=== PATIENT | female | born 1960 | race Caucasian/White ===

== ENCOUNTER 2022-12-03 08:35 | Outpatient (CLI) | payer OTHER, SELFPAY | END 2022-12-03 08:36 | disposition home or self-care (01) | PROVIDERS: Visit Provider Family Medicine | DX: R07.89 Other chest pain (principal); R11.2 Nausea with vomiting, unspecified | CPT/HCPCS: A0425; A0427 ==

== ENCOUNTER 2023-08-03 09:55 | Day surgery (SDC) | payer OTHER, MEDICARE, SELFPAY ==
[2023-08-03] MEDS: TETRACAINE 0.5% OPHTH 1 DROP EYE-RIGHT ×2 (10:04→10:15)
[2023-08-03] MEDS: KETOROLAC OPHTH 0.5% 1 DROP EYE-RIGHT ×2 (10:08→10:21)
[2023-08-03 10:34] VITALS: BP 145/94; PULSE 80; RESP 16; TEMP 37.2; O2SAT 94; BMI 38.7
[2023-08-03] MEDS: SODIUM CHLORIDE 0.9 % (FLUSH) 10 ML SYRINGE IVF (10:46)
[2023-08-03] MEDS: TETRACAINE 0.5% OPHTH 2 DROP EYE-RIGHT (10:52)
[2023-08-03] MEDS: BALANCED SALT IRRIG SOLN 15 ML EYE-RIGHT (10:54)
--- NOTE | 2023-08-03 11:23 | W.ANESCHARGE ---
Anesthesia Charges Start Date/Time Anesthesia Start Date: 08/03/23 Anesthesia Start Time: 10:48 Stop Date/Time Anesthesia Stop Date: 08/03/23 Anesthesia Stop Time: 11:24
--- NOTE | 2023-08-03 11:32 | W.ANESCHARGE ---
Anesthesia Charges Start Date/Time Anesthesia Start Date: 08/03/23 Anesthesia Start Time: 10:48 Stop Date/Time Anesthesia Stop Date: 08/03/23 Anesthesia Stop Time: 11:24
[2023-08-03 11:37] VITALS: BP 150/89; PULSE 77; RESP 18; TEMP 36.6; O2SAT 97
--- OUTSIDE RECORDS SUMMARY | 2023-08-03 12:34 | XMS_ITS | Encounter Summary ---
Author Name Unknown Organization [facility] Address [address], [place] [address] Care Team Providers Care Licensed Sales Producer Name Role Phone Vahid Castillo MD Primary Care Provider Unava ilable Encounter Details Date Type Department Care Team Description 09/16/1995 [place] [address] [place] [address] Social History Tobacco Use Types Packs/Day Years Used Date Smoking Tobacco: Never Assessed Sex and Gender Information Value Date Recorded Sex Assigned at Not on file Gender Identity Not on file Sexual Orientation Not on file documented as of this encounter Plan of Treatment Not on file documented as of this encounter Visit Diagnoses Not on filedocumented in this encounter Care Teams Licensed Sales Producer Relationship Specialty Start Date End Date Vahid Castillo MD PCP - General 06/06/11 documented as of this encounter
--- OUTSIDE RECORDS SUMMARY | 2023-08-03 12:34 | XMS_ITS | Encounter Summary ---
Author Name Unknown Organization [facility] Address [address], [place] [address] Care Team Providers Care Fishing Lure Assembler Name Role Phone Vahid Castillo MD Primary Care Provider Unava ilable Encounter Details Date Type Department Care Team Description 07/29/1995 Orders Only Bety Baldwin MD [address] [facility] [address] [place], [place] [id number] Social History Tobacco Use Types Packs/Day Years Used Date Smoking Tobacco: Never Assessed Sex and Gender Information Value Date Recorded Sex Assigned at Not on file Gender Identity Not on file Sexual Orientation Not on file documented as of this encounter Plan of Treatment Not on file documented as of this encounter Visit Diagnoses Not on filedocumented in this encounter Care Teams Fishing Lure Assembler Relationship Specialty Start Date End Date Vahid Castillo MD PCP - General 06/06/11 documented as of this encounter
--- OUTSIDE RECORDS SUMMARY | 2023-08-03 12:34 | XMS_ITS | Encounter Summary ---
Author Name Unknown Organization [facility] Address [address] [address] Care Team Providers Care Caramel Cutter Helper Name Role Phone Vahid Castillo MD Primary Care Provider Unava ilable Encounter Details Date Type Department Care Team Description 09/26/1999 Orders Only [facility], [place] [address] Social History Tobacco Use Types Packs/Day Years Used Date Smoking Tobacco: Never Assessed Sex and Gender Information Value Date Recorded Sex Assigned at Not on file Gender Identity Not on file Sexual Orientation Not on file documented as of this encounter Plan of Treatment Not on file documented as of this encounter Visit Diagnoses Not on filedocumented in this encounter Care Teams Caramel Cutter Helper Relationship Specialty Start Date End Date Vahid Castillo MD PCP - General 06/06/11 documented as of this encounter
--- OUTSIDE RECORDS SUMMARY | 2023-08-03 12:34 | XMS_ITS | Encounter Summary ---
Author Name Unknown Organization [facility] Address [address] [place] [address] Care Team Providers Care Recycling Center Operator Name Role Phone Vahid Castillo MD [...] on filedocumented in this encounter Care Teams Recycling Center Operator Relationship Specialty Start Date End Date Vahid Castillo MD PCP - General 06/06/11 documented as of this encounter
--- OUTSIDE RECORDS SUMMARY | 2023-08-03 12:34 | XMS_ITS | Encounter Summary ---
Author Name Unknown Organization [facility] Address [address] [address] Care Team Providers Care Caretaker Grounds Name Role Phone Vahid Castillo MD Primary Care Provider Unava ilable Encounter Details Date Type Department Care Team Description 09/01/1999 [place] [address] [place] [address] Social History Tobacco Use Types Packs/Day Years Used Date Smoking Tobacco: Never Assessed Sex and Gender Information Value Date Recorded Sex Assigned at Not on file Gender Identity Not on file Sexual Orientation Not on file documented as of this encounter Plan of Treatment Not on file documented as of this encounter Visit Diagnoses Not on filedocumented in this encounter Care Teams Caretaker Grounds Relationship Specialty Start Date End Date Vahid Castillo MD PCP - General 06/06/11 documented as of this encounter
--- OUTSIDE RECORDS SUMMARY | 2023-08-03 12:34 | XMS_ITS | Clinical Summary ---
Author Name Unknown Organization [facility] Address [address], [place] [address] Care Team Providers Care Christmas Tree Contractor Name Role Phone Vahid Castillo MD Primary Care Provider Unava ilable Source Comments You are receiving this document as you are listed as the primary care provider,follow-up provider, or the patient has been referred to you for consultation.This is in compliance with the Medicare and[facility] Hospitalcaid EHR Incentive Program,which states Providers who transition their patient to another setting of careor provider of care or refers their patient to another provider of care shouldprovide summary care record for each transition of care or referral. Replaced by [facility] Allergies Active Allergy Reactions Criticality Noted Date [...] Next Due Influenza IIV4 (Quadrivalent ) 0.5mL (48861) 03/19/2014 Influenza, Unspecified Formulation 08/22/2006 Td 12/10/1998,04/05/1990 [...] T Respiratory Rate 18 06/08/2011 7:00 AM BRICKLAYER PAVING BRICK Oxygen Saturation 93% 05/06/2016 2:09 PM CDT [...] age to complete this topic Care Teams Christmas Tree Contractor Relationship Specialty Start Date End Date Vahid Castillo MD PCP - General 06/06/11
--- OUTSIDE RECORDS SUMMARY | 2023-08-03 12:34 | XMS_ITS | Encounter Summary ---
Author Name Unknown Organization [facility] Address [address] [place] [address] Care Team Providers Care Costume Mistress Name Role Phone Vahid Castillo MD Primary [...] on filedocumented in this encounter Care Teams Costume Mistress Relationship Specialty Start Date End Date Vahid Castillo MD PCP - General 06/06/11 documented as of this encounter
--- OUTSIDE RECORDS SUMMARY | 2023-08-03 12:34 | XMS_ITS | Clinical Summary ---
Author Name Unknown Organization [facility] Address [place], [place] [address] Care Team Providers Care Grocery Bagger Name Role Phone Len Adhikari MD Primary [...] MD. 50 mL 0 9 Active Insulin [place], Disposable, (BD INSULIN PEN NEEDLE UF MINI) [...] Care Agent: Roosevelt Hernandez Relationship: spouse Phone: [phone] Secondary Health Care Agent: Amber Rivas Relationship: [...] on file and signed 01/14/2015. Designated pharmacy: [facility] [phone] Prescribing physician:Dr. Dyan Martin MD. Diagnosis: Dysthymia [...] was admitted to hospice 12/06/15. Please call [phone] with questions. Patient has identified Health Care Agent(s): Yes Add Health Care Agents: Yes Health Care Agent(s): Primary Health Care Agent: Roosevelt Hernandez Relationship: spouse Phone: [phone] Secondary Health Care Agent: Amber Rivas Relationship: [...] as needed for immediate comfort.- Avoid calling [phone], call [phone] instead - If possible do not transport [...] Care Agent: Rooseveltchristi FullerHernandez Relationship: Phone: (h) [phone] (c) [phone] Secondary Health Care Agent: Amber Rob Relationship: daughter Phone: (c) [phone] Third Health Care Agent: Juwan Hernandez Relationship: son Phone: (c) [phone] Fourth Health Care Agent: Delma Rob Relationship: daughter Phone: (c) [phone] Patient has Advanced Care Plan Documents (Health Care Directive, POLST): Yes Advance Care Plan Documents: Health Care Directive Patient has identified Specific Treatment Preferences: Yes Specific Treatment Preferences: a.) Code Status: CPR/Attempt Resuscitation Last Assessment & Plan: Advance Care Planning: Disease-specific Session Kaila Hernandez is a [facility] patient and her PCP is Dr. Yuriy Moreno; air tool operator is Dr. Gonzales and Dr. Chiki Benites is her pain doctor. Advance care planning discussions were completed with Kaila and her healthcare agent, , Roosevelt Hernandez. . 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 Kaila tells me she will miss them [...] Archana Young RN CM Advance Care Planning Registered Nurse Hh Case Manager [phone] e-mail: [email or web address] 02/11/2010 Other chronic pancreatitis 07/18/2007 Overview: numerouis [...] 2010 10/31/2010 03/30/2013 Overview: 1st relapse hospitalized [facility] October 2010 Shortness of breath 10/19/2010 [...] seen on ultrasound 2007. Plan: repeat ultrasound. [facility] Screen for colon cancer 04/07/201004/11 Advance [...] the fall. Second seizure was managed at [facility] and records not currently available. 3rd seziure [...] Overview: Dr. Chiki Benites- chronic pain, sees [id number] Dr. Rhys [facility]- [facility] LBP most [...] Routine general medical exam ination at a [facility] care facility 06/15/2005 01/14/2010 Overview: PE: 12/16 [...] Department Care Team Description 06/17/2023 Refill [facility] [address] [place] [address] Mary Del Cid NP Refill Request (Buprenorphine-naloxone ) 06/15/2023 Refill [facility] [address] [place] [address] Mary Del Cid NP Refill Request (Buprenorphine-naloxone [...] on file Medical Devices Implanted Type Area Leaded Glass Installer Device Identifier Shelf Expiration Date Model / Serial / Lot Port Silcn Power 8fr Isp Sgl Lumen - [id number] Implanted:Qty : 1 on 07/19/2011 at [facility] Left: Subclavian Vein 03/19/2013 [id number]# / / [id number] Bone Matrix 2.5cc Bio4 Viable - [id number] Implanted:Qty : 1 on 02/01/2017 by Jovany Gonzalez MD at [facility] Right: Ankle [employer] 01/21/2018 [id number] # / / [id number] Description:Unit No: 034 Plate Ankle 5 Hole Variax - [id number] Implanted:Qty : 1 on 02/01/2017 by Jovany Gonzalez MD at [facility] Right: Ankle [place] [employer] [id number]# / / Description:Sterilization lo ad 3 6 [id number] Screw Foot 3.5x12mm Variax Foot T10 Lock - [id number] Implanted:Qty : 2 on 02/01/2017 by Jovany Gonzalez MD at [facility] Right: Ankle [place] [employer] [id number]# / / Description:Sterilization lo ad 3 6 [id number] Screw Foot 3.5x14mm Variax Foot T10 Lock - [id number] Implanted:Qty : 3 on 02/01/2017 by Jovany Gonzalez MD at [facility] Right: Ankle [employer] [id number]# / / Description:Sterilization lo ad 3 6 [id number] Screw Foot 3.5x46mm Variax Foot T10 Non-Lock - [id number] Implanted:Qty : 1 on 02/01/2017 by Jovany Gonzalez MD at [facility] Right: Ankle [place] [employer] [id number]# / / Description:Sterilization lo ad 3 6 [id number] Screw Foot 3.5x42mm Variax Foot T10 Non-Lock - [id number] Implanted:Qty : 1 on 02/01/2017 by Jovany Gonzalez MD at [facility] Right: Ankle [place] [employer] [id number] # / / Description:Sterilization lo ad 3 6 [id number] Explanted Type Area Leaded Glass Installer Device Identifier Shelf Expiration Date Model / Serial / Lot Wire Kirs .[id number] Smoothacemedical - [id number] Explanted:Qty: 2 on 02/01/2017 at [facility] Right: Ankle [employer] 1645-10-0 00# / / Description:Sterilization lo ad 1 8 [id number] Wire Kirs .[id number] Smooth6/Pk - [id number] Explanted:Qty: 1 on 02/01/2017 at [facility] Right: Ankle [employer] 1646-10-0 00# / / Description:Sterilization lo ad 1 8 [id number] Additional Health Concerns Infection Onset Date Last [...] presenting with C diff symptoms 08/17/2018 11/21/2018 Advance Directives Documents on File Type Date Recorded Patient Plywood And Veneer Repairer Expl anation POLST 12/12/2015 3:32 PM 12/11/15 [...] Comments Code Status Discussion: Discussed Care Teams Grocery Bagger Relationship Specialty Start Date End Date Len Adhikari MD PCP - General 01/27/17
--- OUTSIDE RECORDS SUMMARY | 2023-08-03 12:34 | XMS_ITS | Encounter Summary ---
Author Name Unknown Organization [facility] Address [address], [place] [address] Care Team Providers Care Field Crop Farmworker Name Role Phone Vahid Castillo MD Primary Care Provider Unava ilable Encounter Details Date Type Department Care Team Description 10/03/1999 Orders Only [employer] [place], [place] [address] Social History Tobacco Use Types Packs/Day Years Used Date Smoking Tobacco: Never Assessed Sex and Gender Information Value Date Recorded Sex Assigned at Not on file Gender Identity Not on file Sexual Orientation Not on file documented as of this encounter Plan of Treatment Not on file documented as of this encounter Visit Diagnoses Not on filedocumented in this encounter Care Teams Field Crop Farmworker Relationship Specialty Start Date End Date Vahid Castillo MD PCP - General 06/06/11 documented as of this encounter
--- OUTSIDE RECORDS SUMMARY | 2023-08-03 12:34 | XMS_ITS | Encounter Summary ---
Author Name Unknown Organization [facility] Address [address] [address] Care Team Providers Care Supervisor Die Casting Name Role Phone Vahid Castillo MD Primary Care Provider Unava ilable Encounter Details Date Type Department Care Team Description 09/03/1999 [place] [address] [place] [address] Social History Tobacco Use Types Packs/Day Years Used Date Smoking Tobacco: Never Assessed Sex and Gender Information Value Date Recorded Sex Assigned at Not on file Gender Identity Not on file Sexual Orientation Not on file documented as of this encounter Plan of Treatment Not on file documented as of this encounter Visit Diagnoses Not on filedocumented in this encounter Care Teams Supervisor Die Casting Relationship Specialty Start Date End Date Vahid Castillo MD PCP - General 06/06/11 documented as of this encounter
--- OUTSIDE RECORDS SUMMARY | 2023-08-03 12:34 | XMS_ITS | Encounter Summary ---
Author Name Unknown Organization [facility] Address [address] [place] [address] Care Team Providers Care Lead Manufacturing Engineering Tech Name Role Phone Vahid Castillo MD Primary [...] on filedocumented in this encounter Care Teams Lead Manufacturing Engineering Tech Relationship Specialty Start Date End Date Vahid Castillo MD PCP - General 06/06/11 documented as of this encounter
--- OUTSIDE RECORDS SUMMARY | 2023-08-03 12:34 | XMS_ITS | Encounter Summary ---
Author Name Unknown Organization [facility] Address [address], [place] [address] Care Team Providers Care Thermal Engineer Name Role Phone Vahid Castillo MD Primary Care Provider Unava ilable Encounter Details Date Type Department Care Team Description 09/30/1999 Orders Only [employer], [place] [address] Social History Tobacco Use Types Packs/Day Years Used Date Smoking Tobacco: Never Assessed Sex and Gender Information Value Date Recorded Sex Assigned at Not on file Gender Identity Not on file Sexual Orientation Not on file documented as of this encounter Plan of Treatment Not on file documented as of this encounter Visit Diagnoses Not on filedocumented in this encounter Care Teams Thermal Engineer Relationship Specialty Start Date End Date Vahid Castillo MD PCP - General 06/06/11 documented as of this encounter
--- OUTSIDE RECORDS SUMMARY | 2023-08-03 12:34 | XMS_ITS | Encounter Summary ---
Author Name Unknown Organization [facility] Address [address] [place] [address] Care Team Providers Care Director Multiple Sclerosis Center Name Role Phone Vahid Castillo MD Primary [...] on filedocumented in this encounter Care Teams Director Multiple Sclerosis Center Relationship Specialty Start Date End Date Vahid Castillo MD PCP - General 06/06/11 documented as of this encounter
--- OUTSIDE RECORDS SUMMARY | 2023-08-03 12:34 | XMS_ITS | Encounter Summary ---
Author Name Unknown Organization [facility] Address [address] [address] Care Team Providers Care Practice Manager Name Role Phone Vahid Castillo MD Primary Care Provider Unava ilable Encounter Details Date Type Department Care Team Description 12/01/1999 Orders Only [employer], [place] [address] Social History Tobacco Use Types Packs/Day Years Used Date Smoking Tobacco: Never Assessed Sex and Gender Information Value Date Recorded Sex Assigned at Not on file Gender Identity Not on file Sexual Orientation Not on file documented as of this encounter Plan of Treatment Not on file documented as of this encounter Visit Diagnoses Not on filedocumented in this encounter Care Teams Practice Manager Relationship Specialty Start Date End Date Vahid Castillo MD PCP - General 06/06/11 documented as of this encounter
--- OUTSIDE RECORDS SUMMARY | 2023-08-03 12:34 | XMS_ITS | Encounter Summary ---
Author Name Unknown Organization [facility] Address [address], [place] [address] Care Team Providers Care Digital Associate Name Role Phone Vahid Castillo MD Primary Care Provider Unava ilable Encounter Details Date Type Department Care Team Description 01/26/2000 Orders Only [place] [facility] [place] [address] Klaus De MD [address] [place] [address] Social History Tobacco Use Types Packs/Day Years Used Date Smoking Tobacco: Never Assessed Sex and Gender Information Value Date Recorded Sex Assigned at Not on file Gender Identity Not on file Sexual Orientation Not on file documented as of this encounter Plan of Treatment Not on file documented as of this encounter Visit Diagnoses Not on filedocumented in this encounter Care Teams Digital Associate Relationship Specialty Start Date End Date Vahid Castillo MD PCP - General 06/06/11 documented as of this encounter
--- OUTSIDE RECORDS SUMMARY | 2023-08-03 12:34 | XMS_ITS | Encounter Summary ---
Author Name Unknown Organization [facility] Address [address] [place] [address] Care Team Providers Care Fur Scraper Name Role Phone Vahid Castillo MD Primary [...] on filedocumented in this encounter Care Teams Fur Scraper Relationship Specialty Start Date End Date Vahid Castillo MD PCP - General 06/06/11 documented as of this encounter
--- OUTSIDE RECORDS SUMMARY | 2023-08-03 12:34 | XMS_ITS | Encounter Summary ---
Author Name Unknown Organization [facility] Address [address], [place] [address] Care Team Providers Care Senior Mechanical Project Manager Name Role Phone Vahid Castillo MD Primary Care Provider Unava ilable Encounter Details Date Type Department Care Team Description 12/08/1999 Orders Only [employer], [place] [address] Social History Tobacco Use Types Packs/Day Years Used Date Smoking Tobacco: Never Assessed Sex and Gender Information Value Date Recorded Sex Assigned at Not on file Gender Identity Not on file Sexual Orientation Not on file documented as of this encounter Plan of Treatment Not on file documented as of this encounter Visit Diagnoses Not on filedocumented in this encounter Care Teams Senior Mechanical Project Manager Relationship Specialty Start Date End Date Vahid Castillo MD PCP - General 06/06/11 documented as of this encounter
--- OUTSIDE RECORDS SUMMARY | 2023-08-03 12:34 | XMS_ITS | Encounter Summary ---
Author Name Unknown Organization [facility] Address [address], [place] [address] Care Team Providers Care Frame Carver Spindle Name Role Phone Vahid Castillo MD Primary Care Provider Unava ilable Encounter Details Date Type Department Care Team Description 07/21/1995 Orders Only Bety Baldwin MD [address] [facility] [address] [place], [place] [id number] Social History Tobacco Use Types Packs/Day Years Used Date Smoking Tobacco: Never Assessed Sex and Gender Information Value Date Recorded Sex Assigned at Not on file Gender Identity Not on file Sexual Orientation Not on file documented as of this encounter Plan of Treatment Not on file documented as of this encounter Visit Diagnoses Not on filedocumented in this encounter Care Teams Frame Carver Spindle Relationship Specialty Start Date End Date Vahid Castillo MD PCP - General 06/06/11 documented as of this encounter
--- OUTSIDE RECORDS SUMMARY | 2023-08-03 12:34 | XMS_ITS | Encounter Summary ---
Author Name Unknown Organization [facility] Address [address] [place] [address] Care Team Providers Care A/C Tech Name Role Phone Vahid Castillo MD [...] on filedocumented in this encounter Care Teams A/C Tech Relationship Specialty Start Date End Date Vahid Castillo MD PCP - General 06/06/11 documented as of this encounter
--- OUTSIDE RECORDS SUMMARY | 2023-08-03 12:34 | XMS_ITS | Encounter Summary ---
Author Name Unknown Organization [facility] Address [address] [address] Care Team Providers Care Restaurant Shift Leader Name Role Phone Vahid Castillo MD Primary Care Provider Unava ilable Encounter Details Date Type Department Care Team Description 01/11/2000 Orders Only [place] [facility] [place] [address] Klaus De MD [address] [place] [address] Social History Tobacco Use Types Packs/Day Years Used Date Smoking Tobacco: Never Assessed Sex and Gender Information Value Date Recorded Sex Assigned at Not on file Gender Identity Not on file Sexual Orientation Not on file documented as of this encounter Plan of Treatment Not on file documented as of this encounter Visit Diagnoses Not on filedocumented in this encounter Care Teams Restaurant Shift Leader Relationship Specialty Start Date End Date Vahid Castillo MD PCP - General 06/06/11 documented as of this encounter
--- OUTSIDE RECORDS SUMMARY | 2023-08-03 12:34 | XMS_ITS | Encounter Summary ---
Author Name Unknown Organization [facility] Address [address] [address] Care Team Providers Care Networks Software Consultant Name Role Phone Vahid Castillo MD Primary Care Provider Unava ilable Encounter Details Date Type Department Care Team Description 11/30/1999 Orders Only [employer], [place] [address] Social History Tobacco Use Types Packs/Day Years Used Date Smoking Tobacco: Never Assessed Sex and Gender Information Value Date Recorded Sex Assigned at Not on file Gender Identity Not on file Sexual Orientation Not on file documented as of this encounter Plan of Treatment Not on file documented as of this encounter Visit Diagnoses Not on filedocumented in this encounter Care Teams Networks Software Consultant Relationship Specialty Start Date End Date Vahid Castillo MD PCP - General 06/06/11 documented as of this encounter
--- OUTSIDE RECORDS SUMMARY | 2023-08-03 12:34 | XMS_ITS | Encounter Summary ---
Author Name Unknown Organization [facility] Address [address] [place] [address] Care Team Providers Care Hand Binder Cutter Name Role Phone Vahid Castillo MD Primary [...] on filedocumented in this encounter Care Teams Hand Binder Cutter Relationship Specialty Start Date End Date Vahid Castillo MD PCP - General 06/06/11 documented as of this encounter
--- OUTSIDE RECORDS SUMMARY | 2023-08-03 12:34 | XMS_ITS | Encounter Summary ---
Author Name Unknown Organization [facility] Address [address] [address] Care Team Providers Care Home Care Chaplain Name Role Phone Vahid Castillo MD Primary Care Provider Unava ilable Encounter Details Date Type Department Care Team Description 12/04/1999 Orders Only [place] [facility] [place] [address] Klaus De MD [address] [place] [address] Social History Tobacco Use Types Packs/Day Years Used Date Smoking Tobacco: Never Assessed Sex and Gender Information Value Date Recorded Sex Assigned at Not on file Gender Identity Not on file Sexual Orientation Not on file documented as of this encounter Plan of Treatment Not on file documented as of this encounter Visit Diagnoses Not on filedocumented in this encounter Care Teams Home Care Chaplain Relationship Specialty Start Date End Date Vahid Castillo MD PCP - General 06/06/11 documented as of this encounter
--- OUTSIDE RECORDS SUMMARY | 2023-08-03 12:35 | XMS_ITS | Encounter Summary ---
Author Name Unknown Organization [facility] Address [address] [address] Care Team Providers Care Metal Dresser Name Role Phone Vahid Castillo MD Primary Care Provider Unava ilable Encounter Details Date Type Department Care Team Description 07/20/1995 Orders Only [facility] Jese Courtney MD [address] [address] Social History Tobacco Use Types Packs/Day Years Used Date Smoking Tobacco: Never Assessed Sex and Gender Information Value Date Recorded Sex Assigned at Not on file Gender Identity Not on file Sexual Orientation Not on file documented as of this encounter Plan of Treatment Not on file documented as of this encounter Visit Diagnoses Not on filedocumented in this encounter Care Teams Metal Dresser Relationship Specialty Start Date End Date Vahid Castillo MD PCP - General 06/06/11 documented as of this encounter
--- OUTSIDE RECORDS SUMMARY | 2023-08-03 12:35 | XMS_ITS | Encounter Summary ---
Author Name Unknown Organization [facility] Address [address], [place] [address] Care Team Providers Care Project Construction Assistant Manager Name Role Phone Vahid Castillo MD Primary Care Provider Unava ilable Encounter Details Date Type Department Care Team Description 07/21/1994 Orders Only [facility] Jese Courtney MD [address] [address] Social History Tobacco Use Types Packs/Day Years Used Date Smoking Tobacco: Never Assessed Sex and Gender Information Value Date Recorded Sex Assigned at Not on file Gender Identity Not on file Sexual Orientation Not on file documented as of this encounter Plan of Treatment Not on file documented as of this encounter Visit Diagnoses Not on filedocumented in this encounter Care Teams Project Construction Assistant Manager Relationship Specialty Start Date End Date Vahid Castillo MD PCP - General 06/06/11 documented as of this encounter
--- OUTSIDE RECORDS SUMMARY | 2023-08-03 12:35 | XMS_ITS | Encounter Summary ---
Author Name Unknown Organization [facility] Address [address], [place] [address] Care Team Providers Care Otolaryngology Teacher Name Role Phone Vahid Castillo MD Primary Care Provider Unava ilable Encounter Details Date Type Department Care Team Description 07/17/1995 Orders Only Erick Pham MD [address] [place], [place] [address] Social History Tobacco Use Types Packs/Day Years Used Date Smoking Tobacco: Never Assessed Sex and Gender Information Value Date Recorded Sex Assigned at Not on file Gender Identity Not on file Sexual Orientation Not on file documented as of this encounter Plan of Treatment Not on file documented as of this encounter Visit Diagnoses Not on filedocumented in this encounter Care Teams Otolaryngology Teacher Relationship Specialty Start Date End Date Vahid Castillo MD PCP - General 06/06/11 documented as of this encounter
--- OUTSIDE RECORDS SUMMARY | 2023-08-03 12:35 | XMS_ITS | Encounter Summary ---
Author Name Unknown Organization [facility] Address [address] [address] Care Team Providers Care Program Attendant Name Role Phone Vahid Castillo MD Primary Care Provider Unava ilable Encounter Details Date Type Department Care Team Description 04/19/1995 Orders Only [facility] Jese Courtney MD [facility] [id number] [place] [address] Social History Tobacco Use Types Packs/Day Years Used Date Smoking Tobacco: Never Assessed Sex and Gender Information Value Date Recorded Sex Assigned at Not on file Gender Identity Not on file Sexual Orientation Not on file documented as of this encounter Plan of Treatment Not on file documented as of this encounter Visit Diagnoses Not on filedocumented in this encounter Care Teams Program Attendant Relationship Specialty Start Date End Date Vahid Castillo MD PCP - General 06/06/11 documented as of this encounter
--- OUTSIDE RECORDS SUMMARY | 2023-08-03 12:35 | XMS_ITS | Encounter Summary ---
Author Name Unknown Organization [facility] Address [address] [address] Care Team Providers Care Tobacco Primer Machine Operator Name Role Phone Vahid Castillo MD Primary Care Provider Unava ilable Encounter Details Date Type Department Care Team Description 10/11/1994 Orders Only [facility] Jese Courtney MD [facility] [id number] [place] [address] Social History Tobacco Use Types Packs/Day Years Used Date Smoking Tobacco: Never Assessed Sex and Gender Information Value Date Recorded Sex Assigned at Not on file Gender Identity Not on file Sexual Orientation Not on file documented as of this encounter Plan of Treatment Not on file documented as of this encounter Visit Diagnoses Not on filedocumented in this encounter Care Teams Tobacco Primer Machine Operator Relationship Specialty Start Date End Date Vahid Castillo MD PCP - General 06/06/11 documented as of this encounter
--- OUTSIDE RECORDS SUMMARY | 2023-08-03 12:35 | XMS_ITS | Encounter Summary ---
Author Name Unknown Organization [facility] Address [address] [address] Care Team Providers Care Special Client Bus Driver Name Role Phone Vahid Castillo MD Primary Care Provider Unava ilable Encounter Details Date Type Department Care Team Description 05/24/1995 Orders Only Bety Baldwin MD [address] [facility] [address] [place], [place] [id number] Social History Tobacco Use Types Packs/Day Years Used Date Smoking Tobacco: Never Assessed Sex and Gender Information Value Date Recorded Sex Assigned at Not on file Gender Identity Not on file Sexual Orientation Not on file documented as of this encounter Plan of Treatment Not on file documented as of this encounter Visit Diagnoses Not on filedocumented in this encounter Care Teams Special Client Bus Driver Relationship Specialty Start Date End Date Vahid Castillo MD PCP - General 06/06/11 documented as of this encounter
--- OUTSIDE RECORDS SUMMARY | 2023-08-03 12:35 | XMS_ITS | Clinical Summary ---
Author Name Unknown Organization [facility] Address [address] [place] [address]. [place] [address] Care Team Providers Care Banquet Line Cook Name Role Phone Jovany Gonzalez MD Unavailable CrissyStaci jeong NP Unavailable [phone] Unavailable [phone] Roshni Nascimento RN Unavailable Unavailable Kiet Swain MD Unavailable [phone] Winsome Pike APRN GEOPHYSICS PROFESSOR Unavailable [phone] Tori Hines [facility] Unavailable Miranda Queen [facility] Unavailable Unavailable Marisel Armando MD Unavailable Wesley Barrett MD Unavailable [phone] Dyan Fuentes MD Primary Care Provider [phone] Dyan Fuentes MD Unavailable [phone] Katiana Read MD Unavailable [phone] Mary Del Cid VETERINARY VIROLOGIST Unavailable [phone] Elham Stack [facility] Unavailable [phone] Aubrey Jones MD Unavailable [phone] Blanquita Morales Unavailable Unavailable Aubrey Jones MD Unavailable [phone] Allergies Active Allergy Reactions Criticality Noted Date [...] 1 06/14/20 22 Active Continuous Blood Gluc Skin Care Instructor (DEXCOM G6 SENIOR MANUFACTURING ENGINEER) DEVIIndications:T ype 2 diabetes mellitus without complication, [...] 4 times daily 0 Active nystatin (MYCOSTATIN) [id number] UNIT/GM external ointment Apply topically 2 times [...] nasal sprayIndications: At risk for substance overdose [place] 1 spray (4 mg) into one nostril [...] Type Department Care Team Description 08/02/2023 Telephone [facility] [place] [id number] [facility] [address] [place] [address] Mary Del Cid NP Medication Request 08/01/2023 2:00 PM OPERATING SYSTEMS SPECIALIST Office Visit [facility] [address] [place] [address] Haydee Moody NP Preop general physical exam (Primary Dx); Need for shingles vaccine; Benign essential hypertension; Chronic obstructive pulmonary disease, unspecified COPD type (H); Morbid obesity (H); Hypertriglyceridemia; Hypothyroidism, unspecified type; Chronic kidney disease, stage 3a (H); Uncomplicated opioid dependence (H); Type 1 diabetes mellitus with other specified complication (H) 08/01/2023 Travel 07/26/2023 Telephone [facility] [address] [place] [address] Dyan Fuentes MD Panel Management 07/25/2023 MyC Medical Advice [address] [address] Roshni Nascimento RN 07/21/2023 Refill [facility] [address] [place] [address] Katiana Read MD Medication Refill 07/19/2023 3:00 PM OPERATING SYSTEMS SPECIALIST Virtual Visit [facility] [address] [facility] [address] [place] [address] Mary Del Cid NP Chronic pain syndrome (Primary Dx); S/P lumbar laminectomy; S/P cervical spinal fusion; Muscle spasm 07/18/2023 Telephone [facility] [address] [place] [address] Mary Del Cid NP Opioid Refill (buprenorphine HCl-naloxone HCl (SUBOXONE) 4-1 MG per film ) 07/14/2023 Orders Only [address] [address] Lenka Parks PA-C Postprocedural hypothyroidism 07/13/2023 Telephone [facility] [address] [place] [address] Katiana Read MD 07/12/2023 10:30 AM OPERATING SYSTEMS SPECIALIST Office Visit [facility] [address] [place] [address] Lenka Parks PA-C Type 2 diabetes mellitus without complication, without long-term current use of insulin (H) (Primary Dx); Chronic kidney disease, stage 3a (H); Postablative hypothyroidism; Type 2 diabetes mellitus without complication, with long-term current use of insulin (H); Type 1 diabetes mellitus with diabetic neuropathy (H) 07/12/2023 MyC Medical Advice [facility] [address] [facility] 1st [place] [address] Sagrario Chidi S 07/12/2023 MyC Medical Advice [facility] [address] [place] [phone] Rachelle Benites ROBOTIC WELD TECHNICIAN MyChart Communication 07/12/2023 Travel 07/11/2023 Travel 06/23/2023 2:30 PM OPERATING SYSTEMS SPECIALIST Office Visit [address] [address] Dyan Fuentes MD Routine general [...] <100 06/23/2023 Travel 06/20/2023 Travel 06/20/2023 Refill [facility] [place] [address] [place] [address] [address] [place] [address] Mary Del Cid NP Opioid Refill (buprenorphine HCl-naloxone HCl (SUBOXONE) 4-1 MG per film) 05/31/2023 4:00 PM OPERATING SYSTEMS SPECIALIST Therapy Visit [facility] [address] [place] [address] [address] [place] [address] Dyan Villar PT Chronic pain syndrome (Primary Dx) 05/31/2023 Travel 05/27/2023 Telephone [facility] [address] [place] [phone] Dyan Fuentes MD Progress 05/17/2023 Refill [facility] [place] [address] [facility] [address] [place] [address] Mary Del Cid NP Opioid Refill (buprenorphine HCl-naloxone HCl (SUBOXONE) 4-1 MG per film) 05/12/2023 2:30 PM CDT Office Visit [facility] [address] [place] [phone] Dyan Fuentes MD Chronic obstructive pulmonary disease, unspecified COPD type (H) (Primary Dx); Tobacco use disorder; Benign essential hypertension; Type 2 diabetes mellitus without complication, with long-term current use of insulin (H); Vitamin B12 deficiency; Hypertriglyceridemia; Gastroesophageal reflux disease without esophagitis; Hyperlipidemia LDL goal <100; Abdominal pain, generalized; Elevated d-dimer 05/12/2023 Travel 05/11/2023 3:40 PM CDT Therapy Visit [facility] [address] [facility] [address] [place] [address] Mary Del Cid NP Edwards, Jennifer, PT Chronic pain syndrome (Primary Dx) 05/11/2023 Travel 05/03/2023 10:30 AM CDT Office Visit [facility] [address] [place] [address] [address] [place] [phone] Aubrey Jones MD Abnormal electrocardiogram 05/03/[address] [address] Dyan Fuentes MD 05/03/2023 Travel from Last 3 Months Immunizations Name Administration Dates Next Due COVID-19 12+ () (Pfizer) 05/12/2023 COVID-19 Vaccine (Art.[employer]) 09/22/2020 Flu, Unspecified 08/22/2006 Hepatitis B, Adult [...] week 06/20/2023 How often do you attend druze or rastafarian serv ices? Never 06/20/2023 Do you belong to any clubs o r organizations such as druze groups, unions, fraternal or athletic groups, or [...] Answer Date Recorded PHQ-2 Score 2 08/01/2023 [facility] of Occupat [...] Comments Blood Pressure 119/82 08/01/2023 1:22 PM OPERATING SYSTEMS SPECIALIST Pulse 70 08/01/2023 1:22 PM OPERATING SYSTEMS SPECIALIST Temperature 36.6 ??C (97.8 ??F) 08/01/2023 1:22 PM CS T Respiratory Rate 20 08/01/2023 1:22 PM OPERATING SYSTEMS SPECIALIST Oxygen Saturation 96% 08/01/2023 1:22 PM OPERATING SYSTEMS SPECIALIST Inhaled Oxygen Concentration - - Weight 115.7 kg (255 lb) 08/01/2023 1:22 PM OPERATING SYSTEMS SPECIALIST Height 172.7 cm (5' 8) 08/01/2023 1:22 PM OPERATING SYSTEMS SPECIALIST Body Mass Index 38.77 08/01/2023 1:22 PM OPERATING SYSTEMS SPECIALIST Plan of Treatment Upcoming Encounters Date Type Department Care Team (Late st Contact Info) Description 08/18/2023 3:00 PM OPERATING SYSTEMS SPECIALIST Office Visit [facility] [address] [place] [address] Katiana Read MD [address] [place] [address] Health Maintenance Due Date Last [...] Blanquita Morales Medical Devices Implanted Type Area Government Affairs Specialist Device Identifier Shelf Expiration Date Model / Serial / Lot Bone Matrix 5c Bio4 [id number] - [id number] Implanted:Qty: 1 on 12/13/2017 Bone/Tissu e/Biologic Right: Ankle [employer] 01/18/2019 [id number] / [id number] / [id number] Graft Bone Putty Dbx 01ml [id number] - [id number] Implanted:Qty: 1 on 05/18/2021 by Wesley Barrett MD at [facility] Bone/Tissu e/Biologic N/A: Spine Cervical [employer] 11/19/2022 [id number] / / [id number] [place] Iconix 2.3mm With 2.0mm Braid Implanted:Qty: 1 on 12/13/2017 Metallic Hardware/A nchor Right: Ankle [employer] 07/02/2019 [id number] / / [id number] 6.5mm Low Profile Hex Scr 20mm Implanted:Qty: 1 on 08/06/2020 by Lencho Mayo MD at [facility] Metallic Hardware/A nchor Right: Hip [employer] 08/18/2024 [id number] / / [id number] 4.[address] Screw Implanted:Qty: 1 on 05/18/2021 by Wesley Barrett MD at [facility] Metallic Hardware/A nchor N/A: Spine Cervical [employer] [id number] / / [id number] 2020 Imp Head Femoral Strk Biolox Delta Ceramic V40 36mm Implanted:Qty: 1 on 08/06/2020 by Lencho Mayo MD at [facility] Total Joint Component/ Insert Right: Hip [employer] 04/10/2025 [id number] 6 / / [id number] Power Port Trident Ii Tritanium, Clusterhole Acetabular Shell, Janeth 50mm Implanted:Qty: 1 on 08/06/2020 by Lencho Mayo MD at [facility] Right: Hip [employer] 03/15/2023 702-04-50 D / / [id number] Endoskeleton Tc Interbody System Medium 16mmx 14mm X 7mm- 6 Degree Implanted:Qty: 1 on 05/18/2021 by Wesley Barrett MD at [facility] N/A: Spine Cervical [employer] 02/05/2026 [id number] -[id number] / / [id number] Explanted Type Area Government Affairs Specialist Device Identifier Shelf Expiration Date Model / Serial / Lot 3.[address] Screw Explanted:Qty : 1 on 05/18/2021 by Wesley Barrett MD at [facility] Metallic Hardware/Anc hor N/A: Spine Cervical [employer] [id number] / / [id number] 11NOV 2020 Port-/ 8 Implanted:Qty : 1 on 08/31/2017 by Ace Valles MD Explanted:Qty : 1 on 08/12/2020 by Ace Valles MD Port Right: Vein BARD 04/09/2018 REF [id number] / / [id number] Procedures Procedure Name Priority Date/Time Associated Diagnosis Comments T4 FREE Routine 07/12/2023 11:07 AM OPERATING SYSTEMS SPECIALIST Postablative hypothyroidism TSH Routine 07/12/2023 11:07 AM OPERATING SYSTEMS SPECIALIST Postablative hypothyroidism LIPID REFLEX TO DIRECT LDL PANEL Routine 06/23/2023 3:28 PM OPERATING SYSTEMS SPECIALIST Hyperlipidemia LDL goal <100 ALBUMIN RANDOM URINE QUANTITATIVE Routine 06/23/2023 3:28 PM OPERATING SYSTEMS SPECIALIST Type 2 diabetes mellitus without complication, with long-term current use of insulin (H) URINE DRUG SCREEN CLINIC Routine 06/23/2023 3:28 PM OPERATING SYSTEMS SPECIALIST Other chronic pain HEMOGLOBIN A1C Routine 06/23/2023 3:28 PM OPERATING SYSTEMS SPECIALIST Type 2 diabetes mellitus without complication, with long-term current use of insulin (H) BASIC METABOLIC PANEL Routine 06/23/2023 3:28 PM OPERATING SYSTEMS SPECIALIST Benign essential hypertension D DIMER QUANTITATIVE Routine 05/12/2023 2:50 PM CDT Elevated d-dimer EKG 12-LEAD COMPLETE W/READ - CLINICS Routine 05/03/2023 Abnormal electrocardiogram from Last 3 Months Results * (ABNORMAL) TSH (07/12/2023 11:07 AM OPERATING SYSTEMS SPECIALIST) TSH 74.10(H) 0.30 - 4.20 uIU/mL 07/12/2023 10:35 PM OPERATING SYSTEMS SPECIALIST [facility] Blood BLOOD SPECIMEN / Unknown Venipuncture / Unknown 07/12/2023 11:07 AM OPERATING SYSTEMS SPECIALIST 07/12/2023 11:07 AM OPERATING SYSTEMS SPECIALIST Lenka Parks PA-C LAB - BLOOD ORDERABL ES [facility] [address] [facility], [address] [place] [address], [facility] [phone] * (ABNORMAL) T4, free (07/12/2023 11:07 AM OPERATING SYSTEMS SPECIALIST) Free T4 0.53(L) 0.90 - 1.70 ng/dL 07/12/2023 10:35 PM OPERATING SYSTEMS SPECIALIST [facility] Blood BLOOD SPECIMEN / Unknown Venipuncture / Unknown 07/12/2023 11:07 AM OPERATING SYSTEMS SPECIALIST 07/12/2023 11:07 AM OPERATING SYSTEMS SPECIALIST Lenka Parks PA-C LAB - BLOOD ORDERABL ES [facility] [place] [facility] [address] [facility], [address] [place] [address] [phone] * (ABNORMAL) Drug Abuse Screen Panel 13, Urine (Pain Care Map) - lab collect (06/23/2023 3:28 PM OPERATING SYSTEMS SPECIALIST) Pathologist [facility] Cannabinoids (67-mpz-3-carboxy -9-THC) Detected(A ) Not Detected, Indeterminate 06/24/2023 2:08 PM OPERATING SYSTEMS SPECIALIST [facility] Comment: Cutoff for a positive cannabinoid is greater than 50 ng/ml. This is an unconfirmed screening result to be used for medical purposes only. Phencyclidine Not Detected Not Detected, Indeterminate 06/24/2023 2:08 PM OPERATING SYSTEMS SPECIALIST [facility] Comment:Cutoff for a negativ e PCP is 25 ng/mL or less. Cocaine (Benzoylecgonine) Not Detected Not Detected, Indeterminate 06/24/2023 2:08 PM OPERATING SYSTEMS SPECIALIST [facility] Comment:Cutoff for a negativ e cocaine is 150 ng/ml or less. Methamphetamine (d-Methamphetamin e) Not Detected Not Detected, Indeterminate 06/24/2023 2:08 PM OPERATING SYSTEMS SPECIALIST [facility] Comment:Cutoff for a negativ e methamphetamine is 500 ng/ml or less. Opiates (Morphine) Not Detected Not Detected, Indeterminate 06/24/2023 2:08 PM OPERATING SYSTEMS SPECIALIST [facility] Comment:Cutoff for a negativ e opiate is 100 ng/ml or less. Amphetamine (d-Amphetamine) Not Detected Not Detected, Indeterminate 06/24/2023 2:08 PM OPERATING SYSTEMS SPECIALIST [facility] Comment:Cutoff for a negativ e amphetamine is 500 ng/mL or less. Benzodiazepines (Nordiazepam) Not Detected Not Detected, Indeterminate 06/24/2023 2:08 PM OPERATING SYSTEMS SPECIALIST [facility] Comment:Cutoff for a negativ e benzodiazepine is 150 ng/ml or less. Tricyclic Antidepressants (Desipramine) Not Detected Not Detected, Indeterminate 06/24/2023 2:08 PM OPERATING SYSTEMS SPECIALIST [facility] Comment:Cutoff for a negativ e tricyclic antidepressant is 300 ng/ml or less. Methadone Not Detected Not Detected, Indeterminate 06/24/2023 2:08 PM OPERATING SYSTEMS SPECIALIST [facility] Comment:Cutoff for a negativ e methadone is 200 ng/ml or less. Barbiturates (Butalbital) Not Detected Not Detected, Indeterminate 06/24/2023 2:08 PM OPERATING SYSTEMS SPECIALIST [facility] Comment:Cutoff for a negativ e barbituate is 200 ng/ml or less. Oxycodone Not Detected Not Detected, Indeterminate 06/24/2023 2:08 PM OPERATING SYSTEMS SPECIALIST [facility] Comment:Cutoff for a negativ e oxycodone is 100 ng/mL or less. Buprenorphine Detected(A ) Not Detected, Indeterminate 06/24/2023 2:08 PM OPERATING SYSTEMS SPECIALIST [facility] Comment: Cutoff for a positive buprenorphine is greater than 10 ng/ml. This is an unconfirmed screening result to be used for medical purposes only. Urine MID-STREAM URINE SPECIMEN / Unknown Non-blood Collection / Unknown 06/23/2023 3:28 PM OPERATING SYSTEMS SPECIALIST 06/23/2023 3:34 PM OPERATING SYSTEMS SPECIALIST Dyan Fuentes MD LAB - URINE ORDER LENA [facility] [address] Lab (no room number, 1st floor of clinic) [place] [address], [facility] [phone] * Albumin Random Urine Quantitative with Creat Ratio (06/23/2023 3:28 PM OPERATING SYSTEMS SPECIALIST) Creatinine Urine mg/dL 42.4 mg/dL 06/24/2023 6:21 PM OPERATING SYSTEMS SPECIALIST [facility] Comment:The reference ranges have not been established in urine creatinine. The results should be integrated into the clinical context for interpretation. Albumin Urine mg/L <12.0 mg/L 2022 6:21 PM OPERATING SYSTEMS SPECIALIST [facility] Comment:The reference ranges have not been established in urine albumin. The results should be integrated into the clinical context for interpretation. Albumin Urine mg/g Cr 06/24/2023 6:21 PM OPERATING SYSTEMS SPECIALIST [facility] Comment: Unable to calculate, urine [...] control, and institution of therapy with an atlklddqjyx-njbxwuzcbu-qnnqbq (MACK) inhibitor (if the patient can tolerate it). ?? Urine MID-STREAM URINE SPECIMEN / Unknown Non-blood Collection / Unknown 06/23/2023 3:28 PM OPERATING SYSTEMS SPECIALIST 06/23/2023 3:34 PM OPERATING SYSTEMS SPECIALIST Dyan Fuentes MD LAB - URINE ORDER LENA [facility] [address] [facility], [address] [place] [address], [facility] [phone] * (ABNORMAL) Lipid panel reflex to direct LDL Fasting (06/23/2023 3:28 PM OPERATING SYSTEMS SPECIALIST) Cholesterol 244(H) <200 mg/dL 06/24/2023 6:12 PM OPERATING SYSTEMS SPECIALIST [facility] Triglycerides 168(H) <150 mg/dL 06/24/2023 6:12 PM OPERATING SYSTEMS SPECIALIST [facility] Direct Measure HDL 75 >=50 mg/dL 06/24/2023 6:12 PM OPERATING SYSTEMS SPECIALIST [facility] LDL Cholesterol Calculated 135(H) <=100 mg/dL 06/24/2023 6:12 PM OPERATING SYSTEMS SPECIALIST [facility] Non HDL Cholesterol 169(H) <130 mg/dL 06/24/2023 6:12 PM OPERATING SYSTEMS SPECIALIST [facility] Patient Fasting > 8hrs? Yes 06/24/2023 6:12 PM OPERATING SYSTEMS SPECIALIST [facility] Blood BLOOD SPECIMEN / Unknown Venipuncture / Unknown 06/23/2023 3:28 PM OPERATING SYSTEMS SPECIALIST 06/23/2023 3:34 PM OPERATING SYSTEMS SPECIALIST Narrative [facility] - 06/24/2023 6:12 PM OPERATING SYSTEMS SPECIALIST Cholesterol Desirable: ??<200 mg/dL Triglycerides Normal: ??Less [...] BLOOD ORDER LENA [facility] [address] [facility], [address] [place], [place] [address], [place] [phone] * (ABNORMAL) Hemoglobin A1c (06/23/2023 3:28 PM OPERATING SYSTEMS SPECIALIST) Hemoglobin A1C 8.9(H) 0.0 - 5.6 % 06/23/2023 3:49 PM OPERATING SYSTEMS SPECIALIST [facility] Blood BLOOD SPECIMEN / Unknown Venipuncture / Unknown 06/23/2023 3:28 PM OPERATING SYSTEMS SPECIALIST 06/23/2023 3:34 PM OPERATING SYSTEMS SPECIALIST Narrative LABORATORY - 06/23/2023 3:49 PM OPERATING SYSTEMS SPECIALIST Results confirmed by repeat test. Dyan Fuentes MD LAB - BLOOD ORDER LENA LABORATORY [facility] [address] [place] [address] (no room number, 1st floor of [facility] [place] [address] [phone] * (ABNORMAL) BASIC METABOLIC PANEL (06/23/2023 3:28 PM OPERATING SYSTEMS SPECIALIST) Pathologist [facility] Sodium 139 135 - 145 mmol/L 06/24/2023 6:12 PM OPERATING SYSTEMS SPECIALIST [facility] Comment:Reference intervals for this test were updated on 04/05/2023 to more accurately reflect our healthy population. There may be differences in the flagging of prior results with similar values performed with this method. Interpretation of those prior results can be made in the context of the updated reference intervals. Potassium 4.5 3.4 - 5.3 mmol/L 06/24/2023 6:12 PM OPERATING SYSTEMS SPECIALIST [facility] Chloride 101 98 - 107 mmol/L 06/24/2023 6:12 PM OPERATING SYSTEMS SPECIALIST [facility] Carbon Dioxide (CO2) 27 22 - 29 mmol/L 06/24/2023 6:12 PM OPERATING SYSTEMS SPECIALIST [facility] Anion Gap 11 7 - 15 mmol/L 06/24/2023 6:12 PM OPERATING SYSTEMS SPECIALIST [facility] Urea Nitrogen 14.3 8.0 - 23.0 mg/dL 06/24/2023 6:12 PM OPERATING SYSTEMS SPECIALIST [facility] Creatinine 1.28(H) 0.51 - 0.95 mg/dL 06/24/2023 6:12 PM OPERATING SYSTEMS SPECIALIST [facility] GFR Estimate 47(L) >60 mL/min/1. 73m2 06/24/2023 6:12 PM OPERATING SYSTEMS SPECIALIST [facility] Calcium 9.9 8.8 - 10.2 mg/dL 06/24/2023 6:12 PM OPERATING SYSTEMS SPECIALIST [facility] Glucose 156(H) 70 - 99 mg/dL 06/24/2023 6:12 PM OPERATING SYSTEMS SPECIALIST [facility] Blood BLOOD SPECIMEN / Unknown Venipuncture / Unknown 06/23/2023 3:28 PM OPERATING SYSTEMS SPECIALIST 06/23/2023 3:34 PM OPERATING SYSTEMS SPECIALIST yDan Fuentes MD LAB - BLOOD ORDER LENA [facility] [address] [facility], [address] [id number] [phone] * (ABNORMAL) D dimer, quantitative (05/12/2023 2:50 [...] out pulmonary embolism: The ADJUST-PE Study. COLE 2014;311:7413-0388.; HJ Parker et al. Diagnostic accuracy of conventional or age adjusted D-dimer cutoff values in older patients with suspected venous thromboembolism. Systemic review and meta-analysis. BMJ 2013:346:f2492. Dyan Fuentes MD LAB - BLOOD ORDER LENA [facility] [address] Lab (no room number, 1st floor of clinic) [place] [address], [facility] [phone] * EKG 12-lead complete w/read - Clinics (performed today) (05/03/2023) Aubrey Jones MD ECG ORDERABLES from Last 3 Months Additional Health Concerns Problem Noted Date Diagnosed Date HbA1C Not In Goal 04/25/2023 Diabetes Self-Management Edu cation Needed to Optimize Self-Care Behaviors 04/25/2023 Advance Directives For more information, please contact: [phone] Latest Code Status on File Code Status [...] with patient/ legal decision maker Care Teams Banquet Line Cook Relationship Specialty [place] [address] [place] [address] PCP - General Family Medicine 05/18/22 Jovany Gonzalez MD [facility] [facility] [address] [facility] [address] [place] [address] Orthopedics 02/15/17 Staci Woodward VETERINARY VIROLOGIST [place] [address] [place], [place] [address] Nurse Practitioner Nurse Practitioner Psych/Mental Health 05/10/17 Reanna Smith, LAURA [place] [address] [place], [place] [address] Transformer Molder Dietitian, Registered 07/25/19 Roshni Nascimento, RN Personal Advocate & Liaison (PAL) Family Medicine 08/18/20 Kiet Swain MD [address] [facility] [address] [place] [address] Referring Physician Psychiatry 09/19/20 Winsome Pike APRN GEOPHYSICS PROFESSOR [address] [place], [place] [address] Nurse Practitioner Psychiatry 09/19/20 Tori Hines, [facility] [address] [place] [address] Coordinator Of Evaluation Coordinator Of Evaluation - Clinical 09/19/20 Miranda Queen, [facility] [address] [place] [address] Pharmacist Pharmacist 11/12/20 Marisel Armando MD [address] [place], [place] [address] Gastroenterology 02/05/21 Wesley Barrett MD [address] [facility] [address] [place] [address] Assigned Neuroscience Provider 05/10/21 [place] [address] [place] [address] Assigned PCP 05/15/22 Katiana Read MD [address] [facility] [address] [place], [place] [address] Assigned Endocrinology Provider 06/19/22 Mary Del Cid, RAFA[place] [address] [place] [address] Nurse Practitioner Nurse Practitioner 10/18/22 Elham Stack, [facility] [address] [place] [address] Pharmacist Pharmacist 10/19/22 Aubrey Jones MD [address] [place] [address] Cardiovascular Disease 03/28/23 Blanquita Morales Transformer Molder Diabetes Education 04/25/23 Aubrey Jones MD [address] [place] [address] Assigned Heart and Vascular Provider 05/07/23
--- OUTSIDE RECORDS SUMMARY | 2023-08-03 12:35 | XMS_ITS | Encounter Summary ---
Author Name Unknown Organization [facility] Address [address], [place] [address] Care Team Providers Care Research Advisor Name Role Phone Vahid Castillo MD Primary Care Provider Unava ilable Encounter Details Date Type Department Care Team Description 01/26/1995 Orders Only Erick Pham MD [address] [place], [place] [address] Social History Tobacco Use Types Packs/Day Years Used Date Smoking Tobacco: Never Assessed Sex and Gender Information Value Date Recorded Sex Assigned at Not on file Gender Identity Not on file Sexual Orientation Not on file documented as of this encounter Plan of Treatment Not on file documented as of this encounter Visit Diagnoses Not on filedocumented in this encounter Care Teams Research Advisor Relationship Specialty Start Date End Date Vahid Castillo MD PCP - General 06/06/11 documented as of this encounter
--- OUTSIDE RECORDS SUMMARY | 2023-08-03 12:36 | XMS_ITS | Encounter Summary ---
Author Name Unknown Organization [place] Address [address] [place] [address]. [place] [address] Care Team Providers Care Fiction Writer Name Role Phone Jovany Gonzalez MD Unavailable CrissyStaci jeong [facility] Unavailable [phone] Unavailable [phone] Roshni Nascimento RN Unavailable Unavailable Kiet Swain MD Unavailable [phone] Winsome Pike APRN AIRPORT RAMP AGENT Unavailable [phone] Tori Hines [facility] Unavailable Miranda Queen [facility] Unavailable Unavailable Marisel Armando MD Unavailable Wesley Barrett MD Unavailable [phone] Dyan Fuentes MD Primary Care Provider [phone] Dyan Fuentes MD Unavailable [phone] Katiana Read MD Unavailable [phone] Mary Del Cid [employer] Unavailable + [phone] Elham Stack [facility] Unavailable [phone] Aubrey Jones MD Unavailable [phone] Blanquita Morales Unavailable Unavailable Aubrey Jones MD Unavailable [phone] Encounter Details Date Type Department Care Team (Late st Contact Info) Description 07/25/2023 MyC Medical Advice [facility] [address] [place] [id number] Roshni Nascimento, RN Social History Tobacco [...] How often do you attend catholic or congregational serv ices? Never 06/20/2023 Do you belong [...] Answer Date Recorded PHQ-2 Score 1 06/23/2023 [facility] [place] of Occupat ional Health - Occupational Stress [...] st Contact Info) Description 08/18/2023 3:00 PM ACUTE CARE REGISTERED NURSE Office Visit [place] [address] [place] [address] Katiana Read MD [address] [place] [address] documented as of this encounter Goals Goal [...] Total Score: 7 06/23/20 23 1:54 PM ACUTE CARE REGISTERED NURSE documented as of this encounter Care Teams Fiction Writer Relationship Specialty [place] [address] [place] [address] PCP - General Family Medicine 05/18/22 Jovany Gonzalez MD [facility] [address] [facility] [address] [place], [place] [address] Orthopedics 02/15/17 Staci Woodward, [facility] [place] [address] [place], [place] [id number] Nurse Practitioner Nurse Practitioner Psych/Mental Health 05/10/17 Reanna Smith, RD [facility] [address] [place], [place] [address] Receiving Lead Dietitian, Registered 07/25/19 Roshni Nascimento, RN Personal Advocate & Liaison (PAL) Family Medicine 08/18/20 Kiet Swain MD [address] [place] [id number] Referring Physician Psychiatry 09/19/20 Winsome Pike APRN AIRPORT RAMP AGENT [facility] [place] [address] [address] Nurse Practitioner Psychiatry 09/19/20 Tori Hines, [facility] [address] [place] [address] Coronary Care Unit Nurse Coronary Care Unit Nurse - Clinical 09/19/20 Miranda Queen [facility] [address] [place] [address] Pharmacist Pharmacist 11/12/20 Marisel Armando MD [address] [place] [address] Gastroenterology 02/05/21 Wesley Barrett MD [address] [facility] [address] [place] [address] Assigned Neuroscience Provider 05/10/21 [place] [address] [place] [address] Assigned PCP 05/15/22 Katiana Read MD [address] [place] [address] Assigned Endocrinology Provider 06/19/22 [place] [address] [place] [address] Nurse Practitioner Nurse Practitioner 10/18/22 Elham tSack, [facility] [address] [place] [address] Pharmacist Pharmacist 10/19/22 Aubrey Jones MD [address] [place] [address] Cardiovascular Disease 03/28/23 Blanquita Morales Receiving Lead Diabetes Education 04/25/23 Aubrey Jones MD [address] [place] [address] Assigned Heart and Vascular Provider 05/07/23 documented as of this encounter
--- OUTSIDE RECORDS SUMMARY | 2023-08-03 12:36 | XMS_ITS | Encounter Summary ---
Author Name Unknown Organization [place] Address [address] [place] [address]. [place] [address] Care Team Providers Care Network Support Engineer Name Role Phone Jovany Gonzalez MD Unavailable CrissyStaci jeong [facility] Unavailable [phone] Unavailable [phone] Roshni Nascimento RN Unavailable Unavailable Kiet Swain MD Unavailable [phone] Winsome Pike APRN CHIEF ULTRASOUND TECHNOLOGIST Unavailable [phone] Tori Hines [facility] Unavailable Miranda Queen [facility] Unavailable Unavailable Marisel Armando MD Unavailable Wesley Barrett MD Unavailable [phone] Dyan Fuentes MD Primary Care Provider [phone] Dyan Fuentes MD Unavailable [phone] Katiana Read MD Unavailable [phone] Mary Del Cid [facility] Unavailable + [phone] Elham Stack [facility] Unavailable [phone] Aubrey Jones MD Unavailable [phone] Blanquita Morales Unavailable Unavailable Aubrey Jones MD Unavailable [phone] Reason for Visit * Reason Onset Date Comments Panel Management 07/26/2023 Encounter Details Date Type Department Care Team (Late st Contact Info) Description 07/26/2023 Telephone [facility] [address] [place] [address] [place] [address] [place] [address] Panel Management Social History Tobacco [...] week 06/20/2023 How often do you attend worship or tenriism serv ices? Never 06/20/2023 Do you belong [...] Answer Date Recorded PHQ-2 Score 1 06/23/2023 [facility] Occupat ional Health - Occupational [...] Panchito Bustamante CMA Chart routed to none. NET ARCHITECT documented in this encounter Plan of Treatment Upcoming Encounters Date Type Department Care Team (Late st Contact Info) Description 08/18/2023 3:00 PM FILENET ARCHITECT Office Visit [facility] [address] [facility] [address] [place] [address] Katiana Read MD [address] [place] [address] documented as of this encounter Goals Goal Patient Goal Type Associated Problems Recent Progress Patient-Stated? Author Establish Regular Follow-Ups with PCP Care Plan HbA1C Not In Goal Blanquita Stuart Get HbA1C Level in Goal Care Plan HbA1C Not In Goal No Blanquita Morales Understand diabetes pathophysiology and disease progression Care Plan Diabetes Self-Managemen t Education Needed to Optimize Self-Care Behaviors No Blanquita Mroales Healthy Eating - follow a healthy eating [...] Total Score: 7 06/23/20 23 1:54 PM FILENET ARCHITECT documented as of this encounter Care Teams Network Support Engineer Relationship Specialty [place] [address] [place] [address] PCP - General Family Medicine 05/18/22 Jovany Gonzalez MD [facility] [address] [facility] [address] [place] [address] Orthopedics 02/15/17 Staci Woodward [facility] [place] [address] [place], [place] [address] Nurse Practitioner Nurse Practitioner Psych/Mental Health 05/10/[address] [place] [address] [place], [place] [address] Seam Steamer Dietitian, Registered 07/25/19 Roshni Nascimento RN Personal Advocate & Liaison (PAL) Family Medicine 08/18/20 Kiet Swain MD [address] [facility] [address] [place] [address] Referring Physician Psychiatry 09/19/20 Winsome Pike APRN CNP [address] [place] [address] Nurse Practitioner Psychiatry 09/19/20 Tori Hines, [facility] [address] [place] [address] Cage Maker Machine Cage Maker Machine - Clinical 09/19/20 Miranda Queen [facility] [address] [place] [address] Pharmacist Pharmacist 11/12/20 Marisel Armando MD [address] [place], [place] [address] Gastroenterology 02/05/21 Wesley Barrett MD [address] [facility] [place], [place] [address] Assigned Neuroscience Provider 05/10/21 [place] [address] [place] [address] Assigned PCP 05/15/22 Katiana Read MD [address] [facility] [address] [place], [place] [address] Assigned Endocrinology Provider 06/19/22 [place] [address] [place] [address] Nurse Practitioner Nurse Practitioner 10/18/22 Elham Stack, [facility] [address] [place] [address] Pharmacist Pharmacist 10/19/22 Aubrey Jones MD [address] [place] [address] Cardiovascular Disease 03/28/23 Blanquita Morales Seam Steamer Diabetes Education 04/25/23 Aubrey Jones MD [address] [place] [id number] Assigned Heart and Vascular Provider 05/07/23 documented as of this encounter
--- OUTSIDE RECORDS SUMMARY | 2023-08-03 12:36 | XMS_ITS | Referral Summary ---
Author Name Unknown Organization [place] Address [address] [place] [address]. [place] [address] Care Team Providers Care Scientific Publications Editor Name Role Phone Jovany Gonzalez MD Unavailable CrissyStaci jeong NP Unavailable [phone] Unavailable [phone] Roshni Nascimento RN Unavailable Unavailable Kiet Swain MD Unavailable [phone] Winsome Pike APRN SIGN BOARD ERECTOR Unavailable [phone] Tori Hines [facility] Unavailable Miranda Queen [facility] Unavailable Unavailable Marisel Armando MD Unavailable Wesley Barrett MD Unavailable [phone] Dyan Fuentes MD Primary Care Provider [phone] Dyan Fuentes MD Unavailable [phone] Katiana Read MD Unavailable [phone] Mary Del Cid DEVOPS Unavailable + [phone] Elham Stack [facility] Unavailable [phone] Aubrey Jones MD Unavailable [phone] Blanquita Morales Unavailable Unavailable Aubrey Jones MD Unavailable [phone] Encounters Date Type Department Care Team Description 08/02/2023 Telephone [facility] [place] [id number] [place] [address] [address] [place] [address] Mary Del Cid NP Medication Request 08/01/2023 Travel 08/01/2023 2:00 PM GEODETIC TECHNICIAN Office Visit [facility] [id number] [place] [phone] Haydee Moody NP Preop general physical exam (Primary Dx); Need for shingles vaccine; Benign essential hypertension; Chronic obstructive pulmonary disease, unspecified COPD type (H); Morbid obesity (H); Hypertriglyceridemia; Hypothyroidism, unspecified type; Chronic kidney disease, stage 3a (H); Uncomplicated opioid dependence (H); Type 1 diabetes mellitus with other specified complication (H) 07/26/2023 Telephone [facility] [address] [place] [phone] Dyan Fuentes MD Panel Management 07/25/2023 MyC Medical Advice [facility] [address] [place] [phone] Roshni Nascimento RN 07/21/2023 Refill [facility] [address] [facility] [address] [place] [phone] Katiana Read MD Medication Refill 07/19/2023 3:00 PM GEODETIC TECHNICIAN Virtual Visit [facility] [address] [place] [address] Mary Del Cid NP Chronic pain syndrome (Primary Dx); S/P lumbar laminectomy; S/P cervical spinal fusion; Muscle spasm 07/18/2023 Telephone [facility] [address] [facility] [address] [place] [address] Mary Del Cid NP Opioid Refill (buprenorphine HCl-naloxone HCl (SUBOXONE) 4-1 MG per film ) 07/14/[address] [facility] [address] [place] [address] [place] [phone] Lenka Parks PA-C Postprocedural hypothyroidism 07/13/2023 Telephone [facility] [address] [place] [phone] Katiana Read MD 07/12/2023 MyC Medical Advice [facility] [address] [facility] 1st [place] [address] Chidi Zabala 07/12/2023 MyC Medical Advice [facility] [address] [place] [address] Rachelle Benites CMA MyChart Communication 07/12/2023 Travel 07/12/2023 10:30 AM GEODETIC TECHNICIAN Office Visit [facility] [address] [place] [phone] Lenka Parks PA-C Type 2 diabetes mellitus without complication, without long-term current use of insulin (H) (Primary Dx); Chronic kidney disease, stage 3a (H); Postablative hypothyroidism; Type 2 diabetes mellitus without complication, with long-term current use of insulin (H); Type 1 diabetes mellitus with diabetic neuropathy (H) 07/11/2023 Travel 06/23/2023 Travel 06/23/2023 2:30 PM GEODETIC TECHNICIAN Office Visit [address] [phone] Dyan Fuentes MD Routine general medical examination at a health care facility (Primary Dx); Medicare annual wellness visit, subsequent; Need for vaccination against respiratory syncytial virus; Benign essential hypertension; Chronic obstructive pulmonary disease, unspecified COPD type (H); Type 2 diabetes mellitus without complication, with long-term current use of insulin (H); Other chronic pain; Postablative hypothyroidism; Hyperlipidemia LDL goal <100 06/20/2023 Travel 06/20/2023 Refill [facility] [place] [address] [facility] [address] [place] [address] Mary Del Cid NP Opioid Refill (buprenorphine HCl-naloxone HCl (SUBOXONE) 4-1 MG per film) 05/31/2023 Travel 05/31/2023 4:00 PM GEODETIC TECHNICIAN Therapy Visit [address] [address] Dyan Villar, PT Chronic pain syndrome (Primary Dx) 05/27/[address] [address] Dyan Fuentes MD Progress 05/17/2023 Refill [facility] [address] [address] Mary Del Cid NP Opioid Refill (buprenorphine HCl-naloxone HCl (SUBOXONE) 4-1 MG per film) 05/12/2023 Travel 05/12/2023 2:30 PM CDT Office Visit [address] [phone] Dyan Fuentes MD Chronic obstructive pulmonary disease, unspecified COPD type (H) (Primary Dx); Tobacco use disorder; Benign essential hypertension; Type 2 diabetes mellitus without complication, with long-term current use of insulin (H); Vitamin B12 deficiency; Hypertriglyceridemia; Gastroesophageal reflux disease without esophagitis; Hyperlipidemia LDL goal <100; Abdominal pain, generalized; Elevated d-dimer 05/11/2023 Travel 05/11/2023 3:40 PM CDT Therapy Visit [address] [address] Mary Del Cid, Dyan Yee, MIGDALIA Chronic pain syndrome (Primary Dx) 05/03/[address] [phone] Dyan Fuentes MD 05/03/2023 Travel 05/03/2023 10:30 AM CDT Office Visit [facility] [address] [facility] [address] [place] [address] Aubrey Jones MD Abnormal electrocardiogram [...] 1 06/14/20 22 Active Continuous Blood Gluc Commercial Appraiser (DEXCOM G[address] PRODUCTION) DEVIIndications:T ype 2 diabetes mellitus without complication, [...] 4 times daily 0 Active nystatin (MYCOSTATIN) 676192 UNIT/GM external ointment Apply topically 2 times [...] nasal sprayIndications: At risk for substance overdose [place] 1 spray (4 mg) into one nostril [...] week 06/20/2023 How often do you attend adventism or uatsdin serv ices? Never 06/20/2023 Do [...] Answer Date Recorded PHQ-2 Score 2 08/01/2023 [facility] [place] [facility]ational [facility] Questionnaire Answer [...] Comments Blood Pressure 119/82 08/01/2023 1:22 PM GEODETIC TECHNICIAN Pulse 70 08/01/2023 1:22 PM GEODETIC TECHNICIAN Temperature 36.6 ??C (97.8 ??F) 08/01/2023 1:22 PM CS T Respiratory Rate 20 08/01/2023 1:22 PM GEODETIC TECHNICIAN Oxygen Saturation 96% 08/01/2023 1:22 PM GEODETIC TECHNICIAN Inhaled Oxygen Concentration - - Weight 115.7 kg (255 lb) 08/01/2023 1:22 PM GEODETIC TECHNICIAN Height 172.7 cm (5' 8) 08/01/2023 1:22 PM GEODETIC TECHNICIAN Body Mass Index 38.77 08/01/2023 1:22 PM GEODETIC TECHNICIAN Plan of Treatment Upcoming Encounters Date Type Department Care Team (Late st Contact Info) Description 08/18/2023 3:00 PM GEODETIC TECHNICIAN Office Visit [facility] [address] [facility] [address] [place] [address] Katiana Read MD [address] [place] [address] Goals Goal Patient Goal Type Associated Problems [...] Blanquita Morales Medical Devices Implanted Type Area Women'S Soccer Coach Device Identifier Shelf Expiration Date Model / Serial / Lot Bone Matrix 5cc Bio4 [id number] - [id number] Implanted:Qty: 1 on 12/13/2017 Bone/Tissu e/Biologic Right: Ankle [employer] 01/18/2019 [id number] / [id number] / [id number] Graft Bone Putty Dbx 01ml [id number] - [id number] Implanted:Qty: 1 on 05/18/2021 by Wesley Barrett MD at [facility] Bone/Tissu e/Biologic N/A: Spine Cervical [employer] 11/19/2022 [id number] / / [id number] [place] Iconix 2.3mm With 2.0mm Braid Implanted:Qty: 1 on 12/13/2017 Metallic Hardware/A nchor Right: Ankle [employer] 07/02/2019 [id number]- [id number] / / [id number] 6.5mm Low Profile Hex Scr 20mm Implanted:Qty: 1 on 08/06/2020 by Lencho Mayo MD at [facility] Metallic Hardware/A nchor Right: Hip [employer] 08/18/2024 [id number] / / [id number] 4.[address] Screw Implanted:Qty: 1 on 05/18/2021 by Wesley Barrett MD at [facility] Metallic Hardware/A nchor N/A: Spine Cervical [employer] [id number] / / [id number] 2020 Imp Head Femoral Strk Biolox Delta Ceramic V40 36mm Implanted:Qty: 1 on 08/06/2020 by Lencho Mayo MD at [facility] Total Joint Component/ Insert Right: Hip [employer] 04/10/2025 [id number] 6 / / [id number] Power Port Trident Ii Tritanium, Clusterhole Acetabular Shell, Janeth 50mm Implanted:Qty: 1 on 08/06/2020 by Lencho Mayo MD at [facility] Right: Hip [employer] 03/15/2023 702-04-50 D / / [id number] Endoskeleton Tc Interbody System Medium 16mmx 14mm X 7mm- 6 Degree Implanted:Qty: 1 on 05/18/2021 by Wesley Barrett MD at [facility] N/A: Spine Cervical [employer] 02/05/2026 [id number] -[id number] / / [id number] Explanted Type Area Women'S Soccer Coach Device Identifier Shelf Expiration Date Model / Serial / Lot 3.[address] Screw Explanted:Qty : 1 on 05/18/2021 by Wesley Barrett MD at [facility] Metallic Hardware/Anc hor N/A: Spine Cervical [employer] [id number] / / [id number] 2020 Port-2/ 8 Implanted:Qty : 1 on 08/31/2017 by Ace Valles MD Explanted:Qty : 1 on 08/12/2020 by Ace Valles MD Port Right: Vein BARD 04/09/2018 REF [id number] / / [id number] Procedures Procedure Name Priority Date/Time Associated Diagnosis Comments T4 FREE Routine 07/12/2023 11:07 AM GEODETIC TECHNICIAN Postablative hypothyroidism TSH Routine 07/12/2023 11:07 AM GEODETIC TECHNICIAN Postablative hypothyroidism LIPID REFLEX TO DIRECT LDL PANEL Routine 06/23/2023 3:28 PM GEODETIC TECHNICIAN Hyperlipidemia LDL goal <100 ALBUMIN RANDOM URINE QUANTITATIVE Routine 06/23/2023 3:28 PM GEODETIC TECHNICIAN Type 2 diabetes mellitus without complication, with long-term current use of insulin (H) URINE DRUG SCREEN CLINIC Routine 06/23/2023 3:28 PM GEODETIC TECHNICIAN Other chronic pain HEMOGLOBIN A1C Routine 06/23/2023 3:28 PM GEODETIC TECHNICIAN Type 2 diabetes mellitus without complication, with long-term current use of insulin (H) BASIC METABOLIC PANEL Routine 06/23/2023 3:28 PM GEODETIC TECHNICIAN Benign essential hypertension D DIMER QUANTITATIVE Routine 05/12/2023 2:50 PM CDT Elevated d-dimer EKG 12-LEAD COMPLETE W/READ - CLINICS Routine 05/03/2023 Abnormal electrocardiogram from Last 3 Months Results * (ABNORMAL) TSH (07/12/2023 11:07 AM GEODETIC TECHNICIAN) Pathologist [facility] TSH 74.10(H) 0.30 - 4.20 uIU/mL 07/12/2023 10:35 PM GEODETIC TECHNICIAN [facility] Blood BLOOD SPECIMEN / Unknown Venipuncture / Unknown 07/12/2023 11:07 AM GEODETIC TECHNICIAN 07/12/2023 11:07 AM GEODETIC TECHNICIAN Lenka Parks PA-C LAB - BLOOD ORDERABL ES [facility] [place] [facility] [address] [facility] [address] [facility], [address] [place] [address], [facility] [phone] * (ABNORMAL) T4, free (07/12/2023 11:07 AM GEODETIC TECHNICIAN) Free T4 0.53(L) 0.90 - 1.70 ng/dL 07/12/2023 10:35 PM GEODETIC TECHNICIAN [facility] Blood BLOOD SPECIMEN / Unknown Venipuncture / Unknown 07/12/2023 11:07 AM GEODETIC TECHNICIAN 07/12/2023 11:07 AM GEODETIC TECHNICIAN Lenka Parks PA-C LAB - BLOOD ORDERABL ES [facility] [place] [facility] [address] [facility] [address] Building, [address] [place] [address], [facility] [phone] * (ABNORMAL) Drug Abuse Screen Panel 13, Urine (Pain Care Map) - lab collect (06/23/2023 3:28 PM GEODETIC TECHNICIAN) Cannabinoids (67-kae-8-carboxy -9-THC) Detected(A ) Not Detected, Indeterminate 06/24/2023 2:08 PM GEODETIC TECHNICIAN [facility] Comment: Cutoff for a positive cannabinoid is greater than 50 ng/ml. This is an unconfirmed screening result to be used for medical purposes only. Phencyclidine Not Detected Not Detected, Indeterminate 06/24/2023 2:08 PM GEODETIC TECHNICIAN [facility] Comment:Cutoff for a negativ e PCP is 25 ng/mL or less. Cocaine (Benzoylecgonine) Not Detected Not Detected, Indeterminate 06/24/2023 2:08 PM GEODETIC TECHNICIAN [facility] Comment:Cutoff for a negativ e cocaine is 150 ng/ml or less. Methamphetamine (d-Methamphetamin e) Not Detected Not Detected, Indeterminate 06/24/2023 2:08 PM GEODETIC TECHNICIAN [facility] Comment:Cutoff for a negativ e methamphetamine is 500 ng/ml or less. Opiates (Morphine) Not Detected Not Detected, Indeterminate 06/24/2023 2:08 PM GEODETIC TECHNICIAN [facility] Comment:Cutoff for a negativ e opiate is 100 ng/ml or less. Amphetamine (d-Amphetamine) Not Detected Not Detected, Indeterminate 06/24/2023 2:08 PM GEODETIC TECHNICIAN [facility] Comment:Cutoff for a negativ e amphetamine is 500 ng/mL or less. Benzodiazepines (Nordiazepam) Not Detected Not Detected, Indeterminate 06/24/2023 2:08 PM GEODETIC TECHNICIAN [facility] Comment:Cutoff for a negativ e benzodiazepine is 150 ng/ml or less. Tricyclic Antidepressants (Desipramine) Not Detected Not Detected, Indeterminate 06/24/2023 2:08 PM GEODETIC TECHNICIAN [facility] Comment:Cutoff for a negativ e tricyclic antidepressant is 300 ng/ml or less. Methadone Not Detected Not Detected, Indeterminate 06/24/2023 2:08 PM GEODETIC TECHNICIAN [facility] Comment:Cutoff for a negativ e methadone is 200 ng/ml or less. Barbiturates (Butalbital) Not Detected Not Detected, Indeterminate 06/24/2023 2:08 PM GEODETIC TECHNICIAN [facility] Comment:Cutoff for a negativ e barbituate is 200 ng/ml or less. Oxycodone Not Detected Not Detected, Indeterminate 06/24/2023 2:08 PM GEODETIC TECHNICIAN [facility] Comment:Cutoff for a negativ e oxycodone is 100 ng/mL or less. Buprenorphine Detected(A ) Not Detected, Indeterminate 06/24/2023 2:08 PM GEODETIC TECHNICIAN [facility] Comment: Cutoff for a positive buprenorphine is greater than 10 ng/ml. This is an unconfirmed screening result to be used for medical purposes only. Urine MID-STREAM URINE SPECIMEN / Unknown Non-blood Collection / Unknown 06/23/2023 3:28 PM GEODETIC TECHNICIAN 06/23/2023 3:34 PM GEODETIC TECHNICIAN Dyan Fuentes MD LAB - URINE ORDER LENA [facility] [address] Lab (no room number, 1st floor of clinic) [place] [address], [facility] [phone] * Albumin Random Urine Quantitative with Creat Ratio (06/23/2023 3:28 PM GEODETIC TECHNICIAN) Creatinine Urine mg/dL 42.4 mg/dL 06/24/2023 6:21 PM GEODETIC TECHNICIAN [facility] Comment:The reference ranges have not been established in urine creatinine. The results should be integrated into the clinical context for interpretation. Albumin Urine mg/L <12.0 mg/L 2022 6:21 PM GEODETIC TECHNICIAN [facility] Comment:The reference ranges have not been established in urine albumin. The results should be integrated into the clinical context for interpretation. Albumin Urine mg/g Cr 06/24/2023 6:21 PM GEODETIC TECHNICIAN [facility] Comment: Unable to calculate, urine [...] control, and institution of therapy with an dqhrculwywj-zoefynpufv-mtagsl (MACK) inhibitor (if the patient can tolerate it). ?? Urine MID-STREAM URINE SPECIMEN / Unknown Non-blood Collection / Unknown 06/23/2023 3:28 PM GEODETIC TECHNICIAN 06/23/2023 3:34 PM GEODETIC TECHNICIAN Dyan Fuentes MD LAB - URINE ORDER LENA [facility] [place] [facility] [address] [facility], [address] [address], [facility] [phone] * (ABNORMAL) Lipid panel reflex to direct LDL Fasting (06/23/2023 3:28 PM GEODETIC TECHNICIAN) Cholesterol 244(H) <200 mg/dL 06/24/2023 6:12 PM GEODETIC TECHNICIAN [facility] Triglycerides 168(H) <150 mg/dL 06/24/2023 6:12 PM GEODETIC TECHNICIAN [facility] Direct Measure HDL 75 >=50 mg/dL 06/24/2023 6:12 PM GEODETIC TECHNICIAN [facility] LDL Cholesterol Calculated 135(H) <=100 mg/dL 06/24/2023 6:12 PM GEODETIC TECHNICIAN [facility] Non HDL Cholesterol 169(H) <130 mg/dL 06/24/2023 6:12 PM GEODETIC TECHNICIAN [facility] Patient Fasting > 8hrs? Yes 06/24/2023 6:12 PM GEODETIC TECHNICIAN [facility] Blood BLOOD SPECIMEN / Unknown Venipuncture / Unknown 06/23/2023 3:28 PM GEODETIC TECHNICIAN 06/23/2023 3:34 PM GEODETIC TECHNICIAN Narrative [facility] - 06/24/2023 6:12 PM GEODETIC TECHNICIAN Cholesterol Desirable: ??<200 mg/dL Triglycerides Normal: ??Less [...] MD LAB - BLOOD ORDER LENA LABORATORY [facility] Lab [address] [facility], [address] [address] [phone] * (ABNORMAL) Hemoglobin A1c (06/23/2023 3:28 PM GEODETIC TECHNICIAN) Hemoglobin A1C 8.9(H) 0.0 - 5.6 % 06/23/2023 3:49 PM GEODETIC TECHNICIAN LABORATORY Blood BLOOD SPECIMEN / Unknown Venipuncture / Unknown 06/23/2023 3:28 PM GEODETIC TECHNICIAN 06/23/2023 3:34 PM GEODETIC TECHNICIAN Narrative LABORATORY - 06/23/2023 3:49 PM GEODETIC TECHNICIAN Results confirmed by repeat test. Dyan Fuentes MD LAB - BLOOD ORDER LENA LABORATORY [facility] [address] Lab (no room number, 1st floor of clinic) [place] [address], [facility] [phone] * (ABNORMAL) BASIC METABOLIC PANEL (06/23/2023 3:28 PM GEODETIC TECHNICIAN) Sodium 139 135 - 145 mmol/L 06/24/2023 6:12 PM GEODETIC TECHNICIAN [facility] Comment:Reference intervals for this test were updated on 04/05/2023 to more accurately reflect our healthy population. There may be differences in the flagging of prior results with similar values performed with this method. Interpretation of those prior results can be made in the context of the updated reference intervals. Potassium 4.5 3.4 - 5.3 mmol/L 06/24/2023 6:12 PM GEODETIC TECHNICIAN [facility] Chloride 101 98 - 107 mmol/L 06/24/2023 6:12 PM GEODETIC TECHNICIAN [facility] Carbon Dioxide (CO2) 27 22 - 29 mmol/L 06/24/2023 6:12 PM GEODETIC TECHNICIAN [facility] Anion Gap 11 7 - 15 mmol/L 06/24/2023 6:12 PM GEODETIC TECHNICIAN [facility] Urea Nitrogen 14.3 8.0 - 23.0 mg/dL 06/24/2023 6:12 PM GEODETIC TECHNICIAN [facility] Creatinine 1.28(H) 0.51 - 0.95 mg/dL 06/24/2023 6:12 PM GEODETIC TECHNICIAN [facility] GFR Estimate 47(L) >60 mL/min/1. 73m2 06/24/2023 6:12 PM GEODETIC TECHNICIAN [facility] Calcium 9.9 8.8 - 10.2 mg/dL 06/24/2023 6:12 PM GEODETIC TECHNICIAN [facility] Glucose 156(H) 70 - 99 mg/dL 06/24/2023 6:12 PM GEODETIC TECHNICIAN [facility] Blood BLOOD SPECIMEN / Unknown Venipuncture / Unknown 06/23/2023 3:28 PM GEODETIC TECHNICIAN 06/23/2023 3:34 PM GEODETIC TECHNICIAN Dyan Fuentes MD LAB - BLOOD ORDER LENA [facility] [place] [facility] [address] [facility] [address] [facility], [address] [place] [address], [place] [phone] * (ABNORMAL) D dimer, quantitative (05/12/2023 2:50 [...] out pulmonary embolism: The ADJUST-PE Study. COLE 2014;311:1242-4978.; HJ Parker et al. Diagnostic accuracy of conventional or age adjusted D-dimer cutoff values in older patients with suspected venous thromboembolism. Systemic review and meta-analysis. BMJ 2013:346:f2492. Dyan Fuentes MD LAB - BLOOD ORDER LENA [facility] [address] Lab (no room number, 1st floor of clinic) [place] [address], [facility] [phone] * EKG 12-lead complete w/read - Clinics (performed today) (05/03/2023) Aubrey Jones MD ECG ORDERABLES from Last 3 Months Additional Health Concerns Problem Noted Date Diagnosed Date HbA1C Not In Goal 04/25/2023 Diabetes Self-Management Edu cation Needed to Optimize Self-Care Behaviors 04/25/2023 Advance Directives For more information, please contact: [phone] Latest Code Status on File Code Status [...] with patient/ legal decision maker Care Teams Scientific Publications Editor Relationship Specialty [place] [address] [place] [address] PCP - General Family Medicine 05/18/22 Jovany Gonzalez MD [facility] [address] [facility] [address] [place], [place] [address] Orthopedics 02/15/17 Staci Woodward NP [place] [address] [place], [place] [address] Nurse Practitioner Nurse Practitioner Psych/Mental Health 05/10/17 Reanna Smith, [facility] [address] [place], [place] [address] Folded Cloth Taper Dietitian, Registered 07/25/19 Roshni Nascimento RN Personal Advocate & Liaison (PAL) Family Medicine 08/18/20 Kiet Swain MD [address] [facility] [address] [place], [place] [address] Referring Physician Psychiatry 09/19/20 Winsome Pike APRN SIGN BOARD ERECTOR [address] [place] [address] Nurse Practitioner Psychiatry 09/19/20 Tori Hines, [facility] [address] [place] [address] Project Asst Project Asst - Clinical 09/19/20 Miranda Queen [facility] [address] [place] [address] Pharmacist Pharmacist 11/12/20 Marisel Armando MD [address] [place], [place] [address] Gastroenterology 02/05/21 Wesley Barrett MD [address] [facility] [address] [place], [place] [address] Assigned Neuroscience Provider 05/10/21 [place] [address] [place] [address] Assigned PCP 05/15/22 Katiana Read MD [address] [address] Assigned Endocrinology Provider 06/19/22 Mary Del Cid, [facility] [address] [place] [address] Nurse Practitioner Nurse Practitioner 10/18/22 Elham Stack [facility] [address] [place] [address] Pharmacist Pharmacist 10/19/22 Aubrey Jones MD [address] [place] [address] Cardiovascular Disease 03/28/23 Blanquita Morales Folded Cloth Taper Diabetes Education 04/25/23 Aubrey Jones MD [address] [place] [address] Assigned Heart and Vascular Provider 05/07/23
--- OUTSIDE RECORDS SUMMARY | 2023-08-03 12:36 | XMS_ITS | Encounter Summary ---
Author Name Unknown Organization [facility] Address [address] [place] [address]. [place] [address] Care Team Providers Care Used Building Materials Yard Worker Name Role Phone Jovany Gonzalez MD Unavailable CrissyStaci jeong SYSTEMS DESIGNER Unavailable [phone] Unavailable [phone] Roshni Nascimento RN Unavailable Unavailable Kiet Swain MD Unavailable [phone] Winsome Pike APRN PAPER STRIPPER Unavailable +[phone] Tori Hines [facility] Unavailable Miranda Queen [facility] Unavailable Unavailable Marisel Armando MD Unavailable Wesley Barrett MD Unavailable [phone] Dyan Fuentes MD Primary Care Provider [phone] Dyan Fuentes MD Unavailable [phone] Katiana Read MD Unavailable [phone] Mary Del Cid SYSTEMS DESIGNER Unavailable + [phone] Elham Stack [facility] Unavailable [phone] Aubrey Jones MD Unavailable [phone] Blanquita Morales Unavailable Unavailable Aubrey Jones MD Unavailable [phone] Encounter Details Date Type Department Care Team [...] How often do you attend uatsdin or alevism serv ices? Never 06/20/2023 Do you belong [...] Answer Date Recorded PHQ-2 Score 2 08/01/2023 [facility] of Occupat ional Health - [...] st Contact Info) Description 08/18/2023 3:00 PM RELIEF COOK Office Visit [facility] [address] [place] [address] Katiana Read MD [address] [place] [address] documented as of this encounter Goals Goal [...] Total Score: 8 08/01/19 24 1:11 PM RELIEF COOK documented as of this encounter Care Teams Used Building Materials Yard Worker Relationship Specialty [place] [address] [place] [address] PCP - General Family Medicine 05/18/22 Jovany Gonzalez MD [facility] [address] [facility] [address] [place], [place] [address] Orthopedics 02/15/17 Staci Woodward, SYSTEMS DESIGNER [place] [address] [place], [place] [address] Nurse Practitioner Nurse Practitioner Psych/Mental Health 05/10/17 Reanna Smith, RD [place] [address] [place] [address] Paper Winder Dietitian, Registered 07/25/19 Roshni Nascimento, ZITA Personal Advocate & Liaison (PAL) Family Medicine 08/18/20 Kiet Swain MD [address] [place] [address] Referring Physician Psychiatry 09/19/20 Winsome Pike APRN PAPER STRIPPER [address] [place] [id number] Nurse Practitioner Psychiatry 09/19/20 Tori Hines, [facility] [place], [place] [address] Cardiac Monitor Technician Cardiac Monitor Technician - Clinical 09/19/20 Miranda Queen [facility] [address] [place] [address] Pharmacist Pharmacist 11/12/20 Marisel Armando MD [address] [place], [place] [id number] Gastroenterology 02/05/21 Wesley Barrett MD [address] [facility] [address] [place] [address] Assigned Neuroscience Provider 05/10/21 [place] [address] [place] [address] Assigned PCP 05/15/22 Katiana Read MD [address] [place], [place] [address] Assigned Endocrinology Provider 06/19/22 [place] [address] [place] [address] Nurse Practitioner Nurse Practitioner 10/18/22 Elham Stack, [facility] [address] [place] [address] Pharmacist Pharmacist 10/19/22 Aubrey Jones MD [address] [place] [address] Cardiovascular Disease 03/28/23 Blanquita Morales Paper Winder Diabetes Education 04/25/23 Aubrey Jones MD [address] [place] [address] Assigned Heart and Vascular Provider 05/07/23 documented as of this encounter
--- OUTSIDE RECORDS SUMMARY | 2023-08-03 12:36 | XMS_ITS | Encounter Summary ---
Author Name Unknown Organization [facility] Address [address] [place] [address]. [place] [address] Care Team Providers Care Wafer Batter Mixer Name Role Phone Jovany Gonzalez MD Unavailable CrissyStaci jeong MACHINE FILLER SERVICER Unavailable [phone] Unavailable [phone] Roshni Nascimento RN Unavailable Unavailable Kiet Swain MD Unavailable [phone] Winsome Pike APRN PHOTOENGRAVING APPRENTICE Unavailable [phone] Tori Hines [facility] Unavailable Miranda Queen [facility] Unavailable Unavailable Marisel Armando MD Unavailable Wesley Barrett MD Unavailable [phone] Dyan Fuentes MD Primary Care Provider [phone] Dyan Fuentes MD Unavailable [phone] Katiana Read MD Unavailable [phone] Mary Del Cid MACHINE FILLER SERVICER Unavailable + [phone] Elham Stack [facility] Unavailable [phone] Aubrey Jones MD Unavailable [phone] Blanquita Morales Unavailable Unavailable Aubrey Jones MD Unavailable [phone] Reason for Visit * Reason Comments Pain Encounter Details Date Type Department Care Team (Late st Contact Info) Description 07/19/2023 3:00 PM CERTIFIED EMERGENCY VEHICLE TECHNICIAN Virtual Visit [facility] [place] [address] [place] [address] [place], [place] [address] [place] [address] [place] [address] Chronic pain syndrome (Primary Dx); S/P lumbar [...] week 06/20/2023 How often do you attend judaism or muslim serv ices? Never 06/20/2023 Do you belong [...] Answer Date Recorded PHQ-2 Score 1 06/23/2023 [facility] of Occupat ional Health - Occupational Stress [...] Del Cid NP - 07/19/2023 3:00 PM CERTIFIED EMERGENCY VEHICLE TECHNICIAN Okay to try TENS unit. Please see [...] with this provider. [facility] business day if I am given a prescription for any pain medication by another healthcare provider. My [facility] care team can contact other providers and pharmacists about my use of any medicines. Scheduling/Clinic telephone number for ALL locations: [phone] After Hours On-Call Service for Emergencies: [phone] Call with any questions about your care and for scheduling assistance. Calls are returned Tuesday through Tuesday between 8 AM and 4:00 PM. We usually get back to you within 2-3 business days depending on the issue/request. I am not in the clinic on Fridays. If we are prescribing your medications: For medication refills, call the clinic or send a [employer] message 7 days in advance. Please includethe name of the requested medication and your preferred pharmacy. Please allow 3-4 days to be processed. Per [place] State Law, all controlled substance prescriptions must [...] may lead to dismissal from the clinic. IFIED EMERGENCY VEHICLE TECHNICIAN documented in this encounter Progress Notes * [...] be resent by: Text to cell phone: [phone] Will anyone else be joining your video visit? No Video-Visit Details Type of service: Video Visit converted to telephone visit as she was unable to connect Visit Start Time: 2:40 PM Visit End Time:3:26 PM Originating Location (pt. Location): Home Distant Location (provider location): On-site Platform used for Video Visit: Unable to complete video visit, converted to telephone. Is Pt currently in [place]? Yes NOTE: If Pt is not in [place], Appointment needs to be canceled and rescheduled. [facility] Pain Management Date of Visit: 07/19/2023 [...] hematoma with Dr. Mayo on 08/20/2020 at [facility]. Mental Health - the patient's mental [...] a cattle prod. - Was seen at [facility] in May 27, given [address]. She - TENS in the past was helpful, but lost it in a move. She asks about a clinic that used hallucinogenic or ketamine. - No f/s/c. No bowel or bladder changes. - Continues to play video games and is feeling that this is really helping her to feel better and happier. Currently playing [employer], really likes that this allows her [...] continues visits with therapist at [place] [facility], has found this helpful and feels [...] prn Clonazepam 0.5mg BID prn Review of [place] Prescription Monitoring Program (CANE FEEDER): No concern for abuse or misuse of [...] hematoma with Dr. Mayo on 08/20/2020 at [facility] cervical fusion 2002 L5-S1 hemilaminectomy 2004 [...] her children's lives. One son lives in [place], others are local. One son (disabled from long covid/ substance use disorder) and his live with her. 5 grandchildren, 18 (boy), 16 (girl) and 3 are 5 (twin girls + girl who is three days apart from the twins). For fun, enjoys video games, crossword puzzles, being on [employer]. Last updated 02/14/2023 Medications and Allergies reviewed. [...] 0 Mary Del Cid CNP-BC, PMGT-BC, AP-PMN [facility] BILLING TIME DOCUMENTATION: The total TIME [...] documenting clinical information in Epic 1 minutes IFIED EMERGENCY VEHICLE TECHNICIAN documented in this encounter Plan of Treatment Upcoming Encounters Date Type Department Care Team (Late st Contact Info) Description 08/18/2023 3:00 PM CERTIFIED EMERGENCY VEHICLE TECHNICIAN Office Visit [facility] [address] [place] [address] Katiana Read MD [address] [place] [address] documented as of this encounter Goals Goal [...] Score: 7 06/23/20 23 1:54 PM CERTIFIED EMERGENCY VEHICLE TECHNICIAN documented as of this encounter Care Teams Wafer Batter Mixer Relationship Specialty [place] [address] [place] [address] PCP - General Family Medicine 05/18/22 Jovany Gonzalez MD [facility] [address] [facility] [address] [place], [place] [address] Orthopedics 02/15/17 Staci Woodward, MACHINE FILLER SERVICER [facility] [address] [place], [place] [address] Nurse Practitioner Nurse Practitioner Psych/Mental Health 05/10/17 Reanna Smith, RD [facility] [address] [place], [place] [address] Dimension Stone Quarry Supervisor Dietitian, Registered 07/25/19 Roshni Nascimento, RN Personal Advocate & Liaison (PAL) Family Medicine 08/18/20 Kiet Swain MD [address] [place], [place] [address] [place], [place] [address] Referring Physician Psychiatry 09/19/20 Winsome Pike, VIDHI PHOTOENGRAVING APPRENTICE [address] [place] [address] Nurse Practitioner Psychiatry 09/19/20 Tori Hines, [facility] [address] [place] [address] Veterinary Technologist Veterinary Technologist - Clinical 09/19/20 Miranda Queen [facility] [address] [place] [address] Pharmacist Pharmacist 11/12/20 Marisel Armando MD [address] [place] [address] Gastroenterology 02/05/21 Wesley Barrett MD [address] [facility] 96 [place] [address] Assigned Neuroscience Provider 05/10/21 [place] [address] [place] [address] Assigned PCP 05/15/22 Katiana Read MD [address] [facility] 200 [place] [address] Assigned Endocrinology Provider 06/19/22 [place] [address] [place] [address] Nurse Practitioner Nurse Practitioner 10/18/22 [facility] [address] [place] [address] Pharmacist Pharmacist 10/19/22 Aubrey Jones MD [address] [place] [address] Cardiovascular Disease 03/28/23 Blanquita Morales Dimension Stone Quarry Supervisor Diabetes Education 04/25/23 Aubrey Jones MD [address] [place] [address] Assigned Heart and Vascular Provider 05/07/23 documented as of this encounter
--- OUTSIDE RECORDS SUMMARY | 2023-08-03 12:36 | XMS_ITS ---
Care Plan Created on: August 03, 2023 Kaila Hare : 1960 Sex: Female Author Name Unknown Organization [facility] Address [address] [place] [address]. [place] [address] Care Team Providers Care Document Imaging Manager Name Role Phone Jovany Gonzalez MD Unavailable [phone] CrissyStaci jeong NP Unavailable [phone] Unavailable [phone] Roshni Nascimento RN Unavailable Unavailable Kiet Swain MD Unavailable [phone] Winsome Pike APRN COMMUNITY SERVICE ORGANIZATION DIRECTOR Unavailable [phone] Tori Hines [facility] Unavailable Miranda Queen [facility] Unavailable Unavailable Marisel Armando MD Unavailable Wesley Barrett MD Unavailable [phone] Dyan Fuentes MD Primary Care Provider [phone] Dyan Fuentes MD Unavailable [phone] Katiana Read MD Unavailable [phone] Mary Del Cid WET MACHINE CUTTER Unavailable + [phone] Elham Stack [facility] Unavailable [phone] Aubrey Jones MD Unavailable [phone] Blanquita Morales Unavailable Unavailable Aubrey Jones MD Unavailable [phone] Active Problems Problem Noted Date Diagnosed Date [...] 04/25/2023 Refer patient to appropriate extended care warehouse team leader, as needed (Medication Therapy Management, Behavioral Health, [...] patient; Refer patient to appropriate extended care warehouse team leader, as needed (Medication Therapy Management, Behavioral Health, [...]
--- OUTSIDE RECORDS SUMMARY | 2023-08-03 12:36 | XMS_ITS | Encounter Summary ---
Author Name Unknown Organization [facility] Address [address] [place] [address]. [place] [address] Care Team Providers Care Acrylic Fabricator Name Role Phone Jovany Gonzalez MD Unavailable CrissyStaci jeong SLITTING AND SHIPPING SUPERVISOR Unavailable [phone] Unavailable [phone] Roshni Nascimento RN Unavailable Unavailable Kiet Swain MD Unavailable [phone] Winsome Pike APRN PROFESSOR OF BUSINESS Unavailable [phone] Tori Hines [facility] Unavailable Miranda Queen [facility] Unavailable Unavailable Marisel Armando MD Unavailable Wesley Barrett MD Unavailable [phone] Dyan Fuentes MD Primary Care Provider [phone] Dyan Fuentes MD Unavailable [phone] Katiana Read MD Unavailable [phone] Mary Winkler SLITTING AND SHIPPING SUPERVISOR Unavailable + [phone] Elham Stack [facility] Unavailable [phone] Aubrey Jones MD Unavailable [phone] Blanquita Morales Unavailable Unavailable Aub[facility] Jones MD Unavailable [phone] Reason for Visit * Reason Onset Date Comments Medication Request 08/02/2023 Encounter Details Date Type Department Care Team (Late st Contact Info) Description 08/02/[address] [facility] [place] [address] [facility] [address] [place], [place] [address] [place] [address] [place] [address] Medication Request Social History Tobacco Use Types [...] week 06/20/2023 How often do you attend zoroastrian or pentecostalism serv ices? Never 06/20/2023 Do you belong [...] Answer Date Recorded PHQ-2 Score 2 08/01/2023 [facility] [place] of Occupat ional Health - Occupational Stress [...] Janine Argueta RN - 08/02/2023 1:24 PM MEDICAL DRIVER Order reprinted and sent via mail to pt's address Janine Raymundo RN Outbound Sales Advisor [facility] CAL DRIVER * Telephone Encounter - Berna Michael - 08/02/2023 1:05 PM CST [facility] Call Center Phone Message May a [...] to: Other: Pain Travel Screening: Not Applicable CAL DRIVER documented in this encounter Plan of Treatment Upcoming Encounters Date Type Department Care Team (Late st Contact Info) Description 08/18/2023 3:00 PM MEDICAL DRIVER Office Visit [facility] [address] [place] [address] Katiana Read MD [address] [place] [address] documented as of this encounter Goals Goal [...] Total Score: 8 08/01/19 24 1:11 PM MEDICAL DRIVER documented as of this encounter Care Teams Acrylic Fabricator Relationship Specialty [place] [address] [place] [address] PCP - General Family Medicine 05/18/22 Jovany Gonzalez MD [facility] [address] [facility] [address] [place], [place] [address] Orthopedics 02/15/17 Staci Woodward NP [place] [address] [place], [place] [address] Nurse Practitioner Nurse Practitioner Psych/Mental Health 05/10/17 Reanna Smith, [facility] [address] [place] [address] Consulting Group Analyst Dietitian, Registered 07/25/19 Roshni Nascimento, RN Personal Advocate & Liaison (PAL) Family Medicine 08/18/20 Kiet Swain MD [address] [place] [address] [address] [place] [address] Referring Physician Psychiatry 09/19/20 Winsome Pike APRN PROFESSOR OF BUSINESS [address] [place] [id number] Nurse Practitioner Psychiatry 09/19/20 Tori Hines, [facility] [address] [place] [id number] Fire Chief Fire Chief - Clinical 09/19/20 Miranda Queen [facility] [address] [place] [address] Pharmacist Pharmacist 11/12/20 Marisel Armando MD [address] [place], [place] [address] Gastroenterology 02/05/21 Wesley Barrett MD 420 [facility] 96 [place], [place] [address] Assigned Neuroscience Provider 05/10/21 [place] [address] [place] [address] Assigned PCP 05/15/22 Katiana Read MD [address] [place] [address] Assigned Endocrinology Provider 06/19/22 [place] [address] [address] [place] [address] Nurse Practitioner Nurse Practitioner 10/18/22 Elham Stack, [facility] [address] [place] [address] Pharmacist Pharmacist 10/19/22 Aubrey Jones MD [address] [place] [address] Cardiovascular Disease 03/28/23 Blanquita Morales Consulting Group Analyst Diabetes Education 04/25/23 Aubrey Jones MD [address] [place] [address] Assigned Heart and Vascular Provider 05/07/23 documented as of this encounter
--- OUTSIDE RECORDS SUMMARY | 2023-08-03 12:36 | XMS_ITS | Encounter Summary ---
Author Name Unknown Organization [place] Address [address] [place] [address]. [place] [address] Care Team Providers Care Field Servicer Name Role Phone Jovany Gonzalez MD Unavailable CrissyStaci jeong JEWELRY BEARING MAKER Unavailable [phone] Unavailable [phone] Roshni Nascimento RN Unavailable Unavailable Kiet Swain MD Unavailable Winsome Pike APRN METEOROLOGY TEACHER Unavailable [phone] Tori Hines [facility] Unavailable Miranda Queen [facility] Unavailable Unavailable Marisel Armando MD Unavailable Wesley Barrett MD Unavailable [phone] Dyan Fuentes MD Primary Care Provider [phone] Dyan Fuentes MD Unavailable [phone] Katiana Read MD Unavailable [phone] Mary Del Cid JEWELRY BEARING MAKER Unavailable + [phone] Elham Stack [facility] Unavailable [phone] Aubrey Jones MD Unavailable [phone] Blanquita Morales Unavailable Unavailable Aubrey Jones MD Unavailable [phone] Reason for Visit * Reason Comments Pre-Op Exam Surgery 08/03/2023 r ight eye and 08/24/2023 for left eye Encounter Details Date Type Department Care Team (Late st Contact Info) Description 08/01/2023 2:00 PM ROLL UP GUIDER OPERATOR Office Visit [facility] [address] [place] [phone] [place] [address] [place] [address] Preop general physical exam (Primary [...] week 06/20/2023 How often do you attend episcopalian or confucianist serv ices? Never 06/20/2023 Do you belong to any clubs o r organizations such as episcopalian groups, unions, fraternal or athletic groups, or [...] Answer Date Recorded PHQ-2 Score 2 [facility]01[facility]2023 [facility] Questionnaire Answer [...] Comments Blood Pressure 119/82 08/01/2023 1:22 PM ROLL UP GUIDER OPERATOR Pulse 70 08/01/2023 1:22 PM ROLL UP GUIDER OPERATOR Temperature 36.6 ??C (97.8 ??F) 08/01/2023 1:22 PM CS T Respiratory Rate 20 08/01/2023 1:22 PM ROLL UP GUIDER OPERATOR Oxygen Saturation 96% 08/01/2023 1:22 PM ROLL UP GUIDER OPERATOR Inhaled Oxygen Concentration - - Weight 115.7 kg (255 lb) 08/01/2023 1:22 PM ROLL UP GUIDER OPERATOR Height 172.7 cm (5' 8) 08/01/2023 1:22 PM ROLL UP GUIDER OPERATOR Body Mass Index 38.77 08/01/2023 1:22 PM ROLL UP GUIDER OPERATOR documented in this encounter Patient Instructions * Patient Instructions* Johnnie Moody NP - 08/01/2023 2:00 PM ROLL UP GUIDER OPERATOR Preparing for Your Surgery Getting started A nurse will call you to review your health history and instructions. They will give you an arrivaltime based on your scheduled surgery time. Please be ready to share: Your doctor's clinic name and phone number Your medical, surgical, and anesthesia history A list of allergies and sensitivities A list of medicines, including herbal treatments and daql-ewa-rsbvolt drugs Whether the patient has a legal [...] surgery. (If you don't have insurance, call [phone].) Call your clinic if there's any change [...] your health care provider. Copyright ?? 2018 [facility]. All rights reserved. Clinically reviewed by Dimple Bartlett MD. [employer] [id number] - REV 07/01. How to Take Your Medication Before Surgery - hold eliquis and then continue other medications UP GUIDER OPERATOR documented in this encounter Progress Notes * Johnnie Moody NP - 08/01/2023 2:00 PM CST Preoperative Evaluation [address] [address] Primary Provider: Dyan Fuentes Pre-op Performing Provider: JOHNNIE MOODY Aug 01, 2023 Kaila is a 62 year old, presenting for the following: Pre-Op Exam (Surgery 08/03/2023 right eye and 08/24/2023 for left eye) 08/01/2023 1:20 PM Additional Questions Roomed by Lynda Oliver Surgical Information Surgery/Procedure: right cataract on 08/03/2023 and left cataract on 08/24/2023 Surgery Location: [facility] Surgeon: Dr. Multani Surgery Date: 08/03/2023 and 08/24/2023 Time of Surgery: 945AM Where patient plans to recover: At home with family Fax number for surgical facility: [phone] Assessment & Plan The proposed surgical procedure [...] of the clinic that manages your device: [employer] 16. Do you have artificial joints? YES - right leg pins and hip replacement 17. Are you allergic to latex? No Health Care Directive Patient does not have a Health Care Directive or Living Will: Discussed advance care planning with patient; however, patient declined at this time. Preoperative Review of MARKETING FINANCE MANAGER MARKETING FINANCE MANAGER reviewed - controlled substances reflected in medication [...] ANKLE ARTHROSCOPY; Surgeon: Jovany Gonzalez MD; Location: [facility] OR;Service: BACK SURGERY Lumbar and cervical CARDIAC [...] MD; Location: [facility]; Service: rectocele and cystocel repairs REMOVE HARDWARE LOWER EXTREMITY Right 12/13/2017 Procedure: REMOVAL OF SYNDESMOSIS SCREWS, SUHAS; Surgeon: Jovany Gonzalez MD; Location: [facility]; Service: REPAIR RECTOCELE TONSILLECTOMY [facility] NONSPECIFIC PROCEDURE 06/2001 Colonoscopy - neg -- [...] days 180 tablet 3 Continuous Blood Gluc Truck Service Technician (DEXCOM G6 MICROSOFT BI ARCHITECT) ANITA USE DAILY 1 each 0 Continuous [...] mouth daily (with breakfast) 100 tablet 1 Gianbknyzna-Xcqxwbbqa-Uxdhkzdaey (TRELEGY ELLIPTA) 200-62.5-25 MCG/ACT oral inhaler Inhale [...] 3 naloxone (NARCAN) 4 MG/0.1ML nasal spray [place] 1 spray (4 mg) into one nostril alternating nostrilsonce as needed for opioid reversal 0.2 mL 0 nitroGLYcerin (NITROSTAT) 0.[address] 1 tablet (0.4 mg) under the tongue every 5minutes as needed for chest pain 25 tablet 0 nystatin (MYCOSTATIN) 231357 UNIT/GM external ointment Apply topically 2 times [...] on 08/01/2023) ANTHONY 7 TOTAL SCORE: 2 UP GUIDER OPERATOR documented in this encounter Plan of Treatment Upcoming Encounters Date Type Department Care Team (Late st Contact Info) Description 08/18/2023 3:00 PM ROLL UP GUIDER OPERATOR Office Visit [facility] [address] [place] [address] Katiana Read MD [address] [place] [address] documented as of this encounter Goals Goal Patient Goal Type Associated Problems Recent Progress Patient-Stated? Author Establish Regular Follow-Ups with PCP Care Plan HbA1C Not In Goal No Blanqutia Morales Get HbA1C Level in Goal Care [...] Total Score: 8 08/01/19 24 1:11 PM ROLL UP GUIDER OPERATOR documented as of this encounter Care Teams Field Servicer Relationship Specialty [place] [address] [place] [address] PCP - General Family Medicine 05/18/22 Jovany Gonzalez MD [facility] [address] [facility] [address] [place], [place] [address] Orthopedics 02/15/17 Staci Woodward JEWELRY BEARING MAKER [place] [address] [place], [place] [address] Nurse Practitioner Nurse Practitioner Psych/Mental Health 05/10/17 Reanna Smith, [facility]A [place] [address] [place], [place] [address] Battery Tester And Repairer Dietitian, Registered 07/25/19 Roshni Nascimento, RN Personal Advocate & Liaison (PAL) Family Medicine 08/18/20 Kiet Swain MD [address] [facility] [address] [place] [address] Referring Physician Psychiatry 09/19/20 Winsome Pike APRN METEOROLOGY TEACHER [address] [place] [address] Nurse Practitioner Psychiatry 09/19/20 Tori Hines [facility] [address] [place] [address] Chalker Soles Chalker Soles - Clinical 09/19/20 Miranda Queen [facility] [address] [place] [address] Pharmacist Pharmacist 11/12/20 Marisel Armando MD [address] [place], [place] [address] Gastroenterology 02/05/21 Wesley Barrett MD [address] [facility] [address] [place], [place] [address] Assigned Neuroscience Provider 05/10/21 [place] [address] [place], [place] [address] Assigned PCP 05/15/22 Katiana Read MD [address] [facility] [address] [place], [place] [address] Assigned Endocrinology Provider 06/19/22 Mary Del Cid, RAFAEL [address] [place] [address] Nurse Practitioner Nurse Practitioner 10/18/22 Elham Stack, [facility] [address] [place] [address] Pharmacist Pharmacist 10/19/22 Aubrey Jones MD [address] [place] [address] Cardiovascular Disease 03/28/23 Blanquita Morales Battery Tester And Repairer Diabetes Education 04/25/23 Aubrey Jones MD [address] [place] [address] Assigned Heart and Vascular Provider 05/07/23 documented as of this encounter
--- OUTSIDE RECORDS SUMMARY | 2023-08-03 12:36 | XMS_ITS | Encounter Summary ---
Author Name Unknown Organization [facility] Address [address] [place] [address]. [place] [address] Care Team Providers Care Repair Department Supervisor Name Role Phone Jovany Gonzalez MD Unavailable [phone] CrissyStaci jeong PAPER PRODUCTION ENGINEER Unavailable [phone] Unavailable [phone] Roshni Nascimento RN Unavailable Unavailable Kiet Swain MD Unavailable [phone] Winsome Pike APRN CLOTH MEASURER MACHINE Unavailable [phone] Tori Hines [facility] Unavailable Miranda Queen [facility] Unavailable Unavailable Marisel Armando MD Unavailable Wesley Barrett MD Unavailable [phone] Dyan Fuentes MD Primary Care Provider [phone] Dyan Fuentes MD Unavailable [phone] Katiana Read MD Unavailable [phone] Mary Del Cid PAPER PRODUCTION ENGINEER Unavailable + [phone] Elham Stack [facility] Unavailable [phone] Aubrey Jones MD Unavailable [phone] Blanquita Morales Unavailable Unavailable Aubrey Joens MD Unavailable [phone] Reason for Visit * Reason Comments Medication Refill Encounter Details Date Type Department Care Team (Late st Contact Info) Description 07/21/2023 Refill [facility] [address] [place] [address] Katiana Read MD [address] [place] [address] Medication Refill Social History Tobacco Use Types [...] week 06/20/2023 How often do you attend buddhism or muslim serv ices? Never 06/20/2023 Do [...] Answer Date Recorded PHQ-2 Score 1 06/23/2023 [facility] of Occupat ional Health - Occupational Stress [...] Meds & Orders section of therefill encounter. RVISOR PRODUCTION documented in this encounter Plan of Treatment Upcoming Encounters Date Type Department Care Team (Late st Contact Info) Description 08/18/2023 3:00 PM SUPERVISOR PRODUCTION Office Visit [facility] [address] [facility] [address] [place] [address] Katiana Read MD [address] [facility] [address] [place] [address] documented as of this encounter Goals Goal [...] Score: 7 06/23/20 23 1:54 PM SUPERVISOR PRODUCTION documented as of this encounter Care Teams Repair Department Supervisor Relationship Specialty [place] [address] [place] [address] PCP - General Family Medicine 05/18/22 Jovany Gonzalez MD [facility] [address] [facility] 605 [place], [place] [address] Orthopedics 02/15/17 Staci Woodward NP [place] [address] [place] [address] Nurse Practitioner Nurse Practitioner Psych/Mental Health 05/10/[address] [facility] [address] [place] [address] Cigar Packer And Sorter Dietitian, Registered 07/25/19 Roshni Nascimento, RN Personal Advocate & Liaison (PAL) Family Medicine 08/18/20 Kiet Swain MD [facility] [address] [place], [place] [address] Referring Physician Psychiatry 09/19/20 Winsome Piek APRN CLOTH MEASURER MACHINE [address] [place] [address] Nurse Practitioner Psychiatry 09/19/20 Tori Hines, [facility]0 [place], [place] [address] Spa Supervisor Spa Supervisor - Clinical 09/19/20 [facility] [address] [place] [address] Pharmacist Pharmacist 11/12/20 Marisel Armando MD [address] [place], [place] [address] Gastroenterology 02/05/21 Wesley Barrett MD [address] [facility] 96 [place] [address] Assigned Neuroscience Provider 05/10/21 [place] [address] [place] [address] Assigned PCP 05/15/22 Katiana Read MD [address] [place], [place] [address] Assigned Endocrinology Provider 06/19/22 [place] [address] [place] [address] Nurse Practitioner Nurse Practitioner 10/18/22 Elham Stack, [facility] [address] [facility] [place], [place] [address] Pharmacist Pharmacist 10/19/22 Aubrey Jones MD [address] [place] [address] Cardiovascular Disease 03/28/23 Blanquita Morales Cigar Packer And Sorter Diabetes Education 04/25/23 Aubrey Jones MD [address] [place] [address] Assigned Heart and Vascular Provider 05/07/23 documented as of this encounter
--- OUTSIDE RECORDS SUMMARY | 2023-08-03 12:37 | XMS_ITS | Encounter Summary ---
Author Name Unknown Organization [place] Address [address] [place] [address]. [place] [address] Care Team Providers Care Relations Director Name Role Phone Jovany Gonzalez MD Unavailable CrissyStaci jeong PRODUCTION POTTER Unavailable [phone] Unavailable [phone] Roshni Nascimento RN Unavailable Unavailable Kiet Swain MD Unavailable [phone] Winsome Pike APRN REVENUE RESEARCH ANALYST Unavailable [phone] Tori Hines [facility] Unavailable Miranda Queen [facility] Unavailable Unavailable Marisel Armando MD Unavailable Wesley Barrett MD Unavailable [phone] Dyan Fuentes MD Primary Care Provider [phone] Dyan Fuentes MD Unavailable [phone] Katiana Read MD Unavailable [phone] Mary Del Cid PRODUCTION POTTER Unavailable + [phone] Elham Stack [facility] Unavailable [phone] Aubrey Jones MD Unavailable [phone] Blanquita Morales Unavailable Unavailable Aubrey Jones MD Unavailable [phone] Encounter Details Date Type Department Care Team (Late st Contact Info) Description 07/14/2023 Orders Only [address] [address] Lenka Parks PA-C 500 [place] [address] Postprocedural hypothyroidism Social History Tobacco [...] week 06/20/2023 How often do you attend synagogue or mandaeism serv ices? Never 06/20/2023 Do you belong [...] Answer Date Recorded PHQ-2 Score 1 06/23/2023 [facility] of Occupat ional Health - Occupational Stress [...] st Contact Info) Description 08/18/2023 3:00 PM STERILE INSTRUMENT TECHNICIAN Office Visit [facility] [address] [place] [address] Katiana Read MD [address] [place] [address] documented as of this encounter Goals Goal Patient Goal Type Associated Problems Recent Progress Patient-Stated? Author Establish Regular Follow-Ups with PCP Care Plan HbA1C Not In Goal No Balnquita Morales Get HbA1C Level in Goal Care [...] Total Score: 7 06/23/20 23 1:54 PM STERILE INSTRUMENT TECHNICIAN documented as of this encounter Care Teams Relations Director Relationship Specialty [place] [address] [place] [address] PCP - General Family Medicine 05/18/22 Jovany Gonzalez MD [facility] [address] [facility] [address] [place] [address] Orthopedics 02/15/17 Staci Woodward, PRODUCTION POTTER [place] [address] [place] [address] Nurse Practitioner Nurse Practitioner Psych/Mental Health 05/10/17 Reanna Smith, [facility] [address] [place], [place] [address] Ultrasonic Solderer Dietitian, Registered 07/25/19 Roshni Nascimento, RN Personal Advocate & Liaison (PAL) Family Medicine 08/18/20 Kiet Swain MD [address] [place], [place] [address] [place], [place] [address] Referring Physician Psychiatry 09/19/20 Winsome Pike APRN REVENUE RESEARCH ANALYST [address] [place] [address] Nurse Practitioner Psychiatry 09/19/20 Tori Hines, [facility] [address] [place] [address] Pellet Machine Operator Pellet Machine Operator - Clinical 09/19/20 Miranda Queen [facility] [address] [place] [address] Pharmacist Pharmacist 11/12/20 Marisel Armando MD [address] [place] [address] Gastroenterology 02/05/21 Wesley Barrett MD 420 [facility] [address] [place] [address] Assigned Neuroscience Provider 05/10/21 [place] [address] [place] [address] Assigned PCP 05/15/22 Katiana Read MD [address] [facility] 200 [place] [address] Assigned Endocrinology Provider 06/19/22 [place] [address] [place] [address] Nurse Practitioner Nurse Practitioner 10/18/22 [facility] [address] [place] [address] Pharmacist Pharmacist 10/19/22 Aubrey Jones MD [address] [place] [address] Cardiovascular Disease 03/28/23 Blanquita Morales Ultrasonic Solderer Diabetes Education 04/25/23 Aubrey Jones MD [address] [place] [address] Assigned Heart and Vascular Provider 05/07/23 documented as of this encounter
--- OUTSIDE RECORDS SUMMARY | 2023-08-03 12:37 | XMS_ITS | Encounter Summary ---
Author Name Unknown Organization [facility] Address [address] [place] [address]. [place] [address] Care Team Providers Care Dispatcher Chief Oil Name Role Phone Jovany Gonzalez MD Unavailable [phone] CrissyStaci jeong PROCESS CONTROL SUPERVISOR Unavailable [phone] Unavailable [phone] Roshni Nascimento RN Unavailable Unavailable Kiet Swain MD Unavailable [phone] Winsome Pike APRN REGISTER CLERK Unavailable [phone] Tori Hines [facility] Unavailable Miranda Queen [facility] Unavailable Unavailable Marisel Armando MD Unavailable Wesley Barrett MD Unavailable [phone] Dyan Fuentes MD Primary Care Provider [phone] Dyan Fuentes MD Unavailable [phone] Katiana Read MD Unavailable [phone] Mary Del Cid PROCESS CONTROL SUPERVISOR Unavailable + [phone] Elham Stack [facility] Unavailable [phone] Aubrey Jones MD Unavailable [phone] Blanquita Morales Unavailable Unavailable Aubrey Jones MD Unavailable [phone] Encounter Details Date Type Department Care Team [...] week 06/20/2023 How often do you attend restorationism or restorationism serv ices? Never 06/20/2023 Do you belong to any clubs o r organizations such as restorationism groups, unions, fraternal or athletic groups, or [...] Answer Date Recorded PHQ-2 Score 1 06/23/2023 [facility] of Occupat ional Health - [...] st Contact Info) Description 08/18/2023 3:00 PM SPEAKING UNIT ASSEMBLER Office Visit [facility] [address] [place] [address] Katiana Read MD [address] [place] [address] documented as of this encounter Goals Goal [...] Total Score: 7 06/23/20 23 1:54 PM SPEAKING UNIT ASSEMBLER documented as of this encounter Care Teams Dispatcher Chief Oil Relationship Specialty [place] [address] [place] [address] PCP - General Family Medicine 05/18/22 Jovany Gonzalez MD [facility] [address] [facility] 605 [place], [place] [address] Orthopedics 02/15/17 Staci Woodward, PROCESS CONTROL SUPERVISOR [place] [address] [place], [place] [address] Nurse Practitioner Nurse Practitioner Psych/Mental Health 05/10/17 Reanna Smith, RD [place] [address] [place], [place] [address] Construction Trades Teacher Dietitian, Registered 07/25/19 Roshni Nascimento, RN Personal Advocate & Liaison (PAL) Family Medicine 08/18/20 Kiet Swain MD [address] [place] [address] Referring Physician Psychiatry 09/19/20 Winsome Pike APRN REGISTER CLERK [address] [place] [address] Nurse Practitioner Psychiatry 09/19/20 Tori Hines, [facility] [address] [place] [address] Tassel Snipper Tassel Snipper - Clinical 09/19/20 Miranda Queen [facility] [address] [place] [address] Pharmacist Pharmacist 11/12/20 Marisel Armando MD [address] [place], [place] [address] Gastroenterology 02/05/21 Wesley Barrett MD [address] [facility] [address] [place] [address] Assigned Neuroscience Provider 05/10/21 [place] [address] [place] [address] Assigned PCP 05/15/22 Katiana Read MD [address] [place] [address] Assigned Endocrinology Provider 06/19/22 [place] [address] [place] [address] Nurse Practitioner Nurse Practitioner 10/18/22 Elham Stack, [facility] [address] [place] [address] Pharmacist Pharmacist 10/19/22 Aubrey Jones MD [address] [place] [address] Cardiovascular Disease 03/28/23 Blanquita Morales Construction Trades Teacher Diabetes Education 04/25/23 Aubrey Jones MD [address] [place] [address] Assigned Heart and Vascular Provider 05/07/23 documented as of this encounter
--- OUTSIDE RECORDS SUMMARY | 2023-08-03 12:37 | XMS_ITS | Encounter Summary ---
Author Name Unknown Organization [facility] Address [address] [place] [address]. [place] [address] Care Team Providers Care Business Manager [employer] Name Role Phone Jovany Gonzalez MD Unavailable CrissyStaci jeong POLICY ADVISOR Unavailable [phone] Unavailable [phone] Roshni Nascimento RN Unavailable Unavailable Kiet Swain MD Unavailable [phone] Winsome Pike APRN DIAGNOSTICS TECH Unavailable [phone] Tori Hines [facility] Unavailable Miranda Queen [facility] Unavailable Unavailable Marisel Armando MD Unavailable Wesley Barrett MD Unavailable [phone] Dyan Fuentes MD Primary Care Provider [phone] Dyan Fuentes MD Unavailable [phone] Katiana Read MD Unavailable [phone] Mary Del Cid POLICY ADVISOR Unavailable + [phone] Elham Stack [facility] Unavailable [phone] Aubrey Jones MD Unavailable [phone] Blanquita Morales Unavailable Unavailable Aubrey Jones MD Unavailable [phone] Encounter Details Date Type Department Care Team (Late st Contact Info) Description 07/13/2023 Telephone [facility] [address] [place] [address] Katiana Read MD [address] [place] [address] Social History Tobacco Use Types Packs/Day Years [...] week 06/20/2023 How often do you attend evangelical or advent serv ices? Never 06/20/2023 Do [...] Answer Date Recorded PHQ-2 Score 1 06/23/2023 [facility] - Occupational [...] Torri Benites RN - 07/15/2023 7:55 AM FLAT EXAMINER Pt was informed via [facility]. Spoke to pt and confirmed that Pt read [facility] lab comment. Pt took first dose today EXAMINER * Telephone Encounter - Katiana Read MD - 07/14/2023 4:23 PM FLAT EXAMINER TSH is very high-- recommend to increase dose. TSH Date Value Ref Range Status 07/12/2023 74.10 (H) 0.30 - 4.20 uIU/mL Final 06/08/2021 35.36 (H) 0.40 - 4.00 mU/L Final 08/19/2020 0.70 0.40 - 4.00 mU/L Final EXAMINER * Telephone Encounter - Torri Benites RN - 07/14/2023 10:02 AM FLAT EXAMINER Spoke to pt- before able to inform [...] and recheck or increase medications? Please call [phone]- okay to [facility] EXAMINER * Telephone Encounter - Katiana Read MD - 07/14/2023 9:57 AM FLAT EXAMINER TSh is high. Currently she is taking levothyroxine 350 mcg/day. I would recommend to increase dose to 400 mcg/day (200+200). Recheck labs in 6-8 weeks. Can you please send updated prescription? TSH Date Value Ref Range Status 07/12/2023 74.10 (H) 0.30 - 4.20 uIU/mL Final 06/08/2021 35.36 (H) 0.40 - 4.00 mU/L Final 08/19/2020 0.70 0.40 - 4.00 mU/L Final EXAMINER * Telephone Encounter - Nhi Wong RN - 07/13/2023 8:57 AM CST I called the pt, she is taking 350 mcg of levothyroxine on an empty stomach daily, away from any other medications, food, or drink. EXAMINER * Telephone Encounter - Katiana Read MD - 07/13/2023 8:50 AM FLAT EXAMINER Latest Ref Rng 07/12/2023 11:07 AM [facility] TSH 0.30 - 4.20 uIU/mL 74.10 (H) Free T3 2.0 - 4.4 pg/mL Triiodothyronine (T3) 60 - 181 ng/dL FREE T4 0.90 - 1.70 ng/dL 0.53 (L) Legend: (H) High (L) Low She has 08/2023 appointment Can you check if she is taking thyroid medication consistently? And what is the dose? EXAMINER documented in this encounter Plan of Treatment Upcoming Encounters Date Type Department Care Team (Late st Contact Info) Description 08/18/2023 3:00 PM FLAT EXAMINER Office Visit [facility] [address] [place] [address] Katiana Read MD [address] [place], [place] [id number] documented as of this encounter Goals Goal [...] Total Score: 7 06/23/20 23 1:54 PM FLAT EXAMINER documented as of this encounter Care Teams Business Manager College Or [employer] Relationship Specialty [place] [address] [place] [address] PCP - General Family Medicine 05/18/22 Jovany Gonzalez MD [facility] [employer] [address] [facility] [address] [place] [address] Orthopedics 02/15/17 Staci Woodward POLICY ADVISOR [place] [address] [place] [address] Nurse Practitioner Nurse Practitioner Psych/Mental Health 05/10/17 Reanna Smith, RD [place] [address] [place] [address] Personal Financial Counselor Dietitian, Registered 07/25/19 Roshni Nascimento, RN Personal Advocate & Liaison (PAL) Family Medicine 08/18/20 Kiet Swain MD [address] [place] [id number] Referring Physician Psychiatry 09/19/20 Winsome Pike APRN DIAGNOSTICS TECH [facility] [address] [address] Nurse Practitioner Psychiatry 09/19/20 Tori Hines, [facility] [address] [place] [id number] Sack Lifter Sack Lifter - Clinical 09/19/20 Miranda Queen [facility] [address] [place] [address] Pharmacist Pharmacist 11/12/20 Marisel Armando MD [address] [place] [address] Gastroenterology 02/05/21 Wesley Barrett MD [address] [place] [address] [address] [place], [place] [id number] Assigned Neuroscience Provider 05/10/21 [place] [address] [place] [address] Assigned PCP 05/15/22 Katiana Read MD [address] [place] [address] Assigned Endocrinology Provider 06/19/22 [place] [address] [place] [address] Nurse Practitioner Nurse Practitioner 10/18/22 Elham Stack, [facility] [address] [place] [address] Pharmacist Pharmacist 10/19/22 Aubrey Jones MD [address] [place] [address] Cardiovascular Disease 03/28/23 Blanquita Morales Personal Financial Counselor Diabetes Education 04/25/23 Aubrey Jones MD [address] [place] [address] Assigned Heart and Vascular Provider 05/07/23 documented as of this encounter
--- OUTSIDE RECORDS SUMMARY | 2023-08-03 12:37 | XMS_ITS | Encounter Summary ---
Author Name Unknown Organization [facility] Address [address] [place] [address]. [place] [address] Care Team Providers Care Typing Office Worker Name Role Phone Jovany Gonzalez MD Unavailable [phone] CrissyStaci jeong CADDIE SUPERVISOR Unavailable [phone] Unavailable [phone] Roshni Nascimento RN Unavailable Unavailable Kiet Swain MD Unavailable [phone] Winsome Pike APRN SENIOR COST ESTIMATOR Unavailable [phone] Tori Hines [facility] Unavailable Miranda Queen [facility] Unavailable Unavailable Marisel Armando MD Unavailable Wesley Barrett MD Unavailable [phone] Dyan Fuentes MD Primary Care Provider [phone] Dyan Fuentes MD Unavailable [phone] Katiana Read MD Unavailable [phone] Mary Del Cid CADDIE SUPERVISOR Unavailable [phone] Elham Stack [facility] Unavailable [phone] Aubrey Jones MD Unavailable [phone] Blanquita Morales Unavailable Unavailable Aubrey Jones MD Unavailable [phone] Reason for Visit * Reason Onset Date Comments MyChart Communication 07/12/2023 Encounter Details Date Type Department Care Team (Latest Contact Info) Description 07/12/2023 Lauren Medical Advice [facility] [address] [place] [address] Rachelle Benites CMA MyChart Communication [...] week 06/20/2023 How often do you attend hindu or uatsdin serv ices? Never 06/20/2023 Do [...] Answer Date Recorded PHQ-2 Score 1 06/23/2023 [facility] [place] - Occupational Stress [...] Rachelle Benites CMA - 07/18/2023 7:42 AM CLIENT HR MANAGER Dexcom report in your inbox. Zenobia Benites CMA -[facility] Endocrinology [place] [phone] NT HR MANAGER documented in this encounter Plan of Treatment Upcoming Encounters Date Type Department Care Team (Late st Contact Info) Description 08/18/2023 3:00 PM CLIENT HR MANAGER Office Visit [facility] [address] [place] [address] Katiana Read MD [address] [place] [address] documented as of this encounter [...] Total Score: 7 06/23/20 23 1:54 PM CLIENT HR MANAGER documented as of this encounter Care Teams Typing Office Worker Relationship Specialty [place] [address] [place] [address] PCP - General Family Medicine 05/18/22 Jovany oGnzalez MD [employer] [address] [facility] [address] [place], [place] [address] Orthopedics 02/15/17 Staci Woodward CADDIE SUPERVISOR [facility] [address] [place], [place] [id number] Nurse Practitioner Nurse Practitioner Psych/Mental Health 05/10/17 Reanna Smith, RD [facility] [address] [place], [place] [address] Lawn Mower Repairer Dietitian, Registered 07/25/19 Roshni Nascimento, RN Personal Advocate & Liaison (PAL) Family Medicine 08/18/20 Kiet Swain MD [address] [facility] [address] [place], [place] [id number] Referring Physician Psychiatry 09/19/20 Winsome Pike APRN SENIOR COST ESTIMATOR [address] [address] Nurse Practitioner Psychiatry 09/19/20 Tori Hines, [facility] [address] [place], [place] [address] Beer Coil Cleaner Beer Coil Cleaner - Clinical 09/19/20 Miranda Queen [facility] [address] [place] [address] Pharmacist Pharmacist 11/12/20 Marisel Armando MD [address] [place], [place] [address] Gastroenterology 02/05/21 Wesley Barrett MD [address] [facility] [address] [place] [address] Assigned Neuroscience Provider 05/10/21 [place] [address] [place] [address] Assigned PCP 05/15/22 Katiana Read MD [address] [facility] [address] [place] [address] Assigned Endocrinology Provider 06/19/22 Mary Del Cid, [place] [address] [place] [address] Nurse Practitioner Nurse Practitioner 10/18/22 [facility] [address] [place] [address] Pharmacist Pharmacist 10/19/22 Aubrey Jones MD [address] [facility] [address] [place] [address] Cardiovascular Disease 03/28/23 Blanquita Morales Lawn Mower Repairer Diabetes Education 04/25/23 Aubrey Jones MD [address] [place] [address] Assigned Heart and Vascular Provider 05/07/23 documented as of this encounter
--- OUTSIDE RECORDS SUMMARY | 2023-08-03 12:37 | XMS_ITS | Encounter Summary ---
Author Name Unknown Organization [place] Address [address] [place] [address]. [place] [address] Care Team Providers Care Md Ophthalmologist Name Role Phone Jovany Gonzalez MD Unavailable CrissyStaci jeong ESCROW AGENT Unavailable [phone] Unavailable [phone] Roshni Nascimento RN Unavailable Unavailable Kiet Swain MD Unavailable [phone] Winsome Pike APRN MACHINE COMPOSITOR Unavailable [phone] Tori Hines [facility] Unavailable Miranda Queen [facility] Unavailable Unavailable Marisel Armando MD Unavailable Wesley Barrett MD Unavailable [phone] Dyan Fuentes MD Primary Care Provider [phone] Dyan Fuentes MD Unavailable [phone] Katiana Read MD Unavailable [phone] Mary Del Cid ESCROW AGENT Unavailable + [phone] Elham Stack [facility] Unavailable [phone] Aubrey Jones MD Unavailable [phone] Blanquita Morales Unavailable Unavailable Aubrey Jones MD Unavailable [phone] Reason for Visit * Reason Comments Annual Visit Medicare annual well ness visit Medicare Visit COPD Struggling with her COPD. Encounter Details Date Type Department Care Team (Late st Contact Info) Description 06/23/2023 2:30 PM MUSHROOM PICKER Office Visit [facility] [address] [place] [address] [place] [address] [place] [address] Routine general medical examination at [...] How often do you attend hindu or restoration serv ices? Never 06/20/2023 Do you belong [...] Answer Date Recorded PHQ-2 Score 1 06/23/2023 [facility] - [...] Comments Blood Pressure 120/70 06/23/2023 2:17 PM MUSHROOM PICKER Pulse 62 06/23/2023 2:17 PM MUSHROOM PICKER Temperature 37.2 ??C (99 ??F) 06/23/2023 2:17 PM MUSHROOM PICKER Respiratory Rate 20 06/23/2023 2:17 PM MUSHROOM PICKER Oxygen Saturation 96% 06/23/2023 2:17 PM MUSHROOM PICKER Inhaled Oxygen Concentration - - Weight 113.9 kg (251 lb) 06/23/2023 2:17 PM MUSHROOM PICKER Height 172.7 cm (5' 8) 06/23/2023 2:17 PM MUSHROOM PICKER Body Mass Index 38.16 06/23/2023 2:17 PM MUSHROOM PICKER documented in this encounter Patient Instructions * Patient Instructions* Lynda Oliver, PATRICK - 06/23/2023 2:30 PM MUSHROOM PICKER Preventive Health Recommendations Female Ages 50 - [...] eye doctor every 1 to 2 years. ROOM PICKER documented in this encounter Progress Notes * [...] Licensed by the author for use in [facility] [employer]; reprinted with permission ([email or web address]). All rights reserved. Do you have sleep [...] Practitioner Psych/Mental Health) Reanna Smith RD as Diet Supervisor (Dietitian, Registered) Roshni Nascimento RN as Personal Advocate & Liaison (PAL) (Family Medicine) Kiet Swain MD as Referring Physician (Psychiatry) Winsome Pike APRN CNP as Nurse Practitioner (Psychiatry) Tori Hines [facility] as It Technical Architect (It Technical Architect - Clinical) Miranda Queen, [facility] as Pharmacist (Pharmacist) Marisel Armando MD as MD (Gastroenterology) Wesley Barrett MD as Assigned Neuroscience Provider Dyan Fuentes MD as Assigned PCP Katiana Read MD as Assigned Endocrinology Provider Mary Del Cid NP as Nurse Practitioner (Nurse Practitioner) Elham Stack [facility] as Pharmacist (Pharmacist) Aubrey Jones MD as MD (Cardiovascular Disease) Blanquita Morales as Diet Supervisor (Diabetes Education) Aubrey Jones MD as Assigned [...] ANKLE ARTHROSCOPY; Surgeon: Jovany Gonzalez MD; Location: [facility];Service: BACK SURGERY Lumbar and cervical CARDIAC [...] FIBULAR FRACTURE; Surgeon: Jovany Gonzalez MD; Location: [facility] OR; Service: rectocele and cystocel repairs REMOVE HARDWARE LOWER EXTREMITY Right 12/13/2017 Procedure: REMOVAL OF SYNDESMOSIS SCREWS, SUHAS; Surgeon: Jovany Gonzalez MD; Location: [facility] OR; Service: REPAIR RECTOCELE TONSILLECTOMY ZC [...] reviewed with the Patient. Dyan Fuentes MD [facility] Answers submitted by the patient for this visit: Patient Health Questionnaire (Submitted on 06/23/2023) If you checked off any problems, how difficult have these problems made it for you to do your work,take care of things at home, or get along with other people?: Somewhat difficult PHQ9 TOTAL SCORE: 7 ROOM PICKER documented in this encounter Plan of Treatment Upcoming Encounters Date Type Department Care Team (Late st Contact Info) Description 08/18/2023 3:00 PM MUSHROOM PICKER Office Visit [facility] [address] [place] [address] Katiana Read MD [address] [place] [address] documented as of this encounter Goals Goal [...] DRUG SCREEN CLINIC Routine 06/23/2023 3:28 PM MUSHROOM PICKER Other chronic pain ALBUMIN RANDOM URINE QUANTITATIVE Routine 06/23/2023 3:28 PM MUSHROOM PICKER Type 2 diabetes mellitus without complication, with long-term current use of insulin (H) LIPID REFLEX TO DIRECT LDL PANEL Routine 06/23/2023 3:28 PM MUSHROOM PICKER Hyperlipidemia LDL goal <100 HEMOGLOBIN A1C Routine 06/23/2023 3:28 PM MUSHROOM PICKER Type 2 diabetes mellitus without complication, with long-term current use of insulin (H) BASIC METABOLIC PANEL Routine 06/23/2023 3:28 PM MUSHROOM PICKER Benign essential hypertension documented in this encounter Results * (ABNORMAL) Drug Abuse Screen Panel 13, Urine (Pain Care Map) - lab collect (06/23/2023 3:28 PM MUSHROOM PICKER) [facility] Cannabinoids (12-cwq-7-carboxy -9-THC) Detected(A ) Not Detected, Indeterminate 06/24/2023 2:08 PM MUSHROOM PICKER [facility] Comment: Cutoff for a positive cannabinoid is greater than 50 ng/ml. This is an unconfirmed screening result to be used for medical purposes only. Phencyclidine Not Detected Not Detected, Indeterminate 06/24/2023 2:08 PM MUSHROOM PICKER [facility] Comment:Cutoff for a negativ e PCP is 25 ng/mL or less. Cocaine (Benzoylecgonine) Not Detected Not Detected, Indeterminate 06/24/2023 2:08 PM MUSHROOM PICKER [facility] Comment:Cutoff for a negativ e cocaine is 150 ng/ml or less. Methamphetamine (d-Methamphetamin e) Not Detected Not Detected, Indeterminate 06/24/2023 2:08 PM MUSHROOM PICKER [facility] Comment:Cutoff for a negativ e methamphetamine is 500 ng/ml or less. Opiates (Morphine) Not Detected Not Detected, Indeterminate 06/24/2023 2:08 PM MUSHROOM PICKER [facility] Comment:Cutoff for a negativ e opiate is 100 ng/ml or less. Amphetamine (d-Amphetamine) Not Detected Not Detected, Indeterminate 06/24/2023 2:08 PM MUSHROOM PICKER [facility] Comment:Cutoff for a negativ e amphetamine is 500 ng/mL or less. Benzodiazepines (Nordiazepam) Not Detected Not Detected, Indeterminate 06/24/2023 2:08 PM MUSHROOM PICKER [facility] Comment:Cutoff for a negativ e benzodiazepine is 150 ng/ml or less. Tricyclic Antidepressants (Desipramine) Not Detected Not Detected, Indeterminate 06/24/2023 2:08 PM MUSHROOM PICKER [facility] Comment:Cutoff for a negativ e tricyclic antidepressant is 300 ng/ml or less. Methadone Not Detected Not Detected, Indeterminate 06/24/2023 2:08 PM MUSHROOM PICKER [facility] Comment:Cutoff for a negativ e methadone is 200 ng/ml or less. Barbiturates (Butalbital) Not Detected Not Detected, Indeterminate 06/24/2023 2:08 PM MUSHROOM PICKER [facility] Comment:Cutoff for a negativ e barbituate is 200 ng/ml or less. Oxycodone Not Detected Not Detected, Indeterminate 06/24/2023 2:08 PM MUSHROOM PICKER [facility] Comment:Cutoff for a negativ e oxycodone is 100 ng/mL or less. Buprenorphine Detected(A ) Not Detected, Indeterminate 06/24/2023 2:08 PM MUSHROOM PICKER [facility] Comment: Cutoff for a positive buprenorphine is greater than 10 ng/ml. This is an unconfirmed screening result to be used for medical purposes only. Urine MID-STREAM URINE SPECIMEN / Unknown Non-blood Collection / Unknown 06/23/2023 3:28 PM MUSHROOM PICKER 06/23/2023 3:34 PM MUSHROOM PICKER Dyan Fuentes MD LAB - URINE ORDER LENA [facility] [address] Lab (no room number, 1st floor of clinic) [place] [address], [place] [phone] * (ABNORMAL) Hemoglobin A1c (06/23/2023 3:28 PM MUSHROOM PICKER) Hemoglobin A1C 8.9(H) 0.0 - 5.6 % 06/23/2023 3:49 PM MUSHROOM PICKER LABORATORY Blood BLOOD SPECIMEN / Unknown Venipuncture / Unknown 06/23/2023 3:28 PM MUSHROOM PICKER 06/23/2023 3:34 PM MUSHROOM PICKER Narrative LABORATORY - 06/23/2023 3:49 PM MUSHROOM PICKER Results confirmed by repeat test. Dyan Fuentes MD LAB - BLOOD ORDER [facility] [id number] [place] [address] Lab (no room number, 1st floor of clinic) [place] [address], [place] [phone] * (ABNORMAL) Lipid panel reflex to direct LDL Fasting (06/23/2023 3:28 PM MUSHROOM PICKER) Cholesterol 244(H) <200 mg/dL 06/24/2023 6:12 PM MUSHROOM PICKER [facility] Triglycerides 168(H) <150 mg/dL 06/24/2023 6:12 PM MUSHROOM PICKER [facility] Direct Measure HDL 75 >=50 mg/dL 06/24/2023 6:12 PM MUSHROOM PICKER [facility] LDL Cholesterol Calculated 135(H) <=100 mg/dL 06/24/2023 6:12 PM MUSHROOM PICKER [facility] Non HDL Cholesterol 169(H) <130 mg/dL 06/24/2023 6:12 PM MUSHROOM PICKER [facility] Patient Fasting > 8hrs? Yes 06/24/2023 6:12 PM MUSHROOM PICKER [facility] Blood BLOOD SPECIMEN / Unknown Venipuncture / Unknown 06/23/2023 3:28 PM MUSHROOM PICKER 06/23/2023 3:34 PM MUSHROOM PICKER Narrative [facility] - 06/24/2023 6:12 PM MUSHROOM PICKER Cholesterol Desirable: ??<200 mg/dL Triglycerides Normal: ??Less [...] LAB - BLOOD ORDER LENA [facility] Lab [address] [facility], [address] [phone], [facility] [phone] * Albumin Random Urine Quantitative with Creat Ratio (06/23/2023 3:28 PM MUSHROOM PICKER) Creatinine Urine mg/dL 42.4 mg/dL 06/24/2023 6:21 PM MUSHROOM PICKER [facility] Comment:The reference ranges have not been established in urine creatinine. The results should be integrated into the clinical context for interpretation. Albumin Urine mg/L <12.0 mg/L 2022 6:21 PM MUSHROOM PICKER [facility] Comment:The reference ranges have not been established in urine albumin. The results should be integrated into the clinical context for interpretation. Albumin Urine mg/g Cr 06/24/2023 6:21 PM MUSHROOM PICKER [facility] Comment: Unable to calculate, urine [...] control, and institution of therapy with an yuhtqqypusj-etccwggnze-cywcnn (MACK) inhibitor (if the patient can tolerate it). ?? Urine MID-STREAM URINE SPECIMEN / Unknown Non-blood Collection / Unknown 06/23/2023 3:28 PM MUSHROOM PICKER 06/23/2023 3:34 PM MUSHROOM PICKER Dyan Fuentes MD LAB - URINE ORDER LENA [facility] [address] [facility], [address] [place] [phone], [facility] [phone] * (ABNORMAL) BASIC METABOLIC PANEL (06/23/2023 3:28 PM MUSHROOM PICKER) [facility] Sodium 139 135 - 145 mmol/L 06/24/2023 6:12 PM MUSHROOM PICKER [facility] Comment:Reference intervals for this test were updated on 04/05/2023 to more accurately reflect our healthy population. There may be differences in the flagging of prior results with similar values performed with this method. Interpretation of those prior results can be made in the context of the updated reference intervals. Potassium 4.5 3.4 - 5.3 mmol/L 06/24/2023 6:12 PM MUSHROOM PICKER [facility] Chloride 101 98 - 107 mmol/L 06/24/2023 6:12 PM MUSHROOM PICKER [facility] Carbon Dioxide (CO2) 27 22 - 29 mmol/L 06/24/2023 6:12 PM MUSHROOM PICKER [facility] Anion Gap 11 7 - 15 mmol/L 06/24/2023 6:12 PM MUSHROOM PICKER [facility] Urea Nitrogen 14.3 8.0 - 23.0 mg/dL 06/24/2023 6:12 PM MUSHROOM PICKER [facility] Creatinine 1.28(H) 0.51 - 0.95 mg/dL 06/24/2023 6:12 PM MUSHROOM PICKER [facility] GFR Estimate 47(L) >60 mL/min/1. 73m2 06/24/2023 6:12 PM MUSHROOM PICKER [facility] Calcium 9.9 8.8 - 10.2 mg/dL 06/24/2023 6:12 PM MUSHROOM PICKER [facility] Glucose 156(H) 70 - 99 mg/dL 06/24/2023 6:12 PM MUSHROOM PICKER [facility] Blood BLOOD SPECIMEN / Unknown Venipuncture / Unknown 06/23/2023 3:28 PM MUSHROOM PICKER 06/23/2023 3:34 PM MUSHROOM PICKER Dyan Fuentes MD LAB - BLOOD ORDER LENA [facility] Lab [address] [facility], [address] [place] [phone], [facility] [phone] documented in this encounter Visit Diagnoses Diagnosis [...] Total Score: 7 06/23/20 23 1:54 PM MUSHROOM PICKER documented as of this encounter Care Teams Md Ophthalmologist Relationship Specialty [place] [address] [place] [address] PCP - General Family Medicine 05/18/22 Jovany Gonzalez MD [facility] [address] [facility] [address] [place], [place] [address] Orthopedics 02/15/17 Satci Woodward, ESCROW AGENT [place] [address] [place], [place] [phone] Nurse Practitioner Nurse Practitioner Psych/Mental Health 05/10/17 Reanna Smith, RD [place] [address] [place], [place] [phone] Diet Supervisor Dietitian, Registered 07/25/19 Roshni Nascimento, RN Personal Advocate & Liaison (PAL) Family Medicine 08/18/20 Kiet Swain MD [address] [place] [phone] Referring Physician Psychiatry 09/19/20 Winsome Pike APRN MACHINE COMPOSITOR [address] [place] [address] Nurse Practitioner Psychiatry 09/19/20 Tori Hines, [facility] [address] [place] [address] [phone] It Technical Architect It Technical Architect - Clinical 09/19/20 Miranda Queen, [facility] [address] [place] [address] Pharmacist Pharmacist 11/12/20 Marisel Armando MD [address] [place] [address] [phone] Gastroenterology 02/05/21 Wesley Barrett MD [address] [facility] [address] [place] [address] Assigned Neuroscience Provider 05/10/21 [place] [address] [place] [address] Assigned PCP 05/15/22 Katiana Read MD [address] [place] [address] Assigned Endocrinology Provider 06/19/22 [place] [address] [place] [address] Nurse Practitioner Nurse Practitioner 10/18/22 Elham Stack, [facility] [address] [place] [address] Pharmacist Pharmacist 10/19/22 Aubrey Jones MD [address] [place] [id number] Cardiovascular Disease 03/28/23 Blanquita Morales Diet Supervisor Diabetes Education 04/25/23 Aubrey Jones MD [address] [place] [address] Assigned Heart and Vascular Provider 05/07/23 documented as of this encounter
--- OUTSIDE RECORDS SUMMARY | 2023-08-03 12:37 | XMS_ITS | Encounter Summary ---
Author Name Unknown Organization [place] Address [address] [place] [address]. [place] [address] Care Team Providers Care Youth Accommodation Support Worker Name Role Phone Jovany Gonzalez MD Unavailable CrissyStaci jeong RADIOLOGY EQUIPMENT SERVICER Unavailable Reanna Smith RD Unavailable [phone] Roshni Nascimento RN Unavailable Unavailable Kiet Swain MD Unavailable [phone] Winsome Pike APRN ALARM SERVICE TECHNICIAN Unavailable [phone] Tori Hines [facility] Unavailable Miranda Queen [facility] Unavailable Unavailable Marisel Armando MD Unavailable Wesley Barrett MD Unavailable [phone] Dyan Fuentes MD Primary Care Provider [phone] Dyan Fuentes MD Unavailable [phone] Katiana Read MD Unavailable [phone] Mary Del Cid RADIOLOGY EQUIPMENT SERVICER Unavailable [phone] Elham Stack [facility] Unavailable [phone] Aubrey Jones MD Unavailable [phone] Blanquita Morales Unavailable Unavailable Aubrey Jones MD Unavailable [phone] Reason for Visit * Reason Onset Date Comments Opioid Refill 07/18/2023 buprenorphine HC l-naloxone HCl (SUBOXONE) 4-1 MG per film Encounter Details Date Type Department Care Team (Late st Contact Info) Description 07/18/2023 Telephone [facility] Pain Management [place] [address] [facility] [address] [place] [address] [place] [address] [address] [place] [phone] Opioid Refill (buprenorphine HCl-naloxone HCl (SUBOXONE) 4-1 [...] How often do you attend yazdanism or christian serv ices? Never 06/20/2023 Do you belong [...] Answer Date Recorded PHQ-2 Score 1 06/23/2023 [facility] Occupat ional Health - Occupational [...] Blanquita Perera RN - 07/19/2023 12:54 PM COST ESTIMATOR Closing encounter. Has appt today ESTIMATOR * Telephone Encounter - Blanquita Perera RN - 07/18/2023 1:42 PM CST ESTIMATOR * Telephone Encounter - Herlinda Beintes - 07/18/2023 1:25 PM CST M [facility] Call Center Phone Message May a detailed message be left on voicemail: yes Reason for Call: Medication Refill Request Has the patient contacted the pharmacy for the refill? Yes Name of medication being requested: buprenorphine HCl-naloxone HCl (SUBOXONE) 4-1 MG per film Provider who prescribed the medication: Mary Del Cid NP Pharmacy: [facility] - [address] Date medication is needed: 07/25/2023 Action Taken: Message routed to: Other: [facility] Pain Travel Screening: Not Applicable ESTIMATOR documented in this encounter Plan of Treatment Upcoming Encounters Date Type Department Care Team (Late st Contact Info) Description 08/18/2023 3:00 PM COST ESTIMATOR Office Visit [facility] [address] [place] [address] Katiana Read MD [address] [place] [address] documented as of this encounter Goals Goal [...] Total Score: 7 06/23/20 23 1:54 PM COST ESTIMATOR documented as of this encounter Care Teams Youth Accommodation Support Worker Relationship Specialty [place] [address] [place] [address] PCP - General Family Medicine 05/18/22 Jovany Gonzalez MD [facility] [address] [facility] [address] [place] [address] Orthopedics 02/15/17 Staci Woodward, RADIOLOGY EQUIPMENT SERVICER [place] [address] [place], [place] [address] Nurse Practitioner Nurse Practitioner Psych/Mental Health 05/10/17 Reanna Smith, RD [place] [address] [place] [address] Wastewater Project Manager Dietitian, Registered 07/25/19 Roshni Nascimento, RN Personal Advocate & Liaison (PAL) Family Medicine 08/18/20 Kiet Swain MD [address] [place] [phone] Referring Physician Psychiatry 09/19/20 Winsome Pike APRN ALARM SERVICE TECHNICIAN [address] [place] [address] [phone] Nurse Practitioner Psychiatry 09/19/20 Tori Hines, [facility] [address] [place] [address] [phone] Payroll Lead Payroll Lead - Clinical 09/19/20 Miranda Queen [facility] [address] [place] [address] Pharmacist Pharmacist 11/12/20 Marisel Armando MD [address] [place] [address] Gastroenterology 02/05/21 Wesley Barrett MD [address] [place] [address] 96 [place], [place] 97[address] Assigned Neuroscience Provider 05/10/21 [place] [address] [place] [address] Assigned PCP 05/15/22 Katiana Read MD [address] [place] [address] Assigned Endocrinology Provider 06/19/22 [place] [address] [place] [address] Nurse Practitioner Nurse Practitioner 10/18/22 Elham Stack, [facility] [address] [place] [address] Pharmacist Pharmacist 10/19/22 Aubrey Jones MD [address] [place] [address] Cardiovascular Disease 03/28/23 Blanquita Morales Wastewater Project Manager Diabetes Education 04/25/23 Aubrey Jones MD [address] [place] [address] Assigned Heart and Vascular Provider 05/07/23 documented as of this encounter
--- OUTSIDE RECORDS SUMMARY | 2023-08-03 12:37 | XMS_ITS | Encounter Summary ---
Author Name Unknown Organization [place] Address [address] [place] [address]. [place] [address] Care Team Providers Care Livery Car Driver Name Role Phone Jovany Gonzalez MD Unavailable CrissyStaci jeong COUNTY SUPERVISOR Unavailable Reanna Smith RD Unavailable [phone] Roshni Nascimento RN Unavailable Unavailable Kiet Swain MD Unavailable [phone] Winsome Pike APRN LOFTER Unavailable [phone] Tori Hines [facility] Unavailable Miranda Queen [facility] Unavailable Unavailable Marisel Armando MD Unavailable Wesley Barrett MD Unavailable [phone] Dyan Fuentes MD Primary Care Provider [phone] Dyan Fuentes MD Unavailable [phone] Katiana Read MD Unavailable [phone] Mary Del Cid COUNTY SUPERVISOR Unavailable + [phone] Elham Stack [facility] Unavailable [phone] Aubrey Jones MD Unavailable [phone] Blanquita Morales Unavailable Unavailable Aubrey Jones MD Unavailable [phone] Encounter Details Date Type Department Care Team [...] How often do you attend worship or spiritism serv ices? Never 06/20/2023 Do [...] Answer Date Recorded PHQ-2 Score 1 06/23/2023 [facility] Occupat ional Health - [...] Contact Info) Description 08/18/2023 3:00 PM SUPERVISOR HARD CANDY Office Visit [facility] [address] [place] [phone] Katiana Read MD [address] [place] [address] documented as of this encounter Goals Goal [...] Score: 7 06/23/20 23 1:54 PM SUPERVISOR HARD CANDY documented as of this encounter Care Teams Livery Car Driver Relationship Specialty [place] [address] [place] [address] PCP - General Family Medicine 05/18/22 Jovany Gonzalez MD [facility] [address] [facility] [address] [place], [place] [address] Orthopedics 02/15/17 Staci Woodward, COUNTY SUPERVISOR [place] [address] [place], [place] [address] Nurse Practitioner Nurse Practitioner Psych/Mental Health 05/10/17 Reanna Smith, RD [place] [address] [place], [place] [phone] Shot Polisher Dietitian, Registered 07/25/19 Roshni Nascimento, RN Personal Advocate & Liaison (PAL) Family Medicine 08/18/20 Kiet Swain MD [address] [place] [address] [phone] Referring Physician Psychiatry 09/19/20 Winsome Pike APRN LOFTER [address] [place] [address] [phone] Nurse Practitioner Psychiatry 09/19/20 Tori Hines, [facility] [address] [place] [address] [phone] Cipher Expert Cipher Expert - Clinical 09/19/20 Miranda Queen [facility] [address] [place] [address] Pharmacist Pharmacist 11/12/20 Marisel Armando MD [address] [place], [place] 8[address] Gastroenterology 02/05/21 Wesley Barrett MD [address] [facility] [address] [place] [address] Assigned Neuroscience Provider 05/10/21 [place] [address] [place] [address] Assigned PCP 05/15/22 Katiana Read MD [address] [place] [address] Assigned Endocrinology Provider 06/19/22 [place] [address] [place] [address] Nurse Practitioner Nurse Practitioner 10/18/22 Elham Stack, [facility] [address] [place] [address] Pharmacist Pharmacist 10/19/22 Aubrey Jones MD [address] [place] [address] Cardiovascular Disease 03/28/23 Blanquita Morales Shot Polisher Diabetes Education 04/25/23 Aubrey Jones MD [address] [place] [address] Assigned Heart and Vascular Provider 05/07/23 documented as of this encounter
--- OUTSIDE RECORDS SUMMARY | 2023-08-03 12:37 | XMS_ITS | Encounter Summary ---
Author Name Unknown Organization [facility] Address [address] [place] [address]. [place] [address] Care Team Providers Care Poke In Name Role Phone Jovany Gonzalez MD Unavailable [phone] CrissyStaci jeong RN CIRCULATING Unavailable [phone] Unavailable [phone] Roshni Nascimento RN Unavailable Unavailable Kiet Swain MD Unavailable [phone] Winsome Pike APRN ICE PLATFORM SUPERVISOR Unavailable +[phone] Tori Hines [facility] Unavailable Miranda Queen [facility] Unavailable Unavailable Marisel Armando MD Unavailable Wesley Barrett MD Unavailable [phone] Dyan Fuentes MD Primary Care Provider [phone] Dyan Fuentes MD Unavailable [phone] Katiana Read MD Unavailable [phone] Mary Del Cid RN CIRCULATING Unavailable + [phone] Elham Stack [facility] Unavailable [phone] Aubrey Jones MD Unavailable [phone] Blanquita Morales Unavailable Unavailable Aubrey Jones MD Unavailable [phone] Encounter Details Date Type Department Care Team [...] week 06/20/2023 How often do you attend zoroastrianism or advent serv ices? Never 06/20/2023 Do [...] Answer Date Recorded PHQ-2 Score 2 05/12/2023 [facility] - Occupational [...] st Contact Info) Description 08/18/2023 3:00 PM RN CARDIAC REHAB Office Visit [facility] [address] [place] [phone] Katiana Read MD [address] [place] [address] documented as of this encounter Goals Goal [...] documented as of this encounter Care Teams Poke In Relationship Specialty [place] [address] [place] [address] PCP - General Family Medicine 05/18/22 Jovany Gonzalez MD [facility] [address] [facility] [address] [place], [place] [address] Orthopedics 02/15/17 Staci Woodward, RN CIRCULATING [place] [address] [place], [place] [phone] Nurse Practitioner Nurse Practitioner Psych/Mental Health 05/10/17 Reanna Smith, RD [place] [address] [place], [place] [phone] Wine Consultant Dietitian, Registered 07/25/19 Roshni Nascimento, RN Personal Advocate & Liaison (PAL) Family Medicine 08/18/20 Kiet Swain MD [address] [place] [address] 772604 Referring Physician Psychiatry 09/19/20 Winsome Pike APRN ICE PLATFORM SUPERVISOR [address] [place] [address] Nurse Practitioner Psychiatry 09/19/20 Tori Hines, [facility] [address] [place] [address] Pension Manager Pension Manager - Clinical 09/19/20 Miranda Queen [facility] [address] [place] [address] Pharmacist Pharmacist 11/12/20 Marisel Armando MD [address] [place] [address] [phone] Gastroenterology 02/05/21 Wesley Barrett MD [address] [facility] [address] [place] [address] Assigned Neuroscience Provider 05/10/21 [place] [address] [place] [address] Assigned PCP 05/15/22 Katiana Read MD [address] [place] [address] Assigned Endocrinology Provider 06/19/22 [place] [address] [place] [address] Nurse Practitioner Nurse Practitioner 10/18/22 Elham Stack, [facility] [address] [place] [address] Pharmacist Pharmacist 10/19/22 Aubrey Jones MD [address] [place] [address] Cardiovascular Disease 03/28/23 Blanquita Morales Wine Consultant Diabetes Education 04/25/23 Aubrey Jones MD [address] [place] [address] Assigned Heart and Vascular Provider 05/07/23 documented as of this encounter
--- OUTSIDE RECORDS SUMMARY | 2023-08-03 12:37 | XMS_ITS | Encounter Summary ---
Author Name Unknown Organization [place] Address [address] [place] [address]. [place] [address] Care Team Providers Care Water Control Supervisor Name Role Phone Jovany Gonzalez MD Unavailable [phone] CrissyStaci jeong FURNACE FILLER Unavailable [phone] Unavailable [phone] Roshni Nascimento RN Unavailable Unavailable Kiet Swain MD Unavailable [phone] Winsome Pike APRN RESIDENTIAL HOUSEKEEPER Unavailable [phone] Tori Hines [facility] Unavailable Miranda Queen [facility] Unavailable Unavailable Marisel Armando MD Unavailable Wesley Barrett MD Unavailable [phone] Dyan Fuentes MD Primary Care Provider [phone] Dyan Fuentes MD Unavailable [phone] Katiana Read MD Unavailable [phone] Mary Del Cid FURNACE FILLER Unavailable + [phone] Elham Stack [facility] Unavailable [phone] Aubrey Jones MD Unavailable [phone] Blanquita Morales Unavailable Unavailable Aubrey Jones MD Unavailable [phone] Encounter Details Date Type Department Care Team [...] week 06/20/2023 How often do you attend confucianism or alevism serv ices? Never 06/20/2023 Do you belong to any clubs o r organizations such as confucianism groups, unions, fraternal or athletic groups, or [...] Date Recorded PHQ-2 Score 1 06/23/2023 [facility] of Occupat ional Health - Occupational [...] st Contact Info) Description 08/18/2023 3:00 PM CUSTOMER SERVICE DISPATCHER Office Visit [facility] [address] [place] [phone] Katiana Read MD [address] [place] [address] documented as of this encounter Goals Goal [...] Needed to Optimize Self-Care Behaviors Balnquita Stuart Taking Medication - patient is consistently [...] Total Score: 7 06/23/20 23 1:54 PM CUSTOMER SERVICE DISPATCHER documented as of this encounter Care Teams Water Control Supervisor Relationship Specialty [place] [address] [place] [address] PCP - General Family Medicine 05/18/22 Jovany Gonzalez MD [facility] [address] [facility] [address] [place], [place] [address] Orthopedics 02/15/17 Staci Woodward, FURNACE FILLER [place] [address] [place], [place] [address] Nurse Practitioner Nurse Practitioner Psych/Mental Health 05/10/17 Reanna Smith, RD [place] [address] [address] [place], [place] [address] Freelance Patternmaker Dietitian, Registered 07/25/19 Roshni Nascimento, RN Personal Advocate & Liaison (PAL) Family Medicine 08/18/20 Kiet Swain MD [address] [place] [id number] Referring Physician Psychiatry 09/19/20 Winsome Pike APRN RESIDENTIAL HOUSEKEEPER [address] [place] [address] [phone] Nurse Practitioner Psychiatry 09/19/20 Tori Hines, [facility] [address] [place] [address] [phone] Borematic Machine Operator Borematic Machine Operator - Clinical 09/19/20 Miranda Queen [facility] [address] [place] [address] Pharmacist Pharmacist 11/12/20 Marisel Armando MD [address] [place], [place] [address] Gastroenterology 02/05/21 Wesley Barrett MD [address] [facility] [address] [place] [address] Assigned Neuroscience Provider 05/10/21 [place] [address] [place] [address] Assigned PCP 05/15/22 Katiana Read MD [address] [place] [address] Assigned Endocrinology Provider 06/19/22 [place] [address] [place] [address] Nurse Practitioner Nurse Practitioner 10/18/22 Elham Stack, [facility] [address] [place] [address] Pharmacist Pharmacist 10/19/22 Aubrey Jones MD [address] [place] [address] Cardiovascular Disease 03/28/23 Blanquita Morales Freelance Patternmaker Diabetes Education 04/25/23 Aubrey Jones MD [address] [place] [address] Assigned Heart and Vascular Provider 05/07/23 documented as of this encounter
--- OUTSIDE RECORDS SUMMARY | 2023-08-03 12:37 | XMS_ITS | Encounter Summary ---
Author Name Unknown Organization [place] Address [address] [place] [address]. [place] [address] Care Team Providers Care Catalyst Operator Name Role Phone Jovany Gonzalez MD Unavailable CrissyStaci jeong INVESTIGATOR UTILITY BILL COMPLAINTS Unavailable [phone] Unavailable [phone] Roshni Nascimento RN Unavailable Unavailable Kiet Swain MD Unavailable [phone] Winsome Pike APRN DETAIL MAKER AND FITTER Unavailable [phone] Tori Hines [facility] Unavailable Miranda Queen [facility] Unavailable Unavailable Marisel Armando MD Unavailable Wesley Barrett MD Unavailable [phone] Dyan Fuentes MD Primary Care Provider [phone] Dyan Fuentes MD Unavailable [phone] Katiana Read MD Unavailable [phone] Mary Del Cid INVESTIGATOR UTILITY BILL COMPLAINTS Unavailable + [phone] Elham Stack [facility] Unavailable [phone] Aubrey Jones MD Unavailable [phone] Blanquita Morales Unavailable Unavailable Aubrey Jones MD Unavailable [phone] Encounter Details Date Type Department Care Team (Late st Contact Info) Description 07/12/2023 MyC Medical Advice [facility] [address] [place] [phone] Chidi aZbala Social History Tobacco Use Types Packs/Day Years [...] How often do you attend hindu or orthodoxy serv ices? Never 06/20/2023 Do you belong [...] Answer Date Recorded PHQ-2 Score 1 06/23/2023 [facility] Occupat ional Health - Occupational Stress [...] st Contact Info) Description 08/18/2023 3:00 PM GRADING CLERK Office Visit [place] [address] [place] [address] Katiana Read MD [address] [place] [address] documented as of this encounter Goals Goal [...] Total Score: 7 06/23/20 23 1:54 PM GRADING CLERK documented as of this encounter Care Teams Catalyst Operator Relationship Specialty [place] [address] [place] [address] PCP - General Family Medicine 05/18/22 Jovany Gonzalez MD [facility] [address] [facility] [address] [place], [place] [address] Orthopedics 02/15/17 Staci Woodward, INVESTIGATOR UTILITY BILL COMPLAINTS [place] [address] [place], [place] [phone] Nurse Practitioner Nurse Practitioner Psych/Mental Health 05/10/17 Reanna Smith, RD [facility] [address] [place], [place] [phone] Wood Barrel Reconditioner Dietitian, Registered 07/25/19 Roshni Nascimento, RN Personal Advocate & Liaison (PAL) Family Medicine 08/18/20 Kiet Swain MD [address] [place] [phone] Referring Physician Psychiatry 09/19/20 Winsome Pike APRN DETAIL MAKER AND FITTER [address] [place] [address] Nurse Practitioner Psychiatry 09/19/20 Tori Hines, [facility] [address] [place] [address] Watermelon Harvesting Supervisor Watermelon Harvesting Supervisor - Clinical 09/19/20 Miranda Queen [facility] [address] [place] [address] Pharmacist Pharmacist 11/12/20 Marisel Armando MD [address] [place] [address] Gastroenterology 02/05/21 Wesley Barrett MD [address] [facility] [address] [place] [address] Assigned Neuroscience Provider 05/10/21 [place] [address] [place] [address] Assigned PCP 05/15/22 Katiana Read MD [address] [place] [address] Assigned Endocrinology Provider 06/19/22 [place] [address] [place] [address] Nurse Practitioner Nurse Practitioner 10/18/22 Elham Stack, [facility] [address] [place] [address] Pharmacist Pharmacist 10/19/22 Aubrey Jones MD [address] [place] [address] Cardiovascular Disease 03/28/23 Blanquita Morales Wood Barrel Reconditioner Diabetes Education 04/25/23 Aubrey Jones MD [address] [place] [address] Assigned Heart and Vascular Provider 05/07/23 documented as of this encounter
--- OUTSIDE RECORDS SUMMARY | 2023-08-03 12:37 | XMS_ITS | Encounter Summary ---
Author Name Unknown Organization [place] Address [address] [place] [address]. [place] [address] Care Team Providers Care Signaling Design Engineer Name Role Phone Jovany Gonzalez MD Unavailable CirssyStaci jeong CONSTRUCTION FIELD ENGINEER Unavailable [phone] Unavailable [phone] Roshni Nascimento RN Unavailable Unavailable Kiet Swain MD Unavailable [phone] Winsome Pike APRN WOODWIND INSTRUMENTS INSPECTOR Unavailable [phone] Tori Hines [facility] Unavailable Miranda Queen [facility] Unavailable Unavailable Marisel Armando MD Unavailable Wesley Barrett MD Unavailable [phone] Dyan Fuentes MD Primary Care Provider [phone] Dyan Fuentes MD Unavailable [phone] Katiana Read MD Unavailable [phone] Mary Del Cid CONSTRUCTION FIELD ENGINEER Unavailable + [phone] Elham Stack [facility] Unavailable [phone] Aubrey Jones MD Unavailable [phone] Blanquita Morales Unavailable Unavailable Aubrey Jones MD Unavailable [phone] Reason for Referral * Consultation (Routine: Next available opening) - Pending Review Specialty Diagnoses / Procedures Referred By Jose R t Referred To Contact Diabetes Education Diagnoses Type 2 diabetes mellitus without complication, without long-term current use of insulin (H) Chronic kidney disease, stage 3a (H) Lenka Parks PA-C [address] [place] [address] Referral ID Status Reason Start Date Expiration Date V isits Requested Visits Authorized [id number] Pending Review 07/12/2023 07/11/2024 1 1 Question Answer Last HgbA1c: A1C 8.9 06/23/2023 Type of Training: Previous Diagnosis Diabetes Type: Type 2 Diabetes Co-Morbidities: Kidney Disease A1C Goal: <7.0 Medical Nutrition Therapy (MNT) for Diabetes Previous Diagnosis: Annual Follow-up MNT - 2 hours Diabetes Education Topics: Comprehensive Knowledge Assessment and Instruction Special Educational Needs: None, Additional Insulin Training Scheduling Instructions: [facility] will call you to coordinate your care as prescribed by your provider. If you don't hear from a international account representative within 2 business days, please call [...] and [id number]) and Medical Nutrition Therapy (Codes 76582 and 31159) benefits and ask which blood glucose monitor brands are covered by your plan. Please bring the following with you to your appointment: 1. List of current medications 2. List of Blood Glucose Monitor brands that are covered by your insurance plan 3. Blood Glucose Monitor and log book 4. Food records for the 3 days prior to your visit [facility] will call you to coordinate your care as prescribed by your provider. If you don't hear from a international account representative within 2 business days, please call TY CLERK Reason for Visit * Reason Comments Diabetes Thyroid Disease Encounter Details Date Type Department Care Team (Late st Contact Info) Description 07/12/2023 10:30 AM DEPUTY CLERK Office Visit [facility] [address] [place] [address] Lenka Parks PA-C [address] [place] [address] Type 2 diabetes mellitus without [...] week 06/20/2023 How often do you attend anabaptist or amish serv ices? Never 06/20/2023 Do you belong to any clubs o r organizations such as anabaptist groups, unions, fraternal or athletic groups, or [...] Answer Date Recorded PHQ-2 Score 1 06/23/2023 [facility] - [facility]ational Stress Questionnaire [...] Comments Blood Pressure 136/86 07/12/2023 10:24 AM DEPUTY CLERK Pulse 67 07/12/2023 10:24 AM DEPUTY CLERK Temperature 37.1 ??C (98.8 ??F) 07/12/2023 1 0:24 AM DEPUTY CLERK Respiratory Rate 20 07/12/2023 10:2 4 AM DEPUTY CLERK Oxygen Saturation 95% 07/12/2023 10: 24 AM DEPUTY CLERK Inhaled Oxygen Concentration - - Weight 110.1 kg (242 lb 12.8 oz) 2023 10:24 AM DEPUTY CLERK Height 172.7 cm (5' 7.99) 07/12/2023 1 0:24 AM DEPUTY CLERK Body Mass Index 36.93 07/12/2023 10:24 AM DEPUTY CLERK documented in this encounter Progress Notes * [...] hypothyroidism. I have reviewed Care Everywhere including [facility], [facility], [facility] , [facility], [place] lab reports, imaging reports and provider notes [...] days 180 tablet 3 Continuous Blood Gluc Burring Machine Operator (DEXCOM G6 MOTION PICTURE SET WORKER) ANITA USE DAILY 1 each 0 Continuous [...] mouth daily (with breakfast) 100 tablet 1 Ddfcrrkecrl-Qqdeoytxt-Xstsvqsbxn (TRELEGY ELLIPTA) 200-62.5-25 MCG/ACT oral inhaler Inhale [...] 3 naloxone (NARCAN) 4 MG/0.1ML nasal spray [place] 1 spray (4 mg) into one nostril alternating nostrilsonce as needed for opioid reversal 0.2 mL 0 nitroGLYcerin (NITROSTAT) 0.[address] 1 tablet (0.4 mg) under the tongue every 5minutes as needed for chest pain 25 tablet 0 nystatin (MYCOSTATIN) 680669 UNIT/GM external ointment Apply topically 2 times [...] were unable to download her Dexcom sensor TY CLERK documented in this encounter Miscellaneous Notes * Result Encounter Note - Katiana Read MD - 07/12/2023 10:30 AM DEPUTY CLERK Labs/results noted. Please see telephone encounter dated 07/14/2023. TY CLERK documented in this encounter Plan of Treatment Upcoming Encounters Date Type Department Care Team (Late st Contact Info) Description 08/18/2023 3:00 PM DEPUTY CLERK Office Visit [facility] [address] [facility] [address] [place] [address] Katiana Read MD [address] [place], [place] [address] Scheduled Referrals Name Type Priority Associated Diagnoses Orde r Schedule Adult Diabetes Education Cell Feed Department Supervisor Referral Referral Routine: Next available opening Type [...] Diagnosis Comments TSH Routine 07/12/2023 11:07 AM DEPUTY CLERK Postablative hypothyroidism T4 FREE Routine 07/12/2023 11:07 AM DEPUTY CLERK Postablative hypothyroidism documented in this encounter Results * (ABNORMAL) T4, free (07/12/2023 11:07 AM DEPUTY CLERK) Free T4 0.53(L) 0.90 - 1.70 ng/dL 07/12/2023 10:35 PM DEPUTY CLERK [facility] Blood BLOOD SPECIMEN / Unknown Venipuncture / Unknown 07/12/2023 11:07 AM DEPUTY CLERK 07/12/2023 11:07 AM DEPUTY CLERK Lenka Parks PA-C LAB - BLOOD ORDERABL ES [facility] [place] [facility] [address] [facility] [address], [address] [place] [address], [facility] [phone] * (ABNORMAL) TSH (07/12/2023 11:07 AM DEPUTY CLERK) TSH 74.10(H) 0.30 - 4.20 uIU/mL 07/12/2023 10:35 PM DEPUTY CLERK [facility] Blood BLOOD SPECIMEN / Unknown Venipuncture / Unknown 07/12/2023 11:07 AM DEPUTY CLERK 07/12/2023 11:07 AM DEPUTY CLERK Lenka Parks PA-C LAB - BLOOD ORDERABL ES [facility] [address] [facility], [address] [place] [address], [facility] [phone] documented in this encounter Visit Diagnoses Diagnosis [...] Total Score: 7 06/23/20 23 1:54 PM DEPUTY CLERK documented as of this encounter Care Teams Signaling Design Engineer Relationship Specialty [place] [address] [place] [address] PCP - General Family Medicine 05/18/22 Jovany Gonzalez MD [facility] [address] [facility] [address] [place] [address] Orthopedics 02/15/17 CrissyStaci jeong NP [place] [address] [place] [address] Nurse Practitioner Nurse Practitioner Psych/Mental Health 05/10/17 Renana Smith, RD [place] [address] [place] [address] Child Welfare Caseworker Dietitian, Registered 07/25/19 Roshni Nascimento, RN Personal Advocate & Liaison (PAL) Family Medicine 08/18/20 Kiet Swain MD [address] [place] [address] [id number] Referring Physician Psychiatry 09/19/20 Winsome Pike APRN WOODWIND INSTRUMENTS INSPECTOR [address] [place] [address] Nurse Practitioner Psychiatry 09/19/20 Tori Hines, [facility] [place] [address] Beater Room Supervisor Beater Room Supervisor - Clinical 09/19/20 Miranda Queen [facility] [address] [place] [address] Pharmacist Pharmacist 11/12/20 Marisel Armando MD [address] [place] [address] Gastroenterology 02/05/21 Wesley Barrett MD [address] [place] [address] 96 [place] [address] Assigned Neuroscience Provider 05/10/21 [place] [address] [place] [address] Assigned PCP 05/15/22 Katiana Read MD [address] [facility] [address] [place] [address] Assigned Endocrinology Provider 06/19/22 [place] [address] [place] [address] Nurse Practitioner Nurse Practitioner 10/18/22 [facility] [address] [place] [address] Pharmacist Pharmacist 10/19/22 Aubrey Jones MD [address] [place] [address] Cardiovascular Disease 03/28/23 Blanquita Morales Child Welfare Caseworker Diabetes Education 04/25/23 Aubrey Jones MD [address] [place] [address] Assigned Heart and Vascular Provider 05/07/23 documented as of this encounter
--- OUTSIDE RECORDS SUMMARY | 2023-08-03 12:38 | XMS_ITS | Encounter Summary ---
Author Name Unknown Organization [facility] Address [address] [place] [address]. [place] [address] Care Team Providers Care Observer Gravity Prospecting Name Role Phone Jovany Gonzalez MD Unavailable CrissyStaci jeong CDA TEACHER Unavailable [phone] Unavailable [phone] Roshni Nascimento RN Unavailable Unavailable Kiet Swain MD Unavailable [phone] Winsome Pike APRN GAMING HOST Unavailable [phone] Tori Hines [facility] Unavailable Miranda Queen [facility] Unavailable Unavailable Marisel Armando MD Unavailable Wesley Barrett MD Unavailable [phone] Dyan Fuentes MD Primary Care Provider [phone] Dyan Fuentes MD Unavailable [phone] Katiana Read MD Unavailable +[phone] Mary Del Cid CDA TEACHER Unavailable + [phone] Elham Stack [facility] Unavailable [phone] Aubrey Jones MD Unavailable [phone] Blanquita Morales Unavailable Unavailable Aubrey Jones MD Unavailable [phone] Reason for Visit * Rehab Therapy Physical Therapy (Routine) - Closed Specialty Diagnoses / Procedures Referred By Jose R t Referred To Contact Physical Therapy Diagnoses Chronic pain syndrome S/P lumbar laminectomy S/P cervical spinal fusion Mary Del Cid, RAFA[address] [address] [place] [address] [facility] Sports & Physical Therapy - [facility] [address] [facility] [address] [place] [address] Referral ID Status Reason Start Date Expiration Date Visits Re quested Visits Authorized [id number] Closed 05/04/2023 07/10/2023 365 365 Encounter Details Date Type Department Care Team (Latest Contact Info) Description 05/31/2023 4:00 PM CITY DISPATCH SUPERVISOR Therapy Visit [facility] Rehabilitation Services [facility] [address] [facility] [address] [place], [place] [address] [place] [address] [address] Chronic pain syndrome (Primary Dx) Social History [...] week 06/20/2023 How often do you attend quaker or catholic serv ices? Never 06/20/2023 Do you [...] Answer Date Recorded PHQ-2 Score 1 06/23/2023 [facility] - Occupational Stress Questionnaire Answer Date Recorded [...] st Contact Info) Description 08/18/2023 3:00 PM CITY DISPATCH SUPERVISOR Office Visit [facility] [address] [facility] [address] [place] [address] Katiana Read MD [address] [facility] [address] [place] [address] documented as of this encounter [...] documented as of this encounter Care Teams Observer Gravity Prospecting Relationship Specialty [place] [address] [place] [address] PCP - General Family Medicine 05/18/22 Jovany Gonzalez MD [facility] [address] [facility] [address] [place], [place] [address] Orthopedics 02/15/17 Staci Woodward NP [place] [address] [place], [place] [address] Nurse Practitioner Nurse Practitioner Psych/Mental Health 05/10/17 Reanna Smith, [facility] [address] [place], [place] [address] Clerical Administrative Assistant Dietitian, Registered 07/25/19 Roshni Nascimento RN Personal Advocate & Liaison (PAL) Family Medicine 08/18/20 Kiet Swain MD [address] [facility] [address] [place] [address] Referring Physician Psychiatry 09/19/20 Winsome Pike APRN GAMING HOST [address] [place], [place] [address] Nurse Practitioner Psychiatry 09/19/20 Tori Hines, [facility] [address]50 [place] [address] Director Of Home Health Services Director Of Home Health Services - Clinical 09/19/20 Miranda Queen [facility] [address] [place] [address] Pharmacist Pharmacist 11/12/20 Marisel Armando MD 909 [place], [place] [address] Gastroenterology 02/05/21 Wesley Barrett MD [address] [facility] [address] [place], [place] [address] Assigned Neuroscience Provider 05/10/21 [place] [address] [place] [address] Assigned PCP 05/15/22 Katiana Read MD [address] [facility] 200 [place], [place] [address] Assigned Endocrinology Provider 06/19/22 [place] [address] [place] [address] Nurse Practitioner Nurse Practitioner 10/18/22 Elham Stack, [facility] [address] [place] [address] Pharmacist Pharmacist 10/19/22 Aubrey Jones MD [address] [place] [address] Cardiovascular Disease 03/28/23 Blanquita Morales Clerical Administrative Assistant Diabetes Education 04/25/23 Aubrey Jones MD [address] [place] [id number] Assigned Heart and Vascular Provider 05/07/23 documented as of this encounter
--- OUTSIDE RECORDS SUMMARY | 2023-08-03 12:38 | XMS_ITS | Encounter Summary ---
Author Name Unknown Organization [facility] Address [address] [place] [address]. [place] [address] Care Team Providers Care Wine Sales Representative Name Role Phone Jovany oGnzalez MD Unavailable CrissyStaci jeong KEEPER HEAD Unavailable [phone] Unavailable [phone] Roshni Nascimento RN Unavailable Unavailable Kiet Swain MD Unavailable [phone] Winsome Pike APRN CARDIOTHORACIC ICU RN Unavailable [phone] Tori Hines [facility] Unavailable Miranda Queen [facility] Unavailable Unavailable Marisel Armando MD Unavailable Wesley Barrett MD Unavailable [phone] Dyan Fuentes MD Primary Care Provider [phone] Dyan Fuentes MD Unavailable [phone] Katiana Read MD Unavailable [phone] Mary Del Cid KEEPER HEAD Unavailable + [phone] Elham Stack [facility] Unavailable [phone] Aubrey Jones MD Unavailable [phone] Blanquita Morales Unavailable Unavailable Aubrey Jones MD Unavailable +[phone] Encounter Details Date Type Department Care Team [...] week 10/16/2021 How often do you attend [facility] or synagogue services? 1 to 4 times per year 10/16/2021 Do you belong to any clubs o r organizations such as jewish groups, unions, fraternal or athletic groups, or [...] Answer Date Recorded PHQ-2 Score 2 05/12/2023 [facility] of Occupat [...] st Contact Info) Description 08/18/2023 3:00 PM GASOLINE POWER SHOVEL OPERATOR Office Visit [facility] [address] [place] [address] Katiana Read MD [address] [place] [address] documented as of this encounter Goals Goal [...] documented as of this encounter Care Teams Wine Sales Representative Relationship Specialty [place] [address] [place] [address] PCP - General Family Medicine 05/18/22 Jovany Gonzalez MD [facility] [address] [facility] [address] [place], [place] [address] Orthopedics 02/15/17 Staci Woodward, KEEPER HEAD [place] [address] [place], [place] [address] Nurse Practitioner Nurse Practitioner Psych/Mental Health 05/10/17 Reanna Smith, RD [place] [address] [place], [place] [phone] Valve Repairer Dietitian, Registered 07/25/19 Roshni Nascimento, RN Personal Advocate & Liaison (PAL) Family Medicine 08/18/20 Kiet Swain MD [address] [place] [id number] Referring Physician Psychiatry 09/19/20 Winsome Pike APRN CARDIOTHORACIC ICU RN [address] [place] [address] Nurse Practitioner Psychiatry 09/19/20 Tori Hines, [facility] [address] [place] [address] [phone] Harbor Engineer Harbor Engineer - Clinical 09/19/20 Miranda Queen [facility] [address] [place] [address] Pharmacist Pharmacist 11/12/20 Marisel Armando MD [address] [place] [id number] Gastroenterology 02/05/21 Wesley Barrett MD [address] [facility] [address] [place] [address] Assigned Neuroscience Provider 05/10/21 [place] [address] [place] [address] Assigned PCP 05/15/22 Katiana Read MD [address] [place], [place] [address] Assigned Endocrinology Provider 06/19/22 [place] [address] [place] [address] Nurse Practitioner Nurse Practitioner 10/18/22 Elham Stack, [facility] [address] [place] [address] Pharmacist Pharmacist 10/19/22 Aubrey Jones MD [address] [place] [address] Cardiovascular Disease 03/28/23 Blanquita Morales Valve Repairer Diabetes Education 04/25/23 Aubrey Jones MD [address] [place] [address] Assigned Heart and Vascular Provider 05/07/23 documented as of this encounter
--- OUTSIDE RECORDS SUMMARY | 2023-08-03 12:38 | XMS_ITS | Encounter Summary ---
Author Name Unknown Organization [facility] Address [address] [place] [address]. [place] [address] Care Team Providers Care Traffic Engineering Director Name Role Phone Jovany Gonzalez MD Unavailable CrissyStaci jeong TRANSPORT COORDINATOR Unavailable [phone] Unavailable [phone] Roshni Nascimento RN Unavailable Unavailable Kiet Swain MD Unavailable [phone] Winsome Pike APRN CUSTOMER SERVICE ANALYST Unavailable [phone] Tori Hines [facility] Unavailable Miranda Queen [facility] Unavailable Unavailable Marisel Armando MD Unavailable Wesley Barrett MD Unavailable [phone] Dyan Fuentes MD Primary Care Provider [phone] Dyan Fuentes MD Unavailable [phone] Katiana Read MD Unavailable +[phone] Mray Del Cid TRANSPORT COORDINATOR Unavailable + [phone] Elham Stack [facility] Unavailable [phone] Aubrey Jones MD Unavailable [phone] Blanquita Morales Unavailable Unavailable Aubrey Jones MD Unavailable [phone] Encounter Details Date Type Department Care Team [...] week 10/16/2021 How often do you attend [facility] or hindu services? 1 to 4 times [...] Answer Date Recorded PHQ-2 Score 2 05/12/2023 [facility] [...] st Contact Info) Description 08/18/2023 3:00 PM ELECTROCARDIOGRAM TECHNICIAN Office Visit [facility] [address] [place] [phone] Katiana Read MD [address] [place] [address] documented as of this encounter Goals Goal [...] as of this encounter Care Teams Traffic Engineering Director Relationship Specialty [place] [address] [place] [address] PCP - General Family Medicine 05/18/22 Jovany Gonzalez MD [facility] [address] [facility] [address] [place], [place] [address] Orthopedics 02/15/17 Staci Woodward, TRANSPORT COORDINATOR [place] [address] [place], [place] [address] Nurse Practitioner Nurse Practitioner Psych/Mental Health 05/10/17 Reanna Smith, RD [facility] [address] [place], [place] [address] Environmental Professional Dietitian, Registered 07/25/19 Roshni Nascimento, RN Personal Advocate & Liaison (PAL) Family Medicine 08/18/20 Kiet Swain MD [address] [place] [id number] Referring Physician Psychiatry 09/19/20 Winsome Pike APRN CUSTOMER SERVICE ANALYST [address] [place] [address] Nurse Practitioner Psychiatry 09/19/20 Tori Hines, [facility] [address] [place] [address] Field Research Associate Field Research Associate - Clinical 09/19/20 [place] [address] [place] [address] Pharmacist Pharmacist 11/12/20 Marisel Armando MD 909 [place] [address] Gastroenterology 02/05/21 Wesley Barrett MD [address] [facility] [address] [place] [address] Assigned Neuroscience Provider 05/10/21 [place] [address] [place] [address] Assigned PCP 05/15/22 Katiana Read MD [address] [place] [address] Assigned Endocrinology Provider 06/19/22 [place] [address] [place] [address] Nurse Practitioner Nurse Practitioner 10/18/22 Elham Stack, [facility] 30[address] [place] [address] Pharmacist Pharmacist 10/19/22 Aubrey Jones MD [address] [place] [address] Cardiovascular Disease 03/28/23 Blanquita Morales Environmental Professional Diabetes Education 04/25/23 Aubrey Jones MD [address] [place] [address] Assigned Heart and Vascular Provider 05/07/23 documented as of this encounter
--- OUTSIDE RECORDS SUMMARY | 2023-08-03 12:38 | XMS_ITS | Encounter Summary ---
Author Name Unknown Organization [facility] Address [address] [place] [address]. [place] [address] Care Team Providers Care Donor Services Coordinator Name Role Phone Jovany Gonzalez MD Unavailable CrissyStaci jeong NURSERYMAN ASSISTANT Unavailable [phone] Unavailable [phone] Roshni Nascimento RN Unavailable Unavailable Kiet Swain MD Unavailable [phone] Winsome Pike APRN THEATER TECHNICIAN Unavailable [phone] Tori Hines [facility] Unavailable Miranda Queen [facility] Unavailable Unavailable Marisel Armando MD Unavailable Wesley Barrett MD Unavailable [phone] Dyan Fuentes MD Primary Care Provider [phone] Dyan Fuentes MD Unavailable [phone] Katiana Read MD Unavailable [phone] Maurice Cee NURSERYMAN ASSISTANT Unavailable + [phone] Elham Stack [facility] Unavailable [phone] uAbrey Jones MD Unavailable [phone] Blanquita Morales Unavailable Unavailable Aubrey Jones MD Unavailable [phone] Reason for Visit * Reason Onset Date Comments Opioid Refill 05/17/2023 buprenorphine HC l-naloxone HCl (SUBOXONE) 4-1 MG per film Encounter Details Date Type Department Care Team (Late st Contact Info) Description 05/17/2023 Refill [facility] [place] [address] [facility] [address] [place] [address] [place] [address] [place] [address] Opioid Refill (buprenorphine HCl-naloxone HCl (SUBOXONE) 4-1 [...] How often do you attend chur or zoroastrianism services? 1 to 4 times per year [...] Answer Date Recorded PHQ-2 Score 2 05/12/2023 [facility] [place] of Occupat ional Health - Occupational Stress [...] Maurice Cee NP - 05/17/2023 2:02 PM [facility] [place] Prescription Monitoring Program database was checked and prescription was e- prescribed to their preferred pharmacy. Encounter closed. Signed Prescriptions: Disp Refills buprenorphine HCl-naloxone HCl (SUBOXONE) *60 Film0 Sig: Place 0.5 Film under the tongue 4 times daily OK to fill and start 05/17/23 Authorizing Provider: MAURICE CEE NP [facility] * Telephone Encounter - Janine Argueta RN - 05/17/2023 1:57 PM CH[facility] Routing to provider to review medication prepped [...] Dr. Baxter, will be picking up today. [place] [facility] [place], [place] - [address] [facility] [address] Janine Raymundo RN Revenue Coordinator [facility] * Telephone Encounter - Sarah Villarreal - [...] Date of opioid agreement: 11/11/22 E-prescribe to pharmacy-[facility] - [address] Will route to [facility] for review and preparation of prescription(s). LER HAND * Telephone Encounter - Janine Argueta RN - 05/17/2023 1:11 PM CHILLER HAND Will route to [facility] for assistance with gathering opioid refill information. Janine Raymundo RN Revenue Coordinator [facility] LER HAND * Telephone Encounter - Isabel Munoz - 05/17/2023 12:58 PM CST [facility] Phone Message May a detailed message be left on voicemail: yes Reason for Call: Medication Refill Request Has the patient contacted the pharmacy for the refill? Yes Name of medication being requested: buprenorphine HCl-naloxone HCl (SUBOXONE) 4- 1 MG per film Provider who prescribed the medication: Maurice Cee NP Pharmacy: [facility] [address] Date medication is needed: 05/20/2023 Action Taken: Message routed to: Other: [place] [facility] Travel Screening: Not Applicable LER HAND documented in this encounter Plan of Treatment Upcoming Encounters Date Type Department Care Team (Late st Contact Info) Description 08/18/2023 3:00 PM CHILLER HAND Office Visit [facility] [address] [place] [address] Katiana Read MD [address] [place] [address] documented as of this encounter Goals Goal [...] documented as of this encounter Care Teams Donor Services Coordinator Relationship Specialty [place] [address] [place] [address] PCP - General Family Medicine 05/18/22 Jovany Gonzalez MD [facility] [address] [facility] [address] [place], [place] [address] Orthopedics 02/15/17 Staci Woodward, NURSERYMAN ASSISTANT [place] [address] [place], [place] [address] Nurse Practitioner Nurse Practitioner Psych/Mental Health 05/10/17 Reanna Smith, RD [facility] [address] [place], [place] [address] Wooden Boat Builder Dietitian, Registered 07/25/19 Roshni Nascimento, RN Personal Advocate & Liaison (PAL) Family Medicine 08/18/20 Kiet Swain MD [address] [place] [address] Referring Physician Psychiatry 09/19/20 Winsome Pike APRN THEATER TECHNICIAN [facility] [address] [address] Nurse Practitioner Psychiatry 09/19/20 Tori Hines [facility] [address] [place] [address] Senior Consumer Insights Consultant Senior Consumer Insights Consultant - Clinical 09/19/20 Miranda Queen [facility] [address] [place] [address] Pharmacist Pharmacist 5/5/21 Marisel Armando MD 909 [place] [address] Gastroenterology 02/05/21 Wesley Barrett MD [address] [facility] [address] [place] [address] Assigned Neuroscience Provider 05/10/21 [place] [address] [place] [address] Assigned PCP 05/15/22 Katiana Read MD [address] [place], [place] [address] Assigned Endocrinology Provider 06/19/22 [place] [address] [place] [address] Nurse Practitioner Nurse Practitioner 10/18/22 Elham Stack, [facility] [address] [place] [address] Pharmacist Pharmacist 10/19/22 Aubrey Jones MD [address] [place] [address] Cardiovascular Disease 03/28/23 Blanquita Morales Wooden Boat Builder Diabetes Education 04/25/23 Aubrey Jones MD [address] [place] [address] Assigned Heart and Vascular Provider 05/07/23 documented as of this encounter
--- OUTSIDE RECORDS SUMMARY | 2023-08-03 12:38 | XMS_ITS | Encounter Summary ---
Author Name Unknown Organization [facility] Address [address] [place] [address]. [place] [address] Care Team Providers Care Interactive Media Marketing Specialist Name Role Phone Jovany Gonzalez MD Unavailable [phone] CrissyStaci jeong DIE EQUIPMENT OPERATOR Unavailable Reanna Smith RD Unavailable [phone] Roshni Nascimento RN Unavailable Unavailable Kiet Swain MD Unavailable [phone] Winsome Pike APRN TUBE DISPATCHER Unavailable [phone] Tori Hines [facility] Unavailable Miranda Queen [facility] Unavailable Unavailable Marisel Armando MD Unavailable Wesley Barrett MD Unavailable [phone] Dyan Fuentes MD Primary Care Provider [phone] Dyan Fuentes MD Unavailable [phone] Katiana Read MD Unavailable [phone] Mary Del Cid DIE EQUIPMENT OPERATOR Unavailable + [phone] Elham Stack [facility] Unavailable [phone] Aubrey Jones MD Unavailable [phone] Blanquita Morales Unavailable Unavailable Aubrey Jones MD Unavailable [phone] Reason for Visit * Reason Onset Date Comments Progress 05/27/2023 Encounter Details Date Type Department Care Team (Late st Contact Info) Description 05/27/2023 Telephone [facility] [address] [place] [address] [place] [address] [place] [address] Progress Social History Tobacco Use [...] How often do you attend chur or restorationist services? 1 to 4 times per year 10/16/2021 Do you belong to any clubs o r organizations such as anglican groups, unions, fraternal or athletic groups, or [...] Answer Date Recorded PHQ-2 Score 2 05/12/2023 [facility] [employer] [place] of Occupat ional Health - Occupational Stress [...] replace 2 years ago. Will go to [facility] this week end for this Scheduled for AWV Roshni Nascimento RN OR MECHANICAL PROJECT ENGINEER documented in this encounter Plan of Treatment Upcoming Encounters Date Type Department Care Team (Late st Contact Info) Description 08/18/2023 3:00 PM SENIOR MECHANICAL PROJECT ENGINEER Office Visit [facility] [address] [facility] [address] [place] [address] Katiana Read MD [address] [place] [address] documented as of this encounter [...] documented as of this encounter Care Teams Interactive Media Marketing Specialist Relationship Specialty [place] [address] [place] [address] PCP - General Family Medicine 05/18/22 Jovany Gonzalez MD [facility] [address] [facility] 605 [place], [place] [address] Orthopedics 02/15/17 Staci Woodward DIE EQUIPMENT OPERATOR [facility] [address] [place], [place] [address] Nurse Practitioner Nurse Practitioner Psych/Mental Health 05/10/17 Reanna Smith, RD [facility] [address] [place] [address] Senior Production Supervisor Dietitian, Registered 07/25/19 Roshni Nascimento RN Personal Advocate & Liaison (PAL) Family Medicine 08/18/20 Kiet Swain MD [address] [facility] [place] [address] Referring Physician Psychiatry 09/19/20 Winsome Pike APRN CNP [address] [place] [address]2454 Nurse Practitioner Psychiatry 09/19/20 Tori Hines, [facility] [address] [place], [place] [address] Lay Out Machine Operator Lay Out Machine Operator - Clinical 09/19/20 Miranda Queen [facility] [address] [place] [address] Pharmacist Pharmacist 11/12/20 Marisel Armando MD 909 [place], [place] [address] Gastroenterology 02/05/21 Wesley Barrett MD 420 [facility] [address] [place], [place] [address] Assigned Neuroscience Provider 05/10/21 [place] [address] [place] [address] Assigned PCP 05/15/22 Katiana Read MD [address] [facility] 200 [place], [place] [address] Assigned Endocrinology Provider 06/19/22 Mary Del Cid, [place] [address] [place] [address] Nurse Practitioner Nurse Practitioner 10/18/22 Elham Stack, [facility] [address] [place] [address] Pharmacist Pharmacist 10/19/22 Aubrey Jones MD [address] [place] [address] Cardiovascular Disease 03/28/23 Blanquita Morales Senior Production Supervisor Diabetes Education 04/25/23 Aubrey Jones MD [address] [place] [address] Assigned Heart and Vascular Provider 05/07/23 documented as of this encounter
--- OUTSIDE RECORDS SUMMARY | 2023-08-03 12:38 | XMS_ITS | Encounter Summary ---
Author Name Unknown Organization [facility] Address [address] [place] [address]. [place] [address] Care Team Providers Care Power Project Manager Name Role Phone Jovany Gonzalez MD Unavailable [phone] CrissyStaci jeong SENIOR ENGINEERING ASSOCIATE Unavailable [phone] Unavailable [phone] Roshni Nascimento RN Unavailable Unavailable Kiet Swain MD Unavailable [phone] Winsome Pike APRN SCHOOL BUS DRIVER/TEACHER ASSISTANT Unavailable [phone] Tori Hines [facility] Unavailable Miranda Queen [facility] Unavailable Unavailable Marisel Armando MD Unavailable Wesley Barrett MD Unavailable [phone] Dyan Fuentes MD Primary Care Provider [phone] Dyan Fuentes MD Unavailable [phone] Katiana Read MD Unavailable [phone] Mary Del Cid SENIOR ENGINEERING ASSOCIATE Unavailable [phone] Elham Stack [facility] Unavailable [phone] Aubrey Jones MD Unavailable [phone] Blanquita Morales Unavailable Unavailable Encounter Details Date [...] How often do you attend chur or mandaeism services? 1 to 4 times [...] Score 2 11/25/2022 [facility]at ional [facility] - [...] in a mcc (including now)? No 10/16/2021 Adolescent Education Answer [...] st Contact Info) Description 08/18/2023 3:00 PM FUR COMBER Office Visit [facility] [address] [place] [address] Katiana Read MD [address] [place] [address] documented as of this encounter Goals Goal [...] Education Needed to Optimize Self-Care Behaviors No lBanquita Morales documented as of this encounter Visit Diagnoses Not on filedocumented in this encounter Additional Health Concerns Problem Noted Date Diagnosed Date HbA1C Not In Goal 04/25/2023 Diabetes Self-Management Edu cation Needed to Optimize Self-Care Behaviors 04/25/2023 Assessment Noted Time PHQ-9 Depression Total Score: 10 023 8:26 AM CDT documented as of this encounter Care Teams Power Project Manager Relationship Specialty [place] [address] [place] [address] PCP - General Family Medicine 05/18/22 Jovany Gonzalez MD [facility] [address] [facility] [address] [place] [address] Orthopedics 02/15/17 Staci Woodward, SENIOR ENGINEERING ASSOCIATE [place] [address] [place], [place] [address] Nurse Practitioner Nurse Practitioner Psych/Mental Health 05/10/17 Reanna Smith, RD [place] [address] [place], [place] [phone] Fibrous Wallboard Inspector Dietitian, Registered 07/25/19 Roshni Nascimento, RN Personal Advocate & Liaison (PAL) Family Medicine 08/18/20 Kiet Swain MD [address] [place] [address] [id number] Referring Physician Psychiatry 09/19/20 Winsome Pike APRN SCHOOL BUS DRIVER/TEACHER ASSISTANT [address] [place] [address] Nurse Practitioner Psychiatry 09/19/20 Tori Hines, [facility] [address] [place] [address] Medicaid Specialist Medicaid Specialist - Clinical 09/19/20 Miranda Queen [facility] [address] [place] [address] Pharmacist Pharmacist 11/12/20 Marisel Armando MD [address] [place] [address] Gastroenterology 02/05/21 Wesley Barrett MD [address] [facility] [address] [place] [address] Assigned Neuroscience Provider 05/10/21 [place] [address] [place] [address] Assigned PCP 05/15/22 Katiana Read MD [address] [facility] [address] [place] [address] Assigned Endocrinology Provider 06/19/22 [place] [address] [place] [address] Nurse Practitioner Nurse Practitioner 10/18/22 [facility] [address] [place] [address] Pharmacist Pharmacist 10/19/22 Aubrey Jones MD [address] [place] [address] Cardiovascular Disease 03/28/23 Blanquita Morales Fibrous Wallboard Inspector Diabetes Education 04/25/23 documented as of this encounter
--- OUTSIDE RECORDS SUMMARY | 2023-08-03 12:38 | XMS_ITS | Encounter Summary ---
Author Name Unknown Organization [facility] Address [address] [place] [address]. [place] [address] Care Team Providers Care Senior Pricing Analyst Name Role Phone Jovany Gonzalez MD Unavailable CrissyStaci jeong INFORMATION RECEPTIONIST Unavailable [phone] Unavailable [phone] Roshni Nascimento RN Unavailable Unavailable Kiet Swain MD Unavailable [phone] Winsome Pike APRN SAFETY MANAGER Unavailable [phone] Tori Hines [facility] Unavailable Miranda Queen [facility] Unavailable Unavailable Marisel Armando MD Unavailable Wesley Barrett MD Unavailable [phone] Dyan Fuentes MD Primary Care Provider [phone] Dyan Fuentes MD Unavailable [phone] Katiana Read MD Unavailable [phone] Maurice Cee INFORMATION RECEPTIONIST Unavailable + [phone] Elham Stack [facility] Unavailable [phone] Aubrey Jones MD Unavailable [phone] Blanquita Morales Unavailable Unavailable Aubrey Jones MD Unavailable [phone] Reason for Visit * Reason Onset Date Comments Opioid Refill 06/20/2023 buprenorphine HC l-naloxone HCl (SUBOXONE) 4-1 MG per film Encounter Details Date Type Department Care Team (Late st Contact Info) Description 06/20/2023 Refill [facility] [place] [address] [facility] [address] [place] [address] [place] [address] [place] [place] [address] Opioid Refill (buprenorphine HCl-naloxone HCl (SUBOXONE) 4-1 [...] week 06/20/2023 How often do you attend advent or buddhism serv ices? Never 06/20/2023 Do [...] Answer Date Recorded PHQ-2 Score 2 05/12/2023 [facility] of Occupat [...] Maurice Cee NP - 06/20/2023 3:19 PM RECORD CENTER COORDINATOR [place] Prescription Monitoring Program database was checked and prescription was e- prescribed to their preferred pharmacy. Encounter closed. Signed Prescriptions: Disp Refills buprenorphine HCl-naloxone HCl (SUBOXONE) *60 Film0 Sig: Place 0.5 Film under the tongue 4 times daily OK to fill and start 06/20/23 Authorizing Provider: MAURICE CEE NP RD CENTER COORDINATOR * Telephone Encounter - Janine Argueta RN - 06/20/2023 1:01 PM RECORD CENTER COORDINATOR Routing to provider to review medication prepped [...] per day with good control of symptoms. [facility] [place] - [address] [facility] [address] Janine Raymundo RN Rotary Peel Oven Tender [facility] Clinic RD CENTER COORDINATOR * Telephone Encounter - Gildardo Yeung - 06/20/2023 12:44 PM CST Received refill request for: buprenorphine HCl-naloxone HCl (SUBOXONE) 4-1 MG per film Last dispensed from pharmacy on 05/17/2023. Patient's last office/virtual visit by prescribing provider on 04/18/2023. Next office/virtual appointment scheduled for 07/19/2023. Last urine drug screen date 11/25/2022. Current opioid agreement on file? Yes Date of opioid agreement: 11/11/2022. E-prescribe to: [facility] - [address] Will route to [facility] for review and preparation of prescription(s). RD CENTER COORDINATOR * Telephone Encounter - Janine Argueta RN - 06/20/2023 11:30 AM RECORD CENTER COORDINATOR Will route to [facility] for assistance with gathering opioid refill information. Janine Raymundo RN Rotary Peel Oven Tender [facility] Pain Clinic RD CENTER COORDINATOR * Telephone Encounter - Blanquita Salguero - 06/20/2023 11:14 AM CST [facility] Center Phone Message May a detailed message be left on voicemail: yes Reason for Call: Medication Refill Request Has the patient contacted the pharmacy for the refill? Yes Name of medication being requested: buprenorphine HCl-naloxone HCl (SUBOXONE) 4- 1 MG per film Provider who prescribed the medication: [facility]: [facility] - [address] Date medication is needed: within a few days Action Taken: Other: Pain Travel Screening: Not Applicable RD CENTER COORDINATOR documented in this encounter Plan of Treatment Upcoming Encounters Date Type Department Care Team (Late st Contact Info) Description 08/18/2023 3:00 PM RECORD CENTER COORDINATOR Office Visit [facility] [address] [place] [phone] Katiana Read MD [address] [place] [address] documented as of this encounter Goals Goal [...] as of this encounter Care Teams Senior Pricing Analyst Relationship Specialty [place] [address] [place] [address] PCP - General Family Medicine 05/18/22 Jovany Gonzalez MD [facility] [address] [facility] [address] [place], [place] [address] Orthopedics 02/15/17 Staci Woodward, INFORMATION RECEPTIONIST [place] [address] [place], [place] [address] Nurse Practitioner Nurse Practitioner Psych/Mental Health 05/10/17 Reanna Smith, RD [place] [address] [place], [place] [address] Kiln Feeder Dietitian, Registered 07/25/19 Roshni Nascimento, RN Personal Advocate & Liaison (PAL) Family Medicine 08/18/20 Kiet Swain MD [address] [place] [address] [id number] Referring Physician Psychiatry 09/19/20 Winsome Pike APRN SAFETY MANAGER [address] [place] [address] [phone] Nurse Practitioner Psychiatry 09/19/20 Tori Hines, [facility] [address] [place] [address] [phone] Geography Department Chair Geography Department Chair - Clinical 09/19/20 Miranda Queen [facility] [address] [place] [address] Pharmacist Pharmacist 11/12/20 Marisel Armando MD [address] [place], [place] [address] Gastroenterology 02/05/21 Wesley Barrett MD [address] [facility] [address] [place] [address] Assigned Neuroscience Provider 05/10/21 [place] [address] [place] [address] Assigned PCP 05/15/22 Katiana Read MD [address] [place], [place] [address] Assigned Endocrinology Provider 06/19/22 [place] [address] [place] [address] Nurse Practitioner Nurse Practitioner 10/18/22 Elham Stack, [facility] [address] [place] [address] Pharmacist Pharmacist 10/19/22 Aubrey Jones MD [address] [place] [address] Cardiovascular Disease 03/28/23 Blanquita Morales Kiln Feeder Diabetes Education 04/25/23 Aubrey Jones MD [address] [place] [address] Assigned Heart and Vascular Provider 05/07/23 documented as of this encounter
--- OUTSIDE RECORDS SUMMARY | 2023-08-03 12:38 | XMS_ITS | Encounter Summary ---
Author Name Unknown Organization [facility] Address [address] [place] [address]. [place] [address] Care Team Providers Care Food Vendor Name Role Phone Jovany Gonzalez MD Unavailable CrissyStaci jeong SCHOOL ADMISSIONS REPRESENTATIVE Unavailable [phone] Unavailable [phone] Roshni Nascimento RN Unavailable Unavailable Kiet Swain MD Unavailable [phone] Winsome Pike APRN LOG RAFTER Unavailable [phone] Tori Hines [facility] Unavailable Miranda Queen [facility] Unavailable Unavailable Marisel Amrando MD Unavailable Wesley Barrett MD Unavailable [phone] Dyan Fuentes MD Primary Care Provider [phone] Dyan Fuentes MD Unavailable [phone] Katiana Read MD Unavailable [phone] Mary Del Cid SCHOOL ADMISSIONS REPRESENTATIVE Unavailable + [phone] Elham Stack [facility] Unavailable [phone] Aubrey Jones MD Unavailable [phone] Blanquita Morales Unavailable Unavailable Aubrey Jones MD Unavailable [phone] Reason for Visit * Rehab Therapy Physical Therapy (Routine) - Closed Specialty Diagnoses / Procedures Referred By Contac t Referred To Contact Physical Therapy Diagnoses Chronic pain syndrome S/P lumbar laminectomy S/[place] [address] [place] [address] [facility] [place] [id number] [place] [address] [address] [place] [address] Referral ID Status Reason Start Date Expiration Date Visits Re quested Visits Authorized [id number] Closed 05/04/2023 07/10/2023 365 365 Encounter Details Date Type Department Care Team (Latest Contact Info) Description 05/11/2023 3:40 PM CDT Therapy Visit [facility] Rehabilitation Services [facility] [address] [facility] [address] [place], [place] [address] Mary Del Cid, [place] [address] [place] [address] [place] [address] [phone] Chronic pain syndrome (Primary Dx) Social History [...] often do you attend chur ch or samaritan services? 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 Clinical Decision Making (Complexity): Clinical Presentation: Stable/Uncomplicated Clinical Presentation Rationale: based on medical and personal factors listed in PT evaluation Clinical Decision Making (Complexity): Low complexity PLAN OF CARE Treatment Interventions: Interventions: Gait Training, Neuromuscular Re-education, Therapeutic Activity, Therapeutic Exercise, Self-Care/Home Management, [facility] Goals PT Goal 1 Goal Identifier: walking [...] Care. Evaluation Time: PT Vega Dawkins Minutes (91244): 30 Signing Clinician: Dyan Brito [facility] OUTPATIENT PHYSICAL THERAPY PLAN OF TREATMENT FOR OUTPATIENT REHABILITATION Patient's Last Name, First Name, Kaila Doyle Date of : 1960 Provider's Name [facility] Onset Date: 04/18/23 Start of Care [...] Provider: Mary Del Cid Initial Assessment See [facility] Evaluation- Start of Care Date: 05/11/23 GER BOOKS Associated attestation - Mary Del Cid NP - 05/16/2023 7:58 AM MANAGER BOOKS Physician Attestation I agree with the information in this note. Mary Del Cid NP documented in this encounter Plan of Treatment Upcoming Encounters Date Type Department Care Team (Late st Contact Info) Description 08/18/2023 3:00 PM MANAGER BOOKS Office Visit [facility] [address] [facility] [address] [place] [address] Katiana Read MD [address] [place] [address] Scheduled Referrals Name Type Priority Associated Diagnoses [...] documented as of this encounter Care Teams Food Vendor Relationship Specialty [place] [address] [place] [address] PCP - General Family Medicine 05/18/22 Jovany Gonzalez MD [facility] [address] [place], [place] [address] Orthopedics 02/15/17 Staci Woodward NP [place] [address] [place], [place] [address] Nurse Practitioner Nurse Practitioner Psych/Mental Health 05/10/17 Reanna Smith, [facility] [address] [place] [address] Viscose Cellar Worker Dietitian, Registered 07/25/19 Roshni Nascimento, RN Personal Advocate & Liaison (PAL) Family Medicine 08/18/20 Kiet Swain MD [address] [place], [place] [address] [place] [address] Referring Physician Psychiatry 09/19/20 Winsome Pike APRN LOG RAFTER [address] [place] [address] [phone] Nurse Practitioner Psychiatry 09/19/20 Tori Hines, [facility] [address] [place] [address] Radiology Physician Assistant Radiology Physician Assistant - Clinical 09/19/20 Miranda Queen [facility] [address] [place] [address] Pharmacist Pharmacist 11/12/20 Marisel Armando MD 9 [place], [place] [address] Gastroenterology 02/05/21 Wesley Barrett MD [address] [place] [address] 96 [place], [place] [address] Assigned Neuroscience Provider 05/10/21 [place] [address] [place] [address] Assigned PCP 05/15/22 Katiana Read MD [address] [place] [address] Assigned Endocrinology Provider 06/19/22 [place] [address] [address] [place] [address] Nurse Practitioner Nurse Practitioner 10/18/22 [facility] [address] [place] [address] Pharmacist Pharmacist 10/19/22 Aubrey Jones MD [address] [place] [address] Cardiovascular Disease 03/28/23 Blanquita Morales Viscose Cellar Worker Diabetes Education 04/25/23 Aubrey Jones MD [address] [place] [address] Assigned Heart and Vascular Provider 05/07/23 documented as of this encounter
--- OUTSIDE RECORDS SUMMARY | 2023-08-03 12:38 | XMS_ITS | Encounter Summary ---
Author Name Unknown Organization [facility] Address [address] [place] [address]. [place] [address] Care Team Providers Care Senior Nurse Manager Name Role Phone Jovany Gonzalez MD Unavailable [phone] CrissyStaci jeong SCHOOL PATROL Unavailable [phone] Unavailable [phone] Roshni Nascimento RN Unavailable Unavailable Kiet Swain MD Unavailable [phone] Winsome Pike APRN ASW SPECIALIST Unavailable [phone] Tori Hines [facility] Unavailable Miranda Queen [facility] Unavailable Unavailable Marisel Armando MD Unavailable Wesley Barrett MD Unavailable [phone] Dyan Fuentes MD Primary Care Provider [phone] Dyan Fuentes MD Unavailable [phone] Katiana Read MD Unavailable [phone] Mary Del Cid SCHOOL PATROL Unavailable + [phone] Elham Stack [facility] Unavailable [phone] Aubrey Jones MD Unavailable [phone] Blanquita Morales Unavailable Unavailable Aubrey Jones MD Unavailable [phone] Encounter Details Date Type Department Care Team [...] week 10/16/2021 How often do you attend [facility] or nondenominational services? 1 to 4 times [...] Answer Date Recorded PHQ-2 Score 2 05/12/2023 [facility] of Occupat ional [...] st Contact Info) Description 08/18/2023 3:00 PM WELL LOGGING MUD ANALYSIS CAPTAIN Office Visit [facility] [address] [place] [phone] Katiana Read MD [address] [place] [address] documented as of this encounter Goals Goal [...] as of this encounter Care Teams Senior Nurse Manager Relationship Specialty [place] [address] [place] [address] PCP - General Family Medicine 05/18/22 Jovany Gonzalez MD [facility] [address] [facility] [address] [place], [place] [address] Orthopedics 02/15/17 Staci Woodward, SCHOOL PATROL [place] [address] [place], [place] [phone] Nurse Practitioner Nurse Practitioner Psych/Mental Health 05/10/17 Reanna Smith, RD [facility] [address] [place], [place] 2450[address] Plant Operator/Shift Supervisor Dietitian, Registered 07/25/19 Roshni Nascimento, RN Personal Advocate & Liaison (PAL) Family Medicine 08/18/20 Kiet Swain MD [address] [place] [address] [phone] Referring Physician Psychiatry 09/19/20 Winsome Pike APRN ASW SPECIALIST [address] [place] [address] Nurse Practitioner Psychiatry 09/19/20 Tori Hines, [facility] [address] [place] [address] Cell Phone Repair Technician Cell Phone Repair Technician - Clinical 09/19/20 [place] [address] [place] [address] Pharmacist Pharmacist 11/12/20 Marisel Armando MD [address] [place] [address] Gastroenterology 02/05/21 Wesley Barrett MD [address] [facility] [address] [place] [address] Assigned Neuroscience Provider 05/10/21 [place] [address] [place] [address] Assigned PCP 05/15/22 Katiana Read MD [address] [place] [address] Assigned Endocrinology Provider 06/19/22 [place] [address] [place] [address] Nurse Practitioner Nurse Practitioner 10/18/22 Elham Stack, [facility] [address] [place] [address] Pharmacist Pharmacist 10/19/22 Aubrey Jones MD [address] [place] [address] Cardiovascular Disease 03/28/23 Blanquita Morales Plant Operator/Shift Supervisor Diabetes Education 04/25/23 Aubrey Jones MD [address] [place] [address] Assigned Heart and Vascular Provider 05/07/23 documented as of this encounter
--- OUTSIDE RECORDS SUMMARY | 2023-08-03 12:38 | XMS_ITS | Encounter Summary ---
Author Name Unknown Organization [place] Address [address] [place] [address]. [place] [address] Care Team Providers Care Second Rigger Name Role Phone Jovany Gonzalez MD Unavailable CrissyStaci jeong PAIN MANAGEMENT NURSE PRACTITIONER Unavailable [phone] Unavailable [phone] Roshni Nascimento RN Unavailable Unavailable Kiet Swain MD Unavailable [phone] Winsome Pike APRN DOLLYMAN Unavailable [phone] Tori Hines [facility] Unavailable Miranda Queen [facility] Unavailable Unavailable Marisel Armando MD Unavailable Wesley Barrett MD Unavailable [phone] Dyan Fuentes MD Primary Care Provider [phone] Dyan Fuentes MD Unavailable [phone] Katiana Read MD Unavailable [phone] Mary Del Cid PAIN MANAGEMENT NURSE PRACTITIONER Unavailable + [phone] Elham Stack [facility] Unavailable [phone] Aubrey Jones MD Unavailable [phone] Blanquita Morales Unavailable Unavailable Aubrey Jones MD Unavailable [phone] Reason for Visit * Reason Comments Breathing Problem Breathing problems h ave been getting worse over the past 4 months. Terrible cough x 4 months also that won't seem to clear. Recheck Medication Would like a few ref ills on some medications. Encounter Details Date Type Department Care Team (Late st Contact Info) Description 05/12/2023 2:30 PM CDT Office Visit [facility] [address] [place] [address] [place] [address] [place] [address] Chronic obstructive pulmonary disease, unspecified [...] 10/16/2021 How often do you attend [facility] or [facility] services? 1 to 4 times per year [...] Answer Date Recorded PHQ-2 Score 2 05/12/2023 [facility] - Occupational Stress Questionnaire Answer [...] for shortness of breath or wheezing - Grtczvoyffo-Ojgrabive-Wpadjrhpkd (TRELEGY ELLIPTA) 200-62.5-25 MCG/ACT oral inhaler; Inhale [...] down since November 2022. Dyan Fuentes MD [facility] Zeyad Bright is a 62 year old, [...] st Contact Info) Description 08/18/2023 3:00 PM KINESIOTHERAPIST Office Visit [facility] [address] [facility] [address] [place] [address] Katiana Read MD [address] [facility] [address] [place] [address] documented as of this encounter Goals Goal [...] D dimer, quantitative (05/12/2023 2:50 PM CDT) [facility] D-Dimer Quantitative 1.37(H) 0.00 - 0.50 [...] out pulmonary embolism: The ADJUST-PE Study. COLE 2014;311:5201-1928.; HJ Parker et al. Diagnostic accuracy of conventional or age adjusted D-dimer cutoff values in older patients with suspected venous thromboembolism. Systemic review and meta-analysis. BMJ 2013:346:f2492. Dyan Fuentes MD LAB - BLOOD ORDER LENA [facility] [address] Lab (no room number, 1st floor of clinic) [place] [address], [facility] [phone] documented in this encounter Visit Diagnoses Diagnosis [...] documented as of this encounter Care Teams Second Rigger Relationship Specialty [place] [address] [place] [address] PCP - General Family Medicine 05/18/22 Jovany Gonzalez MD [facility] [address] [facility] [address] [place], [place] [address] Orthopedics 02/15/17 Staci Woodward, PAIN MANAGEMENT NURSE PRACTITIONER [place] [address] [place], [place] [address] Nurse Practitioner Nurse Practitioner Psych/Mental Health 05/10/17 Reanna Smith, RD [place] [address] [place], [place] [id number] Coat Check Attendant Dietitian, Registered 07/25/19 Roshni Nascimento, RN Personal Advocate & Liaison (PAL) Family Medicine 08/18/20 Kiet Swain MD [address] [place] [id number] Referring Physician Psychiatry 09/19/20 Winsome Pike APRN DOLLYMAN [address] [place] [address] Nurse Practitioner Psychiatry 09/19/20 Tori Hines [facility] [address] [place] [address] Bureau Director Bureau Director - Clinical 09/19/20 Miranda Queen [facility] [address] [place] [address] Pharmacist Pharmacist 11/12/20 Marisel Armando MD [address] [place], [place] [address] Gastroenterology 02/05/21 Wesley Barrett MD [address] [facility] [address] [place] [address] Assigned Neuroscience Provider 05/10/21 [place] [address] [place] [address] Assigned PCP 05/15/22 Katiana Read MD [address] [place] [address] Assigned Endocrinology Provider 06/19/22 [place] [address] [place] [address] Nurse Practitioner Nurse Practitioner 10/18/22 Elham Stack, [facility] [address] [place] [address] Pharmacist Pharmacist 10/19/22 Aubrey Jones MD [address] [place] [address] Cardiovascular Disease 03/28/23 Blanquita Morales Coat Check Attendant Diabetes Education 04/25/23 Aubrey Jones MD [address] [place] [address] Assigned Heart and Vascular Provider 05/07/23 documented as of this encounter
--- OUTSIDE RECORDS SUMMARY | 2023-08-03 12:38 | XMS_ITS | Encounter Summary ---
Author Name Unknown Organization [place] Address [address] [place] [address]. [place] [address] Care Team Providers Care Dry Ice Machine Operator Name Role Phone Jovany Gonzalez MD Unavailable CrissyStaci jeong NP Unavailable [phone] Unavailable [phone] Roshni Nascimento RN Unavailable Unavailable Kiet Swain MD Unavailable [phone] Winsome Pike APRN WIND TURBINE TECHNICIAN Unavailable [phone] Tori Hines [facility] Unavailable Miranda Queen [facility] Unavailable Unavailable Marisel Armando MD Unavailable Wesley Barrett MD Unavailable [phone] Dyan Fuentes MD Primary Care Provider [phone] Dyan Fuentes MD Unavailable [phone] Katiana Read MD Unavailable [phone] Mary Del Cid RADIATION THERAPY TECHNICIAN Unavailable [phone] Elham Stack [facility] Unavailable [phone] Aubrey Jones MD Unavailable [phone] Blanquita Morales Unavailable Unavailable Encounter Details Date Type Department Care Team (Late st Contact Info) Description 05/03/2023 [facility] [address] [place] [address] [place] [address] [place] [address] Social History Tobacco Use Types [...] you attend [facility] or syn[facility] services? 1 to 4 times [...] Answer Date Recorded PHQ-2 Score 2 11/25/2022 [facility] - [...] st Contact Info) Description 08/18/2023 3:00 PM VP CLINICAL RESEARCH Office Visit [facility] [address] [facility] [address] [place] [address] Katiana Read MD [address] [place] [address] documented as of this encounter [...] documented as of this encounter Care Teams Dry Ice Machine Operator Relationship Specialty [place] [address] [place] [address] PCP - General Family Medicine 05/18/22 Jovany oGnzalez MD [facility] [address] [facility] [address] [place], [place] [address] Orthopedics 02/15/17 Staci Woodward NP [place] [address] [place], [place] [address] Nurse Practitioner Nurse Practitioner Psych/Mental Health 05/10/17 Reanna Smith, [facility] [address] [place] [address] Terrazzo Grinder Dietitian, Registered 07/25/19 Roshni Nascimento RN Personal Advocate & Liaison (PAL) Family Medicine 08/18/20 Kiet Swain MD [address] [facility] [address] [place], [place] [address] Referring Physician Psychiatry 09/19/20 Winsome Pike APRN WIND TURBINE TECHNICIAN [address] [place] [address] Nurse Practitioner Psychiatry 09/19/20 Tori Hines, [facility] [address] [place] [address] Dental Billing Specialist Dental Billing Specialist - Clinical 09/19/20 Miranda Queen [facility] [address] [place] [address] Pharmacist Pharmacist 11/12/20 Marisel Armando MD 909 [place], [place] [address] Gastroenterology 02/05/21 Wesley Barrett MD [address] [facility] [address] [place], [place] [address] Assigned Neuroscience Provider 05/10/21 [place] [address] [place] [address] Assigned PCP 05/15/22 Katiana Read MD [address] [facility] [address] [place] [address] Assigned Endocrinology Provider 06/19/22 [place] [address] [place] [address] Nurse Practitioner Nurse Practitioner 10/18/22 Elham Stack [facility] 3033 [place] [address] Pharmacist Pharmacist 10/19/22 Aubrey Jones MD [address] [place] [address] Cardiovascular Disease 03/28/23 Blanquita Morales Terrazzo Grinder Diabetes Education 04/25/23 documented as of this encounter
--- OUTSIDE RECORDS SUMMARY | 2023-08-03 12:39 | XMS_ITS | Encounter Summary ---
Author Name Unknown Organization [place] Address [address] [place] [address]. [place] [address] Care Team Providers Care Power Plant Operations Manager Name Role Phone Jovany Gonzalez MD Unavailable [phone] CrissyStaci jeong NP Unavailable [phone] Unavailable [phone] Roshni Nascimento RN Unavailable Unavailable Kiet Swain MD Unavailable [phone] Winsome Pike APRN SENIOR COMPLIANCE OFFICER Unavailable [phone] Tori Hines [facility] Unavailable Miranda Queen [facility] Unavailable Unavailable Marisel Armando MD Unavailable Wesley Barrett MD Unavailable [phone] Dyan Fuentes MD Primary Care Provider [phone] Dyan Fuentes MD Unavailable [phone] Katiana Read MD Unavailable [phone] Mary Del Cid [facility] Unavailable [phone] Elham Stack [facility] Unavailable [phone] Aubrey Jones MD Unavailable [phone] Encounter [...] How often do you attend chur or mosque services? 1 to 4 times per year [...] Answer Date Recorded PHQ-2 Score 2 11/25/2022 [facility]at ional [facility] - [...] in a retirement (including now)? No 10/16/2021 Adolescent Education Answer [...] st Contact Info) Description 08/18/2023 3:00 PM GRINDING OPERATOR Office Visit [facility] [address] [place] [address] Katiana Read MD [address] [place], [place] [address] documented as of this encounter Visit Diagnoses Not on filedocumented in this encounter Additional Health Concerns Assessment Noted Time PHQ-9 Depression Total Score: 10 11/25/ 023 8:26 AM CDT documented as of this encounter Care Teams Power Plant Operations Manager Relationship Specialty [place] [address] [place] [address] PCP - General Family Medicine 05/18/22 Jovany Gonzalez MD [facility] [address] [facility] [address] [place] [address] Orthopedics 02/15/17 Staci Woodward, [facility] [address] [place], [place] [address] Nurse Practitioner Nurse Practitioner Psych/Mental Health 05/10/17 Reanna Smith, RD [facility] [address] [place], [place] [address] Book Jogger Dietitian, Registered 07/25/19 Roshni Nascimento, RN Personal Advocate & Liaison (PAL) Family Medicine 08/18/20 Kiet Swain MD [address] [facility] [address] [place], [place] [address] Referring Physician Psychiatry 09/19/20 Winsome Pike APRN SENIOR COMPLIANCE OFFICER [address] [place], [place] [address] Nurse Practitioner Psychiatry 09/19/20 Tori Hines, [facility] [address]50 [place] [address] Cloth Dye Range Operator Cloth Dye Range Operator - Clinical 09/19/20 Miranda Queen [facility] [address] [place] [address] Pharmacist Pharmacist 11/12/20 Marisel Armando MD 909 [place] [address] Gastroenterology 02/05/21 Wesley Barrett MD [address] [facility] [address] [place] [address] Assigned Neuroscience Provider 05/10/21 [place] [address] [place] [address] Assigned PCP 05/15/22 Katiana Read MD [address] [facility] 200 [place] [address] Assigned Endocrinology Provider 06/19/22 Mary Del Cdi, [facility] [address] [place] [address] Nurse Practitioner Nurse Practitioner 10/18/22 [facility] 30[address] [place] [address] Pharmacist Pharmacist 10/19/22 Aubrey Jones MD [address] [facility] [address] [place] [address] Cardiovascular Disease 03/28/23 documented as of this encounter
--- OUTSIDE RECORDS SUMMARY | 2023-08-03 12:39 | XMS_ITS | Encounter Summary ---
Author Name Unknown Organization [place] Address [address] [place] [address]. [place] [address] Care Team Providers Care Rn Surgical Name Role Phone Jovany Gonzalez MD Unavailable CrissyStaci jeong GAS APPLIANCE ADJUSTER Unavailable [phone] Unavailable [phone] Roshni Nascimento RN Unavailable Unavailable Kiet Swain MD Unavailable [phone] Winsome Pike APRN TECHNICAL TRAINING MANAGER Unavailable [phone] [facility] Unavailable Miranda Queen [facility] Unavailable Unavailable Marisel Armando MD Unavailable Wesley Barrett MD Unavailable [phone] Dyan Fuentes MD Primary Care Provider [phone] Dyan Fuentes MD Unavailable [phone] Katiana Read MD Unavailable [phone] Mary Del Cid GAS APPLIANCE ADJUSTER Unavailable + [phone] Elham Stack [facility] Unavailable [phone] Aubrey Jones MD Unavailable [phone] Blanquita Morales Unavailable Unavailable Aubrey Jones MD Unavailable [phone] Reason for Visit * Reason Onset Date Comments Opioid Refill 04/15/2023 buprenorphine HC l-naloxone HCl (SUBOXONE) 4-1 MG per film Encounter Details Date Type Department Care Team (Late st Contact Info) Description 04/15/[address] [facility] Pain Management [place] [address] [facility] [address] [place] [address] [place] [address] [place] [address] Opioid Refill (buprenorphine HCl-naloxone HCl (SUBOXONE) 4-1 [...] any clubs o r organizations such as denominational groups, unions, fraternal or athletic groups, or [...] Score 2 11/25/2022 [facility] - Occupational Stress Questionnaire [...] in a prison (including now)? No 10/16/2021 Adolescent Education Answer [...] days. May fill 02/20/23 and start 02/23/23. [facility] - [place], [place] - [address] [facility] [address] [facility] [address] Janine Raymundo RN Grocery Buyer [facility] * Telephone Encounter - Gildardo [...] Date of opioid agreement: 11/11/2022. E-prescribe to: [facility] - [place], [place] - [address] Will route [facility] for review and preparation of prescription(s). * Telephone Encounter - Blanquita Perera, RN - 04/15/2023 10:44 AM CDT Routed to [facility] to gather required information for opioid refill. Blanquita LEAHY, RN Grocery Buyer [facility] * Telephone Encounter - Nerissa Evans - 04/15/2023 10:31 AM CDT [facility] Call Center Phone Message May a detailed message be left on voicemail: yes Reason for Call: Medication Refill Request Has the patient contacted the pharmacy for the refill? Yes Name of medication being requested: buprenorphine HCl-naloxone HCl (SUBOXONE) 4- 1 MG per film Provider who prescribed the medication: Mary Del Cid Pharmacy: [facility] Date medication is needed: RAFAELA documented in this encounter Plan of Treatment Upcoming Encounters Date Type Department Care Team (Late st Contact Info) Description 08/18/2023 3:00 PM TAB CARD PRESS OPERATOR Office Visit [facility] [address] [place] [address] Katiana Read MD [address] [place] [address] documented as of this encounter Visit Diagnoses Diagnosis Chronic pain syndrome documented in this encounter Additional Health Concerns Assessment Noted Time PHQ-9 Depression Total Score: 10 11/25/ 023 8:26 AM CDT documented as of this encounter Care Teams Rn Surgical Relationship Specialty [place] [address] [place] [address] PCP - General Family Medicine 05/18/22 Jovany Gonzalez MD [facility] [address] [facility] [address] [place], [place] [address] Orthopedics 02/15/17 Staci Woodward, GAS APPLIANCE ADJUSTER [place] [address] [place], [place] [address] Nurse Practitioner Nurse Practitioner Psych/Mental Health 05/10/17 Reanna Smith, RD [place] [address] [place] [address] Partner Marketing Manager Dietitian, Registered 07/25/19 Roshni Nascimento, RN Personal Advocate & Liaison (PAL) Family Medicine 08/18/20 Kiet Swain MD [address] [place] [address] [id number] Referring Physician Psychiatry 09/19/20 Winsome Pike APRN TECHNICAL TRAINING MANAGER [address] [place] [address]504 Nurse Practitioner Psychiatry 09/19/20 Tori Hines, [facility] [address] [place], [place] [address] Loom Fixer Supervisor Loom Fixer Supervisor - Clinical 09/19/20 Miranda Queen [facility] [address] [place] [address] Pharmacist Pharmacist 11/12/20 Marisel Armando MD [address]09 [place], [place] [address] Gastroenterology 02/05/21 Wesley Barrett MD [address] [facility] [address] [place] [address] Assigned Neuroscience Provider 05/10/21 [place] [address] [place] [address] Assigned PCP 05/15/22 Katiana Read MD [address] [place], [place] [address] Assigned Endocrinology Provider 06/19/22 [place] [address] [place] [address] Nurse Practitioner Nurse Practitioner 10/18/22 Elham Stack, [facility] [address] [place] [address] Pharmacist Pharmacist 10/19/22 Aubrey Jones MD [address] [place] [address] Cardiovascular Disease 03/28/23 Blanquita Morales Partner Marketing Manager Diabetes Education 04/25/23 Aubrey Jones MD [address] [place] [address] Assigned Heart and Vascular Provider 05/07/23 documented as of this encounter
--- OUTSIDE RECORDS SUMMARY | 2023-08-03 12:39 | XMS_ITS | Encounter Summary ---
Author Name Unknown Organization [facility] Address [address] [place] [address]. [place] [address] Care Team Providers Care Leather Tooler Name Role Phone Jovany Gonzalez MD Unavailable CrissyStaci jeong NP Unavailable [phone] Unavailable Roshni Nascimento RN Unavailable Unavailable Kiet Swain MD Unavailable [phone] Winsome Pike APRN WET AND DRY SUGAR BIN OPERATOR Unavailable [phone] Tori Hines [facility] Unavailable Miranda Queen [facility] Unavailable Unavailable Marisel Armando MD Unavailable Wesley Barrett MD Unavailable [phone] Dyan Fuentes MD Primary Care Provider [phone] Dyan Fuentes MD Unavailable [phone] Katiana Read MD Unavailable [phone] Mary Del Cid FUNERAL DRIVER Unavailable [phone] Elham Stack [facility] Unavailable [phone] Michelle Guzman DPM, Podiatry /Foot and Ankle Surgery Unavailable Dyan Fuentes MD Unavailable Aubrey Jones MD Unavailable [phone] Blanquita Morales Unavailable Unavailable Aubrey Jones MD Unavailable [phone] Reason for Visit * Reason Onset Date Comments Orders 03/28/2023 Encounter Details Date Type Department Care Team (Late st Contact Info) Description 03/28/[address] [facility] [address] [place] [address] Katiana Read MD [address] [place] [address] Orders Social History Tobacco Use [...] often do you attend chur ch or roman catholic services? 1 to 4 times per year [...] Answer Date Recorded PHQ-2 Score 2 11/25/2022 [facility] - Occupational Stress Questionnaire Answer Date [...] st Contact Info) Description 08/18/2023 3:00 PM FLYING INSTRUCTOR Office Visit [facility] [address] [place] [address] Katiana Read MD [address] [place] [address] documented as of this encounter Results * (ABNORMAL) Hemoglobin A1c (06/23/2023 3:28 PM FLYING INSTRUCTOR) Hemoglobin A1C 8.9(H) 0.0 - 5.6 % 06/23/2023 3:49 PM FLYING INSTRUCTOR LABORATORY Blood BLOOD SPECIMEN / Unknown Venipuncture / Unknown 06/23/2023 3:28 PM FLYING INSTRUCTOR 06/23/2023 3:34 PM FLYING INSTRUCTOR Narrative LABORATORY - 06/23/2023 3:49 PM FLYING INSTRUCTOR Results confirmed by repeat test. Dyan Fuentes MD LAB - BLOOD ORDER LENA LABORATORY [facility] [address] [facility] Lab (no room number, 1st floor of clinic) [place] [address], [facility] [phone] * (ABNORMAL) Drug Abuse Screen Panel 13, Urine (Pain Care Map) - lab collect (06/23/2023 3:28 PM FLYING INSTRUCTOR) [facility] Cannabinoids (06-bwd-1-carboxy -9-THC) Detected(A ) Not Detected, Indeterminate 06/24/2023 2:08 PM FLYING INSTRUCTOR OX LABORATORY Comment: Cutoff for a positive cannabinoid is greater than 50 ng/ml. This is an unconfirmed screening result to be used for medical purposes only. Phencyclidine Not Detected Not Detected, Indeterminate 06/24/2023 2:08 PM FLYING INSTRUCTOR OX LABORATORY Comment:Cutoff for a negativ e PCP is 25 ng/mL or less. Cocaine (Benzoylecgonine) Not Detected Not Detected, Indeterminate 06/24/2023 2:08 PM FLYING INSTRUCTOR OX LABORATORY Comment:Cutoff for a negativ e cocaine is 150 ng/ml or less. Methamphetamine (d-Methamphetamin e) Not Detected Not Detected, Indeterminate 06/24/2023 2:08 PM FLYING INSTRUCTOR OX LABORATORY Comment:Cutoff for a negativ e methamphetamine is 500 ng/ml or less. Opiates (Morphine) Not Detected Not Detected, Indeterminate 06/24/2023 2:08 PM FLYING INSTRUCTOR OX LABORATORY Comment:Cutoff for a negativ e opiate is 100 ng/ml or less. Amphetamine (d-Amphetamine) Not Detected Not Detected, Indeterminate 06/24/2023 2:08 PM FLYING INSTRUCTOR OX LABORATORY Comment:Cutoff for a negativ e amphetamine is 500 ng/mL or less. Benzodiazepines (Nordiazepam) Not Detected Not Detected, Indeterminate 06/24/2023 2:08 PM FLYING INSTRUCTOR OX LABORATORY Comment:Cutoff for a negativ e benzodiazepine is 150 ng/ml or less. Tricyclic Antidepressants (Desipramine) Not Detected Not Detected, Indeterminate 06/24/2023 2:08 PM FLYING INSTRUCTOR OX LABORATORY Comment:Cutoff for a negativ e tricyclic antidepressant is 300 ng/ml or less. Methadone Not Detected Not Detected, Indeterminate 06/24/2023 2:08 PM FLYING INSTRUCTOR OX LABORATORY Comment:Cutoff for a negativ e methadone is 200 ng/ml or less. Barbiturates (Butalbital) Not Detected Not Detected, Indeterminate 06/24/2023 2:08 PM FLYING INSTRUCTOR OX LABORATORY Comment:Cutoff for a negativ e barbituate is 200 ng/ml or less. Oxycodone Not Detected Not Detected, Indeterminate 06/24/2023 2:08 PM FLYING INSTRUCTOR OX LABORATORY Comment:Cutoff for a negativ e oxycodone is 100 ng/mL or less. Buprenorphine Detected(A ) Not Detected, Indeterminate 06/24/2023 2:08 PM FLYING INSTRUCTOR OX LABORATORY Comment: Cutoff for a positive buprenorphine is greater than 10 ng/ml. This is an unconfirmed screening result to be used for medical purposes only. Urine MID-STREAM URINE SPECIMEN / Unknown Non-blood Collection / Unknown 06/23/2023 3:28 PM FLYING INSTRUCTOR 06/23/2023 3:34 PM FLYING INSTRUCTOR Dyan Fuentes MD LAB - URINE ORDER LENA OX LABORATORY [facility] [address] Lab (no room number, 1st floor of clinic) [place] [address], [facility] [phone] documented in this encounter Visit Diagnoses Diagnosis Postablative hypothyroidism- Primary Other postablative hypothyroidism Other chronic pain Type 2 diabetes mellitus without complication, without long-term current use of insulin (H) documented in this encounter Additional Health Concerns Assessment Noted Time PHQ-9 Depression Total Score: 10 023 8:26 AM CDT documented as of this encounter Care Teams Leather Tooler Relationship Specialty [place] [address] [place] [address] PCP - General Family Medicine 05/18/22 Jovany Gonzalez MD [facility] [address] [facility] [address] [place], [place] [address] Orthopedics 02/15/17 Staci Woodward NP [address] [address] Nurse Practitioner Nurse Practitioner Psych/Mental Health 05/10/[address] [place] [address] Digital Recruiter Dietitian, Registered 07/25/19 Roshni Nascimento, RN Personal Advocate & Liaison (PAL) Family Medicine 08/18/20 Kiet Swain MD [facility] [address] [place], [place] [address] Referring Physician Psychiatry 09/19/20 Winsome Pike, VIDHI WET AND DRY SUGAR BIN OPERATOR [address] [place] [address] Nurse Practitioner Psychiatry 09/19/20 Tori Hines, [facility] [place], [place] [id number] Cyber Incident Handler Cyber Incident Handler - Clinical 09/19/20 [facility] [address] [place] [address] Pharmacist Pharmacist 11/12/20 Marisel Armando MD [address] [place], [place] [address] Gastroenterology 02/05/21 Wesley Barrett MD [address] [facility] [address] [place] [address] Assigned Neuroscience Provider 05/10/21 [place] [address] [place] [address] Assigned PCP 05/15/22 Katiana Read MD [address] [place], [place] [address] Assigned Endocrinology Provider 06/19/22 [place] [address] [place] [address] Nurse Practitioner Nurse Practitioner 10/18/22 Elham Stack, [facility] [address] [place] [address] Pharmacist Pharmacist 10/19/22 Michelle Guzman DPM, Podiatry/Foot and Ankle Surgery [address] [place] [address] Assigned Musculoskeletal Provider 10/16/22 04/08/23 [place] [address] [place] [address] Assigned Pain Medication Provider 12/04/22 04/01/23 Aubrey Jones MD [address] [place] [address] Cardiovascular Disease 03/28/23 Blanquita Morales Digital Recruiter Diabetes Education 04/25/23 Aubrey Jones MD [address] [place] [address] Assigned Heart and Vascular Provider 05/07/23 documented as of this encounter
--- OUTSIDE RECORDS SUMMARY | 2023-08-03 12:39 | XMS_ITS | Encounter Summary ---
Author Name Unknown Organization [facility] Address [address] [place] [address]. [place] [address] Care Team Providers Care Eye Dropper Assembler Name Role Phone Jovany Gonzalez MD Unavailable [phone] CrissyStaci jeong NP Unavailable [phone] Unavailable [phone] Roshni Nascimento RN Unavailable Unavailable Kiet Swain MD Unavailable [phone] Winsome Pike APRN PROFESSOR OF EDUCATION Unavailable [phone] Tori Hines [facility] Unavailable Miranda Queen [facility] Unavailable Unavailable Marisel Armando MD Unavailable Wesley Barrett MD Unavailable [phone] Dyan Fuentes MD Primary Care Provider [phone] Dyan Fuentes MD Unavailable [phone] Katiana Read MD Unavailable [phone] Mary Del Cid TELEVISION CABLE INSTALLER Unavailable [phone] Elham Stack [facility] Unavailable [phone] Aubrey Jones MD Unavailable [phone] Reason for Referral * Rehab Therapy Physical Therapy (Routine) - Closed Specialty Diagnoses / Procedures Referred By Contac t Referred To Contact Physical Therapy Diagnoses Chronic pain syndrome S/P lumbar laminectomy S/[place] [address] [place] [address] [facility] - [address] [place] [address] Referral ID Status Reason Start Date Expiration Date Visits Re quested Visits Authorized [id number] Closed 05/04/2023 07/10/2023 365 365 Scheduling Instructions Pain Management Provider Services: PT Evaluation and Treat: chronic neck and lower back pain Reason for Visit * Reason Comments Pain Encounter Details Date Type Department Care Team (Late st Contact Info) Description 04/18/2023 2:00 PM CDT Office Visit [facility] Pain Management [address] [place] [address] [place] [address] [place] [id number] Chronic pain syndrome (Primary Dx); S/P lumbar [...] 10/16/2021 How often do you attend [facility] or jew services? 1 to 4 times [...] Answer Date Recorded PHQ-2 Score 2 11/25/2022 [facility] - Occupational Stress Questionnaire Answer Date [...] slept in a correction (including now)? No 10/16/2021 Adolescent Education Answer [...] - 04/18/2023 2:00 PM CDT Clinic Number: [phone] Call with any questions about your care and for scheduling assistance. Calls are returned Tuesday through Tuesday between 8 AM and 4:30 PM. We usually get back to you within 2 business days depending on the issue/request. If we are prescribing your medications: For opioid medication refills, call the clinic or send a Acamicahart message 7 days in advance. Please include: Name of requested medication Name of the pharmacy. For non-opioid medications, call your pharmacy directly to request a refill. Please allow 3-4 days to be processed. Per [place] State Law: All controlled substance prescriptions must [...] from the original note were not included. [facility] Pain Management Date of Visit: 04/18/2023 Last [...] hematoma with Dr. Mayo on 08/20/[address] [facility]. Mental Health - the patient's mental health [...] to feel better and happier. Currently playing [employer], really likes that this allows her to [...] - She continues visits with therapist at [facility], has found this helpful and feels that this is the best she has ever felt. She and her no longer go to [facility] for family support, felt overly jew to them. Son is doing well in [...] prn Clonazepam 0.5mg BID prn Review of [place] Prescription Monitoring Program (PULVERIZER FEEDER): No concern for abuse or misuse of controlled medications based on this report. Viewed on 04/18/2023 (continue to experience that her pharmacy does not update to PULVERIZER FEEDER, but calling pharmacy verifies fills and she [...] several years ago -helpful, currently treating with [facility] 4. SURGERY: lumbar laminectomy L4-S1 with Dr. Barrett on 11/10/2021 C5-[address] Barrett on 05/18/[address] Mayo on 08/06/2020 and right hip irrigation, debridement, and evacuation of hematoma with Dr. Mayo on 08/20/[address] [facility] cervical fusion 2002 L5-S1 hemilaminectomy 2004 5. [...] her children's lives. One son lives in [place], others are local. One son (disabled from long covid/ substance use disorder) and his live with her. 5 grandchildren, 18 (boy), 16 (girl) and 3 are 5 (twin girls + girl who is three days apart from the twins). For fun, enjoys video games, crossword puzzles, being on [employer]. Last updated 02/14/2023 Medications and Allergies reviewed. [...] Pain PT orders placed. Mary Del Cid, PROFESSOR OF EDUCATION-BC, PMGT-BC, AP-PMN [facility] documented in this encounter Plan of Treatment Upcoming Encounters Date Type Department Care Team (Late st Contact Info) Description 08/18/2023 3:00 PM TRANSPORTER RADIOLOGY Office Visit [facility] [address] [place] [address] Katiana Read MD [address] [place] [address] Scheduled Referrals Name Type Priority Associated Diagnoses [...] documented as of this encounter Care Teams Eye Dropper Assembler Relationship Specialty [place] [address] [place] [address] PCP - General Family Medicine 05/18/22 Jovany Gonzalez MD [facility] [address] [facility] [address] [place], [place] [address] Orthopedics 02/15/17 Staci Woodward TELEVISION CABLE INSTALLER [facility] [address] [place], [place] [address] Nurse Practitioner Nurse Practitioner Psych/Mental Health 05/10/17 Reanna Smith, RD [facility] [address] [place] [address] Animal Shelter Clerk Dietitian, Registered 07/25/19 Roshni Nascimento RN Personal Advocate & Liaison (PAL) Family Medicine 08/18/20 Kiet Swain MD [address] [facility] [place] [address] Referring Physician Psychiatry 09/19/20 Winsome Pike APRN CNP [address] [place] [id number] Nurse Practitioner Psychiatry 09/19/20 Tori Hines [facility] [address] [place], [place] [address] Adobe Maker Adobe Maker - Clinical 09/19/20 Miranda Queen [facility] [address] [place] [address] Pharmacist Pharmacist 11/12/20 Marisel Armando MD [address] [place], [place] [address] Gastroenterology 02/05/21 Wesley Barrett MD 420 [facility] 96 [place], [place] [address] Assigned Neuroscience Provider 05/10/21 [place] [address] [place] [address] Assigned PCP 05/15/22 Katiana Read MD [address] [place] [address] Assigned Endocrinology Provider 06/19/22 [place] [address] [place] [address] Nurse Practitioner Nurse Practitioner 10/18/22 Elham Stack, [facility] [address] [place] [address] Pharmacist Pharmacist 10/19/22 Aubrey Jones MD [address] [place] [address] Cardiovascular Disease 03/28/23 documented as of this encounter
--- OUTSIDE RECORDS SUMMARY | 2023-08-03 12:39 | XMS_ITS | Encounter Summary ---
Author Name Unknown Organization [facility] Address [address] [place] [address]. [place] [address] Care Team Providers Care Arts And Crafts Teacher Name Role Phone Jovany Gonzalez MD Unavailable CrissyStaci jeong NP Unavailable [phone] Unavailable [phone] Roshni Nascimento RN Unavailable Unavailable Kiet Swain MD Unavailable [phone] Winsome Pike APRN REALTIME REPORTER Unavailable [phone] Tori Hines [facility] Unavailable Miranda Queen [facility] Unavailable Unavailable Marisel Armando MD Unavailable Wesley Barrett MD Unavailable [phone] Dyan Fuentes MD Primary Care Provider [phone] Dyan Fuentes MD Unavailable [phone] Katiana Read MD Unavailable [phone] Mary Del Cid FACTORY CLERK Unavailable [phone] Elham Stack [facility] Unavailable [phone] Aubrey Jones MD Unavailable [phone] Blanquita Morales Unavailable Unavailable Reason for Visit * Reason Comments Diabetes Education Encounter Details Date Type Department Care Team (Late st Contact Info) Description 04/25/2023 1:45 PM CDT Virtual Visit [facility] [address] [place] [address] Blanquita Morales, RD [address] [place] [address] Diabetes mellitus (H) (Primary Dx) Social History [...] 10/16/2021 How often do you attend [facility] or orthodox services? 1 to 4 [...] Answer Date Recorded PHQ-2 Score 2 11/25/2022 [facility] - Occupational Stress [...] in a jail (including now)? No 10/16/2021 Adolescent Education Answer [...] last couple weeks. States she went to leaf size picker her prescription and shedid not get enough Basaglar because the prescription did not reflect 32 units. Reported BG from [place]: She was unable to access Yours Florally carmina and states it wasn't working. Fasting [...] Dinner Breakfast: 8 AM: coffee with creamer Yakut sweet cream (tends to raise blood sugar) never eats breakfast, takes insulin before coffee Lunch: 1-2 PM: Boost or Glucerna or meatloaf sandwich Dinner: 6-9 PM: noc engineer salad with low fat dressing, ice cream [...] Refer patient to appropriate extended care steam bone press tender, as needed (Medication Therapy Management, Behavioral Health, Physical Therapy, etc.) Responsible User: Blanquita Morales Task: Discuss diabetes treatment plan with patient Responsible User: Blanquita Morales Problem: Diabetes Self-Management Education Needed to Optimize Self-Care Behaviors Goal: Understand diabetes pathophysiology and disease progression Task: Provide education on diabetes pathophysiology and disease progression specfic to patient's diabetes type Responsible User: lBanquita Morales Goal: Healthy Eating - follow a healthy eating pattern for diabetes Task: Provide education on portion control and consistency in amount, composition and timing of food intake Responsible User: Blanquita Morales Task: Provide education on managing carbohydrate intake (carbohydrate counting, plate planning method, etc.) Responsible User: Blanquita Morales Task: Provide education on weight management [...] monitoring (sensor placement, use of carmina or county director/reader, understanding glucose trends, alerts and alarms, differences [...] counseling Responsible User: Blanquita Morales RDN, [place], [facility] Time Spent: 30 minutes Encounter Type: Individual Any diabetes medication dose changes were made via the CDE Protocol per the patient's referring provider. A copy of this encounter was shared with the provider. documented in this encounter Plan of Treatment Upcoming Encounters Date Type Department Care Team (Late st Contact Info) Description 08/18/2023 3:00 PM COATING MACHINE FEEDER Office Visit [facility] [address] [place] [address] Katiana Read MD [address] [facility] [address] [place] [address] documented as of this encounter Goals Goal [...] documented as of this encounter Care Teams Arts And Crafts Teacher Relationship Specialty [place] [address] [place] [address] PCP - General Family Medicine 05/18/22 Jovany Gonzalez MD [facility] [address] [facility] [address] [place] [address] Orthopedics 02/15/17 Staci Woodward FACTORY CLERK [place] [address] [place], [place] [address] Nurse Practitioner Nurse Practitioner Psych/Mental Health 05/10/17 Reanna Smith, RD [place] [address] [place], [place] [address] Water Mangle Tender Dietitian, Registered 07/25/19 Roshni Nascimento, RN Personal Advocate & Liaison (PAL) Family Medicine 08/18/20 Kite Swain MD [address] [place] [address] Referring Physician Psychiatry 09/19/20 Winsome Pike APRN REALTIME REPORTER [address] [place] [id number] Nurse Practitioner Psychiatry 09/19/20 Tori Hines, [facility] [address] [place] [address] Retail Tire Sales Manager Retail Tire Sales Manager - Clinical 09/19/20 Miranda Queen [facility] [address] [place] [address] Pharmacist Pharmacist 11/12/20 Marisel Armando MD [address] [place], [place] [id number] Gastroenterology 02/05/21 Wesley Barrett MD [address] [place] [address] [address] [place], [place] [id number] Assigned Neuroscience Provider 05/10/21 [place] [address] [place] [address] Assigned PCP 05/15/22 Katiana Read MD [address] [place] [address] Assigned Endocrinology Provider 06/19/22 [place] [address] [place] [address] Nurse Practitioner Nurse Practitioner 10/18/22 Elham Stack, [facility] [address] [place] [address] Pharmacist Pharmacist 10/19/22 Aubrey Jones MD [address] [place] [address] Cardiovascular Disease 03/28/23 Blanquita Morales Water Mangle Tender Diabetes Education 04/25/23 documented as of this encounter
--- OUTSIDE RECORDS SUMMARY | 2023-08-03 12:39 | XMS_ITS | Encounter Summary ---
Author Name Unknown Organization [facility] Address [address] [place] [address]. [place] [address] Care Team Providers Care System Configuration Specialist Name Role Phone Jovany Gonzalez MD Unavailable CrissyStaci jeong NP Unavailable [phone] Unavailable [phone] Roshni Nascimento RN Unavailable Unavailable Kiet Swain MD Unavailable [phone] Winsome Pike APRN TOOL PUSHER Unavailable [phone] Tori Hines [facility] Unavailable Miranda Queen [facility] Unavailable Unavailable Marisel Armando MD Unavailable Wesley Barrett MD Unavailable [phone] Dyan Fuentes MD Primary Care Provider [phone] Dyan Fuentes MD Unavailable [phone] Katiana Read MD Unavailable [phone] Mary Del Cid DELIVERY PROFESSIONAL Unavailable [phone] Elham Stack [facility] Unavailable [phone] Aubrey Jones MD Unavailable [phone] Blanquita Morales Unavailable Unavailable Reason for Visit * Reason Comments New Patient * CV Cardio consult (Routine: Next available opening) - Closed Specialty Diagnoses / Procedures Referred By Contact Referred To Contact Cardiovascular Disease Diagnoses [place] [address] [place] [address] Referral ID Status Reason Start Date Expiration Date Visits Re quested Visits Authorized [id number] Closed 12/30/2022 12/30/2023 1 1 Encounter Details Date Type Department Care Team (Latest Contact Info) Description 05/03/2023 10:30 AM CDT Office Visit [facility] [address] [facility] [address] [place] [address] Aubrey Jones MD [address] [place], [place] [address] Abnormal electrocardiogram Social History Tobacco Use Types [...] often do you attend chur ch or advent services? 1 to 4 times [...] 11/25/2022 [facility] - Occupational Stress Questionnaire Answer [...] history of heart disease. She denies previous NM. She receives excellent attentive care from her cattle rancher and is on a statin drug chronically. The patient admits to a very sedentary lifestyle which she attributes to arthritic pain. She does not describe typical chest arm neck jaw or back discomfort with exertion, or change in mild chronic dyspnea which she attributes to deconditioning and cigarette use. The patient reports being diagnosed with Takotsubo stress cardiomyopathy at [facility] several years ago, but made a full recovery. Past Medical History 1) obesity 2) Generalized Anxiety/Depression 3) Essential hypertension 4) Dyslipidemia managed by cattle rancher 5) Chronic pancreatitis 6) Cervical/lumbar/hip osteoarthritis sp surgery . History of avascular necrosis right hip and sepsis requiring removal of hip prosthesis and eventual repeat hip surgery 7) sp cholecystectomy 8) sp SORIN/BSO pelvic suspension 9) Type 2 diabetes mellitus with severe neuropathy. 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] Aubrey [place] [address] [place] [address] documented in this encounter Plan of Treatment Upcoming Encounters Date Type Department Care Team (Late st Contact Info) Description 08/18/2023 3:00 PM TUNNELING MACHINE OPERATOR Office Visit [facility] [address] [facility] [address] [place] [address] Katiana Read MD [address] [place] [address] documented as of this encounter Goals Goal [...] as of this encounter Care Teams System Configuration Specialist Relationship Specialty [place] [address] [place] [address] PCP - General Family Medicine 05/18/22 Jovany Gonzalez MD [facility] [address] [place], [place] [address] Orthopedics 02/15/17 Staci Woodward NP [facility] [address] [place], [place] [address] Nurse Practitioner Nurse Practitioner Psych/Mental Health 05/10/17 Reanna Smith, LAURA [facility] [address] [place] [address] Elevator Technician Dietitian, Registered 07/25/19 Roshni Nascimento, RN Personal Advocate & Liaison (PAL) Family Medicine 08/18/20 Kiet Swain MD [address] [place], [place] [address] [place] [address] Referring Physician Psychiatry 09/19/20 Winsome Pike APRN TOOL PUSHER [address] [place] [address] [id number] Nurse Practitioner Psychiatry 09/19/20 Tori Hines, [facility] [address] [place] [address] 329004 Military Administrative Technician Military Administrative Technician - Clinical 09/19/20 Miranda Queen [facility] [address] [place] [address] Pharmacist Pharmacist 11/12/20 Marisel Armando MD 9 [place], [place] 3[address]85 Gastroenterology 02/05/21 Wesley Barrett MD [address] [place] [address] 96 [place], [place] [address] Assigned Neuroscience Provider 05/10/21 [place] [address] [place] [address] Assigned PCP 05/15/22 Katiana Read MD [address] [place] [address] Assigned Endocrinology Provider 06/19/22 [place] [address] [place] [address] Nurse Practitioner Nurse Practitioner 10/18/22 [facility] [address] [place] [address] Pharmacist Pharmacist 10/19/22 Aubrey Jones MD [address] [place] [address] Cardiovascular Disease 03/28/23 Blanquita Morales Elevator Technician Diabetes Education 04/25/23 documented as of this encounter
--- OUTSIDE RECORDS SUMMARY | 2023-08-03 12:39 | XMS_ITS | Encounter Summary ---
Author Name Unknown Organization [facility] Address [address] [place] [address]. [place] [address] Care Team Providers Care Detective Chief Name Role Phone Jovany Gonzalez MD Unavailable CrissyStaci jeong NP Unavailable [phone] Unavailable Roshni Nascimento RN Unavailable Unavailable Kiet Swain MD Unavailable [phone] Winsome Pike APRN BUDGET TECHNICIAN Unavailable [phone] Tori Hines [facility] Unavailable Miranda Queen [facility] Unavailable Unavailable Marisel Armando MD Unavailable Wesley Barrett MD Unavailable [phone] Dyan Fuentes MD Primary Care Provider [phone] Dyan Fuentes MD Unavailable [phone] Katiana Read MD Unavailable [phone] Mary Del Cid DIGITAL SALES PLANNER Unavailable [phone] Elham Stack [facility] Unavailable [phone] Michelle Guzman DPM, Podiatry /Foot and Ankle Surgery Unavailable Dyan Fuentes MD Unavailable Aubrey Jones MD Unavailable [phone] Reason for Visit * Reason Onset Date Comments Panel Management 03/30/2023 Encounter Details Date Type Department Care Team (Late st Contact Info) Description 03/30/2023 Telephone [facility] [address] [place] [address] [place] [address] [place] [address] Panel Management Social History Tobacco [...] you attend [facility] or gnosticist services? 1 to 4 [...] Answer Date Recorded PHQ-2 Score 2 11/25/2022 [facility] of Occupat ional [facility] [...] mammogram is due Type of outreach: Sent TripChamp message. Next Steps: Reach out within 90 days via Phone. Max number of attempts reached: No. Will try again in 90 days if patient still on fail list. Questions for provider review: None Panchito Bustamante CMA Chart routed to none. documented in this encounter Plan of Treatment Upcoming Encounters Date Type Department Care Team (Late st Contact Info) Description 08/18/2023 3:00 PM CMM OPERATOR Office Visit [facility] [address] [facility] [address] [place] [address] Katiana Read MD [address] [place], [place] [address] documented as of this encounter Visit Diagnoses Not on filedocumented in this encounter Additional Health Concerns Assessment Noted Time PHQ-9 Depression Total Score: 10 023 8:26 AM CDT documented as of this encounter Care Teams Detective Chief Relationship Specialty [place] [address] [place] [address] PCP - General Family Medicine 05/18/22 Jovany Gonzalez MD [facility] [address] [facility] [address] [place], [place] 4[address] Orthopedics 02/15/17 Staci Woodward DIGITAL SALES PLANNER [place] [address] [place], [place] [address] Nurse Practitioner Nurse Practitioner Psych/Mental Health 05/10/17 Reanna Smith, RD [place] [address] [place], [place] [address] Cassandra Consultant Dietitian, Registered 07/25/19 Roshni Nascimento, RN Personal Advocate & Liaison (PAL) Family Medicine 08/18/20 Kiet Swain MD [address] [place] [address] 509834 Referring Physician Psychiatry 09/19/20 Winsome Pike APRN BUDGET TECHNICIAN [address] [place] [address] 170494 Nurse Practitioner Psychiatry 09/19/20 Tori Hines, [facility] [address] [place] [address] 391014 Pump Machine Operator Pump Machine Operator - Clinical 09/19/20 Miranda Queen [facility] [address] [place] [address] Pharmacist Pharmacist 11/12/20 Marisel Armando MD 9 [place], [place] [address] Gastroenterology 02/05/21 Wesley Barrett MD [address] [place] [address] 96 [place], [place] [address] Assigned Neuroscience Provider 05/10/21 [place] [address] [place] [address] Assigned PCP 05/15/22 Katiana Read MD [address] [facility] 200 [place] [address] Assigned Endocrinology Provider 06/19/22 [place] [address] [place] [address] Nurse Practitioner Nurse Practitioner 10/18/22 Elham Stack, [facility] [address] [place] [address] Pharmacist Pharmacist 10/19/22 Michelle Guzman, DPM, Podiatry/Foot and Ankle Surgery [address] [facility] [address] [place] [address] Assigned Musculoskeletal Provider 10/16/22 04/08/23 [place] [address] [place] [address] Assigned Pain Medication Provider 12/04/22 04/01/23 Aubrey Jones MD [address] [place] [address] Cardiovascular Disease 03/28/23 documented as of this encounter
--- OUTSIDE RECORDS SUMMARY | 2023-08-03 12:39 | XMS_ITS | Encounter Summary ---
Author Name Unknown Organization [facility] Address [address] [place] [address]. [place] [address] Care Team Providers Care Centrifugal Operator Name Role Phone Jovany Gonzalez MD Unavailable CrissyStaci jeong CATERING CONVENTION SERVICES MANAGER Unavailable [phone] Unavailable [phone] Roshni Nascimento RN Unavailable Unavailable Kiet Swain MD Unavailable [phone] Winsome Pike APRN INTERFACE DESIGNER Unavailable [phone] Tori Hines [facility] Unavailable Miranda Queen [facility] Unavailable Unavailable Marisel Armando MD Unavailable Wesley Barrett MD Unavailable [phone] Dyan Fuentes MD Primary Care Provider [phone] Dyan Fuentes MD Unavailable [phone] Katiana Read MD Unavailable [phone] Mary Del Cid CATERING CONVENTION SERVICES MANAGER Unavailable [phone] Elham Stack [facility] Unavailable [phone] Aubrey Jones MD Unavailable [phone] Blanquita Morales Unavailable Unavailable Reason for Visit * Reason Onset Date Comments Medication Refill 04/25/2023 Basaglar Encounter Details Date Type Department Care Team (Late st Contact Info) Description 04/25/2023 Refill [facility] [address] [facility] [address] [place] [address] Blanquita Morales Medication Refill (Basaglar) [...] do you attend [facility] or temple services? 1 to 4 times [...] Answer Date Recorded PHQ-2 Score 2 11/25/2022 [facility] Occupat ional Health - [...] a long term (including now)? No 10/16/2021 Adolescent Education Answer [...] st Contact Info) Description 08/18/2023 3:00 PM DIRECT CARE COUNSELOR Office Visit [facility] [address] [facility] [address] [place] [address] Katiana Read MD [address] [place] [address] documented as of this encounter Goals Goal [...] documented as of this encounter Care Teams Centrifugal Operator Relationship Specialty [place] [address] [place] [address] PCP - General Family Medicine 05/18/22 Jovany Gonzalez MD [facility] [address] [facility] [address] [place], [place] [address] Orthopedics 02/15/17 Staci Woodward NP [place] [address] [place] [address] Nurse Practitioner Nurse Practitioner Psych/Mental Health 05/10/[address] [facility] [address] [place] [address] Recreation Engineer Dietitian, Registered 07/25/19 Roshni Nascimento, RN Personal Advocate & Liaison (PAL) Family Medicine 08/18/20 Kiet Swain MD [address] [place] [address] [address] [place], [place] [address] Referring Physician Psychiatry 09/19/20 Winsome Pike APRN INTERFACE DESIGNER [address] [address] Nurse Practitioner Psychiatry 09/19/20 Tori Hines, [facility] [place], [place] [address] Bar Attendant Bar Attendant - Clinical 09/19/20 Miranda Queen [facility] [address] [place] [address] Pharmacist Pharmacist 11/12/20 Marisel Armando MD 9 [place], [place] [address] Gastroenterology 02/05/21 Wesley Barrett MD [address] [place] [address] 96 [place] [address] Assigned Neuroscience Provider 05/10/21 [place] [address] [place] [address] Assigned PCP 05/15/22 Katiana Read MD [address] [place] [address] 200 [place] [address] Assigned Endocrinology Provider 06/19/22 [place] [address] [place] [address] Nurse Practitioner Nurse Practitioner 10/18/22 [facility] [address] [place] [address] Pharmacist Pharmacist 10/19/22 Aubrey Jones MD [address] [place] [address] Cardiovascular Disease 03/28/23 Blanquita Morales Recreation Engineer Diabetes Education 04/25/23 documented as of this encounter
--- OUTSIDE RECORDS SUMMARY | 2023-08-03 12:39 | XMS_ITS | Encounter Summary ---
Author Name Unknown Organization [facility] Address [address] [place] [address]. [place] [address] Care Team Providers Care Merchandising Team Lead Name Role Phone Jovany Gonzalez MD Unavailable CrissyStaci jeong NP Unavailable [phone] Unavailable [phone] Roshni Nascimento RN Unavailable Unavailable Kiet Swain MD Unavailable [phone] Winsome Pike APRN REGISTERED NURSE FETAL Unavailable [phone] Tori Hines [facility] Unavailable Miranda Queen [facility] Unavailable Unavailable Marisel Armando MD Unavailable Wesley Barrett MD Unavailable [phone] Dyan Fuentes MD Primary Care Provider [phone] Dyan Fuentes MD Unavailable [phone] Katiana Read MD Unavailable [phone] Mary Del Cid HADOOP ENGINEER Unavailable [phone] Elham Stack [facility] Unavailable [phone] Michelle Guzman DPM, Podiatry /Foot and Ankle Surgery Unavailable Dyan Fuentes MD Unavailable Aubrey Jones MD Unavailable [phone] Blanquita Morales Unavailable Unavailable Aubrey Jones MD Unavailable [phone] Encounter Details Date Type Department Care Team (Late st Contact Info) Description 03/30/2023 MyC Medical Advice [facility] [address] [place] [address] Panchito Bustamante, MANNEQUIN MOLD MAKER Social History Tobacco Use Types Packs/Day Years [...] How often do you attend chur or judaism services? 1 to 4 times per year [...] Answer Date Recorded PHQ-2 Score 2 11/25/2022 [facility] of Occupat ional Health - Occupational Stress [...] Info) Description 08/18/2023 3:00 PM DIRECTOR OF REHABILITATION AND WELLNESS Office Visit [facility] [facility] [address] [place] [phone] Katiana Read MD [address] [place] [address] documented as of this encounter Visit Diagnoses Not on filedocumented in this encounter Additional Health Concerns Assessment Noted Time PHQ-9 Depression Total Score: 10 023 8:26 AM CDT documented as of this encounter Care Teams Merchandising Team Lead Relationship Specialty [place] [address] [place] [address] PCP - General Family Medicine 05/18/22 Jovany Gonzalez MD [facility] [address] [facility] 605 [place] [address] Orthopedics 02/15/17 Staci Woodward HADOOP ENGINEER [place] [address] [place] [address] Nurse Practitioner Nurse Practitioner Psych/Mental Health 05/10/17 Reanna Smith, LAURA [address] [address] Type Inspector Dietitian, Registered 07/25/19 Roshni Nascimento, RN Personal Advocate & Liaison (PAL) Family Medicine 08/18/20 Kiet Swain MD [address] [facility] [address] [place] [address] Referring Physician Psychiatry 09/19/20 Winsome Pike APRN CNP [address] [place] [address] Nurse Practitioner Psychiatry 09/19/20 Tori Hines, [facility] [address] [place] [address] Yardage Tufting Machine Operator Yardage Tufting Machine Operator - Clinical 09/19/20 Miranda Queen [facility] [address] [place] [address] Pharmacist Pharmacist 11/12/20 Marisel Armando MD [address] [place], [place] [address] Gastroenterology 02/05/21 Wesley Barrett MD [address] [facility] 96 [place], [place] [address] Assigned Neuroscience Provider 05/10/21 [place] [address] [place] [address] Assigned PCP 05/15/22 Katiana Read MD [address] [facility] 200 [place], [place] [address] Assigned Endocrinology Provider 06/19/22 [place] [address] [place] [address] Nurse Practitioner Nurse Practitioner 10/18/22 Elham Stack, [facility] [address] [place] [address] Pharmacist Pharmacist 10/19/22 Michelle Guzman DPM, Podiatry/Foot and Ankle Surgery [address] [place] [address] Assigned Musculoskeletal Provider 10/16/22 04/08/23 [place] [address] [place] [address] Assigned Pain Medication Provider 12/04/22 04/01/23 Aubrey Jones MD [address] [place] [address] Cardiovascular Disease 03/28/23 Blanquita Morales Type Inspector Diabetes Education 04/25/23 Aubrey Jones MD [address] [place] [address] Assigned Heart and Vascular Provider 05/07/23 documented as of this encounter
--- OUTSIDE RECORDS SUMMARY | 2023-08-03 12:39 | XMS_ITS | Encounter Summary ---
Author Name Unknown Organization [place] Address [address] [place] [address]. [place] [address] Care Team Providers Care Mid Level Net Developer Name Role Phone Jovany Gonzalez MD Unavailable CrissyStaci jeong COMBINED RAIL OPERATOR Unavailable [phone] Unavailable Roshni Nascimento RN Unavailable Unavailable Kiet Swain MD Unavailable [phone] Winsome Pike APRN CADASTRAL ENGINEER Unavailable [phone] Tori Hines [facility] Unavailable Miranda Queen [facility] Unavailable Unavailable Marisel Armando MD Unavailable Wesley Barrett MD Unavailable [phone] Dyan Fuentes MD Primary Care Provider [phone] Dyan Fuentes MD Unavailable [phone] Katiana Read MD Unavailable [phone] Mary Del Cid COMBINED RAIL OPERATOR Unavailable [phone] [facility] Unavailable [phone] Michelle GuzmanM, Podiatry /Foot and Ankle Surgery Unavailable Aubrey Jones MD Unavailable [phone] DarwinshellchristiBlanquita Unavailable Unavailable Aubrey Jones MD Unavailable + [phone] Reason for Referral * Patient Education (Priority: 1-2 Weeks) - Pending Review Specialty Diagnoses / Procedures Referred By Contlennox t Referred To Contact Diabetes Education Diagnoses Type 2 diabetes mellitus without complication, without long-term current use of insulin (H) Katiana Read MD [address] [facility] 200 [place] [address] Referral ID Status Reason Start Date Expiration Date V isits Requested Visits Authorized [id number] Pending Review 04/08/2023 04/07/2024 1 1 Question [...] office within 2 business days, please call [phone] for [facility], for [facility] or [phone] for the [facility]. Medicare covers: 10 hours of initial DSMT [...] and G0109) and Medical Nutrition Therapy (Codes 06082 and 54825) benefits and ask which blood glucose monitor [...] st Contact Info) Description 04/06/[address] [facility] [address] [facility] [address] [place] [address] Katiana Read MD [address] [place] [address] [place] [address] Call Back (Blood Sugar) Social [...] you attend chur ch or mormon services? 1 to 4 times per year [...] Answer Date Recorded PHQ-2 Score 2 11/25/2022 [facility] - Occupational Stress Questionnaire Answer [...] in a fpc (including now)? No 10/16/2021 Adolescent Education Answer [...] Benites RN - 04/08/2023 8:22 AM CDT Cadastral Engineer attempted to contact pt to discuss below [...] dm managed by PCP Message sent via Shoptagr. Zenobia Benites CMA [facility] [phone] * Telephone Encounter - Nhi Wong RN [...] Chew - 04/06/2023 12:30 PM CDT M [facility] Call Center Phone Message May a [...] st Contact Info) Description 08/18/2023 3:00 PM REMOTELY PILOTED VEHICLE CONTROLLER Office Visit [facility] [address] [place] [address] Katiana Read MD [address] [place] [address] [place] [address] Scheduled Referrals Name Type Priority Associated Diagnoses Orde r Schedule AMB Adult Hardboard Factory Worker Referral Referral Priority: 1-2 Weeks Type 2 [...] documented as of this encounter Care Teams Mid Level Net Developer Relationship Specialty [place] [address] [place] [address] PCP - General Family Medicine 05/18/22 Jovany Gonzalez MD [facility] [address] [facility] [address] [place], [place] [address] Orthopedics 02/15/17 Staci Woodward COMBINED RAIL OPERATOR [facility] [address] [place], [place] [address] Nurse Practitioner Nurse Practitioner Psych/Mental Health 05/10/17 Reanna Smith, RD [facility] [address] [place], [place] [address] Hardboard Factory Worker Dietitian, Registered 07/25/19 Roshni Nascimento RN Personal Advocate & Liaison (PAL) Family Medicine 08/18/20 Kiet Swain MD 2450 [facility]15 [place], [place] [address] Referring Physician Psychiatry 09/19/20 Winsome Pike APRN CADASTRAL ENGINEER [address] [address] Nurse Practitioner Psychiatry 09/19/20 Tori Hines, [facility] 2450 [place], [place] [address] Woodwind Instrument Repairer Woodwind Instrument Repairer - Clinical 09/19/[address] [facility] [address] [place] [address] Pharmacist Pharmacist 11/12/20 Marisel Armando MD 909 [place] [address] Gastroenterology 02/05/21 Wesley Barrett MD 420 [facility] 96 [place] [address] Assigned Neuroscience Provider 05/10/21 [place] [address] [place] [address] Assigned PCP 05/15/22 Katiana Read MD [address] [address] Assigned Endocrinology Provider 06/19/22 Mary Del Cid, RAFAEL [address] [place] [address] Nurse Practitioner Nurse Practitioner 10/18/22 Elham Stack, [facility] 30[address] [place] [address] Pharmacist Pharmacist 10/19/22 Michelle Guzman DPM, Podiatry/Foot and Ankle Surgery [address] [place] [place] [address] Assigned Musculoskeletal Provider 10/16/22 04/08/23 Aubrey Jones MD [address] [place] [address] Cardiovascular Disease 03/28/23 Blanquita Morales Hardboard Factory Worker Diabetes Education 04/25/23 Aubrey Jones MD [address] [place] [address] Assigned Heart and Vascular Provider 05/07/23 documented as of this encounter
--- OUTSIDE RECORDS SUMMARY | 2023-08-03 12:39 | XMS_ITS | Encounter Summary ---
Author Name Unknown Organization [place] Address [address] [place] [address]. [place] [address] Care Team Providers Care Warehouse Order Selector Name Role Phone Jovany Gonzalez MD Unavailable CrissyStaci jeong CATERING ASSISTANT Unavailable Reanna Smith RD Unavailable Roshni Nascimento RN Unavailable Unavailable Kiet Swain MD Unavailable [phone] Winsome Pike APRN ROOMS DIRECTOR Unavailable [phone] Tori Hines [facility] Unavailable Miranda Queen [facility] Unavailable Unavailable Marisel Armando MD Unavailable Wesley Barrett MD Unavailable [phone] Dyan Fuentes MD Primary Care Provider [phone] Dyan Fuentes MD Unavailable [phone] Katiana Read MD Unavailable [phone] Mary Del Cid CATERING ASSISTANT Unavailable [phone] Elham Stack [facility] Unavailable [phone] Michelle GuzmanM, Podiatry /Foot and Ankle Surgery Unavailable Aubrey Jones MD Unavailable [phone] Blanquita Morales Unavailable Unavailable Aubrey Jones MD Unavailable [phone] Encounter Details Date Type Department Care Team (Late st Contact Info) Description 04/07/2023 MyC Medical Advice [facility] [address] [place] [address] Rachelle Benites, EDITORIAL ASSISTANT Social History Tobacco Use Types Packs/Day Years [...] you attend [facility] or zoroastrianism services? 1 to 4 times [...] Answer Date Recorded PHQ-2 Score 2 11/25/2022 [facility] [place] of Occupat ional Health - Occupational Stress [...] in a longterm (including now)? No 10/16/2021 Adolescent Education Answer [...] st Contact Info) Description 08/18/2023 3:00 PM CORPORATE LICENSED BROKER Office Visit [place] [address] [place] [phone] Katiana Read MD [address] [place] [address] documented as of this encounter Visit Diagnoses Not on filedocumented in this encounter Additional Health Concerns Assessment Noted Time PHQ-9 Depression Total Score: 10 023 8:26 AM CDT documented as of this encounter Care Teams Warehouse Order Selector Relationship Specialty [place] [address] [place] [address] PCP - General Family Medicine 05/18/22 Jovany Gonzalez MD [facility] 6600 [facility] 605 [place] [address] Orthopedics 02/15/17 Staci Woodward CATERING ASSISTANT [address] [address] Nurse Practitioner Nurse Practitioner Psych/Mental Health 05/10/17 Reanna Smith, LAURA [address] [address] Steel Erector Dietitian, Registered 07/25/19 Roshni Nascimento RN Personal Advocate & Liaison (PAL) Family Medicine 08/18/20 Kiet Swain MD 2450 [facility] NG15 [place] [address] Referring Physician Psychiatry 09/19/20 Winsome Pike APRN CNP [address] [place] [address] Nurse Practitioner Psychiatry 09/19/20 Tori Hines, [facility] 2450 [place] [address] Primary Operator Primary Operator - Clinical 09/19/20 Miranda Queen, [facility] [address] [place] [address] Pharmacist Pharmacist 11/12/20 Marisel Armando MD 909 [place], [place] [address] Gastroenterology 02/05/21 Wesley Barrett MD 420 [facility] 96 [place], [place] [address] Assigned Neuroscience Provider 05/10/21 [place] [address] [place] [address] Assigned PCP 05/15/22 Katiana Read MD [address] [address] Assigned Endocrinology Provider 06/19/22 [place] [address] [place] [address] Nurse Practitioner Nurse Practitioner 10/18/22 Elham Stack, [facility] [address] [place] [address] Pharmacist Pharmacist 10/19/22 Michelle Guzman, DPM, Podiatry/Foot and Ankle Surgery [address] [place] [address] Assigned Musculoskeletal Provider 10/16/22 04/08/23 Aubrey Jones MD [address] [place] [address] Cardiovascular Disease 03/28/23 Blanquita Morales Steel Erector Diabetes Education 04/25/23 Aubrey Jones MD [address] [place] [address] Assigned Heart and Vascular Provider 05/07/23 documented as of this encounter
--- OUTSIDE RECORDS SUMMARY | 2023-08-03 12:40 | XMS_ITS | Encounter Summary ---
Author Name Unknown Organization [place] Address [address] [place] [address]. [place] [address] Care Team Providers Care Housekeeper Head Name Role Phone Jovany Gonzalez MD Unavailable CrissyStaci jeong NP Unavailable [phone] Unavailable Roshni Nascimento RN Unavailable Unavailable Kiet Swain MD Unavailable [phone] Winsome Pike APRN LAWYER CRIMINAL Unavailable [phone] Tori Hines [facility] Unavailable Miranda Queen [facility] Unavailable Unavailable Marisel Armando MD Unavailable Wesley Barrett MD Unavailable [phone] Dyan Fuentes MD Primary Care Provider [phone] Dyan Fuentes MD Unavailable [phone] Katiana Read MD Unavailable [phone] Mary Del Cid RN TRANSPORT Unavailable [phone] Elham Stack [facility] Unavailable [phone] Michelle Guzman DPM, Podiatry /Foot and Ankle Surgery Unavailable Dyan Fuentes MD Unavailable Aubrey Jones MD Unavailable [phone] Encounter Details Date Type Department Care Team [...] you attend chur ch or buddhist services? 1 to 4 times per year [...] Date Recorded PHQ-2 Score 2 11/25/2022 [facility] [place] of Occupat ional Health - Occupational Stress [...] st Contact Info) Description 08/18/2023 3:00 PM CASING GRADER Office Visit [facility] [address] [place] [address] Katiana Read MD [address] [facility] 200 [place], [place] [address] documented as of this encounter Visit Diagnoses Not on filedocumented in this encounter Additional Health Concerns Assessment Noted Time PHQ-9 Depression Total Score: 10 023 8:26 AM CDT documented as of this encounter Care Teams Housekeeper Head Relationship Specialty [place] [address] [place] [address] PCP - General Family Medicine 05/18/22 Jovany Gonzalez MD [facility] 6600 [facility] 605 [place], [place] [address] Orthopedics 02/15/17 Staci Woodward RN TRANSPORT [place] [address] [place], [place] [address] Nurse Practitioner Nurse Practitioner Psych/Mental Health 05/10/17 Reanna Smith, LAURA [place] [address] [place] [address] Homemaking Rehabilitation Consultant Dietitian, Registered 07/25/19 Roshni Nascimento, RN Personal Advocate & Liaison (PAL) Family Medicine 08/18/20 Kiet Swain MD 2450 [facility]15 [place] [address] Referring Physician Psychiatry 09/19/20 Winsome Pike APRN LAWYER CRIMINAL [address] [address] Nurse Practitioner Psychiatry 09/19/20 Tori Hines [facility] 2450 [place] [address] Gi Physician Gi Physician - Clinical 09/19/20 Miranda Queen [facility] [address] [place] [address] Pharmacist Pharmacist 11/12/20 Marisel Armando MD 909 [place], [place] [address] Gastroenterology 02/05/21 Wesley Barrett MD 420 [facility] 96 [place] [address] Assigned Neuroscience Provider 05/10/21 [place] [address] [place] [address] Assigned PCP 05/15/22 Katiana Read MD [address] [facility] 200 [place], [place] [address] Assigned Endocrinology Provider 06/19/22 Mary Del Cid, RAFAEL [address] [place] [address] Nurse Practitioner Nurse Practitioner 10/18/22 Elham Stack, [facility] [address] [place] [address] Pharmacist Pharmacist 10/19/22 Michelle Guzman DPM, Podiatry/Foot and Ankle Surgery [address] [place] [address] [address] Assigned Musculoskeletal Provider 10/16/22 04/08/23 [place] [address] [place] [address] Assigned Pain Medication Provider 12/04/22 04/01/23 Aubrey Jones MD [address] [place] [address] Cardiovascular Disease 03/28/23 documented as of this encounter
--- OUTSIDE RECORDS SUMMARY | 2023-08-03 12:40 | XMS_ITS | Encounter Summary ---
Author Name Unknown Organization [place] Address [address] [place] [address]. [place] [address] Care Team Providers Care Securities Vault Supervisor Name Role Phone Jovany Gonzalez MD Unavailable CrissyStaci jeong GRAPHICS SOFTWARE ENGINEER Unavailable [phone] Unavailable Roshni Nascimento RN Unavailable Unavailable Kiet Swain MD Unavailable [phone] Winsome Pike APRN PIER MASTER Unavailable [phone] Tori Hines [facility] Unavailable Miranda Queen [facility] Unavailable Unavailable Marisel Armando MD Unavailable Wesley Barrett MD Unavailable [phone] Dyan Fuentes MD Primary Care Provider [phone] Dyan Fuentes MD Unavailable [phone] Katiana Read MD Unavailable [phone] Meme Singleton PhD Unavailable [phone] Mary Del Cid GRAPHICS SOFTWARE ENGINEER Unavailable + [phone] Elham Stack [facility] Unavailable [phone] Michelle Guzman DPM, Podiatry /Foot and Ankle Surgery Unavailable Dyan Fuentes MD Unavailable [phone] Encounter Details Date Type Department Care Team [...] often do you attend chur ch or cheondoism services? 1 to 4 times [...] Answer Date Recorded PHQ-2 Score 2 11/25/2022 [facility] [place] of Occupat ional Health - Occupational Stress [...] st Contact Info) Description 08/18/2023 3:00 PM LEADERSHIP COACH Office Visit [facility] [address] [place] [address] Katiana Read MD [address] [facility] 200 [place] [address] documented as of this encounter Visit Diagnoses Not on filedocumented in this encounter Additional Health Concerns Assessment Noted Time PHQ-9 Depression Total Score: 10 023 8:26 AM CDT documented as of this encounter Care Teams Securities Vault Supervisor Relationship Specialty [place] [address] [place] [address] PCP - General Family Medicine 05/18/22 Jovany Gonzalez MD [facility] 6600 [facility] 605 [place], [place] [address] Orthopedics 02/15/17 Staci Woodward GRAPHICS SOFTWARE ENGINEER [place] [address] [place] [address] Nurse Practitioner Nurse Practitioner Psych/Mental Health 05/10/17 Reanna Smith, RD [place] [address] [place] [address] Ground Operations Superintendent Dietitian, Registered 07/25/19 Roshni Nascimento, RN Personal Advocate & Liaison (PAL) Family Medicine 08/18/20 Kiet Swain MD 2450 [facility]15 [place] [address] Referring Physician Psychiatry 09/19/20 Winsome Pike APRN PIER MASTER [address] [place] [address] Nurse Practitioner Psychiatry 09/19/20 Tori Hines [facility] 2450 [place], [place] [address] Auto Tune Up Mechanic Auto Tune Up Mechanic - Clinical 09/19/20 Miranda Queen [facility] [address] [place] [address] Pharmacist Pharmacist 11/12/20 Marisel Armando MD 909 [place], [place] [address] Gastroenterology 02/05/21 Wesley Barrett MD 420 [facility] 96 [place], [place] [address] Assigned Neuroscience Provider 05/10/21 [place] [address] [place] [address] Assigned PCP 05/15/22 Katiana Read MD [address] [facility] 200 [place], [place] [address] Assigned Endocrinology Provider 06/19/22 Meme Singleton[place] PhD [address] [place] [address] Assigned Behavioral Health Provider 07/03/22 12/31/22 Mary Del Cid, RAFAEL [address] [place] [address] Nurse Practitioner Nurse Practitioner 10/18/22 Elham Stack [facility] [address] [place] [address] Pharmacist Pharmacist 10/19/22 Michelle Guzman, ERIC, Podiatry/Foot and Ankle Surgery [address] [place] [address] Assigned Musculoskeletal Provider 10/16/22 04/08/23 [place] [address] [place] [address] Assigned Pain Medication Provider 12/04/22 04/01/23 documented as of this encounter
--- OUTSIDE RECORDS SUMMARY | 2023-08-03 12:40 | XMS_ITS | Encounter Summary ---
Author Name Unknown Organization [place] Address [address] [place] [address]. [place] [address] Care Team Providers Care Irrigating Pump Operator Name Role Phone Jovany Gonzalez MD Unavailable CrissyStaci jeong NP Unavailable [phone] Unavailable Roshni Nascimento RN Unavailable Unavailable Kiet Swain MD Unavailable [phone] Winsome Pike APRN CNA LTC Unavailable [phone] Tori Hines [facility] Unavailable Miranda Queen [facility] Unavailable Unavailable Marisel Armando MD Unavailable Wesley Barrett MD Unavailable [phone] Dyan Fuentes MD Primary Care Provider [phone] Dyan Fuentes MD Unavailable [phone] Katiana Read MD Unavailable [phone] Mary Del Cid AUDIO OPERATOR Unavailable [phone] Elham Stack [facility] Unavailable [phone] Michelle Guzman DPM, Podiatry /Foot and Ankle Surgery Unavailable Dyan Fuentes MD Unavailable Reason for Visit * Reason Onset Date Comments Opioid Refill 01/27/2023 buprenorphine HC l-naloxone HCl (SUBOXONE) 2-0.5 MG per film Encounter Details Date Type Department Care Team (Late st Contact Info) Description 01/27/2023 Refill [facility] [place] [address] [facility] [address] [place], [place] [address] [place] [address] [place] [id number] Opioid Refill (buprenorphine HCl-naloxone HCl (SUBOXONE) 2-0.5 [...] PT refresher course, okay to check with carbonizer tester first. - buprenorphine HCl-naloxone HCl (SUBOXONE) 2-0.5 MG per film; Place 1 Film under the tongue 3 times daily OK to fill 11/27/22 start 11/29/22. May refill every 30 days. Dispense: 90 Film; Refill: 2 ?? [facility] - [place], [place] - [address] [facility] [address] [facility] [address] Janine Raymundo RN Rolled Materials Worker [facility] * Telephone Encounter [...] Date of opioid agreement: 11/12/2022. E-prescribe to: [facility] - [address] Will route to [facility] for review and preparation of prescription(s). * Telephone Encounter - Janine Argueta RN - 01/27/2023 11:59 AM CDT Will route to [facility] for assistance with gathering opioid refill information. Janine Raymundo RN Rolled Materials Worker [facility] * Telephone Encounter - Misty Monroy - 01/27/2023 11:56 AM CDT [facility] Phone Message May a detailed message be left on voicemail: yes Reason for Call: Medication Refill Request Has the patient contacted the pharmacy for the refill? Yes Name of medication being requested: buprenorphine HCl-naloxone HCl (SUBOXONE) 2- 0.5 MG per film Provider who prescribed the medication: Mary Del Cid NP Pharmacy: [facility] - [address] Date medication is needed: 01/31/2023 Action Taken: Message routed to: Other: [facility] Pain Travel Screening: Not Applicable documented in this encounter Plan of Treatment Upcoming Encounters Date Type Department Care Team (Late st Contact Info) Description 08/18/2023 3:00 PM DISTRIBUTION SYSTEM OPERATOR Office Visit [facility] [address] [place] [address] Katiana Read MD [address] [place] [address] documented as of this encounter Visit Diagnoses Diagnosis Chronic pain syndrome documented in this encounter Additional Health Concerns Assessment Noted Time PHQ-9 Depression Total Score: 10 023 8:26 AM CDT documented as of this encounter Care Teams Irrigating Pump Operator Relationship Specialty [place] [address] [place] [address] PCP - General Family Medicine 05/18/22 Jovany Gonzalez MD [facility] [address]00 [facility] [address] [place], [place] [address] Orthopedics 02/15/17 Staci Woodward NP [place] [address] [place], [place] [address] Nurse Practitioner Nurse Practitioner Psych/Mental Health 05/10/17 Reanna Smith, RD [facility] [address] [place], [place] [address] 3Rd Grade Teacher Dietitian, Registered 07/25/19 Roshni Nascimento, RN Personal Advocate & Liaison (PAL) Family Medicine 08/18/20 Kiet Swain MD [address] [place], [place] [address] [place], [place] [address] Referring Physician Psychiatry 09/19/20 Winsome Pike APRN CNA LTC [address] [address] Nurse Practitioner Psychiatry 09/19/20 Tori Hines, [facility] [address] [place] [address] Wastewater Analyst Lab Analyst Wastewater Analyst Lab Analyst - Clinical 09/19/20 Miranda Queen [facility] [address] [place] [address] Pharmacist Pharmacist 11/12/20 Marisel Armando MD 909 [place] [address] Gastroenterology 02/05/21 Wesley Barrett MD 420 [facility] 96 [place] [address] Assigned Neuroscience Provider 05/10/21 [place] [address] [place] [address] Assigned PCP 05/15/22 Katiana Read MD [address] [facility] 200 [place], [place] [address] Assigned Endocrinology Provider 06/19/22 [place] [address] [place] [address] Nurse Practitioner Nurse Practitioner 10/18/22 Elham Stack, [facility] 30[address] [place] [address] Pharmacist Pharmacist 10/19/22 Michelle Guzman DPM, Podiatry/Foot and Ankle Surgery [address] [place] [address] Assigned Musculoskeletal Provider 10/16/22 04/08/23 [place] [address] [place] [address] Assigned Pain Medication Provider 12/04/22 04/01/23 documented as of this encounter
--- OUTSIDE RECORDS SUMMARY | 2023-08-03 12:40 | XMS_ITS | Encounter Summary ---
Author Name Unknown Organization [facility] Address [address] [place] [address]. [place] [address] Care Team Providers Care Food Science Technician Name Role Phone Jovany Gonzalez MD Unavailable [phone] CrissyStaci jeong NP Unavailable [phone] Unavailable Roshni Nascimento RN Unavailable Unavailable Kiet Swain MD Unavailable [phone] Winsome Pike APRN PROPERTY STAFF ACCOUNTANT Unavailable [phone] [facility] Unavailable Miranda Queen [facility] Unavailable Unavailable Marisel Armando MD Unavailable Wesley Barrett MD Unavailable [phone] Dyan Fuentes MD Primary Care Provider [phone] Dyan Fuentes MD Unavailable [phone] Katiana Read MD Unavailable [phone] Mary Del Cid SUPERVISOR CONCRETE STONE FABRICATING Unavailable [phone] Elham Stack [facility] Unavailable [phone] Michelle Guzman DPM, Podiatry /Foot and Ankle Surgery Unavailable Dyan Fuentes MD Unavailable Reason for Visit * Reason Onset Date Comments Prior Auth - Medication 03/17/2023 buprenor phine HCl-naloxone HCl (SUBOXONE) 4-1 MG per film - PA not needed Encounter Details Date Type Department Care Team (Late st Contact Info) Description 03/17/2023 Telephone [facility] [place] [address] [facility] [address] [place], [place] [address] [place] [address] [place] [id number] Prior Auth - Medication (buprenorphine HCl-naloxone HCl [...] [facility] of Occupat ional [facility] - Occupational Stress Questionnaire Answer [...] HCL 4-1 MG SL FILM Insurance Company: 2-Observe - Expected CoPay: Pharmacy Filling the Rx: [email or web address] - [email or web address], [address] Pharmacy Notified: Yes Patient Notified: Yes [...] Rob Hernandez LOB:None Plan year: 07/11/2022 - [place] Effective dates: 07/11/2012 - [place] Group number: [id number] Insurance ID: Pharmacy Information (if different than what is on RX) Name: [employer] Fax: documented in this encounter Plan of Treatment Upcoming Encounters Date Type Department Care Team (Late st Contact Info) Description 08/18/2023 3:00 PM BUSINESS PERFORMANCE MANAGER Office Visit [facility] [address] [place] [address] Katiana Read MD [address] [place] [address] documented as of this encounter Visit Diagnoses Not on filedocumented in this encounter Additional Health Concerns Assessment Noted Time PHQ-9 Depression Total Score: 10 023 8:26 AM CDT documented as of this encounter Care Teams Food Science Technician Relationship Specialty [place] [address] [place], [place] [address] PCP - General Family Medicine 05/18/22 Jovany Gonzalez MD [facility] 6600 [facility] 605 [place] [address] Orthopedics 02/15/17 Stcai Woodward SUPERVISOR CONCRETE STONE FABRICATING [facility] [address] [place] [address] Nurse Practitioner Nurse Practitioner Psych/Mental Health 05/10/[address] [facility] [address] [place] [address] Tractor Trailer Moving Van Driver Dietitian, Registered 07/25/19 Roshni Nascimento, RN Personal Advocate & Liaison (PAL) Family Medicine 08/18/20 Kiet Swain MD 2450 [facility] [address]15 [place] [address] Referring Physician Psychiatry 09/19/20 Winsome Pike APRN PROPERTY STAFF ACCOUNTANT [address] [place] [address] Nurse Practitioner Psychiatry 09/19/20 Tori Hines, [facility] [address] [facility] [address] Dining Chair Seat Cushion Trimmer Dining Chair Seat Cushion Trimmer - Clinical 09/19/20 Miranda Queen [facility] [address] [place] [address] Pharmacist Pharmacist 11/12/20 Marisel Armando MD 909 [place], [place] 8[address] Gastroenterology 02/05/21 Wesley Barrett MD 420 [facility] 96 [place], [place] [address] Assigned Neuroscience Provider 05/10/21 [place] [address] [place] [address] Assigned PCP 05/15/22 Katiana Read MD [address] [facility] 200 [place], [place] [address] Assigned Endocrinology Provider 06/19/22 [place] [address] [place], [place] [address] Nurse Practitioner Nurse Practitioner 10/18/22 Elham Stack [facility] [address] [place] [address] Pharmacist Pharmacist 10/19/22 Michelle Guzman DPM, Podiatry/Foot and Ankle Surgery [address] [facility] 300 [place], [place] [address] Assigned Musculoskeletal Provider 10/16/22 04/08/23 [place] [address] [place] [address] Assigned Pain Medication Provider 12/04/22 04/01/23 documented as of this encounter
--- OUTSIDE RECORDS SUMMARY | 2023-08-03 12:40 | XMS_ITS | Encounter Summary ---
Author Name Unknown Organization [facility] Address [address] [place] [address]. [place] [address] Care Team Providers Care Pipeline Technician Name Role Phone Jovany Gonzalez MD Unavailable CrissyStaci jeong NP Unavailable [phone] Unavailable Roshni Nascimento RN Unavailable Unavailable Kiet Swain MD Unavailable [phone] Winsome Pike APRN TECHNICAL SERVICES REP Unavailable [phone] Tori H[address] [facility] Unavailable Miranda Queen [facility] Unavailable Unavailable Marisel Armando MD Unavailable Wesley Barrett MD Unavailable [phone] Dyan Fuentes MD Primary Care Provider [phone] Dyan Fuentes MD Unavailable [phone] Katiana Read MD Unavailable [phone] Mary Del Cid ASSOCIATE PROFESSOR OF FORESTRY Unavailable [phone] Elham Stack [facility] Unavailable [phone] Michelle Guzman DPM, Podiatry /Foot and Ankle [...] you attend [facility] or zoroastrianism services? 1 to 4 times [...] Answer Date Recorded PHQ-2 Score 2 11/25/2022 [facility] of Occupat ional Health - Occupational Stress [...] st Contact Info) Description 08/18/2023 3:00 PM MUFFLER INSTALLER Office Visit [facility] [address] [place] [phone] Katiana Read MD [address] [place], [place] [address] documented as of this encounter Visit Diagnoses Not on filedocumented in this encounter Additional Health Concerns Assessment Noted Time PHQ-9 Depression Total Score: 10 023 8:26 AM CDT documented as of this encounter Care Teams Pipeline Technician Relationship Specialty [place] [address] [place] [address] PCP - General Family Medicine 05/18/22 Jovany Gonzalez MD [facility] 6600 [facility] 605 [place], [place] 46[address] Orthopedics 02/15/17 Staci Woodward, ASSOCIATE PROFESSOR OF FORESTRY [facility] [address] [place], [place] 3[address] Nurse Practitioner Nurse Practitioner Psych/Mental Health 05/10/17 Reanna Smith, RD [facility] [address] [place], [place] 47[address] Relations Manager Dietitian, Registered 07/25/19 Roshni Nascimento, RN Personal Advocate & Liaison (PAL) Family Medicine 08/18/20 Kiet Swain MD 2450 [facility]15 [place], [place] [address] Referring Physician Psychiatry 09/19/20 Winsome Pike APRN TECHNICAL SERVICES REP [address] [address] Nurse Practitioner Psychiatry 09/19/20 Tori H[place], [facility] 2450 [place], [place] 140[address] Optical Engineering Manager Optical Engineering Manager - Clinical 09/19/20 Miranda Queen [facility] [address] [place] [address] Pharmacist Pharmacist 11/12/20 Marisel Armando MD 909 [place], [place] [address] Gastroenterology 02/05/21 Wesley Barrett MD 420 [facility] 96 [place] [address] Assigned Neuroscience Provider 05/10/21 [place] [address] [place] [address] Assigned PCP 05/15/22 Katiana Read MD [address] [place] [address] Assigned Endocrinology Provider 06/19/22 Mary Del Cid, RAFAEL [address] [place] [address] Nurse Practitioner Nurse Practitioner 10/18/22 Elham Stack, [facility] 3033 [place] [address] Pharmacist Pharmacist 10/19/22 Michelle Guzman DPM, Podiatry/Foot and Ankle Surgery [address] [place] [address] Assigned Musculoskeletal Provider 10/16/22 04/08/23 [place] [address] [place] [address] Assigned Pain Medication Provider 12/04/22 04/01/23 documented as of this encounter
--- OUTSIDE RECORDS SUMMARY | 2023-08-03 12:40 | XMS_ITS | Encounter Summary ---
Author Name Unknown Organization [facility] Address [address] [place] [address]. [place] [address] Care Team Providers Care Cutter Machine Name Role Phone Jovany Gonzalez MD Unavailable CrissyStaci jeong NP Unavailable [phone] Unavailable Roshni Nascimento RN Unavailable Unavailable Kiet Swain MD Unavailable [phone] Winsome Pike APRN NURSE PRACTITIONER Unavailable [phone] Tori [address] [facility] Unavailable Miranda Queen [facility] Unavailable Unavailable Marisel Armando MD Unavailable Wesley Barrett MD Unavailable [phone] Dyan Fuentes MD Primary Care Provider [phone] Dyan Fuentes MD Unavailable [phone] Katiana Read MD Unavailable [phone] Mary Del Cid MANAGED SERVICES CONSULTANT Unavailable [phone] Elham Stack [facility] Unavailable [phone] Michelle Guzman DPM, Podiatry /Foot and Ankle [...] How often do you attend chur or congregation services? 1 to 4 times per year [...] Answer Date Recorded PHQ-2 Score 2 11/25/2022 [facility] of Occupat ional Health - Occupational Stress [...] Contact Info) Description 08/18/2023 3:00 PM SPECIAL EDUCATION ADMINISTRATOR Office Visit [facility] [address] [place] [address] Katiana Read MD [address] [facility] 200 [place] [address] documented as of this encounter Visit Diagnoses Not on filedocumented in this encounter Additional Health Concerns Assessment Noted Time PHQ-9 Depression Total Score: 10 023 8:26 AM CDT documented as of this encounter Care Teams Cutter Machine Relationship Specialty [place] [address] [place] [address] PCP - General Family Medicine 05/18/22 Jovany Gonzalez MD [facility] 6600 [facility] 605 [place], [place] [address] Orthopedics 02/15/17 Staci Woodward MANAGED SERVICES CONSULTANT [place] [address] [place] [address] Nurse Practitioner Nurse Practitioner Psych/Mental Health 05/10/17 Reanna Smith, RD [place] [address] [place] [address] Forming Roll Operator Dietitian, Registered 07/25/19 Roshni Nascimento, RN Personal Advocate & Liaison (PAL) Family Medicine 08/18/20 Kiet Swain MD 2450 [facility]15 [place] [address] Referring Physician Psychiatry 09/19/20 Winsome Pike APRN NURSE PRACTITIONER [address] [place] [address] 391754 Nurse Practitioner Psychiatry 09/19/20 Tori Hines [facility] 2450 [place], [place] [address] Household Chores Household Chores - Clinical 09/19/20 Miranda Queen [facility] 10449 [place] [address] Pharmacist Pharmacist 11/12/20 Marisel Armando MD 909 [place], [place] 84[address] Gastroenterology 02/05/21 Wesley Barrett MD 420 [facility] 96 [place], [place] [address] Assigned Neuroscience Provider 05/10/21 [place] [address] [place] [address] Assigned PCP 05/15/22 Katiana Read MD [address] [facility] 200 [place], [place] [address] Assigned Endocrinology Provider 06/19/22 Mary Del Cid, RAFAEL [address] [place] [address] Nurse Practitioner Nurse Practitioner 10/18/22 Elham Stack, [facility] [address] [place] [address] Pharmacist Pharmacist 10/19/22 Michelle Guzman DPM, Podiatry/Foot and Ankle Surgery [address] [place] [address] Assigned Musculoskeletal Provider 10/16/22 04/08/23 [place] [address] [place] [address] Assigned Pain Medication Provider 12/04/22 04/01/23 [place] [address] [place] [place] [address] Nurse Practitioner Nurse Practitioner 01/17/23 01/17/23 documented as of this encounter
--- OUTSIDE RECORDS SUMMARY | 2023-08-03 12:40 | XMS_ITS | Encounter Summary ---
Author Name Unknown Organization [facility] Address [address] [place] [address]. [place] [address] Care Team Providers Care Delicatessen Slicer Name Role Phone Jovany Gonzalez MD Unavailable CrissyStaci jeong MEDICAL MASSAGE THERAPIST Unavailable [phone] Unavailable Roshni Nascimento RN Unavailable Unavailable Kiet Swain MD Unavailable [phone] Winsome Pike APRN PLASTICS PLATER Unavailable [phone] Tori H[address] [facility] Unavailable Miranda Queen [facility] Unavailable Unavailable Marisel Armando MD Unavailable Wesley Barrett MD Unavailable [phone] Dyan Fuentes MD Primary Care Provider [phone] Dyan Fuentes MD Unavailable [phone] Katiana Read MD Unavailable [phone] Meme Singleton PhD Unavailable [phone] Mary Del Cid MEDICAL MASSAGE THERAPIST Unavailable [phone] Elham Stack [facility] Unavailable [phone] Michelle Guzman DPM, Podiatry /Foot and Ankle Surgery Unavailable Dyan Fuentes MD Unavailable [phone] Reason for Visit * Reason Onset Date Comments Opioid Refill 12/28/2022 Suboxone - spoke with pharmacy, refill is available for dispense today. Patient notified. Encounter Details Date Type Department Care Team (Late st Contact Info) Description 12/28/2022 Telephone [facility] Pain Management [place] [address] [facility] [address] [place], [place] [phone] [place] [address] [place] [place] [address] Opioid Refill (Suboxone - spoke with pharmacy, [...] often do you attend chur ch or voodoo services? 1 to 4 times per year [...] Answer Date Recorded PHQ-2 Score 2 11/25/2022 [facility] of Occupat ional Health - [...] - 12/28/2022 9:26 AM CDT Routed to [facility] to gather required information for opioid refill. Blanquita LEAHY, RN Bankruptcy Processor [facility] Pain Management * Telephone Encounter - Blanquita Salguero - 12/28/2022 9:[address] [facility] Call Center Phone Message May a detailed message be left on voicemail: yes Reason for Call: Medication Refill Request Has the patient contacted the pharmacy for the refill? Yes Name of medication being requested: buprenorphine HCl-naloxone HCl (SUBOXONE) 2- 0.5 MG per film Provider who prescribed the medication: [facility] [place], [address] Date medication is needed: by 12/30/22 patient is going out of town Action Taken: Other: Pain Travel Screening: Not Applicable documented in this encounter Plan of Treatment Upcoming Encounters Date Type Department Care Team (Late st Contact Info) Description 08/18/2023 3:00 PM VETERINARY MEDICINE SCIENTIST Office Visit [facility] [address] [place] [phone] Katiana Read MD [address] [facility] 200 [place], [place] [address] documented as of this encounter Visit Diagnoses Not on filedocumented in this encounter Additional Health Concerns Assessment Noted Time PHQ-9 Depression Total Score: 10 023 8:26 AM CDT documented as of this encounter Care Teams Delicatessen Slicer Relationship Specialty [place] [address] [place] [address] PCP - General Family Medicine 05/18/22 Jovany Gonzalez MD [facility] 6600 [facility] 605 [place], [place] [address] Orthopedics 02/15/17 Staci Woodward MEDICAL MASSAGE THERAPIST [place] [address] [place], [place] 290[address] Nurse Practitioner Nurse Practitioner Psych/Mental Health 05/10/17 Reanna Smith, RD [place] [address] [place], [place] [address] Online Marketer Dietitian, Registered 07/25/19 Roshni Nascimento, RN Personal Advocate & Liaison (PAL) Family Medicine 08/18/20 Kiet Swain MD 2450 [facility]15 [place], [place] [address] Referring Physician Psychiatry 09/19/20 Winsome Pike APRN PLASTICS PLATER [address] [place] [address] Nurse Practitioner Psychiatry 09/19/20 Tori Hines [facility] 2450 [place], [place] [address] C Iron Worker C Iron Worker - Clinical 09/19/20 Miranda Queen [facility] [address] [place] [address] Pharmacist Pharmacist 11/12/20 Marisel Armando MD 909 [place], [place] [address] Gastroenterology 02/05/21 Wesley Barrett MD 420 [facility] 96 [place], [place] [address] Assigned Neuroscience Provider 05/10/21 [place] [address] [place] [address] Assigned PCP 05/15/22 Katiana Read MD [address] [facility] 200 [place], [place] [address] Assigned Endocrinology Provider 06/19/22 [place] PhD [address] [place] [address] Assigned Behavioral Health Provider 07/03/22 12/31/22 Mary Del Cid, RAFAEL [address] [place] [address] Nurse Practitioner Nurse Practitioner 10/18/22 Elham Stack, [facility] 3033 [place] [address] Pharmacist Pharmacist 10/19/22 Michelle Guzman DPM, Podiatry/Foot and Ankle Surgery [address] [place] [address] Assigned Musculoskeletal Provider 10/16/22 04/08/23 [place] [address] [place] [address] Assigned Pain Medication Provider 12/04/22 04/01/23 documented as of this encounter
--- OUTSIDE RECORDS SUMMARY | 2023-08-03 12:40 | XMS_ITS | Encounter Summary ---
Author Name Unknown Organization [facility] Address [address] [place] [address]. [place] [address] Care Team Providers Care Columnist Name Role Phone Jovany Gonzalez MD Unavailable CrissyStaci jeong NP Unavailable [phone] Unavailable [phone] Roshni Nascimento RN Unavailable Unavailable Kiet Swain MD Unavailable [phone] Winsome Pike APRN CAMERA TECHNICIAN Unavailable [phone] [facility] Unavailable Miranda Queen [facility] Unavailable Unavailable Marisel Armando MD Unavailable Wesley Barrett MD Unavailable [phone] Dyan Fuentes MD Primary Care Provider [phone] Dyan Fuentes MD Unavailable [phone] Katiana Read MD Unavailable [phone] Mary Del Cid BOLOGNA LACER Unavailable [phone] Elham Stack [facility] Unavailable [phone] Michelle Guzman DPM, Podiatry /Foot and Ankle Surgery Unavailable Dyan Fuentes MD Unavailable Aubrey Jones MD Unavailable [phone] Blanquita Morales Unavailable Unavailable Aubrey Jones MD Unavailable [phone] Reason for Visit * Reason Onset Date Comments Outreach 03/18/2023 PAL - cardiology follow up Encounter Details Date Type Department Care Team (Late st Contact Info) Description 03/18/2023 MyC Medical Advice [facility] [address] [place] [address] Roshni Nascimento, RN Outreach (PAL - [...] How often do you attend [facility] or amish services? 1 to 4 times per year 10/16/2021 Do you belong to any clubs o r organizations such as bahai groups, unions, fraternal or athletic groups, or [...] Date Recorded PHQ-2 Score 2 11/25/2022 [facility] of Occupat ional [facility] - Occupational Stress Questionnaire Answer Date [...] December Abnormal electrocardiogram - Adult Cardiology Eval Railroad Surveyor Referral; Future Roshni Nascimento RN documented in this encounter Plan of Treatment Upcoming Encounters Date Type Department Care Team (Late st Contact Info) Description 08/18/2023 3:00 PM SERVICE SECRETARY Office Visit [facility] [address] [facility] [address] [place] [address] Katiana Read MD [address] [place] [address] documented as of this encounter Visit Diagnoses Not on filedocumented in this encounter Additional Health Concerns Assessment Noted Time PHQ-9 Depression Total Score: 10 023 8:26 AM CDT documented as of this encounter Care Teams Columnist Relationship Specialty [place] [address] [place] [address] PCP - General Family Medicine 05/18/22 Jovany Gonzalez MD [facility] 6600 [facility] [address] [place], [place] [address] Orthopedics 02/15/17 Staci Woodward, BOLOGNA LACER [place] [address] [place], [place] [address] Nurse Practitioner Nurse Practitioner Psych/Mental Health 05/10/17 Reanna Smith, RD [place] [address] [place] [address] Turnaround Engineer Dietitian, Registered 07/25/19 Roshni Nascimento, RN Personal Advocate & Liaison (PAL) Family Medicine 08/18/20 Kiet Swain MD [address] [place] [address] 256764 Referring Physician Psychiatry 09/19/20 Winsome Pike APRN CAMERA TECHNICIAN [address] [place] [address] 6[address]894 Nurse Practitioner Psychiatry 09/19/20 Tori Hines, [facility] 2450 [place], [place] [address] Slot Key Person Slot Key Person - Clinical 09/19/20 Miranda Queen [facility] [address] [place] [address] Pharmacist Pharmacist 11/12/20 Marisel Armando MD 909 [place], [place] [address] Gastroenterology 02/05/21 Wesley Barrett MD 420 [facility] 96 [place] [address] Assigned Neuroscience Provider 05/10/21 [place] [address] [place] [address] Assigned PCP 05/15/22 Katiana Read MD [address] [place] [address] 200 [place], [place] [address] Assigned Endocrinology Provider 06/19/22 [place] [address] [place] [address] Nurse Practitioner Nurse Practitioner 10/18/22 Elham Stack, [facility] [address] [place], [place] [address] Pharmacist Pharmacist 10/19/22 Michelle Guzman DPM, Podiatry/Foot and Ankle Surgery [address] [facility] 300 [place], [place] [address] Assigned Musculoskeletal Provider 10/16/22 04/08/23 [place] [address] [place] [address] Assigned Pain Medication Provider 12/04/22 04/01/23 Aubrey Jones MD [address] [place] [address] Cardiovascular Disease 03/28/23 Blanquita Morales Turnaround Engineer Diabetes Education 04/25/23 Aubrey Jones MD [address] [place] [address] Assigned Heart and Vascular Provider 05/07/23 documented as of this encounter
--- OUTSIDE RECORDS SUMMARY | 2023-08-03 12:40 | XMS_ITS | Encounter Summary ---
Author Name Unknown Organization [place] Address [address] [place] [address]. [place] [address] Care Team Providers Care Coat Agent Name Role Phone Jovany Gonzalez MD Unavailable [phone] CrissyStaci jeong NP Unavailable [phone] Unavailable Roshni Nascimento RN Unavailable Unavailable Kiet Swain MD Unavailable [phone] Winsome Pike APRN UPHOLSTERY ESTIMATOR Unavailable [phone] Tori Hines [facility] Unavailable Miranda Queen [facility] Unavailable Unavailable Marisel Armando MD Unavailable Wesley Barrett MD Unavailable [phone] Dyan Fuentes MD Primary Care Provider [phone] Dyan Fuentes MD Unavailable [phone] Katiana Read MD Unavailable [phone] Mary Del Cid GAMBRELER HELPER Unavailable [phone] Elham Stack [facility] Unavailable [phone] Michelle Guzman DPM, Podiatry /Foot and Ankle Surgery Unavailable Dyan Fuentes MD Unavailable Reason for Visit * Reason Comments Pain Encounter Details Date Type Department Care Team (Late st Contact Info) Description 02/14/2023 2:00 PM CDT Office Visit [facility] [place] [address] [facility] [address] [place] [address] [place] [address] [address] [place] [address] Chronic pain syndrome; Muscle spasm Social History [...] Answer Date Recorded PHQ-2 Score 2 11/25/2022 [facility] of Occupat ional Health - Occupational [...] a skilled nursing (including now)? No 10/16/2021 Education Answer Date [...] now. Scheduling/Clinic telephone number for ALL locations: [phone] After Hours On-Call Service for Emergencies: [phone] Call with any questions about your care and for scheduling assistance. Calls are returned Tuesday through Tuesday between 8 AM and 4:00 PM. We usually get back to you within 2-3 business days depending on the issue/request. I am not in the clinic on Fridays. If we are prescribing your medications: For medication refills, call the clinic or send a Ning by [employer] message 7 days in advance. Please includethe name of the requested medication and your preferred pharmacy. Please allow 3-4 days to be processed. Per [place] State Law, all controlled substance prescriptions must [...] from the original note were not included. [facility] Date of Visit: 02/14/2023 Last [...] hematoma with Dr. Mayo on 08/20/2020 at [facility]. Mental Health - the patient's mental [...] - She continues visits with therapist at [facility], has found this helpful and feels that this is the best she has ever felt. She and her started to go to [facility] for family support. Pain description: Location: neck [...] prn Clonazepam 0.5mg BID prn Review of [place] Prescription Monitoring Program ([employer]): No concern for abuse or misuse of [...] several years ago -helpful, currently treating with [facility] 4. SURGERY: lumbar laminectomy L4-S1 with Dr. Barrett on 11/10/2021 C5-[address] Barrett on 05/18/[address] Mayo on 08/06/2020 and right hip irrigation, debridement, and evacuation of hematoma with Dr. Mayo on 08/20/2020 at [facility] cervical fusion 2003 L5-S1 hemilaminectomy 2004 [...] her children's lives. One son lives in [place], others are local. One son (disabled from [...] daily Dispense:150 tablet; Refill: 2 Mary Del Cdi, UPHOLSTERY ESTIMATOR-BC, PMGT-BC, AP-PMN [facility] documented in this encounter Plan of Treatment Upcoming Encounters Date Type Department Care Team (Late st Contact Info) Description 08/18/2023 3:00 PM DICTATING MACHINE TRANSCRIBER Office Visit [facility] [address] [facility] [address] [place] [address] Katiana Read MD [address] [place] [address] documented as of this encounter Visit Diagnoses Diagnosis Chronic pain syndrome Muscle spasm Spasm of muscle documented in this encounter Additional Health Concerns Assessment Noted Time PHQ-9 Depression Total Score: 10 023 8:26 AM CDT documented as of this encounter Care Teams Coat Agent Relationship Specialty [place] [address] [place] [address] PCP - General Family Medicine 05/18/22 Jovany Gonzalez MD [facility] [address] [facility] [address] [place], [place] [address] Orthopedics 02/15/17 Staci Woodward, GAMBRELER HELPER [place] [address] [place], [place] [address] Nurse Practitioner Nurse Practitioner Psych/Mental Health 05/10/17 Reanna Smith, RD [place] [address] [place], [place] [address] Leading Firefighter Dietitian, Registered 07/25/19 Roshni Nascimento, RN Personal Advocate & Liaison (PAL) Family Medicine 08/18/20 Kiet Swain MD [address] [place] [address] [id number] Referring Physician Psychiatry 09/19/20 Winsome Pike APRN UPHOLSTERY ESTIMATOR [address] [place] [address] 78[address] Nurse Practitioner Psychiatry 09/19/20 Tori Hines, [facility] [address] [place] [address] [id number] Miniature Set Designer Miniature Set Designer - Clinical 09/19/20 Miranda Queen [facility] [address] [place] [address] Pharmacist Pharmacist 11/12/20 Marisel Armando MD [address] [place], [place] [address] Gastroenterology 02/05/21 Wesley Barrett MD [address] [facility] [facility] [address] [place] [address] Assigned Neuroscience Provider 05/10/21 [place] [address] [place] [address] Assigned PCP 05/15/22 Katiana Read MD [address] [place] [address] 200 [place], [place] [address] Assigned Endocrinology Provider 06/19/22 [place] [address] [place] [address] Nurse Practitioner Nurse Practitioner 10/18/22 Elham Stack, [facility] [address] [place] [address] Pharmacist Pharmacist 10/19/22 Michelle Guzman DPM, Podiatry/Foot and Ankle Surgery [address] [facility] [address] [place], [place] [address] Assigned Musculoskeletal Provider 10/16/22 04/08/23 [place] [address] [place] [address] Assigned Pain Medication Provider 12/04/22 04/01/23 documented as of this encounter
--- OUTSIDE RECORDS SUMMARY | 2023-08-03 12:40 | XMS_ITS | Encounter Summary ---
Author Name Unknown Organization [place] Address [address] [place] [address]. [place] [address] Care Team Providers Care Criminalist Technician Name Role Phone Jovany Gonzalez MD Unavailable CrissyStaci jeong LABEL TACKER Unavailable [phone] Unavailable Roshni Nascimento RN Unavailable Unavailable Kiet Swain MD Unavailable [phone] Winsome Pike APRN MARKETING MANAGER Unavailable [phone] Tori Hines [facility] Unavailable Miranda Queen [facility] Unavailable Unavailable Marisel Armando MD Unavailable Wesley Barrett MD Unavailable [phone] Dyan Fuentes MD Primary Care Provider [phone] Dyan Fuentes MD Unavailable [phone] Katiana Read MD Unavailable [phone] Meme Singleton PhD Unavailable [phone] Mary Del Cid LABEL TACKER Unavailable + [phone] Elham Stack [facility] Unavailable [phone] Michelle Guzman DPM, Podiatry /Foot and Ankle Surgery Unavailable Dyan Fuentes MD Unavailable [phone] Reason for Referral * Consultation (Routine: Next available opening) - Referral NOT Required Specialty Diagnoses / Procedures Referred By Contac t Referred To Contact Surgery Diagnoses Encounter for insertion of venous access port Lipoma [place] and [place] [address] [place] [address] [facility] [address] [place] [address] Referral ID Status Reason Start Date Expiration Date V isits Requested Visits Authorized Referral NOT Required 12/30/2022 12/30/2023 1 1 Question Answer Preferred Location: [facility] [place] Scheduling Instructions: Please call to schedule your [...] Disease Diagnoses [place] [address] [place] [address] Referral ID Status Reason Start Date Expiration Date Visits Re quested Visits Authorized Closed 12/30/2022 12/30/2023 1 1 Question Answer Reason for Consult: General Cardiology Scheduling Instructions: [employer] will call you to coordinate your care as prescribed by your provider. If you don't hear from a contact center representative within 2 business days, please call [phone]. Comments Please be aware that coverage of these services is subject to the terms and limitations of your health insurance plan. Call member services at your health plan with any benefit or coverage questions. [employer] will call you to coordinate your care as prescribed by your provider. If you don't hear from a contact center representative within 2 business days, please call [phone]. Reason for Visit * Reason Comments ER F/U Encounter Details Date Type Department Care Team (Late st Contact Info) Description 12/30/2022 3:00 PM CDT Office Visit [facility] [address] [place] [phone] [place] [address] [place] [address] Hospital discharge follow-up (Primary Dx); [...] Answer Date Recorded PHQ-2 Score 2 11/25/2022 [facility] of Occupat ional Health - [...] alcohol Abnormal electrocardiogram - Adult Cardiology Eval Exhauster Referral; Future Troponin level elevated - during [...] continue medications without change Dyan Fuentes [facility] 62 year [facility], presenting for the following health issues: ER F/U 11/25/2022 3:02 PM Additional Questions Roomed by Sarah Daily [facility] Hospital Follow-up Visit: Hospital/Shelter/IP Rehab Facility: [facility] Date of Admission: 12-03-22 Date of Discharge: 12-11-22 Reason(s) for Admission: acute on chronic pancreatitis Was your hospitalization related to COVID-19? No Problems taking medications regularly: None Medication changes since discharge: None Problems adhering to non-medication therapy: None Summary of hospitalization: [facility] discharge summary reviewed Diagnostic Tests/Treatments reviewed. [...] st Contact Info) Description 08/18/2023 3:00 PM TEACHER OF FAMILY AND CONSUMER SCIENCE Office Visit [facility] [address] [place] [phone] Katiana Read MD [address] [place], [place] [address] Scheduled Referrals Name Type Priority Associated Diagnoses Orde r Schedule Adult Cardiology Eval Exhauster Referral Referral Routine: Next available opening Abnormal [...] documented as of this encounter Care Teams Criminalist Technician Relationship Specialty [place] [address] [place] [address] PCP - General Family Medicine 05/18/22 Jovany Gonzalez MD [facility] [address] [facility] 605 [place] [address] Orthopedics 02/15/17 Staci Woodward LABEL TACKER [place] [address] [place] [address] Nurse Practitioner Nurse Practitioner Psych/Mental Health 05/10/17 Reanna Smith, RD [place] [address] [place] [address] Web Development Director Dietitian, Registered 07/25/19 Roshni Nascimento, RN Personal Advocate & Liaison (PAL) Family Medicine 08/18/20 Kiet Swain MD [address] [place] [address] [id number] Referring Physician Psychiatry 09/19/20 Winsome Pike APRN MARKETING MANAGER [address] [place] [address] Nurse Practitioner Psychiatry 09/19/20 Tori Hines, [facility] [place] [address] Cleaner Window Cleaner Window - Clinical 09/19/20 Miranda Queen [facility] [address] [place] [address] Pharmacist Pharmacist 11/12/20 Marisel Armando MD [address] [place] [address] 660085 Gastroenterology 02/05/21 Wesley Barrett MD [address] [place] [address] 96 [place] [address] Assigned Neuroscience Provider 05/10/21 [place] [address] [place] [address] Assigned PCP 05/15/22 Katiana Read MD [address] [facility] 200 [place] [address] Assigned Endocrinology Provider 06/19/22 [place] [address] [place] [address] Assigned Behavioral Health Provider 07/03/22 12/31/22 [place] [address] [place] [address] Nurse Practitioner Nurse Practitioner 10/18/22 Elham Stack, [facility] [address] [place] [address] Pharmacist Pharmacist 10/19/22 Michelle Guzman, ALDOM, Podiatry/Foot and Ankle Surgery [address] [place] [address] [address] Assigned Musculoskeletal Provider 10/16/22 04/08/23 [place] [address] [place] [address] Assigned Pain Medication Provider 12/04/22 04/01/23 documented as of this encounter
--- OUTSIDE RECORDS SUMMARY | 2023-08-03 12:40 | XMS_ITS | Encounter Summary ---
Author Name Unknown Organization [place] Address [address] [place] [address]. [place] [address] Care Team Providers Care Patent Counsel Name Role Phone Jovany Gonzalez MD Unavailable CrissyStaci jeong NP Unavailable [phone] Unavailable Roshni Nascimento RN Unavailable Unavailable Kiet Swain MD Unavailable [phone] Winsome Pike APRN SENIOR WEB ENGINEER Unavailable [phone] [facility] Unavailable Miranda Queen [facility] Unavailable Unavailable Marisel Armando MD Unavailable Wesley Barrett MD Unavailable [phone] Dyan Fuentes MD Primary Care Provider [phone] Dyan Fuentes MD Unavailable [phone] Katiana Read MD Unavailable [phone] Mary Del Cid SLIDER ASSEMBLER Unavailable [phone] Elham Satck [facility] Unavailable [phone] Michelle Guzman DPM, Podiatry /Foot and Ankle Surgery Unavailable Dyan Fuentes MD Unavailable Reason for Visit * Reason Onset Date Comments Prior Auth - Medication 02/22/2023 buprenor phine HCl-naloxone HCl (SUBOXONE) 2- 0.5 MG per film - PA DENIED Encounter Details Date Type Department Care Team (Late st Contact Info) Description 02/22/[address] [facility] [place] [id number] [place] [address] [address] [place], [place] 68[address] [place] [address] [place] [id number] Prior Auth - Medication (buprenorphine HCl-naloxone HCl [...] often do you attend chur ch or baptism services? 1 to 4 times [...] Answer Date Recorded PHQ-2 Score 2 11/25/2022 [facility] of Occupat ional [...] 4mg at 0.5 QID Janine Raymundo RN Manager Stone [facility] * Telephone Encounter - Nena Mora MD - 03/15/2023 12:47 PM CDT Signed Prescriptions: Disp Refills buprenorphine HCl-naloxone HCl (SUBOXONE) *60 Film0 Sig: Place 0.5 Film under the tongue 4 times daily Authorizing Provider: NENA MORA Covering for provider who is out of the office. Refill appears appropriate and was sent to requested pharmacy. Nena Mora MD [facility] * [...] OV note, see note from MM below [facility] [place] - [address] [facility] [address] Janine Raymundo RN Manager [facility] * Telephone Encounter - Herlinda Benites - 03/15/2023 9:49 AM CDT [facility] Call Center Phone Message May a [...] call back to discuss Blanquita LEAHY, RN Manager Stone [facility] * [...] SUBOXONE 2-0.5 MG SL FILM Insurance Company: [employer] - Denial Date: 02/25/2023 Denial Rational: MUST [...] PA Initiation Medication: SUBOXONE 2-0.5 MG SL [employer] Insurance Company: [employer] - Pharmacy Filling the Rx: [facility] - [address] Filling Pharmacy Filling Pharmacy Fax: Start Date: 02/25/2023 * Telephone Encounter - Cyndee Leija CMA - 02/25/2023 9:04 AM CDT [facility] [id number] * Telephone Encounter - Raquel Trent CMA - 02/22/2023 4:15 PM CDT Prior Authorization Retail Medication Request Medication/Dose: buprenorphine HCl-naloxone HCl (SUBOXONE) 2-0.5 MG per film ICD code (if different than what is on RX): Chronic pain syndrome [G89.4] Previously Tried and Failed: Rationale: PREFERREDONE - AETNA PREFERREDONE Subscriber: Roosevelt Hernandez Relationship:Spouse Member:Kaila Hernandez LOB:None Plan year: 07/11/2022 - [place] Effective dates: 07/11/2012 - [employer] Group number: [id number] Pharmacy Information (if different than what is on RX) Name: [facility], [facility] [address] [facility] documented in this encounter Plan of Treatment Upcoming Encounters Date Type Department Care Team (Late st Contact Info) Description 08/18/2023 3:00 PM REPAIRER SCREEN CRUSHER Office Visit [facility] [address] [facility] [address] [place] [phone] Katiana Read MD [address] [facility] 200 [place], [place] [address] documented as of this encounter Visit Diagnoses Diagnosis Chronic pain syndrome documented in this encounter Additional Health Concerns Assessment Noted Time PHQ-9 Depression Total Score: 10 023 8:26 AM CDT documented as of this encounter Care Teams Patent Counsel Relationship Specialty [place] [address] [place] [address] PCP - General Family Medicine 05/18/22 Jovany Gonzalez MD [facility] [address] [facility] 605 [place] [address] Orthopedics 02/15/17 Staci Woodward NP [facility] [address] [place], [place] [address] Nurse Practitioner Nurse Practitioner Psych/Mental Health 05/10/17 Reanna Smith, [facility] [address] [place] [address] Motor Vehicle Assembly Supervisor Dietitian, Registered 07/25/19 Roshni Nascimento, RN Personal Advocate & Liaison (PAL) Family Medicine 08/18/20 Kiet Swain MD [address] [place], [place] [address] [place], [place] [address] Referring Physician Psychiatry 09/19/20 Winsome Pike APRN SENIOR WEB ENGINEER [address] [address] Nurse Practitioner Psychiatry 09/19/20 Tori Hines, [facility] [address] [place], [place] [address] Entry Level Chemist Entry Level Chemist - Clinical 09/19/20 Miranda Queen [facility] [address] [place] [address] Pharmacist Pharmacist 11/12/20 Marisel Armando MD [address] [place], [place] [address] Gastroenterology 02/05/21 Wesley Barrett MD [address] [facility] 96 [place] [address] Assigned Neuroscience Provider 05/10/21 [place] [address] [place] [address] Assigned PCP 05/15/22 Katiana Read MD [address] [facility] 200 [place] [address] Assigned Endocrinology Provider 06/19/22 [place] [address] [facility] [place] [address] Nurse Practitioner Nurse Practitioner 10/18/22 Elham Stack, [facility] [address] [place] [address] Pharmacist Pharmacist 10/19/22 Michelle Guzman DPM, Podiatry/Foot and Ankle Surgery [address] [place] [facility] [address] [place] [address] Assigned Musculoskeletal Provider 10/16/22 04/08/23 [place] [address] [place] [address] Assigned Pain Medication Provider 12/04/22 04/01/23 documented as of this encounter
--- OUTSIDE RECORDS SUMMARY | 2023-08-03 12:40 | XMS_ITS | Encounter Summary ---
Author Name Unknown Organization [place] Address [address] [place] [address]. [place] [address] Care Team Providers Care De Alcoholizer Name Role Phone Jovany Gonzalez MD Unavailable CrissyStaci jeong BLOCK PLACER Unavailable [phone] Unavailable [phone] Roshni Nascimento RN Unavailable Unavailable Kiet Swain MD Unavailable [phone] Winsome Pike APRN STRUCTURAL ENGINEERING DRAFTING OFFICER Unavailable [phone] Tori Hines [facility] Unavailable Miranda Queen [facility] Unavailable Unavailable Marisel Armando MD Unavailable Marisel Armando MD Unavailable Wesley Barrett MD Unavailable [phone] Dyan Fuentes MD Primary Care Provider [phone] Dyan Fuentes MD Unavailable [phone] Katiana Read MD Unavailable [phone] Meme Singleton PhD Unavailable [phone] Mary Del Cid BLOCK PLACER Unavailable [phone] Elham Stack [facility] Unavailable [phone] Michelle Guzman DPM, Podiatry /Foot and Ankle Surgery Unavailable Dyan Fuentes MD Unavailable [phone] Encounter Details Date Type Department Care Team [...] week 10/16/2021 How often do you attend [facility] or [facility] services? 1 to 4 [...] Answer Date Recorded PHQ-2 Score 2 11/25/2022 [facility] [place] of Occupat ional Health - Occupational Stress [...] st Contact Info) Description 08/18/2023 3:00 PM POLO COACH Office Visit [place] [address] [place] [address] Katiana Read MD [address] [place] [address] documented as of this encounter Visit Diagnoses Not on filedocumented in this encounter Additional Health Concerns Assessment Noted Time PHQ-9 Depression Total Score: 10 023 8:26 AM CDT documented as of this encounter Care Teams De Alcoholizer Relationship Specialty [place] [address] [place] [address] PCP - General Family Medicine 05/18/22 Jovany Gonzalez MD [facility] [address] [facility] 605 [place] [address] Orthopedics 02/15/17 Staci Woodward, BLOCK PLACER [place] [address] [place] [address] Nurse Practitioner Nurse Practitioner Psych/Mental Health 05/10/17 Reanna Smith, RD [place] [address] [place] [address] Tapper Helper Dietitian, Registered 07/25/19 Roshni Nascimento, RN Personal Advocate & Liaison (PAL) Family Medicine 08/18/20 Kiet Swain MD [address] [facility] [address] [place] [address] Referring Physician Psychiatry 09/19/20 Winsome Pike APRN STRUCTURAL ENGINEERING DRAFTING OFFICER [address] [place], [place] [address] Nurse Practitioner Psychiatry 09/19/20 Tori Hines [facility] [address] [place], [place] [address] Golf Starter And Ranger Golf Starter And Ranger - Clinical 09/19/20 Miranda Queen [facility] [address] [place] [address] Pharmacist Pharmacist 11/12/20 Marisel Armando MD [address] [place] [address] 2395[address] Gastroenterology 02/05/21 Marisel Armando MD [address] [place] [address] [id number] Assigned Gastroenterology Provider 03/08/21 12/24/22 Wesley Barrett MD [address] [place] [address] Assigned Neuroscience Provider 05/10/21 [place] [address] [place] [address] Assigned PCP 05/15/22 Katiana Read MD [address] [place] [address] [id number] Assigned Endocrinology Provider 06/19/22 Meme Singleton, PhD [address] [place] [address] Assigned Behavioral Health Provider 07/03/22 12/31/22 [place] [address] [place] [address] Nurse Practitioner Nurse Practitioner 10/18/22 Elham Stack, [facility] [address] [place] [address] Pharmacist Pharmacist 10/19/22 Michelle Guzman, DPM, Podiatry/Foot and Ankle Surgery [address] [place] [address] Assigned Musculoskeletal Provider 10/16/22 04/08/23 [place] [address] [place] [address] Assigned Pain Medication Provider 12/04/22 04/01/23 documented as of this encounter
--- OUTSIDE RECORDS SUMMARY | 2023-08-03 12:41 | XMS_ITS | Encounter Summary ---
Author Name Unknown Organization [place] Address [address] [place] [address]. [place] [address] Care Team Providers Care Material Mover Name Role Phone Jovany Gonzalez MD Unavailable [phone] CrissyStaci jeong ELECTRIC SERVICEMAN Unavailable [phone] Unavailable Roshni Nascimento RN Unavailable Unavailable Kiet Swain MD Unavailable [phone] Winsome Pike APRN WORKING SUPERVISOR Unavailable [phone] Tori Hines [facility] Unavailable Miranda Queen [facility] Unavailable Unavailable Marisel Armando MD Unavailable Marisel Armando MD Unavailable Wesley Barrett MD Unavailable [phone] Dyan Fuentes MD Primary Care Provider [phone] Dyan Fuentes MD Unavailable +[phone] Katiana Read MD Unavailable [phone] Meme Singleton PhD Unavailable [phone] Mary Del Cid ELECTRIC SERVICEMAN Unavailable +[phone] Elham Stack [facility] Unavailable [phone] Michelle Guzman DPM, Podiatry /Foot and Ankle Surgery Unavailable Dyan Fuentes MD Unavailable [phone] Reason for Referral * CV Testing (Routine) [...] ZZHC STATISTIC IV PUSH SINGLE INITIAL SUBSTANCE AR ECHO MYOCARD BX AR INJECTION, PERFLUTREN LIPID MICROSPHERES, PER ML AR TTE W/DOPPLER, COMPLETE AR IV PUSH SINGLE, INITIAL SUBSTANCE AR TTE W/DOPPLER, COMPLETE AR TTE W/DOPPLER, COMPLETE HC US GUIDE FOR PERICARDIOCENTESIS HC ECHO MYOCARD BX HC IV PUSH SINGLE, INITIAL SUBSTANCE HC STATISTIC IV PUSH SINGLE INITIAL SUBSTANCE HC ECHO COMPLETE W DOPPLER W CONTRAST HC ECHO COMPLETE W DOPPLER W/[place] [address] [place] [address] Cv Cardiac Svc [facility] [address] [facility] [address] [place] [address] Referral ID Status Reason Start Date Expiration Date Visits Re quested Visits Authorized [id number] Closed 10/25/2022 10/25/2023 1 1 Reason for [...] ZZHC STATISTIC IV PUSH SINGLE INITIAL SUBSTANCE AR ECHO MYOCARD BX AR INJECTION, PERFLUTREN LIPID MICROSPHERES, PER ML AR TTE W/DOPPLER, COMPLETE AR IV PUSH SINGLE, INITIAL SUBSTANCE AR TTE W/DOPPLER, COMPLETE AR TTE W/DOPPLER, COMPLETE HC US GUIDE FOR PERICARDIOCENTESIS HC ECHO MYOCARD BX HC IV PUSH SINGLE, INITIAL SUBSTANCE HC STATISTIC IV PUSH SINGLE INITIAL SUBSTANCE HC ECHO COMPLETE W DOPPLER W CONTRAST HC ECHO COMPLETE W DOPPLER W/[place] [address] [place] [address] Rh Cv Cardiac Svc [facility] [address] [place] [address] Referral ID Status Reason Start Date Expiration Date Visits Re quested Visits Authorized [id number] Closed 10/25/2022 10/25/2023 1 1 Encounter Details Date Type Department Care Team (Latest Contact Info) Description 12/17/2022 2:45 PM CDT - 12/17/2022 11:59 PM CDT Hospital Encounter [facility] [address] [facility] [address] [place] [address] [place] [address] [place] [address] Abnormal electrocardiogram; Chronic diastolic congestive [...] week 10/16/2021 How often do you attend [facility] or cheondo[facility] services? 1 to 4 times [...] Date Recorded PHQ-2 Score 2 11/25/2022 [facility] Occupat ional [facility] - Occupational Stress Questionnaire Answer Date [...] 2 times daily 0 Continuous Blood Gluc Desulfurizer Machine (DEXCOM G6 SOCIAL MEDIA STRATEGIST) DEVIIndications:Type 2 diabetes mellitus without complication, [...] MG/0.1ML nasal sprayIndications:At risk for substance overdose [place] 1 spray (4 mg) into one nostril alternating nostrils once as needed for opioid reversal 0.2 mL 0 11/11/2022 nitroGLYcerin (NITROSTAT) 0.4 MG sublingual tabletIndications:Ariadna st pain, unspecified type Place 1 tablet (0.4 mg) under the tongue every 5 minutes as needed for chest pain 25 tablet 0 08/20/2019 nystatin (MYCOSTATIN) [id number] UNIT/GM external ointment Apply topically 2 times [...] st Contact Info) Description 08/18/2023 3:00 PM SIGNAL MAINTENANCE TECHNICIAN Office Visit [facility] [address] [place] [address] Katiana Read MD [address] [place] [address] documented as of this encounter Procedures Procedure Name Priority Date/Time Associated Diagnosis Comments ECHO COMPLETE WITH CONTRAST Routine 12/17/2022 3:51 PM CDT Abnormal electrocardiogram documented in this encounter Results * ECHO COMPLETE WITH CONTRAST (12/17/2022 3:51 PM CDT) LVEF 60-65% CARDIOLOGY RESULTS Anatomical Region Laterality Modality Echocardiography 12/17/2022 3:18 PM CDT Narrative 12/17/2022 4:47 PM CDT [id number]^TORRES^DYAN^ULISES [facility] Echocardiography Laboratory [address] [place] [address] Name: KADEN GRIFFIN : 1960 Study Date: 12/17/2022 03:18 PM Age: 62 yrs Gender: Female Patient Location: [facility] Reason For Study: Abnormal electrocardiogram Ordering Physician: DYAN FUENTES Referring Physician: DYAN FUENTES Performed By: Nguyen Castro BSA: 2.2 m2 Height: 68 in Weight: 228 lb HR: 90 Procedure Complete Echo Adult. [place] ([facility] #[id number]) given intravenously. Interpretation Summary There is mild [...] Procedure Note Nilo Light MD - 12/17/2022 [id number]^TORRES^DYAN^[facility] Echocardiography Laboratory [address] [place] [address] Name: ROB HERNANDEZKADEN NOBLE : 1960 Study Date: 12/17/2022 03:18 PM Age: 62 yrs Gender: Female Patient Location: [facility] Reason For Study: Abnormal electrocardiogram Ordering Physician: DYAN FUENTES Referring Physician: DYAN FUENTES Performed By: Nguyen Castro BSA: 2.2 m2 Height: 68 in Weight: 228 lb HR: 90 Procedure Complete Echo Adult. [place] ([facility] #[id number]) given intravenously. Interpretation Summary There is mild [...] documented as of this encounter Care Teams Material Mover Relationship Specialty [place] [address] [place] [address] PCP - General Family Medicine 05/18/22 Jovany Gonzalez MD [facility] [address] [facility] [address] [place] [address] Orthopedics 02/15/17 Staci Woodward, ELECTRIC SERVICEMAN [place] [address] [place], [place] 6[address] Nurse Practitioner Nurse Practitioner Psych/Mental Health 05/10/17 Reanna Smith, RD [place] [address] [place], [place] [address] Contracting Engineer Dietitian, Registered 07/25/19 Roshni Nascimento, RN Personal Advocate & Liaison (PAL) Family Medicine 08/18/20 Kiet Swain MD [address] [place] [address] [id number] Referring Physician Psychiatry 09/19/20 Winsome Pike APRN WORKING SUPERVISOR [address] [address] Nurse Practitioner Psychiatry 09/19/20 Tori Hines, [facility] [address] [place] [address] Flooring Mechanic Flooring Mechanic - Clinical 09/19/20 Miranda Queen [facility] [address] [place] [address] Pharmacist Pharmacist 11/12/20 Marisel Armando MD [address] [place] [address] Gastroenterology 02/05/21 Marisel Armando MD [address] [place] [address] Assigned Gastroenterology Provider 03/08/21 12/24/22 Wesley Barrett MD [address] [place] [address] [address] [place] [address] Assigned Neuroscience Provider 05/10/21 [place] [address] [place] [address] Assigned PCP 05/15/22 Katiana Read MD [address] [place] [address] 200 [place] [address] Assigned Endocrinology Provider 06/19/22 Meme Singleton[place] PhD [address] [place] [address] Assigned Behavioral Health Provider 07/03/22 12/31/22 [place] [address] [place] [address] Nurse Practitioner Nurse Practitioner 10/18/22 Elham Stack, [facility] [address] [place] [address] Pharmacist Pharmacist 10/19/22 Michelle Guzman DPM, Podiatry/Foot and Ankle Surgery [address] [facility] [place] [address] Assigned Musculoskeletal Provider 10/16/22 04/08/23 [place] [address] [place] [address] Assigned Pain Medication Provider 12/04/22 04/01/23 documented as of this encounter
--- OUTSIDE RECORDS SUMMARY | 2023-08-03 12:41 | XMS_ITS | Encounter Summary ---
Author Name Unknown Organization [place] Address [address] [place] [address]. [place] [address] Care Team Providers Care Consulting Hr Professional Name Role Phone Jovany Gonzalez MD Unavailable CrissyStaci jeong BREAK UP WORKER Unavailable [phone] Unavailable [phone] Roshni Nascimento RN Unavailable Unavailable Kiet Swain MD Unavailable [phone] Winsome Pike APRN MOTION PICTURE EQUIPMENT MACHINIST Unavailable [phone] Tori Hines [facility] Unavailable Miranda Queen [facility] Unavailable Unavailable Marisel Armando MD Unavailable Marisel Armando MD Unavailable Wesley Barrett MD Unavailable [phone] Dyan Fuentes MD Primary Care Provider [phone] Dyan Fuentes MD Unavailable [phone] Katiana Read MD Unavailable [phone] Meme Singleton PhD Unavailable [phone] Mary Del Cid BREAK UP WORKER Unavailable [phone] Elham Stack [facility] Unavailable [phone] Michelle Guzman DPM, Podiatry /Foot and Ankle Surgery Unavailable Dyan Fuentes MD Unavailable [phone] Mary Del Cid NP Unavailable [phone] Aubrey Jones MD Unavailable [phone] Blanquita Morales Unavailable Unavailable Aubrey Jones MD Unavailable + [phone] Reason for Visit * Reason Onset Date Comments MyChart Communication 12/15/2022 Encounter Details Date Type Department Care Team (Latest Contact Info) Description 12/15/2022 [facility] [address] [address] Roshni Nascimento RN MyChart Communication [...] do you attend [facility] or mormon services? 1 to 4 times [...] 11/25/2022 [facility] - Occupational Stress Questionnaire Answer Date [...] st Contact Info) Description 08/18/2023 3:00 PM DUMP TRUCK DRIVER OFF HIGHWAY Office Visit [facility] [address] [place] [phone] Katiana Read MD [address] [facility] [address] [place], [place] 7[address] documented as of this encounter Visit Diagnoses Not on filedocumented in this encounter Additional Health Concerns Assessment Noted Time PHQ-9 Depression Total Score: 10 023 8:26 AM CDT documented as of this encounter Care Teams Consulting Hr Professional Relationship Specialty [place] [address] [place] [address] PCP - General Family Medicine 05/18/22 Jovany Gonzalez MD [facility] [address] [facility] [address] [place], [place] 321[address] Orthopedics 02/15/17 Staci Woodward BREAK UP WORKER [place] [address] [place] [address] Nurse Practitioner Nurse Practitioner Psych/Mental Health 05/10/[address] [facility] [address] [place] [address] Narrow Fabric Calenderer Dietitian, Registered 07/25/19 Roshni Nascimento, RN Personal Advocate & Liaison (PAL) Family Medicine 08/18/20 Kiet Swain MD [address] [place] [address] [address] [place], [place] [address] Referring Physician Psychiatry 09/19/20 Winsome Pike APRN MOTION PICTURE EQUIPMENT MACHINIST [address] [address] Nurse Practitioner Psychiatry 09/19/20 Tori Hines, [facility] [address] [place] [address] [id number] Manufacturing Scheduler Manufacturing Scheduler - Clinical 09/19/20 Miranda Queen [facility] [address] [place] [address] Pharmacist Pharmacist 11/12/20 Marisel Armando MD [address] [place] [address] 929575 Gastroenterology 02/05/21 Marisel Armando MD [address] [place] [address] 213125 Assigned Gastroenterology Provider 03/08/21 12/24/22 Wesley Barrett MD [address] [place] [address] 96 [place], [place] [address]54[address] Assigned Neuroscience Provider 05/10/21 [place] [address] [place], [place] [address] Assigned PCP 05/15/22 Katiana Read MD [address] [facility] [address] [place] [address] Assigned Endocrinology Provider 06/19/22 [place]e [place] PhD [address] [address] Assigned Behavioral Health Provider 07/03/22 12/31/22 [place] [address] [address] [address] Nurse Practitioner Nurse Practitioner 10/18/22 Elham Stack, [facility] [address] [place] [address] Pharmacist Pharmacist 10/19/22 Michelle Guzman DPM, Podiatry/Foot and Ankle Surgery [address] [place] [address] Assigned Musculoskeletal Provider 10/16/22 04/08/23 [place] [address] [place] [address] Assigned Pain Medication Provider 12/04/22 04/01/23 [place] [address] [address] [address] Nurse Practitioner Nurse Practitioner 01/17/23 01/17/23 Aubrey Jones MD [address] [place] [address] Cardiovascular Disease 03/28/23 Blanquita Morales Narrow Fabric Calenderer Diabetes Education 04/25/23 Aubrey Jones MD [address] [place] [address] Assigned Heart and Vascular Provider 05/07/23 documented as of this encounter
--- OUTSIDE RECORDS SUMMARY | 2023-08-03 12:41 | XMS_ITS | Encounter Summary ---
Author Name Unknown Organization [place] Address [address] [place] [address]. [place] [address] Care Team Providers Care Tobacco Acreage Measurer Name Role Phone Jovany Gonzalez MD Unavailable CrissyStaci jeong CIRCULATION CREW LEADER Unavailable [phone] Unavailable Roshni Nascimento RN Unavailable Unavailable Kiet Swain MD Unavailable [phone] Winsome Pike APRN EMBOSSED OR IMPRESSED LETTERING PAINTER Unavailable [phone] [facility] Unavailable Miranda Queen [facility] Unavailable Unavailable Marisel Armando MD Unavailable Marisel Armando MD Unavailable Wesley Barrett MD Unavailable [phone] Dyan Fuentes MD Primary Care Provider [phone] Dyan Fuentes MD Unavailable [phone] Katiana Read MD Unavailable [phone] Meme Singleton PhD Unavailable [phone] Mary Del Cid CIRCULATION CREW LEADER Unavailable [phone] Elham Stack [facility] Unavailable [phone] Michelle GuzmanM, Podiatry /Foot and Ankle Surgery Unavailable Dyan Fuentes MD Unavailable [phone] Reason for Visit * Reason Onset Date Comments Referral 12/15/2022 Encounter Details Date Type Department Care Team (Late st Contact Info) Description 12/15/2022 Telephone [facility] [address] [place] [address] [place] [address] [place] [address] Referral Social History Tobacco Use [...] Answer Date Recorded PHQ-2 Score 2 11/25/2022 [facility] Occupat ional Health - [...] reachable after several attempts, will route to [facility] Pharmacist/Provider as an FYI. [facility] scheduling number is [phone]. Thank you for the referral. Use vb for the carrier/Plan on the flowsheet MARIELY Mckinney nursing project coordinator documented in this encounter Plan of Treatment Upcoming Encounters Date Type Department Care Team (Late st Contact Info) Description 08/18/2023 3:00 PM POT RUNNER Office [facility] [address] [facility] [address] [place] [address] Katiana Read MD [address] [place] [address] documented as of this encounter Visit Diagnoses Not on filedocumented in this encounter Additional Health Concerns Assessment Noted Time PHQ-9 Depression Total Score: 10 023 8:26 AM CDT documented as of this encounter Care Teams Tobacco Acreage Measurer Relationship Specialty [place] [address] [place] [address] PCP - General Family Medicine 05/18/22 Jovany Gonzalez MD [facility] [address] [facility] [address] [place] [address] Orthopedics 02/15/17 Staci Woodward, CIRCULATION CREW LEADER [place] [address] [place] [address] Nurse Practitioner Nurse Practitioner Psych/Mental Health 05/10/17 Reanna Smith, RD [place] [address] [place] [address] Lye Boiler Dietitian, Registered 07/25/19 Roshni Nascimento, RN Personal Advocate & Liaison (PAL) Family Medicine 08/18/20 Kiet Swain MD [address] [place] [address] [address] [place], [place] [address] Referring Physician Psychiatry 09/19/20 Winsome Pike APRN EMBOSSED OR IMPRESSED LETTERING PAINTER [facility] [address] [address] Nurse Practitioner Psychiatry 09/19/20 Tori Hines, [facility] [place], [place] 14[address] Nurse Informatics Educator Nurse Informatics Educator - Clinical 09/19/20 Miranda Queen [facility] [address] [place] [address] Pharmacist Pharmacist 11/12/20 Marisel Armando MD [address] [place] [address] 259735 Gastroenterology 02/05/21 Marisel Armando MD [address] [place] [address] [id number] Assigned Gastroenterology Provider 03/08/21 12/24/22 Wesley Barrett MD [address] [facility] 96 [place] [address] Assigned Neuroscience Provider 05/10/21 [place] [address] [place] [address] Assigned PCP 05/15/22 Katiana Read MD [address] [place] [address] 200 [place] [address] Assigned Endocrinology Provider 06/19/22 Meme Singleton, PhD [address] [place] [address] Assigned Behavioral Health Provider 07/03/22 12/31/22 [place] [address] [place] [address] Nurse Practitioner Nurse Practitioner 10/18/22 Elham Stack, [facility] [address] [place] [address] Pharmacist Pharmacist 10/19/22 Michelle Guzman, DPM, Podiatry/Foot and Ankle Surgery [address] [place] [address] Assigned Musculoskeletal Provider 10/16/22 04/08/23 [place] [address] [place] [address] Assigned Pain Medication Provider 12/04/22 04/01/23 documented as of this encounter
--- OUTSIDE RECORDS SUMMARY | 2023-08-03 12:41 | XMS_ITS | Encounter Summary ---
Author Name Unknown Organization [place] Address [address] [place] [address]. [place] [address] Care Team Providers Care Motor Equipment Lieutenant Name Role Phone Jovany Gonzalez MD Unavailable CrissyStaci jeong HAND RIGGER Unavailable [phone] Unavailable Roshni Nascimento RN Unavailable Unavailable Kiet Swain MD Unavailable [phone] Winsome Pike APRN PLASTER MOLDER Unavailable [phone] Tori Hines [facility] Unavailable Miranda Queen [facility] Unavailable Unavailable Marisel Armando MD Unavailable Marisel Armando MD Unavailable Wesley Barrett MD Unavailable [phone] Dyan Fuentes MD Primary Care Provider [phone] Dyan Fuentes MD Unavailable [phone] Katiana Read MD Unavailable [phone] Meme Singleton PhD Unavailable [phone] Mary Del Cid HAND RIGGER Unavailable +[phone] Elham Stack [facility] Unavailable [phone] Michelle GuzmanM, Podiatry /Foot and Ankle Surgery Unavailable Dyan Fuentes MD Unavailable [phone] Reason for Visit * Reason Onset Date Comments Outreach 12/13/2022 Encounter Details Date Type Department Care Team (Late st Contact Info) Description 12/13/2022 Telephone [facility] [address] [place] [address] [place] [address] [place] [address] Outreach Social History Tobacco Use [...] often do you attend chur ch or jain services? 1 to 4 times per year [...] Date Recorded PHQ-2 Score 2 11/25/2022 [facility] - Occupational [...] st Contact Info) Description 08/18/2023 3:00 PM FINANCIAL SALES ASSISTANT Office Visit [facility] [address] [place] [address] Katiana Read MD [address] [place] [address] documented as of this encounter Visit Diagnoses Not on filedocumented in this encounter Additional Health Concerns Assessment Noted Time PHQ-9 Depression Total Score: 10 023 8:26 AM CDT documented as of this encounter Care Teams Motor Equipment Lieutenant Relationship Specialty Start Date End Date Hedtke, [place] [address] [place] [address] PCP - General Family Medicine 05/18/22 Jovany Gonzalez MD [facility] [address] [facility] [address] [place], [place] 5[address] Orthopedics 02/15/17 Staci Woodward, HAND RIGGER [place] [address] [place], [place] [phone] Nurse Practitioner Nurse Practitioner Psych/Mental Health 05/10/17 Reanna Smith, RD [facility] [address] [place], [place] [address] Psychiatric Attendant Dietitian, Registered 07/25/19 Roshni Nascimento, RN Personal Advocate & Liaison (PAL) Family Medicine 08/18/20 Kiet Swain MD [address] [place] [address] 725634 Referring Physician Psychiatry 09/19/20 Winsome Pike APRN PLASTER MOLDER [address] [place] [address] [id number] Nurse Practitioner Psychiatry 09/19/20 Tori Hines [facility] [address] [place] [address] Narcotics And/Or Vice Detective Narcotics And/Or Vice Detective - Clinical 09/19/20 Miranda Queen [facility] [address] [place] [address] Pharmacist Pharmacist 11/12/20 Marisel Armando MD [address] [place] [address] Gastroenterology 02/05/21 Marisel Armando MD [address] [place] [address] Assigned Gastroenterology Provider 03/08/21 12/24/22 Wesley Barrett MD [address] [facility] 96 [place], [place] 86[address] Assigned Neuroscience Provider 05/10/21 [place] [address] [place] [address] Assigned PCP 05/15/22 Katiana Read MD [address] [facility] 200 [place], [place] [address] Assigned Endocrinology Provider 06/19/22 Meme [place] [address] [place] [address] Assigned Behavioral Health Provider 07/03/22 12/31/22 Mary Del Cid, [place] [address] [place] [address] Nurse Practitioner Nurse Practitioner 10/18/22 Elham Stack, [facility] [address] [place] [address] Pharmacist Pharmacist 10/19/22 Michelle Guzman DPM, Podiatry/Foot and Ankle Surgery [address] [place] [address] Assigned Musculoskeletal Provider 10/16/22 04/08/23 [place] [address] [place] [address] Assigned Pain Medication Provider 12/04/22 04/01/23 documented as of this encounter
--- OUTSIDE RECORDS SUMMARY | 2023-08-03 12:42 | XMS_ITS | Encounter Summary ---
Author Name Unknown Organization [place] Address [address] [place] [address]. [place] [address] Care Team Providers Care Manufacturing Coordinator Name Role Phone Jovany Gonzalez MD Unavailable [phone] CrissyStaci jeong DISTILLERY MILLER HELPER Unavailable [phone] Unavailable Roshni Nascimento RN Unavailable Unavailable Kiet Swain MD Unavailable Winsome Pike APRN CHANNELING MACHINE OPERATOR Unavailable [phone] Tori Hines [facility] Unavailable Miranda Queen [facility] Unavailable Unavailable Marisel Armando MD Unavailable Marisel Armando MD Unavailable Wesley Barrett MD Unavailable [phone] Dyan Fuentes MD Primary Care Provider [phone] Dyan Fuentes MD Unavailable [phone] Katiana Read MD Unavailable [phone] Meme Singleton PhD Unavailable [phone] Mary Del Cid DISTILLERY MILLER HELPER Unavailable + [phone] Elham Stack [facility] Unavailable [phone] Mary Del Cid NP Unavailable [phone] Michelle GuzmanM, Podiatry /Foot and Ankle Surgery Unavailable Dyan Fuentes MD Unavailable [phone] Encounter Details Date Type Department Care Team (Late st Contact Info) Description 12/03/2022 [facility] Medical Advice [address] [address] Torri Benites V, RN Social [...] week 10/16/2021 How often do you attend [facility] or jewish services? 1 to 4 [...] Answer Date Recorded PHQ-2 Score 2 11/25/2022 [facility] - Occupational Stress Questionnaire Answer Date Recorded [...] for pt to c/b or to read National Bananahart message Letter sent * Telephone Encounter - [...] her levothyroxine on schedule and therefore her bag mender has not adjusted her dose despite elevated TSH and low T4 with numbers slowly improving documented in this encounter Plan of Treatment Upcoming Encounters Date Type Department Care Team (Late st Contact Info) Description 08/18/2023 3:00 PM HYDROPONICS WORKER Office Visit [place] [address] [place] [phone] Katiana Read MD [address] [place], [place] [address] documented as of this encounter Visit Diagnoses Not on filedocumented in this encounter Additional Health Concerns Infection Onset Date Last Indicated Resolved Time Rule Out C-difficile 12/05/2022 12/05/2022 023 9:44 AM CDT Assessment Noted Time PHQ-9 Depression Total Score: 10 023 8:26 AM CDT documented as of this encounter Care Teams Manufacturing Coordinator Relationship Specialty [place] [address] [place] [address] PCP - General Family Medicine 05/18/22 Jovany Gonzalez MD [facility] [address] [facility] [address] [place], [place] [address] Orthopedics 02/15/17 Staci Woodward NP [place] [address] [place], [place] [address] Nurse Practitioner Nurse Practitioner Psych/Mental Health 05/10/17 Reanna Smith, [facility] [place] [address] [place], [place] [address] Merchandise Carrier Dietitian, Registered 07/25/19 Roshni Nascimento, RN Personal Advocate & Liaison (PAL) Family Medicine 08/18/20 Kiet Swain MD [address] [place] [address] [address] [place], [place] [address] Referring Physician Psychiatry 09/19/20 Winsome Pike APRN CHANNELING MACHINE OPERATOR [facility] [address] [phone] Nurse Practitioner Psychiatry 09/19/20 Tori Hines, [facility] [address] [place] [phone] Green Belt Green Belt - Clinical 09/19/20 [facility] [address] [place] [address] Pharmacist Pharmacist 11/12/20 Marisel Armando MD [address] [place] [address] [phone] Gastroenterology 02/05/21 Marisel Armando MD [address] [place] [address] [phone] Assigned Gastroenterology Provider 03/08/21 12/24/22 Wesley Barrett MD [address] [place] [address] [address] [place], [place] [address] Assigned Neuroscience Provider 05/10/21 [place] [address] [place], [place] [id number] Assigned PCP 05/15/22 Katiana Read MD [address] [facility] [address] [place] [address] Assigned Endocrinology Provider 06/19/22 [place] [address] [address] [address] Assigned Behavioral Health Provider 07/03/22 12/31/22 Mary Del Cid, RAFAEL [address] [address] Nurse Practitioner Nurse Practitioner 10/18/22 Elham Stack, [facility] [address] [place] [address] Pharmacist Pharmacist 10/19/22 Mary Del Cid, DISTILLERY MILLER HELPER [address] [address] [address] Assigned Pain Medication Provider 10/30/22 12/03/22 Michelle Guzman DPAlisha, Podiatry/Foot and Ankle Surgery [address] [place] [address] Assigned Musculoskeletal Provider 10/16/22 04/08/23 [place] [address] [place] [address] Assigned Pain Medication Provider 12/04/22 04/01/23 documented as of this encounter
--- OUTSIDE RECORDS SUMMARY | 2023-08-03 12:42 | XMS_ITS | Encounter Summary ---
Author Name Unknown Organization [facility] Address [address] [place] [address]. [place] [address] Care Team Providers Care Compensation And Benefits Advisor Name Role Phone Jovany Gonzalez MD Unavailable CrissyStaci jeong [employer]ASS Unavailable [phone] Unavailable [phone] Roshni Nascimento RN Unavailable Unavailable Kiet Swain MD Unavailable [phone] Winsome Pike APRN HIGHER EDUCATION ADMINISTRATOR Unavailable [phone] Tori Hines [facility] Unavailable Miranda Queen [facility] Unavailable Unavailable Marisel Armando MD Unavailable Marisel Armando MD Unavailable Wesley Barrett MD Unavailable [phone] Dyan Fuentes MD Primary Care Provider [phone] Dyan Fuentes MD Unavailable [phone] Katiana Read MD Unavailable [phone] Meme Singleton PhD Unavailable [phone] Mary Del Cid [employer] Unavailable + [phone] Elham Stack [facility] Unavailable [phone] Mary Del Cid NP Unavailable [phone] Michelle Guzman DPM, Podiatry /Foot and Ankle Surgery Unavailable Dyan Fuentes MD Unavailable [phone] Mary Del Cid [employer] Unavailable [phone] Aubrey Jones MD Unavailable [phone] Blanquita Morales Unavailable Unavailable Aubrey Jones MD Unavailable + [phone] Encounter Details Date Type Department Care Team (Late st Contact Info) Description 11/29/2022 [facility] Medical Advice [address] [address] Roshni Nascimento RN Social History [...] week 10/16/2021 [facility] often [facility] you [facility] or nondenominational services? 1 to 4 times [...] Answer Date Recorded PHQ-2 Score 2 11/25/2022 [facility] - Occupational Stress Questionnaire Answer [...] st Contact Info) Description 08/18/2023 3:00 PM AIR DRIER Office Visit [facility] [address] [place] [address] Katiana Read MD [address] [facility] [address] [place], [place] [address] documented as of this encounter Visit Diagnoses Not on filedocumented in this encounter Additional Health Concerns Infection Onset Date Last Indicated Resolved Time Rule Out C-difficile 12/05/2022 12/05/2022 023 9:44 AM CDT Assessment Noted Time PHQ-9 Depression Total Score: 10 023 8:26 AM CDT documented as of this encounter Care Teams Compensation And Benefits Advisor Relationship Specialty [place] [address] [place] [address] PCP - General Family Medicine 05/18/22 Jovany Gonzalez MD [facility] [address] [facility] 605 [place], [place] [address] Orthopedics 02/15/17 Staci Woodward NP [facility] [address] [place], [place] [address] Nurse Practitioner Nurse Practitioner Psych/Mental Health 05/10/17 Reanna Smith, RD [facility] [address] [place] [address] Flavoring Oil Filterer Dietitian, Registered 07/25/19 Roshni Nascimento, RN Personal Advocate & Liaison (PAL) Family Medicine 08/18/20 Kiet Swain MD [address] [place], [place] [id number] [place] [address] Referring Physician Psychiatry 09/19/20 Winsome Pike APRN HIGHER EDUCATION ADMINISTRATOR [address] [place] [address]574 Nurse Practitioner Psychiatry 09/19/20 Tori Hines [facility] [address] [place] [address]484 Seed Trucker Seed Trucker - Clinical 09/19/20 Miranad Queen [facility] [address] [place] [address] Pharmacist Pharmacist 11/12/20 Marisel Armando MD [address] [place] [address] Gastroenterology 02/05/21 Marisel Armando MD [address] [place] [address] [phone] Assigned Gastroenterology Provider 03/08/21 12/24/22 Wesley Barrett MD [address] [place] [address] 96 [place], [place] [address] Assigned Neuroscience Provider 05/10/21 [place] [address] [place] [address] Assigned PCP 05/15/22 Katiana Read MD [address] [address] Assigned Endocrinology Provider 06/19/22 [place] [address] [place] [address] Assigned Behavioral Health Provider 07/03/22 12/31/22 Mary Del Cid, RAFAEL [address] [place] [address] Nurse Practitioner Nurse Practitioner 10/18/22 Elham Stack, [facility] [address] [place] [address] Pharmacist Pharmacist 10/19/22 Mary Del Cid, RAFAEL [address] [place] [address] Assigned Pain Medication Provider 10/30/22 12/03/22 Michelle Guzman, DPM, Podiatry/Foot and Ankle Surgery [address] [place] [address] Assigned Musculoskeletal Provider 10/16/22 04/08/23 [place] [address] [place] [address] Assigned Pain Medication Provider 12/04/22 04/01/23 [place] [address] [address] [address] Nurse Practitioner Nurse Practitioner 01/17/23 01/17/23 Aubrey Jones MD [address] [place] [address] Cardiovascular Disease 03/28/23 Blanquita Morales Flavoring Oil Filterer Diabetes Education 04/25/23 Aubrey Jones MD [address] [place] [address] Assigned Heart and Vascular Provider 05/07/23 documented as of this encounter
--- OUTSIDE RECORDS SUMMARY | 2023-08-03 12:42 | XMS_ITS | Encounter Summary ---
Author Name Unknown Organization [place] Address [address] [place] [address]. [place] [address] Care Team Providers Care Tube Former Operator Name Role Phone Jovany Gonzalez MD Unavailable CrissyStaci jeong TECHNICAL SUPPORT PROFESSIONAL Unavailable [phone] Unavailable Roshni Nascimento RN Unavailable Unavailable Kiet Swain MD Unavailable [phone] Winsome Pike APRN WELDING MACHINE OPERATOR Unavailable [phone] Tori Hines [facility] Unavailable Miranda Queen [facility] Unavailable Unavailable Marisel Armando MD Unavailable Marisel Armando MD Unavailable Wesley Barrett MD Unavailable [phone] Dyan Fuentes MD Primary Care Provider [phone] Dyan Fuentes MD Unavailable [phone] Katiana Read MD Unavailable [phone] Meme Singleton PhD Unavailable [phone] Mary Del Cid TECHNICAL SUPPORT PROFESSIONAL Unavailable + [phone] Elham Stack [facility] Unavailable [phone] Mary Del Cid NP Unavailable [phone] Michelle Guzman DPM, Podiatry /Foot and Ankle Surgery Unavailable Dyan Fuentes MD Unavailable [phone] Reason for Referral * Med Therapy Management (Routine) - Pending Review Specialty Diagnoses / Procedures Referred By Jose R kelly Referred To Contact Pharmacist Diagnoses Hypothyroidism, unspecified type Mike Parson MD [address] [place] [place] [address] Referral ID Status Reason Start Date Expiration Date V isits Requested Visits Authorized [id number] Pending Review 12/07/2022 12/07/2023 1 1 Scheduling Instructions MTM referral reason Total Score: 2 Patient had a hospital or ED visit in last 6 months and has more than 10 RELATIONSHIP MANAGER or Discharge medications Patient has 5 RELATIONSHIP MANAGER or Discharge Medications AND one of the [...] [facility] Emergency [facility] [address] [place] [address] Referral ID Status Reason Start Date Expiration Date Visits Re quested Visits Authorized [id number] 1 1 Encounter Details Date Type Department Care Team (Late st Contact Info) Description 12/03/2022 9:15 AM CDT - 2022 5:13 PM CDT Hospital Encounter M [facility] Orth[facility] Spine [address] [place] [id number] Dyan Kaur, PA-C [facility] [address] [place] [address] Parag Sutton MD [facility] [address] [address] Oswaldo Awad, DO [address] [place], [place] [id number] Acute on chronic pancreatitis (H) (Primary Dx); [...] often do you attend chur ch or faith services? 1 to 4 times per year [...] Answer Date Recorded PHQ-2 Score 2 [facility]2022 [facility] - Occupational Stress Questionnaire Answer Date [...] and last had alcohol about 4-5 days captain fire prevention bureau which correlates with the onset of sx. [...] 21-> 18 and without CP 2/2 T2 [place], she has RF so might be reasonable to arrange for OP stress testing. ?? Chronic opioid dependence On home buprenorphine-naloxone ?? T2dm Glucose was 275 on presentation and hgb A1c 6.5 % and so started on glargine 5 unit(s) every day and ISS with adequate control. Hyperglycemia not good for her hypertriglyceridemia -captain fire prevention bureau regimen was glargine 10 unit(s) with ISS, [...] her levothyroxine on schedule and therefore her credit analyst has not adjusted her dose despite elevated [...] tablet by mouth daily Continuous Blood Gluc Podiatry Assistant (DEXCOM G6 MONUMENT MASON) ANITA USE DAILY Qty: 1 each, Refills: [...] (H) naloxone (NARCAN) 4 MG/0.1ML nasal spray Yreka 1 spray (4 mg) into one nostril alternating nostrilsonce as needed for opioid reversal Qty: 0.2 mL, Refills: 0 Associated Diagnoses: At risk for substance overdose nitroGLYcerin (NITROSTAT) 0.[address] 1 tablet (0.4 mg) under the tongue every 5minutes as needed for chest pain Qty: 25 tablet, Refills: 0 Associated Diagnoses: Chest pain, unspecified type nystatin (MYCOSTATIN) 721891 UNIT/GM external ointment Apply topically 2 times [...] 3D MIP reconstructions were performed by the technologist development COMPARISON: Chest CT on 09/06/2022. FINDINGS: Chest/mediastinum: [...] ULTRASOUND ABDOMEN COMPLETE WITH DOPPLER COMPLETE LOCATION: [facility] DATE/TIME: 2022, 8:56 AM CDT INDICATION: Question [...] Results Review. Most Recent Lab Results In [facility] (For Non-[facility] Providers): Most Recent 3 CBC's: Recent Labs [...] DOSE OF 150MGS 90 tablet 0 03/08/2022 ferrous sulfate (FEROSUL) 325 (65 Fe) MG tabletIndications:Gen eralized muscle weakness,Hypokalemia, Tobacco dependence Take 325 mg by mouth daily (with breakfast) 100 tablet 1 05/06/2021 hydrOXYzine (ATARAX) 25 MG tablet Take 25 mg by mouth 4 times daily 0 Potassium Gluconate 595 MG CAPSIndications:Gener alized muscle weakness Take 1 capsule by mouth daily 100 capsule 1 05/06/2021 Vitamin D3 (VITAMIN D, CHOLECALCIFEROL,) 25 mcg (1000 units) tablet Take 1 tablet by mouth daily 0 Continuous Blood Gluc Podiatry Assistant (DEXCOM G6 MONUMENT MASON) DEVIIndications:Type 2 diabetes mellitus without complication, with long-term current use of insulin (H) USE DAILY 1 each 0 06/15/2022 EPINEPHrine (ANY BX GENERIC EQUIV) 0.3 MG/0.3ML injection 2-packIndications:Bee sting allergy Inject 0.3 mLs (0.3 mg) into the muscle as needed for anaphylaxis (EPI-PEN) 2 each 1 06/14/2022 naloxone (NARCAN) 4 MG/0.1ML nasal sprayIndications:At risk for substance overdose Yreka 1 spray (4 mg) into one nostril alternating nostrils once as needed for opioid reversal 0.2 mL 0 11/11/2022 nitroGLYcerin (NITROSTAT) 0.4 MG sublingual tabletIndications:Ariadna st pain, unspecified type Place 1 tablet (0.4 mg) under the tongue every 5 minutes as needed for chest pain 25 tablet 0 08/20/2019 nystatin (MYCOSTATIN) [id number] UNIT/GM external ointment Apply topically 2 times daily as needed 0 ondansetron (ZOFRAN) 8 MG tabletIndications:Akhil sea Take 1 tablet (8 mg) by mouth every 8 hours as needed for nausea 90 tablet 1 11/25/2022 simethicone (MYLICON) 80 MG chewable tabletIndications:Becerra colitis (H) Take 1 tablet (80 mg) by mouth every 6 hours as needed for flatulence or cramping 0 10/28/2022 albuterol (PROAIR HFA/PROVENTIL HFA/VENTOLIN HFA) 108 (90 [...] PER DAY) 15 mL 1 05/07/2022 07/12/2023 levothyroxine (SYNTHROID/LEVOTHROID ) 175 MCG tabletIndications:Pos tprocedural [...] glucose. 1 each 3 06/15/2022 07/21/2023 insulin glargine (BASAGLAR KWIKPEN) 100 UNIT/ML penIndications:Type 2 diabetes mellitus without complication, with long-term current use of insulin (H) Inject 10 Units Subcutaneous every morning 15 mL 1 05/07/2022 04/25/2023 documented as of this encounter Progress Notes * Shirlene Islas MD - 12/10/2022 3:26 PM CDT [facility] Hospitalist Progress Note Shirlene Islas MD 12/10/2022 [...] and last had alcohol about 4-5 days captain fire prevention bureau which correlates with the onset of sx. [...] 21-> 18 and without CP 2/2 T2 [place], she has RF so might be reasonable [...] her levothyroxine on schedule and therefore her credit analyst has not adjusted her dose despite elevated [...] MD 12/10/2022, 3:27 PM Securely message with [employer] (more info) Text page via [facility] Paging/Directory I spent 60 minutes reviewing epic [...] 3D MIP reconstructions were performed by the technologist development COMPARISON: Chest CT on 09/06/2022. FINDINGS: Chest/mediastinum: [...] for stopping by. Lauren Cruz MA Associate Editor Greeting Card [phone] - pager [facility] remains available 31/01 for emergent requests/referrals, either by having the on-call health education director paged or by entering an RAFAELA/STAT consult in [facility] (this will also page the on-call health education director). RoutineEpic consults receive an initial response within [...] IBW of 63.6 kg) Estimated Energy Needs: 0981-5850 kcals (MSJ w/ AF 1-1.2) Justification: maintenance Estimated Protein Needs: 75-89 grams protein (1-1.2 g pro/Kg) Justification: maintenance, preservation of LBM Estimated Fluid Needs: 1 mL/kcal or per provider pending fluid status NUTRITION DIAGNOSIS: Inadequate oral intake related to poor appetite d/t nausea, abdominal pain as evidenced by patient report of not eating for 1 week RELATIONSHIP MANAGER and </= 50% intakes for >/= 5 [...] Practice Guidelines Nieves Gutierrez Clinical Dietitian - [facility] Associated attestation - Janine Petit RD - 12/10/2022 2:50 PM CDT I have reviewed the RD exam-eligible employee's note below and agree with the assessment and interventions. Janine Petit RD, LD, [facility] Pager - 3rd floor/ICU: [phone] Pager - All other floors: [phone] Pager - Weekend/holiday: [phone] Office: [phone] * Keegan Hatch RN - 12/10/2022 6:32 AM CDT Pt is alert and oriented, lung sounds clear, up independently in the room.Low fat diet, VSS, ativanand Oxy given for pain.Denies having a BM.BS monitoring. 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 [...] 21-> 19 and without CP 2/2 T2 [place], she has RF so might be reasonable [...] her levothyroxine on schedule and therefore her credit analyst has not adjusted her dose despite elevated [...] MD 12/09/2022, 4:07 PM Securely message with [employer] info) Text page via [employer] Paging/Directory I spent 60 minutes reviewing epic [...] 3D MIP reconstructions were performed by the technologist development COMPARISON: Chest CT on 09/06/2022. FINDINGS: Chest/mediastinum: [...] Islas MD - 12/08/2022 4:13 PM CDT [facility] Hospitalist Progress Note Shirlene Islas MD 12/08/2022 [...] and last had alcohol about 4-5 days captain fire prevention bureau which correlates with the onset of sx. [...] 21-> 19 and without CP 2/2 T2 [place], she has RF so might be reasonable [...] her levothyroxine on schedule and therefore her credit analyst has not adjusted her dose despite elevated [...] MD 12/08/2022, 4:13 PM Securely message with [employer] (more info) Text page via [employer] [facility] Paging/Directory I spent 60 minutes reviewing epic [...] 3D MIP reconstructions were performed by the technologist development COMPARISON: Chest CT on 09/06/2022. FINDINGS: Chest/mediastinum: [...] Parson MD - 12/07/2022 10:52 AM CDT [facility] Medicine Progress Note - Hospitalist Service Date [...] her levothyroxine on schedule and therefore her credit analyst has not adjusted her dose despite elevated [...] regimen Mike Parson MD, MD Hospitalist Service [facility] Securely message with [employer] (more info) Text page via [facility] Paging/Directory Interval History I assume [...] Harrell MD - 12/06/2022 8:19 AM CDT [facility] Hospitalist Progress Note Dimitri Harrell MD 12/06/2022 [...] her levothyroxine on schedule and therefore her credit analyst has not adjusted her dose despite elevated [...] 3D MIP reconstructions were performed by the technologist development COMPARISON: Chest CT on 09/06/2022. FINDINGS: Chest/mediastinum: [...] Harrell MD - 12/05/2022 8:24 AM CDT [facility] Hospitalist Progress Note Dimitri Harrell MD 12/05/22 [...] her levothyroxine on schedule and therefore her credit analyst has not adjusted her dose despite elevated [...] 3D MIP reconstructions were performed by the technologist development COMPARISON: Chest CT on 09/06/2022. FINDINGS: Chest/mediastinum: [...] Harrell MD - 12/04/2022 12:30 PM CDT [facility] Hospitalist Progress Note Dimitri Harrell MD 12/04/22 [...] her levothyroxine on schedule and therefore her credit analyst has not adjusted her dose despite elevated [...] 3D MIP reconstructions were performed by the technologist development COMPARISON: Chest CT on 09/06/2022. FINDINGS: Chest/mediastinum: [...] Gonzalez RN, BSN, CM Inpatient Care Coordination [facility] [phone] documented in this encounter H&P Notes * Raquel Rahman PA-C - 12/03/2022 2:47 PM CDT [facility] History and Physical - Hospitalist Service Date [...] her levothyroxine on schedule and therefore her credit analyst has not adjusted her dose despite elevated [...] Attending Physician, Dr. Awad, Patient and ED Frame Repairer(s). Raquel Rahman PA-C Hospitalist Service [facility] Securely message with [employer] (more info) Text page via [facility] Paging/Directory Chief Complaint Abdominal pain, [...] ANKLE ARTHROSCOPY; Surgeon: Jovany Gonzalez MD; Location: [facility] Main OR;Service: ??? BACK SURGERY Lumbar and [...] FIBULAR FRACTURE; Surgeon: Jovany Gonzalez MD; Location: [facility]; Service: ??? rectocele and cystocel repairs ??? REMOVE HARDWARE LOWER EXTREMITY Right 12/13/2017 Procedure: REMOVAL OF SYNDESMOSIS SCREWS, SUHAS; Surgeon: Jovany Gonzalez MD; Location: [facility]; Service: ??? REPAIR RECTOCELE ??? TONSILLECTOMY ??? ZZC NONSPECIFIC PROCEDURE 06/2001 Colonoscopy - neg -- abstracted 12/26/01 Prior to Admission Medications Prior to Admission Medications Prescriptions Last Dose Informant Patient Reported? Taking? Continuous Blood Gluc Podiatry Assistant (DEXCOM G6 MONUMENT MASON) [facility] at [facility] No No Sig: USE DAILY Continuous Blood Gluc Sensor (DEXCOM G6 SENSOR) [facility] No No Sig: USE 1 SENSOR EVERY 10 DAYS Continuous Blood Gluc Transmit (DEXCOM G6 TRANSMITTER) [facility] DME at [facility] No No Sig: Change every 3 months [...] spray prn at prn No No Sig: Yreka 1 spray (4 mg) into one nostril alternating nostrils once as needed for opioid reversal nitroGLYcerin (NITROSTAT) 0.4 MG sublingual tablet prn at prn Self No No Sig: Place 1 tablet (0.4 mg) under the tongue every 5 minutes as needed for chest pain nystatin (MYCOSTATIN) [id number] UNIT/GM external ointment prn at prn Yes [...] 3D MIP reconstructions were performed by the technologist development COMPARISON: Chest CT on 09/06/2022. FINDINGS: Chest/mediastinum: [...] Michele, RN - 12/03/2022 2:26 PM CDT [facility] ED Nurse Handoff Report ED Chief [...] standby. Lift room needed: No. Bariatric: No Bomb Technician Needed: No Isolation: Yes. Infection: enteric Respiratory [...] Urine Negative Ketones Urine Trace (*) Specific [place] Urine 1.016 Blood Urine Negative pH Urine [...] around 0400. Pain is similar to previous [place] in September of this year. Left chest radiating to left arm. Also c/o shortness of breath, n/v, abd pain, and diarrhea. Recent hospitalization with c-dif. Took 4mg po zofran this AM with no results. Given additional zofran po en route. EMS unable to obtain IV access. HR=80. ZC=169. Has not taken insulin or other meds [...] Hydroxyzine Insulin aspart Levothyroxine Methocarbamol Metoprolol tartrate [place]-3 acid ethyl esters Pantoprazole Potassium gluconate Risperidone [...] Pressure Ventricular Rate 76 Atrial Rate 77 MA Interval 138 QRS Duration 90 QT 418 QTc 470 P [place] 7 R AXIS 42 T [place] 95 Interpretation ECG Undetermined rhythm ST & T wave abnormality, consider anterior ischemia Abnormal ECG When compared with ECG of 16-OCT-2022 18:19, Current undetermined rhythm precludes rhythm comparison, needs review Criteria for Anteroseptal infarct are no longer Present Nonspecific T wave abnormality no longer evident in Inferior leads Confirmed by - EMERGENCY ROOM, PHYSICIAN ([id number]), editorial assistant TALON GONZALES ([id number]) on 12/03/2022 10:28:45 AM *Note: Due to [...] Urine Negative Ketones Urine Trace (*) Specific [place] Urine 1.016 Blood Urine Negative pH Urine [...] as of 12/03/22 1450 TueDecember 03, 2022 0921 I obtained the patient's history and examined as noted above. [address] Sutton and staffed case with him. [address] Sutton regarding the patient. [address] Sutton regarding the patient. I paged out the hospitalist and rechecked the patient. I discussed pain management with him as well. 4380 I spoke with Raquel Rahman, hospitalist FELY, [...] section 70.4. Sincerely, MISAEL FRAGOSO MD System Concrete CarpenterOverlock Sewing Machine Operator [facility]. * Plan of Care - Walter [...] pain in her abdominal area 04/19, got MA IV Dilaudid @ 2 hr, medications, pt. [...] - 12/04/2022 6:04 AM CDT Shift from [id number] Inpatient Progress Note: For complete assessment see [...] monitor. * Pharmacy-Admission Medication History - Berna Sotelo, [facility] - 12/03/2022 2:04 PM CDT [...] since her last admission at [facility] in October 2022. I did review each medication on her RELATIONSHIP MANAGER med list with her. Pertinent Information: Has not taken her mediations in the past 3-4 days d/t to N/V. Colestipol, fenofibrate, rosuvastatin have not been filled since Jun 2022 although pt reports she still takes these medications. Changes made to RELATIONSHIP MANAGER medication list: ??? Added: None ??? Deleted: None ??? Changed: Non Allergies reviewed with patient and updates made in EHR: yes Medication History Completed By: Berna Sotelo, Garrett, [facility] December 03, 2022 Prior to Admission medications Medication Sig Last Dose Taking? Auth Provider Board Catcher End Date albuterol (PROAIR HFA/PROVENTIL HFA/VENTOLIN HFA) [...] Week at - Yes Dyan Fuentes MD Potassium Gluconate 595 [...] Unknown, Entered By History Continuous Blood Gluc Podiatry Assistant (DEXCOM G6 MONUMENT MASON) ANITA USE DAILY DME at [facility] Katiana Read MD Continuous Blood Gluc Sensor (DEXCOM G6 SENSOR) MISC USE 1 SENSOR EVERY 10 DAYS DME at [facility] Katiana Read MD Continuous Blood Gluc Transmit (DEXCOM G6 TRANSMITTER) MISC Change every 3 months to continuously monitor blood glucose. DME at [facility] Katiana Read MD EPINEPHrine (ANY BX GENERIC EQUIV) 0.3 MG/0.3ML injection 2-pack Inject 0.3 mLs (0.3 mg) into the muscle as needed for anaphylaxis (EPI-PEN) prn Dyan Fuentes MD insulin glargine (BASAGLAR KWIKPEN) 100 UNIT/ML pen Inject 10 Units Subcutaneous every morning 4 days ago at 4 days ago Dyan Fuentes MD Yes naloxone (NARCAN) 4 MG/0.1ML nasal spray Yreka 1 spray (4 mg) into one nostril alternating nostrilsonce as needed for opioid reversal prn at prn aMry Del Cid NP Yes nitroGLYcerin (NITROSTAT) 0.[address] 1 tablet (0.4 mg) under the tongue every 5minutes as needed for chest pain prn at prn Len Adhikari MD Yes nystatin (MYCOSTATIN) [id number] UNIT/GM external ointment Apply topically 2 times [...] st Contact Info) Description 08/18/2023 3:00 PM LITHOGRAPHIC STRIPPER Office Visit [facility] [address] [place] [address] Katiana Read MD [address] [place] [address] Scheduled Referrals Name Type Priority Associated Diagnoses [...] Awad DO LAB - BEAKER POCT LABORATORY [facility] [address] [facility], no room number) [place] [address], [place] [phone] * US Abdomen Complete w Doppler Complete (2022 8:56 AM CDT) Anatomical Region Laterality Modality Abdomen/Pelvis, Vascular Ultraso und 2022 8:56 AM CDT Impressions 2022 2:07 PM CDT IMPRESSION: 1. ??Hepatic steatosis. 2. ??Splenomegaly. 3. ??Normal abdominal liver duplex. Narrative 2022 2:07 PM CDT EXAM: ULTRASOUND ABDOMEN COMPLETE WITH DOPPLER COMPLETE LOCATION: [facility] DATE/TIME: 2022, 8:56 AM CDT INDICATION: Question [...] ULTRASOUND ABDOMEN COMPLETE WITH DOPPLER COMPLETE LOCATION: [facility] DATE/TIME: 2022, 8:56 AM CDT INDICATION: Question [...] Normal abdominal liver duplex. Shirlene Islas MD [facility] ORDERABLES * Magnesium (2022 6:54 AM CDT) Magnesium 1.7 1.7 - 2.3 mg/dL 2022 7:27 AM CDT [facility] LABORATORY Blood STRUCTURE OF RIGHT HAND / Unknown Venipuncture / Unknown 2022 6:54 AM CDT 2022 7:03 AM CDT Shirlene Islas MD LAB - BLOOD ORDERABL ES [facility] LABORATORY [facility] Acute Care Lab [address] Lab (1st floor, no room number) [place] [address], [place] [phone] * (ABNORMAL) CBC with platelets (2022 6:54 [...] MD LAB - BLOOD ORDERABL ES LABORATORY [facility] Acute Care Lab [address] Lab (1st floor, no room number) [place] [address], [place] [phone] * (ABNORMAL) Comprehensive metabolic panel (2022 6:54 [...] Islas MD LAB - BLOOD ORDERABL ES [facility] Lab [address] Lab (1st floor, no room number) [place] [address], [place] [phone] * (ABNORMAL) Glucose by meter (2022 2:33 AM CDT) GLUCOSE BY METER POCT 176(H) 70 - 99 mg/dL 2022 2:41 AM CDT LABORATORY POC Blood, Capillary BLOOD SPECIMEN / Unknown 2022 2:33 AM CDT 2022 2:41 AM CDT Oswaldo Awad DO LAB - BEAKER POCT Performing Organization Address City/[facility]/ZIP Co de Phone Number LABORATORY [facility] Lab [address] Lab (1st floor, no room number) [place] [address], [place] [phone] * (ABNORMAL) Glucose by meter (12/10/2022 10:18 PM CDT) GLUCOSE BY METER POCT 181(H) 70 - 99 mg/dL 12/10/2022 10:25 PM CDT LABORATORY POC Blood, Capillary BLOOD SPECIMEN / Unknown 12/10/2022 10:18 PM CDT 12/10/2022 10:25 PM CDT Oswaldo Awad DO LAB - BEAKER POCT LABORATORY [facility] Lab [address] Lab (1st floor, no room number) [place] [address], [place] [phone] * (ABNORMAL) Glucose by meter (12/10/2022 4:59 PM CDT) GLUCOSE BY METER POCT 175(H) 70 - 99 mg/dL 12/10/2022 5:06 PM CDT LABORATORY POC Blood, Capillary BLOOD SPECIMEN / Unknown 12/10/2022 4:59 PM CDT 12/10/2022 5:06 PM CDT Oswaldo Padilla Ritesh DO [facility] - BEJAGDEEP POCT Performing Organization Address City/[facility]/ZIP Co de Phone Number LABORATORY [facility] Lab [address] Lab (1st floor, no room number) [place] [address], [place] [phone] * (ABNORMAL) Glucose by meter (12/10/2022 1:30 PM CDT) GLUCOSE BY METER POCT 114(H) 70 - 99 mg/dL 12/10/2022 1:38 PM CDT LABORATORY POC Blood, Capillary BLOOD SPECIMEN / Unknown 12/10/2022 1:30 PM CDT 12/10/2022 1:38 PM CDT Oswaldo Awad DO [facility] - JOHN PAUL POCT Performing Organization Address [facility]/ZIP Co de Phone Number [facility] Lab [address] Lab (1st floor, no room number) [place] [id number], [place] [phone] * Morphology Tracking (12/10/2022 1:14 PM CDT) Blood STRUCTURE OF RIGHT HAND / Unknown Venipuncture / Unknown 12/10/2022 1:14 PM CDT 12/10/2022 1:24 PM CDT Shirlene Islas MD LAB - BLOOD ORDERABL ES Performing Organization Address City/[facility]/ZIP Co de Phone Number [facility] Lab [address] Lab (1st floor, no room number) [place] [address], [place] [phone] * (ABNORMAL) Reticulocyte count (12/10/2022 1:14 PM CDT) % Reticulocyte 2.2(H) 0.5 - 2.0 % 12/10/2022 1:41 PM CDT RH LABORATORY Absolute Reticulocyte 0.066 0.025 - 0.095 10e6/uL 12/10/2022 1:41 PM CDT [facility] LABORATORY Blood STRUCTURE OF RIGHT HAND / Unknown Venipuncture / Unknown 12/10/2022 1:14 PM CDT 12/10/2022 1:24 PM CDT Shirlene Islas MD LAB - BLOOD ORDERABL ES [facility] LABORATORY [facility] Acute Care Lab [address] [facility] Lab (1st floor, no room number) [place] [address], [place] [phone] * (ABNORMAL) CBC with platelets and differential [...] LAB - BLOOD ORDERABL ES RH LABORATORY [facility] Acute Care Lab [address] Lab (1st floor, no room number) [place] [place] [address], [place] [phone] * Bld morphology pathology review (12/10/2022 1:14 PM CDT) Final Diagnosis Peripheral blood for morphology: -Mild normochromic, macrocytic anemia without evidence of red cell regeneration -Moderate leukopenia with normal absolute numbers of neutrophils and lymphocytes and normal leukocyte morphologies -Low normal platelet count 12/13/2022 2:[address] [facility] Comment Patient has a number [...] morphology or circulating blasts. 12/13/2022 2:[address] [facility] Clinical Information Pancytopenia 12/13/2022 2:[address] [facility] Peripheral Smear ERYTHROCYTES: The hemoglobin [...] than 50: Marked thrombocytopenia 12/13/2022 2:[address] [facility] Peripheral Hematologic Data CBC with [...] <=0.4 10e3/uL Normal 12/13/2022 2:59 PM CDT [facility] Performing Labs The technical component of this testing was completed at [facility], [facility] and [facility] 12/13/2022 2:59 PM CDT [facility] Blood BLOOD SPECIMEN / Unknown [...] interpretation. Shirlene TOSCANO - JOHN PAUL MOTA [facility] Lab [address] 1st Floor, [address] [place] [address] * CT Abdomen Pelvis w Contrast (12/10/2022 [...] 12/10/2022 7:25 AM CDT Oswaldo HIGH - [facility] PO[facility] LABORATORY [facility] Lab [address] [facility] Lab (1st floor, no room number) [place] [address], [place] [phone] * (ABNORMAL) CBC with platelets (12/10/2022 6:55 [...] Islas MD LAB - BLOOD ORDERABL ES [facility] [address] Lab (1st floor, no room number) [place] [address], [place] [phone] * (ABNORMAL) Magnesium (12/10/2022 6:55 AM CDT) Magnesium 1.6(L) 1.7 - 2.3 mg/dL 12/10/2022 7:49 AM CDT [facility] LABORATORY Blood STRUCTURE OF LEFT HAND / Unknown Venipuncture / Unknown 12/10/2022 6:55 AM CDT 12/10/2022 7:27 AM CDT Shirlene Islas MD LAB - BLOOD ORDERABL ES LABORATORY [facility] Lab [address] Lab (1st floor, no room number) [place] [address], [place] [phone] * (ABNORMAL) Comprehensive metabolic panel (12/10/2022 6:55 [...] LAB - BLOOD ORDERABLES Performing Organization Address City/[facility]/ZIP Co de Phone Number [facility] [address] Lab (1st floor, no room number) [place] [address], [place] [phone] * (ABNORMAL) Glucose by meter (12/10/2022 1:59 AM CDT) GLUCOSE BY METER POCT 111(H) 70 - 99 mg/dL 12/10/2022 2:06 AM CDT LABORATORY POC Blood, Capillary BLOOD SPECIMEN / Unknown 12/10/2022 1:59 AM CDT 12/10/2022 2:06 AM CDT Oswaldo HIGH - BEAKER POCT Performing Organization Address [facility]/ZIP Co de Phone Number LABORATORY [facility] Lab [address] Lab (1st floor, no room number) [place] [address], [place] [phone] * (ABNORMAL) Glucose by meter (12/09/2022 9:48 PM CDT) GLUCOSE BY METER POCT 180(H) 70 - 99 mg/dL 12/09/2022 9:57 PM CDT LABORATORY POC Blood, Capillary BLOOD SPECIMEN / Unknown 12/09/2022 9:48 PM CDT 12/09/2022 9:57 PM CDT Oswaldo HIGH - JOHN PAUL POCT Performing Organization Address City/[facility]/ZIP Co de Phone Number LABORATORY [facility] Lab [address] Lab (1st floor, no room number) [place] [address], [place] [phone] * (ABNORMAL) Glucose by meter (12/09/2022 6:02 PM CDT) GLUCOSE BY METER POCT 133(H) 70 - 99 mg/dL 12/09/2022 6:09 PM CDT RH LABORATORY POC Blood, Capillary BLOOD SPECIMEN / Unknown 12/09/2022 6:02 PM CDT 12/09/2022 6:09 PM CDT Oswaldo Awad DO LAB - BEAKER POCT LABORATORY [facility] [address] Lab (1st floor, no room number) [place] [address], [place] [phone] * (ABNORMAL) Glucose by meter (12/09/2022 12:30 PM CDT) GLUCOSE BY METER POCT 180(H) 70 - 99 mg/dL 12/09/2022 12:37 PM CDT RH LABORATORY POC Blood, Capillary BLOOD SPECIMEN / Unknown 12/09/2022 12:30 PM CDT 12/09/2022 12:37 PM CDT Oswaldo HIGH - JOHN PAUL POCT LABORATORY [facility] Lab [address] Lab (1st floor, no room number) [place] [address], [place] [phone] * Glucose by meter (12/09/2022 8:19 AM CDT) GLUCOSE BY METER POCT 99 70 - 99 mg/dL 12/09/2022 8:26 AM CDT LABORATORY POC Blood, Capillary BLOOD SPECIMEN / Unknown 12/09/2022 8:19 AM CDT 12/09/2022 8:26 AM CDT Oswaldo Awad DO LAB - BEJAGDEEP POCT LABORATORY [facility] Lab [address] Lab (1st floor, no room number) [place] [address], [place] [phone] * (ABNORMAL) CBC with platelets (12/09/2022 8:06 [...] LAB - BLOOD ORDERABL ES RH LABORATORY [facility] Lab [address] Lab (1st floor, no room number) [place] [address], [place] [phone] * (ABNORMAL) Magnesium (12/09/2022 7:08 AM CDT) Magnesium 1.6(L) 1.7 - 2.3 mg/dL 12/09/2022 7:38 AM CDT RH LABORATORY Blood STRUCTURE OF LEFT HAND / Unknown Venipuncture / Unknown 12/09/2022 7:08 AM CDT 12/09/2022 7:17 AM CDT Shirlene Islas MD LAB - BLOOD ORDERABL ES RH LABORATORY [facility] Lab [address] Lab (1st floor, no room number) [place] [address], [place] [phone] * (ABNORMAL) Comprehensive metabolic panel (12/09/2022 7:08 [...] Rahman PA-C LAB - BLOOD ORDERABLES LABORATORY [facility] Lab [address] Lab (1st floor, no room number) [place] [address], [place] [phone] * (ABNORMAL) Glucose by meter (12/09/2022 1:52 AM CDT) GLUCOSE BY METER POCT 115(H) 70 - 99 mg/dL 12/09/2022 1:59 AM CDT LABORATORY POC Blood, Capillary BLOOD SPECIMEN / Unknown 12/09/2022 1:52 AM CDT 12/09/2022 1:59 AM CDT Oswaldo Awad DO LAB - BEAKER POCT LABORATORY POC [facility] Lab [address] Lab (1st floor, no room number) [place] [address], [place] [phone] * (ABNORMAL) Glucose by meter (12/08/2022 9:37 PM CDT) GLUCOSE BY METER POCT 148(H) 70 - 99 mg/dL 12/08/2022 9:44 PM CDT RH LABORATORY POC Blood, Capillary BLOOD SPECIMEN / Unknown 12/08/2022 9:37 PM CDT 12/08/2022 9:44 PM CDT Oswaldo HIGH - JOHN PAUL POCT RH LABORATORY [facility] Lab [address] Lab (1st floor, no room number) [place] [address], [place] [phone] * (ABNORMAL) Glucose by meter (12/08/2022 5:37 PM CDT) GLUCOSE BY METER POCT 143(H) 70 - 99 mg/dL 12/08/2022 5:45 PM CDT RH LABORATORY POC Blood, Capillary BLOOD SPECIMEN / Unknown 12/08/2022 5:37 PM CDT 12/08/2022 5:45 PM CDT Oswaldo HIGH - JOHN PAUL POCT Performing Organization Address [facility]/ZIP Co de Phone Number LABORATORY [facility] Lab [address] Lab (1st floor, no room number) [place] [address], [place] [phone] * (ABNORMAL) Glucose by meter (12/08/2022 12:31 PM CDT) GLUCOSE BY METER POCT 114(H) 70 - 99 mg/dL 12/08/2022 12:38 PM CDT LABORATORY POC Blood, Capillary BLOOD SPECIMEN / Unknown 12/08/2022 12:31 PM CDT 12/08/2022 12:38 PM CDT Oswaldo HIGH - JOHN PAUL POCT LABORATORY [facility] [address] Lab (1st floor, no room number) [place] [address], [place] [phone] * (ABNORMAL) Glucose by meter (12/08/2022 8:25 AM CDT) GLUCOSE BY METER POCT 184(H) 70 - 99 mg/dL 12/08/2022 8:32 AM CDT LABORATORY POC Blood, Capillary BLOOD SPECIMEN / Unknown 12/08/2022 8:25 AM CDT 12/08/2022 8:32 AM CDT Oswaldo Awad DO LAB - BEAKER POCT Performing Organization Address City/[facility]/ZIP Co de Phone Number LABORATORY POC [facility] Lab [address] Lab (1st floor, no room number) [place] [address], [place] [phone] * (ABNORMAL) Magnesium (12/08/2022 6:28 AM CDT) Magnesium 1.6(L) 1.7 - 2.3 mg/dL 12/08/2022 7:02 AM CDT LABORATORY Blood STRUCTURE OF RIGHT HAND / Unknown Venipuncture / Unknown 12/08/2022 6:28 AM CDT 12/08/2022 6:39 AM CDT Mike Parson MD LAB - BLOOD ORDER LENA Performing Organization Address [facility]/ZIP Co de Phone Number LABORATORY [facility] Lab [address] Lab (1st floor, no room number) [place] [address], [place] [phone] * (ABNORMAL) Comprehensive metabolic panel (12/08/2022 6:28 [...] Rahman PA-C LAB - BLOOD ORDERABLES LABORATORY [facility] Lab [address] Lab (1st floor, no room number) [place] [address], [place] [phone] * (ABNORMAL) Glucose by meter (12/08/2022 2:20 AM CDT) GLUCOSE BY METER POCT 157(H) 70 - 99 mg/dL 12/08/2022 2:27 AM CDT RH LABORATORY POC Blood, Capillary BLOOD SPECIMEN / Unknown 12/08/2022 2:20 AM CDT 12/08/2022 2:27 AM CDT Oswaldo HIGH [employer] POCT LABORATORY [facility] Lab [address] Lab (1st floor, no room number) [place] [address], [place] [phone] * (ABNORMAL) Glucose by meter (12/07/2022 9:20 PM CDT) GLUCOSE BY METER POCT 153(H) 70 - 99 mg/dL 12/07/2022 9:27 PM CDT LABORATORY POC Blood, Capillary BLOOD SPECIMEN / Unknown 12/07/2022 9:20 PM CDT 12/07/2022 9:27 PM CDT Oswaldo HIGH [employer] JOHN PAUL POCT LABORATORY [facility] Lab [address] Lab (1st floor, no room number) [place] [address], [place] [phone] * (ABNORMAL) Glucose by meter (12/07/2022 5:41 PM CDT) GLUCOSE BY METER POCT 151(H) 70 - 99 mg/dL 12/07/2022 5:54 PM CDT LABORATORY POC Blood, Capillary BLOOD SPECIMEN / Unknown 12/07/2022 5:41 PM CDT 12/07/2022 5:54 PM CDT Oswaldo HIGH - BEAKER POCT RH LABORATORY POC [facility] Lab [address] Lab (1st floor, no room number) [place] [phone], [place] [phone] * (ABNORMAL) Glucose by meter (12/07/2022 11:47 AM CDT) GLUCOSE BY METER POCT 144(H) 70 - 99 mg/dL 12/07/2022 11:54 AM CDT RH LABORATORY POC Blood, Capillary BLOOD SPECIMEN / Unknown 12/07/2022 11:47 AM CDT 12/07/2022 11:54 AM CDT Oswaldo HIGH - JOHN PAUL POCT Performing Organization Address City/[facility]/ZIP Co de Phone Number LABORATORY [facility] Lab [address] Lab (1st floor, no room number) [place] [phone], [place] [phone] * (ABNORMAL) Glucose by meter (12/07/2022 6:59 AM CDT) GLUCOSE BY METER POCT 102(H) 70 - 99 mg/dL 12/07/2022 7:06 AM CDT RH LABORATORY POC Blood, Capillary BLOOD SPECIMEN / Unknown 12/07/2022 6:59 AM CDT 12/07/2022 7:06 AM CDT Oswaldo HIGH - BEAKER POCT LABORATORY [facility] [address] Lab (1st floor, no room number) [place] [phone], [place] [phone] * Extra Purple Top Tube (12/07/2022 6:11 AM CDT) Hold Specimen JIC 12/07/2022 7:32 AM CDT RH LABORATORY Blood STRUCTURE OF RIGHT UPPER LIMB / Unknown Venipuncture / Unknown 12/07/2022 6:11 AM CDT 12/07/2022 6:20 AM CDT Oswaldo Awad DO LAB - BLOOD ORDERAB LES [facility] Lab [address] Lab (1st floor, no room number) [place] [address], [place] [phone] * Magnesium (12/07/2022 6:11 AM CDT) Magnesium 1.8 1.7 - 2.3 mg/dL 12/07/2022 6:35 AM CDT LABORATORY Blood STRUCTURE OF RIGHT UPPER LIMB / Unknown Venipuncture / Unknown 12/07/2022 6:11 AM CDT 12/07/2022 6:15 AM CDT Dimitri Harrell MD LAB - BLO OD ORDERABLES [facility] Lab [address] Lab (1st floor, no room number) [place] [address], [place] [phone] * (ABNORMAL) Comprehensive metabolic panel (12/07/2022 6:11 [...] Rahman PA-C LAB - BLOOD ORDERABLES LABORATORY [facility] Lab [address] Lab (1st floor, no room number) [place] [address], [place] [phone] * (ABNORMAL) Glucose by meter (12/07/2022 2:22 AM CDT) [facility] GLUCOSE BY METER POCT 157(H) 70 - 99 mg/dL 12/07/2022 2:28 AM CDT LABORATORY POC Blood, Capillary BLOOD SPECIMEN / Unknown 12/07/2022 2:22 AM CDT 12/07/2022 2:28 AM CDT Oswaldo Awad DO LAB - JOHN PAUL POCT LABORATORY [facility] Lab [address] Lab (1st floor, no room number) [place] [address], [place] [phone] * (ABNORMAL) Glucose by meter (12/06/2022 10:14 PM CDT) GLUCOSE BY METER POCT 153(H) 70 - 99 mg/dL 12/06/2022 10:22 PM CDT LABORATORY POC Blood, Capillary BLOOD SPECIMEN / Unknown 12/06/2022 10:14 PM CDT 12/06/2022 10:22 PM CDT Oswaldo HIGH - JOHN PAUL POCT Performing Organization Address City/[facility]/ZIP Co de Phone Number LABORATORY [facility] Lab [address] Lab (1st floor, no room number) [place] [address], [place] [phone] * (ABNORMAL) Glucose by meter (12/06/2022 5:31 PM CDT) GLUCOSE BY METER POCT 169(H) 70 - 99 mg/dL 12/06/2022 5:38 PM CDT LABORATORY POC Blood, Capillary BLOOD SPECIMEN / Unknown 12/06/2022 5:31 PM CDT 12/06/2022 5:38 PM CDT Oswaldo Awad DO LAB - JOHN PAUL POCT LABORATORY [facility] Lab [address] Lab (1st floor, no room number) [place] [address], [place] [phone] * (ABNORMAL) Glucose by meter (12/06/2022 2:49 PM CDT) GLUCOSE BY METER POCT 130(H) 70 - 99 mg/dL 12/06/2022 2:57 PM CDT RH LABORATORY POC Blood, Capillary BLOOD SPECIMEN / Unknown 12/06/2022 2:49 PM CDT 12/06/2022 2:57 PM CDT Oswaldo HIGH - JOHN PAUL POCT RH LABORATORY [facility] [address] Lab (1st floor, no room number) [place] [address], [place] [phone] * (ABNORMAL) Glucose by meter (12/06/2022 2:14 PM CDT) GLUCOSE BY METER POCT 129(H) 70 - 99 mg/dL 12/06/2022 2:31 PM CDT RH LABORATORY POC Blood, Capillary BLOOD SPECIMEN / Unknown 12/06/2022 2:14 PM CDT 12/06/2022 2:31 PM CDT Oswaldo HIGH - JOHN PAUL POCT Performing Organization Address City/[facility]/ZIP Co de Phone Number LABORATORY [facility] Lab [address] Lab (1st floor, no room number) [place] [address], [place] [phone] * (ABNORMAL) Glucose by meter (12/06/2022 10:06 AM CDT) GLUCOSE BY METER POCT 106(H) 70 - 99 mg/dL 12/06/2022 10:14 AM CDT RH LABORATORY POC Blood, Capillary BLOOD SPECIMEN / Unknown 12/06/2022 10:06 AM CDT 12/06/2022 10:14 AM CDT Oswaldo HIGH - JOHN PAUL POCT LABORATORY [facility] Lab [address] Lab (1st floor, no room number) [place] [address], [place] [phone] * (ABNORMAL) Platelet count (12/06/2022 6:20 AM CDT) [facility] Platelet Count 133(L) 150 - 450 10e3/uL 12/06/2022 6:31 AM CDT LABORATORY Blood BLOOD SPECIMEN / Unknown Venipuncture / Unknown 12/06/2022 6:20 AM CDT 12/06/2022 6:26 AM CDT Raquel Rahman PA-C LAB - BLOOD ORDERABLES LABORATORY [facility] Lab [address] [facility] Lab (1st floor, no room number) [place] [address], [place] [phone] * Magnesium (12/06/2022 6:20 AM CDT) [facility] Magnesium 2.0 1.7 - 2.3 mg/dL 12/06/2022 7:04 AM CDT LABORATORY Blood BLOOD SPECIMEN / Unknown Venipuncture / Unknown 12/06/2022 6:20 AM CDT 12/06/2022 6:26 AM CDT Dimitri Harrell MD LAB - BLO OD ORDERABLES LABORATORY [facility] Lab [address] Lab (1st floor, no room number) [place] [address], [place] [phone] * (ABNORMAL) Comprehensive metabolic panel (12/06/2022 6:20 AM CDT) [facility] Sodium 140 136 - 145 mmol/L [...] Rahman PA-C LAB - BLOOD ORDERABLES LABORATORY [facility] Lab [address] Lab (1st floor, no room number) [place] [address], [place] [phone] * (ABNORMAL) Glucose by meter (12/06/2022 2:16 AM CDT) GLUCOSE BY METER POCT 118(H) 70 - 99 mg/dL 12/06/2022 2:23 AM CDT RH LABORATORY POC Blood, Capillary BLOOD SPECIMEN / Unknown 12/06/2022 2:16 AM CDT 12/06/2022 2:23 AM CDT Oswaldo Awad DO DORCAS - JOHN PAUL POCT LABORATORY [facility] Lab [address] Lab (1st floor, no room number) [place] [address], [place] [phone] * (ABNORMAL) Glucose by meter (12/05/2022 9:49 PM CDT) GLUCOSE BY METER POCT 111(H) 70 - 99 mg/dL 12/05/2022 9:56 PM CDT LABORATORY POC Blood, Capillary BLOOD SPECIMEN / Unknown 12/05/2022 9:49 PM CDT 12/05/2022 9:56 PM CDT Oswaldo HIGH Seth [employer] POCT LABORATORY [facility] Lab [address] Lab (1st floor, no room number) [place] [address], [place] [phone] * (ABNORMAL) Glucose by meter (12/05/2022 6:07 PM CDT) GLUCOSE BY METER POCT 134(H) 70 - 99 mg/dL 12/05/2022 6:14 PM CDT LABORATORY POC Blood, Capillary BLOOD SPECIMEN / Unknown 12/05/2022 6:07 PM CDT 12/05/2022 6:14 PM CDT Oswaldo HIGH - JOHN PAUL POCT RH LABORATORY [facility] Lab [address] Lab (1st floor, no room number) [place] [phone], [place] [phone] * (ABNORMAL) Glucose by meter (12/05/2022 2:18 PM CDT) GLUCOSE BY METER POCT 143(H) 70 - 99 mg/dL 12/05/2022 2:25 PM CDT RH LABORATORY POC Blood, Capillary BLOOD SPECIMEN / Unknown 12/05/2022 2:18 PM CDT 12/05/2022 2:25 PM CDT Oswaldo Awad DO LAB - JOHN PAUL POCT Performing Organization Address [facility]/ZIP Co de Phone Number LABORATORY [facility] Lab [address] Lab (1st floor, no room number) [place] [phone], [place] [phone] * (ABNORMAL) Glucose by meter (12/05/2022 10:09 AM CDT) GLUCOSE BY METER POCT 142(H) 70 - 99 mg/dL 12/05/2022 10:16 AM CDT RH LABORATORY POC Blood, Capillary BLOOD SPECIMEN / Unknown 12/05/2022 10:09 AM CDT 12/05/2022 10:16 AM CDT Oswaldo HIGH - REYESAKER POCT LABORATORY [facility] Lab [address] Lab (1st floor, no room number) [place] [phone], [place] [phone] * Magnesium (12/05/2022 5:59 AM CDT) Magnesium 2.3 1.7 - 2.3 mg/dL 12/05/2022 6:49 AM CDT RH LABORATORY Blood STRUCTURE OF RIGHT HAND / Unknown Venipuncture / Unknown 12/05/2022 5:59 AM CDT 12/05/2022 6:10 AM CDT Dimitri Harrell MD LAB - BLO OD ORDERABLES LABORATORY [facility] Lab [address] Lab (1st floor, no room number) [place] [address], [place] [phone] * (ABNORMAL) Comprehensive metabolic panel (12/05/2022 5:59 [...] Raquel Rahman PA-C LAB - BLOOD ORDERABLES [facility] Lab [address] Lab (1st floor, no room number) [place] [address], [place] [phone] * (ABNORMAL) Glucose by meter (12/05/2022 5:42 AM CDT) GLUCOSE BY METER POCT 145(H) 70 - 99 mg/dL 12/05/2022 5:57 AM CDT LABORATORY POC Blood, Capillary BLOOD SPECIMEN / Unknown 12/05/2022 5:42 AM CDT 12/05/2022 5:57 AM CDT Oswaldo HIGH - BEAKER POCT LABORATORY [facility] Lab [address] Lab (1st floor, no room number) [place] [address], [place] [phone] * (ABNORMAL) Glucose by meter (12/05/2022 1:41 AM CDT) GLUCOSE BY METER POCT 124(H) 70 - 99 mg/dL 12/05/2022 1:47 AM CDT LABORATORY POC Blood, Capillary BLOOD SPECIMEN / Unknown 12/05/2022 1:41 AM CDT 12/05/2022 1:47 AM CDT Oswaldo HIGH - JOHN PAUL POCT Performing Organization Address City/[facility]/ZIP Co de Phone Number LABORATORY [facility] [address] Lab (1st floor, no room number) [place] [address], [place] [phone] * (ABNORMAL) Magnesium (12/04/2022 9:54 PM CDT) Magnesium 2.6(H) 1.7 - 2.3 mg/dL 12/04/2022 10:15 PM CDT LABORATORY Blood STRUCTURE OF RIGHT UPPER LIMB / Unknown Venipuncture / Unknown 12/04/2022 9:54 PM CDT 12/04/2022 9:57 PM CDT Dimitri Harrell MD LAB - BLO OD ORDERABLES Performing Organization Address [facility]/ZIP Co de Phone Number [facility] [address] Lab (1st floor, no room number) [place] [address], [place] [phone] * (ABNORMAL) Glucose by meter (12/04/2022 9:38 PM CDT) GLUCOSE BY METER POCT 132(H) 70 - 99 mg/dL 12/04/2022 9:44 PM CDT LABORATORY POC Blood, Capillary BLOOD SPECIMEN / Unknown 12/04/2022 9:38 PM CDT 12/04/2022 9:44 PM CDT Oswaldo HIGH - JOHN PAUL POCT Performing Organization Address City/[facility]/ZIP Co de Phone Number [facility] Lab [address] Lab (1st floor, no room number) [place] [address], [place] [phone] * (ABNORMAL) Glucose by meter (12/04/2022 5:59 PM CDT) GLUCOSE BY METER POCT 145(H) 70 - 99 mg/dL 12/04/2022 6:06 PM CDT LABORATORY POC Blood, Capillary BLOOD SPECIMEN / Unknown 12/04/2022 5:59 PM CDT 12/04/2022 6:06 PM CDT Oswaldo HIGH - BEAKER POCT Performing Organization Address [facility]/ZIP Co de Phone Number LABORATORY [facility] Lab [address] Lab (1st floor, no room number) [place] [address], [place] [phone] * (ABNORMAL) Magnesium (12/04/2022 3:27 PM CDT) Magnesium 1.5(L) 1.7 - 2.3 mg/dL 12/04/2022 3:51 PM CDT LABORATORY Blood STRUCTURE OF LEFT HAND / Unknown Venipuncture / Unknown 12/04/2022 3:27 PM CDT 12/04/2022 3:30 PM CDT Dimitri Harrell MD LAB - BLO OD ORDERABLES Performing Organization Address [facility]/ZIP Co de Phone Number [facility] [address] Lab (1st floor, no room number) [place] [address], [place] [phone] * (ABNORMAL) Glucose by meter (12/04/2022 2:06 PM CDT) GLUCOSE BY METER POCT 155(H) 70 - 99 mg/dL 12/04/2022 2:13 PM CDT LABORATORY POC Blood, Capillary BLOOD SPECIMEN / Unknown 12/04/2022 2:06 PM CDT 12/04/2022 2:13 PM CDT Oswaldo HIGH - BEAKER POCT Performing Organization Address City/[facility]/ZIP Co de Phone Number RH LABORATORY POC [facility] Lab [address] Lab (1st floor, no room number) [place] [address], [place] [phone] * (ABNORMAL) Glucose by meter (12/04/2022 10:01 AM CDT) GLUCOSE BY METER POCT 170(H) 70 - 99 mg/dL 12/04/2022 10:08 AM CDT LABORATORY POC Blood, Capillary BLOOD SPECIMEN / Unknown 12/04/2022 10:01 AM CDT 12/04/2022 10:08 AM CDT Oswaldo Awad DO LAB - BEAKER POCT LABORATORY POC [facility] [address] Lab (1st floor, no room number) [place] [address], [place] [phone] * (ABNORMAL) Lipase (12/04/2022 7:03 AM CDT) Lipase 89(H) 13 - 60 U/L 12/04/2022 7:43 AM CDT LABORATORY Blood STRUCTURE OF LEFT HAND / Unknown Venipuncture / Unknown 12/04/2022 7:03 AM CDT 12/04/2022 7:23 AM CDT Raquel Rahman PA-C LAB - BLOOD ORDERABLES LABORATORY [facility] [address] Lab (1st floor, no room number) [place] [address], [place] [phone] * (ABNORMAL) Comprehensive metabolic panel (12/04/2022 7:03 [...] Rahman PA-C LAB - BLOOD ORDERABLES LABORATORY [facility] [address] Lab (1st floor, no room number) [place] [address], [place] [phone] * (ABNORMAL) Glucose by meter (12/04/2022 6:23 AM CDT) GLUCOSE BY METER POCT 169(H) 70 - 99 mg/dL 12/04/2022 6:30 AM CDT LABORATORY POC Blood, Capillary BLOOD SPECIMEN / Unknown 12/04/2022 6:23 AM CDT 12/04/2022 6:30 AM CDT Oswaldo Awad LAB - BEAKER POCT RH LABORATORY POC [facility] [address] Lab (1st floor, no room number) [place] [address], [place] [phone] * (ABNORMAL) Glucose by meter (12/04/2022 2:01 AM CDT) GLUCOSE BY METER POCT 187(H) 70 - 99 mg/dL 12/04/2022 2:08 AM CDT LABORATORY POC Blood, Capillary BLOOD SPECIMEN / Unknown 12/04/2022 2:01 AM CDT 12/04/2022 2:08 AM CDT Oswaldo Awad LAB - BEAKER POCT LABORATORY POC [facility] Lab [address] Lab (1st floor, no room number) [place] [address], [place] [phone] * (ABNORMAL) UA reflex to Microscopic (12/03/2022 11:11 PM CDT) Color Urine Yellow Colorless, Straw, Light Yellow, Yellow 12/03/2022 11:37 PM CDT LABORATORY Appearance Urine Slightly Cloudy(A) Clear 12/03/2022 11:37 PM CDT LABORATORY Glucose Urine Negative Negative mg/dL 12/03/2022 11:37 PM CDT LABORATORY Bilirubin Urine Negative Negative 11:37 PM CDT LABORATORY Ketones Urine Negative Negative mg/dL 12/03/2022 11:37 PM CDT LABORATORY Specific [place] Urine 1.027 1.003 - 1.035 12/03/2022 11:37 [...] Rahman PA-C LAB - URINE ORDERABLES LABORATORY [facility] Lab [address] Lab (1st floor, no room number) [place] [address], [place] [phone] * (ABNORMAL) Glucose by meter (12/03/2022 9:59 PM CDT) [facility] Signature GLUCOSE BY METER POCT 219(H) 70 - 99 mg/dL 12/03/2022 10:08 PM CDT RH LABORATORY POC Blood, Capillary BLOOD SPECIMEN / Unknown 12/03/2022 9:59 PM CDT 12/03/2022 10:08 PM CDT Oswaldo Awad DO LAB - JOHN PAUL POCT LABORATORY [facility] [address] Lab (1st floor, no room number) [place] [address], [place] [phone] * (ABNORMAL) Glucose by meter (12/03/2022 9:25 PM CDT) GLUCOSE BY METER POCT 208(H) 70 - 99 mg/dL 12/03/2022 9:31 PM CDT LABORATORY POC Blood, Capillary BLOOD SPECIMEN / Unknown 12/03/2022 9:25 PM CDT 12/03/2022 9:31 PM CDT Oswaldo HIGH - JOHN PAUL POCT Performing Organization Address [facility]/ZIP Co de Phone Number LABORATORY [facility] [address] Lab (1st floor, no room number) [place] [address], [place] [phone] * (ABNORMAL) Glucose by meter (12/03/2022 6:49 PM CDT) GLUCOSE BY METER POCT 204(H) 70 - 99 mg/dL 12/03/2022 6:57 PM CDT LABORATORY POC Blood, Capillary BLOOD SPECIMEN / Unknown 12/03/2022 6:49 PM CDT 12/03/2022 6:57 PM CDT Oswaldo Awad DO LAB - JOHN PAUL POCT LABORATORY [facility] [address] Lab (1st floor, no room number) [place] [address], [place] [phone] * (ABNORMAL) Troponin T, High Sensitivity (now) [...] Kaur PA-C LAB - BLOOD ORDER LENA [facility] [address] floor, no room number) [place] [address], [place] [phone] * CT Chest Pulmonary Embolism w Contrast [...] 3D MIP reconstructions were performed by the technologist development COMPARISON: ??Chest CT on 09/06/2022. FINDINGS: Chest/mediastinum: [...] 3D MIP reconstructions were performed by the technologist development COMPARISON: Chest CT on 09/06/2022. FINDINGS: Chest/mediastinum: [...] 12/03/2022 11:25 AM CDT RH LABORATORY Specific [place] Urine 1.016 1.003 - 1.035 12/03/2022 11:25 [...] MD LAB - URINE ORDER LENA LABORATORY [facility] [address] Lab (1st floor, no room number) [place] [address], [place] [phone] * (ABNORMAL) D dimer quantitative (12/03/2022 9:56 AM CDT) [facility] Signature D-Dimer Quantitative 2.08(H) 0.00 - 0.50 [...] - BLOOD ORDER LENA Performing Organization Address City/[facility] Co de Phone Number [facility] [address] Lab (1st floor, no room number) [place] [id number], [place] [phone] * (ABNORMAL) T4 free (12/03/2022 9:46 AM CDT) Free T4 0.74(L) 0.90 - 1.70 ng/dL 12/03/2022 12:10 PM CDT LABORATORY Blood BLOOD SPECIMEN / Unknown Venipuncture / Unknown 12/03/2022 9:46 AM CDT 12/03/2022 9:52 AM CDT Dyan Kaur PA-C LAB - BLOOD ORDER LENA Performing Organization Address [facility] Co de Phone Number [facility] [address] Lab (1st floor, no room number) [place] [phone], [place] [phone] * (ABNORMAL) TSH with free T4 reflex (12/03/2022 9:46 AM CDT) TSH 22.03(H) 0.30 - 4.20 uIU/mL 12/03/2022 11:32 AM CDT LABORATORY Blood BLOOD SPECIMEN / Unknown Venipuncture / Unknown 12/03/2022 9:46 AM CDT 12/03/2022 9:52 AM CDT Dyan Kaur PA-C LAB - BLOOD ORDER LENA Performing Organization Address City/[facility] Co de Phone Number [facility] Lab [address] Lab (1st floor, no room number) [place] [address], [place] [phone] * BNP (12/03/2022 9:46 AM CDT) N [...] - BLOOD ORDER LENA Performing Organization Address City/[facility]/ZIP Co de Phone Number [facility] Lab [address] Lab (1st floor, no room number) [place] [address], [place] [phone] * (ABNORMAL) Lipase (12/03/2022 9:46 AM CDT) Lipase 220(H) 13 - 60 U/L 12/03/2022 10:14 AM CDT LABORATORY Blood BLOOD SPECIMEN / Unknown Venipuncture / Unknown 12/03/2022 9:46 AM CDT 12/03/2022 9:52 AM CDT Dyan Kaur PA-C LAB - BLOOD ORDER LENA [facility] [address] Lab (1st floor, no room number) [place] [address], [place] [phone] * (ABNORMAL) Hepatic panel (12/03/2022 9:46 AM CDT) [facility] Protein Total 6.5 6.4 - 8.3 [...] PA-C LAB - BLOOD ORDER LENA LABORATORY [facility] Lab [address] Lab (1st floor, no room number) [place] [address], [place] [phone] * (ABNORMAL) CBC with platelets and differential (12/03/2022 9:46 AM CDT) [facility] WBC Count 3.1(L) 4.0 - 11.0 [...] PA-C LAB - BLOOD ORDER LENA LABORATORY [facility] Lab [address] Lab (1st floor, no room number) [place] [address], [place] [phone] * (ABNORMAL) Basic metabolic panel (BMP) (12/03/2022 [...] - BLOOD ORDER LENA Performing Organization Address City/[facility]/ZIP Co de Phone Number [facility] [address] Lab (1st floor, no room number) [place] [address], [place] [phone] * (ABNORMAL) Troponin T, High Sensitivity (now) [...] Kaur PA-C LAB - BLOOD ORDER LENA [facility] [address] Lab (1st floor, no room number) [place] [address], [place] [phone] * EKG 12 lead (12/03/2022 9:38 AM CDT) Systolic Blood Pressure mmHg RADIOLOGY RESULTS Diastolic Blood Pressure mmHg RADIOLOGY RESULTS Ventricular Rate 76 BPM RAD IOLOGY RESULTS Atrial Rate 77 BPM RADIOLOG Y RESULTS MA Interval 138 ms RADIOLOG Y RESULTS QRS Duration 90 ms RADIOLO GY RESULTS QT 418 ms RADIOLOGY RESULTS QTc 470 ms RADIOLOGY RESULTS P [place] 7 degrees RADIOLOGY RESULTS R AXIS 42 degrees RADIOLOGY RESULTS T [place] 95 degrees RADIOLOGY RESULTS Interpretation ECG Undetermined rhythm ST & T wave abnormality, consider anterior ischemia Abnormal ECG When compared with ECG of 16-OCT-2022 18:19, Current undetermined rhythm precludes rhythm comparison, needs review Criteria for Anteroseptal infarct are no longer Present Nonspecific T wave abnormality no longer evident in Inferior leads Confirmed by - EMERGENCY ROOM, PHYSICIAN ([id number]), editorial assistant TALON GONZALES ([id number]) on 12/03/2022 10:28:45 AM RADIOLOGY RESULTS 12/03/2022 [...] RN) 0731 ($Given - Provider: Radha Healy, ZTIA)1345 ($Given - Provider: Radha Healy, ZITA)2022 ($Given [...] Healy, ZITA) 0910 ($Given - Provider: Dyan Washbunr, ZITA) desvenlafaxine (PRISTIQ) 24 hr tablet 50 [...] RN)0911 (Patch in Place - Provider: Dyan Wsahburn, ZITA)1800 (Canceled Entry - Provider: Orders Generic [...] 0909 ($Given - Provider: Dyan Washburn RN) rosuvastatin (CRESTOR) tablet 40 mg [...] bowel prep regimen prior to a procedure. 0761 ($Given - Provider: Radha Healy RN) dextrose [...] Keegan Hatch RN)1102 ($Given - Provider: Radha Haely RN)1620 ($Given - Provider: Paloma Marquez, ZITA)2154 [...] documented as of this encounter Care Teams Tube Former Operator Relationship Specialty [place] [address] [address] [address] PCP - General Family Medicine 05/18/22 Jovany Gonzalez MD [facility] [address] [facility] [address] [place] [address] Orthopedics 02/15/17 Staci Woodward TECHNICAL SUPPORT PROFESSIONAL [place] [address] [place] [address] Nurse Practitioner Nurse Practitioner Psych/Mental Health 05/10/17 Reanna Smith, RD [place] [address] [place] [address] Firmware Test Engineer Dietitian, Registered 07/25/19 Roshni Nascimento, RN Personal Advocate & Liaison (PAL) Family Medicine 08/18/20 Kiet Swain MD [address] [place] [address] [phone] Referring Physician Psychiatry 09/19/20 Winsome Pike APRN WELDING MACHINE OPERATOR [address] [place] [address] [phone] Nurse Practitioner Psychiatry 09/19/20 Tori Hines, [facility] [address] [place] [address] [phone] Machine Tender Machine Tender - Clinical 09/19/20 Miranda Queen [facility] [address] [place] [address] Pharmacist Pharmacist 11/12/20 Marisel Armando MD [address] [place] [address] [phone] Gastroenterology 02/05/21 Marisel Armando MD [address] [place] [address] [phone] Assigned Gastroenterology Provider 03/08/21 12/24/22 Wesley Barrett MD [address] [facility] [address] [place], [place] 347465 Assigned Neuroscience Provider 05/10/21 [place] [address] [place] [address] Assigned PCP 05/15/22 Katiana Read MD [address] [place] [address] 200 [place], [place] 269580 Assigned Endocrinology Provider 06/19/22 [place] [address] [address] 195067 Assigned Behavioral Health Provider 07/03/22 12/31/22 [place] [address] [place] [address] 421967 Nurse Practitioner Nurse Practitioner 10/18/22 Elham Stack, [facility] [address] [facility] [address] Pharmacist Pharmacist 10/19/22 Mary Del Cid, RAFAEL [address] [address] [address] Assigned Pain Medication Provider 10/30/22 12/03/22 Michelle Guzman DPM, Podiatry/Foot and Ankle Surgery [address] [place] [address] Assigned Musculoskeletal Provider 10/16/22 04/08/23 [place] [address] [place] [address] Assigned Pain Medication Provider 12/04/22 04/01/23 documented as of this encounter
--- OUTSIDE RECORDS SUMMARY | 2023-08-03 12:42 | XMS_ITS | Encounter Summary ---
Author Name Unknown Organization [facility] Address [address] [place] [address]. [place] [address] Care Team Providers Care Portable Sawmill Operator Name Role Phone Jovany Gonzalez MD Unavailable CrissyStaci jeong HEAD PORTER Unavailable [phone] Unavailable [phone] Roshni Nascimento RN Unavailable Unavailable Kiet Swain MD Unavailable [phone] Winsome Pike APRN ROTARY ROCK DRILLING MACHINE OPERATOR Unavailable [phone] Tori Hines [facility] Unavailable Miranda Queen [facility] Unavailable Unavailable Marisel Armando MD Unavailable Marisel Armando MD Unavailable Wesley Barrett MD Unavailable [phone] Dyan Fuentes MD Primary Care Provider [phone] Dyan Fuentes MD Unavailable [phone] Katiana Read MD Unavailable [phone] Meme Singleton PhD Unavailable [phone] Mary Del Cid HEAD PORTER Unavailable + [phone] Elham Stack [facility] Unavailable [phone] Mary Del Cid HEAD PORTER Unavailable [phone] Michelle Guzman DPM, Podiatry /Foot and Ankle [...] week 10/16/2021 How often do you attend [facility] or sikhism services? 1 to 4 times per year [...] Answer Date Recorded PHQ-2 Score 2 11/25/2022 [facility] [place] of Occupat ional Health - Occupational Stress [...] st Contact Info) Description 08/18/2023 3:00 PM THRASHER FEEDER Office Visit [place] [address] [place] [address] Katiana Read MD [address] [place] [address] documented as of this encounter Visit Diagnoses Not on filedocumented in this encounter Additional Health Concerns Assessment Noted Time PHQ-9 Depression Total Score: 10 023 8:26 AM CDT documented as of this encounter Care Teams Portable Sawmill Operator Relationship Specialty [place] [address] [place] [address] PCP - General Family Medicine 05/18/22 Jovany Gonzalez MD [facility] [address] [facility] 605 [place] [address] Orthopedics 02/15/17 Staci Woodward, HEAD PORTER [place] [address] [place] [address] Nurse Practitioner Nurse Practitioner Psych/Mental Health 05/10/17 Reanna Smith, RD [place] [address] [place] [address] Machinist Outside Dietitian, Registered 07/25/19 Roshni Nascimento, RN Personal Advocate & Liaison (PAL) Family Medicine 08/18/20 Kiet Swain MD [address] [facility] [address] [place] [address] Referring Physician Psychiatry 09/19/20 Winsome Pike APRN ROTARY ROCK DRILLING MACHINE OPERATOR [address] [place], [place] [phone] Nurse Practitioner Psychiatry 09/19/20 Tori Hines, [facility] [address] [place], [place] [phone] Instrument Setter Instrument Setter - Clinical 09/19/20 Miranda Queen [facility] [address] [place] [address] Pharmacist Pharmacist 11/12/20 Marisel Armando MD [address] [place] [address] [phone] Gastroenterology 02/05/21 Marisel Armando MD [address] [place] [address] [phone] Assigned Gastroenterology Provider 03/08/21 12/24/22 Wesley Barrett MD [address] [place] [address] [phone] Assigned Neuroscience Provider 05/10/21 [place] [address] [place] [address] Assigned PCP 05/15/22 Katiana Read MD [address] [phone] Assigned Endocrinology Provider 06/19/22 [place] [address] [place] [address] Assigned Behavioral Health Provider 07/03/22 12/31/22 Mary Del Cid, RAFAEL [address] [place] [address] Nurse Practitioner Nurse Practitioner 10/18/22 Elham Stack, [facility] [address] [place] [address] Pharmacist Pharmacist 10/19/22 [place] [address] [place] [address] Assigned Pain Medication Provider 10/30/22 12/03/22 Michelle Guzman, DPM, Podiatry/Foot and Ankle Surgery [address] [place] [address] Assigned Musculoskeletal Provider 10/16/22 04/08/23 documented as of this encounter
--- OUTSIDE RECORDS SUMMARY | 2023-08-03 12:42 | XMS_ITS | Encounter Summary ---
Author Name Unknown Organization [facility] Address [address] [place] [address]. [place] [address] Care Team Providers Care Wireless Network Engineer Name Role Phone Jovany Gonzalez MD Unavailable CrissyStaci jeong VOLUNTEER FIREFIGHTER Unavailable [phone] Unavailable [phone] Roshni Nascimento RN Unavailable Unavailable Kiet Swain MD Unavailable [phone] Winsome Pike APRN HIGH RAW SUGAR BOILER Unavailable [phone] Tori Hines [facility] Unavailable Miranda Queen [facility] Unavailable Unavailable Marisel Armando MD Unavailable Marisel Armando MD Unavailable Wesley Barrett MD Unavailable [phone] Dyan Fuentes MD Primary Care Provider [phone] Dyan Fuentes MD Unavailable [phone] Katiana Read MD Unavailable [phone] Meme Singleton PhD Unavailable [phone] Mary Del Cid VOLUNTEER FIREFIGHTER Unavailable + [phone] Elham Stack [facility] Unavailable [phone] Mary Del Cid NP Unavailable [phone] Michelle Guzman DPM, Podiatry /Foot and Ankle Surgery Unavailable Dyan Fuentes MD Unavailable [phone] Mary Del Cid VOLUNTEER FIREFIGHTER Unavailable [phone] Aubrey Jones MD Unavailable + [phone] Blanquita Morales Unavailable Unavailable Aubrey Jones MD Unavailable + [phone] Encounter Details Date Type Department Care Team (Late st Contact Info) Description 11/26/2022 MyC Medical Advice [address] [address] Lynda Oliver, LEAD BURNER Social History Tobacco Use Types Packs/Day Years [...] How often do you attend [facility] or baptist services? 1 to 4 [...] Recorded PHQ-2 Score 2 11/25/2022 [facility] - Occupational Stress Questionnaire Answer [...] No 10/16/2021 Housing Stability Vital Sign Answer Ehnrique e Recorded In the last 12 months, [...] st Contact Info) Description 08/18/2023 3:00 PM WOOL CLEANER Office Visit [facility] [address] [place] [address] Katiana Read MD [address] [facility] [address] [place], [place] [phone] documented as of this encounter Visit Diagnoses Not on filedocumented in this encounter Additional Health Concerns Infection Onset Date Last Indicated Resolved Time C-difficile 10/15/2022 10/27/2022 11/26/2022 11:4 0 PM CDT Rule Out C-difficile 12/05/2022 12/05/2022 023 9:44 AM CDT Assessment Noted Time PHQ-9 Depression Total Score: 10 023 8:26 AM CDT documented as of this encounter Care Teams Wireless Network Engineer Relationship Specialty [place] [address] [place] [address] PCP - General Family Medicine 05/18/22 Jovany Gonzalez MD [facility] [address] [facility] 605 [place] [address] Orthopedics 02/15/17 Staci Woodward, VOLUNTEER FIREFIGHTER [facility] [address] [place] [address] Nurse Practitioner Nurse Practitioner Psych/Mental Health 05/10/17 Reanna Smith, RD [facility] [address] [place] [address] Roll Grinder Dietitian, Registered 07/25/19 Roshni Nascimento, RN Personal Advocate & Liaison (PAL) Family Medicine 08/18/20 Kiet Swain MD [address] [place], [place] [phone] [place], [place] [address] Referring Physician Psychiatry 09/19/20 Winsome Pike APRN HIGH RAW SUGAR BOILER [address] [place] [address] [phone] Nurse Practitioner Psychiatry 09/19/20 Tori Hines, [facility] [address] [place] [address] [phone] Director Of Catering Director Of Catering - Clinical 09/19/20 Miranda Queen [facility] [address] [place] [address] Pharmacist Pharmacist 11/12/20 Marisel Armando MD [address] [place] [address] [phone] Gastroenterology 02/05/21 Marisel Armando MD [address] [place] [address] [phone] Assigned Gastroenterology Provider 03/08/21 12/24/22 Wesley Barrett MD [address] [place] [address] 96 [place], [place] 437785 Assigned Neuroscience Provider 05/10/21 [place] [address] [place] [address] Assigned PCP 05/15/22 Katiana Read MD [address] [place] [address] 200 [place] [address] Assigned Endocrinology Provider 06/19/22 [place] [address] [address] [address] Assigned Behavioral Health Provider 07/03/22 12/31/22 [place] [address] [place] [address] [place] [address] Nurse Practitioner Nurse Practitioner 10/18/22 Elham Stack, [facility] [address] [place] [address] Pharmacist Pharmacist 10/19/22 [place] [address] [place] [address] [place] [address] Assigned Pain Medication Provider 10/30/22 12/03/22 Michelle Guzman DPM, Podiatry/Foot and Ankle Surgery [address] [place] [facility] [place] [address] Assigned Musculoskeletal Provider 10/16/22 04/08/23 [place] [address] [place] [address] Assigned Pain Medication Provider 12/04/22 04/01/23 [place] [address] [place] [address] [address] Nurse Practitioner Nurse Practitioner 01/17/23 01/17/23 Aubrey Jones MD [address] [place] [address] Cardiovascular Disease 03/28/23 Blanquita Morales Roll Grinder Diabetes Education 04/25/23 Aubrey Jones MD [address] [place] [address] Assigned Heart and Vascular Provider 05/07/23 documented as of this encounter
--- OUTSIDE RECORDS SUMMARY | 2023-08-03 12:42 | XMS_ITS | Encounter Summary ---
Author Name Unknown Organization [facility] Address [address] [place] [address]. [place] [address] Care Team Providers Care Chief Librarian Music Department Name Role Phone Jovany Gonzalez MD Unavailable [phone] CrissyStaci jeong ASSISTANT CREDIT MANAGER Unavailable [phone] Unavailable [phone] Roshni Nascimento RN Unavailable Unavailable Kiet Swain MD Unavailable [phone] Winsome Pike APRN FUR GLAZER Unavailable [phone] Tori Hines [facility] Unavailable Miranda Queen [facility] Unavailable Unavailable Marisel Armando MD Unavailable Marisel Armando MD Unavailable Wesley Barrett MD Unavailable [phone] Dyan Fuentes MD Primary Care Provider [phone] Dyan Fuentes MD Unavailable [phone] Katiana Read MD Unavailable [phone] Meme Singleton PhD Unavailable [phone] Mary Del Cid ASSISTANT CREDIT MANAGER Unavailable + [phone] Elham Stack [facility] Unavailable [phone] Mary Del Cid ASSISTANT CREDIT MANAGER Unavailable [phone] Michelle Guzman DPM, Podiatry /Foot and Ankle Surgery Unavailable Reason for Visit * Reason Onset Date Comments Appointment 11/26/2022 Encounter Details Date Type Department Care Team (Late st Contact Info) Description 11/26/2022 Telephone [facility] [address] [place] [address] [place] [address] [place] [address] Appointment Social History Tobacco Use [...] place to sleep or slept in a mcfp (including now)? No 10/16/2021 Education Answer Date [...] st Contact Info) Description 08/18/2023 3:00 PM TRANSFORMER MOLDER Office Visit [facility] [address] [place] [address] Katiana Read MD [address] [place] [address] documented as of this encounter Visit Diagnoses Not on filedocumented in this encounter Additional Health Concerns Infection Onset Date Last Indicated Resolved Time C-difficile 10/15/2022 10/27/2022 11/26/2022 11:4 0 PM CDT Assessment Noted Time PHQ-9 Depression Total Score: 10 023 8:26 AM CDT documented as of this encounter Care Teams Chief Librarian Music Department Relationship Specialty [place] [address] [place] [address] PCP - General Family Medicine 05/18/22 Jovany Gonzalez MD [facility] [address] [facility] [address] [place], [place] [address] Orthopedics 02/15/17 Staci Woodward, ASSISTANT CREDIT MANAGER [place] [address] [place], [place] [address] Nurse Practitioner Nurse Practitioner Psych/Mental Health 05/10/17 Reanna Smith, RD [place] [address] [place], [place] [address] Yard Brakeman Dietitian, Registered 07/25/19 Roshni Nascimento, RN Personal Advocate & Liaison (PAL) Family Medicine 08/18/20 Kiet Swain MD [address] [place], [place] [address] [place], [place] [address] Referring Physician Psychiatry 09/19/20 Winsome Pike APRN FUR GLAZER [address] [place] [address] Nurse Practitioner Psychiatry 09/19/20 Tori Hines, [facility] [place], [place] [address] Virtual Classroom Manager Virtual Classroom Manager - Clinical 09/19/20 Miranda Queen [facility] [address] [place] [address] Pharmacist Pharmacist 11/12/20 Marisel Armando MD [address] [place] [address] Gastroenterology 02/05/21 Marisel Armando MD [address] [place] [address] Assigned Gastroenterology Provider 03/08/21 12/24/22 Wesley Barrett MD [address] [place] [address] Assigned Neuroscience Provider 05/10/21 [place] [address] [place] [address] Assigned PCP 05/15/22 Katiana Read MD [address] [address] Assigned Endocrinology Provider 06/19/22 [place]e Sing[place] [address] [place] [address] Assigned Behavioral Health Provider 07/03/22 12/31/22 [place] [address] [address] [place] [address] Nurse Practitioner Nurse Practitioner 10/18/22 Elham Stack, [facility] [address] [place] [address] Pharmacist Pharmacist 10/19/22 [place] [address] [place] [address] Assigned Pain Medication Provider 10/30/22 12/03/22 Michelle Guzman, ALDOM, Podiatry/Foot and Ankle Surgery [address] [place] [address] Assigned Musculoskeletal Provider 10/16/22 04/08/23 documented as of this encounter
--- OUTSIDE RECORDS SUMMARY | 2023-08-03 12:43 | XMS_ITS | Encounter Summary ---
Author Name Unknown Organization [facility] Address [address] [place] [address]. [place] [address] Care Team Providers Care Patient Safety Sitter Name Role Phone Jovany Gonzalez MD Unavailable CrissyStaci jeong SUPERVISOR EPOXY FABRICATION Unavailable [phone] Unavailable Roshni Nascimento RN Unavailable Unavailable Kiet Swain MD Unavailable [phone] Winsome Pike APRN HATCH SUPERVISOR Unavailable [phone] Tori Hines [facility] Unavailable Miranda Queen [facility] Unavailable Unavailable Marisel Armando MD Unavailable Marisel Armando MD Unavailable Wesley Barrett MD Unavailable [phone] Dyan Fuentes MD Primary Care Provider [phone] Dyan Fuentes MD Unavailable [phone] Katiana Read MD Unavailable [phone] Meme Singleton PhD Unavailable [phone] Mary Del Cid SUPERVISOR EPOXY FABRICATION Unavailable + [phone] Elham Stack [facility] Unavailable [phone] Mary Del Cid SUPERVISOR EPOXY FABRICATION Unavailable [phone] Michelle Guzman DPM, Podiatry /Foot and Ankle [...] often do you attend [facility] or orthodoxy services? 1 to 4 times per year 10/16/2021 Do you belong to any clubs o r organizations such as latter day groups, unions, fraternal or athletic groups, or [...] Answer Date Recorded PHQ-2 Score 2 11/25/2022 [facility] [place] [facility] Occupat ional Health - Occupational Stress [...] st Contact Info) Description 08/18/2023 3:00 PM STEEL GRINDER Office Visit [facility] [address] [place] [address] Katiana Read MD [address] [place] [address] documented as of this encounter Visit Diagnoses Not on filedocumented in this encounter Additional Health Concerns Infection Onset Date Last Indicated Resolved Time C-difficile 10/15/2022 10/27/2022 11/26/2022 11:4 0 PM CDT Assessment Noted Time PHQ-9 Depression Total Score: 10 023 8:26 AM CDT documented as of this encounter Care Teams Patient Safety Sitter Relationship Specialty [place] [address] [place] [address] PCP - General Family Medicine 05/18/22 Jovany Gonzalez MD [facility] [address] [facility] [address] [place], [place] [address] Orthopedics 02/15/17 Staci Woodward SUPERVISOR EPOXY FABRICATION [place] [address] [place] [address] Nurse Practitioner Nurse Practitioner Psych/Mental Health 05/10/17 Reanna Smith, RD [place] [facility] [address] [place] [address] Faith Doctor Dietitian, Registered 07/25/19 Roshni Nascimento, RN Personal Advocate & Liaison (PAL) Family Medicine 08/18/20 Kiet Swain MD [facility] [place] [address] Referring Physician Psychiatry 09/19/20 Winsome Pike APRN HATCH SUPERVISOR [address] 69[address] Nurse Practitioner Psychiatry 09/19/20 Tori Hines, [facility] 24[address] [place], [place] [address] Cork Insulator Helper Cork Insulator Helper - Clinical 09/19/20 Miranda Queen [facility] [address] [place] [address] Pharmacist Pharmacist 11/12/20 Marisel Armando MD 9 [place], [place] [address] Gastroenterology 02/05/21 Marisel Armando MD [address] [place] [address] 993885 Assigned Gastroenterology Provider 03/08/21 12/24/22 Wesley Barrett MD 420 [facility] 96 [place], [place] [address] Assigned Neuroscience Provider 05/10/21 [place] [address] [place] [address] Assigned PCP 05/15/22 Katiana Read MD [address] [address] Assigned Endocrinology Provider 06/19/22 Meme Singleton[place] PhD [address] [facility] [place] [address] Assigned Behavioral Health Provider 07/03/22 12/31/22 Mary Del Cid, RAFAEL [address] [address] Nurse Practitioner Nurse Practitioner 10/18/22 Elham Stack, [facility] [address] [place] [address] Pharmacist Pharmacist 10/19/22 Mary Del Cid, RAFAEL [address] [address] [address] Assigned Pain Medication Provider 10/30/22 12/03/22 Michelle Guzman DPM, Podiatry/Foot and Ankle Surgery [address] [address] Assigned Musculoskeletal Provider 10/16/22 04/08/23 documented as of this encounter
--- OUTSIDE RECORDS SUMMARY | 2023-08-03 12:43 | XMS_ITS | Encounter Summary ---
Author Name Unknown Organization [facility] Address [address] [place] [address]. [place] [address] Care Team Providers Care Sales And Marketing Vice President Name Role Phone Jovany Gonzalez MD Unavailable CrissyStaci jeong PACKAGE LIFT OPERATOR Unavailable [phone] Unavailable Roshni Nascimento RN Unavailable Unavailable Kiet Swain MD Unavailable [phone] Winsome Pike APRN PLAYGROUND SUPERVISOR Unavailable [phone] Tori Hines [facility] Unavailable Miranda Queen [facility] Unavailable Unavailable Marisel Armando MD Unavailable Marisel Armando MD Unavailable Wesley Barrett MD Unavailable [phone] Dyan Fuentes MD Primary Care Provider [phone] Dyan Fuentes MD Unavailable [phone] Katiana Read MD Unavailable [phone] Meme Singleton PhD Unavailable [phone] Mary Del Cid PACKAGE LIFT OPERATOR Unavailable + [phone] Elham Stack [facility] Unavailable [phone] Mary Del Cid PACKAGE LIFT OPERATOR Unavailable [phone] Michelle Guzman DPM, Podiatry /Foot and Ankle Surgery Unavailable Reason for Visit * Reason Comments Pain Encounter Details Date Type Department Care Team (Late st Contact Info) Description 11/11/2022 9:00 AM CDT Office Visit [facility] [place] [address] [place] [address] [address] [place] [address] Mary Del Cid, RAFAEL [address] [place] [address] Chronic pain syndrome (Primary Dx); Encounter for [...] often do you attend chur ch or adventism services? 1 to 4 times per year 10/16/2021 Do you belong to any clubs o r organizations such as hinduism groups, unions, fraternal or athletic groups, or [...] Answer Date Recorded PHQ-2 Score 2 10/25/2022 [facility] - Occupational Stress Questionnaire Answer [...] - 11/11/2022 9:00 AM CDT Clinic Number: [phone] Call with any questions about your care and for scheduling assistance. Calls are returned Tuesday through Tuesday between 8 AM and 4:30 PM. We usually get back to you within 2 business days depending on the issue/request. If we are prescribing your medications: For opioid medication refills, call the clinic or send a GetGifted message 7 days in advance. Please include: Name of requested medication Name of the pharmacy. For non-opioid medications, call your pharmacy directly to request a refill. Please allow 3-4 days to be processed. Per [place] State Law: All controlled substance prescriptions must [...] from the original note were not included. [facility] Date of Visit: 11/11/2022 [...] hematoma with Dr. Mayo on 08/20/2020 at [facility].?? 4. Mental Health - the [...] - She continues visits with therapist at [facility], has found this helpful and [...] QID, daily at her dose Review of [place] Prescription Monitoring Program (CANDY DECORATOR): No concern for abuse or misuse of [...] several years ago -helpful, currently treating with [facility] 4. SURGERY: lumbar laminectomy L4-S1 with Dr. Barrett on 11/10/2021 C5-[address] Barrett on 05/18/2021?? hip replacement with Dr. Mayo on 08/06/2020 and right hip irrigation, debridement, and evacuation of hematoma with Dr. Mayo on 08/20/2020 at [facility] cervical fusion 2003 L5-S1 hemilaminectomy [...] her children's lives. One son lives in [place], others are local. One son (disabled from [employer]) and his live with her. 5 grandchildren, 18 (boy), 16 (girl) and 3 are 5 (twin girls + girl who is three days apart from the twins). For fun, enjoys video games, crossword puzzles, being on 1calendar. Last updated 11/11/2022 Medications and Allergies reviewed. [...] PT refresher course, okay to check with patient account representative first. - buprenorphine HCl-naloxone HCl (SUBOXONE) [...] - naloxone (NARCAN) 4 MG/0.1ML nasal spray; Fifty Six 1 spray (4 mg) into one nostril alternating nostrils once as needed for opioid reversal Dispense: 0.2 mL; Refill: 0 4. Muscle spasm Continue, refilled. - methocarbamol (ROBAXIN) 500 MG tablet; Take 2 tablets (1,000 mg) by mouth 4 times daily Dispense:150 tablet; Refill: 2 Mary Del Cid, PLAYGROUND SUPERVISOR-BC, PMGT-BC, AP-PMN [facility] documented in this encounter Nursing Notes * Leeann Echevarria MA - 11/11/2022 9:00 AM CDT 04/13/2022 1:54 PM 07/15/2022 2:00 PM 11/11/2022 9:04 AM PEG Score PEG Total Score 7.33 6 7.33 Leeann Echevarria MA M [facility] * Leeann Echevarria MA - 11/11/2022 9:00 AM CDT Reviewed controlled substance agreement with patient and the patient stated understanding. Patient signed agreement and a copy was given to the patient. Leeann Echevarria MA [facility] documented in this encounter Plan of Treatment Upcoming Encounters Date Type Department Care Team (Late st Contact Info) Description 08/18/2023 3:00 PM PROCESS CONTROL TECH Office Visit [facility] [address] [place] [address] Katiana Read MD [address] [place] [address] documented as of this encounter Results * Drug Screen 9, Ser/Jaime w/ Rflx to Conf (11/25/2022 3:39 PM CDT) [facility] Amphetamines Qual Negative Cutoff 20 ng/mL 11/27/2022 [...] Cutoff 20 ng/mL 11/27/2022 6:47 PM CDT [facility] Drug Screen Comments, Serum or Plasma See Note 11/27/2022 6:47 PM CDT [facility] Comment: INTERPRETIVE INFORMATION: Drug Screen 9 Panel, [...] developed and its performance characteristics determined by [facility]. It has not been cleared or approved by the US Food and Drug Administration. This test was performed in a CLIA certified laboratory and is intended for clinical purposes. Performed By: [facility] [address] [place] [id number] Corn Breeder: [place] MD, PhD Cannabinoids Qual Positive Cutoff 20 ng/mL 11/27/2022 6:47 PM T [facility] Comment: If the screen is positive, then confirmation by mass spectrometry will be added. Additional charges will apply. Unconfirmed positive may be useful for medical purposes, but does not meet forensic standards. Blood BLOOD SPECIMEN / Unknown Venipuncture / Unknown 11/25/2022 3:39 PM CDT 11/25/2022 3:39 PM CDT Mary Del Cid PACKAGE LIFT OPERATOR LAB - BLOOD MICHEALJocelyn RAMON[facility] [address] [place] [address], [facility] [phone] documented in this encounter Visit Diagnoses Diagnosis [...] of this encounter Care Teams Sales And Marketing Vice President Relationship Specialty [place] [address] [place] [address] PCP - General Family Medicine 05/18/22 Jovany Gonzalez MD [facility] 66[address] [facility] 605 [place], [place] [address] Orthopedics 02/15/17 Staci Woodward NP [place] [address] [place], [place] [address] Nurse Practitioner Nurse Practitioner Psych/Mental Health 05/10/17 Reanna Smith, [facility] [address] [place], [place] [address] Picking Tech Dietitian, Registered 07/25/19 Roshni Nascimento RN Personal Advocate & Liaison (PAL) Family Medicine 08/18/20 Kiet Swain MD 2450 [facility] NG[address] [place] [address] Referring Physician Psychiatry 09/19/20 Winsome Pike APRN CNP [address] [place] [address] Nurse Practitioner Psychiatry 09/19/20 Tori Hines, [facility] 2450 [place] [address] Engine Cowling Installer Engine Cowling Installer - Clinical 09/19/20 Miranda Queen [facility] [address] [place] [address] Pharmacist Pharmacist 11/12/20 Marisel Armando MD [address] [place] [address] Gastroenterology 02/05/21 Marisel Armando MD [address] [place] [address] 172585 Assigned Gastroenterology Provider 03/08/21 12/24/22 Wesley Barrett MD [address] [place] [address] 96 [place], [place] [address] Assigned Neuroscience Provider 05/10/21 [place] [address] [place] [address] Assigned PCP 05/15/22 Katiana Read MD [address] [place] [address] Assigned Endocrinology Provider 06/19/22 [place] [address] [place] [address] Assigned Behavioral Health Provider 07/03/22 12/31/22 Mary Del Cid, RAFA[place] [address] [place] [address] Nurse Practitioner Nurse Practitioner 10/18/22 Elham Stack, [facility] [address] [place] [address] Pharmacist Pharmacist 10/19/22 Mary Del Cid, RAFAEL [address] [place] [address] Assigned Pain Medication Provider 10/30/22 12/03/22 Michelle Guzman DPM, Podiatry/Foot and Ankle Surgery [address] [facility] [place] [address] Assigned Musculoskeletal Provider 10/16/22 04/08/23 documented as of this encounter
--- OUTSIDE RECORDS SUMMARY | 2023-08-03 12:43 | XMS_ITS | Encounter Summary ---
Author Name Unknown Organization [facility] Address [address] [place] [address]. [place] [address] Care Team Providers Care Trust Advisor Name Role Phone Jovany Gonzalez MD Unavailable CrissyStaci jeong CELL MANAGER Unavailable [phone] Unavailable [phone] Roshni Nascimento RN Unavailable Unavailable Kiet Swain MD Unavailable [phone] Winsome Pike APRN SENIOR BUSINESS BROKER Unavailable [phone] Tori Hines [facility] Unavailable Miranda Queen [facility] Unavailable Unavailable Marisel Armando MD Unavailable Marisel Armando MD Unavailable Wesley Barrett MD Unavailable [phone] Dyan Fuentes MD Primary Care Provider [phone] Dyan Fuentes MD Unavailable [phone] Katiana Read MD Unavailable [phone] Meme Singleton PhD Unavailable [phone] Mary Del Cid CELL MANAGER Unavailable + [phone] Elham Stack [facility] Unavailable [phone] Mary Del Cid NP Unavailable [phone] Michelle Guzman DPM, Podiatry /Foot and Ankle Surgery Unavailable Dyan Fuentes MD Unavailable [phone] Mary Del Cid CELL MANAGER Unavailable [phone] Aubrey Jones MD Unavailable [phone] Blanquita Morales Unavailable Unavailable Aubrey Jones MD Unavailable [phone] Encounter Details Date Type Department Care Team (Late st Contact Info) Description 11/04/2022 [facility] Medical Advice [address] [address] Roshni Nascimento RN Social History [...] week 10/16/2021 How often do you attend [facility] or cheondoism services? 1 to 4 [...] Answer Date Recorded PHQ-2 Score 2 10/25/2022 [facility] - Occupational Stress Questionnaire Answer [...] st Contact Info) Description 08/18/2023 3:00 PM BRANDING SPECIALIST Office Visit [facility] [address] [place] [address] Katiana Read MD [address] [facility] 200 [place], [place] [address] documented as of this encounter Visit Diagnoses Not on filedocumented in this encounter Additional Health Concerns Infection Onset Date Last Indicated Resolved Time C-difficile 10/15/2022 10/27/2022 11/26/2022 11:4 0 PM CDT Rule Out C-difficile 12/05/2022 12/05/2022 023 9:44 AM CDT Assessment Noted Time PHQ-9 Depression Total Score: 10 023 2:06 PM CDT documented as of this encounter Care Teams Trust Advisor Relationship Specialty [place] [address] [place] [address] PCP - General Family Medicine 05/18/22 Jovany Gonzalez MD [facility] 6600 [facility] 605 [place] [address] Orthopedics 02/15/17 Staci Woodward CELL MANAGER [facility] [address] [place] [address] Nurse Practitioner Nurse Practitioner Psych/Mental Health 05/10/[address] [facility] [address] [place] [address] Director Digital Advertising Dietitian, Registered 07/25/19 Roshni Nascimento, RN Personal Advocate & Liaison (PAL) Family Medicine 08/18/20 Kiet Swain MD [address] [place], [place] [address] [place], [place] [address] Referring Physician Psychiatry 09/19/20 Winsome Pike APRN SENIOR BUSINESS BROKER [address] [place] [address] [id number] Nurse Practitioner Psychiatry 09/19/20 Tori Hines [facility] [address] [place] [address] Key Worker Key Worker - Clinical 09/19/20 Miranda Queen [facility] [address] [place] [address] Pharmacist Pharmacist 11/12/20 Marisel Armando MD [address] [place] [address]64[address] Gastroenterology 02/05/21 Marisel Armando MD [address] [place] [address] 033515 Assigned Gastroenterology Provider 03/08/21 12/24/22 Wesley Barrett MD [address] [place] [address] 96 [place], [place] [id number] Assigned Neuroscience Provider 05/10/21 [place] [address] [place] [address] Assigned PCP 05/15/22 Katiana Read MD [address] [place] [address] 200 [place], [place] [address] Assigned Endocrinology Provider 06/19/22 [place] [address] [address] [address] Assigned Behavioral Health Provider 07/03/22 12/31/22 Mary Del Cid, RAFAEL [address] [address] [address] Nurse Practitioner Nurse Practitioner 10/18/22 Elham Stack, [facility] [address] [place] [address] Pharmacist Pharmacist 10/19/22 Mary Del Cid, RAFAEL [address] [address] [address] Assigned Pain Medication Provider 10/30/22 12/03/22 Michelle Guzman DPM, Podiatry/Foot and Ankle Surgery [address] [facility] [place] [address] Assigned Musculoskeletal Provider 10/16/22 04/08/23 [place] [address] [place] [address] Assigned Pain Medication Provider 12/04/22 04/01/23 [place] [address] [address] [address] Nurse Practitioner Nurse Practitioner 01/17/23 01/17/23 Aubrey Jones MD [address] [place] [address] Cardiovascular Disease 03/28/23 Blanquita Morales Director Digital Advertising Diabetes Education 04/25/23 Aubrey Jones MD [address] [place] [address] Assigned Heart and Vascular Provider 05/07/23 documented as of this encounter
--- OUTSIDE RECORDS SUMMARY | 2023-08-03 12:43 | XMS_ITS | Encounter Summary ---
Author Name Unknown Organization [facility] Address [address] [place] [address]. [place] [address] Care Team Providers Care Paper Machine Supervisor Name Role Phone Jovany Gonzalez MD Unavailable CrissyStaci jeong LABORER COOK HOUSE Unavailable [phone] Unavailable Roshni Nascimento RN Unavailable Unavailable Kiet Swain MD Unavailable [phone] Winsome Pike APRN [employer] Unavailable [phone] Tori Hines [facility] Unavailable Miranda Queen [facility] Unavailable Unavailable Marisel Armando MD Unavailable Marisel Armando MD Unavailable Wesley Barrett MD Unavailable [phone] Dyan Fuentes MD Primary Care Provider [phone] Dyan Fuentes MD Unavailable [phone] Katiana Read MD Unavailable [phone] Meme Singleton PhD Unavailable [phone] Mary Del Cid LABORER COOK HOUSE Unavailable [phone] Elham Stack [facility] Unavailable [phone] Emerita Potter WILDLIFE POLICY PROFESSIONAL Unavailable Mary Del Cid NP Unavailable [phone] Michelle Guzman DPM, Podiatry /Foot and Ankle Surgery Unavailable Reason for Visit * Reason Onset Date Comments Outreach 11/02/2022 PAL IP follow up Encounter Details Date Type Department Care Team (Late st Contact Info) Description 11/02/[address] [facility] [address] [place] [address] [place] [address] [place] [address] Outreach (PAL IP follow up [...] How often do you attend chur or protestant services? 1 to 4 times [...] Answer Date Recorded PHQ-2 Score 2 10/25/2022 [facility] - Occupational Stress [...] st Contact Info) Description 08/18/2023 3:00 PM SKI PATROL DIRECTOR Office Visit [facility] [address] [place] [address] Katiana Read MD [address] [place] [address] documented as of this encounter Visit Diagnoses Not on filedocumented in this encounter Additional Health Concerns Infection Onset Date Last Indicated Resolved Time C-difficile 10/15/2022 10/27/2022 11/26/2022 11:4 0 PM CDT Assessment Noted Time PHQ-9 Depression Total Score: 10 10/25/ 023 2:06 PM CDT documented as of this encounter Care Teams Paper Machine Supervisor Relationship Specialty [place] [address] [place] [address] PCP - General Family Medicine 05/18/22 Jovany Gonzalez MD [facility] [address] [facility] [address] [place] [address] Orthopedics 02/15/17 Staci Woodward, LABORER COOK HOUSE [place] [address] [place], [place] [address] Nurse Practitioner Nurse Practitioner Psych/Mental Health 05/10/17 Reanna Smith, RD [place] [address] [place], [place] [address] Play Writer Dietitian, Registered 07/25/19 Roshni Nascimento, RN Personal Advocate & Liaison (PAL) Family Medicine 08/18/20 Kiet Swain MD [address] [facility] [address] [place], [place] [address] Referring Physician Psychiatry 09/19/20 Winsome Pike APRN BEFORE SCHOOL [address] [place], [place] [address] Nurse Practitioner Psychiatry 09/19/20 Tori Hines, [facility] [address] [place], [place] [address] Lead Janitor Lead Janitor - Clinical 09/19/20 RichardcoriMiranda scott [facility] [address] [place] [address] Pharmacist Pharmacist 11/12/20 Marisel Armando MD [address] [place] [address] Gastroenterology 02/05/21 Marisel Armando MD [address] [place] [address] Assigned Gastroenterology Provider 03/08/21 12/24/22 Wesley Barrett MD [address] [place] [address] 96 [place] [address] Assigned Neuroscience Provider 05/10/21 [place] [address] [place] [address] Assigned PCP 05/15/22 Katiana Read MD [address] [address] Assigned Endocrinology Provider 06/19/22 Meme Singleton, PhD [address] [facility] [place] [address] Assigned Behavioral Health Provider 07/03/22 12/31/22 Mary Del Cid, RAFA[place] [address] 0[address]67 Nurse Practitioner Nurse Practitioner 10/18/22 Elham Stack, [facility] [address] [facility] [place] [address] Pharmacist Pharmacist 10/19/22 Emerita Potter, [facility] Clinic First Press Operator Lead Janitor - Clinical 10/29/22 11/02/22 [place] [address] [place] [place] [address] Assigned Pain Medication Provider 10/30/22 12/03/22 Michelle Guzman, DPM, Podiatry/Foot and Ankle Surgery [address] [id number] Assigned Musculoskeletal Provider 10/16/22 04/08/23 documented as of this encounter
--- OUTSIDE RECORDS SUMMARY | 2023-08-03 12:43 | XMS_ITS | Encounter Summary ---
Author Name Unknown Organization [facility] Address [address] [place] [address]. [place] [address] Care Team Providers Care Trim Crew Supervisor Name Role Phone Jovany Gonzalez MD Unavailable CrissyStaci jeong NP Unavailable Reanna Smith RD Unavailable [phone] Roshni Nascimento RN Unavailable Unavailable Kiet Swain MD Unavailable [phone] Winsome Pike APRN CEMENT DESPATCH OPERATOR Unavailable [phone] Tori HinesSW Unavailable Miranda Queen [facility] Unavailable Unavailable Marisel Armando MD Unavailable Marisel Armando MD Unavailable Wesley Barrett MD Unavailable [phone] Dyan Fuentes MD Primary Care Provider [phone] Dyan Fuentes MD Unavailable [phone] Katiana Read MD Unavailable [phone] Meme Singleton PhD Unavailable [phone] Deena Garza LABORER/KEY MAN CEMENT DESPATCH OPERATOR Unavailable [phone] Maurice Cee DOCK SUPERINTENDENT Unavailable Elham Stack [facility] Unavailable Emerita Potter Alisha [facility] Unavailable [phone] Michelle Guzman DPM, Podiatry /Foot and Ankle Surgery Unavailable Reason for Visit * Reason Onset Date Comments Opioid Refill 10/28/2022 buprenorphine HC l-naloxone HCl (SUBOXONE) 2-0.5 MG per film Encounter Details Date Type Department Care Team (Late st Contact Info) Description 10/28/2022 Telephone [facility] [place] [address] [facility] [address] [place], [place] [id number] [place] [address] [place] [place] [id number] Opioid Refill (buprenorphine HCl-naloxone HCl (SUBOXONE) 2-0.5 [...] often do you attend chur ch or quaker services? 1 to 4 times [...] Answer Date Recorded PHQ-2 Score 2 10/25/2022 [facility] - Occupational Stress Questionnaire Answer [...] 10/29/2022 10:58 AM CDT Left message on [employer] . Rx was E-Prepcribed to the pharmacy. [...] does not show, thank you for confirming scrap picker with the pharmacy. Will send this [...] of opioid agreement: 12/17/21- Greg E-prescribe to [facility] [place], [place] - [address] [facility] [place] [place] [address] Will route to nursing sumerco for review and preparation of prescription(s). MICHELLE King [facility] * Telephone Encounter - Janine Argueta RN - 10/28/2022 2:10 PM CDT Will route to MICHELLE armenta for assistance with gathering opioid refill information. Janine Raymundo RN Warehouse Assembly Worker [facility] * Telephone Encounter - Misty Monroy - 10/28/2022 1:55 PM CDT [facility] Phone Message May a detailed message be left on voicemail: yes Reason for Call: Medication Refill Request Has the patient contacted the pharmacy for the refill? Yes Name of medication being requested: buprenorphine HCl-naloxone HCl (SUBOXONE) 2- 0.5 MG per film Provider who prescribed the medication: Maurice Cee NP Pharmacy: [facility] - [address] Date medication is needed:11/01/2022 Action Taken: Message routed to: Other: [facility] Pain Travel Screening: Not Applicable documented in this encounter Plan of Treatment Upcoming Encounters Date Type Department Care Team (Late st Contact Info) Description 08/18/2023 3:00 PM COIN MACHINE COLLECTOR SUPERVISOR Office Visit [facility] [address] [place] [address] Katiana Read MD [address] [place] [address] documented as of this encounter Visit Diagnoses Diagnosis Chronic pain syndrome documented in this encounter Additional Health Concerns Infection Onset Date Last Indicated Resolved Time C-difficile 10/15/2022 10/27/2022 11/26/2022 11:4 0 PM CDT Rule Out C-difficile 10/26/2022 10/27/2022 023 2:14 AM CDT Assessment Noted Time PHQ-9 Depression Total Score: 10 023 2:06 PM CDT documented as of this encounter Care Teams Trim Crew Supervisor Relationship Specialty [place] [address] [place] [address] PCP - General Family Medicine 05/18/22 Jovany Gonzalez MD [facility] [address] [facility] [address] [place], [place] [address] Orthopedics 02/15/17 Staci Woodward, DOCK SUPERINTENDENT [place] [address] [place], [place] [address] Nurse Practitioner Nurse Practitioner Psych/Mental Health 05/10/17 Reanna Smith, RD [facility] [address] [place], [place] [address] Excavating Machine Operator Dietitian, Registered 07/25/19 Roshni Nascimento, RN Personal Advocate & Liaison (PAL) Family Medicine 08/18/20 Kiet Swain MD [address] [place], [place] [address] [place], [place] [address] Referring Physician Psychiatry 09/19/20 Winsome Pike APRN CEMENT DESPATCH OPERATOR [address] [place] [address] Nurse Practitioner Psychiatry 09/19/20 Tori Hines, [facility] [address] [place] [address] Cement Conveyor Operator Cement Conveyor Operator - Clinical 09/19/20 Richardfeiena Miranda, [facility] [address] [place] [address] Pharmacist Pharmacist 11/12/20 Marisel Armando MD [address] [place] [address] Gastroenterology 02/05/21 Marisel Armando MD [address] [place] [address] Assigned Gastroenterology Provider 03/08/21 12/24/22 Wesley Barrett MD [address] [place] [address] Assigned Neuroscience Provider 05/10/21 [place] [address] [place] [address] Assigned PCP 05/15/22 Katiana Read MD [address] [place] [address] Assigned Endocrinology Provider 06/19/22 [place]e [place] [address] [place] [address] Assigned Behavioral Health Provider 07/03/22 12/31/22 Deena Garza, LABORER/KEY MAN CEMENT DESPATCH OPERATOR [address] [place] [address] Assigned Pain Medication Provider 07/19/22 10/29/22 Maurice Cee, RAFA[place] [address] [place] [id number] Nurse Practitioner Nurse Practitioner 10/18/22 Elham Stack, [facility] [address] [place] [address] Pharmacist Pharmacist 10/19/22 Emerita Potter, [facility] Clinic Warehouse Assembly Worker Cement Conveyor Operator - Clinical 10/29/22 11/02/22 Michelle Guzman, ERIC, Podiatry/Foot and Ankle Surgery [address] [place] [address] Assigned Musculoskeletal Provider 10/16/22 04/08/23 documented as of this encounter
--- OUTSIDE RECORDS SUMMARY | 2023-08-03 12:43 | XMS_ITS | Encounter Summary ---
Author Name Unknown Organization [facility] Address [address] [place] [address]. [place] [address] Care Team Providers Care Bindery Machine Setter/Set Up Operator Name Role Phone Jovany Gonzalez MD Unavailable CrissyStaci jeong CONFIGURATION ENGINEER Unavailable [phone] Unavailable [phone] Roshni Nascimento RN Unavailable Unavailable Kiet Swain MD Unavailable [phone] Winsome Pike APRN SEROLOGY TEACHER Unavailable [phone] Tori Hines [facility] Unavailable Miranda Queen [facility] Unavailable Unavailable Marisel Armando MD Unavailable Marisel Armando MD Unavailable Wesley Barrett MD Unavailable [phone] Dyan Fuentes MD Primary Care Provider [phone] Dyan Fuentes MD Unavailable [phone] Katiana Read MD Unavailable [phone] Meme Singleton PhD Unavailable [phone] Mary Del Cid CONFIGURATION ENGINEER Unavailable [phone] Elham Stack [facility] Unavailable [phone] Mary Del Cid CONFIGURATION ENGINEER Unavailable [phone] Michelle Guzman DPM, Podiatry /Foot and Ankle Surgery Unavailable Reason for Visit * Reason Onset Date Comments Panel Management 11/26/2022 Depression francia ssion Encounter Details Date Type Department Care Team (Late st Contact Info) Description 11/26/2022 Telephone [facility] [address] [place] [address] [place] [address] [place] [address] Panel Management (Depression remission) Social [...] PHQ-2 Score 2 11/25/2022 [employer] [facility] - Occupational Stress Questionnaire Answer [...] to do PHQ9. Type of outreach: Sent [employer] message. Lynda Oliver/PATRICK [facility]---[facility] documented in this encounter Plan of Treatment Upcoming Encounters Date Type Department Care Team (Late st Contact Info) Description 08/18/2023 3:00 PM MACHINIST HELPER MARINE Office Visit [facility] [address] [place] [address] Katiana Read MD [address] [place] [address] documented as of this encounter Visit Diagnoses Not on filedocumented in this encounter Additional Health Concerns Infection Onset Date Last Indicated Resolved Time C-difficile 10/15/2022 10/27/2022 11/26/2022 11:4 0 PM CDT Assessment Noted Time PHQ-9 Depression Total Score: 10 023 8:26 AM CDT documented as of this encounter Care Teams Bindery Machine Setter/Set Up Operator Relationship Specialty [place] [address] [place] [address] PCP - General Family Medicine 05/18/22 Jovany Gonzalez MD [facility] [address] [facility] [facility] [address] [place], [place] [address] Orthopedics 02/15/17 Staci Woodward, CONFIGURATION ENGINEER [place] [address] [place], [place] [phone] Nurse Practitioner Nurse Practitioner Psych/Mental Health 05/10/17 Reanna Smith, RD [place] [address] [place], [place] [address] Child Life Therapist Dietitian, Registered 07/25/19 Roshni Nascimento, RN Personal Advocate & Liaison (PAL) Family Medicine 08/18/20 Kiet Swain MD [address] [place] [address]214 Referring Physician Psychiatry 09/19/20 Winsome Pike APRN SEROLOGY TEACHER [address] [place] [address] 157624 Nurse Practitioner Psychiatry 09/19/20 Tori Hines, [facility] [address] [place] [address] [phone] Irrigation Tax Assessor Collector Irrigation Tax Assessor Collector - Clinical 09/19/20 Miranda Queen [facility] [address] [place] [address] Pharmacist Pharmacist 11/12/20 Marisel Armando MD [address] [place], [place] [address] Gastroenterology 02/05/21 Marisel Armando MD [address] [place] [address] Assigned Gastroenterology Provider 03/08/21 12/24/22 Wesley Barrett MD [address] [facility] 96 [place] [address] Assigned Neuroscience Provider 05/10/21 [place] [address] [place] [address] Assigned PCP 05/15/22 Katiana Read MD [address] [place], [place] [address] Assigned Endocrinology Provider 06/19/22 Meme Singleton[place] PhD [address] [place] 15[address]47 Assigned Behavioral Health Provider 07/03/22 12/31/22 Mary Del Cid, [place] [address] [place] [address] Nurse Practitioner Nurse Practitioner 10/18/22 Elham Stack, [facility] [address] [place] [address] Pharmacist Pharmacist 10/19/22 Mary Del Cid, [place] [address] [place] [address] Assigned Pain Medication Provider 10/30/22 12/03/22 Michelle Guzman DPM, Podiatry/Foot and Ankle Surgery [address] [address] Assigned Musculoskeletal Provider 10/16/22 04/08/23 documented as of this encounter
--- OUTSIDE RECORDS SUMMARY | 2023-08-03 12:43 | XMS_ITS | Encounter Summary ---
Author Name Unknown Organization [facility] Address [address] [place] [address]. [place] [address] Care Team Providers Care Creel Clerk Name Role Phone Jovany Gonzalez MD Unavailable CrissyStaci jeong NP Unavailable [phone] Unavailable [phone] Roshni Nascimento RN Unavailable Unavailable Kiet Swain MD Unavailable [phone] Winsome Pike APRN CLIENT COORDINATOR Unavailable [phone] Tori HinesSW Unavailable Miranda Queen [facility] Unavailable Unavailable Marisel Armando MD Unavailable Marisel Armando MD Unavailable Wesley Barrett MD Unavailable [phone] Dyan Fuentes MD Primary Care Provider [phone] Dyan Fuentes MD Unavailable [phone] Katiana Read MD Unavailable [phone] Meme Singleton PhD Unavailable [phone] Deena Garza SOFTWARE SALES CLIENT COORDINATOR Unavailable [phone] MAGISTRATE Unavailable Elham Stack [facility] Unavailable [phone] ThomasMichelle DPM, Podiatry /Foot and Ankle Surgery Unavailable Reason for Visit * Auth/Cert (Routine) Specialty Diagnoses / Procedures Referred By Jose R kelly Referred To Contact Med Surg Diagnoses Dehydration Nausea and vomiting, unspecified vomiting type Nausea and vomiting, unspecified vomiting type Observation Dept [address] [place] [address] Referral ID Status Reason Start Date Expiration Date Visits Re quested Visits Authorized [id number] 1 1 Encounter Details Date Type Department Care Team (Late st Contact Info) Description 10/28/2022 11:32 AM CDT Anesthesia Event [facility] [address] [place] [address] Douglas Lechuga MD [facility] ANESTHESIA [address] [place] [address] Lenka Fan APRN GAME ARTIST [address] [place] [address] Anesthesia Record Procedure Summary Procedure Name Responsible Anesthesiologist Anesthesia Start Time Anesthesia Stop Time COLONOSCOPY with biopsies (Rectum) Douglas Lechuga MD 10/28/22 1132 10/28/22 1206 Events Date Time Event Comment 10/28/2022 1110 GAME ARTIST Ready for Procedure 1132 An Start 1132 MD Present 1134 An Start Data 1134 AN REASSESS I attest that I have identified and re-evaluated the patient immediately before the induction of anesthesia and I am satisfied that the anesthetic plan is suitable for the patient's condition and procedure. The first vital signs recorded are pre- induction. Lenka Fan APRN GAME ARTIST 1134 Anesthesia Ready for Procedu re 1203 [...] week 10/16/2021 How often do you attend [facility] or [facility]ist services? 1 to 4 [...] Answer Date Recorded PHQ-2 Score 2 10/25/2022 [facility] - Occupational Stress Questionnaire Answer [...] ANKLE ARTHROSCOPY; Surgeon: Jovany Gonzalez MD; Location: [facility];Service: ??? BACK SURGERY Lumbar and cervical ??? [...] 4 to Sacral 1 with Foraminotomy; Surgeon: Weslye Barrett MD; Location: [facility] OR ??? LAPAROSCOPIC CHOLECYSTECTOMY 2011 ??? OPEN REDUCTION INTERNAL FIXATION FIBULA Right 02/08/2017 ??? OTHER SURGICAL HISTORY INSERT PUMP MORPHINEand removal ??? RECONSTRUCT ANKLE Right 12/13/2017 Procedure: LATERAL LIGAMENT AND CALCANEAL CUBOID LIGAMENT RECONSTRUCTION, DYNAMIZE AND BONE GRAFT FIBULAR FRACTURE; Surgeon: Jovany Gonzalez MD; Location: [facility]; Service: ??? rectocele and cystocel repairs ??? REMOVE HARDWARE LOWER EXTREMITY Right 12/13/2017 Procedure: REMOVAL OF SYNDESMOSIS SCREWS, SUHAS; Surgeon: Jovany Gonzalez MD; Location: [facility] OR; Service: ??? REPAIR RECTOCELE ??? TONSILLECTOMY [...] and realistic alternatives discussed. Questions answered and patient/enrollment eligibility representative(s) expressed understanding. - Discussed: - Discussed [...] st Contact Info) Description 08/18/2023 3:00 PM LIVESTOCK YARD SUPERVISOR Office Visit [facility] [address] [place] [address] Katiana Read MD [address] [place] [address] documented as of this encounter Visit Diagnoses [...] documented as of this encounter Care Teams Creel Clerk Relationship Specialty [place] [address] [place] [address] PCP - General Family Medicine 05/18/22 Jovany Gonzalez MD [facility] [address] [facility] [address] [place], [place] [address] Orthopedics 02/15/17 Staci Woodward NP [place] [address] [place] [address] Nurse Practitioner Nurse Practitioner Psych/Mental Health 05/10/17 Reanna Smith, RD [facility] [address] [place] [address] Frame Nailer Dietitian, Registered 07/25/19 Roshni Nascimento, RN Personal Advocate & Liaison (PAL) Family Medicine 08/18/20 Kiet Swain MD [address] [place] [address] [address] [place], [place] [address] Referring Physician Psychiatry 09/19/20 Winsome Pike APRN CLIENT COORDINATOR [facility] [address] [address] Nurse Practitioner Psychiatry 09/19/20 Tori Hines, [facility] [address] [place] [address] [phone] Neonatal Nurse Neonatal Nurse - Clinical 09/19/20 Miranda Queen [facility] [address] [place] [address] Pharmacist Pharmacist 11/12/20 Marisel Armando MD [address] [place] [address] 838055 Gastroenterology 02/05/21 Marisel Armando MD [address] [place] [address] 849795 Assigned Gastroenterology Provider 03/08/21 12/24/22 Wesley Barrett MD [address] [place] [address] 96 [place], [place] [address] Assigned Neuroscience Provider 05/10/21 [place] [address] [place] [address] Assigned PCP 05/15/22 Katiana Read MD [address] [facility] 200 [place] [address] Assigned Endocrinology Provider 06/19/22 Meme [place] [address] [place] [address] Assigned Behavioral Health Provider 07/03/22 12/31/22 Deena Garza APRN CLIENT COORDINATOR [address] [place] [address] Assigned Pain Medication Provider 07/19/22 10/29/22 Mary Del Cid, [place] [address] [place] [address] Nurse Practitioner Nurse Practitioner 10/18/22 Elham Stack, [facility] [address] [place] [address] Pharmacist Pharmacist 10/19/22 Michelle Guzman, DPM, Podiatry/Foot and Ankle Surgery [address] [place] [address] Assigned Musculoskeletal Provider 10/16/22 04/08/23 documented as of this encounter
--- OUTSIDE RECORDS SUMMARY | 2023-08-03 12:43 | XMS_ITS | Encounter Summary ---
Author Name Unknown Organization [facility] Address [address] [place] [address]. [place] [address] Care Team Providers Care Advisor Advocate Angel Co Founder Name Role Phone Jovany Gonzalez MD Unavailable [phone] CrissyStaci jeong SET UP TECHNICIAN Unavailable [phone] Unavailable Roshni Nascimento RN Unavailable Unavailable Kiet Swain MD Unavailable [phone] Winsome Pike APRN IN HOME BABY SITTER Unavailable [phone] Tori Hines [facility] Unavailable Miranda Queen [facility] Unavailable Unavailable Marisel Armando MD Unavailable Marisel Armando MD Unavailable Wesley Barrett MD Unavailable [phone] Dyan Fuentes MD Primary Care Provider [phone] Dyan Fuentes MD Unavailable [phone] Katiana Read MD Unavailable [phone] Meme Singleton PhD Unavailable [phone] Mary Del Cid SET UP TECHNICIAN Unavailable + [phone] Elham Stack [facility] Unavailable [phone] Mary Del Cid SET UP TECHNICIAN Unavailable Michelle Guzman DPM, Podiatry /Foot and [...] do you attend [facility] or latter-day services? 1 to 4 times per year [...] Answer Date Recorded PHQ-2 Score 2 10/25/2022 [facility] [place] [facility] Occupat ional Health - Occupational Stress [...] st Contact Info) Description 08/18/2023 3:00 PM VAULT MANAGER Office Visit [facility] [address] [place] [address] Katiana Read MD [address] [place] [address] documented as of this encounter Visit Diagnoses Not on filedocumented in this encounter Additional Health Concerns Infection Onset Date Last Indicated Resolved Time C-difficile 10/15/2022 10/27/2022 11/26/2022 11:4 0 PM CDT Assessment Noted Time PHQ-9 Depression Total Score: 10 023 2:06 PM CDT documented as of this encounter Care Teams Advisor Advocate Angel Co Founder Relationship Specialty [place] [address] [place] [address] PCP - General Family Medicine 05/18/22 Jovany Gonzalez MD [facility] [address] [facility] [address] [place], [place] [address] Orthopedics 02/15/17 Staci Woodward SET UP TECHNICIAN [place] [address] [place] [address] Nurse Practitioner Nurse Practitioner Psych/Mental Health 05/10/17 Reanna Smith, RD [place] [address] [place] [address] Machine Washer Dietitian, Registered 07/25/19 Roshni Nascimento, RN Personal Advocate & Liaison (PAL) Family Medicine 08/18/20 Kiet Swain MD [facility]0 [facility]15 [place] [address] Referring Physician Psychiatry 09/19/20 Winsome Pike APRN IN HOME BABY SITTER [address] [address] Nurse Practitioner Psychiatry 09/19/20 Tori Hines, [facility] [address] [place], [place] [address] Sheetfed Press Operator Sheetfed Press Operator - Clinical 09/19/20 Miranda Queen [facility] [address] [place] [address] Pharmacist Pharmacist 11/12/20 Marisel Armando MD 9 [place], [place] [address] Gastroenterology 02/05/21 Marisel Armando MD [address] [place] [address] [id number] Assigned Gastroenterology Provider 03/08/21 12/24/22 Wesley Barrett MD [address] [facility] 96 [place], [place] [address] Assigned Neuroscience Provider 05/10/21 [place] [address] [place] [address] Assigned PCP 05/15/22 Katiana Read MD [address] [address] Assigned Endocrinology Provider 06/19/22 Meme Singleton, PhD [address] [facility] [place] [address] Assigned Behavioral Health Provider 07/03/22 12/31/22 Mary Del Cid, RAFAEL [address] [place] [address] Nurse Practitioner Nurse Practitioner 10/18/22 Elham Stack, [facility] [address] [place] [address] Pharmacist Pharmacist 10/19/22 Mary Del Cid, RAFAEL [address] [place] [address] Assigned Pain Medication Provider 10/30/22 12/03/22 Michelle Guzman DPM, Podiatry/Foot and Ankle Surgery [address] [place] [address] Assigned Musculoskeletal Provider 10/16/22 04/08/23 documented as of this encounter
--- OUTSIDE RECORDS SUMMARY | 2023-08-03 12:43 | XMS_ITS | Encounter Summary ---
Author Name Unknown Organization [facility] Address [address] [place] [address]. [place] [address] Care Team Providers Care Topographical Surveyor Name Role Phone Jovany Gonzalez MD Unavailable CrissyStaci jeong SURG NURSE Unavailable [phone] Unavailable Roshni Nascimento RN Unavailable Unavailable Kiet Swain MD Unavailable [phone] Winsome Pike APRN TECHNOLOGY SALES REPRESENTATIVE Unavailable [phone] Tori Hines [facility] Unavailable Miranda Queen [facility] Unavailable Unavailable Marisel Armando MD Unavailable Marisel Armando MD Unavailable Wesley Barrett MD Unavailable [phone] Dyan Fuentes MD Primary Care Provider [phone] Dyan Fuentes MD Unavailable [phone] Katiana Read MD Unavailable [phone] Meme Singleton PhD Unavailable [phone] Mary Del Cid SURG NURSE Unavailable [phone] Elham Stack [facility] Unavailable [phone] Mary Del Cid NP Unavailable [phone] Michelle Guzman DPM, Podiatry /Foot and Ankle [...] ZZHC STATISTIC IV PUSH SINGLE INITIAL SUBSTANCE MI ECHO MYOCARD BX MI INJECTION, PERFLUTREN LIPID MICROSPHERES, PER ML MI TTE W/DOPPLER, COMPLETE MI IV PUSH SINGLE, INITIAL SUBSTANCE MI TTE W/DOPPLER, COMPLETE MI TTE W/DOPPLER, COMPLETE HC US GUIDE FOR PERICARDIOCENTESIS HC ECHO MYOCARD BX HC IV PUSH SINGLE, INITIAL SUBSTANCE HC STATISTIC IV PUSH SINGLE INITIAL SUBSTANCE HC ECHO COMPLETE W DOPPLER W CONTRAST HC ECHO COMPLETE W DOPPLER W/[place] [address] [place] [address] Cv Cardiac Svc [facility] [address] [facility] [address] [place] [address] Referral ID Status Reason Start Date Expiration Date Visits Re quested Visits Authorized Closed 12/02/2022 12/02/2023 1 1 * CV Cardio consult (Routine: Next available opening) - Referral NOT Required Specialty Diagnoses / Procedures Referred By Contac t Referred To Contact Cardiovascular Disease Diagnoses Chronic diastolic congestive heart failure (H) [place] [address] [place] [address] Referral ID Status Reason Start Date Expiration Date V isits Requested Visits Authorized [id number] Referral NOT Required 11/25/2022 11/25/2023 1 1 Question Answer Reason for Consult: General Cardiology Scheduling Instructions: [facility] will call you to coordinate your care as prescribed by your provider. If you don't hear from a sales representative aircraft within 2 business days, please call [phone]. Comments Please be aware that coverage of these services is subject to the terms and limitations of your health insurance plan. Call member services at your health plan with any benefit or coverage questions. [facility] will call you to coordinate your care as prescribed by your provider. If you don't hear from a sales representative aircraft within 2 business days, please call [phone]. Reason for Visit * Reason Comments Hospital F/U Encounter Details Date Type Department Care Team (Late st Contact Info) Description 11/25/2022 3:00 PM CDT Office Visit [address] [address] Dyan Fuentes MD [address] [place] [address] Hospital discharge follow-up (Primary Dx); C. [...] How often do you attend [facility] or confucianism services? 1 to 4 times [...] Date Recorded PHQ-2 Score 2 11/25/2022 [facility] - Occupational Stress Questionnaire Answer [...] questionnaires are needed Patient preferred phone number: [phone] Patient contact not needed. See discharge- Did [...] help with this. - Adult Cardiology Eval Executive Coordinator Referral; Future Chronic diastolic congestive heart failure (H) - Adult Cardiology Eval Executive Coordinator Referral; Future Encounter for long-term opiate analgesic use - per pain clinic - Drug Screen 9, Ser/Jaime w/ Rflx to Conf Post Medication Reconciliation Status: Discharge medications reconciled, continue medications without change Dyan Fuentes MD [facility] KAT Bright is a 61 year old, presenting for the following health issues: Hospital F/U 11/25/2022 3:02 PM Additional Questions Roomed by Sarah Daily [facility] Hospital Follow-up Visit: Hospital/Prison/IP Rehab Facility: [facility] Date of Admission: 10/25/2022 Date of Discharge: 10/28/2022 Reason(s) for Admission: Last attending ??? Treatment team Nausea and vomiting, unspecified vomiting type Was your hospitalization related to COVID-19? No Problems taking medications regularly: None Medication changes since discharge: None Problems adhering to non-medication therapy: None Summary of hospitalization: [facility] discharge summary reviewed Diagnostic Tests/Treatments [...] encounter Miscellaneous Notes * Addendum Note - Dyan Fuentes MD - 11/25/2022 3:00 PM CDTAddended by: DYAN FUENTES on: 12/02/2022 10:12 AM Modules accepted: Orders documented in this encounter Plan of Treatment Upcoming Encounters Date Type Department Care Team (Late st Contact Info) Description 08/18/2023 3:00 PM TECHNICAL SERVICES LIBRARIAN Office Visit [facility] [address] [place] [address] Katiana Read MD [address] [place] [address] Scheduled Orders Name Type Priority Associated Diagnoses Order Schedule Echocardiogram Complete Echocardiography Routine Chronic diastolic congestive heart failure (H) Expected: 12/02/2022 (Approximate), Expires: 12/03/2023 Scheduled Referrals Name Type Priority Associated Diagnoses Orde r Schedule Adult Cardiology Eval Executive Coordinator Referral Referral Routine: Next available opening Chronic [...] * THC Confirmation (11/25/2022 3:39 PM CDT) [facility] 253 ng/mL 12/01/2022 2:29 PM CDT [facility] Comment: INTERPRETIVE INFORMATION: THC Metabolite, Serum or ?Plasma, Quantitative Methodology: Quantitative Liquid Chromatography-Tandem Mass Spectrometry. Positive cutoff: 5 ng/mL For medical purposes only; not valid for forensic use. The drug analyte detected in this assay, 9-carboxy THC, is a metabolite of cssmo-3-wpwkipgxuqqywltgijnk (THC). ?? Detection of 9-carboxy THC suggests use of, or exposure to, a product containing THC. ??This test cannot distinguish between prescribed or non-prescribed forms of THC, nor can it distinguish between active or passive use. ??The plasma half-life for 9-carboxy THC metabolite is estimated to range from 4-12 hours. This test was developed and its performance characteristics determined by [employer]. It has not been cleared or approved by the [place] Food and Drug Administration. This test was performed in a CLIA certified laboratory and is intended for clinical purposes. Performed By: [facility] [address] [place], [place] [id number] Case Work Aide: Sherman Park MD, PhD Blood BLOOD SPECIMEN / Unknown Venipuncture / Unknown 11/25/2022 3:39 PM CDT 11/25/2022 3:39 PM CDT Mary Donna Del Cid NP LAB - BLOOD DENICE BERGMAN [address] [address], [facility] [phone] * Buprenophine Confirmation (11/25/2022 3:39 PM CDT) Norbuprenorphine 36.6 ng/mL 12/02/19 1:28 PM CDT [facility] Buprenorphine 5.6 ng/mL 12/01/2022 1:28 PM CDT [facility] Comment: INTERPRETIVE INFORMATION: Buprenorphine and Metabolites, [...] developed and its performance characteristics determined by [employer]. It has not been cleared or approved by the [place] Food and Drug Administration. This test was performed in a CLIA certified laboratory and is intended for clinical purposes. Performed By: [facility] [address] [place] [id number] Case Work Aide: Sherman Park MD, PhD Blood BLOOD SPECIMEN / Unknown Venipuncture / Unknown 11/25/2022 3:39 PM CDT 11/25/2022 3:39 PM CDT Mary Del Cid NP LAB - BLOOD DENICE BERGMAN [facility] [address] [place] [address], [facility] [phone] * Drug Screen 9, Ser/Jaime w/ Rflx to Conf (11/25/2022 3:39 PM CDT) Pathologist [facility] Amphetamines Qual Negative Cutoff 20 ng/mL [...] developed and its performance characteristics determined by [employer]. It has not been cleared or approved by the US Food and Drug Administration. This test was performed in a CLIA certified laboratory and is intended for clinical purposes. Performed By: [facility] [address] [place] [id number] Case Work Aide: Sherman Park MD, PhD Cannabinoids Qual Positive Cutoff 20 ng/mL 11/27/2022 6:47 PM CDT [facility] Comment: If the screen is positive, then confirmation by mass spectrometry will be added. Additional charges will apply. Unconfirmed positive may be useful for medical purposes, but does not meet forensic standards. Blood BLOOD SPECIMEN / Unknown Venipuncture / Unknown 11/25/2022 3:39 PM CDT 11/25/2022 3:39 PM CDT Mary Del Cid NP LAB - BLOOD DENICE BERGMAN [facility] [address] [place] [address], [facility] [phone] * (ABNORMAL) TSH (11/25/2022 3:39 PM CDT) TSH 96.00(H) 0.30 - 4.20 uIU/mL 11/26/2022 8:09 PM CDT [facility] Blood BLOOD SPECIMEN / Unknown Venipuncture / Unknown 11/25/2022 3:39 PM CDT 11/25/2022 3:39 PM CDT Dyan Fuentes MD LAB - BLOOD ORDER LENA [facility] [address] [facility], [address] [phone], [facility] [phone] * (ABNORMAL) T4, free (11/25/2022 3:39 PM CDT) Free T4 0.88(L) 0.90 - 1.70 ng/dL 11/26/2022 8:09 PM CDT [facility] Blood BLOOD SPECIMEN / Unknown Venipuncture / Unknown 11/25/2022 3:39 PM CDT 11/25/2022 3:39 PM CDT Dyan Fuentes MD LAB - BLOOD ORDER LENA Performing Organization Address City/[facility]/ZIP Co de Phone Number LABORATORY [facility] [address] [facility], [address] [phone], [facility] [phone] documented in this encounter Visit Diagnoses Diagnosis [...] documented as of this encounter Care Teams Topographical Surveyor Relationship Specialty [place] [address] [address] [place] [address] PCP - General Family Medicine 05/18/22 Jovany Gonzalez MD [facility] [address] [facility] [address] [place], [place] [address] Orthopedics 02/15/17 Staci Woodward NP [place] [address] [place], [place] [address] Nurse Practitioner Nurse Practitioner Psych/Mental Health 05/10/17 Reanna Smith, RD [facility] [address] [place], [place] [id number] Director Of Distance Learning Dietitian, Registered 07/25/19 Roshni Nascimento, RN Personal Advocate & Liaison (PAL) Family Medicine 08/18/20 Kiet Swain MD [address] [place] [id number] Referring Physician Psychiatry 09/19/20 Winsome Pike APRN TECHNOLOGY SALES REPRESENTATIVE [facility] [address] [address] Nurse Practitioner Psychiatry 09/19/20 Tori Hines, [facility] [address] [place] [address] Senior Principal Process Engineer Senior Principal Process Engineer - Clinical 09/19/20 Miranda Queen [facility] [address] [place] [address] Pharmacist Pharmacist 11/12/20 Marisel Armando MD [address] [place], [place] [address] Gastroenterology 02/05/21 Marisel Armando MD [address] [place] [address] [id number] Assigned Gastroenterology Provider 03/08/21 12/24/22 Wesley Barrett MD [address] [facility] [address] [place], [place] [address] Assigned Neuroscience Provider 05/10/21 [place] [address] [place] [address] Assigned PCP 05/15/22 Katiana Read MD [address] [facility] 200 [place] [address] Assigned Endocrinology Provider 06/19/22 [place] [address] [place] [address] Assigned Behavioral Health Provider 07/03/22 12/31/22 Mary Del Cid, RAFAEL [address] [place] [address] Nurse Practitioner Nurse Practitioner 10/18/22 Elham Stack, [facility] [address] [place] [address] Pharmacist Pharmacist 10/19/22 [place] [address] [address] [place] [address] Assigned Pain Medication Provider 10/30/22 12/03/22 Michelle Guzman DPM, Podiatry/Foot and Ankle Surgery [address] [place] [address] Assigned Musculoskeletal Provider 10/16/22 04/08/23 documented as of this encounter
--- OUTSIDE RECORDS SUMMARY | 2023-08-03 12:44 | XMS_ITS | Encounter Summary ---
Author Name Unknown Organization [facility] Address [address] [place] [address]. [place] [address] Care Team Providers Care Handicrafts Teacher Name Role Phone Jovany Gonzalez MD Unavailable CrissyStaci jeong NP Unavailable [phone] Unavailable [phone] Roshni Nascimento RN Unavailable Unavailable Kiet Swain MD Unavailable [phone] Winsome Pike APRN EMERGENCY MANAGEMENT PROGRAM SPECIALIST Unavailable [phone] Tori HinesSW Unavailable Miranda Queen [facility] Unavailable Unavailable Marisel Armando MD Unavailable Marisel Armando MD Unavailable Wesley Barrett MD Unavailable [phone] Dyan Fuentes MD Primary Care Provider [phone] Dyan Fuentes MD Unavailable [phone] Katiana Read MD Unavailable [phone] Meme Singleton PhD Unavailable [phone] Deena Garza MANAGER TECHNICAL SERVICES EMERGENCY MANAGEMENT PROGRAM SPECIALIST Unavailable [phone] Mary Del Cid MEALS ON WHEELS DRIVER Unavailable Elham Stack [facility] Unavailable Michelle Guzman DPM, Podiatry /Foot and Ankle Surgery Unavailable Reason for Visit * Reason Comments Nausea, Vomiting, & Diarrhea * Auth/Cert (Routine) Specialty Diagnoses / Procedures Referred By Jose R kelly Referred To Contact Med Surg Diagnoses Dehydration Nausea and vomiting, unspecified vomiting type Nausea and vomiting, unspecified vomiting type Observation Dept [address] [place] [address] Referral ID Status Reason Start Date Expiration Date Visits Re quested Visits Authorized [id number] 1 1 Encounter Details Date Type Department Care Team (Late st Contact Info) Description 10/28/2022 11:30 AM CDT - 10/28/2022 12:20 PM CDT Surgery [facility] PeriOp Services [address] [place] [address] Jeffry Fajardo MD [facility] [address] [place] [address] COLONOSCOPY with biopsies Surgery Details Date/Time Status [...] How often do you attend chur or spiritism services? 1 to 4 times [...] Answer Date Recorded PHQ-2 Score 2 10/25/2022 [facility] [...] Ivan PA-C - 10/28/2022 3:23 PM CDT [facility] Hospitalist Discharge Summary Date of Admission: [...] and vomiting on 10/26/2022. ?? Hospitalized at [facility] on 10/17 after presenting for nausea, vomiting, [...] and back, right hip pain - continue bellman captain buprenorphine, does report breakthrough abdominal pain - PRN oxycodone was prescribed during the hospital admission patient utilized appropriately and didnot discharge with additional narcotics outside of her prior to admission buprenorphine ?? Type 2 DM - reduce bellman captain dose 10 units to 5 units for now, until tolerating oral intake - sliding scale insulin - blood sugars 151-215 ?? COPD - not in acute exacerbation ?? GERD -on Protonix HOOKMAN, continued here ?? HTN HLD - continue bellman captain??amlodipine, metoprolol,??fenofibrate, colestipol,??Crestor ?? Anxiety -Continue HOOKMAN Rexulti, klonopin,??Pristiq,??risperidone ?? Consultations This Hospital Stay [...] Benign essential hypertension naloxone (NARCAN) nasal spray [place] 1 spray (4 mg) into one nostril alternating nostrils as needed Qty: 0.2 mL, Refills: 0 Associated Diagnoses: At risk for substance overdose nitroGLYcerin (NITROSTAT) 0.[address] 1 tablet (0.4 mg) under the tongue every 5minutes as needed for chest pain Qty: 25 tablet, Refills: 0 Associated Diagnoses: Chest pain, unspecified type nystatin (MYCOSTATIN) 329591 UNIT/GM external ointment Apply topically 2 times [...] tablet by mouth daily Continuous Blood Gluc Avionics Systems Engineer (DEXCOM G6 RN DOCUMENTATION SPECIALIST) ANITA USE DAILY Qty: 1 each, Refills: [...] by mouth daily 0 Continuous Blood Gluc Avionics Systems Engineer (DEXCOM G6 RN DOCUMENTATION SPECIALIST) DEVIIndications:Type 2 diabetes mellitus without complication, with long-term current use of insulin (H) USE DAILY 1 each 0 06/15/2022 EPINEPHrine (ANY BX GENERIC EQUIV) 0.3 MG/0.3ML injection 2-packIndications:Bee sting allergy Inject 0.3 mLs (0.3 mg) into the muscle as needed for anaphylaxis (EPI-PEN) 2 each 1 06/14/2022 nitroGLYcerin (NITROSTAT) 0.4 MG sublingual tabletIndications:Ariadna st pain, unspecified type Place 1 tablet (0.4 mg) under the tongue every 5 minutes as needed for chest pain 25 tablet 0 08/20/2019 nystatin (MYCOSTATIN) 516064 UNIT/GM external ointment Apply topically 2 times daily as needed 0 simethicone (MYLICON) 80 MG chewable tabletIndications:Becerra colitis [...] mouth daily 180 tablet 1 06/15/2022 07/14/2023 metoprolol tartrate (LOPRESSOR) 25 MG tabletIndications:Edmundo ign [...] mouth daily 90 tablet 3 06/14/2022 05/12/2023 lactobacillus rhamnosus, GG, (CULTURELL) capsuleIndications:C. difficile colitis Take 1 capsule by mouth 2 times daily for 14 days 28 capsule 0 10/17/2022 10/31/2022 acetaminophen (TYLENOL) 325 MG tabletIndications:Pos t-op pain Take 3 tablets (975 mg) by mouth every 6 hours as needed for mild pain 0 07/15/2022 12/03/2022 Continuous Blood Gluc Sensor (DEXCOM G6 SENSOR) [...] as directed. 100 each 0 12/14/2021 12/03/2022 Lidocaine (LIDOCARE) 4 % Patch Place onto the skin daily as needed for moderate pain To prevent lidocaine toxicity, patient should be patch free for 12 hrs daily. 0 12/03/2022 methocarbamol (ROBAXIN) 500 MG tablet Take 1,000 mg by mouth 4 times daily 0 11/11/2022 naloxone (NARCAN) nasal sprayIndications:At risk for substance overdose [place] 1 spray (4 mg) into one nostril alternating nostrils as needed 0.2 mL 0 11/19/2016 11/11/2022 ondansetron (ZOFRAN ODT) 8 MG ODT tabIndications:Nausea DISSOLVE 1 TABLET ON THE TONGUE TWICE DAILY NEEDED FOR NAUSEA 18 tablet 1 11/17/2021 11/25/2022 documented as of this encounter Progress Notes * Melissa Ivan PA-C - 10/27/2022 10:48 AM CDT [facility] Medicine Progress Note - Hospitalist Service Date of Admission: 10/26/2022 Assessment & Plan Kaila Hernandez is a 61 year old female with PMhx of chronic pain on buprenorphine, COPD, GERD, anxiety, anemia, DMT2, pancreatitis, remote history of C. difficile statuspost prior fecal transplant, who was re- admitted with abdominal pain, nausea and vomiting on 10/26/2022. Hospitalized at [facility] on 10/17 after presenting for nausea, vomiting, [...] and back, right hip pain - continue bellman captain buprenorphine, does report breakthrough abdominal pain - PRN oxycodone available ?? Type 2 DM - reduce bellman captain dose 10 units to 5 units for now, until tolerating oral intake - sliding scale insulin - blood sugars 151-215 ?? COPD - not in acute exacerbation ?? GERD -on Protonix HOOKMAN, continued here ?? HTN HLD - continue bellman captain amlodipine, metoprolol, fenofibrate, colestipol, Crestor ?? Anxiety -Continue HOOKMAN Rexulti, klonopin, Pristiq, risperidone ? Diet: Clear [...] Physician, Dr. Rodriguez, Bedside Nurse and GI Route Delivery Driver(s). Melissa Ivan PA-C Hospitalist Service [facility] Securely message with [employer] (more info) Text page via [facility] Paging/Directory Interval History Right upper abdomen [...] note. Data PAST 24 HR DATA REVIEWED [id number]} Associated attestation - Marlon Rodriguez MD - [...] Rossi PA-C - 10/26/2022 12:21 PM CDT [facility] History and Physical - Hospitalist Service [...] bloody emesis or diarrhea. Recently discharged from [facility] on 10/17 with thought to be [...] buprenorphine Hx Medication seeking behaviors - continue bellman captain buprenorphine, asking for pain medication upon admission - PRN oxycodone available avoid use if able given her history Type 2 DM - reduce bellman captain dose 10 units to 5 units for now, until tolerating oral intake - sliding scale insulin COPD - not in acute exacerbation GERD -Continue Protonix HTN HLD - continue bellman captain amlodipine, metoprolol, fenofibrate, colestipol, Crestor Anxiety [...] the Patient. DANISHA Rossi PA-C Hospitalist Service [facility] Securely message with [employer] (more info) Text page via [facility] Paging/Directory Chief Complaint Nausea, Vomiting, diarrhea [...] bloody emesis or diarrhea. Recently discharged from [facility] on 10/17 with thought to be [...] ANKLE ARTHROSCOPY; Surgeon: Jovany Gonzalez MD; Location: [facility];Service: ??? BACK SURGERY Lumbar and cervical [...] FIBULAR FRACTURE; Surgeon: Jovany Gonzalez MD; Location: [facility]; Service: ??? rectocele and cystocel repairs ??? REMOVE HARDWARE LOWER EXTREMITY Right 12/13/2017 Procedure: REMOVAL OF SYNDESMOSIS SCREWS, SUHAS; Surgeon: Jovany Gonzalez MD; Location: [facility]; Service: ??? REPAIR RECTOCELE ??? TONSILLECTOMY ??? ZZC NONSPECIFIC PROCEDURE 06/2001 Colonoscopy - neg -- abstracted 12/26/01 Prior to Admission Medications Prior to Admission Medications Prescriptions Last Dose Informant Patient Reported? Taking? Continuous Blood Gluc Avionics Systems Engineer (DEXCOM G6 RN DOCUMENTATION SPECIALIST) ANITA No No Sig: USE DAILY Continuous Blood Gluc Sensor (DEXCOM G6 SENSOR) [facility] No No Sig: USE 1 SENSOR EVERY 10 DAYS Continuous Blood Gluc Transmit (DEXCOM G6 TRANSMITTER) [facility] No No Sig: Change [...] (NARCAN) nasal spray Pharmacy No No Sig: [place] 1 spray (4 mg) into one nostril alternating nostrils as needed nitroGLYcerin (NITROSTAT) 0.4 MG sublingual tablet Self No No Sig: Place 1 tablet (0.4 mg) under the tongue every 5 minutes as needed for chest pain nystatin (MYCOSTATIN) 845837 UNIT/GM external ointment No No Sig: Apply [...] 14 days vitamin D3 (CHOLECALCIFEROL) 1.25 MG (32777 UT) capsule Yes No Sig: Take 50,000 [...] their history, physical and plan for Kaila Pindea Rob Hernandez. I did not participate in [...] to home when medically stable. GARCIA More, [facility] Inpatient Care Coordination [facility] [phone] * Jessica Greenfield PA-C - 10/27/2022 10:20 AM CDTAssociated Order(s): GASTROENTEROLOGY IP CONSULT [facility] Gastroenterology Consultation Kaila Hernandez [address] [place] [id number] 61 year old female Admission Date/Time: 10/26/2022 [...] fecal transplant about 6 years ago with [facility]. Since that time, her episodes of C. [...] TWICE A DAY naloxone (NARCAN) nasal spray, [place] 1 spray (4 mg) into one nostril alternating nostrils as needed nitroGLYcerin (NITROSTAT) 0.4 MG sublingual tablet, Place 1 tablet (0.4 mg) under the tongue every 5 minutes as needed for chest pain nystatin (MYCOSTATIN) 495688 UNIT/GM external ointment, Apply topically 2 times [...] tablet by mouth daily Continuous Blood Gluc Avionics Systems Engineer (DEXCOM G6 RN DOCUMENTATION SPECIALIST) ANITA, USE DAILY Continuous Blood Gluc Sensor [...] ANKLE ARTHROSCOPY; Surgeon: Jovany Gonzalez MD; Location: [facility] OR;Service: ??? BACK SURGERY Lumbar and cervical [...] FIBULAR FRACTURE; Surgeon: Jovany Gonzalez MD; Location: [facility] OR; Service: ??? rectocele and cystocel repairs ??? REMOVE HARDWARE LOWER EXTREMITY Right 12/13/2017 Procedure: REMOVAL OF SYNDESMOSIS SCREWS, SUHAS; Surgeon: Jovany Gonzalez MD; Location: [facility] OR; Service: ??? REPAIR RECTOCELE ??? TONSILLECTOMY [...] review, patient visit, documentation, coordination. DARYL Wilkinson [facility] Digestive Health Office: [phone] call if needed after 5PM , not [...] including patient evaluation, reviewing documentation/test results, and recorder gravity prospecting. Jeffry Fajardo MD Thank you for the opportunity to participate in the care of this patient. Please feel free to call me with any questions or concerns. Phone number . documented in this encounter ED Notes * Davina Sahu RN - 10/26/2022 12:[address] [facility] ED Nurse Handoff Report Kaila Hernandez [...] Assist. Lift room needed: No. Bariatric: No Agricultural Technician Needed: No Isolation: Yes. Infection: C-Diff (Clostridium [...] (COLESTID) 1 g tablet Continuous Blood Gluc Avionics Systems Engineer (DEXCOM G6 RN DOCUMENTATION SPECIALIST) ANITA Continuous Blood Gluc Sensor (DEXCOM G6 [...] (NITROSTAT) 0.4 MG sublingual tablet nystatin (MYCOSTATIN) 184794 UNIT/GM external ointment omega-3 acid ethyl esters (LOVAZA) 1 g capsule ondansetron (ZOFRAN ODT) 8 MG ODT tab pantoprazole (PROTONIX) 40 MG EC tablet Potassium Gluconate 595 MG CAPS risperiDONE (RISPERDAL M-TABS) 0.5 MG ODT rosuvastatin (CRESTOR) 40 MG tablet vancomycin (VANCOCIN) 125 MG capsule vitamin D3 (CHOLECALCIFEROL) 1.25 MG (64178 UT) capsule Past Medical History: Past Medical [...] ANKLE ARTHROSCOPY; Surgeon: Jovany Gonzalez MD; Location: [facility] Main OR;Service: ??? BACK SURGERY Lumbar and [...] FIBULAR FRACTURE; Surgeon: Jovany Gonzalez MD; Location: [facility] OR; Service: ??? rectocele and cystocel repairs ??? REMOVE HARDWARE LOWER EXTREMITY Right 12/13/2017 Procedure: REMOVAL OF SYNDESMOSIS SCREWS, SUHAS; Surgeon: Jovany Gonzalez MD; Location: [facility] OR; Service: ??? REPAIR RECTOCELE ??? TONSILLECTOMY [...] care of Dr. Rodriguez. Impression & Plan [facility] Diagnoses: The Lactic acid level is elevated [...] Return to near baseline physical activity: Yes Wildlife Rehabilitator Nurse Safe discharge environment identified: Yes Barriers [...] Return to near baseline physical activity: Yes Wildlife Rehabilitator Nurse Safe discharge environment identified: Yes Barriers [...] Return to near baseline physical activity: Yes Wildlife Rehabilitator Nurse Safe discharge environment identified: No Barriers [...] Return to near baseline physical activity: Yes Wildlife Rehabilitator Nurse Safe discharge environment identified: No Barriers [...] Return to near baseline physical activity: Yes Wildlife Rehabilitator Nurse Safe discharge environment identified: Yes Barriers to discharge: Yes - Patient to have colonoscopy completed tomorrow at 1100. Entered by: Carter Regan RN 10/27/2022 Patient is A&Ox4 and VSS on RA. Patient has left PIV saline locked. Patient is independent in room otherwise SBA. Commode set up at bedside. Bowel prep completed and continues to have watery stools. They are getting marker machine in color - will continue to monitor. [...] Return to near baseline physical activity: Yes Wildlife Rehabilitator Nurse Safe discharge environment identified: Yes Barriers [...] Return to near baseline physical activity: Yes Wildlife Rehabilitator Nurse Safe discharge environment identified: Yes Barriers [...] Return to near baseline physical activity: Yes Wildlife Rehabilitator Nurse Safe discharge environment identified: Yes Barriers [...] are managing. Plan: G I consult today Wildlife Rehabilitator Nurse Safe discharge environment identified: Yes Barriers [...] to make her need known.will continue management. Wildlife Rehabilitator Nurse Safe discharge environment identified: Yes Barriers [...] Return to near baseline physical activity: Yes Wildlife Rehabilitator Nurse Safe discharge environment identified: Yes Barriers [...] Return to near baseline physical activity: Yes Wildlife Rehabilitator Nurse Safe discharge environment identified: Yes Barriers [...] SW consult): Home with Facility name: N/A basket person: ([facility]) [phone] Activity level at baseline: IND, might need [...] * Pharmacy-Admission Medication History - Yee Sullivan [facility] - 10/26/2022 1:56 PM CDT Pharmacist Admission [...] not work for her. Changes made to HOOKMAN medication list: ??? Added: aspirin, vitamin d1000 ??? Deleted: [id number] daily prn, icy hot patch, vitamin d 02376 weekly ??? Changed: lidocaine patch from scheduled [...] yes Medication History Completed By: Yee Sullivan [facility] 10/26/2022 1:56 PM Prior to Admission medications Medication Sig Last Dose Taking? Auth Provider [employer] Instructor End Date acetaminophen (TYLENOL) 325 MG tablet [...] Fuentes MD Yes naloxone (NARCAN) nasal spray [place] 1 spray (4 mg) into one nostril alternating nostrils as needed Unknown at ? Yes Winsome Ghotra APRN CNP Yes nitroGLYcerin (NITROSTAT) 0.[address] 1 tablet (0.4 mg) under the tongue every 5minutes as needed for chest pain Past Month at ? Yes Len Adhikari MD Yes nystatin (MYCOSTATIN) 442487 UNIT/GM external ointment Apply topically 2 times daily as needed Unknown at ? Yes Unknown, Entered By History omega-3 acid ethyl esters (LOVAZA) 1 g capsule TAKE 2 CAPSULES BY MOUTH TWICE A DAY [facility] Len Adhikari MD ondansetron (ZOFRAN ODT) 8 [...] Contact Info) Description 08/18/2023 3:00 PM BUSINESS ADMINISTRATION INSTRUCTOR Office Visit [facility] [address] [place] [address] Katiana Read MD [address] [place] [address] Scheduled Orders Name Type Priority Associated Diagnoses [...] 10/28/2022 1:36 PM CDT Marlon Rodriguez MD [facility] POCT LABORATORY [facility] Acute Care Lab [address] [facility] Lab (1st floor, no room number) [place] [address], [facility] [phone] * Surgical Pathology Exam (10/28/2022 11:48 AM CDT) Case Report Surgical Pathology Report ? Case: [id number] ? Authorizing Provider: ??Jeffry Fajardo MD Collected: ? 10/28/2022 11:48 AM ? Ordering Location: ? [facility] ?? Received: ?10/28/2022 12:15 PM ? [...] Entirely submitted in one cassette. (DIANA Lozada ([facility])) 10/29/2022 2:44 PM CDT LABORATORY Microscopic Description Microscopic examination was performed. 10/29/2022 2:44 PM CDT LABORATORY Performing Labs The technical component of this testing was completed at [facility] 10/29/2022 2:44 PM CDT LABORATORY Case Images 10/29/2022 2:44 PM CDT LABORATORY Tissue STRUCTURE OF DISTAL PORTION OF ILEUM / Unknown 10/28/2022 11:48 AM CDT 10/28/2022 12:15 PM CDT Tissue specimen (specimen) COLON STRUCTURE / Unknown 10/28/2022 11:49 AM CDT 10/28/2022 12:15 PM CDT Comment:Concerns: Possible C -diff. versus Microscopic colitis Jeffry [facility] LABORATORY [facility] Acute Care Lab [address] [facility] (1st floor, no room number) [place] [address], [facility] [phone] * COLONOSCOPY (10/28/2022 11:10 AM CDT) COLONOSCOPY [facility] Patient Name: Kaila Hernandez Procedure Date: [...] by the physician, ?the nurse and the machinist bench in the procedure ?room. Mental Status Examination: [...] and ?oxygen saturations were monitored continuously. The ?Venga Pediatric Colonoscope Model # [id number]-[id number], ?Endora # 257, SN # [id number] was introduced through ?the anus and advanced [...] Procedure Code(s): ? --- Professional --- ? 92965, Colonoscopy, flexible; with biopsy, single or multiple CPT copyright 2020 [employer]. All rights reserved. The codes documented in this report are preliminary and upon district court administrator review may be revised to meet current compliance requirements. Electronically signed by Jeffry Fajardo MD JEFFRY FAJARDO MD 10/28/2022 12:11:08 PM I was physically present for the entire viewing portion of the exam. JEFFRY FAJARDO MD Number of Addenda: 0 Note Initiated On: 10/28/2022 11:10 AM MRN: ?[id number] Procedure Date: ? 10/28/2022 11:10:36 AM Scope [...] AM CDT Marlon Rodriguez MD LAB - [facility] POCT LABORATORY [facility] Acute Care Lab [address] [facility] Lab (1st floor, no room number) [place] [address], [facility] [phone] * (ABNORMAL) Glucose by meter (10/28/2022 8:00 AM CDT) GLUCOSE BY METER POCT 135(H) 70 - 99 mg/dL 10/28/2022 8:07 AM CDT [facility] LABORATORY POC Blood, Capillary BLOOD SPECIMEN / Unknown 10/28/2022 8:00 AM CDT 10/28/2022 8:07 AM CDT Marlon Rodriguez MD LAB - BEAK[facility] POCT Performing Organization Address City/[facility]/ZIP Co de Phone Number LABORATORY [facility] Lab [address] Lab (1st floor, no room number) [place] [address], [place] [phone] * (ABNORMAL) Glucose by meter (10/28/2022 1:39 AM CDT) GLUCOSE BY METER POCT 137(H) 70 - 99 mg/dL 10/28/2022 1:45 AM CDT LABORATORY POC Blood, Capillary BLOOD SPECIMEN / Unknown 10/28/2022 1:39 AM CDT 10/28/2022 1:45 AM CDT Marlon Rodriguez MD LAB - BEAKER POCT Performing Organization Address [facility]/ZIP Co de Phone Number LABORATORY [facility] Lab [address] Lab (1st floor, no room number) [place] [address], [place] [phone] * (ABNORMAL) Glucose by meter (10/27/2022 9:07 PM CDT) GLUCOSE BY METER POCT 126(H) 70 - 99 mg/dL 10/27/2022 9:14 PM CDT LABORATORY POC Blood, Capillary BLOOD SPECIMEN / Unknown 10/27/2022 9:07 PM CDT 10/27/2022 9:14 PM CDT Marlon Rodriguez MD LAB - BEAKER POCT Performing Organization Address City/[facility]/ZIP Co de Phone Number LABORATORY [facility] Lab [address] Lab (1st floor, no room number) [place] [address], [place] [phone] * (ABNORMAL) C. difficile Antigen and Toxins [...] MICRO GEN ERAL ORDERABLES UU IDD LABORATORY [facility] Inf. Diseases Diag. Lab [address] [place] [address], [facility] [phone] * (ABNORMAL) C. difficile Toxin B PCR with reflex to C. difficile Antigen and Toxins A/B EIA (10/27/2022 7:20 PM CDT) Pathologist [facility] C Difficile Toxin B by PCR Positive( [...] Xpert C. difficile Assay, performed on the [employer] GeneXpert?? Instrument Systems, is a qualitative in [...] MICRO GEN ERAL ORDERABLES UU IDD LABORATORY [facility] Inf. Diseases Diag. Lab [address], [address] [place] [address], [facility] [phone] * Enteric Bacteria and Virus Panel by [...] performed by multiplexed, qualitative PCR using the [employer]on Enteric Pathogens Nucleic Acid Test. Results should [...] - MICRO GENERAL ORDERABLES UU IDD LABORATORY [facility] Inf. Diseases Diag. Lab [address], [address] [place] [address], [place] [phone] * (ABNORMAL) Glucose by meter (10/27/2022 4:57 PM CDT) GLUCOSE BY METER POCT 215(H) 70 - 99 mg/dL 10/27/2022 5:04 PM CDT LABORATORY POC Blood, Capillary BLOOD SPECIMEN / Unknown 10/27/2022 4:57 PM CDT 10/27/2022 5:04 PM CDT Marlon Rodriguez MD LAB - BEAKER POCT LABORATORY [facility] Acute Care Lab [address] [facility] Lab (1st floor, no room number) [place] [address], [place] [phone] * (ABNORMAL) Glucose by meter (10/27/2022 12:48 PM CDT) GLUCOSE BY METER POCT 164(H) 70 - 99 mg/dL 10/27/2022 12:54 PM CDT LABORATORY POC Blood, Capillary BLOOD SPECIMEN / Unknown 10/27/2022 12:48 PM CDT 10/27/2022 12:54 PM CDT Marlon Rodriguez MD LAB - BEAKER POCT LABORATORY POC [facility] Acute Care Lab [address] Lab (1st floor, no room number) [place] [address], [place] [phone] * Lipase (10/27/2022 6:34 AM CDT) Lipase 17 13 - 60 U/L 10/27/2022 11:18 AM CDT LABORATORY Blood STRUCTURE OF RIGHT UPPER LIMB / Unknown Venipuncture / Unknown 10/27/2022 6:34 AM CDT 10/27/2022 7:33 AM CDT Melissa Ivan PA-C LAB - BLOOD ORD ERABLES Performing Organization Address City/[facility]/ZIP Co de Phone Number LABORATORY [facility] Acute Care Lab [address] Lab (1st floor, no room number) [place] [address], [place] [phone] * (ABNORMAL) Basic metabolic panel (10/27/2022 6:34 [...] PA-C LAB - BLOOD ORDERABL ES LABORATORY [facility] [address] Lab (1st floor, no room number) [place] [id number], [place] [phone] * (ABNORMAL) Glucose by meter (10/27/2022 6:06 AM CDT) GLUCOSE BY METER POCT 151(H) 70 - 99 mg/dL 10/27/2022 6:13 AM CDT LABORATORY POC Blood, Capillary BLOOD SPECIMEN / Unknown 10/27/2022 6:06 AM CDT 10/27/2022 6:13 AM CDT Marlon Rodriguez MD LAB - BEAKER POCT LABORATORY [facility] Acute Care Lab [address] Lab (1st floor, no room number) [place] [address], [place] [phone] * (ABNORMAL) Glucose by meter (10/27/2022 1:53 AM CDT) GLUCOSE BY METER POCT 170(H) 70 - 99 mg/dL 10/27/2022 2:01 AM CDT LABORATORY POC Blood, Capillary BLOOD SPECIMEN / Unknown 10/27/2022 1:53 AM CDT 10/27/2022 2:01 AM CDT Marlon Rodriguez MD LAB - BEAKER POCT LABORATORY [facility] Lab [address] Lab (1st floor, no room number) [place] [id number], [place] [phone] * (ABNORMAL) Glucose by meter (10/26/2022 10:46 PM CDT) GLUCOSE BY METER POCT 215(H) 70 - 99 mg/dL 10/26/2022 10:52 PM CDT LABORATORY POC Blood, Capillary BLOOD SPECIMEN / Unknown 10/26/2022 10:46 PM CDT 10/26/2022 10:52 PM CDT Marlon Rodriguez MD LAB - BEAKER POCT Performing Organization Address City/[facility]/ZIP Co de Phone Number LABORATORY [facility] Lab [address] Lab (1st floor, no room number) [place] [id number], [place] [phone] * (ABNORMAL) Glucose by meter (10/26/2022 4:50 PM CDT) GLUCOSE BY METER POCT 209(H) 70 - 99 mg/dL 10/26/2022 4:57 PM CDT LABORATORY POC Blood, Capillary BLOOD SPECIMEN / Unknown 10/26/2022 4:50 PM CDT 10/26/2022 4:57 PM CDT Marlon Rodriguez MD LAB - BEAKER POCT LABORATORY [facility] Lab [address] Lab (1st floor, no room number) [place] [address], [facility] [phone] * (ABNORMAL) Phosphorus (10/26/2022 2:52 PM CDT) Phosphorus 1.8(L) 2.5 - 4.5 mg/dL 10/26/2022 3:19 PM CDT [facility] LABORATORY Blood STRUCTURE OF RIGHT UPPER LIMB / Unknown Venipuncture / Unknown 10/26/2022 2:52 PM CDT 10/26/2022 2:58 PM CDT Danisha Rossi PA-C LAB - BLOOD ORDERABL ES [facility] Acute Care Lab [address] Lab (1st floor, no room number) [place] [address], [facility] [phone] * Magnesium (10/26/2022 2:52 PM CDT) Magnesium 1.7 1.7 - 2.3 mg/dL 10/26/2022 3:19 PM CDT RH LABORATORY Blood STRUCTURE OF RIGHT UPPER LIMB / Unknown Venipuncture / Unknown 10/26/2022 2:52 PM CDT 10/26/2022 2:58 PM CDT Danisha Rossi PA-C LAB - BLOOD ORDERABL ES Performing Organization Address City/[facility]/ZIP Co de Phone Number [facility] Lab [address] Lab (1st floor, no room number) [place] [address], [facility] [phone] * Lactic acid whole blood (10/26/2022 2:52 PM CDT) Lactic Acid 1.2 0.7 - 2.0 mmol/L 10/26/2022 3:03 PM CDT RH LABORATORY Blood STRUCTURE OF RIGHT UPPER LIMB / Unknown Venipuncture / Unknown 10/26/2022 2:52 PM CDT 10/26/2022 2:57 PM CDT Dyan Samaniego MD LAB - BLOOD ORDERA BLES [facility] Acute Care Lab [address] Lab (1st floor, no room number) [place] [address], [place] [phone] * (ABNORMAL) Lactic acid whole blood (10/26/2022 11:50 AM CDT) Lactic Acid 2.8(H) 0.7 - 2.0 mmol/L 10/26/2022 11:56 AM CDT RH LABORATORY Blood STRUCTURE OF LEFT UPPER LIMB / Unknown Venipuncture / Unknown 10/26/2022 11:50 AM CDT 10/26/2022 11:53 AM CDT Dyan Samaniego MD LAB - BLOOD ORDERA BLES [facility] Care Lab [address] Lab (1st floor, no room number) [place] [address], [facility] [phone] * Extra Red Top Tube (10/26/2022 10:22 AM CDT) Hold Specimen JIC 10/26/2022 11:32 AM CDT LABORATORY Blood BLOOD SPECIMEN / Unknown Venipuncture / Unknown 10/26/2022 10:22 AM CDT 10/26/2022 10:28 AM CDT Dyan Samaniego MD LAB - BLOOD ORDERA BLES [facility] Care Lab [address] Lab (1st floor, no room number) [place] [address], [facility] [phone] * (ABNORMAL) CBC with platelets and differential [...] LAB - BLOOD ORDERA BLES RH LABORATORY [facility] Acute Care Lab [address] Lab (1st floor, no room number) [place] [address], [facility] [phone] * (ABNORMAL) Basic metabolic panel (BMP) (10/26/2022 [...] Samaniego MD LAB - BLOOD ORDERA BLES [facility] Acute Care Lab [address] [facility] Lab (1st floor, no room number) [place] [address], [facility] [phone] documented in this encounter Visit Diagnoses Diagnosis Nausea and vomiting, unspecified vomiting type- Primary Nausea and vomiting, unspecified vomiting type Dehydration Pancolitis (H) [place] ulcerative (chronic) colitis Nausea Nausea alone Pancolitis (H) [place] ulcerative (chronic) colitis documented in this encounter [...] if HYDROmorphone (DILAUDID) also ordered., Starting on [facility] 10/28/22 at 1205, Administer fentaNYL (SUBLIMAZE) [...] RN) 0913 ($Given - Provider: Birttney Masterson RN)1532 ($Given - Provider: Brittney Masterson [...] RN)1200 (Rate/Dose Change - Provider: Lenka Fan, MANAGER TECHNICAL SERVICES PRACTICE ADMINISTRATOR) PRN Medication Order 10/26/2022 10/27/2022 10/28/2022 acetaminophen [...] RN) 0301 (See Alternative - Provider: Evi Goznalez RN)1020 (Auto Hold - Provider: Orders Generic [...] procedural area)1215 (Unhold - Provider: Ann Fajardo [facility]) simethicone (MYLICON) chewable tablet 80 mg 80 [...] documented as of this encounter Care Teams Handicrafts Teacher Relationship Specialty [place] [address] [place] [address] PCP - General Family Medicine 05/18/22 Jovany Gonzalez MD [facility] [address] [facility] [address] [place], [place] [address] Orthopedics 02/15/17 Staci Woodward NP [place] [address] [place], [place] [id number] Nurse Practitioner Nurse Practitioner Psych/Mental Health 05/10/17 Reanna Smith, [facility] [address] [place] [address] Train Starter Dietitian, Registered 07/25/19 Roshni Nascimento, RN Personal Advocate & Liaison (PAL) Family Medicine 08/18/20 Kiet Swain MD [address] [place], [place] [id number] [place] [address] Referring Physician Psychiatry 09/19/20 Winsome Pike APRN EMERGENCY MANAGEMENT PROGRAM SPECIALIST [address] [place] [address] [id number] Nurse Practitioner Psychiatry 09/19/20 Tori Hines [facility] [address] [place] [address] [phone] Medical Delivery Driver Medical Delivery Driver - Clinical 09/19/20 Miranda Queen [facility] [id number] [place] [id number] Pharmacist Pharmacist 11/12/20 Marisel Armando MD [address] [place] [address] [phone] Gastroenterology 02/05/21 Marisel Armando MD [address] [place] [address] [phone] Assigned Gastroenterology Provider 03/08/21 12/24/22 Wesley Barrett MD [address] [place] [address] [address] [place], [place] [phone] Assigned Neuroscience Provider 05/10/21 [place] [address] [place] [address] Assigned PCP 05/15/22 Katiana Read MD [address] [place] [address] Assigned Endocrinology Provider 06/19/22 [place] [address] [place] [id number] Assigned Behavioral Health Provider 07/03/22 12/31/22 Deena Garza APRN EMERGENCY MANAGEMENT PROGRAM SPECIALIST [address] [place] [address] Assigned Pain Medication Provider 07/19/22 10/29/22 [place] [address] [place] [id number] Nurse Practitioner Nurse Practitioner 10/18/22 Elham Stack, [facility] [address] [place] [address] Pharmacist Pharmacist 10/19/22 Michelle Guzman, DPM, Podiatry/Foot and Ankle Surgery [address] [place] [address] Assigned Musculoskeletal Provider 10/16/22 04/08/23 documented as of this encounter
--- OUTSIDE RECORDS SUMMARY | 2023-08-03 12:44 | XMS_ITS | Encounter Summary ---
Author Name Unknown Organization [facility] Address [address] [place] [address]. [place] [address] Care Team Providers Care Fireworks Maker Name Role Phone Jovany Gonzalez MD Unavailable [phone] CrissyStaci jeong NP Unavailable [phone] Unavailable [phone] Roshni Nascimento RN Unavailable Unavailable Kiet Swain MD Unavailable [phone] Winsome Pike APRN INTEGRATION ARCHITECT Unavailable [phone] Tori HinesSW Unavailable Miranda Queen [facility] Unavailable Unavailable Marisel Armando MD Unavailable Marisel Armando MD Unavailable Wesley Barrett MD Unavailable [phone] Dyan Fuentes MD Primary Care Provider [phone] Dyan Fuentes MD Unavailable [phone] Katiana Read MD Unavailable [phone] Meme Singleton PhD Unavailable [phone] Deena Garza TRANSFORMER COIL WINDER INTEGRATION ARCHITECT Unavailable [phone] Mary Del Cid WIRE WRAPPER MACHINE OPERATOR Unavailable Elham Stack [facility] Unavailable Thomas Michelle J DPM, Podiatry /Foot and Ankle Surgery Unavailable Reason for Referral * Care Coordination (Routine: Next available opening) - Pending Review Specialty Diagnoses / Procedures Referred By Jose R t Referred To Contact Diagnoses Nausea and vomiting, unspecified vomiting type Melissa Ivan PA-C [address] [place] [address] Referral ID Status Reason Start Date Expiration Date V isits Requested Visits Authorized [id number] Pending Review 10/27/2022 10/27/2023 1 1 Question Answer Reason for Referral: Care Transition Transition: Inpatient to outpatient Clinical Staff have discussed the Care Coordination Referral with the patient and/or caregiver: No Comments Reason for Visit * Reason Comments Nausea, Vomiting, & Diarrhea * Auth/Cert (Routine) Specialty Diagnoses / Procedures Referred By JoseR t Referred To Contact Med Surg Diagnoses Dehydration Nausea and vomiting, unspecified vomiting type Nausea and vomiting, unspecified vomiting type Observation Dept [address] [place] [address] Referral ID Status Reason Start Date Expiration Date Visits Re quested Visits Authorized [id number] 1 1 Encounter Details Date Type Department Care Team (Late st Contact Info) Description 10/26/2022 10:28 AM CDT - 10/28/2022 3:27 PM CDT Emergency [facility] Observation Dept [address] [place] [address] Dyan Samaniego MD [facility] [address] [place] [address] Marlon Rodriguez MD [address] [place] [address] Pancolitis (H) (Primary Dx); Nausea [...] 10/16/2021 How often do you attend [facility] or mu-ism services? 1 to 4 times per year [...] 10/25/2022 [facility] [place] of Occupat ional Health - Occupational Stress [...] and vomiting on 10/26/2022. ?? Hospitalized at [facility] on 10/17 after presenting for nausea, [...] and back, right hip pain - continue dredge captain buprenorphine, does report breakthrough abdominal pain - PRN oxycodone was prescribed during the hospital admission patient utilized appropriately and didnot discharge with additional narcotics outside of her prior to admission buprenorphine ?? Type 2 DM - reduce dredge captain dose 10 units to 5 units for now, until tolerating oral intake - sliding scale insulin - blood sugars 151-215 ?? COPD - not in acute exacerbation ?? 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 HTN HLD - continue dredge captain??amlodipine, metoprolol,??fenofibrate, colestipol,??Crestor ?? Anxiety -Continue NATIONAL INVESTIGATIVE PRODUCER Rexulti, klonopin,??Pristiq,??risperidone ?? Consultations This Hospital Stay [...] EXAM: CT ABDOMEN PELVIS W CONTRAST LOCATION: [facility] DATE/TIME: 10/14/2022 10:45 PM INDICATION: Generalized abdominal [...] Benign essential hypertension naloxone (NARCAN) nasal spray Hopewell 1 spray (4 mg) into one nostril alternating nostrils as needed Qty: 0.2 mL, Refills: 0 Associated Diagnoses: At risk for substance overdose nitroGLYcerin (NITROSTAT) 0.[address] 1 tablet (0.4 mg) under the tongue every 5minutes as needed for chest pain Qty: 25 tablet, Refills: 0 Associated Diagnoses: Chest pain, unspecified type nystatin (MYCOSTATIN) 024152 UNIT/GM external ointment Apply topically 2 times [...] tablet by mouth daily Continuous Blood Gluc Firer Boiler (DEXCOM G6 MEDICAID COLLECTION SPECIALIST) ANITA USE DAILY Qty: 1 each, [...] pain 25 tablet 0 08/20/2019 nystatin (MYCOSTATIN) 955628 UNIT/GM external ointment Apply topically 2 times [...] by mouth daily 0 Continuous Blood Gluc Firer Boiler (DEXCOM G6 MEDICAID COLLECTION SPECIALIST) DEVIIndications:Type 2 diabetes mellitus without complication, [...] (NARCAN) nasal sprayIndications:At risk for substance overdose Hopewell 1 spray (4 mg) into one nostril [...] Ivan PA-C - 10/27/2022 10:48 AM CDT [facility] Medicine Progress Note - Hospitalist Service Date of Admission: 10/26/2022 Assessment & Plan Kaila Hernandez is a 61 year old female with PMhx of chronic pain on buprenorphine, COPD, GERD, anxiety, anemia, DMT2, pancreatitis, remote history of C. difficile statuspost prior fecal transplant, who was re- admitted with abdominal pain, nausea and vomiting on 10/26/2022. Hospitalized at [facility] on 10/17 after presenting for nausea, [...] and back, right hip pain - continue dredge captain buprenorphine, does report breakthrough abdominal pain - PRN oxycodone available ?? Type 2 DM - reduce dredge captain dose 10 units to 5 units for now, until tolerating oral intake - sliding scale insulin - blood sugars 151-215 ?? COPD - not in acute exacerbation ?? 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 HTN HLD - continue dredge captain amlodipine, metoprolol, fenofibrate, colestipol, Crestor ?? Anxiety -Continue NATIONAL INVESTIGATIVE PRODUCER Rexulti, klonopin, Pristiq, risperidone ? Diet: Clear [...] Physician, Dr. Rodriguez, Bedside Nurse and GI Rn Admit(s). Melissa Ivan PA-C Hospitalist Service [facility] Securely message with [employer]rav[employer] (more info) Text page via [email or web address] Paging/Directory Interval History Right upper abdomen pain [...] note. Data PAST 24 HR DATA REVIEWED [id number]} Associated attestation - Marlon Rodriguez MD - [...] Rossi PA-Reji - 10/26/2022 12:21 PM CDT [facility] [...] bloody emesis or diarrhea. Recently discharged from [facility] on 10/17 with thought to be [...] buprenorphine Hx Medication seeking behaviors - continue dredge captain buprenorphine, asking for pain medication upon admission - PRN oxycodone available avoid use if able given her history Type 2 DM - reduce dredge captain dose 10 units to 5 units for now, until tolerating oral intake - sliding scale insulin COPD - not in acute exacerbation GERD -Continue Protonix HTN HLD - continue dredge captain amlodipine, metoprolol, fenofibrate, colestipol, Crestor Anxiety [...] Hospitalist Service [facility] Securely message with [employer] (more info) Text page via [facility] Paging/Directory Chief Complaint Nausea, Vomiting, diarrhea [...] bloody emesis or diarrhea. Recently discharged from [facility] on 10/17 with thought to be [...] Procedure: Right total hip arthroplasty; Surgeon: Lencho Maoy MD; Location: OR ??? ARTHROSCOPY ANKLE Right 12/13/2017 Procedure: RIGHT ANKLE ARTHROSCOPY; Surgeon: Jovany Gonzalez MD; Location: [facility] Main OR;Service: ??? BACK SURGERY Lumbar and [...] Surgeon: Jovany Gonzalez MD; Location: [facility] OR; Service: ??? rectocele and cystocel repairs ??? REMOVE HARDWARE LOWER EXTREMITY Right 12/13/2017 Procedure: REMOVAL OF SYNDESMOSIS SCREWS, SUHAS; Surgeon: Jovany Gonzalez MD; Location: [facility] Main OR; Service: ??? REPAIR RECTOCELE ??? TONSILLECTOMY ??? ZZC NONSPECIFIC PROCEDURE 06/2001 Colonoscopy - neg -- abstracted 12/26/01 Prior to Admission Medications Prior to Admission Medications Prescriptions Last Dose Informant Patient Reported? Taking? Continuous Blood Gluc Firer Boiler (DEXCOM G6 MEDICAID COLLECTION SPECIALIST) ANITA No No Sig: USE DAILY Continuous Blood Gluc Sensor (DEXCOM G6 SENSOR) [facility] No No Sig: USE 1 SENSOR EVERY 10 DAYS Continuous Blood Gluc Transmit (DEXCOM G6 TRANSMITTER) [facility] No No Sig: Change every 3 months [...] (NARCAN) nasal spray Pharmacy No No Sig: Hopewell 1 spray (4 mg) into one nostril alternating nostrils as needed nitroGLYcerin (NITROSTAT) 0.4 MG sublingual tablet Self No No Sig: Place 1 tablet (0.4 mg) under the tongue every 5 minutes as needed for chest pain nystatin (MYCOSTATIN) 651322 UNIT/GM external ointment No No Sig: Apply [...] 14 days vitamin D3 (CHOLECALCIFEROL) 1.25 MG (49241 UT) capsule Yes No Sig: Take 50,000 [...] to home when medically stable. GARCIA More, [facility] Inpatient Care Coordination [facility] [phone] * Jessica Greenfield PA-C - 10/27/2022 10:20 AM CDTAssociated Order(s): GASTROENTEROLOGY IP CONSULT [facility] Gastroenterology Consultation Kaila Hernandez [address] [place] [id number] 61 year old female Admission Date/Time: 10/26/2022 [...] fecal transplant about 6 years ago with [facility]. Since that time, her episodes of C. [...] TWICE A DAY naloxone (NARCAN) nasal spray, Hopewell 1 spray (4 mg) into one nostril alternating nostrils as needed nitroGLYcerin (NITROSTAT) 0.4 MG sublingual tablet, Place 1 tablet (0.4 mg) under the tongue every 5 minutes as needed for chest pain nystatin (MYCOSTATIN) 017523 UNIT/GM external ointment, Apply topically 2 times [...] tablet by mouth daily Continuous Blood Gluc Firer Boiler (DEXCOM G6 MEDICAID COLLECTION SPECIALIST) ANITA, USE DAILY Continuous Blood Gluc Sensor (DEXCOM G6 SENSOR) MIS, USE 1 SENSOR EVERY 10 DAYS Continuous Blood Gluc Transmit (DEXCOM G6 TRANSMITTER) [facility], Change every 3 months to continuously monitor [...] Procedure: Right total hip arthroplasty; Surgeon: Lencho aMyo MD; Location: [facility] OR ??? ARTHROSCOPY ANKLE Right 12/13/2017 Procedure: RIGHT ANKLE ARTHROSCOPY; Surgeon: Jovany Gonzalez MD; Location: [facility];Service: ??? BACK SURGERY Lumbar and cervical [...] FIBULAR FRACTURE; Surgeon: Jovany Gonzalez MD; Location: [facility]; Service: ??? rectocele and cystocel repairs ??? REMOVE HARDWARE LOWER EXTREMITY Right 12/13/2017 Procedure: REMOVAL OF SYNDESMOSIS SCREWS, SUHAS; Surgeon: Jovany Gonzalez MD; Location: [facility] OR; Service: ??? REPAIR RECTOCELE ??? [...] review, patient visit, documentation, coordination. Jessica Greenfield, [facility] Digestive [facility] Office: [phone] call if needed after 5PM , not [...] including patient evaluation, reviewing documentation/test results, and telephone order supervisor. Jeffry Fajardo MD Thank you for the opportunity to participate in the care of this patient. Please feel free to call me with any questions or concerns. Phone number . documented in this encounter ED Notes * Davina Sahu RN - 10/26/2022 12:33 PM CDT [facility] ED Nurse Handoff Report Kaila Hernandez [...] Assist. Lift room needed: No. Bariatric: No Chip Bin Conveyor Tender Needed: No Isolation: Yes. Infection: C-Diff (Clostridium [...] (COLESTID) 1 g tablet Continuous Blood Gluc Firer Boiler (DEXCOM G6 MEDICAID COLLECTION SPECIALIST) ANITA Continuous Blood Gluc Sensor (DEXCOM [...] (NITROSTAT) 0.4 MG sublingual tablet nystatin (MYCOSTATIN) 342225 UNIT/GM external ointment omega-3 acid ethyl esters (LOVAZA) 1 g capsule ondansetron (ZOFRAN ODT) 8 MG ODT tab pantoprazole (PROTONIX) 40 MG EC tablet Potassium Gluconate 595 MG CAPS risperiDONE (RISPERDAL M-TABS) 0.5 MG ODT rosuvastatin (CRESTOR) 40 MG tablet vancomycin (VANCOCIN) 125 MG capsule vitamin D3 (CHOLECALCIFEROL) 1.25 MG (49320 UT) capsule Past Medical History: Past Medical [...] ANKLE ARTHROSCOPY; Surgeon: Jovany Gonzalez MD; Location: [facility];Service: ??? BACK SURGERY Lumbar and cervical [...] FIBULAR FRACTURE; Surgeon: Jovany Gonzalez MD; Location: [facility]; Service: ??? rectocele and cystocel repairs ??? REMOVE HARDWARE LOWER EXTREMITY Right 12/13/2017 Procedure: REMOVAL OF SYNDESMOSIS SCREWS, SUHAS; Surgeon: Jovany Gonzalez MD; Location: [facility] OR; Service: ??? REPAIR RECTOCELE ??? [...] care of Dr. Rodriguez. Impression & Plan [facility] Diagnoses: The Lactic acid level is elevated [...] Return to near baseline physical activity: Yes Supervisor Pipelines Nurse Safe discharge environment identified: Yes Barriers [...] Return to near baseline physical activity: Yes Supervisor Pipelines Nurse Safe discharge environment identified: Yes Barriers [...] Return to near baseline physical activity: Yes Supervisor Pipelines Nurse Safe discharge environment identified: No Barriers [...] Return to near baseline physical activity: Yes Supervisor Pipelines Nurse Safe discharge environment identified: No Barriers [...] Return to near baseline physical activity: Yes Supervisor Pipelines Nurse Safe discharge environment identified: Yes Barriers to discharge: Yes - Patient to have colonoscopy completed tomorrow at 1100. Entered by: Carter Regan RN 10/27/2022 Patient is A&Ox4 and VSS on RA. Patient has left PIV saline locked. Patient is independent in room otherwise SBA. Commode set up at bedside. Bowel prep completed and continues to have watery stools. They are getting hand lens polisher in color - will continue to monitor. [...] Return to near baseline physical activity: Yes Supervisor Pipelines Nurse Safe discharge environment identified: Yes Barriers [...] Return to near baseline physical activity: Yes Supervisor Pipelines Nurse Safe discharge environment identified: Yes Barriers [...] Return to near baseline physical activity: Yes Supervisor Pipelines Nurse Safe discharge environment identified: Yes Barriers [...] are managing. Plan: G I consult today Supervisor Pipelines Nurse Safe discharge environment identified: Yes Barriers [...] to make her need known.will continue management. Supervisor Pipelines Nurse Safe discharge environment identified: Yes Barriers [...] Return to near baseline physical activity: Yes Supervisor Pipelines Nurse Safe discharge environment identified: Yes Barriers [...] Return to near baseline physical activity: Yes Supervisor Pipelines Nurse Safe discharge environment identified: Yes Barriers [...] SW consult): Home with Facility name: N/A safety person: ([facility]) [phone] Activity level at baseline: IND, might need [...] not work for her. Changes made to NATIONAL INVESTIGATIVE PRODUCER medication list: ??? Added: aspirin, vitamin d1000 ??? Deleted: [id number] daily prn, icy hot patch, vitamin d 83879 weekly ??? Changed: lidocaine patch from scheduled [...] yes Medication History Completed By: Yee Sullivan [facility] 10/26/2022 1:56 PM Prior to Admission medications Medication Sig Last Dose Taking? Auth Provider Detention End Date acetaminophen (TYLENOL) 325 MG tablet [...] by mouth daily 10/25/2022 at am Yes yDan Fuentes MD Yes aspirin 81 MG EC [...] Fuentes MD Yes naloxone (NARCAN) nasal spray Hopewell 1 spray (4 mg) into one nostril alternating nostrils as needed Unknown at ? Yes Winsome Ghotra APRN INTEGRATION ARCHITECT Yes nitroGLYcerin (NITROSTAT) 0.[address] 1 tablet (0.4 mg) under the tongue every 5minutes as needed for chest pain Past Month at ? Yes Len Adhikari MD Yes nystatin (MYCOSTATIN) 772945 UNIT/GM external ointment Apply topically 2 times [...] for 14 days 10/25/2022 at afternoon Yes Jnaine Del Rosario PA-C No 10/31/22 Vitamin D3 (VITAMIN D, CHOLECALCIFEROL,) 25 mcg (1000 units) tablet Take 1 tablet by mouth daily 10/25/2022 at am Yes Unknown, Entered By History documented in this encounter Plan of Treatment Upcoming Encounters Date Type Department Care Team (Late st Contact Info) Description 08/18/2023 3:00 PM THREAD SPINNER Office Visit [facility] [address] [place] [address] Katiana Read MD [address] [place] [address] Scheduled Orders Name Type Priority Associated Diagnoses [...] Glucose by meter (10/28/2022 1:29 PM CDT) [facility] GLUCOSE BY METER POCT 138(H) 70 - 99 mg/dL 10/28/2022 1:36 PM CDT LABORATORY POC Blood, Capillary BLOOD SPECIMEN / Unknown 10/28/2022 1:29 PM CDT 10/28/2022 1:36 PM CDT [facility]lon [facility] [address] [facility] ([facility] floor, no room number) [place] [address], [place] [phone] * Surgical Pathology Exam (10/28/2022 11:48 AM CDT) Case Report Surgical Pathology Report ? Case: [id number] ? Authorizing Provider: ??Jeffry Fajardo MD Collected: ? 10/28/2022 11:48 AM ? Ordering Location: ? [facility] ?? Received: ?10/28/2022 12:15 PM ? [...] component of this testing was completed at [facility] 10/29/2022 2:44 PM CDT LABORATORY Case Images 10/29/2022 2:44 PM CDT LABORATORY Tissue STRUCTURE OF DISTAL PORTION OF ILEUM / Unknown 10/28/2022 11:48 AM CDT 10/28/2022 12:15 PM CDT Tissue specimen (specimen) COLON STRUCTURE / Unknown 10/28/2022 11:49 AM CDT 10/28/2022 12:15 PM CDT Comment:Concerns: Possible C -diff. versus Microscopic colitis Jeffry TOSCANO - JOHN PAUL MOT[facility] Acute Care Lab [address] Lab (1st floor, no room number) [place] [address], [facility] [phone] * COLONOSCOPY (10/28/2022 11:10 AM CDT) [facility] Patient Name: Kaila PinedaHalie Robchristi Hernandez Procedure [...] by the physician, ?the nurse and the flour worker in the procedure ?room. Mental Status Examination: [...] and ?oxygen saturations were monitored continuously. The ?[employer] Pediatric Colonoscope Model # [id number]-XZ510B, ?Endora # [id number], SN # [id number] was introduced through ?the anus and advanced [...] Procedure Code(s): ? --- Professional --- ? 36798, Colonoscopy, flexible; with biopsy, single or multiple CPT copyright 2020 [employer]. All rights reserved. The codes documented in this report are preliminary and upon system admin review may be revised to meet current compliance requirements. Electronically signed by Jeffry Fajardo MD JEFFRY FAJARDO MD 10/28/2022 12:11:08 PM I was physically present for the entire viewing portion of the exam. JEFFRY FAJARDO MD Number of Addenda: 0 Note Initiated On: 10/28/2022 11:10 AM MRN: ?[id number] Procedure Date: ? 10/28/2022 11:10:36 AM Scope [...] Rodriguez MD LAB - BEAKER POCT LABORATORY [facility] Care Lab [address] Lab (1st floor, no room number) [place] [address], [facility] [phone] * (ABNORMAL) Glucose by meter (10/28/2022 8:00 AM CDT) GLUCOSE BY METER POCT 135(H) 70 - 99 mg/dL 10/28/2022 8:07 AM CDT [facility] LABORATORY POC Blood, Capillary BLOOD SPECIMEN / Unknown 10/28/2022 8:00 AM CDT 10/28/2022 8:07 AM CDT Marlon Rodriguez MD LAB - BEAKER POCT Performing Organization Address City/[facility]/ZIP Co de Phone Number LABORATORY [facility] Lab [address] Lab (1st floor, no room number) [place] [address], [facility] [phone] * (ABNORMAL) Glucose by meter (10/28/2022 1:39 AM CDT) GLUCOSE BY METER POCT 137(H) 70 - 99 mg/dL 10/28/2022 1:45 AM CDT [facility] LABORATORY POC Blood, Capillary BLOOD SPECIMEN / Unknown 10/28/2022 1:39 AM CDT 10/28/2022 1:45 AM CDT Marlon Rodriguez MD LAB - BEAKER POCT LABORATORY [facility] Care Lab [address] Lab (1st floor, no room number) [place] [address], [facility] [phone] * (ABNORMAL) Glucose by meter (10/27/2022 9:07 PM CDT) GLUCOSE BY METER POCT 126(H) 70 - 99 mg/dL 10/27/2022 9:14 PM CDT [facility] LABORATORY POC Blood, Capillary BLOOD SPECIMEN / Unknown 10/27/2022 9:07 PM CDT 10/27/2022 9:14 PM CDT Marlon Rodriguez MD LAB - BEAKER POCT [facility] LABORATORY POC [facility] Acute Care Lab [address] [facility] Lab (1st floor, no room number) [place] [address], [facility] [phone] * (ABNORMAL) C. difficile Antigen and Toxins [...] MICRO GEN ERAL ORDERABLES UU IDD LABORATORY [facility] Inf. Diseases Diag. Lab [address] [place] [address], [place] [phone] * (ABNORMAL) C. difficile Toxin B PCR [...] LABORATORY - 10/28/2022 2:14 AM CDT [employer] Xpert C. difficile Assay, performed on the [employer]?? Instrument Systems, is a qualitative in vitro [...] MICRO GEN ERAL ORDERABLES [facility] IDD LABORATORY [facility] Inf. Diseases Diag. Lab [address] [place] [address], [facility] [phone] * Enteric Bacteria and Virus Panel by [...] performed by multiplexed, qualitative PCR using the [employer] Enteric Pathogens Nucleic Acid Test. Results should [...] - MICRO GENERAL ORDERABLES [facility] IDD LABORATORY [facility] Inf. Diseases Diag. Lab [address] [place] [address] [phone] * (ABNORMAL) Glucose by meter (10/27/2022 4:57 PM CDT) [facility] GLUCOSE BY METER POCT 215(H) 70 - 99 mg/dL 10/27/2022 5:04 PM CDT LABORATORY POC Blood, Capillary BLOOD SPECIMEN / Unknown 10/27/2022 4:57 PM CDT 10/27/2022 5:04 PM CDT Marlon Rodriguez MD LAB - BEAKER POCT [facility] LABORATORY POC [facility] Care Lab [address] Lab (1st floor, no room number) [place] [id number], [facility] [phone] * (ABNORMAL) Glucose by meter (10/27/2022 12:48 PM CDT) GLUCOSE BY METER POCT 164(H) 70 - 99 mg/dL 10/27/2022 12:54 PM CDT LABORATORY POC Blood, Capillary BLOOD SPECIMEN / Unknown 10/27/2022 12:48 PM CDT 10/27/2022 12:54 PM CDT Marlon Rodriguez MD LAB - BEAKER POCT Performing Organization Address City/[facility]/ZIP Co de Phone Number LABORATORY POC [facility] Care Lab [address] Lab (1st floor, no room number) [place] [id number], [facility] [phone] * Lipase (10/27/2022 6:34 AM CDT) Lipase 17 13 - 60 U/L 10/27/2022 11:18 AM CDT LABORATORY Blood STRUCTURE OF RIGHT UPPER LIMB / Unknown Venipuncture / Unknown 10/27/2022 6:34 AM CDT 10/27/2022 7:33 AM CDT Melissa Ivan PA-C LAB - BLOOD ORD ERABLES LABORATORY [facility] Care Lab [address] Lab (1st floor, no room number) [place] [phone], [facility] [phone] * (ABNORMAL) Basic metabolic panel (10/27/2022 6:34 [...] 6:34 AM CDT 10/27/2022 7:33 AM CDT Danihsa Rossi PA-C LAB - BLOOD ORDERABL ES LABORATORY [facility] Acute Care Lab [address] Lab (1st floor, no room number) [place] [address], [facility] [phone] * (ABNORMAL) Glucose by meter (10/27/2022 6:06 AM CDT) [facility] GLUCOSE BY METER POCT 151(H) 70 - 99 mg/dL 10/27/2022 6:13 AM CDT LABORATORY POC Blood, Capillary BLOOD SPECIMEN / Unknown 10/27/2022 6:06 AM CDT 10/27/2022 6:13 AM CDT Marlon Rodriguez MD LAB - BEAKER POCT LABORATORY [facility] Lab [address] Lab (1st floor, no room number) [place] [phone], [facility] [phone] * (ABNORMAL) Glucose by meter (10/27/2022 1:53 AM CDT) GLUCOSE BY METER POCT 170(H) 70 - 99 mg/dL 10/27/2022 2:01 AM CDT [facility] LABORATORY POC Blood, Capillary BLOOD SPECIMEN / Unknown 10/27/2022 1:53 AM CDT 10/27/2022 2:01 AM CDT Marlon Rodriguez MD LAB - WESTERN [facility] POCT LABORATORY [facility] Lab [address] Lab (1st floor, no room number) [place] [address], [facility] [phone] * (ABNORMAL) Glucose by meter (10/26/2022 10:46 PM CDT) GLUCOSE BY METER POCT 215(H) 70 - 99 mg/dL 10/26/2022 10:52 PM CDT [facility] LABORATORY POC Blood, Capillary BLOOD SPECIMEN / Unknown 10/26/2022 10:46 PM CDT 10/26/2022 10:52 PM CDT Marlon Rodriguez MD LAB - AKER POCT LABORATORY [facility] Lab [address] Lab (1st floor, no room number) [place] [address], [facility] [phone] * (ABNORMAL) Glucose by meter (10/26/2022 4:50 PM CDT) GLUCOSE BY METER POCT 209(H) 70 - 99 mg/dL 10/26/2022 4:57 PM CDT RH LABORATORY POC Blood, Capillary BLOOD SPECIMEN / Unknown 10/26/2022 4:50 PM CDT 10/26/2022 4:57 PM CDT Marlon TOSCANO - JOHN PAUL POCT Performing Organization Address [facility]/ZIP Co de Phone Number LABORATORY [facility] Lab [address] Lab (1st floor, no room number) [place] [address], [facility] [phone] * (ABNORMAL) Phosphorus (10/26/2022 2:52 PM CDT) Phosphorus 1.8(L) 2.5 - 4.5 mg/dL 10/26/2022 3:19 PM CDT RH LABORATORY Blood STRUCTURE OF RIGHT UPPER LIMB / Unknown Venipuncture / Unknown 10/26/2022 2:52 PM CDT 10/26/2022 2:58 PM CDT Danisha Rossi PA-C LAB - BLOOD ORDERABL ES Performing Organization Address [facility] Co de Phone Number [facility] Care Lab [address] Lab (1st floor, no room number) [place] [address], [facility] [phone] * Magnesium (10/26/2022 2:52 PM CDT) Magnesium 1.7 1.7 - 2.3 mg/dL 10/26/2022 3:19 PM CDT RH LABORATORY Blood STRUCTURE OF RIGHT UPPER LIMB / Unknown Venipuncture / Unknown 10/26/2022 2:52 PM CDT 10/26/2022 2:58 PM CDT Danisha Rossi PA-C LAB - BLOOD ORDERABL ES Performing Organization Address [facility]/ZIP Co de Phone Number [facility] Lab [address] Lab (1st floor, no room number) [place] [address], [facility] [phone] * Lactic acid whole blood (10/26/2022 2:52 PM CDT) Lactic Acid 1.2 0.7 - 2.0 mmol/L 10/26/2022 3:03 PM CDT RH LABORATORY Blood STRUCTURE OF RIGHT UPPER LIMB / Unknown Venipuncture / Unknown 10/26/2022 2:52 PM CDT 10/26/2022 2:57 PM CDT Dyan Samaniego MD LAB - BLOOD ORDERA BLEDee Performing Organization Address City/[facility]/ZIP Co de Phone Number [facility] Lab [address] Lab (1st floor, no room number) [place] [phone], [facility] [phone] * (ABNORMAL) Lactic acid whole blood (10/26/2022 11:50 AM CDT) Lactic Acid 2.8(H) 0.7 - 2.0 mmol/L 10/26/2022 11:56 AM CDT RH LABORATORY Blood STRUCTURE OF LEFT UPPER LIMB / Unknown Venipuncture / Unknown 10/26/2022 11:50 AM CDT 10/26/2022 11:53 AM CDT Dyan Samaniego MD LAB - BLOOD ORDERA BLEDee Performing Organization Address [facility]/ZIP Co de Phone Number [facility] Lab [address] Lab (1st floor, no room number) [place] [address], [facility] [phone] * Extra Red Top Tube (10/26/2022 10:22 AM CDT) Hold Specimen JIC 10/26/2022 11:32 AM CDT RH LABORATORY Blood BLOOD SPECIMEN / Unknown Venipuncture / Unknown 10/26/2022 10:22 AM CDT 10/26/2022 10:28 AM CDT Dyan Samaniego MD LAB - BLOOD ORDERA BLEDee [facility] Lab [address] Lab (1st floor, no room number) [place] [address], [facility] [phone] * (ABNORMAL) CBC with platelets and differential [...] MD LAB - BLOOD ORDERA BLES LABORATORY [facility] Lab [address] Lab (1st floor, no room number) [place] [address], [facility] [phone] * (ABNORMAL) Basic metabolic panel (BMP) (10/26/2022 [...] Samaniego MD LAB - BLOOD ORDERA BLES [facility] Organization Address City/State/ZIP Co de Phone Number LABORATORY [facility] Lab [address] Lab (1st floor, no room number) [place] [address], [facility] [phone] documented in this encounter Visit Diagnoses Diagnosis Nausea and vomiting, unspecified vomiting type- Primary Nausea and vomiting, unspecified vomiting type Dehydration Pancolitis (H) [place] ulcerative (chronic) colitis Nausea Nausea alone documented [...] RN) 0913 ($Given - Provider: Brittney Masterson RN)1122 ($Given - Provider: Brittney Masterson [...] (Rate/Dose Change - Provider: Lenka Fan, VIDHI LIBRARY ACQUISITIONS TECHNICIAN) PRN Medication Order 10/26/2022 10/27/2022 10/28/2022 acetaminophen [...] Provider: Asia Dixon RN)1250 ($Given - Provider: Asai Dixon RN) lidocaine (LMX4) cream Topical, EVERY [...] procedural area)1215 (Unhold - Provider: Ann Fajardo [facility]) simethicone (MYLICON) chewable tablet 80 mg [...] documented as of this encounter Care Teams Fireworks Maker Relationship Specialty [place] [address] [place] [address] PCP - General Family Medicine 05/18/22 Jovany Gonzalez MD [facility] [address] [facility] [address] [place] [address] Orthopedics 02/15/17 Staci Woodward, WIRE WRAPPER MACHINE OPERATOR [place] [address] [place] [address] Nurse Practitioner Nurse Practitioner Psych/Mental Health 05/10/17 Reanna Smith, RD [place] [address] [place], [place] [address] Geophysical Engineer Dietitian, Registered 07/25/19 Roshni Nascimento, RN Personal Advocate & Liaison (PAL) Family Medicine 08/18/20 Kiet Swain MD [address] [place] [address] [id number] Referring Physician Psychiatry 09/19/20 Winsome Pike APRN INTEGRATION ARCHITECT [address] [place] [address] Nurse Practitioner Psychiatry 09/19/20 Tori Hines, [facility] [address] [place] [address] [id number] Oil Dispenser Oil Dispenser - Clinical 09/19/20 Miranda Queen [facility] [address] [place] [address] Pharmacist Pharmacist 11/12/20 Marisel Armando MD [address] [place], [place] [phone] Gastroenterology 02/05/21 Marisel Armando MD [address] [place], [place] 686245 Assigned Gastroenterology Provider 03/08/21 12/24/22 Wesley Barrett MD 420 [facility] 96 [place] [address] Assigned Neuroscience Provider 05/10/21 [place] [address] [place] [address] Assigned PCP 05/15/22 Katiana Read MD [address] [place] [address] 200 [place], [place] 9[address] Assigned Endocrinology Provider 06/19/22 Meme Sing[place] [address] [place] 7[address] Assigned Behavioral Health Provider 07/03/22 12/31/22 Deena Garza, TRANSFORMER COIL WINDER INTEGRATION ARCHITECT [address] [place] [address] Assigned Pain Medication Provider 07/19/22 10/29/22 Mary Del Cid, RAFAEL [address] [place] 408787 Nurse Practitioner Nurse Practitioner 10/18/22 Elham Stack, [facility] [address] [place] [address] Pharmacist Pharmacist 10/19/22 Michelle Guzman, ERIC, Podiatry/Foot and Ankle Surgery [address] [place] [address] [place] [address] Assigned Musculoskeletal Provider 10/16/22 04/08/23 documented as of this encounter
--- OUTSIDE RECORDS SUMMARY | 2023-08-03 12:45 | XMS_ITS | Encounter Summary ---
Author Name Unknown Organization [place] Address [address] [place] [address]. [place] [address] Care Team Providers Care Supervisor Prop Making Name Role Phone Jovany Gonzalez MD Unavailable CrissyStaci jeong NP Unavailable [phone] Unavailable Roshni Nascimento RN Unavailable Unavailable Kiet Swain MD Unavailable [phone] Winsome Pike APRN CASTER INVESTMENT CASTING Unavailable [phone] Tori HinesSW Unavailable Miranda Queen [facility] Unavailable Unavailable Marisel Armando MD Unavailable Marisel Armando MD Unavailable Wesley Brarett MD Unavailable [phone] Dyan Fuentes MD Primary Care Provider [phone] Dyan Fuentes MD Unavailable [phone] Katiana Read MD Unavailable [phone] Meme Singleton PhD Unavailable [phone] Deena Garza MEMS DEVICE SCIENTIST [employer] Unavailable [phone] Mary Del Cid DROP WIRE OPERATOR Unavailable Elham Stack [facility] Unavailable [phone] Emerita Potter Alisha [facility] Unavailable [phone] Mary Del Cid NP Unavailable [phone] Michelle Guzman DPM, Podiatry /Foot and Ankle Surgery Unavailable Dyan Fuentes MD Unavailable [phone] Mary Del Cid NP Unavailable [phone] Aubrey Jones MD Unavailable [phone] Blanquita Morales Unavailable Unavailable Aubrey Jones MD Unavailable [phone] Encounter Details Date Type Department Care Team (Late st Contact Info) Description 10/19/2022 MyC Medical Advice [address] [address] Elham Stack, [facility] [address] [place] [address] Social History Tobacco Use Types Packs/Day Years [...] often do you attend chur ch or hinduism services? 1 to 4 times per year [...] Answer Date Recorded PHQ-2 Score 0 06/14/2022 [facility] of Occupat ional Health - Occupational Stress [...] st Contact Info) Description 08/18/2023 3:00 PM RADIAL DRILL PRESS OPERATOR Office Visit [facility] [address] [place] [address] Katiana Read MD [address] [place] [address] documented as of this encounter Visit Diagnoses Not on filedocumented in this encounter Additional Health Concerns Infection Onset Date Last Indicated Resolved Time C-difficile 10/15/2022 10/27/2022 11/26/2022 11:4 0 PM CDT Rule Out C-difficile 10/26/2022 10/27/2022 023 2:14 AM CDT Rule Out C-difficile 12/05/2022 12/05/2022 023 9:44 AM CDT Assessment Noted Time PHQ-9 Depression Total Score: 13 022 3:28 PM RADIAL DRILL PRESS OPERATOR documented as of this encounter Care Teams Supervisor Prop Making Relationship Specialty [place] [address] [place] [address] PCP - General Family Medicine 05/18/22 Jovany Gonzalez MD [facility] [address] [facility] [address] [place], [place] 7[address] Orthopedics 02/15/17 Staci Woodward, DROP WIRE OPERATOR [place] [address] [place], [place] [phone] Nurse Practitioner Nurse Practitioner Psych/Mental Health 05/10/17 Reanna Smith, RD [place] [address] [place], [place] [phone] Siebel Architect Dietitian, Registered 07/25/19 Roshni Nascimento, RN Personal Advocate & Liaison (PAL) Family Medicine 08/18/20 Kiet Swain MD [address] [place] [address] 884334 Referring Physician Psychiatry 09/19/20 Winsome Pike APRN [employer]VESTMENT CASTING [address] [place] [address] Nurse Practitioner Psychiatry 09/19/20 Tori Hines, [facility] [address] [place] [address] [phone] Ethylene Plant Helper Ethylene Plant Helper - Clinical 09/19/20 Miranda Queen [facility] [address] [place] [address] Pharmacist Pharmacist 11/12/20 Marisel Armando MD [address] [place] [address] [phone] Gastroenterology 02/05/21 Marisel Armando MD [address]09 [place] [address] Assigned Gastroenterology Provider 03/08/21 12/24/22 Wesley Barrett MD 420 [facility] 96 [place] [address] Assigned Neuroscience Provider 05/10/21 [place] [address] [place] [address] Assigned PCP 05/15/22 Katiana Read MD [address] [place], [place] 0[address]140 Assigned Endocrinology Provider 06/19/22 Meme Singleton, PhD [address] [place] [address] Assigned Behavioral Health Provider 07/03/22 12/31/22 Deena Garza APRN [employer] [address] [place] [address] Assigned Pain Medication Provider 07/19/22 10/29/22 Mary Del Cid, RAFA[place] [address] [place] [address] Nurse Practitioner Nurse Practitioner 10/18/22 Elham Stack, [facility] [address] [place] [address] Pharmacist Pharmacist 10/19/22 Emerita Potter, [facility] Clinic Shearing Machine Feeder Ethylene Plant Helper - Clinical 10/29/22 11/02/22 [place] [address] [address] [place] [address] Assigned Pain Medication Provider 10/30/22 12/03/22 Michelle Guzman, DPM, Podiatry/Foot and Ankle Surgery [address] [place] [address] Assigned Musculoskeletal Provider 10/16/22 04/08/23 [place] [address] [place] [address] Assigned Pain Medication Provider 12/04/22 04/01/23 [place] [address] [address] [address] Nurse Practitioner Nurse Practitioner 01/17/23 01/17/23 Aubrey Jones MD [address] [place] [address] Cardiovascular Disease 03/28/23 Blanquita Morales Siebel Architect Diabetes Education 04/25/23 Aubrey Jones MD [address] [place] [address] Assigned Heart and Vascular Provider 05/07/23 documented as of this encounter
--- OUTSIDE RECORDS SUMMARY | 2023-08-03 12:45 | XMS_ITS | Encounter Summary ---
Author Name Unknown Organization [place] Address [address] [place] [address]. [place] [address] Care Team Providers Care Decorative Engraver Apprentice Name Role Phone Jovany Gonzalez MD Unavailable CrissyStaci jeong NP Unavailable [phone] Unavailable Roshni Nascimento RN Unavailable Unavailable Kiet Swain MD Unavailable [phone] Winsome Pike APRN COUNSELING SPECIALIST Unavailable [phone] Tori HinesSW Unavailable Miranda Queen [facility] Unavailable Unavailable Marisel Armando MD Unavailable Marisel Armando MD Unavailable Wesley Barrett MD Unavailable [phone] Dyan Fuentes MD Primary Care Provider [phone] Dyan Fuentes MD Unavailable [phone] Katiana Read MD Unavailable [phone] Meme Singleton PhD Unavailable [phone] Deena Garza HAND METHOD LASTING MACHINE OPERATOR COUNSELING SPECIALIST Unavailable [phone] Mary Del Cid MEDICAL CLAIMS SPECIALIST Unavailable Elham Stack [facility] Unavailable Michelle Guzman DPM, Podiatry [...] ZZHC STATISTIC IV PUSH SINGLE INITIAL SUBSTANCE VT ECHO MYOCARD BX VT INJECTION, PERFLUTREN LIPID MICROSPHERES, PER ML VT TTE W/DOPPLER, COMPLETE VT IV PUSH SINGLE, INITIAL SUBSTANCE VT TTE W/DOPPLER, COMPLETE VT TTE W/DOPPLER, COMPLETE HC US GUIDE FOR PERICARDIOCENTESIS HC ECHO MYOCARD BX HC IV PUSH SINGLE, INITIAL SUBSTANCE HC STATISTIC IV PUSH SINGLE INITIAL SUBSTANCE HC ECHO COMPLETE W DOPPLER W CONTRAST HC ECHO COMPLETE W DOPPLER W/[place] [address] [place] [address] Cv Cardiac Svc [facility] [address] [facility] [address] [place] [address] Referral ID Status Reason Start Date Expiration Date Visits Re quested Visits Authorized [id number] Closed 10/25/2022 10/25/2023 1 1 Reason for Visit * Reason Comments Hospital F/U 10/14/22-10/17/22 Encounter Details Date Type Department Care Team (Latest Contact Info) Description 10/25/2022 2:30 PM CDT Office Visit [facility] [address] [place] [phone] [place] [address] [place] [address] Hospital discharge follow-up (Primary Dx); Pancolitis (H); [...] 10/16/2021 How often do you attend [facility] or oriental orthodox services? 1 to 4 [...] Answer Date Recorded PHQ-2 Score 2 10/25/2022 [facility] - [...] PM) Provider Visit with Dyan Fuentes MD [facility] ([facility] ) [address] [facility] [address] Appointment Notes for this encounter: f/u per provider; blood testing; LV; kek Questionnaires Reviewed/Assigned No additional questionnaires are needed Patient preferred phone number: [phone] Contacted patient via phone. Are there any [...] 1 g tablet ??? Continuous Blood Gluc Medical Physics Researcher (DEXCOM G6 CHILD CAREGIVER) ANITA ??? Continuous Blood Gluc Sensor (DEXCOM [...] 0.4 MG sublingual tablet ??? nystatin (MYCOSTATIN) 994211 UNIT/GM external ointment ??? omega-3 acid ethyl esters (LOVAZA) 1 g capsule ??? ondansetron (ZOFRAN ODT) 8 MG ODT tab ??? pantoprazole (PROTONIX) 40 MG EC tablet ??? Potassium Gluconate 595 MG CAPS ??? risperiDONE (RISPERDAL M-TABS) 0.5 MG ODT ??? rosuvastatin (CRESTOR) 40 MG tablet ??? vancomycin (VANCOCIN) 125 MG capsule ??? vitamin D3 (CHOLECALCIFEROL) 1.25 MG (32979 UT) capsule No current facility-administered medications for this visit. MyChart Patient is active on MyChart. Call Summary Advised patient to call back at [phone] if needed. Roshni Nascimento RN * Dyan [...] continue medications without change Dyan Fuentes MD [facility] KAT Bright is a 61 year old, presenting for the following health issues: Hospital F/U (10/14/22-10/17/22) [facility] Hospital Follow-up Visit: Hospital/Long-Term/IP Rehab Facility: [facility] Date of Admission: 10/14/22 Date of Discharge: [...] st Contact Info) Description 08/18/2023 3:00 PM SLIPCOVER CUTTER Office Visit [facility] [address] [facility] [address] [place] [address] Katiana Read MD [address] [place], [place] [address] documented as of this encounter Results * ECHO COMPLETE WITH CONTRAST (12/17/2022 3:51 PM CDT) LVEF 60-65% CARDIOLOGY RESULTS Anatomical Region Laterality Modality Echocardiography 12/17/2022 3:18 PM CDT Narrative 12/17/2022 4:47 PM CDT [id number]^TORRES^DYAN^ULISES [facility] [address] [place] [address] Name: KADEN GRIFFIN : 1960 Study Date: 12/17/2022 03:18 PM Age: 62 yrs Gender: Female Patient Location: [facility] Reason For Study: Abnormal electrocardiogram Ordering Physician: DYAN FUENTES Referring Physician: DYAN FUENTES Performed By: Nguyen Castro BSA: 2.2 m2 Height: 68 in Weight: 228 lb HR: 90 Procedure Complete Echo Adult. Optison ([facility] #[id number]) given intravenously. Interpretation Summary There is mild [...] Procedure Note Nilo Light MD - 12/17/2022 [id number]^TORRES^DYAN^ULISES [facility] [address] [place] [address] Name: KADEN GRIFFIN : 1960 Study Date: 12/17/2022 03:18 PM Age: 62 yrs Gender: Female Patient Location: [facility] Reason For Study: Abnormal electrocardiogram Ordering Physician: DYAN FUENTES Referring Physician: DYAN FUENTES Performed By: Nguyen Castro BSA: 2.2 m2 Height: 68 in Weight: 228 lb HR: 90 Procedure Complete Echo Adult. Gorge ([facility] #[id number]) given intravenously. Interpretation Summary There is mild [...] follow-up- Primary Other follow-up examination Pancolitis (H) [place] ulcerative (chronic) colitis C. difficile colitis Intestinal [...] documented as of this encounter Care Teams Decorative Engraver Apprentice Relationship Specialty [place] [address] [place] [address] PCP - General Family Medicine 05/18/22 Jovany Gonzalez MD [facility] [address] [facility] [address] [place] [address] Orthopedics 02/15/17 Staci Woodward, MEDICAL CLAIMS SPECIALIST [place] [address] [place] [address] Nurse Practitioner Nurse Practitioner Psych/Mental Health 05/10/17 Reanna Smith, RD [facility] [address] [place] [address] Us Customs And Border Officer Dietitian, Registered 07/25/19 Roshni Nascimento, RN Personal Advocate & Liaison (PAL) Family Medicine 08/18/20 Kiet Swain MD [address] [place] [address] [id number] Referring Physician Psychiatry 09/19/20 Winsome Pike APRN COUNSELING SPECIALIST [address] [address] Nurse Practitioner Psychiatry 09/19/20 Tori Hines, [facility] [place], [place] [address] Mains And Service Supervisor Mains And Service Supervisor - Clinical 09/19/20 Miranda Queen [facility] [address] [place] [address] Pharmacist Pharmacist 11/12/20 Marisel Armando MD [address] [place] [address] 842565 Gastroenterology 02/05/21 Marisel Armando MD [address] [place] [address] Assigned Gastroenterology Provider 03/08/21 12/24/22 Wesley Barrett MD [address] [place] [address] 96 [place] [address] Assigned Neuroscience Provider 05/10/21 [place] [address] [place] [address] Assigned PCP 05/15/22 Katiana Read MD [address] [place] [address] [address] [place] [address] Assigned Endocrinology Provider 06/19/22 [place] [address] [place] [address] Assigned Behavioral Health Provider 07/03/22 12/31/22 Deena Garza APRN COUNSELING SPECIALIST [address] [place] [address] Assigned Pain Medication Provider 07/19/22 10/29/22 [place] [address] [place] [address] Nurse Practitioner Nurse Practitioner 10/18/22 Elham Stack, [facility] [address] [place] [address] Pharmacist Pharmacist 10/19/22 Michelle Guzman DPM, Podiatry/Foot and Ankle Surgery [address] [place] [facility] [place] [address] Assigned Musculoskeletal Provider 10/16/22 04/08/23 documented as of this encounter
--- OUTSIDE RECORDS SUMMARY | 2023-08-03 12:45 | XMS_ITS | Encounter Summary ---
Author Name Unknown Organization [facility] Address [address] [place] [address]. [place] [address] Care Team Providers Care Hospice Nurse Practitioner Name Role Phone Jovany Gonzalez MD Unavailable CrissyStaci jeong NP Unavailable [phone] Unavailable [phone] Roshni Nascimento RN Unavailable Unavailable Kiet Swain MD Unavailable [phone] Winsome Pike APRN CHROME POLISHER Unavailable [phone] Tori HinesSW Unavailable Miranda Queen [facility] Unavailable Unavailable Marisel Armando MD Unavailable Marisel Armando MD Unavailable Wesley Barrett MD Unavailable [phone] Dyan Fuentes MD Primary Care Provider +[phone] Dyan Fuentes MD Unavailable [phone] Katiana Read MD Unavailable [phone] Meme Singleton PhD Unavailable [phone] Deena Garza EVENING SITTER CHROME POLISHER Unavailable [phone] Mary Del Cid CENTRAL OFFICE EQUIPMENT INSTALLER Unavailable Elham Stack [facility] Unavailable [phone] Emerita Potter [facility] Unavailable [phone] Mary Del Cid CENTRAL OFFICE EQUIPMENT INSTALLER Unavailable + [phone] Michelle Guzman DPM, Podiatry /Foot and Ankle Surgery Unavailable Dyan Fuentes MD Unavailable [phone] Mary Del Cid NP Unavailable [phone] Aubrey Jones MD Unavailable [phone] Blanquita Morales Unavailable Unavailable Aubrey Jones MD Unavailable + [phone] Reason for Visit * Reason Onset Date Comments Refill Request 10/23/2022 risperiDONE (RIS PERDAL M-TABS) 0.5 MG ODT Encounter Details Date Type Department Care Team (Late st Contact Info) Description 10/23/2022 Refill [facility] [address] [place] [address] [place] [address] [place] [address] Refill Request (risperiDONE (RISPERDAL M-TABS) [...] week 10/16/2021 How often do you attend [facility] or gnosticist services? 1 to 4 times [...] Answer Date Recorded PHQ-2 Score 2 10/25/2022 [facility] of Occupat ional [facility] - Occupational Stress Questionnaire Answer Date [...] st Contact Info) Description 08/18/2023 3:00 PM OCTAVE BOARD ASSEMBLER Office Visit [facility] [address] [place] [address] Katiana Read MD [address] [address] [place] [address] documented as of this encounter [...] Depression Total Score: 13 022 3:28 PM OCTAVE BOARD ASSEMBLER documented as of this encounter Care Teams Hospice Nurse Practitioner Relationship Specialty [place] [address] [place] [address] PCP - General Family Medicine 05/18/22 Jovany Gonzalez MD [facility] [address] [facility] [address] [place] [address] Orthopedics 02/15/17 Staci Woodward, CENTRAL OFFICE EQUIPMENT INSTALLER [place] [address] [place], [place] 412697 Nurse Practitioner Nurse Practitioner Psych/Mental Health 05/10/17 Reanna Smith, RD [place] [address] [place], [place] 901987 Learning Center Instructor Dietitian, Registered 07/25/19 Roshni Nascimento, RN Personal Advocate & Liaison (PAL) Family Medicine 08/18/20 Kiet wSain MD [address] [place], [place] [address] [place], [place] 43[address] Referring Physician Psychiatry 09/19/20 Winsome Pike, VIDHI CHROME POLISHER [address] [place], [place] 1270[address] Nurse Practitioner Psychiatry 09/19/20 Tori Hines, [facility] [address] [place] [address] 999494 Waistline Joiner Overlock Waistline Joiner Overlock - Clinical 09/19/20 [facility] [address] [place] [address] Pharmacist Pharmacist 11/12/20 Marisel Armando MD [address] [place] [address] Gastroenterology 02/05/21 Marisel Armando MD [address] [place] [address] Assigned Gastroenterology Provider 03/08/21 12/24/22 Wesley Barrett MD [address] [place] [address] 215435 Assigned Neuroscience Provider 05/10/21 [place] [address] [place] [address] Assigned PCP 05/15/22 Katiana Read MD [address] [place] [address] 908250 Assigned Endocrinology Provider 06/19/22 Meme Singleton, PhD [address] [place] [address]327 Assigned Behavioral Health Provider 07/03/22 12/31/22 Deena Garza, EVENING SITTER CHROME POLISHER [address] [place] [address] Assigned Pain Medication Provider 07/19/22 10/29/22 Mary Del Cid, [place] [address] [place] [address] Nurse Practitioner Nurse Practitioner 10/18/22 Elham Stack, [facility] [address] [place] [address] Pharmacist Pharmacist 10/19/22 Emerita [place], [facility] Clinic Sustainable Design Consultant Waistline Joiner Overlock - Clinical 10/29/22 11/02/22 [place] [address] [address] [place] [address] Assigned Pain Medication Provider 10/30/22 12/03/22 Michelle Guzman DPM, Podiatry/Foot and Ankle Surgery [address] [place] [address] Assigned Musculoskeletal Provider 10/16/22 04/08/23 [place] [address] [place] [address] Assigned Pain Medication Provider 12/04/22 04/01/23 [place] [address] [place] [address] Nurse Practitioner Nurse Practitioner 01/17/23 01/17/23 Aubrey Jones MD [address] [place] [address] Cardiovascular Disease 03/28/23 Blanquita Morales Learning Center Instructor Diabetes Education 04/25/23 Aubrey Jones MD [address] [place] [address] Assigned Heart and Vascular Provider 05/07/23 documented as of this encounter
--- OUTSIDE RECORDS SUMMARY | 2023-08-03 12:45 | XMS_ITS | Encounter Summary ---
Author Name Unknown Organization [facility] Address [address] [place] [address]. [place] [address] Care Team Providers Care Director Of Digital Marketing Name Role Phone Jovany Gonzalez MD Unavailable CrissyStaci jeong NP Unavailable [phone] Unavailable Roshni Nascimento RN Unavailable Unavailable Kiet Swain MD Unavailable [phone] Winsome Pike APRN BEAD BUILDER Unavailable [phone] Tori HinesSW Unavailable Miranda Queen [facility] Unavailable Unavailable Marisel Armando MD Unavailable Marisel Armando MD Unavailable Wesley Barrett MD Unavailable [phone] Dyan Fuentes MD Primary Care Provider [phone] Dyan Fuentes MD Unavailable [phone] Katiana Read MD Unavailable [phone] Meme Singleton PhD Unavailable [phone] Deena Garza SILVER LAP MACHINE TENDER BEAD BUILDER Unavailable [phone] Mary Del Cid NAIL TECHNICIAN TEACHER Unavailable Elham Stack [facility] Unavailable [phone] Michelle Guzman DPM, Podiatry /Foot and Ankle Surgery Unavailable Reason for Visit * Reason Onset Date Comments Referral 10/19/2022 Encounter Details Date Type Department Care Team (Late st Contact Info) Description 10/19/2022 Telephone [facility] [address] [place] [address] [place] [address] [place] [address] Referral Social History Tobacco Use [...] Recorded PHQ-2 Score 0 06/14/2022 [facility] of Occupat ional Health - Occupational [...] encounter Miscellaneous Notes * Telephone Encounter - Nguyen Murray - 10/19/2022 1:56 PM CDT MTM referral from: Transitions of Care (recent hospital discharge or ED visit) MTM referral outreach attempt #2 on October 19, 2022 at 1:56 PM Outcome: Patient not reachable after several attempts, will route to [facility] Pharmacist/Provider as an FYI. [facility] scheduling number is [phone]. Thank you for the referral. Nguyen Murray - [facility] business risk analyst documented in this encounter Plan of Treatment Upcoming Encounters Date Type Department Care Team (Late st Contact Info) Description 08/18/2023 3:00 PM ER MEDICAL TECHNICIAN Office Visit [facility] [address] [facility] [address] [place] [address] Katiana Read MD [address] [place] [address] documented as of this encounter Visit Diagnoses Not on filedocumented in this encounter Additional Health Concerns Infection Onset Date Last Indicated Resolved Time C-difficile 10/15/2022 10/27/2022 11/26/2022 11:4 0 PM CDT Assessment Noted Time PHQ-9 Depression Total Score: 13 022 3:28 PM ER MEDICAL TECHNICIAN documented as of this encounter Care Teams Director Of Digital Marketing Relationship Specialty [place] [address] [place] [address] PCP - General Family Medicine 05/18/22 Jovany Gonzalez MD [facility] [address] [facility] [address] [place], [place] 3768[address] Orthopedics 02/15/17 Staci Woodward NAIL TECHNICIAN TEACHER [place] [address] [place], [place] 10[address]97 Nurse Practitioner Nurse Practitioner Psych/Mental Health 05/10/17 Reanna Smith, RD [place] [address] [place], [place] 295937 Historian Research Assistant Dietitian, Registered 07/25/19 Roshni Nascimento, RN Personal Advocate & Liaison (PAL) Family Medicine 08/18/20 Kiet Swain MD [address] [place] [address] 676284 Referring Physician Psychiatry 09/19/20 Winsome Pike APRN BEAD BUILDER [address] [place] [address] 339864 Nurse Practitioner Psychiatry 09/19/20 Tori Hines, [facility] [address] [place] [address] 142974 Desolderer Desolderer - Clinical 09/19/20 Miranda Queen [facility] [address] [place] [address] Pharmacist Pharmacist 11/12/20 Marisel Armando MD [address] [place] [address] 623545 Gastroenterology 02/05/21 Marisel Armando MD 909 [place] [address] Assigned Gastroenterology Provider 03/08/21 12/24/22 Welsey Barrett MD [address] [facility] [address] [place] [address] Assigned Neuroscience Provider 05/10/21 [place] [address] [place] [address] Assigned PCP 05/15/22 Katiana Read MD [address] [place] [address] Assigned Endocrinology Provider 06/19/22 Meme [place] [address] [place] [address] Assigned Behavioral Health Provider 07/03/22 12/31/22 Deena Garza APRN BEAD BUILDER [address] [place] [address] Assigned Pain Medication Provider 07/19/22 10/29/22 Mary Del Cid, [place] [address] [place] [address] Nurse Practitioner Nurse Practitioner 10/18/22 Elham Stack, [facility] [address] [place] [address] Pharmacist Pharmacist 10/19/22 Michelle Guzman, DPM, Podiatry/Foot and Ankle Surgery [address] [place] [address] Assigned Musculoskeletal Provider 10/16/22 04/08/23 documented as of this encounter
--- OUTSIDE RECORDS SUMMARY | 2023-08-03 12:45 | XMS_ITS | Encounter Summary ---
Author Name Unknown Organization [facility] Address [address] [place] [address]. [place] [address] Care Team Providers Care Manufacturing Group Leader Name Role Phone Jovany Gonzalez MD Unavailable CrissyStaci jeong NP Unavailable [phone] Unavailable Roshni Nascimento RN Unavailable Unavailable Kiet Swain MD Unavailable [phone] Winsome Pike APRN ENVIRONMENTAL PROTECTION ECONOMIST Unavailable [phone] Tori HinesSW Unavailable Miranda Queen [facility] Unavailable Unavailable Marisel Armando MD Unavailable Marisel Armando MD Unavailable Wesley Barrett MD Unavailable [phone] Dyan Fuentes MD Primary Care Provider [phone] Dyan Fuentes MD Unavailable [phone] Katiana Read MD Unavailable [phone] Meme Singleton PhD Unavailable [phone] Deena Garza EC TEACHER ENVIRONMENTAL PROTECTION ECONOMIST Unavailable [phone] Mary Del Cid COMMUNICABLE DISEASE SPECIALIST Unavailable Elham Stack [facility] Unavailable [phone] Michelle Guzman DPM, Podiatry /Foot and Ankle [...] 10/16/2021 How often do you attend [facility] or taoism services? 1 to 4 times per year [...] Answer Date Recorded PHQ-2 Score 2 10/25/2022 [facility] of Occupat ional Health - Occupational Stress [...] Contact Info) Description 08/18/2023 3:00 PM SUPPLIER ENGINEER Office Visit [facility] [address] [place] [address] Katiana Read MD [address] [place] [address] documented as of this encounter Visit Diagnoses Not on filedocumented in this encounter Additional Health Concerns Infection Onset Date Last Indicated Resolved Time C-difficile 10/15/2022 10/27/2022 11/26/2022 11:4 0 PM CDT Assessment Noted Time PHQ-9 Depression Total Score: 10 023 2:06 PM CDT documented as of this encounter Care Teams Manufacturing Group Leader Relationship Specialty [place] [address] [place] [address] PCP - General Family Medicine 05/18/22 Jovany Gonzalez MD [facility] 66[address] [facility] 605 [place], [place] 0[address]15 Orthopedics 02/15/17 Staci Woodward COMMUNICABLE DISEASE SPECIALIST [place] [address] [place] [address] Nurse Practitioner Nurse Practitioner Psych/Mental Health 05/10/17 Reanna Smith, RD [facility] [address] [place] [address] Shaker Washer Dietitian, Registered 07/25/19 Roshni Nascimento, RN Personal Advocate & Liaison (PAL) Family Medicine 08/18/20 Kiet Swain MD [facility] [place] [address] Referring Physician Psychiatry 09/19/20 Winsome Pike APRN CNP [address] 765594 Nurse Practitioner Psychiatry 09/19/20 Tori Hines, [facility] 2450 [place], [place] 386994 Director Digital Catalogue Director Digital Catalogue - Clinical 09/19/20 Miranda Queen [facility] [address] [place] [address] Pharmacist Pharmacist 11/12/20 Marisel Armando MD 9 [place], [place] 597965 Gastroenterology 02/05/21 Marisel Armando MD [address] [place] [address] 454175 Assigned Gastroenterology Provider 03/08/21 12/24/22 Wesley Barrett MD 420 [facility] 96 [place], [place] 479025 Assigned Neuroscience Provider 05/10/21 [place] [address] [place] [address] Assigned PCP 05/15/22 Katiana Read MD [address] [address] Assigned Endocrinology Provider 06/19/22 Meme [place] [address] [place] [address] Assigned Behavioral Health Provider 07/03/22 12/31/22 Deena Garza APRN ENVIRONMENTAL PROTECTION ECONOMIST [address] [place] [address] Assigned Pain Medication Provider 07/19/22 10/29/22 Mary Del Cid, [place] [address] [place] [address] Nurse Practitioner Nurse Practitioner 10/18/22 Elham Stack, [facility] 30[address] [place] [address] Pharmacist Pharmacist 10/19/22 Michelle Guzman, DPM, Podiatry/Foot and Ankle Surgery [address] [place] [address] Assigned Musculoskeletal Provider 10/16/22 04/08/23 documented as of this encounter
--- OUTSIDE RECORDS SUMMARY | 2023-08-03 12:45 | XMS_ITS | Encounter Summary ---
Author Name Unknown Organization [facility] Address [address] [place] [address] [address] Care Team Providers Care Charge Entry Name Role Phone Jovany Gonzalez MD Unavailable CrissyStaci jeong NP Unavailable [phone] Unavailable Roshni Nascimento RN Unavailable Unavailable Kiet Swain MD Unavailable [phone] Winsome Pike APRN TITLE I ASSISTANT Unavailable [phone] Tori HinesSW Unavailable Miranda Queen [facility] Unavailable Unavailable Marisel Armando MD Unavailable Marisel Armando MD Unavailable Wesley Barrett MD Unavailable [phone] Dyan Fuentes MD Primary Care Provider [phone] Dyan Fuentes MD Unavailable [phone] Katiana Read MD Unavailable [phone] Meme Singleton PhD Unavailable [phone] Deena Garza SERVICER TRAVEL TRAILERS TITLE I ASSISTANT Unavailable [phone] Mary Del Cid ELECTRONIC OPERATOR Unavailable [phone] [facility] Unavailable [phone] Michelle Guzman DPM, Podiatry /Foot and Ankle [...] do you attend [facility] or anglican services? 1 to 4 times [...] Answer Date Recorded PHQ-2 Score 2 10/25/2022 [facility] [place] of Occupat ional Health - Occupational Stress [...] st Contact Info) Description 08/18/2023 3:00 PM REHAB CARE ASSISTANT Office Visit [place] [address] [place] [address] Katiana Read MD [address] [facility] 200 [place] [address] documented as of this encounter Visit Diagnoses Not on filedocumented in this encounter Additional Health Concerns Infection Onset Date Last Indicated Resolved Time C-difficile 10/15/2022 10/27/2022 11/26/2022 11:4 0 PM CDT Rule Out C-difficile 10/26/2022 10/27/2022 023 2:14 AM CDT Assessment Noted Time PHQ-9 Depression Total Score: 10 023 2:06 PM CDT documented as of this encounter Care Teams Charge Entry Relationship Specialty [place] [address] [place] [address] PCP - General Family Medicine 05/18/22 Jovany Gonzalez MD [facility] 6600 [facility] 605 [place] [address] Orthopedics 02/15/17 Staci Woodward, ELECTRONIC OPERATOR [place] [address] [place] [address] Nurse Practitioner Nurse Practitioner Psych/Mental Health 05/10/17 Reanna Smith, RD [place] [address] [place] [address] Hosiery Operator Dietitian, Registered 07/25/19 Roshni Nascimento, RN Personal Advocate & Liaison (PAL) Family Medicine 08/18/20 Kiet Swain MD [facility]0 [facility] NG15 [place], [place] [address] Referring Physician Psychiatry 09/19/20 Winsome Pike APRN TITLE I ASSISTANT [address] [place], [place] 88[address] Nurse Practitioner Psychiatry 09/19/20 Tori Hines, [facility] 2450 [place], [place] 591064 Shipping Clerk/Admin Shipping Clerk/Admin - Clinical 09/19/[address] [facility] [address] [place] [address] Pharmacist Pharmacist 11/12/20 Marisel Armando MD [address] [place] [address] 077095 Gastroenterology 02/05/21 Marisel Armando MD [address] [place] [address] 158545 Assigned Gastroenterology Provider 03/08/21 12/24/22 Wesley Barrett MD [address] [place] [address] 96 [place] [address] Assigned Neuroscience Provider 05/10/21 [place] [address] [place], [place] 6300844 Assigned PCP 05/15/22 Katiana Read MD [address] [facility] 200 [place], [place] 66[address] Assigned Endocrinology Provider 06/19/22 Meme Singleton, PhD [address] [place] [address] Assigned Behavioral Health Provider 07/03/22 12/31/22 Deena Garza, SERVICER TRAVEL TRAILERS TITLE I ASSISTANT [address] [facility] [address] Assigned Pain Medication Provider 07/19/22 10/29/22 Mary Del Cid, [place] [address] [facility] [place] [address] Nurse Practitioner Nurse Practitioner 10/18/22 Elham Stack, [facility] [address] [facility] [place], [place] [address] Pharmacist Pharmacist 10/19/22 Michelle Guzman DPM, Podiatry/Foot and Ankle Surgery [address] [place] [address] Assigned Musculoskeletal Provider 10/16/22 04/08/23 documented as of this encounter
--- OUTSIDE RECORDS SUMMARY | 2023-08-03 12:45 | XMS_ITS | Encounter Summary ---
Author Name Unknown Organization [facility] Address [address] [place] [address]. [place] [address] Care Team Providers Care Electronic Parts Salesperson Name Role Phone Jovany Gonzalez MD Unavailable CrissyStaci jeong NP Unavailable [phone] Unavailable [phone] Roshni Nascimento RN Unavailable Unavailable Kiet Swain MD Unavailable [phone] Winsome Pike APRN UI DEVELOPER DESIGNER Unavailable [phone] Tori HinesSW Unavailable Miranda Queen [facility] Unavailable Unavailable Marisel Armando MD Unavailable Marisel Armando MD Unavailable Wesley Barrett MD Unavailable [phone] Dyan Fuentes MD Primary Care Provider [phone] Dyan Fuentes MD Unavailable [phone] Katiana Read MD Unavailable [phone] Meme Singleton PhD Unavailable [phone] Deena Garza YARN MERCERIZER OPERATOR HELPER UI DEVELOPER DESIGNER Unavailable [phone] Mary Del Cid LITHOPLATE MAKER Unavailable Elham Stack [facility] Unavailable [phone] Michelle Guzman DPM, Podiatry /Foot and Ankle Surgery Unavailable Reason for Visit * Reason Onset Date Comments Outreach 10/18/2022 IP follow up Encounter Details Date Type Department Care Team (Late st Contact Info) Description 10/18/2022 Telephone [facility] [address] [place] [address] [place] [address] [place] [address] Outreach (IP follow up ) [...] you attend chur ch or anabaptism services? 1 to 4 times per year [...] Answer Date Recorded PHQ-2 Score 0 06/14/2022 [facility] of Occupat ional Health - Occupational [...] in a correction (including now)? No 10/16/2021 Education Answer Date [...] st Contact Info) Description 08/18/2023 3:00 PM FLUE BLOWER Office Visit [facility] [address] [place] [address] Katiana Read MD [address] [facility] 200 [place] [address] documented as of this encounter Visit Diagnoses Not on filedocumented in this encounter Additional Health Concerns Infection Onset Date Last Indicated Resolved Time C-difficile 10/15/2022 10/27/2022 11/26/2022 11:4 0 PM CDT Assessment Noted Time PHQ-9 Depression Total Score: 13 022 3:28 PM FLUE BLOWER documented as of this encounter Care Teams Electronic Parts Salesperson Relationship Specialty [place] [address] [place] [address] PCP - General Family Medicine 05/18/22 Jovany Gonzalez MD [facility] [address] [facility] [address] [place], [place] 0[address] Orthopedics 02/15/17 Staci Woodward, LITHOPLATE MAKER [place] [address] [place] [address] Nurse Practitioner Nurse Practitioner Psych/Mental Health 05/10/17 Reanna Smith, RD [facility] [address] [place], [place] 560417 Presales Senior Specialist Dietitian, Registered 07/25/19 Roshni Nascimento, RN Personal Advocate & Liaison (PAL) Family Medicine 08/18/20 Kiet Swain MD [address] [place], [place] [address] [place], [place] [address] Referring Physician Psychiatry 09/19/20 Winsome Pike APRN UI DEVELOPER DESIGNER [address] [place] [address] Nurse Practitioner Psychiatry 09/19/20 Tori Hines, [facility] [address] [place] [address] Carbon Furnace Operator Carbon Furnace Operator - Clinical 09/19/20 RichardcoriMiranda scott [facility] [address] [place] [address] Pharmacist Pharmacist 11/12/20 Marisel Armando MD [address] [place] [address] Gastroenterology 02/05/21 Marisel Armando MD [address] [place] [address] Assigned Gastroenterology Provider 03/08/21 12/24/22 Wesley Barrett MD [address] [place] [address] Assigned Neuroscience Provider 05/10/21 [place] [address] [place] [address] Assigned PCP 05/15/22 Katiana Read MD [address] [place] [address] Assigned Endocrinology Provider 06/19/22 [place] [address] [place] [address] Assigned Behavioral Health Provider 07/03/22 12/31/22 Deena Garza APRN UI DEVELOPER DESIGNER [address] [place] 545737 Assigned Pain Medication Provider 07/19/22 10/29/22 [place] [address] [place] 001267 Nurse Practitioner Nurse Practitioner 10/18/22 Elham Stack, [facility] 3033 [place] [address] Pharmacist Pharmacist 10/19/22 Michelle Guzman DPM, Podiatry/Foot and Ankle Surgery [address] [place] [address] Assigned Musculoskeletal Provider 10/16/22 04/08/23 documented as of this encounter
--- OUTSIDE RECORDS SUMMARY | 2023-08-03 12:45 | XMS_ITS | Encounter Summary ---
Author Name Unknown Organization [facility] Address [address] [place] [address]. [place] [address] Care Team Providers Care Anglesmith Helper Name Role Phone Jovany Gonzalez MD Unavailable [phone] CrissyStaci jeong NP Unavailable [phone] Unavailable [phone] Roshni Nascimento RN Unavailable Unavailable Kiet Swain MD Unavailable [phone] Winsome Pike APRN STAMP PAD FINISHER Unavailable +[phone] Tori HinesSW Unavailable Miranda Queen [facility] Unavailable Unavailable Marisel Armando MD Unavailable Marisel Armando MD Unavailable Wesley Barrett MD Unavailable [phone] Dyan Fuentes MD Primary Care Provider [phone] Dyan Fuentes MD Unavailable +[phone] Katiana Read MD Unavailable [phone] Meme Singleton PhD Unavailable [phone] Deena Garza ARCHITECTURE CONSULTANT STAMP PAD FINISHER Unavailable [phone] Mary Del Cid CNC MACHINIST Unavailable [phone] Elham Stack [facility] Unavailable [phone] Michelle Guzman DPM, Podiatry /Foot and Ankle Surgery Unavailable Reason for Visit * Reason Comments Nausea, Vomiting, & Diarrhea Encounter Details Date Type Department Care Team (Late st Contact Info) Description 10/25/2022 3:49 PM CDT - 10/25/2022 6:47 PM CDT Emergency [facility] Emergency Dept [address] [place] [address] Ace Perkins MD [facility] [address] [place] [address] Discharge Disposition: Left Without Being Seen Social [...] Answer Date Recorded PHQ-2 Score 2 10/25/2022 [facility] - Occupational Stress Questionnaire Answer Date [...] 2 times daily 0 Continuous Blood Gluc Director Part (DEXCOM G6 STRIPPER OPAQUER) DEVIIndications:Type 2 diabetes mellitus without complication, with [...] (NARCAN) nasal sprayIndications:At risk for substance overdose Ramer 1 spray (4 mg) into one nostril alternating nostrils as needed 0.2 mL 0 11/19/2016 11/11/2022 nystatin (MYCOSTATIN) 096417 UNIT/GM external ointmentIndications:S kin rash Apply topically [...] 10/17/2022 10/28/2022 vitamin D3 (CHOLECALCIFEROL) 1.25 MG (58151 UT) capsuleIndications:Vi tamin D deficiency Take 50,000 [...] st Contact Info) Description 08/18/2023 3:00 PM SADDLE CUTTER Office Visit [facility] [address] [place] [address] Katiana Read MD [address] [place], [place] [address] documented as of this encounter Procedures Procedure [...] Red Top Tube (10/25/2022 4:08 PM CDT) [facility] Signature Hold Specimen [facility] 10/25/2022 5:31 PM CDT RH LABORATORY Blood STRUCTURE OF LEFT UPPER LIMB / Unknown Venipuncture / Unknown 10/25/2022 4:08 PM CDT 10/25/2022 4:18 PM CDT Ace Perkins MD LAB - BLOOD ORDERA BLES [facility] Acute Care Lab [address] [employer] Lab (1st floor, no room number) [place] [address], [facility] [phone] * Extra Blue Top Tube (10/25/2022 4:08 PM CDT) [facility] Signature Hold Specimen [facility] 10/25/2022 5:31 PM CDT LABORATORY Blood STRUCTURE OF LEFT UPPER LIMB / Unknown Venipuncture / Unknown 10/25/2022 4:08 PM CDT 10/25/2022 4:18 PM CDT Ace Perkins MD LAB - BLOOD ORDERA BLES [facility] Lab [address] Lab (1st floor, no room number) [place] [address], [facility] [phone] * (ABNORMAL) CBC with platelets and differential (10/25/2022 4:08 PM CDT) [facility] Signature WBC Count 4.7 4.0 - 11.0 [...] MD LAB - BLOOD ORDERA BLES LABORATORY [facility] Acute Care Lab [address] Lab (1st floor, no room number) [place] [address], [facility] [phone] * (ABNORMAL) Basic metabolic panel (10/25/2022 4:08 [...] MD LAB - BLOOD ORDERA BLES LABORATORY [facility] Acute Care Lab [address] Lab (1st floor, no room number) [place] [address], [facility] [phone] documented in this encounter Visit Diagnoses Not on filedocumented in this encounter Additional Health Concerns Infection Onset Date Last Indicated Resolved Time C-difficile 10/15/2022 10/27/2022 11/26/2022 11:4 0 PM CDT Assessment Noted Time PHQ-9 Depression Total Score: 10 023 2:06 PM CDT documented as of this encounter Care Teams Anglesmith Helper Relationship Specialty [place] [address] [place] [address] PCP - General Family Medicine 05/18/22 Jovany Gonzalez MD [facility] [address] [facility] [address] [place] [address] Orthopedics 02/15/17 Staci Woodward NP [place] [address] [place], [place] 6[address] Nurse Practitioner Nurse Practitioner Psych/Mental Health 05/10/[address] [facility] [address] [place] [address] Packing Machine Inspector Dietitian, Registered 07/25/19 Roshni Nascimento, RN Personal Advocate & Liaison (PAL) Family Medicine 08/18/20 Kiet Swain MD [address] [place], [place] [address] [place], [place] [address] Referring Physician Psychiatry 09/19/20 Winsome Pike APRN STAMP PAD FINISHER [address] 001224 Nurse Practitioner Psychiatry 09/19/20 Tori Hines, [facility] [address] [place] [address] 146534 Boom Worker Boom Worker - Clinical 09/19/20 [facility] [address] [place] [address] Pharmacist Pharmacist 11/12/20 Marisel Armando MD [address] [place] [address] 545145 Gastroenterology 02/05/21 Marisel Armando MD [address] [place] [address] 895685 Assigned Gastroenterology Provider 03/08/21 12/24/22 Wesley Barrett MD [address] [place] [address] 96 [place], [place] 831205 Assigned Neuroscience Provider 05/10/21 [place] [address] [place] [address] Assigned PCP 05/15/22 Katiana Read MD [address] [facility] [address] [place], [place] 4[address] Assigned Endocrinology Provider 06/19/22 [place] [address] [address] [place] [address] Assigned Behavioral Health Provider 07/03/22 12/31/22 Deena Garza, ARCHITECTURE CONSULTANT STAMP PAD FINISHER [address] [place] 083297 Assigned Pain Medication Provider 07/19/22 10/29/22 [place] [address] [place] [address] Nurse Practitioner Nurse Practitioner 10/18/22 Elham Stack, [facility] [address] [facility] [place], [place] [address] Pharmacist Pharmacist 10/19/22 Michelle Guzman, DPM, Podiatry/Foot and Ankle Surgery [address] [place] [address] Assigned Musculoskeletal Provider 10/16/22 04/08/23 documented as of this encounter
--- OUTSIDE RECORDS SUMMARY | 2023-08-03 12:45 | XMS_ITS | Encounter Summary ---
Author Name Unknown Organization [facility] Address [address] [place] [address]. [place] [address] Care Team Providers Care Well Service Derrick Worker Name Role Phone Jovany Gonzalez MD Unavailable CrissyStaci jeong NP Unavailable [phone] Unavailable Roshni Nascimento RN Unavailable Unavailable Kiet Swain MD Unavailable [phone] Winsome Pike APRN ACCOUNT DEVELOPMENT ASSOCIATE Unavailable [phone] Tori HinesSW Unavailable Miranda Queen [facility] Unavailable Unavailable Marisel Armando MD Unavailable Marisel Armando MD Unavailable Wesley Barrett MD Unavailable [phone] Dyan Fuentes MD Primary Care Provider [phone] Dyan Fuentes MD Unavailable [phone] Katiana Read MD Unavailable [phone] Meme Singleton PhD Unavailable [phone] Deena Garza BUSINESS INTELLIGENCE DIRECTOR ACCOUNT DEVELOPMENT ASSOCIATE Unavailable [phone] Mary Del Cid HOT METAL MIXER OPERATOR Unavailable Michelle Guzman DPM, Podiatry /Foot and Ankle Surgery Unavailable Reason for Visit * Reason Onset Date Comments Patient Request 10/18/2022 Disclosing medic ation information Encounter Details Date Type Department Care Team (Late st Contact Info) Description 10/18/2022 Telephone [facility] Pain Management [place] [address] [facility] [address] [place], [place] 0[address] [place] [address] [place] 408897 Patient Request (Disclosing medication information) Social History [...] Routing as FYI only Janine Raymundo RN Performance Engineer [facility] * Telephone Encounter - Misty Monroy - 10/18/2022 10:32 AM CDT [facility] Call Center Phone Message May a [...] st Contact Info) Description 08/18/2023 3:00 PM TEXTILE CUTTING MACHINE OPERATOR Office Visit [facility] [address] [place] [address] Katiana Read MD [address] [place] [address] documented as of this encounter Visit Diagnoses Not on filedocumented in this encounter Additional Health Concerns Infection Onset Date Last Indicated Resolved Time C-difficile 10/15/2022 10/27/2022 11/26/2022 11:4 0 PM CDT Assessment Noted Time PHQ-9 Depression Total Score: 13 022 3:28 PM TEXTILE CUTTING MACHINE OPERATOR documented as of this encounter Care Teams Well Service Derrick Worker Relationship Specialty [place] [address] [place] [address] PCP - General Family Medicine 05/18/22 Jovany Gonzalez MD [facility] [address] [facility] [address] [place] [address] Orthopedics 02/15/17 Staci Woodward, HOT METAL MIXER OPERATOR [place] [facility] [address] [place], [place] [address] Nurse Practitioner Nurse Practitioner Psych/Mental Health 05/10/17 Reanna Smith, RD [place] [address] [place], [place] [address] Corporate Staff Accountant Dietitian, Registered 07/25/19 Roshni Nascimento, RN Personal Advocate & Liaison (PAL) Family Medicine 08/18/20 Kiet Swain MD [address] [facility] [address] [place], [place] 3[address] Referring Physician Psychiatry 09/19/20 Winsome Pike APRN ACCOUNT DEVELOPMENT ASSOCIATE [address] [place] [address] 670194 Nurse Practitioner Psychiatry 09/19/20 Tori Hines, [facility] 2450 [place] [address] Casting Machine Service Operator Casting Machine Service Operator - Clinical 09/19/20 RichardcoriMiranda scott [facility] [address] [place] [address] Pharmacist Pharmacist 11/12/20 Marisel Armando MD [address] [place] [address] Gastroenterology 02/05/21 Marisel Armando MD [address] [place] [address] Assigned Gastroenterology Provider 03/08/21 12/24/22 Wesley Barrett MD [address] [place] [address] 96 [place] [address] Assigned Neuroscience Provider 05/10/21 [place] [address] [place] [address] Assigned PCP 05/15/22 Katiana Read MD [address] [address] Assigned Endocrinology Provider 06/19/22 [place] [address] [place] [place] 97[address]57 Assigned Behavioral Health Provider 07/03/22 12/31/22 Deena Garza APRN ACCOUNT DEVELOPMENT ASSOCIATE [address] 604697 Assigned Pain Medication Provider 07/19/22 10/29/22 [place] [address] [place] [address] Nurse Practitioner Nurse Practitioner 10/18/22 Michelle Guzman DPM, Podiatry/Foot and Ankle Surgery [address] [place] [address] Assigned Musculoskeletal Provider 10/16/22 04/08/23 documented as of this encounter
--- OUTSIDE RECORDS SUMMARY | 2023-08-03 12:46 | XMS_ITS | Encounter Summary ---
Author Name Unknown Organization [facility] Address [address] [place] [address]. [place] [address] Care Team Providers Care Business Services Director Name Role Phone Jovany Gonzalez MD Unavailable CrissyStaci jeong NP Unavailable [phone] Unavailable Roshni Nascimento RN Unavailable Unavailable Kiet Swain MD Unavailable [phone] Winsome Pike APRN FIELD AUTO APPRAISER Unavailable [phone] Tori HinesSW Unavailable Miranda Queen [facility] Unavailable Unavailable Marisel Armando MD Unavailable Marisel Armando MD Unavailable Wesley Barrett MD Unavailable [phone] Dyan Fuentes MD Primary Care Provider [phone] Dyan Fuentes MD Unavailable [phone] Katiana Read MD Unavailable [phone] Meme Singleton PhD Unavailable [phone] Deena Garza RESIDENTIAL REMODELING SUBCONTRACTOR FIELD AUTO APPRAISER Unavailable [phone] Mary Del Cid RENTAL SALES REPRESENTATIVE Unavailable [phone] Michelle Guzman DPM, Podiatry /Foot and Ankle [...] Answer Date Recorded PHQ-2 Score 0 06/14/2022 [facility] [place] of Occupat ional Health - Occupational Stress [...] st Contact Info) Description 08/18/2023 3:00 PM SCREENER OPERATOR Office Visit [facility] [address] [place] [address] Katiana Read MD [address] [place], [place] [address] documented as of this encounter Visit Diagnoses Not on filedocumented in this encounter Additional Health Concerns Infection Onset Date Last Indicated Resolved Time C-difficile 10/15/2022 10/27/2022 11/26/2022 11:4 0 PM CDT Assessment Noted Time PHQ-9 Depression Total Score: 13 022 3:28 PM SCREENER OPERATOR documented as of this encounter Care Teams Business Services Director Relationship Specialty [place] [address] [place] [address] PCP - General Family Medicine 05/18/22 Jovany Gonzalez MD [facility] [address] [facility] [address] [place], [place] [address] Orthopedics 02/15/17 Staci Woodward, RENTAL SALES REPRESENTATIVE [place] [address] [place], [place] [address]23[address] Nurse Practitioner Nurse Practitioner Psych/Mental Health 05/10/17 Reanna Smith, RD [place] [address] [place] [address] Cutter Head Sharpener Dietitian, Registered 07/25/19 Roshni Nascimento, RN Personal Advocate & Liaison (PAL) Family Medicine 08/18/20 Kiet Swain MD [address] [facility] [address] [place] [address] Referring Physician Psychiatry 09/19/20 Winsome Pike APRN FIELD AUTO APPRAISER [address] 895944 Nurse Practitioner Psychiatry 09/19/20 Tori Hines, [facility] 2450 [place], [place] 5[address] Gimp Buttonhole Machine Operator Gimp Buttonhole Machine Operator - Clinical 09/19/20 Miranda Queen, [facility] [address] [place] [address] Pharmacist Pharmacist 11/12/20 Marisel Armando MD [address] [place] [address] 273695 Gastroenterology 02/05/21 Marisel Armando MD [address] [place] [address] 118775 Assigned Gastroenterology Provider 03/08/21 12/24/22 Wesley Barrett MD [address] [place] [address] 393265 Assigned Neuroscience Provider 05/10/21 [place] [address] [place] [address] Assigned PCP 05/15/22 Katiana Read MD [address] [place] [address] Assigned Endocrinology Provider 06/19/22 [place] [address] [place] [address] Assigned Behavioral Health Provider 07/03/22 12/31/22 Deena Garza APRN FIELD AUTO APPRAISER [address] [place] [address] Assigned Pain Medication Provider 07/19/22 10/29/22 Mary Del Cid, [place] [address] [place] [place] [address] Nurse Practitioner Nurse Practitioner 10/18/22 Michelle Guzman DPM, Podiatry/Foot and Ankle Surgery [address] [facility] [place] [address] Assigned Musculoskeletal Provider 10/16/22 04/08/23 documented as of this encounter
--- OUTSIDE RECORDS SUMMARY | 2023-08-03 12:46 | XMS_ITS | Encounter Summary ---
Author Name Unknown Organization [facility] Address [address] [place] [address]. [place] [address] Care Team Providers Care Field Instructor Name Role Phone Jovany Gonzalez MD Unavailable CrissyStaci jeong RADIATION PHYSICIST Unavailable [phone] Unavailable Roshni Nascimento RN Unavailable Unavailable Kiet Swain MD Unavailable [phone] Winsome Pike APRN CLINICAL AUDIOLOGIST Unavailable [phone] Tori Hines [facility] Unavailable Miranda Queen [facility] Unavailable Unavailable Marisel Armando MD Unavailable Marisel Armando MD Unavailable Wesley Barrett MD Unavailable [phone] Charles Jaramillo PA-C Unavailable [phone] Dyan Fuentes MD Primary Care Provider [phone] Dyan Fuentes MD Unavailable [phone] Katiana Read MD Unavailable [phone] Meme Singleton PhD Unavailable [phone] Deena Garza PATENT PARALEGAL CLINICAL AUDIOLOGIST Unavailable [phone] Mary Del Cid NP Unavailable + [phone] Elham Stack [facility] Unavailable [phone] [place], Emerita Alisha [facility] Unavailable [phone] Mary Del Cid NP Unavailable [phone] Michelle Guzman DPM, Podiatry /Foot and Ankle Surgery Unavailable Dyan Fuentes MD Unavailable [phone] Mary Del Cid NP Unavailable + [phone] Aubrey Jones MD Unavailable [phone] Blanquita Morales Unavailable Unavailable Aubrey Jones MD Unavailable [phone] Encounter Details Date Type Department Care Team (Late st Contact Info) Description 10/14/2022 [facility] Medical Advice [address] [address] Roshni Nascimento, RN Social History [...] Date Recorded PHQ-2 Score 0 06/14/2022 [facility] - Occupational Stress [...] st Contact Info) Description 08/18/2023 3:00 PM PIPE AND TANK FABRICATOR Office Visit [facility] [address] [facility] [place] [address] [place] [address] Katiana Read MD [address] [place] [address] documented as of this encounter [...] Depression Total Score: 13 022 3:28 PM PIPE AND TANK FABRICATOR documented as of this encounter Care Teams Field Instructor Relationship Specialty [place] [address] [place] [address] PCP - General Family Medicine 05/18/22 Jovany Gonzalez MD [facility] [address] [facility] [address] [place], [place] [address] Orthopedics 02/15/17 Staci Woodward, RADIATION PHYSICIST [place] [address] [place], [place] [phone] Nurse Practitioner Nurse Practitioner Psych/Mental Health 05/10/17 Reanna Smith, RD [facility] [address] [place], [place] [address] Environmental Epidemiologist Dietitian, Registered 07/25/19 Roshni Nascimento, RN Personal Advocate & Liaison (PAL) Family Medicine 08/18/20 Kiet Swain MD [address] [place] [address] [id number] Referring Physician Psychiatry 09/19/20 Winsome Pike APRN CLINICAL AUDIOLOGIST [facility] [address] [address] Nurse Practitioner Psychiatry 09/19/20 Tori Hines, [facility] [address] [place] [address] Stereoplotter Operator Stereoplotter Operator - Clinical 09/19/20 Miranda Queen [facility] [address] [place] [address] Pharmacist Pharmacist 11/12/20 Marisel Armando MD 909 [place] [address] Gastroenterology 02/05/21 Marisel Armando MD [address] [place] [address] Assigned Gastroenterology Provider 03/08/21 12/24/22 Wesley Barrett MD 420 [facility] 96 [place] [address] Assigned Neuroscience Provider 05/10/21 Charles Jaramillo PA-C 6545 [facility] 450 [place], [place] [address] Assigned Musculoskeletal Provider 04/26/21 10/15/22 [place] [address] [place] [address] Assigned PCP 05/15/22 Katiana Read MD [address] [facility] 200 [place], [place] [address] Assigned Endocrinology Provider 06/19/22 Meme [place] PhD [address] [place] [address] Assigned Behavioral Health Provider 07/03/22 12/31/22 Deena Garza APRN CLINICAL AUDIOLOGIST [address] [place] [address] Assigned Pain Medication Provider 07/19/22 10/29/22 Mary Del Cid, RADIATION PHYSICIST [address] [place] [address] Nurse Practitioner Nurse Practitioner 10/18/22 Elham Stack, [facility] 3033 [place] [address] Pharmacist Pharmacist 10/19/22 Emerita Potter, [facility] Clinic Agricultural Commodities Inspector Stereoplotter Operator - Clinical 10/29/22 11/02/22 [place] [address] [place] [address] Assigned Pain Medication Provider 10/30/22 12/03/22 Michelle Guzman, DPM, Podiatry/Foot and Ankle Surgery [address] [place] [address] Assigned Musculoskeletal Provider 10/16/22 04/08/23 [place] [address] [place] [address] Assigned Pain Medication Provider 12/04/22 04/01/23 [place] [address] [place] [address] Nurse Practitioner Nurse Practitioner 01/17/23 01/17/23 Aubrey Jones MD [address] [place] [address] Cardiovascular Disease 03/28/23 Blanquita Morales Environmental Epidemiologist Diabetes Education 04/25/23 Aubrey Jones MD [address] [place] 810555 Assigned Heart and Vascular Provider 05/07/23 documented as of this encounter
--- OUTSIDE RECORDS SUMMARY | 2023-08-03 12:46 | XMS_ITS | Encounter Summary ---
Author Name Unknown Organization [facility] Address [address] [place] [address]. [place] [address] Care Team Providers Care Form Tamping Machine Operator Name Role Phone Jovany Gonzalez MD Unavailable CrissyStaci jeong ARCHAEOLOGY PROFESSOR Unavailable [phone] Unavailable Roshni Nascimento RN Unavailable Unavailable Kiet Swain MD Unavailable [phone] Winsome Pike APRN PREPRESS SPECIALIST Unavailable [phone] Tori Hines [facility] Unavailable Miranda Queen [facility] Unavailable Unavailable Marisel Armando MD Unavailable Marisel Armando MD Unavailable Wesley Barrett MD Unavailable [phone] Charles Jaramillo PA-C Unavailable [phone] Dyan Fuentes MD Primary Care Provider [phone] Dyan Fuentes MD Unavailable [phone] Katiana Read MD Unavailable [phone] Meme Singleton PhD Unavailable [phone] Deena Garza AEROSPACE MECHANIC PREPRESS SPECIALIST Unavailable [phone] Michelle Guzman DPM, Podiatry /Foot and Ankle Surgery Unavailable Reason for Referral * Med Therapy Management (Routine) - Pending Review Specialty Diagnoses / Procedures Referred By Jose R kelly Referred To Contact Pharmacist Diagnoses Nausea and vomiting, unspecified vomiting type Janine Del Rosario PA-C [address] [place] [address] Referral ID Status Reason Start Date Expiration Date V isits Requested Visits Authorized [id number] Pending Review 10/16/2022 10/16/2023 1 1 Scheduling Instructions MTM referral reason Total Score: 2 Patient had a hospital or ED visit in last 6 months and has more than 10 ENFORCEMENT MANAGER or Discharge medications Patient has 5 ENFORCEMENT MANAGER or Discharge Medications AND one of [...] Diagnoses / Procedures Referred By Jose R kelyl Referred To Contact EMERGENCY MEDICINE Diagnoses Nausea and vomiting, unspecified vomiting type Pancolitis (H) Nausea and vomiting, unspecified vomiting type Emergency Dept [address] [place] [address] Referral ID Status Reason Start Date Expiration Date Visits Re quested Visits Authorized [id number] 1 1 Encounter Details Date Type Department Care Team (Late st Contact Info) Description 10/14/2022 8:48 PM CDT - 10/17/2022 1:36 PM CDT Hospital Encounter [facility] Observation Dept [address] [place] [address] Elina Reese PA-C [facility] [address] [place], [place] [id number] Brant Herrera, DO [address] [place] [address] Ino Hernandez MD [facility] [address] [place], [place] [id number] C. difficile colitis (Primary Dx); Pancolitis (H); [...] often do you attend chur ch or synagogue services? 1 to 4 times [...] Answer Date Recorded PHQ-2 Score 0 [facility]/14[facility]2022 [facility] - Occupational Stress [...] from the original note were not included. [facility] Discharge Summary Kaila Hernandez Date of : [...] diet today, CLD--> ADAT - OPn Baslagar ENFORCEMENT MANAGER, will resume lantus at 5u tonight then titrate up as po intake improves -resume home metoprolol, statin, , norvasc ?? Hypokalemia/Hypomagnesemia - Resume ENFORCEMENT MANAGER Potassium - Replace via electrolyte protocol ?? [...] Bacteria and Virus Panel by DOMINICK Stool [[id number]] (Abnormal) Stool from Per Rectum Final result [...] C. difficile Antigen and Toxins A/B EIA [[id number]] (Abnormal) Stool from Per Rectum Final result [...] Antigen and Toxins A/B by Enzyme Immunoassay [[id number]] (Abnormal) Stool from Per Rectum Final result [...] mouth 2 times daily Continuous Blood Gluc Safety Representative (DEXCOM G6 NEURODIAGNOSTIC TECHNOLOGIST) ANITA USE DAILY Qty: 1 each, Refills: [...] Benign essential hypertension naloxone (NARCAN) nasal spray Milton 1 spray (4 mg) into one nostril alternating nostrils as needed Qty: 0.2 mL, Refills: 0 Associated Diagnoses: At risk for substance overdose nitroGLYcerin (NITROSTAT) 0.[address] 1 tablet (0.4 mg) under the tongue every 5minutes as needed for chest pain Qty: 25 tablet, Refills: 0 Associated Diagnoses: Chest pain, unspecified type nystatin (MYCOSTATIN) 373429 UNIT/GM external ointment Apply topically 2 times [...] goal <100 vitamin D3 (CHOLECALCIFEROL) 1.25 MG (38858 UT) capsule Take 50,000 Units by mouth [...] EXAM: CT ABDOMEN PELVIS W CONTRAST LOCATION: [facility] DATE/TIME: 10/14/2022 10:45 PM INDICATION: Generalized [...] 2 times daily 0 Continuous Blood Gluc Safety Representative (DEXCOM G6 NEURODIAGNOSTIC TECHNOLOGIST) DEVIIndications:Type 2 diabetes mellitus without complication, with [...] (NARCAN) nasal sprayIndications:At risk for substance overdose Milton 1 spray (4 mg) into one nostril alternating nostrils as needed 0.2 mL 0 11/19/2016 11/11/2022 nystatin (MYCOSTATIN) 120954 UNIT/GM external ointmentIndications:S kin rash Apply topically [...] 10/17/2022 10/28/2022 vitamin D3 (CHOLECALCIFEROL) 1.25 MG (49186 UT) capsuleIndications:Vi tamin D deficiency Take 50,000 [...] Return to near baseline physical activity: No One Piece Expansion Maker Hand Nurse Safe discharge environment identified: Yes Barriers [...] Rosario PA-C - 10/16/2022 5:34 PM CDT [facility] Hospitalist Progress Note Janine Del Rosario PA-C [...] diet today, CLD--> ADAT - OPn Baslagar ENFORCEMENT MANAGER, will resume lantus at 5u tonight then titrate up as po intake improves -resume home metoprolol, statin, , norvasc Hypokalemia/Hypomagnesemia - Resume ENFORCEMENT MANAGER Potassium - Replace via electrolyte protocol Diet:?CLD [...] EXAM: CT ABDOMEN PELVIS W CONTRAST LOCATION: [facility] DATE/TIME: 10/14/2022 10:45 PM INDICATION: Generalized [...] page SW if needs/concerns arise. Riana Bynum STORAGE ENGINEER, [facility][NOTE 3] Inpatient Care Coordination [facility] [phone] * Luis Alfonso MD - 10/15/2022 1:45 PM CDT [facility] Hospitalist Progress Note Provider : Luis [...] EXAM: CT ABDOMEN PELVIS W CONTRAST LOCATION: [facility] DATE/TIME: 10/14/2022 10:45 PM INDICATION: Generalized [...] Brant Herrera, - 10/14/2022 11:53 PM CDT [facility] History and Physical - Hospitalist Service [...] full code Brant Herrera DO Hospitalist Service [facility] Securely message with [employer] (more info) Text page via [employer] Paging/Directory Chief Complaint Diarrhea, [place] History of [...] ARTHROSCOPY; Surgeon: Jovany Gonzalez MD; Location: [facility];Service: ??? BACK SURGERY Lumbar and cervical [...] FIBULAR FRACTURE; Surgeon: Jovany Gonzalez MD; Location: [facility] OR; Service: ??? rectocele and cystocel repairs ??? REMOVE HARDWARE LOWER EXTREMITY Right 12/13/2017 Procedure: REMOVAL OF SYNDESMOSIS SCREWS, SUHAS; Surgeon: Jovany Gonzalez MD; Location: [facility] Main OR; Service: ??? REPAIR RECTOCELE ??? TONSILLECTOMY ??? ZZC NONSPECIFIC PROCEDURE 06/2001 Colonoscopy - neg -- abstracted 12/26/01 Prior to Admission Medications Prior to Admission Medications Prescriptions Last Dose Informant Patient Reported? Taking? Continuous Blood Gluc Safety Representative (DEXCOM G6 NEURODIAGNOSTIC TECHNOLOGIST) ANITA No No Sig: USE DAILY Continuous Blood Gluc Sensor (DEXCOM G6 SENSOR) [facility] No No Sig: USE 1 SENSOR EVERY 10 DAYS Continuous Blood Gluc Transmit (DEXCOM G6 TRANSMITTER) [facility] No No Sig: Change every 3 months [...] (NARCAN) nasal spray Pharmacy No No Sig: Milton 1 spray (4 mg) into one nostril alternating nostrils as needed nitroGLYcerin (NITROSTAT) 0.4 MG sublingual tablet Self No No Sig: Place 1 tablet (0.4 mg) under the tongue every 5 minutes as needed for chest pain nystatin (MYCOSTATIN) 218005 UNIT/GM external ointment No No Sig: Apply [...] mouth daily vitamin D3 (CHOLECALCIFEROL) 1.25 MG (39140 UT) capsule Yes No Sig: Take 50,000 [...] EXAM: CT ABDOMEN PELVIS W CONTRAST LOCATION: [facility] DATE/TIME: 10/14/2022 10:45 PM INDICATION: Generalized [...] years ago, would recommend daily probiotic long-term. -[facility] will set up outpatient follow-up in [...] call any further questions. Ozzie Michelle MD, [facility] [phone] [facility] Consultation Kaila Hernandez [facility] [facility] [address] 61 year old female Admission Date/Time: 10/14/2022 [...] per film 1 Film ??? calcium carbonate (OS-ALISA) tablet 600 mg ??? desvenlafaxine (PRISTIQ) 24 [...] 1 g tablet ??? Continuous Blood Gluc Safety Representative (DEXCOM G6 NEURODIAGNOSTIC TECHNOLOGIST) ANITA ??? Continuous Blood Gluc Sensor (DEXCOM [...] 0.4 MG sublingual tablet ??? nystatin (MYCOSTATIN) 577301 UNIT/GM external ointment ??? omega-3 acid ethyl esters (LOVAZA) 1 g capsule ??? ondansetron (ZOFRAN ODT) 8 MG ODT tab ??? pantoprazole (PROTONIX) 40 MG EC tablet ??? Potassium Gluconate 595 MG CAPS ??? risperiDONE (RISPERDAL M-TABS) 0.5 MG ODT ??? rosuvastatin (CRESTOR) 40 MG tablet ??? vitamin D3 (CHOLECALCIFEROL) 1.25 MG (77694 UT) capsule PHYSICAL EXAM: BP (!) 172/99 [...] or new concerns develop Sonja Mora, DI[facility] 10/15/2022 12:12 PM [phone] (office) This case was discussed with Dr. Michelle who agrees to the above assessment and plan. 55 minutes of total time was spent providing patient care, including patient evaluation, reviewing documentation/test result, and recorder gravity prospecting. documented in this encounter ED Notes * Trell Bowen RN - 10/15/2022 1:24 AM CDT [facility] ED Nurse Handoff Report Kaila Hernandez is [...] X 1. Lift room needed:No. Bariatric: No Licensed Staff Mft Needed: No Isolation: Yes. Infection: Not Applicable [...] Urine Negative Ketones Urine Trace (*) Specific [place]wood Urine 1.005 Blood Urine Negative pH Urine [...] POS Antibody Screen Negative SPECIMEN EXPIRATION DATE [id number] ENTERIC BACTERIA AND VIRUS PANEL BY DOMINICK [...] guarding No distension. Normal bowel sounds : cook room supervisor present Nurse Natalia, external hemorrhoid with no [...] POS Antibody Screen Negative SPECIMEN EXPIRATION DATE [id number] C. DIFFICILE TOXIN B PCR WITH REFLEX [...] Tests: ED Course as of 10/15/22 0004 [facility] Oct 14, [id number] I greeted the [...] - 10/17/2022 6:26 AM CDT Care from [id number] Inpatient Progress Note: For complete assessment see [...] Return to near baseline physical activity: Yes One Piece Expansion Maker Hand Nurse Safe discharge environment identified: Yes Barriers [...] Return to near baseline physical activity: No One Piece Expansion Maker Hand Nurse Safe discharge environment identified: No Barriers [...] Return to near baseline physical activity: No One Piece Expansion Maker Hand Nurse Safe discharge environment identified: No Barriers [...] Return to near baseline physical activity: No One Piece Expansion Maker Hand Nurse Safe discharge environment identified: No Barriers [...] Return to near baseline physical activity: No One Piece Expansion Maker Hand Nurse Safe discharge environment identified: Yes Barriers [...] via in-person Pertinent Information: Changes made to ENFORCEMENT MANAGER medication list: ??? Added: Rexalti and clonazepam ??? Deleted: Miralax ??? Changed: Risperidone from 0.5 mg qam and 1 mg qpm to 1 mg qd Medication Affordability: Allergies reviewed with patient and updates made in EHR: no Medication History Completed By: Jessica Lipscomb RPH 10/15/2022 12:02 PM ENFORCEMENT MANAGER Med List Medication Sig Last Dose ??? [...] times daily Unknown ??? Continuous Blood Gluc Safety Representative (DEXCOM G6 NEURODIAGNOSTIC TECHNOLOGIST) ANITA USE DAILY Unknown ??? Continuous Blood [...] DAY Unknown ??? naloxone (NARCAN) nasal spray Milton 1 spray (4 mg) into one nostril alternating nostrils as needed Unknown ??? nitroGLYcerin (NITROSTAT) 0.[address] 1 tablet (0.4 mg) under the tongue every 5 minutes as needed for chest pain Unknown ??? nystatin (MYCOSTATIN) 755112 UNIT/GM external ointment Apply topically 2 times [...] Unknown ??? vitamin D3 (CHOLECALCIFEROL) 1.25 MG (56711 UT) capsule Take 50,000 Units by mouth [...] st Contact Info) Description 08/18/2023 3:00 PM ESTIMATOR JEWELRY Office Visit [facility] [address] [place] [address] Katiana Read MD [address] [place] [address] Scheduled Referrals Name Type Priority Associated Diagnoses [...] LAB - BEAKER POCT RH LABORATORY POC [facility] Lab [address] [facility] Lab (1st floor, no room number) [place] [address], [place] [phone] * (ABNORMAL) Glucose by meter (10/17/2022 7:31 AM CDT) GLUCOSE BY METER POCT 104(H) 70 - 99 mg/dL 10/17/2022 7:37 AM CDT RH LABORATORY POC Blood, Capillary BLOOD SPECIMEN / Unknown 10/17/2022 7:31 AM CDT 10/17/2022 7:37 AM CDT Provider Unknown LAB - BEAKER POCT RH LABORATORY POC [facility] Care Lab [address] Lab (1st floor, no room number) [place] [address], [place] [phone] * Potassium (10/17/2022 5:56 AM CDT) Potassium 3.9 3.4 - 5.3 mmol/L 10/17/2022 6:56 AM CDT RH LABORATORY Blood STRUCTURE OF RIGHT HAND / Unknown Venipuncture / Unknown 10/17/2022 5:56 AM CDT 10/17/2022 6:28 AM CDT Janine Del Rosario PA-C LAB - BLOOD ORDER LENA Performing Organization Address City/[facility]/ZIP Co de Phone Number [facility] Care Lab [address] Lab (1st floor, no room number) [place] [address], [place] [phone] * Magnesium (10/17/2022 5:56 AM CDT) Magnesium 2.0 1.7 - 2.3 mg/dL 10/17/2022 6:56 AM CDT RH LABORATORY Blood STRUCTURE OF RIGHT HAND / Unknown Venipuncture / Unknown 10/17/2022 5:56 AM CDT 10/17/2022 6:28 AM CDT Janine Ray Del Rosario PA-C LAB - BLOOD ORDER LENA [facility] Care Lab [address] Lab (1st floor, no room number) [place] [address], [place] [phone] * (ABNORMAL) Glucose by meter (10/17/2022 3:10 AM CDT) GLUCOSE BY METER POCT 137(H) 70 - 99 mg/dL 10/17/2022 3:16 AM CDT RH LABORATORY POC Blood, Capillary BLOOD SPECIMEN / Unknown 10/17/2022 3:10 AM CDT 10/17/2022 3:16 AM CDT Provider Unknown LAB - BEAKER POCT LABORATORY [facility] Lab [address] Lab (1st floor, no room number) [place] [address], [facility] [phone] * (ABNORMAL) Glucose by meter (10/16/2022 10:55 PM CDT) GLUCOSE BY METER POCT 164(H) 70 - 99 mg/dL 10/16/2022 11:02 PM CDT RH LABORATORY POC Comment:Dr/RN Notified Blood, Capillary BLOOD SPECIMEN / Unknown 10/16/2022 10:55 PM CDT 10/16/2022 11:02 PM CDT Provider Unknown LAB - BEAKER POCT LABORATORY [facility] Lab [address] Lab (1st floor, no room number) [place] [address], [facility] [phone] * Potassium (10/16/2022 9:31 PM CDT) Potassium 3.8 3.4 - 5.3 mmol/L 10/16/2022 10:21 PM CDT LABORATORY Blood STRUCTURE OF RIGHT UPPER LIMB / Unknown Venipuncture / Unknown 10/16/2022 9:31 PM CDT 10/16/2022 9:36 PM CDT Janine Del Rosario PA-C LAB - BLOOD ORDER LENA [facility] Acute Care Lab [address] Lab (1st floor, no room number) [place] [address], [facility] [phone] * (ABNORMAL) Magnesium (10/16/2022 9:31 PM CDT) Magnesium 2.4(H) 1.7 - 2.3 mg/dL 10/16/2022 10:21 PM CDT LABORATORY Blood STRUCTURE OF RIGHT UPPER LIMB / Unknown Venipuncture / Unknown 10/16/2022 9:31 PM CDT 10/16/2022 9:36 PM CDT Janine ORTIZ-C LAB - BLOOD ORDER LENA Performing Organization Address City/[facility]/ZIP Co de Phone Number [facility] Care Lab [address] Lab (1st floor, no room number) [place] [address], [facility] [phone] * (ABNORMAL) Hemoglobin A1c (10/16/2022 9:31 PM CDT) Hemoglobin A1C 6.5(H) <5.7 % 10/16/2022 9:52 PM CDT LABORATORY Comment: Normal <5.7% Prediabetes 5.7-6.4% ?? Diabetes 6.5% or higher Note: Adopted from ADA consensus guidelines. Blood STRUCTURE OF RIGHT UPPER LIMB / Unknown Venipuncture / Unknown 10/16/2022 9:31 PM CDT 10/16/2022 9:36 PM CDT Janine Del Rosario PA-C LAB - BLOOD ORDER LENA [facility] Care Lab [address] Lab (1st floor, no room number) [place] [address], [facility] [phone] * EKG 12-lead, tracing only (10/16/2022 6:19 PM CDT) Systolic Blood Pressure mmHg RADIOLOGY RESULTS Diastolic Blood Pressure mmHg RADIOLOGY RESULTS Ventricular Rate 79 BPM RAD IOLOGY RESULTS Atrial Rate 79 BPM RADIOLOG Y RESULTS VT Interval 194 ms RADIOLOG Y RESULTS QRS Duration 96 ms RADIOLO GY RESULTS QT 402 ms RADIOLOGY RESULTS QTc 460 ms RADIOLOGY RESULTS P Mesa 74 degrees RADIOLOGY RESULTS R AXIS 5 degrees RADIOLOGY RESULTS T Mesa 110 degrees RADIOLOGY RESULTS Interpretation ECG Sinus rhythm Anteroseptal infarct , age undetermined Abnormal ECG Confirmed by MD DENICE, MARILY ([id number]), supervising film or videotape editor PAT [place] ([id number]) on 10/19/2022 7:46:10 AM RADIOLOGY RESULTS 10/16/2022 [...] LAB - BEAKER POCT RH LABORATORY POC [facility] Acute [facility] Lab [address] Lab (1st floor, no room number) [place] [address] [phone] * (ABNORMAL) Magnesium (10/16/2022 3:39 PM CDT) Magnesium 1.3(L) 1.7 - 2.3 mg/dL 10/16/2022 4:09 PM CDT LABORATORY Blood STRUCTURE OF RIGHT HAND / Unknown Venipuncture / Unknown 10/16/2022 3:39 PM CDT 10/16/2022 3:48 PM CDT Janine Schrader Del Rosario PA-C LAB - BLOOD ORDER LENA [facility] Lab [address] Lab (1st floor, no room number) [place] [address], [facility] [phone] * (ABNORMAL) Potassium (10/16/2022 3:39 PM CDT) Potassium 3.3(L) 3.4 - 5.3 mmol/L 10/16/2022 4:09 PM CDT LABORATORY Blood STRUCTURE OF RIGHT HAND / Unknown Venipuncture / Unknown 10/16/2022 3:39 PM CDT 10/16/2022 3:48 PM CDT Janine Schrader Carin ORTIZ-C LAB - BLOOD ORDER LENA Performing Organization Address City/[facility]/ZIP Co de Phone Number [facility] Lab [address] Lab (1st floor, no room number) [place] [address], [place] [phone] * (ABNORMAL) Glucose by meter (10/16/2022 12:32 PM CDT) GLUCOSE BY METER POCT 263(H) 70 - 99 mg/dL 10/16/2022 12:39 PM CDT LABORATORY POC Blood, Capillary BLOOD SPECIMEN / Unknown 10/16/2022 12:32 PM CDT 10/16/2022 12:39 PM CDT Provider Unknown LAB - BEAKER POCT [facility] Lab [address] Lab (1st floor, no room number) [place] [address], [place] [phone] * (ABNORMAL) Glucose by meter (10/16/2022 8:54 AM CDT) GLUCOSE BY METER POCT 154(H) 70 - 99 mg/dL 10/16/2022 9:01 AM CDT RH LABORATORY POC Blood, Capillary BLOOD SPECIMEN / Unknown 10/16/2022 8:54 AM CDT 10/16/2022 9:01 AM CDT Provider Unknown LAB - BEAKER POCT RH LABORATORY POC [facility] Care Lab [address] Lab (1st floor, no room number) [place] [address], [facility] [phone] * (ABNORMAL) Magnesium (10/16/2022 7:06 AM CDT) Magnesium 1.4(L) 1.7 - 2.3 mg/dL 10/16/2022 2:42 PM CDT LABORATORY Blood STRUCTURE OF RIGHT HAND / Unknown Venipuncture / Unknown 10/16/2022 7:06 AM CDT 10/16/2022 7:19 AM CDT Janine Del Rosario PA-C LAB - BLOOD ORDER LENA Performing Organization Address City/[facility]/ZIP Co de Phone Number LABORATORY [facility] Lab [address] Lab (1st floor, no room number) [place] [address], [facility] [phone] * (ABNORMAL) Basic metabolic panel (10/16/2022 7:06 [...] LAB - BLOOD OR DERABLES RH LABORATORY [facility] Lab [address] Lab (1st floor, no room number) [place] [address], [facility] [phone] * (ABNORMAL) CBC with platelets (10/16/2022 7:06 [...] MD LAB - BLOOD OR DERABLES LABORATORY [facility] Lab [address] Lab (1st floor, no room number) [place] [id number], [place] [phone] * (ABNORMAL) Glucose by meter (10/16/2022 3:53 AM CDT) GLUCOSE BY METER POCT 155(H) 70 - 99 mg/dL 10/16/2022 4:00 AM CDT LABORATORY POC Blood, Capillary BLOOD SPECIMEN / Unknown 10/16/2022 3:53 AM CDT 10/16/2022 4:00 AM CDT Ino Hernandez MD LAB - NOE [facility] POCT LABORATORY [facility] Lab [address] Lab (1st floor, no room number) [place] [address], [place] [phone] * (ABNORMAL) Glucose by meter (10/16/2022 12:58 AM CDT) GLUCOSE BY METER POCT 159(H) 70 - 99 mg/dL 10/16/2022 1:05 AM CDT LABORATORY POC Blood, Capillary BLOOD SPECIMEN / Unknown 10/16/2022 12:58 AM CDT 10/16/2022 1:05 AM CDT Ino Hernandez MD LAB - NOE KER POCT RH LABORATORY [facility] Care Lab [address] Lab (1st floor, no room number) [place] [id number], [facility] [phone] * (ABNORMAL) Glucose by meter (10/15/2022 9:39 PM CDT) GLUCOSE BY METER POCT 169(H) 70 - 99 mg/dL 10/15/2022 9:46 PM CDT RH LABORATORY POC Blood, Capillary BLOOD SPECIMEN / Unknown 10/15/2022 9:39 PM CDT 10/15/2022 9:46 PM CDT Ino Hernandez MD LAB - NOE [place] POCT LABORATORY [facility] Care Lab [address] Lab (1st floor, no room number) [place] [id number], [facility] [phone] * (ABNORMAL) Glucose by meter (10/15/2022 3:40 PM CDT) GLUCOSE BY METER POCT 172(H) 70 - 99 mg/dL 10/15/2022 3:47 PM CDT LABORATORY POC Blood, Capillary BLOOD SPECIMEN / Unknown 10/15/2022 3:40 PM CDT 10/15/2022 3:47 PM CDT Ino Hernandez MD LAB - NOE [place]OPE[place] POCT LABORATORY [facility] Care Lab [address] Lab (1st floor, no room number) [place] [id number], [facility] [phone] * Lactic acid whole blood (10/15/2022 11:55 AM CDT) Lactic Acid 1.5 0.7 - 2.0 mmol/L 10/15/2022 12:17 PM CDT RH LABORATORY Blood STRUCTURE OF RIGHT HAND / Unknown Venipuncture / Unknown 10/15/2022 11:55 AM CDT 10/15/2022 12:00 PM CDT Brant Herrera DO LAB - BLOOD ORDERABL ES LABORATORY [facility] Care Lab [address] Lab (1st floor, no room number) [place] [id number], [facility] [phone] * (ABNORMAL) Glucose by meter (10/15/2022 11:30 AM CDT) GLUCOSE BY METER POCT 200(H) 70 - 99 mg/dL 10/15/2022 11:43 AM CDT LABORATORY POC Blood, Capillary BLOOD SPECIMEN / Unknown 10/15/2022 11:30 AM CDT 10/15/2022 11:43 AM CDT Ino TOSCANO - NOE LOPEZ POCT Performing Organization Address [facility]/ZIP Co de Phone Number LABORATORY [facility] Care Lab [address] Lab (1st floor, no room number) [place] [address], [facility] [phone] * (ABNORMAL) Glucose by meter (10/15/2022 8:54 AM CDT) GLUCOSE BY METER POCT 185(H) 70 - 99 mg/dL 10/15/2022 9:01 AM CDT LABORATORY POC Blood, Capillary BLOOD SPECIMEN / Unknown 10/15/2022 8:54 AM CDT 10/15/2022 9:01 AM CDT Ino Hernandez MD LAB - NOE [place]OPEZ POCT LABORATORY [facility] Care Lab [address] Lab (1st floor, no room number) [place] [address], [facility] [phone] * Lactic acid whole blood (10/15/2022 7:53 AM CDT) Lactic Acid 1.7 0.7 - 2.0 mmol/L 10/15/2022 8:19 AM CDT RH LABORATORY Blood BLOOD SPECIMEN / Unknown Venipuncture / Unknown 10/15/2022 7:53 AM CDT 10/15/2022 8:14 AM CDT Brant Herrera DO LAB - BLOOD ORDERABL ES RH LABORATORY [facility] Lab [address] [facility] Lab (1st floor, no room number) [place] [address], [facility] [phone] * (ABNORMAL) CBC with platelets (10/15/2022 7:53 [...] DO LAB - BLOOD ORDERABL ES LABORATORY [facility] Lab [address] Lab (1st floor, no room number) [place] [address], [facility] [phone] * (ABNORMAL) Comprehensive metabolic panel (10/15/2022 7:53 [...] [facility] [facility] [address] (1st floor, no room number) [place] [address], [facility] [phone] * (ABNORMAL) Lactic acid whole blood (10/15/2022 2:14 AM CDT) Lactic Acid 5.6(HH) 0.7 - 2.0 mmol/L 10/15/2022 2:26 AM CDT LABORATORY Blood STRUCTURE OF RIGHT HAND / Unknown Venipuncture / Unknown 10/15/2022 2:14 AM CDT 10/15/2022 2:18 AM CDT Elina Reese PA-C LAB - BLOOD ORDER LENA LABORATORY [facility] [address] (1st floor, no room number) [place] [address], [facility] [phone] * (ABNORMAL) Glucose by meter (10/15/2022 1:12 AM CDT) GLUCOSE BY METER POCT 174(H) 70 - 99 mg/dL 10/15/2022 1:18 AM CDT LABORATORY POC Blood, Capillary BLOOD SPECIMEN / Unknown 10/15/2022 1:12 AM CDT 10/15/2022 1:18 AM CDT Brant Herrera DO LAB - BEAKER POCT LABORATORY [facility] Acute Care Lab [address] [facility] Lab (1st floor, no room number) [place] [address], [facility] [phone] * (ABNORMAL) C. difficile Antigen and Toxins [...] - MICRO GENERAL ORDERABLES [facility] Inf. Diseases Diag. Lab [address] [facility], [address] [place] [address], [place] [phone] * (ABNORMAL) C. difficile Toxin B PCR [...] 12:50 AM CDT 10/15/2022 1:22 AM CDT [facility] LAB[facility]AT[facility] - 10/15/2022 5:39 AM CDT The [employer] Mobile Xpert C. difficile Assay, performed on the [employer]?? Instrument Systems, is a qualitative in vitro [...] - MICRO GENERAL ORDERABLES [facility] Inf. Diseases Diag. Lab [address] [facility], [address] [place] [address], [facility] [phone] * (ABNORMAL) Enteric Bacteria and Virus Panel [...] performed by multiplexed, qualitative PCR using the Mor.sl Enteric Pathogens Nucleic Acid Test. Results should [...] MICRO GENER AL ORDERABLES [facility] Inf. Diseases Diag. Lab [address] [facility], [address] [place] [address], [place] [phone] * (ABNORMAL) Lactic acid whole blood (10/14/2022 11:33 PM CDT) [facility] Lactic Acid 5.7(HH) 0.7 - 2.0 mmol/L 10/14/2022 11:50 PM CDT LABORATORY Blood STRUCTURE OF LEFT WRIST REGION / Unknown Venipuncture / Unknown 10/14/2022 11:33 PM CDT 10/14/2022 11:43 PM CDT Elina Reese PA-C LAB - BLOOD ORDER LENA LABORATORY [facility] [address] [facility] Lab (1st floor, no room number) [place] [address], [place] [phone] * (ABNORMAL) UA reflex to Microscopic and Culture (10/14/2022 11:30 PM CDT) Color Urine Yellow Colorless, Straw, Light Yellow, Yellow 10/15/2022 12:42 AM CDT LABORATORY Appearance Urine Cloudy(A) Clear 10/16/19 12:42 AM CDT LABORATORY Glucose Urine Negative Negative mg/dL 10/15/2022 12:42 AM CDT LABORATORY Bilirubin Urine Negative Negative 12:42 AM CDT LABORATORY Ketones Urine Trace(A) Negative mg/dL 10/15/2022 12:42 AM CDT LABORATORY Specific [place] Urine 1.005 1.003 - 1.035 OMI 10/15/2022 [...] PA-C LAB - URINE ORDER LENA LABORATORY [facility] [address] Lab (1st floor, no room number) [place] [address], [facility] [phone] * CT Abdomen Pelvis w Contrast (10/14/2022 [...] EXAM: CT ABDOMEN PELVIS W CONTRAST LOCATION: [facility] DATE/TIME: 10/14/2022 10:45 PM INDICATION: Generalized [...] EXAM: CT ABDOMEN PELVIS W CONTRAST LOCATION: [facility] DATE/TIME: 10/14/2022 10:45 PM INDICATION: Generalized [...] obstruction. 2. Fatty infiltration of the liver. Elina Reese PA-C IMG CT ORDERABLES * Stool: occult blood (10/14/2022 9:35 PM CDT) Occult Blood Negative Negative OMI 10/14/2022 10:09 PM CDT LABORATORY Stool RECTAL CONTENTS / Unknown Non-blood Collection / Unknown 10/14/2022 9:35 PM CDT 10/14/2022 9:55 PM CDT Elina Reese PA-C LAB - STOOLS DENICE BERGMAN LABORATORY [facility] [address] [facility] Lab (1st floor, no room number) [place] [address], [facility] [phone] * Procalcitonin (10/14/2022 9:04 PM CDT) Procalcitonin [...] Brant Herrera DO LAB - BLOOD ORDERABL [facility] Acute Care Lab [address] [facility] Lab (1st floor, no room number) [place] [address], [facility] [phone] * (ABNORMAL) Magnesium (10/14/2022 9:04 PM CDT) [facility] Magnesium 1.6(L) 1.7 - 2.3 mg/dL 10/15/2022 12:55 AM CDT LABORATORY Blood BLOOD SPECIMEN / Unknown Venipuncture / Unknown 10/14/2022 9:04 PM CDT 10/14/2022 9:11 PM CDT García Srivastava MD LAB - BLOOD ORDER LENA LABORATORY [facility] [address] Lab (1st floor, no room number) [place] [address], [facility] [phone] * Adult Type and Screen (10/14/2022 9:04 PM CDT) ABO/RH(D) A POS 10/14/2022 8:57 PM CDT RH BLOOD BANK Antibody Screen Negative Negative 10/14/2022 8:57 PM CDT RH BLOOD BANK SPECIMEN EXPIRATION DATE [id number] 10/14/2022 8:57 PM CDT RH BLOOD BANK Blood BLOOD SPECIMEN / Unknown Venipuncture / Unknown 10/14/2022 9:04 PM CDT 10/14/2022 9:11 PM CDT Elina Reese PA-C LAB - BLOOD BANK TEST ORDER Performing Organization Address City/[facility]/ZIP Co de Phone Number BLOOD BANK [address] [place] [address], [facility] * Extra Red Top Tube (10/14/2022 9:04 PM CDT) Hold Specimen [facility] 10/14/2022 10:16 PM CDT RH LABORATORY Blood BLOOD SPECIMEN / Unknown Venipuncture / Unknown 10/14/2022 9:04 PM CDT 10/14/2022 9:12 PM CDT Elina Reese PA-C LAB - BLOOD ORDER LENA LABORATORY [facility] [address] Lab (1st floor, no room number) [place] [address], [facility] [phone] * Extra Blue Top Tube (10/14/2022 9:04 PM CDT) Hold Specimen [facility] 10/14/2022 10:16 PM CDT LABORATORY Blood BLOOD SPECIMEN / Unknown Venipuncture / Unknown 10/14/2022 9:04 PM CDT 10/14/2022 9:11 PM CDT Elina Mary Ann ORTIZ-C LAB - BLOOD ORDER LENA LABORATORY [facility] Care Lab [address] [facility] Lab (1st floor, no room number) [place] [address], [facility] [phone] * Lipase (10/14/2022 9:04 PM CDT) Lipase 17 13 - 60 U/L 10/14/2022 9:32 PM CDT LABORATORY Blood BLOOD SPECIMEN / Unknown Venipuncture / Unknown 10/14/2022 9:04 PM CDT 10/14/2022 9:11 PM CDT Elina ORTIZ-C LAB - BLOOD ORDER LENA LABORATORY [facility] Lab [address] [facility] Lab (1st floor, no room number) [place] [id number], [facility] [phone] * (ABNORMAL) Comprehensive metabolic panel (10/14/2022 9:04 [...] PA-C LAB - BLOOD ORDER LENA LABORATORY [facility] [address] Lab (1st floor, no room number) [place] [address], [facility] [phone] * (ABNORMAL) CBC (platelets, no diff) (10/14/2022 [...] LAB - BLOOD ORDER LENA RH LABORATORY [facility] [address] Lab (1st floor, no room number) [place] [address] [phone] * EKG 12 lead (10/14/2022 8:58 PM CDT) Systolic Blood Pressure mmHg RADIOLOGY RESULTS Diastolic Blood Pressure mmHg RADIOLOGY RESULTS Ventricular Rate 90 BPM RAD IOLOGY RESULTS Atrial Rate 90 BPM RADIOLOG Y RESULTS VT Interval 230 ms RADIOLOG Y RESULTS QRS Duration 106 ms RADIOLO GY RESULTS QT 410 ms RADIOLOGY RESULTS QTc 501 ms RADIOLOGY RESULTS P Mesa 65 degrees RADIOLOGY RESULTS R AXIS 40 degrees RADIOLOGY RESULTS T Mesa 142 degrees RADIOLOGY RESULTS Interpretation ECG Sinus rhythm with 1st degree A-V block ST & T wave abnormality, consider anterolateral ischemia Prolonged QT Abnormal ECG When compared with ECG of 08-APR-2021 15:17, VT interval has increased Nonspecific T wave abnormality, worse in Inferior leads T wave inversion now evident in Anterior leads RADIOLOGY RESULTS 10/14/2022 8:58 PM CDT Elina Reese PA-C ECG ORDERABLES RADIOLOGY RESULTS documented in this encounter Visit Diagnoses Diagnosis Nausea and vomiting, unspecified vomiting type- Primary Pancolitis (H) [place]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 difficile colitis Intestinal infection due to clostridium difficile Pancolitis (H) [place] ulcerative (chronic) colitis documented in this encounter [...] Will Andrews RN) 0750 ($Given - Provider: Shaen Mcclure, ZITA)1157 ($Given - Provider: Shane Mcclure [...] Depression Total Score: 13 022 3:28 PM ESTIMATOR JEWELRY documented as of this encounter Care Teams Form Tamping Machine Operator Relationship Specialty [place] [address] [place] [address] PCP - General Family Medicine 05/18/22 Jovany Gonzalez MD [facility] [address] [facility] 605 [place] [address] Orthopedics 02/15/17 Staci [place] NP [place] [address] [place], [place] 47[address] Nurse Practitioner Nurse Practitioner Psych/Mental Health 05/10/[address] [place] [address] [place] [address] Hospital Internship Dietitian, Registered 07/25/19 Roshni Nascimento, RN Personal Advocate & Liaison (PAL) Family Medicine 08/18/20 Kiet Swain MD [facility]0 [facility] [address] [place], [place] [address] Referring Physician Psychiatry 09/19/20 Winsome Pike, VIDHI PREPRESS SPECIALIST [address] [place], [place] [address] Nurse Practitioner Psychiatry 09/19/20 Tori Hines, [facility] [address] [place] [address] 342724 Analytical Statistician Analytical Statistician - Clinical 09/19/20 [facility] [address] [place] [address] Pharmacist Pharmacist 11/12/20 Marisel Armando MD [address] [place] [address] Gastroenterology 02/05/21 Marisel Armando MD [address] [place] [address] 970955 Assigned Gastroenterology Provider 03/08/21 12/24/22 Wesley Barrett MD [address] [place] [address] 96 [place], [place] [id number] Assigned Neuroscience Provider 05/10/21 Charles Jaramillo PA-C [address] [address] Assigned Musculoskeletal Provider 04/26/21 10/15/22 [place] [address] [place] [address] Assigned PCP 05/15/22 Katiana Read MD [address] [place] [address] 200 [place], [place] 98[address] Assigned Endocrinology Provider 06/19/22 [place]e Sing[place] PhD [address] [place] [address] Assigned Behavioral Health Provider 07/03/22 12/31/22 Deena Garza APRN PREPRESS SPECIALIST [address] [place] [place] [place] [address] Assigned Pain Medication Provider 07/19/22 10/29/22 Michelle Guzman DPAlisha, Podiatry/Foot and Ankle Surgery [address] [place] [address] Assigned Musculoskeletal Provider 10/16/22 04/08/23 documented as of this encounter
--- OUTSIDE RECORDS SUMMARY | 2023-08-03 12:46 | XMS_ITS | Encounter Summary ---
Author Name Unknown Organization [facility] Address [address] [place] [address]. [place] [address] Care Team Providers Care Occupational Therapy Director Name Role Phone Jovany Gonzalez MD Unavailable CrissyStaci jeong PICK UP AND DELIVERY DRIVER Unavailable [phone] Unavailable Roshni Nascimento RN Unavailable Unavailable Kiet Swain MD Unavailable [phone] Winsome Pike APRN CUSTOMER RELATIONS ASSISTANT Unavailable [phone] Tori Hines [facility] Unavailable Miranda Queen [facility] Unavailable Unavailable Marisel Armando MD Unavailable Marisel Armando MD Unavailable Wesley Barrett MD Unavailable [phone] Charles Jaramillo PA-C Unavailable [phone] Dyan Fuentes MD Primary Care Provider [phone] Dyan Fuentes MD Unavailable [phone] Katiana Read MD Unavailable [phone] Meme Singleton PhD Unavailable [phone] Deena Garza PHARMACEUTICAL ENGINEER CUSTOMER RELATIONS ASSISTANT Unavailable [phone] Encounter Details Date Type Department Care Team [...] How often do you attend chur or denominational services? 1 to 4 times [...] Answer Date Recorded PHQ-2 Score 0 06/14/2022 [facility] [place] of Occupat ional Health - Occupational Stress [...] st Contact Info) Description 08/18/2023 3:00 PM COMMUNITY SERVICE DIRECTOR Office Visit [facility] [address] [place] [phone] Katiana Read MD [address] [place] [address] [place], [place] [address] documented as of this encounter Visit Diagnoses Not on filedocumented in this encounter Additional Health Concerns Infection Onset Date Last Indicated Resolved Time Rule Out C-difficile 10/14/2022 10/15/2022 023 12:33 AM CDT Assessment Noted Time PHQ-9 Depression Total Score: 13 022 3:28 PM COMMUNITY SERVICE DIRECTOR documented as of this encounter Care Teams Occupational Therapy Director Relationship Specialty [place] [address] [place] [address] PCP - General Family Medicine 05/18/22 Jovany Gonzalez MD [facility] [address] [facility] 605 [place] [address] Orthopedics 02/15/17 Staci Woodward PICK UP AND DELIVERY DRIVER [place] [address] [place], [place] [address] Nurse Practitioner Nurse Practitioner Psych/Mental Health 05/10/17 Reanna Smith, [place] [address] [place] [address] Vegetable Inspector Dietitian, Registered 07/25/19 Roshni Nascimento, RN Personal Advocate & Liaison (PAL) Family Medicine 08/18/20 Kiet Swain MD 2450 [facility] [address] [place] [address] Referring Physician Psychiatry 09/19/20 Winsome Pike APRN CUSTOMER RELATIONS ASSISTANT [address] [place], [place] [address] Nurse Practitioner Psychiatry 09/19/20 Tori Hines [facility] [address] [place], [place] [address] Sugar Grinder Sugar Grinder - Clinical 09/19/20 Miranda Queen [facility] [address] [place] [address] Pharmacist Pharmacist 11/12/20 Marisel Armando MD [address] [place] [address] [id number] Gastroenterology 02/05/21 Marisel Armando MD [address] [place] [address] 686905 Assigned Gastroenterology Provider 03/08/21 12/24/22 Wesley Barrett MD 420 [facility] 96 [place], [place] [phone] Assigned Neuroscience Provider 05/10/21 Charles Jaramillo PA-C [address] [facility] 450 [place], [place] [address] Assigned Musculoskeletal Provider 04/26/21 10/15/22 [place] [address] [address] [place], [place] 0[address] Assigned PCP 05/15/22 Katiana Read MD [address] [facility] 200 [place], [place] [phone] Assigned Endocrinology Provider 06/19/22 [place] [address] [place] [address]0177 Assigned Behavioral Health Provider 07/03/22 12/31/22 Deena Garza APRN CUSTOMER RELATIONS ASSISTANT [address] [place] [place] [address] Assigned Pain Medication Provider 07/19/22 10/29/22 documented as of this encounter
--- OUTSIDE RECORDS SUMMARY | 2023-08-03 12:46 | XMS_ITS | Encounter Summary ---
Author Name Unknown Organization [place] Address [address] [place] [address]. [place] [address] Care Team Providers Care Rubber Tubing Backer Name Role Phone Jovany Gonzalez MD Unavailable CrissyStaci jeong FISHERIES SPECIALIST Unavailable [phone] Unavailable Roshni Nascimento RN Unavailable Unavailable Kiet Swain MD Unavailable [phone] Winsome Pike APRN NUTRITION ASSOCIATE Unavailable [phone] Tori Hines [facility] Unavailable Miranda Queen [facility] Unavailable Unavailable Marisel Armando MD Unavailable Marisel Armando MD Unavailable Wesley Barrett MD Unavailable [phone] Charles Jaramillo PA-C Unavailable [phone] Dyan Fuentes MD Primary Care Provider [phone] Dyan Fuentes MD Unavailable [phone] Katiana Read MD Unavailable [phone] Meme Singleton PhD Unavailable [phone] Deena Garza COMPUTER ARCHITECT NUTRITION ASSOCIATE Unavailable [phone] Encounter Details Date Type Department Care Team [...] Answer Date Recorded PHQ-2 Score 0 06/14/2022 [facility] [place] of Occupat ional Health - Occupational Stress [...] st Contact Info) Description 08/18/2023 3:00 PM BENCH GRINDER Office Visit [place] [address] [place] [phone] Katiana Read MD [address] [place], [place] [address] documented as of this encounter Visit Diagnoses Not on filedocumented in this encounter Additional Health Concerns Assessment Noted Time PHQ-9 Depression Total Score: 13 022 3:28 PM BENCH GRINDER documented as of this encounter Care Teams Rubber Tubing Backer Relationship Specialty [place] [address] [place] [address] PCP - General Family Medicine 05/18/22 Jovany Gonzalez MD [facility] [address] [facility] [address] [place], [place] 40[address] Orthopedics 02/15/17 Staci [place], FISHERIES SPECIALIST [facility] [address] [place], [place] 32[address] Nurse Practitioner Nurse Practitioner Psych/Mental Health 05/10/17 Reanna Smith, RD [facility] [address] [place], [place] 79[address] Shipyard Painter Dietitian, Registered 07/25/19 Roshni Nascimento RN Personal Advocate & Liaison (PAL) Family Medicine 08/18/20 Kiet Swain MD 2450 [facility] [address] [place], [place] 46[address] Referring Physician Psychiatry 09/19/20 Winsome Pike APRN NUTRITION ASSOCIATE [address] [place], [place] [phone] Nurse Practitioner Psychiatry 09/19/20 Tori Hines, [facility] [address] [place], [place] [address] Information Receptionist Information Receptionist - Clinical 09/19/20 Bernice Miranda [facility] [address] [place] [address] Pharmacist Pharmacist 11/12/20 Marisel Armando MD [address] [place], [place] 3[address] Gastroenterology 02/05/21 Marisel Armando MD [address] [place] [address] 242065 Assigned Gastroenterology Provider 03/08/21 12/24/22 Wesley Barrett MD 420 [facility] 96 [place], [place] 3[address] Assigned Neuroscience Provider 05/10/21 Charles Jaramillo PA-C 6545 [facility] 450 [place] [address] Assigned Musculoskeletal Provider 04/26/21 10/15/22 [place] [address] [place] [address] Assigned PCP 05/15/22 Katiana Read MD [address] [facility] 200 [place] [address] Assigned Endocrinology Provider 06/19/22 Meme [place] PhD [address] [place] [address] Assigned Behavioral Health Provider 07/03/22 12/31/22 Deena Garza APRN NUTRITION ASSOCIATE [address] [place] [address] Assigned Pain Medication Provider 07/19/22 10/29/22 documented as of this encounter
--- OUTSIDE RECORDS SUMMARY | 2023-08-03 12:47 | XMS_ITS | Encounter Summary ---
Author Name Unknown Organization [place] Address [address] [place] [address]. [place] [address] Care Team Providers Care Data Analysis Assistant Name Role Phone Jovany Gonzalez MD Unavailable CrissyStaci jeong BRIM IRONER HAND Unavailable [phone] Unavailable [phone] Roshni Nascimento RN Unavailable Unavailable Kiet Swain MD Unavailable [phone] Winsome Pike APRN SUPERVISOR BINDERY Unavailable [phone] Tori Hines [facility] Unavailable Miranda Queen [facility] Unavailable Unavailable Marisel Armando MD Unavailable Marisel Armando MD Unavailable Wesley Barrett MD Unavailable [phone] Charles Jaramillo PA-C Unavailable [phone] Dyan Fuentes MD Primary Care Provider [phone] Dyan Fuentes MD Unavailable [phone] Katiana Read MD Unavailable [phone] Meme Singleton PhD Unavailable [phone] Deena Garza BUSINESS ACCOUNT SPECIALIST SUPERVISOR BINDERY Unavailable [phone] Encounter Details Date Type Department Care Team [...] How often do you attend chur or taoist services? 1 to 4 times per year [...] Answer Date Recorded PHQ-2 Score 0 06/14/2022 [facility] [place] of Occupat ional Health - Occupational Stress [...] Coronavirus/COVID-19? No / Unsure 09/06/2022 2:05 PM RECYCLING PROGRAM MANAGER documented as of this encounter Plan of Treatment Upcoming Encounters Date Type Department Care Team (Kelly st Contact Info) Description 08/18/2023 3:00 PM RECYCLING PROGRAM MANAGER Office Visit [facility] [address] [place] [phone] Katiana Read MD [address] [place], [place] [address] documented as of this encounter Visit Diagnoses Not on filedocumented in this encounter Additional Health Concerns Assessment Noted Time PHQ-9 Depression Total Score: 13 022 3:28 PM RECYCLING PROGRAM MANAGER documented as of this encounter Care Teams Data Analysis Assistant Relationship Specialty [place] [address] [place] [address] PCP - General Family Medicine 05/18/22 Jovany Gonzalez MD [facility] [address] [facility] [address] [place] [address] Orthopedics 02/15/17 Staci [place], BRIM IRONER HAND [facility] [address] [place], [place] [address] Nurse Practitioner Nurse Practitioner Psych/Mental Health 05/10/17 Reanna Smith, RD [facility] [address] [place], [place] [address] Environmental Projects Advisor Dietitian, Registered 07/25/19 Roshni Nascimento, RN Personal Advocate & Liaison (PAL) Family Medicine 08/18/20 Kiet Swain MD 2450 [facility] [address] [place], [place] [address] Referring Physician Psychiatry 09/19/20 Winsome Pike APRN SUPERVISOR BINDERY [address] [place] [address] Nurse Practitioner Psychiatry 09/19/20 Tori Hines, [facility] [address]50 [place], [place] [address] Job Recruiter Job Recruiter - Clinical 09/19/20 Miranda Queen [facility] [address] [place] [address] Pharmacist Pharmacist 11/12/20 Marisel Armando MD [address]09 [place], [place] [address] Gastroenterology 02/05/21 Marisel Armando MD [address] [place] [address] 978615 Assigned Gastroenterology Provider 03/08/21 12/24/22 Wesley Barrett MD 420 [facility] 96 [place], [place] [address] Assigned Neuroscience Provider 05/10/21 Charles Jaramillo PA-C 6545 [facility] 450 [place] [address] Assigned Musculoskeletal Provider 04/26/21 10/15/22 [place] [address] [place] [address] Assigned PCP 05/15/22 Katiana Read MD [address] [facility] [address] [place] [address] Assigned Endocrinology Provider 06/19/22 [place] [address] [place] [address] Assigned Behavioral Health Provider 07/03/22 12/31/22 Deena Garza APRN SUPERVISOR BINDERY [address] [place] [address] Assigned Pain Medication Provider 07/19/22 10/29/22 documented as of this encounter
--- OUTSIDE RECORDS SUMMARY | 2023-08-03 12:47 | XMS_ITS | Encounter Summary ---
Author Name Unknown Organization [place] Address [address] [place] [address]. [place] [address] Care Team Providers Care Industrial Relations Manager Name Role Phone Jovany Gonzalez MD Unavailable CrissyStaci jeong NP Unavailable [phone] Unavailable [phone] Roshni Nascimento RN Unavailable Unavailable Kiet Swain MD Unavailable [phone] Winsome Pike APRN WIRE TESTER Unavailable [phone] Tori Hines [facility] Unavailable Miranda Queen [facility] Unavailable Unavailable Marisel Armando MD Unavailable Marisel Armando MD Unavailable Inderjit Ugalde MD Unavailable [phone] Wesley Barrett MD Unavailable [phone] Charles Jaramillo PA-C Unavailable [phone] Dyan Fuentes MD Primary Care Provider [phone] Dyan Fuentes MD Unavailable [phone] Katiana Read MD Unavailable [phone] Meme Singleton PhD Unavailable [phone] Regina Garzaine Lashell VIDHI WIRE TESTER Unavailable + Mary Del Cid NP Unavailable +[phone] Elham Stack [facility] Unavailable [phone] Emerita Potter [facility] Unavailable [phone] Mary Del Cid NP Unavailable [phone] Michelle Guzman DPM, Podiatry /Foot and Ankle Surgery Unavailable Dyan Fuentes MD Unavailable [phone] Mary Del Cid NP Unavailable + Aubrey Jones MD Unavailable [phone] Blanquita Morales Unavailable Unavailable Aubrey Jones MD Unavailable + [phone] Encounter Details Date Type Department Care Team (Late st Contact Info) Description 08/19/2022 MyC Medical Advice [facility] Neuro[facility] [address] [address] Caryl Wheeler MA Social History [...] often do you attend chur ch or rastafari services? 1 to 4 times [...] Score 0 06/14/2022 [facility] of Occupat ional Health [...] Coronavirus/COVID-19? Unable to assess 08/18/2022 11:00 AM INFORMATION TECHNOLOGY ASSOCIATE documented as of this encounter Plan of Treatment Upcoming Encounters Date Type Department Care Team (Late st Contact Info) Description 08/18/2023 3:00 PM INFORMATION TECHNOLOGY ASSOCIATE Office Visit [facility] [address] [place] [address] Katiana Read MD [address] [address] [place] [address] documented as of this encounter [...] Depression Total Score: 13 022 3:28 PM INFORMATION TECHNOLOGY ASSOCIATE documented as of this encounter Care Teams Industrial Relations Manager Relationship Specialty [place] [address] [place] [address] PCP - General Family Medicine 05/18/22 Jovany Gonzalez MD [facility] [address] [facility] [address] [place], [place] 3924[address] Orthopedics 02/15/17 Staci Woodward, SEMICONDUCTOR PACKAGE SYMBOL STAMPER [place] [address] [place] [address] Nurse Practitioner Nurse Practitioner Psych/Mental Health 05/10/17 Reanna Smith, LAURA [place] [address] [place], [place] [address] Professional Builder Dietitian, Registered 07/25/19 Roshni Nascimento, RN Personal Advocate & Liaison (PAL) Family Medicine 08/18/20 Kiet Swain MD [address] [place] [address] [id number] Referring Physician Psychiatry 09/19/20 Winsome Pike APRN WIRE TESTER [address] [place] [address] Nurse Practitioner Psychiatry 09/19/20 Tori Hines, [facility] [address] [place] [address] Tank Cleaner Tank Cleaner - Clinical 09/19/20 Miranda Queen [facility] [address] [place] [address] Pharmacist Pharmacist 11/12/20 Marisel Armando MD 909 [place] [address] Gastroenterology 02/05/21 Marisel Armando MD [address] [place] [address] Assigned Gastroenterology Provider 03/08/21 12/24/22 Inderjit Ugalde MD [address] [facility] 300 [place], [place] 161567 Assigned Surgical Provider 02/15/21 08/20/22 Wesley Barrett MD 420 [facility] 96 [place], [place] 208685 Assigned Neuroscience Provider 05/10/21 Charles Jaramillo PA-C [address] 796705 Assigned Musculoskeletal Provider 04/26/21 10/15/22 [place] [address] [place] [address] Assigned PCP 05/15/22 Katiana Read MD [address] [facility] 200 [place], [place] [address] Assigned Endocrinology Provider 06/19/22 Meme [place] PhD [address] [place] [address] Assigned Behavioral Health Provider 07/03/22 12/31/22 Deena Garza, CLINICAL TRIALS ASSISTANT WIRE TESTER [address] [place] [address] Assigned Pain Medication Provider 07/19/22 10/29/22 [place] [address] [place] [address] Nurse Practitioner Nurse Practitioner 10/18/22 Elham Stack, [facility] [address] [place], [place] [address] Pharmacist Pharmacist 10/19/22 Emerita Potter, [facility] Clinic Tapper Balance Wheel Screw Hole Tank Cleaner - Clinical 10/29/22 11/02/22 Mary Del Cid, RAFAEL [address] [place] [address] Assigned Pain Medication Provider 10/30/22 12/03/22 Michelle Guzman DPAlisha, Podiatry/Foot and Ankle Surgery [address] [place] [address] Assigned Musculoskeletal Provider 10/16/22 04/08/23 [place] [address] [place] [address] Assigned Pain Medication Provider 12/04/22 04/01/23 [place] [address] [place] [address] Nurse Practitioner Nurse Practitioner 01/17/23 01/17/23 Aubrey Jones MD [address] [place] [address] Cardiovascular Disease 03/28/23 Blanquita Morales Professional Builder Diabetes Education 04/25/23 Aubrey Jones MD [address] [place] [address] Assigned Heart and Vascular Provider 05/07/23 documented as of this encounter
--- OUTSIDE RECORDS SUMMARY | 2023-08-03 12:47 | XMS_ITS | Encounter Summary ---
Author Name Unknown Organization [place] Address [address] [place] [address]. [place] [address] Care Team Providers Care Automatic Winder Operator Name Role Phone Jovany Gonzalez MD Unavailable CrissyStaci jeong CLINICAL STATISTICS MANAGER Unavailable [phone] Unavailable Roshni Nascimento RN Unavailable Unavailable Kiet Swain MD Unavailable [phone] Winsome Pike APRN MANAGER ENVIRONMENTAL HEALTH AND SAFETY Unavailable [phone] Tori Hines [facility] Unavailable Miranda Queen [facility] Unavailable Unavailable Marisel Armando MD Unavailable Marisel Armando MD Unavailable Wesley Barrett MD Unavailable [phone] Charles Jaramillo PA-C Unavailable [phone] Dyan Fuentes MD Primary Care Provider [phone] Dyan Fuentes MD Unavailable [phone] Katiana Read MD Unavailable [phone] Meme Singleton PhD Unavailable [phone] Deena Garza IRRIGATION SERVICE TECHNICIAN MANAGER ENVIRONMENTAL HEALTH AND SAFETY Unavailable [phone] Reason for Referral * Diagnostic Imaging CT Scan (Routine) - Closed Specialty Diagnoses / Procedures Referred By Contac t Referred To Contact Diagnoses Nicotine dependence, uncomplicated, unspecified nicotine product type Personal history of nicotine dependence Personal history of tobacco use Procedures CT Chest Lung Cancer [place] [address] [place] [address] Referral ID Status Reason Start Date Expiration Date Visits Re quested Visits Authorized [id number] Closed 06/14/2022 06/14/2023 1 1 RVISOR PIPE MANUFACTURE Reason for Visit * Diagnostic Imaging CT Scan (Routine) - Closed Specialty Diagnoses / Procedures Referred By Jose R kelly Referred To Contact Diagnoses Nicotine dependence, uncomplicated, unspecified nicotine product type Personal history of nicotine dependence Personal history of tobacco use Procedures CT Chest Lung [place] [address] [place] [address] Referral ID Status Reason Start Date Expiration Date Visits Re quested Visits Authorized [id number] Closed 06/14/2022 06/14/2023 1 1 Encounter Details Date Type Department Care Team (Latest Contact Info) Description 09/06/2022 3:27 PM SUPERVISOR PIPE MANUFACTURE - 09/06/2022 11:59 PM SUPERVISOR PIPE MANUFACTURE Hospital Encounter [facility] [address] [facility] [address] [place] [address] [place] [address] [place] [address] Nicotine dependence, uncomplicated, unspecified nicotine product type; [...] How often do you attend chur or scientology services? 1 to 4 times [...] Answer Date Recorded PHQ-2 Score 0 06/14/2022 [facility] - Occupational Stress [...] Coronavirus/COVID-19? No / Unsure 09/06/2022 2:05 PM SUPERVISOR PIPE MANUFACTURE documented as of this encounter Medications at Time of Discharge Medication Sig Dispensed Refills Start Date End Date calcium carbonate (OS-ALISA) 1500 (600 Ca) MG tabletIndications:Tob acco dependence Take 1 tablet (600 mg) by mouth 2 times daily (with meals) 100 tablet 0 05/06/2021 Continuous Blood Gluc Sanding Machine Operator Or Tender (DEXCOM G6 E COMMERCE STRATEGIST) DEVIIndications:Type 2 diabetes mellitus without complication, [...] mouth daily 90 tablet 3 06/14/2022 05/12/2023 chlorhexidine (PERIDEX) 0.12 % solution Take 15 [...] (NARCAN) nasal sprayIndications:At risk for substance overdose Vinson 1 spray (4 mg) into one nostril alternating nostrils as needed 0.2 mL 0 11/19/2016 11/11/2022 nystatin (MYCOSTATIN) 750922 UNIT/GM external ointmentIndications:S kin rash Apply topically [...] 06/14/2022 05/12/2023 vitamin D3 (CHOLECALCIFEROL) 1.25 MG (55056 UT) capsuleIndications:Vi tamin D deficiency Take 50,000 Units by mouth every 7 days Mondays 100 capsule 0 05/06/2021 10/26/2022 buprenorphine HCl-naloxone HCl (SUBOXONE) 2-0.5 MG per filmIndications:Chron ic pain syndrome Place 1 Film under the tongue 3 times daily OK to fill 08/22/22 start 08/24/22 90 Film 0 08/19/2022 09/20/2022 polyethylene glycol (MIRALAX) 17 GM/Dose powderIndications:Pos t-op pain Take 17 g by mouth daily 510 g 0 11/16/2021 10/15/2022 documented as of this encounter Plan of Treatment Upcoming Encounters Date Type Department Care Team (Late st Contact Info) Description 08/18/2023 3:00 PM SUPERVISOR PIPE MANUFACTURE Office Visit [facility] [address] [facility] [address] [place] [address] Katiana Read MD [address] [facility] 200 [place] [address] documented as of this encounter Procedures Procedure Name Priority Date/Time Associated Diagnosis Comments CT CHEST LUNG CANCER SCREEN LOW DOSE WITHOUT Routine 09/06/2022 3:46 PM SUPERVISOR PIPE MANUFACTURE Nicotine dependence, uncomplicated, unspecified nicotine product type Personal history of nicotine dependence Personal history of tobacco use documented in this encounter Results * CT Chest Lung Cancer Scrn Low Dose wo (09/06/2022 3:46 PM SUPERVISOR PIPE MANUFACTURE) Anatomical Region Laterality Modality Chest, SUBRAD CT BODY, UMP CT CHEST, RAD CT Computed Tomography Impressions 09/08/2022 11:55 AM SUPERVISOR PIPE MANUFACTURE IMPRESSION: 1. ACR Assessment Category: ??Lung-RADS Category 2. Benign appearance or behavior. Recommendation: Continue annual screening, if clinically relevant (please order exam code IMG 2290). 2. Significant Incidental Finding(s): ??Category S: Yes. * ??Moderate atherosclerotic vascular calcification of the coronary arteries. * ??Hepatic steatosis. ?? Download the LungRADS Assessment Categories table at this site: http://www.acr.org/Quality-Safety/Resources/LungRADS ?? ANDREA BRANCH MD SYSTEM ID: ??[id number] Narrative 09/08/2022 11:55 AM SUPERVISOR PIPE MANUFACTURE CT CHEST LUNG CANCER SCREEN LOW DOSE [...] Total Score: 13 022 3:28 PM SUPERVISOR PIPE MANUFACTURE documented as of this encounter Care Teams Automatic Winder Operator Relationship Specialty [place] [address] [place] [address] PCP - General Family Medicine 05/18/22 Jovany Gonzalez MD [facility] [address] [facility] [address] [place], [place] [address] Orthopedics 02/15/17 Staci Woodward NP [place] [address] [place], [place] [address] Nurse Practitioner Nurse Practitioner Psych/Mental Health 05/10/17 Reanna Smith, [facility] [address] [place], [place] 6023[address] Toy Parts Former Supervisor Dietitian, Registered 07/25/19 Roshni Nascimento, RN Personal Advocate & Liaison (PAL) Family Medicine 08/18/20 Kiet Swain MD [address] [place] [address] 240784 Referring Physician Psychiatry 09/19/20 Winsome Pike APRN MANAGER ENVIRONMENTAL HEALTH AND SAFETY [address] [place] [address] Nurse Practitioner Psychiatry 09/19/20 Tori Hines, [facility] [address] [place] [address] Paint Spray Tender Paint Spray Tender - Clinical 09/19/20 Richardrene Miranda, [facility] [address] [place] [address] Pharmacist Pharmacist 11/12/20 Marisel Armando MD 909 [place], [place] [address] Gastroenterology 02/05/21 Marisel Armando MD [address] [place] [address] 680825 Assigned Gastroenterology Provider 03/08/21 12/24/22 Wesley Barrett MD 420 [facility] 96 [place], [place] [address] Assigned Neuroscience Provider 05/10/21 Charles Jaramillo PA-C [address] [address] Assigned Musculoskeletal Provider 04/26/21 10/15/22 [place] [address] [place] [address] Assigned PCP 05/15/22 Katiana Read MD [address] [facility] 200 [place] [address] Assigned Endocrinology Provider 06/19/22 [place]e [place] PhD [address] [place] [address] Assigned Behavioral Health Provider 07/03/22 12/31/22 Deena Garza, IRRIGATION SERVICE TECHNICIAN MANAGER [facility]ON[facility] HEALTH AND SAFETY [address] [place] [address] Assigned Pain Medication Provider 07/19/22 10/29/22 documented as of this encounter
--- OUTSIDE RECORDS SUMMARY | 2023-08-03 12:47 | XMS_ITS | Encounter Summary ---
Author Name Unknown Organization [place] Address [address] [place] [address]. [place] [address] Care Team Providers Care Interactive Web Developer Name Role Phone Jovany Gonzalez MD Unavailable CrissyStaci jeong SAP GATHERER Unavailable [phone] Unavailable Roshni Nascimento RN Unavailable Unavailable Kiet Swain MD Unavailable [phone] Winsome Pike APRN DRAPERY HAND Unavailable [phone] Tori Hines [facility] Unavailable Miranda Queen [facility] Unavailable Unavailable Marisel Armando MD Unavailable Marisel Armando MD Unavailable Wesley Barrett MD Unavailable [phone] Charles Jaramillo PA-C Unavailable [phone] Dyan Fuentes MD Primary Care Provider [phone] Dyan Fuentes MD Unavailable [phone] Katiana Read MD Unavailable [phone] Meme Singleton PhD Unavailable [phone] Deena Garza ACCOUNTS PAYABLES CLERK DRAPERY HAND Unavailable [phone] Encounter Details Date Type Department Care Team (Late st Contact Info) Description 10/04/2022 2:[address] [facility] [address] [place] [address] Hypertriglyceridemia; Vitamin B12 deficiency; Postprocedural [...] do you attend [facility] or mandaen services? 1 to 4 times per year [...] Answer Date Recorded PHQ-2 Score 0 06/14/2022 [facility] [place] of Occupat ional Health - Occupational Stress [...] burns Contact Info) Description 08/18/2023 3:00 PM ORIENTAL RUG STRETCHER Office Visit [facility] [address] [place] [address] Katiana Read MD [address] [place] [address] documented as of this encounter Procedures Procedure [...] LAB - BLOOD ORDER LENA U LABORATORY [facility] [place] [facility] [address] [facility], [address] [place] [address], [facility] [phone] * (ABNORMAL) TSH (10/04/2022 1:56 PM CDT) TSH 47.60(H) 0.30 - 4.20 uIU/mL 10/04/2022 6:38 PM CDT [facility] LAB[facility]ATORY Blood BLOOD SPECIMEN / Unknown Venipuncture / Unknown 10/04/2022 1:56 PM CDT 10/04/2022 1:56 PM CDT Katiana Read MD LAB - BLOOD ORDER LENA U LABORATORY [facility] Core Lab [address] [facility], [address] [place] [address], [facility] [phone] * (ABNORMAL) T4 free (10/04/2022 1:56 PM CDT) Pathologist [facility] Free T4 0.66(L) 0.90 - 1.70 ng/dL 10/04/2022 6:38 PM CDT [facility] Blood BLOOD SPECIMEN / Unknown Venipuncture / Unknown 10/04/2022 1:56 PM CDT 10/04/2022 1:56 PM CDT Katiana Read MD LAB - BLOOD ORDER LENA U LABORATORY [facility] [place] [facility] [address] [facility], [address] [place] [address], [facility] [phone] * Vitamin B12 (10/04/2022 1:56 PM CDT) Vitamin B12 1,237 232 - 1,245 pg/mL 10/04/2022 6:38 PM CDT [facility] Blood BLOOD SPECIMEN / Unknown Venipuncture / Unknown 10/04/2022 1:56 PM CDT 10/04/2022 1:56 PM CDT Dyan Fuentes MD LAB - BLOOD ORDER LENA [facility] Lab [address] [facility] [address] [facility], [address] [place] [address], [facility] [phone] * (ABNORMAL) Lipid panel reflex to direct [...] LAB - BLOOD ORDER LENA U LABORATORY [facility] [place] [facility] [address] [facility], [address] [place] [address], [facility] [phone] documented in this encounter Visit Diagnoses Diagnosis Hypertriglyceridemia Pure hyperglyceridemia Vitamin B12 deficiency Other B-complex deficiencies Postprocedural hypothyroidism Postsurgical hypothyroidism documented in this encounter Additional Health Concerns Assessment Noted Time PHQ-9 Depression Total Score: 13 022 3:28 PM ORIENTAL RUG STRETCHER documented as of this encounter Care Teams Interactive Web Developer Relationship Specialty [place] [address] [place] [address] PCP - General Family Medicine 05/18/22 Jovany Gonzalez MD [facility] [address] [facility] [address] [place] [address] Orthopedics 02/15/17 Staci Woodward SAP GATHERER [facility] [address] [place] [address] Nurse Practitioner Nurse Practitioner Psych/Mental Health 05/10/17 Reanna Smith, RD [facility] [address] [place] [address] Film Numberer Dietitian, Registered 07/25/19 Roshni Nascimento, RN Personal Advocate & Liaison (PAL) Family Medicine 08/18/20 Kiet Swain MD [address] [facility] [address] [place] [address] Referring Physician Psychiatry 3/12/21 Winsome Pike APRN DRAPERY HAND [address] [place], [place] 44[address] Nurse Practitioner Psychiatry 09/19/20 Tori Hines, [facility] [address] [place], [place] [id number] Unclaimed Property Officer Unclaimed Property Officer - Clinical 09/19/20 Miranda Queen, [facility] [address] [place] [address] Pharmacist Pharmacist 11/12/20 Marisel Armando MD [address] [place] [address] 515665 Gastroenterology 02/05/21 Marisel Armando MD [address] [place] [address] 870265 Assigned Gastroenterology Provider 03/08/21 12/24/22 Wesley Barrett MD 420 [facility] 96 [place], [place] [address] Assigned Neuroscience Provider 05/10/21 Charles Jaramillo PA-C 6545 [facility] 450 [place] [address] Assigned Musculoskeletal Provider 04/26/21 10/15/22 [place] [address] [place] [address] Assigned PCP 05/15/22 Katiana Read MD [address] [place] [address] Assigned Endocrinology Provider 06/19/22 [place] [address] [place] [address] Assigned Behavioral Health Provider 07/03/22 12/31/22 Deena Garza, ACCOUNTS PAYABLES CLERK DRAPERY HAND [address] [place] [address] Assigned Pain Medication Provider 07/19/22 10/29/22 documented as of this encounter
--- OUTSIDE RECORDS SUMMARY | 2023-08-03 12:47 | XMS_ITS | Encounter Summary ---
Author Name Unknown Organization [facility] Address [address] [place] [address]. [place] [address] Care Team Providers Care Ton Cylinder Inspector Name Role Phone Jovany Gonzalez MD Unavailable CrissyStaci jeong NP Unavailable [phone] Unavailable Roshni Nascimento RN Unavailable Unavailable Kiet Swain MD Unavailable [phone] Winsome Pike APRN COPPER PLATER Unavailable [phone] Tori Hines [facility] Unavailable Miranda Queen [facility] Unavailable Unavailable Marisel Armando MD Unavailable Marisel Armando MD Unavailable Inderjit Ugalde MD Unavailable [phone] Wesley Barrett MD Unavailable [phone] Charles Jaramillo PA-C Unavailable [phone] Dyan Fuentes MD Primary Care Provider [phone] Dyan Fuentes MD Unavailable [phone] Katiana Read MD Unavailable [phone] Meme Singleton PhD Unavailable [phone] Deena Garza APRN COPPER PLATER Unavailable [phone] Encounter Details Date Type Department Care Team [...] How often do you attend chur or jehovah's witness services? 1 to 4 [...] 0 06/14/2022 [facility] [place] of Occupat ional Health - Occupational Stress [...] Coronavirus/COVID-19? No / Unsure 08/17/2022 9:30 AM CONE OPERATOR documented as of this encounter Plan of Treatment Upcoming Encounters Date Type Department Care Team (Late st Contact Info) Description 08/18/2023 3:00 PM CONE OPERATOR Office Visit [place] [address] [place] [address] Katiana Read MD [address] [facility] 200 [place], [place] [address] documented as of this encounter Visit Diagnoses Not on filedocumented in this encounter Additional Health Concerns Assessment Noted Time PHQ-9 Depression Total Score: 13 022 3:28 PM CONE OPERATOR documented as of this encounter Care Teams Ton Cylinder Inspector Relationship Specialty [place] [address] [place] [address] PCP - General Family Medicine 05/18/22 Jovany Gonzalez MD [facility] [address] [facility] 605 [place], [place] [address] Orthopedics 02/15/17 Staci Woodward CAN WORKER [place] [address] [place], [place] [address] Nurse Practitioner Nurse Practitioner Psych/Mental Health 05/10/17 Reanna Smith, RD [place] [address] [place] [address] Reed Polisher Dietitian, Registered 07/25/19 Roshni Nascimento, RN Personal Advocate & Liaison (PAL) Family Medicine 08/18/20 Kiet Swain MD 2450 [facility] [place], [place] [address] Referring Physician Psychiatry 09/19/20 Winsome Pike APRN COPPER PLATER [address] [place] [address] 349524 Nurse Practitioner Psychiatry 09/19/20 Tori Hines [facility] [address] [place], [place] [phone] Roller Mechanic Roller Mechanic - Clinical 09/19/[address] [facility] [address] [place] [address] Pharmacist Pharmacist 11/12/20 Marisel Armando MD [address] [place] [address] 723065 Gastroenterology 02/05/21 Marisel Armando MD [address] [place] [address] 850985 Assigned Gastroenterology Provider 03/08/21 12/24/22 Inderjit Ugalde MD [address] [facility] 300 [place], [place] [address] Assigned Surgical Provider 02/15/21 08/20/22 Wesley Barrett MD 420 [facility] 96 [place], [place] [address] Assigned Neuroscience Provider 05/10/21 Charles Jaramillo PA-C [address] 2255[address] Assigned Musculoskeletal Provider 04/26/21 10/15/22 [place] [address] [place] [address] Assigned PCP 05/15/22 Katiana Read MD [address] [place] 200 [place] [address] Assigned Endocrinology Provider 06/19/22 [place] [address] [place] [address] Assigned Behavioral Health Provider 07/03/22 12/31/22 Deena Garza, STATISTICAL MODELER COPPER PLATER [address] [place] [address] Assigned Pain Medication Provider 07/19/22 10/29/22 documented as of this encounter
--- OUTSIDE RECORDS SUMMARY | 2023-08-03 12:47 | XMS_ITS | Encounter Summary ---
Author Name Unknown Organization [place] Address [address] [place] [address]. [place] [address] Care Team Providers Care Visual Design Lead Name Role Phone Jovany Gonzalez MD Unavailable CrissyStaci jeong NP Unavailable [phone] Unavailable Roshni Nascimento RN Unavailable Unavailable Kiet Swain MD Unavailable [phone] Winsome Pike APRN SWITCHGEAR REPAIRER Unavailable +[phone] Tori Hines [facility] Unavailable Miranda Queen [facility] Unavailable Unavailable Winsome Pike APRN SWITCHGEAR REPAIRER Unavailable [phone] Marisel Armando MD Unavailable Marisel Armando MD Unavailable Inderjit Ugalde MD Unavailable [phone] Wesley Barrett MD Unavailable +[phone] Charles Jaramillo PA-C Unavailable +[phone] Dyan Fuentes MD Primary Care Provider +[phone] Dyan Fuentes MD Unavailable +[phone] Katiana Read MD Unavailable +[phone] Meme Singleton PhD Unavailable +8 Greg Deena Lashell ANGLE SHEARER SWITCHGEAR REPAIRER Unavailable + Mary Del Cid NP Unavailable +5400 Elham Stack [facility] Unavailable +[phone] Emerita Potter [facility] Unavailable [phone] Mary Del iCd NP Unavailable +5400 Michelle Guzman DPM, Podiatry /Foot and Ankle Surgery Unavailable Dyan Fuentes MD Unavailable +[phone] Mary Del Cid NP Unavailable +5400 Aubrey Jones MD Unavailable +[phone] Blanquita Morales Unavailable Unavailable Aubrey Jones MD Unavailable +[phone] Encounter Details Date Type Department Care Team (Late st Contact Info) Description 06/15/2022 MyC Medical Advice [facility] [address] [place] [address] Chidi Zabala Social History Tobacco Use [...] often do you attend chur ch or shinto services? 1 to 4 times [...] Answer Date Recorded PHQ-2 Score 0 06/14/2022 [facility] - [...] Coronavirus/COVID-19? No / Unsure 06/14/2022 2:05 PM BOOKSTORE MANAGER documented as of this encounter Plan of Treatment Upcoming Encounters Date Type Department Care Team (Late st Contact Info) Description 08/18/2023 3:00 PM BOOKSTORE MANAGER Office Visit [facility] [address] [place] [address] Katiana Read MD [address] [facility] 200 [place] [address] documented as of this encounter [...] Depression Total Score: 13 022 3:28 PM BOOKSTORE MANAGER documented as of this encounter Care Teams Visual Design Lead Relationship Specialty [place] [address] [place] [address] PCP - General Family Medicine 05/18/22 Jovany Gonzalez MD [facility] [address] [facility] [address] [place], [place] 49[address] Orthopedics 02/15/17 Staci Woodward, SUPERVISOR RIDES [place] [address] [place], [place] 95[address] Nurse Practitioner Nurse Practitioner Psych/Mental Health 05/10/17 Reanna Smith, RD [place] [address] [place], [place] 392967 Mail Truck Driver Dietitian, Registered 07/25/19 Roshni Nascimento, RN Personal Advocate & Liaison (PAL) Family Medicine 08/18/20 Kiet Swain MD [address] [place], [place] [address] [place], [place] [address] Referring Physician Psychiatry 09/19/20 Winsome Pike APRN SWITCHGEAR REPAIRER [address] [place] [address] 127894 Nurse Practitioner Psychiatry 09/19/20 Tori Hines, [facility] [address] [place] [address] 136884 Precision Crop Manager Precision Crop Manager - Clinical 09/19/20 Miranda Queen, [facility] [address] [place] [address] Pharmacist Pharmacist 11/12/20 Winsome Pike APRN SWITCHGEAR REPAIRER [address] [place] [address] Assigned Behavioral Health Provider 01/04/21 07/02/22 Marisel Armando MD [address] [place] [address] 018355 Gastroenterology 02/05/21 Marisel Armando MD [address] [place] [address] 789175 Assigned Gastroenterology Provider 03/08/21 12/24/22 Inderjit Ugalde MD [address] [facility] 300 [place], [place] 806447 Assigned Surgical Provider 02/15/21 08/20/22 Wesley Barrett MD [address] [facility] 96 [place], [place] 76[address] Assigned Neuroscience Provider 05/10/21 Charles Jaramillo PA-C [address] [facility] 450 [place] [address] Assigned Musculoskeletal Provider 04/26/21 10/15/22 [place] [address] [place] [address] Assigned PCP 05/15/22 Katiana Read MD [address] 200 [place], [place] 907[address] Assigned Endocrinology Provider 06/19/22 Meme [place] PhD [address] [address] [place] [address] Assigned Behavioral Health Provider 07/03/22 12/31/22 Deena Garza APRN SWITCHGEAR REPAIRER [address] [place] [address] Assigned Pain Medication Provider 07/19/22 10/29/22 Mary Del Cid, [place] [address] [place] [address] Nurse Practitioner Nurse Practitioner 10/18/22 Elham Stack, [facility] [address] [place], [place] 69[address] Pharmacist Pharmacist 10/19/22 Emerita Potter, [facility] Clinic Java Lead Architect Precision Crop Manager - Clinical 10/29/22 11/02/22 Mary Del Cid, [place] [address] [facility] [facility] [place] [address] Assigned Pain Medication Provider 10/30/22 12/03/22 Michelle Guzman DPM, Podiatry/Foot and Ankle Surgery [address] [place] [address] Assigned Musculoskeletal Provider 10/16/22 04/08/23 [place] [address] [place] [address] Assigned Pain Medication Provider 12/04/22 04/01/23 [place] [address] [address] [place] [address] Nurse Practitioner Nurse Practitioner 01/17/23 01/17/23 Aubrey Jones MD [address] [place] [address] Cardiovascular Disease 03/28/23 Blanquita Morales Mail Truck Driver Diabetes Education 04/25/23 Aubrey Jones MD [address] [place] [address] Assigned Heart and Vascular Provider 05/07/23 documented as of this encounter
--- OUTSIDE RECORDS SUMMARY | 2023-08-03 12:47 | XMS_ITS | Encounter Summary ---
Author Name Unknown Organization [place] Address [address] [place] [address]. [place] [address] Care Team Providers Care Material Processor Name Role Phone Jovany Gonzalez MD Unavailable CrissyStaci jeong NP Unavailable [phone] Unavailable Roshni Nascimento RN Unavailable Unavailable Kiet Swain MD Unavailable [phone] Winsome Pike APRN COMMERCIAL ACCOUNT EXECUTIVE Unavailable [phone] [facility] Unavailable Miranda Queen [facility] Unavailable Unavailable Marisel Armando MD Unavailable Marisel Armando MD Unavailable Inderjit Ugalde MD Unavailable [phone] Wesley Barrett MD Unavailable [phone] Charles Jaramillo PA-C Unavailable +[phone] Dyan Fuentes MD Primary Care Provider +[phone] Dyan Fuentes MD Unavailable +[phone] Katiana Read MD Unavailable [phone] Meme Singleton PhD Unavailable [phone] Regina Garzaine L STRAPPING MACHINE OPERATOR COMMERCIAL ACCOUNT EXECUTIVE Unavailable + Mary Del Cid NP Unavailable + [phone] Elham Stack [facility] Unavailable [phone] [facility] Unavailable [phone] Mary Del Cid NP Unavailable + 3597 Michelle Guzman DPM, Podiatry /Foot and Ankle Surgery Unavailable Dyan Fuentes MD Unavailable +[phone] Mary Del Cid NP Unavailable +[phone] Aubrey Jones MD Unavailable [phone] Blanquita Morales Unavailable Unavailable Aubrey Jones MD Unavailable + [phone] Encounter Details Date Type Department Care Team (Late st Contact Info) Description 07/06/2022 MyC Medical Advice [facility] [address] [place] [address] Lynda Oliver, MINES SAFETY ENGINEER Social History Tobacco Use Types Packs/Day [...] often do you attend chur ch or adventist services? 1 to 4 times per year [...] Answer Date Recorded PHQ-2 Score 0 06/14/2022 [facility] [...] / Unsure 06/14/2022 2:05 PM DIRECTOR OF HOTEL OPERATIONS documented as of this encounter Plan of Treatment Upcoming Encounters Date Type Department Care Team (Late st Contact Info) Description 08/18/2023 3:00 PM DIRECTOR OF HOTEL OPERATIONS Office Visit [facility] [address] [facility] [address] [place] [address] Katiana Read MD [address] [address] [place] [address] documented as of this encounter Visit Diagnoses [...] Score: 13 022 3:28 PM DIRECTOR OF HOTEL OPERATIONS documented as of this encounter Care Teams Material Processor Relationship Specialty [place] [address] [place] [address] PCP - General Family Medicine 05/18/22 Jovany Gonzalez MD [facility] [address] [facility] [address] [place], [place] 7[address] Orthopedics 02/15/17 Staci Woodward, GRAPHIC ART TECHNICIAN [place] [address] [place], [place] [address] Nurse Practitioner Nurse Practitioner Psych/Mental Health 05/10/17 Reanna Smith, RD [place] [address] [place], [place] 560487 Environmental Services Director Dietitian, Registered 07/25/19 Roshni Nascimento, RN Personal Advocate & Liaison (PAL) Family Medicine 08/18/20 Kiet Swain MD [address] [place] [address] 746394 Referring Physician Psychiatry 09/19/20 Winsome Pike APRN COMMERCIAL ACCOUNT EXECUTIVE [address] [address] Nurse Practitioner Psychiatry 09/19/20 Tori Hines, [facility] [address] [place] [address] Photo Tech Photo Tech - Clinical 09/19/20 Miranda Queen [facility] [address] [facility] [place] [address] Pharmacist Pharmacist 11/12/20 Marisel Armando MD 909 [place] [address] Gastroenterology 02/05/21 Marisel Armando MD [address] [place] [address] Assigned Gastroenterology Provider 03/08/21 12/24/22 Inderjit Ugalde MD [address] [facility] 300 [place], [place] [address] Assigned Surgical Provider 02/15/21 08/20/22 Wesley Barrett MD 420 [facility] 96 [place], [place] 6[address] Assigned Neuroscience Provider 05/10/21 Charles Jaramillo PA-C [address] 015925 Assigned Musculoskeletal Provider 04/26/21 10/15/22 [place] [address] [place] [address] Assigned PCP 05/15/22 Katiana Read MD [address] [facility] 200 [place], [place] 8[address] Assigned Endocrinology Provider 06/19/22 [place] [address] [place] [address] Assigned Behavioral Health Provider 07/03/22 12/31/22 Deena Garza, STRAPPING MACHINE OPERATOR COMMERCIAL ACCOUNT EXECUTIVE [address] [place] [place] [address] Assigned Pain Medication Provider 07/19/22 10/29/22 [place] [address] [place] [address] Nurse Practitioner Nurse Practitioner 10/18/22 Elham Stack, [facility] [address] [place], [place] [address] Pharmacist Pharmacist 10/19/22 Emerita Potter, [facility] Clinic Gut Snatcher Photo Tech - Clinical 10/29/22 11/02/22 Mary Del Cid, RAFA[place] [address] [place] [address] Assigned Pain Medication Provider 10/30/22 12/03/22 Michelle Guzman DPM, Podiatry/Foot and Ankle Surgery [address] [place] [place] [address] Assigned Musculoskeletal Provider 10/16/22 04/08/23 [place] [address] [place] [address] Assigned Pain Medication Provider 12/04/22 04/01/23 [place] [address] [place] [address] Nurse Practitioner Nurse Practitioner 01/17/23 01/17/23 Aubrey Jones MD [address] [place] [address] Cardiovascular Disease 03/28/23 Blanquita Morales Environmental Services Director Diabetes Education 04/25/23 Aubrey Jones MD [address] [place] [address] Assigned Heart and Vascular Provider 05/07/23 documented as of this encounter
--- OUTSIDE RECORDS SUMMARY | 2023-08-03 12:47 | XMS_ITS | Encounter Summary ---
Author Name Unknown Organization [place] Address [address] [place] [address]. [place] [address] Care Team Providers Care Farm Hand Name Role Phone Jovany Gonzalez MD Unavailable CrissyStaci jeong NP Unavailable [phone] Unavailable [phone] Roshni Nascimento RN Unavailable Unavailable Kiet Swain MD Unavailable [phone] Winsome Pike APRN IT SERVICE TECHNICIAN Unavailable [phone] Tori Hines [facility] Unavailable Miranda Queen [facility] Unavailable Unavailable Marisel Armando MD Unavailable Marisel Armando MD Unavailable Inderjit Ugalde MD Unavailable [phone] Wesley Barrett MD Unavailable [phone] Charles Jaramillo PA-C Unavailable +[phone] Dyan Fuentes MD Primary Care Provider +[phone] Dyan Fuentes MD Unavailable +[phone] Katiana Read MD Unavailable [phone] Meme Singleton PhD Unavailable [phone] Regina Garzaine Arelis VIDHI IT SERVICE TECHNICIAN Unavailable +[phone] Mary Del Cid NP Unavailable + [phone] Elham Stack [facility] Unavailable [phone] Emerita Potter [facility] Unavailable [phone] Mary Del Cid SOCIAL MEDIA SR STRATEGY MANAGER Unavailable + [phone] Michelle Guzman DPM, Podiatry /Foot and Ankle Surgery Unavailable Dyan Fuentes MD Unavailable [phone] Mary Del Cid NP Unavailable +2 Aubrey Jones MD Unavailable [phone] Blanquita Morales Unavailable Unavailable Aubrey Jones MD Unavailable + [phone] Reason for Visit * Reason Onset Date Comments MyChart Communication 07/08/2022 Encounter Details Date Type Department Care Team (Latest Contact Info) Description 07/08/2022 MyC Medical Advice [address] [address] Lynda Oliver, [facility] MyChart Communication Social History Tobacco Use Types [...] Answer Date Recorded PHQ-2 Score 0 06/14/2022 [facility] of Occupat ional Health - Occupational [...] Coronavirus/COVID-19? No / Unsure 06/14/2022 2:05 PM HOGSHEAD STRIPPER documented as of this encounter Plan of Treatment Upcoming Encounters Date Type Department Care Team (Late st Contact Info) Description 08/18/2023 3:00 PM HOGSHEAD STRIPPER Office Visit [facility] [address] [facility] [address] [place] [address] Katiana Read MD [address] [place] [address] 200 [place] [address] documented as of this encounter Visit Diagnoses [...] Depression Total Score: 13 022 3:28 PM HOGSHEAD STRIPPER documented as of this encounter Care Teams Farm Hand Relationship Specialty [place] [address] [place] [address] PCP - General Family Medicine 05/18/22 Jovany Gonzalez MD [facility] 66[address] [facility] [address] [place] [address] Orthopedics 02/15/17 Staci Woodward, SOCIAL MEDIA SR STRATEGY MANAGER [place] [address] [place], [place] [address] Nurse Practitioner Nurse Practitioner Psych/Mental Health 05/10/17 Reanna Smith, RD [place] [address] [place] [address] Broodmare Barn Groom Dietitian, Registered 07/25/19 Roshni Nascimento, RN Personal Advocate & Liaison (PAL) Family Medicine 08/18/20 Kiet Swain MD [address] [place], [place] [address] [place], [place] [address] Referring Physician Psychiatry 09/19/20 Winsome Pike, VIDHI IT SERVICE TECHNICIAN [address] [place] [address] Nurse Practitioner Psychiatry 09/19/20 Tori Hines, [facility] [address] [place] [address] Decorator Inspector Decorator Inspector - Clinical 09/19/20 Huong[place] Miranda, [facility] [address] [place] [address] Pharmacist Pharmacist 11/12/20 Marisel Armando MD 909 [place] [address] Gastroenterology 02/05/21 Marisel Armando MD [address] [place] [address] Assigned Gastroenterology Provider 03/08/21 12/24/22 Inderjit Ugalde MD [address] [facility] 300 [place] [address] Assigned Surgical Provider 02/15/21 08/20/22 Wesley Barrett MD 420 [facility] 96 [place] [address] Assigned Neuroscience Provider 05/10/21 Charles Jaramillo PA-C 6545 [facility] 450 [place] [address] Assigned Musculoskeletal Provider 04/26/21 10/15/22 [place] [address] [place] [address] Assigned PCP 05/15/22 Katiana Read MD [address] 200 [place] [address] Assigned Endocrinology Provider 06/19/22 Meme [place] PhD [address] [place] [address] Assigned Behavioral Health Provider 07/03/22 12/31/22 Deena Garza APRN CNP [address] [address] [place] [place] [address] Assigned Pain Medication Provider 07/19/22 10/29/22 [place] [address] [address] [place] [address] Nurse Practitioner Nurse Practitioner 10/18/22 Elham Stack, [facility] 3033 [place] [address] Pharmacist Pharmacist 10/19/22 Emerita Potter, [facility] Clinic Bag Loader Decorator Inspector - Clinical 10/29/22 11/02/22 [place] [address] [place] [place] [address] Assigned Pain Medication Provider 10/30/22 12/03/22 Michelle Guzman DPM, Podiatry/Foot and Ankle Surgery [address] [place] [address] Assigned Musculoskeletal Provider 10/16/22 04/08/23 [place] [address] [address] [facility] [place] [address] Assigned Pain Medication Provider 12/04/22 04/01/23 [place] [address] [address] [place] [address] Nurse Practitioner Nurse Practitioner 01/17/23 01/17/23 Aubrey Jones MD [address] [place] [address] Cardiovascular Disease 03/28/23 Blanquita Morales Broodmare Barn Groom Diabetes Education 04/25/23 Aubrey Jones MD [address] [place] [address] Assigned Heart and Vascular Provider 05/07/23 documented as of this encounter
--- OUTSIDE RECORDS SUMMARY | 2023-08-03 12:47 | XMS_ITS | Encounter Summary ---
Author Name Unknown Organization [place] Address [address] [place] [address]. [place] [address] Care Team Providers Care Preschool Director Name Role Phone Jovany Gonzalez MD Unavailable [phone] CrsisyStaci jeong NP Unavailable [phone] Unavailable Roshni Nascimento RN Unavailable Unavailable Kiet Swain MD Unavailable [phone] Winsome Pike APRN LODGE ATTENDANT Unavailable +[phone] Tori Hines [facility] Unavailable Miranda Queen [facility] Unavailable Unavailable Winsome Pike APRN LODGE ATTENDANT Unavailable [phone] Marisel Armando MD Unavailable Marisel Armando MD Unavailable Inderjit Ugalde MD Unavailable [phone] Wesley Barrett MD Unavailable [phone] Charles Jaramillo PA-C Unavailable +[phone] Dyan Fuentes MD Primary Care Provider +[phone] Dyan Fuentes MD Unavailable [phone] Katiana Read MD Unavailable [phone] Meme Singleton PhD Unavailable +[phone] GregDeena FLAKER TENDER LODGE ATTENDANT Unavailable +[phone] Mary Del Cid TAPE MACHINE TAILER Unavailable +5405 Elham Stack [facility] Unavailable [phone] Emerita Potter [facility] Unavailable [phone] Mary Del Cid TAPE MACHINE TAILER Unavailable +[phone] Michelle Guzman DPM, Podiatry /Foot and Ankle Surgery Unavailable Dyan Fuentes MD Unavailable [phone] Mary Del Cid NP Unavailable +5406 Aubrey Jones MD Unavailable [phone] Blanquita Morales Unavailable Unavailable Aubrey Jones MD Unavailable [phone] Encounter Details Date Type Department Care Team (Late st Contact Info) Description 06/15/2022 [facility] [address] [address] Gavin Patel Social History Tobacco [...] Answer Date Recorded PHQ-2 Score 0 06/14/2022 [facility] of Occupat ional Health - Occupational [...] Coronavirus/COVID-19? No / Unsure 06/14/2022 2:05 PM FRONT END TECHNICIAN documented as of this encounter Plan of Treatment Upcoming Encounters Date Type Department Care Team (Late st Contact Info) Description 08/18/2023 3:00 PM FRONT END TECHNICIAN Office Visit [facility] [address] [facility] [address] [place] [address] Katiana Read MD [address] [place] [address] [address] [place] [address] documented as of this encounter Visit Diagnoses [...] Depression Total Score: 13 022 3:28 PM FRONT END TECHNICIAN documented as of this encounter Care Teams Preschool Director Relationship Specialty [place] [address] [place] [address] PCP - General Family Medicine 05/18/22 Jovany Gonzalez MD [facility] 6600 [facility] [address] [place], [place] [address] Orthopedics 02/15/17 Staci Woodward, TAPE MACHINE TAILER [place] [address] [place], [place] 539[address] Nurse Practitioner Nurse Practitioner Psych/Mental Health 05/10/17 Reanna Smith, RD [place] [address] [place], [place] 3698[address] Civil Attorney Dietitian, Registered 07/25/19 Roshni Nascimento, RN Personal Advocate & Liaison (PAL) Family Medicine 08/18/20 Kiet Swain MD [address] [place], [place] [address] [place] [address] Referring Physician Psychiatry 09/19/20 Winsome Pike APRN LODGE ATTENDANT [address] [place], [place] 48[address] Nurse Practitioner Psychiatry 09/19/20 Tori Hines, [facility] [employer] [facility] [place], [place] [address] Door Manager Door Manager - Clinical 09/19/20 Miranda Queen [facility] [address] [place] [address] Pharmacist Pharmacist 11/12/20 Winsome Pike APRN LODGE ATTENDANT [address] [address] Assigned Behavioral Health Provider 01/04/21 07/02/22 Marisel Armando MD [address] [place] [address] Gastroenterology 02/05/21 Marisel Armando MD [address] [place] [address] 204165 Assigned Gastroenterology Provider 03/08/21 12/24/22 Inderjit Ugalde MD [address] [facility] 300 [place] [address] Assigned Surgical Provider 02/15/21 08/20/22 Wesley Barrett MD 420 [facility] 96 [place] [address] Assigned Neuroscience Provider 05/10/21 Charles Jaramillo PA-C 6545 [facility] 450 [place] [address] Assigned Musculoskeletal Provider 04/26/21 10/15/22 [place] [address] [place] [address] Assigned PCP 05/15/22 Katiana Read MD [address] [place] [address] 200 [place] [address] Assigned Endocrinology Provider 06/19/22 [place] [address] [place] [address] Assigned Behavioral Health Provider 07/03/22 12/31/22 Deena Garza APRN LODGE ATTENDANT [address] [place] [address] Assigned Pain Medication Provider 07/19/22 10/29/22 Mary Del Cid, RAFAEL [address] [place] [address] Nurse Practitioner Nurse Practitioner 10/18/22 Elham Stack, [facility] 3033 [place], [place] [address] Pharmacist Pharmacist 10/19/22 Emerita Potter, [facility] Clinic Taximeter Repairer Door Manager - Clinical 10/29/22 11/02/22 Mary Del Cid, RAFAEL [address] [place] [address] Assigned Pain Medication Provider 10/30/22 12/03/22 Michelle Guzman, DPM, Podiatry/Foot and Ankle Surgery [address] [place] [address] Assigned Musculoskeletal Provider 10/16/22 04/08/23 [place] [address] [place] [address] Assigned Pain Medication Provider 12/04/22 04/01/23 [place] [address] [place] [address] Nurse Practitioner Nurse Practitioner 01/17/23 01/17/23 Aubrey Jones MD [address] [place] [address] Cardiovascular Disease 03/28/23 Blanquita Morales Civil Attorney Diabetes Education 04/25/23 Aubrey Jones MD [address] [place] [address] Assigned Heart and Vascular Provider 05/07/23 documented as of this encounter
--- OUTSIDE RECORDS SUMMARY | 2023-08-03 12:47 | XMS_ITS | Encounter Summary ---
Author Name Unknown Organization [facility] Address [address] [place] [address]. [place] [address] Care Team Providers Care Matrix Worker Name Role Phone Jovany Gonzalez MD Unavailable CrissyStaci jeong NP Unavailable [phone] Unavailable Roshni Nascimento RN Unavailable Unavailable Kiet Swain MD Unavailable [phone] Winsome Pike APRN RAW SHELLFISH PREPARER Unavailable [phone] Tori Hines [facility] Unavailable Miranda Queen [facility] Unavailable Unavailable Marisel Armando MD Unavailable Marisel Armando MD Unavailable Inderjit Ugalde MD Unavailable [phone] Wesley Barrett MD Unavailable [phone] Charles Jaramillo PA-C Unavailable [phone] Dyan Fuentes MD Primary Care Provider [phone] yDan Fuentes MD Unavailable [phone] Katiana Read MD Unavailable [phone] Meme Singleton PhD Unavailable [phone] Deena Garza APRN RAW SHELLFISH PREPARER Unavailable [phone] Reason for Visit * Reason Onset Date Comments Opioid Refill 08/19/2022 buprenorphine HC l-naloxone HCl (SUBOXONE) 2-0.5 MG per film Encounter Details Date Type Department Care Team (Late st Contact Info) Description 08/19/2022 Refill [facility] [place] [address] [facility] [address] [place], [place] [address] [place] [address] [place] [address] Opioid Refill (buprenorphine HCl-naloxone HCl (SUBOXONE) 2-0.5 [...] often do you attend chur ch or jainism services? 1 to 4 times [...] Answer Date Recorded PHQ-2 Score 0 06/14/2022 [facility] - Occupational Stress Questionnaire Answer [...] Coronavirus/COVID-19? Unable to assess 08/18/2022 11:00 AM HAT BAND ATTACHER documented as of this encounter Miscellaneous Notes * Telephone Encounter - Caryl Wheeler MA - 08/19/2022 3:10 PM CST Valopaa message sent with Rx approval from provider. [facility] Team BAND ATTACHER * Telephone Encounter - Mary Del Cid NP - 08/19/2022 2:28 PM HAT BAND ATTACHER Script Eprescribed to pharmacy [place] Prescription Monitoring [...] 08/22/22 start 08/24/22 Mary Del Cid NP BAND ATTACHER * Telephone Encounter - Blanquita Perera RN [...] 60 Film; Refill: 0 Blanquita LEAHY, RN Document Analyst [facility] BAND ATTACHER * Telephone Encounter - Cyndee Leija CMA [...] Date of opioid agreement: 12/17/21 E-prescribe to: [facility] [place], [address] Will route to nursing [place] for review and preparation of prescription(s). BAND ATTACHER documented in this encounter Plan of Treatment Upcoming Encounters Date Type Department Care Team (Late st Contact Info) Description 08/18/2023 3:00 PM HAT BAND ATTACHER Office Visit [facility] [address] [facility] [address] [place] [phone] Katiana Read MD [address] [place] [address] documented as of this encounter Visit Diagnoses Diagnosis Chronic pain syndrome documented in this encounter Additional Health Concerns Assessment Noted Time PHQ-9 Depression Total Score: 13 022 3:28 PM HAT BAND ATTACHER documented as of this encounter Care Teams Matrix Worker Relationship Specialty [place] [address] [place] [address] PCP - General Family Medicine 05/18/22 Jovany Gonzalez MD [facility] [address] [facility] [address] [place] [address] Orthopedics 02/15/17 Staci Woodward, HOUSE CARPENTER HELPER [place] [address] [place] [address] Nurse Practitioner Nurse Practitioner Psych/Mental Health 05/10/17 Reanna Smith, RD [facility] [address] [place], [place] [address] Upholsterer Apprentice Dietitian, Registered 07/25/19 Roshni Nascimento, RN Personal Advocate & Liaison (PAL) Family Medicine 08/18/20 Kiet Swain MD [address] [place] [address] [id number] Referring Physician Psychiatry 09/19/20 Winsome Pike APRN RAW SHELLFISH PREPARER [facility] [address] [address] Nurse Practitioner Psychiatry 09/19/20 Tori Hines, [facility] [address] [place] [id number] Mixed Animal Veterinarian Mixed Animal Veterinarian - Clinical 09/19/20 Miranda Queen [facility] [address] [place] [address] Pharmacist Pharmacist 11/12/20 Marisel Armando MD 9 [place] [address] Gastroenterology 02/05/21 Marisel Armando MD [address] [place] [address] Assigned Gastroenterology Provider 03/08/21 12/24/22 Inderjit Ugalde MD [address] [facility] 300 [place] [address] Assigned Surgical Provider 02/15/21 08/20/22 Wesley Barrett MD [address] [facility] 96 [place] [address] Assigned Neuroscience Provider 05/10/21 Charles Jaramillo PA-C [address] [facility] [address] [place] [address] Assigned Musculoskeletal Provider 04/26/21 10/15/22 [place] [address] [place] [address] Assigned PCP 05/15/22 Katiana Read MD [address] [facility] 200 [place] [address] Assigned Endocrinology Provider 06/19/22 Meme Singleton[place] PhD [address] [place] [address] Assigned Behavioral Health Provider 07/03/22 12/31/22 Deena Garza, GROUP HOME WORKER RAW SHELLFISH PREPARER [address] [place] [address] Assigned Pain Medication Provider 07/19/22 10/29/22 documented as of this encounter
--- OUTSIDE RECORDS SUMMARY | 2023-08-03 12:47 | XMS_ITS | Encounter Summary ---
Author Name Unknown Organization [facility] Address [address] [place] [address]. [place] [address] Care Team Providers Care Metal Sheet Roller Operator Name Role Phone Jovany Gonzalez MD Unavailable CrissyStaci jeong MANUFACTURING SUPERVISOR Unavailable [phone] Unavailable Roshni Nascimento RN Unavailable Unavailable Kiet Swain MD Unavailable [phone] Winsome Pike APRN CONSULTING SERVICES MANAGER Unavailable [phone] Tori Hines [facility] Unavailable Miranda Queen [facility] Unavailable Unavailable Marisel Armando MD Unavailable Marisel Armando MD Unavailable Wesley Barrett MD Unavailable [phone] Charles Jaramillo PA-C Unavailable [phone] Dyan Fuentes MD Primary Care Provider [phone] Dyan Fuentes MD Unavailable [phone] Katiana Read MD Unavailable [phone] Meme Singleton PhD Unavailable [phone] Deena Garza ART CONSERVATOR CONSULTING SERVICES MANAGER Unavailable [phone] Reason for Visit * Reason Onset Date Comments Opioid Refill 09/20/2022 buprenorphine HC l-naloxone HCl (SUBOXONE) 2-0.5 MG per film Encounter Details Date Type Department Care Team (Late st Contact Info) Description 09/20/2022 Refill [facility] [place] [address] [facility] [address] [place], [place] [address] [place] [address] [place] [place] [id number] Opioid Refill ( buprenorphine HCl-naloxone HCl (SUBOXONE) [...] Answer Date Recorded PHQ-2 Score 0 06/14/2022 [facility] - Occupational Stress Questionnaire Answer Date [...] Coronavirus/COVID-19? No / Unsure 09/06/2022 2:05 PM LEAD CARGO MOVER documented as of this encounter Miscellaneous Notes * Telephone Encounter - Leeann Echevarria MA - 09/21/2022 8:22 AM CDT LVM, notified that prescription was sent to preferred pharmacy. Able to fill 09/21/22 and start 09/23/22 Leeann Echevarria MA [facility] Center [...] 60 Film; Refill: 0 Blanquita LEAHY, RN Solutions Manager [facility] * Telephone Encounter - Cyndee [...] Date of opioid agreement: 12/17/21 E-prescribe to: [facility] - [address] Will route to [facility] for review and preparation of prescription(s). * Telephone Encounter - Janine Argueta RN - 09/20/2022 11:15 AM CDT Will route to [facility] for assistance with gathering opioid refill information. Janine Raymundo RN Solutions Manager [facility] * Telephone Encounter - Herlinda Benites - 09/20/2022 10:57 AM CDT [facility] Call Center Phone Message May a detailed message be left on voicemail: yes Reason for Call: Medication Refill Request Has the patient contacted the pharmacy for the refill? Yes Name of medication being requested: buprenorphine HCl-naloxone HCl (SUBOXONE) 2- 0.5 MG per film Provider who prescribed the medication: Maurice Cee NP Pharmacy: [facility] - [address] Date medication is needed: 3 days Action Taken: Message routed to: Other: [facility] Pain Travel Screening: Not Applicable documented in this encounter Plan of Treatment Upcoming Encounters Date Type Department Care Team (Late st Contact Info) Description 08/18/2023 3:00 PM LEAD CARGO MOVER Office Visit [facility] [address] [facility] [address] [place] [phone] Katiana Read MD [address] [facility] 200 [place], [place] [address] documented as of this encounter Visit Diagnoses Diagnosis Chronic pain syndrome documented in this encounter Additional Health Concerns Assessment Noted Time PHQ-9 Depression Total Score: 13 022 3:28 PM LEAD CARGO MOVER documented as of this encounter Care Teams Metal Sheet Roller Operator Relationship Specialty [place] [address] [place] [address] PCP - General Family Medicine 05/18/22 Jovany Gonzalez MD [facility] [address] [facility] 605 [place] [address] Orthopedics 02/15/17 Staci Woodward NP [facility] [address] [place] [address] Nurse Practitioner Nurse Practitioner Psych/Mental Health 05/10/17 Reanna Smith, [facility] [address] [place] [address] Securities Vault Supervisor Dietitian, Registered 07/25/19 Roshni Nascimento, RN Personal Advocate & Liaison (PAL) Family Medicine 08/18/20 Kiet Swain MD [facility] [address] [place], [place] [address] Referring Physician Psychiatry 09/19/20 Winsome Pike, VIDHI CONSULTING SERVICES MANAGER [address] [address] Nurse Practitioner Psychiatry 09/19/20 Tori Hines, [facility] [place], [place] [id number] Print Cutter Print Cutter - Clinical 09/19/20 Miranda Queen [facility] [address] [place] [address] Pharmacist Pharmacist 11/12/20 Marisel Armando MD [address] [place] [address] 8544[address] Gastroenterology 02/05/21 Marisel Armando MD [address] [place] [address] 688835 Assigned Gastroenterology Provider 03/08/21 12/24/22 Wesley Barrett MD [address] [place] [address] 96 [place], [place] [address] Assigned Neuroscience Provider 05/10/21 Charles Jaramillo PA-C [address] [place] [address] Assigned Musculoskeletal Provider 04/26/21 10/15/22 [place] [address] [place] [address] Assigned PCP 05/15/22 Katiana Read MD [address] [facility] [address] [place] [address] Assigned Endocrinology Provider 06/19/22 Meme Singleton, PhD [address] [place] [address] Assigned Behavioral Health Provider 07/03/22 12/31/22 Deena Garza, ART CONSERVATOR CONSULTING SERVICES MANAGER [address] [place] [address] Assigned Pain Medication Provider 07/19/22 10/29/22 documented as of this encounter
--- OUTSIDE RECORDS SUMMARY | 2023-08-03 12:48 | XMS_ITS | Encounter Summary ---
Author Name Unknown Organization [facility] Address [address] [place] [address]. [place] [address] Care Team Providers Care Industrial Property Appraiser Name Role Phone Jovany Gonzalez MD Unavailable CrissyStaci jeong NP Unavailable [phone] Unavailable [phone] Roshni Nascimento RN Unavailable Unavailable Kiet Swain MD Unavailable [phone] Winsome Pike APRN OAKES MACHINE OPERATOR Unavailable [phone] Tori Hines [facility] Unavailable Miranda Queen [facility] Unavailable Unavailable Winsome Pike APRN OAKES MACHINE OPERATOR Unavailable [phone] Marisel Armando MD Unavailable Marisel Armando MD Unavailable Inderjit Ugalde MD Unavailable [phone] Wesley Barrett MD Unavailable [phone] Charles Jaramillo PA-C Unavailable [phone] Dyan Fuentes MD Primary Care Provider [phone] Dyan Fuentes MD Unavailable [phone] Katiana Read MD Unavailable [phone] Meme Singleton PhD Unavailable [phone] Deena Garza APRN OAKES MACHINE OPERATOR Unavailable [phone] Mary Del Cid NP Unavailable + [phone] Elham Stack [facility] Unavailable [phone] Emerita Potter [facility] Unavailable [phone] Mary Del Cid NP Unavailable + [phone] Michelle Guzman DPM, Podiatry /Foot and Ankle Surgery Unavailable Dyan Fuentes MD Unavailable [phone] Mary Del Cid NP Unavailable + [phone] Aubrey Jones MD Unavailable [phone] Blanquita Morales Unavailable Unavailable Aubrey Jones MD Unavailable [phone] Reason for Visit * Reason Onset Date Comments Medication Request 06/07/2022 buprenorphine HCl-naloxone HCl (SUBOXONE) 2-0.5 MG per film Encounter Details Date Type Department Care Team (Late st Contact Info) Description 06/07/2022 [facility] [address] [id number] Deena Garza, VIDHI OAKES MACHINE OPERATOR [address] [place] [address] Medication Request (buprenorphine HCl-naloxone HCl (SUBOXONE) 2-0.5 [...] Answer Date Recorded PHQ-2 Score 2 05/07/2022 [facility] [place] [facility] Occupat ional Health - Occupational Stress [...] to have Coronavirus/COVID-19? Yes 05/17/2022 9:54 AM DRAMATIC TEACHER documented as of this encounter Miscellaneous [...] film and taken TID. Blanquita LEAHY, RN Hvac Refrigeration Technician [facility] ATIC TEACHER * Telephone Encounter - Wanda Diehl CMA - 06/08/2022 2:25 PM DRAMATIC TEACHER Patient requesting refill(s) of buprenorphine HCl-naloxone HCl (SUBOXONE) 2-0.5 MG per film Last dispensed from pharmacy on 05/03/22 Patient's last office/virtual visit by prescribing provider on 04/13/22 Next office/virtual appointment scheduled for None Last urine drug screen date 12/17/21 Current opioid agreement on file (completed within the last year) Yes Date of opioid agreement: 12/18/21 E-prescribe to [facility] [place] [place] Will route to nursing [place] for review and preparation of prescription(s). ATIC TEACHER * Telephone Encounter - Misty Monroy - 06/07/2022 8:45 AM CST [facility] Call Center Phone Message May a detailed message be left on voicemail: yes Reason for Call: Medication Refill Request Has the patient contacted the pharmacy for the refill? Yes Name of medication being requested: buprenorphine HCl-naloxone HCl (SUBOXONE) 2- 0.5 MG per film Provider who prescribed the medication: Deena Garza APRN CNP Pharmacy: [address] Date medication is needed: 06/08/2022 Patient would like to follow up with Mary Del Cid APRN, CNP per Nguyen Garza APRN, CNP, please call patient to schedule. Action Taken: Message routed to: Other: [facility] Pain Travel Screening: Not Applicable ATIC TEACHER documented in this encounter Plan of Treatment Upcoming Encounters Date Type Department Care Team (Late st Contact Info) Description 08/18/2023 3:00 PM DRAMATIC TEACHER Office Visit [facility] [address] [place] [phone] Katiana Read MD [address] [place] [address] documented as of this encounter Visit Diagnoses [...] as of this encounter Care Teams Industrial Property Appraiser Relationship Specialty [place] [address] [place] [address] PCP - General Family Medicine 05/18/22 Jovany Gonzalez MD [facility] [address] [facility] 605 [place] [address] Orthopedics 02/15/17 Staci Woodward, RETAIL ADMINISTRATIVE ASSISTANT [place] [address] [place] [address] Nurse Practitioner Nurse Practitioner Psych/Mental Health 05/10/[address] [place] [address] [place] [address] Dog Beautician Dietitian, Registered 07/25/19 Roshni Nascimento, RN Personal Advocate & Liaison (PAL) Family Medicine 08/18/20 Kiet Swain MD [address] [facility] [address] [place], [place] [address] Referring Physician Psychiatry 09/19/20 Winsome Pike APRN OAKES MACHINE OPERATOR [address] [place] [address] 699044 Nurse Practitioner Psychiatry 09/19/20 Tori Hines, [facility] [place], [place] 18[address] Call Center Trainer Call Center Trainer - Clinical 09/19/20 Miranda Queen [facility] [address] [place] [address] Pharmacist Pharmacist 11/12/20 Winsome Pike APRN OAKES MACHINE OPERATOR [address] [place] [address] 369354 Assigned Behavioral Health Provider 01/04/21 07/02/22 Marisel Armando MD [address] [place] [address] [id number] Gastroenterology 02/05/21 Marisel Armando MD [address] [place] [address] Assigned Gastroenterology Provider 03/08/21 12/24/22 Inderjit Ugalde MD [address] [address] Assigned Surgical Provider 02/15/21 08/20/22 Wesley Barrett MD [address] [place] [address] Assigned Neuroscience Provider 05/10/21 Charles Jaramillo PA-C [address] [facility] 450 [place] [address] Assigned Musculoskeletal Provider 04/26/21 10/15/22 [place] [address] [place] [address] Assigned PCP 05/15/22 Katiana Read MD [address] [place] [address] 200 [place] [address] Assigned Endocrinology Provider 06/19/22 Meme [place] PhD [address] [place] [address] Assigned Behavioral Health Provider 07/03/22 12/31/22 Deena Garza APRN OAKES MACHINE OPERATOR [address] [place] [address] Assigned Pain Medication Provider 07/19/22 10/29/22 Mary Del Cid, RAFAEL [address] [place] [address] Nurse Practitioner Nurse Practitioner 10/18/22 Elham Stack, [facility] [address] [place] [address] Pharmacist Pharmacist 10/19/22 Emerita Potter, [facility] Clinic Hvac Refrigeration Technician Call Center Trainer - Clinical 10/29/22 11/02/22 [place] [address] [address] [place] [address] Assigned Pain Medication Provider 10/30/22 12/03/22 Michelle Guzman, DPM, Podiatry/Foot and Ankle Surgery [address] [place] [place] [address] Assigned Musculoskeletal Provider 10/16/22 04/08/23 [place] [address] [place] [address] Assigned Pain Medication Provider 12/04/22 04/01/23 [place] [address] [place] [address] Nurse Practitioner Nurse Practitioner 01/17/23 01/17/23 Aubrey Jones MD [address] [place] [address] Cardiovascular Disease 03/28/23 Blanquita Morales Dog Beautician Diabetes Education 04/25/23 Aubrey Jones MD [address] [place] [address] Assigned Heart and Vascular Provider 05/07/23 documented as of this encounter
--- OUTSIDE RECORDS SUMMARY | 2023-08-03 12:48 | XMS_ITS | Encounter Summary ---
Author Name Unknown Organization [facility] Address [address] [place] [address]. [place] [address] Care Team Providers Care Route Sales Person Name Role Phone Jovany Gonzalez MD Unavailable CrissyStaci jeong NP Unavailable [phone] Unavailable Roshni Nascimento RN Unavailable Unavailable Kiet Swain MD Unavailable [phone] Winsome Pike APRN GLUER MACHINE SETUP OPERATOR Unavailable +[phone] Tori Hines [facility] Unavailable Miranda Queen [facility] Unavailable Unavailable Winsome Pike APRN GLUER MACHINE SETUP OPERATOR Unavailable +[phone] Marisel Armando MD Unavailable Marisel Armando MD Unavailable Inderjit Ugalde MD Unavailable +[phone] Wesley Barrett MD Unavailable +[phone] Charles Jaramillo PA-C Unavailable +[phone] Dyan Fuentes MD Primary Care Provider +[phone] Dyan Fuentes MD Unavailable [phone] Katiana Read MD Unavailable [phone] Meme Sinlgeton PhD Unavailable +[phone] GregDeena Lashell HR OPERATIONS ADVISOR GLUER MACHINE SETUP OPERATOR Unavailable +[phone] Mary Del Cid NP Unavailable + [phone] Elham Stack [facility] Unavailable +[phone] Emerita Potter [facility] Unavailable +[phone] Mary Del Cid SHELL MACHINE OPERATOR Unavailable + [phone] Michelle Guzman DPM, Podiatry /Foot and Ankle Surgery Unavailable Dyan Fuentes MD Unavailable [phone] Mary Del Cid NP Unavailable + [phone] Aubrey Jones MD Unavailable +[phone] Blanquita Morales Unavailable Unavailable Encounter Details Date Type Department Care Team (Late st Contact Info) Description 06/14/2022 Telephone [facility] [address] [facility] [address] [place] [address] Katiana Read MD [address] [place] [address] Social History Tobacco Use Types [...] you attend [facility] or rastafarian services? 1 to 4 times [...] Answer Date Recorded PHQ-2 Score 2 11/25/2022 [facility] - Occupational Stress Questionnaire Answer [...] Contact Info) Description 08/18/2023 3:00 PM HAND THERAPIST Office Visit [facility] [address] [place] [address] [place] [address] Katiana Read MD [address] [place] [address] documented as of this encounter Visit Diagnoses [...] Depression Total Score: 13 022 3:28 PM HAND THERAPIST documented as of this encounter Care Teams Route Sales Person Relationship Specialty [place] [address] [place] [address] PCP - General Family Medicine 05/18/22 Jovany Gonzalez MD [facility] [address] [facility] [address] [place], [place] 59[address] Orthopedics 02/15/17 Staci Woodward NP [place] [facility] [address] [place], [place] 247877 Nurse Practitioner Nurse Practitioner Psych/Mental Health 05/10/17 eRanna Smith, RD [place] [facility] [address] [place], [place] 0[address] Manager Secondary Dietitian, Registered 07/25/19 Roshni Nascimento, RN Personal Advocate & Liaison (PAL) Family Medicine 08/18/20 Kiet Swain MD [address] [place] [address] 444174 Referring Physician Psychiatry 09/19/20 Winsome Pike APRN GLUER MACHINE SETUP OPERATOR [address] [place] [address] 465804 Nurse Practitioner Psychiatry 09/19/20 Tori Hines, [facility] [address] [place] [address], [place] [address] High School Social Studies Teacher High School Social Studies Teacher - Clinical 09/19/20 Miranda Queen [facility] [address] [facility] [place] [address] Pharmacist Pharmacist 11/12/20 Winsome Pike APRN GLUER MACHINE SETUP OPERATOR [address] [id number] Assigned Behavioral Health Provider 01/04/21 07/02/22 Marisel Armando MD [address] [place] [address] [phone] Gastroenterology 02/05/21 Marisel Armando MD [address] [place] [address] [id number] Assigned Gastroenterology Provider 03/08/21 12/24/22 Inderjit Ugalde MD [address] [facility] 300 [place] [address] Assigned Surgical Provider 02/15/21 08/20/22 Wesley Barrett MD [address] [facility] 96 [place], [place] 5404[address] Assigned Neuroscience Provider 05/10/21 Charles Jaramillo PA-C [address] [facility] [address] [address] Assigned Musculoskeletal Provider 04/26/21 10/15/22 [place] [address] [place] [address] Assigned PCP 05/15/22 Katiana Read MD [address] [facility] 200 [place] [address] Assigned Endocrinology Provider 06/19/22 [place] [address] [facility] [place] [place] [address] Assigned Behavioral Health Provider 07/03/22 12/31/22 Deena Garza, HR OPERATIONS ADVISOR GLUER MACHINE SETUP OPERATOR [address] [facility] [place] [address] Assigned Pain Medication Provider 07/19/22 10/29/22 Mary Del Cid, [place] [address] [place] [address] Nurse Practitioner Nurse Practitioner 10/18/22 Elham Stack, [facility] [address] [place], [place] 45[address] Pharmacist Pharmacist 10/19/22 Emerita Potter, [facility] Clinic Child And Family Counselor High School Social Studies Teacher - Clinical 10/29/22 11/02/22 Mary Del Cid, [place] [address] [address] Assigned Pain Medication Provider 10/30/22 12/03/22 Michelle Guzman, DPM, Podiatry/Foot and Ankle Surgery [address] [place] [address] Assigned Musculoskeletal Provider 10/16/22 04/08/23 [place] [address] [place] [address] Assigned Pain Medication Provider 12/04/22 04/01/23 [place] [address] [place] [address] Nurse Practitioner Nurse Practitioner 01/17/23 01/17/23 Aubrey Jones MD [address] [place] [address] Cardiovascular Disease 03/28/23 Blanquita Morales Manager Secondary Diabetes Education 04/25/23 documented as of this encounter
--- OUTSIDE RECORDS SUMMARY | 2023-08-03 12:48 | XMS_ITS | Encounter Summary ---
Author Name Unknown Organization [facility] Address [address] [place] [address]. [place] [address] Care Team Providers Care General Education Professor Name Role Phone Len Adhikari MD Primary Care Provider + [phone] Jovany Gonzalez MD Unavailable [facility] Hospital[facility] NP Unavailable [phone] Unavailable [phone] Roshni Nascimento RN Unavailable Unavailable Kiet Swain MD Unavailable [phone] Winsome Pike APRN CLASSROOM COORDINATOR Unavailable +[phone] Tori HinesSW Unavailable Miranda Queen [facility] Unavailable Unavailable Winsome Pike APRN CLASSROOM COORDINATOR Unavailable +[phone] Marisel Armando MD Unavailable Marisel Armando MD Unavailable Inderjit Ugalde MD Unavailable [phone] Wesley Barrett MD Unavailable [phone] Charles Jaramillo PA-C Unavailable +[phone] Miranda Queen [facility] Unavailable Unavailable Leeann Rinaldi MD Unavailable Miranda Queen [facility] Unavailable Unavailable Dyan Fuentes MD Primary Care Provider [phone] Dyan Fuentes MD Unavailable + [phone] Katiana Read MD Unavailable +[phone] Meme Singleton PhD Unavailable + Greg Deena Lashell GUTTER INSTALLER CLASSROOM COORDINATOR Unavailable +[phone] Mary Del Cid NP Unavailable +[phone] SreekanthElham Anthony [facility] Unavailable +[phone] AbbeyEmerita Alisha [facility] Unavailable +[phone] Mary Del Cid NP Unavailable +[phone] Michelle Guzman DPM, Podiatry /Foot and Ankle Surgery Unavailable Dyan Fuentes MD Unavailable + [phone] Mary Del Cid NP Unavailable +[phone] Aubrey Jones MD Unavailable [phone] Blanquita Morales Unavailable Unavailable Aubrey Jones MD Unavailable + [phone] Encounter Details Date Type Department Care Team (Late st Contact Info) Description 02/11/2022 [facility] Medical Advice [address] [address] Lynda Oliver, [facility] Social History Tobacco Use Types Packs/Day Years [...] Answer Date Recorded PHQ-2 Score 2 02/02/2021 [facility] of Occupat ional [...] Contact Info) Description 08/18/2023 3:00 PM FREIGHT CALLER Office Visit [facility] [address] [facility] [address] [place] [address] Katiana Read MD [address] [facility] [address] [place] [address] documented as of this encounter Visit Diagnoses [...] documented as of this encounter Care Teams General Education Professor Relationship Specialty Start Date End Date Len Adhikari MD PCP - General Family Practice 11/08/16 05/09/22 [place] [address] [place] [address] PCP - General Family Medicine 05/18/22 Jovany Gonzalez MD [facility] [address] [facility] [address] [place], [place] [address] Orthopedics 02/15/17 Staci Woodward [facility] [place] [address] [place], [place] 89[address] Nurse Practitioner Nurse Practitioner Psych/Mental Health 05/10/17 Reanna Smith, LAURA [facility] [address] [place], [place] 3824[address] Molding Plasterer Dietitian, Registered 07/25/19 Roshni Nascimento, RN Personal Advocate & Liaison (PAL) Family Medicine 08/18/20 Kiet Swain MD [address] [facility] [address] [place], [place] 48[address] Referring Physician Psychiatry 09/19/20 Winsome Pike APRN CLASSROOM COORDINATOR [address] [address] Nurse Practitioner Psychiatry 09/19/20 Tori Hines, [facility] [address] [place], [place] 44[address] Altitude Chamber Technician Altitude Chamber Technician - Clinical 09/19/20 Miranda Queen, [facility] [address] [place] [address] Pharmacist Pharmacist 11/12/20 Winsome Pike APRN CLASSROOM COORDINATOR [facility] [address] [address] Assigned Behavioral Health Provider 01/04/21 07/02/22 Marisel Armando MD [address] [place] [address] [id number] Gastroenterology 02/05/21 Marisel Armando MD [address] [place] [address] [phone] Assigned Gastroenterology Provider 03/08/21 12/24/22 Inderjit Ugalde MD [address] [facility] 300 [place], [place] 86[address]87 Assigned Surgical Provider 02/15/21 08/20/22 Wesley Barrett MD [address] [place] [address] 96 [place], [place] [address] Assigned Neuroscience Provider 05/10/21 Charles Jaramillo PA-C [address] 334245 Assigned Musculoskeletal Provider 04/26/21 10/15/22 [facility] [address] [place] [address] Assigned MTM Pharmacist 12/05/21 03/26/22 [place] [address] [place] [address] Assigned PCP 01/23/22 05/14/22 Miranda Queen [facility] [address] [place] [address] Assigned MTM Pharmacist 04/07/22 05/14/22 [place] [address] [place] [address] Assigned PCP 05/15/22 Katiana Read MD [address] [place] [address] Assigned Endocrinology Provider 06/19/22 Meme Singleton, PhD [address] [place] [address] Assigned Behavioral Health Provider 07/03/22 12/31/22 Deena Garza, GUTTER INSTALLER CLASSROOM COORDINATOR [address] [place] [address] Assigned Pain Medication Provider 07/19/22 10/29/22 Mary Del Cid, RAFAEL [address] [place] [address] Nurse Practitioner Nurse Practitioner 10/18/22 Elham Stack, [facility] 30[address] [place] [address] Pharmacist Pharmacist 10/19/22 Emerita Potter, [facility] Clinic Modeler Altitude Chamber Technician - Clinical 10/29/22 11/02/22 Mary Del Cid, RAFAEL [address] [place] [address] Assigned Pain Medication Provider 10/30/22 12/03/22 Michelle Guzman, DPM, Podiatry/Foot and Ankle Surgery [address] [place] [address] Assigned Musculoskeletal Provider 10/16/22 04/08/23 [place] [address] [place] [address] Assigned Pain Medication Provider 12/04/22 04/01/23 [place] [address] [place] [address] Nurse Practitioner Nurse Practitioner 01/17/23 01/17/23 Aubrey Jones MD [address] [place] [address] Cardiovascular Disease 03/28/23 Blanquita Morales Molding Plasterer Diabetes Education 04/25/23 Aubrey Jones MD [address] [place] [address] Assigned Heart and Vascular Provider 05/07/23 documented as of this encounter
--- OUTSIDE RECORDS SUMMARY | 2023-08-03 12:48 | XMS_ITS | Encounter Summary ---
Author Name Unknown Organization [facility] Address [address] [place] [address]. [place] [address] Care Team Providers Care Arm Maker Name Role Phone Len Adhikari MD Primary Care Provider + [phone] Jovany Gonzalez MD Unavailable [facility] NP Unavailable [phone] Unavailable [phone] Roshni Nascimento RN Unavailable Unavailable Kiet Swain MD Unavailable [phone] Winsome Pike APRN WELDER [employer]ODUCTION LINE GAS Unavailable +[phone] Tori HinesSW Unavailable Miranda Queen [facility] Unavailable Unavailable Winsome Pike APRN [employer] Unavailable +[phone] Marisel Armando MD Unavailable Marisel Armando MD Unavailable Inderjit Ugalde MD Unavailable [phone] Wesley Barrett MD Unavailable +[phone] Charles Jaramillo PA-C Unavailable +[phone] Miranda Queen [facility] Unavailable Unavailable Leeann Rinaldi MD Unavailable Miranda Queen [facility] Unavailable Unavailable Dyan Fuentes MD Primary Care Provider +[phone] Dyan Fuentes MD Unavailable + [phone] Katiana Read MD Unavailable +[phone] Meme Singleton PhD Unavailable + Greg Deena Lashell SEWER AND CUTTER FINGER BUFF MATERIAL [employer] Unavailable +[phone] Mary Del Cid NP Unavailable +5400 Sreekanth Elham Anthony [facility] Unavailable +[phone] AbbeyEmerita Alisha PUBLICITY EXPERT Unavailable +[phone] Mary Del Cid NP Unavailable +[phone] Michelle Guzman DPM, Podiatry /Foot and Ankle Surgery Unavailable Dyan Fuentes MD Unavailable + [phone] Mary Del Cid NP Unavailable +[phone] Aubrey Jones MD Unavailable + [phone] Blanquita Morales Unavailable Unavailable Aubrey Jones MD Unavailable + [phone] Encounter Details Date Type Department Care Team (Late st Contact Info) Description 02/11/2022 [facility] Medical Advice [address] [address] Lynda Oliver, MANAGING CONSULTANT Social History Tobacco Use Types Packs/Day Years [...] Date Recorded PHQ-2 Score 2 02/02/2021 [facility]at [facility] Health - [...] st Contact Info) Description 08/18/2023 3:00 PM AUTOMATED LOGISTICS SPECIALIST Office Visit [facility] [address] [facility] [address] [place] [address] Katiana Read MD [address] [place] [address] documented as of this encounter Visit Diagnoses [...] documented as of this encounter Care Teams Arm Maker Relationship Specialty Start Date End Date Len Adhikari MD PCP - General Family Practice 11/08/16 05/09/22 [place] [address] [place] [address] PCP - General Family Medicine 05/18/22 Jovany Gonzalez MD [facility] [address] [facility] [address] [place] [address] Orthopedics 02/15/17 Staci Woodward, MERCHANDISER SEASONAL [place] [address] [place], [place] 6723[address] Nurse Practitioner Nurse Practitioner Psych/Mental Health 05/10/17 Reanna Smith, LAURA [facility] [address] [place], [place] 4524[address] Hub Cutter Dietitian, Registered 07/25/19 Roshni Nascimento, RN Personal Advocate & Liaison (PAL) Family Medicine 08/18/20 Kiet Swain MD [address] [facility] [address] [place], [place] 13[address] Referring Physician Psychiatry 09/19/20 Winsome Pike APRN [employer] G[employer] [address] [place] [address] 854204 Nurse Practitioner Psychiatry 09/19/20 Tori Hines [facility] 2450 [place], [place] 876[address] Universal Branch Consultant Universal Branch Consultant - Clinical 09/19/20 Miranda Queen [facility] [address] [place] [address] Pharmacist Pharmacist 11/12/20 Winsome Pike APRN W[employer] GAS [address] [place] [address] [phone] Assigned Behavioral Health Provider 01/04/21 07/02/22 Marisel Armando MD [address] [place] [address] 019955 Gastroenterology 02/05/21 Marisel Armando MD [address] [place] [address] 779385 Assigned Gastroenterology Provider 03/08/21 12/24/22 Inderjit Ugalde MD [address] [facility] 300 [place], [place] 85[address]57 Assigned Surgical Provider 02/15/21 08/20/22 Wesley Barrett MD [address] [place] [address] 100155 Assigned Neuroscience Provider 05/10/21 Charles Jaramillo PA-C [address] 014355 Assigned Musculoskeletal Provider 04/26/21 10/15/22 [facility] [address] [place] [address] Assigned MTM Pharmacist 12/05/21 03/26/22 [place] [address] [place] [address] Assigned PCP 01/23/22 05/14/22 [facility] [address] [place] [address] Assigned MTM Pharmacist 04/07/22 05/14/22 [place] [address] [place] [address] Assigned PCP 05/15/22 Katiana Read MD [address] [place] [address] 129160 Assigned Endocrinology Provider 06/19/22 Meme Singleton, PhD [address] [place] 557057 Assigned Behavioral Health Provider 07/03/22 12/31/22 Deena Garza, SEWER AND CUTTER FINGER BUFF MATERIAL [employer] [place] [address] [place] [address] Assigned Pain Medication Provider 07/19/22 10/29/22 Mary Del Cid, MERCHANDISER SE[place]ONAL [address] [place] [address] Nurse Practitioner Nurse Practitioner 10/18/22 Elham Stack, [facility] 30[address] [place] [address] Pharmacist Pharmacist 10/19/22 Emerita Potter, [facility] Clinic Pot Lining Supervisor Universal Branch Consultant - Clinical 10/29/22 11/02/22 [place] [address] [place] [address] Assigned Pain Medication Provider 10/30/22 12/03/22 Michelle Guzman DPM, Podiatry/Foot and Ankle Surgery [address] [place] [address] Assigned Musculoskeletal Provider 10/16/22 04/08/23 [place] [address] [place] [address] Assigned Pain Medication Provider 12/04/22 04/01/23 [place] [address] [place] [address] Nurse Practitioner Nurse Practitioner 01/17/23 01/17/23 Aubrey Jones MD [address] [place] [address] Cardiovascular Disease 03/28/23 Blanquita Morales Hub Cutter Diabetes Education 04/25/23 Aubrey Jones MD [address] [place] [address] Assigned Heart and Vascular Provider 05/07/23 documented as of this encounter
--- OUTSIDE RECORDS SUMMARY | 2023-08-03 12:48 | XMS_ITS | Encounter Summary ---
Author Name Unknown Organization [facility] Address [address] [place] [address]. [place] [address] Care Team Providers Care Coin Rolling Machine Operator Name Role Phone Len Adhikari MD Primary Care Provider + [phone] Jovany Gonzalez MD Unavailable CrissyStaci jeong NP Unavailable [phone] Unavailable [phone] Roshni Nascimento RN Unavailable Unavailable Kiet Swain MD Unavailable [phone] Winsome Pike APRN GLYCERIN OPERATOR Unavailable +[phone] Tori HinesSW Unavailable Miranda Queen [facility] Unavailable Unavailable Winsome Pike APRN GLYCERIN OPERATOR Unavailable +[phone] Marisel Armando MD Unavailable Marisel Armando MD Unavailable Inderjit Ugalde MD Unavailable +[phone] Wesley Barrett MD Unavailable +[phone] Charles Jaramillo PA-C Unavailable +[phone] Leeann Rinaldi MD Unavailable Miranda Queen [facility] Unavailable Unavailable Dyan Fuentes MD Primary Care Provider +[phone] Dyan Fuentes MD Unavailable +[phone] Katiana Read MD Unavailable +[phone] Meme Singleton PhD Unavailable + Greg Deena L J2EE ENGINEER GLYCERIN OPERATOR Unavailable +[phone] Mary Del Cid NP Unavailable +[phone] SreekanthElham Anthony [facility] Unavailable [phone] Abbey Emerita Alisha RACETRACK STEWARD Unavailable [phone] Mary Del Cid NP Unavailable +[phone] Michelle Guzman DPM, Podiatry /Foot and Ankle Surgery Unavailable Dyan Fuentes MD Unavailable + [phone] Mary Del Cid NP Unavailable +[phone] Aubrey Jones MD Unavailable +[phone] Blanquita Morales Unavailable Unavailable Aubrey Jones MD Unavailable +[phone] Encounter Details Date Type Department Care Team (Late st Contact Info) Description 04/14/2022 [facility] Medical Advice [address] [address] Roshni Nascimento, RN Social History [...] week 10/16/2021 How often do you attend [facility] or scientologist services? 1 to 4 times [...] Answer Date Recorded PHQ-2 Score 2 02/02/2021 [facility] of Occupat ional Health [...] st Contact Info) Description 08/18/2023 3:00 PM HR ASSISTANT Office Visit [facility] [place] [facility] [address] [place] [address] Katiana Read MD [address] [facility] 200 [place] [address] documented as of this encounter [...] documented as of this encounter Care Teams Coin Rolling Machine Operator Relationship Specialty Start Date End Date Len Adhikari MD PCP - General Family Practice 11/08/16 05/09/22 [place] [address] [place], [place] [id number] PCP - General Family Medicine 05/18/22 Jovany Gonzalez MD [facility] [address] [facility] [address] [place], [place] 5[address] Orthopedics 02/15/17 Staci Woodward, BIOMASS TECHNICIAN [place] [address] [place], [place] [address] Nurse Practitioner Nurse Practitioner Psych/Mental Health 05/10/17 Reanna Smith, [facility] [address] [place], [place] 7025[address] Slicing Machine Operator Dietitian, Registered 07/25/19 Roshni Nascimento, RN Personal Advocate & Liaison (PAL) Family Medicine 08/18/20 Kiet Swain MD [address] [facility] [address] [place], [place] 8[address] Referring Physician Psychiatry 09/19/20 Winsome Pike APRN GLYCERIN OPERATOR [address] [place] [address] [phone] Nurse Practitioner Psychiatry 09/19/20 Tori Hines [facility] [address] [place], [place] 277[address] Medical Affairs Director Medical Affairs Director - Clinical 09/19/20 Miranda Queen [facility] [address] [place] [address] Pharmacist Pharmacist 11/12/20 Winsome Pike APRN GLYCERIN OPERATOR [address] [place] [address] 988694 Assigned Behavioral Health Provider 01/04/21 07/02/22 Marisel Armando MD [address] [place] [address] 720745 Gastroenterology 02/05/21 Marisel Armando MD [address] [place] [address] 998525 Assigned Gastroenterology Provider 03/08/21 12/24/22 Inderjit Ugalde MD [address] [facility] 300 [place], [place] 7769[address] Assigned Surgical Provider 02/15/21 08/20/22 Wesley Barrett MD [address] [place] [address] 96 [place], [place] [address] Assigned Neuroscience Provider 05/10/21 Charles Jaramillo PA-C [address] 547605 Assigned Musculoskeletal Provider 04/26/21 10/15/22 [place] [address] [place] [address] Assigned PCP 01/23/22 05/14/22 Miranda Queen [facility] [address] [place] [address] Assigned MTM Pharmacist 04/07/22 05/14/22 [place] [address] [place] [address] Assigned PCP 05/15/22 Katiana Read MD [address] 041240 Assigned Endocrinology Provider 06/19/22 [place] [address] [place], [place] 86[address] Assigned Behavioral Health Provider 07/03/22 12/31/22 Deena Garza, J2EE ENGINEER GLYCERIN OPERATOR [address] [place] [address] Assigned Pain Medication Provider 07/19/22 10/29/22 Mary Del Cid, RAFAEL [address] [place] [address] Nurse Practitioner Nurse Practitioner 10/18/22 Elham Stack, [facility] 30[address] [place] [address] Pharmacist Pharmacist 10/19/22 Emerita Potter, [facility] Clinic Color Sprayer Medical Affairs Director - Clinical 10/29/22 11/02/22 [place] [address] [place] [address] Assigned Pain Medication Provider 10/30/22 12/03/22 Michelle Guzman, DPM, Podiatry/Foot and Ankle Surgery [address] [place] [address] Assigned Musculoskeletal Provider 10/16/22 04/08/23 [place] [address] [place] [address] Assigned Pain Medication Provider 12/04/22 04/01/23 [place] [address] [place] [address] Nurse Practitioner Nurse Practitioner 01/17/23 01/17/23 Aubrey Jones MD [address] [place] [address] Cardiovascular Disease 03/28/23 Blanquita Morales Slicing Machine Operator Diabetes Education 04/25/23 Aubrey Jones MD [address] [place] [address] Assigned Heart and Vascular Provider 05/07/23 documented as of this encounter
--- OUTSIDE RECORDS SUMMARY | 2023-08-03 12:48 | XMS_ITS | Encounter Summary ---
Author Name Unknown Organization [facility] Address [address] [place] [address]. [place] [address] Care Team Providers Care Engineering Aide Name Role Phone Jovany Gonzalez MD Unavailable [phone] CrissyStaci jeong NP Unavailable [phone] Unavailable Roshni Nascimento RN Unavailable Unavailable Kiet Swain MD Unavailable [phone] Winsome Pike APRN SCOW DERRICK OPERATOR Unavailable +[phone] Tori Hines [facility] Unavailable Miranda Queen [facility] Unavailable Unavailable Winsome Pike APRN SCOW DERRICK OPERATOR Unavailable [phone] Marisel Armando MD Unavailable Marisel Armando MD Unavailable Inderjit Ugalde MD Unavailable [phone] Wesley Barrett MD Unavailable [phone] Charles Jaramillo PA-C Unavailable +[phone] Dyan Fuentes MD Primary Care Provider [phone] Dyan Fuentes MD Unavailable [phone] Katiana Read MD Unavailable [phone] Meme Singleton PhD Unavailable +[phone] GregDeena CAMPGROUND HAND SCOW DERRICK OPERATOR Unavailable [phone] Mary Del Cid ORNAMENT STAPLER Unavailable + [phone] Elham Stack [facility] Unavailable [phone] Emerita Potter [facility] Unavailable [phone] Mary Del Cid NP Unavailable + [phone] Michelle Guzman DPM, Podiatry /Foot and Ankle Surgery Unavailable Dyan Fuentes MD Unavailable [phone] Mary Del Cid NP Unavailable + [phone] Aubrey Jones MD Unavailable [phone] Blanquita Morales Unavailable Unavailable Aubrey Jones MD Unavailable + [phone] Reason for Visit * Reason Onset Date Comments Call Back 06/07/2022 Encounter Details Date Type Department Care Team (Late st Contact Info) Description 06/07/2022 Telephone [facility] [address] [place] [address] Pain Management Program, [facility] Call Back Social History Tobacco Use [...] Answer Date Recorded PHQ-2 Score 2 05/07/2022 [facility] - Occupational Stress Questionnaire Answer [...] to have Coronavirus/COVID-19? Yes 05/17/2022 9:54 AM MAINTENANCE MANAGER documented as of this encounter Miscellaneous Notes * Telephone Encounter - Alicia Huffman - 06/07/2022 12:46 PM CST LVM for patient to schedule 60 minute in clinic transfer of care appointment with Mary Del Cid.When patient returns the call please transfer patient to [phone] to schedule. Alicia Huffman Time Study Statistician [facility] TENANCE MANAGER documented in this encounter Plan of Treatment Upcoming Encounters Date Type Department Care Team (Late st Contact Info) Description 08/18/2023 3:00 PM MAINTENANCE MANAGER Office Visit [facility] [address] [place] [address] Katiana Read MD [address] [place], [place] [address] documented as of this encounter Visit Diagnoses [...] documented as of this encounter Care Teams Engineering Aide Relationship Specialty [place] [address] [place] [address] PCP - General Family Medicine 05/18/22 Jovany Gonzalez MD [facility] [address] [facility] [address] [place] [address] Orthopedics 02/15/17 Staci Woodward ORNAMENT [facility]AP[facility] [address] [place] [address] Nurse Practitioner Nurse Practitioner Psych/Mental Health 05/10/17 Reanna Smith, [facility] [address] [place] [address] Commercial Counsel Dietitian, Registered 07/25/19 Roshni Nascimento, RN Personal Advocate & Liaison (PAL) Family Medicine 08/18/20 Kiet Swain MD 2450 [facility] [address] [place] [address] Referring Physician Psychiatry 3/12/21 Winsome Pike APRN SCOW DERRICK OPERATOR [address] 675804 Nurse Practitioner Psychiatry 09/19/20 Tori Hines, [facility] [address] [place], [place] [phone] Soa Integration Developer Soa Integration Developer - Clinical 09/19/20 Miranda Queen, [facility] [address] [place] [address] Pharmacist Pharmacist 11/12/20 Winsome Pike APRN SCOW DERRICK OPERATOR [facility] [address] 721144 Assigned Behavioral Health Provider 01/04/21 07/02/22 Marisel Armando MD [address] [place] [address] 651055 Gastroenterology 02/05/21 Marisel Armando MD [address] [place] [address] 201635 Assigned Gastroenterology Provider 03/08/21 12/24/22 Inderjit Ugalde MD [address] [facility] 300 [place], [place] [address]47 Assigned Surgical Provider 02/15/21 08/20/22 Wesley Barrett MD [address] [place] [address] 657745 Assigned Neuroscience Provider 05/10/21 Charles Jaramillo PA-C [address] [address] Assigned Musculoskeletal Provider 04/26/21 10/15/22 [place] [address] [place] [address] Assigned PCP 05/15/22 Katiana Read MD [address] [facility] 200 [place] [address] Assigned Endocrinology Provider 06/19/22 [place] [address] [place] [address] Assigned Behavioral Health Provider 07/03/22 12/31/22 Deena Garza APRN SCOW DERRICK OPERATOR [address] [place] [address] Assigned Pain Medication Provider 07/19/22 10/29/22 Mary Del Cid, RAFAEL [address] [place] [address] Nurse Practitioner Nurse Practitioner 10/18/22 Elham Stack, [facility] 30[address] [place] [address] Pharmacist Pharmacist 10/19/22 Emerita Potter, [facility] Clinic Questioned Documents Examiner Soa Integration Developer - Clinical 10/29/22 11/02/22 [place] [address] [address] [place] [address] Assigned Pain Medication Provider 10/30/22 12/03/22 Michelle Guzman DPM, Podiatry/Foot and Ankle Surgery [address] [place] [address] Assigned Musculoskeletal Provider 10/16/22 04/08/23 [place] [address] [place] [address] Assigned Pain Medication Provider 12/04/22 04/01/23 [place] [address] [place] [address] Nurse Practitioner Nurse Practitioner 01/17/23 01/17/23 Aubrey Jones MD [address] [place] [address] Cardiovascular Disease 03/28/23 Blanquita Morales Commercial Counsel Diabetes Education 04/25/23 Aubrey Jones MD [address] [place] [address] Assigned Heart and Vascular Provider 05/07/23 documented as of this encounter
--- OUTSIDE RECORDS SUMMARY | 2023-08-03 12:48 | XMS_ITS | Encounter Summary ---
Author Name Unknown Organization [facility] Address [address] [place] [address]. [place] [address] Care Team Providers Care Change Management Director Name Role Phone Jovany Gonzalez MD Unavailable CrissyStaci jeong NP Unavailable [phone] Unavailable Roshni Nascimento RN Unavailable Unavailable Kiet Swain MD Unavailable [phone] Winsome Pike APRN PROCESS PROJECT ENGINEER Unavailable +[phone] Tori Hines [facility] Unavailable Miranda Queen [facility] Unavailable Unavailable Winsome Pike APRN PROCESS PROJECT ENGINEER Unavailable +[phone] Marisel Armando MD Unavailable Marisel Armando MD Unavailable Inderjit Ugalde MD Unavailable [phone] Wesley Barrett MD Unavailable [phone] Charles Jaramillo PA-C Unavailable +[phone] Dyan Fuentes MD Primary Care Provider [phone] Dyan Fuentes MD Unavailable [phone] Katiana Read MD Unavailable [phone] Meme Singleton PhD Unavailable +[phone] GregDeena HOUSING DIRECTOR PROCESS PROJECT ENGINEER Unavailable + Mary Del Cid ELIGIBILITY EXAMINER Unavailable +[phone] Elham Stack [facility] Unavailable [phone] Emerita Potter [facility] Unavailable [phone] Mary Del Cid ELIGIBILITY EXAMINER Unavailable +[phone] Michelle Guzman DPM, Podiatry /Foot and Ankle Surgery Unavailable Dyan Fuentes MD Unavailable [phone] Mary Del Cid NP Unavailable +[phone] Aubrey Jones MD Unavailable [phone] Blanquita Morales Unavailable Unavailable Aubrey Jones MD Unavailable [phone] Encounter Details Date Type Department Care Team (Late st Contact Info) Description 06/14/2022 [facility] Medical Advice [address] [address] Torri Benites V, RN Social [...] often do you attend chur ch or judaism services? 1 to 4 times [...] 0 06/14/2022 [facility] of Occupat ional [facility] - Occupational Stress Questionnaire Answer Date [...] Coronavirus/COVID-19? No / Unsure 06/14/2022 2:05 PM MANUFACTURERS AGENT documented as of this encounter Miscellaneous Notes * Telephone Encounter - Torri Benites RN - 06/15/2022 10:40 AM MANUFACTURERS AGENT Pt is scheduled for today at 1230 for VV FACTURERS AGENT * Telephone Encounter - Torri Benites RN - 06/15/2022 8:28 AM MANUFACTURERS AGENT LM at home and mobile to c/b to discuss below. Printed Piecet message sent as well. FACTURERS AGENT * Telephone Encounter - Torri Benites RN - 06/14/2022 3:43 PM MANUFACTURERS AGENT LM for pt to c/b to offer 06/15/22 at 1230 VV. Pt preferred phone call. FACTURERS AGENT * Telephone Encounter - Katiana Read MD - 06/14/2022 3:29 PM MANUFACTURERS AGENT 06/15/2022 at 1230- video. FACTURERS AGENT * Telephone Encounter - Torri Benites RN - 06/14/2022 1:34 PM MANUFACTURERS AGENT Spoke to patient, patients states she has an appointment at 230 and does not think she will be homein time for a 430 video visit. Please advise if pt should be added on somewhere else. FACTURERS AGENT * Telephone Encounter - Katiana Read MD - 06/14/2022 12:54 PM MANUFACTURERS AGENT Note: Please add on pt at 430 for video visit. Last visit 2019? TSH Date Value Ref Range Status 06/12/2022 290.00 (H) 0.30 - 4.20 uIU/mL Final 06/08/2021 35.36 (H) 0.40 - 4.00 mU/L Final 08/19/2020 0.70 0.40 - 4.00 mU/L Final FACTURERS AGENT * Telephone Encounter - Nhi Wong RN - 06/14/2022 12:44 PM MANUFACTURERS AGENT Last visit 2019? Is she taking thyroid medication? Can you please check with pt? ?? FACTURERS AGENT documented in this encounter Plan of Treatment Upcoming Encounters Date Type Department Care Team (Late st Contact Info) Description 08/18/2023 3:00 PM MANUFACTURERS AGENT Office Visit [facility] [address] [place] [address] Katiana Read MD [address] [place], [place] [address] documented as of this encounter Visit Diagnoses [...] Depression Total Score: 13 022 3:28 PM MANUFACTURERS AGENT documented as of this encounter Care Teams Change Management Director Relationship Specialty [place] [address] [place] [address] PCP - General Family Medicine 05/18/22 Jovany Gonzalez MD [facility] [address] [facility] [address] [place], [place] [address] Orthopedics 02/15/17 Staci Woodward NP [facility] [address] [place], [place] [address] Nurse Practitioner Nurse Practitioner Psych/Mental Health 05/10/17 Reanna Smith, [facility] [address] [place] [address] Ply Splicer Dietitian, Registered 07/25/19 Roshni Nascimento, RN Personal Advocate & Liaison (PAL) Family Medicine 08/18/20 Kiet Swain MD 2450 [facility] [address] [place], [place] [address] Referring Physician Psychiatry 09/19/20 Winsome Pike APRN PROCESS PROJECT ENGINEER [address] [place] [address] 100714 Nurse Practitioner Psychiatry 09/19/20 Tori Hines, [facility] [address] [place], [place] [phone] Simulation Developer Simulation Developer - Clinical 09/19/20 Miranda Queen [facility] [address] [place] [address] Pharmacist Pharmacist 11/12/20 Winsome Pike APRN PROCESS PROJECT ENGINEER [address] [place] [address] 097014 Assigned Behavioral Health Provider 01/04/21 07/02/22 Marisel Armando MD [address] [place] [address] 967025 Gastroenterology 02/05/21 Marisel Armando MD [address] [place] [address] 441795 Assigned Gastroenterology Provider 03/08/21 12/24/22 Inderjit Ugalde MD [address] [facility] 300 [place] [address] Assigned Surgical Provider 02/15/21 08/20/22 Wesley Barrett MD [address] [place] [address] 96 [place] [address] Assigned Neuroscience Provider 05/10/21 Charles Jaramillo PA-C [address]45 [facility] [address] [place] [address] Assigned Musculoskeletal Provider 04/26/21 10/15/22 [place] [address] [address] Assigned PCP 05/15/22 Katiana Read MD [address] [facility] 200 [place] [address] Assigned Endocrinology Provider 06/19/22 [place] PhD [address] [place] [address] Assigned Behavioral Health Provider 07/03/22 12/31/22 Deena Garza APRN PROCESS PROJECT ENGINEER [address] [place] [address] Assigned Pain Medication Provider 07/19/22 10/29/22 Mary Del Cid, RAFAEL [address] [place] [address] Nurse Practitioner Nurse Practitioner 10/18/22 Elham Stack, [facility] [address] [place] [address] Pharmacist Pharmacist 10/19/22 Emerita Potter, [facility] Clinic Marketing Operations Assistant Simulation Developer - Clinical 10/29/22 11/02/22 Mary Del Cid, RAFAEL [address] [place] [address] Assigned Pain Medication Provider 10/30/22 12/03/22 Michelle Guzman, DPM, Podiatry/Foot and Ankle Surgery [address] [place] [address] Assigned Musculoskeletal Provider 10/16/22 04/08/23 [place] [address] [place] [address] Assigned Pain Medication Provider 12/04/22 04/01/23 [place] [address] [place] [address] Nurse Practitioner Nurse Practitioner 01/17/23 01/17/23 Aubrey Jones MD [address] [place] [address] Cardiovascular Disease 03/28/23 Blanquita Morales Ply Splicer Diabetes Education 04/25/23 Aubrey Jones MD [address] [place] [address] Assigned Heart and Vascular Provider 05/07/23 documented as of this encounter
--- OUTSIDE RECORDS SUMMARY | 2023-08-03 12:48 | XMS_ITS | Encounter Summary ---
Author Name Unknown Organization [facility] Address [address] [place] [address]. [place] [address] Care Team Providers Care Soldering Machine Feeder Name Role Phone Len Adhikari MD Primary Care Provider + [phone] Jovany Gonzalez MD Unavailable CrissyStaci jeong NP Unavailable +[phone] Unavailable +[phone] Roshni Nascimento RN Unavailable Unavailable Kiet Swain MD Unavailable [phone] Winsome Pike APRN MASTER SHEET CLERK Unavailable +[phone] Tori HinesSW Unavailable Miranda Queen [facility] Unavailable Unavailable Winsome Pike APRN MASTER SHEET CLERK Unavailable +[phone] Marisel Armando MD Unavailable Marisel Armando MD Unavailable Inderjit Ugalde MD Unavailable +[phone] Wesley Barrett MD Unavailable +[phone] Charles Jaramillo PA-C Unavailable +[phone] Leeann Rinaldi MD Unavailable Miranda Queen [facility] Unavailable Unavailable Dyan Fuentes MD Primary Care Provider +[phone] Dyan Fuentes MD Unavailable +[phone] Katiana Read MD Unavailable +[phone] Meme Singleton PhD Unavailable + Greg Deena L MIXING PLANT OPERATOR MASTER SHEET CLERK Unavailable +[phone] Mary Del Cid NP Unavailable +5400 Sreekanth Elham T [facility] Unavailable +[phone] Abbey Emerita Brito INSIDE SALES Unavailable +[phone] Mary Del Cid NP Unavailable +[phone] Michelle Guzman DPM, Podiatry /Foot and Ankle Surgery Unavailable Dyan Fuentes MD Unavailable + [phone] Mary Del Cid NP Unavailable +5400 Aubrey Jones MD Unavailable +[phone] Blanquita Morales Unavailable Unavailable Aubrey Jones MD Unavailable +[phone] Encounter Details Date Type Department Care Team (Late st Contact Info) Description 03/30/2022 [facility] [place] [facility] [address] [place] [phone] Caryl Wheeler, MA Social History Tobacco Use [...] week 10/16/2021 How often do you attend [facility] or m[facility]on services? 1 to 4 times [...] Answer Date Recorded PHQ-2 Score 2 02/02/2021 [facility] of Occupat ional [facility] - Occupational Stress Questionnaire Answer Date [...] st Contact Info) Description 08/18/2023 3:00 PM CLAIM CLINICIAN Office Visit [facility] [address] [facility] [address] [place] [address] Katiana Read MD [address] [address] [place] [address] documented as of this encounter [...] documented as of this encounter Care Teams Soldering Machine Feeder Relationship Specialty Start Date End Date Len Adhikari MD PCP - General Family Practice 11/08/16 05/09/22 [place] [address] [place] [address] PCP - General Family Medicine 05/18/22 Jovany Gonzalez MD [facility] [address] [facility] [address] [place], [place] [address] Orthopedics 02/15/17 Staci Woodward, WAFER POLISHER [place] [address] [place], [place] 78[address] Nurse Practitioner Nurse Practitioner Psych/Mental Health 05/10/17 Reanna Smith, RD [facility] [address] [place], [place] 8[address] Core Drill Operator Dietitian, Registered 07/25/19 Roshni Nascimento, RN Personal Advocate & Liaison (PAL) Family Medicine 08/18/20 Kiet Swain MD [address] [facility] [address] [place] [address] Referring Physician Psychiatry 09/19/20 Winsome Pike APRN MASTER SHEET CLERK [address] [place] [address] 364574 Nurse Practitioner Psychiatry 09/19/20 Tori Hines [facility] [address] [place], [place] 507874 Mainframe Developer Mainframe Developer - Clinical 09/19/20 Miranda Queen [facility] [address] [place] [address] Pharmacist Pharmacist 11/12/20 Winsome Pike APRN MASTER SHEET CLERK [address] [place] [address] 275384 Assigned Behavioral Health Provider 01/04/21 07/02/22 Marisel Armando MD [address] [place] [address] 213255 Gastroenterology 02/05/21 Marisel Armando MD [address] [place] [address] 035705 Assigned Gastroenterology Provider 03/08/21 12/24/22 Inderjit Ugalde MD [address] [facility] [address] [place], [place] 842807 Assigned Surgical Provider 02/15/21 08/20/22 Wesley Barrett MD [address] [place] [address] 96 [place], [place] 006445 Assigned Neuroscience Provider 05/10/21 Charles Jaramillo PA-C [address] 441035 Assigned Musculoskeletal Provider 04/26/21 10/15/22 [place] [address] [place] [address] Assigned PCP 01/23/22 05/14/22 Miranda Queen [facility] [address] [place] [address] Assigned MTM Pharmacist 04/07/22 05/14/22 [place] [address] [place] [address] Assigned PCP 05/15/22 Katiana Read MD [address] [place] [address] 116930 Assigned Endocrinology Provider 06/19/22 [place] [address] [place] [address] Assigned Behavioral Health Provider 07/03/22 12/31/22 Deena Garza, VIDHI MASTER SHEET CLERK [address] [place] [address] Assigned Pain Medication Provider 07/19/22 10/29/22 Mary Del Cid, RAFAEL [address] [place] [address] Nurse Practitioner Nurse Practitioner 10/18/22 Elham Stack, [facility] [address] [place] [address] Pharmacist Pharmacist 10/19/22 Emerita Potter, [facility] Clinic Sales Warehouse Driver Mainframe Developer - Clinical 10/29/22 11/02/22 [place] [address] [place] [address] Assigned Pain Medication Provider 10/30/22 12/03/22 Michelle Guzman DPM, Podiatry/Foot and Ankle Surgery [address] [place] [address] Assigned Musculoskeletal Provider 10/16/22 04/08/23 [place] [address] [address] Assigned Pain Medication Provider 12/04/22 04/01/23 [place] [address] [place] [address] Nurse Practitioner Nurse Practitioner 01/17/23 01/17/23 Aubrey Jones MD [address] [place] [address] Cardiovascular Disease 03/28/23 Blanquita Morales Core Drill Operator Diabetes Education 04/25/23 Aubrey Jones MD [address] [place] [address] Assigned Heart and Vascular Provider 05/07/23 documented as of this encounter
--- OUTSIDE RECORDS SUMMARY | 2023-08-03 12:48 | XMS_ITS | Encounter Summary ---
Author Name Unknown Organization [facility] Address [address] [place] [address]. [place] [address] Care Team Providers Care Rag Cutting Machine Tender Name Role Phone Len Adhikari MD Primary Care Provider + [phone] Jovany Gonzalez MD Unavailable [facility] NP Unavailable [phone] Unavailable [phone] Roshni Nascimento RN Unavailable Unavailable Kiet Swain MD Unavailable [phone] Winsome Pike APRN AIX ADMINISTRATOR Unavailable +[phone] Tori HinesSW Unavailable Miranda Queen [facility] Unavailable Unavailable Winsome Pike APRN AIX ADMINISTRATOR Unavailable [phone] Marisel Armando MD Unavailable Marisel Armando MD Unavailable Inderjit Ugalde MD Unavailable +[phone] Wesley Barrett MD Unavailable +[phone] Charles Jaramillo PA-C Unavailable +[phone] Miranda Queen [facility] Unavailable Unavailable Leeann Rinaldi MD Unavailable Miranda Queen [facility] Unavailable Unavailable Dyan Fuentes MD Primary Care Provider +[phone] Dyan Fuentes MD Unavailable + [phone] Katiana Read MD Unavailable +[phone] Meme Singleton PhD Unavailable + Greg Deena Lashell HULL BUILDER AIX ADMINISTRATOR Unavailable + Mary Del Cid NP Unavailable +5400 StackElham Anthony [facility] Unavailable +[phone] AbbeyEmerita Alisha [facility] Unavailable +[phone] Mary Del Cid NP Unavailable +5400 Michelle Guzman DPM, Podiatry /Foot and Ankle Surgery Unavailable Dyan Fuentes MD Unavailable + [phone] Mary Del Cid NP Unavailable +5400 Aubrey Jones MD Unavailable [phone] Blanquita Morales Unavailable Unavailable Aubrey Jones MD Unavailable + [phone] Encounter Details Date Type Department Care Team (Late st Contact Info) Description 03/04/2022 [facility] [place] Adv[place] [address] [address] Caryl Wheeler MA Social History [...] [facility] - Occupational Stress Questionnaire Answer [...] st Contact Info) Description 08/18/2023 3:00 PM LANDSCAPE ARTIST Office Visit [facility] [address] [facility] [address] [place] [address] Katiana Read MD [address] [facility] 200 [place] [address] documented as of this encounter Visit Diagnoses [...] documented as of this encounter Care Teams Rag Cutting Machine Tender Relationship Specialty Start Date End Date Len Adhikari MD PCP - General Family Practice 11/08/16 05/09/22 [place] [address] [place] [address] PCP - General Family Medicine 05/18/22 Jovany Gonzalez MD [facility] [address] [facility] [address] [place] [address] Orthopedics 02/15/17 Staci Woodward MORTGAGE PROTECTION SPECIALIST [facility] [address] [place], [place] 555[address] Nurse Practitioner Nurse Practitioner Psych/Mental Health 05/10/[address] [facility] [address] [place], [place] 434[address] Plug Making Operator Dietitian, Registered 07/25/19 Roshni Nascimento, RN Personal Advocate & Liaison (PAL) Family Medicine 08/18/20 Kiet Swain MD [address] [facility] [address] [place] [address] Referring Physician Psychiatry 09/19/20 Winsome Pike APRN AIX ADMINISTRATOR [address] [place] [address] Nurse Practitioner Psychiatry 09/19/20 Tori Hines, [facility] [address] [place], [place] 351584 Loss Prevention Analyst Loss Prevention Analyst - Clinical 09/19/20 Miranda Queen, [facility] [address] [place] [address] Pharmacist Pharmacist 11/12/20 Winsome Pike APRN AIX ADMINISTRATOR [address] [place] [address] [phone] Assigned Behavioral Health Provider 01/04/21 07/02/22 Marisel Armando MD [address] [place] [address] 033905 Gastroenterology 02/05/21 Marisel Armando MD [address] [place] [address] 252135 Assigned Gastroenterology Provider 03/08/21 12/24/22 Inderjit Ugalde MD [address] [facility] 300 [place], [place] 821477 Assigned Surgical Provider 02/15/21 08/20/22 Wesley Barrett MD [address] [facility] 96 [place], [place] 7[address]85 Assigned Neuroscience Provider 05/10/21 Charles Jaramillo PA-C [address] 496625 Assigned Musculoskeletal Provider 04/26/21 10/15/22 [facility] [address] [place] [address] Assigned MTM Pharmacist 12/05/21 03/26/22 [place] [address] [place] [address] Assigned PCP 01/23/22 05/14/22 [facility] [address] [place] [address] Assigned MTM Pharmacist 04/07/22 05/14/22 [place] [address] [place] [address] Assigned PCP 05/15/22 Katiana Read MD [address] [address] Assigned Endocrinology Provider 06/19/22 Meme [place] PhD [address] [place] [address] Assigned Behavioral Health Provider 07/03/22 12/31/22 Deena Garza, HULL BUILDER AIX ADMINISTRATOR [address] [place] [address] Assigned Pain Medication Provider 07/19/22 10/29/22 Mary Del Cid, RAFAEL [address] [place] [address] Nurse Practitioner Nurse Practitioner 10/18/22 Elham Stack, [facility] [address] [place] [address] Pharmacist Pharmacist 10/19/22 Emerita Potter, [facility] Clinic Human Resources Benefits Assistant Loss Prevention Analyst - Clinical 10/29/22 11/02/22 [place] [address] [address] [place] [address] Assigned Pain Medication Provider 10/30/22 12/03/22 Michelle Guzman, DPM, Podiatry/Foot and Ankle Surgery [address] [place] [address] Assigned Musculoskeletal Provider 10/16/22 04/08/23 [place] [address] [place] [address] Assigned Pain Medication Provider 12/04/22 04/01/23 [place] [address] [place] [address] Nurse Practitioner Nurse Practitioner 01/17/23 01/17/23 Aubrey Jones MD [address] [place] [address] Cardiovascular Disease 03/28/23 Blanquita Morales Plug Making Operator Diabetes Education 04/25/23 Aubrey Jones MD [address] [place] [address] Assigned Heart and Vascular Provider 05/07/23 documented as of this encounter
--- OUTSIDE RECORDS SUMMARY | 2023-08-03 12:48 | XMS_ITS | Encounter Summary ---
Author Name Unknown Organization [facility] Address [address] [place] [address]. [place] [address] Care Team Providers Care Master Pilot Name Role Phone Len Adhikari MD Primary Care Provider + [phone] Jovany Gonzalez MD Unavailable [facility] Clayton[facility]aci NP Unavailable [phone] Unavailable [phone] Roshni Nascimento RN Unavailable Unavailable Kiet Swain MD Unavailable Winsome Pike APRN AUGER SUPERVISOR Unavailable +[phone] Tori HinesSW Unavailable Miranda Queen [facility] Unavailable Unavailable Winsome Pike APRN AUGER SUPERVISOR Unavailable +[phone] Marisel Armando MD Unavailable Marisel Armando MD Unavailable Inderjit Ugalde MD Unavailable [phone] Wesley Barrett MD Unavailable +[phone] Charles Jaramillo PA-C Unavailable +[phone] Miranda Queen [facility] Unavailable Unavailable Leeann Rinaldi MD Unavailable Miranda Queen [facility] Unavailable Unavailable Dyan Fuentes MD Primary Care Provider [phone] Dyan Fuentes MD Unavailable + [phone] Katiana Read MD Unavailable +[phone] Meme Singleton PhD Unavailable + Greg Deena Lashell LABOR MEDIATOR AUGER SUPERVISOR Unavailable + Mary Del Cid NP Unavailable +5400 SreekanthElham Anthony [facility] Unavailable +[phone] Abbey Emerita Alisha [facility] Unavailable +[phone] Mary Del Cid NP Unavailable +5400 Michelle Guzman DPM, Podiatry /Foot and Ankle Surgery Unavailable Dyan Fuentes MD Unavailable + [phone] Mary Del Cid NP Unavailable +5400 Aubrey Jones MD Unavailable +[phone] Blanquita Morales Unavailable Unavailable Aubrey Jones MD Unavailable + [phone] Encounter Details Date Type Department Care Team (Late st Contact Info) Description 03/02/2022 [facility] Medical Advice [address] [address] Roshni Nascimento RN Social History [...] week 10/16/2021 How often do you attend [facility] or [facility] services? 1 to 4 [...] Answer Date Recorded PHQ-2 Score 2 02/02/2021 [facility] Occupat ional [facility] - Occupational Stress Questionnaire Answer Date Recorded [...] st Contact Info) Description 08/18/2023 3:00 PM TRACK HELPER Office Visit [facility] [address] [place] [address] [place] [address] Katiana Read MD [address] 200 [place] [address] documented as of this encounter Visit Diagnoses [...] documented as of this encounter Care Teams Master Pilot Relationship Specialty Start Date End Date Len Adhikari MD PCP - General Family Practice 11/08/16 05/09/22 [place] [address] [place] [address] PCP - General Family Medicine 05/18/22 Jovany Gonzalez MD [facility] [address] [facility] [address] [place], [place] 94[address] Orthopedics 02/15/17 Staci Woodward [facility]OR [facility] [address] [place], [place] 10[address] Nurse Practitioner Nurse Practitioner Psych/Mental Health 05/10/[address] [facility] [address] [place], [place] 0430[address] Concrete Journeyman Dietitian, Registered 07/25/19 Roshni Nascimento, RN Personal Advocate & Liaison (PAL) Family Medicine 08/18/20 Kiet Swain MD [address] [facility] [address] [place] [address] Referring Physician Psychiatry 09/19/20 Winsome Pike APRN AUGER SUPERVISOR [address] [place] [address] Nurse Practitioner Psychiatry 09/19/20 Tori Hines, [facility] [address] [place], [place] 8150[address] Auto Mechanic Apprentice Auto Mechanic Apprentice - Clinical 09/19/20 Miranda Queen, [facility] [address] [place] [address] Pharmacist Pharmacist 11/12/20 Winsome Pike APRN AUGER SUPERVISOR [address] [place] [address] [phone] Assigned Behavioral Health Provider 01/04/21 07/02/22 Marisel Armando MD [address] [place] [address] 083775 Gastroenterology 02/05/21 Marisel Armando MD [address] [place] [address] 212055 Assigned Gastroenterology Provider 03/08/21 12/24/22 Inderjit Ugalde MD [address] [facility] 300 [place], [place] [address] Assigned Surgical Provider 02/15/21 08/20/22 Wesley Barrett MD [address] [place] [address] 96 [place], [place] 145[address] Assigned Neuroscience Provider 05/10/21 Charles Jaramillo PA-C [address] 813085 Assigned Musculoskeletal Provider 04/26/21 10/15/22 [facility] [address] [place] [address] Assigned MTM Pharmacist 12/05/21 03/26/22 [place] [address] [place] [address] Assigned PCP 01/23/22 05/14/22 [facility] [address] [place] [address] Assigned MTM Pharmacist 04/07/22 05/14/22 [place] [address] [place] [address] Assigned PCP 05/15/22 Katiana Read MD [address] [address] Assigned Endocrinology Provider 06/19/22 [place] [address] [place] [address] Assigned Behavioral Health Provider 07/03/22 12/31/22 Deena Garza, LABOR MEDIATOR AUGER SUPERVISOR [address] [place] [address] Assigned Pain Medication Provider 07/19/22 10/29/22 Mary Del Cid, RAFAEL [address] [place] [address] Nurse Practitioner Nurse Practitioner 10/18/22 Elham Stack, [facility] [address] [place] [address] Pharmacist Pharmacist 10/19/22 Emerita Potter, [facility] Clinic Video Game Maker Auto Mechanic Apprentice - Clinical 10/29/22 11/02/22 Mary Del Cid, RAFAEL [address] [place] [address] Assigned Pain Medication Provider 10/30/22 12/03/22 Michelle Guzman, DPM, Podiatry/Foot and Ankle Surgery [address] [place] [address] Assigned Musculoskeletal Provider 10/16/22 04/08/23 [place] [address] [place] [address] Assigned Pain Medication Provider 12/04/22 04/01/23 [place] [address] [place] [address] Nurse Practitioner Nurse Practitioner 01/17/23 01/17/23 Aubrey Jones MD [address] [place] [address] Cardiovascular Disease 03/28/23 Blanquita Morales Concrete Journeyman Diabetes Education 04/25/23 Aubrey Jones MD [address] [place] [address] Assigned Heart and Vascular Provider 05/07/23 documented as of this encounter
--- OUTSIDE RECORDS SUMMARY | 2023-08-03 12:49 | XMS_ITS | Encounter Summary ---
Author Name Unknown Organization [facility] Address [address] [place] [address] Care Team Providers Care Portable Feed Mill Operator Name Role Phone Len Adhikari MD Primary Care Provider Jovany Gonzalez MD Unavailable CrissyStaci jeong NP Unavailable Len Adhikari MD Unavailable [phone] Unavailable Roshni Nascimento RN Unavailable Unavailable Kiet Swain MD Unavailable [phone] Winsome Pike APRN PRIMER INSERTING MACHINE ADJUSTER Unavailable +[phone] Tori HinesSW Unavailable Miranda Queen [facility] Unavailable Unavailable Winsome Pike APRN PRIMER INSERTING MACHINE ADJUSTER Unavailable [phone] Marisel Armando MD Unavailable Marisel Armando MD Unavailable Inderjit Ugalde MD Unavailable [phone] Wesley Barrett MD Unavailable Charles Jaramillo PA-C Unavailable +[phone] Miranda Queen [facility] Unavailable Unavailable Leeann Rinaldi MD Unavailable Miranda Queen [facility] Unavailable Unavailable Dyan Fuentes MD Primary Care Provider +[phone] Dyan Fuentes MD Unavailable +[phone] Katiana Read MD Unavailable +[phone] Meme Singleton PhD Unavailable +[phone] Deena Garza COMPLIANCE ENGINEER PRODUCTS PRIMER INSERTING MACHINE ADJUSTER Unavailable +[phone] Mary Del Cid CUSTOMER SERVICE AGENT Unavailable + [phone] StackElham [facility] Unavailable [phone] Emerita Potter [facility] Unavailable [phone] Mary Del Cid NP Unavailable + [phone] Michelle Guzman DPM, Podiatry /Foot and Ankle Surgery Unavailable Dyan Fuentes MD Unavailable + [phone] Mary Del Cid NP Unavailable + [phone] Aubrey Jones MD Unavailable + [phone] Blanquita Morales Unavailable Unavailable Aubrey Jones MD Unavailable + [phone] Encounter Details Date Type Department Care Team (Late st Contact Info) Description 12/10/2021 [facility] [address] [address] Torri Benites V, RN Social [...] Answer Date Recorded PHQ-2 Score 2 02/02/2021 [facility] - Occupational [...] st Contact Info) Description 08/18/2023 3:00 PM SPRING FORMER HAND Office Visit [facility] [address] [place] [address] Katiana Read MD [address] [place] [address] documented as of this encounter Visit Diagnoses [...] as of this encounter Care Teams Portable Feed Mill Operator Relationship Specialty Start Date End Date Len Adhikari MD PCP - General Family Practice 11/08/16 05/09/22 [place] [address] [place] [address] PCP - General Family Medicine 05/18/22 Jovany Gonzalez MD [facility] [address] [facility] [address] [place], [place] 327165 Orthopedics 02/15/17 Staci Woodward CUSTOMER SERVICE AGENT [place] [address] [place] [address] Nurse Practitioner Nurse Practitioner Psych/Mental Health 05/10/17 [place] [address] [facility] [place] [address] Assigned PCP 11/14/16 01/22/[address] [facility] [address] [place] [address] Hogshead Mat Inspector Dietitian, Registered 07/25/19 Roshni Nascimento, RN Personal Advocate & Liaison (PAL) Family Medicine 08/18/20 Kiet Swain MD [address] [place] [address] [place] [address] 783114 Referring Physician Psychiatry 09/19/20 Winsome Pike APRN PRIMER INSERTING MACHINE ADJUSTER [address] [place] [address] 648164 Nurse Practitioner Psychiatry 09/19/20 Tori Hines, [facility] [address] [place] [address] [phone] Sales Team Member Sales Team Member - Clinical 09/19/20 Miranda Queen [facility] [address] [place] [address] Pharmacist Pharmacist 11/12/20 Winsome Pike APRN PRIMER INSERTING MACHINE ADJUSTER [address] [place] [address] 907314 Assigned Behavioral Health Provider 01/04/21 07/02/22 Marisel Armando MD [address] [place] [address] Gastroenterology 02/05/21 Marisel Armando MD [address] [place] [address] Assigned Gastroenterology Provider 03/08/21 12/24/22 Inderjit Ugalde MD [address] [address] Assigned Surgical Provider 02/15/21 08/20/22 Wesley Barrett MD [address] [place] [address] 96 [place] [address] Assigned Neuroscience Provider 05/10/21 Charles Jaramillo PA-C [address] [facility] [address] [place] [address] Assigned Musculoskeletal Provider 04/26/21 10/15/22 Miranda Queen [facility] [address] [place] [address] Assigned MTM Pharmacist 12/05/21 03/26/22 [place] [address] [place] [address] Assigned PCP 01/23/22 05/14/22 Miranda Queen [facility] [address] [place] [address] Assigned MTM Pharmacist 04/07/22 05/14/22 [place] [address] [place] [address] Assigned PCP 05/15/22 Katiana Read MD [address] [place] [address] 200 [place], [place] 527400 Assigned Endocrinology Provider 06/19/22 Meme Singleton, PhD [address] [place] 7[address]307 Assigned Behavioral Health Provider 07/03/22 12/31/22 Deena Garza APRN PRIMER INSERTING MACHINE ADJUSTER [address] [place] [address] Assigned Pain Medication Provider 07/19/22 10/29/22 [place] [address] [address] [place] [address] Nurse Practitioner Nurse Practitioner 10/18/22 Elham Stack, [facility] [address] [place] [address] Pharmacist Pharmacist 10/19/22 Emerita Potter, [facility] Clinic Bowling Ball Assembler Sales Team Member - Clinical 10/29/22 11/02/22 [place] [address] [address] [place] [address] Assigned Pain Medication Provider 10/30/22 12/03/22 Michelle Guzman DPM, Podiatry/Foot and Ankle Surgery [address] [place] [address] Assigned Musculoskeletal Provider 10/16/22 04/08/23 [place] [address] [place] [address] Assigned Pain Medication Provider 12/04/22 04/01/23 [place] [address] [address] [place] [address] Nurse Practitioner Nurse Practitioner 01/17/23 01/17/23 Aubrey Jones MD [address] [place] [address] Cardiovascular Disease 03/28/23 Blanquita Morales Hogshead Mat Inspector Diabetes Education 04/25/23 Aubrey Jones MD [address] [place] [address] Assigned Heart and Vascular Provider 05/07/23 documented as of this encounter
--- OUTSIDE RECORDS SUMMARY | 2023-08-03 12:49 | XMS_ITS | Encounter Summary ---
Author Name Unknown Organization [place] Address [address] [place] [address] Care Team Providers Care Professional Bass Fisherman Name Role Phone Len Adhikari MD Primary Care Provider Jovany Gonzalez MD Unavailable CrissyStaci jeong NP Unavailable [phone] Len Adhikari MD Unavailable [phone] Unavailable [phone] Roshni Nascimento RN Unavailable Unavailable Kiet Swain MD Unavailable [phone] Winsome Pike APRN CHIEF OF PARTY Unavailable [phone] Tori HinesSW Unavailable Miranda Queen [facility] Unavailable Unavailable Winsome Pike APRN CHIEF OF PARTY Unavailable [phone] Marisel Armando MD Unavailable Marisel Armando MD Unavailable Inderjit Ugalde MD Unavailable [phone] Wesley Barrett MD Unavailable Charles Jaramillo PA-C Unavailable +[phone] Miranda Queen [facility] Unavailable Unavailable Leeann Rinaldi MD Unavailable Miranda Queen [facility] Unavailable Unavailable Dyan Fuentes MD Primary Care Provider +[phone] Dyan Fuentes MD Unavailable [phone] Katiana Read MD Unavailable +[phone] Meme Singleton PhD Unavailable +[phone] Deena Garza EXPORT AGENT CHIEF OF PARTY Unavailable +[phone] Mary Del Cid [employer] Unavailable +[phone] Elham Stack [facility] Unavailable [phone] [facility] Unavailable [phone] Mary Del Cid NP Unavailable + [phone] Michelle Guzman DPM, Podiatry /Foot and Ankle Surgery Unavailable Dyan Fuentes MD Unavailable [phone] Mary Del Cid NP Unavailable + [phone] Aubrey Jones MD Unavailable [phone] Blanquita Morales Unavailable Unavailable Aubrey Jones MD Unavailable + [phone] Encounter Details Date Type Department Care Team (Late st Contact Info) Description 12/29/2021 [facility] Neurology [address], [address] [address] Berna Lundberg, RN Social History [...] you attend chur ch or episcopalian services? 1 to 4 times per year [...] Score 2 02/02/2021 [facility] - Occupational Stress Questionnaire Answer Date [...] st Contact Info) Description 08/18/2023 3:00 PM CHARGE MASTER COORDINATOR Office Visit [facility] [address] [place] [address] Katiana Read MD [address] [place] [address] documented as of this encounter Visit Diagnoses [...] documented as of this encounter Care Teams Professional Bass Fisherman Relationship Specialty Start Date End Date Len Adhikari MD PCP - General Family Practice 11/08/16 05/09/22 [place] [address] [place] [address] PCP - General Family Medicine 05/18/22 Jovany Gonzalez MD [facility] [address] [facility] [address] [place], [place] 8330[address] Orthopedics 02/15/17 Staci Woodward [employer] [place] [address] [place], [place] 930[address] Nurse Practitioner Nurse Practitioner Psych/Mental Health 05/10/17 [place] [address] [facility] [place] [address] Assigned PCP 11/14/16 01/22/[address] [facility] [address] [place] [address] Print Press Operator Dietitian, Registered 07/25/19 Roshni Nascimento, RN Personal Advocate & Liaison (PAL) Family Medicine 08/18/20 Kiet Swain MD [address] [place] [address] [place] [address] 700884 Referring Physician Psychiatry 09/19/20 Winsome Pike APRN CHIEF OF PARTY [address] [place] [address] 055884 Nurse Practitioner Psychiatry 09/19/20 Tori Hines, [facility] [address] [place] [address] [phone] Finance Clerk Finance Clerk - Clinical 09/19/20 Miranda Queen [facility] [address] [place] [address] Pharmacist Pharmacist 11/12/20 Winsome Pike APRN CHIEF OF PARTY [address] [place] [address] 980294 Assigned Behavioral Health Provider 01/04/21 07/02/22 Marisel Armando MD [address] [place] [address] Gastroenterology 02/05/21 Marisel Armando MD [address] [place] [address] Assigned Gastroenterology Provider 03/08/21 12/24/22 Inderjit Ugalde MD [address] [address] Assigned Surgical Provider 02/15/21 08/20/22 Wesley Barrett MD [address] [place] [address] 96 [place] [address] Assigned Neuroscience Provider 05/10/21 Charles Jaramillo PA-C [address] [facility] [address] [place] [address] Assigned Musculoskeletal Provider 04/26/21 10/15/22 Miranda Queen [facility] [address] [place] [address] Assigned MTM Pharmacist 12/05/21 03/26/22 [place] [address] [place] [address] Assigned PCP 01/23/22 05/14/22 Miranda Queen [facility] [address] [place] [address] Assigned MTM Pharmacist 04/07/22 05/14/22 [place] [address] [place] [address] Assigned PCP 05/15/22 Katiana Read MD [address] [place] [address] 200 [place] [address] Assigned Endocrinology Provider 06/19/22 [place] PhD [address] [place] 0[address]197 Assigned Behavioral Health Provider 07/03/22 12/31/22 Deena Garza APRN CHIEF OF PARTY [address] [place] 950237 Assigned Pain Medication Provider 07/19/22 10/29/22 [place] [address] [address] [place] [address] Nurse Practitioner Nurse Practitioner 10/18/22 Elham Stack, [facility] [address] [facility] [place] [address] Pharmacist Pharmacist 10/19/22 Emerita Potter, [facility] Clinic Hybrid Corn Breeder Finance Clerk - Clinical 10/29/22 11/02/22 [place] [address] [address] [place] [address] Assigned Pain Medication Provider 10/30/22 12/03/22 Michelle Guzman DPM, Podiatry/Foot and Ankle Surgery [address] [place] [address] Assigned Musculoskeletal Provider 10/16/22 04/08/23 [place] [address] [place] [address] Assigned Pain Medication Provider 12/04/22 04/01/23 [place] [address] [address] [place] [address] Nurse Practitioner Nurse Practitioner 01/17/23 01/17/23 Aubrey Jones MD [address] [place] [address] Cardiovascular Disease 03/28/23 Blanquita Morales Print Press Operator Diabetes Education 04/25/23 Aubrey Jones MD [address] [place] [address] Assigned Heart and Vascular Provider 05/07/23 documented as of this encounter
--- OUTSIDE RECORDS SUMMARY | 2023-08-03 12:49 | XMS_ITS | Encounter Summary ---
Author Name Unknown Organization [facility] Address [address] [place] [address] Care Team Providers Care Spray Gun Striper Name Role Phone Len Adhikari MD Primary Care Provider Jovany Gonzalez MD Unavailable CrissyStaci jeong NP Unavailable [phone] Len Adhikari MD Unavailable Reanna Smith RD Unavailable Roshni Nascimento RN Unavailable Unavailable Kiet Swain MD Unavailable [phone] Winsome Pike APRN RESIDENTIAL REAL ESTATE SALES MANAGER Unavailable [phone] Tori HinesSW Unavailable Miranda Queen [facility] Unavailable Unavailable Winsome Pike APRN RESIDENTIAL REAL ESTATE SALES MANAGER Unavailable [phone] Marisel Armando MD Unavailable Marisel Armando MD Unavailable Inderjit Ugalde MD Unavailable [phone] Wesley Barrett MD Unavailable +[phone] Charles Jaramillo PA-C Unavailable +[phone] Miranda Queen [facility] Unavailable Unavailable Leeann Rinaldi MD Unavailable Miranda Queen [facility] Unavailable Unavailable Dyan Fuentes MD Primary Care Provider +[phone] Dyan Fuentes MD Unavailable + [phone] Katiana Read MD Unavailable +[phone] ManiMeme Dhara PhD Unavailable +[phone] Deena Garza ANALYSIS ENGINEER RESIDENTIAL REAL ESTATE SALES MANAGER Unavailable +[phone] Mary Del Cid TROLLEY CLEANER Unavailable + [phone] Elham Stack [facility] Unavailable [phone] Abbey Emerita Alisha [facility] Unavailable [phone] Mary Del Cid TROLLEY CLEANER Unavailable + [phone] Michelle Guzman DPM, Podiatry /Foot and Ankle Surgery Unavailable Dyan Fuentes MD Unavailable +[phone] Mary Del Cid NP Unavailable + [phone] Aubrey Jones MD Unavailable [phone] Blanquita Morales Unavailable Unavailable Aubrey Jones MD Unavailable + [phone] Reason for Visit * Reason Onset Date Comments Refill Request 12/09/2021 [employer] Sensor & Sales Representative Health Insurance Encounter Details Date Type Department Care Team (Late st Contact Info) Description [facility]21 [facility] [address] [facility] [address] [place] [address] Katiana Read MD [address] [place] [address] Refill Request ([employer] S[employer] & Sales Representative Health Insurance) Social History Tobacco Use Types Packs/Day Years [...] How often do you attend [facility] or mormonism services? 1 to 4 times per year [...] Answer Date Recorded PHQ-2 Score 2 02/02/2021 [facility] of Occupat ional [facility] - Occupational Stress Questionnaire Answer [...] a senior care (including now)? No 10/16/2021 Education Answer Date [...] st Contact Info) Description 08/18/2023 3:00 PM BOAT WORKER Office Visit [facility] [address] [place] [address] Katiana Read MD [address] [place] [address] documented as of this encounter Visit Diagnoses [...] as of this encounter Care Teams Spray Gun Striper Relationship Specialty Start Date End Date Len Adhikari MD PCP - General Family Practice 11/08/16 05/09/22 [place] [address] [place] [address] PCP - General Family Medicine 05/18/22 Jovany Gonzalez MD [facility] [address] [facility] [address] [place] [address] Orthopedics 02/15/17 Staci Woodward TROLLEY CLEANER [place] [address] [place] [address] Nurse Practitioner Nurse Practitioner Psych/Mental Health 05/10/17 [place] [address] [place] [address] Assigned PCP 11/14/16 01/22/22 Reanna Smith, RD [place] [address] [place], [place] 796[address] Thermite Bomb Loader Dietitian, Registered 07/25/19 Roshni Nascimento, RN Personal Advocate & Liaison (PAL) Family Medicine 08/18/20 Kiet Swain MD [address] [place] [address] 023724 Referring Physician Psychiatry 09/19/20 Winsome Pike APRN RESIDENTIAL REAL ESTATE SALES MANAGER [address] [place] [address] 478494 Nurse Practitioner Psychiatry 09/19/20 Tori Hines [facility] [address] [place] [address] [phone] Hadoop Administrator Hadoop Administrator - Clinical 09/19/20 Miranda Queen [facility] [address] [place] [address] Pharmacist Pharmacist 11/12/20 Winsome Pike APRN RESIDENTIAL REAL ESTATE SALES MANAGER [address] [place] [address] Assigned Behavioral Health Provider 01/04/21 07/02/22 Marisel Armando MD [address] [place] [address] Gastroenterology 02/05/21 Marisel Armando MD [address] [place] [address] Assigned Gastroenterology Provider 03/08/21 12/24/22 Inderjit Ugalde MD [address] [facility] [address] [place] [address] Assigned Surgical Provider 02/15/21 08/20/22 Wesley Barrett MD [address] [facility] 96 [place] [address] Assigned Neuroscience Provider 05/10/21 Charles Jaramillo PA-C [address] [address] Assigned Musculoskeletal Provider 04/26/21 10/15/22 Miranda Queen [facility] [address] [place] [address] Assigned MTM Pharmacist 12/05/21 03/26/22 [place] [address] [place] [address] Assigned PCP 01/23/22 05/14/22 Miranda Queen [facility] [address] [place] [address] Assigned MTM Pharmacist 04/07/22 05/14/22 [place] [address] [place] [address] Assigned PCP 05/15/22 Katiana Read MD [address] [facility] [address] [place] [address] Assigned Endocrinology Provider 06/19/22 Meme Singleton, PhD [address] [place] 588897 Assigned Behavioral Health Provider 07/03/22 12/31/22 Deena Garza APRN RESIDENTIAL REAL ESTATE SALES MANAGER [address] [place] 744387 Assigned Pain Medication Provider 07/19/22 10/29/22 Mary Del Cid, RAFAEL [address] [address] [place] 710047 Nurse Practitioner Nurse Practitioner 10/18/22 Elham Stack, [facility] [address] [place] [address] Pharmacist Pharmacist 10/19/22 Emerita Potter, [facility] Clinic Striper Spray Gun Hadoop Administrator - Clinical 10/29/22 11/02/22 Mary Del Cid, RAFAEL [address] [address] [place] [address] Assigned Pain Medication Provider 10/30/22 12/03/22 Michelle Guzman, DPM, Podiatry/Foot and Ankle Surgery [address] [place] [address] Assigned Musculoskeletal Provider 10/16/22 04/08/23 [place] [address] [address] [address] Assigned Pain Medication Provider 12/04/22 04/01/23 [place] [address] [address] [place] [address] Nurse Practitioner Nurse Practitioner 01/17/23 01/17/23 Aubrey Jones MD [address] [place] [address] Cardiovascular Disease 03/28/23 Blanquita Morales Thermite Bomb Loader Diabetes Education 04/25/23 Aubrey Jones MD [address] [place] [address] Assigned Heart and Vascular Provider 05/07/23 documented as of this encounter
--- OUTSIDE RECORDS SUMMARY | 2023-08-03 12:49 | XMS_ITS | Encounter Summary ---
Author Name Unknown Organization [facility] Address [address] [place] [address] Care Team Providers Care Medicare Contact Specialist Name Role Phone Len Adhikari MD Primary Care Provider Jovany Gonzalez MD Unavailable CrissyStaci jeong NP Unavailable [phone] Len Adhikari MD Unavailable Reanna Smith RD Unavailable Roshni Nascimento RN Unavailable Unavailable Kiet Swain MD Unavailable [phone] Winsome Pike APRN MISSION COORDINATOR Unavailable [phone] Tori HinesSW Unavailable Miranda Queen [facility] Unavailable Unavailable Winsome Pike APRN MISSION COORDINATOR Unavailable [phone] Marisel Armando MD Unavailable Marisel Armando MD Unavailable Inderjit Ugalde MD Unavailable [phone] Wesley Barrett MD Unavailable Charles Jaramillo PA-C Unavailable +[phone] Miranda Queen [facility] Unavailable Unavailable Leeann Rinaldi MD Unavailable Miranda Queen [facility] Unavailable Unavailable Dyan Fuentes MD Primary Care Provider +[phone] Dyan Fuentes MD Unavailable + [phone] Katiana Read MD Unavailable +[phone] Meme Singleton PhD Unavailable +[phone] Deena Garza SUPERVISOR SHIP MAINTENANCE SERVICES MISSION COORDINATOR Unavailable +[phone] Mary Del Cid ACCOUNTING MACHINE OPERATOR Unavailable + [phone] Elham Stack [facility] Unavailable [phone] Abbey Emerita M [facility] Unavailable [phone] Mary Del Cid NP Unavailable + [phone] Michelle Guzman DPM, Podiatry /Foot and Ankle Surgery Unavailable Dyan Fuentes MD Unavailable [phone] Mary Del Cid NP Unavailable + [phone] Aubrey Jones MD Unavailable + [phone] Blanquita Morales Unavailable Unavailable Aubrey Jones MD Unavailable + [phone] Reason for Visit * Reason Comments Medication Refill Encounter Details Date Type Department Care Team (Late st Contact Info) Description 11/18/2021 [facility] [address] [place] [address] [place] [address] [place] [address] Medication Refill Social History Tobacco [...] you attend chur ch or anabaptist services? 1 to 4 times [...] Score 2 02/02/2021 [facility] Stress Questionnaire Answer [...] 11/18/2021 5:39 PM CDT Prescription approved per [facility] Refill Protocol. Roshni Nascimento RN documented in this encounter Plan of Treatment Upcoming Encounters Date Type Department Care Team (Late st Contact Info) Description 08/18/2023 3:00 PM SENIOR NETWORK ENGINEER Office Visit [place] [address] [facility] [address] [place] [address] Katiana Read MD [address] [place] [address] documented as of this encounter Visit Diagnoses [...] documented as of this encounter Care Teams Medicare Contact Specialist Relationship Specialty Start Date End Date Len Adhikari MD PCP - General Family Practice 11/08/16 05/09/22 [place] [address] [place] [address] PCP - General Family Medicine 05/18/22 Jovany Gonzalez MD [facility] [address] [facility] [address] [place], [place] 766[address] Orthopedics 02/15/17 Staci Woodward ACCOUNTING MACHINE OPERATOR [place] [address] [place], [place] 2068[address] Nurse Practitioner Nurse Practitioner Psych/Mental Health 05/10/17 [place] [address] [place] [address] Assigned PCP 11/14/16 01/22/[address] [facility] [address] [place], [place] 9[address] Sewer Pipe Offbearer Dietitian, Registered 07/25/19 Roshni Nascimento, RN Personal Advocate & Liaison (PAL) Family Medicine 08/18/20 Kiet Swain MD [address] [place] [address] Referring Physician Psychiatry 09/19/20 Winsome Pike APRN MISSION COORDINATOR [address] [place] [address] 938484 Nurse Practitioner Psychiatry 09/19/20 Tori Hines [facility] [address] [place] [address] 319394 Federal Aid Coordinator Federal Aid Coordinator - Clinical 09/19/20 Miranda Queen [facility] [address] [place] [address] Pharmacist Pharmacist 11/12/20 Winsome Pike APRN MISSION COORDINATOR [address] [place] [address] Assigned Behavioral Health Provider 01/04/21 07/02/22 Marisel Armando MD [address] [place] [address] Gastroenterology 02/05/21 Marisel Armando MD [address] [place] [address] Assigned Gastroenterology Provider 03/08/21 12/24/22 Inderjit Ugalde MD [address] [place] [address] Assigned Surgical Provider 02/15/21 08/20/22 Wesley Barrett MD 420 [facility] 96 [place] [address] Assigned Neuroscience Provider 05/10/21 Charles Jaramillo PA-C [address] [facility] [address] [place] [address] Assigned Musculoskeletal Provider 04/26/21 10/15/22 [facility] [address] [place] [address] Assigned MTM Pharmacist 12/05/21 03/26/22 [place] [address] [place] [address] Assigned PCP 01/23/22 05/14/22 Miranda Queen [facility] [address] [place] [address] Assigned MTM Pharmacist 04/07/22 05/14/22 [place] [address] [place] [address] Assigned PCP 05/15/22 Katiana Read MD [address] [place] [address] Assigned Endocrinology Provider 06/19/22 [place] [address] [place] [place] [address] Assigned Behavioral Health Provider 07/03/22 12/31/22 Deena Garza APRN MISSION COORDINATOR [address] [place] [address] Assigned Pain Medication Provider 07/19/22 10/29/22 [place] [address] [place] [address] Nurse Practitioner Nurse Practitioner 10/18/22 Elham Stack, [facility] [address] [place], [place] 75[address] Pharmacist Pharmacist 10/19/22 Emerita Potter, [facility] Clinic Supervisor Elementary Education Federal Aid Coordinator - Clinical 10/29/22 11/02/22 Mary Del Cid, RAFAEL [address] [place] [address] Assigned Pain Medication Provider 10/30/22 12/03/22 Michelle Guzman DPM, Podiatry/Foot and Ankle Surgery [address] [place] [address] Assigned Musculoskeletal Provider 10/16/22 04/08/23 [place] [address] [place] [address] Assigned Pain Medication Provider 12/04/22 04/01/23 [place] [address] [place] [address] Nurse Practitioner Nurse Practitioner 01/17/23 01/17/23 Aubrey Jones MD [address] [place] [address] Cardiovascular Disease 03/28/23 Blanquita Morales Sewer Pipe Offbearer Diabetes Education 04/25/23 Aubrey Jones MD [address] [place] [address] Assigned Heart and Vascular Provider 05/07/23 documented as of this encounter
--- OUTSIDE RECORDS SUMMARY | 2023-08-03 12:49 | XMS_ITS | Encounter Summary ---
Author Name Unknown Organization [facility] Address [address] [place] [address] Care Team Providers Care Phone Screener Name Role Phone Len Adhikari MD Primary Care Provider Jovany Gonzalez MD Unavailable CrissyStaci jeong NP Unavailable [phone] Len Adhikari MD Unavailable Reanna Smith RD Unavailable Roshni Nascimento RN Unavailable Unavailable Kiet Swain MD Unavailable [phone] Winsome Pike APRN WELDER OXYHYDROGEN Unavailable [phone] Tori HinesSW Unavailable Miranda Queen [facility] Unavailable Unavailable Winsome Pike APRN WELDER OXYHYDROGEN Unavailable [phone] Marisel Armando MD Unavailable Marisel Armando MD Unavailable Inderjit Ugalde MD Unavailable [phone] Wesley Barrett MD Unavailable Charles Jaramillo PA-C Unavailable +[phone] Miranda Queen [facility] Unavailable Unavailable Leeann Rinaldi MD Unavailable Miranda Queen [facility] Unavailable Unavailable Dyan Fuentes MD Primary Care Provider [phone] Dyan Fuentes MD Unavailable [phone] Katiana Read MD Unavailable [phone] Meme Singleton PhD Unavailable +[phone] Deena Garza ONLINE CONTENT EDITOR [employer]ELDER O[employer]HYDROGEN Unavailable +[phone] Mary Del Cid APN Unavailable + [phone] StackElham Anthony [facility] Unavailable [phone] Emerita Potter [facility] Unavailable [phone] Mary Del Cid NP Unavailable + [phone] Michelle Guzman DPM, Podiatry /Foot and Ankle Surgery Unavailable Dyan Fuentes MD Unavailable [phone] Mary Del Cid NP Unavailable + [phone] Aubrey Jones MD Unavailable [phone] Blanquita Morales Unavailable Unavailable Aubrey Jones MD Unavailable + [phone] Encounter Details Date Type Department Care Team (Late st Contact Info) Description 11/24/2021 [facility] Neuro[facility] Clinic [address] [address] Elina Painting, ZITA Social History [...] How often do you attend chur or yazdanism services? 1 to 4 times [...] Answer Date Recorded PHQ-2 Score 2 02/02/2021 [facility] - Occupational Stress Questionnaire Answer Date [...] st Contact Info) Description 08/18/2023 3:00 PM SAND BUFFER Office Visit [facility] [address] [place] [address] Katiana Read MD [address] [place] [address] documented as of this encounter Visit Diagnoses [...] documented as of this encounter Care Teams Phone Screener Relationship Specialty Start Date End Date Len Adhkiari MD PCP - General Family Practice 11/08/16 05/09/22 [place] [address] [place] [address] PCP - General Family Medicine 05/18/22 Jovany Gonzalez MD [facility] 6600 [facility] 605 [place], [place] 275[address] Orthopedics 02/15/17 Staci Woodward APN [place] [address] [address] [place], [place] [address] Nurse Practitioner Nurse Practitioner Psych/Mental Health 05/10/17 [place] [address] [facility] [place] [address] Assigned PCP 11/14/16 01/22/[address] [facility] [address] [place] [address] Awning Spreader Dietitian, Registered 07/25/19 Roshni Nascimento, RN Personal Advocate & Liaison (PAL) Family Medicine 08/18/20 Kiet Swain MD [address] [place] [address] Referring Physician Psychiatry 09/19/20 Winsome Pike APRN WELDER OXYHYDROGEN [address] [place] [address] 228644 Nurse Practitioner Psychiatry 09/19/20 Tori Hines [facility] [address] [place] [address] [phone] Leaf Size Picker Leaf Size Picker - Clinical 09/19/20 Miranda Queen [facility] [address] [place] [address] Pharmacist Pharmacist 11/12/20 Winsome Pike APRN WELDER OXYHYDROGEN [address] [place] [address] [phone] Assigned Behavioral Health Provider 01/04/21 07/02/22 Marisel Armando MD [address] [place] [address] Gastroenterology 02/05/21 Marisel Armando MD [address] [place] [address] Assigned Gastroenterology Provider 03/08/21 12/24/22 Inderjit Ugalde MD [address] [address] Assigned Surgical Provider 02/15/21 08/20/22 Wesley Barrett MD [address] [place] [address] 96 [place] [address] Assigned Neuroscience Provider 05/10/21 Charles Jaramillo PA-C 6545 [facility] 450 [place] [address] Assigned Musculoskeletal Provider 04/26/21 10/15/22 [facility] [address] [place] [address] Assigned MTM Pharmacist 12/05/21 03/26/22 [place] [address] [place] [address] Assigned PCP 01/23/22 05/14/22 Miranda Queen [facility] [address] [place] [address] Assigned MTM Pharmacist 04/07/22 05/14/22 [place] [address] [place] [address] Assigned PCP 05/15/22 Katiana Read MD [address] [place] [address] 200 [place] [address] Assigned Endocrinology Provider 06/19/22 [place] [address] [place] 254577 Assigned Behavioral Health Provider 07/03/22 12/31/22 Deena Garza APRN WELDER OXYHYDROGEN [address] [place] 427907 Assigned Pain Medication Provider 07/19/22 10/29/22 [place] [address] [place] [address] Nurse Practitioner Nurse Practitioner 10/18/22 Elham Stack, [facility] [address] [facility] [place] [address] Pharmacist Pharmacist 10/19/22 Emerita Potter, [facility] Clinic Plasterer Maintenance Leaf Size Picker - Clinical 10/29/22 11/02/22 [place] [address] [place] [address] Assigned Pain Medication Provider 10/30/22 12/03/22 Michelle Guzman DPM, Podiatry/Foot and Ankle Surgery [address] [place] [address] Assigned Musculoskeletal Provider 10/16/22 04/08/23 [place] [address] [place] [address] Assigned Pain Medication Provider 12/04/22 04/01/23 [place] [address] [place] [address] Nurse Practitioner Nurse Practitioner 01/17/23 01/17/23 Aubrey Jones MD [address] [place] [address] Cardiovascular Disease 03/28/23 Blanquita Morales Awning Spreader Diabetes Education 04/25/23 Aubrey Jones MD [address] [place] [address] Assigned Heart and Vascular Provider 05/07/23 documented as of this encounter
--- OUTSIDE RECORDS SUMMARY | 2023-08-03 12:49 | XMS_ITS | Encounter Summary ---
Author Name Unknown Organization [facility] Address [address] [place] [address] Care Team Providers Care Search Engine Marketing Strategist Name Role Phone Len Adhikari MD Primary Care Provider Jovany Gonzalez MD Unavailable CrissyStaci jeong NP Unavailable [phone] Len Adhikari MD Unavailable [phone] Unavailable [phone] Roshni Nascimento RN Unavailable Unavailable Kiet Swain MD Unavailable [phone] Winsome Pike APRN JOB PLACEMENT OFFICER Unavailable [phone] Tori HinesSW Unavailable Miranda Queen [facility] Unavailable Unavailable Winsome Pike APRN JOB PLACEMENT OFFICER Unavailable [phone] Marisel Armando MD Unavailable Marisel Armando MD Unavailable Inderjit Ugalde MD Unavailable [phone] Wesley Barrett MD Unavailable [phone] Charles Jaramillo PA-C Unavailable +[phone] [facility] Unavailable Unavailable Leeann Rinaldi MD Unavailable Miranda Queen [facility] Unavailable Unavailable Dyan Fuentes MD Primary Care Provider [phone] Dyan Fuentes MD Unavailable +[phone] Katiana Read MD Unavailable [phone] Meme Singleton PhD Unavailable +[phone] Deena Garza RESTORATIVE CARE TECHNICIAN JOB PLACEMENT OFFICER Unavailable +[phone] THRU ORDER TAKER Unavailable +[phone] [facility] Unavailable [phone] Abbey Emerita M [facility] Unavailable [phone] Mary Del Cid NP Unavailable + [phone] Michelle Guzman DPM, Podiatry /Foot and Ankle Surgery Unavailable Dyan Fuentes MD Unavailable [phone] Mary Del Cid NP Unavailable + [phone] Aubrey Jones MD Unavailable [phone] Blanquita Morales Unavailable Unavailable Aubrey Jones MD Unavailable +[phone] Encounter Details Date Type Department Care Team (Late st Contact Info) Description 10/16/2021 [facility] [address] [place] [address] Wesley Barrett MD [address] [place] [address] 96 [place] [address] Social History Tobacco Use Types [...] Date Recorded PHQ-2 Score 2 02/02/2021 [facility] - Occupational [...] 3:00 PM OPERATION RESEARCH ANALYST Office Visit [facility] [address] [place] [address] Katiana Read MD [address] [place] [address] documented as of this encounter Visit Diagnoses [...] documented as of this encounter Care Teams Search Engine Marketing Strategist Relationship Specialty Start Date End Date Len Adhikari MD PCP - General Family Practice 11/08/16 05/09/22 [place] [address] [place] [address] PCP - General Family Medicine 05/18/22 Jovany Gonzalez MD [facility] 66[address] [facility] 605 [place] [address] Orthopedics 02/15/[address] THRU ORDER TAKER [place] [address] [place] [address] Nurse Practitioner Nurse Practitioner Psych/Mental Health 05/10/17 [place] [address] [facility] [place] [address] Assigned PCP 11/14/16 01/22/[address] [place] [address] [place] [address] High School Librarian Dietitian, Registered 07/25/19 Roshni Nascimento, RN Personal Advocate & Liaison (PAL) Family Medicine 08/18/20 Kiet Swain MD [address] [place] [address] [place] [address] Referring Physician Psychiatry 09/19/20 Winsome Pike APRN JOB PLACEMENT OFFICER [address] [place] [address] Nurse Practitioner Psychiatry 09/19/20 Tori Hines, [facility] [address] [place] [address] Any Commodity Buyer Any Commodity Buyer - Clinical 09/19/20 [facility] [address] [place] [address] Pharmacist Pharmacist 11/12/20 Winsome Pike APRN JOB PLACEMENT OFFICER [address] [place] [address] Assigned Behavioral Health Provider 01/04/21 07/02/22 Marisel Armando MD [address] [place] [address] Gastroenterology 02/05/21 Marisel Armando MD [address] [place] [address] Assigned Gastroenterology Provider 03/08/21 12/24/22 Inderjit Ugalde MD [address] [facility] 300 [place] [address] Assigned Surgical Provider 02/15/21 08/20/22 Wesley Barrett MD 420 [facility] 96 [place] [address] Assigned Neuroscience Provider 05/10/21 Charles Jaramillo PA-C 6545 [facility] 450 [place] [address] Assigned Musculoskeletal Provider 04/26/21 10/15/[address] [facility] [address] [place] [address] Assigned MTM Pharmacist 12/05/21 03/26/22 [place] [address] [place] [address] Assigned PCP 01/23/22 05/14/[address] [facility] [address] [place] [address] Assigned MTM Pharmacist 04/07/22 05/14/22 [place] [address] [place] [address] Assigned PCP 05/15/22 Katiana Read MD [address] [place] [address] 200 [place] [address] Assigned Endocrinology Provider 06/19/22 Meme Singleton, PhD [address] [place] [address] Assigned Behavioral Health Provider 07/03/22 12/31/22 Deena Garza, RESTORATIVE CARE TECHNICIAN JOB PLACEMENT OFFICER [address] [place] [address] Assigned Pain Medication Provider 07/19/22 10/29/22 [place] [address] [address] [place] [address] Nurse Practitioner Nurse Practitioner 10/18/22 Elham Stack, [facility] [address] [place] [address] Pharmacist Pharmacist 10/19/22 Emerita Potter, [facility] Clinic Supervisor Inspection Department Any Commodity Buyer - Clinical 10/29/22 11/02/22 [place] [address] [address] [address] Assigned Pain Medication Provider 10/30/22 12/03/22 Michelle Guzman, DPM, Podiatry/Foot and Ankle Surgery [address] [place] [address] Assigned Musculoskeletal Provider 10/16/22 04/08/23 [place] [address] [place] [address] Assigned Pain Medication Provider 12/04/22 04/01/23 [place] [address] [address] [address] Nurse Practitioner Nurse Practitioner 01/17/23 01/17/23 Aubrey Jones MD [address] [place] [address] Cardiovascular Disease 03/28/23 Blanquita Morales High School Librarian Diabetes Education 04/25/23 Aubrey Jones MD [address] [place] [address] Assigned Heart and Vascular Provider 05/07/23 documented as of this encounter
--- OUTSIDE RECORDS SUMMARY | 2023-08-03 12:49 | XMS_ITS | Encounter Summary ---
Author Name Unknown Organization [place] Address [address] [place] [address] Care Team Providers Care Program Developer Name Role Phone Len Adhikari MD Primary Care Provider Jovany Gonzalez MD Unavailable CrissyStaci jeong NP Unavailable [phone] Len Adhikari MD Unavailable [phone] Unavailable Roshni Nascimento RN Unavailable Unavailable Kiet Swain MD Unavailable [phone] Winsome Pike APRN SHEARER HELPER Unavailable [phone] Tori HinesSW Unavailable Miranda Queen [facility] Unavailable Unavailable Winsome Pike APRN SHEARER HELPER Unavailable [phone] Marisel Armando MD Unavailable Marisel Armando MD Unavailable Inderjit Ugalde MD Unavailable [phone] Wesley Barrett MD Unavailable +[phone] Charles Jaramillo PA-C Unavailable +[phone] Miranda Queen [facility] Unavailable Unavailable Leeann Rinaldi MD Unavailable Miranda Queen [facility] Unavailable Unavailable Dyan Fuentes MD Primary Care Provider [phone] Dyan Fuentes MD Unavailable +[phone] Katiana Read MD Unavailable +[phone] Meme Singleton PhD Unavailable +[phone] Deena Garza SEASONAL DRIVER SHEARER HELPER Unavailable +[phone] Mary Del Cid BOARDING MOTHER Unavailable +[phone] StackElham [facility] Unavailable [phone] Abbey Emerita M [facility] Unavailable [phone] Mary Del Cid NP Unavailable + [phone] Michelle Guzman DPM, Podiatry /Foot and Ankle Surgery Unavailable Dyan Fuentes MD Unavailable +[phone] Mary Del Cid NP Unavailable + [phone] Aubrey Jones MD Unavailable [phone] Blanquita Morales Unavailable Unavailable Aubrey Jones MD Unavailable +[phone] Encounter Details Date Type Department Care Team (Late st Contact Info) Description 10/16/2021 [facility] [address] [place] [address] Wesley Barrett MD [address] [place] [address] 96 [place] [address] Social History Tobacco Use Types [...] How often do you attend chur or faith services? 1 to 4 times [...] st Contact Info) Description 08/18/2023 3:00 PM GLOVE EXAMINER Office Visit [facility] [address] [place] [address] Katiana Read MD [address] [place] [address] documented as of this encounter Visit Diagnoses [...] documented as of this encounter Care Teams Program Developer Relationship Specialty Start Date End Date Len Adhikari MD PCP - General Family Practice 11/08/16 05/09/22 [place] [address] [place] [address] PCP - General Family Medicine 05/18/22 Jovany Gonzalez MD [facility] [address] [facility] 605 [place] [address] Orthopedics 02/15/17 Staci Woodward BOARDING MOTHER [place] [address] [place] [address] Nurse Practitioner Nurse Practitioner Psych/Mental Health 05/10/17 [place] [address] [facility] [place] [address] Assigned PCP 11/14/16 01/22/[address] [place] [address] [place] [address] Independent Living Instructor Dietitian, Registered 07/25/19 Roshni Nascimento, RN Personal Advocate & Liaison (PAL) Family Medicine 08/18/20 Kiet Swain MD [address] [place] [address] [place] [address] Referring Physician Psychiatry 09/19/20 Winsome Pike APRN SHEARER HELPER [address] [place] [address] Nurse Practitioner Psychiatry 09/19/20 Tori Hinse, [facility] [address] [place] [address] Land Checker Land Checker - Clinical 09/19/20 [facility] [address] [place] [address] Pharmacist Pharmacist 11/12/20 Winsome Pike APRN SHEARER HELPER [address] [place] [address] Assigned Behavioral Health Provider 01/04/21 07/02/22 Marisel Armando MD [address] [place] [address] Gastroenterology 02/05/21 Marisel Armando MD [address] [place] [address] Assigned Gastroenterology Provider 03/08/21 12/24/22 Inderjit Ugalde MD [address] [facility] 300 [place] [address] Assigned Surgical Provider 02/15/21 08/20/22 Wesley Barrett MD 420 [facility] 96 [place] [address] Assigned Neuroscience Provider 05/10/21 Charles Jaramillo PA-C 6545 [facility] 450 [place] [address] Assigned Musculoskeletal Provider 04/26/21 10/15/22 Miranda Queen [facility] [address] [place] [address] Assigned MTM Pharmacist 12/05/21 03/26/22 [place] [address] [place] [address] Assigned PCP 01/23/22 05/14/22 Miranda Queen [facility] [address] [place] [address] Assigned MTM Pharmacist 04/07/22 05/14/22 [place] [address] [place] [address] Assigned PCP 05/15/22 Katiana Read MD [address] [place] [address] 200 [place] [address] Assigned Endocrinology Provider 06/19/22 [place] [address] [place] [address] Assigned Behavioral Health Provider 07/03/22 12/31/22 Deena Garza, SEASONAL DRIVER SHEARER HELPER [address] [place] [address] Assigned Pain Medication Provider 07/19/22 10/29/22 [place] [address] [address] [address] Nurse Practitioner Nurse Practitioner 10/18/22 Elham Stack, [facility] 3033 [place] [address] Pharmacist Pharmacist 10/19/22 Emerita Potter, [facility] Clinic Software Integrator Land Checker - Clinical 10/29/22 11/02/22 [place] [address] [address] [address] Assigned Pain Medication Provider 10/30/22 12/03/22 Michelle Guzman, DPM, Podiatry/Foot and Ankle Surgery [address] [place] [address] Assigned Musculoskeletal Provider 10/16/22 04/08/23 [place] [address] [place] [address] Assigned Pain Medication Provider 12/04/22 04/01/23 [place] [address] [address] [address] Nurse Practitioner Nurse Practitioner 01/17/23 01/17/23 Aubrey Jones MD [address] [place] [address] Cardiovascular Disease 03/28/23 Blanquita Morales Independent Living Instructor Diabetes Education 04/25/23 Aubrey Jones MD [address] [place] [address] Assigned Heart and Vascular Provider 05/07/23 documented as of this encounter
--- OUTSIDE RECORDS SUMMARY | 2023-08-03 12:49 | XMS_ITS | Encounter Summary ---
Author Name Unknown Organization [place] Address [address] [place] [address] Care Team Providers Care Director Card Name Role Phone Len Adhikari MD Primary Care Provider Jovany Gonzalez MD Unavailable CrissyStaci jeong NP Unavailable [phone] Len Adhikari MD Unavailable Reanna Smith RD Unavailable Roshni Nascimento RN Unavailable Unavailable Kiet Swain MD Unavailable [phone] Winsome Pike APRN PROTOZOOLOGIST Unavailable [phone] Tori HinesSW Unavailable Miranda Queen [facility] Unavailable Unavailable Winsome Pike APRN PROTOZOOLOGIST Unavailable [phone] Marisel Armando MD Unavailable Marisel Armando MD Unavailable Inderjit Ugalde MD Unavailable [phone] Wesley Barrett MD Unavailable Charles Jaramillo PA-C Unavailable [phone] Miranda Queen [facility] Unavailable Unavailable Leeann Rinaldi MD Unavailable Miranda Queen [facility] Unavailable Unavailable Dyan Fuentes MD Primary Care Provider [phone] Dyan Fuentes MD Unavailable +[phone] Katiana Read MD Unavailable [phone] Meme Singleton PhD Unavailable +[phone] Deena Garza MAGNESIUM MILL OPERATOR PROTOZOOLOGIST Unavailable +[phone] Mary Del Cid CAR DROPPER Unavailable + [phone] StackElham [facility] Unavailable [phone] Emerita Potter [facility] Unavailable [phone] Mary Del Cid NP Unavailable + [phone] Michelle Guzman DPM, Podiatry /Foot and Ankle Surgery Unavailable Dyan Fuentes MD Unavailable [phone] Mary Del Cid NP Unavailable + [phone] Aubrey Jones MD Unavailable [phone] Blanquita Morales Unavailable Unavailable Aubrey Jones MD Unavailable + [phone] Encounter Details Date Type Department Care Team (Late st Contact Info) Description 09/24/2021 [facility] Neurosurgery Clinic [address] [address] Wesley Barrett MD [address] [place] [address] Social History Tobacco Use Types Packs/Day [...] Answer Date Recorded PHQ-2 Score 2 02/02/2021 [facility] [...] st Contact Info) Description 08/18/2023 3:00 PM STORE SALES CONSULTANT Office Visit [facility] [address] [place] [address] Katiana Read MD [address] [facility] 200 [place] [address] documented as of this encounter Visit Diagnoses [...] as of this encounter Care Teams Director Card Relationship Specialty Start Date End Date Len Adhikari MD PCP - General Family Practice 11/08/16 05/09/22 [place] [address] [place] [address] PCP - General Family Medicine 05/18/22 Jovany Gonzalez MD [facility] 6600 [facility] 605 [place], [place] 287[address] Orthopedics 02/15/17 Staci Woodward CAR DROPPER [place] [address] [place], [place] 470[address] Nurse Practitioner Nurse Practitioner Psych/Mental Health 05/10/17 [place] [address] [facility] [place] [address] Assigned PCP 11/14/16 01/22/[address] [facility] [address] [place] [address] Nutritional Services Director Dietitian, Registered 07/25/19 Roshni Nascimento, RN Personal Advocate & Liaison (PAL) Family Medicine 08/18/20 Kiet Swain MD [address] [place] [address] [address] [place] [address] Referring Physician Psychiatry 09/19/20 Winsome Pike APRN PROTOZOOLOGIST [address] [place] [address] Nurse Practitioner Psychiatry 09/19/20 Tori Hines, [facility] [address] [place] [address] [phone] Word Processor Operator Word Processor Operator - Clinical 09/19/20 Miranda Queen [facility] [address] [place] [address] Pharmacist Pharmacist 11/12/20 Winsome Pike APRN PROTOZOOLOGIST [address] [place] [address] [phone] Assigned Behavioral Health Provider 01/04/21 07/02/22 Marisel Armando MD [address] [place] [address] Gastroenterology 02/05/21 Marisel Armando MD 9 [place] [address] Assigned Gastroenterology Provider 03/08/21 12/24/22 Inderjit Ugalde MD [address] [address] Assigned Surgical Provider 02/15/21 08/20/22 Wesley Barrett MD 420 [facility] 96 [place] [address] Assigned Neuroscience Provider 05/10/21 Charles Jaramillo PA-C 6545 [facility] 450 [place] [address] Assigned Musculoskeletal Provider 04/26/21 10/15/22 [facility] [address] [place] [address] Assigned MTM Pharmacist 12/05/21 03/26/22 [place] [address] [place] [address] Assigned PCP 01/23/22 05/14/22 [facility] [address] [place] [address] Assigned MTM Pharmacist 04/07/22 05/14/22 [place] [address] [place] [address] Assigned PCP 05/15/22 Katiana Read MD [address] [place] [address] 200 [place] [address] Assigned Endocrinology Provider 06/19/22 [place] [address] [place] [address] Assigned Behavioral Health Provider 07/03/22 12/31/22 Deena Garza, MAGNESIUM MILL OPERATOR PROTOZOOLOGIST [address] [place] [address] Assigned Pain Medication Provider 07/19/22 10/29/22 [place] [address] [place] [address] Nurse Practitioner Nurse Practitioner 10/18/22 Elham Stack, [facility] [address] [place] [address] Pharmacist Pharmacist 10/19/22 Emerita Potter, [facility] Clinic Automotive Fleet Supervisor Word Processor Operator - Clinical 10/29/22 11/02/22 [place] [address] [place] [address] Assigned Pain Medication Provider 10/30/22 12/03/22 Michelle Guzman, DPM, Podiatry/Foot and Ankle Surgery [address] [place] [address] Assigned Musculoskeletal Provider 10/16/22 04/08/23 [place] [address] [place] [address] Assigned Pain Medication Provider 12/04/22 04/01/23 [place] [address] [place] [address] Nurse Practitioner Nurse Practitioner 01/17/23 01/17/23 Aubrey Jones MD [address] [place] [address] Cardiovascular Disease 03/28/23 Blanquita Morales Nutritional Services Director Diabetes Education 04/25/23 Aubrey Jones MD [address] [place] [address] Assigned Heart and Vascular Provider 05/07/23 documented as of this encounter
--- OUTSIDE RECORDS SUMMARY | 2023-08-03 12:49 | XMS_ITS | Encounter Summary ---
Author Name Unknown Organization [facility] Address [address] [place] [address] Care Team Providers Care Barrel Maker Name Role Phone Len Adhikari MD Primary Care Provider [phone] Jovany Gonzalez MD Unavailable [phone] CrissyStaci jeong NP Unavailable [phone] Len Adhikari MD Unavailable [phone] Unavailable [phone] Roshni Nascimento RN Unavailable Unavailable Kiet Swain MD Unavailable [phone] Winsome Pike APRN RED CROSS WORKER Unavailable [phone] Tori HinesSW Unavailable Miranda Queen [facility] Unavailable Unavailable Winsome Pike APRN RED CROSS WORKER Unavailable [phone] Marisel Armando MD Unavailable Marisel Armando MD Unavailable Inderjit Ugalde MD Unavailable [phone] Wesley Barrett MD Unavailable Charles Jaramillo PA-C Unavailable [phone] Miranda Queen [facility] Unavailable Unavailable Leeann Rinaldi MD Unavailable Miranda Queen [facility] Unavailable Unavailable Dyan Fuentes MD Primary Care Provider [phone] Dyan Fuentes MD Unavailable + [phone] Katiana Read MD Unavailable +[phone] Meme Singleton PhD Unavailable +[phone] Deena Garza DIVISION SERVICE MANAGER RED CROSS WORKER Unavailable [phone] Mary Del Cid ANIMAL HOSPITAL OFFICE SUPERVISOR Unavailable + [phone] Elham Stack [facility] Unavailable [phone] Abbey Emerita M [facility] Unavailable [phone] Mary Del Cid NP Unavailable + [phone] Michelle Guzman DPM, Podiatry /Foot and Ankle Surgery Unavailable Dyan Fuetnes MD Unavailable [phone] Mary Del Cid NP Unavailable + [phone] Aubrey Jones MD Unavailable [phone] Blanquita Morales Unavailable Unavailable Aubrey Jones MD Unavailable + [phone] Reason for Visit * Reason Comments Medication Refill Encounter Details Date Type Department Care Team (Late st Contact Info) Description 12/28/2021 [facility] [address] [place] [address] [place] [address] [place] [address] Medication Refill Social History Tobacco [...] 2 02/02/2021 [facility] - Occupational Stress Questionnaire Answer Date [...] st Contact Info) Description 08/18/2023 3:00 PM AUTOGLAZIER Office Visit [facility] [address] [facility] [address] [place] [address] Katiana Read MD [address] [facility] 200 [place] [address] documented as of this encounter Visit Diagnoses [...] as of this encounter Care Teams Barrel Maker Relationship Specialty Start Date End Date Len Adhikari MD PCP - General Family Practice 11/08/16 05/09/22 [place] [address] [place] [address] PCP - General Family Medicine 05/18/22 Jovany Gonzalez MD [facility] 6600 [facility] 605 [place], [place] 116[address] Orthopedics 02/15/17 Staci Woodward ANIM[facility] HOSPITAL OFFICE SUPERVISOR [place] [address] [place], [place] 7[address] Nurse Practitioner Nurse Practitioner Psych/Mental Health 05/10/17 [place] [address] [place] [address] Assigned PCP 11/14/16 01/22/[address] [facility] [address] [place], [place] [address] Farm Implement Mechanic Dietitian, Registered 07/25/19 Roshni Nascimento, RN Personal Advocate & Liaison (PAL) Family Medicine 08/18/20 Kiet Swain MD [address] [place] [address] Referring Physician Psychiatry 09/19/20 Winsome Pike APRN RED CROSS WORKER [address] [place] [address] [phone] Nurse Practitioner Psychiatry 09/19/20 Tori Hines [facility] [address] [place] [address] 551964 Professional Architect Professional Architect - Clinical 09/19/20 [place] [address] [place] [address] Pharmacist Pharmacist 11/12/20 Winsome Piek APRN RED CROSS WORKER [address] [place] [address] Assigned Behavioral Health Provider 01/04/21 07/02/22 Marisel Armando MD [address] [place] [address] Gastroenterology 02/05/21 Marisel Armando MD [address]09 [place] [address] Assigned Gastroenterology Provider 03/08/21 12/24/22 Inderjit Ugalde MD [address] [facility] 300 [place] [address] Assigned Surgical Provider 02/15/21 08/20/22 Wesley Barrett MD 420 [facility] 96 [place] [address] Assigned Neuroscience Provider 05/10/21 Charles Jaramillo PA-C 6545 [facility] 450 [place] [address] Assigned Musculoskeletal Provider 04/26/21 10/15/22 [facility] [address] [place] [address] Assigned MTM Pharmacist 12/05/21 03/26/22 [place] [address] [place] [address] Assigned PCP 01/23/22 05/14/22 Miranda Queen [facility] [address] [place] [address] Assigned MTM Pharmacist 04/07/22 05/14/22 [place] [address] [place] [address] Assigned PCP 05/15/22 Katiana Read MD [address] [place] [address] Assigned Endocrinology Provider 06/19/22 [place] [address] [address] [place] [address] Assigned Behavioral Health Provider 07/03/22 12/31/22 Deena Garza APRN RED CROSS WORKER [address] [address] Assigned Pain Medication Provider 07/19/22 10/29/22 Mary Del Cid, RAFAEL [address] [address] [place] [address] Nurse Practitioner Nurse Practitioner 10/18/22 Elham Stack, [facility] [address], [place] [address] Pharmacist Pharmacist 10/19/22 Emerita Potter, [facility] Clinic Oracle Technical Architect Professional Architect - Clinical 10/29/22 11/02/22 Mary Del Cid, RAFAEL [address] [address] [place] [address] Assigned Pain Medication Provider 10/30/22 12/03/22 Michelle Guzman DPM, Podiatry/Foot and Ankle Surgery [address] [address] Assigned Musculoskeletal Provider 10/16/22 04/08/23 [place] [address] [place] [address] Assigned Pain Medication Provider 12/04/22 04/01/23 [place] [address] [address] [address] Nurse Practitioner Nurse Practitioner 01/17/23 01/17/23 Aubrey Jones MD [address] [place] [address] Cardiovascular Disease 03/28/23 Blanquita Morales Farm Implement Mechanic Diabetes Education 04/25/23 Aubrey Jones MD [address] [place] [address] Assigned Heart and Vascular Provider 05/07/23 documented as of this encounter
--- NOTE | 2023-08-03 12:50 | P.OPTPRC_ITS ---
Procedure Note Date of procedure: 08/03/23 Will [facility] bill your pro fee for this procedure?: Yes Procedure Description: SURGEON: Elham Multani MD PREOPERATIVE DIAGNOSIS: Nuclear sclerotic cataract, right eye. POSTOPERATIVE DIAGNOSIS: Nuclear sclerotic cataract, right eye. NAME OF OPERATION: Phacoemulsification of cataract with posterior chamber intraocular lens implantation in the right eye. ANESTHESIA: Topical. ESTIMATED BLOOD LOSS: Less than 2 cc. COMPLICATIONS: None. PATHOLOGY SPECIMEN: None. INDICATIONS: See consult note for details. The risks, benefits and alternatives of the procedure were explained to the patient, who elected to proceed and signed informed consent to do so. PROCEDURE: The patient was brought to the pre-holding area where the right eye was identified as the operative eye. I placed my initials above this eye. The patient received eye drops consisting of 0.5% tetracaine, 1% tropicamide, 10% phenylephrine, and 0.5% ketorolac. The patient was then brought to the operating room where the right eye was again identified as the operative eye. The eye was prepped with Betadine and draped in the usual sterile ophthalmic fashion. A #15 super-sharp blade was used to create a paracentesis site. 1% non-preserved intracameral lidocaine was injected into the anterior chamber. Endocoat was injected into the anterior chamber. A 2.4 mm keratome was used to create a three-plane self-sealing incision 1 mm anterior to the temporal limbus. A cystotome was used to create an anterior capsular leaflet. The Utrata forceps were used to extend this to form a continuous curvilinear capsulorrhexis. Hydrodissection was performed. The cataract was removed with phacoemulsification using the [id number] technique. The irrigation and aspiration tip was used to remove the remaining cortex. Healon was injected into the capsular bag. An ELLIOTT ZCB00 intraocular lens of 21.0 diopters was injected into the capsular bag. The irrigation and aspiration tip was used to remove the remaining viscoelastic. Balanced salt solution on a cannula was used to hydrate the wound, and the wound was found to be watertight. The pupil was noted to be round. DISPOSITION: The patient was taken to the recovery room and discharged to home in stable condition. The patient was instructed to call me or go to the emergency department with any sudden change, including dramatic loss of vision, severe pain in the eye or eyebrow region, nausea, or vomiting. The patient will follow up in the clinic tomorrow morning.
--- OUTSIDE RECORDS SUMMARY | 2023-08-03 12:50 | XMS_ITS | Encounter Summary ---
Author Name Unknown Organization [place] Address [address] [place] [address]. [place] [address] Care Team Providers Care Ply Bander Name Role Phone Len Adhikari MD Primary Care Provider Jovany Gonzalez MD Unavailable [phone] CrissyStaci jeong PIECE GOODS PACKER Unavailable [phone] Len Adhikari MD Unavailable [phone] Unavailable Katiana Read MD Unavailable [phone] Roshni Nascimento RN Unavailable Unavailable Kiet Swain MD Unavailable [phone] Winsome Pike APRN ADMISSIONS GATE ATTENDANT Unavailable [phone] Tori HinesSW Unavailable Miranda Queen [facility] Unavailable Unavailable Winsome Pike APRN ADMISSIONS GATE ATTENDANT Unavailable [phone] Marisel Armando MD Unavailable Marisel Armando MD Unavailable Inderjit Ugalde MD Unavailable [phone] Wesley Barrett MD Unavailable [phone] Charles Jaramillo PA-C Unavailable [phone] Miranda Queen [facility] Unavailable Unavailable Leeann Rinaldi MD Unavailable Miranda Queen [facility] Unavailable Unavailable Dyan Fuentes MD Primary Care Provider [phone] Dyan Fuentes MD Unavailable [phone] Katiana Read MD Unavailable [phone] Meme Singleton PhD Unavailable +[phone] Deena Garza MILL CRANE OPERATOR ADMISSIONS GATE ATTENDANT Unavailable [phone] Mary Del Cid PIECE GOODS PACKER Unavailable + [phone] Elham Stack [facility] Unavailable [phone] Emerita Potter [facility] Unavailable [phone] Mary Del Cid PIECE GOODS PACKER Unavailable + [phone] Michelle Guzman DPM, Podiatry /Foot and Ankle Surgery Unavailable Dyan Fuentes MD Unavailable [phone] Mary Del Cid NP Unavailable + [phone] Aubrey Jones MD Unavailable [phone] Blanquita Morales Unavailable Unavailable Aubrey Jones MD Unavailable [phone] Reason for Visit * Reason Onset Date Comments Call Back 06/12/2021 Encounter Details Date Type Department Care Team (Late st Contact Info) Description 06/12/2021 Telephone [facility]ology [facility] [address] [address] Marisel Armando MD [address] [place] [address] Call Back Social History Tobacco Use [...] you attend chur ch or evangelical services? Never 09/20/2020 Do you belong to [...] Answer Date Recorded PHQ-2 Score 2 02/02/2021 [facility] Answer Date Recorded [...] in a group home (including now)? No 09/20/2020 Education Answer [...] COVID-19? No / Unsure 06/08/2021 6:55 PM FLOOR SANDER documented as of this encounter Miscellaneous Notes * Telephone Encounter - Dede Rahman - 06/12/2021 2:30 PM CST [facility] Phone Message May a detailed message be left on voicemail: yes Reason for Call: Other: [facility] called in requesting a call back, because the pt is able to get labs at that location however they want to be sure that the pt gets the correct labs done. Please reach out. Thank you. Action Taken: Message routed to: [facility] hep Travel Screening: Not Applicable R SANDER documented in this encounter Plan of Treatment Upcoming Encounters Date Type Department Care Team (Late st Contact Info) Description 08/18/2023 3:00 PM FLOOR SANDER Office Visit [facility] [address] [place] [address] Katiana Read MD [address] [place] [address] documented as of this encounter Visit Diagnoses [...] documented as of this encounter Care Teams Ply Bander Relationship Specialty Start Date End Date Len Adhikari MD PCP - General Family Practice 11/08/16 05/09/22 [place] [address] [place] [address] PCP - General Family Medicine 05/18/22 Jovany Gonzalez MD [facility] [address] [facility] [address] [place] [address] Orthopedics 02/15/17 Staci Woodward NP [facility] [address] [place], [place] 57[address] Nurse Practitioner Nurse Practitioner Psych/Mental Health 05/10/17 [place] [address] [place] [address] Assigned PCP 11/14/16 01/22/[address] [facility] [address] [place] [address] Chief [place]son Division Dietitian, Registered 07/25/19 Katiana Read MD [address] [place] [address] [address] [place] [address] Assigned Endocrinology Provider 05/02/20 08/01/21 Roshni Nascimento, RN Personal Advocate & Liaison (PAL) Family Medicine 08/18/20 Kiet Swain MD [address] [place] [address] [id number] Referring Physician Psychiatry 09/19/20 Winsome Pike APRN ADMISSIONS GATE ATTENDANT [address] [place] [address] [id number] Nurse Practitioner Psychiatry 09/19/20 Tori Hines, [facility] [address] [place] [address] Yard Manager Yard Manager - Clinical 09/19/20 Miranda Queen, [facility] [address] [place] [address] Pharmacist Pharmacist 11/12/20 Winsome Pike APRN ADMISSIONS GATE ATTENDANT [address] [address] Assigned Behavioral Health Provider 01/04/21 07/02/22 Marisel Armando MD [address] [place] [address] [id number] Gastroenterology 02/05/21 Marisel Armando MD [address] [place] [address] 375665 Assigned Gastroenterology Provider 03/08/21 12/24/22 Inderjit Ugalde MD [address] [facility] [address] [place], [place] 354137 Assigned Surgical Provider 02/15/21 08/20/22 Wesley Barrett MD [address] [facility] 96 [place], [place] 4459[address] Assigned Neuroscience Provider 05/10/21 Charles Jaramillo PA-C [address] [address] Assigned Musculoskeletal Provider 04/26/21 10/15/22 Miranda Queen [facility] [address] [place] [address] Assigned MTM Pharmacist 12/05/21 03/26/22 [place] [address] [place] [address] Assigned PCP 01/23/22 05/14/22 Miranda Queen [facility] [address] [place] [address] Assigned MTM Pharmacist 04/07/22 05/14/22 [place] [address] [place] [address] Assigned PCP 05/15/22 Katiana Read MD [address] [place] [address] Assigned Endocrinology Provider 06/19/22 [place] [address] [place] [address] Assigned Behavioral Health Provider 07/03/22 12/31/22 Deena Garza APRN ADMISSIONS GATE ATTENDANT [address] [place] [address] Assigned Pain Medication Provider 07/19/22 10/29/22 Mary Del Cid, RAFAEL [address] [place] [address] Nurse Practitioner Nurse Practitioner 10/18/22 Elham Stack, [facility] [address] [place] [address] Pharmacist Pharmacist 10/19/22 Emerita Potter, [facility] Clinic Joint Finisher Yard Manager - Clinical 10/29/22 11/02/22 [place] [address] [place] [address] Assigned Pain Medication Provider 10/30/22 12/03/22 Michelle Guzman, ALDOM, Podiatry/Foot and Ankle Surgery [address] [place] [address] Assigned Musculoskeletal Provider 10/16/22 04/08/23 [place] [address] [place] [address] Assigned Pain Medication Provider 12/04/22 04/01/23 [place] [address] [place] [address] Nurse Practitioner Nurse Practitioner 01/17/23 01/17/23 Aubrey Jones MD [address] [place] [address] Cardiovascular Disease 03/28/23 Blanquita Morales Chief [facility] Division Diabetes Education 04/25/23 Aubrey Jones MD [address] [place] [address] Assigned Heart and Vascular Provider 05/07/23 documented as of this encounter
--- OUTSIDE RECORDS SUMMARY | 2023-08-03 12:50 | XMS_ITS | Encounter Summary ---
Author Name Unknown Organization [place] Address [address] [place] [address]. [place] [address] Care Team Providers Care Hide Cooking Operator Name Role Phone Len Adhikari MD Primary Care Provider Jovany Gonzalez MD Unavailable CrissyStaci jeong EMPLOYEE SERVICE OFFICER Unavailable [phone] Len Adhikari MD Unavailable Reanna Smith RD Unavailable Katiana Read MD Unavailable [phone] Roshni Nascimento RN Unavailable Unavailable Kiet Swain MD Unavailable [phone] Winsome Pike APRN CRITICAL CARE REGISTERED NURSE Unavailable [phone] Tori HinesSW Unavailable Miranda Queen [facility] Unavailable Unavailable Winsome Pike APRN CRITICAL CARE REGISTERED NURSE Unavailable [phone] Marisel Armando MD Unavailable Marisel Armando MD Unavailable Inderjit Ugalde MD Unavailable [phone] Wesley Barrett MD Unavailable [phone] Charles Jaramillo PA-C Unavailable [phone] Miranda Queen [facility] Unavailable Unavailable Leeann Rinaldi MD Unavailable Miranda Queen [facility] Unavailable Unavailable Dyan Fuentes MD Primary Care Provider [phone] Dyan Fuentes MD Unavailable [phone] Katiana Read MD Unavailable [phone] Meme Singleton PhD Unavailable +[phone] Deena Garza CONSERVATION TECHNICIAN CRITICAL CARE REGISTERED NURSE Unavailable [phone] Mary Del Cid EMPLOYEE SERVICE OFFICER Unavailable + [phone] Elham Stack [facility] Unavailable [phone] Emerita Potter [facility] Unavailable [phone] Mary Del Cid EMPLOYEE SERVICE OFFICER Unavailable +[phone] Michelle Guzman DPM, Podiatry /Foot and Ankle Surgery Unavailable Dyan Fuentes MD Unavailable [phone] Mary Del Cid NP Unavailable +[phone] Aubrey Jones MD Unavailable [phone] Blanquita Morales Unavailable Unavailable Aubrey Jones MD Unavailable [phone] Encounter Details Date Type Department Care Team (Late st [facility]) Description 06/18/2021 [facility] Neuro[facility] Clinic [address] [address] Pollo Hayes RN Social History [...] often do you attend chur ch or muslim services? Never 09/20/2020 Do you belong to [...] PHQ-2 Score 2 02/02/2021 [facility] Occupational Stress Questionnaire Answer Date [...] COVID-19? No / Unsure 06/18/2021 7:29 PM MAKE UP OPERATOR HELPER documented as of this encounter Miscellaneous Notes * Telephone Encounter - Marilu Brannon - 06/19/2021 12:16 PM CST Pt would like a call back. Please call her at [phone] UP OPERATOR HELPER documented in this encounter Plan of Treatment Upcoming Encounters Date Type Department Care Team (Late st Contact Info) Description 08/18/2023 3:00 PM MAKE UP OPERATOR HELPER Office Visit [facility] [address] [place] [address] Katiana Read MD [address] [place] [address] documented as of this encounter [...] documented as of this encounter Care Teams Hide Cooking Operator Relationship Specialty Start Date End Date Len Adhikari MD PCP - General Family Practice 11/08/16 05/09/22 [place] [address] [place] [address] PCP - General Family Medicine 05/18/22 Jovany Gonzalez MD [facility] [address] [facility] [address] [place], [place] 54[address] Orthopedics 02/15/17 Staci Woodward NP [place] [address] [place], [place] [id number] Nurse Practitioner Nurse Practitioner Psych/Mental Health 05/10/17 [place] [address] [place] [address] Assigned PCP 11/14/16 01/22/[address] [facility] [address] [place] [address] Sports Announcer Dietitian, Registered 07/25/19 Katiana Read MD [address] [place] [address] Assigned Endocrinology Provider 05/02/20 08/01/21 Roshni Nascimento, RN Personal Advocate & Liaison (PAL) Family Medicine 08/18/20 Kiet Swain MD [address] [place] [address] Referring Physician Psychiatry 09/19/20 Winsome Pike APRN CRITICAL CARE REGISTERED NURSE [address] [place] [address] 755404 Nurse Practitioner Psychiatry 09/19/20 Tori Hines [facility] [address] [place] [address] 476294 Lead Cargo Mover Lead Cargo Mover - Clinical 09/19/20 Miranda Queen [facility] [address] [place] [address] Pharmacist Pharmacist 11/12/20 Winsome Pike APRN CRITICAL CARE REGISTERED NURSE [address] [place] [address] 846504 Assigned Behavioral Health Provider 01/04/21 07/02/22 Marisel Armando MD [address] [place] [address] [id number] Gastroenterology 02/05/21 Marisel Armando MD [address] [place] [address] Assigned Gastroenterology Provider 03/08/21 12/24/22 Inderjit Ugalde MD [address] [place] [address] Assigned Surgical Provider 02/15/21 08/20/22 Wesley Barrett MD [address] [facility] 96 [place] [address] Assigned Neuroscience Provider 05/10/21 Charles Jaramillo PA-C [address] [address] Assigned Musculoskeletal Provider 04/26/21 10/15/22 Miranda Queen [facility] [address] [place] [address] Assigned MTM Pharmacist 12/05/21 03/26/22 [place] [address] [place] [address] Assigned PCP 01/23/22 05/14/22 Miranda Queen [facility] [address] [place] [address] Assigned MTM Pharmacist 04/07/22 05/14/22 [place] [address] [place] [address] Assigned PCP 05/15/22 Katiana eRad MD [address] [facility] [address] [place] [address] Assigned Endocrinology Provider 06/19/22 Meme Singleton[place] PhD [address] [place] [address] Assigned Behavioral Health Provider 07/03/22 12/31/22 Deena Garza, CONSERVATION TECHNICIAN CRITICAL CARE REGISTERED NURSE [address] [place] [address] Assigned Pain Medication Provider 07/19/22 10/29/22 [place] [address] [address] [place] [address] Nurse Practitioner Nurse Practitioner 10/18/22 Elham Stack, [facility] [address] [place], [place] [address] Pharmacist Pharmacist 10/19/22 Emerita Potter, [facility] Clinic Taxi Cab Driver Lead Cargo Mover - Clinical 10/29/22 11/02/22 [place] [address] [place] [address] Assigned Pain Medication Provider 10/30/22 12/03/22 Michelle Guzman DPM, Podiatry/Foot and Ankle Surgery [address] [place] [address] Assigned Musculoskeletal Provider 10/16/22 04/08/23 [place] [address] [place] [address] Assigned Pain Medication Provider 12/04/22 04/01/23 [place] [address] [place] [address] Nurse Practitioner Nurse Practitioner 01/17/23 01/17/23 Aubrey Jones MD [address] [place] [address] Cardiovascular Disease 03/28/23 Blanquita Morales Sports Announcer Diabetes Education 04/25/23 Aubrey Jones MD [address] [place] [address] Assigned Heart and Vascular Provider 05/07/23 documented as of this encounter
--- OUTSIDE RECORDS SUMMARY | 2023-08-03 12:50 | XMS_ITS | Encounter Summary ---
Author Name Unknown Organization [facility] Address [address] [place] [address]. [place] [address] Care Team Providers Care Resident Services Coordinator Name Role Phone Len Adhikari MD Primary Care Provider Jovany Gonzalez MD Unavailable CrissyStaci jeong ASSISTANT CHIEF TRAIN DISPATCHER Unavailable [phone] Len Adhikari MD Unavailable Reanna Smith RD Unavailable [phone] Katiana Read MD Unavailable [phone] Roshni Nascimento RN Unavailable Unavailable Kiet Swain MD Unavailable [phone] Winsome Pike APRN SETTER MACHINE Unavailable [phone] Tori HinesSW Unavailable Miranda Queen [facility] Unavailable Unavailable Winsome Pike APRN SETTER MACHINE Unavailable [phone] Marisel Armando MD Unavailable Marisel Armando MD Unavailable Inderjit Ugalde MD Unavailable [phone] Wesley Barrett MD Unavailable [phone] Charles Jaramillo PA-C Unavailable +[phone] Miranda Queen [facility] Unavailable Unavailable Leeann Rinaldi MD Unavailable Miranda Queen [facility] Unavailable Unavailable Dyan Fuentes MD Primary Care Provider +[phone] Dyan Fuentes MD Unavailable +[phone] Katiana Read MD Unavailable +[phone] Meme Singleton PhD Unavailable +[phone] Deena Garza DIRECTOR CLINICAL OPERATIONS SETTER MACHINE Unavailable +[phone] Mary Del Cid ASSISTANT CHIEF TRAIN DISPATCHER Unavailable + [phone] Elham Stack [facility] Unavailable [phone] Abbey Emerita M [facility] Unavailable [phone] Mary Del Cid ASSISTANT CHIEF TRAIN DISPATCHER Unavailable + [phone] Michelle Guzman DPM, Podiatry /Foot and Ankle Surgery Unavailable Dyan Fuentes MD Unavailable +[phone] Mary Del Cid NP Unavailable + [phone] Aubrey Jones MD Unavailable [phone] Blanquita Morales Unavailable Unavailable Aubrey Jones MD Unavailable [phone] Encounter Details Date Type Department Care Team (Late st Contact Info) Description 07/27/2021 [facility] [address] [facility] [address] [place] [address] Katiana Read MD [address] [place] [address] Social History Tobacco Use Types [...] often do you attend chur ch or sabianism services? Never 09/20/2020 Do you belong to [...] Answer Date Recorded PHQ-2 Score 2 02/02/2021 [facility] Questionnaire Answer Date [...] slept in a mcfp (including now)? No 09/20/2020 Education Answer Date [...] COVID-19? No / Unsure 07/17/2021 4:05 PM PLACEMENT SECRETARY documented as of this encounter Plan of Treatment Upcoming Encounters Date Type Department Care Team (Late st Contact Info) Description 08/18/2023 3:00 PM PLACEMENT SECRETARY Office Visit [facility] [address] [place] [address] Katiana Read MD [address] [place] [address] documented as of this encounter Visit Diagnoses [...] documented as of this encounter Care Teams Resident Services Coordinator Relationship Specialty Start Date End Date Len Adhikari MD PCP - General Family Practice 11/08/16 05/09/22 [place] [address] [place] [address] PCP - General Family Medicine 05/18/22 Jovany Gonzalez MD [facility] [address] [facility] [address] [place], [place] [address] Orthopedics 02/15/17 Staci Woodward, ASSISTANT CHIEF TRAIN DISPATCHER [facility] [address] [place], [place] [address] Nurse Practitioner Nurse Practitioner Psych/Mental Health 05/10/17 [place] [address] [facility] [place] [address] Assigned PCP 11/14/16 01/22/[address] [facility] [address] [place] [address] Case Filler Dietitian, Registered 07/25/19 Katiana Read MD [address] [address] Assigned Endocrinology Provider 05/02/20 08/01/21 Roshni Nascimento, RN Personal Advocate & Liaison (PAL) Family Medicine 08/18/20 Kiet Swain MD [address] [place] [address] 737404 Referring Physician Psychiatry 09/19/20 Winsome Pike APRN SETTER MACHINE [address] [place] [address] 280244 Nurse Practitioner Psychiatry 09/19/20 Tori Hines [facility] [address] [place] [address] [phone] Travel Ticketing Reviewer Travel Ticketing Reviewer - Clinical 09/19/20 [place] [address] [place] [address] Pharmacist Pharmacist 11/12/20 Winsome Pike APRN SETTER MACHINE [address] [place] [address] Assigned Behavioral Health Provider 01/04/21 07/02/22 Marisel Armando MD [address] [place] [address] Gastroenterology 02/05/21 Marisel Armando MD [address] [place] [address] Assigned Gastroenterology Provider 03/08/21 12/24/22 Inderjit Ugalde MD [address] [facility] 300 [place] [address] Assigned Surgical Provider 02/15/21 08/20/22 Wesley Barrett MD [address] [facility] 96 [place] [address] Assigned Neuroscience Provider 05/10/21 Charles Jaramillo PA-C [address] [facility] 450 [place] [address] Assigned Musculoskeletal Provider 04/26/21 10/15/22 [facility] [address] [place] [address] Assigned MTM Pharmacist 12/05/21 03/26/22 [place] [address] [place] [address] Assigned PCP 01/23/22 05/14/22 Miranda Queen [facility] [address] [place] [address] Assigned MTM Pharmacist 04/07/22 05/14/22 [place] [address] [place] [address] Assigned PCP 05/15/22 Katiana Read MD [address] [place] [address] Assigned Endocrinology Provider 06/19/22 [place] [address] [place] [address] Assigned Behavioral Health Provider 07/03/22 12/31/22 Deena Garza APRN SETTER MACHINE [address] [place] [place] [address] Assigned Pain Medication Provider 07/19/22 10/29/22 Mary Del Cid, RAFAEL [address] [place] [place] [address] Nurse Practitioner Nurse Practitioner 10/18/22 Elham Stack, [facility] [address] [facility] [place], [place] [address] Pharmacist Pharmacist 10/19/22 Emerita Potter, [facility] Clinic Air Support Control Officer Travel Ticketing Reviewer - Clinical 10/29/22 11/02/22 Mary Del Cid, RAFAEL [address] [place] [place] [address] Assigned Pain Medication Provider 10/30/22 12/03/22 Michelle Guzman, DPM, Podiatry/Foot and Ankle Surgery [address] [place] [address] Assigned Musculoskeletal Provider 10/16/22 04/08/23 [place] [address] [place] [address] Assigned Pain Medication Provider 12/04/22 04/01/23 [place] [address] [place] [address] Nurse Practitioner Nurse Practitioner 01/17/23 01/17/23 Aubrey Jones MD [address] [place] [address] Cardiovascular Disease 03/28/23 Blanquita Morales Case Filler Diabetes Education 04/25/23 Aubrey Jones MD [address] [place] [address] Assigned Heart and Vascular Provider 05/07/23 documented as of this encounter
--- OUTSIDE RECORDS SUMMARY | 2023-08-03 12:50 | XMS_ITS | Encounter Summary ---
Author Name Unknown Organization [facility] Address [address] [place] [address]. [place] [address] Care Team Providers Care Manager Cancer Name Role Phone Len Adhikari MD Primary Care Provider Jovany Gonzalez MD Unavailable CrissyStaci jeong CHOPPING MACHINE OPERATOR Unavailable [phone] Len Adhikari MD Unavailable Reanna Smith RD Unavailable Katiana Read MD Unavailable [phone] Roshni Nascimento RN Unavailable Unavailable Kiet Swain MD Unavailable [phone] Winsome Pike APRN ASSISTANT TO THE PRESIDENT Unavailable [phone] Tori HinesSW Unavailable Miranda Queen [facility] Unavailable Unavailable Winsome Pike APRN ASSISTANT TO THE PRESIDENT Unavailable [phone] Marisel Armando MD Unavailable Marisel Armando MD Unavailable Inderjit Ugalde MD Unavailable [phone] Wesley Barrett MD Unavailable [phone] Charles Jaramillo PA-C Unavailable +[phone] Miranda Queen [facility] Unavailable Unavailable Leeann Rinaldi MD Unavailable Miranda Queen [facility] Unavailable Unavailable Dyan Fuentes MD Primary Care Provider [phone] Dyan Fuentes MD Unavailable + [phone] Katiana Read MD Unavailable [phone] Meme Singleton PhD Unavailable +[phone] Deena Garza APRN ASSISTANT TO THE PRESIDENT Unavailable [phone] Mary Del Cid CHOPPING MACHINE OPERATOR Unavailable + [phone] Elham Stack [facility] Unavailable [phone] Emerita Potter [facility] Unavailable [phone] Mary Del Cid CHOPPING MACHINE OPERATOR Unavailable + [phone] Michelle Guzman DPM, Podiatry /Foot and Ankle Surgery Unavailable Dyan Fuentes MD Unavailable [phone] Reason for Visit * Reason Onset Date Comments Patient/info Update 06/08/2021 Encounter Details Date Type Department Care Team (Late st Contact Info) Description 06/08/2021 [facility] [address] [place], [place] [address] Deena Garza, [place] [id number] [place] [address] Patient/info Update Social History Tobacco Use Types [...] How often do you attend chur or rastafarian services? 1 to 4 times [...] Answer Date Recorded PHQ-2 Score 2 11/25/2022 [facility] - Occupational Stress [...] Janine Argueta RN - 06/09/2021 10:30 AM FLAP LINING BINDER Noted by nursing, will keep encounter open at this time for pt communication and nursing chart review. Janine Raymundo RN Reflesher [facility] LINING BINDER * Telephone Encounter - Lenka Healy - 06/08/2021 4:59 PM CST Pt calling to inform care team she is going to the ED due to complications from her neck surgery. If you need to reach her she will have her tablet and can send MobileAccess Networkst messages. Lenka Baker [place] Farmer [facility] Management LINING BINDER documented in this encounter Plan of Treatment Upcoming Encounters Date Type Department Care Team (Late st Contact Info) Description 08/18/2023 3:00 PM FLAP LINING BINDER Office Visit [facility] [address] [place] [address] Katiana Read MD [address] [place] [address] documented as of this encounter Visit Diagnoses [...] as of this encounter Care Teams Manager Cancer Relationship Specialty Start Date End Date Len Adhikari MD PCP - General Family Practice 11/08/16 05/09/22 [place] [address] [place] [address] PCP - General Family Medicine 05/18/22 Jovany Gonzalez MD [facility] [address] [facility] [address] [place] [address] Orthopedics 02/15/17 Staci Woodward NP [facility] [address] [place], [place] [address] Nurse Practitioner Nurse Practitioner Psych/Mental Health 05/10/17 [place] [address] [place] [address] Assigned PCP 11/14/16 01/22/[address] [facility] [address] [place] [address] Butcher Chicken [employer] Fish Dietitian, Registered 07/25/19 Katiana Read MD [address] [place] [address] [id number] Assigned Endocrinology Provider 05/02/20 08/01/21 Roshni Nascimento, ZITA Personal Advocate & Liaison (PAL) Family Medicine 08/18/20 Kiet Swain MD [address] [place], [place] [address] [place], [place] [address] Referring Physician Psychiatry 09/19/20 Winsome Pike APRN ASSISTANT TO THE PRESIDENT [address] [place] [address] 645114 Nurse Practitioner Psychiatry 09/19/20 Tori Hines, [facility] [address] [place] [address] Heating And Ventilating Drafter Heating And Ventilating Drafter - Clinical 09/19/20 Miranda Queen, [facility] [address] [place] [address] Pharmacist Pharmacist 11/12/20 Winsome Pike APRN ASSISTANT TO THE PRESIDENT [address] [address] Assigned Behavioral Health Provider 01/04/21 07/02/22 Marisel Armando MD [address] [place] [address] 705925 Gastroenterology 02/05/21 Marisel Armando MD [address] [place] [address] 109845 Assigned Gastroenterology Provider 03/08/21 12/24/22 Inderjit Ugalde MD [address] [facility] 300 [place], [place] [address] Assigned Surgical Provider 02/15/21 08/20/22 Wesley Barrett MD [address] [place] [address] 96 [place], [place] [address] Assigned Neuroscience Provider 05/10/21 Charles Jaramillo PA-C [address] [address] Assigned Musculoskeletal Provider 04/26/21 10/15/22 Miranda Queen [facility] [address] [place] [address] Assigned MTM Pharmacist 12/05/21 03/26/22 [place] [address] [place] [address] Assigned PCP 01/23/22 05/14/22 Miranda Queen [facility] [address] [place] [address] Assigned MTM Pharmacist 04/07/22 05/14/22 [place] [address] [place] [address] Assigned PCP 05/15/22 Katiana Read MD [address] [address] Assigned Endocrinology Provider 06/19/22 [place] [address] [place] [address] Assigned Behavioral Health Provider 07/03/22 12/31/22 Deena Garza APRN ASSISTANT TO THE PRESIDENT [address] [place] [address] Assigned Pain Medication Provider 07/19/22 10/29/22 Mary Del Cid, RAFAEL [address] [place] [place] [address] Nurse Practitioner Nurse Practitioner 10/18/22 Elham Stack, [facility] 3033 [place] [address] Pharmacist Pharmacist 10/19/22 Emerita Potter, [facility] Clinic Reflesher Heating And Ventilating Drafter - Clinical 10/29/22 11/02/22 Mary Del Cid, RAFAEL [address] [place] [address] Assigned Pain Medication Provider 10/30/22 12/03/22 Michelle Guzman, ALDOM, Podiatry/Foot and Ankle Surgery [address] [place] [address] Assigned Musculoskeletal Provider 10/16/22 04/08/23 [place] [address] [place] [address] Assigned Pain Medication Provider 12/04/22 04/01/23 documented as of this encounter
--- OUTSIDE RECORDS SUMMARY | 2023-08-03 12:50 | XMS_ITS | Encounter Summary ---
Author Name Unknown Organization [facility] Address [address] [place] [address]. [place] [address] Care Team Providers Care Learning Officer Name Role Phone Len Adhikari MD Primary Care Provider Jovany Gonzalez MD Unavailable CrissyStaci jeong VERIFY REP Unavailable [phone] Len Adhikari MD Unavailable [phone] Unavailable Katiana Read MD Unavailable [phone] Roshni Nascimento RN Unavailable Unavailable Kiet Swain MD Unavailable [phone] Winsome Pike APRN QUALIFICATIONS EXAMINER Unavailable [phone] Tori HinesSW Unavailable Miranda Queen [facility] Unavailable Unavailable Winsome Pike APRN QUALIFICATIONS EXAMINER Unavailable [phone] Marisel Armando MD Unavailable Marisel Armando MD Unavailable Inderjit Ugalde MD Unavailable [phone] Wesley Barrett MD Unavailable [phone] Charles Jaramillo PA-C Unavailable +[phone] Miranda Queen [facility] Unavailable Unavailable Leeann Rinaldi MD Unavailable Miranda Queen [facility] Unavailable Unavailable Dyan Fuentes MD Primary Care Provider [phone] Dyan Fuentes MD Unavailable + [phone] Katiana Read MD Unavailable +[phone] Meme Singleton PhD Unavailable + Deena Garza MANAGER DIVERSITY QUALIFICATIONS EXAMINER Unavailable +[phone] Mary Del Cid VERIFY REP Unavailable + [phone] Elham Stack [facility] Unavailable [phone] Emerita Potter [facility] Unavailable +[phone] Mary Del Cid VERIFY REP Unavailable + [phone] Michelle Guzman DPM, Podiatry /Foot and Ankle Surgery Unavailable Dyan Fuentes MD Unavailable [phone] Mary Del Cid NP Unavailable +[phone] Aubrey Jones MD Unavailable [phone] Blanquita Morales Unavailable Unavailable Aubrey Jones MD Unavailable + [phone] Encounter Details Date Type Department Care Team (Late st [facility]) Description 07/01/2021 [facility] [address] [place] [address] Kendal Watters Social History Tobacco Use [...] often do you attend chur ch or temple services? Never 09/20/2020 Do you belong to any clubs o r organizations such as sikhism groups, unions, fraternal or athletic groups, or [...] Answer Date Recorded PHQ-2 Score 2 02/02/2021 [facility] of Occupat ional [...] COVID-19? No / Unsure 07/03/2021 3:22 PM MEDIA CENTER ASSISTANT documented as of this encounter Plan of Treatment Upcoming Encounters Date Type Department Care Team (Late st Contact Info) Description 08/18/2023 3:00 PM MEDIA CENTER ASSISTANT Office Visit [facility] [address] [place] [address] Katiana Read MD [address] [place] [address] documented as of this encounter Visit Diagnoses [...] documented as of this encounter Care Teams Learning Officer Relationship Specialty Start Date End Date Len Adhikari MD PCP - General Family Practice 11/08/16 05/09/22 [place] [address] [place] [address] PCP - General Family Medicine 05/18/22 Jovany Gonzalez MD [facility] [address] [facility] 605 [place] [address] Orthopedics 02/15/17 Staci Woodward VERIFY REP [place] [address] [address] [place], [place] [address] Nurse Practitioner Nurse Practitioner Psych/Mental Health 05/10/17 [place] [address] [facility] [place] [address] Assigned PCP 11/14/16 01/22/[address] [facility] [address] [place] [address] Child Care Lead Teacher Dietitian, Registered 07/25/19 Katiana Read MD [address] [address] Assigned Endocrinology Provider 05/02/20 08/01/21 Roshni Nascimento RN Personal Advocate & Liaison (PAL) Family Medicine 08/18/20 Kiet Swain MD [address] [place] [address] [address] [place] [address] Referring Physician Psychiatry 09/19/20 Winsome Pike APRN QUALIFICATIONS EXAMINER [address] [place] [address] Nurse Practitioner Psychiatry 09/19/20 Tori Hines [facility] [address] [place] [address] Grid Maker Grid Maker - Clinical 09/19/20 Miranda Queen [facility] [address] [place] [address] Pharmacist Pharmacist 11/12/20 Winsome Pike APRN QUALIFICATIONS EXAMINER [address] [place] [address] Assigned Behavioral Health Provider 01/04/21 07/02/22 Marisel Armando MD [address] [place] [address] Gastroenterology 02/05/21 Marisel Armando MD [address] [place] [address] Assigned Gastroenterology Provider 03/08/21 12/24/22 Inderjit Ugalde MD [address] [place] [address] Assigned Surgical Provider 02/15/21 08/20/22 Wesley Barrett MD [address] [facility] 96 [place] [address] Assigned Neuroscience Provider 05/10/21 Charles Jaramillo PA-C [address] [facility] 450 [place] [address] Assigned Musculoskeletal Provider 04/26/21 10/15/22 [facility] [address] [place] [address] Assigned MTM Pharmacist 12/05/21 03/26/22 [place] [address] [place] [address] Assigned PCP 01/23/22 05/14/22 Miranda Queen [facility] [address] [place] [address] Assigned MTM Pharmacist 04/07/22 05/14/22 [place] [address] [place] [address] Assigned PCP 05/15/22 Katiana Read MD [address] [address] [place] [address] Assigned Endocrinology Provider 06/19/22 [place] [address] [place] [address] Assigned Behavioral Health Provider 07/03/22 12/31/22 Deena Garza APRN CNP [address] [place] [address] Assigned Pain Medication Provider 07/19/22 10/29/22 [place] [address] [address] [place] [address] Nurse Practitioner Nurse Practitioner 10/18/22 Elham Stack, [facility] [address] [place], [place] [address] Pharmacist Pharmacist 10/19/22 Emerita Potter, [facility] Clinic Wallpaper Embosser Helper Grid Maker - Clinical 10/29/22 11/02/22 [place] [address] [place] [place] [address] Assigned Pain Medication Provider 10/30/22 12/03/22 Michelle Guzman DPM, Podiatry/Foot and Ankle Surgery [address] [place] [address] Assigned Musculoskeletal Provider 10/16/22 04/08/23 [place] [address] [place] [address] Assigned Pain Medication Provider 12/04/22 04/01/23 [place] [address] [place] [place] [address] Nurse Practitioner Nurse Practitioner 01/17/23 01/17/23 Aubrey Jones MD [address] [place] [address] Cardiovascular Disease 03/28/23 Blanquita Morales Child Care Lead Teacher Diabetes Education 04/25/23 Aubrey Jones MD [address] [place] [address] Assigned Heart and Vascular Provider 05/07/23 documented as of this encounter
--- OUTSIDE RECORDS SUMMARY | 2023-08-03 12:50 | XMS_ITS | Encounter Summary ---
Author Name Unknown Organization [facility] Address [address] [place] [id number] Care Team Providers Care Spray Gun Operator Name Role Phone Len Adhikari MD Primary Care Provider Jovany Gonzalez MD Unavailable CrissyStaci jeong NP Unavailable [phone] Len Adhikari MD Unavailable Reanna Smith RD Unavailable Roshni Nascimento RN Unavailable Unavailable Kiet Swain MD Unavailable [phone] Winsome Pike APRN HOT BALLER Unavailable [phone] Tori HinesSW Unavailable Miranda Queen [facility] Unavailable Unavailable Winsome Pike APRN HOT BALLER Unavailable [phone] Marisel Armando MD Unavailable Marisel Armando MD Unavailable Inderjit Ugalde MD Unavailable [phone] Wesley Barrett MD Unavailable Charles Jaramillo PA-C Unavailable +[phone] Miranda Queen [facility] Unavailable Unavailable Leeann Rinaldi MD Unavailable Miranda Queen [facility] Unavailable Unavailable Dyan Fuentes MD Primary Care Provider [phone] Dyan Fuentes MD Unavailable + [phone] Katiana Read MD Unavailable +[phone] Meme Singleton PhD Unavailable +[phone] Deena Garza SCALE TESTER HOT BALLER Unavailable +[phone] Mary Del Cid CULINARY ARTIST Unavailable + [phone] StackElham [facility] Unavailable +[phone] Emerita Potter [facility] Unavailable [phone] Mary Del Cid NP Unavailable + [phone] Michelle Guzman DPM, Podiatry /Foot and Ankle Surgery Unavailable Dyan Fuentes MD Unavailable + [phone] Mary Del Cid NP Unavailable + [phone] Aubrey Jones MD Unavailable + [phone] Blanquita Morales Unavailable Unavailable Aubrey Jones MD Unavailable + [phone] Encounter Details Date Type Department Care Team (Late st Contact Info) Description 08/26/2021 [facility] [address] [address] Formerly [facility] Social History Tobacco Use Types Packs/Day Years [...] often do you attend chur ch or uatsdin services? Never 09/20/2020 Do you belong to [...] Answer Date Recorded PHQ-2 Score 2 02/02/2021 [facility] Occupat ional [facility] - Occupational Stress Questionnaire Answer [...] COVID-19? No / Unsure 08/12/2021 1:26 PM JIGGER CROWN POUNCING MACHINE OPERATOR documented as of this encounter Plan of Treatment Upcoming Encounters Date Type Department Care Team (Late st Contact Info) Description 08/18/2023 3:00 PM JIGGER CROWN POUNCING MACHINE OPERATOR Office Visit [facility] [address] [facility] [address] [place] [address] Katiana Read MD [address] [place] [address] documented as of this encounter Visit Diagnoses [...] of this encounter Care Teams Spray Gun Operator Relationship Specialty Start Date End Date Len Adhikari MD PCP - General Family Practice 11/08/16 05/09/22 [place] [address] [place] [address] PCP - General Family Medicine 05/18/22 Jovany Gonzalez MD [facility] [address] [facility] [address] [place] [address] Orthopedics 02/15/17 Staci Woodward CULINARY ARTIST [place] [address] [place] [address] Nurse Practitioner Nurse Practitioner Psych/Mental Health 05/10/17 [place] [address] [facility] [place] [address] Assigned PCP 11/14/16 01/22/[address] [place] [address] [place] [address] Windlasser Dietitian, Registered 07/25/19 Roshni Nascimento, RN Personal Advocate & Liaison (PAL) Family Medicine 08/18/20 Kiet Swain MD [address] [facility] [address] [place], [place] 921284 Referring Physician Psychiatry 09/19/20 Winsome Pike APRN HOT BALLER [address] [place] [address] 932994 Nurse Practitioner Psychiatry 09/19/20 Tori Hines, [facility] [place], [place] 177584 Measurement Technician Measurement Technician - Clinical 09/19/20 Miranda Queen [facility] [address] [place] [address] Pharmacist Pharmacist 11/12/20 Winsome Pike APRN HOT BALLER [address] [place] [address] 034594 Assigned Behavioral Health Provider 01/04/21 07/02/22 Marisel Armando MD [address] [place] [address] 596165 Gastroenterology 02/05/21 Marisel Armando MD [address] [place] [address] Assigned Gastroenterology Provider 03/08/21 12/24/22 Inderjit Ugalde MD [address] [address] Assigned Surgical Provider 02/15/21 08/20/22 Wesley Barrett MD [address] [place] [address] Assigned Neuroscience Provider 05/10/21 Charles Jaramillo PA-C [address] [facility] 450 [place] [address] Assigned Musculoskeletal Provider 04/26/21 10/15/22 Miranda Queen [facility] [address] [place] [address] Assigned MTM Pharmacist 12/05/21 03/26/22 [place] [address] [place] [address] Assigned PCP 01/23/22 05/14/22 Miranda Queen [facility] [address] [place] [address] Assigned MTM Pharmacist 04/07/22 05/14/22 [place] [address] [place] [address] Assigned PCP 05/15/22 Katiana Read MD [address] [place] [address] 200 [place] [address] Assigned Endocrinology Provider 06/19/22 Meme [place] PhD [address] [place] [address] Assigned Behavioral Health Provider 07/03/22 12/31/22 Deena Garza APRN HOT BALLER [address] [place] [address] Assigned Pain Medication Provider 07/19/22 10/29/22 [place] [address] [address] [address] Nurse Practitioner Nurse Practitioner 10/18/22 Elham Stack, [facility] [address] [place] [address] Pharmacist Pharmacist 10/19/22 Emerita Potter, [facility] Clinic Soft Work Cigar Machine Operator Measurement Technician - Clinical 10/29/22 11/02/22 [place] [address] [address] [place] [address] Assigned Pain Medication Provider 10/30/22 12/03/22 Michelle Guzman, DPM, Podiatry/Foot and Ankle Surgery [address] [place] [address] Assigned Musculoskeletal Provider 10/16/22 04/08/23 [place] [address] [place] [address] Assigned Pain Medication Provider 12/04/22 04/01/23 [place] [address] [address] [place] [address] Nurse Practitioner Nurse Practitioner 01/17/23 01/17/23 Aubrey Jones MD [address] [place] [address] Cardiovascular Disease 03/28/23 Blanquita Morales Windlasser Diabetes Education 04/25/23 Aubrey Jones MD [address] [place] 047345 Assigned Heart and Vascular Provider 05/07/23 documented as of this encounter
--- OUTSIDE RECORDS SUMMARY | 2023-08-03 12:50 | XMS_ITS | Encounter Summary ---
Author Name Unknown Organization [facility] Address [address] [place] [address]. [place] [address] Care Team Providers Care Ham Stripper Name Role Phone Len Adhikari MD Primary Care Provider Jovany Gonzalez MD Unavailable CrissyStaci jeong MANAGER MATH Unavailable [phone] Len Adhikari MD Unavailable Reanna Smith RD Unavailable Katiana Read MD Unavailable [phone] Roshni Nasicmento RN Unavailable Unavailable Kiet Swain MD Unavailable [phone] Winsome Pike APRN SENSOR OPERATOR Unavailable [phone] Tori HinesSW Unavailable Miranda Queen [facility] Unavailable Unavailable Winsome Pike APRN SENSOR OPERATOR Unavailable [phone] Marisel Armando MD Unavailable Marisel Armando MD Unavailable Inderjit Ugalde MD Unavailable [phone] Wesley Barrett MD Unavailable [phone] Charles Jaramillo PA-C Unavailable +[phone] Miranda Queen [facility] Unavailable Unavailable Leeann Rinaldi MD Unavailable Miranda Queen [facility] Unavailable Unavailable Dyan Fuentes MD Primary Care Provider [phone] Dyan Fuentes MD Unavailable +[phone] Katiana Read MD Unavailable [phone] Meme Singleton PhD Unavailable +[phone] Deena Garza DONOR FLOOR TECHNICIAN SENSOR OPERATOR Unavailable [phone] Mary Del Cid MANAGER MATH Unavailable + [phone] Elham Stack [facility] Unavailable [phone] [address] Emerita Alisha [facility] Unavailable [phone] Mary Del Cid MANAGER MATH Unavailable + [phone] Michelle Guzman DPM, Podiatry /Foot and Ankle Surgery Unavailable Dyan Fuentes MD Unavailable [phone] Mary Del Cid NP Unavailable + [phone] Aubrey Jones MD Unavailable [phone] Blanquita Morales Unavailable Unavailable Aubrey Jones MD Unavailable [phone] Reason for Visit * Reason Comments Medication Refill Encounter Details Date Type Department Care Team (Late st Contact Info) Description 06/21/[address] [facility] [address] [place] [address] Katiana Read MD [address] [place] [address] Medication Refill Social History Tobacco [...] you attend chur ch or spiritism services? Never 09/20/2020 Do you belong to [...] Answer Date Recorded PHQ-2 Score 2 02/02/2021 [facility] - [facility] Questionnaire Answer Date Recorded [...] COVID-19? No / Unsure 06/18/2021 7:29 PM HUMAN RESOURCES SUPERVISOR documented as of this encounter Miscellaneous Notes * Telephone Encounter - Torri Benites RN - 06/26/2021 9:20 AM HUMAN RESOURCES SUPERVISOR Left message with to have patient call back to inform her that she will need labs a week prior to follow up. Lab orders placed. N RESOURCES SUPERVISOR * Telephone Encounter - AvelUma - 06/25/2021 4:14 PM CST Appointment scheduled for 08.31.2021. If patients need labs before the appointment please let her know and she will plan to have labs done with her PCP's office N RESOURCES SUPERVISOR * Telephone Encounter - Davina Pablo - 06/22/2021 12:55 PM CST 06/22 - lvm x 1 N RESOURCES SUPERVISOR * Telephone Encounter - Torri Benites RN - 06/22/2021 11:45 AM HUMAN RESOURCES SUPERVISOR Please call patient and set up follow up appointment. Short supply sent. Patient needs to be seen for any further refills. N RESOURCES SUPERVISOR documented in this encounter Plan of Treatment Upcoming Encounters Date Type Department Care Team (Late st Contact Info) Description 08/18/2023 3:00 PM HUMAN RESOURCES SUPERVISOR Office Visit [facility] [address] [facility] [address] [place] [address] Katiana Read MD [address] [facility] 200 [place] [address] documented as of this encounter Results * (ABNORMAL) T3, Free (06/12/2022 4:28 PM HUMAN RESOURCES SUPERVISOR) T3 Free 0.4(L) 2.0 - 4.4 pg/mL 06/13/2022 4:17 PM HUMAN RESOURCES SUPERVISOR [facility] Blood STRUCTURE OF RIGHT UPPER LIMB / Unknown Venipuncture / Unknown 06/12/2022 4:28 PM HUMAN RESOURCES SUPERVISOR 06/12/2022 4:29 PM HUMAN RESOURCES SUPERVISOR Katiana Read MD LAB - BLOOD ORDER LENA [facility] [place] [facility] [address] [facility], [address] [place] [address], [facility] [phone] * (ABNORMAL) T4, free (06/12/2022 4:28 PM HUMAN RESOURCES SUPERVISOR) Pathologist [facility] Free T4 <0.10(L) 0.90 - 1.70 ng/dL 06/13/2022 4:16 PM HUMAN RESOURCES SUPERVISOR [facility] Blood STRUCTURE OF RIGHT UPPER LIMB / Unknown Venipuncture / Unknown 06/12/2022 4:28 PM HUMAN RESOURCES SUPERVISOR 06/12/2022 4:29 PM HUMAN RESOURCES SUPERVISOR Katiana Read MD LAB - BLOOD ORDER LENA [facility] [place] [facility] [address] [facility], [address] [place] [address], [facility] [phone] * (ABNORMAL) TSH (06/12/2022 4:28 PM HUMAN RESOURCES SUPERVISOR) [facility] TSH 290.00(H) 0.30 - 4.20 uIU/mL 06/13/2022 4:25 PM HUMAN RESOURCES SUPERVISOR [facility] Blood STRUCTURE OF RIGHT UPPER LIMB / Unknown Venipuncture / Unknown 06/12/2022 4:28 PM HUMAN RESOURCES SUPERVISOR 06/12/2022 4:29 PM HUMAN RESOURCES SUPERVISOR Katiana Read MD LAB - BLOOD ORDER LENA [facility] Lab [address] [facility], [address] [place] [address], [facility] [phone] * (ABNORMAL) Hemoglobin A1c (06/12/2022 4:28 PM HUMAN RESOURCES SUPERVISOR) Pathologist [facility] Hemoglobin A1C 5.9(H) 0.0 - 5.6 % 06/12/2022 5:08 PM HUMAN RESOURCES SUPERVISOR [facility] Comment: Normal <5.7% Prediabetes 5.7-6.4% ?? Diabetes 6.5% or higher Note: Adopted from ADA consensus guidelines. Blood STRUCTURE OF RIGHT UPPER LIMB / Unknown Venipuncture / Unknown 06/12/2022 4:28 PM HUMAN RESOURCES SUPERVISOR 06/12/2022 4:29 PM HUMAN RESOURCES SUPERVISOR Katiana Read MD LAB - BLOOD ORDER [facility] [address] [facility] [facility] (no room number, 1st floor of clinic) [place] [address], [facility] [phone] documented in this encounter Visit Diagnoses Diagnosis [...] documented as of this encounter Care Teams Ham Stripper Relationship Specialty Start Date End Date Len Adhikari MD PCP - General Family Practice 11/08/16 05/09/22 [place] [address] [place] [address] PCP - General Family Medicine 05/18/22 Jovany Gonzalez MD [facility] [address] [facility] [address] [place] [address] Orthopedics 02/15/17 Staci Woodward MANAGER MATH [facility] [address] [place], [place] 433037 Nurse Practitioner Nurse Practitioner Psych/Mental Health 05/10/17 [place] [address] [place] [address] Assigned PCP 11/14/16 01/22/[address] [facility] [address] [place] [address] Galvanizing Pot Runner Dietitian, Registered 07/25/19 Katiana Read MD [address] [place] [address] 200 [place], [place] 956540 Assigned Endocrinology Provider 05/02/20 08/01/21 Roshni Nascimento, RN Personal Advocate & Liaison (PAL) Family Medicine 08/18/20 Kiet Swain MD [address] [place], [place] [address] [place], [place] [address] Referring Physician Psychiatry 09/19/20 Winsome Pike APRN SENSOR OPERATOR [address] [place] [address] 034284 Nurse Practitioner Psychiatry 09/19/20 Tori Hines, [facility] [place] [address] Assistant Product Manager Assistant Product Manager - Clinical 09/19/20 Miranda Queen, [facility] [address] [place] [address] Pharmacist Pharmacist 11/12/20 Winsome Pike APRN SENSOR OPERATOR [address] 686114 Assigned Behavioral Health Provider 01/04/21 07/02/22 Marisel Armando MD [address] [place] [address] 346365 Gastroenterology 02/05/21 Marisel Armando MD [address] [place] [address] 804015 Assigned Gastroenterology Provider 03/08/21 12/24/22 Inderjit Ugalde MD [address] [facility] [address] [place], [place] [address] Assigned Surgical Provider 02/15/21 08/20/22 Wesley Barrett MD [address] [facility] 96 [place], [place] 335055 Assigned Neuroscience Provider 05/10/21 Charles Jaramillo PA-C [address] [address] Assigned Musculoskeletal Provider 04/26/21 10/15/22 [place] [address] [place] [address] Assigned MTM Pharmacist 12/05/21 03/26/22 [place] [address] [place] [address] Assigned PCP 01/23/22 05/14/22 Miranda Queen [facility] [address] [place] [address] Assigned MTM Pharmacist 04/07/22 05/14/22 [place] [address] [place] [address] Assigned PCP 05/15/22 Katiana Read MD [address] [place] [address] Assigned Endocrinology Provider 06/19/22 [place] [address] [place] [address] Assigned Behavioral Health Provider 07/03/22 12/31/22 Deena Garza APRN SENSOR OPERATOR [address] [place] [address] Assigned Pain Medication Provider 07/19/22 10/29/22 Mary Del Cid, [place] [address] [place] [address] Nurse Practitioner Nurse Practitioner 10/18/22 Elham Stack, [facility] [address] [place] [address] Pharmacist Pharmacist 10/19/22 Emerita Potter, [facility] Clinic Clinical Appeals Rn Assistant Product Manager - Clinical 10/29/22 11/02/22 Mary Del Cid, [place] [address] [place] [address] Assigned Pain Medication Provider 10/30/22 12/03/22 Michelle Guzman, ALDOM, Podiatry/Foot and Ankle Surgery [address] [place] [address] Assigned Musculoskeletal Provider 10/16/22 04/08/23 [place] [address] [place] [address] Assigned Pain Medication Provider 12/04/22 04/01/23 [place] [address] [place] [address] Nurse Practitioner Nurse Practitioner 01/17/23 01/17/23 Aubrey Jones MD [address] [place] [address] Cardiovascular Disease 03/28/23 Blanquita Morales Galvanizing Pot Runner Diabetes Education 04/25/23 Aubrey Jones MD [address] [place] [address] Assigned Heart and Vascular Provider 05/07/23 documented as of this encounter
--- OUTSIDE RECORDS SUMMARY | 2023-08-03 12:50 | XMS_ITS | Encounter Summary ---
Author Name Unknown Organization [facility] Address [address] [place] [address]. [place] [address] Care Team Providers Care Book Sorter Name Role Phone Len Adhikari MD Primary Care Provider [phone] Jovany Gonzalez MD Unavailable CrissyStaci jeong [employer] Unavailable [phone] Len Adhikari MD Unavailable Reanna Smith RD Unavailable Katiana Read MD Unavailable [phone] Roshni Nascimento RN Unavailable Unavailable Kiet Swain MD Unavailable [phone] Winsome Pike APRN REVIEW ENGINEER Unavailable +[phone] Tori HinesSW Unavailable Miranda Queen [facility] Unavailable Unavailable Winsome Pike APRN REVIEW ENGINEER Unavailable [phone] Marisel Armando MD Unavailable Marisel Armando MD Unavailable Inderjit Ugalde MD Unavailable [phone] Wesley Barrett MD Unavailable [phone] Charles Jaramillo PA-C Unavailable +[phone] Miranda Queen [facility] Unavailable Unavailable Leeann Rinaldi MD Unavailable Miranda Queen [facility] Unavailable Unavailable Dyan Fuentes MD Primary Care Provider [phone] Dyan Fuentes MD Unavailable [phone] Katiana Read MD Unavailable [phone] Meme Singleton PhD Unavailable +[phone] Deena Garza APRN REVIEW ENGINEER Unavailable [phone] Mary Del Cid [employer] Unavailable + [phone] Elham Stack [facility] Unavailable [phone] [facility] Unavailable [phone] Mary Del Cid NP Unavailable + [phone] Michelle Guzman DPM, Podiatry /Foot and Ankle Surgery Unavailable Dyan Fuentes MD Unavailable +[phone] Mary Del Cid NP Unavailable + [phone] Aubrey Jones MD Unavailable [phone] Blanquita Morales Unavailable Unavailable Aubrey Jones MD Unavailable [phone] Reason for Visit * Reason Onset Date Comments Patient/info Update 06/12/2021 Encounter Details Date Type Department Care Team (Late st Contact Info) Description 06/12/2021 Telephone [facility] [place] [id number] [place] [address] [address] [place], [place] [address] Deena Garza, VIDHI REVIEW ENGINEER [address] [place] [id number] Patient/info Update Social History Tobacco Use Types [...] you attend chur ch or scientologist services? Never 09/20/2020 Do you [...] Answer Date Recorded PHQ-2 Score 2 02/02/2021 [facility] Answer Date [...] COVID-19? No / Unsure 06/08/2021 6:55 PM ROOFER documented as of this encounter Miscellaneous Notes * Telephone Encounter - Deena Garza APRN CNP - 06/12/2021 3:16 PM ROOFER Thank you for the update, information noted. Nguyen Garza APRN CNP [facility] ER * Telephone Encounter - Janine Argueta RN - 06/12/2021 2:29 PM ROOFER Routing to provider as FYI Call placed [...] when she receives meds. Janine Raymundo RN Occupational Therapy Aide [facility] ER * Telephone Encounter - Dawn Deluna - 06/12/2021 1:38 PM CST Reason for call: Other Patient called regarding (reason for call): Additional comments: Pt was discharged from the hospital and some medications (opiods) she would like to inform the provider of. Phone number to reach patient: Home number on file [phone] (home) Can we leave a detailed message on this number? YES Travel screening: Not Applicable Dawn Brito Terrazzo Installer [facility] documented in this encounter Plan of Treatment Upcoming Encounters Date Type Department Care Team (Late st Contact Info) Description 08/18/2023 3:00 PM ROOFER Office Visit [facility] [address] [place] [address] Katiana Read MD [address] [place] [address] documented as of this encounter Visit Diagnoses [...] documented as of this encounter Care Teams Book Sorter Relationship Specialty Start Date End Date Len Adhikari MD PCP - General Family Practice 11/08/16 05/09/22 [place] [address] [place] [address] PCP - General Family Medicine 05/18/22 Jovany Gonzalez MD [facility] [address] [facility] [address] [place], [place] 0[address] Orthopedics 02/15/17 Staci Woodward [employer] [place] [address] [place], [place] 4[address] Nurse Practitioner Nurse Practitioner Psych/Mental Health 05/10/17 [place] [address] [facility] [address] Assigned PCP 11/14/16 01/22/[address] [facility] [address] [place] [address] Chemical Tester Dietitian, Registered 07/25/19 Katiana Read MD [address] [facility] 200 [place] [address] Assigned Endocrinology Provider 05/02/20 08/01/21 Roshni Nascimento, RN Personal Advocate & Liaison (PAL) Family Medicine 08/18/20 Kiet Swain MD [address] [place] [address] [address] [place] [address] Referring Physician Psychiatry 09/19/20 Winsome Pike APRN REVIEW ENGINEER [address] [place] [address] 398344 Nurse Practitioner Psychiatry 09/19/[address] [facility] [address] [place] [address] [id number] Public Service Officer Public Service Officer - Clinical 09/19/20 Miranda Queen [facility] [address] [place] [address] Pharmacist Pharmacist 11/12/20 Winsome Pike APRN REVIEW ENGINEER [address] [place] [address] Assigned Behavioral Health Provider 01/04/21 07/02/22 Marisel Armando MD [address] [place] [address] Gastroenterology 02/05/21 Marisel Armando MD [address] [place] [address] Assigned Gastroenterology Provider 03/08/21 12/24/22 Inderjit Ugalde MD [address] [place] [address] Assigned Surgical Provider 02/15/21 08/20/22 Wesley Barrett MD [address] [facility] 96 [place] [address] Assigned Neuroscience Provider 05/10/21 Charles Jaramillo PA-C 6545 [facility] [address] [place] [address] Assigned Musculoskeletal Provider 04/26/21 10/15/22 Miranda Queen [facility] [address] [place] [address] Assigned MTM Pharmacist 12/05/21 03/26/22 [place] [address] [place] [address] Assigned PCP 01/23/22 05/14/22 Miranda Queen [facility] [address] [place] [address] Assigned MTM Pharmacist 04/07/22 05/14/22 [place] [address] [place] [address] Assigned PCP 05/15/22 Katiana Read MD [address] [facility] [address] [place], [place] 153950 Assigned Endocrinology Provider 06/19/22 [place] [address] [place] [address] Assigned Behavioral Health Provider 07/03/22 12/31/22 Deena Garza APRN REVIEW ENGINEER [address] [address] [place] [address] Assigned Pain Medication Provider 07/19/22 10/29/22 [place] [address] [address] [place] [address] Nurse Practitioner Nurse Practitioner 10/18/22 Elham Stack, [facility] [address] [place], [place] [address] Pharmacist Pharmacist 10/19/22 Emerita Potter, [facility] Clinic Occupational Therapy Aide Public Service Officer - Clinical 10/29/22 11/02/22 [place] [address] [facility] [place] [address] Assigned Pain Medication Provider 10/30/22 12/03/22 Michelle Guzman DPM, Podiatry/Foot and Ankle Surgery [address] [place] [address] Assigned Musculoskeletal Provider 10/16/22 04/08/23 [place] [address] [place] [address] Assigned Pain Medication Provider 12/04/22 04/01/23 [place] [address] [address] [place] [address] Nurse Practitioner Nurse Practitioner 01/17/23 01/17/23 Aubrey Jones MD [address] [place] [address] Cardiovascular Disease 03/28/23 Blanquita Morales Chemical Tester Diabetes Education 04/25/23 Aubrey Jones MD [address] [place] [address] Assigned Heart and Vascular Provider 05/07/23 documented as of this encounter
--- OUTSIDE RECORDS SUMMARY | 2023-08-03 12:50 | XMS_ITS | Encounter Summary ---
Author Name Unknown Organization [facility] Address [address] [place] [address]. [place] [address] Care Team Providers Care Paper Cup Handle Machine Operator Name Role Phone Len Adhikari MD Primary Care Provider Jovany Gonzalez MD Unavailable CrissyStaci jeong PARTS CLERK PLANT MAINTENANCE Unavailable [phone] Len Adhikari MD Unavailable Reanna Smith RD Unavailable Katiana Read MD Unavailable [phone] Roshni Nascimento RN Unavailable Unavailable Kiet Swain MD Unavailable [phone] Winsome Pike APRN KNUCKLE BENDER Unavailable [phone] Tori HinesSW Unavailable Miranda Queen [facility] Unavailable Unavailable Winsome Pike APRN KNUCKLE BENDER Unavailable [phone] Marisel Armando MD Unavailable Marisel Armando MD Unavailable Inderjit Ugalde MD Unavailable [phone] Wesley Barrett MD Unavailable [phone] Charles Jaramillo PA-C Unavailable [phone] Miranda Queen [facility] Unavailable Unavailable Leeann Rinaldi MD Unavailable Miranda Queen [facility] Unavailable Unavailable Dyan Fuentes MD Primary Care Provider [phone] Dyan Fuentes MD Unavailable [phone] Katiana Read MD Unavailable [phone] Meme Singleton PhD Unavailable +[phone] Deena Garza ENGRAVING PATTERNMAKER KNUCKLE BENDER Unavailable [phone] Mary Del Cid PARTS CLERK PLANT MAINTENANCE Unavailable +[phone] Elham Stack [facility] Unavailable [phone] Emerita Potter [facility] Unavailable [phone] Mary Del Cid PARTS CLERK PLANT MAINTENANCE Unavailable +[phone] Michelle Guzman DPM, Podiatry /Foot [...] Never 09/20/2020 How often do you attend [facility] or mandaeism services? Never 09/20/2020 Do you belong to [...] Answer Date Recorded PHQ-2 Score 2 02/02/2021 [facility] of Occupat ional Health - [...] COVID-19? No / Unsure 07/09/2021 5:55 PM [employer]ICAN [employer] documented as of this encounter Plan of Treatment Upcoming Encounters Date Type Department Care Team (Late st Contact Info) Description 08/18/2023 3:00 PM MEXICAN [employer]OOK Office Visit [facility] [address] [facility] [address] [place] [address] Katiana Read MD [address] [facility] [address] [place] [address] documented as of this encounter Visit Diagnoses [...] as of this encounter Care Teams Paper Cup Handle Machine Operator Relationship Specialty Start Date End Date Len Adhikari MD PCP - General Family Practice 11/08/16 05/09/22 [place] [address] [place] [address] PCP - General Family Medicine 05/18/22 Jovayn Gonzalez MD [facility] [address] [facility] 605 [place] [address] Orthopedics 02/15/17 Staci Woodward PARTS CLERK PLANT MAINTENANCE [place] [address] [place] [address] Nurse Practitioner Nurse Practitioner Psych/Mental Health 05/10/17 [place] [address] [facility] [place] [address] Assigned PCP 11/14/16 01/22/[address] [address] Sales Representative Business Courses Dietitian, Registered 07/25/19 Katiana Read MD [address] [place] [address] 200 [place] [address] Assigned Endocrinology Provider 05/02/20 08/01/21 Roshni Nascimento, RN Personal Advocate & Liaison (PAL) Family Medicine 08/18/20 Kiet Swain MD [facility] [address] [place], [place] [address] Referring Physician Psychiatry 09/19/20 Winsome Pike APRN KNUCKLE BENDER [address] [place] [address] 309854 Nurse Practitioner Psychiatry 09/19/20 Tori Hines [facility] [address] [place] [address] 544644 Staffing Recruiter Staffing Recruiter - Clinical 09/19/20 Miranda Queen [facility] [address] [place] [address] Pharmacist Pharmacist 11/12/20 Winsome Pike APRN KNUCKLE BENDER [address] [place] [address] Assigned Behavioral Health Provider 01/04/21 07/02/22 Marisel Armando MD [address] [place] [address] Gastroenterology 02/05/21 Marisel Armando MD [address] [place] [address] Assigned Gastroenterology Provider 03/08/21 12/24/22 Inderjit Ugalde MD [address] [facility] 300 [place], [place] [address] Assigned Surgical Provider 02/15/21 08/20/22 Wesley Barrett MD 420 [facility] 96 [place] [address] Assigned Neuroscience Provider 05/10/21 Charles Jaramillo PA-C 6545 [facility] [address] [place] [address] Assigned Musculoskeletal Provider 04/26/21 10/15/22 Miranda Queen [facility] [address] [place] [address] Assigned MTM Pharmacist 12/05/21 03/26/22 [place] [address] [place] [address] Assigned PCP 01/23/22 05/14/22 Miranda Queen [facility] [address] [place] [address] Assigned MTM Pharmacist 04/07/22 05/14/22 [place] [address] [place] [address] Assigned PCP 05/15/22 Katiana Read MD [address] [place] [address] 200 [place] [address] Assigned Endocrinology Provider 06/19/22 [place]e [place] PhD [address] [place] [place] [address] Assigned Behavioral Health Provider 07/03/22 12/31/22 Deena Garza APRN KNUCKLE BENDER [address] [place] [address] Assigned Pain Medication Provider 07/19/22 10/29/22 [place] [address] [place] [address] Nurse Practitioner Nurse Practitioner 10/18/22 Elham Stack, [facility] [address] [place] [address] Pharmacist Pharmacist 10/19/22 Emerita Potter, [facility] Clinic Steam Conditioner Filling Staffing Recruiter - Clinical 10/29/22 11/02/22 [place] [address] [place] [address] Assigned Pain Medication Provider 10/30/22 12/03/22 Michelle Guzman DPM, Podiatry/Foot and Ankle Surgery [address] [place] [address] Assigned Musculoskeletal Provider 10/16/22 04/08/23 [place] [address] [place] [address] Assigned Pain Medication Provider 12/04/22 04/01/23 [place] [address] [address] [address] Nurse Practitioner Nurse Practitioner 01/17/23 01/17/23 Aubrey Jones MD [address] [place] [address] Cardiovascular Disease 03/28/23 Blanquita Morales Sales Representative Business Courses Diabetes Education 04/25/23 Aubrey Jones MD [address] [place] [address] Assigned Heart and Vascular Provider 05/07/23 documented as of this encounter
--- OUTSIDE RECORDS SUMMARY | 2023-08-03 12:50 | XMS_ITS | Encounter Summary ---
Author Name Unknown Organization [facility] Address [address] [place] [address]. [place] [address] Care Team Providers Care Construction Craft Laborer Name Role Phone Len Adhikari MD Primary Care Provider [phone] Jovany Gonzalez MD Unavailable CrissyStaci jeong TANK HOUSE OPERATOR HELPER Unavailable [phone] Len Adhikari MD Unavailable Reanna Smith RD Unavailable Katiana Read MD Unavailable [phone] Roshni Nascimento RN Unavailable Unavailable Kiet Swain MD Unavailable [phone] Winsome Pike APRN BUSINESS PROCESS ENGINEER Unavailable [phone] Tori HinesSW Unavailable Miranda Queen [facility] Unavailable Unavailable Winsome Pike APRN BUSINESS PROCESS ENGINEER Unavailable [phone] Marisel Armando MD Unavailable Marisel Armando MD Unavailable Inderjit Ugalde MD Unavailable [phone] Wesley Barrett MD Unavailable [phone] Charles Jaramillo PA-C Unavailable [phone] Miranda Queen [facility] Unavailable Unavailable Leeann Rinaldi MD Unavailable Miranda Queen [facility] Unavailable Unavailable Dyan Fuentes MD Primary Care Provider [phone] Dyan Fuentes MD Unavailable [phone] Katiana Read MD Unavailable [phone] Meme Singleton PhD Unavailable +[phone] Deena Garza APRN BUSINESS PROCESS ENGINEER Unavailable [phone] Mary Del Cid TANK HOUSE OPERATOR HELPER Unavailable + [phone] Elham Stack [facility] Unavailable [phone] Abbey Emerita M [facility] Unavailable [phone] Mary Del Cid TANK HOUSE OPERATOR HELPER Unavailable + [phone] Michelle Guzman DPM, Podiatry /Foot and Ankle [...] (Late st Contact Info) Description 07/16/2021 Refill [facility] [place] [address] [place] [address] [address] [place], [place] [id number] Deena Garza APRN BUSINESS PROCESS ENGINEER [address] [place] 283057 Refill Request (methocarbamol (ROBAXIN) 500 MG tablet) [...] do you attend chur or faith services? Never 09/20/2020 Do you belong to [...] Answer Date Recorded PHQ-2 Score 2 02/02/2021 [facility] of Occupat ional Health - [...] COVID-19? 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 [employer]ER [employer] documented in this encounter Plan of Treatment Upcoming Encounters Date Type Department Care Team (Late st Contact Info) Description 08/18/2023 3:00 PM [employer]ARM[employer] Office [facility] [address] [facility] [address] [place] [address] Katiana Read MD [address] [place] [address] documented as of this encounter Visit Diagnoses [...] documented as of this encounter Care Teams Construction Craft Laborer Relationship Specialty Start Date End Date Len Adhikari MD PCP - General Family Practice 11/08/16 05/09/22 [place] [address] [place] [address] PCP - General Family Medicine 05/18/22 Jovany Gonzalez MD [facility] 66[address] [facility] 605 [place], [place] [address] Orthopedics 02/15/17 Staci Woodward TANK HOUSE OPERATOR HELPER [facility] [address] [place] [address] Nurse Practitioner Nurse Practitioner Psych/Mental Health 05/10/17 [place] [address] [facility] [place] [address] Assigned PCP 11/14/16 01/22/[address] [facility] [address] [place], [place] 36[address] Weaving Inspector Dietitian, Registered 07/25/19 Katiana Read MD [address] [facility] 200 [place], [place] 3[address] Assigned Endocrinology Provider 05/02/20 08/01/21 Roshni Nascimento RN Personal Advocate & Liaison (PAL) Family Medicine 08/18/20 Kiet Swain MD [address] [place], [place] [address] [place], [place] [address] Referring Physician Psychiatry 09/19/20 Winsome Pike APRN BUSINESS PROCESS ENGINEER [address] [place] [address] Nurse Practitioner Psychiatry 09/19/20 Tori Hines, [facility] [place] [address] Fitter Tacker Fitter Tacker - Clinical 09/19/20 Miranda Queen [facility] [address] [place] [address] Pharmacist Pharmacist 11/12/20 Winsome Pike APRN CNP [address] [place] [address] [id number] Assigned Behavioral Health Provider 01/04/21 07/02/22 Marisel Armando MD [address] [place] [address] Gastroenterology 02/05/21 Marisel Armando MD [address] [place] [address] 719585 Assigned Gastroenterology Provider 03/08/21 12/24/22 Inderjit Ugalde MD [address] [facility] 300 [place], [place] [address] Assigned Surgical Provider 02/15/21 08/20/22 Wesley Barrett MD [address] [facility] 96 [place], [place] [address] Assigned Neuroscience Provider 05/10/21 Charles Jaramillo PA-C [address] [address] Assigned Musculoskeletal Provider 04/26/21 10/15/22 Miranda Queen [facility] [address] [facility] [place] [address] Assigned MTM Pharmacist 12/05/21 03/26/22 [place] [address] [place] [address] Assigned PCP 01/23/22 05/14/22 Miranda Queen [facility] [address] [facility] [place] [address] Assigned MTM Pharmacist 04/07/22 05/14/22 [place] [address] [facility] [place] [address] Assigned PCP 05/15/22 Katiana Read MD [address] [place] [address] Assigned Endocrinology Provider 06/19/22 [place] [address] [place] [address] Assigned Behavioral Health Provider 07/03/22 12/31/22 Deena Garza APRN BUSINESS PROCESS ENGINEER [address] [place] [address] Assigned Pain Medication Provider 07/19/22 10/29/22 Mray Del Cid, RAFAEL [address] [place] [address] Nurse Practitioner Nurse Practitioner 10/18/22 Elham Stack, [facility] [address] [facility] [place] [address] Pharmacist Pharmacist 10/19/22 Emerita Potter, [facility] Clinic Ice Guard Skating Rink Fitter Tacker - Clinical 10/29/22 11/02/22 [place] [address] [place] [address] Assigned Pain Medication Provider 10/30/22 12/03/22 Michelle Guzman, DPM, Podiatry/Foot and Ankle Surgery [address] [place] [address] Assigned Musculoskeletal Provider 10/16/22 04/08/23 [place] [address] [place] [address] Assigned Pain Medication Provider 12/04/22 04/01/23 [place] [address] [place] [address] Nurse Practitioner Nurse Practitioner 01/17/23 01/17/23 Aubrey Jones MD [address] [place] [address] Cardiovascular Disease 03/28/23 Blanquita Morales Weaving Inspector Diabetes Education 04/25/23 Aubrey Jones MD [address] [place] [address] Assigned Heart and Vascular Provider 05/07/23 documented as of this encounter
--- OUTSIDE RECORDS SUMMARY | 2023-08-03 12:51 | XMS_ITS | Encounter Summary ---
Author Name Unknown Organization [place] Address [address] [place] [address]. [place] [address] Care Team Providers Care Gill Box Tender Name Role Phone Len Adhikari MD Primary Care Provider Jovany Gonzalez MD Unavailable CrissyStaci jeong ORGAN TUNER ELECTRONIC Unavailable [phone] Len Adhikari MD Unavailable Reanna Smith RD Unavailable Katiana Read MD Unavailable [phone] Roshni Nascimento RN Unavailable Unavailable Kiet Swain MD Unavailable [phone] Winsome Pike APRN SCHOOL HEALTH ASSISTANT Unavailable +[phone] Tori HinesSW Unavailable Miranda Queen [facility] Unavailable Unavailable Winsome Pike APRN SCHOOL HEALTH ASSISTANT Unavailable [phone] Marisel Armando MD Unavailable Marisel Armando MD Unavailable Inderjit Ugalde MD Unavailable [phone] Wesley Barrett MD Unavailable +[phone] Charles Jaramillo PA-C Unavailable [phone] Miranda Queen [facility] Unavailable Unavailable Leeann Rinaldi MD Unavailable Miranda Queen [facility] Unavailable Unavailable Dyan Fuentes MD Primary Care Provider [phone] Dyan Fuentes MD Unavailable +[phone] Katiana Read MD Unavailable +[phone] Meem Singleton PhD Unavailable + Deena Garza AREA DEVELOPMENT CONSULTANT SCHOOL HEALTH ASSISTANT Unavailable +[phone] Mary Del Cid ORGAN TUNER ELECTRONIC Unavailable +[phone] Elham Stack [facility] Unavailable [phone] Emerita Potter [facility] Unavailable +[phone] Mary Del Cid ORGAN TUNER ELECTRONIC Unavailable +[phone] Michelle Guzman DPM, Podiatry /Foot and Ankle Surgery Unavailable Dyan Fuentes MD Unavailable [phone] Mary Del Cid NP Unavailable +[phone] Aubrey Jones MD Unavailable [phone] Blanquita Morales Unavailable Unavailable Aubrey Jones MD Unavailable + [phone] Encounter Details Date Type Department Care Team (Late st Contact Info) Description 05/01/2021 [facility] [id number] [place] [id number] Roshni Nascimento, RN Social History Tobacco [...] you attend chur ch or yazidism services? Never 09/20/2020 Do you [...] Answer Date Recorded PHQ-2 Score 2 02/02/2021 [facility] [place] of Occupat ional Health - Occupational Stress [...] st Contact Info) Description 08/18/2023 3:00 PM BUGGY DRIVER Office Visit [facility] [address] [place] [address] Katiana Read MD [address] [place] [address] documented as of this encounter Visit Diagnoses [...] documented as of this encounter Care Teams Gill Box Tender Relationship Specialty Start Date End Date Len Adhikari MD PCP - General Family Practice 11/08/16 05/09/22 [place] [address] [place] [address] PCP - General Family Medicine 05/18/22 Jovany Gonzalez MD [facility] [address] [facility] [address] [place], [place] 7[address] Orthopedics 02/15/17 Staci Woodward ORGAN TUNER ELECTRONIC [place] [address] [place], [place] [address] Nurse Practitioner Nurse Practitioner Psych/Mental Health 05/10/17 [place] [address] [place] [address] Assigned PCP 11/14/16 01/22/[address] [facility] [address] [place] [address] Sap Hana Developer Dietitian, Registered 07/25/19 Katiana Read MD [address] [facility] [address] [place] [address] Assigned Endocrinology Provider 05/02/20 08/01/21 Roshni Nascimento, RN Personal Advocate & Liaison (PAL) Family Medicine 08/18/20 Kiet Swain MD [address] [place], [place] [address] [place] [address] Referring Physician Psychiatry 09/19/20 Winsome Pike APRN SCHOOL HEALTH ASSISTANT [address] [place] [address] [phone] Nurse Practitioner Psychiatry 09/19/20 Tori Hines [facility] [address] [place] [address] [phone] Community Development Specialist Community Development Specialist - Clinical 09/19/20 Miranda Queen [facility] [address] [place] [address] Pharmacist Pharmacist 11/12/20 Winsome Pike APRN SCHOOL HEALTH ASSISTANT [address] [place] [address] Assigned Behavioral Health Provider 01/04/21 07/02/22 Marisel Armando MD [address] [place] [address] Gastroenterology 02/05/21 Marisel Armando MD [address] [place] [address] Assigned Gastroenterology Provider 03/08/21 12/24/22 Inderjit Ugalde MD [address] [place] [address] Assigned Surgical Provider 02/15/21 08/20/22 Wesley Barrett MD [address] [facility] 96 [place] [address] Assigned Neuroscience Provider 05/10/21 Charles Jaramillo PA-C [address] [facility] [address] [facility] [address] [place] [address] Assigned Musculoskeletal Provider 04/26/21 10/15/22 Miranda Queen [facility] [address] [place] [address] Assigned MTM Pharmacist 12/05/21 03/26/22 [place] [address] [place] [address] Assigned PCP 01/23/22 05/14/22 Miranda Queen [facility] [address] [place] [address] Assigned MTM Pharmacist 04/07/22 05/14/22 [place] [address] [place] [address] Assigned PCP 05/15/22 Katiana Read MD [address] [address] [place], [place] 6[address] Assigned Endocrinology Provider 06/19/22 [place]e [place] PhD [address] [place] [address] Assigned Behavioral Health Provider 07/03/22 12/31/22 Deena Garza APRN SCHOOL HEALTH ASSISTANT [address] [facility] [place] [address] Assigned Pain Medication Provider 07/19/22 10/29/22 [place] [address] [facility] [place] [address] Nurse Practitioner Nurse Practitioner 10/18/22 Elham Stack, [facility] [address] [place], [place] [address] Pharmacist Pharmacist 10/19/22 Emerita Potter, [facility] Clinic Cellular Equipment Repairer Community Development Specialist - Clinical 10/29/22 11/02/22 [place] [address] [facility] [place] [address] Assigned Pain Medication Provider 10/30/22 12/03/22 Michelle Guzman DPM, Podiatry/Foot and Ankle Surgery [address] [facility] [place] [address] Assigned Musculoskeletal Provider 10/16/22 04/08/23 [place] [address] [place] [address] Assigned Pain Medication Provider 12/04/22 04/01/23 [place] [address] [facility] [place] [address] Nurse Practitioner Nurse Practitioner 01/17/23 01/17/23 Aubrey Jones MD [address] [place] [address] Cardiovascular Disease 03/28/23 Blanquita Morales Sap Hana Developer Diabetes Education 04/25/23 Aubrey Jones MD [address] [place] [address] Assigned Heart and Vascular Provider 05/07/23 documented as of this encounter
--- OUTSIDE RECORDS SUMMARY | 2023-08-03 12:51 | XMS_ITS | Encounter Summary ---
Author Name Unknown Organization [place] Address [address] [place] [address]. [place] [address] Care Team Providers Care Dull Coat Mill Operator Name Role Phone Len Adhikari MD Primary Care Provider [phone] Jovany Gonzalez MD Unavailable CrissyStaci jeong NUT SHELLER Unavailable [phone] Len Adhikari MD Unavailable Reanna Smith RD Unavailable Katiana Read MD Unavailable [phone] Roshni Nascimento RN Unavailable Unavailable Kiet Swain MD Unavailable [phone] Winsome Pike APRN CLINICAL IMMUNOLOGIST Unavailable [phone] Tori HinesSW Unavailable Miranda Queen [facility] Unavailable Unavailable Winsome Pike APRN CLINICAL IMMUNOLOGIST Unavailable [phone] Marisel Armando MD Unavailable Marisel Armando MD Unavailable Inderjit Ugalde MD Unavailable [phone] eWsley Barrett MD Unavailable [phone] Charles Jaramillo PA-C Unavailable [phone] Miranda Queen [facility] Unavailable Unavailable eLeann Rinaldi MD Unavailable Miranda Queen [facility] Unavailable Unavailable Dyan Fuentes MD Primary Care Provider [phone] Dyan Fuentes MD Unavailable +[phone] Katiana Read MD Unavailable [phone] Meme Singleton PhD Unavailable +[phone] Deena Garza TUBER MACHINE OPERATOR CLINICAL IMMUNOLOGIST Unavailable [phone] Mary Del Cid NUT SHELLER Unavailable + [phone] Elham Stack [facility] Unavailable [phone] Emerita Potter [facility] Unavailable [phone] Mary Del Cid NUT SHELLER Unavailable + [phone] Michelle Guzman DPM, Podiatry /Foot and Ankle Surgery Unavailable Dyan Fuentes MD Unavailable +[phone] Mary Del Cid NP Unavailable + [phone] Aubrey Jones MD Unavailable [phone] Blanquita Morales Unavailable Unavailable Aubrey Jones MD Unavailable [phone] Encounter Details Date Type Department Care Team (Late st [facility] Info) Description 05/11/2021 [facility] [address] [facility] [address] [place] [address] Rachelle Benites, [facility] Social History Tobacco Use Types Packs/Day Years [...] 2 02/02/2021 [facility] - Occupational Stress Questionnaire [...] slept in a retirement (including now)? No 09/20/2020 Education Answer Date [...] st Contact Info) Description 08/18/2023 3:00 PM BRIDAL GOWN FITTER Office Visit [facility] [address] [place] [address] Katiana Read MD [address] [place], [place] [address] documented as of this encounter Visit Diagnoses [...] documented as of this encounter Care Teams Dull Coat Mill Operator Relationship Specialty Start Date End Date Len Adhikari MD PCP - General Family Practice 11/08/16 05/09/22 [place] [address] [place] [address] PCP - General Family Medicine 05/18/22 Jovany Gonzalez MD [facility] [address] [facility] 605 [place], [place] [address] Orthopedics 02/15/17 Staci Woodward NUT SHELLER [facility] [address] [place] [address] Nurse Practitioner Nurse Practitioner Psych/Mental Health 05/10/17 [place] [address] [facility] [place] [address] Assigned PCP 11/14/16 01/22/[address] [facility] [address] [place] [address] Grape Crusher Dietitian, Registered 07/25/19 Katiana Read MD [address] 764790 Assigned Endocrinology Provider 05/02/20 08/01/21 Roshni Nascimento, RN Personal Advocate & Liaison (PAL) Family Medicine 08/18/20 Kiet Swain MD [address] [place] [address] [address] [place] [address] Referring Physician Psychiatry 09/19/20 Winsome Pike APRN CLINICAL IMMUNOLOGIST [address] [place] [address] Nurse Practitioner Psychiatry 09/19/20 Tori Hines [facility] [address] [place] [address] Hat And Cap Opener Hat And Cap Opener - Clinical 09/19/20 Miranda Queen [facility] [address] [place] [address] Pharmacist Pharmacist 11/12/20 Winsome Pike APRN CLINICAL IMMUNOLOGIST [address] [place] [address] Assigned Behavioral Health Provider 01/04/21 07/02/22 Marisel Armando MD [address] [place] [address] Gastroenterology 02/05/21 Marisel Armando MD [address] [place] [address] Assigned Gastroenterology Provider 03/08/21 12/24/22 Inderjit Ugalde MD [address] [place] [address] Assigned Surgical Provider 02/15/21 08/20/22 Wesley Barrett MD 420 [facility] 96 [place] [address] Assigned Neuroscience Provider 05/10/21 Charles Jaramillo PA-C [address] [facility] 450 [place] [address] Assigned Musculoskeletal Provider 04/26/21 10/15/22 [facility] [address] [place] [address] Assigned MTM Pharmacist 12/05/21 03/26/22 [place] [address] [place] [address] Assigned PCP 01/23/22 05/14/22 Miranda Queen [facility] [address] [place] [address] Assigned MTM Pharmacist 04/07/22 05/14/22 [place] [address] [place] [address] Assigned PCP 05/15/22 Katiana Read MD [address] 200 [place] [address] Assigned Endocrinology Provider 06/19/22 [place] [address] [place] [address] [place] [address] Assigned Behavioral Health Provider 07/03/22 12/31/22 Deena Garza APRN CNP [address] [place] [address] Assigned Pain Medication Provider 07/19/22 10/29/22 [place] [address] [place] [address] Nurse Practitioner Nurse Practitioner 10/18/22 Elham Stack, [facility] [address] [place] [address] Pharmacist Pharmacist 10/19/22 Emerita Potter, [facility] Clinic Inspector Metal Fabricating Hat And Cap Opener - Clinical 10/29/22 11/02/22 [place] [address] [place] [address] Assigned Pain Medication Provider 10/30/22 12/03/22 Michelle Guzman DPM, Podiatry/Foot and Ankle Surgery [address] [place] [address] Assigned Musculoskeletal Provider 10/16/22 04/08/23 [place] [address] [place] [address] Assigned Pain Medication Provider 12/04/22 04/01/23 [place] [address] [place] [address] Nurse Practitioner Nurse Practitioner 01/17/23 01/17/23 Aubrey Jones MD [address] [place] [address] Cardiovascular Disease 03/28/23 Blanquita Morales Grape Crusher Diabetes Education 04/25/23 Aubrey Jones MD [address] [place] [address] Assigned Heart and Vascular Provider 05/07/23 documented as of this encounter
--- OUTSIDE RECORDS SUMMARY | 2023-08-03 12:51 | XMS_ITS | Encounter Summary ---
Author Name Unknown Organization [place] Address [address] [place] [address]. [place] [address] Care Team Providers Care Clothes Drier Assembler Name Role Phone Len Adhikari MD Primary Care Provider Jovany Gonzalez MD Unavailable [phone] CrissyStaci jeong NATURAL REMEDY CONSULTANT Unavailable [phone] Len Adhikari MD Unavailable Reanna Smith RD Unavailable Katiana Read MD Unavailable [phone] Jese Doyle MD Unavailable [phone] Roshni Nascimento RN Unavailable Unavailable Kiet Swain MD Unavailable [phone] Winsome Pike APRN REINSURANCE ACCOUNTANT Unavailable [phone] Tori Hines [facility] Unavailable Miranda Queen [facility] Unavailable Unavailable Winsome Pike APRN REINSURANCE ACCOUNTANT Unavailable [phone] Marisel Armando MD Unavailable Marisel Armando MD Unavailable Inderjit Ugalde MD Unavailable [phone] Wesley Barrett MD Unavailable [phone] Charles Jaramillo PA-C Unavailable [phone] Miranda Queen [facility] Unavailable Unavailable Leeann Rinaldi MD Unavailable Miranda Quene [facility] Unavailable Unavailable Dyan Fuentes MD Primary Care Provider [phone] Dyan Fuentes MD Unavailable [phone] Katiana Read MD Unavailable [phone] Meme Singleton PhD Unavailable +[phone] Deena Garza FINANCIAL AIDS OFFICER REINSURANCE ACCOUNTANT Unavailable [phone] Mary Del Cid NP Unavailable + [phone] Elham Stack [facility] Unavailable [phone] Emerita Potter SUPPLY CHAIN ASSOCIATE Unavailable +[phone] Mary Del Cid NP Unavailable + [phone] [...] any clubs o r organizations such as taoism groups, unions, fraternal or athletic groups, or [...] st Contact Info) Description 08/18/2023 3:00 PM HALL TENDER Office Visit [facility] [address] [facility] [address] [place] [address] Katiana Read MD [address] [address] [place] [address] documented as of this encounter Visit Diagnoses [...] documented as of this encounter Care Teams Clothes Drier Assembler Relationship Specialty Start Date End Date Len Adhikari MD PCP - General Family Practice 11/08/16 05/09/22 [place] [address] [place] [address] PCP - General Family Medicine 05/18/22 Jovany Gonzalez MD [facility] 6600 [facility] 605 [place] [address] Orthopedics 02/15/17 Staci Woodward, NATURAL REMEDY CONSULTANT [place] [address] [place] [address] Nurse Practitioner Nurse Practitioner Psych/Mental Health 05/10/17 [place] [address] [facility] [place] [address] Assigned PCP 11/14/16 01/22/[address] [place] [address] [place] [address] Guest Services Assistant Dietitian, Registered 07/25/19 Katiana Read MD [address] [facility] 200 [place] [address] Assigned Endocrinology Provider 05/02/20 08/01/21 Jese Doyle MD [address] [place] [address] 916845 Assigned Pulmonology Provider 05/02/20 04/11/21 Roshni Nascimento, RN Personal Advocate & Liaison (PAL) Family Medicine 08/18/20 Kiet Swain MD [address] [place] [address] [phone] Referring Physician Psychiatry 09/19/20 Winsome Pike APRN REINSURANCE ACCOUNTANT [address] [place] [address] [phone] Nurse Practitioner Psychiatry 09/19/20 Tori Hines [facility] [address] [place] [address] [phone] Hearing Aid Mechanic Hearing Aid Mechanic - Clinical 09/19/20 Miranda Queen [facility] [address] [place] [address] Pharmacist Pharmacist 11/12/20 Winsome Pike APRN REINSURANCE ACCOUNTANT [address] [place] [address] 310754 Assigned Behavioral Health Provider 01/04/21 07/02/22 Marisel Armando MD [address] [place] [address] 521935 Gastroenterology 02/05/21 Marisel Armando MD [address] [place] [address] Assigned Gastroenterology Provider 03/08/21 12/24/22 Inderjit Ugalde MD [address] [facility] 300 [place] [address] Assigned Surgical Provider 02/15/21 08/20/22 Wesley Barrett MD 420 [facility] 96 [place] [address] Assigned Neuroscience Provider 05/10/21 Charles Jaramillo PA-C 6545 [facility] 450 [place] [address] Assigned Musculoskeletal Provider 04/26/21 10/15/22 [facility] [address] [place] [address] Assigned MTM Pharmacist 12/05/21 03/26/22 [place] [address] [place] [address] Assigned PCP 01/23/22 05/14/22 Miranda Queen [facility] [address] [place] [address] Assigned MTM Pharmacist 04/07/22 05/14/22 [place] [address] [place] [address] Assigned PCP 05/15/22 Katiana Read MD [address] 200 [place] [address] Assigned Endocrinology Provider 06/19/22 [place] [address] [place] [address] Assigned Behavioral Health Provider 07/03/22 12/31/22 Deena Garza APRN REINSURANCE ACCOUNTANT [address] [place] [address] Assigned Pain Medication Provider 07/19/22 10/29/22 Mary Del Cid, RAFAEL [address] [place] [address] Nurse Practitioner Nurse Practitioner 10/18/22 Elham Stack, [facility] [address] [facility] [place], [place] [address] Pharmacist Pharmacist 10/19/22 Emerita Potter, [facility] Clinic Powertrain Control Systems Engineer Hearing Aid Mechanic - Clinical 10/29/22 11/02/22 Mary Del Cid, RAFAEL [address] [place] [address] Assigned Pain Medication Provider 10/30/22 12/03/22 Michelle Guzman, DPM, Podiatry/Foot and Ankle Surgery [address] [place] [address] Assigned Musculoskeletal Provider 10/16/22 04/08/23 [place] [address] [place] [address] Assigned Pain Medication Provider 12/04/22 04/01/23 [place] [address] [place] [address] Nurse Practitioner Nurse Practitioner 01/17/23 01/17/23 Aubrey Jones MD [address] [place] [address] Cardiovascular Disease 03/28/23 Blanquita Morales Guest Services Assistant Diabetes Education 04/25/23 Aubrey Jones MD [address] [place] [address] Assigned Heart and Vascular Provider 05/07/23 documented as of this encounter
--- OUTSIDE RECORDS SUMMARY | 2023-08-03 12:51 | XMS_ITS | Encounter Summary ---
Author Name Unknown Organization [facility] Address [address] [place] [address]. [place] [address] Care Team Providers Care Shuttle Veneering Supervisor Name Role Phone Len Adhikari MD Primary Care Provider Jovany Gonzalez MD Unavailable CrissyStaci jeong BOSOM PRESSER Unavailable [phone] Len Adhikari MD Unavailable Reanna Smith RD Unavailable Katiana Read MD Unavailable [phone] Jese Doyle MD Unavailable +[phone] Roshni Nascimento RN Unavailable Unavailable Kiet Swain MD Unavailable [phone] Winsome Pike APRN ILLUMINATING ENGINEER Unavailable +[phone] [facility] Unavailable [facility] Unavailable Unavailable Winsome Pike APRN ILLUMINATING ENGINEER Unavailable [phone] Marisel Armando MD Unavailable Marisel Armando MD Unavailable Inderjit Ugalde MD Unavailable [phone] Wesley Barrett MD Unavailable [phone] Charles Jaramillo PA-C Unavailable [phone] [facility] Unavailable Unavailable Leeann Rinaldi MD Unavailable [facility] Unavailable Unavailable Dyan Fuentes MD Primary Care Provider [phone] Dyan Fuentes MD Unavailable [phone] Katiana Read MD Unavailable [phone] Meme Singleton PhD Unavailable +[phone] Deena Garza FIBERGLASS MODEL MAKER ILLUMINATING ENGINEER Unavailable [phone] Mary Del Cid NP Unavailable + [phone] Elahm Stack [facility] Unavailable [phone] Emerita Potter INNER LAYER SCRUBBER TENDER Unavailable +[phone] Mary Del Cid NP Unavailable + [phone] Michelle Guzman DPM, Podiatry /Foot and Ankle Surgery Unavailable Dyan Fuentes MD Unavailable [phone] Mary Del Cid NP Unavailable + [phone] Aubrey Jones MD Unavailable [phone] Blanquita Morales Unavailable Unavailable Aubrey Jones MD Unavailable [phone] Encounter Details Date Type Department Care Team (Late st Contact Info) Description 04/03/2021 [facility] Medical Advice [facility] [address] [place] [address] Roshni Nascimento, RN Social History [...] you attend chur ch or judaism services? 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 Office Visit [facility] [address] [place] [address] Katiana Read MD [address] [place], [place] [address] documented as of this encounter Visit Diagnoses [...] documented as of this encounter Care Teams Shuttle Veneering Supervisor Relationship Specialty Start Date End Date Len Adhikari MD PCP - General Family Practice 11/08/16 05/09/22 [place] [address] [place] [address] PCP - General Family Medicine 05/18/22 Jovany Gonzalez MD [facility] 6600 [facility] 605 [place], [place] [address] Orthopedics 02/15/17 Staci Woodward, BOSOM PRESSER [facility] [address] [place], [place] 6660[address] Nurse Practitioner Nurse Practitioner Psych/Mental Health 05/10/17 [place] [address] [place] [address] Assigned PCP 11/14/16 01/22/[address] [facility] [address] [place] [address] Access Nurse Dietitian, Registered 07/25/19 Katiana Read MD [address] [place] [address] [phone] Assigned Endocrinology Provider 05/02/20 08/01/21 Jese Doyle MD [address] [place] [address] 330385 Assigned Pulmonology Provider 05/02/20 04/11/21 Roshni Nascimento, RN Personal Advocate & Liaison (PAL) Family Medicine 08/18/20 Kiet Swain MD [address] [place] [address] 472204 Referring Physician Psychiatry 09/19/20 Winsome Pike APRN ILLUMINATING ENGINEER [address] [place] [address] [phone] Nurse Practitioner Psychiatry 09/19/20 Tori Hines, [facility] [address] [place] [address] [phone] Registered Nurses Registered Nurses - Clinical 09/19/20 [facility] [address] [place] [address] Pharmacist Pharmacist 11/12/20 Winsome Pike APRN ILLUMINATING ENGINEER [address] [place] [address] 675484 Assigned Behavioral Health Provider 01/04/21 07/02/22 Marisel Armando MD [address] [place] [address] 568385 Gastroenterology 02/05/21 Marisel Armando MD 909 [place] [address] Assigned Gastroenterology Provider 03/08/21 12/24/22 Inderjit Ugalde MD [address] [place] [address] Assigned Surgical Provider 02/15/21 08/20/22 Wesley Barrett MD 420 [facility] 96 [place] [address] Assigned Neuroscience Provider 05/10/21 Charles Jaramillo PA-C 6545 [facility] 450 [place] [address] Assigned Musculoskeletal Provider 04/26/21 10/15/22 [facility] [address] [place] [address] Assigned MTM Pharmacist 12/05/21 03/26/22 [place] [address] [place] [address] Assigned PCP 01/23/22 05/14/22 [facility] [address] [place] [address] Assigned MTM Pharmacist 04/07/22 05/14/22 [place] [address] [place] [address] Assigned PCP 05/15/22 Katiana Read MD [address] [place] [address] Assigned Endocrinology Provider 06/19/22 Meme Singleton, PhD [address] [place] [address] Assigned Behavioral Health Provider 07/03/22 12/31/22 Deena Garza APRN ILLUMINATING ENGINEER [address] [place] [address] Assigned Pain Medication Provider 07/19/22 10/29/22 Mary Del Cid, RAFAEL [address] [place] [address] Nurse Practitioner Nurse Practitioner 10/18/22 Elham Stack, [facility] [address] [place] [address] Pharmacist Pharmacist 10/19/22 Emerita Potter, [facility] Clinic Manager Mail Registered Nurses - Clinical 10/29/22 11/02/22 [place] [address] [place] [address] Assigned Pain Medication Provider 10/30/22 12/03/22 Michelle Guzman DPM, Podiatry/Foot and Ankle Surgery [address] [place] ABREU [facility] [place] [address] Assigned Musculoskeletal Provider 10/16/22 04/08/23 [place] [address] [place] [address] Assigned Pain Medication Provider 12/04/22 04/01/23 [place] [address] [place] [address] Nurse Practitioner Nurse Practitioner 01/17/23 01/17/23 Aubrey Jones MD [address] [place] [address] Cardiovascular Disease 03/28/23 Blanquita Morales Access Nurse Diabetes Education 04/25/23 Aubrey Jones MD [address] [place] [address] Assigned Heart and Vascular Provider 05/07/23 documented as of this encounter
--- OUTSIDE RECORDS SUMMARY | 2023-08-03 12:51 | XMS_ITS | Encounter Summary ---
Author Name Unknown Organization [facility] Address [address] [place] [address]. [place] [address] Care Team Providers Care Airport Skilled Maintenance Supervisor Name Role Phone Len Adhikari MD Primary Care Provider Jovany Gonzalez MD Unavailable CrissyStaci jeong ORCHID GROWER Unavailable [phone] Len Adhikari MD Unavailable Reanna Smith RD Unavailable [phone] Katiana Read MD Unavailable [phone] Roshni Nascimento RN Unavailable Unavailable Kiet Swain MD Unavailable [phone] Winsome Pike APRN [employer] Unavailable [phone] Tori HinesSW Unavailable Miranda Queen [facility] Unavailable Unavailable Winsome Pike APRN [employer] Unavailable [phone] Marisel Armando MD Unavailable Marisel Armando MD Unavailable Inderjit Ugalde MD Unavailable [phone] Wesley Barrett MD Unavailable [phone] Charles Jaramillo PA-C Unavailable [phone] Miranda Queen [facility] Unavailable Unavailable Leeann Rinaldi MD Unavailable Miranda Queen [facility] Unavailable Unavailable Dyan Fuentes MD Primary Care Provider [phone] Dyan Fuentes MD Unavailable [phone] Katiana Read MD Unavailable [phone] Meme Singleton PhD Unavailable +[phone] Deena Garza DRAINAGE DESIGN COORDINATOR [employer] Unavailable [phone] Mary Del Cid ORCHID GROWER Unavailable +[phone] Elham Stack [facility] Unavailable [phone] Emerita Potter [facility] Unavailable [phone] Mary Del iCd ORCHID GROWER Unavailable +[phone] Michelle Guzman DPM, Podiatry /Foot [...] Never 09/20/2020 How often do you attend [facility] or jainism services? Never 09/20/2020 Do you belong to [...] [facility] of Occupat ional Health [...] st Contact Info) Description 08/18/2023 3:00 PM ETHICAL HACKER Office Visit [facility] [address] [facility] [address] [place] [address] Katiana Read MD [address] 200 [place] [address] documented as of this encounter [...] documented as of this encounter Care Teams Airport Skilled Maintenance Supervisor Relationship Specialty Start Date End Date Len Adhikari MD PCP - General Family Practice 11/08/16 05/09/22 [place] [address] [place] [address] PCP - General Family Medicine 05/18/22 Jovany Gonzalez MD [facility] [address] [facility] 605 [place] [address] Orthopedics 02/15/17 Staci Woodward NP [place] [address] [place], [place] [address] Nurse Practitioner Nurse Practitioner Psych/Mental Health 05/10/17 [place] [address] [facility] [place] [address] Assigned PCP 11/14/16 01/22/[address] [facility] [address] [place] [address] Packaging Operator Dietitian, Registered 07/25/19 Katiana Read MD [address] [place] [address] 200 [place] [address] Assigned Endocrinology Provider 05/02/20 08/01/21 Roshni Nascimento, RN Personal Advocate & Liaison (PAL) Family Medicine 08/18/20 Kiet Swain MD [facility] [address] [place], [place] 5925[address] Referring Physician Psychiatry 09/19/20 Winsome Pike APRN [employer] [address] [place] [address] 969574 Nurse Practitioner Psychiatry 09/19/20 Tori Hines, [facility] [address] [place] [address] 482134 Industrial Methods Consultant Industrial Methods Consultant - Clinical 09/19/20 Miranda Queen [facility] [address] [place] [address] Pharmacist Pharmacist 11/12/20 Winsome Pike APRN [employer] [address] [place] [address] Assigned Behavioral Health Provider 01/04/21 07/02/22 Marisel Armando MD [address] [place] [address] Gastroenterology 02/05/21 Marisel Armando MD [address] [place] [address] Assigned Gastroenterology Provider 03/08/21 12/24/22 Inderjit Ugalde MD [address] [facility] 300 [place], [place] [address] Assigned Surgical Provider 02/15/21 08/20/22 Wesley Barrett MD 420 [facility] 96 [place], [place] 8[address] Assigned Neuroscience Provider 05/10/21 Charles Jaramillo PA-C 6545 [facility] 450 [place] [address] Assigned Musculoskeletal Provider 04/26/21 10/15/22 [facility] [address] [place] [address] Assigned MTM Pharmacist 12/05/21 03/26/22 [place] [address] [place] [address] Assigned PCP 01/23/22 05/14/22 [facility] [address] [place] [address] Assigned MTM Pharmacist 04/07/22 05/14/22 [place] [address] [place] [address] Assigned PCP 05/15/22 Katiana Read MD [address] [place] [address] 200 [place] [address] Assigned Endocrinology Provider 06/19/22 Meme [place] PhD [address] [place] [address] Assigned Behavioral Health Provider 07/03/22 12/31/22 Deena Garza, DRAINAGE DESIGN COORDINATOR [employer] [address] [place] [address] Assigned Pain Medication Provider 07/19/22 10/29/22 [place] [address] [place] [address] Nurse Practitioner Nurse Practitioner 10/18/22 Elham Stack, [facility] [address] [place] [address] Pharmacist Pharmacist 10/19/22 Emerita Potter, [facility] Clinic Fiber Machine Tender Industrial Methods Consultant - Clinical 10/29/22 11/02/22 [place] [address] [place] [address] Assigned Pain Medication Provider 10/30/22 12/03/22 Michelle Guzman DPM, Podiatry/Foot and Ankle Surgery [address] [place] [address] Assigned Musculoskeletal Provider 10/16/22 04/08/23 [place] [address] [place] [address] Assigned Pain Medication Provider 12/04/22 04/01/23 [place] [address] [place] [address] Nurse Practitioner Nurse Practitioner 01/17/23 01/17/23 Aubrey Jones MD [address] [place] [address] Cardiovascular Disease 03/28/23 Blanquita Morales Packaging Operator Diabetes Education 04/25/23 Aubrey Jones MD [address] [place] [address] Assigned Heart and Vascular Provider 05/07/23 documented as of this encounter
--- OUTSIDE RECORDS SUMMARY | 2023-08-03 12:51 | XMS_ITS | Encounter Summary ---
Author Name Unknown Organization [facility] Address [address] [place] [address]. [place] [address] Care Team Providers Care Field Appraiser Name Role Phone Len Adhikari MD Primary Care Provider Jovany Gonzalez MD Unavailable CrissyStaci jeong PRODUCT CRAFTSMAN Unavailable [phone] Len Adhikari MD Unavailable Reanna Smith RD Unavailable Katiana Read MD Unavailable [phone] Roshni Nascimento RN Unavailable Unavailable Kiet Swain MD Unavailable [phone] Winsome Pike APRN GARLAND MAKER Unavailable [phone] Tori HinesSW Unavailable Miranda Queen [facility] Unavailable Unavailable Winsome Pike APRN [place] MAKER Unavailable [phone] Marisel Armando MD Unavailable Marisel Armando MD Unavailable Inderjit Ugalde MD Unavailable [phone] Wesley Barrett MD Unavailable [phone] Charles Jaramillo PA-C Unavailable [phone] Miranda Queen [facility] Unavailable Unavailable Leeann Rinaldi MD Unavailable Miranda Queen [facility] Unavailable Unavailable Dyan Fuentes MD Primary Care Provider [phone] Dyan Fuentes MD Unavailable +[phone] Katiana Read MD Unavailable [phone] Meme Singleton PhD Unavailable +[phone] Deena Garza DEPARTMENT SUPERVISOR [place] MAKER Unavailable [phone] Mary Del Cid PRODUCT CRAFTSMAN Unavailable + [phone] Elham Stack [facility] Unavailable [phone] [place] Emerita Alisha [facility] Unavailable +[phone] Mary Del Cid PRODUCT CRAFTSMAN Unavailable + [phone] Michelle Guzman DPM, Podiatry /Foot and Ankle Surgery Unavailable Dyan Fuentes MD Unavailable +[phone] Mary Del Cid NP Unavailable + [phone] Aubrey Jones MD Unavailable [phone] Blanquita Morales Unavailable Unavailable Aubrey Jones MD Unavailable [phone] Reason for Visit * Reason Comments Medication Refill Encounter Details Date Type Department Care Team (Late st Contact Info) Description 05/26/2021 [facility] [address] [place] [address] [place] [address] [place] [address] Medication Refill Social History Tobacco [...] you attend chur ch or islam services? Never 09/20/2020 Do you belong to [...] [facility] Occupational Stress Questionnaire Answer Date Recorded [...] COVID-19? No / Unsure 05/28/2021 3:03 PM SURFACE SUPERVISOR documented as of this encounter Miscellaneous Notes * Telephone Encounter - Len Adhikari MD - 05/28/2021 4:13 PM CST Schedule AWV with me in 6 months. ACE SUPERVISOR * Telephone Encounter - Jessica Rahman RN [...] 01/18/2021 0.74 0.52 - 1.04 mg/dL Final ACE SUPERVISOR * Telephone Encounter - Jeet Del Rio RN - 05/28/2021 9:18 AM CST Routing refill request to provider for review/approval because: Labs out of range: creatinine Creatinine Date Value Ref Range Status 05/11/2021 1.18 (H) 0.52 - 1.04 mg/dL Final 01/18/2021 0.74 0.52 - 1.04 mg/dL Final Jeet [place] RN ACE SUPERVISOR documented in this encounter Plan of Treatment Upcoming Encounters Date Type Department Care Team (Late st Contact Info) Description 08/18/2023 3:00 PM SURFACE SUPERVISOR Office Visit [facility] [address] [facility] [address] [place] [address] Katiana Read MD [address] [address] [place] [address] documented as of this encounter Visit Diagnoses [...] as of this encounter Care Teams Field Appraiser Relationship Specialty Start Date End Date Len Adhikari MD PCP - General Family Practice 11/08/16 05/09/22 [place] [address] [place] [address] PCP - General Family Medicine 05/18/22 Jovany Gonzalez MD [facility] 6600 [facility] 605 [place] [address] Orthopedics 02/15/17 Staci Woodward NP [facility] [address] [place], [place] [address] Nurse Practitioner Nurse Practitioner Psych/Mental Health 05/10/17 [place] [address] [place] [address] Assigned PCP 11/14/16 01/22/[address] [facility] [address] [place] [address] Patient Scheduler Dietitian, Registered 07/25/19 Katiana Read MD [address] [facility] 200 [place] [address] Assigned Endocrinology Provider 05/02/20 08/01/21 Roshni Nascimento, RN Personal Advocate & Liaison (PAL) Family Medicine 08/18/20 Kiet Swain MD [address] [place] [address] [address] [place] [address] Referring Physician Psychiatry 09/19/20 Winsome Pike APRN GARLAND MAKER [address] [place] [address] [id number] Nurse Practitioner Psychiatry 09/19/20 Tori Hines [facility] [address] [place] [address] [phone] Forensic Specialist Forensic Specialist - Clinical 09/19/20 Miranda Queen [facility] [address] [place] [address] Pharmacist Pharmacist 11/12/20 Winsome Pike APRN GARLAND MAKER [address] [place] [address] 324994 Assigned Behavioral Health Provider 01/04/21 07/02/22 Marisel Armando MD [address] [place] [address] Gastroenterology 02/05/21 Marisel Armando MD [address] [place] [address] Assigned Gastroenterology Provider 03/08/21 12/24/22 Inderjit Ugalde MD [address] [facility] 300 [place] [address] Assigned Surgical Provider 02/15/21 08/20/22 Wesley Barrett MD 420 [facility] 96 [place] [address] Assigned Neuroscience Provider 05/10/21 Charles Jaramillo PA-C 6545 [facility] 450 [place] [address] Assigned Musculoskeletal Provider 04/26/21 10/15/22 [facility] [address] [place] [address] Assigned MTM Pharmacist 12/05/21 03/26/22 [place] [address] [place] [address] Assigned PCP 01/23/22 05/14/22 [facility] [address] [place] [address] Assigned MTM Pharmacist 04/07/22 05/14/22 [place] [address] [place] [address] Assigned PCP 05/15/22 Katiana Read MD [address] [place] [address] 200 [place] [address] Assigned Endocrinology Provider 06/19/22 [place] [address] [place] [place] [address] [place] [phone] Assigned Behavioral Health Provider 07/03/22 12/31/22 Deena Garza APRN GARLAND MAKER [address] [place] [address] [place] [address] Assigned Pain Medication Provider 07/19/22 10/29/22 [place] [address] [place] [address] Nurse Practitioner Nurse Practitioner 10/18/22 Elham Stack, [facility] [address] [place] [address] Pharmacist Pharmacist 10/19/22 Emerita Potter, [facility] Clinic Police Records Clerk Forensic Specialist - Clinical 10/29/22 11/02/22 [place] [address] [place] [address] Assigned Pain Medication Provider 10/30/22 12/03/22 Michelle Guzman, DPM, Podiatry/Foot and Ankle Surgery [address] [place] [address] Assigned Musculoskeletal Provider 10/16/22 04/08/23 [place] [address] [place] [address] Assigned Pain Medication Provider 12/04/22 04/01/23 [place] [address] [place] [address] Nurse Practitioner Nurse Practitioner 01/17/23 01/17/23 Aubrey Jones MD [address] [place] [address] Cardiovascular Disease 03/28/23 Blanquita Morales Patient Scheduler Diabetes Education 04/25/23 Aubrey Jones MD [address] [place] [address] Assigned Heart and Vascular Provider 05/07/23 documented as of this encounter
--- OUTSIDE RECORDS SUMMARY | 2023-08-03 12:51 | XMS_ITS | Encounter Summary ---
Author Name Unknown Organization [facility] Address [address] [place] [address]. [place] [address] Care Team Providers Care Tradeshow Worker Name Role Phone Len Adhikari MD Primary Care Provider [phone] Jovany Gonzalez MD Unavailable CrissyStaci jeong LENS BLOCK GAUGER Unavailable [phone] Len Adhikari MD Unavailable Reanna Smith RD Unavailable Katiana Read MD Unavailable +[phone] Roshni Nascimento RN Unavailable Unavailable Kiet Swain MD Unavailable [phone] Winsome Pike APRN CLINICAL LABORATORY ASSISTANT Unavailable +[phone] Tori HinesSW Unavailable Miranda Queen [facility] Unavailable Unavailable Winsome Pike APRN CLINICAL LABORATORY ASSISTANT Unavailable [phone] Marisel Armando MD Unavailable Marisel Armando MD Unavailable Inderjit Ugalde MD Unavailable +[phone] Wesley Barrett MD Unavailable +[phone] Charles Jaramillo PA-C Unavailable +[phone] Miranda Queen [facility] Unavailable Unavailable Leeann Rinaldi MD Unavailable Miranda Queen [facility] Unavailable Unavailable Dyan Fuentes MD Primary Care Provider [phone] Dyan Fuentes MD Unavailable + [phone] Katiana Read MD Unavailable +[phone] Meme Singleton PhD Unavailable +[phone] Deena Garza CONSTRUCTION TEACHER CLINICAL LABORATORY ASSISTANT Unavailable +[phone] Mary Del Cid LENS BLOCK GAUGER Unavailable + [phone] Elham Stack [facility] Unavailable +[phone] Emerita Potter [facility] Unavailable +[phone] Mary Del Cid LENS BLOCK GAUGER Unavailable + [phone] Michelle Guzman DPM, Podiatry /Foot and Ankle Surgery Unavailable Dyan Fuentes MD Unavailable +[phone] Mary Del Cid NP Unavailable +[phone] Aubrey Jones MD Unavailable +[phone] Blanquita Morales Unavailable Unavailable Aubrey Jones MD Unavailable + [phone] Encounter Details Date Type Department Care Team (Late st [facility]) Description 05/28/2021 [facility] Medical Advice [address] [address] Caryl Wheeelr, MICHELLE Social History Tobacco Use Types Packs/Day [...] you attend chur ch or adventism services? Never 09/20/2020 Do you belong to any clubs o r organizations such as voodoo groups, unions, fraternal or athletic groups, or [...] Score 2 02/02/2021 [employer] [facility] Occupat ional Health - Occupational Stress [...] slept in a long-term (including now)? No 09/20/2020 Education Answer Date [...] COVID-19? No / Unsure 05/28/2021 3:03 PM ASSOCIATE MANAGER documented as of this encounter Plan of Treatment Upcoming Encounters Date Type Department Care Team (Late st Contact Info) Description 08/18/2023 3:00 PM ASSOCIATE MANAGER Office Visit [facility] [address] [place] [address] Katiana Read MD [address] [place] [address] documented as of this encounter Visit Diagnoses [...] documented as of this encounter Care Teams Tradeshow Worker Relationship Specialty Start Date End Date Len Adhikari MD PCP - General Family Practice 11/08/16 05/09/22 [place] [address] [place] [address] PCP - General Family Medicine 05/18/22 Jovany Gonzalez MD [facility] [address] [facility] 605 [place] [address] Orthopedics 02/15/17 Staci Woodward LENS BLOCK GAUGER [place] [address] [place], [place] [address] Nurse Practitioner Nurse Practitioner Psych/Mental Health 05/10/17 [place] [address] [facility] [place] [address] Assigned PCP 11/14/16 01/22/[address] [facility] [address] [place] [address] Manufacturing Leader Dietitian, Registered 07/25/19 Katiana Read MD [address] [address] Assigned Endocrinology Provider 05/02/20 08/01/21 Roshni Nascimento RN Personal Advocate & Liaison (PAL) Family Medicine 08/18/20 Kiet Swain MD [address] [place] [address] [address] [place] [address] Referring Physician Psychiatry 09/19/20 Winsome Pike APRN CLINICAL LABORATORY ASSISTANT [address] [place] [address] Nurse Practitioner Psychiatry 09/19/20 Tori Hines [facility] [address] [place] [address] Mattress Inspector Mattress Inspector - Clinical 09/19/20 Miranda Queen [facility] [address] [place] [address] Pharmacist Pharmacist 11/12/20 Winsome Pike APRN CLINICAL LABORATORY ASSISTANT [address] [place] [address] Assigned Behavioral Health Provider 01/04/21 07/02/22 Marisel Armando MD [address] [place] [address] Gastroenterology 02/05/21 Marisel Armando MD [address] [place] [address] Assigned Gastroenterology Provider 03/08/21 12/24/22 Inderjit Ugalde MD [address] [place] [address] Assigned Surgical Provider 02/15/21 08/20/22 Wesley Barrett MD 420 [facility] 96 [place] [address] Assigned Neuroscience Provider 05/10/21 Charles Jaramillo PA-C [address] [facility] 450 [place] [address] Assigned Musculoskeletal Provider 04/26/21 10/15/22 Miranda Queen [facility] [address] [place] [address] Assigned MTM Pharmacist 12/05/21 03/26/22 [place] [address] [place] [address] Assigned PCP 01/23/22 05/14/22 Miranda Queen [facility] [address] [place] [address] Assigned MTM Pharmacist 04/07/22 05/14/22 [place] [address] [place] [address] Assigned PCP 05/15/22 Katiana Read MD [address] 200 [place] [address] Assigned Endocrinology Provider 06/19/22 [place] [address] [place] [address] Assigned Behavioral Health Provider 07/03/22 12/31/22 Deena Garza APRN CNP [address] [place] [address] Assigned Pain Medication Provider 07/19/22 10/29/22 [place] [address] [address] [place] [address] Nurse Practitioner Nurse Practitioner 10/18/22 Elham Stack, [facility] [address] [place], [place] [address] Pharmacist Pharmacist 10/19/22 Emerita Potter, [facility] Clinic Etl Database Developer Mattress Inspector - Clinical 10/29/22 11/02/22 [place] [address] [address] [place] [address] Assigned Pain Medication Provider 10/30/22 12/03/22 Michelle Guzman DPM, Podiatry/Foot and Ankle Surgery [address] [place] [address] Assigned Musculoskeletal Provider 10/16/22 04/08/23 [place] [address] [place] [address] Assigned Pain Medication Provider 12/04/22 04/01/23 [place] [address] [address] [place] [address] Nurse Practitioner Nurse Practitioner 01/17/23 01/17/23 Aubrey Jones MD [address] [place] [address] Cardiovascular Disease 03/28/23 Blanquita Morales Manufacturing Leader Diabetes Education 04/25/23 Aubrey Jones MD [address] [place] [address] Assigned Heart and Vascular Provider 05/07/23 documented as of this encounter
--- OUTSIDE RECORDS SUMMARY | 2023-08-03 12:51 | XMS_ITS | Encounter Summary ---
Author Name Unknown Organization [facility] Address [address] [place] [address]. [place] [address] Care Team Providers Care Avionics Installer Name Role Phone Len Adhikari MD Primary Care Provider Jovany Gonzalez MD Unavailable CrissyStaci jeong ELECTRONIC BENCH TECHNICIAN Unavailable [phone] Len Adhikari MD Unavailable [phone] Unavailable Katiana Read MD Unavailable [phone] Jese Doyle MD Unavailable [phone] Roshni Nascimento RN Unavailable Unavailable Kiet Swain MD Unavailable [phone] Winsome Pike APRN PARAPROFESSIONAL AIDE TEACHER Unavailable +[phone] Tori Hines [facility] Unavailable Miranda Queen [facility] Unavailable Unavailable Winsome Pike APRN PARAPROFESSIONAL AIDE TEACHER Unavailable [phone] Marisel Armando MD Unavailable Marisel Armando MD Unavailable Inderjit Ugalde MD Unavailable [phone] Wesley Barrett MD Unavailable [phone] Charles Jaramillo PA-C Unavailable [phone] Miranda Queen [facility] Unavailable Unavailable Leeann Rinaldi MD Unavailable Miranda Queen [facility] Unavailable Unavailable Dyan Fuentes MD Primary Care Provider + [phone] Dyan Fuentes MD Unavailable [phone] Katiana Read MD Unavailable [phone] Meme Singleton PhD Unavailable [phone] Deena Garza MEDIA TRAFFIC MANAGER PARAPROFESSIONAL AIDE TEACHER Unavailable [phone] Mary Del Cid ELECTRONIC BENCH TECHNICIAN Unavailable [phone] Elham Stack [facility] Unavailable [phone] Emerita Potter ADOBE DEVELOPER Unavailable +[phone] Mary Del Cid NP Unavailable [phone] [...] (Late st Contact Info) Description 04/09/2021 Refill [facility] [address] [place] [address] Katiana Read MD [address] [place] [address] Medication Refill Social History Tobacco [...] do you attend chur or denominational services? Never 09/20/2020 Do you belong to [...] Answer Date Recorded PHQ-2 Score 2 02/02/2021 [facility] Questionnaire Answer Date [...] 04/10/2021 2:22 PM CDT [facility]. documented in this encounter Plan of Treatment Upcoming Encounters Date Type Department Care Team (Late st Contact Info) Description 08/18/2023 3:00 PM MANAGER OF OPERATIONS Office Visit [facility] [address] [place] [address] Katiana Read MD [address] [place], [place] [address] documented as of this encounter Visit Diagnoses [...] documented as of this encounter Care Teams Avionics Installer Relationship Specialty Start Date End Date Len Adhikari MD PCP - General Family Practice 11/08/16 05/09/22 [place] [address] [place] [address] PCP - General Family Medicine 05/18/22 Jovany Gonzalez MD [facility] 6600 [facility] 605 [place] [address] Orthopedics 02/15/17 Staci Woodward NP [facility] [address] [place] [address] Nurse Practitioner Nurse Practitioner Psych/Mental Health 05/10/17 [place] [address] [place] [address] Assigned PCP 11/14/16 01/22/[address] [facility] [address] [place] [address] Barbering Instructor Dietitian, Registered 07/25/19 Katiana Read MD [address] [place] [address] Assigned Endocrinology Provider 05/02/20 08/01/21 Jese Doyle MD [address] [place], [place] [address] Assigned Pulmonology Provider 05/02/20 04/11/21 Roshni Nascimento, RN Personal Advocate & Liaison (PAL) Family Medicine 08/18/20 Kiet Swain MD [address] [place] [address] 854234 Referring Physician Psychiatry 09/19/20 Winsome Pike APRN PARAPROFESSIONAL AIDE TEACHER [address] [place] [address] Nurse Practitioner Psychiatry 09/19/20 Tori Hines, [facility] [place] [address] Bag Valver Bag Valver - Clinical 09/19/20 Miranda Queen [facility] [address] [place] [address] Pharmacist Pharmacist 11/12/20 Winsome Pike APRN CNP [address] [address] Assigned Behavioral Health Provider 01/04/21 07/02/22 Marisel Armando MD [address] [place] [address] Gastroenterology 02/05/21 Marisel Armando MD [address] [place] [address] Assigned Gastroenterology Provider 03/08/21 12/24/22 Inderjit Ugalde MD [address] [address] Assigned Surgical Provider 02/15/21 08/20/22 Wesley Barrett MD [address] [place] [address] Assigned Neuroscience Provider 05/10/21 Charles Jaramillo PA-C [address] [address] Assigned Musculoskeletal Provider 04/26/21 10/15/22 Miranda Queen [facility] [address] [place] [address] Assigned MTM Pharmacist 12/05/21 03/26/22 [place] [address] [address] [place] [address] Assigned PCP 01/23/22 05/14/22 Miranda Queen, [facility] [address] [place] [address] Assigned MTM Pharmacist 04/07/22 05/14/22 [place] [address] [place] [address] Assigned PCP 05/15/22 Katiana Read MD [address] [address] Assigned Endocrinology Provider 06/19/22 Meme [place] PhD [address] [place] [address] Assigned Behavioral Health Provider 07/03/22 12/31/22 Deena Garza APRN PARAPROFESSIONAL AIDE TEACHER [address] [place] [address] Assigned Pain Medication Provider 07/19/22 10/29/22 Mary Del Cid, RAFAEL [address] [place] [address] Nurse Practitioner Nurse Practitioner 10/18/22 Elham Stack, [facility] [address] [facility] [address] Pharmacist Pharmacist 10/19/22 Emerita Potter, [facility] Clinic Home Office Claims Examiner Bag Valver - Clinical 10/29/22 11/02/22 Mary Del Cid, RAFAEL [address] [place] [address] Assigned Pain Medication Provider 10/30/22 12/03/22 Michelle Guzman DPM, Podiatry/Foot and Ankle Surgery [address] [place] [address] Assigned Musculoskeletal Provider 10/16/22 04/08/23 [place] [address] [place] [address] Assigned Pain Medication Provider 12/04/22 04/01/23 [place] [address] [address] [place] [address] Nurse Practitioner Nurse Practitioner 01/17/23 01/17/23 Aubrey Jones MD [address] [place] [address] Cardiovascular Disease 03/28/23 Blanquita Morales Barbering Instructor Diabetes Education 04/25/23 Aubrey Jones MD [address] [place] [address] Assigned Heart and Vascular Provider 05/07/23 documented as of this encounter
--- OUTSIDE RECORDS SUMMARY | 2023-08-03 12:51 | XMS_ITS | Encounter Summary ---
Author Name Unknown Organization [facility] Address [address] [place] [address]. [place] [address] Care Team Providers Care Rig Operator Name Role Phone Len Adhikari MD Primary Care Provider [phone] Jovany Gonzalez MD Unavailable CrissyStaci jeong ROLLER Unavailable [phone] Len Adhikari MD Unavailable Reanna Smith RD Unavailable Katiana Read MD Unavailable [phone] Roshni Nascimento RN Unavailable Unavailable Kiet Swain MD Unavailable [phone] Winsome Pike APRN INTEGRATED MARKETING MANAGER Unavailable [phone] Tori HinesSW Unavailable Miranda Queen [facility] Unavailable Unavailable Winsome Pike APRN INTEGRATED MARKETING MANAGER Unavailable [phone] Marisel Armando MD Unavailable Marisel Armando MD Unavailable Inderjit Ugalde MD Unavailable [phone] Wesley Barrett MD Unavailable [phone] Charles Jaramillo PA-C Unavailable +[phone] Miranda Queen [facility] Unavailable Unavailable Leeann Rinaldi MD Unavailable Miranda Queen [facility] Unavailable Unavailable Dyan Fuentes MD Primary Care Provider +[phone] Dyan Fuentes MD Unavailable + [phone] Katiana Read MD Unavailable +[phone] Meme Singleton PhD Unavailable + Deena Garza ELEMENTARY CLASSROOM TEACHER INTEGRATED MARKETING MANAGER Unavailable [phone] Mary Del Cid ROLLER Unavailable + [phone] Elham Stack [facility] Unavailable [phone] Emerita Potter [facility] Unavailable +[phone] Mary Del Cid ROLLER Unavailable +[phone] Michelle Guzman DPM, Podiatry /Foot and Ankle Surgery Unavailable Dyan Fuentes MD Unavailable +[phone] Mary Del Cid NP Unavailable +[phone] Aubrey Jones MD Unavailable +[phone] Blanquita Morales Unavailable Unavailable Aubrey Jones MD Unavailable + [phone] Encounter Details Date Type Department Care Team (Late st [facility]) Description 05/29/2021 [facility] Medical [facility] [address] [place] [address] Roshni Nascimento, RN Social History Tobacco [...] Answer Date Recorded PHQ-2 Score 2 02/02/2021 [facility] of Occupat [...] COVID-19? No / Unsure 05/28/2021 3:03 PM CHARGEMASTER SPECIALIST documented as of this encounter Plan of Treatment Upcoming Encounters Date Type Department Care Team (Late st Contact Info) Description 08/18/2023 3:00 PM CHARGEMASTER SPECIALIST Office Visit [facility] [address] [place] [address] Katiana Read MD [address] [place] [address] documented as of this encounter Visit Diagnoses [...] documented as of this encounter Care Teams Rig Operator Relationship Specialty Start Date End Date Len Adhikari MD PCP - General Family Practice 11/08/16 05/09/22 [place] [address] [place] [address] PCP - General Family Medicine 05/18/22 Jovany Gonzalez MD [facility] 6600 [facility] 605 [place] [address] Orthopedics 02/15/17 Staci Woodward [place] [address] [place], [place] [address] Nurse Practitioner Nurse Practitioner Psych/Mental Health 05/10/17 [place] [address] [place] [address] Assigned PCP 11/14/16 01/22/[address] [facility] [address] [place] [address] Chocolate Temperer Dietitian, Registered 07/25/19 Katiana Read MD [address] [address] Assigned Endocrinology Provider 05/02/20 08/01/21 Roshni Nascimento RN Personal Advocate & Liaison (PAL) Family Medicine 08/18/20 Kiet Swain MD [address] [place] [address] [address] [place] [address] Referring Physician Psychiatry 09/19/20 Winsome Pike APRN INTEGRATED MARKETING MANAGER [address] [place] [address] Nurse Practitioner Psychiatry 09/19/20 Tori Hines [facility] [address] [place] [address] Lithographic Artist Lithographic Artist - Clinical 09/19/20 Miranda Queen [facility] [address] [place] [address] Pharmacist Pharmacist 11/12/20 Winsome Pike APRN INTEGRATED MARKETING MANAGER [address] [place] [address] Assigned Behavioral Health Provider 01/04/21 07/02/22 Marisel Armando MD [address] [place] [address] Gastroenterology 02/05/21 Marisel Armando MD [address] [place] [address] Assigned Gastroenterology Provider 03/08/21 12/24/22 Inderjit Ugalde MD [address] [place] [address] Assigned Surgical Provider 02/15/21 08/20/22 Wesley Barrett MD 420 [facility] 96 [place] [address] Assigned Neuroscience Provider 05/10/21 Charles Jaramillo PA-C [address] [facility] [address] [place] [address] Assigned Musculoskeletal Provider 04/26/21 10/15/22 [facility] [address] [place] [address] Assigned MTM Pharmacist 12/05/21 03/26/22 [place] [address] [place] [address] Assigned PCP 01/23/22 05/14/22 Miranda Queen [facility] [address] [place] [address] Assigned MTM Pharmacist 04/07/22 05/14/22 [place] [address] [place] [address] Assigned PCP 05/15/22 Katiana Read MD [address] 200 [place] [address] Assigned Endocrinology Provider 06/19/22 [place] [address] [place] [address] Assigned Behavioral Health Provider 07/03/22 12/31/22 Deena Garza APRN CNP [address] [place] [address] Assigned Pain Medication Provider 07/19/22 10/29/22 [place] [address] [address] [place] [address] Nurse Practitioner Nurse Practitioner 10/18/22 Elham Stack, [facility] [address] [place], [place] [address] Pharmacist Pharmacist 10/19/22 Emerita Potter, [facility] Clinic Do All Operator Lithographic Artist - Clinical 10/29/22 11/02/22 [place] [address] [address] [place] [address] Assigned Pain Medication Provider 10/30/22 12/03/22 Michelle Guzman DPM, Podiatry/Foot and Ankle Surgery [address] [place] [address] Assigned Musculoskeletal Provider 10/16/22 04/08/23 [place] [address] [place] [address] Assigned Pain Medication Provider 12/04/22 04/01/23 [place] [address] [address] [place] [address] Nurse Practitioner Nurse Practitioner 01/17/23 01/17/23 Aubrey Jones MD [address] [place] [address] Cardiovascular Disease 03/28/23 Blanquita Morales Chocolate Temperer Diabetes Education 04/25/23 Aubrey Jones MD [address] [place] [address] Assigned Heart and Vascular Provider 05/07/23 documented as of this encounter
--- OUTSIDE RECORDS SUMMARY | 2023-08-03 12:52 | XMS_ITS | Encounter Summary ---
Author Name Unknown Organization [facility] Address [address] [place] [address]. [place] [address] Care Team Providers Care Weapons Electrical Engineering Officer Name Role Phone Len Adhikari MD Primary Care Provider Jovany Gonzalez MD Unavailable [phone] CrissyStaci jeong GUEST SERVICES AMBASSADOR Unavailable [phone] Len Adhikari MD Unavailable Reanna Smith RD Unavailable [phone] Katiana Read MD Unavailable [phone] Jese Doyle MD Unavailable [phone] Roshni Nascimento RN Unavailable Unavailable Kiet Swain MD Unavailable [phone] Winsome Pike APRN TEMPLATE INSPECTOR Unavailable +[phone] [facility] Unavailable Miranda Queen [facility] Unavailable Unavailable Winsome Pike APRN TEMPLATE INSPECTOR Unavailable +[phone] Marisel Armando MD Unavailable Marisel Armando MD Unavailable Inderjit Ugalde MD Unavailable [phone] Wesley Barrett MD Unavailable +[phone] Charles Jaramillo PA-C Unavailable [phone] Miranda Queen [facility] Unavailable Unavailable Leeann Rinaldi MD Unavailable Miranda Queen [facility] Unavailable Unavailable Dyan Fuentes MD Primary Care Provider [phone] Dyan Fuentes MD Unavailable +[phone] Katiana Read MD Unavailable [phone] Meme Singleton PhD Unavailable [phone] Deena Garza APRN TEMPLATE INSPECTOR Unavailable +[phone] Mary Del Cid NP Unavailable [phone] Elham Stack [facility] Unavailable +[phone] [facility] Unavailable +[phone] Mary Del Cid NP Unavailable [phone] [...] (Late st Contact Info) Description 01/28/2021 Telephone [facility] [place] [id number] [place] [address] [address] [place] [address] Deena Garza APRN TEMPLATE INSPECTOR [address] [place] [id number] Prior Auth - Medication (Buprenorphine HCl (BELBUCA) [...] often do you attend chur ch or mandaeism services? Never 09/20/2020 Do you [...] points; Administer PHQ-9 if positive 2 01/30/2021 [facility] [place] of Occupat ional Health - Occupational Stress [...] film-APPROVED Approved Dose/Quantity: Reference #: Insurance Company: [employer] - Expected CoPay: CoPay Card Available: Foundation Assistance Needed: Which Pharmacy is filling the prescription (Not needed for infusion/clinic administered): [id number] [place], [place] - [address] [facility] Pharmacy Notified: Yes Patient Notified: Yes Instructed pharmacy to notify patient when script is ready to roll picker/ship. * Telephone Encounter - Magen Queen - 01/28/2021 2:38 PM CDT Images from the original note were not included. Central Prior Authorization Team PA Initiation Medication: Buprenorphine HCl (BELBUCA) 300 MCG FILM buccal film Insurance Company: [employer] - Pharmacy Filling the Rx: [facility] #[id number] - [place], [place] - [address] [facility] Filling Pharmacy Filling Pharmacy Start Date: 01/28/2021 [...] Rationale: ... Insurance Name: Coverage information: Subscriber: [id number] LILI WISEMAN Rel to sub: 02 - Spouse Payor: [id number] Benefit plan: [id number] PREFERREDONE Group number: [id number] Member effective dates: from 07/11/12 Pharmacy Information (if different than what is on RX) Name: ... Phone: ... * Telephone Encounter - Lenka Williamson - 01/28/2021 9:01 AM CDT Images from the original note were not included. EPA REQUEST documented in this encounter Plan of Treatment Upcoming Encounters Date Type Department Care Team (Late st Contact Info) Description 08/18/2023 3:00 PM FLOOR COVERING LAYER Office Visit [facility] [address] [place] [address] Katiana Read MD [address] [place] [address] documented as of this encounter [...] documented as of this encounter Care Teams Weapons Electrical Engineering Officer Relationship Specialty Start Date End Date Len Adhikari MD PCP - General Family Practice 11/08/16 05/09/22 [place] [address] [place] [address] PCP - General Family Medicine 05/18/22 Jovany Gonzalez MD [facility] 66[address] [facility] 605 [place] [address] Orthopedics 02/15/17 Staci Woodward, RA[place] [address] [place] [address] Nurse Practitioner Nurse Practitioner Psych/Mental Health 05/10/17 [place] [address] [facility] [place] [address] Assigned PCP 11/14/16 01/22/[address] [place] [address] [place] [address] Pathologist Dietitian, Registered 07/25/19 Katiana Read MD [address] [place] [address] 200 [place] [address] Assigned Endocrinology Provider 05/02/20 08/01/21 Jese Doyle MD [address] [place] [address] Assigned Pulmonology Provider 05/02/20 04/11/21 Roshni Nascimento, RN Personal Advocate & Liaison (PAL) Family Medicine 08/18/20 Kiet Swain MD [address] [place] [address] [place] [address] [phone] Referring Physician Psychiatry 09/19/20 Winsome Pike APRN TEMPLATE INSPECTOR [address] [place] [address] 873034 Nurse Practitioner Psychiatry 09/19/[address] [facility] [address] [place] [address] [phone] Student Education Specialist Student Education Specialist - Clinical 09/19/20 Miranda Queen [facility] [address] [place] [address] Pharmacist Pharmacist 11/12/20 Winsome Pike APRN TEMPLATE INSPECTOR [address] [place] [address] Assigned Behavioral Health Provider 01/04/21 07/02/22 Marisel Armando MD [address] [place] [address] Gastroenterology 02/05/21 Marisel Armando MD [address] [place] [address] Assigned Gastroenterology Provider 03/08/21 12/24/22 Inderjit Ugalde MD [address] [address] Assigned Surgical Provider 02/15/21 08/20/22 Wesley Barrett MD [address] [facility] 96 [place] [address] Assigned Neuroscience Provider 05/10/21 Charles Jaramillo PA-C 6545 [facility] 450 [place] [address] Assigned Musculoskeletal Provider 04/26/21 10/15/22 Miranda Queen [facility] [address] [place] [address] Assigned MTM Pharmacist 12/05/21 03/26/22 [place] [address] [place] [address] Assigned PCP 01/23/22 05/14/22 Miranda Queen [facility] [address] [place] [address] Assigned MTM Pharmacist 04/07/22 05/14/22 [place] [address] [place] [address] Assigned PCP 05/15/22 Katiana Read MD [address] [place] [address] [address] [place] [address] Assigned Endocrinology Provider 06/19/22 [place] [address] [place] [address] Assigned Behavioral Health Provider 07/03/22 12/31/22 Deena Garza, PATRIOT MISSILE AIR DEFENSE ARTILLERY TEMPLATE INSPECTOR [address] [place] [address] Assigned Pain Medication Provider 07/19/22 10/29/22 [place] [address] [place] [address] Nurse Practitioner Nurse Practitioner 10/18/22 Elham Stack, [facility] [address] [place], [place] [address] Pharmacist Pharmacist 10/19/22 Emerita Potter, [facility] Clinic Petal Shaper Hand Student Education Specialist - Clinical 10/29/22 11/02/22 [place] [address] [place] [address] Assigned Pain Medication Provider 10/30/22 12/03/22 Michelle Guzman, DPM, Podiatry/Foot and Ankle Surgery [address] [place] [address] Assigned Musculoskeletal Provider 10/16/22 04/08/23 [place] [address] [place] [address] Assigned Pain Medication Provider 12/04/22 04/01/23 [place] [address] [place] [address] Nurse Practitioner Nurse Practitioner 01/17/23 01/17/23 Aubrey Jones MD [address] [place] [address] Cardiovascular Disease 03/28/23 Blanquita Morales Pathologist Diabetes Education 04/25/23 Aubrey Jones MD [address] [place] [address] Assigned Heart and Vascular Provider 05/07/23 documented as of this encounter
--- OUTSIDE RECORDS SUMMARY | 2023-08-03 12:52 | XMS_ITS | Encounter Summary ---
Author Name Unknown Organization [facility] Address [address] [place] [address]. [place] [address] Care Team Providers Care Broom Worker Name Role Phone Len Adhikari MD Primary Care Provider Jovany Gonzalez MD Unavailable CrissyStaci jeong INDEPENDENT JEWELER Unavailable [phone] Len Adhikari MD Unavailable [phone] Unavailable Katiana Read MD Unavailable [phone] Jese Doyle MD Unavailable [phone] Roshni Nascimento RN Unavailable Unavailable Kiet Swain MD Unavailable [phone] Winsome Pike APRN TAKE AWAY MAN Unavailable [phone] Tori Hines [facility] Unavailable Miranda Queen [facility] Unavailable Unavailable Winsome Pike APRN TAKE AWAY MAN Unavailable [phone] Marisel Armando MD Unavailable Marisel Armando MD Unavailable Inderjit Ugalde MD Unavailable [phone] Wesley Barrett MD Unavailable [phone] Chrales Jaramillo PA-C Unavailable [phone] Miranda Queen [facility] Unavailable Unavailable Leeann Rinaldi MD Unavailable Miranda Queen [facility] Unavailable Unavailable Dyan Fuentes MD Primary Care Provider [phone] Dyan Fuentes MD Unavailable [phone] Katiana Read MD Unavailable [phone] Meme Singleton PhD Unavailable [phone] Deena Garza CARD HANGER TAKE AWAY MAN Unavailable [phone] Mary Del Cid INDEPENDENT JEWELER Unavailable + [phone] Elham Stack [facility] Unavailable [phone] Emerita Potter GLOBE CLEANER Unavailable [phone] Mary Del Cid NP Unavailable [phone] [...] Contact Info) Description 03/06/2021 MyC Medical Advice [facility] [address] [place] [address] [place] [address] [place] [address] Outreach (PAL) Social History Tobacco [...] How often do you attend chur or yazidi services? Never 09/20/2020 Do you [...] 02/02/2021 [facility] - Occupational Stress Questionnaire Answer Date [...] st Contact Info) Description 08/18/2023 3:00 PM DRILL PRESS OPERATOR HELPER Office Visit [facility] [address] [place] [address] Katiana Read MD [address] [place] [address] documented as of this encounter [...] documented as of this encounter Care Teams Broom Worker Relationship Specialty Start Date End Date Len Adhikari MD PCP - General Family Practice 11/08/16 05/09/22 [place] [address] [place] [address] PCP - General Family Medicine 05/18/22 Jovany Gonzalez MD [facility] 6600 [facility] [address] [place], [place] 6[address] Orthopedics 02/15/17 Staci Woodward NP [facility] [address] [place], [place] 95317337 Nurse Practitioner Nurse Practitioner Psych/Mental Health 05/10/17 [place] [address] [place] [address] Assigned PCP 11/14/16 01/22/[address] [facility] [address] [place] [address] Channel Supervisor Dietitian, Registered 07/25/19 Katiana Read MD [address] [facility] [address] [place], [place] [address] Assigned Endocrinology Provider 05/02/20 08/01/21 Jese Doyle MD [address] [place], [place] 35514[address] Assigned Pulmonology Provider 05/02/20 04/11/21 Roshni Nascimento RN Personal Advocate & Liaison (PAL) Family Medicine 08/18/20 Kiet Swain MD [address] [place] [address] 660424 Referring Physician Psychiatry 09/19/20 Winsome Pike APRN TAKE AWAY MAN [address] [place] [address] [phone] Nurse Practitioner Psychiatry 09/19/20 Tori Hines [facility] [address] [place] [address] 012154 Spoon Maker Spoon Maker - Clinical 09/19/20 Miranda Queen RPH [address] [place] [address] Pharmacist Pharmacist 11/12/20 Winsome Pike APRN TAKE AWAY MAN [address] [place] [address] [phone] Assigned Behavioral Health Provider 01/04/21 07/02/22 Marisel Armando MD [address] [place] [address] Gastroenterology 02/05/21 Marisel Armando MD [address] [place] [address] Assigned Gastroenterology Provider 03/08/21 12/24/22 Inderjit Ugalde MD [address] [facility] 300 [place] [address] Assigned Surgical Provider 02/15/21 08/20/22 Wesley Barrett MD 420 [facility] 96 [place] [address] Assigned Neuroscience Provider 05/10/21 Charles Jaramillo PA-C [address] [address] Assigned Musculoskeletal Provider 04/26/21 10/15/22 Miranda Queen [facility] [address] [place] [address] Assigned MTM Pharmacist 12/05/21 03/26/22 [place] [address] [place] [address] Assigned PCP 01/23/22 05/14/22 Miranda Queen [facility] [address] [place] [address] Assigned MTM Pharmacist 04/07/22 05/14/22 [place] [address] [address] Assigned PCP 05/15/22 Katiana Read MD [address] [facility] [address] [place] [address] Assigned Endocrinology Provider 06/19/22 [place] [address] [place] [address] Assigned Behavioral Health Provider 07/03/22 12/31/22 Deena Garza APRN TAKE AWAY MAN [address] [place] [address] Assigned Pain Medication Provider 07/19/22 10/29/22 Mary Del Cid, RAFAEL [address] [place] [address] Nurse Practitioner Nurse Practitioner 10/18/22 Elham Stack, [facility] [address] [place] [address] Pharmacist Pharmacist 10/19/22 Emerita Potter, [facility] Clinic Siebel Crm Developer Spoon Maker - Clinical 10/29/22 11/02/22 [place] [address] [address] [place] [address] Assigned Pain Medication Provider 10/30/22 12/03/22 Michelle Guzman, DPM, Podiatry/Foot and Ankle Surgery [address] [place] [address] Assigned Musculoskeletal Provider 10/16/22 04/08/23 [place] [address] [place] [address] Assigned Pain Medication Provider 12/04/22 04/01/23 [place] [address] [place] [address] Nurse Practitioner Nurse Practitioner 01/17/23 01/17/23 Aubrey Jones MD [address] [place] [address] Cardiovascular Disease 03/28/23 Blanquita Morales Channel Supervisor Diabetes Education 04/25/23 Aubrey Jones MD [address] [place] [address] Assigned Heart and Vascular Provider 05/07/23 documented as of this encounter
--- OUTSIDE RECORDS SUMMARY | 2023-08-03 12:52 | XMS_ITS | Encounter Summary ---
Author Name Unknown Organization [facility] Address [address] [place] [address]. [place] [address] Care Team Providers Care Bulk Station Operator Name Role Phone Len Adhikari MD Primary Care Provider [phone] Jovany Gonzalez MD Unavailable CrissyStaci jeong DRIVE IN THEATER ATTENDANT Unavailable [phone] Len Adhikari MD Unavailable Reanna Smith RD Unavailable Katiana Read MD Unavailable [phone] Jese Doyle MD Unavailable [phone] Roshni Nascimento RN Unavailable Unavailable Kiet Swain MD Unavailable [phone] Winsome Pike APRN EARRINGS FABRICATOR Unavailable +[phone] Tori Hines [facility] Unavailable Miranda Qeuen [facility] Unavailable Unavailable Winsome Pike APRN EARRINGS FABRICATOR Unavailable [phone] Marisel Armando MD Unavailable Marisel Armando MD Unavailable Inderjit Ugalde MD Unavailable [phone] Wesley Barrett MD Unavailable [phone] Charles Jaramillo PA-C Unavailable [phone] Miranda Queen [facility] Unavailable Unavailable Leeann Rinaldi MD Unavailable Miranda Queen [facility] Unavailable Unavailable Dyan Fuentes MD Primary Care Provider [phone] Dyan Fuentes MD Unavailable [phone] Katiana Read MD Unavailable [phone] Meme Singleton PhD Unavailable +[phone] Deena Garza FISCAL SERVICES DIRECTOR EARRINGS FABRICATOR Unavailable [phone] Mary Del Cid NP Unavailable + [phone] Elham Stack [facility] Unavailable [phone] Emerita Potter SALES APPOINTMENT COORDINATOR Unavailable [phone] Mary Del Cid NP Unavailable + [phone] Michelle Guzman DPM, Podiatry /Foot and Ankle Surgery Unavailable Dyan Fuentes MD Unavailable +[phone] Mary Del Cid NP Unavailable [phone] Aubrey Jones MD Unavailable [phone] Blanquita Morales Unavailable Unavailable Aubrey Jones MD Unavailable [phone] Encounter Details Date Type Department Care Team (Late st Contact Info) Description 04/03/2021 [facility] [address] [place] [address] Roshni Nascimento, RN Social History [...] attend chur ch or latter day services? Never 09/20/2020 Do you belong to [...] Answer Date Recorded PHQ-2 Score 2 02/02/2021 [facility] of Occupat ional Health - Occupational Stress [...] in a long term (including now)? No 09/20/2020 Education Answer Date [...] st Contact Info) Description 08/18/2023 3:00 PM STOCK CHECKER Office Visit [facility] [address] [place] [address] Katiana Read MD [address] [place], [place] [address] documented as of this encounter Visit Diagnoses [...] documented as of this encounter Care Teams Bulk Station Operator Relationship Specialty Start Date End Date Len Adhikari MD PCP - General Family Practice 11/08/16 05/09/22 [place] [address] [place] [address] PCP - General Family Medicine 05/18/22 Joavny Gonzalez MD [facility] 6600 [facility] 605 [place], [place] 14[address] Orthopedics 02/15/17 Staci Woodward, DRIVE IN THEATER ATTENDANT [facility] [address] [place], [place] [address] Nurse Practitioner Nurse Practitioner Psych/Mental Health 05/10/17 [place] [address] [place] [address] Assigned PCP 11/14/16 01/22/[address] [facility] [address] [place] [address] Bacteriologist Pharmaceutical Dietitian, Registered 07/25/19 Katiana Read MD [address] [place] [address] 655640 Assigned Endocrinology Provider 05/02/20 08/01/21 Jese Doyle MD [address] [place] [address] [phone] Assigned Pulmonology Provider 05/02/20 04/11/21 Roshni Nascimento, RN Personal Advocate & Liaison (PAL) Family Medicine 08/18/20 Kiet Swain MD [address] [place] [address] 365604 Referring Physician Psychiatry 09/19/20 Winsome Pike APRN EARRINGS FABRICATOR [address] [place] [address] 200514 Nurse Practitioner Psychiatry 09/19/20 Tori Hines, [facility] [address] [place] [address] [phone] Salvationist Salvationist - Clinical 09/19/20 Miranda Queen [facility] [address] [place] [address] Pharmacist Pharmacist 11/12/20 Winsome Pike APRN EARRINGS FABRICATOR [address] [place] [address] 894454 Assigned Behavioral Health Provider 01/04/21 07/02/22 Marisel Armando MD [address] [place] [address] 628735 Gastroenterology 02/05/21 Marisel Armando MD 909 [place] [address] Assigned Gastroenterology Provider 03/08/21 12/24/22 Inderjit Ugalde MD [address] [place] [address] Assigned Surgical Provider 02/15/21 08/20/22 Wesley Barrett MD 420 [facility] 96 [place] [address] Assigned Neuroscience Provider 05/10/21 Charles Jaramillo PA-C 6545 [facility] 450 [place] [address] Assigned Musculoskeletal Provider 04/26/21 10/15/22 Miranda Queen [facility] [address] [place] [address] Assigned MTM Pharmacist 12/05/21 03/26/22 [place] [address] [place] [address] Assigned PCP 01/23/22 05/14/22 Miranda Queen [facility] [address] [place] [address] Assigned MTM Pharmacist 04/07/22 05/14/22 [place] [address] [place] [address] Assigned PCP 05/15/22 Katiana Read MD [address] [place] [address] Assigned Endocrinology Provider 06/19/22 [place] [address] [place] [address] Assigned Behavioral Health Provider 07/03/22 12/31/22 Deena Garza APRN EARRINGS FABRICATOR [address] [place] [address] Assigned Pain Medication Provider 07/19/22 10/29/22 Mary Del Cid, RAFAEL [address] [place] [address] Nurse Practitioner Nurse Practitioner 10/18/22 Elham Stack, [facility] [address] [place] [address] Pharmacist Pharmacist 10/19/22 Emerita Potter, [facility] Clinic Certified Prosthetist Vice President Salvationist - Clinical 10/29/22 11/02/22 [place] [address] [place] [address] Assigned Pain Medication Provider 10/30/22 12/03/22 Michelle Guzman DPM, Podiatry/Foot and Ankle Surgery [address] [facility] [place] [address] Assigned Musculoskeletal Provider 10/16/22 04/08/23 [place] [address] [place] [address] Assigned Pain Medication Provider 12/04/22 04/01/23 [place] [address] [place] [address] Nurse Practitioner Nurse Practitioner 01/17/23 01/17/23 Aubrey Jones MD [address] [place] [address] Cardiovascular Disease 03/28/23 Blanquita Morales Bacteriologist Pharmaceutical Diabetes Education 04/25/23 Aubrey Jones MD [address] [place] [address] Assigned Heart and Vascular Provider 05/07/23 documented as of this encounter
--- OUTSIDE RECORDS SUMMARY | 2023-08-03 12:52 | XMS_ITS | Encounter Summary ---
Author Name Unknown Organization [place] Address [address] [place] [address]. [place] [address] Care Team Providers Care Glassblower Name Role Phone Len Adhikari MD Primary Care Provider [phone] Jovany Gonzalez MD Unavailable CrissyStaci jeong CARE DIRECTOR RN Unavailable [phone] Len Adhikari MD Unavailable Reanna Smith RD Unavailable [phone] Katiana Read MD Unavailable [phone] Jese Doyle MD Unavailable [phone] Roshni Nascimento RN Unavailable Unavailable Kiet Swain MD Unavailable [phone] Winsome Pike APRN MANUFACTURING TEACHER Unavailable +[phone] Tori Hines [facility] Unavailable Miranda Queen [facility] Unavailable Unavailable Winsome Pike APRN MANUFACTURING TEACHER Unavailable [phone] Marisel Armando MD Unavailable Marisel Armando MD Unavailable Inderjit Ugalde MD Unavailable [phone] Wesley Barrett MD Unavailable [phone] Charles Jaramillo PA-C Unavailable [phone] Miranda Queen [facility] Unavailable Unavailable Leeann Rinaldi MD Unavailable Miranda Queen [facility] Unavailable Unavailable Dyan Fuentes MD Primary Care Provider [phone] Dyan Fuentes MD Unavailable [phone] Katiana Read MD Unavailable [phone] Meme Singleton PhD Unavailable [phone] Deena Gazra FINANCIAL CENTER MANAGER MANUFACTURING TEACHER Unavailable +[phone] Mary Del Cid CARE DIRECTOR RN Unavailable + [phone] Elham Stack [facility] Unavailable +[phone] Emerita Potter ROD MILL TENDER Unavailable [phone] Mary Del Cid NP Unavailable + [phone] Michelle Guzman DPM, Podiatry /Foot and Ankle Surgery Unavailable Dyan Fuentes MD Unavailable [phone] Mary Del Cid NP Unavailable [phone] Aubrey Jones MD Unavailable [phone] Blanquita Morales Unavailable Unavailable Aubrey Jones MD Unavailable [phone] Encounter Details Date Type Department Care Team (Late st Contact Info) Description 03/29/2021 MyC Medical Advice [facility] [address] [place] [address] [place] [address] [place] [address] Social History Tobacco Use Types [...] Answer Date Recorded PHQ-2 Score 2 [facility] Answer Date [...] st Contact Info) Description 08/18/2023 3:00 PM USABILITY ARCHITECT Office Visit [facility] [address] [place] [address] Katiana Read MD [address] [place] [address] documented as of this encounter Visit Diagnoses [...] documented as of this encounter Care Teams Glassblower Relationship Specialty Start Date End Date Len Adhikari MD PCP - General Family Practice 11/08/16 05/09/22 [place] [address] [place] [address] PCP - General Family Medicine 05/18/22 Jovany Gonzalez MD [facility] [address] [facility] [address] [place], [place] 5720[address] Orthopedics 02/15/17 Staci Woodward, CARE DIRECTOR RN [facility] [address] [place], [place] 076[address] Nurse Practitioner Nurse Practitioner Psych/Mental Health 05/10/17 [place] [address] [facility] [place] [address] Assigned PCP 11/14/16 01/22/22 Reanna Smith, [facility] [address] [place] [address] Set O Type Operator Dietitian, Registered 07/25/19 Katiana Read MD [address] [place] [address] Assigned Endocrinology Provider 05/02/20 08/01/21 Jese Doyle MD [address]09 [place], [place] 66[address] Assigned Pulmonology Provider 05/02/20 04/11/21 Roshni Nascimento, RN Personal Advocate & Liaison (PAL) Family Medicine 08/18/20 Kiet Swain MD [address] [place] [address] [id number] Referring Physician Psychiatry 09/19/20 Winsome Pike APRN MANUFACTURING TEACHER [address] [place] [address] [phone] Nurse Practitioner Psychiatry 09/19/20 Tori Hines [facility] [address] [place] [address] [phone] Derrick Man Derrick Man - Clinical 09/19/20 Miranda Queen [facility] [address] [place] [address] Pharmacist Pharmacist 11/12/20 Winsome Pike APRN MANUFACTURING TEACHER [address] [place] [address] [phone] Assigned Behavioral Health Provider 01/04/21 07/02/22 Marisel Armando MD [address] [place] [address] Gastroenterology 02/05/21 Marisel Armando MD [address] [place] [address] Assigned Gastroenterology Provider 03/08/21 12/24/22 Inderjit Ugalde MD [address] [facility] 300 [place] [address] Assigned Surgical Provider 02/15/21 08/20/22 Wesley Barrett MD [address] [place] [address] 96 [place] [address] Assigned Neuroscience Provider 05/10/21 Charles Jaramillo PA-C [address] [address] Assigned Musculoskeletal Provider 04/26/21 10/15/22 Miranda Queen [facility] [address] [place] [address] Assigned MTM Pharmacist 12/05/21 03/26/22 [place] [address] [place] [address] Assigned PCP 01/23/22 05/14/22 Miranda Queen [facility] [address] [place] [address] Assigned MTM Pharmacist 04/07/22 05/14/22 [place] [address] [place] [address] Assigned PCP 05/15/22 Katiana Read MD [address] [facility] [address] [place], [place] 520320 Assigned Endocrinology Provider 06/19/22 [place] [address] [place] [address] Assigned Behavioral Health Provider 07/03/22 12/31/22 Deena Garza, FINANCIAL CENTER MANAGER MANUFACTURING TEACHER [address] [place] [place] [address] Assigned Pain Medication Provider 07/19/22 10/29/22 Mary Del Cid, RAFAEL [address] [facility] [place] [address] Nurse Practitioner Nurse Practitioner 10/18/22 Elham Stack, [facility] [address] [facility] [place], [place] [address] Pharmacist Pharmacist 10/19/22 Emerita Potter, [facility] Clinic Baking Assistant Derrick Man - Clinical 10/29/22 11/02/22 [place] [address] [place] [address] Assigned Pain Medication Provider 10/30/22 12/03/22 Michelle Guzman, DPM, Podiatry/Foot and Ankle Surgery [address] [place] [address] Assigned Musculoskeletal Provider 10/16/22 04/08/23 [place] [address] [place] [address] Assigned Pain Medication Provider 12/04/22 04/01/23 [place] [address] [place] [address] Nurse Practitioner Nurse Practitioner 01/17/23 01/17/23 Aubrey Jones MD [address] [place] [address] Cardiovascular Disease 03/28/23 Blanquita Morales Set O Type Operator Diabetes Education 04/25/23 Aubrey Jones MD [address] [place] [address] Assigned Heart and Vascular Provider 05/07/23 documented as of this encounter
--- OUTSIDE RECORDS SUMMARY | 2023-08-03 12:52 | XMS_ITS | Encounter Summary ---
Author Name Unknown Organization [place] Address [address] [place] [address]. [place] [address] Care Team Providers Care Dietary Assistant Name Role Phone Len Adhikari MD Primary Care Provider Jovany Gonzalez MD Unavailable CrissyStaci jeong ASSET AVAILABILITY LEADER Unavailable [phone] Len Adhikari MD Unavailable Reanna Smith RD Unavailable Katiana Read MD Unavailable [phone] Jese Doyle MD Unavailable [phone] Roshni Nascimento RN Unavailable Unavailable Kiet Swain MD Unavailable [phone] Winsome Pike APRN PHYSICAL METEOROLOGIST Unavailable [phone] Tori Hines [facility] Unavailable Miranda Queen [facility] Unavailable Unavailable Winsome Pike APRN PHYSICAL METEOROLOGIST Unavailable [phone] Marisel Armando MD Unavailable Marisel Armando MD Unavailable Inderjit Ugalde MD Unavailable [phone] Wesley Barrett MD Unavailable [phone] Charles Jaramillo PA-C Unavailable [phone] Miranda Queen [facility] Unavailable Unavailable Leeann Rinaldi MD Unavailable Miranda Queen [facility] Unavailable Unavailable Dyan Fuentes MD Primary Care Provider [phone] Dyan Fuentes MD Unavailable [phone] Katiana Read MD Unavailable [phone] Meme Singleton PhD Unavailable [phone] Deena Garza BUSINESS MANAGER COLLEGE OR UNIVERSITY PHYSICAL METEOROLOGIST Unavailable [phone] Mary Del Cid ASSET AVAILABILITY LEADER Unavailable [phone] Elham Stack [facility] Unavailable [phone] Emerita Potter FLYER REPAIRER Unavailable [phone] Mary Del Cid NP Unavailable [phone] [...] (Late st Contact Info) Description 02/03/[address] [place] [address] [place] [address] [place] [address] Medication Refill Social History Tobacco [...] How often do you attend chur or adventism services? Never 09/20/2020 Do you [...] Answer Date Recorded PHQ-2 Score 2 02/02/2021 [facility] - Occupational Stress Questionnaire Answer Date [...] 02/03/2021 10:14 AM CDT Prescription approved [facility] Refill Protocol. Carmel Gongora RN documented in this encounter Plan of Treatment Upcoming Encounters Date Type Department Care Team (Late st Contact Info) Description 08/18/2023 3:00 PM CHEMISTRY INSTRUCTOR Office Visit [facility] [address] [place] [address] Katiana Read MD [address] [place] [address] documented as of this encounter Visit Diagnoses [...] as of this encounter Care Teams Dietary Assistant Relationship Specialty Start Date End Date Len Adhikari MD PCP - General Family Practice 11/08/16 05/09/22 [place] [address] [place] [address] PCP - General Family Medicine 05/18/22 Jovany Gonzalez MD [facility] [address] [facility] [address] [place] [address] Orthopedics 02/15/17 Staci Woodward ASSET AVAILABILITY LEADER [facility] [address] [place] [address] Nurse Practitioner Nurse Practitioner Psych/Mental Health 05/10/17 [place] [address] [facility] [place] [address] Assigned PCP 11/14/16 01/22/22 Reanna Smith, RD [facility] [address] [place] [address] Home School Teacher Dietitian, Registered 07/25/19 Katiana Read MD [address] [place] [address] 415300 Assigned Endocrinology Provider 05/02/20 08/01/21 Jese Doyle MD 909 [place] [address] Assigned Pulmonology Provider 05/02/20 04/11/21 Roshni Nascimento, RN Personal Advocate & Liaison (PAL) Family Medicine 08/18/20 Kiet Swain MD [address] [place] [address] [id number] Referring Physician Psychiatry 09/19/20 Winsome Pike APRN PHYSICAL METEOROLOGIST [facility] [address] [address] Nurse Practitioner Psychiatry 09/19/20 Tori Hines, [facility] [address] [place] [address] Rehabilitation Teacher Rehabilitation Teacher - Clinical 09/19/20 Miranda Queen [facility] [address] [place] [address] Pharmacist Pharmacist 11/12/20 Winsome Pike APRN PHYSICAL METEOROLOGIST [facility] [address] 507614 Assigned Behavioral Health Provider 01/04/21 07/02/22 Marisel Armando MD [address] [place] [address] 386765 Gastroenterology 02/05/21 Marisel Armando MD [address] [place] [address] 885315 Assigned Gastroenterology Provider 03/08/21 12/24/22 Inderjit Ugalde MD [address] [facility] 300 [place], [place] 402[address] Assigned Surgical Provider 02/15/21 08/20/22 Wesley Barrett MD 420 [facility] 96 [place], [place] 309665 Assigned Neuroscience Provider 05/10/21 Charles Jaramillo PA-C [address] [address] Assigned Musculoskeletal Provider 04/26/21 10/15/22 Miranda Queen R[facility] [address] [place] [address] Assigned MTM Pharmacist 12/05/21 03/26/22 [place] [address] [place] [address] Assigned PCP 01/23/22 05/14/22 Miranda Queen [facility] [address] [place] [address] Assigned MTM Pharmacist 04/07/22 05/14/22 [place] [address] [place] [address] Assigned PCP 05/15/22 Katiana Read MD [address] [place] [address] Assigned Endocrinology Provider 06/19/22 [place] [address] [place] [address] Assigned Behavioral Health Provider 07/03/22 12/31/22 Deena Garza, BUSINESS MANAGER COLLEGE OR UNIVERSITY PHYSICAL METEOROLOGIST [address] [place] [address] Assigned Pain Medication Provider 07/19/22 10/29/22 Mary Del Cid, RAFAEL [address] [place] [address] Nurse Practitioner Nurse Practitioner 10/18/22 Elham Stack, [facility] [address] [place] [address] Pharmacist Pharmacist 10/19/22 Emerita Potter, [facility] Clinic Director Of Patient Care Rehabilitation Teacher - Clinical 10/29/22 11/02/22 [place] [address] [address] [place] [address] Assigned Pain Medication Provider 10/30/22 12/03/22 Michelle Guzman, DPM, Podiatry/Foot and Ankle Surgery [address] [place] [address] Assigned Musculoskeletal Provider 10/16/22 04/08/23 [place] [address] [place] [address] Assigned Pain Medication Provider 12/04/22 04/01/23 [place] [address] [address] [place] [address] Nurse Practitioner Nurse Practitioner 01/17/23 01/17/23 Aubrey Jones MD [address] [place] [address] Cardiovascular Disease 03/28/23 Blanquita Morales Home School Teacher Diabetes Education 04/25/23 Aubrey Jones MD [address] [place] [address] Assigned Heart and Vascular Provider 05/07/23 documented as of this encounter
--- OUTSIDE RECORDS SUMMARY | 2023-08-03 12:52 | XMS_ITS | Encounter Summary ---
Author Name Unknown Organization [place] Address [address] [place] [address]. [place] [address] Care Team Providers Care Central Office Trouble Shooter Name Role Phone Len Adhikari MD Primary Care Provider Jovany Gonzalez MD Unavailable CrissyStaci jeong SKIMMER Unavailable [phone] Len Adhikari MD Unavailable Reanna Smith RD Unavailable [phone] Katiana Read MD Unavailable [phone] Jese Doyle MD Unavailable [phone] Roshni Nascimento RN Unavailable Unavailable Kiet Swain MD Unavailable [phone] Winsome Pike APRN VICE PRESIDENT OF TALENT ACQUISITION Unavailable [phone] Tori Hines [facility] Unavailable Miranda Queen [facility] Unavailable Unavailable Winsome Pike APRN VICE PRESIDENT OF TALENT ACQUISITION Unavailable [phone] Marisel Armando MD Unavailable Marisel Armando MD Unavailable Inderjit Ugalde MD Unavailable [phone] Wesley Barrett MD Unavailable [phone] Charles Jaramillo PA-C Unavailable [phone] Miranda Queen [facility] Unavailable Unavailable Leeann Rinaldi MD Unavailable Miranda Queen [facility] Unavailable Unavailable Dyan Fuentes MD Primary Care Provider [phone] Dyan Fuentes MD Unavailable [phone] Katiana Read MD Unavailable [phone] Meme Singleton PhD Unavailable [phone] Deena Garza JEWELRY DRILLING MACHINE OPERATOR VICE PRESIDENT OF TALENT ACQUISITION Unavailable +[phone] Mary Del Cid SKIMMER Unavailable + [phone] Elham Stack [facility] Unavailable [phone] Emerita Potter LINE HAUL TRUCK DRIVER Unavailable [phone] Mary Del Cid NP Unavailable [phone] [...] Team (Late st Contact Info) Description 03/09/2021 [facility] [address] [place] [address] [place] [address] [place] [address] Refill Request (risperiDONE (RISPERDAL M-TABS) [...] you attend chur ch or faith services? Never 09/20/2020 Do you [...] Answer Date Recorded PHQ-2 Score 2 02/02/2021 [facility] - [...] st Contact Info) Description 08/18/2023 3:00 PM INSEAM TRIMMER Office Visit [facility] [address] [facility] [address] [place] [address] Katiana Read MD [address] [place], [place] [address] documented as of this encounter Visit Diagnoses [...] as of this encounter Care Teams Central Office Trouble Shooter Relationship Specialty Start Date End Date Len Adhikari MD PCP - General Family Practice 11/08/16 05/09/22 [place] [address] [place] [address] PCP - General Family Medicine 05/18/22 Jovany Gonzalez MD [facility] [address] [facility] 605 [place] [address] Orthopedics 02/15/17 Staci Woodward, SKIMMER [place] [address] [place] [address] Nurse Practitioner Nurse Practitioner Psych/Mental Health 05/10/17 [place] [address] [place] [address] Assigned PCP 11/14/16 01/22/[address] [place] [address] [place] [address] Ore Sampler Dietitian, Registered 07/25/19 Katiana Read MD [address] [place] [address] 200 [place] [address] Assigned Endocrinology Provider 05/02/20 08/01/21 Jese Doyle MD 909 [place] [address] Assigned Pulmonology Provider 05/02/20 04/11/21 Roshni Nascimento, RN Personal Advocate & Liaison (PAL) Family Medicine 08/18/20 Kiet Swain MD 2450 [facility] [address] [place], [place] [address] Referring Physician Psychiatry 09/19/20 Winsome Pike APRN VICE PRESIDENT OF TALENT ACQUISITION [facility] [address] 414[address] Nurse Practitioner Psychiatry 09/19/20 Tori Hines, [facility] [address]50 [place], [place] [address] Hazardous Substances Engineer Hazardous Substances Engineer - Clinical 09/19/20 Miranda Queen [facility] [address] [place] [address] Pharmacist Pharmacist 11/12/20 Winsome Pike APRN VICE PRESIDENT OF TALENT ACQUISITION [facility] [address] 538014 Assigned Behavioral Health Provider 01/04/21 07/02/22 Marisel Armando MD [address] [place] [address] 429375 Gastroenterology 02/05/21 Marisel Armando MD [address] [place] [address] 279515 Assigned Gastroenterology Provider 03/08/21 12/24/22 Inderjit Ugalde MD [address] [facility] 300 [place], [place] 806777 Assigned Surgical Provider 02/15/21 08/20/22 Wesley Barrett MD [address] [place] [address] 172735 Assigned Neuroscience Provider 05/10/21 Charles Jaramillo PA-C [address] 402527 Assigned Musculoskeletal Provider 04/26/21 10/15/22 [facility] [address] [place] [address] Assigned MTM Pharmacist 12/05/21 03/26/22 [place] [address] [place] [address] Assigned PCP 01/23/22 05/14/22 [facility] [address] [place] [address] Assigned MTM Pharmacist 04/07/22 05/14/22 [place] [address] [place] [address] Assigned PCP 05/15/22 Katiana Read MD [address] [place] [address] Assigned Endocrinology Provider 06/19/22 Meme Singleton, PhD [address] [place] [address] Assigned Behavioral Health Provider 07/03/22 12/31/22 Deena Garza, JEWELRY DRILLING MACHINE OPERATOR VICE PRESIDENT OF TALENT ACQUISITION [address] [place] [address] Assigned Pain Medication Provider 07/19/22 10/29/22 Mary Del Cid, SKIMMER [address] [place] [address] Nurse Practitioner Nurse Practitioner 10/18/22 Elham Stack, [facility] [address] [place] [address] Pharmacist Pharmacist 10/19/22 Emerita Potter, [facility] Clinic Installment Dealer Hazardous Substances Engineer - Clinical 10/29/22 11/02/22 [place] [address] [place] [address] Assigned Pain Medication Provider 10/30/22 12/03/22 Michelle Guzman, ERIC, Podiatry/Foot and Ankle Surgery [address] [place] [address] Assigned Musculoskeletal Provider 10/16/22 04/08/23 [place] [address] [place] [address] Assigned Pain Medication Provider 12/04/22 04/01/23 [place] [address] [place] [address] Nurse Practitioner Nurse Practitioner 01/17/23 01/17/23 Aubrey Jones MD [address] [place] [address] Cardiovascular Disease 03/28/23 Blanquita Morales Ore Sampler Diabetes Education 04/25/23 Aubrey Jones MD [address] [place] [address] Assigned Heart and Vascular Provider 05/07/23 documented as of this encounter
--- OUTSIDE RECORDS SUMMARY | 2023-08-03 12:52 | XMS_ITS | Encounter Summary ---
Author Name Unknown Organization [place] Address [address] [place] [address]. [place] [address] Care Team Providers Care Hazard Mitigation Officer Name Role Phone Len Adhikari MD Primary Care Provider Jovany Gonzalez MD Unavailable CrissyStaci jeong DEPUTY FIRE MARSHAL Unavailable [phone] Len Adhikari MD Unavailable Reanna Smith RD Unavailable [phone] Katiana Read MD Unavailable [phone] Jese Doyle MD Unavailable +[phone] Roshni Nascimento RN Unavailable Unavailable Kiet Swain MD Unavailable [phone] Winsome Pike APRN MACHINE GUNNER Unavailable +[phone] Tori Hines [facility] Unavailable Miranda Queen [facility] Unavailable Unavailable Winsome Pike APRN MACHINE GUNNER Unavailable [phone] Marisel Armando MD Unavailable Marisel Armando MD Unavailable Inderjit Ugalde MD Unavailable [phone] Wesley Barrett MD Unavailable +[phone] Charles Jaramillo PA-C Unavailable [phone] Miranda Queen [facility] Unavailable Unavailable Leeann Rinaldi MD Unavailable Miranda Queen [facility] Unavailable Unavailable Dyan Fuentes MD Primary Care Provider [phone] Dyan Fuentes MD Unavailable [phone] Katiana Read MD Unavailable [phone] Meme Singleton PhD Unavailable +[phone] Deena Garza AGRIBUSINESS PROFESSOR MACHINE GUNNER Unavailable [phone] Mary Del Cid DEPUTY FIRE MARSHAL Unavailable + [phone] Elham Stack [facility] Unavailable [phone] Emerita Potter PATHOLOGY TECHNOLOGIST Unavailable +[phone] Mary Del Cid NP Unavailable + [phone] Michelle Guzman DPM, Podiatry /Foot and Ankle Surgery Unavailable Dyan Fuentes MD Unavailable [phone] Mary Del Cid NP Unavailable +[phone] Aubrey Jones MD Unavailable [phone] Blanquita Morales Unavailable Unavailable Aubrey Jones MD Unavailable [phone] Encounter Details Date Type Department Care Team (Late st Contact Info) Description 02/10/2021 MyC Medical Advice [facility] [address] [place] [address] [place] [address] [place] [address] Social History Tobacco Use Types [...] 2 02/02/2021 [facility]ational Stress Questionnaire Answer [...] st Contact Info) Description 08/18/2023 3:00 PM MULTIFOCAL BUTTON GRINDER Office Visit [facility] [address] [place] [address] Katiana Read MD [address] [place] [address] documented as of this encounter Visit Diagnoses [...] documented as of this encounter Care Teams Hazard Mitigation Officer Relationship Specialty Start Date End Date Len Adhikari MD PCP - General Family Practice 11/08/16 05/09/22 [place] [address] [place] [address] PCP - General Family Medicine 05/18/22 Jovany Gonzalez MD [facility] [address] [facility] [address] [place], [place] [address] Orthopedics 02/15/17 Staci Woodward NP [place] [address] [place] [address] Nurse Practitioner Nurse Practitioner Psych/Mental Health 05/10/17 [place] [address] [facility] [address] [place], [place] [phone] Assigned PCP 11/14/16 01/22/[address] [facility] [address] [place] [address] Shirt Creaser Dietitian, Registered 07/25/19 Katiana Read MD [address] [facility] 200 [place] [address] Assigned Endocrinology Provider 05/02/20 08/01/21 Jese Doyle MD 909 [place] [address] Assigned Pulmonology Provider 05/02/20 04/11/21 Roshni Nascimento RN Personal Advocate & Liaison (PAL) Family Medicine 08/18/20 Kiet Swain MD [address] [place] [address] 029684 Referring Physician Psychiatry 09/19/20 Winsome Pike APRN MACHINE GUNNER [address] [place] [address] [phone] Nurse Practitioner Psychiatry 09/19/20 Tori Hines [facility] [address] [place] [address] [phone] Furnace Mechanic Helper Furnace Mechanic Helper - Clinical 09/19/20 Miranda Queen [facility] [address] [place] [address] Pharmacist Pharmacist 11/12/20 Winsome Pike APRN MACHINE GUNNER [address] [place] [address] [phone] Assigned Behavioral Health Provider 01/04/21 07/02/22 Marisel Armando MD [address] [place] [address] 346225 MD Gastroenterology 02/05/21 Marisel Armando MD [address] [place] [address] 045275 Assigned Gastroenterology Provider 03/08/21 12/24/22 Inderjit Ugalde MD [address] [facility] 300 [place] [address] Assigned Surgical Provider 02/15/21 08/20/22 Wesley Barrett MD [address] [place] [address] 96 [place] [address] Assigned Neuroscience Provider 05/10/21 Charles Jaramillo PA-C [address] [address] Assigned Musculoskeletal Provider 04/26/21 10/15/22 Miranda Queen [facility] [address] [place] [address] Assigned MTM Pharmacist 12/05/21 03/26/22 [place] [address] [place] [address] Assigned PCP 01/23/22 05/14/22 Miranda Queen RPH [address] [place] [address] Assigned MTM Pharmacist 04/07/22 05/14/22 [place] [address] [place] [address] Assigned PCP 05/15/22 Katiana Read MD [address] [facility] 200 [place] [address] Assigned Endocrinology Provider 06/19/22 [place] [address] [place] [address] Assigned Behavioral Health Provider 07/03/22 12/31/22 Deena Garza APRN MACHINE GUNNER [address] [place] [address] Assigned Pain Medication Provider 07/19/22 10/29/22 Mary Del Cid, RAFAEL [address] [place] [address] Nurse Practitioner Nurse Practitioner 10/18/22 Elham Stack, [facility] [address] [place] [address] Pharmacist Pharmacist 10/19/22 mEerita Potter, [facility] Clinic Millstone Cleaner Furnace Mechanic Helper - Clinical 10/29/22 11/02/22 Mary Del Cid, RAFAEL [address] [place] [address] Assigned Pain Medication Provider 10/30/22 12/03/22 Michelle Guzman, DPM, Podiatry/Foot and Ankle Surgery [address] [place] [address] Assigned Musculoskeletal Provider 10/16/22 04/08/23 [place] [address] [place] [address] Assigned Pain Medication Provider 12/04/22 04/01/23 [place] [address] [place] [address] Nurse Practitioner Nurse Practitioner 01/17/23 01/17/23 Aubrey Jones MD [address] [place] [address] Cardiovascular Disease 03/28/23 Blanquita Morales Shirt Creaser Diabetes Education 04/25/23 Aubrey Jones MD [address] [place] [address] Assigned Heart and Vascular Provider 05/07/23 documented as of this encounter
--- OUTSIDE RECORDS SUMMARY | 2023-08-03 12:52 | XMS_ITS | Encounter Summary ---
Author Name Unknown Organization [place] Address [address] [place] [address]. [place] [address] Care Team Providers Care Framing And Hanging Name Role Phone Len Adhikari MD Primary Care Provider Jovany Gonzalez MD Unavailable [phone] CrissyStaci jeong WIND FARM OPERATIONS MANAGER Unavailable [phone] Len Adhikari MD Unavailable Reanna Smith RD Unavailable Katiana Read MD Unavailable [phone] Jese Doyle MD Unavailable [phone] Roshni Nascimento RN Unavailable Unavailable Kiet Swain MD Unavailable [phone] Winsome Pike APRN HOSIERY BAGGER Unavailable [phone] Tori Hines [facility] Unavailable Miranda Queen [facility] Unavailable Unavailable Winsome Pike APRN HOSIERY BAGGER Unavailable [phone] Marisel Armando MD Unavailable Marisel Armando MD Unavailable Inderjit Ugalde MD Unavailable [phone] Wesley Barrett MD Unavailable [phone] Charles Jaramillo PA-C Unavailable [phone] Miranda Queen [facility] Unavailable Unavailable Leeann Rinaldi MD Unavailable Miranda Queen [facility] Unavailable Unavailable Dyan Fuentes MD Primary Care Provider [phone] Dyan Fuentes MD Unavailable [phone] Katiana Read MD Unavailable [phone] Meme Singleton PhD Unavailable [phone] Deena Garza MAJOR GIFTS OFFICER HOSIERY BAGGER Unavailable [phone] Mary Del Cid WIND FARM OPERATIONS MANAGER Unavailable + [phone] Elham Stack [facility] Unavailable [phone] Emerita Potter DRIVER LICENSE TECHNICIAN Unavailable [phone] Mary Del Cid NP Unavailable [phone] Michelle Guzman DPM, Podiatry /Foot and Ankle Surgery Unavailable Dyan Fuentes MD Unavailable [phone] Mary Del Cid NP Unavailable [phone] Aubrey Jones MD Unavailable Blanquita Morales Unavailable Unavailable Aubrey Jones MD Unavailable [phone] Reason for Visit * Reason Onset Date Comments Pt. Information/instruction 01/30/2021 Encounter Details Date Type Department Care Team (Late st Contact Info) Description 01/30/2021 [facility] Adv[facility] [address] [place] [address] Sandy Oliver, RN [facility] [address] [facility] 600 [place] [address] Pt. Information/instruct ion Social History [...] st Contact Info) Description 08/18/2023 3:00 PM METER MAKER Office Visit [facility] [address] [place] [phone] Katiana Read MD [address] [place] [address] documented as of this encounter Visit Diagnoses [...] documented as of this encounter Care Teams Framing And Hanging Relationship Specialty Start Date End Date Len Adhikari MD PCP - General Family Practice 11/08/16 05/09/22 [place] [address] [place] [address] PCP - General Family Medicine 05/18/22 Jovany Gonzalez MD [facility] [address] [facility] [address] [place] [address] Orthopedics 02/15/17 Staci Woodward NP [place] [address] [place], [place] 487[address] Nurse Practitioner Nurse Practitioner Psych/Mental Health 05/10/17 [place] [address] [place] [address] Assigned PCP 11/14/16 01/22/[address] [facility] [address] [place] [address] Laboratory Technologist Dietitian, Registered 07/25/19 Katiana Read MD [address] [place] [address] 200 [place], [place] 506010 Assigned Endocrinology Provider 05/02/20 08/01/21 Jese Doyle MD 909 [place], [place] 6[address] Assigned Pulmonology Provider 05/02/20 04/11/21 Roshni Nascimento RN Personal Advocate & Liaison (PAL) Family Medicine 08/18/20 Kiet Swain MD [address] [place] [address] [phone] Referring Physician Psychiatry 09/19/20 Winsome Pike APRN HOSIERY BAGGER [facility] [address] [phone] Nurse Practitioner Psychiatry 09/19/20 Tori Hines DRIVER LICENSE TECHNICIAN [address] [place] [address] Delinquency Prevention Officer Delinquency Prevention Officer - Clinical 09/19/20 Miranda Queen [facility] [address] [place] [address] Pharmacist Pharmacist 11/12/20 Winsome Pike APRN HOSIERY BAGGER [address] [place] [address] 050114 Assigned Behavioral Health Provider 01/04/21 07/02/22 Marisel Armando MD [address] [place] [address] Gastroenterology 02/05/21 Marisel Armando MD [address] [place] [address] Assigned Gastroenterology Provider 03/08/21 12/24/22 Inderjit Ugalde MD [address] [facility] 300 [place] [address] Assigned Surgical Provider 02/15/21 08/20/22 Wesley Barrett MD 420 [facility] 96 [place], [place] 128[address] Assigned Neuroscience Provider 05/10/21 Charles Jaramillo PA-C [address] [address] Assigned Musculoskeletal Provider 04/26/21 10/15/22 Miranda Queen [facility] [address] [place] [address] Assigned MTM Pharmacist 12/05/21 03/26/22 [place] [address] [place] [address] Assigned PCP 01/23/22 05/14/22 Miranda Queen RPH [address] [place] [address] Assigned MTM Pharmacist 04/07/22 05/14/22 [place] [address] [place] [address] Assigned PCP 05/15/22 Katiana Read MD [address] [place] [address] Assigned Endocrinology Provider 06/19/22 Meme Singleton, PhD [address] [place] [address] [place] [address] Assigned Behavioral Health Provider 07/03/22 12/31/22 Deena Garza, MAJOR GIFTS OFFICER HOSIERY BAGGER [address] [place] 220297 Assigned Pain Medication Provider 07/19/22 10/29/22 Mary Del Cid, RAFAEL [address] [place] [address]807 Nurse Practitioner Nurse Practitioner 10/18/22 Elham Stack, [facility] [address] [place] [address] Pharmacist Pharmacist 10/19/22 Emerita Potter, [facility] Clinic Substitute School Nurse Delinquency Prevention Officer - Clinical 10/29/22 11/02/22 [place] [address] [place] [address] Assigned Pain Medication Provider 10/30/22 12/03/22 Michelle Guzman DPM, Podiatry/Foot and Ankle Surgery [address] [place] [address] Assigned Musculoskeletal Provider 10/16/22 04/08/23 [place] [address] [place] [address] Assigned Pain Medication Provider 12/04/22 04/01/23 [place] [address] [place] [address] Nurse Practitioner Nurse Practitioner 01/17/23 01/17/23 Aubrey Jones MD [address] [place] [address] Cardiovascular Disease 03/28/23 Blanquita Morales Laboratory Technologist Diabetes Education 04/25/23 Aubrey Jones MD [address] [place] [address] Assigned Heart and Vascular Provider 05/07/23 documented as of this encounter
--- OUTSIDE RECORDS SUMMARY | 2023-08-03 12:52 | XMS_ITS | Encounter Summary ---
Author Name Unknown Organization [place] Address [address] [place] [address]. [place] [address] Care Team Providers Care Automated Teller Manager Name Role Phone Len Adhikari MD Primary Care Provider [phone] Jovany Gonzalez MD Unavailable CrissyStaci jeong MOLD RUNNER Unavailable [phone] Len Adhikari MD Unavailable Reanna Smith RD Unavailable Katiana Read MD Unavailable [phone] Jese Doyle MD Unavailable [phone] Roshni Nascimento RN Unavailable Unavailable Kiet Swain MD Unavailable [phone] Winsome Pike APRN EDITORIAL WRITER Unavailable +[phone] Tori Hines [facility] Unavailable Miranda Queen [facility] Unavailable Unavailable Winsome Pike APRN EDITORIAL WRITER Unavailable [phone] Marisel Armando MD Unavailable Marisel Armando MD Unavailable Inderjit Ugalde MD Unavailable [phone] Wesley Barrett MD Unavailable [phone] Charles Jaramillo PA-C Unavailable [phone] Miranda Queen [facility] Unavailable Unavailable Leeann Rinaldi MD Unavailable Miranda Queen [facility] Unavailable Unavailable Dyan Fuentes MD Primary Care Provider [phone] Dyan Fuentes MD Unavailable [phone] Katiana Read MD Unavailable [phone] Meme Singleton PhD Unavailable [phone] Deena Garza MANAGER PROVIDER RELATIONS EDITORIAL WRITER Unavailable +[phone] Mary Del Cid MOLD RUNNER Unavailable + [phone] Elham Stack [facility] Unavailable [phone] Emerita Potter MOLDING MANAGER Unavailable [phone] Mary Del Cid NP Unavailable + [phone] Michelle Guzman DPM, Podiatry /Foot and Ankle Surgery Unavailable Dyan Fuentes MD Unavailable [phone] Mary Del Cid NP Unavailable +[phone] Aubrey Jones MD Unavailable [phone] Blanquita Morales Unavailable Unavailable Aubrey Jones MD Unavailable [phone] Encounter Details Date Type Department Care Team (Late st Contact Info) Description 02/10/2021 MyC Medical Advice [facility] [address] [place] [address] [place] [address] [place] [address] Social History Tobacco Use Types [...] Answer Date Recorded PHQ-2 Score 2 02/02/2021 [facility] Questionnaire Answer Date [...] Contact Info) Description 08/18/2023 3:00 PM DIRECTOR PLANS Office Visit [facility] [address] [place] [address] Katiana Read MD [address] [place] [address] documented as of this encounter Visit Diagnoses [...] documented as of this encounter Care Teams Automated Teller Manager Relationship Specialty Start Date End Date Len Adhikari MD PCP - General Family Practice 11/08/16 05/09/22 [place] [address] [place] [address] PCP - General Family Medicine 05/18/22 Jovany Gonzalez MD [facility] [address] [facility] 605 [place], [place] [address] Orthopedics 02/15/17 Staci Woodward NP [place] [address] [place] [address] Nurse Practitioner Nurse Practitioner Psych/Mental Health 05/10/17 [place] [address] [facility] [address] [place], [place] [phone] Assigned PCP 11/14/16 01/22/[address] [facility] [address] [place] [address] Entry Level Software Developer Dietitian, Registered 07/25/19 Katiana Read MD [address] [facility] 200 [place] [address] Assigned Endocrinology Provider 05/02/20 08/01/21 Jese Doyle MD 909 [place] [address] Assigned Pulmonology Provider 05/02/20 04/11/21 Roshni Nascimento RN Personal Advocate & Liaison (PAL) Family Medicine 08/18/20 Kiet Swain MD [address] [place] [address] 152584 Referring Physician Psychiatry 09/19/20 Winsome Pike APRN EDITORIAL WRITER [address] [place] [address] [phone] Nurse Practitioner Psychiatry 09/19/20 Tori Hines [facility] [address] [place] [address] [phone] Gill Box Tender Gill Box Tender - Clinical 09/19/20 Miranda Queen [facility] [address] [place] [address] Pharmacist Pharmacist 11/12/20 Winsome Pike APRN EDITORIAL WRITER [address] [place] [address] [phone] Assigned Behavioral Health Provider 01/04/21 07/02/22 Marisel Armando MD [address] [place] [address] [id number] MD Gastroenterology 02/05/21 Marisel Armando MD [address] [place] [address] [phone] Assigned Gastroenterology Provider 03/08/21 12/24/22 Inderjit Ugalde MD [address] [facility] 300 [place] [address] Assigned Surgical Provider 02/15/21 08/20/22 Wesley Barrett MD [address] [place] [address] 96 [place] [address] Assigned Neuroscience Provider 05/10/21 Charles Jaramillo PA-C [address] [address] Assigned Musculoskeletal Provider 04/26/21 10/15/22 Miranda Queen [facility] [address] [place] [address] Assigned MTM Pharmacist 12/05/21 03/26/22 [place] [address] [place] [address] Assigned PCP 01/23/22 05/14/22 Miranda Queen [place] [address] [place] [address] Assigned MTM Pharmacist 04/07/22 05/14/22 [place] [address] [place] [address] Assigned PCP 05/15/22 Katiana Read MD [address] [facility] 200 [place] [address] Assigned Endocrinology Provider 06/19/22 [place] [address] [place] [address] Assigned Behavioral Health Provider 07/03/22 12/31/22 Deena Garza APRN EDITORIAL WRITER [address] [place] [address] Assigned Pain Medication Provider 07/19/22 10/29/22 Mary Del Cid, RAFAEL [address] [place] [address] Nurse Practitioner Nurse Practitioner 10/18/22 Elham Stack, [facility] [address] [place] [address] Pharmacist Pharmacist 10/19/22 Emerita Potter, [facility] Clinic Curer Foam Rubber Gill Box Tender - Clinical 10/29/22 11/02/22 Mary Del Cid, RAFA[place] [address] [place] [address] Assigned Pain Medication Provider 10/30/22 12/03/22 Michelle Guzman, DPM, Podiatry/Foot and Ankle Surgery [address] [place] [address] Assigned Musculoskeletal Provider 10/16/22 04/08/23 [place] [address] [place] [address] Assigned Pain Medication Provider 12/04/22 04/01/23 [place] [address] [address] [place] [address] Nurse Practitioner Nurse Practitioner 01/17/23 01/17/23 Aubrey Jones MD [address] [place] [address] Cardiovascular Disease 03/28/23 Blanquita Morales Entry Level Software Developer Diabetes Education 04/25/23 Aubrey Jones MD [address] [place] [address] Assigned Heart and Vascular Provider 05/07/23 documented as of this encounter
--- OUTSIDE RECORDS SUMMARY | 2023-08-03 12:53 | XMS_ITS | Encounter Summary ---
Author Name Unknown Organization [facility] Address [address] [place] [address]. [place] [address] Care Team Providers Care Clerical Manager Name Role Phone Len Adhikari MD Primary Care Provider [phone] Jovany Gonzalez MD Unavailable [phone] CrissyStaci jeong ELECTRIC NEEDLE SPECIALIST Unavailable [phone] Len Adhikari MD Unavailable Reanna Smith RD Unavailable [phone] Katiana Read MD Unavailable [phone] Jese Doyle MD Unavailable [phone] Roshni Nascimento RN Unavailable Unavailable Kiet Swain MD Unavailable [phone] Winsome Pike APRN CRITICAL CARE PHYSICIAN Unavailable +[phone] Tori Hines [facility] Unavailable Miranda Queen [facility] Unavailable Unavailable Winsome Pike APRN CRITICAL CARE PHYSICIAN Unavailable [phone] Marisel Armando MD Unavailable Marisel Armando MD Unavailable Inderjit Ugalde MD Unavailable [phone] Wesley Barrett MD Unavailable +[phone] Charles Jaramillo PA-C Unavailable [phone] Miranda Queen [facility] Unavailable Unavailable Leeann Rinaldi MD Unavailable Miranda Queen [facility] Unavailable Unavailable Dyan Fuentes MD Primary Care Provider [phone] Dyan Fuentes MD Unavailable [phone] Katiana Read MD Unavailable [phone] Meme Singleton PhD Unavailable [phone] Deena Garza BORDER MACHINE OPERATOR CRITICAL CARE PHYSICIAN Unavailable +[phone] Mary Del Cid ELECTRIC NEEDLE SPECIALIST Unavailable + [phone] Elham Stack [facility] Unavailable [phone] Emerita Potter DISH MAKER Unavailable +[phone] Mary Del Cid NP Unavailable + [phone] [...] Contact Info) Description 01/14/2021 MyC Medical Advice [facility] [address] [place] [address] [place] [address] [place] [address] MyChart Communication Social History Tobacco [...] points; Administer PHQ-9 if positive 6 12/22/2020 [facility] [place] of Occupat ional Health - Occupational Stress [...] st Contact Info) Description 08/18/2023 3:00 PM SHED BOSS Office Visit [facility] [address] [place] [address] Katiana Read MD [address] [place] [address] documented as of this encounter Visit Diagnoses [...] documented as of this encounter Care Teams Clerical Manager Relationship Specialty Start Date End Date Len Adhikari MD PCP - General Family Practice 11/08/16 05/09/22 [place] [address] [place] [address] PCP - General Family Medicine 05/18/22 Jovany Gonzalez MD [facility] [address] [place] [id number] Orthopedics 02/15/17 Staci Woodward NP [facility] [address] [place], [place] 183867 Nurse Practitioner Nurse Practitioner Psych/Mental Health 05/10/17 [place] [address] [place] [address] Assigned PCP 11/14/16 01/22/[address] [facility] [address] [place] [address] Mortuary Beautician Dietitian, Registered 07/25/19 Katiana Read MD [address] [place] [address] 925990 Assigned Endocrinology Provider 05/02/20 08/01/21 Jese Doyle MD 9[address] [place], [place] 529775 Assigned Pulmonology Provider 05/02/20 04/11/21 Roshni Nascimento, RN Personal Advocate & Liaison (PAL) Family Medicine 08/18/20 Kiet Swain MD [address] [place] [address] 277214 Referring Physician Psychiatry 09/19/20 Winsmoe Pike APRN CRITICAL CARE PHYSICIAN [facility] [address] 487964 Nurse Practitioner Psychiatry 09/19/20 Tori Hines, [facility] [address] [place] [address] [phone] Teacher Vocal Teacher Vocal - Clinical 09/19/20 Miranda Queen, [facility] [address] [place] [address] Pharmacist Pharmacist 11/12/20 Winsome Pike APRN CRITICAL CARE PHYSICIAN [address] [place] [address] 748604 Assigned Behavioral Health Provider 01/04/21 07/02/22 Marisel Armando MD [address] [place] [address] 295575 Gastroenterology 02/05/21 Marisel Armando MD [address] [place] [address] 564045 Assigned Gastroenterology Provider 03/08/21 12/24/22 Inderjit Ugalde MD [address] [facility] 300 [place] [address] Assigned Surgical Provider 02/15/21 08/20/22 Wesley Barrett MD 420 [facility] 96 [place], [place] 361615 Assigned Neuroscience Provider 05/10/21 Charles Jaramillo PA-C [address] [facility] [address] [address] Assigned Musculoskeletal Provider 04/26/21 10/15/22 Miranda Queen [facility] [address] [place] [address] Assigned MTM Pharmacist 12/05/21 03/26/22 [place] [address] [place] [address] Assigned PCP 01/23/22 05/14/22 Miranda Queen [facility] [address] [place] [address] Assigned MTM Pharmacist 04/07/22 05/14/22 [place] [address] [address] [address] Assigned PCP 05/15/22 Katiana Read MD [address] [address] Assigned Endocrinology Provider 06/19/22 [place] [address] [place] [address] Assigned Behavioral Health Provider 07/03/22 12/31/22 Deena Garza APRN CRITICAL CARE PHYSICIAN [address] [place] [address] Assigned Pain Medication Provider 07/19/22 10/29/22 Mary Del Cid, RAFAEL [address] [place] [address] Nurse Practitioner Nurse Practitioner 10/18/22 Elham Stack, [facility] [address] [place] [address] Pharmacist Pharmacist 10/19/22 Emerita Potter, [facility] Clinic Emt I/85 Teacher Vocal - Clinical 10/29/22 11/02/22 [place] [address] [place] [address] Assigned Pain Medication Provider 10/30/22 12/03/22 Michelle Guzman, DPM, Podiatry/Foot and Ankle Surgery [address] [place] [address] Assigned Musculoskeletal Provider 10/16/22 04/08/23 [place] [address] [place] [address] Assigned Pain Medication Provider 12/04/22 04/01/23 [place] [address] [place] [address] Nurse Practitioner Nurse Practitioner 01/17/23 01/17/23 Aubrey Jones MD [address] [place] [address] Cardiovascular Disease 03/28/23 Blanquita Morales Mortuary Beautician Diabetes Education 04/25/23 Aubrey Jones MD [address] [place] [address] Assigned Heart and Vascular Provider 05/07/23 documented as of this encounter
--- OUTSIDE RECORDS SUMMARY | 2023-08-03 12:53 | XMS_ITS | Encounter Summary ---
Author Name Unknown Organization [facility] Address [address] [place] [address]. [place] [address] Care Team Providers Care Polish Maker Name Role Phone Len Adhikari MD Primary Care Provider Jovany Gonzalez MD Unavailable [phone] CrissyStaci jeong TRAVEL AGENCY MANAGER Unavailable [phone] Len Adhikari MD Unavailable Reanna Smith [address] Unavailable [phone] Katiana Read MD Unavailable [phone] Jese Doyle MD Unavailable [phone] Roshni Nascimento RN Unavailable Unavailable Kiet Swain MD Unavailable [phone] Winsome Pike APRN CAREER GUIDANCE TECHNICIAN Unavailable [phone] Tori Hines [facility] Unavailable Miranda Queen [facility] Unavailable Unavailable Winsome Pike APRN CAREER GUIDANCE TECHNICIAN Unavailable [phone] Marisel Armando MD Unavailable Marisel Armando MD Unavailable Inderjit Ugalde MD Unavailable [phone] Wesley Barrett MD Unavailable [phone] Charles Jaramillo PA-C Unavailable [phone] Miranda Queen [facility] Unavailable Unavailable Leeann Rinadli MD Unavailable Miranda Queen [facility] Unavailable Unavailable Dyan Fuentes MD Primary Care Provider [phone] Dyan Fuentes MD Unavailable [phone] Katiana Read MD Unavailable [phone] Meme Singleton PhD Unavailable [phone] Deena Garza PHARMACEUTICAL PROCESS ENGINEER CAREER GUIDANCE TECHNICIAN Unavailable +[phone] Mary Del Cid NP Unavailable + [phone] Elham Stack [facility] Unavailable [phone] Emerita Potter HIGH SCHOOL SCIENCE TEACHER Unavailable [phone] Mary Del Cid NP Unavailable + [phone] Michelle Guzman DPM, Podiatry /Foot and Ankle Surgery Unavailable Dyan Fuentes MD Unavailable [phone] Mary Del Cid NP Unavailable [phone] Aubrey Jones MD Unavailable [phone] Blanquita Morales Unavailable Unavailable Aubrey Jones MD Unavailable [phone] Encounter Details Date Type Department Care Team (Late st Contact Info) Description 12/22/2020 [facility] Medical Advice [facility] Mental Health & Addiction [address] [address] [address] Tori Hines, [facility] [address] [place], [place] 714[address] Social History Tobacco Use Types Packs/Day Years [...] How often do you attend chur or presybeterian services? Never 09/20/2020 Do you belong to [...] points; Administer PHQ-9 if positive 6 12/22/2020 [facility] of Occupat ional Health - [...] st Contact Info) Description 08/18/2023 3:00 PM PRINTING AND STAMPING SUPERVISOR Office Visit [facility] [address] [place] [address] Katiana Read MD [address] [place] [address] documented as of this encounter Visit Diagnoses [...] documented as of this encounter Care Teams Polish Maker Relationship Specialty Start Date End Date Len Adhikari MD PCP - General Family Practice 11/08/16 05/09/22 [place] [address] [place] [address] PCP - General Family Medicine 05/18/22 Jovany Gonzalez MD [facility] [address] [facility] [address] [place], [place] 637365 Orthopedics 02/15/17 Staci Woodward NP [place] [address] [place], [place] 869467 Nurse Practitioner Nurse Practitioner Psych/Mental Health 05/10/17 [place] [address] [place] [address] Assigned PCP 11/14/16 01/22/[address] [facility] [address] [place] [address] Hand Etcher Dietitian, Registered 07/25/19 Katiana Read MD [address] [facility] 200 [place], [place] 891870 Assigned Endocrinology Provider 05/02/20 08/01/21 Jese Doyle MD 909 [place], [place] 323925 Assigned Pulmonology Provider 05/02/20 04/11/21 Roshni Nascimento, ZITA Personal Advocate & Liaison (PAL) Family Medicine 08/18/20 Kiet Swain MD [address] [place] [address] [id number] Referring Physician Psychiatry 09/19/20 Winsome Pike APRN CAREER GUIDANCE TECHNICIAN [facility] [address] [address] Nurse Practitioner Psychiatry 09/19/20 Tori Hines [facility] [address] [place] [address] Molecular Biology Scientist Molecular Biology Scientist - Clinical 09/19/20 Miranda Queen [facility] [address] [place] [address] Pharmacist Pharmacist 11/12/20 Winsome Pike APRN CAREER GUIDANCE TECHNICIAN [address] [place], [place] 200[address] Assigned Behavioral Health Provider 01/04/21 07/02/22 Marisel Armando MD [address] [place] [address] 533335 Gastroenterology 02/05/21 Marisel Armando MD [address] [place] [address] 936005 Assigned Gastroenterology Provider 03/08/21 12/24/22 Inderjit Ugalde MD [address] [facility] 300 [place], [place] 647957 Assigned Surgical Provider 02/15/21 08/20/22 Wesley Barrett MD 420 [facility] 96 [place], [place] 593025 Assigned Neuroscience Provider 05/10/21 Charles Jaramillo PA-C [address] [address] Assigned Musculoskeletal Provider 04/26/21 10/15/22 Miranda Queen [facility] [address] [facility] [place] [place] [address] Assigned MTM Pharmacist 12/05/21 03/26/22 [place] [address] [place] [address] Assigned PCP 01/23/22 05/14/22 Miranda Queen RPH [address] [place] [address] Assigned MTM Pharmacist 04/07/22 05/14/22 [place] [address] [place] [address] Assigned PCP 05/15/22 Katiana Read MD [address] [place] [address] Assigned Endocrinology Provider 06/19/22 [place] [address] [place] [address] Assigned Behavioral Health Provider 07/03/22 12/31/22 Deena Garza APRN CAREER GUIDANCE TECHNICIAN [address] [place] [address] Assigned Pain Medication Provider 07/19/22 10/29/22 [place] [address] [place] 608237 Nurse Practitioner Nurse Practitioner 10/18/22 Elham Stack, [facility] 30[address] [place] [address] Pharmacist Pharmacist 10/19/22 Emerita Potter, [facility] Clinic Science Professor Molecular Biology Scientist - Clinical 10/29/22 11/02/22 [place] [address] [place] [address] Assigned Pain Medication Provider 10/30/22 12/03/22 Michelle Guzman DPM, Podiatry/Foot and Ankle Surgery [address] [place] [place] [address] Assigned Musculoskeletal Provider 10/16/22 04/08/23 [place] [address] [place] [address] Assigned Pain Medication Provider 12/04/22 04/01/23 [place] [address] [place] [address] Nurse Practitioner Nurse Practitioner 01/17/23 01/17/23 Aubrey Jones MD [address] [place] [address] Cardiovascular Disease 03/28/23 Blanquita Morales Hand Etcher Diabetes Education 04/25/23 Aubrey Jones MD [address] [place] [address] Assigned Heart and Vascular Provider 05/07/23 documented as of this encounter
--- OUTSIDE RECORDS SUMMARY | 2023-08-03 12:53 | XMS_ITS | Encounter Summary ---
Author Name Unknown Organization [facility] Address [address] [place] [address]. [place] [address] Care Team Providers Care Reclamation Worker Name Role Phone Len Adhikari MD Primary Care Provider Jovany Gonzalez MD Unavailable CrissyStaci jeong FACULTY PHYSICIAN Unavailable [phone] Len Adhikari MD Unavailable Reanna Smith RD Unavailable Katiana Read MD Unavailable [phone] Jese Doyle MD Unavailable [phone] Roshni Nascimento RN Unavailable Unavailable Kiet Swain MD Unavailable [phone] Winsome Pike APRN SPECTROGRAPHER Unavailable [phone] Tori Hines [facility] Unavailable Miranda Queen [facility] Unavailable Unavailable Winsome Pike APRN SPECTROGRAPHER Unavailable [phone] Marisel Armando MD Unavailable Marisel Armando MD Unavailable Inderjit Ugalde MD Unavailable [phone] Wesley Barrett MD Unavailable [phone] Charles Jaramillo PA-C Unavailable [phone] Miranda Queen [facility] Unavailable Unavailable Leeann Rinaldi MD Unavailable Miranda Queen [facility] Unavailable Unavailable Dyan Fuentes MD Primary Care Provider [phone] Dyan Fuentes MD Unavailable [phone] Katiana Read MD Unavailable [phone] Meme Singleton PhD Unavailable +[phone] Deena Garza ICHTHYOLOGIST SPECTROGRAPHER Unavailable +[phone] Mary Del Cid NP Unavailable + [phone] Elham tSack [facility] Unavailable [phone] Emerita Potter CADET DECK Unavailable +[phone] Mary Del Cid NP Unavailable + [phone] [...] you attend chur ch or orthodoxy services? Never 09/20/2020 Do you belong to [...] points; Administer PHQ-9 if positive 6 12/22/2020 [facility] of Occupat ional Health [...] st Contact Info) Description 08/18/2023 3:00 PM WATERWORKS OPERATOR Office Visit [facility] [address] [place] [address] Katiana Read MD [address] [place], [place] 44[address] documented as of this encounter Visit Diagnoses [...] documented as of this encounter Care Teams Reclamation Worker Relationship Specialty Start Date End Date Len Adhikari MD PCP - General Family Practice 11/08/16 05/09/22 [place] [address] [place] [address] PCP - General Family Medicine 05/18/22 Jovany Gonzalez MD [facility] 6600 [facility] 605 [place], [place] 9[address] Orthopedics 02/15/17 Staci Woodward, FACULTY PHYSICIAN [place] [address] [place] [address] Nurse Practitioner Nurse Practitioner Psych/Mental Health 05/10/17 [place] [address] [facility] [place] [address] Assigned PCP 11/14/16 01/22/[address] [facility] [address] [place] [address] Tire Cord Weaver Dietitian, Registered 07/25/19 Katiana Read MD [address] [address] Assigned Endocrinology Provider 05/02/20 08/01/21 Jese Doyle MD [address] [place] [address] Assigned Pulmonology Provider 05/02/20 04/11/21 Rosnhi Nascimento, RN Personal Advocate & Liaison (PAL) Family Medicine 08/18/20 Kiet Swain MD [address] [place] [address] 793734 Referring Physician Psychiatry 09/19/20 Winsome Pike APRN SPECTROGRAPHER [address] [place] [address] 943604 Nurse Practitioner Psychiatry 09/19/20 Tori Hines [facility] [place], [place] 9[address] Behavioral Therapist Behavioral Therapist - Clinical 09/19/20 Miranda Queen [facility] [address] [place] [address] Pharmacist Pharmacist 11/12/20 Winsome Pike APRN SPECTROGRAPHER [address] [place] [address] 487744 Assigned Behavioral Health Provider 01/04/21 07/02/22 Marisel Armando MD [address] [place] [address] Gastroenterology 02/05/21 Marisel Armando MD 909 [place] [address] Assigned Gastroenterology Provider 03/08/21 12/24/22 Inderjit Ugalde MD [address] [place] [address] Assigned Surgical Provider 02/15/21 08/20/22 Wesley Barrett MD 420 [facility] 96 [place] [address] Assigned Neuroscience Provider 05/10/21 Charles Jaramillo PA-C [address] [address] Assigned Musculoskeletal Provider 04/26/21 10/15/22 Miranda Queen [facility] [address] [place] [address] Assigned MTM Pharmacist 12/05/21 03/26/22 [place] [address] [place] [address] Assigned PCP 01/23/22 05/14/22 Miranda Queen [facility] [address] [place] [address] Assigned MTM Pharmacist 04/07/22 05/14/22 [place] [address] [place] [address] Assigned PCP 05/15/22 Katiana Read MD [address] [facility] 200 [place] [address] Assigned Endocrinology Provider 06/19/22 [place] [address] [place] [address] Assigned Behavioral Health Provider 07/03/22 12/31/22 Deena Garza, ICHTHYOLOGIST SPECTROGRAPHER [address] [place] [address] Assigned Pain Medication Provider 07/19/22 10/29/22 [place] [address] [place] [address] Nurse Practitioner Nurse Practitioner 10/18/22 Elham Stack, [facility] [address] [place], [place] [address] Pharmacist Pharmacist 10/19/22 Emerita Potter, [facility] Clinic Veneer Layer Behavioral Therapist - Clinical 10/29/22 11/02/22 [place] [address] [place] [address] Assigned Pain Medication Provider 10/30/22 12/03/22 Michelle Guzman DPM, Podiatry/Foot and Ankle Surgery [address] [place] [address] [place] [address] Assigned Musculoskeletal Provider 10/16/22 04/08/23 [place] [address] [place] [address] Assigned Pain Medication Provider 12/04/22 04/01/23 [place] [address] [place] [address] Nurse Practitioner Nurse Practitioner 01/17/23 01/17/23 Aubrey Jones MD [address] [place] [address] Cardiovascular Disease 03/28/23 Blanquita Morales T[employer] Cord Weaver Diabetes Education 04/25/23 Aubrey Jones MD [address] [place] [address] Assigned Heart and Vascular Provider 05/07/23 documented as of this encounter
--- OUTSIDE RECORDS SUMMARY | 2023-08-03 12:53 | XMS_ITS | Encounter Summary ---
Author Name Unknown Organization [place] Address [address] [place] [address]. [place] [address] Care Team Providers Care Practice Representative Name Role Phone Len Adhikari MD Primary Care Provider Jovany Gonzalez MD Unavailable CrissyStaci jeong CANAL BOAT CAPTAIN Unavailable Len Adhikari MD Unavailable Reanna Smith RD Unavailable [phone] Katiana Read MD Unavailable [phone] Jese Doyle MD Unavailable +[phone] Roshni Nascimento RN Unavailable Unavailable Kiet Swain MD Unavailable [phone] Winsome Pike APRN TICKETING AGENT Unavailable +[phone] Tori Hines [facility] Unavailable Miranda Queen [facility] Unavailable Unavailable Winsome Pike APRN TICKETING AGENT Unavailable [phone] Marisel Armando MD Unavailable Marisel Armando MD Unavailable Inderjit Ugalde MD Unavailable [phone] Wesley Barrett MD Unavailable +[phone] Charles Jaramillo PA-C Unavailable [phone] Miranda Queen [facility] Unavailable Unavailable Leeann Rinaldi MD Unavailable Miranda Queen [facility] Unavailable Unavailable Dyan Fuentes MD Primary Care Provider [phone] Dyan Fuentes MD Unavailable [phone] Katiana Read MD Unavailable [phone] Meme Singleton PhD Unavailable +[phone] Deena Garza [employer] TOP HELPER TICKETING AGENT Unavailable +[phone] Mary Del Cid CANAL BOAT CAPTAIN Unavailable + [phone] Elham Stack [facility] Unavailable [phone] Emerita Potter MANAGER PATIENT Unavailable +[phone] Mary Del Cid NP Unavailable + [phone] Michelle Guzman DPM, Podiatry /Foot and Ankle Surgery Unavailable Dyan Fuentes MD Unavailable +[phone] Mary Del Cid NP Unavailable [phone] Aubrey Jones MD Unavailable [phone] Blanquita Morales Unavailable Unavailable Aubrey Jones MD Unavailable [phone] Encounter Details Date Type Department Care Team (Late st Contact Info) Description 12/24/2020 [facility] Medical Advice [facility] [address] [place] [address] [place] [address] [place] [address] Social History Tobacco Use Types [...] often do you attend chur ch or presybeterian services? Never 09/20/2020 Do you belong to any clubs o r organizations such as yarsanism groups, unions, fraternal or athletic groups, or [...] points; Administer PHQ-9 if positive 6 12/22/2020 [facility] - [...] st Contact Info) Description 08/18/2023 3:00 PM MATERIALS TECHNICIAN Office Visit [facility] [address] [place] [address] Katiana Read MD [address] [place] [address] documented as of this encounter [...] documented as of this encounter Care Teams Practice Representative Relationship Specialty Start Date End Date Len Adhikari MD PCP - General Family Practice 11/08/16 05/09/22 [place] [address] [place] [address] PCP - General Family Medicine 05/18/22 Jovany Gonzalez MD [facility] [address] [facility] 605 [place] [address] Orthopedics 02/15/17 Staci Woodward NP [place] [address] [place], [place] [phone] Nurse Practitioner Nurse Practitioner Psych/Mental Health 05/10/17 [place] [address] [place] [address] Assigned PCP 11/14/16 01/22/[address] [facility] [address] [place] [address] Boat Worker Dietitian, Registered 07/25/19 Katiana Read MD [address] [facility] 200 [place] [address] Assigned Endocrinology Provider 05/02/20 08/01/21 Jese Doyle MD [address] [place], [place] 928175 Assigned Pulmonology Provider 05/02/20 04/11/21 Roshni Nascimento, RN Personal Advocate & Liaison (PAL) Family Medicine 08/18/20 Kiet Swain MD [address] [place] [address] 088124 Referring Physician Psychiatry 09/19/20 Winsome Pike APRN TICKETING AGENT [facility] [address] 678174 Nurse Practitioner Psychiatry 09/19/20 Tori Hines [facility] [address] [place] [address] [id number] Interior Horticulturist Interior Horticulturist - Clinical 09/19/20 Miranda Queen [facility] [address] [place] [address] Pharmacist Pharmacist 11/12/20 Winsome Pike APRN TICKETING AGENT [address] [place] [address] Assigned Behavioral Health Provider 01/04/21 07/02/22 Marisel Armando MD [address] [place] [address] Gastroenterology 02/05/21 Marisel Armando MD [address] [place] [address] Assigned Gastroenterology Provider 03/08/21 12/24/22 Inderjit Ugalde MD [address] [facility] 300 [place] [address] Assigned Surgical Provider 02/15/21 08/20/22 Wesley Barrett MD 420 [facility] 96 [place] [address] Assigned Neuroscience Provider 05/10/21 Charles Jaramillo PA-C [address] [address] Assigned Musculoskeletal Provider 04/26/21 10/15/22 Miranda Queen [facility] [address] [place] [address] Assigned MTM Pharmacist 12/05/21 03/26/22 [place] [address] [place] [address] Assigned PCP 01/23/22 05/14/22 Miranda Queen [facility] [address] [place] [address] Assigned MTM Pharmacist 04/07/22 05/14/22 [place] [address] [place] [address] Assigned PCP 05/15/22 Katiana Read MD [address] [place] [address] Assigned Endocrinology Provider 06/19/22 [place] [address] [place] [address] Assigned Behavioral Health Provider 07/03/22 12/31/22 Deena Garza APRN TICKETING AGENT [address] [place] [address] Assigned Pain Medication Provider 07/19/22 10/29/22 Mary Del Cid, RAFAEL [address] [place] [address] Nurse Practitioner Nurse Practitioner 10/18/22 Elham Stack, [facility] [address] [place] [address] Pharmacist Pharmacist 10/19/22 Emerita Potter, [facility] Clinic Looseleaf Binder Coverer Interior Horticulturist - Clinical 10/29/22 11/02/22 Mary Del Cid, RAFAEL [address] [place] [address] Assigned Pain Medication Provider 10/30/22 12/03/22 Michelle Guzman, DPM, Podiatry/Foot and Ankle Surgery [address] [place] [address] Assigned Musculoskeletal Provider 10/16/22 04/08/23 [place] [address] [address] [place] [address] Assigned Pain Medication Provider 12/04/22 04/01/23 [place] [address] [place] [address] Nurse Practitioner Nurse Practitioner 01/17/23 01/17/23 Aubrey Jones MD [address] [place] [address] Cardiovascular Disease 03/28/23 Blanquita Morales Boat Worker Diabetes Education 04/25/23 Aubrey Jones MD [address] [place] [address] Assigned Heart and Vascular Provider 05/07/23 documented as of this encounter
--- OUTSIDE RECORDS SUMMARY | 2023-08-03 12:53 | XMS_ITS | Encounter Summary ---
Author Name Unknown Organization [place] Address [address] [place] [address]. [place] [address] Care Team Providers Care Unit Operator Name Role Phone Len Adhikari MD Primary Care Provider [phone] Jovany Gonzalez MD Unavailable [phone] CrissyStaci jeong FAMILY PRESERVATION WORKER Unavailable [phone] Len Adhikari MD Unavailable Reanna Smith RD Unavailable Katiana Read MD Unavailable [phone] Jese Doyle MD Unavailable [phone] Roshni Nascimento RN Unavailable Unavailable Kiet Swain MD Unavailable [phone] Winsome Pike APRN SENIOR SHIPPING CLERK Unavailable [phone] Tori Hines [facility] Unavailable Miranda Queen [facility] Unavailable Unavailable Winsome Pike APRN SENIOR SHIPPING CLERK Unavailable [phone] Marisel Armando MD Unavailable Marisel Armando MD Unavailable Inderjit Ugalde MD Unavailable [phone] Wesley Barrett MD Unavailable [phone] Charles Jaramillo PA-C Unavailable [phone] Miranda Queen [facility] Unavailable Unavailable Leeann Rinaldi MD Unavailable Miranda Queen [facility] Unavailable Unavailable Dyan Fuentes MD Primary Care Provider [phone] Dyan Fuentes MD Unavailable [phone] Katiana Read MD Unavailable [phone] Meme Singleton PhD Unavailable +[phone] Deena Garza CARRY OUT CLERK SENIOR SHIPPING CLERK Unavailable [phone] Mary Del Cid NP Unavailable + [phone] Elham Stack [facility] Unavailable [phone] Emerita Potter NON PROFIT DIRECTOR Unavailable +[phone] Mary Del Cid NP Unavailable + [phone] Michelle Guzman DPM, Podiatry /Foot and Ankle Surgery Unavailable Dyan Fuentes MD Unavailable +[phone] Mary Del Cid NP Unavailable [phone] Aubrey Jones MD Unavailable [phone] Blanquita Morales Unavailable Unavailable Aubrey Jones MD Unavailable [phone] Encounter Details Date Type Department Care Team (Late st Contact Info) Description 12/22/2020 [facility] Medical Advice [facility] [address] [place] [address] Roshni Nascimento, RN Social History Tobacco [...] points; Administer PHQ-9 if positive 6 12/22/2020 [facility] - Occupational Stress Questionnaire Answer [...] st Contact Info) Description 08/18/2023 3:00 PM STEAM SERVICE INSPECTOR Office Visit [facility] [address] [place] [address] Katiana Read MD [address] [facility] [address] [place], [place] 97[address] documented as of this encounter Visit Diagnoses [...] documented as of this encounter Care Teams Unit Operator Relationship Specialty Start Date End Date Len Adhikari MD PCP - General Family Practice 11/08/16 05/09/22 [place] [address] [place] [address] PCP - General Family Medicine 05/18/22 Jovany Gonzalez MD [facility] 6600 [facility] [address] [place], [place] 34[address] Orthopedics 02/15/17 Staci Woodward NP [facility] [address] [facility] [place] [place] [address] Nurse Practitioner Nurse Practitioner Psych/Mental Health 05/10/17 [place] [address] [place] [address] Assigned PCP 11/14/16 01/22/[address] [facility] [address] [place] [address] Charge Entry Dietitian, Registered 07/25/19 Katiana Read MD [address] [facility] 200 [place], [place] 04[address] Assigned Endocrinology Provider 05/02/20 08/01/21 Jese Doyle MD [address]09 [place], [place] 8076[address] Assigned Pulmonology Provider 05/02/20 04/11/21 Roshni Nascimento RN Personal Advocate & Liaison (PAL) Family Medicine 08/18/20 Kiet Swain MD [address] [place] [address] 861404 Referring Physician Psychiatry 09/19/20 Winsome Pike APRN SENIOR SHIPPING CLERK [address] [place] [address] 081544 Nurse Practitioner Psychiatry 09/19/20 Tori Hines [facility] [address] [place] [address] 780504 Shale Miner Blasting Shale Miner Blasting - Clinical 09/19/20 Miranda Queen [facility] [address] [place] [address] Pharmacist Pharmacist 11/12/20 Winsome Pike APRN SENIOR SHIPPING CLERK [address] [place] [address] [phone] Assigned Behavioral Health Provider 01/04/21 07/02/22 Marisel Armando MD [address] [place] [address] Gastroenterology 02/05/21 Marisel Armando MD [address] [place] [address] Assigned Gastroenterology Provider 03/08/21 12/24/22 Inderjit Ugalde MD [address] [facility] 300 [place] [address] Assigned Surgical Provider 02/15/21 08/20/22 Wesley Barrett MD 420 [facility] 96 [place] [address] Assigned Neuroscience Provider 05/10/21 Charles Jaramillo PA-C [address] [address] Assigned Musculoskeletal Provider 04/26/21 10/15/22 Miranda Queen [facility] [address] [place] [address] Assigned MTM Pharmacist 12/05/21 03/26/22 [place] [address] [place] [address] Assigned PCP 01/23/22 05/14/22 Miranda Queen [facility] [address] [place] [address] Assigned MTM Pharmacist 04/07/22 05/14/22 [place] [address] [place] [address] Assigned PCP 05/15/22 Katiana Read MD [address] [facility] 200 [place] [address] Assigned Endocrinology Provider 06/19/22 Meme Sing[place] PhD [address] [place] [address] Assigned Behavioral Health Provider 07/03/22 12/31/22 Deena Garza APRN SENIOR SHIPPING CLERK [address] [address] [place] [address] Assigned Pain Medication Provider 07/19/22 10/29/22 Mary Del Cid, RAFAEL [address] [place] [address] Nurse Practitioner Nurse Practitioner 10/18/22 Elham Stack, [facility] 3033 [place] [address] Pharmacist Pharmacist 10/19/22 Emerita Potter, [facility] Clinic Director Sterile Processing Shale Miner Blasting - Clinical 10/29/22 11/02/22 [place] [address] [address] [place] [address] Assigned Pain Medication Provider 10/30/22 12/03/22 Michelle Guzman, DPM, Podiatry/Foot and Ankle Surgery [address] [place] [address] Assigned Musculoskeletal Provider 10/16/22 04/08/23 [place] [address] [place] [address] Assigned Pain Medication Provider 12/04/22 04/01/23 [place] [address] [place] [address] Nurse Practitioner Nurse Practitioner 01/17/23 01/17/23 Aubrey Jones MD [address] [place] [address] Cardiovascular Disease 03/28/23 Blanquita Morales Charge Entry Diabetes Education 04/25/23 Aubrey Jones MD [address] [place] [address] Assigned Heart and Vascular Provider 05/07/23 documented as of this encounter
--- OUTSIDE RECORDS SUMMARY | 2023-08-03 12:53 | XMS_ITS | Encounter Summary ---
Author Name Unknown Organization [place] Address [address] [place] [address]. [place] [address] Care Team Providers Care Branch Coordinator Name Role Phone Len Adhikari MD Primary Care Provider Jovany Gonzalez MD Unavailable [phone] CrissyStaci jeong OCEAN FORWARDER Unavailable [phone] Len Adhikari MD Unavailable Reanna Smith RD Unavailable Katiana Read MD Unavailable [phone] Jese Doyle MD Unavailable [phone] Roshni Nascimento RN Unavailable Unavailable Kiet Swain MD Unavailable [phone] Winsome Pike APRN FURNITURE MOVER Unavailable +[phone] Tori Hines [facility] Unavailable Miranda Queen [facility] Unavailable Unavailable Winsome Pike APRN FURNITURE MOVER Unavailable [phone] Marisel Armando MD Unavailable Marisel Armando MD Unavailable Inderjit Ugalde MD Unavailable Wesley Barrett MD Unavailable [phone] Charles Jaramillo PA-C Unavailable [phone] Miranda Queen [facility] Unavailable Unavailable Leeann Rinaldi MD Unavailable Miranda Queen [facility] Unavailable Unavailable Dyan Fuentes MD Primary Care Provider [phone] Dyan Fuentes MD Unavailable [phone] Katiana Read MD Unavailable +[phone] Meme Singleton PhD Unavailable +5400 Deena Garza RIB CLOTH KNITTER FURNITURE MOVER Unavailable +[phone] Mary Del Cid NP Unavailable + [phone] Elham Stack [facility] Unavailable [phone] Emerita Potter MACHINE CARTON MARKER Unavailable [phone] Mary Del Cid NP Unavailable + [phone] Michelle Guzman DPM, Podiatry /Foot and Ankle Surgery Unavailable Dyan Fuentes MD Unavailable +[phone] Mary Del Cid NP Unavailable + [phone] Aubrey Jones MD Unavailable [phone] Blanquita Morales Unavailable Unavailable uAbrey Jones MD Unavailable +[phone] Encounter Details Date Type Department Care Team (Late st Contact Info) Description 01/27/2021 [facility] [address] [place] [address] Roshni Nascimento, RN Social History Tobacco [...] you attend chur ch or jainism services? Never 09/20/2020 Do you [...] points; Administer PHQ-9 if positive 2 01/30/2021 [facility] - Occupational Stress Questionnaire Answer [...] Contact Info) Description 08/18/2023 3:00 PM BOAT ENGINE MECHANIC Office Visit [facility] [address] [place] [address] Katiana Read MD [address] [facility] [address] [place], [place] 39[address] documented as of this encounter Visit Diagnoses [...] as of this encounter Care Teams Branch Coordinator Relationship Specialty Start Date End Date Len Adhikari MD PCP - General Family Practice 11/08/16 05/09/22 [place] [address] [place] [address] PCP - General Family Medicine 05/18/22 Jovany Gonzalez MD [facility] [address] [facility] [address] [place], [place] 8[address] Orthopedics 02/15/17 Staci Woodward NP [facility] [address] [facility] [place], [place] [address] Nurse Practitioner Nurse Practitioner Psych/Mental Health 05/10/17 [place] [address] [place] [address] Assigned PCP 11/14/16 01/22/[address] [facility] [address] [place] [address] Assurance Senior Dietitian, Registered 07/25/19 Katiana Read MD [address] [facility] 200 [place], [place] 9[address] Assigned Endocrinology Provider 05/02/20 08/01/21 Jese Doyle MD 9 [place], [place] 0[address] Assigned Pulmonology Provider 05/02/20 04/11/21 Roshni Nascimento, RN Personal Advocate & Liaison (PAL) Family Medicine 08/18/20 Kiet Swain MD [address] [place] [address] 039054 Referring Physician Psychiatry 09/19/20 Winsome Pike APRN FURNITURE MOVER [address] [place] [address] 236034 Nurse Practitioner Psychiatry 09/19/20 Tori Hines [facility] [address] [place] [address] [phone] Exceptional Student Education Aide Exceptional Student Education Aide - Clinical 09/19/20 Miranda Queen RPH [address] [place] [address] Pharmacist Pharmacist 11/12/20 Winsome Pike APRN FURNITURE MOVER [address] [place] [address] 529504 Assigned Behavioral Health Provider 01/04/21 07/02/22 Marisel Armando MD [address] [place] [address] Gastroenterology 02/05/21 Marisel Armando MD [address] [place] [address] Assigned Gastroenterology Provider 03/08/21 12/24/22 Inderjit Ugalde MD [address] [facility] 300 [place] [address] Assigned Surgical Provider 02/15/21 08/20/22 Wesley Barrett MD 420 [facility] 96 [place] [address] Assigned Neuroscience Provider 05/10/21 Charles Jaramillo PA-C [address] [address] Assigned Musculoskeletal Provider 04/26/21 10/15/22 Miranda Queen [facility] [address] [place] [address] Assigned MTM Pharmacist 12/05/21 03/26/22 [place] [address] [place] [address] Assigned PCP 01/23/22 05/14/22 Miranda Queen [facility] [address] [place] [address] Assigned MTM Pharmacist 04/07/22 05/14/22 [place] [address] [place] [address] Assigned PCP 05/15/22 Katiana Read MD [address] [facility] 200 [place] [address] Assigned Endocrinology Provider 06/19/22 Meme Singleton[place] PhD [address] [place] [address] Assigned Behavioral Health Provider 07/03/22 12/31/22 Deena Garza APRN FURNITURE MOVER [address] [place] [address] Assigned Pain Medication Provider 07/19/22 10/29/22 [place] [address] [place] [address] Nurse Practitioner Nurse Practitioner 10/18/22 Elham Stack, [facility] [address] [place] [address] Pharmacist Pharmacist 10/19/22 Emerita Potter, [facility] Clinic Sales Service Route Manager Exceptional Student Education Aide - Clinical 10/29/22 11/02/22 [place] [address] [place] [address] Assigned Pain Medication Provider 10/30/22 12/03/22 Michelle Guzman, DPM, Podiatry/Foot and Ankle Surgery [address] [place] [address] Assigned Musculoskeletal Provider 10/16/22 04/08/23 [place] [address] [address] Assigned Pain Medication Provider 12/04/22 04/01/23 [place] [address] [place] [address] Nurse Practitioner Nurse Practitioner 01/17/23 01/17/23 Aubrey Jones MD [address] [place] [address] Cardiovascular Disease 03/28/23 Blanquita Morales Assurance Senior Diabetes Education 04/25/23 Aubrey Jones MD [address] [place] [address] Assigned Heart and Vascular Provider 05/07/23 documented as of this encounter
--- OUTSIDE RECORDS SUMMARY | 2023-08-03 12:53 | XMS_ITS | Encounter Summary ---
Author Name Unknown Organization [facility] Address [address] [place] [address]. [place] [address] Care Team Providers Care Casino Beverage Server Name Role Phone Len Adhikari MD Primary Care Provider Jovany Gonzalez MD Unavailable [phone] CrissyStaci jeong ASSET PROTECTION OFFICER Unavailable [phone] Len Adhikari MD Unavailable Reanna Smith RD Unavailable Katiana Read MD Unavailable +[phone] Jese Doyle MD Unavailable +[phone] Roshni Nascimento RN Unavailable Unavailable Kiet Swain MD Unavailable [phone] Winsome Pike APRN CLINICAL THERAPIST Unavailable +[phone] Tori Hnies [facility] Unavailable Miranda Queen [facility] Unavailable Unavailable Winsome Pike APRN CLINICAL THERAPIST Unavailable +[phone] Marisel Armando MD Unavailable Marisel Armando MD Unavailable Inderjit Ugalde MD Unavailable [phone] Wesley Barrett MD Unavailable +[phone] Charles Jaramillo PA-C Unavailable [phone] Miranda Queen [facility] Unavailable Unavailable Leeann Rinaldi MD Unavailable Miranda Queen [facility] Unavailable Unavailable Dyan Fuentes MD Primary Care Provider [phone] Dyan Fuentes MD Unavailable [phone] Katiana Read MD Unavailable +[phone] Meme Singleton PhD Unavailable +[phone] Deena Garza HEAD BUTLER CLINICAL THERAPIST Unavailable +[phone] Mary Del Cid NP Unavailable + [phone] Elham Stack [facility] Unavailable +[phone] Emerita Potter HEALTH UNIT CLERK Unavailable +[phone] Mary Del Cid NP Unavailable + [phone] Michelle Guzman DPM, Podiatry /Foot and Ankle Surgery Unavailable Dyan Fuentes MD Unavailable [phone] Mary Del Cid NP Unavailable + [phone] Aubrey Jones MD Unavailable [phone] Blanquita Morales Unavailable Unavailable Aubrey Jones MD Unavailable +[phone] Encounter Details Date Type Department Care Team (Late st Contact Info) Description 12/10/2020 [facility] Medical Advice [facility] [address] [place] [phone] Lenka Healy Social History Tobacco Use Types [...] you attend chur ch or voodoo services? Never 09/20/2020 Do you belong to [...] Answer Date Recorded PHQ-2 Score 5 11/19/2020 [facility] - Occupational Stress Questionnaire Answer Date Recorded [...] st Contact Info) Description 08/18/2023 3:00 PM BUSH AND VINE FARMER FRUIT CROPS Office Visit [facility] [address] [place] [address] Katiana Read MD [address] [place] [address] documented as of this encounter Visit Diagnoses [...] documented as of this encounter Care Teams Casino Beverage Server Relationship Specialty Start Date End Date Len Adhikari MD PCP - General Family Practice 11/08/16 05/09/22 [place] [address] [place] [address] PCP - General Family Medicine 05/18/22 Jovany Gonzalez MD [facility] [address] [facility] [address] [place], [place] [address] Orthopedics 02/15/17 Staci Woodward, ASSET PROTECTION OFFICER CLINICS [address] [facility] [place], [place] [address] Nurse Practitioner Nurse Practitioner Psych/Mental Health 05/10/17 [place] [address] [place] [address] Assigned PCP 11/14/16 01/22/[address] [facility] [address] [place] [address] Packaging Machine Supplies Distributor Dietitian, Registered 07/25/19 Ktaiana Read MD [address] [facility] 200 [place] [address] Assigned Endocrinology Provider 05/02/20 08/01/21 Jese Doyle MD 909 [place], [place] 79[address] Assigned Pulmonology Provider 05/02/20 04/11/21 Roshni Nascimento, RN Personal Advocate & Liaison (PAL) Family Medicine 08/18/20 Kiet Swain MD [address] [place] [address] 355644 Referring Physician Psychiatry 09/19/20 Winsome Pike APRN CLINICAL THERAPIST [address] [place] [address] 765264 Nurse Practitioner Psychiatry 09/19/20 Tori Hines [facility] [address] [place] [address] [id number] Brick Kiln Burner Brick Kiln Burner - Clinical 09/19/20 [place] [address] [place] [address] Pharmacist Pharmacist 11/12/20 Winsome Pike APRN CLINICAL THERAPIST [address] [place] [address] Assigned Behavioral Health Provider 01/04/21 07/02/22 Marisel Armando MD [address] [place] [address] Gastroenterology 02/05/21 Marisel Armando MD [address] [place] [address] Assigned Gastroenterology Provider 03/08/21 12/24/22 Inderjit Ugalde MD [address] [facility] 300 [place] [address] Assigned Surgical Provider 02/15/21 08/20/22 Wesley Barrett MD 420 [facility] 96 [place] [address] Assigned Neuroscience Provider 05/10/21 Charles Jaramillo PA-C [address] [address] Assigned Musculoskeletal Provider 04/26/21 10/15/22 Miranda Queen [facility] [address] [place] [address] Assigned MTM Pharmacist 12/05/21 03/26/22 [place] [address] [place] [address] Assigned PCP 01/23/22 05/14/22 Miranda Queen [facility] [address] [place] [address] Assigned MTM Pharmacist 04/07/22 05/14/22 [place] [address] [place] [address] Assigned PCP 05/15/22 Katiana Read MD [address] [facility] 200 [place], [place] 907540 Assigned Endocrinology Provider 06/19/22 Meme Sing[place], PhD [address] [facility] [place] [address] Assigned Behavioral Health Provider 07/03/22 12/31/22 Deena Garza, HEAD BUTLER CLINICAL THERAPIST [address] [address] [place] [address] Assigned Pain Medication Provider 07/19/22 10/29/22 Mary Del Cid, RAFAEL [address] [place] [address] Nurse Practitioner Nurse Practitioner 10/18/22 Elham Stack, [facility] [address] [facility] [place], [place] 80[address] Pharmacist Pharmacist 10/19/22 Emerita Potter, [facility] Clinic Deckhand Crab Boat Brick Kiln Burner - Clinical 10/29/22 11/02/22 [place] [address] [address] [place] [address] Assigned Pain Medication Provider 10/30/22 12/03/22 Michelle Guzman, DPM, Podiatry/Foot and Ankle Surgery [address] [facility]U [facility] [place] [address] Assigned Musculoskeletal Provider 10/16/22 04/08/23 [place] [address] [place] [address] Assigned Pain Medication Provider 12/04/22 04/01/23 [place] [address] [address] [place] [address] Nurse Practitioner Nurse Practitioner 01/17/23 01/17/23 Aubrey Jones MD [address] [place] [address] Cardiovascular Disease 03/28/23 Blanquita Morales Packaging Machine Supplies Distributor Diabetes Education 04/25/23 Aubrey Jones MD [address] [place] [address] Assigned Heart and Vascular Provider 05/07/23 documented as of this encounter
--- OUTSIDE RECORDS SUMMARY | 2023-08-03 12:53 | XMS_ITS | Encounter Summary ---
Author Name Unknown Organization [facility] Address [address] [place] [address]. [place] [address] Care Team Providers Care Trumpet Player Name Role Phone Len Adhikari MD Primary Care Provider Jovany Gonzalez MD Unavailable CrissyStaci jeong PLANNING ASSISTANT Unavailable [phone] Len Adhikari MD Unavailable [phone] Unavailable +[phone] Katiana Read MD Unavailable [phone] Jese Doyle MD Unavailable [phone] Roshni Nascimento RN Unavailable Unavailable Kiet Swain MD Unavailable [phone] Winsome Pike APRN TITLE I COORDINATOR Unavailable +[phone] Tori Hines [facility] Unavailable Miranda Queen [facility] Unavailable Unavailable Winsome Pike APRN TITLE I COORDINATOR Unavailable [phone] Marisel Armando MD Unavailable Marisel Armando MD Unavailable Inderjit Ugalde MD Unavailable [phone] Wesley Barrett MD Unavailable [phone] Charles Jaramillo PA-C Unavailable [phone] Miranda Queen [facility] Unavailable Unavailable Leeann Rinaldi MD Unavailable Miranda Queen [facility] Unavailable Unavailable Dyan Fuentes MD Primary Care Provider [phone] Dyan Fuentes MD Unavailable [phone] Katiana Read MD Unavailable +[phone] Meme Singleton PhD Unavailable +5400 Deena Garza GIMP TACKER TITLE I COORDINATOR Unavailable +[phone] Mary Del Cid NP Unavailable + [phone] Elham Stack [facility] Unavailable [phone] Emerita Potter ELEMENTARY SCHOOL TUTOR Unavailable +[phone] Mary Del Cid NP Unavailable + [phone] Michelle Guzman DPM, Podiatry /Foot and Ankle Surgery Unavailable Dyan Fuentes MD Unavailable +[phone] Mary Del Cid NP Unavailable + [phone] Aubrey Jones MD Unavailable [phone] Blanquita Morales Unavailable Unavailable Aubrey Jones MD Unavailable [phone] Encounter Details Date Type Department Care Team (Late st Contact Info) Description 12/22/2020 [facility] [address] [place] [phone] Roshni Nascimento, RN Social History Tobacco [...] points; Administer PHQ-9 if positive 6 12/22/2020 [facility] [...] st Contact Info) Description 08/18/2023 3:00 PM FOURDRINIER OPERATOR Office Visit [facility] [address] [place] [address] Katiana Read MD [address] [address] [place], [place] [address] documented as of this encounter Visit Diagnoses [...] documented as of this encounter Care Teams Trumpet Player Relationship Specialty Start Date End Date Len Adhikari MD PCP - General Family Practice 11/08/16 05/09/22 [place] [address] [place] [address] PCP - General Family Medicine 05/18/22 Jovany Gonzalez MD [facility] [address] [facility] [address] [place], [place] 2[address] Orthopedics 02/15/17 Staci Woodward NP [facility] [address] [facility] [place] [place] [address] Nurse Practitioner Nurse Practitioner Psych/Mental Health 05/10/17 [place] [address] [place] [address] Assigned PCP 11/14/16 01/22/[address] [facility] [address] [place] [address] Metallurgist Helper Dietitian, Registered 07/25/19 Katiana Read MD [address] [facility] [address] [place], [place] [address] Assigned Endocrinology Provider 05/02/20 08/01/21 Jese Doyle MD [address] [place], [place] [address] Assigned Pulmonology Provider 05/02/20 04/11/21 Roshni Nascimento RN Personal Advocate & Liaison (PAL) Family Medicine 08/18/20 Kiet Swain MD [address] [place] [address] 827134 Referring Physician Psychiatry 09/19/20 Winsome Pike APRN TITLE I COORDINATOR [address] [place] [address] 308134 Nurse Practitioner Psychiatry 09/19/20 Tori Hines [facility] [address] [place] [address] [phone] Orchestra Director Orchestra Director - Clinical 09/19/20 Miranda Queen RPH [address] [place] [address] Pharmacist Pharmacist 11/12/20 Winsome Pike APRN TITLE I COORDINATOR [address] [place] [address] 284224 Assigned Behavioral Health Provider 01/04/21 07/02/22 Marisel Armando MD [address] [place] [address] Gastroenterology 02/05/21 Marisel Armando MD [address] [place] [address] Assigned Gastroenterology Provider 03/08/21 12/24/22 Inderjit Ugalde MD [address] [facility] 300 [place] [address] Assigned Surgical Provider 02/15/21 08/20/22 Wesley Barrett MD 420 [facility] 96 [place] [address] Assigned Neuroscience Provider 05/10/21 Charles Jaramillo PA-C [address] [address] Assigned Musculoskeletal Provider 04/26/21 10/15/22 Miranda Queen [facility] [address] [place] [address] Assigned MTM Pharmacist 12/05/21 03/26/22 [place] [address] [place] [address] Assigned PCP 01/23/22 05/14/22 Miranda Queen [facility] [address] [place] [address] Assigned MTM Pharmacist 04/07/22 05/14/22 [place] [address] [place] [address] Assigned PCP 05/15/22 Katiana Read MD [address] [facility] 200 [place] [address] Assigned Endocrinology Provider 06/19/22 Meme Singleton, PhD [address] [place] [address] Assigned Behavioral Health Provider 07/03/22 12/31/22 Deena Garza APRN TITLE I COORDINATOR [address] [place] [address] Assigned Pain Medication Provider 07/19/22 10/29/22 Mary Del Cid, RAFAEL [address] [place] [address] Nurse Practitioner Nurse Practitioner 10/18/22 Elham Stack, [facility] [address] [place] [address] Pharmacist Pharmacist 10/19/22 Emerita Potter, [facility] Clinic Production Engineer Track Orchestra Director - Clinical 10/29/22 11/02/22 [place] [address] [place] [address] Assigned Pain Medication Provider 10/30/22 12/03/22 Michelle Guzman, DPM, Podiatry/Foot and Ankle Surgery [address] [place] [address] Assigned Musculoskeletal Provider 10/16/22 04/08/23 [place] [address] [place] [address] Assigned Pain Medication Provider 12/04/22 04/01/23 [place] [address] [place] [address] Nurse Practitioner Nurse Practitioner 01/17/23 01/17/23 Aubrey Jones MD [address] [place] [address] Cardiovascular Disease 03/28/23 Blanquita Morales Metallurgist Helper Diabetes Education 04/25/23 Aubrey Jones MD [address] [place] [address] Assigned Heart and Vascular Provider 05/07/23 documented as of this encounter
--- OUTSIDE RECORDS SUMMARY | 2023-08-03 12:53 | XMS_ITS | Encounter Summary ---
Author Name Unknown Organization [facility] Address [address] [place] [address]. [place] [address] Care Team Providers Care Distribution Estimator Name Role Phone Len Adhikari MD Primary Care Provider Jovany Gonzalez MD Unavailable CrissyStaci jeong CHARGING MACHINE OPERATOR Unavailable [phone] Len Adhikari MD Unavailable [phone] Unavailable Katiana Read MD Unavailable [phone] Jese Doyle MD Unavailable [phone] Roshni Nascimento RN Unavailable Unavailable Kiet Swain MD Unavailable Winsome Pike APRN SUPERVISOR DRY PASTE Unavailable +[phone] Tori Hines [facility] Unavailable Miranda Queen [facility] Unavailable Unavailable Winsome Pike APRN SUPERVISOR DRY PASTE Unavailable [phone] Marisel Armando MD Unavailable Marisel Armando MD Unavailable Inderjit Ugalde MD Unavailable [phone] Wesley Barrett MD Unavailable +[phone] Charles Jaramillo PA-C Unavailable [phone] Miranda Queen [facility] Unavailable Unavailable Leeann Rinaldi MD Unavailable Miranda Queen [facility] Unavailable Unavailable Dyan Fuentes MD Primary Care Provider [phone] Dyan Fuentes MD Unavailable [phone] Katiana Read MD Unavailable +[phone] Meme Singleton PhD Unavailable +[phone] Deena Garza BIOINFORMATICS SUPPORT SPECIALIST SUPERVISOR DRY PASTE Unavailable +[phone] Mary Del Cid NP Unavailable + [phone] Elham Stack [facility] Unavailable +[phone] Emerita Potter TANDEM MILL ROLLER Unavailable [phone] Mary Del Cid NP Unavailable + [phone] Michelle Guzman DPM, Podiatry /Foot and Ankle Surgery Unavailable Dyan Fuentes MD Unavailable [phone] Mary Del Cid NP Unavailable + [phone] Aubrey Jones MD Unavailable [phone] Blanquita Morales Unavailable Unavailable Aubrey Jones MD Unavailable +[phone] Encounter Details Date Type Department Care Team (Late st Contact Info) Description 01/12/2021 Telephone [facility] Behavioral Health Intake [address] [place] [phone] Generic, Behavioral Intake, Social History Tobacco Use [...] How often do you attend chur or hinduism services? Never 09/20/2020 Do you belong to [...] points; Administer PHQ-9 if positive 6 12/22/2020 [facility] - [...] st Contact Info) Description 08/18/2023 3:00 PM BUILDING CUSTODIAN Office Visit [facility] [address] [place] [address] Katiana Read MD [address] [place] [address] documented as of this encounter Visit Diagnoses [...] documented as of this encounter Care Teams Distribution Estimator Relationship Specialty Start Date End Date Len Adhikari MD PCP - General Family Practice 11/08/16 05/09/22 [place] [address] [place] [address] PCP - General Family Medicine 05/18/22 Jovany Gonzalez MD [facility] 66[address] [facility] 605 [place], [place] [address] Orthopedics 02/15/17 Staci Woodward NP [place] [address] [place], [place] [phone] Nurse Practitioner Nurse Practitioner Psych/Mental Health 05/10/17 [place] [address] [facility] [place] [address] Assigned PCP 11/14/16 01/22/[address] [place] [address] [place] [address] Protective Signal Installer Dietitian, Registered 07/25/19 Katiana Read MD [address] [place] [address] Assigned Endocrinology Provider 05/02/20 08/01/21 Jese Doyle MD 909 [place], [place] [address] Assigned Pulmonology Provider 05/02/20 04/11/21 Roshni Nascimento, RN Personal Advocate & Liaison (PAL) Family Medicine 08/18/20 Kiet Swain MD [address] [place] [address] [id number] Referring Physician Psychiatry 09/19/20 Winsome Pike APRN SUPERVISOR DRY PASTE [facility] [address] 409324 Nurse Practitioner Psychiatry 09/19/20 Tori Hines, [facility] [address] [place] [address] Senior Regulatory Affairs Specialist Senior Regulatory Affairs Specialist - Clinical 09/19/20 Miranda Queen, [facility] [address] [place] [address] Pharmacist Pharmacist 11/12/20 Winsome Pike APRN SUPERVISOR DRY PASTE [address] 246624 Assigned Behavioral Health Provider 01/04/21 07/02/22 Marisel Armando MD [address] [place] [address] 928995 Gastroenterology 02/05/21 Marisel Armando MD [address] [place] [address] 597835 Assigned Gastroenterology Provider 03/08/21 12/24/22 Inderjit Ugalde MD [address] [facility] 300 [place], [place] [address] Assigned Surgical Provider 02/15/21 08/20/22 Wesley Barrett MD 420 [facility] 96 [place], [place] [address] Assigned Neuroscience Provider 05/10/21 Charles Jaramillo PA-C [address] [facility] [address] Assigned Musculoskeletal Provider 04/26/21 10/15/22 Miranda Queen RPH [address] [place] [address] Assigned MTM Pharmacist 12/05/21 03/26/22 [place] [address] [place] [address] Assigned PCP 01/23/22 05/14/22 Miranda Queen [facility] [address] [place] [address] Assigned MTM Pharmacist 04/07/22 05/14/22 [place] [address] [place] [address] Assigned PCP 05/15/22 Katiana Read MD [address] [place] [address] Assigned Endocrinology Provider 06/19/22 Meme Singleton, PhD [address] [place] [address] Assigned Behavioral Health Provider 07/03/22 12/31/22 Deena Garza APRN SUPERVISOR DRY PASTE [address] [place] [address] Assigned Pain Medication Provider 07/19/22 10/29/22 Mary Del Cid, RAFAEL [address] [place] [address] Nurse Practitioner Nurse Practitioner 10/18/22 Elham Stack, [facility] [address] [place] [address] Pharmacist Pharmacist 10/19/22 Emerita Potter, [facility] Clinic Account Installation Specialist Senior Regulatory Affairs Specialist - Clinical 10/29/22 11/02/22 [place] [address] [place] [address] Assigned Pain Medication Provider 10/30/22 12/03/22 Michelle Guzman, ALDOM, Podiatry/Foot and Ankle Surgery [address] [place] [address] Assigned Musculoskeletal Provider 10/16/22 04/08/23 [place] [address] [place] [address] Assigned Pain Medication Provider 12/04/22 04/01/23 [place] [address] [place] [address] Nurse Practitioner Nurse Practitioner 01/17/23 01/17/23 Aubrey Jones MD [address] [place] [address] Cardiovascular Disease 03/28/23 Blanquita Morales Protective Signal Installer Diabetes Education 04/25/23 Aubrey Jones MD [address] [place] [address] Assigned Heart and Vascular Provider 05/07/23 documented as of this encounter
--- OUTSIDE RECORDS SUMMARY | 2023-08-03 12:54 | XMS_ITS | Encounter Summary ---
Author Name Unknown Organization [place] Address [address] [place] [address]. [place] [address] Care Team Providers Care Bread Supervisor Name Role Phone Len Adhikari MD Primary Care Provider Jovany Gonzalez MD Unavailable CrissyStaci jeong FILLER FEEDER Unavailable [phone] Len Adhikari MD Unavailable Reanna Smith RD Unavailable Katiana Read MD Unavailable [phone] Alexander López MD Unavai lable Jese Doyle MD Unavailable +[phone] Roshni Nascimento RN Unavailable Unavailable Johana Groves [facility] Unavailable Kiet Swain MD Unavailable [phone] Winsome Pike APRN FISHER DIP NET Unavailable +[phone] Tori Hines [facility] Unavailable Miranda Queen [facility] Unavailable Unavailable Winsome Pike APRN FISHER DIP NET Unavailable +[phone] Marisel Armando MD Unavailable Marisel Armando MD Unavailable Inderjit Ugalde MD Unavailable [phone] Wesley Barrett MD Unavailable +[phone] Charles Jaramillo PA-C Unavailable [phone] Miranda Queen [facility] Unavailable Unavailable Leeann Rinaldi MD Unavailable Miranda Queen [facility] Unavailable Unavailable Dyan Fuentes MD Primary Care Provider [phone] Dyan Fuentes MD Unavailable [phone] Katiana Read MD Unavailable [phone] Meme Singleton PhD Unavailable +[phone] Deena Garza HONEY PRODUCER FISHER DIP NET Unavailable +[phone] Mary Del Cid NP Unavailable + [phone] Elham Stack [facility] Unavailable +[phone] Emerita Potter ELECTROPLATING WORKER Unavailable +[phone] Mary Del Cid NP Unavailable [phone] Michelle Guzman DPM, Podiatry /Foot and Ankle Surgery Unavailable Dyan Fuentes MD Unavailable +[phone] Mary Del Cid NP Unavailable + [phone] Aubrey Jones MD Unavailable [phone] Blanquita Morales Unavailable Unavailable Aubrey Jones MD Unavailable [phone] Encounter Details Date Type Department Care Team (Late st Contact Info) Description 10/31/2020 [facility] Mental Health & Addiction [address] [address] Tori Hines, ELECTROPLATING WORKER [address] [place] [address] Social History Tobacco Use Types [...] Answer Date Recorded PHQ-2 Score 2 01/01/2019 [facility] [place] of Occupat ional Health - Occupational Stress [...] st Contact Info) Description 08/18/2023 3:00 PM WELD LAY OUT WORKER Office Visit [place] [address] [place] [address] Katiana Read MD [address] [place], [place] [address] documented as of this encounter Visit Diagnoses [...] documented as of this encounter Care Teams Bread Supervisor Relationship Specialty Start Date End Date Len Adhikari MD PCP - General Family Practice 11/08/16 05/09/22 [place] [address] [place] [address] PCP - General Family Medicine 05/18/22 Jovany Gonzalez MD [facility] 6600 [facility] [address] [place] [address] Orthopedics 02/15/17 Staci Woodward FILLER FEEDER [place] [address] [place] [address] Nurse Practitioner Nurse Practitioner Psych/Mental Health 05/10/17 [place] [address] [facility] [place] [address] Assigned PCP 11/14/16 01/22/[address] [facility] [address] [place] [address] Utility Bag Assembler Dietitian, Registered 07/25/19 Katiana Read MD [address] [facility] 200 [place] [address] Assigned Endocrinology Provider 05/02/20 08/01/21 Alexander López MD [address] [place], [place] [address] Assigned Sleep Provider 05/02/20 11/15/20 Jese Doyle MD 909 [facility] [place], [place] [address] Assigned Pulmonology Provider 05/02/20 04/11/21 Roshni Nascimento, RN Personal Advocate & Liaison (PAL) Family Medicine 08/18/20 Johana Groves, [facility] [address] [place] [phone] Pharmacist Pharmacist 08/28/20 11/26/20 Kiet Swain MD 2450 [facility] S [address] [place], [place] 9[address] Referring Physician Psychiatry 09/19/20 Winsome Pike APRN FISHER DIP NET [address] [place] [address] [phone] Nurse Practitioner Psychiatry 09/19/20 Tori Hines, [facility] [address] [place], [place] [id number] Jeep Mechanic Jeep Mechanic - Clinical 09/19/20 Miranda Queen [facility] [address] [place] [address] Pharmacist Pharmacist 11/12/20 Winsome Pike APRN FISHER DIP NET [address] [place] [address] [phone] Assigned Behavioral Health Provider 01/04/21 07/02/22 Marisel Armando MD [address] [place] [address] 777005 Gastroenterology 02/05/21 Marisel Armando MD [address] [place] [address] [phone] Assigned Gastroenterology Provider 03/08/21 12/24/22 Inderjit Ugalde MD [address] [place] [facility] 300 [place] [address] Assigned Surgical Provider 02/15/21 08/20/22 Wesley Barrett MD [address] [place] [address] Assigned Neuroscience Provider 05/10/21 Charles Jaramillo PA-C 6545 [facility] 450 [place] [address] Assigned Musculoskeletal Provider 04/26/21 10/15/22 Miranda Queen [facility] [address] [place] [address] Assigned MTM Pharmacist 12/05/21 03/26/22 [place] [address] [place] [address] Assigned PCP 01/23/22 05/14/22 Miranda Queen [facility] [address] [place] [address] Assigned MTM Pharmacist 04/07/22 05/14/22 [place] [address] [place] [address] Assigned PCP 05/15/22 Katiana Read MD [address] [place] [address] 200 [place], [place] [address] Assigned Endocrinology Provider 06/19/22 [place] [address] [place] [address] Assigned Behavioral Health Provider 07/03/22 12/31/22 Deena Garza, HONEY PRODUCER [place] [address] [place] [address] Assigned Pain Medication Provider 07/19/22 10/29/22 Mary Del Cid, RAFAEL [address] [place] [address] Nurse Practitioner Nurse Practitioner 10/18/22 Elham Stack, [facility] [address] [facility] [place] [place] [address] Pharmacist Pharmacist 10/19/22 Emerita Potter, [facility] Clinic Solderer Electronic Jeep Mechanic - Clinical 10/29/22 11/02/22 [place] [address] [place] [address] Assigned Pain Medication Provider 10/30/22 12/03/22 Michelle Guzman DPM, Podiatry/Foot and Ankle Surgery [address] [place] [address] Assigned Musculoskeletal Provider 10/16/22 04/08/23 [place] [address] [place] [address] Assigned Pain Medication Provider 12/04/22 04/01/23 [place] [address] [place] [address] Nurse Practitioner Nurse Practitioner 01/17/23 01/17/23 Aubrey Jones MD [address] [place] [address] Cardiovascular Disease 03/28/23 Blanquita Morales Utility Bag Assembler Diabetes Education 04/25/23 Aubrey Jones MD [address] [place] [address] Assigned Heart and Vascular Provider 05/07/23 documented as of this encounter
--- OUTSIDE RECORDS SUMMARY | 2023-08-03 12:54 | XMS_ITS | Encounter Summary ---
Author Name Unknown Organization [place] Address [address] [place] [address]. [place] [address] Care Team Providers Care Bleach Boiler Filler Name Role Phone Len Adhikari MD Primary Care Provider Jovany Gonzalez MD Unavailable CrissyStaci jeong AIR CONDITIONING SHEET METAL INSTALLER Unavailable [phone] Len Adhikari MD Unavailable [phone] Unavailable Katiana Read MD Unavailable [phone] Alexander López MD Unavai lable Jese Doyle MD Unavailable [phone] Roshni Nascimento RN Unavailable Unavailable Johana Groves [facility] Unavailable Kiet Swain MD Unavailable [phone] Winsome Pike APRN BIRTHING NURSE Unavailable +[phone] Tori Hines [facility] Unavailable Miranda Queen [facility] Unavailable Unavailable Winsome Pike APRN BIRTHING NURSE Unavailable +[phone] Marisel Armando MD Unavailable Marisel Armando MD Unavailable Inderjit Ugalde MD Unavailable [phone] Wesley Barrett MD Unavailable [phone] Charles Jaramillo PA-C Unavailable + [phone] Miranda Queen [facility] Unavailable Unavailable Leeann Rinaldi MD Unavailable Miranda Queen [facility] Unavailable Unavailable Dyan Fuentes MD Primary Care Provider [phone] Dyan Fuentes MD Unavailable [phone] Katiana Read MD Unavailable [phone] Meme Singleton PhD Unavailable [phone] Deena Garza MECHANICAL SHOVEL OPERATOR BIRTHING NURSE Unavailable +[phone] Mary Del Cid NP Unavailable + [phone] Elham Stack [facility] Unavailable [phone] Emerita Potter SITE SAFETY REPRESENTATIVE Unavailable [phone] Mary Del Cid NP Unavailable +[phone] [...] *[place] [address] [place] [address] Referral ID Status Reason Start Date Expiration Date Visits Re quested Visits Authorized [id number] Closed 11/12/2020 11/12/2021 1 1 Reason for Visit * Reason Onset Date Comments MyChart Communication 11/04/2020 Encounter Details Date Type Department Care Team (Late st Contact Info) Description 11/04/2020 MyC Medical Advice [facility] [address] [place] [phone] [place] [address] [place] [address] MyChart Communication Social History Tobacco [...] often do you attend chur ch or orthodox services? Never 09/20/2020 Do you belong [...] Answer Date Recorded PHQ-2 Score 6 11/06/2020 [facility] - Occupational Stress Questionnaire [...] - 11/11/2020 12:26 PM CDT Routing to [facility] 3 pool, See below Suhail Montiel RN * Telephone Encounter - Len Adhikari MD - 11/11/2020 7:07 AM CDT Where is lump located - we usually would order diagnostic mammo and US of affected area if there kushal concern specifically. documented in this encounter Plan of Treatment Upcoming Encounters Date Type Department Care Team (Late st Contact Info) Description 08/18/2023 3:00 PM COMMERCIAL ATTACHE Office Visit [facility] [address] [facility] [address] [place] [address] Katiana Read MD [address] [place] [address] Scheduled Orders Name Type Priority Associated Diagnoses [...] documented as of this encounter Care Teams Bleach Boiler Filler Relationship Specialty Start Date End Date Len Adhikari MD PCP - General Family Practice 11/08/16 05/09/22 [place] [address] [place] [address] PCP - General Family Medicine 05/18/22 Jovany Gonzalez MD [facility] 6600 [facility] 605 [place] [address] Orthopedics 02/15/17 Staci Woodward AIR CONDITIONING SHEET METAL INSTALLER [facility] [address] [place] [address] Nurse Practitioner Nurse Practitioner Psych/Mental Health 05/10/17 [place] [address] [facility] [place] [address] Assigned PCP 11/14/16 01/22/[address] [facility] [address] [place] [address] Deicer Repairer Dietitian, Registered 07/25/19 Katiana Read MD [address] [place] [address] 200 [place] [address] Assigned Endocrinology Provider 05/02/20 08/01/21 Alexander López MD 606 24[facility] 106 [place] [address] Assigned Sleep Provider 05/02/20 11/15/20 Jese Doyle MD 909 [facility] [place] [address] Assigned Pulmonology Provider 05/02/20 04/11/21 Roshni Nascimento, RN Personal Advocate & Liaison (PAL) Family Medicine 08/18/20 Johana Groves, [facility] [address] [place] [address] Pharmacist Pharmacist 08/28/20 11/26/20 Kiet Swain MD 2450 [facility] [address] [place] [address] 815244 Referring Physician Psychiatry 09/19/20 Winsome Pike APRN BIRTHING NURSE [address] [place] [address] 409154 Nurse Practitioner Psychiatry 09/19/20 Tori Hines, [facility] [address] [place] [address] 879414 Liver Trimmer Liver Trimmer - Clinical 09/19/20 Miranda Queen [facility] [address] [place] [address] Pharmacist Pharmacist 11/12/20 Winsome Pike APRN BIRTHING NURSE [address] [place] [address] 189444 Assigned Behavioral Health Provider 01/04/21 07/02/22 Marisel Armando MD [address] [place] [address] 047035 Gastroenterology 02/05/21 Marisel Armando MD [address] [place] [address] Assigned Gastroenterology Provider 03/08/21 12/24/22 Inderjit Ugalde MD [address] [address] Assigned Surgical Provider 02/15/21 08/20/22 Wesley Barrett MD [address] [place] [address] Assigned Neuroscience Provider 05/10/21 Charles Jaramillo PA-C 6545 [facility] 450 [place] [address] Assigned Musculoskeletal Provider 04/26/21 10/15/22 [facility] [address] [place] [address] Assigned MTM Pharmacist 12/05/21 03/26/22 [place] [address] [place] [address] Assigned PCP 01/23/22 05/14/22 Miranda Queen [facility] [address] [place] [address] Assigned MTM Pharmacist 04/07/22 05/14/22 [place] [address] [place] [address] Assigned PCP 05/15/22 Katiana Read MD [address] [place] [address] 200 [place] [address] Assigned Endocrinology Provider 06/19/22 [place] [address] [place] [address] Assigned Behavioral Health Provider 07/03/22 12/31/22 Deena Garza APRN BIRTHING NURSE [address] [place] [address] Assigned Pain Medication Provider 07/19/22 10/29/22 [place] [address] [address] [place] [address] Nurse Practitioner Nurse Practitioner 10/18/22 Elham Stack, [facility] [address] [place] [address] Pharmacist Pharmacist 10/19/22 Emerita Pottre, [facility] Clinic Certified Novell Engineer Liver Trimmer - Clinical 10/29/22 11/02/22 [place] [address] [address] [place] [address] Assigned Pain Medication Provider 10/30/22 12/03/22 Michelle Guzman, DPM, Podiatry/Foot and Ankle Surgery [address] [place] [address] Assigned Musculoskeletal Provider 10/16/22 04/08/23 [place] [address] [place] [address] Assigned Pain Medication Provider 12/04/22 04/01/23 [place] [address] [address] [place] [address] Nurse Practitioner Nurse Practitioner 01/17/23 01/17/23 Aubrey Jones MD [address] [place] [address] Cardiovascular Disease 03/28/23 Blanquita Morales Deicer Repairer Diabetes Education 04/25/23 Aubrey Jones MD [address] [place] 344945 Assigned Heart and Vascular Provider 05/07/23 documented as of this encounter
--- OUTSIDE RECORDS SUMMARY | 2023-08-03 12:54 | XMS_ITS | Encounter Summary ---
Author Name Unknown Organization [address] Address [address] [place] [address] Care Team Providers Care Courtesy Car Driver Name Role Phone Len Adhikari MD Primary Care Provider Jovany Gonzalez MD Unavailable CrissyStaci jeong ROOF SHINGLER Unavailable [phone] Len Adhikari MD Unavailable [phone] Unavailable Katiana Read MD Unavailable [phone] Jese Doyle MD Unavailable [phone] Roshni Nascimento RN Unavailable Unavailable Johana Groves [facility] Unavailable [phone] Kiet Swain MD Unavailable [phone] Winsome Pike APRN HYDRAULIC MODELING ENGINEER Unavailable +[phone] Tori Hines [facility] Unavailable Miranda Queen [facility] Unavailable Unavailable Winsome Pike APRN HYDRAULIC MODELING ENGINEER Unavailable [phone] Marisel Armando MD Unavailable Marisel Armando MD Unavailable Inderjit Ugalde MD Unavailable [phone] Wesley Barrett MD Unavailable [phone] EllaCharles jimenez Michele GEIGER Unavailable [phone] Miranda Queen [facility] Unavailable Unavailable Leeann Rinaldi MD Unavailable Miranda Queen [facility] Unavailable Unavailable Dyan Fuentes MD Primary Care Provider [phone] Dyan Fuentes MD Unavailable +[phone] Katiana Read MD Unavailable [phone] Meme Singleton PhD Unavailable +[phone] Deena Garza COAL DIGGER HYDRAULIC MODELING ENGINEER Unavailable +[phone] Mary Del Cid NP Unavailable + [phone] Elham Stack [facility] Unavailable +[phone] Emerita Potter [facility] Unavailable +[phone] Mary Del Cid NP Unavailable + [phone] Michelle Guzman DPM, Podiatry /Foot and Ankle Surgery Unavailable Dyan Fuentes MD Unavailable [phone] Mary Del Cid NP Unavailable [phone] Aubrey Jones MD Unavailable [phone] Blanquita Morales Unavailable Unavailable Aubrey Jones MD Unavailable [phone] Encounter Details Date Type Department Care Team (Late st Contact Info) Description 11/18/2020 [facility] Mental Health & Addiction Services [address] [place] [address] Gavin Patel Social History Tobacco [...] Answer Date Recorded PHQ-2 Score 5 11/19/2020 [facility]ational [facility] Questionnaire Answer Date [...] st Contact Info) Description 08/18/2023 3:00 PM BLENDING MACHINE OPERATOR Office Visit [facility] [address] [place] [address] Katiana Read MD [address] [place] [address] documented as of this encounter Visit Diagnoses [...] documented as of this encounter Care Teams Courtesy Car Driver Relationship Specialty Start Date End Date Len Adhikari MD PCP - General Family Practice 11/08/16 05/09/22 [place] [address] [place] [address] PCP - General Family Medicine 05/18/22 Jovany Gonzalez MD [facility] [address] [facility] 605 [place] [address] Orthopedics 02/15/17 Staci Woodward [facility] [address] [place], [place] [address] Nurse Practitioner Nurse Practitioner Psych/Mental Health 05/10/17 [place] [address] [place] [address] Assigned PCP 11/14/16 01/22/[address] [facility] [address] [place] [address] Assistant Administrator Dietitian, Registered 07/25/19 Katiana Read MD [address] [facility] 200 [place], [place] 8[address] Assigned Endocrinology Provider 05/02/20 08/01/21 Jese Doyle MD 909 [place], [place] 483025 Assigned Pulmonology Provider 05/02/20 04/11/21 Roshni Nascimento RN Personal Advocate & Liaison (PAL) Family Medicine 08/18/20 [facility] 1440 [facility] [place] [address] Pharmacist Pharmacist 08/28/20 11/26/20 Kiet Swain MD [address] [place] [address] 087854 Referring Physician Psychiatry 09/19/20 Winsome Pike APRN HYDRAULIC MODELING ENGINEER [address] [place] [address] Nurse Practitioner Psychiatry 09/19/20 Tori Hines, [facility] [address] [place] [address] Urologic Nurse Urologic Nurse - Clinical 09/19/20 Miranda Queen, [facility] [address] [place] [address] Pharmacist Pharmacist 11/12/20 Winsome Pike APRN HYDRAULIC MODELING ENGINEER [address] [place] [address] [phone] Assigned Behavioral Health Provider 01/04/21 07/02/22 Marisel Armando MD [address] [place] [address] 315075 Gastroenterology 02/05/21 Marisel Armando MD [address] [place] [address] 070815 Assigned Gastroenterology Provider 03/08/21 12/24/22 Inderjit Ugalde MD [address] [facility] 300 [place], [place] 001037 Assigned Surgical Provider 02/15/21 08/20/22 Wesley Barrett MD 420 [facility] 96 [place], [place] 6[address] Assigned Neuroscience Provider 05/10/21 Charles Jaramillo PA-C [address] [address] Assigned Musculoskeletal Provider 04/26/21 10/15/22 Miranda Queen [facility] [address] [place] [address] Assigned MTM Pharmacist 12/05/21 03/26/22 [place] [address] [place] [address] Assigned PCP 01/23/22 05/14/22 Miranda Queen [facility] [address] [place] [address] Assigned MTM Pharmacist 04/07/22 05/14/22 [place] [address] [place] [address] Assigned PCP 05/15/22 Kaitana Read MD [address] [address] Assigned Endocrinology Provider 06/19/22 [place] [address] [place] [address] Assigned Behavioral Health Provider 07/03/22 12/31/22 Deena Garza APRN HYDRAULIC MODELING ENGINEER [address] [place] [address] Assigned Pain Medication Provider 07/19/22 10/29/22 Mary Del Cid, RAFAEL [address] [place] [address] Nurse Practitioner Nurse Practitioner 10/18/22 [facility] 3033 [place] [address] Pharmacist Pharmacist 10/19/22 Emerita Potter, [facility] Clinic Dog Catcher Urologic Nurse - Clinical 10/29/22 11/02/22 [place] [address] [address] [place] [address] Assigned Pain Medication Provider 10/30/22 12/03/22 Michelle Guzman, ALDOM, Podiatry/Foot and Ankle Surgery [address] [place] [address] Assigned Musculoskeletal Provider 10/16/22 04/08/23 [place] [address] [place] [address] Assigned Pain Medication Provider 12/04/22 04/01/23 [place] [address] [place] [address] Nurse Practitioner Nurse Practitioner 01/17/23 01/17/23 Aubrey Jones MD [address] [place] [address] Cardiovascular Disease 03/28/23 Blanquita Morales Assistant Administrator Diabetes Education 04/25/23 Aubrey Jones MD [address] [place] [address] Assigned Heart and Vascular Provider 05/07/23 documented as of this encounter
--- OUTSIDE RECORDS SUMMARY | 2023-08-03 12:54 | XMS_ITS | Encounter Summary ---
Author Name Unknown Organization [place] Address [address] [place] [address]. [place] [address] Care Team Providers Care Agricultural Extension Agent Name Role Phone Len Adhikari MD Primary Care Provider [phone] Jovany Gonzalez MD Unavailable [phone] CrissyStaci jeong SUPERVISOR INSPECTION AND TESTING Unavailable [phone] Len Adhikari MD Unavailable Reanna Smith RD Unavailable Katiana Read MD Unavailable [phone] Alexander López MD Unavai lable Jese Doyle MD Unavailable +[phone] Roshni Nascimento RN Unavailable Unavailable Johana Groves [facility] Unavailable [phone] Kiet Swain MD Unavailable [phone] Winsome Pike APRN DIESEL ENGINE FITTER Unavailable +[phone] Tori Hines [facility] Unavailable Miranda Queen [facility] Unavailable Unavailable Winsome Pike APRN DIESEL ENGINE FITTER Unavailable +[phone] Marisel Armando MD Unavailable Marisel Armando MD Unavailable Inderjit Ugalde MD Unavailable [phone] Wesley Barrett MD Unavailable Charles Jaramillo PA-C Unavailable [phone] Miranda Queen [facility] Unavailable Unavailable Leeann Rinaldi MD Unavailable Miranda Queen [facility] Unavailable Unavailable Dyan Fuentes MD Primary Care Provider +[phone] Dyan Fuentes MD Unavailable +[phone] Katiana Read MD Unavailable [phone] Meme Singleton PhD Unavailable +[phone] Deena Garza COMMERCIAL INSULATOR DIESEL ENGINE FITTER Unavailable +[phone] Mary Del Cid NP Unavailable + [phone] Elham Stack [facility] Unavailable Emerita Potter DIRECTOR OF COLLECTIONS Unavailable +[phone] Mary Del Cid NP Unavailable [phone] Michelle Guzman DPM, Podiatry /Foot and Ankle Surgery Unavailable Dyan Fuentes MD Unavailable +[phone] Mary Del Cid NP Unavailable + [phone] Aubrey Jones MD Unavailable +[phone] Blanquita Morales Unavailable Unavailable Aubrey Jones MD Unavailable +[phone] Encounter Details Date Type Department Care Team (Late st Contact Info) Description 11/13/2020 [facility] Treatment Plan [facility] [address] [place] [address] Oswaldo Ch MD Liztic [address] [place] [address] [address] [place], [place] [address] Justo, Tamiko, HEALTH CENTER MANAGER Generalized anxiety disorder Social History Tobacco Use [...] How often do you attend chur or druze services? Never 09/20/2020 Do you belong to [...] Answer Date Recorded PHQ-2 Score 6 11/06/2020 [facility] [place] of Occupat ional Health - Occupational Stress [...] Contact Info) Description 08/18/2023 3:00 PM BUILDING ENGINEER Office Visit [facility] [address] [place] [phone] Katiana Read MD [address] [place] [address] documented as of this encounter Visit Diagnoses [...] documented as of this encounter Care Teams Agricultural Extension Agent Relationship Specialty Start Date End Date Len Adhikari MD PCP - General Family Practice 11/08/16 05/09/22 [place] [address] [place] [address] PCP - General Family Medicine 05/18/22 Jovany Gonzalez MD [facility] 6600 [facility] 605 [place] [address] Orthopedics 02/15/17 Staci Woodward SUPERVISOR INSPECTION AND TESTING [place] [address] [place] [address] Nurse Practitioner Nurse Practitioner Psych/Mental Health 05/10/17 [place] [address] [place] [address] Assigned PCP 11/14/16 01/22/22 Reanna Smith, [facility] [address] [place] [address] Wire Chief Dietitian, Registered 07/25/19 Katiana Read MD [address] [place] [address] Assigned Endocrinology Provider 05/02/20 08/01/21 Alexander López MD [address] [place], [place] [address] Assigned Sleep Provider 05/02/20 11/15/20 Jese Doyle MD 909 [facility] [place], [place] [address] Assigned Pulmonology Provider 05/02/20 04/11/21 Roshni Nascimento, RN Personal Advocate & Liaison (PAL) Family Medicine 08/18/20 Johana Groves, [facility] [address] [place] [id number] Pharmacist Pharmacist 08/28/20 11/26/20 Kiet Swain MD 2450 [facility] [address] [place], [place] [address] Referring Physician Psychiatry 09/19/20 Winsome Pike APRN DIESEL ENGINE FITTER [address] [place] [address] 668684 Nurse Practitioner Psychiatry 09/19/20 Tori Hines, [facility] [address] [place], [place] [id number] Continuous Improvement Lead Continuous Improvement Lead - Clinical 09/19/20 Miranda Queen [facility] [address] [place] [address] Pharmacist Pharmacist 11/12/20 Winsome Pike APRN DIESEL ENGINE FITTER [address] [place] [address] 072524 Assigned Behavioral Health Provider 01/04/21 07/02/22 Marisel Armando MD [address] [place] [address] 242255 Gastroenterology 02/05/21 Marisel Armando MD [address] [place] [address] Assigned Gastroenterology Provider 03/08/21 12/24/22 Inderjit Ugalde MD [address] [facility] 300 [place] [address] Assigned Surgical Provider 02/15/21 08/20/22 Wesley Barrett MD [address] [place] [address] Assigned Neuroscience Provider 05/10/21 Charles Jaramillo PA-C 6545 [facility] 450 [place] [address] Assigned Musculoskeletal Provider 04/26/21 10/15/22 Miranda Queen [facility] [address] [place] [address] Assigned MTM Pharmacist 12/05/21 03/26/22 [place] [address] [place] [address] Assigned PCP 01/23/22 05/14/22 Miranda Queen [facility] [address] [place] [address] Assigned MTM Pharmacist 04/07/22 05/14/22 [place] [address] [place] [address] Assigned PCP 05/15/22 Katiana Read MD [address] [place] [address] 200 [place] [address] Assigned Endocrinology Provider 06/19/22 [place]e [place] PhD [address] [place] 17[address]7 Assigned Behavioral Health Provider 07/03/22 12/31/22 Deena Garza, COMMERCIAL INSULATOR DIESEL ENGINE FITTER [address] [place] [address] Assigned Pain Medication Provider 07/19/22 10/29/22 Mary Del Cid, RAFAEL [address] [place] [address] Nurse Practitioner Nurse Practitioner 10/18/22 Elham Stack, [facility] [address] [place] [address] Pharmacist Pharmacist 10/19/22 Emerita Potter, [facility] Clinic [address] [place] Continuous Improvement Lead - Clinical 10/29/22 11/02/22 [place] [address] [address] [place] [address] Assigned Pain Medication Provider 10/30/22 12/03/22 Michelle Guzman DPM, Podiatry/Foot and Ankle Surgery [address] [place] [address] Assigned Musculoskeletal Provider 10/16/22 04/08/23 [place] [address] [place] [address] Assigned Pain Medication Provider 12/04/22 04/01/23 [place] [address] [place] [address] Nurse Practitioner Nurse Practitioner 01/17/23 01/17/23 Aubrey Jones MD [address] [place] [address] Cardiovascular Disease 03/28/23 Blanquita Morales Wire Chief Diabetes Education 04/25/23 Aubrey Jones MD [address] [place] [address] Assigned Heart and Vascular Provider 05/07/23 documented as of this encounter
--- OUTSIDE RECORDS SUMMARY | 2023-08-03 12:54 | XMS_ITS | Encounter Summary ---
Author Name Unknown Organization [place] Address [address] [place] [address]. [place] [address] Care Team Providers Care Warehouse Puller Name Role Phone Len Adhikari MD Primary Care Provider [phone] Jovany Gonzalez MD Unavailable CrissyStaci jeong CHIEF PILOT Unavailable [phone] Len Adhikari MD Unavailable Reanna Smith [address] Unavailable [phone] Katiana Read MD Unavailable [phone] Alexander López MD Unavai lable Jese Doyle MD Unavailable [phone] Roshni Nascimento RN Unavailable Unavailable Johana Groves [facility] Unavailable Kiet Swain MD Unavailable [phone] Winsome Pike APRN UC ARCHITECT Unavailable +[phone] Tori Hines [facility] Unavailable Miranda Queen [facility] Unavailable Unavailable Winsome Pike APRN UC ARCHITECT Unavailable +[phone] Marisel Armando MD Unavailable Marisel Armando MD Unavailable Inderjit Ugalde MD Unavailable [phone] Wesley Barrett MD Unavailable [phone] Charles Jaramillo PA-C Unavailable [phone] Miranda Queen [facility] Unavailable Unavailable Leeann Rinaldi MD Unavailable Miranda Queen [facility] Unavailable Unavailable Dyan Fuentes MD Primary Care Provider [phone] Dyan Fuentes MD Unavailable [phone] Katiana Read MD Unavailable [phone] Meme Singleton PhD Unavailable [phone] Deena Garza CLINICAL PROVIDER TRAINER UC ARCHITECT Unavailable +[phone] Mary Del Cid NP Unavailable + [phone] Elham Stack [facility] Unavailable [phone] Emerita Potter MANAGER SPECIAL EVENTS Unavailable [phone] Mary Del Cid NP Unavailable [phone] Michelle Guzman DPM, Podiatry /Foot and Ankle Surgery Unavailable Dyan Fuentes MD Unavailable [phone] Mary Del iCd NP Unavailable [phone] Aubrey Jones MD Unavailable [phone] Blanquita Morales Unavailable Unavailable Aubrey Jones MD Unavailable [phone] Encounter Details Date Type Department Care Team (Late st Contact Info) Description 11/12/2020 [facility] Medical Advice [address] [place] [address] Miranda Queen, [facility] [address] [place] [address] Social History Tobacco Use Types Packs/Day Years [...] often do you attend chur ch or tenriism services? Never 09/20/2020 Do you [...] Answer Date Recorded PHQ-2 Score 6 11/06/2020 [facility] [place] of Occupat ional Health - Occupational Stress [...] st Contact Info) Description 08/18/2023 3:00 PM NECKTIES PAINTER Office Visit [facility] [address] [place] [address] Katiana Read MD [address] [place], [place] 40[address] documented as of this encounter Visit Diagnoses [...] as of this encounter Care Teams Warehouse Puller Relationship Specialty Start Date End Date Len Adhikari MD PCP - General Family Practice 11/08/16 05/09/22 [place] [address] [place] [address] PCP - General Family Medicine 05/18/22 Jovany Gonzalez MD [facility] 6600 [facility] [address] [place], [place] [address] Orthopedics 02/15/17 Staci Woodward NP [facility] [address] [place], [place] [address] Nurse Practitioner Nurse Practitioner Psych/Mental Health 05/10/17 [place] [address] [place] [address] Assigned PCP 11/14/16 01/22/22 Reanna Smith, RD [facility] [address] [place] [address] Electrical Transmission Engineer Dietitian, Registered 07/25/19 Katiana Read MD [address] [place], [place] [address] Assigned Endocrinology Provider 05/02/20 08/01/21 Alexander López MD [address] [place], [place] 48[address] Assigned Sleep Provider 05/02/20 11/15/20 Jese Doyle MD 909 [facility] [place] [address] Assigned Pulmonology Provider 05/02/20 04/11/21 Roshni Nascimento RN Personal Advocate & Liaison (PAL) Family Medicine 08/18/20 [facility] [address] [place] [address] Pharmacist Pharmacist 08/28/20 11/26/20 Kiet Swain MD [address] [facility] [facility] [address] [place], [place] [address] Referring Physician Psychiatry 09/19/20 Winsome Pike APRN UC ARCHITECT [address] [place] [address] Nurse Practitioner Psychiatry 09/19/20 Tori Hines [facility] 2450 [place], [place] 214[address] Renewable Energy Consultant Renewable Energy Consultant - Clinical 09/19/20 Miranda Queen [facility] [address] [place] [address] Pharmacist Pharmacist 11/12/20 Winsome Pike APRN UC ARCHITECT [address] [place] [address] 708064 Assigned Behavioral Health Provider 01/04/21 07/02/22 Marisel Armando MD [address] [place] [address] 774505 Gastroenterology 02/05/21 Marisel Armando MD [address] [place] [address] 603355 Assigned Gastroenterology Provider 03/08/21 12/24/22 Inderjit Ugalde MD [address] [facility] 300 [place], [place] [address] Assigned Surgical Provider 02/15/21 08/20/22 Wesley Barrett MD 420 [facility] 96 [place], [place] [address] Assigned Neuroscience Provider 05/10/21 Charles Jaramillo PA-C [address] [address] Assigned Musculoskeletal Provider 04/26/21 10/15/22 [facility] [address] [place] [address] Assigned MTM Pharmacist 12/05/21 03/26/22 [place] [address] [place] [address] Assigned PCP 01/23/22 05/14/22 Miranda Queen [facility] [address] [place] [address] Assigned MTM Pharmacist 04/07/22 05/14/22 [place] [address] [place] [address] Assigned PCP 05/15/22 Katiana Read MD [address] [place] [address] Assigned Endocrinology Provider 06/19/22 [place] [address] [place] [address] Assigned Behavioral Health Provider 07/03/22 12/31/22 Deena Garza APRN UC ARCHITECT [address] [place] [address] Assigned Pain Medication Provider 07/19/22 10/29/22 Mary Del Cid, RAFAEL [address] [place] [address] Nurse Practitioner Nurse Practitioner 10/18/22 Elham Stack, [facility] 3033 [place] [address] Pharmacist Pharmacist 10/19/22 Emerita Potter, [facility] Clinic [employer] Renewable Energy Consultant - Clinical 10/29/22 11/02/22 Mary Del Cid, RAFAEL [address] [place] [address] Assigned Pain Medication Provider 10/30/22 12/03/22 Michelle Guzman, ALDOM, Podiatry/Foot and Ankle Surgery [address] [place] [address] Assigned Musculoskeletal Provider 10/16/22 04/08/23 [place] [address] [place] [address] Assigned Pain Medication Provider 12/04/22 04/01/23 [place] [address] [place] [address] Nurse Practitioner Nurse Practitioner 01/17/23 01/17/23 Aubrey Jones MD [address] [place] [address] Cardiovascular Disease 03/28/23 Blanquita Morales Electrical Transmission Engineer Diabetes Education 04/25/23 Aubrey Jones MD [address] [place] [address] Assigned Heart and Vascular Provider 05/07/23 documented as of this encounter
--- OUTSIDE RECORDS SUMMARY | 2023-08-03 12:54 | XMS_ITS | Encounter Summary ---
Author Name Unknown Organization [place] Address [address] [place] [address] Care Team Providers Care Cotton Machine Operator Name Role Phone Len Adhikari MD Primary Care Provider Jovany Gonzalez MD Unavailable CrissyStaci jeong PROGRAMMER DEVELOPER Unavailable [phone] Len Adhikari MD Unavailable [phone] Unavailable Katiana Read MD Unavailable [phone] Jese Doyle MD Unavailable [phone] Roshni Nascimento RN Unavailable Unavailable Johana Groves [facility] Unavailable [phone] Kiet Swain MD Unavailable [phone] Winsome Pike APRN [employer] MEMBER Unavailable +[phone] Troi Hines [facility] Unavailable Miranda Queen [facility] Unavailable Unavailable Winsome Pike APRN [employer] MEMBER Unavailable +[phone] Marisel Armando MD Unavailable Marisel Armando MD Unavailable Inderjit Ugalde MD Unavailable [phone] Wesley Barrett MD Unavailable [phone] EllaCharles jimenez Michele GEIGER Unavailable [phone] [facility] Unavailable Unavailable Leeann Rinaldi MD Unavailable Miranda Queen [facility] Unavailable Unavailable Dyan Fuentes MD Primary Care Provider [phone] Dyan Fuentes MD Unavailable [phone] Katiana Read MD Unavailable [phone] Meme Singleton PhD Unavailable +[phone] Deena Garza SULFUR CHLORIDE OPERATOR [employer] MEMBER Unavailable [phone] Mary Del Cid PROGRAMMER DEVELOPER Unavailable + [phone] [facility] Unavailable [phone] Emerita Potter [facility] Unavailable [phone] Mary Del Cid NP Unavailable + [phone] [...] Info) Description 11/24/2020 [facility] [address] [place] [address] [place] [address] [place] [address] MyChart Communication Social History Tobacco [...] Answer Date Recorded PHQ-2 Score 5 11/19/2020 [facility] of Occupat ional Health [...] st Contact Info) Description 08/18/2023 3:00 PM PARKING GARAGE MANAGER Office Visit [facility] [address] [facility] [address] [place] [address] Katiana Read MD [address] [place], [place] [address] documented as of this encounter Visit Diagnoses [...] as of this encounter Care Teams Cotton Machine Operator Relationship Specialty Start Date End Date Len Adhikari MD PCP - General Family Practice 11/08/16 05/09/22 [place] [address] [place] [address] PCP - General Family Medicine 05/18/22 Jovany Gonzalez MD [facility] 6600 [facility] 605 [place] [address] Orthopedics 02/15/17 Staci Woodward, PROGRAMMER DEVELOPER [place] [address] [place] [address] Nurse Practitioner Nurse Practitioner Psych/Mental Health 05/10/17 [place] [address] [place] [address] Assigned PCP 11/14/16 01/22/[address] [facility] [address] [place] [address] Pump Installer Dietitian, Registered 07/25/19 Katiana Read MD [address] [place] [address] 200 [place] [address] Assigned Endocrinology Provider 05/02/20 08/01/21 Jese Doyle MD 909 [place] [address] Assigned Pulmonology Provider 05/02/20 04/11/21 Roshni Nascimento, ZITA Personal Advocate & Liaison (PAL) Family Medicine 08/18/20 Johana Groves, [facility] [address] [place] [address] Pharmacist Pharmacist 08/28/20 11/26/20 Kiet Swain MD [facility] [address] [place] [address] Referring Physician Psychiatry 09/19/20 Winsome Pike APRN [employer] MEMBER [address] [place] [address] 680154 Nurse Practitioner Psychiatry 09/19/20 Tori Hines, [facility] [address] [place] [address] 233784 Ophthalmology Surgical Technician Ophthalmology Surgical Technician - Clinical 09/19/[address] [facility] [address] [place] [address] Pharmacist Pharmacist 11/12/20 Winsome Pike APRN [employer] MEMBER [address] [place] [address] Assigned Behavioral Health Provider 01/04/21 07/02/22 Marisel Armando MD [address] [place] [address] Gastroenterology 02/05/21 Marisel Armando MD [address] [place] [address] Assigned Gastroenterology Provider 03/08/21 12/24/22 Inderjit Ugalde MD [address] [address] Assigned Surgical Provider 02/15/21 08/20/22 Wesley Barrett MD [address] [place] [address] Assigned Neuroscience Provider 05/10/21 Charles Jaramillo PA-C 6545 [facility] 450 [place] [address] Assigned Musculoskeletal Provider 04/26/21 10/15/[address] [facility] [address] [place] [address] Assigned MTM Pharmacist 12/05/21 03/26/22 [place] [address] [place] [address] Assigned PCP 01/23/22 05/14/[address] [facility] [address] [place] [address] Assigned MTM Pharmacist 04/07/22 05/14/22 [place] [address] [place] [address] Assigned PCP 05/15/22 Katiana Read MD [address] [place] [address] 200 [place] [address] Assigned Endocrinology Provider 06/19/22 [place] [address] [place] [address] Assigned Behavioral Health Provider 07/03/22 12/31/22 Deena Garza APRN [employer] [address] [place] [address] Assigned Pain Medication Provider 07/19/22 10/29/22 Mary Del Cid, PROGRAMMER DEVELOPER [address] [place] [address] Nurse Practitioner Nurse Practitioner 10/18/22 Elham Stack, [facility] [address] [place] [address] Pharmacist Pharmacist 10/19/22 Emerita Potter, [facility] Clinic Grill Chef Ophthalmology Surgical Technician - Clinical 10/29/22 11/02/22 [place] [address] [address] [place] [address] Assigned Pain Medication Provider 10/30/22 12/03/22 Michelle Guzman, DPM, Podiatry/Foot and Ankle Surgery [address] [place] [address] Assigned Musculoskeletal Provider 10/16/22 04/08/23 [place] [address] [place] [address] Assigned Pain Medication Provider 12/04/22 04/01/23 [place] [address] [address] [place] [address] Nurse Practitioner Nurse Practitioner 01/17/23 01/17/23 Aubrey Jones MD [address] [place] [address] Cardiovascular Disease 03/28/23 Blanquita Morales Pump Installer Diabetes Education 04/25/23 Aubrey Jones MD [address] [place] [address] Assigned Heart and Vascular Provider 05/07/23 documented as of this encounter
--- OUTSIDE RECORDS SUMMARY | 2023-08-03 12:54 | XMS_ITS | Encounter Summary ---
Author Name Unknown Organization [facility] Address [address] [place] [address]. [place] [address] Care Team Providers Care Flotation Operator Name Role Phone Len Adhikari MD Primary Care Provider Jovany Gonzalez MD Unavailable CrissyStaci jeong HAND LEATHER TRIMMER Unavailable [phone] Len Adhikari MD Unavailable Reanna Smith RD Unavailable Katiana Read MD Unavailable [phone] Alexander óLpez MD Unavai lable Jese Doyle MD Unavailable +[phone] Roshni Nascimento RN Unavailable Unavailable Johana Groves [facility] Unavailable [phone] Kiet Swain MD Unavailable [phone] Winsome Pike APRN INFANT AND TODDLER TEACHER Unavailable +[phone] Tori Hines [facility] Unavailable Miranda Queen [facility] Unavailable Unavailable Winsome Pike APRN INFANT AND TODDLER TEACHER Unavailable +[phone] Marisel Armando MD Unavailable Marisel Armando MD Unavailable Inderjit Ugalde MD Unavailable [phone] Wesley Barrett MD Unavailable Charles Jaramillo PA-C Unavailable [phone] Miranda Queen [facility] Unavailable Unavailable Leeann Rinaldi MD Unavailable Miranda Queen [facility] Unavailable Unavailable Dyan Fuentes MD Primary Care Provider [phone] Dyan Fuentes MD Unavailable [phone] Katiana Read MD Unavailable [phone] Meme Singleton PhD Unavailable +[phone] Deena Garza POST HOLE DIGGER INFANT AND TODDLER TEACHER Unavailable +[phone] Mary Del Cid NP Unavailable + [phone] Elham Stack [facility] Unavailable Emerita Potter [facility] Unavailable [phone] Mary Del Cid NP Unavailable [phone] Michelle Guzman DPM, Podiatry /Foot and Ankle Surgery Unavailable Dyan Fuentes MD Unavailable [phone] Mary Del Cid NP Unavailable [phone] Aubrey Jones MD Unavailable [phone] Blanquita Morales Unavailable Unavailable Aubrey Jones MD Unavailable [phone] Encounter Details Date Type Department Care Team (Late st Contact Info) Description 11/04/2020 [facility] [address] [place] [address] [place] [address] [place] [address] Social History Tobacco Use Types [...] How often do you attend chur or jewish services? Never 09/20/2020 Do you belong to [...] Answer Date Recorded PHQ-2 Score 6 11/06/2020 [facility] [place] of Occupat ional Health - Occupational Stress [...] Contact Info) Description 08/18/2023 3:00 PM SENIOR EMBEDDED SOFTWARE ENGINEER Office Visit [facility] [address] [place] [address] Katiana Read MD [address] [place], [place] [address] documented as of this encounter Visit Diagnoses [...] documented as of this encounter Care Teams Flotation Operator Relationship Specialty Start Date End Date Len Adhikari MD PCP - General Family Practice 11/08/16 05/09/22 [place] [address] [place] [address] PCP - General Family Medicine 05/18/22 Jovany Gonzalez MD [facility] 66[address] [facility] 605 [place], [place] [address] Orthopedics 02/15/17 Staci Woodward NP [place] [address] [place], [place] [id number] Nurse Practitioner Nurse Practitioner Psych/Mental Health 05/10/17 [place] [address] [place] [address] Assigned PCP 11/14/16 01/22/22 Reanna mSith, [facility] [address] [place] [address] Suspension Cord Tier Dietitian, Registered 07/25/19 Katiana Read MD [address] [place] [address] Assigned Endocrinology Provider 05/02/20 08/01/21 Alexander López MD [address] [place], [place] [address] Assigned Sleep Provider 05/02/20 11/15/20 Jese Doyle MD [address] [facility] [place], [place] [address] Assigned Pulmonology Provider 05/02/20 04/11/21 Roshni Nascimento, RN Personal Advocate & Liaison (PAL) Family Medicine 08/18/20 Johana Groves, [facility] [address] [place] [id number] Pharmacist Pharmacist 08/28/20 11/26/20 Kiet Swain MD [address] [facility] [address] [place], [place] [address] Referring Physician Psychiatry 3/12/21 Winsome Pike APRN INFANT AND TODDLER TEACHER [address] [address] Nurse Practitioner Psychiatry 09/19/20 Tori Hines, [facility] [address]50 [place], [place] [id number] Safety Fire Boss Safety Fire Boss - Clinical 09/19/20 Miranda Queen, [facility] [address] [place] [address] Pharmacist Pharmacist 11/12/20 Winsome Pike APRN INFANT AND TODDLER TEACHER [facility] [address] 918724 Assigned Behavioral Health Provider 01/04/21 07/02/22 Marisel Armando MD [address] [place] [address] 637495 Gastroenterology 02/05/21 Marisel Armando MD [address] [place] [address] 180245 Assigned Gastroenterology Provider 03/08/21 12/24/22 Inderjit Ugalde MD [address] [facility] 300 [place], [place] [address] Assigned Surgical Provider 02/15/21 08/20/22 Wesley Barrett MD [address] [place] [address] 021505 Assigned Neuroscience Provider 05/10/21 Charles Jaramillo PA-C [address] [address] Assigned Musculoskeletal Provider 04/26/21 10/15/22 Miranda Queen [facility] [address] [place] [address] Assigned MTM Pharmacist 12/05/21 03/26/22 [place] [address] [place] [address] Assigned PCP 01/23/22 05/14/22 Miranda Queen [facility] [address] [place] [address] Assigned MTM Pharmacist 04/07/22 05/14/22 [place] [address] [place] [address] Assigned PCP 05/15/22 Katiana Raed MD [address] [place] [address] 200 [place] [address] Assigned Endocrinology Provider 06/19/22 [place] PhD [address] [place] [address] Assigned Behavioral Health Provider 07/03/22 12/31/22 Deena Garza, POST HOLE DIGGER INFANT AND TODDLER TEACHER [address] [place] [address] Assigned Pain Medication Provider 07/19/22 10/29/22 Mary Del Cid, HAND LEATHER TRIMMER [address] [place] [address] Nurse Practitioner Nurse Practitioner 10/18/22 Elham Stack, [facility] [address] [place] [address] Pharmacist Pharmacist 10/19/22 Emerita Potter, [facility] Gray Tender Safety Fire Boss - Clinical 10/29/22 11/02/22 [place] [address] [place] [address] Assigned Pain Medication Provider 10/30/22 12/03/22 Michelle Guzman, DPM, Podiatry/Foot and Ankle Surgery [address] [place] [place] [address] Assigned Musculoskeletal Provider 10/16/22 04/08/23 [place] [address] [place] [address] Assigned Pain Medication Provider 12/04/22 04/01/23 [place] [address] [place] [address] Nurse Practitioner Nurse Practitioner 01/17/23 01/17/23 Aubrey Jones MD [address] [place] [address] Cardiovascular Disease 03/28/23 Blanquita Morales Suspension Cord Tier Diabetes Education 04/25/23 Aubrey Jones MD [address] [place] [address] Assigned Heart and Vascular Provider 05/07/23 documented as of this encounter
--- OUTSIDE RECORDS SUMMARY | 2023-08-03 12:54 | XMS_ITS | Encounter Summary ---
Author Name Unknown Organization [facility] Address [address] [place] [address]. [place] [address] Care Team Providers Care Sales And Service Technician Name Role Phone Len Adhikari MD Primary Care Provider Jovany Gonzalez MD Unavailable CrissyStaci jeong VASCULAR ULTRASOUND TECHNOLOGIST Unavailable [phone] Len Adhikari MD Unavailable [phone] Unavailable Katiana Read MD Unavailable [phone] Alexander López MD Unavai lable Jese Doyle MD Unavailable [phone] Roshni Nascimento RN Unavailable Unavailable Johana Groves [facility] Unavailable Kiet Swain MD Unavailable [phone] Winsome Pike APRN TELESALES MANAGER Unavailable +[phone] Tori Hines [facility] Unavailable Miranda Queen [facility] Unavailable Unavailable Winsome Pike APRN TELESALES MANAGER Unavailable [phone] Marisel Armando MD Unavailable Marisel Armando MD Unavailable Inderjit Ugalde MD Unavailable [phone] Wesley Barrett MD Unavailable [phone] Charles Jaramillo PA-C Unavailable + [phone] Miranda Queen [facility] Unavailable Unavailable Leeann Rinaldi MD Unavailable Miranda Queen [facility] Unavailable Unavailable Dyan Fuentes MD Primary Care Provider [phone] Dyan Fuentes MD Unavailable [phone] Katiana Read MD Unavailable [phone] Meme Singleton PhD Unavailable [phone] Deena Garza SKID WORKER TELESALES MANAGER Unavailable [phone] Mary Del Cid NP Unavailable + [phone] Elham Stack [facility] Unavailable [phone] Emerita Potter [facility] Unavailable [phone] Mary Del Cid NP Unavailable [phone] Michelle Guzman DPM, Podiatry /Foot and Ankle Surgery Unavailable Dyan Fuentes MD Unavailable [phone] Mary DelC id NP Unavailable [phone] Aubrey Jones MD Unavailable [phone] Blanquita Morales Unavailable Unavailable Aubrey Jones MD Unavailable [phone] Reason for Visit * Reason Onset Date Comments CD Outpatient 11/03/2020 Encounter Details Date Type Department Care Team ([facility] st Contact Info) Description 11/03/2020 Telephone [facility] Intake [address] [place] [address] Generic, Behavioral Intake, CD Outpatient [...] attend chur ch or roman catholic services? Never 09/20/2020 Do you belong to [...] Answer Date Recorded PHQ-2 Score 6 11/06/2020 [facility] of Occupat ional Health [...] to 55+ by [address] staff @ [phone] ADULT ANGELICA Negron sent. documented in this encounter Plan of Treatment Upcoming Encounters Date Type Department Care Team (Late st Contact Info) Description 08/18/2023 3:00 PM ASSEMBLY LINE ROBOT OPERATOR Office Visit [facility] [address] [place] [address] Katiana Read MD [address] [place] [address] documented as of this encounter [...] of this encounter Care Teams Sales And Service Technician Relationship Specialty Start Date End Date Len Adhikari MD PCP - General Family Practice 11/08/16 05/09/22 [place] [address] [place] [address] PCP - General Family Medicine 05/18/22 Jovany Gonzalez MD [facility] 6600 [facility] 605 [place] [address] Orthopedics 02/15/17 Staci Woodward, [facility] [place] [address] [place] [address] Nurse Practitioner Nurse Practitioner Psych/Mental Health 05/10/17 [place] [address] [facility] [place] [address] Assigned PCP 11/14/16 01/22/[address] [place] [address] [place] [address] Range Feeder Dietitian, Registered 07/25/19 Katiana Read MD [address] [place] [address] 200 [place] [address] Assigned Endocrinology Provider 05/02/20 08/01/21 Alexander López MD [address] [facility] [address] [place], [place] [address] Assigned Sleep Provider 05/02/20 11/15/20 Jese Doyle MD 909 [place] [address] Assigned Pulmonology Provider 05/02/20 04/11/21 Roshni Nascimento, RN Personal Advocate & Liaison (PAL) Family Medicine 08/18/20 Johana Groves, [facility] [address] [facility] [place] [address] Pharmacist Pharmacist 08/28/20 11/26/20 Kiet Swain MD [address] [place] [address] 497494 Referring Physician Psychiatry 09/19/20 Winsome Pike APRN TELESALES MANAGER [address] [place] [address] Nurse Practitioner Psychiatry 09/19/20 Tori Hines, [facility] [place], [place] [id number] Clutch Mechanic Clutch Mechanic - Clinical 09/19/20 Miranda Queen, [facility] [address] [place] [address] Pharmacist Pharmacist 11/12/20 Winsome Pike APRN TELESALES MANAGER [address] [place] [address] [phone] Assigned Behavioral Health Provider 01/04/21 07/02/22 Marisel Armando MD [address] [place] [address] Gastroenterology 02/05/21 Marisel Armando MD [address] [place] [address] Assigned Gastroenterology Provider 03/08/21 12/24/22 Inderjit Ugalde MD [address] [facility] 300 [place] [address] Assigned Surgical Provider 02/15/21 08/20/22 Wesley Barrett MD [address] [place] [address] 96 [place] [address] Assigned Neuroscience Provider 05/10/21 Charles Jaramillo PA-C [address] [address] Assigned Musculoskeletal Provider 04/26/21 10/15/22 Miranda Queen [facility] [address] [place] [address] Assigned MTM Pharmacist 12/05/21 03/26/22 [place] [address] [place] [address] Assigned PCP 01/23/22 05/14/22 Miranda Queen [facility] [address] [place] [address] Assigned MTM Pharmacist 04/07/22 05/14/22 [place] [address] [place] [address] Assigned PCP 05/15/22 Katiana Read MD [address] [facility] 200 [place] [address] Assigned Endocrinology Provider 06/19/22 [place] [address] [place] [address] Assigned Behavioral Health Provider 07/03/22 12/31/22 Deena Garza, SKID WORKER TELESALES MANAGER [address] [place] [address] Assigned Pain Medication Provider 07/19/22 10/29/22 Mary Del Cid, [place] [address] [place] [address] Nurse Practitioner Nurse Practitioner 10/18/22 Elham Stack, [facility] [address] [place], [place] 4517[address] Pharmacist Pharmacist 10/19/22 Emerita Potter, [facility] Clinic Neon Tube Bender Clutch Mechanic - Clinical 10/29/22 11/02/22 Mary Del Cid, [place] [address] [place] [place] [address] Assigned Pain Medication Provider 10/30/22 12/03/22 Michelle Guzman, DPM, Podiatry/Foot and Ankle Surgery [address] [place] [address] Assigned Musculoskeletal Provider 10/16/22 04/08/23 [place] [address] [place] [address] Assigned Pain Medication Provider 12/04/22 04/01/23 [place] [address] [place] [address] Nurse Practitioner Nurse Practitioner 01/17/23 01/17/23 Aubrey Jones MD [address] [place] [address] Cardiovascular Disease 03/28/23 Blanquita Morales Range Feeder Diabetes Education 04/25/23 Aubrey Jones MD [address] [place] [address] Assigned Heart and Vascular Provider 05/07/23 documented as of this encounter
--- OUTSIDE RECORDS SUMMARY | 2023-08-03 12:54 | XMS_ITS | Encounter Summary ---
Author Name Unknown Organization [facility] Address [address] [place] [address]. [place] [address] Care Team Providers Care Refiner Operator Name Role Phone Len Adhikari MD Primary Care Provider Jovany Gonzalez MD Unavailable CrissyStaci jeong COATINGS INSPECTOR Unavailable [phone] Len Adhikari MD Unavailable [phone] Unavailable Katiana Read MD Unavailable [phone] Alexander López MD Unavai lable Jese Doyle MD Unavailable [phone] Roshni Nascimento RN Unavailable Unavailable Johana Groves [facility] Unavailable Kiet Swain MD Unavailable [phone] Winsome Pike APRN DOUGH CUTTING MACHINE OPERATOR Unavailable +[phone] Tori Hines [facility] Unavailable Miranda Queen [facility] Unavailable Unavailable Winsome Pike APRN DOUGH CUTTING MACHINE OPERATOR Unavailable [phone] Marisel Armando MD Unavailable Marisel Armando MD Unavailable Inderjit Ugalde MD Unavailable [phone] Wesley Barrett MD Unavailable [phone] Charles Jaramillo PA-C Unavailable [phone] Miranda Queen [facility] Unavailable Unavailable Leeann Rinaldi MD Unavailable Miranda Queen [facility] Unavailable Unavailable Dyan Fuentes MD Primary Care Provider [phone] Dyan Fuentes MD Unavailable [phone] Katiana Read MD Unavailable [phone] Meme Singleton PhD Unavailable +[phone] Deena Garza COAL HANDLER DOUGH CUTTING MACHINE OPERATOR Unavailable [phone] Mary Del Cid NP Unavailable + [phone] Elham Stack [facility] Unavailable Emerita Potter [facility] Unavailable [phone] Mary Del Cid NP Unavailable [phone] Michelle Guzman DPM, Podiatry /Foot and Ankle Surgery Unavailable Dyan Fuentes MD Unavailable [phone] Mary Del Cid NP Unavailable [phone] Aubrey Jones MD Unavailable [phone] Blanquita Morales Unavailable Unavailable Aubrey Jones MD Unavailable [phone] Encounter Details Date Type Department Care Team (Late st Contact Info) Description 11/04/2020 [facility] [address] [place] [address] [place] [address] [place] [address] Social History Tobacco Use Types [...] How often do you attend chur or mu-ism services? Never 09/20/2020 Do you [...] Answer Date Recorded PHQ-2 Score 6 11/06/2020 [facility] [place] of Occupat ional Health - Occupational Stress [...] Contact Info) Description 08/18/2023 3:00 PM NEWS VIDEOGRAPHER Office Visit [facility] [address] [place] [address] Katiana Read MD [address] [place], [place] [address] documented as of this encounter Visit Diagnoses [...] documented as of this encounter Care Teams Refiner Operator Relationship Specialty Start Date End Date Len Adhikari MD PCP - General Family Practice 11/08/16 05/09/22 [place] [address] [place] [address] PCP - General Family Medicine 05/18/22 Jovany Gonzalez MD [facility] [address] [facility] 605 [place], [place] [address] Orthopedics 02/15/17 Staci Woodward NP [place] [address] [place], [place] [address] Nurse Practitioner Nurse Practitioner Psych/Mental Health 05/10/17 [place] [address] [place] [address] Assigned PCP 11/14/16 01/22/22 Reanna Smith, [facility] [address] [place] [address] Boiler Plant Worker Dietitian, Registered 07/25/19 Katiana Read MD [address] [place] [address] Assigned Endocrinology Provider 05/02/20 08/01/21 Alexander López MD [address] [place], [place] [address] Assigned Sleep Provider 05/02/20 11/15/20 Jese Doyle MD [address] [facility] [place] [place] [address] Assigned Pulmonology Provider 05/02/20 04/11/21 Roshni Nascimento, RN Personal Advocate & Liaison (PAL) Family Medicine 08/18/20 Johana Groves, [facility] [address] [place] [phone] Pharmacist Pharmacist 08/28/20 11/26/20 Kiet Swain MD [address] [facility] [address] [place], [place] [address] Referring Physician Psychiatry 3/12/21 Winsome Pike APRN DOUGH CUTTING MACHINE OPERATOR [address] 158[address] Nurse Practitioner Psychiatry 09/19/20 Tori Hines, [facility] 2450 [place], [place] [address] Services Mgr Services Mgr - Clinical 09/19/20 Miranda Queen, [facility] [address] [place] [address] Pharmacist Pharmacist 11/12/20 Winsome Pike APRN DOUGH CUTTING MACHINE OPERATOR [facility] [address] 157224 Assigned Behavioral Health Provider 01/04/21 07/02/22 Marisel Armando MD [address] [place] [address] 373385 Gastroenterology 02/05/21 Marisel Armando MD [address] [place] [address] 446435 Assigned Gastroenterology Provider 03/08/21 12/24/22 Inderjit Ugalde MD [address] [facility] 300 [place], [place] 85[address] Assigned Surgical Provider 02/15/21 08/20/22 Wesley Barrett MD [address] [place] [address] 300605 Assigned Neuroscience Provider 05/10/21 Charles Jaramillo PA-C [address] [address] Assigned Musculoskeletal Provider 04/26/21 10/15/22 Miranda Queen [facility] [address] [place] [address] Assigned MTM Pharmacist 12/05/21 03/26/22 [place] [address] [place] [address] Assigned PCP 01/23/22 05/14/22 Miranda Queen [facility] [address] [place] [address] Assigned MTM Pharmacist 04/07/22 05/14/22 [place] [address] [place] [address] Assigned PCP 05/15/22 Katiana Read MD [address] [place] [address] 200 [place] [address] Assigned Endocrinology Provider 06/19/22 [place] PhD [address] [place] [address] Assigned Behavioral Health Provider 07/03/22 12/31/22 Deena Garza, COAL HANDLER DOUGH CUTTING MACHINE OPERATOR [address] [place] [address] Assigned Pain Medication Provider 07/19/22 10/29/22 Mary Del Cid, COATINGS INSPECTOR [address] [place] [address] Nurse Practitioner Nurse Practitioner 10/18/22 Elham Stack, [facility] [address] [place] [address] Pharmacist Pharmacist 10/19/22 Emerita Potter, [facility] Clinic Forming Machine Upkeep Mechanic Helper Services Mgr - Clinical 10/29/22 11/02/22 [place] [address] [place] [address] Assigned Pain Medication Provider 10/30/22 12/03/22 Michelle Guzman, DPM, Podiatry/Foot and Ankle Surgery [address] [place] [address] Assigned Musculoskeletal Provider 10/16/22 04/08/23 [place] [address] [place] [address] Assigned Pain Medication Provider 12/04/22 04/01/23 [place] [address] [place] [address] Nurse Practitioner Nurse Practitioner 01/17/23 01/17/23 Aubrey Jones MD [address] [place] [address] Cardiovascular Disease 03/28/23 Blanquita Morales Boiler Plant Worker Diabetes Education 04/25/23 Aubrey Jones MD [address] [place] [address] Assigned Heart and Vascular Provider 05/07/23 documented as of this encounter
--- OUTSIDE RECORDS SUMMARY | 2023-08-03 12:55 | XMS_ITS | Encounter Summary ---
Author Name Unknown Organization [employer] Address [address] [place] [address]. [place] [address] Care Team Providers Care Blanket Inspector Name Role Phone Len Adhikari MD Primary Care Provider Jovany Gonzalez MD Unavailable CrissyStaci jeong GEAR TESTER Unavailable [phone] Len Adhikari MD Unavailable Reanna Smith RD Unavailable Jamshid Granados MD Unavailable Katiana Read MD Unavailable [phone] Jovita Daly MD Unavailable [phone] Alexander López MD Unamarcelina lable Jese Doyle MD Unavailable +[phone] Roshni Nascimento RN Unavailable Unavailable Johana Groves [facility] Unavailable Kiet Swain MD Unavailable [phone] Winsome Pike APRN TRAFFIC ANALYST Unavailable +[phone] Tori Hines [facility] Unavailable Miranda Queen [facility] Unavailable Unavailable Winsome Pike APRN TRAFFIC ANALYST Unavailable Marisel Armando MD Unavailable Marisel Armando MD Unavailable Inderjit Ugalde MD Unavailable [phone] Wesley Barrett MD Unavailable +[phone] EllaCharles jimenez Michele GEIEGR Unavailable +[phone] Miranda Queen [facility] Unavailable Unavailable Leeann Rinaldi MD Unavailable Miranda Queen [facility] Unavailable Unavailable Dyan Fuentes MD Primary Care Provider [phone] Dyan Fuentes MD Unavailable [phone] Katiana Read MD Unavailable [phone] Meme Singleton PhD Unavailable [phone] Deena Garza APRN TRAFFIC ANALYST Unavailable +[phone] Mary Del Cid NP Unavailable + [phone] Elham Stack [facility] Unavailable +[phone] Emerita Potter [facility] Unavailable [phone] Mary Del Cid NP Unavailable + [phone] Michelle Guzman DPM, Podiatry /Foot and Ankle Surgery Unavailable Dyan Fuentes MD Unavailable [phone] Mary Del Cid NP Unavailable + [phone] Aubrey Jones MD Unavailable [phone] Blanquita Morales Unavailable Unavailable Aubrey Jones MD Unavailable +[phone] Encounter Details Date Type Department Care Team (Late st Contact Info) Description 07/25/2020 [facility] [id number] [place] [phone] [place] [address] [place] [address] Social History Tobacco Use Types Packs/Day Years [...] COVID-19? No / Unsure 07/26/2020 3:47 PM ADMINISTRATIVE OFFICE MANAGER documented as of this encounter Plan of Treatment Upcoming Encounters Date Type Department Care Team (Late st Contact Info) Description 08/18/2023 3:00 PM ADMINISTRATIVE OFFICE MANAGER Office Visit [facility] [address] [facility] [address] [place] [address] Katiana Read MD [address] [place] [address] [place] [address] [place] [address] documented as of this encounter Visit Diagnoses Not on filedocumented in this encounter Additional Health Concerns Infection Onset Date Last Indicated Resolved Time Rule Out COVID-19 08/19/2020 08/19/2020 08/19/2020 4:40 PM ADMINISTRATIVE OFFICE MANAGER Rule Out C-difficile 02/27/2021 02/27/2021 021 [...] Inspector Relationship Specialty Start Date End Date Len Adhikari MD PCP - General Family Practice 11/08/16 05/09/22 [place] [address] [place] [address] PCP - General Family Medicine 05/18/22 Jovany Gonzalez MD [facility] [address] [facility] [address] [place] [address] Orthopedics 02/15/17 Staci Woodward, GEAR TESTER [place] [address] [place] [address] Nurse Practitioner Nurse Practitioner Psych/Mental Health 05/10/17 [place] [address] [facility] [place] [address] Assigned PCP 11/14/16 01/22/[address] [facility] [address] [place] [address] Rip And Groove Machine Operator Dietitian, Registered 07/25/19 [place] [address] [facility] [address] [place], [place] [address] Assigned Musculoskeletal Provider 05/02/20 09/13/20 Katiana Read MD [address] [place] [address] [place], [place] [address] Assigned Endocrinology Provider 05/02/20 08/01/21 Jovita Daly MD [address] [place], [place] [address] Assigned Surgical Provider 05/02/20 10/04/20 Alexander López MD 606 [address] 106 [place] [address] Assigned Sleep Provider 05/02/20 11/15/20 Jese Doyle MD 909 [place] [address] Assigned Pulmonology Provider 05/02/20 04/11/21 Roshni Nascimento RN Personal Advocate & Liaison (PAL) Family Medicine 08/18/20 Johana Groves [facility] [address] [place], [place] [id number] Pharmacist Pharmacist 08/28/20 11/26/20 Kiet Swain MD 2450 [facility] NG[address] [place], [place] [id number] Referring Physician Psychiatry 09/19/20 Winsome Pike APRN TRAFFIC ANALYST [address] [address] Nurse Practitioner Psychiatry 09/19/20 Tori Hines [facility] 2450 [place], [place] [address] Debone Processing Supervisor Debone Processing Supervisor - Clinical 09/19/20 Miranda Queen [facility] [address] [place] [address] Pharmacist Pharmacist 11/12/20 Winsome Pike, VIDHI TRAFFIC ANALYST [address] [id number] Assigned Behavioral Health Provider 01/04/21 07/02/22 aMrisel Armando MD [address] [place] [address] 748485 Gastroenterology 02/05/21 Marisel Armando MD 909 [place], [place] [address] Assigned Gastroenterology Provider 03/08/21 12/24/22 Inderjit Ugalde MD [address] [facility] 300 [place], [place] [address] Assigned Surgical Provider 02/15/21 08/20/22 Wesley Barrett MD 420 [facility] 96 [place], [place] [address] Assigned Neuroscience Provider 05/10/21 Charles Jaramillo PA-C [address] [address] Assigned Musculoskeletal Provider 04/26/21 10/15/22 [facility] [address] [place] [address] Assigned MTM Pharmacist 12/05/21 03/26/22 [place] [address] [place] [address] Assigned PCP 01/23/22 05/14/22 [facility] [address] [place] [address] Assigned MTM Pharmacist 04/07/22 05/14/22 [place] [address] [place] [address] Assigned PCP 05/15/22 Katiana Read MD [address] [place] [address] Assigned Endocrinology Provider 06/19/22 [place] [address] [place] [address] Assigned Behavioral Health Provider 07/03/22 12/31/22 Deena Garza, TELE GROUT SEWER LINE REPAIRER TRAFFIC ANALYST [address] [place] 279[address]27 Assigned Pain Medication Provider 07/19/22 10/29/22 Mary Del Cid, RAFAEL [address] [place] [address]47 Nurse Practitioner Nurse Practitioner 10/18/22 Elham Stack, [facility] 30[address] [place] [address] Pharmacist Pharmacist 10/19/22 Abbey Emerita M, [facility] Clinic Privacy Manager Debone Processing Supervisor - Clinical 10/29/22 11/02/22 [place] [address] [address] [place] [place] [address] Assigned Pain Medication Provider 10/30/22 12/03/22 Michelle Guzman, DPM, Podiatry/Foot and Ankle Surgery [address] [place] [address] Assigned Musculoskeletal Provider 10/16/22 04/08/23 [place] [address] [address] [address] Assigned Pain Medication Provider 12/04/22 04/01/23 [place] [address] [place] [address] Nurse Practitioner Nurse Practitioner 01/17/23 01/17/23 Aubrey Jones MD [address] [place] [address] Cardiovascular Disease 03/28/23 Blanquita Morales Rip And Groove Machine Operator Diabetes Education 04/25/23 Aubrey Jones MD [address] [place] [address] Assigned Heart and Vascular Provider 05/07/23 documented as of this encounter
--- OUTSIDE RECORDS SUMMARY | 2023-08-03 12:55 | XMS_ITS | Encounter Summary ---
Author Name Unknown Organization [employer] Address [address] [place] [address]. [place] [address] Care Team Providers Care Director Of Home Economics Name Role Phone Len Adhikari MD Primary Care Provider Jovany Gonzalez MD Unavailable CrissyStaci jeong DYE WEIGHER Unavailable [phone] Len Adhikari MD Unavailable Reanna Smith RD Unavailable Katiana Read MD Unavailable [phone] Jovita Daly MD Unavailable Alexander López MD Unamarcelina lable Jese Doyle MD Unavailable [phone] Roshni Nascimento RN Unavailable Unavailable Johana Groves [facility] Unavailable [phone] Kiet Swain MD Unavailable Winsome Pike APRN BOBBIN WASHER Unavailable [phone] Tori Hines [facility] Unavailable Miranda Queen [facility] Unavailable Unavailable Winsome Pike APRN BOBBIN WASHER Unavailable [phone] Marisel Armando MD Unavailable Marisel Armando MD Unavailable Inderjit Ugalde MD Unavailable [phone] Wesley Barrett MD Unavailable [phone] EllaCharles epperson Michele GEIGER Unavailable + [phone] Miranda Queen [facility] Unavailable Unavailable Leeann Rinaldi MD Unavailable Miranda Queen [facility] Unavailable Unavailable Dyan Fuentes MD Primary Care Provider Dyan Fuentes MD Unavailable [phone] Katiana Read MD Unavailable [phone] Meme Singleton PhD Unavailable [phone] Deena Garza APRN BOBBIN WASHER Unavailable [phone] Mary Del Cid NP Unavailable [phone] Elham Stack [facility] Unavailable [phone] Emerita Potter [facility] Unavailable Mary Del Cid NP Unavailable [...] (Late st Contact Info) Description 09/14/2020 Refill [facility] [address] [facility] [address] [place] [address] Katiana Read MD [address] [place] [address] 200 [place] [address] Medication Refill Social History Tobacco Use Types [...] COVID-19? Unable to assess 08/31/2020 12:49 AM FISHER WEIR documented as of this encounter Miscellaneous Notes * Telephone Encounter - Katiana Read MD - 09/17/2020 12:40 PM FISHER WEIR Rx sent. TSH Date Value Ref Range Status 08/19/2020 0.70 0.40 - 4.00 mU/L Final ER WEIR * Telephone Encounter - Marisel Thompson RN - 09/17/2020 11:39 AM CST Pending Prescriptions: Disp Refills levothyroxine (SYNTHROID/LEVOTHROID) 175 M*180 ta* Sig: TAKE 2 TABLETS BY MOUTH 6 DAYS PER WEEK AND 1.5 TABS ONE DAY PER WEEK Routing refill request to provider for review/approval because: Last ordered in the hospital ER WEIR documented in this encounter Plan of Treatment Upcoming Encounters Date Type Department Care Team (Late st Contact Info) Description 08/18/2023 3:00 PM FISHER WEIR Office Visit [facility] [address] [facility] [address] [place] [phone] Katiana Read MD [address] [place] [address] [place] [address] documented as of this encounter Visit Diagnoses [...] of this encounter Care Teams Director Of Home Economics Relationship Specialty Start Date End Date Len Adhikari MD PCP - General Family Practice 11/08/16 05/09/22 [place] [address] [place] [address] PCP - General Family Medicine 05/18/22 Jovany Gonzalez MD [facility] 6600 [facility] 605 [place] [address] Orthopedics 02/15/17 Staci Woodward DYE WEIGHER [facility] [address] [place] [address] Nurse Practitioner Nurse Practitioner Psych/Mental Health 05/10/17 [place] [address] [place] [address] Assigned PCP 11/14/16 01/22/22 Reanna Smith, RD [facility] [address] [place] [address] Glove Turner And Former Dietitian, Registered 07/25/19 Katiana Read MD [address] [place] [address] 200 [place], [place] [address] Assigned Endocrinology Provider 05/02/20 08/01/21 Jovita Daly MD [address] [place] [address] Assigned Surgical Provider 05/02/20 10/04/20 Alexander López MD [address] [facility] 106 [place], [place] [address]054 Assigned Sleep Provider 05/02/20 11/15/20 Jese Doyle MD 909 [place], [place] [address] Assigned Pulmonology Provider 05/02/20 04/11/21 Roshni Nascimento, ZITA Personal Advocate & Liaison (PAL) Family Medicine 08/18/20 Johana Groves, [facility] [address] [place] [address] Pharmacist Pharmacist 08/28/20 11/26/20 Kiet Swain MD [address] [place] [address] [place] [address] Referring Physician Psychiatry 09/19/20 Winsome Pike APRN BOBBIN WASHER [address] [place] [address] Nurse Practitioner Psychiatry 09/19/20 Tori Hines, [facility] [address] [place] [address] Radiological Technologist Radiological Technologist - Clinical 09/19/20 Miranda Queen [facility] [address] [place] [address] Pharmacist Pharmacist 11/12/20 Winsome Pike APRN BOBBIN WASHER [address] [place] [address] Assigned Behavioral Health Provider 01/04/21 07/02/22 Marisel Armando MD [address] [place] [address] Gastroenterology 02/05/21 Marisel Armando MD [address] [place] [address] Assigned Gastroenterology Provider 03/08/21 12/24/22 Inderjit Ugalde MD [address] [facility] 300 [place] [address] Assigned Surgical Provider 02/15/21 08/20/22 Wesley Barrett MD 420 [facility] 96 [place] [address] Assigned Neuroscience Provider 05/10/21 Charles Jaramillo PA-C [address] [facility] 450 [place] [address] Assigned Musculoskeletal Provider 04/26/21 10/15/22 [facility] [address] [place] [address] Assigned MTM Pharmacist 12/05/21 03/26/22 [place] [address] [place] [address] Assigned PCP 01/23/22 05/14/22 [facility] [address] [place] [address] Assigned MTM Pharmacist 04/07/22 05/14/22 [place] [address] [place] [address] Assigned PCP 05/15/22 Katiana Read MD [address] [place] [address] 200 [place] [address] Assigned Endocrinology Provider 06/19/22 [place] [address] [place] [address]37 Assigned Behavioral Health Provider 07/03/22 12/31/22 Deena Garza, BROOM WORKER BOBBIN WASHER [address] [place] 221257 Assigned Pain Medication Provider 07/19/22 10/29/22 [place] [address] [place] [address] Nurse Practitioner Nurse Practitioner 10/18/22 Elham Stack, [facility] [address] [place], [place] [address] Pharmacist Pharmacist 10/19/22 Emerita Potter, [facility] Clinic Fashion Model Radiological Technologist - Clinical 10/29/22 11/02/22 [place] [address] [place] [address] Assigned Pain Medication Provider 10/30/22 12/03/22 Michelle Guzman, DPM, Podiatry/Foot and Ankle Surgery [address] [place] [address] Assigned Musculoskeletal Provider 10/16/22 04/08/23 [place] [address] [place] [address] Assigned Pain Medication Provider 12/04/22 04/01/23 [place] [address] [place] [address] Nurse Practitioner Nurse Practitioner 01/17/23 01/17/23 Aubrey Jones MD [address] [place] [address] Cardiovascular Disease 03/28/23 Blanquita Morales Glove Turner And Former Diabetes Education 04/25/23 Aubrey Jones MD [address] [place] [address] Assigned Heart and Vascular Provider 05/07/23 documented as of this encounter
--- OUTSIDE RECORDS SUMMARY | 2023-08-03 12:55 | XMS_ITS | Encounter Summary ---
Author Name Unknown Organization [employer] Address [address] [place] [address]. [place] [address] Care Team Providers Care Medical Assistant Per Diem Name Role Phone Len Adhikari MD Primary Care Provider Jovany Gonzalez MD Unavailable CrissySatci jeong DROP WIRE HANGER Unavailable Len Adhikari MD Unavailable Reanna Smith RD Unavailable [phone] Katiana Read MD Unavailable [phone] Jovita Daly MD Unavailable Alexander López MD Unamarcelina lable Jese Doyle MD Unavailable [phone] Roshni Nascimento RN Unavailable Unavailable Johana Groves [facility] Unavailable [phone] Kiet Swain MD Unavailable [phone] Winsome Pike APRN LITHOGRAPHIC PRESS FEEDER Unavailable [phone] Tori Hines [facility] Unavailable Miranda Queen [facility] Unavailable Unavailable Winsome Pike APRN LITHOGRAPHIC PRESS FEEDER Unavailable [phone] Marisel Armando MD Unavailable Marisel Armando MD Unavailable Inderjit Ugalde MD Unavailable [phone] Wesley Barrett MD Unavailable +[phone] Ella Charlestaylor Bautista PA-C Unavailable [phone] Miranda Queen [facility] Unavailable Unavailable Leeann Rinaldi MD Unavailable Miranda Queen [facility] Unavailable Unavailable Dyan Fuentes MD Primary Care Provider [phone] Dyan Fuentes MD Unavailable [phone] Katiana Read MD Unavailable [phone] Meme Singleton PhD Unavailable [phone] Deena Garza APRN LITHOGRAPHIC PRESS FEEDER Unavailable +[phone] Mary Del Cid NP Unavailable [phone] Elham Stack [facility] Unavailable [phone] Emerita Potter [facility] Unavailable [phone] Mary Del Cid NP Unavailable [phone] Michelle Guzman DPM, Podiatry /Foot and Ankle Surgery Unavailable Dyan Fuentes MD Unavailable [phone] Mary Del Cid NP Unavailable [phone] Aubrey Jones MD Unavailable [phone] Blanquita Morales Unavailable Unavailable Aubrey Jones MD Unavailable [phone] Encounter Details Date Type Department Care Team (Late st Contact Info) Description 09/18/2020 [facility] Care Coordination [address] [place] [address] Minnie Houston Social History Tobacco Use [...] you attend chur ch or protestant services? Never 09/20/2020 Do you belong to [...] Answer Date Recorded PHQ-2 Score 2 01/01/2019 [facility] [place] of Occupat ional Health - Occupational Stress [...] COVID-19? Unable to assess 08/31/2020 12:49 AM SEATING CAPTAIN documented as of this encounter Plan of Treatment Upcoming Encounters Date Type Department Care Team (Late st Contact Info) Description 08/18/2023 3:00 PM SEATING CAPTAIN Office Visit [facility] [address] [place] [address] Katiana Read MD [address] [place] [address] [place] [address] documented as of this encounter Visit Diagnoses [...] as of this encounter Care Teams Medical Assistant Per Diem Relationship Specialty Start Date End Date Len Adhikari MD PCP - General Family Practice 11/08/16 05/09/22 [place] [address] [place] [address] PCP - General Family Medicine 05/18/22 Jovany Gonzalez MD [facility] 6600 [facility] 605 [place], [place] [address] Orthopedics 02/15/17 Staci Woodward NP [facility] [address] [place] [address] Nurse Practitioner Nurse Practitioner Psych/Mental Health 05/10/17 [place] [address] [address] [place], [place] 3[address] Assigned PCP 11/14/16 01/22/22 Reanna Smith, [facility] [address] [place] [address] Contour Grinder Dietitian, Registered 07/25/19 Katiana Read MD [address] 200 [place] [address] Assigned Endocrinology Provider 05/02/20 08/01/21 Jovita Daly MD [address] [place] [address] Assigned Surgical Provider 05/02/20 10/04/20 Alexander López MD [address] [place], [place] [address]E [facility] 106 [place], [place] [address] Assigned Sleep Provider 05/02/20 11/15/20 Jese Doyle MD 909 [facility] [place] [address] Assigned Pulmonology Provider 05/02/20 04/11/21 Roshni Nascimento RN Personal Advocate & Liaison (PAL) Family Medicine 08/18/20 Johana Groves, [facility] [address] [place] [address] Pharmacist Pharmacist 08/28/20 11/26/20 Kiet Swain MD [address] [facility] [address] [place], [place] [address] Referring Physician Psychiatry 09/19/20 Winsome Pike APRN LITHOGRAPHIC PRESS FEEDER [address] [place] [address] [phone] Nurse Practitioner Psychiatry 09/19/20 Tori Hines [facility] 2450 [place], [place] [address] Cardiac Rn Cardiac Rn - Clinical 09/19/20 Miranda Queen [facility] [address] [place] [address] Pharmacist Pharmacist 11/12/20 Winsome Pike APRN LITHOGRAPHIC PRESS FEEDER [address] [place] [address] 194704 Assigned Behavioral Health Provider 01/04/21 07/02/22 Marisel Aramndo MD [address] [place] [address] 372125 Gastroenterology 02/05/21 Marisel Armando MD [address] [place] [address] 047055 Assigned Gastroenterology Provider 03/08/21 12/24/22 Inderjit Ugalde MD [address] [facility] 300 [place], [place] [address] Assigned Surgical Provider 02/15/21 08/20/22 Wesley Barrett MD [address] [place] [address] 953005 Assigned Neuroscience Provider 05/10/21 Charles Jaramillo PA-C [address] 616415 Assigned Musculoskeletal Provider 04/26/21 10/15/22 [facility] [address] [place] [address] Assigned MTM Pharmacist 12/05/21 03/26/22 [place] [address] [place] [address] Assigned PCP 01/23/22 05/14/22 [facility] [address] [place] [address] Assigned MTM Pharmacist 04/07/22 05/14/22 [place] [address] [place] [address] Assigned PCP 05/15/22 Katiana Read MD [address] [place] [address] 055910 Assigned Endocrinology Provider 06/19/22 [place] PhD [address] [place] [address] Assigned Behavioral Health Provider 07/03/22 12/31/22 Deena Garza, SKETCHER LITHOGRAPHIC PRESS FEEDER [address] [place] [address] Assigned Pain Medication Provider 07/19/22 10/29/22 Mary Del Cid, DROP WIRE HANGER [address] [place] [address] Nurse Practitioner Nurse Practitioner 10/18/22 Elham Stack, [facility] 3033 [place] [address] Pharmacist Pharmacist 10/19/22 Emerita Potter, [facility] Clinic Commercial Leasing Manager Cardiac Rn - Clinical 10/29/22 11/02/22 [place] [address] [place] [address] Assigned Pain Medication Provider 10/30/22 12/03/22 Michelle Guzman DPM, Podiatry/Foot and Ankle Surgery [address] [place] [address] Assigned Musculoskeletal Provider 10/16/22 04/08/23 [place] [address] [place] [address] Assigned Pain Medication Provider 12/04/22 04/01/23 [place] [address] [place] [address] Nurse Practitioner Nurse Practitioner 01/17/23 01/17/23 Aubrey Jones MD [address] [place] [address] Cardiovascular Disease 03/28/23 Blanquita Morales Contour Grinder Diabetes Education 04/25/23 Aubrey Jones MD [address] [place] [address] Assigned Heart and Vascular Provider 05/07/23 documented as of this encounter
--- OUTSIDE RECORDS SUMMARY | 2023-08-03 12:55 | XMS_ITS | Encounter Summary ---
Author Name Unknown Organization [facility] [place] [facility] Address [address] [place] [address]. [place] [address] Care Team Providers Care Mailing Jogger Name Role Phone Len Adhikari MD Primary Care Provider Jovany Gonzalez MD Unavailable CrissyStaci jeong OFFICE CLERK Unavailable [phone] Len Adhikari MD Unavailable Reanna Smith RD Unavailable Jamshid Granados MD Unavailable Katiana Read MD Unavailable [phone] Jovita Daly MD Unavailable [phone] Alexander López MD Unamarcelina lable Jese Doyle MD Unavailable +[phone] Roshni Nascimento RN Unavailable Unavailable Johana Groves [facility] Unavailable Kiet Swain MD Unavailable [phone] Winsome Pike APRN FUR DRUMMER Unavailable [phone] Tori Hines [facility] Unavailable Miranda Queen [facility] Unavailable Unavailable Winsome Pike APRN FUR DRUMMER Unavailable Marisel Armando MD Unavailable Marisel Armando MD Unavailable Inderjit Ugalde MD Unavailable [phone] Wesley Barrett MD Unavailable +[phone] EllaCharles jimenez Michele GEIGER Unavailable +[phone] [facility] Unavailable Unavailable Leeann Rinaldi MD Unavailable Miranda Queen [facility] Unavailable Unavailable Dyan Fuentes MD Primary Care Provider [phone] Dyan Fuentes MD Unavailable [phone] Katiana Read MD Unavailable [phone] Meme Singleton PhD Unavailable [phone] Deena Garza APRN FUR DRUMMER Unavailable +[phone] Mary Del Cid NP Unavailable + [phone] [facility] Unavailable Emerita Potter [facility] Unavailable +[phone] Mary Del Cid NP Unavailable + [phone] [...] Team (Late st Contact Info) Description 08/08/2020 [facility] [address] [place] [phone] Katiana Read MD [address] [place] [address] Medication Refill Social History Tobacco Use Types [...] COVID-19? No / Unsure 08/09/2020 2:25 PM LOCKSMITH APPRENTICE documented as of this encounter Miscellaneous Notes * Telephone Encounter - Katiana Read MD - 08/12/2020 12:13 PM LOCKSMITH APPRENTICE Rx sent. SMITH APPRENTICE * Telephone Encounter - Marisel Thompson RN - 08/08/2020 1:32 PM CST Pending Prescriptions: Disp Refills NOVOLOG FLEXPEN 100 UNIT/ML soln [Pharmacy*15 mL 1 Sig: INJECT SUBCUTANEOUSLY 3 TIMES A DAY BEFORE MEALS USING A SLIDING SCALE. MAX 10 UNITS PER DAY Routing refill request to provider for review/approval because: Patient fails protocol SMITH APPRENTICE documented in this encounter Plan of Treatment Upcoming Encounters Date Type Department Care Team (Late st Contact Info) Description 08/18/2023 3:00 PM LOCKSMITH APPRENTICE Office Visit [facility] [address] [place] [address] Katiana Read MD [address] [place], [place] [address] documented as of this encounter Visit Diagnoses Diagnosis Type 1 diabetes mellitus with diabetic neuropathy (H) Type I (juvenile type) diabetes mellitus with neurological manifestations, not stated as uncontrolled documented in this encounter Additional Health Concerns Infection Onset Date Last Indicated Resolved Time Rule Out COVID-19 08/19/2020 08/19/2020 08/19/2020 4:40 PM LOCKSMITH APPRENTICE Rule Out C-difficile 02/27/2021 02/27/2021 021 6:10 [...] documented as of this encounter Care Teams Mailing Jogger Relationship Specialty Start Date End Date Len Adhikari MD PCP - General Family Practice 11/08/16 05/09/22 [place] [address] [place] [address] PCP - General Family Medicine 05/18/22 Jovany Gonzalez MD [facility] [address] [facility] 605 [place] [address] Orthopedics 02/15/17 Staci Woodward OFFICE CLERK [facility] [address] [place] [address] Nurse Practitioner Nurse Practitioner Psych/Mental Health 05/10/17 [place] [address] [facility] [place] [address] Assigned PCP 11/14/16 01/22/[address] [facility] [address] [place] [address] Car Lubricator Dietitian, Registered 07/25/19 [place] [address] [facility] 300 [place] [address] Assigned Musculoskeletal Provider 05/02/20 09/13/20 Katiana Read MD [address] [facility] 200 [place] [address] Assigned Endocrinology Provider 05/02/20 08/01/21 Jovita Daly MD [address] [place] [address] Assigned Surgical Provider 05/02/20 10/04/20 Alexander López MD 606 [email or web address] [address] [place] [address] Assigned Sleep Provider 05/02/20 11/15/20 Jese Doyle MD [address] [place] [address] 828655 Assigned Pulmonology Provider 05/02/20 04/11/21 Roshni Nascimento, RN Personal Advocate & Liaison (PAL) Family Medicine 08/18/20 Johana Groves, [facility] [address] [place] [address] [place], [place] [phone] Pharmacist Pharmacist 08/28/20 11/26/20 Kiet Swain MD [address] [place] [address] [id number] Referring Physician Psychiatry 09/19/20 Winsome Pike APRN FUR DRUMMER [address] [place] [address] Nurse Practitioner Psychiatry 09/19/20 Tori Hines [facility] [address] [place] [address] Business Transformation Manager Business Transformation Manager - Clinical 09/19/20 [facility] [address] [place] [address] Pharmacist Pharmacist 11/12/20 Winsome Pike APRN FUR DRUMMER [address] [place] [address] [phone] Assigned Behavioral Health Provider 01/04/21 07/02/22 Marisel Armando MD [address] [place] [address] 568855 Gastroenterology 02/05/21 Marisel Armando MD [address] [place] [address] Assigned Gastroenterology Provider 03/08/21 12/24/22 Inderjit Ugalde MD [address] [facility] 300 [place] [address] Assigned Surgical Provider 02/15/21 08/20/22 Wesley Barrett MD 420 [facility] 96 [place] [address] Assigned Neuroscience Provider 05/10/21 Charles Jaramillo PA-C 6545 [facility] 450 [place] [address] Assigned Musculoskeletal Provider 04/26/21 10/15/22 [facility] [address] [place] [address] Assigned MTM Pharmacist 12/05/21 03/26/22 [place] [address] [place] [address] Assigned PCP 01/23/22 05/14/[address] [facility] [address] [place] [address] Assigned MTM Pharmacist 04/07/22 05/14/22 [place] [address] [place] [address] Assigned PCP 05/15/22 Katiana Read MD [address] [address] [place] [address] Assigned Endocrinology Provider 06/19/22 [place] [address] [place] [address] Assigned Behavioral Health Provider 07/03/22 12/31/22 Deena Garza APRN FUR DRUMMER [address] [place] [address] Assigned Pain Medication Provider 07/19/22 10/29/22 Mary Del Cid, RAFAEL [address] [place] [address] Nurse Practitioner Nurse Practitioner 10/18/22 Elham Stack, [facility] 30[address] [place], [place] [address] Pharmacist Pharmacist 10/19/22 Emerita Potter, [facility] Clinic Paraffin Plant Operator Business Transformation Manager - Clinical 10/29/22 11/02/22 Mary Del Cid, RAFAEL [address] [place] [address] Assigned Pain Medication Provider 10/30/22 12/03/22 Michelle Guzman, DPM, Podiatry/Foot and Ankle Surgery [address] [place] [address] Assigned Musculoskeletal Provider 10/16/22 04/08/23 [place] [address] [place] [address] Assigned Pain Medication Provider 12/04/22 04/01/23 [place] [address] [place] [address] Nurse Practitioner Nurse Practitioner 01/17/23 01/17/23 Aubrey Jones MD [address] [place] [address] Cardiovascular Disease 03/28/23 Blanquita Morales Car Lubricator Diabetes Education 04/25/23 Aubrey Jones MD [address] [place] [address] Assigned Heart and Vascular Provider 05/07/23 documented as of this encounter
--- OUTSIDE RECORDS SUMMARY | 2023-08-03 12:55 | XMS_ITS | Encounter Summary ---
Author Name Unknown Organization [place] [facility] Address [address] [place] [address]. [place] [address] Care Team Providers Care Color Matcher Name Role Phone Len Adhikari MD Primary Care Provider Jovany Gonzalez MD Unavailable [phone] CrissyStaci jeong IMPREGNATOR Unavailable [phone] Len Adhikari MD Unavailable Reanna Smith [address] Unavailable Jamshid Granados MD Unavailable Katiana Read MD Unavailable [phone] Jovita Daly MD Unavailable [phone] Alexander López MD Unamarcelina lable Jese Doyle MD Unavailable [phone] Roshni Nascimento RN Unavailable Unavailable Johana Groves [facility] Unavailable [phone] Kiet Swain MD Unavailable [phone] Winsome Pike APRN LENS EDGER Unavailable [phone] Tori Hines [facility] Unavailable Miranda Queen [facility] Unavailable Unavailable Winsome Pike APRN LENS EDGER Unavailable Marisel Armando MD Unavailable Marisel Armando MD Unavailable Inderjit Ugalde MD Unavailable [phone] Wesley Barrett MD Unavailable +[phone] EllaCharles Michele GEIGER Unavailable +[phone] Miranda Queen [facility] Unavailable Unavailable Leeann Rinaldi MD Unavailable Miranda Queen [facility] Unavailable Unavailable Dyan Fuentes MD Primary Care Provider [phone] Dyan Fuentes MD Unavailable [phone] Katiana Read MD Unavailable [phone] Meme Singleton PhD Unavailable [phone] Deena Garza APRN LENS EDGER Unavailable [phone] Mary Del Cid NP Unavailable + [phone] Elham Stack [facility] Unavailable [phone] Emerita Potter [facility] Unavailable [phone] Mary Del Cid NP Unavailable + [phone] [...] Team (Late st Contact Info) Description 08/13/2020 [facility] [address] [place] [address] [place] [address] [place] [address] Home Care/Hospice Social History Tobacco Use Types [...] COVID-19? Unable to assess 08/15/2020 8:30 AM AUTOMATIC CHIEF documented as of this encounter Miscellaneous Notes [...] can be reached at: Other phone number: [phone] Best Time: anytime Can we leave a detailed message on this number? YES Call taken on 08/13/2020 at 3:57 PM by Jese Bunch MATIC CHIEF documented in this encounter Plan of Treatment Upcoming Encounters Date Type Department Care Team (Late st Contact Info) Description 08/18/2023 3:00 PM AUTOMATIC CHIEF Office Visit [facility] [address] [place] [address] Katiana Read MD [address] [place] [address] documented as of this encounter Visit Diagnoses Not on filedocumented in this encounter Additional Health Concerns Infection Onset Date Last Indicated Resolved Time Rule Out COVID-19 08/19/2020 08/19/2020 08/19/2020 4:40 PM AUTOMATIC CHIEF Rule Out C-difficile 02/27/2021 02/27/2021 021 [...] documented as of this encounter Care Teams Color Matcher Relationship Specialty Start Date End Date Len Adhikari MD PCP - General Family Practice 11/08/16 05/09/22 [place] [address] [place] [address] PCP - General Family Medicine 05/18/22 Jovany Gonzalez MD [facility] 6600 [facility] 605 [place] [address] Orthopedics 02/15/17 Staci Woodward IMPREGNATOR [facility] [address] [place] [address] Nurse Practitioner Nurse Practitioner Psych/Mental Health 05/10/17 [place] [address] [place] [address] Assigned PCP 11/14/16 01/22/22 Reanna Smith, [facility] [address] [place] [address] Parking Lot Attendant And Cashier Dietitian, Registered 07/25/19 [place] [address] [facility] [address] [place], [place] [address] Assigned Musculoskeletal Provider 05/02/20 09/13/20 Katiana Read MD [address] [place], [place] [address] Assigned Endocrinology Provider 05/02/20 08/01/21 Jovita Daly MD [address] [place] [address] Assigned Surgical Provider 05/02/20 10/04/20 Alexander López MD [address] [place], [place] 36[address] Assigned Sleep Provider 05/02/20 11/15/20 Jese Doyle MD [address] [facility] [place], [place] 263455 Assigned Pulmonology Provider 05/02/20 04/11/21 Roshni Nascimento, RN Personal Advocate & Liaison (PAL) Family Medicine 08/18/20 Johana Groves [facility] [address] [facility] [place] [place] [address] Pharmacist Pharmacist 08/28/20 11/26/20 Kiet Swain MD [address] [place] [address] Referring Physician Psychiatry 09/19/20 Winsome Pike APRN LENS EDGER [address] [place] [address] Nurse Practitioner Psychiatry 09/19/20 Tori Hines [facility] [address] [place] [address] Ancillary Services Manager Therapy Ancillary Services Manager Therapy - Clinical 09/19/20 [facility] [address] [place] [address] Pharmacist Pharmacist 11/12/20 Winsome Pike APRN LENS EDGER [address] [place] [address] Assigned Behavioral Health Provider 01/04/21 07/02/22 Marisel Armando MD [address] [place] [address] 900495 Gastroenterology 02/05/21 Marisel Armando MD [address] [place] [address] Assigned Gastroenterology Provider 03/08/21 12/24/22 Inderjit Ugalde MD [address] [place] [address] Assigned Surgical Provider 02/15/21 08/20/22 Wesley Barrett MD 420 [facility] 96 [place] [address] Assigned Neuroscience Provider 05/10/21 Charles Jaramillo PA-C 6545 [facility] 450 [place] [address] Assigned Musculoskeletal Provider 04/26/21 10/15/22 [facility] [address] [place] [address] Assigned MTM Pharmacist 12/05/21 03/26/22 [place] [address] [place] [address] Assigned PCP 01/23/22 05/14/22 [facility] [address] [place] [address] Assigned MTM Pharmacist 04/07/22 05/14/22 [place] [address] [place] [address] Assigned PCP 05/15/22 Katiana Read MD [address] 200 [place] [address] Assigned Endocrinology Provider 06/19/22 [place] [address] [place] [address] Assigned Behavioral Health Provider 07/03/22 12/31/22 Deena Garza APRN CNP [address] [place] [address] Assigned Pain Medication Provider 07/19/22 10/29/22 [place] [address] [place] [address] Nurse Practitioner Nurse Practitioner 10/18/22 Elham Stack, [facility] 3033 [place] [address] Pharmacist Pharmacist 10/19/22 Emerita Potter, [facility] Clinic Architecture Technician Ancillary Services Manager Therapy - Clinical 10/29/22 11/02/22 [place] [address] [place] [address] Assigned Pain Medication Provider 10/30/22 12/03/22 Michelle Guzman DPM, Podiatry/Foot and Ankle Surgery [address] [place] [address] Assigned Musculoskeletal Provider 10/16/22 04/08/23 [place] [address] [place] [address] Assigned Pain Medication Provider 12/04/22 04/01/23 [place] [address] [place] [address] Nurse Practitioner Nurse Practitioner 01/17/23 01/17/23 Aubrey Jones MD [address] [place] [address] Cardiovascular Disease 03/28/23 Blanquita Morales Parking Lot Attendant And Cashier Diabetes Education 04/25/23 Aubrey Jones MD [address] [place] [address] Assigned Heart and Vascular Provider 05/07/23 documented as of this encounter
--- OUTSIDE RECORDS SUMMARY | 2023-08-03 12:55 | XMS_ITS | Encounter Summary ---
Author Name Unknown Organization [place] Address [address] [place] [address]. [place] [address] Care Team Providers Care Fabrics And Material Cutter Name Role Phone Len Adhikari MD Primary Care Provider Jovany Gonzalez MD Unavailable CrissyStaci jeong BOTTLING MACHINE OPERATOR Unavailable [phone] Len Adhikari MD Unavailable [phone] Unavailable [phone] Jamshid Granados MD Unavailable Katiana Read MD Unavailable [phone] Jovita Daly MD Unavailable [phone] Alexander López MD Unamarcelina lable Jese Doyle MD Unavailable [phone] Roshni Nascimento RN Unavailable Unavailable Johana Groves [facility] Unavailable [phone] Kiet Swain MD Unavailable [phone] Winsome Pike APRN CORN PICKER Unavailable [phone] Tori Hines [facility] Unavailable Miranda Queen [facility] Unavailable Unavailable Winsome Pike APRN CORN PICKER Unavailable Marisel Armando MD Unavailable Marisel Armando MD Unavailable Inderjit Ugalde MD Unavailable [phone] Wesley Barrett MD Unavailable +[phone] EllaCharles jimenez Michele GEIGER Unavailable +[phone] [facility] Unavailable Unavailable Leeann Rinaldi MD Unavailable Miranda Queen [facility] Unavailable Unavailable Dyan Fuentes MD Primary Care Provider [phone] Dyan Fuentes MD Unavailable +[phone] Katiana Read MD Unavailable [phone] Meme Singleton PhD Unavailable [phone] Deena Garza APRN CORN PICKER Unavailable +[phone] Mary Del Cid NP Unavailable + [phone] [facility] Unavailable [phone] Emerita Potter [facility] Unavailable [phone] Mary Del Cid NP Unavailable + [phone] Michelle Guzman DPM, Podiatry /Foot and Ankle Surgery Unavailable Dyan Fuentes MD Unavailable [phone] Mary Del Cid NP Unavailable + [phone] Aubrey Jones MD Unavailable [phone] Blanquita Morales Unavailable Unavailable Aubrey Jones MD Unavailable [phone] Encounter Details Date Type Department Care Team (Late st Contact Info) Description 09/05/2020 [facility] [address] [place] [address] [place] [address] [place] [address] Social History Tobacco Use Types Packs/Day Years [...] COVID-19? Unable to assess 08/31/2020 12:49 AM ANALYTICAL LABORATORY TECHNICIAN documented as of this encounter Plan of Treatment Upcoming Encounters Date Type Department Care Team (Late st Contact Info) Description 08/18/2023 3:00 PM ANALYTICAL LABORATORY TECHNICIAN Office Visit [facility] [address] [facility] [address] [place] [address] Katiana Read MD [address] [place] [address] [address] [place] [address] documented as of this encounter Visit Diagnoses [...] Family Practice 11/08/16 05/09/22 [place] [address] [place] [address] PCP - General Family Medicine 05/18/22 Jovany Gonzalez MD [facility] 6600 [facility] 605 [place], [place] [address] Orthopedics 02/15/17 Staci Woodward NP [place] [address] [address] [place], [place] 56[address] Nurse Practitioner Nurse Practitioner Psych/Mental Health 05/10/17 [place] [address] [place] [address] Assigned PCP 11/14/16 01/22/[address] [facility] [address] [place], [place] 206837 Jail Guard Dietitian, Registered 07/25/19 [place] [address] [facility] 300 [place], [place] [address] Assigned Musculoskeletal Provider 05/02/20 09/13/20 Katiana Read MD [address] [facility] 200 [place] [address] Assigned Endocrinology Provider 05/02/20 08/01/21 Jovita Daly MD [address] [place] [address] Assigned Surgical Provider 05/02/20 10/04/20 Alexander López MD [address] [facility] 106 [place], [place] [address] Assigned Sleep Provider 05/02/20 11/15/20 Jese Doyle MD 909 [place], [place] [address] Assigned Pulmonology Provider 05/02/20 04/11/21 Roshni Nascimento, RN Personal Advocate & Liaison (PAL) Family Medicine 08/18/20 Johana Groves, [facility] [address] [facility] [address] [place], [place] [id number] Pharmacist Pharmacist 08/28/20 11/26/20 Kiet Swain MD [address] [facility] [place], [place] [address] Referring Physician Psychiatry 09/19/20 Winsome Pike APRN CORN PICKER [address] [place] [address] Nurse Practitioner Psychiatry 09/19/20 Tori Hines, [facility] 2450 [place], [place] [address] Antique Finisher Antique Finisher - Clinical 09/19/[address] [facility] [address] [place] [address] Pharmacist Pharmacist 11/12/20 Winsome Pike APRN CORN PICKER [address] [place] [address] 813794 Assigned Behavioral Health Provider 01/04/21 07/02/22 Marisel Armando MD [address] [place] [address] 678055 Gastroenterology 02/05/21 Marisel Armando MD [address] [place] [address] 548525 Assigned Gastroenterology Provider 03/08/21 12/24/22 Inderjit Ugalde MD [address] [address] Assigned Surgical Provider 02/15/21 08/20/22 Wesley Barrett MD [address] [place] [address] 96 [place] [address] Assigned Neuroscience Provider 05/10/21 Charles Jaramillo PA-C 6545 [facility] [address] [address] Assigned Musculoskeletal Provider 04/26/21 10/15/[address] [facility] [address] [place] [address] Assigned MTM Pharmacist 12/05/21 03/26/22 [place] [address] [place] [address] Assigned PCP 01/23/22 05/14/[address] [facility] [address] [place] [address] Assigned MTM Pharmacist 04/07/22 05/14/22 [place] [address] [place] [address] Assigned PCP 05/15/22 Katiana Read MD [address] [place] [address] 378270 Assigned Endocrinology Provider 06/19/22 Meme [place] PhD [address] [place] [address] Assigned Behavioral Health Provider 07/03/22 12/31/22 Deena Garza APRN CORN PICKER [address] [place] [address] Assigned Pain Medication Provider 07/19/22 10/29/22 Mary Del Cid, RAFAEL [address] [place] [address] Nurse Practitioner Nurse Practitioner 10/18/22 Elham Stack, [facility] 3033 [place] [address] Pharmacist Pharmacist 10/19/22 Emerita Potter, [facility] Clinic Mechanic Insulator Antique Finisher - Clinical 10/29/22 11/02/22 [place] [address] [place] [address] Assigned Pain Medication Provider 10/30/22 12/03/22 Michelle Guzman DPM, Podiatry/Foot and Ankle Surgery [address] [place] [address] Assigned Musculoskeletal Provider 10/16/22 04/08/23 [place] [address] [place] [address] Assigned Pain Medication Provider 12/04/22 04/01/23 [place] [address] [place] [address] Nurse Practitioner Nurse Practitioner 01/17/23 01/17/23 Aubrey Jones MD [address] [place] [address] Cardiovascular Disease 03/28/23 Blanquita Morales Jail Guard Diabetes Education 04/25/23 Aubrey Jones MD [address] [place] [address] Assigned Heart and Vascular Provider 05/07/23 documented as of this encounter
--- OUTSIDE RECORDS SUMMARY | 2023-08-03 12:55 | XMS_ITS | Encounter Summary ---
Author Name Unknown Organization [place] Address [address] [place] [address]. [place] [address] Care Team Providers Care Structural Test Engineer Name Role Phone Len Adhikari MD Primary Care Provider [phone] Jovany Gonzalez MD Unavailable CrissyStaci jeong EQUITY TRADER Unavailable [phone] Len Adhikari MD Unavailable [phone] Unavailable Katiana Read MD Unavailable [phone] Alexander López MD Unavai lable Jese Doyle MD Unavailable [phone] Roshni Nascimento RN Unavailable Unavailable Johana Groves [facility] Unavailable [phone] Kiet Swain MD Unavailable Winsome Pike APRN DATA MANAGEMENT SPECIALIST Unavailable [phone] Tori Hines [facility] Unavailable Miranda Queen [facility] Unavailable Unavailable Winsome Pike APRN DATA MANAGEMENT SPECIALIST Unavailable [phone] Marisel Armando MD Unavailable Marisel Armando MD Unavailable Inderjit Ugalde MD Unavailable [phone] Wesley Barrett MD Unavailable [phone] Charles Jaramillo PA-C Unavailable [phone] Miranda Queen [facility] Unavailable Unavailable Leeann Rinaldi MD Unavailable Miranda Queen [facility] Unavailable Unavailable Dyan Fuentes MD Primary Care Provider [phone] Dyan Fuentes MD Unavailable +[phone] Katiana Read MD Unavailable [phone] Meme Singleton PhD Unavailable [phone] Deena Garza DYNAMICS AX SOLUTION ARCHITECT DATA MANAGEMENT SPECIALIST Unavailable +[phone] Mary Del Cid NP Unavailable + [phone] Elham Stack [facility] Unavailable Emerita Potter PIE CRIMPING MACHINE OPERATOR Unavailable [phone] Mary Del Cid NP Unavailable [phone] Michelle Guzman DPM, Podiatry /Foot and Ankle Surgery Unavailable Dyan Fuentes MD Unavailable [phone] Mary Del Cid NP Unavailable [phone] Aubrey Jones MD Unavailable [phone] Blanquita Morales Unavailable Unavailable Aubrey Jones MD Unavailable [phone] Encounter Details Date Type Department Care Team (Late st Contact Info) Description 10/27/2020 [facility] [address] [address] Tori Hines, PIE CRIMPING MACHINE OPERATOR [address] [place] [address] Social History Tobacco Use Types [...] How often do you attend chur or methodist services? Never 09/20/2020 Do you [...] Answer Date Recorded PHQ-2 Score 2 01/01/2019 [facility] [place] of Occupat ional Health - Occupational Stress [...] Contact Info) Description 08/18/2023 3:00 PM BUSINESS PRACTICES OFFICER Office Visit [place] [address] [place] [address] Katiana Read MD [address] [place], [place] [address] documented as of this encounter Visit Diagnoses [...] documented as of this encounter Care Teams Structural Test Engineer Relationship Specialty Start Date End Date Len Adhikari MD PCP - General Family Practice 11/08/16 05/09/22 [place] [address] [place] [address] PCP - General Family Medicine 05/18/22 Jovany Gonzalez MD [facility] 6600 [facility] [address] [place] [address] Orthopedics 02/15/17 Staci Woodward EQUITY TRADER [place] [address] [place] [address] Nurse Practitioner Nurse Practitioner Psych/Mental Health 05/10/17 [place] [address] [facility] [place] [address] Assigned PCP 11/14/16 01/22/[address] [facility] [address] [place] [address] Shot Polisher And Inspector Dietitian, Registered 07/25/19 Katiana Read MD [address] [facility] 200 [place] [address] Assigned Endocrinology Provider 05/02/20 08/01/21 Alexander López MD [address] [place], [place] [address] Assigned Sleep Provider 05/02/20 11/15/20 Jese Doyle MD [address] [place], [place] [address] Assigned Pulmonology Provider 05/02/20 04/11/21 Roshni Nascimento, RN Personal Advocate & Liaison (PAL) Family Medicine 08/18/20 Johana Groves, [facility] [address] [place] [id number] Pharmacist Pharmacist 08/28/20 11/26/20 Kiet Swain MD 2450 [facility] S NG15 [place], [place] [address] Referring Physician Psychiatry 09/19/20 Winsome Pike APRN DATA MANAGEMENT SPECIALIST [address] [place] [address] Nurse Practitioner Psychiatry 09/19/20 Tori Hines, [facility] [address] [place], [place] [address] Back Hand Back Hand - Clinical 09/19/20 Miranda Queen [facility] [address] [place] [address] Pharmacist Pharmacist 11/12/20 Winsome Pike APRN DATA MANAGEMENT SPECIALIST [address] [place] [address] 112774 Assigned Behavioral Health Provider 01/04/21 07/02/22 Marisel Armando MD [address] [place] [address] 935345 Gastroenterology 02/05/21 Marisel Armando MD [address] [place] [address] 778775 Assigned Gastroenterology Provider 03/08/21 12/24/22 Inderjit Ugalde MD [address] [facility] 300 [place] [address] Assigned Surgical Provider 02/15/21 08/20/22 Wesley Barrett MD [address] [place] [address] Assigned Neuroscience Provider 05/10/21 Charles Jaramillo PA-C 6545 [facility] 450 [place] [address] Assigned Musculoskeletal Provider 04/26/21 10/15/22 Miranda Queen [facility] [address] [place] [address] Assigned MTM Pharmacist 12/05/21 03/26/22 [place] [address] [place] [address] Assigned PCP 01/23/22 05/14/22 Miranda Queen [facility] [address] [place] [address] Assigned MTM Pharmacist 04/07/22 05/14/22 [place] [address] [place] [address] Assigned PCP 05/15/22 Katiana Read MD [address] [place] [address] 200 [place], [place] [address] Assigned Endocrinology Provider 06/19/22 Meme Sing[place] PhD [address] [place] [address] Assigned Behavioral Health Provider 07/03/22 12/31/22 Deena Garza, DYNAMICS AX SOLUTION ARCHITECT DATA MANAGEMENT SPECIALIST [address] [place] [address] Assigned Pain Medication Provider 07/19/22 10/29/22 Mary Del Cid, RAFAEL [address] [place] [address] Nurse Practitioner Nurse Practitioner 10/18/22 Elham Stack, [facility] [address] [facility] [place] [address] Pharmacist Pharmacist 10/19/22 Emerita [address], [facility] Clinic Contact Center Analyst Back Hand - Clinical 10/29/22 11/02/22 [place] [address] [place] [address] Assigned Pain Medication Provider 10/30/22 12/03/22 Michelle Guzman DPM, Podiatry/Foot and Ankle Surgery [address] [place] [address] Assigned Musculoskeletal Provider 10/16/22 04/08/23 [place] [address] [place] [address] Assigned Pain Medication Provider 12/04/22 04/01/23 [place] [address] [place] [address] Nurse Practitioner Nurse Practitioner 01/17/23 01/17/23 Aubrey Jones MD [address] [place] [address] Cardiovascular Disease 03/28/23 Blanquita Morales Shot Polisher And Inspector Diabetes Education 04/25/23 Aubrey Jones MD [address] [place] [address] Assigned Heart and Vascular Provider 05/07/23 documented as of this encounter
--- OUTSIDE RECORDS SUMMARY | 2023-08-03 12:55 | XMS_ITS | Encounter Summary ---
Author Name Unknown Organization [place] Address [address] [place] [address]. [place] [address] Care Team Providers Care Zipper Measurer Name Role Phone Len Adhikari MD Primary Care Provider Jovany Gonzalez MD Unavailable CrissyStaci jeong KETTLE ROOM HELPER Unavailable [phone] Len Adhikari MD Unavailable Reanna Smith [address] Unavailable [phone] Jamshid Granados MD Unavailable Katiana Read MD Unavailable [phone] Jovita Daly MD Unavailable [phone] Alexander López MD Unamarcelina lable Jese Doyle MD Unavailable [phone] Roshni Nascimento RN Unavailable Unavailable Johana Groves [facility] Unavailable [phone] Kiet Swain MD Unavailable [phone] Winsome Pike APRN LABOR CONTRACT ANALYST Unavailable [phone] [facility] Unavailable Miranda Queen [facility] Unavailable Unavailable Winsome Pike APRN LABOR CONTRACT ANALYST Unavailable Marisel Armando MD Unavailable Marisel Armando MD Unavailable Inderjit Ugalde MD Unavailable [phone] Wesley Barrett MD Unavailable +[phone] EllaFordCharlesfaustino Bautista PA-C Unavailable [phone] Miranda Queen [facility] Unavailable Unavailable Leeann Rinaldi MD Unavailable Miranda Queen [facility] Unavailable Unavailable Dyan Fuentes MD Primary Care Provider [phone] Dyan Fuentes MD Unavailable [phone] Katiana Read MD Unavailable [phone] Meme Singleton PhD Unavailable [phone] Deena Garza APRN LABOR CONTRACT ANALYST Unavailable +[phone] Mary Del Cid NP Unavailable + [phone] Elham Stack [facility] Unavailable +[phone] [facility] Unavailable [phone] Mary Del Cid NP Unavailable [phone] Michelle Guzman DPM, Podiatry /Foot and Ankle Surgery Unavailable Dyan Fuentes MD Unavailable [phone] Mary Del Cid NP Unavailable [phone] Aubrey Jones MD Unavailable [phone] Blanquita Morales Unavailable Unavailable Aubrey Jones MD Unavailable [phone] Encounter Details Date Type Department Care Team (Late st Contact Info) Description 08/19/2020 [facility] [address] [address] Davina Casillas LICSW [facility] [address], [address] [place], [place] [address] Social History Tobacco Use Types Packs/Day Years [...] COVID-19? No / Unsure 08/19/2020 11:04 AM DENSITOMETRIST documented as of this encounter Plan of Treatment Upcoming Encounters Date Type Department Care Team (Late st Contact Info) Description 08/18/2023 3:00 PM DENSITOMETRIST Office Visit [facility] [address] [place] [address] Katiana Read MD [address] [place] [address] documented as of this encounter Visit Diagnoses Not on filedocumented in this encounter Additional Health Concerns Infection Onset Date Last Indicated Resolved Time Rule Out COVID-19 08/19/2020 08/19/2020 08/19/2020 4:40 PM DENSITOMETRIST Rule Out C-difficile 02/27/2021 02/27/2021 021 6:10 [...] documented as of this encounter Care Teams Zipper Measurer Relationship Specialty Start Date End Date Len Adhikari MD PCP - General Family Practice 11/08/16 05/09/22 [place] [address] [place] [address] PCP - General Family Medicine 05/18/22 Jovany Gonzalez MD [facility] 6600 [facility] [address] [place] [address] Orthopedics 02/15/17 Staci Woodward KETTLE ROOM HELPER [place] [address] [place] [address] Nurse Practitioner Nurse Practitioner Psych/Mental Health 05/10/17 [place] [address] [facility] [place] [address] Assigned PCP 11/14/16 01/22/[address] [facility] [address] [place] [address] Pattern Puncher Dietitian, Registered 07/25/19 [place] [address] [facility] [address] [place], [place] [address] Assigned Musculoskeletal Provider 05/02/20 09/13/20 Katiana Read MD [address] [place], [place] [address] Assigned Endocrinology Provider 05/02/20 08/01/21 Jovita Daly MD [address] [place], [place] [address] Assigned Surgical Provider 05/02/20 10/04/20 Alexander López MD [address] 106 [place] [address] Assigned Sleep Provider 05/02/20 11/15/20 Jese Doyle MD 909 [place] [address] Assigned Pulmonology Provider 05/02/20 04/11/21 Roshni Nascimento RN Personal Advocate & Liaison (PAL) Family Medicine 08/18/20 [facility] [facility] [place] [address] Pharmacist Pharmacist 08/28/20 11/26/20 Kiet Swain MD 2450 [facility]15 [place], [place] [address] Referring Physician Psychiatry 09/19/20 Winsome Pike, METER/RELAY CRAFTSMAN LABOR CONTRACT ANALYST [address] [address] Nurse Practitioner Psychiatry 09/19/[address] [facility] 2450 [place], [place] [address] Outdoor Education Teacher Outdoor Education Teacher - Clinical 09/19/20 Miranda Queen [facility] [address] [place] [address] Pharmacist Pharmacist 11/12/20 Winsome Pike APRN LABOR CONTRACT ANALYST [facility] 624024 Assigned Behavioral Health Provider 01/04/21 07/02/22 Marisel Armando MD [address] [place] [address] 767995 Gastroenterology 02/05/21 Marisel Armando MD [address] [place] [address]115 Assigned Gastroenterology Provider 03/08/21 12/24/22 Inderjit Ugalde MD [address] [facility] 300 [place], [place] [address] Assigned Surgical Provider 02/15/21 08/20/22 Wesley Barrett MD 420 [facility] 96 [place], [place] [address] Assigned Neuroscience Provider 05/10/21 Charles Jaramillo PA-C [address] [address] Assigned Musculoskeletal Provider 04/26/21 10/15/22 [facility] [address] [place] [address] Assigned MTM Pharmacist 12/05/21 03/26/22 [place] [address] [place] [address] Assigned PCP 01/23/22 05/14/22 [facility] [address] [place] [address] Assigned MTM Pharmacist 04/07/22 05/14/22 [place] [address] [place] [address] Assigned PCP 05/15/22 Katiana Read MD [address] [place] [address] Assigned Endocrinology Provider 06/19/22 [place] [address] [place] [address] Assigned Behavioral Health Provider 07/03/22 12/31/22 Deena Garza, METER/RELAY CRAFTSMAN LABOR CONTRACT ANALYST [address] [place] [address] Assigned Pain Medication Provider 07/19/22 10/29/22 Mary Del Cid, RAFAEL [address] [place] [address] Nurse Practitioner Nurse Practitioner 10/18/22 Elham Stack, [facility] 3033 [place] [address] Pharmacist Pharmacist 10/19/22 Abbey Emerita M, [facility] Clinic Sql Programmer Analyst Outdoor Education Teacher - Clinical 10/29/22 11/02/22 [place] [address] [address] [place] [address] Assigned Pain Medication Provider 10/30/22 12/03/22 Michelle Guzman, DPM, Podiatry/Foot and Ankle Surgery [address] [place] [address] Assigned Musculoskeletal Provider 10/16/22 04/08/23 [place] [address] [place] [address] Assigned Pain Medication Provider 12/04/22 04/01/23 [place] [address] [place] [address] Nurse Practitioner Nurse Practitioner 01/17/23 01/17/23 Aubrey Jones MD [address] [place] [address] Cardiovascular Disease 03/28/23 Blanquita Morales Pattern Puncher Diabetes Education 04/25/23 Aubrey Jones MD [address] [place] [address] Assigned Heart and Vascular Provider 05/07/23 documented as of this encounter
--- OUTSIDE RECORDS SUMMARY | 2023-08-03 12:55 | XMS_ITS | Encounter Summary ---
Author Name Unknown Organization [place] Address [address] [place] [address]. [place] [address] Care Team Providers Care Dye Colorist Formulator Name Role Phone Len Adhikari MD Primary Care Provider Jovany Gonzalez MD Unavailable [phone] CrissyStaci jeong HELMET HAT SWEATBAND PUNCHER Unavailable [phone] Len Adhikari MD Unavailable [phone] Unavailable Jamshid Granados MD Unavailable Katiana Read MD Unavailable [phone] Jovita Daly MD Unavailable [phone] Alexander López MD Unamarcelina lable Jese Doyle MD Unavailable +[phone] Roshni Nascimento RN Unavailable Unavailable Johnaa Groves [facility] Unavailable Kiet Swain MD Unavailable [phone] Winsome Pike APRN COMMUNITY HEALTH PROGRAM COORDINATOR Unavailable +[phone] Tori Hines [facility] Unavailable Miranda Queen [facility] Unavailable Unavailable Winsome Pike APRN COMMUNITY HEALTH PROGRAM COORDINATOR Unavailable Marisel Armando MD Unavailable Marisel Armando MD Unavailable Inderjit Ugalde MD Unavailable [phone] Wesley Barrett MD Unavailable +[phone] EllaFordCharlesfaustino Bautista PA-C Unavailable +[phone] iMranda Queen [facility] Unavailable Unavailable Leeann Rinaldi MD Unavailable Miranda Queen [facility] Unavailable Unavailable Dyan Fuentes MD Primary Care Provider [phone] Dyan Fuentes MD Unavailable +[phone] Katiana Read MD Unavailable [phone] Meme Singleton PhD Unavailable [phone] Deena Garza APRN COMMUNITY HEALTH PROGRAM COORDINATOR Unavailable +[phone] Mary Del Cid NP Unavailable + [phone] Elham Stack [facility] Unavailable +[phone] Emerita Potter [facility] Unavailable [phone] Mary Del Cid NP Unavailable + [phone] Michelle Guzman DPM, Podiatry /Foot and Ankle Surgery Unavailable Dyan Fuentes MD Unavailable +[phone] Mary Del Cid NP Unavailable + [phone] Aubrey Jones MD Unavailable [phone] Blanquita Morales Unavailable Unavailable Aubrey Jones MD Unavailable [phone] Encounter Details Date Type Department Care Team (Late st Contact Info) Description 08/19/2020 [facility] [address] [address] Justina Cunningham [address] [place] [address] Social History Tobacco Use Types Packs/Day Years [...] COVID-19? No / Unsure 08/19/2020 11:04 AM YOUTH LIAISON OFFICER documented as of this encounter Miscellaneous Notes [...] to reach patient: Home number on file [phone] (home) Best Time: N/A Can we leave a detailed message on this number? YES Travel screening: Not Applicable H LIAISON OFFICER documented in this encounter Plan of Treatment Upcoming Encounters Date Type Department Care Team (Late st Contact Info) Description 08/18/2023 3:00 PM YOUTH LIAISON OFFICER Office Visit [facility] [address] [place] [address] Katiana Read MD [address] [place] [address] documented as of this encounter Visit Diagnoses Not on filedocumented in this encounter Additional Health Concerns Infection Onset Date Last Indicated Resolved Time Rule Out COVID-19 08/19/2020 08/19/2020 08/19/2020 4:40 PM YOUTH LIAISON OFFICER Rule Out C-difficile 02/27/2021 02/27/2021 021 [...] documented as of this encounter Care Teams Dye Colorist Formulator Relationship Specialty Start Date End Date Len Adhikari MD PCP - General Family Practice 11/08/16 05/09/22 [place] [address] [place] [address] PCP - General Family Medicine 05/18/22 Jovany Gonzalez MD [facility] [address] [place] [address] Orthopedics 02/15/17 Staci Woodward NP [place] [address] [place] [address] Nurse Practitioner Nurse Practitioner Psych/Mental Health 05/10/17 [place] [address] [place] [address] Assigned PCP 11/14/16 01/22/[address] [facility] [address] [place] [address] Skating Rink Ice Maker Dietitian, Registered 07/25/19 [place] [address] [facility] [address] [place] [address] Assigned Musculoskeletal Provider 05/02/20 09/13/20 Katiana Read MD [address] [facility] 200 [place], [place] [address] Assigned Endocrinology Provider 05/02/20 08/01/21 Jovita Daly MD [address] [place] [address] Assigned Surgical Provider 05/02/20 10/04/20 Alexander López MD [address] [facility] 106 [place], [place] [address] Assigned Sleep Provider 05/02/20 11/15/20 Jese Doyle MD 909 [facility] [place], [place] [address] Assigned Pulmonology Provider 05/02/20 04/11/21 Roshni Nascimento, RN Personal Advocate & Liaison (PAL) Family Medicine 08/18/20 Johana Groves [facility] [address] [facility] [address] [place], [place] [address] Pharmacist Pharmacist 08/28/20 11/26/20 Kiet Swain MD [address] [place] [address] Referring Physician Psychiatry 09/19/20 Winsome Pike APRN COMMUNITY HEALTH PROGRAM COORDINATOR [address] [place] [address] 686724 Nurse Practitioner Psychiatry 09/19/20 Tori Hines [facility] [address] [place] [address] [phone] Parachute Repairer Parachute Repairer - Clinical 09/19/20 [facility] [address] [place] [address] Pharmacist Pharmacist 11/12/20 Winsome Pike APRN COMMUNITY HEALTH PROGRAM COORDINATOR [address] [place] [address] Assigned Behavioral Health Provider 01/04/21 07/02/22 Marisel Armando MD [address] [place] [address] Gastroenterology 02/05/21 Marisel Armando MD [address] [place] [address] Assigned Gastroenterology Provider 03/08/21 12/24/22 Inderjit Ugalde MD [address] [place] [address] Assigned Surgical Provider 02/15/21 08/20/22 Wesley Barrett MD 420 [facility] 96 [place] [address] Assigned Neuroscience Provider 05/10/21 Charles Jaramillo PA-C 6545 [facility] 450 [place] [address] Assigned Musculoskeletal Provider 04/26/21 10/15/22 Miranda Queen [facility] [address] [place] [address] Assigned MTM Pharmacist 12/05/21 03/26/22 [place] [address] [place] [address] Assigned PCP 01/23/22 05/14/22 Miranda Queen [facility] [address] [place] [address] Assigned MTM Pharmacist 04/07/22 05/14/22 [place] [address] [place] [address] Assigned PCP 05/15/22 Katiana Read MD [address] 200 [place] [address] Assigned Endocrinology Provider 06/19/22 [place] [address] [place] [address] Assigned Behavioral Health Provider 07/03/22 12/31/22 Deena Garza, HOME CARE NURSE COMMUNITY HEALTH PROGRAM COORDINATOR [address] [place] [address] Assigned Pain Medication Provider 07/19/22 10/29/22 [place] [address] [address] [address] Nurse Practitioner Nurse Practitioner 10/18/22 Elham Stack, [facility] [address] [place], [place] [address] Pharmacist Pharmacist 10/19/22 Emerita Potter, [facility] Clinic General Assembler Parachute Repairer - Clinical 10/29/22 11/02/22 Mary Del Cid, RAFAEL [address] [address] [place] [address] Assigned Pain Medication Provider 10/30/22 12/03/22 Michelle Guzman DPAlisha, Podiatry/Foot and Ankle Surgery [address] [place] [address] Assigned Musculoskeletal Provider 10/16/22 04/08/23 [place] [address] [place] [address] Assigned Pain Medication Provider 12/04/22 04/01/23 [place] [address] [place] [address] Nurse Practitioner Nurse Practitioner 01/17/23 01/17/23 Aubrey Jones MD [address] [place] [address] Cardiovascular Disease 03/28/23 Blanquita Morales Skating Rink Ice Maker Diabetes Education 04/25/23 Aubrey Jones MD [address] [place] [address] Assigned Heart and Vascular Provider 05/07/23 documented as of this encounter
--- OUTSIDE RECORDS SUMMARY | 2023-08-03 12:55 | XMS_ITS | Encounter Summary ---
Author Name Unknown Organization [place] Address [address] [place] [address]. [place] [address] Care Team Providers Care Air Quality Instrument Specialist Name Role Phone Len Adhikari MD Primary Care Provider Jovany Gonzalez MD Unavailable CrissyStaci jeong BATCH ATTENDANT Unavailable [phone] Len Adhikari MD Unavailable Reanna Smith RD Unavailable [phone] Jamshid Granados MD Unavailable Katiana Read MD Unavailable [phone] Jovita Daly MD Unavailable [phone] Alexander López MD Unamarcelina lable Jese Doyle MD Unavailable [phone] Roshni Nascimento RN Unavailable Unavailable Johana Groves [facility] Unavailable Kiet wSain MD Unavailable [phone] Winsome Pike APRN GRAILS WEB APPLICATION DEVELOPER Unavailable [phone] Tori Hines [facility] Unavailable Miranda Queen [facility] Unavailable Unavailable Winsome Pike APRN GRAILS WEB APPLICATION DEVELOPER Unavailable Marisel Armando MD Unavailable Marisel Armando MD Unavailable Inderjit Ugalde MD Unavailable [phone] Wesley Barrett MD Unavailable +[phone] EllaFordCharlesfaustino Bautista PA-C Unavailable +[phone] Miranda Queen [facility] Unavailable Unavailable Leeann Rinaldi MD Unavailable Miranda Queen [facility] Unavailable Unavailable Dyan Fuentes MD Primary Care Provider [phone] Dyan Fuentes MD Unavailable +[phone] Katiana Read MD Unavailable [phone] Meme Singleton PhD Unavailable [phone] Deena Garza APRN GRAILS WEB APPLICATION DEVELOPER Unavailable [phone] Mary Del Cid NP Unavailable + [phone] Elham Stack [facility] Unavailable [phone] Emerita Potter [facility] Unavailable [phone] Mary Del Cid NP Unavailable + [phone] Michelle Guzman DPM, Podiatry /Foot and Ankle Surgery Unavailable Dyan Fuentes MD Unavailable [phone] Mary Del Cid NP Unavailable + [phone] Aubrey Jones MD Unavailable [phone] Blanquita Morales Unavailable Unavailable Aubrey Jones MD Unavailable [phone] Encounter Details Date Type Department Care Team (Late st Contact Info) Description 07/29/2020 Telephone [facility] Behavioral Health Intake [address] [place] [address] Generic, Behavioral Intake, MD Social [...] COVID-19? No / Unsure 07/29/2020 1:04 PM RESIDENTIAL INSURANCE INSPECTOR documented as of this encounter Miscellaneous Notes * Telephone Encounter - Lm Power - 07/29/2020 2:59 PM CST Pt Presents in [facility] ed. B: pt was seen by DEC and referring for inpatient due to increase PTSD and anxiety. Pt is C-Diff positive and in full enteric precautions. Per Ele, Infection Prevention Patient must be started on ananti-biotic and be diarrhea, vomit free for 48-72 hours. Will be admitted to medical. DENTIAL INSURANCE INSPECTOR documented in this encounter Plan of Treatment Upcoming Encounters Date Type Department Care Team (Late st Contact Info) Description 08/18/2023 3:00 PM RESIDENTIAL INSURANCE INSPECTOR Office Visit [facility] [address] [place] [address] Katiana Read MD [address] [place] [address] documented as of this encounter Visit Diagnoses Not on filedocumented in this encounter Additional Health Concerns Infection Onset Date Last Indicated Resolved Time Rule Out COVID-19 08/19/2020 08/19/2020 08/19/2020 4:40 PM RESIDENTIAL INSURANCE INSPECTOR Rule Out C-difficile 02/27/2021 02/27/2021 08/21/2 021 [...] documented as of this encounter Care Teams Air Quality Instrument Specialist Relationship Specialty Start Date End Date Len Adhikari MD PCP - General Family Practice 11/08/16 05/09/22 [place] [address] [place] [address] PCP - General Family Medicine 05/18/22 Jovany Gonzalez MD [facility] [address] [facility] [address] [place], [place] [address] Orthopedics 02/15/17 Staci Woodward NP [facility] [address] [place] [address] Nurse Practitioner Nurse Practitioner Psych/Mental Health 05/10/17 [place] [address] [place] [address] Assigned PCP 11/14/16 01/22/[address] [facility] [address] [place] [address] Certified Genetic Counselor Dietitian, Registered 07/25/19 [place] [address] [facility] [address] [place] [address] Assigned Musculoskeletal Provider 05/02/20 09/13/20 Katiana Read MD [address] [place] [address] [address] [place] [address] Assigned Endocrinology Provider 05/02/20 08/01/21 Jovita Daly MD [address] [place] [address] Assigned Surgical Provider 05/02/20 10/04/20 Alexander López MD [address] [facility] [address] [place] [address] Assigned Sleep Provider 05/02/20 11/15/20 Jese oDyle MD [address] [place], [place] [address] Assigned Pulmonology Provider 05/02/20 04/11/21 Roshni Nascimento, ZITA Personal Advocate & Liaison (PAL) Family Medicine 08/18/20 Johana Groves, [facility] [address] Pharmacist Pharmacist 08/28/20 11/26/20 Kiet Swain MD [facility] [address] [place] [address] Referring Physician Psychiatry 09/19/20 Winsome Pike APRN GRAILS WEB APPLICATION DEVELOPER [address] [place] [address] 977304 Nurse Practitioner Psychiatry 09/19/20 Tori Hines, [facility] [address] [place] [address] [id number] Track Layer Track Layer - Clinical 09/19/20 Miranda Queen [facility] [address] [place] [address] Pharmacist Pharmacist 11/12/20 Winsome Pike APRN GRAILS WEB APPLICATION DEVELOPER [address] [place] [address] Assigned Behavioral Health Provider 01/04/21 07/02/22 Marisel Armando MD [address] [place] [address] 480665 Gastroenterology 02/05/21 Marisel Armando MD [address] [place] [address] Assigned Gastroenterology Provider 03/08/21 12/24/22 Inderjit Ugalde MD [address] 473007 Assigned Surgical Provider 02/15/21 08/20/22 Wesley Barrett MD [address] [place] [address] [address] [place], [place] 87[address] Assigned Neuroscience Provider 05/10/21 Charles Jaramillo PA-C [address] [facility] [address] [place] [address] Assigned Musculoskeletal Provider 04/26/21 10/15/22 Miranda Queen [facility] [address] [place] [address] Assigned MTM Pharmacist 12/05/21 03/26/22 [place] [address] [place] [address] Assigned PCP 01/23/22 05/14/22 Miranda Queen [facility] [address] [place] [address] Assigned MTM Pharmacist 04/07/22 05/14/22 [place] [address] [place] [address] Assigned PCP 05/15/22 Katiana Read MD [address] [place] [address] [address] [place] [address] Assigned Endocrinology Provider 06/19/22 [place] [address] [place] [address] Assigned Behavioral Health Provider 07/03/22 12/31/22 Deena Garza APRN GRAILS WEB APPLICATION DEVELOPER [address] [place] [address] Assigned Pain Medication Provider 07/19/22 10/29/22 Mary Del Cid, BATCH ATTENDANT [address] [place] [address] Nurse Practitioner Nurse Practitioner 10/18/22 Elham Stack, [facility] [address] [place] [address] Pharmacist Pharmacist 10/19/22 Emerita Potter, [facility] Clinic Fashion Merchandiser Track Layer - Clinical 10/29/22 11/02/22 [place] [address] [place] [address] Assigned Pain Medication Provider 10/30/22 12/03/22 Michelle Guzman, DPM, Podiatry/Foot and Ankle Surgery [address] [place] [address] Assigned Musculoskeletal Provider 10/16/22 04/08/23 [place] [address] [place] [address] Assigned Pain Medication Provider 12/04/22 04/01/23 [place] [address] [place] [address] Nurse Practitioner Nurse Practitioner 01/17/23 01/17/23 Aubrey Jones MD [address] [place] [address] Cardiovascular Disease 03/28/23 Blanquita Morales Certified Genetic Counselor Diabetes Education 04/25/23 Aubrey Jones MD [address] [place] 198165 Assigned Heart and Vascular Provider 05/07/23 documented as of this encounter
--- OUTSIDE RECORDS SUMMARY | 2023-08-03 12:56 | XMS_ITS | Encounter Summary ---
Author Name Unknown Organization [facility] Address [address] [place] [address]. [place] [address] Care Team Providers Care Monorail Charger Operator Name Role Phone Len Adhikari MD Primary Care Provider [phone] Jovany Gonzalez MD Unavailable CrissyStaci jeong RN SANE Unavailable [phone] Len Adhikari MD Unavailable Reanna Smith RD Unavailable Jamshid Granados MD Unavailable [phone] Katiana Read MD Unavailable [phone] Jovita Daly MD Unavailable [phone] Alexander López MD Unamarcelina lable Jese Doyle MD Unavailable [phone] Roshni Nascimento RN Unavailable Unavailable Johana Groves [facility] Unavailable [phone] Kiet Swain MD Unavailable [phone] Winsome Pike APRN SPECIAL EVENTS MANAGER Unavailable [phone] Tori Hines [facility] Unavailable Miranda Queen [facility] Unavailable Unavailable Winsome Pike APRN SPECIAL EVENTS MANAGER Unavailable Marisel Armando MD Unavailable Marisel Armando MD Unavailable Inderjit Ugalde MD Unavailable [phone] Wesley Barrett MD Unavailable [phone] Charles Jaramillo PA-C Unavailable [phone] Miranda Queen [facility] Unavailable Unavailable Leeann Rinaldi MD Unavailable Miranda Queen [facility] Unavailable Unavailable Dyan Fuentes MD Primary Care Provider [phone] Dyan Fuentes MD Unavailable [phone] Katiana Read MD Unavailable [phone] Meme Singleton PhD Unavailable [phone] Deena Garza APRN SPECIAL EVENTS MANAGER Unavailable [phone] Mary Del Cid NP Unavailable + [phone] Elham Stack [facility] Unavailable [phone] Emerita Potter [facility] Unavailable [phone] Mary Del Cid NP Unavailable + [phone] [...] Anxiety Personality disorder (H) Jacque Pagan PA-C [address] [place] [address] Referral ID Status Reason Start Date Expiration Date Visits Re quested Visits Authorized [id number] Closed 04/30/2020 04/30/2021 1 1 Question Answer [...] (Late st Contact Info) Description 04/30/2020 Telephone [facility] [address] [place] [address] [place] [address] [place] [address] Referral Social History Tobacco Use [...] encounter Miscellaneous Notes * Telephone Encounter - Rsohni Nascimento RN - 05/05/2020 7:57 AM CDT LM again for call back and sent my chart Roshni Nascimento RN * Telephone Encounter - Roshni Nascimento RN - 05/01/2020 8:21 AM CDT [...] appointment scheduled: No Where to send Orders: Termite Control Service Representative Okay to leave detailed message? Yes at Home number on file [phone] (home) Please call PT when Referral is ready Routing documented in this encounter Plan of Treatment Upcoming Encounters Date Type Department Care Team (Late st Contact Info) Description 08/18/2023 3:00 PM BED CONTROL SPECIALIST Office Visit [facility] [address] [place] [address] Katiana Read MD [address] [facility] [address] [place] [address] Scheduled Referrals Name Type Priority Associated Diagnoses [...] Out COVID-19 08/19/2020 08/19/2020 08/19/2020 4:40 PM BED CONTROL SPECIALIST Rule Out C-difficile 02/27/2021 02/27/2021 021 [...] documented as of this encounter Care Teams Monorail Charger Operator Relationship Specialty Start Date End Date Len Adhikari MD PCP - General Family Practice 11/08/16 05/09/22 [place] [address] [place] [address] PCP - General Family Medicine 05/18/22 Jovany Gonzalez MD [facility] [address] [facility] [address] [place], [place] [address] Orthopedics 02/15/17 Staci Woodward, RN [facility] [address] [place] [address] Nurse Practitioner Nurse Practitioner Psych/Mental Health 05/10/17 [place] [address] [facility] [address] [place], [place] [address] Assigned PCP 11/14/16 01/22/[address] [facility] [address] [place] [address] Window Shade Cloth Sewer Dietitian, Registered 07/25/19 [place] [address] [facility] [place] [place] [address] Assigned Musculoskeletal Provider 05/02/20 09/13/20 Katiana Read MD [address] [place] [address] Assigned Endocrinology Provider 05/02/20 08/01/21 Jovita Daly MD [address] [place] [address] Assigned Surgical Provider 05/02/20 10/04/20 Alexander López MD [address] [place] [address] 106 [place], [place] 33[address] Assigned Sleep Provider 05/02/20 11/15/20 Jese Doyle MD [address] [place] [address] Assigned Pulmonology Provider 05/02/20 04/11/21 Roshni Nascimento, RN Personal Advocate & Liaison (PAL) Family Medicine 08/18/20 Johana Groves, [facility] [address] [place], [place] [address] Pharmacist Pharmacist 08/28/20 11/26/20 Kiet Swain MD [address] [place], [place] [address] [place], [place] [address] Referring Physician Psychiatry 09/19/20 Winsome Pike APRN SPECIAL EVENTS MANAGER [address] [place] [address] 634904 Nurse Practitioner Psychiatry 09/19/20 Tori Hines, [facility] [address] [place] [address] [id number] Laborer Aquatic Life Laborer Aquatic Life - Clinical 09/19/20 [facility] [address] [place] [address] Pharmacist Pharmacist 11/12/20 Winsome Pike APRN SPECIAL EVENTS MANAGER [address] [place] [address] [id number] Assigned Behavioral Health Provider 01/04/21 07/02/22 Marisel Armando MD [address] [place] [address] 264085 Gastroenterology 02/05/21 Marisel Armando MD [address] [place] [address] Assigned Gastroenterology Provider 03/08/21 12/24/22 Inderjit Ugalde MD [address] [facility] [address] [place] [address] Assigned Surgical Provider 02/15/21 08/20/22 Wesley Barrett MD [address] [facility] 96 [place] [address] Assigned Neuroscience Provider 05/10/21 Charles Jaramillo PA-C [address] [address] Assigned Musculoskeletal Provider 04/26/21 10/15/22 Miranda Queen [facility] [address] [place] [address] Assigned MTM Pharmacist 12/05/21 03/26/22 [place] [address] [place] [address] Assigned PCP 01/23/22 05/14/22 Miranda Queen [facility] [address] [place] [address] Assigned MTM Pharmacist 04/07/22 05/14/22 [place] [address] [place] [address] Assigned PCP 05/15/22 Katiana Read MD [address] [facility] [address] [place] [address] Assigned Endocrinology Provider 06/19/22 [place] [address] [place] [address] Assigned Behavioral Health Provider 07/03/22 12/31/22 Deena Garza, MIGRANT LEADER SPECIAL EVENTS MANAGER [address] [place] [place] [address] Assigned Pain Medication Provider 07/19/22 10/29/22 [place] [address] [place] [address] Nurse Practitioner Nurse Practitioner 10/18/22 Elham Stack, [facility] [address] [place], [place] [address] Pharmacist Pharmacist 10/19/22 Emerita Potter, [facility] Clinic Money Room Teller Laborer Aquatic Life - Clinical 10/29/22 11/02/22 [place] [address] [place] [address] Assigned Pain Medication Provider 10/30/22 12/03/22 Michelle Guzman DPM, Podiatry/Foot and Ankle Surgery [address] [facility] [address] Assigned Musculoskeletal Provider 10/16/22 04/08/23 [place] [address] [place] [address] Assigned Pain Medication Provider 12/04/22 04/01/23 [place] [address] [address] [place] [place] [address] Nurse Practitioner Nurse Practitioner 01/17/23 01/17/23 Aubrey Jones MD [address] [place] [address] Cardiovascular Disease 03/28/23 Blanquita Morales Window Shade Cloth Sewer Diabetes Education 04/25/23 Aubrey Jones MD [address] [place] [address] Assigned Heart and Vascular Provider 05/07/23 documented as of this encounter
--- OUTSIDE RECORDS SUMMARY | 2023-08-03 12:56 | XMS_ITS | Encounter Summary ---
Author Name Unknown Organization [place] Address [address] [place] [address]. [place] [address] Care Team Providers Care Skiing Instructor Name Role Phone Len Adhikari MD Primary Care Provider Jovany Gonzalez MD Unavailable CrissyStaci jeong PASTE MIXER LIQUID Unavailable [phone] Len Adhikari MD Unavailable Reanna Smith RD Unavailable Jamshid Granados MD Unavailable Katiana Read MD Unavailable [phone] Jovita Daly MD Unavailable +[phone] Alexander López MD Unamarcelina lable Jese Doyle MD Unavailable [phone] Roshni Nascimento RN Unavailable Unavailable Johana Groves [facility] Unavailable Kiet Swain MD Unavailable [phone] Winsome Pike APRN PARCEL POST TRUCK DRIVER Unavailable [phone] [facility] Unavailable Miranda Queen [facility] Unavailable Unavailable Winsome Pike APRN PARCEL POST TRUCK DRIVER Unavailable Marisel Armando MD Unavailable Marisel Armando MD Unavailable Inderjit Ugalde MD Unavailable [phone] Wesley Barrett MD Unavailable +[phone] EllaCharles jimenez Michele GEIGER Unavailable +[phone] Miranda Queen [facility] Unavailable Unavailable Leaenn Rinaldi MD Unavailable Miranda Queen [facility] Unavailable Unavailable Dyan Fuentes MD Primary Care Provider [phone] Dyan Fuentes MD Unavailable [phone] Katiana Read MD Unavailable [phone] Meme Singleton PhD Unavailable [phone] Deena Garza APRN PARCEL POST TRUCK DRIVER Unavailable +[phone] Mary Del Cid NP Unavailable + [phone] Elham Stack [facility] Unavailable [phone] [facility] Unavailable [phone] Mary Del Cid NP Unavailable + [phone] [...] Team (Late st Contact Info) Description 07/12/2020 [facility] [address] [place] [phone] Katiana Read MD [address] [place] [address] Refill Request (x4) Social History Tobacco Use [...] Katiana Read MD - 07/17/2020 1:27 PM PLATFORM MILL SUPERVISOR Pt reports that she does not need medication at this time. FORM MILL SUPERVISOR * Telephone Encounter - Rachelle Benites CMA - 07/17/2020 7:39 AM PLATFORM MILL SUPERVISOR Zenobia, I currently don't need a refill for synthetic. I get 90 days of each med due to my insurance. Thanks, Kaila Hernandez FORM MILL SUPERVISOR * Telephone Encounter - Rachelle Benites CMA - 07/16/2020 4:46 PM PLATFORM MILL SUPERVISOR Message sent via [employer]. Zenobia Benites CMA [facility] FORM MILL SUPERVISOR * Telephone Encounter - Katiana Read MD - 07/16/2020 4:35 PM PLATFORM MILL SUPERVISOR dexcom Rx sent. Please check dose of synthorid with pt. FORM MILL SUPERVISOR * Telephone Encounter - Marisel Thompson RN - 07/16/2020 9:45 AM CST Basaglar Prescription approved per [facility] Refill Protocol. Levothyroxine Routing refill request to provider for review/approval because: Labs out of range: TSH TSH Date Value Ref Range Status 01/22/2020 0.13 (L) 0.40 - 4.00 mU/L Final Dexacom Routing refill request to provider for review/approval because: Drug not on the G refill protocol FORM MILL SUPERVISOR * Telephone Encounter - Marisel Thompson RN [...] had a positive test, please check TSH. FORM MILL SUPERVISOR documented in this encounter Plan of Treatment Upcoming Encounters Date Type Department Care Team (Late st Contact Info) Description 08/18/2023 3:00 PM PLATFORM MILL SUPERVISOR Office Visit [facility] [address] [facility] [address] [place] [address] Katiana Read MD [address] [place] [address] documented as of this encounter [...] Out COVID-19 08/19/2020 08/19/2020 08/19/2020 4:40 PM PLATFORM MILL SUPERVISOR Rule Out C-difficile 02/27/2021 02/27/2021 021 6:10 [...] documented as of this encounter Care Teams Skiing Instructor Relationship Specialty Start Date End Date Len Adhikari MD PCP - General Family Practice 11/08/16 05/09/22 [place] [address] [place] [address] PCP - General Family Medicine 05/18/22 Jovany Gonzalez MD [facility] 6600 [facility] 605 [place] [address] Orthopedics 02/15/17 Staci Woodward NP [place] [address] [place] [address] Nurse Practitioner Nurse Practitioner Psych/Mental Health 05/10/17 [place] [address] [facility] [place] [address] Assigned PCP 11/14/16 01/22/[address] [facility] [facility] [address] [place] [address] Cup Trimming Machine Operator Dietitian, Registered 07/25/[address] [place] [address] [facility] 300 [place] [address] Assigned Musculoskeletal Provider 05/02/20 09/13/20 Katiana Read MD [address] [place] [address] 200 [place] [address] Assigned Endocrinology Provider 05/02/20 08/01/21 Jovita Daly MD [address] [place] [address] Assigned Surgical Provider 05/02/20 10/04/20 Alexander López MD [address] [place] [address] 106 [place], [place] [address] Assigned Sleep Provider 05/02/20 11/15/20 Jese Doyle MD 909 [place] [address] Assigned Pulmonology Provider 05/02/20 04/11/21 Roshni Nascimento, RN Personal Advocate & Liaison (PAL) Family Medicine 08/18/20 [facility] 1440 [facility] [place], [place] [id number] Pharmacist Pharmacist 08/28/20 11/26/20 Kiet Swain MD [address] [place] [address] [phone] Referring Physician Psychiatry 09/19/20 Winsome Pike APRN PARCEL POST TRUCK DRIVER [address] [address] Nurse Practitioner Psychiatry 09/19/20 Tori Hines, [facility]0 [place] [address] Automatic Glove Former Automatic Glove Former - Clinical 09/19/20 Miranda Queen, [facility] [address] [place] [address] Pharmacist Pharmacist 11/12/20 Winsome Pike APRN PARCEL POST TRUCK DRIVER [address] [place] [address] Assigned Behavioral Health Provider 01/04/21 07/02/22 Marisel Armando MD [address] [place] [address] Gastroenterology 02/05/21 Marisel Armando MD [address] [place] [address] Assigned Gastroenterology Provider 03/08/21 12/24/22 Inderjit Ugalde MD [address] [facility] 300 [place] [address] Assigned Surgical Provider 02/15/21 08/20/22 Wesley Barrett MD 420 [facility] 96 [place], [place] [address] Assigned Neuroscience Provider 05/10/21 Charles Jaramillo PA-C [address] [address] Assigned Musculoskeletal Provider 04/26/21 10/15/22 Miranda Queen [facility] [address] [place] [address] Assigned MTM Pharmacist 12/05/21 03/26/22 [place] [address] [place] [address] Assigned PCP 01/23/22 05/14/22 Miranda Queen [facility] [address] [facility] [place] [address] Assigned MTM Pharmacist 04/07/22 05/14/22 [place] [address] [address] [place] [address] Assigned PCP 05/15/22 Katiana Read MD [address] [place] [address] 716250 Assigned Endocrinology Provider 06/19/22 [place] PhD [address] [place] [address] Assigned Behavioral Health Provider 07/03/22 12/31/22 Deena Garza APRN PARCEL POST TRUCK DRIVER [address] [place] 5[address] Assigned Pain Medication Provider 07/19/22 10/29/22 Mary Del Cid, RAFAEL [address] [place] [address] Nurse Practitioner Nurse Practitioner 10/18/22 Elham Stack, [facility] 3033 [place] [address] Pharmacist Pharmacist 10/19/22 Emerita Potter, [facility] Clinic Track Coach Automatic Glove Former - Clinical 10/29/22 11/02/22 [place] [address] [place] [address] Assigned Pain Medication Provider 10/30/22 12/03/22 Michelle Guzman DPM, Podiatry/Foot and Ankle Surgery [address] [place] [address] Assigned Musculoskeletal Provider 10/16/22 04/08/23 [place] [address] [place] [address] Assigned Pain Medication Provider 12/04/22 04/01/23 [place] [address] [address] [place] [address] Nurse Practitioner Nurse Practitioner 01/17/23 01/17/23 Aubrey Jones MD [address] [place] [address] Cardiovascular Disease 03/28/23 Blanquita Morales Cup Trimming Machine Operator Diabetes Education 04/25/23 Aubrey Jones MD [address] [place] [address] Assigned Heart and Vascular Provider 05/07/23 documented as of this encounter
--- OUTSIDE RECORDS SUMMARY | 2023-08-03 12:56 | XMS_ITS | Encounter Summary ---
Author Name Unknown Organization [place] Address [address] [place] [address]. [place] [address] Care Team Providers Care Complaint Investigations Officer Name Role Phone Len Adhikari MD Primary Care Provider Jovany Gonzalez MD Unavailable CrissyStaci jeong ANIMAL NURSE Unavailable [phone] Len Adhikari MD Unavailable Reanna Smith [address] Unavailable Jamshid Granados MD Unavailable Katiana Read MD Unavailable [phone] Jovita Daly MD Unavailable [phone] Alexander López MD Unamarcelina lable Jese Doyle MD Unavailable [phone] Roshni Nascimento RN Unavailable Unavailable Johana Grvoes [facility] Unavailable [phone] Kiet Swain MD Unavailable [phone] Winsome Pike APRN ELECTROMEDICAL EQUIPMENT TECHNICIAN Unavailable [phone] Tori Hines [facility] Unavailable Miranda Queen [facility] Unavailable Unavailable Winsome Pike APRN ELECTROMEDICAL EQUIPMENT TECHNICIAN Unavailable Marisel Armando MD Unavailable Marisel Armando MD Unavailable Inderjit Ugalde MD Unavailable [phone] Wesley Barrett MD Unavailable [phone] EllaCharles jimenez Michele GEIGER Unavailable +[phone] Miranda Queen [facility] Unavailable Unavailable Leeann Rinaldi MD Unavailable Miranda Queen [facility] Unavailable Unavailable Dyan Fuentes MD Primary Care Provider [phone] Dyan Fuentes MD Unavailable +[phone] Katiana Read MD Unavailable [phone] Meme Singleton PhD Unavailable [phone] Deena Garza APRN ELECTROMEDICAL EQUIPMENT TECHNICIAN Unavailable +[phone] Mary Del Cid NP Unavailable + [phone] Elham Stack [facility] Unavailable [phone] Emerita Potter [facility] Unavailable [phone] Mary Del Cid NP Unavailable + [...] Team (Late st Contact Info) Description 05/30/2020 [facility] [address] [place] [id number] [place] [address] [place] [address] MyChart Communication Social History Tobacco Use Types [...] COVID-19? No / Unsure 06/02/2020 12:45 PM STRUCTURES ASSEMBLER documented as of this encounter Plan of Treatment Upcoming Encounters Date Type Department Care Team (Late st Contact Info) Description 08/18/2023 3:00 PM STRUCTURES ASSEMBLER Office Visit [facility] [address] [facility] [address] [place] [address] Katiana Read MD [address] [place] [address] documented as of this encounter Visit Diagnoses Not on filedocumented in this encounter Additional Health Concerns Infection Onset Date Last Indicated Resolved Time Rule Out COVID-19 08/19/2020 08/19/2020 08/19/2020 4:40 PM STRUCTURES ASSEMBLER Rule Out C-difficile 02/27/2021 02/27/2021 021 [...] documented as of this encounter Care Teams Complaint Investigations Officer Relationship Specialty Start Date End Date Len Adhikari MD PCP - General Family Practice 11/08/16 05/09/22 [place] [address] [place] [address] PCP - General Family Medicine 05/18/22 Jovany Gonzalez MD [facility] 6600 [facility] 605 [place] [address] Orthopedics 02/15/17 Staci Woodward ANIMAL NURSE [facility] [address] [place] [address] Nurse Practitioner Nurse Practitioner Psych/Mental Health 05/10/17 [place] [address] [facility] [place] [address] Assigned PCP 11/14/16 01/22/[address] [facility] [address] [place] [address] Thread Dresser Dietitian, Registered 07/25/19 [place] [address] [facility] [address] [place] [address] Assigned Musculoskeletal Provider 05/02/20 09/13/20 Katiana Read MD [address] [place] [address] Assigned Endocrinology Provider 05/02/20 08/01/21 Jovita Daly MD [address] [place] [address] Assigned Surgical Provider 05/02/20 10/04/20 Alexander López MD [address] [facility] 106 [place] [address] Assigned Sleep Provider 05/02/20 11/15/20 Jese Doyle MD 909 [facility] [place], [place] 26[address] Assigned Pulmonology Provider 05/02/20 04/11/21 Roshni Nascimento RN Personal Advocate & Liaison (PAL) Family Medicine 08/18/20 Johana Groves [facility] [address] [place] [address] Pharmacist Pharmacist 08/28/20 11/26/20 Kiet Swain MD [address] [facility] [address] [place], [place] [address] Referring Physician Psychiatry 09/19/20 Winsome Pike, MANAGER HOUSEKEEPING ELECTROMEDICAL EQUIPMENT TECHNICIAN [address] [place] [address] Nurse Practitioner Psychiatry 09/19/20 Tori Hines [facility] 2450 [place], [place] [address] Contour Path Tape Mill Operator Contour Path Tape Mill Operator - Clinical 09/19/20 Miranda Queen, [facility] [address] [place] [address] Pharmacist Pharmacist 11/12/20 Winsome Pike APRN ELECTROMEDICAL EQUIPMENT TECHNICIAN [address] [place] [address] 787544 Assigned Behavioral Health Provider 01/04/21 07/02/22 Marisel Armando MD [address] [place] [address] 377575 Gastroenterology 02/05/21 Marisel Armando MD [address] [place] [address] 504975 Assigned Gastroenterology Provider 03/08/21 12/24/22 Inderjit Ugalde MD [address] [facility] 300 [place], [place] [address] Assigned Surgical Provider 02/15/21 08/20/22 Wesley Barrett MD 420 [facility] 96 [place], [place] [address] Assigned Neuroscience Provider 05/10/21 Charles Jaramillo PA-C [address] 1101[address] Assigned Musculoskeletal Provider 04/26/21 10/15/22 [facility] [address] [place] [address] Assigned MTM Pharmacist 12/05/21 03/26/22 [place] [address] [place] [address] Assigned PCP 01/23/22 05/14/22 Miranda Queen [facility] [address] [place] [address] Assigned MTM Pharmacist 04/07/22 05/14/22 [place] [address] [place] [address] Assigned PCP 05/15/22 Katiana Read MD [address] [place] [address] Assigned Endocrinology Provider 06/19/22 [place] PhD [address] [place] [address] Assigned Behavioral Health Provider 07/03/22 12/31/22 Deena Garza APRN ELECTROMEDICAL EQUIPMENT TECHNICIAN [address] [place] [address] Assigned Pain Medication Provider 07/19/22 10/29/22 Mary Del Cid, RAFAEL [address] [place] [address] Nurse Practitioner Nurse Practitioner 10/18/22 Elham Stack, [facility] 3033 [place] [address] Pharmacist Pharmacist 10/19/22 Emerita Potter, [facility] Clinic Agricultural Aircraft Pilot Contour Path Tape Mill Operator - Clinical 10/29/22 11/02/22 Mary Del Cid, RAFAEL [address] [place] [address] Assigned Pain Medication Provider 10/30/22 12/03/22 Michelle Guzman, ALDOM, Podiatry/Foot and Ankle Surgery [address] [place] [address] Assigned Musculoskeletal Provider 10/16/22 04/08/23 [place] [address] [place] [address] Assigned Pain Medication Provider 12/04/22 04/01/23 [place] [address] [place] [address] Nurse Practitioner Nurse Practitioner 01/17/23 01/17/23 Aubrey Jones MD [address] [place] [address] Cardiovascular Disease 03/28/23 Blanquita Morales Thread Dresser Diabetes Education 04/25/23 Aubrey Jones MD [address] [place] [address] Assigned Heart and Vascular Provider 05/07/23 documented as of this encounter
--- OUTSIDE RECORDS SUMMARY | 2023-08-03 12:56 | XMS_ITS | Encounter Summary ---
Author Name Unknown Organization [place] Address [address] [place] [address]. [place] [address] Care Team Providers Care Frozen Food Selector Name Role Phone Len Adhikari MD Primary Care Provider [phone] Jovany Gonzalez MD Unavailable [phone] CrissyStaci jeong HEEL SEATER Unavailable [phone] Len Adhikari MD Unavailable Reanna Smith [address] Unavailable Jamshid Granados MD Unavailable Katiana Read MD Unavailable [phone] Jovita Daly MD Unavailable [phone] Alexander López MD Unamarcelina lable Jese Doyle MD Unavailable [phone] Roshni Nascimento RN Unavailable Unavailable Johana Groves [facility] Unavailable Kiet Swain MD Unavailable [phone] Winsome Pike APRN FIRER TUNNEL KILN Unavailable [phone] Tori Hines [facility] Unavailable Miranda Queen [facility] Unavailable Unavailable Winsome Pike APRN FIRER TUNNEL KILN Unavailable Marisel Armando MD Unavailable Marisel Armando MD Unavailable Inderjit Ugalde MD Unavailable [phone] Wesley Barrett MD Unavailable [phone] EllaCharles Michele GEIGER Unavailable +[phone] Miranda uQeen [facility] Unavailable Unavailable Leeann Rinaldi MD Unavailable Miranda Queen [facility] Unavailable Unavailable Dyan Fuentes MD Primary Care Provider [phone] Dyan Fuentes MD Unavailable [phone] Katiana Read MD Unavailable [phone] Meme Singleton PhD Unavailable [phone] Deena Garza APRN FIRER TUNNEL KILN Unavailable +[phone] Mary Del Cid NP Unavailable [phone] Elham Stack [facility] Unavailable +[phone] Emerita Potter [facility] Unavailable [phone] Mary Del Cid NP Unavailable [phone] Michelle Guzman DPM, Podiatry /Foot and Ankle Surgery Unavailable Dyan Fuentes MD Unavailable [phone] Mary Del Cid NP Unavailable + [phone] Aubrey Jones MD Unavailable [phone] Blanquita Morales Unavailable Unavailable Aubrey Jones MD Unavailable [phone] Encounter Details Date Type Department Care Team (Late st Contact Info) Description 05/06/2020 [facility] [address] [address] Renetta Dsouza Social History Tobacco [...] st Contact Info) Description 08/18/2023 3:00 PM SELLING MANAGER Office Visit [facility] [address] [facility] [address] [place] [address] Katiana Read MD [address] [place] [address] documented as of this encounter Visit Diagnoses Not on filedocumented in this encounter Additional Health Concerns Infection Onset Date Last Indicated Resolved Time Rule Out COVID-19 08/19/2020 08/19/2020 08/19/2020 4:40 PM SELLING MANAGER Rule Out C-difficile 02/27/2021 02/27/2021 021 [...] documented as of this encounter Care Teams Frozen Food Selector Relationship Specialty Start Date End Date Len Adhikari MD PCP - General Family Practice 11/08/16 05/09/22 [place] [address] [place] [address] PCP - General Family Medicine 05/18/22 Jovany Gonzalez MD [facility] 6600 [facility] 605 [place], [place] 14[address] Orthopedics 02/15/17 Staci Woodward NP [facility] [address] [place], [place] [address] Nurse Practitioner Nurse Practitioner Psych/Mental Health 05/10/17 [place] [address] [place] [address] Assigned PCP 11/14/16 01/22/[address] [facility] [address] [place] [address] Tool And Die Designer Dietitian, Registered 07/25/19 [place] [address] [facility] 300 [place], [place] [address]17 Assigned Musculoskeletal Provider 05/02/20 09/13/20 Katiana Read MD [address] [facility] 200 [place], [place] [address] Assigned Endocrinology Provider 05/02/20 08/01/21 Jovita Daly MD [address] [place], [place] 216[address] Assigned Surgical Provider 05/02/20 10/04/20 Alexander López MD [address] [facility] 106 [place], [place] 2[address] Assigned Sleep Provider 05/02/20 11/15/20 Jese Doyle MD 909 [facility] [address] Assigned Pulmonology Provider 05/02/20 04/11/21 Roshni Nascimento, RN Personal Advocate & Liaison (PAL) Family Medicine 08/18/20 Johana Groves, [facility] [address] [facility] [address] [place], [place] [address] Pharmacist Pharmacist 08/28/20 11/26/20 Kiet Swain MD [address] [facility] [address] [place], [place] [address] Referring Physician Psychiatry 09/19/20 Winsome Pike APRN FIRER TUNNEL KILN [address] [place] [address] [phone] Nurse Practitioner Psychiatry 09/19/20 Tori Hines, [facility] 2450 [place] [address] Grinder Set Up Operator Thread Tool Grinder Set Up Operator Thread Tool - Clinical 09/19/20 Miranda Queen [facility] [address] [place] [address] Pharmacist Pharmacist 11/12/20 Winsome Pike APRN FIRER TUNNEL KILN [address] [place] [address] 882124 Assigned Behavioral Health Provider 01/04/21 07/02/22 Marisel Armando MD [address] [place] [address] [phone] Gastroenterology 02/05/21 Marisel Armando MD [address] [place] [address] 405525 Assigned Gastroenterology Provider 03/08/21 12/24/22 Inderjit Ugalde MD [address] [facility] 300 [place], [place] [address] Assigned Surgical Provider 02/15/21 08/20/22 Wesley Barrett MD 420 [facility] 96 [place], [place] 8[address] Assigned Neuroscience Provider 05/10/21 Charles Jaramillo PA-C [address] [facility] [address] [address] Assigned Musculoskeletal Provider 04/26/21 10/15/22 Miranda Queen [facility] [address] [place] [address] Assigned MTM Pharmacist 12/05/21 03/26/22 [place] [address] [place] [address] Assigned PCP 01/23/22 05/14/22 Miranda Queen [facility] [address] [place] [address] Assigned MTM Pharmacist 04/07/22 05/14/22 [place] [address] [place] [address] Assigned PCP 05/15/22 Katiana Read MD [address] [place] [address] Assigned Endocrinology Provider 06/19/22 [place] [address] [place] [address] Assigned Behavioral Health Provider 07/03/22 12/31/22 Deena Garza APRN FIRER TUNNEL KILN [address] [place] [address] Assigned Pain Medication Provider 07/19/22 10/29/22 Mary Del Cid, RAFAEL [address] [place] [address] Nurse Practitioner Nurse Practitioner 10/18/22 Elham Stack, [facility] 3033 [place] [address] Pharmacist Pharmacist 10/19/22 Emerita Potter, [facility] Clinic Information Tech Grinder Set Up Operator Thread Tool - Clinical 10/29/22 11/02/22 [place] [address] [place] [address] Assigned Pain Medication Provider 10/30/22 12/03/22 Michelle Guzman, DPM, Podiatry/Foot and Ankle Surgery [address] [place] [address] Assigned Musculoskeletal Provider 10/16/22 04/08/23 [place] [address] [place] [address] Assigned Pain Medication Provider 12/04/22 04/01/23 [place] [address] [place] [address] Nurse Practitioner Nurse Practitioner 01/17/23 01/17/23 Aubrey Jones MD [address] [place] [address] Cardiovascular Disease 03/28/23 Blanquita Morales Tool And Die Designer Diabetes Education 04/25/23 Aubrey Jones MD [address] [place] [address] Assigned Heart and Vascular Provider 05/07/23 documented as of this encounter
--- OUTSIDE RECORDS SUMMARY | 2023-08-03 12:56 | XMS_ITS | Encounter Summary ---
Author Name Unknown Organization [facility] Address [address] [place] [address]. [place] [address] Care Team Providers Care Scow Hand Name Role Phone Len Adhikari MD Primary Care Provider Jovany Gonzalez MD Unavailable CrissyStaci jeong INSTALLER [employer] FLOORING Unavailable [phone] Len Adhikari MD Unavailable +[phone] Unavailable Jamshid Granados MD Unavailable +[phone] Katiana Read MD Unavailable +[phone] Jovita Daly MD Unavailable +[phone] Alexander López MD Unamarcelina lable Jese Doyle MD Unavailable +[phone] Roshni Nascimento RN Unavailable Unavailable Johana Groves [facility] Unavailable Kiet Swain MD Unavailable [phone] Winsome Pike APRN HOT AIR FURNACE INSTALLER AND REPAIRER Unavailable +[phone] Tori Hines [facility] Unavailable Miranda Queen [facility] Unavailable Unavailable Winsome Pike APRN HOT AIR FURNACE INSTALLER AND REPAIRER Unavailable Marisel Armando MD Unavailable Marisel Armando MD Unavailable Inedrjit Ugalde MD Unavailable Wesley Barrett MD Unavailable +[phone] EllaCharles Michele GEIGER Unavailable +[phone] Miranda Queen [facility] Unavailable Unavailable Leeann Rinaldi MD Unavailable Miranda Queen [facility] Unavailable Unavailable Dyan Fuentes MD Primary Care Provider [phone] Dyan Fuentes MD Unavailable +[phone] Katiana Read MD Unavailable +[phone] Meme Singleton PhD Unavailable +[phone] Deena Garza APRN HOT AIR FURNACE INSTALLER AND REPAIRER Unavailable +[phone] Mary Del Cid NP Unavailable + [phone] Elham Stack [facility] Unavailable +[phone] Emerita Potter [facility] Unavailable [phone] Mary Del Cid NP Unavailable + [phone] Michelle Guzman DPM, Podiatry /Foot and Ankle Surgery Unavailable Dyan Fuentes MD Unavailable +[phone] Mary Del Cid NP Unavailable + [phone] Aubrey Jones MD Unavailable +[phone] Blanquita Morales Unavailable Unavailable Aubrey Jones MD Unavailable +[phone] Encounter Details Date Type Department Care Team (Late st Contact Info) Description 07/15/2020 [facility] [id number] [place] [phone] Roshni Nascimento, RN Social History Tobacco [...] COVID-19? No / Unsure 07/18/2020 2:55 PM NITROCELLULOSE OPERATOR documented as of this encounter Plan of Treatment Upcoming Encounters Date Type Department Care Team (Late st Contact Info) Description 08/18/2023 3:00 PM NITROCELLULOSE OPERATOR Office Visit [facility] [address] [facility] [address] [place] [address] Katiana Read MD [address] [place] [address] documented as of this encounter Visit Diagnoses Not on filedocumented in this encounter Additional Health Concerns Infection Onset Date Last Indicated Resolved Time Rule Out COVID-19 08/19/2020 08/19/2020 08/19/2020 4:40 PM NITROCELLULOSE OPERATOR Rule Out C-difficile 02/27/2021 02/27/2021 021 [...] documented as of this encounter Care Teams Scow Hand Relationship Specialty Start Date End Date Len Adhikari MD PCP - General Family Practice 11/08/16 05/09/22 [place] [address] [place] [address] PCP - General Family Medicine 05/18/22 Jovany Gonzalez MD [facility] [address] [facility] 605 [place], [place] [address] Orthopedics 02/15/17 Staci Woodward NP [facility] [address] [place], [place] [phone] Nurse Practitioner Nurse Practitioner Psych/Mental Health 05/10/17 [place] [address] [place] [address] Assigned PCP 11/14/16 01/22/[address] [facility] [address] [place], [place] [id number] Welding Machine Operator Gas Dietitian, Registered 07/25/19 [place] [address] [facility] [address] [place], [place] [id number] Assigned Musculoskeletal Provider 05/02/20 09/13/20 Katiana Read MD [address] [facility] 200 [place], [place] [address] Assigned Endocrinology Provider 05/02/20 08/01/21 Jovita Daly MD [address] [place], [place] 515517 Assigned Surgical Provider 05/02/20 10/04/20 Alexander López MD [address] [facility] 106 [place], [place] 14[address] Assigned Sleep Provider 05/02/20 11/15/20 Jese Doyle MD 9[address] [place], [place] 39[address] Assigned Pulmonology Provider 05/02/20 04/11/21 Roshni Nascimento, RN Personal Advocate & Liaison (PAL) Family Medicine 08/18/20 Johana Groves, [facility] [address] [place], [place] [id number] Pharmacist Pharmacist 08/28/20 11/26/20 Kiet Swain MD [address] [facility] [address] [place], [place] [address] Referring Physician Psychiatry 09/19/20 Winsome Pike APRN HOT AIR FURNACE INSTALLER AND REPAIRER [address] [place] [address] Nurse Practitioner Psychiatry 09/19/20 Tori Hines, [facility] 2450 [place], [place] [address] Analytics Analyst Analytics Analyst - Clinical 09/19/20 Miranda Queen [facility] [address] [place] [address] Pharmacist Pharmacist 11/12/20 Winsome Pike APRN HOT AIR FURNACE INSTALLER AND REPAIRER [address] [place] [address] 655464 Assigned Behavioral Health Provider 01/04/21 07/02/22 Marisel Armando MD [address] [place] [address] 153385 Gastroenterology 02/05/21 Marisel Armando MD [address] [place] [address]455 Assigned Gastroenterology Provider 03/08/21 12/24/22 Inderjit Ugalde MD [address] [address] Assigned Surgical Provider 02/15/21 08/20/22 Wesley Barrett MD [address] [place] [address] 96 [place], [place] 7[address]35 Assigned Neuroscience Provider 05/10/21 Charles Jaramillo PA-C [address] [facility] [address] 241285 Assigned Musculoskeletal Provider 04/26/21 10/15/22 Miranda Queen [facility] [address] [place] [address] Assigned MTM Pharmacist 12/05/21 03/26/22 [place] [address] [place] [address] Assigned PCP 01/23/22 05/14/22 Miranda Queen [facility] [address] [place] [address] Assigned MTM Pharmacist 04/07/22 05/14/22 [place] [address] [place] [address] Assigned PCP 05/15/22 Katiana Read MD [address] [address] Assigned Endocrinology Provider 06/19/22 [place] PhD [address] [place] [address]607 Assigned Behavioral Health Provider 07/03/22 12/31/22 Deena Garza APRN HOT AIR FURNACE INSTALLER AND REPAIRER [address] [place] [address] Assigned Pain Medication Provider 07/19/22 10/29/22 Mary Del Cid, RAFAEL [address] [place] [address] Nurse Practitioner Nurse Practitioner 10/18/22 Elham Stack, [facility] 3033 [place] [address] Pharmacist Pharmacist 10/19/22 Emerita Potter, [facility] Clinic Medical Unit Secretary Analytics Analyst - Clinical 10/29/22 11/02/22 [place] [address] [place] [address] Assigned Pain Medication Provider 10/30/22 12/03/22 Michelle Guzman, DPM, Podiatry/Foot and Ankle Surgery [address] [place] [address] Assigned Musculoskeletal Provider 10/16/22 04/08/23 [place] [address] [place] [address] Assigned Pain Medication Provider 12/04/22 04/01/23 [place] [address] [place] [address] Nurse Practitioner Nurse Practitioner 01/17/23 01/17/23 Aubrey Jones MD [address] [place] [address] Cardiovascular Disease 03/28/23 Blanquita Morales Welding Machine Operator Gas Diabetes Education 04/25/23 Aubrey Jones MD [address] [place] [address] Assigned Heart and Vascular Provider 05/07/23 documented as of this encounter
--- OUTSIDE RECORDS SUMMARY | 2023-08-03 12:56 | XMS_ITS | Encounter Summary ---
Author Name Unknown Organization [facility] Address [address] [place] [address]. [place] [address] Care Team Providers Care Head Pastry Chef Name Role Phone Len Adhikari MD Primary Care Provider Jovany Gonzalez MD Unavailable CrissyStaci jeong PRINCIPAL EXAMINER Unavailable [phone] Len Adhikari MD Unavailable [phone] Unavailable [phone] Jamshid Granados MD Unavailable Katiana Read MD Unavailable [phone] Jovita Daly MD Unavailable [phone] Alexander López MD Unamarcelina lable Jese Doyle MD Unavailable +[phone] Roshni Nascimento RN Unavailable Unavailable Johana Groves [facility] Unavailable [phone] Kiet Swain MD Unavailable [phone] Winsome Pike APRN BICYCLE TECHNICIAN Unavailable +[phone] Tori Hines [facility] Unavailable Miranda Queen [facility] Unavailable Unavailable Winsome Pike APRN BICYCLE TECHNICIAN Unavailable Marisel Armando MD Unavailable Marisel Armando MD Unavailable Inderjit Ugalde MD Unavailable Wesley Barrett MD Unavailable +[phone] EllaCharles jimenez Michele GEIGER Unavailable +[phone] Miranda Queen [facility] Unavailable Unavailable Leeann Rinaldi MD Unavailable Miranda Queen [facility] Unavailable Unavailable Dyan Fuentes MD Primary Care Provider [phone] Dyan Fuentes MD Unavailable +[phone] Katiana Read MD Unavailable +[phone] Meme Singleton PhD Unavailable [phone] Deena Garza APRN BICYCLE TECHNICIAN Unavailable +[phone] Mary Del Cid NP Unavailable + [phone] Elham Stack [facility] Unavailable [phone] Emerita Potter [facility] Unavailable [phone] Mary Del Cid NP Unavailable + [phone] Michelle Guzman DPM, Podiatry /Foot and Ankle Surgery Unavailable Dyan Fuentes MD Unavailable [phone] Mary Del Cid NP Unavailable + [phone] Aubrey Jones MD Unavailable [phone] Blanquita Morales Unavailable Unavailable Aubrey Jones MD Unavailable [phone] Encounter Details Date Type Department Care Team (Late st Contact Info) Description 03/12/2020 Telephone [facility] [address] [place] [phone] [place] [address] [place] [address] Social History Tobacco Use Types Packs/Day Years [...] RN, BSN * Telephone Encounter - Tasha Bailey - 03/12/2020 12:28 PM CDT Mick from [...] catheters 5x a day. Call Mick at [phone] ext: [phone] with questions or fax order to [phone] Tasha Bailey Patient Dry Roller documented in this encounter Plan of Treatment Upcoming Encounters Date Type Department Care Team (Late st Contact Info) Description 08/18/2023 3:00 PM MANAGEMENT COORDINATOR Office Visit [facility] [address] [place] [address] Katiana Read MD [address] [place] [address] documented as of this encounter Visit Diagnoses Not on filedocumented in this encounter Additional Health Concerns Infection Onset Date Last Indicated Resolved Time Rule Out COVID-19 08/19/2020 08/19/2020 08/19/2020 4:40 PM MANAGEMENT COORDINATOR Rule Out C-difficile 02/27/2021 02/27/2021 021 [...] documented as of this encounter Care Teams Head Pastry Chef Relationship Specialty Start Date End Date Len Adhikari MD PCP - General Family Practice 11/08/16 05/09/22 [place] [address] [place] [address] PCP - General Family Medicine 05/18/22 Jovany Gonzalez MD [facility] [address] [facility] [address] [place] [address] Orthopedics 02/15/17 Staci Woodward PRINCIPAL EXAMINER [facility] [address] [place] [address] Nurse Practitioner Nurse Practitioner Psych/Mental Health 05/10/17 [place] [address] [place] [address] Assigned PCP 11/14/16 01/22/[address] [facility] [address] [place] [address] Health Concierge Dietitian, Registered 07/25/19 [place] [address] [facility] [address] [place] [address] Assigned Musculoskeletal Provider 05/02/20 09/13/20 Katiana Read MD [address] [place] [address] Assigned Endocrinology Provider 05/02/20 08/01/21 Jovita Daly MD [address] [place] [address] Assigned Surgical Provider 05/02/20 10/04/20 Alexander López MD [address] [place] [address] Assigned Sleep Provider 05/02/20 11/15/20 Jese Doyle MD [address] [place] [address] Assigned Pulmonology Provider 05/02/20 04/11/21 Roshni Nascimento, RN Personal Advocate & Liaison (PAL) Family Medicine 08/18/20 Johana Groves [facility] [address] [place] [address] [address] [place], [place] [phone] Pharmacist Pharmacist 08/28/20 11/26/20 Kiet Swain MD [address] [place] [address]14 Referring Physician Psychiatry 09/19/20 Winsome Pike APRN BICYCLE TECHNICIAN [address] [place] [address]77154 Nurse Practitioner Psychiatry 09/19/20 Tori Hines, [facility] [address] [place] [phone] Adjunct Instructor Of Women'S Studies Adjunct Instructor Of Women'S Studies - Clinical 09/19/20 Miranda Queen [facility] [address] [place] [address] Pharmacist Pharmacist 11/12/20 Winsome Pike APRN BICYCLE TECHNICIAN [address] [place] [address] Assigned Behavioral Health Provider 01/04/21 07/02/22 Marisel Armando MD [address] [place] [address] Gastroenterology 02/05/21 Marisel Armando MD [address] [place] [address] Assigned Gastroenterology Provider 03/08/21 12/24/22 Inderjit Ugalde MD [address] [facility] [address] [place] [address] Assigned Surgical Provider 02/15/21 08/20/22 Wesley Barrett MD [address] [facility] 96 [place] [address] Assigned Neuroscience Provider 05/10/21 Charles Jaramillo PA-C 6545 [facility] 450 [place] [address] Assigned Musculoskeletal Provider 04/26/21 10/15/22 [facility] [address] [place] [address] Assigned MTM Pharmacist 12/05/21 03/26/22 [place] [address] [place] [address] Assigned PCP 01/23/22 05/14/22 Miranda Queen [facility] [address] [place] [address] Assigned MTM Pharmacist 04/07/22 05/14/22 [place] [address] [place] [address] Assigned PCP 05/15/22 Katiana Read MD [address] [place] [address] Assigned Endocrinology Provider 06/19/22 [place] [address] [place] [address] Assigned Behavioral Health Provider 07/03/22 12/31/22 Deena Garza APRN BICYCLE TECHNICIAN [address] [place] [address] Assigned Pain Medication Provider 07/19/22 10/29/22 Mary Del Cid, RAFAEL [address] [place] [address] Nurse Practitioner Nurse Practitioner 10/18/22 Elham Stack, [facility] [address] [facility] [place], [place] [address] Pharmacist Pharmacist 10/19/22 Emerita Potter, [facility] Clinic [employer] Adjunct Instructor Of Women'S Studies - Clinical 10/29/22 11/02/22 Mary Del Cid, RAFAEL [address] [place] [address] Assigned Pain Medication Provider 10/30/22 12/03/22 Michelle Guzman DPM, Podiatry/Foot and Ankle Surgery [address] [place] [address] Assigned Musculoskeletal Provider 10/16/22 04/08/23 [place] [address] [place] [address] Assigned Pain Medication Provider 12/04/22 04/01/23 [place] [address] [place] [address] Nurse Practitioner Nurse Practitioner 01/17/23 01/17/23 Aubrey Jones MD [address] [place] [address] Cardiovascular Disease 03/28/23 Blanquita Morales Health Concierge Diabetes Education 04/25/23 Aubrey Jones MD [address] [place] [address] Assigned Heart and Vascular Provider 05/07/23 documented as of this encounter
--- OUTSIDE RECORDS SUMMARY | 2023-08-03 12:56 | XMS_ITS | Encounter Summary ---
Author Name Unknown Organization [facility] Address [address] [place] [address]. [place] [address] Care Team Providers Care Marine Mammal Trainer Name Role Phone Len Adhikari MD Primary Care Provider Jovany Gonzalez MD Unavailable CrissyStaci jeong FIELD CONTACT PERSON Unavailable [phone] Len Adhikari MD Unavailable Reanna Smith [address] Unavailable Jamshid Granados MD Unavailable +[phone] Katiana Read MD Unavailable [phone] Jovita Daly MD Unavailable +[phone] Alexander López MD Unamarcelina lable Jese Doyle MD Unavailable +[phone] Roshni Nascimento RN Unavailable Unavailable Johana Groves [facility] Unavailable Kiet Swain MD Unavailable [phone] Winsome Pike APRN INTERMISSION COORDINATOR Unavailable [phone] Tori Hines [facility] Unavailable Miranda Queen [facility] Unavailable Unavailable Winsome Pike APRN INTERMISSION COORDINATOR Unavailable Marisel Armando MD Unavailable Marisel Armando MD Unavailable Inderjit Ugalde MD Unavailable [phone] Wesley Barrett MD Unavailable +[phone] EllaCharles Michele GEIGER Unavailable +[phone] Miranda Queen [facility] Unavailable Unavailable Leeann Rinaldi MD Unavailable Miranda Queen [facility] Unavailable Unavailable Dyan Fuentes MD Primary Care Provider [phone] Dyan Fuentes MD Unavailable +[phone] Katiana Read MD Unavailable +[phone] Meme Singleton PhD Unavailable [phone] Deena Garza APRN INTERMISSION COORDINATOR Unavailable +[phone] Mary Del Cid NP Unavailable + [phone] Elham Stack [facility] Unavailable +[phone] Emerita Potter [facility] Unavailable [phone] Mary Del Cid NP Unavailable + [phone] Michelle Guzman DPM, Podiatry /Foot and Ankle Surgery Unavailable Dyan Fuentes MD Unavailable [phone] Mary Del Cid NP Unavailable + [phone] Aubrey Jones MD Unavailable [phone] Blanquita Morales Unavailable Unavailable Aubrey Jones MD Unavailable [phone] Encounter Details Date Type Department Care Team (Late st Contact Info) Description 04/14/2020 [facility] [address] [phone] Renetta Dsouza Social History [...] st Contact Info) Description 08/18/2023 3:00 PM HOME CARE ADMINISTRATOR Office Visit [facility] [address] [facility] [address] [place] [address] Katiana Read MD [address] 200 [place], [place] [address] documented as of this encounter Visit Diagnoses Not on filedocumented in this encounter Additional Health Concerns Infection Onset Date Last Indicated Resolved Time Rule Out COVID-19 08/19/2020 08/19/2020 08/19/2020 4:40 PM HOME CARE ADMINISTRATOR Rule Out C-difficile 02/27/2021 02/27/2021 021 [...] documented as of this encounter Care Teams Marine Mammal Trainer Relationship Specialty Start Date End Date Len Adhikari MD PCP - General Family Practice 11/08/16 05/09/22 [place] [address] [place] [address] PCP - General Family Medicine 05/18/22 Jovany Gonzalez MD [facility] 6600 [facility] 605 [place], [place] 6[address] Orthopedics 02/15/17 Staci Woodward NP [place] [address] [place], [place] 2299[address] Nurse Practitioner Nurse Practitioner Psych/Mental Health 05/10/17 [place] [address] [place] [address] Assigned PCP 11/14/16 01/22/[address] [place] [address] [place] [address] Certified Nurses' Aide Dietitian, Registered 07/25/19 [place] [address] [facility] 300 [place], [place] 6[address] Assigned Musculoskeletal Provider 05/02/20 09/13/20 Katiana Read MD [address] [place] [address] 200 [place] [address] Assigned Endocrinology Provider 05/02/20 08/01/21 Jovita Daly MD [address] [place] [address] Assigned Surgical Provider 05/02/20 10/04/20 Alexander López MD 606 [facility] 106 [place], [place] 25[address] Assigned Sleep Provider 05/02/20 11/15/20 Jese Doyle MD 909 [place], [place] [address] Assigned Pulmonology Provider 05/02/20 04/11/21 Roshni Nascimento, RN Personal Advocate & Liaison (PAL) Family Medicine 08/18/20 [facility] [address] [facility] [address] [place], [place] [address] Pharmacist Pharmacist 08/28/20 11/26/20 Kiet Swain MD [facility] [place], [place] [address] Referring Physician Psychiatry 09/19/20 Winsome Pike, VIDHI INTERMISSION COORDINATOR [address] [place] [address] Nurse Practitioner Psychiatry 09/19/20 Tori Hines, [facility] [address]50 [place] [address] Manager Process Manager Process - Clinical 09/19/20 Miranda Queen [facility] [address] [place] [address] Pharmacist Pharmacist 11/12/20 Winsome Pike APRN INTERMISSION COORDINATOR [address] [address] Assigned Behavioral Health Provider 01/04/21 07/02/22 Marisel Armando MD [address] [place] [address] Gastroenterology 02/05/21 Marisel Armando MD [address] [place] [address] Assigned Gastroenterology Provider 03/08/21 12/24/22 Inderjit Ugalde MD [address] [facility] [place] 300 [place] [address] Assigned Surgical Provider 02/15/21 08/20/22 Wesley Barrett MD 420 [facility] 96 [place] [address] Assigned Neuroscience Provider 05/10/21 Charles Jaramillo PA-C 6545 [facility] [address] [address] Assigned Musculoskeletal Provider 04/26/21 10/15/22 Miranda Queen [facility] [address] [place] [address] Assigned MTM Pharmacist 12/05/21 03/26/22 [place] [address] [place] [address] Assigned PCP 01/23/22 05/14/22 Miranda Queen [facility] [address] [place] [address] Assigned MTM Pharmacist 04/07/22 05/14/22 [place] [address] [place] [address] Assigned PCP 05/15/22 Katiana Read MD [address] [place] [address] Assigned Endocrinology Provider 06/19/22 [place] [address] [place] [address] [place] [address]327 Assigned Behavioral Health Provider 07/03/22 12/31/22 Deena Garza, MANAGER TRANSPLANT INTERMISSION COORDINATOR [address] [place] [address] Assigned Pain Medication Provider 07/19/22 10/29/22 Mary Del Cid, RAFAEL [address] [place] [address] Nurse Practitioner Nurse Practitioner 10/18/22 Elham Stack, [facility] 3033 [place] [address] Pharmacist Pharmacist 10/19/22 Emerita Potter, [facility] Clinic Shook Splicer Manager Process - Clinical 10/29/22 11/02/22 [place] [address] [place] [address] Assigned Pain Medication Provider 10/30/22 12/03/22 Michelle Guzman DPM, Podiatry/Foot and Ankle Surgery [address] [place] [address] Assigned Musculoskeletal Provider 10/16/22 04/08/23 [place] [address] [place] [address] Assigned Pain Medication Provider 12/04/22 04/01/23 [place] [address] [place] [address] Nurse Practitioner Nurse Practitioner 01/17/23 01/17/23 Aubrey Jones MD [address] [place] [address] Cardiovascular Disease 03/28/23 Blanquita Morales Certified Nurses' Aide Diabetes Education 04/25/23 Aubrey Jones MD [address] [place] [address] Assigned Heart and Vascular Provider 05/07/23 documented as of this encounter
--- OUTSIDE RECORDS SUMMARY | 2023-08-03 12:56 | XMS_ITS | Encounter Summary ---
Author Name Unknown Organization [place] Address [address] [place] [address]. [place] [address] Care Team Providers Care Network Services Project Manager Name Role Phone Len Adhikari MD Primary Care Provider Jovany Gonzalez MD Unavailable CrissyStaci jeong CHIEF GREEN OFFICER Unavailable [phone] Len Adhikari MD Unavailable Reanna Smith RD Unavailable Jamshid Granados MD Unavailable +[phone] Katiana Read MD Unavailable +[phone] Jovita Daly MD Unavailable +[phone] Alexander López MD Unamarcelina lable Jese Doyle MD Unavailable +[phone] Roshni Nascimento RN Unavailable Unavailable Johana Groves [facility] Unavailable +[phone] Kiet Swain MD Unavailable [phone] Winsome Pike APRN PIPE CHANGER Unavailable +[phone] Tori Hines [facility] Unavailable Miranda Queen [facility] Unavailable Unavailable Winsome Pike APRN PIPE CHANGER Unavailable Marisel Armando MD Unavailable Marisel Armando MD Unavailable Inderjit Ugalde MD Unavailable [phone] Wesley Barrett MD Unavailable +[phone] EllaCharles jimenez Michele GEIGER Unavailable +[phone] Miranda Queen [facility] Unavailable Unavailable Leeann Rinaldi MD Unavailable Miranda Queen [facility] Unavailable Unavailable Dyan Fuentes MD Primary Care Provider [phone] Dyan Funetes MD Unavailable [phone] Katiana Read MD Unavailable [phone] Meme Singleton PhD Unavailable +[phone] Deena Garza APRN PIPE CHANGER Unavailable +[phone] Mary Del Cid NP Unavailable + [phone] Elham Stack [facility] Unavailable Emerita Potter [facility] Unavailable +[phone] Mary Del Cid NP Unavailable +[phone] [...] Team (Late st Contact Info) Description 02/27/2020 [facility] [address] [facility] [address] [place] [phone] Katiana Read MD [address] [place] [address] Medication Refill (synthroid) Social History Tobacco Use [...] 03/04/2020 12:37 PM CDT Message sent via Zeter[employer]. PATRICK Chu [facility] Kiarra/Jeff[place] * Telephone Encounter - Katiana Read MD - 03/04/2020 11:31 AM CDT [...] st Contact Info) Description 08/18/2023 3:00 PM TONGUE LINING STITCHER Office Visit [facility] [address] [facility] [address] [place] [address] Katiana Read MD [address] [place] [address] documented as of this encounter Visit Diagnoses Diagnosis Postablative hypothyroidism Other postablative hypothyroidism documented in this encounter Additional Health Concerns Infection Onset Date Last Indicated Resolved Time Rule Out COVID-19 08/19/2020 08/19/2020 08/19/2020 4:40 PM TONGUE LINING STITCHER Rule Out C-difficile 02/27/2021 02/27/2021 021 6:10 [...] as of this encounter Care Teams Network Services Project Manager Relationship Specialty Start Date End Date Len Adhikari MD PCP - General Family Practice 11/08/16 05/09/22 [place] [address] [place] [address] PCP - General Family Medicine 05/18/22 Jovany Gonzalez MD [facility] [address] [facility] 605 [place] [address] Orthopedics 02/15/17 Staci Woodward NP [place] [address] [place] [address] Nurse Practitioner Nurse Practitioner Psych/Mental Health 05/10/17 [place] [address] [facility] [place] [address] Assigned PCP 11/14/16 01/22/[address] [address] Manager Leadership Development Dietitian, Registered 07/25/19 [place] [address] [address] Assigned Musculoskeletal Provider 05/02/20 09/13/20 Katiana Read MD [address] [facility] 200 [place] [address] Assigned Endocrinology Provider 05/02/20 08/01/21 Jovita Daly MD [address] [place] [address] Assigned Surgical Provider 05/02/20 10/04/20 Alexander López MD [address] [facility] 106 [place], [place] [address] Assigned Sleep Provider 05/02/20 11/15/20 Jese Doyle MD 909 [place], [place] [address] Assigned Pulmonology Provider 05/02/20 04/11/21 Roshni Nascimento, RN Personal Advocate & Liaison (PAL) Family Medicine 08/18/20 Johana Groves, [facility] [address] [facility] [address] [place], [place] [id number] Pharmacist Pharmacist 08/28/20 11/26/20 Kiet Swain MD [address] [place] [address] NG[address] [place], [place] [address] Referring Physician Psychiatry 09/19/20 Winsome Pike, LAUNDRY OPERATOR WASH ROOM PIPE CHANGER [address] [place] [address] Nurse Practitioner Psychiatry 09/19/20 Tori Hines, [facility]0 [place], [place] [id number] Salvage Repairer Salvage Repairer - Clinical 09/19/20 Miranda Queen [facility] [address] [place] [address] Pharmacist Pharmacist 11/12/20 Winsome Pike APRN CNP [address] [address] Assigned Behavioral Health Provider 01/04/21 07/02/22 Marisel Armando MD [address] [place] [address] Gastroenterology 02/05/21 Marisel Armando MD [address] [place] [address] 493885 Assigned Gastroenterology Provider 03/08/21 12/24/22 Inderjit Ugalde MD [address] [facility] 300 [place] [address] Assigned Surgical Provider 02/15/21 08/20/22 Wesley Barrett MD [address] [place] [address] 96 [place] [address] Assigned Neuroscience Provider 05/10/21 Charles Jaramillo PA-C [address] [address] Assigned Musculoskeletal Provider 04/26/21 10/15/22 Miranda Queen [facility] [address] [place] [address] Assigned MTM Pharmacist 12/05/21 03/26/22 [place] [address] [place] [address] Assigned PCP 01/23/22 05/14/22 Miranda Queen [facility] [address] [place] [address] Assigned MTM Pharmacist 04/07/22 05/14/22 [place] [address] [place] [address] Assigned PCP 05/15/22 Katiana Read MD [address] [address] Assigned Endocrinology Provider 06/19/22 [place] [address] [place] [address] Assigned Behavioral Health Provider 07/03/22 12/31/22 Deena Garza APRN PIPE CHANGER [address] [place] 68[address] Assigned Pain Medication Provider 07/19/22 10/29/22 Mary Del Cid, RAFAEL [address] [place] [address] Nurse Practitioner Nurse Practitioner 10/18/22 Elham Stack, [facility] 30[address] [place] [address] Pharmacist Pharmacist 10/19/22 Emerita Potter, [facility] Clinic Bridge Painter Helper Salvage Repairer - Clinical 10/29/22 11/02/22 Mary Del Cid, RAFAEL [address] [place] [address] Assigned Pain Medication Provider 10/30/22 12/03/22 Michelle Guzman, DPM, Podiatry/Foot and Ankle Surgery [address] [place] [place] [address] Assigned Musculoskeletal Provider 10/16/22 04/08/23 [place] [address] [place] [address] Assigned Pain Medication Provider 12/04/22 04/01/23 [place] [address] [place] [place] [address] Nurse Practitioner Nurse Practitioner 01/17/23 01/17/23 Aubrey Jones MD [address] [place] [address] Cardiovascular Disease 03/28/23 Blanquita Morales Manager Leadership Development Diabetes Education 04/25/23 Aubrey Jones MD [address] [place] [address] Assigned Heart and Vascular Provider 05/07/23 documented as of this encounter
--- OUTSIDE RECORDS SUMMARY | 2023-08-03 12:56 | XMS_ITS | Encounter Summary ---
Author Name Unknown Organization [place] Address [address] [place] [address]. [place] [address] Care Team Providers Care Um Rn Name Role Phone Len Adhikari MD Primary Care Provider Jovany Gonzalez MD Unavailable [phone] CrissyStaci jeong [facility] Unavailable [phone] Len Adhikari MD Unavailable Reanna Smith [address] Unavailable Jamshid Granados MD Unavailable Katiana Read MD Unavailable +[phone] Jovita Daly MD Unavailable [phone] Alexander López MD Unamarcelina lable Jese Doyle MD Unavailable [phone] Roshni Nascimento RN Unavailable Unavailable Johana Groves [facility] Unavailable Kiet Swain MD Unavailable [phone] Winsome Pike APRN LEAD PL SQL DEVELOPER Unavailable +[phone] Tori Hines [facility] Unavailable Miranda Queen [facility] Unavailable Unavailable Winsome Pike APRN LEAD PL SQL DEVELOPER Unavailable Marisel Armando MD Unavailable Marisel Armando MD Unavailable Inderjit Ugalde MD Unavailable [phone] Wesley Barrett MD Unavailable +[phone] EllaCharles jimenez Michele GEIGER Unavailable +[phone] Miranda Queen [facility] Unavailable Unavailable Leeann Rinaldi MD Unavailable Miranda Queen [facility] Unavailable Unavailable Dyan Fuentes MD Primary Care Provider [phone] Dyan Fuentes MD Unavailable [phone] Katiana Read MD Unavailable [phone] Meme Singleton PhD Unavailable [phone] Deena Garza APRN LEAD [address] SQL DEVELOPER Unavailable +[phone] Mary Del Cid NP Unavailable + [phone] Elham Stack [facility] Unavailable [phone] Emerita Potter [facility] Unavailable [phone] Mary Del Cid NP Unavailable + [phone] Michelle Guzman DPM, Podiatry /Foot and Ankle Surgery Unavailable Dyan Fuentes MD Unavailable [phone] Mary Del Cid NP Unavailable [phone] Aubrey Jones MD Unavailable [phone] Blanquita Morales Unavailable Unavailable Aubrey Jones MD Unavailable [phone] Encounter Details Date Type Department Care Team (Late st Contact Info) Description 05/14/2020 [facility] [place] [place] [facility] [address] [address] [place] [address] [place] [address] Social History Tobacco Use Types Packs/Day Years [...] st Contact Info) Description 08/18/2023 3:00 PM ROLLING MACHINE 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 [address] [facility] [address] [place] [address] Katiana Read MD [address] [address] [place] [address] documented as of this encounter Visit Diagnoses Not on filedocumented in this encounter Additional Health Concerns Infection Onset Date Last Indicated Resolved Time Rule Out COVID-19 08/19/2020 08/19/2020 08/19/2020 4:40 PM ROLLING MACHINE OPERATOR AUTOMATIC Rule Out C-difficile 02/27/2021 02/27/2021 021 6:10 [...] documented as of this encounter Care Teams Um Rn Relationship Specialty Start Date End Date Len Adhikari MD PCP - General Family Practice 11/08/16 05/09/22 [place] [address] [place] [address] PCP - General Family Medicine 05/18/22 Jovany Gonzalez MD [facility] 6600 [facility] 605 [place] [address] Orthopedics 02/15/17 Staci Woodawrd [facility] [place] [address] [place] [address] Nurse Practitioner Nurse Practitioner Psych/Mental Health 05/10/17 [place] [address] [facility] [place] [address] Assigned PCP 11/14/16 01/22/[address] [place] [address] [place] [address] Glassware Verifier Dietitian, Registered 07/25/19 [place] [address] [facility] [address] [place], [place] [address] Assigned Musculoskeletal Provider 05/02/20 09/13/20 Katiana Read MD [address] [place] [address] Assigned Endocrinology Provider 05/02/20 08/01/21 Jovita Daly MD [address] [place], [place] [address] Assigned Surgical Provider 05/02/20 10/04/20 Alexander López MD [address] [place] [address] Assigned Sleep Provider 05/02/20 11/15/20 Jese Doyle MD 909 [place] [address] Assigned Pulmonology Provider 05/02/20 04/11/21 Roshni Nascimento RN Personal Advocate & Liaison (PAL) Family Medicine 08/18/20 [facility] [facility] [address] [place], [place] [id number] Pharmacist Pharmacist 08/28/20 11/26/20 Kiet Swain MD [address] [facility] [place], [place] [address] Referring Physician Psychiatry 09/19/[address] Winsome Pike [address]N LEAD [address] SQL DEVELOPER [address] [address] Nurse Practitioner Psychiatry 09/19/20 Tori Hines [facility] 2450 [place], [place] [address] Scale Manager Scale Manager - Clinical 09/19/20 Miranda Queen [facility] [address] [place] [address] Pharmacist Pharmacist 11/12/[address]N LEAD [address] SQL DEVELOPER [facility] [id number] Assigned Behavioral Health Provider 01/04/21 07/02/22 Marisel Armando MD [address] [place] [id number] Gastroenterology 02/05/21 Marisel Armando MD [address] [place], [place] [address] Assigned Gastroenterology Provider 03/08/21 12/24/22 Inderjit Ugalde MD [address] [facility] 300 [place], [place] [address] Assigned Surgical Provider 02/15/21 08/20/22 Wesley Barrett MD [address] [facility] 96 [place], [place] [address] Assigned Neuroscience Provider 05/10/21 Charles Jaramillo PA-C [address] [address] Assigned Musculoskeletal Provider 04/26/21 10/15/22 [facility] [address] [place] [address] Assigned MTM Pharmacist 12/05/21 03/26/22 [place] [address] [place] [address] Assigned PCP 01/23/22 05/14/22 [facility] [address] [place] [address] Assigned MTM Pharmacist 04/07/22 05/14/22 [place] [address] [place] [address] Assigned PCP 05/15/22 Katiana Read MD [address] [place] [address] Assigned Endocrinology Provider 06/19/22 Meme Singleton[place] PhD [address] [place] [address] Assigned Behavioral Health Provider 07/03/22 12/31/[address]N [address] SQL DEVELOPER [address] [place] 48[address]97 Assigned Pain Medication Provider 07/19/22 10/29/22 Mary Del Cid, RAFAEL [address] [place] [address] Nurse Practitioner Nurse Practitioner 10/18/22 Elham Stack, [facility] 3033 [place] [address] Pharmacist Pharmacist 10/19/22 Abbey Emerita M, [facility] Clinic Type Mapper Scale Manager - Clinical 10/29/22 11/02/22 [place] [address] [place] [address] Assigned Pain Medication Provider 10/30/22 12/03/22 Michelle Guzman, ERIC, Podiatry/Foot and Ankle Surgery [address] [place] [address] Assigned Musculoskeletal Provider 10/16/22 04/08/23 [place] [address] [place] [address] Assigned Pain Medication Provider 12/04/22 04/01/23 [place] [address] [address] [place] [address] Nurse Practitioner Nurse Practitioner 01/17/23 01/17/23 Aubrey Jones MD [address] [place] [address] Cardiovascular Disease 03/28/23 Blanquita Morales Glassware Verifier Diabetes Education 04/25/23 Aubrey Jones MD [address] [place] [address] Assigned Heart and Vascular Provider 05/07/23 documented as of this encounter
--- OUTSIDE RECORDS SUMMARY | 2023-08-03 12:56 | XMS_ITS | Encounter Summary ---
Author Name Unknown Organization [place] Address [address] [place] [address]. [place] [address] Care Team Providers Care Meteorological Observer Name Role Phone Len Adhikari MD Primary Care Provider Jovany Gonzalez MD Unavailable CrissyStaci jeong EVENT STAFF Unavailable [phone] Len Adhikari MD Unavailable [phone] Unavailable Jamshid Granados MD Unavailable [phone] Katiana Read MD Unavailable [phone] Jovita Daly MD Unavailable +[phone] Alexander López MD Unamarcelina lable Jese Doyle MD Unavailable [phone] Roshni Nascimento RN Unavailable Unavailable Johana Groves [facility] Unavailable Kiet Swain MD Unavailable [phone] Winsome Pike APRN PRESIDENT FINANCIAL INSTITUTION Unavailable +[phone] Tori Hines [facility] Unavailable Miranda Queen [facility] Unavailable Unavailable Winsome Pike APRN PRESIDENT FINANCIAL INSTITUTION Unavailable Marisel Armando MD Unavailable Marisel Armando MD Unavailable Inderjit Ugalde MD Unavailable Wesley Barrett MD Unavailable [phone] EllaCharles jimenez Michele GEIGER Unavailable +[phone] Miranda Queen [facility] Unavailable Unavailable Leeann Rinaldi MD Unavailable Miranda Queen [facility] Unavailable Unavailable Dyan Fuentes MD Primary Care Provider [phone] Dyan Fuentes MD Unavailable [phone] Katiana Read MD Unavailable [phone] Meme Singleton PhD Unavailable +[phone] Deena Garza APRN PRESIDENT FINANCIAL INSTITUTION Unavailable +[phone] Mary Del Cid NP Unavailable + [phone] Elham Stack [facility] Unavailable [phone] Emerita Potter [facility] Unavailable [phone] Mary Del Cid NP Unavailable + [phone] [...] Team (Late st Contact Info) Description 07/02/2020 [facility] [address] [place] [phone] [place] [address] [place] [address] MyChart Communication Social History Tobacco Use Types [...] COVID-19? No / Unsure 06/02/2020 12:45 PM SUPERVISOR PREPRESS documented as of this encounter Miscellaneous Notes [...] and call back or follow-up in clinic. RVISOR PREPRESS * Telephone Encounter - Henrique Ribera RN - 07/03/2020 7:24 AM CST Please see [employer] message and advise. Henrique Kirk RN, BSN RVISOR PREPRESS documented in this encounter Plan of Treatment Upcoming Encounters Date Type Department Care Team (Late st Contact Info) Description 08/18/2023 3:00 PM SUPERVISOR PREPRESS Office Visit [facility] [address] [place] [address] Katiana Read MD [address] [place] [address] documented as of this encounter Visit Diagnoses Diagnosis Diarrhea, unspecified type Recurrent Clostridium difficile diarrhea Intestinal infection due to clostridium difficile documented in this encounter Additional Health Concerns Infection Onset Date Last Indicated Resolved Time Rule Out COVID-19 08/19/2020 08/19/2020 08/19/2020 4:40 PM SUPERVISOR PREPRESS Rule Out C-difficile 02/27/2021 02/27/2021 021 6:10 [...] documented as of this encounter Care Teams Meteorological Observer Relationship Specialty Start Date End Date Len Adhikari MD PCP - General Family Practice 11/08/16 05/09/22 [place] [address] [address] [address] PCP - General Family Medicine 05/18/22 Jovany Gonzalez MD [facility] [address] [facility] [address] [place], [place] [address] Orthopedics 02/15/17 Staci Woodward NP [facility] [address] [place] [address] Nurse Practitioner Nurse Practitioner Psych/Mental Health 05/10/17 [place] [address] [place] [address] Assigned PCP 11/14/16 01/22/22 Reanna Smith, RD [facility] [address] [place] [address] Licensed Appraiser Dietitian, Registered 07/25/19 [place] [address] [facility] [address] [place], [place] [address] Assigned Musculoskeletal Provider 05/02/20 09/13/20 Katiana Read MD [address] [place], [place] [address] Assigned Endocrinology Provider 05/02/20 08/01/21 Jovita Daly MD [address] [place], [place] [address] Assigned Surgical Provider 05/02/20 10/04/20 Aelxander López MD [address] [place], [place] [address] Assigned Sleep Provider 05/02/20 11/15/20 Jese Doyle MD [address] [place] [address] 980905 Assigned Pulmonology Provider 05/02/20 04/11/21 Roshni Nasicmento, RN Personal Advocate & Liaison (PAL) Family Medicine 08/18/20 [facility] [address] [place] [phone] Pharmacist Pharmacist 08/28/20 11/26/20 Kiet Swain MD [address] [place] [address]234 Referring Physician Psychiatry 09/19/20 Winsome Pike APRN PRESIDENT FINANCIAL INSTITUTION [address] [place] [address] [id number] Nurse Practitioner Psychiatry 09/19/20 Tori Hines, [facility] [address] [place] [address] [id number] Burr Machine Operator Burr Machine Operator - Clinical 09/19/20 [facility] [address] [place] [address] Pharmacist Pharmacist 11/12/20 Winsome Pike APRN PRESIDENT FINANCIAL INSTITUTION [address] [place] [address] 460984 Assigned Behavioral Health Provider 01/04/21 07/02/22 Marisel Armando MD [address] [place] [address] 323615 Gastroenterology 02/05/21 Marisel Armando MD 909 [place] [address] Assigned Gastroenterology Provider 03/08/21 12/24/22 Inderjit Ugalde MD [address] [place] [address] Assigned Surgical Provider 02/15/21 08/20/22 Wesley Barrett MD 420 [facility] 96 [place] [address] Assigned Neuroscience Provider 05/10/21 Charles Jaramillo PA-C 6545 [facility] 450 [place] [address] Assigned Musculoskeletal Provider 04/26/21 10/15/22 Miranda Queen [facility] [address] [place] [address] Assigned MTM Pharmacist 12/05/21 03/26/22 [place] [address] [place] [address] Assigned PCP 01/23/22 05/14/22 Miranda Queen [facility] [address] [place] [address] Assigned MTM Pharmacist 04/07/22 05/14/22 [place] [address] [place] [address] Assigned PCP 05/15/22 Katiana Read MD [address] [place] [address] Assigned Endocrinology Provider 06/19/22 [place] [address] [place] [address] Assigned Behavioral Health Provider 07/03/22 12/31/22 Deena Garza APRN PRES[facility] FIN[facility]CIAL INSTITUTION [address] [place] [address] Assigned Pain Medication Provider 07/19/22 10/29/22 Mary Del Cid, RAFAEL [address] [place] [address] Nurse Practitioner Nurse Practitioner 10/18/22 Elham Stack, [facility] 3033 [place] [address] Pharmacist Pharmacist 10/19/22 Emerita Potter, [facility] Clinic Counter Stitcher Burr Machine Operator - Clinical 10/29/22 11/02/22 Mary Del Cid, RAFAEL [address] [place] [address] Assigned Pain Medication Provider 10/30/22 12/03/22 Michelle Guzman DPM, Podiatry/Foot and Ankle Surgery [address] [place] [address] Assigned Musculoskeletal Provider 10/16/22 04/08/23 [place] [address] [place] [address] Assigned Pain Medication Provider 12/04/22 04/01/23 [place] [address] [place] [address] Nurse Practitioner Nurse Practitioner 01/17/23 01/17/23 Aubrey Jones MD [address] [place] [address] Cardiovascular Disease 03/28/23 Blanquita Morales Licensed Appraiser Diabetes Education 04/25/23 Aubrey Jones MD [address] [place] [address] Assigned Heart and Vascular Provider 05/07/23 documented as of this encounter
--- OUTSIDE RECORDS SUMMARY | 2023-08-03 12:57 | XMS_ITS | Encounter Summary ---
Author Name Unknown Organization [facility] Address [address] [place] [address]. [place] [address] Care Team Providers Care Supervisor Slashing Department Name Role Phone Len Adhikari MD Primary Care Provider Jovany Gonzalez MD Unavailable CrissyStaci jeong WATER [employer] SEWER SYSTEMS SUPERINTENDENT Unavailable [phone] Len Adhikari MD Unavailable Reanna Smith RD Unavailable Jamshid Granados MD Unavailable Katiana Read MD Unavailable [phone] Jovita Daly MD Unavailable +[phone] Alexander López MD Unamarcelina lable Jese Doyle MD Unavailable +[phone] Roshni Nascimento RN Unavailable Unavailable Johana Groves [facility] Unavailable [phone] Kiet Swain MD Unavailable [phone] Winsome Pike APRN INSULATION ESTIMATOR Unavailable +[phone] Tori Hines [facility] Unavailable Miranda Queen [facility] Unavailable Unavailable Winsome Pike APRN INSULATION ESTIMATOR Unavailable Marisel Armando MD Unavailable Marisel Armando MD Unavailable Inderjit Ugalde MD Unavailable [phone] Wesley Barrett MD Unavailable +[phone] EllaCharles Michele GEIGER Unavailable +[phone] Miranda Queen [facility] Unavailable Unavailable Leeann Rinaldi MD Unavailable Miranda Queen [facility] Unavailable Unavailable Dyan Fuentes MD Primary Care Provider [phone] Dyan Fuentes MD Unavailable [phone] Katiana Read MD Unavailable [phone] Meme Singleton PhD Unavailable +[phone] Deena Garza APRN INSULATION ESTIMATOR Unavailable +[phone] Mary Del Cid NP Unavailable + [phone] Elham Stack [facility] Unavailable Emerita Potter [facility] Unavailable [phone] Mary Del Cid NP Unavailable + [phone] Michelle Guzman DPM, Podiatry /Foot and Ankle Surgery Unavailable Dyan Fuentes MD Unavailable +[phone] Mary Del Cid NP Unavailable [phone] Aubrey Jones MD Unavailable [phone] Blanquita Morales Unavailable Unavailable Aubrey Jones MD Unavailable +[phone] Encounter Details Date Type Department Care Team (Late st Contact Info) Description 01/24/2020 [facility] [address] [place] [address] Rachelle Benites CMA Social History [...] 01/31/2020 8:56 AM CDT Message sent via [employer]. Zenobia Benites CMA [facility] [place] documented in this encounter Plan of Treatment Upcoming Encounters Date Type Department Care Team (Late st Contact Info) Description 08/18/2023 3:00 PM HVAC SHEET METAL INSTALLER Office Visit [facility] [address] [place] [address] Katiana Read MD [address] [place] [address] documented as of this encounter Visit Diagnoses Not on filedocumented in this encounter Additional Health Concerns Infection Onset Date Last Indicated Resolved Time Rule Out COVID-19 08/19/2020 08/19/2020 08/19/2020 4:40 PM HVAC SHEET METAL INSTALLER Rule Out C-difficile 02/27/2021 02/27/2021 021 6:10 [...] as of this encounter Care Teams Supervisor Slashing Department Relationship Specialty Start Date End Date Len Adhikari MD PCP - General Family Practice 11/08/16 05/09/22 [place] [address] [place] [address] PCP - General Family Medicine 05/18/22 Jovany Gonzalez MD [facility] [address] [facility] [address] [place], [place] [address] Orthopedics 02/15/17 Staci Woodward, WATER AND SEWER SYSTEMS SUPERINTENDENT [place] [address] [place], [place] [address] Nurse Practitioner Nurse Practitioner Psych/Mental Health 05/10/17 [place] [address] [facility] [place] [address] Assigned PCP 11/14/16 01/22/[address] [facility] [address] [place] [address] Perfume Maker Dietitian, Registered 07/25/19 [place] [address] [facility] [address] [place] [address] Assigned Musculoskeletal Provider 05/02/20 09/13/20 Katiana Read MD [address] [place] [address] Assigned Endocrinology Provider 05/02/20 08/01/21 Jovita Daly MD [address] [place] [address] Assigned Surgical Provider 05/02/20 10/04/20 Alexander López MD [address] [place], [place] [address] Assigned Sleep Provider 05/02/20 11/15/20 Jese Doyle MD [address] [facility] [place] [place] [address] Assigned Pulmonology Provider 05/02/20 04/11/21 Roshni Nascimento, RN Personal Advocate & Liaison (PAL) Family Medicine 08/18/20 Johana Groves [facility] [place] [id number] Pharmacist Pharmacist 08/28/20 11/26/20 Kiet Swain MD [address] [facility] [address] [place], [place] [id number] Referring Physician Psychiatry 09/19/20 Winsome Pike APRN INSULATION ESTIMATOR [address] [place] [address] [phone] Nurse Practitioner Psychiatry 09/19/20 Tori Hines, [facility] [address] [place], [place] [phone] Lining Stitcher Lining Stitcher - Clinical 09/19/20 Miranda Queen [facility] [address] [place] [address] Pharmacist Pharmacist 11/12/20 Winsome Pike APRN INSULATION ESTIMATOR [address] [place] [address] [phone] Assigned Behavioral Health Provider 01/04/21 07/02/22 Marisel Armando MD [address] [place] [address] 553845 Gastroenterology 02/05/21 Marisel Armando MD [address] [place] [address] Assigned Gastroenterology Provider 03/08/21 12/24/22 Inderjit Ugalde MD [address] [facility] 300 [place] [address] Assigned Surgical Provider 02/15/21 08/20/22 Wesley Barrett MD [address] [place] [address] Assigned Neuroscience Provider 05/10/21 Charles Jaramillo PA-C [address] [facility] 450 [place] [address] Assigned Musculoskeletal Provider 04/26/21 10/15/22 Miranda Queen [facility] [address] [place] [address] Assigned MTM Pharmacist 12/05/21 03/26/22 [place] [address] [place] [address] Assigned PCP 01/23/22 05/14/22 Miranda Queen [facility] [address] [place] [address] Assigned MTM Pharmacist 04/07/22 05/14/22 [place] [address] [place] [address] Assigned PCP 05/15/22 Katiana Read MD [address] [place] [address] 200 [place] [address] Assigned Endocrinology Provider 06/19/22 Meme Singleton, PhD [address] [place] [address] Assigned Behavioral Health Provider 07/03/22 12/31/22 Deena Garza, WELDING MACHINE OPERATOR THERMIT INSULATION ESTIMATOR [address] [place] [place] [address] Assigned Pain Medication Provider 07/19/22 10/29/22 Mary Del Cid, RAFAEL [address] [place] [address] Nurse Practitioner Nurse Practitioner 10/18/22 Elham Stack, [facility] [address] [place] [address] Pharmacist Pharmacist 10/19/22 Emerita Potter, [facility] Clinic Sleep Manager Lining Stitcher - Clinical 10/29/22 11/02/22 [place] [address] [address] [place] [address] Assigned Pain Medication Provider 10/30/22 12/03/22 Michelle Guzman DPM, Podiatry/Foot and Ankle Surgery [address] [place] [address] Assigned Musculoskeletal Provider 10/16/22 04/08/23 [place] [address] [place] [address] Assigned Pain Medication Provider 12/04/22 04/01/23 [place] [address] [place] [address] Nurse Practitioner Nurse Practitioner 01/17/23 01/17/23 Aubrey Jones MD [address] [place] [address] Cardiovascular Disease 03/28/23 Blanquita Morales Perfume Maker Diabetes Education 04/25/23 Aubrey Jones MD [address] [place] [address] Assigned Heart and Vascular Provider 05/07/23 documented as of this encounter
--- OUTSIDE RECORDS SUMMARY | 2023-08-03 12:57 | XMS_ITS | Encounter Summary ---
Author Name Unknown Organization [place] Address [address] [place] [address]. [place] [address] Care Team Providers Care Business Education Teacher Name Role Phone Len Adhikari MD Primary Care Provider Jovany Gonzalez MD Unavailable CrissyStaci jeong CHEMICAL PREPARER Unavailable Len Adhikari MD Unavailable Reanna Smith RD Unavailable Jamshid Granados MD Unavailable Katiana Read MD Unavailable [phone] Jovita Daly MD Unavailable +[phone] Alexander López MD Unamarcelina lable Jese Doyle MD Unavailable +[phone] Roshni Nascimento RN Unavailable Unavailable Johana Groves [facility] Unavailable Kiet Swain MD Unavailable [phone] Winsome Pike APRN TALEND ETL DEVELOPER Unavailable +[phone] Tori Hines [facility] Unavailable Miranda Queen [facility] Unavailable Unavailable Winsome Pike APRN TALEND ETL DEVELOPER Unavailable Marisel Armando MD Unavailable Marisel Armando MD Unavailable Inderjit Ugalde MD Unavailable [phone] Wesley Barrett MD Unavailable +[phone] EllaCharles jimenez Michele GEIGER Unavailable +[phone] Miranda Queen [facility] Unavailable Unavailable Leeann Rinaldi MD Unavailable Miranda Queen [facility] Unavailable Unavailable Dyan Fuentes MD Primary Care Provider [phone] Dyan Fuentes MD Unavailable +[phone] Katiana Read MD Unavailable [phone] Meme Singleton PhD Unavailable [phone] Deena Garza APRN TALEND ETL DEVELOPER Unavailable +[phone] Mary Del Cid NP Unavailable + [phone] Elham Stack [facility] Unavailable [phone] Emerita Potter [facility] Unavailable [phone] Mary Del Cid NP Unavailable + [phone] Michelle Guzman DPM, Podiatry /Foot and Ankle Surgery Unavailable Dyan Fuentes MD Unavailable +[phone] Mary Del Cid NP Unavailable + [phone] Aubrey Jones MD Unavailable [phone] Blanquita Morales Unavailable Unavailable Aubrey Jones MD Unavailable [phone] Encounter Details Date Type Department Care Team (Late st Contact Info) Description 02/22/2020 [facility] [address] [address] Criselda Ma APRN TALEND ETL DEVELOPER Social History Tobacco Use Types Packs/Day Years [...] Upcoming Encounters Date Type Department Care Team ([facility] st Contact Info) Description 08/18/2023 3:00 PM IT TELECOM TECHNICIAN Office Visit [facility] [address] [place] [address] Katiana Read MD [address] [place] [address] 200 [place] [address] documented as of this encounter Visit Diagnoses Not on filedocumented in this encounter Additional Health Concerns Infection Onset Date Last Indicated Resolved Time Rule Out COVID-19 08/19/2020 08/19/2020 08/19/2020 4:40 PM IT TELECOM TECHNICIAN Rule Out C-difficile 02/27/2021 02/27/2021 021 [...] as of this encounter Care Teams Business Education Teacher Relationship Specialty Start Date End Date Len Adhikari MD PCP - General Family Practice 11/08/16 05/09/22 [place] [address] [place] [address] PCP - General Family Medicine 05/18/22 Jovany Gonzalez MD [facility] [address] [facility] 605 [place], [place] [id number] Orthopedics 02/15/[address] [facility] [address] [place], [place] [phone] Nurse Practitioner Nurse Practitioner Psych/Mental Health 05/10/17 [place] [address] [facility] [place] [address] Assigned PCP 11/14/16 01/22/[address] [facility] [address] [place], [place] [address] Head Resident Dietitian, Registered 07/25/19 [place] [address] [facility] [place], [place] [address] Assigned Musculoskeletal Provider 05/02/20 09/13/20 Katiana Read MD [address] [facility] 200 [place], [place] [address] Assigned Endocrinology Provider 05/02/20 08/01/21 Jovita Daly MD [address] [place], [place] [address] Assigned Surgical Provider 05/02/20 10/04/20 Alexander López MD [address] [facility] 106 [place], [place] [address] Assigned Sleep Provider 05/02/20 11/15/20 Jese Doyle MD 909 [place], [place] [address] Assigned Pulmonology Provider 05/02/20 04/11/21 Roshni Nascimento RN Personal Advocate & Liaison (PAL) Family Medicine 08/18/20 Johana Groves, [facility] [address] [facility] [address] [place], [place] [address] Pharmacist Pharmacist 08/28/20 11/26/20 Kiet Swain MD [address] [facility] [address] [place], [place] [address] Referring Physician Psychiatry 09/19/20 Winsome Pike APRN TALEND ETL DEVELOPER [address] [place] [address] Nurse Practitioner Psychiatry 09/19/20 Tori Hines, [facility] [address] [place], [place] [address] Private Duty Lpn Private Duty Lpn - Clinical 09/19/20 Miranda Queen [facility] [address] [place] [address] Pharmacist Pharmacist 11/12/20 Winsome Pike APRN TALEND ETL DEVELOPER [address] [place] [address]514 Assigned Behavioral Health Provider 01/04/21 07/02/22 Marisel Armando MD [address] [place] [address] 379765 Gastroenterology 02/05/21 Marisel Armando MD [address] [place] [address] 552545 Assigned Gastroenterology Provider 03/08/21 12/24/22 Inderjit Ugalde MD [address] [facility] 300 [place] [address] Assigned Surgical Provider 02/15/21 08/20/22 Wesley Barrett MD [address] [facility] 96 [place], [place] [address] Assigned Neuroscience Provider 05/10/21 Charles Jaramillo PA-C [address] 417[address] Assigned Musculoskeletal Provider 04/26/21 10/15/22 Miranda Queen [facility] [address] [place] [address] Assigned MTM Pharmacist 12/05/21 03/26/22 [place] [address] [place] [address] Assigned PCP 01/23/22 05/14/22 Miranda Queen [facility] [address] [place] [address] Assigned MTM Pharmacist 04/07/22 05/14/22 [place] [address] [place] [address] Assigned PCP 05/15/22 Katiana Read MD [address] [address] Assigned Endocrinology Provider 06/19/22 [place] [address] [place] [address] Assigned Behavioral Health Provider 07/03/22 12/31/22 Deena Garza APRN TALEND ETL DEVELOPER [address] [place] [address] Assigned Pain Medication Provider 07/19/22 10/29/22 Mary Del Cid, RAFAEL [address] [place] [address] Nurse Practitioner Nurse Practitioner 10/18/22 Elham Stack, [facility] 3033 [place] [address] Pharmacist Pharmacist 10/19/22 Emerita Potter, [facility] Clinic Reading Professor Private Duty Lpn - Clinical 10/29/22 11/02/22 [place] [address] [place] [address] Assigned Pain Medication Provider 10/30/22 12/03/22 Michelle Guzman, DPM, Podiatry/Foot and Ankle Surgery [address] [place] [address] Assigned Musculoskeletal Provider 10/16/22 04/08/23 [place] [address] [place] [address] Assigned Pain Medication Provider 12/04/22 04/01/23 [place] [address] [place] [address] Nurse Practitioner Nurse Practitioner 01/17/23 01/17/23 Aubrey Jones MD [address] [place] [address] Cardiovascular Disease 03/28/23 Blanquita Morales Head Resident Diabetes Education 04/25/23 Aubrey Jones MD [address] [place] [address] Assigned Heart and Vascular Provider 05/07/23 documented as of this encounter
--- OUTSIDE RECORDS SUMMARY | 2023-08-03 12:57 | XMS_ITS | Encounter Summary ---
Author Name Unknown Organization [place] Address [address] [place] [address]. [place] [address] Care Team Providers Care Filling Hauler Name Role Phone Len Adhikari MD Primary Care Provider Jovany Gonzalez MD Unavailable [phone] CrissyStaci jeong PROJECT CONTROLS SPECIALIST Unavailable [phone] Len Adhikari MD Unavailable Reanna Smith RD Unavailable Jamshid Granados MD Unavailable [phone] Katiana Read MD Unavailable [phone] Jovita Daly MD Unavailable +[phone] Alexander López MD Unamarcelina lable Jese Doyle MD Unavailable +[phone] Roshni Nascimento RN Unavailable Unavailable Johana Groves [facility] Unavailable Kiet Swain MD Unavailable [phone] Winsome Pike APRN APPLICATION SUPPORT TECHNICIAN Unavailable +[phone] Tori Hines [facility] Unavailable Miranda Queen [facility] Unavailable Unavailable Winsome Pike APRN APPLICATION SUPPORT TECHNICIAN Unavailable Marisel Armando MD Unavailable Marisel Armando MD Unavailable Inderjit Ugalde MD Unavailable [phone] Wesley Barrett MD Unavailable +[phone] EllaCharles jimenez Michele GEIGER Unavailable +[phone] Miranda Queen [facility] Unavailable Unavailable Leeann Rinaldi MD Unavailable Miranda Queen [facility] Unavailable Unavailable Dyan Fuentes MD Primary Care Provider [phone] Dyan Fuentes MD Unavailable +[phone] Katiana Read MD Unavailable [phone] Meme Singleton PhD Unavailable [phone] Deena Garza APRN APPLICATION SUPPORT TECHNICIAN Unavailable +[phone] Mary Del Cid NP Unavailable + [phone] Elham Stack [facility] Unavailable [phone] Emerita Potter [facility] Unavailable [phone] Mary Del Cid NP Unavailable + [phone] [...] Team (Late st Contact Info) Description 02/21/2020 [facility] [address] [place] [address] [place] [address] [place] [address] MyChart Communication (med request ) Social History [...] Contact Info) Description 08/18/2023 3:00 PM BENCH MOLDER APPRENTICE Office Visit [facility] [address] [facility] [address] [place] [address] Katiana Read MD [address] [place] [address] documented as of this encounter Visit Diagnoses Not on filedocumented in this encounter Additional Health Concerns Infection Onset Date Last Indicated Resolved Time Rule Out COVID-19 08/19/2020 08/19/2020 08/19/2020 4:40 PM BENCH MOLDER APPRENTICE Rule Out C-difficile 02/27/2021 02/27/2021 021 [...] documented as of this encounter Care Teams Filling Hauler Relationship Specialty Start Date End Date Len Adhikari MD PCP - General Family Practice 11/08/16 05/09/22 [place] [address] [place] [address] PCP - General Family Medicine 05/18/22 Jovany Gonzalez MD [facility] [address] [facility] 605 [place], [place] [address] Orthopedics 02/15/17 Staci Woodward, PROJECT CONTROLS SPECIALIST [facility] [address] [place], [place] [address] Nurse Practitioner Nurse Practitioner Psych/Mental Health 05/10/17 [place] [address] [place] [address] Assigned PCP 11/14/16 01/22/[address] [facility] [address] [place] [address] Emery Grinder Dietitian, Registered 07/25/19 [place] [address] [facility] [address] [place], [place] [address] Assigned Musculoskeletal Provider 05/02/20 09/13/20 Katiana Read MD [address] [place], [place] [address] Assigned Endocrinology Provider 05/02/20 08/01/21 Jovita Daly MD [address] [facility] [place] [address] Assigned Surgical Provider 05/02/20 10/04/20 Alexander López MD [address] [facility] 106 [place], [place] [address] Assigned Sleep Provider 05/02/20 11/15/20 Jese Doyle MD 909 [place], [place] [address] Assigned Pulmonology Provider 05/02/20 04/11/21 Roshni Nascimento RN Personal Advocate & Liaison (PAL) Family Medicine 08/18/20 Johana Groves, [facility] [address] [place] [phone] Pharmacist Pharmacist 08/28/20 11/26/20 Kiet Swain MD [address] [place], [place] [address] Referring Physician Psychiatry 09/19/20 Winsome Pike APRN APPLICATION SUPPORT TECHNICIAN [address] [place] [address] 913184 Nurse Practitioner Psychiatry 09/19/20 Tori Hines [facility] 2450 [place], [place] 3[address] Water Aerobics Instructor Water Aerobics Instructor - Clinical 09/19/20 Miranda Queen [facility] [address] [place] [address] Pharmacist Pharmacist 11/12/20 Winsome Pike APRN APPLICATION SUPPORT TECHNICIAN [address] [place] [address] 571514 Assigned Behavioral Health Provider 01/04/21 07/02/22 Marisel Armando MD [address] [place] [address] 111115 Gastroenterology 02/05/21 Marisel Armando MD [address] [place] [address] 380395 Assigned Gastroenterology Provider 03/08/21 12/24/22 Inderjit Ugalde MD [address] [facility] 300 [place], [place] [address] Assigned Surgical Provider 02/15/21 08/20/22 Wesley Barrett MD [address] [place] [address] 883315 Assigned Neuroscience Provider 05/10/21 Charles Jaramillo PA-C [address] 8068[address] Assigned Musculoskeletal Provider 04/26/21 10/15/22 [facility] [address] [place] [address] Assigned MTM Pharmacist 12/05/21 03/26/22 [place] [address] [place] [address] Assigned PCP 01/23/22 05/14/22 [facility] [address] [place] [address] Assigned MTM Pharmacist 04/07/22 05/14/22 [place] [address] [place] [address] Assigned PCP 05/15/22 Katiana Read MD [address] [place] [address] Assigned Endocrinology Provider 06/19/22 [place] [address] [place] [address] Assigned Behavioral Health Provider 07/03/22 12/31/22 Deena Garza, FOILING MACHINE ADJUSTER APPLICATION SUPPORT TECHNICIAN [address] [place] [address] Assigned Pain Medication Provider 07/19/22 10/29/22 Mary Del Cid, PROJECT CONTROLS SPECIALIST [address] [place] [address] Nurse Practitioner Nurse Practitioner 10/18/22 Elham Stack, [facility] 3033 [place] [address] Pharmacist Pharmacist 10/19/22 Emerita Potter, [facility] Clinic Network Mgr Water Aerobics Instructor - Clinical 10/29/22 11/02/22 [place] [address] [place] [address] Assigned Pain Medication Provider 10/30/22 12/03/22 Michelle Guzman, ERIC, Podiatry/Foot and Ankle Surgery [address] [place] [address] Assigned Musculoskeletal Provider 10/16/22 04/08/23 [place] [address] [place] [address] Assigned Pain Medication Provider 12/04/22 04/01/23 [place] [address] [place] [address] Nurse Practitioner Nurse Practitioner 01/17/23 01/17/23 Aubrey Jones MD [address] [place] [address] Cardiovascular Disease 03/28/23 Blanquita Morales Emery Grinder Diabetes Education 04/25/23 Aubrey Jones MD [address] [place] [address] Assigned Heart and Vascular Provider 05/07/23 documented as of this encounter
--- OUTSIDE RECORDS SUMMARY | 2023-08-03 12:57 | XMS_ITS | Encounter Summary ---
Author Name Unknown Organization [place] Address [address] [place] [address]. [place] [address] Care Team Providers Care Price Changer Name Role Phone Len Adhikari MD Primary Care Provider Jovany Gonzalez MD Unavailable CrissyStaci jeong INTERNATIONAL ACCOUNT MANAGER Unavailable [phone] Len Adhikari MD Unavailable Reanna Smith RD Unavailable Jamshid Granados MD Unavailable Katiana Read MD Unavailable [phone] Jovita Daly MD Unavailable +[phone] Alexander López MD Unamarcelina lable Jese Doyle MD Unavailable +[phone] Roshni Nascimento RN Unavailable Unavailable Johana Groves [facility] Unavailable [phone] Kiet Swain MD Unavailable [phone] Winsome Pike APRN ART CONSERVATOR Unavailable +[phone] Tori Hines [facility] Unavailable Miranda Queen [facility] Unavailable Unavailable Winsome Pike APRN ART CONSERVATOR Unavailable Marisel Armando MD Unavailable Marisel Armando MD Unavailable Inderjit Ugalde MD Unavailable [phone] Wesley Barrett MD Unavailable +[phone] EllaCharles Michele GEIGER Unavailable +[phone] Miranda Queen [facility] Unavailable Unavailable Leeann Rinaldi MD Unavailable Miranda Queen [facility] Unavailable Unavailable Dyan Fuentes MD Primary Care Provider [phone] Dyan Fuentes MD Unavailable +[phone] Katiana Read MD Unavailable [phone] Meme Singleton PhD Unavailable [phone] Deena Garza APRN ART CONSERVATOR Unavailable +[phone] Mary Del Cid NP Unavailable + [phone] Elham Stack [facility] Unavailable [phone] Emerita Potter [facility] Unavailable [phone] Mary Del Cid NP Unavailable + [phone] Michelle Guzman DPM, Podiatry /Foot and Ankle Surgery Unavailable Dyan Fuentes MD Unavailable [phone] Mary Del Cid NP Unavailable + [phone] Aubrey Jones MD Unavailable [phone] Blanquita Morales Unavailable Unavailable Aubrey Jones MD Unavailable +[phone] Encounter Details Date Type Department Care Team (Late st Contact Info) Description 02/21/2020 [facility] [address] [address] Roshni Nascimento, RN Social History [...] st Contact Info) Description 08/18/2023 3:00 PM CULTURE ROOM WORKER Office Visit [facility] [address] [facility] [address] [place] [address] Katiana Read MD [address] [place] [address] documented as of this encounter Visit Diagnoses Not on filedocumented in this encounter Additional Health Concerns Infection Onset Date Last Indicated Resolved Time Rule Out COVID-19 08/19/2020 08/19/2020 08/19/2020 4:40 PM CULTURE ROOM WORKER Rule Out C-difficile 02/27/2021 02/27/2021 021 6:10 [...] documented as of this encounter Care Teams Price Changer Relationship Specialty Start Date End Date Len Adhikari MD PCP - General Family Practice 11/08/16 05/09/22 [place] [address] [place] [address] PCP - General Family Medicine 05/18/22 Jovany Gonzalez MD [facility] [address] [facility] 605 [place], [place] [address] Orthopedics 02/15/17 Staci Woodward NP [facility] [address] [place], [place] [phone] Nurse Practitioner Nurse Practitioner Psych/Mental Health 05/10/17 [place] [address] [facility] [place] [address] Assigned PCP 11/14/16 01/22/[address] [facility] [address] [place], [place] [id number] Tearoom Host Dietitian, Registered 07/25/19 [place] [address] [facility] [address] [place], [place] [id number] Assigned Musculoskeletal Provider 05/02/20 09/13/20 Katiana Read MD [address] [facility] 200 [place], [place] [address] Assigned Endocrinology Provider 05/02/20 08/01/21 Jovita Daly MD [address] [place], [place] [phone] Assigned Surgical Provider 05/02/20 10/04/20 Alexander López MD [address] [facility] 106 [place], [place] [address] Assigned Sleep Provider 05/02/20 11/15/20 Jese Doyle MD 909 [place] [address] Assigned Pulmonology Provider 05/02/20 04/11/21 Roshni Nascimento, RN Personal Advocate & Liaison (PAL) Family Medicine 08/18/20 Johana Groves, [facility] [address] [place], [place] [phone] Pharmacist Pharmacist 08/28/20 11/26/20 Kiet Swain MD [address] [facility] [address] [place], [place] [address] Referring Physician Psychiatry 09/19/20 Winsome Pike APRN ART CONSERVATOR [address] [place] [address] 233554 Nurse Practitioner Psychiatry 09/19/20 Tori Hines, [facility] [address]50 [place], [place] 511834 Lip Reading Teacher Lip Reading Teacher - Clinical 09/19/20 Miranda Queen [facility] [address] [place] [address] Pharmacist Pharmacist 11/12/20 Winsome Pike APRN ART CONSERVATOR [address] [place] [address] 919334 Assigned Behavioral Health Provider 01/04/21 07/02/22 Marisel Armando MD [address] [place] [address] [phone] Gastroenterology 02/05/21 Marisel Armando MD [address] [place] [address] 416255 Assigned Gastroenterology Provider 03/08/21 12/24/22 Inderjit Ugalde MD [address] [address] Assigned Surgical Provider 02/15/21 08/20/22 Wesley Barrett MD [address] [place] [address] 96 [place], [place] 968425 Assigned Neuroscience Provider 05/10/21 Charles Jaramillo PA-C [address] [facility] [address] 151295 Assigned Musculoskeletal Provider 04/26/21 10/15/22 Miranda Queen [facility] [address] [place] [address] Assigned MTM Pharmacist 12/05/21 03/26/22 [place] [address] [place] [address] Assigned PCP 01/23/22 05/14/22 Miranda Queen [facility] [address] [place] [address] Assigned MTM Pharmacist 04/07/22 05/14/22 [place] [address] [place] [address] Assigned PCP 05/15/22 Katiana Read MD [address] [address] Assigned Endocrinology Provider 06/19/22 Meme Singleton, PhD [address] [place] 347[address] Assigned Behavioral Health Provider 07/03/22 12/31/22 Deena Garza APRN ART CONSERVATOR [address] [place] [address] Assigned Pain Medication Provider 07/19/22 10/29/22 Mary Del Cid, RAFAEL [address] [place] [address] Nurse Practitioner Nurse Practitioner 10/18/22 Elham Stack, [facility] 3033 [place] [address] Pharmacist Pharmacist 10/19/22 Emerita Potter, [facility] Clinic Windows Support Engineer Lip Reading Teacher - Clinical 10/29/22 11/02/22 [place] [address] [place] [address] Assigned Pain Medication Provider 10/30/22 12/03/22 Michelle Guzman, DPM, Podiatry/Foot and Ankle Surgery [address] [place] [address] Assigned Musculoskeletal Provider 10/16/22 04/08/23 [place] [address] [place] [address] Assigned Pain Medication Provider 12/04/22 04/01/23 [place] [address] [place] [address] Nurse Practitioner Nurse Practitioner 01/17/23 01/17/23 Aubrey Jones MD [address] [place] [address] Cardiovascular Disease 03/28/23 Blanquita Morales Tearoom Host Diabetes Education 04/25/23 Aubrey Jones MD [address] [place] [address] Assigned Heart and Vascular Provider 05/07/23 documented as of this encounter
--- OUTSIDE RECORDS SUMMARY | 2023-08-03 12:57 | XMS_ITS | Encounter Summary ---
Author Name Unknown Organization [place] Address [address] [place] [address]. [place] [address] Care Team Providers Care 911 Telecommunicator Name Role Phone Len Adhikari MD Primary Care Provider Jovany Gonzalez MD Unavailable CrissyStaci jeong THREAD SPINNER Unavailable [phone] Len Adhikari MD Unavailable [phone] Unavailable [phone] Jamshid Granados MD Unavailable Katiana Read MD Unavailable [phone] Jovita Daly MD Unavailable [phone] Alexander López MD Unamarcelina lable Jese Doyle MD Unavailable [phone] Roshni Nascimento RN Unavailable Unavailable Johana Groves [facility] Unavailable [phone] Kiet Swain MD Unavailable [phone] Winsome Pike APRN WELDER PLASMA ARC Unavailable [phone] Tori Hines [facility] Unavailable Miranda Queen [facility] Unavailable Unavailable Winsome Pike APRN WELDER PLASMA ARC Unavailable Marisel Armando MD Unavailable Marisel Armando MD Unavailable Inderjit Ugalde MD Unavailable [phone] Wesley Barrett MD Unavailable +[phone] EllaCharles jimenez Michele GEIGER Unavailable [phone] Miranda Queen [facility] Unavailable Unavailable Leeann Rinaldi MD Unavailable Miranda Queen [facility] Unavailable Unavailable Dyan Fuentes MD Primary Care Provider [phone] Dyan Fuentes MD Unavailable [phone] Katiana Read MD Unavailable [phone] Meme Singleton PhD Unavailable [phone] Deena Garza APRN WELDER PLASMA ARC Unavailable +[phone] Mary Del Cid NP Unavailable + [phone] Elham Stack [facility] Unavailable [phone] Emerita Potter [facility] Unavailable +[phone] Mary Del Cid NP Unavailable + [phone] [...] Team (Late st Contact Info) Description 02/21/2020 [facility] [address] [place] [phone] [place] [address] [place] [address] Medication Refill Social History Tobacco Use Types [...] for her and usually do not manage [facility] with this med. Are they going to see psychiatry some time soon? * Telephone Encounter - Roshni Nascimento RN - 02/22/2020 8:09 AM CDT Do you fill this for pt? No showing on SUPERVISOR COLOR PASTE MIXING either Roshni Nascimento RN documented in this encounter Plan of Treatment Upcoming Encounters Date Type Department Care Team (Late st Contact Info) Description 08/18/2023 3:00 PM PRODUCTION DIRECTOR Office Visit [facility] [address] [place] [address] Katiana Read MD [address] [place] [address] documented as of this encounter Visit Diagnoses Not on filedocumented in this encounter Additional Health Concerns Infection Onset Date Last Indicated Resolved Time Rule Out COVID-19 08/19/2020 08/19/2020 08/19/2020 4:40 PM PRODUCTION DIRECTOR Rule Out C-difficile 02/27/2021 02/27/2021 021 [...] documented as of this encounter Care Teams 911 Telecommunicator Relationship Specialty Start Date End Date Len Adhikari MD PCP - General Family Practice 11/08/16 05/09/22 [place] [address] [place] [address] PCP - General Family Medicine 05/18/22 Jovany Gonzalez MD [facility] [address]00 [facility] [address] [place], [place] 8[address] Orthopedics 02/15/17 Staci Woodward THREAD SPINNER [facility] [address] [place] [address] Nurse Practitioner Nurse Practitioner Psych/Mental Health 05/10/17 [place] [address] [place] [address] Assigned PCP 11/14/16 01/22/[address] [facility] [address] [place] [address] Health Services Director Dietitian, Registered 07/25/19 [place] [address] [facility] [address] [place], [place] 5[address] Assigned Musculoskeletal Provider 05/02/20 09/13/20 Katiana Read MD [address] [place], [place] 58[address] Assigned Endocrinology Provider 05/02/20 08/01/21 Jovita Daly MD [address] [place] [address] Assigned Surgical Provider 05/02/20 10/04/20 Alexander López MD [address] [place], [place] 47[address] Assigned Sleep Provider 05/02/20 11/15/20 Jsee Doyle MD [address] [place] [address] 054725 Assigned Pulmonology Provider 05/02/20 04/11/21 Roshni Nascimento, RN Personal Advocate & Liaison (PAL) Family Medicine 08/18/20 [facility] [address] [place] [address] [address] [place], [place] [phone] Pharmacist Pharmacist 08/28/20 11/26/20 Kiet Swain MD [address] [place] [address] 114824 Referring Physician Psychiatry 09/19/20 Winsome Pike APRN WELDER PLASMA ARC [address] [place] [address] [phone] Nurse Practitioner Psychiatry 09/19/20 Tori Hines, [facility] [address] [place] [address] [phone] Candy Dipper Candy Dipper - Clinical 09/19/20 [facility] [id number] [place] [address] Pharmacist Pharmacist 11/12/20 Winsome Pike APRN WELDER PLASMA ARC [address] [place] [address] 055104 Assigned Behavioral Health Provider 01/04/21 07/02/22 Marisel Armando MD [address] [place] [address] 256995 Gastroenterology 02/05/21 Marisel Armando MD 909 [place] [address] Assigned Gastroenterology Provider 03/08/21 12/24/22 Inderjit Ugalde MD [address] [place] [address] Assigned Surgical Provider 02/15/21 08/20/22 Wesley Barrett MD 420 [facility] 96 [place] [address] Assigned Neuroscience Provider 05/10/21 Charles Jaramillo PA-C 6545 [facility] 450 [place] [address] Assigned Musculoskeletal Provider 04/26/21 10/15/22 [facility] [address] [place] [address] Assigned MTM Pharmacist 12/05/21 03/26/22 [place] [address] [place] [address] Assigned PCP 01/23/22 05/14/22 Miranda Queen [facility] [address] [place] [address] Assigned MTM Pharmacist 04/07/22 05/14/22 [place] [address] [place] [address] Assigned PCP 05/15/22 Katiana Read MD [address] [place] [address] Assigned Endocrinology Provider 06/19/22 [place] [address] [place] [address] Assigned Behavioral Health Provider 07/03/22 12/31/22 Deena Garza, HARNESS MENDER [facility] [address] [place] [address] Assigned Pain Medication Provider 07/19/22 10/29/22 Mary Del Cid, RAFAEL [address] [place] [address] Nurse Practitioner Nurse Practitioner 10/18/22 Elham Stack, [facility] 3033 [place] [address] Pharmacist Pharmacist 10/19/22 Emerita Potter, [facility] Clinic Acetaldehyde Converter Operator Candy Dipper - Clinical 10/29/22 11/02/22 [place] [address] [place] [address] Assigned Pain Medication Provider 10/30/22 12/03/22 Michelle Guzman DPM, Podiatry/Foot and Ankle Surgery [address] [facility] [place] [address] Assigned Musculoskeletal Provider 10/16/22 04/08/23 [place] [address] [place] [address] Assigned Pain Medication Provider 12/04/22 04/01/23 [place] [address] [place] [address] Nurse Practitioner Nurse Practitioner 01/17/23 01/17/23 Aubrey Jones MD [address] [place] [address] Cardiovascular Disease 03/28/23 Blanquita Morales Health Services Director Diabetes Education 04/25/23 Aubrey Jones MD [address] [place] [address] Assigned Heart and Vascular Provider 05/07/23 documented as of this encounter
--- OUTSIDE RECORDS SUMMARY | 2023-08-03 12:57 | XMS_ITS | Encounter Summary ---
Author Name Unknown Organization [place] Address [address] [place] [address]. [place] [address] Care Team Providers Care Steward/Stewardess Economy Class Name Role Phone Len Adhikari MD Primary Care Provider Jovany Gonzalez MD Unavailable CrissyStaci jeong ASSEMBLER TESTER Unavailable [phone] Len Adhikari MD Unavailable Reanna Smith [address] Unavailable Jamshid Granados MD Unavailable [phone] Katiana Read MD Unavailable [phone] Jovita Daly MD Unavailable [phone] Alexander López MD Unamarcelina lable Jese Doyle MD Unavailable [phone] Roshni Nascimento RN Unavailable Unavailable Johana Groves [facility] Unavailable [phone] Kiet Swain MD Unavailable [phone] Winsome Pike APRN FERN CUTTER Unavailable +[phone] Tori Hines [facility] Unavailable Miranda Queen [facility] Unavailable Unavailable Winsome Pike APRN FERN CUTTER Unavailable Marisel Armando MD Unavailable Marisel Armando MD Unavailable Inderjit Ugalde MD Unavailable Wesley Barrett MD Unavailable +[phone] EllaCharles jimenez Michele GEIGER Unavailable +[phone] Miranda Queen [facility] Unavailable Unavailable Leeann Rinaldi MD Unavailable Miranda Queen [facility] Unavailable Unavailable Dyan Fuentes MD Primary Care Provider [phone] Dyan Fuentes MD Unavailable [phone] Katiana Read MD Unavailable [phone] Meme Singleotn PhD Unavailable [phone] Deena Garza APRN FERN CUTTER Unavailable +[phone] Mary Del Cid NP Unavailable + [phone] Elham Stack [facility] Unavailable [phone] Emerita Potter [facility] Unavailable +[phone] Mary Del Cid NP Unavailable + [phone] [...] Team (Late st Contact Info) Description 12/24/2019 [facility] [address] [place] [phone] [place] [address] [place] [address] Medication Refill Social History Tobacco Use Types [...] prescribing provider. * Telephone Encounter - Katiana Read MD - 12/25/2019 9:53 AM CDT Please route to prescribing provider. documented in this encounter Plan of Treatment Upcoming Encounters Date Type Department Care Team (Late st Contact Info) Description 08/18/2023 3:00 PM RUG HOOKER HAND Office Visit [facility] [address] [place] [address] Katiana Read MD [address] [place], [place] [address] documented as of this encounter Visit Diagnoses Diagnosis Chronic insomnia Insomnia, unspecified documented in this encounter Additional Health Concerns Infection Onset Date Last Indicated Resolved Time Rule Out COVID-19 08/19/2020 08/19/2020 08/19/2020 4:40 PM RUG HOOKER HAND Rule Out C-difficile 02/27/2021 02/27/2021 021 6:10 [...] as of this encounter Care Teams Steward/Stewardess Economy Class Relationship Specialty Start Date End Date Len Adhikari MD PCP - General Family Practice 11/08/16 05/09/22 [place] [address] [place] [address] PCP - General Family Medicine 05/18/22 Jovany Gonzalez MD [facility] [address] [facility] [address] [place] [address] Orthopedics 02/15/17 Staci Woodward ASSEMBLER TESTER [facility] [address] [place] [address] Nurse Practitioner Nurse Practitioner Psych/Mental Health 05/10/17 [place] [address] [place] [address] Assigned PCP 11/14/16 01/22/[address] [facility] [address] [place] [address] Space Operations Officer Dietitian, Registered 07/25/19 [place] [address] [facility] [address] [place], [place] [address] Assigned Musculoskeletal Provider 05/02/20 09/13/20 Katiana Read MD [address] 200 [place], [place] [address] Assigned Endocrinology Provider 05/02/20 08/01/21 Jovita Daly MD [address] [place], [place] 247[address] Assigned Surgical Provider 05/02/20 10/04/20 Alexander López MD 606 [facility] 106 [place], [place] [address] Assigned Sleep Provider 05/02/20 11/15/20 Jese Doyle MD 909 [place] [address] Assigned Pulmonology Provider 05/02/20 04/11/21 Roshni Nascimento, RN Personal Advocate & Liaison (PAL) Family Medicine 08/18/20 Johana Groves, [facility] [address] [place] [address] Pharmacist Pharmacist 08/28/20 11/26/20 Kiet Swain MD [address] [place] [address] 923594 Referring Physician Psychiatry 09/19/20 Winsome Pike APRN FERN CUTTER [address] [place] [address] 996794 Nurse Practitioner Psychiatry 09/19/20 Tori Hines, [facility] [address] [place] [address] [phone] Button Machine Operator Button Machine Operator - Clinical 09/19/20 [facility] [address] [place] [address] Pharmacist Pharmacist 11/12/20 Winsome Pike APRN FERN CUTTER [address] [place] [address] 022264 Assigned Behavioral Health Provider 01/04/21 07/02/22 Marisel Armando MD [address] [place] [address] 027575 Gastroenterology 02/05/21 Marisel Armando MD [address] [place] [address] 743055 Assigned Gastroenterology Provider 03/08/21 12/24/22 Inderjit Ugalde MD [address] [place] [address] Assigned Surgical Provider 02/15/21 08/20/22 Wesley Barrett MD 420 [facility] 96 [place] [address] Assigned Neuroscience Provider 05/10/21 Charles Jaramillo PA-C [address] [facility] 450 [place] [address] Assigned Musculoskeletal Provider 04/26/21 10/15/22 Miranda Queen [facility] [address] [place] [address] Assigned MTM Pharmacist 12/05/21 03/26/22 [place] [address] [place] [address] Assigned PCP 01/23/22 05/14/22 Miranda Queen [facility] [address] [place] [address] Assigned MTM Pharmacist 04/07/22 05/14/22 [place] [address] [place] [address] Assigned PCP 05/15/22 Katiana Read MD [address] [facility] 200 [place] [address] Assigned Endocrinology Provider 06/19/22 [place] [address] [place] [address] Assigned Behavioral Health Provider 07/03/22 12/31/22 Deena Garza APRN CNP [address] [place] [place] [address] Assigned Pain Medication Provider 07/19/22 10/29/22 [place] [address] [place] [address] Nurse Practitioner Nurse Practitioner 10/18/22 Elham Stack, [facility] 3033 [place] [address] Pharmacist Pharmacist 10/19/22 Emerita Potter, [facility] Clinic Real Estate Loan Processor Button Machine Operator - Clinical 10/29/22 11/02/22 [place] [address] [place] [address] Assigned Pain Medication Provider 10/30/22 12/03/22 Michelle Guzman DPM, Podiatry/Foot and Ankle Surgery [address] [place] [address] Assigned Musculoskeletal Provider 10/16/22 04/08/23 [place] [address] [place] [address] Assigned Pain Medication Provider 12/04/22 04/01/23 [place] [address] [address] [place] [address] Nurse Practitioner Nurse Practitioner 01/17/23 01/17/23 Aubrey Jones MD [address] [place] [address] Cardiovascular Disease 03/28/23 Blanquita Morales Space Operations Officer Diabetes Education 04/25/23 Aubrey Jones MD [address] [place] [address] Assigned Heart and Vascular Provider 05/07/23 documented as of this encounter
--- OUTSIDE RECORDS SUMMARY | 2023-08-03 12:57 | XMS_ITS | Encounter Summary ---
Author Name Unknown Organization [facility] Address [address] [place] [address]. [place] [address] Care Team Providers Care Dog Catcher Name Role Phone Len Adhikari MD Primary Care Provider Jovany Gonzalez MD Unavailable [phone] CrissyStaci jeong EDUCATION AND TRAINING MANAGER Unavailable [phone] Len Adhikari MD Unavailable Reanna Smith RD Unavailable [phone] Jamshid Granados MD Unavailable Katiana Read MD Unavailable +[phone] Jovita Daly MD Unavailable +[phone] Alexander López MD Unamarcelina lable Jese Doyle MD Unavailable +[phone] Roshni Nascimento RN Unavailable Unavailable Johana Groves [facility] Unavailable Kiet Swain MD Unavailable [phone] Winsome Pike APRN SHOVEL HANDLE ASSEMBLER Unavailable +[phone] Tori Hines [facility] Unavailable Miranda Queen [facility] Unavailable Unavailable Winsome Pike APRN SHOVEL HANDLE ASSEMBLER Unavailable Marisel Armando MD Unavailable Marisel Armando MD Unavailable Inderjit Ugalde MD Unavailable [phone] Wesley Barrett MD Unavailable +[phone] EllaCharles jimenez Michele GEIGER Unavailable +[phone] Miranda Queen [facility] Unavailable Unavailable Leeann Rinaldi MD Unavailable Miranda Queen [facility] Unavailable Unavailable Dyan Fuentes MD Primary Care Provider +[phone] Dyan Fuentes MD Unavailable +[phone] Katiana Read MD Unavailable [phone] Meme Singleton PhD Unavailable +[phone] Deena Garza APRN SHOVEL HANDLE ASSEMBLER Unavailable +[phone] Mary Del Cid NP Unavailable + [phone] Elham Stack [facility] Unavailable +[phone] Emerita Potter [facility] Unavailable +[phone] Mary Del Cid NP Unavailable + [phone] Michelle Guzman DPM, Podiatry /Foot and Ankle Surgery Unavailable Dyan Fuentes MD Unavailable +[phone] Mary Del Cid NP Unavailable + [phone] Aubrey Jones MD Unavailable +[phone] Blanquita Morales Unavailable Unavailable Aubrey Jones MD Unavailable +[phone] Encounter Details Date Type Department Care Team (Late st Contact Info) Description 02/01/2020 [facility] [address] [address] [place] [address] [place] [address] Social History Tobacco Use Types Packs/Day Years [...] Contact Info) Description 08/18/2023 3:00 PM CLOTH SHRINKING MACHINE OPERATOR Office Visit [facility] [address] [facility] [address] [place] [address] Katiana Read MD [address] [place] [address] [address] [place] [address] documented as of this encounter Visit Diagnoses Not on filedocumented in this encounter Additional Health Concerns Infection Onset Date Last Indicated Resolved Time Rule Out COVID-19 08/19/2020 08/19/2020 08/19/2020 4:40 PM CLOTH SHRINKING MACHINE OPERATOR Rule Out C-difficile 02/27/2021 02/27/2021 [...] documented as of this encounter Care Teams Dog Catcher Relationship Specialty Start Date End Date Len Adhikari MD PCP - General Family Practice 11/08/16 05/09/22 [place] [address] [place] [address] PCP - General Family Medicine 05/18/22 Jovany Gonzalez MD [facility] 6600 [facility] [address] [place] [address] Orthopedics 02/15/17 Staci Woodward EDUCATION AND TRAINING MANAGER [place] [address] [place] [address] Nurse Practitioner Nurse Practitioner Psych/Mental Health 05/10/17 [place] [address] [facility] [place] [address] Assigned PCP 11/14/16 01/22/[address] [facility] [address] [place] [address] Locomotive Observer Dietitian, Registered 07/25/19 [place] [address] [facility] [address] [place], [place] [address] Assigned Musculoskeletal Provider 05/02/20 09/13/20 Katiana Read MD [address] [place], [place] [address] Assigned Endocrinology Provider 05/02/20 08/01/21 Jovita Daly MD [address] [place], [place] [address] Assigned Surgical Provider 05/02/20 10/04/20 Alexander López MD [address] [facility] 106 [place] [address] Assigned Sleep Provider 05/02/20 11/15/20 Jese Doyle MD 909 [place] [address] Assigned Pulmonology Provider 05/02/20 04/11/21 Roshni Nascimento RN Personal Advocate & Liaison (PAL) Family Medicine 08/18/20 oJhana Groves [facility] [address] [place] [phone] Pharmacist Pharmacist 08/28/20 11/26/20 Kiet Swain MD 2450 [facility] NG[address] [place], [place] [id number] Referring Physician Psychiatry 09/19/20 Winsome Pike APRN SHOVEL HANDLE ASSEMBLER [address] [address] Nurse Practitioner Psychiatry 09/19/20 Tori Hines [facility] 2450 [place], [place] [address] Nursing Unit Manager Nursing Unit Manager - Clinical 09/19/20 Miranda Queen [facility] [address] [place] [address] Pharmacist Pharmacist 11/12/20 Winsome Pike APRN SHOVEL HANDLE ASSEMBLER [address] [phone] Assigned Behavioral Health Provider 01/04/21 07/02/22 Marisel Armando MD [address] [place] [phone] Gastroenterology 02/05/21 Marisel Armando MD 909 [place], [place] [address] Assigned Gastroenterology Provider 03/08/21 12/24/22 Inderjit Ugalde MD [address] [facility] 300 [place], [place] [address] Assigned Surgical Provider 02/15/21 08/20/22 Wesley Barrett MD 420 [facility] 96 [place], [place] [address] Assigned Neuroscience Provider 05/10/21 Charles Jaramillo PA-C [address] [address] Assigned Musculoskeletal Provider 04/26/21 10/15/22 [facility] [address] [place] [address] Assigned MTM Pharmacist 12/05/21 03/26/22 [place] [address] [place] [address] Assigned PCP 01/23/22 05/14/22 [facility] [address] [place] [address] Assigned MTM Pharmacist 04/07/22 05/14/22 [place] [address] [place] [address] Assigned PCP 05/15/22 Katiana Read MD [address] [place] [address] Assigned Endocrinology Provider 06/19/22 [place] [address] [place] [address] Assigned Behavioral Health Provider 07/03/22 12/31/22 Deena Garza APRN SHOVEL HANDLE ASSEMBLER [address] [place] [address] Assigned Pain Medication Provider 07/19/22 10/29/22 Mary Del Cid, RAFAEL [address] [place] [address] Nurse Practitioner Nurse Practitioner 10/18/22 Elham Stack, [facility] 3033 [place] [address] Pharmacist Pharmacist 10/19/22 Abbey Emerita M, [facility] Clinic Underground Mine Machinery Mechanic Nursing Unit Manager - Clinical 10/29/22 11/02/22 [place] [address] [place] [address] Assigned Pain Medication Provider 10/30/22 12/03/22 Michelle Guzman, DPM, Podiatry/Foot and Ankle Surgery [address] [place] [address] Assigned Musculoskeletal Provider 10/16/22 04/08/23 [place] [address] [place] [address] Assigned Pain Medication Provider 12/04/22 04/01/23 [place] [address] [place] [address] Nurse Practitioner Nurse Practitioner 01/17/23 01/17/23 Aubrey Jones MD [address] [place] [address] Cardiovascular Disease 03/28/23 Blanquita Morales Locomotive Observer Diabetes Education 04/25/23 Aubrey Jones MD [address] [place] [address] Assigned Heart and Vascular Provider 05/07/23 documented as of this encounter
--- OUTSIDE RECORDS SUMMARY | 2023-08-03 12:57 | XMS_ITS | Encounter Summary ---
Author Name Unknown Organization [facility] Address [address] [place] [address]. [place] [address] Care Team Providers Care Ruffler Name Role Phone Len Adhikari MD Primary Care Provider [phone] Jovany Gonzalez MD Unavailable CrissyStaci jeong SYSTEM TRAINER Unavailable [phone] eLn Adhikari MD Unavailable [phone] Unavailable Jamshid Granados MD Unavailable +[phone] Katiana Read MD Unavailable +[phone] Jovita Daly MD Unavailable +[phone] Alexander López MD Unamarcelina lable Jese Doyle MD Unavailable +[phone] Roshni Nascimento RN Unavailable Unavailable Johana Groves [facility] Unavailable +[phone] Kiet Swain MD Unavailable [phone] Winsome Pike APRN ADMINISTRATION PROFESSIONAL Unavailable +[phone] Tori Hines [facility] Unavailable Miranda Queen [facility] Unavailable Unavailable Winsome Pike APRN ADMINISTRATION PROFESSIONAL Unavailable Marisel Armando MD Unavailable Marisel Armando MD Unavailable Inderjit Ugalde MD Unavailable [phone] Wesley Barrett MD Unavailable +[phone] EllaCharles jimenez Michele GEIGER Unavailable +[phone] Miranda Queen [facility] Unavailable Unavailable Leeann Rinaldi MD Unavailable Miranda Queen [facility] Unavailable Unavailable Dyan Fuentes MD Primary Care Provider [phone] Dyan Fuentes MD Unavailable [phone] Katiana Read MD Unavailable +[phone] Meme Singleton PhD Unavailable +[phone] Deena Garza APRN ADMINISTRATION PROFESSIONAL Unavailable +[phone] Mary Del Cid NP Unavailable + [phone] Elham Stack [facility] Unavailable +[phone] Emerita Potter [facility] Unavailable +[phone] Mary Del Cid NP Unavailable + [phone] Michelle Guzman DPM, Podiatry /Foot and Ankle Surgery Unavailable Dyan Fuentes MD Unavailable [phone] Mary Del Cid NP Unavailable + [phone] Aubrey Jones MD Unavailable [phone] Blanquita Morales Unavailable Unavailable Aubrey Jones MD Unavailable [phone] Encounter Details Date Type Department Care Team (Late st Contact Info) Description 01/14/2020 [facility] [address] [address] [place] [address] [place] [address] Social History Tobacco Use Types Packs/Day Years [...] st Contact Info) Description 08/18/2023 3:00 PM CONTROL CLERK AUDITING Office Visit [facility] [address] [facility] [address] [place] [address] Katiana Read MD [address] [place] [address] [address] [place] [address] documented as of this encounter Visit Diagnoses Not on filedocumented in this encounter Additional Health Concerns Infection Onset Date Last Indicated Resolved Time Rule Out COVID-19 08/19/2020 08/19/2020 08/19/2020 4:40 PM CONTROL CLERK AUDITING Rule Out C-difficile 02/27/2021 02/27/2021 021 6:10 [...] documented as of this encounter Care Teams Ruffler Relationship Specialty Start Date End Date Len Adhikari MD PCP - General Family Practice 11/08/16 05/09/22 [place] [address] [place] [address] PCP - General Family Medicine 05/18/22 Jovany Gonzalez MD [facility] 6600 [facility] [address] [place] [address] Orthopedics 02/15/17 Staci Woodward SYSTEM TRAINER [place] [address] [place] [address] Nurse Practitioner Nurse Practitioner Psych/Mental Health 05/10/17 [place] [address] [facility] [place] [address] Assigned PCP 11/14/16 01/22/[address] [facility] [address] [place] [address] Data Technical Lead Dietitian, Registered 07/25/19 [place] [address] [facility] [address] [place], [place] [address] Assigned Musculoskeletal Provider 05/02/20 09/13/20 Katiana Read MD [address] [place], [place] [address] Assigned Endocrinology Provider 05/02/20 08/01/21 Jovita Daly MD [address] [place], [place] [address] Assigned Surgical Provider 05/02/20 10/04/20 Alexander López MD 606 [facility] 106 [place] [address] Assigned Sleep Provider 05/02/20 11/15/20 Jese Doyle MD 909 [place] [address] Assigned Pulmonology Provider 05/02/20 04/11/21 Roshni Nascimento RN Personal Advocate & Liaison (PAL) Family Medicine 08/18/20 Johana Groves [facility] [facility] [address] [place], [place] [phone] Pharmacist Pharmacist 08/28/20 11/26/20 Kiet Swain MD 2450 [facility] NG15 [place], [place] [address] Referring Physician Psychiatry 09/19/20 Winsome Pike APRN ADMINISTRATION PROFESSIONAL [address] [address] Nurse Practitioner Psychiatry 09/19/20 Tori Hines [facility] 2450 [place], [place] [phone] History Teacher History Teacher - Clinical 09/19/20 Miranda Queen [facility] [address] [place] [address] Pharmacist Pharmacist 11/12/20 Winsome Pike APRN ADMINISTRATION PROFESSIONAL [address] [phone] Assigned Behavioral Health Provider 01/04/21 07/02/22 Marisel Armando MD [address] [place] [id number] Gastroenterology 02/05/21 Marisel Armando MD 909 [place], [place] [address] Assigned Gastroenterology Provider 03/08/21 12/24/22 Inderjit Uaglde MD [address] [facility] 300 [place], [place] [address]757 Assigned Surgical Provider 02/15/21 08/20/22 Wesley Barrett MD 420 [facility] 96 [place], [place] [address] Assigned Neuroscience Provider 05/10/21 Charles Jaramillo PA-C [address] [address] Assigned Musculoskeletal Provider 04/26/21 10/15/22 [facility] [address] [place] [address] Assigned MTM Pharmacist 12/05/21 03/26/22 [place] [address] [place] [address] Assigned PCP 01/23/22 05/14/22 [facility] [address] [place] [address] Assigned MTM Pharmacist 04/07/22 05/14/22 [place] [address] [place] [address] Assigned PCP 05/15/22 Katiana Read MD [address] [place] [address] Assigned Endocrinology Provider 06/19/22 [place] [address] [place] [address] Assigned Behavioral Health Provider 07/03/22 12/31/22 Deena Garza APRN ADMINISTRATION PROFESSIONAL [address] [place] [address]77 Assigned Pain Medication Provider 07/19/22 10/29/22 Mary Del Cid, RAFAEL [address] [place] [address]27 Nurse Practitioner Nurse Practitioner 10/18/22 Elham Stack, [facility] 3033 [place] [address] Pharmacist Pharmacist 10/19/22 Abbey Emerita M, [facility] Clinic Harness Tier History Teacher - Clinical 10/29/22 11/02/22 [place] [address] [address] [place] [address] Assigned Pain Medication Provider 10/30/22 12/03/22 Michelle Guzman, DPM, Podiatry/Foot and Ankle Surgery [address] [place] [address] Assigned Musculoskeletal Provider 10/16/22 04/08/23 [place] [address] [place] [address] Assigned Pain Medication Provider 12/04/22 04/01/23 [place] [address] [place] [address] Nurse Practitioner Nurse Practitioner 01/17/23 01/17/23 Aurbey Jones MD [address] [place] [address] Cardiovascular Disease 03/28/23 Blanquita Morales Data Technical Lead Diabetes Education 04/25/23 Aubrey Jones MD [address] [place] [address] Assigned Heart and Vascular Provider 05/07/23 documented as of this encounter
--- OUTSIDE RECORDS SUMMARY | 2023-08-03 12:57 | XMS_ITS | Encounter Summary ---
Author Name Unknown Organization [facility] Address [address] [place] [address]. [place] [address] Care Team Providers Care Shear Scrapman Name Role Phone Len Adhikari MD Primary Care Provider Jovany Gonzalez MD Unavailable CrissyStaci jeong EXCELLENCE MANAGER Unavailable [phone] Len Adhikari MD Unavailable Reanna Smith [address] Unavailable [phone] Jamshid Granados MD Unavailable +[phone] Katiana Read MD Unavailable +[phone] Jovita Daly MD Unavailable +[phone] Alexander López MD Unamarcelina lable Jese Doyle MD Unavailable [phone] Roshni Nascimento RN Unavailable Unavailable Johana Groves [facility] Unavailable +[phone] Kiet Swain MD Unavailable +[phone] Winsome Pike APRN CLINICAL DOCUMENTATION NURSE Unavailable +[phone] Tori Hines [facility] Unavailable Miranda Queen [facility] Unavailable Unavailable Winsome Pike APRN CLINICAL DOCUMENTATION NURSE Unavailable Marisel Armando MD Unavailable Marisel Armando MD Unavailable Inderjit Ugalde MD Unavailable +[phone] Wesley Barrett MD Unavailable +[phone] EllaCharles Michele GEIGER Unavailable +[phone] Miranda Queen [facility] Unavailable Unavailable Leeann Rinaldi MD Unavailable Miranda Queen [facility] Unavailable Unavailable Dyan Fuentes MD Primary Care Provider +[phone] Dyan Fuentes MD Unavailable +[phone] Katiana Read MD Unavailable +[phone] Meme Singleton PhD Unavailable +[phone] Deena Garza APRN CLINICAL DOCUMENTATION NURSE Unavailable +[phone] Mary Del Cid NP Unavailable + [phone] Elham Stack [facility] Unavailable Emerita Potter [facility] Unavailable +[phone] Mary Del Cid NP Unavailable + [phone] Michelle Guzman DPM, Podiatry /Foot and Ankle Surgery Unavailable Dyan Fuentes MD Unavailable +[phone] Mary Del Cid NP Unavailable +[phone] Aubrey Jones MD Unavailable [phone] Blanquita Morales Unavailable Unavailable Aubrey Jones MD Unavailable +[phone] Encounter Details Date Type Department Care Team (Late st Contact Info) Description 12/25/2019 [facility] [address] [place] [address] Rachelle Benites, TECHNICAL DELIVERY MANAGER Social History Tobacco Use Types Packs/Day Years [...] Contact Info) Description 08/18/2023 3:00 PM SUPERVISOR SMALL APPLIANCE ASSEMBLY Office Visit [facility] [address] [facility] [address] [place] [address] Katiana eRad MD [address] [address] [place] [address] documented as of this encounter Visit Diagnoses Not on filedocumented in this encounter Additional Health Concerns Infection Onset Date Last Indicated Resolved Time Rule Out COVID-19 08/19/2020 08/19/2020 08/19/2020 4:40 PM SUPERVISOR SMALL APPLIANCE ASSEMBLY Rule Out C-difficile 02/27/2021 02/27/2021 021 6:10 [...] documented as of this encounter Care Teams Shear Scrapman Relationship Specialty Start Date End Date Len Adhikari MD PCP - General Family Practice 11/08/16 05/09/22 [place] [address] [place] [address] PCP - General Family Medicine 05/18/22 Jovany Gonzalez MD [facility] 6600 [facility] 605 [place], [place] [address] Orthopedics 02/15/17 Staci Woodward NP [place] [address] [place] [address] Nurse Practitioner Nurse Practitioner Psych/Mental Health 05/10/17 [place] [address] [place] [address] Assigned PCP 11/14/16 01/22/[address] [place] [address] [place] [address] Can Marker Dietitian, Registered 07/25/19 [place] [address] [facility] 300 [place], [place] [address] Assigned Musculoskeletal Provider 05/02/20 09/13/20 Katiana Read MD [address] [place] [address] 200 [place] [address] Assigned Endocrinology Provider 05/02/20 08/01/21 Jovita Dlay MD [address] [place] [address] Assigned Surgical Provider 05/02/20 10/04/20 Alexander López MD 606 24[facility] 106 [place], [place] [address] Assigned Sleep Provider 05/02/20 11/15/20 Jese Doyle MD 909 [place], [place] [address] Assigned Pulmonology Provider 05/02/20 04/11/21 Roshni Nascimento, RN Personal Advocate & Liaison (PAL) Family Medicine 08/18/20 Joahna Groves, [facility] [address] [facility] [address] Pharmacist Pharmacist 08/28/20 11/26/20 Kiet Swain MD [facility] NG[address] [place], [place] [phone] Referring Physician Psychiatry 09/19/20 Winsome Pike, [facility] CLINICAL DOCUMENTATION NURSE [address] [place] [address] Nurse Practitioner Psychiatry 09/19/20 Tori Hines, [facility] 2450 [place] [address] Electronic Assembler Electronic Assembler - Clinical 09/19/20 Miranda Queen [facility] [address] [place] [address] Pharmacist Pharmacist 11/12/20 Winsome Pike APRN CNP [address] [address] Assigned Behavioral Health Provider 01/04/21 07/02/22 Marisel Armando MD [address] [place] [address] Gastroenterology 02/05/21 Marisel Armando MD [address] [place] [address] Assigned Gastroenterology Provider 03/08/21 12/24/22 Inderjit Ugalde MD [address] [address] Assigned Surgical Provider 02/15/21 08/20/22 Wesley Barrett MD [address] [place] [address] Assigned Neuroscience Provider 05/10/21 Charles Jaramillo PA-C [address] [address] Assigned Musculoskeletal Provider 04/26/21 10/15/22 Miranda Queen [facility] [address] [place] [address] Assigned MTM Pharmacist 12/05/21 03/26/22 [place] [address] [place] [address] Assigned PCP 01/23/22 05/14/22 Miranda Queen, [facility] [address] [place] [address] Assigned MTM Pharmacist 04/07/22 05/14/22 [place] [address] [place] [address] Assigned PCP 05/15/22 Katiana Read MD [address] [address] Assigned Endocrinology Provider 06/19/22 [place] [address] [place] [address] [place] [address] Assigned Behavioral Health Provider 07/03/22 12/31/22 Deena Garza APRN CLINICAL DOCUMENTATION NURSE [address] [place] [address] Assigned Pain Medication Provider 07/19/22 10/29/22 Mary Del Cid, RAFAEL [address] [place] [address] Nurse Practitioner Nurse Practitioner 10/18/22 Elham Stack, [facility] [address] [facility] [place] [address] Pharmacist Pharmacist 10/19/22 Emerita Potter, [facility] Clinic Driver Salesman Electronic Assembler - Clinical 10/29/22 11/02/22 Mary Del Cid, RAFAEL [address] [place] [address] Assigned Pain Medication Provider 10/30/22 12/03/22 Michelle Guzman DPM, Podiatry/Foot and Ankle Surgery [address] [place] [address] Assigned Musculoskeletal Provider 10/16/22 04/08/23 [place] [address] [place] [address] Assigned Pain Medication Provider 12/04/22 04/01/23 [place] [address] [place] [address] Nurse Practitioner Nurse Practitioner 01/17/23 01/17/23 Aubrey Jones MD [address] [place] [address] Cardiovascular Disease 03/28/23 Blanquita Morales Can Marker Diabetes Education 04/25/23 Aubrey Jones MD [address] [place] [address] Assigned Heart and Vascular Provider 05/07/23 documented as of this encounter
--- OUTSIDE RECORDS SUMMARY | 2023-08-03 12:57 | XMS_ITS | Encounter Summary ---
Author Name Unknown Organization [facility] Address [address] [place] [address]. [place] [address] Care Team Providers Care Speaker Wirer Name Role Phone Len Adhikari MD Primary Care Provider Jovany Gonzalez MD Unavailable CrissyStaci jeong [employer] Unavailable [phone] Len Adhikari MD Unavailable Reanna Smith RD Unavailable Jamshid Granados MD Unavailable Katiana Read MD Unavailable +[phone] Jovita Daly MD Unavailable +[phone] Alexander López MD Unamarcelina lable Jese Doyle MD Unavailable +[phone] Roshni Nascimento RN Unavailable Unavailable Johana Groves [facility] Unavailable Kiet Swain MD Unavailable [phone] Winsome Pike APRN WAREHOUSE RECORD CLERK Unavailable [phone] Tori Hines [facility] Unavailable Miranda Queen [facility] Unavailable Unavailable Winsome Pike APRN WAREHOUSE RECORD CLERK Unavailable Marisel Armando MD Unavailable Marisel Armando MD Unavailable Inderjit Ugalde MD Unavailable [phone] Wesley Barrett MD Unavailable +[phone] EllaCharles jimenez Michele GEIGER Unavailable +[phone] Miranda Queen [facility] Unavailable Unavailable Leeann Rinaldi MD Unavailable Miranda Queen [facility] Unavailable Unavailable Dyan Fuentes MD Primary Care Provider [phone] Dyan Fuentes MD Unavailable [phone] Katiana Read MD Unavailable [phone] Meme Singleton PhD Unavailable [phone] Deena Garza APRN WAREHOUSE RECORD CLERK Unavailable +[phone] Mary Del Cid NP Unavailable + [phone] Elham Stack [facility] Unavailable [phone] Emerita Potter [facility] Unavailable [phone] Mary Del Cid NP Unavailable + [phone] Michelle Guzman DPM, Podiatry /Foot and Ankle Surgery Unavailable Dyan Fuentes MD Unavailable [phone] Mary Del Cid NP Unavailable + [phone] Aubrey Jones MD Unavailable +[phone] Blanquita Morales Unavailable Unavailable Aubrey Jones MD Unavailable +[phone] Encounter Details Date Type Department Care Team (Late st Contact Info) Description 02/11/2020 [facility] [address] [id number] Criselda Ma APRN WAREHOUSE RECORD CLERK Social History Tobacco Use Types Packs/Day [...] Upcoming Encounters Date Type Department Care Team ([facility] st Contact Info) Description 08/18/2023 3:00 PM SLUDGE CONTROL ATTENDANT Office Visit [facility] [address] [facility] [address] [place] [address] Katiana Read MD [address] [place] [address] 200 [place] [address] documented as of this encounter Visit Diagnoses Not on filedocumented in this encounter Additional Health Concerns Infection Onset Date Last Indicated Resolved Time Rule Out COVID-19 08/19/2020 08/19/2020 08/19/2020 4:40 PM SLUDGE CONTROL ATTENDANT Rule Out C-difficile 02/27/2021 02/27/2021 021 [...] documented as of this encounter Care Teams Speaker Wirer Relationship Specialty Start Date End Date Len Adhikari MD PCP - General Family Practice 11/08/16 05/09/22 [place] [address] [place] [address] PCP - General Family Medicine 05/18/22 Jovany Gonzalez MD [facility] [address]00 [facility] 605 [place], [place] [address] Orthopedics 02/15/17 Staci Woodward NP [facility] [address] [place], [place] [address] Nurse Practitioner Nurse Practitioner Psych/Mental Health 05/10/17 [place] [address] [facility] [address] Assigned PCP 11/14/16 01/22/[address] [facility] [address] [place], [place] [address] Buying Intern Dietitian, Registered 07/25/19 [place] [address] [facility] 300 [place], [place] [address] Assigned Musculoskeletal Provider 05/02/20 09/13/20 Katiana Read MD [address] [facility] 200 [place], [place] 7[address]50 Assigned Endocrinology Provider 05/02/20 08/01/21 Jovita Daly MD [address] [place], [place] 991617 Assigned Surgical Provider 05/02/20 10/04/20 Alexander López MD [address] [facility] 106 [place], [place] 985184 Assigned Sleep Provider 05/02/20 11/15/20 Jese Doyle MD 909 [place], [place] 513465 Assigned Pulmonology Provider 05/02/20 04/11/21 Roshni Nascimento RN Personal Advocate & Liaison (PAL) Family Medicine 08/18/20 Johana Groves, [facility] [address] [place], [place] [address] Pharmacist Pharmacist 08/28/20 11/26/20 Kiet Swain MD 2450 [facility] [place], [place] 889784 Referring Physician Psychiatry 09/19/20 Winsome Pike APRN WAREHOUSE RECORD CLERK [address] [place] [address] Nurse Practitioner Psychiatry 09/19/20 Tori Hines, [facility] 2450 [place], [place] 23[address] Hvac Service Technician Hvac Service Technician - Clinical 09/19/20 Miranda Queen [facility] [address] [place] [address] Pharmacist Pharmacist 11/12/20 Winsome Pike APRN WAREHOUSE RECORD CLERK [address] [place] [address] 5790[address] Assigned Behavioral Health Provider 01/04/21 07/02/22 Marisel Armando MD [address] [place] [address] 228915 Gastroenterology 02/05/21 Marisel Armando MD [address] [place] [address] 856235 Assigned Gastroenterology Provider 03/08/21 12/24/22 Inderjit Ugalde MD [address] [facility] 300 [place] [address] Assigned Surgical Provider 02/15/21 08/20/22 Wesley Barrett MD 420 [facility] 96 [place], [place] 22[address]15 Assigned Neuroscience Provider 05/10/21 Charles Jaramillo PA-C [address] 325[address] Assigned Musculoskeletal Provider 04/26/21 10/15/22 Miranda Queen [facility] [address] [place] [address] Assigned MTM Pharmacist 12/05/21 03/26/22 [place] [address] [place] [address] Assigned PCP 01/23/22 05/14/22 Miranda Queen [facility] [address] [place] [address] Assigned MTM Pharmacist 04/07/22 05/14/22 [place] [address] [place] [address] Assigned PCP 05/15/22 Katiana Read MD [address] 656380 Assigned Endocrinology Provider 06/19/22 [place] [address] [place] 369697 Assigned Behavioral Health Provider 07/03/22 12/31/22 Deena Garza APRN WAREHOUSE RECORD CLERK [address] [place] [address] Assigned Pain Medication Provider 07/19/22 10/29/22 Mary Del Cid, RAFAEL [address] [place] [address] Nurse Practitioner Nurse Practitioner 10/18/22 Elham Stcak, [facility] 3033 [place] [address] Pharmacist Pharmacist 10/19/22 Emerita Potter, [facility] Clinic Beef Grinder Hvac Service Technician - Clinical 10/29/22 11/02/22 [place] [address] [place] [address] Assigned Pain Medication Provider 10/30/22 12/03/22 Michelle Guzman, DPM, Podiatry/Foot and Ankle Surgery [address] [place] [address] Assigned Musculoskeletal Provider 10/16/22 04/08/23 [place] [address] [place] [address] Assigned Pain Medication Provider 12/04/22 04/01/23 [place] [address] [place] [address] Nurse Practitioner Nurse Practitioner 01/17/23 01/17/23 Aubrey Jones MD [address] [place] [address] Cardiovascular Disease 03/28/23 Blanquita Morales Buying Intern Diabetes Education 04/25/23 Aubrey Jones MD [address] [place] [address] Assigned Heart and Vascular Provider 05/07/23 documented as of this encounter
--- OUTSIDE RECORDS SUMMARY | 2023-08-03 12:58 | XMS_ITS | Encounter Summary ---
Author Name Unknown Organization [facility] Address [address] [place] [address]. [place] [address] Care Team Providers Care Mosaic Tiler Name Role Phone Len Adhikari MD Primary Care Provider Jovany Gonzalez MD Unavailable [phone] CrissyStaci jeong TOUR COUNSELOR Unavailable [phone] Len Adhikari MD Unavailable [phone] Unavailable [phone] Jamshid Granados MD Unavailable Katiana Read MD Unavailable [phone] Jovita Daly MD Unavailable [phone] Alexander López MD Unamarcelina lable Jese Doyle MD Unavailable [phone] Roshni Nascimento RN Unavailable Unavailable Johana Groves [facility] Unavailable Kiet Swain MD Unavailable [phone] Winsome Pike APRN OPERA SINGER Unavailable [phone] Tori Hines [facility] Unavailable Miranda Queen [facility] Unavailable Unavailable Winsome Pike APRN OPERA SINGER Unavailable Marisel Armando MD Unavailable Marisel Armando MD Unavailable Inderjit Ugalde MD Unavailable [phone] Wesley Barrett MD Unavailable +[phone] EllaCharles jimenez Michele GEIGER Unavailable [phone] Miranda Queen [facility] Unavailable Unavailable Leeann Rinaldi MD Unavailable Miranda Queen [facility] Unavailable Unavailable Dyan Fuentes MD Primary Care Provider [phone] Dyan Fuentes MD Unavailable [phone] Katiana Read MD Unavailable [phone] Meme Singleton PhD Unavailable [phone] Deena Garza APRN OPERA SINGER Unavailable +[phone] Mary Del Cid NP Unavailable + [phone] Elham Stack [facility] Unavailable [phone] Emerita Potter [facility] Unavailable +[phone] Mary Del Cid NP Unavailable + [phone] Mcihelle Guzman DPM, Podiatry /Foot and Ankle Surgery Unavailable Dyan Fuentes MD Unavailable [phone] Mary Del Cid NP Unavailable [phone] Aubrey Jones MD Unavailable [phone] Blanquita Morales Unavailable Unavailable Aubrey Jones MD Unavailable [phone] Reason for Visit * Reason Comments Medication Refill Encounter Details Date Type Department Care Team (Late st Contact Info) Description 11/14/2019 [facility] [address] [place] [address] Katiana Read MD [address] [facility] 200 [place], [place] 58[address] Medication Refill Social History Tobacco Use Types [...] st Contact Info) Description 08/18/2023 3:00 PM COSMETOLOGY INSTRUCTOR Office Visit [facility] [address] [facility] [address] [place] [phone] Katiana Read MD [address] 200 [place] [address] documented as of this encounter Visit Diagnoses Diagnosis Type 1 diabetes mellitus with diabetic neuropathy (H) Type I (juvenile type) diabetes mellitus with neurological manifestations, not stated as uncontrolled documented in this encounter Additional Health Concerns Infection Onset Date Last Indicated Resolved Time Rule Out COVID-19 08/19/2020 08/19/2020 08/19/2020 4:40 PM COSMETOLOGY INSTRUCTOR Rule Out C-difficile 02/27/2021 02/27/2021 021 6:10 [...] documented as of this encounter Care Teams Mosaic Tiler Relationship Specialty Start Date End Date Len Ahdikari MD PCP - General Family Practice 11/08/16 05/09/22 [place] [address] [place] [address] PCP - General Family Medicine 05/18/22 Jovany Gonzalez MD [facility] 6600 [facility] 605 [place], [place] 78[address] Orthopedics 02/15/17 Staci Woodward, TOUR COUNSELOR CLINICS [address] [facility] [place], [place] [address] Nurse Practitioner Nurse Practitioner Psych/Mental Health 05/10/17 [place] [address] [place] [address] Assigned PCP 11/14/16 01/22/[address] [facility] [address] [place] [address] Internist Medical Doctor Md Dietitian, Registered 07/25/19 [place] [address] [facility] [address] [place], [place] 9[address]247 Assigned Musculoskeletal Provider 05/02/20 09/13/20 Katiana Read MD [address] [facility] 200 [place], [place] [address] Assigned Endocrinology Provider 05/02/20 08/01/21 Jovita Daly MD [address] [place], [place] 2[address]77 Assigned Surgical Provider 05/02/20 10/04/20 Alexander López MD [address] 106 [place], [place] [address]164 Assigned Sleep Provider 05/02/20 11/15/20 Jsee Doyle MD 909 [place], [place] [address] Assigned Pulmonology Provider 05/02/20 04/11/21 Roshni Nascimento, RN Personal Advocate & Liaison (PAL) Family Medicine 08/18/20 Johana Groves, [facility] [place] [address] Pharmacist Pharmacist 08/28/20 11/26/20 Kiet Swain MD [address] [address] [place] [address] Referring Physician Psychiatry 09/19/20 Winsome Pike APRN OPERA SINGER [facility] [address] [address] Nurse Practitioner Psychiatry 09/19/20 Tori Hines, [facility] 2450 [place] [address] Filler Leaf Cutter Long Filler Leaf Cutter Long - Clinical 09/19/20 Miranda Queen [facility] [address] [place] [address] Pharmacist Pharmacist 11/12/20 Winsome Pike APRN OPERA SINGER [facility] [address] [address] Assigned Behavioral Health Provider 01/04/21 07/02/22 Marisel Armando MD [address] [place] [address] Gastroenterology 02/05/21 Marisel Armando MD [address] [place] [address] Assigned Gastroenterology Provider 03/08/21 12/24/22 Inderjit Ugalde MD [address] [facility] 300 [place], [place] 78[address] Assigned Surgical Provider 02/15/21 08/20/22 Wesley Barrett MD [address] [place] [address] 96 [place] [address] Assigned Neuroscience Provider 05/10/21 Charles Jaramillo PA-C 6545 [facility] 450 [place] [address] Assigned Musculoskeletal Provider 04/26/21 10/15/22 [facility] [address] [place] [address] Assigned MTM Pharmacist 12/05/21 03/26/22 [place] [address] [place] [address] Assigned PCP 01/23/22 05/14/22 [facility] [address] [place] [address] Assigned MTM Pharmacist 04/07/22 05/14/22 [place] [address] [place] [address] Assigned PCP 05/15/22 Katiana Read MD [address] [place] [address] 200 [place] [address] Assigned Endocrinology Provider 06/19/22 [place]e [place] PhD [address] [place] 423337 Assigned Behavioral Health Provider 07/03/22 12/31/22 Deena Garza, AUTOMATIC RIVETING MACHINE OPERATOR OPERA SINGER [address] [place] 315007 Assigned Pain Medication Provider 07/19/22 10/29/22 Mary Del Cid, RAFAEL [address] [place] 66[address]47 Nurse Practitioner Nurse Practitioner 10/18/22 Elham Stack, [facility] 3033 [place] [address] Pharmacist Pharmacist 10/19/22 Emerita Potter, [facility] Clinic Biomedical Scientist Filler Leaf Cutter Long - Clinical 10/29/22 11/02/22 [place] [address] [place] [address] Assigned Pain Medication Provider 10/30/22 12/03/22 Michelle Guzman, DPM, Podiatry/Foot and Ankle Surgery [address] [place] [address] Assigned Musculoskeletal Provider 10/16/22 04/08/23 [place] [address] [address] [place] [address] Assigned Pain Medication Provider 12/04/22 04/01/23 [place] [address] [place] [address] Nurse Practitioner Nurse Practitioner 01/17/23 01/17/23 Aubrey Jones MD [address] [place] [address] Cardiovascular Disease 03/28/23 Blanquita Morales Internist Medical Doctor Md Diabetes Education 04/25/23 Aubrey Jones MD [address] [place] [address] Assigned Heart and Vascular Provider 05/07/23 documented as of this encounter
--- OUTSIDE RECORDS SUMMARY | 2023-08-03 12:58 | XMS_ITS | Encounter Summary ---
Author Name Unknown Organization [facility] Address [address] [place] [address]. [place] [address] Care Team Providers Care Advertiser Name Role Phone Len Adhikari MD Primary Care Provider Jovany Gonzalez MD Unavailable CrissyStaci jeong DRY PLACER MACHINE OPERATOR Unavailable [phone] Len Adhikari MD Unavailable [phone] Unavailable Jamshid Granados MD Unavailable Katiana Read MD Unavailable [phone] Jovita Daly MD Unavailable [phone] Alexander López MD Unamarcelina lable Jese Doyle MD Unavailable [phone] Roshni Nascimento RN Unavailable Unavailable Johana Groves [facility] Unavailable Kiet Swain MD Unavailable [phone] Winsome Pike APRN CULINARY DIRECTOR Unavailable [phone] Tori Hines [facility] Unavailable Miranda Queen [facility] Unavailable Unavailable Winsome Pike APRN CULINARY DIRECTOR Unavailable Marisel Armando MD Unavailable Marisel Armando MD Unavailable Inderjit Ugalde MD Unavailable [phone] Wesley Barrett MD Unavailable [phone] EllaCharles Michele GEIGER Unavailable +[phone] Miranda Queen [facility] Unavailable Unavailable Leeann Rinaldi MD Unavailable Miranda Queen [facility] Unavailable Unavailable Dyan Fuentes MD Primary Care Provider [phone] Dyan Fuentes MD Unavailable [phone] Katiana Read MD Unavailable [phone] Meme Singleton PhD Unavailable [phone] Deena Garza APRN CULINARY DIRECTOR Unavailable +[phone] Mary Del Cid NP Unavailable + [phone] Elham Stack [facility] Unavailable [phone] Emerita Potter [facility] Unavailable [phone] Mary Del Cid NP Unavailable + [phone] Michelle Guzman DPM, Podiatry /Foot and Ankle Surgery Unavailable Dyan Fuentes MD Unavailable [phone] Mary Del Cid NP Unavailable + [phone] Aubrey Jones MD Unavailable [phone] Blanquita Morales Unavailable Unavailable Aubrey Jones MD Unavailable [phone] Encounter Details Date Type Department Care Team (Late st Contact Info) Description 09/21/2019 [facility] [address] [address] Rachelle Rahman Social History Tobacco Use Types [...] Contact Info) Description 08/18/2023 3:00 PM COMPUTER LAB AIDE Office Visit [facility] [address] [facility] [address] [place] [address] Katiana Read MD [address] 200 [place] [address] documented as of this encounter Visit Diagnoses Not on filedocumented in this encounter Additional Health Concerns Infection Onset Date Last Indicated Resolved Time Rule Out COVID-19 08/19/2020 08/19/2020 08/19/2020 4:40 PM COMPUTER LAB AIDE Rule Out C-difficile 02/27/2021 02/27/2021 021 6:10 [...] documented as of this encounter Care Teams Advertiser Relationship Specialty Start Date End Date Len Adhikari MD PCP - General Family Practice 11/08/16 05/09/22 [place] [address] [place] [address] PCP - General Family Medicine 05/18/22 Jovany Gonzalez MD [facility] 6600 [facility] 605 [place], [place] 57[address] Orthopedics 02/15/17 Staci Woodward NP [address] [place], [place] [address] Nurse Practitioner Nurse Practitioner Psych/Mental Health 05/10/17 [place] [address] [place] [address] Assigned PCP 11/14/16 01/22/[address] [facility] [address] [place] [address] Environmental Health Safety Engineer Dietitian, Registered 07/25/19 [place] [address] [facility] 300 [place], [place] [address] Assigned Musculoskeletal Provider 05/02/20 09/13/20 Katiana Read MD [address] [place] [address] 200 [place] [address] Assigned Endocrinology Provider 05/02/20 08/01/21 Jovita Daly MD [address] [place] [address] Assigned Surgical Provider 05/02/20 10/04/20 Alexander López MD [address] [place] [address] 106 [place], [place] [address] Assigned Sleep Provider 05/02/20 11/15/20 Jese Doyle MD 909 [place], [place] [address] Assigned Pulmonology Provider 05/02/20 04/11/21 Roshni Nascimento, RN Personal Advocate & Liaison (PAL) Family Medicine 08/18/20 [facility] [address] [facility] [address] [place], [place] [address] Pharmacist Pharmacist 08/28/20 11/26/20 Kiet Swain MD [facility]15 [place], [place] [address] Referring Physician Psychiatry 09/19/20 Winsome Pike APRN CULINARY DIRECTOR [address] [address] Nurse Practitioner Psychiatry 09/19/20 Tori Hines, [facility] 2450 [place], [place] 3[address]84 Activity Specialist Activity Specialist - Clinical 09/19/20 Miranda Queen [facility] [address] [place] [address] Pharmacist Pharmacist 11/12/20 Winsome Pike APRN CNP [address] [address] Assigned Behavioral Health Provider 01/04/21 07/02/22 Marisel Armando MD [address] [place] [address] Gastroenterology 02/05/21 Marisel Armando MD [address] [place] [address] Assigned Gastroenterology Provider 03/08/21 12/24/22 Inderjit Ugalde MD [address] [facility] 300 [place] [address] Assigned Surgical Provider 02/15/21 08/20/22 Wesley Barrett MD 420 [facility] 96 [place] [address] Assigned Neuroscience Provider 05/10/21 Charles Jaramillo PA-C 6545 [facility] [address] [address] Assigned Musculoskeletal Provider 04/26/21 10/15/22 Miranda Queen [facility] [address] [facility] [place] [address] Assigned MTM Pharmacist 12/05/21 03/26/22 [place] [address] [place] [address] Assigned PCP 01/23/22 05/14/22 Miranda Queen [facility] [address] [place] [address] Assigned MTM Pharmacist 04/07/22 05/14/22 [place] [address] [place] [address] Assigned PCP 05/15/22 Katiana Read MD [address] [address] Assigned Endocrinology Provider 06/19/22 [place] [address] [place] [address] Assigned Behavioral Health Provider 07/03/22 12/31/22 Deena Garza, CHIEF OPERATIONS OFFICER CULINARY DIRECTOR [address] [place] [address] Assigned Pain Medication Provider 07/19/22 10/29/22 Mary Del Cid, [place] [address] [place] [address] Nurse Practitioner Nurse Practitioner 10/18/22 Elham Stack, [facility] 3033 [place] [address] Pharmacist Pharmacist 10/19/22 Emerita Potter, [facility] Clinic Charge Hand Activity Specialist - Clinical 10/29/22 11/02/22 Mary Del Cid, RAFAEL [address] [place] [address] Assigned Pain Medication Provider 10/30/22 12/03/22 Michelle Guzman DPM, Podiatry/Foot and Ankle Surgery [address] [address] Assigned Musculoskeletal Provider 10/16/22 04/08/23 [place] [address] [place] [address] Assigned Pain Medication Provider 12/04/22 04/01/23 [place] [address] [address] [address] Nurse Practitioner Nurse Practitioner 01/17/23 01/17/23 Aubrey Jones MD [address] [place] [address] Cardiovascular Disease 03/28/23 Blanquita Morales Environmental Health Safety Engineer Diabetes Education 04/25/23 Aubrey Jones MD [address] [place] [address] Assigned Heart and Vascular Provider 05/07/23 documented as of this encounter
--- OUTSIDE RECORDS SUMMARY | 2023-08-03 12:58 | XMS_ITS | Encounter Summary ---
Author Name Unknown Organization [facility] Address [address] [place] [address]. [place] [address] Care Team Providers Care Steamtable Worker Name Role Phone Len Adhikari MD Primary Care Provider Jovany Gonzalez MD Unavailable [phone] CrissyStaci jeong CHORE TENDER Unavailable [phone] Len Adhikari MD Unavailable [phone] Unavailable Jamshid Granados MD Unavailable Katiana Read MD Unavailable [phone] Jovita Daly MD Unavailable +[phone] Alexander López MD Unamarcelina lable Jese Doyle MD Unavailable [phone] Roshni Nascimento RN Unavailable Unavailable Johana Groves [facility] Unavailable +[phone] Kiet Swain MD Unavailable [phone] Winsome Pike APRN DOPER OPERATOR Unavailable +[phone] Tori Hines [facility] Unavailable Miranda Queen [facility] Unavailable Unavailable Winsome Pike APRN DOPER OPERATOR Unavailable Marisel Armando MD Unavailable Marisel Armando MD Unavailable Inderjit Ugalde MD Unavailable [phone] Wesley Barrett MD Unavailable +[phone] EllaCharles jimenez Michele GEIGER Unavailable +[phone] Miranda Queen [facility] Unavailable Unavailable Leeann Rinaldi MD Unavailable Miranda Queen [facility] Unavailable Unavailable Dyan Fuentes MD Primary Care Provider [phone] Dyan Fuentes MD Unavailable [phone] Katiana Read MD Unavailable [phone] Meme Singleton PhD Unavailable [phone] Deena Garza APRN DOPER OPERATOR Unavailable +[phone] Mary Del Cid NP Unavailable + [phone] Elham Stack [facility] Unavailable Emerita Potter [facility] Unavailable +[phone] Mary Del Cid NP Unavailable + [phone] Michelle Guzman DPM, Podiatry /Foot and Ankle Surgery Unavailable Dyan Fuentes MD Unavailable [phone] Mary Del Cid NP Unavailable + [phone] Aubrey Jones MD Unavailable [phone] Blanquita Morales Unavailable Unavailable Aubrey Jones MD Unavailable [phone] Encounter Details Date Type Department Care Team (Late st Contact Info) Description 09/18/2019 [facility] [address] [address] [place] [address] [place] [address] Social History Tobacco Use Types Packs/Day Years [...] Contact Info) Description 08/18/2023 3:00 PM STOCK COUNTER Office Visit [facility] [address] [facility] [address] [place] [address] Katiana Read MD [address] [place] [address] documented as of this encounter Visit Diagnoses Not on filedocumented in this encounter Additional Health Concerns Infection Onset Date Last Indicated Resolved Time Rule Out COVID-19 08/19/2020 08/19/2020 08/19/2020 4:40 PM STOCK COUNTER Rule Out C-difficile 02/27/2021 02/27/2021 021 6:10 [...] documented as of this encounter Care Teams Steamtable Worker Relationship Specialty Start Date End Date Len Adhikari MD PCP - General Family Practice 11/08/16 05/09/22 [place] [address] [place] [address] PCP - General Family Medicine 05/18/22 Jovany Gonzalez MD [facility] 6600 [facility] 605 [place], [place] [address] Orthopedics 02/15/17 Staci Woodward NP [facility] [address] [place], [place] [address] Nurse Practitioner Nurse Practitioner Psych/Mental Health 05/10/17 [place] [address] [facility] [place] [address] Assigned PCP 11/14/16 01/22/[address] [facility] [address] [place], [place] 291727 Mobile Application Engineer Dietitian, Registered 07/25/19 [place] [address] [facility] 300 [place], [place] [address] Assigned Musculoskeletal Provider 05/02/20 09/13/20 Katiana Read MD [address] [facility] 200 [place], [place] 7[address]50 Assigned Endocrinology Provider 05/02/20 08/01/21 Jovita Daly MD [address] [place], [place] [address] Assigned Surgical Provider 05/02/20 10/04/20 Alexander López MD 606 [facility] 106 [place], [place] 56[address]94 Assigned Sleep Provider 05/02/20 11/15/20 Jese Doyle MD 909 [place], [place] 6[address]195 Assigned Pulmonology Provider 05/02/20 04/11/21 Roshni Nascimento, RN Personal Advocate & Liaison (PAL) Family Medicine 08/18/20 Johana Groves, [facility] [address] [facility] [place] [place] [address] Pharmacist Pharmacist 08/28/20 11/26/20 Kiet Swain MD [address] [place], [place] [address] [place], [place] [address] Referring Physician Psychiatry 09/19/20 Winsome Pike APRN DOPER OPERATOR [address] [address] Nurse Practitioner Psychiatry 09/19/20 Tori Hines, [facility] [address] [place] [address] [place] [id number] Business Development Intern Business Development Intern - Clinical 09/19/20 Miranda Queen [facility] [address] [place] [address] Pharmacist Pharmacist 11/12/20 Winsome Pike APRN DOPER OPERATOR [facility] [address] Assigned Behavioral Health Provider 01/04/21 07/02/22 Marisel Armando MD [address] [place] [address] [phone] Gastroenterology 02/05/21 Marisel Armando MD [address] [place] [address] 065765 Assigned Gastroenterology Provider 03/08/21 12/24/22 Inderjit Ugalde MD [address] [facility] 300 [place], [place] [address]307 Assigned Surgical Provider 02/15/21 08/20/22 Wesley Barrett MD 420 [facility] 96 [place], [place] [address]185 Assigned Neuroscience Provider 05/10/21 Charles Jaramillo PA-C [address] [address] Assigned Musculoskeletal Provider 04/26/21 10/15/22 [place] [address] [place] [address] Assigned MTM Pharmacist 12/05/21 03/26/22 [place] [address] [place] [address] Assigned PCP 01/23/22 05/14/22 Miranda Queen [facility] [address] [place] [address] Assigned MTM Pharmacist 04/07/22 05/14/22 [place] [address] [place] [address] Assigned PCP 05/15/22 Katiana Read MD [address] [place] [address] Assigned Endocrinology Provider 06/19/22 Meme Singleton, PhD [address] [address] Assigned Behavioral Health Provider 07/03/22 12/31/22 Deena Garza APRN DOPER OPERATOR [address] [place] [address] Assigned Pain Medication Provider 07/19/22 10/29/22 Mary Del Cid, RAFAEL [address] [address] Nurse Practitioner Nurse Practitioner 10/18/22 Elham Stack, [facility] 3033 [place] [address] Pharmacist Pharmacist 10/19/22 Emerita Potter, [facility] Clinic Paint Trimmer Pipe Bowls Business Development Intern - Clinical 10/29/22 11/02/22 [place] [address] [address] [place] [address] Assigned Pain Medication Provider 10/30/22 12/03/22 Michelle Guzman, DPM, Podiatry/Foot and Ankle Surgery [address] [place] [address] Assigned Musculoskeletal Provider 10/16/22 04/08/23 [place] [address] [place] [address] Assigned Pain Medication Provider 12/04/22 04/01/23 [place] [address] [place] [address] Nurse Practitioner Nurse Practitioner 01/17/23 01/17/23 Aubrey Jones MD [address] [place] [address] Cardiovascular Disease 03/28/23 Blanquita Morales Mobile Application Engineer Diabetes Education 04/25/23 Aubrey Jones MD [address] [place] [address] Assigned Heart and Vascular Provider 05/07/23 documented as of this encounter
--- OUTSIDE RECORDS SUMMARY | 2023-08-03 12:58 | XMS_ITS | Encounter Summary ---
Author Name Unknown Organization [facility] Address [address] [place] [address]. [place] [address] Care Team Providers Care Advertising Layout Worker Name Role Phone Len Adhikari MD Primary Care Provider [phone] Jovany Gonzalez MD Unavailable CrissyStaci jeong BARKING MACHINE FEEDER Unavailable [phone] Len Adhikari MD Unavailable [phone] Unavailable Jamshid Granados MD Unavailable Katiana Read MD Unavailable [phone] Jovita Daly MD Unavailable [phone] Alexander López MD Unamarcelina lable Jese Doyle MD Unavailable [phone] Roshni Nascimento RN Unavailable Unavailable Johana Groves [facility] Unavailable [phone] Kiet Swain MD Unavailable [phone] Winsome Pike APRN C WPF DEVELOPER Unavailable +[phone] Tori Hines [facility] Unavailable Miranda Queen [facility] Unavailable Unavailable Winsome Pike APRN C WPF DEVELOPER Unavailable Marisel Armando MD Unavailable Marisel Armando MD Unavailable Inderjit Ugalde MD Unavailable [phone] Wesley Barrett MD Unavailable +[phone] EllaCharles jimenez Michele GEIGER Unavailable +[phone] Miranda Queen [facility] Unavailable Unavailable Leeann Rinaldi MD Unavailable Miranda Qeuen [facility] Unavailable Unavailable Dyan Fuentes MD Primary Care Provider [phone] Dyan Fuentes MD Unavailable [phone] Katiana Read MD Unavailable [phone] Meme Singleton PhD Unavailable [phone] Deena Garza APRN C WPF DEVELOPER Unavailable +[phone] Mary Del Cid NP Unavailable + [phone] Elham Stack [facility] Unavailable Emerita Potter [facility] Unavailable [phone] Mary Del Cid NP Unavailable + [phone] [...] Team (Late st Contact Info) Description 11/24/2019 [facility] [address] [facility] [address] [place] [phone] Katiana Read MD [address] [facility] 200 [place] [address] Medication Refill (synthroid) Social History Tobacco Use [...] st Contact Info) Description 08/18/2023 3:00 PM CATH LAB TECHNOLOGIST Office Visit [facility] [address] [facility] [address] [place] [address] Katiana Read MD [address] [place] [address] documented as of this encounter Visit Diagnoses Diagnosis Postablative hypothyroidism Other postablative hypothyroidism documented in this encounter Additional Health Concerns Infection Onset Date Last Indicated Resolved Time Rule Out COVID-19 08/19/2020 08/19/2020 08/19/2020 4:40 PM CATH LAB TECHNOLOGIST Rule Out C-difficile 02/27/2021 02/27/2021 021 6:10 [...] documented as of this encounter Care Teams Advertising Layout Worker Relationship Specialty Start Date End Date Len Adhikari MD PCP - General Family Practice 11/08/16 05/09/22 [place] [address] [place] [address] PCP - General Family Medicine 05/18/22 Jovany Gonzalez MD [facility] 6600 [facility] 605 [place] [address] Orthopedics 02/15/17 Staci Woodward NP [place] [address] [place] [address] Nurse Practitioner Nurse Practitioner Psych/Mental Health 05/10/17 [place] [address] [facility] [place] [address] Assigned PCP 11/14/16 01/22/[address] [place] [address] [place] [address] Wrecker Operator Dietitian, Registered 07/25/19 [place] [address] [address] Assigned Musculoskeletal Provider 05/02/20 09/13/20 Katiana Read MD [address] [facility] 200 [place] [address] Assigned Endocrinology Provider 05/02/20 08/01/21 Jovita Daly MD [address] [place] [address] Assigned Surgical Provider 05/02/20 10/04/20 Alexander López MD [address] [facility] 106 [place], [place] [address]474 Assigned Sleep Provider 05/02/20 11/15/20 Jese Doyle MD 909 [place], [place] [address] Assigned Pulmonology Provider 05/02/20 04/11/21 Roshni Nascimento, RN Personal Advocate & Liaison (PAL) Family Medicine 08/18/20 Johana Groves, [facility] [address] [facility] [address] [place], [place] [address] Pharmacist Pharmacist 08/28/20 11/26/20 Kiet Swain MD [address] [place], [place] [address] [place] [address] Referring Physician Psychiatry 09/19/20 Winsome Pike, VIDHI C WPF DEVELOPER [address] [place] [address] Nurse Practitioner Psychiatry 09/19/20 Tori Hines, [facility] 2450 [place] [address] Urban Planning Professor Urban Planning Professor - Clinical 09/19/20 Miranda Queen [facility] [address] [place] [address] Pharmacist Pharmacist 11/12/20 Winsome Pike APRN C WPF DEVELOPER [address] [place] [address] Assigned Behavioral Health Provider 01/04/21 07/02/22 Marisel Armando MD [address] [place] [address] 445415 Gastroenterology 02/05/21 Marisel Armando MD [address] [place] [address] 490275 Assigned Gastroenterology Provider 03/08/21 12/24/22 Inderjit Ugalde MD [address] [facility] 300 [place] [address] Assigned Surgical Provider 02/15/21 08/20/22 Wesley Barrett MD 420 [facility] 96 [place], [place] [address] Assigned Neuroscience Provider 05/10/21 Charles Jaramillo PA-C [address] [address] Assigned Musculoskeletal Provider 04/26/21 10/15/22 Miranda Queen [facility] [address] [place] [address] Assigned MTM Pharmacist 12/05/21 03/26/22 [place] [address] [place] [address] Assigned PCP 01/23/22 05/14/22 Miranda Queen [facility] [address] [place] [address] Assigned MTM Pharmacist 04/07/22 05/14/22 [place] [address] [place] [address] Assigned PCP 05/15/22 Katiana Read MD [address] [place] [address]1580 Assigned Endocrinology Provider 06/19/22 [place] PhD [address] [place] [address] Assigned Behavioral Health Provider 07/03/22 12/31/22 Deena Garza, FIRE MANAGEMENT TECHNICIAN C WPF DEVELOPER [address] [place] 78[address]57 Assigned Pain Medication Provider 07/19/22 10/29/22 Mary Del Cid, RAFAEL [address] [place] [address] Nurse Practitioner Nurse Practitioner 10/18/22 Elham Stack, [facility] 3033 [place] [address] Pharmacist Pharmacist 10/19/22 Emerita Potter, [facility] Clinic Ocean Clam Boat Captain Urban Planning Professor - Clinical 10/29/22 11/02/22 Mary Del Cid, BARKING MACHINE FEEDER [address] [place] [address] Assigned Pain Medication Provider 10/30/22 12/03/22 Michelle Guzman, DPM, Podiatry/Foot and Ankle Surgery [address] [place] [address] Assigned Musculoskeletal Provider 10/16/22 04/08/23 [place] [address] [place] [address] Assigned Pain Medication Provider 12/04/22 04/01/23 Mary Del Cid, RAFAEL [address] [place] [address] Nurse Practitioner Nurse Practitioner 01/17/23 01/17/23 Aubrey Jones MD [address] [place] [address] Cardiovascular Disease 03/28/23 Blanquita Morales Wrecker Operator Diabetes Education 04/25/23 Aubrey Jones MD [address] [place] [address] Assigned Heart and Vascular Provider 05/07/23 documented as of this encounter
--- OUTSIDE RECORDS SUMMARY | 2023-08-03 12:58 | XMS_ITS | Encounter Summary ---
Author Name Unknown Organization [facility] Address [address] [place] [address]. [place] [address] Care Team Providers Care Book Publisher Name Role Phone Len Adhikari MD Primary Care Provider Jovany Gonzalez MD Unavailable CrissyStaci jeong LINUX ENGINEER Unavailable [phone] Len Adhikari MD Unavailable Reanna Smith [address] Unavailable Jamshid Granados MD Unavailable Katiana Read MD Unavailable [phone] Jovita Daly MD Unavailable +[phone] Alexander López MD Unamarcelina lable Jese Doyle MD Unavailable +[phone] Roshni Nascimento RN Unavailable Unavailable Johana Groves [facility] Unavailable Kiet Swain MD Unavailable [phone] Winsome Pike APRN PHARMACY INTAKE COORDINATOR Unavailable +[phone] Tori Hines [facility] Unavailable Miranda Queen [facility] Unavailable Unavailable Winsome Pike APRN PHARMACY INTAKE COORDINATOR Unavailable Marisel Armando MD Unavailable Marisel Armando MD Unavailable Inderjit Ugalde MD Unavailable [phone] Wesley Barrett MD Unavailable +[phone] EllaCharles Michele GEIGER Unavailable +[phone] Miranda Queen [facility] Unavailable Unavailable Leeann Rinaldi MD Unavailable Miranda Queen [facility] Unavailable Unavailable Dyan Fuentes MD Primary Care Provider [phone] Dyan Fuentes MD Unavailable [phone] Katiana Read MD Unavailable [phone] Meme Singleton PhD Unavailable [phone] Deena Garza APRN PHARMACY INTAKE COORDINATOR Unavailable +[phone] Mary Del Cid NP Unavailable + [phone] Elham Stack [facility] Unavailable Emerita Potter [facility] Unavailable [phone] Mary Del Cid NP Unavailable + [phone] Michelle Guzman DPM, Podiatry /Foot and Ankle Surgery Unavailable Dyan Fuentes MD Unavailable [phone] Mary Del Cid NP Unavailable [phone] Aubrey Jones MD Unavailable [phone] Blanquita Morales Unavailable Unavailable Aubrey Jones MD Unavailable [phone] Encounter Details Date Type Department Care Team (Late st Contact Info) Description 12/12/2019 [facility] [address] [place] [address] Rachelle Benites CMA Social History [...] st Contact Info) Description 08/18/2023 3:00 PM ACCOUNT SERVICE ASSOCIATE Office Visit [facility] [address] [place] [address] Katiana Read MD [address] [place] [address] [address] [place] [address] documented as of this encounter Visit Diagnoses Not on filedocumented in this encounter Additional Health Concerns Infection Onset Date Last Indicated Resolved Time Rule Out COVID-19 08/19/2020 08/19/2020 08/19/2020 4:40 PM ACCOUNT SERVICE ASSOCIATE Rule Out C-difficile 02/27/2021 02/27/2021 021 6:10 [...] as of this encounter Care Teams Book Publisher Relationship Specialty Start Date End Date Len Adhikari MD PCP - General Family Practice 11/08/16 05/09/22 [place] [address] [place] [address] PCP - General Family Medicine 05/18/22 Jovany Gonzalez MD [facility] 6600 [facility] 605 [place], [place] 4[address] Orthopedics 02/15/17 Staci Woodward NP [facility] [address] [place], [place] [address] Nurse Practitioner Nurse Practitioner Psych/Mental Health 05/10/17 [place] [address] [facility] [place] [address] Assigned PCP 11/14/16 01/22/[address] [facility] [address] [place], [place] [address] Head Cashier Dietitian, Registered 07/25/19 [place] [address] [facility] 300 [place], [place] [address] Assigned Musculoskeletal Provider 05/02/20 09/13/20 Katiana Read MD [address] [facility] 200 [place] [address] Assigned Endocrinology Provider 05/02/20 08/01/21 Jovita Daly MD [address] [place] [address] Assigned Surgical Provider 05/02/20 10/04/20 Alexander López MD [address] [facility] 106 [place], [place] [address]394 Assigned Sleep Provider 05/02/20 11/15/20 Jese Doyle MD 909 [place], [place] 8[address]205 Assigned Pulmonology Provider 05/02/20 04/11/21 Roshni Nascimento, RN Personal Advocate & Liaison (PAL) Family Medicine 08/18/20 Johana Groves, [facility] [address] [facility] [address] [place], [place] [address] Pharmacist Pharmacist 08/28/20 11/26/20 Kiet Swain MD [address] [place], [place] [address] Referring Physician Psychiatry 09/19/20 Winsome Pike APRN PHARMACY INTAKE COORDINATOR [address] [place] [address] [phone] Nurse Practitioner Psychiatry 09/19/20 Tori Hines, [facility] 2450 [place], [place] [address] Insert Cutter Insert Cutter - Clinical 09/19/20 Miranda Queen [facility] [address] [place] [address] Pharmacist Pharmacist 11/12/20 Winsome Pike APRN PHARMACY INTAKE COORDINATOR [address] [place] [address] [phone] Assigned Behavioral Health Provider 01/04/21 07/02/22 Marisel Armando MD [address] [place] [address] 972135 Gastroenterology 02/05/21 Marisel Armando MD [address] [place] [address] 217045 Assigned Gastroenterology Provider 03/08/21 12/24/22 Inderjit Ugalde MD [address] [facility] 300 [place] [address] Assigned Surgical Provider 02/15/21 08/20/22 Wesley Barrett MD 420 [facility] 96 [place], [place] [address] Assigned Neuroscience Provider 05/10/21 Charles Jaramillo PA-C [address] [address] Assigned Musculoskeletal Provider 04/26/21 10/15/22 Miranda Queen [facility] [address] [place] [address] Assigned MTM Pharmacist 12/05/21 03/26/22 [place] [address] [place] [address] Assigned PCP 01/23/22 05/14/22 Miranda Queen [facility] [address] [facility] [place] [address] Assigned MTM Pharmacist 04/07/22 05/14/22 [place] [address] [place] [address] Assigned PCP 05/15/22 Katiana Read MD [address] 3713[address] Assigned Endocrinology Provider 06/19/22 Meme Singleton, PhD [address] [place] [address] Assigned Behavioral Health Provider 07/03/22 12/31/22 Deena Garza, SUPERVISOR BIT AND SHANK DEPARTMENT PHARMACY INTAKE COORDINATOR [address] [place] [address] Assigned Pain Medication Provider 07/19/22 10/29/22 Mary Del Cid, RAFAEL [address] [place] [address] Nurse Practitioner Nurse Practitioner 10/18/22 Elham Stack, [facility] 3033 [facility] [place] [address] Pharmacist Pharmacist 10/19/22 Emerita Potter, [facility] Clinic Bioinformatics Scientist Insert Cutter - Clinical 10/29/22 11/02/22 [place] [address] [place] [address] Assigned Pain Medication Provider 10/30/22 12/03/22 Michelle Guzman, DPM, Podiatry/Foot and Ankle Surgery [address] [place] [address] Assigned Musculoskeletal Provider 10/16/22 04/08/23 [place] [address] [place] [address] Assigned Pain Medication Provider 12/04/22 04/01/23 Mary Del Cid, RAFAEL [address] [place] [address] Nurse Practitioner Nurse Practitioner 01/17/23 01/17/23 Aubrey Jones MD [address] [place] [address] Cardiovascular Disease 03/28/23 Blanquita Morales Head Cashier Diabetes Education 04/25/23 Aubrey Jones MD [address] [place] [address] Assigned Heart and Vascular Provider 05/07/23 documented as of this encounter
--- OUTSIDE RECORDS SUMMARY | 2023-08-03 12:58 | XMS_ITS | Encounter Summary ---
Author Name Unknown Organization [facility] Address [address] [place] [address]. [place] [address] Care Team Providers Care Tactical Deception Plans Officer Name Role Phone Len Adhikari MD Primary Care Provider Jovany Gonzalez MD Unavailable CrissyStaci jeong CATTLE BROKER Unavailable [phone] Len Adhikari MD Unavailable Reanna Smith RD Unavailable Jamshid Granados MD Unavailable Katiana Read MD Unavailable [phone] Jovita Daly MD Unavailable +[phone] Alexander López MD Unamarcelina lable Jese Doyle MD Unavailable [phone] Roshni Nascimento RN Unavailable Unavailable Johana Groves [facility] Unavailable Kiet Swain MD Unavailable Winsome Pike APRN GEOSPATIAL TECHNICIAN Unavailable [phone] Tori Hines [facility] Unavailable Miranda Queen [facility] Unavailable Unavailable Winsome Pike APRN GEOSPATIAL TECHNICIAN Unavailable Marisel Armando MD Unavailable Marisel Armando MD Unavailable Inderjit Ugalde MD Unavailable [phone] Wesley Barrett MD Unavailable +[phone] EllaCharles Michele GEIGER Unavailable +[phone] Miranda Queen [facility] Unavailable Unavailable Leeann Rinaldi MD Unavailable Miranda Queen [facility] Unavailable Unavailable Dyan Fuentes MD Primary Care Provider [phone] Dyan Fuentes MD Unavailable [phone] Katiana Read MD Unavailable [phone] Meme Singleton PhD Unavailable [phone] Deena Garza APRN GEOSPATIAL TECHNICIAN Unavailable +[phone] Mary Del Cid NP Unavailable + [phone] Elham Stack [facility] Unavailable Emerita Potter [facility] Unavailable +[phone] Mary Del Cid NP Unavailable + [phone] Michelle Guzman DPM, Podiatry /Foot and Ankle Surgery Unavailable Dyan Fuentes MD Unavailable [phone] Mary Del Cid NP Unavailable [phone] Aubrey Jones MD Unavailable [phone] Blanquita Morales Unavailable Unavailable Aubrey Jones MD Unavailable [phone] Encounter Details Date Type Department Care Team (Late st Contact Info) Description 11/27/2019 My[facility] Medical Advice [address] [place] [address] Rachelle Benites CMA Social History [...] cx due to illness. Message sent via LiveRail. PATRICK Chu [facility] [place] * Telephone Encounter - Rachelle Benites CMA - 11/28/2019 12:34 PM CDT Message sent via LiveRail. PATRICK Chu [facility] [place] documented in this encounter Plan of Treatment Upcoming Encounters Date Type Department Care Team (Late st Contact Info) Description 08/18/2023 3:00 PM MANAGER OF APPLICATION DEVELOPMENT Office Visit [facility] [address] [place] [address] Katiana Read MD [address] [place] [address] documented as of this encounter Visit Diagnoses Not on filedocumented in this encounter Additional Health Concerns Infection Onset Date Last Indicated Resolved Time Rule Out COVID-19 08/19/2020 08/19/2020 08/19/2020 4:40 PM MANAGER OF APPLICATION DEVELOPMENT Rule Out C-difficile 02/27/2021 02/27/2021 021 6:10 [...] documented as of this encounter Care Teams Tactical Deception Plans Officer Relationship Specialty Start Date End Date Len Adhikari MD PCP - General Family Practice 11/08/16 05/09/22 [place] [address] [place] [address] PCP - General Family Medicine 05/18/22 Jovany Gonzalez MD [facility] 6600 [facility] [address] [place] [address] Orthopedics 02/15/17 Staci Woodward NP [facility] [address] [place], [place] [address] Nurse Practitioner Nurse Practitioner Psych/Mental Health 05/10/17 [place] [address] [place] [address] Assigned PCP 11/14/16 01/22/22 Reanna Smith, RD [facility] [address] [place] [address] Lab Asst Dietitian, Registered 07/25/19 [place] [address] [facility] [address] [place], [place] [address] Assigned Musculoskeletal Provider 05/02/20 09/13/20 Katiana Read MD [address] 200 [place], [place] [address] Assigned Endocrinology Provider 05/02/20 08/01/21 Jovita Daly MD [address] [place], [place] [address] Assigned Surgical Provider 05/02/20 10/04/20 Alexander López MD 606 [facility] 106 [place], [place] 509444 Assigned Sleep Provider 05/02/20 11/15/20 Jese Doyle MD 909 [place] [address] Assigned Pulmonology Provider 05/02/20 04/11/21 Roshni Nascimento RN Personal Advocate & Liaison (PAL) Family Medicine 08/18/20 Johana Groves [facility] [place] [address] [place] [address] Pharmacist Pharmacist 08/28/20 11/26/20 Kiet Swain MD [address] [place] [address] NG15 [place] [address] Referring Physician Psychiatry 09/19/20 Winsome Pike APRN GEOSPATIAL TECHNICIAN [address] [place] [address] Nurse Practitioner Psychiatry 09/19/20 Tori Hines [facility] [address] [place] [address] Reconnaissance Crewmember Reconnaissance Crewmember - Clinical 09/19/20 Miranda Queen [facility] [id number] [place] [address] Pharmacist Pharmacist 11/12/20 Winsome Pike APRN GEOSPATIAL TECHNICIAN [address] [place] [address] Assigned Behavioral Health Provider 01/04/21 07/02/22 Marisel Armando MD [address] [place] [address] Gastroenterology 02/05/21 Marisel Armando MD [address] [place] [address] Assigned Gastroenterology Provider 03/08/21 12/24/22 Inderjit Ugalde MD [address] [address] Assigned Surgical Provider 02/15/21 08/20/22 Wesley Barrett MD 420 [facility] 96 [place] [address] Assigned Neuroscience Provider 05/10/21 Charles Jaramillo PA-C 6545 [facility] 450 [place] [address] Assigned Musculoskeletal Provider 04/26/21 10/15/22 [facility] [address] [place] [address] Assigned MTM Pharmacist 12/05/21 03/26/22 [place] [address] [place] [address] Assigned PCP 01/23/22 05/14/22 [facility] [address] [place] [address] Assigned MTM Pharmacist 04/07/22 05/14/22 [place] [address] [place] [address] Assigned PCP 05/15/22 Katiana Read MD [address] [place] [address] 200 [place] [address] Assigned Endocrinology Provider 06/19/22 Meme Singleton[place] PhD [address] [place] [id number] Assigned Behavioral Health Provider 07/03/22 12/31/22 Deena Garza APRN GEOSPATIAL TECHNICIAN [address] [place] [id number] Assigned Pain Medication Provider 07/19/22 10/29/22 [place] [address] [address] [place] [address] Nurse Practitioner Nurse Practitioner 10/18/22 Elham Stack, [facility] [address] [facility] [place] [address] Pharmacist Pharmacist 10/19/22 Emerita Potter, [facility] Clinic Mixer Whipped Topping Reconnaissance Crewmember - Clinical 10/29/22 11/02/22 [place] [address] [address] [place] [address] Assigned Pain Medication Provider 10/30/22 12/03/22 Michelle Guzman DPM, Podiatry/Foot and Ankle Surgery [address] [place] [address] Assigned Musculoskeletal Provider 10/16/22 04/08/23 [place] [address] [place] [address] Assigned Pain Medication Provider 12/04/22 04/01/23 [place] [address] [address] [place] [address] Nurse Practitioner Nurse Practitioner 01/17/23 01/17/23 Aubrey Jones MD [address] [place] [address] Cardiovascular Disease 03/28/23 Blanquita Morales Lab Asst Diabetes Education 04/25/23 Aubrey Jones MD [address] [place] [address] Assigned Heart and Vascular Provider 05/07/23 documented as of this encounter
--- OUTSIDE RECORDS SUMMARY | 2023-08-03 12:58 | XMS_ITS | Encounter Summary ---
Author Name Unknown Organization [facility] Address [address] [place] [address]. [place] [address] Care Team Providers Care Service Center Coordinator Name Role Phone Len Adhikari MD Primary Care Provider Jovany Gonzalez MD Unavailable [phone] CrissyStaci jeong RECREATIONAL COUNSELOR Unavailable [phone] Len Adhikari MD Unavailable [phone] Unavailable Jamshid Granados MD Unavailable Katiana Read MD Unavailable [phone] Jovita Daly MD Unavailable [phone] Alexander López MD Unamarcelina lable Jese Doyle MD Unavailable [phone] Roshni Nascimento RN Unavailable Unavailable Johana Groves [facility] Unavailable [phone] Kiet Swain MD Unavailable [phone] Winsome Pike APRN FOUNDRY HAND Unavailable [phone] Tori Hines [facility] Unavailable Miranda Queen [facility] Unavailable Unavailable Winsome Pike APRN FOUNDRY HAND Unavailable Marisel Armando MD Unavailable Marisel Armando MD Unavailable Inderjit Ugalde MD Unavailable [phone] Wesley Barrett MD Unavailable +[phone] EllaCharles jimenez Michele GEIGER Unavailable +[phone] Miranda Queen [facility] Unavailable Unavailable Leeann Rinaldi MD Unavailable Miranda Queen [facility] Unavailable Unavailable Dyan Fuentes MD Primary Care Provider [phone] Dyan Fuentes MD Unavailable [phone] Katiana Read MD Unavailable [phone] Meme Singleton PhD Unavailable [phone] Deena Garza APRN FOUNDRY HAND Unavailable +[phone] Mary Del Cid NP Unavailable + [phone] Elham Stack [facility] Unavailable [phone] Emerita Potter [facility] Unavailable [phone] Mary Del Cid NP Unavailable + [phone] Michelle Guzman DPM, Podiatry /Foot and Ankle Surgery Unavailable Dyan Fuentes MD Unavailable [phone] Mary Del Cid NP Unavailable [phone] Aubrey Jones MD Unavailable [phone] Blanquita Morales Unavailable Unavailable Aubrey Jones MD Unavailable [phone] Encounter Details Date Type Department Care Team (Late st Contact Info) Description 09/11/2019 [facility] [address] [address] [place] [address] [place] [address] Social History Tobacco Use Types Packs/Day Years [...] st Contact Info) Description 08/18/2023 3:00 PM ASSURANCE OFFICER Office Visit [facility] [address] [facility] [address] [place] [address] Katiana Read MD [address] [place] [address] documented as of this encounter Visit Diagnoses Not on filedocumented in this encounter Additional Health Concerns Infection Onset Date Last Indicated Resolved Time Rule Out COVID-19 08/19/2020 08/19/2020 08/19/2020 4:40 PM ASSURANCE OFFICER Rule Out C-difficile 02/27/2021 02/27/2021 021 [...] as of this encounter Care Teams Service Center Coordinator Relationship Specialty Start Date End Date Len Adhikari MD PCP - General Family Practice 11/08/16 05/09/22 [place] [address] [place] [address] PCP - General Family Medicine 05/18/22 Jovany Gonzalez MD [facility] 6600 [facility] 605 [place], [place] [address] Orthopedics 02/15/17 Staci Woodward NP [facility] [address] [place], [place] [address] Nurse Practitioner Nurse Practitioner Psych/Mental Health 05/10/17 [place] [address] [facility] [place] [address] Assigned PCP 11/14/16 01/22/[address] [facility] [address] [place], [place] [address] Hr Business Partner Dietitian, Registered 07/25/19 [place] [address] [facility] 300 [place], [place] 57[address] Assigned Musculoskeletal Provider 05/02/20 09/13/20 Katiana Read MD [address] [facility] 200 [place], [place] [address] Assigned Endocrinology Provider 05/02/20 08/01/21 Jovita Daly MD [address] [place], [place] [address] Assigned Surgical Provider 05/02/20 10/04/20 Alexander López MD 606 24[facility] 106 [place], [place] 149144 Assigned Sleep Provider 05/02/20 11/15/20 Jese Doyle MD 909 [place], [place] 3124[address] Assigned Pulmonology Provider 05/02/20 04/11/21 Roshni Nascimento, RN Personal Advocate & Liaison (PAL) Family Medicine 08/18/20 Johana Groves, [facility] [address] [facility] [place] [address] Pharmacist Pharmacist 08/28/20 11/26/20 Kiet Swain MD [address] [place], [place] [address] [place], [place] [address] Referring Physician Psychiatry 09/19/20 Winsome Pike APRN FOUNDRY HAND [address] [address] Nurse Practitioner Psychiatry 09/19/20 Tori Hines, [facility] [address] [place] [address] [place] 519[address] Independent Film Maker Independent Film Maker - Clinical 09/19/20 Miranda Queen [facility] [address] [place] [address] Pharmacist Pharmacist 11/12/20 Winsome Pike APRN FOUNDRY HAND [facility] [address] 561784 Assigned Behavioral Health Provider 01/04/21 07/02/22 Marisel Armando MD [address] [place] [address] [id number] Gastroenterology 02/05/21 Marisel Armando MD [address] [place] [address]73505 Assigned Gastroenterology Provider 03/08/21 12/24/22 Inderjit Ugalde MD 303 E [facility] 300 [place], [place] [address] Assigned Surgical Provider 02/15/21 08/20/22 Wesley Barrett MD 420 [facility] 96 [place] [address] Assigned Neuroscience Provider 05/10/21 Charles Jaramillo PA-C [address] [address] Assigned Musculoskeletal Provider 04/26/21 10/15/22 [place] [address] [place] [address] Assigned MTM Pharmacist 12/05/21 03/26/22 [place] [address] [place] [address] Assigned PCP 01/23/22 05/14/22 Miranda Queen [facility] [address] [place] [address] Assigned MTM Pharmacist 04/07/22 05/14/22 [place] [address] [place] [address] Assigned PCP 05/15/22 Katiana Read MD [address] [place] [address] Assigned Endocrinology Provider 06/19/22 Meme Singleton, PhD [address] [place] [address] Assigned Behavioral Health Provider 07/03/22 12/31/22 Deena Garza APRN FOUNDRY HAND [address] [place] [address] Assigned Pain Medication Provider 07/19/22 10/29/22 Mary Del Cid, RAFAEL [address] [place] [address] Nurse Practitioner Nurse Practitioner 10/18/22 Elham Stack, [facility] 3033 [place] [address] Pharmacist Pharmacist 10/19/22 Emerita Potter, [facility] Clinic Synchro Assembler Independent Film Maker - Clinical 10/29/22 11/02/22 [place] [address] [address] [place] [address] Assigned Pain Medication Provider 10/30/22 12/03/22 Michelle Guzman, DPM, Podiatry/Foot and Ankle Surgery [address] [place] [address] Assigned Musculoskeletal Provider 10/16/22 04/08/23 [place] [address] [place] [address] Assigned Pain Medication Provider 12/04/22 04/01/23 [place] [address] [place] [address] Nurse Practitioner Nurse Practitioner 01/17/23 01/17/23 Aubrey Jones MD [address] [place] [address] Cardiovascular Disease 03/28/23 Blanquita Morales Hr Business Partner Diabetes Education 04/25/23 Aubrey Jones MD [address] [place] [address] Assigned Heart and Vascular Provider 05/07/23 documented as of this encounter
--- OUTSIDE RECORDS SUMMARY | 2023-08-03 12:58 | XMS_ITS | Encounter Summary ---
Author Name Unknown Organization [facility] Address [address] [place] [address]. [place] [address] Care Team Providers Care Instructor Pilot Name Role Phone Len Adhikari MD Primary Care Provider Jovany Gonzalez MD Unavailable [phone] CrissyStaci jeong GIS PHYSICAL SCIENTIST Unavailable [phone] Len Adhikari MD Unavailable Reanna Smith [address] Unavailable [phone] Jamshid Granados MD Unavailable Katiana Read MD Unavailable [phone] Jovita Daly MD Unavailable [phone] Alexander López MD Unamarcelina lable Jese Doyle MD Unavailable [phone] Roshni Nascimento RN Unavailable Unavailable Johana Groves [facility] Unavailable Kiet Swain MD Unavailable [phone] Winsome Pike APRN PROPAGATION MANAGER Unavailable +[phone] Tori Hines [facility] Unavailable Miranda Queen [facility] Unavailable Unavailable Winsome Pike APRN PROPAGATION MANAGER Unavailable Marisel Armando MD Unavailable Marisel Armando MD Unavailable Inderjit Ugalde MD Unavailable Wesley Barrett MD Unavailable [phone] EllaCharles Michele GEIGER Unavailable +[phone] Miranda Queen [facility] Unavailable Unavailable Leeann Rinaldi MD Unavailable Miranda Queen [facility] Unavailable Unavailable Dyan Fuentes MD Primary Care Provider [phone] Dyan Fuentes MD Unavailable [phone] Katiana Read MD Unavailable [phone] Meme Singleton PhD Unavailable [phone] Deena Garza APRN PROPAGATION MANAGER Unavailable [phone] Mary Del Cid NP Unavailable + [phone] Elham Stack [facility] Unavailable Emerita Potter [facility] Unavailable [phone] Mary Del Cid NP Unavailable + [phone] Michelle Guzman DPM, Podiatry /Foot and Ankle Surgery Unavailable Dyan Fuentes MD Unavailable [phone] Mary Del Cid NP Unavailable [phone] Aubrey Jones MD Unavailable [phone] Blanquita Morales Unavailable Unavailable Aubrey Jones MD Unavailable [phone] Encounter Details Date Type Department Care Team (Late st Contact Info) Description 11/15/2019 [facility] [address] [facility] [address] [place] [address] Rachelle Benites, [facility] Social History Tobacco Use Types Packs/Day [...] st Contact Info) Description 08/18/2023 3:00 PM CERT PHARMACY TECH Office Visit [facility] [address] [facility] [address] [place] [phone] Katiana Read MD [address] [address] [place] [address] documented as of this encounter Visit Diagnoses Not on filedocumented in this encounter Additional Health Concerns Infection Onset Date Last Indicated Resolved Time Rule Out COVID-19 08/19/2020 08/19/2020 08/19/2020 4:40 PM CERT PHARMACY TECH Rule Out C-difficile 02/27/2021 02/27/2021 021 6:10 [...] as of this encounter Care Teams Instructor Pilot Relationship Specialty Start Date End Date Len Adhikari MD PCP - General Family Practice 11/08/16 05/09/22 [place] [address] [place] [address] PCP - General Family Medicine 05/18/22 Jovany Gonzalez MD [facility] 6600 [facility] 605 [place] [address] Orthopedics 02/15/17 Staci Woodward NP [place] [address] [place] [address] Nurse Practitioner Nurse Practitioner Psych/Mental Health 05/10/17 [place] [address] [facility] [place] [address] Assigned PCP 11/14/16 01/22/[address] [facility] [address] [place] [address] Economic Analyst Dietitian, Registered 07/25/19 [place] [address] [facility] 300 [place] [address] Assigned Musculoskeletal Provider 05/02/20 09/13/20 Katiana Read MD [address] [place] [address] 200 [place] [address] Assigned Endocrinology Provider 05/02/20 08/01/21 Jovita Daly MD [address] [place] [address] Assigned Surgical Provider 05/02/20 10/04/20 Alexander López MD [address] [facility] 106 [place], [place] [address] Assigned Sleep Provider 05/02/20 11/15/20 Jese Doyle MD 909 [place], [place] 447455 Assigned Pulmonology Provider 05/02/20 04/11/21 Roshni Nascimento, RN Personal Advocate & Liaison (PAL) Family Medicine 08/18/20 Johana Groves, [facility] [facility] [place] [address] Pharmacist Pharmacist 08/28/20 11/26/20 Kiet Swain MD [address] [place] [address] NG[address] [place], [place] [address] Referring Physician Psychiatry 09/19/20 Winsome Pike APRN PROPAGATION MANAGER [address] [place] [address] Nurse Practitioner Psychiatry 09/19/20 Tori Hines, [facility] 2450 [place] [address] Export Packer Export Packer - Clinical 09/19/20 Miranda Queen [facility] [address] [place] [address] Pharmacist Pharmacist 11/12/20 Winsome Pike APRN CNP [address] [address] Assigned Behavioral Health Provider 01/04/21 07/02/22 Marisel Armando MD [address] [place] [address]6815 Gastroenterology 02/05/21 Marisel Armando MD [address] [place] [address] 619095 Assigned Gastroenterology Provider 03/08/21 12/24/22 Inderijt Ugalde MD [address] [facility] 300 [place] [address] Assigned Surgical Provider 02/15/21 08/20/22 Wesley Barrett MD 420 [facility] 96 [place] [address] Assigned Neuroscience Provider 05/10/21 Charles Jaramillo PA-C [address] [address] Assigned Musculoskeletal Provider 04/26/21 10/15/22 Miranda Queen [facility] [address] [facility] [place] [address] Assigned MTM Pharmacist 12/05/21 03/26/22 [place] [address] [place] [address] Assigned PCP 01/23/22 05/14/22 Miranda Queen, [facility] [address] [facility] [place] [address] Assigned MTM Pharmacist 04/07/22 05/14/22 [place] [address] [place] [address] Assigned PCP 05/15/22 Katiana Read MD [address] 764220 Assigned Endocrinology Provider 06/19/22 Meme Singleton[place] PhD [address] [place] [address]47 Assigned Behavioral Health Provider 07/03/22 12/31/22 Deena Garza, [employer] SUPERINTENDENT PROPAGATION MANAGER [address] [place] [address]277 Assigned Pain Medication Provider 07/19/22 10/29/22 Mary Del Cid, RAFAEL [address] [place] [place] [address] Nurse Practitioner Nurse Practitioner 10/18/22 Elham Stack, [facility] [address] [place] [address] Pharmacist Pharmacist 10/19/22 Emerita Potter, [facility] Clinic Hand Counter Export Packer - Clinical 10/29/22 11/02/22 [place] [address] [place] [address] Assigned Pain Medication Provider 10/30/22 12/03/22 Michelle Guzman, DPM, Podiatry/Foot and Ankle Surgery [address] [place] [place] [address] Assigned Musculoskeletal Provider 10/16/22 04/08/23 [place] [address] [place] [address] Assigned Pain Medication Provider 12/04/22 04/01/23 [place] [address] [place] [address] Nurse Practitioner Nurse Practitioner 01/17/23 01/17/23 Aubrey Jones MD [address] [place] [address] Cardiovascular Disease 03/28/23 Blanquita Morales Economic Analyst Diabetes Education 04/25/23 Aubrey Jones MD [address] [place] [address] Assigned Heart and Vascular Provider 05/07/23 documented as of this encounter
--- OUTSIDE RECORDS SUMMARY | 2023-08-03 12:58 | XMS_ITS | Encounter Summary ---
Author Name Unknown Organization [facility] Address [address] [place] [address]. [place] [address] Care Team Providers Care Canvas Marker Name Role Phone Len Adhikari MD Primary Care Provider Jovany Gonzalez MD Unavailable CrissyStaci jeong DIRECTOR OF GOVERNMENT SALES Unavailable [phone] Len Adhikari MD Unavailable Reanna Smith RD Unavailable Jamshid Granados MD Unavailable +[phone] Katiana Read MD Unavailable +[phone] Jovita Daly MD Unavailable +[phone] Alexander López MD Unamarcelina lable Jese Doyle MD Unavailable +[phone] Roshni Nascimento RN Unavailable Unavailable Johana Groves [facility] Unavailable Kiet Swain MD Unavailable [phone] Winsome Pike APRN FUNERAL WORKERS Unavailable +[phone] Tori Hines [facility] Unavailable Miranda Queen [facility] Unavailable Unavailable Winsome Pike APRN FUNERAL WORKERS Unavailable Marisel Armando MD Unavailable Marisel Armando MD Unavailable Inderjit Ugalde MD Unavailable [phone] Wesley Barrett MD Unavailable +[phone] EllaCharles Michele GEIGER Unavailable +[phone] [facility] Unavailable Unavailable Leeann Rinaldi MD Unavailable Miranda Queen [facility] Unavailable Unavailable Dyan Fuentes MD Primary Care Provider +[phone] Dyan Fuentes MD Unavailable +[phone] Katiana Read MD Unavailable [phone] Meme Singleton PhD Unavailable +[phone] Deena Garza APRN [employer]ERAL WORKERS Unavailable +[phone] Mary Del Cid NP Unavailable + [phone] [facility] Unavailable [phone] Emerita Potter [facility] Unavailable +[phone] Mary Del Cid NP Unavailable + [phone] Michelle Guzman DPM, Podiatry /Foot and Ankle Surgery Unavailable Dyan Fuentes MD Unavailable +[phone] Mary Del Cid NP Unavailable + [phone] Aubrey Jones MD Unavailable +[phone] Blanquita Morales Unavailable Unavailable Aubrey Jones MD Unavailable +[phone] Encounter Details Date Type Department Care Team (Late st Contact Info) Description 09/06/2019 [facility] [address] [address] PusalaAlexander saha MD [address] [place] [address] Social History Tobacco Use Types Packs/Day Years [...] st Contact Info) Description 08/18/2023 3:00 PM BREASTFEEDING PROGRAM COORDINATOR Office Visit [facility] [address] [facility] [address] [place] [address] Katiana Read MD [address] [facility] 200 [place], [place] [address] documented as of this encounter Visit Diagnoses Not on filedocumented in this encounter Additional Health Concerns Infection Onset Date Last Indicated Resolved Time Rule Out COVID-19 08/19/2020 08/19/2020 08/19/2020 4:40 PM BREASTFEEDING PROGRAM COORDINATOR Rule Out C-difficile 02/27/2021 02/27/2021 021 [...] documented as of this encounter Care Teams Canvas Marker Relationship Specialty Start Date End Date Len Adhikari MD PCP - General Family Practice 11/08/16 05/09/22 [place] [address] [place] [address] PCP - General Family Medicine 05/18/22 Jovany Gonzalez MD [facility] [address]00 [facility] 605 [place], [place] [address] Orthopedics 02/15/17 Staci Woodward NP [facility] [address] [place], [place] 0[address] Nurse Practitioner Nurse Practitioner Psych/Mental Health 05/10/17 [place] [address] [place] [address] Assigned PCP 11/14/16 01/22/[address] [facility] [address] [place] [address] Enamel Drier Dietitian, Registered 07/25/19 [place] [address] [facility] 300 [place], [place] 741817 Assigned Musculoskeletal Provider 05/02/20 09/13/20 Katiana Read MD [address] [facility] 200 [place], [place] [address] Assigned Endocrinology Provider 05/02/20 08/01/21 Jovita Daly MD [address] [place], [place] 53884[address] Assigned Surgical Provider 05/02/20 10/04/20 Alexander López MD [address] [facility] 106 [place], [place] 4[address]64 Assigned Sleep Provider 05/02/20 11/15/20 Jese Doyle MD 909 [place], [place] 25[address] Assigned Pulmonology Provider 05/02/20 04/11/21 Roshni Nascimento, RN Personal Advocate & Liaison (PAL) Family Medicine 08/18/20 Johana Groves, [facility] [address] [facility] [address] [place], [place] [id number] Pharmacist Pharmacist 08/28/20 11/26/20 Kiet Swain MD [address] [facility] [address] [place], [place] [address] Referring Physician Psychiatry 09/19/20 Winsome Pike APRN [employer]ERAL WORKERS [address] [place] [address] [phone] Nurse Practitioner Psychiatry 09/19/20 Tori Hines, [facility] 2450 [place] [address] Steel Barrel Reamer Steel Barrel Reamer - Clinical 09/19/[address] [facility] [address] [place] [address] Pharmacist Pharmacist 11/12/20 Winsome Pike APRN FUNERAL WORKERS [address] [place] [address] [id number] Assigned Behavioral Health Provider 01/04/21 07/02/22 Marisel Armando MD [address] [place] [address] [phone] Gastroenterology 02/05/21 Marisel Armando MD [address] [place] [address] 494255 Assigned Gastroenterology Provider 03/08/21 12/24/22 Idnerjit Ugalde MD [address] [phone] Assigned Surgical Provider 02/15/21 08/20/22 Wesley Barrett MD 420 [facility] 96 [place], [place] 96[address] Assigned Neuroscience Provider 05/10/21 Charles Jaramillo PA-C [address] [facility] [address] 477[address] Assigned Musculoskeletal Provider 04/26/21 10/15/[address] [facility] [address] [place] [address] Assigned MTM Pharmacist 12/05/21 03/26/22 [place] [address] [place] [address] Assigned PCP 01/23/22 05/14/[address] [facility] [address] [place] [address] Assigned MTM Pharmacist 04/07/22 05/14/22 [place] [address] [place] [address] Assigned PCP 05/15/22 Katiana Read MD [address] [place] [address] Assigned Endocrinology Provider 06/19/22 Meme Singleton[place] PhD [address] [place] [address] Assigned Behavioral Health Provider 07/03/22 12/31/22 Deena Garza APRN FUNERAL WORKERS [address] [place] [address] Assigned Pain Medication Provider 07/19/22 10/29/22 Mray Del Cid, RAFAEL [address] [place] [address] Nurse Practitioner Nurse Practitioner 10/18/22 Elham Stack, [facility] 30[address] [place] [address] Pharmacist Pharmacist 10/19/22 Emerita Potter, [facility] Clinic Assortment Planner Steel Barrel Reamer - Clinical 10/29/22 11/02/22 [place] [address] [place] [address] Assigned Pain Medication Provider 10/30/22 12/03/22 Michelle Guzman, DPM, Podiatry/Foot and Ankle Surgery [address] [place] [address] Assigned Musculoskeletal Provider 10/16/22 04/08/23 [place] [address] [place] [address] Assigned Pain Medication Provider 12/04/22 04/01/23 [place] [address] [place] [address] Nurse Practitioner Nurse Practitioner 01/17/23 01/17/23 Aubrey Jones MD [address] [place] [address] Cardiovascular Disease 03/28/23 Blanquita Morales Enamel Drier Diabetes Education 04/25/23 Aubrey Jones MD [address] [place] [address] Assigned Heart and Vascular Provider 05/07/23 documented as of this encounter
--- OUTSIDE RECORDS SUMMARY | 2023-08-03 12:59 | XMS_ITS | Encounter Summary ---
Author Name Unknown Organization [place] Address [address] [place] [address]. [place] [address] Care Team Providers Care Retail Manager In Training Name Role Phone Len Adhikari MD Primary Care Provider [phone] Jovany Gonzalez MD Unavailable [phone] [facility] Unavailable [phone] [facility] Unavailable Len Adhikari MD Unavailable Laurita Yang RN Unavailable Reanna Smith RD Unavailable [phone] Jamshid Granados MD Unavailable [phone] Katiana Read MD Unavailable +[phone] Jovita Daly MD Unavailable Alexander López MD Unavai lable Jese Doyle MD Unavailable [phone] Roshni Nascimento RN Unavailable Unavailable Johana Groves [facility] Unavailable [phone] Kiet Swain MD Unavailable [phone] Winsome Pike APRN MILK TRUCK DRIVER Unavailable [phone] Tori HinesSW Unavailable Miranda Queen [facility] Unavailable Unavailable Winsome Pike APRN MILK TRUCK DRIVER Unavailable [phone] Marisel Armando MD Unavailable Marisel Armando MD Unavailable Inderjit Ugalde MD Unavailable Wesley Barrett MD Unavailable [phone] Charles Jaramillo PA-C Unavailable +[phone] Miranda Queen [facility] Unavailable Unavailable Leeann Rinaldi MD Unavailable Miranda Queen [facility] Unavailable Unavailable Dyan Fuentes MD Primary Care Provider [phone] Dyan Fuentes MD Unavailable [phone] Katiana Read MD Unavailable +[phone] Meme Singleton PhD Unavailable +[phone] Deena Garza WAREHOUSE ASSOCIATE MILK TRUCK DRIVER Unavailable +[phone] Mary Del Cid NP Unavailable + [phone] Elham Stack [facility] Unavailable +[phone] Abbey Emerita M MEDICAL BILLING REPRESENTATIVE Unavailable +[phone] Mary Del Cid NP Unavailable + [phone] Michelle Guzman DPM, Podiatry /Foot and Ankle Surgery Unavailable Dyan Fuentes MD Unavailable +[phone] Mary Del Cid NP Unavailable + [phone] Aubrey Jones MD Unavailable [phone] Blanquita Morales Unavailable Unavailable Aubrey Jones MD Unavailable [phone] Encounter Details Date Type Department Care Team (Late st Contact Info) Description 01/26/2019 [facility] Medical Advice [facility] [address] [place] [address] Criselda Ma APRN MILK TRUCK DRIVER Social History Tobacco Use Types Packs/Day Years [...] st Contact Info) Description 08/18/2023 3:00 PM INCIDENT RESPONSE COORDINATOR Office Visit [facility] [address] [place] [address] Katiana Read MD [address] [place] [address] documented as of this encounter Visit Diagnoses Not on filedocumented in this encounter Additional Health Concerns Infection Onset Date Last Indicated Resolved Time Rule Out COVID-19 08/19/2020 08/19/2020 08/19/2020 4:40 PM INCIDENT RESPONSE COORDINATOR Rule Out C-difficile 02/27/2021 02/27/2021 021 [...] as of this encounter Care Teams Retail Manager In Training Relationship Specialty Start Date End Date Len Adhikari MD PCP - General Family Practice 11/08/16 05/09/22 [place] [address] [place] [address] PCP - General Family Medicine 05/18/22 Jovany Gonzalez MD [facility] 6600 [facility] 605 [place], [place] [address] Orthopedics 02/15/17 Staci Woodward, SEAT TRIMMER [facility] [address] [place] [employer], [place] [address] Nurse Practitioner Nurse Practitioner Psych/Mental Health 05/10/17 [facility] ([facility] ([place]) 02/16/18 04/12/19 [place] [address] [facility] [place] [address] Assigned PCP 11/14/16 01/22/22 Laurita Yang, RN Lead Card Mounter 01/08/19 9 Reanna Smith, RD [facility] [address] [place] [address] Nylon Machine Operator Dietitian, Registered 07/25/19 [place] [address] [facility] [address] [place], [place] [address] Assigned Musculoskeletal Provider 05/02/20 09/13/20 Katiana Read MD [address] [place], [place] [address] Assigned Endocrinology Provider 05/02/20 08/01/21 Jovita Daly MD [address] [facility] [place] [address] Assigned Surgical Provider 05/02/20 10/04/20 Alexander López MD [address] [place], [place] [address] Assigned Sleep Provider 05/02/20 11/15/20 Jese Doyle MD 909 [facility] [place], [place] [address] Assigned Pulmonology Provider 05/02/20 04/11/21 Roshni Nascimento RN Personal Advocate & Liaison (PAL) Family Medicine 08/18/20 [facility] [address] [place] [address] Pharmacist Pharmacist 08/28/20 11/26/20 Kiet Swain MD [address] [place], [place] [address] Referring Physician Psychiatry 09/19/20 Winsome Pike, VIDHI MILK TRUCK DRIVER [address] [place] [address] Nurse Practitioner Psychiatry 09/19/[address] [facility] [address] [place], [place] 55[address] Drug Inspector Drug Inspector - Clinical 09/19/20 Miranda Queen [facility] [address] [place] [address] Pharmacist Pharmacist 11/12/20 Winsome Pike APRN MILK TRUCK DRIVER [address] [place] [address] Assigned Behavioral Health Provider 01/04/21 07/02/22 Marisel Armando MD [address] [place] [address] 314205 Gastroenterology 02/05/21 Marisel Armando MD [address] [place] [address] 445835 Assigned Gastroenterology Provider 03/08/21 12/24/22 Inderjit Ugalde MD [address] [facility] 300 [place], [place] 85[address]47 Assigned Surgical Provider 02/15/21 08/20/22 Wesley Barrett MD [address] [place] [address] 96 [place], [place] [address] Assigned Neuroscience Provider 05/10/21 Charles Jaramillo PA-C [address] [address] Assigned Musculoskeletal Provider 04/26/21 10/15/22 [facility] [address] [place] [address] Assigned MTM Pharmacist 12/05/21 03/26/22 [place] [address] [place] [address] Assigned PCP 01/23/22 05/14/22 [facility] [address] [place] [address] Assigned MTM Pharmacist 04/07/22 05/14/22 [place] [address] [place] [address] Assigned PCP 05/15/22 Katiana Read MD [address] [place] [address] Assigned Endocrinology Provider 06/19/22 [place] [address] [place] [address] Assigned Behavioral Health Provider 07/03/22 12/31/22 Deena Garza, WAREHOUSE ASSOCIATE MILK TRUCK DRIVER [address] [place] [address] Assigned Pain Medication Provider 07/19/22 10/29/22 Mary Del Cid, RAFAEL [address] [place] [address] Nurse Practitioner Nurse Practitioner 10/18/22 Elham Stack, [facility] 3033 [place] [address] Pharmacist Pharmacist 10/19/22 Emerita Potter, [facility] Clinic Card Mounter Drug Inspector - Clinical 10/29/22 11/02/22 [place] [address] [place] [address] Assigned Pain Medication Provider 10/30/22 12/03/22 Michelle Guzman, ERIC, Podiatry/Foot and Ankle Surgery [address] [place] [address] Assigned Musculoskeletal Provider 10/16/22 04/08/23 [place] [address] [place] [address] Assigned Pain Medication Provider 12/04/22 04/01/23 [place] [address] [place] [address] Nurse Practitioner Nurse Practitioner 01/17/23 01/17/23 Aubrey Jones MD [address] [place] [address] Cardiovascular Disease 03/28/23 Blanquita Morales Nylon Machine Operator Diabetes Education 04/25/23 Aubrey Jones MD [address] [place] [address] Assigned Heart and Vascular Provider 05/07/23 documented as of this encounter
--- OUTSIDE RECORDS SUMMARY | 2023-08-03 12:59 | XMS_ITS | Encounter Summary ---
Author Name Unknown Organization [place] Address [address] [place] [address]. [place] [address] Care Team Providers Care Ancillary Services Manager Therapy Name Role Phone Len Adhikrai MD Primary Care Provider Jovany Gonzalez MD Unavailable [phone] CrissyStaci jeong TRANSMISSION WORKER Unavailable [phone] Len Adhikari MD Unavailable Reanna Smith RD Unavailable Jamshid Granados MD Unavailable [phone] Katiana Read MD Unavailable +[phone] Jovita Daly MD Unavailable [phone] Alexander López MD Unamarcelina lable Jese Doyle MD Unavailable [phone] Roshni Nascimento RN Unavailable Unavailable Johana Groves [facility] Unavailable Kiet Swain MD Unavailable [phone] Winsome Pike APRN STOCK CRANE OPERATOR Unavailable +[phone] Tori Hines [facility] Unavailable Miranda Queen [facility] Unavailable Unavailable Winsome Pike APRN STOCK CRANE OPERATOR Unavailable Marisel Armando MD Unavailable Marisel Armando MD Unavailable Inderjit Ugalde MD Unavailable [phone] Wesley Barrett MD Unavailable +[phone] EllaCharles jimenez Michele GEIGER Unavailable +[phone] Miranda Queen [facility] Unavailable Unavailable Leeann Rinaldi MD Unavailable Miranda Queen [facility] Unavailable Unavailable Dyan Fuentes MD Primary Care Provider [phone] Dyan Fuentes MD Unavailable [phone] Katiana Read MD Unavailable [phone] Meme Singleton PhD Unavailable +[phone] Deena Garza APRN STOCK CRANE OPERATOR Unavailable +[phone] Mary Del Cid NP Unavailable + [phone] Elham Stack [facility] Unavailable [phone] Emerita Potter [facility] Unavailable [phone] Mary Del Cid NP Unavailable + [phone] Michelle Guzman DPM, Podiatry /Foot and Ankle Surgery Unavailable Dyan Fuentes MD Unavailable [phone] Mary Del Cid NP Unavailable + [phone] Aubrey Jones MD Unavailable [phone] Blanquita Morales Unavailable Unavailable Aubrey Jones MD Unavailable +[phone] Encounter Details Date Type Department Care Team (Late st Contact Info) Description 05/30/2019 [facility] [address] [address] [place] [address] [place] [address] Social History Tobacco Use Types Packs/Day Years [...] st Contact Info) Description 08/18/2023 3:00 PM KEYPUNCH OPERATOR Office Visit [facility] [address] [facility] [address] [place] [address] Katiana Read MD [address] [place] [address] documented as of this encounter Visit Diagnoses Not on filedocumented in this encounter Additional Health Concerns Infection Onset Date Last Indicated Resolved Time Rule Out COVID-19 08/19/2020 08/19/2020 08/19/2020 4:40 PM KEYPUNCH OPERATOR Rule Out C-difficile 02/27/2021 02/27/2021 021 [...] documented as of this encounter Care Teams Ancillary Services Manager Therapy Relationship Specialty Start Date End Date Len Adhikari MD PCP - General Family Practice 11/08/16 05/09/22 [place] [address] [place] [address] PCP - General Family Medicine 05/18/22 Jovany Gonzaelz MD [facility] [address] [facility] 605 [place], [place] 15[address] Orthopedics 02/15/17 Staci Woodward NP [facility] [address] [place], [place] [address] Nurse Practitioner Nurse Practitioner Psych/Mental Health 05/10/17 [place] [address] [facility] [place] [address] Assigned PCP 11/14/16 01/22/[address] [facility] [address] [place], [place] 406537 Cloth Brushing And Sueding Supervisor Dietitian, Registered 07/25/19 [place] [address] [facility] 300 [place], [place] [address] Assigned Musculoskeletal Provider 05/02/20 09/13/20 Katiana Read MD [address] [facility] 200 [place], [place] [address] Assigned Endocrinology Provider 05/02/20 08/01/21 Jovita Daly MD [address] [place], [place] [address] Assigned Surgical Provider 05/02/20 10/04/20 Alexander López MD 606 [facility] 106 [place], [place] [address] Assigned Sleep Provider 05/02/20 11/15/20 Jese Doyle MD 909 [place], [place] 22[address]45 Assigned Pulmonology Provider 05/02/20 04/11/21 Roshni Nascimento, RN Personal Advocate & Liaison (PAL) Family Medicine 08/18/20 Johana Groves, [facility] [address] [facility] [facility] [address] [place], [place] [address] Pharmacist Pharmacist 08/28/20 11/26/20 Kiet Swain MD [address] [place], [place] [address] [place], [place] [address] Referring Physician Psychiatry 09/19/20 Winsome Pike APRN STOCK CRANE OPERATOR [address] [address] Nurse Practitioner Psychiatry 09/19/20 Tori Hines, [facility] 2450 [place], [place] [address] Confectionery Drops Machine Operator Confectionery Drops Machine Operator - Clinical 09/19/20 Miranda Queen [facility] [address] [place] [address] Pharmacist Pharmacist 11/12/20 Winsome Pike APRN STOCK CRANE OPERATOR [facility] [place] [address] Assigned Behavioral Health Provider 01/04/21 07/02/22 Marisel Armando MD [address] [place] [address] [id number] Gastroenterology 02/05/21 Marisel Armando MD [address] [place] [address] 227005 Assigned Gastroenterology Provider 03/08/21 12/24/22 Inderjit Ugalde MD [address] [facility] 300 [place], [place] 6[address] Assigned Surgical Provider 02/15/21 08/20/22 Wesley Barrett MD 420 [facility] 96 [place], [place] [address] Assigned Neuroscience Provider 05/10/21 Charles Jaramillo PA-C [address] [address] Assigned Musculoskeletal Provider 04/26/21 10/15/22 [place] [address] [place] [address] Assigned MTM Pharmacist 12/05/21 03/26/22 [place] [address] [place] [address] Assigned PCP 01/23/22 05/14/22 Miranda Queen [facility] [address] [place] [address] Assigned MTM Pharmacist 04/07/22 05/14/22 [place] [address] [place] [address] Assigned PCP 05/15/22 Katiana Read MD [address] [place] [address] Assigned Endocrinology Provider 06/19/22 [place] PhD [address] [place] [address] Assigned Behavioral Health Provider 07/03/22 12/31/22 Deena Garza APRN STOCK CRANE OPERATOR [address] [place] [address] Assigned Pain Medication Provider 07/19/22 10/29/22 Mary Del Cid, RAFAEL [address] [place] [address] Nurse Practitioner Nurse Practitioner 10/18/22 Elham Stack, [facility] 3033 [place] [address] Pharmacist Pharmacist 10/19/22 Emerita Potter, [facility] Clinic Paper Bag Maker Confectionery Drops Machine Operator - Clinical 10/29/22 11/02/22 [place] [address] [address] [place] [address] Assigned Pain Medication Provider 10/30/22 12/03/22 Michelle Guzman, DPM, Podiatry/Foot and Ankle Surgery [address] [place] [address] Assigned Musculoskeletal Provider 10/16/22 04/08/23 [place] [address] [place] [address] Assigned Pain Medication Provider 12/04/22 04/01/23 [place] [address] [place] [address] Nurse Practitioner Nurse Practitioner 01/17/23 01/17/23 Aubrey Jones MD [address] [place] [address] Cardiovascular Disease 03/28/23 Blanquita Morales Cloth Brushing And Sueding Supervisor Diabetes Education 04/25/23 Aubrey Jones MD [address] [place] [address] Assigned Heart and Vascular Provider 05/07/23 documented as of this encounter
--- OUTSIDE RECORDS SUMMARY | 2023-08-03 12:59 | XMS_ITS | Encounter Summary ---
Author Name Unknown Organization [facility] Address [address] [place] [address]. [place] [address] Care Team Providers Care Division Sergeant Name Role Phone Len Adhikari MD Primary Care Provider Jovany Gonzalez MD Unavailable CrissyStaci jeong FLOOR TILING PROFESSIONAL Unavailable [phone] Len Adhikari MD Unavailable +[phone] Unavailable [phone] Jamshid Granados MD Unavailable [phone] Katiana Read MD Unavailable +[phone] Jovita Daly MD Unavailable +[phone] Alexander López MD Unamarcelina lable Jese Doyle MD Unavailable +[phone] Roshni Nascimento RN Unavailable Unavailable Johana Groves [facility] Unavailable Kiet Swain MD Unavailable [phone] Winsome Pike APRN GRIZZLYMAN Unavailable +[phone] [facility] Unavailable Miranda Queen [facility] Unavailable Unavailable Winsome Pike APRN GRIZZLYMAN Unavailable Marisel Armando MD Unavailable Marisel Armando MD Unavailable Inderjit Ugalde MD Unavailable +[phone] Wesley Barrett MD Unavailable +[phone] EllaCharles Michele GEIGER Unavailable +[phone] Miranda Queen [facility] Unavailable Unavailable Leeann Rinaldi MD Unavailable Miranda Queen [facility] Unavailable Unavailable Dyan Fuentes MD Primary Care Provider [phone] Dyan Fuentes MD Unavailable [phone] Katiana Read MD Unavailable [phone] Meme Singleton PhD Unavailable [phone] Deena Garza APRN GRIZZLYMAN Unavailable +[phone] Mary Del Cid NP Unavailable + [phone] Elham Stack [facility] Unavailable +[phone] [facility] Unavailable +[phone] Mary Del Cid NP Unavailable + [phone] Michelle Guzman DPM, Podiatry /Foot and Ankle Surgery Unavailable Dyan Fuentes MD Unavailable [phone] Mary Del Cid NP Unavailable [phone] Aubrey Jones MD Unavailable [phone] Blanquita Morales Unavailable Unavailable Aubrey Jones MD Unavailable +[phone] Encounter Details Date Type Department Care Team (Late st Contact Info) Description 06/12/2019 [facility] [address] [place] [address] Rachelle Benites, PATRICK Social History [...] st Contact Info) Description 08/18/2023 3:00 PM POLL WATCHER Office Visit [facility] [address] [place] [address] Katiana Read MD [address] [address] [place], [place] [address] documented as of this encounter Visit Diagnoses Not on filedocumented in this encounter Additional Health Concerns Infection Onset Date Last Indicated Resolved Time Rule Out COVID-19 08/19/2020 08/19/2020 08/19/2020 4:40 PM POLL WATCHER Rule Out C-difficile 02/27/2021 02/27/2021 021 6:10 [...] documented as of this encounter Care Teams Division Sergeant Relationship Specialty Start Date End Date Len Adhikari MD PCP - General Family Practice 11/08/16 05/09/22 [place] [address] [place] [address] PCP - General Family Medicine 05/18/22 Jovany Gonzalez MD [facility] 6600 [facility] 605 [place], [place] 6[address] Orthopedics 02/15/17 Staci Woodward NP [place] [address] [place], [place] [address] Nurse Practitioner Nurse Practitioner Psych/Mental Health 05/10/17 [place] [address] [facility] [place] [address] Assigned PCP 11/14/16 01/22/[address] [address] Jewelry Bearing Maker Dietitian, Registered 07/25/19 [place] [address] [facility] [address] [place], [place] [address] Assigned Musculoskeletal Provider 05/02/20 09/13/20 Katiana Read MD [address] [place] [address] 200 [place] [address] Assigned Endocrinology Provider 05/02/20 08/01/21 Jovita Daly MD [address] [place] [address] Assigned Surgical Provider 05/02/20 10/04/20 Alexander López MD [address] [address] [facility] 106 [place], [place] [address]604 Assigned Sleep Provider 05/02/20 11/15/20 Jese Doyle MD 909 [place], [place] 8[address] Assigned Pulmonology Provider 05/02/20 04/11/21 Roshni Nascimento, RN Personal Advocate & Liaison (PAL) Family Medicine 08/18/20 Johana Groves, [facility] [address] [facility] [place] [address] Pharmacist Pharmacist 08/28/20 11/26/20 Kiet Swain MD 2450 [facility]15 [place], [place] [address] Referring Physician Psychiatry 09/19/20 Winsome Pike, VIDHI GRIZZLYMAN [address] [place] [address] Nurse Practitioner Psychiatry 09/19/20 Tori Hines, [facility] 2450 [place] [address] Floor Scrubber Floor Scrubber - Clinical 09/19/20 Miranda Queen [facility] [address] [place] [address] Pharmacist Pharmacist 11/12/20 Winsome Pike APRN GRIZZLYMAN [address] [place] [address] Assigned Behavioral Health Provider 01/04/21 07/02/22 Marisel Armando MD [address] [place] [address] Gastroenterology 02/05/21 Marisel Armando MD [address] [place] [address] Assigned Gastroenterology Provider 03/08/21 12/24/22 Inderjit Ugalde MD [address] [facility] 300 [place] [address] Assigned Surgical Provider 02/15/21 08/20/22 Wesley Barrett MD [address] [place] [address] Assigned Neuroscience Provider 05/10/21 Charles Jaramillo PA-C [address]45 [facility] [address] [address] Assigned Musculoskeletal Provider 04/26/21 10/15/22 Miranda Queen [facility] [address] [place] [address] Assigned MTM Pharmacist 12/05/21 03/26/22 [place] [address] [place] [address] Assigned PCP 01/23/22 05/14/22 Miranda Queen [facility] [address] [place] [address] Assigned MTM Pharmacist 04/07/22 05/14/22 [place] [address] [place] [address] Assigned PCP 05/15/22 Katiana Read MD [address] [address] Assigned Endocrinology Provider 06/19/22 [place] [address] [place] [address]57 Assigned Behavioral Health Provider 07/03/22 12/31/22 Deena Garza APRN GRIZZLYMAN [address] [place] 04[address]27 Assigned Pain Medication Provider 07/19/22 10/29/22 Mary Del Cid, RAFAEL [address] [place] [address]17 Nurse Practitioner Nurse Practitioner 10/18/22 Elham Stack, [facility] 3033 [place] [address] Pharmacist Pharmacist 10/19/22 Emerita Potter, [facility] Clinic Paper Cup Handle Machine Operator Floor Scrubber - Clinical 10/29/22 11/02/22 [place] [address] [address] [place] [address] Assigned Pain Medication Provider 10/30/22 12/03/22 Michelle Guzman DPM, Podiatry/Foot and Ankle Surgery [address] [place] [address] Assigned Musculoskeletal Provider 10/16/22 04/08/23 [place] [address] [place] [address] Assigned Pain Medication Provider 12/04/22 04/01/23 [place] [address] [address] [place] [address] Nurse Practitioner Nurse Practitioner 01/17/23 01/17/23 Aubrey Jones MD [address] [place] [address] Cardiovascular Disease 03/28/23 Blanquita Morales Jewelry Bearing Maker Diabetes Education 04/25/23 Aubrey Jones MD [address] [place] [address] Assigned Heart and Vascular Provider 05/07/23 documented as of this encounter
--- OUTSIDE RECORDS SUMMARY | 2023-08-03 12:59 | XMS_ITS | Encounter Summary ---
Author Name Unknown Organization [facility] Address [address] [place] [address]. [place] [address] Care Team Providers Care Supervisor Cutting Department Name Role Phone Len Adhikari MD Primary Care Provider Jovany Gonzalez MD Unavailable CrissyStaci jeong SERVICER COIN MACHINES Unavailable [phone] Len Adhikari MD Unavailable [phone] Unavailable Jamshid Granados MD Unavailable Katiana Read MD Unavailable [phone] Jovita Daly MD Unavailable +[phone] Alexander López MD Unamarcelina lable Jese Doyle MD Unavailable [phone] Roshni Nascimento RN Unavailable Unavailable Johana Groves [facility] Unavailable [phone] Kiet Swain MD Unavailable [phone] Winsome Pike APRN MIXED CROP AND LIVESTOCK FARMER Unavailable +[phone] Tori Hines [facility] Unavailable Miranda Queen [facility] Unavailable Unavailable Winsome Pike APRN MIXED CROP AND LIVESTOCK FARMER Unavailable Marisel Armando MD Unavailable Marisel Armando MD Unavailable Inderjit Ugalde MD Unavailable [phone] Wesley Barrett MD Unavailable +[phone] EllaCharles jimenez Michele GEIGER Unavailable +[phone] Miranda Queen [facility] Unavailable Unavailable Leeann Rinaldi MD Unavailable Miranda Queen [facility] Unavailable Unavailable Dyan Fuentes MD Primary Care Provider [phone] Dyan Fuentes MD Unavailable [phone] Katiana Read MD Unavailable [phone] Meme Singleton PhD Unavailable [phone] Deena Garza APRN MIXED CROP AND LIVESTOCK FARMER Unavailable +[phone] Mary Del Cid NP Unavailable + [phone] Elham Stack [facility] Unavailable [phone] Emerita Potter [facility] Unavailable [phone] Mary Del Cid NP Unavailable [phone] Michelle Guzman DPM, Podiatry /Foot and Ankle Surgery Unavailable Dyan Fuentes MD Unavailable [phone] Mary Del Cid NP Unavailable + [phone] Aubrey Jones MD Unavailable [phone] Blanquita Morales Unavailable Unavailable Aubrey Jones MD Unavailable +[phone] Reason for Visit * Reason Onset Date Comments Nostalgia Bingo Communication 04/26/2019 Encounter Details Date Type Department Care Team (Late st Contact Info) Description 04/26/2019 [facility] [address] [place] [phone] [place] [address] [place] [address] MyChart Communication Social History Tobacco Use Types [...] Info) Description 08/18/2023 3:00 PM DIRECTOR OF CARDIOLOGY Office Visit [facility] [address] [facility] [address] [place] [phone] Katiana Read MD [address] [place] [address] documented as of this encounter Visit Diagnoses Not on filedocumented in this encounter Additional Health Concerns Infection Onset Date Last Indicated Resolved Time Rule Out COVID-19 08/19/2020 08/19/2020 08/19/2020 4:40 PM DIRECTOR OF CARDIOLOGY Rule Out C-difficile 02/27/2021 02/27/2021 021 6:10 [...] as of this encounter Care Teams Supervisor Cutting Department Relationship Specialty Start Date End Date Len Adhikari MD PCP - General Family Practice 11/08/16 05/09/22 [place] [address] [place] [address] PCP - General Family Medicine 05/18/22 Jovany Gonzalez MD [facility] 6600 [facility] 605 [place], [place] [address] Orthopedics 02/15/17 Staci Woodward NP [facility] [address] [place], [place] [address] Nurse Practitioner Nurse Practitioner Psych/Mental Health 05/10/17 [place] [address] [facility] [place] [address] Assigned PCP 11/14/16 01/22/[address] [facility] [address] [place], [place] [address] Wood Planer Dietitian, Registered 07/25/19 [place] [address] [facility] [address] [place], [place] [address] Assigned Musculoskeletal Provider 05/02/20 09/13/20 Katiana Read MD [address] [facility] 200 [place], [place] [address] Assigned Endocrinology Provider 05/02/20 08/01/21 Jovita Daly MD [address] [place], [place] [address] Assigned Surgical Provider 05/02/20 10/04/20 Alexander López MD [address] [facility] 106 [place], [place] [address] Assigned Sleep Provider 05/02/20 11/15/20 Jese Doyle MD 909 [place] [address] Assigned Pulmonology Provider 05/02/20 04/11/21 Roshni Nacsimento, RN Personal Advocate & Liaison (PAL) Family Medicine 08/18/20 Johana Groves, [facility] [address] [place], [place] [address] Pharmacist Pharmacist 08/28/20 11/26/20 Kiet Swain MD [address] [facility] [address] [place], [place] [address] Referring Physician Psychiatry 09/19/20 Winsome Pike APRN MIXED CROP AND LIVESTOCK FARMER [address] [place] [address] 648294 Nurse Practitioner Psychiatry 09/19/20 Tori Hines, [facility] 2450 [place], [place] [address] Machinist Set Up Machinist Set Up - Clinical 09/19/20 Miranda Queen [facility] [address] [place] [address] Pharmacist Pharmacist 11/12/20 Winsome Pike APRN MIXED CROP AND LIVESTOCK FARMER [address] [place] [address] 881314 Assigned Behavioral Health Provider 01/04/21 07/02/22 Marisel Armando MD [address] [place] [address] [id number] Gastroenterology 02/05/21 Marisel Armando MD [address] [place] [address] 666295 Assigned Gastroenterology Provider 03/08/21 12/24/22 Inderjit Ugalde MD [address] [address] Assigned Surgical Provider 02/15/21 08/20/22 Wesley Barrett MD [address] [place] [address] 96 [place], [place] [address] Assigned Neuroscience Provider 05/10/21 Charles Jaramillo PA-C [address] [facility] [address] [address] Assigned Musculoskeletal Provider 04/26/21 10/15/22 Miranda Queen [facility] [address] [place] [address] Assigned MTM Pharmacist 12/05/21 03/26/22 [place] [address] [place] [address] Assigned PCP 01/23/22 05/14/22 Miranda Queen [facility] [address] [place] [address] Assigned MTM Pharmacist 04/07/22 05/14/22 [place] [address] [place] [address] Assigned PCP 05/15/22 Katiana Read MD [address] [address] Assigned Endocrinology Provider 06/19/22 [place] [address] [place] [address] Assigned Behavioral Health Provider 07/03/22 12/31/22 Deena Garza APRN MIXED CROP AND LIVESTOCK FARMER [address] [place] [address] Assigned Pain Medication Provider 07/19/22 10/29/22 Mary Del Cid, RAFAEL [address] [place] [address] Nurse Practitioner Nurse Practitioner 10/18/22 Elham Stack, [facility] 3033 [place] [address] Pharmacist Pharmacist 10/19/22 Emerita Potter, [facility] Clinic Fish House Worker Machinist Set Up - Clinical 10/29/22 11/02/22 [place] [address] [place] [address] Assigned Pain Medication Provider 10/30/22 12/03/22 Michelle Guzman, DPM, Podiatry/Foot and Ankle Surgery [address] [place] [address] Assigned Musculoskeletal Provider 10/16/22 04/08/23 [place] [address] [place] [address] Assigned Pain Medication Provider 12/04/22 04/01/23 [place] [address] [place] [address] Nurse Practitioner Nurse Practitioner 01/17/23 01/17/23 Aubrey Jones MD [address] [place] [address] Cardiovascular Disease 03/28/23 Blanquita Morales Wood Planer Diabetes Education 04/25/23 Aubrey Jones MD [address] [place] [address] Assigned Heart and Vascular Provider 05/07/23 documented as of this encounter
--- OUTSIDE RECORDS SUMMARY | 2023-08-03 12:59 | XMS_ITS | Encounter Summary ---
Author Name Unknown Organization [facility] Address [address] [place] [address]. [place] [address] Care Team Providers Care Cow Tender Name Role Phone Len Adhikari MD Primary Care Provider Jovany Gonzalez MD Unavailable CrissyStaci jeong PROCUREMENT MANAGER Unavailable [phone] Len Adhikari MD Unavailable Reanna Smith RD Unavailable Jamshid Granados MD Unavailable Katiana Read MD Unavailable [phone] Jovita Daly MD Unavailable +[phone] Alexander López MD Unamarcelina lable Jese Doyle MD Unavailable +[phone] Roshni Nascimento RN Unavailable Unavailable Johana Groves [facility] Unavailable Kiet Swain MD Unavailable [phone] Winsome Pike APRN SITE SAFETY MANAGER Unavailable +[phone] Tori Hines [facility] Unavailable Miranda Queen [facility] Unavailable Unavailable Winsome Pike APRN SITE SAFETY MANAGER Unavailable Marisel Armando MD Unavailable Marisel Armando MD Unavailable Inderjit Ugalde MD Unavailable [phone] Wesley Barrett MD Unavailable +[phone] EllaCharles jimenez Michele GEIGER Unavailable +[phone] Miranda Queen [facility] Unavailable Unavailable Leeann Rinaldi MD Unavailable Miranda Queen [facility] Unavailable Unavailable Dyan Fuentes MD Primary Care Provider [phone] Dyan Fuentes MD Unavailable [phone] Katiana Read MD Unavailable [phone] Meme Singleton PhD Unavailable [phone] Deena Garza APRN SITE SAFETY MANAGER Unavailable [phone] Mary Del Cid NP Unavailable + [phone] Elham Stack [facility] Unavailable +[phone] Emerita Potter [facility] Unavailable [phone] Mary Del Cid NP Unavailable + [phone] [...] Team (Late st Contact Info) Description 07/25/2019 [facility] [address] [place] [phone] Alexander López MD [address] [facility] 106 [place], [place] [address] Patient Request (Sleep study results 06/11/19) Social [...] study results 1. Please upload results into [facility] 2. Please mail a paper copy to home address (confirmed address is current. 3. Please call and let patient know what the next steps are, whether she need a machine or not, where to go and phone numbers for home medical to schedule any applicable fittings etc Phone number to reach patient: Home number on file [phone] (home) Best Time: any Can we leave a detailed message on this number? YES ON TEACHER documented in this encounter Plan of Treatment Upcoming Encounters Date Type Department Care Team ([facility] st Contact Info) Description 08/18/2023 3:00 PM PRISON TEACHER Office Visit [facility] [address] [place] [address] Katiana Read MD [address] [facility] 200 [place] [address] documented as of this encounter Visit Diagnoses Not on filedocumented in this encounter Additional Health Concerns Infection Onset Date Last Indicated Resolved Time Rule Out COVID-19 08/19/2020 08/19/2020 08/19/2020 4:40 PM PRISON TEACHER Rule Out C-difficile 02/27/2021 02/27/2021 021 6:10 [...] documented as of this encounter Care Teams Cow Tender Relationship Specialty Start Date End Date Len Adhikari MD PCP - General Family Practice 11/08/16 05/09/22 [place] [address] [place] [address] PCP - General Family Medicine 05/18/22 Jovany Gonzalez MD [facility] 6600 [facility] 605 [place] [address] Orthopedics 02/15/17 Staci Woodward PROCUREMENT MANAGER [address] [place] [address] Nurse Practitioner Nurse Practitioner Psych/Mental Health 05/10/17 [place] [address] [place] [address] Assigned PCP 11/14/16 01/22/[address] [facility] [address] [place] [address] Horse Racetrack Manager Dietitian, Registered 07/25/19 [place] [address] [facility] [address] [place] [address] Assigned Musculoskeletal Provider 05/02/20 09/13/20 Katiana Read MD [address] [place], [place] [address] Assigned Endocrinology Provider 05/02/20 08/01/21 Jovita Daly MD [address] [place] [address] Assigned Surgical Provider 05/02/20 10/04/20 Alexander López MD [address] [place], [place] [address] Assigned Sleep Provider 05/02/20 11/15/20 Jese Doyle MD 909 [facility] [place], [place] [address] Assigned Pulmonology Provider 05/02/20 04/11/21 Roshni Nascimento, RN Personal Advocate & Liaison (PAL) Family Medicine 08/18/20 Johana Groves [facility] [address] [place], [place] [phone] Pharmacist Pharmacist 08/28/20 11/26/20 Kiet Swain MD [address] [place], [place] [address] [place] [address] Referring Physician Psychiatry 09/19/20 Winsome Pike APRN SITE SAFETY MANAGER [address] [place] [address] 163404 Nurse Practitioner Psychiatry 09/19/20 Tori Hines [facility] [address] [place] [address] 309594 Customer Service Associate Customer Service Associate - Clinical 09/19/20 [facility] [address] [place] [address] Pharmacist Pharmacist 11/12/20 Winsome Pike APRN SITE SAFETY MANAGER [address] [place] [address] [id number] Assigned Behavioral Health Provider 01/04/21 07/02/22 Marisel Armando MD [address] [place] [address] 815035 Gastroenterology 02/05/21 Marisel Armando MD [address] [place] [address] Assigned Gastroenterology Provider 03/08/21 12/24/22 Inderjit Ugalde MD [address] [place] [address] Assigned Surgical Provider 02/15/21 08/20/22 Wesley Barrett MD 420 [facility] 96 [place] [address] Assigned Neuroscience Provider 05/10/21 Charles Jaramillo PA-C 6545 [facility] 450 [place] [address] Assigned Musculoskeletal Provider 04/26/21 10/15/22 Miranda Queen [facility] [address] [place] [address] Assigned MTM Pharmacist 12/05/21 03/26/22 [place] [address] [place] [address] Assigned PCP 01/23/22 05/14/22 Miranda Queen [facility] [address] [place] [address] Assigned MTM Pharmacist 04/07/22 05/14/22 [place] [address] [place] [address] Assigned PCP 05/15/22 Katiana Read MD [address] [facility] 200 [place], [place] 47[address] Assigned Endocrinology Provider 06/19/22 [place] [address] [place] [address] Assigned Behavioral Health Provider 07/03/22 12/31/22 Deena Garza APRN SITE SAFETY MANAGER [address] [place] [address] Assigned Pain Medication Provider 07/19/22 10/29/22 [place] [address] [address] [place] [address] Nurse Practitioner Nurse Practitioner 10/18/22 Elham Stack, [facility] [address] [place], [place] [address] Pharmacist Pharmacist 10/19/22 Emerita Potter, [facility] Clinic Cut Press Operator Customer Service Associate - Clinical 10/29/22 11/02/22 [place] [address] [facility] [address] [address] Assigned Pain Medication Provider 10/30/22 12/03/22 Michelle Guzman DPM, Podiatry/Foot and Ankle Surgery [address] [place] [address] Assigned Musculoskeletal Provider 10/16/22 04/08/23 [place] [address] [place] [address] Assigned Pain Medication Provider 12/04/22 04/01/23 [place] [address] [address] [place] [address] Nurse Practitioner Nurse Practitioner 01/17/23 01/17/23 Aubrey Jones MD [address] [place] [address] Cardiovascular Disease 03/28/23 Blanquita Morales Horse Racetrack Manager Diabetes Education 04/25/23 Aubrey Jones MD [address] [place] [address] Assigned Heart and Vascular Provider 05/07/23 documented as of this encounter
--- OUTSIDE RECORDS SUMMARY | 2023-08-03 12:59 | XMS_ITS | Encounter Summary ---
Author Name Unknown Organization [place] Address [address] [place] [address]. [place] [address] Care Team Providers Care Statistician Applied Name Role Phone Len Adhikari MD Primary Care Provider [phone] Jovany Gonzalez MD Unavailable CrissyStaci jeong RESEARCH PHYSICIAN Unavailable [phone] Len Adhikari MD Unavailable Reanna Smith RD Unavailable Jamshid Granados MD Unavailable Katiana Read MD Unavailable [phone] Jovita Daly MD Unavailable +[phone] Alexander López MD Unamarcelina lable Jese Doyle MD Unavailable +[phone] Roshni Nascimento RN Unavailable Unavailable Johana Groves [facility] Unavailable +[phone] Kiet Swain MD Unavailable [phone] Winsome Pike APRN [employer] Unavailable +[phone] Tori Hines [facility] Unavailable Miranda Queen [facility] Unavailable Unavailable Winsome Pike APRN [employer] Unavailable Marisel Armando MD Unavailable Marisel Armando MD Unavailable Inderjit Ugalde MD Unavailable [phone] Wesley Barrett MD Unavailable +[phone] EllaCharles jimenez Michele GEIGER Unavailable +[phone] Miranda Queen [facility] Unavailable Unavailable Leeann Rinaldi MD Unavailable Miranda Queen [facility] Unavailable Unavailable Dyan Fuentes MD Primary Care Provider +[phone] Dyan Fuentes MD Unavailable [phone] Katiana Read MD Unavailable +[phone] Meme Singleton PhD Unavailable [phone] Deena Garza APRN [employer] Unavailable +[phone] Mary Del Cid NP Unavailable + [phone] Elham Stack [facility] Unavailable +[phone] Emerita Potter [facility] Unavailable +[phone] Mary Del Cid NP Unavailable + [phone] Michelle Guzman DPM, Podiatry /Foot and Ankle Surgery Unavailable Dyan Fuentes MD Unavailable [phone] Mary Del Cid NP Unavailable + [phone] Aubrey Jones MD Unavailable +[phone] Blanquita Morales Unavailable Unavailable Aubery Jones MD Unavailable +[phone] Encounter Details Date Type Department Care Team (Late st Contact Info) Description 05/15/2019 [facility] [address] [address] [place] [address] [place] [address] Social History Tobacco Use Types Packs/Day Years [...] st Contact Info) Description 08/18/2023 3:00 PM STATE ARCHIVIST Office Visit [facility] [address] [facility] [address] [place] [address] Katiana Read MD [address] [place] [address] documented as of this encounter Visit Diagnoses Not on filedocumented in this encounter Additional Health Concerns Infection Onset Date Last Indicated Resolved Time Rule Out COVID-19 08/19/2020 08/19/2020 08/19/2020 4:40 PM STATE ARCHIVIST Rule Out C-difficile 02/27/2021 02/27/2021 021 6:10 [...] documented as of this encounter Care Teams Statistician Applied Relationship Specialty Start Date End Date Len Adhikari MD PCP - General Family Practice 11/08/16 05/09/22 [place] [address] [place] [address] PCP - General Family Medicine 05/18/22 Jovany Gonzalez MD [facility] 6600 [facility] 605 [place], [place] 4[address] Orthopedics 02/15/17 Staci Woodward NP [facility] [address] [place], [place] 164207 Nurse Practitioner Nurse Practitioner Psych/Mental Health 05/10/17 [place] [address] [facility] [place] [address] Assigned PCP 11/14/16 01/22/[address] [facility] [address] [place], [place] [address] Milliner Helper Dietitian, Registered 07/25/[address] [place] [address] [facility] 300 [place], [place] [address] Assigned Musculoskeletal Provider 05/02/20 09/13/20 Katiana Read MD [address] [facility] 200 [place], [place] [address] Assigned Endocrinology Provider 05/02/20 08/01/21 Jovita Daly MD [address] [place], [place] 5[address] Assigned Surgical Provider 05/02/20 10/04/20 Alexander López MD 606 [facility] 106 [place], [place] [address] Assigned Sleep Provider 05/02/20 11/15/20 Jese Doyle MD 909 [place], [place] 2460[address] Assigned Pulmonology Provider 05/02/20 04/11/21 Roshni Nascimento, RN Personal Advocate & Liaison (PAL) Family Medicine 08/18/20 Johana Groves, [facility] [address] [facility] [address] [place], [place] [address] Pharmacist Pharmacist 08/28/20 11/26/20 Kiet Swain MD [address] [place], [place] [address] [place], [place] [address] Referring Physician Psychiatry 09/19/20 Winsmoe Pike APRN [employer] [address] [address] Nurse Practitioner Psychiatry 09/19/20 Tori Hines, [facility] 2450 [place], [place] 18[address] Chemical Research Engineer Chemical Research Engineer - Clinical 09/19/20 Miranda Queen [facility] [address] [place] [address] Pharmacist Pharmacist 11/12/20 Winsome Pike APRN [employer] [facility] [address] [place] [address] 967614 Assigned Behavioral Health Provider 01/04/21 07/02/22 Marisel Armando MD [address] [place] [address] [phone] Gastroenterology 02/05/21 Marisel Armando MD [address] [place] [address] 325585 Assigned Gastroenterology Provider 03/08/21 12/24/22 Inderjit Ugalde MD [address] [facility] 300 [place], [place] [address]117 Assigned Surgical Provider 02/15/21 08/20/22 Wesley Barrett MD [address] [facility] 96 [place], [place] [address] Assigned Neuroscience Provider 05/10/21 Charles Jaramillo PA-C [address] [address] Assigned Musculoskeletal Provider 04/26/21 10/15/22 [place] [address] [place] [address] Assigned MTM Pharmacist 12/05/21 03/26/22 [place] [address] [place] [address] Assigned PCP 01/23/22 05/14/22 Miranda Queen [facility] [address] [place] [address] Assigned MTM Pharmacist 04/07/22 05/14/22 [place] [address] [place] [address] Assigned PCP 05/15/22 Katiana Read MD [address] [place] [address] Assigned Endocrinology Provider 06/19/22 [place] [address] [place] [address] Assigned Behavioral Health Provider 07/03/22 12/31/22 Deena Garza APRN [employer] [address] [place] [address] Assigned Pain Medication Provider 07/19/22 10/29/22 Mary Del Cid, RAFAEL [address] [place] [address] Nurse Practitioner Nurse Practitioner 10/18/22 Elham Stack, [facility] 3033 [place] [address] Pharmacist Pharmacist 10/19/22 Emerita Potter, [facility] Clinic Plastic Tubing Insulation Supervisor Chemical Research Engineer - Clinical 10/29/22 11/02/22 [place] [address] [address] [place] [address] Assigned Pain Medication Provider 10/30/22 12/03/22 Michelle Guzman, DPM, Podiatry/Foot and Ankle Surgery [address] [place] [address] Assigned Musculoskeletal Provider 10/16/22 04/08/23 [place] [address] [place] [address] Assigned Pain Medication Provider 12/04/22 04/01/23 [place] [address] [place] [address] Nurse Practitioner Nurse Practitioner 01/17/23 01/17/23 Aubrey Jones MD [address] [place] [address] Cardiovascular Disease 03/28/23 Blanquita Morales Milliner Helper Diabetes Education 04/25/23 Aubrey Jones MD [address] [place] [address] Assigned Heart and Vascular Provider 05/07/23 documented as of this encounter
--- OUTSIDE RECORDS SUMMARY | 2023-08-03 12:59 | XMS_ITS | Encounter Summary ---
Author Name Unknown Organization [place] Address [address] [place] [address]. [place] [address] Care Team Providers Care Pc Analyst Name Role Phone Len Adhikari MD Primary Care Provider Jovany Gonzalez MD Unavailable [phone] [facility] Unavailable [phone] [facility] Unavailable Len Adhikari MD Unavailable Laurita Yang RN Unavailable Reanna Smith RD Unavailable Jamshid Granados MD Unavailable [phone] Katiana Read MD Unavailable +[phone] Jovita Daly MD Unavailable Alexander López MD Unavai lable Jese Doyle MD Unavailable +[phone] Roshni Nascimento RN Unavailable Unavailable Johana Groves [facility] Unavailable Kiet Swain MD Unavailable [phone] Winsome Pike APRN CURTAIN SUPERVISOR Unavailable +[phone] Tori HinesSW Unavailable Miranda Queen [facility] Unavailable Unavailable Winsome Pike APRN CURTAIN SUPERVISOR Unavailable +[phone] Marisel Armando MD Unavailable Marisel Armando MD Unavailable Inderjit Ugalde MD Unavailable [phone] Wesley Barrett MD Unavailable [phone] Charles Jaramillo PA-C Unavailable +[phone] Miranda Queen [facility] Unavailable Unavailable Leeann Rinaldi MD Unavailable Miranda Queen [facility] Unavailable Unavailable Dyan Fuentes MD Primary Care Provider +[phone] Dyan Fuentes MD Unavailable +[phone] Katiana Read MD Unavailable [phone] Meme Singleton PhD Unavailable [phone] Deena Garza HYDRATOR CURTAIN SUPERVISOR Unavailable +[phone] Mary Del Cid NP Unavailable + [phone] Elham Stack [facility] Unavailable [phone] Abbey Emerita M EMBEDDED NURSE Unavailable +[phone] Mary Del Cid NP Unavailable + [phone] [...] (Late st Contact Info) Description 03/04/2019 Refill [facility] [address] [place] [address] [place] [address] [place] [address] Medication Refill (multiple medications) Social [...] 03/07/2019 11:04 AM CDT Prescription approved per [facility] Refill Protocol. For [...] CDT Return Visit with Katiana Read MD [facility] ([facility] [address] [facility] [address] [facility] [address] TABLETS] 60 tablet 0 Sig: TAKE [...] CDT Return Visit with Katiana Read MD [facility] ([facility]) [address] [facility] 160 [facility] [address] 90 tablet 0 Sig: TAKE 1 TABLET [...] CDT Return Visit with Katiana Read MD [facility] ([facility]) [address] [facility] [address] [facility] [phone] 1 Inhaler 0 Sig: Inhale 2 puffs [...] st Contact Info) Description 08/18/2023 3:00 PM MARSH BUGGY OPERATOR Office Visit [facility] [address] [place] [address] Katiana Read MD [address] [place] [address] documented as of this encounter Visit Diagnoses Diagnosis Essential hypertension Unspecified essential hypertension Hypertriglyceridemia Pure hyperglyceridemia Hyperlipidemia LDL goal <100 Other and unspecified hyperlipidemia Chronic obstructive pulmonary disease, unspecified COPD type (H) documented in this encounter Additional Health Concerns Infection Onset Date Last Indicated Resolved Time Rule Out COVID-19 08/19/2020 08/19/2020 08/19/2020 4:40 PM MARSH BUGGY OPERATOR Rule Out C-difficile 02/27/2021 02/27/2021 021 [...] documented as of this encounter Care Teams Pc Analyst Relationship Specialty Start Date End Date Len Adhikari MD PCP - General Family Practice 11/08/16 05/09/22 [place] [address] [place] [address] PCP - General Family Medicine 05/18/22 Jovany Gonzalez MD [facility] 6600 [facility] 605 [place], [place] [address] Orthopedics 02/15/17 Staci Woodward NP [facility] [address] [place] [address] Nurse Practitioner Nurse Practitioner Psych/Mental Health 05/10/17 [facility]ENCY ([facility]), ([place]) 02/16/18 04/12/19 [place] [address] [place] [address] Assigned PCP 11/14/16 01/22/22 Laurita Yang, RN Lead Studio Producer 01/08/[address] [facility] [address] [place] [address] Commercial Solar Sales Consultant Dietitian, Registered 07/25/19 [place] [address] [facility] [address] [place] [address] Assigned Musculoskeletal Provider 05/02/20 09/13/20 Katiana Read MD [address] [place] [address] Assigned Endocrinology Provider 05/02/20 08/01/21 Jovita Daly MD 303 [place] [address] Assigned Surgical Provider 05/02/20 10/04/20 Alexander López MD [address] [place], [place] [address] Assigned Sleep Provider 05/02/20 11/15/20 Jese Doyle MD [address] [facility] [place], [place] [address] Assigned Pulmonology Provider 05/02/20 04/11/21 Roshni Nascimento, RN Personal Advocate & Liaison (PAL) Family Medicine 08/18/20 Johana Groves [facility] [address] [facility] [address] [place], [place] [phone] Pharmacist Pharmacist 08/28/20 11/26/20 Kiet Swain MD [address] [place] [address]004 Referring Physician Psychiatry 09/19/20 Winsome Pike APRN CURTAIN SUPERVISOR [address] [place] [address]374 Nurse Practitioner Psychiatry 09/19/20 Tori Hines [facility] [address] [place] [address] [phone] Correctional Supervising Cook Correctional Supervising Cook - Clinical 09/19/20 [facility] [address] [place] [address] Pharmacist Pharmacist 11/12/20 Winsome Pike APRN CURTAIN SUPERVISOR [address] [place] [address] Assigned Behavioral Health Provider 01/04/21 07/02/22 Marisel Armando MD [address] [place] [address] Gastroenterology 02/05/21 Marisel Armando MD [address] [place] [address] Assigned Gastroenterology Provider 03/08/21 12/24/22 Inderjit Ugalde MD [address] [place] [address] Assigned Surgical Provider 02/15/21 08/20/22 Wesley Barrett MD 420 [facility] 96 [place] [address] Assigned Neuroscience Provider 05/10/21 Charles Jaramillo PA-C 6545 [facility] 450 [place] [address] Assigned Musculoskeletal Provider 04/26/21 10/15/22 Miranda Queen [facility] [address] [place] [address] Assigned MTM Pharmacist 12/05/21 03/26/22 [place] [address] [place] [address] Assigned PCP 01/23/22 05/14/22 Miranda Queen [facility] [address] [place] [address] Assigned MTM Pharmacist 04/07/22 05/14/22 [place] [address] [place] [address] Assigned PCP 05/15/22 Katiana Read MD [address] 200 [place] [address] Assigned Endocrinology Provider 06/19/22 [place] [address] [place] [address] Assigned Behavioral Health Provider 07/03/22 12/31/22 Deena Garza, HYDRATOR CURTAIN SUPERVISOR [address] [place] [address] Assigned Pain Medication Provider 07/19/22 10/29/22 [place] [address] [address] [place] [address] Nurse Practitioner Nurse Practitioner 10/18/22 Elham Stack, [facility] [address] [place], [place] [address] Pharmacist Pharmacist 10/19/22 Emerita Potter, [facility] Clinic Studio Producer Correctional Supervising Cook - Clinical 10/29/22 11/02/22 [place] [address] [address] [place] [place] [address] Assigned Pain Medication Provider 10/30/22 12/03/22 Michelle Guzman DPM, Podiatry/Foot and Ankle Surgery [address] [address] [place] [place] [address] Assigned Musculoskeletal Provider 10/16/22 04/08/23 [place] [address] [place] [address] Assigned Pain Medication Provider 12/04/22 04/01/23 [place] [address] [address] [place] [address] Nurse Practitioner Nurse Practitioner 01/17/23 01/17/23 Aubrey Jones MD [address] [place] [address] Cardiovascular Disease 03/28/23 Blanquita Morales Commercial Solar Sales Consultant Diabetes Education 04/25/23 Aubrey Jones MD [address] [place] [address] Assigned Heart and Vascular Provider 05/07/23 documented as of this encounter
--- OUTSIDE RECORDS SUMMARY | 2023-08-03 12:59 | XMS_ITS | Encounter Summary ---
Author Name Unknown Organization [place] Address [address] [place] [address]. [place] [address] Care Team Providers Care Network Security Officer Name Role Phone Len Adhikari MD Primary Care Provider Jovany Gonzalez MD Unavailable [facility] NP Unavailable [phone] [facility] Unavailable Len Adhikari MD Unavailable [phone] Laurita Yang RN Unavailable Reanna Smith RD Unavailable Jamshid Granados MD Unavailable [phone] Katiana Read MD Unavailable +[phone] Jovita Daly MD Unavailable Alexander López MD Unavai lable Jese Doyle MD Unavailable +[phone] Roshni Nascimento RN Unavailable Unavailable Johana Gorves [facility] Unavailable Kiet Swain MD Unavailable [phone] Winsome Pike APRN MANAGER BATTERY Unavailable +[phone] Tori HinesSW Unavailable Miranda Queen [facility] Unavailable Unavailable Winsome Pike APRN MANAGER BATTERY Unavailable [phone] Marisel Armando MD Unavailable Marisel Armando MD Unavailable Inderjit Ugalde MD Unavailable [phone] Wesley Barrett MD Unavailable +[phone] Charles Jaramillo PA-C Unavailable +[phone] Miranda Queen [facility] Unavailable Unavailable Leeann Rinaldi MD Unavailable Miranda Queen [facility] Unavailable Unavailable Dyan Fuentes MD Primary Care Provider [phone] Dyan Fuentes MD Unavailable +[phone] Katiana Read MD Unavailable +[phone] Meme Singleton PhD Unavailable +[phone] Deena Garza FABRIC SOURCER MANAGER BATTERY Unavailable +[phone] Mary Del Cid NP Unavailable + [phone] Elham Stack [facility] Unavailable +[phone] Abbey Emerita M BUFFING WHEEL INSPECTOR Unavailable +[phone] Mary Del Cid NP Unavailable + [phone] Michelle Guzman DPM, Podiatry /Foot and Ankle Surgery Unavailable Dyan Fuentes MD Unavailable [phone] Mary Del Cid NP Unavailable + [phone] Aubrey Jones MD Unavailable +[phone] Blanquita Morales Unavailable Unavailable Aubrey Jones MD Unavailable +[phone] Reason for Visit * Reason Onset Date Comments Vulevúhart Communication 02/07/2019 Encounter Details Date Type Department Care Team (Latest Contact Info) Description 02/07/2019 MyC Medical Advice M [facility] [address] [facility] [address] [place] [address] Katiana Read MD [address] [place] [address] MyChart Communication Social History Tobacco Use Types [...] see my chart message and advise. Thanks Mash Preparatory Operator is not sure what prompted this message. documented in this encounter Plan of Treatment Upcoming Encounters Date Type Department Care Team (Late st Contact Info) Description 08/18/2023 3:00 PM STRIPPER LATEX Office Visit [facility] [address] [place] [address] Katiana Read MD [address] [place] [address] documented as of this encounter Visit Diagnoses Not on filedocumented in this encounter Additional Health Concerns Infection Onset Date Last Indicated Resolved Time Rule Out COVID-19 08/19/2020 08/19/2020 08/19/2020 4:40 PM STRIPPER LATEX Rule Out C-difficile 02/27/2021 02/27/2021 021 6:10 [...] as of this encounter Care Teams Network Security Officer Relationship Specialty Start Date End Date Len Adhikari MD PCP - General Family Practice 11/08/16 05/09/22 [place] [address] [place] [address] PCP - General Family Medicine 05/18/22 Jovany Gonzalez MD [facility] [address] [place] [address] Orthopedics 02/15/17 Staci Woodward NP [place] [address] [place], [place] [address] Nurse Practitioner Nurse Practitioner Psych/Mental Health 05/10/17 Care, [facility]Y ([facility] ([place]) 02/16/18 04/12/[address] [place] [address] [address] Assigned PCP 11/14/16 01/22/22 Laurita Yang, RN Lead Examination Scorer 01/08/[address] [facility] [address] [place] [address] Watch Inspector Dietitian, Registered 07/25/19 [place] [address] [facility] [address] [place] [address] Assigned Musculoskeletal Provider 05/02/20 09/13/20 Katiana Read MD [address] [place], [place] [address] Assigned Endocrinology Provider 05/02/20 08/01/21 Jovita Daly MD [address] [place] [address] Assigned Surgical Provider 05/02/20 10/04/20 Alexander López MD [address] [facility] 106 [place], [place] [address] Assigned Sleep Provider 05/02/20 11/15/20 Jese Doyle MD [address] [place] [address] Assigned Pulmonology Provider 05/02/20 04/11/21 Roshni Nascimento, RN Personal Advocate & Liaison (PAL) Family Medicine 08/18/20 Johana Groves [facility] [address] [facility] [address] [place], [place] [phone] Pharmacist Pharmacist 08/28/20 11/26/20 Kiet Swain MD [address] [place] [address] [phone] Referring Physician Psychiatry 09/19/20 Winsome Pike APRN MANAGER BATTERY [address] [place] [address] 266954 Nurse Practitioner Psychiatry 09/19/20 Tori Hines [facility] [address] [place] [address] [phone] Correction Officer Supervisor Correction Officer Supervisor - Clinical 09/19/20 Miranda Queen, [facility] [address] [place] [address] Pharmacist Pharmacist 11/12/20 Winsome Pike APRN MANAGER BATTERY [address] [place] [address] Assigned Behavioral Health Provider 01/04/21 07/02/22 Marisel Armando MD [address] [place] [address] [phone] Gastroenterology 02/05/21 Marisel Armando MD [address] [place] [address] 423205 Assigned Gastroenterology Provider 03/08/21 12/24/22 Inderjit Ugalde MD [address] [facility] 300 [place] [address] Assigned Surgical Provider 02/15/21 08/20/22 Wesley Barrett MD 420 [facility] 96 [place] [address] Assigned Neuroscience Provider 05/10/21 Charles Jaramillo PA-C 6545 [facility] 450 [place] [address] Assigned Musculoskeletal Provider 04/26/21 10/15/22 Miranda Queen [facility] [address] [place] [address] Assigned MTM Pharmacist 12/05/21 03/26/22 [place] [address] [place] [address] Assigned PCP 01/23/22 05/14/22 Miranda Queen [facility] [address] [place] [address] Assigned MTM Pharmacist 04/07/22 05/14/22 [place] [address] [place] [address] Assigned PCP 05/15/22 Katiana Read MD [address] [place] [address] Assigned Endocrinology Provider 06/19/22 [place] [address] [place] [address] Assigned Behavioral Health Provider 07/03/22 12/31/22 Deena Garza APRN MANAGER BATTERY [address] [place] [address] Assigned Pain Medication Provider 07/19/22 10/29/22 Mary Del Cid, RAFAEL [address] [place] [address] Nurse Practitioner Nurse Practitioner 10/18/22 Elham Stack, [facility] 3033 [place], [place] [address] Pharmacist Pharmacist 10/19/22 Emerita Potter, [facility] Clinic Examination Scorer Correction Officer Supervisor - Clinical 10/29/22 11/02/22 Mary Del Cid, RAFAEL [address] [place] [address] Assigned Pain Medication Provider 10/30/22 12/03/22 Michelle Guzman, DPM, Podiatry/Foot and Ankle Surgery [address] [place] [address] Assigned Musculoskeletal Provider 10/16/22 04/08/23 [place] [address] [place] [address] Assigned Pain Medication Provider 12/04/22 04/01/23 [place] [address] [address] [place] [address] Nurse Practitioner Nurse Practitioner 01/17/23 01/17/23 Aubrey Jones MD [address] [place] [address] Cardiovascular Disease 03/28/23 Blanquita Morales Watch Inspector Diabetes Education 04/25/23 Aubrey Jones MD [address] [place] [address] Assigned Heart and Vascular Provider 05/07/23 documented as of this encounter
--- OUTSIDE RECORDS SUMMARY | 2023-08-03 12:59 | XMS_ITS | Encounter Summary ---
Author Name Unknown Organization [place] Address [address] [place] [address]. [place] [address] Care Team Providers Care Administrative Assistant Name Role Phone Len Adhikari MD Primary Care Provider Jovany Gonzalez MD Unavailable CrissyStaci jeong PER DIEM PHYSICAL THERAPIST Unavailable [phone] Len Adhikari MD Unavailable [phone] Unavailable Jamshid Granados MD Unavailable Katiana Read MD Unavailable +[phone] Jovita Daly MD Unavailable +[phone] Alexander López MD Unamarcelina lable Jese Doyle MD Unavailable +[phone] Roshni Nascimento RN Unavailable Unavailable Johana Groves [facility] Unavailable +[phone] Kiet Swain MD Unavailable [phone] Winsome Pike APRN NUTRITION SERVICES AIDE Unavailable +[phone] Tori Hines [facility] Unavailable Miranda Queen [facility] Unavailable Unavailable Winsome Pike APRN NUTRITION SERVICES AIDE Unavailable Marisel Armando MD Unavailable Marisel Armando MD Unavailable Inderjit Ugalde MD Unavailable [phone] Wesley Barrett MD Unavailable +[phone] EllaCharles Michele GEIGER Unavailable +[phone] Miranda Queen [facility] Unavailable Unavailable Leeann Rinaldi MD Unavailable Miranda Queen [facility] Unavailable Unavailable Dyan Fuentes MD Primary Care Provider [phone] Dyan Fuentes MD Unavailable +[phone] Katiana Read MD Unavailable [phone] Meme Singleton PhD Unavailable +[phone] Deena Garza APRN NUTRITION SERVICES AIDE Unavailable +[phone] Mary Del Cid NP Unavailable + [phone] Elham Stack [facility] Unavailable +[phone] Emerita Potter [facility] Unavailable [phone] Mary Del Cid NP Unavailable + [phone] Michelle Guzman DPM, Podiatry /Foot and Ankle Surgery Unavailable Dyan Fuentes MD Unavailable +[phone] Mary Del Cid NP Unavailable + [phone] Aubrey Jones MD Unavailable +[phone] Blanquita Morales Unavailable Unavailable Aubrey Jones MD Unavailable +[phone] Encounter Details Date Type Department Care Team (Late st Contact Info) Description 08/16/2019 [facility] [address] [address] PusalaAlexander saha MD [address] [place] [address] Social History Tobacco Use Types Packs/Day Years [...] st Contact Info) Description 08/18/2023 3:00 PM NETWORK SECURITY OFFICER Office Visit [facility] [address] [place] [phone] Katiana Read MD [address] [facility] 200 [place] [address] documented as of this encounter Visit Diagnoses Not on filedocumented in this encounter Additional Health Concerns Infection Onset Date Last Indicated Resolved Time Rule Out COVID-19 08/19/2020 08/19/2020 08/19/2020 4:40 PM NETWORK SECURITY OFFICER Rule Out C-difficile 02/27/2021 02/27/2021 021 [...] documented as of this encounter Care Teams Administrative Assistant Relationship Specialty Start Date End Date Len Adhikari MD PCP - General Family Practice 11/08/16 05/09/22 [place] [address] [place] [address] PCP - General Family Medicine 05/18/22 Jovany Gonzalez MD [facility] 6600 [facility] 605 [place], [place] 6[address]85 Orthopedics 02/15/17 Staci Woodward NP [facility] [address] [place], [place] [address] Nurse Practitioner Nurse Practitioner Psych/Mental Health 05/10/17 [place] [address] [facility] [place] [address] Assigned PCP 11/14/16 01/22/[address] [facility] [address] [place] [address] Corn Husker Machine Operator Dietitian, Registered 07/25/19 [place] [address] [facility] 300 [place], [place] [address] Assigned Musculoskeletal Provider 05/02/20 09/13/20 Katiana Read MD [address] [facility] 200 [place], [place] 272060 Assigned Endocrinology Provider 05/02/20 08/01/21 Jovita Daly MD [address] [place], [place] [id number] Assigned Surgical Provider 05/02/20 10/04/20 Alexander López MD [address] [facility] 106 [place], [place] 408164 Assigned Sleep Provider 05/02/20 11/15/20 Jese Doyle MD 909 [place], [place] 9616[address] Assigned Pulmonology Provider 05/02/20 04/11/21 Roshni Nascimento, RN Personal Advocate & Liaison (PAL) Family Medicine 08/18/20 Johana Groves, [facility] [address] [facility] [address] [place], [place] [phone] Pharmacist Pharmacist 08/28/20 11/26/20 Kiet Swain MD Critical access hospital0 [facility] NG15 [place], [place] [address] Referring Physician Psychiatry 09/19/20 Winsome Pike APRN NUTRITION SERVICES AIDE [address] [place] [address] Nurse Practitioner Psychiatry 09/19/20 Tori Hines, [facility] 2450 [place] [address] Filer Repairer Filer Repairer - Clinical 09/19/20 Miranda Queen [facility] [address] [place] [address] Pharmacist Pharmacist 11/12/20 Winsome Pike APRN NUTRITION SERVICES AIDE [address] [place] [address] 454894 Assigned Behavioral Health Provider 01/04/21 07/02/22 Marisel Armando MD [address] [place] [address] [phone] Gastroenterology 02/05/21 Marisel Armando MD [address] [place] [address] 673225 Assigned Gastroenterology Provider 03/08/21 12/24/22 Inderjit Ugalde MD [address] [address] Assigned Surgical Provider 02/15/21 08/20/22 Wesley Barrett MD [address] [place] [address] 96 [place], [place] 668315 Assigned Neuroscience Provider 05/10/21 Charles Jaramillo PA-C [address] [address] Assigned Musculoskeletal Provider 04/26/21 10/15/22 Miranda Queen [facility] [address] [place] [address] Assigned MTM Pharmacist 12/05/21 03/26/22 [place] [address] [place] [address] Assigned PCP 01/23/22 05/14/22 Miranda Queen [facility] [address] [place] [address] Assigned MTM Pharmacist 04/07/22 05/14/22 [place] [address] [place] [address] Assigned PCP 05/15/22 Katiana Read MD [address] [place] [address] Assigned Endocrinology Provider 06/19/22 [place] [address] [place] [address] Assigned Behavioral Health Provider 07/03/22 12/31/22 Deena aGrza APRN NUTRITION SERVICES AIDE [address] [place] [address] Assigned Pain Medication Provider 07/19/22 10/29/22 Mary Del Cid, RAFAEL [address] [place] [address] Nurse Practitioner Nurse Practitioner 10/18/22 Elham Stack, [facility] 3033 [place] [address] Pharmacist Pharmacist 10/19/22 Emerita Potter, [facility] Clinic Bottle Sorter Filer Repairer - Clinical 10/29/22 11/02/22 [place] [address] [place] [address] Assigned Pain Medication Provider 10/30/22 12/03/22 Michelle Guzman, DPM, Podiatry/Foot and Ankle Surgery [address] [place] [address] Assigned Musculoskeletal Provider 10/16/22 04/08/23 [place] [address] [place] [address] Assigned Pain Medication Provider 12/04/22 04/01/23 [place] [address] [place] [address] Nurse Practitioner Nurse Practitioner 01/17/23 01/17/23 Aubrey Jones MD [address] [place] [address] Cardiovascular Disease 03/28/23 Blanquita Morales Corn Husker Machine Operator Diabetes Education 04/25/23 Aubrey Jones MD [address] [place] [address] Assigned Heart and Vascular Provider 05/07/23 documented as of this encounter
--- OUTSIDE RECORDS SUMMARY | 2023-08-03 12:59 | XMS_ITS | Encounter Summary ---
Author Name Unknown Organization [place] Address [address] [place] [address]. [place] [address] Care Team Providers Care Electronic Coils Supervisor Name Role Phone Len Adhikari MD Primary Care Provider Jovany Gonzalez MD Unavailable CrissyStaci jenog SWING SAW OPERATOR Unavailable [phone] Len Adhikari MD Unavailable Reanna Smith [address] Unavailable Jamshid Granados MD Unavailable Katiana Read MD Unavailable [phone] Jovita Daly MD Unavailable +[phone] Alexander López MD Unamarcelina lable Jese Doyle MD Unavailable +[phone] Roshni Nascimento RN Unavailable Unavailable Johana Groves [facility] Unavailable Kiet Swain MD Unavailable [phone] Winsome Pike APRN INSPECTOR WATCH ASSEMBLY Unavailable +[phone] Tori Hines [facility] Unavailable Miranda Queen [facility] Unavailable Unavailable Winsome Pike APRN INSPECTOR WATCH ASSEMBLY Unavailable Marisel Armando MD Unavailable Marisel Armando MD Unavailable Inderjit Ugalde MD Unavailable [phone] Wesley Barrett MD Unavailable +[phone] EllaCharles jimenez Michele GEIGER Unavailable +[phone] Miranda Queen [facility] Unavailable Unavailable Leeann Rinaldi MD Unavailable Miranda Queen [facility] Unavailable Unavailable Dyan Fuentes MD Primary Care Provider [phone] Dyan Fuentes MD Unavailable [phone] Katiana Read MD Unavailable [phone] Meme Singleton PhD Unavailable [phone] Deena Garza APRN INSPECTOR WATCH ASSEMBLY Unavailable +[phone] Mary Del Cid NP Unavailable + [phone] Elham Stack [facility] Unavailable +[phone] Emerita Potter [facility] Unavailable [phone] Mary Del Cid NP Unavailable + [phone] Michelle Guzman DPM, Podiatry /Foot and Ankle Surgery Unavailable Dyan Fuentes MD Unavailable [phone] Mary Del Cid NP Unavailable + [phone] Aubrey Jones MD Unavailable [phone] Blanquita Morales Unavailable Unavailable Aubrey Jones MD Unavailable [phone] Encounter Details Date Type Department Care Team (Late st Contact Info) Description 08/15/2019 [facility] [address] [address] [place] [address] [place] [address] Social History Tobacco Use Types Packs/Day Years [...] st Contact Info) Description 08/18/2023 3:00 PM ENVIRONMENTAL FIELD TECHNICIAN Office Visit [facility] [address] [place] [address] Katiana Read MD [address] [place] [address] documented as of this encounter Visit Diagnoses Not on filedocumented in this encounter Additional Health Concerns Infection Onset Date Last Indicated Resolved Time Rule Out COVID-19 08/19/2020 08/19/2020 08/19/2020 4:40 PM ENVIRONMENTAL FIELD TECHNICIAN Rule Out C-difficile 02/27/2021 02/27/2021 [...] as of this encounter Care Teams Electronic Coils Supervisor Relationship Specialty Start Date End Date Len Adhikari MD PCP - General Family Practice 11/08/16 05/09/22 [place] [address] [place] [address] PCP - General Family Medicine 05/18/22 Jovany Gonzalez MD [facility] 6600 [facility] 605 [place], [place] 7[address]85 Orthopedics 02/15/17 Staci Woodward NP [facility] [address] [place], [place] [address]557 Nurse Practitioner Nurse Practitioner Psych/Mental Health 05/10/17 [place] [address] [facility] [place] [address] Assigned PCP 11/14/16 01/22/[address] [facility] [address] [place], [place] 847207 Pressurization Mechanic Dietitian, Registered 07/25/19 [place] [address] [facility] 300 [place], [place] [address]907 Assigned Musculoskeletal Provider 05/02/20 09/13/20 Katiana Read MD [address] [facility] 200 [place], [place] 0[address] Assigned Endocrinology Provider 05/02/20 08/01/21 Jovita Daly MD [address] [place], [place] 74[address]87 Assigned Surgical Provider 05/02/20 10/04/20 Alexander López MD 606 [facility] 106 [place], [place] 948034 Assigned Sleep Provider 05/02/20 11/15/20 Jese Doyle MD 909 [place], [place] 0650[address] Assigned Pulmonology Provider 05/02/20 04/11/21 Roshni Nascimento, RN Personal Advocate & Liaison (PAL) Family Medicine 08/18/20 Johana Groves, [facility] [address] [facility] [address] [place], [place] [address] Pharmacist Pharmacist 08/28/20 11/26/20 Kiet Swain MD [address] [place], [place] [address] [place], [place] [address] Referring Physician Psychiatry 09/19/20 Winsome Pike APRN INSPECTOR WATCH ASSEMBLY [address] [address] Nurse Practitioner Psychiatry 09/19/20 Tori Hines, [facility] 2450 [place], [place] 451434 Credit Investigator Credit Investigator - Clinical 09/19/20 Miranda Queen [facility] [address] [place] [address] Pharmacist Pharmacist 11/12/20 Winsome Pike APRN INSPECTOR WATCH ASSEMBLY [facility] [place] [address] 782924 Assigned Behavioral Health Provider 01/04/21 07/02/22 [place] [address] [place] [address] [id number] Gastroenterology 02/05/21 Marisel Armando MD [address] [place] [address] Assigned Gastroenterology Provider 03/08/21 12/24/22 Inderjit Ugalde MD [address] [facility] 300 [place], [place] 59[address] Assigned Surgical Provider 02/15/21 08/20/22 Wesley Barrett MD 420 [facility] 96 [place], [place] 803745 Assigned Neuroscience Provider 05/10/21 Charles Jaramillo PA-C [address] [address] Assigned Musculoskeletal Provider 04/26/21 10/15/22 [place] [address] [place] [address] Assigned MTM Pharmacist 12/05/21 03/26/22 [place] [address] [place] [address] Assigned PCP 01/23/22 05/14/22 Miranda Queen [facility] [address] [place] [address] Assigned MTM Pharmacist 04/07/22 05/14/22 [place] [address] [place] [address] Assigned PCP 05/15/22 Katiana Read MD [address] [place] [address] Assigned Endocrinology Provider 06/19/22 [place] [address] [place] [address] Assigned Behavioral Health Provider 07/03/22 12/31/22 Deena Garza APRN INSPECTOR WATCH ASSEMBLY [address] [place] [address] Assigned Pain Medication Provider 07/19/22 10/29/22 Mary Del Cid, RAFAEL [address] [place] [address] Nurse Practitioner Nurse Practitioner 10/18/22 Elham Stack, [facility] 3033 [place] [address] Pharmacist Pharmacist 10/19/22 Emerita Potter, [facility] Clinic Forest Products Gatherer Credit Investigator - Clinical 10/29/22 11/02/22 [place] [address] [address] [place] [address] Assigned Pain Medication Provider 10/30/22 12/03/22 Michelle Guzman, DPM, Podiatry/Foot and Ankle Surgery [address] [place] [address] Assigned Musculoskeletal Provider 10/16/22 04/08/23 [place] [address] [place] [address] Assigned Pain Medication Provider 12/04/22 04/01/23 [place] [address] [place] [address] Nurse Practitioner Nurse Practitioner 01/17/23 01/17/23 Aubrey Jones MD [address] [place] [address] Cardiovascular Disease 03/28/23 Blanquita Morales Pressurization Mechanic Diabetes Education 04/25/23 Aubrey Jones MD [address] [place] [address] Assigned Heart and Vascular Provider 05/07/23 documented as of this encounter
--- OUTSIDE RECORDS SUMMARY | 2023-08-03 13:00 | XMS_ITS | Encounter Summary ---
Author Name Unknown Organization [place] Address [address] [place] [address]. [place] [address] Care Team Providers Care Surgical Training Specialist Name Role Phone Len Adhikari MD Primary Care Provider Jovany Gonzalez MD [facility]available [facility] Unavailable [phone] [facility] Unavailable [phone] Len Adhiakri MD Unavailable Len Adhikari MD Unavailable [phone] Laurita Yang RN Unavailable Laurita Yang RN Unavailable [phone] Unavailable Jamshid Granados MD Unavailable +[phone] Katiana Read MD Unavailable [phone] Jovita Daly MD Unavailable +[phone] Alexander López MD lable Jese Doyle MD Unavailable [phone] Roshni Nascimento RN Unavailable Unavailable Johana Groves [facility] Unavailable Kiet Swain MD Unavailable [phone] Winsome Pike TAPE CUTTING MACHINE OPERATOR COTTON AGENT Unavailable +[phone] Tori Hines TIME RECORDER Unavailable Miranda Queen [facility] Unavailable Unavailable Winsome Pike VIDHI COTTON AGENT Unavailable [phone] Marisel Armando MD Unavailable Marisel Armando MD Unavailable Inderjit Ugalde MD Unavailable [phone] Wesley Barrett MD Unavailable +[phone] Charles Jaramillo PA-C Unavailable +[phone] Miranda Queen [facility] Unavailable Unavailable Leeann Rinaldi MD Unavailable Miranda Queen [facility] Unavailable Unavailable yDan Fuentes MD Primary Care Provider [phone] Dyan Fuentes MD Unavailable [phone] Katiana Read MD Unavailable [phone] Meme Singleton PhD Unavailable +[phone] Deena Garza TAPE CUTTING MACHINE OPERATOR COTTON AGENT Unavailable +[phone] Mary Del Cid NP Unavailable + [phone] Elham Stack [facility] Unavailable +[phone] Emerita Potter TIME RECORDER Unavailable +[phone] Mary Del Cid NP Unavailable + [phone] [...] Contact Info) Description 03/30/2018 MyC Medical Advice [facility] [address] [place] [phone] [place] [address] [place] [address] MyChart Communication Social History Tobacco [...] Contact Info) Description 08/18/2023 3:00 PM MOLDING MANAGER Office Visit [facility] [address] [place] [address] Katiana Read MD [address] [place] [address] documented as of this encounter Visit Diagnoses Not on filedocumented in this encounter Additional Health Concerns Infection Onset Date Last Indicated Resolved Time Rule Out COVID-19 08/19/2020 08/19/2020 08/19/2020 4:40 PM MOLDING MANAGER Rule Out C-difficile 02/27/2021 02/27/2021 021 [...] documented as of this encounter Care Teams Surgical Training Specialist Relationship Specialty Start Date End Date Len Adhikari MD PCP - General Family Practice 11/08/16 05/09/22 [place] [address] [place] [address] PCP - Assigned PCP 11/14/16 09/12/18 [place] [address] [place] [address] PCP - General Family Medicine 05/18/22 Jovany Gonzalez MD [facility] 6600 [facility] 605 [place], [place] [address] Orthopedics 02/15/17 Staci Woodward, TEXTILE CONSERVATOR [place] [address] [place] [address] Nurse Practitioner Nurse Practitioner Psych/Mental Health 05/10/17 [facility] 02/16/18 04/12/19 [place] [address] [place] [address] Assigned PCP 11/14/16 01/22/22 Laurita Yang, RN Clinic Hvac Manager 12/29/18 01/07/19 Laurita Yang, RN Lead Hvac Manager 01/08/19 9 Reanna Smith, RD [address] [address] Welt Insole Channeler Dietitian, Registered 07/25/19 [place] [address] [facility] 300 [place], [place] 241917 Assigned Musculoskeletal Provider 05/02/20 09/13/20 Katiana Read MD [address] [place] [address] 200 [place], [place] [address] Assigned Endocrinology Provider 05/02/20 08/01/21 Jovita Daly MD [address] [place] [address] Assigned Surgical Provider 05/02/20 10/04/20 Alexander López MD [address] [place] [address] 106 [place], [place] 052704 Assigned Sleep Provider 05/02/20 11/15/20 Jese Doyle MD 909 [place], [place] 5498[address] Assigned Pulmonology Provider 05/02/20 04/11/21 Roshni Nascimento, RN Personal Advocate & Liaison (PAL) Family Medicine 08/18/20 Johana Groves, [facility] [address] [facility] [address] [place], [place] [address] Pharmacist Pharmacist 08/28/20 11/26/20 Kiet Swain MD [address] [place], [place] [address] [place], [place] [address] Referring Physician Psychiatry 09/19/20 Winsome Pike, VIDHI COTTON AGENT [address] [address] Nurse Practitioner Psychiatry 09/19/20 Tori Hines, [facility] 2450 [place] [address] Behavioral Technician Behavioral Technician - Clinical 09/19/20 Miranda Queen [facility] [address] [place] [address] Pharmacist Pharmacist 11/12/20 Winsome Pike APRN CNP [address] [address] Assigned Behavioral Health Provider 01/04/21 07/02/22 Marisel Armando MD [address] [place] [address] Gastroenterology 02/05/21 Marisel Armando MD [address] [place] [address] Assigned Gastroenterology Provider 03/08/21 12/24/22 Inderjit Ugalde MD [address] [facility] 300 [place] [address] Assigned Surgical Provider 02/15/21 08/20/22 Wesley Barrett MD [address] [place] [address] Assigned Neuroscience Provider 05/10/21 Charles Jaramillo PA-C [address] [facility] [address] [address] Assigned Musculoskeletal Provider 04/26/21 10/15/22 Miranda Queen [facility] [address] [place] [address] Assigned MTM Pharmacist 12/05/21 03/26/22 [place] [address] [place] [address] Assigned PCP 01/23/22 05/14/22 Miranda Queen [facility] [address] [place] [address] Assigned MTM Pharmacist 04/07/22 05/14/22 [place] [address] [place] [address] Assigned PCP 05/15/22 Katiana Read MD [address] [address] Assigned Endocrinology Provider 06/19/22 Meme Singleton, PhD [address] [place] [address] Assigned Behavioral Health Provider 07/03/22 12/31/22 Deena Garza APRN COTTON AGENT [address] [place] [address] Assigned Pain Medication Provider 07/19/22 10/29/22 Mary Del Cid, TEXTILE CONSERVATOR [address] [place] [address] Nurse Practitioner Nurse Practitioner 10/18/22 Elham Stack, [facility] 3033 [place] [address] Pharmacist Pharmacist 10/19/22 Emerita Potter, [facility] Clinic Hvac Manager Behavioral Technician - Clinical 10/29/22 11/02/22 Mary Del Cid, RAFAEL [address] [place] [address] Assigned Pain Medication Provider 10/30/22 12/03/22 Michelle Guzman DPM, Podiatry/Foot and Ankle Surgery [address] [place] [address] Assigned Musculoskeletal Provider 10/16/22 04/08/23 [place] [address] [place] [address] Assigned Pain Medication Provider 12/04/22 04/01/23 [place] [address] [place] [address] Nurse Practitioner Nurse Practitioner 01/17/23 01/17/23 Aubrey Jones MD [address] [place] [address] Cardiovascular Disease 03/28/23 Blanquita Morales Welt Insole Channeler Diabetes Education 04/25/23 Aubrey Jones MD [address] [place] [address] Assigned Heart and Vascular Provider 05/07/23 documented as of this encounter
--- OUTSIDE RECORDS SUMMARY | 2023-08-03 13:00 | XMS_ITS | Encounter Summary ---
Author Name Unknown Organization [facility] Address [address] [place] [address]. [place] [address] Care Team Providers Care Nursing Techn Name Role Phone Len Adhikari MD Primary Care Provider Jovany Gonzalez MD Unavailable [phone] [facility] Unavailable [phone] [facility] Unavailable Len Adhikari MD Unavailable Len Adhikari MD Unavailable +[phone] Laurita Yang RN Unavailable Laurita Yang RN Unavailable [phone] Unavailable [phone] Jamshid Granados MD Unavailable Katiana Read MD Unavailable [phone] Jovita Daly MD Unavailable +[phone] Alexander López MD lable Jese Doyle MD Unavailable +[phone] Roshni Nascimento RN Unavailable Unavailable Johana Groves [facility] Unavailable [phone] Kiet Swain MD Unavailable [phone] Winsome Pike TAX SERVICES MANAGER FURNITURE SALES CONSULTANT Unavailable +[phone] Tori Hines WOOD SASH AND FRAME CARPENTER Unavailable Miranda Queen [facility] Unavailable Unavailable Winsome Pike VIDHI FURNITURE SALES CONSULTANT Unavailable [phone] Marisel Armadno MD Unavailable Marisel Armando MD Unavailable Inderjit Ugalde MD Unavailable [phone] Wesley Barrett MD Unavailable +[phone] Charles Jaramillo PA-C Unavailable +[phone] Miranda Queen [facility] Unavailable Unavailable Leeann Rinaldi MD Unavailable Miranda Queen [facility] Unavailable Unavailable Dyan Fuentes MD Primary Care Provider [phone] Dyan Fuentes MD Unavailable [phone] Katiana Read MD Unavailable [phone] Meme Singleton PhD Unavailable +[phone] Deena Garza TAX SERVICES MANAGER FURNITURE SALES CONSULTANT Unavailable +[phone] Mary Del Cid NP Unavailable + [phone] Elham Stack [facility] Unavailable +[phone] Emerita Potter WOOD SASH AND FRAME CARPENTER Unavailable +[phone] Mary Del Cid NP Unavailable + [phone] Michelle Gumzan DPM, Podiatry /Foot and Ankle Surgery Unavailable Dyan Fuentes MD Unavailable [phone] Mary Del Cid NP Unavailable + [phone] Aubrey Jones MD Unavailable [phone] Blanquita Morales Unavailable Unavailable Aubrey Jones MD Unavailable Reason for Visit * Reason Onset Date Comments MyChart Communication 03/28/2018 Encounter Details Date Type Department Care Team (Late st Contact Info) Description 03/28/2018 MyC Medical Advice [facility] [address] [place] [address] [place] [address] [place] [address] MyChart Communication Social History Tobacco [...] st Contact Info) Description 08/18/2023 3:00 PM LEATHER FINISHER Office Visit [facility] [address] [place] [address] Katiana Read MD [address] [place] [address] [address] [place] [address] documented as of this encounter Visit Diagnoses Not on filedocumented in this encounter Additional Health Concerns Infection Onset Date Last Indicated Resolved Time Rule Out COVID-19 08/19/2020 08/19/2020 08/19/2020 4:40 PM LEATHER FINISHER Rule Out C-difficile 02/27/2021 02/27/2021 021 6:10 [...] documented as of this encounter Care Teams Nursing Techn Relationship Specialty Start Date End Date Len Adhikari MD PCP - General Family Practice 11/08/16 05/09/22 [place] [address] [facility] [address] PCP - Assigned PCP 11/14/16 09/12/18 [place] [address] [place] [address] PCP - General Family Medicine 05/18/22 Jovany Gonzalez MD [facility] [address] [facility] [address] [place], [place] [address] Orthopedics 02/15/17 Staci Woodward CASTING PLUG ASSEMBLER [facility] [address] [place], [place] [phone] Nurse Practitioner Nurse Practitioner Psych/Mental Health 05/10/17 [facility] ([facility] ([place]) 02/16/18 04/12/19 [place] [address] [place] [address] Assigned PCP 11/14/16 01/22/22 Laurita Yang, RN Clinic Etcher Enameling 12/29/18 01/07/19 Laurita Yang RN Lead Etcher Enameling 01/08/[address] [facility] [address] [place] [address] Pastoral Assistant Dietitian, Registered 07/25/19 [place] [address] [facility] [address] [place], [place] [address] Assigned Musculoskeletal Provider 05/02/20 09/13/20 Katiana Read MD [address] [facility] [address] [place], [place] [address] Assigned Endocrinology Provider 05/02/20 08/01/21 Jovita Daly MD [address] [place], [place] [address] Assigned Surgical Provider 05/02/20 10/04/20 Alexander López MD [address] [facility] [address] [place], [place] [address] Assigned Sleep Provider 05/02/20 11/15/20 Jese Doyle MD [address] [facility] [place], [place] [address] Assigned Pulmonology Provider 05/02/20 04/11/21 Roshni Nascimento, RN Personal Advocate & Liaison (PAL) Family Medicine 08/18/20 Johana Groves [facility] [address] [place] [address] Pharmacist Pharmacist 08/28/20 11/26/20 Kiet Swain MD [address] [place] [address] Referring Physician Psychiatry 09/19/20 Winsome Pike APRN FURNITURE SALES CONSULTANT [address] [place] [address] Nurse Practitioner Psychiatry 09/19/20 Tori Hines [facility] [address] [place] [address] Cigarette Making Machine Hopper Feeder Cigarette Making Machine Hopper Feeder - Clinical 09/19/20 [facility] [address] [place] [address] Pharmacist Pharmacist 11/12/20 Winsome Pike APRN FURNITURE SALES CONSULTANT [address] [place] [address] Assigned Behavioral Health Provider 01/04/21 07/02/22 Marisel Armando MD [address] [place] [address] Gastroenterology 02/05/21 Marisel Armando MD [address] [place] [address] Assigned Gastroenterology Provider 03/08/21 12/24/22 Inderjit Ugalde MD [address] [place] [address] Assigned Surgical Provider 02/15/21 08/20/22 Wesley Barrett MD [address] [facility] 96 [place] [address] Assigned Neuroscience Provider 05/10/21 Charles Jaramillo PA-C [address] [facility] [address] [place] [address] Assigned Musculoskeletal Provider 04/26/21 10/15/22 [facility] [address] [place] [address] Assigned MTM Pharmacist 12/05/21 03/26/22 [place] [address] [place] [address] Assigned PCP 01/23/22 05/14/22 Miranda Queen [facility] [address] [place] [address] Assigned MTM Pharmacist 04/07/22 05/14/22 [place] [address] [place] [address] Assigned PCP 05/15/22 Katiana Read MD [address] [address] [place] [address] Assigned Endocrinology Provider 06/19/22 [place] [address] [place] [address] Assigned Behavioral Health Provider 07/03/22 12/31/22 Deena Garza APRN CNP [address] [place] [address] Assigned Pain Medication Provider 07/19/22 10/29/22 [place] [address] [address] [place] [address] Nurse Practitioner Nurse Practitioner 10/18/22 Elham Stack, [facility] [address] [place], [place] [address] Pharmacist Pharmacist 10/19/22 Emerita Potter, [facility] Clinic Etcher Enameling Cigarette Making Machine Hopper Feeder - Clinical 10/29/22 11/02/22 [place] [address] [address] [place] [address] Assigned Pain Medication Provider 10/30/22 12/03/22 Michelle Guzman DPM, Podiatry/Foot and Ankle Surgery [address] [place] [address] Assigned Musculoskeletal Provider 10/16/22 04/08/23 [place] [address] [place] [address] Assigned Pain Medication Provider 12/04/22 04/01/23 [place] [address] [address] [place] [address] Nurse Practitioner Nurse Practitioner 01/17/23 01/17/23 Aubrey Jones MD [address] [place] [address] Cardiovascular Disease 03/28/23 Blanquita Morales Pastoral Assistant Diabetes Education 04/25/23 Aubrey Jones MD [address] [place] [address] Assigned Heart and Vascular Provider 05/07/23 documented as of this encounter
--- OUTSIDE RECORDS SUMMARY | 2023-08-03 13:00 | XMS_ITS | Encounter Summary ---
Author Name Unknown Organization [facility] Address [address] [place] [address]. [place] [address] Care Team Providers Care Oven Laborer Name Role Phone Len Adhikari MD Primary Care Provider [phone] Jovany Gonzalez MD Unavailable [facility] Unavailable [phone] [facility] Unavailable [phone] Len Adhikari MD Unavailable [phone] Len Adhikari MD Unavailable Laurita Yang RN Unavailable [phone] Laurita Yang RN Unavailable +[phone] Unavailable Jamshid Granados MD Unavailable Katiana Read MD Unavailable [phone] Jovita Daly MD Unavailable [phone] Alexander López MD lable Jese Doyle MD Unavailable [phone] Roshni Nascimento RN Unavailable Unavailable Johana Groves [facility] Unavailable Kiet Swain MD Unavailable [phone] Winsome Pike PROVIDER RELATIONS SPECIALIST DATA COLLECTION ASSOCIATE Unavailable +[phone] Tori Hines [place] Unavailable Miranda Queen [facility] Unavailable Unavailable Winsome Pike VIDHI DATA COLLECTION ASSOCIATE Unavailable +[phone] Marisel Armando MD Unavailable Marisel Armando MD Unavailable Inderjit Ugalde MD Unavailable [phone] Wesley Barrett MD Unavailable [phone] Charles Jaramillo PA-C Unavailable +[phone] Miranda Queen [facility] Unavailable Unavailable Leeann Rinaldi MD Unavailable Miranda Queen [facility] Unavailable Unavailable Dyan Fuentes MD Primary Care Provider [phone] Dyan Fuentes MD Unavailable [phone] Katiana Read MD Unavailable [phone] Meme Singleton PhD Unavailable +[phone] Deena Garza PROVIDER RELATIONS SPECIALIST DATA COLLECTION ASSOCIATE Unavailable +[phone] Mary Del Cid NP Unavailable + [phone] Elham Stack [facility] Unavailable [phone] Emerita Potter [place] Unavailable +[phone] Mary Del Cid NP Unavailable + [phone] [...] (Late st Contact Info) Description 07/23/2018 Telephone [facility] Nurse Advisors [address] [place] [address] Reina Fitzgerald RN Pending Orders/need approval (Home [...] Len Adhikari MD - 08/14/2018 12:35 PM DESKTOP SUPPORT CONSULTANT I approve of requested home care orders. Len Adhikari TOP SUPPORT CONSULTANT * Telephone Encounter - Lynda Guidry - 08/14/2018 11:49 AM CST [facility] now requests orders and shares plan of care/discharge summaries for some patients through [employer]. Please REPLY TO THIS MESSAGE OR ROUTE [...] changes in cardiac or GI, recertification assessments. TOP SUPPORT CONSULTANT * Telephone Encounter - Reina Fitzgerald RN - 07/23/2018 8:48 AM DESKTOP SUPPORT CONSULTANT Clinic Action Needed:YES check with MD and [...] on 05/17/18. Routed to:PCP Reina Fitzgerald RN [facility] TOP SUPPORT CONSULTANT documented in this encounter Plan of Treatment Upcoming Encounters Date Type Department Care Team (Late st Contact Info) Description 08/18/2023 3:00 PM DESKTOP SUPPORT CONSULTANT Office Visit [facility] [address] [place] [address] Katiana Read MD [address] [place] [address] documented as of this encounter Visit Diagnoses Not on filedocumented in this encounter Additional Health Concerns Infection Onset Date Last Indicated Resolved Time Rule Out COVID-19 08/19/2020 08/19/2020 08/19/2020 4:40 PM DESKTOP SUPPORT CONSULTANT Rule Out C-difficile 02/27/2021 02/27/2021 021 6:10 [...] documented as of this encounter Care Teams Oven Laborer Relationship Specialty Start Date End Date Len Adhikari MD PCP - General Family Practice 11/08/16 05/09/22 [place] [address] [facility] [place] [address] PCP - Assigned PCP 11/14/16 09/12/18 [place] [address] [place] [address] PCP - General Family Medicine 05/18/22 Jovany Gonzalez MD [facility] [address] [facility] [address] [place], [place] [address] Orthopedics 02/15/17 Staci Woodward POSTAL MAIL CARRIER [place] [address] [place], [place] [phone] Nurse Practitioner Nurse Practitioner Psych/Mental Health 05/10/17 Care, [facility] ([facility] ([place]) 02/16/18 04/12/19 [place] [address] [address] Assigned PCP 11/14/16 01/22/22 Laurita Yang, RN Clinic Leadership Program Intern 12/29/18 01/07/19 Laurita Yang RN Lead Leadership Program Intern 01/08/[address] [facility] [address] [place], [place] [address] Cement Boat And Barge Loader Dietitian, Registered 07/25/19 [place] [address] [facility] [address] [place], [place] [address] Assigned Musculoskeletal Provider 05/02/20 09/13/20 Katiana Read MD [address] [facility] [address] [place], [place] [address] Assigned Endocrinology Provider 05/02/20 08/01/21 Jovita Daly MD [address] [place], [place] [address] Assigned Surgical Provider 05/02/20 10/04/20 Alexander López MD [address] [facility] [address] [place], [place] [address] Assigned Sleep Provider 05/02/20 11/15/20 Jese Doyle MD [address] [place] [address] Assigned Pulmonology Provider 05/02/20 04/11/21 Roshni Nascimento, RN Personal Advocate & Liaison (PAL) Family Medicine 08/18/20 Johana Groves, [facility] [address] [place], [place] [phone] Pharmacist Pharmacist 08/28/20 11/26/20 Kiet Swain MD [address] [place] [address] 692414 Referring Physician Psychiatry 09/19/20 Winsome Pike APRN DATA COLLECTION ASSOCIATE [address] [place] [address] [phone] Nurse Practitioner Psychiatry 09/19/20 Tori Hines, [facility] [address] [place] [address]894 Credit Risk Analyst Credit Risk Analyst - Clinical 09/19/20 [facility] [id number] [place] [address] Pharmacist Pharmacist 11/12/20 Winsome Pike APRN DATA COLLECTION ASSOCIATE [address] [place] [address] [phone] Assigned Behavioral Health Provider 01/04/21 07/02/22 Marisel Armando MD [address] [place] [address] 149665 Gastroenterology 02/05/21 Marisel Armando MD [address] [place] [address] Assigned Gastroenterology Provider 03/08/21 12/24/22 Inderjit Ugalde MD [address] [place] [address] Assigned Surgical Provider 02/15/21 08/20/22 Wesley Barrett MD [address] [facility] 96 [place] [address] Assigned Neuroscience Provider 05/10/21 Charles Jaramillo PA-C [address] [facility] 450 [place] [address] Assigned Musculoskeletal Provider 04/26/21 10/15/22 Miranda Queen [facility] [address] [place] [address] Assigned MTM Pharmacist 12/05/21 03/26/22 [place] [address] [place] [address] Assigned PCP 01/23/22 05/14/22 Miranda Queen [facility] [address] [place] [address] Assigned MTM Pharmacist 04/07/22 05/14/22 [place] [address] [place] [address] Assigned PCP 05/15/22 Katiana Read MD [address] [place] [address] Assigned Endocrinology Provider 06/19/22 [place] [address] [place] [place] [address] Assigned Behavioral Health Provider 07/03/22 12/31/22 Deena Garza APRN DATA COLLECTION ASSOCIATE [address] [place] [address] Assigned Pain Medication Provider 07/19/22 10/29/22 Mary Del Cid, RAFAEL [address] [address] [place] [place] [address] Nurse Practitioner Nurse Practitioner 10/18/22 Elham Stack, [facility] [address] [place] [address] Pharmacist Pharmacist 10/19/22 Emerita Potter, [facility] Clinic Leadership Program Intern Credit Risk Analyst - Clinical 10/29/22 11/02/22 [place] [address] [address] [place] [address] Assigned Pain Medication Provider 10/30/22 12/03/22 Michelle Guzman DPM, Podiatry/Foot and Ankle Surgery [address] [place] [address] Assigned Musculoskeletal Provider 10/16/22 04/08/23 [place] [address] [place] [address] Assigned Pain Medication Provider 12/04/22 04/01/23 [place] [address] [address] [place] [address] Nurse Practitioner Nurse Practitioner 01/17/23 01/17/23 Aubrey Jones MD [address] [place] [address] Cardiovascular Disease 03/28/23 Blanquita Morales Cement Boat And Barge Loader Diabetes Education 04/25/23 Aubrey Jones MD [address] [place] [address] Assigned Heart and Vascular Provider 05/07/23 documented as of this encounter
--- OUTSIDE RECORDS SUMMARY | 2023-08-03 13:00 | XMS_ITS | Encounter Summary ---
Author Name Unknown Organization [facility] Address [address] [place] [address]. [place] [address] Care Team Providers Care Er Rn Name Role Phone Len Adhikari MD Primary Care Provider Jovany Gonzalez MD [facility] Unavailable [phone] [facility] Unavailable Len Adhikari MD Unavailable +[phone] Laurita Yang RN Unavailable [phone] Laurita Yang RN Unavailable Reanna Smith RD Unavailable [phone] Jamshid Granados MD Unavailable +[phone] Katiana Read MD Unavailable Jovita Daly MD Unavailable Alexander López MD lab Jese Doyle MD Unavailable [phone] Roshni Nascimento RN Unavailable Unavailable Johana Groves [facility] Unavailable [phone] Kiet Swain MD Unavailable [phone] Winsome Pike APRN TEACHER OF THE HANDICAPPED Unavailable Tori Hines CORPORATE SECURITY OFFICER Unavailable Miranda Queen [facility] Unavailable Unavailable Winsome Pike APRN TEACHER OF THE HANDICAPPED Unavailable [phone] Marisel Armando MD Unavailable Marisel Armando MD Unavailable Inderjit Ugalde MD Unavailable [phone] Wesley Barrett MD Unavailable +[phone] Charles Jaramillo PA-C Unavailable +[phone] Miranda Queen [facility] Unavailable Unavailable Leeann Rinaldi MD Unavailable Miranda Queen [facility] Unavailable Unavailable Dyan Fuentes MD Primary Care Provider +[phone] Dyan Fuentes MD Unavailable [phone] Katiana Read MD Unavailable +[phone] Meme Singleton PhD Unavailable +[phone] Deena Garza APRN TEACHER OF THE HANDICAPPED Unavailable +[phone] Mary Del Cid NP Unavailable + [phone] Elham Stack [facility] Unavailable +[phone] Emerita Potter CORPORATE SECURITY OFFICER Unavailable +[phone] Mary Del Cid NP Unavailable + [phone] Michelle Guzman DPM, Podiatry /Foot and Ankle Surgery Unavailable Dyan Fuentes MD Unavailable [phone] Mary Del Cid NP Unavailable + [phone] Aubrey Jones MD Unavailable +[phone] Blanquita Morales Unavailable Unavailable Aubrey Jones MD Unavailable +[phone] Encounter Details Date Type Department Care Team (Late st Contact Info) Description 11/01/2018 MyC Medical Advice [facility] [address] [place] [phone] Rachelle Benites CMA Social History Tobacco Use [...] st Contact Info) Description 08/18/2023 3:00 PM ALUMINA REFINERY OPERATOR Office Visit [facility] [address] [place] [address] Katiana Read MD [address] [place] [address] 200 [place] [address] documented as of this encounter Visit Diagnoses Not on filedocumented in this encounter Additional Health Concerns Infection Onset Date Last Indicated Resolved Time Rule Out COVID-19 08/19/2020 08/19/2020 08/19/2020 4:40 PM ALUMINA REFINERY OPERATOR Rule Out C-difficile 02/27/2021 02/27/2021 021 [...] documented as of this encounter Care Teams Er Rn Relationship Specialty Start Date End Date Len Adhikari MD PCP - General Family Practice 11/08/16 05/09/22 [place] [address] [place] [address] PCP - General Family Medicine 05/18/22 Jovany Gonzalez MD [facility] 6600 [facility] 605 [place], [place] [address] Orthopedics 02/15/17 Staci Woodward SURGEON'S ASSISTANT [place] [address] [address] [place], [place] [address] Nurse Practitioner Nurse Practitioner Psych/Mental Health 05/10/17 [facility] HEALTH [facility]ENCY ([facility] ([place]) 02/16/18 04/12/19 [place] [address] [facility] [place] [address] Assigned PCP 11/14/16 01/22/22 Laurita Yang, RN Clinic Combustion Engineer 12/29/18 01/07/19 Laurita Yang, RN Lead Combustion Engineer 01/08/[address] [facility] [address] [place] [address] Tax Examining Technician Dietitian, Registered 07/25/19 [place] [address] [facility] [address] [place], [place] [address] Assigned Musculoskeletal Provider 05/02/20 09/13/20 Katiana Read MD [address] [facility] 200 [place], [place] [address] Assigned Endocrinology Provider 05/02/20 08/01/21 Jovita Daly MD [address] [place], [place] 6[address] Assigned Surgical Provider 05/02/20 10/04/20 Alexander López MD [address] [place] [address] 106 [place], [place] [address] Assigned Sleep Provider 05/02/20 11/15/20 Jese Doyle MD 909 [facility] [place], [place] [address] Assigned Pulmonology Provider 05/02/20 04/11/21 Roshni Nascimento, RN Personal Advocate & Liaison (PAL) Family Medicine 08/18/20 Johana Groves, [facility] [address] [place] [place] [address] Pharmacist Pharmacist 08/28/20 11/26/20 Kiet Swain MD 2450 [facility]15 [place] [address] Referring Physician Psychiatry 09/19/20 Winsome Pike APRN TEACHER OF THE HANDICAPPED [facility] [address] Nurse Practitioner Psychiatry 09/19/20 Tori Hines, [facility] 2450 [place] [address] Medical Registrar Medical Registrar - Clinical 09/19/20 Miranda Queen [facility] [address] [place] [address] Pharmacist Pharmacist 11/12/20 Winsome Pike APRN TEACHER OF THE HANDICAPPED [address] [place] [address] Assigned Behavioral Health Provider 01/04/21 07/02/22 Marisel Armando MD [address] [place] [address] Gastroenterology 02/05/21 Marisel Armando MD [address] [place] [address] Assigned Gastroenterology Provider 03/08/21 12/24/22 Inderjit Ugalde MD 303 E [facility] 300 [place], [place] [address] Assigned Surgical Provider 02/15/21 08/20/22 Wesley Barrett MD 420 [facility] 96 [place] [address] Assigned Neuroscience Provider 05/10/21 Charles Jaramillo PA-C 6545 [facility] 450 [place] [address] Assigned Musculoskeletal Provider 04/26/21 10/15/22 Miranda Queen [facility] [address] [place] [address] Assigned MTM Pharmacist 12/05/21 03/26/22 [place] [address] [place] [address] Assigned PCP 01/23/22 05/14/22 Miranda Queen [facility] [address] [place] [address] Assigned MTM Pharmacist 04/07/22 05/14/22 [place] [address] [place] [address] Assigned PCP 05/15/22 Katiana Read MD [address] [place] [address] 200 [place] [address] Assigned Endocrinology Provider 06/19/22 Meme Singleton, PhD [address] [place] [address] Assigned Behavioral Health Provider 07/03/22 12/31/22 Deena Garza APRN TEACHER OF THE HANDICAPPED [address] [place] [address] Assigned Pain Medication Provider 07/19/22 10/29/22 Mary Del Cid, RAFAEL [address] [place] [address]97 Nurse Practitioner Nurse Practitioner 10/18/22 Elham Stack, [facility] 30[address] [place], [place] [address] Pharmacist Pharmacist 10/19/22 Emerita Potter, [facility] Clinic Combustion Engineer Medical Registrar - Clinical 10/29/22 11/02/22 [place] [address] [place] [address] Assigned Pain Medication Provider 10/30/22 12/03/22 Michelle Guzman, DPM, Podiatry/Foot and Ankle Surgery [address] [place] [address] Assigned Musculoskeletal Provider 10/16/22 04/08/23 [place] [address] [place] [address] Assigned Pain Medication Provider 12/04/22 04/01/23 [place] [address] [place] [address] Nurse Practitioner Nurse Practitioner 01/17/23 01/17/23 Aubrey Jones MD [address] [place] [address] Cardiovascular Disease 03/28/23 Blanquita Morales Tax Examining Technician Diabetes Education 04/25/23 Aubrey Jones MD [address] [place] [address] Assigned Heart and Vascular Provider 05/07/23 documented as of this encounter
--- OUTSIDE RECORDS SUMMARY | 2023-08-03 13:00 | XMS_ITS | Encounter Summary ---
Author Name Unknown Organization [facility] Address [address] [place] [address]. [place] [address] Care Team Providers Care Company Laundry Worker Name Role Phone Len Adhikari MD Primary Care Provider Jovany Gonzalez MD Unavailable [facility] NP Unavailable [phone] [facility] Unavailable [phone] Len Adhikari MD Unavailable Laurita Yang RN Unavailable [phone] Laurita Yang RN Unavailable Reanna Smith RD Unavailable [phone] Jamshid Granados MD Unavailable [phone] Katiana Read MD Unavailable Jovita Daly MD Unavailable Alexander López MD lab Jese Doyle MD Unavailable [phone] Roshni Nascimento RN Unavailable Unavailable Johana Groves [facility] Unavailable [phone] Kiet Swain MD Unavailable [phone] Winsome Pike APRN BUSINESS MANAGER Unavailable Tori Hines CONSTRUCTION ENGINEERING MANAGER Unavailable Miranda Queen [facility] Unavailable Unavailable Winsome Pike APRN BUSINESS MANAGER Unavailable [phone] Marisel Armando MD Unavailable Marisel Armando MD Unavailable Inderjit Ugalde MD Unavailable [phone] Wesley Barrett MD Unavailable [phone] Charles Jaramillo PA-C Unavailable +[phone] Miranda Queen [facility] Unavailable Unavailable Leeann Rinaldi MD Unavailable Miranda Queen [facility] Unavailable Unavailable Dyan Feuntes MD Primary Care Provider [phone] Dyan Fuentes MD Unavailable +[phone] Katiana Read MD Unavailable +[phone] Meme Singleton PhD Unavailable +5400 Deena Garza APRN BUSINESS MANAGER Unavailable [phone] Mary Del Cid NP Unavailable + [phone] Elham Stack [facility] Unavailable [phone] Emerita Potter CONSTRUCTION ENGINEERING MANAGER Unavailable +[phone] Mary Del Cid NP Unavailable + [phone] Michelle Guzman DPM, Podiatry /Foot and Ankle Surgery Unavailable Dyan Fuentes MD Unavailable [phone] Mary Del Cid NP Unavailable + [phone] Aubrey Jones MD Unavailable [phone] Blanquita Morales Unavailable Unavailable Aubrey Jones MD Unavailable [phone] Encounter Details Date Type Department Care Team (Late st Contact Info) Description 12/12/2018 MyC Medical Advice [facility] [address] [place] [address] Criselda Ma, VIDHI BUSINESS MANAGER Social History Tobacco Use Types Packs/Day [...] st Contact Info) Description 08/18/2023 3:00 PM GM VIDEO Office Visit [facility] [address] [place] [address] Katiana Read MD [address] [place] [address] 200 [place] [address] documented as of this encounter Visit Diagnoses Not on filedocumented in this encounter Additional Health Concerns Infection Onset Date Last Indicated Resolved Time Rule Out COVID-19 08/19/2020 08/19/2020 08/19/2020 4:40 PM GM VIDEO Rule Out C-difficile 02/27/2021 02/27/2021 021 6:10 [...] documented as of this encounter Care Teams Company Laundry Worker Relationship Specialty Start Date End Date Len Adhikari MD PCP - General Family Practice 11/08/16 05/09/22 [place] [address] [place] [address] PCP - General Family Medicine 05/18/22 Jovany Gonzalez MD [facility]OT 6600 [facility] 605 [place], [place] [address] Orthopedics 02/15/17 Staci Woodward NUTRITION TECHNICIAN [place] [address] [place] [address] Nurse Practitioner Nurse Practitioner Psych/Mental Health 05/10/17 [facility]Y ([facility] ([place]) 02/16/18 04/12/19 [place] [address] [facility] [place] [address] Assigned PCP 11/14/16 01/22/22 Laurita Yang, RN Clinic Heel Wheeler 12/29/18 01/07/19 Laurita Yang, RN Lead Heel Wheeler 01/08/[address] [facility] [address] [place] [address] Wash Barrel Leader Dietitian, Registered 07/25/19 [place] [address] [facility] [address] [place] [address] Assigned Musculoskeletal Provider 05/02/20 09/13/20 Katiana Read MD [address] [place], [place] [address] Assigned Endocrinology Provider 05/02/20 08/01/21 Jovita Daly MD [address] [place], [place] [address] Assigned Surgical Provider 05/02/20 10/04/20 Alexander López MD 606 [facility] 106 [place], [place] [address] Assigned Sleep Provider 05/02/20 11/15/20 Jese Doyle MD 909 [place], [place] [address] Assigned Pulmonology Provider 05/02/20 04/11/21 Roshni Nascimento, ZITA Personal Advocate & Liaison (PAL) Family Medicine 08/18/20 Johana Groves, [facility] [address] [place], [place] [address] Pharmacist Pharmacist 08/28/20 11/26/20 Kiet Swain MD [address] [facility]15 [place] [address] Referring Physician Psychiatry 09/19/20 Winsome Pike APRN BUSINESS MANAGER [address] [address] Nurse Practitioner Psychiatry 09/19/20 Tori Hines, [facility] 2450 [place] [address] Wood Turning Lathe Operator Wood Turning Lathe Operator - Clinical 09/19/20 Miranda Queen [facility] [address] [place] [address] Pharmacist Pharmacist 11/12/20 Winsome Pike APRN BUSINESS MANAGER [address] [place] [address] Assigned Behavioral Health Provider 01/04/21 07/02/22 Marisel Armando MD [address] [place] [place] [address] 399675 Gastroenterology 02/05/21 Marisel Armando MD [address] [place] [place] [address] Assigned Gastroenterology Provider 03/08/21 12/24/22 Inderjit Ugalde MD 303 E [facility] 300 [place], [place] [address]187 Assigned Surgical Provider 02/15/21 08/20/22 Wesley Barrett MD 420 [facility] 96 [place] [address] Assigned Neuroscience Provider 05/10/21 Charles Jaramillo PA-C 6545 [facility] 450 [place] [address] Assigned Musculoskeletal Provider 04/26/21 10/15/22 Miranda Queen [facility] [address] [place] [address] Assigned MTM Pharmacist 12/05/21 03/26/22 [place] [address] [place] [address] Assigned PCP 01/23/22 05/14/22 [facility] [address] [place] [address] Assigned MTM Pharmacist 04/07/22 05/14/22 [place] [address] [place] [address] Assigned PCP 05/15/22 Katiana Read MD [address] [place] [address] 200 [place] [address] Assigned Endocrinology Provider 06/19/22 [place] [address] [place] [address] Assigned Behavioral Health Provider 07/03/22 12/31/22 Deena Garza APRN BUSINESS MANAGER [address] [place] 421107 Assigned Pain Medication Provider 07/19/22 10/29/22 Mary Del Cid, RAFAEL [address] [place] [address]77 Nurse Practitioner Nurse Practitioner 10/18/22 Elham Stack, [facility] 3033 [place] [address] Pharmacist Pharmacist 10/19/22 Emerita Potter, [facility] Clinic Heel Wheeler Wood Turning Lathe Operator - Clinical 10/29/22 11/02/22 [place] [address] [address] [place] [address] Assigned Pain Medication Provider 10/30/22 12/03/22 Michelle Guzman, DPM, Podiatry/Foot and Ankle Surgery [address] [place] [address] Assigned Musculoskeletal Provider 10/16/22 04/08/23 [place] [address] [place] [address] Assigned Pain Medication Provider 12/04/22 04/01/23 [place] [address] [place] [address] Nurse Practitioner Nurse Practitioner 01/17/23 01/17/23 Aubrey Jones MD [address] [place] [address] Cardiovascular Disease 03/28/23 Blanquita Morales Wash Barrel Leader Diabetes Education 04/25/23 Aubrey Jones MD [address] [place] [address] Assigned Heart and Vascular Provider 05/07/23 documented as of this encounter
--- OUTSIDE RECORDS SUMMARY | 2023-08-03 13:00 | XMS_ITS | Encounter Summary ---
Author Name Unknown Organization [place] Address [address] [place] [address]. [place] [address] Care Team Providers Care Multineedle Shirrer Name Role Phone Len Adhikari MD Primary Care Provider Jovany Gonzalez MD Unavailable [facility] NP Unavailable [phone] [facility] Unavailable Len Adhikari MD Unavailable [phone] Laurita Yang RN Unavailable Laurita Yang RN Unavailable Reanna Smith RD Unavailable Jamshid Granados MD Unavailable [phone] Katiana Read MD Unavailable Jovita Daly MD Unavailable Alexander López MD lab Jese Doyle MD Unavailable [phone] Roshni Nascimento RN Unavailable Unavailable Johana Groves [facility] Unavailable Kiet Swain MD Unavailable [phone] Winsome Pike APRN TRAVEL INSURANCE AGENT Unavailable Tori Hines SUPERVISOR CELL EFFICIENCY Unavailable Miranda Queen [facility] Unavailable Unavailable Winsome Pike APRN TRAVEL INSURANCE AGENT Unavailable [phone] Marisel Armando MD Unavailable Marisel Armando MD Unavailable Inderjit Ugalde MD Unavailable [phone] Wesley Barrett MD Unavailable +[phone] Charles Jaramillo PA-C Unavailable +[phone] Miranda Queen [facility] Unavailable Unavailable Leeann Rinaldi MD Unavailable Miranda Queen [facility] Unavailable Unavailable Dyan Fuentes MD Primary Care Provider [phone] Dyan Fuentes MD Unavailable [phone] Katiana Read MD Unavailable [phone] Meme Singleton PhD Unavailable +5400 Deena Garza SOFTWARE SYSTEMS ARCHITECT TRAVEL INSURANCE AGENT Unavailable +[phone] Mary Del Cid NP Unavailable + [phone] Elham Stack [facility] Unavailable [phone] Emerita Potter SUPERVISOR CELL EFFICIENCY Unavailable +[phone] Mary Del Cid NP Unavailable + [phone] [...] Team (Late st Contact Info) Description 01/03/2019 [facility] [address] [place] [phone] [place] [address] [address] [place], [place] [id number] MyChart Communication Social History Tobacco Use Types [...] st Contact Info) Description 08/18/2023 3:00 PM [employer] [employer] [facility] Office Visit [facility] [address] [place] [address] Katiana Read MD [address] [place] [address] documented as of this encounter Visit Diagnoses Not on filedocumented in this encounter Additional Health Concerns Infection Onset Date Last Indicated Resolved Time Rule Out COVID-19 08/19/2020 08/19/2020 08/19/2020 4:40 PM [employer] [employer] [facility] Rule Out C-difficile 02/27/2021 02/27/2021 021 6:10 [...] documented as of this encounter Care Teams Multineedle Shirrer Relationship Specialty Start Date End Date Len Adhikari MD PCP - General Family Practice 11/08/16 05/09/22 [place] [address] [place] [address] PCP - General Family Medicine 05/18/22 Jovany Gonzalez MD [facility] [address] [facility] 605 [place], [place] [address] Orthopedics 02/15/17 Staci Woodward NUT S[employer]TER [place] [address] [place] [address] Nurse Practitioner Nurse Practitioner Psych/Mental Health 05/10/17 [facility] ([facility] ([place]) 02/16/18 04/12/19 [place] [address] [facility] [place] [address] Assigned PCP 11/14/16 01/22/22 Laurita Yang, RN Clinic Tree Climber 12/29/18 01/07/19 Laurita Yang, RN Lead Tree Climber 01/08/[address] [place] [address] [place] [address] Appian Developer Dietitian, Registered 07/25/19 [place] [address] [facility] [address] [place] [address] Assigned Musculoskeletal Provider 05/02/20 09/13/20 Katiana Read MD [address] [place] [address] 200 [place] [address] Assigned Endocrinology Provider 05/02/20 08/01/21 Jovita Daly MD [facility] [place] [address] Assigned Surgical Provider 05/02/20 10/04/20 Alexander López MD [address] 24TH [facility] [address] 106 [place], [place] [address] Assigned Sleep Provider 05/02/20 11/15/20 Jese Doyle MD 909 [place], [place] [address] Assigned Pulmonology Provider 05/02/20 04/11/21 Roshni Nascimento, RN Personal Advocate & Liaison (PAL) Family Medicine 08/18/20 Johana Groves, [facility] [address] [facility] [place] [address] Pharmacist Pharmacist 08/28/20 11/26/20 Kiet Swain MD [address] [place] [address] Referring Physician Psychiatry 09/19/20 Winsome Pike APRN TRAVEL INSURANCE AGENT [address] [place] [address] Nurse Practitioner Psychiatry 09/19/20 Tori Hines, [facility] 2450 [place] [address] Plate Setter Plate Setter - Clinical 09/19/20 Miranda Queen, [facility] [address] [place] [address] Pharmacist Pharmacist 11/12/20 Winsome Pike APRN TRAVEL INSURANCE AGENT [address] [place] [address] [place] [address] Assigned Behavioral Health Provider 01/04/21 07/02/22 Marisel Armando MD [address] [place] [address] Gastroenterology 02/05/21 Marisel Armando MD [address] [place] [address] Assigned Gastroenterology Provider 03/08/21 12/24/22 Inderjit Ugalde MD [address] [facility] 300 [place] [address] Assigned Surgical Provider 02/15/21 08/20/22 Wesley Barrett MD [address] [place] [address] 96 [place] [address] Assigned Neuroscience Provider 05/10/21 Charles Jaramillo PA-C [address] [address] Assigned Musculoskeletal Provider 04/26/21 10/15/22 Miranda Queen [facility] [address] [place] [address] Assigned MTM Pharmacist 12/05/21 03/26/22 [place] [address] [place] [address] Assigned PCP 01/23/22 05/14/22 Miranda Queen [facility] [address] [place] [address] Assigned MTM Pharmacist 04/07/22 05/14/22 [place] [address] [address] [address] Assigned PCP 05/15/22 Katiana Read MD [address] [place] [address] Assigned Endocrinology Provider 06/19/22 [place] [address] [place] [address] Assigned Behavioral Health Provider 07/03/22 12/31/22 Deena Garza APRN TRAVEL INSURANCE AGENT [address] [place] [address] Assigned Pain Medication Provider 07/19/22 10/29/22 Mary Del Cid, RAFAEL [address] [place] [address] Nurse Practitioner Nurse Practitioner 10/18/22 Elham Stack, [facility] 3033 [place] [address] Pharmacist Pharmacist 10/19/22 Emerita Potter, [facility] Clinic Tree Climber Plate Setter - Clinical 10/29/22 11/02/22 [place] [address] [place] [address] Assigned Pain Medication Provider 10/30/22 12/03/22 Michelle Guzman DPM, Podiatry/Foot and Ankle Surgery [address] [place] [address] Assigned Musculoskeletal Provider 10/16/22 04/08/23 [place] [address] [place] [address] Assigned Pain Medication Provider 12/04/22 04/01/23 [place] [address] [address] [place] [address] Nurse Practitioner Nurse Practitioner 01/17/23 01/17/23 Aubrey Jones MD [address] [place] [address] Cardiovascular Disease 03/28/23 Blanquita Morales Appian Developer Diabetes Education 04/25/23 Aubrey Jones MD [address] [place] [address] Assigned Heart and Vascular Provider 05/07/23 documented as of this encounter
--- OUTSIDE RECORDS SUMMARY | 2023-08-03 13:00 | XMS_ITS | Encounter Summary ---
Author Name Unknown Organization [place] Address [address] [place] [address]. [place] [address] Care Team Providers Care Real Estate Investment Analyst Name Role Phone Len Adhikari MD Primary Care Provider [phone] Jovany Gonzalez MD Unavailable [facility] Unavailable [phone] [facility] Unavailable Len Adhikari MD Unavailable [phone] Laurita Yang RN Unavailable Laurita Yang RN Unavailable Reanna Smith RD Unavailable [phone] Jamshid Granados MD Unavailable [phone] Katiana Read MD Unavailable Jovita Daly MD Unavailable Alexander López MD lab Jese Doyle MD Unavailable [phone] Roshni Nascimento RN Unavailable Unavailable Johana Groves [facility] Unavailable Kiet Swain MD Unavailable Winsome Pike APRN CREATIVE DEVELOPER Unavailable Tori Hines MICROELECTRONICS ENGINEER Unavailable Miranda Queen [facility] Unavailable Unavailable Winsome Pike APRN CREATIVE DEVELOPER Unavailable [phone] Marisel Armando MD Unavailable Marisel Armando MD Unavailable Inderjit Ugalde MD Unavailable [phone] Wesley Barrett MD Unavailable +[phone] Charles Jaramillo PA-C Unavailable +[phone] Miranda Queen [facility] Unavailable Unavailable Leeann Rinaldi MD Unavailable Miranda Queen [facility] Unavailable Unavailable Dyan Fuentes MD Primary Care Provider [phone] Dyan Fuentes MD Unavailable [phone] Katiana Read MD Unavailable +[phone] Meme Singleton PhD Unavailable +[phone] Deena Garza APRN CREATIVE DEVELOPER Unavailable +[phone] Mary Del Cid NP Unavailable + [phone] Elham Stack [facility] Unavailable [phone] Emerita Potter MICROELECTRONICS ENGINEER Unavailable +[phone] Mary Del Cid NP Unavailable + [phone] Michelle Guzman DPM, Podiatry /Foot and Ankle Surgery Unavailable Dyan Fuentes MD Unavailable [phone] Mary Del Cid NP Unavailable + [phone] Aubrey Jones MD Unavailable +[phone] Blanquita Morales Unavailable Unavailable Aubrey Jones MD Unavailable [phone] Encounter Details Date Type Department Care Team (Late st Contact Info) Description 12/05/[address] [facility] [address] [place] [address] Criselda Ma, VIDHI CREATIVE DEVELOPER Social History Tobacco Use Types Packs/Day [...] (Late Contact Info) Description 08/18/2023 3:00 PM SALES CONSULTANT RESIDENTIAL MANAGER Office Visit [facility] [address] [place] [address] Katiana Read MD [address] [place] [address] 200 [place] [address] documented as of this encounter Visit Diagnoses Not on filedocumented in this encounter Additional Health Concerns Infection Onset Date Last Indicated Resolved Time Rule Out COVID-19 08/19/2020 08/19/2020 08/19/2020 4:40 PM SALES CONSULTANT RESIDENTIAL MANAGER Rule Out C-difficile 02/27/2021 02/27/2021 021 [...] of this encounter Care Teams Real Estate Investment Analyst Relationship Specialty Start Date End Date Len Adhikari MD PCP - General Family Practice 11/08/16 05/09/22 [place] [address] [place] [address] PCP - General Family Medicine 05/18/22 Jovany Gonzalez MD [facility] 6600 [facility] 605 [place], [place] [address] Orthopedics 02/15/17 Staci Woodward SMOKING TOBACCO PACKER HAND [place] [address] [place] [address] Nurse Practitioner Nurse Practitioner Psych/Mental Health 05/10/17 [facility] ([facility]), ([place]) 02/16/18 04/12/19 [place] [address] [facility] [address] Assigned PCP 11/14/16 01/22/22 Laurita Yang, RN Clinic Slab Lifting Engineer 12/29/18 01/07/19 Laurita Yang, RN Lead Slab Lifting Engineer 01/08/[address] [facility] [address] [place] [address] Animal Chiropractor Dietitian, Registered 07/25/19 [place] [address] [facility] [address] [place] [address] Assigned Musculoskeletal Provider 05/02/20 09/13/20 Katiana Read MD [address] [place], [place] [address] Assigned Endocrinology Provider 05/02/20 08/01/21 Jovita Daly MD [address] [place], [place] 823457 Assigned Surgical Provider 05/02/20 10/04/20 Alexander López MD 606 [facility] 106 [place], [place] [address] Assigned Sleep Provider 05/02/20 11/15/20 Jese Doyle MD 909 [place], [place] [address] Assigned Pulmonology Provider 05/02/20 04/11/21 Roshni Nascimento, ZITA Personal Advocate & Liaison (PAL) Family Medicine 08/18/20 Johana Groves, [facility] [address] [place] [address] Pharmacist Pharmacist 08/28/20 11/26/20 Kiet Swain MD 2450 [facility] [place] [address] Referring Physician Psychiatry 09/19/20 Winsome Pike APRN CREATIVE DEVELOPER [address] [address] Nurse Practitioner Psychiatry 09/19/20 Tori Hines, [facility] 2450 [place] [address] Pulverizer Operator Pulverizer Operator - Clinical 09/19/20 Miranda Queen [facility] [address] [place] [address] Pharmacist Pharmacist 11/12/20 Winsome Pike APRN CREATIVE DEVELOPER [address] [place] [address] Assigned Behavioral Health Provider 01/04/21 07/02/22 Marisel Armando MD [address] [place] [address] 852735 Gastroenterology 02/05/21 Marisel Armando MD [address] [place] [address] Assigned Gastroenterology Provider 03/08/21 12/24/22 Inderjit Ugalde MD [address] [facility] 300 [place], [place] [address] Assigned Surgical Provider 02/15/21 08/20/22 Wesley Barrett MD 420 [facility] 96 [place] [address] Assigned Neuroscience Provider 05/10/21 Charles Jaramillo PA-C 6545 [facility] 450 [place] [address] Assigned Musculoskeletal Provider 04/26/21 10/15/22 Miranda Queen [facility] [address] [place] [address] Assigned MTM Pharmacist 12/05/21 03/26/22 [place] [address] [place] [address] Assigned PCP 01/23/22 05/14/22 [facility] [address] [place] [address] Assigned MTM Pharmacist 04/07/22 05/14/22 [place] [address] [place] [address] Assigned PCP 05/15/22 Katiana Read MD [address] [place] [address] 200 [place] [address] Assigned Endocrinology Provider 06/19/22 [place] PhD [address] [place] [address] Assigned Behavioral Health Provider 07/03/22 12/31/22 Deena Garza APRN CREATIVE DEVELOPER [address] [place] 353567 Assigned Pain Medication Provider 07/19/22 10/29/22 Mary Del Cid, RAFAEL [address] [place] [address]957 Nurse Practitioner Nurse Practitioner 10/18/22 Elham Stack, [facility] 3033 [place] [address] Pharmacist Pharmacist 10/19/22 Emerita Potter, [facility] Clinic Slab Lifting Engineer Pulverizer Operator - Clinical 10/29/22 11/02/22 [place] [address] [address] [place] [place] [address] Assigned Pain Medication Provider 10/30/22 12/03/22 Michelle Guzman, DPM, Podiatry/Foot and Ankle Surgery [address] [place] [address] Assigned Musculoskeletal Provider 10/16/22 04/08/23 [place] [address] [place] [address] Assigned Pain Medication Provider 12/04/22 04/01/23 [place] [address] [place] [address] Nurse Practitioner Nurse Practitioner 01/17/23 01/17/23 Aubrey Jones MD [address] [place] [address] Cardiovascular Disease 03/28/23 Blanquita Morales Animal Chiropractor Diabetes Education 04/25/23 Aubrey Jones MD [address] [place] [address] Assigned Heart and Vascular Provider 05/07/23 documented as of this encounter
--- OUTSIDE RECORDS SUMMARY | 2023-08-03 13:00 | XMS_ITS | Encounter Summary ---
Author Name Unknown Organization [place] Address [address] [place] [address]. [place] [address] Care Team Providers Care Drum Sander Offbearer Name Role Phone Len Adhikari MD Primary Care Provider Jovany Gonzalez MD Unavailable [facility] Unavailable [phone] [facility] Unavailable [phone] Len Adhikari MD Unavailable [phone] Len Adhikari MD Unavailable Laurita Yang RN Unavailable Laurita Yang RN Unavailable Reanna Smith RD Unavailable [phone] Jamshid Granados MD Unavailable Katiana Read MD Unavailable [phone] Jovita Daly MD Unavailable [phone] Alexander López MD lable Jese Doyle MD Unavailable [phone] Roshni Nascimento RN Unavailable Unavailable Johana Groves [facility] Unavailable Kiet Swain MD Unavailable [phone] Winsome Pike KNIFE SETTER GRINDER MACHINE STATION HELPER Unavailable [phone] Tori Hines ROOFING APPRENTICE Unavailable Miranda Queen [facility] Unavailable Unavailable Winsome Pike VIDHI STATION HELPER Unavailable [phone] Marisel Armando MD Unavailable Marisel Armando MD Unavailable Inderjit Ugalde MD Unavailable [phone] Wesley Barrett MD Unavailable +[phone] Charles Jaramillo PA-C Unavailable [phone] Miranda Queen [facility] Unavailable Unavailable Leeann Rinaldi MD Unavailable Miranda Queen [facility] Unavailable Unavailable Dyan Fuentes MD Primary Care Provider [phone] Dyan Fuentes MD Unavailable [phone] Katiana Read MD Unavailable [phone] Meme Singleton PhD Unavailable [phone] Deena Garza KNIFE SETTER GRINDER MACHINE STATION HELPER Unavailable +[phone] Mary Del Cid NP Unavailable + [phone] Elham Stack [facility] Unavailable [phone] Emerita Potter ROOFING APPRENTICE Unavailable +[phone] Mary Del Cid NP Unavailable + [phone] Michelle Guzman DPM, Podiatry /Foot and Ankle Surgery Unavailable Dyan Feuntes MD Unavailable [phone] Mary Del Cid NP Unavailable + [phone] Aubrey Jones MD Unavailable [phone] Blanquita Morales Unavailable Unavailable Aubrey Jones MD Unavailable Reason for Visit * Reason Onset Date Comments MyChart Communication 04/07/2018 Encounter Details Date Type Department Care Team (Late st Contact Info) Description 04/07/2018 MyC Medical Advice [facility] [address] [place] [address] [place] [address] [place] [address] MyChart Communication Social History Tobacco [...] st Contact Info) Description 08/18/2023 3:00 PM CASKET ASSEMBLER METAL Office Visit [facility] [address] [place] [address] Katiana Read MD [address] [address] [place] [address] documented as of this encounter Visit Diagnoses Not on filedocumented in this encounter Additional Health Concerns Infection Onset Date Last Indicated Resolved Time Rule Out COVID-19 08/19/2020 08/19/2020 08/19/2020 4:40 PM CASKET ASSEMBLER METAL Rule Out C-difficile 02/27/2021 02/27/2021 021 6:10 [...] documented as of this encounter Care Teams Drum Sander Offbearer Relationship Specialty Start Date End Date Len Adhikari MD PCP - General Family Practice 11/08/16 05/09/22 [place] [address] [place] [address] PCP - Assigned PCP 11/14/16 09/12/18 [place] [address] [place] [address] PCP - General Family Medicine 05/18/22 Jovany Gonzalez MD [facility] [address] [place] [address] Orthopedics 02/15/17 Staci Woodward CLINICAL DATA MANAGEMENT MANAGER [facility] [address] [place] [address] Nurse Practitioner Nurse Practitioner Psych/Mental Health 05/10/17 [facility] ([facility] ([place]) 02/16/18 04/12/19 [place] [address] [facility] [place] [address] Assigned PCP 11/14/16 01/22/22 Laurita Yang, RN Clinic Application Trainer 12/29/18 01/07/19 Laurita Yang, RN Lead Application Trainer 01/08/[address] [place] [address] [place] [address] Drill Hand Dietitian, Registered 07/25/19 [place] [address] [facility] [address] [place] [address] Assigned Musculoskeletal Provider 05/02/20 09/13/20 Katiana Read MD [address] [place] [address] 200 [place], [place] [address] Assigned Endocrinology Provider 05/02/20 08/01/21 Jovita Daly MD [address] [place] [address] Assigned Surgical Provider 05/02/20 10/04/20 Alexander López MD [address] [place] [address] [address] [place] [address] Assigned Sleep Provider 05/02/20 11/15/20 Jese Doyle MD 909 [place], [place] [address] Assigned Pulmonology Provider 05/02/20 04/11/21 Roshni Nascimento RN Personal Advocate & Liaison (PAL) Family Medicine 08/18/20 Johana Groves, [facility] [address] [facility] [address] [place], [place] [address] Pharmacist Pharmacist 08/28/20 11/26/20 Kiet Swain MD [address] [place] [id number] Referring Physician Psychiatry 09/19/20 Winsome Pike APRN STATION HELPER [address] [place] [id number] Nurse Practitioner Psychiatry 09/19/20 Tori Hines, [facility] Critical access hospital0 [place], [place] [phone] Telephone Answering Service Operator Telephone Answering Service Operator - Clinical 09/19/20 Miranda Queen, [facility] [address] [place] [address] Pharmacist Pharmacist 11/12/20 Winsome Pike APRN STATION HELPER [address] [place] [address] Assigned Behavioral Health Provider 01/04/21 07/02/22 Marisel Armando MD [address] [place] [address] Gastroenterology 02/05/21 Marisel Armando MD [address] [place] [address] Assigned Gastroenterology Provider 03/08/21 12/24/22 Inderjit Ugalde MD [address] [address] Assigned Surgical Provider 02/15/21 08/20/22 Wesley Barrett MD [address] [place] [address] Assigned Neuroscience Provider 05/10/21 Charles Jaramillo PA-C 6545 [facility] [place] [address] [address] Assigned Musculoskeletal Provider 04/26/21 10/15/22 Miranda Queen [facility] [address] [place] [address] Assigned MTM Pharmacist 12/05/21 03/26/22 [place] [address] [place] [address] Assigned PCP 01/23/22 05/14/22 Miranda Queen [place]PH [address] [place] [address] Assigned MTM Pharmacist 04/07/22 05/14/22 [place] [address] [place] [address] Assigned PCP 05/15/22 Katiana Read MD [address] [address] Assigned Endocrinology Provider 06/19/22 [place] [address] [place] [address] Assigned Behavioral Health Provider 07/03/22 12/31/22 Deena Garza APRN STATION HELPER [address] [place] [address] Assigned Pain Medication Provider 07/19/22 10/29/22 Mary Del Cid, RA[place]EL [address] [place] [address] Nurse Practitioner Nurse Practitioner 10/18/22 Elham Stack, [facility] 3033 [place] [address] Pharmacist Pharmacist 10/19/22 Emerita Potter, [facility] Clinic Application Trainer Telephone Answering Service Operator - Clinical 10/29/22 11/02/22 [place] [address] [place] [address] Assigned Pain Medication Provider 10/30/22 12/03/22 Michelle Guzman, DPAlisha, Podiatry/Foot and Ankle Surgery [address] [place] [address] Assigned Musculoskeletal Provider 10/16/22 04/08/23 [place] [address] [address] [address] Assigned Pain Medication Provider 12/04/22 04/01/23 [place] [address] [address] [address] Nurse Practitioner Nurse Practitioner 01/17/23 01/17/23 Aubrey Jones MD [address] [place] [address] Cardiovascular Disease 03/28/23 Blanquita Morales Drill Hand Diabetes Education 04/25/23 Aubrey Jones MD [address] [place] [address] Assigned Heart and Vascular Provider 05/07/23 documented as of this encounter
--- OUTSIDE RECORDS SUMMARY | 2023-08-03 13:00 | XMS_ITS | Encounter Summary ---
Author Name Unknown Organization [place] Address [address] [place] [address]. [place] [address] Care Team Providers Care Orthopaedic Nurse Name Role Phone Lne Adhikari MD Primary Care Provider Jovany Gonzalez MD Unavailable [facility] Unavailable [phone] [facility] Unavailable Len Adhikari MD Unavailable Laurita Yang RN Unavailable [phone] Laurita Yang RN Unavailable Reanna Smith [address] Unavailable Jamshid Granados MD Unavailable [phone] Katiana Read MD Unavailable Jovita Daly MD Unavailable Alexander López MD lab Jese Doyle MD Unavailable [phone] Roshni Nascimento RN Unavailable Unavailable Johana Groves [facility] Unavailable Kiet Swain MD Unavailable [phone] Winsome Pike APRN FIRE BOAT ENGINEER Unavailable Tori Hines METALLOGRAPHIC TECHNICIAN Unavailable Miranda Queen [facility] Unavailable Unavailable Winsome Pike APRN FIRE BOAT ENGINEER Unavailable [phone] Marisel Armando MD Unavailable Marisel Armando MD Unavailable Inderjit Ugalde MD Unavailable [phone] Wesley Barrett MD Unavailable [phone] Charles Jaramillo PA-C Unavailable [phone] Miranda Queen [facility] Unavailable Unavailable Leeann Rinaldi MD Unavailable Miranda Queen [facility] Unavailable Unavailable Dyan Fuentes MD Primary Care Provider [phone] Dyan Fuentes MD Unavailable [phone] Katiana Read MD Unavailable +[phone] Meme Singleton PhD Unavailable +5400 Deena Garza APRN FIRE BOAT ENGINEER Unavailable +[phone] Mary Del Cid NP Unavailable + [phone] Elham Stack [facility] Unavailable +[phone] Emerita Potter METALLOGRAPHIC TECHNICIAN Unavailable +[phone] Mary Del Cid NP Unavailable + [phone] Michelle Guzman DPM, Podiatry /Foot and Ankle Surgery Unavailable Dyan Fuentes MD Unavailable [phone] Mary Del Cid NP Unavailable + [phone] Aubrey Jones MD Unavailable [phone] Blanquita Morales Unavailable Unavailable Aubrey Jones MD Unavailable [phone] Encounter Details Date Type Department Care Team (Late st Contact Info) Description 09/27/2018 MyC Medical Advice [facility] [address] [place] [address] Roshni Nascimento, RN Social History Tobacco [...] (Late Contact Info) Description 08/18/2023 3:00 PM RAILROAD EMERGENCY SERVICES MANAGER Office Visit [facility] [address] [place] [address] Katiana Read MD [address] [place] [address] [address] [place] [address] documented as of this encounter Visit Diagnoses Not on filedocumented in this encounter Additional Health Concerns Infection Onset Date Last Indicated Resolved Time Rule Out COVID-19 08/19/2020 08/19/2020 08/19/2020 4:40 PM RAILROAD EMERGENCY SERVICES MANAGER Rule Out C-difficile 02/27/2021 02/27/2021 021 [...] documented as of this encounter Care Teams Orthopaedic Nurse Relationship Specialty Start Date End Date Len Adhikari MD PCP - General Family Practice 11/08/16 05/09/22 [place] [address] [place] [address] PCP - General Family Medicine 05/18/22 Jovany Gonzalez MD [facility] 6600 [facility] [address] [place], [place] [address] Orthopedics 02/15/17 Staci Woodward MACHINE PRESSER [facility] [address] [place], [place] [address] Nurse Practitioner Nurse Practitioner Psych/Mental Health 05/10/17 [facility] ([facility] ([place]) 02/16/18 04/12/19 [place] [address] [facility] [place] [address] Assigned PCP 11/14/16 01/22/22 Laurita Yang, RN Clinic Vp Organizational Development 12/29/18 01/07/19 Laurita Yang RN Lead Vp Organizational Development 01/08/[address] [facility] [address] [place] [address] Closing Agent Dietitian, Registered 07/25/19 [place] [address] [facility] [address] [place] [address] Assigned Musculoskeletal Provider 05/02/20 09/13/20 Katiana Read MD [address] [place], [place] [address] Assigned Endocrinology Provider 05/02/20 08/01/21 Jovita Daly MD [address] [place], [place] [address] Assigned Surgical Provider 05/02/20 10/04/20 Alexander López MD [address] [place], [place] [address] Assigned Sleep Provider 05/02/20 11/15/20 Jese Doyle MD 909 [facility] [place], [place] [address] Assigned Pulmonology Provider 05/02/20 04/11/21 Roshni Nascimento, RN Personal Advocate & Liaison (PAL) Family Medicine 08/18/20 Johana Groves, [facility] [address] [place], [place] [phone] Pharmacist Pharmacist 08/28/20 11/26/20 Kite Swain MD 2450 [facility] [address] [place] [address] Referring Physician Psychiatry 09/19/20 Winsome Pike APRN FIRE BOAT ENGINEER [address] [place] [address] 061194 Nurse Practitioner Psychiatry 09/19/20 Tori Hines, [facility] 2450 [place], [place] [address] Tray Line Worker Tray Line Worker - Clinical 09/19/20 Miranda Queen [facility] [address] [place] [address] Pharmacist Pharmacist 11/12/20 Winsome Pike APRN FIRE BOAT ENGINEER [address] [place] [address] Assigned Behavioral Health Provider 01/04/21 07/02/22 Marisel Armando MD [address] [place] [address] Gastroenterology 02/05/21 Marisel Armando MD [address] [place] [address] Assigned Gastroenterology Provider 03/08/21 12/24/22 Inderjit Ugalde MD [address] [facility] 300 [place] [address] Assigned Surgical Provider 02/15/21 08/20/22 Wesley Barrett MD [address] [place] [address] 96 [place] [address] Assigned Neuroscience Provider 05/10/21 Charles Jaramillo PA-C 6545 [facility] 450 [place] [address] Assigned Musculoskeletal Provider 04/26/21 10/15/22 Miranda Queen [facility] [address] [place] [address] Assigned MTM Pharmacist 12/05/21 03/26/22 [place] [address] [place] [address] Assigned PCP 01/23/22 05/14/22 Miranda Queen [facility] [address] [place] [address] Assigned MTM Pharmacist 04/07/22 05/14/22 [place] [address] [place] [address] Assigned PCP 05/15/22 Katiana Read MD [address] [place] [address] 200 [place] [address] Assigned Endocrinology Provider 06/19/22 [place] [address] [place] [address] Assigned Behavioral Health Provider 07/03/22 12/31/22 Deena Garza APRN FIRE BOAT ENGINEER [address] [place] [address] Assigned Pain Medication Provider 07/19/22 10/29/22 Mary Del Cid, MACHINE PRESSER [address] [place] [address] Nurse Practitioner Nurse Practitioner 10/18/22 Elham Stack, [facility] [address] [place] [address] Pharmacist Pharmacist 10/19/22 Emerita Potter, [facility] Clinic Vp Organizational Development Tray Line Worker - Clinical 10/29/22 11/02/22 [place] [address] [address] [place] [address] Assigned Pain Medication Provider 10/30/22 12/03/22 Michelle Guzman, DPM, Podiatry/Foot and Ankle Surgery [address] [place] [address] Assigned Musculoskeletal Provider 10/16/22 04/08/23 [place] [address] [place] [address] Assigned Pain Medication Provider 12/04/22 04/01/23 [place] [address] [address] [place] [address] Nurse Practitioner Nurse Practitioner 01/17/23 01/17/23 Aubrey Jones MD [address] [place] [address] Cardiovascular Disease 03/28/23 Blanquita Morales Closing Agent Diabetes Education 04/25/23 Aubrey Jones MD [address] [place] [address] Assigned Heart and Vascular Provider 05/07/23 documented as of this encounter
--- OUTSIDE RECORDS SUMMARY | 2023-08-03 13:00 | XMS_ITS | Encounter Summary ---
Author Name Unknown Organization [facility] Address [address] [place] [address]. [place] [address] Care Team Providers Care Hand Buffer Name Role Phone Len Adhikari MD Primary Care Provider Jovany Gonzalez MD [facility]available [facility] Un[facility] [phone] [facility] Unavailable Len Adhikari MD Unavailable [phone] Laurita Yang RN Unavailable [phone] Laurita Yang RN Unavailable Reanna Smith RD Unavailable Jamshid Granados MD Unavailable [phone] Katiana Read MD Unavailable Jovita Daly MD Unavailable Alexander López MD lab Jese Doyle MD Unavailable [phone] Roshni Nascimento RN Unavailable Unavailable Johana Groves [facility] Unavailable Kiet Swain MD Unavailable [phone] Winsome Pike APRN TRANSPORTATION LEAD Unavailable Tori Hines OR FIRST ASSIST REGISTERED NURSE Unavailable Miranda Queen [facility] Unavailable Unavailable Winsome Pike APRN TRANSPORTATION LEAD Unavailable [phone] Marisel Armando MD Unavailable Marisel Armando MD Unavailable Inderjit Ugalde MD Unavailable [phone] Wesley Barrett MD Unavailable +[phone] Charles Jaramillo PA-C Unavailable +[phone] Miranda Queen [facility] Unavailable Unavailable Leeann Rinaldi MD Unavailable Miranda Queen [facility] Unavailable Unavailable Dyan Fuentes MD Primary Care Provider [phone] Dyan Fuentes MD Unavailable [phone] Katiana Read MD Unavailable [phone] Meme Singleton PhD Unavailable +[phone] Deena Garza SERVICE SUPERVISOR TRANSPORTATION LEAD Unavailable +[phone] Mary Del Cid NP Unavailable + [phone] Elham Stack [facility] Unavailable +[phone] Emerita Potter OR FIRST ASSIST REGISTERED NURSE Unavailable +[phone] Mary Del Cid NP Unavailable + [phone] [...] Contact Info) Description 12/25/2018 MyC Medical Advice [facility] [address] [place] [phone] [place] [address] [address] [place], [place] [address] Home Care/Hospice (orders) Social History Tobacco Use [...] Contact Info) Description 08/18/2023 3:00 PM SALES ADVISORY MANAGER Office Visit [facility] [address] [place] [address] Katiana Read MD [address] [address] [place] [address] documented as of this encounter Visit Diagnoses Not on filedocumented in this encounter Additional Health Concerns Infection Onset Date Last Indicated Resolved Time Rule Out COVID-19 08/19/2020 08/19/2020 08/19/2020 4:40 PM SALES ADVISORY MANAGER Rule Out C-difficile 02/27/2021 02/27/2021 021 [...] as of this encounter Care Teams Hand Buffer Relationship Specialty Start Date End Date Len Adhikari MD PCP - General Family Practice 11/08/16 05/09/22 [place] [address] [place] [address] PCP - General Family Medicine 05/18/22 Jovany Gonzalez MD [facility] [address] [facility] 605 [place] [address] Orthopedics 02/15/17 Staci Woodward, MICRO PHOTOGRAPHER [facility] [address] [place], [place] [phone] Nurse Practitioner Nurse Practitioner Psych/Mental Health 05/10/17 [facility] ([facility]), ([place]) 02/16/18 04/12/19 [place] [address] [facility]3][place] [address] Assigned PCP 11/14/16 01/22/22 Laurita Yang, RN Clinic Tracer Powder Blender 12/29/18 01/07/19 Laurita Yang RN Lead Tracer Powder Blender 01/08/[address] [facility] [address] [place] [address] Line Technician Dietitian, Registered 07/25/19 [place] [address] [facility] [address] [place], [place] [address] Assigned Musculoskeletal Provider 05/02/20 09/13/20 Katiana Read MD [address] [facility] [address] [place], [place] [address] Assigned Endocrinology Provider 05/02/20 08/01/21 Jovita Daly MD [address] [place], [place] [address] Assigned Surgical Provider 05/02/20 10/04/20 Alexander López MD [address] [facility] [address] [place], [place] [address] Assigned Sleep Provider 05/02/20 11/15/20 Jese Doyle MD 909 [place] [address] Assigned Pulmonology Provider 05/02/20 04/11/21 Roshni Nascimento RN Personal Advocate & Liaison (PAL) Family Medicine 08/18/20 Johana Groves [facility] [address] [place] [address] Pharmacist Pharmacist 08/28/20 11/26/20 Kiet Swain MD [address] [place] [address] [place] [address] Referring Physician Psychiatry 09/19/20 Winsome Pike APRN TRANSPORTATION LEAD [address] [place] [address] Nurse Practitioner Psychiatry 09/19/20 Tori Hines, [facility] [address] [place] [address] Can Bander Operator Can Bander Operator - Clinical 09/19/20 Miranda Queen [facility] [address] [place] [address] Pharmacist Pharmacist 11/12/20 Wisnome Pike APRN TRANSPORTATION LEAD [address] [place] [address] Assigned Behavioral Health Provider 01/04/21 07/02/22 Marisel Armando MD [address] [place] [address] Gastroenterology 02/05/21 Marisel Armando MD [address] [place] [address] Assigned Gastroenterology Provider 03/08/21 12/24/22 Inderjit Ugalde MD [address] [facility] 300 [place] [address] Assigned Surgical Provider 02/15/21 08/20/22 Wesley Barrett MD 420 [facility] 96 [place] [address] Assigned Neuroscience Provider 05/10/21 Charles Jaramillo PA-C [address] [facility] 450 [place] [address] Assigned Musculoskeletal Provider 04/26/21 10/15/22 [facility] [address] [place] [address] Assigned MTM Pharmacist 12/05/21 03/26/22 [place] [address] [place] [address] Assigned PCP 01/23/22 05/14/22 [facility] [address] [place] [address] Assigned MTM Pharmacist 04/07/22 05/14/22 [place] [address] [place] [address] Assigned PCP 05/15/22 Katiana Read MD [address] [place] [address] 200 [place] [address] Assigned Endocrinology Provider 06/19/22 [place] [address] [place] [address] Assigned Behavioral Health Provider 07/03/22 12/31/22 Deena Garza, SERVICE SUPERVISOR TRANSPORTATION LEAD [address] [address] [place] 986707 Assigned Pain Medication Provider 07/19/22 10/29/22 [place] [address] [address] [place] [address] Nurse Practitioner Nurse Practitioner 10/18/22 Elham Stack, [facility] [address] [place], [place] [address] Pharmacist Pharmacist 10/19/22 Emerita Potter, [facility] Clinic Tracer Powder Blender Can Bander Operator - Clinical 10/29/22 11/02/22 [place] [address] [address] [place] [address] Assigned Pain Medication Provider 10/30/22 12/03/22 Michelle Guzman, DPM, Podiatry/Foot and Ankle Surgery [address] [address] [place] [address] Assigned Musculoskeletal Provider 10/16/22 04/08/23 [place] [address] [place] [address] Assigned Pain Medication Provider 12/04/22 04/01/23 [place] [address] [address] [place] [address] Nurse Practitioner Nurse Practitioner 01/17/23 01/17/23 Aubrey Jones MD [address] [place] [address] Cardiovascular Disease 03/28/23 Blanquita Morales Line Technician Diabetes Education 04/25/23 Aubrey Jones MD [address] [place] [address] Assigned Heart and Vascular Provider 05/07/23 documented as of this encounter
--- OUTSIDE RECORDS SUMMARY | 2023-08-03 13:01 | XMS_ITS | Encounter Summary ---
Author Name Unknown Organization [facility] Address [address] [place] [address]. [place] [address] Care Team Providers Care Pigment Processor Name Role Phone Len Adhikari MD Primary Care Provider Jovany Gonzalez MD [facility]available [facility] Unavailable [phone] [facility] Unavailable Len Adhikari MD Unavailable [phone] Len Adhikari MD Unavailable Laurita Yang RN Unavailable [phone] Laurita Yang RN Unavailable Reanna Smith RD Unavailable [phone] Jamshid Granados MD Unavailable Katiana Read MD Unavailable [phone] Jovita Daly MD Unavailable [phone] Alexander López MD lable Jese Doyle MD Unavailable [phone] Roshni Nascimento RN Unavailable Unavailable Johana Groves [facility] Unavailable [phone] Kiet Swain MD Unavailable Winsome Pike FISHER PURSE SEINE TICKET TAKER Unavailable +[phone] Tori Hines MOLDER SETTER Unavailable Miranda Queen [facility] Unavailable Unavailable Winsome Pike VIDHI TICKET TAKER Unavailable [phone] Marisel Armando MD Unavailable Marisel Armando MD Unavailable Inderjit Ugalde MD Unavailable [phone] Wesley Barrett MD Unavailable +[phone] Charles Jaramillo PA-C Unavailable +[phone] Miranda Queen [facility] Unavailable Unavailable Leeann Rinaldi MD Unavailable Miranda Queen [facility] Unavailable Unavailable Dyan Fuentes MD Primary Care Provider [phone] Dyan Fuentes MD Unavailable [phone] Katiana Read MD Unavailable [phone] Meme Singleton PhD Unavailable [phone] Deena Garza FISHER PURSE SEINE TICKET TAKER Unavailable +[phone] Mary Del Cid NP Unavailable + [phone] Elham Stack [facility] Unavailable +[phone] Emerita Potter MOLDER SETTER Unavailable +[phone] Mary Del Cid NP Unavailable + [phone] [...] (Late Contact Info) Description 02/18/2018 Documentation Only [facility] [address] [place] [phone] [place] [address] [place] [address] Home Care/Hospice Social History Tobacco Use Types [...] (Late Contact Info) Description 08/18/2023 3:00 PM MAIL CARRIER TECHNICIAN Office Visit [facility] [address] [facility] [address] [place] [address] Katiana Read MD [address] [place] [address] documented as of this encounter Visit Diagnoses Not on filedocumented in this encounter Additional Health Concerns Infection Onset Date Last Indicated Resolved Time Rule Out COVID-19 08/19/2020 08/19/2020 08/19/2020 4:40 PM MAIL CARRIER TECHNICIAN Rule Out C-difficile 02/27/2021 02/27/2021 021 [...] documented as of this encounter Care Teams Pigment Processor Relationship Specialty Start Date End Date Len Adhikari MD PCP - General Family Practice 11/08/16 05/09/22 [place] [address] [facility] [place] [address] PCP - Assigned PCP 11/14/16 09/12/18 [place] [address] [place] [address] PCP - General Family Medicine 05/18/22 Jovany Gonzalez MD [facility] [address] [facility] 605 [place], [place] [address] Orthopedics 02/15/17 Staci Woodward [facility] [address] [place], [place] [address] Nurse Practitioner Nurse Practitioner Psych/Mental Health 05/10/17 Care, [facility] ([facility]), ([place]) 02/16/18 04/12/19 [place] [address] [facility] [place] [address] Assigned PCP 11/14/16 01/22/22 Laurita Yang, RN Clinic Research & Analytics Manager 12/29/18 01/07/19 Laurita Yang RN Lead Research & Analytics Manager 01/08/[address] [facility] [address] [place], [place] [address] Director Outpatient Services Dietitian, Registered 07/25/19 [place] [address] [facility] [address] [place], [place] [address] Assigned Musculoskeletal Provider 05/02/20 09/13/20 Katiana Read MD [address] [facility] 200 [place], [place] [address] Assigned Endocrinology Provider 05/02/20 08/01/21 Jovita Daly MD [address] [place], [place] 62[address]87 Assigned Surgical Provider 05/02/20 10/04/20 Alexander López MD 606 [facility] 106 [place], [place] 84[address] Assigned Sleep Provider 05/02/20 11/15/20 Jese Dolye MD [address] [place] [address] 879435 Assigned Pulmonology Provider 05/02/20 04/11/21 Roshni Nascimento, RN Personal Advocate & Liaison (PAL) Family Medicine 08/18/20 Johana Groves, [facility] [address] [place], [place] [address] Pharmacist Pharmacist 08/28/20 11/26/20 Kiet Swain MD [address] [place] [address] 736784 Referring Physician Psychiatry 09/19/20 Winsome Pike APRN TICKET TAKER [address] [place] [address] 613324 Nurse Practitioner Psychiatry 09/19/20 Tori Hines, [facility] [address] [place] [address] [phone] Hand Leather Trimmer Hand Leather Trimmer - Clinical 09/19/20 [facility] [address] [place] [address] Pharmacist Pharmacist 11/12/20 Winsome Pike APRN TICKET TAKER [address] [place] [address] [phone] Assigned Behavioral Health Provider 01/04/21 07/02/22 Marisel Armando MD [address] [place] [address] 181785 Gastroenterology 02/05/21 Marisel Armando MD 909 [place] [address] Assigned Gastroenterology Provider 03/08/21 12/24/22 Inderjit Ugalde MD [address] [place] [address] Assigned Surgical Provider 02/15/21 08/20/22 Wesley Barrett MD 420 [facility] 96 [place] [address] Assigned Neuroscience Provider 05/10/21 Charles Jaramillo PA-C 6545 [facility] 450 [place] [address] Assigned Musculoskeletal Provider 04/26/21 10/15/22 Miranda Queen [facility] [address] [place] [address] Assigned MTM Pharmacist 12/05/21 03/26/22 [place] [address] [place] [address] Assigned PCP 01/23/22 05/14/22 Miranda Queen [facility] [address] [place] [address] Assigned MTM Pharmacist 04/07/22 05/14/22 [place] [address] [place] [address] Assigned PCP 05/15/22 Katiana Read MD [address] [place] [address] Assigned Endocrinology Provider 06/19/22 [place] [address] [place] [place] [address] Assigned Behavioral Health Provider 07/03/22 12/31/22 Deena Garaz APRN TICKET TAKER [address] [place] [place] [address] Assigned Pain Medication Provider 07/19/22 10/29/22 [place] [address] [place] [place] [address] Nurse Practitioner Nurse Practitioner 10/18/22 Elham Stack, [facility] 3033 [place] [address] Pharmacist Pharmacist 10/19/22 Emerita Potter, [facility] Clinic Research & Analytics Manager Hand Leather Trimmer - Clinical 10/29/22 11/02/22 Mary Del Cid, RAFAEL [address] [address] [place] [address] Assigned Pain Medication Provider 10/30/22 12/03/22 Michelle Guzman DPM, Podiatry/Foot and Ankle Surgery [address] [place] [address] Assigned Musculoskeletal Provider 10/16/22 04/08/23 [place] [address] [address] [place] [address] Assigned Pain Medication Provider 12/04/22 04/01/23 [place] [address] [place] [place] [address] Nurse Practitioner Nurse Practitioner 01/17/23 01/17/23 Aubrey Jones MD [address] [place] [address] Cardiovascular Disease 03/28/23 Blanquita Morales Director Outpatient Services Diabetes Education 04/25/23 Aubrey Jones MD [address] [place] [address] Assigned Heart and Vascular Provider 05/07/23 documented as of this encounter
--- OUTSIDE RECORDS SUMMARY | 2023-08-03 13:01 | XMS_ITS | Encounter Summary ---
Author Name Unknown Organization [facility] Address [address] [place] [address]. [place] [address] Care Team Providers Care Tip Scourer Name Role Phone Len Adhikari MD Primary Care Provider [phone] Jovany Gonzalez MD Unavailable Alem Rodriguez RN Unavailable [facility] Unavailable [phone] [facility] Unavailable Len Adhikari MD Unavailable Len Adhikari MD Unavailable [phone] Laurita Yang RN Unavailable [phone] Laurita Yang RN Unavailable [phone] Unavailable Jamshid Granados MD Unavailable Katiana Read MD Unavailable [phone] Jovita Daly MD Unavailable [phone] Alexander López MD Unamarcelina lable Jese Doyle MD Unavailable Roshni Nascimento RN Unavailable Unavailable Johana Groves [facility] Unavailable Kiet Swain MD Unavailable [phone] Winsome Pike APRN DRY BOSS Unavailable +[phone] Tori Hines CEMENT TESTER ASSISTANT Unavailable Miranda Queen [facility] Unavailable Unavailable Winsome Pike APRN DRY BOSS Unavailable [phone] Marisel Armando MD Unavailable Marisel Armando MD Unavailable Inderjit Ugalde MD Unavailable [phone] Wesley Barrett MD Unavailable +[phone] Charles Jaramillo PA-C Unavailable +[phone] Miranda Queen [facility] Unavailable Unavailable Leeann Rinaldi MD Unavailable Miranda Queen [facility] Unavailable Unavailable Dyan Fuentes MD Primary Care Provider [phone] Dyan Fuentes MD Unavailable [phone] Katiana Read MD Unavailable [phone] Meme Singleton PhD Unavailable +[phone] Deena Garza [employer] FLATBED TRUCK DRIVER DRY BOSS Unavailable [phone] Mary Del Cid NP Unavailable + [phone] Elham Stack RPH Unavailable [phone] Emerita Potter CEMENT TESTER ASSISTANT Unavailable [phone] Mary Del Cid NP Unavailable + [phone] Michelle Guzman DPM, Podiatry /Foot and Ankle Surgery Unavailable Dyan Fuentes MD Unavailable [phone] Mary Del Cid NP Unavailable + [phone] Aubrey Jones MD Unavailable [phone] Blanquita Morales Unavailable Unavailable Aubrey Jones MD Unavailable [phone] Reason for Visit * Reason Onset Date Comments MyChart Communication 09/27/2017 Encounter Details Date Type Department Care Team (Late st Contact Info) Description 09/27/2017 MyC Medical Advice M [facility] [address] [place] [address] [place] [address] [place] [address] MyChart Communication Social History Tobacco [...] and uncontrolled jerking and body movements. \ Diesel Engineer did talk with pt yesterday to review labs and schedule OV for today. She did not report being ill at that time. She sounded well on the phone and was appropriate and alert during the phone call. Roshni Nascimento RN documented in this encounter Plan of Treatment Upcoming Encounters Date Type Department Care Team (Late st Contact Info) Description 08/18/2023 3:00 PM RETORT PRESS OPERATOR Office Visit [facility] [address] [place] [address] [place] [address] Katiana Read MD [address] [place] [address] [address] [place] [address] documented as of this encounter Visit Diagnoses Not on filedocumented in this encounter Additional Health Concerns Infection Onset Date Last Indicated Resolved Time Rule Out COVID-19 08/19/2020 08/19/2020 08/19/2020 4:40 PM RETORT PRESS OPERATOR Rule Out C-difficile 02/27/2021 02/27/2021 021 [...] documented as of this encounter Care Teams Tip Scourer Relationship Specialty Start Date End Date Len Adhikari MD PCP - General Family Practice 11/08/16 05/09/22 [place] [address] [place] [address] PCP - Assigned PCP 11/14/16 09/12/18 [place] [address] [place] [address] PCP - General Family Medicine 05/18/22 Jovany Gonzalez MD [facility] [address] [facility] 605 [place] [address] Orthopedics 02/15/17 Alem Rodriguez, [facility] Clinic Captain Of Guards 05/10/17 02/08/18 Staci Woodward DOG FOOD SHREDDER OPERATOR [place] [address] [place], [place] 978[address] Nurse Practitioner Nurse Practitioner Psych/Mental Health 05/10/17 [facility] ([facility] ([place]) 02/16/18 04/12/19 [place] [address] [facility] [place] [address] Assigned PCP 11/14/16 01/22/22 Laurita Yang, RN Clinic Captain Of Guards 12/29/18 01/07/19 Laurita Yang, RN Lead Captain Of Guards 01/08/[address] [place] [address] [place] [address] Oracle Adf Consultant Dietitian, Registered 07/25/19 [place] [address] [facility] [address] [place], [place] 8[address] Assigned Musculoskeletal Provider 05/02/20 09/13/20 Katiana Read MD [address] [place] [address] 200 [place], [place] [address] Assigned Endocrinology Provider 05/02/20 08/01/21 Jovita Daly MD [address] [place], [place] [address] Assigned Surgical Provider 05/02/20 10/04/20 Alexander López MD [address] [place] [address] 106 [place], [place] [address] Assigned Sleep Provider 05/02/20 11/15/20 Jese Doyle MD 909 [place] [address] Assigned Pulmonology Provider 05/02/20 04/11/21 Roshni Nascimento RN Personal Advocate & Liaison (PAL) Family Medicine 08/18/20 [facility] [address] [facility] [place] [address] Pharmacist Pharmacist 08/28/20 11/26/20 Kiet Swain MD [address] [place] [address] Referring Physician Psychiatry 09/19/20 Winsome Pike APRN DRY BOSS [address] [address] Nurse Practitioner Psychiatry 09/19/20 Tori Hines, [facility]0 [place] [address] Commutator Undercutter Commutator Undercutter - Clinical 09/19/20 Miranda Queen, [facility] [address] [place] [address] Pharmacist Pharmacist 11/12/20 Winsome Pike APRN DRY BOSS [address] [place] [address] [phone] Assigned Behavioral Health Provider 01/04/21 07/02/22 Marisel Armando MD [address] [place] [address] 740845 Gastroenterology 02/05/21 Marisel Armando MD [address] [place] [address] 512565 Assigned Gastroenterology Provider 03/08/21 12/24/22 Inderjit Ugalde MD [address] [facility] 300 [place], [place] 757507 Assigned Surgical Provider 02/15/21 08/20/22 Wesley Barrett MD 420 [facility] 96 [place], [place] 58[address] Assigned Neuroscience Provider 05/10/21 Charles Jaramillo PA-C [address] [address] Assigned Musculoskeletal Provider 04/26/21 10/15/22 Miranda Queen RPH [address] [place] [address] Assigned MTM Pharmacist 12/05/21 03/26/22 [place] [address] [place] [address] Assigned PCP 01/23/22 05/14/22 Miranda Queen [facility] [address] [place] [address] Assigned MTM Pharmacist 04/07/22 05/14/22 [place] [address] [place] [address] Assigned PCP 05/15/22 Katiana Read MD [address] [place] [address] Assigned Endocrinology Provider 06/19/22 [place] [address] [place] [address] Assigned Behavioral Health Provider 07/03/22 12/31/22 Deena Garza APRN DRY BOSS [address] [place] [address] Assigned Pain Medication Provider 07/19/22 10/29/22 Mary Del Cid, [place]FAEL [address] [place] [address] Nurse Practitioner Nurse Practitioner 10/18/22 [facility] 3033 [place] [address] Pharmacist Pharmacist 10/19/22 Emerita Potter, [facility] Clinic Captain Of Guards Commutator Undercutter - Clinical 10/29/22 11/02/22 [place] [address] [address] [place] [address] Assigned Pain Medication Provider 10/30/22 12/03/22 Michelle Guzman DPM, Podiatry/Foot and Ankle Surgery [address] [place] [address] Assigned Musculoskeletal Provider 10/16/22 04/08/23 [place] [address] [place] [address] Assigned Pain Medication Provider 12/04/22 04/01/23 [place] [address] [place] [address] Nurse Practitioner Nurse Practitioner 01/17/23 01/17/23 Aubrey Jones MD [address] [place] [address] Cardiovascular Disease 03/28/23 Blanquita Morales Oracle Adf Consultant Diabetes Education 04/25/23 Aubrey Jones MD [address] [place] [address] Assigned Heart and Vascular Provider 05/07/23 documented as of this encounter
--- OUTSIDE RECORDS SUMMARY | 2023-08-03 13:01 | XMS_ITS | Encounter Summary ---
Author Name Unknown Organization [facility] Address [address] [place] [address]. [place] [address] Care Team Providers Care Design Printing Machine Set Up Operator Name Role Phone Len Adhikari MD Primary Care Provider [phone] Jovany Gonzalez MD Unavailable [phone] Alem Rodriguez RN Unavailable [phone] [facility] Unavailable [phone] [facility] Unavailable Len Adhikari MD Unavailable [phone] Len Adhikari MD Unavailable [phone] Laurita Yang RN Unavailable Laurita Yang RN Unavailable Reanna Smith RD Unavailable [phone] Jamshid Granados MD Unavailable Katiana Read MD Unavailable +[phone] Jovita Daly MD Unavailable Alexander López MD Unamarcelina lable Jese Doyle MD Unavailable Roshni Nascimento RN Unavailable Unavailable Johana Groves [facility] Unavailable [phone] Kiet Swain MD Unavailable [phone] Winsome Pike APRN SHEET WRITER Unavailable +[phone] Tori Hines EXTERNAL GRINDER TENDER Unavailable Miranda Queen [facility] Unavailable Unavailable Winsome Pike APRN SHEET WRITER Unavailable +[phone] Marisel Armando MD Unavailable Marisel Armando MD Unavailable Inderjit Ugalde MD Unavailable [phone] Wesley Barrett MD Unavailable +[phone] Charles Jaramillo PA-C Unavailable +[phone] Miranda Queen [facility] Unavailable Unavailable Leeann Rinaldi MD Unavailable Miranda Queen [facility] Unavailable Unavailable Dyan Fuentes MD Primary Care Provider [phone] Dyan Fuentes MD Unavailable [phone] Katiana Read MD Unavailable [phone] Meme Singleton PhD Unavailable +[phone] Deena Garza DEPUTY SHERIFF LIEUTENANT SHEET WRITER Unavailable +[phone] Mary Del Cid NP Unavailable + [phone] Elham Stack RPH Unavailable [phone] Emerita Potter EXTERNAL GRINDER TENDER Unavailable +[phone] Mary Del Cid NP Unavailable + [phone] Michelle Guzman DPM, Podiatry /Foot and Ankle Surgery Unavailable Dyan Fuentes MD Unavailable +[phone] Mary Del Cid NP Unavailable + [phone] Aubrey Jones MD Unavailable Andrew Blanquita Shantell Unavailable Unavailable Aubrey Jones MD Unavailable [phone] Encounter Details Date Type Department Care Team (Late st Contact Info) Description 12/06/2017 MyC Medical Advice [facility] [address] [place] [id number] [place] [address] [place] [address] Social History Tobacco Use Types [...] Contact Info) Description 08/18/2023 3:00 PM BUSINESS SUPPORT ADMINISTRATOR Office Visit [facility] [address] [place] [address] Katiana Read MD [address] [address] [place] [address] documented as of this encounter Visit Diagnoses Not on filedocumented in this encounter Additional Health Concerns Infection Onset Date Last Indicated Resolved Time Rule Out COVID-19 08/19/2020 08/19/2020 08/19/2020 4:40 PM BUSINESS SUPPORT ADMINISTRATOR Rule Out C-difficile 02/27/2021 02/27/2021 021 [...] documented as of this encounter Care Teams Design Printing Machine Set Up Operator Relationship Specialty Start Date End Date Len Adhikari MD PCP - General Family Practice 11/08/16 05/09/22 [place] [address] [facility] [place] [address] PCP - Assigned PCP 11/14/16 09/12/18 [place] [address] [place] [address] PCP - General Family Medicine 05/18/22 Jovany Gonzalez MD [facility] [address] [facility] [address] [place], [place] [address] Orthopedics 02/15/17 Alem Rodriguez, ZITA Clinic Milk Pickup Driver 05/10/17 02/08/18 Staci Woodward NP [place] [address] [place], [place] [address] Nurse Practitioner Nurse Practitioner Psych/Mental Health 05/10/17 [facility] 02/16/18 04/12/19 [place] [address] [facility] [address] Assigned PCP 11/14/16 01/22/22 Laurita Yang, RN Clinic Milk Pickup Driver 12/29/18 01/07/19 Laurita Yang RN Lead Milk Pickup Driver 01/08/[address] [facility] [address] [place] [address] Post Hole Digging Machine Operator Dietitian, Registered 07/25/19 [place] [address] [facility] [address] [place] [address] Assigned Musculoskeletal Provider 05/02/20 09/13/20 Katiana Read MD [address] [facility] [address] [place] [address] Assigned Endocrinology Provider 05/02/20 08/01/21 Jovita Daly MD [address] [place] [address] Assigned Surgical Provider 05/02/20 10/04/20 Alexander López MD [address] 106 [place] [address] Assigned Sleep Provider 05/02/20 11/15/20 Jese Doyle MD [address] [place] [address] Assigned Pulmonology Provider 05/02/20 04/11/21 Roshni Nascimento, RN Personal Advocate & Liaison (PAL) Family Medicine 08/18/20 Johana Groves [facility] [address] [place], [place] [id number] Pharmacist Pharmacist 08/28/20 11/26/20 Kiet Swain MD [address] [place] [address] [id number] Referring Physician Psychiatry 09/19/20 Winsome Pike APRN SHEET WRITER [address] [place] [address] [id number] Nurse Practitioner Psychiatry 09/19/20 Tori Hines [facility] [address] [place] [address] [id number] Stone Chimney Mason Stone Chimney Mason - Clinical 09/19/20 [facility] [address] [place] [address] Pharmacist Pharmacist 11/12/20 Winsmoe Pike APRN SHEET WRITER [address] [place] [address] [id number] Assigned Behavioral Health Provider 01/04/21 07/02/22 Marisel Armando MD [address] [place] [address] [id number] Gastroenterology 02/05/21 Marisel Armando MD [address] [place] [address] Assigned Gastroenterology Provider 03/08/21 12/24/22 Inderjit Ugalde MD [address] [place] [address] Assigned Surgical Provider 02/15/21 08/20/22 Wesley Barrett MD 420 [facility] 96 [place] [address] Assigned Neuroscience Provider 05/10/21 Charles Jaramillo PA-C [address] [facility] 450 [place] [address] Assigned Musculoskeletal Provider 04/26/21 10/15/22 Miranda Queen [facility] [address] [place] [address] Assigned MTM Pharmacist 12/05/21 03/26/22 [place] [address] [place] [address] Assigned PCP 01/23/22 05/14/22 Miranda Queen [facility] [address] [place] [address] Assigned MTM Pharmacist 04/07/22 05/14/22 [place] [address] [place] [address] Assigned PCP 05/15/22 Katiana Read MD [address] [place] [address] Assigned Endocrinology Provider 06/19/22 [place] [address] [address] [place] [address] Assigned Behavioral Health Provider 07/03/22 12/31/22 Deena Garza APRN SHEET WRITER [address] [address] [place] [address] Assigned Pain Medication Provider 07/19/22 10/29/22 Mary Del Cid, RAFAEL [address] [address] [place] [address] Nurse Practitioner Nurse Practitioner 10/18/22 Elham Stack, [facility] [address] [place], [place] [address] Pharmacist Pharmacist 10/19/22 Emerita Potter, [facility] Clinic Milk Pickup Driver Stone Chimney Mason - Clinical 10/29/22 11/02/22 Mary Del Cid, RAFAEL [address] [address] [place] [address] Assigned Pain Medication Provider 10/30/22 12/03/22 Michelle Guzman, DPM, Podiatry/Foot and Ankle Surgery [address] [address] Assigned Musculoskeletal Provider 10/16/22 04/08/23 [place] [address] [place] [address] Assigned Pain Medication Provider 12/04/22 04/01/23 [place] [address] [address] [place] [address] Nurse Practitioner Nurse Practitioner 01/17/23 01/17/23 Aubrey Jones MD [address] [place] [address] Cardiovascular Disease 03/28/23 Blanquita Morales Post Hole Digging Machine Operator Diabetes Education 04/25/23 Aubrey Jones MD [address] [place] [address] Assigned Heart and Vascular Provider 05/07/23 documented as of this encounter
--- OUTSIDE RECORDS SUMMARY | 2023-08-03 13:01 | XMS_ITS | Encounter Summary ---
Author Name Unknown Organization [facility] Address [address] [place] [address]. [place] [address] Care Team Providers Care Corking Machine Operator Name Role Phone None Unavailable Unavailable Staci Villatoro RN Unavailable [phone] Len Adhikari MD Primary Care Provider DerianJovany stockton MD Unavailable [phone] Alem Rodriguez RN Unavailable [facility] NP Unavailable [phone] [facility] Unavailable Len Adhikari MD Unavailable Len Adhikari MD Unavailable Laurita Yang RN Unavailable Laurita Yang RN Unavailable [phone] Unavailable Jamshid Granados MD Unavailable [phone] Katiana Read MD Unavailable [phone] Jovita Daly MD Unavailable [phone] Alexander López MD Jese Doyle MD Unavailable [phone] Roshni Nascimento RN Unavailable Unavailable Johana Groves [facility] Unavailable Kiet Swain MD Unavailable [phone] Winsome Pike APRN MERCHANDISE CLERK Unavailable +[phone] Tori Hines GAS TURBINE ASSEMBLER Unavailable Miranda Queen [facility] Unavailable Unavailable Winsome Pike APRN MERCHANDISE CLERK Unavailable [phone] Marisel Armando MD Unavailable Marisel Armando MD Unavailable Inderjit Ugalde MD Unavailable [phone] Wesley Barrett MD Unavailable +[phone] Charles Jaramillo PA-C Unavailable +[phone] Miranda Queen [facility] Unavailable Unavailable Leeann Rinaldi MD Unavailable Miranda Queen [facility] Unavailable Unavailable Dyan Fuentes MD Primary Care Provider [phone] Dyan Fuentes MD Unavailable [phone] Katiana Read MD Unavailable [phone] Meme Singleton PhD Unavailable +[phone] Deena Garza VALIDATION SCIENTIST MERCHANDISE CLERK Unavailable +[phone] Mary Del Cid NP Unavailable + [phone] Elham Stack RPH Unavailable [phone] Emerita Potter GAS TURBINE ASSEMBLER Unavailable +[phone] Mary Del Cid NP Unavailable + [phone] Michelle Guzman DPM, Podiatry /Foot and Ankle Surgery Unavailable Dyan Fuentes MD Unavailable [phone] Mary Del Cid NP Unavailable [phone] Aubrey Jones MD Unavailable +[phone] DarwinBlanquita giraldo Unavailable Unavailable Aubrey Jones MD Unavailable [phone] Reason for Visit * Reason Comments Medication Refill Encounter Details Date Type Department Care Team (Late Contact Info) Description 06/24/2017 Refill [facility] [address], [place] [address] [place] [address] [place] [address] Medication Refill Social History Tobacco [...] This med comes from DELVIS Nascimento RN H CARRIER documented in this encounter Plan of Treatment Upcoming Encounters Date Type Department Care Team (Late Contact Info) Description 08/18/2023 3:00 PM CLOTH CARRIER Office Visit [facility] [address] [place] [address] Katiana Read MD [address] [address] [place] [address] documented as of this encounter Visit Diagnoses Diagnosis Other chronic pain Chronic abdominal pain Abdominal pain, unspecified site C. difficile diarrhea Intestinal infection due to clostridium difficile documented in this encounter Additional Health Concerns Infection Onset Date Last Indicated Resolved Time Rule Out COVID-19 08/19/2020 08/19/2020 08/19/2020 4:40 PM CLOTH CARRIER Rule Out C-difficile 02/27/2021 02/27/2021 021 6:10 [...] documented as of this encounter Care Teams Corking Machine Operator Relationship Specialty Start Date End Date Len Adhikari MD PCP - General Family Practice 11/08/16 05/09/22 [place] [address] [facility] [place] [address] PCP - Assigned PCP 11/14/16 09/12/18 [place] [address] [place] [address] PCP - General Family Medicine 05/18/22 None 12/09/11 08/31/17 Staci Villatoro, RN Registered Nurse 11/10/15 08/30/17 Jovany Gonzalez MD [facility] 66[address] [facility] [address] [place] [address] Orthopedics 02/15/17 Alem Rodriguez, ZITA Clinic Tire Center Manager 05/10/17 02/08/18 Staci Woodward, AGRICULTURAL ENGINEER [place] [address] [place] [address] Nurse Practitioner Nurse Practitioner Psych/Mental Health 05/10/17 [facility] 02/16/18 04/12/19 [place] [address] [facility] [place] [address] Assigned PCP 11/14/16 01/22/22 Laurita Yang, RN Clinic Tire Center Manager 12/29/18 01/07/19 Laurita Yang, RN Lead Tire Center Manager 01/08/19 9 Reanna Smith, RD [address] [address] Building Operator Dietitian, Registered 07/25/19 [place] [address] [facility] [address] [place], [place] [address] Assigned Musculoskeletal Provider 05/02/20 09/13/20 Katiana Read MD [address] [place], [place] [address] Assigned Endocrinology Provider 05/02/20 08/01/21 Jovita Daly MD [address] [place], [place] [address] Assigned Surgical Provider 05/02/20 10/04/20 Alexander López MD [address] [place] [address] [address] [place] [address] Assigned Sleep Provider 05/02/20 11/15/20 Jese Doyle MD [address] [place], [place] [address] Assigned Pulmonology Provider 05/02/20 04/11/21 Roshni Nascimento RN Personal Advocate & Liaison (PAL) Family Medicine 08/18/20 [facility] [address] [place] [address] Pharmacist Pharmacist 08/28/20 11/26/20 Kiet Swain MD [address] [place], [place] [address] [place] [address] Referring Physician Psychiatry 09/19/20 Winsome Pike APRN MERCHANDISE CLERK [address] [address] Nurse Practitioner Psychiatry 09/19/20 Tori Hines, [facility] [place] [address] Inspector Bullet Slugs Inspector Bullet Slugs - Clinical 09/19/20 Miranda Queen, [facility] [address] [place] [address] Pharmacist Pharmacist 11/12/20 Winsome Pike APRN MERCHANDISE CLERK [address] [address] Assigned Behavioral Health Provider 01/04/21 07/02/22 Marisel Armando MD [address] [place] [address] 856995 Gastroenterology 02/05/21 Marisel Armando MD [address] [place] [address] 230345 Assigned Gastroenterology Provider 03/08/21 12/24/22 Inderjit Ugalde MD [address] [facility] 300 [place], [place] 252027 Assigned Surgical Provider 02/15/21 08/20/22 Wesley Barrett MD [address] [place] [address] 96 [place], [place] [address] Assigned Neuroscience Provider 05/10/21 Charles Jaramillo PA-C [address] [address] Assigned Musculoskeletal Provider 04/26/21 10/15/22 Miranda Queen [facility] [address] [place] [address] Assigned MTM Pharmacist 12/05/21 03/26/22 [place] [address] [place] [address] Assigned PCP 01/23/22 05/14/22 Miranda Queen [facility] [address] [place] [address] Assigned MTM Pharmacist 04/07/22 05/14/22 [place] [address] [place] [address] Assigned PCP 05/15/22 Katiana Read MD [address] [address] Assigned Endocrinology Provider 06/19/22 [place] PhD [address] [place] [address] Assigned Behavioral Health Provider 07/03/22 12/31/22 Deena Garza APRN MERCHANDISE CLERK [address] [place] [address] Assigned Pain Medication Provider 07/19/22 10/29/22 Mary Del Cid, RAFAEL [address] [address] Nurse Practitioner Nurse Practitioner 10/18/22 Elham Stack, [facility] [address] [place] [address] Pharmacist Pharmacist 10/19/22 Emerita Potter, [facility] Clinic Tire Center Manager Inspector Bullet Slugs - Clinical 10/29/22 11/02/22 Mary Del Cid, RAFAEL [address] [address] [address] Assigned Pain Medication Provider 10/30/22 12/03/22 Michelle Guzman, ALDOM, Podiatry/Foot and Ankle Surgery [address] [place] [address] Assigned Musculoskeletal Provider 10/16/22 04/08/23 [place] [address] [place] [address] Assigned Pain Medication Provider 12/04/22 04/01/23 [place] [address] [place] [address] Nurse Practitioner Nurse Practitioner 01/17/23 01/17/23 Aubrey Jones MD [address] [place] [address] Cardiovascular Disease 03/28/23 Blanquita Morales Building Operator Diabetes Education 04/25/23 Aubrey Jones MD [address] [place] [address] Assigned Heart and Vascular Provider 05/07/23 documented as of this encounter
--- OUTSIDE RECORDS SUMMARY | 2023-08-03 13:01 | XMS_ITS ---
Author Name Unknown Organization [facility] Address [address] [place] [address] Care Team Providers Care Cafe Assistant Name Role Phone Jovany Gonzalez MD Unavailable CrissyStaci jeong TMD TEACHER Unavailable [phone] Unavailable [phone] Roshni Nascimento RN Unavailable Unavailable Kiet Swain MD Unavailable [phone] Winsome Pike APRN MEDIA SENIOR RECRUITER Unavailable +[phone] Tori Hines [facility] Unavailable Miranda Queen [facility] Unavailable Unavailable Marisel Armando MD Unavailable Wesley Barrett MD Unavailable +[phone] Dyan Fuentes MD Primary Care Provider [phone] Dyan Fuentes MD Unavailable [phone] Katiana Read MD Unavailable [phone] Mary Del Cid TMD TEACHER Unavailable + [phone] Elham Stack [facility] Unavailable [phone] Aubrey Jones MD Unavailable [phone] Blanquita Morales Unavailable Unavailable Aubrey Jones MD Unavailable [phone] Transitional Care Management Status:Closed (Closed) Start date:12/13/2022 Enrollment date:12/13/2022 End date:12/27/2022 Close reason:Goals met Continued Care and Services Coordination
--- OUTSIDE RECORDS SUMMARY | 2023-08-03 13:01 | XMS_ITS | Encounter Summary ---
Author Name Unknown Organization [facility] Address [address] [place] [address]. [place] [address] Care Team Providers Care B And B Gang Worker Name Role Phone Len Adhikari MD Primary Care Provider Jovany Gonzalez MD Unavailable Alem Rodriguez RN [facility] Unavailable [phone] [facility] Unavailable Len Adhikari MD Unavailable Len Adhikari MD Unavailable [phone] Laurita Yang RN Unavailable Laurita Yang RN Unavailable Reanna Smith RD Unavailable Jamshid Granados MD Unavailable [phone] Katiana Read MD Unavailable +[phone] Jovita Daly MD Unavailable Alexander López MD Unamarcelina lable Jese Doyle MD Unavailable [phone] Roshni Nascimento RN Unavailable Unavailable Johana Groves [facility] Unavailable [phone] Kiet Swain MD Unavailable [phone] Winsome Pike APRN TECHNICAL SME Unavailable +[phone] Tori Hines JOB SPECIFICATION WRITER Unavailable Miranda Queen [facility] Unavailable Unavailable Winsome Pike APRN TECHNICAL SME Unavailable [phone] Marisel Armando MD Unavailable Marisel Armando MD Unavailable Inderjit Ugalde MD Unavailable [phone] Wesley Barrett MD Unavailable +[phone] Charles Jaramillo PA-C Unavailable +[phone] Miranda Queen [facility] Unavailable Unavailable Leeann Rinaldi MD Unavailable Miranda Queen [facility] Unavailable Unavailable Dyan Fuentes MD Primary Care Provider +[phone] Dyan Fuentes MD Unavailable +[phone] Katiana Read MD Unavailable +[phone] Meme Singleton PhD Unavailable +[phone] Deena Garza BUILDING MAINTENANCE SUPERVISOR TECHNICAL SME Unavailable +[phone] Mary Del Cid NP Unavailable + [phone] Elham Stack RPH Unavailable +[phone] Emerita Potter JOB SPECIFICATION WRITER Unavailable +[phone] Mary Del Cid NP Unavailable + [phone] Michelle Guzman DPM, Podiatry /Foot and Ankle Surgery Unavailable Dyan Fuentes MD Unavailable +[phone] Mary Del Cid NP Unavailable + [phone] Aubrey Jones MD Unavailable +[phone] Andrew Blanquita J Unavailable Unavailable Aubrey Jones MD Unavailable +[phone] Encounter Details Date Type Department Care Team (Late st Contact Info) Description 02/01/2018 MyC Medical Advice [facility] [address] [place] [address] Criselda Ma, BUILDING MAINTENANCE SUPERVISOR TECHNICAL SME Social History Tobacco Use Types Packs/Day Years [...] st Contact Info) Description 08/18/2023 3:00 PM SHOWROOM SALESPERSON Office Visit [facility] [address] [place] [address] Katiana Read MD [address] [place] [address] documented as of this encounter Visit Diagnoses Not on filedocumented in this encounter Additional Health Concerns Infection Onset Date Last Indicated Resolved Time Rule Out COVID-19 08/19/2020 08/19/2020 08/19/2020 4:40 PM SHOWROOM SALESPERSON Rule Out C-difficile 02/27/2021 02/27/2021 021 6:10 [...] documented as of this encounter Care Teams B And B Gang Worker Relationship Specialty Start Date End Date Len Adhikari MD PCP - General Family Practice 11/08/16 05/09/22 [place] [address] [facility] [place] [address] PCP - Assigned PCP 11/14/16 09/12/18 [place] [address] [place] [address] PCP - General Family Medicine 05/18/22 Jovany Gonzalez MD [facility] [address] [facility] [address] [place] [address] Orthopedics 02/15/17 Alem Rodriguez, ZITA Clinic Vp Treasurer 05/10/17 02/08/18 Staci Woodward NP CLINICS [facility] [address] [place], [place] [address] Nurse Practitioner Nurse Practitioner Psych/Mental Health 05/10/17 [facility] ([facility] ([place]) 02/16/18 04/12/19 [place] [address] [place] [address] Assigned PCP 11/14/16 01/22/22 Laurita Yang, RN Clinic Vp Treasurer 12/29/18 01/07/19 Laurita Yang RN Lead Vp Treasurer 01/08/[address] [facility] [address] [place], [place] [address] Director School Of Nursing Dietitian, Registered 07/25/19 [place] [address] [facility] [address] [place], [place] [address] Assigned Musculoskeletal Provider 05/02/20 09/13/20 Katiana Read MD [address] [address] [place], [place] [id number] Assigned Endocrinology Provider 05/02/20 08/01/21 Jovita Daly MD [address] [place], [place] [address] Assigned Surgical Provider 05/02/20 10/04/20 Alexander López MD [address] [facility] 106 [place] [address] Assigned Sleep Provider 05/02/20 11/15/20 Jese Doyle MD [address] [facility] [place], [place] [address] Assigned Pulmonology Provider 05/02/20 04/11/21 Roshni Nascimento, RN Personal Advocate & Liaison (PAL) Family Medicine 08/18/20 Johana Groves [facility] [address] [facility] [place] [address] Pharmacist Pharmacist 08/28/20 11/26/20 Kiet Swain MD [address] [place] [address] Referring Physician Psychiatry 09/19/20 Winsome Pike APRN TECHNICAL SME [address] [place] [address] Nurse Practitioner Psychiatry 09/19/20 Tori Hines [facility] [address] [place] [address] Reception Centre Manager Reception Centre Manager - Clinical 09/19/20 [facility] [address] [place] [address] Pharmacist Pharmacist 11/12/20 Winsome Pike APRN TECHNICAL SME [address] [place] [address] Assigned Behavioral Health Provider 01/04/21 07/02/22 Marisel Armando MD [address] [place] [address] 689325 Gastroenterology 02/05/21 Marisel Armando MD [address] [place] [address] Assigned Gastroenterology Provider 03/08/21 12/24/22 Inderjit Ugalde MD [address] [place] [address] Assigned Surgical Provider 02/15/21 08/20/22 Wesley Barrett MD 420 [facility] 96 [place] [address] Assigned Neuroscience Provider 05/10/21 Charles Jaramillo PA-C [address] [facility] 450 [place] [address] Assigned Musculoskeletal Provider 04/26/21 10/15/22 [facility] [address] [place] [address] Assigned MTM Pharmacist 12/05/21 03/26/22 [place] [address] [place] [address] Assigned PCP 01/23/22 05/14/22 Miranda Queen [facility] [address] [place] [address] Assigned MTM Pharmacist 04/07/22 05/14/22 [place] [address] [place] [address] Assigned PCP 05/15/22 Katiana Read MD [address] 200 [place] [address] Assigned Endocrinology Provider 06/19/22 [place] [address] [place] [address] Assigned Behavioral Health Provider 07/03/22 12/31/22 Deena Garza APRN CNP [address] [place] [address] Assigned Pain Medication Provider 07/19/22 10/29/22 [place] [address] [address] [place] [address] Nurse Practitioner Nurse Practitioner 10/18/22 Elham Stack, [facility] [address] [place] [address] Pharmacist Pharmacist 10/19/22 Emerita Potter, [facility] Clinic Vp Treasurer Reception Centre Manager - Clinical 10/29/22 11/02/22 [place] [address] [address] [place] [address] Assigned Pain Medication Provider 10/30/22 12/03/22 Michelle Guzman DPM, Podiatry/Foot and Ankle Surgery [address] [place] [address] Assigned Musculoskeletal Provider 10/16/22 04/08/23 [place] [address] [place] [address] Assigned Pain Medication Provider 12/04/22 04/01/23 [place] [address] [address] [place] [address] Nurse Practitioner Nurse Practitioner 01/17/23 01/17/23 Aubrey Jones MD [address] [place] [address] Cardiovascular Disease 03/28/23 Blanquita Morales Director School Of Nursing Diabetes Education 04/25/23 Aubrey Jones MD [address] [place] [address] Assigned Heart and Vascular Provider 05/07/23 documented as of this encounter
--- OUTSIDE RECORDS SUMMARY | 2023-08-03 13:01 | XMS_ITS | Encounter Summary ---
Author Name Unknown Organization [facility] Address [address] [place] [address]. [place] [address] Care Team Providers Care Loop Machine Operator Name Role Phone Len Adhikari MD Primary Care Provider Jovany Gonzalez MD Unavailable Alem Rodriguez RN Unavailable [phone] [facility] Unavailable Len Adhikari MD Unavailable Len Adhikari MD Unavailable Laurita Yang RN Unavailable [phone] Laurita Yang RN Unavailable Reanna Smith RD Unavailable Jamshid Granados MD Unavailable Katiana Read MD Unavailable [phone] Jovita Daly MD Unavailable [phone] Alexander López MD Unamarcelina lable Jese Doyle MD Unavailable [phone] Roshni Nascimento RN Unavailable Unavailable Johana Groves [facility] Unavailable Kiet Swain MD Unavailable Winsome Pike APRN SAP BI DEVELOPER Unavailable [phone] Tori Hines AUTOMATED MANUFACTURING INSTRUCTOR Unavailable Miranda Queen [facility] Unavailable Unavailable Winsome Pike APRN SAP BI DEVELOPER Unavailable [phone] Marisel Armando MD Unavailable Marisel Armando MD Unavailable Inderjit Ugalde MD Unavailable Wesley Barrett MD Unavailable [phone] Charles Jaramillo PA-C Unavailable +[phone] Miranda Queen [facility] Unavailable Unavailable Leeann Rinaldi MD Unavailable Miranda Queen [facility] Unavailable Unavailable Dyan Fuentes MD Primary Care Provider [phone] Dyan Fuentes MD Unavailable [phone] Katiana Read MD Unavailable [phone] Meme Singleton PhD Unavailable +[phone] Deena Garza SELF DEFENSE INSTRUCTOR SAP BI DEVELOPER Unavailable +[phone] Mary Del Cid NP Unavailable + [phone] Elham Stack RPH Unavailable [phone] Emerita Potter AUTOMATED MANUFACTURING INSTRUCTOR Unavailable +[phone] Mary Del Cid NP Unavailable + [phone] Michelle Guzman DPM, Podiatry /Foot and Ankle Surgery Unavailable Dyan Fuentes MD Unavailable [phone] Mary Del Cid NP Unavailable + [phone] Aubrey Jones MD Unavailable [phone] Andrew Blanquita Shantell Unavailable Unavailable Aubrey Jones MD Unavailable [phone] Encounter Details Date Type Department Care Team (Late st Contact Info) Description 12/09/2017 MyC Medical Advice [facility] [address] [place] [phone] [place] [address] [place] [address] Social History Tobacco Use Types [...] st Contact Info) Description 08/18/2023 3:00 PM SHARED SERVICES REPRESENTATIVE Office Visit [facility] [address] [place] [address] Katiana Read MD [address] [address] [place] [address] documented as of this encounter Visit Diagnoses Not on filedocumented in this encounter Additional Health Concerns Infection Onset Date Last Indicated Resolved Time Rule Out COVID-19 08/19/2020 08/19/2020 08/19/2020 4:40 PM SHARED SERVICES REPRESENTATIVE Rule Out C-difficile 02/27/2021 02/27/2021 021 6:10 [...] documented as of this encounter Care Teams Loop Machine Operator Relationship Specialty Start Date End Date Len Adhikari MD PCP - General Family Practice 11/08/16 05/09/22 [place] [address] [facility] [place] [address] PCP - Assigned PCP 11/14/16 09/12/18 [place] [address] [place] [address] PCP - General Family Medicine 05/18/22 Jovany Gonzalez MD [facility] [address] [facility] 605 [place], [place] [address] Orthopedics 02/15/17 Alem Rodriguez, ZITA Clinic Cabinet Finisher 05/10/17 02/08/18 Staci Woodward NP [place] [address] [address] [place], [place] [address] Nurse Practitioner Nurse Practitioner Psych/Mental Health 05/10/17 [facility] ([facility] ([place]) 02/16/18 04/12/19 [place] [address] [address] [place] [address] Assigned PCP 11/14/16 01/22/22 Laurita Yang, RN Clinic Cabinet Finisher 12/29/18 01/07/19 Laurita Yang RN Lead Cabinet Finisher 01/08/[address] [facility] [address] [place] [address] Assembler Type Bar And Segment Dietitian, Registered 07/25/19 [place] [address] [facility] 300 [place] [address] Assigned Musculoskeletal Provider 05/02/20 09/13/20 Katiana Read MD [address] [facility] 200 [place] [address] Assigned Endocrinology Provider 05/02/20 08/01/21 Jovita Daly MD [address] [place] [address] Assigned Surgical Provider 05/02/20 10/04/20 Alexander López MD [address] [facility] 106 [place] [address] Assigned Sleep Provider 05/02/20 11/15/20 Jese Doyle MD [address] [place] [address] Assigned Pulmonology Provider 05/02/20 04/11/21 Roshni Nascimento, RN Personal Advocate & Liaison (PAL) Family Medicine 08/18/20 Johana Groves [facility] [address] [facility] [address] [place], [place] [phone] Pharmacist Pharmacist 08/28/20 11/26/20 Kiet Swain MD [address] [place] [id number] Referring Physician Psychiatry 09/19/20 Winsome Pike APRN SAP BI DEVELOPER [address] [place] [address] 454864 Nurse Practitioner Psychiatry 09/19/20 Tori Hines [facility] [address] [place] [address] [phone] Arc Welder Arc Welder - Clinical 09/19/20 [facility] [address] [place] [address] Pharmacist Pharmacist 11/12/20 Winsome Pike APRN SAP BI DEVELOPER [address] [place] [address] 566404 Assigned Behavioral Health Provider 01/04/21 07/02/22 Marisel Armando MD [address] [place] [address] 324855 Gastroenterology 02/05/21 Marisel Armando MD [address] [place] [address] Assigned Gastroenterology Provider 03/08/21 12/24/22 Inderjit Ugalde MD [address] [place] [address] Assigned Surgical Provider 02/15/21 08/20/22 Wesley Barrett MD 420 [facility] 96 [place] [address] Assigned Neuroscience Provider 05/10/21 Charles Jaramillo PA-C 6545 [facility] 450 [place] [address] Assigned Musculoskeletal Provider 04/26/21 10/15/22 Miranda Queen [facility] [address] [place] [address] Assigned MTM Pharmacist 12/05/21 03/26/22 [place] [address] [place] [address] Assigned PCP 01/23/22 05/14/22 Miranda Queen [facility] [address] [place] [address] Assigned MTM Pharmacist 04/07/22 05/14/22 [place] [address] [place] [address] Assigned PCP 05/15/22 Katiana Read MD [address] [place] [address] Assigned Endocrinology Provider 06/19/22 [place] [address] [place] [address] Assigned Behavioral Health Provider 07/03/22 12/31/22 Deena Garza APRN SAP BI DEVELOPER [address] [place] [address] Assigned Pain Medication Provider 07/19/22 10/29/22 Mary Del Cid, RAFAEL [address] [place] [address] Nurse Practitioner Nurse Practitioner 10/18/22 Elham Stack, [facility] 30[address] [place], [place] [address] Pharmacist Pharmacist 10/19/22 Emerita Potter, [facility] Clinic Cabinet Finisher Arc Welder - Clinical 10/29/22 11/02/22 Mary Del Cid, RAFAEL [address] [place] [address] Assigned Pain Medication Provider 10/30/22 12/03/22 Michelle Guzman, DPM, Podiatry/Foot and Ankle Surgery [address] [place] [address] Assigned Musculoskeletal Provider 10/16/22 04/08/23 [place] [address] [place] [address] Assigned Pain Medication Provider 12/04/22 04/01/23 [place] [address] [place] [address] Nurse Practitioner Nurse Practitioner 01/17/23 01/17/23 Aubrey Jones MD [address] [place] [address] Cardiovascular Disease 03/28/23 Blanquita Morales Assembler Type Bar And Segment Diabetes Education 04/25/23 Aubrey Jones MD [address] [place] [address] Assigned Heart and Vascular Provider 05/07/23 documented as of this encounter
--- OUTSIDE RECORDS SUMMARY | 2023-08-03 13:01 | XMS_ITS ---
Author Name Unknown Organization [facility] Address [address] [place] [address] Care Team Providers Care Infectious Disease Physician Name Role Phone Jovany Gonzalez MD Unavailable CrissyStaci jeong LIVESTOCK FARM MANAGER Unavailable [phone] Unavailable [phone] Roshni Nascimento RN Unavailable Unavailable Kiet Swain MD Unavailable [phone] Winsome Pike APRN SPORTS BOOK BOARD ATTENDANT Unavailable +[phone] [facility] Unavailable Miranda Queen [facility] Unavailable Unavailable Marisel Armando MD Unavailable Wesley Barrett MD Unavailable [phone] Dyan Fuentes MD Primary Care Provider [phone] Dyan Fuentes MD Unavailable [phone] Katiana Read MD Unavailable +[phone] Mary Del Cid LIVESTOCK FARM MANAGER Unavailable + [phone] Elham Stack [facility] Unavailable [phone] Aubrey Jones MD Unavailable [phone] Blanquita Morales Unavailable Unavailable Aubrey Jones MD Unavailable [phone] Primary Care Care Coordination Status:Closed (Closed) Start date:10/29/2022 End date:11/02/2022 Close reason:Duplication of Care Management services Continued Care and Services Coordination
--- OUTSIDE RECORDS SUMMARY | 2023-08-03 13:01 | XMS_ITS ---
Author Name Unknown Organization [facility] Address [address] [place] [address] Care Team Providers Care Trucking Contractor Name Role Phone Jovany Gonzalez MD Unavailable CrissyStaci jeong RED HAT LINUX ENGINEER Unavailable [phone] Unavailable [phone] Roshni Nascimento RN Unavailable Unavailable Kiet Swain MD Unavailable [phone] Winsome Pike APRN DEPUTY CLERK Unavailable +[phone] Tori Hines [facility] Unavailable Miranda Queen [facility] Unavailable Unavailable Marisel Armando MD Unavailable Wesley Barrett MD Unavailable [phone] Dyan Fuentes MD Primary Care Provider +[phone] Dyan Fuentes MD Unavailable [phone] Katiana Read MD Unavailable +[phone] Mary Del Cid RED HAT LINUX ENGINEER Unavailable + [phone] Elham Stack [facility] Unavailable [phone] uAbrey Jones MD Unavailable +[phone] Blanquita Morales Unavailable Unavailable Aubrey Jonse MD Unavailable +[phone] Transitional Care Management Status:Closed (Closed) Start date:10/18/2022 Enrollment date:10/18/2022 End date:10/18/2022 Continued Care and Services Coordination
--- OUTSIDE RECORDS SUMMARY | 2023-08-03 13:01 | XMS_ITS | Encounter Summary ---
Author Name Unknown Organization [place] Address [address] [place] [address]. [place] [address] Care Team Providers Care Api Architect Name Role Phone Len Adhikari MD Primary Care Provider Jovany Gonzalez MD Unavailable Alem Rodriguez RN Unavailable [facility] Un[facility] [phone] [facility] Unavailable [phone] Len Adhikari MD Unavailable Len Adhikari MD Unavailable Laurita Yang RN Unavailable Laurita Yang RN Unavailable Reanna Smith RD Unavailable Jamshid Granados MD Unavailable [phone] Katiana Read MD Unavailable [phone] Jovita Daly MD Unavailable [phone] Alexander López MD Unamarcelina lable Jese Doyle MD Unavailable [phone] Roshni Nascimento RN Unavailable Unavailable Johana Groves [facility] Unavailable Kiet Swain MD Unavailable [phone] Winsome Pike APRN WEBSPHERE COMMERCE CONSULTANT Unavailable [phone] Tori Hines INFANT AND TODDLER TEACHER Unavailable Miranda Queen [facility] Unavailable Unavailable Winsome Pike APRN WEBSPHERE COMMERCE CONSULTANT Unavailable [phone] Marisel Armando MD Unavailable Marisel Armando MD Unavailable Inderjit Ugalde MD Unavailable [phone] Wesley Barrett MD Unavailable +[phone] Charles Jaramillo PA-C Unavailable +[phone] Miranda Queen [facility] Unavailable Unavailable Leeann Rinaldi MD Unavailable Miradna Queen [facility] Unavailable Unavailable Dyan Fuentes MD Primary Care Provider [phone] Dyan Fuentes MD Unavailable [phone] Katiana Read MD Unavailable [phone] Meme Singleton PhD Unavailable +[phone] Deena Garza BICYCLE SUBASSEMBLER WEBSPHERE COMMERCE CONSULTANT Unavailable +[phone] Mary Del Cid NP Unavailable + [phone] Elham Stack RPH Unavailable [phone] Emerita Potter INFANT AND TODDLER TEACHER Unavailable +[phone] Mary Del Cid NP Unavailable + [phone] Michlele Guzman DPM, Podiatry /Foot and Ankle Surgery Unavailable Dyan Fuentes MD Unavailable [phone] Mary Del Cid NP Unavailable + [phone] Aubrey Jones MD Unavailable [phone] Andrew Blanquita Shantell Unavailable Unavailable Aubrey Jones MD Unavailable Encounter Details Date Type Department Care Team (Late st Contact Info) Description 11/28/2017 MyC Medical Advice [facility] [address] [place] [phone] [place] [address] [place] [address] Social History Tobacco Use Types [...] st Contact Info) Description 08/18/2023 3:00 PM INFANT AND TODDLER TEACHER Office Visit [facility] [address] [place] [address] Katiana Read MD [address] [address] [place] [address] documented as of this encounter Visit Diagnoses Not on filedocumented in this encounter Additional Health Concerns Infection Onset Date Last Indicated Resolved Time Rule Out COVID-19 08/19/2020 08/19/2020 08/19/2020 4:40 PM INFANT AND TODDLER TEACHER Rule Out C-difficile 02/27/2021 02/27/2021 021 [...] documented as of this encounter Care Teams Api Architect Relationship Specialty Start Date End Date Len Adhikari MD PCP - General Family Practice 11/08/16 05/09/22 [place] [address] [facility] [place] [address] PCP - Assigned PCP 11/14/16 09/12/18 [place] [address] [place] [address] PCP - General Family Medicine 05/18/22 Jovany Gonzalez MD [facility] 6600 [facility] 605 [place], [place] 58[address] Orthopedics 02/15/17 Alem Rodriguez, ZITA Clinic Polisher Sand 05/10/17 02/08/18 Staci Woodward NP [place] [address] [place], [place] [address] Nurse Practitioner Nurse Practitioner Psych/Mental Health 05/10/17 [facility] ([facility] ([place]) 02/16/18 04/12/19 [place] [address] [facility] [place] [address] Assigned PCP 11/14/16 01/22/22 Laurita Yang, RN Clinic Polisher Sand 12/29/18 01/07/19 Laurita Yang RN Lead Polisher Sand 01/08/[address] [facility] [address] [place] [address] Pain Management Physician Dietitian, Registered 07/25/19 [place] [address] [facility] 300 [place] [address] Assigned Musculoskeletal Provider 05/02/20 09/13/20 Katiana Read MD [address] [facility] 200 [place] [address] Assigned Endocrinology Provider 05/02/20 08/01/21 Jovita Daly MD [address] [place] [address] Assigned Surgical Provider 05/02/20 10/04/20 Alexander López MD [address] [address] [facility] 106 [place] [address] Assigned Sleep Provider 05/02/20 11/15/20 Jese Doyle MD [address] [place] [address] Assigned Pulmonology Provider 05/02/20 04/11/21 Roshni Nascimento, RN Personal Advocate & Liaison (PAL) Family Medicine 08/18/20 Johana Groves [facility] [address] [place], [place] [phone] Pharmacist Pharmacist 08/28/20 11/26/20 Kiet Swain MD [address] [place] [address] [phone] Referring Physician Psychiatry 09/19/20 Winsome Pike APRN WEBSPHERE COMMERCE CONSULTANT [address] [place] [address] 980344 Nurse Practitioner Psychiatry 09/19/20 Tori Hines [facility] [address] [place] [address] [phone] Forging Dies Final Finisher Forging Dies Final Finisher - Clinical 09/19/20 [facility] [address] [place] [address] Pharmacist Pharmacist 11/12/20 Winsome Pike APRN WEBSPHERE COMMERCE CONSULTANT [address] [place] [address] 655214 Assigned Behavioral Health Provider 01/04/21 07/02/22 Marisel Armando MD [address] [place] [address] [id number] Gastroenterology 02/05/21 Marisel Armando MD [address] [place] [address] Assigned Gastroenterology Provider 03/08/21 12/24/22 Inderjit Ugalde MD [address] [place] [address] Assigned Surgical Provider 02/15/21 08/20/22 Wesley Barrett MD 420 [facility] 96 [place] [address] Assigned Neuroscience Provider 05/10/21 Charles Jaramillo PA-C 6545 [facility] 450 [place] [address] Assigned Musculoskeletal Provider 04/26/21 10/15/22 Miranda Queen [facility] [address] [place] [address] Assigned MTM Pharmacist 12/05/21 03/26/22 [place] [address] [place] [address] Assigned PCP 01/23/22 05/14/22 Miranda Queen [facility] [address] [place] [address] Assigned MTM Pharmacist 04/07/22 05/14/22 [place] [address] [place] [address] Assigned PCP 05/15/22 Katiana Read MD [address] [place] [address] Assigned Endocrinology Provider 06/19/22 [place] [address] [place] [address] Assigned Behavioral Health Provider 07/03/22 12/31/22 Deena Garza APRN WEBSPHERE COMMERCE CONSULTANT [address] [place] [address] Assigned Pain Medication Provider 07/19/22 10/29/22 Mary Del Cid, RAFAEL [address] [place] [address] Nurse Practitioner Nurse Practitioner 10/18/22 Elham Stack, [facility] 3033 [place], [place] 8[address] Pharmacist Pharmacist 10/19/22 Emerita Potter, [facility] Clinic Polisher Sand Forging Dies Final Finisher - Clinical 10/29/22 11/02/22 Mary Del Cid, RAFAEL [address] [place] [address] Assigned Pain Medication Provider 10/30/22 12/03/22 Michelle Guzman, DPM, Podiatry/Foot and Ankle Surgery [address] [place] [address] Assigned Musculoskeletal Provider 10/16/22 04/08/23 [place] [address] [place] [address] Assigned Pain Medication Provider 12/04/22 04/01/23 [place] [address] [place] [address] Nurse Practitioner Nurse Practitioner 01/17/23 01/17/23 Aubrey Jones MD [address] [place] [address] Cardiovascular Disease 03/28/23 Blanquita Morales Pain Management Physician Diabetes Education 04/25/23 Aubrey Jones MD [address] [place] [address] Assigned Heart and Vascular Provider 05/07/23 documented as of this encounter
--- OUTSIDE RECORDS SUMMARY | 2023-08-03 13:01 | XMS_ITS | Encounter Summary ---
Author Name Unknown Organization [place] Address [address] [place] [address]. [place] [address] Care Team Providers Care Grain Combine Driver Name Role Phone Len Adhikari MD Primary Care Provider Jovany Gonzalez MD Unavailable [phone] Alem Rodriguez RN Unavailable [facility] Unavailable [phone] [facility] Unavailable Len Adhikari MD Unavailable [phone] Len Adhikari MD Unavailable Laurita Yang RN Unavailable Laurita Yang RN Unavailable Reanna Smith RD Unavailable [phone] Jamshid Granados MD Unavailable Katiana Read MD Unavailable [phone] Jovita Daly MD Unavailable Alexander López MD Unamarcelina lable Jese Doyle MD Unavailable Roshni Nascimento RN Unavailable Unavailable Johana Groves [facility] Unavailable [phone] Kiet Swain MD Unavailable [phone] Winsome Pike APRN CABLE FORMER Unavailable +[phone] Tori Hines KITCHEN OPERATOR Unavailable Miranda Queen [facility] Unavailable Unavailable Winsome Pike APRN CABLE FORMER Unavailable [phone] Marisel Armando MD Unavailable Marisel Armando MD Unavailable Inderjit Ugalde MD Unavailable [phone] Wesley Barrett MD Unavailable +[phone] Charles Jaramillo PA-C Unavailable [phone] Miranda Queen [facility] Unavailable Unavailable Leeann Rinaldi MD Unavailable Miranda Queen [facility] Unavailable Unavailable Dyan Fuentes MD Primary Care Provider [phone] Dyan Fuentes MD Unavailable [phone] Katiana Read MD Unavailable [phone] Meme Singleton PhD Unavailable [phone] Deena Garza UTILITY WORKER FORGE CABLE FORMER Unavailable +[phone] Mary Del Cid NP Unavailable + [phone] Elham Stack RPH Unavailable [phone] Emerita Potter KITCHEN OPERATOR Unavailable [phone] Mary Del Cid NP Unavailable + [phone] Michelle Guzman DPM, Podiatry /Foot and Ankle Surgery Unavailable Dyan Fuentes MD Unavailable [phone] Mary Del Cid NP Unavailable + [phone] Aubrey Jones MD Unavailable [phone] AndrewBlanquita Unavailable Unavailable Aubrey Jones MD Unavailable [phone] Reason for Visit * Reason Onset Date Comments MyChart Communication 12/23/2017 Encounter Details Date Type Department Care Team (Late st Contact Info) Description 12/23/2017 MyC Medical Advice [facility] [id number] [place] [phone] [place] [address] [address] [place], [place] [phone] MyChart Communication Social History Tobacco Use Types [...] st Contact Info) Description 08/18/2023 3:00 PM ANESTHESIA TECH Office Visit [facility] [address] [place] [address] Katiana Read MD [address] [place] [address] [address] [place] [address] documented as of this encounter Visit Diagnoses Not on filedocumented in this encounter Additional Health Concerns Infection Onset Date Last Indicated Resolved Time Rule Out COVID-19 08/19/2020 08/19/2020 08/19/2020 4:40 PM ANESTHESIA TECH Rule Out C-difficile 02/27/2021 02/27/2021 021 [...] documented as of this encounter Care Teams Grain Combine Driver Relationship Specialty Start Date End Date Len Adhikari MD PCP - General Family Practice 11/08/16 05/09/22 [place] [address] [facility] [place] [address] PCP - Assigned PCP 11/14/16 09/12/18 [place] [address] [place] [address] PCP - General Family Medicine 05/18/22 Jovany Gonzalez MD [facility] 6600 [facility] 605 [place] [address] Orthopedics 02/15/17 Alem Rodriguez, ZITA Clinic Straight Cutter Machine 05/10/17 02/08/18 Staci Woodward NP [address] 512987 Nurse Practitioner Nurse Practitioner Psych/Mental Health 05/10/17 Care, [facility] AGENCY ([facility]), ([place]) 02/16/18 04/12/19 [place] [address] [facility] [address] Assigned PCP 11/14/16 01/22/22 Lauirta Yang, RN Clinic Straight Cutter Machine 12/29/18 01/07/19 Laurita Yang, RN Lead Straight Cutter Machine 01/08/[address] [facility] [address] [place], [place] 7[address]7 Fabrication Manager Dietitian, Registered 07/25/19 [place] [address] [facility] [address] [place], [place] 50[address] Assigned Musculoskeletal Provider 05/02/20 09/13/20 Katiana Read MD [address] [facility] 200 [place], [place] 4[address] Assigned Endocrinology Provider 05/02/20 08/01/21 Jovita Daly MD [address] [place], [place] 7[address]37 Assigned Surgical Provider 05/02/20 10/04/20 Alexander López MD 606 24[facility] 106 [place], [place] [address] Assigned Sleep Provider 05/02/20 11/15/20 Jese Doyle MD 9 [place], [place] 7[address] Assigned Pulmonology Provider 05/02/20 04/11/21 Roshni Nascimento, RN Personal Advocate & Liaison (PAL) Family Medicine 08/18/20 [facility] [address] [place] [address] [place], [place] [phone] Pharmacist Pharmacist 08/28/20 11/26/20 Kiet Swain MD [address] [place] [address] 740504 Referring Physician Psychiatry 09/19/20 Winsome Pike APRN CABLE FORMER [address] [place] [address] [phone] Nurse Practitioner Psychiatry 09/19/20 Tori Hines [facility] Critical access hospital0 [place], [place] [address] Refund Specialist Refund Specialist - Clinical 09/19/20 [facility] [id number] [place] [address] Pharmacist Pharmacist 11/12/20 Winsome Pike APRN CABLE FORMER [address] [place] [address] [phone] Assigned Behavioral Health Provider 01/04/21 07/02/22 Marisel Armando MD [address] [place] [address] Gastroenterology 02/05/21 Marisel Armando MD [address] [facility] [place] [address] Assigned Gastroenterology Provider 03/08/21 12/24/22 Inderjit Ugalde MD [address] [place] [address] Assigned Surgical Provider 02/15/21 08/20/22 Wesley Barrett MD 420 [facility] 96 [place] [address] Assigned Neuroscience Provider 05/10/21 Charles Jaramillo PA-C [address] [place] [address] Assigned Musculoskeletal Provider 04/26/21 10/15/22 [facility] [address] [place] [address] Assigned MTM Pharmacist 12/05/21 03/26/22 [place] [address] [place] [address] Assigned PCP 01/23/22 05/14/22 Miranda Queen [facility] [address] [place] [address] Assigned MTM Pharmacist 04/07/22 05/14/22 [place] [address] [place] [address] Assigned PCP 05/15/22 Katiana Read MD [address] [place] [address] Assigned Endocrinology Provider 06/19/22 [place] [address] [place] [address] Assigned Behavioral Health Provider 07/03/22 12/31/22 Deena Garza APRN CABLE FORMER [address] [place] [address] Assigned Pain Medication Provider 07/19/22 10/29/22 Mary Del Cid, RAFAEL [address] [place] [address] Nurse Practitioner Nurse Practitioner 10/18/22 Elham Stack, [facility] 3033 [place], [place] 95[address] Pharmacist Pharmacist 10/19/22 Emerita Potter, [facility] Clinic Straight Cutter Machine Refund Specialist - Clinical 10/29/22 11/02/22 Mary Del Cid, RAFAEL [address] [place] [address] Assigned Pain Medication Provider 10/30/22 12/03/22 Michelle Guzman, DPM, Podiatry/Foot and Ankle Surgery [address] [place] [address] Assigned Musculoskeletal Provider 10/16/22 04/08/23 [place] [address] [place] [address] Assigned Pain Medication Provider 12/04/22 04/01/23 [place] [address] [place] [address] Nurse Practitioner Nurse Practitioner 01/17/23 01/17/23 Aubrey Jones MD [address] [place] [address] Cardiovascular Disease 03/28/23 Blanquita Morales Fabrication Manager Diabetes Education 04/25/23 Aubrey Jones MD [address] [place] [address] Assigned Heart and Vascular Provider 05/07/23 documented as of this encounter
--- OUTSIDE RECORDS SUMMARY | 2023-08-03 13:02 | XMS_ITS ---
Author Name Unknown Organization [place] Address [address] [place] [address] Care Team Providers Care Dominatrix Name Role Phone Jovany Gonzalez MD Unavailable CrissyStaci jeong [address] RAILWAY Unavailable [phone] Unavailable [phone] Roshni Nascimento RN Unavailable Unavailable Kiet Swain MD Unavailable [phone] Winsome Pike APRN ANIMAL CYTOLOGIST Unavailable [phone] Tori Hines [facility] Unavailable Miranda Queen [facility] Unavailable Unavailable Marisel Armando MD Unavailable Wesley Barrett MD Unavailable [phone] Dyan Fuentes MD Primary Care Provider [phone] Dyan Fuentes MD Unavailable [phone] Katiana Read MD Unavailable [phone] Mary Del Cid [address] RAILWAY Unavailable + [phone] Elham Stack [facility] Unavailable [phone] Aubrey Joens MD Unavailable [phone] Blanquita Morales Unavailable Unavailable Aubrey Jones MD Unavailable [phone] Diabetes Self-Management Education Status:Enrolled (Active) Start date:04/11/2023 Enrollment date:04/25/2023 Current support & services provided:Type 2 Diabetes Management, Individual Education Case Team Name Relationship Phone Blanquita Morales Sand Mixer Operator(Responsible [facility]) Continued Care and Services Coordination
--- OUTSIDE RECORDS SUMMARY | 2023-08-03 13:10 | XMS_ITS | Encounter Summary ---
Author Name Unknown Organization [place] Address [address] [place] [address]. [place] [address] Care Team Providers Care Psychologists Name Role Phone Jovany Gonzalez MD Unavailable CrissyStaci jeong NP Unavailable [phone] Unavailable Roshni Nascimento RN Unavailable Unavailable Kiet Swain MD Unavailable [phone] Winsome Pike APRN FLY FRAME TENDER Unavailable [phone] Tori Hines [facility] Unavailable Miranda Queen [facility] Unavailable Unavailable Marisel Armando MD Unavailable Marisel Armando MD Unavailable Inderjit Ugalde MD Unavailable [phone] Wesley Barrett MD Unavailable [phone] Charles Jaramillo PA-C Unavailable [phone] Dyan Fuentes MD Primary Care Provider [phone] Dyan Fuentes MD Unavailable [phone] Katiana Read MD Unavailable [phone] Meme Singleton PhD Unavailable [phone] Deena Garza APRN FLY FRAME TENDER Unavailable [phone] Encounter Details Date Type Department Care Team [...] How often do you attend chur or baptism services? 1 to 4 times [...] Answer Date Recorded PHQ-2 Score 0 06/14/2022 [facility] [place] of Occupat ional Health - Occupational Stress [...] Coronavirus/COVID-19? Unable to assess 08/18/2022 11:00 AM MONKEY BREEDER documented as of this encounter Plan of Treatment Upcoming Encounters Date Type Department Care Team (Late st Contact Info) Description 08/18/2023 3:00 PM MONKEY BREEDER Office Visit [place] [address] [place] [phone] Katiana Read MD [address] [facility] 200 [place], [place] [address] documented as of this encounter Visit Diagnoses Not on filedocumented in this encounter Additional Health Concerns Assessment Noted Time PHQ-9 Depression Total Score: 13 022 3:28 PM MONKEY BREEDER documented as of this encounter Care Teams Psychologists Relationship Specialty [place] [address] [place] [address] PCP - General Family Medicine 05/18/22 Jovany Gonzalez MD [facility] 6600 [facility] 605 [place], [place] [address] Orthopedics 02/15/17 Staci Woodward RN [facility] [address] [place], [place] 5[address] Nurse Practitioner Nurse Practitioner Psych/Mental Health 05/10/17 Reanna Smith, RD [facility] [address] [place] [address] Personal Injury Law Specialist Dietitian, Registered 07/25/19 Roshni Nascimento, RN Personal Advocate & Liaison (PAL) Family Medicine 08/18/20 Kiet Swain MD 2450 [facility]15 [place], [place] [address] Referring Physician Psychiatry 09/19/20 Winsome Pike APRN FLY FRAME TENDER [address] [place] [address] Nurse Practitioner Psychiatry 09/19/20 Tori Hines [facility] 2450 [place], [place] 764[address] Phone Manager Phone Manager - Clinical 09/19/20 Miranda Queen [facility] [address] [place] [address] Pharmacist Pharmacist 11/12/20 Marisel Armando MD [address] [place] [address] [id number] Gastroenterology 02/05/21 Marisel Armando MD [address] [place] [address] 346525 Assigned Gastroenterology Provider 03/08/21 12/24/22 Inderjit Ugalde MD [address] [facility] 300 [place], [place] [address] Assigned Surgical Provider 02/15/21 08/20/22 Wesley Barrett MD 420 [facility] 96 [place], [place] 15[address] Assigned Neuroscience Provider 05/10/21 Charles Jaramillo PA-C [address] 559285 Assigned Musculoskeletal Provider 04/26/21 10/15/22 [place] [address] [place] [address] Assigned PCP 05/15/22 Katiana Read MD [address] [facility] 200 [place] [address] Assigned Endocrinology Provider 06/19/22 Meme [place] [address] [place] [address] Assigned Behavioral Health Provider 07/03/22 12/31/22 Deena Garza, MINER FLY FRAME TENDER [address] [place] [address] Assigned Pain Medication Provider 07/19/22 10/29/22 documented as of this encounter
--- OUTSIDE RECORDS SUMMARY | 2023-08-03 13:17 | XMS_ITS | Encounter Summary ---
Author Name Unknown Organization [facility] Address [address] [place] [address]. [place] [address] Care Team Providers Care Optical Goods Worker Name Role Phone Len Adhikari MD Primary Care Provider [phone] Jovany Gonzalez MD Unavailable CrissyStaci jeong LOAD BUILDER Unavailable [phone] Len Adhikari MD Unavailable [phone] Unavailable Jamshid Granados MD Unavailable Katiana Read MD Unavailable [phone] Jovita Daly MD Unavailable [phone] Alexander López MD Unamarcelina lable Jese Doyle MD Unavailable [phone] Roshni Nascimento RN Unavailable Unavailable Johana Groves [facility] Unavailable [phone] Kiet Swain MD Unavailable Winsome Pike APRN HEBREW PROFESSOR Unavailable [phone] Tori Hines [facility] Unavailable Miranda Queen [facility] Unavailable Unavailable Winsome Pike APRN HEBREW PROFESSOR Unavailable Marisel Armando MD Unavailable Marisel Armando MD Unavailable Inderjit Ugalde MD Unavailable [phone] Wesley Barrett MD Unavailable [phone] EllaCharles jimenez Michele GEIGER Unavailable [phone] Miranda Queen [facility] Unavailable Unavailable Leeann Rinaldi MD Unavailable Miranda Queen [facility] Unavailable Unavailable Dyan Fuentes MD Primary Care Provider [phone] Dyan Fuentes MD Unavailable [phone] Katiana Read MD Unavailable [phone] Meme Singleton PhD Unavailable [phone] Deena Garza APRN [facility] Unavailable [phone] Mary Del Cid NP Unavailable [phone] Elham Stack [facility] Unavailable [phone] Emerita Potter [facility] Unavailable [phone] Mary Del Cid NP Unavailable [phone] [...] Contact Diagnoses [place] [address] [place] [address] Formerly [facility] [address] [place] [phone] Referral ID Status Reason Start Date Expiration Date Visits Re quested Visits Authorized [id number] Closed 09/25/2019 09/24/2020 1 1 Comments Your provider has referred you to: [facility]: [facility] [place] [email or web address] Please be aware that coverage of these services is subject to the terms and limitations of your health insurance plan. Call member services at your health plan with any benefit or coverage questions. Please bring the following with you to your appointment: (1) Any X-Rays, CTs or MRIs which have been performed. Contact the facility where they were done to arrange for pickling grader prior to your scheduled appointment. (2) List of current medications (3) This referral request (4) Any documents/labs given to you for this referral Encounter Details Date Type Department Care Team (Late st Contact Info) Description 09/24/2019 [facility] Medical Advice [address] [address] Criselda Ma APRN HEBREW PROFESSOR Pulmonary nodules (Primary Dx) Social History Tobacco [...] st Contact Info) Description 08/18/2023 3:00 PM PUBLIC TRANSIT SPECIALIST Office Visit [facility] [address] [facility] [address] [place] [address] Katiana Read MD [address] [place] [address] Scheduled Referrals Name Type Priority Associated Diagnoses Orde r Schedule PULMONARY MEDICINE REFERRAL Referral Routine Pulmonary nodules Ordered: 09/25/2019 documented as of this encounter Visit Diagnoses Diagnosis Pulmonary nodules- Primary Other nonspecific abnormal finding of lung field documented in this encounter Additional Health Concerns Infection Onset Date Last Indicated Resolved Time Rule Out COVID-19 08/19/2020 08/19/2020 08/19/2020 4:40 PM PUBLIC TRANSIT SPECIALIST Rule Out C-difficile 02/27/2021 02/27/2021 021 [...] documented as of this encounter Care Teams Optical Goods Worker Relationship Specialty Start Date End Date Len Adhikari MD PCP - General Family Practice 11/08/16 05/09/22 [place] [address] [place] [address] PCP - General Family Medicine 05/18/22 Jovany Gonzalez MD [facility] [address] [facility] [address] [place], [place] [address] Orthopedics 02/15/17 Staci Woodward LOAD BUILDER [place] [address] [place] [address] Nurse Practitioner Nurse Practitioner Psych/Mental Health 05/10/17 [place] [address] [facility] [place] [address] Assigned PCP 11/14/16 01/22/[address] [place] [address] [place] [address] Development Mgr Dietitian, Registered 07/25/19 [place] [address] [facility] [address] [place] [address] Assigned Musculoskeletal Provider 05/02/20 09/13/20 Katiana Read MD [address] [place] [address] Assigned Endocrinology Provider 05/02/20 08/01/21 Jovita Daly MD [address] [place] [address] Assigned Surgical Provider 05/02/20 10/04/20 Alexander López MD [address] [place] [address] Assigned Sleep Provider 05/02/20 11/15/20 Jese Doyle MD [address] [place], [place] [address] Assigned Pulmonology Provider 05/02/20 04/11/21 Roshni Nascimento, RN Personal Advocate & Liaison (PAL) Family Medicine 08/18/20 Johana Groves, [facility] [facility] [address] [place], [place] [id number] Pharmacist Pharmacist 08/28/20 11/26/20 Kiet Swain MD [address] [place] [address] Referring Physician Psychiatry 09/19/20 Winsome Pike APRN HEBREW PROFESSOR [address] [place] [address] Nurse Practitioner Psychiatry 09/19/20 Tori Hines, [facility] [address] [place], [place] [address] Franchise Sales Representative Franchise Sales Representative - Clinical 09/19/20 Miranda Queen [facility] [address] [place] [address] Pharmacist Pharmacist 11/12/20 Winsome Pike, VIDHI HEBREW PROFESSOR [address] [place] [address] Assigned Behavioral Health Provider 01/04/21 07/02/22 Marisel Armando MD [address] [place] [address] Gastroenterology 02/05/21 Marisel Armando MD [address] [place] [address] Assigned Gastroenterology Provider 03/08/21 12/24/22 Inderjit Ugalde MD [address] [facility] [address] [place], [place] [address] Assigned Surgical Provider 02/15/21 08/20/22 Wesley Barrett MD [address] [place] [address] [address] [place], [place] [address] Assigned Neuroscience Provider 05/10/21 Charles Jaramillo PA-C [address] [facility] [address] [address] Assigned Musculoskeletal Provider 04/26/21 10/15/22 Miranda Queen [facility] [address] [place] [address] Assigned MTM Pharmacist 12/05/21 03/26/22 [place] [address] [place] [address] Assigned PCP 01/23/22 05/14/22 Miranda Queen [facility] [address] [place] [address] Assigned MTM Pharmacist 04/07/22 05/14/22 [place] [address] [place] [address] Assigned PCP 05/15/22 Katiana Read MD [address] [address] Assigned Endocrinology Provider 06/19/22 [place] [address] [place] [address] Assigned Behavioral Health Provider 07/03/22 12/31/22 Deena Garza APRN HEBREW PROFESSOR [address] [place] [address] Assigned Pain Medication Provider 07/19/22 10/29/22 Mary Del Cid, RAFA[place] [address] [place] [address] Nurse Practitioner Nurse Practitioner 10/18/22 Elham Stack, [facility] [address] [place] [address] Pharmacist Pharmacist 10/19/22 Emerita Potter, [facility] Clinic Feed Mixer Franchise Sales Representative - Clinical 10/29/22 11/02/22 [place] [address] [address] [place] [address] Assigned Pain Medication Provider 10/30/22 12/03/22 Michelle Guzman, DPM, Podiatry/Foot and Ankle Surgery [address] [place] [address] Assigned Musculoskeletal Provider 10/16/22 04/08/23 [place] [address] [place] [address] Assigned Pain Medication Provider 12/04/22 04/01/23 Mary Del Cid, [place] [address] [place] [address] Nurse Practitioner Nurse Practitioner 01/17/23 01/17/23 Aubrey Jones MD [address] [place] [address] Cardiovascular Disease 03/28/23 Blanquita Morales Development Mgr Diabetes Education 04/25/23 Aubrey Jones MD [address] [place] [address] Assigned Heart and Vascular Provider 05/07/23 documented as of this encounter
--- OUTSIDE RECORDS SUMMARY | 2023-08-03 13:19 | XMS_ITS | Clinical Summary ---
Author Name Unknown Organization [facility] Address [address], [place] [address] Care Team Providers Care Business Systems Manager Name Role Phone Vahid Castillo MD Primary Care Provider Unava ilable Source Comments You are receiving this document as you are listed as the primary care provider,follow-up provider, or the patient has been referred to you for consultation.This is in compliance with the Medicare andGerman Hospitalcaid EHR Incentive Program,which states Providers who transition their patient to another setting of careor provider of care or refers their patient to another provider of care shouldprovide summary care record for each transition of care or referral. [facility] Allergies Active Allergy Reactions Criticality Noted Date [...] Next Due Influenza IIV4 (Quadrivalent ) 0.5mL (12220) 03/19/2014 Influenza, Unspecified Formulation 08/22/2006 Td 12/10/1998,04/05/1990 [...] T Respiratory Rate 18 06/08/2011 7:00 AM EDGE BONDER Oxygen Saturation 93% 05/06/2016 2:09 PM CDT [...] age to complete this topic Care Teams Business Systems Manager Relationship Specialty Start Date End Date Vahid Castillo MD PCP - General 06/06/11
--- OUTSIDE RECORDS SUMMARY | 2023-08-03 13:20 | XMS_ITS | Encounter Summary ---
Author Name Unknown Organization [facility] Address [address], [place] [address] Care Team Providers Care Satellite Manager Name Role Phone Vahid Castillo MD Primary Care Provider Unava ilable Encounter Details Date Type Department Care Team Description 09/01/1999 [place] [address] [place] [address] Social History Tobacco Use Types Packs/Day Years Used Date Smoking Tobacco: Never Assessed Sex and Gender Information Value Date Recorded Sex Assigned at Not on file Gender Identity Not on file Sexual Orientation Not on file documented as of this encounter Plan of Treatment Not on file documented as of this encounter Visit Diagnoses Not on filedocumented in this encounter Care Teams Satellite Manager Relationship Specialty Start Date End Date Vahid Castillo MD PCP - General 06/06/11 documented as of this encounter
--- OUTSIDE RECORDS SUMMARY | 2023-08-03 13:20 | XMS_ITS | Encounter Summary ---
Author Name Unknown Organization [facility] Address [address] [place] [address] Care Team Providers Care Operations Director Name Role Phone Vahid Castillo MD [...] on filedocumented in this encounter Care Teams Operations Director Relationship Specialty Start Date End Date Vahid Castillo MD PCP - General 06/06/11 documented as of this encounter
--- OUTSIDE RECORDS SUMMARY | 2023-08-03 13:20 | XMS_ITS | Encounter Summary ---
Author Name Unknown Organization [facility] Address [address], [place] [address] Care Team Providers Care Advertising Sales Associate Name Role Phone Vahid Castillo MD Primary Care Provider Unava ilable Encounter Details Date Type Department Care Team Description 01/11/2000 Orders Only [facility] [place] [address] Klaus De MD [address] [place] [address] Social History Tobacco Use Types Packs/Day Years Used Date Smoking Tobacco: Never Assessed Sex and Gender Information Value Date Recorded Sex Assigned at Not on file Gender Identity Not on file Sexual Orientation Not on file documented as of this encounter Plan of Treatment Not on file documented as of this encounter Visit Diagnoses Not on filedocumented in this encounter Care Teams Advertising Sales Associate Relationship Specialty Start Date End Date Vahid Castillo MD PCP - General 06/06/11 documented as of this encounter
--- OUTSIDE RECORDS SUMMARY | 2023-08-03 13:20 | XMS_ITS | Encounter Summary ---
Author Name Unknown [facility] Address [address], [place] [address] Care Team Providers Care Graphics Specialist Name Role Phone Vahid Castillo MD Primary Care Provider Unava ilable Encounter Details Date Type Department Care Team Description 12/08/1999 Orders Only [employer], [place] [address] Social History Tobacco Use Types Packs/Day Years Used Date Smoking Tobacco: Never Assessed Sex and Gender Information Value Date Recorded Sex Assigned at Not on file Gender Identity Not on file Sexual Orientation Not on file documented as of this encounter Plan of Treatment Not on file documented as of this encounter Visit Diagnoses Not on filedocumented in this encounter Care Teams Graphics Specialist Relationship Specialty Start Date End Date Vahid Castillo MD PCP - General 06/06/11 documented as of this encounter
--- OUTSIDE RECORDS SUMMARY | 2023-08-03 13:20 | XMS_ITS | Encounter Summary ---
Author Name Unknown Organization [facility] Address [address], [place] [address] Care Team Providers Care Button Sewer Hand Name Role Phone Vahid Castillo MD Primary Care Provider Unava ilable Encounter Details Date Type Department Care Team Description 07/20/1995 Orders Only [facility] Jese Courtney MD [address] [address] Social History Tobacco Use Types Packs/Day Years Used Date Smoking Tobacco: Never Assessed Sex and Gender Information Value Date Recorded Sex Assigned at Not on file Gender Identity Not on file Sexual Orientation Not on file documented as of this encounter Plan of Treatment Not on file documented as of this encounter Visit Diagnoses Not on filedocumented in this encounter Care Teams Button Sewer Hand Relationship Specialty Start Date End Date Vahid Castillo MD PCP - General 06/06/11 documented as of this encounter
--- OUTSIDE RECORDS SUMMARY | 2023-08-03 13:20 | XMS_ITS | Encounter Summary ---
Author Name Unknown Organization [facility] Address [address], [place] [address] Care Team Providers Care Chinese Language Professor Name Role Phone Vahid Castillo MD Primary Care Provider Unava ilable Encounter Details Date Type Department Care Team Description 12/01/1999 Orders Only [facility], [place] [address] Social History Tobacco Use Types Packs/Day Years Used Date Smoking Tobacco: Never Assessed Sex and Gender Information Value Date Recorded Sex Assigned at Not on file Gender Identity Not on file Sexual Orientation Not on file documented as of this encounter Plan of Treatment Not on file documented as of this encounter Visit Diagnoses Not on filedocumented in this encounter Care Teams Chinese Language Professor Relationship Specialty Start Date End Date Vahid Castillo MD PCP - General 06/06/11 documented as of this encounter
--- OUTSIDE RECORDS SUMMARY | 2023-08-03 13:20 | XMS_ITS | Encounter Summary ---
Author Name Unknown Organization [facility] Address [address] [place] [address] Care Team Providers Care Master Steam Yacht Name Role Phone Vahid Castillo MD Primary [...] on filedocumented in this encounter Care Teams Master Steam Yacht Relationship Specialty Start Date End Date Vahid Castillo MD PCP - General 06/06/11 documented as of this encounter
--- OUTSIDE RECORDS SUMMARY | 2023-08-03 13:20 | XMS_ITS | Encounter Summary ---
Author Name Unknown Organization [facility] Address [address], [place] [address] Care Team Providers Care Marketing Regional Consultant Name Role Phone Vahid Castillo MD Primary Care Provider Unava ilable Encounter Details Date Type Department Care Team Description 09/03/1999 [place] [address] [place] [address] Social History Tobacco Use Types Packs/Day Years Used Date Smoking Tobacco: Never Assessed Sex and Gender Information Value Date Recorded Sex Assigned at Not on file Gender Identity Not on file Sexual Orientation Not on file documented as of this encounter Plan of Treatment Not on file documented as of this encounter Visit Diagnoses Not on filedocumented in this encounter Care Teams Marketing Regional Consultant Relationship Specialty Start Date End Date Vahid Castillo MD PCP - General 06/06/11 documented as of this encounter
--- OUTSIDE RECORDS SUMMARY | 2023-08-03 13:20 | XMS_ITS | Encounter Summary ---
Author Name Unknown Organization [facility] Address [address] [place] [address] Care Team Providers Care Board Of Directors Name Role Phone Vahid Castillo MD Primary [...] on filedocumented in this encounter Care Teams Board Of Directors Relationship Specialty Start Date End Date Vahid Castillo MD PCP - General 06/06/11 documented as of this encounter
--- OUTSIDE RECORDS SUMMARY | 2023-08-03 13:20 | XMS_ITS | Encounter Summary ---
Author Name Unknown Organization [facility] Address [address] [address] Care Team Providers Care Fagoting Machine Operator Name Role Phone Vahid Castillo MD Primary Care Provider Unava ilable Encounter Details Date Type Department Care Team Description 09/26/1999 Orders Only [employer], [place] [address] Social History Tobacco Use Types Packs/Day Years Used Date Smoking Tobacco: Never Assessed Sex and Gender Information Value Date Recorded Sex Assigned at Not on file Gender Identity Not on file Sexual Orientation Not on file documented as of this encounter Plan of Treatment Not on file documented as of this encounter Visit Diagnoses Not on filedocumented in this encounter Care Teams Fagoting Machine Operator Relationship Specialty Start Date End Date Vahid Castillo MD PCP - General 06/06/11 documented as of this encounter
--- OUTSIDE RECORDS SUMMARY | 2023-08-03 13:20 | XMS_ITS | Encounter Summary ---
Author Name Unknown Organization [facility] Address [address] [address] Care Team Providers Care Cobbler Sole Name Role Phone Vahid Castillo MD Primary Care Provider Unava ilable Encounter Details Date Type Department Care Team Description 10/03/1999 Orders Only [employer], [place] [address] Social History Tobacco Use Types Packs/Day Years Used Date Smoking Tobacco: Never Assessed Sex and Gender Information Value Date Recorded Sex Assigned at Not on file Gender Identity Not on file Sexual Orientation Not on file documented as of this encounter Plan of Treatment Not on file documented as of this encounter Visit Diagnoses Not on filedocumented in this encounter Care Teams Cobbler Sole Relationship Specialty Start Date End Date Vahid Castillo MD PCP - General 06/06/11 documented as of this encounter
--- OUTSIDE RECORDS SUMMARY | 2023-08-03 13:20 | XMS_ITS | Encounter Summary ---
Author Name Unknown Organization [facility] Address [address], [place] [address] Care Team Providers Care Medical Radiation Therapist Name Role Phone Vahid Castillo MD Primary Care Provider Unava ilable Encounter Details Date Type Department Care Team Description 07/29/1995 Orders Only Bety Baldwin MD [address] [facility] [address] [place], [place] [address] Social History Tobacco Use Types Packs/Day Years Used Date Smoking Tobacco: Never Assessed Sex and Gender Information Value Date Recorded Sex Assigned at Not on file Gender Identity Not on file Sexual Orientation Not on file documented as of this encounter Plan of Treatment Not on file documented as of this encounter Visit Diagnoses Not on filedocumented in this encounter Care Teams Medical Radiation Therapist Relationship Specialty Start Date End Date Vahid Castillo MD PCP - General 06/06/11 documented as of this encounter
--- OUTSIDE RECORDS SUMMARY | 2023-08-03 13:20 | XMS_ITS | Encounter Summary ---
Author Name Unknown Organization [facility] Address [address] [place] [address] Care Team Providers Care Plant Tender Name Role Phone Vahid Castillo MD Primary [...] on filedocumented in this encounter Care Teams Plant Tender Relationship Specialty Start Date End Date Vahid Castillo MD PCP - General 06/06/11 documented as of this encounter
--- OUTSIDE RECORDS SUMMARY | 2023-08-03 13:20 | XMS_ITS | Encounter Summary ---
Author Name Unknown Organization [facility] Address [address] [place] [address] Care Team Providers Care Hand Inserter Operator Name Role Phone Vahid Castillo MD [...] filedocumented in this encounter Care Teams Hand Inserter Operator Relationship Specialty Start Date End Date Vahid Castillo MD PCP - General 06/06/11 documented as of this encounter
--- OUTSIDE RECORDS SUMMARY | 2023-08-03 13:20 | XMS_ITS | Encounter Summary ---
Author Name Unknown Organization [facility] Address [address] [address] Care Team Providers Care Steam Crane Operator Name Role Phone Vahid Castillo MD Primary Care Provider Unava ilable Encounter Details Date Type Department Care Team Description 07/17/1995 Orders Only Erick Pham MD [address] [place], [place] [address] Social History Tobacco Use Types Packs/Day Years Used Date Smoking Tobacco: Never Assessed Sex and Gender Information Value Date Recorded Sex Assigned at Not on file Gender Identity Not on file Sexual Orientation Not on file documented as of this encounter Plan of Treatment Not on file documented as of this encounter Visit Diagnoses Not on filedocumented in this encounter Care Teams Steam Crane Operator Relationship Specialty Start Date End Date Vahid Castillo MD PCP - General 06/06/11 documented as of this encounter
--- OUTSIDE RECORDS SUMMARY | 2023-08-03 13:20 | XMS_ITS | Encounter Summary ---
Author Name Unknown Organization [facility] Address [address], [place] [address] Care Team Providers Care Mental Health Director Name Role Phone Vahid Castillo MD Primary Care Provider Unava ilable Encounter Details Date Type Department Care Team Description 09/16/1995 [place] [address] [place] [address] Social History Tobacco Use Types Packs/Day Years Used Date Smoking Tobacco: Never Assessed Sex and Gender Information Value Date Recorded Sex Assigned at Not on file Gender Identity Not on file Sexual Orientation Not on file documented as of this encounter Plan of Treatment Not on file documented as of this encounter Visit Diagnoses Not on filedocumented in this encounter Care Teams Mental Health Director Relationship Specialty Start Date End Date Vahid Castillo MD PCP - General 06/06/11 documented as of this encounter
--- OUTSIDE RECORDS SUMMARY | 2023-08-03 13:20 | XMS_ITS | Encounter Summary ---
Author Name Unknown Organization [facility] Address [address], [place] [address] Care Team Providers Care Sole Seamer Name Role Phone Vahid Castillo MD Primary Care Provider Unava ilable Encounter Details Date Type Department Care Team Description 09/30/1999 Orders Only [employer], [place] [address] Social History Tobacco Use Types Packs/Day Years Used Date Smoking Tobacco: Never Assessed Sex and Gender Information Value Date Recorded Sex Assigned at Not on file Gender Identity Not on file Sexual Orientation Not on file documented as of this encounter Plan of Treatment Not on file documented as of this encounter Visit Diagnoses Not on filedocumented in this encounter Care Teams Sole Seamer Relationship Specialty Start Date End Date Vahid Castillo MD PCP - General 06/06/11 documented as of this encounter
--- OUTSIDE RECORDS SUMMARY | 2023-08-03 13:20 | XMS_ITS | Encounter Summary ---
Author Name Unknown Organization [facility] Address [address] [place] [address] Care Team Providers Care Well Drill Operator Helper Cable Tool Name Role Phone Vahid Castillo MD Primary [...] on filedocumented in this encounter Care Teams Well Drill Operator Helper Cable Tool Relationship Specialty Start Date End Date Vahid Castillo MD PCP - General 06/06/11 documented as of this encounter
--- OUTSIDE RECORDS SUMMARY | 2023-08-03 13:20 | XMS_ITS | Encounter Summary ---
Author Name Unknown Organization [facility] Address [address], [place] [address] Care Team Providers Care Concrete Block Layer Name Role Phone Vahid Castillo MD Primary Care Provider Unava ilable Encounter Details Date Type Department Care Team Description 11/30/1999 Orders Only [employer], [place] [address] Social History Tobacco Use Types Packs/Day Years Used Date Smoking Tobacco: Never Assessed Sex and Gender Information Value Date Recorded Sex Assigned at Not on file Gender Identity Not on file Sexual Orientation Not on file documented as of this encounter Plan of Treatment Not on file documented as of this encounter Visit Diagnoses Not on filedocumented in this encounter Care Teams Concrete Block Layer Relationship Specialty Start Date End Date Vahid Castillo MD PCP - General 06/06/11 documented as of this encounter
--- OUTSIDE RECORDS SUMMARY | 2023-08-03 13:20 | XMS_ITS | Encounter Summary ---
Author Name Unknown Organization [facility] Address [address] [address] Care Team Providers Care Orchid Hand Name Role Phone Vahid Castillo MD Primary Care Provider Unava ilable Encounter Details Date Type Department Care Team Description 12/04/1999 Orders Only [facility] [place] [address] Klaus De MD [address] [place] [address] Social History Tobacco Use Types Packs/Day Years Used Date Smoking Tobacco: Never Assessed Sex and Gender Information Value Date Recorded Sex Assigned at Not on file Gender Identity Not on file Sexual Orientation Not on file documented as of this encounter Plan of Treatment Not on file documented as of this encounter Visit Diagnoses Not on filedocumented in this encounter Care Teams Orchid Hand Relationship Specialty Start Date End Date Vahid Castillo MD PCP - General 06/06/11 documented as of this encounter
--- OUTSIDE RECORDS SUMMARY | 2023-08-03 13:20 | XMS_ITS | Encounter Summary ---
Author Name Unknown Organization [facility] Address [address] [place] [address] Care Team Providers Care Service Aide Name Role Phone Vaihd Castillo MD Primary Care Provider Unava ilable [...] on filedocumented in this encounter Care Teams Service Aide Relationship Specialty Start Date End Date Vahid Castillo MD PCP - General 06/06/11 documented as of this encounter
--- OUTSIDE RECORDS SUMMARY | 2023-08-03 13:20 | XMS_ITS | Encounter Summary ---
Author Name Unknown Organization [facility] Address [address], [place] [address] Care Team Providers Care Manager Of Regulatory Affairs Name Role Phone Vahid Castillo MD Primary Care Provider Unava ilable Encounter Details Date Type Department Care Team Description 04/19/1995 Orders Only [facility] Jese Courtney MD [facility] [id number] [place] [address] Social History Tobacco Use Types Packs/Day Years Used Date Smoking Tobacco: Never Assessed Sex and Gender Information Value Date Recorded Sex Assigned at Not on file Gender Identity Not on file Sexual Orientation Not on file documented as of this encounter Plan of Treatment Not on file documented as of this encounter Visit Diagnoses Not on filedocumented in this encounter Care Teams Manager Of Regulatory Affairs Relationship Specialty Start Date End Date Vahid Castillo MD PCP - General 06/06/11 documented as of this encounter
--- OUTSIDE RECORDS SUMMARY | 2023-08-03 13:20 | XMS_ITS | Encounter Summary ---
Author Name Unknown Organization [facility] Address [address] [address] Care Team Providers Care Reverse Unit Operator Fisherman Name Role Phone Vahid Castillo MD Primary Care Provider Unava ilable Encounter Details Date Type Department Care Team Description 05/24/1995 Orders Only Bety Baldwin MD [address] [facility] [address] [place], [place] [id number] Social History Tobacco Use Types Packs/Day Years Used Date Smoking Tobacco: Never Assessed Sex and Gender Information Value Date Recorded Sex Assigned at Not on file Gender Identity Not on file Sexual Orientation Not on file documented as of this encounter Plan of Treatment Not on file documented as of this encounter Visit Diagnoses Not on filedocumented in this encounter Care Teams Reverse Unit Operator Fisherman Relationship Specialty Start Date End Date Vahid Castillo MD PCP - General 06/06/11 documented as of this encounter
--- OUTSIDE RECORDS SUMMARY | 2023-08-03 13:20 | XMS_ITS | Encounter Summary ---
Author Name Unknown Organization [facility] Address [address], [place] [address] Care Team Providers Care Respiratory Medicine Physician Name Role Phone Vahid Castillo MD Primary Care Provider Unava ilable Encounter Details Date Type Department Care Team Description 01/26/2000 Orders Only [facility] [place] [address] Klaus De MD [address] [place] [address] Social History Tobacco Use Types Packs/Day Years Used Date Smoking Tobacco: Never Assessed Sex and Gender Information Value Date Recorded Sex Assigned at Not on file Gender Identity Not on file Sexual Orientation Not on file documented as of this encounter Plan of Treatment Not on file documented as of this encounter Visit Diagnoses Not on filedocumented in this encounter Care Teams Respiratory Medicine Physician Relationship Specialty Start Date End Date Vahid Castillo MD PCP - General 06/06/11 documented as of this encounter
--- OUTSIDE RECORDS SUMMARY | 2023-08-03 13:20 | XMS_ITS | Encounter Summary ---
Author Name Unknown Organization [facility] Address [address] [address] Care Team Providers Care Tray Setter Name Role Phone Vahid Castillo MD Primary Care Provider Unava ilable Encounter Details Date Type Department Care Team Description 07/21/1995 Orders Only Bety Baldwin MD [address] [facility] [address] [place], [place] [id number] Social History Tobacco Use Types Packs/Day Years Used Date Smoking Tobacco: Never Assessed Sex and Gender Information Value Date Recorded Sex Assigned at Not on file Gender Identity Not on file Sexual Orientation Not on file documented as of this encounter Plan of Treatment Not on file documented as of this encounter Visit Diagnoses Not on filedocumented in this encounter Care Teams Tray Setter Relationship Specialty Start Date End Date Vahid Castillo MD PCP - General 06/06/11 documented as of this encounter
--- OUTSIDE RECORDS SUMMARY | 2023-08-03 13:21 | XMS_ITS | Encounter Summary ---
Author Name Unknown Organization [facility] Address [address] [address] Care Team Providers Care Ultrasound Manager Name Role Phone Vahid Castillo MD Primary Care Provider Unava ilable Encounter Details Date Type Department Care Team Description 01/26/1995 Orders Only Erick Pham MD [address] [place], [place] [address] Social History Tobacco Use Types Packs/Day Years Used Date Smoking Tobacco: Never Assessed Sex and Gender Information Value Date Recorded Sex Assigned at Not on file Gender Identity Not on file Sexual Orientation Not on file documented as of this encounter Plan of Treatment Not on file documented as of this encounter Visit Diagnoses Not on filedocumented in this encounter Care Teams Ultrasound Manager Relationship Specialty Start Date End Date Vahid Castillo MD PCP - General 06/06/11 documented as of this encounter
--- OUTSIDE RECORDS SUMMARY | 2023-08-03 13:21 | XMS_ITS | Encounter Summary ---
Author Name Unknown Organization [facility] Address [address] [address] Care Team Providers Care Table Top Tile Setter Name Role Phone Vahid Castillo MD Primary Care Provider Unava ilable Encounter Details Date Type Department Care Team Description 10/11/1994 Orders Only [facility] Jese Courtney MD [facility] [id number] [place] [address] Social History Tobacco Use Types Packs/Day Years Used Date Smoking Tobacco: Never Assessed Sex and Gender Information Value Date Recorded Sex Assigned at Not on file Gender Identity Not on file Sexual Orientation Not on file documented as of this encounter Plan of Treatment Not on file documented as of this encounter Visit Diagnoses Not on filedocumented in this encounter Care Teams Table Top Tile Setter Relationship Specialty Start Date End Date Vahid Castillo MD PCP - General 06/06/11 documented as of this encounter
--- OUTSIDE RECORDS SUMMARY | 2023-08-03 13:21 | XMS_ITS | Clinical Summary ---
Author Name Unknown Organization [facility] Address [place], [place] [address] Care Team Providers Care Core Fitter Name Role Phone Len Adhikari MD [...] MD. 50 mL 0 9 Active Insulin [place], Disposable, (BD INSULIN PEN NEEDLE UF MINI) [...] Care Agent: Roosevelt Hernandez Relationship: spouse Phone: [phone] Secondary Health Care Agent: Amber Rivas Relationship: [...] on file and signed 01/14/2015. Designated pharmacy: [facility] [phone] Prescribing physician:Dr. Dyan Martin MD. Diagnosis: Dysthymia [...] was admitted to hospice 12/06/15. Please call [phone] with questions. Patient has identified Health Care Agent(s): Yes Add Health Care Agents: Yes Health Care Agent(s): Primary Health Care Agent: Roosevelt Hernandez Relationship: spouse Phone: [phone] Secondary Health Care Agent: Amber Rivas Relationship: [...] as needed for immediate comfort.- Avoid calling [phone], call [phone] instead - If possible do not transport [...] Care Agent: Rooseveltchristi FullerHernandez Relationship: Phone: (h) [phone] (c) [phone] Secondary Health Care Agent: Amber Rob Relationship: daughter Phone: (c) [phone] Third Health Care Agent: Juwan Hernandez Relationship: son Phone: (c) [phone] Fourth Health Care Agent: Delma Rob Relationship: daughter Phone: (c) [phone] Patient has Advanced Care Plan Documents (Health Care Directive, POLST): Yes Advance Care Plan Documents: Health Care Directive Patient has identified Specific Treatment Preferences: Yes Specific Treatment Preferences: a.) Code Status: CPR/Attempt Resuscitation Last Assessment & Plan: Advance Care Planning: Disease-specific Session Kaila Hernandez is a [facility] patient and her PCP is Dr. Yuriy Moreno; boilermaker welder is Dr. Gonzales and Dr. Chiki Benites is her pain doctor. Advance care planning discussions were completed with Kaila and her healthcare agent, , Roosevelt Hernandez. . 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 Kaila tells me she will miss them [...] no matter what is most important to Kalia.) HIGH SURVIVAL; LOW COGNITIVE STATUS: If Kaila [...] pleasure to meet with Kaila and , oRosevelt. Call if there are questions. Respectfully, Archana Young RN CM Advance Care Planning [facility] [phone] e-mail: [email or web address] 02/11/2010 Other chronic pancreatitis 07/18/2007 Overview: numerouis [...] 2010 10/31/2010 03/30/2013 Overview: 1st relapse hospitalized [facility] October 2010 Shortness of breath 10/19/2010 03/30/20 [...] seen on ultrasound 2007. Plan: repeat ultrasound. [facility] Screen for colon cancer 04/07/201004/11 Advance care [...] the fall. Second seizure was managed at [facility] and records not currently available. 3rd seziure [...] Overview: Dr. Chiki Benites- chronic pain, sees [id number] Dr. Rhys [facility] LBP most [...] zocor- recheck in 3 months 06/15- Dr. Badlerrama- tchol 238, TG 461, HDL 46- starting insulin pump, rec to recheck 3 months after getting pump per Dr. Balderrama as felt likely related to poor glycemic control HYPOTHYROIDISM ACQUIRED UNSPEC- Dr. Balderrama 06/15/2005 03/30/2013 Overview: on synthroid extremely high dose 06/15- nl TSH, free T4 on 350mcg of synthroid Routine general medical exam ination at a [facility] care facility 06/15/2005 01/14/2010 Overview: [...] Department Care Team Description 06/17/2023 Refill [facility] [address] [place] [address] Mary Del Cid NP Refill Request (Buprenorphine-naloxone ) 06/15/2023 Refill [facility] [address] [place] [address] Mary Del Cid NP Refill Request (Buprenorphine-naloxone [...] on file Medical Devices Implanted Type Area Histology Manager Device Identifier Shelf Expiration Date Model / Serial / Lot Port Silcn Power 8fr Isp Sgl Lumen - [id number] Implanted:Qty : 1 on 07/19/2011 at [facility] Left: Subclavian Vein 03/19/2013 [id number]# / / [id number] Bone Matrix 2.5cc Bio4 Viable - [id number] Implanted:Qty : 1 on 02/01/2017 by Jovany Gonzalez MD at [facility] Right: Ankle [employer] 01/21/2018 [id number] # / / [id number] Description:Unit No: [id number] Plate Ankle 5 Hole Variax - [id number] Implanted:Qty : 1 on 02/01/2017 by Jovany Gonzalez MD at [facility] Right: Ankle [employer] [id number] / / Description:Sterilization lo ad 3 6 [id number] Screw Foot 3.5x12mm Variax Foot T10 Lock - [id number] Implanted:Qty : 2 on 02/01/2017 by Jovany Gonzalez MD at [facility] Right: Ankle [employer] [id number]# / / Description:Sterilization lo ad 3 6 [id number] Screw Foot 3.5x14mm Variax Foot T10 Lock - [id number] Implanted:Qty : 3 on 02/01/2017 by Jovany Gonzalez MD at [facility] Right: Ankle [employer] [id number]# / / Description:Sterilization lo ad 3 6 [id number] Screw Foot 3.5x46mm Variax Foot T10 Non-Lock - [id number] Implanted:Qty : 1 on 02/01/2017 by Jovany Gonzalez MD at [facility] Right: Ankle [employer] [id number]# / / Description:Sterilization lo ad 3 6 [id number] Screw Foot 3.5x42mm Variax Foot T10 Non-Lock - [id number] Implanted:Qty : 1 on 02/01/2017 by Jovany Gonzalez MD at [facility] Right: Ankle [employer] [id number] # / / Description:Sterilization lo ad 3 6 [id number] Explanted Type Area Histology Manager Device Identifier Shelf Expiration Date Model / Serial / Lot Wire Kirs .[id number] Smoothacemedical - [id number] Explanted:Qty: 2 on 02/01/2017 at [facility] Right: Ankle [employer] 1645-10-0 00# / / Description:Sterilization lo ad 1 8 [id number] Wire Kirs .[id number] Smooth6/Pk - [id number] Explanted:Qty: 1 on 02/01/2017 at [facility] Right: Ankle [employer] 1646-10-0 00# / / Description:Sterilization lo ad 1 8 [id number] Additional Health Concerns Infection Onset Date Last [...] Documents on File Type Date Recorded Patient Steeple Jack Expl anation POLST 12/12/2015 3:32 PM 12/11/15 [...] Comments Code Status Discussion: Discussed Care Teams Core Fitter Relationship Specialty Start Date End Date Len Adhikari MD PCP - General 01/27/17
--- OUTSIDE RECORDS SUMMARY | 2023-08-03 13:21 | XMS_ITS | Encounter Summary ---
Author Name Unknown Organization [facility] Address [address], [place] [address] Care Team Providers Care Photographic Developer And Printer Name Role Phone Vahid Castillo MD Primary Care Provider Unava ilable Encounter Details Date Type Department Care Team Description 07/21/[address] [facility] Jese Courtney MD [address] [address] Social History Tobacco Use Types Packs/Day Years Used Date Smoking Tobacco: Never Assessed Sex and Gender Information Value Date Recorded Sex Assigned at Not on file Gender Identity Not on file Sexual Orientation Not on file documented as of this encounter Plan of Treatment Not on file documented as of this encounter Visit Diagnoses Not on filedocumented in this encounter Care Teams Photographic Developer And Printer Relationship Specialty Start Date End Date Vahid Castillo MD PCP - General 06/06/11 documented as of this encounter
== END 2023-08-03 12:24 | disposition home or self-care (01) ==
LOC: OR 12:24
PROVIDERS: PCP Family Medicine; Visit Provider Ophthalmology
PROC: (CPT 66984; principal; 2023-08-03 09:45)
DX: H25.11 Age-related nuclear cataract, right eye (principal); E11.9 Type 2 diabetes mellitus without complications
CPT/HCPCS: 66984; 00142; 82962; A9270; J2250; J3010; V2632

== ENCOUNTER 2023-08-24 08:00 | Day surgery (SDC) | payer OTHER, MEDICARE, SELFPAY ==
--- OUTSIDE RECORDS SUMMARY | 2023-08-03 09:54 | XMS_ITS | Clinical Summary ---
Author Name Unknown Organization [facility] Address [address] [place] [address]. [place] [address] Care Team Providers Care Senior Lead Java Developer Name Role Phone Jovany Gonzalez MD Unavailable CrissyStaci jeong NP Unavailable [phone] Unavailable [phone] Roshni Nascimento RN Unavailable Unavailable Kiet Swain MD Unavailable [phone] Winsome Pike APRN [employer]LLAR STITCHER Unavailable [phone] Tori Hines [facility] Unavailable Miranda Queen [facility] Unavailable Unavailable Marisel Armando MD Unavailable Wesley Barrett MD Unavailable [phone] Dyan Fuentes MD Primary Care Provider [phone] Dyan Fuentes MD Unavailable [phone] Katiana Read MD Unavailable [phone] Mary Del Cid SHOT COAT TENDER Unavailable [phone] Elham Stack [facility] Unavailable [phone] Aubrey Jones MD Unavailable [phone] Blanquita Morales Unavailable Unavailable Aubrey Jones MD Unavailable [phone] Allergies Active Allergy Reactions Criticality Noted Date Comments Bees Anaphylaxis High 07/31/2014 Droperidol Other (See Comments) Low 01/05/2002 Behavioral changes Levofloxacin Hemihydrate Rash Medium 05/17/2011 Nalbuphine Hcl Low 01/05/2002 Behavioral changes Nsaids Medium 08/15/2007 Hx GI Bleed Promethazine Other (See Comments) Low 05/02/2017 Patient reports she gets mean & jerky Metoclopramide Hcl Hives Medium 11/30/2010 Medications Medication Sig Dispensed Refills Start Date End Date Status nitroGLYcerin (NITROSTAT) 0.4 MG sublingual tabletIndications :Chest pain, unspecified type Place 1 tablet (0.4 mg) under the tongue every 5 minutes as needed for chest pain 25 tablet 0 08/20/19 20 Active ferrous sulfate (FEROSUL) 325 (65 Fe) MG tabletIndications :Generalized muscle weakness,Hypokale marisa,Tobacco dependence Take 325 mg by mouth daily (with breakfast) 100 tablet 1 05/06/20 21 Active calcium carbonate (OS-ALISA) 1500 (600 Ca) MG tabletIndications :Tobacco dependence Take 1 tablet (600 mg) by mouth 2 times daily (with meals) 100 tablet 0 05/06/20 21 Active Potassium Gluconate 595 MG CAPSIndications:G eneralized muscle weakness Take 1 capsule by mouth daily 100 capsule 1 05/06/20 21 Active desvenlafaxine (PRISTIQ) 100 MG 24 hr tabletIndications :Anxiety TAKE 1 TABLET BY MOUTH EVERY DAY 90 tablet 0 12/03/19 22 Active desvenlafaxine (PRISTIQ) 50 MG 24 hr tabletIndications :Anxiety TAKE 1 TABLET BY MOUTH ONCE DAILY TAKE WITH 100MG TABS FOR A TOTAL DAILY DOSE OF 150MGS 90 tablet 0 03/08/20 22 Active EPINEPHrine (ANY BX GENERIC EQUIV) 0.3 MG/0.3ML injection 2-packIndications :Bee sting allergy Inject 0.3 mLs (0.3 mg) into the muscle as needed for anaphylaxis (EPI-PEN) 2 each 1 06/14/20 22 Active Continuous Blood Gluc Instructional Technology Coach (DEXCOM G6 PULLMAN CONDUCTOR) DEVIIndications:T ype 2 diabetes mellitus without complication, with long-term current use of insulin (H) USE DAILY 1 each 0 06/15/20 22 Active clonazePAM (KLONOPIN) 1 MG tablet Take 1 mg by mouth 2 times daily 0 Active brexpiprazole (REXULTI) 2 MG tablet Take 2 mg by mouth daily 0 Active aspirin 81 MG EC tablet Take 81 mg by mouth daily 0 Active hydrOXYzine (ATARAX) 25 MG tablet Take 25 mg by mouth 4 times daily 0 Active nystatin (MYCOSTATIN) 047407 UNIT/GM external ointment Apply topically 2 times daily as needed 0 Active Vitamin D3 (VITAMIN D, CHOLECALCIFEROL,) 25 mcg (1000 units) tablet Take 1 tablet by mouth daily 0 Active simethicone (MYLICON) 80 MG chewable tabletIndications :Pancolitis (H) Take 1 tablet (80 mg) by mouth every 6 hours as needed for flatulence or cramping 0 10/29/19 23 Active naloxone (NARCAN) 4 MG/0.1ML nasal sprayIndications: At risk for substance overdose [place] 1 spray (4 mg) into one nostril alternating nostrils once as needed for opioid reversal 0.2 mL 0 11/12/19 23 Active ondansetron (ZOFRAN) 8 MG tabletIndications :Nausea Take 1 tablet (8 mg) by mouth every 8 hours as needed for nausea 90 tablet 1 11/26/19 23 Active methocarbamol (ROBAXIN) 500 MG tabletIndications :Chronic pain syndrome,Muscle spasm Take 2 tablets (1,000 mg) by mouth 4 times daily 150 tablet 2 02/15/20 23 Active albuterol (PROAIR HFA/PROVENTIL HFA/VENTOLIN HFA) 108 (90 Base) MCG/ACT inhalerIndication s:Chronic obstructive pulmonary disease, unspecified COPD type (H) Inhale 2 puffs into the lungs every 4 hours as needed for shortness of breath or wheezing 8.5 g 0 05/12/20 23 Active amLODIPine (NORVASC) 10 MG tabletIndications :Benign essential hypertension Take 1 tablet (10 mg) by mouth daily 90 tablet 3 05/12/20 23 Active Continuous Blood Gluc Sensor (DEXCOM G6 SENSOR) MISCIndications:T ype 2 diabetes mellitus without complication, with long-term current use of insulin (H) USE 1 SENSOR EVERY 10 DAYS 9 each 3 05/12/20 23 Active cyanocobalamin (CYANOCOBALAMIN) 1000 MCG/ML injectionIndicati ons:Vitamin B12 deficiency INJECT 1 ML (1000 MCG) INTRAMUSCULARLY EVERY 30 DAYS. DISCARD 28 DAYS AFTERFIRST USE Strength: 1,000 mcg/mL 3 mL 3 05/12/20 23 Active fenofibrate (TRICOR) 48 MG tabletIndications :Hypertriglycerid emia Take 1 tablet (48 mg) by mouth daily 90 tablet 3 05/12/20 23 Active metoprolol tartrate (LOPRESSOR) 25 MG tabletIndications :Benign essential hypertension TAKE 1 TABLET BY MOUTH TWICE A DAY 180 tablet 3 05/12/20 23 Active pantoprazole (PROTONIX) 40 MG EC tabletIndications :Gastroesophageal reflux disease without esophagitis Take 1 tablet (40 mg) by mouth daily 90 tablet 3 05/12/20 23 Active rosuvastatin (CRESTOR) 40 MG tabletIndications :Hypertriglycerid emia,Hyperlipidem ia LDL goal <100 Take 1 tablet (40 mg) by mouth daily 90 tablet 3 05/12/20 23 Active Fluticasone-Umecl idin-Vilanterol (TRELEGY ELLIPTA) 200-62.5-25 MCG/ACT oral inhalerIndication s:Chronic obstructive pulmonary disease, unspecified COPD type (H) Inhale 1 puff into the lungs daily 28 each 3 05/12/20 23 Active colestipol (COLESTID) 1 g tabletIndications :Abdominal pain, generalized Take 1 tablet (1 g) by mouth 2 times daily for 90 days 180 tablet 3 05/12/20 23 024 Active omega-3 acid ethyl esters (LOVAZA) 1 g capsuleIndication s:Hypertriglyceri demia Take 2 capsules by mouth 2 times daily 360 capsule 3 05/12/20 23 Active ipratropium - albuterol 0.5 mg/2.5 mg/3 mL (DUONEB) 0.5-2.5 (3) MG/3ML neb solutionIndicatio ns:Chronic obstructive pulmonary disease, unspecified COPD type (H) Take 1 vial (3 mLs) by nebulization every 6 hours as needed for shortness of breath, wheezing or cough 90 mL 1 06/23/20 23 Active insulin glargine 100 UNIT/ML penIndications:Ty pe 2 diabetes mellitus without complication, with long-term current use of insulin (H) Inject 50 Units Subcutaneous every morning 65 mL 1 07/12/19 24 Active insulin aspart (NOVOLOG FLEXPEN) 100 UNIT/ML penIndications:Ty pe 1 diabetes mellitus with diabetic neuropathy (H) INJECT 1 UNIT FOR 50 POINTS ABOVE 150 WITH EACH MEAL (TOTAL DAILY DOSE 10-15 UNITS PER DAY) 15 mL 1 07/12/19 24 Active levothyroxine (SYNTHROID/LEVOTH ROID) 200 MCG tabletIndications :Postprocedural hypothyroidism Take 2 tablets (400 mcg) by mouth daily 180 tablet 0 07/14/19 24 Active buprenorphine HCl-naloxone HCl (SUBOXONE) 4-1 MG per filmIndications:C hronic pain syndrome Place 0.5 Film under the tongue 4 times daily OK to fill and start 07/19/23 and start 07/21/23 60 Film 0 07/19/19 24 Active Continuous Blood Gluc Transmit (DEXCOM G6 TRANSMITTER) MISCIndications:T ype 2 diabetes mellitus without complication, with long-term current use of insulin (H) CHANGE EVERY 3 MONTHS TO CONTINUOUSLY MONITOR BLOOD GLUCOSE. 1 each 0 07/21/19 24 Active ketorolac (ACULAR) 0.5 % ophthalmic solution PLACE 1 DROP INTO OPERATIVE EYE FOUR TIMES A DAY STARTING AFTER SURGERY 0 07/26/19 24 Active ofloxacin (OCUFLOX) 0.3 % ophthalmic solution PLACE 1 DROP TO OPERATIVE EYE 4 TIMES A DAY STARTING TUESDAY BEFORE SURGERY 0 07/26/19 24 Active prednisoLONE acetate (PRED FORTE) 1 % ophthalmic suspension INSTILL 1 DROP TO OPERATIVE EYE 4 TIMES A DAY STARTING AFTER SURGERY 0 07/26/19 24 Active risperiDONE (RISPERDAL) 1 MG tablet Take 1 mg by mouth daily at 2 pm 0 07/26/19 24 Active insulin aspart (NOVOLOG FLEXPEN) 100 UNIT/ML penIndications:Ty pe 1 diabetes mellitus with diabetic neuropathy (H) INJECT 1 UNIT FOR 50 POINTS ABOVE 150 WITH EACH MEAL (TOTAL DAILY DOSE 10-15 UNITS PER DAY) 15 mL 1 05/07/20 22 024 Discontinued(Re order (No AVS)) levothyroxine (SYNTHROID/LEVOTH ROID) 175 MCG tabletIndications :Postprocedural hypothyroidism Take 2 tablets (350 mcg) by mouth daily 180 tablet 1 06/15/20 22 024 Discontinued(Do se adjustment) Continuous Blood Gluc Transmit (DEXCOM G6 TRANSMITTER) MISCIndications:T ype 2 diabetes mellitus without complication, with long-term current use of insulin (H) Change every 3 months to continuously monitor blood glucose. 1 each 3 06/15/20 22 024 Discontinued risperiDONE (RISPERDAL M-TABS) 0.[address] 0.5 mg under the tongue every morning 0 024 Discontinued(Du plicate Therapy (No AVS / No eCancel)) buprenorphine HCl-naloxone HCl (SUBOXONE) 4-1 MG per filmIndications:C hronic pain syndrome Place 0.5 Film under the tongue 4 times daily OK to fill and start 06/20/23 60 Film 0 06/20/20 23 024 Discontinued(Re order (No AVS)) insulin glargine (BASAGLAR KWIKPEN) 100 UNIT/ML penIndications:Ty pe 2 diabetes mellitus without complication, with long-term current use of insulin (H) Inject 40 Units Subcutaneous every morning 15 mL 1 06/23/20 23 024 Discontinued(Re order (No AVS)) HYDROcodone-aceta minophen (NORCO) 5-325 MG tablet take 1 tablet by mouth every 4 to 6 hours as needed 0 05/27/20 23 024 Discontinued(St opped by Patient (No AVS)) Active Problems Problem Noted Date Diagnosed Date Chronic kidney disease, stage 3a 07/12/2023 Hepatic steatosis 12/03/2022 Hyperglycemia 12/03/2022 Pulmonary nodules 12/03/2022 Elevated troponin 12/03/2022 Acute on chronic pancreatitis 12/03/2022 Hypothyroidism, unspecified type 12/03/2022 Chest pain, unspecified type 12/03/2022 Morbid obesity 10/25/2022 Pancolitis 10/14/2022 Nausea and vomiting, unspecified vomiting type 0 10/14/2022 Postoperative back pain 11/15/2021 S/P laminectomy 11/10/2021 Cervical spondylosis with myelopathy 05/18/2021 Abdominal pain, generalized 01/16/2021 Prolonged Q-T interval on ECG 01/16/2021 Generalized anxiety disorder 11/19/2020 Hypokalemia 10/27/2020 Intractable abdominal pain 10/27/2020 Generalized muscle weakness 08/19/2020 At risk for healthcare associated infection 07/13 Weakness of right foot 08/09/2020 S/P total hip arthroplasty 08/06/2020 Insomnia, unspecified type 07/29/2020 Chronic diastolic congestive heart failure 06/02 MARIELLE (obstructive sleep apnea) 07/24/2018 Recurrent Clostridium difficile diarrhea 018 Postablative hypothyroidism 11/25/2017 Migraine 11/09/2017 Type 2 diabetes mellitus wit hout complication, without long-term current use of insulin 08/27/2017 Nausea with vomiting 08/27/2017 Avascular necrosis of bone of hip 05/24/2017 NAFLD (nonalcoholic fatty liver disease) 017 Benign essential hypertension 02/20/2017 Opioid dependence 02/20/2017 COPD (chronic obstructive pulmonary disease) 11/2016 Moderate episode of recurrent major depressive d isorder 01/12/2017 Anxiety 12/28/2016 Vitamin D deficiency 11/30/2010 Chronic pain 11/30/2010 Hyperlipidemia LDL goal <100 11/30/2010 Vitamin B12 deficiency Neurogenic bladder Overview: intermittent straight cath Recurrent pancreatitis Hypertriglyceridemia Hereditary and idiopathic peripheral neuropathy Overview: abstracted 12/26/01 Problem list name updated by automated process. Provider to review Degeneration of intervertebral disc, site unspec ified Overview: abstracted 12/26/01 Esophageal reflux Overview: abstracted 12/26/01 Nephrolithiasis Diabetic neuropathy Tobacco dependence Resolved Problems Problem Noted Date Diagnosed Date Resolved Date Postoperative fever 11/15/2021 05/07/20 22 Post-op pain 06/09/2021 05/07/2022 Abnormal results of liver function studies 01/16/2021 05/07/2022 Hepatic steatosis 01/16/2021 05/07/2022 Urinary tract infection in female 01/16/2021 05/12/2021 Other chronic back pain 10/27/202004/11 Acute pancreatitis without i nfection or necrosis, unspecified pancreatitis type 10/27/2020 05/07/2022 Encephalopathy 08/31/2020 12/25/2020 Acute respiratory failure with hypoxia 08/31/2020 12/25/2020 Cellulitis of right lower extremity 08/31/2020 12/25/2020 Ingestion of unknown drug, u ndetermined intent, initial encounter 08/31/2020 05/11/2021 Pneumonia of right lower lob e due to infectious organism 08/31/2020 05/12/2021 Seizure 08/31/2020 10/16/2021 Confusion 08/19/2020 12/25/2020 Fever postop 08/19/2020 12/25/2020 Wound infection 08/19/2020 05/12/2021 Severe sepsis 08/19/2020 05/12/2021 Positive blood culture 08/10/202005/12 Overview: GPB / has portacath History of Clostridium difficile colitis 08/10/2020 05/07/2022 Port-A-Cath in place 08/10/2020 021 Shortness of breath 08/09/2020 12/26/19 21 Pain of right lower leg 08/09/2020 11/08/2020 Fever in adult 08/09/2020 12/25/2020 Community acquired pneumonia , unspecified laterality 08/09/2020 12/25/2020 Colitis due to Clostridium difficile 07/29/2020 05/07/2022 Obesity (BMI 35.0-39.9) with comorbidity 06/23/2018 07/21/2020 Factitious disorder 06/23/2018 06/02/20 20 Syncope 04/22/2018 12/25/2020 C. difficile diarrhea 04/22/20182018 Transaminitis 04/22/2018 05/07/2022 Narcotic dependence 11/25/2017 01/05/20 18 Atypical chest pain 08/27/2017 01/03/20 19 Acute cystitis with hematuria 07/19/2017 01/04/2018 Acute cystitis without hematuria 05/02/2017 04/19/2018 Diarrhea of presumed infectious origin 05/02/2017 04/19/2018 Dehydration 05/02/2017 05/07/2022 C. difficile colitis 04/14/2017 022 Closed fracture of right fib ang with routine healing 02/20/2017 12/25/2020 S/P ORIF (open reduction int ernal fixation) fracture 02/20/2017 05/07/2022 Physical deconditioning 02/20/201712/10 Advanced care planning/counseling discussion 7 02/13/2018 Overview: Advance Care Planning 12/22/2016: ACP Review of Chart / Resources Provided: Reviewed chart for advance care plan. Kaila Hernandez has no plan or code status on file however states presence of ACP document. Copy requested. Added by Georgie Rock CMA Diarrhea 11/18/2016 04/19/2018 Hypotension 11/18/2016 01/04/2018 Pancreatitis 11/07/2015 04/19/2018 Personality disorder 06/07/2011 021 Chronic congestive heart failure 05/17/2011 06/02/2020 UTI (urinary tract infection) 05/17/2011 09/07/2017 Metabolic encephalopathy 05/17/201108/2020 Type 1 diabetes, HbA1c goal < 7% 11/30/2010 08/27/2017 Polyglandular dysfunction 08/20/2006 Overview: LW Modifier: DM,B12 def.,hypothyroid ; Polyglandular Dysfunction NOS Hypothyroidism 11/25/2017 Overview: abstracted 12/26/01 Problem list name updated by automated process. Provider to review S/P cardiac cath 05/11/2021 Overview: reportedly negative Encounters Date Type Department Care Team Description 08/02/2023 Telephone [facility] [place] [id number] [facility] [address] [place] [address] Mary Del Cid NP Medication Request 08/01/2023 2:00 PM [employer]ULL THROUGH HOOKER Office Visit [facility] [address] [place] [address] Haydee Moody NP Preop general physical exam (Primary Dx); Need for shingles vaccine; Benign essential hypertension; Chronic obstructive pulmonary disease, unspecified COPD type (H); Morbid obesity (H); Hypertriglyceridemia; Hypothyroidism, unspecified type; Chronic kidney disease, stage 3a (H); Uncomplicated opioid dependence (H); Type 1 diabetes mellitus with other specified complication (H) 08/01/2023 Travel 07/26/2023 Telephone [facility] [id number] [place] [phone] Dyan Fuentes MD Panel Management 07/25/2023 MyC Medical Advice [address] [phone] Roshni Nascimento RN 07/21/2023 Refill [facility] [address] [place] [address] Katiana Read MD Medication Refill 07/19/2023 3:00 PM [employer] Virtual Visit [facility] [address] [facility] [address] [place] [phone] Mary Del Cid NP Chronic pain syndrome (Primary Dx); S/P lumbar laminectomy; S/P cervical spinal fusion; Muscle spasm 07/18/2023 Telephone [facility] [address] [place] [phone] Mary Del Cid NP Opioid Refill (buprenorphine HCl-naloxone HCl (SUBOXONE) 4-1 MG per film ) 07/14/2023 Orders Only [address] [phone] Lenka Parks PA-C Postprocedural hypothyroidism 07/13/2023 Telephone [facility] [address] [place] [address] Katiana Read MD 07/12/2023 10:30 AM [employer] THR[employer]ER Office Visit [facility] [address] [place] [address] Lenka Parks PA-C Type 2 diabetes mellitus without complication, without long-term current use of insulin (H) (Primary Dx); Chronic kidney disease, stage 3a (H); Postablative hypothyroidism; Type 2 diabetes mellitus without complication, with long-term current use of insulin (H); Type 1 diabetes mellitus with diabetic neuropathy (H) 07/12/2023 MyC Medical Advice [facility] [address] [place] [address] Sagrario Chidi S 07/12/2023 MyC Medical Advice [facility] [address] [place] [phone] Rachelle Benites [employer] KNOCK OUT WORKER MyChart Communication 07/12/2023 Travel 07/11/2023 Travel 06/23/2023 2:30 PM [employer] Office Visit [address] [phone] Dyan Fuentes MD Routine general medical examination at a health care facility (Primary Dx); Medicare annual wellness visit, subsequent; Need for vaccination against respiratory syncytial virus; Benign essential hypertension; Chronic obstructive pulmonary disease, unspecified COPD type (H); Type 2 diabetes mellitus without complication, with long-term current use of insulin (H); Other chronic pain; Postablative hypothyroidism; Hyperlipidemia LDL goal <100 06/23/2023 Travel 06/20/2023 Travel 06/20/2023 Refill [facility] [address] [place] [address] [address] [place] [address] Mary Del Cid NP Opioid Refill (buprenorphine HCl-naloxone HCl (SUBOXONE) 4-1 MG per film) 05/31/2023 4:00 PM [employer] THR[employer]ER Therapy Visit [facility] [id number] [place] [address] [address] [place] [address] Dyan Villar PT Chronic pain syndrome (Primary Dx) 05/31/2023 Travel 05/27/2023 Telephone [facility] [address] [place] [phone] Dyan Fuentes MD Progress 05/17/2023 Refill [facility] [address] [address] [facility] [address] [place] [address] Mary Del Cid NP Opioid Refill (buprenorphine HCl-naloxone HCl (SUBOXONE) 4-1 MG per film) 05/12/2023 2:30 PM CDT Office Visit [facility] [address] [place] [phone] Dyan Fuentes MD Chronic obstructive pulmonary disease, unspecified COPD type (H) (Primary Dx); Tobacco use disorder; Benign essential hypertension; Type 2 diabetes mellitus without complication, with long-term current use of insulin (H); Vitamin B12 deficiency; Hypertriglyceridemia; Gastroesophageal reflux disease without esophagitis; Hyperlipidemia LDL goal <100; Abdominal pain, generalized; Elevated d-dimer 05/12/2023 Travel 05/11/2023 3:40 PM CDT Therapy Visit [facility] [address] [facility] [address] [place] [address] Mary Del Cid NP Edwards, Jennifer, PT Chronic pain syndrome (Primary Dx) 05/11/2023 Travel 05/03/2023 10:30 AM CDT Office Visit [facility] [address] [place] [address] [address] [place] [phone] Aubrey Jones MD Abnormal electrocardiogram 05/03/[address] [phone] Dyan Fuentes MD 05/03/2023 Travel from Last 3 Months Immunizations Name Administration Dates Next Due COVID-19 12+ () (Pfizer) 05/12/2023 COVID-19 Vaccine ([employer]) 09/22/2020 Flu, Unspecified 08/22/2006 Hepatitis B, Adult 07/11/1989 Influenza (IIV3) PF 03/30/2013, 2,08/21/2008,2006,06/15/2005,06/30/2004,06/13/2000 Influenza Vaccine 18-64 (Flublok) 2022,06/14/2022,05/28/2020,2018,04/24/2018 Influenza Vaccine >6 months,quad, PF 05/28/2020, 04/11/2017 Influenza Vaccine IM Ages 6- 35 Months 4 Valent (PF) 06/08/2015,03/19/2014,03/30/2013,2011,05/17/2011,06/26/2009 Pneumococcal 20 valent Conju gate (Prevnar 20) 06/23/2023 Pneumococcal 23 valent 04/01/2010,05/10/2007 RSV Vaccine (Abrysvo) 06/24/2023 TD,PF 7+ (Tenivac) 07/11/1999,12/10/1998, 990 TDAP (Adacel,Boostrix) 07/18/2020 TDAP Vaccine (Adacel) 12/24/2009 Zoster recombinant adjuvante d (SHINGRIX) 05/28/2020 Family History Medical History Relation Comments Liver Disease Father Other - See Comments Father murdered Substance Abuse Father Colon Cancer Mother Substance Abuse Sister 1 Substance Abuse Sister 2 Relation Status Comments Father Mother Sister 1 Sister 2 Other Social History Tobacco Use Types Packs/Day Years Used Date Smoking Tobacco: Former Cigarettes 1 50 Q uit: 05/19/2023 Passive Smoke Exposure: Past Smokeless Tobacco: Never Tobacco Cessation:Counseling Given: Not Answered Alcohol Use Standard Drinks/Week Comments Not Currently 0 (1 standard drink = 0.6 oz pur e alcohol) Social Connection and Isolation Panel [NHANES] A nswer Date Recorded In a typical week, how many times do you talk on the phone with family, friends, or neighbors? Twice a week 06/20/2023 How often do you get together with friends or re latives? Once a week 06/20/2023 How often do you attend restoration or caodaism serv ices? Never 06/20/2023 Do you belong to any clubs o r organizations such as restoration groups, unions, fraternal or athletic groups, or school groups? No 06/20/2023 How often do you attend meet ings of the clubs or organizations you belong to? Never 06/20/2023 Are you , , di vorced, , never , or living with a partner? 06/20/2023 AUDIT-C Answer Date Recorded Q1: How often do you have a drink containing alc ohol? Monthly or less 06/20/2023 Q2: How many drinks containi ng alcohol do you have on a typical day when you are drinking? 1 or 2 06/20/2023 Q3: How often do you have si x or more drinks on one occasion? Never 06/20/2023 PHQ-2 Answer Date Recorded PHQ-2 Score 2 08/01/2023 [facility] - Occupational Stress Questionnaire Answer Date Recorded Do you feel stress - tense, restless, nervous, or anxious, or unable to sleep at night because your mind is troubled all the time - these days? Rather much 06/20/2023 Exercise Vital Sign Answer Date Recorde d On average, how many days pe r week do you engage in moderate to strenuous exercise (like a brisk walk)? 3 days 06/20/2023 On average, how many minutes do you engage in exercise at this level? 20 min 06/20/2023 Adolescent Education Answer Date Record ed Getting School Help Needed Not on file 04/06 Food Insecurity Answer Date Recorded Within the past 12 months, d id you worry that your food would run out before you got money to buy more? No 08/01/2023 Within the past 12 months, d id the food you bought just not last and you didn? t have money to get more? No 08/01/2023 Housing Stability Answer Date Recorded Do you have housing? Yes 08/01/2023 Are you worried about losing your housing? No 08/01/2023 Financial Resource Strain Answer Date R ecorded Within the past 12 months, h ave you or your family members you live with been unable to get utilities (heat, electricity) when it was really needed? No 08/01/2023 Transportation Needs Answer Date Record ed Within the past 12 months, h as lack of transportation kept you from medical appointments, getting your medicines, non-medical meetings or appointments, work, or from getting things that you need? No 08/01/2023 Interpersonal Safety Answer Date Record ed Do you feel physically and e motionally safe where you currently live? Yes 06/23/2023 Within the past 12 months, h ave you been hit, slapped, kicked or otherwise physically hurt by someone? No 06/23/2023 Within the past 12 months, h ave you been humiliated or emotionally abused in other ways by your partner or ex-partner? No 06/23/2023 Education Answer Date Recorded What is the highest level of school you have completed or the highest degree you have received? Bachelor's degree (e.g., BA, AB, BS) 09/20/2020 Sex and Gender Information Value Date Recorded Sex Assigned at Female 01/24/2020 11:14 AM CDT Gender Identity Female 11/15/2020 9:02 PM CDT Sexual Orientation Straight 11/06/2020 8: 58 AM CDT Last Filed Vital Signs Vital Sign Reading Time Taken Comments Blood Pressure 119/82 08/01/2023 1:22 PM [facility] Pulse 70 08/01/2023 1:22 PM [facility] Temperature 36.6 ??C (97.8 ??F) 08/01/2023 1:22 PM CS T Respiratory Rate 20 08/01/2023 1:22 PM [facility] Oxygen Saturation 96% 08/01/2023 1:22 PM [facility] Inhaled Oxygen Concentration - - Weight 115.7 kg (255 lb) 08/01/2023 1:22 PM [facility] Height 172.7 cm (5' 8) 08/01/2023 1:22 PM [facility] Body Mass Index 38.77 08/01/2023 1:22 PM [facility] Plan of Treatment Upcoming Encounters Date Type Department Care Team (Late st Contact Info) Description 08/18/2023 3:00 PM [facility] Office Visit [facility] [address] [place] [address] Katiana Read MD [address] [place] [address] Health Maintenance Due Date Last Done Comments CT COLONOGRAPHY 1959 FLEX SIG 1959 sDNA (Cologuard) 1959 DIABETIC FOOT EXAM 10/25/2019 10/24/2018, 10/24/2018 ZOSTER IMMUNIZATION (2 of 2) 07/23/2020 05/28/2020 HF ACTION PLAN 03/15/2021 03/15/2018 MAMMO SCREENING 12/02/2022 12/02/2020 FIT 10/15/2023 10/14/2022, 10/27/2020 LUNG CANCER SCREENING 12/04/2023 12/03/2022 , 09/06/2022, 08/19/2020, Additional history exists ALT 12/12/2023 2022, 06/0 08/2022, 12/09/2022, Additional history exists CBC 12/12/2023 2022, 06/0 08/2022, 12/09/2022, Additional history exists HEMOGLOBIN 12/12/2023 2022, 06/0 08/2022, 12/10/2022, Additional history exists A1C 12/23/2023 06/23/2023, 04/0 02/2023, 06/12/2022, Additional history exists BMP 12/23/2023 06/23/2023, 06/0 09/2022, 12/10/2022, Additional history exists PHQ-9 01/30/2024 08/01/2023, 06/10, 05/12/2023, Additional history exists EYE EXAM 04/19/2024 04/19/2023, 08/2020, 02/20/2019 ANNUAL REVIEW OF HM ORDERS 05/12/202405/12, 05/07/2022, 11/17/2020 LIPID 06/23/2024 06/23/2023, 09/09, 06/12/2022, Additional history exists MEDICARE ANNUAL WELLNESS VISIT 06/23/2024 06/23/2023, 06/23/2023, 06/14/2022, Additional history exists MICROALBUMIN 06/23/2024 06/23/2023, 09/2021, 05/11/2021, Additional history exists ADVANCE CARE PLANNING 06/23/2028 06/23/2023 , 02/13/2018, 02/13/2018 DTAP/TDAP/TD IMMUNIZATION (3 - Td or Tdap) 07/18/2030 07/18/2020, 12/24/2009, 07/11/1999, Additional history exists COLONOSCOPY 10/28/2032 10/28/2022, 10/10, 05/09/2017, Additional history exists COLORECTAL CANCER SCREENING 10/28/2032 SPIROMETRY Completed 12/22/2016, 06/24/2011 COPD ACTION PLAN Completed 03/15/2018 DEPRESSION ACTION PLAN Completed 09/04/2018 HIV SCREENING Completed 08/23/2019 HEPATITIS C SCREENING Completed 02/09/2021 , 04/23/2018, 01/04/2017 URINALYSIS Completed 12/03/2022, 11/09, 10/14/2022, Additional history exists COVID-19 Vaccine Completed 05/12/2023, , 09/22/2020 INFLUENZA VACCINE Completed 05/12/2023, , 05/28/2020, Additional history exists Pneumococcal Vaccine: Pediatrics (0 to 5 Years) and At-Risk Patients (6 to 64 Years) Completed 06/23/2023, 04/01/2010, 05/10/2007 RSV VACCINE ( & 60+) Completed 06/24/2023 TSH W/FREE T4 REFLEX Completed 07/12/2023, 07/12/2023, 12/03/2022, Additional history exists HEPATITIS A IMMUNIZATION Discontinued HPV IMMUNIZATION Aged Out No longer e ligible based on patient's age to complete this topic IPV IMMUNIZATION Aged Out No longer e ligible based on patient's age to complete this topic MENINGITIS IMMUNIZATION Aged Out No l onger eligible based on patient's age to complete this topic PAP Discontinued RSV MONOCLONAL ANTIBODY Aged Out No l onger eligible based on patient's age to complete this topic Goals Goal Patient Goal Type Associated Problems Recent Progress Patient-Stated? Author Establish Regular Follow-Ups with PCP Care Plan HbA1C Not In Goal No Blanquita Morales Get HbA1C Level in Goal Care Plan HbA1C Not In Goal No Blanquita Morales Understand diabetes pathophysiology and disease progression Care Plan Diabetes Self-Managemen t Education Needed to Optimize Self-Care Behaviors No Blanquita Morales Healthy Eating - follow a healthy eating pattern for diabetes Care Plan Diabetes Self-Managemen t Education Needed to Optimize Self-Care Behaviors No Blanquita Morales Being Active - get regular physical activity, working up to at least 150 minutes per week Care Plan Diabetes Self-Managemen t Education Needed to Optimize Self-Care Behaviors Blanquita Stuart Monitoring - monitor glucose and ketones as directed Care Plan Diabetes Self-Managemen t Education Needed to Optimize Self-Care Behaviors No Blanquita Morales Taking Medication - patient is consistently taking medications as directed Care Plan Diabetes Self-Managemen t Education Needed to Optimize Self-Care Behaviors No Blanquita Morales Problem Solving - know how to prevent and manage short-term diabetes complications Care Plan Diabetes Self-Managemen t Education Needed to Optimize Self-Care Behaviors No Blanquita Morales Reducing Risks - know how to prevent and treat long-term diabetes complications Care Plan Diabetes Self-Managemen t Education Needed to Optimize Self-Care Behaviors Blanquita Stuart Healthy Coping - use available resources to cope with the challenges of managing diabetes Care Plan Diabetes Self-Managemen t Education Needed to Optimize Self-Care Behaviors No Blanquita Morales Medical Devices Implanted Type Area Net Software Engineer Device Identifier Shelf Expiration Date Model / Serial / Lot Bone Matrix 5c [id number] [id number] - [id number] Implanted:Qty: 1 on 12/13/2017 Bone/Tissu e/Biologic Right: Ankle [employer] 01/18/2019 7033-3908 / [id number] / [id number] Graft Bone Putty Dbx 01ml [id number] - [id number] Implanted:Qty: 1 on 05/18/2021 by Wesley Barrett MD at [facility] Bone/Tissu e/Biologic N/A: Spine Cervical [employer]IS 11/19/2022 [id number] / / [id number] [place] Iconix 2.3mm With 2.0mm Braid Implanted:Qty: 1 on 12/13/2017 Metallic Hardware/A nchor Right: Ankle [employer] 07/02/2019 [id number] / / [id number] 6.5mm Low Profile Hex Scr 20mm Implanted:Qty: 1 on 08/06/2020 by Lencho Mayo MD at [facility] Metallic Hardware/A nchor Right: Hip [employer] 08/18/2024 [id number] / / [id number] 4.[address] Screw Implanted:Qty: 1 on 05/18/2021 by Wesley Barrett MD at [facility] Metallic Hardware/A nchor N/A: Spine Cervical [employer] [id number] / / [id number] 2020 Imp Head Femoral Strk Biolox Delta Ceramic V40 36mm Implanted:Qty: 1 on 08/06/2020 by Lencho Mayo MD at [facility] Total Joint Component/ Insert Right: Hip [employer] 04/10/2025 [id number] 6 / / [id number] Power Port Trident Ii Tritanium, Clusterhole Acetabular Shell, Janeth 50mm Implanted:Qty: 1 on 08/06/2020 by Lencho Mayo MD at [facility] Right: Hip [employer] 03/15/2023 702-04-50 D / / [id number] Endoskeleton Tc Interbody System Medium 16mmx 14mm X 7mm- 6 Degree Implanted:Qty: 1 on 05/18/2021 by Wesley Barrett MD at [facility] N/A: Spine Cervical [employer] 02/05/2026 [id number] -[id number] / / [id number] Explanted Type Area Net Software Engineer Device Identifier Shelf Expiration Date Model / Serial / Lot 3.[address] Screw Explanted:Qty : 1 on 05/18/2021 by Wesley Barrett MD at [facility] Metallic Hardware/Anc hor N/A: Spine Cervical [employer] [id number] / / [id number] 2020 Port-/ 8 Implanted:Qty : 1 on 08/31/2017 by Ace Valles MD Explanted:Qty : 1 on 08/12/2020 by Ace Valles MD Port Right: Vein BARD 04/09/2018 REF [id number] / / [id number] Procedures Procedure Name Priority Date/Time Associated Diagnosis Comments T4 FREE Routine 07/12/2023 11:07 AM [facility] Postablative hypothyroidism TSH Routine 07/12/2023 11:07 AM [facility] Postablative hypothyroidism LIPID REFLEX TO DIRECT LDL PANEL Routine 06/23/2023 3:28 PM [facility] Hyperlipidemia LDL goal <100 ALBUMIN RANDOM URINE QUANTITATIVE Routine 06/23/2023 3:28 PM [facility] Type 2 diabetes mellitus without complication, with long-term current use of insulin (H) URINE DRUG SCREEN CLINIC Routine 06/23/2023 3:28 PM [facility] Other chronic pain HEMOGLOBIN A1C Routine 06/23/2023 3:28 PM [facility] Type 2 diabetes mellitus without complication, with long-term current use of insulin (H) BASIC METABOLIC PANEL Routine 06/23/2023 3:28 PM [facility] Benign essential hypertension D DIMER QUANTITATIVE Routine 05/12/2023 2:50 PM CDT Elevated d-dimer EKG 12-LEAD COMPLETE W/READ - CLINICS Routine 05/03/2023 Abnormal electrocardiogram from Last 3 Months Results * (ABNORMAL) TSH (07/12/2023 11:07 AM [facility]) TSH 74.10(H) 0.30 - 4.20 uIU/mL 07/12/2023 10:35 PM [facility] Blood BLOOD SPECIMEN / Unknown Venipuncture / Unknown 07/12/2023 11:07 AM [facility] 07/12/2023 11:07 AM [facility] Lenka Parks PA-C LAB - BLOOD ORDERABL ES [facility] [address] [facility], [address] [place] [address], [facility] [place] [phone] * (ABNORMAL) T4, free (07/12/2023 11:07 AM [facility]) Free T4 0.53(L) 0.90 - 1.70 ng/dL 07/12/2023 10:35 PM [facility] Blood BLOOD SPECIMEN / Unknown Venipuncture / Unknown 07/12/2023 11:07 AM [facility] 07/12/2023 11:07 AM [facility] Lenka Parks PA-C LAB - BLOOD ORDERABL ES [facility] [place] [facility] [address] [facility], [address] [place] [id number] [phone] * (ABNORMAL) Drug Abuse Screen Panel 13, Urine (Pain Care Map) - lab collect (06/23/2023 3:28 PM [facility]) Pathologist [facility] Cannabinoids (31-eeo-3-carboxy -9-THC) Detected(A ) Not Detected, Indeterminate 06/24/2023 2:08 PM [facility] Comment: Cutoff for a positive cannabinoid is greater than 50 ng/ml. This is an unconfirmed screening result to be used for medical purposes only. Phencyclidine Not Detected Not Detected, Indeterminate 06/24/2023 2:08 PM [facility] Comment:Cutoff for a negativ e PCP is 25 ng/mL or less. Cocaine (Benzoylecgonine) Not Detected Not Detected, Indeterminate 06/24/2023 2:08 PM [facility] Comment:Cutoff for a negativ e cocaine is 150 ng/ml or less. Methamphetamine (d-Methamphetamin e) Not Detected Not Detected, Indeterminate 06/24/2023 2:08 PM [facility] Comment:Cutoff for a negativ e methamphetamine is 500 ng/ml or less. Opiates (Morphine) Not Detected Not Detected, Indeterminate 06/24/2023 2:08 PM [facility] Comment:Cutoff for a negativ e opiate is 100 ng/ml or less. Amphetamine (d-Amphetamine) Not Detected Not Detected, Indeterminate 06/24/2023 2:08 PM [facility] Comment:Cutoff for a negativ e amphetamine is 500 ng/mL or less. Benzodiazepines (Nordiazepam) Not Detected Not Detected, Indeterminate 06/24/2023 2:08 PM [facility] Comment:Cutoff for a negativ e benzodiazepine is 150 ng/ml or less. Tricyclic Antidepressants (Desipramine) Not Detected Not Detected, Indeterminate 06/24/2023 2:08 PM [facility] Comment:Cutoff for a negativ e tricyclic antidepressant is 300 ng/ml or less. Methadone Not Detected Not Detected, Indeterminate 06/24/2023 2:08 PM [facility] Comment:Cutoff for a negativ e methadone is 200 ng/ml or less. Barbiturates (Butalbital) Not Detected Not Detected, Indeterminate 06/24/2023 2:08 PM [facility] Comment:Cutoff for a negativ e barbituate is 200 ng/ml or less. Oxycodone Not Detected Not Detected, Indeterminate 06/24/2023 2:08 PM [facility] Comment:Cutoff for a negativ e oxycodone is 100 ng/mL or less. Buprenorphine Detected(A ) Not Detected, Indeterminate 06/24/2023 2:08 PM [facility] Comment: Cutoff for a positive buprenorphine is greater than 10 ng/ml. This is an unconfirmed screening result to be used for medical purposes only. Urine MID-STREAM URINE SPECIMEN / Unknown Non-blood Collection / Unknown 06/23/2023 3:28 PM [facility] 06/23/2023 3:34 PM [facility] Dyan Fuentes MD LAB - URINE ORDER LENA [facility] [address] Lab (no room number, 1st floor of clinic) [place] [address], [facility] [place] [phone] * Albumin Random Urine Quantitative with Creat Ratio (06/23/2023 3:28 PM [facility]) Creatinine Urine mg/dL 42.4 mg/dL 06/24/2023 6:21 PM [facility] Comment:The reference ranges have not been established in urine creatinine. The results should be integrated into the clinical context for interpretation. Albumin Urine mg/L <12.0 mg/L 2022 6:21 PM [facility] Comment:The reference ranges have not been established in urine albumin. The results should be integrated into the clinical context for interpretation. Albumin Urine mg/g Cr 06/24/2023 6:21 PM [facility] Comment: Unable to calculate, urine albumin and/or urine creatinine is outside detectable limits. Microalbuminuria is defined as an albumin:creatinine ratio of 17 to 299 for males and 25 to 299 for females. A ratio of albumin:creatinine of 300 or higher is indicative of overt proteinuria. Due to biologic variability, positive results should be confirmed by a second, first-morning random or 24-hour timed urine specimen. If there is discrepancy, a third specimen is recommended. When 2 out of 3 results are in the microalbuminuria range, this is evidence for incipient nephropathy and warrants increased efforts at glucose control, blood pressure control, and institution of therapy with an lvkyffkypbl-ririxhjzvj-zkbemh (MACK) inhibitor (if the patient can tolerate it). ?? Urine MID-STREAM URINE SPECIMEN / Unknown Non-blood Collection / Unknown 06/23/2023 3:28 PM [facility] 06/23/2023 3:34 PM [facility] Dyan Fuentes MD LAB - URINE ORDER LENA [facility] [place] [facility] [address] [facility], [address] [place] [address], [facility] [place] [phone] * (ABNORMAL) Lipid panel reflex to direct LDL Fasting (06/23/2023 3:28 PM [facility]) Cholesterol 244(H) <200 mg/dL 06/24/2023 6:12 PM [facility] Triglycerides 168(H) <150 mg/dL 06/24/2023 6:12 PM [facility] Direct Measure HDL 75 >=50 mg/dL 06/24/2023 6:12 PM [facility] LDL Cholesterol Calculated 135(H) <=100 mg/dL 06/24/2023 6:12 PM [facility] Non HDL Cholesterol 169(H) <130 mg/dL 06/24/2023 6:12 PM [facility] Patient Fasting > 8hrs? Yes 06/24/2023 6:12 PM [facility] Blood BLOOD SPECIMEN / Unknown Venipuncture / Unknown 06/23/2023 3:28 PM [facility] 06/23/2023 3:34 PM [facility] Narrative [facility] - 06/24/2023 6:12 PM [facility] Cholesterol Desirable: ??<200 mg/dL Triglycerides Normal: ??Less than 150 mg/dL Borderline High: ??150-199 mg/dL High: ??200-499 mg/dL Very High: ??Greater than or equal to 500 mg/dL Direct Measure HDL Female: ??Greater than or equal to 50 mg/dL Male: ??Greater than or equal to 40 mg/dL LDL Cholesterol Desirable: ??<100mg/dL Above Desirable: ??100-129 mg/dL Borderline High: ??130-159 mg/dL High: ??160-189 mg/dL Very High: ??>= 190 mg/dL Non HDL Cholesterol Desirable: ??130 mg/dL Above Desirable: ??130-159 mg/dL Borderline High: ??160-189 mg/dL High: ??190-219 mg/dL Very High: ??Greater than or equal to 220 mg/dL Dyan Fuentes MD LAB - BLOOD ORDER LENA [facility] [address] [facility], [address] [place], [place] [id number], [place] [phone] * (ABNORMAL) Hemoglobin A1c (06/23/2023 3:28 PM [facility]) Hemoglobin A1C 8.9(H) 0.0 - 5.6 % 06/23/2023 3:49 PM [facility] LV LABORATORY Blood BLOOD SPECIMEN / Unknown Venipuncture / Unknown 06/23/2023 3:28 PM [facility] 06/23/2023 3:34 PM [facility] Narrative LABORATORY - 06/23/2023 3:49 PM [facility] Results confirmed by repeat test. Dyan Fuentes MD LAB - BLOOD ORDER LENA LABORATORY [facility] [id number] [place] [address] (no room number, [facility] [place] [address] [phone] * (ABNORMAL) BASIC METABOLIC PANEL (06/23/2023 3:28 PM [facility]) Pathologist [facility] Sodium 139 135 - 145 mmol/L 06/24/2023 6:12 PM [facility] Comment:Reference intervals for this test were updated on 04/05/2023 to more accurately reflect our healthy population. There may be differences in the flagging of prior results with similar values performed with this method. Interpretation of those prior results can be made in the context of the updated reference intervals. Potassium 4.5 3.4 - 5.3 mmol/L 06/24/2023 6:12 PM [facility] Chloride 101 98 - 107 mmol/L 06/24/2023 6:12 PM [facility] Carbon Dioxide (CO2) 27 22 - 29 mmol/L 06/24/2023 6:12 PM [facility] Anion Gap 11 7 - 15 mmol/L 06/24/2023 6:12 PM [facility] Urea Nitrogen 14.3 8.0 - 23.0 mg/dL 06/24/2023 6:12 PM [facility] Creatinine 1.28(H) 0.51 - 0.95 mg/dL 06/24/2023 6:12 PM [facility] GFR Estimate 47(L) >60 mL/min/1. 73m2 06/24/2023 6:12 PM [facility] Calcium 9.9 8.8 - 10.2 mg/dL 06/24/2023 6:12 PM [facility] Glucose 156(H) 70 - 99 mg/dL 06/24/2023 6:12 PM [facility] Blood BLOOD SPECIMEN / Unknown Venipuncture / Unknown 06/23/2023 3:28 PM [facility] 06/23/2023 3:34 PM [facility] Dyan Fuentes MD LAB - BLOOD ORDER LENA [facility] [place] [facility] [address] [facility], [address] [phone] [phone] * (ABNORMAL) D dimer, quantitative (05/12/2023 2:50 PM CDT) D-Dimer Quantitative 1.37(H) 0.00 - 0.50 ug/mL FEU 05/13/2023 1:36 PM CDT OX LABORATORY Blood BLOOD SPECIMEN / Unknown Venipuncture / Unknown 05/12/2023 2:50 PM CDT 05/12/2023 2:50 PM CDT Narrative OX LABORATORY - 05/13/2023 1:36 PM CDT This D-dimer assay is intended for use in conjunction with a clinical pretest probability assessment model to exclude pulmonary embolism (PE) and deep venous thrombosis (DVT) in outpatients suspected of PE or DVT. The cut-off value is 0.50 ug/mL FEU. For patients 50 years of age or older, the application of age-adjusted cut-off values for D-Dimer may increase the specificity without significant effect on sensitivity. The literature suggested calculation age adjusted cut-off in ug/L = age in years x 10 ug/L. The results in this laboratory are reported as ug/mL rather than ug/L. The calculation for age adjusted cut off in ug/mL= age in years x 0.01 ug/mL. For example, the cut off for a 76 year old male is 75 x 0.01 ug/mL = 0.76 ug/mL (760 ug/L). M Flakita et al. Age adjusted D-dimer cut-off levels to rule out pulmonary embolism: The ADJUST-PE Study. COLE 2014;311:5662-2430.; HJ Parker et al. Diagnostic accuracy of conventional or age adjusted D-dimer cutoff values in older patients with suspected venous thromboembolism. Systemic review and meta-analysis. BMJ 2013:346:f2492. Dyan Fuentes MD LAB - BLOOD ORDER LENA [facility] [address] Lab (no room number, 1st floor of clinic) [place] [address], [facility] [place] [phone] * EKG 12-lead complete w/read - Clinics (performed today) (05/03/2023) Aubrey Jones MD ECG ORDERABLES from Last 3 Months Additional Health Concerns Problem Noted Date Diagnosed Date HbA1C Not In Goal 04/25/2023 Diabetes Self-Management Edu cation Needed to Optimize Self-Care Behaviors 04/25/2023 Advance Directives For more information, please contact: [phone] Latest Code Status on File Code Status Date Activated Date Inactivated Comments Full Code 12/03/2022 5:32 PM 2022 7:13 PM All ba sic and advanced life-sustaining interventions are performed as appropriate Question Answer Comments Code status determined by: Discussion with patient/ legal decision maker Code Status History Code Status Date Activated Date Inactivated Comments Full Code 10/26/2022 3:11 PM 10/28/2022 5:32 PM All b asic and advanced life-sustaining interventions are performed as appropriate Question Answer Comments Code status determined by: Discussion with patient/ legal decision maker Full Code 10/15/2022 12:33 AM 10/17/2022 3:41 PM All ba sic and advanced life-sustaining interventions are performed as appropriate Question Answer Comments Code status determined by: Discussion with patient/ legal decision maker Full Code 11/15/2021 8:05 PM 11/16/2021 2:13 PM All bas ic and advanced life-sustaining interventions are performed as appropriate Question Answer Comments Code status determined by: Discussion with patient/ legal decision maker Full Code 11/10/2021 5:03 PM 11/13/2021 1:54 PM All bas ic and advanced life-sustaining interventions are performed as appropriate Question Answer Comments Code status determined by: Discussion with patient/ legal decision maker Care Teams Senior Lead Java Developer Relationship Specialty [place] [address] [place] [address] PCP - General Family Medicine 05/18/22 Jovany Gonzalez MD [facility] [address] [facility] [address] [place] [address] Orthopedics 02/15/17 Staci Woodward [employer] [place] [address] [place], [place] [address] Nurse Practitioner Nurse Practitioner Psych/Mental Health 05/10/17 Reanna Smith, [facility] [place] [address] [place], [place] [phone] Document Imaging Specialist Dietitian, Registered 07/25/19 Roshni Nascimento, RN Personal Advocate & Liaison (PAL) Family Medicine 08/18/20 Kiet Swain MD [address] [facility] [address] [place] [address] Referring Physician Psychiatry 09/19/20 Winsome Pike APRN [employer] [address] [place], [place] [address] Nurse Practitioner Psychiatry 09/19/20 Tori Hines, [facility] [address] [place] [address] Manager Of Care Manager Of Care - Clinical 09/19/20 Miranda Queen, [facility] [address] [place] [address] Pharmacist Pharmacist 11/12/20 Marisel Armando MD [address] [place], [place] [address] Gastroenterology 02/05/21 Wesley Barrett MD [address] [facility] [address] [place] [address] Assigned Neuroscience Provider 05/10/21 [place] [address] [place] [address] Assigned PCP 05/15/22 Katiana Read MD [address] [facility] [address] [place], [place] [address] Assigned Endocrinology Provider 06/19/22 Mary Del Cid, [facility] [address] [place] [address] Nurse Practitioner Nurse Practitioner 10/18/22 Elham Stack, [facility] [address] [place] [address] Pharmacist Pharmacist 10/19/22 Aubrey Jones MD [address] [place] [address] Cardiovascular Disease 03/28/23 Blanquita Morales Document Imaging Specialist Diabetes Education 04/25/23 Aubrey Jones MD [address] [place] [address] Assigned Heart and Vascular Provider 05/07/23
--- OUTSIDE RECORDS SUMMARY | 2023-08-03 09:54 | XMS_ITS ---
Care Plan Created on: August 03, 2023 Kaila Hrae : 1960 Sex: Female Author Name Unknown Organization [place] Address [address] [place] [address]. [place] [address] Care Team Providers Care Direct Marketing Executive Name Role Phone Jovany Gonzalez MD Unavailable CrissyStaci jeong NP Unavailable [phone] Unavailable [phone] Roshni Nascimento RN Unavailable Unavailable Kiet Swain MD Unavailable [phone] Winsome Pike APRN PHLEBOTOMY TECH Unavailable [phone] Tori Hines [facility] Unavailable Miranda Queen [facility] Unavailable Unavailable Marisel Armando MD Unavailable Wesley Barrett MD Unavailable [phone] Dyan Fuentes MD Primary Care Provider [phone] Dyan Fuentes MD Unavailable [phone] Katiana Read MD Unavailable [phone] Mary Del Cid TEACHERS' AIDE Unavailable + [phone] Elham Stack [facility] Unavailable [phone] Aubrey Jones MD Unavailable [phone] Blanquita Morales Unavailable Unavailable Aubrey Jones MD Unavailable [phone] Active Problems Problem Noted Date Diagnosed Date [...] 21 Pain of right lower leg 08/09/2020 11/0 08/2020 Fever in adult 08/09/2020 12/25/2020 Community acquired [...] S/P cardiac cath 05/11/2021 Overview: reportedly negative Additional Health Concerns Problem Noted Date Diagnosed Date HbA1C Not In Goal 04/25/2023 Diabetes Self-Management Edu cation Needed to Optimize Self-Care Behaviors 04/25/2023 Goals Goal Patient Goal Type Associated Problems Recent Progress Patient-Stated? Author Establish Regular Follow-Ups with PCP Care Plan HbA1C Not In Goal No Blanquita Morales Get HbA1C Level in Goal Care Plan HbA1C Not In Goal No Blanquita Morales Understand diabetes pathophysiology and disease progression Care Plan Diabetes Self-Managemen t Education Needed to Optimize Self-Care Behaviors Blanquita Stuart Healthy Eating - follow a healthy eating pattern for diabetes Care Plan Diabetes Self-Managemen t Education Needed to Optimize Self-Care Behaviors Blanquita Stuart Being Active - get regular physical activity, working up to at least 150 minutes per week Care Plan Diabetes Self-Managemen t Education Needed to Optimize Self-Care Behaviors Blanquita Stuart Monitoring - monitor glucose and ketones as directed Care Plan Diabetes Self-Managemen t Education Needed to Optimize Self-Care Behaviors Blanquita Stuart Taking Medication - patient is consistently taking medications as directed Care Plan Diabetes Self-Managemen t Education Needed to Optimize Self-Care Behaviors Blanquita Stuart Problem Solving - know how to prevent and manage short-term diabetes complications Care Plan Diabetes Self-Managemen t Education Needed to Optimize Self-Care Behaviors Blanquita Stuart Reducing Risks - know how to prevent and treat long-term diabetes complications Care Plan Diabetes Self-Managemen t Education Needed to Optimize Self-Care Behaviors Blanquita Stuart Healthy Coping - use available resources to cope with the challenges of managing diabetes Care Plan Diabetes Self-Managemen t Education Needed to Optimize Self-Care Behaviors No Blanquita Morales Interventions Intervention Entry Date Outcome Provide education on when to seek professional counseling 04/25/2023 Discuss methods for coping with stress 04/25/2023 Discuss recognizing feelings about having diabetes 04/25/2023 Provide education on tobacco cessation 04/25/2023 Provide education on recommendations for heart health - lipid levels and goals, blood pressure and goals, and aspirin therapy, if indicated 04/25/2023 Provide education on recommended care for dental, eye and foot health 04/25/2023 Provide education on major complications of diabetes, prevention, early diagnostic measures and treatment of complications 04/25/2023 Provide education on how to care for diabetes on sick days 04/25/2023 Provide education on safe travel with diabetes 04/25/2023 Discuss barriers to medication adherence with patient and provide management technique ideas as appropriate 04/25/2023 Provide education on insulin and injectable diabetes medications, including administration, storage, site selection and rotation for injection sites 04/25/2023 Provide education on ketone monitoring (when to monitor, frequency, etc.) 04/25/2023 Provide education on blood glucose monitoring (purpose, proper technique, frequency, glucose targets, interpreting results, when to use glucose control solution, sharps disposal) 04/25/2023 Explore community resources including walking groups, assistance programs, and home videos 04/25/2023 Develop physical activity plan with patient 04/25/2023 Discuss barriers to physical activity with patient 04/25/2023 Provide education on relationship of activity to glucose and precautions to take if at risk for low glucose 04/25/2023 Develop individualized healthy eating plan with patient 04/25/2023 Provide education on eating out 04/25/2023 Provide education on heart healthy eating 04/25/2023 Provide education on weight management 04/25/2023 Provide education on managing carbohydrate intake (carbohydrate counting, plate planning method, etc.) 04/25/2023 Provide education on portion control and consistency in amount, composition and timing of food intake 04/25/2023 Provide education on diabetes pathophysiology and disease progression specfic to patient's diabetes type 04/25/2023 Discuss diabetes treatment plan with patient 04/25/2023 Refer patient to appropriate extended care head orthopedic team physician, as needed (Medication Therapy Management, Behavioral Health, Physical Therapy, etc.) 04/25/2023 Educate patient on benefits of regular glucose monitoring 04/25/2023 Educate patient on diabetes education self-management topics 04/25/2023 Discuss schedule for PCP visits with patient 04/25/2023 Discuss with PCP the recommended timing for patient's next follow up visit(s) 04/25/2023 Related Goals and Interventions Goal Associated Intervent ions Establish Regular Follow-Ups with PCP Melony lovett schedule for PCP visits with patient; Discuss with PCP the recommended timing for patient's next follow up visit(s) Get HbA1C Level in Goal Discuss diabetes treatment plan with patient; Refer patient to appropriate extended care head orthopedic team physician, as needed (Medication Therapy Management, Behavioral Health, Physical Therapy, etc.); Educate patient on benefits of regular glucose monitoring; Educate patient on diabetes education self-management topics Understand diabetes pathophy siology and disease progression Provide education on diabetes pathophysiology and disease progression specfic to patient's diabetes type Healthy Eating - follow a he althy eating pattern for diabetes Develop individualized healthy eating pl an with patient; Provide education on eating out; Provide education on heart healthy eating; Provide education on weight management; Provide education on managing carbohydrate intake (carbohydrate counting, plate planning method, etc.); Provide education on portion control and consistency in amount, composition and timing of food intake Being Active - get regular p hysical activity, working up to at least 150 minutes per week Explore community resources including walking groups, assistance programs, and home videos; Develop physical activity plan with patient; Discuss barriers to physical activity with patient; Provide education on relationship of activity to glucose and precautions to take if at risk for low glucose Monitoring - monitor glucose and ketones as directed Provide education on ketone monitoring (when to monitor, frequency, etc.); Provide education on blood glucose monitoring (purpose, proper technique, frequency, glucose targets, interpreting results, when to use glucose control solution, sharps disposal) Taking Medication - patient is consistently taking medications as directed Discuss barriers to medication adherence with patient and provide management technique ideas as appropriate; Provide education on insulin and injectable diabetes medications, including administration, storage, site selection and rotation for injection sites Problem Solving - know how t o prevent and manage short-term diabetes complications Provide education on how to care for diabetes on sick days; Provide education on safe travel with diabetes Reducing Risks - know how to prevent and treat long-term diabetes complications Provide education on tobacco cessation; Provide education on recommendations for heart health - lipid levels and goals, blood pressure and goals, and aspirin therapy, if indicated; Provide education on recommended care for dental, eye and foot health; Provide education on major complications of diabetes, prevention, early diagnostic measures and treatment of complications Healthy Coping - use availab le resources to cope with the challenges of managing diabetes Provide education on when to seek professional counseling; Discuss methods for coping with stress; Discuss recognizing feelings about having diabetes
--- OUTSIDE RECORDS SUMMARY | 2023-08-03 09:54 | XMS_ITS | Encounter Summary ---
Author Name Unknown Organization [place] Address [address] [place] [address]. [place] [address] Care Team Providers Care Janitorial Cleaner Name Role Phone Jovany Gonzalez MD Unavailable CrissyStaci jeong CONSTRUCTION PROJECT COORDINATOR Unavailable [phone] Unavailable [phone] Roshni Nascimento RN Unavailable Unavailable Kiet Swain MD Unavailable [phone] Winsome Pike APRN MANAGER REGIONAL SALES Unavailable [phone] Tori Hines [facility] Unavailable Miranda Queen [facility] Unavailable Unavailable Marisel Armando MD Unavailable Wesley Barrett MD Unavailable [phone] Dyan Fuentes MD Primary Care Provider [phone] Dyan Fuentes MD Unavailable [phone] Katiana Read MD Unavailable [phone] Mary Del Cid CONSTRUCTION PROJECT COORDINATOR Unavailable + [phone] Elham Stack [facility] Unavailable [phone] Aubrey Jones MD Unavailable [phone] Blanquita Morales Unavailable Unavailable Aubrey Jones MD Unavailable [phone] Encounter Details Date Type Department Care Team (Latest Contact Info) Description 08/01/2023 Travel Social History Tobacco Use Types Packs/Day Years Used Date Smoking Tobacco: Former Cigarettes 1 50 Q uit: 05/19/2023 Passive Smoke Exposure: Past Smokeless Tobacco: Never Alcohol Use Standard Drinks/Week Comments Not Currently [...] week 06/20/2023 How often do you attend adventist or anglican serv ices? Never 06/20/2023 Do you belong to any clubs o r organizations such as adventist groups, unions, fraternal or athletic groups, or [...] Answer Date Recorded PHQ-2 Score 2 08/01/2023 [facility] Occup[facility] ional Health - Occupational Stress [...] Orientation Straight 11/06/2020 8: 58 AM CDT documented as of this encounter Plan of Treatment Upcoming Encounters Date Type Department Care Team (Late st Contact Info) Description 08/18/2023 3:00 PM PNEUMATIC DEICER INSPECTOR Office Visit [facility] [address] [place] [address] Katiana Read MD [address] [place] [address] [place] [address] documented as of this encounter Goals Goal Patient Goal Type Associated Problems Recent Progress Patient-Stated? Author Establish Regular Follow-Ups with PCP Care Plan HbA1C Not In Goal Blanquita Stuart Get HbA1C Level in Goal Care Plan HbA1C Not In Goal No Blanquita Morales Understand diabetes pathophysiology and disease progression Care Plan Diabetes Self-Managemen t Education Needed to Optimize Self-Care Behaviors Blanquita Stuart Healthy Eating - follow a healthy eating pattern for diabetes Care Plan Diabetes Self-Managemen t Education Needed to Optimize Self-Care Behaviors Blanquita Stuatr Being Active - get regular physical activity, [...] to Optimize Self-Care Behaviors No Blanquita Morales documented as of this encounter Visit Diagnoses Not on filedocumented in this encounter Additional Health Concerns Problem Noted Date Diagnosed Date HbA1C Not In Goal 04/25/2023 Diabetes Self-Management Edu cation Needed to Optimize Self-Care Behaviors 04/25/2023 Assessment Noted Time PHQ-9 Depression Total Score: 8 08/01/19 24 1:11 PM PNEUMATIC DEICER INSPECTOR documented as of this encounter Care Teams Janitorial Cleaner Relationship Specialty [place] [address] [place] [address] PCP - General Family Medicine 05/18/22 Jovany Gonzalez MD [facility] [address] [facility] [address] [place], [place] [address] Orthopedics 02/15/17 Staci Woodward, CONSTRUCTION PROJECT COORDINATOR [facility] [address] [place], [place] [address] Nurse Practitioner Nurse Practitioner Psych/Mental Health 05/10/17 Reanna Smith, RD [facility] [address] [place] [address] Director Of Sales Dietitian, Registered 07/25/19 Roshni Nascimento, ZITA Personal Advocate & Liaison (PAL) Family Medicine 08/18/20 Kiet Swain MD [address] [place] [id number] Referring Physician Psychiatry 09/19/20 Winsome Pike APRN MANAGER REGIONAL SALES [address] [place] [address] [id number] Nurse Practitioner Psychiatry 09/19/20 Tori Hines, [facility] [place], [place] [address] Dialysis Patient Care Technician Dialysis Patient Care Technician - Clinical 09/19/20 Miranda Queen [facility] [address] [place] [address] Pharmacist Pharmacist 11/12/20 Marisel Armando MD [address] [place], [place] [id number] Gastroenterology 02/05/21 Wesley Barrett MD [address] [facility] [address] [place] [address] Assigned Neuroscience Provider 05/10/21 [place] [address] [place] [address] Assigned PCP 05/15/22 Katiana Read MD [address] [place] [address] [place], [place] [address] Assigned Endocrinology Provider 06/19/22 [place] [address] [place] [address] Nurse Practitioner Nurse Practitioner 10/18/22 Elham Stack, [facility] [address] [place] [address] Pharmacist Pharmacist 10/19/22 Aubrey Jones MD [address] [place] [address] Cardiovascular Disease 03/28/23 Blanquita Morales Director Of Sales Diabetes Education 04/25/23 Aubrey Jones MD [address] [place] [address] Assigned Heart and Vascular Provider 05/07/23 documented as of this encounter
--- OUTSIDE RECORDS SUMMARY | 2023-08-03 09:54 | XMS_ITS | Encounter Summary ---
Author Name Unknown Organization [place] Address [address] [place] [address]. [place] [address] Care Team Providers Care Water Regulator And Valve Repairer Name Role Phone Jovany Gonzalez MD Unavailable CrissyStaci jeong RETINA SUBSPECIALIST Unavailable [phone] Unavailable [phone] Roshni Nascimento RN Unavailable Unavailable Kiet Swain MD Unavailable Winsome Pike APRN MARBLE INSTALLATION HELPER Unavailable [phone] Tori Hines [facility] Unavailable Miranda Queen [facility] Unavailable Unavailable Marisel Armando MD Unavailable Wesley Barrett MD Unavailable [phone] Dyan Fuentes MD Primary Care Provider [phone] Dyan Fuentes MD Unavailable [phone] Katiana Read MD Unavailable [phone] Mary Winkler RETINA SUBSPECIALIST Unavailable + [phone] Elham Stack [facility] Unavailable [phone] Aubrey Jones MD Unavailable [phone] Blanquita Morales Unavailable Unavailable Aubrey Jones MD Unavailable [phone] Reason for Visit * Reason Onset Date Comments Medication Request 08/02/2023 Encounter Details Date Type Department Care Team (Late st Contact Info) Description 08/02/[address] [facility] Pain [facility] [place] [address] [facility] [address] [place], [place] [address] [place] [address] [place] [id number] Medication Request Social History Tobacco Use Types Packs/Day Years [...] week 06/20/2023 How often do you attend faith or sabianist serv ices? Never 06/20/2023 Do you belong to any clubs o r organizations such as faith groups, unions, fraternal or athletic groups, or [...] Answer Date Recorded PHQ-2 Score 2 08/01/2023 [facility] of Occupat ional Health - Occupational Stress [...] AM CDT documented as of this encounter Miscellaneous Notes * Telephone Encounter - Janine Argueta RN - 08/02/2023 1:24 PM LINUX SYSTEMS ADMINISTRATOR Order reprinted and sent via mail to pt's address Janine Raymundo RN Transportation Officer [facility] X SYSTEMS ADMINISTRATOR * Telephone Encounter - Berna Michael - 08/02/2023 1:05 PM CST [facility] Phone Message May a detailed message be left on voicemail: yes Reason for Call: Other: pt called in and wanted to request that Mary Winkler re mail her prescription for her TENS unit. She stated that she left it on her island at home after her last appt and went out of town. While out of town her cleaning lady came and accidentally threw it away. So patient is asking for a new one mailed out to her. Action Taken: Message routed to: Other: Pain Travel Screening: Not Applicable X SYSTEMS ADMINISTRATOR documented in this encounter Plan of Treatment Upcoming Encounters Date Type Department Care Team (Late st Contact Info) Description 08/18/2023 3:00 PM LINUX SYSTEMS ADMINISTRATOR Office Visit [facility] [address] [place] [address] Katiana Read MD [address] [place] [address] [place] [address] documented as of this encounter Goals Goal Patient Goal Type Associated Problems Recent Progress Patient-Stated? Author Establish Regular Follow-Ups with PCP Care Plan HbA1C Not In Goal No Blanquita Morales Get HbA1C Level in Goal Care Plan HbA1C Not In Goal Blanquita Stuart Understand diabetes pathophysiology and disease progression Care [...] to Optimize Self-Care Behaviors No Blanquita Morales Monitoring - monitor glucose and ketones as [...] Optimize Self-Care Behaviors No Blanquita Morales Healthy Coping - use available resources to cope with the challenges of managing diabetes Care Plan Diabetes Self-Managemen t Education Needed to Optimize Self-Care Behaviors No Blanquita Moraels documented as of this encounter Visit Diagnoses Not on filedocumented in this encounter Additional Health Concerns Problem Noted Date Diagnosed Date HbA1C Not In Goal 04/25/2023 Diabetes Self-Management Edu cation Needed to Optimize Self-Care Behaviors 04/25/2023 Assessment Noted Time PHQ-9 Depression Total Score: 8 08/01/19 24 1:11 PM LINUX SYSTEMS ADMINISTRATOR documented as of this encounter Care Teams Water Regulator And Valve Repairer Relationship Specialty [place] [address] [place] [address] PCP - General Family Medicine 05/18/22 Jovany Gonzalez MD [facility] [address] [facility] [address] [place], [place] [address] Orthopedics 02/15/17 Staci Woodward NP [place] [address] [place], [place] [id number] Nurse Practitioner Nurse Practitioner Psych/Mental Health 05/10/17 Reanna Smith, [facility] [address] [place] [address] Air Pumper Dietitian, Registered 07/25/19 Roshni Nascimento, RN Personal Advocate & Liaison (PAL) Family Medicine 08/18/20 Kiet Swain MD [address] [place] [address] [address] [place] [address] Referring Physician Psychiatry 09/19/20 Winsome Pike APRN MARBLE INSTALLATION HELPER [address] [place] [address]244 Nurse Practitioner Psychiatry 09/19/20 Tori Hines, [facility] [address] [place] [address] [phone] Retail Associate Manager Bilingual Retail Associate Manager Bilingual - Clinical 09/19/20 Miranda Queen [facility] [address] [place] [address] Pharmacist Pharmacist 11/12/20 Marisel Armando MD [address] [place], [place] [address] Gastroenterology 02/05/21 Wesley Barrett MD [address] [facility] [address] [place], [place] [address] Assigned Neuroscience Provider 05/10/21 [place] [address] [place] [address] Assigned PCP 05/15/22 Katiana Read MD [address] [place] [address] [place] [address] Assigned Endocrinology Provider 06/19/22 [place] [address] [address] [place] [address] Nurse Practitioner Nurse Practitioner 10/18/22 Elham Stack, [facility] [address] [place] [address] Pharmacist Pharmacist 10/19/22 Aubrey Jones MD [address] [place] [address] Cardiovascular Disease 03/28/23 Blanquita Morales Air Pumper Diabetes Education 04/25/23 Aubrey Jones MD [address] [place] [address] Assigned Heart and Vascular Provider 05/07/23 documented as of this encounter
--- OUTSIDE RECORDS SUMMARY | 2023-08-03 09:54 | XMS_ITS | Referral Summary ---
Author Name Unknown Organization [facility] Address [address] [place] [address]. [place] [address] Care Team Providers Care Tsa Screener Name Role Phone Jovany Gonzalez MD Unavailable CrissyStaci jeong NP Unavailable [phone] Unavailable [phone] Roshni Nascimento RN Unavailable Unavailable Kiet Swain MD Unavailable [phone] Winsome Pike APRN [address] Unavailable [phone] Tori Hines [facility] Unavailable Miranda Queen [facility] Unavailable Unavailable Marisel Armando MD Unavailable Wesley Barrett MD Unavailable [phone] Dyan Fuentes MD Primary Care Provider [phone] Dyan Fuentes MD Unavailable [phone] Katiana Read MD Unavailable [phone] Mary Del Cid COPY HOLDER Unavailable + [phone] Elham Stack [facility] Unavailable [phone] Aubrey Jones MD Unavailable [phone] Blanquita Morales Unavailable Unavailable Aubrey Jones MD Unavailable [phone] Encounters Date Type Department Care Team Description 08/02/2023 Telephone [facility] [place] [address] [place] [address] [address] [place] [address] Mary Del Cid NP Medication Request 08/01/2023 Travel 08/01/2023 2:00 PM RESERVATIONIST Office Visit [facility] [address] [place] [phone] Haydee Moody NP Preop general physical exam (Primary Dx); Need for shingles vaccine; Benign essential hypertension; Chronic obstructive pulmonary disease, unspecified COPD type (H); Morbid obesity (H); Hypertriglyceridemia; Hypothyroidism, unspecified type; Chronic kidney disease, stage 3a (H); Uncomplicated opioid dependence (H); Type 1 diabetes mellitus with other specified complication (H) 07/26/2023 Telephone [facility] [address] [place] [phone] Dyan Fuentes MD Panel Management 07/25/2023 MyC Medical Advice [facility] [address] [place] [phone] Roshni Nascimento RN 07/21/2023 Refill [facility] [address] [facility] [address] [place] [phone] Katiana Read MD Medication Refill 07/19/2023 3:00 PM RESERVATIONIST Virtual Visit [facility] [address] [place] [address] Mary Del Cid NP Chronic pain syndrome (Primary Dx); S/P lumbar laminectomy; S/P cervical spinal fusion; Muscle spasm 07/18/2023 Telephone [facility] [address] [facility] [address] [place] [address] Mary Del Cid NP Opioid Refill (buprenorphine HCl-naloxone HCl (SUBOXONE) 4-1 MG per film ) 07/14/2023 Orders Only [facility] [address] [place] [address] [place] [phone] Lenka [place] PA-C Postprocedural hypothyroidism 07/13/2023 Telephone [facility] [address] [place] [phone] Katiana Read MD 07/12/2023 MyC Medical Advice [facility] [address] [facility] 1st [place] [address] Chidi Zabala 07/12/2023 MyC Medical Advice [facility] [address] [place] [address] Rachelle Benites CMA MyChart Communication 07/12/2023 Travel 07/12/2023 10:30 AM RESERVATIONIST Office Visit [facility] [address] [place] [phone] Lenka [place] PA-C Type 2 diabetes mellitus without complication, without long-term current use of insulin (H) (Primary Dx); Chronic kidney disease, stage 3a (H); Postablative hypothyroidism; Type 2 diabetes mellitus without complication, with long-term current use of insulin (H); Type 1 diabetes mellitus with diabetic neuropathy (H) 07/11/2023 Travel 06/23/2023 Travel 06/23/2023 2:30 PM RESERVATIONIST Office Visit [address] [phone] Dyan Fuentes MD Routine general medical examination at a health care facility (Primary Dx); Medicare annual wellness visit, subsequent; Need for vaccination against respiratory syncytial virus; Benign essential hypertension; Chronic obstructive pulmonary disease, unspecified COPD type (H); Type 2 diabetes mellitus without complication, with long-term current use of insulin (H); Other chronic pain; Postablative hypothyroidism; Hyperlipidemia LDL goal <100 06/20/2023 Travel 06/20/2023 Refill [facility] [place] [address] [facility] [address] [place] [address] Mary Del Cid NP Opioid Refill (buprenorphine HCl-naloxone HCl (SUBOXONE) 4-1 MG per film) 05/31/2023 Travel 05/31/2023 4:00 PM RESERVATIONIST Therapy Visit [address] [address] Dyan Villar, PT Chronic pain syndrome (Primary Dx) 05/27/[address] [address] Dyan Fuentes MD Progress 05/17/2023 Refill [facility] [address] [address] Mary Del Cid NP Opioid Refill (buprenorphine HCl-naloxone HCl (SUBOXONE) 4-1 MG per film) 05/12/2023 Travel 05/12/2023 2:30 PM CDT Office Visit [address] [address] Dyan Fuentes MD Chronic obstructive pulmonary disease, unspecified COPD type (H) (Primary Dx); Tobacco use disorder; Benign essential hypertension; Type 2 diabetes mellitus without complication, with long-term current use of insulin (H); Vitamin B12 deficiency; Hypertriglyceridemia; Gastroesophageal reflux disease without esophagitis; Hyperlipidemia LDL goal <100; Abdominal pain, generalized; Elevated d-dimer 05/11/2023 Travel 05/11/2023 3:40 PM CDT Therapy Visit [address] [address] Mary Del Cid, Dyan Yee, MIGDALIA Chronic pain syndrome (Primary Dx) 05/03/[address] [address] Dyan Fuentes MD 05/03/2023 Travel 05/03/2023 10:30 AM CDT Office Visit [facility] [address] [facility] [address] [place] [address] Aubrey Jones MD Abnormal electrocardiogram from Last 3 Months Allergies Active Allergy Reactions Criticality Noted Date [...] 1 06/14/20 22 Active Continuous Blood Gluc Orthotic Technician (DEXCOM G6 REMOTE CODERS) DEVIIndications:T ype 2 diabetes mellitus without complication, [...] 4 times daily 0 Active nystatin (MYCOSTATIN) 169517 UNIT/GM external ointment Apply topically 2 times [...] nasal sprayIndications: At risk for substance overdose Wheeler 1 spray (4 mg) into one nostril [...] Reviewed chart for advance care plan. Kaila Pineda Robchristi Hernandez has no plan or code status [...] S/P cardiac cath 05/11/2021 Overview: reportedly negative Immunizations Name Administration Dates Next Due COVID-19 12+ () (Pfizer) 05/12/2023 COVID-19 Vaccine (Valeri) 09/22/2020 Flu, Unspecified 08/22/2006 Hepatitis B, Adult [...] 12/24/2009 Zoster recombinant adjuvante d (SHINGRIX) 05/28/2020 Social History Tobacco Use Types Packs/Day Years [...] How often do you attend adventist or scientology serv ices? Never 06/20/2023 Do you belong [...] Answer Date Recorded PHQ-2 Score 2 08/01/2023 [facility] - Occupational Stress Questionnaire Answer Date Recorded [...] Comments Blood Pressure 119/82 08/01/2023 1:22 PM RESERVATIONIST Pulse 70 08/01/2023 1:22 PM RESERVATIONIST Temperature 36.6 ??C (97.8 ??F) 08/01/2023 1:22 PM CS T Respiratory Rate 20 08/01/2023 1:22 PM RESERVATIONIST Oxygen Saturation 96% 08/01/2023 1:22 PM RESERVATIONIST Inhaled Oxygen Concentration - - Weight 115.7 kg (255 lb) 08/01/2023 1:22 PM RESERVATIONIST Height 172.7 cm (5' 8) 08/01/2023 1:22 PM RESERVATIONIST Body Mass Index 38.77 08/01/2023 1:22 PM RESERVATIONIST Plan of Treatment Upcoming Encounters Date Type Department Care Team (Late st Contact Info) Description 08/18/2023 3:00 PM RESERVATIONIST Office Visit [facility] [address] [facility] [address] [place] [address] Katiana Read MD [address] [place] [address] Goals Goal Patient Goal Type Associated Problems Recent Progress Patient-Stated? Author Establish Regular Follow-Ups with PCP Care Plan HbA1C Not In Goal Blanquita Stuart Get HbA1C Level in Goal Care Plan HbA1C Not In Goal Blanquita Stuart Understand diabetes pathophysiology and disease progression Care Plan Diabetes Self-Managemen t Education Needed to Optimize Self-Care Behaviors Balnquita Stuart Healthy Eating - follow a healthy [...] Blanquita Morales Medical Devices Implanted Type Area Swimming Professor Device Identifier Shelf Expiration Date Model / Serial / Lot Bone Matrix 5cc Bio4 [id number] - [id number] Implanted:Qty: 1 on 12/13/2017 Bone/Tissu e/Biologic Right: Ankle [employer] 01/18/2019 [id number] / [id number] / [id number] [id number] Bone Putty Dbx 01ml [id number] - [id number] Implanted:Qty: 1 on 05/18/2021 by Wesley Barrett MD at [facility] Bone/Tissu e/Biologic N/A: Spine Cervical [employer] 11/19/2022 [id number] / / [id number] [place] Iconix 2.3mm With 2.0mm Braid Implanted:Qty: 1 on 12/13/2017 Metallic Hardware/A nchor Right: Ankle [employer] 07/02/2019 [id number] / / [id number] 6.5mm Low Profile Hex Scr 20mm Implanted:Qty: 1 on 08/06/2020 by Lencho [place] MD at [facility] Metallic Hardware/A nchor Right: Hip [employer] 08/18/2024 [id number] / / [id number] 4.[address] Screw Implanted:Qty: 1 on 05/18/2021 by Wesley Barrett MD at [facility] Metallic Hardware/A nchor N/A: Spine Cervical [employer] [id number] / / [id number] 05NOV 2020 Imp Head Femoral Strk Biolox Delta Ceramic V40 36mm Implanted:Qty: 1 on 08/06/2020 by Lencho [place] MD at [facility] Total Joint Component/ Insert Right: Hip [employer] 04/10/2025 [id number] 6 / / [id number] Power Port Trident Ii Tritanium, Clusterhole Acetabular Shell, Janeth 50mm Implanted:Qty: 1 on 08/06/2020 by Lencho [place] MD at [facility] Right: Hip [employer] 03/15/2023 702-04-50 D / / [id number] Endoskeleton Tc Interbody System Medium 16mmx 14mm X 7mm- 6 Degree Implanted:Qty: 1 on 05/18/2021 by Wesley Barrett MD at [facility] N/A: Spine Cervical [employer] 02/05/2026 [id number] -[id number] / / [id number] Explanted Type Area Swimming Professor Device Identifier Shelf Expiration Date Model / Serial / Lot 3.[address] Screw Explanted:Qty : 1 on 05/18/2021 by Wesley Barrett MD at [facility] Metallic Hardware/Anc hor N/A: Spine Cervical [employer] [id number] / / [id number] 05NOV 2020 Port-2/ 8 Implanted:Qty : 1 on 08/31/2017 by Ace Valles MD Explanted:Qty : 1 on 08/12/2020 by Ace Valles MD Port Right: Vein BARD 04/09/2018 REF [id number] / / [id number] Procedures Procedure Name Priority Date/Time Associated Diagnosis Comments T4 FREE Routine 07/12/2023 11:07 AM RESERVATIONIST Postablative hypothyroidism TSH Routine 07/12/2023 11:07 AM RESERVATIONIST Postablative hypothyroidism LIPID REFLEX TO DIRECT LDL PANEL Routine 06/23/2023 3:28 PM RESERVATIONIST Hyperlipidemia LDL goal <100 ALBUMIN RANDOM URINE QUANTITATIVE Routine 06/23/2023 3:28 PM RESERVATIONIST Type 2 diabetes mellitus without complication, with long-term current use of insulin (H) URINE DRUG SCREEN CLINIC Routine 06/23/2023 3:28 PM RESERVATIONIST Other chronic pain HEMOGLOBIN A1C Routine 06/23/2023 3:28 PM RESERVATIONIST Type 2 diabetes mellitus without complication, with long-term current use of insulin (H) BASIC METABOLIC PANEL Routine 06/23/2023 3:28 PM RESERVATIONIST Benign essential hypertension D DIMER QUANTITATIVE Routine 05/12/2023 2:50 PM CDT Elevated d-dimer EKG 12-LEAD COMPLETE W/READ - CLINICS Routine 05/03/2023 Abnormal electrocardiogram from Last 3 Months Results * (ABNORMAL) TSH (07/12/2023 11:07 AM RESERVATIONIST) Pathologist [facility] TSH 74.10(H) 0.30 - 4.20 uIU/mL 07/12/2023 10:35 PM RESERVATIONIST [facility] Blood BLOOD SPECIMEN / Unknown Venipuncture / Unknown 07/12/2023 11:07 AM RESERVATIONIST 07/12/2023 11:07 AM RESERVATIONIST Lenka [place] PA-C LAB - BLOOD ORDERABL ES [facility] [place] [facility] [address] [facility] [address] [facility], [address] [place] [address], [facility] [phone] * (ABNORMAL) T4, free (07/12/2023 11:07 AM RESERVATIONIST) Free T4 0.53(L) 0.90 - 1.70 ng/dL 07/12/2023 10:35 PM RESERVATIONIST [facility] Blood BLOOD SPECIMEN / Unknown Venipuncture / Unknown 07/12/2023 11:07 AM RESERVATIONIST 07/12/2023 11:07 AM RESERVATIONIST Lenka [place] PA-C LAB - BLOOD ORDERABL ES [facility] [place] [facility] [address] [facility] [address], [address] [place] [address], [facility] [phone] * (ABNORMAL) Drug Abuse Screen Panel 13, Urine (Pain Care Map) - lab collect (06/23/2023 3:28 PM RESERVATIONIST) Cannabinoids (97-fwe-9-carboxy -9-THC) Detected(A ) Not Detected, Indeterminate 06/24/2023 2:08 PM RESERVATIONIST [facility] Comment: Cutoff for a positive cannabinoid is greater than 50 ng/ml. This is an unconfirmed screening result to be used for medical purposes only. Phencyclidine Not Detected Not Detected, Indeterminate 06/24/2023 2:08 PM RESERVATIONIST [facility] Comment:Cutoff for a negativ e PCP is 25 ng/mL or less. Cocaine (Benzoylecgonine) Not Detected Not Detected, Indeterminate 06/24/2023 2:08 PM RESERVATIONIST [facility] Comment:Cutoff for a negativ e cocaine is 150 ng/ml or less. Methamphetamine (d-Methamphetamin e) Not Detected Not Detected, Indeterminate 06/24/2023 2:08 PM RESERVATIONIST [facility] Comment:Cutoff for a negativ e methamphetamine is 500 ng/ml or less. Opiates (Morphine) Not Detected Not Detected, Indeterminate 06/24/2023 2:08 PM RESERVATIONIST [facility] Comment:Cutoff for a negativ e opiate is 100 ng/ml or less. Amphetamine (d-Amphetamine) Not Detected Not Detected, Indeterminate 06/24/2023 2:08 PM RESERVATIONIST [facility] Comment:Cutoff for a negativ e amphetamine is 500 ng/mL or less. Benzodiazepines (Nordiazepam) Not Detected Not Detected, Indeterminate 06/24/2023 2:08 PM RESERVATIONIST [facility] Comment:Cutoff for a negativ e benzodiazepine is 150 ng/ml or less. Tricyclic Antidepressants (Desipramine) Not Detected Not Detected, Indeterminate 06/24/2023 2:08 PM RESERVATIONIST [facility] Comment:Cutoff for a negativ e tricyclic antidepressant is 300 ng/ml or less. Methadone Not Detected Not Detected, Indeterminate 06/24/2023 2:08 PM RESERVATIONIST [facility] Comment:Cutoff for a negativ e methadone is 200 ng/ml or less. Barbiturates (Butalbital) Not Detected Not Detected, Indeterminate 06/24/2023 2:08 PM RESERVATIONIST [facility] Comment:Cutoff for a negativ e barbituate is 200 ng/ml or less. Oxycodone Not Detected Not Detected, Indeterminate 06/24/2023 2:08 PM RESERVATIONIST [facility] Comment:Cutoff for a negativ e oxycodone is 100 ng/mL or less. Buprenorphine Detected(A ) Not Detected, Indeterminate 06/24/2023 2:08 PM RESERVATIONIST [facility] Comment: Cutoff for a positive buprenorphine is greater than 10 ng/ml. This is an unconfirmed screening result to be used for medical purposes only. Urine MID-STREAM URINE SPECIMEN / Unknown Non-blood Collection / Unknown 06/23/2023 3:28 PM RESERVATIONIST 06/23/2023 3:34 PM RESERVATIONIST Dyan Fuentes MD LAB - URINE ORDER LENA [facility] [address] Lab (no room number, 1st floor of clinic) [place] [address], [facility] [phone] * Albumin Random Urine Quantitative with Creat Ratio (06/23/2023 3:28 PM RESERVATIONIST) Creatinine Urine mg/dL 42.4 mg/dL 06/24/2023 6:21 PM RESERVATIONIST [facility] Comment:The reference ranges have not been established in urine creatinine. The results should be integrated into the clinical context for interpretation. Albumin Urine mg/L <12.0 mg/L 2022 6:21 PM RESERVATIONIST [facility] Comment:The reference ranges have not been established in urine albumin. The results should be integrated into the clinical context for interpretation. Albumin Urine mg/g Cr 06/24/2023 6:21 PM RESERVATIONIST [facility] Comment: Unable to calculate, urine [...] control, and institution of therapy with an ywotnqpeejg-scrknoddbd-vrnjdf (MACK) inhibitor (if the patient can tolerate it). ?? Urine MID-STREAM URINE SPECIMEN / Unknown Non-blood Collection / Unknown 06/23/2023 3:28 PM RESERVATIONIST 06/23/2023 3:34 PM RESERVATIONIST Dyan Fuentes MD LAB - URINE ORDER LENA [facility] [place] [facility] [address] [facility], [address] [address], [facility] [phone] * (ABNORMAL) Lipid panel reflex to direct LDL Fasting (06/23/2023 3:28 PM RESERVATIONIST) Cholesterol 244(H) <200 mg/dL 06/24/2023 6:12 PM RESERVATIONIST [facility] Triglycerides 168(H) <150 mg/dL 06/24/2023 6:12 PM RESERVATIONIST [facility] Direct Measure HDL 75 >=50 mg/dL 06/24/2023 6:12 PM RESERVATIONIST [facility] LDL Cholesterol Calculated 135(H) <=100 mg/dL 06/24/2023 6:12 PM RESERVATIONIST [facility] Non HDL Cholesterol 169(H) <130 mg/dL 06/24/2023 6:12 PM RESERVATIONIST [facility] Patient Fasting > 8hrs? Yes 06/24/2023 6:12 PM RESERVATIONIST [facility] Blood BLOOD SPECIMEN / Unknown Venipuncture / Unknown 06/23/2023 3:28 PM RESERVATIONIST 06/23/2023 3:34 PM RESERVATIONIST Narrative [facility] - 06/24/2023 6:12 PM RESERVATIONIST Cholesterol Desirable: ??<200 mg/dL Triglycerides Normal: ??Less [...] MD LAB - BLOOD ORDER LENA LABORATORY [facility] Lab [address] [facility], [address] [address] [phone] * (ABNORMAL) Hemoglobin A1c (06/23/2023 3:28 PM RESERVATIONIST) Hemoglobin A1C 8.9(H) 0.0 - 5.6 % 06/23/2023 3:49 PM RESERVATIONIST LABORATORY Blood BLOOD SPECIMEN / Unknown Venipuncture / Unknown 06/23/2023 3:28 PM RESERVATIONIST 06/23/2023 3:34 PM RESERVATIONIST Narrative LABORATORY - 06/23/2023 3:49 PM RESERVATIONIST Results confirmed by repeat test. Dyan Fuentes MD LAB - BLOOD ORDER LENA LABORATORY [facility] [address] Lab (no room number, 1st floor of clinic) [place] [address], [facility] [phone] * (ABNORMAL) BASIC METABOLIC PANEL (06/23/2023 3:28 PM RESERVATIONIST) Sodium 139 135 - 145 mmol/L 06/24/2023 6:12 PM RESERVATIONIST [facility] Comment:Reference intervals for this test were updated on 04/05/2023 to more accurately reflect our healthy population. There may be differences in the flagging of prior results with similar values performed with this method. Interpretation of those prior results can be made in the context of the updated reference intervals. Potassium 4.5 3.4 - 5.3 mmol/L 06/24/2023 6:12 PM RESERVATIONIST [facility] Chloride 101 98 - 107 mmol/L 06/24/2023 6:12 PM RESERVATIONIST [facility] Carbon Dioxide (CO2) 27 22 - 29 mmol/L 06/24/2023 6:12 PM RESERVATIONIST [facility] Anion Gap 11 7 - 15 mmol/L 06/24/2023 6:12 PM RESERVATIONIST [facility] Urea Nitrogen 14.3 8.0 - 23.0 mg/dL 06/24/2023 6:12 PM RESERVATIONIST [facility] Creatinine 1.28(H) 0.51 - 0.95 mg/dL 06/24/2023 6:12 PM RESERVATIONIST [facility] GFR Estimate 47(L) >60 mL/min/1. 73m2 06/24/2023 6:12 PM RESERVATIONIST [facility] Calcium 9.9 8.8 - 10.2 mg/dL 06/24/2023 6:12 PM RESERVATIONIST [facility] Glucose 156(H) 70 - 99 mg/dL 06/24/2023 6:12 PM RESERVATIONIST [facility] Blood BLOOD SPECIMEN / Unknown Venipuncture / Unknown 06/23/2023 3:28 PM RESERVATIONIST 06/23/2023 3:34 PM RESERVATIONIST Dyan Fuentes MD LAB - BLOOD ORDER LENA [facility] [address] [facility], [address] [place] [address], [place] [phone] * (ABNORMAL) D dimer, quantitative (05/12/2023 2:50 [...] out pulmonary embolism: The ADJUST-PE Study. COLE 2014;311:5787-1215.; HJ Parker et al. Diagnostic accuracy of conventional or age adjusted D-dimer cutoff values in older patients with suspected venous thromboembolism. Systemic review and meta-analysis. BMJ 2013:346:f2492. Dyan Fuentes MD LAB - BLOOD ORDER LENA [facility] [address] Lab (no room number, 1st floor of clinic) [place] [address], [facility] [phone] * EKG 12-lead complete w/read - Clinics (performed today) (05/03/2023) Aubrey Jones MD ECG ORDERABLES from Last 3 Months Additional Health Concerns Problem Noted Date Diagnosed Date HbA1C Not In Goal 04/25/2023 Diabetes Self-Management Edu cation Needed to Optimize Self-Care Behaviors 04/25/2023 Advance Directives For more information, please contact: [phone] Latest Code Status on File Code Status [...] with patient/ legal decision maker Care Teams Tsa Screener Relationship Specialty [place] [address] [place] [address] PCP - General Family Medicine 05/18/22 Jovany Gonzalez MD [facility] [address] [facility] [address] [place], [place] [address] Orthopedics 02/15/17 Staci Woodward NP [place] [address] [place], [place] [address] Nurse Practitioner Nurse Practitioner Psych/Mental Health 05/10/17 Reanna Smith, [facility] [address] [place], [place] [address] Cone Operator Dietitian, Registered 07/25/19 Roshni Nascimento RN Personal Advocate & Liaison (PAL) Family Medicine 08/18/20 Kiet Swain MD [address] [facility] [address] [place], [place] [address] Referring Physician Psychiatry 09/19/[address]ome Pike [address]N [address] [place] [address] Nurse Practitioner Psychiatry 09/19/20 Tori Hines, [facility] [address] [place] [address] Teletypewriter Installer Teletypewriter Installer - Clinical 09/19/20 Miranda Queen [facility] [address] [place] [address] Pharmacist Pharmacist 11/12/20 Marisel Armando MD [address] [place], [place] [address] Gastroenterology 02/05/21 Wesley Barrett MD [address] [facility] [address] [place], [place] [address] Assigned Neuroscience Provider 05/10/21 [place] [address] [place] [address] Assigned PCP 05/15/22 Katiana Read MD [address] [address] Assigned Endocrinology Provider 06/19/22 Mary Del Cid, RAFA[facility] [address] [place] [address] Nurse Practitioner Nurse Practitioner 10/18/22 Elham Stack [facility] [address] [place] [address] Pharmacist Pharmacist 10/19/22 Aubrey Jones MD [address] [place] [address] Cardiovascular Disease 03/28/23 Blanquita Morales Cone Operator Diabetes Education 04/25/23 Aubrey Jones MD [address] [place] [address] Assigned Heart and Vascular Provider 05/07/23
--- OUTSIDE RECORDS SUMMARY | 2023-08-03 09:55 | XMS_ITS | Encounter Summary ---
Author Name Unknown Organization [place] Address [address] [place] [address]. [place] [address] Care Team Providers Care Dealer Development Manager Name Role Phone Jovany Gonzalez MD Unavailable CrissyStaci jeong PANEL BUILDER Unavailable [phone] Unavailable [phone] Roshni Nascimento RN Unavailable Unavailable Kiet Swain MD Unavailable [phone] Winsome Pike APRN BAND MACHINE OPERATOR Unavailable [phone] Tori Hines [facility] Unavailable Miranda Queen [facility] Unavailable Unavailable Marisel Armando MD Unavailable Wesley Barrett MD Unavailable [phone] Dyan Fuentes MD Primary Care Provider [phone] Dyan Fuentes MD Unavailable [phone] Katiana Read MD Unavailable [phone] Mary Del Cid PANEL BUILDER Unavailable + [phone] Elham Stack [facility] Unavailable [phone] Aubrey Jones MD Unavailable [phone] Blanquita Morales Unavailable Unavailable Aubrey Jones MD Unavailable [phone] Encounter Details Date Type Department Care Team (Late st Contact Info) Description 07/25/2023 MyC Medical Advice [facility] [id number] [place] [id number] Roshni Nascimento, RN Social History Tobacco Use Types Packs/Day Years Used Date Smoking Tobacco: Former Cigarettes 1 50 Q uit: 05/19/2023 Smokeless Tobacco: Never Alcohol Use Standard Drinks/Week [...] week 06/20/2023 How often do you attend uatsdin or rastafari serv ices? Never 06/20/2023 Do you belong to any clubs o r organizations such as uatsdin groups, unions, fraternal or athletic groups, or [...] 06/20/2023 PHQ-2 Answer Date Recorded PHQ-2 Score 1 06/23/2023 [facility] of Occupat ional Health - Occupational Stress [...] you got money to buy more? No 06/20/2023 Within the past 12 months, d id the food you bought just not last and you didn? t have money to get more? No 06/20/2023 Housing Stability Answer Date Recorded Do you have housing? Yes 06/20/2023 Are you worried about losing your housing? No 06/20/2023 Financial Resource Strain Answer Date R ecorded Within the past 12 months, h ave you or your family members you live with been unable to get utilities (heat, electricity) when it was really needed? No 06/20/2023 Transportation Needs Answer Date Record ed Within the past 12 months, h as lack of transportation kept you from medical appointments, getting your medicines, non-medical meetings or appointments, work, or from getting things that you need? No 06/20/2023 Interpersonal Safety Answer Date Record ed Do [...] st Contact Info) Description 08/18/2023 3:00 PM SUPERVISOR FILES Office Visit [place] [address] [place] [address] Katiana Read MD [address] [place] [address] documented as of this encounter Goals Goal [...] Education Needed to Optimize Self-Care Behaviors Blanquita tSuart Reducing Risks - know how to prevent [...] Assessment Noted Time PHQ-9 Depression Total Score: 7 06/23/20 23 1:54 PM SUPERVISOR FILES documented as of this encounter Care Teams Dealer Development Manager Relationship Specialty [place] [address] [place] [address] PCP - General Family Medicine 05/18/22 Jovany Gonzalez MD [facility] [address] [facility] [address] [place], [place] [id number] Orthopedics 02/15/17 Staci Woodward, PANEL BUILDER [place] [address] [place], [place] [id number] Nurse Practitioner Nurse Practitioner Psych/Mental Health 05/10/17 Reanna Smith, RD [facility] [address] [place], [place] [address] Exposure Machine Operator Dietitian, Registered 07/25/19 Roshni Nascimento, RN Personal Advocate & Liaison (PAL) Family Medicine 08/18/20 Kiet Swain MD [address] [place] [id number] Referring Physician Psychiatry 09/19/20 Winsome Pike APRN BAND MACHINE OPERATOR [facility] [address] [address] Nurse Practitioner Psychiatry 09/19/20 Tori Hines, [facility] [address] [place] [address] Evp And Chief Operating Officer Evp And Chief Operating Officer - Clinical 09/19/20 Miranda Queen [facility] [address] [place] [address] Pharmacist Pharmacist 11/12/20 Marisel Armando MD [address] [place] [address] Gastroenterology 02/05/21 Wesley Barrett MD [address] [facility] [address] [place] [address] Assigned Neuroscience Provider 05/10/21 [place] [address] [place] [address] Assigned PCP 05/15/22 Katiana Read MD [address] [place] [address] Assigned Endocrinology Provider 06/19/22 [place] [address] [place] [address] Nurse Practitioner Nurse Practitioner 10/18/22 Elham Stack, [facility] [address] [place] [address] Pharmacist Pharmacist 10/19/22 Aubrey Jones MD [address] [place] [address] Cardiovascular Disease 03/28/23 Blanquita Morales Exposure Machine Operator Diabetes Education 04/25/23 Aubrey Jones MD [address] [place] [address] Assigned Heart and Vascular Provider 05/07/23 documented as of this encounter
--- OUTSIDE RECORDS SUMMARY | 2023-08-03 09:55 | XMS_ITS | Encounter Summary ---
Author Name Unknown Organization [facility] Address [address] [place] [address]. [place] [address] Care Team Providers Care Truck Guard Name Role Phone Jovany Gonzalez MD Unavailable CrissyStaci jeong FREIGHT AGENT Unavailable [phone] Unavailable [phone] Roshni Nascimento RN Unavailable Unavailable Kiet Swain MD Unavailable [phone] Winsome Pike APRN DIAMOND CLEANER Unavailable [phone] Tori Hines [facility] Unavailable Miranda Queen [facility] Unavailable Unavailable Marisel Armando MD Unavailable Wesley Barrett MD Unavailable [phone] Dyan Fuentes MD Primary Care Provider [phone] Dyan Fuentes MD Unavailable [phone] Katiana Read MD Unavailable [phone] Mary Del Cid FREIGHT AGENT Unavailable + [phone] Elham Stack [facility] Unavailable [phone] Aubrey Jones MD Unavailable [phone] Blanquita Morales Unavailable Unavailable Aubrey Jones MD Unavailable [phone] Reason for Visit * Reason Onset Date Comments Opioid Refill 07/18/2023 buprenorphine HC l-naloxone HCl (SUBOXONE) 4-1 MG per film Encounter Details Date Type Department Care Team (Late st Contact Info) Description 07/18/2023 Telephone [facility] [place] [address] [facility] [address] [place] [address] [place] [address] [place] [address] Opioid Refill (buprenorphine HCl-naloxone HCl (SUBOXONE) 4-1 MG per film ) Social History Tobacco Use Types Packs/Day Years [...] week 06/20/2023 How often do you attend yazdanism or advent serv ices? Never 06/20/2023 Do you belong to any clubs o r organizations such as yazdanism groups, unions, fraternal or athletic groups, or [...] Answer Date Recorded PHQ-2 Score 1 06/23/2023 [facility] of Occupat ional Health - Occupational Stress [...] encounter Miscellaneous Notes * Telephone Encounter - Blanquita Perera RN - 07/19/2023 12:54 PM DIRECTOR OF INSTITUTIONAL RESEARCH Closing encounter. Has appt today CTOR OF INSTITUTIONAL RESEARCH * Telephone Encounter - Blanquita Perera RN - 07/18/2023 1:42 PM CST CTOR OF INSTITUTIONAL RESEARCH * Telephone Encounter - Herlinda Benites - 07/18/2023 1:25 PM CST M [facility] Call Center Phone Message May a detailed message be left on voicemail: yes Reason for Call: Medication Refill Request Has the patient contacted the pharmacy for the refill? Yes Name of medication being requested: buprenorphine HCl-naloxone HCl (SUBOXONE) 4-1 MG per film Provider who prescribed the medication: Mary Del Cid NP Pharmacy: [facility] - [address] Date medication is needed: 07/25/2023 Action Taken: Message routed to: Other: [facility] Pain Travel Screening: Not Applicable CTOR OF INSTITUTIONAL RESEARCH documented in this encounter Plan of Treatment Upcoming Encounters Date Type Department Care Team (Late st Contact Info) Description 08/18/2023 3:00 PM DIRECTOR OF INSTITUTIONAL RESEARCH Office Visit [facility] [address] [place] [address] Katiana Read MD [address] [place] [address] documented as of this encounter Goals Goal [...] Total Score: 7 06/23/20 23 1:54 PM DIRECTOR OF INSTITUTIONAL RESEARCH documented as of this encounter Care Teams Truck Guard Relationship Specialty [place] [address] [place] [address] PCP - General Family Medicine 05/18/22 Jovany Gonzalez MD [facility] [address] [facility] [address] [place] [address] Orthopedics 02/15/17 Staci Woodward, FREIGHT AGENT [place] [address] [place], [place] [address] Nurse Practitioner Nurse Practitioner Psych/Mental Health 05/10/17 Reanna Smith, RD [place] [address] [place] [address] Client Support Consultant Dietitian, Registered 07/25/19 Roshni Nascimento, RN Personal Advocate & Liaison (PAL) Family Medicine 08/18/20 Kiet Swain MD [address] [place] [id number] Referring Physician Psychiatry 09/19/20 Winsome Pike APRN DIAMOND CLEANER [address] [place] [id number] Nurse Practitioner Psychiatry 09/19/20 Tori Hines, [facility] [address] [place] [phone] Desktop Publishing Associate Desktop Publishing Associate - Clinical 09/19/20 Miranda Queen [facility] [address] [place] [address] Pharmacist Pharmacist 11/12/20 Marisel Armando MD [address] [place] [address] Gastroenterology 02/05/21 Wesley Barrett MD [address] [place] [address] [address] [place], [place] [address] Assigned Neuroscience Provider 05/10/21 [place] [address] [place] [address] Assigned PCP 05/15/22 Katiana Read MD [address] [place] [address] Assigned Endocrinology Provider 06/19/22 [place] [address] [place] [address] Nurse Practitioner Nurse Practitioner 10/18/22 Elham Stack, [facility] [address] [place] [address] Pharmacist Pharmacist 10/19/22 Aubrey Jones MD [address] [place] [address] Cardiovascular Disease 03/28/23 Blanquita Morales Client Support Consultant Diabetes Education 04/25/23 Aubrey Jones MD [address] [place] [address] Assigned Heart and Vascular Provider 05/07/23 documented as of this encounter
--- OUTSIDE RECORDS SUMMARY | 2023-08-03 09:55 | XMS_ITS | Encounter Summary ---
Author Name Unknown Organization [facility] Address [address] [place] [address]. [place] [address] Care Team Providers Care Family Intervention Specialist Name Role Phone Jovany Gonzalez MD Unavailable CrissyStaci jeong BRIQUETTE MACHINE OPERATOR HELPER Unavailable [phone] Unavailable [phone] Roshni Nascimento RN Unavailable Unavailable Kiet Swain MD Unavailable [phone] Winsome Pike APRN FAMILY PHYSICIAN Unavailable [phone] Tori Hines [facility] Unavailable Miranda Queen [facility] Unavailable Unavailable Marisel Armando MD Unavailable Wesley Barrett MD Unavailable [phone] Dyan Fuentes MD Primary Care Provider [phone] Dyan Fuentes MD Unavailable [phone] Katiana Read MD Unavailable [phone] Mary Del Cid BRIQUETTE MACHINE OPERATOR HELPER Unavailable [phone] Elham Stack [facility] Unavailable [phone] Aubrey Jones MD Unavailable [phone] Blanquita Morales Unavailable Unavailable Aubrey Jones MD Unavailable [phone] Reason for Visit * Reason Comments Pre-Op Exam Surgery 08/03/2023 r ight eye and 08/24/2023 for left eye Encounter Details Date Type Department Care Team (Late st Contact Info) Description 08/01/2023 2:00 PM TECHNICAL SUPPORT ANALYST Office Visit [facility] [address] [place] [phone] [place] [address] [place] [address] Preop general physical exam (Primary Dx); Need for shingles vaccine; Benign essential hypertension; Chronic obstructive pulmonary disease, unspecified COPD type (H); Morbid obesity (H); Hypertriglyceridemia; Hypothyroidism, unspecified type; Chronic kidney disease, stage 3a (H); Uncomplicated opioid dependence (H); Type 1 diabetes mellitus with other specified complication (H) Social History Tobacco Use Types Packs/Day Years [...] week 06/20/2023 How often do you attend catholic or buddhist serv ices? Never 06/20/2023 Do you belong to any clubs o r organizations such as catholic groups, unions, fraternal or athletic groups, or [...] Answer Date Recorded PHQ-2 Score 2 08/01/2023 [facility]ational Stress Questionnaire Answer Date Recorded [...] AM CDT documented as of this encounter Last Filed Vital Signs Vital Sign Reading Time Taken Comments Blood Pressure 119/82 08/01/2023 1:22 PM TECHNICAL SUPPORT ANALYST Pulse 70 08/01/2023 1:22 PM TECHNICAL SUPPORT ANALYST Temperature 36.6 ??C (97.8 ??F) 08/01/2023 1:22 PM CS T Respiratory Rate 20 08/01/2023 1:22 PM TECHNICAL SUPPORT ANALYST Oxygen Saturation 96% 08/01/2023 1:22 PM TECHNICAL SUPPORT ANALYST Inhaled Oxygen Concentration - - Weight 115.7 kg (255 lb) 08/01/2023 1:22 PM TECHNICAL SUPPORT ANALYST Height 172.7 cm (5' 8) 08/01/2023 1:22 PM TECHNICAL SUPPORT ANALYST Body Mass Index 38.77 08/01/2023 1:22 PM TECHNICAL SUPPORT ANALYST documented in this encounter Patient Instructions * Patient Instructions* Johnnie Moody NP - 08/01/2023 2:00 PM TECHNICAL SUPPORT ANALYST Preparing for Your Surgery Getting started A nurse will call you to review your health history and instructions. They will give you an arrivaltime based on your scheduled surgery time. Please be ready to share: Your doctor's clinic name and phone number Your medical, surgical, and anesthesia history A list of allergies and sensitivities A list of medicines, including herbal treatments and tijd-nsc-pewwebs drugs Whether the patient has a legal guardian (ask how to send us the papers in advance) Please tell us if you're --or if there's any chance you might be . Some surgeries may injure a fetus (unborn baby), so they require a test. Surgeries that are safe for a fetus don't always need a test, and you can choose whether to have one. If you have a child who's having surgery, please ask for a copy of Preparing for Your Child's Surgery. Preparing for surgery Within 10 to 30 days of surgery: Have a pre-op exam (sometimes called an H&P, or History and Physical). This can be done at a clinic or pre-operative center. If you're having a , you may not need this exam. Talk to your care team. At your pre-op exam, talk to your care team about all medicines you take. If you need to stop any medicines before surgery, ask when to start taking them again. We do this for your safety. Many medicines can make you bleed too much during surgery. Some change how well surgery (anesthesia) drugs work. Call your insurance company to let them know you're having surgery. (If you don't have insurance, call [phone].) Call your clinic if there's any change in your health. This includes signs of a cold or flu (sore throat, runny nose, cough, rash, fever). It also includes a scrape or scratch near the surgery site. If you have questions on the day of surgery, call your hospital or surgery center. Eating and drinking guidelines For your safety: Unless your surgeon tells you otherwise, follow the guidelines below. Eat and drink as usual until 8 hours before you arrive for surgery. After that, no food or milk. Drink clear liquids until 2 hours before you arrive. These are liquids you can see through, like water, Gatorade, and Propel Water. They also include plain black coffee and tea (no cream or milk), candy, and breath mints. You can spit out gum when you arrive. If you drink alcohol: Stop drinking it the night before surgery. If your care team tells you to take medicine on the morning of surgery, it's okay to take it with asip of water. Preventing infection Shower or bathe the night before and morning of your surgery. Follow the instructions your clinic gave you. (If no instructions, use regular soap.) Don't shave or clip hair near your surgery site. We'll remove the hair if needed. Don't smoke or vape the morning of surgery. You may chew nicotine gum up to 2 hours before surgery.A nicotine patch is okay. Note: Some surgeries require you to completely quit smoking and nicotine. Check with your surgeon. Your care team will make every effort to keep you safe from infection. We will: Clean our hands often with soap and water (or an alcohol-based hand rub). Clean the skin at your surgery site with a special soap that kills germs. Give you a special gown to keep you warm. (Cold raises the risk of infection.) Wear special hair covers, masks, gowns and gloves during surgery. Give antibiotic medicine, if prescribed. Not all surgeries need antibiotics. What to bring on the day of surgery Photo ID and insurance card Copy of your health care directive, if you have one Glasses and hearing aids (bring cases) You can't wear contacts during surgery Inhaler and eye drops, if you use them (tell us about these when you arrive) CPAP machine or breathing device, if you use them A few personal items, if spending the night If you have . . . A pacemaker, ICD (cardiac defibrillator) or other implant: Bring the ID card. An implanted stimulator: Bring the remote control. A legal guardian: Bring a copy of the certified (court-stamped) guardianship papers. Please remove any jewelry, including body piercings. Leave jewelry and other valuables at home. If you're going home the day of surgery You must have a responsible adult drive you home. They should stay with you overnight as well. If you don't have someone to stay with you, and you aren't safe to go home alone, we may keep you overnight. Insurance often won't pay for this. After surgery If it's hard to control your pain or you need more pain medicine, please call your surgeon's office. Questions? If you have any questions for your care team, list them here: For informational purposes only. Not to replace the advice of your health care provider. Copyright ?? 2018 [facility]. All rights reserved. Clinically reviewed by Dimple Bartlett MD. Mar[facility] [id number] - REV 07/01. How to Take Your Medication Before Surgery - hold eliquis and then continue other medications NICAL SUPPORT ANALYST documented in this encounter Progress Notes * Johnnie Moody NP - 08/01/2023 2:00 PM CST Preoperative Evaluation [address] [address] Primary Provider: Dyan Fuentes Pre-op Performing Provider: JOHNNIE MOODY Aug 01, 2023 Kaila is a 62 year old, presenting for the following: Pre-Op Exam (Surgery 08/03/2023 right eye and 08/24/2023 for left eye) 08/01/2023 1:20 PM Additional Questions Roomed by Lynda Oliver Surgical Information Surgery/Procedure: right cataract on 08/03/2023 and left cataract on 08/24/2023 Surgery Location: [facility] Surgeon: Dr. Multani Surgery Date: 08/03/2023 and 08/24/2023 Time of Surgery: 945AM Where patient plans to recover: At home with family Fax number for surgical facility: [phone] Assessment & Plan The proposed surgical procedure is considered LOW risk. Need for shingles vaccine Deferred due to cost Preop general physical exam Cleared for procedure Benign essential hypertension Stable, monitor Chronic obstructive pulmonary disease, unspecified COPD type (H) Stable, monitor Morbid obesity (H) monitor Hypertriglyceridemia Stable, monitor Hypothyroidism, unspecified type Stable, monitor Chronic kidney disease, stage 3a (H) Stable, monitor Uncomplicated opioid dependence (H) - on suboxone, follows with pain management Type 1 diabetes mellitus with other specified complication (H) - stable follow with endo Implanted Device - Type of device: dexcom CGM patient will remove day of procedure Patient advised to bring device information on day of surgery. - No identified additional risk factors other than previously addressed Antiplatelet or Anticoagulation Medication Instructions - Patient is on no antiplatelet or anticoagulation medications. Additional Medication Instructions - Beta Blockers: Continue taking on the day of surgery. - Calcium Channel Blockers: May be continued on the day of surgery. - Statins: Continue taking on the day of surgery. - Long acting insulin (e.g. glargine, detemir): Take 80% of the usual evening or morning dose before surgery. - short acting insulin (e.g. regular, lispro, aspart): HOLD on the morning of surgery. - Suboxone: Continue without modification. Notify Suboxone prescriber of upcoming surgery, patient will need an individualized perioperative plan. - LABA, inhaled corticosteroid, long-acting anticholinergics: Continue without modification. - rescue Inhaler: Continue PRN. Bring to hospital on the day of surgery. Recommendation APPROVAL GIVEN to proceed with proposed procedure, without further diagnostic evaluation. Subjective Via the Health Maintenance questionnaire, the patient has reported the following services have beencompleted -Foot Exam-Mammogram, this information has been sent to the abstraction team. HPI related to upcoming procedure: She is here for pre op for bilateral cataract removal, she does take suboxone for chronic pain, she is a type 1 diabetic and uses dexcom and basaglar and novolog. 08/01/2023 1:16 PM Preop Questions 1. Have you ever had a heart attack or stroke? No 2. Have you ever had surgery on your heart or blood vessels, such as a stent placement, a coronary artery bypass, or surgery on an artery in your head, neck, heart, or legs? No 3. Do you have chest pain with activity? No 4. Do you have a history of heart failure? YES - compensated 5. Do you currently have a cold, bronchitis or symptoms of other infection? No 6. Do you have a cough, shortness of breath, or wheezing? No 7. Do you or anyone in your family have previous history of blood clots? No 8. Do you or does anyone in your family have a serious bleeding problem such as prolonged bleeding following surgeries or cuts? No 9. Have you ever had problems with anemia or been told to take iron pills? YES - pernicious anemia 10. Have you had any abnormal blood loss such as black, tarry or bloody stools, or abnormal vaginalbleeding? No 11. Have you ever had a blood transfusion? YES - 11a. Have you ever had a transfusion reaction? No 12. Are you willing to have a blood transfusion if it is medically needed before, during, or after your surgery? Yes 13. Have you or any of your relatives ever had problems with anesthesia? No 14. Do you have sleep apnea, excessive snoring or daytime drowsiness? No 15. Do you have any artifical heart valves or other implanted medical devices like a pacemaker, defibrillator, or continuous glucose monitor? YES - dexcom CGM 15a. What type of device do you have? dexcom 15b. Name of the clinic that manages your device: [facility] 16. Do you have artificial joints? YES - right leg pins and hip replacement 17. Are you allergic to latex? No Health Care Directive Patient does not have a Health Care Directive or Living Will: Discussed advance care planning with patient; however, patient declined at this time. Preoperative Review of TRANSMISSION MAINTENANCE SUPERVISOR TRANSMISSION MAINTENANCE SUPERVISOR reviewed - controlled substances reflected in medication list. Status of Chronic Conditions: ANEMIA - Patient has a recent history of moderate-severe anemia, which has been symptomatic. Work up to date has revealed pernicious anemia. Treatment has been oral supplement. COPD - Patient has a longstanding history of moderate-severe COPD . Patient has been doing well overall noting NO SYMPTOMS and continues on medication regimen consisting of trellegy and albuterol without adverse reactions or side effects. DEPRESSION - Patient has a long history of Depression of moderate severity requiring medication forcontrol with recent symptoms being stable..Current symptoms of depression include none. DIABETES - Patient has a longstanding history of DiabetesType Type I . Patient is being treated with insulin injections and dexcom and denies significant side effects. Control has been good. Complicating factors include but are not limited to: hypertension, hyperlipidemia, neuropathy, and morbid obesity . HYPERLIPIDEMIA - Patient has a long history of significant Hyperlipidemia requiring medication for treatment with recent good control. Patient reports no problems or side effects with the medication. HYPERTENSION - Patient has longstanding history of HTN , currently denies any symptoms referable toelevated blood pressure. Specifically denies chest pain, palpitations, dyspnea, orthopnea, PND or peripheral edema. Blood pressure readings have been in normal range. Current medication regimen is aslisted below. Patient denies any side effects of medication. HYPOTHYROIDISM - Patient has a longstanding history of chronic Hypothyroidism. Patient has been doing well, noting no tremor, insomnia, hair loss or changes in skin texture. Continues to take medications as directed, without adverse reactions or side effects. Last TSH Lab Results Component Value Date TSH 74.10 (H) 07/12/2023 . Patient Active Problem List Diagnosis Date Noted At risk for healthcare associated infection 08/10/2020 Priority: High Chronic kidney disease, stage 3a (H) 07/12/2023 Priority: Medium Hepatic steatosis 12/03/2022 Priority: Medium Hyperglycemia 12/03/2022 Priority: Medium Pulmonary nodules 12/03/2022 Priority: Medium Elevated troponin 12/03/2022 Priority: Medium Acute on chronic pancreatitis (H) 12/03/2022 Priority: Medium Hypothyroidism, unspecified type 12/03/2022 Priority: Medium Chest pain, unspecified type 12/03/2022 Priority: Medium Morbid obesity (H) 10/25/2022 Priority: Medium Pancolitis (H) 10/14/2022 Priority: Medium Nausea and vomiting, unspecified vomiting type 10/14/2022 Priority: Medium Postoperative back pain 11/15/2021 Priority: Medium S/P laminectomy 11/10/2021 Priority: Medium Cervical spondylosis with myelopathy 05/18/2021 Priority: Medium Abdominal pain, generalized 01/16/2021 Priority: Medium Prolonged Q-T interval on ECG 01/16/2021 Priority: Medium Generalized anxiety disorder 11/19/2020 Priority: Medium Hypokalemia 10/27/2020 Priority: Medium Intractable abdominal pain 10/27/2020 Priority: Medium Generalized muscle weakness 08/19/2020 Priority: Medium Weakness of right foot 08/09/2020 Priority: Medium S/P total hip arthroplasty 08/06/2020 Priority: Medium Insomnia, unspecified type 07/29/2020 Priority: Medium Chronic diastolic congestive heart failure (H) 06/02/2020 Priority: Medium MARIELLE (obstructive sleep apnea) 07/24/2018 Priority: Medium Recurrent Clostridium difficile diarrhea 04/28/2018 Priority: Medium Postablative hypothyroidism 11/25/2017 Priority: Medium Migraine 11/09/2017 Priority: Medium Type 2 diabetes mellitus without complication, without long-term current use of insulin (H) 08/27/2017 Priority: Medium Nausea with vomiting 08/27/2017 Priority: Medium Avascular necrosis of bone of hip (H) 05/24/2017 Priority: Medium NAFLD (nonalcoholic fatty liver disease) 04/05/2017 Priority: Medium Benign essential hypertension 02/20/2017 Priority: Medium Opioid dependence (H) 02/20/2017 Priority: Medium COPD (chronic obstructive pulmonary disease) (H) 01/12/2017 Priority: Medium Moderate episode of recurrent major depressive disorder (H) 01/12/2017 Priority: Medium Anxiety 12/28/2016 Priority: Medium Vitamin D deficiency 11/30/2010 Priority: Medium Chronic pain 11/30/2010 Priority: Medium Hyperlipidemia LDL goal <100 11/30/2010 Priority: Medium Vitamin B12 deficiency Priority: Medium Neurogenic bladder Priority: Medium intermittent straight cath Recurrent pancreatitis Priority: Medium Hypertriglyceridemia Priority: Medium Hereditary and idiopathic peripheral neuropathy Priority: Medium abstracted 12/26/01 Problem list name updated by automated process. Provider to review Degeneration of intervertebral disc, site unspecified Priority: Medium abstracted 12/26/01 Esophageal reflux Priority: Medium abstracted 12/26/01 Nephrolithiasis Priority: Medium Diabetic neuropathy (H) Priority: Medium Tobacco dependence Priority: Medium Past Medical History: Diagnosis Date Anemia pernicous anemia Benzodiazepine dependence (H) C. difficile colitis Chronic infection C-diff since [address] Benites COPD (chronic obstructive pulmonary disease) (H) Degeneration of intervertebral disc, site unspecified abstracted 12/26/01 Diabetic neuropathy (H) Esophageal reflux abstracted 12/26/01 Generalized anxiety disorder History of blood transfusion History of Clostridium difficile colitis 08/10/2020 Hypertension Hypertriglyceridemia Malabsorption ? Nausea and vomiting, unspecified vomiting type 10/14/2022 Nephrolithiasis Neurogenic bladder intermittent straight cath Obese Opioid dependence (H) MARIELLE (obstructive sleep apnea) Other chronic pain Back and neck Port-A-Cath in place 08/10/2020 Recurrent pancreatitis Sleep apnea no CPAP Stress-induced cardiomyopathy Syncope Tobacco dependence Transaminitis 04/22/2018 Unspecified hereditary and idiopathic peripheral neuropathy abstracted 12/26/01 Unspecified hypothyroidism age 15 sp radiactive treatment ([facility]) Vitamin B12 deficiency Vitamin D deficiency Past Surgical History: Procedure Laterality Date APPENDECTOMY OPEN ARTHROPLASTY HIP Right 08/06/2020 Procedure: Right total hip arthroplasty; Surgeon: Lencho Mayo MD; Location: [facility] OR ARTHROSCOPY ANKLE Right 12/13/2017 Procedure: RIGHT ANKLE ARTHROSCOPY; Surgeon: Jovany Gonzalez MD; Location: [facility] OR;Service: BACK SURGERY Lumbar and cervical CARDIAC CATHETERIZATION COLONOSCOPY N/A 10/20/2015 Procedure: COMBINED COLONOSCOPY, SINGLE OR MULTIPLE BIOPSY/POLYPECTOMY BY BIOPSY; Surgeon: Kwaku Colón MD; Location: GI COLONOSCOPY N/A 05/09/2017 Procedure: COLONOSCOPY;; Surgeon: Lindsay Juares MD; Location: [facility] OR COLONOSCOPY N/A 10/28/2022 Procedure: COLONOSCOPY with biopsies; Surgeon: Jeffry Baxter MD; Location: [facility] OR CYSTOCELE REPAIR DISCECTOMY, FUSION CERVICAL ANTERIOR ONE LEVEL, COMBINED N/A 05/18/2021 Procedure: Anterior cervical discectomy and fusion, cervical 4-5; Surgeon: Wesley Barrett MD; Location: OR ESOPHAGOSCOPY, GASTROSCOPY, DUODENOSCOPY (EGD), COMBINED N/A 05/09/2017 Procedure: COMBINED ESOPHAGOSCOPY, GASTROSCOPY, DUODENOSCOPY (EGD); ESOPHAGOSCOPY, GASTROSCOPY, DUODENOSCOPY (EGD) with biopsies, COLONOSCOPY; Surgeon: Lindsay Juares MD; Location: OR ESOPHAGOSCOPY, GASTROSCOPY, DUODENOSCOPY (EGD), COMBINED N/A 09/06/2018 Procedure: COMBINED ENDOSCOPIC ULTRASOUND, ESOPHAGOSCOPY, GASTROSCOPY, DUODENOSCOPY (EGD); Surgeon:Zee Sims MD; Location: GI ESOPHAGOSCOPY, GASTROSCOPY, DUODENOSCOPY (EGD), COMBINED N/A 05/07/2019 Procedure: ESOPHAGOGASTRODUODENOSCOPY, WITH ENDOSCOPIC ULTRASOUND GUIDANCE; Surgeon: Yaya Washington MD; Location: OR ESOPHAGOSCOPY, GASTROSCOPY, DUODENOSCOPY (EGD), COMBINED 07/11/2016 FUSION CERVICAL ANTERIOR ONE LEVEL HYSTERECTOMY VAGINAL part of ovary is still in INCISION AND DRAINAGE HIP, COMBINED Right 08/20/2020 Procedure: Right hip irrigation, debridement and evacuation of hematoma; Surgeon: Lencho Mayo MD;Location: [facility] OR INSERT PUMP MORPHINE IR PORT REMOVAL RIGHT 08/12/2020 LAMINECTOMY LUMBAR TWO LEVELS Bilateral 11/10/2021 Procedure: Lumbar Laminectomy Lumbar 4 to Sacral 1 with Foraminotomy; Surgeon: Wesley Barrett MD; Location: [facility] OR LAPAROSCOPIC CHOLECYSTECTOMY 2011 OPEN REDUCTION INTERNAL FIXATION FIBULA Right 02/08/2017 OTHER SURGICAL HISTORY INSERT PUMP MORPHINEand removal RECONSTRUCT ANKLE Right 12/13/2017 Procedure: LATERAL LIGAMENT AND CALCANEAL CUBOID LIGAMENT RECONSTRUCTION, DYNAMIZE AND BONE GRAFT FIBULAR FRACTURE; Surgeon: Jovany Gonzalez MD; Location: [facility]; Service: rectocele and cystocel repairs REMOVE HARDWARE LOWER EXTREMITY Right 12/13/2017 Procedure: REMOVAL OF SYNDESMOSIS SCREWS, SUHAS; Surgeon: Jovany Gonzalez MD; Location: [facility]; Service: REPAIR RECTOCELE TONSILLECTOMY [facility] NONSPECIFIC PROCEDURE 06/2001 Colonoscopy - neg -- abstracted 12/26/01 Current Outpatient Medications Medication Sig Dispense Refill albuterol (PROAIR HFA/PROVENTIL HFA/VENTOLIN HFA) 108 (90 Base) MCG/ACT inhaler Inhale 2 puffs intothe lungs every 4 hours as needed for shortness of breath or wheezing 8.5 g 0 amLODIPine (NORVASC) 10 MG tablet Take 1 tablet (10 mg) by mouth daily 90 tablet 3 aspirin 81 MG EC tablet Take 81 mg by mouth daily brexpiprazole (REXULTI) 2 MG tablet Take 2 mg by mouth daily buprenorphine HCl-naloxone HCl (SUBOXONE) 4-[address] 0.5 Film under the tongue 4 times daily OK to fill and start 07/19/23 and start 07/21/23 60 Film 0 calcium carbonate (OS-ALISA) 1500 (600 Ca) MG tablet Take 1 tablet (600 mg) by mouth 2 times daily (with meals) 100 tablet 0 clonazePAM (KLONOPIN) 1 MG tablet Take 1 mg by mouth 2 times daily colestipol (COLESTID) 1 g tablet Take 1 tablet (1 g) by mouth 2 times daily for 90 days 180 tablet 3 Continuous Blood Gluc Vice President Payer (DEXCOM G6 UNDER GROUND MINER) ANITA USE DAILY 1 each 0 Continuous Blood Gluc Sensor (DEXCOM G6 SENSOR) MISC USE 1 SENSOR EVERY 10 DAYS 9 each 3 Continuous Blood Gluc Transmit (DEXCOM G6 TRANSMITTER) MISC CHANGE EVERY 3 MONTHS TO CONTINUOUSLY MONITOR BLOOD GLUCOSE. 1 each 0 cyanocobalamin (CYANOCOBALAMIN) 1000 MCG/ML injection INJECT 1 ML (1000 MCG) INTRAMUSCULARLY EVERY 30 DAYS. DISCARD 28 DAYS AFTERFIRST USE Strength: 1,000 mcg/mL 3 mL 3 desvenlafaxine (PRISTIQ) 100 MG 24 hr tablet TAKE 1 TABLET BY MOUTH EVERY DAY 90 tablet 0 desvenlafaxine (PRISTIQ) 50 MG 24 hr tablet TAKE 1 TABLET BY MOUTH ONCE DAILY TAKE WITH 100MG TABS FOR A TOTAL DAILY DOSE OF 150MGS 90 tablet 0 EPINEPHrine (ANY BX GENERIC EQUIV) 0.3 MG/0.3ML injection 2-pack Inject 0.3 mLs (0.3 mg) into the muscle as needed for anaphylaxis (EPI-PEN) 2 each 1 fenofibrate (TRICOR) 48 MG tablet Take 1 tablet (48 mg) by mouth daily 90 tablet 3 ferrous sulfate (FEROSUL) 325 (65 Fe) MG tablet Take 325 mg by mouth daily (with breakfast) 100 tablet 1 Dwbnbiuplgb-Pzueqlkzj-Tlhhabomyy (TRELEGY ELLIPTA) 200-62.5-25 MCG/ACT oral inhaler Inhale 1 puff into the lungs daily 28 each 3 hydrOXYzine (ATARAX) 25 MG tablet Take 25 mg by mouth 4 times daily insulin aspart (NOVOLOG FLEXPEN) 100 UNIT/ML pen INJECT 1 UNIT FOR 50 POINTS ABOVE 150 WITH EACH MEAL (TOTAL DAILY DOSE 10-15 UNITS PER DAY) 15 mL 1 insulin glargine 100 UNIT/ML pen Inject 50 Units Subcutaneous every morning 65 mL 1 ipratropium - albuterol 0.5 mg/2.5 mg/3 mL (DUONEB) 0.5-2.5 (3) MG/3ML neb solution Take 1 vial (3 mLs) by nebulization every 6 hours as needed for shortness of breath, wheezing or cough 90 mL 1 ketorolac (ACULAR) 0.5 % ophthalmic solution PLACE 1 DROP INTO OPERATIVE EYE FOUR TIMES A DAY STARTING AFTER SURGERY levothyroxine (SYNTHROID/LEVOTHROID) 200 MCG tablet Take 2 tablets (400 mcg) by mouth daily 180 tablet 0 methocarbamol (ROBAXIN) 500 MG tablet Take 2 tablets (1,000 mg) by mouth 4 times daily 150 tablet 2 metoprolol tartrate (LOPRESSOR) 25 MG tablet TAKE 1 TABLET BY MOUTH TWICE A DAY 180 tablet 3 naloxone (NARCAN) 4 MG/0.1ML nasal spray [place] 1 spray (4 mg) into one nostril alternating nostrilsonce as needed for opioid reversal 0.2 mL 0 nitroGLYcerin (NITROSTAT) 0.[address] 1 tablet (0.4 mg) under the tongue every 5minutes as needed for chest pain 25 tablet 0 nystatin (MYCOSTATIN) 176010 UNIT/GM external ointment Apply topically 2 times daily as needed ofloxacin (OCUFLOX) 0.3 % ophthalmic solution PLACE 1 DROP TO OPERATIVE EYE 4 TIMES A DAY STARTING TUESDAY BEFORE SURGERY omega-3 acid ethyl esters (LOVAZA) 1 g capsule Take 2 capsules by mouth 2 times daily 360 capsule 3 ondansetron (ZOFRAN) 8 MG tablet Take 1 tablet (8 mg) by mouth every 8 hours as needed for nausea 90 tablet 1 pantoprazole (PROTONIX) 40 MG EC tablet Take 1 tablet (40 mg) by mouth daily 90 tablet 3 Potassium Gluconate 595 MG CAPS Take 1 capsule by mouth daily 100 capsule 1 prednisoLONE acetate (PRED FORTE) 1 % ophthalmic suspension INSTILL 1 DROP TO OPERATIVE EYE 4 TIMESA DAY STARTING AFTER SURGERY risperiDONE (RISPERDAL) 1 MG tablet Take 1 mg by mouth daily at 2 pm rosuvastatin (CRESTOR) 40 MG tablet Take 1 tablet (40 mg) by mouth daily 90 tablet 3 simethicone (MYLICON) 80 MG chewable tablet Take 1 tablet (80 mg) by mouth every 6 hours as needed for flatulence or cramping Vitamin D3 (VITAMIN D, CHOLECALCIFEROL,) 25 mcg (1000 units) tablet Take 1 tablet by mouth daily risperiDONE (RISPERDAL M-TABS) 0.[address] 0.5 mg under the tongue every morning (Patient not taking: Reported on 08/01/2023) Allergies Allergen Reactions Bees Anaphylaxis Levaquin [Levofloxacin Hemihydrate] Rash Nsaids Hx GI Bleed Reglan [Metoclopramide Hcl] Hives Droperidol Other (See Comments) Behavioral changes Nalbuphine Hcl Behavioral changes Phenergan [Promethazine] Other (See Comments) Patient reports she gets mean & jerky Social History Tobacco Use Smoking status: Former Packs/day: 1.00 Years: 50.00 Additional pack years: 0.00 Total pack years: 50.00 Types: Cigarettes Quit date: 05/19/2023 Years since quittin.2 Passive exposure: Past Smokeless tobacco: Never Substance Use Topics Alcohol use: Not Currently Family History Problem Relation Age of Onset Colon Cancer Mother Other - See Comments Father murdered Liver Disease Father Substance Abuse Father Substance Abuse Sister Substance Abuse Sister History Drug Use No Comment: marijuana in high school Review of Systems Review of Systems Constitutional, HEENT, cardiovascular, pulmonary, gi and gu systems are negative, except as otherwise noted. Objective BP 119/82 (BP Location: Right arm, Patient Position: Chair, Cuff Size: Adult Large) Pulse 70 Temp 97.8 ??F (36.6 ??C) (Oral) Resp 20 Ht 1.727 m (5' 8) Wt 115.7 kg (255 lb) LMP (LMP Unknown) SpO2 96% No BMI 38.77 kg/m?? Estimated body mass index is 38.77 kg/m?? as calculated from the following: Height as of this encounter: 1.727 m (5' 8). Weight as of this encounter: 115.7 kg (255 lb). Physical Exam GENERAL: alert and no distress EYES: Eyes grossly normal to inspection, PERRL and conjunctivae and sclerae normal HENT: ear canals and TM's normal, nose and mouth without ulcers or lesions NECK: no adenopathy, no asymmetry, masses, or scars RESP: lungs clear to auscultation - no rales, rhonchi or wheezes CV: regular rate and rhythm, normal S1 S2, no S3 or S4, no murmur, click or rub, no peripheral edema ABDOMEN: soft, nontender, no hepatosplenomegaly, no masses and bowel sounds normal MS: no gross musculoskeletal defects noted, no edema NEURO: Normal strength and tone, mentation intact and speech normal PSYCH: mentation appears normal, affect normal/bright Recent Labs Lab Test 06/23/23 1528 12/11/22 0654 12/10/22 1314 10/17/22 0556 10/16/22 2131 11/10/21 0748 10/17/21 1044 HGB -- 9.5* 10.1* < > -- < > -- PLT -- 154 155 < > -- < > -- INR -- -- -- -- -- -- 1.05 NA 139 138 -- < > -- < > -- POTASSIUM 4.5 4.3 -- < > 3.8 < > -- CR 1.28* 1.00* -- < > -- < > -- A1C 8.9* -- -- -- 6.5* < > -- < > = values in this interval not displayed. Diagnostics Recent Results (from the past 720 hour(s)) TSH Collection Time: 07/12/23 11:07 AM Result Value Ref Range TSH 74.10 (H) 0.30 - 4.20 uIU/mL T4, free Collection Time: 07/12/23 11:07 AM Result Value Ref Range Free T4 0.53 (L) 0.90 - 1.70 ng/dL No EKG required for low risk surgery (cataract, skin procedure, breast biopsy, etc). Revised Cardiac Risk Index (RCRI) The patient has the following serious cardiovascular risks for perioperative complications: - Congestive Heart Failure (pulmonary edema, PND, s3 whitney, CXR with pulmonary congestion, basilarrales) = 1 point - Diabetes Mellitus (on Insulin) = 1 point RCRI Interpretation: 2 points: Class III (moderate risk - 6.6% complication rate) Estimated Functional Capacity: Performs 4 METS exercise without symptoms (e.g., light housework, stairs, 4 mph walk, 7 mph bike, slow step dance) Signed Electronically by: Johnnie Moody NP Copy of this evaluation report is provided to requesting physician. Answers submitted by the patient for this visit: Patient Health Questionnaire (Submitted on 08/01/2023) If you checked off any problems, how difficult have these problems made it for you to do your work,take care of things at home, or get along with other people?: Very difficult PHQ9 TOTAL SCORE: 8 ANTHONY-7 (Submitted on 08/01/2023) ANTHONY 7 TOTAL SCORE: 2 NICAL SUPPORT ANALYST documented in this encounter Plan of Treatment Upcoming Encounters Date Type Department Care Team (Late st Contact Info) Description 08/18/2023 3:00 PM TECHNICAL SUPPORT ANALYST Office Visit [facility] [address] [place] [address] Katiana Read MD [address] [place] [address] documented as of this encounter Goals Goal [...] t Education Needed to Optimize Self-Care Behaviors Blanqiuta Stuart Taking Medication - patient is consistently [...] documented as of this encounter Visit Diagnoses Diagnosis Preop general physical exam- Primary Other specified pre-operative examination Need for shingles vaccine Need for prophylactic vaccination and inoculation against varicella Benign essential hypertension Essential hypertension, benign Chronic obstructive pulmonary disease, unspecified COPD type (H) Morbid obesity (H) Morbid obesity Hypertriglyceridemia Pure hyperglyceridemia Hypothyroidism, unspecified type Chronic kidney disease, stage 3a (H) Uncomplicated opioid dependence (H) Opioid type dependence, unspecified Type 1 diabetes mellitus with other specified complication (H) documented in this encounter Additional Health Concerns Problem Noted Date Diagnosed Date HbA1C Not In Goal 04/25/2023 Diabetes Self-Management Edu cation Needed to Optimize Self-Care Behaviors 04/25/2023 Assessment Noted Time PHQ-9 Depression Total Score: 8 08/01/19 24 1:11 PM TECHNICAL SUPPORT ANALYST documented as of this encounter Care Teams Family Intervention Specialist Relationship Specialty [place] [address] [place] [address] PCP - General Family Medicine 05/18/22 Jovany Gonzalez MD [facility] [address] [facility] [address] [place], [place] [address] Orthopedics 02/15/17 Staci Woodward BRIQUETTE MACHINE OPERATOR HELPER [place] [address] [place], [place] [address] Nurse Practitioner Nurse Practitioner Psych/Mental Health 05/10/17 Reanna Smith, [place] [address] [place], [place] [address] Call Center Agent Dietitian, Registered 07/25/19 Roshni Nascimento, RN Personal Advocate & Liaison (PAL) Family Medicine 08/18/20 Kiet Swain MD [address]50 [facility] [address] [place] [address] Referring Physician Psychiatry 09/19/20 Winsome Pike APRN FAMILY PHYSICIAN [address] [place] [address] Nurse Practitioner Psychiatry 09/19/20 Tori Hines [facility] [address]50 [place] [address] Leather Tanner Leather Tanner - Clinical 09/19/20 Miranda Queen [facility] [address] [place] [address] Pharmacist Pharmacist 11/12/20 Marisel Armando MD 909 [place], [place] [address] Gastroenterology 02/05/21 Wesley Barrett MD 420 [facility] [address] [place], [place] [address] Assigned Neuroscience Provider 05/10/21 [place] [address] [place], [place] [address] Assigned PCP 05/15/22 Katiana Read MD [address] [facility] [address] [place], [place] [address] Assigned Endocrinology Provider 06/19/22 Mary Del Cid, RAFAEL [address] [place] [address] Nurse Practitioner Nurse Practitioner 10/18/22 Elham Stack, [facility] [address] [place] [address] Pharmacist Pharmacist 10/19/22 Aubrey Jones MD [address] [place] [address] Cardiovascular Disease 03/28/23 Blanquita Morales Call Center Agent Diabetes Education 04/25/23 Aubrey Jones MD [address] [place] [address] Assigned Heart and Vascular Provider 05/07/23 documented as of this encounter
--- OUTSIDE RECORDS SUMMARY | 2023-08-03 09:55 | XMS_ITS | Encounter Summary ---
Author Name Unknown Organization [place] Address [address] [place] [address]. [place] [address] Care Team Providers Care Foam Caster Name Role Phone Jovany Gonzalez MD Unavailable CrissyStaci jeong KNITTED GOODS SHAPER Unavailable [phone] Unavailable [phone] Roshni Nascimento RN Unavailable Unavailable Kiet Swain MD Unavailable [phone] Winsome Pike APRN FIBREGLASS LAY UP WORKER Unavailable [phone] Tori Hines [facility] Unavailable Miranda Queen [facility] Unavailable Unavailable Marisel Armando MD Unavailable eWsley Barrett MD Unavailable [phone] Dyan Fuentes MD Primary Care Provider [phone] Dyan Fuentes MD Unavailable [phone] Katiana Read MD Unavailable [phone] Mary Del Cid KNITTED GOODS SHAPER Unavailable + [phone] Elham Stack [facility] Unavailable [phone] Aubrey Jones MD Unavailable [phone] Blanquita Morales Unavailable Unavailable Aubrey Jones MD Unavailable [phone] Reason for Visit * Reason Onset Date Comments MyChart Communication 07/12/2023 Encounter Details Date Type Department Care Team (Latest Contact Info) Description 07/12/2023 Lauren Medical Advice [facility] [address] [place] [address] Rachelle Benites CMA MyChart Communication Social History Tobacco Use Types Packs/Day Years [...] week 06/20/2023 How often do you attend mormon or pentecostal serv ices? Never 06/20/2023 Do you belong to any clubs o r organizations such as mormon groups, unions, fraternal or athletic groups, or [...] Answer Date Recorded PHQ-2 Score 1 06/23/2023 [facility] [place] of Occupat ional Health - Occupational Stress [...] encounter Miscellaneous Notes * Telephone Encounter - Rachelle Benites CMA - 07/18/2023 7:42 AM WAREHOUSE ORDER PULLER Dexcom report in your inbox. Zenobia Benites CMA -[facility] Endocrinology [place] [phone] HOUSE ORDER PULLER documented in this encounter Plan of Treatment Upcoming Encounters Date Type Department Care Team (Late st Contact Info) Description 08/18/2023 3:00 PM WAREHOUSE ORDER PULLER Office Visit [facility] [address] [place] [address] Katiana Read MD [address] [place] [address] documented as of this encounter Goals Goal [...] Total Score: 7 06/23/20 23 1:54 PM WAREHOUSE ORDER PULLER documented as of this encounter Care Teams Foam Caster Relationship Specialty [place] [address] [place] [address] PCP - General Family Medicine 05/18/22 Jovany Gonzalez MD [facility] [address] [facility] [address] [place], [place] [address] Orthopedics 02/15/17 Staci Woodward KNITTED GOODS SHAPER [facility] [address] [place], [place] [address] Nurse Practitioner Nurse Practitioner Psych/Mental Health 05/10/17 Reanna Smith, RD [facility] [address] [place], [place] [address] Technical Support Assistant Dietitian, Registered 07/25/19 Roshni Nascimento, RN Personal Advocate & Liaison (PAL) Family Medicine 08/18/20 Kiet Swain MD 2450 [facility] [address] [place], [place] [address] Referring Physician Psychiatry 09/19/20 Winsome Pike APRN FIBREGLASS LAY UP WORKER [address] [address] Nurse Practitioner Psychiatry 09/19/20 Tori Hines, [facility] [address]50 [place], [place] [address] Marketing Data Specialist Marketing Data Specialist - Clinical 09/19/20 Miranda Queen [facility] [address] [place] [address] Pharmacist Pharmacist 11/12/20 Marisel Armando MD 909 [place], [place] [address] Gastroenterology 02/05/21 Wesley Barrett MD 420 [facility] [address] [place] [address] Assigned Neuroscience Provider 05/10/21 [place] [address] [place] [address] Assigned PCP 05/15/22 Katiana Read MD [address] [place] [address] Assigned Endocrinology Provider 06/19/22 Mary Del Cid, RAFAEL [address] [place] [address] Nurse Practitioner Nurse Practitioner 10/18/22 [facility] 3033 [place] [address] Pharmacist Pharmacist 10/19/22 Aubrey Jones MD [address] [facility] [address] [place] [address] Cardiovascular Disease 03/28/23 Blanquita Morales Technical Support Assistant Diabetes Education 04/25/23 Aubrey Jones MD [address] [place] [address] Assigned Heart and Vascular Provider 05/07/23 documented as of this encounter
--- OUTSIDE RECORDS SUMMARY | 2023-08-03 09:55 | XMS_ITS | Encounter Summary ---
Author Name Unknown Organization [place] Address [address] [place] [address]. [place] [address] Care Team Providers Care Svp Of Digital Name Role Phone Jovany Gonzalez MD Unavailable [phone] CrissyStaci jeong DENTAL TECHNICIAN INSTRUCTOR Unavailable [phone] Unavailable [phone] Roshni Nascimento RN Unavailable Unavailable Kiet Swain MD Unavailable [phone] Winsome Pike APRN SECURITY TRAINER Unavailable [phone] Tori Hines [facility] Unavailable Miranda Queen [facility] Unavailable Unavailable Marisel Armando MD Unavailable Wesley Barrett MD Unavailable [phone] Dyan Fuentes MD Primary Care Provider [phone] Dyan Fuentes MD Unavailable [phone] Katiana Read MD Unavailable [phone] Mary Del Cid DENTAL TECHNICIAN INSTRUCTOR Unavailable + [phone] Elham Stack [facility] Unavailable [phone] Aubrey Jones MD Unavailable [phone] Blanquita Morales Unavailable Unavailable Aubrey Jones MD Unavailable [phone] Encounter Details Date Type Department Care Team (Late st Contact Info) Description 07/14/2023 Orders Only [address] [address] Lenka Parks PA-C 500 [place] [address] Postprocedural hypothyroidism Social History Tobacco Use Types Packs/Day Years [...] week 06/20/2023 How often do you attend yarsani or buddhism serv ices? Never 06/20/2023 Do you belong to any clubs o r organizations such as yarsani groups, unions, fraternal or athletic groups, or [...] Answer Date Recorded PHQ-2 Score 1 06/23/2023 [facility] of Occupat ional Health - Occupational Stress [...] st Contact Info) Description 08/18/2023 3:00 PM DIESEL ENGINE MECHANIC Office Visit [facility] [address] [place] [address] Katiana Read MD [address] [place] [address] documented as of this encounter Goals Goal [...] as of this encounter Visit Diagnoses Diagnosis Postprocedural hypothyroidism Postsurgical hypothyroidism documented in this encounter Additional Health Concerns Problem Noted Date Diagnosed Date HbA1C Not In Goal 04/25/2023 Diabetes Self-Management Edu cation Needed to Optimize Self-Care Behaviors 04/25/2023 Assessment Noted Time PHQ-9 Depression Total Score: 7 06/23/20 23 1:54 PM DIESEL ENGINE MECHANIC documented as of this encounter Care Teams Svp Of Digital Relationship Specialty [place] [address] [place] [address] PCP - General Family Medicine 05/18/22 Jvoany Gonzalez MD [facility] [address] [facility] [address] [place] [address] Orthopedics 02/15/17 Staci Woodward, DENTAL TECHNICIAN INSTRUCTOR [place] [address] [place] [address] Nurse Practitioner Nurse Practitioner Psych/Mental Health 05/10/17 Reanna Smith, RD [facility] [address] [place], [place] [address] Retail Coverage Merchandiser Dietitian, Registered 07/25/19 Roshni Nascimento, RN Personal Advocate & Liaison (PAL) Family Medicine 08/18/20 Kiet Swain MD [address] [place], [place] [address] [place], [place] [address] Referring Physician Psychiatry 09/19/20 Winsome Pike APRN SECURITY TRAINER [address] [place] [address] Nurse Practitioner Psychiatry 09/19/20 Tori Hines, [facility] [address] [place] [address] Accounting Intern Accounting Intern - Clinical 09/19/20 Miranda Queen [facility] [address] [place] [address] Pharmacist Pharmacist 11/12/20 Marisel Armando MD 909 [place] [address] Gastroenterology 02/05/21 Wesley Barrett MD 420 [facility] [address] [place] [address] Assigned Neuroscience Provider 05/10/21 [place] [address] [place] [address] Assigned PCP 05/15/22 Katiana Read MD [address] [facility] 200 [place] [address] Assigned Endocrinology Provider 06/19/22 [place] [address] [place] [address] Nurse Practitioner Nurse Practitioner 10/18/22 [facility] [address] [place] [address] Pharmacist Pharmacist 10/19/22 Aubrey Jones MD [address] [place] [address] Cardiovascular Disease 03/28/23 Blanquita Morales Retail Coverage Merchandiser Diabetes Education 04/25/23 Aubrey Jones MD [address] [place] [address] Assigned Heart and Vascular Provider 05/07/23 documented as of this encounter
--- OUTSIDE RECORDS SUMMARY | 2023-08-03 09:55 | XMS_ITS | Encounter Summary ---
Author Name Unknown Organization [place] Address [address] [place] [address]. [place] [address] Care Team Providers Care Occ Med Physician Name Role Phone Jovany Gonzalez MD Unavailable CrissyStaci jeong FASHION BUYER Unavailable [phone] Unavailable [phone] Roshni Nascimento RN Unavailable Unavailable Kiet Swain MD Unavailable [phone] Winsome Pike APRN LOG POND WORKER Unavailable [phone] Tori Hines [facility] Unavailable Miranda Queen [facility] Unavailable Unavailable Marisel Armando MD Unavailable Wesley Barrett MD Unavailable [phone] Dyan Fuentes MD Primary Care Provider [phone] Dyan Fuentes MD Unavailable [phone] Katiana Read MD Unavailable [phone] Mary Del Cid FASHION BUYER Unavailable + [phone] Elham Satck [facility] Unavailable [phone] Aubrey Jones MD Unavailable [phone] Blanquita Morales Unavailable Unavailable Aubrey Jones MD Unavailable [phone] Reason for Visit * Reason Onset Date Comments Panel Management 07/26/2023 Encounter Details Date Type Department Care Team (Late st Contact Info) Description 07/26/2023 Telephone [facility] [address] [place] [address] [place] [address] [place] [address] Panel Management Social History Tobacco Use Types Packs/Day Years [...] week 06/20/2023 How often do you attend methodist or roman catholic serv ices? Never 06/20/2023 Do you belong to any clubs o r organizations such as methodist groups, unions, fraternal or athletic groups, or [...] Answer Date Recorded PHQ-2 Score 1 06/23/2023 [facility] of Occupat ional Health - Occupational [...] encounter Miscellaneous Notes * Telephone Encounter - Panchito Bustamante CMA - 07/26/2023 3:02 PM CST Patient Quality Outreach Patient is due for the following: Breast Cancer Screening - Mammogram Next Steps: Schedule a office visit for mammogram Type of outreach: Sent letter. Next Steps: Reach out within 90 days via Letter. Max number of attempts reached: No. Will try again in 90 days if patient still on fail list. Questions for provider review: None Panchito Bustamante CMA Chart routed to none. INE FILLER SHREDDER documented in this encounter Plan of Treatment Upcoming Encounters Date Type Department Care Team (Late st Contact Info) Description 08/18/2023 3:00 PM MACHINE FILLER SHREDDER Office Visit [facility] [address] [facility] [address] [place] [address] Katiana Read MD [address] [place] [address] documented as of this encounter Goals Goal [...] Total Score: 7 06/23/20 23 1:54 PM MACHINE FILLER SHREDDER documented as of this encounter Care Teams Occ Med Physician Relationship Specialty [place] [address] [place] [address] PCP - General Family Medicine 05/18/22 Jovany Gonzalez MD [facility] 6600 [facility] 605 [place] [address] Orthopedics 02/15/17 Staci Woodward FASHION BUYER [place] [address] [place], [place] [address] Nurse Practitioner Nurse Practitioner Psych/Mental Health 05/10/[address] [place] [address] [place], [place] [address] Shingle Sawyer Dietitian, Registered 07/25/19 Roshni Nascimento RN Personal Advocate & Liaison (PAL) Family Medicine 08/18/20 Kiet Swain MD 2450 [facility] [address] [place] [address] Referring Physician Psychiatry 09/19/20 Winsome Pike APRN CNP [address] [place] [address] Nurse Practitioner Psychiatry 09/19/20 Tori Hines, [facility] [address] [place] [address] Dress Shoe Inspector Dress Shoe Inspector - Clinical 09/19/20 Miranda Queen [facility] [address] [place] [address] Pharmacist Pharmacist 11/12/20 Marisel Armando MD 909 [place], [place] [address] Gastroenterology 02/05/21 Wesley Barrett MD 420 [facility] [address] [place], [place] [address] Assigned Neuroscience Provider 05/10/21 [place] [address] [place] [address] Assigned PCP 05/15/22 Katiana Read MD [address] [facility] 200 [place], [place] [address] Assigned Endocrinology Provider 06/19/22 [place] [address] [place] [address] Nurse Practitioner Nurse Practitioner 10/18/22 Elham Stack, [facility] [address] [place] [address] Pharmacist Pharmacist 10/19/22 Aubrey Jones MD [address] [place] [address] Cardiovascular Disease 03/28/23 Blanquita Morales Shingle Sawyer Diabetes Education 04/25/23 Aubrey Jones MD [address] [place] [address] Assigned Heart and Vascular Provider 05/07/23 documented as of this encounter
--- OUTSIDE RECORDS SUMMARY | 2023-08-03 09:55 | XMS_ITS | Encounter Summary ---
Author Name Unknown Organization [facility] Address [address] [place] [address]. [place] [address] Care Team Providers Care Jewelry Making Instructor Name Role Phone Jovany Gonzalez MD Unavailable CrissyStaci jeong BOOKBINDING MACHINE OPERATOR Unavailable [phone] Unavailable [phone] Roshni Nascimento RN Unavailable Unavailable Kiet Swain MD Unavailable [phone] Winsome Pike APRN CODE NUMBER STAMPER Unavailable [phone] Tori Hines [facility] Unavailable Miranda Queen [facility] Unavailable Unavailable Marisel Armando MD Unavailable Wesley Barrett MD Unavailable [phone] Dyan Fuentes MD Primary Care Provider [phone] Dyan Fuentes MD Unavailable [phone] Katiana Read MD Unavailable [phone] Mary Del Cid BOOKBINDING MACHINE OPERATOR Unavailable + [phone] [facility] Unavailable [phone] Aubrey Jones MD Unavailable [phone] Blanquita Morales Unavailable Unavailable Aubrey Jones MD Unavailable [phone] Encounter Details Date Type Department Care Team (Latest Contact Info) Description 07/12/2023 Travel Social History Tobacco Use Types Packs/Day [...] week 06/20/2023 How often do you attend oriental orthodox or zoroastrian serv ices? Never 06/20/2023 Do you belong to any clubs o r organizations such as oriental orthodox groups, unions, fraternal or athletic groups, or [...] Answer Date Recorded PHQ-2 Score 1 06/23/2023 [facility] - Occupational [...] st Contact Info) Description 08/18/2023 3:00 PM FACILITIES MAINTENANCE SUPERVISOR Office Visit [facility] [address] [place] [id number] Katiana Read MD [address] [place] [address] documented as of this encounter Goals Goal [...] Total Score: 7 06/23/20 23 1:54 PM FACILITIES MAINTENANCE SUPERVISOR documented as of this encounter Care Teams Jewelry Making Instructor Relationship Specialty [place] [address] [place] [address] PCP - General Family Medicine 05/18/22 Jovany Gonzalez MD [facility] [address] [facility] [address] [place], [place] [address] Orthopedics 02/15/17 Staci Woodward, BOOKBINDING MACHINE OPERATOR [place] [address] [place], [place] [address] Nurse Practitioner Nurse Practitioner Psych/Mental Health 05/10/17 Reanna Smith, RD [place] [address] [place], [place] [address] Chiropractic Assistant Dietitian, Registered 07/25/19 Roshni Nascimento, RN Personal Advocate & Liaison (PAL) Family Medicine 08/18/20 Kiet Swain MD [address] [place] [id number] Referring Physician Psychiatry 09/19/20 Winsome Pike APRN CODE NUMBER STAMPER [address] [place] [address] [id number] Nurse Practitioner Psychiatry 09/19/20 Tori Hines, [facility] [address] [place] [address] [id number] Float Tender Float Tender - Clinical 09/19/[address] [facility] [address] [place] [address] Pharmacist Pharmacist 11/12/20 Marisel Armando MD [address] [place], [place] [address] Gastroenterology 02/05/21 Wesley Barrett MD [address] [facility] [address] [place] [address] Assigned Neuroscience Provider 05/10/21 [place] [address] [place] [address] Assigned PCP 05/15/22 Katiana Read MD [address] [place] [address] Assigned Endocrinology Provider 06/19/22 [place] [address] [place] [address] Nurse Practitioner Nurse Practitioner 10/18/22 Elham Stack, [facility] [address] [place] [address] Pharmacist Pharmacist 10/19/22 Aubrey Jones MD [address] [place] [address] Cardiovascular Disease 03/28/23 Blanquita Morales Chiropractic Assistant Diabetes Education 04/25/23 Aubrey Jones MD [address] [place] [address] Assigned Heart and Vascular Provider 05/07/23 documented as of this encounter
--- OUTSIDE RECORDS SUMMARY | 2023-08-03 09:55 | XMS_ITS | Encounter Summary ---
Author Name Unknown Organization [facility] Address [address] [place] [address]. [place] [address] Care Team Providers Care Wholesale And Retail Merchant Name Role Phone Jovany Gonzalez MD Unavailable CrissyStaci jeong MANUFACTURING AUTOMATION ENGINEER Unavailable [phone] Unavailable [phone] Roshni Nascimento RN Unavailable Unavailable Kiet Swain MD Unavailable [phone] Winsome Pike APRN TYPESETTING MACHINE OPERATOR/TENDER Unavailable [phone] [facility] Unavailable Miranda Queen [facility] Unavailable Unavailable Marisel Armando MD Unavailable Wesley Barrett MD Unavailable [phone] Dyan Fuentes MD Primary Care Provider [phone] Dyan Fuentes MD Unavailable [phone] Katiana Read MD Unavailable [phone] Mary Del Cid MANUFACTURING AUTOMATION ENGINEER Unavailable [phone] Elham Stack [facility] Unavailable [phone] Aubrey Jones MD Unavailable [phone] Blanquita Morales Unavailable Unavailable Aubrey Jones MD Unavailable [phone] Reason for Visit * Reason Comments Medication Refill Encounter Details Date Type Department Care Team (Late st Contact Info) Description 07/21/2023 Refill [facility] [address] [place] [address] Katiana Read MD [address] [place] [address] Medication Refill Social History Tobacco Use Types Packs/Day Years [...] week 06/20/2023 How often do you attend gnosticism or faith serv ices? Never 06/20/2023 Do you belong to any clubs o r organizations such as gnosticism groups, unions, fraternal or athletic groups, or [...] Answer Date Recorded PHQ-2 Score 1 06/23/[address] [facility] [place] [facility] - Occupational Stress [...] encounter Miscellaneous Notes * Telephone Encounter - Nhi Wong RN - 07/21/2023 1:31 PM CST Requested Prescriptions Pending Prescriptions Disp Refills Continuous Blood Gluc Transmit (DEXCOM G6 TRANSMITTER) MISC [Pharmacy Med Name: DEXCOM G6 TRANSMITTER MISCELLANEOUS] 2 Sig: CHANGE EVERY 3 MONTHS TO CONTINUOUSLY MONITOR BLOOD GLUCOSE. Diabetic Supplies Protocol Passed - 07/21/2023 1:30 PM Passed - Medication is active on med list Passed - Patient is 18 years of age or older Passed - Recent (6 mo) or future (30 days) visit within the authorizing provider's specialty Patient had office visit in the last 6 months or has a visit in the next 30 days with authorizing provider. See Patient Info tab in inbasket, or Choose Columns in Meds & Orders section of therefill encounter. PLANT OPERATOR documented in this encounter Plan of Treatment Upcoming Encounters Date Type Department Care Team (Late st Contact Info) Description 08/18/2023 3:00 PM LIME PLANT OPERATOR Office Visit [facility] [address] [facility] [address] [place] [address] Katiana Read MD [address] [address] [place] [address] documented as of this encounter Goals Goal [...] as of this encounter Visit Diagnoses Diagnosis Type 2 diabetes mellitus without complication, with long-term current use of insulin (H) documented in this encounter Additional Health Concerns Problem Noted Date Diagnosed Date HbA1C Not In Goal 04/25/2023 Diabetes Self-Management Edu cation Needed to Optimize Self-Care Behaviors 04/25/2023 Assessment Noted Time PHQ-9 Depression Total Score: 7 06/23/20 23 1:54 PM LIME PLANT OPERATOR documented as of this encounter Care Teams Wholesale And Retail Merchant Relationship Specialty [place] [address] [place] [address] PCP - General Family Medicine 05/18/22 Jovany Gonzalez MD [facility] [address] [facility] [address] [place], [place] [address] Orthopedics 02/15/17 Staci Woodward NP [place] [facility] [address] [place] [address] Nurse Practitioner Nurse Practitioner Psych/Mental Health 05/10/[address] [facility] [address] [place] [address] Lap Winder Dietitian, Registered 07/25/19 Roshni Nascimento, RN Personal Advocate & Liaison (PAL) Family Medicine 08/18/20 Kiet Swain MD [facility] [address] [place], [place] [address] Referring Physician Psychiatry 09/19/20 Winsome Pike APRN TYPESETTING MACHINE OPERATOR/TENDER [address] [place] [address] Nurse Practitioner Psychiatry 09/19/20 Tori Hines, [facility] [place], [place] [address] Machine Greaser Machine Greaser - Clinical 09/19/20 [facility] [address] [place] [address] Pharmacist Pharmacist 11/12/20 Marisel Armando MD [address] [place], [place] [address] Gastroenterology 02/05/21 Wesley Barrett MD [address] [facility] [address] [place] [address] Assigned Neuroscience Provider 05/10/21 [place] [address] [place] [address] Assigned PCP 05/15/22 Katiana Read MD [address] [place], [place] [address] Assigned Endocrinology Provider 06/19/22 [place] [address] [address] [place] [address] Nurse Practitioner Nurse Practitioner 10/18/22 Elham Stack, [facility] [address] [facility] [address] [place], [place] [address] Pharmacist Pharmacist 10/19/22 Aubrey Jones MD [address] [place] [address] Cardiovascular Disease 03/28/23 Blanquita Morales Lap Winder Diabetes Education 04/25/23 Aubrey Jones MD [address] [place] [address] Assigned Heart and Vascular Provider 05/07/23 documented as of this encounter
--- OUTSIDE RECORDS SUMMARY | 2023-08-03 09:55 | XMS_ITS | Encounter Summary ---
Author Name Unknown Organization [facility] Address [address] [place] [address]. [place] [address] Care Team Providers Care Airplane Woodworker Name Role Phone Jovany Gonzalez MD Unavailable CrissyStaci jeong DIRECTOR SANITATION [employer]UREAU Unavailable [phone] Unavailable [phone] Roshni Nascimento RN Unavailable Unavailable Kiet Swain MD Unavailable [phone] Winsome Pike APRN REMOTE OPERATIONS PRODUCER Unavailable [phone] Tori Hines [facility] Unavailable Miranda Queen [facility] Unavailable Unavailable Marisel Armando MD Unavailable Wesley Barrett MD Unavailable [phone] Dayn Fuentes MD Primary Care Provider [phone] Dyan Fuentes MD Unavailable [phone] Katiana Read MD Unavailable [phone] Mary Del Cid DIRECTOR SANITATION [employer]AU Unavailable [phone] Elham Stack [facility] Unavailable [phone] Aubrey Jones MD Unavailable [phone] Blanquita Morales Unavailable Unavailable Aubrey Jones MD Unavailable [phone] Reason for Visit * Reason Comments Pain Encounter Details Date Type Department Care Team (Late st Contact Info) Description 07/19/2023 3:00 PM GRIDDLE ATTENDANT Virtual Visit [facility] [place] [address] [place], [place] [address] [place] [address] [address] [address] Chronic pain syndrome (Primary Dx); S/P lumbar laminectomy; S/P cervical spinal fusion; Muscle spasm Social History Tobacco Use Types Packs/Day Years [...] week 06/20/2023 How often do you attend jainism or uatsdin serv ices? Never 06/20/2023 Do you belong to any clubs o r organizations such as jainism groups, unions, fraternal or athletic groups, or [...] Answer Date Recorded PHQ-2 Score 1 06/23/2023 [facility] Cost of Occupat ional Health - Occupational Stress [...] AM CDT documented as of this encounter Patient Instructions * Patient Instructions* Mary Del Cid NP - 07/19/2023 3:00 PM GRIDDLE ATTENDANT Okay to try TENS unit. Please see order and call medical supply to check on coverage. Follow-up in person for evaluation of increased back pain. Please remember this from our controlled substance agreement: I will only receive prescriptions from this clinic for chronic pain. If I am treated by another provider for acute pain issues, I will tell them that I am taking opioid pain medication for chronic pain and that I have a treatment agreement with this provider. [facility] if I am given a prescription for any pain medication by another healthcare provider. My [facility] care team can contact other providers and pharmacists about my use of any medicines. Scheduling/Clinic telephone number for ALL locations: [phone] After Hours On-Call Service for Emergencies: [phone] Call with any questions about your care and for scheduling assistance. Calls are returned Tuesday through Tuesday between 8 AM and 4:00 PM. We usually get back to you within 2-3 business days depending on the issue/request. I am not in the clinic on Fridays. If we are prescribing your medications: For medication refills, call the clinic or send a Augmentix message 7 days in advance. Please includethe name of the requested medication and your preferred pharmacy. Please allow 3-4 days to be processed. Per [place] State Law, all controlled substance prescriptions must be filled within 30 days of being written. For those controlled substances allowing refills, pickup must occur within 30 days of last fill. We believe regular attendance is wright to your success in our program! If you are unable to keep your appointment we ask that you call us at least 24 hours in advance to cancel.This will allow us to offer the appointment time to another patient. Multiple missed appointments may lead to dismissal from the clinic. DLE ATTENDANT documented in this encounter Progress Notes * Mary Del Cid NP - 07/19/2023 3:00 PM CST Images from the original note were not included. Kaila is a 62 year old who is being evaluated via a billable video visit. How would you like to obtain your AVS? MyChart If the video visit is dropped, the invitation should be resent by: Text to cell phone: [phone] Will anyone else be joining your video visit? No Video-Visit Details Type of service: Video Visit converted to telephone visit as she was unable to connect Visit Start Time: 2:40 PM Visit End Time:3:26 PM Originating Location (pt. Location): Home Distant Location (provider location): On-site Platform used for Video Visit: Unable to complete video visit, converted to telephone. Is Pt currently in [place]? Yes NOTE: If Pt is not in [place], Appointment needs to be canceled and rescheduled. [facility] Date of Visit: 07/19/2023 Last visit: 04/18/2023 Original Consult: 12/09/2020 (Greg) Kaila Hernandez is a 62 year old female with PMH significant for sleep apnea, hyperlipidemia, hypothyroidism, nephrolithiasis, GERD, diabetic neuropathy, recurrent pancreatitis, ANTHONY and with chronic pain of neck, back, and right hip pain who is seen today for ongoing management of chronic pain. History: Neck pain- etiology likely related to cervical spondylosis, combination of foraminal stenosis and facet arthropathy, s/p C3-5 fusion. Back pain- likely related to multilevel degenerative changes, radicular pain in L5-S1 dermatome butmost significant central stenosis at L2-3, significant multilevel facet arthropathy as well, s/p L5-S1 hemilaminectomy. Per 02/03/[address] Barrett I also believe there is a component of arachnoiditis complicating her picture given the symptoms are inconsistent with her imaging and the amount of scarring we saw during the surgery. Right hip pain- hx of avascular necrosis, s/p hip replacement with Dr. Mayo on 08/06/2020 and righthip irrigation, debridement, and evacuation of hematoma with Dr. Mayo on 08/20/2020 at [facility]. Mental Health - the patient's mental health concerns, specifically ANTHONY, affect her experience of pain and contribute to her clinically significant distress. Recommendations from last visit: Continue current medications, continue suboxone to 8 mg per day in divided doses. Follow up in 3 months. - buprenorphine HCl-naloxone HCl (SUBOXONE) 4-1MG per film recently filled by Dr. Baxter, will bepicking up today. - Continue robaxin for muscle spasms, does not need refills. - Pain PT orders placed. Since last seen, Kaila reports: - Saw Sia Villar for Pain PT x 2 visits. - Had a fall about 3 weeks ago, she was walking out to get her mail and slipped and fell on her buttocks/small of her back. She notes that she was having more lower back pain prior to the fall though. This started sometime after her first PT visit (mid May). She has found PT to be helpful and she was able to increase her distance and increase the amount of time she can walk. - Lower back pain is worse centrally in her lower back, this is constant. Intermittently will have pain shoot down the back of her right or left leg. Does not ever go down both legs at the same time.Pain is worse with movement any type of movement. Has a heated massage chair, this is helpful. Pain is better with leaning forward. Feels like I am getting hit with a cattle prod. - Was seen at [facility] in May 27, given [place] #10. She - TENS in the past was helpful, but lost it in a move. She asks about a clinic that used hallucinogenic or ketamine. - No f/s/c. No bowel or bladder changes. - Continues to play video games and is feeling that this is really helping her to feel better and happier. Currently playing [employer], really likes that this allows her to complete puzzles and exercise her brain. - Will be getting new glasses with prisms. Recently diagnosed with cataracts and has cataract surgery scheduled for 08/03/23 & 08/24/23. - Buprenorphine dose 4/1 mg twice a day or 1/2 of the film 4 times per day. Typically takes it along with Robaxin 1000 mg TID prn and 1-2 vapes of medical cannabis per day. Generally feels that meds are not as helpful since pain worsened. - She continues visits with therapist at [facility], has found this helpful and feels that this is the best she has ever felt. Had a good holiday season. Her son is doing well in his sobriety from opioids, no relapse since completing 90 days of treatment. She has also quit smoking after 50 years!! - Has a 6th grandchild due in September 2023 and is looking forward to this. Pain description: Location: neck and lower back Quality: sharp, electrical at times Duration: comes and goes Severity/Intensity: 6/10 on average Aggravating factors include: twisting, bending, movement Relieving factors include: Rest, stretches, medications, these seem to work well and I do not needto do much more than that. Current pain medications: Suboxone 4/1 mg film up to 2 films a day in divided doses Robaxin 500-1000mg typically takes BID or TID Medical cannabis (THC dominant vapor and CBD cream) I don't like feeling stoned Other relevant medications: Pristiq 100mg daily for mood Seroquel 100mg at bedtime and 25mg TID prn Clonazepam 0.5mg BID prn Review of [place] Prescription Monitoring Program (BACKEND JAVA DEVELOPER): No concern for abuse or misuse of controlled medications based on this report. Viewed on 07/19/2023 Controlled medications (buprenorphine) are being prescribed by me Controlled medications (clonazepam) are being prescribed by: [place] [facility] last updated: 11/11/2022 Serum (blood) drug screen last updated: 11/25/2022 PAIN MANAGEMENT TREATMENT HISTORY 1. MEDICATIONS: Opiates: Fentanyl -helpful, hydrocodone -helpful, Dilaudid -helpful, oxycodone - helpful, buprenorphine helps NSAIDS: cannot take due to GI bleed Muscle Relaxants: Soma -helpful, Valium -helpful, Flexeril -not helpful, Robaxin - Somewhat helpful, Norflex -not helpful, tizanidine -not helpful, Skelaxin - not helpful Anti-depressants: Cymbalta -not helpful, SE, sweating, Pristiq -helpful Sleep aids: Ambien -helpful, prazosin -not helpful Anxiolytics: clonazepam -helpful, lorazepam -helpful Neuropathics: gabapentin -not helpful, it just doesn't work, Lyrica -not helpful, Topamax- not option due to kidney stones Topicals: lidocaine patches Adjuvant pain medications: medical cannabis- helps 2. PHYSICAL THERAPY: Pain PT x 2 visits May 2023. yes various times - Somewhat helpful 3. PAIN PSYCHOLOGY: yes with Dr. Benites several years ago -helpful, currently treating with [facility] 4. SURGERY: lumbar laminectomy L4-S1 with Dr. Barrett on 11/10/2021 C5-[address] Barrett on 05/18/[address] Mayo on 08/06/2020 and right hip irrigation, debridement, and evacuation of hematoma with Dr. Mayo on 08/20/2020 at [facility] cervical fusion 2002 L5-S1 hemilaminectomy 2004 5. INJECTIONS: several, most recent right hip injection fall 2020, prior to that years 6. COMPLEMENTARY THERAPY: Chiropractic: no Acupuncture: no TENS Unit: initally helped,lost device many years ago. Social History She reports that she quit smoking about 2 months ago. Her smoking use included cigarettes. She has a 50 pack-year smoking history. She has never used smokeless tobacco. She reports that she does not currently use alcohol. She reports that she does not use drugs. Social History Social History Narrative , 4 children, lives at home with , does not work outside the home. Children are 40, 39, 38, 37, still very involved in her children's lives. One son lives in [place], others are local. One son (disabled from long covid/ substance use disorder) and his live with her. 5 grandchildren, 18 (boy), 16 (girl) and 3 are 5 (twin girls + girl who is three days apart from the twins). For fun, enjoys video games, crossword puzzles, being on [place]. Last updated 02/14/2023 Medications and Allergies reviewed. Objective PSYCH: Alert and oriented times 3; coherent speech, normal rate and volume, able to articulate logical thoughts, able to abstract reason, no tangential thoughts, no hallucinations or delusions. Affect is normal. RESP: No cough, no audible wheezing, able to talk in full sentences Remainder of exam unable to be completed due to telephone visit. Imagin07/03/2021 MRI of cervical spine C2-C3: There is facet arthropathy bilaterally, uncinate hypertrophy bilaterally and a posterior broad-based disc-osteophyte complex with a superimposed small posterior central disc herniation (protrusion). No spinal canal stenosis. No foraminal stenosis on either side. No change from the comparisonMRI. C3-C4: There is facet arthropathy bilaterally, uncinate hypertrophy bilaterally and a posterior broad-based disc-osteophyte complex with a superimposed small posterior central disc herniation (protrusion). No spinal canal stenosis. No foraminal stenosis on either side. No change from the comparisonMRI. C4-C5: (Fused level) No spinal canal stenosis. No foraminal stenosis on the right. Uncinate arthropathy continues to result in moderate left foraminal stenosis. C5-C6: (Fused level) No spinal canal stenosis. No foraminal stenosis on either side. C6-C7: (Fused level) No spinal canal stenosis. No foraminal stenosis on either side. C7-T1: Normal disc height and contour. Mild facet arthropathy bilaterally. No spinal canal stenosis. No foraminal stenosis on either side. IMPRESSION: Postoperative and degenerative change of the cervical spine as detailed above. Moderatedegenerative neural foraminal stenosis on the left C4- C5. No other significant spinal canal or neural foraminal narrowing of the cervical spine. 04/08/2021 MRI of thoracic spine FINDINGS: There is good anatomic alignment of the thoracic spine. The vertebral body heights are well-maintained throughout and have appropriate signal characteristics for age. There is no abnormal signal or change in size of the thoracic spinal cord. There is no evidence of an intracanal mass or hemorrhage. The mid to lower thoracic disc spaces have a slight loss of disc space height and signal along with scattered Schmorl's formations. There is no significant canal compromise or neural foraminal narrowing noted throughout the thoracic region. The lungs visualized on this study are clear. The paraspinal soft tissues are unremarkable . IMPRESSION: 1. Good anatomic alignment and vertebral body heights maintained. 2. No abnormal signal thoracic spinal cord. 3. No significant canal compromise or neural foraminal narrowing throughout thoracic spine. MRI OF THE LUMBAR SPINE WITHOUT CONTRAST 11/15/2021 COMPARISON: Lumbar spine MRI 07/03/2021 FINDINGS: Postoperative changes of L4-S1 laminectomy with T1 hypointense and T2 hyperintense 2.7 x 2.4 x 2.2 cm fluid collection in the laminectomy bed extending into the posterior and left lateral epidural space at the level of L4- 5. Associated severe narrowing of the thecal sac with complete clumping of the cauda equina fibers. The collection does not demonstrates diffusion restriction. No thickened surrounding enhancing wall to suggest an abscess.There is nonmasslike heterogeneous enhancement within the postoperative soft tissues underlying the incision site. Bilateral there is increased epidural contrast enhancement from L1 through to sacrum. Indeterminantif this is from venous congestion and early postoperative stage versus developing phlegmon. Minimal degenerative retrolisthesis of L1 upon L2 and L2 upon L3 again noted. Alignment otherwise normal. Vertebral body heights normal. Modic 1 degenerative signal change in the opposing endplates at the L2-L3 level again noted. Marrow signal otherwise normal. No evidence for fracture or pathologic bone lesion. The tip of the conus medullaris is at L1 level which is within normal limits. There is no evidence for intrathecal abnormality. Level by level: T12-L1: Mild disc height loss. Mild facet arthropathy bilaterally. No neuroforaminal narrowing or significant spinal canal stenosis. L1-L2: Disc bulge. Moderate facet arthropathy bilaterally. Mild bilateral neural foraminal narrowing without spinal canal stenosis. L2-L3: Retrolisthesis, disc bulge, posterior epidural lipomatosis and facet hypertrophy. Resultant moderate concentric narrowing of the thecal sac. Bilateral mild neural foraminal narrowing. L3-L4: Disc bulge, posterior epidural lipomatosis and facet hypertrophy. Resultant moderate concentric narrowing of the thecal sac. Bilateral mild to moderate neural foraminal narrowing. L4-L5: As above. L5-S1: Postoperative changes of laminectomy. Posterior disc bulge and disc protrusion with degenerative facet arthropathy resulting in moderate severe bilateral neural foraminal narrowing and mild spinal canal stenosis. IMPRESSION: 1. Postoperative changes of L4-S1 laminectomy. Postoperative presumed seroma at the laminectomy bedextending to posterior epidural and left posterior lateral epidural space with compression of the thecal sac and cauda equina fibers at L4- 5. No peripheral enhancement, diffusion restriction or thickened wall to suggest an abscess formation. 2. Greater than expected diffuse enhancement of the epidural space from L1 through to sacrum. Indeterminant if this is venous congestion from compression of the above-mentioned seroma or early postoperative congestion or early postoperative epidural phlegmon. 3. Mild heterogeneous enhancement of the incision site, likely postoperative in nature but early wound infection cannot be excluded. 4. Multilevel degenerative facet arthropathy disc disease and posterior epidural lipomatosis with resultant spinal canal and foraminal narrowing as detailed above. Assessment & Plan Chronic pain syndrome S/P lumbar laminectomy S/P cervical spinal fusion Muscle spasm Unclear source of worsening pain. Advised in-person visit for evaluation. Counseled on obtaining opioids; filling and taking norco without calling or updating is a violation of the contract. I would not recommend opioids at this time, nor would I recommend treatment with hallucinogenic/ketamine. Okay to try TENS again, advised her to check with insurance. Order will be sent to her, also can purchase via online retailers. Her Hgb A1c is 8.9, so not a candidate for steroid injections. She is worried about going back to PT as it worsened her pain. She will plan to follow-up in person if not improving with TENS. Continue other medications unchanged. - buprenorphine HCl-naloxone HCl (SUBOXONE) 4-1 MG per film Dispense: 60 Film; Refill: 0 Mary Del Cid CNP-BC, PMGT-BC, AP-PMN [facility] BILLING TIME DOCUMENTATION: The total TIME spent on this patient on the date of the encounter/appointment was 46 minutes. TOTAL TIME INCLUDED Time spent preparing to see the patient by reviewing available medical information in the patient'smedical record, including relevant provider notes, laboratory work, and imaging 4 minutes Time spent face to face (or over the phone) with the patient 41 minutes Time spent documenting clinical information in Epic 1 minutes DLE ATTENDANT documented in this encounter Plan of Treatment Upcoming Encounters Date Type Department Care Team (Late st Contact Info) Description 08/18/2023 3:00 PM GRIDDLE ATTENDANT Office Visit [facility] [address] [place] [address] Katiana Read MD [address] [place] [address] documented as of this encounter Goals Goal [...] as of this encounter Visit Diagnoses Diagnosis Chronic pain syndrome- Primary S/P lumbar laminectomy S/P cervical spinal fusion Arthrodesis status Muscle spasm Spasm of muscle documented in this encounter Additional Health Concerns Problem Noted Date Diagnosed Date HbA1C Not In Goal 04/25/2023 Diabetes Self-Management Edu cation Needed to Optimize Self-Care Behaviors 04/25/2023 Assessment Noted Time PHQ-9 Depression Total Score: 7 06/23/20 23 1:54 PM GRIDDLE ATTENDANT documented as of this encounter Care Teams Airplane Woodworker Relationship Specialty [place] [address] [place] [address] PCP - General Family Medicine 05/18/22 Jovany Gonzalez MD [facility] [address] [facility] [address] [place], [place] [address] Orthopedics 02/15/17 Staci Woodward, DIRECTOR SANITATION BUREAU [facility] [address] [place], [place] [address] Nurse Practitioner Nurse Practitioner Psych/Mental Health 05/10/17 Reanna Smith, RD [facility] [address] [place], [place] [address] Clinical Technician Dietitian, Registered 07/25/19 Roshni Nascimento, RN Personal Advocate & Liaison (PAL) Family Medicine 08/18/20 Kiet Swain MD [address] [place], [place] [id number] [place], [place] [address] Referring Physician Psychiatry 09/19/20 Winsome Pike, VIDHI REMOTE OPERATIONS PRODUCER [address] [place] [address] Nurse Practitioner Psychiatry 09/19/20 Tori Hines, [facility] [address] [place] [address] Film Masker Film Masker - Clinical 09/19/20 Miranda Queen [facility] [address] [place] [address] Pharmacist Pharmacist 11/12/20 Marisel Armando MD [address] [place] [address] Gastroenterology 02/05/21 Wesley Barrett MD [address] [facility] [address] [place] [address] Assigned Neuroscience Provider 05/10/21 [place] [address] [place] [address] Assigned PCP 05/15/22 Katiana Read MD [address] [facility] [address] [place] [address] Assigned Endocrinology Provider 06/19/22 [place] [address] [place] [address] Nurse Practitioner Nurse Practitioner 10/18/22 [facility] [address] [place] [address] Pharmacist Pharmacist 10/19/22 Aubrey Jones MD [address] [place] [address] Cardiovascular Disease 03/28/23 Blanquita Morales Clinical Technician Diabetes Education 04/25/23 Aubrey Jones MD [address] [place] [address] Assigned Heart and Vascular Provider 05/07/23 documented as of this encounter
--- OUTSIDE RECORDS SUMMARY | 2023-08-03 09:55 | XMS_ITS | Encounter Summary ---
Author Name Unknown Organization [facility] Address [address] [place] [address]. [place] [address] Care Team Providers Care Superintendent Gas Distribution Name Role Phone Jovany Gonzalez MD Unavailable CrissyStaci jeong MICROBIOLOGY ANALYST Unavailable [phone] Unavailable [phone] Roshni Nascimento RN Unavailable Unavailable Kiet Swain MD Unavailable [phone] Winsome Pike APRN BURLAP MAN Unavailable [phone] Tori Hines [facility] Unavailable Miranda Queen [facility] Unavailable Unavailable Marisel Armando MD Unavailable Wesley Barrett MD Unavailable [phone] Dyan Fuentes MD Primary Care Provider [phone] Dyan Fuentes MD Unavailable [phone] Katiana Read MD Unavailable [phone] Mary Del Cid MICROBIOLOGY ANALYST Unavailable + [phone] Elham Stack [facility] Unavailable [phone] Aubrey Jones MD Unavailable [phone] Blanquita Morales Unavailable Unavailable Aubrey Jones MD Unavailable [phone] Encounter Details Date Type Department Care Team (Late st Contact Info) Description 07/13/2023 Telephone [facility] [address] [place] [address] Katiana Read MD [address] [place] [address] Social History Tobacco Use Types Packs/Day Years [...] week 06/20/2023 How often do you attend holiness or hoahaoism serv ices? Never 06/20/2023 Do you belong to any clubs o r organizations such as holiness groups, unions, fraternal or athletic groups, or [...] Answer Date Recorded PHQ-2 Score 1 06/23/2023 [facility] of Occupat ional Health - Occupational Stress [...] encounter Miscellaneous Notes * Telephone Encounter - Torri Benites RN - 07/15/2023 7:55 AM ASSISTANT BASEBALL COACH Pt was informed via [employer] Spoke to pt and confirmed that Pt read [employer] lab comment. Pt took first dose today STANT BASEBALL COACH * Telephone Encounter - Katiana Read MD - 07/14/2023 4:23 PM ASSISTANT BASEBALL COACH TSH is very high-- recommend to increase dose. TSH Date Value Ref Range Status 07/12/2023 74.10 (H) 0.30 - 4.20 uIU/mL Final 06/08/2021 35.36 (H) 0.40 - 4.00 mU/L Final 08/19/2020 0.70 0.40 - 4.00 mU/L Final STANT BASEBALL COACH * Telephone Encounter - Torri Benites RN - 07/14/2023 10:02 AM ASSISTANT BASEBALL COACH Spoke to pt- before able to inform pt of below pt had questions about taking medication. Pt verified she is taking medication alone first thing and then takes her other medications 30min after. Pt did state she takes supplements as well.Pt takes calcium,magnesium,vit d3, b complex. Before adjustingmedication, verify with provider if provider would like pt to separate supplements 4 hours after and recheck or increase medications? Please call [phone]- okay to [facility] STANT BASEBALL COACH * Telephone Encounter - Katiana Read MD - 07/14/2023 9:57 AM ASSISTANT BASEBALL COACH TSh is high. Currently she is taking levothyroxine 350 mcg/day. I would recommend to increase dose to 400 mcg/day (200+200). Recheck labs in 6-8 weeks. Can you please send updated prescription? TSH Date Value Ref Range Status 07/12/2023 74.10 (H) 0.30 - 4.20 uIU/mL Final 06/08/2021 35.36 (H) 0.40 - 4.00 mU/L Final 08/19/2020 0.70 0.40 - 4.00 mU/L Final STANT BASEBALL COACH * Telephone Encounter - Nhi Wong RN - 07/13/2023 8:57 AM CST I called the pt, she is taking 350 mcg of levothyroxine on an empty stomach daily, away from any other medications, food, or drink. STANT BASEBALL COACH * Telephone Encounter - Katiana Read MD - 07/13/2023 8:50 AM ASSISTANT BASEBALL COACH Latest Ref Rng 07/12/2023 11:07 AM [facility] TSH 0.30 - 4.20 uIU/mL 74.10 (H) Free T3 2.0 - 4.4 pg/mL Triiodothyronine (T3) 60 - 181 ng/dL FREE T4 0.90 - 1.70 ng/dL 0.53 (L) Legend: (H) High (L) Low She has 08/2023 appointment Can you check if she is taking thyroid medication consistently? And what is the dose? STANT BASEBALL COACH documented in this encounter Plan of Treatment Upcoming Encounters Date Type Department Care Team (Late st Contact Info) Description 08/18/2023 3:00 PM ASSISTANT BASEBALL COACH Office Visit [facility] [address] [place] [address] Katiana Read MD [address] [place], [place] [address] documented as of this encounter Goals Goal Patient Goal Type Associated Problems Recent Progress Patient-Stated? Author Establish Regular Follow-Ups with PCP Care Plan HbA1C Not In Goal No Blanquita Moralse Get HbA1C Level in Goal Care Plan [...] Total Score: 7 06/23/20 23 1:54 PM ASSISTANT BASEBALL COACH documented as of this encounter Care Teams Superintendent Gas Distribution Relationship Specialty [place] [address] [place] [address] PCP - General Family Medicine 05/18/22 Jovany Gonzalez MD [facility] [address] [facility] [address] [place] [address] Orthopedics 02/15/17 Staci Woodward MICROBIOLOGY ANALYST [place] [address] [place] [address] Nurse Practitioner Nurse Practitioner Psych/Mental Health 05/10/17 Reanna Smith, RD [place] [address] [place] [address] Sorority Mother Dietitian, Registered 07/25/19 Roshni Nascimento, RN Personal Advocate & Liaison (PAL) Family Medicine 08/18/20 Kiet Swain MD [address] [place] [phone] Referring Physician Psychiatry 09/19/20 Winsome Pike APRN BURLAP MAN [facility] [address] [address] Nurse Practitioner Psychiatry 09/19/20 Tori Hines, [facility] [address] [place] [address] [phone] Sulfur Burner Sulfur Burner - Clinical 09/19/20 Miranda Queen [facility] [address] [place] [address] Pharmacist Pharmacist 11/12/20 Marisel Armando MD [address] [place] [address] Gastroenterology 02/05/21 Wesley Barrett MD [address] [place] [address] [address] [place], [place] [phone] Assigned Neuroscience Provider 05/10/21 [place] [address] [place] [address] Assigned PCP 05/15/22 Katiana Read MD [address] [place] [address] Assigned Endocrinology Provider 06/19/22 [place] [address] [place] [address] Nurse Practitioner Nurse Practitioner 10/18/22 Elham Stack, [facility] [address] [place] [address] Pharmacist Pharmacist 10/19/22 Aubrey Jones MD [address] [place] [address] Cardiovascular Disease 03/28/23 Blanquita Morales Sorority Mother Diabetes Education 04/25/23 Aubrey Jones MD [address] [place] [address] Assigned Heart and Vascular Provider 05/07/23 documented as of this encounter
--- OUTSIDE RECORDS SUMMARY | 2023-08-03 09:55 | XMS_ITS | Encounter Summary ---
Author Name Unknown Organization [facility] Address [address] [place] [address]. [place] [address] Care Team Providers Care Provider Scribe Name Role Phone Jovany Gonzalez MD Unavailable CrissyStaci jeong SLEEP TECH Unavailable [phone] Unavailable [phone] Roshni Nascimento RN Unavailable Unavailable Kiet Swain MD Unavailable [phone] Winsome Pike APRN SUMAC TANNER Unavailable [phone] Tori Hnies [facility] Unavailable Miranda Queen [facility] Unavailable Unavailable Marisel Armando MD Unavailable Wesley Barrett MD Unavailable [phone] Dyan Fuentes MD Primary Care Provider [phone] Dyan Fuentes MD Unavailable [phone] Katiana Read MD Unavailable [phone] Mary Del Cid SLEEP TECH Unavailable + [phone] Elham Stack [facility] Unavailable [phone] Aubrey Jones MD Unavailable [phone] Blanquita Morales Unavailable Unavailable Aubrey Jones MD Unavailable [phone] Encounter Details Date Type Department Care Team (Late st Contact Info) Description 07/12/2023 MyC Medical Advice [facility] [address] [place] [address] Chidi Zabala Social History Tobacco Use Types Packs/Day Years [...] week 06/20/2023 How often do you attend buddhist or church serv ices? Never 06/20/2023 Do you belong to any clubs o r organizations such as buddhist groups, unions, fraternal or athletic groups, or [...] Answer Date Recorded PHQ-2 Score 1 06/23/2023 [facility] of Occupat ional Health - Occupational Stress [...] st Contact Info) Description 08/18/2023 3:00 PM COUNSELING PROGRAM LEADER Office Visit [place] [address] [place] [address] Katiana Read MD [address] [place] [address] documented as of this encounter Goals Goal [...] Total Score: 7 06/23/20 23 1:54 PM COUNSELING PROGRAM LEADER documented as of this encounter Care Teams Provider Scribe Relationship Specialty [place] [address] [place] [address] PCP - General Family Medicine 05/18/22 Jovany Gonzalez MD [facility] [address] [facility] [address] [place], [place] [address] Orthopedics 02/15/17 Staci Woodward, SLEEP TECH [place] [address] [place], [place] [phone] Nurse Practitioner Nurse Practitioner Psych/Mental Health 05/10/17 Reanna Smith, RD [facility] [address] [place], [place] [phone] Crop Pest Control Specialist Dietitian, Registered 07/25/19 Roshni Nascimento, RN Personal Advocate & Liaison (PAL) Family Medicine 08/18/20 Kite wSain MD [address] [place] [address] [phone] Referring Physician Psychiatry 09/19/20 Winsome Pike APRN SUMAC TANNER [address] [place] [address] Nurse Practitioner Psychiatry 09/19/20 Tori Hines, [facility] [address] [place] [address] Sales Support Engineer Sales Support Engineer - Clinical 09/19/20 Miranda Queen [facility] [address] [place] [address] Pharmacist Pharmacist 11/12/20 Marisel Armando MD [address] [place] [address] Gastroenterology 02/05/21 Wesley Barrett MD [address] [facility] [address] [place] [address] Assigned Neuroscience Provider 05/10/21 [place] [address] [place] [address] Assigned PCP 05/15/22 Katiana Read MD [address] [place] [address] Assigned Endocrinology Provider 06/19/22 [place] [address] [place] [address] Nurse Practitioner Nurse Practitioner 10/18/22 Elham Stack, [facility] [address] [place] [address] Pharmacist Pharmacist 10/19/22 Aubrey Jones MD [address] [place] [address] Cardiovascular Disease 03/28/23 Blanquita Morales Crop Pest Control Specialist Diabetes Education 04/25/23 Aubrey Jones MD [address] [place] [address] Assigned Heart and Vascular Provider 05/07/23 documented as of this encounter
--- OUTSIDE RECORDS SUMMARY | 2023-08-03 09:56 | XMS_ITS | Encounter Summary ---
Author Name Unknown Organization [facility] Address [address] [place] [address]. [place] [address] Care Team Providers Care Branch Store Manager Name Role Phone Jovany Gonzalez MD Unavailable CrissyStaci jeong NATIONAL SALES REPRESENTATIVE Unavailable [phone] Unavailable [phone] Roshni Nascimento RN Unavailable Unavailable Kiet Swain MD Unavailable [phone] Winsome Pike APRN TRANSMISSION ENGINEER Unavailable [phone] Tori Hines [facility] Unavailable Miranda Queen [facility] Unavailable Unavailable Marisel Armando MD Unavailable Wesley Barrett MD Unavailable [phone] Dyan Fuentes MD Primary Care Provider [phone] Dyan Fuentes MD Unavailable [phone] Katiana Read MD Unavailable [phone] Mary Del Cid NATIONAL SALES REPRESENTATIVE Unavailable + [phone] Elham Stack [facility] Unavailable [phone] Aubrey Jones MD Unavailable [phone] Blanquita Morales Unavailable Unavailable Aubrey Jones MD Unavailable [phone] Encounter Details Date Type Department Care Team (Latest Contact Info) Description 05/31/2023 Travel Social History Tobacco Use Types Packs/Day Years Used Date Smoking Tobacco: Every Day Cigarettes 1 50 Smokeless Tobacco: Never Alcohol Use Standard Drinks/Week Comments Not Currently 0 (1 standard drink = 0.6 oz pur e alcohol) Social Connection and Isolation Panel [NHANES] A nswer Date Recorded In a typical week, how many times do you talk on the phone with family, friends, or neighbors? Three times a week 10/17/19 How often do you get togethe r with friends or relatives? Once a week 10/16/2021 How often do you attend [facility] or baptism services? 1 to 4 times per year 10/16/2021 Do you belong to any clubs o r organizations such as protestant groups, unions, fraternal or athletic groups, or school groups? No 10/16/2021 Attends Club or Organization Meetings Not on amelie e 10/16/2021 Are you , , di vorced, , never , or living with a partner? 10/16/2021 AUDIT-C Answer Date Recorded Q1: How often do you have a drink containing alc ohol? Monthly or less 10/16/2021 Q2: How many drinks containi ng alcohol do you have on a typical day when you are drinking? 1 or 2 10/16/2021 Q3: How often do you have si x or more drinks on one occasion? Never 10/16/2021 PHQ-2 Answer Date Recorded PHQ-2 Score 2 05/12/2023 [facility] of Occupat ional Health - Occupational Stress Questionnaire Answer Date Recorded Do you feel stress - tense, restless, nervous, or anxious, or unable to sleep at night because your mind is troubled all the time - these days? To some extent 10/16/2021 Exercise Vital Sign Answer Date Recorde d On average, how many days pe r week do you engage in moderate to strenuous exercise (like a brisk walk)? 0 days 10/16/2021 On average, how many minutes do you engage in exercise at this level? 0 min 10/16/2021 Adolescent Education Answer Date Record ed Getting School Help Needed Not on file 04/06 Food Insecurity Answer Date Recorded Within the past 12 months, d id you worry that your food would run out before you got money to buy more? No 05/12/2023 Within the past 12 months, d id the food you bought just not last and you didn? t have money to get more? No 05/12/2023 Housing Stability Answer Date Recorded Do you have housing? Yes 05/12/2023 Are you worried about losing your housing? No 05/12/2023 Financial Resource Strain Answer Date R ecorded Within the past 12 months, h ave you or your family members you live with been unable to get utilities (heat, electricity) when it was really needed? No 05/12/2023 Transportation Needs Answer Date Record ed Within the past 12 months, h as lack of transportation kept you from medical appointments, getting your medicines, non-medical meetings or appointments, work, or from getting things that you need? No 05/12/2023 Interpersonal Safety Answer Date Record ed Do you feel physically and e motionally safe where you currently live? Yes 05/12/2023 Within the past 12 months, h ave you been hit, slapped, kicked or otherwise physically hurt by someone? No 05/12/2023 Within the past 12 months, h ave you been humiliated or emotionally abused in other ways by your partner or ex-partner? No 05/12/2023 Education Answer Date Recorded What is the [...] st Contact Info) Description 08/18/2023 3:00 PM PRODUCTION BORING MACHINE OPERATOR Office Visit [facility] [address] [place] [phone] Katiana Read MD [address] [place] [address] documented as of this encounter Goals Goal [...] Assessment Noted Time PHQ-9 Depression Total Score: 6 05/12/20 23 1:53 PM CDT documented as of this encounter Care Teams Branch Store Manager Relationship Specialty [place] [address] [place] [address] PCP - General Family Medicine 05/18/22 Jovany Gonzalez MD [facility] [address] [facility] [address] [place], [place] [phone] Orthopedics 02/15/17 Staci Woodward, NATIONAL SALES REPRESENTATIVE [place] [address] [place], [place] [phone] Nurse Practitioner Nurse Practitioner Psych/Mental Health 05/10/17 Reanna Smith, RD [place] [address] [place], [place] [phone] Leather Drier Dietitian, Registered 07/25/19 Roshni Nascimento, RN Personal Advocate & Liaison (PAL) Family Medicine 08/18/20 Kiet Swain MD [address] [place] [phone] Referring Physician Psychiatry 09/19/20 Winsome Pike APRN TRANSMISSION ENGINEER [address] [place] [address] Nurse Practitioner Psychiatry 09/19/20 Tori Hines, [facility] [address] [place] [phone] Loan Adviser Loan Adviser - Clinical 09/19/20 Miranda Queen [facility] [address] [place] [address] Pharmacist Pharmacist 11/12/20 Marisel Armando MD [address] [place] [phone] Gastroenterology 02/05/21 Wesley Barrett MD [address] [facility] [address] [place] [address] Assigned Neuroscience Provider 05/10/21 [place] [address] [place] [address] Assigned PCP 05/15/22 Katiana Read MD [address] [place], [place] [address] Assigned Endocrinology Provider 06/19/22 [place] [address] [place] [address] Nurse Practitioner Nurse Practitioner 10/18/22 Elham Stack, [facility] [address] [place] [address] Pharmacist Pharmacist 10/19/22 Aubrey Jones MD [address] [place] [address] Cardiovascular Disease 03/28/23 Blanquita Morales Leather Drier Diabetes Education 04/25/23 Aubrey Jones MD [address] [place] [address] Assigned Heart and Vascular Provider 05/07/23 documented as of this encounter
--- OUTSIDE RECORDS SUMMARY | 2023-08-03 09:56 | XMS_ITS | Encounter Summary ---
Author Name Unknown Organization [facility] Address [address] [place] [address]. [place] [address] Care Team Providers Care Retort Cooler Name Role Phone Jovany Gonzalez MD Unavailable [phone] CrissyStaci jeong FAMILY PRACTICE NURSE PRACTITIONER Unavailable [phone] Unavailable [phone] Roshni Nascimento RN Unavailable Unavailable Kiet Swain MD Unavailable [phone] Winsome Pike APRN MECHANICAL OXIDIZER Unavailable [phone] Tori Hines [facility] Unavailable Miranda Queen [facility] Unavailable Unavailable Marisel Armando MD Unavailable Wesley Barrett MD Unavailable [phone] Dyan Fuentes MD Primary Care Provider [phone] Dyan Fuentes MD Unavailable [phone] Katiana Read MD Unavailable [phone] Maurice Cee FAMILY PRACTICE NURSE PRACTITIONER Unavailable + [phone] Elham Stack [facility] Unavailable [phone] Aubrey Jones MD Unavailable [phone] Blanquita Morales Unavailable Unavailable Aubrey Jones MD Unavailable [phone] Reason for Visit * Reason Onset Date Comments Opioid Refill 06/20/2023 buprenorphine HC l-naloxone HCl (SUBOXONE) 4-1 MG per film Encounter Details Date Type Department Care Team (Late st Contact Info) Description 06/20/2023 Refill [facility] [place] [address] [facility] [address] [place] [address] [place] [address] [address] Opioid Refill (buprenorphine HCl-naloxone HCl (SUBOXONE) 4-1 MG per film) Social History Tobacco Use Types Packs/Day Years [...] How often do you attend methodist or latter day serv ices? Never 06/20/2023 Do you belong [...] Answer Date Recorded PHQ-2 Score 2 05/12/2023 [facility] - Occupational [...] encounter Miscellaneous Notes * Telephone Encounter - Maurice Cee NP - 06/20/2023 3:19 PM SUPPLIER MANAGER [place] Prescription Monitoring Program database was checked and prescription was e- prescribed to their preferred pharmacy. Encounter closed. Signed Prescriptions: Disp Refills buprenorphine HCl-naloxone HCl (SUBOXONE) *60 Film0 Sig: Place 0.5 Film under the tongue 4 times daily OK to fill and start 06/20/23 Authorizing Provider: MAURICE CEE NP LIER MANAGER * Telephone Encounter - Janine Argueta RN - 06/20/2023 1:01 PM SUPPLIER MANAGER Routing to provider to review medication prepped per below buprenorphine HCl-naloxone HCl (SUBOXONE) 4-1 MG per film , #60, Refill:0 Sig:Place 0.5 Film under the tongue 4 times daily Last picked up 05/17/23 with start on 05/17/23 Due: OK to fill and start 06/20/23 Per last OV note 04/18/23: Lower back and neck pain is feeling less limiting with the increased Buprenorphine dose to 4/1 mg twice a day. Typically takes it three times per day along with Robaxin 1000mg TID prn. Uses 1-2 vapes of medical cannabis per day with good control of symptoms. [facility] - [place], [place] - [address] [facility], [place] [address] Janine Raymundo RN Certified Registered Nurse Anesthetist [facility] LIER MANAGER * Telephone Encounter - Gildardo Yeung - 06/20/2023 12:44 PM CST Received refill request for: buprenorphine HCl-naloxone HCl (SUBOXONE) 4-1 MG per film Last dispensed from pharmacy on 05/17/2023. Patient's last office/virtual visit by prescribing provider on 04/18/2023. Next office/virtual appointment scheduled for 07/19/2023. Last urine drug screen date 11/25/2022. Current opioid agreement on file? Yes Date of opioid agreement: 11/11/2022. E-prescribe to: [facility] - [address] Will route to [facility] for review and preparation of prescription(s). LIER MANAGER * Telephone Encounter - Janine Argueta RN - 06/20/2023 11:30 AM SUPPLIER MANAGER Will route to [facility] for assistance with gathering opioid refill information. Janine Raymundo RN Certified Registered Nurse Anesthetist [facility] LIER MANAGER * Telephone Encounter - Blanquita Salguero - 06/20/2023 11:[address] [facility] Phone Message May a detailed message be left on voicemail: yes Reason for Call: Medication Refill Request Has the patient contacted the pharmacy for the refill? Yes Name of medication being requested: buprenorphine HCl-naloxone HCl (SUBOXONE) 4- 1 MG per film Provider who prescribed the medication: [facility]: [facility] - [address] Date medication is needed: within a few days Action Taken: Other: Pain Travel Screening: Not Applicable LIER MANAGER documented in this encounter Plan of Treatment Upcoming Encounters Date Type Department Care Team (Late st Contact Info) Description 08/18/2023 3:00 PM SUPPLIER MANAGER Office Visit [facility] [address] [place] [id number] Katiana Read MD [address] [place] [address] documented as of this encounter Goals Goal [...] this encounter Visit Diagnoses Diagnosis Chronic pain syndrome documented in this encounter Additional Health Concerns Problem Noted Date Diagnosed Date HbA1C Not In Goal 04/25/2023 Diabetes Self-Management Edu cation Needed to Optimize Self-Care Behaviors 04/25/2023 Assessment Noted Time PHQ-9 Depression Total Score: 6 05/12/20 23 1:53 PM CDT documented as of this encounter Care Teams Retort Cooler Relationship Specialty [place] [address] [place] [address] PCP - General Family Medicine 05/18/22 Jovany Gonzalez MD [facility] [address] [facility] [address] [place], [place] [phone] Orthopedics 02/15/17 Staci Woodward, FAMILY PRACTICE NURSE PRACTITIONER [place] [address] [place], [place] [address] Nurse Practitioner Nurse Practitioner Psych/Mental Health 05/10/17 Reanna Smith, RD [place] [address] [place], [place] [address] User Experience Analyst Dietitian, Registered 07/25/19 Roshni Nascimento, RN Personal Advocate & Liaison (PAL) Family Medicine 08/18/20 Kiet Swain MD [address] [place] [address] [id number] Referring Physician Psychiatry 09/19/20 Winsome Pike APRN MECHANICAL OXIDIZER [address] [place] [address] [id number] Nurse Practitioner Psychiatry 09/19/20 Tori Hines, [facility] [address] [place] [address] [phone] Merchandise Distributor Merchandise Distributor - Clinical 09/19/20 Miranda Queen [facility] [address] [place] [address] Pharmacist Pharmacist 11/12/20 Marisel Armando MD [address] [place], [place] [address] Gastroenterology 02/05/21 Wesley Barrett MD [address] [facility] [address] [place] [address] Assigned Neuroscience Provider 05/10/21 [place] [address] [place] [address] Assigned PCP 05/15/22 Katiana Read MD [address] [place], [place] [phone] Assigned Endocrinology Provider 06/19/22 [place] [address] [place] [address] Nurse Practitioner Nurse Practitioner 10/18/22 Elham Stack, [facility] [address] [place] [address] Pharmacist Pharmacist 10/19/22 Aubrey Jones MD [address] [place] [address] Cardiovascular Disease 03/28/23 Blanquita Morales User Experience Analyst Diabetes Education 04/25/23 Aubrey Jones MD [address] [place] [address] Assigned Heart and Vascular Provider 05/07/23 documented as of this encounter
--- OUTSIDE RECORDS SUMMARY | 2023-08-03 09:56 | XMS_ITS | Encounter Summary ---
Author Name Unknown Organization [facility] Address [address] [place] [address]. [place] [address] Care Team Providers Care Senior Applications Analyst Name Role Phone Jovany Gonzalez MD Unavailable CrissyStaci jeong FACE BURLER Unavailable [phone] Unavailable [phone] Roshni Nascimento RN Unavailable Unavailable Kiet Swain MD Unavailable [phone] Winsome Pike APRN SENIOR FIELD ENGINEER Unavailable [phone] Tori Hines [facility] Unavailable Miranda Queen [facility] Unavailable Unavailable Marisel Armando MD Unavailable Wesley Brarett MD Unavailable [phone] Dyan Fuentes MD Primary Care Provider [phone] Dyan Fuentes MD Unavailable [phone] Katiana Read MD Unavailable [phone] Mary Del Cid FACE BURLER Unavailable [phone] Elham Stack [facility] Unavailable [phone] Aubrey Jones MD Unavailable [phone] Blanquita Morales Unavailable Unavailable Aubrey Jones MD Unavailable [phone] Reason for Visit * Reason Comments Annual Visit Medicare annual well ness visit Medicare Visit COPD Struggling with her COPD. Encounter Details Date Type Department Care Team (Late st Contact Info) Description 06/23/2023 2:30 PM CABIN MAN Office Visit [facility] [address] [place] [address] [place] [address] [place] [address] Routine general medical examination at a health care facility (Primary Dx); Medicare annual wellness visit, subsequent; Need for vaccination against respiratory syncytial virus; Benign essential hypertension; Chronic obstructive pulmonary disease, unspecified COPD type (H); Type 2 diabetes mellitus without complication, with long-term current use of insulin (H); Other chronic pain; Postablative hypothyroidism; Hyperlipidemia LDL goal <100 Social History Tobacco Use Types Packs/Day Years Used Date Smoking Tobacco: Former Cigarettes 1 50 Q uit: 05/19/2023 Smokeless Tobacco: Never Tobacco Cessation:Counseling Given: Not [...] week 06/20/2023 How often do you attend pentecostal or anglican serv ices? Never 06/20/2023 Do you belong to any clubs o r organizations such as pentecostal groups, unions, fraternal or athletic groups, or [...] Answer Date Recorded PHQ-2 Score 1 06/23/2023 [facility] - [...] Sign Reading Time Taken Comments Blood Pressure 120/70 06/23/2023 2:17 PM CABIN MAN Pulse 62 06/23/2023 2:17 PM CABIN MAN Temperature 37.2 ??C (99 ??F) 06/23/2023 2:17 PM CABIN MAN Respiratory Rate 20 06/23/2023 2:17 PM CABIN MAN Oxygen Saturation 96% 06/23/2023 2:17 PM CABIN MAN Inhaled Oxygen Concentration - - Weight 113.9 kg (251 lb) 06/23/2023 2:17 PM CABIN MAN Height 172.7 cm (5' 8) 06/23/2023 2:17 PM CABIN MAN Body Mass Index 38.16 06/23/2023 2:17 PM CABIN MAN documented in this encounter Patient Instructions * Patient Instructions* Lynda Oliver, PATRICK - 06/23/2023 2:30 PM CABIN MAN Preventive Health Recommendations Female Ages 50 - 64 Yearly exam: See your health care provider every year in order to Review health changes. Discuss preventive care. Review your medicines if your doctor has prescribed any. Get a Pap test every three years (unless you have an abnormal result and your provider advises testing more often). If you get Pap tests with HPV test, you only need to test every 5 years, unless you have an abnormal result. You do not need a Pap test if your uterus was removed (hysterectomy) and you have not had cancer. You should be tested each year for STDs (sexually transmitted diseases) if you're at risk. Have a mammogram every 1 to 2 years. Have a colonoscopy at age 45, or have a yearly FIT test (stool test). These exams screen for colon cancer. Have a cholesterol test every 5 years, or more often if advised. Have a diabetes test (fasting glucose) every three years. If you are at risk for diabetes, you should have this test more often. If you are at risk for osteoporosis (brittle bone disease), think about having a bone density scan (DEXA). Shots: Get a flu shot each year. Get a tetanus shot every 10 years. Nutrition: Eat at least 5 servings of fruits and vegetables each day. Eat whole-grain bread, whole-wheat pasta and brown rice instead of white grains and rice. Get adequate Calcium and Vitamin D. Lifestyle Exercise at least 150 minutes a week (30 minutes a day, 5 days a week). This will help you control your weight and prevent disease. Limit alcohol to one drink per day. No smoking. Wear sunscreen to prevent skin cancer. See your dentist every six months for an exam and cleaning. See your eye doctor every 1 to 2 years. N MAN documented in this encounter Progress Notes * Dyan Fuentes MD - 06/23/2023 2:30 PM CST SUBJECTIVE: Kaila is a 62 year old, presenting for the following: Annual Visit (Medicare annual wellness visit), Medicare Visit, and COPD (Struggling with her COPD. ) 06/23/2023 2:16 PM Additional Questions Roomed by Roberta Petersen CMA Accompanied by Self Are you in the first 12 months of your Medicare coverage? No Healthy Habits: In general, how would you rate your overall health? Good Frequency of exercise: 2-3 days/week Duration of exercise: 15-30 minutes Do you usually eat at least 4 servings of fruit and vegetables a day, include whole grains & fiber and avoid regularly eating high fat or junk foods? Yes Taking medications regularly: Yes Medication side effects: None Ability to successfully perform activities of daily living: No assistance needed Home Safety: Throw rugs in the hallway Hearing Impairment: Difficulty following a conversation in a noisy restaurant or crowded room, feelthat people are mumbling or not speaking clearly, need to ask people to speak up or repeat themselves, find that men's voices are easier to understand than woman's and difficulty understanding soft or whispered speech In the past 6 months, have you been bothered by leaking of urine? Yes In general, how would you rate your overall mental or emotional health? Good Additional concerns today: No Today's PHQ-9 Score: 06/23/2023 1:54 PM PHQ-9 SCORE PHQ-9 Total Score MyChart 7 (Mild depression) PHQ-9 Total Score 7 Have you ever done Advance Care Planning? (For example, a Health Directive, POLST, or a discussion with a medical provider or your loved ones about your wishes): No, advance care planning informationgiven to patient to review. Patient plans to discuss their wishes with loved ones or provider. Fall risk- yes Cognitive Screening 1) Repeat 3 items (Leader, Season, Table) 2) Clock draw: NORMAL 3) 3 item recall: Recalls 3 objects Results: 3 items recalled: COGNITIVE IMPAIRMENT LESS LIKELY Mini-CogTM Copyright S [employer]. Licensed by the author for use in [facility] [employer]; reprinted with permission (carlita@[facility]). All rights reserved. Do you have sleep apnea, excessive snoring or daytime drowsiness? : yes Reviewed and updated as needed this visit by clinical staff Allergies Meds Reviewed and updated as needed this visit by Provider Social History Tobacco Use Smoking status: Former Packs/day: 1.00 Years: 50.00 Additional pack years: 0.00 Total pack years: 50.00 Types: Cigarettes Quit date: 05/19/2023 Years since quittin.0 Smokeless tobacco: Never Substance Use Topics Alcohol use: Not Currently 06/20/2023 11:23 AM Alcohol Use Prescreen: >3 drinks/day or >7 drinks/week? No Do you have a current opioid prescription? No - Suboxone Do you use any other controlled substances or medications that are not prescribed by a provider? Cannabis Current providers sharing in care for this patient include: Patient Care Team: Dyan Fuentes MD as PCP - General (Family Medicine) Jovany Gonzalez MD as MD (Orthopedics) Staci Woodward NP as Nurse Practitioner (Nurse Practitioner Psych/Mental Health) Reanna Smith RD as Mechanical Commissioning Engineer (Dietitian, Registered) Roshni Nascimento RN as Personal Advocate & Liaison (PAL) (Family Medicine) Kiet Swain MD as Referring Physician (Psychiatry) Winsome Pike APRN CNP as Nurse Practitioner (Psychiatry) Tori Hines [facility] as Ruching Machine Operator (Ruching Machine Operator - Clinical) Miranda Queen, [facility] as Pharmacist (Pharmacist) Marisel Armando MD as MD (Gastroenterology) Wesley Barrett MD as Assigned Neuroscience Provider Dyan Fuentes MD as Assigned PCP Katiana Read MD as Assigned Endocrinology Provider Mary Del Cid NP as Nurse Practitioner (Nurse Practitioner) Elham Stack [facility] as Pharmacist (Pharmacist) Aubrey Jones MD as MD (Cardiovascular Disease) Blanquita Morales as Mechanical Commissioning Engineer (Diabetes Education) Aubrey Jones MD as Assigned Heart and Vascular Provider The following health maintenance items are reviewed in Epic and correct as of today: Health Maintenance Topic Date Due DIABETIC FOOT EXAM 10/25/2019 RSV VACCINE ( & 60+) (1 - 1-dose 60+ series) Never done ZOSTER IMMUNIZATION (2 of 2) 07/23/2020 HF ACTION PLAN 03/15/2021 EYE EXAM 05/12/2022 MAMMO SCREENING 12/02/2022 BMP 06/12/2023 MICROALBUMIN 06/12/2023 MEDICARE ANNUAL WELLNESS VISIT 06/14/2023 DEPRESSION 12 MO INDEX REPEAT PHQ-9 07/07/2023 LIPID 10/05/2023 LUNG CANCER SCREENING 12/04/2023 ALT 12/12/2023 CBC 12/12/2023 A1C 12/23/2023 PHQ-9 12/23/2023 ANNUAL REVIEW OF HM ORDERS 05/12/2024 ADVANCE CARE PLANNING 06/23/2028 DTAP/TDAP/TD IMMUNIZATION (3 - Td or Tdap) 07/18/2030 COLORECTAL CANCER SCREENING 10/28/2032 TSH W/FREE T4 REFLEX Completed SPIROMETRY Completed HEPATITIS C SCREENING Completed HIV SCREENING Completed COPD ACTION PLAN Completed DEPRESSION ACTION PLAN Completed INFLUENZA VACCINE Completed Pneumococcal Vaccine: Pediatrics (0 to 5 Years) and At-Risk Patients (6 to 64 Years) Completed COVID-19 Vaccine Completed IPV IMMUNIZATION Aged Out HPV IMMUNIZATION Aged Out MENINGITIS IMMUNIZATION Aged Out RSV MONOCLONAL ANTIBODY Aged Out PAP Discontinued HEPATITIS A IMMUNIZATION Discontinued Patient Active Problem List Diagnosis Vitamin B12 deficiency Neurogenic bladder Recurrent pancreatitis Hypertriglyceridemia Hereditary and idiopathic peripheral neuropathy Degeneration of intervertebral disc, site unspecified Esophageal reflux Vitamin D deficiency Chronic pain Hyperlipidemia LDL goal <100 Nephrolithiasis Diabetic neuropathy (H) Tobacco dependence Anxiety COPD (chronic obstructive pulmonary disease) (H) Moderate episode of recurrent major depressive disorder (H) Benign essential hypertension Opioid dependence (H) NAFLD (nonalcoholic fatty liver disease) Avascular necrosis of bone of hip (H) Type 2 diabetes mellitus without complication, without long-term current use of insulin (H) Nausea with vomiting Migraine Postablative hypothyroidism Recurrent Clostridium difficile diarrhea MARIELLE (obstructive sleep apnea) Chronic diastolic congestive heart failure (H) Insomnia, unspecified type S/P total hip arthroplasty Weakness of right foot At risk for healthcare associated infection Generalized muscle weakness Hypokalemia Intractable abdominal pain Generalized anxiety disorder Abdominal pain, generalized Prolonged Q-T interval on ECG Cervical spondylosis with myelopathy S/P laminectomy Postoperative back pain Pancolitis (H) Nausea and vomiting, unspecified vomiting type Morbid obesity (H) Hepatic steatosis Hyperglycemia Pulmonary nodules Elevated troponin Acute on chronic pancreatitis (H) Hypothyroidism, unspecified type Chest pain, unspecified type Past Surgical History: Procedure Laterality Date APPENDECTOMY OPEN ARTHROPLASTY HIP Right 08/06/2020 Procedure: Right total hip arthroplasty; Surgeon: Lencho Mayo MD; Location: OR ARTHROSCOPY ANKLE Right 12/13/2017 Procedure: RIGHT ANKLE ARTHROSCOPY; Surgeon: Jovany Gonzalez MD; Location: [facility];Service: BACK SURGERY Lumbar and cervical CARDIAC CATHETERIZATION COLONOSCOPY N/A 10/20/2015 Procedure: COMBINED COLONOSCOPY, SINGLE OR MULTIPLE BIOPSY/POLYPECTOMY BY BIOPSY; Surgeon: Kwaku Colón MD; Location: GI COLONOSCOPY N/A 05/09/2017 Procedure: COLONOSCOPY;; Surgeon: Lindsay Juares MD; Location: OR COLONOSCOPY N/A 10/28/2022 Procedure: COLONOSCOPY with biopsies; Surgeon: Jeffry Baxter MD; Location: OR CYSTOCELE REPAIR DISCECTOMY, FUSION CERVICAL ANTERIOR ONE LEVEL, COMBINED N/A 05/18/2021 Procedure: Anterior cervical discectomy and fusion, cervical 4-5; Surgeon: Wesley Barrett MD; Location: OR ESOPHAGOSCOPY, GASTROSCOPY, DUODENOSCOPY (EGD), COMBINED N/A 05/09/2017 Procedure: COMBINED ESOPHAGOSCOPY, GASTROSCOPY, DUODENOSCOPY (EGD); ESOPHAGOSCOPY, GASTROSCOPY, DUODENOSCOPY (EGD) with biopsies, COLONOSCOPY; Surgeon: Lindsay Juares MD; Location: [facility] OR ESOPHAGOSCOPY, GASTROSCOPY, DUODENOSCOPY (EGD), COMBINED N/A 09/06/2018 Procedure: COMBINED ENDOSCOPIC ULTRASOUND, ESOPHAGOSCOPY, GASTROSCOPY, DUODENOSCOPY (EGD); Surgeon:Zee Sims MD; Location: GI ESOPHAGOSCOPY, GASTROSCOPY, DUODENOSCOPY (EGD), COMBINED N/A 05/07/2019 Procedure: ESOPHAGOGASTRODUODENOSCOPY, WITH ENDOSCOPIC ULTRASOUND GUIDANCE; Surgeon: Yaya Washington MD; Location: [facility] OR ESOPHAGOSCOPY, GASTROSCOPY, DUODENOSCOPY (EGD), COMBINED 07/11/2016 [...] FIBULAR FRACTURE; Surgeon: Jovany Gonzalez MD; Location: [facility] OR; Service: rectocele and cystocel repairs REMOVE HARDWARE LOWER EXTREMITY Right 12/13/2017 Procedure: REMOVAL OF SYNDESMOSIS SCREWS, SUHAS; Surgeon: Jovany Gonzalez MD; Location: [facility] OR; Service: REPAIR RECTOCELE TONSILLECTOMY ZC NONSPECIFIC PROCEDURE 06/2001 Colonoscopy - neg -- abstracted 12/26/01 Social History Tobacco Use Smoking status: Former Packs/day: 1.00 Years: 50.00 Additional pack years: 0.00 Total pack years: 50.00 Types: Cigarettes Quit date: 05/19/2023 Years since quittin.0 Smokeless tobacco: Never Substance Use Topics Alcohol use: Not Currently Family History Problem Relation Age of Onset Colon Cancer Mother Other - See Comments Father murdered Liver Disease Father Substance Abuse Father Substance Abuse Sister Substance Abuse Sister FHS-7: No data to display Mammogram Screening: Recommended mammography every 1-2 years with patient discussion and risk factor consideration Pertinent mammograms are reviewed under the imaging tab. Review of Systems Constitutional: Negative for chills and fever. HENT: Positive for hearing loss. Negative for congestion, ear pain and sore throat. Eyes: Positive for pain and visual disturbance. Respiratory: Positive for shortness of breath. Negative for cough. Cardiovascular: Positive for peripheral edema. Negative for chest pain and palpitations. Gastrointestinal: Negative for abdominal pain, constipation, diarrhea, heartburn, hematochezia and nausea. Breasts: Negative for tenderness, breast mass and discharge. Genitourinary: Negative for dysuria, frequency, genital sores, hematuria, pelvic pain, urgency, vaginal bleeding and vaginal discharge. Musculoskeletal: Positive for arthralgias, joint swelling and myalgias. Skin: Negative for rash. Neurological: Positive for weakness. Negative for dizziness, headaches and paresthesias. Psychiatric/Behavioral: Negative for mood changes. The patient is nervous/anxious. OBJECTIVE: BP 120/70 (BP Location: Right arm, Patient Position: Sitting, Cuff Size: Adult Large) Pulse 62 Temp 99 ??F (37.2 ??C) (Oral) Resp 20 Ht 1.727 m (5' 8) Wt 113.9 kg (251 lb) LMP (LMP Unknown) SpO2 96% BMI 38.16 kg/m?? Estimated body mass index is 38.16 kg/m?? as calculated from the following: Height as of this encounter: 1.727 m (5' 8). Weight as of this encounter: 113.9 kg (251 lb). Physical Exam GENERAL: healthy, alert and no distress EYES: Eyes grossly normal to inspection, PERRL and conjunctivae and sclerae normal HENT: ear canals and TM's normal, nose and mouth without ulcers or lesions NECK: no adenopathy, no asymmetry, masses, or scars and thyroid normal to palpation RESP: lungs clear to auscultation - no rales, rhonchi or wheezes CV: regular rate and rhythm, normal S1 S2, no S3 or S4, no murmur, click or rub, no peripheral edema and peripheral pulses strong MS: no gross musculoskeletal defects noted, no edema SKIN: no suspicious lesions or rashes NEURO: Normal strength and tone, mentation intact and speech normal PSYCH: mentation appears normal, affect normal/bright Diagnostic Test Results: Labs reviewed in Epic ASSESSMENT / PLAN: 1. Routine general medical examination at a health care facility 2. Medicare annual wellness visit, subsequent 3. Need for vaccination against respiratory syncytial virus 4. Benign essential hypertension - controlled, continue current - BASIC METABOLIC PANEL 5. Chronic obstructive pulmonary disease, unspecified COPD type (H) - requesting nebulizer treatments - script sent. - respiratory syncytial virus vaccine, bivalent (ABRYSVO) injection; Inject 0.5 mLs into the muscleonce for 1 dose Dispense: 1 each; Refill: 0 - Nebulizer and Supplies Order for DME - ONLY FOR DME - ipratropium - albuterol 0.5 mg/2.5 mg/3 mL (DUONEB) 0.5-2.5 (3) MG/3ML neb solution; Take 1 vial (3 mLs) by nebulization every 6 hours as needed for shortness of breath, wheezing or cough Dispense:90 mL; Refill: 1 6. Type 2 diabetes mellitus without complication, with long-term current use of insulin (H) - following with endo, will make insulin change - increase dose - as her BS have been running high. Has endo follow up in 2 weeks. - Albumin Random Urine Quantitative with Creat Ratio; Future - insulin glargine (BASAGLAR KWIKPEN) 100 UNIT/ML pen; Inject 40 Units Subcutaneous every morning Dispense: 15 mL; Refill: 1 - Hemoglobin A1c - Albumin Random Urine Quantitative with Creat Ratio 7. Other chronic pain - following with pain clinic - Drug Abuse Screen Panel 13, Urine (Pain Care Map) - lab collect 8. Postablative hypothyroidism - following with endo, completing their orders today - TSH with free T4 reflex 9. Hyperlipidemia LDL goal <100 - Lipid panel reflex to direct LDL Fasting; Future - Lipid panel reflex to direct LDL Fasting COUNSELING: Reviewed preventive health counseling, as reflected in patient instructions BMI: Estimated body mass index is 38.16 kg/m?? as calculated from the following: Height as of this encounter: 1.727 m (5' 8). Weight as of this encounter: 113.9 kg (251 lb). She reports that she quit smoking about 5 weeks ago. Her smoking use included cigarettes. She has a50.00 pack-year smoking history. She has never used smokeless tobacco. Appropriate preventive services were discussed with this patient, including applicable screening asappropriate for fall prevention, nutrition, physical activity, Tobacco-use cessation, weight loss and cognition. Checklist reviewing preventive services available has been given to the patient. Reviewed patients plan of care and provided an AVS. The Basic Care Plan (routine screening as documented in Health Maintenance) for Kaila meets the Care Plan requirement. This Care Plan has been established and reviewed with the Patient. Dyan Fuentes MD [facility] Answers submitted by the patient for this visit: Patient Health Questionnaire (Submitted on 06/23/2023) If you checked off any problems, how difficult have these problems made it for you to do your work,take care of things at home, or get along with other people?: Somewhat difficult PHQ9 TOTAL SCORE: 7 N MAN documented in this encounter Plan of Treatment Upcoming Encounters Date Type Department Care Team (Late st Contact Info) Description 08/18/2023 3:00 PM CABIN MAN Office Visit [facility] [address] [place] [address] Katiana Read MD [address] [place] [address] documented as of this encounter Goals Goal [...] Blanquita Morales documented as of this encounter Procedures Procedure Name Priority Date/Time Associated Diagnosis Comments URINE DRUG SCREEN CLINIC Routine 06/23/2023 3:28 PM CABIN MAN Other chronic pain ALBUMIN RANDOM URINE QUANTITATIVE Routine 06/23/2023 3:28 PM CABIN MAN Type 2 diabetes mellitus without complication, with long-term current use of insulin (H) LIPID REFLEX TO DIRECT LDL PANEL Routine 06/23/2023 3:28 PM CABIN MAN Hyperlipidemia LDL goal <100 HEMOGLOBIN A1C Routine 06/23/2023 3:28 PM CABIN MAN Type 2 diabetes mellitus without complication, with long-term current use of insulin (H) BASIC METABOLIC PANEL Routine 06/23/2023 3:28 PM CABIN MAN Benign essential hypertension documented in this encounter Results * (ABNORMAL) Drug Abuse Screen Panel 13, Urine (Pain Care Map) - lab collect (06/23/2023 3:28 PM CABIN MAN) [facility] Cannabinoids (22-wtx-6-carboxy -9-THC) Detected(A ) Not Detected, Indeterminate 06/24/2023 2:08 PM CABIN MAN [facility] Comment: Cutoff for a positive cannabinoid is greater than 50 ng/ml. This is an unconfirmed screening result to be used for medical purposes only. Phencyclidine Not Detected Not Detected, Indeterminate 06/24/2023 2:08 PM CABIN MAN [facility] Comment:Cutoff for a negativ e PCP is 25 ng/mL or less. Cocaine (Benzoylecgonine) Not Detected Not Detected, Indeterminate 06/24/2023 2:08 PM CABIN MAN [facility] Comment:Cutoff for a negativ e cocaine is 150 ng/ml or less. Methamphetamine (d-Methamphetamin e) Not Detected Not Detected, Indeterminate 06/24/2023 2:08 PM CABIN MAN [facility] Comment:Cutoff for a negativ e methamphetamine is 500 ng/ml or less. Opiates (Morphine) Not Detected Not Detected, Indeterminate 06/24/2023 2:08 PM CABIN MAN [facility] Comment:Cutoff for a negativ e opiate is 100 ng/ml or less. Amphetamine (d-Amphetamine) Not Detected Not Detected, Indeterminate 06/24/2023 2:08 PM CABIN MAN [facility] Comment:Cutoff for a negativ e amphetamine is 500 ng/mL or less. Benzodiazepines (Nordiazepam) Not Detected Not Detected, Indeterminate 06/24/2023 2:08 PM CABIN MAN [facility] Comment:Cutoff for a negativ e benzodiazepine is 150 ng/ml or less. Tricyclic Antidepressants (Desipramine) Not Detected Not Detected, Indeterminate 06/24/2023 2:08 PM CABIN MAN [facility] Comment:Cutoff for a negativ e tricyclic antidepressant is 300 ng/ml or less. Methadone Not Detected Not Detected, Indeterminate 06/24/2023 2:08 PM CABIN MAN [facility] Comment:Cutoff for a negativ e methadone is 200 ng/ml or less. Barbiturates (Butalbital) Not Detected Not Detected, Indeterminate 06/24/2023 2:08 PM CABIN MAN [facility] Comment:Cutoff for a negativ e barbituate is 200 ng/ml or less. Oxycodone Not Detected Not Detected, Indeterminate 06/24/2023 2:08 PM CABIN MAN [facility] Comment:Cutoff for a negativ e oxycodone is 100 ng/mL or less. Buprenorphine Detected(A ) Not Detected, Indeterminate 06/24/2023 2:08 PM CABIN MAN [facility] Comment: Cutoff for a positive buprenorphine is greater than 10 ng/ml. This is an unconfirmed screening result to be used for medical purposes only. Urine MID-STREAM URINE SPECIMEN / Unknown Non-blood Collection / Unknown 06/23/2023 3:28 PM CABIN MAN 06/23/2023 3:34 PM CABIN MAN Dyan Fuentes MD LAB - URINE ORDER [facility] [address] Lab (no room number, 1st floor of clinic) [place] [address], [place] [phone] * (ABNORMAL) Hemoglobin A1c (06/23/2023 3:28 PM CABIN MAN) Hemoglobin A1C 8.9(H) 0.0 - 5.6 % 06/23/2023 3:49 PM CABIN MAN LABORATORY Blood BLOOD SPECIMEN / Unknown Venipuncture / Unknown 06/23/2023 3:28 PM CABIN MAN 06/23/2023 3:34 PM CABIN MAN Narrative LABORATORY - 06/23/2023 3:49 PM CABIN MAN Results confirmed by repeat test. Dyan Fuentes MD LAB - BLOOD ORDER [facility] [id number] [place] [address] Lab (no room number, 1st floor of clinic) [place] [address], [place] [phone] * (ABNORMAL) Lipid panel reflex to direct LDL Fasting (06/23/2023 3:28 PM CABIN MAN) Cholesterol 244(H) <200 mg/dL 06/24/2023 6:12 PM CABIN MAN [facility] Triglycerides 168(H) <150 mg/dL 06/24/2023 6:12 PM CABIN MAN [facility] Direct Measure HDL 75 >=50 mg/dL 06/24/2023 6:12 PM CABIN MAN [facility] LDL Cholesterol Calculated 135(H) <=100 mg/dL 06/24/2023 6:12 PM CABIN MAN [facility] Non HDL Cholesterol 169(H) <130 mg/dL 06/24/2023 6:12 PM CABIN MAN [facility] Patient Fasting > 8hrs? Yes 06/24/2023 6:12 PM CABIN MAN [facility] Blood BLOOD SPECIMEN / Unknown Venipuncture / Unknown 06/23/2023 3:28 PM CABIN MAN 06/23/2023 3:34 PM CABIN MAN Narrative [facility] - 06/24/2023 6:12 PM CABIN MAN Cholesterol Desirable: ??<200 mg/dL Triglycerides Normal: ??Less [...] LAB - BLOOD ORDER LENA [facility] Core Lab [address], [address] [id number], [facility] [phone] * Albumin Random Urine Quantitative with Creat Ratio (06/23/2023 3:28 PM CABIN MAN) Creatinine Urine mg/dL 42.4 mg/dL 06/24/2023 6:21 PM CABIN MAN [facility] Comment:The reference ranges have not been established in urine creatinine. The results should be integrated into the clinical context for interpretation. Albumin Urine mg/L <12.0 mg/L 2022 6:21 PM CABIN MAN [facility] Comment:The reference ranges have not been established in urine albumin. The results should be integrated into the clinical context for interpretation. Albumin Urine mg/g Cr 06/24/2023 6:21 PM CABIN MAN [facility] Comment: Unable to calculate, urine [...] control, and institution of therapy with an rupnobgoskp-nijnpdknsy-mbdkzn (MACK) inhibitor (if the patient can tolerate it). ?? Urine MID-STREAM URINE SPECIMEN / Unknown Non-blood Collection / Unknown 06/23/2023 3:28 PM CABIN MAN 06/23/2023 3:34 PM CABIN MAN Dyan Fuentes MD LAB - URINE ORDER LENA [facility] Core Lab [address], [address] [place] [id number], [facility] [phone] * (ABNORMAL) BASIC METABOLIC PANEL (06/23/2023 3:28 PM CABIN MAN) [facility] Sodium 139 135 - 145 mmol/L 06/24/2023 6:12 PM CABIN MAN [facility] Comment:Reference intervals for this test were updated on 04/05/2023 to more accurately reflect our healthy population. There may be differences in the flagging of prior results with similar values performed with this method. Interpretation of those prior results can be made in the context of the updated reference intervals. Potassium 4.5 3.4 - 5.3 mmol/L 06/24/2023 6:12 PM CABIN MAN [facility] Chloride 101 98 - 107 mmol/L 06/24/2023 6:12 PM CABIN MAN [facility] Carbon Dioxide (CO2) 27 22 - 29 mmol/L 06/24/2023 6:12 PM CABIN MAN [facility] Anion Gap 11 7 - 15 mmol/L 06/24/2023 6:12 PM CABIN MAN [facility] Urea Nitrogen 14.3 8.0 - 23.0 mg/dL 06/24/2023 6:12 PM CABIN MAN [facility] Creatinine 1.28(H) 0.51 - 0.95 mg/dL 06/24/2023 6:12 PM CABIN MAN [facility] GFR Estimate 47(L) >60 mL/min/1. 73m2 06/24/2023 6:12 PM CABIN MAN [facility] Calcium 9.9 8.8 - 10.2 mg/dL 06/24/2023 6:12 PM CABIN MAN [facility] Glucose 156(H) 70 - 99 mg/dL 06/24/2023 6:12 PM CABIN MAN [facility] Blood BLOOD SPECIMEN / Unknown Venipuncture / Unknown 06/23/2023 3:28 PM CABIN MAN 06/23/2023 3:34 PM CABIN MAN Dyan Fuentes MD LAB - BLOOD ORDER LENA [facility] Core Lab [address], [address] [place] [id number], [facility] [phone] documented in this encounter Visit Diagnoses Diagnosis Routine general medical examination at a health care facility- Primary Medicare annual wellness visit, subsequent Routine general medical examination at a health care facility Need for vaccination against respiratory syncytial virus Need for prophylactic vaccination and inoculation against respiratory syncytial virus Benign essential hypertension Essential hypertension, benign Chronic obstructive pulmonary disease, unspecified COPD type (H) Type 2 diabetes mellitus without complication, with long-term current use of insulin (H) Other chronic pain Postablative hypothyroidism Other postablative hypothyroidism Hyperlipidemia LDL goal <100 Other and unspecified hyperlipidemia documented in this encounter Additional Health Concerns Problem Noted Date Diagnosed Date HbA1C Not In Goal 04/25/2023 Diabetes Self-Management Edu cation Needed to Optimize Self-Care Behaviors 04/25/2023 Assessment Noted Time PHQ-9 Depression Total Score: 7 06/23/20 23 1:54 PM CABIN MAN documented as of this encounter Care Teams Senior Applications Analyst Relationship Specialty [place] [address] [place] [address] PCP - General Family Medicine 05/18/22 Jovany Gonzalez MD [facility] [address] [facility] [address] [place], [place] [phone] Orthopedics 02/15/17 Staci Woodward, FACE BURLER [place] [address] [place], [place] [phone] Nurse Practitioner Nurse Practitioner Psych/Mental Health 05/10/17 Reanna Smith, RD [place] [address] [place], [place] [phone] Mechanical Commissioning Engineer Dietitian, Registered 07/25/19 Roshni Nascimento, RN Personal Advocate & Liaison (PAL) Family Medicine 08/18/20 Kiet Swain MD [address] [place] [address] [id number] Referring Physician Psychiatry 09/19/20 Winsome Pike APRN SENIOR FIELD ENGINEER [address] [place] [address] Nurse Practitioner Psychiatry 09/19/20 Tori Hines, [facility] [address] [place] [address] [phone] Ruching Machine Operator Ruching Machine Operator - Clinical 09/19/20 Miranda Queen, [facility] [address] [place] [address] Pharmacist Pharmacist 11/12/20 Marisel Armando MD [address] [place] [address] [phone] Gastroenterology 02/05/21 Wesley Barrett MD [address] [facility] [address] [place] [address] Assigned Neuroscience Provider 05/10/21 [place] [address] [place] [address] Assigned PCP 05/15/22 Katiana Read MD [address] [place] [address] Assigned Endocrinology Provider 06/19/22 [place] [address] [place] [address] Nurse Practitioner Nurse Practitioner 10/18/22 Elham Stack, [facility] [address] [place] [address] Pharmacist Pharmacist 10/19/22 Aubrey Jones MD [address] [place] [id number] Cardiovascular Disease 03/28/23 Blanquita Morales Mechanical Commissioning Engineer Diabetes Education 04/25/23 Aubrey Jones MD [address] [place] [id number] Assigned Heart and Vascular Provider 05/07/23 documented as of this encounter
--- OUTSIDE RECORDS SUMMARY | 2023-08-03 09:56 | XMS_ITS | Encounter Summary ---
Author Name Unknown Organization [place] Address [address] [place] [address]. [place] [address] Care Team Providers Care Driver Material Handler Name Role Phone Jovany Gonzalez MD Unavailable [phone] CrissyStaci jeong ASSISTANT REFINERY OPERATOR Unavailable [phone] Unavailable [phone] Roshni Nascimento RN Unavailable Unavailable Kiet Swain MD Unavailable [phone] Winsome Pike APRN SAP TRAINER Unavailable [phone] Tori Hines [facility] Unavailable Miranda Queen [facility] Unavailable Unavailable Marisel Armando MD Unavailable Wesley Barrett MD Unavailable [phone] Dyan Fuentes MD Primary Care Provider [phone] Dyan Fuentes MD Unavailable [phone] Katiana Read MD Unavailable [phone] Mary Del Cid ASSISTANT REFINERY OPERATOR Unavailable [phone] Elham Stack [facility] Unavailable [phone] Aubrey Jones MD Unavailable [phone] Blanquita Morales Unavailable Unavailable Aubrey Jones MD Unavailable [phone] Encounter Details Date Type Department Care Team (Latest Contact Info) Description 07/11/2023 Travel Social History Tobacco Use Types Packs/Day [...] week 06/20/2023 How often do you attend religious or uatsdin serv ices? Never 06/20/2023 Do you belong to any clubs o r organizations such as religious groups, unions, fraternal or athletic groups, or [...] Answer Date Recorded PHQ-2 Score 1 06/23/2023 [facility] of Occupat ional Health - Occupational [...] st Contact Info) Description 08/18/2023 3:00 PM CHIEF RESOURCE OFFICER Office Visit [facility] [address] [place] [phone] Katiana Read MD [address] [place] [address] documented as of this encounter Goals Goal [...] Total Score: 7 06/23/20 23 1:54 PM CHIEF RESOURCE OFFICER documented as of this encounter Care Teams Driver Material Handler Relationship Specialty [place] [address] [place] [address] PCP - General Family Medicine 05/18/22 Jovany Gonzalez MD [facility] [address] [facility] [address] [place], [place] 48[address] Orthopedics 02/15/17 Staci Woodward, ASSISTANT REFINERY OPERATOR [place] [address] [place], [place] 89[address] Nurse Practitioner Nurse Practitioner Psych/Mental Health 05/10/17 Reanna Smith, RD [place] [address] [place], [place] [phone] Kennel Helper Dietitian, Registered 07/25/19 Roshni Nascimento, RN Personal Advocate & Liaison (PAL) Family Medicine 08/18/20 Kiet Swain MD [address] [place] [id number] Referring Physician Psychiatry 09/19/20 Winsome Pike APRN SAP TRAINER [address] [place] [address] [phone] Nurse Practitioner Psychiatry 09/19/20 Tori Hines, [facility] [address] [place] [address] [phone] Bioinformatics Research Technician Bioinformatics Research Technician - Clinical 09/19/20 Miranda Queen [facility] [address] [place] [address] Pharmacist Pharmacist 11/12/20 Marisel Armando MD [address] [place], [place] [phone] Gastroenterology 02/05/21 Wesley Barrett MD [address] [facility] [address] [place] [address] Assigned Neuroscience Provider 05/10/21 [place] [address] [place] [address] Assigned PCP 05/15/22 Katiana Read MD [address] [place] [address] Assigned Endocrinology Provider 06/19/22 [place] [address] [place] [address] Nurse Practitioner Nurse Practitioner 10/18/22 Elham Stack, [facility] [address] [place] [address] Pharmacist Pharmacist 10/19/22 Aubrey Jones MD [address] [place] [address] Cardiovascular Disease 03/28/23 Blanquita Morales Kennel Helper Diabetes Education 04/25/23 Aubrey Jones MD [address] [place] [address] Assigned Heart and Vascular Provider 05/07/23 documented as of this encounter
--- OUTSIDE RECORDS SUMMARY | 2023-08-03 09:56 | XMS_ITS | Encounter Summary ---
Author Name Unknown Organization [place] Address [address] [place] [address]. [place] [address] Care Team Providers Care Brick And Tile Making Machine Operator Name Role Phone Jovany Gonzalez MD Unavailable CrissyStaci jeong WIRE PREPARATION MACHINE TENDER Unavailable [phone] Unavailable [phone] Roshni Nascimento RN Unavailable Unavailable Kiet Swain MD Unavailable [phone] Winsome Pike APRN SERVOMECHANISM ASSEMBLER Unavailable [phone] Tori Hines [facility] Unavailable Miranda Queen [facility] Unavailable Unavailable Marisel Armando MD Unavailable Wesley Barrett MD Unavailable [phone] Dyan Fuentes MD Primary Care Provider [phone] Dyan Fuentes MD Unavailable [phone] Katiana Read MD Unavailable [phone] Mary Del Cid WIRE PREPARATION MACHINE TENDER Unavailable [phone] Elham Stack [facility] Unavailable [phone] Aubrey Jones MD Unavailable [phone] Blanquita Morales Unavailable Unavailable Aubrey Jones MD Unavailable [phone] Encounter Details Date Type Department Care Team (Latest Contact Info) Description 06/23/2023 Travel Social History Tobacco Use Types Packs/Day [...] week 06/20/2023 How often do you attend roman catholic or uatsdin serv ices? Never 06/20/2023 Do you belong to any clubs o r organizations such as roman catholic groups, unions, fraternal or athletic groups, [...] Answer Date Recorded PHQ-2 Score 1 06/23/2023 [facility] of Occupat ional Health - Occupational Stress [...] st Contact Info) Description 08/18/2023 3:00 PM CERTIFIED FIRST ASSISTANT Office Visit [facility] [address] [place] [phone] Katiana Read MD [address] [place] [address] documented as of this encounter Goals Goal [...] Total Score: 7 06/23/20 23 1:54 PM CERTIFIED FIRST ASSISTANT documented as of this encounter Care Teams Brick And Tile Making Machine Operator Relationship Specialty [place] [address] [place] [address] PCP - General Family Medicine 05/18/22 Jovany Gonzalez MD [facility] [address] [facility] [address] [place], [place] [address] Orthopedics 02/15/17 Staci Woodward, WIRE PREPARATION MACHINE TENDER [place] [address] [place], [place] [address] Nurse Practitioner Nurse Practitioner Psych/Mental Health 05/10/17 Reanna Smith, RD [place] [address] [place], [place] [address] Senior Business Manager Dietitian, Registered 07/25/19 Roshni Nascimento, RN Personal Advocate & Liaison (PAL) Family Medicine 08/18/20 Kiet Swain MD [address] [place] [phone] Referring Physician Psychiatry 09/19/20 Winsome Pike APRN SERVOMECHANISM ASSEMBLER [address] [place] [address] [phone] Nurse Practitioner Psychiatry 09/19/20 Tori Hines, [facility] [address] [place] [address] [phone] Clamper Clamper - Clinical 09/19/20 Miranda Queen [facility] [address] [place] [address] Pharmacist Pharmacist 11/12/20 Marisel Armando MD [address] [place], [place] [address] Gastroenterology 02/05/21 Wesley Barrett MD [address] [facility] [address] [place] [address] Assigned Neuroscience Provider 05/10/21 [place] [address] [place] [address] Assigned PCP 05/15/22 Katiana Read MD [address] [place] [address] Assigned Endocrinology Provider 06/19/22 [place] [address] [place] [address] Nurse Practitioner Nurse Practitioner 10/18/22 Elham Stack, [facility] [address] [place] [address] Pharmacist Pharmacist 10/19/22 Aubrey Jones MD [address] [place] [address] Cardiovascular Disease 03/28/23 Blanquita Morales Senior Business Manager Diabetes Education 04/25/23 Aubrey Jones MD [address] [place] [address] Assigned Heart and Vascular Provider 05/07/23 documented as of this encounter
--- OUTSIDE RECORDS SUMMARY | 2023-08-03 09:56 | XMS_ITS | Encounter Summary ---
Author Name Unknown Organization [facility] Address [address] [place] [address]. [place] [address] Care Team Providers Care Bi Application Developer Name Role Phone Jovany Gonzalez MD Unavailable CrissyStaci jeong DIRECTOR SAFETY COUNCIL Unavailable [phone] Unavailable [phone] Roshni Nascimento RN Unavailable Unavailable Kiet Swain MD Unavailable [phone] Winsome Pike APRN VOLUNTEER FIRE FIGHTER Unavailable [phone] Tori Hines [facility] Unavailable Miranda Queen [facility] Unavailable Unavailable Marisel Armando MD Unavailable Wesley Barrett MD Unavailable [phone] Dyan Fuentes MD Primary Care Provider [phone] Dyan Fuentes MD Unavailable [phone] Katiana Read MD Unavailable [phone] Mary Del Cid DIRECTOR SAFETY COUNCIL Unavailable [phone] Elham Stack [facility] Unavailable [phone] Aubrey Jones MD Unavailable [phone] Blanquita Morales Unavailable Unavailable Aubrey Jones MD Unavailable [phone] Reason for Referral * Consultation (Routine: Next available opening) - Pending Review Specialty Diagnoses / Procedures Referred By Jose R t Referred To Contact Diabetes Education Diagnoses Type 2 diabetes mellitus without complication, without long-term current use of insulin (H) Chronic kidney disease, stage 3a (H) Lenka Parks PA-C [address] [place] [address] Referral ID Status Reason Start Date Expiration Date V isits Requested Visits Authorized [id number] Pending Review 07/12/2023 07/11/2024 1 1 Question Answer Last HgbA1c: A1C 8.9 06/23/2023 Type of Training: Previous Diagnosis Diabetes Type: Type 2 Diabetes Co-Morbidities: Kidney Disease A1C Goal: <7.0 Medical Nutrition Therapy (MNT) for Diabetes Previous Diagnosis: Annual Follow-up MNT - 2 hours Diabetes Education Topics: Comprehensive Knowledge Assessment and Instruction Special Educational Needs: None, Additional Insulin Training Scheduling Instructions: [facility] will call you to coordinate your care as prescribed by your provider. If you don't hear from a medical center representative within 2 business days, please call Additional Information: I would like her to work on carb counting. She is currently taking a sliding scale only for Novolog. Comments Medicare covers 10 hours of initial Diabetes Self-Management Training (DSMT) in the 12-month period from the time of first visit after diagnosis, plus 2 hours of follow-up DSMT annually. Medical Nutrition Therapy (MNT) with a Registered Dietitian can be provided in coordination with DSMT to assist in achieving optimal diabetes management. Medicare will cover 3 hours of initial MNT in 12-month period from the time of first visit after diagnosis, plus 2 hours of follow-up MNT annually Please be aware that coverage of these services is subject to the terms and limitations of your health insurance plan. Call member services at your health plan to determine Diabetes Self-Management Training (Codes G0108 and G0109) and Medical Nutrition Therapy (Codes 91734 and 27872) benefits and ask which blood glucose monitor brands are covered by your plan. Please bring the following with you to your appointment: 1. List of current medications 2. List of Blood Glucose Monitor brands that are covered by your insurance plan 3. Blood Glucose Monitor and log book 4. Food records for the 3 days prior to your visit [facility] will call you to coordinate your care as prescribed by your provider. If you don't hear from a medical center representative within 2 business days, please call LE SETTER Reason for Visit * Reason Comments Diabetes Thyroid Disease Encounter Details Date Type Department Care Team (Late st Contact Info) Description 07/12/2023 10:30 AM MARBLE SETTER Office Visit [facility] [address] [place] [address] Lenka Parks PA-C [address] [place] [address] Type 2 diabetes mellitus without complication, without long-term current use of insulin (H) (Primary Dx); Chronic kidney disease, stage 3a (H); Postablative hypothyroidism; Type 2 diabetes mellitus without complication, with long-term current use of insulin (H); Type 1 diabetes mellitus with diabetic neuropathy (H) Social History Tobacco Use Types Packs/Day [...] week 06/20/2023 How often do you attend latter-day or spiritism serv ices? Never 06/20/2023 Do you belong to any clubs o r organizations such as latter-day groups, unions, fraternal or athletic groups, or [...] Answer Date Recorded PHQ-2 Score 1 06/23/2023 [facility] - Occupational Stress Questionnaire Answer [...] Sign Reading Time Taken Comments Blood Pressure 136/86 07/12/2023 10:24 AM MARBLE SETTER Pulse 67 07/12/2023 10:24 AM MARBLE SETTER Temperature 37.1 ??C (98.8 ??F) 07/12/2023 1 0:24 AM MARBLE SETTER Respiratory Rate 20 07/12/2023 10:2 4 AM MARBLE SETTER Oxygen Saturation 95% 07/12/2023 10: 24 AM MARBLE SETTER Inhaled Oxygen Concentration - - Weight 110.1 kg (242 lb 12.8 oz) 2023 10:24 AM MARBLE SETTER Height 172.7 cm (5' 7.99) 07/12/2023 1 0:24 AM MARBLE SETTER Body Mass Index 36.93 07/12/2023 10:24 AM MARBLE SETTER documented in this encounter Progress Notes * Lenka Parks PA-C - 07/12/2023 10:30 AM CST Assessment/Plan : Type 2 DM. Kaila is worried about her blood sugars. She has been taking her insulin as directed but her blood sugars are consistently elevated. She also reports occasional low blood sugars during the day. We reviewed her current insulin dosing and I would like her to increase the Basaglar to 44 unit(s) daily. We also discussed the concept of carb counting and I will refer her to our CDE team for follow-up. She is currently on a basic correction scale, which is not covering her carb intake. She will start with 4 unit(s) for every meal plus the correction until she can follow-up with the CDE team. She will see Dr. Read in August. Hypothyroidism. Kaila feels like her thyroid is off. It has been some time since her thyroid level was checked and she is due for a refill of her levothyroxine. I will place a laboratory order for repeat thyroid testing today and I will contact her with the results and any medication adjustment. I have independently reviewed and interpreted labs, imaging as indicated. Chief complaint: Kaila is a 62 year old female who returns to our office for follow-up of Type 2 DM and hypothyroidism. I have reviewed Care Everywhere including [facility], [facility], [facility], [facility] , [facility], [facility] lab reports, imaging reports and provider notes as indicated. HISTORY OF PRESENT ILLNESS Kaila feels like something is off. She has been taking her insulin every day, as directed, but her blood sugars are remaining elevated. She is also struggling with fatigue. She is worried that her thyroid level may be off and that it is affecting her blood sugars. She is currently taking Basaglar 40unit(s) every morning and Novolog before meals based on a sliding scale of 1 unit(s) for every 50 mg/dl over 150 mg/dl. She continues to monitor her blood sugars with the Dexcom sensor. Kaila has not had any problems with severe hyperglycemia and/or hypoglycemia. However, it is not uncommon for her blood sugars to spike over 300 mg/dl throughout the night. Kaila has been trying to eathealthy but it doesn't seem to help. She has not had any problems with worsening vision. She has noticed that the numbness in her toes seems to be worsening. She was also told that her kidney function has declined. Kaila has a complicated medical history that includes Type 2 DM, recurrent pancreatitis, COPD, hyperlipidemia, HTN, CKD stage 3, MARIELLE, chronic pain, and hypothyroidism. She was initially diagnosed withGraves disease as a teenager and underwent radioactive ablation. She was then started on levothyroxine. This dose has been adjusted over the years and she currently takes 350 mcg daily. At present time, she feels like her dose is off. She has been tired and she doesn't feel good. Endocrine relevant labs are as follows: Latest Reference Range & Units 06/23/23 15:28 Albumin Urine mg/L mg/L <12.0 Latest Reference Range & Units 06/23/23 15:28 Hemoglobin A1C 0.0 - 5.6 % 8.9 (H) (H): Data is abnormally high Latest Reference Range & Units 12/03/22 09:46 TSH 0.30 - 4.20 uIU/mL 22.03 (H) (H): Data is abnormally high Latest Reference Range & Units 12/03/22 09:46 T4 Free 0.90 - 1.70 ng/dL 0.74 (L) (L): Data is abnormally low REVIEW OF SYSTEMS Endocrine: positive for thyroid disorder, diabetes, and obesity Skin: negative for, hair loss on scalp, hyperpigmentation, facial redness Eyes: negative for, visual blurring, double vision, redness, tearing Ears/Nose/Throat: negative for, postnasal drainage, persistent sore throat, hoarseness Respiratory: No shortness of breath, dyspnea on exertion, cough, or hemoptysis Cardiovascular: negative for, chest pain, dyspnea on exertion, lower extremity edema, and exercise intolerance Gastrointestinal: negative for, nausea, vomiting, constipation, and diarrhea Genitourinary: negative for, nocturia, dysuria, frequency, and urgency Musculoskeletal: negative for, muscular weakness, nocturnal cramping, and foot pain Neurologic: positive for numbness or tingling of feet, negative for, local weakness, and numbness or tingling of hands Psychiatric: negative Hematologic/Lymphatic/Immunologic: negative Past Medical History Past Medical History: Diagnosis Date Anemia pernicous [...] (Graves) Vitamin B12 deficiency Vitamin D deficiency Medications Current Outpatient Medications Medication Sig Dispense Refill [...] fill and start 06/20/23 60 Film 0 calcium carbonate (OS-ALISA) 1500 (600 Ca) MG tablet Take 1 tablet (600 mg) by mouth 2 times daily (with meals) 100 tablet 0 clonazePAM (KLONOPIN) 1 MG tablet Take 1 mg by mouth 2 times daily colestipol (COLESTID) 1 g tablet Take 1 tablet (1 g) by mouth 2 times daily for 90 days 180 tablet 3 Continuous Blood Gluc Brick Mason (DEXCOM G6 JEWEL CUPPING MACHINE OPERATOR) ANITA USE DAILY 1 each 0 Continuous Blood Gluc Sensor (DEXCOM G6 SENSOR) MISC USE 1 SENSOR EVERY 10 DAYS 9 each 3 Continuous Blood Gluc Transmit (DEXCOM G6 TRANSMITTER) MISC Change every 3 months to continuously monitor blood glucose. 1 each 3 cyanocobalamin (CYANOCOBALAMIN) 1000 MCG/ML injection INJECT 1 [...] mouth daily (with breakfast) 100 tablet 1 Ypbrvgzowpq-Xrlnptowi-Ynvkjfijoi (TRELEGY ELLIPTA) 200-62.5-25 MCG/ACT oral inhaler Inhale 1 puff into the lungs daily 28 each 3 HYDROcodone-acetaminophen (NORCO) 5-325 MG tablet take 1 tablet by mouth every 4 to 6 hours as needed hydrOXYzine (ATARAX) 25 MG tablet Take 25 mg by mouth 4 times daily insulin aspart (NOVOLOG FLEXPEN) 100 UNIT/ML pen INJECT 1 UNIT FOR 50 POINTS ABOVE 150 WITH EACH MEAL (TOTAL DAILY DOSE 10-15 UNITS PER DAY) 15 mL 1 insulin glargine (BASAGLAR KWIKPEN) 100 UNIT/ML pen Inject 40 Units Subcutaneous every morning 15 mL 1 ipratropium - albuterol 0.5 mg/2.5 mg/3 mL (DUONEB) 0.5-2.5 (3) MG/3ML neb solution Take 1 vial (3 mLs) by nebulization every 6 hours as needed for shortness of breath, wheezing or cough 90 mL 1 levothyroxine (SYNTHROID/LEVOTHROID) 175 MCG tablet Take 2 tablets (350 mcg) by mouth daily 180 tablet 1 methocarbamol (ROBAXIN) 500 MG tablet Take 2 tablets (1,000 mg) by mouth 4 times daily 150 tablet 2 metoprolol tartrate (LOPRESSOR) 25 MG tablet TAKE 1 TABLET BY MOUTH TWICE A DAY 180 tablet 3 naloxone (NARCAN) 4 MG/0.1ML nasal spray [place] 1 spray (4 mg) into one nostril alternating nostrilsonce as needed for opioid reversal 0.2 mL 0 nitroGLYcerin (NITROSTAT) 0.[address] 1 tablet (0.4 mg) under the tongue every 5minutes as needed for chest pain 25 tablet 0 nystatin (MYCOSTATIN) 074849 UNIT/GM external ointment Apply topically 2 times daily as needed omega-3 acid ethyl esters (LOVAZA) 1 g [...] capsule by mouth daily 100 capsule 1 risperiDONE (RISPERDAL M-TABS) 0.[address] 0.5 mg under the tongue every morning rosuvastatin (CRESTOR) 40 MG tablet Take 1 tablet (40 mg) by mouth daily 90 tablet 3 simethicone (MYLICON) 80 MG chewable tablet Take 1 tablet (80 mg) by mouth every 6 hours as needed for flatulence or cramping Vitamin D3 (VITAMIN D, CHOLECALCIFEROL,) 25 mcg (1000 units) tablet Take 1 tablet by mouth daily Allergies Allergies Allergen Reactions Bees Anaphylaxis Levaquin [Levofloxacin Hemihydrate] Rash Nsaids Hx GI Bleed Reglan [Metoclopramide Hcl] Hives Droperidol Other (See Comments) Behavioral changes Nalbuphine Hcl Behavioral changes Phenergan [Promethazine] Other (See Comments) Patient reports she gets mean & jerky Family History family history includes Colon Cancer in her mother; Liver Disease in her father; Other - See Comments in her father; Substance Abuse in her father, sister, and sister. Social History Social History Tobacco Use Smoking status: Former Packs/day: 1.00 Years: 50.00 Additional pack years: 0.00 Total pack years: 50.00 Types: Cigarettes Quit date: 05/19/2023 Years since quittin.1 Smokeless tobacco: Never Vaping Use Vaping Use: Never used Substance Use Topics Alcohol use: Not Currently Drug use: No Comment: marijuana in high school Physical Exam BP 136/86 (BP Location: Left arm, Patient Position: Chair, Cuff Size: Adult Large) Pulse 67 Temp 98.8 ??F (37.1 ??C) (Tympanic) Resp 20 Ht 1.727 m (5' 7.99) Wt 110.1 kg (242 lb 12.8 oz) LMP (LMP Unknown) SpO2 95% No BMI 36.93 kg/m?? Body mass index is 36.93 kg/m??. GENERAL : In no apparent distress. She is accompanied by her SKIN: Normal color, normal temperature, texture. No hirsutism, alopecia or purple striae. EYES: PERRL, EOMI, No scleral icterus, No proptosis, conjunctival redness, stare, retraction NECK: No visible masses. No palpable adenopathy, or masses. No carotid bruits. THYROID: Normal, smooth / firm texture, no nodules, no Bruit. Pt complains of tenderness to palpation. RESP: Lungs clear to auscultation bilaterally CARDIAC: Regular rate and rhythm, normal S1 S2, without murmurs, rubs or gallops NEURO: awake, alert, responds appropriately to questions. Cranial nerves intact. Moves all extremities; Gait normal. No tremor of the outstretched hand. EXTREMITIES: No clubbing, cyanosis or edema. DATA REVIEW We were unable to download her Dexcom sensor LE SETTER documented in this encounter Miscellaneous Notes * Result Encounter Note - Katiana Read MD - 07/12/2023 10:30 AM MARBLE SETTER Labs/results noted. Please see telephone encounter dated 07/14/2023. LE SETTER documented in this encounter Plan of Treatment Upcoming Encounters Date Type Department Care Team (Late st Contact Info) Description 08/18/2023 3:00 PM MARBLE SETTER Office Visit [facility] [address] [place] [address] Katiana Read MD [address] [place], [place] [address] Scheduled Referrals Name Type Priority Associated Diagnoses Orde r Schedule Adult Diabetes Education Coffee Urn Attendant Referral Referral Routine: Next available opening Type 2 diabetes mellitus without complication, without long-term current use of insulin (H) Chronic kidney disease, stage 3a (H) Expected: 07/12/2023 (Approximate), Expires: 07/12/2024 documented as of this encounter Goals Goal [...] Procedure Name Priority Date/Time Associated Diagnosis Comments TSH Routine 07/12/2023 11:07 AM MARBLE SETTER Postablative hypothyroidism T4 FREE Routine 07/12/2023 11:07 AM MARBLE SETTER Postablative hypothyroidism documented in this encounter Results * (ABNORMAL) T4, free (07/12/2023 11:07 AM MARBLE SETTER) Free T4 0.53(L) 0.90 - 1.70 ng/dL 07/12/2023 10:35 PM MARBLE SETTER [facility] Blood BLOOD SPECIMEN / Unknown Venipuncture / Unknown 07/12/2023 11:07 AM MARBLE SETTER 07/12/2023 11:07 AM MARBLE SETTER Lenka Parks PA-C LAB - BLOOD ORDERABL ES [facility] [place] [facility] [address] [facility] [address], [address] [place] [address], [facility] [phone] * (ABNORMAL) TSH (07/12/2023 11:07 AM MARBLE SETTER) TSH 74.10(H) 0.30 - 4.20 uIU/mL 07/12/2023 10:35 PM MARBLE SETTER [facility] Blood BLOOD SPECIMEN / Unknown Venipuncture / Unknown 07/12/2023 11:07 AM MARBLE SETTER 07/12/2023 11:07 AM MARBLE SETTER Lenka Parks PA-C LAB - BLOOD ORDERABL ES [facility] [address] [facility] [place] [address], [facility] [phone] documented in this encounter Visit Diagnoses Diagnosis Type 2 diabetes mellitus without complication, without long-term current use of insulin (H)- Primary Chronic kidney disease, stage 3a (H) Postablative hypothyroidism Other postablative hypothyroidism Type 2 diabetes mellitus without complication, with long-term current use of insulin (H) Type 1 diabetes mellitus with diabetic neuropathy (H) Type I (juvenile type) diabetes mellitus with neurological manifestations, not stated as uncontrolled documented in this encounter Additional Health Concerns Problem Noted Date Diagnosed Date HbA1C Not In Goal 04/25/2023 Diabetes Self-Management Edu cation Needed to Optimize Self-Care Behaviors 04/25/2023 Assessment Noted Time PHQ-9 Depression Total Score: 7 06/23/20 23 1:54 PM MARBLE SETTER documented as of this encounter Care Teams Bi Application Developer Relationship Specialty [place] [address] [place] [address] PCP - General Family Medicine 05/18/22 Jovany Gonzalez MD [facility] [address] [facility] [address] [place] [address] Orthopedics 02/15/17 CrissyStaci jeong NP [place] [address] [place] [address] Nurse Practitioner Nurse Practitioner Psych/Mental Health 05/10/17 Reanna Smith, RD [place] [address] [place] [address] Business Intelligence Engineer Dietitian, Registered 07/25/19 Roshni Nascimento, RN Personal Advocate & Liaison (PAL) Family Medicine 08/18/20 Kiet Swain MD [address] [place] [phone] Referring Physician Psychiatry 09/19/20 Winsome Pike APRN VOLUNTEER FIRE FIGHTER [address] [place] [address] Nurse Practitioner Psychiatry 09/19/20 Tori Hines, [facility] [place] [address] Office Rental Clerk Office Rental Clerk - Clinical 09/19/20 Miranda Queen [facility] [address] [place] [address] Pharmacist Pharmacist 11/12/20 Marisel Armando MD [address] [place] [phone] Gastroenterology 02/05/21 Wesley Barrett MD [address] [place] [address] [address] [place] [address] Assigned Neuroscience Provider 05/10/21 [place] [address] [place] [address] Assigned PCP 05/15/22 Katiana Read MD [address] [facility] [address] [place] [address] Assigned Endocrinology Provider 06/19/22 [place] [address] [place] [address] Nurse Practitioner Nurse Practitioner 10/18/22 [facility] [address] [place] [address] Pharmacist Pharmacist 10/19/22 Aubrey Jones MD [address] [place] [address] Cardiovascular Disease 03/28/23 Blanquita Morales Business Intelligence Engineer Diabetes Education 04/25/23 Aubrey Jones MD [address] [place] [address] Assigned Heart and Vascular Provider 05/07/23 documented as of this encounter
--- OUTSIDE RECORDS SUMMARY | 2023-08-03 09:56 | XMS_ITS | Encounter Summary ---
Author Name Unknown Organization [place] Address [address] [place] [address]. [place] [address] Care Team Providers Care Co Founder And Chief Strategy Officer Name Role Phone Jovany Gonzalez MD Unavailable CrissyStaci jeong DIRECTOR OF DISTANCE LEARNING Unavailable [phone] Unavailable [phone] Roshni Nascimento RN Unavailable Unavailable Kiet Swain MD Unavailable [phone] Winsome Pike APRN LEARNING SOLUTIONS SPECIALIST Unavailable [phone] Tori Hines [facility] Unavailable Miranda Queen [facility] Unavailable Unavailable Marisel Armando MD Unavailable Wesley Barrett MD Unavailable [phone] Dyan Fuentes MD Primary Care Provider [phone] Dyan Fuentes MD Unavailable [phone] Katiana Read MD Unavailable [phone] Mary Del Cid DIRECTOR OF DISTANCE LEARNING Unavailable + [phone] Elham Stack [facility] Unavailable [phone] Aubrey Jones MD Unavailable [phone] Blanquita Morales Unavailable Unavailable Aubrey Jones MD Unavailable [phone] Reason for Visit * Reason Onset Date Comments Progress 05/27/2023 Encounter Details Date Type Department Care Team (Late st Contact Info) Description 05/27/[address] [facility] [address] [place] [address] [place] [address] [place] [address] Progress Social History Tobacco Use Types Packs/Day Years [...] week 10/16/2021 How often do you attend chur or synagogue services? 1 to 4 times per year 10/16/2021 Do you belong to any clubs o r organizations such as jehovah's witness groups, unions, fraternal or athletic groups, or [...] Answer Date Recorded PHQ-2 Score 2 05/12/2023 [facility] [place] of Occupat ional Health - Occupational Stress [...] encounter Miscellaneous Notes * Telephone Encounter - Roshni Nascimento RN - 05/27/2023 10:34 AM CST Pt quite smoking X 1 week She is struggling to keep herself busy and keep her hands busy. She has using hard candies. Playingvideo games. Recommend knitting as she does this. Could try syed art. She has been having more hip pain in hip that she had replace 2 years ago. Will go to [facility] this week end for this Scheduled for AWV Roshni Nascimento RN ING SHOVEL OPERATOR documented in this encounter Plan of Treatment Upcoming Encounters Date Type Department Care Team (Late st Contact Info) Description 08/18/2023 3:00 PM LOGGING SHOVEL OPERATOR Office Visit [facility] [address] [facility] [address] [place] [address] Katiana Read MD [address] [place] [address] documented as of this encounter [...] Needed to Optimize Self-Care Behaviors Blanquita Stuatr Taking Medication - patient is consistently taking medications as directed Care Plan Diabetes Self-Managemen t Education Needed to Optimize Self-Care Behaviors Blanquita Stuart Problem Solving - know how to prevent and manage short-term diabetes complications Care Plan Diabetes Self-Managemen t Education Needed to Optimize Self-Care Behaviors No Balnquita Morales Reducing Risks - know how to [...] documented as of this encounter Care Teams Co Founder And Chief Strategy Officer Relationship Specialty [place] [address] [place] [address] PCP - General Family Medicine 05/18/22 Jovany Gonzalez MD [facility] [address] [facility] [address] [place], [place] [address] Orthopedics 02/15/17 Staci Woodward DIRECTOR OF DISTANCE LEARNING [facility] [address] [place], [place] [address] Nurse Practitioner Nurse Practitioner Psych/Mental Health 05/10/17 Reanna Smith, RD [facility] [address] [place] [address] Hospital Aides And Assistants Teacher Dietitian, Registered 07/25/19 Roshni Nascimento RN Personal Advocate & Liaison (PAL) Family Medicine 08/18/20 Kiet Swain MD [address] [facility] [place] [address] Referring Physician Psychiatry 09/19/20 Winsome Pike APRN CNP [address] [place] [address] [id number] Nurse Practitioner Psychiatry 09/19/20 Tori Hines, [facility] [address] [place], [place] [address] Outsole Tacker Outsole Tacker - Clinical 09/19/20 Miradna Queen [facility] [address] [place] [address] Pharmacist Pharmacist 11/12/20 Marisel Armando MD [address] [place], [place] [address] Gastroenterology 02/05/21 Wesley Barrett MD [address] [facility] [address] [place], [place] [address] Assigned Neuroscience Provider 05/10/21 [place] [address] [place] [address] Assigned PCP 05/15/22 Katiana Read MD [address] [facility] 200 [place], [place] [address] Assigned Endocrinology Provider 06/19/22 Mary Del Cid, RAFA[facility] [address] [place] [address] Nurse Practitioner Nurse Practitioner 10/18/22 Elham Stakc, [facility] [address] [place] [address] Pharmacist Pharmacist 10/19/22 Aubrey Jones MD [address] [place] [address] Cardiovascular Disease 03/28/23 Blanquita Morales Hospital Aides And Assistants Teacher Diabetes Education 04/25/23 Aubrey Jones MD [address] [place] [address] Assigned Heart and Vascular Provider 05/07/23 documented as of this encounter
--- OUTSIDE RECORDS SUMMARY | 2023-08-03 09:56 | XMS_ITS | Encounter Summary ---
Author Name Unknown Organization [place] Address [address] [place] [address]. [place] [address] Care Team Providers Care Inspector Government Property Name Role Phone Jovany Gonzalez MD Unavailable CrissyStaci jeong TITLE 1 TUTOR Unavailable [phone] Unavailable [phone] Roshni Nascimento RN Unavailable Unavailable Kiet Swain MD Unavailable [phone] Winsome Pike APRN HAND SANDER Unavailable [phone] Tori Hines [facility] Unavailable Miranda Queen [facility] Unavailable Unavailable Marisel Armando MD Unavailable Wesley Barrett MD Unavailable [phone] Dyan Fuentes MD Primary Care Provider [phone] Dyan Fuentes MD Unavailable [phone] Katiana Read MD Unavailable [phone] Maurice Cee TITLE 1 TUTOR Unavailable + [phone] Elham Stack [facility] Unavailable [phone] Aubrey Jones MD Unavailable [phone] Blanquita Morales Unavailable Unavailable Aubrey Jones MD Unavailable [phone] Reason for Visit * Reason Onset Date Comments Opioid Refill 05/17/2023 buprenorphine HC l-naloxone HCl (SUBOXONE) 4-1 MG per film Encounter Details Date Type Department Care Team (Late st Contact Info) Description 05/17/2023 Refill [facility] [place] [address] [facility] [address] [place] [address] [place] [address] [place] [address] Opioid Refill (buprenorphine HCl-naloxone HCl (SUBOXONE) 4-1 [...] How often do you attend chur or gnosticist services? 1 to 4 times per year 10/16/2021 Do you belong to any clubs o r organizations such as rastafarian groups, unions, fraternal or athletic groups, or [...] Answer Date Recorded PHQ-2 Score 2 05/12/2023 [facility] [place] of Occupat ional Health - Occupational Stress [...] Orientation Straight 11/06/2020 8: 58 AM CDT COVID-19 Exposure Response Date Recorded In the last 10 days, have yo u been in contact with someone who was confirmed or suspected to have Coronavirus/COVID-19? No / Unsure 04/18/2023 1:42 PM CDT documented as of this encounter Miscellaneous Notes * Telephone Encounter - Maurice Cee NP - 05/17/2023 2:02 PM INSTANT POTATO PROCESSOR [place] Prescription Monitoring Program database was checked and prescription was e- prescribed to their preferred pharmacy. Encounter closed. Signed Prescriptions: Disp Refills buprenorphine HCl-naloxone HCl (SUBOXONE) *60 Film0 Sig: Place 0.5 Film under the tongue 4 times daily OK to fill and start 05/17/23 Authorizing Provider: MAURICE CEE NP ANT POTATO PROCESSOR * Telephone Encounter - Janine Argueta RN - 05/17/2023 1:57 PM INSTANT POTATO PROCESSOR Routing to provider to review medication prepped per below buprenorphine HCl-naloxone HCl (SUBOXONE) 4-1 MG per film , #60, Refill:0 Sig:Place 0.5 Film under the tongue 4 times daily Last picked up 04/15/23 with start on 04/15/23 Due: OK to fill and start 05/17/23 Per last OV note 04/18/23: - buprenorphine HCl-naloxone HCl (SUBOXONE) 4-1MG per film recently filled by Dr. Baxter, will be picking up today. IDALOU [facility] - [place], [place] - [address] [facility] [address] Janine Raymundo RN Dredge Runner [facility] ANT POTATO PROCESSOR * Telephone Encounter - Sarah Villarreal - 05/17/2023 1:45 PM CST Received call from patient requesting refill(s) of buprenorphine HCl-naloxone HCl (SUBOXONE) 4-1 MGper film Last dispensed from pharmacy on 04/15/23 Patient's last office/virtual visit by prescribing provider on 04/18/23 Next office/virtual appointment scheduled for 07/19/23 Last urine drug screen date 11/25/22 Current opioid agreement on file (completed within the last year) Yes Date of opioid agreement: 11/11/22 E-prescribe to pharmacy-[facility] - [address] Will route to [facility] for review and preparation of prescription(s). ANT POTATO PROCESSOR * Telephone Encounter - Janine Argueta RN - 05/17/2023 1:11 PM INSTANT POTATO PROCESSOR Will route to [facility] for assistance with gathering opioid refill information. Janine Raymundo RN [facility] ANT POTATO PROCESSOR * Telephone Encounter - Isabel Munoz - 05/17/2023 12:58 PM CST [facility] Phone Message May a detailed message be left on voicemail: yes Reason for Call: Medication Refill Request Has the patient contacted the pharmacy for the refill? Yes Name of medication being requested: buprenorphine HCl-naloxone HCl (SUBOXONE) 4- 1 MG per film Provider who prescribed the medication: Maurice Cee NP Pharmacy: [facility] [address] Date medication is needed: 05/20/2023 Action Taken: Message routed to: Other: [facility] Travel Screening: Not Applicable ANT POTATO PROCESSOR documented in this encounter Plan of Treatment Upcoming Encounters Date Type Department Care Team (Late st Contact Info) Description 08/18/2023 3:00 PM INSTANT POTATO PROCESSOR Office Visit [facility] [address] [place] [address] Katiana Read MD [address] [place] [address] documented as of this encounter Goals Goal [...] documented as of this encounter Care Teams Inspector Government Property Relationship Specialty [place] [address] [place] [address] PCP - General Family Medicine 05/18/22 Jovany Gonzalez MD [facility] [address] [facility] [address] [place], [place] [address] Orthopedics 02/15/17 Staci Woodward, TITLE 1 TUTOR [place] [address] [place], [place] [address] Nurse Practitioner Nurse Practitioner Psych/Mental Health 05/10/17 Reanna Smith, RD [facility] [address] [place], [place] [address] Construction Safety Consultant Dietitian, Registered 07/25/19 Roshni Nascimento, RN Personal Advocate & Liaison (PAL) Family Medicine 08/18/20 Kiet Swain MD [address] [place] [address] Referring Physician Psychiatry 09/19/20 Winsome Pike APRN HAND SANDER [facility] [address] [address] Nurse Practitioner Psychiatry 09/19/20 Tori Hines [facility] [address] [place] [address] Hand Mold Maker Hand Mold Maker - Clinical 09/19/20 Miranda Queen [facility] [address] [place] [address] Pharmacist Pharmacist 5/5/21 Marisel Armando MD 909 [place] [address] Gastroenterology 02/05/21 Wesley Barrett MD [address] [facility] [address] [place] [address] Assigned Neuroscience Provider 05/10/21 [place] [address] [place] [address] Assigned PCP 05/15/22 Katiana Read MD [address] [place], [place] [address] Assigned Endocrinology Provider 06/19/22 [place] [address] [place] [address] Nurse Practitioner Nurse Practitioner 10/18/22 Elham Stack, [facility] [address] [place] [address] Pharmacist Pharmacist 10/19/22 Aubrey Jones MD [address] [place] [address] Cardiovascular Disease 03/28/23 Blanquita Morales Construction Safety Consultant Diabetes Education 04/25/23 Aubrey Jones MD [address] [place] [address] Assigned Heart and Vascular Provider 05/07/23 documented as of this encounter
--- OUTSIDE RECORDS SUMMARY | 2023-08-03 09:56 | XMS_ITS | Encounter Summary ---
Author Name Unknown Organization [facility] Address [address] [place] [address]. [place] [address] Care Team Providers Care Hand Spring Former Name Role Phone Jovany Gonzalez MD Unavailable CrissyStaci jeong BRIDGE IRONWORKER HELPER Unavailable [phone] Unavailable [phone] Roshni Nascimento RN Unavailable Unavailable Kiet Swain MD Unavailable [phone] Winsome Pike APRN AGRICULTURE LABORATORY TECHNICIAN Unavailable [phone] Tori Hines [facility] Unavailable Miranda Queen [facility] Unavailable Unavailable Marisel Armando MD Unavailable Wesley Barrett MD Unavailable [phone] Dyan Fuentes MD Primary Care Provider [phone] Dyan Fuentes MD Unavailable [phone] Katiana Read MD Unavailable [phone] Mary Del Cid BRIDGE IRONWORKER HELPER Unavailable + [phone] Elham Stack [facility] Unavailable [phone] Aubrey Jones MD Unavailable [phone] Blanquita Morales Unavailable Unavailable Aubrey Jones MD Unavailable [phone] Reason for Visit * Rehab Therapy Physical Therapy (Routine) - Closed Specialty Diagnoses / Procedures Referred By Jose R t Referred To Contact Physical Therapy Diagnoses Chronic pain syndrome S/P lumbar laminectomy S/P cervical spinal fusion Mary Del Cid, RAFA[place] [address] [place] [address] [facility] [place] [address] [facility] [address] [place] [address] Referral ID Status Reason Start Date Expiration Date Visits Re quested Visits Authorized [id number] Closed 05/04/2023 07/10/2023 365 365 Encounter Details Date Type Department Care Team (Latest Contact Info) Description 05/31/2023 4:00 PM CREW LEAD Therapy Visit [facility] [place] [address] [facility] [address] [place], [place] [address] [place] [address] [address] Chronic pain syndrome (Primary Dx) Social History Tobacco Use Types Packs/Day Years [...] week 06/20/2023 How often do you attend religion or scientology serv ices? Never 06/20/2023 Do you belong to any clubs o r organizations such as religion groups, unions, fraternal or athletic groups, or [...] Answer Date Recorded PHQ-2 Score 1 06/23/2023 [facility] - Occupational Stress Questionnaire Answer Date Recorded [...] st Contact Info) Description 08/18/2023 3:00 PM CREW LEAD Office Visit [facility] [address] [facility] [address] [place] [address] Katiana Read MD [address] [facility] 200 [place] [address] documented as of this encounter [...] Visit Diagnoses Diagnosis Chronic pain syndrome- Primary documented in this encounter Additional Health Concerns Problem Noted Date Diagnosed Date HbA1C Not In Goal 04/25/2023 Diabetes Self-Management Edu cation Needed to Optimize Self-Care Behaviors 04/25/2023 Assessment Noted Time PHQ-9 Depression Total Score: 6 05/12/20 23 1:53 PM CDT documented as of this encounter Care Teams Hand Spring Former Relationship Specialty [place] [address] [place] [address] PCP - General Family Medicine 05/18/22 Jovany Gonzalez MD [facility] [address] [facility] [address] [place], [place] [address] Orthopedics 02/15/17 Staci Woodward NP [place] [address] [place], [place] [address] Nurse Practitioner Nurse Practitioner Psych/Mental Health 05/10/17 Reanna Smith, [facility] [address] [place], [place] [address] Degreaser Operator Dietitian, Registered 07/25/19 Roshni Nascimento RN Personal Advocate & Liaison (PAL) Family Medicine 08/18/20 Kiet Swain MD [address]50 [facility] [address] [place] [address] Referring Physician Psychiatry 09/19/20 Winsome Pike APRN AGRICULTURE LABORATORY TECHNICIAN [address] [place], [place] [address] Nurse Practitioner Psychiatry 09/19/20 Tori Hines, [facility] [address] [place] [address] Trauma Director Trauma Director - Clinical 09/19/20 Miranda Queen [facility] [address] [place] [address] Pharmacist Pharmacist 11/12/20 Marisel Armando MD [address] [place], [place] [address] Gastroenterology 02/05/21 Wesley Barrett MD [address] [facility] [address] [place], [place] [address] Assigned Neuroscience Provider 05/10/21 [place] [address] [place] [address] Assigned PCP 05/15/22 Katiana Read MD [address] [facility] 200 [place], [place] [address] Assigned Endocrinology Provider 06/19/22 [place] [address] [place] [address] Nurse Practitioner Nurse Practitioner 10/18/22 Elham Stack, [facility] [address] [place] [address] Pharmacist Pharmacist 10/19/22 Aubrey Jones MD [address] [place] [address] Cardiovascular Disease 03/28/23 Blanquita Morales Degreaser Operator Diabetes Education 04/25/23 Aubrey Jones MD [address] [place] [address] Assigned Heart and Vascular Provider 05/07/23 documented as of this encounter
--- OUTSIDE RECORDS SUMMARY | 2023-08-03 09:56 | XMS_ITS | Encounter Summary ---
Author Name Unknown Organization [place] Address [address] [place] [address]. [place] [address] Care Team Providers Care Cook Starch Name Role Phone Jovany Gonzalez MD Unavailable CrissyStaci jeong CARE PROGRAM DIRECTOR Unavailable [phone] Unavailable [phone] Roshni Nascimento RN Unavailable Unavailable Kiet Swain MD Unavailable [phone] Winsome Pike APRN WIND COMMISSIONING TECHNICIAN Unavailable [phone] Tori Hines [facility] Unavailable Miranda Queen [facility] Unavailable Unavailable Marisel Armando MD Unavailable Wesley Barrett MD Unavailable [phone] Dyan Fuentes MD Primary Care Provider [phone] Dyan Fuentes MD Unavailable [phone] Katiana Read MD Unavailable [phone] Mary Del Cid CARE PROGRAM DIRECTOR Unavailable + [phone] Elham Stack [facility] Unavailable [phone] Aubrey Jones MD Unavailable [phone] Blanquita Morales Unavailable Unavailable Aubrey Jones MD Unavailable [phone] Encounter Details Date Type Department Care Team (Latest Contact Info) Description 06/20/2023 Travel Social History Tobacco Use Types Packs/Day [...] week 06/20/2023 How often do you attend presybeterian or confucianist serv ices? Never 06/20/2023 Do you belong to any clubs o r organizations such as presybeterian groups, unions, fraternal or athletic groups, or [...] Answer Date Recorded PHQ-2 Score 2 05/12/2023 [facility] of Occupat ional Health - Occupational [...] st Contact Info) Description 08/18/2023 3:00 PM BROMINATION EQUIPMENT OPERATOR Office Visit [facility] [address] [place] [address] Katiana Read MD [address] [place] [address] documented as of this encounter Goals Goal [...] documented as of this encounter Care Teams Cook Starch Relationship Specialty [place] [address] [place] [address] PCP - General Family Medicine 05/18/22 Jovany Gonzalez MD [facility] [address] [facility] [address] [place], [place] [address] Orthopedics 02/15/17 Staci Woodward, CARE PROGRAM DIRECTOR [place] [address] [place] [place], [place] [address] Nurse Practitioner Nurse Practitioner Psych/Mental Health 05/10/17 Reanna Smith, RD [place] [address] [place], [place] [address] Edge Bander Operator Dietitian, Registered 07/25/19 Roshni Nascimento, RN Personal Advocate & Liaison (PAL) Family Medicine 08/18/20 Kiet Swain MD [address] [place] [address] Referring Physician Psychiatry 09/19/20 Winsome Pike APRN WIND COMMISSIONING TECHNICIAN [address] [place] [address] Nurse Practitioner Psychiatry 09/19/20 Tori Hines, [facility] [address] [place] [address] Senior Chemical Process Engineer Senior Chemical Process Engineer - Clinical 09/19/20 Miranda Queen [facility] [address] [place] [address] Pharmacist Pharmacist 11/12/20 Marisel Armando MD [address] [place] [id number] Gastroenterology 02/05/21 Wesley Barrett MD [address] [facility] [address] [place] [address] Assigned Neuroscience Provider 05/10/21 [place] [address] [place] [address] Assigned PCP 05/15/22 aKtiana Read MD [address] [place] [address] Assigned Endocrinology Provider 06/19/22 [place] [address] [place] [address] Nurse Practitioner Nurse Practitioner 10/18/22 Elham Stack, [facility] [address] [place] [address] Pharmacist Pharmacist 10/19/22 Aubrey Jones MD [address] [place] [address] Cardiovascular Disease 03/28/23 Blanquita Morales Edge Bander Operator Diabetes Education 04/25/23 Aubrey Jones MD [address] [place] [address] Assigned Heart and Vascular Provider 05/07/23 documented as of this encounter
--- OUTSIDE RECORDS SUMMARY | 2023-08-03 09:57 | XMS_ITS | Encounter Summary ---
Author Name Unknown Organization [facility] Address [address] [place] [address]. [place] [address] Care Team Providers Care Commutator Repairer Name Role Phone Jovany Gonzalez MD Unavailable CrissyStaci jeong NP Unavailable [phone] Unavailable [phone] Roshni Nascimento RN Unavailable Unavailable Kiet Swain MD Unavailable [phone] Winsome Pike APRN BOAT JOINER HELPER Unavailable [phone] [facility] Unavailable Miranda Queen [facility] Unavailable Unavailable Marisel Armando MD Unavailable Wesley Barrett MD Unavailable [phone] Dyan Fuentes MD Primary Care Provider [phone] Dyan Fuentes MD Unavailable [phone] Katiana Read MD Unavailable [phone] Mary Del Cid CORPORATE COMMUNICATIONS SPECIALIST Unavailable [phone] Elham Stack [facility] Unavailable [phone] Aubrey Jones MD Unavailable [phone] Blanquita Morales Unavailable Unavailable Reason for Visit * Reason Comments Diabetes Education Encounter Details Date Type Department Care Team (Late st Contact Info) Description 04/25/2023 1:45 PM CDT Virtual Visit [facility] [address] [place] [address] Blanquita Morales, RD [address] [place] [address] Diabetes mellitus (H) (Primary Dx) Social History Tobacco Use Types Packs/Day Years Used Date Smoking Tobacco: Every Day Cigarettes 1 50 Smokeless Tobacco: Never Comments:down to 4 cigs per day. Quitting 10/04/21 Alcohol Use Standard Drinks/Week Comments Not Currently [...] week 10/16/2021 [facility] services? 1 to 4 times per year 10/16/2021 Do you belong to any clubs o r organizations such as quaker groups, unions, fraternal or athletic groups, or [...] more drinks on one occasion? Never 10/16/2021 Overall Financial Resource Strain (CARDIA) Answe r Date Recorded How hard is it for you to pa y for the very basics like food, housing, medical care, and heating? Not very hard 10/16/2021 PHQ-2 Answer Date Recorded PHQ-2 Score 2 11/25/2022 [facility] [place] [facility] - Occupational Stress [...] exercise at this level? 0 min 10/16/2021 Hunger Vital Sign Answer Date Recorded Within the past 12 months, y ou worried that your food would run out before you got the money to buy more. Never true 10/17/19 22 Within the past 12 months, t he food you bought just didn't last and you didn't have money to get more. Never true 10/16/2021 PRAPARE - Transportation Answer Date Re corded In the past 12 months, has l ack of transportation kept you from medical appointments or from getting medications? No 02/2022 In the past 12 months, has l ack of transportation kept you from meetings, work, or from getting things needed for daily living? No 10/16/2021 Housing Stability Vital Sign Answer Henrique e Recorded In the last 12 months, was t here a time when you were not able to pay the mortgage or rent on time? No 10/16/2021 In the last 12 months, how many places have you lived? 1 10/16/2021 In the last 12 months, was t here a time when you did not have a steady place to sleep or slept in a detention (including now)? No 10/16/2021 Adolescent Education Answer Date Record ed Getting School Help Needed Not on file 04/06 Education Answer Date Recorded What is the [...] PM CDT documented as of this encounter Progress Notes * Blanquita Morales J - 04/25/2023 1:45 PM CDT Images from the original note were not included. Diabetes Self-Management Education & Support Presents for: Individual review Type of Service: Telephone Visit Originating Location (Patient Location): Home Distant Location (Provider Location): Offsite Mode of Communication: Telephone Telephone Visit Start Time: 145 Telephone Visit End Time (telephone visit stop time): 215 How would patient like to obtain AVS? MyChart ASSESSMENT: Kaila states BG are higher but they are in better control than they were in February. They were in the 400s every day, so I started to increase Basaglar and titrated to 32 units over 2 months. She hasnow been at 32 units for the last couple weeks. 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 Reported BG from Kaila: She was unable to access TRUE linkswear carmina and states it wasn't working. Fasting range: 98-198 mg/dL Before meals: 120-220 mg/dL After meals: 200 range Patient's most recent Lab Results Component Value Date A1C 6.5 10/16/2022 A1C 5.6 10/27/2020 is meeting goal of <7.0 Diabetes knowledge and skills assessment: Patient is knowledgeable in diabetes management concepts related to: Monitoring Continue education with the following diabetes management concepts: Taking Medication, Problem Solving, and Reducing Risks Based on learning assessment above, most appropriate setting for further diabetes education would be: Individual setting. PLAN Kaila needed to leave the appointment early but requested an update for her Basaglar prescription. Pended Basaglar update to referring provider (as it is >20% increase from current prescription). She did not want to schedule follow up at this time but would benefit from meal plan review along with meal time insulin dosing. See Care Plan for co-developed, patient-state behavior change goals. SUBJECTIVE/OBJECTIVE: Presents for: Individual review Accompanied by: Self Diabetes education in the past 24mo: No Focus of Visit: Monitoring, Healthy Eating, Taking Medication Disease course: Improving (Since she has titrated her Basaglar) Cultural Influences/Ethnic Background: Not or Diabetes Symptoms & Complications: Weight trend: Increasing Complications assessed today?: No Patient Problem List and Family Medical History reviewed for relevant medical history, current medical status, and diabetes risk factors. Vitals: LMP (LMP Unknown) Estimated body mass index is 36.96 kg/m?? as calculated from the following: Height as of 12/30/22: 1.727 m (5' 8). Weight as of 04/18/23: 110.3 kg (243 lb 1.6 oz). Last 3 BP: BP Readings from Last 3 Encounters: 04/18/23 (!) 140/86 02/14/23 128/84 12/30/22 132/81 History Smoking Status Every Day Packs/day: 1.00 Years: 50.00 Types: Cigarettes Smokeless Tobacco Never Labs: Lab Results Component Value Date A1C 6.5 10/16/2022 A1C 5.6 10/27/2020 Lab Results Component Value Date GLC 206 2022 GLC 211 11/16/2021 GLC 159 01/18/2021 Lab Results Component Value Date LDL 10/04/2022 Comment: Cannot estimate LDL when triglyceride exceeds 400 mg/dL LDL 50 10/04/2022 LDL 108 11/17/2020 HDL Cholesterol Date Value Ref Range Status 11/17/2020 64 >49 mg/dL Final Direct Measure HDL Date Value Ref Range Status 10/04/2022 64 >=50 mg/dL Final ] GFR Estimate Date Value Ref Range Status 2022 63 >60 mL/min/1.73m2 Final Comment: eGFR calculated using 2020 CKD-EPI equation. 01/18/2021 87 >60 mL/min/[1.73_m2] Final Comment: Non GFR Calc Starting 06/27/2018, serum creatinine based estimated GFR (eGFR) will be calculated using the Chronic Kidney Disease Epidemiology Collaboration (CKD-EPI) equation. GFR Estimate If Black Date Value Ref Range Status 01/18/2021 >90 >60 mL/min/[1.73_m2] Final Comment: GFR Calc Starting 06/27/2018, serum creatinine based estimated GFR (eGFR) will be calculated using the Chronic Kidney Disease Epidemiology Collaboration (CKD-EPI) equation. Lab Results Component Value Date CR 1.00 2022 CR 0.74 01/18/2021 No results found for: MICROALBUMIN Healthy Eating: Healthy Eating Assessed Today: Yes Meals include: Lunch, Dinner Breakfast: 8 AM: coffee with creamer Kinyarwanda sweet cream (tends to raise blood sugar) never eats breakfast, takes insulin before coffee Lunch: 1-2 PM: Boost or Glucerna or meatloaf sandwich Dinner: 6-9 PM: instrumentation tech salad with low fat dressing, ice cream OR fried rice with chicken and vegetables and dessert was ice cream or pork chops with applesauce and green beans, water Snacks: not typically Other: Diagnosed as Type 1 at age [age] years old Beverages: Coffee Has patient met with a dietitian in the past?: Yes Being Active: Being Active Assessed Today: Yes Exercise:: Currently not exercising (starting physical therapy - has broken leg 3 times and have had hip replacement) Barrier to exercise: Physical limitation (Limited mobility) Monitoring: Monitoring Assessed Today: Yes Did patient bring glucose meter to appointment? : Yes Blood Glucose Meter: CGM Times checking blood sugar at home (number): Other Times checking blood sugar at home (per): Day Blood glucose trend: Increasing As reported above Taking Medications: Diabetes Medication(s) Insulin insulin aspart (NOVOLOG FLEXPEN) 100 UNIT/ML pen INJECT 1 UNIT FOR 50 POINTS ABOVE 150 WITH EACH MEAL (TOTAL DAILY DOSE 10-15 UNITS PER DAY) insulin glargine (BASAGLAR KWIKPEN) 100 UNIT/ML pen Inject 10 Units Subcutaneous every morning Taking Medication Assessed Today: Yes Current Treatments: Insulin Injections Dose schedule: Pre-breakfast, Pre-lunch, Pre-dinner, At bedtime Given by: Patient Injection/Infusion sites: Abdomen Problem Solving: Problem Solving Assessed Today: Yes Is the patient at risk for hypoglycemia?: Yes (Feels low BG at 100 mg/dL) Hypoglycemia Frequency: Rarely Hypoglycemia Treatment: Glucose (tablets or gel), Other food (skim milk) Hypoglycemia symptoms Dizziness or Light-Headedness: Yes Headaches: No Mood changes: Yes Sweats: Yes Feeling shaky: Yes Healthy Coping: Healthy Coping Assessed Today: Yes Emotional response to diabetes: Ready to learn Informal Support system:: Spouse Stage of change: PREPARATION (Decided to change - considering how) Patient Activation Measure Survey Score: 11/30/2010 3:00 PM 11/15/2020 9:10 PM SASCHA Score (Last Two) SASCHA Raw Score 49 34 Activation Score 82.8 68.9 SASCHA Level 4 3 Care Plan and Education Provided: Care Plan: Diabetes Updates made by Blanquita Morales since 04/25/2023 12:00 AM Problem: HbA1C Not In Goal Goal: Establish Regular Follow-Ups with PCP Task: Discuss with PCP the recommended timing for patient's next follow up visit(s) Responsible User: Blanquita Morales Task: Discuss schedule for PCP visits with patient Responsible User: Blanquita Morales Goal: Get HbA1C Level in Goal Task: Educate patient on diabetes education self-management topics Responsible User: Blanquita Morales Task: Educate patient on benefits of regular glucose monitoring Responsible User: Blanquita Morales Task: Refer patient to appropriate extended care steam tunnel feeder, as needed (Medication Therapy Management, Behavioral Health, Physical Therapy, etc.) Responsible User: Blanquita Morales Task: Discuss diabetes treatment plan with patient Responsible User: Blanquita Morales Problem: Diabetes Self-Management Education Needed to Optimize Self-Care Behaviors Goal: Understand diabetes pathophysiology and disease progression Task: Provide education on diabetes pathophysiology and disease progression specfic to patient's diabetes type Responsible User: Blanquita Morales Goal: Healthy Eating - follow a healthy eating pattern for diabetes Task: Provide education on portion control and consistency in amount, composition and timing of food intake Responsible User: Blanquita Morales Task: Provide education on managing carbohydrate intake (carbohydrate counting, plate planning method, etc.) Responsible User: Blanuqita Morales Task: Provide education on weight management Responsible User: Blanquita Morales Task: Provide education on heart healthy eating Responsible User: Blanquita Morales Task: Provide education on eating out Responsible User: Blanquita Morales Task: Develop individualized healthy eating plan with patient Responsible User: Blanquita Morales Goal: Being Active - get regular physical activity, working up to at least 150 minutes per week Task: Provide education on relationship of activity to glucose and precautions to take if at risk for low glucose Responsible User: Blanquita Morales Task: Discuss barriers to physical activity with patient Responsible User: Blanquita Morales Task: Develop physical activity plan with patient Responsible User: Blanquita Morales Task: Explore community resources including walking groups, assistance programs, and home videos Responsible User: Blanquita Morales Goal: Monitoring - monitor glucose and ketones as directed Task: Provide education on blood glucose monitoring (purpose, proper technique, frequency, glucose targets, interpreting results, when to use glucose control solution, sharps disposal) Responsible User: Blanquita Morales Task: Provide education on continuous glucose monitoring (sensor placement, use of carmina or pearl restorer/reader, understanding glucose trends, alerts and alarms, differences between sensor glucose and blood glucose) Completed 04/25/2023 Responsible User: Blanquita Morales Task: Provide education on ketone monitoring (when to monitor, frequency, etc.) Responsible User: Blanquita Morales Goal: Taking Medication - patient is consistently taking medications as directed Task: Provide education on action of prescribed medication, including when to take and possible side effects Completed 04/25/2023 Responsible User: Blanquita Morales Task: Provide education on insulin and injectable diabetes medications, including administration, storage, site selection and rotation for injection sites Responsible User: Blanquita Morales Task: Discuss barriers to medication adherence with patient and provide management technique ideas as appropriate Responsible User: Blanquita Morales Task: Provide education on frequency and refill details of medications Completed 04/25/2023 Responsible User: Blanquita Morales Goal: Problem Solving - know how to prevent and manage short-term diabetes complications Task: Provide education on high blood glucose - causes, signs/symptoms, prevention and treatment Completed 04/25/2023 Responsible User: Blanquita Morales Task: Provide education on low blood glucose - causes, signs/symptoms, prevention, treatment, carrying a carbohydrate source at all times, and medical identification Completed 04/25/2023 Responsible User: Blanquita Morales Task: Provide education on safe travel with diabetes Responsible User: Blanquita Morales Task: Provide education on how to care for diabetes on sick days Responsible User: Blanquita Morales Task: Provide education on when to call a health care provider Completed 04/25/2023 Responsible User: Blanquita Morales Goal: Reducing Risks - know how to prevent and treat long-term diabetes complications Task: Provide education on major complications of diabetes, prevention, early diagnostic measures and treatment of complications Responsible User: Blanquita Morales Task: Provide education on recommended care for dental, eye and foot health Responsible User: Blanquita Morales Task: Provide education on Hemoglobin A1c - goals and relationship to blood glucose levels Completed 04/25/2023 Responsible User: Blanquita Morales Task: Provide education on recommendations for heart health - lipid levels and goals, blood pressure and goals, and aspirin therapy, if indicated Responsible User: Blanquita Morales Task: Provide education on tobacco cessation Responsible User: Blanquita Morales Goal: Healthy Coping - use available resources to cope with the challenges of managing diabetes Task: Discuss recognizing feelings about having diabetes Responsible User: Blanquita Morales Task: Provide education on the benefits of making appropriate lifestyle changes Completed 04/25/2023 Responsible User: Blanquita Morales Task: Provide education on benefits of utilizing support systems Completed 04/25/2023 Responsible User: Blanquita Morales Task: Discuss methods for coping with stress Responsible User: Blanquita Morales Task: Provide education on when to seek professional counseling Responsible User: Blanquita Morales RDN, [place], [facility] Time Spent: 30 minutes Encounter Type: Individual Any diabetes medication dose changes were made via the CDE Protocol per the patient's referring provider. A copy of this encounter was shared with the provider. documented in this encounter Plan of Treatment Upcoming Encounters Date Type Department Care Team (Late st Contact Info) Description 08/18/2023 3:00 PM RECOATING MACHINE OPERATOR Office Visit [facility] [address] [place] [address] Katiana Read MD [address] [facility] [address] [place] [address] documented as of this encounter Goals Goal [...] as of this encounter Visit Diagnoses Diagnosis Diabetes mellitus (H)- Primary Type II or unspecified type diabetes mellitus without mention of complication, not stated as uncontrolled documented in this encounter Additional Health Concerns Problem Noted Date Diagnosed Date HbA1C Not In Goal 04/25/2023 Diabetes Self-Management Edu cation Needed to Optimize Self-Care Behaviors 04/25/2023 Assessment Noted Time PHQ-9 Depression Total Score: 10 023 8:26 AM CDT documented as of this encounter Care Teams Commutator Repairer Relationship Specialty [place] [address] [place] [address] PCP - General Family Medicine 05/18/22 Jovany Gonzalez MD [facility] [address] [facility] [address] [address] [place] [address] Orthopedics 02/15/17 Staci Woodward CORPORATE COMMUNICATIONS SPECIALIST [place] [address] [place], [place] [address] Nurse Practitioner Nurse Practitioner Psych/Mental Health 05/10/17 Reanna Smith, RD [place] [address] [place], [place] [address] Dairy Science Teacher Dietitian, Registered 07/25/19 Roshni Nascimento, RN Personal Advocate & Liaison (PAL) Family Medicine 08/18/20 Kiet Swain MD [address] [place] [id number] Referring Physician Psychiatry 09/19/20 Winsome Pike APRN BOAT JOINER HELPER [address] [place] [id number] Nurse Practitioner Psychiatry 09/19/20 Tori Hines, [facility] [address] [place] [id number] Residential Appraiser Residential Appraiser - Clinical 09/19/20 Miranda Queen [facility] [address] [place] [address] Pharmacist Pharmacist 11/12/20 Marisel Armando MD [address] [place], [place] [id number] Gastroenterology 02/05/21 Wesley Barrett MD [address] [place] [address] [address] [place], [place] [id number] Assigned Neuroscience Provider 05/10/21 [place] [address] [place] [address] Assigned PCP 05/15/22 Katiana Read MD [address] [place] [address] Assigned Endocrinology Provider 06/19/22 [place] [address] [place] [address] Nurse Practitioner Nurse Practitioner 10/18/22 Elham Stack, [facility] [address] [place] [address] Pharmacist Pharmacist 10/19/22 Aubrey Jones MD [address] [place] [address] Cardiovascular Disease 03/28/23 Blanquita Morales Dairy Science Teacher Diabetes Education 04/25/23 documented as of this encounter
--- OUTSIDE RECORDS SUMMARY | 2023-08-03 09:57 | XMS_ITS | Encounter Summary ---
Author Name Unknown Organization [facility] Address [address] [place] [address]. [place] [address] Care Team Providers Care Steward/Stewardess Dining Room Name Role Phone Jovany Gonzalez MD Unavailable CrissyStaci jeong OBSTETRICIAN GYNECOLOGIST Unavailable [phone] Unavailable [phone] Roshni Nascimento RN Unavailable Unavailable Kiet Swain MD Unavailable [phone] Winsome Pike APRN PROCESS LINE OPERATOR Unavailable [phone] Tori Hines [facility] Unavailable Miranda Queen [facility] Unavailable Unavailable Marisel Armando MD Unavailable Wesley Barrett MD Unavailable [phone] Dyan Fuentes MD Primary Care Provider [phone] Dyan Fuentes MD Unavailable [phone] Katiana Read MD Unavailable [phone] Mary Del Cid OBSTETRICIAN GYNECOLOGIST Unavailable [phone] Elham Stack [facility] Unavailable [phone] Aubrey Jones MD Unavailable [phone] Blanquita Morales Unavailable Unavailable Reason for Visit * Reason Onset Date Comments Medication Refill 04/25/2023 Basaglar Encounter Details Date Type Department Care Team (Late st Contact Info) Description 04/25/2023 Refill [facility] [address] [facility] [address] [place] [address] Blanquita Morales Medication Refill (Basaglar) Social History Tobacco Use Types Packs/Day Years [...] week 10/16/2021 How [facility] services? 1 to 4 times per year 10/16/2021 Do you belong to any clubs o r organizations such as scientologist groups, unions, fraternal or athletic groups, or [...] Answer Date Recorded PHQ-2 Score 2 11/25/2022 [facility] [...] place to sleep or slept in a fci (including now)? No 10/16/2021 Adolescent Education Answer [...] encounter Miscellaneous Notes * Telephone Encounter - Katiana Read MD - 04/26/2023 1:30 PM CDT Rx sent. * Telephone Encounter - Blanquita Morales - 04/25/2023 2:[address] Read, I met with Kaila for a diabetes visit and her Basaglar prescription has not been updated so she is going to run out. Per 04/06/23 telephone encounter, it looks like 32 units was discussed. If this is accurate, please sign pended prescription reflecting 32 units Basaglar (versus 10 units). Thank you, Blanquita Morales RDN, LD, CDCES documented in this encounter Plan of Treatment Upcoming Encounters Date Type Department Care Team (Late st Contact Info) Description 08/18/2023 3:00 PM SIZE STAMPER Office Visit [facility] [address] [facility] [address] [place] [address] Katiana Read MD [address] [place] [address] documented as of this encounter Goals Goal [...] documented as of this encounter Care Teams Steward/Stewardess Dining Room Relationship Specialty [place] [address] [place] [address] PCP - General Family Medicine 05/18/22 Jovany Gonzalez MD [facility] [address] [facility] [address] [place], [place] [address] Orthopedics 02/15/17 Staci Woodward NP [place] [address] [place] [address] Nurse Practitioner Nurse Practitioner Psych/Mental Health 05/10/[address] [facility] [address] [place] [address] Corner Former Dietitian, Registered 07/25/19 Roshni Nascimento, RN Personal Advocate & Liaison (PAL) Family Medicine 08/18/20 Kiet Swain MD [address] [place] [address] [address] [place], [place] [address] Referring Physician Psychiatry 09/19/20 Winsome Pike APRN PROCESS LINE OPERATOR [address] [address] Nurse Practitioner Psychiatry 09/19/20 Tori Hines, [facility] [place], [place] [address] Poultry Buyer Poultry Buyer - Clinical 09/19/20 Miranda Queen [facility] [address] [place] [address] Pharmacist Pharmacist 11/12/20 Marisel Armando MD [address] [place], [place] [address] Gastroenterology 02/05/21 Wesley Barrett MD [address] [place] [address] [address] [place] [address] Assigned Neuroscience Provider 05/10/21 [place] [address] [place] [address] Assigned PCP 05/15/22 Katiana Read MD [address] [place] [address] [address] [place] [address] Assigned Endocrinology Provider 06/19/22 [place] [address] [place] [address] Nurse Practitioner Nurse Practitioner 10/18/22 [facility] [address] [place] [address] Pharmacist Pharmacist 10/19/22 Aubrey Jones MD [address] [place] [address] Cardiovascular Disease 03/28/23 Blanquita Morales Corner Former Diabetes Education 04/25/23 documented as of this encounter
--- OUTSIDE RECORDS SUMMARY | 2023-08-03 09:57 | XMS_ITS | Encounter Summary ---
Author Name Unknown Organization [facility] Address [address] [place] [address]. [place] [address] Care Team Providers Care Cotton Roll Packer Name Role Phone Jovany Gonzalez MD Unavailable CrissyStaci jeong RN TRAINING Unavailable Reanna Smith RD Unavailable [phone] Roshni Nascimento RN Unavailable Unavailable Kiet Swain MD Unavailable Winsome Pike APRN TRAVEL AGENCY MANAGER Unavailable [phone] Tori Hines [facility] Unavailable Miranda Queen [facility] Unavailable Unavailable Marisel Armando MD Unavailable Wesley Barrett MD Unavailable [phone] Dyan Fuentes MD Primary Care Provider [phone] Dyan Fuentes MD Unavailable [phone] Katiana Read MD Unavailable [phone] Mary Del Cid RN TRAINING Unavailable + [phone] Elham Stack [facility] Unavailable [phone] Aubrey Jones MD Unavailable [phone] Blanquita Morales Unavailable Unavailable Aubrey Jones MD Unavailable [phone] Encounter Details Date Type Department Care Team (Latest Contact Info) Description 05/11/2023 Travel Social History Tobacco Use Types Packs/Day [...] week 10/16/2021 How often do you attend [facility] or jehovah's witness services? 1 to 4 times per year 10/16/2021 Do you belong to any clubs o r organizations such as sabianist groups, unions, fraternal or athletic groups, or [...] Answer Date Recorded PHQ-2 Score 2 05/12/2023 [facility] - [...] PM CDT documented as of this encounter Plan of Treatment Upcoming Encounters Date Type Department Care Team (Late st Contact Info) Description 08/18/2023 3:00 PM DRY FOOD PRODUCTS MIXER Office Visit [facility] [address] [place] [phone] Katiana Read MD [address] [place] [address] documented as of this encounter Goals Goal Patient Goal Type Associated Problems Recent Progress Patient-Stated? Author Establish Regular Follow-Ups with PCP Care Plan HbA1C Not In Goal No Blaqnuita Morales Get HbA1C Level in Goal Care [...] Noted Time PHQ-9 Depression Total Score: 10 11/25/ 023 8:26 AM CDT documented as of this encounter Care Teams Cotton Roll Packer Relationship Specialty [place] [address] [place] [address] PCP - General Family Medicine 05/18/22 Jovany Gonzalez MD [facility] [address] [facility] [address] [place], [place] [address] Orthopedics 02/15/17 Staci Woodward, RN TRAINING [place] [address] [place], [place] [phone] Nurse Practitioner Nurse Practitioner Psych/Mental Health 05/10/17 Reanna Smith, RD [facility] [address] [place], [place] [phone] Advanced Practice Rn Dietitian, Registered 07/25/19 Roshni Nascimento, RN Personal Advocate & Liaison (PAL) Family Medicine 08/18/20 Kiet Swain MD [address] [place] [id number] Referring Physician Psychiatry 09/19/20 Winsome iPke APRN TRAVEL AGENCY MANAGER [address] [place] [address] Nurse Practitioner Psychiatry 09/19/20 Tori Hines, [facility] [address] [place] [address] Assembler Rubber Footwear Assembler Rubber Footwear - Clinical 09/19/20 [place] [address] [place] [address] Pharmacist Pharmacist 11/12/20 Marisel Armando MD [address] [place] [address] Gastroenterology 02/05/21 Wesley Barrett MD [address] [facility] [address] [place] [address] Assigned Neuroscience Provider 05/10/21 [place] [address] [place] [address] Assigned PCP 05/15/22 Katiana Read MD [address] [place] [address] Assigned Endocrinology Provider 06/19/22 [place] [address] [place] [address] Nurse Practitioner Nurse Practitioner 10/18/22 Elham Stack, [facility] [address] [place] [address] Pharmacist Pharmacist 10/19/22 Aubrey Jones MD [address] [place] [address] Cardiovascular Disease 03/28/23 Blanquita Morales Advanced Practice Rn Diabetes Education 04/25/23 Aubrey Jones MD [address] [place] [address] Assigned Heart and Vascular Provider 05/07/23 documented as of this encounter
--- OUTSIDE RECORDS SUMMARY | 2023-08-03 09:57 | XMS_ITS | Encounter Summary ---
Author Name Unknown Organization [facility] Address [address] [place] [address]. [place] [address] Care Team Providers Care Medical Delivery Technician Name Role Phone Jovany Gonzalez MD Unavailable CrissyStaci jeong PRECISION LATHE OPERATOR Unavailable [phone] Unavailable [phone] Roshni Nascimento RN Unavailable Unavailable Kiet Swain MD Unavailable [phone] Winsome Pike APRN BLANKMAKER Unavailable [phone] Tori Hines [facility] Unavailable Miranda Queen [facility] Unavailable Unavailable Marisel Armando MD Unavailable Wesley Barrett MD Unavailable [phone] Dyan Fuentes MD Primary Care Provider [phone] Dyan Fuentes MD Unavailable [phone] Katiana Read MD Unavailable [phone] Mary Del Cid PRECISION LATHE OPERATOR Unavailable + [phone] Elham Stack [facility] Unavailable [phone] Aubrey Jones MD Unavailable [phone] Blanquita Morales Unavailable Unavailable Aubrey Jones MD Unavailable [phone] Reason for Visit * Rehab Therapy Physical Therapy (Routine) - Closed Specialty Diagnoses / Procedures Referred By Contac t Referred To Contact Physical Therapy Diagnoses Chronic pain syndrome S/P lumbar laminectomy S/[place] [address] [place] [address] [facility] [place] [id number] [place] [address] [address] [place] [address] Referral ID Status Reason Start Date Expiration Date Visits Re quested Visits Authorized [id number] Closed 05/04/2023 07/10/2023 365 365 Encounter Details Date Type Department Care Team (Latest Contact Info) Description 05/11/2023 3:40 PM CDT Therapy Visit [facility] [address] [facility] [address] [place], [place] [address] Mary Del Cid, [place] [address] [place] [address] [place] [address] [id number] Chronic pain syndrome (Primary Dx) Social History [...] 10/16/2021 How often do you attend chur ch or yazidi services? 1 to 4 times per year 10/16/2021 Do you belong to any clubs o r organizations such as scientology groups, unions, fraternal or athletic groups, or [...] Answer Date Recorded PHQ-2 Score 2 05/12/2023 [facility]at ional [facility] - [...] as of this encounter Progress Notes * Dyan Villar - 05/11/2023 3:40 PM CDT PHYSICAL THERAPY EVALUATION Type of Visit: Evaluation See electronic medical record for Abuse and Falls Screening details. Subjective Patient reports many surgeries over the years and pain for many years all over that impacts everything she does. States she has been very sedentary since COVID and would like to be able to move better with less pain. Is very interested in getting a new TENS unit for her low back. Presenting condition or subjective complaint: Pain all over Date of onset: 04/18/23 Prior therapy history for the same diagnosis, illness or injury: No prior pain PT Living Environment Social support: Lives with who assists with ADL's Stairs to enter the home: does not have to use the stairs Ramp: yes Stairs inside the home: yes, however does not have to access them Help at home: Equipment owned: 4WW and cane, however prefers not to use them Employment: no Hobbies/Interests: video games Patient goals for therapy: Improve her balance has had many falls, wants to get stronger and be able to get the mailbox from the driveway Pain assessment: Currently has pain all over and various ratings. Objective Posture: forward head, rounded shoulders, right shoulder depression Gait: shuffled, very rigid and unsteady, wide CARYN Balance: impaired balance in standing, very unsteady, wide CARYN ROM: rigid in her movement, flexion approx 70%, ext limited due to pain, minimal lumbar rotation due to pain Functional Strength: sit to stand- requires arm rest and unsteady Assessment & Plan CLINICAL IMPRESSIONS Medical Diagnosis: Chronic Pain syndrome Treatment Diagnosis: Chronic Pain Syndrome Impression/Assessment: Patient is a 62 year old female with Chronic Pain Syndrome complaints. The following significant findings have been identified: Pain, Decreased ROM/flexibility, Decreased jointmobility, Decreased strength, Impaired balance, Decreased proprioception, Impaired gait, Impaired muscle performance, Decreased activity tolerance, Impaired posture, and Instability. These impairments interfere with their ability to perform self care tasks, recreational activities, brim flexer, household mobility, and community mobility as compared to previous level of function. Clinical Decision Making (Complexity): Clinical Presentation: Stable/Uncomplicated Clinical Presentation Rationale: based on medical and personal factors listed in PT evaluation Clinical Decision Making (Complexity): Low complexity PLAN OF CARE Treatment Interventions: Interventions: Gait Training, Neuromuscular Re-education, Therapeutic Activity, Therapeutic Exercise, Self-Care/Home Management, Assisted Goals PT Goal 1 Goal Identifier: walking Goal Description: Able to walk continously for 20 minutes, no increase in pain Rationale: to maximize safety and independence with performance of ADLs and functional tasks;to maximize safety and independence within the home;to maximize safety and independence within the community;to maximize safety and independence with self cares Target Date: 08/04/22 Frequency of Treatment: 1x/wk/4 weeks, 2x mo/2months, Duration of Treatment: 08/04/2022 Education Assessment: Risks and benefits of evaluation/treatment have been explained. Patient/Family/caregiver agrees with Plan of Care. Evaluation Time: PT Vega Dawkins Minutes (11321): 30 Signing Clinician: Dyan Brito [facility] OUTPATIENT PHYSICAL THERAPY PLAN OF TREATMENT FOR OUTPATIENT REHABILITATION Patient's Last Name, First Name, Kaila Doyle Date of : 1960 Provider's Name [facility] Onset Date: 04/18/23 Start of Care Date: 05/11/23 Medical Diagnosis: Chronic Pain syndrome PT Treatment Diagnosis: Chronic Pain Syndrome Plan of Treatment Frequency/Duration: 1x/wk/4 weeks, 2x mo/2months,/ 08/04/2022 Certification date from 05/11/23 to 08/04/22 See note for plan of treatment details and functional goals Dyan Jian I CERTIFY THE NEED FOR THESE SERVICES FURNISHED UNDER THIS PLAN OF TREATMENT AND WHILE UNDER MY CARE (Physician attestation of this document indicates review and certification of the therapy plan). Referring Provider: Mary Del Cid Initial Assessment See [facility] Evaluation- Start of Care Date: 05/11/23 REPRESENTATIVE Associated attestation - Mary Del Cid NP - 05/16/2023 7:58 AM BANK REPRESENTATIVE Physician Attestation I agree with the information in this note. Mary Del Cid NP documented in this encounter Plan of Treatment Upcoming Encounters Date Type Department Care Team (Late st Contact Info) Description 08/18/2023 3:00 PM BANK REPRESENTATIVE Office Visit [facility] [address] [facility] [address] [place] [address] Katiana Read MD [address] [place] [address] Scheduled Referrals Name Type Priority Associated Diagnoses Orde r Schedule PAIN PT EVAL AND TREAT Referral Routine Chronic pain syndrome S/P lumbar laminectomy S/P cervical spinal fusion Ordered: 04/18/2023 documented as of this encounter Goals Goal [...] Needed to Optimize Self-Care Behaviors Blanquita Stuart J Being Active - get regular physical activity, [...] documented as of this encounter Care Teams Medical Delivery Technician Relationship Specialty [place] [address] [place] [address] PCP - General Family Medicine 05/18/22 Jovany Gonzalez MD [facility] [address] [place], [place] [address] Orthopedics 02/15/17 Staci Woodward NP [place] [address] [place], [place] [address] Nurse Practitioner Nurse Practitioner Psych/Mental Health 05/10/17 Reanna Smith, LAURA [facility] [address] [place] [address] Director Bioinformatics Dietitian, Registered 07/25/19 Roshni Nascimento, RN Personal Advocate & Liaison (PAL) Family Medicine 08/18/20 Kiet Sawin MD [address] [place], [place] [id number] [place] [address] Referring Physician Psychiatry 09/19/20 Winsome Pike APRN BLANKMAKER [address] [place] [address] Nurse Practitioner Psychiatry 09/19/20 Tori Hines, [facility] [address] [place] [phone] Delivery Room Supervisor Delivery Room Supervisor - Clinical 09/19/20 Miranda Queen [facility] [address] [place] [address] Pharmacist Pharmacist 11/12/20 Marisel Armando MD [address] [place], [place] [address] Gastroenterology 02/05/21 Wesley Barrett MD [address] [place] [address] [address] [place], [place] [address] Assigned Neuroscience Provider 05/10/21 [place] [address] [place] [address] Assigned PCP 05/15/22 Katiana Read MD [address] [place] [address] Assigned Endocrinology Provider 06/19/22 [place] [address] [place] [address] Nurse Practitioner Nurse Practitioner 10/18/22 [facility] [address] [place] [address] Pharmacist Pharmacist 10/19/22 Aubrey Jones MD [address] [place] [address] Cardiovascular Disease 03/28/23 Blanquita Morales Director Bioinformatics Diabetes Education 04/25/23 Aubrey Jones MD [address] [place] [address] Assigned Heart and Vascular Provider 05/07/23 documented as of this encounter
--- OUTSIDE RECORDS SUMMARY | 2023-08-03 09:57 | XMS_ITS | Encounter Summary ---
Author Name Unknown Organization [facility] Address [address] [place] [address]. [place] [address] Care Team Providers Care Truck Operator Name Role Phone Jovany Gonzalez MD Unavailable CrissyStaci jeong NP Unavailable [phone] Unavailable [phone] Roshni Nascimento RN Unavailable Unavailable Kiet Swain MD Unavailable [phone] Winsome Pike APRN DIRECTOR OF INSTRUMENTAL MUSIC Unavailable [phone] Tori Hines [facility] Unavailable Miranda Queen [facility] Unavailable Unavailable Marisel Armando MD Unavailable Wesley Barrett MD Unavailable [phone] Dyan Fuentes MD Primary Care Provider [phone] Dyan Fuentes MD Unavailable [phone] Katiana Read MD Unavailable [phone] Mary Del Cid LINE OUT WORKER Unavailable [phone] Elham Stack [facility] Unavailable [phone] Aubrey Jones MD Unavailable [phone] Encounter Details Date Type Department Care Team (Latest Contact Info) Description 04/18/2023 Travel Social History Tobacco Use Types Packs/Day [...] How often do you attend chur or anabaptist services? 1 to 4 times per year 10/16/2021 Do you belong to any clubs o r organizations such as orthodox groups, unions, fraternal or athletic groups, [...] Answer Date Recorded PHQ-2 Score 2 11/25/2022 [facility] of Occupat ional Health - Occupational [...] place to sleep or slept in a senior living (including now)? No 10/16/2021 Adolescent Education Answer [...] st Contact Info) Description 08/18/2023 3:00 PM FASHION DESIGNER Office Visit [facility] [address] [place] [address] Katiana Read MD [address] [place], [place] [address] documented as of this encounter Visit Diagnoses Not on filedocumented in this encounter Additional Health Concerns Assessment Noted Time PHQ-9 Depression Total Score: 10 11/25/ 023 8:26 AM CDT documented as of this encounter Care Teams Truck Operator Relationship Specialty [place] [address] [place] [address] PCP - General Family Medicine 05/18/22 Jovany Gonzalez MD [facility] [address] [facility] [address] [place] [address] Orthopedics 02/15/17 Staci Woodward, LINE OUT WORKER [facility] [address] [place], [place] [address] Nurse Practitioner Nurse Practitioner Psych/Mental Health 05/10/17 Reanna Smith, RD [facility] [address] [place], [place] [address] Director Of Cardiology Dietitian, Registered 07/25/19 Roshni Nascimento, RN Personal Advocate & Liaison (PAL) Family Medicine 08/18/20 Kiet Swain MD [address] [facility] [address] [place], [place] [address] Referring Physician Psychiatry 09/19/20 Winsome Pike APRN DIRECTOR OF INSTRUMENTAL MUSIC [address] [place], [place] [address] Nurse Practitioner Psychiatry 09/19/20 Tori Hines, [facility] [address] [place] [address] Ground Water Pump Installer Ground Water Pump Installer - Clinical 09/19/20 Miranda Queen [facility] [address] [place] [address] Pharmacist Pharmacist 11/12/20 Marisel Armando MD [address] [place] [address] Gastroenterology 02/05/21 Wesley Barrett MD [address] [facility] [address] [place] [address] Assigned Neuroscience Provider 05/10/21 [place] [address] [place] [address] Assigned PCP 05/15/22 Katiana Read MD [address] [facility] [address] [place] [address] Assigned Endocrinology Provider 06/19/22 Mary Del Cid, RAFAEL [address] [place] [address] Nurse Practitioner Nurse Practitioner 10/18/22 [facility] [address] [place] [address] Pharmacist Pharmacist 10/19/22 Aubrey Jones MD [address] [facility] [address] [place] [address] Cardiovascular Disease 03/28/23 documented as of this encounter
--- OUTSIDE RECORDS SUMMARY | 2023-08-03 09:57 | XMS_ITS | Encounter Summary ---
Author Name Unknown Organization [place] Address [address] [place] [address]. [place] [address] Care Team Providers Care Plant Guide Name Role Phone Jovany Gonzalez MD Unavailable CrissyStaci jeong NP Unavailable [phone] Unavailable [phone] Roshni Nascimento RN Unavailable Unavailable Kiet Swain MD Unavailable [phone] Winsome Pike APRN HOME CARE COORDINATOR Unavailable [phone] [facility] Unavailable Miranda Queen [facility] Unavailable Unavailable Marisel Armando MD Unavailable Wesley Barrett MD Unavailable [phone] Dyan Fuentes MD Primary Care Provider [phone] Dyan Fuentes MD Unavailable [phone] Katiana Read MD Unavailable [phone] Mary Del Cid WHITE METAL CASTER Unavailable [phone] Elham Stack [facility] Unavailable [phone] Aubrey Jones MD Unavailable [phone] Blanquita Morales Unavailable Unavailable Reason for Visit * Reason Comments New Patient * CV Cardio consult (Routine: Next available opening) - Closed Specialty Diagnoses / Procedures Referred By Contact Referred To Contact Cardiovascular Disease Diagnoses [place] [address] [place] [address] Referral ID Status Reason Start Date Expiration Date Visits Re quested Visits Authorized [id number] Closed 12/30/2022 12/30/2023 1 1 Encounter Details Date Type Department Care Team (Latest Contact Info) Description 05/03/2023 10:30 AM CDT Office Visit [facility] [address] [place] [address] Aubrey Jones MD [address] [place], [place] [address] Abnormal electrocardiogram Social History Tobacco Use Types Packs/Day Years Used Date Smoking Tobacco: Every Day Cigarettes 1 50 Smokeless Tobacco: Never Tobacco Cessation:Ready to Q uit: Not Asked; Counseling Given: Not Answered Alcohol Use Standard Drinks/Week [...] often do you attend chur ch or yazidism services? 1 to 4 times per year [...] Answer Date Recorded PHQ-2 Score 2 [facility]2022 [facility] - Occupational Stress Questionnaire Answer Date [...] place to sleep or slept in a alf (including now)? No 10/16/2021 Adolescent Education Answer [...] PM CDT documented as of this encounter Last Filed Vital Signs Vital Sign Reading Time Taken Comments Blood Pressure 142/78 05/03/2023 10:26 AM CDT Pulse 88 05/03/2023 10:26 AM CDT Temperature - - Respiratory Rate - - Oxygen Saturation 95% 05/03/2023 10:26 AM CDT Inhaled Oxygen Concentration - - Weight 111.1 kg (245 lb) 05/03/2023 10:26 AM CDT Height 172.7 cm (5' 8) 05/03/2023 10:26 AM CDT Body Mass Index 37.25 05/03/2023 10:26 AM CDT documented in this encounter Progress Notes * Aubrey Jones MD - 05/03/2023 10:30 AM CDT HISTORY OF PRESENT ILLNESS: Kaila Hernandez a 62 year old female with 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 The reason for drawing the troponin levels was not stated in the chart, but there were no ECG changes and no complaints of anginal chest pain. As part of her evaluation, she underwent an echocardiogram that showed no regional wall motion abnormalities, mild concentric left ventricular perjury, and borderline dilatation of the ascending aorta, but no significant valvular heart disease and a normal ejection fraction of 65%. The patient's coronary factors include a longstanding smoking history of 1 pack/day, diabetes mellitus, hypertension, and a family history of heart disease. She denies previous [place]. She receives excellent attentive care from her remote broadcast technician and is on a statin drug chronically. The patient admits to a very sedentary lifestyle which she attributes to arthritic pain. She does not describe typical chest arm neck jaw or back discomfort with exertion, or change in mild chronic dyspnea which she attributes to deconditioning and cigarette use. The patient reports being diagnosed with Takotsubo stress cardiomyopathy at [facility] several years ago, but made a full recovery. Past Medical History 1) obesity 2) Generalized Anxiety/Depression 3) Essential hypertension 4) Dyslipidemia managed by remote broadcast technician 5) Chronic pancreatitis 6) Cervical/lumbar/hip osteoarthritis sp surgery . History of avascular necrosis right hip and sepsis requiring removal of hip prosthesis and eventual repeat hip surgery 7) sp cholecystectomy 8) sp SORIN/BSO pelvic suspension 9) Type 2 diabetes mellitus with severe neuropathy. 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 Alcohol rarely Tobacco 1PPD Orders this Visit: Orders Placed This Encounter Procedures EKG 12-lead complete w/read - Clinics (performed today) No orders of the defined types were placed in this encounter. There are no discontinued medications. Encounter Diagnosis Name Primary? Abnormal electrocardiogram CURRENT MEDICATIONS: Current Outpatient Medications Medication Sig Dispense Refill albuterol (PROAIR HFA/PROVENTIL HFA/VENTOLIN HFA) 108 (90 Base) MCG/ACT inhaler Inhale 2 puffs intothe lungs every 4 hours as needed for shortness of breath / dyspnea or wheezing 8.5 g 0 amLODIPine (NORVASC) 10 MG tablet Take 1 tablet (10 mg) by mouth daily 90 tablet 3 aspirin 81 MG EC tablet Take 81 mg by mouth daily brexpiprazole (REXULTI) 2 MG tablet Take 2 mg by mouth daily buprenorphine HCl-naloxone HCl (SUBOXONE) 4-[address] 0.5 Film under the tongue 4 times daily Fill and start 04/15/23 60 Film 0 calcium carbonate (OS-ALISA) 1500 (600 Ca) MG tablet Take 1 tablet (600 mg) by mouth 2 times daily (with meals) 100 tablet 0 clonazePAM (KLONOPIN) 1 MG tablet Take 1 mg by mouth 2 times daily Continuous Blood Gluc Grounding Engineer (DEXCOM G6 BUCKLE GLUER) ANITA USE DAILY 1 each 0 Continuous [...] mouth daily (with breakfast) 100 tablet 1 hydrOXYzine (ATARAX) 25 MG tablet Take 25 mg by mouth 4 times daily insulin aspart (NOVOLOG FLEXPEN) 100 UNIT/ML pen INJECT 1 UNIT FOR 50 POINTS ABOVE 150 WITH EACH MEAL (TOTAL DAILY DOSE 10-15 UNITS PER DAY) 15 mL 1 insulin glargine (BASAGLAR KWIKPEN) 100 UNIT/ML pen Inject 32 Units Subcutaneous every morning 15 mL 1 levothyroxine (SYNTHROID/LEVOTHROID) 175 MCG tablet Take 2 tablets (350 mcg) by mouth daily 180 tablet 1 methocarbamol (ROBAXIN) 500 MG tablet Take 2 tablets (1,000 mg) by mouth 4 times daily 150 tablet 2 metoprolol tartrate (LOPRESSOR) 25 MG tablet TAKE 1 TABLET BY MOUTH TWICE A DAY 180 tablet 3 naloxone (NARCAN) 4 MG/0.1ML nasal spray Tinnie 1 spray (4 mg) into one nostril alternating nostrilsonce as needed for opioid reversal 0.2 mL 0 nitroGLYcerin (NITROSTAT) 0.[address] 1 tablet (0.4 mg) under the tongue every 5minutes as needed for chest pain 25 tablet 0 nystatin (MYCOSTATIN) 079959 UNIT/GM external ointment Apply topically 2 times daily as needed omega-3 acid ethyl esters (LOVAZA) 1 g capsule TAKE 2 CAPSULES BY MOUTH TWICE A DAY 360 capsule 1 ondansetron (ZOFRAN) 8 MG tablet Take 1 [...] tablet Take 1 tablet by mouth daily colestipol (COLESTID) 1 g tablet Take 1 tablet by mouth 2 times daily (Patient not taking: Reportedon 05/03/2023) ALLERGIES Allergies Allergen Reactions Bees Anaphylaxis Levaquin [Levofloxacin Hemihydrate] Rash Nsaids Hx GI Bleed Reglan [Metoclopramide Hcl] Hives Droperidol Other (See Comments) Behavioral changes Nalbuphine Hcl Behavioral changes Phenergan [Promethazine] Other (See Comments) Patient reports she gets mean & jerky PAST MEDICAL, SURGICAL, FAMILY, SOCIAL HISTORY: History was reviewed and updated as needed, see medical record. Review of Systems: A 12-point review of systems was completed, see medical record for detailed review of systems information. Physical Exam: Vitals: BP (!) 142/78 (BP Location: Right arm, Patient Position: Sitting, Cuff Size: Adult Large) Pulse 88 Ht 1.727 m (5' 8) Wt 111.1 kg (245 lb) LMP (LMP Unknown) SpO2 95% BMI 37.25 kg/m?? Constitutional: No apparent distress intelligent and cooperative HEENT: pupils equal round reactive to light, thyroid normal size, JVP is normal Chest: Clear to percussion and auscultation Cardiac: Normal S1, normal S2 no S3, no murmur or click Abdomen: no tenderness, did not want to get up to table for exam Extremitiies: no edema. Neurological: Cranial nerves II through XII are intact, strength equal and symmetrical, displays normal insight and judgment ASSESSMENT: Although the patient has multiple coronary risk factors, she is free of cardiovascular symptoms. Her echocardiogram shows mild concentric left ventricular hypertrophy with no regional wall motion abnormalities, and I do not believe there is any specific abnormality that requires furthertesting as a result of her echo. In the absence of anginal symptoms, I would not advise any furthertesting at this time but would focus primarily on aggressive vascular intervention and medical therapy for prevention of adverse vascular events. I have urged her to stop smoking cigarettes and remain compliant with statin therapy. Should she experience symptoms of chest pain or dyspnea, further car diac testing such as a nuclear stress test or a coronary angiography be discussed at that time. RECOMMENDATIONS: 1) Discontinue all tobacco use 2) Mediterranean style diet / physical rehabilitation 3) If she develops anginal symptoms, would consider either nuclear stress test or coronary angiography Recent Lab Results: I have personally reviewed the TTE and agree with the interpretation. She has mild LVH, but normal LVEF and no RWMA or valve disease. ECG shows Poor R wave progression but no specific abnormality LIPID RESULTS: Lab Results Component Value Date CHOL 210 (H) 10/04/2022 CHOL 228 (H) 11/17/2020 HDL 64 10/04/2022 HDL 64 11/17/2020 LDL 10/04/2022 Comment: Cannot estimate LDL when triglyceride exceeds 400 mg/dL LDL 50 10/04/2022 LDL 108 (H) 11/17/2020 TRIG 596 (H) 10/04/2022 TRIG 279 (H) 11/17/2020 CHOLHDLRATIO 5.4 (H) 10/01/2009 LIVER ENZYME RESULTS: Lab Results Component Value Date AST 15 2022 AST 150 (H) 01/18/2021 ALT 8 (L) 2022 ALT 56 (H) 01/18/2021 CBC RESULTS: Lab Results Component Value Date WBC 2.8 (L) 2022 WBC 2.1 (L) 01/18/2021 RBC 2.88 (L) 2022 RBC 2.37 (L) 01/18/2021 HGB 9.5 (L) 2022 HGB 8.2 (L) 01/18/2021 HCT 29.1 (L) 2022 HCT 25.5 (L) 01/18/2021 MCV 101 (H) 2022 MCV 108 (H) 01/18/2021 MCH 33.0 2022 MCH 34.6 (H) 01/18/2021 MCHC 32.6 2022 MCHC 32.2 01/18/2021 RDW 15.7 (H) 2022 RDW 19.3 (H) 01/18/2021 PLT 154 2022 PLT 115 (L) 01/18/2021 BMP RESULTS: Lab Results Component Value Date NA 138 2022 NA 141 01/18/2021 POTASSIUM 4.3 2022 POTASSIUM 4.8 11/16/2021 POTASSIUM 3.9 01/18/2021 CHLORIDE 104 2022 CHLORIDE 104 11/16/2021 CHLORIDE 109 01/18/2021 CO2 24 2022 CO2 29 11/16/2021 CO2 27 01/18/2021 ANIONGAP 10 2022 ANIONGAP 5 11/16/2021 ANIONGAP 5 01/18/2021 GLC 206 (H) 2022 GLC 211 (H) 11/16/2021 GLC 159 (H) 01/18/2021 BUN 7.9 (L) 2022 BUN 16 11/16/2021 BUN 8 01/18/2021 CR 1.00 (H) 2022 CR 0.74 01/18/2021 GFRESTIMATED 63 2022 GFRESTIMATED 87 01/18/2021 GFRESTBLACK >90 01/18/2021 ALISA 8.5 (L) 2022 ALISA 8.2 (L) 01/18/2021 A1C RESULTS: Lab Results Component Value Date A1C 6.5 (H) 10/16/2022 A1C 5.6 10/27/2020 INR RESULTS: Lab Results Component Value Date INR 1.05 10/17/2021 INR 0.94 05/18/2021 INR 1.07 10/27/2020 INR 1.09 08/12/2020 We greatly appreciate the opportunity to be involved in the care of your patient, Kaila Hernandez. Sincerely, Aubrey [place] [address] [place] [address] documented in this encounter Plan of Treatment Upcoming Encounters Date Type Department Care Team (Late st Contact Info) Description 08/18/2023 3:00 PM YARDER ENGINEER Office Visit [facility] [address] [place] [address] Katiana Read MD [address] [place] [address] documented as of this encounter Goals Goal [...] Procedure Name Priority Date/Time Associated Diagnosis Comments EKG 12-LEAD COMPLETE W/READ - CLINICS Routine 05/03/2023 Abnormal electrocardiogram documented in this encounter Results * EKG 12-lead complete w/read - Clinics (performed today) (05/03/2023) Aubrey Jones MD ECG ORDERABLES documented in this encounter Visit Diagnoses Diagnosis Abnormal electrocardiogram Nonspecific abnormal electrocardiogram (ECG) (EKG) documented in this encounter Additional Health Concerns Problem Noted Date Diagnosed Date HbA1C Not In Goal 04/25/2023 Diabetes Self-Management Edu cation Needed to Optimize Self-Care Behaviors 04/25/2023 Assessment Noted Time PHQ-9 Depression Total Score: 10 023 8:26 AM CDT documented as of this encounter Care Teams Plant Guide Relationship Specialty [place] [address] [place] [address] PCP - General Family Medicine 05/18/22 Jovany Gonzalez MD [facility] [address] [place], [place] [address] Orthopedics 02/15/17 Staci Woodward NP [facility] [address] [place], [place] [address] Nurse Practitioner Nurse Practitioner Psych/Mental Health 05/10/17 Reanna Smith, [facility] [address] [place] [address] Corrosion Control Specialist Dietitian, Registered 07/25/19 Roshni Nascimento, RN Personal Advocate & Liaison (PAL) Family Medicine 08/18/20 Kiet Swain MD [address] [place], [place] [address] [place] [address] Referring Physician Psychiatry 09/19/20 Winsome Pike APRN HOME CARE COORDINATOR [address] [place] [address] 728324 Nurse Practitioner Psychiatry 09/19/20 Tori Hines, [facility] [address] [place] [address] [id number] Accounting/Finance Tutor Accounting/Finance Tutor - Clinical 09/19/20 Miranda Queen [facility] [address] [place] [address] Pharmacist Pharmacist 11/12/20 Marisel Armando MD [address] [place], [place] [address] Gastroenterology 02/05/21 Wesley Barrett MD [address] [place] [address] [address] [place], [place] [address] Assigned Neuroscience Provider 05/10/21 [place] [address] [place] [address] Assigned PCP 05/15/22 Katiana Read MD [address] [place] [address] Assigned Endocrinology Provider 06/19/22 [place] [address] [place] [address] Nurse Practitioner Nurse Practitioner 10/18/22 [facility] [address] [place] [address] Pharmacist Pharmacist 10/19/22 Aubrey Jones MD [address] [place] [address] Cardiovascular Disease 03/28/23 Blanquita Morales Corrosion Control Specialist Diabetes Education 04/25/23 documented as of this encounter
--- OUTSIDE RECORDS SUMMARY | 2023-08-03 09:57 | XMS_ITS | Encounter Summary ---
Author Name Unknown Organization [facility] Address [address] [place] [address]. [place] [address] Care Team Providers Care Lead Operator Name Role Phone Jovany Gonzalez MD Unavailable CrissyStaci jeong NP Unavailable [phone] Unavailable [phone] Roshni Nascimento RN Unavailable Unavailable Kiet Swain MD Unavailable Winsome Pike APRN SADDLE CUTTER Unavailable [phone] Tori Hines [facility] Unavailable Miranda Queen [facility] Unavailable Unavailable Marisel Armando MD Unavailable Wesley Barrett MD Unavailable [phone] Dyan Fuentes MD Primary Care Provider [phone] Dyan Fuentes MD Unavailable [phone] Katiana Read MD Unavailable [phone] Mary Del Cid OTHER SALES SUPPORT WORKER Unavailable [phone] Elham Stack [facility] Unavailable [phone] Aubrey Jones MD Unavailable [phone] Blanquita Morales Unavailable Unavailable Encounter Details Date Type Department Care Team (Late st Contact Info) Description 05/03/2023 [facility] [address] [place] [address] [place] [address] [place] [address] Social History Tobacco Use Types Packs/Day Years [...] week 10/16/2021 How often do you attend [facility] or gnosticist services? 1 to 4 times per year 10/16/2021 Do you belong to any clubs o r organizations such as anabaptism groups, unions, fraternal or athletic groups, or [...] Answer Date Recorded PHQ-2 Score 2 11/25/2022 [facility] - Occupational Stress [...] Telephone Encounter - Roshni Nascimento RN - 05/03/2023 2:01 PM CDT Pt requesting RF on albuterol This has not been filled in over 1 year. She reports more trouble breathing and did schedule visit to discuss with PCP on 05/12 OK for RF? Roshni Nascimento RN documented in this encounter Plan of Treatment Upcoming Encounters Date Type Department Care Team (Late st Contact Info) Description 08/18/2023 3:00 PM CPA TAX Office Visit [facility] [address] [place] [address] Katiana Read MD [address] [place] [address] documented as of this encounter [...] of this encounter Visit Diagnoses Diagnosis Chronic obstructive pulmonary disease, unspecified COPD type (H) documented in this encounter Additional Health Concerns Problem Noted Date Diagnosed Date HbA1C Not In Goal 04/25/2023 Diabetes Self-Management Edu cation Needed to Optimize Self-Care Behaviors 04/25/2023 Assessment Noted Time PHQ-9 Depression Total Score: 10 023 8:26 AM CDT documented as of this encounter Care Teams Lead Operator Relationship Specialty [place] [address] [place] [address] PCP - General Family Medicine 05/18/22 Jovany Gonzalez MD [facility] [address] [facility] [address] [place], [place] [address] Orthopedics 02/15/17 Staci Woodward NP [place] [facility] [address] [place], [place] [address] Nurse Practitioner Nurse Practitioner Psych/Mental Health 05/10/17 Reanna Smith, [facility] [address] [place] [address] Appliance Adjuster Dietitian, Registered 07/25/19 Roshni Nascimento RN Personal Advocate & Liaison (PAL) Family Medicine 08/18/20 Kiet Swain MD [address] [facility] [address] [place], [place] [address] Referring Physician Psychiatry 09/19/20 Winsome Pike APRN SADDLE CUTTER [address] [place] [address] Nurse Practitioner Psychiatry 09/19/20 Tori Hines, [facility] [address] [place] [address] Art Handler Art Handler - Clinical 09/19/20 Miranda Queen [facility] [address] [place] [address] Pharmacist Pharmacist 11/12/20 Marisel Armando MD [address] [place], [place] 3[address] Gastroenterology 02/05/21 Wesley Barrett MD [address] [facility] [address] [place], [place] [address] Assigned Neuroscience Provider 05/10/21 [place] [address] [place] [address] Assigned PCP 05/15/22 Katiana Read MD [address] [facility] [address] [place] [address] Assigned Endocrinology Provider 06/19/22 [place] [address] [place] [address] Nurse Practitioner Nurse Practitioner 10/18/22 Elham Stack [facility] [address] [place] [address] Pharmacist Pharmacist 10/19/22 Aubrey Jones MD [address] [place] [address] Cardiovascular Disease 03/28/23 Blanquita Morales Appliance Adjuster Diabetes Education 04/25/23 documented as of this encounter
--- OUTSIDE RECORDS SUMMARY | 2023-08-03 09:57 | XMS_ITS | Encounter Summary ---
Author Name Unknown Organization [place] Address [address] [place] [address]. [place] [address] Care Team Providers Care Forming Machine Adjuster Name Role Phone Jovany Gonzalez MD Unavailable CrissyStaci jeong DICE SPOTTER Unavailable [phone] Unavailable [phone] Roshni Nascimento RN Unavailable Unavailable Kiet Swain MD Unavailable [phone] Winsome Pike APRN NUCLEAR PLANT INSTRUMENT TECHNICIAN Unavailable [phone] Tori Hines [facility] Unavailable Miranda Queen [facility] Unavailable Unavailable Marisel Armando MD Unavailable Wesley Barrett MD Unavailable [phone] Dyan Fuentes MD Primary Care Provider [phone] Dyan Fuentes MD Unavailable [phone] Katiana Read MD Unavailable [phone] Mary Del Cid DICE SPOTTER Unavailable [phone] Elham Stack [facility] Unavailable [phone] Aubrey Jones MD Unavailable [phone] Blanquita Morales Unavailable Unavailable Encounter Details Date Type Department Care Team (Latest Contact Info) Description 05/03/2023 Travel Social History Tobacco Use Types Packs/Day [...] How often do you attend chur or orthodox services? 1 to 4 times per year [...] Date Recorded PHQ-2 Score 2 11/25/2022 [facility] - [...] place to sleep or slept in a [place] health [place] facility (including now)? No 10/16/2021 Adolescent Education Answer [...] st Contact Info) Description 08/18/2023 3:00 PM OUTSIDE SALES EXECUTIVE Office Visit [facility] [address] [place] [address] Katiana Read MD [address] [place] [address] documented as of this encounter Goals Goal [...] documented as of this encounter Care Teams Forming Machine Adjuster Relationship Specialty [place] [address] [place] [address] PCP - General Family Medicine 05/18/22 Jovany Gonzalez MD [facility] [address] [facility] [address] [place] [address] Orthopedics 02/15/17 Staci Woodward, DICE SPOTTER [place] [address] [place], [place] [address] Nurse Practitioner Nurse Practitioner Psych/Mental Health 05/10/17 Reanna Smith, RD [place] [address] [place], [place] [address] Flow Floor Attendant Dietitian, Registered 07/25/19 Roshni Nascimento, RN Personal Advocate & Liaison (PAL) Family Medicine 08/18/20 Kiet Swain MD [address] [place] [id number] Referring Physician Psychiatry 09/19/20 Winsome Pike APRN NUCLEAR PLANT INSTRUMENT TECHNICIAN [address] [place] [address] Nurse Practitioner Psychiatry 09/19/20 Tori Hines, [facility] [address] [place] [address] Cracking And Fanning Machine Operator Cracking And Fanning Machine Operator - Clinical 09/19/20 Miranda Queen [facility] [address] [place] [address] Pharmacist Pharmacist 11/12/20 Marisel Armando MD [address] [place] [address] Gastroenterology 02/05/21 Wesley Barrett MD [address] [facility] [address] [place] [address] Assigned Neuroscience Provider 05/10/21 [place] [address] [place] [address] Assigned PCP 05/15/22 Katiana Read MD [address] [facility] [address] [place] [address] Assigned Endocrinology Provider 06/19/22 [place] [address] [place] [address] Nurse Practitioner Nurse Practitioner 10/18/22 [facility] [address] [place] [address] Pharmacist Pharmacist 10/19/22 Aubrey Jones MD [address] [place] [address] Cardiovascular Disease 03/28/23 Blanquita Morales Flow Floor Attendant Diabetes Education 04/25/23 documented as of this encounter
--- OUTSIDE RECORDS SUMMARY | 2023-08-03 09:57 | XMS_ITS | Encounter Summary ---
Author Name Unknown Organization [facility] Address [address] [place] [address]. [place] [address] Care Team Providers Care Digital Court Reporter Name Role Phone Jovany Gonzalez MD Unavailable [phone] CrissyStaci jeong DB2 DEVELOPER Unavailable [phone] Unavailable [phone] Roshni Nascimento RN Unavailable Unavailable Kiet Swain MD Unavailable [phone] Winsome Pike APRN ENGAGEMENT MGR Unavailable [phone] Tori Hines [facility] Unavailable Miranda Queen [facility] Unavailable Unavailable Marisel Armando MD Unavailable Wesley Barrett MD Unavailable [phone] Dyan Fuentes MD Primary Care Provider [phone] Dyan Fuentes MD Unavailable [phone] Katiana Read MD Unavailable [phone] Mary Del Cid DB2 DEVELOPER Unavailable + [phone] Elham Stack [facility] Unavailable [phone] Aubrey Jones MD Unavailable [phone] Blanquita Morales Unavailable Unavailable Aubrey Jones MD Unavailable [phone] Reason for Visit * Reason Comments Breathing Problem Breathing problems h ave been getting worse over the past 4 months. Terrible cough x 4 months also that won't seem to clear. Recheck Medication Would like a few ref ills on some medications. Encounter Details Date Type Department Care Team (Late st Contact Info) Description 05/12/2023 2:30 PM CDT Office Visit [facility] [id number] [place] [id number] [place] [address] [place] [address] Chronic obstructive pulmonary disease, unspecified COPD type (H) (Primary Dx); Tobacco use disorder; Benign essential hypertension; Type 2 diabetes mellitus without complication, with long-term current use of insulin (H); Vitamin B12 deficiency; Hypertriglyceridemia ; Gastroesophageal reflux disease without esophagitis; Hyperlipidemia LDL goal <100; Abdominal pain, generalized; Elevated d-dimer Social History Tobacco Use Types Packs/Day Years [...] week 10/16/2021 How often do you attend [facility] or yarsanism services? 1 to 4 times per year 10/16/2021 Do you belong to any clubs o r organizations such as zoroastrianism groups, unions, fraternal or athletic groups, or [...] Answer Date Recorded PHQ-2 Score 2 05/12/2023 [facility]ational Stress Questionnaire Answer [...] Recorded In the last 10 days, have lois couch been in contact with someone who was confirmed or suspected to have Coronavirus/COVID-19? No / Unsure 04/18/2023 1:42 PM CDT documented as of this encounter Last Filed Vital Signs Vital Sign Reading Time Taken Comments Blood Pressure 110/68 05/12/2023 2:08 PM CDT Pulse 89 05/12/2023 2:08 PM CDT Temperature 37 ??C (98.6 ??F) 05/12/2023 2:08 PM CDT Respiratory Rate 20 05/12/2023 2:08 PM CDT Oxygen Saturation 90% 05/12/2023 2:08 PM CDT Inhaled Oxygen Concentration - - Weight 106.1 kg (234 lb) 05/12/2023 2:08 PM CDT Height 172.7 cm (5' 8) 05/12/2023 2:08 PM CDT Body Mass Index 35.58 05/12/2023 2:08 PM CDT documented in this encounter Progress Notes * Dyan Fuentes MD - 05/12/2023 2:30 PM CDT Assessment & Plan Chronic obstructive pulmonary disease, unspecified COPD type (H) - will add Trelegy. Previous to mediagnosis. Of note, no comment on hyperinflation on last 3 imaging studies. - albuterol (PROAIR HFA/PROVENTIL HFA/VENTOLIN HFA) 108 (90 Base) MCG/ACT inhaler; Inhale 2 puffs into the lungs every 4 hours as needed for shortness of breath or wheezing - Knfjffhdgmh-Vvgibzazr-Kmjplbfemt (TRELEGY ELLIPTA) 200-62.5-25 MCG/ACT oral inhaler; Inhale 1 puff into the lungs daily Benign essential hypertension - controlled, continue current - amLODIPine (NORVASC) 10 MG tablet; Take 1 tablet (10 mg) by mouth daily - metoprolol tartrate (LOPRESSOR) 25 MG tablet; TAKE 1 TABLET BY MOUTH TWICE A DAY Type 2 diabetes mellitus without complication, with long-term current use of insulin (H) = following with endo - Continuous Blood Gluc Sensor (DEXCOM G6 SENSOR) MISC; USE 1 SENSOR EVERY 10 DAYS Vitamin B12 deficiency - refills - cyanocobalamin (CYANOCOBALAMIN) 1000 MCG/ML injection; INJECT 1 ML (1000 MCG) INTRAMUSCULARLY EVERY 30 DAYS. DISCARD 28 DAYS AFTERFIRST USE Strength: 1,000 mcg/mL Hypertriglyceridemia - stable, refills - fenofibrate (TRICOR) 48 MG tablet; Take 1 tablet (48 mg) by mouth daily - rosuvastatin (CRESTOR) 40 MG tablet; Take 1 tablet (40 mg) by mouth daily - omega-3 acid ethyl esters (LOVAZA) 1 g capsule; Take 2 capsules by mouth 2 times daily Gastroesophageal reflux disease without esophagitis - stable, refills - pantoprazole (PROTONIX) 40 MG EC tablet; Take 1 tablet (40 mg) by mouth daily Hyperlipidemia LDL goal <100 - rosuvastatin (CRESTOR) 40 MG tablet; Take 1 tablet (40 mg) by mouth daily Abdominal pain, generalized - stable, refills - colestipol (COLESTID) 1 g tablet; Take 1 tablet (1 g) by mouth 2 times daily for 90 days Tobacco use disorder - planning to quit after she finishes current carton Elevated d-dimer - will re-run test to ensure has come down since November 2022. Dyan Fuentes MD [facility] Zeyad Bright is a 62 year old, presenting for the following health issues: Breathing Problem (Breathing problems have been getting worse over the past 4 months. Terrible cough x 4 months also that won't seem to clear. ) and Recheck Medication (Would like a few refills on some medications. ) 05/12/2023 2:06 PM Additional Questions Roomed by Roberta Petersen CMA Accompanied by Self History of Present Illness COPD: She presents for follow up of COPD. Overall, COPD symptoms are much worse since last visit. She has a lot more than usual fatigue or shortness of breath with exertion and more than usual shortness of breath at rest. She often coughs and does have change in sputum. No recent fever. She can walk the length of 3-5 rooms without stopping to rest. She can not walk a flight of stairs without resting. The patient has had no ED, urgent care, or hospital admissions because of COPD since the last visit. She eats 0-1 servings of fruits and vegetables daily.She consumes 0 sweetened beverage(s) daily.Sheexercises with enough effort to increase her heart rate 9 or less minutes per day. She exercises with enough effort to increase her heart rate 5 days per week. She is missing 1 dose(s) of medicationsper week. Medication Followup & Continued Troubles w/ Breathing Taking Medication as prescribed: yes Side Effects: None Medication Helping Symptoms: yes CT in November - showed bibasilar atelectasis Review of Systems Constitutional, HEENT, cardiovascular, pulmonary, gi and gu systems are negative, except as otherwise noted. Objective BP 110/68 (BP Location: Right arm, Patient Position: Sitting, Cuff Size: Adult Large) Pulse 89 Temp 98.6 ??F (37 ??C) (Oral) Resp 20 Ht 1.727 m (5' 8) Wt 106.1 kg (234 lb) LMP (LMP Unknown) SpO2 90% BMI 35.58 kg/m?? Body mass index is 35.58 kg/m??. Physical Exam GENERAL: healthy, alert and no distress NECK: no adenopathy, no asymmetry, masses, or scars and thyroid normal to palpation RESP: lungs clear to auscultation - no rales, rhonchi or wheezes CV: regular rate and rhythm, normal S1 S2, no S3 or S4, no murmur, click or rub, no peripheral edema and peripheral pulses strong Answers submitted by the patient for this visit: Patient Health Questionnaire (Submitted on 05/12/2023) If you checked off any problems, how difficult have these problems made it for you to do your work,take care of things at home, or get along with other people?: Very difficult PHQ9 TOTAL SCORE: 6 ANTHONY-7 (Submitted on 05/12/2023) ANTHONY 7 TOTAL SCORE: 2 COPD (Chronic Obstructive Pulmonary Disease) Visit Questionnaire (Submitted on 05/12/2023) Chief Complaint: Chronic problems general questions HPI Form Current status of COPD symptom:: much worse Status of fatigue and dyspnea with ambulation:: a lot more than usual Status of dyspnea:: more than usual Increase or change in cough or sputum:: often Have you noticed a change in your sputum/phlegm?: Yes Have you experienced a recent fever?: No Baseline ambulation without stopping to rest:: the length of 3-5 rooms Number of flights of stairs without resting:: None Have you had any Emergency Room, Urgent Care visits or a Hospital admission because of your COPD since your last office visit?: No General Questionnaire (Submitted on 05/12/2023) Chief Complaint: Chronic problems general questions HPI Form How many servings of fruits and vegetables do you eat daily?: 0-1 On average, how many sweetened beverages do you drink each day (Examples: soda, juice, sweet tea, etc. Do NOT count diet or artificially sweetened beverages)?: 0 How many minutes a day do you exercise enough to make your heart beat faster?: 9 or less How many days a week do you exercise enough to make your heart beat faster?: 5 How many days per week do you miss taking your medication?: 1 documented in this encounter Plan of Treatment Upcoming Encounters Date Type Department Care Team (Late st Contact Info) Description 08/18/2023 3:00 PM LEI MAKER Office Visit [facility] [address] [facility] [address] [place] [address] Katiana Read MD [address] [facility] [address] [place] [address] documented as of this encounter Goals Goal [...] Procedure Name Priority Date/Time Associated Diagnosis Comments D DIMER QUANTITATIVE Routine 05/12/2023 2:50 PM CDT Elevated d-dimer documented in this encounter Results * (ABNORMAL) D dimer, quantitative (05/12/2023 2:50 PM CDT) [facility] D-Dimer Quantitative 1.37(H) 0.00 - 0.50 ug/mL [...] out pulmonary embolism: The ADJUST-PE Study. COLE 2014;311:1949-9155.; HJ Parker et al. Diagnostic accuracy of conventional or age adjusted D-dimer cutoff values in older patients with suspected venous thromboembolism. Systemic review and meta-analysis. BMJ 2013:346:f2492. Dyan Fuentes MD LAB - BLOOD ORDER LENA [facility] [address] Lab (no room number, 1st floor of clinic) [place] [address], [facility] [phone] documented in this encounter Visit Diagnoses Diagnosis Chronic obstructive pulmonary disease, unspecified COPD type (H)- Primary Tobacco use disorder Benign essential hypertension Essential hypertension, benign Type 2 diabetes mellitus without complication, with long-term current use of insulin (H) Vitamin B12 deficiency Other B-complex deficiencies Hypertriglyceridemia Pure hyperglyceridemia Gastroesophageal reflux disease without esophagitis Esophageal reflux Hyperlipidemia LDL goal <100 Other and unspecified hyperlipidemia Abdominal pain, generalized Elevated d-dimer Abnormal coagulation profile documented in this encounter Additional Health Concerns Problem Noted Date Diagnosed Date HbA1C Not In Goal 04/25/2023 Diabetes Self-Management Edu cation Needed to Optimize Self-Care Behaviors 04/25/2023 Assessment Noted Time PHQ-9 Depression Total Score: 6 05/12/20 23 1:53 PM CDT documented as of this encounter Care Teams Digital Court Reporter Relationship Specialty [place] [address] [place] [address] PCP - General Family Medicine 05/18/22 Jovany Gonzalez MD [facility] [address] [facility] [address] [place], [place] [address] Orthopedics 02/15/17 Staci Woodward, DB2 DEVELOPER [place] [facility] [address] [place], [place] [address] Nurse Practitioner Nurse Practitioner Psych/Mental Health 05/10/17 Reanna Smith, RD [place] [address] [place], [place] [phone] Hook And Eye Sewing Machine Operator Dietitian, Registered 07/25/19 Roshni Nascimento, RN Personal Advocate & Liaison (PAL) Family Medicine 08/18/20 Kiet Swain MD [address] [place] [address] [phone] Referring Physician Psychiatry 09/19/20 Winsome Pike APRN ENGAGEMENT MGR [address] [place] [address] [phone] Nurse Practitioner Psychiatry 09/19/20 Tori Hines [facility] [address] [place] [phone] Sales Promotion Director Sales Promotion Director - Clinical 09/19/20 Miranda Queen [facility] [address] [place] [address] Pharmacist Pharmacist 11/12/20 Marisel Armando MD [address] [place], [place] [phone] Gastroenterology 02/05/21 Wesley Barrett MD [address] [facility] [address] [place] [address] Assigned Neuroscience Provider 05/10/21 [place] [address] [place] [address] Assigned PCP 05/15/22 Katiana Read MD [address] [place] [address] Assigned Endocrinology Provider 06/19/22 [place] [address] [place] [address] Nurse Practitioner Nurse Practitioner 10/18/22 Elham Stack, [facility] [address] [place] [address] Pharmacist Pharmacist 10/19/22 Aubrey Jones MD [address] [place] [address] Cardiovascular Disease 03/28/23 Blanquita Morales Hook And Eye Sewing Machine Operator Diabetes Education 04/25/23 Aubrey Jones MD [address] [place] [address] Assigned Heart and Vascular Provider 05/07/23 documented as of this encounter
--- OUTSIDE RECORDS SUMMARY | 2023-08-03 09:57 | XMS_ITS | Encounter Summary ---
Author Name Unknown Organization [facility] Address [address] [place] [address]. [place] [address] Care Team Providers Care Health Concierge Name Role Phone Jovany Gonzalez MD Unavailable [phone] CrissyStaci jeong PALLET STONE POSITIONER Unavailable [phone] Unavailable [phone] Roshni Nascimento RN Unavailable Unavailable Kiet Swain MD Unavailable [phone] Winsome Pike APRN GREEN END DEPARTMENT SUPERVISOR Unavailable [phone] Tori Hines [facility] Unavailable Miranda Queen [facility] Unavailable Unavailable Marisel Armando MD Unavailable Wesley Barrett MD Unavailable [phone] Dyan Fuentes MD Primary Care Provider [phone] Dyan Fuentes MD Unavailable [phone] Katiana Read MD Unavailable [phone] Mary Del Cid PALLET STONE POSITIONER Unavailable [phone] Elham Stack [facility] Unavailable [phone] Aubrey Jones MD Unavailable [phone] Blanquita Morales Unavailable Unavailable Aubrey Jones MD Unavailable [phone] Encounter Details Date Type Department Care Team (Latest Contact Info) Description 05/12/2023 Travel Social History Tobacco Use Types Packs/Day [...] week 10/16/2021 How often do you attend [facility] or [facility] services? 1 to 4 times per year 10/16/2021 Do you belong to any clubs o r organizations such as hindu groups, unions, fraternal or athletic groups, or [...] Answer Date Recorded PHQ-2 Score 2 05/12/2023 [facility] - [...] st Contact Info) Description 08/18/2023 3:00 PM SHANK BURNISHER Office Visit [facility] [address] [place] [phone] Katiana Read MD [address] [place] [address] documented as of this encounter Goals Goal [...] documented as of this encounter Care Teams Health Concierge Relationship Specialty [place] [address] [place] [address] PCP - General Family Medicine 05/18/22 Jovany Gonzalez MD [facility] [address] [facility] [address] [place], [place] [address] Orthopedics 02/15/17 Staci Woodward, PALLET STONE POSITIONER [place] [address] [place], [place] [phone] Nurse Practitioner Nurse Practitioner Psych/Mental Health 05/10/17 Reanna Smith, RD [facility] [address] [place], [place] [phone] Certified Driver Examiner Dietitian, Registered 07/25/19 Roshni Nascimento, RN Personal Advocate & Liaison (PAL) Family Medicine 08/18/20 Kiet Swain MD [address] [place] [address] [phone] Referring Physician Psychiatry 09/19/20 Winsome Pike APRN GREEN END DEPARTMENT SUPERVISOR [address] [place] [address] Nurse Practitioner Psychiatry 09/19/20 Tori Hines, [facility] [address] [place] [address] Playground Director Playground Director - Clinical 09/19/20 [place] [address] [place] [address] Pharmacist Pharmacist 11/12/20 Marisel Armando MD [address] [place] [address] Gastroenterology 02/05/21 Wesley Barrett MD [address] [facility] [address] [place] [address] Assigned Neuroscience Provider 05/10/21 [place] [address] [place] [address] Assigned PCP 05/15/22 Katiana Read MD [address] [place] [address] Assigned Endocrinology Provider 06/19/22 [place] [address] [place] [address] Nurse Practitioner Nurse Practitioner 10/18/22 Elham Stack, [facility] [address] [place] [address] Pharmacist Pharmacist 10/19/22 Aubrey Jones MD [address] [place] [address] Cardiovascular Disease 03/28/23 Blanquita Morales Certified Driver Examiner Diabetes Education 04/25/23 Aubrey Jones MD [address] [place] [address] Assigned Heart and Vascular Provider 05/07/23 documented as of this encounter
--- OUTSIDE RECORDS SUMMARY | 2023-08-03 09:57 | XMS_ITS | Encounter Summary ---
Author Name Unknown Organization [facility] Address [address] [place] [address]. [place] [address] Care Team Providers Care Foot Orthopedist Name Role Phone Jovany Gonzalez MD Unavailable CrissyStaci jeong NP Unavailable [phone] Unavailable [phone] Roshni Nascimento RN Unavailable Unavailable Kiet Swain MD Unavailable [phone] Winsome Pike APRN TILE LAYER DRAINAGE Unavailable [phone] Tori Hines [facility] Unavailable Miranad Queen [facility] Unavailable Unavailable Marisel Armando MD Unavailable Wesley Barrett MD Unavailable [phone] Dyan Fuentes MD Primary Care Provider [phone] Dyan Fuentes MD Unavailable [phone] Katiana Read MD Unavailable [phone] Mary Del Cid SANDING LINE OPERATOR Unavailable [phone] Elham Stack [facility] Unavailable [phone] Aubrey Jones MD Unavailable [phone] Reason for Referral * Rehab Therapy Physical Therapy (Routine) - Closed Specialty Diagnoses / Procedures Referred By Contac t Referred To Contact Physical Therapy Diagnoses Chronic pain syndrome S/P lumbar laminectomy S/[place] [address] [place] [address] [facility] & Physical Therapy - [address] [place] [address] Referral ID Status Reason Start Date Expiration Date Visits Re quested Visits Authorized [id number] Closed 05/04/2023 07/10/2023 365 365 Scheduling Instructions Pain Management Provider Services: PT Evaluation and Treat: chronic neck and lower back pain Reason for Visit * Reason Comments Pain Encounter Details Date Type Department Care Team (Late st Contact Info) Description 04/18/2023 2:00 PM CDT Office Visit [facility] [address] [place] [address] [place] [address] [place] [id number] Chronic pain syndrome (Primary Dx); S/P lumbar laminectomy; S/P cervical spinal fusion; Muscle spasm Social History Tobacco Use Types Packs/Day Years Used Date Smoking Tobacco: Every Day Cigarettes 1 50 Smokeless Tobacco: Never Tobacco Cessation:Ready to Q uit: No; Counseling Given: Yes Comments:down to 4 cigs per day. Quitting [...] week 10/16/2021 How often do you attend formerly [facility] or restorationism services? 1 to 4 times per year 10/16/2021 Do you belong to any clubs o r organizations such as episcopal groups, unions, fraternal or athletic groups, or [...] Answer Date Recorded PHQ-2 Score 2 11/25/2022 [facility] - Occupational Stress Questionnaire Answer [...] to sleep or slept in a senior care (including now)? No 10/16/2021 Adolescent Education Answer [...] Sign Reading Time Taken Comments Blood Pressure 140/86 04/18/2023 1:49 PM CDT Pulse 82 04/18/2023 1:49 PM CDT Temperature - - Respiratory Rate - - Oxygen Saturation 96% 04/18/2023 1:4 9 PM CDT Inhaled Oxygen Concentration - - Weight 110.3 kg (243 lb 1.6 oz) 04/18/2023 1:49 PM CDT patient reported Height - - Body Mass Index 36.96 12/30/2022 2:39 PM CDT documented in this encounter Patient Instructions * Patient Instructions* Mary Del Cid NP - 04/18/2023 2:00 PM CDT Clinic Number: [phone] Call with any questions about your care and for scheduling assistance. Calls are returned Tuesday through Tuesday between 8 AM and 4:30 PM. We usually get back to you within 2 business days depending on the issue/request. If we are prescribing your medications: For opioid medication refills, call the clinic or send a Call Loophart message 7 days in advance. Please include: Name of requested medication Name of the pharmacy. For non-opioid medications, call your pharmacy directly to request a refill. Please allow 3-4 days to be processed. Per [place] State Law: All controlled substance prescriptions must be filled within 30 days of being written. For those controlled substances allowing refills, pickup must occur within 30 days of last fill. We believe regular attendance is wright to your success in our program! Any time you are unable to keep your appointment we ask that you call us at least 24 hours in advance to cancel.This will allow us to offer the appointment time to another patient. Multiple missed appointments may lead to dismissal from the clinic. documented in this encounter Progress Notes * Mary Del Cid NP - 04/18/2023 2:00 PM CDT Images from the original note were not included. [facility] Date of Visit: 04/18/2023 Last visit: 02/14/2023 Original Consult: 12/09/2020 (Greg) Kaila Edwin Rob Hernandez is a 62 year old female [...] multilevel facet arthropathy as well, s/p L5-S1 hemilaminectomy Right hip pain- hx of avascular necrosis, s/p hip replacement with Dr. Mayo on 08/06/2020 and righthip irrigation, debridement, and evacuation of hematoma with Dr. Mayo on 08/20/2020 at [facility]. Mental Health - the patient's mental health concerns, specifically ANTHONY, affect her experience of pain and contribute to her clinically significant distress. Since last seen, Kaila reports: - Starting to notice that she is wanting to move more, but lacks stamina. Has a new hobby as she isno longer able to knit due to hand pain. Started to play video games and is feeling that this is really helping her to feel better and happier. Currently playing [employer], really likes that this allows her to complete puzzles and exercise her brain. - Will be getting new glasses with prisms. Recently diagnosed with cataracts and hopes to have cataract surgery later this year. - Went through a smoking cessation program, however when she found out about her son, she and her both resumed smoking. Almost started drinking to cope, but was able to abstain. Feels proud of this. - Lower back and neck pain is feeling less limiting with the increased Buprenorphine dose to 4/1 mgtwice a day. Typically takes it three times per day along with Robaxin 1000 mg TID prn. Uses 1-2 vapes of medical cannabis per day with good control of symptoms. - She continues visits with therapist at [facility], has found this helpful and feels that this is the best she has ever felt. She and her no longer go to [facility] for family support, felt overly restorationism to them. Son is doing well in treatment, almost completed 90 days. - Has a 6th grandchild on the way and is looking forward to this. Pain [...] prn Clonazepam 0.5mg BID prn Review of [place] Prescription Monitoring Program (HYDROTECHNICAL SPECIALIST): No concern for abuse or misuse of controlled medications based on this report. Viewed on 04/18/2023 (continue to experience that her pharmacy does not update to HYDROTECHNICAL SPECIALIST, but calling pharmacy verifies fills and she brings meds to visits.) Controlled medications (buprenorphine) are being prescribed by [...] medications: medical cannabis- helps 2. PHYSICAL THERAPY: yes various times - Somewhat helpful; none in the past 5 years. 3. PAIN PSYCHOLOGY: yes with Dr. Benites several years ago -helpful, currently treating with [facility] 4. SURGERY: lumbar laminectomy L4-S1 with Dr. Barrett on 11/10/2021 C5-[address] Barrett on 05/18/[address] Mayo on 08/06/2020 and right hip irrigation, debridement, and evacuation of hematoma with Dr. Mayo on 08/20/2020 at [facility] cervical fusion 2002 L5-S1 hemilaminectomy 2004 5. INJECTIONS: several, most recent right hip injection fall 2020, prior to that years 6. COMPLEMENTARY THERAPY: Chiropractic: no Acupuncture: no TENS Unit: initally helped, then worsened her pain. Not using. Imagin07/03/2021 MRI of cervical spine C2-C3: There [...] or neural foraminal narrowing throughout thoracic spine. 07/03/2021 MRI of lumbar spine T12-L1: Loss of disc height, disc desiccation and mild circumferential disc bulging. No herniation.Mild facet arthropathy bilaterally. No spinal canal stenosis. No foraminal stenosis on either side. L1-L2: Loss of disc height, disc desiccation and mild circumferential disc bulging. No herniation. Moderate facet arthropathy bilaterally. Minimal spinal canal narrowing. Minimal bilateral neural foraminal narrowing. No change from the comparison study. L2-L3: Loss of disc height, disc desiccation and moderate circumferential disc bulging. No herniation. Moderate facet arthropathy bilaterally. Mild spinal canal narrowing. Mild left foraminal narrowing. No right foraminal stenosis. No change from the comparison study. L3-L4: Loss of disc height, disc desiccation and mild circumferential disc bulging. No herniation. Circumferential endplate spurring. Moderate facet arthropathy bilaterally. No spinal canal stenosis.Mild bilateral neural foraminal narrowing. No change from the comparison study. L4-L5: Loss of disc height, disc desiccation and moderate circumferential disc bulging. No herniation. Circumferential endplate spurring. Moderate facet arthropathy bilaterally. No spinal canal stenosis. Mild left foraminal narrowing. Mild-moderate right foraminal stenosis. No change from the comparison study. L5-S1: Loss of disc height, disc desiccation and moderate circumferential disc bulging. No herniation. Moderate to severe facet arthropathy bilaterally. Minimal spinal canal narrowing. Mild-moderate bilateral neural foraminal stenosis. IMPRESSION: 1. Diffuse degenerative change of the lumbar spine as detailed above without appreciable change from the comparison study. 2. Mild to moderate neural foraminal stenosis on the right at L4-L5 and bilaterally at L5-S1. 3. No other significant spinal canal or neural foraminal stenosis of the lumbar spine. Social History: Social History Tobacco Use Smoking status: Every Day Packs/day: 1.00 Years: 50.00 Pack years: 50.00 Types: Cigarettes Smokeless tobacco: Never Tobacco comments: down to 4 cigs per day. Quitting 10/04/21 Vaping Use Vaping Use: Never used Substance Use Topics Alcohol use: Not Currently Drug use: No Comment: marijuana in high school Social History Social History Narrative , 4 children, lives at home with , does not work outside the home. Children are 40, 39, 38, 37, still very involved in her children's lives. One son lives in [place], others are local. One son (disabled from long covid/ substance use disorder) and his live with her. 5 grandchildren, 18 (boy), 16 (girl) and 3 are 5 (twin girls + girl who is three days apart from the twins). For fun, enjoys video games, crossword puzzles, being on [employer]. Last updated 02/14/2023 Medications and Allergies reviewed. OBJECTIVE Vitals: 04/18/23 1349 BP: (!) 140/86 Pulse: 82 SpO2: 96% Weight: 110.3 kg (243 lb 1.6 oz) Constitutional: Well developed, well nourished, appears stated age. No acute distress. Gait: wide based, slow, steady HEENT: Head atraumatic, normocephalic. Eyes without conjunctival injection or jaundice. Skin: small patches of dry skin on the back of her hands. No other obvious rash, lesions, or petechiae of exposed skin. Extremities: Peripheral pulses intact. No clubbing, cyanosis, or edema appreciated. Psychiatric/mental status: Alert, Speech fluent, Appropriate affect. Mood normal. Able to follow commands without difficulty. Musculoskeletal exam: mildly reduced ROM, normal spinal curvature. ASSESSMENT AND PLAN: Chronic pain syndrome S/P lumbar laminectomy S/P cervical spinal fusion Muscle spasm Continue current medications, continue suboxone to 8 mg per day in divided doses. Follow up in 3 months. - buprenorphine HCl-naloxone HCl (SUBOXONE) 4-1MG per film recently filled by Dr. Baxter, will bepicking up today. - Continue robaxin for muscle spasms, does not need refills. - Pain PT orders placed. Mary Del Cid, TILE LAYER DRAINAGE-BC, PMGT-BC, AP-PMN [facility] documented in this encounter Plan of Treatment Upcoming Encounters Date Type Department Care Team (Late st Contact Info) Description 08/18/2023 3:00 PM ENTRY LEVEL ACCOUNTANT Office Visit [facility] [address] [place] [address] Katiana Read MD [address] [place] [address] Scheduled Referrals Name Type Priority Associated Diagnoses Orde r Schedule PAIN PT EVAL AND TREAT Referral Routine Chronic pain syndrome S/P lumbar laminectomy S/P cervical spinal fusion Ordered: 04/18/2023 documented as of this encounter Visit Diagnoses Diagnosis Chronic pain syndrome- Primary S/P lumbar laminectomy S/P cervical spinal fusion Arthrodesis status Muscle spasm Spasm of muscle documented in this encounter Additional Health Concerns Assessment Noted Time PHQ-9 Depression Total Score: 10 023 8:26 AM CDT documented as of this encounter Care Teams Foot Orthopedist Relationship Specialty [place] [address] [place] [address] PCP - General Family Medicine 05/18/22 Jovany Gonzalez MD [facility] [address] [facility] [address] [place], [place] [address] Orthopedics 02/15/17 Staci Woodward SANDING LINE OPERATOR [facility] [address] [place], [place] [address] Nurse Practitioner Nurse Practitioner Psych/Mental Health 05/10/17 Reanna Smith, RD [facility] [address] [place] [address] Slide Forming Machine Tender Dietitian, Registered 07/25/19 Roshni Nascimento RN Personal Advocate & Liaison (PAL) Family Medicine 08/18/20 Kiet Swain MD [address] [facility] [place] [address] Referring Physician Psychiatry 09/19/20 Winsome Pike APRN CNP [address] [place] [address] [id number] Nurse Practitioner Psychiatry 09/19/20 Tori Hines [facility] [address] [place], [place] [address] Head Of Transport Logistics Head Of Transport Logistics - Clinical 09/19/20 Miranda Queen [facility] [address] [place] [address] Pharmacist Pharmacist 11/12/20 Marisel Armando MD [address] [place], [place] [address] Gastroenterology 02/05/21 Wesley Barrett MD [address] [facility] [address] [place], [place] [address] Assigned Neuroscience Provider 05/10/21 [place] [address] [place] [address] Assigned PCP 05/15/22 Katiana Read MD [address] [place] [address] Assigned Endocrinology Provider 06/19/22 [place] [address] [place] [address] Nurse Practitioner Nurse Practitioner 10/18/22 Elham Stack, [facility] [address] [place] [address] Pharmacist Pharmacist 10/19/22 Aubrey Jones MD [address] [place] [address] Cardiovascular Disease 03/28/23 documented as of this encounter
--- OUTSIDE RECORDS SUMMARY | 2023-08-03 09:58 | XMS_ITS | Encounter Summary ---
Author Name Unknown Organization [place] Address [address] [place] [address]. [place] [address] Care Team Providers Care Glass Blowing Lathe Operator Name Role Phone Jovany Gonzalez MD Unavailable CrissyStaci jeong [facility] Unavailable Reanna Smith RD Unavailable Roshni Nascimento RN Unavailable Unavailable Kiet Swain MD Unavailable [phone] Winsome Pike APRN CPR INSTRUCTOR Unavailable [phone] Tori Hines [facility] Unavailable Miranda Queen [facility] Unavailable Unavailable Marisel Armando MD Unavailable Wesley Barrett MD Unavailable [phone] Dyan Fuentes MD Primary Care Provider [phone] Dyan Fuentes MD Unavailable [phone] Katiana Read MD Unavailable [phone] Mary Del Cid [facility] Unavailable [phone] Elham Stack [facility] Unavailable [phone] Michelle GuzmanM, Podiatry /Foot and Ankle Surgery Unavailable Aubrey Jones MD Unavailable [phone] DarwinshellchristiBlanquita Unavailable Unavailable Aubrey Jones MD Unavailable [phone] Reason for Referral * Patient Education (Priority: 1-2 Weeks) - Pending Review Specialty Diagnoses / Procedures Referred By Contlennox t Referred To Contact Diabetes Education Diagnoses Type 2 diabetes mellitus without complication, without long-term current use of insulin (H) Katiana Read MD [address] [facility] [address] [place] [address] Referral ID Status Reason Start Date Expiration Date V isits Requested Visits Authorized [id number] Pending Review 04/08/2023 04/07/2024 1 1 Question Answer Last HgbA1c: A1C 6.5 10/16/2022 Type of Training and number of hours: Previous Diagnosis: f/u DSME/T - 2 hours Diabetes Type: Type 2 Diabetes Co-Morbidities: none A1C Goal: <7.0 A1C is: No past HGBA1C Medical Nutrition Therapy (MNT) for Diabetes Do not initiate MNT at this time Diabetes Education Topics: Comprehensive Knowledge Assessment and Instruction Special Educational Needs Requiring Individual DSMT: No Type 1 or Type 2 group class available within 2 months Recommended Visit Mode: Per Patient Preference Comments If you have not heard from the scheduling office within 2 business days, please call [phone] for [facility], for [facility] or [phone] for the [facility]. Medicare covers: 10 hours of initial DSMT in 12 month period from the time of first visit, plus 2 hours of follow-up DSMT annually, and additional hours as requested for insulin training. MNT for diabetes Medical Nutrition Therapy with a Registered Dietitian can be provided in coordination with Diabetes Self-Management Training to assist in achieving optimal diabetes management. Medicare will cover: 3 hours initial MNT in 12 month period after first visit, plus 2 hours of follow-up MNT annually Please be aware that coverage of these services is subject to the terms and limitations of your health insurance plan. Call member services at your health plan to determine Diabetes Self-Management Training (Codes G0108 and G0109) and Medical Nutrition Therapy (Codes 67519 and 65413) benefits and ask which blood glucose monitor brands are covered by your plan. Please bring the following with you to your appointment: 1. List of current medications 2. List of Blood Glucose Monitor brands that are covered by your insurance plan 3. Blood Glucose Monitor and log book 4. Food records for the 3 days prior to your visit Reason for Visit * Reason Onset Date Comments Call Back 04/06/2023 Blood Sugar Encounter Details Date Type Department Care Team (Late st Contact Info) Description 04/06/[address] [facility] [address] [facility] [address] [place] [address] Katiana Read MD [address] [place] [address] Call Back (Blood Sugar) Social History Tobacco Use Types Packs/Day Years [...] often do you attend chur ch or pentecostal services? 1 to 4 times per year [...] Answer Date Recorded PHQ-2 Score 2 11/25/2022 [facility] - Occupational Stress Questionnaire Answer [...] place to sleep or slept in a halfway (including now)? No 10/16/2021 Adolescent Education Answer [...] was confirmed or suspected to have Coronavirus/COVID-19? Unable to assess 03/28/2023 3:14 PM CDT documented as of this encounter Miscellaneous Notes * Telephone Encounter - Torri Benites RN - 04/08/2023 8:22 AM CDT Manuscripts Curator attempted to contact pt to discuss below from provider and- Pt needs to be seen by endo sooner to discuss DM, as pcp has been managing. Can also place referralfor pt to be seen by CDE as well. If pt calls back please see if sooner appt with Lenka sharma, referral for CDE placed as well. Pt should schedule with CDE. * Telephone Encounter - Katiana Read MD - 04/07/2023 4:09 PM CDT Images from the original note were not included. Looks like diabetes not discussed in last clinic visit and she needs follow-up with endocrine. Because blood sugar is running high, I recommend to increase long-acting insulin by 4 units. She has follow-up appointment with Lenka Parks in July but needs sooner appointment. Please check if CD can see patient sooner. Please place referral if needed yes: Diabetes Medication(s) Insulin insulin aspart (NOVOLOG FLEXPEN) 100 UNIT/ML pen INJECT 1 UNIT FOR 50 POINTS ABOVE 150 WITH EACH MEAL (TOTAL DAILY DOSE 10-15 UNITS PER DAY) insulin glargine (BASAGLAR KWIKPEN) 100 UNIT/ML pen Inject 10 Units Subcutaneous every morning Lab Results Component Value Date A1C 6.5 10/16/2022 A1C 5.9 06/12/2022 A1C 7.2 10/16/2021 A1C 6.8 06/08/2021 A1C 6.7 05/11/2021 A1C 5.6 10/27/2020 A1C 7.2 07/18/2020 A1C 7.1 01/22/2020 A1C 8.6 08/23/2019 A1C 6.7 03/21/2019 * Telephone Encounter - Rachelle Benites CMA - 04/07/2023 9:09 AM CDT dm managed by PCP Message sent via [employer]. Zenobia Benites CMA [facility] [phone] * Telephone Encounter - Nhi Wong RN - 04/07/2023 8:08 AM CDT Basaglar is at 32 units, novolog is as prescribed. * Telephone Encounter - Katiana Read MD - 04/06/2023 5:34 PM CDT Images from the original note were not included. Can you please check what is her current regimen? How much Basaglar and how much NovoLog she is taking? Need blood sugar data as well. Based on her message it appears that she is taking 32 units of Basaglar and still blood sugars are high. If she is running short of medication please send new prescription for Basaglar and get blood sugardata. yes: Diabetes Medication(s) Insulin insulin aspart (NOVOLOG FLEXPEN) 100 UNIT/ML pen INJECT 1 UNIT FOR 50 POINTS ABOVE 150 WITH EACH MEAL (TOTAL DAILY DOSE 10-15 UNITS PER DAY) insulin glargine (BASAGLAR KWIKPEN) 100 UNIT/ML pen Inject 10 Units Subcutaneous every morning * Telephone Encounter - Nhi Wong RN - 04/06/2023 12:49 PM CDT I called the pt, she states that she had lost 45 pounds a few yrs ago so her basaglar was reduced to 10 units. The pt has gained the 45 pounds back in the last yr and her BG has been effected. The states that's she has increased her basalar, over the last 2 months, back up to 32 units. Please advise if I can send an updated RX. Please obtain the pt's dexcom report for the MD to review. * Telephone Encounter - Jessica Chew - 04/06/2023 12:30 PM CDT M [facility] Call Center Phone Message May a detailed message be left on voicemail: yes Reason for Call: Other: . Per Patient is wanting to get a call back. Patient states she is wanting to speak with the nurse rehans to her having crazy trouble with her blood sugars being high. Patient states it has been having trouble for the last 2 months going up and down on Basaglar. Patient states she is needing to talk to the nurse about what she is needing to do. Please advise. Action Taken: Message routed to: [facility] Endo Travel Screening: Not Applicable documented in this encounter Plan of Treatment Upcoming Encounters Date Type Department Care Team (Late st Contact Info) Description 08/18/2023 3:00 PM SENIOR PROJECT MANAGER ENGINEERING Office Visit [facility] [address] [place] [address] Katiana Read MD [address] [place] [address] Scheduled Referrals Name Type Priority Associated Diagnoses Orde r Schedule AMB Adult Sanitarian Referral Referral Priority: 1-2 Weeks Type 2 diabetes mellitus without complication, without long-term current use of insulin (H) Expected: 04/08/2023 (Approximate), Expires: 04/08/2024 documented as of this encounter Visit Diagnoses Diagnosis Postablative hypothyroidism- Primary Other postablative hypothyroidism Type 2 diabetes mellitus without complication, without long-term current use of insulin (H) documented in this encounter Additional Health Concerns Assessment Noted Time PHQ-9 Depression Total Score: 10 023 8:26 AM CDT documented as of this encounter Care Teams Glass Blowing Lathe Operator Relationship Specialty [place] [address] [place] [address] PCP - General Family Medicine 05/18/22 Jovany Gonzalez MD [facility] [address] [facility] [address] [place], [place] [address] Orthopedics 02/15/17 Staci Woodward [facility] PH[facility]ACIST [facility] [address] [place], [place] [address] Nurse Practitioner Nurse Practitioner Psych/Mental Health 05/10/17 Reanna Smith, RD [facility] [address] [place], [place] [address] Sanitarian Dietitian, Registered 07/25/19 Roshni Nascimento RN Personal Advocate & Liaison (PAL) Family Medicine 08/18/20 Kiet Swain MD [address] [facility] [place], [place] [id number] Referring Physician Psychiatry 09/19/20 Winsome Pike APRN CPR INSTRUCTOR [address] [address] Nurse Practitioner Psychiatry 09/19/20 Tori Hines, [facility] [address] [place], [place] [address] Event Manager Event Manager - Clinical 09/19/20 Miranda Queen [facility] [address] [place] [address] Pharmacist Pharmacist 11/12/20 Marisel Armando MD 909 [place] [address] Gastroenterology 02/05/21 Wesley Barrett MD [address] [facility] [address] [place] [address] Assigned Neuroscience Provider 05/10/21 [place] [address] [place] [address] Assigned PCP 05/15/22 Katiana Read MD [address] [address] Assigned Endocrinology Provider 06/19/22 Mary Del Cid, RAFAEL [address] [place] [address] Nurse Practitioner Nurse Practitioner 10/18/22 Elham Stack, [facility] [address] [place] [address] Pharmacist Pharmacist 10/19/22 Michelle Guzman DPM, Podiatry/Foot and Ankle Surgery [address] [place] [address] Assigned Musculoskeletal Provider 10/16/22 04/08/23 Aubrey Jones MD [address] [place] [address] Cardiovascular Disease 03/28/23 Blanquita Morales Sanitarian Diabetes Education 04/25/23 Aubrey Jones MD [address] [place] [address] Assigned Heart and Vascular Provider 05/07/23 documented as of this encounter
--- OUTSIDE RECORDS SUMMARY | 2023-08-03 09:58 | XMS_ITS | Encounter Summary ---
Author Name Unknown Organization [facility] Address [address] [place] [address]. [place] [address] Care Team Providers Care Director Of Casework Department Name Role Phone Jovany Gonzalez MD Unavailable [phone] CrissyStaci jeong NP Unavailable [phone] Unavailable [phone] Roshni Nascimento RN Unavailable Unavailable Kiet Swain MD Unavailable [phone] Winsome Pike APRN CO FOUNDER AND DIRECTOR Unavailable [phone] Tori Hines [facility] Unavailable Miranda Queen [facility] Unavailable Unavailable Marisel Armando MD Unavailable Wesley Barrett MD Unavailable [phone] Dyan Fuentes MD Primary Care Provider [phone] Dyan Fuentes MD Unavailable [phone] Katiana Read MD Unavailable [phone] Mary Del Cid SURGICAL SCHEDULER Unavailable [phone] Elham Stack [facility] Unavailable [phone] Michelle Guzman DPM, Podiatry /Foot and Ankle Surgery Unavailable Dyan Fuentes MD Unavailable Reason for Visit * Reason Onset Date Comments Prior Auth - Medication 03/17/2023 buprenor phine HCl-naloxone HCl (SUBOXONE) 4-1 MG per film - PA not needed Encounter Details Date Type Department Care Team (Late st Contact Info) Description 03/17/[address] [facility] [place] [address] [facility] [address] [place], [place] [address] [place] [address] [place] [id number] Prior Auth - Medication (buprenorphine HCl-naloxone HCl (SUBOXONE) 4-1 MG per film - PA not needed) Social History Tobacco Use Types Packs/Day Years [...] often do you attend chur ch or worship services? 1 to 4 times per year [...] Answer Date Recorded PHQ-2 Score 2 11/25/2022 [facility] - Occupational Stress Questionnaire Answer Date [...] place to sleep or slept in a care home (including now)? No 10/16/2021 Education Answer Date Recorded What is the [...] encounter Miscellaneous Notes * Telephone Encounter - Vinicio Anguiano - 03/18/2023 4:35 PM CDT Prior Authorization Not Needed per Insurance Medication: BUPRENORPHINE HCL-NALOXONE HCL 4-1 MG SL FILM Insurance Company: [employer] - Expected CoPay: Pharmacy Filling the Rx: [facility] - [facility], [address] Pharmacy Notified: Yes Patient Notified: Yes Pharmacy has paid claim. * Telephone Encounter - Nerissa Byrnes - 03/17/2023 2:52 PM CDT Prior Authorization Retail Medication Request buprenorphine HCl-naloxone HCl (SUBOXONE) 4-1 MG per film ICD code (if different than what is on RX): Chronic pain syndrome [G89.4] Previously Tried and Failed: Rationale: G89.4 Insurance Name: PREFERREDONE - [employer] PREFERREDONE Subscriber: Roosevelt Hernandez Relationship:Spouse Member:Kaila Pineda Rob Hernandez LOB:None Plan year: 07/11/2022 - [place] Effective dates: 07/11/2012 - [place] Group number: [id number] Insurance ID: Pharmacy Information (if different than what is on RX) Name: [facility] Fax: documented in this encounter Plan of Treatment Upcoming Encounters Date Type Department Care Team (Late st Contact Info) Description 08/18/2023 3:00 PM CHANNEL BUSINESS MANAGER Office Visit [facility] [address] [place] [address] Katiana Read MD [address] [place] [address] documented as of this encounter Visit Diagnoses Not on filedocumented in this encounter Additional Health Concerns Assessment Noted Time PHQ-9 Depression Total Score: 10 023 8:26 AM CDT documented as of this encounter Care Teams Director Of Casework Department Relationship Specialty [place] [address] [place], [place] [address] PCP - General Family Medicine 05/18/22 Jovany Gonzalez MD [facility] [address] [facility] 605 [place] [address] Orthopedics 02/15/17 Staci Woodward SURGICAL SCHEDULER [facility] [address] [place] [address] Nurse Practitioner Nurse Practitioner Psych/Mental Health 05/10/[address] [facility] [address] [place] [address] Correctional Therapy Director Dietitian, Registered 07/25/19 Roshni Nascimento, RN Personal Advocate & Liaison (PAL) Family Medicine 08/18/20 Kiet Swain MD [address]50 [facility] NG15 [place] [address] Referring Physician Psychiatry 09/19/20 Winsome Pike APRN CO FOUNDER AND DIRECTOR [address] [place] [id number] Nurse Practitioner Psychiatry 09/19/20 Tori Hines, [facility] [address] [facility] [place] [address] Sanipractic Physician Sanipractic Physician - Clinical 09/19/20 Miranda Queen [facility] [address] [place] [address] Pharmacist Pharmacist 11/12/20 Marisel Armando MD [address] [place], [place] [address] Gastroenterology 02/05/21 Wesley Barrett MD [address] [facility] 96 [place], [place] [address] Assigned Neuroscience Provider 05/10/21 [place] [address] [place] [address] Assigned PCP 05/15/22 Katiana Read MD [address] [facility] [address] [place], [place] [address] Assigned Endocrinology Provider 06/19/22 [place] [address] [address] [place], [place] [address] Nurse Practitioner Nurse Practitioner 10/18/22 Elham Stack [facility] [address] [place] [address] Pharmacist Pharmacist 10/19/22 Michelle Guzman DPM, Podiatry/Foot and Ankle Surgery [address] [facility] [address] [place], [place] [address] Assigned Musculoskeletal Provider 10/16/22 04/08/23 [place] [address] [place] [address] Assigned Pain Medication Provider 12/04/22 04/01/23 documented as of this encounter
--- OUTSIDE RECORDS SUMMARY | 2023-08-03 09:58 | XMS_ITS | Encounter Summary ---
Author Name Unknown Organization [place] Address [address] [place] [address]. [place] [address] Care Team Providers Care Log Sorting Supervisor Name Role Phone Jovany Gonzalez MD Unavailable CrissyStaci jeong NP Unavailable [phone] Unavailable [phone] Roshni Nascimento RN Unavailable Unavailable Kiet Swain MD Unavailable [phone] Winsome Pike APRN MECHANICAL ENGINEERING TECHNICIAN Unavailable [phone] [facility]i Hines [facility] Unavailable Miranda Queen [facility] Unavailable Unavailable Marisel Armando MD Unavailable Wesley Barrett MD Unavailable [phone] Dyan Fuentes MD Primary Care Provider [phone] Dyan Fuentes MD Unavailable [phone] Katiana Read MD Unavailable [phone] Mary Del Cid LAND LAW EXAMINER Unavailable [phone] Elham Stack [facility] Unavailable [phone] Michelle Guzman DPM, Podiatry /Foot and Ankle Surgery Unavailable Dyan Fuentes MD Unavailable Aubrey Jones MD Unavailable [phone] Blanquita Morales Unavailable Unavailable Aubrey Jones MD Unavailable [phone] Reason for Visit * Reason Onset Date Comments Outreach 03/18/2023 PAL - cardiology follow up Encounter Details Date Type Department Care Team (Late st Contact Info) Description 03/18/2023 MyC Medical Advice [facility] [address] [place] [address] Roshni Nascimento, RN Outreach (PAL - cardiology follow up ) Social History Tobacco Use Types Packs/Day [...] week 10/16/2021 How often do you attend [facility] or oriental orthodox services? 1 to 4 times per year 10/16/2021 Do you belong to any clubs o r organizations such as rastafari groups, unions, fraternal or athletic groups, or [...] Answer Date Recorded PHQ-2 Score 2 11/25/2022 [facility] of Occupat ional [facility] - Occupational Stress Questionnaire Answer Date [...] place to sleep or slept in a jail (including now)? No 10/16/2021 Education Answer Date [...] Telephone Encounter - Roshni Nascimento RN - 03/28/2023 2:27 PM CDT Spoke with pt - she had been on vacation and forgot about scheduling this. She will call now call to get this scheduled. PAL will monitor for appointment. Roshni Nascimento RN * Telephone Encounter - Roshni Nascimento RN - 03/28/2023 12:26 PM CDT LM for call back see below Letter sent as well Roshni Nascimento RN * Telephone Encounter - Roshni Nascimento RN - 03/18/2023 2:14 PM CDT My chart sent and LM pt needs cardiology follow up as below. This was recommended in December Abnormal electrocardiogram - Adult Cardiology Eval Barrel Dedenting Machine Operator Referral; Future Roshni Nascimento RN documented in this encounter Plan of Treatment Upcoming Encounters Date Type Department Care Team (Late st Contact Info) Description 08/18/2023 3:00 PM HEAD BUYER TOBACCO Office Visit [facility] [address] [facility] [address] [place] [address] Katiana Read MD [address] [place] [address] documented as of this encounter Visit Diagnoses Not on filedocumented in this encounter Additional Health Concerns Assessment Noted Time PHQ-9 Depression Total Score: 10 023 8:26 AM CDT documented as of this encounter Care Teams Log Sorting Supervisor Relationship Specialty [place] [address] [place] [address] PCP - General Family Medicine 05/18/22 Jovany Gonzalez MD [facility] [address] [facility] [address] [place], [place] [address] Orthopedics 02/15/17 Staci Woodward, LAND LAW EXAMINER [place] [address] [place], [place] [address] Nurse Practitioner Nurse Practitioner Psych/Mental Health 05/10/17 Reanna Smith, RD [place] [address] [place] [address] Print Washer Dietitian, Registered 07/25/19 Roshni Nascimento, RN Personal Advocate & Liaison (PAL) Family Medicine 08/18/20 Kiet Swain MD [address] [place] [address] Referring Physician Psychiatry 09/19/20 Winsome Pike APRN MECHANICAL ENGINEERING TECHNICIAN [address] [place] [address] Nurse Practitioner Psychiatry 09/19/20 Tori Hines, [facility] [address] [place], [place] [address] Offbearer Offbearer - Clinical 09/19/20 Miranda Queen [facility] [address] [place] [address] Pharmacist Pharmacist 11/12/20 Marisel Armando MD [address] [place], [place] [address] Gastroenterology 02/05/21 Wesley Barrett MD 420 [facility] 96 [place] [address] Assigned Neuroscience Provider 05/10/21 [place] [address] [place] [address] Assigned PCP 05/15/22 Katiana Read MD [address] [place] [address] [address] [place], [place] [id number] Assigned Endocrinology Provider 06/19/22 [place] [address] [place] [address] Nurse Practitioner Nurse Practitioner 10/18/22 Elham Stack, [facility] [address] [place], [place] [address] Pharmacist Pharmacist 10/19/22 Michelle Guzman DPM, Podiatry/Foot and Ankle Surgery [address] [facility] [address] [place], [place] [address] Assigned Musculoskeletal Provider 10/16/22 04/08/23 [place] [address] [place] [address] Assigned Pain Medication Provider 12/04/22 04/01/23 Aubrey Jones MD [address] [place] [address] Cardiovascular Disease 03/28/23 Blanquita Morales Print Washer Diabetes Education 04/25/23 Aubrey Jones MD [address] [place] [address] Assigned Heart and Vascular Provider 05/07/23 documented as of this encounter
--- OUTSIDE RECORDS SUMMARY | 2023-08-03 09:58 | XMS_ITS | Encounter Summary ---
Author Name Unknown Organization [facility] Address [address] [place] [address]. [place] [address] Care Team Providers Care Manager Of Patient Name Role Phone Jovany Gonzalez MD Unavailable CrissyStaci jeong NP Unavailable [phone] Unavailable [phone] Roshni Nascimento RN Unavailable Unavailable Kiet Swain MD Unavailable [phone] Winsome Pike APRN BUCKSHOT SWAGE OPERATOR Unavailable [phone] Tori Hines [facility] Unavailable Miranda Queen [facility] Unavailable Unavailable Marisel Armando MD Unavailable Wesley Barrett MD Unavailable [phone] Dyan Fuentes MD Primary Care Provider [phone] Dyan Fuentes MD Unavailable [phone] Katiana Read MD Unavailable [phone] Mary Del Cid TANGLED YARN WORKER Unavailable [phone] Elham Stack [facility] Unavailable [phone] Michelle Guzman DPM, Podiatry /Foot and Ankle Surgery Unavailable Dyan Fuentes MD Unavailable Reason for Visit * Reason Onset Date Comments Prior Auth - Medication 02/22/2023 buprenor phine HCl-naloxone HCl (SUBOXONE) 2- 0.5 MG per film - PA DENIED Encounter Details Date Type Department Care Team (Late st Contact Info) Description 02/22/2023 Refill [facility] [place] [id number] [place] [address] [address] [place], [place] [phone] [place] [address] [employer] [place] [id number] Prior Auth - Medication (buprenorphine HCl-naloxone HCl (SUBOXONE) 2-0.5 MG per film - PA DENIED) Social History Tobacco Use Types Packs/Day Years [...] often do you attend chur ch or episcopal services? 1 to 4 times per year [...] Answer Date Recorded PHQ-2 Score 2 11/25/2022 [facility] - Occupational Stress [...] place to sleep or slept in a mcc (including now)? No 10/16/2021 Education Answer Date [...] In the last 10 days, have lois u been in contact with someone who was confirmed or suspected to have Coronavirus/COVID-19? No / Unsure 02/14/2023 1:53 PM CDT documented as of this encounter Miscellaneous Notes * Telephone Encounter - Janine Argueta RN - 03/15/2023 12:55 PM CDT Spoke with pharmacy, rx went through w/o issue. Pt will fill and start 4mg at 0.5 QID Janine Raymundo RN Sail [facility] * Telephone Encounter - Nena Mora MD - 03/15/2023 12:47 PM CDT Signed Prescriptions: Disp Refills buprenorphine HCl-naloxone HCl (SUBOXONE) *60 Film0 Sig: Place 0.5 Film under the tongue 4 times daily Authorizing Provider: NENA MORA Covering for provider who is out of the office. Refill appears appropriate and was sent to requested pharmacy. Nena Mora MD [facility] * Telephone Encounter - Janine Argueta RN - 03/15/2023 12:40 PM CDT Routing to provider pool to review medication prepped per below for Mary Del Cid pt buprenorphine HCl-naloxone HCl (SUBOXONE) 4-1 MG per film #60, Refill:0 Sig:Place 0.5 Film under the tongue 4 times daily May refill every 30 days. Last picked up 02/14/23 with start on 02/14/23 Due: Fill and start 03/15/23 Per last OV note, see note from MM below [facility] [place] - [address] [facility] [address] Janine Raymundo RN Sail Maker [facility] * Telephone Encounter - Herlinda Benites - 03/15/2023 9:49 AM CDT [facility] Call Center Phone Message May a detailed message be left on voicemail: yes Reason for Call: Other: Pt is calling and would like to speak to someone on her care team about hermedication . Please call Pt back to discuss. Action Taken: Message routed to: Other: [facility] Travel Screening: Not Applicable * Telephone Encounter - Nerissa Evans - 03/11/2023 1:15 PM CDT Pt returned phone call. No one was available at the time she called. Pt wants to discuss getting prior authorization. Please call her back. Thanks. * Telephone Encounter - Blanquita Perera RN - 02/28/2023 11:25 AM CDT Called pt. LM to call back to discuss Blanquita LEAHY, RN [facility]ail [facility] * Telephone Encounter - Mary Del Cid NP - 02/28/2023 9:47 AM CDT I am not sure if the claim rejection was due to quantity limit or the medication itself as she has been on suboxone for many years, the only change was to increase the dose. Could you please ask Kaila? If she would like, we can switch to a 4 mg strip and she can take 1/2 strip QID? Mary Del Cid CNP * Telephone Encounter - Rogersam Jessica Ena - 02/25/2023 12:40 PM CDT Images from the original note were not included. PRIOR AUTHORIZATION DENIED Medication: SUBOXONE 2-0.5 MG SL FILM Insurance Company: [employer] - Denial Date: 02/25/2023 Denial Rational: MUST TRY/FAIL TWO PREFERRED ALTERNATIVES - BUPRENORPHINE- NALOXONE SL, ZUBSOLV Appeal Information: IF PROVIDER WOULD LIKE TO APPEAL THIS DECISION PLEASE PROVIDE PA TEAM WITH LETTER OF MEDICAL NECESSITY Patient Notified: No * Telephone Encounter - Rogersam Jessica A - 02/25/2023 9:29 AM CDT Images from the original note were not included. Central Prior Authorization Team PA Initiation Medication: SUBOXONE 2-0.5 MG SL [employer] Insurance Company: [employer] - Pharmacy Filling the Rx: [facility] - [address] Filling Pharmacy Filling Pharmacy Fax: Start Date: 02/25/2023 * Telephone Encounter - Cyndee Leija CMA - 02/25/2023 9:04 AM CDT [facility] [id number] * Telephone Encounter - Raquel Trent CMA - 02/22/2023 4:15 PM CDT Prior Authorization Retail Medication Request Medication/Dose: buprenorphine HCl-naloxone HCl (SUBOXONE) 2-0.5 MG per film ICD code (if different than what is on RX): Chronic pain syndrome [G89.4] Previously Tried and Failed: Rationale: PREFERREDONE - [employer] PREFERREDONE Subscriber: Roosevelt Hernandez Relationship:Spouse Member:Kaila Hernandez LOB:None Plan year: 07/11/2022 - [place] Effective dates: 07/11/2012 - [place] Group number: [id number] Pharmacy Information (if different than what is on RX) Name: [employer] [facility] - [facility] [address] [facility] documented in this encounter Plan of Treatment Upcoming Encounters Date Type Department Care Team (Late st Contact Info) Description 08/18/2023 3:00 PM TOBACCO PRIMER MACHINE OPERATOR Office Visit [facility] [address] [facility] [address] [place] [phone] Katiana Read MD [address] [facility] [address] [place], [place] [address] documented as of this encounter Visit Diagnoses Diagnosis Chronic pain syndrome documented in this encounter Additional Health Concerns Assessment Noted Time PHQ-9 Depression Total Score: 10 023 8:26 AM CDT documented as of this encounter Care Teams Manager Of Patient Relationship Specialty [place] [address] [place] [address] PCP - General Family Medicine 05/18/22 Jovany Gonzalez MD [facility] [address] [facility] [address] [place] [address] Orthopedics 02/15/17 Staci Woodward NP [facility] [address] [place], [place] [address] Nurse Practitioner Nurse Practitioner Psych/Mental Health 05/10/17 Reanna Smith, [facility] [address] [place] [address] Endoscopy Tech Dietitian, Registered 07/25/19 Roshni Nascimento, RN Personal Advocate & Liaison (PAL) Family Medicine 08/18/20 Kiet Swain MD [address] [place], [place] [address] [place], [place] [address] Referring Physician Psychiatry 09/19/20 Winsome Pike APRN BUCKSHOT SWAGE OPERATOR [address] [address] Nurse Practitioner Psychiatry 09/19/20 Tori Hines, [facility] [address] [place], [place] [address] Switchboard Wire Worker Helper Switchboard Wire Worker Helper - Clinical 09/19/20 Miranda Queen [facility] [address] [place] [address] Pharmacist Pharmacist 11/12/20 Marisel Armando MD [address] [place], [place] [address] Gastroenterology 02/05/21 Wesley Barrett MD [address] [facility] [address] [place] [address] Assigned Neuroscience Provider 05/10/21 [place] [address] [place] [address] Assigned PCP 05/15/22 Katiana Read MD [address] [facility] 200 [place] [address] Assigned Endocrinology Provider 06/19/22 [place] [address] [facility] [place] [address] Nurse Practitioner Nurse Practitioner 10/18/22 Elham Stack, [facility] [address] [place] [address] Pharmacist Pharmacist 10/19/22 Michelle Guzman DPM, Podiatry/Foot and Ankle Surgery [address] [employer] [facility] [address] [place] [address] Assigned Musculoskeletal Provider 10/16/22 04/08/23 [place] [address] [place] [address] Assigned Pain Medication Provider 12/04/22 04/01/23 documented as of this encounter
--- OUTSIDE RECORDS SUMMARY | 2023-08-03 09:58 | XMS_ITS | Encounter Summary ---
Author Name Unknown Organization [facility] Address [address] [place] [address]. [place] [address] Care Team Providers Care Childbirth Educator Name Role Phone Jovnay Gonzalez MD Unavailable CrissyStaci jeong NP Unavailable [phone] Unavailable [phone] Roshni Nascimento RN Unavailable Unavailable Kiet Swain MD Unavailable [phone] Winsome Pike APRN TURPENTINER Unavailable [phone] Tori Hines [facility] Unavailable Miranda Queen [facility] Unavailable Unavailable Marisel Armando MD Unavailable Wesley Barrett MD Unavailable [phone] Dyan Fuentes MD Primary Care Provider [phone] Dyan Fuentes MD Unavailable [phone] Katiana Read MD Unavailable [phone] Mary Del Cid DIRECTOR FEDERAL Unavailable [phone] Elham Stack [facility] Unavailable [phone] Michelle Guzman DPM, Podiatry /Foot and Ankle Surgery Unavailable Dyan Fuentes MD Unavailable Aubrey Jones MD Unavailable [phone] Blanquita Morales Unavailable Unavailable Aubrey Jones MD Unavailable [phone] Reason for Visit * Reason Onset Date Comments Orders 03/28/2023 Encounter Details Date Type Department Care Team (Late st Contact Info) Description 03/28/2023 Telephone [facility] [address] [place] [address] Katiana Read MD [address] [place] [address] Orders Social History Tobacco Use Types Packs/Day Years [...] often do you attend chur ch or druze services? 1 to 4 times per year 10/16/2021 Do you belong to any clubs o r organizations such as mandaen groups, unions, fraternal or athletic groups, or [...] Answer Date Recorded PHQ-2 Score 2 11/25/2022 [facility] - Occupational Stress Questionnaire Answer Date [...] place to sleep or slept in a residential (including now)? No 10/16/2021 Education Answer Date [...] Telephone Encounter - Katiana Read MD - 03/30/2023 12:53 PM CDT In last endocrinology visit with me, diabetes was not discussed. Recommend follow-up with Lenka Charly if she has sooner appointment. Lab Results Component Value Date A1C 6.5 10/16/2022 A1C 5.9 06/12/2022 A1C 7.2 10/16/2021 A1C 6.8 06/08/2021 A1C 6.7 05/11/2021 A1C 5.6 10/27/2020 A1C 7.2 07/18/2020 A1C 7.1 01/22/2020 A1C 8.6 08/23/2019 A1C 6.7 03/21/2019 * Telephone Encounter - Torri Benites RN - 03/29/2023 12:20 PM CDT has not been following patients DM. Provider has only been addressing Hypothyroidism. Please see note from PCP and advise. * Telephone Encounter - Dyan Fuentes MD - 03/29/2023 12:05 PM CDT I typically order labs because she cannot get in with endocrinology for months and doesn't scheduleenough in advance. Will order A1c, but she needs regular follow ups with endocrinology. Can we move up her Aug 2023 appt? * Telephone Encounter - Roshni Nascimento RN - 03/29/2023 8:49 AM CDT Please see note and if appropriate place labs Roshni Nascimento RN * Telephone Encounter - Torri Benites RN - 03/29/2023 8:38 AM CDT TSH placed. Routing to PCP team to place lab orders for DM. Please contact pt once labs are placed. * Telephone Encounter - Katiana Read MD - 03/28/2023 4:57 PM CDT Lab Results Component Value Date A1C 6.5 10/16/2022 A1C 5.9 06/12/2022 A1C 7.2 10/16/2021 A1C 6.8 06/08/2021 A1C 6.7 05/11/2021 A1C 5.6 10/27/2020 A1C 7.2 07/18/2020 A1C 7.1 01/22/2020 A1C 8.6 08/23/2019 A1C 6.7 03/21/2019 DM m/m by PCP * Telephone Encounter - Staci Moscoso RN - 03/28/2023 3:26 PM CDT Per 12/03/22 MyChart pt to have labs done in 3 months. Thyroid labs ordered. Pt notified and will schedule labs now. Please advise if okay to order A1C and any other labs. Diabetes managed by PCP, but Dexcom ordered by Dr. Read. * Telephone Encounter - Jessica Chew - 03/28/2023 3:14 PM CDT [facility] Phone Message May a detailed message be left on voicemail: yes Reason for Call: Order(s): Other: Reason for requested: Per Patient is wanting lab orders to be placed to have done prior to appt with Dr. Read. Patient is wanting the regular lab orders she gets for diabetes and hyperthyroid and cholesterol to be placed patient stated. Patient is wanting to get a call back when this has dre done to schedule. Please advise Date needed: mayuri Provider name: Roro Action Taken: Message routed to: [facility] Endo Travel Screening: Not Applicable documented in this encounter Plan of Treatment Upcoming Encounters Date Type Department Care Team (Late st Contact Info) Description 08/18/2023 3:00 PM MULTI MEDIA SPECIALIST Office Visit [facility] [address] [place] [address] Katiana Read MD [address] [place] [address] documented as of this encounter Results * (ABNORMAL) Hemoglobin A1c (06/23/2023 3:28 PM MULTI MEDIA SPECIALIST) Hemoglobin A1C 8.9(H) 0.0 - 5.6 % 06/23/2023 3:49 PM MULTI MEDIA SPECIALIST LABORATORY Blood BLOOD SPECIMEN / Unknown Venipuncture / Unknown 06/23/2023 3:28 PM MULTI MEDIA SPECIALIST 06/23/2023 3:34 PM MULTI MEDIA SPECIALIST Narrative LABORATORY - 06/23/2023 3:49 PM MULTI MEDIA SPECIALIST Results confirmed by repeat test. Dyan Fuentes MD LAB - BLOOD ORDER [facility] LABORATORY [facility] [address] [facility] Lab (no room number, 1st floor of clinic) [place] [address], [facility] [phone] * (ABNORMAL) Drug Abuse Screen Panel 13, Urine (Pain Care Map) - lab collect (06/23/2023 3:28 PM MULTI MEDIA SPECIALIST) [facility] Cannabinoids (10-png-9-carboxy -9-THC) Detected(A ) Not Detected, Indeterminate 06/24/2023 2:08 PM MULTI MEDIA SPECIALIST OX LABORATORY Comment: Cutoff for a positive cannabinoid is greater than 50 ng/ml. This is an unconfirmed screening result to be used for medical purposes only. Phencyclidine Not Detected Not Detected, Indeterminate 06/24/2023 2:08 PM MULTI MEDIA SPECIALIST OX LABORATORY Comment:Cutoff for a negativ e PCP is 25 ng/mL or less. Cocaine (Benzoylecgonine) Not Detected Not Detected, Indeterminate 06/24/2023 2:08 PM MULTI MEDIA SPECIALIST OX LABORATORY Comment:Cutoff for a negativ e cocaine is 150 ng/ml or less. Methamphetamine (d-Methamphetamin e) Not Detected Not Detected, Indeterminate 06/24/2023 2:08 PM MULTI MEDIA SPECIALIST OX LABORATORY Comment:Cutoff for a negativ e methamphetamine is 500 ng/ml or less. Opiates (Morphine) Not Detected Not Detected, Indeterminate 06/24/2023 2:08 PM MULTI MEDIA SPECIALIST OX LABORATORY Comment:Cutoff for a negativ e opiate is 100 ng/ml or less. Amphetamine (d-Amphetamine) Not Detected Not Detected, Indeterminate 06/24/2023 2:08 PM MULTI MEDIA SPECIALIST OX LABORATORY Comment:Cutoff for a negativ e amphetamine is 500 ng/mL or less. Benzodiazepines (Nordiazepam) Not Detected Not Detected, Indeterminate 06/24/2023 2:08 PM MULTI MEDIA SPECIALIST OX LABORATORY Comment:Cutoff for a negativ e benzodiazepine is 150 ng/ml or less. Tricyclic Antidepressants (Desipramine) Not Detected Not Detected, Indeterminate 06/24/2023 2:08 PM MULTI MEDIA SPECIALIST OX LABORATORY Comment:Cutoff for a negativ e tricyclic antidepressant is 300 ng/ml or less. Methadone Not Detected Not Detected, Indeterminate 06/24/2023 2:08 PM MULTI MEDIA SPECIALIST OX LABORATORY Comment:Cutoff for a negativ e methadone is 200 ng/ml or less. Barbiturates (Butalbital) Not Detected Not Detected, Indeterminate 06/24/2023 2:08 PM MULTI MEDIA SPECIALIST OX LABORATORY Comment:Cutoff for a negativ e barbituate is 200 ng/ml or less. Oxycodone Not Detected Not Detected, Indeterminate 06/24/2023 2:08 PM MULTI MEDIA SPECIALIST OX LABORATORY Comment:Cutoff for a negativ e oxycodone is 100 ng/mL or less. Buprenorphine Detected(A ) Not Detected, Indeterminate 06/24/2023 2:08 PM MULTI MEDIA SPECIALIST OX LABORATORY Comment: Cutoff for a positive buprenorphine is greater than 10 ng/ml. This is an unconfirmed screening result to be used for medical purposes only. Urine MID-STREAM URINE SPECIMEN / Unknown Non-blood Collection / Unknown 06/23/2023 3:28 PM MULTI MEDIA SPECIALIST 06/23/2023 3:34 PM MULTI MEDIA SPECIALIST Dyan Fuentes MD LAB - URINE ORDER [facility]NA OX LABORATORY [facility] [address] Lab (no room number, 1st floor of clinic) [place] [address], [facility] [phone] documented in this encounter Visit Diagnoses Diagnosis Postablative hypothyroidism- Primary Other postablative hypothyroidism Other chronic pain Type 2 diabetes mellitus without complication, without long-term current use of insulin (H) documented in this encounter Additional Health Concerns Assessment Noted Time PHQ-9 Depression Total Score: 10 023 8:26 AM CDT documented as of this encounter Care Teams Childbirth Educator Relationship Specialty [place] [address] [place] [address] PCP - General Family Medicine 05/18/22 Jovany Gonzalez MD [facility] [address] [facility] [address] [place], [place] [address] Orthopedics 02/15/17 Staci Woodward NP [address] [address] Nurse Practitioner Nurse Practitioner Psych/Mental Health 05/10/[address] [place] [address] Eyelet Punch Operator Dietitian, Registered 07/25/19 Roshni Nascimento, RN Personal Advocate & Liaison (PAL) Family Medicine 08/18/20 Kiet Swain MD [facility] [address] [place], [place] [address] Referring Physician Psychiatry 09/19/20 Winsome Pike, VIDHI TURPENTINER [address] [place] [address] Nurse Practitioner Psychiatry 09/19/20 Tori Hines, [facility] [place], [place] [id number] Lay Ups Assembler Lay Ups Assembler - Clinical 09/19/20 [facility] [address] [place] [address] Pharmacist Pharmacist 11/12/20 Marisel Armando MD [address] [place], [place] [address] Gastroenterology 02/05/21 Wesley Barrett MD [address] [facility] 96 [place] [address] Assigned Neuroscience Provider 05/10/21 [place] [address] [place] [address] Assigned PCP 05/15/22 Katiana Read MD [address] [place], [place] [address] Assigned Endocrinology Provider 06/19/22 [place] [address] [place] [address] Nurse Practitioner Nurse Practitioner 10/18/22 Elham Stack, [facility] [address] [place] [address] Pharmacist Pharmacist 10/19/22 Michelle Guzman DPM, Podiatry/Foot and Ankle Surgery [address] [place] [address] Assigned Musculoskeletal Provider 10/16/22 04/08/23 [place] [address] [place] [address] Assigned Pain Medication Provider 12/04/22 04/01/23 Aubrey Jones MD [address] [place] [address] Cardiovascular Disease 03/28/23 Blanquita Morales Eyelet Punch Operator Diabetes Education 04/25/23 Aubrey Jones MD [address] [place] [address] Assigned Heart and Vascular Provider 05/07/23 documented as of this encounter
--- OUTSIDE RECORDS SUMMARY | 2023-08-03 09:58 | XMS_ITS | Encounter Summary ---
Author Name Unknown Organization [place] Address [address] [place] [address]. [place] [address] Care Team Providers Care Hvac Service Manager Name Role Phone Jovany Gonzalez MD Unavailable CrissyStaci jeong [facility] Unavailable [phone] Unavailable [phone] Roshni Nascimento RN Unavailable Unavailable Kiet Swain MD Unavailable [phone] Winsome Pike APRN BRINE PROCESS OPERATOR Unavailable [phone] Tori Hines [facility] Unavailable Miranda Queen [facility] Unavailable Unavailable Marisel Armando MD Unavailable Wesley Barrett MD Unavailable [phone] Dyan Fuentes MD Primary Care Provider [phone] Dyan Fuentes MD Unavailable [phone] Katiana Read MD Unavailable [phone] Mary Del Cid FISH[facility] CRAB Unavailable [phone] Elham Stack [facility] Unavailable [phone] Michelle GuzmanM, Podiatry /Foot and Ankle Surgery Unavailable Aubrey Jones MD Unavailable [phone] Blanquita Morales Unavailable Unavailable Aubrey Jones MD Unavailable [phone] Encounter Details Date Type Department Care Team (Late st Contact Info) Description 04/07/[address] [facility] [address] [place] [address] Rachelle Benites, WILD LIFE PHOTOGRAPHER Social History Tobacco Use Types Packs/Day Years [...] often do you attend [facility] or caodaism services? 1 to 4 times per year [...] Answer Date Recorded PHQ-2 Score 2 11/25/2022 [facility] of Occupat ional Health - Occupational Stress [...] place to sleep or slept in a long-term (including now)? No 10/16/2021 Adolescent Education Answer [...] st Contact Info) Description 08/18/2023 3:00 PM REEL AND REWINDER OPERATOR Office Visit [place] [address] [place] [phone] Katiana Read MD [address] [place] [address] documented as of this encounter Visit Diagnoses Not on filedocumented in this encounter Additional Health Concerns Assessment Noted Time PHQ-9 Depression Total Score: 10 023 8:26 AM CDT documented as of this encounter Care Teams Hvac Service Manager Relationship Specialty [place] [address] [place] [address] PCP - General Family Medicine 05/18/22 Jovany Gonzalez MD [facility] 6600 [facility] 605 [place] [address] Orthopedics 02/15/17 Staci Woodward [facility] [place] [address] [address] Nurse Practitioner Nurse Practitioner Psych/Mental Health 05/10/17 Reanna Smith, LAURA [address] [address] Bleach Plant Operator Dietitian, Registered 07/25/19 Roshni Nascimento RN Personal Advocate & Liaison (PAL) Family Medicine 08/18/20 Kiet Swain MD 2450 [facility] [address] [place] [address] Referring Physician Psychiatry 09/19/20 Winsome Pike APRN CNP [address] [place] [address] Nurse Practitioner Psychiatry 09/19/20 Tori Hines, [facility] 2450 [place] [address] Hardwood Floor Layer Hardwood Floor Layer - Clinical 09/19/20 Miranda Queen, [facility] [address] [place] [address] Pharmacist Pharmacist 11/12/20 Marisel Armando MD 909 [place], [place] [address] Gastroenterology 02/05/21 Wesley Barrett MD 420 [facility] 96 [place], [place] [address] Assigned Neuroscience Provider 05/10/21 [place] [address] [place] [address] Assigned PCP 05/15/22 Katiana Read MD [address] [address] Assigned Endocrinology Provider 06/19/22 [place] [address] [place] [address] Nurse Practitioner Nurse Practitioner 10/18/22 Elham Stack, [facility] [address] [place] [address] Pharmacist Pharmacist 10/19/22 iMchelle Guzman, DPM, Podiatry/Foot and Ankle Surgery [address] [place] [address] Assigned Musculoskeletal Provider 10/16/22 04/08/23 Aubrey Jones MD [address] [place] [address] Cardiovascular Disease 03/28/23 Blanquita Morales Bleach Plant Operator Diabetes Education 04/25/23 Aubrey Jones MD [address] [place] [address] Assigned Heart and Vascular Provider 05/07/23 documented as of this encounter
--- OUTSIDE RECORDS SUMMARY | 2023-08-03 09:58 | XMS_ITS | Encounter Summary ---
Author Name Unknown Organization [place] Address [address] [place] [address]. [place] [address] Care Team Providers Care Tightening Machine Operator Name Role Phone Jovany Gonzalez MD Unavailable CrissyStaci jeong NP Unavailable [phone] Unavailable [phone] Roshni Nascimento RN Unavailable Unavailable Kiet Swain MD Unavailable [phone] Winsome Pike APRN MULTICUT LINE OPERATOR Unavailable [phone] Tori Hines [facility] Unavailable Miranda Queen [facility] Unavailable Unavailable Marisel Armando MD Unavailable Wesley Barrett MD Unavailable [phone] Dyan Fuentes MD Primary Care Provider [phone] Dyan Fuentes MD Unavailable [phone] Katiana Read MD Unavailable [phone] Mary Del Cid SURVEY RESEARCH MANAGER Unavailable [phone] Elham Stack [facility] Unavailable [phone] Michelle Guzman DPM, Podiatry /Foot and Ankle Surgery Unavailable Dyan Fuentes MD Unavailable Encounter Details Date Type Department Care Team (Latest Contact Info) Description 02/14/2023 Travel Social History Tobacco Use Types Packs/Day [...] week 10/16/2021 How often do you attend [facility] or orthodox services? 1 to 4 times per year 10/16/2021 Do you belong to any clubs o r organizations such as worship groups, unions, fraternal or athletic groups, or [...] Answer Date Recorded PHQ-2 Score 2 11/25/2022 [facility] of Occupat ional Health - Occupational Stress [...] in a detention (including now)? No 10/16/2021 Education Answer Date [...] st Contact Info) Description 08/18/2023 3:00 PM TRUCK DOCK MATERIAL MOVER Office Visit [facility] [address] [place] [phone] Katiana Read MD [address] [place], [place] [address] documented as of this encounter Visit Diagnoses Not on filedocumented in this encounter Additional Health Concerns Assessment Noted Time PHQ-9 Depression Total Score: 10 023 8:26 AM CDT documented as of this encounter Care Teams Tightening Machine Operator Relationship Specialty [place] [address] [place] [address] PCP - General Family Medicine 05/18/22 Jovany Gonzalez MD [facility] 6600 [facility] 605 [place], [place] [address] Orthopedics 02/15/17 Staci Woodward, SURVEY RESEARCH MANAGER [facility] [address] [place], [place] [address] Nurse Practitioner Nurse Practitioner Psych/Mental Health 05/10/17 Reanna Smith, RD [facility] [address] [place], [place] [address] Human Service Technician Dietitian, Registered 07/25/19 Roshni Nascimento, RN Personal Advocate & Liaison (PAL) Family Medicine 08/18/20 Kiet Swain MD 2450 [facility]15 [place], [place] [address] Referring Physician Psychiatry 09/19/20 Winsome Pike APRN MULTICUT LINE OPERATOR [address] [address] Nurse Practitioner Psychiatry 09/19/20 Tori Hines, [facility] 2450 [place], [place] [address] Manager Integrated Manager Integrated - Clinical 09/19/20 Miranda Queen [facility] [address] [place] [address] Pharmacist Pharmacist 11/12/20 Marisel Armando MD 909 [place], [place] [address] Gastroenterology 02/05/21 Wesley Barrett MD 420 [facility] 96 [place] [address] Assigned Neuroscience Provider 05/10/21 [place] [address] [place] [address] Assigned PCP 05/15/22 Katiana Read MD [address] [place] [address] Assigned Endocrinology Provider 06/19/22 Mary Del Cid, RAFA[place] [address] [place] [address] Nurse Practitioner Nurse Practitioner 10/18/22 Elham Stack, [facility] 3033 [place] [address] Pharmacist Pharmacist 10/19/22 Michelle Guzman DPM, Podiatry/Foot and Ankle Surgery [address] [place] [address] Assigned Musculoskeletal Provider 10/16/22 04/08/23 [place] [address] [place] [address] Assigned Pain Medication Provider 12/04/22 04/01/23 documented as of this encounter
--- OUTSIDE RECORDS SUMMARY | 2023-08-03 09:58 | XMS_ITS | Encounter Summary ---
Author Name Unknown Organization [place] Address [address] [place] [address]. [place] [address] Care Team Providers Care Glost Tile Sorter Name Role Phone Jovany Gonzalez MD Unavailable CrissyStaci jeong NP Unavailable [phone] Unavailable Roshni Nascimento RN Unavailable Unavailable Kiet Swain MD Unavailable [phone] Winsome Pike APRN RADIO DESPATCHER Unavailable [phone] Tori Hines [facility] Unavailable Miranda Queen [facility] Unavailable Unavailable Marisel Armando MD Unavailable Wesley Barrett MD Unavailable [phone] Dyan Fuentes MD Primary Care Provider [phone] Dyan Fuentes MD Unavailable [phone] Katiana Read MD Unavailable [phone] Mary Del Cid EDUCATIONAL AIDE Unavailable [phone] Elham Stack [facility] Unavailable [phone] Michelle Guzman DPM, Podiatry /Foot and Ankle Surgery Unavailable Dyan Fuentes MD Unavailable Aubrey Jones MD Unavailable [phone] Encounter Details Date Type Department Care Team (Latest Contact Info) Description 03/28/2023 Travel Social History Tobacco Use Types Packs/Day [...] often do you attend chur ch or moravian services? 1 to 4 times per year 10/16/2021 Do you belong to any clubs o r organizations such as sabianism groups, unions, fraternal or athletic groups, or [...] Answer Date Recorded PHQ-2 Score 2 11/25/2022 [facility] [place] of Occupat ional Health - Occupational Stress [...] a senior living (including now)? No 10/16/2021 Education Answer Date [...] st Contact Info) Description 08/18/2023 3:00 PM ORCHID TRANSPLANTER Office Visit [facility] [address] [place] [address] Katiana Read MD [address] [facility] 200 [place], [place] [address] documented as of this encounter Visit Diagnoses Not on filedocumented in this encounter Additional Health Concerns Assessment Noted Time PHQ-9 Depression Total Score: 10 023 8:26 AM CDT documented as of this encounter Care Teams Glost Tile Sorter Relationship Specialty [place] [address] [place] [address] PCP - General Family Medicine 05/18/22 Jovany Gonzalez MD [facility] 6600 [facility] 605 [place], [place] [address] Orthopedics 02/15/17 Staci Woodward EDUCATIONAL AIDE [place] [facility] [address] [place], [place] [address] Nurse Practitioner Nurse Practitioner Psych/Mental Health 05/10/17 Reanna Smith, LAURA [facility] [facility] [address] [place] [address] Vice President Of Procurement Dietitian, Registered 07/25/19 Roshni Nascimento, RN Personal Advocate & Liaison (PAL) Family Medicine 08/18/20 Kiet Swain MD 2450 [facility]15 [place] [address] Referring Physician Psychiatry 09/19/20 Winsome Pike APRN RADIO DESPATCHER [address] [address] Nurse Practitioner Psychiatry 09/19/20 Tori Hines [facility] 2450 [place] [address] Cream Ripener Cream Ripener - Clinical 09/19/20 Miranda Queen [facility] [address] [place] [address] Pharmacist Pharmacist 11/12/20 Marisel Armando MD 909 [place], [place] [address] Gastroenterology 02/05/21 Wesley Barrett MD 420 [facility] 96 [place] [address] Assigned Neuroscience Provider 05/10/21 [place] [address] [place] [address] Assigned PCP 05/15/22 Katiana Read MD [address] [facility] 200 [place], [place] [address] Assigned Endocrinology Provider 06/19/22 Mary Del Cid, RAFAEL [address] [place] [address] Nurse Practitioner Nurse Practitioner 10/18/22 Elham Stack, [facility] [address] [place] [address] Pharmacist Pharmacist 10/19/22 Michelle Guzman DPM, Podiatry/Foot and Ankle Surgery [address] [place] [address] Assigned Musculoskeletal Provider 10/16/22 04/08/23 [place] [address] [place] [address] Assigned Pain Medication Provider 12/04/22 04/01/23 Aubrey Jones MD [address] [place] [address] Cardiovascular Disease 03/28/23 documented as of this encounter
--- OUTSIDE RECORDS SUMMARY | 2023-08-03 09:58 | XMS_ITS | Encounter Summary ---
Author Name Unknown Organization [facility] Address [address] [place] [address]. [place] [address] Care Team Providers Care English Composition Teacher Name Role Phone Jovany Gonzalez MD Unavailable CrissyStaci jeong NP Unavailable [phone] Unavailable Roshni Nascimento RN Unavailable Unavailable Kiet Swain MD Unavailable [phone] Winsome Pike APRN MULTICUT LINE OPERATOR Unavailable [phone] Tori Hines [facility] Unavailable Miranda Queen [facility] Unavailable Unavailable Marisel Armando MD Unavailable Wesley Barrett MD Unavailable [phone] Dyan Fuentes MD Primary Care Provider [phone] Dyan Fuentes MD Unavailable [phone] Katiana Read MD Unavailable [phone] Mary Del Cid BALLER TENDER Unavailable [phone] Elham Stack [facility] Unavailable [phone] Michelle Guzman DPM, Podiatry /Foot and Ankle Surgery Unavailable Dyan Fuentes MD Unavailable Aubrey Jones MD Unavailable + [phone] lBanquita Morales Unavailable Unavailable Aubrey Jones MD Unavailable + [phone] Encounter Details Date Type Department Care Team (Late st Contact Info) Description 03/30/[address] [facility] [address] [place] [address] Panchito Bustamante, LOGISTICS RESEARCH ENGINEER Social History Tobacco Use Types Packs/Day Years [...] How often do you attend chur or rastafari services? 1 to 4 times per year [...] Answer Date Recorded PHQ-2 Score 2 11/25/2022 [facility] [place] of Occupat ional Health - Occupational Stress [...] place to sleep or slept in a prison (including now)? No 10/16/2021 Education Answer Date [...] st Contact Info) Description 08/18/2023 3:00 PM MOTOR VEHICLE ASSEMBLER Office Visit [place] [address] [place] [phone] Katiana Read MD [address] [place] [address] documented as of this encounter Visit Diagnoses Not on filedocumented in this encounter Additional Health Concerns Assessment Noted Time PHQ-9 Depression Total Score: 10 023 8:26 AM CDT documented as of this encounter Care Teams English Composition Teacher Relationship Specialty [place] [address] [place] [address] PCP - General Family Medicine 05/18/22 Jovany Gonzalez MD [facility] 6600 [facility] 605 [place] [address] Orthopedics 02/15/17 Staci Woodward BALLER TENDER [place] [address] [place] [address] Nurse Practitioner Nurse Practitioner Psych/Mental Health 05/10/17 Reanna Smith, LAURA [address] [address] Sales Data Analyst Dietitian, Registered 07/25/19 Roshni Nascimento, RN Personal Advocate & Liaison (PAL) Family Medicine 08/18/20 Kiet Swain MD 2450 [facility] [address]15 [place] [address] Referring Physician Psychiatry 09/19/20 Winsome Pike APRN CNP [address] [place] [address] Nurse Practitioner Psychiatry 09/19/20 Tori Hines, [facility] 2450 [place] [address] Ham Clerk Ham Clerk - Clinical 09/19/20 Miranda Queen [facility] [address] [place] [address] Pharmacist Pharmacist 11/12/20 Marisel Armando MD 909 [place], [place] [address] Gastroenterology 02/05/21 Wesley Barrett MD 420 [facility] 96 [place], [place] [address] Assigned Neuroscience Provider 05/10/21 [place] [address] [place] [address] Assigned PCP 05/15/22 Katiana Read MD [address] [facility] 200 [place], [place] [address] Assigned Endocrinology Provider 06/19/22 [place] [address] [place] [address] Nurse Practitioner Nurse Practitioner 10/18/22 Elham Stack, [facility] [address] [place] [address] Pharmacist Pharmacist 10/19/22 Michelle Guzman DPM, Podiatry/Foot and Ankle Surgery [address] [place] [address] Assigned Musculoskeletal Provider 10/16/22 04/08/23 [place] [address] [place] [address] Assigned Pain Medication Provider 12/04/22 04/01/23 Aubrey Jones MD [address] [place] [address] Cardiovascular Disease 03/28/23 Blanquita Morales Sales Data Analyst Diabetes Education 04/25/23 Aubrey Jones MD [address] [place] [address] Assigned Heart and Vascular Provider 05/07/23 documented as of this encounter
--- OUTSIDE RECORDS SUMMARY | 2023-08-03 09:58 | XMS_ITS | Encounter Summary ---
Author Name Unknown Organization [place] Address [address] [place] [address]. [place] [address] Care Team Providers Care Fuel Agent Name Role Phone Jovany Gonzalez MD Unavailable CrissyStaci jeong NP Unavailable [phone] Unavailable Roshni Nascimento RN Unavailable Unavailable Kiet Swain MD Unavailable [phone] Winsome Pike APRN CERTIFIED CORPORATE TRAVEL EXECUTIVE Unavailable [phone] Tori Hines [facility] Unavailable Miranda Queen [facility] Unavailable Unavailable Marisel Armando MD Unavailable Wesley Barrett MD Unavailable [phone] Dyan Fuentes MD Primary Care Provider [phone] Dyan Fuentes MD Unavailable [phone] Katiana Read MD Unavailable [phone] Mary Del Cid ASSOCIATE FINANCIAL PLANNER Unavailable [phone] Elham Stack [facility] Unavailable [phone] Michelle Guzman DPM, Podiatry /Foot and Ankle Surgery Unavailable Dyan Fuentes MD Unavailable Aubrey Jones MD Unavailable [phone] Reason for Visit * Reason Onset Date Comments Panel Management 03/30/2023 Encounter Details Date Type Department Care Team (Late st Contact Info) Description 03/30/2023 Telephone [facility] [address] [place] [address] [place] [address] [place] [address] Panel Management Social History Tobacco [...] How often do you attend [facility] or hindu services? 1 to 4 times per year [...] PHQ-2 Score 2 11/25/2022 [facility] of Occupat ional [facility] - Occupational [...] Telephone Encounter - Panchito Bustamante CMA - 03/30/2023 4:31 PM CDT Patient Quality Outreach Patient is due for the following: Breast Cancer Screening - Mammogram Next Steps: Advise mammogram is due Type of outreach: Sent BenchPrep message. Next Steps: Reach out within 90 days via Phone. Max number of attempts reached: No. Will try again in 90 days if patient still on fail list. Questions for provider review: None Panchito Bustamante CMA Chart routed to none. documented in this encounter Plan of Treatment Upcoming Encounters Date Type Department Care Team (Late st Contact Info) Description 08/18/2023 3:00 PM NUTRITION INTERNSHIP Office Visit [facility] [address] [facility] [address] [place] [address] Katiana Read MD [address] [place], [place] [address] documented as of this encounter Visit Diagnoses Not on filedocumented in this encounter Additional Health Concerns Assessment Noted Time PHQ-9 Depression Total Score: 10 023 8:26 AM CDT documented as of this encounter Care Teams Fuel Agent Relationship Specialty [place] [address] [place] [address] PCP - General Family Medicine 05/18/22 Jovany Gonzalez MD [facility] 6600 [facility] 605 [place], [place] [address] Orthopedics 02/15/17 Staci Woodward ASSOCIATE FINANCIAL PLANNER [place] [address] [place], [place] [address] Nurse Practitioner Nurse Practitioner Psych/Mental Health 05/10/17 Reanna Smith, RD [place] [address] [place], [place] [address] Top Bottom Attaching Machine Operator Dietitian, Registered 07/25/19 Roshni Nascimento, RN Personal Advocate & Liaison (PAL) Family Medicine 08/18/20 Kiet Swain MD [address] [place] [address] Referring Physician Psychiatry 09/19/20 Winsome Pike APRN CERTIFIED CORPORATE TRAVEL EXECUTIVE [address] [place] [address]1684 Nurse Practitioner Psychiatry 09/19/20 Tori Hines, [facility] [address] [place] [address] [address] [address] Patrol Commander Highway Patrol Commander - Clinical 09/19/20 Miranda Queen [facility] [address] [place] [address] Pharmacist Pharmacist 11/12/20 Marisel Armando MD 9 [place], [place] [address] Gastroenterology 02/05/21 Wesley Barrett MD [address] [place] [address] 96 [place], [place] [address] Assigned Neuroscience Provider 05/10/21 [place] [address] [place] [address] Assigned PCP 05/15/22 Katiana Read MD [address] [facility] 200 [place] [address] Assigned Endocrinology Provider 06/19/22 [place] [address] [place] [address] Nurse Practitioner Nurse Practitioner 10/18/22 Elham Stack, [facility] [address] [place] [address] Pharmacist Pharmacist 10/19/22 Michelle Guzman, DPM, Podiatry/Foot and Ankle Surgery [address] [facility] 300 [place] [address] Assigned Musculoskeletal Provider 10/16/22 04/08/23 [place] [address] [place] [address] Assigned Pain Medication Provider 12/04/22 04/01/23 Aubrey Jones MD [address] [place] [address] Cardiovascular Disease 03/28/23 documented as of this encounter
--- OUTSIDE RECORDS SUMMARY | 2023-08-03 09:58 | XMS_ITS | Encounter Summary ---
Author Name Unknown Organization [facility] Address [address] [place] [address]. [place] [address] Care Team Providers Care System Operation Superintendent Name Role Phone Jovany Gonzalez MD Unavailable CrissyStaci jeong VIOLIN TEACHER Unavailable [phone] Unavailable [phone] Roshni Nascimento RN Unavailable Unavailable Kiet Swain MD Unavailable [phone] Winsome Pike APRN RUBBER GRINDER Unavailable [phone] Tori Hines [facility] Unavailable Miranda Queen [facility] [place] Unavailable Unavailable Marisel Armando MD Unavailable Wesley Barrett MD Unavailable [phone] Dyan Fuentes MD Primary Care Provider [phone] Dyan Fuentes MD Unavailable [phone] Katiana Read MD Unavailable [phone] Mary Del Cid VIOLIN TEACHER Unavailable + [phone] Elham Stack [facility] Unavailable [phone] Aubrey Jones MD Unavailable [phone] Blanquita Morales Unavailable Unavailable Aubrey Jones MD Unavailable [phone] Reason for Visit * Reason Onset Date Comments Opioid Refill 04/15/2023 buprenorphine HC l-naloxone HCl (SUBOXONE) 4-1 MG per film Encounter Details Date Type Department Care Team (Late st Contact Info) Description 04/15/2023 Refill [facility] [place] [address] [facility] [address] [place] [address] [place] [address] [place] [address] Opioid Refill (buprenorphine HCl-naloxone HCl (SUBOXONE) 4-1 [...] Answer Date Recorded PHQ-2 Score 2 11/25/2022 [facility] - Occupational Stress Questionnaire Answer Date [...] place to sleep or slept in a skilled nursing (including now)? No 10/16/2021 Adolescent Education Answer [...] Telephone Encounter - Janine Argueta RN - 04/15/2023 11:37 AM CDT Routing to provider pool to review medication prepped per below for Mary Del Cid pt buprenorphine HCl-naloxone HCl (SUBOXONE) 4-1 MG per film , #60, Refill:0 Sig:Place 0.5 Film under the tongue 4 times daily - Sublingual Last picked up 03/15/23 with start on 03/15/23 Due: Fill and start 04/15/23 Per last OV note 02/14/23: Suboxone increased up to 2/1 mg four times per day. May refill every 30 days. May fill 02/20/23 and start 02/23/23. [facility] - [place], [place] - [address] [facility] [address] [facility] [address] Janine Raymundo RN Veterinary Pharmacologist [facility] * Telephone Encounter - Gildardo Yeung - 04/15/2023 10:55 AM CDT Received refill request for: buprenorphine HCl-naloxone HCl (SUBOXONE) 4-1 MG per film Last dispensed from pharmacy on 03/15/2023. Patient's last office/virtual visit by prescribing provider on 02/14/2023. Next office/virtual appointment scheduled for 04/18/2023. Last urine drug screen date 11/25/2022. Current opioid agreement on file? Yes Date of opioid agreement: 11/11/2022. E-prescribe to: [facility] - [place], [place] - [address] Will route to [facility] for review and preparation of prescription(s). * Telephone Encounter - Blanquita Perera, RN - 04/15/2023 10:44 AM CDT Routed to [facility] to gather required information for opioid refill. Blanquita LEAHY, RN Veterinary Pharmacologist [facility] * Telephone Encounter - Nerissa Evans - 04/15/2023 10:31 AM CDT [facility] Call Center Phone Message May a detailed message be left on voicemail: yes Reason for Call: Medication Refill Request Has the patient contacted the pharmacy for the refill? Yes Name of medication being requested: buprenorphine HCl-naloxone HCl (SUBOXONE) 4- 1 MG per film Provider who prescribed the medication: Mary Del Cid Pharmacy: [facility] Date medication is needed: RAFAELA documented in this encounter Plan of Treatment Upcoming Encounters Date Type Department Care Team (Late st Contact Info) Description 08/18/2023 3:00 PM FINISHER ACCORDION Office Visit [facility] [address] [place] [address] Katiana Read MD [address] [place] [address] documented as of this encounter Visit Diagnoses Diagnosis Chronic pain syndrome documented in this encounter Additional Health Concerns Assessment Noted Time PHQ-9 Depression Total Score: 10 11/25/ 023 8:26 AM CDT documented as of this encounter Care Teams System Operation Superintendent Relationship Specialty [place] [address] [place] [address] PCP - General Family Medicine 05/18/22 Jovany Gonzalez MD [facility] [address] [facility] [address] [place], [place] [address] Orthopedics 02/15/17 Staci Woodward, VIOLIN TEACHER [place] [address] [place], [place] [address] Nurse Practitioner Nurse Practitioner Psych/Mental Health 05/10/17 Reanna Smith, RD [place] [address] [place] [address] Lyft Driver Dietitian, Registered 07/25/19 Roshni Nascimento, RN Personal Advocate & Liaison (PAL) Family Medicine 08/18/20 Kiet Swain MD [address] [place] [address] Referring Physician Psychiatry 09/19/20 Winsome Pike APRN RUBBER GRINDER [address] [place] [address] 677854 Nurse Practitioner Psychiatry 09/19/20 Tori Hines, [facility] [address] [place], [place] [address] Executive Legal Secretary Executive Legal Secretary - Clinical 09/19/20 Miranda Queen [facility] [address] [place] [address] Pharmacist Pharmacist 11/12/20 Marisel Armando MD [address] [place], [place] [address] Gastroenterology 02/05/21 Wesley Barrett MD [address] [facility] [address] [place] [address] Assigned Neuroscience Provider 05/10/21 [place] [address] [place] [address] Assigned PCP 05/15/22 Katiana Read MD [address] [place], [place] [address] Assigned Endocrinology Provider 06/19/22 [place] [address] [place] [address] Nurse Practitioner Nurse Practitioner 10/18/22 Elham Stack, [facility] [address] [place] [address] Pharmacist Pharmacist 10/19/22 Aubrey Jones MD [address] [place] [address] Cardiovascular Disease 03/28/23 Blanquita Morales Lyft Driver Diabetes Education 04/25/23 Aubrey Jones MD [address] [place] [address] Assigned Heart and Vascular Provider 05/07/23 documented as of this encounter
--- OUTSIDE RECORDS SUMMARY | 2023-08-03 09:59 | XMS_ITS | Encounter Summary ---
Author Name Unknown Organization [facility] Address [address] [place] [address]. [place] [address] Care Team Providers Care Federal Agent Name Role Phone Jovany Gonzalez MD Unavailable CrissyStaci jeong CARTOON DESIGNER Unavailable [phone] Unavailable Roshni Nascimento RN Unavailable Unavailable Kiet Swain MD Unavailable [phone] Winsome Pike APRN RENTAL CLERK Unavailable [phone] Tori Hines [facility] Unavailable Miranda Queen [facility] Unavailable Unavailable Marisel Armando MD Unavailable Wesley Barrett MD Unavailable [phone] Dyan Fuentes MD Primary Care Provider [phone] Dyan Fuentes MD Unavailable [phone] Katiana Read MD Unavailable [phone] Meme Singleton PhD Unavailable [phone] Mary Del Cid CARTOON DESIGNER Unavailable [phone] Elham Stack [facility] Unavailable [phone] Michelle Guzman DPM, Podiatry /Foot and Ankle Surgery Unavailable Dyan Fuentes MD Unavailable [phone] Reason for Referral * Consultation (Routine: Next available opening) - Referral NOT Required Specialty Diagnoses / Procedures Referred By Contac t Referred To Contact Surgery Diagnoses Encounter for insertion of venous access port Lipoma [place] [address] [place] [address] [facility] [address] [place] [address] Referral ID Status Reason Start Date Expiration Date V isits Requested Visits Authorized Referral NOT Required 12/30/2022 12/30/2023 1 1 Question Answer Preferred Location: [facility] [place] Scheduling Instructions: Please call to schedule your appointment Comments Please be aware that coverage of these services is subject to the terms and limitations of your health insurance plan. Call member services at your health plan with any benefit or coverage questions. Please call to schedule your appointment * CV Cardio consult (Routine: Next available opening) - Closed Specialty Diagnoses / Procedures Referred By Contact Referred To Contact Cardiovascular Disease Diagnoses [place] [address] [place] [address] Referral ID Status Reason Start Date Expiration Date Visits Re quested Visits Authorized Closed 12/30/2022 12/30/2023 1 1 Question Answer Reason for Consult: General Cardiology Scheduling Instructions: [employer] will call you to coordinate your care as prescribed by your provider. If you don't hear from a credit resolution representative within 2 business days, please call [phone]. Comments Please be aware that coverage of these services is subject to the terms and limitations of your health insurance plan. Call member services at your health plan with any benefit or coverage questions. [employer] will call you to coordinate your care as prescribed by your provider. If you don't hear from a credit resolution representative within 2 business days, please call [phone]. Reason for Visit * Reason Comments ER F/U Encounter Details Date Type Department Care Team (Late st Contact Info) Description 12/30/2022 3:00 PM CDT Office Visit [facility] [id number] [place] [address] [place] [address] [place] [address] Hospital discharge follow-up (Primary Dx); Acute on chronic pancreatitis (H); Abnormal electrocardiogram; Troponin level elevated; Type 2 diabetes mellitus without complication, without long-term current use of insulin (H); Tobacco dependence; Encounter for insertion of venous access port; Lipoma of skin and subcutaneous tissue Social History Tobacco Use Types Packs/Day Years Used Date Smoking Tobacco: Every Day Cigarettes 1 50 Smokeless Tobacco: Never Tobacco Cessation:Ready to Q uit: Not Asked; Counseling Given: Not Answered Comments:down to 4 cigs per day. Quitting [...] often do you attend chur ch or latter day services? 1 to 4 times per year [...] Answer Date Recorded PHQ-2 Score 2 11/25/2022 [facility] - Occupational [...] place to sleep or slept in a fdc (including now)? No 10/16/2021 Education Answer Date [...] suspected to have Coronavirus/COVID-19? No / Unsure 12/30/2022 2:18 PM CDT documented as of this encounter Last Filed Vital Signs Vital Sign Reading Time Taken Comments Blood Pressure 132/81 12/30/2022 2:39 PM CDT Pulse 69 12/30/2022 2:39 PM CDT Temperature 36.7 ??C (98.1 ??F) 12/30/2022 2:39 PM CD T Respiratory Rate 14 12/30/2022 2:39 PM CDT Oxygen Saturation 96% 12/30/2022 2:39 PM CDT Inhaled Oxygen Concentration - - Weight 107.5 kg (237 lb) 12/30/2022 2:39 PM CDT Height 172.7 cm (5' 8) 12/30/2022 2:39 PM CDT Body Mass Index 36.04 12/30/2022 2:39 PM CDT documented in this encounter Progress Notes * Roshni Nascimento RN - 12/30/2022 3:00 PM CDT Pre-Visit Planning Appointment Notes for this encounter: ER follow up and labs Questionnaires Reviewed/Assigned No additional questionnaires are needed {Patient contact not needed. PAL did speak with pt - See discharge summary Roshni Nascimento RN * Dyan Fuentes MD - 12/30/2022 3:00 PM CDT Assessment & Plan Hospital discharge follow-up Acute on chronic pancreatitis (H) - resolved - she was advised to abstain from alcohol Abnormal electrocardiogram - Adult Cardiology Eval Heel Former Referral; Future Troponin level elevated - during hospitalization, no chest pain. Was advised to have stress testing. Will have her see cardiology to discuss this further. Type 2 diabetes mellitus without complication, without long-term current use of insulin (H) - stable Tobacco dependence - she is contemplative Encounter for insertion of venous access port - she is interested in having a port placed for IV access. She is a tough stick and has found this easier in the past. - Adult General Surg Referral; Future Lipoma of skin and subcutaneous tissue - she reports painful with bending over. Recent CT scan showed no signs of hernia, despite area being near a surgical scar. - Adult General Surg Referral; Future Post Medication Reconciliation Status: Discharge medications reconciled, continue medications without change Dyan Fuentes MD [facility] Bright is a 62 year old, presenting for the following health issues: ER F/U 11/25/2022 3:02 PM Additional Questions Roomed by Sarah Daily [facility] Hospital Follow-up Visit: Hospital/Jail/IP Rehab Facility: [facility] Date of Admission: 12-03-22 Date of Discharge: 12-11-22 Reason(s) for Admission: acute on chronic pancreatitis Was your hospitalization related to COVID-19? No Problems taking medications regularly: None Medication changes since discharge: None Problems adhering to non-medication therapy: None Summary of hospitalization: [facility] discharge summary reviewed Diagnostic Tests/Treatments reviewed. Follow up needed: none Other Healthcare Providers Involved in Patient???s Care: None Update since discharge: improved. Plan of care communicated with patient Review of Systems Constitutional, HEENT, cardiovascular, pulmonary, gi and gu systems are negative, except as otherwise noted. Objective BP 132/81 (BP Location: Right arm, Patient Position: Sitting, Cuff Size: Adult Large) Pulse 69 Temp 98.1 ??F (36.7 ??C) (Oral) Resp 14 Ht 1.727 m (5' 8) Wt 107.5 kg (237 lb) LMP (LMP Unknown) SpO2 96% BMI 36.04 kg/m?? Body mass index is 36.04 kg/m??. Physical Exam GENERAL: healthy, alert and no distress PSYCH: mentation appears normal, affect normal/bright documented in this encounter Plan of Treatment Upcoming Encounters Date Type Department Care Team (Late st Contact Info) Description 08/18/2023 3:00 PM BAR WAITER/WAITRESS Office Visit [facility] [address] [place] [phone] Katiana Read MD [address] [place], [place] [address] Scheduled Referrals Name Type Priority Associated Diagnoses Orde r Schedule Adult Cardiology Eval Heel Former Referral Referral Routine: Next available opening Abnormal electrocardiogram Expected: 12/30/2022 (Approximate), Expires: 12/31/2023 Adult General Surg Referral Referral Routine: Next available opening Encounter for insertion of venous access port Lipoma of skin and subcutaneous tissue Expected: 12/30/2022 (Approximate), Expires: 12/31/2023 documented as of this encounter Visit Diagnoses Diagnosis Hospital discharge follow-up- Primary Other follow-up examination Acute on chronic pancreatitis (H) Abnormal electrocardiogram Nonspecific abnormal electrocardiogram (ECG) (EKG) Troponin level elevated Other abnormal blood chemistry Type 2 diabetes mellitus without complication, without long-term current use of insulin (H) Tobacco dependence Tobacco use disorder Encounter for insertion of venous access port Lipoma of skin and subcutaneous tissue Lipoma of other skin and subcutaneous tissue documented in this encounter Additional Health Concerns Assessment Noted Time PHQ-9 Depression Total Score: 10 023 8:26 AM CDT documented as of this encounter Care Teams Federal Agent Relationship Specialty [place] [address] [place] [address] PCP - General Family Medicine 05/18/22 Jovany Gonzalez MD [facility] [address] [facility] [address] [place] [address] Orthopedics 02/15/17 Staci Woodward CARTOON DESIGNER [place] [address] [place] [address] Nurse Practitioner Nurse Practitioner Psych/Mental Health 05/10/17 Reanna Smith, RD [place] [address] [place] [address] Quantometer Operator Dietitian, Registered 07/25/19 Roshni Nascimento, RN Personal Advocate & Liaison (PAL) Family Medicine 08/18/20 Kiet Swain MD [address] [place] [address] Referring Physician Psychiatry 09/19/20 Winsome Pike APRN RENTAL CLERK [address] [place] [address] Nurse Practitioner Psychiatry 09/19/20 Tori Hines, [facility] [place] [address] Steel Rigger Steel Rigger - Clinical 09/19/20 Miranda Queen [facility] [address] [place] [address] Pharmacist Pharmacist 11/12/20 Marisel Armando MD [address] [place] [address] Gastroenterology 02/05/21 Wesley Barrett MD [address] [place] [address] [address] [place] [address] Assigned Neuroscience Provider 05/10/21 [place] [address] [place] [address] Assigned PCP 05/15/22 Katiana Read MD [address] [facility] [address] [place] [address] Assigned Endocrinology Provider 06/19/22 [place] [address] [place] [address] Assigned Behavioral Health Provider 07/03/22 12/31/22 [place] [address] [place] [address] Nurse Practitioner Nurse Practitioner 10/18/22 Elham Stack, [facility] [address] [place] [address] Pharmacist Pharmacist 10/19/22 Michelle Guzman, ALDOM, Podiatry/Foot and Ankle Surgery [address] [place] [address] [address] Assigned Musculoskeletal Provider 10/16/22 04/08/23 [place] [address] [place] [address] Assigned Pain Medication Provider 12/04/22 04/01/23 documented as of this encounter
--- OUTSIDE RECORDS SUMMARY | 2023-08-03 09:59 | XMS_ITS | Encounter Summary ---
Author Name Unknown Organization [place] Address [address] [place] [address]. [place] [address] Care Team Providers Care Inspector Brake Lining Name Role Phone Jovany Gonzalez MD Unavailable CrissyStaci jeong CANE PACKER Unavailable [phone] Unavailable Roshni Nascimento RN Unavailable Unavailable Kiet Swain MD Unavailable [phone] Winsome Pike APRN WAGON DRILL OPERATOR Unavailable [phone] Tori Hines [facility] Unavailable Miranda Queen [facility] Unavailable Unavailable Marisel Armando MD Unavailable Marisel Armando MD Unavailable Wesley Barrett MD Unavailable [phone] Dyan Fuentes MD Primary Care Provider [phone] Dyan Fuentes MD Unavailable [phone] Katiana Read MD Unavailable [phone] Meme Singleton PhD Unavailable [phone] Mary Del Cid CANE PACKER Unavailable [phone] Elham Stack [facility] Unavailable [phone] Michelle Guzman DPM, Podiatry /Foot and Ankle Surgery Unavailable Dyan Fuentes MD Unavailable [phone] Reason for Referral * CV Testing (Routine) - Closed Specialty Diagnoses / Procedures Referred By Contac t Referred To Contact Cardiology Diagnoses Abnormal electrocardiogram Chronic diastolic (congestive) heart failure Procedures Echocardiogram Complete ZZHC TTE W/DOPPLER, COMPLETE ZZHC ECHO COMPLETE W DOPPLER W CONTRAST ZZHC ECHO COMPLETE W DOPPLER W/O CONTRAST ZZHC IV PUSH SINGLE, INITIAL SUBSTANCE ZZHC US GUIDE FOR PERICARDIOCENTESIS ZZHC ECHO MYOCARD BX ZZC INJECTION, PERFLUTREN LIPID MICROSPHERES, PER ML ZZHC STATISTIC IV PUSH SINGLE INITIAL SUBSTANCE OK ECHO MYOCARD BX OK INJECTION, PERFLUTREN LIPID MICROSPHERES, PER ML OK TTE W/DOPPLER, COMPLETE OK IV PUSH SINGLE, INITIAL SUBSTANCE OK TTE W/DOPPLER, COMPLETE OK TTE W/DOPPLER, COMPLETE HC US GUIDE FOR PERICARDIOCENTESIS HC ECHO MYOCARD BX HC IV PUSH SINGLE, INITIAL SUBSTANCE HC STATISTIC IV PUSH SINGLE INITIAL SUBSTANCE HC ECHO COMPLETE W DOPPLER W CONTRAST HC ECHO COMPLETE W DOPPLER W/[place] [address] [place] [address] Cv Cardiac Svc [facility] [address] [facility] [address] [place] [address] Referral ID Status Reason Start Date Expiration Date Visits Re quested Visits Authorized [id number] Closed 10/25/2022 10/25/2023 1 1 Reason for Visit * CV Testing (Routine) - Closed Specialty Diagnoses / Procedures Referred By Jose R kelly Referred To Contact Cardiology Diagnoses Abnormal electrocardiogram Chronic diastolic (congestive) heart failure Procedures Echocardiogram Complete ZZHC TTE W/DOPPLER, COMPLETE ZZHC ECHO COMPLETE W DOPPLER W CONTRAST ZZHC ECHO COMPLETE W DOPPLER W/O CONTRAST ZZHC IV PUSH SINGLE, INITIAL SUBSTANCE ZZHC US GUIDE FOR PERICARDIOCENTESIS ZZHC ECHO MYOCARD BX ZZC INJECTION, PERFLUTREN LIPID MICROSPHERES, PER ML ZZHC STATISTIC IV PUSH SINGLE INITIAL SUBSTANCE OK ECHO MYOCARD BX OK INJECTION, PERFLUTREN LIPID MICROSPHERES, PER ML OK TTE W/DOPPLER, COMPLETE OK IV PUSH SINGLE, INITIAL SUBSTANCE OK TTE W/DOPPLER, COMPLETE OK TTE W/DOPPLER, COMPLETE HC US GUIDE FOR PERICARDIOCENTESIS HC ECHO MYOCARD BX HC IV PUSH SINGLE, INITIAL SUBSTANCE HC STATISTIC IV PUSH SINGLE INITIAL SUBSTANCE HC ECHO COMPLETE W DOPPLER W CONTRAST HC ECHO COMPLETE W DOPPLER W/[place] [address] [place] [address] Rh Cv Cardiac Svc [facility] [address] [place] [address] Referral ID Status Reason Start Date Expiration Date Visits Re quested Visits Authorized [id number] Closed 10/25/2022 10/25/2023 1 1 Encounter Details Date Type Department Care Team (Latest Contact Info) Description 12/17/2022 2:45 PM CDT - 12/17/2022 11:59 PM CDT Hospital Encounter [facility] [address] [facility] [address] [place] [address] [place] [address] [place] [address] Abnormal electrocardiogram; Chronic diastolic congestive heart failure (H) Discharge Disposition: Home or Self Care Social History Tobacco Use Types Packs/Day Years [...] week 10/16/2021 How often do you attend [facility] or oriental orthodox services? 1 to 4 times per year 10/16/2021 Do you belong to any clubs o r organizations such as tenriism groups, unions, fraternal or athletic groups, or [...] Answer Date Recorded PHQ-2 Score 2 11/25/2022 [facility] Occupat ional [facility] - Occupational Stress Questionnaire Answer [...] place to sleep or slept in a half-way (including now)? No 10/16/2021 Education Answer Date [...] suspected to have Coronavirus/COVID-19? No / Unsure 12/17/2022 2:59 PM CDT documented as of this encounter Medications at Time of Discharge Medication Sig Dispensed Refills Start Date End Date aspirin 81 MG EC tablet Take 81 mg by mouth daily 0 brexpiprazole (REXULTI) 2 MG tablet Take 2 mg by mouth daily 0 calcium carbonate (OS-ALISA) 1500 (600 Ca) MG tabletIndications:Tob acco dependence Take 1 tablet (600 mg) by mouth 2 times daily (with meals) 100 tablet 0 05/06/2021 clonazePAM (KLONOPIN) 1 MG tablet Take 1 mg by mouth 2 times daily 0 Continuous Blood Gluc Location And Measurement Technician (DEXCOM G6 APPLICATION SERVICES MANAGER) DEVIIndications:Type 2 diabetes mellitus without complication, with long-term current use of insulin (H) USE DAILY 1 each 0 06/15/2022 desvenlafaxine (PRISTIQ) 100 MG 24 hr tabletIndications:Anx iety TAKE 1 TABLET BY MOUTH EVERY DAY 90 tablet 0 12/02/2021 desvenlafaxine (PRISTIQ) 50 MG 24 hr tabletIndications:Anx iety TAKE 1 TABLET BY MOUTH ONCE DAILY TAKE WITH 100MG TABS FOR A TOTAL DAILY DOSE OF 150MGS 90 tablet 0 03/08/2022 EPINEPHrine (ANY BX GENERIC EQUIV) 0.3 MG/0.3ML injection 2-packIndications:Bee sting allergy Inject 0.3 mLs (0.3 mg) into the muscle as needed for anaphylaxis (EPI-PEN) 2 each 1 06/14/2022 ferrous sulfate (FEROSUL) 325 (65 Fe) MG tabletIndications:Gen eralized muscle weakness,Hypokalemia, Tobacco dependence Take 325 mg by mouth daily (with breakfast) 100 tablet 1 05/06/2021 hydrOXYzine (ATARAX) 25 MG tablet Take 25 mg by mouth 4 times daily 0 naloxone (NARCAN) 4 MG/0.1ML nasal sprayIndications:At risk for substance overdose [place] 1 spray (4 mg) into one nostril alternating nostrils once as needed for opioid reversal 0.2 mL 0 11/11/2022 nitroGLYcerin (NITROSTAT) 0.4 MG sublingual tabletIndications:Ariadna st pain, unspecified type Place 1 tablet (0.4 mg) under the tongue every 5 minutes as needed for chest pain 25 tablet 0 08/20/2019 nystatin (MYCOSTATIN) 515136 UNIT/GM external ointment Apply topically 2 times daily as needed 0 ondansetron (ZOFRAN) 8 MG tabletIndications:[place] sea Take 1 tablet (8 mg) by mouth every 8 hours as needed for nausea 90 tablet 1 11/25/2022 Potassium Gluconate 595 MG CAPSIndications:Gener alized muscle weakness Take 1 capsule by mouth daily 100 capsule 1 05/06/2021 simethicone (MYLICON) 80 MG chewable tabletIndications:Becerra colitis (H) Take 1 tablet (80 mg) by mouth every 6 hours as needed for flatulence or cramping 0 10/28/2022 Vitamin D3 (VITAMIN D, CHOLECALCIFEROL,) 25 mcg (1000 units) tablet Take 1 tablet by mouth daily 0 albuterol (PROAIR HFA/PROVENTIL HFA/VENTOLIN HFA) 108 (90 Base) MCG/ACT inhalerIndications:Ch ronic obstructive pulmonary disease, unspecified COPD type (H) Inhale 2 puffs into the lungs every 4 hours as needed for shortness of breath / dyspnea or wheezing 8.5 g 0 05/07/2022 05/03/2023 amLODIPine (NORVASC) 10 MG tabletIndications:Edmundo ign essential hypertension Take 1 tablet (10 mg) by mouth daily 90 tablet 3 06/14/2022 05/12/2023 buprenorphine HCl-naloxone HCl (SUBOXONE) 2-0.5 MG per filmIndications:Chron ic pain syndrome Place 1 Film under the tongue 3 times daily OK to fill 11/27/22 start 11/29/22. May refill every 30 days. 90 Film 2 11/11/2022 01/27/2023 colestipol (COLESTID) 1 g tablet Take 1 tablet by mouth 2 times daily 0 05/12/2023 Continuous Blood Gluc Sensor (DEXCOM G6 SENSOR) MISCIndications:Type 2 diabetes mellitus without complication, with long-term current use of insulin (H) USE 1 SENSOR EVERY 10 DAYS 9 each 3 06/15/2022 05/12/2023 Continuous Blood Gluc Transmit (DEXCOM G6 TRANSMITTER) MISCIndications:Type 2 diabetes mellitus without complication, with long-term current use of insulin (H) Change every 3 months to continuously monitor blood glucose. 1 each 3 06/15/2022 07/21/2023 cyanocobalamin (CYANOCOBALAMIN) 1000 MCG/ML injectionIndications: Vitamin B12 deficiency INJECT 1 ML (1000 MCG) INTRAMUSCULARLY EVERY 30 DAYS. DISCARD 28 DAYS AFTERFIRST USE Strength: 1,000 mcg/mL 3 mL 3 06/14/2022 05/12/2023 fenofibrate (TRICOR) 48 MG tabletIndications:Hyp ertriglyceridemia Take 1 tablet (48 mg) by mouth daily 90 tablet 3 06/14/2022 05/12/2023 insulin aspart (NOVOLOG FLEXPEN) 100 UNIT/ML penIndications:Type 1 diabetes mellitus with diabetic neuropathy (H) INJECT 1 UNIT FOR 50 POINTS ABOVE 150 WITH EACH MEAL (TOTAL DAILY DOSE 10-15 UNITS PER DAY) 15 mL 1 05/07/2022 07/12/2023 insulin glargine (BASAGLAR KWIKPEN) 100 UNIT/ML penIndications:Type 2 diabetes mellitus without complication, with long-term current use of insulin (H) Inject 10 Units Subcutaneous every morning 15 mL 1 05/07/2022 04/25/2023 levothyroxine (SYNTHROID/LEVOTHROID ) 175 MCG tabletIndications:Pos tprocedural hypothyroidism Take 2 tablets (350 mcg) by mouth daily 180 tablet 1 06/15/2022 07/14/2023 methocarbamol (ROBAXIN) 500 MG tabletIndications:Chr onic pain syndrome,Muscle spasm Take 2 tablets (1,000 mg) by mouth 4 times daily 150 tablet 2 11/11/2022 02/14/2023 metoprolol tartrate (LOPRESSOR) 25 MG tabletIndications:Edmundo ign essential hypertension TAKE 1 TABLET BY MOUTH TWICE A DAY 180 tablet 3 06/14/2022 05/12/2023 omega-3 acid ethyl esters (LOVAZA) 1 g capsuleIndications:Hy pertriglyceridemia TAKE 2 CAPSULES BY MOUTH TWICE A DAY 360 capsule 1 04/20/2021 05/12/2023 pantoprazole (PROTONIX) 40 MG EC tabletIndications:Gas troesophageal reflux disease without esophagitis Take 1 tablet (40 mg) by mouth daily 90 tablet 3 06/14/2022 05/12/2023 risperiDONE (RISPERDAL M-TABS) 0.[address] 0.5 mg under the tongue every morning 0 08/01/2023 rosuvastatin (CRESTOR) 40 MG tabletIndications:Hyp ertriglyceridemia,Hyp erlipidemia LDL goal <100 Take 1 tablet (40 mg) by mouth daily 90 tablet 3 06/14/2022 05/12/2023 documented as of this encounter Plan of Treatment Upcoming Encounters Date Type Department Care Team (Late st Contact Info) Description 08/18/2023 3:00 PM DIRECTOR GLOBAL MEDICAL AFFAIRS Office Visit [facility] [address] [place] [address] Katiana Read MD [address] [place] [address] documented as of this encounter Procedures Procedure Name Priority Date/Time Associated Diagnosis Comments ECHO COMPLETE WITH CONTRAST Routine 12/17/2022 3:51 PM CDT Abnormal electrocardiogram documented in this encounter Results * ECHO COMPLETE WITH CONTRAST (12/17/2022 3:51 PM CDT) LVEF 60-65% CARDIOLOGY RESULTS Anatomical Region Laterality Modality Echocardiography 12/17/2022 3:18 PM CDT Narrative 12/17/2022 4:47 PM CDT [id number]^TORRES^DYAN^ULISES [facility] Echocardiography Laboratory [address] [place] [address] Name: KADEN GRIFFIN : 1960 Study Date: 12/17/2022 03:18 PM Age: 62 yrs Gender: Female Patient Location: [facility] Reason For Study: Abnormal electrocardiogram Ordering Physician: DYAN FUENTES Referring Physician: DYAN FUENTES Performed By: Nguyen Castro BSA: 2.2 m2 Height: 68 in Weight: 228 lb HR: 90 Procedure Complete Echo Adult. [place] ([facility] #[id number]) given intravenously. Interpretation Summary There is mild concentric left ventricular hypertrophy. The visual ejection fraction is 60-65%. The right ventricle is normal in structure, function and size. There is mild mitral annular calcification. Borderline aortic root dilatation. The ascending aorta is Borderline dilated. Technically difficult, suboptimal study. Left Ventricle The left ventricle is normal in size. There is mild concentric left ventricular hypertrophy. Left ventricular systolic function is normal. The visual ejection fraction is 60-65%. Diastolic Doppler findings (E/E' ratio and/or other parameters) suggest left ventricular filling pressures are normal. Right Ventricle The right ventricle is normal in structure, function and size. Atria Normal left atrial size. Right atrial size is normal. There is no color Doppler evidence of an atrial shunt. Mitral Valve There is mild mitral annular calcification. There is no mitral regurgitation noted. Tricuspid Valve The tricuspid valve is normal in structure and function. Aortic Valve The aortic valve is normal in structure and function. Pulmonic Valve The pulmonic valve is not well seen, but is grossly normal. Vessels Borderline aortic root dilatation. The ascending aorta is Borderline dilated. Pericardium There is no pericardial effusion. Rhythm Sinus rhythm was noted. MMode/2D Measurements & Calculations IVSd: 1.2 cm LVIDd: 4.2 cm LVIDs: 3.1 cm LVPWd: 1.3 cm IVC diam: 1.6 cm FS: 26.2 % LV mass(C)d: 181.4 grams LV mass(C)dI: 84.0 grams/m2 Ao root diam: 3.8 cm LA dimension: 3.9 cm asc Aorta Diam: 3.7 cm LA/Ao: 1.0 LVOT diam: 2.4 cm LVOT area: 4.5 cm2 LA Volume (BP): 55.1 ml LA Volume Index (BP): 25.5 ml/m2 RV Base: 3.6 cm RWT: 0.60 TAPSE: 1.8 cm Doppler Measurements & Calculations MV E max dane: 72.3 cm/sec MV A max dane: 80.2 cm/sec MV E/A: 0.90 MV max P.8 mmHg MV mean P.0 mmHg MV V2 VTI: 22.4 cm MVA(VTI): 5.2 cm2 MV P1/2t max dane: 99.5 cm/sec MV P1/2t: 62.0 msec MVA(P1/2t): 3.5 cm2 MV dec slope: 470.0 cm/sec2 MV dec time: 0.20 sec Ao V2 max: 144.0 cm/sec Ao max P.0 mmHg Ao V2 mean: 102.0 cm/sec Ao mean P.0 mmHg Ao V2 VTI: 26.5 cm AMALIA(I,D): 4.4 cm2 AMALIA(V,D): 4.2 cm2 LV V1 max P.1 mmHg LV V1 max: 133.0 cm/sec LV V1 VTI: 25.9 cm SV(LVOT): 117.2 ml SI(LVOT): 54.2 ml/m2 PA V2 max: 107.0 cm/sec PA max P.6 mmHg PA mean P.0 mmHg PA V2 VTI: 21.1 cm PA acc time: 0.18 sec AV Dane Ratio (DI): 0.92 AMALIA Index (cm2/m2): 2.0 E/E' av.7 Lateral E/e': 7.2 Medial E/e': 8.1 RV S Dane: 10.3 cm/sec Report approved by: Carlos Yun 12/17/2022 04:47 PM Procedure Note Nilo Light MD - 12/17/2022 [id number]^TORRES^DYAN^[facility] Echocardiography Laboratory [address] [place] [id number] Name: ROB HERNANDEZKADEN NOBLE : 1960 Study Date: 12/17/2022 03:18 PM Age: 62 yrs Gender: Female Patient Location: [facility] Reason For Study: Abnormal electrocardiogram Ordering Physician: DYAN FUENTES Referring Physician: DYAN FUENTES Performed By: Nguyen Castro BSA: 2.2 m2 Height: 68 in Weight: 228 lb HR: 90 Procedure Complete Echo Adult. Optison ([facility] #[id number]) given intravenously. Interpretation Summary There is mild concentric left ventricular hypertrophy. The visual ejection fraction is 60-65%. The right ventricle is normal in structure, function and size. There is mild mitral annular calcification. Borderline aortic root dilatation. The ascending aorta is Borderline dilated. Technically difficult, suboptimal study. Left Ventricle The left ventricle is normal in size. There is mild concentric left ventricular hypertrophy. Left ventricular systolic function is normal.The visual ejection fraction is 60-65%. Diastolic Doppler findings (E/E'ratio and/or other parameters) suggest left ventricular filling pressures are normal. Right Ventricle The right ventricle is normal in structure, function and size. Atria Normal left atrial size. Right atrial size is normal. There is no color Doppler evidence of an atrial shunt. Mitral Valve There is mild mitral annular calcification. There is no mitralregurgitation noted. Tricuspid Valve The tricuspid valve is normal in structure and function. Aortic Valve The aortic valve is normal in structure and function. Pulmonic Valve The pulmonic valve is not well seen, but is grossly normal. Vessels Borderline aortic root dilatation. The ascending aorta is Borderlinedilated. Pericardium There is no pericardial effusion. Rhythm Sinus rhythm was noted. MMode/2D Measurements & Calculations IVSd: 1.2 cm LVIDd: 4.2 cm LVIDs: 3.1 cm LVPWd: 1.3 cm IVC diam: 1.6 cm FS: 26.2 % LV mass(C)d: 181.4 grams LV mass(C)dI: 84.0 grams/m2 Ao root diam: 3.8 cm LA dimension: 3.9 cm asc Aorta Diam: 3.7 cm LA/Ao: 1.0 LVOT diam: 2.4 cm LVOT area: 4.5 cm2 LA Volume (BP): 55.1 ml LA Volume Index (BP): 25.5 ml/m2 RV Base: 3.6 cm RWT: 0.60 TAPSE: 1.8 cm Doppler Measurements & Calculations MV E max dane: 72.3 cm/sec MV A max dane: 80.2 cm/sec MV E/A: 0.90 MV max P.8 mmHg MV mean P.0 mmHg MV V2 VTI: 22.4 cm MVA(VTI): 5.2 cm2 MV P1/2t max dane: 99.5 cm/sec MV P1/2t: 62.0 msec MVA(P1/2t): 3.5 cm2 MV dec slope: 470.0 cm/sec2 MV dec time: 0.20 sec Ao V2 max: 144.0 cm/sec Ao max P.0 mmHg Ao V2 mean: 102.0 cm/sec Ao mean P.0 mmHg Ao V2 VTI: 26.5 cm AMALIA(I,D): 4.4 cm2 AMALIA(V,D): 4.2 cm2 LV V1 max P.1 mmHg LV V1 max: 133.0 cm/sec LV V1 VTI: 25.9 cm SV(LVOT): 117.2 ml SI(LVOT): 54.2 ml/m2 PA V2 max: 107.0 cm/sec PA max P.6 mmHg PA mean P.0 mmHg PA V2 VTI: 21.1 cm PA acc time: 0.18 sec AV Dane Ratio (DI): 0.92 AMALIA Index (cm2/m2): 2.0 E/E' av.7 Lateral E/e': 7.2 Medial E/e': 8.1 RV S Dane: 10.3 cm/sec Report approved by: Carlos Yun 12/17/2022 04:47 PM Dyan Fuentes MD CV ECHO ORDERABLE S documented in this encounter Visit Diagnoses Diagnosis Abnormal electrocardiogram Nonspecific abnormal electrocardiogram (ECG) (EKG) Chronic diastolic congestive heart failure (H) Chronic diastolic heart failure documented in this encounter Administered Medications Inactive Administered Medications - up to 3 most recent administrations Medication Order MAR Action Action Date Dose Rate Site perflutren diluted 1mL to 2mL with saline (OPTISON) diluted injection 3 mL 3 mL, Intravenous, ONCE, On Tue12/17/22 at 1600, For 1 dose $Given 12/17/2022 3:52 PM CDT 3 mLs sodium chloride (PF) 0.9% PF flush 10 mL 10 mL, Intracatheter, ONCE, On Tue12/17/22 at 1600, For 1 dose $Given 12/17/2022 3:52 PM CDT 10 mLs documented in this encounter Additional Health Concerns Assessment Noted Time PHQ-9 Depression Total Score: 10 023 8:26 AM CDT documented as of this encounter Care Teams Inspector Brake Lining Relationship Specialty [place] [address] [place] [address] PCP - General Family Medicine 05/18/22 Jovany Gonzalez MD [facility] [address] [facility] [address] [place] [address] Orthopedics 02/15/17 Staci Woodward, CANE PACKER [place] [address] [place], [place] [address] Nurse Practitioner Nurse Practitioner Psych/Mental Health 05/10/17 Reanna Smith, RD [place] [address] [place], [place] [id number] Ships Or Barges Loader Dietitian, Registered 07/25/19 Roshni Nascimento, RN Personal Advocate & Liaison (PAL) Family Medicine 08/18/20 Kiet wSain MD [address] [place] [address] [id number] Referring Physician Psychiatry 09/19/20 Winsome Pike APRN WAGON DRILL OPERATOR [address] [address] Nurse Practitioner Psychiatry 09/19/20 Tori Hines, [facility] [address] [place] [address] Car Mover Car Mover - Clinical 09/19/20 Miranda Queen [facility] [address] [place] [address] Pharmacist Pharmacist 11/12/20 Marisel Armando MD [address] [place] [address] Gastroenterology 02/05/21 Marisel Armando MD [address] [place] [address] Assigned Gastroenterology Provider 03/08/21 12/24/22 Wesley Barrett MD [address] [place] [address] [address] [place] [address] Assigned Neuroscience Provider 05/10/21 [place] [address] [place] [address] Assigned PCP 05/15/22 Katiana Read MD [address] [place] [address] [address] [place] [address] Assigned Endocrinology Provider 06/19/22 [place] [address] [place] [address] Assigned Behavioral Health Provider 07/03/22 12/31/22 [place] [address] [place] [address] Nurse Practitioner Nurse Practitioner 10/18/22 Elham Stack, [facility] [address] [place] [address] Pharmacist Pharmacist 10/19/22 Michelle Guzman DPM, Podiatry/Foot and Ankle Surgery [address] [place] [facility] [place] [address] Assigned Musculoskeletal Provider 10/16/22 04/08/23 [place] [address] [place] [address] Assigned Pain Medication Provider 12/04/22 04/01/23 documented as of this encounter
--- OUTSIDE RECORDS SUMMARY | 2023-08-03 09:59 | XMS_ITS | Encounter Summary ---
Author Name Unknown Organization [facility] Address [address] [place] [address]. [place] [address] Care Team Providers Care Hardware Designer Name Role Phone Jovany Gonzalez MD Unavailable [phone] CrissyStaci jeong ESTIMATOR AND DRAFTER SUPERVISOR Unavailable Reanna Smith RD Unavailable Roshni Nascimento RN Unavailable Unavailable Kiet Swain MD Unavailable Winsome Pike APRN TIN ROOFER Unavailable [phone] Tori Hines [facility] Unavailable Miranda Queen [facility] Unavailable Unavailable Marisel Armando MD Unavailable Marisel Armando MD Unavailable Wesley Barrett MD Unavailable [phone] Dyan Fuentes MD Primary Care Provider [phone] Dyan Fuentes MD Unavailable [phone] Katiana Read MD Unavailable [phone] Meme Singleton PhD Unavailable [phone] Mary Del Cid ESTIMATOR AND DRAFTER SUPERVISOR Unavailable [phone] Elham Stack [facility] Unavailable [phone] Michelle GuzmanM, Podiatry /Foot and Ankle Surgery Unavailable Dyan Fuentes MD Unavailable [phone] Reason for Visit * Reason Onset Date Comments Referral 12/15/2022 Encounter Details Date Type Department Care Team (Late st Contact Info) Description 12/15/2022 Telephone [facility] [address] [place] [address] [place] [address] [place] [address] Referral Social History Tobacco Use Types Packs/Day Years [...] often do you attend chur ch or orthodoxy services? 1 to 4 times per year 10/16/2021 Do you belong to any clubs o r organizations such as spiritism groups, unions, fraternal or athletic groups, or [...] Answer Date Recorded PHQ-2 Score 2 11/25/2022 [facility] - Occupational [...] place to sleep or slept in a fpc (including now)? No 10/16/2021 Education Answer Date [...] suspected to have Coronavirus/COVID-19? No / Unsure 12/03/2022 9:25 AM CDT documented as of this encounter Miscellaneous Notes * Telephone Encounter - Andrew Siddiqui - 12/15/2022 9:39 AM CDT MTM referral from: Transitions of Care (recent hospital discharge or ED visit) MTM referral outreach attempt #2 on December 15, 2022 at 9:39 AM Outcome: Patient not reachable after several attempts, will route to [facility] Pharmacist/Provider as an FYI. [facility] scheduling number is [phone]. Thank you for the referral. Use vb for the carrier/Plan on the flowsheet MARIELY Mckinney hospice bereavement coordinator documented in this encounter Plan of Treatment Upcoming Encounters Date Type Department Care Team (Late st Contact Info) Description 08/18/2023 3:00 PM IRRIGATION TAX ASSESSOR COLLECTOR Office Visit [facility] [address] [place] [address] Katiana Read MD [address] [place] [address] documented as of this encounter Visit Diagnoses Not on filedocumented in this encounter Additional Health Concerns Assessment Noted Time PHQ-9 Depression Total Score: 10 023 8:26 AM CDT documented as of this encounter Care Teams Hardware Designer Relationship Specialty [place] [address] [place] [address] PCP - General Family Medicine 05/18/22 Jovany Gonzalez MD [facility] [address] [facility] [address] [place] [address] Orthopedics 02/15/17 Staci Woodward, ESTIMATOR AND DRAFTER SUPERVISOR [place] [address] [place] [address] Nurse Practitioner Nurse Practitioner Psych/Mental Health 05/10/17 Reanna Smith, RD [place] [address] [place] [address] Nozzle Worker Dietitian, Registered 07/25/19 Roshni Nascimento, RN Personal Advocate & Liaison (PAL) Family Medicine 08/18/20 Kiet Swain MD [address] [place] [address] [address] [place], [place] 78[address] Referring Physician Psychiatry 09/19/20 Winsome Pike APRN TIN ROOFER [facility] [address] [address] Nurse Practitioner Psychiatry 09/19/20 Tori Hines, [facility] [place], [place] [address] Human Resources Coordinator Human Resources Coordinator - Clinical 09/19/20 Miranda Queen [facility] [address] [place] [address] Pharmacist Pharmacist 11/12/20 Marisel Armando MD [address] [place] [address] [id number] Gastroenterology 02/05/21 Marisel Armando MD [address] [place] [address] [id number] Assigned Gastroenterology Provider 03/08/21 12/24/22 Wesley Barrett MD [address] [facility] 96 [place] [address] Assigned Neuroscience Provider 05/10/21 [place] [address] [place] [address] Assigned PCP 05/15/22 Katiana Read MD [address] [place] [address] 200 [place] [address] Assigned Endocrinology Provider 06/19/22 Meme Singleton, PhD [address] [place] [address] Assigned Behavioral Health Provider 07/03/22 12/31/22 [place] [address] [place] [address] Nurse Practitioner Nurse Practitioner 10/18/22 Elham Stack, [facility] [address] [place] [address] Pharmacist Pharmacist 10/19/22 Michelle Guzman, DPM, Podiatry/Foot and Ankle Surgery [address] [place] [address] Assigned Musculoskeletal Provider 10/16/22 04/08/23 [place] [address] [place] [address] Assigned Pain Medication Provider 12/04/22 04/01/23 documented as of this encounter
--- OUTSIDE RECORDS SUMMARY | 2023-08-03 09:59 | XMS_ITS | Encounter Summary ---
Author Name Unknown Organization [facility] Address [address] [place] [address]. [place] [address] Care Team Providers Care Helicopter Pilot Instructor Name Role Phone Jovany Gonzalez MD Unavailable [phone] CrissyStaci jeong MANUFACTURING DEVELOPMENT ENGINEER Unavailable [phone] Unavailable [phone] Roshni Nascimento RN Unavailable Unavailable Kiet Swain MD Unavailable [phone] Winsome Pike APRN MECHATRONICS TECHNICIAN Unavailable [phone] Tori Hines [facility] Unavailable Miranda Queen [facility] Unavailable Unavailable Marisel Armando MD Unavailable Marisel Armando MD Unavailable Wesley Barrett MD Unavailable [phone] Dyan Fuentes MD Primary Care Provider [phone] Dyan Fuentes MD Unavailable [phone] Katiana Read MD Unavailable [phone] Meme Singleton PhD Unavailable [phone] Mary Del Cid MANUFACTURING DEVELOPMENT ENGINEER Unavailable [phone] Elham Stack [facility] Unavailable [phone] Michelle Guzman DPM, Podiatry /Foot and Ankle Surgery Unavailable Dyan Fuentes MD Unavailable [phone] Mary Del Cid NP Unavailable [phone] Aubrey Jones MD Unavailable [phone] Blanquita Morales Unavailable Unavailable Aubrey Jones MD Unavailable [phone] Reason for Visit * Reason Onset Date Comments MyChart Communication 12/15/2022 Encounter Details Date Type Department Care Team (Latest Contact Info) Description 12/15/2022 [facility] [address] [address] Roshni Nascimento RN MyChart Communication Social History Tobacco Use Types [...] week 10/16/2021 How often do you attend [facility] or yarsanism services? 1 to 4 [...] Answer Date Recorded PHQ-2 Score 2 11/25/2022 [facility] - Occupational Stress Questionnaire Answer [...] st Contact Info) Description 08/18/2023 3:00 PM LAN MANAGER Office Visit [facility] [address] [place] [address] [place] [phone] Katiana Read MD [address] [facility] 200 [place], [place] [address] documented as of this encounter Visit Diagnoses Not on filedocumented in this encounter Additional Health Concerns Assessment Noted Time PHQ-9 Depression Total Score: 10 023 8:26 AM CDT documented as of this encounter Care Teams Helicopter Pilot Instructor Relationship Specialty [place] [address] [place] [address] PCP - General Family Medicine 05/18/22 Jovany Gonzalez MD [facility] [address] [facility] 605 [place], [place] [address] Orthopedics 02/15/17 Staci Woodward MANUFACTURING DEVELOPMENT ENGINEER [place] [address] [place] [address] Nurse Practitioner Nurse Practitioner Psych/Mental Health 05/10/[address] [facility] [address] [place] [address] Ob Nurse Dietitian, Registered 07/25/19 Roshni Nascimento, RN Personal Advocate & Liaison (PAL) Family Medicine 08/18/20 Kiet Swain MD [address] [place] [address] [address] [place], [place] [address] Referring Physician Psychiatry 09/19/20 Winsome Pike APRN MECHATRONICS TECHNICIAN [address] [address] Nurse Practitioner Psychiatry 09/19/20 Tori Hines, [facility] [address] [place] [address] [phone] Strategic Procurement Manager Strategic Procurement Manager - Clinical 09/19/20 Miranda Queen [facility] [address] [place] [address] Pharmacist Pharmacist 11/12/20 Marisel Armando MD [address] [place] [address] Gastroenterology 02/05/21 Marisel Armando MD [address] [place] [address] [id number] Assigned Gastroenterology Provider 03/08/21 12/24/22 Wesley Barrett MD [address] [place] [address] 96 [place], [place] 24[address] Assigned Neuroscience Provider 05/10/21 [place] [address] [place], [place] 508[address] Assigned PCP 05/15/22 Katiana Read MD [address] [facility] 200 [place] [address] Assigned Endocrinology Provider 06/19/22 [place] [address] [address] [address] Assigned Behavioral Health Provider 07/03/22 12/31/22 [place] [address] [address] [place] [address] Nurse Practitioner Nurse Practitioner 10/18/22 Elham Stack, [facility] [address] [place] [address] Pharmacist Pharmacist 10/19/22 Michelle Guzman DPM, Podiatry/Foot and Ankle Surgery [address] [place] [address] Assigned Musculoskeletal Provider 10/16/22 04/08/23 [place] [address] [place] [address] Assigned Pain Medication Provider 12/04/22 04/01/23 [place] [address] [address] [address] Nurse Practitioner Nurse Practitioner 01/17/23 01/17/23 Aubrey Jones MD [address] [place] [address] Cardiovascular Disease 03/28/23 Blanquita Morales Ob Nurse Diabetes Education 04/25/23 Aubrey Jones MD [address] [place] [address] Assigned Heart and Vascular Provider 05/07/23 documented as of this encounter
--- OUTSIDE RECORDS SUMMARY | 2023-08-03 09:59 | XMS_ITS | Encounter Summary ---
Author Name Unknown Organization [facility] Address [address] [place] [address]. [place] [address] Care Team Providers Care Spark Plug Tester Name Role Phone Jovany Gonzalez MD Unavailable CrissyStaci jeong GAMING MANAGER Unavailable [phone] Unavailable Roshni Nascimento RN Unavailable Unavailable Kiet Swain MD Unavailable [phone] Winsome Pike APRN MANAGER RESIDENTIAL Unavailable [phone] Tori Hines [facility] Unavailable Miranda Queen [facility] Unavailable Unavailable Marisel Armando MD Unavailable Wesley Barrett MD Unavailable [phone] Dyan Fuentes MD Primary Care Provider [phone] Dyan Fuentes MD Unavailable [phone] Katiana Read MD Unavailable [phone] Meme Singleton PhD Unavailable [phone] Mary Del Cid GAMING MANAGER Unavailable + [phone] Elham Stack [facility] Unavailable [phone] Michelle Guzman DPM, Podiatry /Foot and Ankle Surgery Unavailable Dyan Fuentes MD Unavailable [phone] Reason for Visit * Reason Onset Date Comments Opioid Refill 12/28/2022 Suboxone - spoke with pharmacy, refill is available for dispense today. Patient notified. Encounter Details Date Type Department Care Team (Late st Contact Info) Description 12/28/2022 Telephone [facility] Pain Management [place] [address] [facility] [address] [place], [place] [phone] [place] [address] [place] [address] Opioid Refill (Suboxone - spoke with pharmacy, refill is available for dispense today. Patient notified. ) Social History Tobacco Use Types Packs/Day [...] any clubs o r organizations such as muslim groups, unions, fraternal or athletic groups, or [...] Answer Date Recorded PHQ-2 Score 2 11/25/2022 [facility] - [...] encounter Miscellaneous Notes * Telephone Encounter - Gildardo Yeung - 12/28/2022 10:00 AM CDT spoke with pharmacy, refill is available for dispense today. Patient notified. * Telephone Encounter - Blanquita Perera RN - 12/28/2022 9:26 AM CDT Routed to [facility] to gather required information for opioid refill. Blanquita LEAHY, RN International Banker [facility] Pain Management * Telephone Encounter - Blanquita Salguero - 12/28/2022 9:17 AM CDT [facility] Phone Message May a detailed message be left on voicemail: yes Reason for Call: Medication Refill Request Has the patient contacted the pharmacy for the refill? Yes Name of medication being requested: buprenorphine HCl-naloxone HCl (SUBOXONE) 2- 0.5 MG per film Provider who prescribed the medication: [facility] [employer] [facility] [place], [address] Date medication is needed: by 12/30/22 patient is going out of town Action Taken: Other: Pain Travel Screening: Not Applicable documented in this encounter Plan of Treatment Upcoming Encounters Date Type Department Care Team (Late st Contact Info) Description 08/18/2023 3:00 PM FIRER GLOST KILN Office Visit [facility] [address] [place] [phone] Katiana Read MD [address] [facility] 200 [place], [place] [address] documented as of this encounter Visit Diagnoses Not on filedocumented in this encounter Additional Health Concerns Assessment Noted Time PHQ-9 Depression Total Score: 10 023 8:26 AM CDT documented as of this encounter Care Teams Spark Plug Tester Relationship Specialty [place] [address] [place] [address] PCP - General Family Medicine 05/18/22 Jovany Gonzalez MD [facility] [address] [facility] 605 [place], [place] [address] Orthopedics 02/15/17 Staci Woodward GAMING MANAGER [place] [address] [place], [place] [address] Nurse Practitioner Nurse Practitioner Psych/Mental Health 05/10/17 Reanna Smith, RD [place] [address] [place], [place] [address] Tabulating Supervisor Dietitian, Registered 07/25/19 Roshni Nascimento, RN Personal Advocate & Liaison (PAL) Family Medicine 08/18/20 Kiet Swain MD 24[address] [facility]15 [place], [place] [address] Referring Physician Psychiatry 09/19/20 Winsome Pike APRN MANAGER RESIDENTIAL [address] [place] [address] Nurse Practitioner Psychiatry 09/19/20 Tori Hines [facility] [address] [place], [place] [address] Data Operations Director Data Operations Director - Clinical 09/19/20 Miranda Queen [facility] [address] [place] [address] Pharmacist Pharmacist 11/12/20 Marisel Armando MD [address]09 [place], [place] [address] Gastroenterology 02/05/21 Wesley Barrett MD 420 [facility] 96 [place], [place] [address] Assigned Neuroscience Provider 05/10/21 [place] [address] [place] [address] Assigned PCP 05/15/22 Katiana Read MD [address] [facility] 200 [place], [place] [address] Assigned Endocrinology Provider 06/19/22 [place] PhD [address] [place] [address] Assigned Behavioral Health Provider 07/03/22 12/31/22 Mary Del Cid, RAFAEL [address] [place] [address] Nurse Practitioner Nurse Practitioner 10/18/22 Elham Stack, [facility] [address] [place] [address] Pharmacist Pharmacist 10/19/22 Michelle Guzman DPM, Podiatry/Foot and Ankle Surgery [address] [place] [address] Assigned Musculoskeletal Provider 10/16/22 04/08/23 [place] [address] [place] [address] Assigned Pain Medication Provider 12/04/22 04/01/23 documented as of this encounter
--- OUTSIDE RECORDS SUMMARY | 2023-08-03 09:59 | XMS_ITS | Encounter Summary ---
Author Name Unknown Organization [facility] Address [address] [place] [address]. [place] [address] Care Team Providers Care Supervisor Paint Roller Covers Name Role Phone Jovany Gonzalez MD Unavailable CrissyStaci jeong NP Unavailable [phone] Unavailable Roshni Nascimento RN Unavailable Unavailable Kiet Swain MD Unavailable [phone] Winsome Pike APRN PHYSICIAN EXECUTIVE Unavailable [phone] Tori Hines [facility] Unavailable Miranda Queen [facility] Unavailable Unavailable Marisel Armando MD Unavailable Wesley Barrett MD Unavailable [phone] Dyan Fuentes MD Primary Care Provider [phone] Dyan Fuentes MD Unavailable [phone] Katiana Read MD Unavailable [phone] Mary Del Cid LABORER DRYING DEPARTMENT Unavailable [phone] Elham Stack [facility] Unavailable [phone] Michelle Guzman DPM, Podiatry /Foot and Ankle Surgery Unavailable Dyan Fuentes MD Unavailable Reason for Visit * Reason Comments Pain Encounter Details Date Type Department Care Team (Late st Contact Info) Description 02/14/2023 2:00 PM CDT Office Visit [facility] [place] [address] [place] [address] [place] [address] [place] [address] Chronic pain syndrome; Muscle spasm Social History Tobacco Use Types [...] often do you attend chur ch or jew services? 1 to 4 times per year [...] Answer Date Recorded PHQ-2 Score 2 11/25/2022 [facility] [place] of Occupat ional Health - Occupational Stress [...] place to sleep or slept in a chcf (including now)? No 10/16/2021 Education Answer Date [...] Sign Reading Time Taken Comments Blood Pressure 128/84 02/14/2023 2:01 PM CDT Pulse 70 02/14/2023 2:01 PM CDT Temperature - - Respiratory Rate - - Oxygen Saturation 94% 02/14/2023 2:01 PM CDT Inhaled Oxygen Concentration - - Weight - - Height - - Body Mass Index - - documented in this encounter Patient Instructions * Patient Instructions* Mary Del Cid NP - 02/14/2023 2:00 PM CDT Suboxone increased up to 2/1 mg four times per day. May refill every 30 days. May fill 02/20/23 and start 02/23/23. Follow up scheduled for 3 months from now. Scheduling/Clinic telephone number for ALL locations: [phone] After Hours On-Call Service for Emergencies: [phone] Call with any questions about your care and for scheduling assistance. Calls are returned Tuesday through Tuesday between 8 AM and 4:00 PM. We usually get back to you within 2-3 business days depending on the issue/request. I am not in the clinic on Fridays. If we are prescribing your medications: For medication refills, call the clinic or send a CGTrader message 7 days in advance. Please includethe name of the requested medication and your preferred pharmacy. Please allow 3-4 days to be processed. Per [place] State Law, all controlled substance prescriptions must [...] Notes * Mary Del Cid NP - 02/14/2023 2:00 PM CDT Images from the original note were not included. [facility] Date of Visit: 02/14/2023 Last visit: 11/11/2022 Original Consult: 12/09/2020 (Greg) Kaila Hernandez is [...] hematoma with Dr. Mayo on 08/20/2020 at [facility]. Mental Health - the patient's mental health concerns, specifically ANTHONY, affect her experience of pain and contribute to her clinically significant distress. Since last seen, Kaila reports: - [place], and her son had a major heart attack (his second). He is 41 yearsold, lives at home with Kaila along with his . The police notified Kaila that his bedroom was filled with pop bottles of urine and used heroin syringes. He went from the hospital to treatment. She was distraught to learn that he had been using for 3 years. He is reporting childhood trauma, Kaila reports that he is still fairly delusional and she has been hurt that he is reporting this as she feels that this is false. The bedroom was condemned and she had to pay $7000 to have the room cleaned out. - TSH level continues to improve; now 22, down from 290 last year. - Went through a smoking cessation program, however when she found out about her son, she and her both resumed smoking. Almost started drinking to cope, but was able to abstain. Feels proud of this. - Lower back is feeling about the same, so is her neck. Buprenorphine has been working well. Typically takes it three times per day along with Robaxin 1000 mg TID prn. Uses 1-2 vapes of medical cannabis per day with good control of symptoms. Would like to go up to QID dosing if possible. - She [facility], has found this helpful and feels that this is the best she has ever felt. She and her started to go to [facility] for family support. Pain description: Location: neck and lower back Quality: sharp, electrical at times Duration: comes and goes Severity/Intensity: 6/10 on average Aggravating factors include: twisting, bending, movement Relieving factors include: Rest, stretches, medications, these seem to work well and I do not needto do much more than that. Current pain medications: Suboxone 2mg film TID Robaxin 500-1000mg typically takes BID or TID Medical cannabis (THC dominant vapor and CBD cream) I don't like feeling stoned Other relevant medications: Pristiq 100mg daily for mood Seroquel 100mg at bedtime and 25mg TID prn Clonazepam 0.5mg BID prn Review of [place] Prescription Monitoring Program (FIRST LINE PRODUCTION SUPERVISOR): No concern for abuse or misuse of controlled medications based on this report. Viewed on 02/14/2023 Controlled medications (buprenorphine) are being prescribed by me Controlled medications (clonazepam) are being prescribed by: [place] Current calculated MME: N/A CSA last updated: 11/11/2022 Serum (blood) drug [...] Somewhat helpful; none in the past 5 years 3. PAIN PSYCHOLOGY: yes with Dr. Benites several years ago -helpful, currently treating with [facility] 4. SURGERY: lumbar laminectomy L4-S1 with Dr. Barrett on 11/10/2021 C5-[address] Barrett on 05/18/[address] Mayo on 08/06/2020 and right hip irrigation, debridement, and evacuation of hematoma with Dr. Mayo on 08/20/2020 at [facility] cervical fusion 2003 L5-S1 hemilaminectomy 2004 5. INJECTIONS: several, most [...] her children's lives. One son lives in [place], others are local. One son (disabled from long covid/ substance use disorder) and his live with her. 5 grandchildren, 18 (boy), 16 (girl) and 3 are 5 (twin girls + girl who is three days apart from the twins). For fun, enjoys video games, crossword puzzles, being on facebook. Last updated 02/14/2023 Medications and Allergies reviewed. OBJECTIVE Vitals: 02/14/23 1401 BP: 128/84 BP Location: Right arm Cuff Size: Adult Large Pulse: 70 SpO2: 94% Constitutional: Well developed, well nourished, appears stated [...] ROM, normal spinal curvature. ASSESSMENT AND PLAN: 1. Chronic pain syndrome Continue current medications, okay to increase suboxone to 8 mg per day. Refills provided for next three months. Follow up in 3 months. - buprenorphine HCl-naloxone HCl (SUBOXONE) 2-0.5 MG per film; Place 1 Film under the tongue 4 times daily May refill every 30 days. Fill 02/20/23 and start 02/23/23 Dispense: 120 Film; Refill: 2 2. Muscle spasm Continue, refilled. - methocarbamol (ROBAXIN) 500 MG tablet; Take 2 tablets (1,000 mg) by mouth 4 times daily Dispense:150 tablet; Refill: 2 Mary Del Cid, PHYSICIAN EXECUTIVE-BC, PMGT-BC, AP-PMN [facility] documented in this encounter Plan of Treatment Upcoming Encounters Date Type Department Care Team (Late st Contact Info) Description 08/18/2023 3:00 PM PARCEL POST ORDER CLERK Office Visit [facility] [address] [place] [address] Katiana Read MD [address] [place] [address] documented as of this encounter Visit Diagnoses Diagnosis Chronic pain syndrome Muscle spasm Spasm of muscle documented in this encounter Additional Health Concerns Assessment Noted Time PHQ-9 Depression Total Score: 10 023 8:26 AM CDT documented as of this encounter Care Teams Supervisor Paint Roller Covers Relationship Specialty [place] [address] [place] [address] PCP - General Family Medicine 05/18/22 Jovany Gonzalez MD [facility] [address] [facility] [address] [place], [place] [id number] Orthopedics 02/15/17 Staci Woodward, LABORER DRYING DEPARTMENT [place] [address] [place], [place] [address] Nurse Practitioner Nurse Practitioner Psych/Mental Health 05/10/17 Reanna Smith, RD [place] [address] [place], [place] 3[address] Electrical Tests Supervisor Dietitian, Registered 07/25/19 Roshni Nascimento, RN Personal Advocate & Liaison (PAL) Family Medicine 08/18/20 Kiet Swain MD [address] [place] [address] [id number] Referring Physician Psychiatry 09/19/20 Winsome Pike APRN PHYSICIAN EXECUTIVE [address] [place] [address] [id number] Nurse Practitioner Psychiatry 09/19/20 Tori Hines, [facility] [address] [place] [address] [phone] Aws Developer Aws Developer - Clinical 09/19/20 Miranda Queen [facility] [address] [place] [address] Pharmacist Pharmacist 11/12/20 Marisel Armando MD [address] [place], [place] 240[address] Gastroenterology 02/05/21 Wesley Barrett MD [address] [facility] [address] [place] [address] Assigned Neuroscience Provider 05/10/21 [place] [address] [place] [address] Assigned PCP 05/15/22 Katiana Read MD [address] [place] [address] [address] [place], [place] 8[address] Assigned Endocrinology Provider 06/19/22 [place] [address] [place] [address] Nurse Practitioner Nurse Practitioner 10/18/22 Elham Stack, [facility] [address] [place] [address] Pharmacist Pharmacist 10/19/22 Michelle Guzman DPM, Podiatry/Foot and Ankle Surgery [address] [facility] [address] [place], [place] 3248[address] Assigned Musculoskeletal Provider 10/16/22 04/08/23 [place] [address] [place] [address] Assigned Pain Medication Provider 12/04/22 04/01/23 documented as of this encounter
--- OUTSIDE RECORDS SUMMARY | 2023-08-03 09:59 | XMS_ITS | Encounter Summary ---
Author Name Unknown Organization [facility] Address [address] [place] [address]. [place] [address] Care Team Providers Care Automatic Splicing Machine Operator Name Role Phone Jovany Gonzalez MD Unavailable CrissyStaci jeong ENVIRONMENTAL TECHNOLOGY PROFESSOR Unavailable [phone] Unavailable [phone] Roshni Nascimento RN Unavailable Unavailable Kiet Swain MD Unavailable [phone] Winsome Pike APRN CASING MAN Unavailable [phone] Tori Hines [facility] Unavailable Miranda Queen [facility] Unavailable Unavailable Marisel Armando MD Unavailable Marisel Armando MD Unavailable Wesley Barrett MD Unavailable [phone] Dyan Fuentes MD Primary Care Provider [phone] Dyan Fuentes MD Unavailable [phone] Katiana Read MD Unavailable [phone] Meme Singleton PhD Unavailable [phone] Mary Del Cid ENVIRONMENTAL TECHNOLOGY PROFESSOR Unavailable [phone] Elham Stack [facility] Unavailable [phone] Michelle Guzman DPM, Podiatry /Foot and Ankle Surgery Unavailable Dyan Fuentes MD Unavailable [phone] Encounter Details Date Type Department Care Team (Latest Contact Info) Description 12/17/2022 Travel Social History Tobacco Use Types Packs/Day [...] week 10/16/2021 How often do you attend [facility] or church services? 1 to 4 times per year 10/16/2021 Do you belong to any clubs o r organizations such as baptism groups, unions, fraternal or athletic groups, or [...] Recorded PHQ-2 Score 2 11/25/2022 [facility] [place] of Occupat ional Health - Occupational Stress [...] health care facility (including now)? No 10/16/2021 Education Answer Date [...] st Contact Info) Description 08/18/2023 3:00 PM NEWS CAMERA PERSON Office Visit [place] [address] [place] [address] Katiana Read MD [address] [place] [address] documented as of this encounter Visit Diagnoses Not on filedocumented in this encounter Additional Health Concerns Assessment Noted Time PHQ-9 Depression Total Score: 10 023 8:26 AM CDT documented as of this encounter Care Teams Automatic Splicing Machine Operator Relationship Specialty [place] [address] [place] [address] PCP - General Family Medicine 05/18/22 Jovany Gonzalez MD [facility] [address] [facility] [address] [place] [address] Orthopedics 02/15/17 Staci Woodward, ENVIRONMENTAL TECHNOLOGY PROFESSOR [place] [address] [place] [address] Nurse Practitioner Nurse Practitioner Psych/Mental Health 05/10/17 Reanna Smith, RD [place] [address] [place] [address] Turbinated Bone Grinder Dietitian, Registered 07/25/19 Roshni Nascimento, RN Personal Advocate & Liaison (PAL) Family Medicine 08/18/20 Kiet Swain MD [address] [facility] [address] [place] [address] Referring Physician Psychiatry 09/19/20 Winsome Pike APRN CASING MAN [address] [place], [place] [address] Nurse Practitioner Psychiatry 09/19/20 Tori Hines [facility] [address] [place], [place] [address]65[address] Air Motor Repairer Air Motor Repairer - Clinical 09/19/20 Miranda Queen [facility] [address] [place] [address] Pharmacist Pharmacist 11/12/20 Marisel Armando MD [address] [place] [address] [id number] Gastroenterology 02/05/21 Marisel Armando MD [address] [place] [address] 115695 Assigned Gastroenterology Provider 03/08/21 12/24/22 Wesley Barrett MD [address] [place] [address] Assigned Neuroscience Provider 05/10/21 [place] [address] [place] [address] Assigned PCP 05/15/22 Katiana Read MD [address] [place] [address] [id number] Assigned Endocrinology Provider 06/19/22 Meme Singleton[place] PhD [address] [place] [address] Assigned Behavioral Health Provider 07/03/22 12/31/22 [place] [address] [place] [address] Nurse Practitioner Nurse Practitioner 10/18/22 Elham Stack, [facility] [address] [place] [address] Pharmacist Pharmacist 10/19/22 Michelle Guzman, DPM, Podiatry/Foot and Ankle Surgery [address] [place] [address] Assigned Musculoskeletal Provider 10/16/22 04/08/23 [place] [address] [place] [address] Assigned Pain Medication Provider 12/04/22 04/01/23 documented as of this encounter
--- OUTSIDE RECORDS SUMMARY | 2023-08-03 09:59 | XMS_ITS | Encounter Summary ---
Author Name Unknown Organization [facility] Address [address] [place] [address]. [place] [address] Care Team Providers Care Central Processing Tech Name Role Phone Jovany Gonzalez MD Unavailable CrissyStaci jeong [facility] BRAKEMAN Unavailable [phone] Unavailable [phone] Roshni Nascimento RN Unavailable Unavailable Kiet Swain MD Unavailable [phone] Winsome Pike APRN KIDS CLUB ATTENDANT Unavailable [phone] Tori Hines [facility] Unavailable Miranda Queen [facility] Unavailable Unavailable Marisel Armando MD Unavailable Wesley Barrett MD Unavailable [phone] Dyan Fuentes MD Primary Care Provider [phone] Dyan Fuentes MD Unavailable [phone] Katiana Read MD Unavailable [phone] Meme Singleton PhD Unavailable [phone] Mary Del Cid DINKEY BRAKEMAN Unavailable [phone] Elham Stack [facility] Unavailable [phone] Michelle Guzman DPM, Podiatry /Foot and Ankle Surgery Unavailable Dyan Fuentes MD Unavailable Encounter Details Date Type Department Care Team (Latest Contact Info) Description 12/30/2022 Travel Social History Tobacco Use Types Packs/Day [...] often do you attend chur ch or yazdanism services? 1 to 4 times per year [...] Answer Date Recorded PHQ-2 Score 2 11/25/2022 [facility] [place] of Occupat ional Health - Occupational Stress [...] place to sleep or slept in a retirement (including now)? No 10/16/2021 Education Answer Date [...] st Contact Info) Description 08/18/2023 3:00 PM BUSINESS SERVICES DIRECTOR Office Visit [facility] [address] [place] [address] Katiana Read MD [address] [facility] [address] [place] [address] documented as of this encounter Visit Diagnoses Not on filedocumented in this encounter Additional Health Concerns Assessment Noted Time PHQ-9 Depression Total Score: 10 023 8:26 AM CDT documented as of this encounter Care Teams Central Processing Tech Relationship Specialty [place] [address] [place] [address] PCP - General Family Medicine 05/18/22 Jovany Gonzalez MD [facility] [address] [facility] [address] [place], [place] [address] Orthopedics 02/15/17 Staci Woodward DINKEY BRAKEMAN [place] [address] [place] [address] Nurse Practitioner Nurse Practitioner Psych/Mental Health 05/10/17 Reanna Smith, RD [place] [address] [place] [address] Supervisor Public Health Nursing Dietitian, Registered 07/25/19 Roshni Nascimento, RN Personal Advocate & Liaison (PAL) Family Medicine 08/18/20 Kiet Swain MD [address] [facility] [place] [address] Referring Physician Psychiatry 09/19/20 Winsome Pike APRN KIDS CLUB ATTENDANT [address] [place] [address] 025514 Nurse Practitioner Psychiatry 09/19/20 Tori Hines [facility] [address] [place], [place] 0050[address] Pit Shovel Operator Pit Shovel Operator - Clinical 09/19/20 Miranda Queen [facility] [address] [place] [address] Pharmacist Pharmacist 11/12/20 Marisel Armando MD 9[address] [place], [place] [address] Gastroenterology 02/05/21 Wesley Barrett MD [address] [facility] [address] [place], [place] [address] Assigned Neuroscience Provider 05/10/21 [place] [address] [place] [address] Assigned PCP 05/15/22 Katiana Read MD [address] [facility] [address] [place], [place] [address] Assigned Endocrinology Provider 06/19/22 Meme [place] PhD [address] [place] [address] Assigned Behavioral Health Provider 07/03/22 12/31/22 Mary Del Cid, [place] [address] [place] [address] Nurse Practitioner Nurse Practitioner 10/18/22 Elham Stack [facility] [address] [place] [address] Pharmacist Pharmacist 10/19/22 Michelle Guzman, ERIC, Podiatry/Foot and Ankle Surgery [address] [place] [address] Assigned Musculoskeletal Provider 10/16/22 04/08/23 [place] [address] [place] [address] Assigned Pain Medication Provider 12/04/22 04/01/23 documented as of this encounter
--- OUTSIDE RECORDS SUMMARY | 2023-08-03 09:59 | XMS_ITS | Encounter Summary ---
Author Name Unknown Organization [facility] Address [address] [place] [address]. [place] [address] Care Team Providers Care Beater Lead Name Role Phone Jovany Gonzalez MD Unavailable CrissyStaci jeong NP Unavailable [phone] Unavailable Roshni Nascimento RN Unavailable Unavailable Kiet Swain MD Unavailable [phone] Winsome Pike APRN QUILL WINDER Unavailable [phone] Tori Hines [facility] Unavailable Miranda Queen [facility] Unavailable Unavailable Mariesl Armando MD Unavailable Wesley Barrett MD Unavailable [phone] Dyan Fuentes MD Primary Care Provider [phone] Dyan Fuentes MD Unavailable [phone] Katiana Read MD Unavailable [phone] Mary Del Cid PAINTER BARREL Unavailable [phone] [facility] Unavailable [phone] Michelle Guzman DPM, Podiatry /Foot and Ankle Surgery Unavailable Dyan Fuentes MD Unavailable Reason for Visit * Reason Onset Date Comments Opioid Refill 01/27/2023 buprenorphine HC l-naloxone HCl (SUBOXONE) 2-0.5 MG per film Encounter Details Date Type Department Care Team (Late st Contact Info) Description 01/27/2023 Refill [facility] [place] [address] [facility] [address] [place], [place] [address] [place] [address] [place] [id number] Opioid Refill (buprenorphine HCl-naloxone HCl (SUBOXONE) 2-0.5 MG per film) Social History Tobacco Use [...] often do you attend chur ch or sabianist services? 1 to 4 times per year 10/16/2021 Do you belong to any clubs o r organizations such as amish groups, unions, fraternal or athletic groups, or [...] Answer Date Recorded PHQ-2 Score 2 11/25/2022 [facility] - [...] place to sleep or slept in a group home (including now)? No 10/16/2021 Education Answer [...] suspected to have Coronavirus/COVID-19? Unable to assess 01/17/2023 12:13 PM CDT documented as of this encounter Miscellaneous Notes * Telephone Encounter - Janine Argueta RN - 01/27/2023 12:21 PM CDT Routing to provider to review medication prepped per below buprenorphine HCl-naloxone HCl (SUBOXONE) 2-0.5 MG per film#90, Refill:2 Sig:Place 1 Film under the tongue 3 times daily. May refill every 30 days. - Sublingual Last picked up 12/28/22 with start on 12/28/22 Due: Fill and start 01/27/23 Per last OV note 11/11/22: Continue current medications. Refills provided for next three months. Follow up in 3 months, can be virtual or in person. Recommend PT refresher course, okay to check with insurance representative first. - buprenorphine HCl-naloxone HCl (SUBOXONE) 2-0.5 MG per film; Place 1 Film under the tongue 3 times daily OK to fill 11/27/22 start 11/29/22. May refill every 30 days. Dispense: 90 Film; Refill: 2 ?? [facility] - [place], [place] - [address] [facility] [address] [facility] [address] Janine Raymundo RN Flask Cleaner [facility] * Telephone Encounter - Gildardo Yeung - 01/27/2023 12:09 PM CDT Received refill request for: buprenorphine HCl-naloxone HCl (SUBOXONE) 2-0.5 MG per film Last dispensed from pharmacy on 12/28/2022. Patient's last office/virtual visit by prescribing provider on 11/11/2022. Next office/virtual appointment scheduled for 02/14/2023. Last urine drug screen date 11/25/2022. Current opioid agreement on file? Yes Date of opioid agreement: 11/12/2022. E-prescribe to: [facility] - [address] Will route to [facility] for review and preparation of prescription(s). * Telephone Encounter - Janine Argueta RN - 01/27/2023 11:59 AM CDT Will route to [facility] for assistance with gathering opioid refill information. Janine Raymundo RN Flask Cleaner [facility] * Telephone Encounter - Misty Monroy - 01/27/2023 11:56 AM CDT [facility] Phone Message May a detailed message be left on voicemail: yes Reason for Call: Medication Refill Request Has the patient contacted the pharmacy for the refill? Yes Name of medication being requested: buprenorphine HCl-naloxone HCl (SUBOXONE) 2- 0.5 MG per film Provider who prescribed the medication: Mary Del Cid NP Pharmacy: [facility] - [address] Date medication is needed: 01/31/2023 Action Taken: Message routed to: Other: [facility] Travel Screening: Not Applicable documented in this encounter Plan of Treatment Upcoming Encounters Date Type Department Care Team (Late st Contact Info) Description 08/18/2023 3:00 PM CLOTH SHRINKER Office Visit [facility] [address] [place] [address] Katiana Read MD [address] [place] [address] documented as of this encounter Visit Diagnoses Diagnosis Chronic pain syndrome documented in this encounter Additional Health Concerns Assessment Noted Time PHQ-9 Depression Total Score: 10 023 8:26 AM CDT documented as of this encounter Care Teams Beater Lead Relationship Specialty [place] [address] [place] [address] PCP - General Family Medicine 05/18/22 Jovany Gonzalez MD [facility] [address] [facility] [address] [place], [place] [address] Orthopedics 02/15/17 Staci Woodward NP [place] [facility] [address] [place] [place], [place] [address] Nurse Practitioner Nurse Practitioner Psych/Mental Health 05/10/17 Reanna Smith, RD [facility] [address] [place], [place] [address] School Vocational Educator Dietitian, Registered 07/25/19 Roshni Nascimento, RN Personal Advocate & Liaison (PAL) Family Medicine 08/18/20 Kiet Swain MD [address] [place], [place] [address] [place], [place] [address] Referring Physician Psychiatry 09/19/20 Winsome Pike APRN QUILL WINDER [address] [address] Nurse Practitioner Psychiatry 09/19/20 Tori Hines, [facility] [address] [place] [address] Underwriting Specialist Underwriting Specialist - Clinical 09/19/[address] [facility] [address] [place] [address] Pharmacist Pharmacist 11/12/20 Marisel Armando MD 909 [place] [address] Gastroenterology 02/05/21 Wesley Barrett MD [address] [facility] [address] [place] [address] Assigned Neuroscience Provider 05/10/21 [place] [address] [place] [address] Assigned PCP 05/15/22 Katiana Read MD [address] [facility] 200 [place], [place] [address] Assigned Endocrinology Provider 06/19/22 [place] [address] [place] [address] Nurse Practitioner Nurse Practitioner 10/18/22 Elham Stack, [facility] [address] [place] [address] Pharmacist Pharmacist 10/19/22 Michelle Guzman DPM, Podiatry/Foot and Ankle Surgery [address] [place] [address] Assigned Musculoskeletal Provider 10/16/22 04/08/23 [place] [address] [place] [address] Assigned Pain Medication Provider 12/04/22 04/01/23 documented as of this encounter
--- OUTSIDE RECORDS SUMMARY | 2023-08-03 09:59 | XMS_ITS | Encounter Summary ---
Author Name Unknown Organization [facility] Address [address] [place] [address]. [place] [address] Care Team Providers Care Ground Service Equipment Mechanic Name Role Phone Jovany Gonzalez MD Unavailable CrissyStaci jeong NP Unavailable [phone] Unavailable [phone] Roshni Nascimento RN Unavailable Unavailable Kiet Swain MD Unavailable [phone] Winsome Pike APRN TROUBLE CLERK Unavailable [phone] Tori Hines [facility] Unavailable Miranda Queen [facility] Unavailable Unavailable Marisel Armando MD Unavailable Wesley Barrett MD Unavailable [phone] Dyan Fuentes MD Primary Care Provider [phone] Dyan Fuentes MD Unavailable [phone] Katiana Read MD Unavailable [phone] Mary Del Cid MEDICARE COMPLIANCE AUDITOR Unavailable [phone] Elham Stack [facility] Unavailable [phone] Michelle Guzman DPM, Podiatry /Foot and Ankle Surgery Unavailable Dyan Fuentes MD Unavailable Mary Del Cid NP Unavailable Encounter Details Date Type Department Care Team (Latest Contact Info) Description 01/17/2023 Travel Social History Tobacco Use Types Packs/Day [...] How often do you attend chur or bahai services? 1 to 4 times per year 10/16/2021 Do you belong to any clubs o r organizations such as taoist groups, unions, fraternal or athletic groups, or [...] Answer Date Recorded PHQ-2 Score 2 11/25/2022 [facility] Occupat [facility] - Occupational Stress [...] Info) Description 08/18/2023 3:00 PM DIRECTOR OF BUSINESS SYSTEMS Office Visit [facility] [address] [place] [address] Katiana Read MD [address] [facility] 200 [place] [address] documented as of this encounter Visit Diagnoses Not on filedocumented in this encounter Additional Health Concerns Assessment Noted Time PHQ-9 Depression Total Score: 10 023 8:26 AM CDT documented as of this encounter Care Teams Ground Service Equipment Mechanic Relationship Specialty [place] [address] [place] [address] PCP - General Family Medicine 05/18/22 Jovany Gonzalez MD [facility] [address] [facility] 605 [place], [place] [address] Orthopedics 02/15/17 Staci Woodward MEDICARE COMPLIANCE AUDITOR [place] [address] [place] [address] Nurse Practitioner Nurse Practitioner Psych/Mental Health 05/10/17 Reanna Smith, RD [place] [facility] [address] [place] [address] Flash Welding Machine Operator Dietitian, Registered 07/25/19 Roshni Nascimento, RN Personal Advocate & Liaison (PAL) Family Medicine 08/18/20 Kiet Swain MD [address] [facility] [place] [address] Referring Physician Psychiatry 09/19/20 Winsome Pike APRN TROUBLE CLERK [address] [place] [address] Nurse Practitioner Psychiatry 09/19/20 Tori Hines [facility] 2450 [place], [place] [address] Executive Services Administrator Executive Services Administrator - Clinical 09/19/20 Miranda Queen [facility] [address] [place] [address] Pharmacist Pharmacist 11/12/20 Marisel Armando MD 909 [place], [place] [address] Gastroenterology 02/05/21 Wesley Barrett MD 420 [facility] 96 [place], [place] [address] Assigned Neuroscience Provider 05/10/21 [place] [address] [place] [address] Assigned PCP 05/15/22 Ktaiana Read MD [address] [facility] 200 [place], [place] [address] Assigned Endocrinology Provider 06/19/22 Mary Del Cid, RAFAEL [address] [place] [address] Nurse Practitioner Nurse Practitioner 10/18/22 Elham Stack, [facility] [address] [place] [address] Pharmacist Pharmacist 10/19/22 Michelle Guzman DPM, Podiatry/Foot and Ankle Surgery [address] [place] [address] Assigned Musculoskeletal Provider 10/16/22 04/08/23 [place] [address] [place] [address] Assigned Pain Medication Provider 12/04/22 04/01/23 [place] [address] [place] [address] Nurse Practitioner Nurse Practitioner 01/17/23 01/17/23 documented as of this encounter
--- OUTSIDE RECORDS SUMMARY | 2023-08-03 10:00 | XMS_ITS | Encounter Summary ---
Author Name Unknown Organization [facility] Address [address] [place] [address]. [place] [address] Care Team Providers Care Digital Imaging Specialist Name Role Phone Jovany Gonzalez MD Unavailable CrissyStaci jeong PIPEFITTER Unavailable [phone] Unavailable Roshni Nascimento RN Unavailable Unavailable Kiet Swain MD Unavailable [phone] Winsome Pike APRN SEALER OPERATOR Unavailable [phone] Tori Hines [facility] Unavailable Miranda Queen [facility] Unavailable Unavailable Marisel Armando MD Unavailable Marisel Armando MD Unavailable Wesley Barrett MD Unavailable [phone] Dyan Fuentes MD Primary Care Provider [phone] Dyan Fuentes MD Unavailable [phone] Katiana Read MD Unavailable [phone] Meme Singleton PhD Unavailable [phone] Mary Del Cid PIPEFITTER Unavailable [phone] Elham Stack [facility] Unavailable [phone] Michelle GuzmanM, Podiatry /Foot and Ankle Surgery Unavailable Dyan Fuentes MD Unavailable [phone] Reason for Visit * Reason Onset Date Comments Outreach 12/13/2022 Encounter Details Date Type Department Care Team (Late st Contact Info) Description 12/13/2022 Telephone [facility] [address] [place] [address] [place] [address] [place] [address] Outreach Social History Tobacco Use Types Packs/Day Years [...] often do you attend chur ch or buddhism services? 1 to 4 times per year [...] 2 11/25/2022 [facility] - [...] Telephone Encounter - Roshni Nascimento RN - 12/17/2022 10:13 AM CDT Letter sent as not response to call's or my chart Roshni Nascimento RN * Telephone Encounter - Roshni Nascimento RN - 12/15/2022 2:00 PM CDT LM for call back Needs IP follow up Follow-up and recommended labs and tests Follow-up with your PCP in 1-2 weeks ?? Roshni Nascimento RN * Telephone Encounter - Roshni Nascimento RN - 12/13/2022 3:10 PM CDT LM for call back after IP discharge Roshni Nascimento RN documented in this encounter Plan of Treatment Upcoming Encounters Date Type Department Care Team (Late st Contact Info) Description 08/18/2023 3:00 PM SOFTWARE DESIGN ENGINEER Office Visit [facility] [address] [place] [address] Katiana Read MD [address] [place] [address] documented as of this encounter Visit Diagnoses Not on filedocumented in this encounter Additional Health Concerns Assessment Noted Time PHQ-9 Depression Total Score: 10 023 8:26 AM CDT documented as of this encounter Care Teams Digital Imaging Specialist Relationship Specialty Start Date End Date Hedtke, [place] [address] [place] [address] PCP - General Family Medicine 05/18/22 Jovany Gonzalez MD [facility] [address] [facility] [address] [place], [place] [address] Orthopedics 02/15/17 Staci Woodward, PIPEFITTER [place] [address] [place], [place] [address] Nurse Practitioner Nurse Practitioner Psych/Mental Health 05/10/17 Reanna Smith, RD [facility] [address] [place], [place] [address] Director Of Retail Marketing Dietitian, Registered 07/25/19 Roshni Nascimento, RN Personal Advocate & Liaison (PAL) Family Medicine 08/18/20 Kiet Swain MD [address] [place] [address] Referring Physician Psychiatry 09/19/20 Winsome Pike APRN SEALER OPERATOR [address] [place] [phone] Nurse Practitioner Psychiatry 09/19/20 Tori Hines [facility] [address] [place] [address] Charge Lpn Charge Lpn - Clinical 09/19/20 Miranda Queen [facility] [address] [place] [address] Pharmacist Pharmacist 11/12/20 Marisel Armando MD 909 [place] [address] Gastroenterology 02/05/21 Marisel Armando MD [address] [place] [address] Assigned Gastroenterology Provider 03/08/21 12/24/22 Wesley Barrett MD 420 [facility] 96 [place], [place] [address] Assigned Neuroscience Provider 05/10/21 [place] [address] [place] [address] Assigned PCP 05/15/22 Katiana Read MD [address] [facility] 200 [place], [place] [address] Assigned Endocrinology Provider 06/19/22 [place] [address] [place] [address] Assigned Behavioral Health Provider 07/03/22 12/31/22 Mary Del Cid, RAFAEL [address] [place] [address] Nurse Practitioner Nurse Practitioner 10/18/22 Elham Stack, [facility] 3033 [place] [address] Pharmacist Pharmacist 10/19/22 Michelle Guzman DPM, Podiatry/Foot and Ankle Surgery [address] [place] [address] Assigned Musculoskeletal Provider 10/16/22 04/08/23 [place] [address] [place] [address] Assigned Pain Medication Provider 12/04/22 04/01/23 documented as of this encounter
--- OUTSIDE RECORDS SUMMARY | 2023-08-03 10:01 | XMS_ITS | Encounter Summary ---
Author Name Unknown Organization [place] Address [address] [place] [address]. [place] [address] Care Team Providers Care Gas Truck Driver Name Role Phone Jovany Gonzalez MD Unavailable [phone] CrissyStaci jeong TELEVISION INSTALLER Unavailable [phone] Unavailable Roshni Nascimento RN Unavailable Unavailable Kiet Swain MD Unavailable [phone] Winsome Pike APRN SUPERVISOR OF COMMUNICATIONS Unavailable [phone] Tori Hines [facility] Unavailable Miranda Queen [facility] Unavailable Unavailable Marisel Armando MD Unavailable Marisel Armando MD Unavailable Wesley Barrett MD Unavailable [phone] Dyan Fuentes MD Primary Care Provider [phone] Dyan Fuentes MD Unavailable [phone] Katiana Read MD Unavailable [phone] Meme Singleton PhD Unavailable [phone] Mary Del Cid TELEVISION INSTALLER Unavailable [phone] Elham Stack [facility] Unavailable [phone] Mary Del Cid TELEVISION INSTALLER Unavailable [phone] Michelle Guzman DPM, Podiatry /Foot and Ankle Surgery Unavailable Encounter Details Date Type Department Care Team (Latest Contact Info) Description 11/25/2022 Travel Social History Tobacco Use Types Packs/Day [...] week 10/16/2021 How often do you attend [facility] or yazidi services? 1 to 4 times [...] Answer Date Recorded PHQ-2 Score 2 11/25/2022 [facility] [place] [facility] Occupat ional Health - Occupational Stress [...] suspected to have Coronavirus/COVID-19? No / Unsure 11/25/2022 8:28 AM CDT documented as of this encounter Plan of Treatment Upcoming Encounters Date Type Department Care Team (Late st Contact Info) Description 08/18/2023 3:00 PM SPEECH THERAPY DIRECTOR Office Visit [facility] [address] [place] [address] Katiana Read MD [address] [place] [address] documented as of this encounter Visit Diagnoses Not on filedocumented in this encounter Additional Health Concerns Infection Onset Date Last Indicated Resolved Time C-difficile 10/15/2022 10/27/2022 11/26/2022 11:4 0 PM CDT Assessment Noted Time PHQ-9 Depression Total Score: 10 023 8:26 AM CDT documented as of this encounter Care Teams Gas Truck Driver Relationship Specialty [place] [address] [place] [address] PCP - General Family Medicine 05/18/22 Jovany Gonzalez MD [facility] [address] [facility] 605 [place], [place] [address] Orthopedics 02/15/17 Staci Woodward TELEVISION INSTALLER [place] [address] [place] [address] Nurse Practitioner Nurse Practitioner Psych/Mental Health 05/10/17 Reanna Smith, RD [place] [address] [place] [address] Director Of Intelligence Dietitian, Registered 07/25/19 Roshni Nascimento, RN Personal Advocate & Liaison (PAL) Family Medicine 08/18/20 Kiet Swain MD [facility]0 [facility]15 [place] [address] Referring Physician Psychiatry 09/19/20 Winsome Pike APRN SUPERVISOR OF COMMUNICATIONS [address] [address] Nurse Practitioner Psychiatry 09/19/20 Tori Hines, [facility] 2450 [place], [place] [address] Cloth Sponger Cloth Sponger - Clinical 09/19/20 Miranda Queen [facility] [address] [place] [address] Pharmacist Pharmacist 11/12/20 Marisel Armando MD 9 [place], [place] [address] Gastroenterology 02/05/21 Marisel Armando MD [address] [place] [address] Assigned Gastroenterology Provider 03/08/21 12/24/22 Wesley Barrett MD 420 [facility] 96 [place], [place] [address] Assigned Neuroscience Provider 05/10/21 [place] [address] [place] [address] Assigned PCP 05/15/22 Katiana Read MD [address] [address] Assigned Endocrinology Provider 06/19/22 [place] [address] [place] [address] Assigned Behavioral Health Provider 07/03/22 12/31/22 Mary Del Cid, RAFAEL [address] [address] Nurse Practitioner Nurse Practitioner 10/18/22 Elham Stack, [facility] [address] [place] [address] Pharmacist Pharmacist 10/19/22 Mary Del Cid, RAFAEL [address] [address] Assigned Pain Medication Provider 10/30/22 12/03/22 Michelle Guzman DPM, Podiatry/Foot and Ankle Surgery [address] [address] Assigned Musculoskeletal Provider 10/16/22 04/08/23 documented as of this encounter
--- OUTSIDE RECORDS SUMMARY | 2023-08-03 10:01 | XMS_ITS | Encounter Summary ---
Author Name Unknown Organization [facility] Address [address] [place] [address]. [place] [address] Care Team Providers Care Blanket Inspector Name Role Phone Jovany Gonzalez MD Unavailable CrissyStaci jeong SULKY DRIVER Unavailable Reanna Smith RD Unavailable Roshni Nascimento RN Unavailable Unavailable Kiet Swain MD Unavailable [phone] Winsome Pike APRN POLISH COMPOUNDER Unavailable [phone] Tori Hines [facility] Unavailable Miranda Queen [facility] Unavailable Unavailable Marisel Armando MD Unavailable Marisel Armando MD Unavailable Wesley Barrett MD Unavailable [phone] Dyan Fuentes MD Primary Care Provider [phone] Dyan Fuentes MD Unavailable [phone] Katiana Read MD Unavailable [phone] Meme Singleton PhD Unavailable [phone] Mary Del Cid SULKY DRIVER Unavailable [phone] Elham Stack [facility] Unavailable [phone] Mary Del Cid NP Unavailable [phone] Michelle Guzman DPM, Podiatry /Foot and Ankle Surgery Unavailable Dyan Fuentes MD Unavailable [phone] Reason for Referral * Med Therapy Management (Routine) - Pending Review Specialty Diagnoses / Procedures Referred By Jose R kelly Referred To Contact Pharmacist Diagnoses Hypothyroidism, unspecified type Mike Parson MD [address] [place] [address] Referral ID Status Reason Start Date Expiration Date V isits Requested Visits Authorized [id number] Pending Review 12/07/2022 12/07/2023 1 1 Scheduling Instructions MTM referral reason Total Score: 2 Patient had a hospital or ED visit in last 6 months and has more than 10 CHARGE NURSE or Discharge medications Patient has 5 CHARGE NURSE or Discharge Medications AND one of the following diagnoses: DM,HF,COPD, or AMI DX Question Answer Type of MTM: Primary Care Course of Action: Transitions of Care Reason for Referral: see Scheduling Instructions Comments This service is designed to help you get the most from your medications. A specially trained pharmacist will work closely with you and your doctors to solve any problems related to your medications and to help you get the best results from taking them. The Medication Therapy Management staff will call you to schedule an appointment. Reason for Visit * Reason Comments Chest Pain * Auth/Cert (Routine) Specialty Diagnoses / Procedures Referred By Jose R kelly Referred To Contact EMERGENCY MEDICINE Diagnoses Hypothyroidism, unspecified type Acute on chronic pancreatitis (H) Chest pain, unspecified type Elevated troponin Hyperglycemia Hepatic steatosis Pulmonary nodules Hypothyroidism, unspecified type [facility] [address] [place] [address] Referral ID Status Reason Start Date Expiration Date Visits Re quested Visits Authorized [id number] 1 1 Encounter Details Date Type Department Care Team (Late st Contact Info) Description 12/03/2022 9:15 AM CDT - 2022 5:13 PM CDT Hospital Encounter M [facility] [address] [place] [id number] Dyan Kaur, PA-C [facility] [address] [place] [address] Parag Sutton MD [facility] [address] [place] [address] Oswaldo Awad, DO [address] [place], [place] [id number] Acute on chronic pancreatitis (H) (Primary Dx); Chest pain, unspecified type; Elevated troponin; Hyperglycemia; Hepatic steatosis; Pulmonary nodules; Hypothyroidism, unspecified type Discharge Disposition: Home or Self Care Social [...] often do you attend chur ch or yarsanism services? 1 to 4 times [...] Answer Date Recorded PHQ-2 Score 2 [facility] - Occupational Stress Questionnaire Answer Date [...] Sign Reading Time Taken Comments Blood Pressure 113/65 2022 8:52 AM CDT Pulse 65 2022 8:52 AM CDT Temperature 36.4 ??C (97.6 ??F) 2022 8:52 AM CD T Respiratory Rate 20 2022 8:52 AM CDT Oxygen Saturation 94% 2022 8:52 AM CDT Inhaled Oxygen Concentration - - Weight 103.4 kg (228 lb) 2022 7:00 AM CDT Height 172.7 cm (5' 8) 2022 7:00 AM CDT Body Mass Index 34.67 2022 7:00 AM CDT documented in this encounter Discharge Summaries * Shirlene Islas MD - 2022 3:46 PM CDT Discharge Summary Hospitalist Service Kaila Hernandez Date of : 1960 Age: [age] year old Date of Admission: 12/03/2022 Date of Discharge: 2022 Admitting Physician: Oswaldo Awad DO Discharge Physician: Shirlene Islas MD Discharging Service: Hospitalist Service Primary Provider: Dyan Fuentes Primary Care Physician Discharge Diagnoses/Problem Oriented Hospital Course (Providers): Kaila Hernandez was admitted on 12/03/2022 by Oswaldo Awad DO and I would refer you to their history and physical. The following problems were addressed during her hospitalization: Acute on chronic pancreatitis Neurogenic bladder Hx of C diff Elevated troponin T2dm Htn/hlp Elevated LFTs MARIELLE non compliant with CPAP Pancytopenia COPD non O2 dependent, tobacco abuse Suspected lipoma of the abdominal wall Summary of Stay: Kaila Hernandez is a 61 year old female with a history of htn/hlp/T2dm, hx of stress cardiomyopathy with EF 60-65 % with G1dd in 10/2020, Obesity/MARIELLE not able to tolerate CPAP,neurogenic bladder who self caths at home,COPD not on home O2, hx of CDiff, depression with anxiety, chronic/recurrent pancreatitis due to hypertriglyceridemia, chronic pain with hx of opioid dependence now on buprenorphine, peripheral neuropathy, tobacco dependence admitted on 12/03/2022 with acuteon chronic pancreatitis ? Problem List: Acute on Chronic Pancreatitis Her chronic pancreatitis is related to hypertriglyceridemia, it was wnl during this hospitalization she continues to occasionally drink alcohol and last had alcohol about 4-5 days cryptanalyst which correlates with the onset of sx. Lipase elevated at [address] with with fat stranding around the pancreas consistent with inflammation TGs wnl Was transitioned to low fat diet the day before yesterday but has not been able to tolerate it withrecurrence of abdominal pain and nausea and so back to fulls but will advance again to low fat diettoday -ok to cont with prn oral hydromorphone although probably not adding much to cover her pain as she is on chronic buprenorphine but she thinks it does -also on lorazepam for nausea control and understands that this will not be prescribed for her at home. -suspect that her pancreatitis was brought about by the alcohol and she'll need to abstain She continues to have abdominal pain with persistent nausea and poor po long past when I thought she should be feeling better. This prompted CT abdomen which shows ? Splenic vein thrombosis which theoretically could be causing some of her pain although doubt it would cause her nausea. I looked at her CT and she does appear to have a moderate stool burden -US to assess for SV thrombosis and negative -high dose miralax to get her pooping and she's had two poops Overall her symptoms are improved but persist, she feels good enough for discharge so will discharge with close follow-up, recommended small frequent meals ? Neurogenic bladder Cont with straight cath as at home. UA looks good. ?? Hx of C diff in 10/2022 Adequately treated ?? Elevated troponin Trop x 2 21-> 19 and without CP 2/2 T2 LA, she has RF so might be reasonable to arrange for OP stress testing. ?? Chronic opioid dependence On home buprenorphine-naloxone ?? T2dm Glucose was 275 on presentation and hgb A1c 6.5 % and so started on glargine 5 unit(s) every day and ISS with adequate control. Hyperglycemia not good for her hypertriglyceridemia -cryptanalyst regimen was glargine 10 unit(s) with ISS, BGs climbing so will resume home regimen ?? Htn/hlp Cont with amlodipine 10 mg every day and metop 25 mg bid: BPs look under good control Cont with cholestyramine/fenofibrate/rosuvastatin ?? Elevated LFTs Minimally elevated and now normalized, no structural derangement noted on CT or AUS ?? MARIELLE noncompliant with CPAP ?? Hypoproteinemia/hypoalbuminemia UA does not look consistent with with a nephrotic picture. No diarrhea to suggest a enteropathy as the cause so much be an intake issue ?? Depression Continue Rexulti, Clonazepam, Desvenlafaxine and Risperidone ?? hypothyroidism -Patient admits that she has not been taking her levothyroxine on schedule and therefore her water gas operator has not adjusted her dose despite elevated TSH and low T4 with numbers slowly improving -Continue current dosing ?? Tobacco use Patient plans to quit in the near future -Ordered nicotine patch ?? Non O2 dependent COPD Stable ?? Suspected lipoma of the abdominal wall She states it is quite tender, so she should see a surgeon at some point to discuss removal ?? Covid S/p J&J followed by moderna booster 06/2021 ? DVT Prophylaxis: Pneumatic Compression Devices Code Status: Full Code Functional Status: independent in ADLs Diet: reg texture at baseline Mello: straight caths at home Code Status: Full Code Brief Hospital Stay Summary Sent Home With Patient in AVS: Reason for your hospital stay Acute pancreatitis Important Results: As noted below Pending Results: Unresulted Labs Ordered in the Past 30 Days of this Admission Date and Time Order Name Status Description 12/10/2022 1:14 PM Bld morphology pathology review In process Discharge Instructions and Follow-Up: Follow-up Appointments Follow-up and recommended labs and tests Follow-up with your PCP in 1-2 weeks Talk to them about what I think is a lipoma on your abdomen and consider a referral to surgery for removal, especially because it's painful which is an unusual characteristic for that type of tumor. You had a minimally elevated troponin which is an enzyme that is leached from the heart which was likely related to your acute medical illness, nonetheless you do have risk factors for heart disease and you should talk with your PCP about getting set up for a stress test Discharge Disposition: Discharged to home Discharge Medications: Current Discharge Medication List CONTINUE these medications which have NOT CHANGED Details albuterol (PROAIR HFA/PROVENTIL HFA/VENTOLIN HFA) 108 (90 Base) MCG/ACT inhaler Inhale 2 puffs intothe lungs every 4 hours as needed for shortness of breath / dyspnea or wheezing Qty: 8.5 g, Refills: 0 Comments: Pharmacy may dispense brand covered by insurance (Proair, or proventil or ventolin or generic albuterol inhaler) Associated Diagnoses: Chronic obstructive pulmonary disease, unspecified COPD type (H) amLODIPine (NORVASC) 10 MG tablet Take 1 tablet (10 mg) by mouth daily Qty: 90 tablet, Refills: 3 Associated Diagnoses: Benign essential hypertension aspirin 81 MG EC tablet Take 81 mg by mouth daily brexpiprazole (REXULTI) 2 MG tablet Take 2 mg by mouth daily buprenorphine HCl-naloxone HCl (SUBOXONE) 2-0.[address] 1 Film under the tongue 3 times daily OK to fill 11/27/22 start 11/29/22. May refill every 30 days. Qty: 90 Film, Refills: 2 Associated Diagnoses: Chronic pain syndrome calcium carbonate (OS-ALISA) 1500 (600 Ca) MG tablet Take 1 tablet (600 mg) by mouth 2 times daily (with meals) Qty: 100 tablet, Refills: 0 Associated Diagnoses: Tobacco dependence clonazePAM (KLONOPIN) 1 MG tablet Take 1 mg by mouth 2 times daily colestipol (COLESTID) 1 g tablet Take 1 tablet by mouth 2 times daily cyanocobalamin (CYANOCOBALAMIN) 1000 MCG/ML injection INJECT 1 ML (1000 MCG) INTRAMUSCULARLY EVERY 30 DAYS. DISCARD 28 DAYS AFTERFIRST USE Strength: 1,000 mcg/mL Qty: 3 mL, Refills: 3 Associated Diagnoses: Vitamin B12 deficiency !! desvenlafaxine (PRISTIQ) 100 MG 24 hr tablet TAKE 1 TABLET BY MOUTH EVERY DAY Qty: 90 tablet, Refills: 0 Associated Diagnoses: Anxiety !! desvenlafaxine (PRISTIQ) 50 MG 24 hr tablet TAKE 1 TABLET BY MOUTH ONCE DAILY TAKE WITH 100MG TABS FOR A TOTAL DAILY DOSE OF 150MGS Qty: 90 tablet, Refills: 0 Associated Diagnoses: Anxiety fenofibrate (TRICOR) 48 MG tablet Take 1 tablet (48 mg) by mouth daily Qty: 90 tablet, Refills: 3 Associated Diagnoses: Hypertriglyceridemia ferrous sulfate (FEROSUL) 325 (65 Fe) MG tablet Take 325 mg by mouth daily (with breakfast) Qty: 100 tablet, Refills: 1 Associated Diagnoses: Generalized muscle weakness; Hypokalemia; Tobacco dependence hydrOXYzine (ATARAX) 25 MG tablet Take 25 mg by mouth 4 times daily insulin aspart (NOVOLOG FLEXPEN) 100 UNIT/ML pen INJECT 1 UNIT FOR 50 POINTS ABOVE 150 WITH EACH MEAL (TOTAL DAILY DOSE 10-15 UNITS PER DAY) Qty: 15 mL, Refills: 1 Associated Diagnoses: Type 1 diabetes mellitus with diabetic neuropathy (H) levothyroxine (SYNTHROID/LEVOTHROID) 175 MCG tablet Take 2 tablets (350 mcg) by mouth daily Qty: 180 tablet, Refills: 1 Associated Diagnoses: Postprocedural hypothyroidism methocarbamol (ROBAXIN) 500 MG tablet Take 2 tablets (1,000 mg) by mouth 4 times daily Qty: 150 tablet, Refills: 2 Associated Diagnoses: Chronic pain syndrome; Muscle spasm metoprolol tartrate (LOPRESSOR) 25 MG tablet TAKE 1 TABLET BY MOUTH TWICE A DAY Qty: 180 tablet, Refills: 3 Associated Diagnoses: Benign essential hypertension omega-3 acid ethyl esters (LOVAZA) 1 g capsule TAKE 2 CAPSULES BY MOUTH TWICE A DAY Qty: 360 capsule, Refills: 1 Associated Diagnoses: Hypertriglyceridemia pantoprazole (PROTONIX) 40 MG EC tablet Take 1 tablet (40 mg) by mouth daily Qty: 90 tablet, Refills: 3 Associated Diagnoses: Gastroesophageal reflux disease without esophagitis Potassium Gluconate 595 MG CAPS Take 1 capsule by mouth daily Qty: 100 capsule, Refills: 1 Associated Diagnoses: Generalized muscle weakness risperiDONE (RISPERDAL M-TABS) 0.[address] 0.5 mg under the tongue every morning rosuvastatin (CRESTOR) 40 MG tablet Take 1 tablet (40 mg) by mouth daily Qty: 90 tablet, Refills: 3 Associated Diagnoses: Hypertriglyceridemia; Hyperlipidemia LDL goal <100 Vitamin D3 (VITAMIN D, CHOLECALCIFEROL,) 25 mcg (1000 units) tablet Take 1 tablet by mouth daily Continuous Blood Gluc Wringer Operator (DEXCOM G6 PROSTHETICS ASSISTANT) ANITA USE DAILY Qty: 1 each, Refills: 0 Associated Diagnoses: Type 2 diabetes mellitus without complication, with long- term current use of insulin (H) Continuous Blood Gluc Sensor (DEXCOM G6 SENSOR) MISC USE 1 SENSOR EVERY 10 DAYS Qty: 9 each, Refills: 3 Associated Diagnoses: Type 2 diabetes mellitus without complication, with long- term current use of insulin (H) Continuous Blood Gluc Transmit (DEXCOM G6 TRANSMITTER) MISC Change every 3 months to continuously monitor blood glucose. Qty: 1 each, Refills: 3 Associated Diagnoses: Type 2 diabetes mellitus without complication, with long- term current use of insulin (H) EPINEPHrine (ANY BX GENERIC EQUIV) 0.3 MG/0.3ML injection 2-pack Inject 0.3 mLs (0.3 mg) into the muscle as needed for anaphylaxis (EPI-PEN) Qty: 2 each, Refills: 1 Associated Diagnoses: Bee sting allergy insulin glargine (BASAGLAR KWIKPEN) 100 UNIT/ML pen Inject 10 Units Subcutaneous every morning Qty: 15 mL, Refills: 1 Comments: If Basaglar is not covered by insurance, may substitute Lantus or Semglee or other insulin glargine product per insurance preference at same dose and frequency. Associated Diagnoses: Type 2 diabetes mellitus without complication, with long- term current use of insulin (H) naloxone (NARCAN) 4 MG/0.1ML nasal spray [place] 1 spray (4 mg) into one nostril alternating nostrilsonce as needed for opioid reversal Qty: 0.2 mL, Refills: 0 Associated Diagnoses: At risk for substance overdose nitroGLYcerin (NITROSTAT) 0.[address] 1 tablet (0.4 mg) under the tongue every 5minutes as needed for chest pain Qty: 25 tablet, Refills: 0 Associated Diagnoses: Chest pain, unspecified type nystatin (MYCOSTATIN) 379108 UNIT/GM external ointment Apply topically 2 times daily as needed ondansetron (ZOFRAN) 8 MG tablet Take 1 tablet (8 mg) by mouth every 8 hours as needed for nausea Qty: 90 tablet, Refills: 1 Associated Diagnoses: Nausea simethicone (MYLICON) 80 MG chewable tablet Take 1 tablet (80 mg) by mouth every 6 hours as needed for flatulence or cramping Associated Diagnoses: Pancolitis (H) !! - Potential duplicate medications found. Please discuss with provider. Allergies: Allergies Allergen Reactions ??? Bees Anaphylaxis ??? Levaquin [Levofloxacin Hemihydrate] Rash ??? Nsaids Hx GI Bleed ??? Reglan [Metoclopramide Hcl] Hives ??? Droperidol Other (See Comments) Behavioral changes ??? Nalbuphine Hcl Behavioral changes ??? Phenergan [Promethazine] Other (See Comments) Patient reports she gets mean & jerky Consultations This Hospital Stay: none Condition and Physical on Discharge: Discharge condition: Stable Vitals: Blood pressure 113/65, pulse 65, temperature 97.6 ??F (36.4 ??C), temperature source Temporal, resp. rate 20, height 1.727 m (5' 8), weight 103.4 kg (228 lb), SpO2 94 %, not currently . Constitutional: Pleasant nad looks stated age head nc/at sclera clear Lungs: cta nl effort Cardiovascular: rrr no mrg no le edema Abdomen: Belly s/nt/nd Skin: Warm and dry no cyanosis or clubbing alert and oriented affect appropriate Other: Ambulating without difficulty Discharge Time: Greater than 30 minutes. Image Results From This Hospital Stay (For Non-EPIC Providers): Results for orders placed or performed during the hospital encounter of 12/03/22 CT Chest Pulmonary Embolism w Contrast Narrative CT CHEST PULMONARY EMBOLISM WITH CONTRAST 12/03/2022 11:59 AM HISTORY: D-dimer elevated, chest pain, shortness of breath, abdominal tenderness, nausea, vomiting and diarrhea, elevated lipase. TECHNIQUE: Scans obtained from the apices through the diaphragm with IV contrast. 75 mL Isovue-370 IV injected. Radiation dose for this scan was reduced using automated exposure control, adjustment of the mA and/or kV according to patient size, or iterative reconstruction technique. 2D and 3D MIP reconstructions were performed by the medical technologist microbiology COMPARISON: Chest CT on 09/06/2022. FINDINGS: Chest/mediastinum: No evidence of pulmonary embolism. No cardiomegaly or significant pericardial effusion. Moderate atherosclerotic vascular calcification of the coronary arteries. No significant mediastinal or hilar lymphadenopathy. Lungs and pleura: No pleural effusion or pneumothorax. Bibasilar pulmonary opacities, likely atelectasis. Few scattered pulmonary nodules including for example 3 mm right upper lobe nodule (series 7 image 82), 6 mm right lower lobe subpleural nodule (series 7 image 169) and 4 mm posterior left lower lobe nodule (series 7 image 199), are not significantly changed as compared to 09/06/2022 exam. Upper abdomen: Limited evaluation of the upper abdomen due to lack of coverage and timing of contrast. Diffuse hypodense appearance of the liver, likely due to underlying hepatic steatosis. Scattered areas of coarse pancreatic calcification, likely sequela of chronic pancreatitis. Mild peripancreatic fat stranding, worrisome for acute pancreatitis. Bones and soft tissue: Partially visualized postsurgical changes of the lower cervical spine. No suspicious osseous lesion. Impression IMPRESSION: 1. No evidence of pulmonary embolism. 2. Mild basilar pulmonary opacities, likely atelectasis. 3. Mild peripancreatic fat stranding, worrisome for acute pancreatitis. Coarse pancreatic parenchymal calcification, likely sequela of chronic pancreatitis. 4. Hepatic steatosis. SHAWN IRELAND MD CT Abdomen Pelvis w Contrast Narrative CT ABDOMEN AND PELVIS WITH CONTRAST 12/10/2022 11:58 AM HISTORY: Ongoing severe abdominal pain with nausea and inability to take adequate po. TECHNIQUE: CT scan obtained of the abdomen, and pelvis without IV contrast. Radiation dose for this scan was reduced using automated exposure control, adjustment of the mA and/or kV according to patient size, or iterative reconstruction technique. COMPARISON: CT abdomen and pelvis on 10/14/2022. FINDINGS: No contrast visualized within the abdominal organs, likely due to being infiltrated. Lower chest: Bilateral pulmonary opacities, likely atelectasis. Abdomen/pelvis:Limited evaluation of the abdominal organs due to lack of intravenous contrast, within this limitation, there is: Hepatobiliary: Diffuse hypodense appearance of the liver, likely due to underlying hepatic steatosis. The gallbladder is surgically absent. Pancreas: Scattered area of pancreatic parenchymal calcification, likely sequela of chronic pancreatitis. The pancreatic tail is not visualized, likely a normal variant. Spleen: The spleen is enlarged measuring 13.8 cm in craniocaudal dimension. Adrenal glands: No adrenal nodules. Kidneys: No radiodense kidney/ureteral stones or hydronephrosis in the kidney. There is 1.4 cm cyst at the upper pole of the right kidney. Bowel: No abnormally dilated bowel loops. Peritoneum: Small amount of free fluid in the pelvis, of indeterminate etiology. No free peritoneal or portal venous gas. Pelvic organs: The uterus is not visualized, likely surgically absent. Vascular: Moderate atherosclerotic vascular calcification of the abdominal aorta and iliac vessels. Enlarged venous collateral in the left upper quadrant, could be a sequela of splenic venous occlusion. Lymph nodes: No significant abdominopelvic lymphadenopathy. Bones and soft tissue: Multiple nodular soft tissue densities and multiple foci of subcutaneous air in the lower anterior abdominal wall, could be related to medications injections. Postsurgical changes of right hip arthroplasty. Multilevel degenerative changes of the spine. Impression IMPRESSION: No contrast visualized within the abdominal organs, likely due to contrast infiltration, within this limitation, there is: 1. No acute pathology in the abdomen or pelvis. 2. Hepatic steatosis and splenomegaly. 3. Small amount of free fluid in the pelvis of indeterminate etiology. 4. Scattered areas of pancreatic parenchymal calcification, likely sequela of chronic pancreatitis. 5. Enlarged venous collateral in the left upper quadrant, could be related to splenic vein occlusion. 6. Multiple nodular soft tissue densities and multiple foci of subcutaneous air within the lower anterior abdominal wall, could be related to medications injections. SHAWN IRELAND MD US Abdomen Complete w Doppler Complete Narrative EXAM: ULTRASOUND ABDOMEN COMPLETE WITH DOPPLER COMPLETE LOCATION: [facility] DATE/TIME: 2022, 8:56 AM CDT INDICATION: Question splenic vein thrombosis on CT scan in one with ongoing unexplained abdominal pain. COMPARISON: CT abdomen and pelvis on 12/10/2022. TECHNIQUE: Complete abdominal ultrasound. Color flow with spectral Doppler and waveform analysis performed. FINDINGS: GALLBLADDER: Surgically absent. BILE DUCTS: No biliary dilatation. The common duct measures 9 mm. LIVER: Demonstrates increased parenchymal echogenicity. No focal mass. RIGHT KIDNEY: Normal size. Normal echogenicity with no hydronephrosis or mass. LEFT KIDNEY: Normal size. No hydronephrosis. SPLEEN: The spleen is enlarged measuring 13.8 cm in craniocaudal dimension.. PANCREAS: The visualized portion of the pancreas appears normal, although the pancreatic tail was not well-seen/obscured by overlying bowel gas. AORTA: Normal in caliber. IVC: Normal where visualized. No ascites. ABDOMINAL DUPLEX: The hepatic artery, hepatic veins, IVC, portal veins, and splenic vein are patentwith flow in the normal direction. Impression IMPRESSION: 1. Hepatic steatosis. 2. Splenomegaly. 3. Normal abdominal liver duplex. *Note: Due to a large number of results and/or encounters for the requested time period, some results have not been displayed. A complete set of results can be found in Results Review. Most Recent Lab Results In [facility] (For Non-[facility] Providers): Most Recent 3 CBC's: Recent Labs Lab Test 12/11/22 0654 12/10/22 1314 12/10/22 0655 WBC 2.8* 2.6* 2.6* HGB 9.5* 10.1* 9.8* MCV 101* 102* 100 PLT 154 155 144* Most Recent 3 BMP's: Recent Labs Lab Test 12/11/22 1409 12/11/22 0654 12/11/22 0233 12/10/22 0719 12/10/22 0655 12/09/22 0819 12/09/22 0708 NA -- 138 -- -- 139 -- 139 POTASSIUM -- 4.3 -- -- 4.1 -- 4.3 CHLORIDE -- 104 -- -- 106 -- 106 CO2 -- 24 -- -- 25 -- 23 BUN -- 7.9* -- -- 6.7* -- 5.1* CR -- 1.00* -- -- 0.99* -- 0.98* ANIONGAP -- 10 -- -- 8 -- 10 ALISA -- 8.5* -- -- 8.4* -- 8.4* GLC 206* 135* 176* < > 202* < > 118* < > = values in this interval not displayed. Most Recent 2 LFT's: Recent Labs Lab Test 12/11/22 0654 12/10/22 0655 AST 15 17 ALT 8* 9* ALKPHOS 82 88 BILITOTAL 0.2 0.2 Most Recent Cholesterol Panel: Recent Labs Lab Test 10/04/22 1356 CHOL 210* LDL 50 HDL 64 TRIG 596* Most Recent TSH, T4 and HgbA1c: Recent Labs Lab Test 12/03/22 0946 11/25/22 1539 10/16/22 2131 TSH 22.03* < > -- T4 0.74* < > -- A1C -- -- 6.5* < > = values in this interval not displayed. documented in this encounter Medications at Time of Discharge [...] 2 times daily 0 Continuous Blood Gluc Wringer Operator (DEXCOM G6 PROSTHETICS ASSISTANT) DEVIIndications:Type 2 diabetes mellitus without complication, with [...] MG/0.1ML nasal sprayIndications:At risk for substance overdose [place] 1 spray (4 mg) into one nostril alternating nostrils once as needed for opioid reversal 0.2 mL 0 11/11/2022 nitroGLYcerin (NITROSTAT) 0.4 MG sublingual tabletIndications:Ariadna st pain, unspecified type Place 1 tablet (0.4 mg) under the tongue every 5 minutes as needed for chest pain 25 tablet 0 08/20/2019 nystatin (MYCOSTATIN) [id number] UNIT/GM external ointment Apply topically 2 times [...] 06/14/2022 05/12/2023 documented as of this encounter Progress Notes * Shirlene Islas MD - 12/10/2022 3:26 PM CDT [facility] Hospitalist Progress Note Shirlene Islas MD 12/10/2022 Reason for Stay (Diagnosis): pancreatitis Assessment and Plan: Summary of Stay: Kaila Hernandez is a 61 year old female with a history of htn/hlp/T2dm, hx of stress cardiomyopathy with EF 60-65 % with G1dd in 10/2020, Obesity/MARIELLE not able to tolerate CPAP,neurogenic bladder who self caths at home,COPD not on home O2, hx of CDiff, depression with anxiety, chronic/recurrent pancreatitis due to hypertriglyceridemia, chronic pain with hx of opioid dependence now on buprenorphine, peripheral neuropathy, tobacco dependence admitted on 12/03/2022 with acuteon chronic pancreatitis Problem List: Acute on Chronic Pancreatitis Her chronic pancreatitis is related to hypertriglyceridemia, it was wnl during this hospitalization she continues to occasionally drink alcohol and last had alcohol about 4-5 days cryptanalyst which correlates with the onset of sx. Lipase elevated at [address] with with fat stranding around the pancreas consistent with inflammation TGs wnl Was transitioned to low fat diet the day before yesterday but has not been able to tolerate it withrecurrence of abdominal pain and nausea and so back to fulls but will advance again to low fat diettoday -ok to cont with prn oral hydromorphone although probably not adding much to cover her pain as she is on chronic buprenorphine but she thinks it does -also on lorazepam for nausea control and understands that this will not be prescribed for her at home. -suspect that her pancreatitis was brought about by the alcohol and she'll need to abstain She continues to have abdominal pain with persistent nausea and poor po long past when I thought she should be feeling better. This prompted CT abdomen which shows ? Splenic vein thrombosis which theoretically could be causing some of her pain although doubt it would cause her nausea. I looked at her CT and she does appear to have a moderate stool burden -US to assess for SV thrombosis -high dose miralax to get her pooping Neurogenic bladder Cont with straight cath as at home. UA looks good. Hx of C diff in 10/2022 Adequately treated Elevated troponin Trop x 2 21-> 19 and without CP 2/2 T2 LA, she has RF so might be reasonable to arrange for OP stress testing. Chronic opioid dependence On home buprenorphine-naloxone T2dm Glucose was 275 on presentation and hgb A1c 6.5 % and so started on glargine 5 unit(s) every day and ISS with adequate control. Hyperglycemia not good for her hypertriglyceridemia -started glimepiride 2 mg every day with fair control at best, will defer additional adjustments toOP Htn/hlp Cont with amlodipine 10 mg every day and metop 25 mg bid: BPs look under good control Cont with cholestyramine/fenofibrate/rosuvastatin Elevated LFTs MARIELLE noncompliant with CPAP Hypoproteinemia/hypoalbuminemia UA does not look consistent with with a nephrotic picture. 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 her dose despite elevated TSH and low T4 with numbers slowly improving -Continue current dosing Tobacco use Patient plans to quit in the near future -Ordered nicotine patch Non O2 dependent COPD Stable Suspected lipoma of the abdominal wall She states it is quite tender, so she should see a surgeon at some point to discuss removal Covid S/p J&J followed by william carl 06/2021 DVT Prophylaxis: Pneumatic Compression Devices Code Status: Full Code Functional Status: Diet: reg texture at baseline Mello: straight caths at home Access PIV Disposition Plan Expected discharge in 1-2 days to prior living arrangement once tolerating po . Entered: Shirlene Islas MD 12/10/2022, 3:27 PM Securely message with [employer] (more info) Text page via [facility] Paging/Directory I spent 60 minutes reviewing epic including prior labs/imaging/medical history and notes related tothis encounter In addition time was spent in interveiwing the patient, communicating with contacts,and medical decision making Interval History (Subjective): Still with lots of nausea but no vomiting ongoing abdominal pain and poor po. She is otherwise ambulatory and doing well. Physical Exam: Last Vital Signs: BP 96/59 (BP Location: Right arm) Pulse 67 Temp 97.6 ??F (36.4 ??C) (Temporal) Resp 16 Ht 1.727 m (5' 8) Wt 104.3 kg (230 lb) LMP (LMP Unknown) SpO2 95% BMI 34.97 kg/m?? I/O: Pleasant nad looks stated age head nc/at sclera clear lungs ctab nl effort rrr no mrg no le edema belly is protuberant but soft, some ttp in epigastric region. Skin warm and dry no cyanosis or clubbing alert and oriented affect appropriate mensah Medications: All current medications were reviewed with changes reflected in problem list. Data: All new lab and imaging data was reviewed. Labs: Recent Labs Lab 12/10/22 1330 12/10/22 0719 12/10/22 0655 NA -- -- 139 POTASSIUM -- -- 4.1 CHLORIDE -- -- 106 CO2 -- -- 25 ANIONGAP -- -- 8 GLC 114* < > 202* BUN -- -- 6.7* CR -- -- 0.99* GFRESTIMATED -- -- 64 ALISA -- -- 8.4* < > = values in this interval not displayed. Recent Labs Lab 12/10/22 1314 WBC 2.6* HGB 10.1* HCT 31.1* MCV 102* PLT 155 Recent Labs Lab 12/10/22 1330 12/10/22 0719 12/10/22 0655 12/10/22 0159 12/09/22 2148 GLC 114* 197* 202* 111* 180* Recent Labs Lab 12/10/22 0655 12/09/22 0708 12/08/22 0628 AST 17 22 26 ALT 9* 8* 11 ALKPHOS 88 99 103 BILITOTAL 0.2 0.2 0.2 Imaging: Results for orders placed or performed during the hospital encounter of 12/03/22 CT Chest Pulmonary Embolism w Contrast Narrative CT CHEST PULMONARY EMBOLISM WITH CONTRAST 12/03/2022 11:59 AM HISTORY: D-dimer elevated, chest pain, shortness of breath, abdominal tenderness, nausea, vomiting and diarrhea, elevated lipase. TECHNIQUE: Scans obtained from the apices through the diaphragm with IV contrast. 75 mL Isovue-370 IV injected. Radiation dose for this scan was reduced using automated exposure control, adjustment of the mA and/or kV according to patient size, or iterative reconstruction technique. 2D and 3D MIP reconstructions were performed by the medical technologist microbiology COMPARISON: Chest CT on 09/06/2022. FINDINGS: Chest/mediastinum: No evidence of pulmonary embolism. No cardiomegaly or significant pericardial effusion. Moderate atherosclerotic vascular calcification of the coronary arteries. No significant mediastinal or hilar lymphadenopathy. Lungs and pleura: No pleural effusion or pneumothorax. Bibasilar pulmonary opacities, likely atelectasis. Few scattered pulmonary nodules including for example 3 mm right upper lobe nodule (series 7 image 82), 6 mm right lower lobe subpleural nodule (series 7 image 169) and 4 mm posterior left lower lobe nodule (series 7 image 199), are not significantly changed as compared to 09/06/2022 exam. Upper abdomen: Limited evaluation of the upper abdomen due to lack of coverage and timing of contrast. Diffuse hypodense appearance of the liver, likely due to underlying hepatic steatosis. Scattered areas of coarse pancreatic calcification, likely sequela of chronic pancreatitis. Mild peripancreatic fat stranding, worrisome for acute pancreatitis. Bones and soft tissue: Partially visualized postsurgical changes of the lower cervical spine. No suspicious osseous lesion. Impression IMPRESSION: 1. No evidence of pulmonary embolism. 2. Mild basilar pulmonary opacities, likely atelectasis. 3. Mild peripancreatic fat stranding, worrisome for acute pancreatitis. Coarse pancreatic parenchymal calcification, likely sequela of chronic pancreatitis. 4. Hepatic steatosis. SHAWN IRELAND MD *Note: Due to a large number of results and/or encounters for the requested time period, some results have not been displayed. A complete set of results can be found in Results Review. * Lauren Cruz - 12/10/2022 2:16 PM CDT [facility] Progress Note [facility] [id number] This was a LOS visit. I introduced myself and patient said someone had been there the day before and she told the person she wasn't interested. She and her visitor thanked me for stopping by. Lauren Cruz MA Associate International Accounting Manager [phone] - pager [facility] remains available 31/01 for emergent requests/referrals, either by having the on-call industrial plant custodian paged or by entering an RAFAELA/STAT consult in [facility] (this will also page the on-call industrial plant custodian). RoutineEpic consults receive an initial response within 24 hours. * Nieves Gutierrez RD - 12/10/2022 12:15 PM CDT CLINICAL NUTRITION SERVICES - ASSESSMENT NOTE Recommendations Ordered by Registered Dietitian (RD): Ordered Ensure strawberry at 10am and 2pm Future/Additional Recommendations: Monitor PO intakes, wt trends Malnutrition: % Weight Loss: Weight loss does not meet criteria for malnutrition % Intake: </= 50% for >/= 5 days (severe malnutrition) Subcutaneous Fat Loss: None observed Muscle Loss: None observed Fluid Retention: None noted Malnutrition Diagnosis: Patient does not meet two of the above criteria necessary for diagnosing malnutrition but is at risk for malnutrition REASON FOR ASSESSMENT Kailagia Hernandez is a 62 year old female seen by Registered Dietitian for LOS. PMH of chronic pancreatitis d/t hypertriglyceridemia, COPD, c diff, HTN, hx of opioid dependene, MARIELLE, hypothyroidism, tobacco dependence and chronic pain. Presents with complaints of nausea, vomiting, diarrhea, and stomach pain. NUTRITION HISTORY Per H&P, drinks alcohol occassionally, last drink 4-5 days ago (correlating w/ onset of symptoms). CT scan showed fat around pancreas which suggests inflammation. No previous RD notes on nutrition history. Spoke with patient and at bedside. Normal eating is 1 meal per day (dinner). Eggs, egg sandwiches, or salads were a few examples of dinners they make per . She also drinks 1 Ensure a day at home. CURRENT NUTRITION ORDERS Diet Order: Low fat diet since 12/07 CLD to FLD 12/06 NPO from 12/03-12/06 Current Intake/Tolerance: Per flowsheets, 75-100% intakes Per [employer], ordering 2-3 meals per day Per MD note yesterday, still lots of nausea and abdominal pain Per patient, 1 week before admission she said she didn't eat anything because of how sick she was feeling (nausea, abd pain, vomiting). Then when she was admitted she was NPO for 3 days. Since she got a diet order on 12/06 she said she has only been eating 3 or 4 bites of her food. Appetite is slowly improving per patient. She said she would accept Ensure strawberry as a supplement. NUTRITION FOCUSED PHYSICAL ASSESSMENT FOR DIAGNOSING MALNUTRITION) Yes - see malnutrition section above ANTHROPOMETRICS Height: 5' 8 Weight: 230 lbs 0 oz Body mass index is 34.97 kg/m??. Weight Status: Obesity Grade I BMI 30-34.9 IBW: 63.6 kg % IBW: 164% Weight History: ~2% wt loss in 2 weeks Wt Readings from Last 10 Encounters: 12/03/22 104.3 kg (230 lb) 11/25/22 106.3 kg (234 lb 6.4 oz) 10/26/22 106.1 kg (234 lb) 10/25/22 104.8 kg (231 lb) 10/14/22 108.9 kg (240 lb) 06/14/22 101.6 kg (224 lb) 11/15/21 106.1 kg (234 lb) 11/10/21 106.4 kg (234 lb 9.1 oz) 10/19/21 100.9 kg (222 lb 8 oz) 10/16/21 99.8 kg (220 lb) LABS BUN 6.7 (L), Cr 0.99 (H), Mg 1.6 (L), ALT 9 (L) MEDICATIONS Ferrous sulfate, novolog medium sliding scale insulin, levothyroxine, protonix ASSESSED NUTRITION NEEDS PER APPROVED PRACTICE GUIDELINES: Dosing Weight 74 kg (adjusted based off admit wt of 104.3 kg and IBW of 63.6 kg) Estimated Energy Needs: 1235-5905 kcals (MSJ w/ AF 1-1.2) Justification: maintenance Estimated Protein Needs: 75-89 grams protein (1-1.2 g pro/Kg) Justification: maintenance, preservation of LBM Estimated Fluid Needs: 1 mL/kcal or per provider pending fluid status NUTRITION DIAGNOSIS: Inadequate oral intake related to poor appetite d/t nausea, abdominal pain as evidenced by patient report of not eating for 1 week CHARGE NURSE and </= 50% intakes for >/= 5 days. NUTRITION INTERVENTIONS Recommendations / Nutrition Prescription Ordered Ensure BID Implementation Nutrition education: discussed importance of meeting kcal and protein needs while admitted and how supplements can help Medical Food Supplement - Ordered strawberry Ensure BID Nutrition Goals Patient to consume >50% of nutritionally adequate meals and at least 1 supplement per day MONITORING AND EVALUATION: Progress towards goals will be monitored and evaluated per protocol and Practice Guidelines Nieves Gutierrez Clinical Dietitian - [facility] Associated attestation - Janine Petit RD - 12/10/2022 2:50 PM CDT I have reviewed the RD exam-eligible employee's note below and agree with the assessment and interventions. Janine Petit RD, LD, [facility] Pager - 3rd floor/ICU: [phone] Pager - All other floors: [phone] Pager - Weekend/holiday: [phone] Office: [phone] * Keegan Hatch RN - 12/10/2022 6:32 AM CDT Pt is alert and oriented, lung sounds clear, up independently in the room.Low fat diet, VSS, ativanand Oxy given for pain.Denies having a BM.BS monitoring. Plan to discharge to home possibly today * Shirlene Islas MD - 12/09/2022 4:07 PM CDT [facility] Hospitalist Progress Note Shirlene Islas MD 12/09/2022 Reason for Stay (Diagnosis): pancreatitis Assessment and Plan: Summary of Stay: Kaila K Rob Hernandez is a 61 year old female with a history of htn/hlp/T2dm, hx of stress cardiomyopathy with EF 60-65 % with G1dd in 10/2020, Obesity/MARIELLE not able to tolerate CPAP,neurogenic bladder who self caths at home,COPD not on home O2, hx of CDiff, depression with anxiety, chronic/recurrent pancreatitis due to hypertriglyceridemia, chronic pain with hx of opioid dependence now on buprenorphine, peripheral neuropathy, tobacco dependence admitted on 12/03/2022 with acuteon chronic pancreatitis Problem List: Acute on Chronic Pancreatitis Her chronic pancreatitis is related to hypertriglyceridemia, it was wnl during this hospitalization she continues to occasionally drink alcohol and last had alcohol about 4-5 days cryptanalyst which correlates with the onset of sx. Lipase elevated at [address] with with fat stranding around the pancreas consistent with inflammation TGs wnl Was transitioned to low fat diet the day before yesterday but has not been able to tolerate it withrecurrence of abdominal pain and nausea and so back to fulls but will advance again to low fat diettoday -ok to cont with prn oral hydromorphone although probably not adding much to cover her pain as she is on chronic buprenorphine but she thinks it does -also on lorazepam for nausea control and understands that this will not be prescribed for her at home. -suspect that her pancreatitis was brought about by the alcohol and she'll need to abstain Neurogenic bladder Cont with straight cath as at home. UA looks good. Hx of C diff in 10/2022 Adequately treated Elevated troponin Trop x 2 21-> 19 and without CP 2/2 T2 LA, she has RF so might be reasonable to arrange for OP stress testing. Chronic opioid dependence On home buprenorphine-naloxone T2dm Glucose was 275 on presentation and hgb A1c 6.5 % and so started on glargine 5 unit(s) every day and ISS with adequate control. Hyperglycemia not good for her hypertriglyceridemia -started glimepiride 2 mg every day with fair control at best, will defer additional adjustments toOP Htn/hlp Cont with amlodipine 10 mg every day and metop 25 mg bid: BPs look under good control Cont with cholestyramine/fenofibrate/rosuvastatin Elevated LFTs MARIELLE noncompliant with CPAP Hypoproteinemia/hypoalbuminemia UA does not look consistent with with a nephrotic picture. 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 her dose despite elevated TSH and low T4 with numbers slowly improving -Continue current dosing Tobacco use Patient plans to quit in the near future -Ordered nicotine patch Non O2 dependent COPD Stable Suspected lipoma of the abdominal wall She states it is quite tender, so she should see a surgeon at some point to discuss removal Covid S/p J&J followed by moderna booster 06/2021 DVT Prophylaxis: Pneumatic Compression Devices Code Status: Full Code Functional Status: Diet: reg texture at baseline Mello: straight caths at home Access PIV Disposition Plan Expected discharge in 1-2 days to prior living arrangement once tolerating po . Entered: Shirlene Islas MD 12/09/2022, 4:07 PM Securely message with [employer] info) Text page via [employer] Paging/Directory I spent 60 minutes reviewing epic including prior labs/imaging/medical history and notes related tothis encounter In addition time was spent in interveiwing the patient, communicating with contacts,and medical decision making Interval History (Subjective): Still with lots of nausea but no vomiting ongoing abdominal pain and poor po. She is otherwise ambulatory and doing well. Physical Exam: Last Vital Signs: BP 101/62 (BP Location: Right arm) Pulse 60 Temp 97.4 ??F (36.3 ??C) (Temporal) Resp 18 Ht 1.727 m (5' 8) Wt 104.3 kg (230 lb) LMP (LMP Unknown) SpO2 95% BMI 34.97 kg/m?? I/O: Pleasant nad looks stated age head nc/at sclera clear lungs ctab nl effort rrr no mrg no le edema belly is protuberant but soft, some ttp in epigastric region. Skin warm and dry no cyanosis or clubbing alert and oriented affect appropriate mensah Medications: All current medications were reviewed with changes reflected in problem list. Data: All new lab and imaging data was reviewed. Labs: Recent Labs Lab 12/09/22 1230 12/09/22 0819 12/09/22 0708 NA -- -- 139 POTASSIUM -- -- 4.3 CHLORIDE -- -- 106 CO2 -- -- 23 ANIONGAP -- -- 10 GLC 180* < > 118* BUN -- -- 5.1* CR -- -- 0.98* GFRESTIMATED -- -- 65 ALISA -- -- 8.4* < > = values in this interval not displayed. Recent Labs Lab 12/09/22 0806 WBC 2.9* HGB 10.1* HCT 31.5* MCV 101* PLT 142* Recent Labs Lab 12/09/22 1230 12/09/22 0819 12/09/22 0708 12/09/22 0152 12/08/22 2137 GLC 180* 99 118* 115* 148* Recent Labs Lab 12/09/22 0708 12/08/22 0628 12/07/22 0611 AST 22 26 29 ALT 8* 11 10 ALKPHOS 99 103 113* BILITOTAL 0.2 0.2 0.3 Imaging: Results for orders placed or performed during the hospital encounter of 12/03/22 CT Chest Pulmonary Embolism w Contrast Narrative CT CHEST PULMONARY EMBOLISM WITH CONTRAST 12/03/2022 11:59 AM HISTORY: D-dimer elevated, chest pain, shortness of breath, abdominal tenderness, nausea, vomiting and diarrhea, elevated lipase. TECHNIQUE: Scans obtained from the apices through the diaphragm with IV contrast. 75 mL Isovue-370 IV injected. Radiation dose for this scan was reduced using automated exposure control, adjustment of the mA and/or kV according to patient size, or iterative reconstruction technique. 2D and 3D MIP reconstructions were performed by the medical technologist microbiology COMPARISON: Chest CT on 09/06/2022. FINDINGS: Chest/mediastinum: No evidence of pulmonary embolism. No cardiomegaly or significant pericardial effusion. Moderate atherosclerotic vascular calcification of the coronary arteries. No significant mediastinal or hilar lymphadenopathy. Lungs and pleura: No pleural effusion or pneumothorax. Bibasilar pulmonary opacities, likely atelectasis. Few scattered pulmonary nodules including for example 3 mm right upper lobe nodule (series 7 image 82), 6 mm right lower lobe subpleural nodule (series 7 image 169) and 4 mm posterior left lower lobe nodule (series 7 image 199), are not significantly changed as compared to 09/06/2022 exam. Upper abdomen: Limited evaluation of the upper abdomen due to lack of coverage and timing of contrast. Diffuse hypodense appearance of the liver, likely due to underlying hepatic steatosis. Scattered areas of coarse pancreatic calcification, likely sequela of chronic pancreatitis. Mild peripancreatic fat stranding, worrisome for acute pancreatitis. Bones and soft tissue: Partially visualized postsurgical changes of the lower cervical spine. No suspicious osseous lesion. Impression IMPRESSION: 1. No evidence of pulmonary embolism. 2. Mild basilar pulmonary opacities, likely atelectasis. 3. Mild peripancreatic fat stranding, worrisome for acute pancreatitis. Coarse pancreatic parenchymal calcification, likely sequela of chronic pancreatitis. 4. Hepatic steatosis. SHAWN IRELAND MD *Note: Due to a large number of results and/or encounters for the requested time period, some results have not been displayed. A complete set of results can be found in Results Review. * Shirlene Islas MD - 12/08/2022 4:13 PM CDT [facility] Hospitalist Progress Note Shirlene Islas MD 12/08/2022 Reason for Stay (Diagnosis): pancreatitis Assessment and Plan: Summary of Stay: Kaila Hernandez is a 61 year old female with a history of htn/hlp/T2dm, hx of stress cardiomyopathy with EF 60-65 % with G1dd in 10/2020, Obesity/MARIELLE not able to tolerate CPAP,neurogenic bladder who self caths at home,COPD not on home O2, hx of CDiff, depression with anxiety, chronic/recurrent pancreatitis due to hypertriglyceridemia, chronic pain with hx of opioid dependence now on buprenorphine, peripheral neuropathy, tobacco dependence admitted on 12/03/2022 with acuteon chronic pancreatitis Problem List: Acute on Chronic Pancreatitis 2/2 hypertriglyceridemia she continues to occasionally drink alcohol and last had alcohol about 4-5 days cryptanalyst which correlates with the onset of sx. Lipase elevated at [address] with with fat stranding around the pancreas consistent with inflammation TGs wnl Was transitioned to low fat diet yesterday but has not been able to tolerate it with recurrence of abdominal pain and nausea. -ok to cont with prn oral hydromorphone although probably not adding much to cover her pain as she is on chronic buprenorphine but she thinks it does -also on lorazepam for nausea control and understands that this will not be prescribed for her at home. -suspect that her pancreatitis was brought about by the alcohol and she'll need to abstain -given ongoing sx will decrease diet back to full liquids Neurogenic bladder Cont with straight cath as at home. UA looks good. Hx of C diff in 10/2022 Adequately treated Elevated troponin Trop x 2 21-> 19 and without CP 2/2 T2 LA, she has RF so might be reasonable to arrange for OP stress testing. Chronic opioid dependence On home buprenorphine-naloxone T2dm Glucose was 275 on presentation and hgb A1c 6.5 % and so started on glargine 5 unit(s) every day and ISS with adequate control. 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 Entered: Shirlene Islas MD 12/08/2022, 4:13 PM Securely message with [employer] (more info) Text page via [employer] Paging/Directory I spent 60 minutes reviewing epic including prior labs/imaging/medical history and notes related tothis encounter In addition time was spent in interveiwing the patient, communicating with contacts,and medical decision making Interval History (Subjective): Feeling nauseated with ongoing abdominal pain since advancing diet no emesis but still relying on pain and nausea medications No cp or sob Physical Exam: Last Vital Signs: BP 96/55 (BP Location: Right arm) Pulse 66 Temp 97.9 ??F (36.6 ??C) (Temporal) Resp 16 Ht 1.727 m (5' 8) Wt 104.3 kg (230 lb) LMP (LMP Unknown) SpO2 91% BMI 34.97 kg/m?? I/O: Pleasant nad looks stated age head nc/at sclera clear lungs ctab nl effort rrr no mrg no le edema belly is protuberant but soft, some ttp in epigastric region. Skin warm and dry no cyanosis or clubbing alert and oriented affect appropriate mensah Medications: All current medications were reviewed with changes reflected in problem list. Data: All new lab and imaging data was reviewed. Labs: Recent Labs Lab 12/08/22 1231 12/08/22 0825 12/08/22 06 NA -- -- 139 POTASSIUM -- -- 4.4 CHLORIDE -- -- 107 CO2 -- -- 23 ANIONGAP -- -- 9 GLC 114* < > 154* BUN -- -- 3.2* CR -- -- 1.01* GFRESTIMATED -- -- 63 ALISA -- -- 8.6* < > = values in this interval not displayed. Recent Labs Lab 12/06/22 0620 12/03/22 0946 WBC -- 3.1* HGB -- 13.1 HCT -- 39.9 MCV -- 98 PLT 133* 184 Recent Labs Lab 12/08/22 1231 12/08/22 0825 12/08/22 0628 12/08/22 0220 12/07/22 2120 GLC 114* 184* 154* 157* 153* Recent Labs Lab 12/08/22 0628 12/07/22 0611 12/06/22 0620 AST 26 29 44* ALT 11 10 12 ALKPHOS 103 113* 120* BILITOTAL 0.2 0.3 0.4 Imaging: Results for orders placed or performed during the hospital encounter of 12/03/22 CT Chest Pulmonary Embolism w Contrast Narrative CT CHEST PULMONARY EMBOLISM WITH CONTRAST 12/03/2022 11:59 AM HISTORY: D-dimer elevated, chest pain, shortness of breath, abdominal tenderness, nausea, vomiting and diarrhea, elevated lipase. TECHNIQUE: Scans obtained from the apices through the diaphragm with IV contrast. 75 mL Isovue-370 IV injected. Radiation dose for this scan was reduced using automated exposure control, adjustment of the mA and/or kV according to patient size, or iterative reconstruction technique. 2D and 3D MIP reconstructions were performed by the medical technologist microbiology COMPARISON: Chest CT on 09/06/2022. FINDINGS: Chest/mediastinum: No evidence of pulmonary embolism. No cardiomegaly or significant pericardial effusion. Moderate atherosclerotic vascular calcification of the coronary arteries. No significant mediastinal or hilar lymphadenopathy. Lungs and pleura: No pleural effusion or pneumothorax. Bibasilar pulmonary opacities, likely atelectasis. Few scattered pulmonary nodules including for example 3 mm right upper lobe nodule (series 7 image 82), 6 mm right lower lobe subpleural nodule (series 7 image 169) and 4 mm posterior left lower lobe nodule (series 7 image 199), are not significantly changed as compared to 09/06/2022 exam. Upper abdomen: Limited evaluation of the upper abdomen due to lack of coverage and timing of contrast. Diffuse hypodense appearance of the liver, likely due to underlying hepatic steatosis. Scattered areas of coarse pancreatic calcification, likely sequela of chronic pancreatitis. Mild peripancreatic fat stranding, worrisome for acute pancreatitis. Bones and soft tissue: Partially visualized postsurgical changes of the lower cervical spine. No suspicious osseous lesion. Impression IMPRESSION: 1. No evidence of pulmonary embolism. 2. Mild basilar pulmonary opacities, likely atelectasis. 3. Mild peripancreatic fat stranding, worrisome for acute pancreatitis. Coarse pancreatic parenchymal calcification, likely sequela of chronic pancreatitis. 4. Hepatic steatosis. SHAWN IRELAND MD *Note: Due to a large number of results and/or encounters for the requested time period, some results have not been displayed. A complete set of results can be found in Results Review. * Mike Parson MD - 12/07/2022 10:52 AM CDT [facility] Medicine Progress Note - Hospitalist Service Date of Admission: 12/03/2022 Assessment & Plan Summary of Stay: Kaila Hernandez is??medically complex??61 year old female with history of chronic pancreatitis due to hypertriglyceridemia,COPD, hx C diff, HTN, neurogenic bladder with self cathing, hx of opioid dependence now on suboxone, MARIELLE but does not use CPAP, recent lumbar fusion, hypothyroidism, tobacco dependence and chronic pain?admitted on 12/03/2022 with complaints of stomach pain, nausea, vomiting and diarrhea. ?? In the ED??patient was afebrile with heart rate 79, pressure 167/91 and breathing comfortably on room air without hypoxia.?In the ED creatinine 0.9, elevated anion gap at 18, normal electrolytes with the exception of chloride at 95, LFT elevation with ALP 168 and AST 49 but otherwise normal LFTs. ??Glucose elevated at 275, lipase elevated at 220, BNP 225, high-sensitivity troponin of 21 with 2-hour repeat of 19, TSH elevated at 22.03 with free T4 low at 0.74 and CBC remarkable for low WBC at3.1 but otherwise normal hemoglobin and platelet count. ??D-dimer elevated at 2.08, UA is contaminated with large amount of squamous epithelial cells so difficult to interpret and CT chest with PE pro tocol is negative for PE but does show mild basilar pulmonary opacities likely atelectasis and mildperipancreatic fat stranding worrisome for acute pancreatitis with hepatic steatosis. ??She was given a 500 mL bolus along with aspirin, Zofran and Dilaudid and admitted for further care. ?? Had some worsening diarrhea 12/05 but she now reports that is resolved. ?? She is not requiring any IV narcotics, currently pain level is under control with oral hydromorphone and intermittent IV Toradol. She is hopeful for advancing her diet as she demonstrated tolerance to full liquids ?? #Acute on chronic pancreatitis -History of chronic pancreatitis due to hypertriglyceridemia but does drink alcohol occasionally -Admits to last alcoholic beverage being 4 to 5 days ago which correlates with onset of symptoms -Lipase elevated at [address] scan of chest shows fat stranding around pancreas suggestive of inflammation -Stop IV fluids -Triglyceride level grossly normal. -Now will be transition and monitored on low-fat diet -Discussed with patient that alcohol cessation is important -Okay for limited quantity of Toradol, allergy is remote history of GI bleeding. On a PPI as well. ?? #Urinary symptoms #History of neurogenic bladder -Patient reports that she straight caths approximately 4 times a day after attempting to urinate -Urine analysis appears to be negative for infection. ?? #DM II -Glucose elevated upon presentation at 275 with last A1c 6.5 in 10/2022 -Given reduced p.o. intake we have reduced Glargine to 5 units daily -ISS ? #History of C. difficile colitis with recent treatment -She does report diarrhea but abdominal complaints can be explained with pancreatitis -Diarrhea resolved as of 12/06 so we will cancel the C. difficile PCR test as it could not be collected. ?? #Chronic pain with history of opioid use disorder -Continue Suboxone and treat acute pain with additional narcotics as needed as above as well as nonnarcotic medications ?? #Elevated??troponin -Pain complaints seem to be localized to stomach without any chest pain or shortness of breath -Troponin x2 is mildly elevated at 21 and 19 but flat -No further work-up warranted ?? #Hypertension -Continue Amlodipine ?? #Tobacco use -Patient plans to quit in the near future -Ordered nicotine patch ?? 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 #Mildly elevated ALP and AST -Suspect due to hepatic steatosis ?? #History of COPD -Denies shortness of breath and cough with clear lungs ?? #History of MARIELLE noncompliant with CPAP ?? #Depression -Continue Rexulti, Clonazepam, Desvenlafaxine and Risperidone ? Diet: Low Fat Diet DVT Prophylaxis: Enoxaparin (Lovenox) SQ Mello Catheter: Not present Lines: None Cardiac Monitoring: None Code Status: Full Code Clinically Significant Risk Factors # Hypoalbuminemia: Lowest albumin = 2.7 g/dL at 12/06/2022 6:20 AM, will monitor as appropriate # Hypertension: Noted on problem list # DMII: A1C = 6.5 % (Ref range: <5.7 %) within past 6 months # Obesity: Estimated body mass index is 34.97 kg/m?? as calculated from the following: Height as of this encounter: 1.727 m (5' 8). Weight as of this encounter: 104.3 kg (230 lb)., PRESENT ON ADMISSION Disposition Plan Expected Discharge Date: 12/08/2022 Possible discharge if she continues to tolerate advancement of diet and pain is under reasonable control on current oral regimen Mike Parson MD, MD Hospitalist Service [facility] Securely message with [employer] (more info) Text page via [facility] Paging/Directory Interval History I assume medicine service care today. Seen and examined. Chart reviewed. Case discussed with nursing service was gracious to be present at bedside during my encounter. We met Ms Bright while she is laying comfortably and sleeping in the bed. She is easily aroused though with minimal verbal stimuli. She endorses no ongoing worsening abdominal pain. Denies any nausea or vomiting. Passing flatus but no BM yet. Denies any chest pain or shortness of breath. Afebrile. Not requiring oxygen support. No bleeding tendencies. No mental status changes either. Physical Exam Vital Signs: Temp: 97.3 ??F (36.3 ??C) Temp src: Temporal BP: 121/62 Pulse: 66 Resp: 18 SpO2: 98 % O2 Device: None (Room air) Weight: 230 lbs 0 oz HEENT; Atraumatic, normocephalic, pinkish conjuctiva, pupils bilateral reactive Obese Skin: warm and moist, no rashes Lymphatics: no cervical or axillary lymphandenopathy Lungs: equal chest expansion, clear to auscultation, no wheezes, no stridor, no crackles, Heart: normal rate, normal rhythm, no rubs or gallops. Abdomen: normal bowel sounds, no tenderness, no peritoneal signs, no guarding Extremities: no deformities, bilateral lower extremity nonpitting edema Neuro; follow commands, alert and oriented x3, spontaneous speech, coherent, moves all extremities spontaneously Psych; no hallucination, euthymic mood, not agitated Medical Decision Making 50 MINUTES SPENT BY ME on the date of service doing chart review, history, exam, documentation & further activities per the note. MANAGEMENT DISCUSSED with the following over the past 24 hours: yes NOTE(S)/MEDICAL RECORDS REVIEWED over the past 24 hours: yes Tests ORDERED & REVIEWED in the past 24 hours: Data I have personally reviewed the following data over the past 24 hrs: N/A \ N/A / N/A 137 105 3.5 (L) / 102 (H) 4.4 24 1.02 (H) \ ALT: 10 AST: 29 AP: 113 (H) TBILI: 0.3 ALB: 2.9 (L) TOT PROTEIN: 5.0 (L) LIPASE: N/A Imaging results reviewed over the past 24 hrs: No results found for this or any previous visit (from the past 24 hour(s)). * Dimitri Harrell MD - 12/06/2022 3:07 PM CDT Update: Tolerating clear liquids w/out IV dilaudid. Will plan to advance to fulls per patient request. Discontinue IV dilaudid, continue w/ PO pain control. Dimitri Harrell MD * Dimitri Harrell MD - 12/06/2022 8:19 AM CDT [facility] Hospitalist Progress Note Dimitri Harrell MD 12/06/2022 Reason for Stay (Diagnosis): Pancreatitis Assessment and Plan: Summary of Stay: Kaila Hernandez is medically complex 61 year old female with history of chronic pancreatitis due to hypertriglyceridemia,COPD, hx C diff, HTN, neurogenic bladder with self cathing, hx of opioid dependence now on suboxone, MARIELLE but does not use CPAP, recent lumbar fusion, hypothyroidism, tobacco dependence and chronic pain admitted on 12/03/2022 with complaints of stomach pain, nausea, vomiting and diarrhea. ?? In the ED patient was afebrile with heart rate 79, pressure 167/91 and breathing comfortably on room air without hypoxia. In the ED creatinine 0.9, elevated anion gap at 18, normal electrolytes with the exception of chloride at 95, LFT elevation with ALP 168 and AST 49 but otherwise normal LFTs. Glucose elevated at 275, lipase elevated at 220, BNP 225, high-sensitivity troponin of 21 with 2- hour repeat of 19, TSH elevated at 22.03 with free T4 low at 0.74 and CBC remarkable for low WBC at 3.1 but otherwise normal hemoglobin and platelet count. D-dimer elevated at 2.08, UA is contaminated withlarge amount of squamous epithelial cells so difficult to interpret and CT chest with PE protocol is negative for PE but does show mild basilar pulmonary opacities likely atelectasis and mild peripancreatic fat stranding worrisome for acute pancreatitis with hepatic steatosis. She was given a 500 mL bolus along with aspirin, Zofran and Dilaudid and admitted for further care. Had some worsening diarrhea 12/05 but she now reports that is resolved. Working on transitioning away from IV narcotics. She will trial clear liquids with the understanding that if she is requiring frequent IV narcotics she will need to become n.p.o. again. Adding 3 doses of Toradol to help with pain control. ?? #Acute on chronic pancreatitis -History of chronic pancreatitis due to hypertriglyceridemia but does drink alcohol occasionally -Admits to last alcoholic beverage being 4 to 5 days ago which correlates with onset of symptoms -Lipase elevated at [address] scan of chest shows fat stranding around pancreas suggestive of inflammation -Continue maintenance fluids, reduced to 75 mL/h as she is urinating quite frequently. -Triglyceride level grossly normal. -Trial of clear liquids. -Dilaudid IV will be available for pain for at least 1 day more, we are spacing this out to every 3hours as needed and we have been discussing moving away from this medication today in favor of oralnarcotics. -Discussed with patient that alcohol cessation is important -Okay for limited quantity of Toradol, allergy is remote history of GI bleeding. On a PPI as well. ?? #Urinary symptoms #History of neurogenic bladder -Patient reports that she straight caths approximately 4 times a day after attempting to urinate -Urine analysis appears to be negative for infection. ?? #DM II -Glucose elevated upon presentation at 275 with last A1c 6.5 in 10/2022 -Given reduced p.o. intake we have reduced Glargine to 5 units daily -ISS ? #History of C. difficile colitis with recent treatment -She does report diarrhea but abdominal complaints can be explained with pancreatitis -Diarrhea resolved as of 12/06 so we will cancel the C. difficile PCR test as it could not be collected. #Chronic pain with history of opioid use disorder -Continue Suboxone and treat acute pain with additional narcotics as needed as above as well as nonnarcotic medications ?? #Elevated troponin -Pain complaints seem to be localized to stomach without any chest pain or shortness of breath -Troponin x2 is mildly elevated at 21 and 19 but flat -No further work-up warranted ?? #Hypertension -Continue Amlodipine ?? #Tobacco use -Patient plans to quit in the near future -Ordered nicotine patch ?? 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 #Mildly elevated ALP and AST -Suspect due to hepatic steatosis ?? #History of COPD -Denies shortness of breath and cough with clear lungs ?? #History of MARIELLE noncompliant with CPAP ?? #Depression -Continue Rexulti, Clonazepam, Desvenlafaxine and Risperidone ? Diet: Clear liquid. DVT Prophylaxis: Enoxaparin (Lovenox) SQ Mello Catheter: Not present Cardiac Monitoring: None Code Status: Full code Clinically Significant Risk Factors # Hypomagnesemia: Lowest Mg = 1.5 mg/dL in last 2 days, will replace as needed # Hypoalbuminemia: Lowest albumin = 2.7 g/dL at 12/06/2022 6:20 AM, will monitor as appropriate # Hypertension: Noted on problem list # DMII: A1C = 6.5 % (Ref range: <5.7 %) within past 6 months # Obesity: Estimated body mass index is 34.97 kg/m?? as calculated from the following: Height as of this encounter: 1.727 m (5' 8). Weight as of this encounter: 104.3 kg (230 lb)., PRESENT ON ADMISSION Interval History (Subjective): Reducing IVF rate Appears more comfortable, still reporting significant pain Loose stools resolved Moving away from IV Dilaudid. Spacing out to every 3 hours as needed and discussed that if she needs frequent dosing we will need to make her n.p.o. again. Adding Toradol and encouraging use of p.o. pain medications. Physical Exam: Last Vital Signs: BP 122/77 Pulse 72 Temp 97.7 ??F (36.5 ??C) (Temporal) Resp 16 Ht 1.727 m (5' 8) Wt 104.3 kg (230 lb) LMP (LMP Unknown) SpO2 95% BMI 34.97 kg/m?? Intake/Output Summary (Last 24 hours) at 12/04/2022 1232 Last data filed at 12/03/2022 1540 Gross per 24 hour Intake 500 ml Output -- Net 500 ml General: Alert, awake, no acute distress. HEENT: NC/AT, eyes anicteric, external occular movements intact, face symmetric. Cardiac: RRR, S1, S2. No murmurs appreciated. Pulmonary: Normal chest rise, normal work of breathing. Lungs CTA BL Abdomen: Tender to palpation in epigastrium and right upper quadrant. Otherwise soft, non-tender, non-distended. No guarding. Extremities: no deformities. Warm, well perfused. Skin: no rashes or lesions noted. Warm and Dry. Neuro: No focal deficits noted. Speech clear. Coordination and strength grossly normal. Psych: Appropriate affect. Medications: All current medications were reviewed with changes reflected in problem list. Data: All new lab and imaging data was reviewed. Labs: Recent Labs Lab 12/06/22 0620 NA 140 POTASSIUM 4.4 CHLORIDE 107 CO2 24 ANIONGAP 9 GLC 113* BUN 4.5* CR 0.88 GFRESTIMATED 74 ALISA 8.0* Recent Labs Lab 12/06/22 0620 12/03/22 0946 WBC -- 3.1* HGB -- 13.1 HCT -- 39.9 MCV -- 98 PLT 133* 184 Imaging: Results for orders placed or performed during the hospital encounter of 12/03/22 CT Chest Pulmonary Embolism w Contrast Narrative CT CHEST PULMONARY EMBOLISM WITH CONTRAST 12/03/2022 11:59 AM HISTORY: D-dimer elevated, chest pain, shortness of breath, abdominal tenderness, nausea, vomiting and diarrhea, elevated lipase. TECHNIQUE: Scans obtained from the apices through the diaphragm with IV contrast. 75 mL Isovue-370 IV injected. Radiation dose for this scan was reduced using automated exposure control, adjustment of the mA and/or kV according to patient size, or iterative reconstruction technique. 2D and 3D MIP reconstructions were performed by the medical technologist microbiology COMPARISON: Chest CT on 09/06/2022. FINDINGS: Chest/mediastinum: No evidence of pulmonary embolism. No cardiomegaly or significant pericardial effusion. Moderate atherosclerotic vascular calcification of the coronary arteries. No significant mediastinal or hilar lymphadenopathy. Lungs and pleura: No pleural effusion or pneumothorax. Bibasilar pulmonary opacities, likely atelectasis. Few scattered pulmonary nodules including for example 3 mm right upper lobe nodule (series 7 image 82), 6 mm right lower lobe subpleural nodule (series 7 image 169) and 4 mm posterior left lower lobe nodule (series 7 image 199), are not significantly changed as compared to 09/06/2022 exam. Upper abdomen: Limited evaluation of the upper abdomen due to lack of coverage and timing of contrast. Diffuse hypodense appearance of the liver, likely due to underlying hepatic steatosis. Scattered areas of coarse pancreatic calcification, likely sequela of chronic pancreatitis. Mild peripancreatic fat stranding, worrisome for acute pancreatitis. Bones and soft tissue: Partially visualized postsurgical changes of the lower cervical spine. No suspicious osseous lesion. Impression IMPRESSION: 1. No evidence of pulmonary embolism. 2. Mild basilar pulmonary opacities, likely atelectasis. 3. Mild peripancreatic fat stranding, worrisome for acute pancreatitis. Coarse pancreatic parenchymal calcification, likely sequela of chronic pancreatitis. 4. Hepatic steatosis. SHAWN IRELAND MD *Note: Due to a large number of results and/or encounters for the requested time period, some results have not been displayed. A complete set of results can be found in Results Review. Dimitri Harrell MD I've spent 50 minutes in chart review, ordering medications and tests, obtaining additional historyas needed, evaluating the patient and in documentation for this encounter. * Dimitri Harrell MD - 12/05/2022 8:24 AM CDT [facility] Hospitalist Progress Note Dimitri Harrell MD 12/05/22 Reason for Stay (Diagnosis): Pancreatitis Assessment and Plan: Summary of Stay: Kaila Hernandez is medically complex 61 year old female with history of chronic pancreatitis due to hypertriglyceridemia,COPD, hx C diff, HTN, neurogenic bladder with self cathing, hx of opioid dependence now on suboxone, MARIELLE but does not use CPAP, recent lumbar fusion, hypothyroidism, tobacco dependence and chronic pain admitted on 12/03/2022 with complaints of stomach pain, nausea, vomiting and diarrhea. ?? In the ED patient was afebrile with heart rate 79, pressure 167/91 and breathing comfortably on room air without hypoxia. In the ED creatinine 0.9, elevated anion gap at 18, normal electrolytes with the exception of chloride at 95, LFT elevation with ALP 168 and AST 49 but otherwise normal LFTs. Glucose elevated at 275, lipase elevated at 220, BNP 225, high-sensitivity troponin of 21 with 2- hour repeat of 19, TSH elevated at 22.03 with free T4 low at 0.74 and CBC remarkable for low WBC at 3.1 but otherwise normal hemoglobin and platelet count. D-dimer elevated at 2.08, UA is contaminated withlarge amount of squamous epithelial cells so difficult to interpret and CT chest with PE protocol is negative for PE but does show mild basilar pulmonary opacities likely atelectasis and mild peripancreatic fat stranding worrisome for acute pancreatitis with hepatic steatosis. She was given a 500 mL bolus along with aspirin, Zofran and Dilaudid and admitted for further care. Has had worsening diarrhea, some concern for C. difficile given her history. Checking stool studies. ?? #Acute on chronic pancreatitis -History of chronic pancreatitis due to hypertriglyceridemia but does drink alcohol occasionally -Admits to last alcoholic beverage being 4 to 5 days ago which correlates with onset of symptoms -Lipase elevated at [address] scan of chest shows fat stranding around pancreas suggestive of inflammation -Continue maintenance fluids, reduced to 125 mL/h. -Triglyceride level grossly normal. -N.p.o. except for meds and ice chips -Dilaudid IV will be available for pain for at least 1 day more. -Discussed with patient that alcohol cessation is important -Okay for limited quantity of Toradol, allergy is remote history of GI bleeding. On a PPI as well. ?? #Urinary symptoms #History of neurogenic bladder -Patient reports that she straight caths approximately 4 times a day after attempting to urinate -Urine analysis appears to be negative for infection. ?? #DM II -Glucose elevated upon presentation at 275 with last A1c 6.5 in 10/2022 -Given NPO status will reduce Glargine to 5 units daily -ISS for NPO status ? #History of C. difficile colitis with recent treatment -She does report diarrhea but abdominal complaints can be explained with pancreatitis -Send C. difficile PCR and enteric studies given worsening diarrhea. May need to reinitiate treatment dose vancomycin ?? #Chronic pain with history of opioid use disorder -Continue Suboxone and treat acute pain with additional narcotics as needed as above as well as nonnarcotic medications ?? #Elevated troponin -Pain complaints seem to be localized to stomach without any chest pain or shortness of breath -Troponin x2 is mildly elevated at 21 and 19 but flat -No further work-up warranted ?? #Hypertension -Continue Amlodipine ?? #Tobacco use -Patient plans to quit in the near future -Ordered nicotine patch ?? 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 #Mildly elevated ALP and AST -Suspect due to hepatic steatosis but will recheck tomorrow ?? #History of COPD -Denies shortness of breath and cough with clear lungs ?? #History of MARIELLE noncompliant with CPAP ?? #Depression -Continue Rexulti, Clonazepam, Desvenlafaxine and Risperidone ? Diet: NPO except for meds/ice chips DVT Prophylaxis: Enoxaparin (Lovenox) SQ Mello Catheter: Not present Lines: None Cardiac Monitoring: None Code Status: Full code Clinically Significant Risk Factors # Hypomagnesemia: Lowest Mg = 1.5 mg/dL in last 2 days, will replace as needed # Hypoalbuminemia: Lowest albumin = 2.7 g/dL at 12/05/2022 5:59 AM, will monitor as appropriate # Hypertension: Noted on problem list # DMII: A1C = 6.5 % (Ref range: <5.7 %) within past 6 months # Obesity: Estimated body mass index is 34.97 kg/m?? as calculated from the following: Height as of this encounter: 1.727 m (5' 8). Weight as of this encounter: 104.3 kg (230 lb)., PRESENT ON ADMISSION Interval History (Subjective): Reducing IVF rate Appears more comfortable, still reporting significant pain Having frequent loose stools, some concern about relapse of her recent C. difficile infection. Sending stool studies Physical Exam: Last Vital Signs: BP 136/79 (BP Location: Right arm, Cuff Size: Adult Regular) Pulse 62 Temp 98 ??F (36.7 ??C) (Temporal) Resp 18 Ht 1.727 m (5' 8) Wt 104.3 kg (230 lb) LMP (LMP Unknown) SpO2 95% BMI 34.97 kg/m?? Intake/Output Summary (Last 24 hours) at 12/04/2022 1232 Last data filed at 12/03/2022 1540 Gross per 24 hour Intake 500 ml Output -- Net 500 ml General: Alert, awake, no acute distress. HEENT: NC/AT, eyes anicteric, external occular movements intact, face symmetric. Cardiac: RRR, S1, S2. No murmurs appreciated. Pulmonary: Normal chest rise, normal work of breathing. Lungs CTA BL Abdomen: Tender to palpation in epigastrium and right upper quadrant. Otherwise soft, non-tender, non-distended. No guarding. Extremities: no deformities. Warm, well perfused. Skin: no rashes or lesions noted. Warm and Dry. Neuro: No focal deficits noted. Speech clear. Coordination and strength grossly normal. Psych: Appropriate affect. Medications: All current medications were reviewed with changes reflected in problem list. Data: All new lab and imaging data was reviewed. Labs: Recent Labs Lab 12/05/22 0559 NA 140 POTASSIUM 4.0 CHLORIDE 108* CO2 26 ANIONGAP 6* GLC 138* BUN 4.1* CR 0.84 GFRESTIMATED 78 ALISA 7.9* Recent Labs Lab 12/03/22 0946 WBC 3.1* HGB 13.1 HCT 39.9 MCV 98 PLT 184 Imaging: Results for orders placed or performed during the hospital encounter of 12/03/22 CT Chest Pulmonary Embolism w Contrast Narrative CT CHEST PULMONARY EMBOLISM WITH CONTRAST 12/03/2022 11:59 AM HISTORY: D-dimer elevated, chest pain, shortness of breath, abdominal tenderness, nausea, vomiting and diarrhea, elevated lipase. TECHNIQUE: Scans obtained from the apices through the diaphragm with IV contrast. 75 mL Isovue-370 IV injected. Radiation dose for this scan was reduced using automated exposure control, adjustment of the mA and/or kV according to patient size, or iterative reconstruction technique. 2D and 3D MIP reconstructions were performed by the medical technologist microbiology COMPARISON: Chest CT on 09/06/2022. FINDINGS: Chest/mediastinum: No evidence of pulmonary embolism. No cardiomegaly or significant pericardial effusion. Moderate atherosclerotic vascular calcification of the coronary arteries. No significant mediastinal or hilar lymphadenopathy. Lungs and pleura: No pleural effusion or pneumothorax. Bibasilar pulmonary opacities, likely atelectasis. Few scattered pulmonary nodules including for example 3 mm right upper lobe nodule (series 7 image 82), 6 mm right lower lobe subpleural nodule (series 7 image 169) and 4 mm posterior left lower lobe nodule (series 7 image 199), are not significantly changed as compared to 09/06/2022 exam. Upper abdomen: Limited evaluation of the upper abdomen due to lack of coverage and timing of contrast. Diffuse hypodense appearance of the liver, likely due to underlying hepatic steatosis. Scattered areas of coarse pancreatic calcification, likely sequela of chronic pancreatitis. Mild peripancreatic fat stranding, worrisome for acute pancreatitis. Bones and soft tissue: Partially visualized postsurgical changes of the lower cervical spine. No suspicious osseous lesion. Impression IMPRESSION: 1. No evidence of pulmonary embolism. 2. Mild basilar pulmonary opacities, likely atelectasis. 3. Mild peripancreatic fat stranding, worrisome for acute pancreatitis. Coarse pancreatic parenchymal calcification, likely sequela of chronic pancreatitis. 4. Hepatic steatosis. SHAWN IRELAND MD *Note: Due to a large number of results and/or encounters for the requested time period, some results have not been displayed. A complete set of results can be found in Results Review. Dimitri Harrell MD I've spent 50 minutes in chart review, ordering medications and tests, obtaining additional historyas needed, evaluating the patient and in documentation for this encounter. * Dimitri Harrell MD - 12/04/2022 12:30 PM CDT [facility] Hospitalist Progress Note Dimitri Harrell MD 12/04/22 Reason for Stay (Diagnosis): Pancreatitis Assessment and Plan: Summary of Stay: Kaila Hernandez is medically complex 61 year old female with history of chronic pancreatitis due to hypertriglyceridemia,COPD, hx C diff, HTN, neurogenic bladder with self cathing, hx of opioid dependence now on suboxone, MARIELLE but does not use CPAP, recent lumbar fusion, hypothyroidism, tobacco dependence and chronic pain admitted on 12/03/2022 with complaints of stomach pain, nausea, vomiting and diarrhea. ?? In the ED patient was afebrile with heart rate 79, pressure 167/91 and breathing comfortably on room air without hypoxia. In the ED creatinine 0.9, elevated anion gap at 18, normal electrolytes with the exception of chloride at 95, LFT elevation with ALP 168 and AST 49 but otherwise normal LFTs. Glucose elevated at 275, lipase elevated at 220, BNP 225, high-sensitivity troponin of 21 with 2- hour repeat of 19, TSH elevated at 22.03 with free T4 low at 0.74 and CBC remarkable for low WBC at 3.1 but otherwise normal hemoglobin and platelet count. D-dimer elevated at 2.08, UA is contaminated withlarge amount of squamous epithelial cells so difficult to interpret and CT chest with PE protocol is negative for PE but does show mild basilar pulmonary opacities likely atelectasis and mild peripancreatic fat stranding worrisome for acute pancreatitis with hepatic steatosis. She was given a 500 mL bolus along with aspirin, Zofran and Dilaudid and admitted for further care. ?? #Acute on chronic pancreatitis -History of chronic pancreatitis due to hypertriglyceridemia but does drink alcohol occasionally -Admits to last alcoholic beverage being 4 to 5 days ago which correlates with onset of symptoms -Lipase elevated at [address] scan of chest shows fat stranding around pancreas suggestive of inflammation -Continue maintenance fluids at 200 mL/h. -Triglyceride level grossly normal. -N.p.o. except for meds and ice chips -Dilaudid IV will be available for pain -Discussed with patient that alcohol cessation is important -Okay for limited quantity of Toradol, allergy is remote history of GI bleeding. On a PPI as well. ?? #Urinary symptoms #History of neurogenic bladder -Patient reports that she straight caths approximately 4 times a day after attempting to urinate -Urine analysis appears to be negative for infection. ?? #DM II -Glucose elevated upon presentation at 275 with last A1c 6.5 in 10/2022 -Given NPO status will reduce Glargine to 5 units daily -ISS for NPO status ? #History of C. difficile colitis with recent treatment -She does report diarrhea but abdominal complaints can be explained with pancreatitis -We will leave on enteric precautions for now and if she has diarrhea plan to send sample for C. difficile testing ?? #Chronic pain with history of opioid use disorder -Continue Suboxone and treat acute pain with additional narcotics as needed as above as well as nonnarcotic medications ?? #Elevated troponin -Pain complaints seem to be localized to stomach without any chest pain or shortness of breath -Troponin x2 is mildly elevated at 21 and 19 but flat -No further work-up warranted ?? #Hypertension -Continue Amlodipine ?? #Tobacco use -Patient plans to quit in the near future -Ordered nicotine patch ?? 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 #Mildly elevated ALP and AST -Suspect due to hepatic steatosis but will recheck tomorrow ?? #History of COPD -Denies shortness of breath and cough with clear lungs ?? #History of MARIELLE noncompliant with CPAP ?? #Depression -Continue Rexulti, Clonazepam, Desvenlafaxine and Risperidone ? Diet: NPO except for meds/ice chips DVT Prophylaxis: Enoxaparin (Lovenox) SQ Mello Catheter: Not present Lines: None Cardiac Monitoring: None Code Status: Full code Clinically Significant Risk Factors Present on Admission # Hypoalbuminemia: Lowest albumin = 3.1 g/dL at 12/04/2022 7:03 AM, will monitor as appropriate # Drug Induced Platelet Defect: home medication list includes an antiplatelet medication # Hypertension: Noted on problem list # DMII: A1C = 6.5 % (Ref range: <5.7 %) within past 6 months # Obesity: Estimated body mass index is 34.97 kg/m?? as calculated from the following: Height as of this encounter: 1.727 m (5' 8). Weight as of this encounter: 104.3 kg (230 lb). Interval History (Subjective): Still having fairly severe pain, feels nauseated as well Increasing maintenance fluids to 200 cc/h Increasing sitting up to 1 mg, she is on Suboxone and likely will need increased dosing Physical Exam: Last Vital Signs: BP 125/73 Pulse 80 Temp 97.8 ??F (36.6 ??C) (Temporal) Resp 16 Ht 1.727 m (5' 8) Wt 104.3 kg (230 lb) LMP (LMP Unknown) SpO2 94% BMI 34.97 kg/m?? Intake/Output Summary (Last 24 hours) at 12/04/2022 1232 Last data filed at 12/03/2022 1540 Gross per 24 hour Intake 500 ml Output -- Net 500 ml General: Alert, awake, no acute distress. HEENT: NC/AT, eyes anicteric, external occular movements intact, face symmetric. Cardiac: RRR, S1, S2. No murmurs appreciated. Pulmonary: Normal chest rise, normal work of breathing. Lungs CTA BL Abdomen: Tender to palpation in epigastrium and right upper quadrant. Otherwise soft, non-tender, non-distended. No guarding. Extremities: no deformities. Warm, well perfused. Skin: no rashes or lesions noted. Warm and Dry. Neuro: No focal deficits noted. Speech clear. Coordination and strength grossly normal. Psych: Appropriate affect. Medications: All current medications were reviewed with changes reflected in problem list. Data: All new lab and imaging data was reviewed. Labs: Recent Labs Lab 12/04/22 1001 12/04/22 0703 NA -- 139 POTASSIUM -- 3.6 CHLORIDE -- 103 CO2 -- 26 ANIONGAP -- 10 GLC 170* 168* BUN -- 5.6* CR -- 0.81 GFRESTIMATED -- 82 ALISA -- 7.6* Recent Labs Lab 12/03/22 0946 WBC 3.1* HGB 13.1 HCT 39.9 MCV 98 PLT 184 Imaging: Results for orders placed or performed during the hospital encounter of 12/03/22 CT Chest Pulmonary Embolism w Contrast Narrative CT CHEST PULMONARY EMBOLISM WITH CONTRAST 12/03/2022 11:59 AM HISTORY: D-dimer elevated, chest pain, shortness of breath, abdominal tenderness, nausea, vomiting and diarrhea, elevated lipase. TECHNIQUE: Scans obtained from the apices through the diaphragm with IV contrast. 75 mL Isovue-370 IV injected. Radiation dose for this scan was reduced using automated exposure control, adjustment of the mA and/or kV according to patient size, or iterative reconstruction technique. 2D and 3D MIP reconstructions were performed by the medical technologist microbiology COMPARISON: Chest CT on 09/06/2022. FINDINGS: Chest/mediastinum: No evidence of pulmonary embolism. No cardiomegaly or significant pericardial effusion. Moderate atherosclerotic vascular calcification of the coronary arteries. No significant mediastinal or hilar lymphadenopathy. Lungs and pleura: No pleural effusion or pneumothorax. Bibasilar pulmonary opacities, likely atelectasis. Few scattered pulmonary nodules including for example 3 mm right upper lobe nodule (series 7 image 82), 6 mm right lower lobe subpleural nodule (series 7 image 169) and 4 mm posterior left lower lobe nodule (series 7 image 199), are not significantly changed as compared to 09/06/2022 exam. Upper abdomen: Limited evaluation of the upper abdomen due to lack of coverage and timing of contrast. Diffuse hypodense appearance of the liver, likely due to underlying hepatic steatosis. Scattered areas of coarse pancreatic calcification, likely sequela of chronic pancreatitis. Mild peripancreatic fat stranding, worrisome for acute pancreatitis. Bones and soft tissue: Partially visualized postsurgical changes of the lower cervical spine. No suspicious osseous lesion. Impression IMPRESSION: 1. No evidence of pulmonary embolism. 2. Mild basilar pulmonary opacities, likely atelectasis. 3. Mild peripancreatic fat stranding, worrisome for acute pancreatitis. Coarse pancreatic parenchymal calcification, likely sequela of chronic pancreatitis. 4. Hepatic steatosis. SHAWN IRELAND MD *Note: Due to a large number of results and/or encounters for the requested time period, some results have not been displayed. A complete set of results can be found in Results Review. Dimitri Harrell MD I've spent 50 minutes in chart review, ordering medications and tests, obtaining additional historyas needed, evaluating the patient and in documentation for this encounter. * Dee Gonzalez RN - 12/04/2022 11:43 AM CDT Care Management Follow Up Length of Stay (days): 1 Expected Discharge Date: 12/05/2022 Concerns to be Addressed: Patient plan of care discussed at interdisciplinary rounds: Yes Anticipated Discharge Disposition: home Anticipated Discharge Services: Anticipated Discharge DME: Patient/family educated on Medicare website which has current facility and service quality ratings:NA Education Provided on the Discharge Plan: no Patient/Family in Agreement with the Plan: unable to assess. Referrals Placed by CM/SW: none Private pay costs discussed: Not applicable Additional Information: Patient admitted for acute pancreatitis. Case Management completed chart review and no needs identified. Pt admitted with pancreatitis, noted to have unplanned readmission risk of 40%. No needs identified at this time. Please contact CM if any new needs should arise. Leilani Gonzalez RN, BSN, CM Inpatient Care Coordination [facility] [phone] documented in this encounter H&P Notes * Raquel Rahman PA-C - 12/03/2022 2:47 PM CDT [facility] History and Physical - Hospitalist Service Date of Admission: 12/03/2022 Assessment & Plan Kaila Hernandez is medically complex 61 year old female with history of chronic pancreatitisdue to hypertriglyceridemia,COPD, hx C diff, HTN, neurogenic bladder with self cathing, hx of opioid dependence now on suboxone, MARIELLE but does not use CPAP, recent lumbar fusion, hypothyroidism, tobacco dependence and chronic pain admitted on 12/03/2022 with complaints of stomach pain, nausea, vomiting and diarrhea. In the ED patient was afebrile with heart rate 79, pressure 167/91 and breathing comfortably on room air without hypoxia. In the ED creatinine 0.9, elevated anion gap at 18, normal electrolytes with the exception of chloride at 95, LFT elevation with ALP 168 and AST 49 but otherwise normal LFTs. Glucose elevated at 275, lipase elevated at 220, BNP 225, high-sensitivity troponin of 21 with 2- hour repeat of 19, TSH elevated at 22.03 with free T4 low at 0.74 and CBC remarkable for low WBC at 3.1 but otherwise normal hemoglobin and platelet count. D-dimer elevated at 2.08, UA is contaminated withlarge amount of squamous epithelial cells so difficult to interpret and CT chest with PE protocol is negative for PE but does show mild basilar pulmonary opacities likely atelectasis and mild peripancreatic fat stranding worrisome for acute pancreatitis with hepatic steatosis. She was given a 500 mL bolus along with aspirin, Zofran and Dilaudid with request for admission. #Acute on chronic pancreatitis -History of chronic pancreatitis due to hypertriglyceridemia but does drink alcohol occasionally -Admits to last alcoholic beverage being 4 to 5 days ago which correlates with onset of symptoms -Lipase elevated at [address] scan of chest shows fat stranding around pancreas suggestive of inflammation -We will receive a total of a liter of fluids in the ED and then LR at 125 mL/h -Add triglyceride level -N.p.o. except for meds and ice chips -Dilaudid IV will be available for pain -Discussed with patient that alcohol cessation is important #Urinary symptoms #History of neurogenic bladder -Patient reports that she straight caths approximately 4 times a day after attempting to urinate -She suspects a UTI because she is not able to urinate as much prior to straight cath -Initial UA in the ED is contaminated -We will order a straight cath UA and if concerning for infection start antibiotic, if antibiotic is started recommend prophylactic vancomycin #DM II -Glucose elevated at 275 with last A1c 6.5 in 10/2022 -Given NPO status will reduce Glargine to 5 units daily -ISS for NPO status #History of C. difficile colitis with recent treatment -She does report diarrhea but abdominal complaints can be explained with pancreatitis -We will leave on enteric precautions for now and if she has diarrhea plan to send sample for C. 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 despite elevated TSH and low T4 with numbers slowly improving -Continue current dosing #Mildly elevated ALP and AST -Suspect due to hepatic steatosis but will recheck tomorrow #History of COPD -Denies shortness of breath and cough with clear lungs #History of MARIELLE noncompliant with CPAP #Depression -Continue Rexulti, Clonazepam, Desvenlafaxine and Risperidone Diet: NPO except for meds/ice chips DVT Prophylaxis: Enoxaparin (Lovenox) SQ Mello Catheter: Not present Lines: None Cardiac Monitoring: None Code Status: Full code Clinically Significant Risk Factors Present on Admission # Hypocalcemia: Lowest Ca = 8.2 mg/dL in last 2 days, will monitor and replace as appropriate # Drug Induced Platelet Defect: home medication list includes an antiplatelet medication # Hypertension: Noted on problem list # DMII: A1C = 6.5 % (Ref range: <5.7 %) within past 6 months # Obesity: Estimated body mass index is 34.97 kg/m?? as calculated from the following: Height as of this encounter: 1.727 m (5' 8). Weight as of this encounter: 104.3 kg (230 lb). Disposition Plan Expected Discharge Date: 12/05/2022 The patient's care was discussed with the Attending Physician, Dr. Awad, Patient and ED [employer] Raquel Rahman PA-C Hospitalist Service [facility] Securely message with [employer] (more info) Text page via [facility] Paging/Directory Chief Complaint Abdominal pain, nausea, vomiting and diarrhea History of Present Illness Kaila Hernandez is a 61 year old female who presents with 4 to 5 days of diffuse abdominal pain that is constant in varying degrees of severity that radiates to her back along with nausea, vomiting and diarrhea. There is no blood in her diarrhea. She has felt chilled but has not taken her temperature. She denies shortness of breath, cough and chest discomfort. Due to the symptoms she has not eaten or drank much nor taken her normal medicines. She is able to urinate on her own but does straight cath after she attempts to pee and notes that she is not able to get out much urine which is unusual for her. She continues to smoke 3/4 pack of cigarettes a day and occasionally drinks alcohol. She actually had 2 hard liquor beverages for 5 days ago prior to the onset of symptoms. She was recently treated for C. difficile. Past Medical History Past Medical History: Diagnosis Date ??? Anemia pernicous anemia ??? Benzodiazepine dependence (H) ??? C. difficile colitis ??? Chronic infection C-diff since 2006 ??? Chronic pain Dr. Benites ??? COPD (chronic obstructive pulmonary disease) (H) ??? Degeneration of intervertebral disc, site unspecified abstracted 12/26/01 ??? Diabetic neuropathy (H) ??? Esophageal reflux abstracted 12/26/01 ??? Generalized anxiety disorder ??? History of blood transfusion ??? History of Clostridium difficile colitis 08/10/2020 ??? Hypertension ??? Hypertriglyceridemia ??? Malabsorption ? Nephrolithiasis ??? Neurogenic bladder intermittent straight cath ??? Obese ??? Opioid dependence (H) ??? MARIELLE (obstructive sleep apnea) ??? Other chronic pain Back and neck ??? Port-A-Cath in place 08/10/2020 ??? Recurrent pancreatitis ??? Sleep apnea no CPAP ??? Stress-induced cardiomyopathy ??? Syncope ??? Tobacco dependence ??? Transaminitis 04/22/2018 ??? Unspecified hereditary and idiopathic peripheral neuropathy abstracted 12/26/01 ??? Unspecified hypothyroidism age 15 sp radiactive treatment ([place]) ??? Vitamin B12 deficiency ??? Vitamin D deficiency Past Surgical History Past Surgical History: Procedure Laterality Date ??? APPENDECTOMY OPEN ??? ARTHROPLASTY HIP Right 08/06/2020 Procedure: Right total hip arthroplasty; Surgeon: Lencho Mayo MD; Location: OR ??? ARTHROSCOPY ANKLE Right 12/13/2017 Procedure: RIGHT ANKLE ARTHROSCOPY; Surgeon: Jovany Gonzalez MD; Location: [facility] Main OR;Service: ??? BACK SURGERY Lumbar and cervical ??? CARDIAC CATHETERIZATION ??? COLONOSCOPY N/A 10/20/2015 Procedure: COMBINED COLONOSCOPY, SINGLE OR MULTIPLE BIOPSY/POLYPECTOMY BY BIOPSY; Surgeon: Kwaku Colón MD; Location: [facility] ??? COLONOSCOPY N/A 05/09/2017 Procedure: COLONOSCOPY;; Surgeon: Lindsay Juares MD; Location: [facility] OR ??? COLONOSCOPY N/A 10/28/2022 Procedure: COLONOSCOPY with biopsies; Surgeon: Jeffry Baxter MD; Location: [facility] OR ??? CYSTOCELE REPAIR ??? DISCECTOMY, FUSION CERVICAL ANTERIOR ONE LEVEL, COMBINED N/A 05/18/2021 Procedure: Anterior cervical discectomy and fusion, cervical 4-5; Surgeon: Wesley Barrett MD; Location: [facility] ??? ESOPHAGOSCOPY, GASTROSCOPY, DUODENOSCOPY (EGD), COMBINED N/A 05/09/2017 Procedure: COMBINED ESOPHAGOSCOPY, GASTROSCOPY, DUODENOSCOPY (EGD); ESOPHAGOSCOPY, GASTROSCOPY, DUODENOSCOPY (EGD) with biopsies, COLONOSCOPY; Surgeon: Lindsay Juares MD; Location: [facility] ??? ESOPHAGOSCOPY, GASTROSCOPY, DUODENOSCOPY (EGD), COMBINED N/A 09/06/2018 Procedure: COMBINED ENDOSCOPIC ULTRASOUND, ESOPHAGOSCOPY, GASTROSCOPY, DUODENOSCOPY (EGD); Surgeon:Zee Sims MD; Location: [facility] ??? ESOPHAGOSCOPY, GASTROSCOPY, DUODENOSCOPY (EGD), COMBINED N/A 05/07/2019 Procedure: ESOPHAGOGASTRODUODENOSCOPY, WITH ENDOSCOPIC ULTRASOUND GUIDANCE; Surgeon: Yaya Washington MD; Location: [facility] ??? ESOPHAGOSCOPY, GASTROSCOPY, DUODENOSCOPY (EGD), COMBINED 07/11/2016 ??? FUSION CERVICAL ANTERIOR ONE LEVEL ??? HYSTERECTOMY VAGINAL part of ovary is still in ??? INCISION AND DRAINAGE HIP, COMBINED Right 08/20/2020 Procedure: Right hip irrigation, debridement and evacuation of hematoma; Surgeon: Lencho Mayo MD;Location: [facility] OR ??? INSERT PUMP MORPHINE ??? IR PORT REMOVAL RIGHT 08/12/2020 ??? LAMINECTOMY LUMBAR TWO LEVELS Bilateral 11/10/2021 Procedure: Lumbar Laminectomy Lumbar 4 to Sacral 1 with Foraminotomy; Surgeon: Wesley Barrett MD; Location: [facility] ??? LAPAROSCOPIC CHOLECYSTECTOMY 2011 ??? OPEN REDUCTION INTERNAL FIXATION FIBULA Right 02/08/2017 ??? OTHER SURGICAL HISTORY INSERT PUMP MORPHINEand removal ??? RECONSTRUCT ANKLE Right 12/13/2017 Procedure: LATERAL LIGAMENT AND CALCANEAL CUBOID LIGAMENT RECONSTRUCTION, DYNAMIZE AND BONE GRAFT FIBULAR FRACTURE; Surgeon: Jovany Gonzalez MD; Location: [facility]; Service: ??? rectocele and cystocel repairs ??? REMOVE HARDWARE LOWER EXTREMITY Right 12/13/2017 Procedure: REMOVAL OF SYNDESMOSIS SCREWS, SUHAS; Surgeon: Jovany Gonzalez MD; Location: [facility]; Service: ??? REPAIR RECTOCELE ??? TONSILLECTOMY ??? ZZC NONSPECIFIC PROCEDURE 06/2001 Colonoscopy - neg -- abstracted 12/26/01 Prior to Admission Medications Prior to Admission Medications Prescriptions Last Dose Informant Patient Reported? Taking? Continuous Blood Gluc Wringer Operator (DEXCOM G6 PROSTHETICS ASSISTANT) [facility] at [facility] No No Sig: USE DAILY Continuous Blood Gluc Sensor (DEXCOM G6 SENSOR) [facility] at [facility] No No Sig: USE 1 SENSOR EVERY 10 DAYS Continuous Blood Gluc Transmit (DEXCOM G6 TRANSMITTER) [facility] DME at [facility] No No Sig: Change every 3 months to continuously monitor blood glucose. EPINEPHrine (ANY BX GENERIC EQUIV) 0.3 MG/0.3ML injection 2-pack prn No No Sig: Inject 0.3 mLs (0.3 mg) into the muscle as needed for anaphylaxis (EPI-PEN) Potassium Gluconate 595 MG CAPS Past Week Yes Yes Sig: Take 1 capsule by mouth daily Vitamin D3 (VITAMIN D, CHOLECALCIFEROL,) 25 mcg (1000 units) tablet Past Week at - Yes Yes Sig: Take 1 tablet by mouth daily albuterol (PROAIR HFA/PROVENTIL HFA/VENTOLIN HFA) 108 (90 Base) MCG/ACT inhaler More than a month at - No Yes Sig: Inhale 2 puffs into the lungs every 4 hours as needed for shortness of breath / dyspnea or wheezing amLODIPine (NORVASC) 10 MG tablet Past Week at - No Yes Sig: Take 1 tablet (10 mg) by mouth daily aspirin 81 MG EC tablet Past Week at - Yes Yes Sig: Take 81 mg by mouth daily brexpiprazole (REXULTI) 2 MG tablet Past Week at - Yes Yes Sig: Take 2 mg by mouth daily buprenorphine HCl-naloxone HCl (SUBOXONE) 2-0.5 MG per film Past Week at - No Yes Sig: Place 1 Film under the tongue 3 times daily OK to fill 11/27/22 start 11/29/22. May refill every 30 days. calcium carbonate (OS-ALISA) 1500 (600 Ca) MG tablet Past Week at - Yes Yes Sig: Take 1 tablet (600 mg) by mouth 2 times daily (with meals) clonazePAM (KLONOPIN) 1 MG tablet Past Week at - Yes Yes Sig: Take 1 mg by mouth 2 times daily colestipol (COLESTID) 1 g tablet Past Week at - Pharmacy Yes Yes Sig: Take 1 tablet by mouth 2 times daily cyanocobalamin (CYANOCOBALAMIN) 1000 MCG/ML injection 2 weeks ago at 2 weeks ago No Yes Sig: INJECT 1 ML (1000 MCG) INTRAMUSCULARLY EVERY 30 DAYS. DISCARD 28 DAYS AFTERFIRST USE Strength:1,000 mcg/mL desvenlafaxine (PRISTIQ) 100 MG 24 hr tablet Past Week at - No Yes Sig: TAKE 1 TABLET BY MOUTH EVERY DAY desvenlafaxine (PRISTIQ) 50 MG 24 hr tablet Past Week at - No Yes Sig: TAKE 1 TABLET BY MOUTH ONCE DAILY TAKE WITH 100MG TABS FOR A TOTAL DAILY DOSE OF 150MGS fenofibrate (TRICOR) 48 MG tablet Past Week at - No Yes Sig: Take 1 tablet (48 mg) by mouth daily ferrous sulfate (FEROSUL) 325 (65 Fe) MG tablet Past Week at - Yes Yes Sig: Take 325 mg by mouth daily (with breakfast) hydrOXYzine (ATARAX) 25 MG tablet Past Week Yes Yes Sig: Take 25 mg by mouth 4 times daily insulin aspart (NOVOLOG FLEXPEN) 100 UNIT/ML pen Past Week at - No Yes Sig: INJECT 1 UNIT FOR 50 POINTS ABOVE 150 WITH EACH MEAL (TOTAL DAILY DOSE 10- 15 UNITS PER DAY) insulin glargine (BASAGLAR KWIKPEN) 100 UNIT/ML pen 4 days ago at 4 days ago No No Sig: Inject 10 Units Subcutaneous every morning levothyroxine (SYNTHROID/LEVOTHROID) 175 MCG tablet Past Week at - No Yes Sig: Take 2 tablets (350 mcg) by mouth daily methocarbamol (ROBAXIN) 500 MG tablet Past Week at - No Yes Sig: Take 2 tablets (1,000 mg) by mouth 4 times daily metoprolol tartrate (LOPRESSOR) 25 MG tablet Past Week at - No Yes Sig: TAKE 1 TABLET BY MOUTH TWICE A DAY naloxone (NARCAN) 4 MG/0.1ML nasal spray prn at prn No No Sig: [place] 1 spray (4 mg) into one nostril alternating nostrils once as needed for opioid reversal nitroGLYcerin (NITROSTAT) 0.4 MG sublingual tablet prn at prn Self No No Sig: Place 1 tablet (0.4 mg) under the tongue every 5 minutes as needed for chest pain nystatin (MYCOSTATIN) [id number] UNIT/GM external ointment prn at prn Yes No Sig: Apply topically 2 times daily as needed omega-3 acid ethyl esters (LOVAZA) 1 g capsule Past Week at - No Yes Sig: TAKE 2 CAPSULES BY MOUTH TWICE A DAY ondansetron (ZOFRAN) 8 MG tablet prn at prn No No Sig: Take 1 tablet (8 mg) by mouth every 8 hours as needed for nausea pantoprazole (PROTONIX) 40 MG EC tablet Past Week at - No Yes Sig: Take 1 tablet (40 mg) by mouth daily risperiDONE (RISPERDAL M-TABS) 0.5 MG ODT Past Week Yes Yes Sig: Place 0.5 mg under the tongue every morning rosuvastatin (CRESTOR) 40 MG tablet Past Week at - No Yes Sig: Take 1 tablet (40 mg) by mouth daily simethicone (MYLICON) 80 MG chewable tablet prn at prn No No Sig: Take 1 tablet (80 mg) by mouth every 6 hours as needed for flatulence or cramping Facility-Administered Medications: None Physical Exam Vital Signs: Temp: 98.3 ??F (36.8 ??C) Temp src: Oral BP: (!) 168/96 Pulse: 79 Resp: 20 SpO2: 94 % O2 Device: None (Room air) Weight: 230 lbs 0 oz General Appearance: Alert and oriented x3 Respiratory: Clear to auscultation bilaterally Cardiovascular: RRR without murmur GI: Bowel sounds are present with diffuse tenderness throughout Skin: No rashes or open sores are noted Other: Right arm appears slightly swollen and she reports to be that IV infiltrated earlier Medical Decision Making 55 MINUTES SPENT BY ME on the date of service doing chart review, history, exam, documentation & further activities per the note. Data I have personally reviewed the following data over the past 24 hrs: 3.1 (L) \ 13.1 / 184 136 95 (L) 10.8 / 275 (H) 4.8 23 0.90 \ ALT: 29 AST: 49 (H) AP: 168 (H) TBILI: 0.5 ALB: 3.5 TOT PROTEIN: 6.5 LIPASE: 220 (H) Trop: 19 (H) BNP: 225 TSH: 22.03 (H) T4: 0.74 (L) A1C: N/A INR: N/A PTT: N/A D-dimer: 2.08 (H) Fibrinogen: N/A Imaging results reviewed over the past 24 hrs: Recent Results (from the past 24 hour(s)) CT Chest Pulmonary Embolism w Contrast Narrative CT CHEST PULMONARY EMBOLISM WITH CONTRAST 12/03/2022 11:59 AM HISTORY: D-dimer elevated, chest pain, shortness of breath, abdominal tenderness, nausea, vomiting and diarrhea, elevated lipase. TECHNIQUE: Scans obtained from the apices through the diaphragm with IV contrast. 75 mL Isovue-370 IV injected. Radiation dose for this scan was reduced using automated exposure control, adjustment of the mA and/or kV according to patient size, or iterative reconstruction technique. 2D and 3D MIP reconstructions were performed by the medical technologist microbiology COMPARISON: Chest CT on 09/06/2022. FINDINGS: Chest/mediastinum: No evidence of pulmonary embolism. No cardiomegaly or significant pericardial effusion. Moderate atherosclerotic vascular calcification of the coronary arteries. No significant mediastinal or hilar lymphadenopathy. Lungs and pleura: No pleural effusion or pneumothorax. Bibasilar pulmonary opacities, likely atelectasis. Few scattered pulmonary nodules including for example 3 mm right upper lobe nodule (series 7 image 82), 6 mm right lower lobe subpleural nodule (series 7 image 169) and 4 mm posterior left lower lobe nodule (series 7 image 199), are not significantly changed as compared to 09/06/2022 exam. Upper abdomen: Limited evaluation of the upper abdomen due to lack of coverage and timing of contrast. Diffuse hypodense appearance of the liver, likely due to underlying hepatic steatosis. Scattered areas of coarse pancreatic calcification, likely sequela of chronic pancreatitis. Mild peripancreatic fat stranding, worrisome for acute pancreatitis. Bones and soft tissue: Partially visualized postsurgical changes of the lower cervical spine. No suspicious osseous lesion. Impression IMPRESSION: 1. No evidence of pulmonary embolism. 2. Mild basilar pulmonary opacities, likely atelectasis. 3. Mild peripancreatic fat stranding, worrisome for acute pancreatitis. Coarse pancreatic parenchymal calcification, likely sequela of chronic pancreatitis. 4. Hepatic steatosis. SHAWN IRELAND MD Associated attestation - Oswaldo Awad DO - 12/04/2022 7:48 AM CDT Physician Attestation I have reviewed and discussed with the advanced practice provider their history, physical and plan for Kaila Hernandez. I did not participate in a shared visit by interviewing or examining thepatient and this should be billed as an advanced practice provider only visit. Oswaldo Awad DO Date of Service (when I saw the patient): I did not personally see this patient today. documented in this encounter ED Notes * Lillian Michele, RN - 12/03/2022 2:26 PM CDT [facility] ED Nurse Handoff Report ED Chief complaint: Chest Pain . ED Diagnosis: Final diagnoses: Acute on chronic pancreatitis (H) Chest pain, unspecified type Elevated troponin Hyperglycemia Hepatic steatosis Pulmonary nodules Hypothyroidism, unspecified type Allergies: Allergies Allergen Reactions ??? Bees Anaphylaxis ??? Levaquin [Levofloxacin Hemihydrate] Rash ??? Nsaids Hx GI Bleed ??? Reglan [Metoclopramide Hcl] Hives ??? Droperidol Other (See Comments) Behavioral changes ??? Nalbuphine Hcl Behavioral changes ??? Phenergan [Promethazine] Other (See Comments) Patient reports she gets mean & jerky Code Status: Full Code Activity level - Baseline/Home: independent. Activity Level - Current: standby. Lift room needed: No. Bariatric: No Bridge Opener Needed: No Isolation: Yes. Infection: enteric Respiratory status: Room air Vital Signs (within 30 minutes): Vitals: 12/03/22 1122 12/03/22 1232 12/03/22 1427 12/03/22 1442 BP: (!) 159/94 (!) 174/132 (!) 168/96 Pulse: 79 Resp: Temp: TempSrc: SpO2: 94% 99% 95% 94% Weight: Height: Cardiac Rhythm: , Cardiac Cardiac Rhythm: Heart block;Normal sinus rhythm (first degree heart block) Pain level: Patient confused: No. Patient Falls Risk: activity supervised. Elimination Status: Has voided Patient Report - Initial Complaint: a history of chronic pain and recent C. difficile colitis infection and recent admission for intractable abdominal pain/nausea and vomiting presents with primary concerns of chest pain. At 4 AM today patient had the onset of chest discomfort. Pain is left-sided, constant, nonradiating and without alleviating or aggravating factors. There have been no pain-free episodes since onset of symptoms. She took 1 baby aspirin and sublingual nitroglycerin without improvement. She also reports ongoing abdominal pain and nausea/vomiting. Symptoms returned 1 week after her recent hospital discharge and has been persistent since. Pain is in the mid abdomen but radiates throughout, constant and worsened by her recurrent vomiting. She denies urinary frequency, bloody stools. She is having 5 episodes of nonbloody diarrhea per day.. Focused Assessment: Cardiac Cardiac LA Cardiac (Adult) Cardiac WDL: .WDL except; all; rhythm Pulse Rate & Regularity: radial pulse regular Cardiac Rhythm: Heart block; NSR (first degree heart block) Chest Pain Assessment Chest Pain Location: anterior chest, left Chest Pain Radiation: arm Gastrointestinal Gastrointestinal LA Gastrointestinal Gastrointestinal WDL: .WDL except; all GI Signs/Symptoms: abdominal discomfort; vomiting; nausea; dry-heaving (medial abd, rating 8/10) Last Bowel Movement: 12/03/22 Stool Consistency: liquid; loose Stool Color: yellow; alvarez Abnormal Results: Labs Ordered and Resulted from Time of ED Arrival to Time of ED Departure TROPONIN T, HIGH SENSITIVITY - Abnormal Result Value Troponin T, High Sensitivity 21 (*) BASIC METABOLIC PANEL - Abnormal Sodium 136 Potassium 4.8 Chloride 95 (*) Carbon Dioxide (CO2) 23 Anion Gap 18 (*) Urea Nitrogen 10.8 Creatinine 0.90 Calcium 8.2 (*) Glucose 275 (*) GFR Estimate 72 CBC WITH PLATELETS AND DIFFERENTIAL - Abnormal WBC Count 3.1 (*) RBC Count 4.06 Hemoglobin 13.1 Hematocrit 39.9 MCV 98 MCH 32.3 MCHC 32.8 RDW 16.2 (*) Platelet Count 184 % Neutrophils 54 % Lymphocytes 38 % Monocytes 7 % Eosinophils 0 % Basophils 1 % Immature Granulocytes 0 NRBCs per 100 WBC 0 Absolute Neutrophils 1.6 Absolute Lymphocytes 1.2 Absolute Monocytes 0.2 Absolute Eosinophils 0.0 Absolute Basophils 0.0 Absolute Immature Granulocytes 0.0 Absolute NRBCs 0.0 HEPATIC FUNCTION PANEL - Abnormal Protein Total 6.5 Albumin 3.5 Bilirubin Total 0.5 Alkaline Phosphatase 168 (*) AST 49 (*) ALT 29 Bilirubin Direct <0.20 LIPASE - Abnormal Lipase 220 (*) D DIMER QUANTITATIVE - Abnormal D-Dimer Quantitative 2.08 (*) TSH WITH FREE T4 REFLEX - Abnormal TSH 22.03 (*) ROUTINE UA WITH MICROSCOPIC REFLEX TO CULTURE - Abnormal Color Urine Yellow Appearance Urine Cloudy (*) Glucose Urine Negative Bilirubin Urine Negative Ketones Urine Trace (*) Specific [place] Urine 1.016 Blood Urine Negative pH Urine 7.0 Protein Albumin Urine 50 (*) Urobilinogen Urine 2.0 Nitrite Urine Negative Leukocyte Esterase Urine Negative Bacteria Urine Many (*) Mucus Urine Present (*) RBC Urine 1 WBC Urine 6 (*) Squamous Epithelials Urine 33 (*) TROPONIN T, HIGH SENSITIVITY - Abnormal Troponin T, High Sensitivity 19 (*) T4 FREE - Abnormal Free T4 0.74 (*) NT PROBNP INPATIENT - Normal N terminal Pro BNP Inpatient 225 CT Chest Pulmonary Embolism w Contrast Final Result IMPRESSION: 1. No evidence of pulmonary embolism. 2. Mild basilar pulmonary opacities, likely atelectasis. 3. Mild peripancreatic fat stranding, worrisome for acute pancreatitis. Coarse pancreatic parenchymal calcification, likely sequela of chronic pancreatitis. 4. Hepatic steatosis. SHAWN IRELAND MD Treatments provided: see ED meds below Family Comments: NA OBS brochure/video discussed/provided to patient: N/A ED Medications: Medications lactated ringers BOLUS 500 mL (500 mLs Intravenous $New Bag 12/03/22 1440) HYDROmorphone (PF) (DILAUDID) injection 0.5 mg (0.5 mg Intravenous $Given 12/03/22 1408) aspirin (ASA) chewable tablet 243 mg (243 mg Oral $Given 12/03/22 1205) ondansetron (ZOFRAN) injection 4 mg (4 mg Intravenous $Given 12/03/22 1012) LORazepam (ATIVAN) injection 1 mg (1 mg Intravenous $Given 12/03/22 1042) 0.9% sodium chloride BOLUS (0 mLs Intravenous Stopped 12/03/22 1408) iopamidol (ISOVUE-370) solution 500 mL (75 mLs Intravenous $Given 12/03/22 1129) Drips infusing: No For the majority of the shift this patient was Green. Interventions performed were NA. Sepsis treatment initiated: No Cares/treatment/interventions/medications to be completed following ED care: NA ED Nurse Name: Abi Benites RN 2:26 PM RECEIVING UNIT ED HANDOFF REVIEW Above ED Nurse Handoff Report was reviewed: Yes Reviewed by: Lillian Michele RN on December 03, 2022 at 4:45 PM * Abi Benites RN - 12/03/2022 12:25 PM CDT Back from imaging. Reporting room spinning dizziness upon arrival back from imaging. Stating, I think movement, is what brought on the dizziness. No hx of vertigo. Nausea returning as well. * Abi Benites RN - 12/03/2022 9:47 AM CDT Patient also reports took one nitr0 and ASA this AM with no results from the one nitr0 * Abi Benites RN - 12/03/2022 9:29 AM CDT Arrives via EMS from home with main complaint of chest pain which awakened her during the night, around 0400. Pain is similar to previous LA in September of this year. Left chest radiating to left arm. Also c/o shortness of breath, n/v, abd pain, and diarrhea. Recent hospitalization with c-dif. Took 4mg po zofran this AM with no results. Given additional zofran po en route. EMS unable to obtain IV access. HR=80. JG=405. Has not taken insulin or other meds this morning. Hx htn Actively dry-heaving. Chest pain and abd pain at this time. ABCD's intact, A/O x 4. Triage Assessment Row Name 12/03/22 0928 Cardiac WDL Cardiac WDL X;chest pain Chest Pain Assessment Chest Pain Location arm, left;anterior chest, left Chest Pain Radiation arm Cognitive/Neuro/Behavioral WDL Cognitive/Neuro/Behavioral WDL WDL * Chasidy Quezada RN - 12/03/2022 9:15 AM CDT Bed: ED37 Expected date: Expected time: Means of arrival: Comments: [place]. 61. F. * Dyan Kaur PA-C - 12/03/2022 9:15 AM CDT History Chief Complaint: Chest Pain, Shortness of breath, Abdominal Pain The history is provided by the patient. Kaila Hernandez is a 61 year old female, on Aspirin 81mg, with a history of chronic pancreatitis, c-diff colitis flares, transaminitis, HTN, HLD, DMII, hypothyroidism who presents via EMS withleft-sided chest pain which started 6.5 hours ago, shortness of breath, abdominal pain. The patientstates that she took nitroglycerin and one baby aspirin this morning to help her symptoms, without i mprovement. The patient reports her chest pain is an 8/10 and radiates throughout her chest, armpit, and upper arm nearly to the elbow. The patient notes that her shortness of breath is worsened by ambulation and deep breaths, but palliated when she lies down. The patient reports of nausea, vomiting, diarrhea, abdominal pain, and chills. The patient states that all of these symptoms have been flared up for 4 or 5 days now after having another flare up of her C-diff. The patient denies any feveror blood in stool. The patient states that these symptoms may be a result of her C. Diff, which shetook vancomycin for recently but has finished. The patient has had C. Diff for over a decade and ithad recently flared up and she was admitted to the hospital before her recent flare up 4 days ago. The patient has a history of a total pelvic floor collapse, heart attack, and a blood clot in her spleen. She denies any DVT in her legs or lungs. The patient has a surgical history of cholecystectomy, appendectomy, , and hysterectomy. The patient has had no stents or bypass done. The patient's states that she has also had an episode of CHF. Independent Historian: Spouse/Partner - They report information as given above Review of External Notes: 10/12/2022 The patient has a chronic pain agreement for acute pain buprenorphine is being prescribed, robaxin, medical cannabis, and clonazepam. Medications: Albuterol inhaler Amlodipine Aspirin 81 mg Brexpiprazole Suboxone Clonazepam Colestipol Cyanocobalamin Desvenlafaxine Fenofibrate Ferrous sulfate Hydroxyzine Insulin aspart Levothyroxine Methocarbamol Metoprolol tartrate [place]-3 acid ethyl esters Pantoprazole Potassium gluconate Risperidone Rosuvastatin Epinephrine Naloxone Nitroglycerin Nystatin Simethicone Ondansetron Past Medical History: Anemia Benzodiazapine dependence C. Diff infection Chronic infection Chronic pain Chronic abdominal pain COPD Degeneration of intervertebral disc Diabetic neuropathy Esophageal reflux Anxiety Blood transfusion Hypertension Hypertriglyceridemia Heart failure Hyperlipidemia Depression Cataract Kidney stone Gallbladder disorder IBS Liver disease Malabsorption Nephrolithiasis Neurogenic bladder Obesity Opoid dependence MARIELLE Port-a-cath in place Pancreatis, recurrent Sleep apnea Stress-induced cardiomyopathy Syncope Tobacco dependence Transaminitis Hereditary and idiopathic peripheral neuropathy Hypothyroidism Vitamin B12 deficiency Vitamin D deficiency RLS Pulmonary emphysema Hypoxemia Personality disorder Hematemesis Polyglandular dysfunction Lumbago Diabetes mellitus Thyroid nodule Osteoporosis TIA Seizures Migraines Concussion, LOC unspecified Fibromyalgia Arthritis Laila- whitman tear Abscess of buttock Chronic airway obstruction Ankle instability Physical deconditioning NAFLD Angina pectoris Acute cystitis with hematuria Avascular necrosis of hip bone Metabolic encephalopathy Disc disorder Necrotizing fasciitis Left sided weakness UTI Narrowing of intervertebral disc space Small bowel tube feeding Serotonin syndrome mild Recurrent colitis Nicotine dependency MALLORY Ingrown toenail Acute gastroenteritis Chronic respiratory failure with hypoxia Metabolic acidosis Type 1 diabetes Pyelonephritis Myxedema Dysthymia Spinal headache Exhausted vascular access Hyponatremia Ovarian cyst Drug-seeking behavior Abnormal urinalysis Vein disorder Acute renal failure Hypokalemia Dilantin toxicity Pneumonia Metabolic acidosis Hypomagnesemia Gastroparesis Unintentional weight loss Chronic nausea Hyperhidrosis Pseudoseizure Past Surgical History: Appendectomy Arthroplasty, hip Arthroscopy, ankle Back surgery Cardiac catheterization Colonoscopy Cystocele repair Discectomy, fusion cervical anterior one-level, combined Dilation and curettage section Tubal ligation Spine surgery Thyroid surgery Gallbladder surgery Esophagoscopy , gastroscopy, duodenoscopy, combined Fusion cervical anterior level Hysterectomy, vaginal Incision and drainage, hip Insert pump, morphine IR port removal, right Laminectomy lumbar 2 levels Laparoscopic cholecystectomy Open reduction internal fixation fibula Ankle reconstruction Rectocele hardware lower extremity Repair rectocele Tonsillectomy Oophorectomy Necrotizing fasciitis Gastrostomy jejunostomy tube Physical Exam Patient Vitals for the past 24 hrs: BP Temp Temp src Pulse Resp SpO2 Height Weight 12/03/22 1732 (!) 156/84 98.2 ??F (36.8 ??C) Temporal 74 18 94 % -- -- 12/03/22 1555 (!) 154/108 -- -- -- -- 96 % -- -- 12/03/22 1525 -- -- -- 77 -- 95 % -- -- 12/03/22 1455 (!) 170/98 -- -- 77 -- 95 % -- -- 12/03/22 1442 (!) 168/96 -- -- -- -- 94 % -- -- 12/03/22 1427 -- -- -- -- -- 95 % -- -- 12/03/22 1232 (!) 174/132 -- -- -- -- 99 % -- -- 12/03/22 1122 (!) 159/94 -- -- 79 -- 94 % -- -- 12/03/22 1107 (!) 171/97 -- -- 74 -- 99 % -- -- 12/03/22 1052 (!) 168/99 -- -- 73 -- 94 % -- -- 12/03/22 1037 (!) 168/94 -- -- 78 -- 97 % -- -- 12/03/22 1022 (!) 162/93 -- -- 72 -- 93 % -- -- 12/03/22 1009 -- -- -- -- -- 96 % -- -- 12/03/22 1008 -- -- -- 79 -- 96 % -- -- 12/03/22 1007 -- -- -- 78 -- 97 % -- -- 12/03/22 1006 -- -- -- 77 -- 95 % -- -- 12/03/22 1005 -- -- -- 75 -- 94 % -- -- 12/03/22 1004 -- -- -- 73 -- 93 % -- -- 12/03/22 1003 -- -- -- 77 -- 94 % -- -- 12/03/22 1002 -- -- -- 77 -- 92 % -- -- 12/03/22 0958 (!) 156/93 -- -- 77 -- 96 % -- -- 12/03/22 0928 (!) 153/93 -- -- 84 -- 99 % -- -- 12/03/22 0926 (!) 167/91 98.3 ??F (36.8 ??C) Oral 79 20 99 % 1.727 m (5' 8) 104.3 kg (230 lb) Physical Exam General: Nontoxic-appearing adult female appears older than stated age. Holding emesis bag sitting on gurney. HENT: Head: Atraumatic. Mouth/Throat: Oropharynx clear and moist. Eyes: Conjunctive and EOM normal. PERRLA. Neck: Normal ROM. No rigidity. CV: Regular rate and rhythm. Normal S1, S2. No appreciable murmurs. Resp: Lungs clear to auscultation bilaterally. Normal respiratory effort. No stridor or cough observed. GI: Bowel sounds present. Abdomen mildly distended. Patient tender in the epigastric and periumbilical area. No rebound or guarding. MSK: Normal range of motion. Bilateral symmetric lower extremity edema. Skin: Warm and dry. No rashes. Neuro: Awake, alert, oriented x 3. Normal and fluent speech. No facial droop. No weakness in any extremities. Psych: Normal mood and affect. Emergency Department Course ECG: ECG results from 12/03/22 EKG 12 lead Value Systolic Blood Pressure Diastolic Blood Pressure Ventricular Rate 76 Atrial Rate 77 [place] Interval 138 QRS Duration 90 QT 418 QTc 470 P [place] 7 R AXIS 42 T [place] 95 Interpretation ECG Undetermined rhythm ST & T wave abnormality, consider anterior ischemia Abnormal ECG When compared with ECG of 16-OCT-2022 18:19, Current undetermined rhythm precludes rhythm comparison, needs review Criteria for Anteroseptal infarct are no longer Present Nonspecific T wave abnormality no longer evident in Inferior leads Confirmed by - EMERGENCY ROOM, PHYSICIAN ([id number]), scientific publications editor TALON GONZALES ([id number]) on 12/03/2022 10:28:45 AM *Note: Due to a large number of results and/or encounters for the requested time period, some results have not been displayed. A complete set of results can be found in Results Review. Imaging: CT Chest Pulmonary Embolism w Contrast Final Result IMPRESSION: 1. No evidence of pulmonary embolism. 2. Mild basilar pulmonary opacities, likely atelectasis. 3. Mild peripancreatic fat stranding, worrisome for acute pancreatitis. Coarse pancreatic parenchymal calcification, likely sequela of chronic pancreatitis. 4. Hepatic steatosis. SHAWN IRELAND MD Report per radiology Laboratory: Labs Ordered and Resulted from Time of ED Arrival to Time of ED Departure TROPONIN T, HIGH SENSITIVITY - Abnormal Result Value Troponin T, High Sensitivity 21 (*) BASIC METABOLIC PANEL - Abnormal Sodium 136 Potassium 4.8 Chloride 95 (*) Carbon Dioxide (CO2) 23 Anion Gap 18 (*) Urea Nitrogen 10.8 Creatinine 0.90 Calcium 8.2 (*) Glucose 275 (*) GFR Estimate 72 CBC WITH PLATELETS AND DIFFERENTIAL - Abnormal WBC Count 3.1 (*) RBC Count 4.06 Hemoglobin 13.1 Hematocrit 39.9 MCV 98 MCH 32.3 MCHC 32.8 RDW 16.2 (*) Platelet Count 184 % Neutrophils 54 % Lymphocytes 38 % Monocytes 7 % Eosinophils 0 % Basophils 1 % Immature Granulocytes 0 NRBCs per 100 WBC 0 Absolute Neutrophils 1.6 Absolute Lymphocytes 1.2 Absolute Monocytes 0.2 Absolute Eosinophils 0.0 Absolute Basophils 0.0 Absolute Immature Granulocytes 0.0 Absolute NRBCs 0.0 HEPATIC FUNCTION PANEL - Abnormal Protein Total 6.5 Albumin 3.5 Bilirubin Total 0.5 Alkaline Phosphatase 168 (*) AST 49 (*) ALT 29 Bilirubin Direct <0.20 LIPASE - Abnormal Lipase 220 (*) D DIMER QUANTITATIVE - Abnormal D-Dimer Quantitative 2.08 (*) TSH WITH FREE T4 REFLEX - Abnormal TSH 22.03 (*) ROUTINE UA WITH MICROSCOPIC REFLEX TO CULTURE - Abnormal Color Urine Yellow Appearance Urine Cloudy (*) Glucose Urine Negative Bilirubin Urine Negative Ketones Urine Trace (*) Specific [place] Urine 1.016 Blood Urine Negative pH Urine 7.0 Protein Albumin Urine 50 (*) Urobilinogen Urine 2.0 Nitrite Urine Negative Leukocyte Esterase Urine Negative Bacteria Urine Many (*) Mucus Urine Present (*) RBC Urine 1 WBC Urine 6 (*) Squamous Epithelials Urine 33 (*) TROPONIN T, HIGH SENSITIVITY - Abnormal Troponin T, High Sensitivity 19 (*) T4 FREE - Abnormal Free T4 0.74 (*) NT PROBNP INPATIENT - Normal N terminal Pro BNP Inpatient 225 Emergency Department Course & Assessments: Interventions: Medications albuterol (PROVENTIL HFA/VENTOLIN HFA) inhaler (has no administration in time range) amLODIPine (NORVASC) tablet 10 mg (has no administration in time range) aspirin EC tablet 81 mg (has no administration in time range) brexpiprazole (REXULTI) tablet 2 mg (has no administration in time range) buprenorphine HCl-naloxone HCl (SUBOXONE) 2-0.5 MG per film 1 Film (has no administration in time range) clonazePAM (klonoPIN) tablet 1 mg (has no administration in time range) colestipol (COLESTID) tablet 1 g (has no administration in time range) desvenlafaxine (PRISTIQ) 24 hr tablet 100 mg (has no administration in time range) desvenlafaxine (PRISTIQ) 24 hr tablet 50 mg (has no administration in time range) fenofibrate (TRICOR) tablet 48 mg (has no administration in time range) ferrous sulfate (FEROSUL) tablet 325 mg (has no administration in time range) hydrOXYzine (ATARAX) tablet 25 mg (has no administration in time range) insulin glargine (LANTUS PEN) injection 5 Units (has no administration in time range) levothyroxine (SYNTHROID/LEVOTHROID) tablet 350 mcg (has no administration in time range) methocarbamol (ROBAXIN) tablet 1,000 mg (has no administration in time range) metoprolol tartrate (LOPRESSOR) tablet 25 mg (has no administration in time range) pantoprazole (PROTONIX) IV push injection 40 mg (has no administration in time range) Potassium Gluconate CAPS 1 capsule (has no administration in time range) risperiDONE (risperDAL M-TABS) ODT tab 0.5 mg (has no administration in time range) rosuvastatin (CRESTOR) tablet 40 mg (has no administration in time range) simethicone (MYLICON) chewable tablet 80 mg (has no administration in time range) lidocaine 1 % 0.1-1 mL (has no administration in time range) lidocaine (LMX4) cream (has no administration in time range) sodium chloride (PF) 0.9% PF flush 3 mL (has no administration in time range) sodium chloride (PF) 0.9% PF flush 3 mL (has no administration in time range) melatonin tablet 1 mg (has no administration in time range) glucose gel 15-30 g (has no administration in time range) Or dextrose 50 % injection 25-50 mL (has no administration in time range) Or glucagon injection 1 mg (has no administration in time range) enoxaparin ANTICOAGULANT (LOVENOX) injection 40 mg (has no administration in time range) lactated ringers infusion (has no administration in time range) acetaminophen (TYLENOL) tablet 650 mg (has no administration in time range) Or acetaminophen (TYLENOL) Suppository 650 mg (has no administration in time range) HYDROmorphone (DILAUDID) tablet 2 mg (has no administration in time range) HYDROmorphone (PF) (DILAUDID) injection 0.5 mg (has no administration in time range) senna-docusate (SENOKOT-S/PERICOLACE) 8.6-50 MG per tablet 1 tablet (has no administration in time range) Or senna-docusate (SENOKOT-S/PERICOLACE) 8.6-50 MG per tablet 2 tablet (has no administration in time range) ondansetron (ZOFRAN ODT) ODT tab 4 mg (has no administration in time range) Or ondansetron (ZOFRAN) injection 4 mg (has no administration in time range) insulin aspart (NovoLOG) injection (RAPID ACTING) (has no administration in time range) nicotine Patch in Place (has no administration in time range) nicotine (NICODERM CQ) 21 MG/24HR 24 hr patch 1 patch (has no administration in time range) hydrALAZINE (APRESOLINE) injection 10 mg (has no administration in time range) naloxone (NARCAN) injection 0.2 mg (has no administration in time range) Or naloxone (NARCAN) injection 0.4 mg (has no administration in time range) Or naloxone (NARCAN) injection 0.2 mg (has no administration in time range) Or naloxone (NARCAN) injection 0.4 mg (has no administration in time range) aspirin (ASA) chewable tablet 243 mg (243 mg Oral $Given 12/03/22 1205) ondansetron (ZOFRAN) injection 4 mg (4 mg Intravenous $Given 12/03/22 1012) LORazepam (ATIVAN) injection 1 mg (1 mg Intravenous $Given 12/03/22 1042) lactated ringers BOLUS 500 mL (0 mLs Intravenous Stopped 12/03/22 1540) 0.9% sodium chloride BOLUS (0 mLs Intravenous Stopped 12/03/22 1408) iopamidol (ISOVUE-370) solution 500 mL (75 mLs Intravenous $Given 12/03/22 1129) HYDROmorphone (PF) (DILAUDID) injection 0.5 mg (0.5 mg Intravenous $Given 12/03/22 1545) lactated ringers BOLUS 500 mL (500 mLs Intravenous $New Bag 12/03/22 1546) ondansetron (ZOFRAN) injection 4 mg (4 mg Intravenous $Given 12/03/22 1554) Independent Interpretation (X-rays, CTs, rhythm strip): I reviewed the patient's CAP and note no PE. Patient has fat stranding around her pancreas. No SBO noted on imaging. Assessments/Consultations/Discussion of Management or Tests: ED Course as of 12/03/22 1450 TueDecember 03, 2022 0999 I obtained the patient's history and examined as noted above. [address] Sutton and staffed case with him. [address] Sutton regarding the patient. [address] Sutton regarding the patient. I paged out the hospitalist and rechecked the patient. I discussed pain management with him as well. 2154 I spoke with Raquel Rahman, hospitalist FELY, and she accepted the patient on behalf of Dr. Awad. Social Determinants of Health affecting care: None Disposition: The patient was admitted to the hospital under the care of Dr. Awad. Impression & Plan Medical Decision Making: Kaila Hernandez is a 61 year old female, on aspirin, with a history of chronic pancreatitis,c-diff colitis flares, transaminitis, HTN, HLD, DMII, hypothyroidism and chronic pain who presentedvia EMS with left-sided chest pain which started 6.5 hours ago, shortness of breath, abdominal pain. On arrival, she is afebrile and nontoxic-appearing. On exam, she has upper abdominal tenderness. She is status postcholecystectomy already. Initial EKG with no acute ischemic findings. Initial troponin mildly elevated at 21 and repeat ordered and flat. D-dimer screen elevated. Therefore, I pursuedCT chest abdomen pelvis PE study. This was negative for acute PE. Patient has moderate risk heart score. History: Moderately suspicious EKG: No acute changes Age: 61 Risk factors: Obesity, HTN, HLD, DM Initial troponin: Elevated Total: 5 points Moderate risk Patient had notable fat stranding around the pancreas concerning for acute on chronic pancreatitis and her lipase returned at 220, considerably above the upper limit of normal. She was given IV fluids and IV pain meds. She is already status postcholecystectomy so no concern for acute gallstone pancreatitis. She is not a big alcohol drinker. States she has a history of hypertriglyceridemia which is likely the etiology. She has transaminitis at baseline and had hepatic steatosis to explain this on her findings. Had some pulmonary opacities concerning for atelectasis on CT and some unchanged pulmonary nodules. Additionally, patient has a history of diabetes and was hyperglycemic at 275 here- fluid bolus provided and she will go on sliding scale on admission. Urine obtained contaminated with squamous epithelial cells. This was cent for culture. CBC showed mild leukopenia. No anemia. Thyroidstudies obtained and notable for suboptimal T4, but no sign of myxedema. I staffed this patient with Dr. Sutton who also saw and evaluated her since she was triaged as a level 2 and requires admission. See separate APC supervisory note. I discussed the patient's case with Raquel Rahman of the hospitalist service who graciously excepted her for inpatient admission and further management and supportive cares. Patient remained hemodynamically stable throughout her course here. Diagnosis: ICD-10-CM 1. Acute on chronic pancreatitis (H) K85.90 K86.1 2. Chest pain, unspecified type R07.9 3. Elevated troponin R77.8 4. Hyperglycemia R73.9 5. Hepatic steatosis K76.0 6. Pulmonary nodules R91.8 7. Hypothyroidism, unspecified type E03.9 Scribe Disclosure: I, Nilsa Flores, am serving as a scribe at 11:07 AM on 12/03/2022 to document services personally performed by Dyan Kaur PA-C based on my observations and the provider's statements to me. Scribe Disclosure: I, Ruth Ann WilkersonMeetaCano, am serving as a scribe at 2:55 PM on 12/03/2022 to document services personallyperformed by Parag Sutton MD based on my observations and the provider's statements to me. 12/03/2022 Dyan Kaur PA-C Dewing, Jennifer C, PA-C 12/03/22 180 * Parag Sutton MD - 12/03/2022 9:15 AM CDT Emergency Department Attending Supervision Note 12/03/2022 10:39 AM I evaluated this patient in conjunction with Dyan ORTIZ 61-year-old female with a history of chronic pain and recent C. difficile colitis infection and recent admission for intractable abdominal pain/nausea and vomiting presents with primary concerns of chest pain. At 4 AM today patient had the onset of chest discomfort. Pain is left-sided, constant, nonradiating and without alleviating or aggravating factors. There have been no pain-free episodes since onset of symptoms. She took 1 baby aspirin and sublingual nitroglycerin without improvement. She also reports ongoing abdominal pain and nausea/vomiting. Symptoms returned 1 week after her recent hospital discharge and has been persistent since. Pain is in the mid abdomen but radiates throughout, constant and worsened by her recurrent vomiting. She denies urinary frequency, bloody stools. She is having 5 episodes of nonbloody diarrhea per day. On my exam, Eyes: Conjunctiva normal Neck: Supple, no meningismus. CV: Regular rate and rhythm. No murmurs, rubs or gallops. No unilateral leg swelling. 2+ radial pulses bilateral. No lower extremity edema. PULM: Clear to auscultation bilateral. No respiratory distress. Good air exchange. No rales or wheezing. No stridor. ABD: Soft, non-tender Mild-moderate diffuse abdominal tenderness No pulsatile masses. No rebound, guarding or rigidity. MSK: No gross deformity to all four extremities. LYMPH: No cervical lymphadenopathy. NEURO: Alert. Good muscle tone, no atrophy. Skin: Warm, dry and intact. Psych: Anxious 61-year-old female presents with 6 hours of constant atypical chest pain. EKG reveals no novel ischemic changes from baseline. Initial troponin was mildly elevated. Patient given a total of 324 mg ofaspirin given (81 mg taken at home). Low suspicion for ACS. 2-hour delta troponin is still pending.Low suspicion for PE. D-dimer was elevated thus underwent CT scan of her chest which is negative for pulmonary embolism. She also reported intractable nausea, vomiting and mid abdominal pain. Lipase is mildly elevated. The remainder of her laboratory studies were unrevealing. CT scan of the abdomen reveals radiographicsigns of pancreatitis. Symptoms are not well controlled and will require transfer to medical bed. Diagnosis (K85.90, K86.1) Acute on chronic pancreatitis (H) (primary encounter diagnosis) (R07.9) Chest pain, unspecified type (R77.8) Elevated troponin (R73.9) Hyperglycemia (K76.0) Hepatic steatosis (R91.8) Pulmonary nodules (E03.9) Hypothyroidism, unspecified type MD Herman Kirkland Jeremiah R, MD 12/03/22 1327 documented in this encounter Miscellaneous Notes * Plan of Care - Paloma Marquez RN - 2022 5:13 PM CDT Goal Outcome Evaluation: Plan of Care Reviewed With: patient Patient discharged to home with spouse at 1710. Discharge orders gone through no questions, no discharge medications. IV out, all belongings taken with patient. * Plan of Care - Dyan Washburn RN - 2022 2:43 PM CDT Goal Outcome Evaluation: Pt sleepy today but alert and oriented when awake. Good appetite for breakfast. Pain in abdomen an 8 and meds given as ordered with some relief to a 4-5. Abdominal ultrasound done today. Discharge later this afternoon? Will monitor. * Plan of Care - Jovi Joseph RN - 2022 8:09 AM CDT Pt is A&O. VSS. On RA. Rates pain as moderate. Takes PRN Dilaudid and PRN PO Ativan. Said that Toradol IV did not help with pain. NPO as of 99 after receiving a call from the Intrasound . BG checks. Independent in the room. Voids in the bathroom and reports to RN. On potassium and magnesium protocols. Sleeps between cares. From home. Plan is to be discharged back home on 12/11. * Plan of Care - Paloma Marquez RN - 12/10/2022 10:23 PM CDT Goal Outcome Evaluation: Plan of Care Reviewed With: patient Patient A&Ox4, VSS. Patient moves independently. Requesting for IV ativan whenever it is available. Tolerated a low fat diet. Still waiting to get an ultrasound done. Plan is for possible discharge to home tomorrow. * Plan of Care - Radha Healy RN - 12/10/2022 2:20 PM CDT Goal Outcome Evaluation: Plan of Care Reviewed With: patient, spouse Tolerating diet, denies nausea. Requesting IV Ativan and PO Dilauded whenever available. Refusing complete bowel program and only agreed to partial dose of Miralax. Stated I'm not having a colonoscopy. MD notified. Unable to complete CT of abdomen due to loss of IV access. IV infiltrated in CT during procedure. Hot packs applied PRN. Site swollen. Up independently in room. Hoping to discharge to home tomorrow. * Plan of Care - Lillian Michele RN - 12/09/2022 6:14 PM CDT Goal Outcome Evaluation: Plan of Care Reviewed With: patient Patient is alert and oriented times four; able to communicate needs and concerns. In pleasant mood.VS are stable. RA. CMS intact. Denied SOB. C/O intermittent nausea. Ativan administered. Pain managed by routine atarax, and robaxin. On low fat diet; tolerating PO. No BM yet. Saline lock. Independent. Walked in the hallway. Medically stable. Possible discharge tomorrow. * Plan of Care - Hamida Calle RN - 12/09/2022 1:41 PM CDT Goal Outcome Evaluation: Plan of Care Reviewed With: patient Overall Patient Progress: improving A & Ox4, able to make needs known. Intermittent nausea, iv ativan given. Full liquid diet, advanced to low fat this with intermittent nausea continuing. PRN & scheduled pain meds given. Independent in room. Nicotine patch UR arm. Saline locked. * Plan of Care - Long Guzman RN - 12/09/2022 12:25 AM CDT Goal Outcome Evaluation: Vital Signs: BP 102/62 (BP Location: Right arm) Pulse 57 Temp 97.5 ??F (36.4 ??C) (Temporal) Resp 16 Ht 1.727 m (5' 8) Wt 104.3 kg (230 lb) LMP (LMP Unknown) SpO2 94% BMI 34.97 kg/m?? Pt A&O x4, afebrile. Soft BP. LS clear. Pain managed with atarax, robaxin, po dilaudid. Nausea intermittent, Ativan given. Full liquid diet. Up independently in the room, voiding without difficulty. Nicotine patch in place. IV saline locked. Will continue to monitor. * Plan of Care - Josseline Montiel RN - 12/08/2022 8:08 PM CDT A&Ox4. Independent. Full liquid diet. VSS. 02 - 92% on RA. LS - clear. Blood sugar - 143. Ate well. Intermittent nausea. Nicotine patch in place. IV - SL. * Plan of Care - Nestor Villafana RN - 12/08/2022 2:31 PM CDT A&O X4. VSS. Independent, ambulated to the restroom and in the room. No IV due to patient removing on accident, paged vascular as patient is a hard stick. Unable to tolerate low fat diet so back to full liquid diet. Pt reports abdominal pain and nausea. Ativan given for nausea. Atarax, robaxin,and suboxone given for pain. Blood sugar check 184 and 114, 1 unit of insulin given. Pot and mag protocol, no interventions needed. Plan to keep until able to tolerate diet. Educated pt that small frequent meals would help with nausea. Bed in lowest position and call light in reach. Blood pressure 96/55, pulse 66, temperature 97.9 ??F (36.6 ??C), temperature source Temporal, resp.rate 16, height 1.727 m (5' 8), weight 104.3 kg (230 lb), SpO2 91 %, not currently . * Plan of Care - Long Guzman RN - 12/07/2022 10:52 PM CDT Goal Outcome Evaluation: Vital Signs: BP 109/63 (BP Location: Right arm, Cuff Size: Adult Large) Pulse 65 Temp 97.9 ??F (36.6 ??C) (Temporal) Resp 16 Ht 1.727 m (5' 8) Wt 104.3 kg (230 lb) LMP (LMP Unknown) SpO2 96% BMI 34.97 kg/m?? Pt A&O x4, VSS, RA, afebrile. LS clear. Using IS up to 2500. Pain managed with PO dilaudid, atarax, robaxin. Up independently in the room, voiding, No BM this shift. Will continue to monitor. * Plan of Care - Za Carpenter RN - 12/07/2022 6:43 PM CDT Aox4. Able to communicate needs well. VSS. On RA. Pain controlled with PRN oral Dilaudid, scheduledIV Toradol, Robaxin, atarax and suboxone. Pt advanced to low fat diet and is tolerating it. Denies any chest pain, N/V or diarrhea. Lung sounds clear. Bowel sounds active in all four quads. No BM butpassing gas. No coverage per sliding scale. Voiding without any issues. Requested PRN ativan to prevent nausea. Possible discharge tomorrow if continues to tolerate low fat diet. Will continue to provide supportive care. * Utilization Review - Misael Fragoso MD - 12/07/2022 11:12 AM CDT Admission Status; Secondary Review Determination Under the authority of the Utilization Management Committee, the utilization review process indicated a secondary review on the above patient. The review outcome is based on review of the medical records, discussions with staff, and applying clinical experience noted on the date of the review. (x) Inpatient Status Appropriate - Insurance denial RATIONALE FOR DETERMINATION 61-year-old female with a significant past medical history including chronic pancreatitis secondaryto hypertriglyceridemia, chronic obstructive pulmonary disease (COPD), C. difficile infection, hypertension, neurogenic bladder, opioid dependence managed with Suboxone, obstructive sleep apnea (non-compliant with CPAP), recent lumbar fusion, hypothyroidism, tobacco dependence, and chronic pain wasadmitted on 12/03/2022 with complaints of stomach pain, nausea, vomiting, and diarrhea. Her investigations in the ED showed an elevated anion gap, elevated lipase, glucose, and TSH levels with a low free T4, elevated D-dimer, high-sensitivity troponin, and mild basilar pulmonary opacities and [place] creatic fat stranding suggestive of acute pancreatitis on CT chest. The management of her pain has been complicated due to her chronic pain history and the regular useof buprenorphine (Suboxone) for her opioid dependence. Over the first two days of her stay, she needed more than 10 doses of intravenous narcotics, in addition to other pain medications. As of 12/07, she has spent 4 nights/5 days in the hospital, still needing care and attention. The treatment team is currently working on dietary advancement and transitioning her from IV to oral pain medication, which are wright steps for her possible discharge planning. The expected length of stay at the time of admission was more than 2 nights because of the severityof illness, intensity of service provided, and risk for adverse outcome. Inpatient admission is appropriate. This document was produced using voice recognition software The information on this document is developed by the utilization review team in order for the business office to ensure compliance. This only denotes the appropriateness of proper admission status and does not reflect the quality of care rendered. The definitions of Inpatient Status and Observation Status used in making the determination above are those provided in the CMS Coverage Manual, Chapter 1 and Chapter 6, section 70.4. Sincerely, MISAEL FRAGOSO MD System Manager Field InvestigationsSenior Validation Engineer [facility]. * Plan of Care - Walter Garner RN - 12/07/2022 3:19 AM CDT Goal Outcome Evaluation: Plan of Care Reviewed With: patient Overall Patient Progress: improvingOverall Patient Progress: improving A/Ox4, VSS on RA. Abdominal pain controlled with oral medications, see MAR. Tolerating full liquid diet. Nausea is continuous, PRN Ativan given. Independent in room, voiding adequately. Enteric precautions removed, diarrhea has resolved and stool PCR was not collected. Plan TBD. * Plan of Care - Za Carpenter RN - 12/06/2022 7:30 PM CDT Aox4. Able to express needs well. VSS. RA. Rated pain 8/10. PRN IV Dilaudid given once then switched to oral. Scheduled Robaxin, Atarax, IV Toradol and Suboxone given. Tolerating full clear liquid. Reported feeling nausea but declined Zofran but requested Ativan x2 because it helps with nausea upwith SBA. Will continue to provide supportive care. * Plan of Care - Ayala Arevalo RN - 12/06/2022 6:26 AM CDT Goal Outcome Evaluation: Patient alert and oriented x4, vital sign stable, on room air, IV Dilaudid q2hrs, Ativan, Zofran,and Mylicon given this shift, Patient Is on IV LR 125 ml continuing fluids, has nicotine patch on right arm, CMS intact, patient Is NPO for medical reasons, ambulated to bathroom, voiding adequately. Discharge TBD. Will continue to provide supportive cares. * Plan of Care - Lillian Michele RN - 12/06/2022 12:21 AM CDT Goal Outcome Evaluation: Patient is A&Ox4. Was C/O pain to the right lower abdomen 7-810. Nonverbal pain indicators areabsent. Pain has been managed by PRN IV dilaudid Q 2 hrs and scheduled atarax and robaxin. VS are stable. RA. CMS intact. Stand by assist for ambulation. NPO. LR running. C/O nausea, ativan given. Novomiting. BG check Q4hrs. Voiding without difficulty. NO BM. We will continue to monitor. * Plan of Care - Thuy Ellis RN - 12/05/2022 10:44 AM CDT Pt. A&O, SBA for mobility, has pain in her abdominal area 04/19, got KY IV Dilaudid @ 2 hr, medications, pt. Is on IV LR 125 ml/hr continuing fluids, CMS intact, pt. Is NPO for medical reasons, on BG check, has nicotine patch on right arm, voiding adequately. BP (!) 143/81 Pulse 73 Temp 98 ??F (36.7 ??C) (Temporal) Resp 18 Ht 1.727 m (5' 8) Wt 104.3 kg (230 lb) LMP (LMP Unknown) SpO2 95% BMI 34.97 kg/m?? * Plan of Care - Franchesca Chandra RN - 12/05/2022 6:42 AM CDT Goal Outcome Evaluation: Pt alert and oriented, vital signs stable, on RA, pain managed with Dilaudid, Pt refused Zofran fornausea, stating that Ativan works better for her with nausea in the setting of pancreatitis. PIV infusing LR @ 200ml/hr. Pt has been maintained on NPO and contact precaution. BG checks Q4hrs, one dose of Zofran administered this AM. Nursing will continue to monitor. * Plan of Care - Lillian Michele RN - 12/04/2022 8:55 PM CDT Goal Outcome Evaluation: Patient is A&Ox4. In pleasant mood, watching TV. She was C/O pain to the right lower abdomen -02/17. No nonverbal pain indications. Pain has been managed by PRN IV dilaudid Q 2-3hrs and scheduledatarax and robaxin. Refused PO dilaudid by stating, It makes me sick. VS are stable. RA. Stand by assist for ambulation. NPO. LR running. C/O nausea, ativan given. No vomiting. BG check Q4hrs. Voiding without difficulty. Had loose stool one time. We will continue to monitor. * Plan of Care - Thuy Ellis RN - 12/04/2022 2:54 PM CDT Pt. A&O, SBA for mobility has pain constantly in her abdominal area got PRN IV Dilaudid q 2 hrsper pt. Request, on IV LR continuing fluids 200 ml/hr, NPO for medical reason, voided adequately, got several BMs on this shift, Pt is on BG check @ 4 hrs. BP 125/73 Pulse 80 Temp 97.8 ??F (36.6 ??C) (Temporal) Resp 16 Ht 1.727 m (5' 8) Wt 104.3 kg (230 lb) LMP (LMP Unknown) SpO2 94% BMI 34.97 kg/m?? * Care Plan - John Wu RN - 12/04/2022 6:04 AM CDT Shift from [id number] Inpatient Progress Note: For complete assessment see flow sheet documentation. Acute on chronic Pancreatitis Orientation: A/O x 4 Neuro: Intact Pain status: Consistenly ratting pain at 8/10 and request PRN IV Dilaudid Q1H. Gave IV dilaudid 0.5mg at 0102, [id number], 0629 and Ativan @ 0413 Activity: SBA Peripheral edema: Slight edema LLE and Right upper arm Resp: WNL Cardiac: WNL GI: WNL no loose stool during shift : Up voiding x 2 during shift Skin: WNL LDA: PIV Infusions: LR at 125ml/hr Diet: NPO at midnight Discharge Plan: TBD, Home with spouse * Plan of Care - Lillian Michele RN - 12/03/2022 10:33 PM CDT Goal Outcome Evaluation: Patient admitted to the unit at 1730. A&Ox4; able to communicate needs and concerns. In pleasant mood, watching TV. She was C/O pain 7-8. Pain has been managed by PRN IV dilaudid. BP elevated. Hospitalitis updated. Stand by assist for ambulation. C/O nausea and Zofran administered Q4 hrs. Refused PO medication except for Klonopin and Suboxone. NPO. LR running. Urine collected via straight cath. for UA. We will continue to monitor. * Pharmacy-Admission Medication History - Berna Sotleo, [facility] - 12/03/2022 2:04 PM CDT Pharmacist Admission Medication History Admission medication history is complete. The information provided in this note is only as accurateas the sources available at the time of the update. Medication reconciliation/reorder completed by provider prior to medication history? No Information Source(s): Patient and CareEverywhere/SureScripts via in-person Patient manages her own medications, reports no changes since her last admission at [facility] in October 2022. 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 Pertinent Information: Has not taken her mediations in the past 3-4 days d/t to N/V. Colestipol, fenofibrate, rosuvastatin have not been filled since Jun 2022 although pt reports she still takes these medications. Changes made to CHARGE NURSE medication list: ??? Added: None ??? Deleted: None ??? Changed: Non Allergies reviewed with patient and updates made in EHR: yes Medication History Completed By: Berna Sotelo, [place], [facility] December 03, 2022 Prior to Admission medications Medication Sig Last Dose Taking? Auth Provider Community Outreach Manager End Date albuterol (PROAIR HFA/PROVENTIL HFA/VENTOLIN HFA) 108 (90 Base) MCG/ACT inhaler Inhale 2 puffs intothe lungs every 4 hours as needed for shortness of breath / dyspnea or wheezing More than a month at - Yes Dyan Fuentes MD Yes amLODIPine (NORVASC) 10 MG tablet Take 1 tablet (10 mg) by mouth daily Past Week at - Yes Dyan Fuentes MD Yes aspirin 81 MG EC tablet Take 81 mg by mouth daily Past Week at - Yes Unknown, Entered By History brexpiprazole (REXULTI) 2 MG tablet Take 2 mg by mouth daily Past Week at - Yes Unknown, Entered ByHistory buprenorphine HCl-naloxone HCl (SUBOXONE) 2-0.[address] 1 Film under the tongue 3 times daily OK to fill 11/27/22 start 11/29/22. May refill every 30 days. Past Week at - Yes Mary Del Cid, RAFAEL calcium carbonate (OS-ALISA) 1500 (600 Ca) MG tablet Take 1 tablet (600 mg) by mouth 2 times daily (with meals) Past Week at - Yes Len Adhikari MD clonazePAM (KLONOPIN) 1 MG tablet Take 1 mg by mouth 2 times daily Past Week at - Yes Unknown, Entered By History No colestipol (COLESTID) 1 g tablet Take 1 tablet by mouth 2 times daily Past Week at - Yes Reported, Patient Yes cyanocobalamin (CYANOCOBALAMIN) 1000 MCG/ML injection INJECT 1 ML (1000 MCG) INTRAMUSCULARLY EVERY 30 DAYS. DISCARD 28 DAYS AFTERFIRST USE Strength: 1,000 mcg/mL 2 weeks ago at 2 weeks ago Yes Dyan Fuentes MD desvenlafaxine (PRISTIQ) 100 MG 24 hr tablet TAKE 1 TABLET BY MOUTH EVERY DAY Past Week at - Yes Len Adhikari MD Yes desvenlafaxine (PRISTIQ) 50 MG 24 hr tablet TAKE 1 TABLET BY MOUTH ONCE DAILY TAKE WITH 100MG TABS FOR A TOTAL DAILY DOSE OF 150MGS Past Week at - Yes Dyan Fuentes MD Yes fenofibrate (TRICOR) 48 MG tablet Take 1 tablet (48 mg) by mouth daily Past Week at - Yes Dyan Fuentes MD Yes ferrous sulfate (FEROSUL) 325 (65 Fe) MG tablet Take 325 mg by mouth daily (with breakfast) Past Week at - Yes Len Adhikari MD hydrOXYzine (ATARAX) 25 MG tablet Take 25 mg by mouth 4 times daily Past Week Yes Unknown, Entered By History insulin aspart (NOVOLOG FLEXPEN) 100 UNIT/ML pen INJECT 1 UNIT FOR 50 POINTS ABOVE 150 WITH EACH MEAL (TOTAL DAILY DOSE 10-15 UNITS PER DAY) Past Week at - Yes Dyan Fuentes MD Yes levothyroxine (SYNTHROID/LEVOTHROID) 175 MCG tablet Take 2 tablets (350 mcg) by mouth daily Past Week at - Yes Katiana Read MD Yes methocarbamol (ROBAXIN) 500 MG tablet Take 2 tablets (1,000 mg) by mouth 4 times daily Past Week at- Yes Mary Del Cid, RAFAEL metoprolol tartrate (LOPRESSOR) 25 MG tablet TAKE 1 TABLET BY MOUTH TWICE A DAY Past Week at - Yes Dyan Fuentes MD Yes omega-3 acid ethyl esters (LOVAZA) 1 g capsule TAKE 2 CAPSULES BY MOUTH TWICE A DAY Past Week at - Yes Len Adhikari MD pantoprazole (PROTONIX) 40 MG EC tablet Take 1 tablet (40 mg) by mouth daily Past Week at - Yes Dyan uFentes MD Potassium Gluconate 595 MG CAPS Take 1 capsule by mouth daily Past Week Yes Len Adhikari MD risperiDONE (RISPERDAL M-TABS) 0.[address] 0.5 mg under the tongue every morning Past Week YesUnknown, Entered By History No rosuvastatin (CRESTOR) 40 MG tablet Take 1 tablet (40 mg) by mouth daily Past Week at - Yes Dyan Fuentes MD Yes Vitamin D3 (VITAMIN D, CHOLECALCIFEROL,) 25 mcg (1000 units) tablet Take 1 tablet by mouth daily Past Week at - Yes Unknown, Entered By History Continuous Blood Gluc Wringer Operator (DEXCOM G6 PROSTHETICS ASSISTANT) ANITA USE DAILY DME at [facility] Katiana Read MD Continuous Blood Gluc Sensor (DEXCOM G6 SENSOR) MISC USE 1 SENSOR EVERY 10 DAYS DME at [facility] Katiana Read MD Continuous Blood Gluc Transmit (DEXCOM G6 TRANSMITTER) MISC Change every 3 months to continuously monitor blood glucose. DME at [facility] Katiana Read MD EPINEPHrine (ANY BX GENERIC EQUIV) 0.3 MG/0.3ML injection 2-pack Inject 0.3 mLs (0.3 mg) into the muscle as needed for anaphylaxis (EPI-PEN) prn Dyan Fuentes MD insulin glargine (BASAGLAR KWIKPEN) 100 UNIT/ML pen Inject 10 Units Subcutaneous every morning 4 days ago at 4 days ago Dyan Fuentes MD Yes naloxone (NARCAN) 4 MG/0.1ML nasal spray [place] 1 spray (4 mg) into one nostril alternating nostrilsonce as needed for opioid reversal prn at prn Mary Del Cid NP Yes nitroGLYcerin (NITROSTAT) 0.[address] 1 tablet (0.4 mg) under the tongue every 5minutes as needed for chest pain prn at prn Len Adhikari MD Yes nystatin (MYCOSTATIN) 149451 UNIT/GM external ointment Apply topically 2 times daily as needed prn at prn Unknown, Entered By History ondansetron (ZOFRAN) 8 MG tablet Take 1 tablet (8 mg) by mouth every 8 hours as needed for nausea prn at prn Dyan Fuentes MD simethicone (MYLICON) 80 MG chewable tablet Take 1 tablet (80 mg) by mouth every 6 hours as needed for flatulence or cramping prn at prn Melissa Ivan PA-C documented in this encounter Plan of Treatment Upcoming Encounters Date Type Department Care Team (Late st Contact Info) Description 08/18/2023 3:00 PM PROFESSIONAL NURSING TUTOR Office Visit [facility] [address] [place] [address] Katiana Read MD [address] [place] [address] Scheduled Referrals Name Type Priority Associated Diagnoses Orde r Schedule Medication Therapy Management Referral Referral Routine Hypothyroidism, unspecified type Ordered: 12/07/2022 documented as of this encounter Procedures Procedure Name Priority Date/Time Associated Diagnosis Comments GLUCOSE BY METER Routine 2022 2:09 PM CDT US ABDOMEN COMPLETE WITH DOPPLER COMPLETE Routine 2022 8:56 AM CDT MAGNESIUM Routine 2022 6:54 AM CDT COMPREHENSIVE METABOLIC PANEL Routine 2022 6:54 AM CDT CBC WITH PLATELETS Routine 2022 6: 54 AM CDT GLUCOSE BY METER Routine 2022 2:33 AM CDT GLUCOSE BY METER Routine 12/10/2022 10:1 8 PM CDT GLUCOSE BY METER Routine 12/10/2022 4:59 PM CDT GLUCOSE BY METER Routine 12/10/2022 1:30 PM CDT MORPHOLOGY TRACKING Routine 12/10/2022 1 :14 PM CDT BLOOD MORPHOLOGY PATHOLOGIST REVIEW Routine 12/10/2022 1:14 PM CDT CBC WITH PLATELETS AND DIFFERENTIAL Routine 12/10/2022 1:14 PM CDT RETICULOCYTE COUNT Routine 12/10/2022 1: 14 PM CDT BLOOD MORPHOLOGY PATHOLOGIST REVIEW Routine 12/10/2022 1:[address] ABDOMEN PELVIS W CONTRAST RAFAELA 12/10/2022 11:58 AM CDT GLUCOSE BY METER Routine 12/10/2022 7:19 AM CDT MAGNESIUM Routine 12/10/2022 6:55 AM CDT COMPREHENSIVE METABOLIC PANEL Routine 12/10/2022 6:55 AM CDT CBC WITH PLATELETS Routine 12/10/2022 6: 55 AM CDT GLUCOSE BY METER Routine 12/10/2022 1:59 AM CDT GLUCOSE BY METER Routine 12/09/2022 9:48 PM CDT GLUCOSE BY METER Routine 12/09/2022 6:02 PM CDT GLUCOSE BY METER Routine 12/09/2022 12:3 0 PM CDT GLUCOSE BY METER Routine 12/09/2022 8:19 AM CDT CBC WITH PLATELETS Routine 12/09/2022 8: 06 AM CDT MAGNESIUM Routine 12/09/2022 7:08 AM CDT COMPREHENSIVE METABOLIC PANEL Routine 12/09/2022 7:08 AM CDT GLUCOSE BY METER Routine 12/09/2022 1:52 AM CDT GLUCOSE BY METER Routine 12/08/2022 9:37 PM CDT GLUCOSE BY METER Routine 12/08/2022 5:37 PM CDT GLUCOSE BY METER Routine 12/08/2022 12:3 1 PM CDT GLUCOSE BY METER Routine 12/08/2022 8:25 AM CDT MAGNESIUM Routine 12/08/2022 6:28 AM CDT COMPREHENSIVE METABOLIC PANEL Routine 12/08/2022 6:28 AM CDT GLUCOSE BY METER Routine 12/08/2022 2:20 AM CDT GLUCOSE BY METER Routine 12/07/2022 9:20 PM CDT GLUCOSE BY METER Routine 12/07/2022 5:41 PM CDT GLUCOSE BY METER Routine 12/07/2022 11:4 7 AM CDT GLUCOSE BY METER Routine 12/07/2022 6:59 AM CDT EXTRA TUBE Routine 12/07/2022 6:11 AM CDT EXTRA PURPLE TOP TUBE Routine 12/07/2022 6:11 AM CDT MAGNESIUM Routine 12/07/2022 6:11 AM CDT COMPREHENSIVE METABOLIC PANEL Routine 12/07/2022 6:11 AM CDT GLUCOSE BY METER Routine 12/07/2022 2:22 AM CDT GLUCOSE BY METER Routine 12/06/2022 10:1 4 PM CDT GLUCOSE BY METER Routine 12/06/2022 5:31 PM CDT GLUCOSE BY METER Routine 12/06/2022 2:49 PM CDT GLUCOSE BY METER Routine 12/06/2022 2:14 PM CDT GLUCOSE BY METER Routine 12/06/2022 10:0 6 AM CDT PLATELET COUNT Routine 12/06/2022 6:20 AM CDT MAGNESIUM Routine 12/06/2022 6:20 AM CDT COMPREHENSIVE METABOLIC PANEL Routine 12/06/2022 6:20 AM CDT GLUCOSE BY METER Routine 12/06/2022 2:16 AM CDT GLUCOSE BY METER Routine 12/05/2022 9:49 PM CDT GLUCOSE BY METER Routine 12/05/2022 6:07 PM CDT GLUCOSE BY METER Routine 12/05/2022 2:18 PM CDT GLUCOSE BY METER Routine 12/05/2022 10:0 9 AM CDT MAGNESIUM Routine 12/05/2022 5:59 AM CDT COMPREHENSIVE METABOLIC PANEL Routine 12/05/2022 5:59 AM CDT GLUCOSE BY METER Routine 12/05/2022 5:42 AM CDT GLUCOSE BY METER Routine 12/05/2022 1:41 AM CDT MAGNESIUM Timed 12/04/2022 9:54 PM CDT GLUCOSE BY METER Routine 12/04/2022 9:38 PM CDT GLUCOSE BY METER Routine 12/04/2022 5:59 PM CDT MAGNESIUM Routine 12/04/2022 3:27 PM CDT GLUCOSE BY METER Routine 12/04/2022 2:06 PM CDT GLUCOSE BY METER Routine 12/04/2022 10:0 1 AM CDT LIPASE Routine 12/04/2022 7:03 AM CDT COMPREHENSIVE METABOLIC PANEL Routine 12/04/2022 7:03 AM CDT GLUCOSE BY METER Routine 12/04/2022 6:23 AM CDT GLUCOSE BY METER Routine 12/04/2022 2:01 AM CDT URINE MACROSCOPIC WITH REFLEX TO MICRO Routine 12/03/2022 11:11 PM CDT GLUCOSE BY METER Routine 12/03/2022 9:59 PM CDT GLUCOSE BY METER Routine 12/03/2022 9:25 PM CDT GLUCOSE BY METER Routine 12/03/2022 6:49 PM CDT TROPONIN T, HIGH SENSITIVITY STAT 12/03/2022 12:[address] CHEST PULMONARY EMBOLISM W CONTRAST STAT 12/03/2022 11:59 AM CDT ROUTINE UA WITH MICROSCOPIC REFLEX TO CULTURE STAT 12/03/2022 11:09 AM CDT D DIMER QUANTITATIVE STAT 12/03/2022 9:56 AM CDT CBC WITH PLATELETS AND DIFFERENTIAL STAT 12/03/2022 9:46 AM CDT TROPONIN T, HIGH SENSITIVITY STAT 12/03/2022 9:46 AM CDT CBC WITH PLATELETS & DIFFERENTIAL STAT 12/03/2022 9:46 AM CDT TSH WITH FREE T4 REFLEX STAT 12/03/2022 9:46 AM CDT T4 FREE STAT 12/03/2022 9:46 AM CDT NT PROBNP INPATIENT STAT 12/03/2022 9 :46 AM CDT LIPASE Add-On 12/03/2022 9:46 AM CDT HEPATIC FUNCTION PANEL Add-On 9:46 AM CDT BASIC METABOLIC PANEL STAT 12/03/2022 9:46 AM CDT EKG 12-LEAD, TRACING ONLY STAT 12/03/2022 9:38 AM CDT documented in this encounter Results * (ABNORMAL) Glucose by meter (2022 2:09 PM CDT) GLUCOSE BY METER POCT 206(H) 70 - 99 mg/dL 2022 2:15 PM CDT LABORATORY POC Blood, Capillary BLOOD SPECIMEN / Unknown 2022 2:09 PM CDT 2022 2:15 PM CDT Oswaldo Awad DO LAB - BEAKER POCT LABORATORY [facility] [address] [facility] (1st floor, no room number) [place] [address], [facility] [phone] * US Abdomen Complete w Doppler Complete (2022 8:56 AM CDT) Anatomical Region Laterality Modality Abdomen/Pelvis, Vascular Ultraso und 2022 8:56 AM CDT Impressions 2022 2:07 PM CDT IMPRESSION: 1. ??Hepatic steatosis. 2. ??Splenomegaly. 3. ??Normal abdominal liver duplex. Narrative 2022 2:07 PM CDT EXAM: ULTRASOUND ABDOMEN COMPLETE WITH DOPPLER COMPLETE LOCATION: [facility] DATE/TIME: 2022, 8:56 AM CDT INDICATION: Question splenic vein thrombosis on CT scan in one with ongoing unexplained abdominal pain. COMPARISON: CT abdomen and pelvis on 12/10/2022. TECHNIQUE: Complete abdominal ultrasound. Color flow with spectral Doppler and waveform analysis performed. FINDINGS: GALLBLADDER: Surgically absent. BILE DUCTS: No biliary dilatation. The common duct measures 9 mm. LIVER: Demonstrates increased parenchymal echogenicity. No focal mass. RIGHT KIDNEY: Normal size. Normal echogenicity with no hydronephrosis or mass. LEFT KIDNEY: Normal size. No hydronephrosis. SPLEEN: The spleen is enlarged measuring 13.8 cm in craniocaudal dimension.. PANCREAS: The visualized portion of the pancreas appears normal, although the pancreatic tail was not well-seen/obscured by overlying bowel gas. AORTA: Normal in caliber. IVC: Normal where visualized. No ascites. ABDOMINAL DUPLEX: The hepatic artery, hepatic veins, IVC, portal veins, and splenic vein are patent with flow in the normal direction. Procedure Note Shawn Ireland MD - 2022 EXAM: ULTRASOUND ABDOMEN COMPLETE WITH DOPPLER COMPLETE LOCATION: [facility] DATE/TIME: 2022, 8:56 AM CDT INDICATION: Question splenic vein thrombosis on CT scan in one withongoing unexplained abdominal pain. COMPARISON: CT abdomen and pelvis on 12/10/2022. TECHNIQUE: Complete abdominal ultrasound. Color flow with spectral Dopplerand waveform analysis performed. FINDINGS: GALLBLADDER: Surgically absent. BILE DUCTS: No biliary dilatation. The common duct measures 9 mm. LIVER: Demonstrates increased parenchymal echogenicity. No focal mass. RIGHT KIDNEY: Normal size. Normal echogenicity with no hydronephrosis ormass. LEFT KIDNEY: Normal size. No hydronephrosis. SPLEEN: The spleen is enlarged measuring 13.8 cm in craniocaudaldimension.. PANCREAS: The visualized portion of the pancreas appears normal, althoughthe pancreatic tail was not well-seen/obscured by overlying bowel gas. AORTA: Normal in caliber. IVC: Normal where visualized. No ascites. ABDOMINAL DUPLEX: The hepatic artery, hepatic veins, IVC, portal veins,and splenic vein are patent with flow in the normal direction. IMPRESSION: 1. Hepatic steatosis. 2. Splenomegaly. 3. Normal abdominal liver duplex. Shirlene Islas MD [facility] ORDERABLES * Magnesium (2022 6:54 AM CDT) Magnesium 1.7 1.7 - 2.3 mg/dL 2022 7:27 AM CDT RH LABORATORY Blood STRUCTURE OF RIGHT HAND / Unknown Venipuncture / Unknown 2022 6:54 AM CDT 2022 7:03 AM CDT Shirlene Islas MD LAB - BLOOD ORDERABL ES RH LABORATORY [facility] [address] Lab (1st floor, no room number) [place] [address], [facility] [phone] * (ABNORMAL) CBC with platelets (2022 6:54 AM CDT) WBC Count 2.8(L) 4.0 - 11.0 10e3/uL 2022 7:07 AM CDT RH LABORATORY RBC Count 2.88(L) 3.80 - 5.20 10e6/uL 2022 7:07 AM CDT RH LABORATORY Hemoglobin 9.5(L) 11.7 - 15.7 g/dL 2022 7:07 AM CDT RH LABORATORY Hematocrit 29.1(L) 35.0 - 47.0 % 2022 7:07 AM CDT RH LABORATORY MCV 101(H) 78 - 100 fL 2022 7:07 AM CDT RH LABORATORY MCH 33.0 26.5 - 33.0 pg 2022 7:07 AM CDT RH LABORATORY MCHC 32.6 31.5 - 36.5 g/dL 2022 7:07 AM CDT RH LABORATORY RDW 15.7(H) 10.0 - 15.0 % 2022 7:07 AM CDT RH LABORATORY Platelet Count 154 150 - 450 10e3/uL 2022 7:07 AM CDT RH LABORATORY Blood STRUCTURE OF RIGHT HAND / Unknown Venipuncture / Unknown 2022 6:54 AM CDT 2022 7:03 AM CDT Shirlene Islas MD LAB - BLOOD ORDERABL ES LABORATORY [facility] [address] Lab (1st floor, no room number) [place] [address], [facility] [phone] * (ABNORMAL) Comprehensive metabolic panel (2022 6:54 AM CDT) Sodium 138 136 - 145 mmol/L 2022 7:28 AM CDT LABORATORY Potassium 4.3 3.4 - 5.3 mmol/L 2022 7:28 AM CDT LABORATORY Chloride 104 98 - 107 mmol/L 2022 7:28 AM CDT LABORATORY Carbon Dioxide (CO2) 24 22 - 29 mmol/L 2022 7:28 AM CDT LABORATORY Anion Gap 10 7 - 15 mmol/L 2022 7:28 AM CDT LABORATORY Urea Nitrogen 7.9(L) 8.0 - 23.0 mg/dL 2022 7:28 AM CDT LABORATORY Creatinine 1.00(H) 0.51 - 0.95 mg/dL 2022 7:28 AM CDT LABORATORY Calcium 8.5(L) 8.8 - 10.2 mg/dL 2022 7:28 AM CDT LABORATORY Glucose 135(H) 70 - 99 mg/dL 2022 7:28 AM CDT LABORATORY Alkaline Phosphatase 82 35 - 104 U/L 2022 7:28 AM CDT LABORATORY AST 15 10 - 35 U/L 2022 7:28 AM CDT LABORATORY ALT 8(L) 10 - 35 U/L 2022 7:28 AM CDT LABORATORY Protein Total 5.1(L) 6.4 - 8.3 g/dL 2022 7:28 AM CDT LABORATORY Albumin 2.8(L) 3.5 - 5.2 g/dL 2022 7:28 AM CDT LABORATORY Bilirubin Total 0.2 <=1.2 mg/dL 2022 7:28 AM CDT LABORATORY GFR Estimate 63 >60 mL/min/1.7 3m2 2022 7:28 AM CDT LABORATORY Comment:eGFR calculated usin 2020 CKD-EPI equation. Blood STRUCTURE OF RIGHT HAND / Unknown Venipuncture / Unknown 2022 6:54 AM CDT 2022 7:03 AM CDT Shirlene Islas MD LAB - BLOOD ORDERABL ES [facility] Lab [address] Lab (1st floor, no room number) [place] [address], [place] [phone] * (ABNORMAL) Glucose by meter (2022 2:33 AM CDT) GLUCOSE BY METER POCT 176(H) 70 - 99 mg/dL 2022 2:41 AM CDT LABORATORY POC Blood, Capillary BLOOD SPECIMEN / Unknown 2022 2:33 AM CDT 2022 2:41 AM CDT Oswaldo Awad DO LAB - BEAKER POCT Performing Organization Address City/[facility]/ZIP Co de Phone Number LABORATORY [facility] Lab [address] Lab (1st floor, no room number) [place] [address], [place] [phone] * (ABNORMAL) Glucose by meter (12/10/2022 10:18 PM CDT) GLUCOSE BY METER POCT 181(H) 70 - 99 mg/dL 12/10/2022 10:25 PM CDT LABORATORY POC Blood, Capillary BLOOD SPECIMEN / Unknown 12/10/2022 10:18 PM CDT 12/10/2022 10:25 PM CDT Oswaldo Awad DO LAB - BEAKER POCT LABORATORY [facility] Lab [address] Lab (1st floor, no room number) [place] [address], [place] [phone] * (ABNORMAL) Glucose by meter (12/10/2022 4:59 PM CDT) GLUCOSE BY METER POCT 175(H) 70 - 99 mg/dL 12/10/2022 5:06 PM CDT LABORATORY POC Blood, Capillary BLOOD SPECIMEN / Unknown 12/10/2022 4:59 PM CDT 12/10/2022 5:06 PM CDT Oswaldo Padilla Ritesh DO [facility] POCT Performing Organization Address City/[facility]/ZIP Co de Phone Number LABORATORY [facility] Lab [address] Lab (1st floor, no room number) [place] [address], [facility] [phone] * (ABNORMAL) Glucose by meter (12/10/2022 1:30 PM CDT) GLUCOSE BY METER POCT 114(H) 70 - 99 mg/dL 12/10/2022 1:38 PM CDT LABORATORY POC Blood, Capillary BLOOD SPECIMEN / Unknown 12/10/2022 1:30 PM CDT 12/10/2022 1:38 PM CDT Oswaldo Awad DO [facility] POCT Performing Organization Address [facility]/ZIP Co de Phone Number [facility] Lab [address] Lab (1st floor, no room number) [place] [phone], [facility] [phone] * Morphology Tracking (12/10/2022 1:14 PM CDT) Blood STRUCTURE OF RIGHT HAND / Unknown Venipuncture / Unknown 12/10/2022 1:14 PM CDT 12/10/2022 1:24 PM CDT Shirlene Islas MD LAB - BLOOD ORDERABL ES Performing Organization Address City/[facility]/ZIP Co de Phone Number [facility] Lab [address] Lab (1st floor, no room number) [place] [address], [place] [phone] * (ABNORMAL) Reticulocyte count (12/10/2022 1:14 PM CDT) % Reticulocyte 2.2(H) 0.5 - 2.0 % 12/10/2022 1:41 PM CDT RH LABORATORY Absolute Reticulocyte 0.066 0.025 - 0.095 10e6/uL 12/10/2022 1:41 PM CDT RH LABORATORY Blood STRUCTURE OF RIGHT HAND / Unknown Venipuncture / Unknown 12/10/2022 1:14 PM CDT 12/10/2022 1:24 PM CDT Shirlene Islas MD LAB - BLOOD ORDERABL ES [facility] LABORATORY [facility] [address] [facility] Lab (1st floor, no room number) [place] [address], [facility] [phone] * (ABNORMAL) CBC with platelets and differential (12/10/2022 1:14 PM CDT) WBC Count 2.6(L) 4.0 - 11.0 10e3/uL 12/10/2022 1:41 PM CDT RH LABORATORY RBC Count 3.06(L) 3.80 - 5.20 10e6/uL 12/10/2022 1:41 PM CDT RH LABORATORY Hemoglobin 10.1(L) 11.7 - 15.7 g/dL 12/10/2022 1:41 PM CDT RH LABORATORY Hematocrit 31.1(L) 35.0 - 47.0 % 12/10/2022 1:41 PM CDT RH LABORATORY MCV 102(H) 78 - 100 fL 12/10/2022 1:41 PM CDT RH LABORATORY MCH 33.0 26.5 - 33.0 pg 12/10/2022 1:41 PM [facility]T [facility] MCHC 32.5 31.5 - 36.5 g/dL 12/10/2022 1:41 PM [facility]T [facility] RDW 16.0(H) 10.0 - 15.0 % 12/10/2022 1:41 PM [facility]T [facility] Platelet Count 155 150 - 450 10e3/uL 12/10/2022 1:41 PM [facility]T [facility] % Neutrophils 48 % 12/10/2022 1:41 PM CDT [facility] % Lymphocytes 43 % 12/10/2022 1:41 PM CDT [facility] % Monocytes 7 % 12/10/2022 1:41 PM CDT [facility] % Eosinophils 0 % 12/10/2022 1:41 PM CDT [facility] % Basophils 0 % 12/10/2022 1:41 PM CDT [facility] % Immature Granulocytes 2 % 12/10/2022 1:41 PM CDT [facility] NRBCs per 100 WBC 0 <1 /100 023 1:41 PM CDT [facility] Absolute Neutrophils 1.3(L) 1.6 - 8.3 10e3/uL 12/10/2022 1:41 PM CDT [facility] Absolute Lymphocytes 1.1 0.8 - 5.3 10e3/uL 12/10/2022 1:41 PM CDT [facility] Absolute Monocytes 0.2 0.0 - 1.3 10e3/uL 12/10/2022 1:41 PM CDT [facility] Absolute Eosinophils 0.0 0.0 - 0.7 10e3/uL 12/10/2022 1:41 PM CDT [facility] Absolute Basophils 0.0 0.0 - 0.2 10e3/uL 12/10/2022 1:41 PM CDT [facility] Absolute Immature Granulocytes 0.0 <=0.4 10e3/uL 12/10/2022 1:41 PM CDT [facility] Absolute NRBCs 0.0 10e3/uL 12/10/2022 1:41 PM CDT [facility] Blood STRUCTURE OF RIGHT HAND / Unknown Venipuncture / Unknown 12/10/2022 1:14 PM CDT 12/10/2022 1:24 PM CDT Shirlene Islas MD LAB - BLOOD ORDERABL ES [facility] [address] Lab (1st floor, no room number) [place] [address], [facility] [phone] * Bld morphology pathology review (12/10/2022 1:14 PM CDT) Final Diagnosis Peripheral blood for morphology: -Mild normochromic, macrocytic anemia without evidence of red cell regeneration -Moderate leukopenia with normal absolute numbers of neutrophils and lymphocytes and normal leukocyte morphologies -Low normal platelet count 12/13/2022 2:59 PM [facility] Comment Patient has a number of medical problems. The anemia and macrocytosis may relate to the current hypothyroid state. Leukopenia and thrombocytopenia are not commonly associated with hypothyroidism. There is also some history of alcohol use and nonalcoholic fatty liver disease. The former may be associated with bone marrow suppression. Please correlate clinically. There is no evidence of abnormal leukocyte morphology or circulating blasts. 12/13/2022 2:59 PM [facility] Clinical Information Pancytopenia 12/13/2022 2:59 PM [facility] Peripheral Smear ERYTHROCYTES: The hemoglobin is mildly decreased and the cells are macrocytic. The macrocytes are round and otherwise morphologically normal. Polychromasia is not evident. LEUKOCYTES: White count is moderately decreased. Neutrophils and lymphocytes are normal in relative percent in absolute number. They are also morphologically normal. PLATELETS: The platelet count is at the low end of the normal range and morphology is normal. For patients over 18 years old, anemia and quantitative abnormalities of WBC and platelets (if present) may be further stratified as follows: Hemoglobin (g/dL) in (females)/males: (9.7 - 11.6)/ 10.0 - 12.6: Mild anemia (7.7 - 9.6)/ 7.7 - 9.6: Moderate anemia Less than 7.7: Marked anemia WBC (10^9/L): Greater than 50.0: Marked leukocytosis 18.0 - 50.0: Moderate leukocytosis 11.1 - 17.9: Mild leukocytosis 3.0 - 3.9: Mild leukopenia 2.0 - 2.9: Moderate leukopenia Less than 2.0: Marked leukopenia Platelets (10^9/L): Greater than 900: Marked thrombocytosis 601 - 900: Moderate thrombocytosis 451 - 600: Mild thrombocytosis 100 - 149: Mild thrombocytopenia 50 - 99: Moderate thrombocytopenia Less than 50: Marked thrombocytopenia 12/13/2022 2:59 PM [facility] Peripheral Hematologic Data CBC with auto differential: RESULT VALUE REF RANGE UNITS ABNORMALITY WBC Count 2.6 4.0-11.0 10e3/uL Low RBC Count 3.06 3.80-5.20 10e6/uL Low Hemoglobin 10.1 11.7-15.7 g/dL Low Hematocrit 31.1 35.0-47.0 % Low MCV 102 78-100 fL High MCH 33.0 26.5-33.0 pg Normal MCHC 32.5 31.5-36.5 g/dL Normal RDW 16.0 10.0-15.0 % High Platelet Count 155 150-450 10e3/uL Normal % Neutrophils 48 % % Lymphocytes 43 % % Monocytes 7 % % Eosinophils 0 % % Basophils 0 % % Immature Granulocytes 2 % NRBCs per 100 WBC 0 <1 /100 Normal Absolute Neutrophils 1.3 1.6-8.3 10e3/uL Low Absolute Lymphocytes 1.1 0.8-5.3 10e3/uL Normal Absolute Monocytes 0.2 0.0-1.3 10e3/uL Normal Absolute Eosinophils 0.0 0.0-0.7 10e3/uL Normal Absolute Basophils 0.0 0.0-0.2 10e3/uL Normal Absolute Immature Granulocytes 0.0 <=0.4 10e3/uL Normal 12/13/2022 2:59 PM CDT [facility] Performing Labs The technical component of this testing was completed at [facility], [facility] and [facility] 12/13/2022 2:59 PM CDT [facility] Blood BLOOD SPECIMEN / Unknown Venipuncture / Unknown 12/10/2022 1:14 PM CDT 12/10/2022 1:25 PM CDT Comment:CBC with platelets d ifferential and Reticulocyte count should be ordered concurrently with the peripheral smear (all tests performed on the same tube of blood). The concurrent CBC with platelets differential and Reticulocyte count are incorporated into the final peripheral smear report and are necessary for interpretation. Shirlene TOSCANO - JOHN PAUL MOTA [facility] [address] 1[address], [address] [place] [address] * CT Abdomen Pelvis w Contrast (12/10/2022 11:58 AM CDT) Anatomical Region Laterality Modality Abdomen/Pelvis, SUBRAD CT LAURA DY, UMP CT ABDOMEN PELVIS, RAD CT Computed Tomography Impressions 12/10/2022 12:29 PM CDT IMPRESSION: No contrast visualized within the abdominal organs, likely due to contrast infiltration, within this limitation, there is: 1. No acute pathology in the abdomen or pelvis. 2. Hepatic steatosis and splenomegaly. 3. Small amount of free fluid in the pelvis of indeterminate etiology. 4. Scattered areas of pancreatic parenchymal calcification, likely sequela of chronic pancreatitis. 5. Enlarged venous collateral in the left upper quadrant, could be related to splenic vein occlusion. 6. Multiple nodular soft tissue densities and multiple foci of subcutaneous air within the lower anterior abdominal wall, could be related to medications injections. SHAWN IRELAND MD Narrative 12/10/2022 12:[address] ABDOMEN AND PELVIS WITH CONTRAST ??12/10/2022 11:58 AM HISTORY: ??Ongoing severe abdominal pain with nausea and inability to take adequate po. TECHNIQUE: CT scan obtained of the abdomen, and pelvis without IV contrast. Radiation dose for this scan was reduced using automated exposure control, adjustment of the mA and/or kV according to patient size, or iterative reconstruction technique. COMPARISON: CT abdomen and pelvis on 10/14/2022. FINDINGS: No contrast visualized within the abdominal organs, likely due to being infiltrated. Lower chest: Bilateral pulmonary opacities, likely atelectasis. Abdomen/pelvis:Limited evaluation of the abdominal organs due to lack of intravenous contrast, within this limitation, there is: Hepatobiliary: Diffuse hypodense appearance of the liver, likely due to underlying hepatic steatosis. The gallbladder is surgically absent. Pancreas: Scattered area of pancreatic parenchymal calcification, likely sequela of chronic pancreatitis. The pancreatic tail is not visualized, likely a normal variant. Spleen: The spleen is enlarged measuring 13.8 cm in craniocaudal dimension. Adrenal glands: No adrenal nodules. Kidneys: No radiodense kidney/ureteral stones or hydronephrosis in the kidney. There is 1.4 cm cyst at the upper pole of the right kidney. Bowel: No abnormally dilated bowel loops. Peritoneum: Small amount of free fluid in the pelvis, of indeterminate etiology. No free peritoneal or portal venous gas. Pelvic organs: The uterus is not visualized, likely surgically absent. Vascular: Moderate atherosclerotic vascular calcification of the abdominal aorta and iliac vessels. Enlarged venous collateral in the left upper quadrant, could be a sequela of splenic venous occlusion. Lymph nodes: No significant abdominopelvic lymphadenopathy. Bones and soft tissue: Multiple nodular soft tissue densities and multiple foci of subcutaneous air in the lower anterior abdominal wall, could be related to medications injections. Postsurgical changes of right hip arthroplasty. Multilevel degenerative changes of the spine. Procedure Note Shawn Ireland MD - 12/10/2022 CT ABDOMEN AND PELVIS WITH CONTRAST 12/10/2022 11:58 AM HISTORY: Ongoing severe abdominal pain with nausea and inability to take adequate po. TECHNIQUE: CT scan obtained of the abdomen, and pelvis without IV contrast. Radiation dose for this scan was reduced using automated exposure control, adjustment of the mA and/or kV according to patient size, or iterative reconstruction technique. COMPARISON: CT abdomen and pelvis on 10/14/2022. FINDINGS: No contrast visualized within the abdominal organs, likely due to being infiltrated. Lower chest: Bilateral pulmonary opacities, likely atelectasis. Abdomen/pelvis:Limited evaluation of the abdominal organs due to lack of intravenous contrast, within this limitation, there is: Hepatobiliary: Diffuse hypodense appearance of the liver, likely due to underlying hepatic steatosis. The gallbladder is surgically absent. Pancreas: Scattered area of pancreatic parenchymal calcification, likely sequela of chronic pancreatitis. The pancreatic tail is not visualized, likely a normal variant. Spleen: The spleen is enlarged measuring 13.8 cm in craniocaudal dimension. Adrenal glands: No adrenal nodules. Kidneys: No radiodense kidney/ureteral stones or hydronephrosis in the kidney. There is 1.4 cm cyst at the upper pole of the right kidney. Bowel: No abnormally dilated bowel loops. Peritoneum: Small amount of free fluid in the pelvis, of indeterminate etiology. No free peritoneal or portal venous gas. Pelvic organs: The uterus is not visualized, likely surgically absent. Vascular: Moderate atherosclerotic vascular calcification of the abdominal aorta and iliac vessels. Enlarged venous collateral in the left upper quadrant, could be a sequela of splenic venous occlusion. Lymph nodes: No significant abdominopelvic lymphadenopathy. Bones and soft tissue: Multiple nodular soft tissue densities and multiple foci of subcutaneous air in the lower anterior abdominal wall, could be related to medications injections. Postsurgical changes of right hip arthroplasty. Multilevel degenerative changes of the spine. IMPRESSION: No contrast visualized within the abdominal organs, likely due to contrast infiltration, within this limitation, there is: 1. No acute pathology in the abdomen or pelvis. 2. Hepatic steatosis and splenomegaly. 3. Small amount of free fluid in the pelvis of indeterminate etiology. 4. Scattered areas of pancreatic parenchymal calcification, likely sequela of chronic pancreatitis. 5. Enlarged venous collateral in the left upper quadrant, could be related to splenic vein occlusion. 6. Multiple nodular soft tissue densities and multiple foci of subcutaneous air within the lower anterior abdominal wall, could be related to medications injections. SHAWN IRELAND MD Shirlene Islas MD IMG CT ORDERABLES * (ABNORMAL) Glucose by meter (12/10/2022 7:19 AM CDT) GLUCOSE BY METER POCT 197(H) 70 - 99 mg/dL 12/10/2022 7:25 AM CDT [facility] POC Blood, Capillary BLOOD SPECIMEN / Unknown 12/10/2022 7:19 AM CDT 12/10/2022 7:25 AM CDT Oswaldo HIGH - [facility] POCT LABORATORY [facility] [address] Lab (1st floor, no room number) [place] [address], [facility] [phone] * (ABNORMAL) CBC with platelets (12/10/2022 6:55 AM CDT) WBC Count 2.6(L) 4.0 - 11.0 10e3/uL 12/10/2022 7:30 AM CDT [facility] RBC Count 2.99(L) 3.80 - 5.20 10e6/uL 12/10/2022 7:30 AM CDT [facility] Hemoglobin 9.8(L) 11.7 - 15.7 g/dL 12/10/2022 7:30 AM CDT [facility] Hematocrit 30.0(L) 35.0 - 47.0 % 12/10/2022 7:30 AM CDT [facility] MCV 100 78 - 100 fL 12/10/2022 7:30 AM CDT [facility] MCH 32.8 26.5 - 33.0 pg 12/10/2022 7:30 AM CDT [facility] MCHC 32.7 31.5 - 36.5 g/dL 12/10/2022 7:30 AM CDT [facility] RDW 16.2(H) 10.0 - 15.0 % 12/10/2022 7:30 AM CDT [facility] Platelet Count 144(L) 150 - 450 10e3/uL 12/10/2022 7:30 AM CDT [facility] Blood STRUCTURE OF LEFT HAND / Unknown Venipuncture / Unknown 12/10/2022 6:55 AM CDT 12/10/2022 7:27 AM CDT Shirlene Islas MD LAB - BLOOD ORDERABL ES [facility] [address] Lab (1st floor, no room number) [place] [address], [facility] [phone] * (ABNORMAL) Magnesium (12/10/2022 6:55 AM CDT) Magnesium 1.6(L) 1.7 - 2.3 mg/dL 12/10/2022 7:49 AM CDT [facility] Blood STRUCTURE OF LEFT HAND / Unknown Venipuncture / Unknown 12/10/2022 6:55 AM CDT 12/10/2022 7:27 AM CDT Shirlene Islas MD LAB - BLOOD ORDERABL ES LABORATORY [facility] [address] Lab (1st floor, no room number) [place] [address], [facility] [phone] * (ABNORMAL) Comprehensive metabolic panel (12/10/2022 6:55 AM CDT) Sodium 139 136 - 145 mmol/L 12/10/2022 7:49 AM CDT [facility] Potassium 4.1 3.4 - 5.3 mmol/L 12/10/2022 7:49 AM CDT [facility] Chloride 106 98 - 107 mmol/L 12/10/2022 7:49 AM CDT [facility] Carbon Dioxide (CO2) 25 22 - 29 mmol/L 12/10/2022 7:49 AM CDT [facility] Anion Gap 8 7 - 15 mmol/L 12/10/2022 7:49 AM CDT [facility] Urea Nitrogen 6.7(L) 8.0 - 23.0 mg/dL 12/10/2022 7:49 AM CDT [facility] Creatinine 0.99(H) 0.51 - 0.95 mg/dL 12/10/2022 7:49 AM CDT [facility] Calcium 8.4(L) 8.8 - 10.2 mg/dL 12/10/2022 7:49 AM CDT [facility] Glucose 202(H) 70 - 99 mg/dL 12/10/2022 7:49 AM CDT [facility] Alkaline Phosphatase 88 35 - 104 U/L 12/10/2022 7:49 AM CDT [facility] AST 17 10 - 35 U/L 12/10/2022 7:49 AM CDT [facility] ALT 9(L) 10 - 35 U/L 12/10/2022 7:49 AM CDT [facility] Protein Total 4.9(L) 6.4 - 8.3 g/dL 12/10/2022 7:49 AM CDT [facility] Albumin 2.6(L) 3.5 - 5.2 g/dL 12/10/2022 7:49 AM CDT [facility] Bilirubin Total 0.2 <=1.2 mg/dL 12/10/2022 7:49 AM CDT [facility] GFR Estimate 64 >60 mL/min/1.7 3m2 12/10/2022 7:49 AM CDT [facility] Comment:eGFR calculated usin 2020 CKD-EPI equation. Blood STRUCTURE OF LEFT HAND / Unknown Venipuncture / Unknown 12/10/2022 6:55 AM CDT 12/10/2022 7:27 AM CDT Raquel Rahman PA-C LAB - BLOOD ORDERABLES Performing Organization Address City/[facility]/ZIP Co de Phone Number [facility] [address] Lab (1st floor, no room number) [place] [address], [facility] [phone] * (ABNORMAL) Glucose by meter (12/10/2022 1:59 AM CDT) GLUCOSE BY METER POCT 111(H) 70 - 99 mg/dL 12/10/2022 2:06 AM CDT LABORATORY POC Blood, Capillary BLOOD SPECIMEN / Unknown 12/10/2022 1:59 AM CDT 12/10/2022 2:06 AM CDT Oswaldo HIGH - [facility] POCT Performing Organization Address [facility]/ZIP Co de Phone Number LABORATORY [facility] Lab [address] Lab (1st floor, no room number) [place] [address], [place] [phone] * (ABNORMAL) Glucose by meter (12/09/2022 9:48 PM CDT) GLUCOSE BY METER POCT 180(H) 70 - 99 mg/dL 12/09/2022 9:57 PM CDT LABORATORY POC Blood, Capillary BLOOD SPECIMEN / Unknown 12/09/2022 9:48 PM CDT 12/09/2022 9:57 PM CDT Oswaldo HIGH - [facility] POCT Performing Organization Address City/[facility]/ZIP Co de Phone Number LABORATORY [facility] Lab [address] Lab (1st floor, no room number) [place] [address], [place] [phone] * (ABNORMAL) Glucose by meter (12/09/2022 6:02 PM CDT) GLUCOSE BY METER POCT 133(H) 70 - 99 mg/dL 12/09/2022 6:09 PM CDT [facility] POC Blood, Capillary BLOOD SPECIMEN / Unknown 12/09/2022 6:02 PM CDT 12/09/2022 6:09 PM CDT Oswalod Awad DO LAB - BEAKER POCT LABORATORY [facility] [address] Lab (1st floor, no room number) [place] [address], [place] [phone] * (ABNORMAL) Glucose by meter (12/09/2022 12:30 PM CDT) GLUCOSE BY METER POCT 180(H) 70 - 99 mg/dL 12/09/2022 12:37 PM CDT [facility] POC Blood, Capillary BLOOD SPECIMEN / Unknown 12/09/2022 12:30 PM CDT 12/09/2022 12:37 PM CDT Oswaldo HIGH - [facility] POCT LABORATORY [facility] Lab [address] Lab (1st floor, no room number) [place] [address], [place] [phone] * Glucose by meter (12/09/2022 8:19 AM CDT) GLUCOSE BY METER POCT 99 70 - 99 mg/dL 12/09/2022 8:26 AM CDT LABORATORY POC Blood, Capillary BLOOD SPECIMEN / Unknown 12/09/2022 8:19 AM CDT 12/09/2022 8:26 AM CDT Oswaldo Awad DO LAB - BEJAGDEEP POCT LABORATORY [facility] Lab [address] Lab (1st floor, no room number) [place] [address], [facility] [phone] * (ABNORMAL) CBC with platelets (12/09/2022 8:06 AM CDT) WBC Count 2.9(L) 4.0 - 11.0 10e3/uL 12/09/2022 8:23 AM CDT [facility] RBC Count 3.11(L) 3.80 - 5.20 10e6/uL 12/09/2022 8:23 AM CDT [facility] Hemoglobin 10.1(L) 11.7 - 15.7 g/dL 12/09/2022 8:23 AM CDT [facility] Hematocrit 31.5(L) 35.0 - 47.0 % 12/09/2022 8:23 AM CDT [facility] MCV 101(H) 78 - 100 fL 12/09/2022 8:23 AM CDT [facility] MCH 32.5 26.5 - 33.0 pg 12/09/2022 8:23 AM CDT [facility] MCHC 32.1 31.5 - 36.5 g/dL 12/09/2022 8:23 AM CDT [facility] RDW 16.1(H) 10.0 - 15.0 % 12/09/2022 8:23 AM CDT [facility] Platelet Count 142(L) 150 - 450 10e3/uL 12/09/2022 8:23 AM CDT [facility] Blood STRUCTURE OF RIGHT UPPER LIMB / Unknown Venipuncture / Unknown 12/09/2022 8:06 AM CDT 12/09/2022 8:16 AM CDT Shirlene Islas MD LAB - BLOOD ORDERABL ES [facility] [address] Lab (1st floor, no room number) [place] [address], [facility] [phone] * (ABNORMAL) Magnesium (12/09/2022 7:08 AM CDT) Magnesium 1.6(L) 1.7 - 2.3 mg/dL 12/09/2022 7:38 AM CDT [facility] Blood STRUCTURE OF LEFT HAND / Unknown Venipuncture / Unknown 12/09/2022 7:08 AM CDT 12/09/2022 7:17 AM CDT Shirlene Islas MD LAB - BLOOD ORDERABL ES [facility] [address] Lab (1st floor, no room number) [place] [address], [facility] [phone] * (ABNORMAL) Comprehensive metabolic panel (12/09/2022 7:08 AM CDT) Sodium 139 136 - 145 mmol/L 12/09/2022 7:51 AM CDT LABORATORY Potassium 4.3 3.4 - 5.3 mmol/L 12/09/2022 7:51 AM CDT LABORATORY Chloride 106 98 - 107 mmol/L 12/09/2022 7:51 AM CDT LABORATORY Carbon Dioxide (CO2) 23 22 - 29 mmol/L 12/09/2022 7:51 AM CDT LABORATORY Anion Gap 10 7 - 15 mmol/L 12/09/2022 7:51 AM CDT LABORATORY Urea Nitrogen 5.1(L) 8.0 - 23.0 mg/dL 12/09/2022 7:51 AM CDT LABORATORY Creatinine 0.98(H) 0.51 - 0.95 mg/dL 12/09/2022 7:51 AM CDT LABORATORY Calcium 8.4(L) 8.8 - 10.2 mg/dL 12/09/2022 7:51 AM CDT LABORATORY Glucose 118(H) 70 - 99 mg/dL 12/09/2022 7:51 AM CDT LABORATORY Alkaline Phosphatase 99 35 - 104 U/L 12/09/2022 7:51 AM CDT LABORATORY AST 22 10 - 35 U/L 12/09/2022 7:51 AM CDT LABORATORY Comment:Specimen is hemolyze d which can falsely elevate AST. Analysis of a non-hemolyzed specimen may result in a lower value. ALT 8(L) 10 - 35 U/L 12/09/2022 7:51 AM CDT [facility] Protein Total 5.0(L) 6.4 - 8.3 g/dL 12/09/2022 7:51 AM CDT [facility] Albumin 2.9(L) 3.5 - 5.2 g/dL 12/09/2022 7:51 AM CDT [facility] Bilirubin Total 0.2 <=1.2 mg/dL 12/09/2022 7:51 AM CDT [facility] GFR Estimate 65 >60 mL/min/1.7 3m2 12/09/2022 7:51 AM CDT [facility] Comment:eGFR calculated usin g 2020 CKD-EPI equation. Blood STRUCTURE OF LEFT HAND / Unknown Venipuncture / Unknown 12/09/2022 7:08 AM CDT 12/09/2022 7:17 AM CDT Raquel Rahman PA-C LAB - BLOOD ORDERABLES LABORATORY [facility] [address] Lab (1st floor, no room number) [place] [address], [facility] [phone] * (ABNORMAL) Glucose by meter (12/09/2022 1:52 AM CDT) GLUCOSE BY METER POCT 115(H) 70 - 99 mg/dL 12/09/2022 1:59 AM CDT LABORATORY POC Blood, Capillary BLOOD SPECIMEN / Unknown 12/09/2022 1:52 AM CDT 12/09/2022 1:59 AM CDT Oswaldo Awad DO LAB - BEAKER POCT LABORATORY POC [facility] Lab [address] Lab (1st floor, no room number) [place] [address], [place] [phone] * (ABNORMAL) Glucose by meter (12/08/2022 9:37 PM CDT) GLUCOSE BY METER POCT 148(H) 70 - 99 mg/dL 12/08/2022 9:44 PM CDT [facility] POC Blood, Capillary BLOOD SPECIMEN / Unknown 12/08/2022 9:37 PM CDT 12/08/2022 9:44 PM CDT Oswaldo HIGH - [facility] POCT [facility] LABORATORY [facility] Lab [address] Lab (1st floor, no room number) [place] [address], [facility] [phone] * (ABNORMAL) Glucose by meter (12/08/2022 5:37 PM CDT) GLUCOSE BY METER POCT 143(H) 70 - 99 mg/dL 12/08/2022 5:45 PM CDT [facility] POC Blood, Capillary BLOOD SPECIMEN / Unknown 12/08/2022 5:37 PM CDT 12/08/2022 5:45 PM CDT Oswaldo HIGH - [facility] PA[facility] POCT Performing Organization Address [facility]/ZIP Co de Phone Number LABORATORY [facility] Lab [address] Lab (1st floor, no room number) [place] [address], [place] [phone] * (ABNORMAL) Glucose by meter (12/08/2022 12:31 PM CDT) GLUCOSE BY METER POCT 114(H) 70 - 99 mg/dL 12/08/2022 12:38 PM CDT LABORATORY POC Blood, Capillary BLOOD SPECIMEN / Unknown 12/08/2022 12:31 PM CDT 12/08/2022 12:38 PM CDT Oswaldo HIGH - JOHN PAUL POCT LABORATORY [facility] [address] Lab (1st floor, no room number) [place] [address], [place] [phone] * (ABNORMAL) Glucose by meter (12/08/2022 8:25 AM CDT) GLUCOSE BY METER POCT 184(H) 70 - 99 mg/dL 12/08/2022 8:32 AM CDT LABORATORY POC Blood, Capillary BLOOD SPECIMEN / Unknown 12/08/2022 8:25 AM CDT 12/08/2022 8:32 AM CDT Oswaldo Awad DO LAB - BEAKER POCT Performing Organization Address City/[facility]/ZIP Co de Phone Number LABORATORY POC [facility] Lab [address] Lab (1st floor, no room number) [place] [address], [facility] [phone] * (ABNORMAL) Magnesium (12/08/2022 6:28 AM CDT) Magnesium 1.6(L) 1.7 - 2.3 mg/dL 12/08/2022 7:02 AM CDT LABORATORY Blood STRUCTURE OF RIGHT HAND / Unknown Venipuncture / Unknown 12/08/2022 6:28 AM CDT 12/08/2022 6:39 AM CDT Mike Parson MD LAB - BLOOD ORDER LENA Performing Organization Address [facility]/ZIP Co de Phone Number LABORATORY [facility] [address] Lab (1st floor, no room number) [place] [address], [facility] [phone] * (ABNORMAL) Comprehensive metabolic panel (12/08/2022 6:28 AM CDT) Sodium 139 136 - 145 mmol/L 12/08/2022 7:04 AM CDT LABORATORY Potassium 4.4 3.4 - 5.3 mmol/L 12/08/2022 7:04 AM CDT LABORATORY Chloride 107 98 - 107 mmol/L 12/08/2022 7:04 AM CDT LABORATORY Carbon Dioxide (CO2) 23 22 - 29 mmol/L 12/08/2022 7:04 AM CDT LABORATORY Anion Gap 9 7 - 15 mmol/L 12/08/2022 7:04 AM CDT LABORATORY Urea Nitrogen 3.2(L) 8.0 - 23.0 mg/dL 12/08/2022 7:04 AM CDT LABORATORY Creatinine 1.01(H) 0.51 - 0.95 mg/dL 12/08/2022 7:04 AM CDT LABORATORY Calcium 8.6(L) 8.8 - 10.2 mg/dL 12/08/2022 7:04 AM CDT LABORATORY Glucose 154(H) 70 - 99 mg/dL 12/08/2022 7:04 AM CDT LABORATORY Alkaline Phosphatase 103 35 - 104 U/L 12/08/2022 7:04 AM CDT LABORATORY AST 26 10 - 35 U/L 12/08/2022 7:04 AM CDT LABORATORY Comment:Specimen is hemolyze d which can falsely elevate AST. Analysis of a non-hemolyzed specimen may result in a lower value. ALT 11 10 - 35 U/L 12/08/2022 7:04 AM CDT LABORATORY Protein Total 4.7(L) 6.4 - 8.3 g/dL 12/08/2022 7:04 AM CDT LABORATORY Albumin 2.7(L) 3.5 - 5.2 g/dL 12/08/2022 7:04 AM CDT LABORATORY Bilirubin Total 0.2 <=1.2 mg/dL 12/08/2022 7:04 AM CDT LABORATORY GFR Estimate 63 >60 mL/min/1.7 3m2 12/08/2022 7:04 AM CDT LABORATORY Comment:eGFR calculated usin 2020 CKD-EPI equation. Blood STRUCTURE OF RIGHT HAND / Unknown Venipuncture / Unknown 12/08/2022 6:28 AM CDT 12/08/2022 6:39 AM CDT Raquel Rahman PA-C LAB - BLOOD ORDERABLES LABORATORY [facility] [address] [address] [facility] (1st floor, no room number) [place] [address], [place] [phone] * (ABNORMAL) Glucose by meter (12/08/2022 2:20 AM CDT) GLUCOSE BY METER POCT 157(H) 70 - 99 mg/dL 12/08/2022 2:27 AM CDT RH LABORATORY POC Blood, Capillary BLOOD SPECIMEN / Unknown 12/08/2022 2:20 AM CDT 12/08/2022 2:27 AM CDT Oswaldo HIGH [employer] POCT LABORATORY [facility] [email or web address] Lab (1st floor, no room number) [place] [address], [facility] [phone] * (ABNORMAL) Glucose by meter (12/07/2022 9:20 PM CDT) GLUCOSE BY METER POCT 153(H) 70 - 99 mg/dL 12/07/2022 9:27 PM CDT LABORATORY POC Blood, Capillary BLOOD SPECIMEN / Unknown 12/07/2022 9:20 PM CDT 12/07/2022 9:27 PM CDT Oswaldo HIGH [employer] JOHN PAUL POCT LABORATORY [facility] [email or web address] Lab (1st floor, no room number) [place] [address], [place] [phone] * (ABNORMAL) Glucose by meter (12/07/2022 5:41 PM CDT) GLUCOSE BY METER POCT 151(H) 70 - 99 mg/dL 12/07/2022 5:54 PM CDT LABORATORY POC Blood, Capillary BLOOD SPECIMEN / Unknown 12/07/2022 5:41 PM CDT 12/07/2022 5:54 PM CDT Oswaldo HIGH - BEAKER POCT RH LABORATORY POC [facility] [email or web address] Lab (1st floor, no room number) [place] [id number], [facility] [phone] * (ABNORMAL) Glucose by meter (12/07/2022 11:47 AM CDT) GLUCOSE BY METER POCT 144(H) 70 - 99 mg/dL 12/07/2022 11:54 AM CDT RH LABORATORY POC Blood, Capillary BLOOD SPECIMEN / Unknown 12/07/2022 11:47 AM CDT 12/07/2022 11:54 AM CDT Oswaldo HIGH - JOHN PAUL POCT Performing Organization Address City/[facility]/ZIP Co de Phone Number LABORATORY [facility] [address] Lab (1st floor, no room number) [place] [id number], [facility] [phone] * (ABNORMAL) Glucose by meter (12/07/2022 6:59 AM CDT) GLUCOSE BY METER POCT 102(H) 70 - 99 mg/dL 12/07/2022 7:06 AM CDT RH LABORATORY POC Blood, Capillary BLOOD SPECIMEN / Unknown 12/07/2022 6:59 AM CDT 12/07/2022 7:06 AM CDT Oswaldo HIGH - BEAKER POCT LABORATORY [facility] [address] Lab (1st floor, no room number) [place] [id number], [facility] [phone] * Extra Purple Top Tube (12/07/2022 6:11 AM CDT) Hold Specimen JIC 12/07/2022 7:32 AM CDT RH LABORATORY Blood STRUCTURE OF RIGHT UPPER LIMB / Unknown Venipuncture / Unknown 12/07/2022 6:11 AM CDT 12/07/2022 6:20 AM CDT Oswaldo Awad DO LAB - BLOOD ORDERAB LES [facility] [address] Lab (1st floor, no room number) [place] [address], [facility] [phone] * Magnesium (12/07/2022 6:11 AM CDT) Magnesium 1.8 1.7 - 2.3 mg/dL 12/07/2022 6:35 AM CDT LABORATORY Blood STRUCTURE OF RIGHT UPPER LIMB / Unknown Venipuncture / Unknown 12/07/2022 6:11 AM CDT 12/07/2022 6:15 AM CDT Dimitri Harrell MD LAB - BLO OD ORDERABLES [facility] [address] Lab (1st floor, no room number) [place] [address], [facility] [phone] * (ABNORMAL) Comprehensive metabolic panel (12/07/2022 6:11 AM CDT) Sodium 137 136 - 145 mmol/L 12/07/2022 6:35 AM CDT LABORATORY Potassium 4.4 3.4 - 5.3 mmol/L 12/07/2022 6:35 AM CDT RH LABORATORY Chloride 105 98 - 107 mmol/L 12/07/2022 6:35 AM CDT LABORATORY Carbon Dioxide (CO2) 24 22 - 29 mmol/L 12/07/2022 6:35 AM CDT LABORATORY Anion Gap 8 7 - 15 mmol/L 12/07/2022 6:35 AM CDT LABORATORY Urea Nitrogen 3.5(L) 8.0 - 23.0 mg/dL 12/07/2022 6:35 AM CDT LABORATORY Creatinine 1.02(H) 0.51 - 0.95 mg/dL 12/07/2022 6:35 AM CDT LABORATORY Calcium 8.5(L) 8.8 - 10.2 mg/dL 12/07/2022 6:35 AM CDT LABORATORY Glucose 105(H) 70 - 99 mg/dL 12/07/2022 6:35 AM CDT LABORATORY Alkaline Phosphatase 113(H) 35 - 104 U/L 12/07/2022 6:35 AM CDT LABORATORY AST 29 10 - 35 U/L 12/07/2022 6:35 AM CDT LABORATORY ALT 10 10 - 35 U/L 12/07/2022 6:35 AM CDT LABORATORY Protein Total 5.0(L) 6.4 - 8.3 g/dL 12/07/2022 6:35 AM CDT LABORATORY Albumin 2.9(L) 3.5 - 5.2 g/dL 12/07/2022 6:35 AM CDT LABORATORY Bilirubin Total 0.3 <=1.2 mg/dL 12/07/2022 6:35 AM CDT LABORATORY GFR Estimate 62 >60 mL/min/1.7 3m2 12/07/2022 6:35 AM CDT LABORATORY Comment:eGFR calculated usin 2020 CKD-EPI equation. Blood STRUCTURE OF RIGHT UPPER LIMB / Unknown Venipuncture / Unknown 12/07/2022 6:11 AM CDT 12/07/2022 6:15 AM CDT Raquel Rahman PA-C LAB - BLOOD ORDERABLES LABORATORY [facility] [address] Lab (1st floor, no room number) [place] [address], [facility] [phone] * (ABNORMAL) Glucose by meter (12/07/2022 2:22 AM CDT) [facility] GLUCOSE BY METER POCT 157(H) 70 - 99 mg/dL 12/07/2022 2:28 AM CDT LABORATORY POC Blood, Capillary BLOOD SPECIMEN / Unknown 12/07/2022 2:22 AM CDT 12/07/2022 2:28 AM CDT Oswaldo Awad DO LAB - JOHN PAUL POCT LABORATORY [facility] [address] Lab (1st floor, no room number) [place] [address], [place] [phone] * (ABNORMAL) Glucose by meter (12/06/2022 10:14 PM CDT) GLUCOSE BY METER POCT 153(H) 70 - 99 mg/dL 12/06/2022 10:22 PM CDT LABORATORY POC Blood, Capillary BLOOD SPECIMEN / Unknown 12/06/2022 10:14 PM CDT 12/06/2022 10:22 PM CDT Oswaldo HIGH - JOHN PAUL POCT Performing Organization Address City/[facility]/ZIP Co de Phone Number LABORATORY [facility] [address] Lab (1st floor, no room number) [place] [address], [place] [phone] * (ABNORMAL) Glucose by meter (12/06/2022 5:31 PM CDT) GLUCOSE BY METER POCT 169(H) 70 - 99 mg/dL 12/06/2022 5:38 PM CDT LABORATORY POC Blood, Capillary BLOOD SPECIMEN / Unknown 12/06/2022 5:31 PM CDT 12/06/2022 5:38 PM CDT Oswaldo Awad DO LAB - JOHN PAUL POCT LABORATORY [facility] [address] Lab (1st floor, no room number) [place] [address], [place] [phone] * (ABNORMAL) Glucose by meter (12/06/2022 2:49 PM CDT) GLUCOSE BY METER POCT 130(H) 70 - 99 mg/dL 12/06/2022 2:57 PM CDT RH LABORATORY POC Blood, Capillary BLOOD SPECIMEN / Unknown 12/06/2022 2:49 PM CDT 12/06/2022 2:57 PM CDT Oswaldo HIGH - JOHN PAUL POCT RH LABORATORY [facility] [address] Lab (1st floor, no room number) [place] [address], [place] [phone] * (ABNORMAL) Glucose by meter (12/06/2022 2:14 PM CDT) GLUCOSE BY METER POCT 129(H) 70 - 99 mg/dL 12/06/2022 2:31 PM CDT RH LABORATORY POC Blood, Capillary BLOOD SPECIMEN / Unknown 12/06/2022 2:14 PM CDT 12/06/2022 2:31 PM CDT Oswaldo HIGH - JOHN PAUL POCT Performing Organization Address City/[facility]/ZIP Co de Phone Number LABORATORY [facility] [address] Lab (1st floor, no room number) [place] [address], [place] [phone] * (ABNORMAL) Glucose by meter (12/06/2022 10:06 AM CDT) GLUCOSE BY METER POCT 106(H) 70 - 99 mg/dL 12/06/2022 10:14 AM CDT RH LABORATORY POC Blood, Capillary BLOOD SPECIMEN / Unknown 12/06/2022 10:06 AM CDT 12/06/2022 10:14 AM CDT Oswaldo HIGH - JOHN PAUL POCT LABORATORY [facility] [address] Lab (1st floor, no room number) [place] [address], [place] [phone] * (ABNORMAL) Platelet count (12/06/2022 6:20 AM CDT) [facility] Platelet Count 133(L) 150 - 450 10e3/uL 12/06/2022 6:31 AM CDT LABORATORY Blood BLOOD SPECIMEN / Unknown Venipuncture / Unknown 12/06/2022 6:20 AM CDT 12/06/2022 6:26 AM CDT Raquel Rahman PA-C LAB - BLOOD ORDERABLES LABORATORY [facility] [address] [facility] Lab (1st floor, no room number) [place] [address], [facility] [phone] * Magnesium (12/06/2022 6:20 AM CDT) [facility] Magnesium 2.0 1.7 - 2.3 mg/dL 12/06/2022 7:04 AM CDT LABORATORY Blood BLOOD SPECIMEN / Unknown Venipuncture / Unknown 12/06/2022 6:20 AM CDT 12/06/2022 6:26 AM CDT Dimitri Har[place] MD LAB - BLO OD ORDERABLES LABORATORY [facility] [address] Lab (1st floor, no room number) [place] [address], [facility] [phone] * (ABNORMAL) Comprehensive metabolic panel (12/06/2022 6:20 AM CDT) [facility] Sodium 140 136 - 145 mmol/L 12/06/2022 7:20 AM CDT LABORATORY Potassium 4.4 3.4 - 5.3 mmol/L 12/06/2022 7:20 AM CDT LABORATORY Chloride 107 98 - 107 mmol/L 12/06/2022 7:20 AM CDT LABORATORY Carbon Dioxide (CO2) 24 22 - 29 mmol/L 12/06/2022 7:20 AM CDT LABORATORY Anion Gap 9 7 - 15 mmol/L 12/06/2022 7:20 AM CDT LABORATORY Urea Nitrogen 4.5(L) 8.0 - 23.0 mg/dL 12/06/2022 7:20 AM CDT LABORATORY Creatinine 0.88 0.51 - 0.95 mg/dL 12/06/2022 7:20 AM CDT LABORATORY Calcium 8.0(L) 8.8 - 10.2 mg/dL 12/06/2022 7:20 AM CDT LABORATORY Glucose 113(H) 70 - 99 mg/dL 12/06/2022 7:20 AM CDT LABORATORY Alkaline Phosphatase 120(H) 35 - 104 U/L 12/06/2022 7:20 AM CDT LABORATORY AST 44(H) 10 - 35 U/L 12/06/2022 7:20 AM CDT LABORATORY Comment:Specimen is hemolyze d which can falsely elevate AST. Analysis of a non-hemolyzed specimen may result in a lower value. ALT 12 10 - 35 U/L 12/06/2022 7:20 AM CDT LABORATORY Protein Total 4.8(L) 6.4 - 8.3 g/dL 12/06/2022 7:20 AM CDT LABORATORY Albumin 2.7(L) 3.5 - 5.2 g/dL 12/06/2022 7:20 AM CDT LABORATORY Bilirubin Total 0.4 <=1.2 mg/dL 12/06/2022 7:20 AM CDT LABORATORY GFR Estimate 74 >60 mL/min/1.7 3m2 12/06/2022 7:20 AM CDT LABORATORY Comment:eGFR calculated us2020 CKD-EPI equation. Blood BLOOD SPECIMEN / Unknown Venipuncture / Unknown 12/06/2022 6:20 AM CDT 12/06/2022 6:26 AM CDT Raquel Rahman PA-C LAB - BLOOD ORDERABLES LABORATORY [facility] [address] Lab (1st floor, no room number) [place] [address], [facility] [phone] * (ABNORMAL) Glucose by meter (12/06/2022 2:16 AM CDT) GLUCOSE BY METER POCT 118(H) 70 - 99 mg/dL 12/06/2022 2:23 AM CDT RH LABORATORY POC Blood, Capillary BLOOD SPECIMEN / Unknown 12/06/2022 2:16 AM CDT 12/06/2022 2:23 AM CDT Oswaldo Awad DO DORCAS - JOHN PAUL POCT LABORATORY [facility] [email or web address] Lab (1st floor, no room number) [place] [address], [facility] [phone] * (ABNORMAL) Glucose by meter (12/05/2022 9:49 PM CDT) GLUCOSE BY METER POCT 111(H) 70 - 99 mg/dL 12/05/2022 9:56 PM CDT LABORATORY POC Blood, Capillary BLOOD SPECIMEN / Unknown 12/05/2022 9:49 PM CDT 12/05/2022 9:56 PM CDT Oswaldo HIGH Seth COKER POCT LABORATORY [facility] [address] (1st floor, no room number) [place] [address], [facility] [phone] * (ABNORMAL) Glucose by meter (12/05/2022 6:07 PM CDT) GLUCOSE BY METER POCT 134(H) 70 - 99 mg/dL 12/05/2022 6:14 PM CDT LABORATORY POC Blood, Capillary BLOOD SPECIMEN / Unknown 12/05/2022 6:07 PM CDT 12/05/2022 6:14 PM CDT Oswaldo HIGH - JOHN PAUL POCT RH LABORATORY [facility] [email or web address] Lab (1st floor, no room number) [place] [id number], [facility] [phone] * (ABNORMAL) Glucose by meter (12/05/2022 2:18 PM CDT) GLUCOSE BY METER POCT 143(H) 70 - 99 mg/dL 12/05/2022 2:25 PM CDT RH LABORATORY POC Blood, Capillary BLOOD SPECIMEN / Unknown 12/05/2022 2:18 PM CDT 12/05/2022 2:25 PM CDT Oswaldo Awad DO LAB - JOHN PAUL POCT Performing Organization Address [facility]/ZIP Co de Phone Number LABORATORY [facility] [address] Lab (1st floor, no room number) [place] [phone], [facility] [phone] * (ABNORMAL) Glucose by meter (12/05/2022 10:09 AM CDT) GLUCOSE BY METER POCT 142(H) 70 - 99 mg/dL 12/05/2022 10:16 AM CDT RH LABORATORY POC Blood, Capillary BLOOD SPECIMEN / Unknown 12/05/2022 10:09 AM CDT 12/05/2022 10:16 AM CDT Oswaldo HIGH - REYESAKER POCT LABORATORY [facility] [address] Lab (1st floor, no room number) [place] [id number], [facility] [phone] * Magnesium (12/05/2022 5:59 AM CDT) Magnesium 2.3 1.7 - 2.3 mg/dL 12/05/2022 6:49 AM CDT RH LABORATORY Blood STRUCTURE OF RIGHT HAND / Unknown Venipuncture / Unknown 12/05/2022 5:59 AM CDT 12/05/2022 6:10 AM CDT Dimitri Harrell MD LAB - BLO OD ORDERABLES LABORATORY [facility] [address] Lab (1st floor, no room number) [place] [address], [facility] [phone] * (ABNORMAL) Comprehensive metabolic panel (12/05/2022 5:59 AM CDT) Sodium 140 136 - 145 mmol/L 12/05/2022 6:49 AM CDT LABORATORY Potassium 4.0 3.4 - 5.3 mmol/L 12/05/2022 6:49 AM CDT LABORATORY Chloride 108(H) 98 - 107 mmol/L 12/05/2022 6:49 AM CDT LABORATORY Carbon Dioxide (CO2) 26 22 - 29 mmol/L 12/05/2022 6:49 AM CDT LABORATORY Anion Gap 6(L) 7 - 15 mmol/L 12/05/2022 6:49 AM CDT LABORATORY Urea Nitrogen 4.1(L) 8.0 - 23.0 mg/dL 12/05/2022 6:49 AM CDT LABORATORY Creatinine 0.84 0.51 - 0.95 mg/dL 12/05/2022 6:49 AM CDT LABORATORY Calcium 7.9(L) 8.8 - 10.2 mg/dL 12/05/2022 6:49 AM CDT LABORATORY Glucose 138(H) 70 - 99 mg/dL 12/05/2022 6:49 AM CDT LABORATORY Alkaline Phosphatase 136(H) 35 - 104 U/L 12/05/2022 6:49 AM CDT LABORATORY AST 38(H) 10 - 35 U/L 12/05/2022 6:49 AM CDT LABORATORY ALT 16 10 - 35 U/L 12/05/2022 6:49 AM CDT LABORATORY Protein Total 4.9(L) 6.4 - 8.3 g/dL 12/05/2022 6:49 AM CDT RH LABORATORY Albumin 2.7(L) 3.5 - 5.2 g/dL 12/05/2022 6:49 AM CDT RH LABORATORY Bilirubin Total 0.6 <=1.2 mg/dL 12/05/2022 6:49 AM CDT RH LABORATORY GFR Estimate 78 >60 mL/min/1.7 3m2 12/05/2022 6:49 AM CDT RH LABORATORY Comment:eGFR calculated usin g 2020 CKD-EPI equation. Blood STRUCTURE OF RIGHT HAND / Unknown Venipuncture / Unknown 12/05/2022 5:59 AM CDT 12/05/2022 6:10 AM CDT Raquel Rahman PA-C LAB - BLOOD ORDERABLES [facility] [address] Lab (1st floor, no room number) [place] [address], [facility] [phone] * (ABNORMAL) Glucose by meter (12/05/2022 5:42 AM CDT) GLUCOSE BY METER POCT 145(H) 70 - 99 mg/dL 12/05/2022 5:57 AM CDT LABORATORY POC Blood, Capillary BLOOD SPECIMEN / Unknown 12/05/2022 5:42 AM CDT 12/05/2022 5:57 AM CDT Oswaldo HIGH - BEAKER POCT LABORATORY [facility] [address] Lab (1st floor, no room number) [place] [address], [place] [phone] * (ABNORMAL) Glucose by meter (12/05/2022 1:41 AM CDT) GLUCOSE BY METER POCT 124(H) 70 - 99 mg/dL 12/05/2022 1:47 AM CDT LABORATORY POC Blood, Capillary BLOOD SPECIMEN / Unknown 12/05/2022 1:41 AM CDT 12/05/2022 1:47 AM CDT Oswaldo HIGH - JOHN PAUL POCT Performing Organization Address City/[facility]/ZIP Co de Phone Number LABORATORY [facility] [address] Lab (1st floor, no room number) [place] [address], [facility] [phone] * (ABNORMAL) Magnesium (12/04/2022 9:54 PM CDT) Magnesium 2.6(H) 1.7 - 2.3 mg/dL 12/04/2022 10:15 PM CDT LABORATORY Blood STRUCTURE OF RIGHT UPPER LIMB / Unknown Venipuncture / Unknown 12/04/2022 9:54 PM CDT 12/04/2022 9:57 PM CDT Dimitri Har[place] MD LAB - BLO OD ORDERABLES Performing Organization Address [facility]/ZIP Co de Phone Number [facility] [address] Lab (1st floor, no room number) [place] [address], [facility] [phone] * (ABNORMAL) Glucose by meter (12/04/2022 9:38 PM CDT) GLUCOSE BY METER POCT 132(H) 70 - 99 mg/dL 12/04/2022 9:44 PM CDT LABORATORY POC Blood, Capillary BLOOD SPECIMEN / Unknown 12/04/2022 9:38 PM CDT 12/04/2022 9:44 PM CDT Oswaldo HIGH - JOHN PAUL POCT Performing Organization Address City/[facility]/ZIP Co de Phone Number [facility] Lab [address] Lab (1st floor, no room number) [place] [address], [place] [phone] * (ABNORMAL) Glucose by meter (12/04/2022 5:59 PM CDT) GLUCOSE BY METER POCT 145(H) 70 - 99 mg/dL 12/04/2022 6:06 PM CDT LABORATORY POC Blood, Capillary BLOOD SPECIMEN / Unknown 12/04/2022 5:59 PM CDT 12/04/2022 6:06 PM CDT Oswaldo HIGH - BEAKER POCT Performing Organization Address [facility]/ZIP Co de Phone Number LABORATORY [facility] [address] Lab (1st floor, no room number) [place] [address], [facility] [phone] * (ABNORMAL) Magnesium (12/04/2022 3:27 PM CDT) Magnesium 1.5(L) 1.7 - 2.3 mg/dL 12/04/2022 3:51 PM CDT LABORATORY Blood STRUCTURE OF LEFT HAND / Unknown Venipuncture / Unknown 12/04/2022 3:27 PM CDT 12/04/2022 3:30 PM CDT Dimitri Harrell MD LAB - BLO OD ORDERABLES Performing Organization Address [facility]/ZIP Co de Phone Number [facility] [address] Lab (1st floor, no room number) [place] [address], [facility] [phone] * (ABNORMAL) Glucose by meter (12/04/2022 2:06 PM CDT) GLUCOSE BY METER POCT 155(H) 70 - 99 mg/dL 12/04/2022 2:13 PM CDT LABORATORY POC Blood, Capillary BLOOD SPECIMEN / Unknown 12/04/2022 2:06 PM CDT 12/04/2022 2:13 PM CDT Oswaldo HIGH - BEAKER POCT Performing Organization Address City/[facility]/ZIP Co de Phone Number RH LABORATORY POC [facility] [address] Lab (1st floor, no room number) [place] [address], [facility] [phone] * (ABNORMAL) Glucose by meter (12/04/2022 10:01 AM CDT) GLUCOSE BY METER POCT 170(H) 70 - 99 mg/dL 12/04/2022 10:08 AM CDT LABORATORY POC Blood, Capillary BLOOD SPECIMEN / Unknown 12/04/2022 10:01 AM CDT 12/04/2022 10:08 AM CDT Oswaldo Awad DO LAB - BEAKER POCT LABORATORY POC [facility] Lab [address] Lab (1st floor, no room number) [place] [address], [facility] [phone] * (ABNORMAL) Lipase (12/04/2022 7:03 AM CDT) Lipase 89(H) 13 - 60 U/L 12/04/2022 7:43 AM CDT LABORATORY Blood STRUCTURE OF LEFT HAND / Unknown Venipuncture / Unknown 12/04/2022 7:03 AM CDT 12/04/2022 7:23 AM CDT Raquel Rahman PA-C LAB - BLOOD ORDERABLES LABORATORY [facility] [address] Lab (1st floor, no room number) [place] [address], [facility] [phone] * (ABNORMAL) Comprehensive metabolic panel (12/04/2022 7:03 AM CDT) Sodium 139 136 - 145 mmol/L 12/04/2022 7:43 AM CDT RH LABORATORY Potassium 3.6 3.4 - 5.3 mmol/L 12/04/2022 7:43 AM CDT RH LABORATORY Chloride 103 98 - 107 mmol/L 12/04/2022 7:43 AM CDT LABORATORY Carbon Dioxide (CO2) 26 22 - 29 mmol/L 12/04/2022 7:43 AM CDT LABORATORY Anion Gap 10 7 - 15 mmol/L 12/04/2022 7:43 AM CDT LABORATORY Urea Nitrogen 5.6(L) 8.0 - 23.0 mg/dL 12/04/2022 7:43 AM CDT LABORATORY Creatinine 0.81 0.51 - 0.95 mg/dL 12/04/2022 7:43 AM CDT LABORATORY Calcium 7.6(L) 8.8 - 10.2 mg/dL 12/04/2022 7:43 AM CDT LABORATORY Glucose 168(H) 70 - 99 mg/dL 12/04/2022 7:43 AM CDT LABORATORY Alkaline Phosphatase 143(H) 35 - 104 U/L 12/04/2022 7:43 AM CDT LABORATORY AST 40(H) 10 - 35 U/L 12/04/2022 7:43 AM CDT LABORATORY ALT 17 10 - 35 U/L 12/04/2022 7:43 AM CDT LABORATORY Protein Total 5.3(L) 6.4 - 8.3 g/dL 12/04/2022 7:43 AM CDT LABORATORY Albumin 3.1(L) 3.5 - 5.2 g/dL 12/04/2022 7:43 AM CDT LABORATORY Bilirubin Total 0.9 <=1.2 mg/dL 12/04/2022 7:43 AM CDT LABORATORY GFR Estimate 82 >60 mL/min/1.7 3m2 12/04/2022 7:43 AM CDT LABORATORY Comment:eGFR calculated usin 2020 CKD-EPI equation. Blood STRUCTURE OF LEFT HAND / Unknown Venipuncture / Unknown 12/04/2022 7:03 AM CDT 12/04/2022 7:23 AM CDT Raquel Rahman PA-C LAB - BLOOD ORDERABLES LABORATORY [facility] [address] Lab (1st floor, no room number) [place] [address], [facility] [phone] * (ABNORMAL) Glucose by meter (12/04/2022 6:23 AM CDT) GLUCOSE BY METER POCT 169(H) 70 - 99 mg/dL 12/04/2022 6:30 AM CDT LABORATORY POC Blood, Capillary BLOOD SPECIMEN / Unknown 12/04/2022 6:23 AM CDT 12/04/2022 6:30 AM CDT Oswaldo Awad LAB - BEAKER POCT RH LABORATORY POC [facility] [email or web address] Lab (1st floor, no room number) [place] [address], [facility] [phone] * (ABNORMAL) Glucose by meter (12/04/2022 2:01 AM CDT) GLUCOSE BY METER POCT 187(H) 70 - 99 mg/dL 12/04/2022 2:08 AM CDT LABORATORY POC Blood, Capillary BLOOD SPECIMEN / Unknown 12/04/2022 2:01 AM CDT 12/04/2022 2:08 AM CDT Oswaldo Awad LAB - BEAKER POCT LABORATORY POC [facility] [email or web address] Lab (1st floor, no room number) [place] [address], [facility] [phone] * (ABNORMAL) UA reflex to Microscopic (12/03/2022 11:11 PM CDT) Color Urine Yellow Colorless, Straw, Light Yellow, Yellow 12/03/2022 11:37 PM CDT LABORATORY Appearance Urine Slightly Cloudy(A) Clear 12/03/2022 11:37 PM CDT LABORATORY Glucose Urine Negative Negative mg/dL 12/03/2022 11:37 PM CDT LABORATORY Bilirubin Urine Negative Negative 11:37 PM CDT LABORATORY Ketones Urine Negative Negative mg/dL 12/03/2022 11:37 PM CDT LABORATORY Specific [place] Urine 1.027 1.003 - 1.035 12/03/2022 11:37 PM CDT [facility] LABORATORY Blood Urine Negative Negative 12/03/2022 11:37 PM CDT LABORATORY pH Urine 7.5(H) 5.0 - 7.0 12/03/2022 11:37 PM CDT LABORATORY Protein Albumin Urine 10(A) Negative mg/dL 12/03/2022 11:37 PM CDT LABORATORY Urobilinogen Urine Normal Normal, 2.0 mg/dL 12/03/2022 11:37 PM CDT LABORATORY Nitrite Urine Negative Negative 12/03/2022 11:37 PM CDT LABORATORY Leukocyte Esterase Urine Negative Negative 12/03/2022 11:37 PM CDT LABORATORY Bacteria Urine Few(A) None Seen /HPF 12/03/2022 11:37 PM CDT LABORATORY RBC Urine 1 <=2 /HPF 12/03/2022 11:37 PM CDT LABORATORY WBC Urine 1 <=5 /HPF 12/03/2022 11:37 PM CDT LABORATORY Squamous Epithelials Urine 2(H) <=1 /HPF 12/03/2022 11:37 PM CDT LABORATORY Mucus Urine Present(A) None Seen /LPF 12/03/2022 11:37 PM CDT LABORATORY Urine URINE SPECIMEN OBTAINED VIA [facility] / Unknown Non-blood Collection / Unknown 12/03/2022 11:11 PM CDT 12/03/2022 11:17 PM CDT Raquel Rahman PA-C LAB - URINE ORDERABLES LABORATORY [facility] [address] Lab (1st floor, no room number) [place] [address], [facility] [phone] * (ABNORMAL) Glucose by meter (12/03/2022 9:59 PM CDT) [facility] Signature GLUCOSE BY METER POCT 219(H) 70 - 99 mg/dL 12/03/2022 10:08 PM CDT [facility] LABORATORY POC Blood, Capillary BLOOD SPECIMEN / Unknown 12/03/2022 9:59 PM CDT 12/03/2022 10:08 PM CDT Oswaldo Awad DO LAB - [facility] LABORATORY [facility] [address] Lab (1st floor, no room number) [place] [address], [place] [phone] * (ABNORMAL) Glucose by meter (12/03/2022 9:25 PM CDT) GLUCOSE BY METER POCT 208(H) 70 - 99 mg/dL 12/03/2022 9:31 PM CDT LABORATORY POC Blood, Capillary BLOOD SPECIMEN / Unknown 12/03/2022 9:25 PM CDT 12/03/2022 9:31 PM CDT Oswaldo HIGH - [facility] POCT Performing Organization Address [facility]/ZIP Co de Phone Number LABORATORY [facility] [address] Lab (1st floor, no room number) [place] [address], [place] [phone] * (ABNORMAL) Glucose by meter (12/03/2022 6:49 PM CDT) GLUCOSE BY METER POCT 204(H) 70 - 99 mg/dL 12/03/2022 6:57 PM CDT LABORATORY POC Blood, Capillary BLOOD SPECIMEN / Unknown 12/03/2022 6:49 PM CDT 12/03/2022 6:57 PM CDT Oswaldo Awad DO LAB - [facility] LABORATORY [facility] [address] Lab (1st floor, no room number) [place] [address], [place] [phone] * (ABNORMAL) Troponin T, High Sensitivity (now) (12/03/2022 12:51 PM CDT) Troponin T, High Sensitivity 19(H) <=14 ng/L 12/03/2022 1:21 PM CDT LABORATORY Comment: Either a High Sensitivity Troponin T baseline (0 hours) value = 100 ng/L, or an increase in High Sensitivity Troponin T = 7 ng/L at 2 hours compared to 0 hours (2-0 hours), suggests myocardial injury, and urgent clinical attention is required. ?? If the 2-0 hours increase is <7 ng/L, a High Sensitivity Troponin T result above gender-specific reference ranges warrants further evaluation. Recommendations for further evaluation include correlation with clinical decision-making tool (e.g., HEART), a 3rd High Sensitivity Troponin T test 2 hours after the 2nd (a 20% change from baseline would represent concern), admission for observation, close PCC/cardiology follow-up, or urgent outpatient provocative testing. Blood STRUCTURE OF LEFT UPPER LIMB / Unknown Venipuncture / Unknown 12/03/2022 12:51 PM CDT 12/03/2022 12:58 PM CDT Dyan Kaur PA-C LAB - BLOOD ORDER LENA [facility] [address]1st floor, no room number) [place] [address], [facility] [phone] * CT Chest Pulmonary Embolism w Contrast (12/03/2022 11:59 AM CDT) Anatomical Region Laterality Modality Chest, SUBRAD CT BODY, UMP CT CHEST Computed Tomography Impressions 12/03/2022 1:55 PM CDT IMPRESSION: 1. No evidence of pulmonary embolism. 2. Mild basilar pulmonary opacities, likely atelectasis. 3. Mild peripancreatic fat stranding, worrisome for acute pancreatitis. Coarse pancreatic parenchymal calcification, likely sequela of chronic pancreatitis. 4. Hepatic steatosis. SHAWN IRELAND MD Narrative 12/03/2022 1:[address] CHEST PULMONARY EMBOLISM WITH CONTRAST ??12/03/2022 11:59 AM HISTORY: ??D-dimer elevated, chest pain, shortness of breath, abdominal tenderness, nausea, vomiting and diarrhea, elevated lipase. TECHNIQUE: Scans obtained from the apices through the diaphragm with IV contrast. 75 mL Isovue-370 IV injected. Radiation dose for this scan was reduced using automated exposure control, adjustment of the mA and/or kV according to patient size, or iterative reconstruction technique. 2D and 3D MIP reconstructions were performed by the medical technologist microbiology COMPARISON: ??Chest CT on 09/06/2022. FINDINGS: Chest/mediastinum: No evidence of pulmonary embolism. No cardiomegaly or significant pericardial effusion. Moderate atherosclerotic vascular calcification of the coronary arteries. No significant mediastinal or hilar lymphadenopathy. Lungs and pleura: No pleural effusion or pneumothorax. Bibasilar pulmonary opacities, likely atelectasis. Few scattered pulmonary nodules including for example 3 mm right upper lobe nodule (series 7 image 82), 6 mm right lower lobe subpleural nodule (series 7 image 169) and 4 mm posterior left lower lobe nodule (series 7 image 199), are not significantly changed as compared to 09/06/2022 exam. Upper abdomen: Limited evaluation of the upper abdomen due to lack of coverage and timing of contrast. Diffuse hypodense appearance of the liver, likely due to underlying hepatic steatosis. Scattered areas of coarse pancreatic calcification, likely sequela of chronic pancreatitis. Mild peripancreatic fat stranding, worrisome for acute pancreatitis. Bones and soft tissue: Partially visualized postsurgical changes of the lower cervical spine. No suspicious osseous lesion. Procedure Note Shawn Ireland MD - 12/03/2022 CT CHEST PULMONARY EMBOLISM WITH CONTRAST 12/03/2022 11:59 AM HISTORY: D-dimer elevated, chest pain, shortness of breath, abdominal tenderness, nausea, vomiting and diarrhea, elevated lipase. TECHNIQUE: Scans obtained from the apices through the diaphragm with IV contrast. 75 mL Isovue-370 IV injected. Radiation dose for this scan was reduced using automated exposure control, adjustment of the mA and/or kV according to patient size, or iterative reconstruction technique. 2D and 3D MIP reconstructions were performed by the medical technologist microbiology COMPARISON: Chest CT on 09/06/2022. FINDINGS: Chest/mediastinum: No evidence of pulmonary embolism. No cardiomegaly or significant pericardial effusion. Moderate atherosclerotic vascular calcification of the coronary arteries. No significant mediastinal or hilar lymphadenopathy. Lungs and pleura: No pleural effusion or pneumothorax. Bibasilar pulmonary opacities, likely atelectasis. Few scattered pulmonary nodules including for example 3 mm right upper lobe nodule (series 7 image 82), 6 mm right lower lobe subpleural nodule (series 7 image 169) and 4 mm posterior left lower lobe nodule (series 7 image 199), are not significantly changed as compared to 09/06/2022 exam. Upper abdomen: Limited evaluation of the upper abdomen due to lack of coverage and timing of contrast. Diffuse hypodense appearance of the liver, likely due to underlying hepatic steatosis. Scattered areas of coarse pancreatic calcification, likely sequela of chronic pancreatitis. Mild peripancreatic fat stranding, worrisome for acute pancreatitis. Bones and soft tissue: Partially visualized postsurgical changes of the lower cervical spine. No suspicious osseous lesion. IMPRESSION: 1. No evidence of pulmonary embolism. 2. Mild basilar pulmonary opacities, likely atelectasis. 3. Mild peripancreatic fat stranding, worrisome for acute pancreatitis. Coarse pancreatic parenchymal calcification, likely sequela of chronic pancreatitis. 4. Hepatic steatosis. SHAWN IRELAND MD Dyan Kaur PA-C IM CT ORDERABLES * (ABNORMAL) UA with Microscopic reflex to Culture (12/03/2022 11:09 AM CDT) Color Urine Yellow Colorless, Straw, Light Yellow, Yellow 12/03/2022 11:25 AM CDT LABORATORY Appearance Urine Cloudy(A) Clear 12/04/19 23 11:25 AM CDT [facility] Glucose Urine Negative Negative mg/dL 12/03/2022 11:25 AM CDT [facility] Bilirubin Urine Negative Negative 3 11:25 AM CDT [facility] Ketones Urine Trace(A) Negative mg/dL 12/03/2022 11:25 AM CDT [facility] Specific [place] Urine 1.016 1.003 - 1.035 12/03/2022 11:25 AM CDT [facility] Blood Urine Negative Negative 12/03/2022 11:25 AM CDT [facility] pH Urine 7.0 5.0 - 7.0 12/03/2022 11:25 AM CDT [facility] Protein Albumin Urine 50(A) Negative mg/dL 12/03/2022 11:25 AM CDT [facility] Urobilinogen Urine 2.0 Normal, 2.0 mg/dL 12/03/2022 11:25 AM CDT [facility] Nitrite Urine Negative Negative 12/03/2022 11:25 AM CDT [facility] Leukocyte Esterase Urine Negative Negative 12/03/2022 11:25 AM CDT [facility] Bacteria Urine Many(A) None Seen /HPF 12/03/2022 11:25 AM CDT [facility] Mucus Urine Present(A) None Seen /LPF 12/03/2022 11:25 AM CDT [facility] RBC Urine 1 <=2 /HPF 12/03/2022 11:25 AM CDT [facility] WBC Urine 6(H) <=5 /HPF 12/03/2022 11:25 AM CDT [facility] Squamous Epithelials Urine 33(H) <=1 /HPF 12/03/2022 11:25 AM CDT [facility] Urine URINE SPECIMEN / Unknown Non-blood Collection / Unknown 12/03/2022 11:09 AM CDT 12/03/2022 11:12 AM CDT Narrative [facility] - 12/03/2022 11:25 AM CDT Urine Culture not indicated Parag Sutton MD LAB - URINE ORDER LENA LABORATORY [facility] [address] Lab (1st floor, no room number) [place] [address], [facility] [phone] * (ABNORMAL) D dimer quantitative (12/03/2022 9:56 AM CDT) [facility] Signature D-Dimer Quantitative 2.08(H) 0.00 - 0.50 ug/mL FEU 12/03/2022 10:14 AM CDT [facility] Blood STRUCTURE OF RIGHT UPPER LIMB / Unknown Venipuncture / Unknown 12/03/2022 9:56 AM CDT 12/03/2022 10:00 AM CDT Narrative LABORATORY - 12/03/2022 10:14 AM CDT This D-dimer assay is intended for use in conjunction with a clinical pretest probability assessment model to exclude pulmonary embolism (PE) and deep venous thrombosis (DVT) in outpatients suspected of PE or DVT. The cut-off value is 0.50 ug/mL FEU. Dyan Kaur PA-C LAB - BLOOD ORDER LENA Performing Organization Address City/[facility] Co de Phone Number [facility] [address] Lab (1st floor, no room number) [place] [phone], [facility] [phone] * (ABNORMAL) T4 free (12/03/2022 9:46 AM CDT) Free T4 0.74(L) 0.90 - 1.70 ng/dL 12/03/2022 12:10 PM CDT LABORATORY Blood BLOOD SPECIMEN / Unknown Venipuncture / Unknown 12/03/2022 9:46 AM CDT 12/03/2022 9:52 AM CDT Dyan Kaur PA-C LAB - BLOOD ORDER LENA Performing Organization Address [facility] Co de Phone Number [facility] [address] Lab (1st floor, no room number) [place] [phone], [facility] [phone] * (ABNORMAL) TSH with free T4 reflex (12/03/2022 9:46 AM CDT) TSH 22.03(H) 0.30 - 4.20 uIU/mL 12/03/2022 11:32 AM CDT LABORATORY Blood BLOOD SPECIMEN / Unknown Venipuncture / Unknown 12/03/2022 9:46 AM CDT 12/03/2022 9:52 AM CDT Dyan Kaur PA-C LAB - BLOOD ORDER LENA Performing Organization Address City/[facility] Co de Phone Number [facility] [address] Lab (1st floor, no room number) [place] [address], [facility] [phone] * BNP (12/03/2022 9:46 AM CDT) N terminal Pro BNP Inpatient 225 0 - 900 pg/mL 12/03/2022 10:24 AM CDT LABORATORY Comment: Reference range shown and results flagged as abnormal are suggested inpatient cut points for confirming diagnosis if CHF in an acute setting. Establishing a baseline value for each individual patient is useful for follow-up. An inpatient or emergency department NT-proPBNP <300 pg/mL effectively rules out acute CHF, with 99% negative predictive value. The outpatient non-acute reference range for ruling out CHF is: 0-125 pg/mL (age 18 to less than 75) 0-450 pg/mL (age 75 yrs and older) Blood BLOOD SPECIMEN / Unknown Venipuncture / Unknown 12/03/2022 9:46 AM CDT 12/03/2022 9:52 AM CDT Dyan Kaur PA-C LAB - BLOOD ORDER LENA Performing Organization Address City/[facility]/ZIP Co de Phone Number [facility] [address] Lab (1st floor, no room number) [place] [address], [facility] [phone] * (ABNORMAL) Lipase (12/03/2022 9:46 AM CDT) Lipase 220(H) 13 - 60 U/L 12/03/2022 10:14 AM CDT LABORATORY Blood BLOOD SPECIMEN / Unknown Venipuncture / Unknown 12/03/2022 9:46 AM CDT 12/03/2022 9:52 AM CDT Dyan Kaur PA-C LAB - BLOOD ORDER LENA [facility] [address] Lab (1st floor, no room number) [place] [address], [facility] [phone] * (ABNORMAL) Hepatic panel (12/03/2022 9:46 AM CDT) [facility] Protein Total 6.5 6.4 - 8.3 g/dL 12/03/2022 10:30 AM CDT LABORATORY Albumin 3.5 3.5 - 5.2 g/dL 12/03/2022 10:30 AM CDT LABORATORY Bilirubin Total 0.5 <=1.2 mg/dL 12/03/2022 10:30 AM CDT LABORATORY Alkaline Phosphatase 168(H) 35 - 104 U/L 12/03/2022 10:30 AM CDT LABORATORY AST 49(H) 10 - 35 U/L 12/03/2022 10:30 AM CDT LABORATORY Comment:Specimen is hemolyze d which can falsely elevate AST. Analysis of a non-hemolyzed specimen may result in a lower value. ALT 29 10 - 35 U/L 12/03/2022 10:30 AM CDT LABORATORY Bilirubin Direct <0.20 0.00 - 0.30 mg/dL 12/03/2022 10:30 AM CDT LABORATORY Blood BLOOD SPECIMEN / Unknown Venipuncture / Unknown 12/03/2022 9:46 AM CDT 12/03/2022 9:52 AM CDT Dyan Kaur PA-C LAB - BLOOD ORDER LENA LABORATORY [facility] [address] Lab (1st floor, no room number) [place] [address], [facility] [phone] * (ABNORMAL) CBC with platelets and differential (12/03/2022 9:46 AM CDT) [facility] WBC Count 3.1(L) 4.0 - 11.0 10e3/uL 12/03/2022 9:55 AM CDT LABORATORY RBC Count 4.06 3.80 - 5.20 10e6/uL 12/03/2022 9:55 AM CDT [facility] Hemoglobin 13.1 11.7 - 15.7 g/dL 12/03/2022 9:55 AM CDT [facility] Hematocrit 39.9 35.0 - 47.0 % 12/03/2022 9:55 AM CDT [facility] MCV 98 78 - 100 fL 12/03/2022 9:55 AM CDT [facility] MCH 32.3 26.5 - 33.0 pg 12/03/2022 9:55 AM CDT [facility] MCHC 32.8 31.5 - 36.5 g/dL 12/03/2022 9:55 AM CDT [facility] RDW 16.2(H) 10.0 - 15.0 % 12/03/2022 9:55 AM CDT [facility] Platelet Count 184 150 - 450 10e3/uL 12/03/2022 9:55 AM CDT [facility] % Neutrophils 54 % 12/03/2022 9:55 AM CDT [facility] % Lymphocytes 38 % 12/03/2022 9:55 AM CDT [facility] % Monocytes 7 % 12/03/2022 9:55 AM CDT [facility] % Eosinophils 0 % 12/03/2022 9:55 AM CDT [facility] % Basophils 1 % 12/03/2022 9:55 AM CDT [facility] % Immature Granulocytes 0 % 12/03/2022 9:55 AM CDT [facility] NRBCs per 100 WBC 0 <1 /100 023 9:55 AM CDT [facility] Absolute Neutrophils 1.6 1.6 - 8.3 10e3/uL 12/03/2022 9:55 AM CDT [facility] Absolute Lymphocytes 1.2 0.8 - 5.3 10e3/uL 12/03/2022 9:55 AM CDT [facility] Absolute Monocytes 0.2 0.0 - 1.3 10e3/uL 12/03/2022 9:55 AM CDT [facility] Absolute Eosinophils 0.0 0.0 - 0.7 10e3/uL 12/03/2022 9:55 AM CDT [facility] Absolute Basophils 0.0 0.0 - 0.2 10e3/uL 12/03/2022 9:55 AM CDT [facility] Absolute Immature Granulocytes 0.0 <=0.4 10e3/uL 12/03/2022 9:55 AM CDT [facility] Absolute NRBCs 0.0 10e3/uL 12/03/2022 9:55 AM CDT LABORATORY Blood BLOOD SPECIMEN / Unknown Venipuncture / Unknown 12/03/2022 9:46 AM CDT 12/03/2022 9:52 AM CDT Dyan Kaur PA-C LAB - BLOOD ORDER LENA LABORATORY [facility] [address] Lab (1st floor, no room number) [place] [address], [facility] [phone] * (ABNORMAL) Basic metabolic panel (BMP) (12/03/2022 9:46 AM CDT) Sodium 136 136 - 145 mmol/L 12/03/2022 10:29 AM CDT LABORATORY Potassium 4.8 3.4 - 5.3 mmol/L 12/03/2022 10:29 AM CDT LABORATORY Comment:Specimen slightly he molyzed, potassium may be falsely elevated. Chloride 95(L) 98 - 107 mmol/L 12/03/2022 10:29 AM CDT LABORATORY Carbon Dioxide (CO2) 23 22 - 29 mmol/L 12/03/2022 10:29 AM CDT LABORATORY Anion Gap 18(H) 7 - 15 mmol/L 12/03/2022 10:29 AM CDT LABORATORY Urea Nitrogen 10.8 8.0 - 23.0 mg/dL 12/03/2022 10:29 AM CDT LABORATORY Creatinine 0.90 0.51 - 0.95 mg/dL 12/03/2022 10:29 AM CDT LABORATORY Calcium 8.2(L) 8.8 - 10.2 mg/dL 12/03/2022 10:29 AM CDT LABORATORY Glucose 275(H) 70 - 99 mg/dL 12/03/2022 10:29 AM CDT LABORATORY GFR Estimate 72 >60 mL/min/1.7 3m2 12/03/2022 10:29 AM CDT LABORATORY Comment:eGFR calculated usin g 2020 CKD-EPI equation. Blood BLOOD SPECIMEN / Unknown Venipuncture / Unknown 12/03/2022 9:46 AM CDT 12/03/2022 9:52 AM CDT Dyan Kaur PA-C LAB - BLOOD ORDER LENA Performing Organization Address City/[facility]/ZIP Co de Phone Number [facility] [address] Lab (1st floor, no room number) [place] [address], [facility] [phone] * (ABNORMAL) Troponin T, High Sensitivity (now) (12/03/2022 9:46 AM CDT) Troponin T, High Sensitivity 21(H) <=14 ng/L 12/03/2022 10:24 AM CDT LABORATORY Comment: Either a High Sensitivity Troponin T baseline (0 hours) value = 100 ng/L, or an increase in High Sensitivity Troponin T = 7 ng/L at 2 hours compared to 0 hours (2-0 hours), suggests myocardial injury, and urgent clinical attention is required. ?? If the 2-0 hours increase is <7 ng/L, a High Sensitivity Troponin T result above gender-specific reference ranges warrants further evaluation. Recommendations for further evaluation include correlation with clinical decision-making tool (e.g., HEART), a 3rd High Sensitivity Troponin T test 2 hours after the 2nd (a 20% change from baseline would represent concern), admission for observation, close PCC/cardiology follow-up, or urgent outpatient provocative testing. Blood BLOOD SPECIMEN / Unknown Venipuncture / Unknown 12/03/2022 9:46 AM CDT 12/03/2022 9:52 AM CDT Dyan Kaur PA-C LAB - BLOOD ORDER LENA [facility] [address] Lab (1st floor, no room number) [place] [address], [facility] [phone] * EKG 12 lead (12/03/2022 9:38 AM CDT) Systolic Blood Pressure mmHg RADIOLOGY RESULTS Diastolic Blood Pressure mmHg RADIOLOGY RESULTS Ventricular Rate 76 BPM RAD IOLOGY RESULTS Atrial Rate 77 BPM RADIOLOG Y RESULTS [place] Interval 138 ms RADIOLOG Y RESULTS QRS Duration 90 ms RADIOLO GY RESULTS QT 418 ms RADIOLOGY RESULTS QTc 470 ms RADIOLOGY RESULTS P [place] 7 degrees RADIOLOGY RESULTS R AXIS 42 degrees RADIOLOGY RESULTS T [place] 95 degrees RADIOLOGY RESULTS Interpretation ECG Undetermined rhythm ST & T wave abnormality, consider anterior ischemia Abnormal ECG When compared with ECG of 16-OCT-2022 18:19, Current undetermined rhythm precludes rhythm comparison, needs review Criteria for Anteroseptal infarct are no longer Present Nonspecific T wave abnormality no longer evident in Inferior leads Confirmed by - EMERGENCY ROOM, PHYSICIAN ([id number]), scientific publications editor TALON GONZALES ([id number]) on 12/03/2022 10:28:45 AM RADIOLOGY RESULTS 12/03/2022 9:38 AM CDT 12/03/2022 10:28 AM CDT Dyan Kaur PA-C ECG ORDERABLES RADIOLOGY RESULTS documented in this encounter Visit Diagnoses Diagnosis Hypothyroidism, unspecified type- Primary Acute on chronic pancreatitis (H) Chest pain, unspecified type Elevated troponin Other abnormal blood chemistry Hyperglycemia Other abnormal glucose Hepatic steatosis Other chronic nonalcoholic liver disease Pulmonary nodules Other nonspecific abnormal finding of lung field Hypothyroidism, unspecified type Hepatic steatosis Other chronic nonalcoholic liver disease Hyperglycemia Other abnormal glucose Pulmonary nodules Other nonspecific abnormal finding of lung field Elevated troponin Other abnormal blood chemistry Acute on chronic pancreatitis (H) Chest pain, unspecified type documented in this encounter Admitting Diagnoses Diagnosis Hypothyroidism, unspecified type documented in this encounter Administered Medications Inactive Administered Medications - up to 3 most recent administrations Medication Order MAR Action Action Date Dose Rate Site 0.9% sodium chloride BOLUS Intravenous, 100 mL, ONCE, On Tue12/03/22 at 1130, For 1 dose $New Bag 12/03/2022 11:29 AM CDT 100 mLs acetaminophen (TYLENOL) Suppository 650 mg 650 mg, Rectal, EVERY 6 HOURS PRN, mild pain, other, and adjunct with moderate or severe pain or per patient request, Starting on Tue12/03/22 at 1731, Alternate with ibuprofen if ordered. Maximum acetaminophen dose from all sources = 75 mg/kg/day not to exceed 4 grams/day. acetaminophen (TYLENOL) tablet 650 mg 650 mg, Oral, EVERY 6 HOURS PRN, mild pain, other, and adjunct with moderate or severe pain or per patient request, Starting on Tue12/03/22 at 1731, Alternate with ibuprofen if ordered. Maximum acetaminophen dose from all sources = 75 mg/kg/day not to exceed 4 grams/day. amLODIPine (NORVASC) tablet 10 mg 10 mg, Oral, DAILY, First dose on Tue12/03/22 at 1800, Hold if systolic pressure <115 $Given 2022 9:10 AM CDT 10 mg $Given 12/08/2022 9:57 AM CDT 10 mg $Given 12/07/2022 7:44 AM CDT 10 mg aspirin (ASA) chewable tablet 243 mg 243 mg, Oral, ONCE, On Tue12/03/22 at 1005, For 1 dose $Given 12/03/2022 12:05 PM CDT 243 mg aspirin EC tablet 81 mg 81 mg, Oral, DAILY, First dose on Tue12/03/22 at 1800, DO NOT CRUSH. $Given 2022 9:09 AM CDT 81 mg $Given 12/10/2022 7:32 AM CDT 81 mg $Given 12/09/2022 7:54 AM CDT 81 mg bisacodyl (DULCOLAX) EC tablet 5 mg 5 mg, Oral, DAILY PRN, constipation, Starting on Tue12/08/22 at 1204, If patient has multiple oral constipation medications ordered PRN, offer in the following order per policy.?? Move to the next available step if the earlier step is ineffective. Step 1 - senna-s; Step 2 - bisacodyl; Step 3 - milk of magnesia; Step 4 - polyethylene glycol; Step 5 - magnesium citrate DO NOT CRUSH. Hold for loose stools unless being administered as part of a bowel prep regimen prior to a procedure. $Given 12/10/2022 7:3 2 AM CDT 5 mg brexpiprazole (REXULTI) tablet 2 mg 2 mg, Oral, DAILY, First dose on Tue12/03/22 at 1800 $Given 2022 9:10 AM CDT 2 mg $Given 12/10/2022 7:30 AM CDT 2 mg $Given 12/09/2022 7:53 AM CDT 2 mg buprenorphine HCl-naloxone HCl (SUBOXONE) 2-0.5 MG per film 1 Film 1 Film, Sublingual, 3 TIMES DAILY, First dose on Tue12/03/22 at 1999, Give SUBLINGUAL. Place under the tongue near the base on right or left side and leave until completely dissolved. Cutting film not recommended. Patient should not swallow, chew, or move film. Patient should not eat/drink until film is completely dissolved. $Given 2022 2:20 PM CDT 1 Film $Given 2022 9:09 AM CDT 1 Film $Given 12/10/2022 8:23 PM CDT 1 Film cholestyramine (QUESTRAN) Packet 1 g 1 g, Oral, 2 TIMES DAILY, First dose on Tue12/03/22 at 1999, Other drugs should be taken 1 hr before or 4 hr after colestipol. Swallow TAB whole; DO NOT CRUSH, CUT, or CHEW. $Given 2022 9:17 AM CDT 1 g $Given 12/10/2022 9:54 PM CDT 1 g $Given 12/10/2022 7:33 AM CDT 1 g clonazePAM (klonoPIN) tablet 1 mg 1 mg, Oral, 2 TIMES DAILY, First dose on Tue12/03/22 at 1999 $Given 2022 9:09 AM CDT 1 mg $Given 12/10/2022 8:22 PM CDT 1 mg $Given 12/10/2022 7:31 AM CDT [address] scan flush Intravenous, 100 mL, ONCE, On Tue12/10/22 at 1200, For 1 dose, This entry is for use by Radiology to intermittently used as a flush in patients receiving a CT scan. $Given 12/10/2022 11:31 AM CDT 27 mLs desvenlafaxine (PRISTIQ) 24 hr tablet 100 mg 100 mg, Oral, DAILY, First dose on Tue12/03/22 at 1800, DO NOT CRUSH $Given 2022 9:10 AM CDT 100 mg $Given 12/10/2022 7:35 AM CDT 100 mg $Given 12/09/2022 7:57 AM CDT 100 mg desvenlafaxine (PRISTIQ) 24 hr tablet 50 mg 50 mg, Oral, DAILY, First dose on Tue12/03/22 at 1800, DO NOT CRUSH. $Given 2022 9:12 AM CDT 50 mg $Given 12/10/2022 7:32 AM CDT 50 mg $Given 12/09/2022 7:57 AM CDT 50 mg dextrose 50 % injection 25-50 mL 25-50 mL, Intravenous, EVERY 15 MIN PRN, low blood sugar, Administer over 1-5 Minutes, Starting on Tue12/03/22 at 1731, Use if have IV access, BG less than 70 mg/dL and meet dose criteria below: Dose if conscious and alert (or disorientated) and NPO = 25 mL Dose if unconscious / not alert = 50 mL Give first dose for initial blood glucose less than 70 mg/dL. If blood glucose at 15 minute recheck is less than or equal to 100 mg/dL continue to administer carbohydrate treatment every 15 minutes, as needed, based on blood glucose and assessment parameters until blood glucose level is above 100 mg/dL. Vesicant. enoxaparin ANTICOAGULANT (LOVENOX) injection 40 mg 40 mg, Subcutaneous, EVERY 24 HOURS, First dose on Tue12/03/22 at 1800, HOLD if platelet count falls below 50% of baseline or less than 100,000/??L and notify provider. $Given 12/10/2022 5:35 PM CDT 40 mg $Given 12/09/2022 5:09 PM CDT 40 mg Le ft Lower Abdomen $Given 12/08/2022 6:08 PM CDT 40 mg fenofibrate (LOFIBRA) tablet 54 mg 54 mg, Oral, DAILY, First dose on Tue12/04/22 at 0800 $Given 2022 9:10 AM CDT 54 mg $Given 12/10/2022 7:30 AM CDT 54 mg $Given 12/09/2022 7:53 AM CDT 54 mg ferrous sulfate (FEROSUL) tablet 325 mg 325 mg, Oral, DAILY WITH BREAKFAST, First dose on Tue12/04/22 at 0800, Absorbed best on an empty stomach. If stomach upset occurs, can take with meals. $Given 2022 9:10 AM CDT 325 mg $Given 12/10/2022 7:32 AM CDT 325 mg $Given 12/09/2022 7:54 AM CDT 325 mg glimepiride (AMARYL) tablet 2 mg 2 mg, Oral, DAILY WITH BREAKFAST, First dose on Zenaida 12/09/22 at 0800, Take before or with meals. $Given 2022 9:09 AM CDT 2 mg $Given 12/10/2022 7:31 AM CDT 2 mg $Given 12/09/2022 7:55 AM CDT 2 mg glucagon injection 1 mg 1 mg, Subcutaneous, EVERY 15 MIN PRN, low blood sugar, May repeat x 1 only, Starting on Tue12/03/22 at 1731, May give SQ or IM. ONLY use glucagon IF patient has NO IV access AND is UNABLE to swallow AND blood glucose is LESS than or EQUAL to 50 mg/dL. glucose gel 15-30 g 15-30 g, Oral, EVERY 15 MIN PRN, low blood sugar, Starting on Tue12/03/22 at 1731, Give first dose for initial blood glucose less than 70 mg/dL per the dosing instructions below. If blood glucose at 15 minute rechecks is still less than or equal to 100 mg/dL, continue to administer doses per blood glucose parameters every 15 minutes, as needed, until blood glucose level is above 100 mg/dL. Dosing Instructions: ~If patient is conscious and able to swallow and NO enteral tube For initial BG 51-69mg/dL OR 15 minute recheck BG 51- 100 mg/dL - give 15 g For BG less than or equal to 50 mg/dL - give 30 g ~ If Enteral tube For initial BG 51-69mg/dL OR 15 minute recheck BG 51- 100 mg/dL - give apple juice 120 mL (4 oz or 15 g of CHO) via enteral tube For BG less than or equal to 50 mg/dL - Give apple juice 240 mL (8 oz or 30 g of CHO) via enteral tube ~Oral gel is preferable for conscious and able to swallow patient. ~IF gel unavailable or patient refuses may provide apple juice per Enteral tube dosing instructions. Document juice on I and O flowsheet. HYDROmorphone (DILAUDID) tablet 4 mg 4 mg, Oral, EVERY 4 HOURS PRN, moderate pain, IF pain not managed with non-pharmacological and non-opioid interventions, Starting on 12/04/22 at 0833, May use concomitant with non-opioid analgesics. $Given 12/08/2022 6:38 AM CDT 4 mg $Given 12/08/2022 2:11 AM CDT 4 mg $Given 12/07/2022 7:50 PM CDT 4 mg HYDROmorphone (DILAUDID) tablet 4 mg 4 mg, Oral, EVERY 8 HOURS PRN, moderate pain, IF pain not managed with non-pharmacological and non-opioid interventions, Starting on Tue12/08/22 at 0830, May use concomitant with non-opioid analgesics. $Given 2022 5:04 PM CDT 4 mg $Given 2022 9:09 AM CDT 4 mg $Given 2022 12:12 AM CDT 4 mg HYDROmorphone (PF) (DILAUDID) injection 0.5 mg 0.5 mg, Intravenous, EVERY 1 HOUR PRN, severe pain, Starting on Tue12/03/22 at 1307, For 2 doses $Given 12/03/2022 3:45 PM CDT 0.5 mg $Given 12/03/2022 2:08 PM CDT 0.5 mg HYDROmorphone (PF) (DILAUDID) injection 0.5 mg 0.5 mg, Intravenous, EVERY 1 HOUR PRN, moderate pain, IF patient cannot take oral opioid OR IF pain not managed with non-pharmacological, non-opioid, or oral opioid interventions if ordered, Starting on Tue12/03/22 at 1731, May use concomitant with non-opioid analgesics. $Given 12/04/2022 6:26 AM CDT 0.5 mg $Given 12/04/2022 3:53 AM CDT 0.5 mg $Given 12/04/2022 2:22 AM CDT 0.5 mg HYDROmorphone (PF) (DILAUDID) injection 1 mg 1 mg, Intravenous, EVERY 2 HOURS PRN, moderate pain, IF patient cannot take oral opioid OR IF pain not managed with non-pharmacological, non-opioid, or oral opioid interventions if ordered, Starting on Tue12/04/22 at 1000, May use concomitant with non-opioid analgesics. $Given 12/06/2022 8:21 AM CDT 1 mg $Given 12/06/2022 5:08 AM CDT 1 mg $Given 12/06/2022 1:12 AM CDT 1 mg hydrOXYzine (ATARAX) tablet 25 mg 25 mg, Oral, 4 TIMES DAILY, First dose on Tue12/03/22 at 2000 $Given 2022 9:09 AM CDT 25 mg $Given 12/10/2022 11:05 PM CDT 25 mg $Given 12/10/2022 5:34 PM CDT 25 mg insulin aspart (NovoLOG) injection (RAPID ACTING) 1-6 Units, Subcutaneous, EVERY 4 HOURS, First dose on Tue12/03/22 at 1800, Correction Scale - MEDIUM INSULIN RESISTANCE DOSING Do Not give Correction Insulin if BG less than 140. For BG 140 - 189 give 1 unit. For BG 190 - 239 give 2 units. For BG 240 - 289 give 3 units. For BG 290 - 339 give 4 units. For BG 340 - 399 give 5 units. For BG greater than or equal to 400 give 6 units. Check blood glucose Q4H and administer based on blood glucose. Notify provider if glucose greater than or equal to 350 mg/dL after administration of correction dose. If given at mealtime, administer within 30 minutes of start of meal. $Given 12/05/2022 2:57 PM CDT 1 Units $Given 12/05/2022 9:47 AM CDT 1 Units $Given 12/04/2022 6:37 PM CDT 1 Units Ri ght Arm insulin aspart (NovoLOG) injection (RAPID ACTING) 1-7 Units, Subcutaneous, 3 TIMES DAILY BEFORE MEALS, First dose on Tue12/06/22 at 1700, Correction Scale - MEDIUM INSULIN RESISTANCE DOSING Do Not give Correction Insulin if Pre-Meal BG less than 140. For Pre-Meal BG 140 - 189 give 1 unit. For Pre-Meal BG 190 - 239 give 2 units. For Pre-Meal BG 240 - 289 give 3 units. For Pre-Meal BG 290 - 339 give 4 units. For Pre-Meal BG 340- 399 give 5 units. For Pre-Meal BG 400-449 give 6 units For Pre-Meal BG greater than or equal to 450 give 7 units. To be given with prandial insulin, and based on pre-meal blood glucose. Notify provider if glucose greater than or equal to 350 mg/dL after administration of correction dose. If given at mealtime, administer within 30 minutes of start of meal. $Given 2022 2:21 PM CDT 2 Units $Given 12/10/2022 6:21 PM CDT 1 Units $Given 12/10/2022 7:40 AM CDT 2 Units insulin aspart (NovoLOG) injection (RAPID ACTING) 1-5 Units, Subcutaneous, AT BEDTIME, First dose on Tue12/06/22 at 2200, MEDIUM INSULIN RESISTANCE DOSING Do Not give Bedtime Correction Insulin if BG less than 200. For BG 200 - 249 give 1 units. For BG 250 - 299 give 2 units. For BG 300 - 349 give 3 units. For BG 350 -399 give 4 units. For BG greater than or equal to 400 give 5 units. Notify provider if glucose greater than or equal to 350 mg/dL after administration of correction dose. If given at mealtime, administer within 30 minutes of start of meal. insulin glargine (LANTUS PEN) injection 5 Units 5 Units, Subcutaneous, EVERY MORNING, First dose on Tue12/04/22 at 0800 $Given 12/08/2022 8:45 AM CDT 5 Units $Given 12/07/2022 7:57 AM CDT 5 Units $Given 12/06/2022 8:32 AM CDT 5 Units iopamidol (ISOVUE-370) solution 500 mL 500 mL, Intravenous, ONCE, On Tue12/03/22 at 1130, For 1 dose $Given 12/03/2022 11:29 AM CDT 75 mLs iopamidol (ISOVUE-370) solution 500 mL 500 mL, Intravenous, ONCE, On Tue12/10/22 at 1200, For 1 dose $Given 12/10/2022 11:31 AM CDT 100 mLs ketorolac (TORADOL) injection 15 mg 15 mg, Intravenous, EVERY 6 HOURS PRN, inflammatory pain, Starting on Tue12/04/22 at 1043, For 5 doses, Can cause pain on injection. If ordered intravenously (IV) : administer through a running maintenance fluid over 1 minute followed by a flush. If patient complains of pain on injection, may dilute 15-30 mg in 5 mL and push over 1 to 2 minutes. $Given 2022 4:52 AM CDT 15 mg ketorolac (TORADOL) injection 30 mg 30 mg, Intravenous, 2 TIMES DAILY, First dose on Tue12/06/22 at 1000, For 3 doses, Can cause pain on injection. If ordered intravenously (IV) : administer through a running maintenance fluid over 1 minute followed by a flush. If patient complains of pain on injection, may dilute 15-30 mg in 5 mL and push over 1 to 2 minutes. $Given 12/07/2022 7:43 AM CDT 30 mg $Given 12/06/2022 8:05 PM CDT 30 mg $Given 12/06/2022 10:12 AM CDT 30 mg lactated ringers BOLUS 500 mL Intravenous, 500 mL, ONCE, at 500 mL/hr, Administer over 1 Hours, On Tue12/03/22 at 1030, For 1 dose $New Bag 12/03/2022 2:40 PM CDT 500 mLs 500 mL/hr lactated ringers BOLUS 500 mL Intravenous, 500 mL, ONCE, On Tue12/03/22 at 1515, For 1 dose $New Bag 12/03/2022 3:46 PM CDT 500 mLs 500 mL/hr lactated ringers infusion at 75 mL/hr, Intravenous, CONTINUOUS, OK to TKO once PO intake is well tolerated., Starting on Tue12/03/22 at 1800, Until Tue12/07/22 at 1048 Rate/Dose Change 12/06/2022 11:51 AM CDT 75 mL/hr $New Bag 12/06/2022 5:08 AM CDT 125 mL/hr $New Bag 12/05/2022 7:56 PM CDT 125 mL/hr levothyroxine (SYNTHROID/LEVOTHROID) tablet 350 mcg 350 mcg, Oral, DAILY, First dose on Tue12/03/22 at 1800, Separate oral administration of iron- or calcium-containing products and levothyroxine by at least 4 hours. $Given 2022 9:09 AM CDT 350 mcg $Given 12/10/2022 7:31 AM CDT 350 mcg $Given 12/09/2022 7:53 AM CDT 350 mcg LORazepam (ATIVAN) injection 0.5 mg 0.5 mg, Intravenous, EVERY 4 HOURS PRN, anxiety, nausea, Starting on Tue12/03/22 at 2101, This drug may cause significant respiratory depression. Monitor respiratory status and vital signs carefully for 1 hour after each dose. $Given 2022 2:52 PM CDT 0.5 mg $Given 2022 10:48 AM CDT 0.5 mg $Given 2022 6:35 AM CDT 0.5 mg LORazepam (ATIVAN) injection 1 mg 1 mg, Intravenous, ONCE, On Tue12/03/22 at 1015, For 1 dose, This drug may cause significant respiratory depression. Monitor respiratory status and vital signs carefully for 1 hour after each dose. $Given 12/03/2022 10:42 AM CDT 1 mg magnesium hydroxide (MILK OF MAGNESIA) suspension 15-30 mL 15-30 mL, Oral, DAILY PRN, constipation, Starting on Tue12/08/22 at 1203, If patient has multiple oral constipation medications ordered PRN, offer in the following order per policy.?? Move to the next available step if the earlier step is ineffective. Step 1 - senna-s; Step 2 - bisacodyl; Step 3 - milk of magnesia; Step 4 - polyethylene glycol; Step 5 - magnesium citrate Hold for loose stools. magnesium hydroxide (MILK OF MAGNESIA) suspension 30 mL 30 mL, Oral, ONCE, On Zenaida 12/09/22 at 1100, For 1 dose, Hold for loose stools. $Given 12/09/2022 11:11 AM CDT 30 mLs magnesium sulfate 4 g in 100 mL sterile water intermittent infusion 4 g, Intravenous, Administer over 120 Minutes, at 50 mL/hr, ONCE, On Tue12/04/22 at 1600, For 1 dose, Magnesium level 1.1-1.5 mg/dL. Administer 4 gm magnesium IV x 1 dose and recheck magnesium level 2-4 hours AFTER the last dose is infused. Ordered from the Magnesium replacement order set. $New Bag 12/04/2022 5:31 PM CDT 4 g 50 mL/hr methocarbamol (ROBAXIN) tablet 1,000 mg 1,000 mg, Oral, 4 TIMES DAILY, First dose on Tue12/03/22 at 2000 $Given 2022 9:09 AM CDT 1,000 mg $Given 12/10/2022 11:06 PM CDT 1,000 mg $Given 12/10/2022 5:34 PM CDT 1,000 mg metoprolol tartrate (LOPRESSOR) tablet 25 mg 25 mg, Oral, 2 TIMES DAILY, First dose on Tue12/03/22 at 2000, Hold if systolic blood pressure <110 $Given 2022 9:10 AM CDT 25 mg $Given 12/10/2022 8:22 PM CDT 25 mg $Given 12/10/2022 7:32 AM CDT 25 mg naloxone (NARCAN) injection 0.2 mg 0.2 mg, Intravenous, EVERY 2 MIN PRN, opioid reversal, Starting on Tue12/03/22 at 1744, Administer intravenous route when available and notify provider when administered. For unintended sedation or respiratory depression if all of the below criteria are met: ~ respiratory rate LESS than or EQUAL to 8. ~SaO2 less than 92% and or/end-tidal CO2 is greater than 50. ~ the patient is receiving an opioid, has unintended sedations assessed as RASS (-3), and is currently not on mechanical ventilation. RASS scale moderate (-3) is movement or eye opening to voice but no eye contact. Patient Monitoring Once the patient has demonstrated a response to the naloxone, continue to monitor respiratory rate, depth, oxygen saturation and end-tidal CO2 (if available) every 15 minutes x 2, then every 30 minutes x 2, then every 1 hour x 1 after each naloxone dose. Consider transfer to ICU if patient respiratory parameters have not improved after 4 naloxone doses. naloxone (NARCAN) injection 0.2 mg 0.2 mg, Intramuscular, EVERY 2 MIN PRN, opioid reversal, Starting on Tue12/03/22 at 1744, Administer intramuscular if an intravenous route is not available and notify provider when administered. For unintended sedation or respiratory depression if all of the below criteria are met: ~ respiratory rate LESS than or EQUAL to 8. ~SaO2 less than 92% and or/end-tidal CO2 is greater than 50. ~ the patient is receiving an opioid, has unintended sedations assessed as RASS (-3), and is currently not on mechanical ventilation. RASS scale moderate (-3) is movement or eye opening to voice but no eye contact. Patient Monitoring Once the patient has demonstrated a response to the naloxone, continue to monitor respiratory rate, depth, oxygen saturation and end-tidal CO2 (if available) every 15 minutes x 2, then every 30 minutes x 2, then every 1 hour x 1 after each naloxone dose. Consider transfer to ICU if patient respiratory parameters have not improved after 4 naloxone doses. naloxone (NARCAN) injection 0.4 mg 0.4 mg, Intravenous, EVERY 2 MIN PRN, opioid reversal, Starting on Tue12/03/22 at 1744, Administer intravenous route when available and notify provider when administered. For unintended sedation or respiratory depression if all of the below criteria are met: ~ respiratory rate LESS than or EQUAL to 8. ~ SaO2 less than 92% and or/end-tidal CO2 is greater than 50. ~ the patient is receiving an opioid, has unintended sedation assessed as RASS (-4) or (-5) and patient is currently not on mechanical ventilation. RASS scale (-4) is deep sedation with no response to voice but movement or eye opening to physical stimulation. RASS scale (-5) is unarousable. Patient Monitoring Once the patient has demonstrated a response to the naloxone, continue to monitor respiratory rate, depth, oxygen saturation and end-tidal CO2 (if available) every 15 minutes x 2, then every 30 minutes x 2, then every 1 hour x 1 after each naloxone dose. Consider transfer to ICU if patient respiratory parameters have not improved after 4 naloxone doses. naloxone (NARCAN) injection 0.4 mg 0.4 mg, Intramuscular, EVERY 2 MIN PRN, opioid reversal, Starting on Tue12/03/22 at 1744, Administer intramuscular if an intravenous route is not available and notify provider when administered. For unintended sedation or respiratory depression if all of the below criteria are met: ~ respiratory rate LESS than or EQUAL to 8. ~ SaO2 less than 92% and or/end-tidal CO2 is greater than 50. ~ the patient is receiving an opioid, has unintended sedation assessed as RASS (-4) or (-5) and patient is currently not on mechanical ventilation. RASS scale (-4) is deep sedation with no response to voice but movement or eye opening to physical stimulation. RASS scale (-5) is unarousable. Patient Monitoring Once the patient has demonstrated a response to the naloxone, continue to monitor respiratory rate, depth, oxygen saturation and end-tidal CO2 (if available) every 15 minutes x 2, then every 30 minutes x 2, then every 1 hour x 1 after each naloxone dose. Consider transfer to ICU if patient respiratory parameters have not improved after 4 naloxone doses. nicotine (NICODERM CQ) 21 MG/24HR 24 hr patch 1 patch 1 patch, Transdermal, DAILY, Administer over 24 Hours, First dose on Tue12/03/22 at 1800, Reminder: Remove previous patch before applying new patch. $Patch/Med Applied 2022 9:00 AM CDT 1 patch Right Shoulder $Patch/Med Applied 12/10/2022 7:42 AM CDT 1 patch Left Arm $Patch/Med Applied 12/09/2022 8:42 AM CDT 1 patch Right Arm ondansetron (ZOFRAN ODT) ODT tab 4 mg 4 mg, Oral, EVERY 6 HOURS PRN, nausea, vomiting, Starting on Tue12/03/22 at 1731, This is Step 1 of nausea and vomiting management. If nausea not resolved in 15 minutes, go to Step 2 prochlorperazine (COMPAZINE). With dry hands, peel back foil backing and gently remove tablet. Do not push oral disintegrating tablet through foil backing. Administer immediately on tongue and oral disintegrating tablet dissolves in seconds, then swallow with saliva. Liquid not required. ondansetron (ZOFRAN) injection 4 mg 4 mg, Intravenous, ONCE, Administer over 2-5 Minutes, On Tue12/03/22 at 1005, For 1 dose, Irritant. $Given 12/03/2022 10:12 AM CDT 4 mg ondansetron (ZOFRAN) injection 4 mg 4 mg, Intravenous, ONCE, Administer over 2-5 Minutes, On Tue12/03/22 at 1555, For 1 dose, Irritant. $Given 12/03/2022 3:54 PM CDT 4 mg ondansetron (ZOFRAN) injection 4 mg 4 mg, Intravenous, EVERY 6 HOURS PRN, nausea, vomiting, Administer over 2-5 Minutes, Starting on Tue12/03/22 at 1731, Give IF patient unable to tolerate oral medication. This is Step 1 of nausea and vomiting management. If nausea not resolved in 15 minutes, go to Step 2 prochlorperazine (COMPAZINE). Irritant. $Given 12/06/2022 1:34 AM CDT 4 mg $Given 12/05/2022 5:53 AM CDT 4 mg $Given 12/04/2022 10:08 AM CDT 4 mg pantoprazole (PROTONIX) EC tablet 40 mg 40 mg, Oral, EVERY MORNING BEFORE BREAKFAST, First dose on Tue12/08/22 at 0730, DO NOT CRUSH. $Given 2022 9:10 AM CDT 40 mg $Given 12/10/2022 7:07 AM CDT 40 mg $Given 12/09/2022 6:36 AM CDT 40 mg pantoprazole (PROTONIX) IV push injection 40 mg 40 mg, Intravenous, DAILY WITH BREAKFAST, First dose on Tue12/04/22 at 0800, Irritant. $Given 12/07/2022 7:42 AM CDT 40 mg $Given 12/06/2022 8:12 AM CDT 40 mg $Given 12/05/2022 9:33 AM CDT 40 mg polyethylene glycol (MIRALAX) Packet 85 g 85 g, Oral, ONCE, On Tue12/10/22 at 1300, For 1 dose, 1 Packet = 17 grams. Mix each gram with at least 1/2 ounce (15 mL) of water - 8 ounces for 17 g dose, 4 ounces for 8.5 g dose, 2 ounces for 4 g dose. Follow with the same volume of water. Hold for loose stools unless being administered as part of a bowel prep regimen or bowel clean out. $Given 12/10/2022 1:43 PM CDT 34 g potassium chloride ER (K-TAB/KLOR-CON) CR tablet 10 mEq 10 mEq, Oral, DAILY, First dose on Tue12/03/22 at 1800, DO NOT CRUSH. $Given 2022 9:09 AM CDT 10 mEq $Given 12/10/2022 7:32 AM CDT 10 mEq $Given 12/09/2022 7:55 AM CDT 10 mEq risperiDONE (risperDAL M-TABS) ODT tab 0.5 mg 0.5 mg, Sublingual, EVERY MORNING, First dose on Tue12/04/22 at 0800 $Given 2022 9:09 AM CDT 0.5 mg $Given 12/10/2022 7:30 AM CDT 0.5 mg $Given 12/09/2022 7:55 AM CDT 0.5 mg rosuvastatin (CRESTOR) tablet 40 mg 40 mg, Oral, DAILY, First dose on Tue12/04/22 at 0800 $Given 2022 9:09 AM CDT 40 mg $Given 12/10/2022 7:30 AM CDT 40 mg $Given 12/09/2022 7:55 AM CDT 40 mg senna-docusate (SENOKOT-S/PERICOLACE) 8.6-50 MG per tablet 1 tablet 1 tablet, Oral, 2 TIMES DAILY PRN, constipation, Starting on Tue12/03/22 at 1731, If no bowel movement in 24 hours, increase to 2 tablets by mouth. IF more than 1 constipation PRN medication is ordered, administer step-perez as indicated, moving to the next step ONLY if prior step ineffective. Step 1: senna-docusate (SENOKOT-S; PERICOLACE) OR bisacodyl (DULCOLAX) EC tablet Step 2: magnesium hydroxide (MILK OF MAGNESIA) OR polyethylene glycol (MIRALAX/GLYCOLAX) Step 3: bisacodyl (DULCOLAX) suppository Step 4: sodium phosphate (FLEET ENEMA) Hold for loose stools. senna-docusate (SENOKOT-S/PERICOLACE) 8.6-50 MG per tablet 2 tablet 2 tablet, Oral, 2 TIMES DAILY PRN, constipation, Starting on Tue12/03/22 at 1731, IF more than 1 constipation PRN medication is ordered, administer step-perez as indicated, moving to the next step ONLY if prior step ineffective. Step 1: senna-docusate (SENOKOT-S; PERICOLACE) OR bisacodyl (DULCOLAX) EC tablet Step 2: magnesium hydroxide (MILK OF MAGNESIA) OR polyethylene glycol (MIRALAX/GLYCOLAX) Step 3: bisacodyl (DULCOLAX) suppository Step 4: sodium phosphate (FLEET ENEMA) Hold for loose stools. simethicone (MYLICON) chewable tablet 80 mg 80 mg, Oral, EVERY 6 HOURS PRN, flatulence, cramping, Starting on Tue12/03/22 at 1731 $Given 12/08/2022 6:38 AM CDT 80 mg $Given 12/06/2022 8:05 PM CDT 80 mg $Given 12/06/2022 12:21 PM CDT 80 mg sodium chloride (PF) 0.9% PF flush 3 mL 3 mL, Intracatheter, EVERY 8 HOURS, First dose on Tue12/03/22 at 1800, to lock peripheral IV dormant line $Given 2022 9:17 AM CDT 3 mLs $Given 2022 2:32 AM CDT 3 mLs $Given 12/10/2022 5:38 PM CDT 3 mLs sodium chloride (PF) 0.9% PF flush 3 mL 3 mL, Intracatheter, EVERY 1 MIN PRN, line flush, other, to ensure patency or to lock dormant line, Starting on Tue12/03/22 at 1731 $Given 12/09/2022 12:00 PM CDT 3 mLs $Given 12/05/2022 2:58 PM CDT 3 mLs $Given 12/05/2022 1:24 PM CDT 3 mLs documented in this encounter Active and Recently Administered Medications Times are shown in CDT. Scheduled Medication Order 12/09/2022 12/10/2022 2022 amLODIPine (NORVASC) tablet 10 mg 10 mg, Oral, DAILY, First dose on Tue12/03/22 at 1800, Hold if systolic pressure <115 0806 (Not Given - Provider: Hamida Calle RN - Reason: Order parameters not met) 0732 (Not Given - Provider: Radha Healy RN - Reason: Order parameters not met) 0910 ($Given - Provider: Dyan Washburn RN) aspirin EC tablet 81 mg 81 mg, Oral, DAILY, First dose on Tue12/03/22 at 1800, DO NOT CRUSH. 0754 ($Given - Provider: Hamida Calle RN) 0732 ($Given - Provider: Radha Healy RN) 0909 ($Given - Provider: Dyan Washburn, ZITA) brexpiprazole (REXULTI) tablet 2 mg 2 mg, Oral, DAILY, First dose on Tue12/03/22 at 1800 0753 ($Given - Provider: Hamida Calle RN) 0730 ($Given - Provider: Radha Healy RN) 0910 ($Given - Provider: Dyan Washburn RN) buprenorphine HCl-naloxone HCl (SUBOXONE) 2-0.5 MG per film 1 Film 1 Film, Sublingual, 3 TIMES DAILY, First dose on Tue12/03/22 at 2000, Give SUBLINGUAL. Place under the tongue near the base on right or left side and leave until completely dissolved. Cutting film not recommended. Patient should not swallow, chew, or move film. Patient should not eat/drink until film is completely dissolved. 0757 ($Given - Provider: Hamida Calle RN)1427 ($Given - Provider: Hamida Calle RN)1954 ($Given - Provider: Lillian Michele RN) 0731 ($Given - Provider: Radha Healy, ZITA)1345 ($Given - Provider: Radha Healy, ZITA)2022 ($Given - Provider: Paloma Marquez, ZITA) 0909 ($Given - Provider: Dyan Washburn, ZITA)1420 ($Given - Provider: Dyan Washburn, ZITA) cholestyramine (QUESTRAN) Packet 1 g 1 g, Oral, 2 TIMES DAILY, First dose on Tue12/03/22 at 1999, Other drugs should be taken 1 hr before or 4 hr after colestipol. Swallow TAB whole; DO NOT CRUSH, CUT, or CHEW. 0758 ($Given - Provider: Hamida Calle RN)1954 ($Given - Provider: Lillian Michele RN) 0733 ($Given - Provider: Radha Healy, ZITA)2154 ($Given - Provider: Paloma Marquez, ZITA) 0917 ($Given - Provider: Dyan Washburn, ZITA) clonazePAM (klonoPIN) tablet 1 mg 1 mg, Oral, 2 TIMES DAILY, First dose on Tue12/03/22 at 1999 0754 ($Given - Provider: Hamida Calle RN)195 ($Given - Provider: Lillian Michele RN) 0731 ($Given - Provider: Radha Healy, ZITA)2021 ($Given - Provider: Paloma Marquez, ZITA) 0909 ($Given - Provider: Dyan Washburn RN) CT scan flush (COMPLETED) Intravenous, 100 mL, ONCE, On Tue12/10/22 at 1200, For 1 dose, This entry is for use by Radiology to intermittently used as a flush in patients receiving a CT scan. 1131 ($Given - Provider: Dinorah Montejo) desvenlafaxine (PRISTIQ) 24 hr tablet 100 mg 100 mg, Oral, DAILY, First dose on Tue12/03/22 at 1800, DO NOT CRUSH 0757 ($Given - Provider: Hamida Calle RN) 0735 ($Given - Provider: Radha Healy, ZITA) 0910 ($Given - Provider: Dyan Washburn, ZITA) desvenlafaxine (PRISTIQ) 24 hr tablet 50 mg 50 mg, Oral, DAILY, First dose on Tue12/03/22 at 1800, DO NOT CRUSH. 0757 ($Given - Provider: Hamida Calle RN) 0732 ($Given - Provider: Radha Healy, ZITA) 0912 ($Given - Provider: Dyan Washburn, ZITA) enoxaparin ANTICOAGULANT (LOVENOX) injection 40 mg 40 mg, Subcutaneous, EVERY 24 HOURS, First dose on Tue12/03/22 at 1800, HOLD if platelet count falls below 50% of baseline or less than 100,000/??L and notify provider. 1709 ($Given - Provider: Lillian Michele RN) 1735 ($Given - Provider: Paloma Marquez RN) 1800 (Canceled Entry - Provider: Orders Generic Provider - Comment: Automatically canceled at discontinue of medication order) fenofibrate (LOFIBRA) tablet 54 mg 54 mg, Oral, DAILY, First dose on Tue12/04/22 at 0800 0753 ($Given - Provider: Hamida Calle RN) 0730 ($Given - Provider: Radha Healy, ZITA) 0910 ($Given - Provider: Dyan Washburn, ZITA) ferrous sulfate (FEROSUL) tablet 325 mg 325 mg, Oral, DAILY WITH BREAKFAST, First dose on 12/04/22 at 0800, Absorbed best on an empty stomach. If stomach upset occurs, can take with meals. 0754 ($Given - Provider: Hamida Calle RN) 0732 ($Given - Provider: Radha Healy, ZITA) 0910 ($Given - Provider: Dyan Washburn, ZITA) glimepiride (AMARYL) tablet 2 mg 2 mg, Oral, DAILY WITH BREAKFAST, First dose on Tue12/09/22 at 0800, Take before or with meals. 0755 ($Given - Provider: Hamida Calle RN) 0731 ($Given - Provider: Radha Healy, ZITA) 0909 ($Given - Provider: Dyan Washburn, ZITA) hydrOXYzine (ATARAX) tablet 25 mg 25 mg, Oral, 4 TIMES DAILY, First dose on Tue12/03/22 at 2000 0754 ($Given - Provider: Hamida Calle RN)1159 ($Given - Provider: Hamida Calle RN)1708 ($Given - Provider: Lillian Michele RN)1956 ($Given - Provider: Lillian Michele RN) 0732 ($Given - Provider: Radha Healy RN)1345 ($Given - Provider: Radha Healy, ZITA)1734 ($Given - Provider: Paloma Marquez RN)2305 ($Given - Provider: Paloma Marquez RN) 0909 ($Given - Provider: Dyan Washburn RN)1341 (Not Given - Provider: Dyan Washburn RN - Reason: Patient sleeping)1600 (Canceled Entry - Provider: Orders Generic Provider - Comment: Automatically canceled at discontinue of medication order) insulin aspart (NovoLOG) injection (RAPID ACTING) 1-7 Units, Subcutaneous, 3 TIMES DAILY BEFORE MEALS, First dose on Tue12/06/22 at 1700, Correction Scale - MEDIUM INSULIN RESISTANCE DOSING Do Not give Correction Insulin if Pre-Meal BG less than 140. For Pre-Meal BG 140 - 189 give 1 unit. For Pre-Meal BG 190 - 239 give 2 units. For Pre-Meal BG 240 - 289 give 3 units. For Pre-Meal BG 290 - 339 give 4 units. For Pre-Meal BG 340- 399 give 5 units. For Pre-Meal BG 400-449 give 6 units For Pre-Meal BG greater than or equal to 450 give 7 units. To be given with prandial insulin, and based on pre-meal blood glucose. Notify provider if glucose greater than or equal to 350 mg/dL after administration of correction dose. If given at mealtime, administer within 30 minutes of start of meal. 0807 (Not Given - Provider: Hamida Calle RN - Reason: Order parameters not met - Comment: serum [phone] ($Given - Provider: Hamida Calle RN)1812 (Not Given - Provider: Lillian Michele RN - Reason: Order parameters not met) 0740 ($Given - Provider: Radha Healy RN)1351 (Not Given - Provider: Radha Healy RN - Reason: Order parameters not met)1821 ($Given - Provider: Paloma Marquez, ZITA) 0734 (Not Given - Provider: Dyan Washburn RN - Reason: Contraindicated - Comment: bg [phone] ($Given - Provider: Dyan Washburn RN - Comment: bg [phone] (Canceled Entry - Provider: Orders Generic Provider - Comment: Automatically canceled at discontinue of medication order) insulin aspart (NovoLOG) injection (RAPID ACTING) 1-5 Units, Subcutaneous, AT BEDTIME, First dose on Tue12/06/22 at 2200, MEDIUM INSULIN RESISTANCE DOSING Do Not give Bedtime Correction Insulin if BG less than 200. For BG 200 - 249 give 1 units. For BG 250 - 299 give 2 units. For BG 300 - 349 give 3 units. For BG 350 -399 give 4 units. For BG greater than or equal to 400 give 5 units. Notify provider if glucose greater than or equal to 350 mg/dL after administration of correction dose. If given at mealtime, administer within 30 minutes of start of meal. 2230 (Not Given - Provider: Lillian Michele RN - Reason: Order parameters not met) 2222 (Not Given - Provider: Paloma Marquez RN - Reason: Order parameters not met) iopamidol (ISOVUE-370) solution 500 mL (COMPLETED) 500 mL, Intravenous, ONCE, On Tue12/10/22 at 1200, For 1 dose 1131 ($Given - Provider: Dinorah Montejo) levothyroxine (SYNTHROID/LEVOTHROID) tablet 350 mcg 350 mcg, Oral, DAILY, First dose on Tue12/03/22 at 1800, Separate oral administration of iron- or calcium-containing products and levothyroxine by at least 4 hours. 0753 ($Given - Provider: Hamida Calle RN) 0731 ($Given - Provider: Radha Healy RN) 0909 ($Given - Provider: Dyan Washburn RN) magnesium hydroxide (MILK OF MAGNESIA) suspension 30 mL (COMPLETED) 30 mL, Oral, ONCE, On Tue12/09/22 at 1100, For 1 dose, Hold for loose stools. 1111 ($Given - Provider: Hamida Calle RN) methocarbamol (ROBAXIN) tablet 1,000 mg 1,000 mg, Oral, 4 TIMES DAILY, First dose on Tue12/03/22 at 1999 0754 ($Given - Provider: Hamida Calle RN)1159 ($Given - Provider: Hamida Calle RN)1708 ($Given - Provider: Lillian Michele RN)1956 ($Given - Provider: Lillian Michele, ZITA) 0730 ($Given - Provider: Radha Healy RN)1344 ($Given - Provider: Radha Healy RN)1734 ($Given - Provider: Paloma Marquez RN)2306 ($Given - Provider: Paloma Marquez, ZITA) 0909 ($Given - Provider: Dyan Washburn RN)1341 (Not Given - Provider: Dyan Washburn RN - Reason: Patient sleeping)1600 (Canceled Entry - Provider: Orders Generic Provider - Comment: Automatically canceled at discontinue of medication order) metoprolol tartrate (LOPRESSOR) tablet 25 mg 25 mg, Oral, 2 TIMES DAILY, First dose on Tue12/03/22 at 1999, Hold if systolic blood pressure <110 0807 (Not Given - Provider: Hamida Calle RN - Reason: Order parameters not met)195 ($Given - Provider: Lillian Michele RN) 0732 ($Given - Provider: Radha Healy RN)2022 ($Given - Provider: Paloma Marquez RN) 0910 ($Given - Provider: Dyan Washburn RN) nicotine (NICODERM CQ) 21 MG/24HR 24 hr patch 1 patch 1 patch, Transdermal, DAILY, Administer over 24 Hours, First dose on Tue12/03/22 at 1800, Reminder: Remove previous patch before applying new patch. 0753 (Patch/Med Removed - Provider: Hamida Calle RN)0842 ($Patch/Med Applied - Provider: Hamida Calle RN) 0734 (Patch/Med Removed - Provider: Radha Healy, ZITA)0742 ($Patch/Med Applied - Provider: Radha Healy RN) 0900 ($Patch/Med Applied - Provider: Dyan Washburn, ZITA)0911 (Patch/Med Removed - Provider: Dyan Washburn, ZITA)1713 (Due: Patch/Med Removed - Provider: Orders Generic Provider - Comment: Time automatically adjusted from order being discontinued) nicotine Patch in Place First dose on Tue12/03/22 at 1800, Chart every shift, confirming that patch is still in place on patient (no barcode scan needed). See patch order for dose information. 0210 (Patch in Place - Provider: Long Guzman RN)0928 (Patch in Place - Provider: Hamida Calle RN)1710 (Patch in Place - Provider: Lillian Michele RN) 0139 (Patch Free Period - Provider: Keegan Hatch, ZITA)1042 (Patch in Place - Provider: Radha Healy, ZITA)1736 (Patch in Place - Provider: Paloma Marquez RN) 0326 (Patch in Place - Provider: Jovi Joseph RN)0911 (Patch in Place - Provider: Dyan Washburn, ZITA)1800 (Canceled Entry - Provider: Orders Generic Provider - Comment: Automatically canceled at discontinue of medication order) pantoprazole (PROTONIX) EC tablet 40 mg 40 mg, Oral, EVERY MORNING BEFORE BREAKFAST, First dose on Tue12/08/22 at 0730, DO NOT CRUSH. 0636 ($Given - Provider: Long Guzman RN) 0707 ($Given - Provider: Keegan Hatch RN) 0910 ($Given - Provider: Dyan Washburn, ZITA) polyethylene glycol (MIRALAX) Packet 85 g (COMPLETED) 85 g, Oral, ONCE, On Tue12/10/22 at 1300, For 1 dose, 1 Packet = 17 grams. Mix each gram with at least 1/2 ounce (15 mL) of water - 8 ounces for 17 g dose, 4 ounces for 8.5 g dose, 2 ounces for 4 g dose. Follow with the same volume of water. Hold for loose stools unless being administered as part of a bowel prep regimen or bowel clean out. 1343 ($Given - Provider: Radha Healy RN - Comment: per patient request) potassium chloride ER (K-TAB/KLOR-CON) CR tablet 10 mEq 10 mEq, Oral, DAILY, First dose on Tue12/03/22 at 1800, DO NOT CRUSH. 0755 ($Given - Provider: Hamida Calle RN) 0732 ($Given - Provider: Radha Healy RN) 0909 ($Given - Provider: Dyan Washburn RN) risperiDONE (risperDAL M-TABS) ODT tab 0.5 mg 0.5 mg, Sublingual, EVERY MORNING, First dose on 12/04/22 at 0800 0755 ($Given - Provider: Hamida Calle RN) 0730 ($Given - Provider: Radha Healy RN) 0909 ($Given - Provider: Dayn Washburn RN) rosuvastatin (CRESTOR) tablet 40 mg 40 mg, Oral, DAILY, First dose on Tue12/04/22 at 0800 0755 ($Given - Provider: Hamida Calle RN) 0730 ($Given - Provider: Radha Healy RN) 0909 ($Given - Provider: Dyan Washburn RN) sodium chloride (PF) 0.9% PF flush 3 mL 3 mL, Intracatheter, EVERY 8 HOURS, First dose on Tue12/03/22 at 1800, to lock peripheral IV dormant line 0209 ($Given - Provider: Long Guzman RN)0928 (Not Given - Provider: Hamida Calle RN - Reason: Other - Comment: given earlier w/meds)1711 ($Given - Provider: Lillian Michele RN) 0140 ($Given - Provider: Keegan Hatch RN)1103 ($Given - Provider: Radha Healy RN)1738 ($Given - Provider: Paloma Marquez, RN) 0232 ($Given - Provider: Jovi Joseph, ZITA)0917 ($Given - Provider: Dyan Washburn, ZITA)1800 (Canceled Entry - Provider: Orders Generic Provider - Comment: Automatically canceled at discontinue of medication order) PRN Medication Order 12/09/2022 12/10/2022 2022 acetaminophen (TYLENOL) Suppository 650 mg(Linked Group 1) 650 mg, Rectal, EVERY 6 HOURS PRN, mild pain, other, and adjunct with moderate or severe pain or per patient request, Starting on Tue12/03/22 at 1731, Alternate with ibuprofen if ordered. Maximum acetaminophen dose from all sources = 75 mg/kg/day not to exceed 4 grams/day. acetaminophen (TYLENOL) tablet 650 mg(Linked Group 1) 650 mg, Oral, EVERY 6 HOURS PRN, mild pain, other, and adjunct with moderate or severe pain or per patient request, Starting on Tue12/03/22 at 1731, Alternate with ibuprofen if ordered. Maximum acetaminophen dose from all sources = 75 mg/kg/day not to exceed 4 grams/day. albuterol (PROVENTIL HFA/VENTOLIN HFA) inhaler 2 puff, Inhalation, EVERY 4 HOURS PRN, shortness of breath, wheezing, Starting on Tue12/03/22 at 1731, Check the dose counter on the inhaler to ensure there are doses remaining before administering. bisacodyl (DULCOLAX) EC tablet 5 mg 5 mg, Oral, DAILY PRN, constipation, Starting on Tue12/08/22 at 1204, If patient has multiple oral constipation medications ordered PRN, offer in the following order per policy.?? Move to the next available step if the earlier step is ineffective. Step 1 - senna-s; Step 2 - bisacodyl; Step 3 - milk of magnesia; Step 4 - polyethylene glycol; Step 5 - magnesium citrate DO NOT CRUSH. Hold for loose stools unless being administered as part of a bowel prep regimen prior to a procedure. 0796 ($Given - Provider: Radha Healy RN) dextrose 50 % injection 25-50 mL(Linked Group 2) 25-50 mL, Intravenous, EVERY 15 MIN PRN, low blood sugar, Administer over 1-5 Minutes, Starting on Tue12/03/22 at 1731, Use if have IV access, BG less than 70 mg/dL and meet dose criteria below: Dose if conscious and alert (or disorientated) and NPO = 25 mL Dose if unconscious / not alert = 50 mL Give first dose for initial blood glucose less than 70 mg/dL. If blood glucose at 15 minute recheck is less than or equal to 100 mg/dL continue to administer carbohydrate treatment every 15 minutes, as needed, based on blood glucose and assessment parameters until blood glucose level is above 100 mg/dL. Vesicant. glucagon injection 1 mg(Linked Group 2) 1 mg, Subcutaneous, EVERY 15 MIN PRN, low blood sugar, May repeat x 1 only, Starting on Tue12/03/22 at 1731, May give SQ or IM. ONLY use glucagon IF patient has NO IV access AND is UNABLE to swallow AND blood glucose is LESS than or EQUAL to 50 mg/dL. glucose gel 15-30 g(Linked Group 2) 15-30 g, Oral, EVERY 15 MIN PRN, low blood sugar, Starting on Tue12/03/22 at 1731, Give first dose for initial blood glucose less than 70 mg/dL per the dosing instructions below. If blood glucose at 15 minute rechecks is still less than or equal to 100 mg/dL, continue to administer doses per blood glucose parameters every 15 minutes, as needed, until blood glucose level is above 100 mg/dL. Dosing Instructions: ~If patient is conscious and able to swallow and NO enteral tube For initial BG 51-69mg/dL OR 15 minute recheck BG 51- 100 mg/dL - give 15 g For BG less than or equal to 50 mg/dL - give 30 g ~ If Enteral tube For initial BG 51-69mg/dL OR 15 minute recheck BG 51- 100 mg/dL - give apple juice 120 mL (4 oz or 15 g of CHO) via enteral tube For BG less than or equal to 50 mg/dL - Give apple juice 240 mL (8 oz or 30 g of CHO) via enteral tube ~Oral gel is preferable for conscious and able to swallow patient. ~IF gel unavailable or patient refuses may provide apple juice per Enteral tube dosing instructions. Document juice on I and O flowsheet. hydrALAZINE (APRESOLINE) injection 10 mg 10 mg, Intravenous, EVERY 4 HOURS PRN, high blood pressure, give for SBP > 180, Starting on Tue12/03/22 at 1731 HYDROmorphone (DILAUDID) tablet 4 mg 4 mg, Oral, EVERY 8 HOURS PRN, moderate pain, IF pain not managed with non-pharmacological and non-opioid interventions, Starting on Tue12/08/22 at 0830, May use concomitant with non-opioid analgesics. 0636 ($Given - Provider: Long Guzman, RN)1427 ($Given - Provider: Hamida Calle, RN) 0137 ($Given - Provider: Keegan Hatch, RN)1348 ($Given - Provider: Radha Healy, ZITA) 0012 ($Given - Provider: Jovi Joseph, ZITA)0909 ($Given - Provider: Dyan Washburn, ZITA)1704 ($Given - Provider: Paloma Marquez, ZITA) ketorolac (TORADOL) injection 15 mg 15 mg, Intravenous, EVERY 6 HOURS PRN, inflammatory pain, Starting on Tue12/04/22 at 1043, For 5 doses, Can cause pain on injection. If ordered intravenously (IV) : administer through a running maintenance fluid over 1 minute followed by a flush. If patient complains of pain on injection, may dilute 15-30 mg in 5 mL and push over 1 to 2 minutes. 0452 ($Given - Provider: Jovi Joseph, ZITA) lidocaine (LMX4) cream Topical, EVERY 1 HOUR PRN, pain, with VAD insertion, Starting on Tue12/03/22 at 1731, Apply at least 30 minutes prior to VAD insertion in divided doses as needed for size of site for insertion. MAX Dose: 2.5 g (?? of 5 g tube) Do NOT give if patient has a history of allergy to any local anesthetic or any teri product. Do NOT use both lidocaine intradermal/subcutaneous injection and the lidocaine cream on the same site. lidocaine 1 % 0.1-1 mL 0.1-1 mL, Other, EVERY 1 HOUR PRN, mild pain with VAD insertion, Starting on Tue12/03/22 at 1731, MAX dose 1 mL subcutaneous OR intradermal along the side of the vein in divided doses as needed for VAD insertion. Do NOT give if patient has a history of allergy to any local anesthetic or any teri product. Do NOT use both lidocaine intradermal/subcutaneous injection and the lidocaine cream on the same site. LORazepam (ATIVAN) injection 0.5 mg 0.5 mg, Intravenous, EVERY 4 HOURS PRN, anxiety, nausea, Starting on Tue12/03/22 at 2101, This drug may cause significant respiratory depression. Monitor respiratory status and vital signs carefully for 1 hour after each dose. 0214 ($Given - Provider: Long Guzman RN)0751 ($Given - Provider: Hamida Calle RN)1159 ($Given - Provider: Hamida Calle RN)1731 ($Given - Provider: Lillian Michele RN)2228 ($Given - Provider: Lillian Michele RN) 0256 ($Given - Provider: Keegan Hatch RN)0707 ($Given - Provider: Keegan Hatch RN)1102 ($Given - Provider: Radha Healy RN)1620 ($Given - Provider: Paloma Marquez, ZITA)2154 ($Given - Provider: Paloma Marquez, ZITA) 0236 ($Given - Provider: Jovi Joseph, ZITA)0635 ($Given - Provider: Jovi Joseph RN)1048 ($Given - Provider: Dyan Washburn, ZITA)1452 ($Given - Provider: Dyan Washburn, ZITA) magnesium hydroxide (MILK OF MAGNESIA) suspension 15-30 mL 15-30 mL, Oral, DAILY PRN, constipation, Starting on Tue12/08/22 at 1203, If patient has multiple oral constipation medications ordered PRN, offer in the following order per policy.?? Move to the next available step if the earlier step is ineffective. Step 1 - senna-s; Step 2 - bisacodyl; Step 3 - milk of magnesia; Step 4 - polyethylene glycol; Step 5 - magnesium citrate Hold for loose stools. melatonin tablet 1 mg 1 mg, Oral, AT BEDTIME PRN, sleep, Starting on Tue12/03/22 at 1731, Do not give unless at least 6 hours of uninterrupted sleep is expected. naloxone (NARCAN) injection 0.2 mg(Linked Group 3) 0.2 mg, Intravenous, EVERY 2 MIN PRN, opioid reversal, Starting on Tue12/03/22 at 1744, Administer intravenous route when available and notify provider when administered. For unintended sedation or respiratory depression if all of the below criteria are met: ~ respiratory rate LESS than or EQUAL to 8. ~SaO2 less than 92% and or/end-tidal CO2 is greater than 50. ~ the patient is receiving an opioid, has unintended sedations assessed as RASS (-3), and is currently not on mechanical ventilation. RASS scale moderate (-3) is movement or eye opening to voice but no eye contact. Patient Monitoring Once the patient has demonstrated a response to the naloxone, continue to monitor respiratory rate, depth, oxygen saturation and end-tidal CO2 (if available) every 15 minutes x 2, then every 30 minutes x 2, then every 1 hour x 1 after each naloxone dose. Consider transfer to ICU if patient respiratory parameters have not improved after 4 naloxone doses. naloxone (NARCAN) injection 0.2 mg(Linked Group 3) 0.2 mg, Intramuscular, EVERY 2 MIN PRN, opioid reversal, Starting on Tue12/03/22 at 1744, Administer intramuscular if an intravenous route is not available and notify provider when administered. For unintended sedation or respiratory depression if all of the below criteria are met: ~ respiratory rate LESS than or EQUAL to 8. ~SaO2 less than 92% and or/end-tidal CO2 is greater than 50. ~ the patient is receiving an opioid, has unintended sedations assessed as RASS (-3), and is currently not on mechanical ventilation. RASS scale moderate (-3) is movement or eye opening to voice but no eye contact. Patient Monitoring Once the patient has demonstrated a response to the naloxone, continue to monitor respiratory rate, depth, oxygen saturation and end-tidal CO2 (if available) every 15 minutes x 2, then every 30 minutes x 2, then every 1 hour x 1 after each naloxone dose. Consider transfer to ICU if patient respiratory parameters have not improved after 4 naloxone doses. naloxone (NARCAN) injection 0.4 mg(Linked Group 3) 0.4 mg, Intravenous, EVERY 2 MIN PRN, opioid reversal, Starting on Tue12/03/22 at 1744, Administer intravenous route when available and notify provider when administered. For unintended sedation or respiratory depression if all of the below criteria are met: ~ respiratory rate LESS than or EQUAL to 8. ~ SaO2 less than 92% and or/end-tidal CO2 is greater than 50. ~ the patient is receiving an opioid, has unintended sedation assessed as RASS (-4) or (-5) and patient is currently not on mechanical ventilation. RASS scale (-4) is deep sedation with no response to voice but movement or eye opening to physical stimulation. RASS scale (-5) is unarousable. Patient Monitoring Once the patient has demonstrated a response to the naloxone, continue to monitor respiratory rate, depth, oxygen saturation and end-tidal CO2 (if available) every 15 minutes x 2, then every 30 minutes x 2, then every 1 hour x 1 after each naloxone dose. Consider transfer to ICU if patient respiratory parameters have not improved after 4 naloxone doses. naloxone (NARCAN) injection 0.4 mg(Linked Group 3) 0.4 mg, Intramuscular, EVERY 2 MIN PRN, opioid reversal, Starting on Tue12/03/22 at 1744, Administer intramuscular if an intravenous route is not available and notify provider when administered. For unintended sedation or respiratory depression if all of the below criteria are met: ~ respiratory rate LESS than or EQUAL to 8. ~ SaO2 less than 92% and or/end-tidal CO2 is greater than 50. ~ the patient is receiving an opioid, has unintended sedation assessed as RASS (-4) or (-5) and patient is currently not on mechanical ventilation. RASS scale (-4) is deep sedation with no response to voice but movement or eye opening to physical stimulation. RASS scale (-5) is unarousable. Patient Monitoring Once the patient has demonstrated a response to the naloxone, continue to monitor respiratory rate, depth, oxygen saturation and end-tidal CO2 (if available) every 15 minutes x 2, then every 30 minutes x 2, then every 1 hour x 1 after each naloxone dose. Consider transfer to ICU if patient respiratory parameters have not improved after 4 naloxone doses. ondansetron (ZOFRAN ODT) ODT tab 4 mg(Linked Group 4) 4 mg, Oral, EVERY 6 HOURS PRN, nausea, vomiting, Starting on Tue12/03/22 at 1731, This is Step 1 of nausea and vomiting management. If nausea not resolved in 15 minutes, go to Step 2 prochlorperazine (COMPAZINE). With dry hands, peel back foil backing and gently remove tablet. Do not push oral disintegrating tablet through foil backing. Administer immediately on tongue and oral disintegrating tablet dissolves in seconds, then swallow with saliva. Liquid not required. ondansetron (ZOFRAN) injection 4 mg(Linked Group 4) 4 mg, Intravenous, EVERY 6 HOURS PRN, nausea, vomiting, Administer over 2-5 Minutes, Starting on Tue12/03/22 at 1731, Give IF patient unable to tolerate oral medication. This is Step 1 of nausea and vomiting management. If nausea not resolved in 15 minutes, go to Step 2 prochlorperazine (COMPAZINE). Irritant. senna-docusate (SENOKOT-S/PERICOLACE) 8.6-50 MG per tablet 1 tablet(Linked Group 5) 1 tablet, Oral, 2 TIMES DAILY PRN, constipation, Starting on Tue12/03/22 at 1731, If no bowel movement in 24 hours, increase to 2 tablets by mouth. IF more than 1 constipation PRN medication is ordered, administer step-perez as indicated, moving to the next step ONLY if prior step ineffective. Step 1: senna-docusate (SENOKOT-S; PERICOLACE) OR bisacodyl (DULCOLAX) EC tablet Step 2: magnesium hydroxide (MILK OF MAGNESIA) OR polyethylene glycol (MIRALAX/GLYCOLAX) Step 3: bisacodyl (DULCOLAX) suppository Step 4: sodium phosphate (FLEET ENEMA) Hold for loose stools. senna-docusate (SENOKOT-S/PERICOLACE) 8.6-50 MG per tablet 2 tablet(Linked Group 5) 2 tablet, Oral, 2 TIMES DAILY PRN, constipation, Starting on Tue12/03/22 at 1731, IF more than 1 constipation PRN medication is ordered, administer step-perez as indicated, moving to the next step ONLY if prior step ineffective. Step 1: senna-docusate (SENOKOT-S; PERICOLACE) OR bisacodyl (DULCOLAX) EC tablet Step 2: magnesium hydroxide (MILK OF MAGNESIA) OR polyethylene glycol (MIRALAX/GLYCOLAX) Step 3: bisacodyl (DULCOLAX) suppository Step 4: sodium phosphate (FLEET ENEMA) Hold for loose stools. simethicone (MYLICON) chewable tablet 80 mg 80 mg, Oral, EVERY 6 HOURS PRN, flatulence, cramping, Starting on Tue12/03/22 at 1731 sodium chloride (PF) 0.9% PF flush 3 mL 3 mL, Intracatheter, EVERY 1 MIN PRN, line flush, other, to ensure patency or to lock dormant line, Starting on Tue12/03/22 at 1731 1200 ($Given - Provider: Hamida Calle RN) Linked Groups Order Group 1: acetaminophen (TYLENOL) tablet 650 mgJump to med 650 mg, Oral, EVERY 6 HOURS PRN, mild pain, other, and adjunct with moderate or severe pain or per patient request, Starting on Tue12/03/22 at 1731, Alternate with ibuprofen if ordered. Maximum acetaminophen dose from all sources = 75 mg/kg/day not to exceed 4 grams/day. Or acetaminophen (TYLENOL) Suppository 650 mgJump to med 650 mg, Rectal, EVERY 6 HOURS PRN, mild pain, other, and adjunct with moderate or severe pain or per patient request, Starting on Tue12/03/22 at 1731, Alternate with ibuprofen if ordered. Maximum acetaminophen dose from all sources = 75 mg/kg/day not to exceed 4 grams/day. Group 2: glucose gel 15-30 gJump to med 15-30 g, Oral, EVERY 15 MIN PRN, low blood sugar, Starting on Tue12/03/22 at 1731, Give first dose for initial blood glucose less than 70 mg/dL per the dosing instructions below. If blood glucose at 15 minute rechecks is still less than or equal to 100 mg/dL, continue to administer doses per blood glucose parameters every 15 minutes, as needed, until blood glucose level is above 100 mg/dL. Dosing Instructions: ~If patient is conscious and able to swallow and NO enteral tube For initial BG 51-69mg/dL OR 15 minute recheck BG 51- 100 mg/dL - give 15 g For BG less than or equal to 50 mg/dL - give 30 g ~ If Enteral tube For initial BG 51- 69mg/dL OR 15 minute recheck BG 51- 100 mg/dL - give apple juice 120 mL (4 oz or 15 g of CHO) via enteral tube For BG less than or equal to 50 mg/dL - Give apple juice 240 mL (8 oz or 30 g of CHO) via enteral tube ~Oral gel is preferable for conscious and able to swallow patient. ~IF gel unavailable or patient refuses may provide apple juice per Enteral tube dosing instructions. Document juice on I and O flowsheet. Or dextrose 50 % injection 25-50 mLJump to med 25-50 mL, Intravenous, EVERY 15 MIN PRN, low blood sugar, Administer over 1-5 Minutes, Starting on Tue12/03/22 at 1731, Use if have IV access, BG less than 70 mg/dL and meet dose criteria below: Dose if conscious and alert (or disorientated) and NPO = 25 mL Dose if unconscious / not alert = 50 mL Give first dose for initial blood glucose less than 70 mg/dL. If blood glucose at 15 minute recheck is less than or equal to 100 mg/dL continue to administer carbohydrate treatment every 15 minutes, as needed, based on blood glucose and assessment parameters until blood glucose level is above 100 mg/dL. Vesicant. Or glucagon injection 1 mgJump to med 1 mg, Subcutaneous, EVERY 15 MIN PRN, low blood sugar, May repeat x 1 only, Starting on Tue12/03/22 at 1731, May give SQ or IM. ONLY use glucagon IF patient has NO IV access AND is UNABLE to swallow AND blood glucose is LESS than or EQUAL to 50 mg/dL. Group 3: naloxone (NARCAN) injection 0.2 mgJump to med 0.2 mg, Intravenous, EVERY 2 MIN PRN, opioid reversal, Starting on Tue12/03/22 at 1744, Administer intravenous route when available and notify provider when administered. For unintended sedation or respiratory depression if all of the below criteria are met: ~ respiratory rate LESS than or EQUAL to 8. ~SaO2 less than 92% and or/end-tidal CO2 is greater than 50. ~ the patient is receiving an opioid, has unintended sedations assessed as RASS (-3), and is currently not on mechanical ventilation. RASS scale moderate (-3) is movement or eye opening to voice but no eye contact. Patient Monitoring Once the patient has demonstrated a response to the naloxone, continue to monitor respiratory rate, depth, oxygen saturation and end-tidal CO2 (if available) every 15 minutes x 2, then every 30 minutes x 2, then every 1 hour x 1 after each naloxone dose. Consider transfer to ICU if patient respiratory parameters have not improved after 4 naloxone doses. Or naloxone (NARCAN) injection 0.4 mgJump to med 0.4 mg, Intravenous, EVERY 2 MIN PRN, opioid reversal, Starting on Tue12/03/22 at 1744, Administer intravenous route when available and notify provider when administered. For unintended sedation or respiratory depression if all of the below criteria are met: ~ respiratory rate LESS than or EQUAL to 8. ~ SaO2 less than 92% and or/end-tidal CO2 is greater than 50. ~ the patient is receiving an opioid, has unintended sedation assessed as RASS (-4) or (-5) and patient is currently not on mechanical ventilation. RASS scale (-4) is deep sedation with no response to voice but movement or eye opening to physical stimulation. RASS scale (-5) is unarousable. Patient Monitoring Once the patient has demonstrated a response to the naloxone, continue to monitor respiratory rate, depth, oxygen saturation and end-tidal CO2 (if available) every 15 minutes x 2, then every 30 minutes x 2, then every 1 hour x 1 after each naloxone dose. Consider transfer to ICU if patient respiratory parameters have not improved after 4 naloxone doses. Or naloxone (NARCAN) injection 0.2 mgJump to med 0.2 mg, Intramuscular, EVERY 2 MIN PRN, opioid reversal, Starting on Tue12/03/22 at 1744, Administer intramuscular if an intravenous route is not available and notify provider when administered. For unintended sedation or respiratory depression if all of the below criteria are met: ~ respiratory rate LESS than or EQUAL to 8. ~SaO2 less than 92% and or/end-tidal CO2 is greater than 50. ~ the patient is receiving an opioid, has unintended sedations assessed as RASS (-3), and is currently not on mechanical ventilation. RASS scale moderate (-3) is movement or eye opening to voice but no eye contact. Patient Monitoring Once the patient has demonstrated a response to the naloxone, continue to monitor respiratory rate, depth, oxygen saturation and end-tidal CO2 (if available) every 15 minutes x 2, then every 30 minutes x 2, then every 1 hour x 1 after each naloxone dose. Consider transfer to ICU if patient respiratory parameters have not improved after 4 naloxone doses. Or naloxone (NARCAN) injection 0.4 mgJump to med 0.4 mg, Intramuscular, EVERY 2 MIN PRN, opioid reversal, Starting on Tue12/03/22 at 1744, Administer intramuscular if an intravenous route is not available and notify provider when administered. For unintended sedation or respiratory depression if all of the below criteria are met: ~ respiratory rate LESS than or EQUAL to 8. ~ SaO2 less than 92% and or/end-tidal CO2 is greater than 50. ~ the patient is receiving an opioid, has unintended sedation assessed as RASS (-4) or (-5) and patient is currently not on mechanical ventilation. RASS scale (-4) is deep sedation with no response to voice but movement or eye opening to physical stimulation. RASS scale (-5) is unarousable. Patient Monitoring Once the patient has demonstrated a response to the naloxone, continue to monitor respiratory rate, depth, oxygen saturation and end-tidal CO2 (if available) every 15 minutes x 2, then every 30 minutes x 2, then every 1 hour x 1 after each naloxone dose. Consider transfer to ICU if patient respiratory parameters have not improved after 4 naloxone doses. Group 4: ondansetron (ZOFRAN ODT) ODT tab 4 mgJump to med 4 mg, Oral, EVERY 6 HOURS PRN, nausea, vomiting, Starting on Tue12/03/22 at 1731, This is Step 1 of nausea and vomiting management. If nausea not resolved in 15 minutes, go to Step 2 prochlorperazine (COMPAZINE). With dry hands, peel back foil backing and gently remove tablet. Do not push oral disintegrating tablet through foil backing. Administer immediately on tongue and oral disintegrating tablet dissolves in seconds, then swallow with saliva. Liquid not required. Or ondansetron (ZOFRAN) injection 4 mgJump to med 4 mg, Intravenous, EVERY 6 HOURS PRN, nausea, vomiting, Administer over 2-5 Minutes, Starting on Tue12/03/22 at 1731, Give IF patient unable to tolerate oral medication. This is Step 1 of nausea and vomiting management. If nausea not resolved in 15 minutes, go to Step 2 prochlorperazine (COMPAZINE). Irritant. Group 5: senna-docusate (SENOKOT-S/PERICOLACE) 8.6-50 MG per tablet 1 tabletJump to med 1 tablet, Oral, 2 TIMES DAILY PRN, constipation, Starting on Tue12/03/22 at 1731, If no bowel movement in 24 hours, increase to 2 tablets by mouth. IF more than 1 constipation PRN medication is ordered, administer step-perez as indicated, moving to the next step ONLY if prior step ineffective. Step 1: senna-docusate (SENOKOT-S; PERICOLACE) OR bisacodyl (DULCOLAX) EC tablet Step 2: magnesium hydroxide (MILK OF MAGNESIA) OR polyethylene glycol (MIRALAX/GLYCOLAX) Step 3: bisacodyl (DULCOLAX) suppository Step 4: sodium phosphate (FLEET ENEMA) Hold for loose stools. Or senna-docusate (SENOKOT-S/PERICOLACE) 8.6-50 MG per tablet 2 tabletJump to med 2 tablet, Oral, 2 TIMES DAILY PRN, constipation, Starting on Tue12/03/22 at 1731, IF more than 1 constipation PRN medication is ordered, administer step-perez as indicated, moving to the next step ONLY if prior step ineffective. Step 1: senna-docusate (SENOKOT-S; PERICOLACE) OR bisacodyl (DULCOLAX) EC tablet Step 2: magnesium hydroxide (MILK OF MAGNESIA) OR polyethylene glycol (MIRALAX/GLYCOLAX) Step 3: bisacodyl (DULCOLAX) suppository Step 4: sodium phosphate (FLEET ENEMA) Hold for loose stools. documented in this encounter Additional Health Concerns Infection Onset Date Last Indicated Resolved Time Rule Out C-difficile 12/05/2022 12/05/2022 023 9:44 AM CDT Assessment Noted Time PHQ-9 Depression Total Score: 10 023 8:26 AM CDT documented as of this encounter Care Teams Blanket Inspector Relationship Specialty [place] [address] [address] [address] PCP - General Family Medicine 05/18/22 Jovany Gonzalez MD [facility] [address] [facility] [address] [place] [address] Orthopedics 02/15/17 Staci Woodward SULKY DRIVER [place] [address] [place] [address] Nurse Practitioner Nurse Practitioner Psych/Mental Health 05/10/17 Reanna Smith, RD [place] [address] [place] [address] Dosier Operator Dietitian, Registered 07/25/19 Roshni Nascimento, RN Personal Advocate & Liaison (PAL) Family Medicine 08/18/20 Kiet Swain MD [address] [place] [address] [phone] Referring Physician Psychiatry 09/19/20 Winsome Pike APRN POLISH COMPOUNDER [address] [place] [address] [phone] Nurse Practitioner Psychiatry 09/19/20 Tori Hines, [facility] [address] [place] [address] [phone] Coremaker Apprentice Coremaker Apprentice - Clinical 09/19/20 Miranda Queen [facility] [address] [place] [address] Pharmacist Pharmacist 11/12/20 Marisel Armando MD [address] [place] [address] [phone] Gastroenterology 02/05/21 Marisel Armando MD [address] [place] [address] [phone] Assigned Gastroenterology Provider 03/08/21 12/24/22 Wesley Barrett MD [address] [facility] 96 [place], [place] 390575 Assigned Neuroscience Provider 05/10/21 [place] [address] [place] [address] Assigned PCP 05/15/22 Katiana Read MD [address] [place] [address] 200 [place], [place] 663830 Assigned Endocrinology Provider 06/19/22 [place] [address] [address] 178197 Assigned Behavioral Health Provider 07/03/22 12/31/22 [place] [address] [address] [place] 537147 Nurse Practitioner Nurse Practitioner 10/18/22 Elham Stack, [facility] [address] [facility] [place] [address] Pharmacist Pharmacist 10/19/22 Mary Del Cid, RAFAEL [address] [address] [place] [address] Assigned Pain Medication Provider 10/30/22 12/03/22 Michelle Guzman DPM, Podiatry/Foot and Ankle Surgery [address] [place] [address] Assigned Musculoskeletal Provider 10/16/22 04/08/23 [place] [address] [place] [address] Assigned Pain Medication Provider 12/04/22 04/01/23 documented as of this encounter
--- OUTSIDE RECORDS SUMMARY | 2023-08-03 10:01 | XMS_ITS | Encounter Summary ---
Author Name Unknown Organization [place] Address [address] [place] [address]. [place] [address] Care Team Providers Care Booth Cashier Name Role Phone Jovany Gonzalez MD Unavailable CrissyStaci jeong MOBILE LOUNGE DRIVER OR OPERATOR Unavailable [phone] Unavailable [phone] Roshni Nascimento RN Unavailable Unavailable Kiet Swain MD Unavailable [phone] Winsome Pike APRN SPRINKLER TRUCK DRIVER Unavailable [phone] Tori Hines [facility] Unavailable Miranda Queen [facility] Unavailable Unavailable Marisel Armando MD Unavailable Marisel Armando MD Unavailable Wesley Barrett MD Unavailable [phone] Dyan Fuentes MD Primary Care Provider [phone] Dyan Fuentes MD Unavailable [phone] Katiana Read MD Unavailable [phone] Meme Singleton PhD Unavailable [phone] Mary Del Cid MOBILE LOUNGE DRIVER OR OPERATOR Unavailable + [phone] Elham Stack [facility] Unavailable [phone] Mary Del Cid NP Unavailable [phone] Michelle Guzman DPM, Podiatry /Foot and Ankle Surgery Unavailable Dyan Fuentes MD Unavailable [phone] Mary Del Cid MOBILE LOUNGE DRIVER OR OPERATOR Unavailable [phone] Aubrey Jones MD Unavailable + [phone] Blanquita Morales Unavailable Unavailable Aubrey Jones MD Unavailable + [phone] Encounter Details Date Type Department Care Team (Late st Contact Info) Description 11/29/2022 [facility] Medical Advice [address] [address] Roshni Nascimento RN Social History Tobacco Use Types Packs/Day [...] week 10/16/2021 How often do you attend [facility] or jewish services? 1 to 4 times per year [...] Answer Date Recorded PHQ-2 Score 2 11/25/2022 [facility] - Occupational Stress Questionnaire Answer Date Recorded [...] in a halfway (including now)? No 10/16/2021 Education Answer Date [...] st Contact Info) Description 08/18/2023 3:00 PM REWINDER OPERATOR Office Visit [facility] [address] [place] [address] Katiana Read MD [address] [facility] 200 [place], [place] [phone] documented as of this encounter Visit Diagnoses Not on filedocumented in this encounter Additional Health Concerns Infection Onset Date Last Indicated Resolved Time Rule Out C-difficile 12/05/2022 12/05/2022 023 9:44 AM CDT Assessment Noted Time PHQ-9 Depression Total Score: 10 023 8:26 AM CDT documented as of this encounter Care Teams Booth Cashier Relationship Specialty [place] [address] [place] [address] PCP - General Family Medicine 05/18/22 Jovany Gonzalez MD [facility] 6600 [facility] 605 [place], [place] 369995 Orthopedics 02/15/17 Staci Woodward NP [facility] [address] [place], [place] [address] Nurse Practitioner Nurse Practitioner Psych/Mental Health 05/10/17 Reanna Smith, RD [facility] [address] [place] [address] Environmental Educator Dietitian, Registered 07/25/19 Roshni Nascimento, RN Personal Advocate & Liaison (PAL) Family Medicine 08/18/20 Kiet Swain MD [address] [place], [place] 113[address] [place] [address] Referring Physician Psychiatry 09/19/20 Winsome Pike APRN SPRINKLER TRUCK DRIVER [address] [place] [address] [phone] Nurse Practitioner Psychiatry 09/19/20 Tori Hines [facility] [address] [place] [address] [phone] Branch Logistics Supervisor Branch Logistics Supervisor - Clinical 09/19/20 Miranda Queen [facility] [address] [place] [address] Pharmacist Pharmacist 11/12/20 Marisel Armando MD [address] [place] [address] 646285 Gastroenterology 02/05/21 Marisel Armando MD [address] [place] [address] [phone] Assigned Gastroenterology Provider 03/08/21 12/24/22 Wesley Barrett MD [address] [place] [address] 96 [place], [place] 911515 Assigned Neuroscience Provider 05/10/21 [place] [address] [place] [address] Assigned PCP 05/15/22 Katiana Read MD [address] [address] Assigned Endocrinology Provider 06/19/22 Meme Singleton, PhD [address] [place] [address] Assigned Behavioral Health Provider 07/03/22 12/31/22 Mary Del Cid, RAFAEL [address] [place] [address] Nurse Practitioner Nurse Practitioner 10/18/22 Elham Stack, [facility] [address] [place] [address] Pharmacist Pharmacist 10/19/22 Mary Del Cid, RAFAEL [address] [place] [address] Assigned Pain Medication Provider 10/30/22 12/03/22 Michelle Guzman, DPM, Podiatry/Foot and Ankle Surgery [address] [place] [address] Assigned Musculoskeletal Provider 10/16/22 04/08/23 [place] [address] [place] [address] Assigned Pain Medication Provider 12/04/22 04/01/23 [place] [address] [address] [address] Nurse Practitioner Nurse Practitioner 01/17/23 01/17/23 Aubrey Jones MD [address] [address] Cardiovascular Disease 03/28/23 Blanquita Morales Environmental Educator Diabetes Education 04/25/23 Aubrey Jones MD [address] [place] [address] Assigned Heart and Vascular Provider 05/07/23 documented as of this encounter
--- OUTSIDE RECORDS SUMMARY | 2023-08-03 10:01 | XMS_ITS | Encounter Summary ---
Author Name Unknown Organization [place] Address [address] [place] [address]. [place] [address] Care Team Providers Care Qualitative Researcher Name Role Phone Jovany Gonzalez MD Unavailable CrissyStaci jeong FEATURE WRITER Unavailable [phone] Unavailable Roshni Nascimento RN Unavailable Unavailable Kiet Swain MD Unavailable Winsome Pike APRN OFFICE BOOKKEEPER Unavailable [phone] Tori Hines [facility] Unavailable Miranda Queen [facility] Unavailable Unavailable Marisel Armando MD Unavailable Marisel Armando MD Unavailable Wesley Barrett MD Unavailable [phone] Dyan Fuentes MD Primary Care Provider [phone] Dyan Fuentes MD Unavailable [phone] Katiana Read MD Unavailable [phone] Meme Singleton PhD Unavailable [phone] Mary Del Cid FEATURE WRITER Unavailable + [phone] Ehlam Stack [facility] Unavailable [phone] Mary Del Cid FEATURE WRITER Unavailable [phone] Michelle Guzman DPM, Podiatry /Foot and Ankle Surgery Unavailable Encounter Details Date Type Department Care Team (Latest Contact Info) Description 12/03/2022 Travel Social History Tobacco Use Types Packs/Day [...] week 10/16/2021 How often do you attend [facility] or presybeterian services? 1 to 4 times per year 10/16/2021 Do you belong to any clubs o r organizations such as shinto groups, unions, fraternal or athletic groups, or [...] Answer Date Recorded PHQ-2 Score 2 11/25/2022 [facility] Occupat ional Health - Occupational Stress [...] st Contact Info) Description 08/18/2023 3:00 PM WIG STYLIST Office Visit [place] [address] [place] [address] Katiana Read MD [address] [place] [address] documented as of this encounter Visit Diagnoses Not on filedocumented in this encounter Additional Health Concerns Assessment Noted Time PHQ-9 Depression Total Score: 10 023 8:26 AM CDT documented as of this encounter Care Teams Qualitative Researcher Relationship Specialty [place] [address] [place] [address] PCP - General Family Medicine 05/18/22 Jovany Gonzalez MD [facility] [address] [facility] 605 [place] [address] Orthopedics 02/15/17 Staci Woodward, FEATURE WRITER [place] [address] [place] [address] Nurse Practitioner Nurse Practitioner Psych/Mental Health 05/10/17 Reanna Smith, RD [place] [address] [place] [address] Icu Manager Dietitian, Registered 07/25/19 Roshni Nascimento, RN Personal Advocate & Liaison (PAL) Family Medicine 08/18/20 Kiet Swain MD [address] [facility] [address] [place] [address] Referring Physician Psychiatry 09/19/20 Winsome Pike APRN OFFICE BOOKKEEPER [address] [place], [place] 352794 Nurse Practitioner Psychiatry 09/19/20 Tori Hines, [facility] [address] [place], [place] 401874 House Painter House Painter - Clinical 09/19/20 Miranda Queen [facility] [address] [place] [address] Pharmacist Pharmacist 11/12/20 Marisel Armando MD [address] [place] [address] [phone] Gastroenterology 02/05/21 Marisel Armando MD [address] [place] [address] 932395 Assigned Gastroenterology Provider 03/08/21 12/24/22 Wesley Barrett MD [address] [place] [address] 405375 Assigned Neuroscience Provider 05/10/21 [place] [address] [place] [address] Assigned PCP 05/15/22 Katiana Read MD [address] [id number] Assigned Endocrinology Provider 06/19/22 [place] [address] [place] [address] Assigned Behavioral Health Provider 07/03/22 12/31/22 Mary Del Cid, RAFAEL [address] [place] [address] Nurse Practitioner Nurse Practitioner 10/18/22 Elham Stack, [facility] [address] [place] [address] Pharmacist Pharmacist 10/19/22 [place] [address] [place] [place] [address] Assigned Pain Medication Provider 10/30/22 12/03/22 Michelle Guzman, DPM, Podiatry/Foot and Ankle Surgery [address] [place] [address] Assigned Musculoskeletal Provider 10/16/22 04/08/23 documented as of this encounter
--- OUTSIDE RECORDS SUMMARY | 2023-08-03 10:01 | XMS_ITS | Encounter Summary ---
Author Name Unknown Organization [place] Address [address] [place] [address]. [place] [address] Care Team Providers Care Curriculum And Instruction Director Name Role Phone Jovany Gonzalez MD Unavailable CrissyStaci jeong BRAND DIRECTOR Unavailable [phone] Unavailable Roshni Nascimento RN Unavailable Unavailable Kiet Swain MD Unavailable [phone] Winsome iPke APRN PRACTICE REPRESENTATIVE Unavailable [phone] Tori Hines [facility] Unavailable Miranda Queen [facility] Unavailable Unavailable Marisel Armando MD Unavailable Marisel Armando MD Unavailable Wesley Barrett MD Unavailable [phone] Dyan Fuentes MD Primary Care Provider [phone] Dyan Fuentes MD Unavailable [phone] Katiana Read MD Unavailable [phone] Meme Singleton PhD Unavailable [phone] Mary Del Cid BRAND DIRECTOR Unavailable + [phone] Elham Stack [facility] Unavailable [phone] Mary Del Cid NP Unavailable [phone] Michelle Guzman DPM, Podiatry /Foot and Ankle Surgery Unavailable Dyan Fuentes MD Unavailable [phone] Mary Del Cid BRAND DIRECTOR Unavailable [phone] Aubrey Jones MD Unavailable + [phone] Blanquita Morales Unavailable Unavailable Aubrey Jones MD Unavailable + [phone] Encounter Details Date Type Department Care Team (Late st Contact Info) Description 11/26/2022 [facility] Medical Advice [address] [address] Lynda Oliver, ANIMAL CARE PROVIDER Social History Tobacco Use Types Packs/Day Years [...] week 10/16/2021 How often do you attend [facility] or scientologist services? 1 to 4 times per year [...] Answer Date Recorded PHQ-2 Score 2 11/25/2022 [facility] - Occupational Stress Questionnaire Answer [...] st Contact Info) Description 08/18/2023 3:00 PM WINTERIZER Office Visit [facility] [address] [place] [address] Katiana Read MD [address] [facility] 200 [place], [place] 60[address] documented as of this encounter Visit Diagnoses Not on filedocumented in this encounter Additional Health Concerns Infection Onset Date Last Indicated Resolved Time C-difficile 10/15/2022 10/27/2022 11/26/2022 11:4 0 PM CDT Rule Out C-difficile 12/05/2022 12/05/2022 023 9:44 AM CDT Assessment Noted Time PHQ-9 Depression Total Score: 10 023 8:26 AM CDT documented as of this encounter Care Teams Curriculum And Instruction Director Relationship Specialty [place] [address] [place] [address] PCP - General Family Medicine 05/18/22 Jovany Gonzalez MD [facility] 66[address] [facility] 605 [place] [address] Orthopedics 02/15/17 Staci Woodward, BRAND DIRECTOR [facility] [address] [place] [address] Nurse Practitioner Nurse Practitioner Psych/Mental Health 05/10/17 Reanna Smith, RD [facility] [address] [place] [address] Signal Repairer Dietitian, Registered 07/25/19 Roshni Nascimento, RN Personal Advocate & Liaison (PAL) Family Medicine 08/18/20 Kiet Swain MD [address] [place], [place] [address] [place], [place] 28[address]24 Referring Physician Psychiatry 09/19/20 Winsome Pike APRN PRACTICE REPRESENTATIVE [address] [place] [address] [phone] Nurse Practitioner Psychiatry 09/19/20 Tori Hines, [facility] [address] [place] [address] [phone] Air Crew Supervisor Air Crew Supervisor - Clinical 09/19/20 Miranda Queen [facility] [address] [place] [address] Pharmacist Pharmacist 11/12/20 Marisel Armando MD [address] [place] [address] 994825 Gastroenterology 02/05/21 Marisel Armando MD [address] [place] [address] 110525 Assigned Gastroenterology Provider 03/08/21 12/24/22 Wesley Barrett MD [address] [place] [address] 96 [place], [place] 514865 Assigned Neuroscience Provider 05/10/21 [place] [address] [place] [address] Assigned PCP 05/15/22 Katiana Read MD [address] [place] [address] 200 [place] [address] Assigned Endocrinology Provider 06/19/22 [place] [address] [address] [place] [address] Assigned Behavioral Health Provider 07/03/22 12/31/22 [place] [address] [address] [address] [place] [address] Nurse Practitioner Nurse Practitioner 10/18/22 Elham Stack, [facility] [address] [place] [address] Pharmacist Pharmacist 10/19/22 [place] [address] [address] [place] [address] Assigned Pain Medication Provider 10/30/22 12/03/22 Michelle Guzman DPM, Podiatry/Foot and Ankle Surgery [address] [facility] [place] [address] Assigned Musculoskeletal Provider 10/16/22 04/08/23 [place] [address] [place] [address] Assigned Pain Medication Provider 12/04/22 04/01/23 [place] [address] [address] [address] Nurse Practitioner Nurse Practitioner 01/17/23 01/17/23 Aubrey Jones MD [address] [address] Cardiovascular Disease 03/28/23 Blanquita Morales Signal Repairer Diabetes Education 04/25/23 Aubrey Jones MD [address] [address] Assigned Heart and Vascular Provider 05/07/23 documented as of this encounter
--- OUTSIDE RECORDS SUMMARY | 2023-08-03 10:01 | XMS_ITS | Encounter Summary ---
Author Name Unknown Organization [facility] Address [address] [place] [address]. [place] [address] Care Team Providers Care Loader Technician Name Role Phone Jovany Gonzalez MD Unavailable [phone] CrissyStaci jeong AIR/OCEAN EXPORT CLERK Unavailable [phone] Unavailable [phone] Roshni Nascimento RN Unavailable Unavailable Kiet Swain MD Unavailable [phone] Winsome Pike APRN RAIL CAR PAINTER/SANDBLASTER Unavailable [phone] Tori Hines [facility] Unavailable Miranda Queen [facility] Unavailable Unavailable Marisel Armando MD Unavailable Marisel Armando MD Unavailable Wesley Barrett MD Unavailable [phone] Dyan Fuentes MD Primary Care Provider [phone] Dyan Fuentes MD Unavailable [phone] Katiana Read MD Unavailable [phone] Meme Singleton PhD Unavailable [phone] Mary Del Cid AIR/OCEAN EXPORT CLERK Unavailable + [phone] Elham Stack [facility] Unavailable [phone] Mary Del Cid AIR/OCEAN EXPORT CLERK Unavailable [phone] Michelle Guzman DPM, Podiatry /Foot and Ankle Surgery Unavailable Reason for Visit * Reason Onset Date Comments Appointment 11/26/2022 Encounter Details Date Type Department Care Team (Late st Contact Info) Description 11/26/2022 Telephone [facility] [address] [place] [address] [place] [address] [place] [address] Appointment Social History Tobacco Use Types Packs/Day Years [...] often do you attend chur ch or amish services? 1 to 4 times per year 10/16/2021 Do you belong to any clubs o r organizations such as confucianist groups, unions, fraternal or athletic groups, or [...] Answer Date Recorded PHQ-2 Score 2 11/25/2022 [facility] - [...] encounter Miscellaneous Notes * Telephone Encounter - Laurita Fernandes RN - 11/26/2022 11:16 AM CDT Spoke with pt regarding message below. Pt can schedule them on my own. Number given for echo scheduling. Advised to call back with any questions or concerns. Laurita Jules RN * Telephone Encounter - Laurita Fernandes RN - 11/26/2022 11:02 AM CDT Images from the original note were not included. Dyan Fuentes MD P Lv Sb3/5 Marysol Epperson (Rn) Roshni Bright needs a follow up with Endocrinology - established with Jefe. She also needs an echo near future. We'll see how this looks and then potentially refer to cardiology - abn EKG. Can you help coordinate these please? documented in this encounter Plan of Treatment Upcoming Encounters Date Type Department Care Team (Late st Contact Info) Description 08/18/2023 3:00 PM DIRECTOR ON AIR Office Visit [facility] [address] [place] [address] Katiana Read MD [address] [place] [address] documented as of this encounter Visit Diagnoses Not on filedocumented in this encounter Additional Health Concerns Infection Onset Date Last Indicated Resolved Time C-difficile 10/15/2022 10/27/2022 11/26/2022 11:4 0 PM CDT Assessment Noted Time PHQ-9 Depression Total Score: 10 023 8:26 AM CDT documented as of this encounter Care Teams Loader Technician Relationship Specialty [place] [address] [place] [address] PCP - General Family Medicine 05/18/22 Jovany Gonzalez MD [facility] [address] [facility] [address] [place], [place] [address] Orthopedics 02/15/17 Staci Woodward, AIR/OCEAN EXPORT CLERK [place] [address] [place], [place] [address] Nurse Practitioner Nurse Practitioner Psych/Mental Health 05/10/17 Reanna Smith, RD [place] [address] [place], [place] [address] Clearing Tub Worker Dietitian, Registered 07/25/19 Roshni Nascimento, RN Personal Advocate & Liaison (PAL) Family Medicine 08/18/20 Kiet Swain MD [address] [place], [place] [address] [place], [place] [address] Referring Physician Psychiatry 09/19/20 Winsome Pike APRN RAIL CAR PAINTER/SANDBLASTER [address] [place] [address] Nurse Practitioner Psychiatry 09/19/20 Tori Hines, [facility] [place], [place] [address] Rubber Mold Maker Rubber Mold Maker - Clinical 09/19/20 Miranda Queen [facility] [address] [place] [address] Pharmacist Pharmacist 11/12/20 Marisel Armando MD [address] [place] [address] Gastroenterology 02/05/21 Marisel Armando MD [address] [place] [address] Assigned Gastroenterology Provider 03/08/21 12/24/22 Wesley Barrett MD [address] [place] [address] Assigned Neuroscience Provider 05/10/21 [place] [address] [place] [address] Assigned PCP 05/15/22 Katiana Read MD [address] [address] Assigned Endocrinology Provider 06/19/22 [place] [address] [place] [address] Assigned Behavioral Health Provider 07/03/22 12/31/22 [place] [address] [address] [address] Nurse Practitioner Nurse Practitioner 10/18/22 Elham Stack, [facility] [address] [place] [address] Pharmacist Pharmacist 10/19/22 [place] [address] [place] [place] [address] Assigned Pain Medication Provider 10/30/22 12/03/22 Michelle Guzman, ALDOM, Podiatry/Foot and Ankle Surgery [address] [place] [address] Assigned Musculoskeletal Provider 10/16/22 04/08/23 documented as of this encounter
--- OUTSIDE RECORDS SUMMARY | 2023-08-03 10:01 | XMS_ITS | Encounter Summary ---
Author Name Unknown Organization [facility] Address [address] [place] [address]. [place] [address] Care Team Providers Care Papeterie Table Assembler Name Role Phone Jovany Gonzalez MD Unavailable CrissyStaci jeong PRE K SPECIAL EDUCATION TEACHER Unavailable Reanna Smith RD Unavailable [phone] Roshni Nascimento RN Unavailable Unavailable Kiet Swain MD Unavailable [phone] Winsome Pike APRN SHELL MOLDING ROLLER BLAST OPERATOR Unavailable [phone] Tori Hines [facility] Unavailable Miranda Queen [facility] Unavailable Unavailable Marisel Armando MD Unavailable Marisel Armando MD Unavailable Wesley Barrett MD Unavailable [phone] Dyan Fuentes MD Primary Care Provider [phone] Dyan Fuentes MD Unavailable [phone] Katiana Read MD Unavailable [phone] Meme Singleton PhD Unavailable [phone] Mary Del Cid PRE K SPECIAL EDUCATION TEACHER Unavailable + [phone] [facility] Unavailable [phone] Mary Del Cid NP Unavailable [phone] Michelle GuzmanM, Podiatry /Foot and Ankle Surgery Unavailable Dyan Fuentes MD Unavailable [phone] Encounter Details Date Type Department Care Team (Late st Contact Info) Description 12/03/2022 MyC Medical Advice [address] [address] Torri Benites V, RN Social History Tobacco Use Types Packs/Day [...] you attend [facility] or evangelical services? 1 to 4 times per year [...] Answer Date Recorded PHQ-2 Score 2 11/25/2022 [facility] - Occupational Stress Questionnaire Answer [...] in a alf (including now)? No 10/16/2021 Education Answer Date [...] Telephone Encounter - Torri Benites RN - 12/20/2022 12:51 PM CDT LM for pt to c/b or to read StartSamplinghart message Letter sent * Telephone Encounter - Torri Benites RN - 12/16/2022 1:00 PM CDT LM for pt to c/b or to read mychart message in regards to below. * Telephone Encounter - Katiana Read MD - 12/13/2022 4:45 PM CDT Last visit July 2022. TSH levels are improving Recommend to be consistent with thyroid medication Continue current dose Repeat labs in 3 months. Please make a lab appointment for blood work and follow up clinic appointment in 1 week after that to discuss results. Please help schedule labs and follow-up appointment. Latest Ref Rng 11/25/2022 3:39 PM 12/03/2022 9:46 AM ENDO THYROID LABS-[facility] TSH 0.30 - 4.20 uIU/mL 96.00 (H) 22.03 (H) Free T3 2.0 - 4.4 pg/mL Triiodothyronine (T3) 60 - 181 ng/dL FREE T4 0.90 - 1.70 ng/dL 0.88 (L) 0.74 (L) Legend: (H) High (L) Low * Telephone Encounter - Torri Benites RN - 12/13/2022 10:21 AM CDT Per notes from hospital visit 12/11/22 hypothyroidism -Patient admits that she has not been taking her levothyroxine on schedule and therefore her planer stone has not adjusted her dose despite elevated TSH and low T4 with numbers slowly improving documented in this encounter Plan of Treatment Upcoming Encounters Date Type Department Care Team (Late st Contact Info) Description 08/18/2023 3:00 PM FRINGE MAKER Office Visit [facility] [address] [place] [phone] Katiana Read MD [address] [place], [place] [address] documented as of this encounter Visit Diagnoses Not on filedocumented in this encounter Additional Health Concerns Infection Onset Date Last Indicated Resolved Time Rule Out C-difficile 12/05/2022 12/05/2022 023 9:44 AM CDT Assessment Noted Time PHQ-9 Depression Total Score: 10 023 8:26 AM CDT documented as of this encounter Care Teams Papeterie Table Assembler Relationship Specialty [place] [address] [place] [address] PCP - General Family Medicine 05/18/22 Jovany Gonzalez MD [facility] [address] [facility] 605 [place], [place] [address] Orthopedics 02/15/17 Staci Woodward NP [facility] [facility] [address] [place], [place] [address] Nurse Practitioner Nurse Practitioner Psych/Mental Health 05/10/17 Reanna Smith, [facility] [place] [facility] [address] [place], [place] [address] Trailer Body Assembler Dietitian, Registered 07/25/19 Roshni Nascimento, RN Personal Advocate & Liaison (PAL) Family Medicine 08/18/20 Kiet Swain MD [address] [place] [address] [address] [place], [place] [address] Referring Physician Psychiatry 09/19/20 Winsome Pike APRN SHELL MOLDING ROLLER BLAST OPERATOR [facility] [address] [address] Nurse Practitioner Psychiatry 09/19/20 Tori Hines, [facility] [address] [place] [id number] Legal Word Processor Legal Word Processor - Clinical 09/19/20 [facility] [address] [place] [address] Pharmacist Pharmacist 11/12/20 Marisel Armando MD [address] [place] [id number] Gastroenterology 02/05/21 Marisel Armando MD [address] [place] [address]295 Assigned Gastroenterology Provider 03/08/21 12/24/22 Wesley Barrett MD [address] [place] [address] 96 [place], [place] [address] Assigned Neuroscience Provider 05/10/21 [place] [address] [place], [place] [address] Assigned PCP 05/15/22 Katiana Read MD [address] [facility] 200 [place] [address] Assigned Endocrinology Provider 06/19/22 [place] [address] [address] [place] [address] Assigned Behavioral Health Provider 07/03/22 12/31/22 Mary Del Cid, [place] [address] [place] [address] Nurse Practitioner Nurse Practitioner 10/18/22 Elham Stack, [facility] [address] [place] [address] Pharmacist Pharmacist 10/19/22 Mary Del Cid, PRE K SPECIAL EDUCATION TEACHER [address] [address] [place] [address] Assigned Pain Medication Provider 10/30/22 12/03/22 Michelle Guzman DPAlisha, Podiatry/Foot and Ankle Surgery [address] [place] [address] Assigned Musculoskeletal Provider 10/16/22 04/08/23 [place] [address] [place] [address] Assigned Pain Medication Provider 12/04/22 04/01/23 documented as of this encounter
--- OUTSIDE RECORDS SUMMARY | 2023-08-03 10:01 | XMS_ITS | Encounter Summary ---
Author Name Unknown Organization [facility] Address [address] [place] [address]. [place] [address] Care Team Providers Care Hand Spring Former Name Role Phone Jovany Gonzalez MD Unavailable [phone] CrissyStaci jeong COLLISION ESTIMATOR Unavailable [phone] Unavailable [phone] Roshni Nascimento RN Unavailable Unavailable Kiet Swain MD Unavailable [phone] Winsome Pike APRN BONE CHAR KILN OPERATOR Unavailable [phone] Tori Hines [facility] Unavailable Miranda Queen [facility] Unavailable Unavailable Marisel Armando MD Unavailable Marisel Armando MD Unavailable Wesley Barrett MD Unavailable [phone] Dyan Fuentes MD Primary Care Provider [phone] Dyan Fuentes MD Unavailable [phone] Katiana Read MD Unavailable [phone] Meme Singleton PhD Unavailable [phone] Mary Del Cid COLLISION ESTIMATOR Unavailable + [phone] Elham Stack [facility] Unavailable [phone] Mary Del Cid COLLISION ESTIMATOR Unavailable [phone] Michelle Guzman DPM, Podiatry /Foot and Ankle Surgery Unavailable Reason for Visit * Reason Onset Date Comments Panel Management 11/26/2022 Depression francia ssion Encounter Details Date Type Department Care Team (Late st Contact Info) Description 11/26/2022 Telephone [facility] [address] [place] [address] [place] [address] [place] [address] Panel Management (Depression remission) Social History Tobacco Use Types Packs/Day Years [...] often do you attend chur ch or denominational services? 1 to 4 times per year 10/16/2021 Do you belong to any clubs o r organizations such as zoroastrian groups, unions, fraternal or athletic groups, or [...] Answer Date Recorded PHQ-2 Score 2 11/25/2022 [facility] - Occupational Stress Questionnaire Answer Date Recorded [...] place to sleep or slept in a longterm (including now)? No 10/16/2021 Education Answer Date [...] encounter Miscellaneous Notes * Telephone Encounter - Lynda Oliver CMA - 11/26/2022 10:52 AM CDT Summary: Patient is due/failing the following: PHQ9 Reviewed: [] CARE EVERYWHERE [] LAST OV NOTE [] FYI TAB [] MYCHART ACTIVE? [] LAST PANEL ENCOUNTER [] FUTURE APPTS [] IMMUNIZATIONS [] Media Tab Action needed: Patient needs to do PHQ9. Type of outreach: Sent PlexPress message. Lynda Oliver/PATRICK [facility]---[facility] documented in this encounter Plan of Treatment Upcoming Encounters Date Type Department Care Team (Late st Contact Info) Description 08/18/2023 3:00 PM NURSE SPECIAL Office Visit [facility] [address] [place] [address] Katiana Read MD [address] [place] [address] documented as of this encounter Visit Diagnoses Not on filedocumented in this encounter Additional Health Concerns Infection Onset Date Last Indicated Resolved Time C-difficile 10/15/2022 10/27/2022 11/26/2022 11:4 0 PM CDT Assessment Noted Time PHQ-9 Depression Total Score: 10 023 8:26 AM CDT documented as of this encounter Care Teams Hand Spring Former Relationship Specialty [place] [address] [place] [address] PCP - General Family Medicine 05/18/22 Jovany Gonzalez MD [facility] [address] [facility] 605 [place], [place] [address] Orthopedics 02/15/17 Staci Woodward, COLLISION ESTIMATOR [place] [address] [place], [place] [phone] Nurse Practitioner Nurse Practitioner Psych/Mental Health 05/10/17 Reanna Smith, RD [place] [address] [place], [place] [address] Snow Removing Supervisor Dietitian, Registered 07/25/19 Roshni Nascimento, RN Personal Advocate & Liaison (PAL) Family Medicine 08/18/20 Kiet Swain MD [address] [place] [address] Referring Physician Psychiatry 09/19/20 Winsome Pike APRN BONE CHAR KILN OPERATOR [address] [place] [address]134 Nurse Practitioner Psychiatry 09/19/20 Tori Hines, [facility] [address] [place] [address] Mortgage Loan Coordinator Mortgage Loan Coordinator - Clinical 09/19/20 Miranda Queen [facility] [address] [place] [address] Pharmacist Pharmacist 11/12/20 Marisel Armando MD 9 [place], [place] [address] Gastroenterology 02/05/21 Marisel Armando MD [address] [place] [address] Assigned Gastroenterology Provider 03/08/21 12/24/22 Wesley Barrett MD [address] [facility] 96 [place] [address] Assigned Neuroscience Provider 05/10/21 [place] [address] [place] [address] Assigned PCP 05/15/22 Katiana Read MD [address] [place], [place] [address] Assigned Endocrinology Provider 06/19/22 Meme [place] [address] [place] [address] Assigned Behavioral Health Provider 07/03/22 12/31/22 Mary Del Cid, [place] [address] [place] [address] Nurse Practitioner Nurse Practitioner 10/18/22 Elham Stack, [facility] [address] [place] [address] Pharmacist Pharmacist 10/19/22 Mary Del Cid, [place] [address] [address] Assigned Pain Medication Provider 10/30/22 12/03/22 Michelle Guzman DPM, Podiatry/Foot and Ankle Surgery [address] [address] Assigned Musculoskeletal Provider 10/16/22 04/08/23 documented as of this encounter
--- OUTSIDE RECORDS SUMMARY | 2023-08-03 10:02 | XMS_ITS | Encounter Summary ---
Author Name Unknown Organization [facility] Address [address] [place] [address]. [place] [address] Care Team Providers Care Rn Digestive Name Role Phone Jovany Gonzalez MD Unavailable CrissyStaci jeong REPAIRER WOOD FURNITURE Unavailable [phone] Unavailable Roshni Nascimento RN Unavailable Unavailable Kiet Swain MD Unavailable [phone] Winsome Pike APRN POLE FRAME CONSTRUCTION WORKER Unavailable [phone] Tori Hines [facility] Unavailable Miranda Queen [facility] Unavailable Unavailable Marisel Armando MD Unavailable Marisel Armando MD Unavailable Wesley Barrett MD Unavailable [phone] Dyan Fuentes MD Primary Care Provider [phone] Dyan Fuentes MD Unavailable [phone] Katiana Read MD Unavailable [phone] Meme Singleton PhD Unavailable [phone] Mary Del Cid REPAIRER WOOD FURNITURE Unavailable [phone] Elham Stack [facility] Unavailable [phone] Emerita Potter POST HOLE DIGGER Unavailable Mary Del Cid NP Unavailable [phone] Michelle Guzman DPM, Podiatry /Foot and Ankle Surgery Unavailable Reason for Visit * Reason Onset Date Comments Outreach 11/02/2022 PAL IP follow up Encounter Details Date Type Department Care Team (Late st Contact Info) Description 11/02/2022 Telephone [facility] [address] [place] [address] [place] [address] [place] [address] Outreach (PAL IP follow up ) Social History Tobacco Use [...] How often do you attend chur or orthodoxy services? 1 to 4 times per year 10/16/2021 Do you belong to any clubs o r organizations such as nondenominational groups, unions, fraternal or athletic groups, or [...] PHQ-2 Answer Date Recorded PHQ-2 Score 2 10/25/2022 [facility] - Occupational Stress Questionnaire Answer [...] suspected to have Coronavirus/COVID-19? No / Unsure 10/26/2022 8:32 AM CDT documented as of this encounter Miscellaneous Notes * Telephone Encounter - Roshni Nascimento RN - 11/05/2022 9:24 AM CDT LM for call back to schedule IP follow up Roshni Nascimento RN * Telephone Encounter - Roshni Nascimento RN - 11/04/2022 11:09 AM CDT LM for call back and my chart sent Roshni Nascimento RN * Telephone Encounter - Roshni Nascimento RN - 11/02/2022 2:22 PM CDT LM for call back - IP check in and needs follow up visit with PCP Follow up with primary care provider, Dyan Fuentes, within 7 days for hospital follow- up. Enteric testing is pending at discharge (bacterial stool infection) will call you Follow-up with GI for biopsy results Roshni Nascimento RN documented in this encounter Plan of Treatment Upcoming Encounters Date Type Department Care Team (Late st Contact Info) Description 08/18/2023 3:00 PM PLATING TANK OPERATOR APPRENTICE Office Visit [facility] [address] [place] [address] Katiana Raed MD [address] [place] [address] documented as of this encounter Visit Diagnoses Not on filedocumented in this encounter Additional Health Concerns Infection Onset Date Last Indicated Resolved Time C-difficile 10/15/2022 10/27/2022 11/26/2022 11:4 0 PM CDT Assessment Noted Time PHQ-9 Depression Total Score: 10 10/25/ 023 2:06 PM CDT documented as of this encounter Care Teams Rn Digestive Relationship Specialty Start [place] [address] [place] [address] PCP - General Family Medicine 05/18/22 Jovany Gonzalez MD [facility] [address] [facility] [address] [place] [address] Orthopedics 02/15/17 Staci Woodward, REPAIRER WOOD FURNITURE [place] [address] [place] [place], [place] [address] Nurse Practitioner Nurse Practitioner Psych/Mental Health 05/10/17 Reanna Smith, RD [place] [address] [place] [place], [place] [address] University Registrar Dietitian, Registered 07/25/19 Roshni Nascimento, RN Personal Advocate & Liaison (PAL) Family Medicine 08/18/20 Kiet Swain MD [address] [facility] [address] [place], [place] [address] Referring Physician Psychiatry 09/19/20 Winsome Pike APRN POLE FRAME CONSTRUCTION WORKER [address] [place], [place] [address] Nurse Practitioner Psychiatry 09/19/20 Tori Hines, [facility] [address] [place], [place] [address] Fraud Investigator Fraud Investigator - Clinical 09/19/20 RichardcoriMiranda scott [facility] [address] [place] [address] Pharmacist Pharmacist 11/12/20 Marisel Armando MD [address] [place] [address] Gastroenterology 02/05/21 Marisel Armando MD [address] [place] [address] Assigned Gastroenterology Provider 03/08/21 12/24/22 Wesley Barrett MD [address] [place] [address] 96 [place] [address] Assigned Neuroscience Provider 05/10/21 [place] [address] [place] [address] Assigned PCP 05/15/22 Katiana Read MD [address] [address] Assigned Endocrinology Provider 06/19/22 Meme Singleton, PhD [address] [facility] [place] 469447 Assigned Behavioral Health Provider 07/03/22 12/31/22 Mary Del Cid, [place] [address] 355017 Nurse Practitioner Nurse Practitioner 10/18/22 Elham Stack, [facility] [address] [facility] [place] [address] Pharmacist Pharmacist 10/19/22 Emerita Potter, [facility] Clinic Electric Power Superintendent Fraud Investigator - Clinical 10/29/22 11/02/22 [place] [address] [place] [address] Assigned Pain Medication Provider 10/30/22 12/03/22 Michelle Guzman, DPM, Podiatry/Foot and Ankle Surgery [address] 22[address] Assigned Musculoskeletal Provider 10/16/22 04/08/23 documented as of this encounter
--- OUTSIDE RECORDS SUMMARY | 2023-08-03 10:02 | XMS_ITS | Encounter Summary ---
Author Name Unknown Organization [facility] Address [address] [place] [address]. [place] [address] Care Team Providers Care Utility Bill Complaints Investigator Name Role Phone Jovany Gonzalez MD Unavailable CrissyStaci jeong CLOSET BUILDER Unavailable [phone] Unavailable [phone] Roshni Nascimento RN Unavailable Unavailable Kiet Swain MD Unavailable [phone] Winsome Pike APRN EPIC PROFESSIONAL Unavailable [phone] Tori Hines [facility] Unavailable Miranda Queen [facility] Unavailable Unavailable Marisel Armando MD Unavailable Marisel Armando MD Unavailable Wesley Barrett MD Unavailable [phone] Dyan Fuentes MD Primary Care Provider [phone] Dyan Fuentes MD Unavailable [phone] Katiana Read MD Unavailable [phone] Meme Singleton PhD Unavailable [phone] Mary Del Cid CLOSET BUILDER Unavailable + [phone] Elham Stack [facility] Unavailable [phone] Mary Del Cid CLOSET BUILDER Unavailable [phone] Michelle Guzman DPM, Podiatry /Foot and Ankle Surgery Unavailable Encounter Details Date Type Department Care Team (Latest Contact Info) Description 11/11/2022 Travel Social History Tobacco Use Types Packs/Day [...] How often do you attend [facility] or uatsdin services? 1 to 4 times per year 10/16/2021 Do you belong to any clubs o r organizations such as pentecostalism groups, unions, fraternal or athletic groups, or [...] Answer Date Recorded PHQ-2 Score 2 10/25/2022 [facility] [place] [facility] Occupat [facility] - Occupational Stress [...] suspected to have Coronavirus/COVID-19? No / Unsure 11/11/2022 8:56 AM CDT documented as of this encounter Plan of Treatment Upcoming Encounters Date Type Department Care Team (Late st Contact Info) Description 08/18/2023 3:00 PM SPORTS PHYSIOTHERAPIST Office Visit [facility] [address] [place] [address] Katiana Read MD [address] [place] [address] documented as of this encounter Visit Diagnoses Not on filedocumented in this encounter Additional Health Concerns Infection Onset Date Last Indicated Resolved Time C-difficile 10/15/2022 10/27/2022 11/26/2022 11:4 0 PM CDT Assessment Noted Time PHQ-9 Depression Total Score: 10 023 2:06 PM CDT documented as of this encounter Care Teams Utility Bill Complaints Investigator Relationship Specialty [place] [address] [place] [address] PCP - General Family Medicine 05/18/22 Jovany Gonzalez MD [facility] [address] [facility] [address] [place], [place] [address] Orthopedics 02/15/17 Staci Woodward CLOSET BUILDER [place] [address] [place] [address] Nurse Practitioner Nurse Practitioner Psych/Mental Health 05/10/17 Reanna Smith, RD [place] [address] [place] [address] Ballaster Dietitian, Registered 07/25/19 Roshni Nascimento, RN Personal Advocate & Liaison (PAL) Family Medicine 08/18/20 Kiet Swain MD [facility]0 [facility]15 [place] [address] Referring Physician Psychiatry 09/19/20 Winsome Pike APRN EPIC PROFESSIONAL [address] [address] Nurse Practitioner Psychiatry 09/19/20 Tori Hines, [facility] [address] [place], [place] [address] Mixer Slagman Mixer Slagman - Clinical 09/19/20 Miranda Queen [facility] [address] [place] [address] Pharmacist Pharmacist 11/12/20 Marisel Armando MD [address] [place], [place] [address] Gastroenterology 02/05/21 Marisel Armando MD [address] [place] [place] [address]855 Assigned Gastroenterology Provider 03/08/21 12/24/22 Wesley Barrett MD 420 [facility] 96 [place], [place] [address] Assigned Neuroscience Provider 05/10/21 [place] [address] [place] [address] Assigned PCP 05/15/22 Katiana Read MD [address] [address] Assigned Endocrinology Provider 06/19/22 [place] [address] [place] [address] Assigned Behavioral Health Provider 07/03/22 12/31/22 Mary Del Cid, RAFAEL [address] [address] Nurse Practitioner Nurse Practitioner 10/18/22 Elham Stack, [facility] [address] [place] [address] Pharmacist Pharmacist 10/19/22 Mary Del Cid, RAFAEL [address] [address] [place] [address] Assigned Pain Medication Provider 10/30/22 12/03/22 Michelle Guzman DPM, Podiatry/Foot and Ankle Surgery [address] [address] [address] Assigned Musculoskeletal Provider 10/16/22 04/08/23 documented as of this encounter
--- OUTSIDE RECORDS SUMMARY | 2023-08-03 10:02 | XMS_ITS | Encounter Summary ---
Author Name Unknown Organization [facility] Address [address] [place] [address]. [place] [address] Care Team Providers Care Perioperative Assistant Name Role Phone Jovany Gonzalez MD Unavailable CrissyStaci jeong SALES ORDER CLERK Unavailable [phone] Unavailable Roshni Nascimento RN Unavailable Unavailable Kiet Swain MD Unavailable [phone] Winsome Pike APRN PSYCHIATRIC TECH Unavailable [phone] Tori Hines [facility] Unavailable Miranda Queen [facility] Unavailable Unavailable Marisel Armando MD Unavailable Marisel Armando MD Unavailable Wesley Barrett MD Unavailable [phone] Dyan Fuentes MD Primary Care Provider [phone] Dyan Fuentes MD Unavailable [phone] Katiana Read MD Unavailable [phone] Meme Singleton PhD Unavailable [phone] Mary Del Cid SALES ORDER CLERK Unavailable [phone] Elham Stack [facility] Unavailable [phone] Mary Del Cid SALES ORDER CLERK Unavailable [phone] Michelle Guzman DPM, Podiatry /Foot and Ankle Surgery Unavailable Reason for Visit * Reason Comments Pain Encounter Details Date Type Department Care Team (Late st Contact Info) Description 11/11/2022 9:00 AM CDT Office Visit [facility] [place] [id number] [place] [address] [address] [place] [address] Mary Del Cid, RAFAEL [address] [place] [address] Chronic pain syndrome (Primary Dx); Encounter for long-term opiate analgesic use; At risk for substance overdose; Muscle spasm Social History Tobacco Use Types [...] often do you attend chur ch or religion services? 1 to 4 times per year [...] Answer Date Recorded PHQ-2 Score 2 10/25/2022 [facility] - Occupational Stress Questionnaire Answer [...] place to sleep or slept in a assisted (including now)? No 10/16/2021 Education Answer Date [...] Sign Reading Time Taken Comments Blood Pressure 160/106 11/11/2022 9:04 AM CDT Pulse 106 11/11/2022 9:04 AM CDT Temperature - - Respiratory Rate - - Oxygen Saturation 98% 11/11/2022 9:04 AM CDT Inhaled Oxygen Concentration - - Weight - - Height - - Body Mass Index - - documented in this encounter Patient Instructions * Patient Instructions* Leeann Echevarria MA - 11/11/2022 9:00 AM CDT Clinic Number: [phone] Call with any questions about your care and for scheduling assistance. Calls are returned Tuesday through Tuesday between 8 AM and 4:30 PM. We usually get back to you within 2 business days depending on the issue/request. If we are prescribing your medications: For opioid medication refills, call the clinic or send a nfon message 7 days in advance. Please include: Name of requested medication Name of the pharmacy. For non-opioid medications, call your pharmacy directly to request a refill. Please allow 3-4 days to be processed. Per [place] State Law: All controlled substance prescriptions must [...] Notes * Mary Del Cid NP - 11/11/2022 9:00 AM CDT Images from the original note were not included. [facility] Management Date of Visit: 11/11/2022 Last visit: 07/15/2022 Original Consult: 12/09/2020 (Greg) Reason for visit: Follow-up: Kaila Pineda Rob Hernandez is a 61 year old female with PMH significant for sleep apnea, ??hyperlipidemia, hypothyroidism, nephrolithiasis, GERD, diabetic neuropathy, recurrent pancreatitis, ANTHONY and with chronic pain of??neck, back, and right hip pain who is seen today for ongoing managementof chronic pain. History: 1. Neck pain- etiology likely related to cervical spondylosis, combination of foraminal stenosis and facet arthropathy, s/p C3-5 fusion. 2. Back pain- likely related to multilevel degenerative changes, radicular pain in L5-S1 dermatome but most significant central stenosis at L2-3, significant multilevel facet arthropathy as well, s/pL5-S1 hemilaminectomy 3. Right hip pain- hx of avascular necrosis, s/p hip replacement with Dr. Mayo on 08/06/2020 and right hip irrigation, debridement, and evacuation of hematoma with Dr. Mayo on 08/20/2020 at [facility].?? 4. Mental Health - the patient's mental health concerns, specifically??ANTHONY, affect her experience of pain and contribute to her clinically significant distress. Since last seen, Kaila reports: - TSH level is better, now 47, down from 290. Fatigue, constipation, sleepiness have improved. 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 When hospitalized, noted to have had a heart attack when visualized on CT scan. Planning follow-up with cardiology and PCP soon. - Will be going through a Smoking cessation program, starts next week. Hopeful that she will be successful. - Lower back is feeling about the same, so is her neck. Buprenorphine has been working well. Typically takes it as needed, not at specific times, always three times per day along with Robaxin 1000 mgTID prn. Uses 1-2 vapes of medical cannabis per day with good control of symptoms. Has #58 films left of her suboxone 2/0.5 mg today, on track. - Is not sure about doing PT, wants to check with cardiology. Was unable to do PT due to health issues previously. - Has neurogenetic bladder and self caths, thinks she may be unable to provide urine sample today. - She continues visits with therapist at [facility], has found this helpful and feels that this is the best she has ever felt. Pain description: Location: neck and lower back [...] feeling stoned Other relevant medications: Pristiq 100mg daily- H for mood Seroquel 100mg at bedtime and 25mg TID prn Clonazepam 0.5mg BID prn- H, was at 2mg QID, daily at her dose Review of [place] Prescription Monitoring Program (SHOE STOCK ASSOCIATE): No concern for abuse or misuse of controlled medications based on this report. Viewed on 11/11/2022 Controlled medications (buprenorphine) are being prescribed by me Controlled medications (clonazepam) are being prescribed by: [place] Current calculated MME: N/A CSA last updated: 11/11/2022 UDS last updated: 11/11/2022 PAIN MANAGEMENT TREATMENT HISTORY 1. MEDICATIONS: Opiates: [...] option due to kidney stones Topicals: lidocaine patches?? Adjuvant pain medications: medical cannabis- helps 2. PHYSICAL THERAPY: yes various times - Somewhat helpful; none in the past 5 years 3. PAIN PSYCHOLOGY: yes with Dr. Benites several years ago -helpful, currently treating with [facility] 4. SURGERY: lumbar laminectomy L4-S1 with Dr. Barrett on 11/10/2021 C5-[address] Barrett on 05/18/2021?? hip replacement with Dr. Mayo on 08/06/2020 and right hip irrigation, debridement, and evacuation of hematoma with Dr. Mayo on 08/20/2020 at [facility] cervical fusion 2003 L5-S1 hemilaminectomy 2004 5. [...] moderate left foraminal stenosis. C5-C6: (Fused level) ??No spinal canal stenosis. No foraminal stenosis on either side. C6-C7: (Fused level) No spinal canal stenosis. No foraminal stenosis on either side. C7-T1: Normal disc height and contour. Mild facet arthropathy bilaterally. No spinal canal stenosis. No foraminal stenosis on either side. ? IMPRESSION: Postoperative and degenerative change of the cervical spine as detailed above. Moderatedegenerative neural foraminal stenosis on the left C4- C5. No other significant spinal canal or neural foraminal narrowing of the cervical spine. ?? 04/08/2021 MRI of thoracic spine FINDINGS: There [...] significant canal compromise or neural foraminal narrowing noted??throughout the thoracic region. The lungs visualized on this study are clear. The paraspinal soft tissues are unremarkable .? IMPRESSION: 1. ??Good anatomic alignment and vertebral body heights maintained. 2. ??No abnormal signal thoracic spinal cord. 3. ??No significant canal compromise or neural foraminal narrowing throughout thoracic spine. ?? 07/03/2021 MRI of lumbar spine T12-L1: Loss [...] foraminal narrowing. No change from the comparison study.?? L2-L3: Loss of disc height, disc desiccation [...] foraminal narrowing. No change from the comparison study.?? L4-L5: Loss of disc height, disc desiccation [...] spinal canal narrowing. Mild-moderate bilateral neural foraminal stenosis.? IMPRESSION: 1. Diffuse degenerative change of the lumbar spine as detailed above without appreciable change from the comparison study. 2. Mild to moderate neural foraminal stenosis on the right at L4-L5 and bilaterally at L5-S1. 3. No other significant spinal canal or neural foraminal stenosis of the lumbar spine. Social History: Social History Tobacco Use ??? Smoking status: Every Day Packs/day: 1.00 Years: 50.00 Pack years: 50.00 Types: Cigarettes ??? Smokeless tobacco: Never ??? Tobacco comments: down to 4 cigs per day. Quitting 10/04/21 Vaping Use ??? Vaping status: Every Day Substances: CBD Substance Use Topics ??? Alcohol use: Not Currently ??? Drug use: No Comment: marijuana in high school Social History Social History Narrative , 4 children, lives at home with , does not work outside the home. Children are 40, 39, 38, 37, still very involved in her children's lives. One son lives in [place], others are local. One son (disabled from [employer]) and his live with her. 5 grandchildren, 18 (boy), 16 (girl) and 3 are 5 (twin girls + girl who is three days apart from the twins). For fun, enjoys video games, crossword puzzles, being on [employer]. Last updated 11/11/2022 Medications and Allergies reviewed. OBJECTIVE Vitals: 11/11/22 0904 BP: (!) 160/106 Pulse: 106 SpO2: 98% Constitutional: Well developed, well nourished, appears stated [...] to follow commands without difficulty. Musculoskeletal exam: Cervical spine: Decreased extension, flexion, lateral bending and lateral rotation. Painfree ROM Lumbar spine: mildly restricted ROM CN: Cranial nerves 2-12 are grossly intact Motor: 5/5 UE strength normal except for right elbow flexion and extension were -5/5 5/5 strength in BLE ankle dorsiflexion and plantarflexion. Reflexes: absent Sensory: Light touch: normal bilateral upper and lower extremities ASSESSMENT AND PLAN: 1. Chronic pain syndrome Continue current medications. Refills provided for next three months. Follow up in 3 months, can bevirtual or in person. Recommend PT refresher course, okay to check with maintenance engineer oil field first. - buprenorphine HCl-naloxone HCl (SUBOXONE) 2-0.5 MG per film; Place 1 Film under the tongue 3 times daily OK to fill 11/27/22 start 11/29/22. May refill every 30 days. Dispense: 90 Film; Refill: 2 2. Encounter for long-term opiate analgesic use Updated CSA, serum drug screen with next blood draw. - Drug Screen 9, Ser/Jaime w/ Rflx to Conf; Future 3. At risk for substance overdose Current rx for naltrexone was from 2017, send new prescription in to be filled. - naloxone (NARCAN) 4 MG/0.1ML nasal spray; [place] 1 spray (4 mg) into one nostril alternating nostrils once as needed for opioid reversal Dispense: 0.2 mL; Refill: 0 4. Muscle spasm Continue, refilled. - methocarbamol (ROBAXIN) 500 MG tablet; Take 2 tablets (1,000 mg) by mouth 4 times daily Dispense:150 tablet; Refill: 2 Mary Del Cid, PSYCHIATRIC TECH-BC, PMGT-BC, AP-PMN [facility] documented in this encounter Nursing Notes * Leeann Echevarria MA - 11/11/2022 9:00 AM CDT 04/13/2022 1:54 PM 07/15/2022 2:00 PM 11/11/2022 9:04 AM PEG Score PEG Total Score 7.33 6 7.33 Leeann Echevarria MA [facility] * Leeann Echevarria MA - 11/11/2022 9:00 AM CDT Reviewed controlled substance agreement with patient and the patient stated understanding. Patient signed agreement and a copy was given to the patient. Leeann Echevarria MA [facility] documented in this encounter Plan of Treatment Upcoming Encounters Date Type Department Care Team (Late st Contact Info) Description 08/18/2023 3:00 PM RAILCAR CARPENTER Office Visit [facility] [address] [place] [address] Katiana Read MD [address] [place] [address] documented as of this encounter Results * Drug Screen 9, Ser/Jaime w/ Rflx to Conf (11/25/2022 3:39 PM CDT) [facility] Amphetamines Qual Negative Cutoff 20 ng/mL 11/27/2022 6:47 PM CDT [facility] Bartiburates Qual Negative Cutoff 50 ng/mL 11/27/2022 6:47 PM CDT [facility] Benzodiazepines Qual Negative Cutoff 50 ng/mL 11/27/2022 6:47 PM CDT [facility] Buprenorphine Qual Positive Cutoff 1 ng/mL 11/27/2022 6:47 PM CDT [facility] Comment: If the screen is positive, then confirmation by mass spectrometry will be added. Additional charges will apply. Unconfirmed positive may be useful for medical purposes, but does not meet forensic standards. Cocaine Qual Negative Cutoff 20 ng/mL 11/27/2022 6:47 PM CDT [facility] Methadone Qual Negative Cutoff 25 ng/mL 11/27/2022 6:47 PM CDT [facility] Opiates Qual Negative Cutoff 20 ng/mL 11/27/2022 6:47 PM CDT [facility] Oxycodone Qual Negative Cutoff 20 ng/mL 11/27/2022 6:47 PM CDT [facility] Phencyclidine Qual Negative Cutoff 10 ng/mL 11/27/2022 6:47 PM CDT [facility] Methamphetamine Qual Negative Cutoff 20 ng/mL 11/27/2022 6:47 PM CDT [facility] Drug Screen Comments, Serum or Plasma See Note 11/27/2022 6:47 PM CDT [facility] Comment: INTERPRETIVE INFORMATION: Drug Screen 9 Panel, Serum or ?Plasma - Immunoassay Screen with ?Reflex to Mass Spectrometry ?Confirmation/Quantitation 1. Methodology: Qualitative Immunoassay Screen 2. Drugs/Drug classes reported as Positive are automatically reflexed to mass spectrometry confirmation/quantitation testing. ??An immunoassay unconfirmed positive screen result may be useful for medical purposes but does not meet forensic standards. 3. The absence of expected drug(s) and/or drug metabolite(s) may indicate noncompliance, inappropriate timing of specimen collection relative to drug administration, poor drug absorption, or limitations of testing. The concentration at which the screening test can detect a drug or metabolite varies within a drug class. Specimens for which drugs or drug classes are detected by the screen are automatically reflexed to a second, more specific technology (mass spectrometry). The concentration value must be greater than or equal to the cutoff to be reported as positive. Interpretive questions should be directed to the laboratory. 4. For medical purposes only; not valid for forensic use. This test was developed and its performance characteristics determined by [facility]. It has not been cleared or approved by the [place] Food and Drug Administration. This test was performed in a CLIA certified laboratory and is intended for clinical purposes. Performed By: [facility] [address] [place] [id number] Book Cutter: [place] MD, PhD Cannabinoids Qual Positive Cutoff 20 ng/mL 11/27/2022 6:47 PM T [facility] Comment: If the screen is positive, then confirmation by mass spectrometry will be added. Additional charges will apply. Unconfirmed positive may be useful for medical purposes, but does not meet forensic standards. Blood BLOOD SPECIMEN / Unknown Venipuncture / Unknown 11/25/2022 3:39 PM CDT 11/25/2022 3:39 PM CDT Mary Del Cid SALES ORDER CLERK LAB - BLOOD MICHEALJocelyn RAMONMARK [facility] [address] [place] [address], [facility] [phone] documented in this encounter Visit Diagnoses Diagnosis Chronic pain syndrome- Primary Encounter for long-term opiate analgesic use Encounter for long-term (current) use of other medications At risk for substance overdose Muscle spasm Spasm of muscle documented in this encounter Additional Health Concerns Infection Onset Date Last Indicated Resolved Time C-difficile 10/15/2022 10/27/2022 11/26/2022 11:4 0 PM CDT Assessment Noted Time PHQ-9 Depression Total Score: 10 023 2:06 PM CDT documented as of this encounter Care Teams Perioperative Assistant Relationship Specialty [place] [address] [place] [address] PCP - General Family Medicine 05/18/22 Jovany Gonzalez MD [facility] [address] [place], [place] [address] Orthopedics 02/15/17 Staci Woodward NP [place] [address] [place], [place] [address] Nurse Practitioner Nurse Practitioner Psych/Mental Health 05/10/17 Reanna Smith, LAURA [facility] [address] [place], [place] [address] Chemical Strength Tester Dietitian, Registered 07/25/19 Roshni Nascimento RN Personal Advocate & Liaison (PAL) Family Medicine 08/18/20 Kiet Swain MD [address] [facility] [address] [place] [address] Referring Physician Psychiatry 09/19/20 Winsome Pike APRN CNP [address] [place] [address] Nurse Practitioner Psychiatry 09/19/20 Tori Hines, [facility] [address] [place] [address] Tire Assembler Tire Assembler - Clinical 09/19/20 Miranda Queen [facility] [address] [place] [address] Pharmacist Pharmacist 11/12/20 Marisel Armando MD [address] [place] [address] 156665 Gastroenterology 02/05/21 Marisel Armando MD [address] [place] [address] 675535 Assigned Gastroenterology Provider 03/08/21 12/24/22 Wesley Barrett MD [address] [place] [address] [address] [place], [place] [address] Assigned Neuroscience Provider 05/10/21 [place] [address] [place] [address] Assigned PCP 05/15/22 Katiana Read MD [address] [place] [address] Assigned Endocrinology Provider 06/19/22 [place] [address] [place] [address] Assigned Behavioral Health Provider 07/03/22 12/31/22 Mary Del Cid, RAFAEL [address] [place] [address] Nurse Practitioner Nurse Practitioner 10/18/22 Elham Stack, [facility] [address] [facility] [place] [address] Pharmacist Pharmacist 10/19/22 Mary Del Cid, RAFA[place] [address] [place] [address] Assigned Pain Medication Provider 10/30/22 12/03/22 Michelle Guzman DPM, Podiatry/Foot and Ankle Surgery [address] [facility] [place] [address] Assigned Musculoskeletal Provider 10/16/22 04/08/23 documented as of this encounter
--- OUTSIDE RECORDS SUMMARY | 2023-08-03 10:02 | XMS_ITS | Encounter Summary ---
Author Name Unknown Organization [place] Address [address] [place] [address]. [place] [address] Care Team Providers Care Candy Polisher Name Role Phone Jovany Gonzalez MD Unavailable CrissyStaci jeong NP Unavailable [phone] Unavailable Roshni Nascimento RN Unavailable Unavailable Kiet Swain MD Unavailable [phone] Winsome Pike APRN FUEL QUALITY TECH Unavailable [phone] Tori HinesSW Unavailable Miranda Queen [facility] Unavailable Unavailable Marisel Armando MD Unavailable Marisel Armando MD Unavailable Wesley Barrett MD Unavailable [phone] Dyan Fuentes MD Primary Care Provider [phone] Dyan Fuentes MD Unavailable [phone] Katiana Read MD Unavailable [phone] Meme Singleton PhD Unavailable [phone] Deena Garza RECORDING STUDIO INTERNSHIP FUEL QUALITY TECH Unavailable [phone] Mary Del Cid TEAM CDL DRIVER Unavailable [phone] Elham Stack [facility] Unavailable [phone] ThomasMichelle DPM, Podiatry /Foot and Ankle Surgery Unavailable Reason for Visit * Auth/Cert (Routine) Specialty Diagnoses / Procedures Referred By Jose R kelly Referred To Contact Med Surg Diagnoses Dehydration Nausea and vomiting, unspecified vomiting type Nausea and vomiting, unspecified vomiting type Observation Dept [address] [place] [address] Referral ID Status Reason Start Date Expiration Date Visits Re quested Visits Authorized [id number] 1 1 Encounter Details Date Type Department Care Team (Late st Contact Info) Description 10/28/2022 11:32 AM CDT Anesthesia Event [facility] [address] [place] [address] Dougals Lechuga MD [facility] ANESTHESIA [address] [place] [address] Lenka Fan APRN PROSPECTING OBSERVER [address] [place] [address] Anesthesia Record Procedure Summary Procedure Name Responsible Anesthesiologist Anesthesia Start Time Anesthesia Stop Time COLONOSCOPY with biopsies (Rectum) Douglas Lechuga MD 10/28/22 1132 10/28/22 1206 Events Date Time Event Comment 10/28/2022 1110 PROSPECTING OBSERVER Ready for Procedure 1132 An Start 1132 MD Present 1134 An Start Data 1134 AN REASSESS I attest that I have identified and re-evaluated the patient immediately before the induction of anesthesia and I am satisfied that the anesthetic plan is suitable for the patient's condition and procedure. The first vital signs recorded are pre- induction. Lenka Fan APRN PROSPECTING OBSERVER 1134 Anesthesia Ready for Procedu re 1203 an stop data 1206 An Stop Electronically signed by Lenka Fan APRN CRNA on October 28, 2022 12:08 PM 1206 Present Meds Name Total midazolam 1 mg/mL 2 mg propofol drip mcg/kg/min 265.25 mg lactated ringers infusion 0 mL * Agents Name NO HELIOX O2 N2O Air Exp Sevoflurane Exp Isoflurane Exp Desflurane Exp N2O Ins Sevoflurane Ins Isoflurane Ins Desflurane O2 Auxiliary * Blood No blood administrations on file. Lines, Drains, and Airways Type Details Placement Removal Incision/Surgical Site 05/18/21; 904; R ight; Neck 05/18/21904 by Kira Weber RN Incision/Surgical Site 11/10/21; 1002; Midline; Back; Sutures, isatu, adaptix, 4x4, medipore tape 11/10/21 1002 by Sherman Faustin RN Incision/Surgical Site 10/28/22; 1113; Rectum 1113 by Lenka Lang RN Peripheral IV 10/26/22; 1833; 20 G ; BD; Left, Posterior; Lower forearm; 1; Tolerated well 10/26/22 183 by Justin Alegria RN 10/28/22 1459 by Cortney Gonzalez RN documented in this encounter Social History Tobacco Use Types Packs/Day Years [...] [facility]? 1 to 4 times per year 10/16/2021 Do you belong to any clubs o r organizations such as jain groups, unions, fraternal or athletic groups, or [...] Answer Date Recorded PHQ-2 Score 2 10/25/2022 [facility] - Occupational Stress Questionnaire Answer Date Recorded [...] AM CDT documented as of this encounter OR Notes * Anesthesia Postprocedure Evaluation - Douglas Lechuga MD - 10/28/2022 12:30 PM CDT Patient: Kaila Hernandez Procedure: Procedure(s): COLONOSCOPY with biopsies Anesthesia Type: No value filed. Note: Postop Pain Control: Uneventful Sign Out: Well controlled pain PONV: No Neuro/Psych: Uneventful Sign Out: Acceptable/Baseline neuro status Airway/Respiratory: Uneventful Sign Out: Acceptable/Baseline resp. status CV/Hemodynamics: Uneventful Sign Out: Acceptable CV status Other NRE: NONE DID A NON-ROUTINE EVENT OCCUR? No Last vitals: Vitals Value Taken Time BP 120/66 10/28/22 1220 Temp 97.8 ??F (36.6 ??C) 10/28/22 1205 Pulse 67 10/28/22 1220 Resp 16 10/28/22 1205 SpO2 98 % 10/28/22 1228 Vitals shown include unvalidated device data. Electronically Signed By: Douglas Lechuga MD October 28, 2022 12:30 PM * Anesthesia Preprocedure Evaluation - Douglas Lechuga MD - 10/28/2022 11:28 AM CDT Anesthesia Pre-Procedure Evaluation Patient: Kaila Hernandez : 1960 Procedure : Procedure(s): COLONOSCOPY with biopsies Past Medical History: Diagnosis Date ??? Anemia [...] deficiency ??? Vitamin D deficiency Past Surgical History: Procedure Laterality Date ??? APPENDECTOMY OPEN ??? ARTHROPLASTY HIP Right 08/06/2020 Procedure: Right total hip arthroplasty; Surgeon: Lencho Mayo MD; Location: [facility] OR ??? ARTHROSCOPY ANKLE Right 12/13/2017 Procedure: RIGHT ANKLE ARTHROSCOPY; Surgeon: Jovany Gonzalez MD; Location: [facility];Service: ??? BACK SURGERY Lumbar and cervical ??? CARDIAC CATHETERIZATION ??? COLONOSCOPY N/A 10/20/2015 Procedure: COMBINED COLONOSCOPY, SINGLE OR MULTIPLE BIOPSY/POLYPECTOMY BY BIOPSY; Surgeon: Kwaku Colón MD; Location: [facility] ??? COLONOSCOPY N/A 05/09/2017 Procedure: COLONOSCOPY;; Surgeon: Lindsay Juares MD; Location: [facility] OR ??? CYSTOCELE REPAIR [...] FIBULAR FRACTURE; Surgeon: Jovany Gonzalez MD; Location: [facility]; Service: ??? rectocele and cystocel repairs ??? REMOVE HARDWARE LOWER EXTREMITY Right 12/13/2017 Procedure: REMOVAL OF SYNDESMOSIS SCREWS, SUHAS; Surgeon: Jovany Gonzalez MD; Location: [facility] OR; Service: ??? REPAIR RECTOCELE ??? TONSILLECTOMY ??? ZZC NONSPECIFIC PROCEDURE 06/2001 Colonoscopy - neg -- abstracted 12/26/01 Allergies Allergen Reactions ??? Bees Anaphylaxis ??? Levaquin [Levofloxacin Hemihydrate] Rash ??? Reglan [Metoclopramide Hcl] Hives ??? Droperidol Behavioral changes ??? Nalbuphine Hcl Behavioral changes ??? Nsaids Other reaction(s): gi bleed ??? Phenergan [Promethazine] Other (See Comments) Patient reports she gets mean & jerky Social History Tobacco Use ??? Smoking status: Every Day Packs/day: 1.00 Years: 50.00 Pack years: 50.00 Types: Cigarettes ??? Smokeless tobacco: Never ??? Tobacco comments: down to 4 cigs per day. Quitting 10/04/21 Vaping Use ??? Vaping status: Every Day Substances: CBD Substance Use Topics ??? Alcohol use: Not Currently Wt Readings from Last 1 Encounters: 10/26/22 106.1 kg (234 lb) Anesthesia Evaluation Pt has had prior anesthetic. Type: General. No history of anesthetic complications ROS/MED HX ENT/Pulmonary: (+) sleep apnea, COPD, Neurologic: - neg neurologic ROS Cardiovascular: (+) hypertension-----CHF fainting (syncope). METS/Exercise Tolerance: Hematologic: - neg hematologic ROS Musculoskeletal: GI/Hepatic: (+) GERD, liver disease, Renal/Genitourinary: - neg Renal ROS Endo: (+) type II DM, thyroid problem, hypothyroidism, Obesity, Psychiatric/Substance Use: - neg psychiatric ROS Infectious Disease: - neg infectious disease ROS Malignancy: - neg malignancy ROS Other: - neg other ROS (+) , H/O Chronic Pain, Physical Exam Airway Mallampati: III TM distance: > 3 FB Neck ROM: full Mouth opening: > 3 cm Respiratory Devices and Support Dental (+) Edentulous Cardiovascular cardiovascular exam normal Pulmonary pulmonary exam normal OUTSIDE LABS: CBC: Lab Results Component Value Date WBC 5.4 10/26/2022 WBC 4.7 10/25/2022 HGB 13.8 10/26/2022 HGB 13.6 10/25/2022 HCT 42.8 10/26/2022 HCT 41.0 10/25/2022 PLT 250 10/26/2022 PLT 285 10/25/2022 BMP: Lab Results Component Value Date NA 141 10/27/2022 NA 142 10/26/2022 POTASSIUM 3.8 10/27/2022 POTASSIUM 3.6 10/26/2022 CHLORIDE 106 10/27/2022 CHLORIDE 100 10/26/2022 CO2 23 10/27/2022 CO2 25 10/26/2022 BUN 4.5 (L) 10/27/2022 BUN 8.4 10/26/2022 CR 0.86 10/27/2022 CR 0.90 10/26/2022 GLC 151 (H) 10/28/2022 GLC 135 (H) 10/28/2022 COAGS: Lab Results Component Value Date PTT 20 (L) 10/17/2021 INR 1.05 10/17/2021 POC: Lab Results Component Value Date BGM 160 (H) 01/18/2021 HCG Negative 07/04/2010 HEPATIC: Lab Results Component Value Date ALBUMIN 3.7 10/15/2022 PROTTOTAL 6.3 (L) 10/15/2022 ALT 20 10/15/2022 AST 44 (H) 10/15/2022 GGT 205 (H) 10/08/2009 ALKPHOS 199 (H) 10/15/2022 BILITOTAL 0.6 10/15/2022 JOSELUIS 15 05/17/2011 OTHER: Lab Results Component Value Date PH 7.43 07/04/2010 LACT 1.2 10/26/2022 A1C 6.5 (H) 10/16/2022 ALISA 8.4 (L) 10/27/2022 PHOS 1.8 (L) 10/26/2022 MAG 1.7 10/26/2022 LIPASE 17 10/27/2022 AMYLASE 7 (L) 03/15/2018 TSH 47.60 (H) 10/04/2022 T4 0.66 (L) 10/04/2022 T3 84 04/21/2018 CRP 120.0 (H) 11/15/2021 SED 70 (H) 11/15/2021 Anesthesia Plan ASA Status: 3 NPO Status: NPO Appropriate Anesthesia Type: MAC. Consents Anesthesia Plan(s) and associated risks, benefits, and realistic alternatives discussed. Questions answered and patient/claims service representative(s) expressed understanding. - Discussed: - Discussed with: Patient Postoperative Care Pain management: IV analgesics, Oral pain medications, Multi-modal analgesia. PONV prophylaxis: Ondansetron (or other 5HT-3), Dexamethasone or Solumedrol Comments: Douglas Lechuga MD documented in this encounter Miscellaneous Notes * Anesthesia Care Transfer Note - Lenka Fan APRN CRNA - 10/28/2022 12:07 PM CDT Patient: Kaila Hernandez Procedure: Procedure(s): COLONOSCOPY with biopsies Diagnosis: Pancolitis (H) [K51.00] Diagnosis Additional Information: No value filed. Anesthesia Type: No value filed. Note: Oropharynx: oropharynx clear of all foreign objects Level of Consciousness: awake Oxygen Supplementation: room air Independent Airway: airway patency satisfactory and stable Dentition: dentition unchanged Vital Signs Stable: post-procedure vital signs reviewed and stable Report to RN Given: handoff report given Patient transferred to: PACU Handoff Report: Identifed the Patient, Identified the Reponsible Provider, Reviewed the pertinent medical history, Discussed the surgical course, Reviewed Intra-OP anesthesia mangement and issues during anesthesia, Set expectations for post-procedure period and Allowed opportunity for questions andacknowledgement of understanding Vitals: Vitals Value Taken Time BP Temp Pulse Resp SpO2 98 % 10/28/22 1207 Vitals shown include unvalidated device data. Electronically Signed By: Lenka Fan APRN CRNA October 28, 2022 12:07 PM documented in this encounter Plan of Treatment Upcoming Encounters Date Type Department Care Team (Late st Contact Info) Description 08/18/2023 3:00 PM ROCK WOOL APPLICATOR Office Visit [facility] [address] [place] [address] Katiana Read MD [address] [place] [address] documented as of this encounter Visit Diagnoses Not on filedocumented in this encounter Administered Medications Inactive Administered Medications - up to 3 most recent administrations Medication Order MAR Action Action Date Dose Rate Site lactated ringers infusion at 75 mL/hr, Intravenous, CONTINUOUS, Starting on Zenaida 10/28/22 at 0600, Until Zenaida 10/28/22 at 1727 Rate/Dose Change 10/28/2022 12:00 PM CDT 400 mL/hr $New Bag 10/28/2022 5:56 AM CDT 75 mL/hr midazolam (VERSED) injection Intravenous, Administer over 2 Minutes, PRN, Starting on Zenaida 10/28/22 at 1135, Anesthesia Intra-op $Given 10/28/2022 11:35 AM CDT 2 mg propofol (DIPRIVAN) infusion Intravenous, CONTINUOUS PRN, Starting on Zenaida 10/28/22 at 1135, Anesthesia Intra-op $New Bag 10/28/2022 11:35 AM CDT 100 mcg/kg/min 63.66 mL/hr documented in this encounter Additional Health Concerns Infection Onset Date Last Indicated Resolved Time C-difficile 10/15/2022 10/27/2022 11/26/2022 11:4 0 PM CDT Assessment Noted Time PHQ-9 Depression Total Score: 10 023 2:06 PM CDT documented as of this encounter Care Teams Candy Polisher Relationship Specialty [place] [address] [place] [address] PCP - General Family Medicine 05/18/22 Jovany Gonzalez MD [facility] [address] [facility] [address] [place], [place] [address] Orthopedics 02/15/17 Staci Woodward NP [facility] [address] [place] [address] Nurse Practitioner Nurse Practitioner Psych/Mental Health 05/10/17 Reanna Smith, RD [facility] [address] [place] [address] Loop Cutter Dietitian, Registered 07/25/19 Roshni Nascimento, RN Personal Advocate & Liaison (PAL) Family Medicine 08/18/20 Kiet Swain MD [address] [place] [address] [address] [place], [place] [address] Referring Physician Psychiatry 09/19/20 Winsome Pike APRN FUEL QUALITY TECH [facility] [address] [address] Nurse Practitioner Psychiatry 09/19/20 Tori Hines, [facility] [address] [place] [phone] Insurance Coder Insurance Coder - Clinical 09/19/20 Miranda Queen [facility] [address] [place] [address] Pharmacist Pharmacist 11/12/20 Marisel Armando MD [address] [place] [address] [phone] Gastroenterology 02/05/21 Marisel Armando MD [address] [place] [address] 347995 Assigned Gastroenterology Provider 03/08/21 12/24/22 Wesley Barrett MD [address] [place] [address] [address] [place], [place] 4969[address] Assigned Neuroscience Provider 05/10/21 [place] [address] [place] [address] Assigned PCP 05/15/22 Katiana Read MD [address] [facility] [address] [place] [address] Assigned Endocrinology Provider 06/19/22 [place] [address] [place] [address] Assigned Behavioral Health Provider 07/03/22 12/31/22 Deena Garza APRN FUEL QUALITY TECH [address] [place] [address] Assigned Pain Medication Provider 07/19/22 10/29/22 Mary Del Cid, [facility] [address] [place] [address] Nurse Practitioner Nurse Practitioner 10/18/22 Elham Stack, [facility] [address] [place] [address] Pharmacist Pharmacist 10/19/22 Michelle Guzman, DPM, Podiatry/Foot and Ankle Surgery [address] [place] [address] Assigned Musculoskeletal Provider 10/16/22 04/08/23 documented as of this encounter
--- OUTSIDE RECORDS SUMMARY | 2023-08-03 10:02 | XMS_ITS | Encounter Summary ---
Author Name Unknown Organization [facility] Address [address] [place] [address]. [place] [address] Care Team Providers Care Beveling And Edging Machine Operator Name Role Phone Jovany Gonzalez MD Unavailable CrissyStaci jeong NP Unavailable [phone] Unavailable Roshni Nascimento RN Unavailable Unavailable Kiet Swain MD Unavailable [phone] Winsome Pike APRN STIFF STRAW HAT WASHER Unavailable [phone] Tori HinesSW Unavailable Miranda Queen [facility] Unavailable Unavailable Marisel Armando MD Unavailable Marisel Armando MD Unavailable Wesley Barrett MD Unavailable [phone] Dyan Fuentes MD Primary Care Provider [phone] Dyan Fuentes MD Unavailable [phone] Katiana Read MD Unavailable [phone] Meme Singleton PhD Unavailable [phone] Deena Garza AGRICULTURAL ENGINEERING TECH[employer]ICI[employer] STIFF STRAW HAT WASHER Unavailable [phone] Maurice Cee BELT PICKER Unavailable Elham Stack [facility] Unavailable Emerita Potter Alisha [facility] Unavailable Michelle Guzman DPM, Podiatry /Foot and Ankle Surgery Unavailable Reason for Visit * Reason Onset Date Comments Opioid Refill 10/28/2022 buprenorphine HC l-naloxone HCl (SUBOXONE) 2-0.5 MG per film Encounter Details Date Type Department Care Team (Late st Contact Info) Description 10/28/2022 Telephone [facility] [place] [address] [facility] [address] [place], [place] [id number] [place] [address] [place] [place] [phone] Opioid Refill (buprenorphine HCl-naloxone HCl (SUBOXONE) 2-0.5 [...] often do you attend chur ch or hindu services? 1 to 4 times [...] Answer Date Recorded PHQ-2 Score 2 10/25/2022 [facility] - Occupational Stress Questionnaire Answer [...] in a fci (including now)? No 10/16/2021 Education Answer Date [...] encounter Miscellaneous Notes * Telephone Encounter - Cyndee Leija CMA - 10/29/2022 10:58 AM CDT Left message on [employer] . Rx was E-Prepcribed to the pharmacy. Orders Placed This Encounter Medications ??? buprenorphine HCl-naloxone HCl (SUBOXONE) 2-0.5 MG per film Sig: Place 1 Film under the tongue 3 times daily OK to fill 10/28/22 start 10/28/22 Dispense: 90 Film Refill: Patient notified of dispense and start date. * Telephone Encounter - Maurice Cee NP - 10/28/2022 5:08 PM CDT Script Eprescribed to pharmacy [place] Prescription Monitoring Program checked - fill from 09/21/22 does not show, thank you for confirming belt picker with the pharmacy. Will send this to MA team to notify patient. Signed Prescriptions: Disp Refills buprenorphine HCl-naloxone HCl (SUBOXONE) *90 Film0 Sig: Place 1 Film under the tongue 3 times daily OK to fill 10/28/22 start 10/28/22 Authorizing Provider: MAURICE CEE NP * Telephone Encounter - Blanquita Perera RN - 10/28/2022 3:40 PM CDT Routing to provider to review medication prepped per below Updated appt note to update annual protocols at next follow up appt. suboxone 2- 0.5, #90, Refill:no Sig:OK to fill 10/28/22 start 10/28/22 Last picked up 09/21/22 with start on 09/23/22 Due-now Per last OV note 07/15/22: 1. Chronic pain syndrome Continue current regimen. Will send refill of buprenorphine. Robaxin not refilled at this time, hasbeen filling a quantity of #150 tablets every three months and just filled on 07/02/22. Can call for refills as needed. Will continue to hold on PT until she has stabilized with her other health issues. Continue to work with mental health providers. Follow-up in three months, okay to schedule a virtual visit. ?? - buprenorphine HCl-naloxone HCl (SUBOXONE) 2-0.5 MG per film; Place 1 Film under the tongue 3 times daily OK to fill 07/23/22 and use 07/25/22 through 08/23/22 Dispense: 60 Film; Refill: 0 * Telephone Encounter - Leeann Echevarria MA - 10/28/2022 2:23 PM CDT Received call from patient requesting refill(s) of buprenorphine HCl-naloxone HCl (SUBOXONE) 2-0.5 MG per film Last dispensed from pharmacy on 09/21/22 Patient's last office/virtual visit by prescribing provider on 07/15/22 Next office/virtual appointment scheduled for 11/11/22 Last urine drug screen date 12/17/21- Greg Current opioid agreement on file (completed within the last year) Yes Date of opioid agreement: 12/17/21- Greg E-prescribe to [facility] - [place], [place] - [address] [facility] [place] [address] Will route to nursing [place] for review and preparation of prescription(s). MICHELLE King [facility] * Telephone Encounter - Janine Argueta RN - 10/28/2022 2:10 PM CDT Will route to MICHELLE armenta for assistance with gathering opioid refill information. Janine Raymundo RN Chairman & Chief Executive Officer [facility] * Telephone Encounter - Misty Monroy - 10/28/2022 1:55 PM CDT [facility] Phone Message May a detailed message be left on voicemail: yes Reason for Call: Medication Refill Request Has the patient contacted the pharmacy for the refill? Yes Name of medication being requested: buprenorphine HCl-naloxone HCl (SUBOXONE) 2- 0.5 MG per film Provider who prescribed the medication: Maurice Cee NP Pharmacy: [facility] - [address] Date medication is needed:11/01/2022 Action Taken: Message routed to: Other: [facility] Pain Travel Screening: Not Applicable documented in this encounter Plan of Treatment Upcoming Encounters Date Type Department Care Team (Late st Contact Info) Description 08/18/2023 3:00 PM SENIOR QUALITY ANALYST Office Visit [facility] [address] [place] [address] Katiana Read MD [address] [place] [address] documented as of this encounter Visit Diagnoses Diagnosis Chronic pain syndrome documented in this encounter Additional Health Concerns Infection Onset Date Last Indicated Resolved Time C-difficile 10/15/2022 10/27/2022 11/26/2022 11:4 0 PM CDT Rule Out C-difficile 10/26/2022 10/27/2022 023 2:14 AM CDT Assessment Noted Time PHQ-9 Depression Total Score: 10 023 2:06 PM CDT documented as of this encounter Care Teams Beveling And Edging Machine Operator Relationship Specialty [place] [address] [place] [address] PCP - General Family Medicine 05/18/22 Jovany Gonzalez MD [facility] [address] [facility] [address] [place], [place] [address] Orthopedics 02/15/17 Staci Woodward, BELT PICKER [facility] [address] [place], [place] [address] Nurse Practitioner Nurse Practitioner Psych/Mental Health 05/10/17 Reanna Smith, RD [facility] [address] [place], [place] [address] Senior Compensation Consultant Dietitian, Registered 07/25/19 Roshni Nascimento, RN Personal Advocate & Liaison (PAL) Family Medicine 08/18/20 Kiet Swain MD [address] [place], [place] [id number] [place], [place] [address] Referring Physician Psychiatry 09/19/20 Winsome Pike APRN STIFF STRAW HAT WASHER [address] [place] [address] Nurse Practitioner Psychiatry 09/19/20 Tori Hines, [facility] [address] [place] [address] Occupational Ther Occupational Ther - Clinical 09/19/20 Richradfeiena Miranda, [facility] [address] [place] [address] Pharmacist Pharmacist 11/12/20 Marisel Armando MD [address] [place] [address] Gastroenterology 02/05/21 Marisel Armando MD [address] [place] [address] Assigned Gastroenterology Provider 03/08/21 12/24/22 Wesley Barrett MD [address] [place] [address] Assigned Neuroscience Provider 05/10/21 [place] [address] [place] [address] Assigned PCP 05/15/22 Katiana Read MD [address] [place] [address] Assigned Endocrinology Provider 06/19/22 [place] PhD [address] [place] [address] Assigned Behavioral Health Provider 07/03/22 12/31/22 Deena Garza, [employer] STIFF STRAW HAT WASHER [address] [place] [address] Assigned Pain Medication Provider 07/19/22 10/29/22 Maurice Cee, [facility] [address] [place] [phone] Nurse Practitioner Nurse Practitioner 10/18/22 Elham Stack, [facility] [address] [place] [address] Pharmacist Pharmacist 10/19/22 Emerita Potter, [facility] Clinic Chairman & Chief Executive Officer Occupational Ther - Clinical 10/29/22 11/02/22 Michelle Guzman, ERIC, Podiatry/Foot and Ankle Surgery [address] [place] [address] Assigned Musculoskeletal Provider 10/16/22 04/08/23 documented as of this encounter
--- OUTSIDE RECORDS SUMMARY | 2023-08-03 10:02 | XMS_ITS | Encounter Summary ---
Author Name Unknown Organization [facility] Address [address] [place] [address]. [place] [address] Care Team Providers Care Post Acute Care Registered Nurse Name Role Phone Jovany Gonzalez MD Unavailable CrissyStaci jeong ASSISTANT FOREMAN Unavailable [phone] Unavailable Roshni Nascimento RN Unavailable Unavailable Kiet Swain MD Unavailable [phone] Winsome Pike APRN CLAY WORKER Unavailable [phone] Tori Hines [facility] Unavailable Miranda Queen [facility] Unavailable Unavailable Marisel Armando MD Unavailable Marisel Armando MD Unavailable Wesley Barrett MD Unavailable [phone] Dyan Fuentes MD Primary Care Provider [phone] Dyan Fuentes MD Unavailable [phone] Katiana Read MD Unavailable [phone] Meme Singleton PhD Unavailable [phone] Mary Del Cid ASSISTANT FOREMAN Unavailable + [phone] Elham Stack [facility] Unavailable [phone] Mary Del Cid NP Unavailable [phone] Michelle Guzman DPM, Podiatry /Foot and Ankle Surgery Unavailable Dyan Fuentes MD Unavailable [phone] Mary Del Cid ASSISTANT FOREMAN Unavailable [phone] Aubrey Jones MD Unavailable + [phone] Blanquita Morales Unavailable Unavailable Aubrey Jones MD Unavailable + [phone] Encounter Details Date Type Department Care Team (Late st Contact Info) Description 11/04/2022 [facility] [place] Medical Advice [address] [address] Roshni Nascimento RN Social History [...] you attend [employer] [facility] [facility] or pentecostalism services? 1 to 4 times per year [...] Answer Date Recorded PHQ-2 Score 2 10/25/2022 [facility] - Occupational Stress Questionnaire Answer Date [...] st Contact Info) Description 08/18/2023 3:00 PM JAVA WEB DEVELOPER Office Visit [facility] [address] [place] [address] Katiana Read MD [address] [facility] [address] [place], [place] [address] documented as of this encounter Visit Diagnoses Not on filedocumented in this encounter Additional Health Concerns Infection Onset Date Last Indicated Resolved Time C-difficile 10/15/2022 10/27/2022 11/26/2022 11:4 0 PM CDT Rule Out C-difficile 12/05/2022 12/05/2022 023 9:44 AM CDT Assessment Noted Time PHQ-9 Depression Total Score: 10 023 2:06 PM CDT documented as of this encounter Care Teams Post Acute Care Registered Nurse Relationship Specialty [place] [address] [place] [address] PCP - General Family Medicine 05/18/22 Jovany Gonzalez MD [facility] [address] [facility] [address] [place] [address] Orthopedics 02/15/17 Staci Woodward ASSISTANT FOREMAN [facility] [address] [place] [address] Nurse Practitioner Nurse Practitioner Psych/Mental Health 05/10/[address] [facility] [address] [place] [address] Inbound Sales Advisor Dietitian, Registered 07/25/19 Roshni Nascimento, RN Personal Advocate & Liaison (PAL) Family Medicine 08/18/20 Kiet Swain MD [address] [place], [place] [address] [place], [place] [address] Referring Physician Psychiatry 09/19/20 Winsome Pike APRN CLAY WORKER [address] [place] [address] [id number] Nurse Practitioner Psychiatry 09/19/20 Tori Hines [facility] [address] [place] [address] Boathouse Keeper Boathouse Keeper - Clinical 09/19/20 Miranda Queen [facility] [address] [place] [address] Pharmacist Pharmacist 11/12/20 Marisel Armando MD [address] [place] [address] [phone] Gastroenterology 02/05/21 Marisel Armando MD [address] [place] [address] [id number] Assigned Gastroenterology Provider 03/08/21 12/24/22 Wesley Barrett MD [address] [place] [address] 96 [place], [place] [id number] Assigned Neuroscience Provider 05/10/21 [place] [address] [place] [address] Assigned PCP 05/15/22 Katiana Read MD [address] [place] [address] 200 [place], [place] [phone] Assigned Endocrinology Provider 06/19/22 [place] [address] [address] [address] Assigned Behavioral Health Provider 07/03/22 12/31/22 Mary Del Cid, RAFAEL [address] [address] [address] Nurse Practitioner Nurse Practitioner 10/18/22 Elham Stack, [facility] [address] [place] [address] Pharmacist Pharmacist 10/19/22 Mary Del Cid, ARFAEL [address] [address] [address] Assigned Pain Medication Provider 10/30/22 12/03/22 Michelle Guzman DPM, Podiatry/Foot and Ankle Surgery [address] [place] [facility] [place] [address] Assigned Musculoskeletal Provider 10/16/22 04/08/23 [place] [address] [place] [address] Assigned Pain Medication Provider 12/04/22 04/01/23 [place] [address] [address] [address] Nurse Practitioner Nurse Practitioner 01/17/23 01/17/23 Aubrey Jones MD [address] [place] [address] Cardiovascular Disease 03/28/23 Blanquita Morales Inbound Sales Advisor Diabetes Education 04/25/23 Aubrey Jones MD [address] [place] [address] Assigned Heart and Vascular Provider 05/07/23 documented as of this encounter
--- OUTSIDE RECORDS SUMMARY | 2023-08-03 10:02 | XMS_ITS | Encounter Summary ---
Author Name Unknown Organization [place] Address [address] [place] [address]. [place] [address] Care Team Providers Care Manager Of Customer Billing Name Role Phone Jovany Gonzalez MD Unavailable [phone] CrissyStaci jeong MANNEQUIN DECORATOR Unavailable [phone] Unavailable Roshni Nascimento RN Unavailable Unavailable Kiet Swain MD Unavailable [phone] Winsome Pike APRN FIRER KILN Unavailable [phone] Tori Hines [facility] Unavailable Miranda Queen [facility] Unavailable Unavailable Marisel Armando MD Unavailable Marisel Armando MD Unavailable Wesley Barrett MD Unavailable [phone] Dyan Fuentes MD Primary Care Provider [phone] Dyan Fuentes MD Unavailable [phone] Katiana Read MD Unavailable [phone] Meme Singleton PhD Unavailable [phone] Mary Del Cid MANNEQUIN DECORATOR Unavailable + [phone] Elham Stack [facility] Unavailable [phone] Mary Del Cid NP Unavailable Michelle Guzman DPM, Podiatry /Foot and Ankle Surgery Unavailable Reason for Referral * CV Testing (Routine) - Closed Specialty Diagnoses / Procedures Referred By Contac t Referred To Contact Cardiology Diagnoses Chronic diastolic congestive heart failure (H) Procedures Echocardiogram Complete ZZHC TTE W/DOPPLER, COMPLETE ZZHC ECHO COMPLETE W DOPPLER W CONTRAST ZZHC ECHO COMPLETE W DOPPLER W/O CONTRAST ZZHC IV PUSH SINGLE, INITIAL SUBSTANCE ZZHC US GUIDE FOR PERICARDIOCENTESIS ZZHC ECHO MYOCARD BX ZZC INJECTION, PERFLUTREN LIPID MICROSPHERES, PER ML ZZHC STATISTIC IV PUSH SINGLE INITIAL SUBSTANCE TX ECHO MYOCARD BX TX INJECTION, PERFLUTREN LIPID MICROSPHERES, PER ML TX TTE W/DOPPLER, COMPLETE TX IV PUSH SINGLE, INITIAL SUBSTANCE TX TTE W/DOPPLER, COMPLETE TX TTE W/DOPPLER, COMPLETE HC US GUIDE FOR PERICARDIOCENTESIS HC ECHO MYOCARD BX HC IV PUSH SINGLE, INITIAL SUBSTANCE HC STATISTIC IV PUSH SINGLE INITIAL SUBSTANCE HC ECHO COMPLETE W DOPPLER W CONTRAST HC ECHO COMPLETE W DOPPLER W/[place] [address] [place] [address] Cv Cardiac Svc [facility] [address] [facility] [address] [place] [address] Referral ID Status Reason Start Date Expiration Date Visits Re quested Visits Authorized Closed 12/02/2022 12/02/2023 1 1 * CV Cardio consult (Routine: Next available opening) - Referral NOT Required Specialty Diagnoses / Procedures Referred By Contac t Referred To Contact Cardiovascular Disease Diagnoses Chronic diastolic congestive heart failure (H) [place] [address] [place] [address] Referral ID Status Reason Start Date Expiration Date V isits Requested Visits Authorized [id number] Referral NOT Required 11/25/2022 11/25/2023 1 1 Question Answer Reason for Consult: General Cardiology Scheduling Instructions: [facility] will call you to coordinate your care as prescribed by your provider. If you don't hear from a visitor services representative within 2 business days, please call [phone]. Comments Please be aware that coverage of these services is subject to the terms and limitations of your health insurance plan. Call member services at your health plan with any benefit or coverage questions. [facility] will call you to coordinate your care as prescribed by your provider. If you don't hear from a visitor services representative within 2 business days, please call [phone]. Reason for Visit * Reason Comments Hospital F/U Encounter Details Date Type Department Care Team (Late st Contact Info) Description 11/25/2022 3:00 PM CDT Office Visit [address] [address] Dyan Fuentes MD [address] [place] [address] Hospital discharge follow-up (Primary Dx); C. difficile colitis; Type 2 diabetes mellitus without complication, without long-term current use of insulin (H); Tobacco dependence; Nausea; Postablative hypothyroidism; Abnormal electrocardiogram; Encounter for long-term opiate analgesic use; Chronic diastolic congestive heart failure (H) Social History Tobacco Use Types Packs/Day [...] week 10/16/2021 How often do you attend [facility] or scientologist services? 1 to 4 times [...] Date Recorded PHQ-2 Score 2 11/25/2022 [facility] - Occupational Stress Questionnaire Answer Date [...] Sign Reading Time Taken Comments Blood Pressure 138/70 11/25/2022 3:03 PM CDT Pulse 83 11/25/2022 3:03 PM CDT Temperature 36.7 ??C (98 ??F) 11/25/2022 3:03 PM CDT Respiratory Rate 18 11/25/2022 3:03 PM CDT Oxygen Saturation 97% 11/25/2022 3:03 PM CDT Inhaled Oxygen Concentration - - Weight 106.3 kg (234 lb 6.4 oz) 11/25/2022 3:03 PM CDT Height 172.7 cm (5' 8) 11/25/2022 3:03 PM CDT Body Mass Index 35.64 11/25/2022 3:03 PM CDT documented in this encounter Progress Notes * Roshni Nascimento RN - 11/25/2022 3:00 PM CDT Pre-Visit Planning Appointment Notes for this encounter: follow up from hospital Questionnaires Reviewed/AssignedNo additional questionnaires are needed Patient preferred phone number: [phone] Patient contact not needed. See discharge- Did try to call pt LM X 2 Roshni Nascimento, RN * Dyan Fuentes MD - 11/25/2022 3:00 PM CDT Assessment & Plan Hospital discharge follow-up C. difficile colitis - doing much better, still having some nausea. Her baseline prior to C diff infection was occasional nausea. Type 2 diabetes mellitus without complication, without long-term current use of insulin (H) - last A1c in range, she follows with Endocrinology Tobacco dependence Nausea - ondansetron (ZOFRAN) 8 MG tablet; Take 1 tablet (8 mg) by mouth every 8 hours as needed for nausea Postablative hypothyroidism - surveillance labs, will forward results to endo - T4, free; Future - TSH; Future - T4, free - TSH Abnormal electrocardiogram - needs echo scheduled, reports trouble making contact with scheduling department, has asked my staff to help with this. - Adult Cardiology Eval Printing Specialist Referral; Future Chronic diastolic congestive heart failure (H) - Adult Cardiology Eval Printing Specialist Referral; Future Encounter for long-term opiate analgesic use - per pain clinic - Drug Screen 9, Ser/Jaime w/ Rflx to Conf Post Medication Reconciliation Status: Discharge medications reconciled, continue medications without change Dyan Fuentes MD [facility] KAT Bright is a 61 year old, presenting for the following health issues: Hospital F/U 11/25/2022 3:02 PM Additional Questions Roomed by Sarah Daily [facility] Hospital Follow-up Visit: Hospital/Alf/IP Rehab Facility: [facility] Date of Admission: 10/25/2022 Date of Discharge: 10/28/2022 Reason(s) for Admission: Last attending ??? Treatment team Nausea and vomiting, unspecified vomiting type Was your hospitalization related to COVID-19? No Problems taking medications regularly: None Medication changes since discharge: None Problems adhering to non-medication therapy: None Summary of hospitalization: [facility] discharge summary reviewed Diagnostic Tests/Treatments reviewed. Follow up needed: none Other Healthcare Providers Involved in Patient???s Care: None Update since discharge: improved. Plan of care communicated with patient Review of Systems Constitutional, HEENT, cardiovascular, pulmonary, gi and gu systems are negative, except as otherwise noted. Objective BP 138/70 (BP Location: Right arm, Patient Position: Sitting, Cuff Size: Adult Regular) Pulse 83 Temp 98 ??F (36.7 ??C) (Oral) Resp 18 Ht 1.727 m (5' 8) Wt 106.3 kg (234 lb 6.4 oz) LMP (LMP Unknown) SpO2 97% BMI 35.64 kg/m?? Body mass index is 35.64 kg/m??. Physical Exam GENERAL: healthy, alert and no distress RESP: lungs clear to auscultation - no rales, rhonchi or wheezes CV: regular rate and rhythm, normal S1 S2, no S3 or S4, no murmur, click or rub, no peripheral edema and peripheral pulses strong ABDOMEN: abdominal hernia palpated RUQ, soft, nontender, no hepatosplenomegaly, no masses and bowelsounds normal Answers for HPI/ROS submitted by the patient on 11/25/2022 PHQ9 TOTAL SCORE: 10 documented in this encounter Miscellaneous Notes * Addendum Note - Dyna Fuentes MD - 11/25/2022 3:00 PM CDTAddended by: DYAN FUENTES on: 12/02/2022 10:12 AM Modules accepted: Orders documented in this encounter Plan of Treatment Upcoming Encounters Date Type Department Care Team (Late st Contact Info) Description 08/18/2023 3:00 PM SENIOR INFORMATION DEVELOPER Office Visit [facility] [address] [place] [address] Katiana Read MD [address] [place] [address] Scheduled Orders Name Type Priority Associated Diagnoses Order Schedule Echocardiogram Complete Echocardiography Routine Chronic diastolic congestive heart failure (H) Expected: 12/02/2022 (Approximate), Expires: 12/03/2023 Scheduled Referrals Name Type Priority Associated Diagnoses Orde r Schedule Adult Cardiology Eval Printing Specialist Referral Referral Routine: Next available opening Chronic diastolic congestive heart failure (H) Expected: 11/25/2022 (Approximate), Expires: 11/26/2023 documented as of this encounter Procedures Procedure Name Priority Date/Time Associated Diagnosis Comments BUPRENORPHINE & METABOLITES, S/P, QUANT Routine 11/25/2022 3:39 PM CDT Encounter for long-term opiate analgesic use THC CONFIRMATION Routine 11/25/2022 3:39 PM CDT Encounter for long-term opiate analgesic use DRUG SCREEN 9, SER/JAIME W/RFLX TO CONF Routine 11/25/2022 3:39 PM CDT Encounter for long-term opiate analgesic use TSH Routine 11/25/2022 3:39 PM CDT Postablative hypothyroidism T4 FREE Routine 11/25/2022 3:39 PM CDT Postablative hypothyroidism documented in this encounter Results * THC Confirmation (11/25/2022 3:39 PM CDT) [facility] 253 ng/mL 12/01/2022 2:29 PM CDT [facility] Comment: INTERPRETIVE INFORMATION: THC Metabolite, Serum or ?Plasma, Quantitative Methodology: Quantitative Liquid Chromatography-Tandem Mass Spectrometry. Positive cutoff: 5 ng/mL For medical purposes only; not valid for forensic use. The drug analyte detected in this assay, 9-carboxy THC, is a metabolite of xyzus-8-noenbixcsopwgnyknuxs (THC). ?? Detection of 9-carboxy THC suggests use of, or exposure to, a product containing THC. ??This test cannot distinguish between prescribed or non-prescribed forms of THC, nor can it distinguish between active or passive use. ??The plasma half-life for 9-carboxy THC metabolite is estimated to range from 4-12 hours. This test was developed and its performance characteristics determined by [facility]. It has not been cleared or approved by the US Food and Drug Administration. This test was performed in a CLIA certified laboratory and is intended for clinical purposes. Performed By: [facility] [email or web address] [address] [place], [place] [id number] Fuse Coiler: Sherman Park MD, PhD Blood BLOOD SPECIMEN / Unknown Venipuncture / Unknown 11/25/2022 3:39 PM CDT 11/25/2022 3:39 PM CDT Mary Donna Del Cid NP LAB - BLOOD DENICE BERGMAN [address] [address], [facility] [phone] * Buprenophine Confirmation (11/25/2022 3:39 PM CDT) Norbuprenorphine 36.6 ng/mL 12/02/19 1:28 PM CDT [facility] Buprenorphine 5.6 ng/mL 12/01/2022 1:28 PM CDT [facility] Comment: INTERPRETIVE INFORMATION: Buprenorphine and Metabolites, ?Serum or Plasma, Quantitative Methodology: Quantitative Liquid Chromatography-Tandem Mass Spectrometry Positive cutoff: 1 ng/mL For medical purposes only; not valid for forensic use. The presence of metabolite(s) without parent drug is common and may indicate use of parent drug during the prior week. The absence of expected drug(s) and/or drug metabolite(s) may indicate non-compliance, inappropriate timing of specimen collection relative to drug administration, poor drug absorption, or limitations of testing. The concentration value must be greater than or equal to the cutoff to be reported as positive. Interpretive questions should be directed to the laboratory. This test was developed and its performance characteristics determined by [facility]. It has not been cleared or approved by the US Food and Drug Administration. This test was performed in a CLIA certified laboratory and is intended for clinical purposes. Performed By: [facility] [address] [place] [id number] Fuse Coiler: Sherman Park MD, PhD Blood BLOOD SPECIMEN / Unknown Venipuncture / Unknown 11/25/2022 3:39 PM CDT 11/25/2022 3:39 PM CDT Mary Del Cid NP LAB - BLOOD DENICE BERGMAN [facility] [address] [place] [address], [facility] [phone] * Drug Screen 9, Ser/Jaime w/ Rflx to Conf (11/25/2022 3:39 PM CDT) Pathologist [facility] Amphetamines Qual Negative Cutoff 20 ng/mL 11/27/2022 [...] ng/mL 11/27/2022 6:47 PM CDT [facility] Drug Screen Comments, Serum or Plasma See Note 11/27/2022 6:47 PM CDT [facility] Comment: INTERPRETIVE INFORMATION: Drug Screen 9 Panel, [...] developed and its performance characteristics determined by [facility]. It has not been cleared or approved by the US Food and Drug Administration. This test was performed in a CLIA certified laboratory and is intended for clinical purposes. Performed By: [facility] [address] [place] [address] Fuse Coiler: Sherman Park MD, PhD Cannabinoids Qual Positive Cutoff 20 ng/mL 11/27/2022 6:47 PM CDT [id number] Comment: If the screen is positive, then confirmation by mass spectrometry will be added. Additional charges will apply. Unconfirmed positive may be useful for medical purposes, but does not meet forensic standards. Blood BLOOD SPECIMEN / Unknown Venipuncture / Unknown 11/25/2022 3:39 PM CDT 11/25/2022 3:39 PM CDT Mary Del Cid NP LAB - BLOOD DENICE BERGMAN [facility] [address] [place] [address], [facility] [phone] * (ABNORMAL) TSH (11/25/2022 3:39 PM CDT) TSH 96.00(H) 0.30 - 4.20 uIU/mL 11/26/2022 8:09 PM CDT [facility] Blood BLOOD SPECIMEN / Unknown Venipuncture / Unknown 11/25/2022 3:39 PM CDT 11/25/2022 3:39 PM CDT Dyan Fuentes MD LAB - BLOOD ORDER LENA [facility] [address] [facility], [address] [id number], [facility] [phone] * (ABNORMAL) T4, free (11/25/2022 3:39 PM CDT) Free T4 0.88(L) 0.90 - 1.70 ng/dL 11/26/2022 8:09 PM CDT [facility] Blood BLOOD SPECIMEN / Unknown Venipuncture / Unknown 11/25/2022 3:39 PM CDT 11/25/2022 3:39 PM CDT Dyan Fuentes MD LAB - BLOOD ORDER LENA Performing Organization Address City/[facility]/ZIP Co de Phone Number LABORATORY [facility] [address] [facility], [address] [id number], [facility] [phone] documented in this encounter Visit Diagnoses Diagnosis Hospital discharge follow-up- Primary Other follow-up examination C. difficile colitis Intestinal infection due to clostridium difficile Type 2 diabetes mellitus without complication, without long-term current use of insulin (H) Tobacco dependence Tobacco use disorder Nausea Nausea alone Postablative hypothyroidism Other postablative hypothyroidism Abnormal electrocardiogram Nonspecific abnormal electrocardiogram (ECG) (EKG) Encounter for long-term opiate analgesic use Encounter for long-term (current) use of other medications Chronic diastolic congestive heart failure (H) Chronic diastolic heart failure documented in this encounter Additional Health Concerns Infection Onset Date Last Indicated Resolved Time C-difficile 10/15/2022 10/27/2022 11/26/2022 11:4 0 PM CDT Assessment Noted Time PHQ-9 Depression Total Score: 10 023 8:26 AM CDT documented as of this encounter Care Teams Manager Of Customer Billing Relationship Specialty [place] [address] [address] PCP - General Family Medicine 05/18/22 Jovany Gonzalez MD [facility] [address] [facility] [address] [place], [place] [address] Orthopedics 02/15/17 Staci Woodward NP [place] [address] [place], [place] [address] Nurse Practitioner Nurse Practitioner Psych/Mental Health 05/10/17 Reanna Smith, RD [facility] [address] [place], [place] [id number] School Superintendent Dietitian, Registered 07/25/19 Roshni Nascimento, RN Personal Advocate & Liaison (PAL) Family Medicine 08/18/20 Kiet Swain MD [address] [place] [address] Referring Physician Psychiatry 09/19/20 Winsome Pike APRN FIRER KILN [facility] [address] [address] Nurse Practitioner Psychiatry 09/19/20 Tori Hines, [facility] [address] [place] [address] Inspector Finishing Inspector Finishing - Clinical 09/19/20 Miranda Queen [facility] [address] [place] [address] Pharmacist Pharmacist 11/12/20 Marisel Armando MD [address] [place], [place] [address] Gastroenterology 02/05/21 Marisel Armando MD [address] [place] [address] 844135 Assigned Gastroenterology Provider 03/08/21 12/24/22 Wesley Barrett MD [address] [facility] [address] [place], [place] [address] Assigned Neuroscience Provider 05/10/21 [place] [address] [place] [address] Assigned PCP 05/15/22 Katiana Read MD [address] [facility] [address] [place] [address] Assigned Endocrinology Provider 06/19/22 [place]e [place] PhD [address] [place] [address] Assigned Behavioral Health Provider 07/03/22 12/31/22 Mary Del Cid, RAFAEL [address] [place] [address] Nurse Practitioner Nurse Practitioner 10/18/22 Elham Stack, [facility] [address] [place] [address] Pharmacist Pharmacist 10/19/22 [place] [address] [facility] [place] [address] Assigned Pain Medication Provider 10/30/22 12/03/22 Michelle Guzman DPM, Podiatry/Foot and Ankle Surgery [address] [place] [address] Assigned Musculoskeletal Provider 10/16/22 04/08/23 documented as of this encounter
--- OUTSIDE RECORDS SUMMARY | 2023-08-03 10:03 | XMS_ITS | Encounter Summary ---
Author Name Unknown Organization [facility] Address [address] [place] [address]. [place] [address] Care Team Providers Care Director Of People Name Role Phone Jovany Gonzalez MD Unavailable CrissyStaci jeong NP Unavailable [phone] Unavailable Roshni Nascimento RN Unavailable Unavailable Kiet Swain MD Unavailable [phone] Winsome Pike APRN SOURCING ASSOCIATE Unavailable [phone] Tori HinesSW Unavailable Miranda Queen [facility] Unavailable Unavailable Marisel Armando MD Unavailable Marisel Armando MD Unavailable Wesley Barrett MD Unavailable [phone] Dyan Fuentes MD Primary Care Provider [phone] Dyan Fuentes MD Unavailable [phone] Katiana Read MD Unavailable [phone] Meme Singleton PhD Unavailable [phone] Deena Garza OUTDOOR FITNESS TRAINER SOURCING ASSOCIATE Unavailable [phone] Mary Del Cid FLOAT OPERATOR Unavailable Elham Stack [facility] Unavailable Thomas Michelle J DPM, Podiatry /Foot and Ankle Surgery Unavailable Reason for Referral * Care Coordination (Routine: Next available opening) - Pending Review Specialty Diagnoses / Procedures Referred By Jose R t Referred To Contact Diagnoses Nausea and vomiting, unspecified vomiting type Melissa Ivan PA-C [address] [place] [address] Referral ID Status Reason Start Date Expiration Date V isits Requested Visits Authorized [id number] Pending Review 10/27/2022 10/27/2023 1 1 Question Answer Reason for Referral: Care Transition Transition: Inpatient to outpatient Clinical Staff have discussed the Care Coordination Referral with the patient and/or caregiver: No Comments Reason for Visit * Reason Comments Nausea, Vomiting, & Diarrhea * Auth/Cert (Routine) Specialty Diagnoses / Procedures Referred By Jose R t Referred To Contact Med Surg Diagnoses Dehydration Nausea and vomiting, unspecified vomiting type Nausea and vomiting, unspecified vomiting type Observation Dept [address] [place] [address] Referral ID Status Reason Start Date Expiration Date Visits Re quested Visits Authorized [id number] 1 1 Encounter Details Date Type Department Care Team (Late st Contact Info) Description 10/26/2022 10:28 AM CDT - 10/28/2022 3:[address] [facility] Observation Dept [address] [place] [address] Dyan Samaniego MD [facility] [address] [place] [address] Marlon Rodriguez MD [address] [place] [address] Pancolitis (H) (Primary Dx); Nausea and vomiting, unspecified vomiting type; Dehydration; Nausea Discharge Disposition: Home or Self Care Social [...] you attend [facility] or [facility]? 1 to 4 times per year 10/16/2021 Do you belong to any clubs o r organizations such as mosque groups, unions, fraternal or athletic groups, or [...] Answer Date Recorded PHQ-2 Score 2 10/25/2022 [facility] of Occupat ional Health - Occupational Stress [...] Sign Reading Time Taken Comments Blood Pressure 154/94 10/28/2022 1:24 PM CDT Pulse 72 10/28/2022 1:24 PM CDT Temperature 36.8 ??C (98.3 ??F) 10/28/2022 1:24 PM CD T Respiratory Rate 20 10/28/2022 1:24 PM CDT Oxygen Saturation 94% 10/28/2022 1:24 PM CDT Inhaled Oxygen Concentration - - Weight 106.1 kg (234 lb) 10/26/2022 2:08 PM CDT Height 172.7 cm (5' 8) 10/26/2022 2:08 PM CDT Body Mass Index 35.58 10/26/2022 2:08 PM CDT documented in this encounter Discharge Summaries * Melissa Ivan PA-C - 10/28/2022 3:23 PM CDT [facility] Hospitalist Discharge Summary Date of Admission: 10/26/2022 Date of Discharge: 10/28/2022 Discharging Provider: Melissa Ivan PA-C Discharge Service: Hospitalist Service Discharge Diagnoses Abdominal pain with non intractable nausea, emesis History of colitis C. Difficile suspected colonization Follow-ups Needed After Discharge Follow-up Appointments Follow-up and recommended labs and tests Follow up with primary care provider, Dyan Fuentes, within 7 days for hospital follow- up. Enteric testing is pending at discharge (bacterial stool infection) will call you Follow-up with GI for biopsy results { Unresulted Labs Ordered in the Past 30 Days of this Admission Date and Time Order Name Status Description 10/28/2022 11:48 AM Surgical Pathology Exam In process 10/26/2022 1:46 PM Enteric Bacteria and Virus Panel by DOMINICK Stool In process These results will be followed up by GI & Hospitalist. 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 ?? Hospitalized at [facility] on 10/17 after presenting for nausea, vomiting, diarrhea and abdominal pain. C. difficile toxin by PCR was positive, C. difficile antigen was positive with negative toxin by enzymeimmunoassay. CT abdomen showed pancolitis.??Was discharged home on vancomycin 125 mg 4 times daily with recommendations for outpatient follow-up with GI.??Returned to ED with reported 10-12 loose stools daily along with up to 10 episodes of vomiting daily. ?? Symptoms have improved. GI was consulted recommending colonoscopy to eval for IBD. Would not recommend treatment for active c diff infection, agree with prior recommendations from ID, Dr. Barger who reviewed her C. difficile testing and the toxin was negative indicating she did not have an active C. difficile infection is colonized. GI was consulted. Her symptoms had largely resolved in the ED. She underwent colonoscopy to rule out other causes of diarrhea. Underwent evaluation 10/26 that showed normal examined portion of the ileum which was biopsied. No evidence of ileitis or colitis. Return home in stable condition. ?? Problem List: Colitis RUQ abdominal pain, different from pain with prior episodes of pancreatitis. No fever, n/v not recurred since in ED and tolerating diet. No hematochezia, hgb stable No leukocytosis. No hematochezia. Benign exam and not re imaged. Prior colonoscopies have been negative per report for IBD. Of note had colonoscopy in 2017 showing large amount of bile salts, is on colestid and fenofibrate outpt, resumed. - c diff, enteric, colonoscopy negative for bacterial infection or acute colitis - tolerating regular diet, symptoms resolved ?? Lactic acidosis??- resolved - Resolved with IV fluids - suspect due to V/D - does not appear septic?? - restart IV fluids AM of 10/28 if having colonoscopy ?? Chronic pain on buprenorphine Chart states history of Medication seeking behaviors Chronic pain neck and back, right hip pain - continue investigation division captain buprenorphine, does report breakthrough abdominal pain - PRN oxycodone was prescribed during the hospital admission patient utilized appropriately and didnot discharge with additional narcotics outside of her prior to admission buprenorphine ?? Type 2 DM - reduce investigation division captain dose 10 units to 5 units for now, until tolerating oral intake - sliding scale insulin - blood sugars 151-215 ?? COPD - not in acute exacerbation ?? 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 HTN HLD - continue investigation division captain??amlodipine, metoprolol,??fenofibrate, colestipol,??Crestor ?? Anxiety -Continue WEBSPHERE ADMINISTRATOR Rexulti, klonopin,??Pristiq,??risperidone ?? Consultations This Hospital Stay GASTROENTEROLOGY IP CONSULT CARE MANAGEMENT / SOCIAL WORK IP CONSULT Code Status Full Code Time Spent on this Encounter I, Melissa Ivan PA-C, personally saw the patient today and spent greater than 30 minutes discharging this patient. Melissa Ivan PA-C Interval History Afebrile. Mild ruq abdominal pain. No nausea, vomiting. Tolerating diet. Eager to return home. Physical Exam Vital Signs: Temp: 98.3 ??F (36.8 ??C) Temp src: Oral BP: (!) 154/94 Pulse: 72 Resp: 20 SpO2: 94 % O2 Device: None (Room air) Weight: 234 lbs 0 oz Constitutional: Awake, alert, no apparent distress Respiratory: Normal work of breathing. Lungs clear to auscultation bilaterally, no crackles or wheezing. Cardiovascular: Regular rate and rhythm, normal S1 and S2, and no murmur appreciated. GI: Bowel sounds present. soft, non-distended, non-tender. Skin/Integument: Warm, dry. no peripheral edema. Neuro: No focal deficits. Moving all extremities with normal strength. Coordination and sensation grossly intact. Speech clear. No focal deficits. Psych: Appropriate affect. Primary Care Physician Dyan Fuentes Discharge Orders Primary Care - Care Coordination Referral Reason for your hospital stay RUQ abdominal pain, different from pain with prior episodes of pancreatitis. No fever, n/v not recurred since in ED and tolerating diet. No hematochezia, hgb stable No leukocytosis. No hematochezia. Benign exam and not re imaged. Prior colonoscopies have been negative per report for IBD. Of note had colonoscopy in 2017 showing large amount of bile salts, is on colestid and fenofibrate outpt, resumed. Colonoscopy without acute colitis. Activity Your activity upon discharge: activity as tolerated and no driving for today Follow-up and recommended labs and tests Follow up with primary care provider, Dyan Fuentes, within 7 days for hospital follow- up. Enteric testing is pending at discharge (bacterial stool infection) will call you Follow-up with GI for biopsy results When to contact your care team Call your primary care doctor if you have any of the following: temperature greater than 101 F, worsening shortness of breath, increased swelling, worsening pain, new or unrelenting diarrhea, or any other concerning symptoms. Call 911 or go to the emergency room if you need immediate assistance. Diet Follow this diet upon discharge: Orders Placed This Encounter Advance Diet as Tolerated: Fully Advanced to diet(s) per Provider order; Low Residue easy to tolerate diet, maybe try 4-6 small meals a day. Consider taking zofran 30 min prior to eating for nausea. Significant Results and Procedures Results for orders placed or performed during the hospital encounter of 10/14/22 CT Abdomen Pelvis w Contrast Narrative EXAM: CT ABDOMEN PELVIS W CONTRAST LOCATION: [facility] DATE/TIME: 10/14/2022 10:45 PM INDICATION: Generalized abdominal pain. History of pancreatitis. COMPARISON: 01/16/2021. TECHNIQUE: CT scan of the abdomen and pelvis was performed following injection of IV contrast. Multiplanar reformats were obtained. Dose reduction techniques were used. CONTRAST: 100 mL Isovue 370 FINDINGS: LOWER CHEST: Normal. HEPATOBILIARY: Diffuse fatty infiltration of the liver. The gallbladder is absent. PANCREAS: A few pancreatic calcifications. No acute pancreatic inflammation. SPLEEN: Normal. ADRENAL GLANDS: Normal. KIDNEYS/BLADDER: There is no hydronephrosis. A few small renal cysts. BOWEL: There is wall thickening of the entire colon as well as the terminal ileum. No bowel obstruction. No free intraperitoneal gas or fluid. LYMPH NODES: Normal. VASCULATURE: Atherosclerotic calcification of the aorta and its branches. No aneurysm. Left upper quadrant varices as seen previously. PELVIC ORGANS: The uterus is absent. There is no adnexal mass. MUSCULOSKELETAL: Degenerative disease in the spine. Impression IMPRESSION: 1. Nonspecific pancolitis. There is also wall thickening of the terminal ileum. No bowel obstruction. 2. Fatty infiltration of the liver. *Note: Due to a large number of results and/or encounters for the requested time period, some results have not been displayed. A complete set of results can be found in Results Review. Discharge Medications Current Discharge Medication List START taking these medications Details simethicone (MYLICON) 80 MG chewable tablet Take 1 tablet (80 mg) by mouth every 6 hours as needed for flatulence or cramping Associated Diagnoses: Pancolitis (H) CONTINUE these medications which have NOT CHANGED Details acetaminophen (TYLENOL) 325 MG tablet Take 3 tablets (975 mg) by mouth every 6 hours as needed for mild pain Associated Diagnoses: Post-op pain albuterol (PROAIR HFA/PROVENTIL HFA/VENTOLIN HFA) 108 (90 [...] tongue 3 times daily OK to fill 09/21/22 start 09/23/22 Qty: 90 Film, Refills: 0 Associated Diagnoses: Chronic pain syndrome calcium carbonate [...] 90 tablet, Refills: 0 Associated Diagnoses: Anxiety EPINEPHrine (ANY BX GENERIC EQUIV) 0.3 MG/0.3ML injection 2-pack Inject 0.3 mLs (0.3 mg) into the muscle as needed for anaphylaxis (EPI-PEN) Qty: 2 each, Refills: 1 Associated Diagnoses: Bee sting allergy fenofibrate (TRICOR) 48 MG tablet Take 1 [...] 1 diabetes mellitus with diabetic neuropathy (H) insulin glargine (BASAGLAR KWIKPEN) 100 UNIT/ML pen Inject 10 Units Subcutaneous every morning Qty: 15 mL, Refills: 1 Comments: If Basaglar is not covered by insurance, may substitute Lantus or Semglee or other insulin glargine product per insurance preference at same dose and frequency. Associated Diagnoses: Type 2 diabetes mellitus without complication, with long- term current use of insulin (H) lactobacillus rhamnosus, GG, (CULTURELL) capsule Take 1 capsule by mouth 2 times daily for 14 days Qty: 28 capsule, Refills: 0 Associated Diagnoses: C. difficile colitis levothyroxine (SYNTHROID/LEVOTHROID) 175 MCG tablet Take 2 tablets (350 mcg) by mouth daily Qty: 180 tablet, Refills: 1 Associated Diagnoses: Postprocedural hypothyroidism Lidocaine (LIDOCARE) 4 % Patch Place onto the skin daily as needed for moderate pain To prevent lidocaine toxicity, patient should be patch free for 12 hrs daily. methocarbamol (ROBAXIN) 500 MG tablet Take 1,000 mg by mouth 4 times daily metoprolol tartrate (LOPRESSOR) 25 MG tablet TAKE 1 TABLET BY MOUTH TWICE A DAY Qty: 180 tablet, Refills: 3 Associated Diagnoses: Benign essential hypertension naloxone (NARCAN) nasal spray [place] 1 spray (4 mg) into one nostril alternating nostrils as needed Qty: 0.2 mL, Refills: 0 Associated Diagnoses: At risk for substance overdose nitroGLYcerin (NITROSTAT) 0.[address] 1 tablet (0.4 mg) under the tongue every 5minutes as needed for chest pain Qty: 25 tablet, Refills: 0 Associated Diagnoses: Chest pain, unspecified type nystatin (MYCOSTATIN) 004256 UNIT/GM external ointment Apply topically 2 times daily as needed omega-3 acid ethyl esters (LOVAZA) 1 g capsule TAKE 2 CAPSULES BY MOUTH TWICE A DAY Qty: 360 capsule, Refills: 1 Associated Diagnoses: Hypertriglyceridemia ondansetron (ZOFRAN ODT) 8 MG ODT tab DISSOLVE 1 TABLET ON THE TONGUE TWICE DAILY NEEDED FOR NAUSEA Qty: 18 tablet, Refills: 1 Comments: DX Code Needed Nausea R11.0 Associated Diagnoses: Nausea pantoprazole (PROTONIX) 40 MG EC tablet Take 1 tablet (40 mg) by mouth daily Qty: 90 tablet, Refills: 3 Associated Diagnoses: Gastroesophageal reflux disease without esophagitis Potassium Gluconate 595 MG CAPS Take 1 capsule by mouth daily Qty: 100 capsule, Refills: 1 Associated Diagnoses: Generalized muscle weakness risperiDONE (RISPERDAL M-TABS) 0.[address] 0.5 mg under the tongue daily rosuvastatin (CRESTOR) 40 MG tablet Take 1 tablet (40 mg) by mouth daily Qty: 90 tablet, Refills: 3 Associated Diagnoses: Hypertriglyceridemia; Hyperlipidemia LDL goal <100 Vitamin D3 (VITAMIN D, CHOLECALCIFEROL,) 25 mcg (1000 units) tablet Take 1 tablet by mouth daily Continuous Blood Gluc Seamless Tube Roller (DEXCOM G6 ESTIMATOR) ANITA USE DAILY Qty: 1 each, Refills: [...] long- term current use of insulin (H) insulin pen needle (31G X 5 MM) 31G X 5 MM miscellaneous Use 1 pen needles daily or as directed. Qty: 100 each, Refills: 0 Associated Diagnoses: Type 2 diabetes mellitus without complication, with long- term current use of insulin (H) !! - Potential duplicate medications found. Please discuss with provider. STOP taking these medications vancomycin (VANCOCIN) 125 MG capsule Comments: Reason for Stopping: Allergies Allergies Allergen Reactions ??? Bees Anaphylaxis ??? Levaquin [Levofloxacin Hemihydrate] Rash ??? Reglan [Metoclopramide Hcl] Hives ??? Droperidol Behavioral changes ??? Nalbuphine Hcl Behavioral changes ??? Nsaids Other reaction(s): gi bleed ??? Phenergan [Promethazine] Other (See Comments) Patient reports she gets mean & jerky Associated attestation - Marlon Rodriguez MD - 11/02/2022 4:04 PM CDT Physician Attestation I have reviewed and discussed with the advanced practice provider their discharge plan for Kaila Hernandez. I did not participate in a shared visit by interviewing or examining the patient andthis should be billed as an advanced practice provider only discharge. Marlon Rodriguez MD Date of Service (when I saw the patient): I did not personally see this patient today. documented in this encounter Medications at Time [...] mg by mouth 2 times daily 0 desvenlafaxine (PRISTIQ) 100 MG 24 hr tabletIndications:Anx [...] mg by mouth 4 times daily 0 nitroGLYcerin (NITROSTAT) 0.4 MG sublingual tabletIndications:Ariadna st pain, unspecified type Place 1 tablet (0.4 mg) under the tongue every 5 minutes as needed for chest pain 25 tablet 0 08/20/2019 nystatin (MYCOSTATIN) 389342 UNIT/GM external ointment Apply topically 2 times daily as needed 0 Potassium Gluconate 595 MG CAPSIndications:Gener alized muscle weakness Take 1 capsule by mouth daily 100 capsule 1 05/06/2021 simethicone (MYLICON) 80 MG chewable tabletIndications:Becerra colitis (H) Take 1 tablet (80 mg) by mouth every 6 hours as needed for flatulence or cramping 0 10/28/2022 Vitamin D3 (VITAMIN D, CHOLECALCIFEROL,) 25 mcg (1000 units) tablet Take 1 tablet by mouth daily 0 Continuous Blood Gluc Seamless Tube Roller (DEXCOM G6 ESTIMATOR) DEVIIndications:Type 2 diabetes mellitus without complication, with long-term current use of insulin (H) USE DAILY 1 each 0 06/15/2022 lactobacillus rhamnosus, GG, (CULTURELL) capsuleIndications:C. difficile colitis Take 1 capsule by mouth 2 times daily for 14 days 28 capsule 0 10/17/2022 10/31/2022 acetaminophen (TYLENOL) 325 MG tabletIndications:Pos t-op pain Take 3 tablets (975 mg) by mouth every 6 hours as needed for mild pain 0 07/15/2022 12/03/2022 albuterol (PROAIR HFA/PROVENTIL HFA/VENTOLIN HFA) 108 (90 Base) MCG/ACT inhalerIndications:Ch ronic obstructive pulmonary disease, unspecified COPD type (H) Inhale 2 puffs into the lungs every 4 hours as needed for shortness of breath / dyspnea or wheezing 8.5 g 0 05/07/2022 05/03/2023 amLODIPine (NORVASC) 10 MG tabletIndications:Edmundo ign essential hypertension Take 1 tablet (10 mg) by mouth daily 90 tablet 3 06/14/2022 05/12/2023 colestipol (COLESTID) 1 g tablet Take 1 tablet by mouth 2 times daily 0 05/12/2023 cyanocobalamin (CYANOCOBALAMIN) 1000 MCG/ML injectionIndications: Vitamin B12 [...] mouth daily 180 tablet 1 06/15/2022 07/14/2023 Lidocaine (LIDOCARE) 4 % Patch Place onto the skin daily as needed for moderate pain To prevent lidocaine toxicity, patient should be patch free for 12 hrs daily. 0 12/03/2022 methocarbamol (ROBAXIN) 500 MG tablet Take 1,000 mg by mouth 4 times daily 0 11/11/2022 metoprolol tartrate (LOPRESSOR) 25 MG tabletIndications:Edmundo ign essential hypertension TAKE 1 TABLET BY MOUTH TWICE A DAY 180 tablet 3 06/14/2022 05/12/2023 naloxone (NARCAN) nasal sprayIndications:At risk for substance overdose [place] 1 spray (4 mg) into one nostril alternating nostrils as needed 0.2 mL 0 11/19/2016 11/11/2022 omega-3 acid ethyl esters (LOVAZA) 1 g capsuleIndications:Hy pertriglyceridemia TAKE 2 CAPSULES BY MOUTH TWICE A DAY 360 capsule 1 04/20/2021 05/12/2023 ondansetron (ZOFRAN ODT) 8 MG ODT tabIndications:Nausea DISSOLVE 1 TABLET ON THE TONGUE TWICE DAILY NEEDED FOR NAUSEA 18 tablet 1 11/17/2021 11/25/2022 pantoprazole (PROTONIX) 40 MG EC tabletIndications:Gas troesophageal reflux disease without esophagitis Take 1 tablet (40 mg) by mouth daily 90 tablet 3 06/14/2022 05/12/2023 risperiDONE (RISPERDAL M-TABS) 0.[address] 0.5 mg under the tongue every morning 0 08/01/2023 rosuvastatin (CRESTOR) 40 MG tabletIndications:Hyp ertriglyceridemia,Hyp erlipidemia LDL goal <100 Take 1 tablet (40 mg) by mouth daily 90 tablet 3 06/14/2022 05/12/2023 Continuous Blood Gluc Sensor (DEXCOM G6 [...] blood glucose. 1 each 3 06/15/2022 07/21/2023 insulin pen needle (31G X 5 MM) 31G X 5 MM miscellaneousIndicati ons:Type 2 diabetes mellitus without complication, with long-term current use of insulin (H) Use 1 pen needles daily or as directed. 100 each 0 12/14/2021 12/03/2022 documented as of this encounter Progress Notes * Melissa Ivan PA-C - 10/27/2022 10:48 AM CDT [facility] Progress Note - Hospitalist Service Date of Admission: 10/26/2022 Assessment & Plan Kaila Hernandez is a 61 year old female with PMhx of chronic pain on buprenorphine, COPD, GERD, anxiety, anemia, DMT2, pancreatitis, remote history of C. difficile statuspost prior fecal transplant, who was re- admitted with abdominal pain, nausea and vomiting on 10/26/2022. Hospitalized at [facility] on 10/17 after presenting for nausea, vomiting, diarrhea and abdominal pain. C. difficile toxin by PCR was positive, C. difficile antigen was positive with negative toxin by enzymeimmunoassay. CT abdomen showed pancolitis. Was discharged home on vancomycin 125 mg 4 times daily with recommendations for outpatient follow-up with GI. Returned to ED with reported 10-12 loose stools daily along with up to 10 episodes of vomiting daily. Symptoms have improved. GI was consulted recommending colonoscopy to eval for IBD. Would not recommend treatment for active c diff infection, agree with prior recommendations from ID, Dr. Barger who reviewed her C. difficile testing and the toxin was negative indicating she did not have an active C. difficile infection is colonized. Colitis RUQ abdominal pain, different from pain with prior episodes of pancreatitis. No fever, n/v not recurred since in ED and tolerating diet. No hematochezia, hgb stable No leukocytosis. No hematochezia. Benign exam and not re imaged. Prior colonoscopies have been negative per report for IBD. Of note had colonoscopy in 2017 showing large amount of bile salts, is on colestid and fenofibrate outpt, resumed. - GI consulted 10/27, anticipated for colonoscopy 10/28 to rule out other causes of diarrhea - Clear liquids today, bowel prep - Enteric panel ordered to be repeated and C. difficile stool study - monitor output - Analgesia: Multimodal plan discussed with patient as she is tolerating p.o. there is not currently indications for IV narcotics. She will be resumed on her buprenorphine and will have p.o. oxycodone available for breakthrough pain despite Tylenol and simethicone. Patient expresses understanding of this plan and acknowledges that it is unlikely she will discharge with additional narcotics outside of her pain contract Lactic acidosis - resolved - Resolved with IV fluids - suspect due to V/D - does not appear septic - restart IV fluids AM of 10/28 if having colonoscopy ?? Chronic pain on buprenorphine Chart states history of Medication seeking behaviors Chronic pain neck and back, right hip pain - continue investigation division captain buprenorphine, does report breakthrough abdominal pain - PRN oxycodone available ?? Type 2 DM - reduce investigation division captain dose 10 units to 5 units for now, until tolerating oral intake - sliding scale insulin - blood sugars 151-215 ?? COPD - not in acute exacerbation ?? 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 HTN HLD - continue investigation division captain amlodipine, metoprolol, fenofibrate, colestipol, Crestor ?? Anxiety -Continue WEBSPHERE ADMINISTRATOR Rexulti, klonopin, Pristiq, risperidone ? Diet: Clear Liquid Diet DVT Prophylaxis: Pneumatic Compression Devices Mello Catheter: Not present Lines: None Cardiac Monitoring: None Code Status: Full Code Clinically Significant Risk Factors Present on Admission # Anion Gap Metabolic Acidosis: Highest Anion Gap = 19 mmol/L in last 2 days, will monitor and treat as appropriate # DMII: A1C = 6.5 % (Ref range: <5.7 %) within past 6 months # Obesity: Estimated body mass index is 35.58 kg/m?? as calculated from the following: Height as of this encounter: 1.727 m (5' 8). Weight as of this encounter: 106.1 kg (234 lb). Disposition Plan Expected Discharge Date: 10/27/2022 The patient's care was discussed with the Attending Physician, Dr. Rodriguez, Bedside Nurse and GI Resort Keeper(s). Melissa Ivan PA-C Hospitalist Service [facility] Securely message with Sravan (more info) Text page via [facility] Paging/Directory Interval History Right upper abdomen pain reports bring her to her knees, rates 8/10, but appears comfortable is conversational and smiling during my interview. No nausea, vomiting. No fever. Tolerating diet. Voiding. No BM since in the ED. She reported an episode of BRBPR with wiping about 1 week ago. No puss orblood in stool previously. Physical Exam Vital Signs: Temp: 98.1 ??F (36.7 ??C) Temp src: Axillary BP: (!) 156/93 Pulse: 78 Resp: 16 SpO2: 94 % O2 Device: None (Room air) Weight: 234 lbs 0 oz Constitutional: Awake, alert, no apparent distress Respiratory: Normal work of breathing. Lungs clear to auscultation bilaterally, no crackles or wheezing. Cardiovascular: Regular rate and rhythm, normal S1 and S2, and no murmur appreciated. GI: Bowel sounds present. soft, non-distended, tender right quadrant, mostly upper. No rebound tenderness or guarding. Skin/Integument: Warm, dry. no peripheral edema. Neuro: No focal deficits. Moving all extremities with normal strength. Coordination and sensation grossly intact. Speech clear. No focal deficits. Psych: Appropriate affect. Medical Decision Making 55 MINUTES SPENT BY ME on the date of service doing chart review, history, exam, documentation & further activities per the note. Data PAST 24 HR DATA REVIEWED [id number]} Associated attestation - Marlon Rodriguez MD - 10/27/2022 2:39 PM CDT Physician Attestation I have reviewed and discussed with the advanced practice provider their history, physical and plan for Kaila Hernandez. I did not participate in a shared visit by interviewing or examining thepatient and this should be billed as an advanced practice provider only visit. Marlon Rodriguez MD Date of Service (when I saw the patient): I did not personally see this patient today. * Jeffry Fajardo MD - 10/26/2022 4:58 PM CDT GI consult received. Stool studies ordered. Full consult in am. documented in this encounter H&P Notes * Danisha Rossi PA-Reji - 10/26/2022 12:21 PM CDT [facility] History and Physical - Hospitalist Service Date of Admission: 10/26/2022 Assessment & Plan Kaila Hernandez is a 61 year old female with PMH recent diagnosis of recurrent C-diff, chronic pain on buprenorphine, COPD, GERD, anxiety, anemia, DMT2, pancreatitis who presents from home with persistent nausea, vomiting, diarrhea since her previous discharge on 10/17. Has been unable to tolerate oral intake. Denies any bloody emesis or diarrhea. Recently discharged from [facility] on 10/17 with thought to be recurrent C. difficile infection and suffering from N/V/D. CT abdomen showed pancolitis. Was discharged home on vancomycin 125 mg 4 times daily with recommendations for outpatient follow-up with GI. Despite being on vancomycin she has continued to have 10-12 loose stools daily along with up to 10 episodes of vomiting daily. States that she needs liquid vancomycin as this works better for her and C. Difficile. N/V/D Hx C. Diff Colitis Recently discharged on 10/17 but thought to be recurrent C. difficile. I spoke with Dr. Barger with infectious disease who reviewed her C. difficile testing and the toxin was negative indicating she did not have an active C. difficile infection. She is colonized with C-Diff. Discontinued her vancomycin. Need to further work-up possible causes of her diarrhea -Enteric panel, would recommend starting Imodium if negative - IVF LR 100 ml/ hr - GI consult given recent pancolitis on imaging, continued diarrhea, negative C- diff, defer to GI if needs repeat abdominal imaging versus scope - discontinued her vancomycin Lactic acidosis - resolved -Resolved with IV fluids - suspect due to V/D - does not appear septic HX chronic pain on buprenorphine Hx Medication seeking behaviors - continue investigation division captain buprenorphine, asking for pain medication upon admission - PRN oxycodone available avoid use if able given her history Type 2 DM - reduce investigation division captain dose 10 units to 5 units for now, until tolerating oral intake - sliding scale insulin COPD - not in acute exacerbation GERD -Continue Protonix HTN HLD - continue investigation division captain amlodipine, metoprolol, fenofibrate, colestipol, Crestor Anxiety -Continue Rexulti, klonopin, Pristiq, risperidone Diet: Clear liquids, ADAT to fulls if tolerated DVT Prophylaxis: Pneumatic Compression Devices Mello Catheter: Not present Lines: None Cardiac Monitoring: None Code Status: full code. Clinically Significant Risk Factors Present on Admission # Anion Gap Metabolic Acidosis: Highest Anion Gap = 19 mmol/L in last 2 days, will monitor and treat as appropriate # DMII: A1C = 6.5 % (Ref range: <5.7 %) within past 6 months # Obesity: Estimated body mass index is 35.58 kg/m?? as calculated from the following: Height as of 10/25/22: 1.727 m (5' 8). Weight as of 10/25/22: 106.1 kg (234 lb). Disposition Plan in 1-2 days Pending GI work up, enteric panel, improvement of N/V/D The patient's care was discussed with the Patient. DANISHA Rossi PA-C Hospitalist Service [facility] Securely message with AFINOS (more info) Text page via [facility] Paging/Directory Chief Complaint Nausea, Vomiting, diarrhea History is obtained from the patient History of Present Illness Kaila Hernandez is a 61 year old female with PMH recent diagnosis of recurrent C-diff, chronic pain on buprenorphine, COPD, GERD, anxiety, anemia, DMT2, pancreatitis who presents from home with persistent nausea, vomiting, diarrhea since her previous discharge on 10/17. Has been unable to tolerate oral intake. Denies any bloody emesis or diarrhea. Recently discharged from [facility] on 10/17 with thought to be recurrent C. difficile infection. Was discharged home on vancomycin 125 mg 4 times daily with recommendations for outpatient follow-up with GI. Despite being on vancomycin she has continued to have 10-12 loose stools daily along with up to 10 episodes of vomiting daily. States that she needs liquid vancomycin as this works better for herand C. Difficile. In the ED, afebrile, blood pressure 168/96, respirations 22, pulse initially 110 down to 91. BMP shows an anion gap of 17, glucose 226, lactic acid 2.8. CBC is unremarkable. Received 2 L of fluids inthe ED. Past Medical History Past Medical History: Diagnosis [...] ANKLE ARTHROSCOPY; Surgeon: Jovany Gonzalez MD; Location: [facility] Main OR;Service: ??? BACK SURGERY Lumbar [...] FIBULAR FRACTURE; Surgeon: Jovany Gonzalez MD; Location: [facility] OR; Service: ??? rectocele and cystocel repairs ??? REMOVE HARDWARE LOWER EXTREMITY Right 12/13/2017 Procedure: REMOVAL OF SYNDESMOSIS SCREWS, SUHAS; Surgeon: Jovany Gonzalez MD; Location: [facility] Main OR; Service: ??? REPAIR RECTOCELE ??? TONSILLECTOMY ??? ZZC NONSPECIFIC PROCEDURE 06/2001 Colonoscopy - neg -- abstracted 12/26/01 Prior to Admission Medications Prior to Admission Medications Prescriptions Last Dose Informant Patient Reported? Taking? Continuous Blood Gluc Seamless Tube Roller (DEXCOM G6 ESTIMATOR) ANITA No No Sig: USE DAILY Continuous Blood Gluc Sensor (DEXCOM G6 SENSOR) [facility] No No Sig: USE 1 SENSOR EVERY 10 DAYS Continuous Blood Gluc Transmit (DEXCOM G6 TRANSMITTER) [facility] No No Sig: Change every 3 months to continuously monitor blood glucose. EPINEPHrine (ANY BX GENERIC EQUIV) 0.3 MG/0.3ML injection 2-pack No No Sig: Inject 0.3 mLs (0.3 mg) into the muscle as needed for anaphylaxis (EPI-PEN) Lidocaine (LIDOCARE) 4 % Patch No No Sig: Place 1 patch onto the skin every 24 hours To prevent lidocaine toxicity, patient should be patch free for 12 hrs daily. Potassium Gluconate 595 MG CAPS Yes No Sig: Take 1 capsule by mouth daily acetaminophen (TYLENOL) 325 MG tablet Yes No Sig: Take 3 tablets (975 mg) by mouth every 6 hours as needed for mild pain albuterol (PROAIR HFA/PROVENTIL HFA/VENTOLIN HFA) 108 (90 Base) MCG/ACT inhaler No No Sig: Inhale 2 puffs into the lungs every 4 hours as needed for shortness of breath / dyspnea or wheezing amLODIPine (NORVASC) 10 MG tablet No No Sig: Take 1 tablet (10 mg) by mouth daily brexpiprazole (REXULTI) 2 MG tablet Yes No Sig: Take 2 mg by mouth daily buprenorphine HCl-naloxone HCl (SUBOXONE) 2-0.5 MG per film No No Sig: Place 1 Film under the tongue 3 times daily OK to fill 09/21/22 start 09/23/22 calcium carbonate (OS-ALISA) 1500 (600 Ca) MG tablet Yes No Sig: Take 1 tablet (600 mg) by mouth 2 times daily (with meals) chlorhexidine (PERIDEX) 0.12 % solution Yes No Sig: Take 15 mLs by mouth daily as needed clonazePAM (KLONOPIN) 1 MG tablet Yes No Sig: Take 1 mg by mouth 2 times daily colestipol (COLESTID) 1 g tablet Pharmacy Yes No Sig: Take 1 tablet by mouth 2 times daily cyanocobalamin (CYANOCOBALAMIN) 1000 MCG/ML injection No No Sig: INJECT 1 ML (1000 MCG) INTRAMUSCULARLY EVERY 30 DAYS. DISCARD 28 DAYS AFTERFIRST USE Strength:1,000 mcg/mL desvenlafaxine (PRISTIQ) 100 MG 24 hr tablet No No Sig: TAKE 1 TABLET BY MOUTH EVERY DAY desvenlafaxine (PRISTIQ) 50 MG 24 hr tablet No No Sig: TAKE 1 TABLET BY MOUTH ONCE DAILY TAKE WITH 100MG TABS FOR A TOTAL DAILY DOSE OF 150MGS fenofibrate (TRICOR) 48 MG tablet No No Sig: Take 1 tablet (48 mg) by mouth daily ferrous sulfate (FEROSUL) 325 (65 Fe) MG tablet Yes No Sig: Take 2 tablets (650 mg) by mouth daily (with breakfast) hydrOXYzine (ATARAX) 25 MG tablet No No Sig: TAKE 1 TABLET (25 MG) BY MOUTH EVERY 6 HOURS NEEDED FOR ANXIETY OR PAIN ADJUVANT. insulin aspart (NOVOLOG FLEXPEN) 100 UNIT/ML pen No No Sig: INJECT 1 UNIT FOR 50 POINTS ABOVE 150 WITH EACH MEAL (TOTAL DAILY DOSE 10- 15 UNITS PER DAY) insulin glargine (BASAGLAR KWIKPEN) 100 UNIT/ML pen No No Sig: Inject 10 Units Subcutaneous every morning insulin pen needle (31G X 5 MM) 31G X 5 MM miscellaneous No No Sig: Use 1 pen needles daily or as directed. lactobacillus rhamnosus, GG, (CULTURELL) capsule No No Sig: Take 1 capsule by mouth 2 times daily for 14 days levothyroxine (SYNTHROID/LEVOTHROID) 175 MCG tablet No No Sig: Take 2 tablets (350 mcg) by mouth daily menthol (ICY HOT) 5 % [facility] No No Sig: Apply 1 patch topically every 8 hours as needed for muscle soreness methocarbamol (ROBAXIN) 500 MG tablet No No Sig: Take 1-2 tablets (500-1,000 mg) by mouth 4 times daily as needed for muscle spasms metoprolol tartrate (LOPRESSOR) 25 MG tablet No No Sig: TAKE 1 TABLET BY MOUTH TWICE A DAY naloxone (NARCAN) nasal spray Pharmacy No No Sig: [place] 1 spray (4 mg) into one nostril alternating nostrils as needed nitroGLYcerin (NITROSTAT) 0.4 MG sublingual tablet Self No No Sig: Place 1 tablet (0.4 mg) under the tongue every 5 minutes as needed for chest pain nystatin (MYCOSTATIN) 857187 UNIT/GM external ointment No No Sig: Apply topically 2 times daily Patient taking differently: Apply topically 2 times daily as needed omega-3 acid ethyl esters (LOVAZA) 1 g capsule No No Sig: TAKE 2 CAPSULES BY MOUTH TWICE A DAY ondansetron (ZOFRAN ODT) 8 MG ODT tab No No Sig: DISSOLVE 1 TABLET ON THE TONGUE TWICE DAILY NEEDED FOR NAUSEA pantoprazole (PROTONIX) 40 MG EC tablet No No Sig: Take 1 tablet (40 mg) by mouth daily risperiDONE (RISPERDAL M-TABS) 0.5 MG ODT No No Sig: Take 2 tablets (1 mg) by mouth daily rosuvastatin (CRESTOR) 40 MG tablet No No Sig: Take 1 tablet (40 mg) by mouth daily vancomycin (VANCOCIN) 125 MG capsule No No Sig: Take 1 capsule (125 mg) by mouth 4 times daily for 14 days vitamin D3 (CHOLECALCIFEROL) 1.25 MG (85015 UT) capsule Yes No Sig: Take 50,000 Units by mouth every 7 days Mondays Facility-Administered Medications: None Social History I have reviewed this patient's social history and updated it with pertinent information if needed. Social History Tobacco Use ??? Smoking status: Every Day Packs/day: 1.00 Years: 50.00 Pack years: 50.00 Types: Cigarettes ??? Smokeless tobacco: Never ??? Tobacco comments: down to 4 cigs per day. Quitting 3/27/22 Vaping Use ??? Vaping status: Every Day Substances: CBD Substance Use Topics ??? Alcohol use: Not Currently ??? Drug use: No Comment: marijuana in high school Allergies Allergies Allergen Reactions ??? Bees Anaphylaxis ??? Levaquin [Levofloxacin Hemihydrate] Rash ??? Reglan [Metoclopramide Hcl] Hives ??? Droperidol Behavioral changes ??? Nalbuphine Hcl Behavioral changes ??? Phenergan [Promethazine] Other (See Comments) Patient reports she gets mean & jerky Physical Exam Vital Signs: Temp: 98.8 ??F (37.1 ??C) Temp src: Temporal BP: (!) 168/96 Pulse: 91 Resp: 22 Weight: 0 lbs 0 oz GENERAL: Alert, Comfortable, No acute distress. Laying in bed. PSYCH: pleasant, oriented. HEENT: Normocephalic, No scleral icterus or conjunctival injection, normal hearing, oral mucosa moist HEART: Normal S1, S2 with a murmur, RRR LUNGS: Normal Respiratory effort. Crackles in the bases bilaterally. ABDOMEN: Soft, diffuse tenderness, non distended. No peritoneal signs. EXTREMITIES: No pedal edema, No cyanosis. SKIN: Warm, dry to touch. NEUROLOGIC: Speech clear, alert & orientated x 4, no focal deficits. Medical Decision Making MANAGEMENT DISCUSSED with the following over the past 24 hours: patient, nurse NOTE(S)/MEDICAL RECORDS REVIEWED over the past 24 hours: labs, imaging, progress notes Data I have personally reviewed the following data over the past 24 hrs: 5.4 \ 13.8 / 250 142 100 8.4 / 226 (H) 3.6 25 0.90 \ Procal: N/A CRP: N/A Lactic Acid: 1.2 Imaging results reviewed over the past 24 hrs: No results found for this or any previous visit (from the past 24 hour(s)). Associated attestation - Marlon Rodriguez MD - 10/27/2022 2:41 PM CDT Physician Attestation I have reviewed and discussed with the advanced practice provider their history, physical and plan for Kaila K Rob Hernandez. I did not participate in a shared visit by interviewing or examining thepatient and this should be billed as an advanced practice provider only visit. Marlon Rodriguez MD Date of Service (when I saw the patient): I did not personally see this patient today. documented in this encounter Consult Notes * Yojana Ramirez MSW - 10/27/2022 11:37 AM CDTAssociated Order(s): CARE MANAGEMENT / SOCIAL WORK IP CONSULT Care Management Note Discharge Disposition: Home Discharge Transportation: Family or friend Private pay costs discussed: Not applicable Patient/Family in Agreement with the Plan: Yes Handoff Referral Completed: Yes Additional Information: Patient was identified as an elevated unplanned readmission risk. Patient was admitted under observation status for nausea and vomiting. C-diff positive. Enteric pending. Patient lives at home with spouse. No CC/SW needs identified this admission. Anticipated discharge to home when medically stable. GARCIA More, [facility] Inpatient Care Coordination [facility] [phone] * Jessica Greenfield PA-C - 10/27/2022 10:20 AM CDTAssociated Order(s): GASTROENTEROLOGY IP CONSULT [facility] Gastroenterology Consultation Kaila Hernandez [address] [place] [id number] 61 year old female Admission Date/Time: 10/26/2022 Primary Care Provider: Dyan Fuentes We were asked to see the patient in consultation by Danisha Rossi PA-C for evaluation of ongoing diarrhea, history of C. Diff. HPI: Kaila Hernandez is a 61 year old female who has a history of recurrent C. Difficile (s/p fecal transplant), chronic pain on buprenorphine, COPD, GERD, anxiety, anemia, diabetes type 2, pancreatitis, recent hospitalization from 10/14-10/17 regarding nausea, vomiting, abdominal pain thought to be due to recurrent C. Difficile. At that time, patient was sent home with 125 mg oral vancomycin x2 weeks but unfortunately has had continued to have vomiting and diarrhea. Patient first had C. Diff about 20 years ago, per patient's report she has had about 20 episodes ofC. Diff in total. Patient had fecal transplant about 6 years ago with [facility]. Since that time, her episodes of C. Diff have lessened- her last episode about 4 years ago. Her current symptoms are very similar to her past C. Diff episodes. She has had oral and liquid vancomycin in the past- has not trie d Dificid. Today, she has had decrease in both n/v and diarrhea. Still with right sided abdominal pain. During her last hospitalization, patient had positive C. difficile toxin B, positive C. difficile GDH but negative C. difficile toxin. The hospital provider did speak to Dr. Barger from infectious disease who reviewed her C. difficile testing. Since toxin was negative, this indicated that she did not have any active C. difficile infection but rather is colonized with C. difficile. Patient's vancomycin has been discontinued this hospitalization. GI has been consulted to evaluate for other causesof diarrhea. Patient had CT scan on 10/14 showing nonspecific pancolitis with also wall thickening in the terminalileum, without bowel obstruction. This also showed with fatty liver. On this admission, BMP is unremarkable. CBC is also unremarkable. Lactic acid initally elevated but on recheck in normal limits. Patient's last colonoscopy was in 2016. This showed a large amount of bile noted in the colon (endoscopist question bile acid diarrhea in addition to C. Difficile), otherwise unremarkable. Patient notes a robust family history of IBD- both Crohn's and UC in first and second degree familymembers. + tobacco use but is trying to quit. Rare etoh use. No NSAIDs. ROS: A comprehensive ten point review of systems was negative aside from those in mentioned in the HPI. MEDICATIONS: No current facility-administered medications on file prior to encounter. acetaminophen (TYLENOL) 325 MG tablet, Take 3 tablets (975 mg) by mouth every 6 hours as needed formild pain albuterol (PROAIR HFA/PROVENTIL HFA/VENTOLIN HFA) 108 (90 Base) MCG/ACT inhaler, Inhale 2 puffs into the lungs every 4 hours as needed for shortness of breath / dyspnea or wheezing amLODIPine (NORVASC) 10 MG tablet, Take 1 tablet (10 mg) by mouth daily aspirin 81 MG EC tablet, Take 81 mg by mouth daily brexpiprazole (REXULTI) 2 MG tablet, Take 2 mg by mouth daily buprenorphine HCl-naloxone HCl (SUBOXONE) 2-0.5 MG per film, Place 1 Film under the tongue 3 times daily OK to fill 09/21/22 start 09/23/22 calcium carbonate (OS-ALISA) 1500 (600 Ca) MG tablet, Take 1 tablet (600 mg) by mouth 2 times daily (with meals) clonazePAM (KLONOPIN) 1 MG tablet, Take 1 mg by mouth 2 times daily colestipol (COLESTID) 1 g tablet, Take 1 tablet by mouth 2 times daily cyanocobalamin (CYANOCOBALAMIN) 1000 MCG/ML injection, INJECT 1 ML (1000 MCG) INTRAMUSCULARLY EVERY30 DAYS. DISCARD 28 DAYS AFTERFIRST USE Strength: 1,000 mcg/mL desvenlafaxine (PRISTIQ) 100 MG 24 hr tablet, TAKE 1 TABLET BY MOUTH EVERY DAY desvenlafaxine (PRISTIQ) 50 MG 24 hr tablet, TAKE 1 TABLET BY MOUTH ONCE DAILY TAKE WITH 100MG TABSFOR A TOTAL DAILY DOSE OF 150MGS EPINEPHrine (ANY BX GENERIC EQUIV) 0.3 MG/0.3ML injection 2-pack, Inject 0.3 mLs (0.3 mg) into the muscle as needed for anaphylaxis (EPI-PEN) fenofibrate (TRICOR) 48 MG tablet, Take 1 tablet (48 mg) by mouth daily ferrous sulfate (FEROSUL) 325 (65 Fe) MG tablet, Take 325 mg by mouth daily (with breakfast) hydrOXYzine (ATARAX) 25 MG tablet, Take 25 mg by mouth 4 times daily insulin aspart (NOVOLOG FLEXPEN) 100 UNIT/ML pen, INJECT 1 UNIT FOR 50 POINTS ABOVE 150 WITH EACH MEAL (TOTAL DAILY DOSE 10-15 UNITS PER DAY) insulin glargine (BASAGLAR KWIKPEN) 100 UNIT/ML pen, Inject 10 Units Subcutaneous every morning lactobacillus rhamnosus, GG, (CULTURELL) capsule, Take 1 capsule by mouth 2 times daily for 14 days levothyroxine (SYNTHROID/LEVOTHROID) 175 MCG tablet, Take 2 tablets (350 mcg) by mouth daily Lidocaine (LIDOCARE) 4 % Patch, Place onto the skin daily as needed for moderate pain To prevent lidocaine toxicity, patient should be patch free for 12 hrs daily. methocarbamol (ROBAXIN) 500 MG tablet, Take 1,000 mg by mouth 4 times daily metoprolol tartrate (LOPRESSOR) 25 MG tablet, TAKE 1 TABLET BY MOUTH TWICE A DAY naloxone (NARCAN) nasal spray, [place] 1 spray (4 mg) into one nostril alternating nostrils as needed nitroGLYcerin (NITROSTAT) 0.[address] tablet, [address] 1 tablet (0.4 mg) under the tongue every 5 minutes as needed for chest pain nystatin (MYCOSTATIN) 926792 UNIT/GM external ointment, Apply topically 2 times daily as needed omega-3 acid ethyl esters (LOVAZA) 1 g capsule, TAKE 2 CAPSULES BY MOUTH TWICE A DAY ondansetron (ZOFRAN ODT) 8 MG ODT tab, DISSOLVE 1 TABLET ON THE TONGUE TWICE DAILY NEEDED FOR NAUSEA pantoprazole (PROTONIX) 40 MG EC tablet, Take 1 tablet (40 mg) by mouth daily Potassium Gluconate 595 MG CAPS, Take 1 capsule by mouth daily risperiDONE (RISPERDAL M-TABS) 0.5 MG ODT, Place 0.5 mg under the tongue daily rosuvastatin (CRESTOR) 40 MG tablet, Take 1 tablet (40 mg) by mouth daily vancomycin (VANCOCIN) 125 MG capsule, Take 1 capsule (125 mg) by mouth 4 times daily for 14 days Vitamin D3 (VITAMIN D, CHOLECALCIFEROL,) 25 mcg (1000 units) tablet, Take 1 tablet by mouth daily Continuous Blood Gluc Seamless Tube Roller (DEXCOM G6 ESTIMATOR) ANITA, USE DAILY Continuous Blood Gluc Sensor (DEXCOM G6 SENSOR) MIS, USE 1 SENSOR EVERY 10 DAYS Continuous Blood Gluc Transmit (DEXCOM G6 TRANSMITTER) [facility], Change every 3 months to continuously monitor blood glucose. insulin pen needle (31G X 5 MM) 31G X 5 MM miscellaneous, Use 1 pen needles daily or as directed. ALLERGIES: Allergies Allergen Reactions ??? Bees Anaphylaxis ??? Levaquin [Levofloxacin Hemihydrate] Rash ??? Reglan [Metoclopramide Hcl] Hives ??? Droperidol Behavioral changes ??? Nalbuphine Hcl Behavioral changes ??? Phenergan [Promethazine] Other (See Comments) Patient reports she gets mean & jerky Past Medical History: Diagnosis Date ??? Anemia [...] ANKLE ARTHROSCOPY; Surgeon: Jovany Gonzalez MD; Location: [facility];Service: ??? BACK SURGERY Lumbar and cervical ??? [...] FIBULAR FRACTURE; Surgeon: Jovany Gonzalez MD; Location: [facility]; Service: ??? rectocele and cystocel repairs ??? REMOVE HARDWARE LOWER EXTREMITY Right 12/13/2017 Procedure: REMOVAL OF SYNDESMOSIS SCREWS, SUHAS; Surgeon: Jovany Gonzalez MD; Location: [facility] OR; Service: ??? REPAIR RECTOCELE ??? TONSILLECTOMY ??? ZZC NONSPECIFIC PROCEDURE 06/2001 Colonoscopy - neg -- abstracted 12/26/01 SOCIAL HISTORY: Social History Tobacco Use ??? Smoking status: Every Day Packs/day: 1.00 Years: 50.00 Pack years: 50.00 Types: Cigarettes ??? Smokeless tobacco: Never ??? Tobacco comments: down to 4 cigs per day. Quitting 10/04/21 Vaping Use ??? Vaping status: Every Day Substances: CBD Substance Use Topics ??? Alcohol use: Not Currently ??? Drug use: No Comment: marijuana in high school FAMILY HISTORY: Family History Problem Relation Age of Onset ??? Colon Cancer Mother ??? Other - See Comments Father murdered ??? Liver Disease Father ??? Substance Abuse Father ??? Substance Abuse Sister ??? Substance Abuse Sister PHYSICAL EXAM: BP (!) 156/93 (BP Location: Right arm) Pulse 78 Temp 98.1 ??F (36.7 ??C) (Axillary) Resp 16 Ht 1.727 m (5' 8) Wt 106.1 kg (234 lb) LMP (LMP Unknown) SpO2 94% BMI 35.58 kg/m?? Constitutional: NAD, comfortable, laying in bed. Cardiovascular: RRR, normal S1 and S2 Respiratory: CTAB Psychiatric: mentation appears normal and affect normal Head: Normocephalic. Atraumatic. Eyes: no icterus ENT: Hearing adequate Abdomen: Soft, non-distended, tender over the right abdomen, +BS NEURO: grossly negative SKIN: no suspicious lesions or rashes ADDITIONAL COMMENTS: I reviewed the patient's new clinical lab test results. Recent Labs Lab Test 10/26/22 1022 10/25/22 1608 10/16/22 0706 11/10/21 0748 10/17/21 1044 05/19/21 0546 05/18/21 0621 05/11/21 1328 WBC 5.4 4.7 3.5* < > -- < > 5.1 5.1 HGB 13.8 13.6 11.3* < > -- < > 11.8 12.5 MCV 98 95 95 < > -- < > 102* 100 PLT 250 285 84* < > -- < > 132* 153 INR -- -- -- -- 1.05 -- 0.94 0.89 < > = values in this interval not displayed. Recent Labs Lab Test 10/27/22 0634 10/27/22 0606 10/27/22 0153 10/26/22 1650 10/26/22 1022 10/25/22 1608 NA 141 -- -- -- 142 140 POTASSIUM 3.8 -- -- -- 3.6 4.0 CHLORIDE 106 -- -- -- 100 98 CO2 23 -- -- -- 25 23 BUN 4.5* -- -- -- 8.4 13.1 CR 0.86 -- -- -- 0.90 0.91 ANIONGAP 12 -- -- -- 17* 19* ALISA 8.4* -- -- -- 8.9 8.7* GLC 155* 151* 170* < > 226* 170* < > = values in this interval not displayed. Recent Labs Lab Test 10/15/22 0753 10/14/22 2330 10/14/22 2104 06/12/22 1628 11/16/21 0641 11/15/21 1844 07/17/21 1608 07/06/21 1619 06/16/21 1343 03/06/21 1253 02/09/21 1425 01/17/21 0620 01/16/21 2107 01/16/21 1536 01/16/21 1253 10/29/20 1242 10/28/20 0803 03/15/18 1411 03/15/18 1410 11/09/15 1032 11/09/15 0900 ALBUMIN 3.7 -- 4.0 3.9 < > -- -- < > 3.2* < > 3.4 < > -- -- 3.1* < > 3.1* < > 3.2* < > -- BILITOTAL 0.6 -- 0.4 0.3 < > -- -- < > 0.4 < > 0.4 < > -- -- 2.6* < >0.6 < > 0.3 < > -- DBIL -- -- -- -- -- -- -- -- <0.1 -- 0.2 -- 1.8* -- -- < > -- < > -- < > -- ALT 20 -- 25 25 < > -- -- < > 14 < > 38 < > -- -- 95* < > 134* < > 83* < > -- AST 44* -- 56* 34 < > -- -- < > 15 < > 37 < > -- -- 317* < > 355* < > 432* < > -- ALKPHOS 199* -- 245* 95 < > -- -- < > 84 < > 151* < > -- -- 340* < > 250* < > 219* < > -- PROTEIN -- 70* -- -- -- 10* Negative < > -- < > Negative -- -- < > -- < > -- < > -- < > -- LIPASE -- -- 17 -- -- -- -- -- -- -- -- -- -- -- 136 -- 901* < > 108 < > 414* AMYLASE -- -- -- -- -- -- -- -- -- -- -- -- -- -- -- -- -- -- 7* -- 46 < > = values in this interval not displayed. CT a/p 10/14/22: IMPRESSION: 1. Nonspecific pancolitis. There is also wall thickening of the terminal ileum. No bowel obstruction. 2. Fatty infiltration of the liver. CONSULTATION ASSESSMENT AND PLAN: Principal Problem: Nausea and vomiting, unspecified vomiting type Diarrhea Assessment: This 61-year-old female with history of recurrent C. difficile (s/p fecal transplant), chronic pain on buprenorphine, COPD, GERD, anxiety, anemia, DM type II, pancreatitis who was recently hospitalized from 10/14 to 10/17 regarding nausea, vomiting, diarrhea. Patient at that time was thought to have recurrent C. difficile and was sent home on vancomycin 125 mg x 2 weeks. On 10/15 patient had positive toxin B and GDH but negative toxin. This has been discussed with infectious disease who notes that she would not have active infection but rather colonization. Vancomycin has been discontinued. CT scan 10/14 with pancolitis and inflammation in terminal ileum. GI has been consulted to consider other possible causes of diarrhea. My main concern would be inflammatory bowel disease given the CT scan findings of pancolitis and inflammation in the terminal ileum as well as robust family history of IBD. Patient does have repeat C. difficile studies and enteric pathogen panel pending, this is still a consideration. Would like toproceed with colonoscopy with TI exam on 10/28 for further evaluation. Plan: -- Clear liquids today, NPO at midnight -- Start bowel prep this afternoon--this has been ordered -- Colonoscopy with TI exam on 10/28 -- Awaiting enteric pathogen panel and C. difficile stool study I discussed the patient's findings and plan with Dr. Fajardo, GI staff. 50 minutes spent on patient care including chart review, patient visit, documentation, coordination. Jessica Greenfield, [facility] Office: [phone] call if needed after 5PM , not available after 5PM at this number Associated attestation - Jeffry Fajardo MD - 10/27/2022 3:09 PM CDT Images from the original note were not included. Gastroenterology Consult in Conjunction with Advanced Practice Provider The patient was seen and evaluated in conjunction with the mid-level provider. Please see their note for details. All labs and imaging studies have been reviewed. Objective Patient is a 61-year-old female with a history of recurrent C. difficile colitis. Recently hospitalized with positive C. difficile but negative toxin except by PCR. She did not respond to vancomycin.CT showed colitis and inflammation of the terminal ileum. Vitals Blood pressure 123/74, pulse 62, temperature 98.2 ??F (36.8 ??C), temperature source Oral, resp. rate 18, height 1.727 m (5' 8), weight 106.1 kg (234 lb), SpO2 94 %, not currently . Physical Exam General: awake, alert, oriented times three Cardiovascular: RRR, no edema Chest: lungs are clear to auscultation bilaterally Neurologic: grossly intact, moves all four extremities Laboratory Electrolytes Recent Labs Lab 10/27/22 1248 10/27/22 0634 10/27/22 0606 10/26/22 1650 10/26/22 1022 10/25/22 1608 NA -- 141 -- -- 142 140 POTASSIUM -- 3.8 -- -- 3.6 4.0 CHLORIDE -- 106 -- -- 100 98 CO2 -- 23 -- -- 25 23 GLC 164* 155* 151* < > 226* 170* CR -- 0.86 -- -- 0.90 0.91 BUN -- 4.5* -- -- 8.4 13.1 < > = values in this interval not displayed. Hematology Recent Labs Lab 10/26/22 1022 10/25/22 1608 HGB 13.8 13.6 MCV 98 95 WBC 5.4 4.7 PLT 250 285 LFTs & Lipase Recent Labs Lab 10/27/22 0634 LIPASE 17 I have reviewed the current diagnostic and laboratory tests. Impression and Plan Colitis on recent CT with diarrhea. C. difficile testing is equivocal. Concerned that it could possibly be other causes such as inflammatory bowel disease. I would agree with colonoscopy with terminal ileal intubation. We will plan on performing random colon biopsies even if all looks normal. All of this was discussed with the patient. 20 minutes of total time was spent providing patient care including patient evaluation, reviewing documentation/test results, and order processing specialist. Jeffry Fajardo MD Thank you for the opportunity to participate in the care of this patient. Please feel free to call me with any questions or concerns. Phone number . documented in this encounter ED Notes * Davina Sahu RN - 10/26/2022 12:33 PM CDT [facility] ED Nurse Handoff Report Kaila Hernandez is a 61 year old female ED Chief complaint: Nausea, Vomiting, & Diarrhea . ED Diagnosis: Final diagnoses: Nausea and vomiting, unspecified vomiting type Allergies: Allergies Allergen Reactions ??? Bees Anaphylaxis ??? Levaquin [Levofloxacin Hemihydrate] Rash ??? Reglan [Metoclopramide Hcl] Hives ??? Droperidol ??? Nalbuphine Hcl ??? Phenergan [Promethazine] Other (See Comments) Patient reports she gets mean & jerky Code Status: Full Code Activity level - Baseline/Home: Independent. Activity Level - Current: Stand by Assist. Lift room needed: No. Bariatric: No Vertical Mill Operator Needed: No Isolation: Yes. Infection: C-Diff (Clostridium Difficile) diagnosis. Vital Signs: Vitals: 10/26/22 1043 10/26/22 1158 10/26/22 1200 10/26/22 1210 BP: (!) 168/96 (!) 151/89 Pulse: 91 83 Resp: Temp: TempSrc: SpO2: 94% 100% Cardiac Rhythm: , Pain level: Patient confused: No. Patient Falls Risk: Yes. Elimination Status: Has voided Patient Report - Initial Complaint: Arrives with complaints of abdominal pain and N/V/D, reports being diagnosed with C-diff one week ago and was improving but now symptoms have returned. Alert and oriented, ABCs intact.. Focused Assessment: Tests Performed: Abnormal Labs Resulted from Time of ED Arrival to Time of ED Departure BASIC METABOLIC PANEL - Abnormal Result Value Sodium 142 Potassium 3.6 Chloride 100 Carbon Dioxide (CO2) 25 Anion Gap 17 (*) Urea Nitrogen 8.4 Creatinine 0.90 Calcium 8.9 Glucose 226 (*) GFR Estimate 72 CBC WITH PLATELETS AND DIFFERENTIAL - Abnormal WBC Count 5.4 RBC Count 4.39 Hemoglobin 13.8 Hematocrit 42.8 MCV 98 MCH 31.4 MCHC 32.2 RDW 16.1 (*) Platelet Count 250 % Neutrophils 47 % Lymphocytes 42 % Monocytes 9 % Eosinophils 0 % Basophils 1 % Immature Granulocytes 1 NRBCs per 100 WBC 0 Absolute Neutrophils 2.6 Absolute Lymphocytes 2.3 Absolute Monocytes 0.5 Absolute Eosinophils 0.0 Absolute Basophils 0.1 Absolute Immature Granulocytes 0.0 Absolute NRBCs 0.0 LACTIC ACID WHOLE BLOOD - Abnormal Lactic Acid 2.8 (*) No orders to display . Abnormal Results: . Treatments provided: fluid, Ativan, Tylenol Family Comments: OBS brochure/video discussed/provided to patient: N/A ED Medications: Medications 0.9% sodium chloride BOLUS (1,000 mLs Intravenous $New Bag 10/26/22 1211) 0.9% sodium chloride BOLUS (0 mLs Intravenous Stopped 10/26/22 1130) acetaminophen (TYLENOL) tablet 975 mg (975 mg Oral $Given 10/26/22 1154) LORazepam (ATIVAN) injection 0.5 mg (0.5 mg Intravenous $Given 10/26/22 1155) Drips infusing: No For the majority of the shift, the patient's behavior Green. Interventions performed were . Sepsis treatment initiated: No Patient tested for COVID 19 prior to admission: NO ED Nurse Name/Phone Number: Jac Christi Soriano, RN, 12:33 PM RECEIVING UNIT ED HANDOFF REVIEW Above ED Nurse Handoff Report was reviewed: Yes Reviewed by: Davina Sahu RN on October 26, 2022 at 1:33 PM * Caty Cardoza RN - 10/26/2022 8:44 AM CDT Arrives with complaints of abdominal pain and N/V/D, reports being diagnosed with C-diff one week ago and was improving but now symptoms have returned. Alert and oriented, ABCs intact. Triage Assessment Row Name 10/26/22 0844 Triage Assessment (Adult) Airway WDL WDL Respiratory WDL Respiratory WDL WDL Skin Circulation/Temperature WDL Skin Circulation/Temperature WDL WDL Cardiac WDL Cardiac WDL X;all Pulse Rate & Regularity tachycardic Peripheral/Neurovascular WDL Peripheral Neurovascular WDL WDL Cognitive/Neuro/Behavioral WDL Cognitive/Neuro/Behavioral WDL WDL * Dyan Samaniego MD - 10/26/2022 8:32 AM CDT History Chief Complaint: Nausea, Vomiting, & Diarrhea HPI Kaila Hernandez is a 61 year old female with a history of cdif who presents with diarrhea, nausea, vomiting. Patient reports about a week and a half ago that they are diagnosed with C. difficile infection. Patient was discharged from the hospital and was feeling better until 2 days ago when she had worsening of her nausea, vomiting and ongoing diarrhea. No black or bloody stools. She reports that the abdominal pain has been consistent with her C. difficile infection and is not new or different. No known fevers. Not able to eat or drink well. Not able to tolerate her oral medications. 5years previously she has had numerous episodes of recurrent C. difficile. She states that the oral liquid bank is the only medication that works for her. She is currently taking the pills and does not feel like these are effective. Independent Historian: None - Patient Only Review of External Notes: Reviewed GI note from recent admission as well as hospitalist note. Plan had been for vancomycin x14 days. ROS: Review of Systems All other systems reviewed and are negative. Allergies: Bees Levaquin [Levofloxacin Hemihydrate] Reglan [Metoclopramide Hcl] Droperidol Nalbuphine Hcl Phenergan [Promethazine] Medications: acetaminophen (TYLENOL) 325 MG tablet albuterol (PROAIR HFA/PROVENTIL HFA/VENTOLIN HFA) 108 (90 Base) MCG/ACT inhaler amLODIPine (NORVASC) 10 MG tablet brexpiprazole (REXULTI) 2 MG tablet buprenorphine HCl-naloxone HCl (SUBOXONE) 2-0.5 MG per film calcium carbonate (OS-ALISA) 1500 (600 Ca) MG tablet chlorhexidine (PERIDEX) 0.12 % solution clonazePAM (KLONOPIN) 1 MG tablet colestipol (COLESTID) 1 g tablet Continuous Blood Gluc Seamless Tube Roller (DEXCOM G6 ESTIMATOR) ANITA Continuous Blood Gluc Sensor (DEXCOM G6 SENSOR) MISC Continuous Blood Gluc Transmit (DEXCOM G6 TRANSMITTER) MISC cyanocobalamin (CYANOCOBALAMIN) 1000 MCG/ML injection desvenlafaxine (PRISTIQ) 100 MG 24 hr tablet desvenlafaxine (PRISTIQ) 50 MG 24 hr tablet EPINEPHrine (ANY BX GENERIC EQUIV) 0.3 MG/0.3ML injection 2-pack fenofibrate (TRICOR) 48 MG tablet ferrous sulfate (FEROSUL) 325 (65 Fe) MG tablet hydrOXYzine (ATARAX) 25 MG tablet insulin aspart (NOVOLOG FLEXPEN) 100 UNIT/ML pen insulin glargine (BASAGLAR KWIKPEN) 100 UNIT/ML pen insulin pen needle (31G X 5 MM) 31G X 5 MM miscellaneous lactobacillus rhamnosus, GG, (CULTURELL) capsule levothyroxine (SYNTHROID/LEVOTHROID) 175 MCG tablet Lidocaine (LIDOCARE) 4 % Patch menthol (ICY HOT) 5 % PTCH methocarbamol (ROBAXIN) 500 MG tablet metoprolol tartrate (LOPRESSOR) 25 MG tablet naloxone (NARCAN) nasal spray nitroGLYcerin (NITROSTAT) 0.4 MG sublingual tablet nystatin (MYCOSTATIN) 231804 UNIT/GM external ointment omega-3 acid ethyl esters (LOVAZA) 1 g capsule ondansetron (ZOFRAN ODT) 8 MG ODT tab pantoprazole (PROTONIX) 40 MG EC tablet Potassium Gluconate 595 MG CAPS risperiDONE (RISPERDAL M-TABS) 0.5 MG ODT rosuvastatin (CRESTOR) 40 MG tablet vancomycin (VANCOCIN) 125 MG capsule vitamin D3 (CHOLECALCIFEROL) 1.25 MG (86359 UT) capsule Past Medical History: Past Medical History: Diagnosis Date ??? Anemia ??? Benzodiazepine dependence (H) ??? C. difficile colitis ??? Chronic infection ??? Chronic pain ??? COPD (chronic obstructive pulmonary disease) (H) ??? Degeneration of intervertebral disc, site unspecified ??? Diabetic neuropathy (H) ??? Esophageal reflux ??? Generalized anxiety disorder ??? History of blood transfusion ??? History of Clostridium difficile colitis 08/10/2020 ??? Hypertension ??? Hypertriglyceridemia ??? Malabsorption ??? Nephrolithiasis ??? Neurogenic bladder ??? Obese ??? Opioid dependence (H) ??? MARIELLE (obstructive sleep apnea) ??? Other chronic pain ??? Port-A-Cath in place 08/10/2020 ??? Recurrent pancreatitis ??? Sleep apnea ??? Stress-induced cardiomyopathy ??? Syncope ??? Tobacco dependence ??? Transaminitis 04/22/2018 ??? Unspecified hereditary and idiopathic peripheral neuropathy ??? Unspecified hypothyroidism age 15 ??? Vitamin B12 deficiency ??? Vitamin D deficiency Past Surgical History: Past Surgical History: Procedure Laterality Date ??? APPENDECTOMY OPEN ??? ARTHROPLASTY HIP Right 08/06/2020 Procedure: Right total hip arthroplasty; Surgeon: Lencho Mayo MD; Location: OR ??? ARTHROSCOPY ANKLE Right 12/13/2017 Procedure: RIGHT ANKLE ARTHROSCOPY; Surgeon: Jovany Gonzalez MD; Location: [facility];Service: ??? BACK SURGERY Lumbar and cervical ??? [...] FIBULAR FRACTURE; Surgeon: Jovany Gonzalez MD; Location: [facility]; Service: ??? rectocele and cystocel repairs ??? REMOVE HARDWARE LOWER EXTREMITY Right 12/13/2017 Procedure: REMOVAL OF SYNDESMOSIS SCREWS, SUHAS; Surgeon: Jovany Gonzalez MD; Location: [facility] OR; Service: ??? REPAIR RECTOCELE ??? TONSILLECTOMY ??? ZZC NONSPECIFIC PROCEDURE 06/2001 Colonoscopy - neg -- abstracted 12/26/01 Family History: family history includes Colon Cancer in her mother; Liver Disease in her father; Other - See Comments in her father; Substance Abuse in her father, sister, and sister. Social History: reports that she has been smoking cigarettes. She has a 50.00 pack-year smoking history. She has never used smokeless tobacco. She reports that she does not currently use alcohol. She reports that she does not use drugs. PCP: Dyan Fuentes Physical Exam Patient Vitals for the past 24 hrs: BP Temp Temp src Pulse Resp SpO2 10/26/22 1236 -- -- -- -- -- 99 % 10/26/22 1227 -- -- -- -- -- 100 % 10/26/22 1217 -- -- -- -- -- 99 % 10/26/22 1210 -- -- -- -- -- 100 % 10/26/22 1205 -- -- -- -- -- 99 % 10/26/22 1204 -- -- -- -- -- 92 % 10/26/22 1200 (!) 151/89 -- -- 83 -- -- 10/26/22 1158 -- -- -- -- -- 94 % 10/26/22 1153 -- -- -- -- -- 97 % 10/26/22 1123 -- -- -- -- -- 96 % 10/26/22 1108 -- -- -- -- -- (!) 88 % 10/26/22 1043 (!) 168/96 -- -- 91 -- -- 10/26/22 0842 -- 98.8 ??F (37.1 ??C) Temporal 110 22 -- Physical Exam General: Resting on the bed. Head: No obvious trauma to head. Ears, Nose, Throat: External ears normal. Nose normal. Eyes: Conjunctivae clear. Pupils are equal, round, and reactive. Neck: Normal range of motion. Neck supple. CV: Regular rate and rhythm. No murmurs. Respiratory: Effort normal and breath sounds normal. No wheezing or crackles. Gastrointestinal: Soft. No distension. There is mild right middle tenderness. There is no rigidity,no rebound and no guarding. Neuro: Alert. Moving all extremities appropriately. Normal speech. Skin: Skin is warm and dry. No rash noted. Emergency Department Course Laboratory: Labs Ordered and Resulted from Time of ED Arrival to Time of ED Departure BASIC METABOLIC PANEL - Abnormal Result Value Sodium 142 Potassium 3.6 Chloride 100 Carbon Dioxide (CO2) 25 Anion Gap 17 (*) Urea Nitrogen 8.4 Creatinine 0.90 Calcium 8.9 Glucose 226 (*) GFR Estimate 72 CBC WITH PLATELETS AND DIFFERENTIAL - Abnormal WBC Count 5.4 RBC Count 4.39 Hemoglobin 13.8 Hematocrit 42.8 MCV 98 MCH 31.4 MCHC 32.2 RDW 16.1 (*) Platelet Count 250 % Neutrophils 47 % Lymphocytes 42 % Monocytes 9 % Eosinophils 0 % Basophils 1 % Immature Granulocytes 1 NRBCs per 100 WBC 0 Absolute Neutrophils 2.6 Absolute Lymphocytes 2.3 Absolute Monocytes 0.5 Absolute Eosinophils 0.0 Absolute Basophils 0.1 Absolute Immature Granulocytes 0.0 Absolute NRBCs 0.0 LACTIC ACID WHOLE BLOOD - Abnormal Lactic Acid 2.8 (*) Procedures Emergency Department Course & Assessments: Interventions: Medications 0.9% sodium chloride BOLUS (0 mLs Intravenous Stopped 10/26/22 1130) acetaminophen (TYLENOL) tablet 975 mg (975 mg Oral $Given 10/26/22 1154) LORazepam (ATIVAN) injection 0.5 mg (0.5 mg Intravenous $Given 10/26/22 1155) 0.9% sodium chloride BOLUS (1,000 mLs Intravenous $New Bag 10/26/22 1211) Assessments: 1118 I spoke with patient and obtained history Independent Interpretation (X-rays, CTs, rhythm strip): None Consultations/Discussion of Management or Tests: ED Course as of 10/26/22 1339 Tue Oct 26, 2022 1216 I spoke with Danisha Rossi for Dr Rodriguez Social Determinants of Health affecting care: None Disposition: The patient was admitted to the hospital under the care of Dr. Rodriguez. Impression & Plan [facility] Diagnoses: The Lactic acid level is elevated due to dehydration, at this time there is no sign of severe sepsis or septic shock. and None Medical Decision Makin-year-old female with history of recent pancolitis, C. difficile infection presents with nausea, vomiting and ongoing diarrhea. Vitals are largely unremarkable. Afebrile. Broad differential was pursued including not limited dehydration, sepsis, ischemic colitis, electrolyte, metabolic, renal dysfu nction, etc. CBC without leukocytosis or anemia. BMP does have a mild anion gap which I am checkingof the lactate was also mildly elevated speaking this gap. There is no other electrolyte, metabolicor renal abnormalities noted. Lactate minimally elevated I see if this is related to dehydration aspatient is afebrile does not meet any other sepsis criteria at this time. She is currently being treated for her C. difficile infection. She reports ongoing abdominal pain but does denies black or bloody stools. I do not suspect ischemic colitis or mesenteric ischemia. I do not see indication for repeat imaging at this time. Plan for pain control, IV fluids and admission for observation as patient reports that she is generally quite weak. Admitted to the hospitalist who graciously accepted. Diagnosis: ICD-10-CM 1. Nausea and vomiting, unspecified vomiting type R11.2 Discharge Medications: New Prescriptions No medications on file 10/26/2022 Dyan Samaniego MD Bennett, Jennifer L, MD 10/26/22 1350 documented in this encounter Miscellaneous Notes * Plan of Care - Brittney Masterson RN - 10/28/2022 3:26 PM CDT Patient's After Visit Summary was reviewed with patient and/or spouse. Patient verbalized understanding of After Visit Summary, recommended follow up and was given an opportunity to ask questions. Discharge medications sent home with patient/family: No Discharged with spouse OBSERVATION patient END time: 1526 * Plan of Care - Brittney Masterson RN - 10/28/2022 12:04 PM CDT PRIMARY DIAGNOSIS: GASTROENTERITIS/colonoscopy today/enteric panel pending OUTPATIENT/OBSERVATION GOALS TO BE MET BEFORE DISCHARGE 1. Orthostatic performed: No 2. Tolerating PO fluid and/or antibiotics (if applicable): Yes 3. Nausea/Vomiting/Diarrhea symptoms improved: Pt finished bowel prep- denies nausea currently 4. Pain status: Improved-controlled with oral pain medications. 5. Return to near baseline physical activity: Yes Patient Support Tech Nurse Safe discharge environment identified: Yes Barriers to discharge: Yes- colonoscopy today Entered by: Brittney Masterson RN 10/28/2022 Please review provider order for any additional goals. Nurse to notify provider when observation goals have been met and patient is ready for discharge. Patient off unit in same day surgery for colonoscopy * Plan of Care - Brittney Masterson RN - 10/28/2022 8:00 AM CDT PRIMARY DIAGNOSIS: GASTROENTERITIS/colonoscopy today/enteric panel pending OUTPATIENT/OBSERVATION GOALS TO BE MET BEFORE DISCHARGE 1. Orthostatic performed: No 2. Tolerating PO fluid and/or antibiotics (if applicable): Yes 3. Nausea/Vomiting/Diarrhea symptoms improved: Pt finished bowel prep- denies nausea currently 4. Pain status: Improved-controlled with oral pain medications. 5. Return to near baseline physical activity: Yes Patient Support Tech Nurse Safe discharge environment identified: Yes Barriers to discharge: Yes- colonoscopy today Entered by: Brittney Masterson RN 10/28/2022 Please review provider order for any additional goals. Nurse to notify provider when observation goals have been met and patient is ready for discharge. AOx4. Up ad andres. Pain in abd- 5/10 this am, PRN oxy helps. Dneies nausea currently. Per pt- bowel output is clear and liquid post prep. Plan for colonoscopy today and probable discharge later today. Enteric panel still pending- precautions maintained * Plan of Care - Evi Gonzalez RN - 10/28/2022 7:35 AM CDT PRIMARY DIAGNOSIS: GASTROENTERITIS OUTPATIENT/OBSERVATION GOALS TO BE MET BEFORE DISCHARGE 1. Orthostatic performed: No 2. Tolerating PO fluid and/or antibiotics (if applicable): Yes 3. Nausea/Vomiting/Diarrhea symptoms improved: No, pt had bowel prep 4. Pain status: Improved-controlled with oral pain medications. 5. Return to near baseline physical activity: Yes Patient Support Tech Nurse Safe discharge environment identified: No Barriers to discharge: Yes Entered by: Evi Gonzalez RN 10/28/2022 7:35 AM Please review provider order for any additional goals. Nurse to notify provider when observation goals have been met and patient is ready for discharge. Pt A&Ox4. Complained of abdominal pain PRN Oxycodone given. Remained nauseated per pt PRN Zofran given. Ambulating to the bathroom independently,refused bed alarm and assistance. Pt reported thather stool is now clear and ready for colonoscopy. Kept NPO since midnight and IV fluids started. * Plan of Care - Evi Gonzalez RN - 10/28/2022 12:00 AM CDT PRIMARY DIAGNOSIS: GASTROENTERITIS OUTPATIENT/OBSERVATION GOALS TO BE MET BEFORE DISCHARGE 1. Orthostatic performed: No 2. Tolerating PO fluid and/or antibiotics (if applicable): Yes 3. Nausea/Vomiting/Diarrhea symptoms improved: No, pt had bowel prep 4. Pain status: Improved-controlled with oral pain medications. 5. Return to near baseline physical activity: Yes Patient Support Tech Nurse Safe discharge environment identified: No Barriers to discharge: Yes Entered by: Evi Gonzalez RN 10/28/2022 2:07 AM Please review provider order for any additional goals. Nurse to notify provider when observation goals have been met and patient is ready for discharge. * Plan of Care - Carter Regan RN - 10/27/2022 8:00 PM CDT PRIMARY DIAGNOSIS: GASTROENTERITIS OUTPATIENT/OBSERVATION GOALS TO BE MET BEFORE DISCHARGE 1. Orthostatic performed: N/A 2. Tolerating PO fluid and/or antibiotics (if applicable): Patient tolerating clear liquid diet as of now - to be NPO after 0000. Completing bowel prep this shift. 3. Nausea/Vomiting/Diarrhea symptoms improved: Yes - Responding well to IV ondansetron. 4. Pain status: Slightly improved. Hx of chronic pain. Oxycodone PRN per SEP. Pain the best its been rated at 4/10 at end of shift. 5. Return to near baseline physical activity: Yes Patient Support Tech Nurse Safe discharge environment identified: Yes Barriers to discharge: Yes - Patient to have colonoscopy completed tomorrow at 1100. Entered by: Carter Regan RN 10/27/2022 Patient is A&Ox4 and VSS on RA. Patient has left PIV saline locked. Patient is independent in room otherwise SBA. Commode set up at bedside. Bowel prep completed and continues to have watery stools. 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 Has colonoscopy scheduled for tomorrow morning. Enteric panel and c. Diff sent to lab - pending results. Pain being treated with scheduled medications, oxycodone PRN, and IV ondansetron. Pain rated a 4/10. Patient on clear liquid diet until 0000 - then NPO for upcoming colonoscopy. Resting comfortably. Please review provider order for any additional goals. Nurse to notify provider when observation goals have been met and patient is ready for discharge. * Plan of Care - Carter Regan RN - 10/27/2022 4:00 PM CDT PRIMARY DIAGNOSIS: GASTROENTERITIS OUTPATIENT/OBSERVATION GOALS TO BE MET BEFORE DISCHARGE 1. Orthostatic performed: N/A 2. Tolerating PO fluid and/or antibiotics (if applicable): Patient tolerating clear liquid diet as of now - to be NPO after 0000. Completing bowel prep this shift. 3. Nausea/Vomiting/Diarrhea symptoms improved: Yes - Responding well to IV ondansetron. 4. Pain status: Slightly improved. Hx of chronic pain. Oxycodone PRN per SEP. 5. Return to near baseline physical activity: Yes Patient Support Tech Nurse Safe discharge environment identified: Yes Barriers to discharge: Yes - Patient to have colonoscopy completed tomorrow at 1100. Entered by: Carter Regan RN 10/27/2022 Patient is A&Ox4 and VSS on RA. Patient has left PIV saline locked. Patient is independent in room otherwise SBA. Commode set up at bedside pending bowel prep. Denies any elimination issues, although has not had BM this shift. Still attempting to collect stool specimen for lab analysis. Pain being treated with scheduled medications and oxycodone PRN. BP 124/74 (BP Location: Right arm) Pulse 74 Temp 98.4 ??F (36.9 ??C) (Oral) Resp 16 Ht 1.727 m (5' 8) Wt 106.1 kg (234 lb) LMP (LMP Unknown) SpO2 95% BMI 35.58 kg/m?? Please review provider order for any additional goals. Nurse to notify provider when observation goals have been met and patient is ready for discharge. * Plan of Care - Brittney Masterson RN - 10/27/2022 12:00 PM CDT PRIMARY DIAGNOSIS: GASTROENTERITIS OUTPATIENT/OBSERVATION GOALS TO BE MET BEFORE DISCHARGE 1. Orthostatic performed: N/A 2. Tolerating PO fluid and/or antibiotics (if applicable): Yes 3. Nausea/Vomiting/Diarrhea symptoms improved: Yes 4. Pain status: Improved-controlled with oral pain medications. 5. Return to near baseline physical activity: Yes Patient Support Tech Nurse Safe discharge environment identified: Yes Barriers to discharge: Yes Entered by: Brittney Masterson RN 10/27/2022 Please review provider order for any additional goals. Nurse to notify provider when observation goals have been met and patient is ready for discharge. AOx4. Up SBA. Pain in abd 8/10, prn oxy helping some- brought pain down to 5/10. No stools- collectif has BM for enteric panel- precautions maintained. Intermittent nausea this afternoon- PRN zofrangiven- will monitor. GI following- clear liquid diet with plan for NPO at midnight and colonoscopy tomorrow. * Plan of Care - Brittney Masterson RN - 10/27/2022 8:00 AM CDT PRIMARY DIAGNOSIS: GASTROENTERITIS OUTPATIENT/OBSERVATION GOALS TO BE MET BEFORE DISCHARGE 1. Orthostatic performed: N/A 2. Tolerating PO fluid and/or antibiotics (if applicable): Yes 3. Nausea/Vomiting/Diarrhea symptoms improved: Yes 4. Pain status: Improved-controlled with oral pain medications. 5. Return to near baseline physical activity: Yes Patient Support Tech Nurse Safe discharge environment identified: Yes Barriers to discharge: Yes Entered by: Brittney Masterson RN 10/27/2022 Please review provider order for any additional goals. Nurse to notify provider when observation goals have been met and patient is ready for discharge. AOx4. Up SBA. Pain in abd 02/17, provider aware. No stools- collect if has BM for enteric panel- precautions maintained. No nausea/emesis, tolerated regular diet. GI consult today. * Plan of Care - Agustin Wong RN - 10/27/2022 5:42 AM CDT PRIMARY DIAGNOSIS: DIARRHEA,NAUSEA & VOMITING. S/p C -.DIFF OUTPATIENT/OBSERVATION GOALS TO BE MET BEFORE DISCHARGE 1. Orthostatic performed: N/A 2. Tolerating Oral medication 3. Nausea/Vomiting/Diarrhea no episode in my shift . 4. Return to near baseline physical activity: Yes Pt is able to make her need known.will continue management. Vitals are Temp: 98.1 ??F (36.7 ??C) Temp src: Oral BP: (!) 142/87 Pulse: 75 Resp: 16 SpO2: 98 %. Patient is Alert and Oriented x4. They are SBA with Gait Belt. Patient is on Enteric precuations for C-Diff. Pt is on a Regular diet. Stool sample is pending for collection as pt is unable to have bowel movement pt had quiet night,no fresh complaint aside what we are managing. Plan: G I consult today Patient Support Tech Nurse Safe discharge environment identified: Yes Barriers to discharge: Yes - Awaiting C.diff test and enteric panel to be collected and analyzed bylab. GI consult scheduled for AM. Entered by: Agustin Wong RN Please review provider order for any additional goals. Nurse to notify provider when observation goals have been met and patient is ready for discharge. * Plan of Care - Agustin Wong RN - 10/27/2022 12:00 AM CDT PRIMARY DIAGNOSIS: DIARRHEA,NAUSEA & VOMITING. S/p C -.DIFF OUTPATIENT/OBSERVATION GOALS TO BE MET BEFORE DISCHARGE 1. Orthostatic performed: N/A 2. Tolerating Oral medication 3. Nausea/Vomiting/Diarrhea no episode in my shift . 4. Return to near baseline physical activity: Yes Pt is able to make her need known.will continue management. Patient Support Tech Nurse Safe discharge environment identified: Yes Barriers to discharge: Yes - Awaiting C.diff test and enteric panel to be collected and analyzed bylab. GI consult scheduled for AM. Entered by: Agustin Wong RN Please review provider order for any additional goals. Nurse to notify provider when observation goals have been met and patient is ready for discharge. * Plan of Care - Carter Regan RN - 10/26/2022 8:00 PM CDT PRIMARY DIAGNOSIS: Diarrhea, nausea, and vomiting. S/p C.diff 1.5 weeks ago OUTPATIENT/OBSERVATION GOALS TO BE MET BEFORE DISCHARGE 1. Orthostatic performed: N/A 2. Tolerating PO fluid and/or antibiotics (if applicable): Patient advanced to regular diet - tolerated clear and full liquid well 3. Nausea/Vomiting/Diarrhea symptoms improved: Continues to have loose stools. Nausea being treatedwith ondansetron PO. No vomiting this shift. 4. Pain status: Patient reports 8/10 constant pain in RLQ. Pain is stabbing, cramping, and pressurein nature. HCP declines further pain intervention besides what is listed on MAR. 5. Return to near baseline physical activity: Yes Patient Support Tech Nurse Safe discharge environment identified: Yes Barriers to discharge: Yes - Awaiting C.diff test and enteric panel to be collected and analyzed bylab. GI consult scheduled for AM. Entered by: Carter Regan RN 10/26/2022 9:41 PM Patient is A&Ox4 and VSS on RA. Patient has LR's running at 100 mL/hr on left PIV. Patient has been advanced to a regular diet this shift. She has tolerated clear/full liquid well. She is stand by assist due to running fluids. Voiding urine without difficulty but continues to have loose stools. Reports 10-15 episodes of loose stools in last 24 hrs. Awaiting stool studies to be run (C.diff and enteric panel). Last two BM's contaminated with urine and will continue to work with patient to obtain an appropriate sample. Pain is uncontrolled despite current MAR regimen. HCP declines further interventions such as oxycodone which has been requested by patient. Ondansetron given intravenously did help manage some nausea that was associated with her pain whichshe responded well, despite still reporting 8/10, was more relieved. BP 136/78 (BP Location: Right arm) Pulse 76 Temp 98.6 ??F (37 ??C) (Oral) Resp 20 Ht 1.727 m (5' 8) Wt 106.1 kg (234 lb) LMP (LMP Unknown) SpO2 96% BMI 35.58 kg/m?? Please review provider order for any additional goals. Nurse to notify provider when observation goals have been met and patient is ready for discharge. * Plan of Care - Carter Regan RN - 10/26/2022 4:00 PM CDT PRIMARY DIAGNOSIS: Diarrhea, nausea, and vomiting. S/p C.diff 1.5 weeks ago OUTPATIENT/OBSERVATION GOALS TO BE MET BEFORE DISCHARGE 1. Orthostatic performed: N/A 2. Tolerating PO fluid and/or antibiotics (if applicable): Patient advanced to regular diet - tolerated clear and full liquid well 3. Nausea/Vomiting/Diarrhea symptoms improved: Continues to have loose stools. Nausea being treatedwith ondansetron PO. No vomiting this shift. 4. Pain status: Patient reports 8/10 constant pain in RLQ. Pain is stabbing, cramping, and pressurein nature. HCP declines further pain intervention besides what is listed on SEP. 5. Return to near baseline physical activity: Yes Patient Support Tech Nurse Safe discharge environment identified: Yes Barriers to discharge: Yes - Awaiting C.diff test and enteric panel to be collected and analyzed bylab. GI consult scheduled for AM. Entered by: Carter Regan RN 10/26/2022 9:37 PM BP 136/78 (BP Location: Right arm) Pulse 76 Temp 98.6 ??F (37 ??C) (Oral) Resp 20 Ht 1.727 m (5' 8) Wt 106.1 kg (234 lb) LMP (LMP Unknown) SpO2 96% BMI 35.58 kg/m?? Please review provider order for any additional goals. Nurse to notify provider when observation goals have been met and patient is ready for discharge. * Plan of Care - Davina Sahu RN - 10/26/2022 3:04 PM CDT ROOM # 226 Living Situation (if not independent, order SW consult): Home with Facility name: N/A [facility]yperson: ([facility] [phone] Activity level at baseline: IND, might need a cane Activity level on admit: SBA Who will be transporting you at discharge: [facility] Patient registered to observation; given Patient Bill of Rights; given the opportunity to ask questions about observation status and their plan of care. Patient has been oriented to the observation room, bathroom and call light is in place. Discussed discharge goals and expectations with patient/family. * Pharmacy-Admission Medication History - Yee Sullivan RPH - 10/26/2022 1:56 PM CDT Pharmacist Admission Medication History Admission medication history is complete. The information provided in this note is only as accurateas the sources available at the time of the update. Medication reconciliation/reorder completed by provider prior to medication history? No Information Source(s): Patient, Hospital records and CareEverywhere/SureScripts via in-person Pertinent Information: pt states she needs po vanco liquid, not capsules. States capsules do not work for her. 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 Added: aspirin, vitamin d1000 ??? Deleted: [id number] daily prn, icy hot patch, vitamin d 23765 weekly ??? Changed: lidocaine patch from scheduled to prn, nystatin from bid to bid prn, methocarbamol from 500-1000mg qid prn to 1000mg qid, ferrous sulfate from 2 daily to 1 daily, hydroxyzie from 25mg q6h prn to 25 mg qid, risperidone from 1mg daily to 0.5mg daily Medication Affordability: Not including over the counter (OTC) medications, was there a time in the past 12 months when you did not take your medications as prescribed because of cost?: No Allergies reviewed with patient and updates made in EHR: yes Medication History Completed By: Yee Sullivan [facility] 10/26/2022 1:56 PM Prior to Admission medications Medication Sig Last Dose Taking? Auth Provider [facility] Date acetaminophen (TYLENOL) 325 MG tablet Take 3 tablets (975 mg) by mouth every 6 hours as needed for mild pain Unknown at ? Yes Mary Del Cid NP albuterol (PROAIR HFA/PROVENTIL HFA/VENTOLIN HFA) 108 (90 Base) MCG/ACT inhaler Inhale 2 puffs intothe lungs every 4 hours as needed for shortness of breath / dyspnea or wheezing Unknown at ? Yes Dyan Fuentes MD Yes amLODIPine (NORVASC) 10 MG tablet Take 1 tablet (10 mg) by mouth daily 10/25/2022 at am Yes Dyan Fuentes MD Yes aspirin 81 MG EC tablet Take 81 mg by mouth daily 10/25/2022 at am Yes Unknown, Entered By History brexpiprazole (REXULTI) 2 MG tablet Take 2 mg by mouth daily 10/25/2022 at am Yes Unknown, Entered By History buprenorphine HCl-naloxone HCl (SUBOXONE) 2-0.[address] 1 Film under the tongue 3 times daily OK to fill 09/21/22 start 09/23/22 10/25/2022 at afternoon Yes Mary Del Cid NP calcium carbonate (OS-ALISA) 1500 (600 Ca) MG tablet Take 1 tablet (600 mg) by mouth 2 times daily (with meals) 10/25/2022 at am Yes Len Adhikari MD clonazePAM (KLONOPIN) 1 MG tablet Take 1 mg by mouth 2 times daily 10/25/2022 at am Yes Unknown, Entered By History No colestipol (COLESTID) 1 g tablet Take 1 tablet by mouth 2 times daily 10/25/2022 at am Yes Reported,Patient Yes cyanocobalamin (CYANOCOBALAMIN) 1000 MCG/ML injection INJECT 1 ML (1000 MCG) INTRAMUSCULARLY EVERY 30 DAYS. DISCARD 28 DAYS AFTERFIRST USE Strength: 1,000 mcg/mL Past Month at ? Yes Dyan Fuentes MD desvenlafaxine (PRISTIQ) 100 MG 24 hr tablet TAKE 1 TABLET BY MOUTH EVERY DAY 10/25/2022 at am Yes Len Adhikari MD Yes desvenlafaxine (PRISTIQ) 50 MG 24 hr tablet TAKE 1 TABLET BY MOUTH ONCE DAILY TAKE WITH 100MG TABS FOR A TOTAL DAILY DOSE OF 150MGS 10/25/2022 at am Yes Dyan Fuentes MD Yes EPINEPHrine (ANY BX GENERIC EQUIV) 0.3 MG/0.3ML injection 2-pack Inject 0.3 mLs (0.3 mg) into the muscle as needed for anaphylaxis (EPI-PEN) More than a month at ? Yes Dyan Fuentes MD fenofibrate (TRICOR) 48 MG tablet Take 1 tablet (48 mg) by mouth daily 10/25/2022 at am Yes Dyan Fuentes MD Yes ferrous sulfate (FEROSUL) 325 (65 Fe) MG tablet Take 325 mg by mouth daily (with breakfast) 10/25/2022 at am Yes Len Adhikari MD hydrOXYzine (ATARAX) 25 MG tablet Take 25 mg by mouth 4 times daily 10/25/2022 at afternoon Yes Unknown, Entered By History insulin aspart (NOVOLOG FLEXPEN) 100 UNIT/ML pen INJECT 1 UNIT FOR 50 POINTS ABOVE 150 WITH EACH MEAL (TOTAL DAILY DOSE 10-15 UNITS PER DAY) Past Week at ? Yes Dyan Fuentes MD Yes insulin glargine (BASAGLAR KWIKPEN) 100 UNIT/ML pen Inject 10 Units Subcutaneous every morning 10/25/2022 at am Yes Dyan Fuentes MD Yes lactobacillus rhamnosus, GG, (CULTURELL) capsule Take 1 capsule by mouth 2 times daily for 14 days 10/25/2022 at am Yes Janine Del Rosario PA-C 10/31/22 levothyroxine (SYNTHROID/LEVOTHROID) 175 MCG tablet Take 2 tablets (350 mcg) by mouth daily 10/25/2022 at am Yes Katiana Read MD Yes Lidocaine (LIDOCARE) 4 % Patch Place onto the skin daily as needed for moderate pain To prevent lidocaine toxicity, patient should be patch free for 12 hrs daily. Unknown at ? Yes Unknown, Entered ByHistory methocarbamol (ROBAXIN) 500 MG tablet Take 1,000 mg by mouth 4 times daily 10/25/2022 at afternoon Yes Unknown, Entered By History metoprolol tartrate (LOPRESSOR) 25 MG tablet TAKE 1 TABLET BY MOUTH TWICE A DAY 10/25/2022 at am YesDyan Fuentes MD Yes naloxone (NARCAN) nasal spray [place] 1 spray (4 mg) into one nostril alternating nostrils as needed Unknown at ? Yes Winsome Ghotra APRN SOURCING ASSOCIATE Yes nitroGLYcerin (NITROSTAT) 0.[address] 1 tablet (0.4 mg) under the tongue every 5minutes as needed for chest pain Past Month at ? Yes Len Adhikari MD Yes nystatin (MYCOSTATIN) 260023 UNIT/GM external ointment Apply topically 2 times daily as needed Unknown at ? Yes Unknown, Entered By History omega-3 acid ethyl esters (LOVAZA) 1 g capsule TAKE 2 CAPSULES BY MOUTH TWICE A DAY 10/25/2022 at Len Jeffers MD ondansetron (ZOFRAN ODT) 8 MG ODT tab DISSOLVE 1 TABLET ON THE TONGUE TWICE DAILY NEEDED FOR NAUSEA Past Week at ? Yes Len Adhikari MD No pantoprazole (PROTONIX) 40 MG EC tablet Take 1 tablet (40 mg) by mouth daily 10/25/2022 at am Yes Dyan Fuentes MD Potassium Gluconate 595 MG CAPS Take 1 capsule by mouth daily 10/25/2022 at am Yes Len Adhikari MD risperiDONE (RISPERDAL M-TABS) 0.[address] 0.5 mg under the tongue daily 10/25/2022 Yes Unknown, Entered By History No rosuvastatin (CRESTOR) 40 MG tablet Take 1 tablet (40 mg) by mouth daily 10/25/2022 at am Yes Dyan Fuentes MD Yes vancomycin (VANCOCIN) 125 MG capsule Take 1 capsule (125 mg) by mouth 4 times daily for 14 days 10/25/2022 at afternoon Yes Janine Del Rosario PA-C No 10/31/22 Vitamin D3 (VITAMIN D, CHOLECALCIFEROL,) 25 mcg (1000 units) tablet Take 1 tablet by mouth daily 10/25/2022 at am Yes Unknown, Entered By History documented in this encounter Plan of Treatment Upcoming Encounters Date Type Department Care Team (Late st Contact Info) Description 08/18/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 [facility] [address] [place] [address] Katiana Read MD [address] [place] [address] Scheduled Orders Name Type Priority Associated Diagnoses Orde r Schedule EKG 12 lead EKG STAT One Time for 1 Occurrences starting 10/26/2022 until 10/26/2022 Scheduled Referrals Name Type Priority Associated Diagnoses Orde r Schedule Primary Care - Care Coordination Referral Referral Routine: Next available opening Nausea and vomiting, unspecified vomiting type Expected: 10/27/2022 (Approximate), Expires: 10/28/2023 documented as of this encounter Procedures Procedure Name Priority Date/Time Associated Diagnosis Comments GLUCOSE BY METER Routine 10/28/2022 1:29 PM CDT SURGICAL PATHOLOGY EXAM Routine 10/28/2022 11:48 AM CDT COLONOSCOPY, WITH POLYPECTOMY AND BIOPSY 10/28/2022 11:24 AM CDT Pancolitis (H) COLONOSCOPY Routine 10/28/2022 11:10 AM CDT GLUCOSE BY METER Routine 10/28/2022 10:3 3 AM CDT GLUCOSE BY METER Routine 10/28/2022 8:00 AM CDT GLUCOSE BY METER Routine 10/28/2022 1:39 AM CDT GLUCOSE BY METER Routine 10/27/2022 9:07 PM CDT ENTERIC BACTERIA AND VIRUS PANEL BY PCR STAT 10/27/2022 7:20 PM CDT C. DIFFICILE ANTIGEN AND TOXINS A/B BY ENZYME IMMUNOASSAY Routine 10/27/2022 7:20 PM CDT C. DIFFICILE TOXIN B PCR WITH REFLEX TO C. DIFFICILE ANTIGEN AND TOXINS A/B EIA Routine 10/27/2022 7:20 PM CDT GLUCOSE BY METER Routine 10/27/2022 4:57 PM CDT GLUCOSE BY METER Routine 10/27/2022 12:4 8 PM CDT LIPASE Add-On 10/27/2022 6:34 AM CDT BASIC METABOLIC PANEL Routine 10/27/2022 6:34 AM CDT GLUCOSE BY METER Routine 10/27/2022 6:06 AM CDT GLUCOSE BY METER Routine 10/27/2022 1:53 AM CDT GLUCOSE BY METER Routine 10/26/2022 10:4 6 PM CDT GLUCOSE BY METER Routine 10/26/2022 4:50 PM CDT PHOSPHORUS Routine 10/26/2022 2:52 PM CDT MAGNESIUM Routine 10/26/2022 2:52 PM CDT LACTIC ACID WHOLE BLOOD STAT 10/26/2022 2:52 PM CDT LACTIC ACID WHOLE BLOOD STAT 10/26/2022 11:50 AM CDT EXTRA TUBE STAT 10/26/2022 10:22 AM CDT EXTRA RED TOP TUBE STAT 10/26/2022 10 :22 AM CDT CBC WITH PLATELETS AND DIFFERENTIAL STAT 10/26/2022 10:22 AM CDT CBC WITH PLATELETS & DIFFERENTIAL STAT 10/26/2022 10:22 AM CDT BASIC METABOLIC PANEL STAT 10/26/2022 10:22 AM CDT documented in this encounter Results * (ABNORMAL) Glucose by meter (10/28/2022 1:29 PM CDT) [facility] GLUCOSE BY METER POCT 138(H) 70 - 99 mg/dL 10/28/2022 1:36 PM CDT LABORATORY POC Blood, Capillary BLOOD SPECIMEN / Unknown 10/28/2022 1:29 PM CDT 10/28/2022 1:36 PM CDT Marlon [facility] PO[facility] LABORAT[facility] [address] [facility] (1st floor, no room number) [place] [address], [place] [phone] * Surgical Pathology Exam (10/28/2022 11:48 AM CDT) Case Report Surgical Pathology Report ? Case: [id number] ? Authorizing Provider: ??Jeffry Fajardo MD Collected: ? 10/28/2022 11:48 AM ? Ordering Location: ? [facility] ?? Received: ?10/28/2022 12:15 PM ? Main OR ? Pathologist: ? Robin Sánchez MD ? Specimens: ?? A) - Small Intestine, Terminal Ileum, terminal ileum biopsies ? B) - Large Intestine, Colon, Random, random colon biopsies ? 10/29/2022 2:44 PM CDT [facility] LABORATORY Final Diagnosis A. Terminal ileum: --No significant histopathologic change. B. Colon, random, biopsies: --No significant histopathologic change. 10/29/2022 2:44 PM CDT LABORATORY Clinical Information Procedure: COLONOSCOPY with biopsies Pre-op Diagnosis: Pancolitis (H) [K51.00] Post-op Diagnosis: K51.00 - Pancolitis (H) [ICD-10-CM] 10/29/2022 2:44 PM CDT LABORATORY Gross Description A(1). Small Intestine, Terminal Ileum, terminal ileum biopsies: The specimen is received in formalin, labeled with the patient's name, medical record number and other identifying information and designated ? terminal ileum biopsies? . It consists of 3 alvarez soft tissue fragments ranging from 0.3-0.4 cm. Entirely submitted in one cassette. B(2). Large Intestine, Colon, Random, random colon biopsies: The specimen is received in formalin, labeled with the patient's name, medical record number and other identifying information and designated ? random colon biopsies? . It consists of multiple alvarez soft tissue fragments ranging from 0.2-0.3 cm. Entirely submitted in one cassette. (DIANA Lozada (ASCP)) 10/29/2022 2:44 PM CDT LABORATORY Microscopic Description Microscopic examination was performed. 10/29/2022 2:44 PM CDT LABORATORY Performing Labs The technical component of this testing was completed at [facility] 10/29/2022 2:44 PM CDT LABORATORY Case Images 10/29/2022 2:44 PM CDT LABORATORY Tissue STRUCTURE OF DISTAL PORTION OF ILEUM / Unknown 10/28/2022 11:48 AM CDT 10/28/2022 12:15 PM CDT Tissue specimen (specimen) COLON STRUCTURE / Unknown 10/28/2022 11:49 AM CDT 10/28/2022 12:15 PM CDT Comment:Concerns: Possible C -diff. versus Microscopic colitis Jeffry T[facility]O - [facility] Acute Care Lab [address] [facility] Lab (1st floor, no room number) [place] [address], [facility] [phone] * COLONOSCOPY (10/28/2022 11:10 AM CDT) [facility] Patient Name: Kaila PinedaHalie Robchristi Hernandez Procedure Date: 10/28/2022 11:10 AM ? Date of : 1960 ? Admit Type: Outpatient Age: 61 ? Gender: Female Attending MD: JEFFRY FAJARDO MD, ??Total Sedation Time: MAC sedation Instrument Name: 257 - Pediatric Colonoscope Procedure: ?Colonoscopy Indications: ?Chronic diarrhea Providers: ?JEFFRY FAJARDO MD (Doctor) Referring MD: ? Medicines: ?Monitored Anesthesia Care Complications: ?No immediate complications. Procedure: ?Pre-Anesthesia Assessment: ?- Prior to the procedure, a History and Physical ?was performed, and patient medications and ?allergies were reviewed. The patient is competent. ?The risks and benefits of the procedure and the ?sedation options and risks were discussed with the ?patient. All questions were answered and informed ?consent was obtained. Patient identification and ?proposed procedure were verified by the physician, ?the nurse and the proof carrier in the procedure ?room. Mental Status Examination: alert and ?oriented. After reviewing the risks and benefits, ?the patient was deemed in satisfactory condition to ?undergo the procedure. The anesthesia plan was to ?use monitored anesthesia care (MAC). Immediately ?prior to administration of medications, the patient ?was re-assessed for adequacy to receive sedatives. ?The heart rate, respiratory rate, oxygen ?saturations, blood pressure, adequacy of pulmonary ?ventilation, and response to care were monitored ?throughout the procedure. The physical status of ?the patient was re-assessed after the procedure. ?After obtaining informed consent, the colonoscope ?was passed under direct vision. Throughout the ?procedure, the patient's blood pressure, pulse, and ?oxygen saturations were monitored continuously. The ?[employer] Pediatric Colonoscope Model # [id number], ?[place] # 257, SN # [id number] was introduced through ?the anus and advanced to the terminal ileum. The ?colonoscopy was performed without difficulty. The ?patient tolerated the procedure well. The quality ?of the bowel preparation was fair. The terminal ?ileum, ileocecal valve, appendiceal orifice, and ?rectum were photographed. ? Findings: ? The terminal ileum appeared normal. Biopsies were taken with a cold ? forceps for histology. Estimated blood loss was minimal. ? A few small-mouthed diverticula were found in the proximal ascending ? colon. ? No other significant abnormalities were identified in a careful ? examination of the remainder of the colon. ? The exam was otherwise normal throughout the examined colon. ? A moderate amount of stool was found in the colon, interfering with ? visualization. ? The retroflexed view of the distal rectum and anal verge was normal and ? showed no anal or rectal abnormalities. ? Biopsies for histology were taken with a cold forceps from the entire ? colon for evaluation of microscopic colitis. Estimated blood loss was ? minimal. ? Impression: ? - Preparation of the colon was fair. Patchy stool ?in the colon. Small or flat polyps could be missed. ?- The examined portion of the ileum was normal. ?Biopsied. ?- Diverticulosis in the proximal ascending colon. ?- Biopsies were taken with a cold forceps from the ?entire colon for evaluation of microscopic colitis. ?- Otherwise normal to terminal ileum. ?- No evidence of visible ileitis or colitis. Recommendation: ? - Await pathology results. ?- Advance diet as tolerated. ? Procedure Code(s): ? --- Professional --- ? 59612, Colonoscopy, flexible; with biopsy, single or multiple CPT copyright 2020 [employer]. All rights reserved. The codes documented in this report are preliminary and upon bread icer review may be revised to meet current compliance requirements. Electronically signed by Jeffry Fajardo MD JEFFRY FAJARDO MD 10/28/2022 12:11:08 PM I was physically present for the entire viewing portion of the exam. JEFFRY FAJARDO MD Number of Addenda: 0 Note Initiated On: 10/28/2022 11:10 AM MRN: ?[id number] Procedure Date: ? 10/28/2022 11:10:36 AM Scope Withdrawal Time: 0 hours 14 minutes 23 seconds Total Procedure Duration: 0 hours 17 minutes 31 seconds Estimated Blood Loss: ? Scope In: 11:42:14 AM Scope Out: 11:59:45 AM RADIOLOGY RESULTS 10/28/2022 11:1 0 AM CDT Jeffry Fajardo MD PROCEDURES RADIOLOGY RESULTS * (ABNORMAL) Glucose by meter (10/28/2022 10:33 AM CDT) GLUCOSE BY METER POCT 151(H) 70 - 99 mg/dL 10/28/2022 10:40 AM CDT LABORATORY POC Blood, Capillary BLOOD SPECIMEN / Unknown 10/28/2022 10:33 AM CDT 10/28/2022 10:40 AM CDT Marlon Rodriguez MD LAB - BEAKER POCT LABORATORY [facility] [address] Lab (1st floor, no room number) [place] [address], [facility] [phone] * (ABNORMAL) Glucose by meter (10/28/2022 8:00 AM CDT) GLUCOSE BY METER POCT 135(H) 70 - 99 mg/dL 10/28/2022 8:07 AM CDT RH LABORATORY POC Blood, Capillary BLOOD SPECIMEN / Unknown 10/28/2022 8:00 AM CDT 10/28/2022 8:07 AM CDT Marlon Rodriguez MD LAB - BEAKER POCT Performing Organization Address City/[facility]/ZIP Co de Phone Number LABORATORY [facility] Lab [address] Lab (1st floor, no room number) [place] [address], [facility] [phone] * (ABNORMAL) Glucose by meter (10/28/2022 1:39 AM CDT) GLUCOSE BY METER POCT 137(H) 70 - 99 mg/dL 10/28/2022 1:45 AM CDT RH LABORATORY POC Blood, Capillary BLOOD SPECIMEN / Unknown 10/28/2022 1:39 AM CDT 10/28/2022 1:45 AM CDT Marlon Rodriguez MD LAB - BEAKER POCT LABORATORY [facility] [address] Lab (1st floor, no room number) [place] [address], [facility] [phone] * (ABNORMAL) Glucose by meter (10/27/2022 9:07 PM CDT) GLUCOSE BY METER POCT 126(H) 70 - 99 mg/dL 10/27/2022 9:14 PM CDT RH LABORATORY POC Blood, Capillary BLOOD SPECIMEN / Unknown 10/27/2022 9:07 PM CDT 10/27/2022 9:14 PM CDT Marlon Rodriguez MD LAB - BEAKER POCT RH LABORATORY POC [facility] Lab [address] [facility] Lab (1st floor, no room number) [place] [address], [facility] [phone] * (ABNORMAL) C. difficile Antigen and Toxins A/B by Enzyme Immunoassay (10/27/2022 7:20 PM CDT) C. difficile GDH Antigen Positive(A) Negative OMI 10/28/2022 3:43 AM CDT [facility] C. difficile Toxin Negative Negative OMI 10/28/2022 3:43 AM CDT [facility] Stool RECTAL CONTENTS / Unknown Non-blood Collection / Unknown 10/27/2022 7:20 PM CDT 10/27/2022 7:28 PM CDT Narrative [facility] - 10/28/2022 3:43 AM CDT C. difficile GDH antigen detected and C. difficile toxin not detected by enzyme immunoassay. These results indicate the organism is present and the toxin is absent or below the limit of detection. Results must be interpreted based on clinical findings. Jeffry Fajardo MD LAB - MICRO GEN ERAL ORDERABLES [facility] Lab [address] [place] [address], [place] [phone] * (ABNORMAL) C. difficile Toxin B PCR with reflex to C. difficile Antigen and Toxins A/B EIA (10/27/2022 7:20 PM CDT) C Difficile Toxin B by PCR Positive( A) Negative 10/28/2022 2:14 AM CDT [facility] Comment: Detection of C. difficile nucleic acid in stools confirms the presence of these organisms in diarrheal patients but may not indicate that C. difficile is the etiologic agent of the diarrhea. Results from the Xpert C. difficile assay should be interpreted in conjunction with other laboratory and clinical data available to the clinician. Patients with a positive C. difficile PCR result will receive reflex GDH/Toxin Immunoassay testing. Please interpret the PCR test result in conjunction with GDH/Toxin Immunoassay results and the clinical status of patient. Stool RECTAL CONTENTS / Unknown Non-blood Collection / Unknown 10/27/2022 7:20 PM CDT 10/27/2022 7:28 PM CDT Narrative [facility] - 10/28/2022 2:14 AM CDT [employer] Xpert C. difficile Assay, performed on the [employer] Instrument Systems, is a qualitative in vitro diagnostic test for rapid detection of toxin B gene sequences from unformed (liquid or soft) stool specimens collected from patients suspected of having Clostridioides difficile infection (CDI). The test utilizes automated real-time polymerase chain reaction (PCR) to detect toxin gene sequences associated with toxin producing C. difficile. The Xpert C. difficile Assay is intended as an aid in the diagnosis of CDI. Jeffry Fajardo MD LAB - MICRO GEN ERAL ORDERABLES [facility] Lab [address] [place] [address], [facility] [phone] * Enteric Bacteria and Virus Panel by DOMINICK Stool (10/27/2022 7:20 PM CDT) Campylobacter group Not Detected Not Detected 10/28/2022 5:11 PM CDT [facility] Salmonella species Not Detected Not Detected 10/28/2022 5:11 PM CDT [facility] Shigella species Not Detected Not Detected 10/28/2022 5:11 PM CDT [facility] Vibrio group Not Detected Not Detected 10/28/2022 5:11 PM CDT [facility] Rotavirus Not Detected Not Detected 10/28/2022 5:11 PM CDT [facility] Shiga toxin 1 gene Not Detected Not Detected 10/28/2022 5:11 PM CDT [facility] Shiga toxin 2 gene Not Detected Not Detected 10/28/2022 5:11 PM CDT [facility] Norovirus I and II Not Detected Not Detected 10/28/2022 5:11 PM CDT [facility] Yersinia enterocolitica Not Detected Not Detected 10/28/2022 5:11 PM CDT [facility] Stool RECTAL CONTENTS / Unknown Non-blood Collection / Unknown 10/27/2022 7:20 PM CDT 10/27/2022 7:33 PM CDT Narrative [facility] - 10/28/2022 5:11 PM CDT Testing performed by multiplexed, qualitative PCR using the [employer] Enteric Pathogens Nucleic Acid Test. Results should not be used as the sole basis for diagnosis, treatment or other patient management decisions. Positive results do not rule out co-infection with other organisms that are not detected by this test and may not be the sole or definitive cause of patient illness. Negative results in the setting of clinical illness compatible with gastroenteritis may be due to infection by pathogens that are not detected by this test or non-infectious causes such as ulcerative colitis, irritable bowel syndrome or Crohn's disease. Note: Shiga toxin producing E. coli (STEC) typically harbor one or both genes that encode for Shiga toxins 1 and 2. Danisha Rosis PA-C LAB - MICRO GENERAL ORDERABLES [facility] Lab [address] [place] [address] [phone] * (ABNORMAL) Glucose by meter (10/27/2022 4:57 PM CDT) [facility] GLUCOSE BY METER POCT 215(H) 70 - 99 mg/dL 10/27/2022 5:04 PM CDT LABORATORY POC Blood, Capillary BLOOD SPECIMEN / Unknown 10/27/2022 4:57 PM CDT 10/27/2022 5:04 PM CDT Marlon Rodriguez MD LAB - BEAKER POCT RH LABORATORY POC [facility] [address] Lab (1st floor, no room number) [place] [phone], [facility] [phone] * (ABNORMAL) Glucose by meter (10/27/2022 12:48 PM CDT) GLUCOSE BY METER POCT 164(H) 70 - 99 mg/dL 10/27/2022 12:54 PM CDT LABORATORY POC Blood, Capillary BLOOD SPECIMEN / Unknown 10/27/2022 12:48 PM CDT 10/27/2022 12:54 PM CDT Marlon Rodriguez MD LAB - BEAKER POCT Performing Organization Address City/[facility]/ZIP Co de Phone Number LABORATORY POC [facility] [address] Lab (1st floor, no room number) [place] [phone], [facility] [phone] * Lipase (10/27/2022 6:34 AM CDT) Lipase 17 13 - 60 U/L 10/27/2022 11:18 AM CDT LABORATORY Blood STRUCTURE OF RIGHT UPPER LIMB / Unknown Venipuncture / Unknown 10/27/2022 6:34 AM CDT 10/27/2022 7:33 AM CDT Melissa Ivan PA-C LAB - BLOOD ORD ERABLES LABORATORY [facility] [address] Lab (1st floor, no room number) [place] [phone], [facility] [phone] * (ABNORMAL) Basic metabolic panel (10/27/2022 6:34 AM CDT) Sodium 141 136 - 145 mmol/L 10/27/2022 8:20 AM CDT LABORATORY Potassium 3.8 3.4 - 5.3 mmol/L 10/27/2022 8:20 AM CDT LABORATORY Chloride 106 98 - 107 mmol/L 10/27/2022 8:20 AM CDT LABORATORY Carbon Dioxide (CO2) 23 22 - 29 mmol/L 10/27/2022 8:20 AM CDT LABORATORY Anion Gap 12 7 - 15 mmol/L 10/27/2022 8:20 AM CDT LABORATORY Urea Nitrogen 4.5(L) 8.0 - 23.0 mg/dL 10/27/2022 8:20 AM CDT LABORATORY Creatinine 0.86 0.51 - 0.95 mg/dL 10/27/2022 8:20 AM CDT LABORATORY Calcium 8.4(L) 8.8 - 10.2 mg/dL 10/27/2022 8:20 AM CDT LABORATORY Glucose 155(H) 70 - 99 mg/dL 10/27/2022 8:20 AM CDT LABORATORY GFR Estimate 76 >60 mL/min/1.7 3m2 10/27/2022 8:20 AM CDT LABORATORY Comment:eGFR calculated usin g 2020 CKD-EPI equation. Blood STRUCTURE OF RIGHT UPPER LIMB / Unknown Venipuncture / Unknown 10/27/2022 6:34 AM CDT 10/27/2022 7:33 AM CDT Danisha Rossi PA-C LAB - BLOOD ORDERABL ES LABORATORY [facility] Lab [address] Lab (1st floor, no room number) [place] [address], [facility] [phone] * (ABNORMAL) Glucose by meter (10/27/2022 6:06 AM CDT) [facility] GLUCOSE BY METER POCT 151(H) 70 - 99 mg/dL 10/27/2022 6:13 AM CDT LABORATORY POC Blood, Capillary BLOOD SPECIMEN / Unknown 10/27/2022 6:06 AM CDT 10/27/2022 6:13 AM CDT Marlon Rodriguez MD LAB - BEAKER POCT LABORATORY [facility] Lab [address] Lab (1st floor, no room number) [place] [phone], [facility] [phone] * (ABNORMAL) Glucose by meter (10/27/2022 1:53 AM CDT) GLUCOSE BY METER POCT 170(H) 70 - 99 mg/dL 10/27/2022 2:01 AM CDT RH LABORATORY POC Blood, Capillary BLOOD SPECIMEN / Unknown 10/27/2022 1:53 AM CDT 10/27/2022 2:01 AM CDT Marlon Rodriguez MD LAB - [facility] POCT LABORATORY [facility] Lab [address] Lab (1st floor, no room number) [place] [address], [facility] [phone] * (ABNORMAL) Glucose by meter (10/26/2022 10:46 PM CDT) GLUCOSE BY METER POCT 215(H) 70 - 99 mg/dL 10/26/2022 10:52 PM CDT RH LABORATORY POC Blood, Capillary BLOOD SPECIMEN / Unknown 10/26/2022 10:46 PM CDT 10/26/2022 10:52 PM CDT Marlon Rodriguez MD LAB - AKER POCT LABORATORY [facility] [address] Lab (1st floor, no room number) [place] [address], [facility] [phone] * (ABNORMAL) Glucose by meter (10/26/2022 4:50 PM CDT) GLUCOSE BY METER POCT 209(H) 70 - 99 mg/dL 10/26/2022 4:57 PM CDT RH LABORATORY POC Blood, Capillary BLOOD SPECIMEN / Unknown 10/26/2022 4:50 PM CDT 10/26/2022 4:57 PM CDT Marlon TOSCANO - JOHN PAUL POCT Performing Organization Address [facility]/ZIP Co de Phone Number LABORATORY [facility] [address] Lab (1st floor, no room number) [place] [address], [facility] [phone] * (ABNORMAL) Phosphorus (10/26/2022 2:52 PM CDT) Phosphorus 1.8(L) 2.5 - 4.5 mg/dL 10/26/2022 3:19 PM CDT RH LABORATORY Blood STRUCTURE OF RIGHT UPPER LIMB / Unknown Venipuncture / Unknown 10/26/2022 2:52 PM CDT 10/26/2022 2:58 PM CDT Danisha Rossi PA-C LAB - BLOOD ORDERABL ES Performing Organization Address [facility] Co de Phone Number [facility] [address] Lab (1st floor, no room number) [place] [address], [facility] [phone] * Magnesium (10/26/2022 2:52 PM CDT) Magnesium 1.7 1.7 - 2.3 mg/dL 10/26/2022 3:19 PM CDT RH LABORATORY Blood STRUCTURE OF RIGHT UPPER LIMB / Unknown Venipuncture / Unknown 10/26/2022 2:52 PM CDT 10/26/2022 2:58 PM CDT Danisha Rossi PA-C LAB - BLOOD ORDERABL ES Performing Organization Address [facility]/ZIP Co de Phone Number [facility] [address] Lab (1st floor, no room number) [place] [address], [facility] [phone] * Lactic acid whole blood (10/26/2022 2:52 PM CDT) Lactic Acid 1.2 0.7 - 2.0 mmol/L 10/26/2022 3:03 PM CDT RH LABORATORY Blood STRUCTURE OF RIGHT UPPER LIMB / Unknown Venipuncture / Unknown 10/26/2022 2:52 PM CDT 10/26/2022 2:57 PM CDT Dyan Samaniego MD LAB - BLOOD ORDERA BLEDee Performing Organization Address City/[facility]/ZIP Co de Phone Number [facility] [address] Lab (1st floor, no room number) [place] [phone], [facility] [phone] * (ABNORMAL) Lactic acid whole blood (10/26/2022 11:50 AM CDT) Lactic Acid 2.8(H) 0.7 - 2.0 mmol/L 10/26/2022 11:56 AM CDT RH LABORATORY Blood STRUCTURE OF LEFT UPPER LIMB / Unknown Venipuncture / Unknown 10/26/2022 11:50 AM CDT 10/26/2022 11:53 AM CDT Dyan Samaniego MD LAB - BLOOD ORDERA BLEDee Performing Organization Address [facility]/ZIP Co de Phone Number [facility] [address] Lab (1st floor, no room number) [place] [address], [facility] [phone] * Extra Red Top Tube (10/26/2022 10:22 AM CDT) Hold Specimen JIC 10/26/2022 11:32 AM CDT RH LABORATORY Blood BLOOD SPECIMEN / Unknown Venipuncture / Unknown 10/26/2022 10:22 AM CDT 10/26/2022 10:28 AM CDT Dyan Samaniego MD LAB - BLOOD ORDERA BLEDee [facility] Lab [address] Lab (1st floor, no room number) [place] [address], [facility] [phone] * (ABNORMAL) CBC with platelets and differential (10/26/2022 10:22 AM CDT) WBC Count 5.4 4.0 - 11.0 10e3/uL 10/26/2022 10:35 AM CDT RH LABORATORY RBC Count 4.39 3.80 - 5.20 10e6/uL 10/26/2022 10:35 AM CDT RH LABORATORY Hemoglobin 13.8 11.7 - 15.7 g/dL 10/26/2022 10:35 AM CDT RH LABORATORY Hematocrit 42.8 35.0 - 47.0 % 10/26/2022 10:35 AM CDT RH LABORATORY MCV 98 78 - 100 fL 10/26/2022 10:35 AM CDT RH LABORATORY MCH 31.4 26.5 - 33.0 pg 10/26/2022 10:35 AM CDT RH LABORATORY MCHC 32.2 31.5 - 36.5 g/dL 10/26/2022 10:35 AM CDT RH LABORATORY RDW 16.1(H) 10.0 - 15.0 % 10/26/2022 10:35 AM CDT RH LABORATORY Platelet Count 250 150 - 450 10e3/uL 10/26/2022 10:35 AM CDT RH LABORATORY % Neutrophils 47 % 10/26/2022 10:35 AM CDT RH LABORATORY % Lymphocytes 42 % 10/26/2022 10:35 AM CDT RH LABORATORY % Monocytes 9 % 10/26/2022 10:35 AM CDT RH LABORATORY % Eosinophils 0 % 10/26/2022 10:35 AM CDT RH LABORATORY % Basophils 1 % 10/26/2022 10:35 AM CDT RH LABORATORY % Immature Granulocytes 1 % 10/26/2022 10:35 AM CDT RH LABORATORY NRBCs per 100 WBC 0 <1 /100 023 10:35 AM CDT RH LABORATORY Absolute Neutrophils 2.6 1.6 - 8.3 10e3/uL 10/26/2022 10:35 AM CDT RH LABORATORY Absolute Lymphocytes 2.3 0.8 - 5.3 10e3/uL 10/26/2022 10:35 AM CDT LABORATORY Absolute Monocytes 0.5 0.0 - 1.3 10e3/uL 10/26/2022 10:35 AM CDT LABORATORY Absolute Eosinophils 0.0 0.0 - 0.7 10e3/uL 10/26/2022 10:35 AM CDT LABORATORY Absolute Basophils 0.1 0.0 - 0.2 10e3/uL 10/26/2022 10:35 AM CDT LABORATORY Absolute Immature Granulocytes 0.0 <=0.4 10e3/uL 10/26/2022 10:35 AM CDT LABORATORY Absolute NRBCs 0.0 10e3/uL 10/26/2022 10:35 AM CDT LABORATORY Blood BLOOD SPECIMEN / Unknown Venipuncture / Unknown 10/26/2022 10:22 AM CDT 10/26/2022 10:28 AM CDT Dyan Samaniego MD LAB - BLOOD ORDERA BLES LABORATORY [facility] Lab [address] Lab (1st floor, no room number) [place] [address], [facility] [phone] * (ABNORMAL) Basic metabolic panel (BMP) (10/26/2022 10:22 AM CDT) Sodium 142 136 - 145 mmol/L 10/26/2022 10:59 AM CDT LABORATORY Potassium 3.6 3.4 - 5.3 mmol/L 10/26/2022 10:59 AM CDT LABORATORY Chloride 100 98 - 107 mmol/L 10/26/2022 10:59 AM CDT LABORATORY Carbon Dioxide (CO2) 25 22 - 29 mmol/L 10/26/2022 10:59 AM CDT LABORATORY Anion Gap 17(H) 7 - 15 mmol/L 10/26/2022 10:59 AM CDT LABORATORY Urea Nitrogen 8.4 8.0 - 23.0 mg/dL 10/26/2022 10:59 AM CDT LABORATORY Creatinine 0.90 0.51 - 0.95 mg/dL 10/26/2022 10:59 AM CDT LABORATORY Calcium 8.9 8.8 - 10.2 mg/dL 10/26/2022 10:59 AM CDT LABORATORY Glucose 226(H) 70 - 99 mg/dL 10/26/2022 10:59 AM CDT LABORATORY GFR Estimate 72 >60 mL/min/1.7 3m2 10/26/2022 10:59 AM CDT LABORATORY Comment:eGFR calculated usin 2020 CKD-EPI equation. Blood BLOOD SPECIMEN / Unknown Venipuncture / Unknown 10/26/2022 10:22 AM CDT 10/26/2022 10:28 AM CDT Dyan Samaniego MD LAB - BLOOD ORDERA BLES [facility] Organization Address City/State/ZIP Co de Phone Number LABORATORY [facility] Lab [address] Lab (1st floor, no room number) [place] [address], [facility] [phone] documented in this encounter Visit Diagnoses Diagnosis Nausea and vomiting, unspecified vomiting type- Primary Nausea and vomiting, unspecified vomiting type Dehydration Pancolitis (H) Vass ulcerative (chronic) colitis Nausea Nausea alone documented in this encounter Admitting Diagnoses Diagnosis Nausea and vomiting, unspecified vomiting type documented in this encounter Administered Medications Inactive Administered Medications - up to 3 most recent administrations Medication Order MAR Action Action Date Dose Rate Site 0.9% sodium chloride BOLUS Intravenous, 1,000 mL, ONCE, at 1,000 mL/hr, Administer over 1 Hours, On Tue10/26/22 at 1025, For 1 dose $New Bag 10/26/2022 10:23 AM CDT 1,000 mLs 1000 mL/hr 0.9% sodium chloride BOLUS Intravenous, 1,000 mL, ONCE, at 1,000 mL/hr, Administer over 1 Hours, On Tue10/26/22 at 1205, For 1 dose $New Bag 10/26/2022 12:11 PM CDT 1,000 mLs 1000 mL/hr acetaminophen (TYLENOL) Suppository 650 mg 650 mg, Rectal, EVERY 6 HOURS PRN, mild pain, other, and adjunct with moderate or severe pain or per patient request, Starting on Tue10/26/22 at 1510, Alternate with ibuprofen if ordered. Maximum acetaminophen dose from all sources = 75 mg/kg/day not to exceed 4 grams/day. acetaminophen (TYLENOL) tablet 650 mg 650 mg, Oral, EVERY 6 HOURS PRN, mild pain, other, and adjunct with moderate or severe pain or per patient request, Starting on Tue10/26/22 at 1510, Alternate with ibuprofen if ordered. Maximum acetaminophen dose from all sources = 75 mg/kg/day not to exceed 4 grams/day. acetaminophen (TYLENOL) tablet 975 mg 975 mg, Oral, ONCE, On Tue10/26/22 at 1135, For 1 dose, Maximum acetaminophen dose from all sources = 75 mg/kg/day not to exceed 4 grams/day. $Given 10/26/2022 11:54 AM CDT 975 mg amLODIPine (NORVASC) tablet 10 mg 10 mg, Oral, DAILY, First dose on Tue10/26/22 at 1530 $Given 10/28/2022 8:38 AM CDT 10 mg $Given 10/27/2022 9:14 AM CDT 10 mg $Given 10/26/2022 4:09 PM CDT 10 mg bisacodyl (DULCOLAX) EC tablet 10 mg 10 mg, Oral, ONCE, On Tue10/27/22 at 1530, For 1 dose, To be given now. Hold for loose stools unless being administered as part of a bowel prep regimen prior to a procedure. $Given 10/27/2022 3:32 PM CDT 10 mg brexpiprazole (REXULTI) tablet 2 mg 2 mg, Oral, DAILY, First dose on Tue10/26/22 at 1530 $Given 10/28/2022 8:37 AM CDT 2 mg $Given 10/27/2022 9:14 AM CDT 2 mg $Given 10/26/2022 4:09 PM CDT 2 mg buprenorphine HCl-naloxone HCl (SUBOXONE) 2-0.5 MG per film 1 Film 1 Film, Sublingual, 3 TIMES DAILY, First dose on Tue10/26/22 at 1530, Give SUBLINGUAL. Place under the tongue near the base on right or left side and leave until completely dissolved. Cutting film not recommended. Patient should not swallow, chew, or move film. Patient should not eat/drink until film is completely dissolved. $Given 10/28/2022 2:17 PM CDT 1 Film $Given 10/28/2022 8:40 AM CDT 1 Film $Given 10/27/2022 7:51 PM CDT 1 Film clonazePAM (klonoPIN) tablet 1 mg 1 mg, Oral, 2 TIMES DAILY, First dose on Tue10/26/22 at 1800 $Given 10/28/2022 8:37 AM CDT 1 mg $Given 10/27/2022 7:51 PM CDT 1 mg $Given 10/27/2022 9:13 AM CDT 1 mg colestipol (COLESTID) tablet 1 g 1 g, Oral, 2 TIMES DAILY, First dose on Tue10/26/22 at 1800, Other drugs should be taken 1 hr before or 4 hr after colestipol. Swallow TAB whole; DO NOT CRUSH, CUT, or CHEW. $Given 10/28/2022 8:37 AM CDT 1 g $Given 10/27/2022 7:51 PM CDT 1 g $Given 10/27/2022 9:13 AM CDT 1 g desvenlafaxine (PRISTIQ) 24 hr tablet 150 mg 150 mg, Oral, DAILY, First dose on Tue10/26/22 at 1530, DO NOT CRUSH. $Given 10/28/2022 8:37 AM CDT 150 mg $Given 10/27/2022 9:13 AM CDT 150 mg $Given 10/26/2022 4:07 PM CDT 150 mg dextrose 50 % injection 25-50 mL 25-50 mL, Intravenous, EVERY 15 MIN PRN, low blood sugar, Administer over 1-5 Minutes, Starting on Tue10/26/22 at 1511, Use if have IV access, BG less [...] glucose level is above 100 mg/dL. Vesicant. fenofibrate (LOFIBRA) tablet 54 mg 54 mg (rounded from 48 mg), Oral, DAILY, First dose on Tue10/26/22 at 1530 $Given 10/28/2022 8:36 AM CDT 54 mg $Given 10/27/2022 9:13 AM CDT 54 mg $Given 10/26/2022 4:07 PM CDT 54 mg fentaNYL (PF) (SUBLIMAZE) injection 50 mcg 50 mcg, Intravenous, EVERY 5 MIN PRN, severe pain, Give fentaNYL (SUBLIMAZE) first if HYDROmorphone (DILAUDID) also ordered., Starting on Zenaida 10/28/22 at 1205, Administer fentaNYL (SUBLIMAZE) for acute pain control. Move to HYDROmorphone (DILAUDID): - IF patient has received up to 200 mcg of fentaNYL (SUBLIMAZE), OR - IF patient has received 2 doses of fentaNYL (SUBLIMAZE) AND continues to have severe pain (pain score greater than or equal to seven (7) or is unable to participate in post op recovery due to pain. Wait 5 minutes AFTER last fentaNYL (SUBLIMAZE) dose before administering HYDROmorphone (DILADUDID). Postop Anesthesia Phase I only. Notify Provider to assess for uncontrolled pain or analgesic side effects. DO NOT revert back to fentanyl (SUBLIMAZE) after moving to HYDROmorphone (DILAUDID)., PACU $Given 10/28/2022 12:26 PM CDT 50 mcg $Given 10/28/2022 12:19 PM CDT 50 mcg glucagon injection 1 mg 1 mg, Subcutaneous, EVERY 15 MIN PRN, low blood sugar, May repeat x 1 only, Starting on Tue10/26/22 at 1511, May give SQ or IM. ONLY use glucagon IF patient has NO IV access AND is UNABLE to swallow AND blood glucose is LESS than or EQUAL to 50 mg/dL. glucose gel 15-30 g 15-30 g, Oral, EVERY 15 MIN PRN, low blood sugar, Starting on Tue10/26/22 at 1511, Give first dose for initial blood glucose [...] on I and O flowsheet. HYDROmorphone (DILAUDID) injection 0.4 mg 0.4 mg, Intravenous, EVERY 5 MIN PRN, severe pain, Starting on Zenaida 10/28/22 at 1205, Use FentaNYL (SUBLIMAZE) first if ordered. Administer HYDROmorphone (DILAUDID) up to a total of 2 mg for moderate or severe pain. Notify Provider to assess for uncontrolled pain or analgesic side effects., PACU $Given 10/28/2022 12:50 PM CDT 0.4 mg $Given 10/28/2022 12:39 PM CDT 0.4 mg hydrOXYzine (ATARAX) tablet 25 mg 25 mg, Oral, 4 TIMES DAILY, First dose on Tue10/26/22 at 1600 $Given 10/28/2022 8:37 AM CDT 25 mg $Given 10/27/2022 7:51 PM CDT 25 mg $Given 10/27/2022 3:32 PM CDT 25 mg insulin aspart (NovoLOG) injection (RAPID ACTING) 1-7 Units, Subcutaneous, 3 TIMES DAILY BEFORE MEALS, First dose on Tue10/26/22 at 1700, Correction Scale - MEDIUM INSULIN [...] 30 minutes of start of meal. $Given 10/27/2022 5:35 PM CDT 2 Units $Given 10/27/2022 9:20 AM CDT 1 Units $Given 10/26/2022 5:33 PM CDT 2 Units insulin aspart (NovoLOG) injection (RAPID ACTING) 1-5 Units, Subcutaneous, AT BEDTIME, First dose on Tue10/26/22 at 2200, MEDIUM INSULIN RESISTANCE DOSING Do [...] 30 minutes of start of meal. $Given 10/26/2022 10:56 PM CDT 1 Units insulin glargine (LANTUS PEN) injection 5 Units 5 Units, Subcutaneous, EVERY MORNING BEFORE BREAKFAST, First dose on Tue10/27/22 at 0730 $Given 10/28/2022 8:40 AM CDT 5 Units $Given 10/27/2022 9:20 AM CDT 5 Units lactated ringers infusion at 100 mL/hr, Intravenous, CONTINUOUS, Discontinue once tolerating oral intake, Starting on Tue10/26/22 at 1530, Until Tue10/27/22 at 1100 $New Bag 10/27/2022 4:51 AM CDT 100 mL/hr $New Bag 10/26/2022 6:43 PM CDT 100 mL/hr lactated ringers infusion at 75 mL/hr, Intravenous, CONTINUOUS, Starting on Tue10/28/22 at 0600, Until Tue10/28/22 at 1727 Rate/Dose Change 10/28/2022 12:00 PM CDT 400 mL/hr $New Bag 10/28/2022 5:56 AM CDT 75 mL/hr levothyroxine (SYNTHROID/LEVOTHROID) tablet 350 mcg 350 mcg, Oral, DAILY, First dose on Tue10/26/22 at 1530, Separate oral administration of iron- or calcium-containing products and levothyroxine by at least 4 hours. $Given 10/28/2022 8:36 AM CDT 350 mcg $Given 10/27/2022 9:13 AM CDT 350 mcg $Given 10/26/2022 4:08 PM CDT 350 mcg LORazepam (ATIVAN) injection 0.5 mg 0.5 mg, Intravenous, ONCE, On Tue10/26/22 at 1135, For 1 dose, This drug may cause significant respiratory depression. Monitor respiratory status and vital signs carefully for 1 hour after each dose. $Given 10/26/2022 11:55 AM CDT 0.5 mg methocarbamol (ROBAXIN) tablet 1,000 mg 1,000 mg, Oral, 4 TIMES DAILY, First dose on Tue10/26/22 at 1600 $Given 10/28/2022 8:37 AM CDT 1,000 mg $Given 10/27/2022 7:51 PM CDT 1,000 mg $Given 10/27/2022 3:32 PM CDT 1,000 mg metoprolol tartrate (LOPRESSOR) tablet 25 mg 25 mg, Oral, 2 TIMES DAILY, First dose on Tue10/26/22 at 1800 $Given 10/28/2022 8:37 AM CDT 25 mg $Given 10/27/2022 7:52 PM CDT 25 mg $Given 10/27/2022 9:14 AM CDT 25 mg naloxone (NARCAN) injection 0.2 mg 0.2 mg, Intravenous, EVERY 2 MIN PRN, opioid reversal, Starting on Tue10/27/22 at 1105, Administer intravenous route when available and notify [...] 2 MIN PRN, opioid reversal, Starting on Tue10/27/22 at 1105, Administer intramuscular if an intravenous route is [...] 2 MIN PRN, opioid reversal, Starting on Tue10/27/22 at 1105, Administer intravenous route when available and notify [...] 2 MIN PRN, opioid reversal, Starting on Tue10/27/22 at 1105, Administer intramuscular if an intravenous route is [...] doses. ondansetron (ZOFRAN ODT) ODT tab 4 mg 4 mg, Oral, EVERY 6 HOURS PRN, nausea, vomiting, Starting on Tue10/26/22 at 1504, This is Step 1 of nausea and vomiting management. If nausea not resolved in 15 minutes, go to Step 2 prochlorperazine (COMPAZINE). With dry hands, peel back foil backing and gently remove tablet. Do not push oral disintegrating tablet through foil backing. Administer immediately on tongue and oral disintegrating tablet dissolves in seconds, then swallow with saliva. Liquid not required. $Given 10/26/2022 4:28 PM CDT 4 mg ondansetron (ZOFRAN) injection 4 mg 4 mg, Intravenous, EVERY 6 HOURS PRN, nausea, vomiting, Administer over 2-5 Minutes, Starting on Tue10/26/22 at 1504, Give IF patient unable to tolerate oral medication. This is Step 1 of nausea and vomiting management. If nausea not resolved in 15 minutes, go to Step 2 prochlorperazine (COMPAZINE). Irritant. $Given 10/28/2022 3:01 AM CDT 4 mg $Given 10/27/2022 9:13 PM CDT 4 mg $Given 10/27/2022 12:51 PM CDT 4 mg ondansetron (ZOFRAN) injection 4 mg 4 mg, Intravenous, EVERY 30 MIN PRN, nausea, Administer over 2-5 Minutes, Starting on Zenaida 10/28/22 at 1207, For 2 doses, MAX total dose = 8 mg, including OR dosing. If not resolved in 15 minutes, then go to step 2 [prochlorperazine (COMPAZINE), if ordered]. Irritant., PACU $Given 10/28/2022 12:21 PM CDT 4 mg oxyCODONE (ROXICODONE) tablet 5-10 mg 5-10 mg, Oral, EVERY 4 HOURS PRN, moderate pain, Starting on Tue10/27/22 at 1054, Start with lowest available dose. Notify provider if vomiting and needs alternate route for pain med. $Given 10/28/2022 5:56 AM CDT 5 mg $Given 10/28/2022 1:40 AM CDT 5 mg $Given 10/27/2022 9:20 PM CDT 5 mg pantoprazole (PROTONIX) EC tablet 40 mg 40 mg, Oral, DAILY, First dose on Tue10/26/22 at 1530, DO NOT CRUSH. $Given 10/28/2022 8:36 AM CDT 40 mg $Given 10/27/2022 9:14 AM CDT 40 mg $Given 10/26/2022 4:09 PM CDT 40 mg polyethylene glycol (MIRALAX) powder 238 g 238 g, Oral, ONCE, On Tue10/27/22 at 1730, For 1 dose, Mix with 64 oz. of Gatorade. At 1700 begin drinking 8 oz. every 15 minutes until gone. $Given 10/27/2022 5:38 PM CDT 238 g risperiDONE (risperDAL M-TABS) ODT tab 0.5 mg 0.5 mg, Sublingual, DAILY, First dose on Tue10/26/22 at 1530 $Given 10/28/2022 8:40 AM CDT 0.5 mg $Given 10/27/2022 9:13 AM CDT 0.5 mg $Given 10/26/2022 4:09 PM CDT 0.5 mg rosuvastatin (CRESTOR) tablet 40 mg 40 mg, Oral, DAILY, First dose on Tue10/26/22 at 1530 $Given 10/28/2022 8:36 AM CDT 40 mg $Given 10/27/2022 9:14 AM CDT 40 mg $Given 10/26/2022 4:08 PM CDT 40 mg simethicone (MYLICON) chewable tablet 80 mg 80 mg, Oral, EVERY 6 HOURS PRN, cramping, Starting on Tue10/27/22 at 1106 sodium chloride (PF) 0.9% PF flush 3 mL 3 mL, Intracatheter, EVERY 1 MIN PRN, line flush, Starting on Tue10/26/22 at 1504, for peripheral IV flush post IV meds $Given 10/26/2022 4:02 PM CDT 3 mLs sodium chloride (PF) 0.9% PF flush 3 mL 3 mL, Intracatheter, EVERY 8 HOURS, First dose on Tue10/26/22 at 1530, And Q1H PRN, to lock peripheral IV dormant line. $Given 10/28/2022 8:40 AM CDT 3 mLs $Given 10/27/2022 11:40 PM CDT 3 mLs $Given 10/27/2022 3:32 PM CDT 3 mLs documented in this encounter Active and Recently Administered Medications Times are shown in CDT. Scheduled Medication Order 10/26/2022 10/27/2022 10/28/2022 0.9% sodium chloride BOLUS (COMPLETED) Intravenous, 1,000 mL, ONCE, at 1,000 mL/hr, Administer over 1 Hours, On Tue10/26/22 at 1025, For 1 dose 1023 ($New Bag - Provider: Delia Dong RN)1130 (Stopped - Provider: Jac Soriano RN) 0.9% sodium chloride BOLUS (COMPLETED) Intravenous, 1,000 mL, ONCE, at 1,000 mL/hr, Administer over 1 Hours, On Tue10/26/22 at 1205, For 1 dose 1211 ($New Bag - Provider: Jac Soriano, RN) acetaminophen (TYLENOL) tablet 975 mg (COMPLETED) 975 mg, Oral, ONCE, On Tue10/26/22 at 1135, For 1 dose, Maximum acetaminophen dose from all sources = 75 mg/kg/day not to exceed 4 grams/day. 1154 ($Given - Provider: Jac Soriano RN) amLODIPine (NORVASC) tablet 10 mg 10 mg, Oral, DAILY, First dose on Tue10/26/22 at 1530 1609 ($Given - Provider: Carter Regan RN) 0914 ($Given - Provider: Brittney Masterson RN) 0838 ($Given - Provider: Cortney Gonzalez, ZITA)1020 (Auto Hold - Provider: Orders Generic Provider - Reason: Transfer to a procedural area)1319 (Unhold - Provider: Orders Generic Provider) bisacodyl (DULCOLAX) EC tablet 10 mg (COMPLETED)(Linked Group 1) 10 mg, Oral, ONCE, On Tue10/27/22 at 1530, For 1 dose, To be given now. Hold for loose stools unless being administered as part of a bowel prep regimen prior to a procedure. 1532 ($Given - Provider: Brittney Masterson RN) brexpiprazole (REXULTI) tablet 2 mg 2 mg, Oral, DAILY, First dose on Tue10/26/22 at 1530 1609 ($Given - Provider: Carter Regan RN) 0914 ($Given - Provider: Brittney Masterson RN) 0837 ($Given - Provider: Cortney Gonzalez RN)1020 (Auto Hold - Provider: Orders Generic Provider - Reason: Transfer to a procedural area)1319 (Unhold - Provider: Orders Generic Provider) buprenorphine HCl-naloxone HCl (SUBOXONE) 2-0.5 MG per film 1 Film 1 Film, Sublingual, 3 TIMES DAILY, First dose on Tue10/26/22 at 1530, Give SUBLINGUAL. Place under the tongue near the base on right or left side and leave until completely dissolved. Cutting film not recommended. Patient should not swallow, chew, or move film. Patient should not eat/drink until film is completely dissolved. 1610 ($Given - Provider: Carter Regan RN)2107 ($Given - Provider: Carter Regan RN) 0913 ($Given - Provider: Brittney Masterson RN)1532 ($Given - Provider: Brittney Masterson RN)1950 ($Given - Provider: Carter Regan RN) 0840 ($Given - Provider: Cortney Gonzalez, RN)1020 (Auto Hold - Provider: Orders Generic Provider - Reason: Transfer to a procedural area)1319 (Unhold - Provider: Orders Generic Provider)1417 ($Given - Provider: Brittney Masterson, RN) clonazePAM (klonoPIN) tablet 1 mg 1 mg, Oral, 2 TIMES DAILY, First dose on Tue10/26/22 at 1800 1729 ($Given - Provider: Carter Regan RN) 0913 ($Given - Provider: Brittney Masterson RN)1950 ($Given - Provider: Carter Regan RN) 0837 ($Given - Provider: Cortney Gonzalez, RN)1020 (Auto Hold - Provider: Orders Generic Provider - Reason: Transfer to a procedural area)1319 (Unhold - Provider: Orders Generic Provider) colestipol (COLESTID) tablet 1 g 1 g, Oral, 2 TIMES DAILY, First dose on Tue10/26/22 at 1800, Other drugs should be taken 1 hr before or 4 hr after colestipol. Swallow TAB whole; DO NOT CRUSH, CUT, or CHEW. 1727 ($Given - Provider: Carter Regan RN) 0913 ($Given - Provider: Brittney Masterson RN)1950 ($Given - Provider: Carter Regan RN) 0837 ($Given - Provider: Cortney Gonzalez, RN)1020 (Auto Hold - Provider: Orders Generic Provider - Reason: Transfer to a procedural area)1319 (Unhold - Provider: Orders Generic Provider) desvenlafaxine (PRISTIQ) 24 hr tablet 150 mg 150 mg, Oral, DAILY, First dose on Tue10/26/22 at 1530, DO NOT CRUSH. 1607 ($Given - Provider: Carter Regan RN) 0913 ($Given - Provider: Brittney Masterson RN) 0837 ($Given - Provider: Cortney Gonzalez, RN)1020 (Auto Hold - Provider: Orders Generic Provider - Reason: Transfer to a procedural area)1319 (Unhold - Provider: Orders Generic Provider) fenofibrate (LOFIBRA) tablet 54 mg 54 mg (rounded from 48 mg), Oral, DAILY, First dose on Tue10/26/22 at 1530 1607 ($Given - Provider: Carter Regan RN) 0913 ($Given - Provider: Brittney Masterson RN) 0836 ($Given - Provider: Cortney Gonzalez, RN)1020 (Auto Hold - Provider: Orders Generic Provider - Reason: Transfer to a procedural area)1319 (Unhold - Provider: Orders Generic Provider) hydrOXYzine (ATARAX) tablet 25 mg 25 mg, Oral, 4 TIMES DAILY, First dose on Tue10/26/22 at 1600 1609 ($Given - Provider: Carter Regan RN)2106 ($Given - Provider: Carter Regan RN) 0913 ($Given - Provider: Birttney Masterson RN)1122 ($Given - Provider: Brittney Masterson RN)1532 ($Given - Provider: Brittney Masterson RN)1951 ($Given - Provider: Carter Regan RN) 0837 ($Given - Provider: Cortney Gonzalez, ZITA)1020 (Auto Hold - Provider: Orders Generic Provider - Reason: Transfer to a procedural area)1200 (Automatically Held - Provider: Orders Generic Provider)1319 (Unhold - Provider: Orders Generic Provider)1600 (Canceled Entry - Provider: Orders Generic Provider - Comment: Automatically canceled at discontinue of medication order) insulin aspart (NovoLOG) injection (RAPID ACTING) 1-7 Units, Subcutaneous, 3 TIMES DAILY BEFORE MEALS, First dose on Tue10/26/22 at 1700, Correction Scale - MEDIUM INSULIN [...] within 30 minutes of start of meal. 1733 ($Given - Provider: Carter Regan RN) 0920 ($Given - Provider: Brittney Masterson, ZITA)1251 (Not Given - Provider: Brittney Masterson RN - Reason: Patient/family refused)1735 ($Given - Provider: Carter Regan, ZITA) 0830 (Not Given - Provider: Cortney Gonzalez, RN - Reason: Order parameters not met)1020 (Auto Hold - Provider: Orders Generic Provider - Reason: Transfer to a procedural area)1200 (Automatically Held - Provider: Orders Generic Provider)1319 (Unhold - Provider: Orders Generic Provider)1700 (Canceled Entry - Provider: Orders Generic Provider - Comment: Automatically canceled at discontinue of medication order) insulin aspart (NovoLOG) injection (RAPID ACTING) 1-5 Units, Subcutaneous, AT BEDTIME, First dose on Tue10/26/22 at 2200, MEDIUM INSULIN RESISTANCE DOSING Do [...] within 30 minutes of start of meal. 2256 ($Given - Provider: Carter Regan RN) 2122 (Not Given - Provider: Carter Regan RN - Reason: Order parameters not met) 1020 (Auto Hold - Provider: Orders Generic Provider - Reason: Transfer to a procedural area)1319 (Unhold - Provider: Orders Generic Provider) insulin glargine (LANTUS PEN) injection 5 Units 5 Units, Subcutaneous, EVERY MORNING BEFORE BREAKFAST, First dose on Tue10/27/22 at 0730 0920 ($Given - Provider: Brittney Masterson RN) 0840 ($Given - Provider: Cortney Gonzalez, ZITA)1020 (Auto Hold - Provider: Orders Generic Provider - Reason: Transfer to a procedural area)1319 (Unhold - Provider: Orders Generic Provider) levothyroxine (SYNTHROID/LEVOTHROID) tablet 350 mcg 350 mcg, Oral, DAILY, First dose on Tue10/26/22 at 1530, Separate oral administration of iron- or calcium-containing products and levothyroxine by at least 4 hours. 1608 ($Given - Provider: Carter Regan RN) 0913 ($Given - Provider: Brittney Masterson RN) 0836 ($Given - Provider: Cortney Gonzalez, RN)1020 (Auto Hold - Provider: Orders Generic Provider - Reason: Transfer to a procedural area)1319 (Unhold - Provider: Orders Generic Provider) LORazepam (ATIVAN) injection 0.5 mg (COMPLETED) 0.5 mg, Intravenous, ONCE, On Tue10/26/22 at 1135, For 1 dose, This drug may cause significant respiratory depression. Monitor respiratory status and vital signs carefully for 1 hour after each dose. 1155 ($Given - Provider: Jac Soriano RN) methocarbamol (ROBAXIN) tablet 1,000 mg 1,000 mg, Oral, 4 TIMES DAILY, First dose on Tue10/26/22 at 1600 1609 ($Given - Provider: Carter Regan RN)2105 ($Given - Provider: Carter Regan, ZITA) 0913 ($Given - Provider: Brittney Masterson, ZITA)1122 ($Given - Provider: Brittney Masterson RN)1532 ($Given - Provider: Brittney Masterson, ZITA)1951 ($Given - Provider: Carter Regan RN) 0837 ($Given - Provider: Cortney Gonzalez, ZITA)1020 (Auto Hold - Provider: Orders Generic Provider - Reason: Transfer to a procedural area)1200 (Automatically Held - Provider: Orders Generic Provider)1319 (Unhold - Provider: Orders Generic Provider)1600 (Canceled Entry - Provider: Orders Generic Provider - Comment: Automatically canceled at discontinue of medication order) metoprolol tartrate (LOPRESSOR) tablet 25 mg 25 mg, Oral, 2 TIMES DAILY, First dose on Tue10/26/22 at 1800 1727 ($Given - Provider: Carter Regan RN) 0914 ($Given - Provider: Brittney Masterson RN)1952 ($Given - Provider: Carter Regan RN) 0837 ($Given - Provider: Cortney Gonzalez, ZITA)1020 (Auto Hold - Provider: Orders Generic Provider - Reason: Transfer to a procedural area)1319 (Unhold - Provider: Orders Generic Provider) pantoprazole (PROTONIX) EC tablet 40 mg 40 mg, Oral, DAILY, First dose on Tue10/26/22 at 1530, DO NOT CRUSH. 1609 ($Given - Provider: Carter Regan, ZITA) 0914 ($Given - Provider: Brittney Masterson, RN) 0836 ($Given - Provider: Cortney Gonzalez, RN)1020 (Auto Hold - Provider: Orders Generic Provider - Reason: Transfer to a procedural area)1319 (Unhold - Provider: Orders Generic Provider) polyethylene glycol (MIRALAX) powder 238 g (COMPLETED)(Linked Group 1) 238 g, Oral, ONCE, On Tue10/27/22 at 1730, For 1 dose, Mix with 64 oz. of Gatorade. At 1700 begin drinking 8 oz. every 15 minutes until gone. 1738 ($Given - Provider: Carter Regan RN - Comment: 1740 Start) risperiDONE (risperDAL M-TABS) ODT tab 0.5 mg 0.5 mg, Sublingual, DAILY, First dose on Tue10/26/22 at 1530 1609 ($Given - Provider: Carter Regan RN) 0913 ($Given - Provider: Brittney Masterson, ZITA) 0840 ($Given - Provider: Cortney Gonzalez, RN)1020 (Auto Hold - Provider: Orders Generic Provider - Reason: Transfer to a procedural area)1319 (Unhold - Provider: Orders Generic Provider) rosuvastatin (CRESTOR) tablet 40 mg 40 mg, Oral, DAILY, First dose on Tue10/26/22 at 1530 1608 ($Given - Provider: Carter Regan RN) 0914 ($Given - Provider: Brittney Masterson, RN) 0836 ($Given - Provider: Cortney Gonzalez, RN)1020 (Auto Hold - Provider: Orders Generic Provider - Reason: Transfer to a procedural area)1319 (Unhold - Provider: Orders Generic Provider) sodium chloride (PF) 0.9% PF flush 3 mL 3 mL, Intracatheter, EVERY 8 HOURS, First dose on Tue10/26/22 at 1530, And Q1H PRN, to lock peripheral IV dormant line. 1843 ($Given - Provider: Carter Regan RN - Comment: New Line)2233 (Not Given - Provider: Carter Regan RN - Reason: IV Infusing) 0920 (Not Given - Provider: Brittney Masterson RN - Reason: IV Infusing)1532 ($Given - Provider: Brittney Masterson, ZITA)2340 ($Given - Provider: Evi Gonzalez, ZITA) 0840 ($Given - Provider: Cortney Gonzalez RN)1020 (Auto Hold - Provider: Orders Generic Provider - Reason: Transfer to a procedural area)1319 (Unhold - Provider: Orders Generic Provider)1600 (Canceled Entry - Provider: Orders Generic Provider - Comment: Automatically canceled at discontinue of medication order) Continuous Medication Order 10/26/2022 10/27/2022 10/28/2022 lactated ringers infusion (CANCELED) at 100 mL/hr, Intravenous, CONTINUOUS, Discontinue once tolerating oral intake, Starting on Tue10/26/22 at 1530, Until Tue10/27/22 at 1100 1843 ($New Bag - Provider: Carter Regan RN - Comment: New Line) 0451 ($New Bag - Provider: Agustin Wong RN)1251 (Stopped - Provider: Brittney Masterson RN) lactated ringers infusion at 75 mL/hr, Intravenous, CONTINUOUS, Starting on Tue10/28/22 at 0600, Until Tue10/28/22 at 1727 0556 ($New Bag - Provider: Evi Gonzalez, ZITA)1200 (Rate/Dose Change - Provider: Lenka Fan, [employer]) PRN Medication Order 10/26/2022 10/27/2022 10/28/2022 acetaminophen (TYLENOL) Suppository 650 mg(Linked Group 2) 650 mg, Rectal, EVERY 6 HOURS PRN, mild pain, other, and adjunct with moderate or severe pain or per patient request, Starting on Tue10/26/22 at 1510, Alternate with ibuprofen if ordered. Maximum acetaminophen dose from all sources = 75 mg/kg/day not to exceed 4 grams/day. 1732 (See Alternative - Provider: Carter Regan, RN) 1020 (Auto Hold - Provider: Orders Generic Provider - Reason: Transfer to a procedural area)1319 (Unhold - Provider: Orders Generic Provider) acetaminophen (TYLENOL) tablet 650 mg(Linked Group 2) 650 mg, Oral, EVERY 6 HOURS PRN, mild pain, other, and adjunct with moderate or severe pain or per patient request, Starting on Tue10/26/22 at 1510, Alternate with ibuprofen if ordered. Maximum acetaminophen dose from all sources = 75 mg/kg/day not to exceed 4 grams/day. 1732 (Not Given - Provider: Carter Regan, ZITA - Reason: Patient/family refused) 1020 (Auto Hold - Provider: Orders Generic Provider - Reason: Transfer to a procedural area)1319 (Unhold - Provider: Orders Generic Provider) albuterol (PROVENTIL HFA/VENTOLIN HFA) inhaler 2 puff, Inhalation, EVERY 4 HOURS PRN, shortness of breath, wheezing, Starting on Tue10/26/22 at 1458, Check the dose counter on the inhaler to ensure there are doses remaining before administering. 1020 (Auto Hold - Provider: Orders Generic Provider - Reason: Transfer to a procedural area)1319 (Unhold - Provider: Orders Generic Provider) dextrose 50 % injection 25-50 mL(Linked Group 3) 25-50 mL, Intravenous, EVERY 15 MIN PRN, low blood sugar, Administer over 1-5 Minutes, Starting on Tue10/26/22 at 1511, Use if have IV access, BG less [...] glucose level is above 100 mg/dL. Vesicant. 1020 (Auto Hold - Provider: Orders Generic Provider - Reason: Transfer to a procedural area)1319 (Unhold - Provider: Orders Generic Provider) fentaNYL (PF) (SUBLIMAZE) injection 50 mcg (CANCELED) 50 mcg, Intravenous, EVERY 5 MIN PRN, severe pain, Give fentaNYL (SUBLIMAZE) first if HYDROmorphone (DILAUDID) also ordered., Starting on Zenaida 10/28/22 at 1205, Administer fentaNYL (SUBLIMAZE) for acute pain control. Move to HYDROmorphone (DILAUDID): - IF patient has received up to 200 mcg of fentaNYL (SUBLIMAZE), OR - IF patient has received 2 doses of fentaNYL (SUBLIMAZE) AND continues to have severe pain (pain score greater than or equal to seven (7) or is unable to participate in post op recovery due to pain. Wait 5 minutes AFTER last fentaNYL (SUBLIMAZE) dose before administering HYDROmorphone (DILADUDID). Postop Anesthesia Phase I only. Notify Provider to assess for uncontrolled pain or analgesic side effects. DO NOT revert back to fentanyl (SUBLIMAZE) after moving to HYDROmorphone (DILAUDID)., PACU 1219 ($Given - Provider: Asia Dixon RN)1226 ($Given - Provider: Asia Dixon RN) glucagon injection 1 mg(Linked Group 3) 1 mg, Subcutaneous, EVERY 15 MIN PRN, low blood sugar, May repeat x 1 only, Starting on e 10/26/22 at 1511, May give SQ or IM. ONLY use glucagon IF patient has NO IV access AND is UNABLE to swallow AND blood glucose is LESS than or EQUAL to 50 mg/dL. 1020 (Auto Hold - Provider: Orders Generic Provider - Reason: Transfer to a procedural area)1319 (Unhold - Provider: Orders Generic Provider) glucose gel 15-30 g(Linked Group 3) 15-30 g, Oral, EVERY 15 MIN PRN, low blood sugar, Starting on Tue10/26/22 at 1511, Give first dose for initial blood glucose [...] Document juice on I and O flowsheet. 1020 (Auto Hold - Provider: Orders Generic Provider - Reason: Transfer to a procedural area)1319 (Unhold - Provider: Orders Generic Provider) HYDROmorphone (DILAUDID) injection 0.4 mg (CANCELED) 0.4 mg, Intravenous, EVERY 5 MIN PRN, severe pain, Starting on Zenaida 10/28/22 at 1205, Use FentaNYL (SUBLIMAZE) first if ordered. Administer HYDROmorphone (DILAUDID) up to a total of 2 mg for moderate or severe pain. Notify Provider to assess for uncontrolled pain or analgesic side effects., PACU 1239 ($Given - Provider: Asia Dixon RN)1250 ($Given - Provider: Asia Dixon RN) lidocaine (LMX4) cream Topical, EVERY 1 HOUR PRN, pain, with VAD insertion or accessing implanted port., Starting on 10/26/22 at 1504, Do NOT give if patient has a history of allergy to any local anesthetic or any teri product. Apply at least 30 minutes prior to VAD insertion or port access. In divided doses as needed for size of site for VAD insertion with MAX Dose: 2.5 g (?? of 5 g tube). 1020 (Auto Hold - Provider: Orders Generic Provider - Reason: Transfer to a procedural area)1319 (Unhold - Provider: Orders Generic Provider) lidocaine 1 % 0.1-1 mL 0.1-1 mL, Other, EVERY 1 HOUR PRN, mild pain with VAD insertion., Starting on 10/26/22 at 1504, Do NOT give if patient has a history of allergy to any local anesthetic or any teri product. MAX dose 1 mL subcutaneous OR intradermal in divided doses as needed for VAD insertion. 1020 (Auto Hold - Provider: Orders Generic Provider - Reason: Transfer to a procedural area)1319 (Unhold - Provider: Orders Generic Provider) melatonin tablet 1 mg 1 mg, Oral, AT BEDTIME PRN, sleep, Starting on Tue10/26/22 at 1504, Do not give unless at least 6 hours of uninterrupted sleep is expected. 1020 (Auto Hold - Provider: Orders Generic Provider - Reason: Transfer to a procedural area)1319 (Unhold - Provider: Orders Generic Provider) naloxone (NARCAN) injection 0.2 mg(Linked Group 4) 0.2 mg, Intravenous, EVERY 2 MIN PRN, opioid reversal, Starting on Tue10/27/22 at 1105, Administer intravenous route when available and notify [...] have not improved after 4 naloxone doses. 1020 (Auto Hold - Provider: Orders Generic Provider - Reason: Transfer to a procedural area)1319 (Unhold - Provider: Orders Generic Provider) naloxone (NARCAN) injection 0.2 mg(Linked Group 4) 0.2 mg, Intramuscular, EVERY 2 MIN PRN, opioid reversal, Starting on Tue10/27/22 at 1105, Administer intramuscular if an intravenous route is [...] have not improved after 4 naloxone doses. 1020 (Auto Hold - Provider: Orders Generic Provider - Reason: Transfer to a procedural area)1319 (Unhold - Provider: Orders Generic Provider) naloxone (NARCAN) injection 0.4 mg(Linked Group 4) 0.4 mg, Intravenous, EVERY 2 MIN PRN, opioid reversal, Starting on Tue10/27/22 at 1105, Administer intravenous route when available and notify [...] have not improved after 4 naloxone doses. 1020 (Auto Hold - Provider: Orders Generic Provider - Reason: Transfer to a procedural area)1319 (Unhold - Provider: Orders Generic Provider) naloxone (NARCAN) injection 0.4 mg(Linked Group 4) 0.4 mg, Intramuscular, EVERY 2 MIN PRN, opioid reversal, Starting on Tue10/27/22 at 1105, Administer intramuscular if an intravenous route is [...] have not improved after 4 naloxone doses. 1020 (Auto Hold - Provider: Orders Generic Provider - Reason: Transfer to a procedural area)1319 (Unhold - Provider: Orders Generic Provider) ondansetron (ZOFRAN ODT) ODT tab 4 mg(Linked Group 5) 4 mg, Oral, EVERY 6 HOURS PRN, nausea, vomiting, Starting on Tue10/26/22 at 1504, This is Step 1 of nausea and vomiting management. If nausea not resolved in 15 minutes, go to Step 2 prochlorperazine (COMPAZINE). With dry hands, peel back foil backing and gently remove tablet. Do not push oral disintegrating tablet through foil backing. Administer immediately on tongue and oral disintegrating tablet dissolves in seconds, then swallow with saliva. Liquid not required. 1620 (See Alternative - Provider: Carter Regan RN)1628 ($Given - Provider: Carter Regan RN)2238 (See Alternative - Provider: Carter Regan RN) 1251 (See Alternative - Provider: Brittney Masterson RN)2113 (See Alternative - Provider: Carter Regan RN) 0301 (See Alternative - Provider: Evi Gonzalez RN)1020 (Auto Hold - Provider: Orders Generic Provider - Reason: Transfer to a procedural area)1319 (Unhold - Provider: Orders Generic Provider) ondansetron (ZOFRAN) injection 4 mg(Linked Group 5) 4 mg, Intravenous, EVERY 6 HOURS PRN, nausea, vomiting, Administer over 2-5 Minutes, Starting on Tue10/26/22 at 1504, Give IF patient unable to tolerate oral medication. This is Step 1 of nausea and vomiting management. If nausea not resolved in 15 minutes, go to Step 2 prochlorperazine (COMPAZINE). Irritant. 1620 (Not Given - Provider: Carter Regan RN - Reason: Other - Comment: IV Unable to Flush)1628 (See Alternative - Provider: Carter Regan RN)2238 ($Given - Provider: Carter Regan RN) 1251 ($Given - Provider: Brittney Masterson RN)2113 ($Given - Provider: Carter Regan RN) 0301 ($Given - Provider: Evi Gonzalez, ZITA)1020 (Auto Hold - Provider: Orders Generic Provider - Reason: Transfer to a procedural area)1319 (Unhold - Provider: Orders Generic Provider) ondansetron (ZOFRAN) injection 4 mg (CANCELED)(Linked Group 6) 4 mg, Intravenous, EVERY 30 MIN PRN, nausea, Administer over 2-5 Minutes, Starting on Zenaida 10/28/22 at 1207, For 2 doses, MAX total dose = 8 mg, including OR dosing. If not resolved in 15 minutes, then go to step 2 [prochlorperazine (COMPAZINE), if ordered]. Irritant., PACU 1221 ($Given - Provider: Asia Dixon RN) oxyCODONE (ROXICODONE) tablet 5-10 mg (CANCELED) 5-10 mg, Oral, EVERY 4 HOURS PRN, moderate pain, Starting on 10/27/22 at 1054, Start with lowest available dose. Notify provider if vomiting and needs alternate route for pain med. 1122 ($Given - Provider: Brittney Masterson RN)1636 ($Given - Provider: Carter Regan RN)2120 ($Given - Provider: Carter Regan RN) 0140 ($Given - Provider: Evi Gonzalez, ZITA)0556 ($Given - Provider: Evi Gonzalez RN)1020 (Auto Hold - Provider: Orders Generic Provider - Reason: Transfer to a procedural area)1215 (Unhold - Provider: Ann Fajardo [facility]) simethicone (MYLICON) chewable tablet 80 mg 80 mg, Oral, EVERY 6 HOURS PRN, cramping, Starting on Tue10/27/22 at 1106 1020 (Auto Hold - Provider: Orders Generic Provider - Reason: Transfer to a procedural area)1319 (Unhold - Provider: Orders Generic Provider) sodium chloride (PF) 0.9% PF flush 3 mL 3 mL, Intracatheter, EVERY 1 MIN PRN, line flush, Starting on Tue10/26/22 at 1504, for peripheral IV flush post IV meds 1602 ($Given - Provider: Carter Regan RN) 1020 (Auto Hold - Provider: Orders Generic Provider - Reason: Transfer to a procedural area)1319 (Unhold - Provider: Orders Generic Provider) Linked Groups Order Group 1: bisacodyl (DULCOLAX) EC tablet 10 mg (COMPLETED)Jump to med 10 mg, Oral, ONCE, On Tue10/27/22 at 1530, For 1 dose, To be given now. Hold for loose stools unless being administered as part of a bowel prep regimen prior to a procedure. Followed by polyethylene glycol (MIRALAX) powder 238 g (COMPLETED)Jump to med 238 g, Oral, ONCE, On Tue10/27/22 at 1730, For 1 dose, Mix with 64 oz. of Gatorade. At 1700 begin drinking 8 oz. every 15 minutes until gone. Group 2: acetaminophen (TYLENOL) tablet 650 mgJump to med 650 mg, Oral, EVERY 6 HOURS PRN, mild pain, other, and adjunct with moderate or severe pain or per patient request, Starting on Tue10/26/22 at 1510, Alternate with ibuprofen if ordered. Maximum acetaminophen dose from all sources = 75 mg/kg/day not to exceed 4 grams/day. Or acetaminophen (TYLENOL) Suppository 650 mgJump to med 650 mg, Rectal, EVERY 6 HOURS PRN, mild pain, other, and adjunct with moderate or severe pain or per patient request, Starting on Tue10/26/22 at 1510, Alternate with ibuprofen if ordered. Maximum acetaminophen dose from all sources = 75 mg/kg/day not to exceed 4 grams/day. Group 3: glucose gel 15-30 gJump to med 15-30 g, Oral, EVERY 15 MIN PRN, low blood sugar, Starting on Tue10/26/22 at 1511, Give first dose for initial blood glucose [...] sugar, Administer over 1-5 Minutes, Starting on Tue10/26/22 at 1511, Use if have IV access, BG less [...] May repeat x 1 only, Starting on Tue10/26/22 at 1511, May give SQ or IM. ONLY use glucagon IF patient has NO IV access AND is UNABLE to swallow AND blood glucose is LESS than or EQUAL to 50 mg/dL. Group 4: naloxone (NARCAN) injection 0.2 mgJump to med 0.2 mg, Intravenous, EVERY 2 MIN PRN, opioid reversal, Starting on Tue10/27/22 at 1105, Administer intravenous route when available and notify [...] 2 MIN PRN, opioid reversal, Starting on Tue10/27/22 at 1105, Administer intravenous route when available and notify [...] 2 MIN PRN, opioid reversal, Starting on Tue10/27/22 at 1105, Administer intramuscular if an intravenous route is [...] 2 MIN PRN, opioid reversal, Starting on Tue10/27/22 at 1105, Administer intramuscular if an intravenous route is [...] not improved after 4 naloxone doses. Group 5: ondansetron (ZOFRAN ODT) ODT tab 4 mgJump to med 4 mg, Oral, EVERY 6 HOURS PRN, nausea, vomiting, Starting on Tue10/26/22 at 1504, This is Step 1 of nausea and [...] vomiting, Administer over 2-5 Minutes, Starting on Tue10/26/22 at 1504, Give IF patient unable to tolerate oral medication. This is Step 1 of nausea and vomiting management. If nausea not resolved in 15 minutes, go to Step 2 prochlorperazine (COMPAZINE). Irritant. Group 6: ondansetron (ZOFRAN ODT) ODT tab 4 mg (CANCELED) 4 mg, Oral, EVERY 30 MIN PRN, nausea, Starting on Zenaida 10/28/22 at 1207, For 2 doses, MAX total dose = 8 mg, including OR dosing. If not resolved in 15 minutes, then go to step 2 [prochlorperazine (COMPAZINE), if ordered]. With dry hands, peel back foil backing and gently remove tablet. Do not push oral disintegrating tablet through foil backing. Administer immediately on tongue and oral disintegrating tablet dissolves in seconds, then swallow with saliva. Liquid not required., PACU Or ondansetron (ZOFRAN) injection 4 mg (CANCELED)Jump to med 4 mg, Intravenous, EVERY 30 MIN PRN, nausea, Administer over 2-5 Minutes, Starting on Tue10/28/22 at 1207, For 2 doses, MAX total dose = 8 mg, including OR dosing. If not resolved in 15 minutes, then go to step 2 [prochlorperazine (COMPAZINE), if ordered]. Irritant., PACU documented in this encounter Additional Health Concerns Infection Onset Date Last Indicated Resolved Time C-difficile 10/15/2022 10/27/2022 11/26/2022 11:4 0 PM CDT Rule Out C-difficile 10/26/2022 10/27/2022 023 2:14 AM CDT Assessment Noted Time PHQ-9 Depression Total Score: 10 023 2:06 PM CDT documented as of this encounter Care Teams Director Of People Relationship Specialty [place] [id number] [place] [address] PCP - General Family Medicine 05/18/22 Jovany Gonzalez MD [facility] [address] [facility] [address] [place] [address] Orthopedics 02/15/17 Staci Woodward, FLOAT OPERATOR [place] [address] [place] [address] Nurse Practitioner Nurse Practitioner Psych/Mental Health 05/10/17 Reanna Smith, RD [place] [address] [place], [place] [phone] Painting Trades Worker Dietitian, Registered 07/25/19 Roshni Nascimento, RN Personal Advocate & Liaison (PAL) Family Medicine 08/18/20 Kiet Swain MD [address] [place] [id number] Referring Physician Psychiatry 09/19/20 Winsome Pike APRN [employer] [address] [place] [id number] Nurse Practitioner Psychiatry 09/19/20 Tori Hines, [facility] [address] [place] [address] [id number] Beef Lugger Beef Lugger - Clinical 09/19/20 Miranda Queen [facility] [address] [place] [address] Pharmacist Pharmacist 11/12/20 Marisel Armando MD [address] [place], [place] [phone] Gastroenterology 02/05/21 Marisel Armando MD [address] [place], [place] [phone] Assigned Gastroenterology Provider 03/08/21 12/24/22 Wesley Barrett MD [address] [facility] [address] [place] [address] Assigned Neuroscience Provider 05/10/21 [place] [address] [place] [address] Assigned PCP 05/15/22 Katiana Read MD [address] [place] [address] [address] [place], [place] [address] Assigned Endocrinology Provider 06/19/22 [place] [address] [place] [id number] Assigned Behavioral Health Provider 07/03/22 12/31/22 Deena Garza, OUTDOOR FITNESS TRAINER [employer] [address] [place] [id number] Assigned Pain Medication Provider 07/19/22 10/29/22 Mary Del Cid, RAFAEL [address] [place] [id number] Nurse Practitioner Nurse Practitioner 10/18/22 Elham Stack, [facility] [address] [place] [address] Pharmacist Pharmacist 10/19/22 Michelle Guzman, ERIC, Podiatry/Foot and Ankle Surgery [address] [place] [address] [place] [id number] Assigned Musculoskeletal Provider 10/16/22 04/08/23 documented as of this encounter
--- OUTSIDE RECORDS SUMMARY | 2023-08-03 10:03 | XMS_ITS | Encounter Summary ---
Author Name Unknown Organization [facility] Address [address] [place] [address]. [place] [address] Care Team Providers Care Dietary Aid Name Role Phone Jovany Gonzalez MD Unavailable CrissyStaci jeong NP Unavailable [phone] Unavailable Roshni Nascimento RN Unavailable Unavailable Kiet Swain MD Unavailable [phone] Winsome Pike APRN JUTE BAG CLIPPER Unavailable [phone] Tori HinesSW Unavailable Miranda Queen [facility] Unavailable Unavailable Marisel Armando MD Unavailable Marisel Armando MD Unavailable Wesley Barrett MD Unavailable [phone] Dyan Fuentes MD Primary Care Provider [phone] Dyan Fuentes MD Unavailable [phone] Katiana Read MD Unavailable [phone] Meme Singleton PhD Unavailable [phone] Deena Garza DECORATOR LIGHTING FIXTURES JUTE BAG CLIPPER Unavailable [phone] Mary Del Cid BLADE ALIGNER Unavailable [phone] Elham Stack [facility] Unavailable Michelle Guzman DPM, Podiatry /Foot and Ankle Surgery Unavailable Reason for Visit * Reason Comments Nausea, Vomiting, & Diarrhea * Auth/Cert (Routine) Specialty Diagnoses / Procedures Referred By Jose R kelly Referred To Contact Med Surg Diagnoses Dehydration Nausea and vomiting, unspecified vomiting type Nausea and vomiting, unspecified vomiting type Observation Dept [address] [place] [address] Referral ID Status Reason Start Date Expiration Date Visits Re quested Visits Authorized [id number] 1 1 Encounter Details Date Type Department Care Team (Late st Contact Info) Description 10/28/2022 11:30 AM CDT - 10/28/2022 12:[address] [facility] PeriOp Services [address] [place] [address] Jeffry Fajardo MD [facility] [address] [place] [address] COLONOSCOPY with biopsies Surgery Details Date/Time Status Location OR Service Patient Class Case Class Case Type Trauma Case? 10/28/22 11:30 AM Posted OR OR 05 Gastroenterology Inpatient Panel 1 Procedure LRB Anes Op Region Wound Class Comments COLONOSCOPY with biopsies N/A MAC Rectum II-C lean Contaminated Surgeon Surgeon Role Service Panel Jeffry Fajardo MD Primary Gastroenterolo gy 1 documented in this encounter Social History Tobacco [...] How often do you attend chur or christianity services? 1 to 4 times per year [...] Answer Date Recorded PHQ-2 Score 2 10/25/2022 [facility] - Occupational Stress [...] in a long-term (including now)? No 10/16/2021 Education Answer Date [...] Sign Reading Time Taken Comments Blood Pressure 116/73 10/28/2022 12:15 PM CDT Pulse 70 10/28/2022 12:15 PM CDT Temperature 36.6 ??C (97.8 ??F) 10/28/2022 12:05 PM C DT Respiratory Rate 16 10/28/2022 12:05 PM CDT Oxygen Saturation 99% 10/28/2022 12:15 PM CDT Inhaled Oxygen Concentration - - Weight 106.1 kg (234 lb) 10/26/2022 2:08 PM CDT Height 172.7 cm (5' 8) 10/26/2022 2:08 PM CDT Body Mass Index 35.58 10/26/2022 2:08 PM CDT documented in this encounter Discharge Summaries * Melissa Ivan PA-C - 10/28/2022 3:23 PM CDT [facility] Hospitalist Discharge Summary Date of Admission: [...] and vomiting on 10/26/2022. ?? Hospitalized at [facility] on 10/17 after presenting for nausea, vomiting, [...] and back, right hip pain - continue police captain senior buprenorphine, does report breakthrough abdominal pain - PRN oxycodone was prescribed during the hospital admission patient utilized appropriately and didnot discharge with additional narcotics outside of her prior to admission buprenorphine ?? Type 2 DM - reduce police captain senior dose 10 units to 5 units for now, until tolerating oral intake - sliding scale insulin - blood sugars 151-215 ?? COPD - not in acute exacerbation ?? 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 HTN HLD - continue police captain senior??amlodipine, metoprolol,??fenofibrate, colestipol,??Crestor ?? Anxiety -Continue FLAT SCREEN WORKER Rexulti, klonopin,??Pristiq,??risperidone ?? Consultations This Hospital Stay GASTROENTEROLOGY IP CONSULT CARE MANAGEMENT / SOCIAL WORK IP CONSULT Code Status Full Code Time Spent on this Encounter IMelissa PA-C, personally saw the patient today and [...] EXAM: CT ABDOMEN PELVIS W CONTRAST LOCATION: [facility] DATE/TIME: 10/14/2022 10:45 PM INDICATION: Generalized abdominal [...] Benign essential hypertension naloxone (NARCAN) nasal spray [place] 1 spray (4 mg) into one nostril alternating nostrils as needed Qty: 0.2 mL, Refills: 0 Associated Diagnoses: At risk for substance overdose nitroGLYcerin (NITROSTAT) 0.[address] 1 tablet (0.4 mg) under the tongue every 5minutes as needed for chest pain Qty: 25 tablet, Refills: 0 Associated Diagnoses: Chest pain, unspecified type nystatin (MYCOSTATIN) 198919 UNIT/GM external ointment Apply topically 2 times [...] tablet by mouth daily Continuous Blood Gluc Dehydrating Press Operator (DEXCOM G6 QC LAB TECHNICIAN) ANITA USE DAILY Qty: 1 each, Refills: [...] 2 times daily 0 Continuous Blood Gluc Dehydrating Press Operator (DEXCOM G6 QC LAB TECHNICIAN) DEVIIndications:Type 2 diabetes mellitus without complication, with [...] pain 25 tablet 0 08/20/2019 nystatin (MYCOSTATIN) 937161 UNIT/GM external ointment Apply topically 2 times [...] Take 1 tablet by mouth daily 0 lactobacillus rhamnosus, GG, (CULTURELL) capsuleIndications:C. difficile colitis [...] every morning 15 mL 1 05/07/2022 04/25/2023 insulin pen needle (31G X 5 MM) 31G X 5 MM miscellaneousIndicati ons:Type 2 diabetes mellitus without complication, with long-term current use of insulin (H) Use 1 pen needles daily or as directed. 100 each 0 12/14/2021 12/03/2022 levothyroxine (SYNTHROID/LEVOTHROID ) 175 MCG tabletIndications:Pos tprocedural [...] (NARCAN) nasal sprayIndications:At risk for substance overdose Davenport 1 spray (4 mg) into one nostril [...] Ivan PA-C - 10/27/2022 10:48 AM CDT [facility] Progress Note - Hospitalist Service Date of Admission: 10/26/2022 Assessment & Plan Kaila Hernandez is a 61 year old female with PMhx of chronic pain on buprenorphine, COPD, GERD, anxiety, anemia, DMT2, pancreatitis, remote history of C. difficile statuspost prior fecal transplant, who was re- admitted with abdominal pain, nausea and vomiting on 10/26/2022. Hospitalized at [facility] on 10/17 after presenting for nausea, vomiting, [...] for IBD. Of note had colonoscopy in 2016 showing large amount of bile salts, is [...] and back, right hip pain - continue police captain senior buprenorphine, does report breakthrough abdominal pain - PRN oxycodone available ?? Type 2 DM - reduce police captain senior dose 10 units to 5 units for now, until tolerating oral intake - sliding scale insulin - blood sugars 151-215 ?? COPD - not in acute exacerbation ?? 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 HTN HLD - continue police captain senior amlodipine, metoprolol, fenofibrate, colestipol, Crestor ?? Anxiety -Continue FLAT SCREEN WORKER Rexulti, klonopin, Pristiq, risperidone ? Diet: Clear [...] Physician, Dr. Rodriguez, Bedside Nurse and GI Department Coordinator(s). Melissa Ivan PA-C Hospitalist Service [facility] Securely message with [employer] (more info) Text page via [facility] Paging/Directory Interval History Right upper abdomen pain [...] note. Data PAST 24 HR DATA REVIEWED [id number]} Associated attestation - Marlon Rodriguez MD - [...] this encounter H&P Notes * Danisha Rossi PA-C - 10/26/2022 12:21 PM CDT [facility] History and Physical - Hospitalist Service [...] bloody emesis or diarrhea. Recently discharged from [facility] on 10/17 with thought to be [...] buprenorphine Hx Medication seeking behaviors - continue police captain senior buprenorphine, asking for pain medication upon admission - PRN oxycodone available avoid use if able given her history Type 2 DM - reduce police captain senior dose 10 units to 5 units for now, until tolerating oral intake - sliding scale insulin COPD - not in acute exacerbation GERD -Continue Protonix HTN HLD - continue police captain senior amlodipine, metoprolol, fenofibrate, colestipol, Crestor Anxiety -Continue [...] the Patient. DANISHA Rossi PA-C Hospitalist Service [facility] Securely message with [employer] (more info) Text page via [facility] Paging/Directory Chief Complaint Nausea, Vomiting, diarrhea [...] bloody emesis or diarrhea. Recently discharged from [facility] on 10/17 with thought to be [...] ANKLE ARTHROSCOPY; Surgeon: Jovany Gonzalez MD; Location: [facility];Service: ??? BACK SURGERY Lumbar and cervical [...] FIBULAR FRACTURE; Surgeon: Jovany Gonzalez MD; Location: [facility]; Service: ??? rectocele and cystocel repairs ??? REMOVE HARDWARE LOWER EXTREMITY Right 12/13/2017 Procedure: REMOVAL OF SYNDESMOSIS SCREWS, SUHAS; Surgeon: Jovany Gonzalez MD; Location: [facility]; Service: ??? REPAIR RECTOCELE ??? TONSILLECTOMY ??? ZZC NONSPECIFIC PROCEDURE 06/2001 Colonoscopy - neg -- abstracted 12/26/01 Prior to Admission Medications Prior to Admission Medications Prescriptions Last Dose Informant Patient Reported? Taking? Continuous Blood Gluc Dehydrating Press Operator (DEXCOM G6 QC LAB TECHNICIAN) ANITA No No Sig: USE DAILY Continuous Blood Gluc Sensor (DEXCOM G6 SENSOR) [facility] No No Sig: USE 1 SENSOR EVERY 10 DAYS Continuous Blood Gluc Transmit (DEXCOM G6 TRANSMITTER) [facility] No No Sig: Change every 3 months [...] (NARCAN) nasal spray Pharmacy No No Sig: Davenport 1 spray (4 mg) into one nostril alternating nostrils as needed nitroGLYcerin (NITROSTAT) 0.4 MG sublingual tablet Self No No Sig: Place 1 tablet (0.4 mg) under the tongue every 5 minutes as needed for chest pain nystatin (MYCOSTATIN) 237038 UNIT/GM external ointment No No Sig: Apply [...] 14 days vitamin D3 (CHOLECALCIFEROL) 1.25 MG (08109 UT) capsule Yes No Sig: Take 50,000 [...] their history, physical and plan for Kaila Pineda Rob Hernandez. I did not participate in [...] to home when medically stable. GARCIA More, [facility] Inpatient Care Coordination [facility] [phone] * Jessica Greenfield PA-C - 10/27/2022 10:20 AM CDTAssociated Order(s): GASTROENTEROLOGY IP CONSULT [facility] Gastroenterology Consultation Kaila Hernandez [address] [place] [phone] 61 year old female Admission Date/Time: 10/26/2022 [...] fecal transplant about 6 years ago with [facility]. Since that time, her episodes of C. [...] TWICE A DAY naloxone (NARCAN) nasal spray, Davenport 1 spray (4 mg) into one nostril alternating nostrils as needed nitroGLYcerin (NITROSTAT) 0.4 MG sublingual tablet, Place 1 tablet (0.4 mg) under the tongue every 5 minutes as needed for chest pain nystatin (MYCOSTATIN) 584718 UNIT/GM external ointment, Apply topically 2 times [...] tablet by mouth daily Continuous Blood Gluc Dehydrating Press Operator (DEXCOM G6 QC LAB TECHNICIAN) ANITA, USE DAILY Continuous Blood Gluc Sensor (DEXCOM G6 SENSOR) MISC, USE 1 SENSOR EVERY 10 DAYS Continuous Blood Gluc Transmit (DEXCOM G6 TRANSMITTER) MISC, Change every 3 months to continuously monitor [...] ANKLE ARTHROSCOPY; Surgeon: Jovany Gonzalez MD; Location: [facility] OR;Service: ??? BACK SURGERY Lumbar and cervical ??? CARDIAC CATHETERIZATION ??? COLONOSCOPY N/A 10/20/2015 Procedure: COMBINED COLONOSCOPY, SINGLE OR MULTIPLE BIOPSY/POLYPECTOMY BY BIOPSY; Surgeon: Kwaku Colón MD; [facility]: [facility] ??? COLONOSCOPY N/A 05/09/2017 Procedure: COLONOSCOPY;; [...] DUODENOSCOPY (EGD); Surgeon:Zee Sims MD; Location: GI ??? ESOPHAGOSCOPY, GASTROSCOPY, DUODENOSCOPY (EGD), COMBINED [...] FIBULAR FRACTURE; Surgeon: Jovany Gonzalez MD; Location: [facility] OR; Service: ??? rectocele and cystocel repairs ??? REMOVE HARDWARE LOWER EXTREMITY Right 12/13/2017 Procedure: REMOVAL OF SYNDESMOSIS SCREWS, SUHAS; Surgeon: Jovany Gonzalez MD; Location: [facility] OR; Service: ??? REPAIR RECTOCELE ??? [...] including chart review, patient visit, documentation, coordination. DARYL Wilkinson [facility] Office: [phone] call if needed after 5PM , not [...] including patient evaluation, reviewing documentation/test results, and work order clerk. Jeffry Fajardo MD Thank you for the opportunity to participate in the care of this patient. Please feel free to call me with any questions or concerns. Phone number . documented in this encounter ED Notes * Davina Sahu RN - 10/26/2022 12:33 PM CDT [facility] ED Nurse Handoff Report Kaila Hernandez [...] Assist. Lift room needed: No. Bariatric: No Exchange Engineer Needed: No Isolation: Yes. Infection: C-Diff (Clostridium [...] admission: NO ED Nurse Name/Phone Number: Jac Soriano RN, 12:33 PM RECEIVING UNIT ED HANDOFF [...] (COLESTID) 1 g tablet Continuous Blood Gluc Dehydrating Press Operator (DEXCOM G6 QC LAB TECHNICIAN) ANITA Continuous Blood Gluc Sensor (DEXCOM G6 [...] (NITROSTAT) 0.4 MG sublingual tablet nystatin (MYCOSTATIN) 128744 UNIT/GM external ointment omega-3 acid ethyl esters (LOVAZA) 1 g capsule ondansetron (ZOFRAN ODT) 8 MG ODT tab pantoprazole (PROTONIX) 40 MG EC tablet Potassium Gluconate 595 MG CAPS risperiDONE (RISPERDAL M-TABS) 0.5 MG ODT rosuvastatin (CRESTOR) 40 MG tablet vancomycin (VANCOCIN) 125 MG capsule vitamin D3 (CHOLECALCIFEROL) 1.25 MG (82186 UT) capsule Past Medical History: Past Medical [...] Surgeon: Jovany Gonzalez MD; Location: [facility] OR;Service: ??? BACK SURGERY Lumbar and [...] FIBULAR FRACTURE; Surgeon: Jovany Gonzalez MD; Location: [facility] OR; Service: ??? rectocele and cystocel repairs ??? REMOVE HARDWARE LOWER EXTREMITY Right 12/13/2017 Procedure: REMOVAL OF SYNDESMOSIS SCREWS, SUHAS; Surgeon: Jovany Gonzalez MD; Location: [facility] OR; Service: ??? REPAIR RECTOCELE ??? TONSILLECTOMY ??? ZZC NONSPECIFIC PROCEDURE 06/2001 Colonoscopy - neg -- abstracted 6/18/02 Family History: family history includes Colon Cancer [...] Tests: ED Course as of 10/26/22 1339 e Oct 26, 2022 1216 I spoke with Danisha Rossi for Dr Rodriguez Social Determinants of Health affecting care: None Disposition: The patient was admitted to the hospital under the care of Dr. Rodriguez. Impression & Plan [facility] Diagnoses: The Lactic acid level is elevated [...] Return to near baseline physical activity: Yes Tissue Technologist Nurse Safe discharge environment identified: Yes Barriers [...] Return to near baseline physical activity: Yes Tissue Technologist Nurse Safe discharge environment identified: Yes Barriers [...] Return to near baseline physical activity: Yes Tissue Technologist Nurse Safe discharge environment identified: No Barriers [...] Return to near baseline physical activity: Yes Tissue Technologist Nurse Safe discharge environment identified: No Barriers [...] Return to near baseline physical activity: Yes Tissue Technologist Nurse Safe discharge environment identified: Yes Barriers to discharge: Yes - Patient to have colonoscopy completed tomorrow at 1100. Entered by: Carter Regan RN 10/27/2022 Patient is A&Ox4 and VSS on RA. Patient has left PIV saline locked. Patient is independent in room otherwise SBA. Commode set up at bedside. Bowel prep completed and continues to have watery stools. They are getting lute packer or applier in color - will continue to monitor. [...] Return to near baseline physical activity: Yes Tissue Technologist Nurse Safe discharge environment identified: Yes Barriers [...] Return to near baseline physical activity: Yes Tissue Technologist Nurse Safe discharge environment identified: Yes Barriers [...] midnight and colonoscopy tomorrow. * Plan of Barney - Brittney Masterson RN - 10/27/2022 8:00 AM CDT PRIMARY DIAGNOSIS: GASTROENTERITIS OUTPATIENT/OBSERVATION GOALS TO BE MET BEFORE DISCHARGE 1. Orthostatic performed: N/A 2. Tolerating PO fluid and/or antibiotics (if applicable): Yes 3. Nausea/Vomiting/Diarrhea symptoms improved: Yes 4. Pain status: Improved-controlled with oral pain medications. 5. Return to near baseline physical activity: Yes Tissue Technologist Nurse Safe discharge environment identified: Yes Barriers to discharge: Yes Entered by: Brittney Masterson RN 10/27/2022 Please review provider order for any additional goals. Nurse to notify provider when observation goals have been met and patient is ready for discharge. AOx4. Up SBA. Pain in abd 8/10, provider aware. No stools- collect if has [...] are managing. Plan: G I consult today Tissue Technologist Nurse Safe discharge environment identified: Yes Barriers [...] to make her need known.will continue management. Tissue Technologist Nurse Safe discharge environment identified: Yes Barriers [...] Return to near baseline physical activity: Yes Tissue Technologist Nurse Safe discharge environment identified: Yes Barriers [...] Return to near baseline physical activity: Yes Tissue Technologist Nurse Safe discharge environment identified: Yes Barriers [...] SW consult): Home with Facility name: N/A personnel assistant: ([facility]) [phone] Activity level at baseline: IND, might need [...] * Pharmacy-Admission Medication History - Yee Sullivan [facility] - 10/26/2022 1:56 PM CDT Pharmacist Admission [...] not work for her. Changes made to FLAT SCREEN WORKER medication list: ??? Added: aspirin, vitamin d1000 ??? Deleted: [email or web address] daily prn, icy hot patch, vitamin d 02949 weekly ??? Changed: lidocaine patch from scheduled [...] yes Medication History Completed By: Yee Sullivan [facility] 10/26/2022 1:56 PM Prior to Admission medications Medication Sig Last Dose Taking? Auth Provider Senior Software Developer End Date acetaminophen (TYLENOL) 325 MG tablet [...] Fuentes MD Yes naloxone (NARCAN) nasal spray [place]en[place] 1 spray (4 mg) into one nostril alternating nostrils as needed Unknown at ? Yes Winsome Ghotra APRN CNP Yes nitroGLYcerin (NITROSTAT) 0.[address] 1 tablet (0.4 mg) under the tongue every 5minutes as needed for chest pain Past Month at ? Yes Len Adhikari MD Yes nystatin (MYCOSTATIN) 919220 UNIT/GM external ointment Apply topically 2 times daily as needed Unknown at ? Yes Unknown, Entered By History omega-3 acid ethyl esters (LOVAZA) 1 g capsule TAKE 2 CAPSULES BY MOUTH TWICE A DAY [facility] ondansetron (ZOFRAN ODT) 8 MG ODT [...] st Contact Info) Description 08/18/2023 3:00 PM RAILROAD WHEELS AND AXLE INSPECTOR Office Visit [facility] [address] [place] [address] Katiana Read MD [address] [place] [address] Scheduled Orders Name Type Priority Associated Diagnoses [...] Glucose by meter (10/28/2022 1:29 PM CDT) GLUCOSE BY METER POCT 138(H) 70 - 99 mg/dL 10/28/2022 1:36 PM CDT LABORATORY POC Blood, Capillary BLOOD SPECIMEN / Unknown 10/28/2022 1:29 PM CDT 10/28/2022 1:36 PM CDT Marlon Rodriguez MD [facility] POCT LABORATORY [facility] Lab [address] [facility] Lab (1st floor, no room number) [place] [address], [facility] [phone] * Surgical Pathology Exam (10/28/2022 11:48 AM CDT) Case Report Surgical Pathology Report ? Case: [id number] ? Authorizing Provider: ??Jeffry Fajardo MD Collected: ? 10/28/2022 11:48 AM ? Ordering Location: ? [facility] ?? Received: ?10/28/2022 12:15 PM ? Main OR ? Pathologist: ? Robin Sánchez MD ? Specimens: ?? A) - Small Intestine, Terminal Ileum, terminal ileum biopsies ? B) - Large Intestine, Colon, Random, random colon biopsies ? 10/29/2022 2:44 PM CDT LABORATORY Final Diagnosis A. Terminal ileum: --No [...] Entirely submitted in one cassette. (DIANA Lozada ([facility])) 10/29/2022 2:44 PM CDT LABORATORY Microscopic Description Microscopic examination was performed. 10/29/2022 2:44 PM CDT LABORATORY Performing Labs The technical component of this testing was completed at [facility] 10/29/2022 2:44 PM CDT LABORATORY Case Images 10/29/2022 2:44 PM CDT LABORATORY Tissue STRUCTURE OF DISTAL PORTION OF ILEUM / Unknown 10/28/2022 11:48 AM CDT 10/28/2022 12:15 PM CDT Tissue specimen (specimen) COLON STRUCTURE / Unknown 10/28/2022 11:49 AM CDT 10/28/2022 12:15 PM CDT Comment:Concerns: Possible C -diff. versus Microscopic colitis Jeffry [facility] LABORATORY [facility] Lab [address] [facility] (1st floor, no room number) [place] [address], [facility] [phone] * COLONOSCOPY (10/28/2022 11:10 AM CDT) COLONOSCOPY [facility] Patient Name: Kaila Hernandez Procedure Date: 10/28/2022 11:10 AM ? [...] by the physician, ?the nurse and the dopster in the procedure ?room. Mental Status Examination: [...] and ?oxygen saturations were monitored continuously. The ?QR Artist Pediatric Colonoscope Model # [id number]-JH176A, ?Endora # 257, SN # [id number] was introduced through ?the anus and advanced [...] Procedure Code(s): ? --- Professional --- ? 05324, Colonoscopy, flexible; with biopsy, single or multiple CPT copyright 2020 [employer]. All rights reserved. The codes documented in this report are preliminary and upon miller helper review may be revised to meet current compliance requirements. Electronically signed by Jeffry Fajardo MD JEFFRY FAJARDO MD 10/28/2022 12:11:08 PM I was physically present for the entire viewing portion of the exam. JEFFRY FAJARDO MD Number of Addenda: 0 Note Initiated On: 10/28/2022 11:10 AM MRN: ?[id number] Procedure Date: ? 10/28/2022 11:10:36 AM Scope [...] AM CDT Marlon Rodriguez MD LAB - [facility] POCT LABORATORY [facility] [address] [facility] Lab (1st floor, no room number) [place] [address], [facility] [phone] * (ABNORMAL) Glucose by meter (10/28/2022 8:00 AM CDT) GLUCOSE BY METER POCT 135(H) 70 - 99 mg/dL 10/28/2022 8:07 AM CDT [facility] LABORATORY POC Blood, Capillary BLOOD SPECIMEN / Unknown 10/28/2022 8:00 AM CDT 10/28/2022 8:07 AM CDT Marlon Rodriguez MD LAB - [facility] POCT Performing Organization Address City/[facility]/ZIP Co de Phone Number LABORATORY [facility] [address] Lab (1st floor, no room number) [place] [address], [place] [phone] * (ABNORMAL) Glucose by meter (10/28/2022 1:39 AM CDT) GLUCOSE BY METER POCT 137(H) 70 - 99 mg/dL 10/28/2022 1:45 AM CDT LABORATORY POC Blood, Capillary BLOOD SPECIMEN / Unknown 10/28/2022 1:39 AM CDT 10/28/2022 1:45 AM CDT Marlon Rodriguez MD LAB - BEAKER POCT Performing Organization Address [facility]/ZIP Co de Phone Number LABORATORY [facility] [address] Lab (1st floor, no room number) [place] [address], [place] [phone] * (ABNORMAL) Glucose by meter (10/27/2022 9:07 PM CDT) GLUCOSE BY METER POCT 126(H) 70 - 99 mg/dL 10/27/2022 9:14 PM CDT LABORATORY POC Blood, Capillary BLOOD SPECIMEN / Unknown 10/27/2022 9:07 PM CDT 10/27/2022 9:14 PM CDT Marlon Rodriguez MD LAB - BEAKER POCT Performing Organization Address City/[facility]/ZIP Co de Phone Number LABORATORY [facility] [address] Lab (1st floor, no room number) [place] [address], [place] [phone] * (ABNORMAL) C. difficile Antigen and Toxins [...] MICRO GEN ERAL ORDERABLES [facility] LABORATORY [facility] Inf. Diseases Diag. Lab [address] [facility] [place] [address], [facility] [phone] * (ABNORMAL) C. difficile Toxin B PCR with reflex to C. difficile Antigen and Toxins A/B EIA (10/27/2022 7:20 PM CDT) Pathologist [facility] C Difficile Toxin B by PCR Positive( [...] LABORATORY - 10/28/2022 2:14 AM CDT The Cepheid Xpert C. difficile Assay, performed on the Soneter GeneXpert?? Instrument Systems, is a qualitative in vitro [...] MICRO GEN ERAL ORDERABLES [facility] Inf. Diseases Diag. Lab [address] [facility], [address] [place] [address], [facility] [phone] * Enteric Bacteria and Virus Panel by [...] performed by multiplexed, qualitative PCR using the Markr Enteric Pathogens Nucleic Acid Test. Results should [...] for Shiga toxins 1 and 2. Danisha Rossi PA-C LAB - MICRO GENERAL ORDERABLES [facility] Inf. Diseases Diag. Lab [address] [facility], [address] [place] [address], [place] [phone] * (ABNORMAL) Glucose by meter (10/27/2022 4:57 PM CDT) GLUCOSE BY METER POCT 215(H) 70 - 99 mg/dL 10/27/2022 5:04 PM CDT LABORATORY POC Blood, Capillary BLOOD SPECIMEN / Unknown 10/27/2022 4:57 PM CDT 10/27/2022 5:04 PM CDT Marlon Rodriguez MD LAB - BEAKER POCT LABORATORY [facility] Acute Care Lab [address] [facility] Lab (1st floor, no room number) [place] [address], [place] [phone] * (ABNORMAL) Glucose by meter (10/27/2022 12:48 PM CDT) GLUCOSE BY METER POCT 164(H) 70 - 99 mg/dL 10/27/2022 12:54 PM CDT LABORATORY POC Blood, Capillary BLOOD SPECIMEN / Unknown 10/27/2022 12:48 PM CDT 10/27/2022 12:54 PM CDT Marlon Rodriguez MD LAB - BEAKER POCT LABORATORY POC [facility] Acute Care Lab [address] Lab (1st floor, no room number) [place] [address], [place] [phone] * Lipase (10/27/2022 6:34 AM CDT) Lipase 17 13 - 60 U/L 10/27/2022 11:18 AM CDT LABORATORY Blood STRUCTURE OF RIGHT UPPER LIMB / Unknown Venipuncture / Unknown 10/27/2022 6:34 AM CDT 10/27/2022 7:33 AM CDT Melissa Ivan PA-C LAB - BLOOD ORD ERABLES Performing Organization Address City/[facility]/ZIP Co de Phone Number LABORATORY [facility] Acute Care Lab [address] Lab (1st floor, no room number) [place] [address], [place] [phone] * (ABNORMAL) Basic metabolic panel (10/27/2022 6:34 AM CDT) Sodium 141 136 - 145 mmol/L 10/27/2022 8:20 AM CDT LABORATORY Potassium 3.8 3.4 - 5.3 mmol/L 10/27/2022 8:20 AM CDT [facility] LABORATORY Chloride 106 98 - 107 mmol/L 10/27/2022 8:20 AM CDT LABORATORY Carbon Dioxide (CO2) 23 22 - 29 mmol/L 10/27/2022 8:20 AM CDT [facility] LABORATORY Anion Gap 12 7 - 15 mmol/L 10/27/2022 8:20 AM CDT [facility] LABORATORY Urea Nitrogen 4.5(L) 8.0 - 23.0 mg/dL 10/27/2022 8:20 AM CDT [facility] LABORATORY Creatinine 0.86 0.51 - 0.95 mg/dL 10/27/2022 8:20 AM CDT LABORATORY Calcium 8.4(L) 8.8 - 10.2 mg/dL 10/27/2022 8:20 AM CDT LABORATORY Glucose 155(H) 70 - 99 mg/dL 10/27/2022 8:20 AM CDT [facility] LABORATORY GFR Estimate 76 >60 mL/min/1.7 3m2 10/27/2022 8:20 AM CDT [facility] LABORATORY Comment:eGFR calculated usin 2020 CKD-EPI equation. Blood STRUCTURE OF RIGHT UPPER LIMB / Unknown Venipuncture / Unknown 10/27/2022 6:34 AM CDT 10/27/2022 7:33 AM CDT Danisha Rossi PA-C LAB - BLOOD ORDERABL ES LABORATORY [facility] Care Lab [address] Lab (1st floor, no room number) [place] [id number], [place] [phone] * (ABNORMAL) Glucose by meter (10/27/2022 6:06 AM CDT) GLUCOSE BY METER POCT 151(H) 70 - 99 mg/dL 10/27/2022 6:13 AM CDT LABORATORY POC Blood, Capillary BLOOD SPECIMEN / Unknown 10/27/2022 6:06 AM CDT 10/27/2022 6:13 AM CDT Marlon Rodriguez MD LAB - BEAKER POCT LABORATORY [facility] Acute Care Lab [address] Lab (1st floor, no room number) [place] [address], [place] [phone] * (ABNORMAL) Glucose by meter (10/27/2022 1:53 AM CDT) GLUCOSE BY METER POCT 170(H) 70 - 99 mg/dL 10/27/2022 2:01 AM CDT LABORATORY POC Blood, Capillary BLOOD SPECIMEN / Unknown 10/27/2022 1:53 AM CDT 10/27/2022 2:01 AM CDT Marlon Rodriguez MD LAB - BEAKER POCT LABORATORY [facility] Lab [address] Lab (1st floor, no room number) [place] [phone], [place] [phone] * (ABNORMAL) Glucose by meter (10/26/2022 10:46 PM CDT) GLUCOSE BY METER POCT 215(H) 70 - 99 mg/dL 10/26/2022 10:52 PM CDT LABORATORY POC Blood, Capillary BLOOD SPECIMEN / Unknown 10/26/2022 10:46 PM CDT 10/26/2022 10:52 PM CDT Marlon Rodriguez MD LAB - BEAKER POCT Performing Organization Address City/[facility]/ZIP Co de Phone Number LABORATORY [facility] Lab [address] Lab (1st floor, no room number) [place] [phone], [place] [phone] * (ABNORMAL) Glucose by meter (10/26/2022 4:50 PM CDT) GLUCOSE BY METER POCT 209(H) 70 - 99 mg/dL 10/26/2022 4:57 PM CDT LABORATORY POC Blood, Capillary BLOOD SPECIMEN / Unknown 10/26/2022 4:50 PM CDT 10/26/2022 4:57 PM CDT Marlon Rodriguez MD LAB - BEAKER POCT LABORATORY [facility] Lab [address] Lab (1st floor, no room number) [place] [address], [facility] [phone] * (ABNORMAL) Phosphorus (10/26/2022 2:52 PM CDT) Phosphorus 1.8(L) 2.5 - 4.5 mg/dL 10/26/2022 3:19 PM CDT [facility] LABORATORY Blood STRUCTURE OF RIGHT UPPER LIMB / Unknown Venipuncture / Unknown 10/26/2022 2:52 PM CDT 10/26/2022 2:58 PM CDT Danisha Rossi PA-C LAB - BLOOD ORDERABL ES [facility] Acute Care Lab [address] Lab (1st floor, no room number) [place] [address], [facility] [phone] * Magnesium (10/26/2022 2:52 PM CDT) Magnesium 1.7 1.7 - 2.3 mg/dL 10/26/2022 3:19 PM CDT [facility] LABORATORY Blood STRUCTURE OF RIGHT UPPER LIMB / Unknown Venipuncture / Unknown 10/26/2022 2:52 PM CDT 10/26/2022 2:58 PM CDT Danisha Rossi PA-C LAB - BLOOD ORDERABL ES Performing Organization Address City/[facility]/ZIP Co de Phone Number [facility] Lab [address] [facility] Lab (1st floor, no room number) [place] [address], [facility] [phone] * Lactic acid whole blood (10/26/2022 2:52 PM CDT) Lactic Acid 1.2 0.7 - 2.0 mmol/L 10/26/2022 3:03 PM CDT [facility] LABORATORY Blood STRUCTURE OF RIGHT UPPER LIMB / Unknown Venipuncture / Unknown 10/26/2022 2:52 PM CDT 10/26/2022 2:57 PM CDT Dyan Samaniego MD LAB - BLOOD ORDERA BLES [facility] Acute Care Lab [address] Lab (1st floor, no room number) [place] [address], [place] [phone] * (ABNORMAL) Lactic acid whole blood (10/26/2022 11:50 AM CDT) Lactic Acid 2.8(H) 0.7 - 2.0 mmol/L 10/26/2022 11:56 AM CDT RH LABORATORY Blood STRUCTURE OF LEFT UPPER LIMB / Unknown Venipuncture / Unknown 10/26/2022 11:50 AM CDT 10/26/2022 11:53 AM CDT Dyan Samaniego MD LAB - BLOOD ORDERA BLES [facility] [address] Lab (1st floor, no room number) [place] [address], [facility] [phone] * Extra Red Top Tube (10/26/2022 10:22 AM CDT) Hold Specimen JIC 10/26/2022 11:32 AM CDT LABORATORY Blood BLOOD SPECIMEN / Unknown Venipuncture / Unknown 10/26/2022 10:22 AM CDT 10/26/2022 10:28 AM CDT Dyan Samaniego MD LAB - BLOOD ORDERA BLES [facility] [address] Lab (1st floor, no room number) [place] [address], [facility] [phone] * (ABNORMAL) CBC with platelets and differential [...] - 5.3 10e3/uL 10/26/2022 10:35 AM CDT RH LABORATORY Absolute Monocytes 0.5 0.0 - 1.3 10e3/uL 10/26/2022 10:35 AM CDT RH LABORATORY Absolute Eosinophils 0.0 0.0 - 0.7 10e3/uL 10/26/2022 10:35 AM CDT RH LABORATORY Absolute Basophils 0.1 0.0 - 0.2 10e3/uL 10/26/2022 10:35 AM CDT RH LABORATORY Absolute Immature Granulocytes 0.0 <=0.4 10e3/uL 10/26/2022 10:35 AM CDT RH LABORATORY Absolute NRBCs 0.0 10e3/uL 10/26/2022 10:35 AM CDT RH LABORATORY Blood BLOOD SPECIMEN / Unknown Venipuncture / Unknown 10/26/2022 10:22 AM CDT 10/26/2022 10:28 AM CDT Dyan Samaniego MD LAB - BLOOD ORDERA BLES RH LABORATORY [facility] Acute Care Lab [address] Lab (1st floor, no room number) [place] [address], [facility] [phone] * (ABNORMAL) Basic metabolic panel (BMP) (10/26/2022 [...] Samaniego MD LAB - BLOOD ORDERA BLES [facility] Acute Care Lab [address] [facility] Lab (1st floor, no room number) [place] [address], [facility] [phone] documented in this encounter Visit Diagnoses Diagnosis Nausea and vomiting, unspecified vomiting type- Primary Nausea and vomiting, unspecified vomiting type Dehydration Pancolitis (H) Story ulcerative (chronic) colitis Nausea Nausea alone Pancolitis (H) Story ulcerative (chronic) colitis documented in this encounter Admitting Diagnoses Diagnosis [...] if HYDROmorphone (DILAUDID) also ordered., Starting on [facility] 10/28/22 at 1205, Administer fentaNYL (SUBLIMAZE) for [...] 5 MIN PRN, severe pain, Starting on Tue10/28/22 at 1205, Use FentaNYL (SUBLIMAZE) first if [...] 1211 ($New Bag - Provider: Jac Soriano, ZITA) acetaminophen (TYLENOL) tablet 975 mg (COMPLETED) 975 mg, Oral, ONCE, On Tue10/26/22 at 1135, For 1 dose, Maximum acetaminophen dose from all sources = 75 mg/kg/day not to exceed 4 grams/day. 1154 ($Given - Provider: Jac Soriano, ZITA) amLODIPine (NORVASC) tablet 10 mg 10 mg, Oral, DAILY, First dose on Tue10/26/22 at 1530 1609 ($Given - Provider: Carter Regan, ZITA) 0914 ($Given - Provider: Brittney Masterson, ZITA) 0838 ($Given - Provider: Cortney Gonzalez, ZITA)1020 [...] a procedure. 1532 ($Given - Provider: Brittney Masterson, ZITA) brexpiprazole (REXULTI) tablet 2 mg 2 mg, Oral, DAILY, First dose on Tue10/26/22 at 1530 1609 ($Given - Provider: Carter Regan RN) 0914 ($Given - Provider: Brittney Masterson, ZITA) 0837 ($Given - Provider: Cortney Gonzalez, RN)1020 [...] RN)1951 ($Given - Provider: Carter Regan RN) 0840 ($Given - Provider: Cortney Gonzalez, ZITA)1020 (Auto Hold - Provider: Orders Generic Provider - Reason: Transfer to a procedural area)1319 (Unhold - Provider: Orders Generic Provider)1417 ($Given - Provider: Brittney Masterson, ZITA) clonazePAM (klonoPIN) tablet 1 mg 1 mg, Oral, 2 TIMES DAILY, First dose on Tue10/26/22 at 1800 1729 ($Given - Provider: Carter Regan RN) 0913 ($Given - Provider: Brittney Masterson RN)1952 ($Given [...] 0913 ($Given - Provider: Brittney Masterson, ZITA) 0837 ($Given - Provider: Cortney Gonzalez, RN)1020 (Auto Hold - Provider: Orders Generic Provider - Reason: Transfer to a procedural area)1319 (Unhold - Provider: Orders Generic Provider) fenofibrate (LOFIBRA) tablet 54 mg 54 mg (rounded from 48 mg), Oral, DAILY, First dose on Tue10/26/22 at 1530 1607 ($Given - Provider: Carter Regan RN) 0913 ($Given - Provider: Brittney Masterson, ZITA) 0836 ($Given - Provider: Cortney Gonzalez, RN)1020 (Auto Hold - Provider: Orders Generic Provider - Reason: Transfer to a procedural area)1319 (Unhold - Provider: Orders Generic Provider) hydrOXYzine (ATARAX) tablet 25 mg 25 mg, Oral, 4 TIMES DAILY, First dose on Tue10/26/22 at 1600 1609 ($Given - Provider: Carter Regan RN)2106 ($Given - Provider: Carter Regan RN) 0913 ($Given - Provider: Brittney Masterson, ZITA)1122 [...] Regan RN) 0920 ($Given - Provider: Brittney Masterson RN)1251 (Not Given - Provider: Brittney Masterson RN - Reason: Patient/family refused)1735 ($Given - Provider: Carter Regan RN) 0830 (Not Given - Provider: Cortney Gonzalez RN - Reason: Order parameters not met)1020 [...] 0913 ($Given - Provider: Brittney Masterson, ZITA) 0836 ($Given - Provider: Cortney Gonzalez, RN)1020 [...] Carter Regan RN)2105 ($Given - Provider: Carter Regan RN) 0913 ($Given - Provider: Brittney Masterson, ZITA)1122 ($Given - Provider: Brittney Masterson, ZITA)1532 ($Given - Provider: Brittney Masterson, ZITA)1952 ($Given [...] Regan RN) 0837 ($Given - Provider: Cortney Gonzalez RN)1020 (Auto Hold - Provider: Orders Generic Provider - Reason: Transfer to a procedural area)1319 (Unhold - Provider: Orders Generic Provider) pantoprazole (PROTONIX) EC tablet 40 mg 40 mg, Oral, DAILY, First dose on Tue10/26/22 at 1530, DO NOT CRUSH. 1609 ($Given - Provider: Carter Regan RN) 0914 ($Given - Provider: Brittney Masterson RN) 0836 ($Given - Provider: Cortney Gonzalez, ZITA)1020 (Auto [...] at 1530 1609 ($Given - Provider: Carter Regan, ZITA) 0913 ($Given - Provider: Brittney Masterson RN) 0840 ($Given - Provider: Cortney Gonzalez, RN)1020 (Auto Hold - Provider: Orders Generic Provider - Reason: Transfer to a procedural area)1319 (Unhold - Provider: Orders Generic Provider) rosuvastatin (CRESTOR) tablet 40 mg 40 mg, Oral, DAILY, First dose on Tue10/26/22 at 1530 1608 ($Given - Provider: Carter Regan, ZITA) 0914 ($Given - Provider: Brittney Masterson, ZITA) 0836 ($Given - Provider: Cortney Gonzalez, ZITA)1020 (Auto [...] IV Infusing)1532 ($Given - Provider: Brittney Masterson, RN)2340 ($Given - Provider: Evi Gonzalez RN) 0840 ($Given - Provider: Cortney Gonzalez, [...] 1100 1843 ($New Bag - Provider: Carter Regan, RN - Comment: New Line) 0451 ($New Bag - Provider: Agustin Wong RN)1251 (Stopped - Provider: Brittney Masterson RN) lactated ringers infusion at 75 mL/hr, Intravenous, CONTINUOUS, Starting on Zenaida 10/28/22 at 0600, Until Zenaida 10/28/22 at 1727 0556 ($New Bag - Provider: Evi Gonzalez RN)1200 (Rate/Dose Change - Provider: Lenka Fan, DECORATOR LIGHTING FIXTURES HIGH DENSITY PRESS OPERATOR) PRN Medication Order 10/26/2022 10/27/2022 10/28/2022 acetaminophen [...] 1732 (See Alternative - Provider: Carter Regan, ZITA) 1020 (Auto Hold - Provider: Orders Generic [...] grams/day. 1732 (Not Given - Provider: Carter Regan RN - Reason: Patient/family refused) 1020 (Auto Hold - Provider: Orders Generic Provider - Reason: Transfer to a procedural area)1319 (Unhold - Provider: Orders Generic Provider) albuterol (PROVENTIL HFA/VENTOLIN HFA) inhaler 2 puff, Inhalation, EVERY 4 HOURS PRN, shortness of breath, wheezing, Starting on e 10/26/22 at 1458, Check the dose counter on the inhaler to ensure there are doses remaining before administering. 1020 (Auto Hold - Provider: Orders Generic Provider - Reason: Transfer to a procedural area)1319 (Unhold - Provider: Orders Generic Provider) dextrose 50 % injection 25-50 mL(Linked Group 3) 25-50 mL, Intravenous, EVERY 15 MIN PRN, low blood sugar, Administer over 1-5 Minutes, Starting on e 10/26/22 at 1511, Use if have IV access, [...] (DILAUDID)., PACU 1219 ($Given - Provider: Asia Dixon, RN)1226 ($Given - Provider: Asia Dixon, RN) glucagon injection 1 mg(Linked Group 3) [...] effects., PACU 1239 ($Given - Provider: Asia Dixon, RN)1250 ($Given - Provider: Asia Dixon RN) lidocaine (LMX4) cream Topical, EVERY 1 HOUR PRN, pain, with VAD insertion or accessing implanted port., Starting on Tue10/26/22 at 1504, Do NOT give if patient [...] mild pain with VAD insertion., Starting on Tue10/26/22 at 1504, Do NOT give if patient [...] RN) 1251 (See Alternative - Provider: Brittney Masterson, ZITA)2113 (See Alternative - Provider: Carter Regan RN) [...] Regan RN) 0301 ($Given - Provider: Evi Gonzalez RN)1020 (Auto [...] Irritant., PACU 1221 ($Given - Provider: Asia Dixon, ZITA) oxyCODONE (ROXICODONE) tablet 5-10 mg (CANCELED) 5-10 mg, Oral, EVERY 4 HOURS PRN, moderate pain, Starting on Tue10/27/22 at 1054, Start with lowest available dose. Notify provider if vomiting and needs alternate route for pain med. 1122 ($Given - Provider: Brittney Masterson RN)1636 ($Given - Provider: Carter Regan RN)2120 ($Given - Provider: Cartre Regan RN) 0140 ($Given - Provider: Evi Gonzalez RN)0556 ($Given - Provider: Evi Gonzalez RN)1020 (Auto Hold - Provider: Orders Generic Provider - Reason: Transfer to a procedural area)1215 (Unhold - Provider: Ann Fajardo [facility]) simethicone (MYLICON) chewable tablet 80 mg 80 [...] documented as of this encounter Care Teams Dietary Aid Relationship Specialty [place] [address] [place] [address] PCP - General Family Medicine 05/18/22 Jovany Gonzalez MD [facility] [address] [facility] [address] [place], [place] [phone] Orthopedics 02/15/17 Staci Woodward NP [place] [address] [place], [place] [phone] Nurse Practitioner Nurse Practitioner Psych/Mental Health 05/10/17 Reanna Smith, [facility] [address] [place] [address] Tank Setter Helper Dietitian, Registered 07/25/19 Roshni Nascimento, RN Personal Advocate & Liaison (PAL) Family Medicine 08/18/20 Kiet Swain MD [address] [place], [place] [id number] [place] [address] Referring Physician Psychiatry 09/19/20 Winsome Pike APRN [employer] [address] [place] [address] [id number] Nurse Practitioner Psychiatry 09/19/20 Tori Hines [facility] [address] [place] [address] [phone] Clearing Inspector Clearing Inspector - Clinical 09/19/20 Miranda Queen [facility] [id number] [place] [address] Pharmacist Pharmacist 11/12/20 Marisel Armando MD [address] [place] [address] [id number] Gastroenterology 02/05/21 Marisel Armando MD [address] [place] [address] [id number] Assigned Gastroenterology Provider 03/08/21 12/24/22 Wesley Barrett MD [address] [place] [address] [address] [place], [place] [phone] Assigned Neuroscience Provider 05/10/21 [place] [address] [place] [address] Assigned PCP 05/15/22 Katiana Read MD [address] [place] [address] Assigned Endocrinology Provider 06/19/22 [place] [address] [place] [id number] Assigned Behavioral Health Provider 07/03/22 12/31/22 Deena Garza APRN [employer] [address] [place] [address] Assigned Pain Medication Provider 07/19/22 10/29/22 [place] [address] [place] [id number] Nurse Practitioner Nurse Practitioner 10/18/22 Elham Stack, [facility] [address] [place] [address] Pharmacist Pharmacist 10/19/22 Michelle Guzman, DPM, Podiatry/Foot and Ankle Surgery [address] [place] [address] Assigned Musculoskeletal Provider 10/16/22 04/08/23 documented as of this encounter
--- OUTSIDE RECORDS SUMMARY | 2023-08-03 10:04 | XMS_ITS | Encounter Summary ---
Author Name Unknown Organization [facility] Address [address] [place] [address]. [place] [address] Care Team Providers Care Accountant Auditor Name Role Phone Jovany Gonzalez MD Unavailable CrissyStaci jeong NP Unavailable [phone] Unavailable [phone] Roshni Nascimento RN Unavailable Unavailable Kiet Swain MD Unavailable [phone] Winsome Pike APRN NAILER HAND Unavailable [phone] Tori HinesSW Unavailable Miranda Queen [facility] Unavailable Unavailable Marisel Armando MD Unavailable Marisel Armando MD Unavailable Wesley Barrett MD Unavailable [phone] Dyan Fuentes MD Primary Care Provider [phone] Dyan Fuentes MD Unavailable [phone] Katiana Read MD Unavailable [phone] Meme Singleton PhD Unavailable [phone] Deena Garza CORSETS SALESPERSON NAILER HAND Unavailable [phone] Mary Del Cid ACQUISITIONS EDITOR Unavailable Elham Stack [facility] Unavailable [phone] Michelle Guzman DPM, Podiatry /Foot and Ankle [...] W DOPPLER W/[place] [address] [place] [address] C[address] S[address] [facility] [address] [employer] [address] [place] [phone] Referral ID Status Reason Start Date Expiration Date Visits Re quested Visits Authorized [id number] Closed 10/25/2022 10/25/2023 1 1 Reason for Visit * Reason Comments Hospital F/U 10/14/22-10/17/22 Encounter Details Date Type Department Care Team (Latest Contact Info) Description 10/25/2022 2:30 PM CDT Office Visit [facility] [id number] [place] [phone] [place] [address] [place] [address] Hospital discharge follow-up (Primary Dx); Pancolitis (H); C. difficile colitis; SIRS (systemic inflammatory response syndrome) (H); Type 2 diabetes mellitus without complication, without long-term current use of insulin (H); Moderate episode of recurrent major depressive disorder (H); PTSD (post-traumatic stress disorder); Morbid obesity (H); Abnormal electrocardiogram Social History Tobacco Use Types [...] week 10/16/2021 How often do you attend [facility] or sabianist services? 1 to 4 times per year 10/16/2021 Do you belong to any clubs o r organizations such as adventism groups, unions, fraternal or athletic groups, or [...] Answer Date Recorded PHQ-2 Score 2 10/25/2022 [facility] - Occupational [...] place to sleep or slept in a nursing home (including now)? No 10/16/2021 Education Answer [...] suspected to have Coronavirus/COVID-19? No / Unsure 10/25/2022 2:03 PM CDT documented as of this encounter Last Filed Vital Signs Vital Sign Reading Time Taken Comments Blood Pressure 136/68 10/25/2022 2:24 PM CDT Pulse 102 10/25/2022 2:24 PM CDT Temperature 36.9 ??C (98.4 ??F) 10/25/2022 2:24 PM CD T Respiratory Rate 26 10/25/2022 2:24 PM CDT Oxygen Saturation 98% 10/25/2022 2:24 PM CDT Inhaled Oxygen Concentration - - Weight 104.8 kg (231 lb) 10/25/2022 2:24 PM CDT Height 172.7 cm (5' 8) 10/25/2022 2:24 PM CDT Body Mass Index 35.12 10/25/2022 2:24 PM CDT documented in this encounter Progress Notes * Pily, Roshni Brito RN - 10/25/2022 2:30 PM CDT Pre-Visit Planning Next 5 appointments (look out 90 days) Oct 25, 2022 2:30 PM (Arrive by 2:10 PM) Provider Visit with Dyan Fuentes MD [facility] ([facility] ) [address] [facility] [address] Appointment Notes for this encounter: f/u per provider; blood testing; LV; kek Questionnaires Reviewed/Assigned No additional questionnaires are needed Patient preferred phone number: [phone] Contacted patient via phone. Are there any additional questions or concerns you'd like to review with your provider during your visit? Yes: concerned about most recent EKG Visit is not preventive. Meds Home Meds reviewed and updated Entered patient-preferred pharmacy. Current Outpatient Medications Medication ??? acetaminophen (TYLENOL) 325 MG tablet ??? albuterol (PROAIR HFA/PROVENTIL HFA/VENTOLIN HFA) 108 (90 Base) MCG/ACT inhaler ??? amLODIPine (NORVASC) 10 MG tablet ??? brexpiprazole (REXULTI) 2 MG tablet ??? buprenorphine HCl-naloxone HCl (SUBOXONE) 2-0.5 MG per film ??? calcium carbonate (OS-ALISA) 1500 (600 Ca) MG tablet ??? chlorhexidine (PERIDEX) 0.12 % solution ??? clonazePAM (KLONOPIN) 1 MG tablet ??? colestipol (COLESTID) 1 g tablet ??? Continuous Blood Gluc Wash Test Checker (DEXCOM G6 ROTARY SHEAR CUTTER) ANITA ??? Continuous Blood Gluc Sensor (DEXCOM G6 SENSOR) MISC ??? Continuous Blood Gluc Transmit (DEXCOM G6 TRANSMITTER) MISC ??? cyanocobalamin (CYANOCOBALAMIN) 1000 MCG/ML injection ??? desvenlafaxine (PRISTIQ) 100 MG 24 hr tablet ??? desvenlafaxine (PRISTIQ) 50 MG 24 hr tablet ??? EPINEPHrine (ANY BX GENERIC EQUIV) 0.3 MG/0.3ML injection 2-pack ??? fenofibrate (TRICOR) 48 MG tablet ??? ferrous sulfate (FEROSUL) 325 (65 Fe) MG tablet ??? hydrOXYzine (ATARAX) 25 MG tablet ??? insulin aspart (NOVOLOG FLEXPEN) 100 UNIT/ML pen ??? insulin glargine (BASAGLAR KWIKPEN) 100 UNIT/ML pen ??? insulin pen needle (31G X 5 MM) 31G X 5 MM miscellaneous ??? lactobacillus rhamnosus, GG, (CULTURELL) capsule ??? levothyroxine (SYNTHROID/LEVOTHROID) 175 MCG tablet ??? Lidocaine (LIDOCARE) 4 % Patch ??? menthol (ICY HOT) 5 % PTCH ??? methocarbamol (ROBAXIN) 500 MG tablet ??? metoprolol tartrate (LOPRESSOR) 25 MG tablet ??? naloxone (NARCAN) nasal spray ??? nitroGLYcerin (NITROSTAT) 0.4 MG sublingual tablet ??? nystatin (MYCOSTATIN) 946825 UNIT/GM external ointment ??? omega-3 acid ethyl esters (LOVAZA) 1 g capsule ??? ondansetron (ZOFRAN ODT) 8 MG ODT tab ??? pantoprazole (PROTONIX) 40 MG EC tablet ??? Potassium Gluconate 595 MG CAPS ??? risperiDONE (RISPERDAL M-TABS) 0.5 MG ODT ??? rosuvastatin (CRESTOR) 40 MG tablet ??? vancomycin (VANCOCIN) 125 MG capsule ??? vitamin D3 (CHOLECALCIFEROL) 1.25 MG (66486 UT) capsule No current facility-administered medications for this visit. MyChart Patient is active on MyChart. Call Summary Advised patient to call back at [phone] if needed. Roshni Nascimento RN * Dyan Fuentes MD - 10/25/2022 2:30 PM CDT Assessment & Plan Hospital discharge follow-up - unfortunately, she is worsening, has SIRS. Advised she return to ER for IVF and further direction on treatment. Pancolitis (H) C. difficile colitis SIRS (systemic inflammatory response syndrome) (H) Type 2 diabetes mellitus without complication, without long-term current use of insulin (H) Moderate episode of recurrent major depressive disorder (H) - risperiDONE (RISPERDAL M-TABS) 0.5 MG ODT; Take 2 tablets (1 mg) by mouth daily PTSD (post-traumatic stress disorder) - risperiDONE (RISPERDAL M-TABS) 0.5 MG ODT; Take 2 tablets (1 mg) by mouth daily Morbid obesity (H) Abnormal electrocardiogram - Echocardiogram Complete; Future MED REC REQUIRED Post Medication Reconciliation Status: Discharge medications reconciled, continue medications without change Dyan Fuentes MD [facility] K[facility] Bright is a 61 year old, presenting for the following health issues: Hospital F/U (10/14/22-10/17/22) [facility] Hospital Follow-up Visit: Hospital/Longterm/IP Rehab Facility: [facility] Date of Admission: 10/14/22 Date of Discharge: 10/17/22 Reason(s) for Admission: Nausea and Vomiting. C-diff Better only 10%, but the past 2-3 days have been bad. Unable to keep anything down. Feels dehydrated. Was your hospitalization related to COVID-19? No Summary of hospitalization: Discharge summary unavailable Diagnostic Tests/Treatments reviewed. Follow up needed: GI 2-3 months Other Healthcare Providers Involved in Patient???s Care: Specialist appointment - not scheduled with GI yet Update since discharge: worsened. Plan of care communicated with patient and family Has been home for the past week. Taking oral vancomycin for C. difficile pancolitis. Notes she feltbetter for two days, but now having recurrent nausea, vomiting, loose stools. Not able to intake fluids. Feeling lightheaded. History of recurrent c diff, has had fecal transplant - 5 years ago. Has been doing well up until this month. States she had a plan with her GI, PCP at that time to use vancomycin solution, which sheseemed to tolerate better and it was more effective. Notes the team she saw in hospital felt the capsules would be sufficient. Review of Systems Constitutional, HEENT, cardiovascular, pulmonary, gi and gu systems are negative, except as otherwise noted. Objective BP 136/68 Pulse 102 Temp 98.4 ??F (36.9 ??C) (Oral) Resp 26 Ht 1.727 m (5' 8) Wt 104.8 kg (231 lb) LMP (LMP Unknown) SpO2 98% BMI 35.12 kg/m?? Body mass index is 35.12 kg/m??. Physical Exam GENERAL: healthy, alert and no distress PSYCH: mentation appears normal, affect normal/bright documented in this encounter Plan of Treatment Upcoming Encounters Date Type Department Care Team (Late st Contact Info) Description 08/18/2023 3:00 PM COMPUTING MACHINE OPERATOR Office Visit [facility] [address] [facility] [address] [place] [address] Katiana Read MD [address] [place], [place] [id number] documented as of this encounter Results * ECHO COMPLETE WITH CONTRAST (12/17/2022 3:51 PM CDT) LVEF 60-65% CARDIOLOGY RESULTS Anatomical Region Laterality Modality Echocardiography 12/17/2022 3:18 PM CDT Narrative 12/17/2022 4:47 PM CDT [id number]^TORRES^DYAN^ULISES [facility] Echocardiography Laboratory [address] [place] [address] Name: KADEN GRIFFIN : 1960 Study Date: 12/17/2022 03:18 PM Age: 62 yrs Gender: Female Patient Location: [facility] Reason For Study: Abnormal electrocardiogram Ordering Physician: DYAN FUENTES Referring Physician: DYAN FUENTES Performed By: Nguyen Castro BSA: 2.2 m2 Height: 68 in Weight: 228 lb HR: 90 Procedure Complete Echo Adult. Optison ([facility] #[id number]) given intravenously. Interpretation Summary There is mild [...] Procedure Note Nilo Light MD - 12/17/2022 [id number]^TORRES^DYAN^ULISES [facility] Echocardiography Laboratory [address] [place] [id number] Name: KADEN GRIFFIN : 1960 Study Date: 12/17/2022 03:18 PM Age: 62 yrs Gender: Female Patient Location: [facility] Reason For Study: Abnormal electrocardiogram Ordering Physician: DYAN FUENTES Referring Physician: DYAN FUENTES Performed By: Nguyen Castro BSA: 2.2 m2 Height: 68 in Weight: 228 lb HR: 90 Procedure Complete Echo Adult. [place] ([facility] #[id number]) given intravenously. Interpretation Summary There is mild [...] Hospital discharge follow-up- Primary Other follow-up examination Pancolitis (H) Tillman ulcerative (chronic) colitis C. difficile colitis Intestinal infection due to clostridium difficile SIRS (systemic inflammatory response syndrome) (H) Systemic inflammatory response syndrome, unspecified Type 2 diabetes mellitus without complication, without long-term current use of insulin (H) Moderate episode of recurrent major depressive disorder (H) PTSD (post-traumatic stress disorder) Posttraumatic stress disorder Morbid obesity (H) Morbid obesity Abnormal electrocardiogram Nonspecific abnormal electrocardiogram (ECG) (EKG) Abnormal electrocardiogram Nonspecific abnormal electrocardiogram (ECG) (EKG) Chronic diastolic congestive heart failure (H) Chronic diastolic heart failure documented in this encounter Additional Health Concerns Infection Onset Date Last Indicated Resolved Time C-difficile 10/15/2022 10/27/2022 11/26/2022 11:4 0 PM CDT Assessment Noted Time PHQ-9 Depression Total Score: 10 023 2:06 PM CDT documented as of this encounter Care Teams Accountant Auditor Relationship Specialty [place] [address] [place] [address] PCP - General Family Medicine 05/18/22 Jovany Gonzalez MD [facility] [address] [facility] [address] [place] [address] Orthopedics 02/15/17 Staci Woodward, ACQUISITIONS EDITOR [place] [address] [place] [address] Nurse Practitioner Nurse Practitioner Psych/Mental Health 05/10/17 Reanna Smith, RD [facility] [address] [place] [address] Geothermal Sheet Metal Worker Dietitian, Registered 07/25/19 Roshni Nascimento, RN Personal Advocate & Liaison (PAL) Family Medicine 08/18/20 Kiet Swain MD [address] [place] [address] [id number] Referring Physician Psychiatry 09/19/20 Winsome Pkie APRN NAILER HAND [address] [address] Nurse Practitioner Psychiatry 09/19/20 Tori Hines, [facility], [facility]–[address] [place], [place] [id number] Electron Gun Inspector Electron Gun Inspector - Clinical 09/19/20 Miranda Queen [facility] [address] [place] [address] Pharmacist Pharmacist 11/12/20 Marisel Armando MD [address] [place] [address] [id number] Gastroenterology 02/05/21 Marisel Armando MD [address] [place] [address] Assigned Gastroenterology Provider 03/08/21 12/24/22 Wesley Barrett MD [address] [place] [address] [address] [place] [address] Assigned Neuroscience Provider 05/10/21 [place] [address] [place] [address] Assigned PCP 05/15/22 Katiana Read MD [address] [place] [address] [address] [place] [address] Assigned Endocrinology Provider 06/19/22 [place] PhD [address] [place] [address] Assigned Behavioral Health Provider 07/03/22 12/31/22 Deena Garza APRN NAILER HAND [address] [place] [address] Assigned Pain Medication Provider 07/19/22 10/29/22 [place] [address] [place] [address] Nurse Practitioner Nurse Practitioner 10/18/22 Elham Stack, [facility] [address] [place] [address] Pharmacist Pharmacist 10/19/22 Michelle Guzman DPM, Podiatry/Foot and Ankle Surgery [address] [facility] [address] [place] [address] Assigned Musculoskeletal Provider 10/16/22 04/08/23 documented as of this encounter
--- OUTSIDE RECORDS SUMMARY | 2023-08-03 10:04 | XMS_ITS | Encounter Summary ---
Author Name Unknown Organization [facility] Address [address] [place] [address]. [place] [address] Care Team Providers Care Com Writer Name Role Phone Jovany Gonzalez MD Unavailable CrissyStaci jeong NP Unavailable Reanna Smith RD Unavailable Roshni Nascimento RN Unavailable Unavailable Kiet Swain MD Unavailable [phone] Winsome Pike APRN PLANT ETIOLOGIST Unavailable [phone] Tori HinesSW Unavailable Miranda Queen [facility] Unavailable Unavailable Marisel Armando MD Unavailable Marisel Armando MD Unavailable Wesley Barrett MD Unavailable [phone] Dyan Fuentes MD Primary Care Provider [phone] Dyan Fuentes MD Unavailable [phone] Katiana Read MD Unavailable [phone] Meme Singleton PhD Unavailable [phone] Deena Garza UPPER CUTTER OUT PLANT ETIOLOGIST Unavailable [phone] Mary Del Cid CLAY STRUCTURE BUILDER AND SERVICER Unavailable Elham Stack [facility] Unavailable [phone] Michelle Guzman DPM, Podiatry /Foot and Ankle Surgery Unavailable Reason for Visit * Reason Onset Date Comments Referral 10/19/2022 Encounter Details Date Type Department Care Team (Late st Contact Info) Description 10/19/2022 Telephone [facility] [address] [place] [address] [place] [address] [place] [address] Referral Social History Tobacco Use [...] 10/16/2021 PHQ-2 Answer Date Recorded PHQ-2 Score 0 06/14/2022 [facility] - Occupational Stress [...] suspected to have Coronavirus/COVID-19? Unable to assess 10/18/2022 10:31 AM CDT documented as of this encounter Miscellaneous Notes * Telephone Encounter - gNuyen Murray - 10/19/2022 1:56 PM CDT MTM referral from: Transitions of Care (recent hospital discharge or ED visit) MTM referral outreach attempt #2 on October 19, 2022 at 1:56 PM Outcome: Patient not reachable after several attempts, will route to [facility] Pharmacist/Provider as an FYI. [facility] scheduling number is [phone]. Thank you for the referral. Nguyen Murray - [facility] business analytics manager documented in this encounter Plan of Treatment Upcoming Encounters Date Type Department Care Team (Late st Contact Info) Description 08/18/2023 3:00 PM SUPERVISOR SEWER MAINTENANCE Office Visit [facility] [address] [facility] [address] [place] [address] Katiana Read MD [address] [place] [address] documented as of this encounter Visit Diagnoses Not on filedocumented in this encounter Additional Health Concerns Infection Onset Date Last Indicated Resolved Time C-difficile 10/15/2022 10/27/2022 11/26/2022 11:4 0 PM CDT Assessment Noted Time PHQ-9 Depression Total Score: 13 022 3:28 PM SUPERVISOR SEWER MAINTENANCE documented as of this encounter Care Teams Com Writer Relationship Specialty [place] [address] [place] [address] PCP - General Family Medicine 05/18/22 Jovany Gonzalez MD [facility] [address] [facility] [address] [place], [place] [address] Orthopedics 02/15/17 Staci Woodward CLAY STRUCTURE BUILDER AND SERVICER [place] [address] [place], [place] [address] Nurse Practitioner Nurse Practitioner Psych/Mental Health 05/10/17 Reanna Smith, RD [place] [address] [place], [place] [address] Casing Puller Dietitian, Registered 07/25/19 Roshni Nascimento, RN Personal Advocate & Liaison (PAL) Family Medicine 08/18/20 Kiet Swain MD [address] [place] [address] 697334 Referring Physician Psychiatry 09/19/20 Winsome Pike APRN PLANT ETIOLOGIST [address] [place] [address] [id number] Nurse Practitioner Psychiatry 09/19/20 Tori Hines, [facility] [address] [place] [address] [id number] Measurement Superintendent Measurement Superintendent - Clinical 09/19/20 Miranda Queen [facility] [address] [place] [address] Pharmacist Pharmacist 11/12/20 Marisel Armando MD [address] [place] [address] 858755 Gastroenterology 02/05/21 Marisel Armando MD [address] [place] [address] Assigned Gastroenterology Provider 03/08/21 12/24/22 Wseley Barrett MD [address] [facility] [address] [facility] [address] [place] [address] Assigned Neuroscience Provider 05/10/21 [place] [address] [place] [address] Assigned PCP 05/15/22 Katiana Read MD [address] [place] [address] Assigned Endocrinology Provider 06/19/22 [place] [address] [place] [address] Assigned Behavioral Health Provider 07/03/22 12/31/22 Deena Garza APRN PLANT ETIOLOGIST [address] [place] [address] Assigned Pain Medication Provider 07/19/22 10/29/22 Mary Del Cid, [facility] [address] [place] [address] Nurse Practitioner Nurse Practitioner 10/18/22 Elham Stack, [facility] [address] [place] [address] Pharmacist Pharmacist 10/19/22 Michelle Guzman, DPM, Podiatry/Foot and Ankle Surgery [address] [place] [address] Assigned Musculoskeletal Provider 10/16/22 04/08/23 documented as of this encounter
--- OUTSIDE RECORDS SUMMARY | 2023-08-03 10:04 | XMS_ITS | Encounter Summary ---
Author Name Unknown Organization [facility] Address [address] [place] [address]. [place] [address] Care Team Providers Care Barrel Builder Name Role Phone Jovany Gonzalez MD Unavailable [phone] CrissySatci jeong NP Unavailable [phone] Unavailable [phone] Roshni Nascimento RN Unavailable Unavailable Kiet Swain MD Unavailable [phone] JUSTICE Unavailable [phone] Tori HinesSW Unavailable Miranda Queen [facility] Unavailable Unavailable Marisel Armando MD Unavailable Marisel Armando MD Unavailable Wesley Barrett MD Unavailable [phone] Dyan Fuentes MD Primary Care Provider [phone] Dyan Fuentes MD Unavailable [phone] Katiana Read MD Unavailable [phone] Meme Singleton PhD Unavailable [phone] Deena Garza DIRECTOR [facility] JUSTICE Unavailable [phone] Mary Del Cid ASSISTANT PLANT MANAGER Unavailable [phone] Michelle Guzman DPM, Podiatry /Foot and Ankle Surgery Unavailable Reason for Visit * Reason Onset Date Comments Patient Request 10/18/2022 Disclosing medic ation information Encounter Details Date Type Department Care Team (Late st Contact Info) Description 10/18/2022 Telephone [facility] [place] [address] [facility] [address] [place], [place] [address] [place] [address] [place] [id number] Patient Request (Disclosing medication information) Social History Tobacco Use Types Packs/Day Years [...] How often do you attend chur or lutheran services? 1 to 4 times per year [...] Answer Date Recorded PHQ-2 Score 0 06/14/2022 [facility] Occupat ional Health - Occupational [...] encounter Miscellaneous Notes * Telephone Encounter - Mary Del Cid NP - 10/18/2022 11:13 AM CDT Noted, thank you. Mary Del Cid NP * Telephone Encounter - Janine Argueta RN - 10/18/2022 11:02 AM CDT Routing as FYI only Janine Raymundo RN Sql Ssrs Ssis Developer [facility] * Telephone Encounter - Misty Monroy - 10/18/2022 10:32 AM CDT [facility] Call Center Phone Message May a detailed message be left on voicemail: yes Reason for Call: Other: Patient called stating she was hospitalized for C. Diff from 10/14/2022-10/17/2022. She states she received Dilaudid injections in the hospital and wanted to inform Mary Del Cid NP to remain compliant with the Pain clinic. Action Taken: Message routed to: Other: [facility] Travel Screening: Not Applicable documented in this encounter Plan of Treatment Upcoming Encounters Date Type Department Care Team (Late st Contact Info) Description 08/18/2023 3:00 PM SEQUINS SPOOLER Office Visit [facility] [address] [place] [address] Katiana Read MD [address] [place] [address] documented as of this encounter Visit Diagnoses Not on filedocumented in this encounter Additional Health Concerns Infection Onset Date Last Indicated Resolved Time C-difficile 10/15/2022 10/27/2022 11/26/2022 11:4 0 PM CDT Assessment Noted Time PHQ-9 Depression Total Score: 13 022 3:28 PM SEQUINS SPOOLER documented as of this encounter Care Teams Barrel Builder Relationship Specialty [place] [address] [place] [address] PCP - General Family Medicine 05/18/22 Jovany Gonzalez MD [facility] [address] [facility] [address] [place] [address] Orthopedics 02/15/17 Staci Woodward, ASSISTANT PLANT MANAGER [place] [address] [place], [place] [address] Nurse Practitioner Nurse Practitioner Psych/Mental Health 05/10/17 Reanna Smith, RD [place] [address] [place], [place] [address] Photographic Process Worker Dietitian, Registered 07/25/19 Roshni Nascimento, RN Personal Advocate & Liaison (PAL) Family Medicine 08/18/20 Kiet Swain MD [address] [facility] [address] [place], [place] 12[address] Referring Physician Psychiatry 09/19/[address] JUSTICE [address] [place] [address] 144384 Nurse Practitioner Psychiatry 09/19/20 Tori Hines, [facility] [address]50 [place] [address] Stave Inspector Stave Inspector - Clinical 09/19/20 RichardcoriMiranda scott [facility] [address] [place] [address] Pharmacist Pharmacist 11/12/20 Marisel Armando MD [address] [place] [address] Gastroenterology 02/05/21 Marisel Armando MD [address] [place] [address] Assigned Gastroenterology Provider 03/08/21 12/24/22 Wesley Barrett MD [address] [place] [address] 96 [place] [address] Assigned Neuroscience Provider 05/10/21 [place] [address] [place] [address] Assigned PCP 05/15/22 Katiana Read MD [address] [address] Assigned Endocrinology Provider 06/19/22 [place] [address] [place] [address] Assigned Behavioral Health Provider 07/03/22 12/31/[address] JUSTICE [address] 740327 Assigned Pain Medication Provider 07/19/22 10/29/22 [place] [address] [place] [address] Nurse Practitioner Nurse Practitioner 10/18/22 Michelle Guzman DPM, Podiatry/Foot and Ankle Surgery [address] [place] [address] Assigned Musculoskeletal Provider 10/16/22 04/08/23 documented as of this encounter
--- OUTSIDE RECORDS SUMMARY | 2023-08-03 10:04 | XMS_ITS | Encounter Summary ---
Author Name Unknown Organization [facility] Address [address] [place] [address]. [place] [address] Care Team Providers Care Scuba Dive Training Instructor Name Role Phone Jovany Gonzalez MD Unavailable CrissyStaci jeong NP Unavailable [phone] Unavailable Roshni Nascimento RN Unavailable Unavailable Kiet Swain MD Unavailable Winsome Pike APRN MOBILE ENGINEER Unavailable [phone] Tori HinesSW Unavailable Miranda Queen [facility] Unavailable Unavailable Marisel Armando MD Unavailable Marisel Armando MD Unavailable Wesley Barrett MD Unavailable [phone] Dyan Fuentes MD Primary Care Provider [phone] Dyan Fuentes MD Unavailable [phone] Katiana Read MD Unavailable [phone] Meme Singleton PhD Unavailable [phone] Deena Garza MANAGER FASHION MOBILE ENGINEER Unavailable [phone] Mary Del Cid NOZZLE TENDER Unavailable Elham Stack [facility] Unavailable [phone] Emerita Potter [facility] Unavailable [phone] Mary Del Cid NOZZLE TENDER Unavailable [phone] Michelle Guzman DPM, Podiatry /Foot and Ankle Surgery Unavailable Dyan Fuentes MD Unavailable [phone] Mary Del Cid NP Unavailable [phone] Aubrey Jones MD Unavailable [phone] Blanquita Morales Unavailable Unavailable Aubrey Jones MD Unavailable + [phone] Reason for Visit * Reason Onset Date Comments Refill Request 10/23/2022 risperiDONE (RIS PERDAL M-TABS) 0.5 MG ODT Encounter Details Date Type Department Care Team (Late st Contact Info) Description 10/23/2022 Refill [facility] [address] [place] [phone] [place] [address] [place] [address] Refill Request (risperiDONE (RISPERDAL M-TABS) 0.5 MG ODT) Social History Tobacco Use Types Packs/Day Years [...] week 10/16/2021 How often do you attend [facility] or synagogue services? 1 to 4 times [...] Answer Date Recorded PHQ-2 Score 2 10/25/2022 [facility] of Occupat ional [facility] - [...] st Contact Info) Description 08/18/2023 3:00 PM RETICLE PRINTER [facility] [address] [place] [address] Katiana Read MD [address] [address] [place] [address] documented as of this encounter Visit Diagnoses Diagnosis Moderate episode of recurrent major depressive disorder (H) PTSD (post-traumatic stress disorder) Posttraumatic stress disorder documented in this encounter Additional Health Concerns Infection Onset Date Last Indicated Resolved Time C-difficile 10/15/2022 10/27/2022 11/26/2022 11:4 0 PM CDT Rule Out C-difficile 10/26/2022 10/27/2022 023 2:14 AM CDT Rule Out C-difficile 12/05/2022 12/05/2022 023 9:44 AM CDT Assessment Noted Time PHQ-9 Depression Total Score: 13 022 3:28 PM RETICLE PRINTER documented as of this encounter Care Teams Scuba Dive Training Instructor Relationship Specialty [place] [address] [place] [address] PCP - General Family Medicine 05/18/22 Jovany Gonzalez MD [facility] [address] [facility] [address] [place] [address] Orthopedics 02/15/17 Staci Woodward, NOZZLE TENDER [place] [address] [place], [place] [address] Nurse Practitioner Nurse Practitioner Psych/Mental Health 05/10/17 Reanna Smith, RD [place] [address] [place], [place] [address] Flash Ranging Crewmember Dietitian, Registered 07/25/19 Roshni Nascimento, RN Personal Advocate & Liaison (PAL) Family Medicine 08/18/20 Kiet Swain MD [address] [place], [place] [address] [place], [place] [address] Referring Physician Psychiatry 09/19/20 Winsome Pike, VIDHI MOBILE ENGINEER [address] [place], [place] [address] Nurse Practitioner Psychiatry 09/19/20 Tori Hines, [facility] [address] [place] [address] 437144 Market Research Associate Market Research Associate - Clinical 09/19/20 [facility] [address] [place] [address] Pharmacist Pharmacist 11/12/20 Marisel Armando MD [address] [place] [address] Gastroenterology 02/05/21 Marisel Armando MD [address] [place] [address] Assigned Gastroenterology Provider 03/08/21 12/24/22 Wesley Barrett MD [address] [place] [address] 900635 Assigned Neuroscience Provider 05/10/21 [place] [address] [place] [address] Assigned PCP 05/15/22 Katiana Read MD [address] [place] [address] 469100 Assigned Endocrinology Provider 06/19/22 Meme [place], PhD [address] [place] [address] Assigned Behavioral Health Provider 07/03/22 12/31/22 Deena Garza, MANAGER FASHION MOBILE ENGINEER [address] [place] [address] Assigned Pain Medication Provider 07/19/22 10/29/22 Mary Del Cid, RAFA[place] [address] [place] [address] Nurse Practitioner Nurse Practitioner 10/18/22 Elham Stack, [facility] [address] [place] [address] Pharmacist Pharmacist 10/19/22 Emerita Potter, [facility] Clinic Wireless Technician Market Research Associate - Clinical 10/29/22 11/02/22 [place] [address] [address] [place] [address] Assigned Pain Medication Provider 10/30/22 12/03/22 Michelle Guzman DPM, Podiatry/Foot and Ankle Surgery [address] [place] [address] Assigned Musculoskeletal Provider 10/16/22 04/08/23 [place] [address] [place] [address] Assigned Pain Medication Provider 12/04/22 04/01/23 [place] [address] [place] [address] Nurse Practitioner Nurse Practitioner 01/17/23 01/17/23 Aubrey Jones MD [address] [place] [address] Cardiovascular Disease 03/28/23 Blanquita Morales Flash Ranging Crewmember Diabetes Education 04/25/23 Aubrey Jones MD [address] [place] [address] Assigned Heart and Vascular Provider 05/07/23 documented as of this encounter
--- OUTSIDE RECORDS SUMMARY | 2023-08-03 10:04 | XMS_ITS | Encounter Summary ---
Author Name Unknown Organization [facility] Address [address] [place] [address]. [place] [address] Care Team Providers Care Real Estate Loan Officer Name Role Phone Jovany Gonzalez MD Unavailable CrissyStaci jeong NP Unavailable [phone] Unavailable Roshni Nascimento RN Unavailable Unavailable Kiet Swain MD Unavailable [phone] Winsome Pike APRN SHOVEL OPERATOR Unavailable [phone] Tori HinesSW Unavailable Miranda Queen [facility] Unavailable Unavailable Marisel Armando MD Unavailable Marisel Armando MD Unavailable Wesley Barrett MD Unavailable [phone] Dyan Fuentes MD Primary Care Provider [phone] Dyan Fuentes MD Unavailable [phone] Katiana Read MD Unavailable [phone] Meme Singleton PhD Unavailable [phone] Deena Garza NAIL PULLER SHOVEL OPERATOR Unavailable [phone] Mary Del Cid INTENSIVE CARE ANAESTHETIST Unavailable Elham Stack [facility] Unavailable [phone] Michelle Guzman DPM, Podiatry /Foot and Ankle Surgery Unavailable Encounter Details Date Type Department Care Team (Latest Contact Info) Description 10/25/2022 Travel Social History Tobacco Use Types Packs/Day [...] week 10/16/2021 How often do you attend [facility] or gnosticism services? 1 to 4 times per year [...] Answer Date Recorded PHQ-2 Score 2 10/25/2022 [facility] of Occupat ional Health - Occupational Stress [...] to have Coronavirus/COVID-19? No / Unsure 10/25/2022 3:53 PM CDT documented as of this encounter Plan of Treatment Upcoming Encounters Date Type Department Care Team (Late st Contact Info) Description 08/18/2023 3:00 PM CUSTODIAL AIDE Office Visit [facility] [address] [place] [address] Katiana Read MD [address] [place] [address] documented as of this encounter Visit Diagnoses Not on filedocumented in this encounter Additional Health Concerns Infection Onset Date Last Indicated Resolved Time C-difficile 10/15/2022 10/27/2022 11/26/2022 11:4 0 PM CDT Assessment Noted Time PHQ-9 Depression Total Score: 10 023 2:06 PM CDT documented as of this encounter Care Teams Real Estate Loan Officer Relationship Specialty [place] [address] [place] [address] PCP - General Family Medicine 05/18/22 Jovany Gonzalez MD [facility] [address] [facility] 605 [place], [place] [address] Orthopedics 02/15/17 Staci Woodward INTENSIVE CARE ANAESTHETIST [place] [address] [place] [address] Nurse Practitioner Nurse Practitioner Psych/Mental Health 05/10/17 Reanna Smith, RD [facility] [address] [place] [address] Felt Cutter Dietitian, Registered 07/25/19 Roshni Nascimento, RN Personal Advocate & Liaison (PAL) Family Medicine 08/18/20 Kiet Swain MD [facility]15 [place] [address] Referring Physician Psychiatry 09/19/20 Winsome Pike APRN CNP [address] [address] Nurse Practitioner Psychiatry 09/19/20 Tori Hines, [facility] [address] [place], [place] [address] Bankruptcy Legal Assistant Bankruptcy Legal Assistant - Clinical 09/19/20 Miranda Queen [facility] [address] [place] [address] Pharmacist Pharmacist 11/12/20 Marisel Armando MD [address] [place], [place] [address] Gastroenterology 02/05/21 Marisel Armando MD [address] [place] [address]675 Assigned Gastroenterology Provider 03/08/21 12/24/22 Wesley Barrett MD [address] [facility] 96 [place], [place] [address] Assigned Neuroscience Provider 05/10/21 [place] [address] [place] [address] Assigned PCP 05/15/22 Katiana Read MD [address] [address] Assigned Endocrinology Provider 06/19/22 Meme Sing[place], PhD [address] [place] [address] Assigned Behavioral Health Provider 07/03/22 12/31/22 Deena Garza APRN SHOVEL OPERATOR [address] [place] [place] [address] Assigned Pain Medication Provider 07/19/22 10/29/22 Mary Del Cid, RAFAEL [address] [place] [address] Nurse Practitioner Nurse Practitioner 10/18/22 Elham Stack, [facility] [address] [place] [address] Pharmacist Pharmacist 10/19/22 Michelle Guzman, DPM, Podiatry/Foot and Ankle Surgery [address] [place] [address] Assigned Musculoskeletal Provider 10/16/22 04/08/23 documented as of this encounter
--- OUTSIDE RECORDS SUMMARY | 2023-08-03 10:04 | XMS_ITS | Encounter Summary ---
Author Name Unknown Organization [facility] Address [address] [place] [address]. [place] [address] Care Team Providers Care Pharmacy Intern Name Role Phone Jovany Gonzalez MD Unavailable CrissyStaci jeong NP Unavailable Reanna Smith RD Unavailable Roshni Nascimento RN Unavailable Unavailable Kiet Swain MD Unavailable [phone] Winsome Pike APRN FAMILY SERVICE CASEWORKER Unavailable [phone] Tori HinesSW Unavailable Miranda Queen [facility] Unavailable Unavailable Marisel Armando MD Unavailable Marisel Armando MD Unavailable Wesley Barrett MD Unavailable [phone] Dyan Fuentes MD Primary Care Provider [phone] Dyan Fuentes MD Unavailable [phone] Katiana Read MD Unavailable [phone] Meme Singleton PhD Unavailable [phone] Deena Garza COUNTER SUPPLY WORKER FAMILY SERVICE CASEWORKER Unavailable [phone] Mary Del Cid NYLON HOT WIRE CUTTER Unavailable Elham Stack [facility] Unavailable [phone] Michelle Guzman DPM, Podiatry /Foot and Ankle Surgery Unavailable Encounter Details Date Type Department Care Team (Latest Contact Info) Description 10/26/2022 Travel Social History Tobacco Use Types Packs/Day [...] week 10/16/2021 How often do you attend [facility] or jainism services? 1 to 4 times per year 10/16/2021 Do you belong to any clubs o r organizations such as samaritan groups, unions, fraternal or athletic groups, or [...] Answer Date Recorded PHQ-2 Score 2 10/25/2022 [facility] [place] of Occupat ional Health - Occupational Stress [...] place to sleep or slept in a snf (including now)? No 10/16/2021 Education Answer Date [...] st Contact Info) Description 08/18/2023 3:00 PM FRAME TABLE OPERATOR Office Visit [place] [address] [place] [address] Katiana Read MD [address] [facility] 200 [place] [address] documented as of this encounter Visit Diagnoses Not on filedocumented in this encounter Additional Health Concerns Infection Onset Date Last Indicated Resolved Time C-difficile 10/15/2022 10/27/2022 11/26/2022 11:4 0 PM CDT Rule Out C-difficile 10/26/2022 10/27/2022 023 2:14 AM CDT Assessment Noted Time PHQ-9 Depression Total Score: 10 023 2:06 PM CDT documented as of this encounter Care Teams Pharmacy Intern Relationship Specialty [place] [address] [place] [address] PCP - General Family Medicine 05/18/22 Jovany Gonzalez MD [facility] [address] [facility] 605 [place] [address] Orthopedics 02/15/17 Staci Woodward, NYLON HOT WIRE CUTTER [place] [address] [place] [address] Nurse Practitioner Nurse Practitioner Psych/Mental Health 05/10/17 Reanna Smith, RD [place] [address] [place] [address] Disulfurizer Tender Dietitian, Registered 07/25/19 Roshni Nascimento, RN Personal Advocate & Liaison (PAL) Family Medicine 08/18/20 Kiet Swain MD [facility] [address] [place], [place] [address] Referring Physician Psychiatry 09/19/20 Winsome Pike APRN FAMILY SERVICE CASEWORKER [address] [place], [place] [address] Nurse Practitioner Psychiatry 09/19/20 Tori Hines, [facility] [address] [place], [place] [address] Sample Case Porter Sample Case Porter - Clinical 09/19/20 Miranda Queen [facility] [address] [place] [address] Pharmacist Pharmacist 11/12/20 Marisel Armando MD [address] [place] [address] 6[address]255 Gastroenterology 02/05/21 Marisel Armando MD [address] [place] [address] 582465 Assigned Gastroenterology Provider 03/08/21 12/24/22 Wesley Barrett MD [address] [place] [address] 96 [place] [address] Assigned Neuroscience Provider 05/10/21 [place] [address] [place], [place] 64[address] Assigned PCP 05/15/22 Katiana Read MD [address] [facility] 200 [place], [place] [address] Assigned Endocrinology Provider 06/19/22 Meme Singleton, PhD [address] [address] Assigned Behavioral Health Provider 07/03/22 12/31/22 Deena Garza, COUNTER SUPPLY WORKER FAMILY SERVICE CASEWORKER [address] [place] [address] Assigned Pain Medication Provider 07/19/22 10/29/22 Mary Del Cid, RAFAEL [address] [place] [address] Nurse Practitioner Nurse Practitioner 10/18/22 Elham Stack, [facility] [address] [facility] [place], [place] [address] Pharmacist Pharmacist 10/19/22 Michelle Guzman DPM, Podiatry/Foot and Ankle Surgery [address] [place] [address] Assigned Musculoskeletal Provider 10/16/22 04/08/23 documented as of this encounter
--- OUTSIDE RECORDS SUMMARY | 2023-08-03 10:04 | XMS_ITS | Encounter Summary ---
Author Name Unknown Organization [place] Address [address] [place] [address]. [place] [address] Care Team Providers Care Offal Baler Name Role Phone Jovany Gonzalez MD Unavailable [phone] CrissyStaci jeong NP Unavailable [phone] Unavailable Roshni Nascimento RN Unavailable Unavailable Kiet Swain MD Unavailable [phone] Winsome Pike APRN GROUNDSKEEPER Unavailable [phone] Tori HinesSW Unavailable Miranda Queen [facility] Unavailable Unavailable Marisel Armando MD Unavailable Marisel Armando MD Unavailable Wesley Barrett MD Unavailable [phone] Dyan Fuentes MD Primary Care Provider [phone] Dyan Fuentes MD Unavailable [phone] Katiana Read MD Unavailable [phone] Meme Singleton PhD Unavailable [phone] Deena Garza INTERNATIONAL MANAGER GROUNDSKEEPER Unavailable [phone] Mary Del Cid ISOTOPE TECHNOLOGIST Unavailable [phone] Elham Stack [facility] Unavailable [phone] Michelle Guzman DPM, Podiatry /Foot and Ankle Surgery Unavailable Reason for Visit * Reason Comments Nausea, Vomiting, & Diarrhea Encounter Details Date Type Department Care Team (Late st Contact Info) Description 10/25/2022 3:49 PM CDT - 10/25/2022 6:47 PM CDT Emergency [facility] Emergency Dept [address] [place] [address] Ace Perkins MD [facility] [address] [place] [address] Discharge Disposition: Left Without Being Seen Social History Tobacco Use Types Packs/Day Years [...] How often do you attend chur or church services? 1 to 4 times per year 10/16/2021 Do you belong to any clubs o r organizations such as mandaeism groups, unions, fraternal or athletic groups, or [...] Answer Date Recorded PHQ-2 Score 2 10/25/2022 [facility] - Occupational Stress [...] place to sleep or slept in a penitentiary (including now)? No 10/16/2021 Education Answer Date [...] Sign Reading Time Taken Comments Blood Pressure 166/109 10/25/2022 3:54 PM CDT Pulse 106 10/25/2022 3:54 PM CDT Temperature 37.1 ??C (98.7 ??F) 10/25/2022 3:55 PM CD T Respiratory Rate 20 10/25/2022 3:54 PM CDT Oxygen Saturation 99% 10/25/2022 3:54 PM CDT Inhaled Oxygen Concentration - - Weight 106.1 kg (234 lb) 10/25/2022 3:54 PM CDT Height 172.7 cm (5' 8) 10/25/2022 3:54 PM CDT Body Mass Index 35.58 10/25/2022 3:54 PM CDT documented in this encounter Medications at Time of Discharge Medication Sig Dispensed Refills Start Date End Date brexpiprazole (REXULTI) 2 MG tablet Take 2 mg by mouth daily 0 calcium carbonate (OS-ALISA) 1500 (600 Ca) MG tabletIndications:Tob acco dependence Take 1 tablet (600 mg) by mouth 2 times daily (with meals) 100 tablet 0 05/06/2021 clonazePAM (KLONOPIN) 1 MG tablet Take 1 mg by mouth 2 times daily 0 Continuous Blood Gluc Revenue Inspector (DEXCOM G6 ANALYTICAL STRATEGIST) DEVIIndications:Type 2 diabetes mellitus without complication, with [...] daily (with breakfast) 100 tablet 1 05/06/2021 nitroGLYcerin (NITROSTAT) 0.4 MG sublingual tabletIndications:Ariadna st pain, unspecified type Place 1 tablet (0.4 mg) under the tongue every 5 minutes as needed for chest pain 25 tablet 0 08/20/2019 Potassium Gluconate 595 MG CAPSIndications:Gener alized muscle weakness Take 1 capsule by mouth daily 100 capsule 1 05/06/2021 lactobacillus rhamnosus, GG, (CULTURELL) capsuleIndications:C. difficile colitis [...] daily OK to fill 09/21/22 start 09/23/22 90 Film 0 09/20/2022 10/28/2022 chlorhexidine (PERIDEX) 0.12 % solution Take 15 mLs by mouth daily as needed 0 03/20/2021 10/26/2022 colestipol (COLESTID) 1 g tablet Take 1 [...] mouth daily 90 tablet 3 06/14/2022 05/12/2023 hydrOXYzine (ATARAX) 25 MG tabletIndications:Anx iety TAKE 1 TABLET (25 MG) BY MOUTH EVERY 6 HOURS NEEDED FOR ANXIETY OR PAIN ADJUVANT. 24 tablet 1 11/18/2021 10/26/2022 insulin aspart (NOVOLOG FLEXPEN) 100 UNIT/ML penIndications:Type [...] 1 06/15/2022 07/14/2023 Lidocaine (LIDOCARE) 4 % PatchIndications:Post -op pain Place 1 patch onto the skin every 24 hours To prevent lidocaine toxicity, patient should be patch free for 12 hrs daily. 10 patch 0 11/16/2021 10/26/2022 menthol (ICY HOT) 5 % PTCHIndications:Post- op pain Apply 1 patch topically every 8 hours as needed for muscle soreness 10 patch 0 11/16/2021 10/26/2022 methocarbamol (ROBAXIN) 500 MG tabletIndications:Mus marek spasm Take 1-2 tablets (500-1,000 mg) by mouth 4 times daily as needed for muscle spasms 150 tablet 1 11/09/2021 10/26/2022 metoprolol tartrate (LOPRESSOR) 25 MG tabletIndications:Edmundo ign essential hypertension TAKE 1 TABLET BY MOUTH TWICE A DAY 180 tablet 3 06/14/2022 05/12/2023 naloxone (NARCAN) nasal sprayIndications:At risk for substance overdose [place] 1 spray (4 mg) into one nostril alternating nostrils as needed 0.2 mL 0 11/19/2016 11/11/2022 nystatin (MYCOSTATIN) 717823 UNIT/GM external ointmentIndications:S kin rash Apply topically 2 times daily 30 g 1 04/01/2021 10/26/2022 omega-3 acid ethyl esters (LOVAZA) 1 g [...] 06/14/2022 05/12/2023 risperiDONE (RISPERDAL M-TABS) 0.5 MG ODTIndications: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 (H),PTSD (post-traumatic stress disorder) Take 2 tablets (1 mg) by mouth daily 180 tablet 0 10/25/2022 10/26/2022 rosuvastatin (CRESTOR) 40 MG tabletIndications:Hyp ertriglyceridemia,Hyp erlipidemia LDL goal <100 Take 1 tablet (40 mg) by mouth daily 90 tablet 3 06/14/2022 05/12/2023 vancomycin (VANCOCIN) 125 MG capsuleIndications:Cl ostridioides difficile Take 1 capsule (125 mg) by mouth 4 times daily for 14 days 56 capsule 0 10/17/2022 10/28/2022 vitamin D3 (CHOLECALCIFEROL) 1.25 MG (15599 UT) capsuleIndications:Vi tamin D deficiency Take 50,000 Units by mouth every 7 days Mondays 100 capsule 0 05/06/2021 10/26/2022 documented as of this encounter ED Notes * Imani Govea RN - 10/25/2022 3:55 PM CDT Pt arrives to the ED due to having nausea, vomiting and diarrhea. Known c-diff infection. Discharged a week ago Tuesday. On oral vanco but states that it is not working. States that she normally takesliquid vanco and that works better. Having generalized abdominal pain. 10 stools a day. documented in this encounter Plan of Treatment Upcoming Encounters Date Type Department Care Team (Late st Contact Info) Description 08/18/2023 3:00 PM PLATEMAN Office Visit [facility] [address] [place] [address] Katiana Read MD [address] [place], [place] [id number] documented as of this encounter Procedures Procedure Name Priority Date/Time Associated Diagnosis Comments EXTRA TUBE STAT 10/25/2022 4:08 PM CDT EXTRA RED TOP TUBE STAT 10/25/2022 4: 08 PM CDT EXTRA BLUE TOP TUBE STAT 10/25/2022 4 :08 PM CDT CBC WITH PLATELETS AND DIFFERENTIAL STAT 10/25/2022 4:08 PM CDT CBC WITH PLATELETS & DIFFERENTIAL STAT 10/25/2022 4:08 PM CDT BASIC METABOLIC PANEL STAT 10/25/2022 4:08 PM CDT documented in this encounter Results * Extra Red Top Tube (10/25/2022 4:08 PM CDT) [facility] Signature Hold Specimen [facility] 10/25/2022 5:31 PM CDT [facility] Blood STRUCTURE OF LEFT UPPER LIMB / Unknown Venipuncture / Unknown 10/25/2022 4:08 PM CDT 10/25/2022 4:18 PM CDT Ace Perkins MD LAB - BLOOD ORDERA BLES [facility] [address] Lab (1st floor, no room number) [place] [address], [facility] [phone] * Extra Blue Top Tube (10/25/2022 4:08 PM CDT) [facility] Signature Hold Specimen [facility] 10/25/2022 5:31 PM CDT LABORATORY Blood STRUCTURE OF LEFT UPPER LIMB / Unknown Venipuncture / Unknown 10/25/2022 4:08 PM CDT 10/25/2022 4:18 PM CDT Ace Perkins MD LAB - BLOOD ORDERA BLES [facility] [address] Lab (1st floor, no room number) [place] [address], [facility] [phone] * (ABNORMAL) CBC with platelets and differential (10/25/2022 4:08 PM CDT) [facility] Signature WBC Count 4.7 4.0 - 11.0 10e3/uL 10/25/2022 4:25 PM CDT [facility] RBC Count 4.32 3.80 - 5.20 10e6/uL 10/25/2022 4:25 PM CDT [facility] Hemoglobin 13.6 11.7 - 15.7 g/dL 10/25/2022 4:25 PM CDT [facility] Hematocrit 41.0 35.0 - 47.0 % 10/25/2022 4:25 PM CDT [facility] MCV 95 78 - 100 fL 10/25/2022 4:25 PM CDT [facility] MCH 31.5 26.5 - 33.0 pg 10/25/2022 4:25 PM CDT [facility] MCHC 33.2 31.5 - 36.5 g/dL 10/25/2022 4:25 PM CDT [facility] RDW 16.0(H) 10.0 - 15.0 % 10/25/2022 4:25 PM CDT [facility] Platelet Count 285 150 - 450 10e3/uL 10/25/2022 4:25 PM CDT [facility] % Neutrophils 42 % 10/25/2022 4:25 PM CDT [facility] % Lymphocytes 48 % 10/25/2022 4:25 PM CDT [facility] % Monocytes 8 % 10/25/2022 4:25 PM CDT [facility] % Eosinophils 0 % 10/25/2022 4:25 PM CDT [facility] % Basophils 1 % 10/25/2022 4:25 PM CDT [facility] % Immature Granulocytes 1 % 10/25/2022 4:25 PM CDT [facility] NRBCs per 100 WBC 0 <1 /100 023 4:25 PM CDT [facility] Absolute Neutrophils 2.0 1.6 - 8.3 10e3/uL 10/25/2022 4:25 PM CDT [facility] Absolute Lymphocytes 2.3 0.8 - 5.3 10e3/uL 10/25/2022 4:25 PM CDT [facility] Absolute Monocytes 0.4 0.0 - 1.3 10e3/uL 10/25/2022 4:25 PM CDT [facility] Absolute Eosinophils 0.0 0.0 - 0.7 10e3/uL 10/25/2022 4:25 PM CDT [facility] Absolute Basophils 0.1 0.0 - 0.2 10e3/uL 10/25/2022 4:25 PM CDT [facility] Absolute Immature Granulocytes 0.0 <=0.4 10e3/uL 10/25/2022 4:25 PM CDT [facility] Absolute NRBCs 0.0 10e3/uL 10/25/2022 4:25 PM CDT [facility] Blood STRUCTURE OF LEFT UPPER LIMB / Unknown Venipuncture / Unknown 10/25/2022 4:08 PM CDT 10/25/2022 4:18 PM CDT Ace Perkins MD LAB - BLOOD ORDERA BLES LABORATORY [facility] [address] Lab (1st floor, no room number) [place] [address], [facility] [phone] * (ABNORMAL) Basic metabolic panel (10/25/2022 4:08 PM CDT) Sodium 140 136 - 145 mmol/L 10/25/2022 4:40 PM CDT LABORATORY Potassium 4.0 3.4 - 5.3 mmol/L 10/25/2022 4:40 PM CDT LABORATORY Chloride 98 98 - 107 mmol/L 10/25/2022 4:40 PM CDT LABORATORY Carbon Dioxide (CO2) 23 22 - 29 mmol/L 10/25/2022 4:40 PM CDT LABORATORY Anion Gap 19(H) 7 - 15 mmol/L 10/25/2022 4:40 PM CDT [facility] Urea Nitrogen 13.1 8.0 - 23.0 mg/dL 10/25/2022 4:40 PM CDT LABORATORY Creatinine 0.91 0.51 - 0.95 mg/dL 10/25/2022 4:40 PM CDT LABORATORY Calcium 8.7(L) 8.8 - 10.2 mg/dL 10/25/2022 4:40 PM CDT LABORATORY Glucose 170(H) 70 - 99 mg/dL 10/25/2022 4:40 PM CDT [facility] GFR Estimate 71 >60 mL/min/1.7 3m2 10/25/2022 4:40 PM CDT [facility] Comment:eGFR calculated 2020 CKD-EPI equation. Blood STRUCTURE OF LEFT UPPER LIMB / Unknown Venipuncture / Unknown 10/25/2022 4:08 PM CDT 10/25/2022 4:18 PM CDT Ace Perkins MD LAB - BLOOD ORDERA BLES LABORATORY [facility] [address] Lab (1st floor, no room number) [place] [address], [facility] [phone] documented in this encounter Visit Diagnoses Not on filedocumented in this encounter Additional Health Concerns Infection Onset Date Last Indicated Resolved Time C-difficile 10/15/2022 10/27/2022 11/26/2022 11:4 0 PM CDT Assessment Noted Time PHQ-9 Depression Total Score: 10 023 2:06 PM CDT documented as of this encounter Care Teams Offal Baler Relationship Specialty [place] [address] [place] [address] PCP - General Family Medicine 05/18/22 Jovany Gonzalez MD [facility] [address] [facility] [address] [place] [address] Orthopedics 02/15/17 Staci Woodward NP [place] [facility] [address] [place], [place] [address] Nurse Practitioner Nurse Practitioner Psych/Mental Health 05/10/[address] [facility] [address] [place] [address] Interior Specialist Dietitian, Registered 07/25/19 Roshni Nascimento, RN Personal Advocate & Liaison (PAL) Family Medicine 08/18/20 Kiet Swain MD [address] [place], [place] [phone] [place], [place] [address] Referring Physician Psychiatry 09/19/20 Winsome Pike APRN GROUNDSKEEPER [address] [id number] Nurse Practitioner Psychiatry 09/19/20 Tori Hines, [facility] [address] [place] [address]304 Trauma Manager Trauma Manager - Clinical 09/19/20 [facility] [address] [place] [address] Pharmacist Pharmacist 11/12/20 Marisel Armando MD [address] [place] [address] [phone] Gastroenterology 02/05/21 Marisel Armando MD [address] [place] [address] [phone] Assigned Gastroenterology Provider 03/08/21 12/24/22 Wesley Barrett MD [address] [place] [address] 96 [place], [place] [address] Assigned Neuroscience Provider 05/10/21 [place] [address] [place] [address] Assigned PCP 05/15/22 Katiana Read MD [address] [facility] [address] [place], [place] [address] Assigned Endocrinology Provider 06/19/22 [place] [address] [address] [place] [address] Assigned Behavioral Health Provider 07/03/22 12/31/22 Deena Garza, INTERNATIONAL MANAGER GROUNDSKEEPER [address] [address] [place] 856017 Assigned Pain Medication Provider 07/19/22 10/29/22 [place] [address] [place] [place] [address] Nurse Practitioner Nurse Practitioner 10/18/22 Elham Stack, [facility] [address] [facility] [place], [place] [address] Pharmacist Pharmacist 10/19/22 Michelle Guzman, DPM, Podiatry/Foot and Ankle Surgery [address] [place] [address] Assigned Musculoskeletal Provider 10/16/22 04/08/23 documented as of this encounter
--- OUTSIDE RECORDS SUMMARY | 2023-08-03 10:04 | XMS_ITS | Encounter Summary ---
Author Name Unknown Organization [place] Address [address] [place] [address]. [place] [address] Care Team Providers Care Electroencephalograph Technologist Name Role Phone Jovany Gonzalez MD Unavailable CrissyStaci jeong NP Unavailable Reanna Smith RD Unavailable Roshni Nascimento RN Unavailable Unavailable Kiet Swain MD Unavailable [phone] Winsome Pike APRN ASSISTANT BOILER OPERATOR Unavailable [phone] Tori HinesSW Unavailable Miranda Queen [facility] Unavailable Unavailable Marisel Armando MD Unavailable Marisel Armando MD Unavailable Wesley Barrett MD Unavailable [phone] Dyan Fuentes MD Primary Care Provider [phone] Dyan Fuentes MD Unavailable [phone] Katiana Read MD Unavailable [phone] Meme Singleton PhD Unavailable [phone] Deena Garza SIZE WORKER ASSISTANT BOILER OPERATOR Unavailable [phone] Mary Del Cid CLINICAL BIOCHEMIST Unavailable Elham Stack [facility] Unavailable [phone] Emerita Potter Alisha [facility] Unavailable [phone] Mary Del Cid NP Unavailable [phone] Michelle Guzman DPM, Podiatry /Foot and Ankle Surgery Unavailable Dyan Fuentes MD Unavailable [phone] Mary Del Cid NP Unavailable [phone] Aubrey Jones MD Unavailable [phone] Blanquita Morales Unavailable Unavailable Aubrey Jones MD Unavailable [phone] Encounter Details Date Type Department Care Team (Late st Contact Info) Description 10/19/2022 MyC Medical Advice [address] [address] Elham Stack, [facility] [address] [place] [address] Social History Tobacco Use Types Packs/Day Years [...] often do you attend chur ch or islam services? 1 to 4 times per year [...] Answer Date Recorded PHQ-2 Score 0 06/14/2022 [facility] - Occupational Stress [...] st Contact Info) Description 08/18/2023 3:00 PM COAL GRADER Office Visit [facility] [address] [place] [address] Katiana Read MD [address] [place] [address] documented as of this encounter Visit Diagnoses Not on filedocumented in this encounter Additional Health Concerns Infection Onset Date Last Indicated Resolved Time C-difficile 10/15/2022 10/27/2022 11/26/2022 11:4 0 PM CDT Rule Out C-difficile 10/26/2022 10/27/2022 023 2:14 AM CDT Rule Out C-difficile 12/05/2022 12/05/2022 023 9:44 AM CDT Assessment Noted Time PHQ-9 Depression Total Score: 13 022 3:28 PM COAL GRADER documented as of this encounter Care Teams Electroencephalograph Technologist Relationship Specialty [place] [address] [place] [address] PCP - General Family Medicine 05/18/22 Jovany Gonzalez MD [facility] [address] [facility] [address] [place], [place] [address] Orthopedics 02/15/17 Staci Woodward, CLINICAL BIOCHEMIST [place] [address] [place], [place] [phone] Nurse Practitioner Nurse Practitioner Psych/Mental Health 05/10/17 Reanna Smith, RD [place] [address] [place], [place] [phone] Roof Bolting Coal Miner Dietitian, Registered 07/25/19 Roshni Nascimento, RN Personal Advocate & Liaison (PAL) Family Medicine 08/18/20 Kiet Swain MD [address] [place] [address] [phone] Referring Physician Psychiatry 09/19/20 Winsome Pike APRN ASSISTANT BOILER OPERATOR [address] [place] [address] Nurse Practitioner Psychiatry 09/19/20 Tori Hines, [facility] [address] [place] [phone] Head Of Integrated Media Head Of Integrated Media - Clinical 09/19/20 Miranda Queen [facility] [address] [place] [address] Pharmacist Pharmacist 11/12/20 Marisel Armando MD [address] [place] [phone] Gastroenterology 02/05/21 Marisel Aramndo MD [address] [place] [address] Assigned Gastroenterology Provider 03/08/21 12/24/22 Wesley Barrett MD [address] [facility] [address] [place] [address] Assigned Neuroscience Provider 05/10/21 [place] [address] [place] [address] Assigned PCP 05/15/22 Katiana Read MD [address] [place], [place] [address] Assigned Endocrinology Provider 06/19/22 [place] [address] [place] [id number] Assigned Behavioral Health Provider 07/03/22 12/31/22 Deena Garza APRN ASSISTANT BOILER OPERATOR [address] [place] [address] Assigned Pain Medication Provider 07/19/22 10/29/22 Mary Del Cid, [place] [address] [place] [address] Nurse Practitioner Nurse Practitioner 10/18/22 Elham Stack, [facility] [address] [place] [address] Pharmacist Pharmacist 10/19/22 Emerita Potter, [facility] Clinic Columnist Head Of Integrated Media - Clinical 10/29/22 11/02/22 [place] [address] [address] [place] [address] Assigned Pain Medication Provider 10/30/22 12/03/22 Michelle Guzman, DPM, Podiatry/Foot and Ankle Surgery [address] [place] [address] Assigned Musculoskeletal Provider 10/16/22 04/08/23 [place] [address] [place] [address] Assigned Pain Medication Provider 12/04/22 04/01/23 [place] [address] [address] [place] [address] Nurse Practitioner Nurse Practitioner 01/17/23 01/17/23 Aubrey Jones MD [address] [place] [address] Cardiovascular Disease 03/28/23 Blanquita Morales Roof Bolting Coal Miner Diabetes Education 04/25/23 Aubrey Jones MD [address] [place] [address] Assigned Heart and Vascular Provider 05/07/23 documented as of this encounter
--- OUTSIDE RECORDS SUMMARY | 2023-08-03 10:04 | XMS_ITS | Encounter Summary ---
Author Name Unknown Organization [facility] Address [address] [place] [address]. [place] [address] Care Team Providers Care Fundraising Director Name Role Phone Jovany Gonzalez MD Unavailable CrissyStaci jeong NP Unavailable [phone] Unavailable Roshni Nascimento RN Unavailable Unavailable Kiet Swain MD Unavailable [phone] Winsome Pike APRN OR SCRUB TECH Unavailable [phone] Tori HinesSW Unavailable Miranda Queen [facility] Unavailable Unavailable Marisel Armando MD Unavailable Marisel Armando MD Unavailable Wesley Barrett MD Unavailable [phone] Dyan Fuentes MD Primary Care Provider [phone] Dyan Fuentes MD Unavailable [phone] Katiana Read MD Unavailable [phone] Meme Singleton PhD Unavailable [phone] Deena Garza OB/GYN DOCTOR OR SCRUB TECH Unavailable [phone] Mary Del Cid SKI BINDING FITTER AND REPAIRER Unavailable Elham Stack [facility] Unavailable Michelle Guzman DPM, Podiatry /Foot and Ankle Surgery Unavailable Reason for Visit * Reason Onset Date Comments Outreach 10/18/2022 IP follow up Encounter Details Date Type Department Care Team (Late st Contact Info) Description 10/18/2022 Telephone [facility] [address] [place] [address] [place] [address] [place] [address] Outreach (IP follow up ) Social History Tobacco Use [...] often do you attend chur ch or restoration services? 1 to 4 times per year 10/16/2021 Do you belong to any clubs o r organizations such as baptist groups, unions, fraternal or athletic groups, or [...] Answer Date Recorded PHQ-2 Score 0 06/14/2022 [facility] - Occupational [...] Telephone Encounter - Roshni Nascimento RN - 10/19/2022 10:28 AM CDT Pt called back doing well on antibiotic and was also sent home with probiotic. OVIDIO for visit next week. She has no further questions or concerns today Roshni Nascimento RN * Telephone Encounter - Roshni Nascimento RN - 10/19/2022 8:08 AM CDT LM for call back pt has appt 10/25 with provider Roshni Nascimento RN * Telephone Encounter - Roshni Nascimento RN - 10/18/2022 11:09 AM CDT LM for call back Roshni Nascimento RN documented in this encounter Plan of Treatment Upcoming Encounters Date Type Department Care Team (Late st Contact Info) Description 08/18/2023 3:00 PM LINE SERVER Office Visit [facility] [address] [place] [address] Katiana Read MD [address] [facility] [address] [place] [address] documented as of this encounter Visit Diagnoses Not on filedocumented in this encounter Additional Health Concerns Infection Onset Date Last Indicated Resolved Time C-difficile 10/15/2022 10/27/2022 11/26/2022 11:4 0 PM CDT Assessment Noted Time PHQ-9 Depression Total Score: 13 022 3:28 PM LINE SERVER documented as of this encounter Care Teams Fundraising Director Relationship Specialty [place] [address] [place] [address] PCP - General Family Medicine 05/18/22 Jovany Gonzalez MD [facility] [address] [facility] [address] [place], [place] [address] Orthopedics 02/15/17 Staci Woodward, SKI BINDING FITTER AND REPAIRER [place] [address] [place] [address] Nurse Practitioner Nurse Practitioner Psych/Mental Health 05/10/17 Reanna Smith, RD [facility] [address] [place], [place] [address] Road Oiling Truck Driver Dietitian, Registered 07/25/19 Roshni Nascimento, RN Personal Advocate & Liaison (PAL) Family Medicine 08/18/20 Kiet Swain MD [address] [place], [place] [id number] [place], [place] [address] Referring Physician Psychiatry 09/19/20 Winsome Pike APRN OR SCRUB TECH [address] [place] [address] Nurse Practitioner Psychiatry 09/19/20 Tori Hines, [facility] [address] [place] [address] Garment Cutter Garment Cutter - Clinical 09/19/[address] [facility] [address] [place] [address] Pharmacist Pharmacist 11/12/20 Marisel Armando MD [address] [place] [address] Gastroenterology 02/05/21 Marisel Armando MD [address] [place] [address] Assigned Gastroenterology Provider 03/08/21 12/24/22 Wesley Barrett MD [address] [place] [address] Assigned Neuroscience Provider 05/10/21 [place] [address] [place] [address] Assigned PCP 05/15/22 Katiana Read MD [address] [place] [address] Assigned Endocrinology Provider 06/19/22 [place] PhD [address] [place] [address] Assigned Behavioral Health Provider 07/03/22 12/31/22 Deena Garza APRN OR SCRUB TECH [address] [place] [address]37 Assigned Pain Medication Provider 07/19/22 10/29/22 [place] [address] [place] [address] Nurse Practitioner Nurse Practitioner 10/18/22 Elham Stack, [facility] [address] [place] [address] Pharmacist Pharmacist 10/19/22 Michelle Guzman DPM, Podiatry/Foot and Ankle Surgery [address] [place] [address] [place] [address] Assigned Musculoskeletal Provider 10/16/22 04/08/23 documented as of this encounter
--- OUTSIDE RECORDS SUMMARY | 2023-08-03 10:05 | XMS_ITS | Encounter Summary ---
Author Name Unknown Organization [facility] Address [address] [place] [address]. [place] [address] Care Team Providers Care Small Brake Form Operator Name Role Phone Jovany Gonzalez MD Unavailable CrissyStaci jeong RFID ANALYST Unavailable [phone] Unavailable Roshni Nascimento RN Unavailable Unavailable Kiet Swain MD Unavailable [phone] Winsome Pike APRN ULTRASOUND MANAGER Unavailable [phone] Tori Hines [facility] Unavailable Miranda Queen [facility] Unavailable Unavailable Marisel Armando MD Unavailable Marisel Armando MD Unavailable Wesley Barrett MD Unavailable [phone] Charles Jaramillo PA-C Unavailable [phone] Dyan Fuentes MD Primary Care Provider [phone] Dyan Fuentes MD Unavailable [phone] Katiana Read MD Unavailable [phone] Meme Singleton PhD Unavailable [phone] Deena Garza QUALITY ENGINEERING MANAGER ULTRASOUND MANAGER Unavailable [phone] Mary Del Cid NP Unavailable + [phone] Elham Stack [facility] Unavailable [phone] [place], Emerita Alisha [facility] Unavailable [phone] Mary Del Cid NP Unavailable [phone] Michelle Guzman DPM, Podiatry /Foot and Ankle Surgery Unavailable Dyan Fuentes MD Unavailable [phone] Mary Del Cid NP Unavailable + [phone] Aubrey Jones MD Unavailable [phone] Blanquita Morales Unavailable Unavailable Aubrey Jones MD Unavailable [phone] Encounter Details Date Type Department Care Team (Late st Contact Info) Description 10/14/2022 [facility] Medical Advice [address] [address] Roshni Nascimento, RN Social History Tobacco [...] often do you attend chur ch or yarsani services? 1 to 4 times per year 10/16/2021 Do you belong to any clubs o r organizations such as caodaism groups, unions, fraternal or athletic groups, or [...] Answer Date Recorded PHQ-2 Score 0 06/14/2022 [facility] - Occupational Stress Questionnaire Answer [...] place to sleep or slept in a long term (including now)? No 10/16/2021 Education Answer Date [...] suspected to have Coronavirus/COVID-19? No / Unsure 10/14/2022 8:52 PM CDT documented as of this encounter Plan of Treatment Upcoming Encounters Date Type Department Care Team (Late st Contact Info) Description 08/18/2023 3:00 PM MARZIPAN MAKER Office Visit [facility] [address] [facility] [address] [place] [address] Katiana Read MD [address] [place] [address] documented as of this encounter Visit Diagnoses Not on filedocumented in this encounter Additional Health Concerns Infection Onset Date Last Indicated Resolved Time Rule Out C-difficile 10/14/2022 10/15/2022 023 12:33 AM CDT Rule Out C-difficile 10/15/2022 10/15/2022 023 5:39 AM CDT C-difficile 10/15/2022 10/27/2022 11/26/2022 11:4 0 PM CDT Rule Out C-difficile 10/26/2022 10/27/2022 023 2:14 AM CDT Rule Out C-difficile 12/05/2022 12/05/2022 023 9:44 AM CDT Assessment Noted Time PHQ-9 Depression Total Score: 13 022 3:28 PM MARZIPAN MAKER documented as of this encounter Care Teams Small Brake Form Operator Relationship Specialty [place] [address] [place] [address] PCP - General Family Medicine 05/18/22 Jovany Gonzalez MD [facility] [address] [facility] [address] [place], [place] [address] Orthopedics 02/15/17 Staci Woodward, RFID ANALYST [place] [address] [place], [place] [id number] Nurse Practitioner Nurse Practitioner Psych/Mental Health 05/10/17 Reanna Smith, RD [facility] [address] [place], [place] [address] Gas Worker Dietitian, Registered 07/25/19 Roshni Nascimento, RN Personal Advocate & Liaison (PAL) Family Medicine 08/18/20 Kiet Swain MD [address] [place] [id number] Referring Physician Psychiatry 09/19/20 Winsome Pike APRN ULTRASOUND MANAGER [facility] [place] [address] [address] Nurse Practitioner Psychiatry 09/19/20 Tori Hines, [facility] [address] [place] [address] Steel Unloader Steel Unloader - Clinical 09/19/20 Miranda Queen [facility] [address] [place] [address] Pharmacist Pharmacist 11/12/20 Marisel Armando MD [address] [place] [address] Gastroenterology 02/05/21 Marisel Armando MD [address] [place] [address] Assigned Gastroenterology Provider 03/08/21 12/24/22 Wesley Barrett MD [address] [facility] 96 [place] [address] Assigned Neuroscience Provider 05/10/21 Charles Jaramillo PA-C [address] [facility] [address] [place], [place] [address] Assigned Musculoskeletal Provider 04/26/21 10/15/22 [place] [address] [place] [address] Assigned PCP 05/15/22 Katiana Read MD [address] [facility] [address] [place], [place] [address] Assigned Endocrinology Provider 06/19/22 Meme Singleton, PhD [address] [place] [address] Assigned Behavioral Health Provider 07/03/22 12/31/22 Deena Garza APRN ULTRASOUND MANAGER [address] [place] [address] Assigned Pain Medication Provider 07/19/22 10/29/22 Mary Del Cid, RFID ANALYST [address] [place] [address] Nurse Practitioner Nurse Practitioner 10/18/22 Elham Stack, [facility] [address] [place] [address] Pharmacist Pharmacist 10/19/22 Emerita Potter, [facility] Clinic Juice Bar Team Member Steel Unloader - Clinical 10/29/22 11/02/22 [place] [address] [place] [address] Assigned Pain Medication Provider 10/30/22 12/03/22 Michelle Guzman, DPM, Podiatry/Foot and Ankle Surgery [address] [place] [address] Assigned Musculoskeletal Provider 10/16/22 04/08/23 [place] [address] [place] [address] Assigned Pain Medication Provider 12/04/22 04/01/23 [place] [address] [place] [address] Nurse Practitioner Nurse Practitioner 01/17/23 01/17/23 Aubrey Jones MD [address] [place] [address] Cardiovascular Disease 03/28/23 Blanquita Morales Gas Worker Diabetes Education 04/25/23 Aubrey Jones MD [address] [place] [address] Assigned Heart and Vascular Provider 05/07/23 documented as of this encounter
--- OUTSIDE RECORDS SUMMARY | 2023-08-03 10:05 | XMS_ITS | Encounter Summary ---
Author Name Unknown Organization [facility] Address [address] [place] [address]. [place] [address] Care Team Providers Care Groundskeeper Name Role Phone Jovany Gonzalez MD Unavailable CrissyStaci jeong REFRACTORY MANAGER Unavailable [phone] Unavailable Roshni Nascimento RN Unavailable Unavailable Kiet Swain MD Unavailable [phone] Winsome Pike APRN HEALTH CARE / MEDICAL JOB TITLES Unavailable [phone] Tori Hines [facility] Unavailable Miranda Queen [facility] Unavailable Unavailable Marisel Armando MD Unavailable Marisel Armando MD Unavailable Wesley Barrett MD Unavailable [phone] Charles Jaramillo PA-C Unavailable [phone] Dyan Fuentes MD Primary Care Provider [phone] Dyan Fuentes MD Unavailable [phone] Katiana Read MD Unavailable [phone] Meme Singleton PhD Unavailable [phone] Deena Garza COMPLAINT MANAGER HEALTH CARE / MEDICAL JOB TITLES Unavailable [phone] Encounter Details Date Type Department Care Team (Latest Contact Info) Description 10/14/2022 Travel Social History Tobacco Use Types Packs/Day [...] How often do you attend chur or anglican services? 1 to 4 times per year [...] Answer Date Recorded PHQ-2 Score 0 06/14/2022 [facility] [place] - Occupational Stress [...] Contact Info) Description 08/18/2023 3:00 PM SENIOR QC TECHNICIAN Office Visit [facility] [address] [place] [phone] Katiana Read MD [address] [place], [place] [address] documented as of this encounter Visit Diagnoses Not on filedocumented in this encounter Additional Health Concerns Infection Onset Date Last Indicated Resolved Time Rule Out C-difficile 10/14/2022 10/15/2022 023 12:33 AM CDT Assessment Noted Time PHQ-9 Depression Total Score: 13 022 3:28 PM SENIOR QC TECHNICIAN documented as of this encounter Care Teams Groundskeeper Relationship Specialty [place] [address] [place] [address] PCP - General Family Medicine 05/18/22 Jovany Gonzalez MD [facility] [address] [facility] [address] [place] [address] Orthopedics 02/15/17 Staci Woodward REFRACTORY MANAGER [place] [address] [place], [place] [address] Nurse Practitioner Nurse Practitioner Psych/Mental Health 05/10/17 Reanna Smith, [place] [address] [place] [address] Pipe Foreman Dietitian, Registered 07/25/19 Roshni Nascimento, RN Personal Advocate & Liaison (PAL) Family Medicine 08/18/20 Kiet Swain MD [address] [facility] [address] [place] [address] Referring Physician Psychiatry 09/19/20 Winsome Pike APRN HEALTH CARE / MEDICAL JOB TITLES [address] [place], [place] [address] Nurse Practitioner Psychiatry 09/19/20 Tori Hines [facility] [address] [place], [place] [address] Operations Specialist Operations Specialist - Clinical 09/19/20 Miranda Queen [facility] [address] [place] [address] Pharmacist Pharmacist 11/12/20 Marisel Armando MD [address] [place] [phone] Gastroenterology 02/05/21 Marisel Armando MD [address] [place] [id number] Assigned Gastroenterology Provider 03/08/21 12/24/22 Wesley Barrett MD [address] [facility] [address] [place], [place] [address] Assigned Neuroscience Provider 05/10/21 Charles Jaramillo PA-C [address] [facility] [address] [place], [place] [address] Assigned Musculoskeletal Provider 04/26/21 10/15/22 [place] [address] [address] [place], [place] [address] Assigned PCP 05/15/22 Katiana Read MD [address] [facility] [address] [place], [place] [address] Assigned Endocrinology Provider 06/19/22 [place] [address] [place] [address]229[address] Assigned Behavioral Health Provider 07/03/22 12/31/22 Deena Garza APRN HEALTH CARE / MEDICAL JOB TITLES [address] [place] [address] Assigned Pain Medication Provider 07/19/22 10/29/22 documented as of this encounter
--- OUTSIDE RECORDS SUMMARY | 2023-08-03 10:05 | XMS_ITS | Encounter Summary ---
Author Name Unknown Organization [facility] Address [address] [place] [address]. [place] [address] Care Team Providers Care Director Client Services Name Role Phone Jovany Gonzalez MD Unavailable [phone] CrissyStaci jeong SOFTWARE DEPLOYMENT ENGINEER Unavailable [phone] Unavailable [phone] Roshni Nascimento RN Unavailable Unavailable Kiet Swain MD Unavailable [phone] Winsome Pike APRN DAY GUARD Unavailable [phone] Tori Hines [facility] Unavailable Miranda Queen [facility] Unavailable Unavailable Marisel Armando MD Unavailable Marisel Armando MD Unavailable Wesley Barrett MD Unavailable [phone] Charles Jaramillo PA-C Unavailable [phone] Dyan Fuentes MD Primary Care Provider [phone] Dyan Fuentes MD Unavailable [phone] Katiana Read MD Unavailable [phone] Meme Singleton PhD Unavailable [phone] Deena Garza CLIPPER MACHINE DAY GUARD Unavailable [phone] Michelle Guzman DPM, Podiatry /Foot and Ankle Surgery Unavailable Reason for Referral * Med Therapy Management (Routine) - Pending Review Specialty Diagnoses / Procedures Referred By Jose R kelly Referred To Contact Pharmacist Diagnoses Nausea and vomiting, unspecified vomiting type Janine Del Rosario PA-C [address] [place] [address] Referral ID Status Reason Start Date Expiration Date V isits Requested Visits Authorized [id number] Pending Review 10/16/2022 10/16/2023 1 1 Scheduling Instructions MTM referral reason Total Score: 2 Patient had a hospital or ED visit in last 6 months and has more than 10 BRIM STRETCHER or Discharge medications Patient has 5 BRIM STRETCHER or Discharge Medications AND one of the [...] appointment. Reason for Visit * Reason Comments Nausea & Vomiting * Auth/Cert (Routine) Specialty Diagnoses / Procedures Referred By Jose R kelly Referred To Contact EMERGENCY MEDICINE Diagnoses Nausea and vomiting, unspecified vomiting type Pancolitis (H) Nausea and vomiting, unspecified vomiting type Emergency Dept [address] [place] [address] Referral ID Status Reason Start Date Expiration Date Visits Re quested Visits Authorized [id number] 1 1 Encounter Details Date Type Department Care Team (Late st Contact Info) Description 10/14/2022 8:48 PM CDT - 10/17/2022 1:36 PM CDT Hospital Encounter [facility] Observation Dept [address] [place] [address] Elina Reese PA-C [facility] [address] [place], [place] [address] Brant Herrera, DO [address] [place] [address] Ino Hernandez MD [facility] [address] [place], [place] [address] C. difficile colitis (Primary Dx); Pancolitis (H); Nausea and vomiting, unspecified vomiting type Discharge Disposition: Home or Self Care [...] often do you attend chur ch or protestant services? 1 to 4 times per year [...] Answer Date Recorded PHQ-2 Score 0 06/14/2022 [facility] - Occupational Stress Questionnaire Answer Date [...] Sign Reading Time Taken Comments Blood Pressure 144/89 10/17/2022 11:13 AM CDT Pulse 76 10/17/2022 11:13 AM CDT Temperature 36.9 ??C (98.4 ??F) 10/17/2022 11:13 AM C DT Respiratory Rate 18 10/17/2022 11:13 AM CDT Oxygen Saturation 96% 10/17/2022 11:13 AM CDT Inhaled Oxygen Concentration - - Weight 108.9 kg (240 lb) 10/14/2022 8:54 PM CDT Height 172.7 cm (5' 8) 10/15/2022 2:48 PM CDT Body Mass Index 36.49 10/14/2022 8:54 PM CDT documented in this encounter Discharge Summaries * Janine Del Rosario PA-C - 10/17/2022 12:45 PM CDT Images from the original note were not included. [facility] Discharge Summary Kaila Hernandez Date of : 1960 Age: [age] year old Date of Admission: 10/14/2022 Date of Discharge: 10/17/2022 1:36 PM Admitting Physician: Marlon Rodriguez MD Discharge Physician: Janine Del Rosario PA-C Discharging Service: Hospitalist Primary Provider: Dyan Fuentes Primary Care Physician Discharge Diagnoses/Problem Oriented Hospital Course (Providers): Kaila Hernandez was admitted on 10/14/2022 by Marlon Rodriguez MD and I would refer you to their history and physical. The following problems were addressed during her hospitalization: 1. Clostridium difficile infection Code Status: Full Code Brief Hospital Stay Summary Sent Home With Patient in AVS: Reason for your hospital stay You were admitted for concern of diarrhea and was found to have C.diff. You were seen by GI and they recommended 14 days of Vancomycin. Your diet was advanced and symptoms have improved. You are stable for discharge. Follow up with your PCP in 2 weeks as needed. Kaila Hernandez is a 61 year old female??w/extensive PMH including chronic pain on buprenorphine, COPD, GERD, anxiety, anemia, DMT2, C dif, pancreatitis who presents from home with multiple episodes of NV and diarrhea and CT e/o pancolitis. Cdiff toxin and antigen positive. Started on Vancomycin on 10/15 ?? C.diff colitis -reports 7 days of NV, diarrhea with worsening today including blood noted in stools. 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 Of note had colonoscopy in 2017 showing large amount of bile salts, is on colestid and fenofibrate outpt -CT abdomen showing pancolitis.?? -Stool for C.diff toxin B PCR and C.diff GDH antigen positive. -Started on Vancomyin 125 mg po qid on 10/15 with probiotic, she will be discharged wetih 14 days total of Vanco ?? Lactic acidosis - resolved -suspect from NV, diarrhea. Do - Resume esn't appear clinically or radio graphically to have any bowel ischemia and not septic appearing although ischemic colitis possible -s/p 1L IVF in ED, cont??IV fluid resuscitation with resolulation ?? HX chronic pain on buprenorphine Medication seeking behaviors -continue??home buprenorphine, asking for IV dilauded and did get some in ED -Has increased abdominal pain from pancolitis. Did short course of prn dilaudid for pain control - Discontinued IV pain meds 10/16 as we are advancing diet, PRN oxycodone available ?? HX DMT2, pancreatitis, GERD, anxiety, anemia, HTN -Advance diet today, CLD--> ADAT - OPn Baslagar BRIM STRETCHER, will resume lantus at 5u tonight then titrate up as po intake improves -resume home metoprolol, statin, , norvasc ?? Hypokalemia/Hypomagnesemia - Resume BRIM STRETCHER Potassium - Replace via electrolyte protocol ?? Important Results: Recent Labs Lab 10/16/22 0706 10/15/22 07510/14/22 210 WBC 3.5* 4.4 3.8* HGB 11.3* 13.1 14.4 HCT 34.9* 39.4 42.6 MCV 95 92 92 PLT 84* 125* 146* Recent Labs Lab 10/17/22 1140 10/17/22 0731 10/17/22 0556 10/17/22 0310 10/16/22 2255 10/16/22 2131 10/16/22 1724 10/16/22 1539 10/16/22 0854 10/16/22 0706 10/15/22 0854 10/15/22 0753 10/15/22 0112 10/14/22 2104 NA -- -- -- -- -- -- -- -- -- 140 -- 137 -- 138 POTASSIUM -- -- 3.9 -- -- 3.8 -- 3.3* -- 3.1* -- 3.6 -- 3.8 CHLORIDE -- -- -- -- -- -- -- -- -- 104 -- 102 -- 98 CO2 -- -- -- -- -- -- -- -- -- 23 -- 21* -- 19* ANIONGAP -- -- -- -- -- -- -- -- -- 13 -- 14 -- 21* GLC 202* 104* -- 137* < > -- < > -- < > 152* < > 180* < > 171* BUN -- -- -- -- -- -- -- -- -- 4.0* -- 7.5* -- 8.9 CR -- -- -- -- -- -- -- -- -- 0.89 -- 0.86 -- 0.88 GFRESTIMATED -- -- -- -- -- -- -- -- -- 73 -- 76 -- 74 ALISA -- -- -- -- -- -- -- -- -- 8.0* -- 7.9* -- 8.4* < > = values in this interval not displayed. 7-Day Micro Results Collected Updated Procedure Result Status 10/15/2022 0050 10/15/2022 1727 Enteric Bacteria and Virus Panel by DOMINICK Stool [[id number]] (Abnormal) Stool from Per Rectum Final result Component Value Campylobacter group Invalid Test results not interpretable. Test credited. Consider submitting a new specimen for repeat testing. Contact the Laboratory if there are questions. Salmonella species Invalid Test results not interpretable. Test credited. Consider submitting a new specimen for repeat testing. Contact the Laboratory if there are questions. Shigella species Invalid Test results not interpretable. Test credited. Consider submitting a new specimen for repeat testing. Contact the Laboratory if there are questions. Vibrio group Invalid Test results not interpretable. Test credited. Consider submitting a new specimen for repeat testing. Contact the Laboratory if there are questions. Rotavirus Invalid Test results not interpretable. Test credited. Consider submitting a new specimen for repeat testing. Contact the Laboratory if there are questions. Shiga toxin 1 gene Invalid Test results not interpretable. Test credited. Consider submitting a new specimen for repeat testing. Contact the Laboratory if there are questions. Shiga toxin 2 gene Invalid Test results not interpretable. Test credited. Consider submitting a new specimen for repeat testing. Contact the Laboratory if there are questions. Norovirus I and II Invalid Test results not interpretable. Test credited. Consider submitting a new specimen for repeat testing. Contact the Laboratory if there are questions. Yersinia enterocolitica Invalid Test results not interpretable. Test credited. Consider submitting a new specimen for repeat testing. Contact the Laboratory if there are questions. 10/15/2022 0050 10/15/2022 0539 C. difficile Toxin B PCR with reflex to C. difficile Antigen and Toxins A/B EIA [[id number]] (Abnormal) Stool from Per Rectum Final result Component Value C Difficile Toxin B by PCR Positive Detection of C. difficile nucleic acid in [...] PCR result will receive reflex GDH/Toxin Immunoassay testing.Please interpret the PCR test result in conjunction with GDH/Toxin Immunoassay results and the clinical status of patient. 10/15/2022 0050 10/15/2022 0644 C. difficile Antigen and Toxins A/B by Enzyme Immunoassay [[id number]] (Abnormal) Stool from Per Rectum Final result Component Value C. difficile GDH Antigen Positive C. difficile Toxin Negative Recent Labs Lab 10/17/22 1140 10/17/22 0731 10/17/22 0310 10/16/22 2255 10/16/22 1724 GLC 202* 104* 137* 164* 144* Recent Labs Lab 10/16/22 0706 10/15/22 0753 10/14/22 2104 HGB 11.3* 13.1 14.4 Recent Labs Lab 10/14/22 2104 LIPASE 17 Pending Results: Unresulted Labs Ordered in the Past 30 Days of this Admission No orders found from 09/14/2022 to 10/15/2022. Discharge Instructions and Follow-Up: Follow-up Appointments Follow-up and recommended labs and tests Follow up with primary care provider, Dyan Fuentes, within 14 days for hospital follow- up. No follow up labs or test are needed. Discharge Disposition: Discharged to home Discharge Medications: Current Discharge Medication List START taking these medications Details lactobacillus rhamnosus, GG, (CULTURELL) capsule Take 1 capsule by mouth 2 times daily for 14 days Qty: 28 capsule, Refills: 0 Associated Diagnoses: C. difficile colitis vancomycin (VANCOCIN) 125 MG capsule Take 1 capsule (125 mg) by mouth 4 times daily for 14 days Qty: 56 capsule, Refills: 0 Associated Diagnoses: C. difficile colitis CONTINUE these medications which have NOT CHANGED [...] Refills: 3 Associated Diagnoses: Benign essential hypertension brexpiprazole (REXULTI) 2 MG tablet Take 2 [...] tablet, Refills: 0 Associated Diagnoses: Tobacco dependence chlorhexidine (PERIDEX) 0.12 % solution Take 15 mLs by mouth daily as needed clonazePAM (KLONOPIN) 1 MG tablet Take 1 mg by mouth 2 times daily colestipol (COLESTID) 1 g tablet Take 1 tablet by mouth 2 times daily Continuous Blood Gluc District Engineer (DEXCOM G6 UNDERGROUND ROOF BOLTER) ANITA USE DAILY Qty: 1 each, Refills: [...] long- term current use of insulin (H) cyanocobalamin (CYANOCOBALAMIN) 1000 MCG/ML injection INJECT 1 [...] (FEROSUL) 325 (65 Fe) MG tablet Take 2 tablets (650 mg) by mouth daily (with breakfast) Qty: 100 tablet, Refills: 1 Associated Diagnoses: Generalized muscle weakness; Hypokalemia; Tobacco dependence hydrOXYzine (ATARAX) 25 MG tablet TAKE 1 TABLET (25 MG) BY MOUTH EVERY 6 HOURS NEEDED FOR ANXIETY OR PAIN ADJUVANT. Qty: 24 tablet, Refills: 1 Comments: DX Code Needed . Associated Diagnoses: Anxiety insulin aspart (NOVOLOG FLEXPEN) 100 UNIT/ML pen [...] long- term current use of insulin (H) levothyroxine (SYNTHROID/LEVOTHROID) 175 MCG tablet Take 2 tablets (350 mcg) by mouth daily Qty: 180 tablet, Refills: 1 Associated Diagnoses: Postprocedural hypothyroidism Lidocaine (LIDOCARE) 4 % Patch Place 1 patch onto the skin every 24 hours To prevent lidocaine toxicity, patient should be patch free for 12 hrs daily. Qty: 10 patch, Refills: 0 Associated Diagnoses: Post-op pain menthol (ICY HOT) 5 % PTCH Apply 1 patch topically every 8 hours as needed for muscle soreness Qty: 10 patch, Refills: 0 Associated Diagnoses: Post-op pain methocarbamol (ROBAXIN) 500 MG tablet Take 1-2 tablets (500-1,000 mg) by mouth 4 times daily as needed for muscle spasms Qty: 150 tablet, Refills: 1 Associated Diagnoses: Muscle spasm metoprolol tartrate (LOPRESSOR) 25 MG tablet TAKE 1 TABLET BY MOUTH TWICE A DAY Qty: 180 tablet, Refills: 3 Associated Diagnoses: Benign essential hypertension naloxone (NARCAN) nasal spray Hanahan 1 spray (4 mg) into one nostril alternating nostrils as needed Qty: 0.2 mL, Refills: 0 Associated Diagnoses: At risk for substance overdose nitroGLYcerin (NITROSTAT) 0.[address] 1 tablet (0.4 mg) under the tongue every 5minutes as needed for chest pain Qty: 25 tablet, Refills: 0 Associated Diagnoses: Chest pain, unspecified type nystatin (MYCOSTATIN) 944680 UNIT/GM external ointment Apply topically 2 times daily Qty: 30 g, Refills: 1 Associated Diagnoses: Skin rash omega-3 acid ethyl esters (LOVAZA) 1 g [...] weakness risperiDONE (RISPERDAL M-TABS) 0.5 MG ODT DISSOLVE 1 TABLET ON TONGUE EVERY DAY IN THE MORNING, AND1/2 TAB AT BEDTIME Qty: 135 tablet, Refills: 1 Associated Diagnoses: Moderate episode of recurrent major depressive disorder (H); PTSD (post-traumatic stress disorder) rosuvastatin (CRESTOR) 40 MG tablet Take 1 tablet (40 mg) by mouth daily Qty: 90 tablet, Refills: 3 Associated Diagnoses: Hypertriglyceridemia; Hyperlipidemia LDL goal <100 vitamin D3 (CHOLECALCIFEROL) 1.25 MG (17750 UT) capsule Take 50,000 Units by mouth every 7 days Mondays Qty: 100 capsule, Refills: 0 Associated Diagnoses: Vitamin D deficiency !! - Potential duplicate medications found. Please discuss with provider. Allergies: Allergies Allergen Reactions ??? Bees Anaphylaxis ??? Levaquin [Levofloxacin Hemihydrate] Rash ??? Reglan [Metoclopramide Hcl] Hives ??? Droperidol ??? Nalbuphine Hcl ??? Phenergan [Promethazine] Other (See Comments) Patient reports she gets mean & jerky Consultations This Hospital Stay: Consultation during this admission received from gastroenterology Condition and Physical on Discharge: Discharge condition: Stable Vitals: Blood pressure (!) 144/89, pulse 76, temperature 98.4 ??F (36.9 ??C), temperature source Oral, resp. rate 18, height 1.727 m (5' 8), weight 108.9 kg (240 lb), SpO2 96 %, not currently . 240 lbs 0 oz GENERAL: Comfortable. PSYCH: pleasant, oriented, No acute distress. HEENT: PERRLA. Normal conjunctiva, normal hearing, nasal mucosa and Oropharynx are normal. NECK: Supple, no neck vein distention, adenopathy or bruits, normal thyroid. HEART: Normal S1, S2 with no murmur, no pericardial rub, gallops or S3 or S4. LUNGS: Clear to auscultation, normal Respiratory effort. No wheezing, rales or ronchi. ABDOMEN: Soft, no hepatosplenomegaly, normal bowel sounds. Non-tender, non distended. EXTREMITIES: No pedal edema, +2 pulses bilateral and equal. SKIN: Dry to touch, No rash, wound or ulcerations. NEUROLOGIC: CN 2-12 intact, BL 5/5 symmetric upper and lower extremity strength, sensation is intact with no focal deficits. Discharge Time: <30 mins Image Results From This Hospital Stay (For Non-EPIC Providers): Results for orders placed or performed during the hospital encounter of 10/14/22 CT Abdomen Pelvis w Contrast Narrative EXAM: CT ABDOMEN PELVIS W CONTRAST LOCATION: [facility] DATE/TIME: 10/14/2022 10:45 PM INDICATION: Generalized abdominal [...] results can be found in Results Review. documented in this encounter Medications at Time [...] 2 times daily 0 Continuous Blood Gluc District Engineer (DEXCOM G6 UNDERGROUND ROOF BOLTER) DEVIIndications:Type 2 diabetes mellitus without complication, with [...] (NARCAN) nasal sprayIndications:At risk for substance overdose Hanahan 1 spray (4 mg) into one nostril alternating nostrils as needed 0.2 mL 0 11/19/2016 11/11/2022 nystatin (MYCOSTATIN) 696150 UNIT/GM external ointmentIndications:S kin rash Apply topically [...] major depressive disorder (H),PTSD (post-traumatic stress disorder) DISSOLVE 1 TABLET ON TONGUE EVERY DAY IN THE MORNING, AND 1/2 TAB AT BEDTIME 135 tablet 1 09/23/2021 10/25/2022 rosuvastatin (CRESTOR) 40 MG tabletIndications:Hyp ertriglyceridemia,Hyp erlipidemia LDL goal <100 Take 1 tablet (40 mg) by mouth daily 90 tablet 3 06/14/2022 05/12/2023 vancomycin (VANCOCIN) 125 MG capsuleIndications:Cl ostridioides difficile Take 1 capsule (125 mg) by mouth 4 times daily for 14 days 56 capsule 0 10/17/2022 10/28/2022 vitamin D3 (CHOLECALCIFEROL) 1.25 MG (44673 UT) capsuleIndications:Vi tamin D deficiency Take 50,000 Units by mouth every 7 days Mondays 100 capsule 0 05/06/2021 10/26/2022 documented as of this encounter Progress Notes * Robin Mcgill APRN CNP - 10/16/2022 10:37 PM CDT Cross Cover Note 10/16/2022 1900 Notified by RN of chest pressure/anxiety. VSS BP 120/70 (BP Location: Left arm, Patient Position: Semi-Diop's, Cuff Size: Adult Regular) Pulse 75 Temp 98.3 ??F (36.8 ??C) (Oral) Resp 18 Ht 1.727 m (5' 8) Wt 108.9 kg (240 lb) LMP (LMP Unknown) SpO2 95% BMI 36.49 kg/m?? EKG obtained and shows SR with no acute ischemic changes. At the time I was with another criticallyill patient. When I checked on her at 2029 -- she was resting comfortably without any complaints. Electrolytes being replaced. Continue plan of care as outlined by my colleague earlier today. Robin Mcgill APRN CNP * Roger Wetzel RN - 10/16/2022 7:42 PM CDT PRIMARY DIAGNOSIS: Freq Stooling OUTPATIENT/OBSERVATION GOALS TO BE MET BEFORE DISCHARGE: 1. ADLs back to baseline: No 2. Activity and level of assistance: Up with standby assistance. 3. Pain status: Improved-controlled with oral pain medications. 4. Return to near baseline physical activity: No [employer] Pinner Nurse Safe discharge environment identified: Yes Barriers to discharge: Yes Entered by: Roger Wetzel RN 10/16/2022 7:42 PM VSS, pt on room air. Pt electrolyte replacement initiated for k, mg. Pt reported palpitations, EKG ordered WNL SR. Tele ordered and applied. IV running NS at 125 ml/hr. Received PRN IV diluadid x 1 and oral oxycodone, robaxin x 1 which were effective. Tolerating full liquid diet. Discharge pending. Please review provider order for any additional goals. Nurse to notify provider when observation goals have been met and patient is ready for discharge. * Janine Del Rosario PA-C - 10/16/2022 5:34 PM CDT [facility] Hospitalist Progress Note Janine Del Rosario PA-C 10/16/2022 Reason for Stay (Diagnosis): cdiff colitis Assessment and Plan: Kaila Hernandez is a 61 year old female??w/extensive PMH including chronic pain on buprenorphine, COPD, GERD, anxiety, anemia, DMT2, C dif, pancreatitis who presents from home with multiple episodes of NV and diarrhea and CT e/o pancolitis. Cdiff toxin and antigen positive. Started on Vancomycin on 10/15 ?? C.diff colitis -reports 7 days of NV, diarrhea with worsening today including blood noted in stools. 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 Of note had colonoscopy in 2017 showing large amount of bile salts, is on colestid and fenofibrate outpt -CT abdomen showing pancolitis. -Stool for C.diff toxin B PCR and C.diff GDH antigen positive. -Started on Vancomyin 125 mg po qid on 4/7 with probiotic -Will need outpatient follow up with GI C/o Dizziness - Pt c/o dizziness (some spinning sensation and imbalance) since admission - She states that she might have nystagmus - ON exam, no significant nystagmus noted. - Possible BPPV, nothing focal on exam to suggest CVA - Will place on scheduled meclizine and see how she does - If still symptomatic, will askl PT to eval and possible CT head Lactic acidosis - resolved -suspect from NV, diarrhea. Do - Resume esn't appear clinically or radio graphically to have any bowel ischemia and not septic appearing although ischemic colitis possible -s/p 1L IVF in ED, cont IV fluid resuscitation ?? HX chronic pain on buprenorphine Medication seeking behaviors -continue home buprenorphine, asking for IV dilauded and did get some in ED -Has increased abdominal pain from pancolitis. Did short course of prn dilaudid for pain control - Discontinued IV pain meds 10/16 as we are advancing diet, PRN oxycodone available ?? HX DMT2, pancreatitis, GERD, anxiety, anemia, HTN -Advance diet today, CLD--> ADAT - OPn Baslagar BRIM STRETCHER, will resume lantus at 5u tonight then titrate up as po intake improves -resume home metoprolol, statin, , norvasc Hypokalemia/Hypomagnesemia - Resume BRIM STRETCHER Potassium - Replace via electrolyte protocol Diet:?CLD then ADAT Mello Catheter:??Not present Lines:??None? Cardiac Monitoring:??None Code Status:?full code ?? DVT Prophylaxis: Pneumatic Compression Devices, start Lovenox Code Status: Full Code ?? Disposition: Expected discharge: anticipate more than 2 nights of hospital course Interval History (Subjective): Still with active loose stool, 4 loose stools already today. No fever, abd pain better. O/w no complaints. Want to trial food. Physical Exam: Last Vital Signs: BP 131/74 (BP Location: Right arm) Pulse 75 Temp 98.5 ??F (36.9 ??C) (Oral) Resp 18 Ht 1.727 m (5' 8) Wt 108.9 kg (240 lb) LMP (LMP Unknown) SpO2 98% BMI 36.49 kg/m?? Intake/Output Summary (Last 24 hours) at 10/16/2022 1747 Last data filed at 10/16/2022 1101 Gross per 24 hour Intake 840 ml Output 570 ml Net 270 ml I/O last 3 completed shifts: In: 840 [P.O.:840] Out: 570 [Urine:570] Constitutional: Awake, alert, cooperative, no apparent distress Respiratory: Clear to auscultation bilaterally, no crackles or wheezing Cardiovascular: Regular rate and rhythm, normal S1 and S2, and no murmur noted Abdomen: Normal bowel sounds, soft, non-distended, non-tender Skin: No rashes, no cyanosis, dry to touch Neuro: Alert and oriented x3, no weakness, numbness, memory loss Extremities: No edema, normal range of motion Other(s): All other systems: Negative Medications: All current medications were reviewed with changes reflected in problem list. Data: All new lab and imaging data was reviewed. Labs: Lab Results Component Value Date NA 140 10/16/2022 NA 137 10/15/2022 NA 138 10/14/2022 NA 141 01/18/2021 NA 139 01/17/2021 NA 136 01/16/2021 Lab Results Component Value Date CHLORIDE 104 10/16/2022 CHLORIDE 102 10/15/2022 CHLORIDE 98 10/14/2022 CHLORIDE 104 11/16/2021 CHLORIDE 103 11/15/2021 CHLORIDE 107 11/13/2021 CHLORIDE 109 01/18/2021 CHLORIDE 105 01/17/2021 CHLORIDE 100 01/16/2021 Lab Results Component Value Date BUN 4.0 10/16/2022 BUN 7.5 10/15/2022 BUN 8.9 10/14/2022 BUN 16 11/16/2021 BUN 11 11/15/2021 BUN 13 11/13/2021 BUN 8 01/18/2021 BUN 10 01/17/2021 BUN 13 01/16/2021 Lab Results Component Value Date POTASSIUM 3.3 10/16/2022 POTASSIUM 3.1 10/16/2022 POTASSIUM 3.6 10/15/2022 POTASSIUM 4.8 11/16/2021 POTASSIUM 4.0 11/15/2021 POTASSIUM 4.5 11/13/2021 POTASSIUM 3.9 01/18/2021 POTASSIUM 4.3 01/17/2021 POTASSIUM 3.4 01/17/2021 Lab Results Component Value Date CO2 23 10/16/2022 CO2 21 10/15/2022 CO2 19 10/14/2022 CO2 29 11/16/2021 CO2 31 11/15/2021 CO2 26 11/13/2021 CO2 27 01/18/2021 CO2 31 01/17/2021 CO2 27 01/16/2021 Lab Results Component Value Date CR 0.89 10/16/2022 CR 0.86 10/15/2022 CR 0.88 10/14/2022 CR 0.74 01/18/2021 CR 0.81 01/17/2021 CR 0.76 01/16/2021 Recent Labs Lab 10/16/22 0706 10/15/22 0753 10/14/22 2104 WBC 3.5* 4.4 3.8* HGB 11.3* 13.1 14.4 HCT 34.9* 39.4 42.6 MCV 95 92 92 PLT 84* 125* 146* Imaging: Results for orders placed or performed during the hospital encounter of 10/14/22 CT Abdomen Pelvis w Contrast Narrative EXAM: CT ABDOMEN PELVIS W CONTRAST LOCATION: [facility] DATE/TIME: 10/14/2022 10:45 PM INDICATION: Generalized abdominal [...] results can be found in Results Review. Associated attestation - Marlon Rodriguez MD - 10/19/2022 2:52 PM CDT Physician Attestation I have reviewed [...] not personally see this patient today. * Riana Bynum - 10/16/2022 3:34 PM CDT Pt has a high URR score of 27%. No needs identified at this time. Please page SW if needs/concerns arise. Riana Bynum MACHINE MAINTENANCE REPAIRER, [facility] Inpatient Care Coordination [facility] [phone] * Luis Alfonso MD - 10/15/2022 1:45 PM CDT [facility] Hospitalist Progress Note Provider : Luis Alfonso MD, MD Date of Service (when I saw the patient): 10/15/2022 Assessment & Plan Kaila Hernandez is a 61 year old female w/extensive PMH including chronic pain on buprenorphine, COPD, GERD, anxiety, anemia, DMT2, C dif, pancreatitis who presents from home with multiple episodes of NV and diarrhea ?? NV, diarrhea, reported bloody stools, pancolitis Hx C dif -reports 7 days of NV, diarrhea with worsening today including blood noted in stools. 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 Of note had colonoscopy in 2017 showing large amount of bile salts, is on colestid and fenofibrate outpt -in ED FOBT negative and THANH without melena or blood but CT abdomen showing pancolitis. -Stool for C.diff toxin B PCR and C.diff GDH antigen positive. -Started on Vancomyin 125 mg po qid. Will need probiotic -Appreciate gastroenterology input -Will need outpatient follow up with GI ?? Lactic acidosis -suspect from NV, diarrhea. Doesn't appear clinically or radio graphically to have any bowel ischemia and not septic appearing although ischemic colitis possible -s/p 1L IVF in ED, cont IV fluid resuscitation HX chronic pain on buprenorphine Medication seeking behaviors -continue home buprenorphine, asking for IV dilauded and did get some in ED -Has increased abdominal pain from pancolitis. Will order short course of prn dilaudid for pain control ?? HX DMT2, pancreatitis, GERD, anxiety, anemia, HTN -NPO so hold home lantus, ISS for now -resume home metoprolol, statin, , norvasc ?? Diet: NPO DVT Prophylaxis: Pneumatic Compression Devices Mello Catheter: Not present Lines: None Cardiac Monitoring: None Code Status: full code DVT Prophylaxis: Pneumatic Compression Devices Code Status: Full Code Disposition: Expected discharge: anticipate more than 2 nights of hospital course Luis Alfonso MD Interval History Patient seen and examined. H&P reviewed. She stated that she has abdominal pain. She has nauseaand vomiting. Denies fever. -Data reviewed today: I reviewed all new labs and imaging results over the last 24 hours. I personally reviewed Physical Exam Temp: 99.4 ??F (37.4 ??C) Temp src: Oral BP: (!) 146/105 Pulse: 73 Resp: 11 SpO2: 96 % O2 Device: None (Room air) Vitals: 10/14/222053 Weight: 108.9 kg (240 lb) Vital Signs with Ranges Temp: [98.8 ??F (37.1 ??C)-99.4 ??F (37.4 ??C)] 99.4 ??F (37.4 ??C) Pulse: [73-101] 73 Resp: [6-16] 11 BP: (146-172)/(96-108) 146/105 SpO2: [91 %-100 %] 96 % No intake/output data recorded. GEN: Alert, oriented x 3, appears comfortable, NAD. HEENT: Normocephalic/atraumatic, no scleral icterus, no nasal discharge, mouth moist. CV: Regular rate and rhythm, no murmur or JVD. S1 + S2 noted, no S3 or S4. LUNGS: Clear to auscultation bilaterally without rales/rhonchi/wheezing/retractions. Symmetric chest rise on inhalation noted. ABD: Active bowel sounds, soft, non-tender/non-distended. No rebound/guarding/rigidity. EXT: No edema or cyanosis. Hands/feet warm to touch with good signs of peripheral perfusion. No joint synovitis noted. SKIN: Dry to touch, no exanthems noted in the visualized areas. NEURO: Symmetric muscle strength, sensation to touch grossly intact. No new focal deficits appreciated. Medications ??? sodium chloride 125 mL/hr at 10/15/22 0701 ??? amLODIPine 10 mg Oral Daily ??? buprenorphine HCl-naloxone HCl 1 Film Sublingual TID ??? calcium carbonate 600 mg Oral BID w/meals ??? desvenlafaxine 150 mg Oral Daily ??? fenofibrate 48 mg Oral Daily ??? [START ON 10/16/2022] ferrous sulfate 650 mg Oral Daily with breakfast ??? insulin aspart 1-7 Units Subcutaneous TID AC ??? insulin aspart 1-5 Units Subcutaneous At Bedtime ??? levothyroxine 350 mcg Oral Daily ??? metoprolol tartrate 25 mg Oral BID ??? [START ON 10/16/2022] risperiDONE 1 mg Oral QAM ??? vancomycin 125 mg Oral 4x Daily Data Recent Labs Lab 10/15/22 1130 10/15/22 0854 10/15/22 0753 10/15/22 0112 10/14/22 2104 WBC -- -- 4.4 -- 3.8* HGB -- -- 13.1 -- 14.4 MCV -- -- 92 -- 92 PLT -- -- 125* -- 146* NA -- -- 137 -- 138 POTASSIUM -- -- 3.6 -- 3.8 CHLORIDE -- -- 102 -- 98 CO2 -- -- 21* -- 19* BUN -- -- 7.5* -- 8.9 CR -- -- 0.86 -- 0.88 ANIONGAP -- -- 14 -- 21* ALISA -- -- 7.9* -- 8.4* GLC 200* 185* 180* < > 171* ALBUMIN -- -- 3.7 -- 4.0 PROTTOTAL -- -- 6.3* -- 6.8 BILITOTAL -- -- 0.6 -- 0.4 ALKPHOS -- -- 199* -- 245* ALT -- -- 20 -- 25 AST -- -- 44* -- 56* LIPASE -- -- -- -- 17 < > = values in this interval not displayed. Recent Results (from the past 24 hour(s)) CT Abdomen Pelvis w Contrast Narrative EXAM: CT ABDOMEN PELVIS W CONTRAST LOCATION: [facility] DATE/TIME: 10/14/2022 10:45 PM INDICATION: Generalized abdominal [...] obstruction. 2. Fatty infiltration of the liver. * Cindy Tobar RN - 10/15/2022 6:56 AM CDT Pt A&Ox4. Up with one assist to commode. On RA. Continues to have diarrhea. Stool sample obtained and awaiting results. Pt continues to complain of abdominal pain 7-02/17 despite oxycodone, ataraxand robaxin. Clarified with MD about normal saline rate. He directed to continue the 150ml/hr untilthe bag is done and then start NS at 125ml/hr. Had critical LA. Continues to have nausea. Compazineordered and given with little relief. Zofran given x 1. Pt continues to eat a lot of ice. Educated on eating too much. Gave her mouth swabs instead. BP (!) 156/96 Pulse 101 Temp 99.1 ??F (37.3 ??C) (Oral) Resp 14 Ht 1.727 m (5' 8) Wt 108.9 kg (240 lb) LMP (LMP Unknown) SpO2 96% BMI 36.49 kg/m?? documented in this encounter H&P Notes * Brant Herrera, - 10/14/2022 11:53 PM CDT [facility] History and Physical - Hospitalist Service Date of Admission: 10/14/2022 Assessment & Plan Kaila Edwin Rob Hernandez is a 61 year old female w/extensive PMH including chronic pain on buprenorphine, COPD, GERD, anxiety, anemia, DMT2, C dif, pancreatitis who presents from home with multiple episodes of NV and diarrhea NV, diarrhea, reported bloody stools, pancolitis Hx C dif -reports 7 days of NV, diarrhea with worsening today including blood noted in stools. 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 Of note had colonoscopy in 2017 showing large amount of bile salts, is on colestid and fenofibrate outpt -in ED FOBT negative and THANH without melena or blood but CT abdomen showing pancolitis. Suspected infectious but ischemic possible -check C dif and stool studies and will get blood cx -consult GI and keep NPO after midnight -hold home laxatives Lactic acidosis -suspect from NV, diarrhea. Doesn't appear clinically or radio graphically to have any bowel ischemia and not septic appearing although ischemic colitis possible -s/p 1L IVF in ED, cont at 125 and check q6 hours HX chronic pain on buprenorphine Medication seeking behaviors -resume home buprenorphine, asking for IV dilauded and did get some in ED -try to avoid narcotics until c dif ruled out HX DMT2, pancreatitis, GERD, anxiety, anemia, HTN -NPO so hold home lantus, ISS for now -resume home metoprolol, statin, , norvasc Diet: NPO DVT Prophylaxis: Pneumatic Compression Devices Mello Catheter: Not present Lines: None Cardiac Monitoring: None Code Status: full code Brant Herrera DO Hospitalist Service [facility] Securely message with [employer] (more info) Text page via [employer] Paging/Directory Chief Complaint Diarrhea, NV History of Present Illness Kaila Hernandez is a 61 year old female w/extensive PMH including chronic pain on buprenorphine, COPD, GERD, anxiety, anemia, DMT2, C dif, pancreatitis who presents from home with multiple episodes of NV and diarrhea. She reports having ongoing NV and diarrhea for about 7 days with associated chills but no fever. Today she thinks she had 10-15 episodes of diarrhea with blood noted in last BM and so called EMS. She denies any CP, sob, hematemesis, melena. In ED FOBT was negative and THANH was negative for blood. CT was done showing pancolitis. She does have hx of C dif and has had fecal transplant in past but denies any recent antibiotics use and appears last episode was years ago. WBC was 3.8 but afebrile. Lactic acid noted to be elevated at 5.7, received 1L bolus but BP is elevated in 150's. She is asking for a 'boat load of diluaded' despite getting multiple doses in ED Past Medical History Past Medical History: Diagnosis [...] ANKLE ARTHROSCOPY; Surgeon: Jovany Gonzalez MD; Location: [facility];Service: ??? BACK SURGERY Lumbar and cervical [...] FIBULAR FRACTURE; Surgeon: Jovany Gonzalez MD; Location: [facility] OR; Service: ??? rectocele and cystocel repairs ??? REMOVE HARDWARE LOWER EXTREMITY Right 12/13/2017 Procedure: REMOVAL OF SYNDESMOSIS SCREWS, SUHAS; Surgeon: Jovany Gonzalez MD; Location: [facility] Main OR; Service: ??? REPAIR RECTOCELE ??? TONSILLECTOMY ??? ZZC NONSPECIFIC PROCEDURE 06/2001 Colonoscopy - neg -- abstracted 12/26/01 Prior to Admission Medications Prior to Admission Medications Prescriptions Last Dose Informant Patient Reported? Taking? Continuous Blood Gluc District Engineer (DEXCOM G6 UNDERGROUND ROOF BOLTER) [facility] No No Sig: USE DAILY Continuous Blood Gluc Sensor (DEXCOM G6 SENSOR) [facility] No No Sig: USE 1 SENSOR EVERY 10 DAYS Continuous Blood Gluc Transmit (DEXCOM G6 TRANSMITTER) [facility] No No Sig: Change every 3 months [...] 1 tablet (10 mg) by mouth daily buprenorphine HCl-naloxone HCl (SUBOXONE) [...] 15 mLs by mouth daily as needed colestipol (COLESTID) 1 g tablet Pharmacy Yes [...] 1 pen needles daily or as directed. levothyroxine (SYNTHROID/LEVOTHROID) 175 MCG tablet No No [...] (NARCAN) nasal spray Pharmacy No No Sig: Hanahan 1 spray (4 mg) into one nostril alternating nostrils as needed nitroGLYcerin (NITROSTAT) 0.4 MG sublingual tablet Self No No Sig: Place 1 tablet (0.4 mg) under the tongue every 5 minutes as needed for chest pain nystatin (MYCOSTATIN) 438071 UNIT/GM external ointment No No Sig: Apply [...] 1 tablet (40 mg) by mouth daily polyethylene glycol (MIRALAX) 17 GM/Dose powder No No Sig: Take 17 g by mouth daily risperiDONE (RISPERDAL M-TABS) 0.5 MG ODT No No Sig: DISSOLVE 1 TABLET ON TONGUE EVERY DAY IN THE MORNING, AND 1/2 TAB AT BEDTIME Patient taking differently: DISSOLVE 1/2 TABLET ON TONGUE EVERY DAY IN THE MORNING, AND 1 TAB AT BEDTIME rosuvastatin (CRESTOR) 40 MG tablet No No Sig: Take 1 tablet (40 mg) by mouth daily vitamin D3 (CHOLECALCIFEROL) 1.25 MG (88040 UT) capsule Yes No Sig: Take 50,000 Units by mouth every 7 days Mondays Facility-Administered Medications: None Review of Systems The 10 point Review of Systems is negative other than noted in the HPI or here. Social History I have reviewed this patient's [...] use: No Comment: marijuana in high school Family History I have reviewed this patient's family history and updated it with pertinent information if needed. Family History Problem Relation Age of Onset ??? Colon Cancer Mother ??? Other - See Comments Father murdered ??? Liver Disease Father ??? Substance Abuse Father ??? Substance Abuse Sister ??? Substance Abuse Sister Allergies Allergies Allergen Reactions ??? Bees Anaphylaxis ??? Levaquin [Levofloxacin Hemihydrate] Rash ??? Reglan [Metoclopramide Hcl] Hives ??? Droperidol ??? Nalbuphine Hcl ??? Phenergan [Promethazine] Other (See Comments) Patient reports she gets mean & jerky Physical Exam Vital Signs: Temp: 98.8 ??F (37.1 ??C) Temp src: Temporal BP: (!) 151/102 Pulse: 80 Resp: 12 SpO2: 95 % Weight: 240 lbs 0 oz Constitutional: awake, alert and cooperative Eyes: pupils equal, round and reactive to light and conjunctiva normal ENT: normocepalic, without obvious abnormality, atramatic Respiratory: no increased work of breathing, good air exchange and clear to auscultation Cardiovascular: regular rate and rhythm, no murmur noted and no edema GI: hyperactive bowel sounds, soft, distended and mild tenderness to palpation on R side Skin: no bruising or bleeding Neurologic: alert, oriented, no focal deficits 55 MINUTES SPENT BY ME on the date of service doing chart review, history, exam, documentation & further activities per the note. Data PAST 24 HR DATA REVIEWED I have personally reviewed the following data over the past 24 hrs: 3.8 (L) \ 14.4 / 146 (L) 138 98 8.9 / 171 (H) 3.8 19 (L) 0.88 \ ALT: 25 AST: 56 (H) AP: 245 (H) TBILI: 0.4 ALB: 4.0 TOT PROTEIN: 6.8 LIPASE: 17 Procal: N/A CRP: N/A Lactic Acid: 5.7 (HH) Imaging results reviewed over the past 24 hrs: Recent Results (from the past 24 hour(s)) CT Abdomen Pelvis w Contrast Narrative EXAM: CT ABDOMEN PELVIS W CONTRAST LOCATION: [facility] DATE/TIME: 10/14/2022 10:45 PM INDICATION: Generalized abdominal [...] obstruction. 2. Fatty infiltration of the liver. documented in this encounter Consult Notes * Ozzie Michelle MD - 10/15/2022 12:12 PM CDTAssociated Order(s): GASTROENTEROLOGY IP CONSULT Images from the original note were not included. Physician Attestation I, Ozzie Michelle, have reviewed and discussed with the advanced practice provider theirhistory, physical and plan. I personally reviewed the vital signs, medications, labs and imaging. Agree with history, findings and plan as per CECILLE note below. This will be billed as an CECILLE consult. Exam: Vital signs: Temp: 99.4 ??F (37.4 ??C) Temp src: Oral BP: (!) 146/105 Pulse: 92 Resp: 11 SpO2: 96 % O2 Device: None (Room air) Height: 172.7 cm (5' 8) Weight: 108.9 kg (240 lb) Estimated body mass index is 36.49 kg/m?? as calculated from the following: Height as of this encounter: 1.727 m (5' 8). Weight as of this encounter: 108.9 kg (240 lb). Impression: -61-year-old female with moderate C. difficile colitis with concomitant CT scan thickening nausea and vomiting. C. difficile toxin and antigen positive on this admission. DOMINICK stool panel is pending. It is noted that she has a prior history of C. difficile in 05/02/2017. -Stable medical problems otherwise under the care of admitting team. Recommendations: -Recommend vancomycin 125 mg p.o. 4 times daily for 2 weeks. -Avoid unnecessary antibiotics. -Given that this is the second episode for this patient, albeit 5 years ago, would recommend daily probiotic long-term. -[facility] will set up outpatient follow-up in 2 to 3 months. Office will call the patient to schedule. -IVF and supportive care as per admitting team. -We will no longer follow unless requested. Please call us if the patient fails to respond to vancomycin therapy or if there is any other new concerns that develop. Thank you for allowing me to participate in this patient's healthcare. Please call any further questions. Ozzie Michelle MD, [facility] [phone] [facility] Consultation Kaila Hernandez [employer] [facility] [id number] 61 year old female Admission Date/Time: 10/14/2022 Primary Care Provider: Dyan Fuentes Referring / Attending Physician: Luis Alfonso MD We were asked to see the patient in consultation by Dr. Herrera for evaluation of diarrhea. CC: diarrhea HPI: Kaila Hernandez is a 61 year old female with PMH chronic pain on buprenorphine, COPD, GERD, anxiety, anemia, DMT2, C diff (~5 years ago), pancreatitis who presents from home with multipleepisodes of NV and diarrhea. She reports having ongoing NV and diarrhea up to 15 watery stools a day for approx the last 8 days. Denies fever. Denies recent AB use. Pt with persistent nausea and vomiting small amounts of bile colored emesis x2 during my visit today. Reports she had stopped all my meds approx 3 days ago due to nausea and vomiting, didn't feel she could keep them down. Reviewed chart with positive C. Diff cultures. Last colonoscopy 05/02/17 ROS: A comprehensive ten point review of systems was negative aside from those in mentioned in the HPI. PAST MEDICAL HISTORY: Patient Active Problem List Diagnosis Date Noted ??? At risk for healthcare associated infection 08/10/2020 Priority: High ??? Pancolitis (H) 10/14/2022 Priority: Medium ??? Nausea and vomiting, unspecified vomiting type 10/14/2022 Priority: Medium ??? Postoperative back pain 11/15/2021 Priority: Medium ??? S/P laminectomy 11/10/2021 Priority: Medium ??? Cervical spondylosis with myelopathy 05/18/2021 Priority: Medium ??? Abdominal pain, generalized 01/16/2021 Priority: Medium ??? Prolonged Q-T interval on ECG 01/16/2021 Priority: Medium ??? Generalized anxiety disorder 11/19/2020 Priority: Medium ??? Hypokalemia 10/27/2020 Priority: Medium ??? Intractable abdominal pain 10/27/2020 Priority: Medium ??? Generalized muscle weakness 08/19/2020 Priority: Medium ??? Weakness of right foot 08/09/2020 Priority: Medium ??? S/P total hip arthroplasty 08/06/2020 Priority: Medium ??? Insomnia, unspecified type 07/29/2020 Priority: Medium ??? Chronic diastolic congestive heart failure (H) 06/02/2020 Priority: Medium ??? MARIELLE (obstructive sleep apnea) 07/24/2018 Priority: Medium ??? Recurrent Clostridium difficile diarrhea 04/28/2018 Priority: Medium ??? Postablative hypothyroidism 11/25/2017 Priority: Medium ??? Migraine 11/09/2017 Priority: Medium ??? Type 2 diabetes mellitus without complication, without long-term current use of insulin (H) 08/27/2017 Priority: Medium ??? Nausea with vomiting 08/27/2017 Priority: Medium ??? Avascular necrosis of bone of hip (H) 05/24/2017 Priority: Medium ??? NAFLD (nonalcoholic fatty liver disease) 04/05/2017 Priority: Medium ??? Benign essential hypertension 02/20/2017 Priority: Medium ??? Opioid dependence (H) 02/20/2017 Priority: Medium ??? COPD (chronic obstructive pulmonary disease) (H) 01/12/2017 Priority: Medium ??? Moderate episode of recurrent major depressive disorder (H) 01/12/2017 Priority: Medium ??? Anxiety 12/28/2016 Priority: Medium ??? Vitamin D deficiency 11/30/2010 Priority: Medium ??? Chronic pain 11/30/2010 Priority: Medium ? ? Hyperlipidemia LDL goal <100 11/30/2010 Priority: Medium ??? Vitamin B12 deficiency Priority: Medium ??? Neurogenic bladder Priority: Medium intermittent straight cath ??? Recurrent pancreatitis Priority: Medium ??? Hypertriglyceridemia Priority: Medium ??? Hereditary and idiopathic peripheral neuropathy Priority: Medium abstracted 12/26/01 Problem list name updated by automated process. Provider to review ??? Degeneration of intervertebral disc, site unspecified Priority: Medium abstracted 12/26/01 ??? Esophageal reflux Priority: Medium abstracted 12/26/01 ??? Nephrolithiasis Priority: Medium ??? Diabetic neuropathy (H) Priority: Medium ??? Tobacco dependence Priority: Medium SOCIAL HISTORY: Social History Tobacco Use ??? [...] Substance Abuse Sister ??? Substance Abuse Sister ALLERGIES: Allergies Allergen Reactions ??? Bees Anaphylaxis ??? Levaquin [Levofloxacin Hemihydrate] Rash ??? Reglan [Metoclopramide Hcl] Hives ??? Droperidol ??? Nalbuphine Hcl ??? Phenergan [Promethazine] Other (See Comments) Patient reports she gets mean & jerky MEDICATIONS: Current Facility-Administered Medications Medication ??? acetaminophen (TYLENOL) tablet 975 mg ??? amLODIPine (NORVASC) tablet 10 mg ??? buprenorphine HCl-naloxone HCl (SUBOXONE) 2-0.5 MG per film 1 Film ??? calcium carbonate (OS-AILSA) tablet 600 mg ??? desvenlafaxine (PRISTIQ) 24 hr tablet 150 mg ??? glucose gel 15-30 g Or ??? dextrose 50 % injection 25-50 mL Or ??? glucagon injection 1 mg ??? fenofibrate (TRICOR) tablet 48 mg ??? [START ON 10/16/2022] ferrous sulfate (FEROSUL) tablet 650 mg ??? hydrOXYzine (ATARAX) tablet 25 mg ??? insulin aspart (NovoLOG) injection (RAPID ACTING) ??? insulin aspart (NovoLOG) injection (RAPID ACTING) ??? levothyroxine (SYNTHROID/LEVOTHROID) tablet 350 mcg ??? melatonin tablet 1 mg ??? methocarbamol (ROBAXIN) tablet 500-1,000 mg ??? metoprolol tartrate (LOPRESSOR) tablet 25 mg ??? ondansetron (ZOFRAN ODT) ODT tab 4 mg Or ??? ondansetron (ZOFRAN) injection 4 mg ??? oxyCODONE (ROXICODONE) tablet 5 mg ??? prochlorperazine (COMPAZINE) injection 5 mg Or ??? prochlorperazine (COMPAZINE) tablet 5 mg Or ??? prochlorperazine (COMPAZINE) suppository 25 mg ??? [START ON 10/16/2022] risperiDONE (risperDAL M-TABS) ODT tab 1 mg ??? sodium chloride 0.9% infusion ??? vancomycin (VANCOCIN) capsule 125 mg Current Outpatient Medications Medication ??? acetaminophen (TYLENOL) [...] 1 g tablet ??? Continuous Blood Gluc District Engineer (DEXCOM G6 UNDERGROUND ROOF BOLTER) ANITA ??? Continuous Blood Gluc Sensor (DEXCOM [...] MM) 31G X 5 MM miscellaneous ??? levothyroxine (SYNTHROID/LEVOTHROID) 175 MCG tablet ??? Lidocaine (LIDOCARE) 4 % Patch ??? menthol (ICY HOT) 5 % PTCH ??? methocarbamol (ROBAXIN) 500 MG tablet ??? metoprolol tartrate (LOPRESSOR) 25 MG tablet ??? naloxone (NARCAN) nasal spray ??? nitroGLYcerin (NITROSTAT) 0.4 MG sublingual tablet ??? nystatin (MYCOSTATIN) [id number] UNIT/GM external ointment ??? omega-3 acid ethyl esters (LOVAZA) 1 g capsule ??? ondansetron (ZOFRAN ODT) 8 MG ODT tab ??? pantoprazole (PROTONIX) 40 MG EC tablet ??? Potassium Gluconate 595 MG CAPS ??? risperiDONE (RISPERDAL M-TABS) 0.5 MG ODT ??? rosuvastatin (CRESTOR) 40 MG tablet ??? vitamin D3 (CHOLECALCIFEROL) 1.25 MG (99570 UT) capsule PHYSICAL EXAM: BP (!) 172/99 Pulse 92 Temp 99.4 ??F (37.4 ??C) (Oral) Resp 11 Ht 1.727 m (5' 8) Wt 108.9 kg (240 lb) LMP (LMP Unknown) SpO2 96% BMI 36.49 kg/m?? GEN: NAD HEENT: No icterus, no lymphadenopathy ABD: Soft mild tenderness, +bowel sounds SKIN: No rash, jaundice MSKL: no LE edema, strength 5/5 all 4 extrems NEURO: Alert and oriented ADDITIONAL DATA: I reviewed the patient's new clinical lab test results. Recent Labs Lab Test 10/15/22 0753 10/14/22 2104 06/12/22 1628 11/10/21 0748 10/17/21 1044 05/19/21 0546 05/18/21 0621 05/11/21 1328 WBC 4.4 3.8* 3.6* < > -- < > 5.1 5.1 HGB 13.1 14.4 12.0 < > -- < > 11.8 12.5 MCV 92 92 109* < > -- < > 102* 100 PLT 125* 146* 215 < > -- < > 132* 153 INR -- -- -- -- 1.05 -- 0.94 0.89 < > = values in this interval not displayed. Recent Labs Lab Test 10/15/22 0753 10/14/22210306/12/22 1628 POTASSIUM 3.6 3.8 3.6 CHLORIDE 102 98 98 CO2 21* 19* 22 BUN 7.5* 8.9 11.4 ANIONGAP 14 21* 16* Recent Labs Lab Test 10/15/22 0753 10/14/22 2330 10/14/22210306/12/22 1628 11/16/21 0641 11/15/21 1844 07/17/21 1608 01/16/21 1536 01/16/21 1253 10/29/20 1242 10/28/20 0803 03/15/18 1411 03/15/18 1410 11/09/15 1032 11/09/15 0900 ALBUMIN 3.7 -- 4.0 3.9 < > -- -- < > 3.1* < > 3.1* < > 3.2* < > -- BILITOTAL 0.6 -- 0.4 0.3 < > -- -- < > 2.6* < > 0.6 < > 0.3 < > -- ALT 20 -- 25 25 < > -- -- < > 95* < > 134* < > 83* < > -- AST 44* -- 56* 34 < > -- -- < > 317* < > 355* < > 432* < > -- PROTEIN -- 70* -- -- -- 10* Negative < > -- < > -- < > -- < > -- LIPASE -- -- 17 -- -- -- -- -- 136 -- 901* < > 108 < > 414* AMYLASE -- -- -- -- -- -- -- -- -- -- -- -- 7* -- 46 < > = values in this interval not displayed. PROCEDURES Prior to this admission 05/02/17 COLONOSCOPY Impression: ??Large amount of bile noted in the colon, ?bile salt ? diarrhea as a secondary cause to her chronic ? diarrhea in addition to her multiple episodes of ? C.diff (currently admitted for C.diff). 61 year old female admitted for >1 week history of watery stools. Pt has history of c. Diff in the remote past, last occurrence approx 5 years ago. C. Diff stool studies positive for antigen and positive toxin by PCR. Enteric bacterial and viral studies pending, this admission. ASSESSMENT/PLAN: 1. Diarrhea secondary to positive C. Diff toxin and antigen - Start Vancomycin 125mg PO QID x14 days - Pending enteric bacterial and viral stool panel - Follow up in outpatient clinic 3 months. Our office will call pt to schedule. - IVF and Supportive cares per primary team GI will sign off. Please reach out if patient fails to respond to AB therapy or new concerns develop Sonja Mora, [facility] 10/15/2022 12:12 PM [phone] (office) This case was discussed with Dr. Michelle who agrees to the above assessment and plan. 55 minutes of total time was spent providing patient care, including patient evaluation, reviewing documentation/test result, and order entry clerk. documented in this encounter ED Notes * Trell Bowen RN - 10/15/2022 1:24 AM CDT [facility] ED Nurse Handoff Report aKila Hernandez is a 61 year old female ED Chief complaint: Nausea & Vomiting . ED Diagnosis: Final diagnoses: Pancolitis (H) Nausea and vomiting, unspecified vomiting type Allergies: Allergies Allergen Reactions ??? Bees Anaphylaxis ??? Levaquin [Levofloxacin Hemihydrate] Rash ??? Reglan [Metoclopramide Hcl] Hives ??? Droperidol ??? Nalbuphine Hcl ??? Phenergan [Promethazine] Other (See Comments) Patient reports she gets mean & jerky Code Status: Full Code Activity level - Baseline/Home: Assist X 1. Activity Level - Current: Assist X 1. Lift room needed:No. Bariatric: No Clip Wrapper Needed: No Isolation: Yes. Infection: Not Applicable C-Diff Pending. Vital Signs: Vitals: 10/14/22 2130 10/14/22 2145 10/14/22 2200 10/15/22 0051 BP: (!) 157/99 (!) 159/108 (!) 151/102 (!) 157/104 Pulse: 89 79 80 96 Resp: (!) 6 12 12 Temp: 98.8 ??F (37.1 ??C) TempSrc: Oral SpO2: 93% 91% 95% 96% Weight: Height: Cardiac Rhythm: , Pain level: Patient confused: No. Patient Falls Risk: Yes. Elimination Status: Has voided Patient Report - Initial Complaint: Kaila Hernandez is a 61 year old female with a history of appendectomy, hypertriglyceridemia, diabetes type 2, and pancreatitis who presents with nausea, vomiting, and abdominal pain. The patient states she has had abdominal pain for the past 7 days but developed severe nausea and non-bilious vomiting this evening. She describes her pain as a bilateral low abdominal cramping. Patient also states she noticed bright red blood in her stool today but endorses history of hemorrhoids. She endorses chills, diarrhea, and reduced appetite for past week but norecorded fevers, chest pain, shortness of breath, or urinary complaints. She states she has a history of recurrent pancreatitis related to her hypertriglyceridemia. No alcohol use today. Patient alsohas distant history of C. difficile infection. Focused Assessment: Respiratory: Positive for shortness of breath. Gastrointestinal: Positive for abdominal pain, diarrhea, nausea and vomiting. Neurological: Positive for syncope. Tests Performed: labs, Stool sample, CT scan. Abnormal Results: Labs Ordered and Resulted from Time of ED Arrival to Time of ED Departure CBC WITH PLATELETS - Abnormal Result Value WBC Count 3.8 (*) RBC Count 4.65 Hemoglobin 14.4 Hematocrit 42.6 MCV 92 MCH 31.0 MCHC 33.8 RDW 15.2 (*) Platelet Count 146 (*) COMPREHENSIVE METABOLIC PANEL - Abnormal Sodium 138 Potassium 3.8 Chloride 98 Carbon Dioxide (CO2) 19 (*) Anion Gap 21 (*) Urea Nitrogen 8.9 Creatinine 0.88 Calcium 8.4 (*) Glucose 171 (*) Alkaline Phosphatase 245 (*) AST 56 (*) ALT 25 Protein Total 6.8 Albumin 4.0 Bilirubin Total 0.4 GFR Estimate 74 UA MACROSCOPIC WITH REFLEX TO MICRO AND CULTURE - Abnormal Color Urine Yellow Appearance Urine Cloudy (*) Glucose Urine Negative Bilirubin Urine Negative Ketones Urine Trace (*) Specific [place] Urine 1.005 Blood Urine Negative pH Urine 7.0 Protein Albumin Urine 70 (*) Urobilinogen Urine 4.0 (*) Nitrite Urine Negative Leukocyte Esterase Urine Small (*) Bacteria Urine Few (*) RBC Urine 3 (*) WBC Urine 0 LACTIC ACID WHOLE BLOOD - Abnormal Lactic Acid 5.7 (*) MAGNESIUM - Abnormal Magnesium 1.6 (*) GLUCOSE BY METER - Abnormal GLUCOSE BY METER POCT 174 (*) LIPASE - Normal Lipase 17 OCCULT BLOOD STOOL - Normal Occult Blood Negative GLUCOSE MONITOR NURSING POCT GLUCOSE MONITOR NURSING POCT GLUCOSE MONITOR NURSING POCT GLUCOSE MONITOR NURSING POCT GLUCOSE MONITOR NURSING POCT TYPE AND SCREEN, ADULT ABO/RH(D) A POS Antibody Screen Negative SPECIMEN EXPIRATION DATE [id number] ENTERIC BACTERIA AND VIRUS PANEL BY DOMINICK STOOL BLOOD CULTURE BLOOD CULTURE C. DIFFICILE TOXIN B PCR WITH REFLEX TO C. DIFFICILE ANTIGEN AND TOXINS A/B EIA ABO/RH TYPE AND SCREEN CT Abdomen Pelvis w Contrast Final Result IMPRESSION: 1. Nonspecific pancolitis. There is also wall thickening of the terminal ileum. No bowel obstruction. 2. Fatty infiltration of the liver. Treatments provided: Monitor, Pain control, Nausea control Family Comments: NA OBS brochure/video discussed/provided to patient: Yes ED Medications: Medications acetaminophen (TYLENOL) tablet 975 mg (has no administration in time range) amLODIPine (NORVASC) tablet 10 mg (has no administration in time range) buprenorphine HCl-naloxone HCl (SUBOXONE) 2-0.5 MG per film 1 Film (has no administration in time range) calcium carbonate (OS-ALISA) tablet 600 mg (has no administration in time range) desvenlafaxine (PRISTIQ) 24 hr tablet 100 mg (has no administration in time range) desvenlafaxine (PRISTIQ) 24 hr tablet 50 mg (has no administration in time range) fenofibrate (TRICOR) tablet 48 mg (has no administration in time range) ferrous sulfate (FEROSUL) tablet 650 mg (has no administration in time range) hydrOXYzine (ATARAX) tablet 25 mg (25 mg Oral $Given 10/15/22112) levothyroxine (SYNTHROID/LEVOTHROID) tablet 350 mcg (has no administration in time range) methocarbamol (ROBAXIN) tablet 500-1,000 mg (has no administration in time range) metoprolol tartrate (LOPRESSOR) tablet 25 mg (has no administration in time range) risperiDONE (risperDAL M-TABS) ODT tab 0.5 mg (has no administration in time range) melatonin tablet 1 mg (has no administration in time range) ondansetron (ZOFRAN ODT) ODT tab 4 mg (has no administration in time range) Or ondansetron (ZOFRAN) injection 4 mg (has no administration in time range) sodium chloride 0.9% infusion (has no administration in time range) oxyCODONE (ROXICODONE) tablet 5 mg (5 mg Oral $Given 10/15/22112) glucose gel 15-30 g (has no administration in time range) Or dextrose 50 % injection 25-50 mL (has no administration in time range) Or glucagon injection 1 mg (has no administration in time range) insulin aspart (NovoLOG) injection (RAPID ACTING) (has no administration in time range) insulin aspart (NovoLOG) injection (RAPID ACTING) (1 Units Subcutaneous Not Given 10/15/22111) 0.9% sodium chloride BOLUS (0 mLs Intravenous Stopped 10/14/222207) HYDROmorphone (PF) (DILAUDID) injection 0.5 mg (0.5 mg Intravenous $Given 10/14/222132) HYDROmorphone (PF) (DILAUDID) injection 0.5 mg (0.5 mg Intravenous $Given 10/14/222206) sodium chloride (PF) 0.9% PF flush 100 mL (65 mLs Intravenous $Given 10/14/222242) iopamidol (ISOVUE-370) solution 500 mL (100 mLs Intravenous $Given 10/14/222242) HYDROmorphone (PF) (DILAUDID) injection 0.5 mg (0.5 mg Intravenous $Given 10/14/222317) ondansetron (ZOFRAN) injection 4 mg (4 mg Intravenous $Given 10/14/222330) sodium chloride 0.9% infusion ( Intravenous $New Bag 10/15/22 001) ondansetron (ZOFRAN) injection 4 mg (4 mg Intravenous $Given 10/15/22 001) Drips infusing: Yes For the majority of the shift, the patient's behavior Green. Interventions performed were NA. Sepsis treatment initiated: No Patient tested for COVID 19 prior to admission: NO ED Nurse Name/Phone Number: Germain Rodriguez RN, 1:24 AM Obs handout given. RECEIVING UNIT ED HANDOFF REVIEW Above ED Nurse Handoff Report was reviewed: Yes Reviewed by: Trell Bowen RN on October 15, 2022 at 1:31 PM * Nilsa Martino RN - 10/15/2022 12:31 AM CDT Bed: ED20 Expected date: Expected time: Means of arrival: Comments: 35 * Natalia Dickens RN - 10/14/2022 8:52 PM CDT BIBA for BLQ abd pain for 1w. Vomiting started today. BM today coated toilet bowl with bright red blood. Pt HTN en route, SR per ems. BG 164 en route. Pt given IV and ODT zofran by medics. * Imani Martines RN - 10/14/2022 8:48 PM CDT Bed: ED35 Expected date: Expected time: Means of arrival: Comments: [facility] 61F * Elina Reese PA-C - 10/14/2022 8:48 PM CDT History Chief Complaint: Nausea & Vomiting The history is provided by the patient. Kaila Hernandez is a 61 year old female with a history of appendectomy, hypertriglyceridemia, diabetes type 2, and pancreatitis who presents with nausea, vomiting, and abdominal pain. The patient states she has had abdominal pain for the past 7 days but developed severe nausea and non-bilious vomiting this evening. She describes her pain as a bilateral low abdominal cramping. Patient also states she noticed bright red blood in her stool today but endorses history of hemorrhoids. She endorses chills, diarrhea, and reduced appetite for past week but no recorded fevers, chest pain, shortness of breath, or urinary complaints. She states she has a history of recurrent pancreatitis relatedto her hypertriglyceridemia. No alcohol use today. Patient also has distant history of C. difficileinfection. Independent Historian: None Review of External Notes: none ROS: Review of Systems Respiratory: Positive for shortness of breath. Gastrointestinal: Positive for abdominal pain, diarrhea, nausea and vomiting. Neurological: Positive for syncope. All other systems reviewed and are negative. Allergies: Bees Levaquin [Levofloxacin Hemihydrate] Reglan [Metoclopramide Hcl] Droperidol Nalbuphine Hcl Phenergan [Promethazine] Medications: albuterol norvasc suboxone peridex colestid Cyanocobalamin Pristiq Epinephrine Tricor Atarax Novolog Basaglar Levothyroxine Robaxin Lopressor Narcan Nitrostat Mycostatin Lovaza Zofran Protonix Risperdal Crestor Past Medical History: Anemia C-Diff COPD Degeneration of intervertebral disc Diabetic neuropathy Reflux Anxiety Blood transfusion C-Diff colitis Hypertension Hypertriglyceridemia Malabsorption Nephrolithiasis Neurogenic bladder Opioid dependence MARIELLE Port-A-Cath Pancreatitis Cardiomyopathy Syncope Tobacco dependence Transaminitis Hypothyroidism Vitamin B12 deficiency Vitamin D deficiency Past Surgical History: Appendectomy Hip arthroplasty Ankle arthroscopy Lumbar/cervical back surgery Cardiac cath Colonoscopy x3 cystocele repair Discectomy, fusion cervical EGD x4 Fusion cervical anterior 1 level Hysterectomy Hip I&D Insert pump morphine IR port removal right Laminectomy lumbar 2 levels Cholecystectomy Fibula ORIF Ankle reconstruction Rectocele and cystocele repairs remoce hardware lower extremity Repair rectocele Family History: Mother: colon cancer Father: liver disease, substance abuse Sister: substance abuse Social History: The patient presents with her PCP: Dyan Fuentes Physical Exam Patient Vitals for the past 24 hrs: BP Temp Temp src Pulse Resp SpO2 Height Weight 10/14/22 2200 (!) 151/102 -- -- 80 12 95 % -- -- 10/14/22 2145 (!) 159/108 -- -- 79 12 91 % -- -- 10/14/22 2130 (!) 157/99 -- -- 89 (!) 6 93 % -- -- 10/14/222053 (!) 169/104 98.8 ??F (37.1 ??C) Temporal 89 16 100 % 1.727 m (5' 8) 108.9 kg (240 lb) Physical Exam Constitutional: Alert, attentive, GCS 15 HENT: Nose: Nose normal. Mouth/Throat: Oropharynx is clear, mucous membranes are moist Eyes: EOM are normal. CV: regular rate and rhythm; no murmurs, rubs or gallups Chest: Effort normal and breath sounds normal. GI: Epigastrium - no tenderness, no guarding RUQ - no tenderness or Kat's sign RLQ - tenderness with guarding, negative Rovsing's Suprapubic area - no tenderness, no guarding LLQ - no tenderness, no guarding LUQ - no tenderness, no guarding No distension. Normal bowel sounds : pump and still operator present Nurse Natalia, external hemorrhoid with no thrombosis or active bleeding. No blood stool observed in rectum. MSK: Normal range of motion. Neurological: Alert, attentive Skin: Skin is warm and dry. Emergency Department Course Imaging: CT Abdomen Pelvis w Contrast Final Result IMPRESSION: 1. Nonspecific pancolitis. There is also wall thickening of the terminal ileum. No bowel obstruction. 2. Fatty infiltration of the liver. Report per radiology Laboratory: Labs Ordered and Resulted from Time of ED Arrival to Time of ED Departure CBC WITH PLATELETS - Abnormal Result Value WBC Count 3.8 (*) RBC Count 4.65 Hemoglobin 14.4 Hematocrit 42.6 MCV 92 MCH 31.0 MCHC 33.8 RDW 15.2 (*) Platelet Count 146 (*) COMPREHENSIVE METABOLIC PANEL - Abnormal Sodium 138 Potassium 3.8 Chloride 98 Carbon Dioxide (CO2) 19 (*) Anion Gap 21 (*) Urea Nitrogen 8.9 Creatinine 0.88 Calcium 8.4 (*) Glucose 171 (*) Alkaline Phosphatase 245 (*) AST 56 (*) ALT 25 Protein Total 6.8 Albumin 4.0 Bilirubin Total 0.4 GFR Estimate 74 LACTIC ACID WHOLE BLOOD - Abnormal Lactic Acid 5.7 (*) LIPASE - Normal Lipase 17 OCCULT BLOOD STOOL - Normal Occult Blood Negative UA MACROSCOPIC WITH REFLEX TO MICRO AND CULTURE TYPE AND SCREEN, ADULT ABO/RH(D) A POS Antibody Screen Negative SPECIMEN EXPIRATION DATE [id number] C. DIFFICILE TOXIN B PCR WITH REFLEX TO C. DIFFICILE ANTIGEN AND TOXINS A/B EIA ENTERIC BACTERIA AND VIRUS PANEL BY DOMINICK STOOL ABO/RH TYPE AND SCREEN Emergency Department Course & Assessments: Interventions: Medications sodium chloride 0.9% infusion (has no administration in time range) sodium chloride 0.9% infusion (has no administration in time range) ondansetron (ZOFRAN) injection 4 mg (has no administration in time range) 0.9% sodium chloride BOLUS (0 mLs Intravenous Stopped 10/14/222207) HYDROmorphone (PF) (DILAUDID) injection 0.5 mg (0.5 mg Intravenous $Given 10/14/222132) HYDROmorphone (PF) (DILAUDID) injection 0.5 mg (0.5 mg Intravenous $Given 10/14/222206) sodium chloride (PF) 0.9% PF flush 100 mL (65 mLs Intravenous $Given 10/14/222242) iopamidol (ISOVUE-370) solution 500 mL (100 mLs Intravenous $Given 4/6/23 2243) HYDROmorphone (PF) (DILAUDID) injection 0.5 mg (0.5 mg Intravenous $Given 10/14/22 2318) ondansetron (ZOFRAN) injection 4 mg (4 mg Intravenous $Given 10/14/22 2331) Assessments: See below. Independent Interpretation (X-rays, CTs, rhythm strip): I reviewed the CT and agree with the findings Consultations/Discussion of Management or Tests: ED Course as of 10/15/22 0004 [facility] Oct 14, [id number] I greeted the patient and obtained relevant information 2303 I rechecked the patient and explained findings [address] Srivastava regarding the patient. He agreed the patient should be admitted to observation Social Determinants of Health affecting care: None Disposition: The patient was admitted to the hospital under the care of Dr. Herrera. Impression & Plan Medical Decision Making: Patient is a nontoxic-appearing 61-year-old female with history of recurrent pancreatitis who presents with nausea, vomiting, and worsening lower abdominal pain for the past week. She is in no acute distress upon arrival but endorses nausea. Vitals are appropriate, she is hypertensive at 151/102. No evidence of tachypnea, tachycardia, or hypoxia. Physical examination reveals right lower quadrant abdominal tenderness and recurrent vomiting. Rectal exam shows evidence of hemorrhoid but no brisk GI bleed. Differential includes pancreatitis, colitis, C. difficile infection, GI hemorrhage, gastroenteritis, bowel obstruction. Preliminary labs obtained. Evidence of leukopenia with white count at 3.4. LFTs are grossly normal with elevation of alk phosphatase at 245. Anion gap elevated at 21 otherwise electrolytes are withinnormal limits. Negative fecal occult blood test. Considering patient has history of recurrent pancreatitis and ongoing abdominal pain, CT of abdomen pelvis obtained. Evidence of a nonspecific pancolitis with thickening of the terminal ileum. No evidence of obstruction. Results were discussed with patient. She continues to have significant pain and nausea despite IV medications and fluids. I staffed patient with Dr. Srivastava who agrees patient is candidate for inpatient admission for symptom control and possible IV antibiotics. He recommends enteric pathogen panel and C. Diff testing. Patient accepted by Hospitalist Dr. Herrera for admission. Patient aware of and agreeable to admission. Note: Lactic returned elevated at 5.7. I spoke with Dr. Srivastava who recommends continuous IV fluids. C. Diff infection suspected. Dr. Herrera aware. Diagnosis: ICD-10-CM 1. Pancolitis (H) K51.00 2. Nausea and vomiting, unspecified vomiting type R11.2 Discharge Medications: New Prescriptions No medications on file Scribe Disclosure: I, Clayton Acosta, am serving as a scribe at 9:43 PM on 10/14/2022 to document services personally performed by Elina Reese PA-C based on my observations and the provider's statements to me. 10/14/2022 Elina Reese PA-C Steinbrueck, Emily, PA-C 10/14/22 2346 Elina Reese PA-C 10/15/22 0005 Associated attestation - García Srivastava MD - 10/15/2022 4:40 AM CDT Emergency Department Attending Supervision Note 10/15/2022 4:36 AM I evaluated this patient in conjunction with FELY Reese. Patient presents with abdominal pain, nausea, vomiting for several days, much worse today. Also notes blood in stool. Diffusely tender on abdominal exam. I was brought into case after patient was discovered to have pancolitis on abdominal CT. I independently reviewed patient's CT and noted colitis appears worse in the terminal ileum, cecum and ascending colon. No perforation noted. Broad differential for this considered including infectious colitis such as C. difficile, norovirus, or other bacterial colitis, inflammatory bowel disease such as Crohn's disease/ulcerative colitis, though this isconsidered less likely given age and no previous history, and ischemic colitis. Patient's white count is slightly low which is in line with previous values, but her lactic acid level is significantlyelevated. Patient does have history of heart failure, and she did not have any hemodynamic instability, therefore large fluid bolus was not given. Instead, started patient on maintenance fluids. Doubt this is ischemic colitis as inflammation is in multiple vascular distributions. Overall, favor infectious colitis, and patient does have a history of C. difficile. Stool studies are pending. We willhold on antibiotics at this time until these return. Hospital service accepted patient for admission. I discussed patient's findings with her and answered all of her questions personally. She is admitted in stable condition. My impression is: Diagnosis ICD-10-CM 1. Pancolitis (H) K51.00 2. Nausea and vomiting, unspecified vomiting type R11.2 documented in this encounter Miscellaneous Notes * Plan of Care - Shane Mcclure RN - 10/17/2022 1:03 PM CDT Patient's After Visit Summary was reviewed with patient Patient verbalized understanding of After Visit Summary, recommended follow up and was given an opportunity to ask questions. Discharge medications sent home with patient/family: YES Discharged with spouse Roosevelt * Plan of Care - Shane Mcclure RN - 10/17/2022 12:56 PM CDT Care from 0700 - 1300 ?? Inpatient Progress Note: For complete assessment see flow sheet documentation. ?? BP (!) 144/89 (BP Location: Left arm, Cuff Size: Adult Regular) Pulse 76 Temp 98.4 ??F (36.9 ??C) (Oral) Resp 18 Ht 1.727 m (5' 8) Wt 108.9 kg (240 lb) LMP (LMP Unknown) SpO2 96% BMI36.49 kg/m? Orientation:??A & O x 4 Neuro:??dizziness stable on Meclizine Pain status:??stable on current regimen Activity:??A x 1, IV pole?? Resp:??WNL Cardiac:??WNL GI:??denies N & V :?wnl Skin:??wnl Infusions:Discontinued Pertinent Labs:??K & Mg replacement, WNLs Diet:??Regular Low fiber diet Consults:??Follow up with primary care provider in 2 weeks Discharge Plan: Completed * Plan of Care - Will Andrews RN - 10/17/2022 6:26 AM CDT Care from [id number] Inpatient Progress Note: For complete assessment see flow sheet documentation. BP (!) 154/80 (BP Location: Left arm) Pulse 67 Temp 98.1 ??F (36.7 ??C) (Oral) Resp 16 Ht 1.727 m (5' 8) Wt 108.9 kg (240 lb) LMP (LMP Unknown) SpO2 98% BMI 36.49 kg/m?? Orientation: A & O x 4 Neuro: dizziness, unsteady gait Pain status: Rates @ 8, Oxycodone, robaxin Given & effective, Activity: A x 1 GB Resp: WNL Cardiac: WNL GI: denies N & V : wnl Skin: wnl Infusions: NS @ 125 ml/hr Pertinent Labs: K & Mg replacement Diet: Reg low fiber diet Consults: Discharge Plan: Pending Goal Outcome Evaluation: * Plan of Care - Shane Mcclure RN - 10/16/2022 1:39 PM CDT PRIMARY DIAGNOSIS: Pancolitis OUTPATIENT/OBSERVATION GOALS TO BE MET BEFORE DISCHARGE: 1. ADLs back to baseline: No 2. Activity and level of assistance: Ambulating independently. 3. Pain status: Improved-controlled with oral pain medications. 4. Return to near baseline physical activity: Yes [employer] Nurse Safe discharge environment identified: Yes Barriers to discharge: Yes Entered by: Shane Mcclure RN 10/16/2022 1:40 PM Pt alert and oriented x 4, pain in abdomen managed with oral medications, PRN Oxycodone administered x2, Zofran x1 and Compazine x1 for nausea, NS @ 125ml, SBA to bathroom with IV pole, frequency of loose stools improving, reports 4 loose stools this shift, diet advanced to clear liquids, tolerating clear liquid diet well, no emesis. Continue plan of care. Please review provider order for any additional goals. Nurse to notify provider when observation goals have been met and patient is ready for discharge. * Plan of Care - Evi Gonzalez RN - 10/16/2022 6:16 AM CDT PRIMARY DIAGNOSIS Pancolitis OUTPATIENT/OBSERVATION GOALS TO BE MET BEFORE DISCHARGE 1. Orthostatic performed: No 2. Tolerating PO fluid and/or antibiotics (if applicable): Yes 3. Nausea/Vomiting/Diarrhea symptoms improved: No, loose 4. Pain status: Improved but still requiring IV narcotics. 5. Return to near baseline physical activity: No [employer] Nurse Safe discharge environment identified: No Barriers to discharge: Yes Entered by: Evi Gonzalez RN 10/16/2022 6:16 AM Please review provider order for any additional goals. Nurse to notify provider when observation goals have been met and patient is ready for discharge. IV pain medication given as requested by pain as it woks better than the po. Complained of nausea IV Zofran given 2x. Remained NPO except meds and ice chips, IV fluids @125 ml/hr continuous. * Provider Notification - Evi Gonzalez RN - 10/16/2022 1:25 AM CDT Pt requesting if can have ice chips currently NPO except meds only. Thanks. * Plan of Care - Evi Gonzalez RN - 10/16/2022 12:00 AM CDT PRIMARY DIAGNOSIS Pancolitis OUTPATIENT/OBSERVATION GOALS TO BE MET BEFORE DISCHARGE 1. Orthostatic performed: No 2. Tolerating PO fluid and/or antibiotics (if applicable): Yes 3. Nausea/Vomiting/Diarrhea symptoms improved: No, loose 4. Pain status: Improved but still requiring IV narcotics. 5. Return to near baseline physical activity: No [employer] Nurse Safe discharge environment identified: No Barriers to discharge: Yes Entered by: Evi Gonzalez RN 10/16/2022 1:02 AM Please review provider order for any additional goals. Nurse to notify provider when observation goals have been met and patient is ready for discharge. Pt A&Ox4. PIV inserted by Flyer, IV fluids restarted. Pt required IV Dilaudid and IV Zofran. * Plan of Care - Evi Gonzalez RN - 10/15/2022 8:00 PM CDT PRIMARY DIAGNOSIS: Pancolitis OUTPATIENT/OBSERVATION GOALS TO BE MET BEFORE DISCHARGE 1. Orthostatic performed: No 2. Tolerating PO fluid and/or antibiotics (if applicable): Yes 3. Nausea/Vomiting/Diarrhea symptoms improved: No, loose 4. Pain status: Per pt not improved with po pain meds 5. Return to near baseline physical activity: No [employer] Nurse Safe discharge environment identified: No Barriers to discharge: Yes Entered by: Evi Gonzalez RN 10/16/2022 12:59 AM Please review provider order for any additional goals. Nurse to notify provider when observation goals have been met and patient is ready for discharge. * Plan of Care - Carmel Gunderson RN - 10/15/2022 6:43 PM CDT PRIMARY DIAGNOSIS: PANCOLITIS, ABD PAIN, NAUSEA, DIARRHEA OUTPATIENT/OBSERVATION GOALS TO BE MET BEFORE DISCHARGE 1. Orthostatic performed: No 2. Tolerating PO fluid and/or antibiotics (if applicable): Yes 3. Nausea/Vomiting/Diarrhea symptoms improved: No, loose 4. Pain status: Improved-controlled with oral pain medications. 5. Return to near baseline physical activity: No [employer] Nurse Safe discharge environment identified: Yes Barriers to discharge: Yes Entered by: Carmel Gunderson RN 10/15/2022 6:59 PM Pt A/O x4. VSS. Pain managed adequately with Oxycodone x1. No IV access. Loose BM x1. Up Ax1 with walker and gait belt. NPO. * Plan of Care - Prachi Mccall RN - 10/15/2022 1:31 PM CDT Orientation:A&ox4 Vs:bp elevated. Home meds given. LS:clear GI:bs+, nauseated. , compazine given. Sips of water with meds. Loose stools still. Po vanco started. : voiding without problems Activity: pivots to bsc. Pain: c/o pain abd. Pt given oxycodone prn and home suboxone dose. Plan: po abx, monitor hydration. Blood sugars 185, 200 with insulin given. Pt waiting for room on obs unit. 1430:pt transferred to 232 on OBS floor. All belongings taken with pt. * Pharmacy-Admission Medication History - Jessica Lipscomb RPH - 10/15/2022 12:01 PM CDT Pharmacist Admission Medication History Admission medication history is complete. The information provided in this note is only as accurateas the sources available at the time of the update. Medication reconciliation/reorder completed by provider prior to medication history? Yes Information Source(s): Patient and Patient's pharmacy via in-person Pertinent Information: Changes made to [facility] medication list: ??? Added: Rexalti and clonazepam ??? Deleted: Miralax ??? Changed: Risperidone from 0.5 mg qam and 1 mg qpm to 1 mg qd Medication Affordability: Allergies reviewed with patient and updates made in EHR: no Medication History Completed By: Jessica Lipscomb RPH 10/15/2022 12:02 PM [facility] Med List Medication Sig Last Dose ??? acetaminophen (TYLENOL) 325 MG tablet Take 3 tablets (975 mg) by mouth every 6 hours as needed for mild pain Unknown ??? albuterol (PROAIR HFA/PROVENTIL HFA/VENTOLIN HFA) 108 (90 Base) MCG/ACT inhaler Inhale 2 puffs into the lungs every 4 hours as needed for shortness of breath / dyspnea or wheezing Unknown ??? amLODIPine (NORVASC) 10 MG tablet Take 1 tablet (10 mg) by mouth daily Unknown ??? brexpiprazole (REXULTI) 2 MG tablet Take 2 mg by mouth daily Unknown ??? buprenorphine HCl-naloxone HCl (SUBOXONE) 2-0.[address] 1 Film under the tongue 3 times daily OK to fill 09/21/22 start 09/23/22 Unknown ??? calcium carbonate (OS-ALISA) 1500 (600 Ca) MG tablet Take 1 tablet (600 mg) by mouth 2 times daily (with meals) Unknown ??? chlorhexidine (PERIDEX) 0.12 % solution Take 15 mLs by mouth daily as needed Unknown ??? clonazePAM (KLONOPIN) 1 MG tablet Take 1 mg by mouth 2 times daily Unknown ??? colestipol (COLESTID) 1 g tablet Take 1 tablet by mouth 2 times daily Unknown ??? Continuous Blood Gluc District Engineer (DEXCOM G6 UNDERGROUND ROOF BOLTER) ANITA USE DAILY Unknown ??? Continuous Blood Gluc Sensor (DEXCOM G6 SENSOR) MISC USE 1 SENSOR EVERY 10 DAYS Unknown ??? Continuous Blood Gluc Transmit (DEXCOM G6 TRANSMITTER) MISC Change every 3 months to continuously monitor blood glucose. Unknown ??? cyanocobalamin (CYANOCOBALAMIN) 1000 MCG/ML injection INJECT 1 ML (1000 MCG) INTRAMUSCULARLY EVERY 30 DAYS. DISCARD 28 DAYS AFTERFIRST USE Strength: 1,000 mcg/mL Unknown ??? desvenlafaxine (PRISTIQ) 100 MG 24 hr tablet TAKE 1 TABLET BY MOUTH EVERY DAY Unknown ??? desvenlafaxine (PRISTIQ) 50 MG 24 hr tablet TAKE 1 TABLET BY MOUTH ONCE DAILY TAKE WITH 100MG TABS FOR A TOTAL DAILY DOSE OF 150MGS Unknown ??? EPINEPHrine (ANY BX GENERIC EQUIV) 0.3 MG/0.3ML injection 2-pack Inject 0.3 mLs (0.3 mg) into the muscle as needed for anaphylaxis (EPI-PEN) Unknown ??? fenofibrate (TRICOR) 48 MG tablet Take 1 tablet (48 mg) by mouth daily Unknown ??? ferrous sulfate (FEROSUL) 325 (65 Fe) MG tablet Take 2 tablets (650 mg) by mouth daily (with breakfast) Unknown ??? hydrOXYzine (ATARAX) 25 MG tablet TAKE 1 TABLET (25 MG) BY MOUTH EVERY 6 HOURS NEEDED FOR ANXIETY OR PAIN ADJUVANT. Unknown ??? insulin aspart (NOVOLOG FLEXPEN) 100 UNIT/ML pen INJECT 1 UNIT FOR 50 POINTS ABOVE 150 WITH EACH MEAL (TOTAL DAILY DOSE 10-15 UNITS PER DAY) Unknown ??? insulin glargine (BASAGLAR KWIKPEN) 100 UNIT/ML pen Inject 10 Units Subcutaneous every morning Unknown ??? insulin pen needle (31G X 5 MM) 31G X 5 MM miscellaneous Use 1 pen needles daily or as directed. Unknown ??? levothyroxine (SYNTHROID/LEVOTHROID) 175 MCG tablet Take 2 tablets (350 mcg) by mouth daily Unknown ??? Lidocaine (LIDOCARE) 4 % Patch Place 1 patch onto the skin every 24 hours To prevent lidocaine toxicity, patient should be patch free for 12 hrs daily. Unknown ??? menthol (ICY HOT) 5 % PTCH Apply 1 patch topically every 8 hours as needed for muscle soreness Unknown ??? methocarbamol (ROBAXIN) 500 MG tablet Take 1-2 tablets (500-1,000 mg) by mouth 4 times daily asneeded for muscle spasms Unknown ??? metoprolol tartrate (LOPRESSOR) 25 MG tablet TAKE 1 TABLET BY MOUTH TWICE A DAY Unknown ??? naloxone (NARCAN) nasal spray Hanahan 1 spray (4 mg) into one nostril alternating nostrils as needed Unknown ??? nitroGLYcerin (NITROSTAT) 0.[address] 1 tablet (0.4 mg) under the tongue every 5 minutes as needed for chest pain Unknown ??? nystatin (MYCOSTATIN) 473982 UNIT/GM external ointment Apply topically 2 times daily (Patient taking differently: Apply topically 2 times daily as needed) Unknown ??? omega-3 acid ethyl esters (LOVAZA) 1 g capsule TAKE 2 CAPSULES BY MOUTH TWICE A DAY Unknown ??? ondansetron (ZOFRAN ODT) 8 MG ODT tab DISSOLVE 1 TABLET ON THE TONGUE TWICE DAILY NEEDED FORNAUSEA Unknown ??? pantoprazole (PROTONIX) 40 MG EC tablet Take 1 tablet (40 mg) by mouth daily Unknown ??? Potassium Gluconate 595 MG CAPS Take 1 capsule by mouth daily Unknown ??? risperiDONE (RISPERDAL M-TABS) 0.5 MG ODT DISSOLVE 1 TABLET ON TONGUE EVERY DAY IN THE MORNING,AND 1/2 TAB AT BEDTIME (Patient taking differently: Take 1 mg by mouth daily) Unknown ??? rosuvastatin (CRESTOR) 40 MG tablet Take 1 tablet (40 mg) by mouth daily Unknown ??? 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 Office Visit [facility] [address] [place] [address] Katiana Read MD [address] [place] [address] Scheduled Referrals Name Type Priority Associated Diagnoses Orde r Schedule Medication Therapy Management Referral Referral Routine Nausea and vomiting, unspecified vomiting type Ordered: 10/16/2022 documented as of this encounter Procedures Procedure Name Priority Date/Time Associated Diagnosis Comments GLUCOSE BY METER Routine 10/17/2022 11:4 0 AM CDT GLUCOSE BY METER Routine 10/17/2022 7:31 AM CDT POTASSIUM Routine 10/17/2022 5:56 AM CDT MAGNESIUM Routine 10/17/2022 5:56 AM CDT GLUCOSE BY METER Routine 10/17/2022 3:10 AM CDT GLUCOSE BY METER Routine 10/16/2022 10:5 5 PM CDT POTASSIUM Timed 10/16/2022 9:31 PM CDT MAGNESIUM Timed 10/16/2022 9:31 PM CDT HEMOGLOBIN A1C Routine 10/16/2022 9:31 PM CDT EKG 12-LEAD, TRACING ONLY Routine 10/16/2022 6:19 PM CDT GLUCOSE BY METER Routine 10/16/2022 5:24 PM CDT POTASSIUM Routine 10/16/2022 3:39 PM CDT MAGNESIUM Routine 10/16/2022 3:39 PM CDT GLUCOSE BY METER Routine 10/16/2022 12:3 2 PM CDT GLUCOSE BY METER Routine 10/16/2022 8:54 AM CDT MAGNESIUM Add-On 10/16/2022 7:06 AM CDT BASIC METABOLIC PANEL Routine 10/16/2022 7:06 AM CDT CBC WITH PLATELETS Routine 10/16/2022 7: 06 AM CDT GLUCOSE BY METER Routine 10/16/2022 3:53 AM CDT GLUCOSE BY METER Routine 10/16/2022 12:5 8 AM CDT GLUCOSE BY METER Routine 10/15/2022 9:39 PM CDT GLUCOSE BY METER Routine 10/15/2022 3:40 PM CDT LACTIC ACID WHOLE BLOOD STAT 10/15/2022 11:55 AM CDT GLUCOSE BY METER STAT 10/15/2022 11:3 0 AM CDT GLUCOSE BY METER STAT 10/15/2022 8:54 AM CDT LACTIC ACID WHOLE BLOOD STAT 10/15/2022 7:53 AM CDT COMPREHENSIVE METABOLIC PANEL STAT 10/15/2022 7:53 AM CDT CBC WITH PLATELETS STAT 10/15/2022 7: 53 AM CDT LACTIC ACID WHOLE BLOOD STAT 10/15/2022 2:14 AM CDT GLUCOSE BY METER STAT 10/15/2022 1:12 AM CDT ENTERIC BACTERIA AND VIRUS PANEL BY PCR STAT 10/15/2022 12:50 AM CDT C. DIFFICILE ANTIGEN AND TOXINS A/B BY ENZYME IMMUNOASSAY STAT 10/15/2022 12:50 AM CDT C. DIFFICILE TOXIN B PCR WITH REFLEX TO C. DIFFICILE ANTIGEN AND TOXINS A/B EIA STAT 10/15/2022 12:50 AM CDT LACTIC ACID WHOLE BLOOD STAT 10/14/2022 11:33 PM CDT UA MACROSCOPIC WITH REFLEX TO MICRO AND CULTURE STAT 10/14/2022 11:[address] ABDOMEN PELVIS W CONTRAST STAT 10/14/2022 10:45 PM CDT OCCULT BLOOD STOOL STAT 10/14/2022 9: 35 PM CDT EXTRA TUBE STAT 10/14/2022 9:04 PM CDT EXTRA RED TOP TUBE STAT 10/14/2022 9: 04 PM CDT EXTRA BLUE TOP TUBE STAT 10/14/2022 9 :04 PM CDT TYPE AND SCREEN, ADULT STAT 9:04 PM CDT PROCALCITONIN Add-On 10/14/2022 9:04 PM CDT MAGNESIUM STAT 10/14/2022 9:04 PM CDT LIPASE STAT 10/14/2022 9:04 PM CDT COMPREHENSIVE METABOLIC PANEL STAT 10/14/2022 9:04 PM CDT ABO/RH TYPE AND SCREEN STAT 9:04 PM CDT CBC WITH PLATELETS STAT 10/14/2022 9: 04 PM CDT EKG 12-LEAD, TRACING ONLY STAT 10/14/2022 8:58 PM CDT documented in this encounter Results * (ABNORMAL) Glucose by meter (10/17/2022 11:40 AM CDT) GLUCOSE BY METER POCT 202(H) 70 - 99 mg/dL 10/17/2022 11:48 AM CDT [facility] POC Comment:Dr/RN Notified Blood, Capillary BLOOD SPECIMEN / Unknown 10/17/2022 11:40 AM CDT 10/17/2022 11:48 AM CDT Provider Unknown LAB - BEAKER POCT [facility] POC [facility] Lab [address] Lab (1st floor, no room number) [place] [address], [place] [phone] * (ABNORMAL) Glucose by meter (10/17/2022 7:31 AM CDT) GLUCOSE BY METER POCT 104(H) 70 - 99 mg/dL 10/17/2022 7:37 AM CDT [facility] POC Blood, Capillary BLOOD SPECIMEN / Unknown 10/17/2022 7:31 AM CDT 10/17/2022 7:37 AM CDT Provider Unknown LAB - BEAKER POCT [facility] POC [facility] [address] Lab (1st floor, no room number) [place] [address], [place] [phone] * Potassium (10/17/2022 5:56 AM CDT) Potassium 3.9 3.4 - 5.3 mmol/L 10/17/2022 6:56 AM CDT [facility] Blood STRUCTURE OF RIGHT HAND / Unknown Venipuncture / Unknown 10/17/2022 5:56 AM CDT 10/17/2022 6:28 AM CDT Janine Del Rosario PA-C LAB - BLOOD ORDER LENA Performing Organization Address City/[facility]/ZIP Co de Phone Number [facility] [address] Lab (1st floor, no room number) [place] [address], [place] [phone] * Magnesium (10/17/2022 5:56 AM CDT) Magnesium 2.0 1.7 - 2.3 mg/dL 10/17/2022 6:56 AM CDT [facility] Blood STRUCTURE OF RIGHT HAND / Unknown Venipuncture / Unknown 10/17/2022 5:56 AM CDT 10/17/2022 6:28 AM CDT Janine Ray Del Rosario PA-C LAB - BLOOD ORDER LENA [facility] Lab [address] Lab (1st floor, no room number) [place] [address], [place] [phone] * (ABNORMAL) Glucose by meter (10/17/2022 3:10 AM CDT) GLUCOSE BY METER POCT 137(H) 70 - 99 mg/dL 10/17/2022 3:16 AM CDT [facility] POC Blood, Capillary BLOOD SPECIMEN / Unknown 10/17/2022 3:10 AM CDT 10/17/2022 3:16 AM CDT Provider Unknown LAB - BEAKER POCT LABORATORY [facility] Lab [address] Lab (1st floor, no room number) [place] [address], [facility] [phone] * (ABNORMAL) Glucose by meter (10/16/2022 10:55 PM CDT) GLUCOSE BY METER POCT 164(H) 70 - 99 mg/dL 10/16/2022 11:02 PM CDT [facility] POC Comment:Dr/RN Notified Blood, Capillary BLOOD SPECIMEN / Unknown 10/16/2022 10:55 PM CDT 10/16/2022 11:02 PM CDT Provider Unknown LAB - BEAKER POCT LABORATORY [facility] Lab [address] Lab (1st floor, no room number) [place] [address], [facility] [phone] * Potassium (10/16/2022 9:31 PM CDT) Potassium 3.8 3.4 - 5.3 mmol/L 10/16/2022 10:21 PM CDT LABORATORY Blood STRUCTURE OF RIGHT UPPER LIMB / Unknown Venipuncture / Unknown 10/16/2022 9:31 PM CDT 10/16/2022 9:36 PM CDT Janine Del Rosario PA-C LAB - BLOOD ORDER LENA [facility] Lab [address] Lab (1st floor, no room number) [place] [address], [facility] [phone] * (ABNORMAL) Magnesium (10/16/2022 9:31 PM CDT) Magnesium 2.4(H) 1.7 - 2.3 mg/dL 10/16/2022 10:21 PM CDT LABORATORY Blood STRUCTURE OF RIGHT UPPER LIMB / Unknown Venipuncture / Unknown 10/16/2022 9:31 PM CDT 10/16/2022 9:36 PM CDT Janine ORTIZ-C LAB - BLOOD ORDER LENA Performing Organization Address City/[facility]/ZIP Co de Phone Number [facility] Lab [address] Lab (1st floor, no room number) [place] [address], [facility] [phone] * (ABNORMAL) Hemoglobin A1c (10/16/2022 9:31 PM CDT) Hemoglobin A1C 6.5(H) <5.7 % 10/16/2022 9:52 PM CDT LABORATORY Comment: Normal <5.7% Prediabetes 5.7-6.4% ?? Diabetes 6.5% or higher Note: Adopted from ADA consensus guidelines. Blood STRUCTURE OF RIGHT UPPER LIMB / Unknown Venipuncture / Unknown 10/16/2022 9:31 PM CDT 10/16/2022 9:36 PM CDT Janine Del Rosario PA-C LAB - BLOOD ORDER LENA [facility] Lab [address] Lab (1st floor, no room number) [place] [address], [facility] [phone] * EKG 12-lead, tracing only (10/16/2022 6:19 PM CDT) Systolic Blood Pressure mmHg RADIOLOGY RESULTS Diastolic Blood Pressure mmHg RADIOLOGY RESULTS Ventricular Rate 79 BPM RAD IOLOGY RESULTS Atrial Rate 79 BPM RADIOLOG Y RESULTS [place] Interval 194 ms RADIOLOG Y RESULTS QRS Duration 96 ms RADIOLO GY RESULTS QT 402 ms RADIOLOGY RESULTS QTc 460 ms RADIOLOGY RESULTS P [place] 74 degrees RADIOLOGY RESULTS R AXIS 5 degrees RADIOLOGY RESULTS T [place] 110 degrees RADIOLOGY RESULTS Interpretation ECG Sinus rhythm Anteroseptal infarct , age undetermined Abnormal ECG Confirmed by MD DENICE, MARILY ([id number]), electronic news gathering editor PAT WOODARD ([id number]) on 10/19/2022 7:46:10 AM RADIOLOGY RESULTS 10/16/2022 6:19 PM CDT 10/19/2022 7:46 AM CDT Janine Schrader Carin ORTIZ-C ECG ORDERABLES RADIOLOGY RESULTS * (ABNORMAL) Glucose by meter (10/16/2022 5:24 PM CDT) GLUCOSE BY METER POCT 144(H) 70 - 99 mg/dL 10/16/2022 5:34 PM CDT LABORATORY POC Blood, Capillary BLOOD SPECIMEN / Unknown 10/16/2022 5:24 PM CDT 10/16/2022 5:34 PM CDT Provider Unknown LAB - BEAKER POCT [facility] LABORAT[facility] POC [facility] Lab [address] Lab (1st floor, no room number) [place] [address] [phone] * (ABNORMAL) Magnesium (10/16/2022 3:39 PM CDT) Magnesium 1.3(L) 1.7 - 2.3 mg/dL 10/16/2022 4:09 PM CDT LABORATORY Blood STRUCTURE OF RIGHT HAND / Unknown Venipuncture / Unknown 10/16/2022 3:39 PM CDT 10/16/2022 3:48 PM CDT Janine Schrader Del Rosario PA-C LAB - BLOOD ORDER LENA [facility] Lab [address] Lab (1st floor, no room number) [place] [address], [facility] [phone] * (ABNORMAL) Potassium (10/16/2022 3:39 PM CDT) Potassium 3.3(L) 3.4 - 5.3 mmol/L 10/16/2022 4:09 PM CDT LABORATORY Blood STRUCTURE OF RIGHT HAND / Unknown Venipuncture / Unknown 10/16/2022 3:39 PM CDT 10/16/2022 3:48 PM CDT Janine Schrader Carin ORTIZ-C LAB - BLOOD ORDER LENA Performing Organization Address City/[facility]/ZIP Co de Phone Number [facility] Lab [address] Lab (1st floor, no room number) [place] [address], [place] [phone] * (ABNORMAL) Glucose by meter (10/16/2022 12:32 PM CDT) GLUCOSE BY METER POCT 263(H) 70 - 99 mg/dL 10/16/2022 12:39 PM CDT LABORATORY POC Blood, Capillary BLOOD SPECIMEN / Unknown 10/16/2022 12:32 PM CDT 10/16/2022 12:39 PM CDT Provider Unknown LAB - BEAKER POCT [facility] Lab [address] Lab (1st floor, no room number) [place] [address], [place] [phone] * (ABNORMAL) Glucose by meter (10/16/2022 8:54 AM CDT) GLUCOSE BY METER POCT 154(H) 70 - 99 mg/dL 10/16/2022 9:01 AM CDT [facility] LAB[facility]AT[facility] POC Blood, Capillary BLOOD SPECIMEN / Unknown 10/16/2022 8:54 AM CDT 10/16/2022 9:01 AM CDT Provider Unknown LAB - BEAKER POCT [facility] LABORATORY POC [facility] Lab [address] Lab (1st floor, no room number) [place] [address], [facility] [phone] * (ABNORMAL) Magnesium (10/16/2022 7:06 AM CDT) Magnesium 1.4(L) 1.7 - 2.3 mg/dL 10/16/2022 2:42 PM CDT LABORATORY Blood STRUCTURE OF RIGHT HAND / Unknown Venipuncture / Unknown 10/16/2022 7:06 AM CDT 10/16/2022 7:19 AM CDT Janine Del Rosario PA-C LAB - BLOOD ORDER LENA Performing Organization Address City/[facility]/ZIP Co de Phone Number LABORATORY [facility] Lab [address] Lab (1st floor, no room number) [place] [address], [facility] [phone] * (ABNORMAL) Basic metabolic panel (10/16/2022 7:06 AM CDT) Sodium 140 136 - 145 mmol/L 10/16/2022 7:42 AM CDT [facility] LAB[facility] Potassium 3.1(L) 3.4 - 5.3 mmol/L 10/16/2022 7:42 AM CDT [facility] LAB[facility] Chloride 104 98 - 107 mmol/L 10/16/2022 7:42 AM CDT [facility] LAB[facility] Carbon Dioxide (CO2) 23 22 - 29 mmol/L 10/16/2022 7:42 AM CDT [facility] LAB[facility] Anion Gap 13 7 - 15 mmol/L 10/16/2022 7:42 AM CDT [facility] LAB[facility] Urea Nitrogen 4.0(L) 8.0 - 23.0 mg/dL 10/16/2022 7:42 AM CDT [facility] LAB[facility] Creatinine 0.89 0.51 - 0.95 mg/dL 10/16/2022 7:42 AM CDT [facility] LAB[facility] Calcium 8.0(L) 8.8 - 10.2 mg/dL 10/16/2022 7:42 AM CDT [facility] LAB[facility] Glucose 152(H) 70 - 99 mg/dL 10/16/2022 7:42 AM CDT [facility] LAB[facility]AT[facility] GFR Estimate 73 >60 mL/min/1.7 3m2 10/16/2022 7:42 AM CDT [facility] LAB[facility]ATORY Comment:eGFR calculated usin 2020 CKD-EPI equation. Blood STRUCTURE OF RIGHT HAND / Unknown Venipuncture / Unknown 10/16/2022 7:06 AM CDT 10/16/2022 7:19 AM CDT Luis Alfonso MD LAB - BLOOD OR DERABLES RH LABORATORY [facility] Lab [address] Lab (1st floor, no room number) [place] [address], [facility] [phone] * (ABNORMAL) CBC with platelets (10/16/2022 7:06 AM CDT) WBC Count 3.5(L) 4.0 - 11.0 10e3/uL 10/16/2022 7:33 AM CDT [facility] LAB[facility] RBC Count 3.67(L) 3.80 - 5.20 10e6/uL 10/16/2022 7:33 AM CDT [facility] LAB[facility] Hemoglobin 11.3(L) 11.7 - 15.7 g/dL 10/16/2022 7:33 AM CDT [facility] LAB[facility] Hematocrit 34.9(L) 35.0 - 47.0 % 10/16/2022 7:33 AM CDT [facility] LAB[facility] MCV 95 78 - 100 fL 10/16/2022 7:33 AM CDT [facility] LAB[facility]AT[facility] MCH 30.8 26.5 - 33.0 pg 10/16/2022 7:33 AM CDT [facility] LAB[facility] MCHC 32.4 31.5 - 36.5 g/dL 10/16/2022 7:33 AM CDT [facility] LAB[facility] RDW 15.1(H) 10.0 - 15.0 % 10/16/2022 7:33 AM CDT [facility] Platelet Count 84(L) 150 - 450 10e3/uL 10/16/2022 7:33 AM CDT [facility] Blood STRUCTURE OF RIGHT HAND / Unknown Venipuncture / Unknown 10/16/2022 7:06 AM CDT 10/16/2022 7:18 AM CDT Luis Alfonso MD LAB - BLOOD OR DERABLES LABORATORY [facility] Lab [address] [employer] Lab (1st floor, no room number) [place] [id number], [place] [phone] * (ABNORMAL) Glucose by meter (10/16/2022 3:53 AM CDT) GLUCOSE BY METER POCT 155(H) 70 - 99 mg/dL 10/16/2022 4:00 AM CDT LABORATORY POC Blood, Capillary BLOOD SPECIMEN / Unknown 10/16/2022 3:53 AM CDT 10/16/2022 4:00 AM CDT Ino Hernandez MD LAB - NOE [facility] POCT LABORATORY [facility] Lab [address] Lab (1st floor, no room number) [place] [address], [place] [phone] * (ABNORMAL) Glucose by meter (10/16/2022 12:58 AM CDT) GLUCOSE BY METER POCT 159(H) 70 - 99 mg/dL 10/16/2022 1:05 AM CDT LABORATORY POC Blood, Capillary BLOOD SPECIMEN / Unknown 10/16/2022 12:58 AM CDT 10/16/2022 1:05 AM CDT Ino Hernandez MD LAB - NOE [place] POCT RH LABORATORY [facility] Lab [address] Lab (1st floor, no room number) [place] [id number], [facility] [phone] * (ABNORMAL) Glucose by meter (10/15/2022 9:39 PM CDT) GLUCOSE BY METER POCT 169(H) 70 - 99 mg/dL 10/15/2022 9:46 PM CDT RH LABORATORY POC Blood, Capillary BLOOD SPECIMEN / Unknown 10/15/2022 9:39 PM CDT 10/15/2022 9:46 PM CDT Ino Hernandez MD LAB - NOE [place] POCT LABORATORY [facility] Lab [address] Lab (1st floor, no room number) [place] [id number], [facility] [phone] * (ABNORMAL) Glucose by meter (10/15/2022 3:40 PM CDT) GLUCOSE BY METER POCT 172(H) 70 - 99 mg/dL 10/15/2022 3:47 PM CDT LABORATORY POC Blood, Capillary BLOOD SPECIMEN / Unknown 10/15/2022 3:40 PM CDT 10/15/2022 3:47 PM CDT Ino Hernandez MD LAB - NOE [place] POCT LABORATORY [facility] Lab [address] Lab (1st floor, no room number) [place] [id number], [facility] [phone] * Lactic acid whole blood (10/15/2022 11:55 AM CDT) Lactic Acid 1.5 0.7 - 2.0 mmol/L 10/15/2022 12:17 PM CDT RH LABORATORY Blood STRUCTURE OF RIGHT HAND / Unknown Venipuncture / Unknown 10/15/2022 11:55 AM CDT 10/15/2022 12:00 PM CDT Brant Herrera DO LAB - BLOOD ORDERABL ES LABORATORY [facility] Lab [address] Lab (1st floor, no room number) [place] [phone], [facility] [phone] * (ABNORMAL) Glucose by meter (10/15/2022 11:30 AM CDT) GLUCOSE BY METER POCT 200(H) 70 - 99 mg/dL 10/15/2022 11:43 AM CDT LABORATORY POC Blood, Capillary BLOOD SPECIMEN / Unknown 10/15/2022 11:30 AM CDT 10/15/2022 11:43 AM CDT Ino TOSCANO - NOE [place]OPE[place] POCT Performing Organization Address [facility]/ZIP Co de Phone Number LABORATORY [facility] Lab [address] Lab (1st floor, no room number) [place] [address], [facility] [phone] * (ABNORMAL) Glucose by meter (10/15/2022 8:54 AM CDT) GLUCOSE BY METER POCT 185(H) 70 - 99 mg/dL 10/15/2022 9:01 AM CDT LABORATORY POC Blood, Capillary BLOOD SPECIMEN / Unknown 10/15/2022 8:54 AM CDT 10/15/2022 9:01 AM CDT Ino Hernandez MD LAB - NOE LOPE[facility] POCT LABORATORY [facility] [address] Lab (1st floor, no room number) [place] [address], [facility] [phone] * Lactic acid whole blood (10/15/2022 7:53 AM CDT) Lactic Acid 1.7 0.7 - 2.0 mmol/L 10/15/2022 8:19 AM CDT [facility] Blood BLOOD SPECIMEN / Unknown Venipuncture / Unknown 10/15/2022 7:53 AM CDT 10/15/2022 8:14 AM CDT Brant Herrera DO LAB - BLOOD ORDERABL ES [facility] LABORAT[facility] [address] [facility] Lab (1st floor, no room number) [place] [address], [facility] [phone] * (ABNORMAL) CBC with platelets (10/15/2022 7:53 AM CDT) WBC Count 4.4 4.0 - 11.0 10e3/uL 10/15/2022 8:29 AM CDT [facility] RBC Count 4.27 3.80 - 5.20 10e6/uL 10/15/2022 8:29 AM CDT [facility] Hemoglobin 13.1 11.7 - 15.7 g/dL 10/15/2022 8:29 AM CDT [facility] Hematocrit 39.4 35.0 - 47.0 % 10/15/2022 8:29 AM CDT [facility] MCV 92 78 - 100 fL 10/15/2022 8:29 AM CDT [facility] MCH 30.7 26.5 - 33.0 pg 10/15/2022 8:29 AM CDT [facility] MCHC 33.2 31.5 - 36.5 g/dL 10/15/2022 8:29 AM CDT [facility] RDW 15.2(H) 10.0 - 15.0 % 10/15/2022 8:29 AM CDT [facility] Platelet Count 125(L) 150 - 450 10e3/uL 10/15/2022 8:29 AM CDT [facility] Blood BLOOD SPECIMEN / Unknown Venipuncture / Unknown 10/15/2022 7:53 AM CDT 10/15/2022 8:16 AM CDT Brant A Sharon DO LAB - BLOOD ORDERABL ES LABORATORY [facility] Lab [address] Lab (1st floor, no room number) [place] [address], [facility] [phone] * (ABNORMAL) Comprehensive metabolic panel (10/15/2022 7:53 AM CDT) Sodium 137 136 - 145 mmol/L 10/15/2022 8:56 AM CDT LABORATORY Potassium 3.6 3.4 - 5.3 mmol/L 10/15/2022 8:56 AM CDT LABORATORY Comment:Specimen slightly he molyzed, potassium may be falsely elevated. Chloride 102 98 - 107 mmol/L 10/15/2022 8:56 AM CDT LABORATORY Carbon Dioxide (CO2) 21(L) 22 - 29 mmol/L 10/15/2022 8:56 AM CDT LABORATORY Anion Gap 14 7 - 15 mmol/L 10/15/2022 8:56 AM CDT LABORATORY Urea Nitrogen 7.5(L) 8.0 - 23.0 mg/dL 10/15/2022 8:56 AM CDT LABORATORY Creatinine 0.86 0.51 - 0.95 mg/dL 10/15/2022 8:56 AM CDT LABORATORY Calcium 7.9(L) 8.8 - 10.2 mg/dL 10/15/2022 8:56 AM CDT LABORATORY Glucose 180(H) 70 - 99 mg/dL 10/15/2022 8:56 AM CDT LABORATORY Alkaline Phosphatase 199(H) 35 - 104 U/L 10/15/2022 8:56 AM CDT LABORATORY AST 44(H) 10 - 35 U/L 10/15/2022 8:56 AM CDT LABORATORY Comment:Specimen is hemolyze d which can falsely elevate AST. Analysis of a non-hemolyzed specimen may result in a lower value. ALT 20 10 - 35 U/L 10/15/2022 8:56 AM CDT LABORATORY Protein Total 6.3(L) 6.4 - 8.3 g/dL 10/15/2022 8:56 AM CDT RH LABORATORY Albumin 3.7 3.5 - 5.2 g/dL 10/15/2022 8:56 AM CDT LABORATORY Bilirubin Total 0.6 <=1.2 mg/dL 10/15/2022 8:56 AM CDT RH LABORATORY GFR Estimate 76 >60 mL/min/1.7 3m2 10/15/2022 8:56 AM CDT RH LABORATORY Comment:eGFR calculated usin g 2020 CKD-EPI equation. Blood BLOOD SPECIMEN / Unknown Venipuncture / Unknown 10/15/2022 7:53 AM CDT 10/15/2022 8:16 AM CDT Brant Herrera DO LAB - BLOOD ORDERABL ES LABORATORY [facility] [email or web address] Lab (1st floor, no room number) [place] [address], [facility] [phone] * (ABNORMAL) Lactic acid whole blood (10/15/2022 2:14 AM CDT) Lactic Acid 5.6(HH) 0.7 - 2.0 mmol/L 10/15/2022 2:26 AM CDT LABORATORY Blood STRUCTURE OF RIGHT HAND / Unknown Venipuncture / Unknown 10/15/2022 2:14 AM CDT 10/15/2022 2:18 AM CDT Elina Reese PA-C LAB - BLOOD ORDER LENA LABORATORY [facility] Lab [email or web address] Lab (1st floor, no room number) [place] [address], [facility] [phone] * (ABNORMAL) Glucose by meter (10/15/2022 1:12 AM CDT) GLUCOSE BY METER POCT 174(H) 70 - 99 mg/dL 10/15/2022 1:18 AM CDT LABORATORY POC Blood, Capillary BLOOD SPECIMEN / Unknown 10/15/2022 1:12 AM CDT 10/15/2022 1:18 AM CDT Brant Herrera DO LAB - BEAKER POCT LABORATORY [facility] Acute Care Lab [address] [facility] Lab (1st floor, no room number) [place] [address], [facility] [phone] * (ABNORMAL) C. difficile Antigen and Toxins A/B by Enzyme Immunoassay (10/15/2022 12:50 AM CDT) C. difficile GDH Antigen Positive(A) Negative OMI 10/15/2022 6:44 AM CDT [facility] C. difficile Toxin Negative Negative OMI 10/15/2022 6:44 AM CDT [facility] Stool RECTAL CONTENTS / Unknown Non-blood Collection / Unknown 10/15/2022 12:50 AM CDT 10/15/2022 1:22 AM CDT Narrative [facility] - 10/15/2022 6:44 AM CDT C. difficile GDH antigen detected and C. difficile toxin not detected by enzyme immunoassay. These results indicate the organism is present and the toxin is absent or below the limit of detection. Results must be interpreted based on clinical findings. Brant Herrera DO LAB - MICRO GENERAL ORDERABLES [facility] Inf. Diseases Diag. Lab [address] [place] [address], [place] [phone] * (ABNORMAL) C. difficile Toxin B PCR with reflex to C. difficile Antigen and Toxins A/B EIA (10/15/2022 12:50 AM CDT) C Difficile Toxin B by PCR Positive( A) Negative 10/15/2022 5:39 AM CDT [facility] Comment: Detection [...] CONTENTS / Unknown Non-blood Collection / Unknown 10/15/2022 12:50 AM CDT 10/15/2022 1:22 AM CDT [facility] - 10/15/2022 5:39 AM CDT [employer] Xpert C. difficile Assay, performed on the [employer] Instrument Systems, is a qualitative in vitro [...] an aid in the diagnosis of CDI. Brant Herrera DO LAB - MICRO GENERAL ORDERABLES [facility] Inf. Diseases Diag. Lab [address] [place] [address], [facility] [phone] * (ABNORMAL) Enteric Bacteria and Virus Panel by DOMINICK Stool (10/15/2022 12:50 AM CDT) Campylobacter group Invalid(I nvalid) Not Detected 10/15/2022 5:27 PM CDT [facility] Comment:Test results not int erpretable. Test credited. Consider submitting a new specimen for repeat testing. Contact the Laboratory if there are questions. Salmonella species Invalid(I nvalid) Not Detected 10/15/2022 5:27 PM CDT [facility] Comment:Test results not int erpretable. Test credited. Consider submitting a new specimen for repeat testing. Contact the Laboratory if there are questions. Shigella species Invalid(I nvalid) Not Detected 10/15/2022 5:27 PM CDT [facility] Comment:Test results not int erpretable. Test credited. Consider submitting a new specimen for repeat testing. Contact the Laboratory if there are questions. Vibrio group Invalid(I nvalid) Not Detected 10/15/2022 5:27 PM CDT [facility] Comment:Test results not int erpretable. Test credited. Consider submitting a new specimen for repeat testing. Contact the Laboratory if there are questions. Rotavirus Invalid(I nvalid) Not Detected 10/15/2022 5:27 PM CDT [facility] Comment:Test results not int erpretable. Test credited. Consider submitting a new specimen for repeat testing. Contact the Laboratory if there are questions. Shiga toxin 1 gene Invalid(I nvalid) Not Detected 10/15/2022 5:27 PM CDT [facility] Comment:Test results not int erpretable. Test credited. Consider submitting a new specimen for repeat testing. Contact the Laboratory if there are questions. Shiga toxin 2 gene Invalid(I nvalid) Not Detected 10/15/2022 5:27 PM CDT [facility] Comment:Test results not int erpretable. Test credited. Consider submitting a new specimen for repeat testing. Contact the Laboratory if there are questions. Norovirus I and II Invalid(I nvalid) Not Detected 10/15/2022 5:27 PM CDT [facility] Comment:Test results not int erpretable. Test credited. Consider submitting a new specimen for repeat testing. Contact the Laboratory if there are questions. Yersinia enterocolitica Invalid(I nvalid) Not Detected 10/15/2022 5:27 PM CDT [facility] Comment:Test results not int erpretable. Test credited. Consider submitting a new specimen for repeat testing. Contact the Laboratory if there are questions. Stool RECTAL CONTENTS / Unknown Non-blood Collection / Unknown 10/15/2022 12:50 AM CDT 10/15/2022 1:22 AM CDT Narrative [facility] - 10/15/2022 5:27 PM CDT Testing performed by multiplexed, qualitative PCR using the [employer] Enteric Pathogens Nucleic Acid Test. Results should [...] encode for Shiga toxins 1 and 2. Elina Reese PA-C LAB - MICRO GENER AL ORDERABLES [facility] Inf. Diseases Diag. Lab [address] [place] [address], [place] [phone] * (ABNORMAL) Lactic acid whole blood (10/14/2022 11:33 PM CDT) [facility] Lactic Acid 5.7(HH) 0.7 - 2.0 mmol/L 10/14/2022 11:50 PM CDT LABORATORY Blood STRUCTURE OF LEFT WRIST REGION / Unknown Venipuncture / Unknown 10/14/2022 11:33 PM CDT 10/14/2022 11:43 PM CDT Elina Reese PA-C LAB - BLOOD ORDER LENA LABORATORY [facility] Lab [address] Lab (1st floor, no room number) [place] [address], [place] [phone] * (ABNORMAL) UA reflex to Microscopic and Culture (10/14/2022 11:30 PM CDT) Color Urine Yellow Colorless, Straw, Light Yellow, Yellow 10/15/2022 12:42 AM CDT LABORATORY Appearance Urine Cloudy(A) Clear 10/16/19 12:42 AM CDT LABORATORY Glucose Urine Negative Negative mg/dL 10/15/2022 12:42 AM CDT LABORATORY Bilirubin Urine Negative Negative 12:42 AM CDT LABORATORY Ketones Urine Trace(A) Negative mg/dL 10/15/2022 12:42 AM CDT LABORATORY Specific [place] Urine 1.005 1.003 - 1.035 OMI 10/15/2022 12:42 AM CDT RH LABORATORY Blood Urine Negative Negative 10/15/2022 12:42 AM CDT LABORATORY pH Urine 7.0 5.0 - 7.0 10/15/2022 12:42 AM CDT LABORATORY Protein Albumin Urine 70(A) Negative mg/dL 10/15/2022 12:42 AM CDT LABORATORY Urobilinogen Urine 4.0(A) Normal, 2.0 mg/dL 10/15/2022 12:42 AM CDT LABORATORY Nitrite Urine Negative Negative 10/15/2022 12:42 AM CDT LABORATORY Leukocyte Esterase Urine Small(A) Negative 10/15/2022 12:42 AM CDT LABORATORY Bacteria Urine Few(A) None Seen /HPF 10/15/2022 12:42 AM CDT LABORATORY RBC Urine 3(H) <=2 /HPF 10/15/2022 12:42 AM CDT LABORATORY WBC Urine 0 <=5 /HPF 10/15/2022 12:42 AM CDT LABORATORY Urine MID-STREAM URINE SPECIMEN / Unknown Non-blood Collection / Unknown 10/14/2022 11:30 PM CDT 10/14/2022 11:44 PM CDT Narrative LABORATORY - 10/15/2022 12:42 AM CDT Urine Culture not indicated Elina Reese PA-C LAB - URINE ORDER LENA LABORATORY [facility] [address] Lab (1st floor, no room number) [place] [address], [facility] [phone] * CT Abdomen Pelvis w Contrast (10/14/2022 10:45 PM CDT) Anatomical Region Laterality Modality Abdomen/Pelvis, SUBRAD CT LAURA DY, UMP CT ABDOMEN PELVIS, RAD CT Computed Tomography 10/14/2022 10:4 5 PM CDT Impressions 10/14/2022 11:38 PM CDT IMPRESSION: 1. ??Nonspecific pancolitis. There is also wall thickening of the terminal ileum. No bowel obstruction. 2. ??Fatty infiltration of the liver. Narrative 10/14/2022 11:38 PM CDT EXAM: CT ABDOMEN PELVIS W CONTRAST LOCATION: [facility] DATE/TIME: 10/14/2022 10:45 PM INDICATION: Generalized abdominal [...] mass. MUSCULOSKELETAL: Degenerative disease in the spine. Procedure Note Jerry Barrientos MD - 10/14/2022 EXAM: CT ABDOMEN PELVIS W CONTRAST LOCATION: [facility] DATE/TIME: 10/14/2022 10:45 PM INDICATION: Generalized abdominal pain. History of pancreatitis. COMPARISON: 01/16/2021. TECHNIQUE: CT scan of the abdomen and pelvis was performed followinginjection of IV contrast. Multiplanar reformats were obtained. Dosereduction techniques were used. CONTRAST: 100 mL Isovue 370 FINDINGS: LOWER CHEST: Normal. HEPATOBILIARY: Diffuse fatty infiltration of the liver. The gallbladder isabsent. PANCREAS: A few pancreatic calcifications. No acute pancreaticinflammation. SPLEEN: Normal. ADRENAL GLANDS: Normal. KIDNEYS/BLADDER: There is no hydronephrosis. A few small renal cysts. BOWEL: There is wall thickening of the entire colon as well as theterminal ileum. No bowel obstruction. No free intraperitoneal gas orfluid. LYMPH NODES: Normal. VASCULATURE: Atherosclerotic calcification of the aorta and its branches.No aneurysm. Left upper quadrant varices as seen previously. PELVIC ORGANS: The uterus is absent. There is no adnexal mass. MUSCULOSKELETAL: Degenerative disease in the spine. IMPRESSION: 1. Nonspecific pancolitis. There is also wall thickening of the terminalileum. No bowel obstruction. 2. Fatty infiltration of the liver. Eilna Reese PA-C IMG CT ORDERABLES * Stool: occult blood (10/14/2022 9:35 PM CDT) Occult Blood Negative Negative OMI 10/14/2022 10:09 PM CDT LABORATORY Stool RECTAL CONTENTS / Unknown Non-blood Collection / Unknown 10/14/2022 9:35 PM CDT 10/14/2022 9:55 PM CDT Elina Reese PA-C LAB - STOOLS DENICE BERGMAN LABORATORY [facility] Lab [address] Lab (1st floor, no room number) [place] [address], [facility] [phone] * Procalcitonin (10/14/2022 9:04 PM CDT) Procalcitonin <0.02 <0.05 ng/mL 10/15/2022 4:01 AM CDT LABORATORY Comment: Interpretation and Recommendations <0.05 ng/mL Normal Very low risk of bacterial infection. Strongly discourage antibiotics. 0.05-0.24 ng/mL Low risk of systemic infection. Local bacterial infection possible. Assess other clinical features of infection. Discourage antibiotics. 0.25-0.49 ng/mL Possible early systemic infection or localized infection Encourage antibiotics only in correct clinical context. Consider obtaining blood cultures or other relevant cultures. Recheck PCT in 6-12 hours to ensure baseline low level. If repeat PCT is rising, consider early systemic infection and consider starting antibiotics. 0.50-1.99 ng/mL Moderate risk of systemic infection. Recommend antibiotics. Evaluate culture results and clinical features to target antibacterial therapy. Obtain blood cultures and other relevant cultures if not done. If empiric antibiotics were started, recheck PCT in: ? 2 days to guide antibiotic de-escalation. ? Discontinue or de-escalate antibiotics when PCT concentration is <80% of peak or abs PCT <0.5. If empiric antibiotics were NOT started, recheck PCT in: ? 6-24 hours to re-evaluate need for antibiotics. ?? 2.00-9.99 ng/mL High risk for progression to severe sepsis. Strongly recommend initiating or continuing antibiotics. Evaluate culture results and clinical features to target antibacterial therapy. Obtain blood cultures and other relevant cultures if not done. Repeat PCT in 2 days to guide antibiotic de-escalation. Consider de-escalating antibiotics when PCT concentration is <80% of peak or abs PCT < 0.5. Greater than or equal to 10 ng/mL Very high likelihood of severe sepsis or septic shock. Strongly recommend initiating or continuing antibiotics. Evaluate culture results and clinical features to target antibacterial therapy. Obtain blood cultures and other relevant cultures if not done. Repeat PCT in 2 days to guide antibiotic de-escalation. Consider de-escalating antibiotics when PCT concentration is <80% of peak or abs PCT < 1.0. Blood BLOOD SPECIMEN / Unknown Venipuncture / Unknown 10/14/2022 9:04 PM CDT 10/14/2022 9:11 PM CDT Brant Herrera DO LAB - BLOOD ORDERABL [facility] Lab [address] Lab (1st floor, no room number) [place] [address], [facility] [phone] * (ABNORMAL) Magnesium (10/14/2022 9:04 PM CDT) [facility] Magnesium 1.6(L) 1.7 - 2.3 mg/dL 10/15/2022 12:55 AM CDT LABORATORY Blood BLOOD SPECIMEN / Unknown Venipuncture / Unknown 10/14/2022 9:04 PM CDT 10/14/2022 9:11 PM CDT García Srivastava MD LAB - BLOOD ORDER LENA LABORATORY [facility] Lab [address] Lab (1st floor, no room number) [place] [address], [facility] [phone] * Adult Type and Screen (10/14/2022 9:04 PM CDT) ABO/RH(D) A POS 10/14/2022 8:57 PM CDT RH BLOOD BANK Antibody Screen Negative Negative 10/14/2022 8:57 PM CDT RH BLOOD BANK SPECIMEN EXPIRATION DATE [id number] 10/14/2022 8:57 PM CDT RH BLOOD BANK Blood BLOOD SPECIMEN / Unknown Venipuncture / Unknown 10/14/2022 9:04 PM CDT 10/14/2022 9:11 PM CDT Elina Reese PA-C LAB - BLOOD BANK TEST ORDER Performing Organization Address City/[facility]/ZIP Co de Phone Number BLOOD BANK [address] [place] [address], [facility] * Extra Red Top Tube (10/14/2022 9:04 PM CDT) Hold Specimen [facility] 10/14/2022 10:16 PM CDT RH LABORATORY Blood BLOOD SPECIMEN / Unknown Venipuncture / Unknown 10/14/2022 9:04 PM CDT 10/14/2022 9:12 PM CDT Elina Reese PA-C LAB - BLOOD ORDER LENA LABORATORY [facility] [address] Lab (1st floor, no room number) [place] [address], [facility] [phone] * Extra Blue Top Tube (10/14/2022 9:04 PM CDT) Hold Specimen [facility] 10/14/2022 10:16 PM CDT LABORATORY Blood BLOOD SPECIMEN / Unknown Venipuncture / Unknown 10/14/2022 9:04 PM CDT 10/14/2022 9:11 PM CDT Elina Mary Ann ORTIZ-C LAB - BLOOD ORDER LENA LABORATORY [facility] [address] Lab (1st floor, no room number) [place] [address], [facility] [phone] * Lipase (10/14/2022 9:04 PM CDT) Lipase 17 13 - 60 U/L 10/14/2022 9:32 PM CDT LABORATORY Blood BLOOD SPECIMEN / Unknown Venipuncture / Unknown 10/14/2022 9:04 PM CDT 10/14/2022 9:11 PM CDT Elina ORTIZ-C LAB - BLOOD ORDER LENA LABORATORY [facility] [address] [facility] Lab (1st floor, no room number) [place] [id number], [facility] [phone] * (ABNORMAL) Comprehensive metabolic panel (10/14/2022 9:04 PM CDT) Sodium 138 136 - 145 mmol/L 10/14/2022 9:35 PM CDT RH LABORATORY Potassium 3.8 3.4 - 5.3 mmol/L 10/14/2022 9:35 PM CDT RH LABORATORY Chloride 98 98 - 107 mmol/L 10/14/2022 9:35 PM CDT RH LABORATORY Carbon Dioxide (CO2) 19(L) 22 - 29 mmol/L 10/14/2022 9:35 PM CDT RH LABORATORY Anion Gap 21(H) 7 - 15 mmol/L 10/14/2022 9:35 PM CDT RH LABORATORY Urea Nitrogen 8.9 8.0 - 23.0 mg/dL 10/14/2022 9:35 PM CDT RH LABORATORY Creatinine 0.88 0.51 - 0.95 mg/dL 10/14/2022 9:35 PM CDT LABORATORY Calcium 8.4(L) 8.8 - 10.2 mg/dL 10/14/2022 9:35 PM CDT LABORATORY Glucose 171(H) 70 - 99 mg/dL 10/14/2022 9:35 PM CDT LABORATORY Alkaline Phosphatase 245(H) 35 - 104 U/L 10/14/2022 9:35 PM CDT LABORATORY AST 56(H) 10 - 35 U/L 10/14/2022 9:35 PM CDT LABORATORY Comment:Specimen is hemolyze d which can falsely elevate AST. Analysis of a non-hemolyzed specimen may result in a lower value. ALT 25 10 - 35 U/L 10/14/2022 9:35 PM CDT LABORATORY Protein Total 6.8 6.4 - 8.3 g/dL 10/14/2022 9:35 PM CDT LABORATORY Albumin 4.0 3.5 - 5.2 g/dL 10/14/2022 9:35 PM CDT LABORATORY Bilirubin Total 0.4 <=1.2 mg/dL 10/14/2022 9:35 PM CDT LABORATORY GFR Estimate 74 >60 mL/min/1.7 3m2 10/14/2022 9:35 PM CDT LABORATORY Comment:eGFR calculated usin 2020 CKD-EPI equation. Blood BLOOD SPECIMEN / Unknown Venipuncture / Unknown 10/14/2022 9:04 PM CDT 10/14/2022 9:11 PM CDT Elina Reese PA-C LAB - BLOOD ORDER LENA LABORATORY [facility] [address] Lab (1st floor, no room number) [place] [address], [facility] [phone] * (ABNORMAL) CBC (platelets, no diff) (10/14/2022 9:04 PM CDT) WBC Count 3.8(L) 4.0 - 11.0 10e3/uL 10/14/2022 9:14 PM CDT RH LABORATORY RBC Count 4.65 3.80 - 5.20 10e6/uL 10/14/2022 9:14 PM CDT RH LABORATORY Hemoglobin 14.4 11.7 - 15.7 g/dL 10/14/2022 9:14 PM CDT RH LABORATORY Hematocrit 42.6 35.0 - 47.0 % 10/14/2022 9:14 PM CDT RH LABORATORY MCV 92 78 - 100 fL 10/14/2022 9:14 PM CDT RH LABORATORY MCH 31.0 26.5 - 33.0 pg 10/14/2022 9:14 PM CDT RH LABORATORY MCHC 33.8 31.5 - 36.5 g/dL 10/14/2022 9:14 PM CDT RH LABORATORY RDW 15.2(H) 10.0 - 15.0 % 10/14/2022 9:14 PM CDT RH LABORATORY Platelet Count 146(L) 150 - 450 10e3/uL 10/14/2022 9:14 PM CDT RH LABORATORY Blood BLOOD SPECIMEN / Unknown Venipuncture / Unknown 10/14/2022 9:04 PM CDT 10/14/2022 9:11 PM CDT Elina Reese PA-C LAB - BLOOD ORDER LENA RH LABORATORY [facility] Lab [address] Lab (1st floor, no room number) [place] [address] [phone] * EKG 12 lead (10/14/2022 8:58 PM CDT) Systolic Blood Pressure mmHg RADIOLOGY RESULTS Diastolic Blood Pressure mmHg RADIOLOGY RESULTS Ventricular Rate 90 BPM RAD IOLOGY RESULTS Atrial Rate 90 BPM RADIOLOG Y RESULTS [place] Interval 230 ms RADIOLOG Y RESULTS QRS Duration 106 ms RADIOLO GY RESULTS QT 410 ms RADIOLOGY RESULTS QTc 501 ms RADIOLOGY RESULTS P [place] 65 degrees RADIOLOGY RESULTS R AXIS 40 degrees RADIOLOGY RESULTS T [place] 142 degrees RADIOLOGY RESULTS Interpretation ECG Sinus rhythm with 1st degree A-V block ST & T wave abnormality, consider anterolateral ischemia Prolonged QT Abnormal ECG When compared with ECG of 08-APR-2021 15:17, [place] interval has increased Nonspecific T wave abnormality, worse in Inferior leads T wave inversion now evident in Anterior leads RADIOLOGY RESULTS 10/14/2022 8:58 PM CDT Elina Reese PA-C ECG ORDERABLES RADIOLOGY RESULTS documented in this encounter Visit Diagnoses Diagnosis Nausea and vomiting, unspecified vomiting type- Primary Pancolitis (H) [place]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 difficile colitis Intestinal infection due to clostridium difficile Pancolitis (H) [place] ulcerative (chronic) colitis documented in this encounter Admitting Diagnoses Diagnosis Nausea and vomiting, unspecified vomiting type documented in this encounter Administered Medications Inactive Administered Medications - up to 3 most recent administrations Medication Order MAR Action Action Date Dose Rate Site 0.9% sodium chloride BOLUS Intravenous, 1,000 mL, ONCE, at 1,000 mL/hr, Administer over 1 Hours, On Zenaida 10/14/22 at 2100, For 1 dose $New Bag 10/14/2022 9:04 PM CDT 1,000 mLs 1000 mL/hr acetaminophen (TYLENOL) tablet 975 mg 975 mg, Oral, 3 TIMES DAILY, First dose (after last modification) on Tue10/17/22 at 1400, Maximum acetaminophen dose from all sources = 75 mg/kg/day not to exceed 4 grams/day. amLODIPine (NORVASC) tablet 10 mg 10 mg, Oral, DAILY, First dose on Tue10/15/22 at 1155 $Given 10/17/2022 7:50 AM CDT 10 mg $Given 10/16/2022 8:58 AM CDT 10 mg $Given 10/15/2022 1:14 PM CDT 10 mg brexpiprazole (REXULTI) tablet 2 mg 2 mg, Oral, DAILY, First dose on Tue10/16/22 at 1800 $Given 10/17/2022 7:49 AM CDT 2 mg $Given 10/16/2022 7:52 PM CDT 2 mg buprenorphine HCl-naloxone HCl (SUBOXONE) 2-0.5 MG per film 1 Film 1 Film, Sublingual, 3 TIMES DAILY, First dose on Tue10/15/22 at 1055, Give SUBLINGUAL. Place under the tongue near the base on right or left side and leave until completely dissolved. Cutting film not recommended. Patient should not swallow, chew, or move film. Patient should not eat/drink until film is completely dissolved. $Given 10/17/2022 7:51 AM CDT 1 Film $Given 10/16/2022 7:49 PM CDT 1 Film $Given 10/16/2022 1:30 PM CDT 1 Film calcium carbonate 500 mg (elemental) (OSCAL) tablet 500 mg 500 mg, Oral, 2 TIMES DAILY WITH MEALS, First dose (after last reorder) on Tue10/15/22 at 1800, Each tablet = 500 mg elemental calcium = 1250 mg calcium carbonate. $Given 10/17/2022 7:50 AM CDT 500 mg $Given 10/16/2022 5:17 PM CDT 500 mg $Given 10/16/2022 8:59 AM CDT 500 mg clonazePAM (klonoPIN) tablet 1 mg 1 mg, Oral, 2 TIMES DAILY, First dose on Tue10/16/22 at 2000 $Given 10/17/2022 7:48 AM CDT 1 mg $Given 10/16/2022 7:49 PM CDT 1 mg colestipol (COLESTID) tablet 1 g 1 g, Oral, 2 TIMES DAILY, First dose on Tue10/16/22 at 2000, Other drugs should be taken 1 hr before or 4 hr after colestipol. Swallow TAB whole; DO NOT CRUSH, CUT, or CHEW. $Given 10/17/2022 7:49 AM CDT 1 g $Given 10/16/2022 7:50 PM CDT 1 g desvenlafaxine (PRISTIQ) 24 hr tablet 150 mg 150 mg, Oral, DAILY, First dose (after last modification) on Tue10/15/22 at 1155, DO NOT CRUSH $Given 10/17/2022 7:49 AM CDT 150 mg $Given 10/16/2022 8:58 AM CDT 150 mg $Given 10/15/2022 1:15 PM CDT 150 mg dextrose 50 % injection 25-50 mL 25-50 mL, Intravenous, EVERY 15 MIN PRN, low blood sugar, Administer over 1-5 Minutes, Starting on Tue10/15/22 at 0033, Use if have IV access, BG less [...] Vesicant. fenofibrate (LOFIBRA) tablet 54 mg 54 mg, Oral, DAILY, First dose (after last reorder) on Tue10/15/22 at 1530 $Given 10/17/2022 7:50 AM CDT 54 mg $Given 10/16/2022 8:59 AM CDT 54 mg $Given 10/15/2022 5:06 PM CDT 54 mg ferrous sulfate (FEROSUL) tablet 650 mg 650 mg, Oral, DAILY WITH BREAKFAST, First dose on Tue10/16/22 at 0800, Absorbed best on an empty stomach. If stomach upset occurs, can take with meals. $Given 10/17/2022 7:49 AM CDT 650 mg $Given 10/16/2022 8:59 AM CDT 650 mg glucagon injection 1 mg 1 mg, Subcutaneous, EVERY 15 MIN PRN, low blood sugar, May repeat x 1 only, Starting on Tue10/15/22 at 0033, May give SQ or IM. ONLY use glucagon IF patient has NO IV access AND is UNABLE to swallow AND blood glucose is LESS than or EQUAL to 50 mg/dL. glucose gel 15-30 g 15-30 g, Oral, EVERY 15 MIN PRN, low blood sugar, Starting on Tue10/15/22 at 0033, Give first dose for initial blood glucose [...] juice on I and O flowsheet. HYDROmorphone (PF) (DILAUDID) injection 0.3 mg 0.3 mg, Intravenous, EVERY 4 HOURS PRN, severe pain, Starting on Tue10/15/22 at 1352 $Given 10/16/2022 3:54 PM CDT 0.3 mg $Given 10/16/2022 5:09 AM CDT 0.3 mg $Given 10/16/2022 1:18 AM CDT 0.3 mg HYDROmorphone (PF) (DILAUDID) injection 0.5 mg 0.5 mg, Intravenous, ONCE, On Tue10/14/22 at 2135, For 1 dose $Given 10/14/2022 9:33 PM CDT 0.5 mg HYDROmorphone (PF) (DILAUDID) injection 0.5 mg 0.5 mg, Intravenous, ONCE, On Tue10/14/22 at 2210, For 1 dose $Given 10/14/2022 10:07 PM CDT 0.5 mg HYDROmorphone (PF) (DILAUDID) injection 0.5 mg 0.5 mg, Intravenous, ONCE, On Tue10/14/22 at 2320, For 1 dose $Given 10/14/2022 11:18 PM CDT 0.5 mg hydrOXYzine (ATARAX) tablet 25 mg 25 mg, Oral, EVERY 6 HOURS PRN, anxiety, Starting on Tue10/15/22 at 0033 $Given 10/15/2022 1:13 AM CDT 25 mg insulin aspart (NovoLOG) injection (RAPID ACTING) 1-7 Units, Subcutaneous, 3 TIMES DAILY BEFORE MEALS, First dose on Tue10/15/22 at 0730, Correction Scale - MEDIUM INSULIN RESISTANCE DOSING [...] 30 minutes of start of meal. $Given 10/16/2022 12:39 PM CDT 3 Units $Given 10/16/2022 9:01 AM CDT 1 Units $Given 10/15/2022 5:07 PM CDT 1 Units insulin aspart (NovoLOG) injection (RAPID ACTING) 1-5 Units, Subcutaneous, AT BEDTIME, First dose on Tue10/15/22 at 0035, MEDIUM INSULIN RESISTANCE DOSING Do Not give [...] 30 minutes of start of meal. insulin aspart (NovoLOG) injection (RAPID ACTING) 1-7 Units, Subcutaneous, 3 TIMES DAILY BEFORE MEALS, First dose on Tue10/16/22 at 1800, Correction Scale - MEDIUM INSULIN [...] 30 minutes of start of meal. $Given 10/17/2022 11:58 AM CDT 2 Units insulin glargine (LANTUS PEN) injection 5 Units 5 Units, Subcutaneous, AT BEDTIME, First dose on Tue10/16/22 at 2200 $Given 10/16/2022 11:08 PM CDT 5 Units iopamidol (ISOVUE-370) solution 500 mL 500 mL, Intravenous, ONCE, On Tue10/14/22 at 2240, For 1 dose $Given 10/14/2022 10:43 PM CDT 100 mLs lactobacillus rhamnosus (GG) (CULTURELL) capsule 1 capsule 1 capsule, Oral, 2 TIMES DAILY, First dose on Tue10/15/22 at 1430, Administer at least 2 hours before or after oral antibiotics. Capsules may be opened. $Given 10/17/2022 9:55 AM CDT 1 capsu le $Given 10/16/2022 7:49 PM CDT 1 capsule $Given 10/15/2022 9:31 PM CDT 1 capsule levothyroxine (SYNTHROID/LEVOTHROID) tablet 350 mcg 350 mcg, Oral, DAILY, First dose on Tue10/15/22 at 1100, Separate oral administration of iron- or calcium-containing products and levothyroxine by at least 4 hours. $Given 10/17/2022 7:49 AM CDT 350 mcg $Given 10/16/2022 9:00 AM CDT 350 mcg $Given 10/15/2022 11:45 AM CDT 350 mcg Lidocaine (LIDOCARE) 4 % Patch 1 patch 1 patch, Transdermal, EVERY 24 HOURS 0800, Administer over 12 Hours, First dose on Tue10/17/22 at 0800, Reminder: Remove previous patch before applying new patch. NEVER APPLY HEAT OVER PATCH which increases absorption and may lead to local anesthetic toxicity. Do not apply over area where liposomal bupivacaine was injected for 96 hours post injection. lidocaine patch in PLACE First dose on Tue10/17/22 at 0800, NEVER APPLY HEAT OVER PATCH which will increase absorption and may lead to risk of local anesthetic toxicity. Do not apply over area where liposomal bupivacaine injected for 96 hours. magnesium sulfate 4 g in 100 mL sterile water intermittent infusion 4 g, Intravenous, Administer over 120 Minutes, at 50 mL/hr, ONCE, On Tue10/16/22 at 1630, For 1 dose, Magnesium level 1.1-1.5 mg/dL. Administer 4 gm magnesium IV x 1 dose and recheck magnesium level 2-4 hours AFTER the last dose is infused. Ordered from the Magnesium replacement order set. $New Bag 10/16/2022 4:47 PM CDT 4 g 50 mL/hr meclizine (ANTIVERT) tablet 25 mg 25 mg, Oral, EVERY 6 HOURS SCHEDULED, First dose on Tue10/16/22 at 1800 $Given 10/17/2022 11:57 AM CDT 25 mg $Given 10/17/2022 5:48 AM CDT 25 mg $Given 10/16/2022 11:12 PM CDT 25 mg methocarbamol (ROBAXIN) tablet 500-1,000 mg 500-1,000 mg, Oral, 4 TIMES DAILY PRN, muscle spasms, Starting on Tue10/15/22 at 0033 $Given 10/16/2022 6:07 PM CDT 1,000 mg $Given 10/15/2022 2:52 AM CDT 1,000 mg metoprolol tartrate (LOPRESSOR) tablet 25 mg 25 mg, Oral, 2 TIMES DAILY, First dose on Tue10/15/22 at 1100 $Given 10/17/2022 7:49 AM CDT 25 mg $Given 10/16/2022 7:49 PM CDT 25 mg $Given 10/16/2022 9:01 AM CDT 25 mg naloxone (NARCAN) injection 0.2 mg 0.2 mg, Intravenous, EVERY 2 MIN PRN, opioid reversal, Starting on Tue10/16/22 at 1747, Administer intravenous route when available and notify [...] 2 MIN PRN, opioid reversal, Starting on 10/16/22 at 1747, Administer intramuscular if an intravenous route is [...] 2 MIN PRN, opioid reversal, Starting on 10/16/22 at 1747, Administer intravenous route when available and notify [...] 2 MIN PRN, opioid reversal, Starting on 10/16/22 at 1747, Administer intramuscular if an intravenous route is [...] 6 HOURS PRN, nausea, vomiting, Starting on 10/15/22 at 0033, This is Step 1 of nausea and vomiting management. If nausea not resolved in 15 minutes, go to Step 2 prochlorperazine (COMPAZINE). With dry hands, peel back foil backing and gently remove tablet. Do not push oral disintegrating tablet through foil backing. Administer immediately on tongue and oral disintegrating tablet dissolves in seconds, then swallow with saliva. Liquid not required. $Given 10/16/2022 9:16 AM CDT 4 mg $Given 10/15/2022 5:58 AM CDT 4 mg ondansetron (ZOFRAN) injection 4 mg 4 mg, Intravenous, ONCE, Administer over 2-5 Minutes, On Zenaida 10/14/22 at 2330, For 1 dose, Irritant. $Given 10/14/2022 11:31 PM CDT 4 mg ondansetron (ZOFRAN) injection 4 mg 4 mg, Intravenous, EVERY 6 HOURS PRN, nausea, vomiting, Administer over 2-5 Minutes, Starting on 10/15/22 at 0033, Give IF patient unable to tolerate oral medication. This is Step 1 of nausea and vomiting management. If nausea not resolved in 15 minutes, go to Step 2 prochlorperazine (COMPAZINE). Irritant. $Given 10/16/2022 5:09 AM CDT 4 mg $Given 10/15/2022 9:31 PM CDT 4 mg ondansetron (ZOFRAN) injection 4 mg 4 mg, Intravenous, ONCE, Administer over 2-5 Minutes, On Tue10/15/22 at 0005, For 1 dose, Irritant. $Given 10/15/2022 12:11 AM CDT 4 mg oxyCODONE (ROXICODONE) tablet 5 mg 5 mg, Oral, EVERY 4 HOURS PRN, severe pain, Starting on Tue10/15/22 at 0033, May use concomitant with non-opioid analgesics. $Given 10/17/2022 3:17 AM CDT 5 mg $Given 10/16/2022 11:09 PM CDT 5 mg $Given 10/16/2022 6:07 PM CDT 5 mg pantoprazole (PROTONIX) EC tablet 40 mg 40 mg, Oral, DAILY, First dose on Tue10/16/22 at 1800, DO NOT CRUSH. $Given 10/17/2022 7:50 AM CDT 40 mg $Given 10/16/2022 6:07 PM CDT 40 mg potassium chloride ER (KLOR-CON M) CR tablet 40 mEq 40 mEq, Oral, ONCE, On Tue10/16/22 at 1630, For 1 dose, Potassium level 3.1 - 3.4 mmol/L Ordered from the Potassium replacement order set. DO NOT CRUSH, Potassium Replacement: Potassium level 3.1-3.4 mmol/L, Recheck: Potassium level 4 hours AFTER last oral dose $Given 10/16/2022 5:17 PM CDT 40 mEq prochlorperazine (COMPAZINE) injection 5 mg 5 mg, Intravenous, EVERY 6 HOURS PRN, nausea, vomiting, Administer over 1-2 Minutes, Starting on Tue10/15/22 at 0236 $Given 10/15/2022 9:15 AM CDT 5 mg prochlorperazine (COMPAZINE) suppository 25 mg 25 mg, Rectal, EVERY 12 HOURS PRN, nausea, vomiting, Starting on Tue10/15/22 at 0236 prochlorperazine (COMPAZINE) tablet 5 mg 5 mg, Oral, EVERY 6 HOURS PRN, nausea, vomiting, Starting on Tue10/15/22 at 0236 $Given 10/16/2022 1:30 PM CDT 5 m g $Given 10/15/2022 5:05 PM CDT 5 mg $Given 10/15/2022 2:52 AM CDT 5 mg risperiDONE (risperDAL M-TABS) ODT tab 0.5 mg 0.5 mg, Oral, EVERY MORNING, First dose on Tue10/15/22 at 1100 $Given 10/15/2022 11:45 AM CDT 0.5 mg risperiDONE (risperDAL M-TABS) ODT tab 1 mg 1 mg, Oral, EVERY MORNING, First dose (after last modification) on Tue10/16/22 at 0800 $Given 10/17/2022 7:48 AM CDT 1 mg $Given 10/16/2022 8:59 AM CDT 1 mg rosuvastatin (CRESTOR) tablet 40 mg 40 mg, Oral, DAILY, First dose on Tue10/17/22 at 0800 $Given 10/17/2022 7:49 AM CDT 40 mg scopolamine (TRANSDERM) 72 hr patch 1 patch 1 patch, Transdermal, EVERY 72 HOURS, Administer over 72 Hours, First dose on 10/16/22 at 1430, Apply patch to skin, behind ear. Remove every 72 hours. DO NOT CUT PATCH. If dose is for a half or quarter patch, RN to remove only half or quarter of the backing. Each 1.5 mg patch delivers 1 mg of scopolamine. Reminder: Remove previous patch before applying new patch. $Patch/Med Applied 10/16/2022 3:52 PM CDT 1 patch Behind Left Ear scopolamine (TRANSDERM-SCOP) Patch in Place First dose on 10/16/22 at 1430, Chart every shift, confirming that patch is still in place on patient (no barcode scan needed). See patch order for dose information. sodium chloride (PF) 0.9% PF flush 100 mL 100 mL, Intravenous, ONCE, On Zenaida 10/14/22 at 2240, For 1 dose $Given 10/14/2022 10:43 PM CDT 65 mLs sodium chloride 0.9% infusion at 125 mL/hr, Intravenous, CONTINUOUS, Starting on Tue10/15/22 at 0000, Until Tue10/17/22 at 1005 $New Bag 10/17/2022 3:19 AM CDT 125 mL/hr $New Bag 10/16/2022 9:23 PM CDT 125 mL/hr $New Bag 10/16/2022 1:31 PM CDT 125 mL/hr sodium chloride 0.9% infusion at 150 mL/hr, Intravenous, ONCE, 1 dose, On Tue10/15/22 at 0000 $New Bag 10/15/2022 12:11 AM CDT 15 0 mL/hr vancomycin (VANCOCIN) capsule 125 mg STAT, 125 mg, Oral, 4 TIMES DAILY, First dose on Tue10/15/22 at 1200, Indications: Clostridioides difficile $Given 10/17/2022 11:57 AM CDT 125 mg $Given 10/17/2022 7:50 AM CDT 125 mg $Given 10/16/2022 7:50 PM CDT 125 mg zolpidem (AMBIEN) half-tab 2.5 mg 2.5 mg, Oral, AT BEDTIME PRN, sleep, Starting on 10/16/22 at 1530 $Given 10/16/2022 11:09 PM CDT 2.5 mg documented in this encounter Active and Recently Administered Medications Times are shown in CDT. Scheduled Medication Order 10/15/2022 10/16/2022 10/17/2022 acetaminophen (TYLENOL) tablet 975 mg 975 mg, Oral, 3 TIMES DAILY, First dose (after last modification) on Tue10/17/22 at 1400, Maximum acetaminophen dose from all sources = 75 mg/kg/day not to exceed 4 grams/day. 1400 (Canceled Entry - Provider: Orders Generic Provider - Comment: Automatically canceled at discontinue of medication order) amLODIPine (NORVASC) tablet 10 mg 10 mg, Oral, DAILY, First dose on Tue10/15/22 at 1155 1314 ($Given - Provider: Juany Petit RN) 0858 ($Given - Provider: Shane Mcclure RN) 0750 ($Given - Provider: Shane Mcclure RN) brexpiprazole (REXULTI) tablet 2 mg 2 mg, Oral, DAILY, First dose on Tue10/16/22 at 1800 1952 ($Given - Provider: Will Andrews RN) 0749 ($Given - Provider: Shane Mcclure, ZITA) buprenorphine HCl-naloxone HCl (SUBOXONE) 2-0.5 MG per film 1 Film 1 Film, Sublingual, 3 TIMES DAILY, First dose on Tue10/15/22 at 1055, Give SUBLINGUAL. Place under the tongue near the base on right or left side and leave until completely dissolved. Cutting film not recommended. Patient should not swallow, chew, or move film. Patient should not eat/drink until film is completely dissolved. 1145 ($Given - Provider: Prachi Bajwa RN)1706 ($Given - Provider: Carmel Gunderson RN)2018 ($Given - Provider: Evi Gonzalez RN) 0858 ($Given - Provider: Shane Mcclure RN)1330 ($Given - Provider: Shane Mcclure, ZITA)1949 ($Given - Provider: Will Andrews RN) 0751 ($Given - Provider: Shane Mcclure RN)1400 (Canceled Entry - Provider: Orders Generic Provider - Comment: Automatically canceled at discontinue of medication order) calcium carbonate 500 mg (elemental) (OSCAL) tablet 500 mg 500 mg, Oral, 2 TIMES DAILY WITH MEALS, First dose (after last reorder) on Tue10/15/22 at 1800, Each tablet = 500 mg elemental calcium = 1250 mg calcium carbonate. 1854 ($Given - Provider: Carmel Gunderson RN) 0859 ($Given - Provider: Shane Mcclure RN)1717 ($Given - Provider: Roger Wetzel RN) 0750 ($Given - Provider: Shane Mcclure RN) clonazePAM (klonoPIN) tablet 1 mg 1 mg, Oral, 2 TIMES DAILY, First dose on Tue10/16/22 at 2000 1949 ($Given - Provider: Will Andrews RN) 0748 ($Given - Provider: Shane Mcclure RN) colestipol (COLESTID) tablet 1 g 1 g, Oral, 2 TIMES DAILY, First dose on Tue10/16/22 at 2000, Other drugs should be taken 1 hr before or 4 hr after colestipol. Swallow TAB whole; DO NOT CRUSH, CUT, or CHEW. 1950 ($Given - Provider: Will Andrews, ZITA) 0749 ($Given - Provider: Shane Mcclure, ZITA) desvenlafaxine (PRISTIQ) 24 hr tablet 150 mg 150 mg, Oral, DAILY, First dose (after last modification) on Tue10/15/22 at 1155, DO NOT CRUSH 1315 ($Given - Provider: Juany Petit, ZITA) 0858 ($Given - Provider: Shane Mcclure, ZITA) 0749 ($Given - Provider: Shane Mcclure, ZITA) fenofibrate (LOFIBRA) tablet 54 mg 54 mg, Oral, DAILY, First dose (after last reorder) on Tue10/15/22 at 1530 1706 ($Given - Provider: Carmel Gunderson RN) 0859 ($Given - Provider: Shane Mcclure, ZITA) 0750 ($Given - Provider: Shane Mcclure RN) ferrous sulfate (FEROSUL) tablet 650 mg 650 mg, Oral, DAILY WITH BREAKFAST, First dose on Tue10/16/22 at 0800, Absorbed best on an empty stomach. If stomach upset occurs, can take with meals. 0859 ($Given - Provider: Shane Mcclure RN) 0749 ($Given - Provider: Shane Mcclure RN) insulin aspart (NovoLOG) injection (RAPID ACTING) 1-7 Units, Subcutaneous, 3 TIMES DAILY BEFORE MEALS, First dose on Tue10/15/22 at 0730, Correction Scale - MEDIUM INSULIN RESISTANCE DOSING [...] within 30 minutes of start of meal. 0857 ($Given - Provider: Juany Petit RN - Comment: BS: 185)1131 ($Given - Provider: Prachi Bajwa RN - Comment: ot 200)1707 ($Given - Provider: Carmel Gunderson RN - Comment: bg 172) 0901 ($Given - Provider: Shane Mcclure RN)1239 ($Given - Provider: Shane Mcclure RN - Comment: BG 263)1755 (Not Given - Provider: Roger Wetzel RN - Reason: Patient/family refused) 0757 (Not Given - Provider: Shane Mcclure RN - Reason: Order parameters not met)1200 (Not Given - Provider: Shane Mcclure RN - Reason: Other - Comment: duplicate order) insulin aspart (NovoLOG) injection (RAPID ACTING) 1-5 Units, Subcutaneous, AT BEDTIME, First dose on Tue10/15/22 at 0035, MEDIUM INSULIN RESISTANCE DOSING Do Not give [...] within 30 minutes of start of meal. 0112 (Not Given - Provider: Cindy Tobar RN - Reason: Order parameters not met)2139 (Not Given - Provider: Evi Gonzalez RN - Reason: Order parameters not met - Comment: 169 POCT) 2307 (Not Given - Provider: Will Andrews RN - Reason: Order parameters not met) insulin aspart (NovoLOG) injection (RAPID ACTING) 1-7 Units, Subcutaneous, 3 TIMES DAILY BEFORE MEALS, First dose on Tue10/16/22 at 1800, Correction Scale - MEDIUM INSULIN [...] within 30 minutes of start of meal. 1755 (Not Given - Provider: Roger Wetzel RN - Reason: Patient/family refused) 0757 (Not Given - Provider: Shane Mcclure RN - Reason: Order parameters not met)1158 ($Given - Provider: Shane Mcclure RN) insulin aspart (NovoLOG) injection (RAPID ACTING) 1-5 Units, Subcutaneous, AT BEDTIME, First dose on 10/16/22 at 2200, MEDIUM INSULIN RESISTANCE DOSING Do [...] within 30 minutes of start of meal. 2307 (Not Given - Provider: Will Andrews RN - Reason: Order parameters not met) insulin glargine (LANTUS PEN) injection 5 Units 5 Units, Subcutaneous, AT BEDTIME, First dose on 10/16/22 at 2200 2308 ($Given - Provider: Will Andrews RN) lactobacillus rhamnosus (GG) (CULTURELL) capsule 1 capsule 1 capsule, Oral, 2 TIMES DAILY, First dose on Tue10/15/22 at 1430, Administer at least 2 hours before or after oral antibiotics. Capsules may be opened. 1500 ($Given - Provider: Trell Bowen RN)2131 ($Given - Provider: Evi Gonzalez RN) 1659 (Canceled Entry - Provider: Roger Wetzel RN)1949 ($Given - Provider: Will Andrews RN) 0955 ($Given - Provider: Shane Mcclure RN - Comment: Had to be given seperate from Antibiotic) levothyroxine (SYNTHROID/LEVOTHROID) tablet 350 mcg 350 mcg, Oral, DAILY, First dose on Tue10/15/22 at 1100, Separate oral administration of iron- or calcium-containing products and levothyroxine by at least 4 hours. 1145 ($Given - Provider: Prachi Bajwa, ZITA) 0900 ($Given - Provider: Shane Mcclure RN) 0749 ($Given - Provider: Shane Mcclure RN) Lidocaine (LIDOCARE) 4 % Patch 1 patch(Linked Group 1) 1 patch, Transdermal, EVERY 24 HOURS 0800, Administer over 12 Hours, First dose on 10/17/22 at 0800, Reminder: Remove previous patch before applying new patch. NEVER APPLY HEAT OVER PATCH which increases absorption and may lead to local anesthetic toxicity. Do not apply over area where liposomal bupivacaine was injected for 96 hours post injection. 0758 (Not Given - Provider: Shane Mcclure RN - Reason: Patient/family refused) lidocaine patch in PLACE(Linked Group 1) First dose on 10/17/22 at 0800, NEVER APPLY HEAT OVER PATCH which will increase absorption and may lead to risk of local anesthetic toxicity. Do not apply over area where liposomal bupivacaine injected for 96 hours. 0759 (Patch Free Period - Provider: Shane Mcclure RN - Comment: Pt does not want pain patch)1400 (Canceled Entry - Provider: Orders Generic Provider - Comment: Automatically canceled at discontinue of medication order) magnesium sulfate 4 g in 100 mL sterile water intermittent infusion (COMPLETED) 4 g, Intravenous, Administer over 120 Minutes, at 50 mL/hr, ONCE, On 10/16/22 at 1630, For 1 dose, Magnesium level 1.1-1.5 mg/dL. Administer 4 gm magnesium IV x 1 dose and recheck magnesium level 2-4 hours AFTER the last dose is infused. Ordered from the Magnesium replacement order set. 1647 ($New Bag - Provider: Cortney Gonzalez RN) meclizine (ANTIVERT) tablet 25 mg 25 mg, Oral, EVERY 6 HOURS SCHEDULED, First dose on 10/16/22 at 1800 1717 ($Given - Provider: Roger Wetzel RN)2312 ($Given - Provider: Will Andrews, ZITA) 0548 ($Given - Provider: Will Andrews, ZITA)1157 ($Given - Provider: Shane Mcclure, ZITA) metoprolol tartrate (LOPRESSOR) tablet 25 mg 25 mg, Oral, 2 TIMES DAILY, First dose on Tue10/15/22 at 1100 1128 ($Given - Provider: Prachi Bajwa, RN)2018 ($Given - Provider: Evi Gonzalez RN) 0901 ($Given - Provider: Shane Mcclure, ZITA)1949 ($Given - Provider: Will Andrews, ZITA) 0749 ($Given - Provider: Shane Mcclure, ZITA) ondansetron (ZOFRAN) injection 4 mg (COMPLETED) 4 mg, Intravenous, ONCE, Administer over 2-5 Minutes, On Tue10/15/22 at 0005, For 1 dose, Irritant. 0011 ($Given - Provider: Nilsa Martino RN) pantoprazole (PROTONIX) EC tablet 40 mg 40 mg, Oral, DAILY, First dose on 10/16/22 at 1800, DO NOT CRUSH. 1807 ($Given - Provider: Roger Wetzel RN) 0750 ($Given - Provider: Shane Mcclure RN) potassium chloride ER (KLOR-CON M) CR tablet 40 mEq (COMPLETED) 40 mEq, Oral, ONCE, On 10/16/22 at 1630, For 1 dose, Potassium level 3.1 - 3.4 mmol/L Ordered from the Potassium replacement order set. DO NOT CRUSH, Potassium Replacement: Potassium level 3.1-3.4 mmol/L, Recheck: Potassium level 4 hours AFTER last oral dose 1717 ($Given - Provider: Roger Wetzel RN) risperiDONE (risperDAL M-TABS) ODT tab 0.5 mg (CANCELED) 0.5 mg, Oral, EVERY MORNING, First dose on Tue10/15/22 at 1100 1145 ($Given - Provider: Prachi Bajwa, ZITA) risperiDONE (risperDAL M-TABS) ODT tab 1 mg 1 mg, Oral, EVERY MORNING, First dose (after last modification) on 4/8/23 at 0800 0859 ($Given - Provider: Shane Mcclure, ZITA) 0748 ($Given - Provider: Shane Mcclure, ZITA) rosuvastatin (CRESTOR) tablet 40 mg 40 mg, Oral, DAILY, First dose on Tue10/17/22 at 0800 0749 ($Given - Provider: Shane Mcclure, ZITA) scopolamine (TRANSDERM) 72 hr patch 1 patch(Linked Group 2) 1 patch, Transdermal, EVERY 72 HOURS, Administer over 72 Hours, First dose on Tue10/16/22 at 1430, Apply patch to skin, behind ear. Remove every 72 hours. DO NOT CUT PATCH. If dose is for a half or quarter patch, RN to remove only half or quarter of the backing. Each 1.5 mg patch delivers 1 mg of scopolamine. Reminder: Remove previous patch before applying new patch. 1552 ($Patch/Med Applied - Provider: Roger Wetzel RN) 1336 (Due: Patch/Med Removed - Provider: Orders Generic Provider - Comment: Time automatically adjusted from order being discontinued) scopolamine (TRANSDERM-SCOP) Patch in Place(Linked Group 2) First dose on Tue10/16/22 at 1430, Chart every shift, confirming that patch is still in place on patient (no barcode scan needed). See patch order for dose information. 1657 (Patch in Place - Provider: Roger Wetzel RN)2308 (Patch in Place - Provider: Will Andrews, ZITA) 0549 (Patch in Place - Provider: Will Andrews, ZITA)1430 (Canceled Entry - Provider: Orders Generic Provider - Comment: Automatically canceled at discontinue of medication order) sodium chloride 0.9% infusion (COMPLETED) at 150 mL/hr, Intravenous, ONCE, 1 dose, On Tue10/15/22 at 0000 0011 ($New Bag - Provider: Nilsa Martino, ZITA)0701 (Stopped - Provider: Cindy Tobar RN) vancomycin (VANCOCIN) capsule 125 mg STAT, 125 mg, Oral, 4 TIMES DAILY, First dose on Tue10/15/22 at 1200, Indications: Clostridioides difficile 1314 ($Given - Provider: Juany Petit, ZITA)1705 ($Given - Provider: Carmel Gunderson RN)2018 ($Given - Provider: Evi Gonzalez RN) 0900 ($Given - Provider: Shane Mcclure, ZITA)1240 ($Given - Provider: Shane Mcclure RN)1553 ($Given - Provider: Roger Wetzel RN)1950 ($Given - Provider: Will Andrews RN) 0750 ($Given - Provider: Shane Mcclure, ZITA)1157 ($Given - Provider: Shane Mcclure RN) Continuous Medication Order 10/15/2022 10/16/2022 10/17/2022 sodium chloride 0.9% infusion (CANCELED) at 125 mL/hr, Intravenous, CONTINUOUS, Starting on Tue10/15/22 at 0000, Until Tue10/17/22 at 1005 0701 ($New Bag - Provider: Cindy Tobar RN)1458 (Stopped - Provider: Trell Bowen RN - Comment: loss of IV access)2141 ($New Bag - Provider: Evi Gonzalez RN) 0514 ($New Bag - Provider: Evi Gonzalez RN)1331 ($New Bag - Provider: Shane Mcclure RN)2123 ($New Bag - Provider: Will Andrews, ZITA) 0319 ($New Bag - Provider: Will Andrews RN)1130 (Stopped - Provider: Shane Mcclure RN) PRN Medication Order 10/15/2022 10/16/2022 10/17/2022 dextrose 50 % injection 25-50 mL(Linked Group 3) 25-50 mL, Intravenous, EVERY 15 MIN PRN, low blood sugar, Administer over 1-5 Minutes, Starting on Tue10/15/22 at 0033, Use if have IV access, BG less [...] mg/dL. Vesicant. glucagon injection 1 mg(Linked Group 3) 1 mg, Subcutaneous, EVERY 15 MIN PRN, low blood sugar, May repeat x 1 only, Starting on Tue10/15/22 at 0033, May give SQ or IM. ONLY use glucagon IF patient has NO IV access AND is UNABLE to swallow AND blood glucose is LESS than or EQUAL to 50 mg/dL. glucose gel 15-30 g(Linked Group 3) 15-30 g, Oral, EVERY 15 MIN PRN, low blood sugar, Starting on Tue10/15/22 at 0033, Give first dose for initial blood glucose [...] juice on I and O flowsheet. HYDROmorphone (PF) (DILAUDID) injection 0.3 mg (CANCELED) 0.3 mg, Intravenous, EVERY 4 HOURS PRN, severe pain, Starting on Tue10/15/22 at 1352 2108 ($Given - Provider: Evi Gonzalez RN) 0118 ($Given - Provider: Evi Gonzalez RN)0509 ($Given - Provider: Evi Gonzalez RN)1554 ($Given - Provider: Roger Wetzel RN) hydrOXYzine (ATARAX) tablet 25 mg 25 mg, Oral, EVERY 6 HOURS PRN, anxiety, Starting on Tue10/15/22 at 0033 0113 ($Given - Provider: Cindy Tobar, ZITA) melatonin tablet 1 mg 1 mg, Oral, AT BEDTIME PRN, sleep, Starting on Tue10/15/22 at 0033, Do not give unless at least 6 hours of uninterrupted sleep is expected. methocarbamol (ROBAXIN) tablet 500-1,000 mg 500-1,000 mg, Oral, 4 TIMES DAILY PRN, muscle spasms, Starting on Tue10/15/22 at 0033 0252 ($Given - Provider: Cindy Tobar, ZITA) 1807 ($Given - Provider: Roger Wetzel RN) naloxone (NARCAN) injection 0.2 mg(Linked Group 4) 0.2 mg, Intravenous, EVERY 2 MIN PRN, opioid reversal, Starting on 10/16/22 at 1747, Administer intravenous route when available and notify [...] doses. naloxone (NARCAN) injection 0.2 mg(Linked Group 4) 0.2 mg, Intramuscular, EVERY 2 MIN PRN, opioid reversal, Starting on 10/16/22 at 1747, Administer intramuscular if an intravenous route is [...] doses. naloxone (NARCAN) injection 0.4 mg(Linked Group 4) 0.4 mg, Intravenous, EVERY 2 MIN PRN, opioid reversal, Starting on 10/16/22 at 1747, Administer intravenous route when available and notify [...] doses. naloxone (NARCAN) injection 0.4 mg(Linked Group 4) 0.4 mg, Intramuscular, EVERY 2 MIN PRN, opioid reversal, Starting on 10/16/22 at 1747, Administer intramuscular if an intravenous route is [...] 6 HOURS PRN, nausea, vomiting, Starting on Tue10/15/22 at 0033, This is Step 1 of nausea and vomiting management. If nausea not resolved in 15 minutes, go to Step 2 prochlorperazine (COMPAZINE). With dry hands, peel back foil backing and gently remove tablet. Do not push oral disintegrating tablet through foil backing. Administer immediately on tongue and oral disintegrating tablet dissolves in seconds, then swallow with saliva. Liquid not required. 0558 ($Given - Provider: Cindy Tobar RN)2131 (See Alternative - Provider: Evi Gonzalez RN) 0509 (See Alternative - Provider: Evi Gonzalez RN)0916 ($Given - Provider: Shane Mcclure RN) ondansetron (ZOFRAN) injection 4 mg(Linked Group 5) 4 mg, Intravenous, EVERY 6 HOURS PRN, nausea, vomiting, Administer over 2-5 Minutes, Starting on Tue10/15/22 at 0033, Give IF patient unable to tolerate oral medication. This is Step 1 of nausea and vomiting management. If nausea not resolved in 15 minutes, go to Step 2 prochlorperazine (COMPAZINE). Irritant. 0558 (See Alternative - Provider: Cindy Tobar RN)213 ($Given - Provider: Evi Gonzalez RN) 0509 ($Given - Provider: Evi Gonzalez RN)0916 (See Alternative - Provider: Shane Mcclure RN) oxyCODONE (ROXICODONE) tablet 5 mg (CANCELED) 5 mg, Oral, EVERY 4 HOURS PRN, severe pain, Starting on Tue10/15/22 at 0033, May use concomitant with non-opioid analgesics. 0113 ($Given - Provider: Cindy Tobar RN)0558 ($Given - Provider: Cindy Tobar, ZITA)1128 ($Given - Provider: Prachi Bajwa RN)1705 ($Given - Provider: Carmel Gunderson RN) 0916 ($Given - Provider: Shane Mcclure RN)1330 ($Given - Provider: Shane Mcclure RN)1807 ($Given - Provider: Roger Wetzel RN)2309 ($Given - Provider: Will Andrews, ZITA) 0317 ($Given - Provider: Will Andrews RN) prochlorperazine (COMPAZINE) injection 5 mg(Linked Group 6) 5 mg, Intravenous, EVERY 6 HOURS PRN, nausea, vomiting, Administer over 1-2 Minutes, Starting on Tue10/15/22 at 0236 0252 (See Alternative - Provider: Cindy Tobar RN)0915 ($Given - Provider: Juany Petit RN)1705 (See Alternative - Provider: Carmel Gunderson RN) 1330 (See Alternative - Provider: Shane Mcclure RN) prochlorperazine (COMPAZINE) suppository 25 mg(Linked Group 6) 25 mg, Rectal, EVERY 12 HOURS PRN, nausea, vomiting, Starting on Tue10/15/22 at 0236 0252 (See Alternative - Provider: Cindy Tobar RN)0915 (See Alternative - Provider: Juany Petit RN)1705 (See Alternative - Provider: Carmel Gunderson RN) 1330 (See Alternative - Provider: Shane Mcclure RN) prochlorperazine (COMPAZINE) tablet 5 mg(Linked Group 6) 5 mg, Oral, EVERY 6 HOURS PRN, nausea, vomiting, Starting on Tue10/15/22 at 0236 0252 ($Given - Provider: Cindy Tobar RN)0915 (See Alternative - Provider: Juany Petit RN)1705 ($Given - Provider: Carmel Gunderson RN) 1330 ($Given - Provider: Shane Mcclure RN) zolpidem (AMBIEN) half-tab 2.5 mg 2.5 mg, Oral, AT BEDTIME PRN, sleep, Starting on Tue10/16/22 at 1530 2309 ($Given - Provider: Will Andrews RN) Linked Groups Order Group 1: Lidocaine (LIDOCARE) 4 % Patch 1 patchJump to med 1 patch, Transdermal, EVERY 24 HOURS 0800, Administer over 12 Hours, First dose on 10/17/22 at 0800, Reminder: Remove previous patch before applying new patch. NEVER APPLY HEAT OVER PATCH which increases absorption and may lead to local anesthetic toxicity. Do not apply over area where liposomal bupivacaine was injected for 96 hours post injection. And lidocaine patch in PLACEJump to med First dose on 10/17/22 at 0800, NEVER APPLY HEAT OVER PATCH which will increase absorption and may lead to risk of local anesthetic toxicity. Do not apply over area where liposomal bupivacaine injected for 96 hours. Group 2: scopolamine (TRANSDERM) 72 hr patch 1 patchJump to med 1 patch, Transdermal, EVERY 72 HOURS, Administer over 72 Hours, First dose on 10/16/22 at 1430, Apply patch to skin, behind ear. Remove every 72 hours. DO NOT CUT PATCH. If dose is for a half or quarter patch, RN to remove only half or quarter of the backing. Each 1.5 mg patch delivers 1 mg of scopolamine. Reminder: Remove previous patch before applying new patch. And scopolamine (TRANSDERM-SCOP) Patch in PlaceJump to med First dose on 10/16/22 at 1430, Chart every shift, confirming that patch is still in place on patient (no barcode scan needed). See patch order for dose information. Group 3: glucose gel 15-30 gJump to med 15-30 g, Oral, EVERY 15 MIN PRN, low blood sugar, Starting on Tue10/15/22 at 0033, Give first dose for initial blood glucose [...] sugar, Administer over 1-5 Minutes, Starting on Tue10/15/22 at 0033, Use if have IV access, BG less [...] May repeat x 1 only, Starting on Tue10/15/22 at 0033, May give SQ or IM. ONLY use glucagon IF patient has NO IV access AND is UNABLE to swallow AND blood glucose is LESS than or EQUAL to 50 mg/dL. Group 4: naloxone (NARCAN) injection 0.2 mgJump to med 0.2 mg, Intravenous, EVERY 2 MIN PRN, opioid reversal, Starting on Tue10/16/22 at 1747, Administer intravenous route when available and notify [...] 2 MIN PRN, opioid reversal, Starting on 10/16/22 at 1747, Administer intravenous route when available and notify [...] 2 MIN PRN, opioid reversal, Starting on 10/16/22 at 1747, Administer intramuscular if an intravenous route is [...] 2 MIN PRN, opioid reversal, Starting on Tue10/16/22 at 1747, Administer intramuscular if an intravenous route is [...] 6 HOURS PRN, nausea, vomiting, Starting on Tue10/15/22 at 0033, This is Step 1 of nausea and [...] vomiting, Administer over 2-5 Minutes, Starting on Tue10/15/22 at 0033, Give IF patient unable to tolerate oral medication. This is Step 1 of nausea and vomiting management. If nausea not resolved in 15 minutes, go to Step 2 prochlorperazine (COMPAZINE). Irritant. Group 6: prochlorperazine (COMPAZINE) injection 5 mgJump to med 5 mg, Intravenous, EVERY 6 HOURS PRN, nausea, vomiting, Administer over 1-2 Minutes, Starting on Tue10/15/22 at 0236 Or prochlorperazine (COMPAZINE) tablet 5 mgJump to med 5 mg, Oral, EVERY 6 HOURS PRN, nausea, vomiting, Starting on Tue10/15/22 at 0236 Or prochlorperazine (COMPAZINE) suppository 25 mgJump to med 25 mg, Rectal, EVERY 12 HOURS PRN, nausea, vomiting, Starting on Tue10/15/22 at 0236 documented in this encounter Additional Health Concerns Infection Onset Date Last Indicated Resolved Time Rule Out C-difficile 10/14/2022 10/15/2022 023 12:33 AM CDT Rule Out C-difficile 10/15/2022 10/15/2022 023 5:39 AM CDT C-difficile 10/15/2022 10/27/2022 11/26/2022 11:4 0 PM CDT Assessment Noted Time PHQ-9 Depression Total Score: 13 022 3:28 PM DEICER REPAIRER documented as of this encounter Care Teams Director Client Services Relationship Specialty [place] [address] [place] [address] PCP - General Family Medicine 05/18/22 Jovany Gonzalez MD [facility] [address] [facility] 605 [place] [address] Orthopedics 02/15/17 Staci Woodward NP [place] [facility] [address] [place], [place] 212877 Nurse Practitioner Nurse Practitioner Psych/Mental Health 05/10/[address] [place] [facility] [address] [place] [address] Cobol Application Developer Dietitian, Registered 07/25/19 Roshni Nascimento, RN Personal Advocate & Liaison (PAL) Family Medicine 08/18/20 Kiet Swain MD [facility]0 [facility] [address] [place], [place] 9[address] Referring Physician Psychiatry 09/19/20 Winsome Pike, VIDHI DAY GUARD [address] [place], [place] 362384 Nurse Practitioner Psychiatry 09/19/20 Tori Hines, [facility] [address] [place] [address] [id number] Electric Meter Tester Electric Meter Tester - Clinical 09/19/20 [facility] [address] [place] [address] Pharmacist Pharmacist 11/12/20 Marisel Armando MD [address] [place] [address] [id number] Gastroenterology 02/05/21 Marisel Armando MD [address] [place] [address] [id number] Assigned Gastroenterology Provider 03/08/21 12/24/22 Wesley Barrett MD [address] [place] [address] [address] [place], [place] [id number] Assigned Neuroscience Provider 05/10/21 Charles Jaramillo PA-C [address] 205265 Assigned Musculoskeletal Provider 04/26/21 10/15/22 [place] [address] [place] [address] Assigned PCP 05/15/22 Katiana Read MD [address] [place] [address] 200 [place], [place] [address] Assigned Endocrinology Provider 06/19/22 [place] [address] [place] [address] Assigned Behavioral Health Provider 07/03/22 12/31/22 Deena Garza APRN DAY GUARD [address] [place] [address] Assigned Pain Medication Provider 07/19/22 10/29/22 Michelle Guzman DPAlisha, Podiatry/Foot and Ankle Surgery [address] [place] [facility] [place] [address] Assigned Musculoskeletal Provider 10/16/22 04/08/23 documented as of this encounter
--- OUTSIDE RECORDS SUMMARY | 2023-08-03 10:05 | XMS_ITS | Encounter Summary ---
Author Name Unknown Organization [facility] Address [address] [place] [address]. [place] [address] Care Team Providers Care Station Agent Name Role Phone Jovany Gonzalez MD Unavailable [phone] CrissyStaci jeong NP Unavailable [phone] Unavailable Roshni Nascimento RN Unavailable Unavailable Kiet Swain MD Unavailable [phone] Winsome Pike APRN SHELLFISH SORTER Unavailable [phone] Tori HinesSW Unavailable Miranda Queen [facility] Unavailable Unavailable Marisel Armando MD Unavailable Marisel Armando MD Unavailable Wesley Barrett MD Unavailable [phone] Dyan Fuentes MD Primary Care Provider [phone] Dyan Fuentes MD Unavailable [phone] Katiana Read MD Unavailable [phone] Meme Singleton PhD Unavailable [phone] Deena Garza DESK OFFICER SHELLFISH SORTER Unavailable [phone] Mary Del Cid FUR FINISHER SEAMSTRESS Unavailable [phone] Michelle Guzman DPM, Podiatry /Foot and Ankle Surgery Unavailable Encounter Details Date Type Department Care Team (Latest Contact Info) Description 10/18/2022 Travel Social History Tobacco Use Types Packs/Day [...] How often do you attend chur or scientologist services? 1 to 4 times per year 10/16/2021 Do you belong to any clubs o r organizations such as christian groups, unions, fraternal or athletic groups, or [...] Answer Date Recorded PHQ-2 Score 0 06/14/2022 [facility] [place] of Occupat ional Health - Occupational Stress [...] st Contact Info) Description 08/18/2023 3:[address] CLEANER Office Visit [facility] [address] [place] [address] Katiana Read MD [address] [place], [place] [address]350 documented as of this encounter Visit Diagnoses Not on filedocumented in this encounter Additional Health Concerns Infection Onset Date Last Indicated Resolved Time C-difficile 10/15/2022 10/27/2022 11/26/2022 11:4 0 PM CDT Assessment Noted Time PHQ-9 Depression Total Score: 13 022 3:[address] CLEANER documented as of this encounter Care Teams Station Agent Relationship Specialty [place] [address] [place] [address] PCP - General Family Medicine 05/18/22 Jovany Gonzalez MD [facility] [address] [facility] [address] [place], [place] 8[address] Orthopedics 02/15/17 Staci Woodward, FUR FINISHER SEAMSTRESS [place] [address] [place], [place] 10[address]67 Nurse Practitioner Nurse Practitioner Psych/Mental Health 05/10/17 Reanna Smith, RD [place] [facility] [address] [place] [address] Data Coder Operator Dietitian, Registered 07/25/19 Roshni Nascimento, RN Personal Advocate & Liaison (PAL) Family Medicine 08/18/20 Kiet Swain MD 2450 [facility] [address] [place] [address] Referring Physician Psychiatry 09/19/20 Winsome Pike APRN SHELLFISH SORTER [address] 832734 Nurse Practitioner Psychiatry 09/19/20 Tori Hines, [facility] [address] [place], [place] 445244 House Detective House Detective - Clinical 09/19/20 Miranda Queen, [facility] [address] [place] [address] Pharmacist Pharmacist 11/12/20 Marisel Armando MD [address] [place] [address] 014455 Gastroenterology 02/05/21 Marisel Armando MD [address] [place] [address] [id number] Assigned Gastroenterology Provider 03/08/21 12/24/22 Wesley Barrett MD [address] [place] [address] 573505 Assigned Neuroscience Provider 05/10/21 [place] [address] [place] [address] Assigned PCP 05/15/22 Katiana Read MD [address] [place] [address] Assigned Endocrinology Provider 06/19/22 [place]e [place] [address] [place] [address] Assigned Behavioral Health Provider 07/03/22 12/31/22 Deena Garza APRN SHELLFISH SORTER [address] [place] [address] Assigned Pain Medication Provider 07/19/22 10/29/22 Mary Del Cid, [place] [address] [place] [address] Nurse Practitioner Nurse Practitioner 10/18/22 Michelle Gumzan DPM, Podiatry/Foot and Ankle Surgery [address] [place] [address] Assigned Musculoskeletal Provider 10/16/22 04/08/23 documented as of this encounter
--- OUTSIDE RECORDS SUMMARY | 2023-08-03 10:06 | XMS_ITS | Encounter Summary ---
Author Name Unknown Organization [facility] Address [address] [place] [address]. [place] [address] Care Team Providers Care Retirement Manager Name Role Phone Jovany Gonzalez MD Unavailable CrissyStaci jeong NP Unavailable Reanna Smith RD Unavailable [phone] Roshni Nascimento RN Unavailable Unavailable Kiet Swain MD Unavailable [phone] Winsome Pike APRN CAD DESIGN ENGINEER Unavailable [phone] Tori Hines [facility] Unavailable Miranda Queen [facility] Unavailable Unavailable Marisel Armando MD Unavailable Marisel Armando MD Unavailable Inderjit Ugalde MD Unavailable [phone] Wesley Barrett MD Unavailable [phone] Charles Jaramillo PA-C Unavailable [phone] Dyan Fuentes MD Primary Care Provider [phone] Dyan Fuentes MD Unavailable [phone] Katiana Read MD Unavailable [phone] Meme Singleton PhD Unavailable [phone] Deena Garza APRN CAD DESIGN ENGINEER Unavailable [phone] Encounter Details Date Type Department Care Team (Latest Contact Info) Description 08/18/2022 Travel Social History Tobacco Use Types Packs/Day [...] How often do you attend chur or cheondoism services? 1 to 4 times per year 10/16/2021 Do you belong to any clubs o r organizations such as christianity groups, unions, fraternal or athletic groups, or [...] Answer Date Recorded PHQ-2 Score 0 06/14/2022 [facility] [place] of Occupat ional Health - Occupational Stress [...] suspected to have Coronavirus/COVID-19? Unable to assess 08/18/2022 11:00 AM DIRECTOR HAIR documented as of this encounter Plan of Treatment Upcoming Encounters Date Type Department Care Team (Late st Contact Info) Description 08/18/2023 3:00 PM DIRECTOR HAIR Office Visit [place] [address] [place] [phone] Katiana Read MD [address] [facility] 200 [place], [place] [address] documented as of this encounter Visit Diagnoses Not on filedocumented in this encounter Additional Health Concerns Assessment Noted Time PHQ-9 Depression Total Score: 13 022 3:28 PM DIRECTOR HAIR documented as of this encounter Care Teams Retirement Manager Relationship Specialty [place] [address] [place] [address] PCP - General Family Medicine 05/18/22 Jovany Gonzalez MD [facility] 6600 [facility] 605 [place], [place] 410[address] Orthopedics 02/15/17 Staci Woodward [facility] [address] [place] [place], [place] [address] Nurse Practitioner Nurse Practitioner Psych/Mental Health 05/10/17 Reanna Smith, RD [facility] [address] [place] [address] College President Dietitian, Registered 07/25/19 Roshni Nascimento, RN Personal Advocate & Liaison (PAL) Family Medicine 08/18/20 Kiet Swain MD 2450 [facility]15 [place], [place] [address] Referring Physician Psychiatry 09/19/20 Winsome Pike APRN CAD DESIGN ENGINEER [address] [place] [address] Nurse Practitioner Psychiatry 09/19/20 Tori Hines [facility] 2450 [place], [place] 579864 Pay Station Department Manager Pay Station Department Manager - Clinical 09/19/20 Miranda Queen [facility] [address] [place] [address] Pharmacist Pharmacist 11/12/20 Marisel Armando MD [address] [place] [address] [phone] Gastroenterology 02/05/21 Marisel Armando MD [address] [place] [address] 016115 Assigned Gastroenterology Provider 03/08/21 12/24/22 Inderjit Ugalde MD [address] [facility] 300 [place], [place] 03[address]17 Assigned Surgical Provider 02/15/21 08/20/22 Wesley Barrett MD 420 [facility] 96 [place], [place] 3[address] Assigned Neuroscience Provider 05/10/21 Charles Jaramillo PA-C [address] 5535[address] Assigned Musculoskeletal Provider 04/26/21 10/15/22 [place] [address] [place] [address] Assigned PCP 05/15/22 Katiana Read MD [address] [facility] 200 [place] [address] Assigned Endocrinology Provider 06/19/22 [place] [address] [place] [address] Assigned Behavioral Health Provider 07/03/22 12/31/22 Deena Garza, DRAFTING TEACHER CAD DESIGN ENGINEER [address] [place] [address] Assigned Pain Medication Provider 07/19/22 10/29/22 documented as of this encounter
--- OUTSIDE RECORDS SUMMARY | 2023-08-03 10:06 | XMS_ITS | Encounter Summary ---
Author Name Unknown Organization [facility] Address [address] [place] [address]. [place] [address] Care Team Providers Care Mill And Coal Transport Operator Name Role Phone Jovany Gonzalez MD Unavailable CrissyStaci jeong QUALITY ASSURANCE LAB TECHNICIAN Unavailable [phone] Unavailable [phone] Roshni Nascimento RN Unavailable Unavailable Kiet Swain MD Unavailable [phone] Winsome Pike APRN PRODUCT MARKETER Unavailable [phone] Tori Hines [facility] Unavailable Miranda Queen [facility] Unavailable Unavailable Marisel Armando MD Unavailable Marisel Armando MD Unavailable Wesley Barrett MD Unavailable [phone] Charles Jaramillo PA-C Unavailable [phone] Dyan Fuentes MD Primary Care Provider [phone] Dyan Fuentes MD Unavailable [phone] Katiana Read MD Unavailable [phone] Meme Singleton PhD Unavailable [phone] Deena Garza ICT HELP DESK OFFICER PRODUCT MARKETER Unavailable [phone] Encounter Details Date Type Department Care Team (Latest Contact Info) Description 09/06/2022 Travel Social History Tobacco Use Types Packs/Day [...] How often do you attend chur or moravian services? 1 to 4 times [...] Score 0 06/14/2022 [facility] [place] of Occupat ional Health - Occupational Stress [...] suspected to have Coronavirus/COVID-19? No / Unsure 09/06/2022 2:05 PM COFFEE SAMPLER documented as of this encounter Plan of Treatment Upcoming Encounters Date Type Department Care Team (Kelly st Contact Info) Description 08/18/2023 3:00 PM COFFEE SAMPLER Office Visit [facility] [address] [place] [phone] Katiana Read MD [address] [place], [place] [address] documented as of this encounter Visit Diagnoses Not on filedocumented in this encounter Additional Health Concerns Assessment Noted Time PHQ-9 Depression Total Score: 13 022 3:28 PM COFFEE SAMPLER documented as of this encounter Care Teams Mill And Coal Transport Operator Relationship Specialty [place] [address] [place] [address] PCP - General Family Medicine 05/18/22 Jovany Gonzalez MD [facility] [address] [facility] [address] [place] [address] Orthopedics 02/15/17 Staci Woodward, QUALITY ASSURANCE LAB TECHNICIAN [facility] [address] [place], [place] [address] Nurse Practitioner Nurse Practitioner Psych/Mental Health 05/10/17 Reanna Smith, RD [facility] [address] [place], [place] [address] Music Therapy Specialist Dietitian, Registered 07/25/19 Roshni Nascimento, RN Personal Advocate & Liaison (PAL) Family Medicine 08/18/20 Kiet Swain MD 2450 [facility] [address] [place], [place] [address] Referring Physician Psychiatry 09/19/20 Winsome Pike APRN PRODUCT MARKETER [address] [place] [address] Nurse Practitioner Psychiatry 09/19/20 Tori Hines, [facility] 2450 [place], [place] 687[address] Time Cycle Operator Time Cycle Operator - Clinical 09/19/20 Miranda Queen [facility] [address] [place] [address] Pharmacist Pharmacist 11/12/20 Marisel Armando MD 909 [place], [place] 6[address] Gastroenterology 02/05/21 Marisel Armando MD [address] [place] [address] [phone] Assigned Gastroenterology Provider 03/08/21 12/24/22 Wesley Barrett MD 420 [facility] 96 [place], [place] 7[address] Assigned Neuroscience Provider 05/10/21 Charles Jaramillo PA-C 6545 [facility] 450 [place] [address] Assigned Musculoskeletal Provider 04/26/21 10/15/22 [place] [address] [place] [address] Assigned PCP 05/15/22 Katiana Read MD [address] 200 [place] [address] Assigned Endocrinology Provider 06/19/22 [place] [address] [place] [address] Assigned Behavioral Health Provider 07/03/22 12/31/22 Deena Garza APRN PRODUCT MARKETER [address] [place] [address] Assigned Pain Medication Provider 07/19/22 10/29/22 documented as of this encounter
--- OUTSIDE RECORDS SUMMARY | 2023-08-03 10:06 | XMS_ITS | Encounter Summary ---
Author Name Unknown Organization [facility] Address [address] [place] [address]. [place] [address] Care Team Providers Care Beamer Helper Name Role Phone Jovany Gonzalez MD Unavailable CrissyStaci jeong CYBER INCIDENT HANDLER Unavailable [phone] Unavailable [phone] Roshni Nascimento RN Unavailable Unavailable Kiet Swain MD Unavailable [phone] Winsome Pike APRN ASSISTANT PRESS OPERATOR Unavailable [phone] Tori Hines [facility] Unavailable Miranda Queen [facility] Unavailable Unavailable Marisel Armando MD Unavailable Marisel Armando MD Unavailable Wesley Barrett MD Unavailable [phone] Charles Jaramillo PA-C Unavailable [phone] Dyan Fuentes MD Primary Care Provider [phone] Dyan Fuentes MD Unavailable [phone] Katiana Read MD Unavailable [phone] Meme Singleton PhD Unavailable [phone] Deena Garza GALLERY MANAGER ASSISTANT PRESS OPERATOR Unavailable [phone] Reason for Visit * Reason Onset Date Comments Opioid Refill 09/20/2022 buprenorphine HC l-naloxone HCl (SUBOXONE) 2-0.5 MG per film Encounter Details Date Type Department Care Team (Late st Contact Info) Description 09/20/2022 Refill [facility] [place] [address] [facility] [address] [place], [place] [address] [place] [address] [place] [address] Opioid Refill ( buprenorphine HCl-naloxone HCl (SUBOXONE) 2-0.5 MG per film) [...] Answer Date Recorded PHQ-2 Score 0 06/14/2022 [facility] [place] [facility] - Occupational Stress Questionnaire Answer Date Recorded [...] Coronavirus/COVID-19? No / Unsure 09/06/2022 2:05 PM CYBER INCIDENT RESPONDER documented as of this encounter Miscellaneous Notes * Telephone Encounter - Leeann Echevarria MA - 09/21/2022 8:22 AM CDT LVM, notified that prescription was sent to preferred pharmacy. Able to fill 09/21/22 and start 09/23/22 Leeann Echevarria MA [facility] * Telephone Encounter - Maurice Cee NP - 09/20/2022 3:52 PM CDT Script Eprescribed to pharmacy [place] Prescription Monitoring Program checked, no fill for August suboxone present. Okay to fill perbelow. Will send this to MA team to notify patient. Signed Prescriptions: Disp Refills buprenorphine HCl-naloxone HCl (SUBOXONE) *90 Film0 Sig: Place 1 Film under the tongue 3 times daily OK to fill 09/21/22 start 09/23/22 Authorizing Provider: MAURICE CEE NP * Telephone Encounter - Blanquita Perera RN - 09/20/2022 2:37 PM CDT Routing to provider to review medication prepped per below Suboxone 2-0.5, #90, Refill:no Sig:OK to fill 09/21/22 start 09/23/22 Last picked up 08/22/22 with start on 08/24/22 Due:09/23/22 Per last OV note 07/15/22: Chronic pain syndrome Continue current regimen. Will [...] through 08/23/22 Dispense: 60 Film; Refill: 0 Blanquita LEAHY, RN Flatwork Finisher [facility] * Telephone Encounter - Cyndee Leija CMA - 09/20/2022 2:09 PM CDT Received call from patient requesting refill(s) for buprenorphine HCl-naloxone HCl (SUBOXONE) 2-0.5 MG per film Last dispensed from pharmacy on 08/22/22 Patient's last office/virtual visit by prescribing provider on 07/15/22 Next office/virtual appointment scheduled for none Last urine drug screen date 12/17/21 Current opioid agreement on file? Yes Date of opioid agreement: 12/17/21 E-prescribe to: [facility] - [address] Will route to [facility] for review and preparation of prescription(s). * Telephone Encounter - Janine Argueta RN - 09/20/2022 11:15 AM CDT Will route to [facility] for assistance with gathering opioid refill information. Janine Raymundo RN Flatwork Finisher [facility] * Telephone Encounter - Herlinda Benites - 09/20/2022 10:57 AM CDT [facility] Phone Message May a detailed message be left on voicemail: yes Reason for Call: Medication Refill Request Has the patient contacted the pharmacy for the refill? Yes Name of medication being requested: buprenorphine HCl-naloxone HCl (SUBOXONE) 2- 0.5 MG per film Provider who prescribed the medication: Maurice Cee NP Pharmacy: [facility] - [address] Date medication is needed: 3 days Action Taken: Message routed to: Other: [facility] Travel Screening: Not Applicable documented in this encounter Plan of Treatment Upcoming Encounters Date Type Department Care Team (Late st Contact Info) Description 08/18/2023 3:00 PM CYBER INCIDENT RESPONDER Office Visit [facility] [address] [place] [phone] Katiana Read MD [address] [facility] [address] [place], [place] [address] documented as of this encounter Visit Diagnoses Diagnosis Chronic pain syndrome documented in this encounter Additional Health Concerns Assessment Noted Time PHQ-9 Depression Total Score: 13 022 3:28 PM CYBER INCIDENT RESPONDER documented as of this encounter Care Teams Beamer Helper Relationship Specialty [place] [address] [place] [address] PCP - General Family Medicine 05/18/22 Jovany Gonzalez MD [facility] [address] [facility] [address] [place] [address] Orthopedics 02/15/17 Staci Woodward NP [facility] [address] [place] [address] Nurse Practitioner Nurse Practitioner Psych/Mental Health 05/10/17 Reanna Smith, [facility] [address] [place] [address] Mate Relief Dietitian, Registered 07/25/19 Roshni Nascimento, RN Personal Advocate & Liaison (PAL) Family Medicine 08/18/20 Kiet Swain MD [facility] [address] [place], [place] [address] Referring Physician Psychiatry 09/19/20 Winsome Pike, VIDHI ASSISTANT PRESS OPERATOR [address] [address] Nurse Practitioner Psychiatry 09/19/20 Tori Hines, [facility] [place], [place] [id number] Air And Water Tester Air And Water Tester - Clinical 09/19/20 Miranda Queen [facility] [address] [place] [address] Pharmacist Pharmacist 11/12/20 Marisel Armando MD [address] [place] [address] Gastroenterology 02/05/21 Marisel Armando MD [address] [place] [address] 632815 Assigned Gastroenterology Provider 03/08/21 12/24/22 Wesley Barrett MD [address] [place] [address] [address] [place], [place] [address] Assigned Neuroscience Provider 05/10/21 Charles Jaramillo PA-C [address] [place] [address] Assigned Musculoskeletal Provider 04/26/21 10/15/22 [place] [address] [place] [address] Assigned PCP 05/15/22 Katiana Read MD [address] [facility] [address] [place] [address] Assigned Endocrinology Provider 06/19/22 Meme Singleton, PhD [address] [place] [address] Assigned Behavioral Health Provider 07/03/22 12/31/22 Deena Garza, GALLERY MANAGER ASSISTANT PRESS OPERATOR [address] [place] [address] Assigned Pain Medication Provider 07/19/22 10/29/22 documented as of this encounter
--- OUTSIDE RECORDS SUMMARY | 2023-08-03 10:06 | XMS_ITS | Encounter Summary ---
Author Name Unknown Organization [facility] Address [address] [place] [address]. [place] [address] Care Team Providers Care Bookmaker Map Name Role Phone Jovany Gonzalez MD Unavailable [phone] CrissyStaci jeong NP Unavailable [phone] Unavailable Roshni Nascimento RN Unavailable Unavailable Kiet Swain MD Unavailable [phone] Winsome Pike APRN LACQUER MAKER Unavailable [phone] Tori Hines [facility] Unavailable Miranda Queen [facility] Unavailable Unavailable Marisel Armando MD Unavailable Marisel Armando MD Unavailable Inderjit Ugalde MD Unavailable [phone] Wesley Barrett MD Unavailable [phone] Charles Jaramillo PA-C Unavailable [phone] Dyan Fuentes MD Primary Care Provider [phone] Dyan Fuentes MD Unavailable [phone] Katiana Read MD Unavailable [phone] Meme Singleton PhD Unavailable [phone] Deena Garza APRN LACQUER MAKER Unavailable [phone] Reason for Visit * Reason Onset Date Comments Opioid Refill 08/19/2022 buprenorphine HC l-naloxone HCl (SUBOXONE) 2-0.5 MG per film Encounter Details Date Type Department Care Team (Late st Contact Info) Description 08/19/2022 Refill [facility] [place] [address] [facility] [address] [place], [place] [address] [place] [address] [place] [address] Opioid Refill (buprenorphine HCl-naloxone HCl (SUBOXONE) 2-0.5 [...] Answer Date Recorded PHQ-2 Score 0 06/14/2022 [facility] Occupat ional [facility] - Occupational Stress Questionnaire Answer Date Recorded [...] Coronavirus/COVID-19? Unable to assess 08/18/2022 11:00 AM DIELECTRIC TESTING MACHINE OPERATOR documented as of this encounter Miscellaneous Notes * Telephone Encounter - Caryl Wheeelr MA - 08/19/2022 3:10 PM CST [employer] message sent with Rx approval from provider. [facility] Team ECTRIC TESTING MACHINE OPERATOR * Telephone Encounter - Mary Del Cid NP - 08/19/2022 2:28 PM DIELECTRIC TESTING MACHINE OPERATOR Script Eprescribed to pharmacy [place] Prescription Monitoring [place] checked Will send to MICHELLE to notify patient. Did have a shorter quantity at last fill as she had a surplus of suboxone at her follow-up visit. Will ask her to bring her meds in with her when she returns in 2 months. Pending Prescriptions: Disp Refills buprenorphine HCl-naloxone HCl (SUBOXONE)*90 Film0 Sig: Place 1 Film under the tongue 3 times daily OK to fill 08/22/22 start 08/24/22 Mary Del Cid NP ECTRIC TESTING MACHINE OPERATOR * Telephone Encounter - Blanquita Perera RN - 08/19/2022 2:07 PM CST Routing to provider to review medication prepped per below subxone 2-0.5, #90, Refill:no Sig:OK to fill 08/22/22 start 08/24/22 Last picked up 07/23/22 with start on 07/25/22 Due 08/24/22 Per last OV note 07/15/22: - buprenorphine HCl-naloxone HCl (SUBOXONE) 2-0.5 MG per film; Place 1 Film under the tongue 3 times daily OK to fill 07/23/22 and use 07/25/22 through 08/23/22 Dispense: 60 Film; Refill: 0 Blanquita LEAHY, RN Expert Medical Writer [facility] ECTRIC TESTING MACHINE OPERATOR * Telephone Encounter - Cyndee Leija CMA - 08/19/2022 12:44 PM CST Received call from patient requesting refill(s) for buprenorphine HCl-naloxone HCl (SUBOXONE) 2-0.5 MG per film Last dispensed from pharmacy on 07/23/22 Patient's last office/virtual visit by prescribing provider on 07/15/22 Next office/virtual appointment scheduled for none Last urine drug screen date 12/17/21 Current opioid agreement on file? Yes Date of opioid agreement: 12/17/21 E-prescribe to: [facility] [place], [address] Will route to [facility] [place] for review and preparation of prescription(s). ECTRIC TESTING MACHINE OPERATOR documented in this encounter Plan of Treatment Upcoming Encounters Date Type Department Care Team (Late st Contact Info) Description 08/18/2023 3:00 PM DIELECTRIC TESTING MACHINE OPERATOR Office Visit [facility] [address] [facility] [facility] [address] [place] [phone] Katiana Read MD [address] [place] [address] [place] [address] documented as of this encounter Visit Diagnoses Diagnosis Chronic pain syndrome documented in this encounter Additional Health Concerns Assessment Noted Time PHQ-9 Depression Total Score: 13 022 3:28 PM DIELECTRIC TESTING MACHINE OPERATOR documented as of this encounter Care Teams Bookmaker Map Relationship Specialty [place] [address] [place] [address] PCP - General Family Medicine 05/18/22 Jovany Gonzalez MD [facility] [address] [facility] [address] [place] [address] Orthopedics 02/15/17 Staci Woodward, SCREWHEAD STONER AND POLISHER [place] [address] [place] [address] Nurse Practitioner Nurse Practitioner Psych/Mental Health 05/10/17 Reanna Smith, RD [facility] [address] [place], [place] [address] Power Plant Operator Apprentice Dietitian, Registered 07/25/19 Roshni Nascimento, RN Personal Advocate & Liaison (PAL) Family Medicine 08/18/20 Kiet Swain MD [address] [place] [address] Referring Physician Psychiatry 09/19/20 Winsome Pike APRN LACQUER MAKER [facility] [address] [address] Nurse Practitioner Psychiatry 09/19/20 Tori Hines, [facility] [address] [place] [address] Fixer Supervisor Fixer Supervisor - Clinical 09/19/20 Miranda Queen [facility] [address] [place] [address] Pharmacist Pharmacist 11/12/20 Marisel Armando MD 9 [place] [address] Gastroenterology 02/05/21 Marisel Armando MD [address] [place] [address] Assigned Gastroenterology Provider 03/08/21 12/24/22 Inderjit Ugalde MD [address] [facility] 300 [place] [address] Assigned Surgical Provider 02/15/21 08/20/22 Wesley Barrett MD [address] [facility] 96 [place] [address] Assigned Neuroscience Provider 05/10/21 Charles Jaramillo PA-C [address] [facility] [address] [place] [address] Assigned Musculoskeletal Provider 04/26/21 10/15/22 [place] [address] [place] [address] Assigned PCP 05/15/22 Katiana Read MD [address] [facility] 200 [place] [address] Assigned Endocrinology Provider 06/19/22 Meme [place] PhD [address] [place] [address] Assigned Behavioral Health Provider 07/03/22 12/31/22 Deena Garza, SOFTWARE DEVELOPER CONSULTANT LACQUER [place]ER [address] [place] [address] Assigned Pain Medication Provider 07/19/22 10/29/22 documented as of this encounter
--- OUTSIDE RECORDS SUMMARY | 2023-08-03 10:06 | XMS_ITS | Encounter Summary ---
Author Name Unknown Organization [facility] Address [address] [place] [address]. [place] [address] Care Team Providers Care Channel Opener Name Role Phone Jovany Gonzalez MD Unavailable [phone] CrissyStaci jeong NP Unavailable [phone] Unavailable [phone] Roshni Nascimento RN Unavailable Unavailable Kiet Swain MD Unavailable [phone] Winsome Pike APRN MAT MACHINE OPERATOR Unavailable [phone] Tori Hines [facility] Unavailable Miranda Queen [facility] Unavailable Unavailable Marisel Armando MD Unavailable Marisel Armando MD Unavailable Inderjit Ugalde MD Unavailable [phone] Wesley Barrett MD Unavailable [phone] Charles Jaramillo PA-C Unavailable [phone] Dyan Fuentes MD Primary Care Provider [phone] Dyan Fuentes MD Unavailable [phone] Katiana Read MD Unavailable [phone] Meme Singleton PhD Unavailable [phone] Deena Garza APRN MAT MACHINE OPERATOR Unavailable [phone] Encounter Details Date Type Department Care Team (Latest Contact Info) Description 08/17/2022 Travel Social History Tobacco Use Types Packs/Day [...] any clubs o r organizations such as buddhism groups, unions, fraternal or athletic groups, or [...] Answer Date Recorded PHQ-2 Score 0 06/14/2022 [facility] [place] of Occupat ional Health - Occupational Stress [...] suspected to have Coronavirus/COVID-19? No / Unsure 08/17/2022 9:30 AM STABLE HELPER documented as of this encounter Plan of Treatment Upcoming Encounters Date Type Department Care Team (Late st Contact Info) Description 08/18/2023 3:00 PM STABLE HELPER Office Visit [place] [address] [place] [phone] Katiana Read MD [address] [facility] 200 [place], [place] [address] documented as of this encounter Visit Diagnoses Not on filedocumented in this encounter Additional Health Concerns Assessment Noted Time PHQ-9 Depression Total Score: 13 022 3:28 PM STABLE HELPER documented as of this encounter Care Teams Channel Opener Relationship Specialty [place] [address] [place] [address] PCP - General Family Medicine 05/18/22 Jovany Gonzalez MD [facility] [address] [facility] 605 [place], [place] [address] Orthopedics 02/15/17 Staci Woodward FINGERPRINT EXPERT [place] [address] [place], [place] [address] Nurse Practitioner Nurse Practitioner Psych/Mental Health 05/10/17 Reanan Smith, RD [place] [address] [place] [address] [employer] Specialist Dietitian, Registered 07/25/19 Roshni Nascimento, RN Personal Advocate & Liaison (PAL) Family Medicine 08/18/20 Kiet Swain MD [address] [facility] [place], [place] [address] Referring Physician Psychiatry 09/19/20 Winsome Pike APRN MAT MACHINE OPERATOR [address] [place] [address] Nurse Practitioner Psychiatry 09/19/20 Tori Hines [facility] [address] [place], [place] [address] Seismograph Operator Helper Seismograph Operator Helper - Clinical 09/19/20 Miranda Queen [facility] [address] [place] [address] Pharmacist Pharmacist 11/12/20 Marisel Armando MD [address] [place] [address] Gastroenterology 02/05/21 Marisel Armando MD [address] [place] [address]69[address] Assigned Gastroenterology Provider 03/08/21 12/24/22 Inderjit Ugalde MD [address] [facility] 300 [place], [place] [address] Assigned Surgical Provider 02/15/21 08/20/22 Wesley Barrett MD [address] [facility] 96 [place], [place] [address] Assigned Neuroscience Provider 05/10/21 Charles Jaramillo PA-C [address] [address] Assigned Musculoskeletal Provider 04/26/21 10/15/22 [place] [address] [place] [address] Assigned PCP 05/15/22 Katiana Read MD [address] [facility] 200 [place] [address] Assigned Endocrinology Provider 06/19/22 Meme [place] PhD [address] [place] [address] Assigned Behavioral Health Provider 07/03/22 12/31/22 Deena Garza, TENTER FRAME BACK TENDER MAT MACHINE OPERATOR [address] [place] [address] Assigned Pain Medication Provider 07/19/22 10/29/22 documented as of this encounter
--- OUTSIDE RECORDS SUMMARY | 2023-08-03 10:06 | XMS_ITS | Encounter Summary ---
Author Name Unknown Organization [facility] Address [address] [place] [address]. [place] [address] Care Team Providers Care Configuration Specialist Name Role Phone Jovany Gonzalez MD Unavailable CrissyStaci jeong MERCHANT POLICE Unavailable [phone] Unavailable [phone] Roshni Nascimento RN Unavailable Unavailable Kiet Swain MD Unavailable [phone] Winsome Pike APRN GRAD INTERN Unavailable [phone] Tori Hines [facility] Unavailable Miranda Queen [facility] Unavailable Unavailable Marisel Armando MD Unavailable Marisel Armando MD Unavailable Wesley Barrett MD Unavailable [phone] Charles Jaramillo PA-C Unavailable [phone] Dyan Fuentes MD Primary Care Provider [phone] Dyan Fuentes MD Unavailable [phone] Katiana Read MD Unavailable [phone] Meme Singleton PhD Unavailable [phone] Deena Garza CHILDREN'S SERVICE SUPERVISOR GRAD INTERN Unavailable [phone] Encounter Details Date Type Department Care Team (Late st Contact Info) Description 10/04/2022 2:00 PM CDT Lab [facility] [address] [place] [address] Hypertriglyceridemia; Vitamin B12 deficiency; Postprocedural hypothyroidism Social History Tobacco Use Types [...] week 10/16/2021 How often do you attend [facility] or [facility] services? 1 to 4 times per year [...] Answer Date Recorded PHQ-2 Score 0 06/14/2022 [facility] of Occupat ional Health - Occupational Stress [...] suspected to have Coronavirus/COVID-19? No / Unsure 10/04/2022 1:50 PM CDT documented as of this encounter Plan of Treatment Upcoming Encounters Date Type Department Care Team (Kelly burns Contact Info) Description 08/18/2023 3:00 PM CUSTOMER ACQUISITION SPECIALIST Office Visit [facility] [address] [place] [address] Katiana Read MD [address] [place] [address] documented as of this encounter Procedures Procedure Name Priority Date/Time Associated Diagnosis Comments TSH Routine 10/04/2022 1:56 PM CDT Postprocedural hypothyroidism T4 FREE Routine 10/04/2022 1:56 PM CDT Postprocedural hypothyroidism LIPID REFLEX TO DIRECT LDL PANEL Routine 10/04/2022 1:56 PM CDT Hypertriglyceridemia LDL CHOLESTEROL DIRECT Routine 10/04/2022 1:56 PM CDT Hypertriglyceridemia VITAMIN B12 Routine 10/04/2022 1:56 PM CDT Vitamin B12 deficiency documented in this encounter Results * LDL cholesterol direct (10/04/2022 1:56 PM CDT) LDL Cholesterol Direct 50 <100 mg/dL 10/04/2022 9:49 PM CDT [facility] Comment: Age 2-19 years: Desirable: 0-110 mg/dL Borderline high: 110-129 mg/dL High: >= 130 mg/dL Age 20 years and older: Desirable: <100mg/dL Above desirable: 100-129 mg/dL Borderline high: 130-159 mg/dL High: 160-189 mg/dL Very high: >= 190 mg/dL Blood BLOOD SPECIMEN / Unknown Venipuncture / Unknown 10/04/2022 1:56 PM CDT 10/04/2022 1:56 PM CDT Dyan Fuentes MD LAB - BLOOD ORDER LENA [facility] [place] [facility] [address] [facility], [address] [place] [address], [facility] [phone] * (ABNORMAL) TSH (10/04/2022 1:56 PM CDT) TSH 47.60(H) 0.30 - 4.20 uIU/mL 10/04/2022 6:38 PM CDT [facility] Blood BLOOD SPECIMEN / Unknown Venipuncture / Unknown 10/04/2022 1:56 PM CDT 10/04/2022 1:56 PM CDT Katiana Read MD LAB - BLOOD ORDER LENA [facility] Lab [address] [facility], [address] [place] [address], [facility] [phone] * (ABNORMAL) T4 free (10/04/2022 1:56 PM CDT) Pathologist [facility] Free T4 0.66(L) 0.90 - 1.70 ng/dL 10/04/2022 6:38 PM CDT [facility] Blood BLOOD SPECIMEN / Unknown Venipuncture / Unknown 10/04/2022 1:56 PM CDT 10/04/2022 1:56 PM CDT Katiana Read MD LAB - BLOOD ORDER LENA [facility] [place] [facility] [address] [facility], [address] [place] [address], [facility] [phone] * Vitamin B12 (10/04/2022 1:56 PM CDT) Vitamin B12 1,237 232 - 1,245 pg/mL 10/04/2022 6:38 PM CDT [facility] Blood BLOOD SPECIMEN / Unknown Venipuncture / Unknown 10/04/2022 1:56 PM CDT 10/04/2022 1:56 PM CDT Dyan Fuentes MD LAB - BLOOD ORDER LENA [facility] Lab [address] [facility], [address] [place] [address], [facility] [phone] * (ABNORMAL) Lipid panel reflex to direct LDL Fasting (10/04/2022 1:56 PM CDT) Cholesterol 210(H) <200 mg/dL 10/04/2022 6:38 PM CDT [facility] Triglycerides 596(H) <150 mg/dL 10/04/2022 6:38 PM CDT [facility] Direct Measure HDL 64 >=50 mg/dL 10/04/2022 6:38 PM CDT [facility] LDL Cholesterol Calculated 10/04/2022 6:38 PM CDT [facility] Comment:Cannot estimate LDL when triglyceride exceeds 400 mg/dL Non HDL Cholesterol 146(H) <130 mg/dL 10/04/2022 6:38 PM CDT [facility] Blood BLOOD SPECIMEN / Unknown Venipuncture / Unknown 10/04/2022 1:56 PM CDT 10/04/2022 1:56 PM CDT Narrative [facility] - 10/04/2022 6:38 PM CDT Cholesterol Desirable: ??<200 mg/dL Triglycerides Normal: ??Less [...] LAB - BLOOD ORDER LENA [facility] [place] [facility] [address] [facility], [address] [place] [address], [facility] [phone] documented in this encounter Visit Diagnoses Diagnosis Hypertriglyceridemia Pure hyperglyceridemia Vitamin B12 deficiency Other B-complex deficiencies Postprocedural hypothyroidism Postsurgical hypothyroidism documented in this encounter Additional Health Concerns Assessment Noted Time PHQ-9 Depression Total Score: 13 022 3:28 PM CUSTOMER ACQUISITION SPECIALIST documented as of this encounter Care Teams Configuration Specialist Relationship Specialty [place] [address] [place] [address] PCP - General Family Medicine 05/18/22 Jovany Gonzalez MD [facility] [address] [facility] [place] [address] [place] [address] Orthopedics 02/15/17 Staci Woodward MERCHANT POLICE [facility] [address] [place] [address] Nurse Practitioner Nurse Practitioner Psych/Mental Health 05/10/17 Reanna Smith, RD [facility] [address] [place] [address] Jigger Operator Dietitian, Registered 07/25/19 Roshni Nascimento, RN Personal Advocate & Liaison (PAL) Family Medicine 08/18/20 Kiet Swain MD [address] [facility] [address] [place] [address] Referring Physician Psychiatry 3/12/21 Winsome Pike APRN GRAD INTERN [address] [place], [place] [address] Nurse Practitioner Psychiatry 09/19/20 Tori Hines, [facility] [address] [place], [place] [id number] Ged Preparation Teacher Ged Preparation Teacher - Clinical 09/19/20 Miranda Queen, [facility] [address] [place] [address] Pharmacist Pharmacist 11/12/20 Marisel Armando MD [address] [place] [address] 312175 Gastroenterology 02/05/21 Marisel Armando MD [address] [place] [address] [id number] Assigned Gastroenterology Provider 03/08/21 12/24/22 Wesley Barrett MD [address] [facility] [address] [place], [place] [address] Assigned Neuroscience Provider 05/10/21 Charles Jaramillo PA-C [address] [facility] 450 [place] [address] Assigned Musculoskeletal Provider 04/26/21 10/15/22 [place] [address] [place] [address] Assigned PCP 05/15/22 Katiana Read MD [address] [place] [address] Assigned Endocrinology Provider 06/19/22 [place] [address] [place] [address] Assigned Behavioral Health Provider 07/03/22 12/31/22 Deena Garza, CHILDREN'S SERVICE SUPERVISOR GRAD INTERN [address] [place] [address] Assigned Pain Medication Provider 07/19/22 10/29/22 documented as of this encounter
--- OUTSIDE RECORDS SUMMARY | 2023-08-03 10:06 | XMS_ITS | Encounter Summary ---
Author Name Unknown Organization [facility] Address [address] [place] [address]. [place] [address] Care Team Providers Care Spray Machine Tender Name Role Phone Jovany Gonzalez MD Unavailable CrissyStaci jeong PROCEDURE WRITER Unavailable [phone] Unavailable Roshni Nascimento RN Unavailable Unavailable Kiet Swain MD Unavailable [phone] Winsome Pike APRN CIAIO COUNTER MOLDER Unavailable [phone] Tori Hines [facility] Unavailable Miranda Queen [facility] Unavailable Unavailable Marisel Armando MD Unavailable Marisel Armando MD Unavailable Wesley Barrett MD Unavailable [phone] Charles Jaramillo PA-C Unavailable [phone] Dyan Fuentes MD Primary Care Provider [phone] Dyan Fuentes MD Unavailable [phone] Katiana Read MD Unavailable [phone] Meme Singleton PhD Unavailable [phone] Deena Garza MEDICAL AIDE CIAIO COUNTER MOLDER Unavailable [phone] Encounter Details Date Type Department Care Team (Latest Contact Info) Description 10/04/2022 Travel Social History Tobacco Use Types Packs/Day [...] How often do you attend chur or alevism services? 1 to 4 times per year [...] Answer Date Recorded PHQ-2 Score 0 06/14/2022 [facility] of Occupat ional Health - Occupational Stress [...] st Contact Info) Description 08/18/2023 3:00 PM EDITORIAL INTERN Office Visit [place] [address] [place] [phone] Katiana Read MD [address] [place], [place] [address] documented as of this encounter Visit Diagnoses Not on filedocumented in this encounter Additional Health Concerns Assessment Noted Time PHQ-9 Depression Total Score: 13 022 3:28 PM EDITORIAL INTERN documented as of this encounter Care Teams Spray Machine Tender Relationship Specialty [place] [address] [place] [address] PCP - General Family Medicine 05/18/22 Jovany Gonzalez MD [facility] [address] [facility] [address] [place], [place] [address] Orthopedics 02/15/17 Staci Woodward, PROCEDURE WRITER [facility] [address] [place], [place] [address] Nurse Practitioner Nurse Practitioner Psych/Mental Health 05/10/17 Reanna Smith, RD [facility] [address] [place], [place] [address] Cloud Services Architect Dietitian, Registered 07/25/19 Roshni Nascimento RN Personal Advocate & Liaison (PAL) Family Medicine 08/18/20 Kiet Swain MD 2450 [facility] [address] [place], [place] [address] Referring Physician Psychiatry 09/19/20 Winsome Pike APRN CIAIO COUNTER MOLDER [address] [place], [place] [phone] Nurse Practitioner Psychiatry 09/19/20 Tori Hines, [facility] [address] [place], [place] [address] Steel Fabricator Steel Fabricator - Clinical 09/19/20 Bernice Miranda [facility] [address] [place] [address] Pharmacist Pharmacist 11/12/20 Marisel Armando MD [address] [place], [place] [address] Gastroenterology 02/05/21 Marisel Armando MD [address] [place] [address] [id number] Assigned Gastroenterology Provider 03/08/21 12/24/22 Wesley Barrett MD 420 [facility] 96 [place], [place] [address] Assigned Neuroscience Provider 05/10/21 Charles Jaramillo PA-C 6545 [facility] [address] [place] [address] Assigned Musculoskeletal Provider 04/26/21 10/15/22 [place] [address] [place] [address] Assigned PCP 05/15/22 Katiana Read MD [address] [facility] [address] [place] [address] Assigned Endocrinology Provider 06/19/22 [place] [address] [place] [address] Assigned Behavioral Health Provider 07/03/22 12/31/22 Deena Garza APRN CIAIO COUNTER MOLDER [address] [place] [address] Assigned Pain Medication Provider 07/19/22 10/29/22 documented as of this encounter
--- OUTSIDE RECORDS SUMMARY | 2023-08-03 10:06 | XMS_ITS | Encounter Summary ---
Author Name Unknown Organization [facility] Address [address] [place] [address]. [place] [address] Care Team Providers Care Wire Mesh Gate Assembler Name Role Phone Jovany Gonzalez MD Unavailable CrissyStaci jeong TECHNICAL PROJECT LEAD Unavailable [phone] Unavailable Roshni Nascimento RN Unavailable Unavailable Kiet Swain MD Unavailable [phone] Winsome Pike APRN DOMINATRIX Unavailable [phone] Tori Hines [facility] Unavailable Miranda Queen [facility] Unavailable Unavailable Marisel Armando MD Unavailable Marisel Armando MD Unavailable Wesley Barrett MD Unavailable [phone] Charles Jaramillo PA-C Unavailable [phone] Dyan Fuentes MD Primary Care Provider [phone] Dyan Fuentes MD Unavailable [phone] Katiana Read MD Unavailable [phone] Meme Singleton PhD Unavailable [phone] Deena Garza DIRECTOR PARK DOMINATRIX Unavailable [phone] Reason for Referral * Diagnostic Imaging CT Scan (Routine) - Closed Specialty Diagnoses / Procedures Referred By Contac t Referred To Contact Diagnoses Nicotine dependence, uncomplicated, unspecified nicotine product type Personal history of nicotine dependence Personal history of tobacco use Procedures CT Chest Lung Cancer [place] [address] [place] [address] Referral ID Status Reason Start Date Expiration Date Visits Re quested Visits Authorized [id number] Closed 06/14/2022 06/14/2023 1 1 ERECTOR Reason for Visit * Diagnostic Imaging CT Scan (Routine) - Closed Specialty Diagnoses / Procedures Referred By Jose R kelly Referred To Contact Diagnoses Nicotine dependence, uncomplicated, unspecified nicotine product type Personal history of nicotine dependence Personal history of tobacco use Procedures CT Chest Lung [place] [address] [place] [address] Referral ID Status Reason Start Date Expiration Date Visits Re quested Visits Authorized [id number] Closed 06/14/2022 06/14/2023 1 1 Encounter Details Date Type Department Care Team (Latest Contact Info) Description 09/06/2022 3:27 PM SHIP ERECTOR - 09/06/2022 11:59 PM SHIP ERECTOR Hospital Encounter [facility] [address] [facility] [address] [place] [address] [place] [address] [place] [address] Nicotine dependence, uncomplicated, unspecified nicotine product type; Personal history of nicotine dependence; Personal history of tobacco use Discharge Disposition: Home or Self Care Social [...] How often do you attend chur or shinto services? 1 to 4 times per year [...] Answer Date Recorded PHQ-2 Score 0 06/14/2022 [facility] - Occupational Stress Questionnaire Answer Date Recorded [...] place to sleep or slept in a intermediate (including now)? No 10/16/2021 Education Answer Date [...] Coronavirus/COVID-19? No / Unsure 09/06/2022 2:05 PM SHIP ERECTOR documented as of this encounter Medications at Time of Discharge Medication Sig Dispensed Refills Start Date End Date calcium carbonate (OS-ALISA) 1500 (600 Ca) MG tabletIndications:Tob acco dependence Take 1 tablet (600 mg) by mouth 2 times daily (with meals) 100 tablet 0 05/06/2021 Continuous Blood Gluc Administrative Services Specialist (DEXCOM G6 GLUING MACHINE OPERATOR) DEVIIndications:Type 2 diabetes mellitus without complication, with [...] by mouth daily 100 capsule 1 05/06/2021 acetaminophen (TYLENOL) 325 MG tabletIndications:Pos t-op pain [...] daily OK to fill 08/22/22 start 08/24/22 90 Film 0 08/19/2022 09/20/2022 chlorhexidine (PERIDEX) 0.12 % solution Take 15 [...] (NARCAN) nasal sprayIndications:At risk for substance overdose [place] 1 spray (4 mg) into one nostril alternating nostrils as needed 0.2 mL 0 11/19/2016 11/11/2022 nystatin (MYCOSTATIN) 261374 UNIT/GM external ointmentIndications:S kin rash Apply topically [...] mouth daily 90 tablet 3 06/14/2022 05/12/2023 polyethylene glycol (MIRALAX) 17 GM/Dose powderIndications:Pos t-op pain Take 17 g by mouth daily 510 g 0 11/16/2021 10/15/2022 risperiDONE (RISPERDAL M-TABS) 0.5 MG ODTIndications: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 (H),PTSD (post-traumatic stress disorder) DISSOLVE 1 TABLET ON TONGUE EVERY DAY IN THE MORNING, AND 1/2 TAB AT BEDTIME 135 tablet 1 09/23/2021 10/25/2022 rosuvastatin (CRESTOR) 40 MG tabletIndications:Hyp ertriglyceridemia,Hyp erlipidemia LDL goal <100 Take 1 tablet (40 mg) by mouth daily 90 tablet 3 06/14/2022 05/12/2023 vitamin D3 (CHOLECALCIFEROL) 1.25 MG (18753 UT) capsuleIndications:Vi tamin D deficiency Take 50,000 Units by mouth every 7 days Mondays 100 capsule 0 05/06/2021 10/26/2022 documented as of this encounter Plan of Treatment Upcoming Encounters Date Type Department Care Team (Late st Contact Info) Description 08/18/2023 3:00 PM SHIP ERECTOR Office Visit [facility] [address] [facility] [address] [place] [address] Katiana Read MD [address] [facility] [address] [place] [address] documented as of this encounter Procedures Procedure Name Priority Date/Time Associated Diagnosis Comments CT CHEST LUNG CANCER SCREEN LOW DOSE WITHOUT Routine 09/06/2022 3:46 PM SHIP ERECTOR Nicotine dependence, uncomplicated, unspecified nicotine product type Personal history of nicotine dependence Personal history of tobacco use documented in this encounter Results * CT Chest Lung Cancer Scrn Low Dose wo (09/06/2022 3:46 PM SHIP ERECTOR) Anatomical Region Laterality Modality Chest, SUBRAD CT BODY, UMP CT CHEST, RAD CT Computed Tomography Impressions 09/08/2022 11:55 AM SHIP ERECTOR IMPRESSION: 1. ACR Assessment Category: ??Lung-RADS Category 2. Benign appearance or behavior. Recommendation: Continue annual screening, if clinically relevant (please order exam code IMG 2290). 2. Significant Incidental Finding(s): ??Category S: Yes. * ??Moderate atherosclerotic vascular calcification of the coronary arteries. * ??Hepatic steatosis. ?? Download the LungRADS Assessment Categories table at this site: http://www.acr.org/Quality-Safety/Resources/LungRADS ?? ANDREA BRANCH MD SYSTEM ID: ??[id number] Narrative 09/08/2022 11:[address] CHEST LUNG CANCER SCREEN LOW DOSE WITHOUT CONTRAST ??09/06/2022 3:46 PM HISTORY: ??Nicotine dependence, uncomplicated, unspecified nicotine product type. Personal history of nicotine dependence. Personal history of tobacco use. TECHNIQUE: ??Scans obtained from the apices through the diaphragm without IV contrast. Low dose CT chest technique was utilized. Radiation dose for this scan was reduced using automated exposure control, adjustment of the mA and/or kV according to patient size, or iterative reconstruction technique. COMPARISON: ??Chest CTA on 08/19/[address] chest, abdomen and pelvis on 08/09/2020. FINDINGS: Chest/mediastinum: Retained left central catheter, not significantly changed as compared to 08/19/2020. No cardiomegaly or significant pericardial effusion. Moderate atherosclerotic vascular calcification of the coronary arteries. The main pulmonary artery is large measuring 3.8 cm in transverse diameter. No significant mediastinal or hilar lymphadenopathy. Lung/pleura: No pleural effusion or pneumothorax. Mild basilar pulmonary opacities, likely atelectasis. Scattered pulmonary nodules including a 5 mm left lower lobe nodule (series 6 image 201), 6 mm right lower lobe subpleural nodule (series 6 image 182) and 3 mm right upper lobe nodule (series 6 image 79), all not definitely changed as compared to 08/09/2020 exam. Upper abdomen: Limited evaluation of the upper abdomen due to lack of coverage, contrast and low-dose technique. Diffuse hypodense appearance of the liver, likely due to underlying hepatic steatosis. Bones and soft tissue: Multilevel degenerative changes of the spine. Postsurgical changes of lower cervical spine fusion. Dyan Fuentes MD IMG CT ORDERABLES documented in this encounter Visit Diagnoses Diagnosis Nicotine dependence, uncomplicated, unspecified nicotine product type Personal history of nicotine dependence Personal history of tobacco use, presenting hazards to health Personal history of tobacco use Personal history of tobacco use, presenting hazards to health documented in this encounter Additional Health Concerns Assessment Noted Time PHQ-9 Depression Total Score: 13 022 3:28 PM SHIP ERECTOR documented as of this encounter Care Teams Wire Mesh Gate Assembler Relationship Specialty [place] [address] [place] [address] PCP - General Family Medicine 05/18/22 Jovany Gonzalez MD [facility] [address] [facility] [address] [place], [place] [address] Orthopedics 02/15/17 Staci Woodwadr NP [place] [address] [place], [place] [address] Nurse Practitioner Nurse Practitioner Psych/Mental Health 05/10/17 Reanna Smith, [facility] [address] [place], [place] [address] Circulation Analyst Dietitian, Registered 07/25/19 Roshni Nascimento, RN Personal Advocate & Liaison (PAL) Family Medicine 08/18/20 Kiet Swain MD [address] [place] [id number] Referring Physician Psychiatry 09/19/20 Winsome Pike APRN DOMINATRIX [address] [place] [address] Nurse Practitioner Psychiatry 09/19/20 Tori Hines, [facility] [address] [place] [address] Fancy Stitcher Fancy Stitcher - Clinical 09/19/20 Richardrene Miranda, [facility] [address] [place] [address] Pharmacist Pharmacist 11/12/20 Marisel Armando MD [address] [place], [place] [address] Gastroenterology 02/05/21 Marisel Armando MD [address] [place] [address]245 Assigned Gastroenterology Provider 03/08/21 12/24/22 Wesley Barrett MD 420 [facility] 96 [place], [place] [address] Assigned Neuroscience Provider 05/10/21 Charles Jaramillo PA-C [address] [address] Assigned Musculoskeletal Provider 04/26/21 10/15/22 [place] [address] [place] [address] Assigned PCP 05/15/22 Katiana Read MD [address] [facility] [address] [place] [address] Assigned Endocrinology Provider 06/19/22 [place]e [place] [address] [place] [address] Assigned Behavioral Health Provider 07/03/22 12/31/22 Deena Garza, DIRECTOR PARK DOMINATRIX [address] [place] [address] Assigned Pain Medication Provider 07/19/22 10/29/22 documented as of this encounter
--- OUTSIDE RECORDS SUMMARY | 2023-08-03 10:06 | XMS_ITS | Encounter Summary ---
Author Name Unknown Organization [place] Address [address] [place] [address]. [place] [address] Care Team Providers Care Export Sales Manager Name Role Phone Jovany Gonzalez MD Unavailable CrissyStaci jeong NP Unavailable [phone] Unavailable [phone] Roshni Nascimento RN Unavailable Unavailable Kiet Swain MD Unavailable [phone] Winsome Pike APRN LEASES AND LAND SUPERVISOR Unavailable [phone] Tori Hines [facility] Unavailable Miranda Queen [facility] Unavailable Unavailable Marisel Armando MD Unavailable Marisel Armando MD Unavailable Inderjit Ugalde MD Unavailable [phone] Wesley Barrett MD Unavailable [phone] Charles Jaramillo PA-C Unavailable +[phone] Dyan Fuentes MD Primary Care Provider +[phone] Dyan Fuentes MD Unavailable +[phone] Katiana Read MD Unavailable [phone] Meme Singleton PhD Unavailable +[phone] Regina Garzaine Lashell VIDHI LEASES AND LAND SUPERVISOR Unavailable + Mary Del Cid NP Unavailable +[phone] Elham Stack [facility] Unavailable +[phone] Emerita Potter [facility] Unavailable [phone] Mary Del Cid NP Unavailable +[phone] Michelle Guzman DPM, Podiatry /Foot and Ankle Surgery Unavailable Dyan Fuentes MD Unavailable +[phone] Mary Del Cid NP Unavailable +[phone] Aubrey Jones MD Unavailable +[phone] Blanquita Morales Unavailable Unavailable Aubrey Jones MD Unavailable + [phone] Encounter Details Date Type Department Care Team (Late st Contact Info) Description 08/19/2022 MyC Medical Advice [facility] Neurosurgery [address] [address] Caryl Wheeler MA Social History Tobacco Use Types Packs/Day Years [...] often do you attend chur ch or christian services? 1 to 4 times per year 10/16/2021 Do you belong to any clubs o r organizations such as orthodoxy groups, unions, fraternal or athletic groups, or [...] Answer Date Recorded PHQ-2 Score 0 06/14/2022 [facility] - Occupational [...] place to sleep or slept in a custodial (including now)? No 10/16/2021 Education Answer Date [...] Coronavirus/COVID-19? Unable to assess 08/18/2022 11:00 AM STEWARD/STEWARDESS DINING ROOM documented as of this encounter Plan of Treatment Upcoming Encounters Date Type Department Care Team (Late st Contact Info) Description 08/18/2023 3:00 PM STEWARD/STEWARDESS DINING ROOM Office Visit [facility] [address] [place] [address] Katiana Read MD [address] 200 [place] [address] documented as of this encounter [...] Depression Total Score: 13 022 3:28 PM STEWARD/STEWARDESS DINING ROOM documented as of this encounter Care Teams Export Sales Manager Relationship Specialty [place] [address] [place] [address] PCP - General Family Medicine 05/18/22 Jovany Gonzalez MD [facility] [address] [facility] [address] [place], [place] [address] Orthopedics 02/15/17 Staci Woodward, MATTE CUTTER [place] [address] [place] [address] Nurse Practitioner Nurse Practitioner Psych/Mental Health 05/10/17 Reanna Smith, LAURA [place] [address] [place], [place] [address] Flight Readiness Technician Dietitian, Registered 07/25/19 Roshni Nascimento, RN Personal Advocate & Liaison (PAL) Family Medicine 08/18/20 Kiet Swain MD [address] [place] [address] Referring Physician Psychiatry 09/19/20 Winsome Pike APRN LEASES AND LAND SUPERVISOR [address] [place] [address] Nurse Practitioner Psychiatry 09/19/20 Tori Hines, [facility] [address] [place] [address] Mail Messenger Mail Messenger - Clinical 09/19/20 Miranda Queen [facility] [address] [facility] [place] [address] Pharmacist Pharmacist 11/12/20 Marisel Armando MD [address] [place] [address] Gastroenterology 02/05/21 Marisel Armando MD [address] [place] [address] Assigned Gastroenterology Provider 03/08/21 12/24/22 Inderjit Ugalde MD [address] [facility] 300 [place], [place] [address] Assigned Surgical Provider 02/15/21 08/20/22 Wesley Barrett MD [address] [facility] 96 [place], [place] [address] Assigned Neuroscience Provider 05/10/21 Charles Jaramillo PA-C [address] 6[address]75 Assigned Musculoskeletal Provider 04/26/21 10/15/22 [place] [address] [place] [address] Assigned PCP 05/15/22 Katiana Read MD [address] [facility] 200 [place], [place] [address] Assigned Endocrinology Provider 06/19/22 Meme [place] PhD [address] [place] [address] Assigned Behavioral Health Provider 07/03/22 12/31/22 Deena Garza, SENIOR ASP NET DEVELOPER LEASES AND LAND SUPERVISOR [address] [place] [place] [place] [address] Assigned Pain Medication Provider 07/19/22 10/29/22 [place] [address] [place] [address] Nurse Practitioner Nurse Practitioner 10/18/22 Elham Stack, [facility] [address] [place], [place] [address] Pharmacist Pharmacist 10/19/22 Emerita Potter, [facility] Clinic Nursing Staffing Coordinator Mail Messenger - Clinical 10/29/22 11/02/22 Mary Del Cid, RAFAEL [address] [place] [place] [place] [address] Assigned Pain Medication Provider 10/30/22 12/03/22 Michelle Guzman DPAlisha, Podiatry/Foot and Ankle Surgery [address] [place] [place] [address] Assigned Musculoskeletal Provider 10/16/22 04/08/23 [place] [address] [place] [address] Assigned Pain Medication Provider 12/04/22 04/01/23 [place] [address] [place] [address] Nurse Practitioner Nurse Practitioner 01/17/23 01/17/23 Aubrey Jones MD [address] [place] [address] Cardiovascular Disease 03/28/23 Blanquita Morales Flight Readiness Technician Diabetes Education 04/25/23 Aubrey Jones MD [address] [place] [address] Assigned Heart and Vascular Provider 05/07/23 documented as of this encounter
--- OUTSIDE RECORDS SUMMARY | 2023-08-03 10:06 | XMS_ITS | Encounter Summary ---
Author Name Unknown Organization [place] Address [address] [place] [address]. [place] [address] Care Team Providers Care Hospital Pharmacy Technician Name Role Phone Jovany Gonzalez MD Unavailable CrissyStaci jeong NP Unavailable [phone] Unavailable [phone] Roshni Nascimento RN Unavailable Unavailable Kiet Swain MD Unavailable [phone] Winsome Pike APRN EMERGENCY DOCTOR Unavailable [phone] Tori Hines [facility] Unavailable Miranda Queen [facility] Unavailable Unavailable Marisel Armando MD Unavailable Marisel Armando MD Unavailable Inderjit Ugalde MD Unavailable [phone] Wesley Barrtet MD Unavailable [phone] Charles Jaramillo PA-C Unavailable +[phone] Dyan Fuentes MD Primary Care Provider +[phone] Dyan Fuentes MD Unavailable [phone] Katiana Read MD Unavailable [phone] Meme Singleton PhD Unavailable [phone] Regina Garzaine Arelis VIDHI EMERGENCY DOCTOR Unavailable [phone] Mary Del Cid NP Unavailable + [phone] Elham Stack [facility] Unavailable [phone] Emerita Potter [facility] Unavailable [phone] Mary Del Cid FLEET MECHANIC Unavailable + [phone] Michelle Guzman DPM, Podiatry /Foot and Ankle Surgery Unavailable Dyan Fuentes MD Unavailable [phone] Mary Del Cid NP Unavailable +[phone] Aubrey Jones MD Unavailable [phone] Blanquita Morales Unavailable Unavailable Aubrey Jones MD Unavailable + [phone] Reason for Visit * Reason Onset Date Comments MyChart Communication 07/08/2022 Encounter Details Date Type Department Care Team (Latest Contact Info) Description 07/08/2022 MyC Medical Advice [address] [address] Lynda Oliver, [facility] [address] MyChart Communication Social History Tobacco Use Types [...] often do you attend chur ch or scientologist services? 1 to 4 times [...] Answer Date Recorded PHQ-2 Score 0 06/14/2022 [facility] Occupat ional Health - Occupational [...] suspected to have Coronavirus/COVID-19? No / Unsure 06/14/2022 2:05 PM MOLD FORMS BUILDER documented as of this encounter Plan of Treatment Upcoming Encounters Date Type Department Care Team (Late st Contact Info) Description 08/18/2023 3:00 PM MOLD FORMS BUILDER Office Visit [facility] [address] [facility] [address] [place] [address] Katiana Read MD [address] [place] [address] 200 [place] [address] documented as of this encounter Visit Diagnoses [...] Depression Total Score: 13 022 3:28 PM MOLD FORMS BUILDER documented as of this encounter Care Teams Hospital Pharmacy Technician Relationship Specialty [place] [address] [place] [address] PCP - General Family Medicine 05/18/22 Jovany Gonzalez MD [facility] [address] [facility] [address] [place] [address] Orthopedics 02/15/17 Staci Woodward, FLEET MECHANIC [place] [address] [place], [place] [address] Nurse Practitioner Nurse Practitioner Psych/Mental Health 05/10/17 Reanna Smith, RD [place] [address] [place] [address] Recreational Resort Manager Dietitian, Registered 07/25/19 Roshni Nascimento, RN Personal Advocate & Liaison (PAL) Family Medicine 08/18/20 Kiet Swain MD [address] [place], [place] [address] [place], [place] [address] Referring Physician Psychiatry 09/19/20 Winsome Pike, VIDHI EMERGENCY DOCTOR [address] [place] [address] Nurse Practitioner Psychiatry 09/19/20 Tori Hines, [facility] [address] [place] [address] Diamond Finishing Supervisor Diamond Finishing Supervisor - Clinical 09/19/20 Huonga Miranda, [facility] [address] [place] [address] Pharmacist Pharmacist 11/12/20 Marisel Armando MD 909 [place] [address] Gastroenterology 02/05/21 Marisel Armando MD [address] [place] [address] Assigned Gastroenterology Provider 03/08/21 12/24/22 Inderjit Ugalde MD [address] [facility] 300 [place] [address] Assigned Surgical Provider 02/15/21 08/20/22 Wesley Barrett MD 420 [facility] 96 [place] [address] Assigned Neuroscience Provider 05/10/21 Charles Jaramillo PA-C 6545 [facility] 450 [place] [address] Assigned Musculoskeletal Provider 04/26/21 10/15/22 [place] [address] [place] [address] Assigned PCP 05/15/22 Katiana Read MD [address] 200 [place] [address] Assigned Endocrinology Provider 06/19/22 [place] [address] [place] [address] Assigned Behavioral Health Provider 07/03/22 12/31/22 Deena Garza APRN CNP [address] [place] [address] Assigned Pain Medication Provider 07/19/22 10/29/22 [place] [address] [place] [address] Nurse Practitioner Nurse Practitioner 10/18/22 Elham Stack, [facility] [address] [place] [address] Pharmacist Pharmacist 10/19/22 Emerita Potter, [facility] Clinic Parts Puller Diamond Finishing Supervisor - Clinical 10/29/22 11/02/22 [place] [address] [place] [address] Assigned Pain Medication Provider 10/30/22 12/03/22 Michelle Guzman DPM, Podiatry/Foot and Ankle Surgery [address] [place] [address] Assigned Musculoskeletal Provider 10/16/22 04/08/23 [place] [address] [place] [address] Assigned Pain Medication Provider 12/04/22 04/01/23 [place] [address] [place] [address] Nurse Practitioner Nurse Practitioner 01/17/23 01/17/23 Aubrey Jones MD [address] [place] [address] Cardiovascular Disease 03/28/23 Blanquita Morales Recreational Resort Manager Diabetes Education 04/25/23 Aubrey Jones MD [address] [place] [address] Assigned Heart and Vascular Provider 05/07/23 documented as of this encounter
--- OUTSIDE RECORDS SUMMARY | 2023-08-03 10:07 | XMS_ITS | Encounter Summary ---
Author Name Unknown Organization [place] Address [address] [place] [address]. [place] [address] Care Team Providers Care Bending Press Operator Name Role Phone Len Adhikari MD Primary Care Provider + [phone] Jovany Gonzalez MD Unavailable CrissyStaci jeong NP Unavailable [phone] Unavailable [phone] Roshni Nascimento RN Unavailable Unavailable Kiet Swain MD Unavailable [phone] Winsome Pike APRN CIGAR MAKING MACHINE SUPERVISOR Unavailable +[phone] Tori HinesSW Unavailable Miranda Queen [facility] Unavailable Unavailable Winsome Pike APRN CIGAR MAKING MACHINE SUPERVISOR Unavailable [phone] Marisel Armando MD Unavailable Marisel Armando MD Unavailable Inderjit Ugalde MD Unavailable [phone] Wesley Barrett MD Unavailable [phone] Charles Jaramillo PA-C Unavailable +[phone] Leeann Rinaldi MD Unavailable Miranda Queen [facility] Unavailable Unavailable Dyan Fuentes MD Primary Care Provider [phone] Dyan Fuentes MD Unavailable +[phone] Katiana Read MD Unavailable +[phone] Meme Singleton PhD Unavailable + Greg Deena L GOVERNMENT DOCUMENTS LIBRARIAN CIGAR MAKING MACHINE SUPERVISOR Unavailable +[phone] Mary Del Cid NP Unavailable +[phone] SreekanthElham Anthony [facility] Unavailable +[phone] [address] Emerita Alisha BARMAN Unavailable +[phone] Mary Del Cid NP Unavailable +[phone] Michelle Guzman DPM, Podiatry /Foot and Ankle Surgery Unavailable Dyan Fuentes MD Unavailable + [phone] Mary Del Cid NP Unavailable +[phone] Aubrey Jones MD Unavailable +[phone] Blanquita Morales Unavailable Unavailable Aubrey Jones MD Unavailable [phone] Encounter Details Date Type Department Care Team (Late st Contact Info) Description 04/14/2022 [facility] Medical Advice [address] [address] Roshni Nascimento, RN Social History Tobacco Use Types Packs/Day Years Used Date Smoking Tobacco: Every Day Cigarettes 0.5 40 Smokeless Tobacco: Never Comments:down to 4 cigs [...] How often do you attend [facility] or confucianist services? 1 to 4 times per year [...] PHQ-2 Answer Date Recorded PHQ-2 Score 2 02/02/2021 [facility] Occupat ional Health - Occupational Stress [...] place to sleep or slept in a usp (including now)? No 10/16/2021 Education Answer Date [...] suspected to have Coronavirus/COVID-19? No / Unsure 04/16/2022 9:31 AM CDT documented as of this encounter Plan of Treatment Upcoming Encounters Date Type Department Care Team (Late st Contact Info) Description 08/18/2023 3:00 PM SENIOR CREDIT ANALYST Office Visit [facility] [address] [facility] [address] [place] [address] Katiana Read MD [address] [facility] 200 [place] [address] documented as of this encounter [...] Assessment Noted Time PHQ-9 Depression Total Score: 12 021 4:21 PM CDT documented as of this encounter Care Teams Bending Press Operator Relationship Specialty Start Date End Date Len Adhikari MD PCP - General Family Practice 11/08/16 05/09/22 [place] [address] [place], [place] [address] PCP - General Family Medicine 05/18/22 Jovany Gonzalez MD [facility] [address] [facility] [address] [place], [place] [address] Orthopedics 02/15/17 Staci Woodward, LIABILITY CLAIMS ADJUSTER [place] [address] [place], [place] [address] Nurse Practitioner Nurse Practitioner Psych/Mental Health 05/10/17 Reanna Smith, LAURA [facility] [address] [place], [place] [address] International Sourcing Manager Dietitian, Registered 07/25/19 Roshni Nascimento, RN Personal Advocate & Liaison (PAL) Family Medicine 08/18/20 Kiet Swain MD 2450 [facility] [address] [place], [place] [address] Referring Physician Psychiatry 09/19/20 Winsome Pike APRN CIGAR MAKING MACHINE SUPERVISOR [address] [place] [address]684 Nurse Practitioner Psychiatry 09/19/20 Tori Hines [facility] 2450 [place], [place] [address] Track Rider Track Rider - Clinical 09/19/20 Miranda Queen [facility] [address] [place] [address] Pharmacist Pharmacist 11/12/20 Winsome Pike APRN CIGAR MAKING MACHINE SUPERVISOR [address] [place] [address] 815794 Assigned Behavioral Health Provider 01/04/21 07/02/22 Marisel Armando MD [address] [place] [address] 271605 Gastroenterology 02/05/21 Marisel Armando MD [address] [place] [address] 363015 Assigned Gastroenterology Provider 03/08/21 12/24/22 Inderjit Ugalde MD [address] [facility] 300 [place], [place] [address] Assigned Surgical Provider 02/15/21 08/20/22 Wesley Barrett MD [address] [place] [address] 96 [place], [place] [address] Assigned Neuroscience Provider 05/10/21 Charles Jaramillo PA-C [address] [address] Assigned Musculoskeletal Provider 04/26/21 10/15/22 [place] [address] [place] [address] Assigned PCP 01/23/22 05/14/22 Miranda Queen [facility] [address] [place] [address] Assigned MTM Pharmacist 04/07/22 05/14/22 [place] [address] [place] [address] Assigned PCP 05/15/22 Katiana Read MD [address] 0316[address] Assigned Endocrinology Provider 06/19/22 Meme Singleton, PhD [address] [place], [place] [address] Assigned Behavioral Health Provider 07/03/22 12/31/22 Deena Garza, GOVERNMENT DOCUMENTS LIBRARIAN CIGAR MAKING MACHINE SUPERVISOR [address] [place] [address] Assigned Pain Medication Provider 07/19/22 10/29/22 Mary Del Cid, RAFAEL [address] [place] [address] Nurse Practitioner Nurse Practitioner 10/18/22 Elham Stack, [facility] 30[address] [place] [address] Pharmacist Pharmacist 10/19/22 Emerita Potter, [facility] Clinic Snow Removing Supervisor Track Rider - Clinical 10/29/22 11/02/22 [place] [address] [place] [address] Assigned Pain Medication Provider 10/30/22 12/03/22 Michelle Guzman, DPM, Podiatry/Foot and Ankle Surgery [address] [place] [address] Assigned Musculoskeletal Provider 10/16/22 04/08/23 [place] [address] [place] [address] Assigned Pain Medication Provider 12/04/22 04/01/23 [place] [address] [place] [address] Nurse Practitioner Nurse Practitioner 01/17/23 01/17/23 Aubrey Jones MD [address] [place] [address] Cardiovascular Disease 03/28/23 Blanquita Morales International Sourcing Manager Diabetes Education 04/25/23 Aubrey Jones MD [address] [place] [address] Assigned Heart and Vascular Provider 05/07/23 documented as of this encounter
--- OUTSIDE RECORDS SUMMARY | 2023-08-03 10:07 | XMS_ITS | Encounter Summary ---
Author Name Unknown Organization [facility] Address [address] [place] [address]. [place] [address] Care Team Providers Care Event Sales Representative Name Role Phone Jovany Gonzalez MD Unavailable CrissyStaci jeong NP Unavailable [phone] Unavailable Roshni Nascimento RN Unavailable Unavailable Kiet Swain MD Unavailable [phone] Winsome Pike APRN TELECOM ASSISTANT Unavailable [phone] Tori Hines [facility] Unavailable Miranda Queen [facility] Unavailable Unavailable Marisel Armando MD Unavailable Marisel Armando MD Unavailable Inderjit Ugalde MD Unavailable [phone] Wesley Barrett MD Unavailable [phone] Charles Jaramillo PA-C Unavailable +[phone] Dyan Fuentes MD Primary Care Provider +[phone] Dyan Fuentes MD Unavailable [phone] Katiana Read MD Unavailable [phone] Meme Singleton PhD Unavailable [phone] Regina Garzaine L MILLINERY SALESPERSON TELECOM ASSISTANT Unavailable + Mary Del Cid NP Unavailable + [phone] Elham Stack [facility] Unavailable [phone] Emerita Potter [facility] Unavailable [phone] Mary Del Cid NP Unavailable + [phone] Michelle Guzman DPM, Podiatry /Foot and Ankle Surgery Unavailable Dyan Fuentes MD Unavailable [phone] Mary Del Cid NP Unavailable +[phone] Aubrey Jones MD Unavailable [phone] Blanquita Morales Unavailable Unavailable Aubrey Jones MD Unavailable + [phone] Encounter Details Date Type Department Care Team (Late st Contact Info) Description 07/06/2022 MyC Medical Advice [facility] [id number] [place] [id number] Lynda Oliver, TECHNICAL SOLUTIONS DIRECTOR Social History Tobacco Use Types Packs/Day Years [...] often do you attend chur ch or baptist services? 1 to 4 times per year 10/16/2021 Do you belong to any clubs o r organizations such as sikh groups, unions, fraternal or athletic groups, or [...] Answer Date Recorded PHQ-2 Score 0 06/14/2022 [facility] Occupat ional Health [...] Coronavirus/COVID-19? No / Unsure 06/14/2022 2:05 PM BREWERY REPRESENTATIVE documented as of this encounter Plan of Treatment Upcoming Encounters Date Type Department Care Team (Late st Contact Info) Description 08/18/2023 3:00 PM BREWERY REPRESENTATIVE Office Visit [facility] [address] [facility] [address] [place] [address] Katiana Read MD [address] [address] [place] [address] documented as of this encounter Visit Diagnoses [...] Depression Total Score: 13 022 3:28 PM BREWERY REPRESENTATIVE documented as of this encounter Care Teams Event Sales Representative Relationship Specialty [place] [address] [place] [address] PCP - General Family Medicine 05/18/22 Jovany Gonzalez MD [facility] [address] [facility] [address] [place], [place] [address] Orthopedics 02/15/17 Staci Woodward, BOTTOM TURNING LATHE TURNER [place] [address] [place], [place] [phone] Nurse Practitioner Nurse Practitioner Psych/Mental Health 05/10/17 Reanna Smith, RD [place] [address] [place], [place] 9[address] Picture Framer Dietitian, Registered 07/25/19 Roshni Nascimento, RN Personal Advocate & Liaison (PAL) Family Medicine 08/18/20 Kiet Swain MD [address] [place] [address] 244534 Referring Physician Psychiatry 09/19/20 Winsome Pike APRN TELECOM ASSISTANT [address] [id number] Nurse Practitioner Psychiatry 09/19/20 Tori Hines, [facility] [address] [place] [address] Information Assistant Information Assistant - Clinical 09/19/20 Miranda Queen [facility] [address] [facility] [place] [place] [address] Pharmacist Pharmacist 11/12/20 Marisel Armando MD [address] [place] [address] Gastroenterology 02/05/21 Marisel Armando MD [address] [place] [address] Assigned Gastroenterology Provider 03/08/21 12/24/22 Inderjit Ugalde MD [address] [facility] 300 [place], [place] [id number] Assigned Surgical Provider 02/15/21 08/20/22 Wesley Barrett MD [address] [facility] 96 [place], [place] [address] Assigned Neuroscience Provider 05/10/21 Charles Jaramillo PA-C [address] 257925 Assigned Musculoskeletal Provider 04/26/21 10/15/22 [place] [address] [place] [address] Assigned PCP 05/15/22 Katiana Read MD [address] [facility] 200 [place], [place] [address] Assigned Endocrinology Provider 06/19/22 Meme Singleton[place] PhD [address] [place] [address] Assigned Behavioral Health Provider 07/03/22 12/31/22 Deena Garza, MILLINERY SALESPERSON TELECOM ASSISTANT [address] [place] [place] [address] Assigned Pain Medication Provider 07/19/22 10/29/22 [place] [address] [place] [address] Nurse Practitioner Nurse Practitioner 10/18/22 Elham Stack, [facility] [address] [place], [place] [address] Pharmacist Pharmacist 10/19/22 Emerita Potter, [facility] Clinic Csr Retail Information Assistant - Clinical 10/29/22 11/02/22 Mary Del Cid, RAFAEL [address] [facility] [address] Assigned Pain Medication Provider 10/30/22 12/03/22 Michelle Guzman DPM, Podiatry/Foot and Ankle Surgery [address] [place] [place] [address] Assigned Musculoskeletal Provider 10/16/22 04/08/23 [place] [address] [place] [address] Assigned Pain Medication Provider 12/04/22 04/01/23 [place] [address] [place] [address] Nurse Practitioner Nurse Practitioner 01/17/23 01/17/23 Aubrey Jones MD [address] [place] [address] Cardiovascular Disease 03/28/23 Blanquita Morales Picture Framer Diabetes Education 04/25/23 Aubrey Jones MD [address] [place] [address] Assigned Heart and Vascular Provider 05/07/23 documented as of this encounter
--- OUTSIDE RECORDS SUMMARY | 2023-08-03 10:07 | XMS_ITS | Encounter Summary ---
Author Name Unknown Organization [facility] Address [address] [place] [address]. [place] [address] Care Team Providers Care Client Relations Associate Name Role Phone Jovany Gonzalez MD Unavailable CrissyStaci jeong NP Unavailable [phone] Unavailable Roshni Nascimento RN Unavailable Unavailable Kiet Swain MD Unavailable [phone] Winsome Pike APRN CLINICAL LEADER Unavailable [phone] Tori Hines [facility] Unavailable Miranda Queen [facility] Unavailable Unavailable Winsome Pike APRN CLINICAL LEADER Unavailable [phone] Marisel Armando MD Unavailable Marisel Armando MD Unavailable Inderjit Ugalde MD Unavailable [phone] Wesley Barrett MD Unavailable [phone] Charles Jaramillo PA-C Unavailable +[phone] Dyan Fuentes MD Primary Care Provider [phone] Dyan Fuentes MD Unavailable [phone] Katiana Read MD Unavailable [phone] Meme Singleton PhD Unavailable +[phone] GregDeena BLOOD DONOR RECRUITER SUPERVISOR CLINICAL LEADER Unavailable + Mary Del Cid CLIENT SUPPORT MANAGER Unavailable +5401 Elham Stack [facility] Unavailable [phone] Emerita Potter [facility] Unavailable [phone] Mary Del Cid CLIENT SUPPORT MANAGER Unavailable +[phone] Michelle Guzman DPM, Podiatry /Foot and Ankle Surgery Unavailable Dyan Fuentes MD Unavailable [phone] Mary Del Cid NP Unavailable +[phone] Aubrey Jones MD Unavailable [phone] Blanquita Morales Unavailable Unavailable Aubrey Jones MD Unavailable [phone] Encounter Details Date Type Department Care Team (Late st Contact Info) Description 06/14/2022 [facility] Advice [address] [address] Torri Benites V, RN Social [...] often do you attend chur ch or evangelical services? 1 to 4 times per year 10/16/2021 Do you belong to any clubs o r organizations such as restorationist groups, unions, fraternal or athletic groups, or [...] Answer Date Recorded PHQ-2 Score 0 06/14/2022 [facility] Occupat ional [facility] - Occupational Stress Questionnaire Answer [...] Coronavirus/COVID-19? No / Unsure 06/14/2022 2:05 PM RESEARCH AND DEVELOPMENT MANAGER documented as of this encounter Miscellaneous Notes * Telephone Encounter - Torri Benites RN - 06/15/2022 10:40 AM RESEARCH AND DEVELOPMENT MANAGER Pt is scheduled for today at 1230 for VV ARCH AND DEVELOPMENT MANAGER * Telephone Encounter - Torri Benites RN - 06/15/2022 8:28 AM RESEARCH AND DEVELOPMENT MANAGER LM at home and mobile to c/b to discuss below. Taomeet message sent as well. ARCH AND DEVELOPMENT MANAGER * Telephone Encounter - Torri Benites RN - 06/14/2022 3:43 PM RESEARCH AND DEVELOPMENT MANAGER LM for pt to c/b to offer 06/15/22 at 1230 VV. Pt preferred phone call. ARCH AND DEVELOPMENT MANAGER * Telephone Encounter - Katiana Read MD - 06/14/2022 3:29 PM RESEARCH AND DEVELOPMENT MANAGER 06/15/2022 at 1230- video. ARCH AND DEVELOPMENT MANAGER * Telephone Encounter - Torri Benites RN - 06/14/2022 1:34 PM RESEARCH AND DEVELOPMENT MANAGER Spoke to patient, patients states she has an appointment at 230 and does not think she will be homein time for a 430 video visit. Please advise if pt should be added on somewhere else. ARCH AND DEVELOPMENT MANAGER * Telephone Encounter - Katiana Read MD - 06/14/2022 12:54 PM RESEARCH AND DEVELOPMENT MANAGER Note: Please add on pt at 430 for video visit. Last visit 2019? TSH Date Value Ref Range Status 06/12/2022 290.00 (H) 0.30 - 4.20 uIU/mL Final 06/08/2021 35.36 (H) 0.40 - 4.00 mU/L Final 08/19/2020 0.70 0.40 - 4.00 mU/L Final ARCH AND DEVELOPMENT MANAGER * Telephone Encounter - Nih Wong RN - 06/14/2022 12:44 PM RESEARCH AND DEVELOPMENT MANAGER Last visit 2019? Is she taking thyroid medication? Can you please check with pt? ?? ARCH AND DEVELOPMENT MANAGER documented in this encounter Plan of Treatment Upcoming Encounters Date Type Department Care Team (Late st Contact Info) Description 08/18/2023 3:00 PM RESEARCH AND DEVELOPMENT MANAGER Office Visit [facility] [address] [place] [address] Katiana Read MD [address] [place], [place] [address] documented as of this encounter Visit Diagnoses [...] Depression Total Score: 13 022 3:28 PM RESEARCH AND DEVELOPMENT MANAGER documented as of this encounter Care Teams Client Relations Associate Relationship Specialty [place] [address] [place] [address] PCP - General Family Medicine 05/18/22 Jovany Gonzalez MD [facility] [address] [facility] [address] [place], [place] 34[address] Orthopedics 02/15/17 Staci Woodward NP [facility] [address] [place], [place] 28[address] Nurse Practitioner Nurse Practitioner Psych/Mental Health 05/10/17 Reanna Smith, LAURA [facility] [address] [place] [address] Excel Specialist Dietitian, Registered 07/25/19 Roshni Nascimento, RN Personal Advocate & Liaison (PAL) Family Medicine 08/18/20 Kiet Swain MD [address] [facility] [address] [place], [place] [address] Referring Physician Psychiatry 09/19/20 Winsome Pike APRN CLINICAL LEADER [address] [place] [address] 878274 Nurse Practitioner Psychiatry 09/19/20 Tori Hines, [facility] [address] [place], [place] [phone] Radio Script Writer Radio Script Writer - Clinical 09/19/20 Miranda Queen [facility] [address] [place] [address] Pharmacist Pharmacist 11/12/20 Winsome Pike APRN CLINICAL LEADER [address] [place] [address] [phone] Assigned Behavioral Health Provider 01/04/21 07/02/22 Marisel Armando MD [address] [place] [address] 039665 Gastroenterology 02/05/21 Marisel Armando MD [address] [place] [address] 432125 Assigned Gastroenterology Provider 03/08/21 12/24/22 Inderjit Ugalde MD [address] [facility] 300 [place] [address] Assigned Surgical Provider 02/15/21 08/20/22 Wesley Barrett MD [address] [place] [address] 96 [place] [address] Assigned Neuroscience Provider 05/10/21 Charles Jaramillo PA-C [address] [facility] [address] [place] [address] Assigned Musculoskeletal Provider 04/26/21 10/15/22 [place] [address] [address] Assigned PCP 05/15/22 Katiana Read MD [address] [facility] 200 [place] [address] Assigned Endocrinology Provider 06/19/22 Meme Singleton, PhD [address] [place] [address] Assigned Behavioral Health Provider 07/03/22 12/31/22 Deena Garza APRN CLINICAL LEADER [address] [place] [address] Assigned Pain Medication Provider 07/19/22 10/29/22 Mary Del Cid, RAFAEL [address] [place] [address] Nurse Practitioner Nurse Practitioner 10/18/22 Elham Stack, [facility] [address] [place] [address] Pharmacist Pharmacist 10/19/22 Emerita Potter, [facility] Clinic Education Diagnostician Radio Script Writer - Clinical 10/29/22 11/02/22 Mary Del Cid, RAFAEL [address] [place] [address] Assigned Pain Medication Provider 10/30/22 12/03/22 Michelle Guzman, DPM, Podiatry/Foot and Ankle Surgery [address] [place] [address] Assigned Musculoskeletal Provider 10/16/22 04/08/23 [place] [address] [place] [address] Assigned Pain Medication Provider 12/04/22 04/01/23 [place] [address] [place] [address] Nurse Practitioner Nurse Practitioner 01/17/23 01/17/23 Aubrey Jones MD [address] [place] [address] Cardiovascular Disease 03/28/23 Blanquita Morales Excel Specialist Diabetes Education 04/25/23 Aubrey Jones MD [address] [place] [address] Assigned Heart and Vascular Provider 05/07/23 documented as of this encounter
--- OUTSIDE RECORDS SUMMARY | 2023-08-03 10:07 | XMS_ITS | Encounter Summary ---
Author Name Unknown Organization [facility] Address [address] [place] [address]. [place] [address] Care Team Providers Care Inker Name Role Phone Jovany Gonzalez MD Unavailable [phone] CrissyStaci jeong NP Unavailable [phone] Unavailable Roshni Nascimento RN Unavailable Unavailable Kiet Swain MD Unavailable [phone] Winsome Pike APRN COMMUNITY PRODUCT SPECIALIST Unavailable [phone] Tori Hines [facility] Unavailable Miranda Queen [facility] Unavailable Unavailable Winsome Pike APRN COMMUNITY PRODUCT SPECIALIST Unavailable [phone] Marisel Armando MD Unavailable Marisel Armando MD Unavailable Inderjit Ugalde MD Unavailable [phone] Wesley Barrett MD Unavailable [phone] Charles Jaramillo PA-C Unavailable +[phone] Dyan Fuentes MD Primary Care Provider [phone] Dyan Fuentes MD Unavailable [phone] Katiana Read MD Unavailable [phone] Meme Singleton PhD Unavailable +[phone] Greg Deena Lashell PICK UP ATTENDANT COMMUNITY PRODUCT SPECIALIST Unavailable + Mary Del Cid NP Unavailable +5400 Elham Stack [facility] Unavailable [phone] Emerita Potter [facility] Unavailable [phone] Mary Del Cid NP Unavailable +5400 Michelle Guzman DPM, Podiatry /Foot and Ankle Surgery Unavailable Dyan Fuentes MD Unavailable [phone] Mary Del Cid NP Unavailable +5400 Aubrey Jones MD Unavailable [phone] Blanquita Morales Unavailable Unavailable Aubrey Jones MD Unavailable [phone] Encounter Details Date Type Department Care Team (Late st Contact Info) Description 06/15/2022 MyC Medical Advice [facility] [address] [facility] [address] Chidi Zabala Social History Tobacco Use Types [...] Answer Date Recorded PHQ-2 Score 0 06/14/2022 [facility] of Occupat ional [...] Coronavirus/COVID-19? No / Unsure 06/14/2022 2:05 PM MOLDING LINE ASSISTANT documented as of this encounter Plan of Treatment Upcoming Encounters Date Type Department Care Team (Late st Contact Info) Description 08/18/2023 3:00 PM MOLDING LINE ASSISTANT Office Visit [facility] [address] [facility] [address] [place] [address] Katiana Read MD [address] [facility] 200 [place] [address] documented as of this encounter [...] Depression Total Score: 13 022 3:28 PM MOLDING LINE ASSISTANT documented as of this encounter Care Teams Inker Relationship Specialty [place] [address] [place] [address] PCP - General Family Medicine 05/18/22 Jovany Gonzalez MD [facility] [address] [facility] [address] [place], [place] [address] Orthopedics 02/15/17 Staci Woodward, DIGITAL MEDIA PRODUCER [place] [address] [place], [place] 413[address] Nurse Practitioner Nurse Practitioner Psych/Mental Health 05/10/17 Reanan Smith, RD [place] [address] [address] [place], [place] 545087 Bench Lay Out Technician Dietitian, Registered 07/25/19 Roshni Nascimento, RN Personal Advocate & Liaison (PAL) Family Medicine 08/18/20 Kiet Swain MD [address] [place], [place] [address] [place], [place] [address] Referring Physician Psychiatry 09/19/20 Winsome Pike APRN COMMUNITY PRODUCT SPECIALIST [address] [place] [address] 269804 Nurse Practitioner Psychiatry 09/19/20 Tori Hines, [facility] [address] [place] [address] [phone] Cash Applications Associate Cash Applications Associate - Clinical 09/19/20 Miranda Queen, [facility] [address] [place] [address] Pharmacist Pharmacist 11/12/20 Winsome Pike APRN COMMUNITY PRODUCT SPECIALIST [address] [place] [address] Assigned Behavioral Health Provider 01/04/21 07/02/22 Marisel Armando MD [address] [place] [address] 942665 Gastroenterology 02/05/21 Marisel Armando MD [address] [place] [address] 790605 Assigned Gastroenterology Provider 03/08/21 12/24/22 Inderjit Ugalde MD [address] [facility] 300 [place], [place] [address] Assigned Surgical Provider 02/15/21 08/20/22 Wesley Barrett MD [address] [facility] 96 [place], [place] 3[address] Assigned Neuroscience Provider 05/10/21 Charles Jaramillo PA-C [address] [facility] 450 [place] [address] Assigned Musculoskeletal Provider 04/26/21 10/15/22 [place] [address] [place] [address] Assigned PCP 05/15/22 Katiana Read MD [address] [facility] 200 [place], [place] [address] Assigned Endocrinology Provider 06/19/22 Meme [place] [address] [place] [address] Assigned Behavioral Health Provider 07/03/22 12/31/22 Deena Garza APRN COMMUNITY PRODUCT SPECIALIST [address] [place] [address] Assigned Pain Medication Provider 07/19/22 10/29/22 Mary Del Cid, RAFAEL [address] [place] [address] Nurse Practitioner Nurse Practitioner 10/18/22 Elham Stack, [facility] [address] [place], [place] [address] Pharmacist Pharmacist 10/19/22 Emerita Potter, [facility] Clinic Bookstore Clerk Cash Applications Associate - Clinical 10/29/22 11/02/22 Mary Del Cid, RAFAEL [address] [facility] [place] [address] Assigned Pain Medication Provider 10/30/22 12/03/22 Michelle Guzman DPM, Podiatry/Foot and Ankle Surgery [address] [place] [address] Assigned Musculoskeletal Provider 10/16/22 04/08/23 [place] [address] [place] [address] Assigned Pain Medication Provider 12/04/22 04/01/23 [place] [address] [place] [address] Nurse Practitioner Nurse Practitioner 01/17/23 01/17/23 Aubrey Jones MD [address] [place] [address] Cardiovascular Disease 03/28/23 Blanquita Morales Bench Lay Out Technician Diabetes Education 04/25/23 Aubrey Jones MD [address] [place] [address] Assigned Heart and Vascular Provider 05/07/23 documented as of this encounter
--- OUTSIDE RECORDS SUMMARY | 2023-08-03 10:07 | XMS_ITS | Encounter Summary ---
Author Name Unknown Organization [place] Address [address] [place] [address]. [place] [address] Care Team Providers Care Dock Guard Name Role Phone Len Adhikari MD Primary Care Provider + [phone] Jovany Gonzalez MD Unavailable [facility] Unavailable [phone] Unavailable [phone] Roshni Nascimento RN Unavailable Unavailable Kiet Swain MD Unavailable [phone] Winsome Pike APRN CORE MAN Unavailable +[phone] Tori HinesSW Unavailable Miranda Queen [facility] Unavailable Unavailable Winsome Pike APRN CORE MAN Unavailable +[phone] Marisel Armando MD Unavailable Marisel Armando MD Unavailable Inderjit Ugalde MD Unavailable +[phone] Wesley Barrett MD Unavailable +[phone] Charles Jaramillo PA-C Unavailable +[phone] Miranda Queen [facility] Unavailable Unavailable Leeann Rinaldi MD Unavailable Miranda Queen [facility] Unavailable Unavailable Dyan Fuentes MD Primary Care Provider +[phone] Dyan Fuentes MD Unavailable + [phone] Katiana Read MD Unavailable +[phone] Meme Singleton PhD Unavailable + Greg Deena Lashell CUFF SETTER CORE MAN Unavailable + Mary Del Cid NP Unavailable +[phone] StackElham Anthony [facility] Unavailable [phone] AbbeyEmerita Alisha [facility] Unavailable [phone] Mary Del Cid NP Unavailable +[phone] Michelle Guzman DPM, Podiatry /Foot and Ankle Surgery Unavailable Dyan Fuentes MD Unavailable + [phone] Mary Del Cid NP Unavailable +[phone] Aubrey Jones MD Unavailable [phone] Blanquita Morales Unavailable Unavailable Aubrey Jones MD Unavailable + [phone] Encounter Details Date Type Department Care Team (Late st Contact Info) Description 03/04/2022 [facility] Medical Advice [address] [address] Caryl Wheeler MA Social History [...] often do you attend chur ch or spiritism services? 1 to 4 times per year [...] Answer Date Recorded PHQ-2 Score 2 02/02/2021 [facility] - Occupational Stress Questionnaire Answer Date [...] suspected to have Coronavirus/COVID-19? No / Unsure 02/03/2022 3:10 PM CDT documented as of this encounter Plan of Treatment Upcoming Encounters Date Type Department Care Team (Late st Contact Info) Description 08/18/2023 3:00 PM TAR DISTILLATION SUPERVISOR Office Visit [facility] [address] [facility] [address] [place] [address] Katiana Read MD [address] [facility] 200 [place] [address] documented as of this encounter Visit Diagnoses [...] documented as of this encounter Care Teams Dock Guard Relationship Specialty Start Date End Date Len Adhikari MD PCP - General Family Practice 11/08/16 05/09/22 [place] [address] [place] [address] PCP - General Family Medicine 05/18/22 Jovany Gonzalez MD [facility] 6600 [facility] [address] [place] [address] Orthopedics 02/15/17 Staci Woodward MOTOR BOSS [facility] [address] [place], [place] 76[address] Nurse Practitioner Nurse Practitioner Psych/Mental Health 05/10/[address] [facility] [address] [place], [place] 6[address] Rough Carpenter Dietitian, Registered 07/25/19 Roshni Nascimento, RN Personal Advocate & Liaison (PAL) Family Medicine 08/18/20 Kiet Swain MD [address] [facility] [address] [place] [address] Referring Physician Psychiatry 09/19/20 Winsome Pike APRN CORE MAN [address] [place] [address] Nurse Practitioner Psychiatry 09/19/20 Tori Hines, [facility] [address] [place], [place] 4870[address] Ramp Jockey Ramp Jockey - Clinical 09/19/20 Miranda Queen, [facility] [address] [place] [address] Pharmacist Pharmacist 11/12/20 Winsome Pike APRN CORE MAN [address] [place] [address] [phone] Assigned Behavioral Health Provider 01/04/21 07/02/22 Marisel Armando MD [address] [place] [address] 589175 Gastroenterology 02/05/21 Marisel Armando MD [address] [place] [address] 108915 Assigned Gastroenterology Provider 03/08/21 12/24/22 Inderjit Ugalde MD [address] [facility] 300 [place], [place] 703717 Assigned Surgical Provider 02/15/21 08/20/22 Wesley Barrett MD 420 [facility] 96 [place], [place] 8[address] Assigned Neuroscience Provider 05/10/21 Charles Jaramillo PA-C [address] 041635 Assigned Musculoskeletal Provider 04/26/21 10/15/22 [facility] [address] [place] [address] Assigned MTM Pharmacist 12/05/21 03/26/22 [place] [address] [place] [address] Assigned PCP 01/23/22 05/14/22 [facility] [address] [place] [address] Assigned MTM Pharmacist 04/07/22 05/14/22 [place] [address] [place] [address] Assigned PCP 05/15/22 Katiana Read MD [address] [address] Assigned Endocrinology Provider 06/19/22 [place] PhD [address] [place] [address] Assigned Behavioral Health Provider 07/03/22 12/31/22 Deena Garza, CUFF SETTER CORE MAN [address] [place] [address] Assigned Pain Medication Provider 07/19/22 10/29/22 Mary Del Cid, [place] [address] [place] [address] Nurse Practitioner Nurse Practitioner 10/18/22 Elham Stack, [facility] [address] [place] [address] Pharmacist Pharmacist 10/19/22 Emerita Potter, [facility] Clinic Visitor Services Associate Ramp Jockey - Clinical 10/29/22 11/02/22 [place] [address] [place] [address] Assigned Pain Medication Provider 10/30/22 12/03/22 Michelle Guzman, DPM, Podiatry/Foot and Ankle Surgery [address] [place] [address] Assigned Musculoskeletal Provider 10/16/22 04/08/23 [place] [address] [place] [address] Assigned Pain Medication Provider 12/04/22 04/01/23 [place] [address] [place] [address] Nurse Practitioner Nurse Practitioner 01/17/23 01/17/23 Aubrey Jones MD [address] [place] [address] Cardiovascular Disease 03/28/23 Blanquita Morales Rough Carpenter Diabetes Education 04/25/23 Aubrey Jones MD [address] [place] [address] Assigned Heart and Vascular Provider 05/07/23 documented as of this encounter
--- OUTSIDE RECORDS SUMMARY | 2023-08-03 10:07 | XMS_ITS | Encounter Summary ---
Author Name Unknown Organization [place] Address [address] [place] [address]. [place] [address] Care Team Providers Care Slip Tender Name Role Phone Jovany Gonzalez MD Unavailable CrissyStaci jeong NP Unavailable [phone] Unavailable Roshni Nascimento RN Unavailable Unavailable Kiet Swain MD Unavailable [phone] Winsome Pike APRN SPRING COVERER Unavailable [phone] [facility] Unavailable Miranda Queen [facility] Unavailable Unavailable Winsome Pike APRN SPRING COVERER Unavailable [phone] Marisel Armando MD Unavailable Marisel Armando MD Unavailable Inderjit Ugalde MD Unavailable [phone] Wesley Barrett MD Unavailable [phone] Charles Jaramillo PA-C Unavailable +[phone] Dyan Fuentes MD Primary Care Provider [phone] Dyan Fuentes MD Unavailable [phone] Katiana Read MD Unavailable [phone] Meme Singleton PhD Unavailable +[phone] GregDeena TAPERING MACHINE OPERATOR SPRING COVERER Unavailable [phone] Mary Del Cid PIPELINES SUPERINTENDENT Unavailable +[phone] Elham Stack [facility] Unavailable [phone] [facility] Unavailable [phone] Mary Del Cid PIPELINES SUPERINTENDENT Unavailable +[phone] Michelle Guzman DPM, Podiatry /Foot and Ankle Surgery Unavailable Dyan Fuentes MD Unavailable [phone] Mary Del Cid NP Unavailable +[phone] Aubrey Jones MD Unavailable [phone] Blanquita Morales Unavailable Unavailable Aubrey Jones MD Unavailable [phone] Encounter Details Date Type Department Care Team (Late st Contact Info) Description 06/15/2022 [facility] [address] [address] Gavin Patel Social History Tobacco Use Types Packs/Day Years [...] often do you attend chur ch or confucianism services? 1 to 4 times per year 10/16/2021 Do you belong to any clubs o r organizations such as moravian groups, unions, fraternal or athletic groups, or [...] Date Recorded PHQ-2 Score 0 06/14/2022 [facility] of Occupat ional Health - [...] Coronavirus/COVID-19? No / Unsure 06/14/2022 2:05 PM DIRECTOR OF COUNSELING documented as of this encounter Plan of Treatment Upcoming Encounters Date Type Department Care Team (Late st Contact Info) Description 08/18/2023 3:00 PM DIRECTOR OF COUNSELING Office Visit [facility] [address] [facility] [address] [place] [address] Katiana Read MD [address] [place] [address] [address] [place] [address] documented as of this encounter Visit Diagnoses [...] Total Score: 13 022 3:28 PM DIRECTOR OF COUNSELING documented as of this encounter Care Teams Slip Tender Relationship Specialty [place] [address] [place] [address] PCP - General Family Medicine 05/18/22 Jovany Gonzalez MD [facility] 6600 [facility] [address] [place], [place] [address] Orthopedics 02/15/17 Staci Woodward, PIPELINES SUPERINTENDENT [place] [address] [place], [place] [address] Nurse Practitioner Nurse Practitioner Psych/Mental Health 05/10/17 Reanna Smith, [address] [place] [address] [place], [place] 08[address] Syrup Filterer Dietitian, Registered 07/25/19 Roshni Nascimento, RN Personal Advocate & Liaison (PAL) Family Medicine 08/18/20 Kiet Swain MD [address] [place], [place] [address] [place] [address] Referring Physician Psychiatry 09/19/20 Winsome Pike APRN SPRING COVERER [address] [place], [place] [address] Nurse Practitioner Psychiatry 09/19/20 Tori Hines, [facility] [place], [place] 83[address] Shellfish Grower Shellfish Grower - Clinical 09/19/20 Miranda Queen [facility] [address] [place] [address] Pharmacist Pharmacist 11/12/20 Winsome Pike APRN SPRING COVERER [address] [address] Assigned Behavioral Health Provider 01/04/21 07/02/22 Marisel Armando MD [address] [place] [address] Gastroenterology 02/05/21 Marisel Armando MD [address] [place] [address] 370255 Assigned Gastroenterology Provider 03/08/21 12/24/22 Inderjit Ugalde MD [address] [facility] 300 [place] [address] Assigned Surgical Provider 02/15/21 08/20/22 Wesley Barrett MD 420 [facility] 96 [place] [address] Assigned Neuroscience Provider 05/10/21 Charles Jaramillo PA-C 6545 [facility] 450 [place] [address] Assigned Musculoskeletal Provider 04/26/21 10/15/22 [place] [address] [place] [address] Assigned PCP 05/15/22 Katiana Read MD [address] [place] [address] 200 [place] [address] Assigned Endocrinology Provider 06/19/22 [place] [address] [place] [place] [address] Assigned Behavioral Health Provider 07/03/22 12/31/22 Deena Garza APRN SPRING COVERER [address] [place] [address] Assigned Pain Medication Provider 07/19/22 10/29/22 Mary Del Cid, RAFAEL [address] [place] [address] Nurse Practitioner Nurse Practitioner 10/18/22 Elham Stack, [facility] [address] [place], [place] 4[address] Pharmacist Pharmacist 10/19/22 Emerita Potter, [facility] Clinic Database Admin Shellfish Grower - Clinical 10/29/22 11/02/22 Mary Del Cid, RAFAEL [address] [address] [place] [address] Assigned Pain Medication Provider 10/30/22 12/03/22 Michelle Guzman, DPM, Podiatry/Foot and Ankle Surgery [address] [address] [place] [address] Assigned Musculoskeletal Provider 10/16/22 04/08/23 [place] [address] [place] [address] Assigned Pain Medication Provider 12/04/22 04/01/23 [place] [address] [address] [place] [address] Nurse Practitioner Nurse Practitioner 01/17/23 01/17/23 Aubrey Jones MD [address] [place] [address] Cardiovascular Disease 03/28/23 Blanquita Morales Syrup Filterer Diabetes Education 04/25/23 Aubrey Jones MD [address] [place] [address] Assigned Heart and Vascular Provider 05/07/23 documented as of this encounter
--- OUTSIDE RECORDS SUMMARY | 2023-08-03 10:07 | XMS_ITS | Encounter Summary ---
Author Name Unknown Organization [place] Address [address] [place] [address]. [place] [address] Care Team Providers Care Mail Order Sorter Name Role Phone Jovany Gonzalez MD Unavailable CrissyStaci jeong NP Unavailable [phone] Unavailable Roshni Nascimento RN Unavailable Unavailable Kiet Swain MD Unavailable [phone] Winsome Pike APRN TONE CABINET ASSEMBLER Unavailable +[phone] [facility] Unavailable Miranda Queen [facility] Unavailable Unavailable Winsoem Pike APRN TONE CABINET ASSEMBLER Unavailable [phone] Marisel Armando MD Unavailable Marisel Armando MD Unavailable Inderjit Ugalde MD Unavailable [phone] Wesley Barrett MD Unavailable [phone] Charles Jaramillo PA-C Unavailable +[phone] Dyan Fuentes MD Primary Care Provider [phone] Dyan Fuentes MD Unavailable [phone] Katiana Read MD Unavailable [phone] Meme Singleton PhD Unavailable [phone] Deena Garza APRN TONE CABINET ASSEMBLER Unavailable [phone] Mary Del Cid NP Unavailable + [phone] Elham Stack [facility] Unavailable [phone] [facility] Unavailable [phone] Mary Del Cid NP Unavailable + [phone] Michelle Guzman DPM, Podiatry /Foot and Ankle Surgery Unavailable Dyan Fuentes MD Unavailable [phone] Mary Del Cid NP Unavailable + [phone] Aubrey Jones MD Unavailable [phone] Blanquita Morales Unavailable Unavailable Aubrey Jones MD Unavailable [phone] Reason for Visit * Reason Onset Date Comments Medication Request 06/07/2022 buprenorphine HCl-naloxone HCl (SUBOXONE) 2-0.5 MG per film Encounter Details Date Type Department Care Team (Late st Contact Info) Description 06/07/2022 [facility] Pain Management [address] [phone] Deena Garza, VIDHI TONE CABINET ASSEMBLER [address] [place] [address] Medication Request (buprenorphine HCl-naloxone HCl (SUBOXONE) 2-0.5 MG per [...] friends, or neighbors? Three times a week 04/08/20 22 How often do you get togethe r with friends or relatives? Once a week 10/16/2021 How often do you attend chur or baptist services? 1 to 4 times per year 10/16/2021 Do you belong to any clubs o r organizations such as evangelical groups, unions, fraternal or athletic groups, or [...] PHQ-2 Answer Date Recorded PHQ-2 Score 2 05/07/2022 [facility] [place] of Occupat ional Health - Occupational Stress [...] was confirmed or suspected to have Coronavirus/COVID-19? Yes 05/17/2022 9:54 AM CRITICAL CARE RN documented as of this encounter Miscellaneous Notes * Telephone Encounter - Blanquita Perera RN - 06/08/2022 3:43 PM CST Routing to provider to review medication prepped per below Pt to follow up with Debo, see 06/07 encounter LM to schedule appt suboxone 2-0.5, #90, Refill:no Sig:Ok to fill start 06/08/22 Last picked up 05/03/22 with start on 05/03/22 Due: Now Per last OV note 04/13/22: Kaila continues to report very good chronic pain benefit from Suboxone and notes this medication allows her to be more active. We will continue Suboxone 6mg daily- 2mg film and taken TID. Blanquita LEAHY, RN Police Stenographer [facility] Pain Management ICAL CARE RN * Telephone Encounter - Wanda Diehl CMA - 06/08/2022 2:25 PM CRITICAL CARE RN Patient requesting refill(s) of buprenorphine HCl-naloxone HCl (SUBOXONE) 2-0.5 MG per film Last dispensed from pharmacy on 05/03/22 Patient's last office/virtual visit by prescribing provider on 04/13/22 Next office/virtual appointment scheduled for None Last urine drug screen date 12/17/21 Current opioid agreement on file (completed within the last year) Yes Date of opioid agreement: 12/18/21 E-prescribe to [facility] [place] [place] Will route to nursing [place] for review and preparation of prescription(s). ICAL CARE RN * Telephone Encounter - Misty Monroy - 06/07/2022 8:45 AM CST [facility] Call Center Phone Message May a detailed message be left on voicemail: yes Reason for Call: Medication Refill Request Has the patient contacted the pharmacy for the refill? Yes Name of medication being requested: buprenorphine HCl-naloxone HCl (SUBOXONE) 2- 0.5 MG per film Provider who prescribed the medication: Deena Garza APRN CNP Pharmacy: [address] Date medication is needed: 06/08/2022 Patient would like to follow up with Mayr Del Cid APRN, CNP per Nguyen Garza APRN, CNP, please call patient to schedule. Action Taken: Message routed to: Other: [facility] Pain Travel Screening: Not Applicable ICAL CARE RN documented in this encounter Plan of Treatment Upcoming Encounters Date Type Department Care Team (Late st Contact Info) Description 08/18/2023 3:00 PM CRITICAL CARE RN Office Visit [facility] [address] [place] [address] Katiana Read MD [address] [place] [address] documented as of this encounter Visit Diagnoses [...] Noted Time PHQ-9 Depression Total Score: 6 05/07/20 22 2:09 PM CDT documented as of this encounter Care Teams Mail Order Sorter Relationship Specialty [place] [address] [place] [address] PCP - General Family Medicine 05/18/22 Jovany Gonzalez MD [facility] 6600 [facility] 605 [place] [address] Orthopedics 02/15/17 Staci Woodward, CUSTOM CLOTHIER [place] [address] [place] [address] Nurse Practitioner Nurse Practitioner Psych/Mental Health 05/10/[address] [place] [address] [place] [address] Labor Relations Supervisor Dietitian, Registered 07/25/19 Roshni Nascimento, RN Personal Advocate & Liaison (PAL) Family Medicine 08/18/20 Kiet Swain MD 2450 [facility] [address] [place], [place] [address] Referring Physician Psychiatry 09/19/20 Winsome Pike APRN TONE CABINET ASSEMBLER [address] [place] [address] [phone] Nurse Practitioner Psychiatry 09/19/20 Tori Hines, [facility] [place], [place] 46[address] Factory Engineer Factory Engineer - Clinical 09/19/20 Miranda Queen [facility] [address] [place] [address] Pharmacist Pharmacist 11/12/20 Winsome Pike APRN TONE CABINET ASSEMBLER [address] [place] [address]1594 Assigned Behavioral Health Provider 01/04/21 07/02/22 Marisel Armando MD [address] [place] [address] 074535 Gastroenterology 02/05/21 Marisel Armando MD [address] [place] [address] Assigned Gastroenterology Provider 03/08/21 12/24/22 Inderjit Ugalde MD [address] [address] Assigned Surgical Provider 02/15/21 08/20/22 Wesley Barrett MD [address] [place] [address] Assigned Neuroscience Provider 05/10/21 Charles Jaramillo PA-C [address] [facility] 450 [place] [address] Assigned Musculoskeletal Provider 04/26/21 10/15/22 [place] [address] [place] [address] Assigned PCP 05/15/22 Katiana Read MD [address] [place] [address] 200 [place] [address] Assigned Endocrinology Provider 06/19/22 [place] [address] [place] [address] Assigned Behavioral Health Provider 07/03/22 12/31/22 Deena Garza APRN TONE CABINET ASSEMBLER [address] [place] [address] Assigned Pain Medication Provider 07/19/22 10/29/22 Mary Del Cid, RAFAEL [address] [place] [address] Nurse Practitioner Nurse Practitioner 10/18/22 Elham Stack, [facility] [address] [place] [address] Pharmacist Pharmacist 10/19/22 Emerita Potter, [facility] Clinic Police Stenographer Factory Engineer - Clinical 10/29/22 11/02/22 [place] [address] [address] [address] [place] [address] Assigned Pain Medication Provider 10/30/22 12/03/22 Michelle Guzman, DPM, Podiatry/Foot and Ankle Surgery [address] [place] [address] Assigned Musculoskeletal Provider 10/16/22 04/08/23 [place] [address] [place] [address] Assigned Pain Medication Provider 12/04/22 04/01/23 [place] [address] [place] [address] Nurse Practitioner Nurse Practitioner 01/17/23 01/17/23 Aubrey Jones MD [address] [place] [address] Cardiovascular Disease 03/28/23 Blanquita Morales Labor Relations Supervisor Diabetes Education 04/25/23 Aubrey Jones MD [address] [place] [address] Assigned Heart and Vascular Provider 05/07/23 documented as of this encounter
--- OUTSIDE RECORDS SUMMARY | 2023-08-03 10:07 | XMS_ITS | Encounter Summary ---
Author Name Unknown Organization [place] Address [address] [place] [address]. [place] [address] Care Team Providers Care Canal Boat Operator Name Role Phone Jovany Gonzalez MD Unavailable CrissyStaci jeong NP Unavailable [phone] Unavailable Roshni Nascimento RN Unavailable Unavailable Kiet Swain MD Unavailable [phone] Winsome Pike APRN WAREHOUSE ADMINISTRATIVE ASSISTANT Unavailable +[phone] Tori Hines [facility] Unavailable Miranda Queen [facility] Unavailable Unavailable Winsome Pike APRN WAREHOUSE ADMINISTRATIVE ASSISTANT Unavailable +[phone] Marisel Armando MD Unavailable Marisel Armando MD Unavailable Inderjit Ugalde MD Unavailable [phone] Wesley Barrett MD Unavailable +[phone] Charles Jaramillo PA-C Unavailable +[phone] Dyan Fuentes MD Primary Care Provider +[phone] Dyan Fuentes MD Unavailable [phone] Katiana Read MD Unavailable [phone] Meme Singleton PhD Unavailable +[phone] GregDeena Lashell PIPE SETTER WAREHOUSE ADMINISTRATIVE ASSISTANT Unavailable +[phone] Mary Del Cid NP Unavailable + [phone] Elham Stack [facility] Unavailable [phone] Emerita Pottre [facility] Unavailable [phone] Mary Del Cid FORESTRY TECHNICIAN Unavailable + [phone] Michelle Guzman DPM, Podiatry /Foot and Ankle Surgery Unavailable Dyan Fuentes MD Unavailable [phone] Mary Del Cid NP Unavailable + [phone] Aubrey Jones MD Unavailable [phone] Blanquita Morales Unavailable Unavailable Encounter Details Date Type Department Care Team (Late st Contact Info) Description 06/14/2022 Telephone [facility] [address] [facility] [address] [place] [address] Katiana Read MD [address] [place] [address] [place] [address] Social History Tobacco Use Types Packs/Day Years [...] week 10/16/2021 How often do you attend [facility] or episcopal services? 1 to 4 times [...] Date Recorded PHQ-2 Score 2 11/25/2022 [facility] - Occupational Stress Questionnaire Answer [...] a nursing home (including now)? No 10/16/2021 Adolescent Education Answer [...] st Contact Info) Description 08/18/2023 3:00 PM WOOD MODEL BUILDER Office Visit [facility] [address] [place] [address] Katiana Read MD [address] [place] [address] [place] [address] documented as of this encounter Visit Diagnoses [...] Depression Total Score: 13 022 3:28 PM WOOD MODEL BUILDER documented as of this encounter Care Teams Canal Boat Operator Relationship Specialty [place] [address] [place] [address] PCP - General Family Medicine 05/18/22 Jovany Gonzalez MD [facility] [address] [facility] [place] [address] [place], [place] [address] Orthopedics 02/15/17 Staci Woodward NP [place] [address] [place], [place] 435667 Nurse Practitioner Nurse Practitioner Psych/Mental Health 05/10/17 Reanna Smith, RD [place] [address] [place], [place] [address] Electronic Funds Transfer Coordinator Dietitian, Registered 07/25/19 Roshni Nascimento, RN Personal Advocate & Liaison (PAL) Family Medicine 08/18/20 Kiet Swain MD [address] [place] [address] [phone] Referring Physician Psychiatry 09/19/20 Winsome Pike APRN WAREHOUSE ADMINISTRATIVE ASSISTANT [address] [place] [address] [phone] Nurse Practitioner Psychiatry 09/19/20 Tori iHnes, [facility] [address] [place] [address], [place] 434184 Hand Trucker Hand Trucker - Clinical 09/19/20 Miranda Queen [facility] [address] [facility] [place] [address] Pharmacist Pharmacist 11/12/20 Winsome Pike APRN WAREHOUSE ADMINISTRATIVE ASSISTANT [address] [phone] Assigned Behavioral Health Provider 01/04/21 07/02/22 Marisel Armando MD [address] [place] [address] [phone] Gastroenterology 02/05/21 Marisel Armando MD [address] [place] [address] [id number] Assigned Gastroenterology Provider 03/08/21 12/24/22 Inderjit Ugalde MD [address] [facility] 300 [place] [address] Assigned Surgical Provider 02/15/21 08/20/22 Wesley Barrett MD [address] [facility] 96 [place], [place] 350[address] Assigned Neuroscience Provider 05/10/21 Charles Jaramillo PA-C [address] [facility] [address] [address] Assigned Musculoskeletal Provider 04/26/21 10/15/22 [place] [address] [place] [address] Assigned PCP 05/15/22 Katiana Read MD [address] [facility] 200 [place] [address] Assigned Endocrinology Provider 06/19/22 [place] [address] [address] [place] [address] Assigned Behavioral Health Provider 07/03/22 12/31/22 Deena Garza, PIPE SETTER WAREHOUSE ADMINISTRATIVE ASSISTANT [address] [facility] [place] [address] Assigned Pain Medication Provider 07/19/22 10/29/22 Mary Del Cid, [place] [address] [place] [place] [address] Nurse Practitioner Nurse Practitioner 10/18/22 Elham Stack, [facility] [address] [place], [place] 7589[address] Pharmacist Pharmacist 10/19/22 Emerita Potter, [facility] Clinic A&P Mechanic Hand Trucker - Clinical 10/29/22 11/02/22 Mary Del Cid, [place] [address] [place] [address] Assigned Pain Medication Provider 10/30/22 12/03/22 Michelle Guzman, DPM, Podiatry/Foot and Ankle Surgery [address] [facility] [place] [address] Assigned Musculoskeletal Provider 10/16/22 04/08/23 [place] [address] [place] [address] Assigned Pain Medication Provider 12/04/22 04/01/23 [place] [address] [address] [place] [address] Nurse Practitioner Nurse Practitioner 01/17/23 01/17/23 Aubrey Jones MD [address] [place] [address] Cardiovascular Disease 03/28/23 Blanquita Morales Electronic Funds Transfer Coordinator Diabetes Education 04/25/23 documented as of this encounter
--- OUTSIDE RECORDS SUMMARY | 2023-08-03 10:07 | XMS_ITS | Encounter Summary ---
Author Name Unknown Organization [place] Address [address] [place] [address]. [place] [address] Care Team Providers Care Critical Care Clinical Nurse Specialist Name Role Phone Jovany Gonzalez MD Unavailable CrsisyStaci jeong NP Unavailable [phone] Unavailable Roshni Nascimento RN Unavailable Unavailable Kiet Swain MD Unavailable [phone] Winsome Pike APRN WOOD MODEL MAKER Unavailable +[phone] Tori Hines [facility] Unavailable Miranda Queen [facility] Unavailable Unavailable Winsome Pike APRN WOOD MODEL MAKER Unavailable [phone] Marisel Armando MD Unavailable Marisel Armando MD Unavailable Inderjit Ugalde MD Unavailable [phone] Wesley Barrett MD Unavailable [phone] Charles Jaramillo PA-C Unavailable +[phone] Dyan Fuentes MD Primary Care Provider [phone] Dyan Fuentes MD Unavailable [phone] Katiana Read MD Unavailable [phone] Meme Singleton PhD Unavailable +[phone] GregDeena ECONOMIC DEVELOPMENT COORDINATOR WOOD MODEL MAKER Unavailable [phone] Mary Del Cid INSURANCE SALES SPECIALIST Unavailable + [phone] Elham Stack [facility] Unavailable [phone] Emerita Potter [facility] Unavailable [phone] Mary Del Cid NP Unavailable + [phone] Michelle Guzman DPM, Podiatry /Foot and Ankle Surgery Unavailable Dyan Fuentes MD Unavailable [phone] Mary Del Cid NP Unavailable + [phone] Aubrey Jones MD Unavailable [phone] Blanquita Morales Unavailable Unavailable Aubrey Jones MD Unavailable + [phone] Reason for Visit * Reason Onset Date Comments Call Back 06/07/2022 Encounter Details Date Type Department Care Team (Late st Contact Info) Description 06/07/2022 Telephone [facility] [address] [place] [address] Pain Management Program, [facility] Call Back Social History Tobacco Use Types Packs/Day Years [...] How often do you attend chur or latter day services? 1 to 4 times per year 10/16/2021 Do you belong to any clubs o r organizations such as hoahaoism groups, unions, fraternal or athletic groups, or [...] Answer Date Recorded PHQ-2 Score 2 05/07/2022 [facility] - Occupational Stress Questionnaire Answer Date Recorded [...] to have Coronavirus/COVID-19? Yes 05/17/2022 9:54 AM POWER BARKER OPERATOR documented as of this encounter Miscellaneous Notes * Telephone Encounter - Alicia Huffman - 06/07/2022 12:46 PM CST LVM for patient to schedule 60 minute in clinic transfer of care appointment with Mary Del Cid.When patient returns the call please transfer patient to [phone] to schedule. Alicia Huffman Vendor Specialist [facility] R BARKER OPERATOR documented in this encounter Plan of Treatment Upcoming Encounters Date Type Department Care Team (Late st Contact Info) Description 08/18/2023 3:00 PM POWER BARKER OPERATOR Office Visit [facility] [address] [place] [address] Katiana Read MD [address] [place] [address] [place], [place] [address] documented as of this encounter Visit Diagnoses Not on filedocumented in this encounter Additional Health Concerns Infection Onset Date Last Indicated Resolved Time Rule Out C-difficile 10/14/2022 10/15/20222 023 12:33 AM CDT Rule Out C-difficile 10/15/2022 10/15/2022 023 5:39 AM CDT C-difficile 10/15/2022 10/27/2022 11/26/2022 11:4 0 PM CDT Rule Out C-difficile 10/26/2022 10/27/2022 023 2:14 AM CDT Rule Out C-difficile 12/05/2022 12/05/2022 023 9:44 AM CDT Assessment Noted Time PHQ-9 Depression Total Score: 6 05/07/20 22 2:09 PM CDT documented as of this encounter Care Teams Critical Care Clinical Nurse Specialist Relationship Specialty [place] [address] [place] [address] PCP - General Family Medicine 05/18/22 Jovany Gonzalez MD [facility] [address] [facility] [place] [address] [place] [address] Orthopedics 02/15/17 Staci Woodward INSURANCE SALES SPECIALIST [facility] [address] [place] [address] Nurse Practitioner Nurse Practitioner Psych/Mental Health 05/10/17 Reanna Smith, [facility] [address] [place] [address] Wood Drilling Machine Operator Dietitian, Registered 07/25/19 Roshni Nascimento, RN Personal Advocate & Liaison (PAL) Family Medicine 08/18/20 Kiet Swain MD [address] [facility] [address] [place] [address] Referring Physician Psychiatry 3/12/21 Winsome Pike APRN WOOD MODEL MAKER [address] 987014 Nurse Practitioner Psychiatry 09/19/20 Tori Hines, [facility] 2450 [place], [place] [phone] Biometric Screener Biometric Screener - Clinical 09/19/20 Miranda Queen, [facility] [address] [place] [address] Pharmacist Pharmacist 11/12/20 Winsome Pike APRN WOOD MODEL MAKER [facility] [address] 809884 Assigned Behavioral Health Provider 01/04/21 07/02/22 Marisel Armando MD [address] [place] [address] 255725 Gastroenterology 02/05/21 Marisel Armando MD [address] [place] [address] [phone] Assigned Gastroenterology Provider 03/08/21 12/24/22 Inderjit Ugalde MD [address] [facility] 300 [employer], [place] 521827 Assigned Surgical Provider 02/15/21 08/20/22 Wesley Barrett MD [address] [place] [address] [id number] Assigned Neuroscience Provider 05/10/21 Charles Jaramillo PA-C [address] [address] Assigned Musculoskeletal Provider 04/26/21 10/15/22 [place] [address] [place] [address] Assigned PCP 05/15/22 Katiana Read MD [address] [facility] 200 [place] [address] Assigned Endocrinology Provider 06/19/22 Meme Singleton, PhD [address] [place] [address] Assigned Behavioral Health Provider 07/03/22 12/31/22 Deena Garza APRN WOOD MODEL MAKER [address] [place] [address] Assigned Pain Medication Provider 07/19/22 10/29/22 Mary Del Cid, RAFAEL [address] [place] [address] Nurse Practitioner Nurse Practitioner 10/18/22 Elham Stack, [facility] [address] [place] [address] Pharmacist Pharmacist 10/19/22 Emerita Potter, [facility] Clinic Chef Teacher Biometric Screener - Clinical 10/29/22 11/02/22 [place] [address] [place] [address] Assigned Pain Medication Provider 10/30/22 12/03/22 Michelle Guzman DPM, Podiatry/Foot and Ankle Surgery [address] [place] [address] Assigned Musculoskeletal Provider 10/16/22 04/08/23 [place] [address] [place] [address] Assigned Pain Medication Provider 12/04/22 04/01/23 [place] [address] [place] [address] Nurse Practitioner Nurse Practitioner 01/17/23 01/17/23 Aubrey Jones MD [address] [place] [address] Cardiovascular Disease 03/28/23 Blanquita Morlaes Wood Drilling Machine Operator Diabetes Education 04/25/23 Aubrey Jones MD [address] [place] [address] Assigned Heart and Vascular Provider 05/07/23 documented as of this encounter
--- OUTSIDE RECORDS SUMMARY | 2023-08-03 10:07 | XMS_ITS | Encounter Summary ---
Author Name Unknown Organization [place] Address [address] [place] [address]. [place] [address] Care Team Providers Care Gate Agent Name Role Phone Len Adhikari MD Primary Care Provider + [phone] Jovany Gonzalez MD Unavailable CrissyStaci jeong NP Unavailable [phone] Unavailable [phone] Roshni Nascimento RN Unavailable Unavailable Kiet Swain MD Unavailable [phone] Winsome Pike APRN EMBEDDED SOFTWARE ARCHITECT Unavailable +[phone] Tori HinesSW Unavailable Miranda Queen [facility] Unavailable Unavailable Winsome Pike APRN EMBEDDED SOFTWARE ARCHITECT Unavailable +[phone] Marisel Armando MD Unavailable Marisel Armando MD Unavailable Inderjit Ugalde MD Unavailable [phone] Wesley Barrett MD Unavailable [phone] Charles Jaramillo PA-C Unavailable +[phone] Leeann Rinaldi MD Unavailable Miranda Queen [facility] Unavailable Unavailable Dyan Fuentes MD Primary Care Provider [phone] Dyan Fuentes MD Unavailable +[phone] Katiana Read MD Unavailable +[phone] Meme Singleton PhD Unavailable + Greg Deena L MANAGED SERVICES CONSULTANT EMBEDDED SOFTWARE ARCHITECT Unavailable +[phone] Mary Del Cid NP Unavailable +[phone] Sreekanth Elham T [facility] Unavailable +[phone] Abbey Emerita Brito ENGINE BUILDER Unavailable [phone] Mary Del Cid NP Unavailable +[phone] Michelle Guzman DPM, Podiatry /Foot and Ankle Surgery Unavailable Dyan Fuentes MD Unavailable + [phone] Mary Del Cid NP Unavailable +[phone] Aubrey Jones MD Unavailable [phone] Blanquita Morales Unavailable Unavailable Aubrey Jones MD Unavailable +[phone] Encounter Details Date Type Department Care Team (Late st Contact Info) Description 03/30/2022 [facility] [address] [place] [phone] Caryl Wheeler, MA Social History Tobacco Use Types Packs/Day [...] week 10/16/2021 How often do you attend [facility] or temple services? 1 to 4 times per year 10/16/2021 Do you belong to any clubs o r organizations such as jew groups, unions, fraternal or athletic groups, or [...] Answer Date Recorded PHQ-2 Score 2 02/02/2021 [facility] of Occupat ional [facility] - Occupational Stress Questionnaire Answer Date Recorded [...] suspected to have Coronavirus/COVID-19? No / Unsure 03/10/2022 9:06 AM CDT documented as of this encounter Plan of Treatment Upcoming Encounters Date Type Department Care Team (Late st Contact Info) Description 08/18/2023 3:00 PM BODY AND FENDER WORKER Office Visit [facility] [address] [facility] [address] [place] [address] Katiana Read MD [address] 200 [place] [address] documented as of this encounter [...] documented as of this encounter Care Teams Gate Agent Relationship Specialty Start Date End Date Len Adhikari MD PCP - General Family Practice 11/08/16 05/09/22 [place] [address] [place] [address] PCP - General Family Medicine 05/18/22 Jovany Gonzalez MD [facility] [address] [facility] [place] [address] [place], [place] 50[address] Orthopedics 02/15/17 Staci Woodward, DIRECTOR OF PATIENT CARE [place] [address] [place], [place] 87[address] Nurse Practitioner Nurse Practitioner Psych/Mental Health 05/10/17 Reanna Smith, RD [facility] [address] [place], [place] 401[address] Pouring Crane Operator Dietitian, Registered 07/25/19 Roshni Nascimento, RN Personal Advocate & Liaison (PAL) Family Medicine 08/18/20 Kiet Swain MD 2450 [facility] [address] [place] [address] Referring Physician Psychiatry 09/19/20 Winsome Pike APRN EMBEDDED SOFTWARE ARCHITECT [address] [place] [address] [phone] Nurse Practitioner Psychiatry 09/19/20 Tori Hines [facility] 2450 [place], [place] 712234 Loader Technician Loader Technician - Clinical 09/19/20 Miranda Queen [facility] [address] [place] [address] Pharmacist Pharmacist 11/12/20 Winsome Pike APRN EMBEDDED SOFTWARE ARCHITECT [address] [place] [address] 317684 Assigned Behavioral Health Provider 01/04/21 07/02/22 Marisel Armando MD [address] [place] [address] 368015 Gastroenterology 02/05/21 Marisel Armando MD [address] [place] [address] 843055 Assigned Gastroenterology Provider 03/08/21 12/24/22 Inderjit Ugalde MD [address] [facility] 300 [place], [place] [address] Assigned Surgical Provider 02/15/21 08/20/22 Wesley Barrett MD [address] [place] [address] 96 [place], [place] 502675 Assigned Neuroscience Provider 05/10/21 Charles Jaramillo PA-C [address] 959675 Assigned Musculoskeletal Provider 04/26/21 10/15/22 [place] [address] [place] [address] Assigned PCP 01/23/22 05/14/22 Miranda Queen [facility] [address] [place] [address] Assigned MTM Pharmacist 04/07/22 05/14/22 [place] [address] [place] [address] Assigned PCP 05/15/22 Katiana Read MD [address] [place] [address] [phone] Assigned Endocrinology Provider 06/19/22 Meme Singleton, PhD [address] [place] 878887 Assigned Behavioral Health Provider 07/03/22 12/31/22 Deena Garza, VIDHI EMBEDDED SOFTWARE ARCHITECT [address] [place] [address] Assigned Pain Medication Provider 07/19/22 10/29/22 Mary Del Cid, RAFAEL [address] [place] [address] Nurse Practitioner Nurse Practitioner 10/18/22 Elham Stack, [facility] [address] [place] [address] Pharmacist Pharmacist 10/19/22 Emerita Potter, [facility] Clinic Lacquer Maker Loader Technician - Clinical 10/29/22 11/02/22 [place] [address] [place] [address] Assigned Pain Medication Provider 10/30/22 12/03/22 Michelle Guzman DPM, Podiatry/Foot and Ankle Surgery [address] [place] [address] Assigned Musculoskeletal Provider 10/16/22 04/08/23 [place] [address] [place] [address] Assigned Pain Medication Provider 12/04/22 04/01/23 [place] [address] [place] [address] Nurse Practitioner Nurse Practitioner 01/17/23 01/17/23 Aubrey Jones MD [address] [place] [address] Cardiovascular Disease 03/28/23 Blanquita Morales Pouring Crane Operator Diabetes Education 04/25/23 Aubrey Jones MD [address] [place] [address] Assigned Heart and Vascular Provider 05/07/23 documented as of this encounter
--- OUTSIDE RECORDS SUMMARY | 2023-08-03 10:08 | XMS_ITS | Encounter Summary ---
Author Name Unknown Organization [facility] Address [address] [place] [address]. [place] [address] Care Team Providers Care Abrasive Mixer Name Role Phone Len Adhikari MD Primary Care Provider + [phone] Jovany Gonzalez MD Unavailable [phone] [facility] Unavailable [phone] Unavailable [phone] Roshni Nascimento RN Unavailable Unavailable Kiet Swain MD Unavailable +[phone] Winsome Pike APRN TILE MASON Unavailable +[phone] Tori HinesSW Unavailable Miranda Queen [facility] Unavailable Unavailable Winsome Pike APRN TILE MASON Unavailable +[phone] Marisel Armando MD Unavailable Marisel Armando MD Unavailable Inderjit Ugalde MD Unavailable +[phone] Wesley Barrett MD Unavailable +[phone] Charles Jaramillo PA-C Unavailable +[phone] Miranda Queen [facility] Unavailable Unavailable Leeann Rinaldi MD Unavailable Miranda Queen [facility] Unavailable Unavailable Dyan Fuentes MD Primary Care Provider +[phone] Dyan Fuentes MD Unavailable + [phone] Katiana Read MD Unavailable +[phone] Meme Singleton PhD Unavailable + Greg Deena Lashell LACE MENDER TILE MASON Unavailable +[phone] Mary Del Cid NP Unavailable +[phone] SreekanthElham Anthony [facility] Unavailable +[phone] AbbeyEmerita Alisha [facility] Unavailable +[phone] Mary Del Cid NP Unavailable +[phone] Michelle Guzman DPM, Podiatry /Foot and Ankle Surgery Unavailable Dyan Fuentes MD Unavailable + [phone] Mary Del Cid NP Unavailable +[phone] Aubrey Jones MD Unavailable +[phone] Blanquita Morales Unavailable Unavailable Aubrey Jones MD Unavailable + [phone] Encounter Details Date Type Department Care Team (Late st Contact Info) Description 02/11/2022 [facility] Medical Advice [address] [address] Lynda Oliver, [facility] Social History Tobacco Use Types Packs/Day Years [...] often do you attend chur ch or church services? 1 to 4 times [...] Answer Date Recorded PHQ-2 Score 2 02/02/2021 [facility] of Occupat ional Health - Occupational [...] st Contact Info) Description 08/18/2023 3:00 PM SEED CLEANING MACHINE OPERATOR Office Visit [facility] [address] [facility] [address] [place] [address] Katiana Read MD [address] [address] [place] [address] documented as of this encounter Visit Diagnoses [...] documented as of this encounter Care Teams Abrasive Mixer Relationship Specialty Start Date End Date Len Adhikari MD PCP - General Family Practice 11/08/16 05/09/22 [place] [address] [place] [address] PCP - General Family Medicine 05/18/22 Jovany Gonzalez MD [facility] [address] [facility] [address] [place], [place] 000[address] Orthopedics 02/15/17 Staci Woodward [facility] [place] [address] [place], [place] 6820[address] Nurse Practitioner Nurse Practitioner Psych/Mental Health 05/10/17 Reanna Smith, [facility] [address] [place], [place] [address] Plant Electrician Dietitian, Registered 07/25/19 Roshni Nascimento, RN Personal Advocate & Liaison (PAL) Family Medicine 08/18/20 Kiet Swain MD [address] [facility] [address] [place], [place] [address] Referring Physician Psychiatry 09/19/20 Winsome Pike APRN TILE MASON [address] [address] Nurse Practitioner Psychiatry 09/19/20 Tori Hines, [facility] [address] [place], [place] [address] Precision Instrument Maker Precision Instrument Maker - Clinical 09/19/20 Miranda Queen, [facility] [address] [place] [address] Pharmacist Pharmacist 11/12/20 Winsome Pike APRN TILE MASON [facility] [address] [address] Assigned Behavioral Health Provider 01/04/21 07/02/22 Marisel Armando MD [address] [place] [address] 976525 Gastroenterology 02/05/21 Marisel Armando MD [address] [place] [address] 303585 Assigned Gastroenterology Provider 03/08/21 12/24/22 Inderjit Ugalde MD [address] [facility] 300 [place], [place] [address] Assigned Surgical Provider 02/15/21 08/20/22 Wesley Barrett MD [address] [place] [address] 96 [place], [place] 318975 Assigned Neuroscience Provider 05/10/21 Charles Jaramillo PA-C [address] 907535 Assigned Musculoskeletal Provider 04/26/21 10/15/22 [facility] [address] [place] [address] Assigned MTM Pharmacist 12/05/21 03/26/22 [place] [address] [place] [address] Assigned PCP 01/23/22 05/14/22 Miranda Queen [facility] [address] [place] [address] Assigned MTM Pharmacist 04/07/22 05/14/22 [place] [address] [place] [address] Assigned PCP 05/15/22 Katiana Read MD [address] [place] [address] Assigned Endocrinology Provider 06/19/22 Meme Singleton, PhD [address] [place] [address] Assigned Behavioral Health Provider 07/03/22 12/31/22 Deena Garza, LACE MENDER TILE MASON [address] [place] [address] Assigned Pain Medication Provider 07/19/22 10/29/22 Mary Del Cid, RAFAEL [address] [place] [address] Nurse Practitioner Nurse Practitioner 10/18/22 Elham Stack, [facility] 3033 [place] [address] Pharmacist Pharmacist 10/19/22 Emerita Potter, [facility] Clinic Filing Writer Precision Instrument Maker - Clinical 10/29/22 11/02/22 Mary Del Cid, RAFAEL [address] [place] [address] Assigned Pain Medication Provider 10/30/22 12/03/22 Michelle Guzman, DPM, Podiatry/Foot and Ankle Surgery [address] [place] [address] Assigned Musculoskeletal Provider 10/16/22 04/08/23 [place] [address] [place] [address] Assigned Pain Medication Provider 12/04/22 04/01/23 [place] [address] [place] [address] Nurse Practitioner Nurse Practitioner 01/17/23 01/17/23 Aubrey Jones MD [address] [place] [address] Cardiovascular Disease 03/28/23 Blanquita Morales Plant Electrician Diabetes Education 04/25/23 Aubrey Jones MD [address] [place] [address] Assigned Heart and Vascular Provider 05/07/23 documented as of this encounter
--- OUTSIDE RECORDS SUMMARY | 2023-08-03 10:08 | XMS_ITS | Encounter Summary ---
Author Name Unknown Organization [facility] Address [address] [place] [address] Care Team Providers Care Storage Management Architect Name Role Phone Len Adhikari MD Primary Care Provider Jovany Gonzalez MD Unavailable CrissyStaci jeong NP Unavailable [phone] Len Adhikari MD Unavailable Reanna Smith RD Unavailable [phone] Roshni Nascimento RN Unavailable Unavailable Kiet Swain MD Unavailable [phone] Winsome Pike APRN YOUTH CARE WORKER Unavailable +[phone] Tori HinesSW Unavailable Miranda Queen [facility] Unavailable Unavailable Winsome Pike APRN YOUTH CARE WORKER Unavailable +[phone] Marisel Armando MD Unavailable Marisel Armando MD Unavailable Inderjit Ugalde MD Unavailable [phone] Wesley Barrett MD Unavailable Charles Jaramillo PA-C Unavailable +[phone] Miranda Queen [facility] Unavailable Unavailable Leeann Rinaldi MD Unavailable Miranda Queen [facility] Unavailable Unavailable Dyan Fuentes MD Primary Care Provider +[phone] Dyan Fuentes MD Unavailable +[phone] Katiana Read MD Unavailable +[phone] Meme Singleton PhD Unavailable +[phone] Deena Garza CLIMATOLOGY TEACHER YOUTH CARE WORKER Unavailable +[phone] Mary Del Cid FOOT SETTER Unavailable + [phone] StackElham [facility] Unavailable [phone] Emerita Potter [facility] Unavailable [phone] Mary Del Cid NP Unavailable + [phone] Michelle Guzman DPM, Podiatry /Foot and Ankle Surgery Unavailable Dyan Fuentes MD Unavailable + [phone] Mary Del Cid NP Unavailable + [phone] Aubrey Jones MD Unavailable + [phone] Blanquita Morales Unavailable Unavailable Aubrey Jones MD Unavailable + [phone] Encounter Details Date Type Department Care Team (Late st Contact Info) Description 12/10/2021 [facility] [address] [address] Torri Benites V, RN Social [...] often do you attend chur ch or restorationist services? 1 to 4 times per year [...] Answer Date Recorded PHQ-2 Score 2 02/02/2021 [facility] - Occupational Stress [...] suspected to have Coronavirus/COVID-19? No / Unsure 11/30/2021 5:49 PM CDT documented as of this encounter Plan of Treatment Upcoming Encounters Date Type Department Care Team (Late st Contact Info) Description 08/18/2023 3:00 PM PERCUSSION INSTRUCTOR Office Visit [facility] [address] [place] [address] Katiana Read MD [address] [place] [address] documented as of this encounter Visit Diagnoses [...] documented as of this encounter Care Teams Storage Management Architect Relationship Specialty Start Date End Date Len Adhikari MD PCP - General Family Practice 11/08/16 05/09/22 [place] [address] [place] [address] PCP - General Family Medicine 05/18/22 Jovany Gonzalez MD [facility] [address] [facility] [address] [place], [place] [address] Orthopedics 02/15/17 Staci Woodward FOOT SET[place] [address] [place] [address] Nurse Practitioner Nurse Practitioner Psych/Mental Health 05/10/17 [place] [address] [facility] [place] [address] Assigned PCP 11/14/16 01/22/[address] [facility] [address] [place] [address] Contact Center Professional Dietitian, Registered 07/25/19 Roshni Nascimento, RN Personal Advocate & Liaison (PAL) Family Medicine 08/18/20 Kiet Swain MD [address] [place] [address] [place] [address] 658374 Referring Physician Psychiatry 09/19/20 Winsome Pike APRN YOUTH CARE WORKER [address] [place] [address] 955044 Nurse Practitioner Psychiatry 09/19/20 Tori Hines, [facility] [address] [place] [address] [phone] Health And Safety Instructor Health And Safety Instructor - Clinical 09/19/20 Miranda Queen [facility] [address] [place] [address] Pharmacist Pharmacist 11/12/20 Winsome Pike APRN YOUTH CARE WORKER [address] [place] [address] 980494 Assigned Behavioral Health Provider 01/04/21 07/02/22 Marisel Armando MD [address] [place] [address] Gastroenterology 02/05/21 Marisel Armando MD [address] [place] [address] Assigned Gastroenterology Provider 03/08/21 12/24/22 Inderjit Ugalde MD [address] [address] Assigned Surgical Provider 02/15/21 08/20/22 Wesley Barrett MD [address] [place] [address] 96 [place] [address] Assigned Neuroscience Provider 05/10/21 Charles Jaramillo PA-C [address] [facility] [address] [place] [address] Assigned Musculoskeletal Provider 04/26/21 10/15/22 Miranda Queen [facility] [address] [place] [address] Assigned MTM Pharmacist 12/05/21 03/26/22 [place] [address] [place] [address] Assigned PCP 01/23/22 05/14/22 Miranda Queen [facility] [address] [place] [address] Assigned MTM Pharmacist 04/07/22 05/14/22 [place] [address] [place] [address] Assigned PCP 05/15/22 Katiana Read MD [address] [place] [address] 200 [place], [place] [address] Assigned Endocrinology Provider 06/19/22 Meme Singleton, PhD [address] [place] 70[address]67 Assigned Behavioral Health Provider 07/03/22 12/31/22 Deena Garza APRN YOUTH CARE WORKER [address] [place] [address] Assigned Pain Medication Provider 07/19/22 10/29/22 [place] [address] [place] [address] Nurse Practitioner Nurse Practitioner 10/18/22 Elham Stack, [facility] [address] [place] [address] Pharmacist Pharmacist 10/19/22 Emerita Potter, [facility] Clinic Palliative Care Coordinator Health And Safety Instructor - Clinical 10/29/22 11/02/22 [place] [address] [place] [place] [address] Assigned Pain Medication Provider 10/30/22 12/03/22 Michelle Guzman DPM, Podiatry/Foot and Ankle Surgery [address] [place] [address] Assigned Musculoskeletal Provider 10/16/22 04/08/23 [place] [address] [place] [address] Assigned Pain Medication Provider 12/04/22 04/01/23 [place] [address] [place] [place] [address] Nurse Practitioner Nurse Practitioner 01/17/23 01/17/23 Aubrey Jones MD [address] [place] [address] Cardiovascular Disease 03/28/23 Blanquita Morales Contact Center Professional Diabetes Education 04/25/23 Aubrey Jones MD [address] [place] [address] Assigned Heart and Vascular Provider 05/07/23 documented as of this encounter
--- OUTSIDE RECORDS SUMMARY | 2023-08-03 10:08 | XMS_ITS | Encounter Summary ---
Author Name Unknown Organization [facility] Address [address] [place] [address]. [place] [address] Care Team Providers Care Coverage Analyst Name Role Phone Len Adhikari MD Primary Care Provider + [phone] Jovany Gonzalez MD Unavailable [facility] NP Unavailable [phone] Unavailable [phone] Roshni Nascimento RN Unavailable Unavailable Kiet Swain MD Unavailable [phone] Winsome Pike APRN SPORTS EDITOR Unavailable +[phone] Tori HinesSW Unavailable Miranda Queen [facility] Unavailable Unavailable Winsome Pike APRN SPORTS EDITOR Unavailable +[phone] Marisel Armando MD Unavailable Marisel Armando MD Unavailable Inderjit Ugalde MD Unavailable +[phone] Wesley Barrett MD Unavailable +[phone] Charles Jaramillo PA-C Unavailable +[phone] Miranda Queen [facility] Unavailable Unavailable Leeann Rinaldi MD Unavailable Miranda Queen [facility] Unavailable Unavailable Dyan Fuentes MD Primary Care Provider +[phone] Dyan Fuentes MD Unavailable + [phone] Katiana Read MD Unavailable +[phone] Meme Singleton PhD Unavailable + Greg Deena Lashell CIRCUS ARTIST SPORTS EDITOR Unavailable +[phone] Mary Del Cid NP Unavailable +[phone] Sreekanth El[place] Anthony [facility] Unavailable [phone] AbbeyEmerita Alisha PREASSEMBLER AND INSPECTOR Unavailable +[phone] Mary Del Cid NP Unavailable +[phone] Michelle Guzman DPM, Podiatry /Foot and Ankle Surgery Unavailable Dyan Fuentes MD Unavailable + [phone] Mary Del Cid NP Unavailable +[phone] Aubrey Jones MD Unavailable + [phone] Blanquita Morales Unavailable Unavailable Aubrey Jones MD Unavailable + [phone] Encounter Details Date Type Department Care Team (Late st Contact Info) Description 02/11/2022 [facility]ice [address] [address] Lynda Oliver, COPY MACHINE OPERATOR Social History Tobacco Use Types Packs/Day Years [...] often do you attend chur ch or scientology services? 1 to 4 times per year [...] Answer Date Recorded PHQ-2 Score 2 02/02/2021 [facility] of Occupat ional Health - [...] st Contact Info) Description 08/18/2023 3:00 PM SEWING MACHINE REPAIRER HELPER Office Visit [facility] [address] [facility] [address] [place] [address] Katiana Read MD [address] [place] [address] documented as of this encounter Visit Diagnoses [...] documented as of this encounter Care Teams Coverage Analyst Relationship Specialty Start Date End Date Len Adhikari MD PCP - General Family Practice 11/08/16 05/09/22 [place] [address] [place] [address] PCP - General Family Medicine 05/18/22 Jovany Gonzalez MD [facility] [address] [facility] [address] [place] [address] Orthopedics 02/15/17 Staci Woodward, BUFFING MACHINE OPERATOR [place] [address] [place], [place] [address] Nurse Practitioner Nurse Practitioner Psych/Mental Health 05/10/17 Reanna Smith, [facility] [address] [place], [place] [address] Chute Worker Dietitian, Registered 07/25/19 Roshni Nascimento, RN Personal Advocate & Liaison (PAL) Family Medicine 08/18/20 Kiet Swain MD [address] [facility] [address] [place], [place] 4[address] Referring Physician Psychiatry 09/19/20 Winsome Pike APRN SPORTS EDITOR [address] [place] [address] 099604 Nurse Practitioner Psychiatry 09/19/20 Tori Hines [facility] [address] [place], [place] 92[address] Web Ui Designer Web Ui Designer - Clinical 09/19/20 Miranda Queen [facility] [address] [place] [address] Pharmacist Pharmacist 11/12/20 Winsome Pike APRN SPORTS EDITOR [address] [place] [address] 925874 Assigned Behavioral Health Provider 01/04/21 07/02/22 Marisel Armando MD [address] [place] [address] 412425 Gastroenterology 02/05/21 Marisel Armando MD [address] [place] [address] Assigned Gastroenterology Provider 03/08/21 12/24/22 Inderjit Ugalde MD [address] [facility] [address] [place], [place] 967[address] Assigned Surgical Provider 02/15/21 08/20/22 Wesley Barrett MD [address] [place] [address] 336035 Assigned Neuroscience Provider 05/10/21 Charles Jaramillo PA-C [address] 643805 Assigned Musculoskeletal Provider 04/26/21 10/15/22 [facility] [address] [place] [address] Assigned MTM Pharmacist 12/05/21 03/26/22 [place] [address] [place] [address] Assigned PCP 01/23/22 05/14/22 [facility] [address] [place] [address] Assigned MTM Pharmacist 04/07/22 05/14/22 [place] [address] [place] [address] Assigned PCP 05/15/22 Katiana Read MD [address] [place] [address] 017170 Assigned Endocrinology Provider 06/19/22 [place] PhD [address] [place] [address] Assigned Behavioral Health Provider 07/03/22 12/31/22 Deena Garza, CIRCUS ARTIST SPORTS EDITOR [address] [place] [address] Assigned Pain Medication Provider 07/19/22 10/29/22 Mary Del Cid, BUFFING MACHINE OPERATOR [address] [place] [address] Nurse Practitioner Nurse Practitioner 10/18/22 Elham Stack, [facility] [address] [place] [address] Pharmacist Pharmacist 10/19/22 Emerita Potter, [facility] Clinic Radio Program Director Web Ui Designer - Clinical 10/29/22 11/02/22 [place] [address] [place] [address] Assigned Pain Medication Provider 10/30/22 12/03/22 Michelle uGzman DPM, Podiatry/Foot and Ankle Surgery [address] [place] [address] Assigned Musculoskeletal Provider 10/16/22 04/08/23 [place] [address] [place] [address] Assigned Pain Medication Provider 12/04/22 04/01/23 [place] [address] [place] [address] Nurse Practitioner Nurse Practitioner 01/17/23 01/17/23 Aubrey Jones MD [address] [place] [address] Cardiovascular Disease 03/28/23 Blanquita Morales Chute Worker Diabetes Education 04/25/23 Aubrey Jones MD [address] [place] [address] Assigned Heart and Vascular Provider 05/07/23 documented as of this encounter
--- OUTSIDE RECORDS SUMMARY | 2023-08-03 10:08 | XMS_ITS | Encounter Summary ---
Author Name Unknown Organization [employer] Address [address] [place] [address] Care Team Providers Care Energy Audit Advisor Name Role Phone Len Adhikari MD Primary Care Provider Jovany Gonzalez MD Unavailable CrissyStaci jeong NP Unavailable [phone] Len Adhikari MD Unavailable +[phone] Unavailable [phone] Roshni Nascimento RN Unavailable Unavailable Kiet Swain MD Unavailable [phone] Winsome Pike APRN COMMUNITY ADVOCATE Unavailable +[phone] Tori HinesSW Unavailable Miranda Queen [facility] Unavailable Unavailable Winsome Pike APRN COMMUNITY ADVOCATE Unavailable [phone] Marisel Armando MD Unavailable Marisel Armando MD Unavailable Inderjit Ugalde MD Unavailable [phone] Wesley Barrett MD Unavailable Charles Jaramillo PA-C Unavailable +[phone] Miranda Queen [facility] Unavailable Unavailable Leeann Rinaldi MD Unavailable Miranda Queen [facility] Unavailable Unavailable Dyan Fuentes MD Primary Care Provider +[phone] Dyan Fuentes MD Unavailable + [phone] Katiana Read MD Unavailable +[phone] ManiMeme Dhara PhD Unavailable +[phone] Deena Garza MELT SUPERINTENDANT COMMUNITY ADVOCATE Unavailable +[phone] Mary Del Cid RECORDS MANAGEMENT CLERK Unavailable + [phone] Elham Stack [facility] Unavailable [phone] Abbey Emerita Alisha [facility] Unavailable +[phone] Mary Del Cid RECORDS MANAGEMENT CLERK Unavailable + [phone] Michelle Guzman DPM, Podiatry /Foot and Ankle Surgery Unavailable Dyan Fuentes MD Unavailable +[phone] Mary Del Cid NP Unavailable + [phone] Aubrey Jones MD Unavailable +[phone] Blanquita Morales Unavailable Unavailable Aubrey Jones MD Unavailable + [phone] Reason for Visit * Reason Onset Date Comments Refill Request 12/09/2021 [employer] [facility] Senior Climate Advisor Encounter Details Date Type Department Care Team (Late st Contact Info) Description [facility]/09[facility] [address] [place] [address] Katiaan Read MD [address] [place] [address] Refill Request (Dex[employer] Sensor & Senior Climate Advisor) Social History Tobacco Use Types Packs/Day Years [...] you attend [facility] or tenriism services? 1 to 4 times [...] Answer Date Recorded PHQ-2 Score 2 02/02/2021 [facility] - Occupational Stress Questionnaire Answer Date [...] the money to buy more. Never true 04/08/20 22 Within the past 12 months, t [...] Telephone Encounter - Torri Benites RN - 12/10/2021 9:17 AM CDT Pt needs appt pt has not been seen since 2019. * Telephone Encounter - Katiana Read MD - 12/10/2021 9:12 AM CDT Endo staff- can you please take a look into this? Thank you. documented in this encounter Plan of Treatment Upcoming Encounters Date Type Department Care Team (Late st Contact Info) Description 08/18/2023 3:00 PM APPLIQUER Office Visit [facility] [address] [place] [address] Katiana Read MD [address] [place] [address] documented as of this encounter Visit Diagnoses [...] documented as of this encounter Care Teams Energy Audit Advisor Relationship Specialty Start Date End Date Len Adhikari MD PCP - General Family Practice 11/08/16 05/09/22 [place] [address] [place] [address] PCP - General Family Medicine 05/18/22 Jovany Gonzalez MD [facility] [address] [facility] [address] [place] [address] Orthopedics 02/15/17 Staci Woodward RECORDS MANAGEMENT CLERK [place] [address] [place] [address] Nurse Practitioner Nurse Practitioner Psych/Mental Health 05/10/17 [place] [address] [place] [address] Assigned PCP 11/14/16 01/22/22 Reanna Smith, RD [place] [address] [place], [place] 17[address] Business Loan Processor Dietitian, Registered 07/25/19 Roshni Nascimento, RN Personal Advocate & Liaison (PAL) Family Medicine 08/18/20 Kiet Swain MD [address] [place] [address] [phone] Referring Physician Psychiatry 09/19/20 Winsome Pike APRN COMMUNITY ADVOCATE [address] [place] [address] [phone] Nurse Practitioner Psychiatry 09/19/20 Tori Hines [facility] [address] [place] [address] [phone] Air Brake Worker Air Brake Worker - Clinical 09/19/20 Miranda Queen [facility] [address] [place] [address] Pharmacist Pharmacist 11/12/20 Winsome Pike APRN COMMUNITY ADVOCATE [address] [place] [address] Assigned Behavioral Health Provider 01/04/21 07/02/22 Marisel Armando MD [address] [place] [address] Gastroenterology 02/05/21 Marisel Armando MD [address] [place] [address] Assigned Gastroenterology Provider 03/08/21 12/24/22 Inderjit Ugalde MD [address] [facility] 300 [place] [address] Assigned Surgical Provider 02/15/21 08/20/22 Wesley Barrett MD [address] [facility] 96 [place] [address] Assigned Neuroscience Provider 05/10/21 Charles Jaramillo PA-C [address] [address] Assigned Musculoskeletal Provider 04/26/21 10/15/22 Miranda Queen [facility] [address] [place] [address] Assigned MTM Pharmacist 12/05/21 03/26/22 [place] [address] [place] [address] Assigned PCP 01/23/22 05/14/22 Miranda Queen [facility] [address] [place] [address] Assigned MTM Pharmacist 04/07/22 05/14/22 [place] [address] [place] [address] Assigned PCP 05/15/22 Katiana Read MD [address] [facility] 200 [place] [address] Assigned Endocrinology Provider 06/19/22 Meme Singleton, PhD [address] [place] [address] [place] [address] Assigned Behavioral Health Provider 07/03/22 12/31/22 Deena Garza APRN COMMUNITY ADVOCATE [address] [place] [place] 9[address] Assigned Pain Medication Provider 07/19/22 10/29/22 Mary Del Cid, RAFAEL [address] [place] 960217 Nurse Practitioner Nurse Practitioner 10/18/22 Elham Stack, [facility] [address] [place] [address] Pharmacist Pharmacist 10/19/22 Emerita Potter, [facility] Clinic Control Operator Flow Coat Air Brake Worker - Clinical 10/29/22 11/02/22 Mary Del Cid, RAFAEL [address] [place] [address] Assigned Pain Medication Provider 10/30/22 12/03/22 Michelle Guzman, DPM, Podiatry/Foot and Ankle Surgery [address] [address] [address] Assigned Musculoskeletal Provider 10/16/22 04/08/23 [place] [address] [place] [address] Assigned Pain Medication Provider 12/04/22 04/01/23 [place] [address] [place] [address] Nurse Practitioner Nurse Practitioner 01/17/23 01/17/23 Aubrey Jones MD [address] [place] [address] Cardiovascular Disease 03/28/23 Blanquita Morales Business Loan Processor Diabetes Education 04/25/23 Aubrey Jones MD [address] [place] [address] Assigned Heart and Vascular Provider 05/07/23 documented as of this encounter
--- OUTSIDE RECORDS SUMMARY | 2023-08-03 10:08 | XMS_ITS | Encounter Summary ---
Author Name Unknown Organization [facility] Address [address] [place] [address]. [place] [address] Care Team Providers Care Apparel Trimmings Sales Representative Name Role Phone Len Adhikari MD Primary Care Provider + [phone] Jovany Gonzalez MD Unavailable [facility] NP Unavailable [phone] Unavailable [phone] Roshni Nascimento RN Unavailable Unavailable Kiet Swain MD Unavailable [phone] Winsome Pike APRN CLERK TRAVEL RESERVATIONS Unavailable [phone] Tori HinesSW Unavailable Miranda Queen [facility] Unavailable Unavailable Winsome Pike APRN CLERK TRAVEL RESERVATIONS Unavailable [phone] Marisel Armando MD Unavailable Marisel Armando MD Unavailable Inderjit Ugalde MD Unavailable [phone] Wesley Barrett MD Unavailable [phone] Charles Jaramillo PA-C Unavailable +[phone] Miranda Queen [facility] Unavailable Unavailable Leeann Rinaldi MD Unavailable Miranda Queen [facility] Unavailable Unavailable Dyan Fuentes MD Primary Care Provider [phone] Dyan Fuentes MD Unavailable + [phone] Katiana Read MD Unavailable +[phone] Meme Singleton PhD Unavailable + Greg Deena Lashell HEADLINER INSTALLER CLERK TRAVEL RESERVATIONS Unavailable + Mary Del Cid NP Unavailable +[phone] SreekanthElham Anthony [facility] Unavailable [phone] Abbey Emerita Alisha [facility] Unavailable [phone] Mary Del Cid NP Unavailable +[phone] Michelle Guzman DPM, Podiatry /Foot and Ankle Surgery Unavailable Dyan Fuentes MD Unavailable + [phone] Mary Del Cid NP Unavailable +[phone] Aubrey Jones MD Unavailable [phone] Blanquita Morales Unavailable Unavailable Aubrey Jones MD Unavailable + [phone] Encounter Details Date Type Department Care Team (Late st Contact Info) Description 03/02/2022 [facility] Medical Advice [address] [address] Roshni Nascimento RN Social History [...] you attend [employer] [facility] or rastafarian services? 1 to 4 times per year [...] Answer Date Recorded PHQ-2 Score 2 02/02/2021 [facility] Occupat ional [facility] - Occupational Stress Questionnaire Answer Date [...] st Contact Info) Description 08/18/2023 3:00 PM LICENSED OPTICAL DISPENSER Office Visit [facility] [address] [place] [address] Katiana Read MD [address] [address] [place] [address] documented as of this encounter Visit Diagnoses [...] documented as of this encounter Care Teams Apparel Trimmings Sales Representative Relationship Specialty Start Date End Date Len Adhikari MD PCP - General Family Practice 11/08/16 05/09/22 [place] [address] [place] [address] PCP - General Family Medicine 05/18/22 Jovany Gonzalez MD [facility] [address] [facility] [address] [place], [place] 194[address] Orthopedics 02/15/17 Staci Woodward TIGHT BARREL INSPECTOR [facility] [address] [place], [place] 143277 Nurse Practitioner Nurse Practitioner Psych/Mental Health 05/10/[address] [facility] [address] [place], [place] 532[address] Marketing Program Coordinator Dietitian, Registered 07/25/19 Roshni Nascimento, RN Personal Advocate & Liaison (PAL) Family Medicine 08/18/20 Kiet Swain MD [address] [facility] [address] [place] [address] Referring Physician Psychiatry 09/19/20 Winsome Pike APRN CLERK TRAVEL RESERVATIONS [address] [place] [address] Nurse Practitioner Psychiatry 09/19/20 Tori Hines, [facility] [address] [place], [place] 933924 Reinforcer Reinforcer - Clinical 09/19/20 Miranda Queen, [facility] [address] [place] [address] Pharmacist Pharmacist 11/12/20 Winsome Pike APRN CLERK TRAVEL RESERVATIONS [address] [place] [address] [phone] Assigned Behavioral Health Provider 01/04/21 07/02/22 Marisel Armando MD [address] [place] [address] 604975 Gastroenterology 02/05/21 Marisel Armando MD [address] [place] [address] 964665 Assigned Gastroenterology Provider 03/08/21 12/24/22 Inderjit Ugalde MD [address] [facility] 300 [place], [place] 483537 Assigned Surgical Provider 02/15/21 08/20/22 Wesley Barrett MD [address] [place] [address] 96 [place], [place] 160665 Assigned Neuroscience Provider 05/10/21 Charles Jaramillo PA-C [address] 929945 Assigned Musculoskeletal Provider 04/26/21 10/15/22 [facility] [address] [place] [address] Assigned MTM Pharmacist 12/05/21 03/26/22 [place] [address] [place] [address] Assigned PCP 01/23/22 05/14/22 [facility] [address] [place] [address] Assigned MTM Pharmacist 04/07/22 05/14/22 [place] [address] [place] [address] Assigned PCP 05/15/22 Katiana Read MD [address] [address] Assigned Endocrinology Provider 06/19/22 Meme [place] PhD [address] [place] [address] Assigned Behavioral Health Provider 07/03/22 12/31/22 Deena Gazra, HEADLINER INSTALLER CLERK TRAVEL RESERVATIONS [address] [place] [address] Assigned Pain Medication Provider 07/19/22 10/29/22 Mary Del Cid, RAFAEL [address] [place] [address] Nurse Practitioner Nurse Practitioner 10/18/22 Elham Stack, [facility] 3033 [place] [address] Pharmacist Pharmacist 10/19/22 Emerita Potter, [facility] Clinic Fretted String Instrument Repairer Reinforcer - Clinical 10/29/22 11/02/22 Mary Del Cid, RAFAEL [address] [place] [address] Assigned Pain Medication Provider 10/30/22 12/03/22 Michelle Guzman, DPM, Podiatry/Foot and Ankle Surgery [address] [place] [address] Assigned Musculoskeletal Provider 10/16/22 04/08/23 [place] [address] [place] [address] Assigned Pain Medication Provider 12/04/22 04/01/23 [place] [address] [place] [address] Nurse Practitioner Nurse Practitioner 01/17/23 01/17/23 Aubrey Jones MD [address] [place] [address] Cardiovascular Disease 03/28/23 Blanquita Morales Marketing Program Coordinator Diabetes Education 04/25/23 Aubrey Jones MD [address] [place] [address] Assigned Heart and Vascular Provider 05/07/23 documented as of this encounter
--- OUTSIDE RECORDS SUMMARY | 2023-08-03 10:08 | XMS_ITS | Encounter Summary ---
Author Name Unknown Organization [facility] Address [address] [place] [address] Care Team Providers Care Hall Clerk Name Role Phone Len Adhikari MD Primary Care Provider Jovany Gonzalez MD Unavailable CrissyStaci jeong NP Unavailable [phone] Len Adhikari MD Unavailable Reanna Smith RD Unavailable [phone] Roshni Nascimento RN Unavailable Unavailable Kiet Swain MD Unavailable [phone] Winsome Pike APRN BRIM PRESSER Unavailable [phone] Tori HinesSW Unavailable Miranda Queen [facility] Unavailable Unavailable Winsome Pike APRN BRIM PRESSER Unavailable [phone] Marisel Armando MD Unavailable Marisel Armando MD Unavailable Inderjit Ugalde MD Unavailable [phone] Wesley Barrett MD Unavailable Charles Jaramillo PA-C Unavailable +[phone] Miranda Queen [facility] Unavailable Unavailable Leeann Rinaldi MD Unavailable Miranda Queen [facility] Unavailable Unavailable Dyan Fuentes MD Primary Care Provider [phone] Dyan Fuentes MD Unavailable + [phone] Katiana Read MD Unavailable +[phone] Meme Singleton PhD Unavailable +[phone] Deena Garza NICKING MACHINE OPERATOR BRIM PRESSER Unavailable +[phone] Mary Del Cid NON ACOUSTIC OPERATOR Unavailable + [phone] Elham Stack [facility] Unavailable [phone] Abbey Emerita M [facility] Unavailable [phone] Mary Del Cid NP Unavailable + [phone] Michelle Guzman DPM, Podiatry /Foot and Ankle Surgery Unavailable Dyan Fuentes MD Unavailable [phone] Mary Del Cid NP Unavailable + [phone] Aubrey Jones MD Unavailable + [phone] Blanquita Morales Unavailable Unavailable Aubrey Jones MD Unavailable + [phone] Reason for Visit * Reason Comments Medication Refill Encounter Details Date Type Department Care Team (Late st Contact Info) Description 11/18/2021 [facility] [address] [place] [address] [place] [address] [place] [address] Medication Refill Social History Tobacco Use Types [...] any clubs o r organizations such as congregation groups, unions, fraternal or athletic groups, or [...] Answer Date Recorded PHQ-2 Score 2 02/02/2021 [facility] - Occupational Stress Questionnaire Answer Date [...] suspected to have Coronavirus/COVID-19? No / Unsure 11/15/2021 10:46 AM CDT documented as of this encounter Miscellaneous Notes * Telephone Encounter - Roshni Nascimento RN - 11/18/2021 5:39 PM CDT Prescription approved per [facility] Refill Protocol. Roshni Nascimento RN documented in this encounter Plan of Treatment Upcoming Encounters Date Type Department Care Team (Late st Contact Info) Description 08/18/2023 3:00 PM CREATIVE MANAGER Office Visit [place] [address] [facility] [address] [place] [address] Katiana Read MD [address] [place] [address] documented as of this encounter Visit Diagnoses Diagnosis Anxiety Anxiety state, unspecified documented in this encounter Additional Health Concerns [...] documented as of this encounter Care Teams Hall Clerk Relationship Specialty Start Date End Date Len Adhikari MD PCP - General Family Practice 11/08/16 05/09/22 [place] [address] [place] [address] PCP - General Family Medicine 05/18/22 Jovany Gonzalez MD [facility] [address] [facility] 605 [place], [place] 9[address] Orthopedics 02/15/17 Staci Woodward NON ACOUSTIC OPERATOR [place] [address] [place], [place] [address] Nurse Practitioner Nurse Practitioner Psych/Mental Health 05/10/17 [place] [address] [place] [address] Assigned PCP 11/14/16 01/22/[address] [facility] [address] [place], [place] [address] Coverer Dietitian, Registered 07/25/19 Roshni Nascimento, RN Personal Advocate & Liaison (PAL) Family Medicine 08/18/20 Kiet Swain MD [address] [place] [address] Referring Physician Psychiatry 09/19/20 Winsome Pike APRN BRIM PRESSER [address] [place] [address] [phone] Nurse Practitioner Psychiatry 09/19/20 Tori Hines [facility] [address] [place] [address] [phone] Warehouse Person Warehouse Person - Clinical 09/19/20 Miranda Queen [facility] [address] [place] [address] Pharmacist Pharmacist 11/12/20 Winsome Pike APRN BRIM PRESSER [address] [place] [address] Assigned Behavioral Health Provider 01/04/21 07/02/22 Marisel Armando MD [address] [place] [address] Gastroenterology 02/05/21 Marisel Armando MD 909 [place] [address] Assigned Gastroenterology Provider 03/08/21 12/24/22 Inderjit Ugalde MD [address] [place] [address] Assigned Surgical Provider 02/15/21 08/20/22 Wesley Barrett MD 420 [facility] 96 [place] [address] Assigned Neuroscience Provider 05/10/21 Charles Jaramillo PA-C 65[address] [facility] 450 [place] [address] Assigned Musculoskeletal Provider 04/26/21 10/15/22 [facility] [address] [place] [address] Assigned MTM Pharmacist 12/05/21 03/26/22 [place] [address] [place] [address] Assigned PCP 01/23/22 05/14/22 Miranda Queen [facility] [address] [place] [address] Assigned MTM Pharmacist 04/07/22 05/14/22 [place] [address] [place] [address] Assigned PCP 05/15/22 Katiana Read MD [address] [place] [address] Assigned Endocrinology Provider 06/19/22 [place] [address] [place] [address] Assigned Behavioral Health Provider 07/03/22 12/31/22 Deena Garza APRN BRIM PRESSER [address] [place] [address] Assigned Pain Medication Provider 07/19/22 10/29/22 [place] [address] [place] [address] Nurse Practitioner Nurse Practitioner 10/18/22 Elham Stack, [facility] [address] [place], [place] 28[address] Pharmacist Pharmacist 10/19/22 Emerita Potter, [facility] Clinic Inclusion Intern Warehouse Person - Clinical 10/29/22 11/02/22 Mary Del Cid, RAFAEL [address] [place] [address] Assigned Pain Medication Provider 10/30/22 12/03/22 Michelle Guzman DPM, Podiatry/Foot and Ankle Surgery [address] [place] [address] Assigned Musculoskeletal Provider 10/16/22 04/08/23 [place] [address] [place] [address] Assigned Pain Medication Provider 12/04/22 04/01/23 [place] [address] [place] [address] Nurse Practitioner Nurse Practitioner 01/17/23 01/17/23 Aubrey Jones MD [address] [place] [address] Cardiovascular Disease 03/28/23 Blanquita Morales Coverer Diabetes Education 04/25/23 Aubrey Jones MD [address] [place] [address] Assigned Heart and Vascular Provider 05/07/23 documented as of this encounter
--- OUTSIDE RECORDS SUMMARY | 2023-08-03 10:08 | XMS_ITS | Encounter Summary ---
Author Name Unknown Organization [place] Address [address] [place] [address] Care Team Providers Care Content Development Manager Name Role Phone Len Adhikari MD Primary Care Provider [phone] Jovany Gonzalez MD Unavailable CrissyStaci jeong NP Unavailable [phone] Len Adhikari MD Unavailable Reanna Smith RD Unavailable Roshni Nascimento RN Unavailable Unavailable Kiet Swain MD Unavailable [phone] Winsome Pike APRN BILINGUAL CASE MANAGER Unavailable [phone] Tori HinesSW Unavailable Miranda Queen [facility] Unavailable Unavailable Winsome Pike APRN BILINGUAL CASE MANAGER Unavailable [phone] Marisel Armando MD Unavailable Marisel Armando MD Unavailable Inderjit Ugalde MD Unavailable [phone] Wesley Barrett MD Unavailable Charles Jaramillo PA-C Unavailable +[phone] Miranda Queen [facility] Unavailable Unavailable Leeann Rinaldi MD Unavailable Miranda Queen [facility] Unavailable Unavailable Dyan Fuentes MD Primary Care Provider +[phone] Dyan Fuentes MD Unavailable [phone] Katiana Read MD Unavailable +[phone] Meme Singleton PhD Unavailable +[phone] Deena Garza CATERING DRIVER BILINGUAL CASE MANAGER Unavailable +[phone] Mary Del Cid CONVEYOR MAN Unavailable + [phone] StackElham Anthony [facility] Unavailable [phone] Emerita Potter [facility] Unavailable [phone] Mary Del Cid NP Unavailable + [phone] Michelle Guzman DPM, Podiatry /Foot and Ankle Surgery Unavailable Dyan Fuentes MD Unavailable +[phone] Mary Del Cid NP Unavailable + [phone] Aubrey Jones MD Unavailable +[phone] Blanquita Morales Unavailable Unavailable Aubrey Jones MD Unavailable + [phone] Encounter Details Date Type Department Care Team (Late st Contact Info) Description 11/24/2021 [facility] [address] [address] Elina Painting, ZITA Social History Tobacco Use Types Packs/Day Years [...] How often do you attend chur or quaker services? 1 to 4 times per year [...] Answer Date Recorded PHQ-2 Score 2 02/02/2021 [facility] - Occupational Stress Questionnaire Answer Date [...] st Contact Info) Description 08/18/2023 3:00 PM FOUNDRY METALLURGIST Office Visit [facility] [address] [place] [address] Katiana Read MD [address] [place] [address] documented as of this encounter Visit Diagnoses [...] documented as of this encounter Care Teams Content Development Manager Relationship Specialty Start Date End Date Len Adhikari MD PCP - General Family Practice 11/08/16 05/09/22 [place] [address] [place] [address] PCP - General Family Medicine 05/18/22 Jovany Gonzalez MD [facility] 66[address] [facility] 605 [place], [place] 116585 Orthopedics 02/15/17 Staci Woodward CONVEYOR MAN [place] [address] [place], [place] 441407 Nurse Practitioner Nurse Practitioner Psych/Mental Health 05/10/17 [place] [address] [facility] [place] [address] Assigned PCP 11/14/16 01/22/[address] [facility] [address] [place] [address] Back Tender Dietitian, Registered 07/25/19 Roshni Nascimento, RN Personal Advocate & Liaison (PAL) Family Medicine 08/18/20 Kiet Swain MD [address] [place] [address] Referring Physician Psychiatry 09/19/20 Winsome Pike APRN BILINGUAL CASE MANAGER [address] [place] [address] [phone] Nurse Practitioner Psychiatry 09/19/20 Tori Hines [facility] [address] [place] [address] [phone] Flexo Operator Flexo Operator - Clinical 09/19/20 Miranda Queen [facility] [address] [place] [address] Pharmacist Pharmacist 11/12/20 Winsome Pike APRN BILINGUAL CASE MANAGER [address] [place] [address] [phone] Assigned Behavioral Health Provider 01/04/21 07/02/22 Marisel Armando MD [address] [place] [address] Gastroenterology 02/05/21 Marisel Armando MD [address] [place] [address] Assigned Gastroenterology Provider 03/08/21 12/24/22 Inderjit Ugalde MD [address] [address] Assigned Surgical Provider 02/15/21 08/20/22 Wesley Barrett MD [address] [place] [address] 96 [place] [address] Assigned Neuroscience Provider 05/10/21 Charles Jaramillo PA-C 6545 [facility] 450 [place] [address] Assigned Musculoskeletal Provider 04/26/21 10/15/22 [facility] [address] [place] [address] Assigned MTM Pharmacist 12/05/21 03/26/22 [place] [address] [place] [address] Assigned PCP 01/23/22 05/14/22 Miranda Queen [facility] [address] [place] [address] Assigned MTM Pharmacist 04/07/22 05/14/22 [place] [address] [place] [address] Assigned PCP 05/15/22 Katiana Read MD [address] [place] [address] 200 [place] [address] Assigned Endocrinology Provider 06/19/22 Meme Singleton, PhD [address] [place] [address] Assigned Behavioral Health Provider 07/03/22 12/31/22 Deena Garza APRN BILINGUAL CASE MANAGER [address] [place] 95[address]27 Assigned Pain Medication Provider 07/19/22 10/29/22 [place] [address] [place] [address] Nurse Practitioner Nurse Practitioner 10/18/22 Elham Stack, [facility] [address] [facility] [place] [address] Pharmacist Pharmacist 10/19/22 Emerita Potter, [facility] Clinic Director Hydrogen Storage Engineering Flexo Operator - Clinical 10/29/22 11/02/22 [place] [address] [place] [address] Assigned Pain Medication Provider 10/30/22 12/03/22 Michelle Guzman DPM, Podiatry/Foot and Ankle Surgery [address] [place] [place] [address] Assigned Musculoskeletal Provider 10/16/22 04/08/23 [place] [address] [place] [address] Assigned Pain Medication Provider 12/04/22 04/01/23 [place] [address] [place] [address] Nurse Practitioner Nurse Practitioner 01/17/23 01/17/23 Aubrey Jones MD [address] [place] [address] Cardiovascular Disease 03/28/23 Blanquita Morales Back Tender Diabetes Education 04/25/23 Aubrey Jones MD [address] [place] [address] Assigned Heart and Vascular Provider 05/07/23 documented as of this encounter
--- OUTSIDE RECORDS SUMMARY | 2023-08-03 10:08 | XMS_ITS | Encounter Summary ---
Author Name Unknown Organization [place] Address [address] [place] [address] Care Team Providers Care Last Repairer Name Role Phone Len Adhikari MD Primary Care Provider Jovany Gonzalez MD Unavailable CrissyStaci jeong NP Unavailable [phone] Len Adhikari MD Unavailable [phone] Unavailable Roshni Nascimento RN Unavailable Unavailable Kiet Swain MD Unavailable [phone] Winsome Pike APRN UAT TESTER Unavailable [phone] Tori HinesSW Unavailable Miranda Queen [facility] Unavailable Unavailable Winsome Pike APRN UAT TESTER Unavailable [phone] Marisel Armando MD Unavailable Marisel Armando MD Unavailable Inderjit Ugalde MD Unavailable [phone] Wesley aBrrett MD Unavailable Charles Jaramillo PA-C Unavailable +[phone] Miranda Queen [facility] Unavailable Unavailable Leeann Rinaldi MD Unavailable Miranda Queen [facility] Unavailable Unavailable Dyan Fuentes MD Primary Care Provider [phone] Dyan Fuentes MD Unavailable [phone] Katiana Read MD Unavailable +[phone] Meme Singleton PhD Unavailable +[phone] Deena Garza BOTTLING MACHINE OPERATOR UAT TESTER Unavailable [phone] Mary Del Cid GRINDER BRAKE LINING Unavailable +[phone] Elham Stack [facility] Unavailable [phone] Abbey Emerita M [facility] Unavailable [phone] Mary Del Cid NP Unavailable + [phone] Michelle Guzman DPM, Podiatry /Foot and Ankle Surgery Unavailable Dyan Fuentes MD Unavailable [phone] Mary Del Cid NP Unavailable + [phone] Aubrey Jones MD Unavailable [phone] Blanquita Morales Unavailable Unavailable Aubrey Jones MD Unavailable + [phone] Encounter Details Date Type Department Care Team (Late st Contact Info) Description 12/29/2021 [facility] Medical Advice [facility] Neurology [address], [address] [address] Berna Lundberg, RN Social History Tobacco Use Types Packs/Day [...] often do you attend chur ch or pentecostalism services? 1 to 4 times [...] Answer Date Recorded PHQ-2 Score 2 02/02/2021 [facility] - Occupational Stress Questionnaire Answer Date [...] suspected to have Coronavirus/COVID-19? No / Unsure 12/22/2021 12:51 PM CDT documented as of this encounter Plan of Treatment Upcoming Encounters Date Type Department Care Team (Late st Contact Info) Description 08/18/2023 3:00 PM COKE INSPECTOR Office Visit [facility] [address] [place] [address] Katiana Read MD [address] [place] [address] documented as of this encounter Visit Diagnoses [...] documented as of this encounter Care Teams Last Repairer Relationship Specialty Start Date End Date Len Adhikari MD PCP - General Family Practice 11/08/16 05/09/22 [place] [address] [place] [address] PCP - General Family Medicine 05/18/22 Jovany Gonzalez MD [facility] 6600 [facility] 605 [place], [place] 648685 Orthopedics 02/15/17 Staci Woodward GRINDER BRAKE LINING [place] [address] [place], [place] 884277 Nurse Practitioner Nurse Practitioner Psych/Mental Health 05/10/17 [place] [address] [facility]3][place] [address] Assigned PCP 11/14/16 01/22/[address] [facility] [address] [place] [address] Hand Tennis Ball Coverer Dietitian, Registered 07/25/19 Roshni Nascimento, RN Personal Advocate & Liaison (PAL) Family Medicine 08/18/20 Kiet Swain MD [address] [place] [address] [place] [address] 396904 Referring Physician Psychiatry 09/19/20 Winsome Pike APRN UAT TESTER [address] [place] [address] 900544 Nurse Practitioner Psychiatry 09/19/20 Tori Hines, [facility] [address] [place] [address] [phone] Health And Wellness Manager Health And Wellness Manager - Clinical 09/19/20 Miranda Queen [facility] [address] [place] [address] Pharmacist Pharmacist 11/12/20 Winsome Pike APRN UAT TESTER [address] [place] [address] 746384 Assigned Behavioral Health Provider 01/04/21 07/02/22 Marisel Armando MD [address] [place] [address] Gastroenterology 02/05/21 Marisel Armando MD [address] [place] [address] Assigned Gastroenterology Provider 03/08/21 12/24/22 Inderjit Ugalde MD [address] [address] Assigned Surgical Provider 02/15/21 08/20/22 Wesley Barrett MD [address] [place] [address] 96 [place] [address] Assigned Neuroscience Provider 05/10/21 Charles Jaramillo PA-C 6545 [facility] 450 [place] [address] Assigned Musculoskeletal Provider 04/26/21 10/15/22 Miranda Queen [facility] [address] [place] [address] Assigned MTM Pharmacist 12/05/21 03/26/22 [place] [address] [place] [address] Assigned PCP 01/23/22 05/14/22 Miranda Queen [facility] [address] [place] [address] Assigned MTM Pharmacist 04/07/22 05/14/22 [place] [address] [place] [address] Assigned PCP 05/15/22 Katiana Read MD [address] [place] [address] 200 [place] [address] Assigned Endocrinology Provider 06/19/22 Meme [place] PhD [address] [place] 0[address]27 Assigned Behavioral Health Provider 07/03/22 12/31/22 Deena Garza APRN UAT TESTER [address] [place] 201047 Assigned Pain Medication Provider 07/19/22 10/29/22 [place] [address] [place] [place] [address] Nurse Practitioner Nurse Practitioner 10/18/22 Elham Stack, [facility] [address] [place] [address] Pharmacist Pharmacist 10/19/22 Emerita Potter, [facility] Clinic Atomizer Assembler Health And Wellness Manager - Clinical 10/29/22 11/02/22 [place] [address] [place] [place] [address] Assigned Pain Medication Provider 10/30/22 12/03/22 Michelle Guzman DPM, Podiatry/Foot and Ankle Surgery [address] [address] [address] Assigned Musculoskeletal Provider 10/16/22 04/08/23 [place] [address] [place] [address] Assigned Pain Medication Provider 12/04/22 04/01/23 [place] [address] [place] [address] Nurse Practitioner Nurse Practitioner 01/17/23 01/17/23 Aubrey oJnes MD [address] [place] [address] Cardiovascular Disease 03/28/23 Blanquita Morales Hand Tennis Ball Coverer Diabetes Education 04/25/23 Aubrey Jones MD [address] [place] [address] Assigned Heart and Vascular Provider 05/07/23 documented as of this encounter
--- OUTSIDE RECORDS SUMMARY | 2023-08-03 10:08 | XMS_ITS | Encounter Summary ---
Author Name Unknown Organization [place] Address [address] [place] [address] Care Team Providers Care Battalion Chief Name Role Phone Len Adhikari MD Primary Care Provider Jovany Gonzalez MD Unavailable [phone] CrissyStaci jeong NP Unavailable [phone] Len Adhikari MD Unavailable [phone] Unavailable Roshni Nascimento RN Unavailable Unavailable Kiet Swain MD Unavailable [phone] Winsome Pike APRN CONVEYOR MONITOR Unavailable [phone] Tori HinesSW Unavailable Miranda Queen [facility] Unavailable Unavailable Winsome Pike APRN CONVEYOR MONITOR Unavailable [phone] Marisel Armando MD Unavailable Marisel Armando MD Unavailable Inderjit Ugalde MD Unavailable [phone] Wesley Barrett MD Unavailable Charles Jaramillo PA-C Unavailable +[phone] Miranda Queen [facility] Unavailable Unavailable Leeann Rinaldi MD Unavailable Miranda Queen [facility] Unavailable Unavailable Dyan Fuentes MD Primary Care Provider [phone] Dyan Fuentes MD Unavailable + [phone] Katiana Read MD Unavailable +[phone] Meme Singleton PhD Unavailable +[phone] Deena Garza STUBBER CONVEYOR MONITOR Unavailable [phone] Mary Del Cid SERVICE OPERATOR Unavailable + [phone] Elham Stack [facility] Unavailable [phone] [facility] Unavailable [phone] Mary Del Cid NP Unavailable + [phone] Michelle Guzman DPM, Podiatry /Foot and Ankle Surgery Unavailable Dyan Fuentes MD Unavailable [phone] Mary Del Cid NP Unavailable + [phone] Aubrey Jones MD Unavailable + [phone] Blanquita Morales Unavailable Unavailable Aubrey Jones MD Unavailable + [phone] Reason for Visit * Reason Comments Medication Refill Encounter Details Date Type Department Care Team (Late st Contact Info) Description 12/28/2021 [facility] [address] [place] [address] [place] [address] [place] [address] Medication Refill Social History Tobacco [...] often do you attend chur ch or nondenominational services? 1 to 4 times per year [...] Answer Date Recorded PHQ-2 Score 2 02/02/2021 [facility] - Occupational Stress Questionnaire [...] Telephone Encounter - Roshni Nascimento RN - 12/29/2021 1:26 PM CDT NO RF needed at this time Roshni Nascimento RN documented in this encounter Plan of Treatment Upcoming Encounters Date Type Department Care Team (Late st Contact Info) Description 08/18/2023 3:00 PM JAVA CORE DEVELOPER Office Visit [facility] [address] [facility] [address] [place] [address] Katiana Read MD [address] [facility] 200 [place] [address] documented as of this encounter Visit Diagnoses Diagnosis Gastroesophageal reflux disease without esophagitis Esophageal reflux documented in this encounter Additional Health Concerns [...] documented as of this encounter Care Teams Battalion Chief Relationship Specialty Start Date End Date Len Adhikari MD PCP - General Family Practice 11/08/16 05/09/22 [place] [address] [place] [address] PCP - General Family Medicine 05/18/22 Jovany Gonzalez MD [facility] [address] [facility] 605 [place], [place] 6640[address] Orthopedics 02/15/17 Staci Woodward SERVICE OPERATOR [place] [address] [address] [place], [place] [address] Nurse Practitioner Nurse Practitioner Psych/Mental Health 05/10/17 [place] [address] [place] [address] Assigned PCP 11/14/16 01/22/[address] [facility] [address] [place], [place] 410697 Optimization Analyst Dietitian, Registered 07/25/19 Roshni Nascimento, RN Personal Advocate & Liaison (PAL) Family Medicine 08/18/20 Kiet Swain MD [address] [place] [address] Referring Physician Psychiatry 09/19/20 Winsome Pike APRN CONVEYOR MONITOR [address] [place] [address] 908334 Nurse Practitioner Psychiatry 09/19/[address] [facility] [address] [place] [address] 075534 Mold Builder Mold Builder - Clinical 09/19/20 [place] [address] [place] [address] Pharmacist Pharmacist 11/12/20 Winsome Pike APRN CONVEYOR MONITOR [address] [place] [address] Assigned Behavioral Health Provider 01/04/21 07/02/22 Marisel Armando MD [address] [place] [address] Gastroenterology 02/05/21 Marisel Armando MD 909 [place] [address] Assigned Gastroenterology Provider 03/08/21 12/24/22 Inderjit Ugalde MD [address] [facility] 300 [place] [address] Assigned Surgical Provider 02/15/21 08/20/22 Wesley Barrett MD 420 [facility] 96 [place] [address] Assigned Neuroscience Provider 05/10/21 Charles Jaramillo PA-C 65[address] [facility] 450 [place] [address] Assigned Musculoskeletal Provider 04/26/21 10/15/22 [facility] [address] [place] [address] Assigned MTM Pharmacist 12/05/21 03/26/22 [place] [address] [place] [address] Assigned PCP 01/23/22 05/14/22 Miranda Queen [facility] [address] [place] [address] Assigned MTM Pharmacist 04/07/22 05/14/22 [place] [address] [place] [address] Assigned PCP 05/15/22 Katiana Read MD [address] [place] [address] Assigned Endocrinology Provider 06/19/22 [place] [address] [place] [address] Assigned Behavioral Health Provider 07/03/22 12/31/22 Deena Garza APRN CONVEYOR MONITOR [address] [place] [address] Assigned Pain Medication Provider 07/19/22 10/29/22 Mary Del Cid, RAFAEL [address] [place] [address] Nurse Practitioner Nurse Practitioner 10/18/22 Elham Stack, [facility] [address] [place], [place] [address] Pharmacist Pharmacist 10/19/22 Emerita Potter, [facility] Clinic Tin Plater Mold Builder - Clinical 10/29/22 11/02/22 Mary Del Cid, RAFAEL [address] [place] [address] Assigned Pain Medication Provider 10/30/22 12/03/22 Michelle Guzman DPM, Podiatry/Foot and Ankle Surgery [address] [place] [address] Assigned Musculoskeletal Provider 10/16/22 04/08/23 [place] [address] [place] [address] Assigned Pain Medication Provider 12/04/22 04/01/23 [place] [address] [place] [address] Nurse Practitioner Nurse Practitioner 01/17/23 01/17/23 Aubrey Jones MD [address] [place] [address] Cardiovascular Disease 03/28/23 Blanquita Morales Optimization Analyst Diabetes Education 04/25/23 Aubrey Jones MD [address] [place] [address] Assigned Heart and Vascular Provider 05/07/23 documented as of this encounter
--- OUTSIDE RECORDS SUMMARY | 2023-08-03 10:09 | XMS_ITS | Encounter Summary ---
Author Name Unknown Organization [facility] Address [address] [place] [address]. [place] [address] Care Team Providers Care Brake Repairer Name Role Phone Len Adhikari MD Primary Care Provider Jovany Gonzalez MD Unavailable CrissyStaci jeong TRIAL JUSTICE Unavailable [phone] Len Adhikari MD Unavailable Reanna Smith RD Unavailable Katiana Read MD Unavailable [phone] Roshni Nascimento RN Unavailable Unavailable Kiet Swain MD Unavailable [phone] Winsome Pike APRN RESEARCH PHYSICIAN Unavailable [phone] Tori HinesSW Unavailable Miranda Queen [facility] Unavailable Unavailable Winsome Pike APRN RESEARCH PHYSICIAN Unavailable [phone] Marisel Armando MD Unavailable Marisel Armando MD Unavailable Inderjit Ugalde MD Unavailable [phone] Wesley Barrett MD Unavailable [phone] Charles Jaramillo PA-C Unavailable [phone] Miranda Queen [facility] Unavailable Unavailable Leeann Rinaldi MD Unavailable Miranda Queen [facility] Unavailable Unavailable Dyan Fuentes MD Primary Care Provider [phone] Dyan Fuentes MD Unavailable [phone] Katiana Read MD Unavailable [phone] Meme Singleton PhD Unavailable +[phone] Deena Garza NOTCH GRINDER RESEARCH PHYSICIAN Unavailable [phone] Mary Del Cid TRIAL JUSTICE Unavailable + [phone] Elham Stack [facility] Unavailable [phone] Abbey Emerita M [facility] Unavailable [phone] Mary Del Cid TRIAL JUSTICE Unavailable + [phone] Michelle Guzman DPM, Podiatry /Foot and Ankle Surgery Unavailable Dyan Fuentes MD Unavailable [phone] Mary Del Cid NP Unavailable + [phone] Aubrey Jones MD Unavailable [phone] Blanquita Morales Unavailable Unavailable Aubrey Jones MD Unavailable [phone] Encounter Details Date Type Department Care Team (Late st Contact Info) Description 07/27/2021 [facility] [address] [facility] [address] [place] [address] Katiana Read MD [address] [place] [address] Social History Tobacco Use Types Packs/Day Years Used Date Smoking Tobacco: Every Day Cigarettes 0.5 40 Smokeless Tobacco: Never Comments:down to 4 cigs per day Alcohol Use Standard Drinks/Week Comments Not Currently 0 (1 standard drink = 0.6 oz pur e alcohol) Social Connection and Isolat ion Panel [NHANES] Answer Date Recorded In a typical week, how many times do you talk on the phone with family, friends, or neighbors? More than three times a week 09/20/2020 How often do you get togethe r with friends or relatives? Never 09/20/2020 How often do you attend chur ch or congregational services? Never 09/20/2020 Do you belong to any clubs o r organizations such as shinto groups, unions, fraternal or athletic groups, or school groups? No 09/20/2020 How often do you attend meet ings of the clubs or organizations you belong to? Never 09/20/2020 Are you , , di vorced, , never , or living with a partner? 09/20/2020 AUDIT-C Answer Date Recorded Q1: How often do you have a drink containing alc ohol? Monthly or less 09/20/2020 Q2: How many drinks containi ng alcohol do you have on a typical day when you are drinking? 1 or 2 09/20/2020 Q3: How often do you have si x or more drinks on one occasion? Never 09/20/2020 Overall Financial Resource Strain (CARDIA) Answe r Date Recorded How hard is it for you to pa y for the very basics like food, housing, medical care, and heating? Not hard at all 09/20/2020 PHQ-2 Answer Date Recorded PHQ-2 Score 2 02/02/2021 [facility] Questionnaire Answer Date Recorded Do you feel stress - tense, restless, nervous, or anxious, or unable to sleep at night because your mind is troubled all the time - these days? Very much 09/20/2020 Exercise Vital Sign Answer Date Recorde d On average, how many days pe r week do you engage in moderate to strenuous exercise (like a brisk walk)? 2 days 09/20/2020 On average, how many minutes do you engage in exercise at this level? 20 min 09/20/2020 Hunger Vital Sign Answer Date Recorded Within the past 12 months, y ou worried that your food would run out before you got the money to buy more. Never true 09/21/19 21 Within the past 12 months, t he food you bought just didn't last and you didn't have money to get more. Never true 09/20/2020 PRAPARE - Transportation Answer Date Re corded In the past 12 months, has l ack of transportation kept you from medical appointments or from getting medications? No 09/08 In the past 12 months, has l ack of transportation kept you from meetings, work, or from getting things needed for daily living? No 09/20/2020 Housing Stability Vital Sign Answer Henrique e Recorded In the last 12 months, was t here a time when you were not able to pay the mortgage or rent on time? No 09/20/2020 In the last 12 months, how many places have you lived? 1 09/20/2020 In the last 12 months, was t here a time when you did not have a steady place to sleep or slept in a residential (including now)? No 09/20/2020 Education Answer Date Recorded What is the [...] Exposure Response Date Recorded In the last month, have you been in contact with someone who was confirmed or suspected to have Coronavirus / COVID-19? No / Unsure 07/17/2021 4:05 PM HOMELAND SECURITY PROGRAM SPECIALIST documented as of this encounter Plan of Treatment Upcoming Encounters Date Type Department Care Team (Late st Contact Info) Description 08/18/2023 3:00 PM HOMELAND SECURITY PROGRAM SPECIALIST Office Visit [facility] [address] [place] [address] Katiana Read MD [address] [place] [address] documented as of this encounter Visit Diagnoses [...] documented as of this encounter Care Teams Brake Repairer Relationship Specialty Start Date End Date Len Adhikari MD PCP - General Family Practice 11/08/16 05/09/22 [place] [address] [place] [address] PCP - General Family Medicine 05/18/22 Jovany Gonzalez MD [facility] [address] [facility] [address] [place], [place] [address] Orthopedics 02/15/17 Staci Woodward, TRIAL JUSTICE [facility] [address] [place], [place] [address] Nurse Practitioner Nurse Practitioner Psych/Mental Health 05/10/17 [place] [address] [facility] [place] [address] Assigned PCP 11/14/16 01/22/[address] [facility] [address] [place] [address] Crna Dietitian, Registered 07/25/19 Katiana Read MD [address] [address] Assigned Endocrinology Provider 05/02/20 08/01/21 Roshni Nascimento, RN Personal Advocate & Liaison (PAL) Family Medicine 08/18/20 Kiet Swain MD [address] [place] [address] Referring Physician Psychiatry 09/19/20 Winsome Pike APRN RESEARCH PHYSICIAN [address] [place] [address] 123144 Nurse Practitioner Psychiatry 09/19/20 Tori Hines [facility] [address] [place] [address] [id number] Instructor Physical Education Instructor Physical Education - Clinical 09/19/20 [place] [address] [place] [address] Pharmacist Pharmacist 11/12/20 Winsome Pike APRN RESEARCH PHYSICIAN [address] [place] [address] Assigned Behavioral Health Provider 01/04/21 07/02/22 Marisel Armando MD [address] [place] [address] Gastroenterology 02/05/21 Marisel Armando MD [address] [place] [address] Assigned Gastroenterology Provider 03/08/21 12/24/22 Inderjit Ugalde MD [address] [facility] [address] [place] [address] Assigned Surgical Provider 02/15/21 08/20/22 Wesley Barrett MD [address] [facility] [address] [place] [address] Assigned Neuroscience Provider 05/10/21 Charles Jaramillo PA-C [address] [facility] [address] [place] [address] Assigned Musculoskeletal Provider 04/26/21 10/15/22 [facility] [address] [place] [address] Assigned MTM Pharmacist 12/05/21 03/26/22 [place] [address] [place] [address] Assigned PCP 01/23/22 05/14/22 Miranda Queen [facility] [address] [place] [address] Assigned MTM Pharmacist 04/07/22 05/14/22 [place] [address] [place] [address] Assigned PCP 05/15/22 Katiana Read MD [address] [place] [address] Assigned Endocrinology Provider 06/19/22 [place] [address] [place] [address] Assigned Behavioral Health Provider 07/03/22 12/31/22 Deena Garza APRN RESEARCH PHYSICIAN [address] [place] [address] Assigned Pain Medication Provider 07/19/22 10/29/22 Mary Del Cid, RAFAEL [address] [place] [address] Nurse Practitioner Nurse Practitioner 10/18/22 Elham Stack, [facility] [address] [facility] [place] [place] [address] Pharmacist Pharmacist 10/19/22 Emerita Potter, [facility] Clinic Supervisor Malted Milk Instructor Physical Education - Clinical 10/29/22 11/02/22 Mary Del Cid, RAFAEL [address] [place] [address] Assigned Pain Medication Provider 10/30/22 12/03/22 Michelle Guzman, DPM, Podiatry/Foot and Ankle Surgery [address] [place] [address] Assigned Musculoskeletal Provider 10/16/22 04/08/23 [place] [address] [place] [address] Assigned Pain Medication Provider 12/04/22 04/01/23 [place] [address] [address] [place] [address] Nurse Practitioner Nurse Practitioner 01/17/23 01/17/23 Aubrey Jones MD [address] [place] [address] Cardiovascular Disease 03/28/23 Blanquita Morales Crna Diabetes Education 04/25/23 Aubrey Jones MD [address] [place] [address] Assigned Heart and Vascular Provider 05/07/23 documented as of this encounter
--- OUTSIDE RECORDS SUMMARY | 2023-08-03 10:09 | XMS_ITS | Encounter Summary ---
Author Name Unknown Organization [facility] Address [address] [place] [address]. [place] [address] Care Team Providers Care Binman Name Role Phone Len Adhikari MD Primary Care Provider Jovany Gonzalez MD Unavailable [phone] CrissyStaci jeong LEAN SPECIALIST Unavailable [phone] Len Adhikari MD Unavailable [phone] Unavailable Katiana Read MD Unavailable [phone] Roshni Nascimento RN Unavailable Unavailable Kiet Swain MD Unavailable [phone] Winsome Pike APRN WEIGHER PACKING Unavailable [phone] Tori HinesSW Unavailable Miranda Queen [facility] Unavailable Unavailable Winsome Pike APRN WEIGHER PACKING Unavailable [phone] Marisel Armando MD Unavailable Marisel Armando MD Unavailable Inderjit Ugalde MD Unavailable [phone] Wesley Barrett MD Unavailable [phone] Charles Jaramillo PA-C Unavailable [phone] Miranda Queen [facility] Unavailable Unavailable Leeann Rinaldi MD Unavailable Miranda Queen [facility] Unavailable Unavailable Dyan Fuentes MD Primary Care Provider [phone] Dyan Fuentes MD Unavailable [phone] Katiana Read MD Unavailable [phone] Meme Singleton PhD Unavailable +[phone] Deena Garza GRAPHIC ENGINEER WEIGHER PACKING Unavailable [phone] Mary Del Cid LEAN SPECIALIST Unavailable + [phone] Elham Stack [facility] Unavailable [phone] Abbey Emerita Alisha [facility] Unavailable [phone] Mary Del Cid LEAN SPECIALIST Unavailable + [phone] Michelle Guzman DPM, Podiatry /Foot and Ankle Surgery Unavailable Dyan Fuentes MD Unavailable [phone] Mary Del Cid NP Unavailable [phone] Aubrey Jones MD Unavailable [phone] Blanquita Morales Unavailable Unavailable Aubrey Jones MD Unavailable [phone] Reason for Visit * Reason Comments Medication Refill Encounter Details Date Type Department Care Team (Late st Contact Info) Description 06/21/2021 Telephone [facility] [address] [place] [address] Katiana Read MD [address] [place] [address] Medication Refill Social History Tobacco Use Types [...] you attend chur ch or baptist services? Never 09/20/2020 Do you belong to any clubs o r organizations such as lutheran groups, unions, fraternal or athletic groups, or [...] Answer Date Recorded PHQ-2 Score 2 02/02/2021 [facility] Questionnaire Answer Date [...] slept in a usp (including now)? No 09/20/2020 Education Answer Date [...] have Coronavirus / COVID-19? No / Unsure 06/18/2021 7:29 PM BRIM CUTTER documented as of this encounter Miscellaneous Notes * Telephone Encounter - Torri Benites RN - 06/26/2021 9:20 AM BRIM CUTTER Left message with to have patient call back to inform her that she will need labs a week prior to follow up. Lab orders placed. CUTTER * Telephone Encounter - AvelUma - 06/25/2021 4:14 PM CST Appointment scheduled for 08.31.2021. If patients need labs before the appointment please let her know and she will plan to have labs done with her PCP's office CUTTER * Telephone Encounter - Davina Pablo - 06/22/2021 12:55 PM CST 06/22 - lvm x 1 CUTTER * Telephone Encounter - Torri Benites RN - 06/22/2021 11:45 AM BRIM CUTTER Please call patient and set up follow up appointment. Short supply sent. Patient needs to be seen for any further refills. CUTTER documented in this encounter Plan of Treatment Upcoming Encounters Date Type Department Care Team (Late st Contact Info) Description 08/18/2023 3:00 PM BRIM CUTTER Office Visit [facility] [address] [facility] [address] [place] [address] Katiana Read MD [address] [facility] [address] [place] [address] documented as of this encounter Results * (ABNORMAL) T3, Free (06/12/2022 4:28 PM BRIM CUTTER) T3 Free 0.4(L) 2.0 - 4.4 pg/mL 06/13/2022 4:17 PM [facility]IM C[facility]TER [facility] Blood STRUCTURE OF RIGHT UPPER LIMB / Unknown Venipuncture / Unknown 06/12/2022 4:28 PM BRIM CUTTER 06/12/2022 4:29 PM BRIM CUTTER Katiana Read MD LAB - BLOOD ORDER [facility] [address] [facility], [address] [place] [address], [facility] [phone] * (ABNORMAL) T4, free (06/12/2022 4:28 PM BRIM CUTTER) Pathologist [facility] Free T4 <0.10(L) 0.90 - 1.70 ng/dL 06/13/2022 4:16 PM BRIM CUTTER [facility] Blood STRUCTURE OF RIGHT UPPER LIMB / Unknown Venipuncture / Unknown 06/12/2022 4:28 PM BRIM CUTTER 06/12/2022 4:29 PM BRIM CUTTER Katiana Read MD LAB - BLOOD ORDER [facility] [address] [facility], [address] [place] [address], [facility] [phone] * (ABNORMAL) TSH (06/12/2022 4:28 PM BRIM CUTTER) [facility] TSH 290.00(H) 0.30 - 4.20 uIU/mL 06/13/2022 4:25 PM BRIM CUTTER [facility] Blood STRUCTURE OF RIGHT UPPER LIMB / Unknown Venipuncture / Unknown 06/12/2022 4:28 PM BRIM CUTTER 06/12/2022 4:29 PM BRIM CUTTER Katiana Read MD LAB - BLOOD ORDER [facility] [address] [facility], [address] [place] [address], [facility] [phone] * (ABNORMAL) Hemoglobin A1c (06/12/2022 4:28 PM BRIM CUTTER) Pathologist [facility] Hemoglobin A1C 5.9(H) 0.0 - 5.6 % 06/12/2022 5:08 PM BRIM CUTTER [facility] Comment: Normal <5.7% Prediabetes 5.7-6.4% ?? Diabetes 6.5% or higher Note: Adopted from ADA consensus guidelines. Blood STRUCTURE OF RIGHT UPPER LIMB / Unknown Venipuncture / Unknown 06/12/2022 4:28 PM BRIM CUTTER 06/12/2022 4:29 PM BRIM CUTTER Katiana Read MD LAB - BLOOD ORDER [facility] [address] [facility] (no room number, 1st floor of clinic) [place] [address], [facility] [phone] documented in this encounter Visit Diagnoses Diagnosis Postprocedural hypothyroidism- Primary Postsurgical hypothyroidism Type 2 diabetes mellitus without complication, [...] documented as of this encounter Care Teams Binman Relationship Specialty Start Date End Date Len Adhikari MD PCP - General Family Practice 11/08/16 05/09/22 [place] [address] [place] [address] PCP - General Family Medicine 05/18/22 Jovany Gonzalez MD [facility] [address] [facility] [address] [place] [address] Orthopedics 02/15/17 Staci Woodward LEAN SPECIALIST [facility] [address] [place], [place] [address] Nurse Practitioner Nurse Practitioner Psych/Mental Health 05/10/17 [place] [address] [place] [address] Assigned PCP 11/14/16 01/22/[address] [facility] [address] [place] [address] General Contractor Dietitian, Registered 07/25/19 Katiana Read MD [address] [place] [address] 200 [place], [place] [phone] Assigned Endocrinology Provider 05/02/20 08/01/21 Roshni Nascimento, RN Personal Advocate & Liaison (PAL) Family Medicine 08/18/20 Kiet Swain MD [address] [place], [place] [address] [place], [place] [address] Referring Physician Psychiatry 09/19/20 Winsome Pike APRN WEIGHER PACKING [address] [place] [address] [id number] Nurse Practitioner Psychiatry 09/19/20 Tori Hines, [facility] [place] [address] Enrichment Teacher Enrichment Teacher - Clinical 09/19/20 Miranda Queen, [facility] [address] [place] [address] Pharmacist Pharmacist 11/12/20 Winsome Pike APRN WEIGHER PACKING [address] [address] Assigned Behavioral Health Provider 01/04/21 07/02/22 Marisel Armando MD [address] [place] [address] 735505 Gastroenterology 02/05/21 Marisel Armando MD [address] [place] [address] 497585 Assigned Gastroenterology Provider 03/08/21 12/24/22 Inderjit Ugalde MD [address] [facility] [address] [place], [place] [address] Assigned Surgical Provider 02/15/21 08/20/22 Wesley Barrett MD [address] [facility] [address] [place], [place] [address] Assigned Neuroscience Provider 05/10/21 Charles Jaramillo PA-C [address] [address] Assigned Musculoskeletal Provider 04/26/21 10/15/22 [place] [address] [place] [address] Assigned MTM Pharmacist 12/05/21 03/26/22 [place] [address] [place] [address] Assigned PCP 01/23/22 05/14/22 Miranda Queen [facility] [address] [place] [address] Assigned MTM Pharmacist 04/07/22 05/14/22 [place] [address] [place] [address] Assigned PCP 05/15/22 Katiana Read MD [address] [place] [address] Assigned Endocrinology Provider 06/19/22 [place] [address] [place] [address] Assigned Behavioral Health Provider 07/03/22 12/31/22 Deena Garza APRN WEIGHER PACKING [address] [place] [address] Assigned Pain Medication Provider 07/19/22 10/29/22 Mary Del Cid, RAFAEL [address] [place] [address] Nurse Practitioner Nurse Practitioner 10/18/22 Elham Stack, [facility] [address] [place] [address] Pharmacist Pharmacist 10/19/22 Emerita Potter, [facility] Clinic Riprap Man Enrichment Teacher - Clinical 10/29/22 11/02/22 Mary Del Cid, RAFAEL [address] [place] [place] [address] Assigned Pain Medication Provider 10/30/22 12/03/22 Michelle Guzman, ALDOM, Podiatry/Foot and Ankle Surgery [address] [place] [address] Assigned Musculoskeletal Provider 10/16/22 04/08/23 [place] [address] [place] [address] Assigned Pain Medication Provider 12/04/22 04/01/23 [place] [address] [place] [address] Nurse Practitioner Nurse Practitioner 01/17/23 01/17/23 Aubrey Jones MD [address] [place] [address] Cardiovascular Disease 03/28/23 Blanquita Morales General Contractor Diabetes Education 04/25/23 Aubrey Jones MD [address] [place] [address] Assigned Heart and Vascular Provider 05/07/23 documented as of this encounter
--- OUTSIDE RECORDS SUMMARY | 2023-08-03 10:09 | XMS_ITS | Encounter Summary ---
Author Name Unknown Organization [place] Address [address] [place] [address] Care Team Providers Care Promotions Specialist Name Role Phone Len Adhikari MD Primary Care Provider Jovany Gonzalez MD Unavailable [phone] CrissyStaci jeong NP Unavailable [phone] Len Adhikari MD Unavailable Reanna Smith RD Unavailable Roshni Nascimento RN Unavailable Unavailable Kiet Swain MD Unavailable [phone] Winsome Pike APRN HAND CHAIN MAKER Unavailable [phone] Tori HinesSW Unavailable Miranda Queen [facility] Unavailable Unavailable Winsome Pike APRN HAND CHAIN MAKER Unavailable [phone] Marisel Armando MD Unavailable Marisel Armando MD Unavailable Inderjit Ugalde MD Unavailable [phone] Wseley Barrett MD Unavailable Charles Jaramillo PA-C Unavailable [phone] Miranda Queen [facility] Unavailable Unavailable Leeann Rinaldi MD Unavailable Miranda Queen [facility] Unavailable Unavailable Dyan Fuentes MD Primary Care Provider [phone] Dyan Fuentes MD Unavailable +[phone] Katiana Read MD Unavailable [phone] Meme Singleton PhD Unavailable +[phone] Deena Garza PLANT MECHANIC HAND CHAIN MAKER Unavailable [phone] Mary Del Cid HEALTH INSURANCE ASSESSOR Unavailable +[phone] StackElham [facility] Unavailable [phone] Abbey Emerita M [facility] Unavailable [phone] Mary Del Cid NP Unavailable + [phone] Michelle Guzman DPM, Podiatry /Foot and Ankle Surgery Unavailable Dyan Fuentes MD Unavailable [phone] Mary Del Cid NP Unavailable + [phone] Aubrey Jones MD Unavailable [phone] Blanquita Morales Unavailable Unavailable Aubrey Jones MD Unavailable [phone] Encounter Details Date Type Department Care Team (Late st Contact Info) Description 10/16/2021 [facility] [address] [place] [address] Wesley Barrett MD [address] [place] [address] 96 [place] [address] Social History Tobacco Use Types Packs/Day Years [...] any clubs o r organizations such as synagogue groups, unions, fraternal or athletic groups, or [...] Answer Date Recorded PHQ-2 Score 2 02/02/2021 [facility] - Occupational [...] suspected to have Coronavirus/COVID-19? No / Unsure 10/19/2021 7:44 AM CDT documented as of this encounter Plan of Treatment Upcoming Encounters Date Type Department Care Team (Late st Contact Info) Description 08/18/2023 3:00 PM HUMAN RESOURCES DIRECTOR Office Visit [facility] [address] [place] [address] Katiana Read MD [address] [place] [address] documented as of this encounter Visit Diagnoses [...] documented as of this encounter Care Teams Promotions Specialist Relationship Specialty Start Date End Date Len Adhikari MD PCP - General Family Practice 11/08/16 05/09/22 [place] [address] [place] [address] PCP - General Family Medicine 05/18/22 Jovany Gonzalez MD [facility] 66[address] [facility] [address] [place] [address] Orthopedics 02/15/17 Staci Woodward HEALTH INSURANCE ASSESSOR [place] [address] [place] [address] Nurse Practitioner Nurse Practitioner Psych/Mental Health 05/10/17 [place] [address] [facility] [address] Assigned PCP 11/14/16 01/22/[address] [place] [address] [place] [address] Instructor Dancing Dietitian, Registered 07/25/19 Roshni Nascimento, RN Personal Advocate & Liaison (PAL) Family Medicine 08/18/20 Kiet Swain MD [address] [place] [address] [place] [address] Referring Physician Psychiatry 09/19/20 Winsome Pike APRN HAND CHAIN MAKER [address] [place] [address] Nurse Practitioner Psychiatry 09/19/20 Tori Hines, [facility] [address] [place] [address] Land Development Manager Land Development Manager - Clinical 09/19/20 [facility] [address] [place] [address] Pharmacist Pharmacist 11/12/20 Winsome Pike APRN HAND CHAIN MAKER [address] [place] [address] Assigned Behavioral Health Provider 01/04/21 07/02/22 Marisel Armando MD [address] [place] [address] Gastroenterology 02/05/21 Marisel Armando MD [address] [place] [address] Assigned Gastroenterology Provider 03/08/21 12/24/22 Inderjit Ugalde MD [address] [facility] 300 [place] [address] Assigned Surgical Provider 02/15/21 08/20/22 Wesley Barrett MD 420 [facility] 96 [place] [address] Assigned Neuroscience Provider 05/10/21 Charles Jaramillo PA-C 6545 [facility] 450 [place] [address] Assigned Musculoskeletal Provider 04/26/21 10/15/22 Miranda Queen [facility] [address] [place] [address] Assigned MTM Pharmacist 12/05/21 03/26/22 [place] [address] [place] [address] Assigned PCP 01/23/22 05/14/22 Miranda Queen [facility] [address] [place] [address] Assigned MTM Pharmacist 04/07/22 05/14/22 [place] [address] [place] [address] Assigned PCP 05/15/22 Katiana Read MD [address] [place] [address] 200 [place] [address] Assigned Endocrinology Provider 06/19/22 [place] [address] [place] [address] Assigned Behavioral Health Provider 07/03/22 12/31/22 Deena Garza, PLANT MECHANIC HAND CHAIN MAKER [address] [place] [address] Assigned Pain Medication Provider 07/19/22 10/29/22 [place] [address] [address] [place] [address] Nurse Practitioner Nurse Practitioner 10/18/22 Elham Stack, [facility] [address] [place] [address] Pharmacist Pharmacist 10/19/22 Emerita Potter, [facility] Clinic Mud Jack Nozzleman Land Development Manager - Clinical 10/29/22 11/02/22 [place] [address] [address] [place] [address] Assigned Pain Medication Provider 10/30/22 12/03/22 Michelle Guzman, DPM, Podiatry/Foot and Ankle Surgery [address] [place] [address] Assigned Musculoskeletal Provider 10/16/22 04/08/23 [place] [address] [place] [address] Assigned Pain Medication Provider 12/04/22 04/01/23 [place] [address] [address] [place] [address] Nurse Practitioner Nurse Practitioner 01/17/23 01/17/23 Aubrey Jones MD [address] [place] [address] Cardiovascular Disease 03/28/23 Blanquita Morales Instructor Dancing Diabetes Education 04/25/23 Aubrey Jones MD [address] [place] [address] Assigned Heart and Vascular Provider 05/07/23 documented as of this encounter
--- OUTSIDE RECORDS SUMMARY | 2023-08-03 10:09 | XMS_ITS | Encounter Summary ---
Author Name Unknown Organization [place] Address [address] [place] [address] Care Team Providers Care Harm Reduction Worker Name Role Phone Len Adhikari MD Primary Care Provider [phone] Jovany Gonzalez MD Unavailable CrissyStaci jeong NP Unavailable [phone] Len Adhikari MD Unavailable [phone] Unavailable Roshni Nascimento RN Unavailable Unavailable Kiet Swain MD Unavailable [phone] Winsome Pike APRN HOME EXTENSION AGENT Unavailable [phone] Tori HinesSW Unavailable Miranda Queen [facility] Unavailable Unavailable Winsome Pike APRN HOME EXTENSION AGENT Unavailable [phone] Marisel Armando MD Unavailable Marisel Armando MD Unavailable Inderjit Ugalde MD Unavailable [phone] Wesley Barrett MD Unavailable Charles Jaramillo PA-C Unavailable [phone] Miranda Queen [facility] Unavailable Unavailable Leeann Rinaldi MD Unavailable Miranda Queen [facility] Unavailable Unavailable Dyan Fuentes MD Primary Care Provider [phone] Dyan Fuentes MD Unavailable [phone] Katiana Read MD Unavailable [phone] Meme Singleton PhD Unavailable +[phone] Deena Garza TELEPHONE LINEMAN HOME EXTENSION AGENT Unavailable [phone] Mary Del Cid CAP MACHINE OPERATOR Unavailable + [phone] StackElham [facility] Unavailable [phone] Emerita Potter [facility] Unavailable [phone] Mary Del Cid NP Unavailable + [phone] Michelle Guzman DPM, Podiatry /Foot and Ankle Surgery Unavailable Dyan Fuentes MD Unavailable [phone] Mary Del Cid NP Unavailable + [phone] Aubrey Jones MD Unavailable [phone] Blanquita Morales Unavailable Unavailable Aubrey Jones MD Unavailable [phone] Encounter Details Date Type Department Care Team (Late st Contact Info) Description 09/24/2021 [facility] [address] [address] Wesley Barrett MD [address] [place] [address] Social History Tobacco Use Types Packs/Day [...] often do you attend chur ch or taoism services? Never 09/20/2020 Do you belong to [...] Answer Date Recorded PHQ-2 Score 2 02/02/2021 [facility]at [facility] - [...] slept in a jail (including now)? No 09/20/2020 Education Answer Date [...] have Coronavirus / COVID-19? No / Unsure 09/22/2021 9:16 AM CDT documented as of this encounter Plan of Treatment Upcoming Encounters Date Type Department Care Team (Late st Contact Info) Description 08/18/2023 3:00 PM SENIOR ACCOUNT REPRESENTATIVE Office Visit [facility] [address] [place] [address] Katiana Read MD [address] [facility] 200 [place] [address] documented as of this encounter Visit Diagnoses [...] documented as of this encounter Care Teams Harm Reduction Worker Relationship Specialty Start Date End Date Len Adhikari MD PCP - General Family Practice 11/08/16 05/09/22 [place] [address] [place] [address] PCP - General Family Medicine 05/18/22 Jovany Gonzalez MD [facility] 6600 [facility] 605 [place], [place] 2212[address] Orthopedics 02/15/17 Staci Woodward CAP MACHINE OPERATOR [place] [address] [place], [place] [address] Nurse Practitioner Nurse Practitioner Psych/Mental Health 05/10/17 [place] [address] [facility] [place] [address] Assigned PCP 11/14/16 01/22/[address] [facility] [address] [place] [address] Internal Controls Specialist Dietitian, Registered 07/25/19 Roshni Nascimento, RN Personal Advocate & Liaison (PAL) Family Medicine 08/18/20 Kiet Swain MD [address] [place] [address] [address] [place] [address] Referring Physician Psychiatry 09/19/20 Winsome Pike APRN HOME EXTENSION AGENT [address] [place] [address] Nurse Practitioner Psychiatry 09/19/20 Tori Hines, [facility] [address] [place] [address] 748394 Cage Maker Cage Maker - Clinical 09/19/20 Miranda Queen [facility] [address] [place] [address] Pharmacist Pharmacist 11/12/20 Winsome Pike APRN HOME EXTENSION AGENT [address] [place] [address] 185374 Assigned Behavioral Health Provider 01/04/21 07/02/22 Marisel Armando MD [address] [place] [address] Gastroenterology 02/05/21 Marisel Armando MD 9 [place] [address] Assigned Gastroenterology Provider 03/08/21 12/24/22 Inderjit Ugalde MD [address] [address] Assigned Surgical Provider 02/15/21 08/20/22 Wesley Barrett MD 420 [facility] 96 [place] [address] Assigned Neuroscience Provider 05/10/21 Charles Jaramillo PA-C 6545 [facility] 450 [place] [address] Assigned Musculoskeletal Provider 04/26/21 10/15/22 [facility] [address] [place] [address] Assigned MTM Pharmacist 12/05/21 03/26/22 [place] [address] [place] [address] Assigned PCP 01/23/22 05/14/22 [facility] [address] [place] [address] Assigned MTM Pharmacist 04/07/22 05/14/22 [place] [address] [place] [address] Assigned PCP 05/15/22 Katiana Read MD [address] [place] [address] 200 [place] [address] Assigned Endocrinology Provider 06/19/22 [place] [address] [place] [address] Assigned Behavioral Health Provider 07/03/22 12/31/22 Deena Garza, TELEPHONE LINEMAN HOME EXTENSION AGENT [address] [place] [address] Assigned Pain Medication Provider 07/19/22 10/29/22 [place] [address] [place] [address] Nurse Practitioner Nurse Practitioner 10/18/22 Elham Stack, [facility] [address] [place] [address] Pharmacist Pharmacist 10/19/22 Emerita Potter, [facility] Clinic Make Up Operator Helper Cage Maker - Clinical 10/29/22 11/02/22 [place] [address] [place] [address] Assigned Pain Medication Provider 10/30/22 12/03/22 Michelle Guzman, DPM, Podiatry/Foot and Ankle Surgery [address] [place] [address] Assigned Musculoskeletal Provider 10/16/22 04/08/23 [place] [address] [place] [address] Assigned Pain Medication Provider 12/04/22 04/01/23 [place] [address] [place] [address] Nurse Practitioner Nurse Practitioner 01/17/23 01/17/23 Aubrey Jones MD [address] [place] [address] Cardiovascular Disease 03/28/23 Blanquita Morales Internal Controls Specialist Diabetes Education 04/25/23 Aubrey Jones MD [address] [place] [address] Assigned Heart and Vascular Provider 05/07/23 documented as of this encounter
--- OUTSIDE RECORDS SUMMARY | 2023-08-03 10:09 | XMS_ITS | Encounter Summary ---
Author Name Unknown Organization [place] Address [address] [place] [address] Care Team Providers Care Sap Basis Administrator Name Role Phone Len Adhikari MD Primary Care Provider Jovayn Gonzalez MD Unavailable CrissyStaci jeong NP Unavailable [phone] Len Adhikari MD Unavailable Reanna [address] Unavailable [phone] Roshni Nascimento RN Unavailable Unavailable Kiet Swain MD Unavailable [phone] Winsome Pike APRN REGIONAL REFRIGERATED CDL TRUCK DRIVER Unavailable [phone] Tori HinesSW Unavailable Miranda Queen [facility] Unavailable Unavailable Winsome Pike APRN REGIONAL REFRIGERATED CDL TRUCK DRIVER Unavailable [phone] Marisel Armando MD Unavailable Marisel Armando MD Unavailable Inderjit Ugalde MD Unavailable [phone] Wesley Barrett MD Unavailable Charles Jaramillo PA-C Unavailable [phone] Miranda Queen [facility] Unavailable Unavailable Leeann Rinaldi MD Unavailable Miranda Queen [facility] Unavailable Unavailable Dyan Fuentes MD Primary Care Provider [phone] Dyan Fuentes MD Unavailable [phone] Katiana Read MD Unavailable [phone] Meme Singleton PhD Unavailable +[phone] Deena Garza IMAGING CLERK REGIONAL REFRIGERATED CDL TRUCK DRIVER Unavailable [phone] Mary Del Cid RIGHT OF WAY CUTTER Unavailable +[phone] StackElham [facility] Unavailable [phone] Abbey Emerita M [facility] Unavailable [phone] Mary Del Cid NP Unavailable + [phone] Michelle Guzman DPM, Podiatry /Foot and Ankle Surgery Unavailable Dyan Fuentes MD Unavailable [phone] Mary eDl Cid NP Unavailable + [phone] Aubrey Jones MD Unavailable [phone] Blanquita Morales Unavailable Unavailable Aubrey Jones MD Unavailable [phone] Encounter Details Date Type Department Care Team (Late st Contact Info) Description 10/16/2021 [facility] [address] [place] [address] Wseley Barrett MD [address] [place] [address] 96 [place] [address] Social History Tobacco Use Types [...] How often do you attend chur or holiness services? 1 to 4 times per year [...] Answer Date Recorded PHQ-2 Score 2 02/02/2021 [facility] of Occupat ional Health [...] st Contact Info) Description 08/18/2023 3:00 PM PREFITTER DOORS Office Visit [facility] [address] [place] [address] Katiana Read MD [address] [place] [address] documented as of this encounter Visit Diagnoses [...] documented as of this encounter Care Teams Sap Basis Administrator Relationship Specialty Start Date End Date Len Adhikari MD PCP - General Family Practice 11/08/16 05/09/22 [place] [address] [place] [address] PCP - General Family Medicine 05/18/22 Jovany Gonzalez MD [facility] 6600 [facility] 605 [place] [address] Orthopedics 02/15/[address] C[address] [place] [address] [place] [address] Nurse Practitioner Nurse Practitioner Psych/Mental Health 05/10/17 [place] [address] [facility] [place] [address] Assigned PCP 11/14/16 01/22/[address] [place] [address] [place] [address] Litigation Manager Dietitian, Registered 07/25/19 Roshni Nascimento, RN Personal Advocate & Liaison (PAL) Family Medicine 08/18/20 Kiet Swain MD [address] [place] [address] [place] [address] Referring Physician Psychiatry 09/19/20 Winsome Pike APRN REGIONAL REFRIGERATED CDL TRUCK DRIVER [address] [place] [address] Nurse Practitioner Psychiatry 09/19/20 Tori Hines, [facility] [address] [place] [address] Creamery Worker Creamery Worker - Clinical 09/19/[address] [facility] [address] [place] [address] Pharmacist Pharmacist 11/12/20 Winsome Pike APRN REGIONAL REFRIGERATED CDL TRUCK DRIVER [address] [place] [address] Assigned Behavioral Health Provider 01/04/21 07/02/22 Marisel Armando MD [address] [place] [address] Gastroenterology 02/05/21 Marisel Armando MD [address] [place] [address] Assigned Gastroenterology Provider 03/08/21 12/24/22 Inderjit Ugalde MD [address] [facility] 300 [place] [address] Assigned Surgical Provider 02/15/21 08/20/22 Wesley Barrett MD 420 [facility] 96 [place] [address] Assigned Neuroscience Provider 05/10/21 Charles Jaramillo PA-C 6545 [facility] 450 [place] [address] Assigned Musculoskeletal Provider 04/26/21 10/15/22 Miranda Queen [facility] [address] [place] [address] Assigned MTM Pharmacist 12/05/21 03/26/22 [place] [address] [place] [address] Assigned PCP 01/23/22 05/14/22 Miranda Queen [facility] [address] [place] [address] Assigned MTM Pharmacist 04/07/22 05/14/22 [place] [address] [place] [address] Assigned PCP 05/15/22 Katiana Read MD [address] [place] [address] 200 [place] [address] Assigned Endocrinology Provider 06/19/22 Meme [place] [address] [place] [address] Assigned Behavioral Health Provider 07/03/22 12/31/22 Deena Garza, IMAGING CLERK REGIONAL REFRIGERATED CDL TRUCK DRIVER [address] [place] [place] [address] Assigned Pain Medication Provider 07/19/22 10/29/22 [place] [address] [address] [address] Nurse Practitioner Nurse Practitioner 10/18/22 Elham Stack, [facility] [address] [place] [address] Pharmacist Pharmacist 10/19/22 Emerita Potter, [facility] Clinic Blueprint Developer Creamery Worker - Clinical 10/29/22 11/02/22 [place] [address] [address] [address] Assigned Pain Medication Provider 10/30/22 12/03/22 Michelle Guzman, DPM, Podiatry/Foot and Ankle Surgery [address] [place] [address] Assigned Musculoskeletal Provider 10/16/22 04/08/23 [place] [address] [place] [address] Assigned Pain Medication Provider 12/04/22 04/01/23 [place] [address] [address] [address] Nurse Practitioner Nurse Practitioner 01/17/23 01/17/23 Aubrey Jones MD [address] [place] [address] Cardiovascular Disease 03/28/23 Blanquita Morales Litigation Manager Diabetes Education 04/25/23 Aubrey Jones MD [address] [place] [address] Assigned Heart and Vascular Provider 05/07/23 documented as of this encounter
--- OUTSIDE RECORDS SUMMARY | 2023-08-03 10:09 | XMS_ITS | Encounter Summary ---
Author Name Unknown Organization [facility] Address [address] [place] [address]. [place] [address] Care Team Providers Care Traffic Safety Administrator Name Role Phone Len Adhikari MD Primary Care Provider Jovany Gonzalez MD Unavailable CrissyStaci jeong MOMD TEACHER Unavailable [phone] Len Adhikari MD Unavailable [phone] Unavailable [phone] Katiana Read MD Unavailable +[phone] Roshni Nascimento RN Unavailable Unavailable Kiet Swain MD Unavailable [phone] Winsome Pike APRN RADIOLOGY INTERVENTIONAL PHYSICIAN Unavailable [phone] Tori HinesSW Unavailable Miranda Queen [facility] Unavailable Unavailable Winsome Pike APRN RADIOLOGY INTERVENTIONAL PHYSICIAN Unavailable [phone] Marisel Armando MD Unavailable Marisel Armando MD Unavailable Inderjit Ugalde MD Unavailable [phone] Wesley Barrett MD Unavailable [phone] Charles Jaramillo PA-C Unavailable +[phone] Miranda Queen [facility] Unavailable Unavailable Leeann Rinaldi MD Unavailable Miranda Queen [facility] Unavailable Unavailable Dyan Fuentes MD Primary Care Provider +[phone] Dyan Fuentes MD Unavailable + [phone] Katiana Read MD Unavailable +[phone] Meme Singleton PhD Unavailable + Deena Garza ELECTRONIC REPAIR TROUBLESHOOTER RADIOLOGY INTERVENTIONAL PHYSICIAN Unavailable +[phone] Mary Del Cid MOMD TEACHER Unavailable + [phone] Elham Stack [facility] Unavailable +[phone] Emerita Potter [facility] Unavailable [phone] Mary Del Cid MOMD TEACHER Unavailable + [phone] Michelle Guzman DPM, Podiatry /Foot and Ankle Surgery Unavailable Dyan Fuentes MD Unavailable +[phone] Mary Del Cid NP Unavailable +[phone] Aubrey Jones MD Unavailable +[phone] Blanquita Morales Unavailable Unavailable Aubrey Jones MD Unavailable + [phone] Encounter Details Date Type Department Care Team (Late st [facility]) Description 07/01/2021 [facility] [address] [place] [id number] Kendal Watters Social History Tobacco Use Types Packs/Day Years [...] often do you attend chur ch or episcopalian services? Never 09/20/2020 Do you belong to [...] Answer Date Recorded PHQ-2 Score 2 02/02/2021 [facility] of Occupat ional [...] slept in a alf (including now)? No 09/20/2020 Education Answer Date [...] have Coronavirus / COVID-19? No / Unsure 07/03/2021 3:22 PM CARPENTER ROUGH documented as of this encounter Plan of Treatment Upcoming Encounters Date Type Department Care Team (Late st Contact Info) Description 08/18/2023 3:00 PM CARPENTER ROUGH Office Visit [facility] [address] [place] [address] Katiana Read MD [address] [place] [address] documented as of this encounter Visit Diagnoses [...] documented as of this encounter Care Teams Traffic Safety Administrator Relationship Specialty Start Date End Date Len Adhikari MD PCP - General Family Practice 11/08/16 05/09/22 [place] [address] [place] [address] PCP - General Family Medicine 05/18/22 Jovany Gonzalez MD [facility] 66[address] [facility] 605 [place] [address] Orthopedics 02/15/17 Staci Woodward MOMD TEACHER [place] [address] [place], [place] [address] Nurse Practitioner Nurse Practitioner Psych/Mental Health 05/10/17 [place] [address] [facility] [place] [address] Assigned PCP 11/14/16 01/22/[address] [facility] [address] [place] [address] Dinkey Engine Mechanic Dietitian, Registered 07/25/19 Katiana Read MD [address] [address] Assigned Endocrinology Provider 05/02/20 08/01/21 Roshni Nascimento RN Personal Advocate & Liaison (PAL) Family Medicine 08/18/20 Kiet Swain MD [address] [place] [address] [address] [place] [address] Referring Physician Psychiatry 09/19/20 Winsome Pike APRN RADIOLOGY INTERVENTIONAL PHYSICIAN [address] [place] [address] Nurse Practitioner Psychiatry 09/19/20 Tori Hines [facility] [address] [place] [address] Embossing Tool Setter Embossing Tool Setter - Clinical 09/19/20 Miranda Queen [facility] [address] [place] [address] Pharmacist Pharmacist 11/12/20 Winsome Pike APRN RADIOLOGY INTERVENTIONAL PHYSICIAN [address] [place] [address] Assigned Behavioral Health Provider 01/04/21 07/02/22 Marisel Armando MD [address] [place] [address] Gastroenterology 02/05/21 Marisel Armando MD [address] [place] [address] Assigned Gastroenterology Provider 03/08/21 12/24/22 Inderjit Ugalde MD [address] [place] [address] Assigned Surgical Provider 02/15/21 08/20/22 Wesley Barrett MD 420 [facility] 96 [place] [address] Assigned Neuroscience Provider 05/10/21 Charles Jaramillo PA-C [address] [facility] [address] [place] [address] Assigned Musculoskeletal Provider 04/26/21 10/15/22 [facility] [address] [place] [address] Assigned MTM Pharmacist 12/05/21 03/26/22 [place] [address] [place] [address] Assigned PCP 01/23/22 05/14/22 Miranda Queen [facility] [address] [place] [address] Assigned MTM Pharmacist 04/07/22 05/14/22 [place] [address] [place] [address] Assigned PCP 05/15/22 Katiana Read MD [address] 200 [place] [address] Assigned Endocrinology Provider 06/19/22 [place] [address] [place] [address] Assigned Behavioral Health Provider 07/03/22 12/31/22 Deena Garza APRN CNP [address] [place] [place] [address] Assigned Pain Medication Provider 07/19/22 10/29/22 [place] [address] [address] [place] [address] Nurse Practitioner Nurse Practitioner 10/18/22 Elham Stack, [facility] [address] [place], [place] [address] Pharmacist Pharmacist 10/19/22 Emerita Potter, [facility] Clinic Preanalytics Team Lead Embossing Tool Setter - Clinical 10/29/22 11/02/22 [place] [address] [place] [address] Assigned Pain Medication Provider 10/30/22 12/03/22 Michelle Guzman DPM, Podiatry/Foot and Ankle Surgery [address] [place] [address] Assigned Musculoskeletal Provider 10/16/22 04/08/23 [place] [address] [place] [address] Assigned Pain Medication Provider 12/04/22 04/01/23 [place] [address] [address] [address] Nurse Practitioner Nurse Practitioner 01/17/23 01/17/23 Aubrey Jones MD [address] [place] [address] Cardiovascular Disease 03/28/23 Blanquita Morales Dinkey Engine Mechanic Diabetes Education 04/25/23 Aubrey Jones MD [address] [place] [address] Assigned Heart and Vascular Provider 05/07/23 documented as of this encounter
--- OUTSIDE RECORDS SUMMARY | 2023-08-03 10:09 | XMS_ITS | Encounter Summary ---
Author Name Unknown Organization [facility] Address [address] [place] [address] Care Team Providers Care Deck Lid Fitter Name Role Phone Len Adhikari MD Primary Care Provider Jovany Gonzalez MD Unavailable CrissyStaci jeong NP Unavailable [phone] Len Adhikari MD Unavailable Reanna Smith RD Unavailable Roshni Nascimento RN Unavailable Unavailable Kiet Swain MD Unavailable [phone] Winsome Pike APRN HPLC CHEMIST Unavailable [phone] Tori HinesSW Unavailable Miranda Queen [facility] Unavailable Unavailable Winsome Pike APRN HPLC CHEMIST Unavailable [phone] Marisel Armando MD Unavailable Marisel Armando MD Unavailable Inderjit Ugalde MD Unavailable [phone] Wesley Barrett MD Unavailable Charles Jaramillo PA-C Unavailable +[phone] Miranda Queen [facility] Unavailable Unavailable Leeann Rinaldi MD Unavailable Miranda Queen [facility] Unavailable Unavailable Dyan Fuentes MD Primary Care Provider [phone] Dyan Fuentes MD Unavailable + [phone] Katiana Read MD Unavailable +[phone] Meme Singleton PhD Unavailable [phone] Deena Garza CLIENT SERVICES COORDINATOR HPLC CHEMIST Unavailable [phone] Mary Del Cid HOUSEKEEPER SUPERVISOR Unavailable + [phone] Stack[employer]ham [facility] Unavailable +[phone] Emerita Potter [facility] Unavailable [phone] Mary Del Cid NP Unavailable + [phone] Michelle Guzman DPM, Podiatry /Foot and Ankle Surgery Unavailable Dyan Fuentes MD Unavailable + [phone] Mary Del Cid NP Unavailable + [phone] Aubrey Jones MD Unavailable + [phone] Blanquiat Morales Unavailable Unavailable Aubrey Jones MD Unavailable + [phone] Encounter Details Date Type Department Care Team (Late st Contact Info) Description 08/26/2021 [facility] [address] [address] [facility] Social History Tobacco Use Types Packs/Day Years [...] often do you attend chur ch or mormonism services? Never 09/20/2020 Do you belong to any clubs o r organizations such as judaism groups, unions, fraternal or athletic groups, or [...] PHQ-2 Score 2 02/02/2021 [facility] Occupat ional [facility] - Occupational Stress Questionnaire [...] slept in a snf (including now)? No 09/20/2020 Education Answer Date [...] have Coronavirus / COVID-19? No / Unsure 08/12/2021 1:26 PM DIPPING MACHINE OPERATOR documented as of this encounter Plan of Treatment Upcoming Encounters Date Type Department Care Team (Late st Contact Info) Description 08/18/2023 3:00 PM DIPPING MACHINE OPERATOR Office [facility] [address] [facility] [address] [place] [address] Katiana Read MD [address] [place] [address] documented as of this encounter Visit Diagnoses Not on filedocumented in this encounter Additional Health Concerns Infection Onset Date Last Indicated Resolved Time Rule Out C-difficile 10/14/2022 10/15/2022 023 12:33 AM CDT Rule Out C-difficile 10/15/2022 10/15/2022 023 5:39 AM CDT C-difficile 10/15/2022 10/27/202211/2611/26/2022 11:4 0 PM CDT Rule Out C-difficile 10/26/2022 10/27/2022 023 2:14 AM CDT Rule Out C-difficile 12/05/2022 12/05/2022 023 9:44 AM CDT Assessment Noted Time PHQ-9 Depression Total Score: 12 021 4:21 PM CDT documented as of this encounter Care Teams Deck Lid Fitter Relationship Specialty Start Date End Date Len Adhikrai MD PCP - General Family Practice 11/08/16 05/09/22 [place] [address] [place] [address] PCP - General Family Medicine 05/18/22 Jovany Gonzalez MD [facility] 6600 [facility] 605 [place] [address] Orthopedics 02/15/17 Staci Woodward HOUSEKEEPER SUPERVISOR [place] [address] [place] [address] Nurse Practitioner Nurse Practitioner Psych/Mental Health 05/10/17 [place] [address] [facility] [place] [address] Assigned PCP 11/14/16 01/22/[address] [place] [address] [place] [address] Kitchen Operator Dietitian, Registered 07/25/19 Roshni Nascimento, RN Personal Advocate & Liaison (PAL) Family Medicine 08/18/20 Kiet Swani MD 2450 [facility] [address] [place], [place] [address] Referring Physician Psychiatry 09/19/20 Winsome Pike APRN HPLC CHEMIST [address] [place] [address] 827944 Nurse Practitioner Psychiatry 09/19/20 Tori Hines, [facility] Pending sale to [facility] [place], [place] 226914 Rollway Man Rollway Man - Clinical 09/19/20 Miranda Queen [facility] [address] [place] [address] Pharmacist Pharmacist 11/12/20 Winsome Pike APRN HPLC CHEMIST [address] [place] [address] [id number] Assigned Behavioral Health Provider 01/04/21 07/02/22 Marisel Armando MD [address] [place] [address] 315355 Gastroenterology 02/05/21 Marisel Armando MD [address] [place] [address] Assigned Gastroenterology Provider 03/08/21 12/24/22 Inderjit Ugalde MD [address] [address] Assigned Surgical Provider 02/15/21 08/20/22 Wesley Barrett MD [address] [place] [address] Assigned Neuroscience Provider 05/10/21 Charles Jaramillo PA-C 6545 [facility] 450 [place] [address] Assigned Musculoskeletal Provider 04/26/21 10/15/22 Miranda Queen [facility] [address] [place] [address] Assigned MTM Pharmacist 12/05/21 03/26/22 [place] [address] [place] [address] Assigned PCP 01/23/22 05/14/22 Miranda Queen [facility] [address] [place] [address] Assigned MTM Pharmacist 04/07/22 05/14/22 [place] [address] [place] [address] Assigned PCP 05/15/22 Katiana Read MD [address] [place] [address] 200 [place] [address] Assigned Endocrinology Provider 06/19/22 [place] [address] [place] [address] Assigned Behavioral Health Provider 07/03/22 12/31/22 Deena Garza APRN HPLC CHEMIST [address] [place] [address] Assigned Pain Medication Provider 07/19/22 10/29/22 [place] [address] [address] [place] [address] Nurse Practitioner Nurse Practitioner 10/18/22 Elham Stack, [facility] [address] [place] [address] Pharmacist Pharmacist 10/19/22 Emerita Potter, [facility] Clinic Electrical Accessories Assembler Rollway Man - Clinical 10/29/22 11/02/22 [place] [address] [address] [place] [address] Assigned Pain Medication Provider 10/30/22 12/03/22 Michelle Guzman, DPM, Podiatry/Foot and Ankle Surgery [address] [place] [address] Assigned Musculoskeletal Provider 10/16/22 04/08/23 [place] [address] [place] [address] Assigned Pain Medication Provider 12/04/22 04/01/23 [place] [address] [address] [place] [address] Nurse Practitioner Nurse Practitioner 01/17/23 01/17/23 Aubrey Jones MD [address] [place] [address] Cardiovascular Disease 03/28/23 Blanquita Morales Kitchen Operator Diabetes Education 04/25/23 Aubrey Jones MD [address] [place] [address] Assigned Heart and Vascular Provider 05/07/23 documented as of this encounter
--- OUTSIDE RECORDS SUMMARY | 2023-08-03 10:09 | XMS_ITS | Encounter Summary ---
Author Name Unknown Organization [place] Address [address] [place] [address]. [place] [address] Care Team Providers Care Flanging Operator Name Role Phone Len Adhikari MD Primary Care Provider Jovany Gonzalez MD Unavailable [phone] CrissyStaci jeong ARCADE ATTENDANT Unavailable [phone] Len Adhikari MD Unavailable Reanna Smith [address] Unavailable [phone] Katiana Read MD Unavailable [phone] Roshni Nascimento RN Unavailable Unavailable Kiet Swain MD Unavailable [phone] Winsome Pike APRN FIELD CASHIER Unavailable [phone] Tori HinesSW Unavailable Miranda Queen [facility] Unavailable Unavailable Winsome Pike APRN FIELD CASHIER Unavailable [phone] Marisel Armando MD Unavailable Marisel Armando MD Unavailable Inderjit Ugalde MD Unavailable [phone] Wesley Barrett MD Unavailable [phone] Charles Jaramillo PA-C Unavailable +[phone] Miranda Queen [facility] Unavailable Unavailable Leeann Rinaldi MD Unavailable Miranda Queen [facility] Unavailable Unavailable Dyan Fuentes MD Primary Care Provider [phone] Dyan Fuentes MD Unavailable +[phone] Katiana Read MD Unavailable +[phone] Meme Singleton PhD Unavailable +[phone] Deena Garza ENTRY LEVEL SALES REPRESENTATIVE FIELD CASHIER Unavailable +[phone] Mary Del Cid ARCADE ATTENDANT Unavailable +5400 Elham Stack [facility] Unavailable [phone] Emerita Potter [facility] Unavailable [phone] Mary Del Cid ARCADE ATTENDANT Unavailable +[phone] Michelle Guzman DPM, Podiatry /Foot and Ankle Surgery Unavailable Dyan Fuentes MD Unavailable +[phone] Mary Del Cid NP Unavailable +[phone] Aubery Jones MD Unavailable [phone] Blanquita Morales Unavailable Unavailable Aubrey Jones MD Unavailable +[phone] Encounter Details Date Type Department Care Team (Late st Contact Info) Description 07/10/2021 Documentation Only INTERFACED REPORT Unknown, Provider Social History Tobacco Use Types Packs/Day Years [...] Never 09/20/2020 How often [facility] you attend [facility] or hoahaoism services? Never 09/20/2020 Do you belong to [...] Answer Date Recorded PHQ-2 Score 2 02/02/2021 [facility] of Occupat ional Health - [...] place to sleep or slept in a correction (including now)? No 09/20/2020 Education Answer Date [...] have Coronavirus / COVID-19? No / Unsure 07/09/2021 5:55 PM SALES SERVICE REPRESENTATIVE documented as of this encounter Plan of Treatment Upcoming Encounters Date Type Department Care Team (Late st Contact Info) Description 08/18/2023 3:00 PM SALES SERVICE REPRESENTATIVE Office Visit [facility] [address] [facility] [address] [place] [address] Katiana Read MD [address] [address] [place] [address] documented as of this encounter Visit Diagnoses [...] documented as of this encounter Care Teams Flanging Operator Relationship Specialty Start Date End Date Len Adhikari MD PCP - General Family Practice 11/08/16 05/09/22 [place] [address] [place] [address] PCP - General Family Medicine 05/18/22 Jovany Gonzalez MD [facility] 6600 [facility] 605 [place] [address] Orthopedics 02/15/17 Staci Woodward ARCADE ATTENDANT [place] [address] [place] [address] Nurse Practitioner Nurse Practitioner Psych/Mental Health 05/10/17 [place] [address] [facility] [place] [address] Assigned PCP 11/14/16 01/22/[address] [address] Photograph Enlarger Dietitian, Registered 07/25/19 Katiana Read MD [address] [place] [address] 200 [place] [address] Assigned Endocrinology Provider 05/02/20 08/01/21 Roshni Nascimento, RN Personal Advocate & Liaison (PAL) Family Medicine 08/18/20 Kiet Swain MD [facility] [address] [place], [place] [address] Referring Physician Psychiatry 09/19/20 Winsome Pike APRN FIELD CASHIER [address] [place] [address] 545674 Nurse Practitioner Psychiatry 09/19/20 Tori Hines [facility] [address] [place] [address] [id number] Ekg Tech Ekg Tech - Clinical 09/19/20 Miranda Queen [facility] [address] [place] [address] Pharmacist Pharmacist 11/12/20 Winsome Pike APRN FIELD CASHIER [address] [place] [address] Assigned Behavioral Health Provider 01/04/21 07/02/22 Marisel Armadno MD [address] [place] [address] Gastroenterology 02/05/21 Marisel Armando MD [address] [place] [address] Assigned Gastroenterology Provider 03/08/21 12/24/22 Inderjit Ugalde MD [address] [facility] 300 [place], [place] 57[address] Assigned Surgical Provider 02/15/21 08/20/22 Wesley Barrett MD 420 [facility] 96 [place] [address] Assigned Neuroscience Provider 05/10/21 Charles Jaramillo PA-C 6545 [facility] 450 [place] [address] Assigned Musculoskeletal Provider 04/26/21 10/15/22 Miranda Queen [facility] [address] [place] [address] Assigned MTM Pharmacist 12/05/21 03/26/22 [place] [address] [place] [address] Assigned PCP 01/23/22 05/14/22 Miranda Queen [facility] [address] [place] [address] Assigned MTM Pharmacist 04/07/22 05/14/22 [place] [address] [place] [address] Assigned PCP 05/15/22 Katiana Read MD [address] [place] [address] 200 [place] [address] Assigned Endocrinology Provider 06/19/22 Meme Singleton, PhD [address] [place] [address] Assigned Behavioral Health Provider 07/03/22 12/31/22 Deena Garza APRN FIELD CASHIER [address] [place] [address] Assigned Pain Medication Provider 07/19/22 10/29/22 [place] [address] [place] [address] Nurse Practitioner Nurse Practitioner 10/18/22 Elham Stack, [facility] [address] [place] [address] Pharmacist Pharmacist 10/19/22 Emerita Potter, [facility] Clinic Intake Specialist Ekg Tech - Clinical 10/29/22 11/02/22 [place] [address] [place] [address] Assigned Pain Medication Provider 10/30/22 12/03/22 Michelle Guzman DPM, Podiatry/Foot and Ankle Surgery [address] [place] [address] Assigned Musculoskeletal Provider 10/16/22 04/08/23 [place] [address] [place] [address] Assigned Pain Medication Provider 12/04/22 04/01/23 [place] [address] [address] [place] [address] Nurse Practitioner Nurse Practitioner 01/17/23 01/17/23 Aubrey Jones MD [address] [place] [address] Cardiovascular Disease 03/28/23 Blanquita Morales Photograph Enlarger Diabetes Education 04/25/23 Aubrey Jones MD [address] [place] [address] Assigned Heart and Vascular Provider 05/07/23 documented as of this encounter
--- OUTSIDE RECORDS SUMMARY | 2023-08-03 10:09 | XMS_ITS | Encounter Summary ---
Author Name Unknown Organization [facility] Address [address] [place] [address]. [place] [address] Care Team Providers Care Instructor Kindergarten Name Role Phone Len Adhikari MD Primary Care Provider Jovany Gonzalez MD Unavailable CrissyStaci jeong INFANTRYMAN Unavailable [phone] Len Adhikari MD Unavailable Reanna Smith RD Unavailable Katiana Read MD Unavailable [phone] Roshni Nascimento RN Unavailable Unavailable Kiet Swain MD Unavailable Winsome Pike APRN SECURITY ASSOCIATE Unavailable [phone] Tori HinesSW Unavailable Miranda Queen [facility] Unavailable Unavailable Winsome Piek APRN SECURITY ASSOCIATE Unavailable [phone] Marisel Armando MD Unavailable Marisel Armando MD Unavailable Inderjit Ugalde MD Unavailable Wesley Barrett MD Unavailable [phone] Charles Jaramillo PA-C Unavailable [phone] Miranda Queen [facility] Unavailable Unavailable Leeann Rinaldi MD Unavailable Miranda Queen [facility] Unavailable Unavailable Dyan Fuentes MD Primary Care Provider [phone] Dyan Fuentes MD Unavailable +[phone] Katiana Read MD Unavailable +[phone] Meme Singleton PhD Unavailable +[phone] Deena Garza APRN SECURITY ASSOCIATE Unavailable [phone] Mary Del Cid INFANTRYMAN Unavailable + [phone] Elham Stack [facility] Unavailable [phone] Abbey Emerita M [facility] Unavailable +[phone] Mary Del Cid INFANTRYMAN Unavailable + [phone] Michelle Guzman DPM, Podiatry /Foot and Ankle Surgery Unavailable Dyan Fuentes MD Unavailable +[phone] Mary Del Cid NP Unavailable + [phone] Aubrey Jones MD Unavailable [phone] Blanquita Morales Unavailable Unavailable Aubrey Jones MD Unavailable +[phone] Reason for Visit * Reason Onset Date Comments Refill Request 07/16/2021 methocarbamol (R OBAXIN) 500 MG tablet Encounter Details Date Type Department Care Team (Late st Contact Info) Description 07/16/2021 Refill [facility] [place] [id number] [place] [address] [address] [place], [place] [id number] Deena Garza APRN SECURITY ASSOCIATE [address] [place] [id number] Refill Request (methocarbamol (ROBAXIN) 500 MG tablet) Social History Tobacco Use Types Packs/Day Years [...] 09/20/2020 How often do you attend chur or tenriism services? Never 09/20/2020 Do you belong to [...] Date Recorded PHQ-2 Score 2 02/02/2021 [facility] of Occupat ional [...] in a senior living (including now)? No 09/20/2020 Education Answer Date [...] COVID-19? No / Unsure 07/17/2021 4:05 PM GOLF SUPERINTENDENT documented as of this encounter Miscellaneous Notes * Telephone Encounter - Sergio Juarez - 07/16/2021 10:16 AM CST Received fax request from [facility]/pharmacy #[id number] - [place], [place] - [address] [facility] [address] [facility] [id number] requesting refill(s) for methocarbamol (ROBAXIN) 500 MG tablet Last refilled on 06/15/21 Pt last seen on 07/07/21 Next appt scheduled for : none Will facilitate refill. SUPERINTENDENT documented in this encounter Plan of Treatment Upcoming Encounters Date Type Department Care Team (Late st Contact Info) Description 08/18/2023 3:00 PM GOLF SUPERINTENDENT Office Visit [facility] [address] [place] [address] Katiana Read MD [address] [place] [address] documented as of this encounter Visit Diagnoses Diagnosis Muscle spasm Spasm of muscle documented in [...] documented as of this encounter Care Teams Instructor Kindergarten Relationship Specialty Start Date End Date Len Adhikari MD PCP - General Family Practice 11/08/16 05/09/22 [place] [address] [place] [address] PCP - General Family Medicine 05/18/22 Jovany Gonzalez MD [facility] [address] [facility] 605 [place], [place] 0[address] Orthopedics 02/15/17 Staci Woodward INFANTRYMAN [facility] [address] [place] [address] Nurse Practitioner Nurse Practitioner Psych/Mental Health 05/10/17 [place] [address] [facility] [place] [address] Assigned PCP 11/14/16 01/22/[address] [facility] [address] [place], [place] 0[address] Atlassian Administrator Dietitian, Registered 07/25/19 Katiana Read MD [address] [facility] 200 [place], [place] 704760 Assigned Endocrinology Provider 05/02/20 08/01/21 Roshni Nascimento RN Personal Advocate & Liaison (PAL) Family Medicine 08/18/20 Kiet Swain MD [address] [place], [place] [address] [place], [place] [phone] Referring Physician Psychiatry 09/19/20 Winsome Pike APRN SECURITY ASSOCIATE [address] [place] [place] [address] Nurse Practitioner Psychiatry 09/19/20 Tori Hines, [facility] [place] [address] Pellet Machine Operator Pellet Machine Operator - Clinical 09/19/20 Miranda Queen [facility] [address] [place] [address] Pharmacist Pharmacist 11/12/20 Winsome Pike APRN CNP [address] [place] [address] 884854 Assigned Behavioral Health Provider 01/04/21 07/02/22 Marisel Armando MD [address] [place] [address] Gastroenterology 02/05/21 Marisel Armando MD [address] [place] [address] 914735 Assigned Gastroenterology Provider 03/08/21 12/24/22 Inderjit Ugalde MD [address] [facility] 300 [place], [place] 0[address]87 Assigned Surgical Provider 02/15/21 08/20/22 Wesley Barrett MD 420 [facility] 96 [place], [place] 85[address] Assigned Neuroscience Provider 05/10/21 Charles Jaramillo PA-C [address] [address] Assigned Musculoskeletal Provider 04/26/21 10/15/22 Miranda Queen [facility] [address] [facility] [place] [address] Assigned MTM Pharmacist 12/05/21 03/26/22 [place] [address] [place] [address] Assigned PCP 01/23/22 05/14/22 Miranda Queen [facility] [address] [facility] [place] [address] Assigned MTM Pharmacist 04/07/22 05/14/22 [place] [address] [address] [facility] [place] [address] Assigned PCP 05/15/22 Katiana Read MD [address] [place] [address] Assigned Endocrinology Provider 06/19/22 [place] [address] [place] [address] Assigned Behavioral Health Provider 07/03/22 12/31/22 Deena Garza APRN SECURITY ASSOCIATE [address] [place] [address] Assigned Pain Medication Provider 07/19/22 10/29/22 Mary Del Cid, RAFAEL [address] [place] [address] Nurse Practitioner Nurse Practitioner 10/18/22 Elham Stack, [facility] [address] [facility] [place] [place] [address] Pharmacist Pharmacist 10/19/22 Emerita Potter, [facility] Clinic Merchandise Complaint Adjuster Pellet Machine Operator - Clinical 10/29/22 11/02/22 [place] [address] [place] [address] Assigned Pain Medication Provider 10/30/22 12/03/22 Michelle Guzman, DPM, Podiatry/Foot and Ankle Surgery [address] [place] [address] Assigned Musculoskeletal Provider 10/16/22 04/08/23 [place] [address] [place] [address] Assigned Pain Medication Provider 12/04/22 04/01/23 [place] [address] [place] [address] Nurse Practitioner Nurse Practitioner 01/17/23 01/17/23 Aubrey Jones MD [address] [place] [address] Cardiovascular Disease 03/28/23 Blanquita Morales Atlassian Administrator Diabetes Education 04/25/23 Aubrey Jones MD [address] [place] [address] Assigned Heart and Vascular Provider 05/07/23 documented as of this encounter
--- OUTSIDE RECORDS SUMMARY | 2023-08-03 10:10 | XMS_ITS | Encounter Summary ---
Author Name Unknown Organization [facility] Address [address] [place] [address]. [place] [address] Care Team Providers Care Glass Breaker Name Role Phone Len Adhikari MD Primary Care Provider Jovany Gonzalez MD Unavailable CrissyStaci jeong HOOK AND EYE MACHINE OPERATOR Unavailable Len Adhikari MD Unavailable Reanna Smith RD Unavailable [phone] Katiana Read MD Unavailable [phone] Roshni Nascimento RN Unavailable Unavailable Kiet Swain MD Unavailable [phone] Winsome Pike APRN DENTAL TECHNICIAN APPRENTICE Unavailable [phone] Tori HinesSW Unavailable Miranda Queen [facility] Unavailable Unavailable Winsome Pike APRN DENTAL TECHNICIAN APPRENTICE Unavailable [phone] Marisel Armando MD Unavailable Marisel Armando MD Unavailable Inderjit Ugalde MD Unavailable [phone] Wesley Barrett MD Unavailable [phone] Charles Jaramillo PA-C Unavailable +[phone] Miranda Queen [facility] Unavailable Unavailable Leeann Rinaldi MD Unavailable Miranda Queen [facility] Unavailable Unavailable Dyan Fuentes MD Primary Care Provider [phone] Dyan Fuentes MD Unavailable +[phone] Katiana Read MD Unavailable [phone] Meme Singleton PhD Unavailable +[phone] Deena Garza CAR FERRY CAPTAIN DENTAL TECHNICIAN APPRENTICE Unavailable [phone] Mary Del Cid HOOK AND EYE MACHINE OPERATOR Unavailable + [phone] Elham Stack [facility] Unavailable +[phone] Abbey Emerita Alisha [facility] Unavailable [phone] Mary Del Cid HOOK AND EYE MACHINE OPERATOR Unavailable + [phone] Michelle Guzman DPM, Podiatry /Foot and Ankle Surgery Unavailable Dyan Fuentes MD Unavailable [phone] Mary Del Cid NP Unavailable + [phone] Aubrey Jones MD Unavailable [phone] Blanquita Morales Unavailable Unavailable Aubrey Jones MD Unavailable +[phone] Reason for Visit * Reason Comments Medication Refill Encounter Details Date Type Department Care Team (Late st Contact Info) Description 05/26/2021 [facility] [address] [place] [address] [place] [address] [place] [address] Medication Refill Social History Tobacco [...] often do you attend chur ch or anabaptist services? Never 09/20/2020 Do you belong to [...] Answer Date Recorded PHQ-2 Score 2 02/02/2021 [facility] Answer Date [...] slept in a detention (including now)? No 09/20/2020 Education Answer Date [...] have Coronavirus / COVID-19? No / Unsure 05/28/2021 3:03 PM ORGAN ASSEMBLER documented as of this encounter Miscellaneous Notes * Telephone Encounter - Len Adhikari MD - 05/28/2021 4:13 PM CST Schedule AWV with me in 6 months. N ASSEMBLER * Telephone Encounter - Jessica Rahman RN - 05/28/2021 9:18 AM CST Images from the original note were not included. Routing refill request to provider for review/approval because: Serotonin-Norepinephrine Reuptake Inhibitors Failed 05/27/2021 03:06 PM Protocol Details Normal serum creatinine on file in past 12 months Creatinine Date Value Ref Range Status 05/11/2021 1.18 (H) 0.52 - 1.04 mg/dL Final 01/18/2021 0.74 0.52 - 1.04 mg/dL Final N ASSEMBLER * Telephone Encounter - Jeet Del Rio RN - 05/28/2021 9:18 AM CST Routing refill request to provider for review/approval because: Labs out of range: creatinine Creatinine Date Value Ref Range Status 05/11/2021 1.18 (H) 0.52 - 1.04 mg/dL Final 01/18/2021 0.74 0.52 - 1.04 mg/dL Final Jeet [place] RN N ASSEMBLER documented in this encounter Plan of Treatment Upcoming Encounters Date Type Department Care Team (Late st Contact Info) Description 08/18/2023 3:00 PM ORGAN ASSEMBLER Office Visit [facility] [address] [facility] [address] [place] [address] Katiana Read MD [address] [address] [place] [address] documented as of this encounter Visit Diagnoses Diagnosis Anxiety Anxiety state, unspecified Hypertriglyceridemia Pure hyperglyceridemia Hyperlipidemia LDL goal <100 Other and unspecified [...] as of this encounter Care Teams Glass Breaker Relationship Specialty Start Date End Date Len Adhikari MD PCP - General Family Practice 11/08/16 05/09/22 [place] [address] [place] [address] PCP - General Family Medicine 05/18/22 Jovany Gonzalez MD [facility] 6600 [facility] 605 [place] [address] Orthopedics 02/15/17 Staci Woodward NP [facility] [address] [place], [place] [address] Nurse Practitioner Nurse Practitioner Psych/Mental Health 05/10/17 [place] [address] [place] [address] Assigned PCP 11/14/16 01/22/[address] [facility] [address] [place] [address] Body Die Maker Dietitian, Registered 07/25/19 Katiana Read MD [address] [facility] 200 [place] [address] Assigned Endocrinology Provider 05/02/20 08/01/21 Roshni Nascimento, RN Personal Advocate & Liaison (PAL) Family Medicine 08/18/20 Kiet Swain MD [address] [place] [address] [address] [place] [address] Referring Physician Psychiatry 09/19/20 Winsome Pike APRN DENTAL TECHNICIAN APPRENTICE [address] [place] [address] [phone] Nurse Practitioner Psychiatry 09/19/20 Tori Hines [facility] [address] [place] [address] 864464 Cellar Packer Cellar Packer - Clinical 09/19/20 Miranda Queen [facility] [address] [place] [address] Pharmacist Pharmacist 11/12/20 Winsome Pike APRN DENTAL TECHNICIAN APPRENTICE [address] [place] [place] [address] [phone] Assigned Behavioral Health Provider 01/04/21 07/02/22 Marisel Armando MD [address] [place] [address] Gastroenterology 02/05/21 Marisel Armando MD [address] [place] [address] Assigned Gastroenterology Provider 03/08/21 12/24/22 Inderjit Ugalde MD [address] [facility] 300 [place] [address] Assigned Surgical Provider 02/15/21 08/20/22 Wesley Barrett MD [address] [facility] 96 [place] [address] Assigned Neuroscience Provider 05/10/21 Charles Jaramillo PA-C 6545 [facility] 450 [place] [address] Assigned Musculoskeletal Provider 04/26/21 10/15/22 [facility] [address] [place] [address] Assigned MTM Pharmacist 12/05/21 03/26/22 [place] [address] [place] [address] Assigned PCP 01/23/22 05/14/22 [facility] [address] [place] [address] Assigned MTM Pharmacist 04/07/22 05/14/22 [place] [address] [place] [address] Assigned PCP 05/15/22 Katiana Read MD [address] [place] [address] 200 [place] [address] Assigned Endocrinology Provider 06/19/22 [place] [address] [place] [id number] Assigned Behavioral Health Provider 07/03/22 12/31/22 Deena Garza APRN DENTAL TECHNICIAN APPRENTICE [address] [place] 0[address]67 Assigned Pain Medication Provider 07/19/22 10/29/22 [place] [address] [place] [address] Nurse Practitioner Nurse Practitioner 10/18/22 Elham Stack, [facility] [address] [place] [address] Pharmacist Pharmacist 10/19/22 Emerita Potter, [facility] Clinic Garage Helper Cellar Packer - Clinical 10/29/22 11/02/22 [place] [address] [place] [address] Assigned Pain Medication Provider 10/30/22 12/03/22 Michelle Guzman, DPM, Podiatry/Foot and Ankle Surgery [address] [place] [address] Assigned Musculoskeletal Provider 10/16/22 04/08/23 [place] [address] [place] [address] Assigned Pain Medication Provider 12/04/22 04/01/23 [place] [address] [place] [address] Nurse Practitioner Nurse Practitioner 01/17/23 01/17/23 Aubrey Jones MD [address] [place] [address] Cardiovascular Disease 03/28/23 Blanquita Morales Body Die Maker Diabetes Education 04/25/23 Aubrey Jones MD [address] [place] [address] Assigned Heart and Vascular Provider 05/07/23 documented as of this encounter
--- OUTSIDE RECORDS SUMMARY | 2023-08-03 10:10 | XMS_ITS | Encounter Summary ---
Author Name Unknown Organization [facility] Address [address] [place] [address]. [place] [address] Care Team Providers Care Policy Value Calculator Name Role Phone Len Adhikari MD Primary Care Provider Jovany Gonzalez MD Unavailable [phone] CrissyStaci jeong FOOD CHEMIST Unavailable [phone] Len Adhikari MD Unavailable [phone] Unavailable Katiana Read MD Unavailable [phone] Roshni Nascimento RN Unavailable Unavailable Kiet Swain MD Unavailable [phone] Winsome Pike APRN VERTICAL BORER Unavailable [phone] Tori HinesSW Unavailable Miranda Queen [facility] Unavailable Unavailable Winsome Pike APRN VERTICAL BORER Unavailable [phone] Marisel Armando MD Unavailable Marisel Armando MD Unavailable Inderjit Ugalde MD Unavailable [phone] Wesley Barrett MD Unavailable [phone] Charles Jaramillo PA-C Unavailable +[phone] Miranda Queen [facility] Unavailable Unavailable Leeann Rinaldi MD Unavailable Miranda Queen [facility] Unavailable Unavailable Dyan Fuentes MD Primary Care Provider [phone] Dyan Fuentes MD Unavailable +[phone] Katiana Read MD Unavailable [phone] Meme Singleton PhD Unavailable +[phone] Deena Garza BOILER ERECTOR VERTICAL BORER Unavailable +[phone] Mary Del Cid FOOD CHEMIST Unavailable +5400 Elham Stack [facility] Unavailable [phone] Emerita Potter [facility] Unavailable [phone] Mary Del Cid FOOD CHEMIST Unavailable +[phone] Michelle Guzman DPM, Podiatry /Foot and Ankle Surgery Unavailable Dyan Fuentes MD Unavailable [phone] Mary Del Cid NP Unavailable +[phone] Aubrey Jones MD Unavailable [phone] Blanquita Morales Unavailable Unavailable Aubrey Jones MD Unavailable [phone] Encounter Details Date Type Department Care Team (Late st Contact Info) Description 05/01/2021 Documentation Only INTERFACED REPORT Unknown, Provider Social History Tobacco Use Types Packs/Day Years Used Date Smoking Tobacco: Every Day Cigarettes 0.5 40 Smokeless Tobacco: Never Alcohol Use Standard Drinks/Week [...] Never 09/20/2020 How often do you attend [facility] or moravian services? Never 09/20/2020 Do you belong to any clubs o r organizations such as congregational groups, unions, fraternal or athletic groups, or [...] Answer Date Recorded PHQ-2 Score 2 02/02/2021 [facility] of Occupat [...] slept in a fpc (including now)? No 09/20/2020 Education Answer Date [...] have Coronavirus / COVID-19? No / Unsure 04/29/2021 11:18 AM CDT documented as of this encounter Plan of Treatment Upcoming Encounters Date Type Department Care Team (Late st Contact Info) Description 08/18/2023 3:00 PM LEAD CARGOMAN Office Visit [facility] [address] [facility] [address] [place] [address] Katiana Read MD [address] 200 [place] [address] documented as of this encounter [...] documented as of this encounter Care Teams Policy Value Calculator Relationship Specialty Start Date End Date Len Adhikari MD PCP - General Family Practice 11/08/16 05/09/22 [place] [address] [place] [address] PCP - General Family Medicine 05/18/22 Jovany Gonzalez MD [facility] 6600 [facility] 605 [place] [address] Orthopedics 02/15/17 Staci Woodward NP [place] [address] [address] [place], [place] 294667 Nurse Practitioner Nurse Practitioner Psych/Mental Health 05/10/17 [place] [address] [facility] [place] [address] Assigned PCP 11/14/16 01/22/[address] [facility] [address] [place] [address] Customs Investigator Dietitian, Registered 07/25/19 Katiana Read MD [address] [place] [address] 200 [place] [address] Assigned Endocrinology Provider 05/02/20 08/01/21 Roshni Nascimento, RN Personal Advocate & Liaison (PAL) Family Medicine 08/18/20 Kiet Swain MD [facility] [address] [place], [place] 450[address] Referring Physician Psychiatry 09/19/20 Winsome Pike APRN VERTICAL BORER [address] [place] [address] [phone] Nurse Practitioner Psychiatry 09/19/20 Tori Hines, [facility] [address] [place] [address] [phone] Photo Printer Photo Printer - Clinical 09/19/20 Miranda Queen [facility] [address] [place] [address] Pharmacist Pharmacist 11/12/20 Winsome Pike APRN VERTICAL BORER [address] [place] [address] Assigned Behavioral Health Provider 01/04/21 07/02/22 Marisel Armando MD [address] [place] [address] Gastroenterology 02/05/21 Marisel Armando MD [address] [place] [address] Assigned Gastroenterology Provider 03/08/21 12/24/22 Inderjit Ugalde MD [address] [facility] 300 [place], [place] 57[address] Assigned Surgical Provider 02/15/21 08/20/22 Wesley Barrett MD 420 [facility] 96 [place], [place] [address] Assigned Neuroscience Provider 05/10/21 Charles Jaramillo PA-C 6545 [facility] 450 [place] [address] Assigned Musculoskeletal Provider 04/26/21 10/15/22 [facility] [address] [place] [address] Assigned MTM Pharmacist 12/05/21 03/26/22 [place] [address] [place] [address] Assigned PCP 01/23/22 05/14/22 [facility] [address] [place] [address] Assigned MTM Pharmacist 04/07/22 05/14/22 [place] [address] [place] [address] Assigned PCP 05/15/22 Katiana Read MD [address] [place] [address] 200 [place] [address] Assigned Endocrinology Provider 06/19/22 [place] [address] [place] [address] Assigned Behavioral Health Provider 07/03/22 12/31/22 Deena Garza, BOILER ERECTOR VERTICAL BORER [address] [place] [address] Assigned Pain Medication Provider 07/19/22 10/29/22 [place] [address] [place] [address] Nurse Practitioner Nurse Practitioner 10/18/22 Elham Stack, [facility] [address] [place] [address] Pharmacist Pharmacist 10/19/22 Emerita Potter, [facility] Clinic Automatic Gluing Machine Operator Photo Printer - Clinical 10/29/22 11/02/22 [place] [address] [place] [address] Assigned Pain Medication Provider 10/30/22 12/03/22 Michelle Guzman DPM, Podiatry/Foot and Ankle Surgery [address] [place] [address] Assigned Musculoskeletal Provider 10/16/22 04/08/23 [place] [address] [place] [address] Assigned Pain Medication Provider 12/04/22 04/01/23 [place] [address] [place] [address] Nurse Practitioner Nurse Practitioner 01/17/23 01/17/23 Aubrey Jones MD [address] [place] [address] Cardiovascular Disease 03/28/23 Blanquita Morales Customs Investigator Diabetes Education 04/25/23 Aubrey Jones MD [address] [place] [address] Assigned Heart and Vascular Provider 05/07/23 documented as of this encounter
--- OUTSIDE RECORDS SUMMARY | 2023-08-03 10:10 | XMS_ITS | Encounter Summary ---
Author Name Unknown Organization [facility] Address [address] [place] [address]. [place] [address] Care Team Providers Care Clinical Sociologist Name Role Phone Len Adhikari MD Primary Care Provider [phone] Jovany Gonzalez MD Unavailable CrissyStaci jeong COOK HOUSE SUPERVISOR Unavailable [phone] Len Adhikari MD Unavailable Reanna Smith RD Unavailable Katiana Read MD Unavailable [phone] Roshni Nascimento RN Unavailable Unavailable Kiet Swain MD Unavailable [phone] Winsome Pkie APRN CENTRAL PROCESSING TECH Unavailable [phone] Tori HinesSW Unavailable Miranda Queen [facility] Unavailable Unavailable Winsome Pike APRN CENTRAL PROCESSING TECH Unavailable [phone] Marisel Armando MD Unavailable Marisel Armando MD Unavailable Inderjit Ugalde MD Unavailable [phone] Wesley Barrett MD Unavailable [phone] Charles Jaramillo PA-C Unavailable +[phone] Miranda Queen [facility] Unavailable Unavailable Leeann Rinaldi MD Unavailable Miranda Queen [facility] Unavailable Unavailable Dyan Fuentes MD Primary Care Provider [phone] Dyan Fuentes MD Unavailable [phone] Katiana Read MD Unavailable [phone] Meme Singleton PhD Unavailable +[phone] Deena Garza APRN CENTRAL PROCESSING TECH Unavailable [phone] Mary Del Cid COOK HOUSE SUPERVISOR Unavailable + [phone] Elham Stack [facility] Unavailable [phone] Abbey Emerita M [facility] Unavailable [phone] Mary Del Cid NP Unavailable + [phone] Michelle uGzman DPM, Podiatry /Foot and Ankle Surgery Unavailable Dyan Fuentes MD Unavailable +[phone] Mary Del Cid NP Unavailable + [phone] Aubrey Jones MD Unavailable [phone] Blanquita Morales Unavailable Unavailable Aubrey Jones MD Unavailable [phone] Reason for Visit * Reason Onset Date Comments Patient/info Update 06/12/2021 Encounter Details Date Type Department Care Team (Late st Contact Info) Description 06/12/2021 Telephone [facility] [place] [id number] [place] [address] [address] [place], [place] [address] Deena Garza, VIDHI CENTRAL PROCESSING TECH [address] [address] [place] [id number] Patient/info Update Social History Tobacco Use Types Packs/Day Years [...] you attend chur ch or episcopal services? Never 09/20/2020 Do you belong to [...] Answer Date Recorded PHQ-2 Score 2 02/02/2021 [employer] [facility] Answer [...] slept in a custodial (including now)? No 09/20/2020 Education Answer Date [...] have Coronavirus / COVID-19? No / Unsure 06/08/2021 6:55 PM STRING LASTER documented as of this encounter Miscellaneous Notes * Telephone Encounter - Deena Garza APRN CNP - 06/12/2021 3:16 PM STRING LASTER Thank you for the update, information noted. Nguyen Garza APRN CNP [facility] Management NG LASTER * Telephone Encounter - Janine Argueta RN - 06/12/2021 2:29 PM STRING LASTER Routing to provider as FYI Call placed and chart reviewed Pt calling to report she was given #24 oxyCODONE (ROXICODONE) 10 MG tablet with sig: Take 1-1.5 tablets (10-15 mg) by mouth every 6 hours as needed for moderate to severe pain - Oral To manage her ongoing acute post-op pain and complications. 8 week follow-up scheduled Pt states she will call refills into Dr Barrett's team and knows to call Pain Management with updates when she receives meds. Janine Raymundo RN Bilingual Counter Sales Retail [facility] NG LASTER * Telephone Encounter - Dawn Deluna - 06/12/2021 1:38 PM CST Reason for call: Other Patient called regarding (reason for call): Additional comments: Pt was discharged from the hospital and some medications (opiods) she would like to inform the provider of. Phone number to reach patient: Home number on file [phone] (home) Can we leave a detailed message on this number? YES Travel screening: Not Applicable Dawn Brito Journeyman Level Acoustic Analyst [facility] NG LASTER documented in this encounter Plan of Treatment Upcoming Encounters Date Type Department Care Team (Late st Contact Info) Description 08/18/2023 3:00 PM STRING LASTER Office Visit [facility] [address] [place] [address] Katiana Read MD [address] [place] [address] documented as of this encounter Visit Diagnoses [...] documented as of this encounter Care Teams Clinical Sociologist Relationship Specialty Start Date End Date Len Adhikari MD PCP - General Family Practice 11/08/16 05/09/22 [place] [address] [place] [address] PCP - General Family Medicine 05/18/22 Jovany Gonzalez MD [facility] [address] [facility] [address] [place], [place] [address] Orthopedics 02/15/17 Staci Woodward COOK HOUSE SUPERVISOR [place] [address] [place], [place] [address] Nurse Practitioner Nurse Practitioner Psych/Mental Health 05/10/17 [place] [address] [facility] [place] [address] Assigned PCP 11/14/16 01/22/[address] [facility] [address] [place] [address] Diamond Grinder Dietitian, Registered 07/25/19 Katiana Read MD [address] [facility] 200 [place] [address] Assigned Endocrinology Provider 05/02/20 08/01/21 Roshni Nascimento, RN Personal Advocate & Liaison (PAL) Family Medicine 08/18/20 Kiet Swain MD [address] [place] [address] [address] [place] [address] Referring Physician Psychiatry 09/19/20 Winsome Pike APRN CENTRAL PROCESSING TECH [address] [place] [address] Nurse Practitioner Psychiatry 09/19/20 Tori Hines [facility] [address] [place] [phone] Production General Manager Road Production - Clinical 09/19/20 Miranda Queen [facility] [address] [place] [address] Pharmacist Pharmacist 11/12/20 Winsome Pike APRN CENTRAL PROCESSING TECH [address] [place] [address] Assigned Behavioral Health Provider 01/04/21 07/02/22 Marisel Armando MD [address] [place] [address] Gastroenterology 02/05/21 Marisel Armando MD [address] [place] [address] Assigned Gastroenterology Provider 03/08/21 12/24/22 Inderjit Ugalde MD [address] [place] [address] Assigned Surgical Provider 02/15/21 08/20/22 Wesley Barrett MD 420 [facility] 96 [place] [address] Assigned Neuroscience Provider 05/10/21 Charles Jaramillo PA-C [address]45 [facility] 450 [place] [address] Assigned Musculoskeletal Provider 04/26/21 10/15/22 Miranda Queen [facility] [address] [place] [address] Assigned MTM Pharmacist 12/05/21 03/26/22 [place] [address] [place] [address] Assigned PCP 01/23/22 05/14/22 Miranda Queen [facility] [address] [place] [address] Assigned MTM Pharmacist 04/07/22 05/14/22 [place] [address] [place] [address] Assigned PCP 05/15/22 Katiana Read MD [address] [facility] 200 [place], [place] [address] Assigned Endocrinology Provider 06/19/22 [place] [address] [place] [address] Assigned Behavioral Health Provider 07/03/22 12/31/22 Deena Garza APRN CENTRAL PROCESSING TECH [address] [address] [place] [address] Assigned Pain Medication Provider 07/19/22 10/29/22 [place] [address] [address] [place] [address] Nurse Practitioner Nurse Practitioner 10/18/22 Elham Stack, [facility] [address] [place], [place] [address] Pharmacist Pharmacist 10/19/22 Emerita Potter, [facility] Clinic Bilingual Counter Sales Retail General Manager Road Production - Clinical 10/29/22 11/02/22 [place] [address] [facility] [place] [address] Assigned Pain Medication Provider 10/30/22 12/03/22 Michelle Guzman DPM, Podiatry/Foot and Ankle Surgery [address] [address] [place] [address] Assigned Musculoskeletal Provider 10/16/22 04/08/23 [place] [address] [place] [address] Assigned Pain Medication Provider 12/04/22 04/01/23 [place] [address] [address] [place] [address] Nurse Practitioner Nurse Practitioner 01/17/23 01/17/23 Aubrey Jones MD [address] [place] [address] Cardiovascular Disease 03/28/23 Blanquita Morales Diamond Grinder Diabetes Education 04/25/23 Aubrey Jones MD [address] [place] [address] Assigned Heart and Vascular Provider 05/07/23 documented as of this encounter
--- OUTSIDE RECORDS SUMMARY | 2023-08-03 10:10 | XMS_ITS | Encounter Summary ---
Author Name Unknown Organization [facility] Address [address] [place] [address]. [place] [address] Care Team Providers Care Tearer Name Role Phone Len Adhikari MD Primary Care Provider [phone] Jovany Gonzalez MD Unavailable CrissyStaci jeong ACCESS NURSE Unavailable [phone] Len Adhikari MD Unavailable [phone] Unavailable [phone] Katiana Read MD Unavailable [phone] Roshni Nascimento RN Unavailable Unavailable Kiet Swain MD Unavailable Winsome Pike APRN ZIPPER CUTTER Unavailable [phone] Tori HinesSW Unavailable Miranda Queen [facility] Unavailable Unavailable Winsome Pike APRN ZIPPER CUTTER Unavailable [phone] Marisel Armando MD Unavailable Marisel Armando MD Unavailable Inderjit Ugalde MD Unavailable Wesley Barrett MD Unavailable [phone] Charles Jaramillo PA-C Unavailable +[phone] Miranda Queen [facility] Unavailable Unavailable Leeann Rinaldi MD Unavailable Miranda Queen [facility] Unavailable Unavailable Dyan Fuentes MD Primary Care Provider [phone] Dyan Fuentes MD Unavailable [phone] Katiana Read MD Unavailable [phone] Meme Singleton PhD Unavailable + Deena Garza BOMB SQUAD COMMANDER ZIPPER CUTTER Unavailable [phone] Mary Del Cid ACCESS NURSE Unavailable +[phone] Elham Stack [facility] Unavailable [phone] Emerita Potter [facility] Unavailable [phone] Mary Del Cid ACCESS NURSE Unavailable +[phone] Michelle Guzman DPM, Podiatry /Foot and Ankle Surgery Unavailable Dyan Fuentes MD Unavailable [phone] Mary Del Cdi NP Unavailable +[phone] Aubrey Jones MD Unavailable [phone] Blanquita Morales Unavailable Unavailable Aubrey Jones MD Unavailable + [phone] Encounter Details Date Type Department Care Team (Late st Contact Info) Description 05/01/2021 [facility] [address] [place] [address] Roshni Nascimento, RN Social History Tobacco [...] you attend chur ch or confucianism services? Never 09/20/2020 Do you belong to [...] Answer Date Recorded PHQ-2 Score 2 02/02/2021 [facility] of Occupat ional Health - Occupational Stress [...] slept in a assisted (including now)? No 09/20/2020 Education Answer Date [...] st Contact Info) Description 08/18/2023 3:00 PM PROJECT MANAGER RETAIL Office Visit [facility] [address] [place] [address] Katiana Read MD [address] [place] [address] documented as of this encounter Visit Diagnoses [...] documented as of this encounter Care Teams Tearer Relationship Specialty Start Date End Date Len Adhikari MD PCP - General Family Practice 11/08/16 05/09/22 [place] [address] [place] [address] PCP - General Family Medicine 05/18/22 Jovany Gonzalez MD [facility] 6600 [facility] 605 [place], [place] [address] Orthopedics 02/15/17 Staci Woodward ACCESS NURSE [place] [address] [place], [place] [address] Nurse Practitioner Nurse Practitioner Psych/Mental Health 05/10/17 [place] [address] [place] [address] Assigned PCP 11/14/16 01/22/[address] [facility] [address] [place] [address] Magazine Filler Dietitian, Registered 07/25/19 Katiana Read MD [address] [facility] 200 [place] [address] Assigned Endocrinology Provider 05/02/20 08/01/21 Roshni Nascimento, RN Personal Advocate & Liaison (PAL) Family Medicine 08/18/20 Kiet Swain MD [address] [place], [place] [address] [place] [address] Referring Physician Psychiatry 09/19/20 Winsome Pike APRN ZIPPER CUTTER [address] [place] [address]274 Nurse Practitioner Psychiatry 09/19/20 Tori Hines [facility] [address] [place] [address] [id number] Separations Scientist Separations Scientist - Clinical 09/19/20 Miranda Queen [facility] [address] [place] [address] Pharmacist Pharmacist 11/12/20 Winsome Pike APRN ZIPPER CUTTER [address] [place] [address] Assigned Behavioral Health Provider 01/04/21 07/02/22 Marisel Armando MD [address] [place] [address] Gastroenterology 02/05/21 Marisel Armando MD [address] [place] [address] Assigned Gastroenterology Provider 03/08/21 12/24/22 Inderjit Ugalde MD [address] [place] [address] Assigned Surgical Provider 02/15/21 08/20/22 Wesley Barrett MD 420 [facility] 96 [place] [address] Assigned Neuroscience Provider 05/10/21 Cahrles Jaramillo PA-C [address] [facility] [address] [facility] 450 [place] [address] Assigned Musculoskeletal Provider 04/26/21 10/15/22 Miranda Queen [facility] [address] [place] [address] Assigned MTM Pharmacist 12/05/21 03/26/22 [place] [address] [place] [address] Assigned PCP 01/23/22 05/14/22 Miranda Queen [facility] [address] [place] [address] Assigned MTM Pharmacist 04/07/22 05/14/22 [place] [address] [place] [address] Assigned PCP 05/15/22 Katiana Read MD [address] 200 [place], [place] [address] Assigned Endocrinology Provider 06/19/22 Meme Singleton[place] PhD [address] [place] [address] Assigned Behavioral Health Provider 07/03/22 12/31/22 Deena Garza APRN ZIPPER CUTTER [address] [facility] [place] [address] Assigned Pain Medication Provider 07/19/22 10/29/22 [place] [address] [facility] J[place] [address] Nurse Practitioner Nurse Practitioner 10/18/22 Elham Stack, [facility] [address] [place], [place] [address] Pharmacist Pharmacist 10/19/22 Emerita Potter, [facility] Clinic Therapy Manager Separations Scientist - Clinical 10/29/22 11/02/22 [place] [address] [facility] JIAN MA[place] [address] Assigned Pain Medication Provider 10/30/22 12/03/22 Michelle Guzman DPM, Podiatry/Foot and Ankle Surgery [address] [facility] [place] J[place] BRUN[place] [address] Assigned Musculoskeletal Provider 10/16/22 04/08/23 [place] [address] [place] [address] Assigned Pain Medication Provider 12/04/22 04/01/23 [place] [address] [place] [address] Nurse Practitioner Nurse Practitioner 01/17/23 01/17/23 Aubrey Jones MD [address] [place] [address] Cardiovascular Disease 03/28/23 Blanquita Morales Magazine Filler Diabetes Education 04/25/23 Aubrey Jones MD [address] [place] [address] Assigned Heart and Vascular Provider 05/07/23 documented as of this encounter
--- OUTSIDE RECORDS SUMMARY | 2023-08-03 10:10 | XMS_ITS | Encounter Summary ---
Author Name Unknown Organization [facility] Address [address] [place] [address]. [place] [address] Care Team Providers Care Laminating Machine Feeder Name Role Phone Len Adhikari MD Primary Care Provider Jovany Gonzalez MD Unavailable [phone] CrissyStaci jeong PSYCH RN Unavailable [phone] Len Adhikari MD Unavailable Reanna Smith RD Unavailable [phone] Katiana Read MD Unavailable [phone] Roshni Nascimento RN Unavailable Unavailable Kiet Swain MD Unavailable [phone] Winsome Pike APRN PRODUCTION CONTROL TECHNOLOGIST Unavailable [phone] Tori HinesSW Unavailable Miranda Queen [facility] Unavailable Unavailable Winsome Pike APRN PRODUCTION CONTROL TECHNOLOGIST Unavailable [phone] Marisel Armando MD Unavailable Marisel Armando MD Unavailable Inderjit Ugalde MD Unavailable [phone] Wesley Barrett MD Unavailable [phone] Charles Jaramillo PA-C Unavailable [phone] Miranda Queen [facility] Unavailable Unavailable Leeann Rinaldi MD Unavailable Miranda Queen [facility] Unavailable Unavailable Dyan Fuentes MD Primary Care Provider [phone] Dyan Fuentes MD Unavailable [phone] Katiana Read MD Unavailable [phone] Meme Singleton PhD Unavailable [phone] Deena Garza APRN PRODUCTION CONTROL TECHNOLOGIST Unavailable [phone] Mary Del Cid PSYCH RN Unavailable + [phone] Elham Stack [facility] Unavailable [phone] Emerita Potter [facility] Unavailable [phone] Mary Del Cid PSYCH RN Unavailable + [phone] Michelle Guzman DPM, Podiatry /Foot and Ankle Surgery Unavailable Dyan Fuentes MD Unavailable [phone] Reason for Visit * Reason Onset Date Comments Patient/info Update 06/08/2021 Encounter Details Date Type Department Care Team (Late st Contact Info) Description 06/08/2021 [facility] [address] [place], [place] [address] Deena Garza, VIDHI [place] [id number] [place] [address] Patient/info Update Social History Tobacco Use Types [...] or neighbors? Three times a week 10/17/19 22 How often do you get togethe [...] [facility] of Occupat ional [facility] - Occupational Stress Questionnaire Answer Date [...] Telephone Encounter - Janine Argueta RN - 06/09/2021 10:30 AM BREAKER MACHINE OPERATOR Noted by nursing, will keep encounter open at this time for pt communication and nursing chart review. Janine Raymundo RN Roll Off Driver [facility] KER MACHINE OPERATOR * Telephone Encounter - Lenka Healy - 06/08/2021 4:59 PM CST Pt calling to inform care team she is going to the ED due to complications from her neck surgery. If you need to reach her she will have her tablet and can send Game Venturest messages. Lenka Baker Casting House Laborer [facility] Pain Management KER MACHINE OPERATOR documented in this encounter Plan of Treatment Upcoming Encounters Date Type Department Care Team (Late st Contact Info) Description 08/18/2023 3:00 PM BREAKER MACHINE OPERATOR Office Visit [facility] [address] [place] [address] Katiana Read MD [address] [place] [address] documented as of this encounter Visit Diagnoses [...] documented as of this encounter Care Teams Laminating Machine Feeder Relationship Specialty Start Date End Date Len Adhikari MD PCP - General Family Practice 11/08/16 05/09/22 [place] [address] [place] [address] PCP - General Family Medicine 05/18/22 Jovany Gonzalez MD [facility] 6600 [facility] [address] [place] [address] Orthopedics 02/15/17 Staci Woodward NP [facility] [address] [place], [place] [address] Nurse Practitioner Nurse Practitioner Psych/Mental Health 05/10/17 [place] [address] [place] [address] Assigned PCP 11/14/16 01/22/[address] [facility] [address] [place] [address] Editorial Intern Dietitian, Registered 07/25/19 Katiana Read MD [address] [place] [address]130 Assigned Endocrinology Provider 05/02/20 08/01/21 Roshni Nascimento, ZITA Personal Advocate & Liaison (PAL) Family Medicine 08/18/20 Kiet Swain MD [address] [place], [place] [address] [place], [place] [address] Referring Physician Psychiatry 09/19/20 Winsome Pike APRN PRODUCTION CONTROL TECHNOLOGIST [address] [place] [address] 104304 Nurse Practitioner Psychiatry 09/19/20 Tori Hines, [facility] [address] [place] [address] Working Second Hand Working Second Hand - Clinical 09/19/20 Miranda Queen, [facility] [address] [place] [address] Pharmacist Pharmacist 11/12/20 Winsome Pike APRN PRODUCTION CONTROL TECHNOLOGIST [address] [address] Assigned Behavioral Health Provider 01/04/21 07/02/22 Marisel Armando MD [address] [place] [address] 279545 Gastroenterology 02/05/21 Marisel Armando MD [address] [place] [address] 174895 Assigned Gastroenterology Provider 03/08/21 12/24/22 Inderjit Ugalde MD [address] [facility] 300 [place], [place] [address] Assigned Surgical Provider 02/15/21 08/20/22 Wesley Barrett MD [address] [place] [address] 96 [place], [place] [address] Assigned Neuroscience Provider 05/10/21 Charles Jaramillo PA-C [address] [address] Assigned Musculoskeletal Provider 04/26/21 10/15/22 Miranda Queen [facility] [address] [place] [address] Assigned MTM Pharmacist 12/05/21 03/26/22 [place] [address] [place] [address] Assigned PCP 01/23/22 05/14/22 Miranda Queen [facility] [address] [place] [address] Assigned MTM Pharmacist 04/07/22 05/14/22 [place] [address] [place] [address] Assigned PCP 05/15/22 Katiana Read MD [address] [address] Assigned Endocrinology Provider 06/19/22 [place] [address] [place] [address] Assigned Behavioral Health Provider 07/03/22 12/31/22 Deena Garza APRN PRODUCTION CONTROL TECHNOLOGIST [address] [place] [address] Assigned Pain Medication Provider 07/19/22 10/29/22 Mary Del Cid, RAFAEL [address] [address] [place] [address] Nurse Practitioner Nurse Practitioner 10/18/22 Elham Stack, [facility] [address] [place] [address] Pharmacist Pharmacist 10/19/22 Emerita Potter, [facility] Clinic Roll Off Driver Working Second Hand - Clinical 10/29/22 11/02/22 Mary Del Cid, RAFAEL [address] [address] [place] [address] Assigned Pain Medication Provider 10/30/22 12/03/22 Michelle Guzman, ALDOM, Podiatry/Foot and Ankle Surgery [address] [place] [address] Assigned Musculoskeletal Provider 10/16/22 04/08/23 [place] [address] [place] [address] Assigned Pain Medication Provider 12/04/22 04/01/23 documented as of this encounter
--- OUTSIDE RECORDS SUMMARY | 2023-08-03 10:10 | XMS_ITS | Encounter Summary ---
Author Name Unknown Organization [facility] Address [address] [place] [address]. [place] [address] Care Team Providers Care Ring Conductor Name Role Phone Len Adhikari MD Primary Care Provider Jovany Gonzalez MD Unavailable CrissyStaci jeong CIRCLE SHEAR OPERATOR Unavailable [phone] Len Adhikari MD Unavailable Reanna Smith RD Unavailable [phone] Katiana Read MD Unavailable [phone] Roshni Nascimento RN Unavailable Unavailable Kiet Swain MD Unavailable [phone] Winsome Pike APRN CPR AMBULANCE DRIVER Unavailable [phone] Tori HinesSW Unavailable Miranda Queen [facility] Unavailable Unavailable Winsome Pike APRN CPR AMBULANCE DRIVER Unavailable [phone] Marisel Armando MD Unavailable Marisel Armando MD Unavailable Inderjit Ugalde MD Unavailable [phone] Wesley Barrett MD Unavailable +[phone] Charles Jaramillo PA-C Unavailable +[phone] Miranda Queen [facility] Unavailable Unavailable Leeann Rinaldi MD Unavailable Miranda Queen [facility] Unavailable Unavailable Dyan Fuentes MD Primary Care Provider [phone] Dyan Fuentes MD Unavailable + [phone] Katiana Read MD Unavailable +[phone] Meme Singleton PhD Unavailable + Deena Garza CRM TECHNICAL LEAD CPR AMBULANCE DRIVER Unavailable [phone] Mary Del Cid CIRCLE SHEAR OPERATOR Unavailable + [phone] Elham Stack [facility] Unavailable +[phone] Emerita Potter [facility] Unavailable +[phone] Mary Del Cid CIRCLE SHEAR OPERATOR Unavailable +[phone] Michelle Guzman DPM, Podiatry /Foot and Ankle Surgery Unavailable Dyan Fuentes MD Unavailable +[phone] Mary Del Cid NP Unavailable +[phone] Aubrey Jones MD Unavailable +[phone] Blanquita Morales Unavailable Unavailable Aubrey Jones MD Unavailable + [phone] Encounter Details Date Type Department Care Team (Late st [facility]) Description 05/29/2021 [facility] [address] [place] [address] Roshni Nascimento, RN Social History Tobacco [...] you attend chur ch or church services? Never 09/20/2020 Do you belong to [...] Answer Date Recorded PHQ-2 Score 2 02/02/2021 [facility] [...] COVID-19? No / Unsure 05/28/2021 3:03 PM OR MANAGER documented as of this encounter Plan of Treatment Upcoming Encounters Date Type Department Care Team (Late st Contact Info) Description 08/18/2023 3:00 PM OR MANAGER Office Visit [facility] [address] [place] [address] Katiana Read MD [address] [place] [address] documented as of this encounter Visit Diagnoses [...] documented as of this encounter Care Teams Ring Conductor Relationship Specialty Start Date End Date Len Adhikari MD PCP - General Family Practice 11/08/16 05/09/22 [place] [address] [place] [address] PCP - General Family Medicine 05/18/22 Jovany Gonzalez MD [facility] 6600 [facility] 605 [place] [address] Orthopedics 02/15/17 Staci Woodward CIRCLE SHEAR OPERATOR [place] [address] [place], [place] [address] Nurse Practitioner Nurse Practitioner Psych/Mental Health 05/10/17 [place] [address] [facility] [place] [address] Assigned PCP 11/14/16 01/22/[address] [facility] [address] [place] [address] Stained Glass Window Designer Dietitian, Registered 07/25/19 Katiana Read MD [address] [address] Assigned Endocrinology Provider 05/02/20 08/01/21 Roshni Nascimento RN Personal Advocate & Liaison (PAL) Family Medicine 08/18/20 Kiet Swain MD [address] [place] [address] [address] [place] [address] Referring Physician Psychiatry 09/19/20 Winsome Pike APRN CPR AMBULANCE DRIVER [address] [place] [address] Nurse Practitioner Psychiatry 09/19/20 Tori Hines [facility] [address] [place] [address] Car Driver Car Driver - Clinical 09/19/20 Miranda Queen [facility] [address] [place] [address] Pharmacist Pharmacist 11/12/20 Winsome Pike APRN CPR AMBULANCE DRIVER [address] [place] [address] Assigned Behavioral Health Provider 01/04/21 07/02/22 Marisel Armando MD [address] [place] [address] Gastroenterology 02/05/21 Marisel Armando MD [address] [place] [address] Assigned Gastroenterology Provider 03/08/21 12/24/22 Inderjit Ugalde MD [address] [place] [address] Assigned Surgical Provider 02/15/21 08/20/22 Wesley Barrett MD 420 [facility] 96 [place] [address] Assigned Neuroscience Provider 05/10/21 Charles Jaramillo PA-C [address] [facility] [address] [place] [address] Assigned Musculoskeletal Provider 04/26/21 10/15/22 [facility] [address] [place] [address] Assigned MTM Pharmacist 12/05/21 03/26/22 [place] [address] [place] [address] Assigned PCP 01/23/22 05/14/22 Miranda Queen [facility] [address] [place] [address] Assigned MTM Pharmacist 04/07/22 05/14/22 [place] [address] [place] [address] Assigned PCP 05/15/22 Katiana Read MD [address] [address] [place] [address] Assigned Endocrinology Provider 06/19/22 [place] [address] [place] [address] Assigned Behavioral Health Provider 07/03/22 12/31/22 Deena Garza APRN CNP [address] [place] [address] Assigned Pain Medication Provider 07/19/22 10/29/22 [place] [address] [address] [place] [address] Nurse Practitioner Nurse Practitioner 10/18/22 Elham Stack, [facility] [address] [place], [place] [address] Pharmacist Pharmacist 10/19/22 Emerita Potter, [facility] Clinic Concept Artist Car Driver - Clinical 10/29/22 11/02/22 [place] [address] [address] [place] [address] Assigned Pain Medication Provider 10/30/22 12/03/22 Michelle Guzman DPM, Podiatry/Foot and Ankle Surgery [address] [place] [address] Assigned Musculoskeletal Provider 10/16/22 04/08/23 [place] [address] [place] [address] Assigned Pain Medication Provider 12/04/22 04/01/23 [place] [address] [address] [place] [address] Nurse Practitioner Nurse Practitioner 01/17/23 01/17/23 Aubrey Jones MD [address] [place] [address] Cardiovascular Disease 03/28/23 Blanquita Morales Stained Glass Window Designer Diabetes Education 04/25/23 Aubrey Jones MD [address] [place] [address] Assigned Heart and Vascular Provider 05/07/23 documented as of this encounter
--- OUTSIDE RECORDS SUMMARY | 2023-08-03 10:10 | XMS_ITS | Encounter Summary ---
Author Name Unknown Organization [facility] Address [address] [place] [address]. [place] [address] Care Team Providers Care Research Electrician Name Role Phone Len Adhikari MD Primary Care Provider Jovany Gonzalez MD Unavailable [phone] CrissyStaci jeong CUB REPORTER Unavailable [phone] Len Adhikari MD Unavailable Reanna Smith [address] Unavailable [phone] Katiana Read MD Unavailable [phone] Roshni Nascimento RN Unavailable Unavailable Kiet Swain MD Unavailable [phone] Winsome Pike APRN CASE LINER Unavailable [phone] Tori HinesSW Unavailable Miranda Queen [facility] Unavailable Unavailable Winsome Pike APRN CASE LINER Unavailable [phone] Marisel Armando MD Unavailable Marisel Armando MD Unavailable Inderjit Ugalde MD Unavailable [phone] Wesley Barrett MD Unavailable [phone] Charles Jaramillo PA-C Unavailable +[phone] Miranda Queen [facility] Unavailable Unavailable Leeann Rinaldi MD Unavailable Miranda Queen [facility] Unavailable Unavailable Dyan Fuentes MD Primary Care Provider [phone] Dyan Fuentes MD Unavailable +[phone] Katiana Read MD Unavailable [phone] Meme Singleton PhD Unavailable +[phone] Deena Garza FLANGER CASE LINER Unavailable [phone] Mary Del Cid CUB REPORTER Unavailable + [phone] Elham Stack [facility] Unavailable [phone] Emerita Potter [facility] Unavailable +[phone] Mary Del Cid CUB REPORTER Unavailable + [phone] Michelle Guzman DPM, Podiatry /Foot and Ankle Surgery Unavailable Dyan Funetes MD Unavailable [phone] Mary Del Cid NP Unavailable + [phone] Aubrey Jones MD Unavailable [phone] Blanquita Morales Unavailable Unavailable Aubrey Jones MD Unavailable [phone] Reason for Visit * Reason Onset Date Comments Call Back 06/12/2021 Encounter Details Date Type Department Care Team (Late st Contact Info) Description 06/12/2021 Telephone [facility] [address] [address] Marisel Armando MD [address] [place] [address] Call Back Social History Tobacco Use Types [...] often do you attend chur ch or anglican services? Never 09/20/2020 Do you belong to [...] Answer Date Recorded PHQ-2 Score 2 02/02/2021 [facility] Answer [...] slept in a mcc (including now)? No 09/20/2020 Education Answer Date [...] COVID-19? No / Unsure 06/08/2021 6:55 PM DIRECTOR OF FINANCE documented as of this encounter Miscellaneous Notes * Telephone Encounter - Dede Rahman - 06/12/2021 2:30 PM CST [facility] Phone Message May a detailed message be left on voicemail: yes Reason for Call: Other: [facility] called in requesting a call back, because the pt is able to get labs at that location however they want to be sure that the pt gets the correct labs done. Please reach out. Thank you. Action Taken: Message routed to: [facility] hep Travel Screening: Not Applicable CTOR OF FINANCE documented in this encounter Plan of Treatment Upcoming Encounters Date Type Department Care Team (Late st Contact Info) Description 08/18/2023 3:00 PM DIRECTOR OF FINANCE Office Visit [facility] [address] [place] [address] Katiana Read MD [address] [place] [address] documented as of this encounter Visit Diagnoses [...] documented as of this encounter Care Teams Research Electrician Relationship Specialty Start Date End Date Len Adhikari MD PCP - General Family Practice 11/08/16 05/09/22 [place] [address] [place] [address] PCP - General Family Medicine 05/18/22 Jovany Gonzalez MD [facility] 6600 [facility] [address] [place] [address] Orthopedics 02/15/17 Staci Woodward NP [facility] [address] [place], [place] 87[address] Nurse Practitioner Nurse Practitioner Psych/Mental Health 05/10/17 [place] [address] [place] [address] Assigned PCP 11/14/16 01/22/[address] [facility] [address] [place] [address] Business Analysis Consultant Dietitian, Registered 07/25/19 Katiana Read MD [address] [place] [address] 200 [place] [address] Assigned Endocrinology Provider 05/02/20 08/01/21 Roshni Nascimento, RN Personal Advocate & Liaison (PAL) Family Medicine 08/18/20 Kiet Swain MD [address] [place] [address] 801014 Referring Physician Psychiatry 09/19/20 Winsome Pike APRN CASE LINER [address] [place] [address] 254274 Nurse Practitioner Psychiatry 09/19/20 Tori Hines, [facility] [address] [place] [address] Boiler/Chiller Operator Boiler/Chiller Operator - Clinical 09/19/20 Miranda Queen, [facility] [address] [place] [address] Pharmacist Pharmacist 11/12/20 Winsome Pike APRN CASE LINER [address] [address] Assigned Behavioral Health Provider 01/04/21 07/02/22 Marisel Armando MD [address] [place] [address] 790095 Gastroenterology 02/05/21 Marisel Armando MD [address] [place] [address] 085195 Assigned Gastroenterology Provider 03/08/21 12/24/22 Inderjit Ugalde MD [address] [facility] 300 [place], [place] [address] Assigned Surgical Provider 02/15/21 08/20/22 Wesley Barrett MD 420 [facility] 96 [place], [place] [address] Assigned Neuroscience Provider 05/10/21 Charles Jaramillo PA-C [address] [address] Assigned Musculoskeletal Provider 04/26/21 10/15/22 Miranda Queen R[facility] [address] [place] [address] Assigned MTM Pharmacist 12/05/21 03/26/22 [place] [address] [place] [address] Assigned PCP 01/23/22 05/14/22 Miranda Queen [facility] [address] [place] [address] Assigned MTM Pharmacist 04/07/22 05/14/22 [place] [address] [place] [address] Assigned PCP 05/15/22 Katiana Read MD [address] [place] [address] Assigned Endocrinology Provider 06/19/22 [place] [address] [place] [address] Assigned Behavioral Health Provider 07/03/22 12/31/22 Deena Garza APRN CASE LINER [address] [place] [address] Assigned Pain Medication Provider 07/19/22 10/29/22 Mary Del Cid, [place]FA[place] [address] [place] [address] Nurse Practitioner Nurse Practitioner 10/18/22 Elham Stack, [facility] 3033 [place] [address] Pharmacist Pharmacist 10/19/22 Emerita Potter, [facility] Clinic Bladder Blower Boiler/Chiller Operator - Clinical 10/29/22 11/02/22 [place] [address] [place] [place] [address] Assigned Pain Medication Provider 10/30/22 12/03/22 Michelle Guzman, ALDOM, Podiatry/Foot and Ankle Surgery [address] [place] [address] Assigned Musculoskeletal Provider 10/16/22 04/08/23 [place] [address] [place] [address] Assigned Pain Medication Provider 12/04/22 04/01/23 [place] [address] [place] [address] Nurse Practitioner Nurse Practitioner 01/17/23 01/17/23 Aubrey Jones MD [address] [place] [address] Cardiovascular Disease 03/28/23 Blanquita Morales Business Analysis Consultant Diabetes Education 04/25/23 Aubrey Jones MD [address] [place] [address] Assigned Heart and Vascular Provider 05/07/23 documented as of this encounter
--- OUTSIDE RECORDS SUMMARY | 2023-08-03 10:10 | XMS_ITS | Encounter Summary ---
Author Name Unknown Organization [facility] Address [address] [place] [address]. [place] [address] Care Team Providers Care Aircraft General Repair Mechanic Name Role Phone Len Adhikari MD Primary Care Provider Jovany Gonzalez MD Unavailable CrissyStaci jeong MILL TURNER Unavailable [phone] Len Adhikari MD Unavailable Reanna Smith RD Unavailable Katiana Read MD Unavailable [phone] Roshni Nascimento RN Unavailable Unavailable Kiet Swain MD Unavailable [phone] Winsome Pike APRN QUALITY ASSURANCE INSPECTOR Unavailable [phone] Tori HinesSW Unavailable Miranda Queen [facility] Unavailable Unavailable Winsome Pike APRN QUALITY ASSURANCE INSPECTOR Unavailable [phone] Marisel Armando MD Unavailable Marisel Armando MD Unavailable Inderjit Ugalde MD Unavailable [phone] Wesley Barrett MD Unavailable [phone] Charles Jaramillo PA-C Unavailable +[phone] Miranda Queen [facility] Unavailable Unavailable Leeann Rinaldi MD Unavailable Miranda Queen [facility] Unavailable Unavailable Dyan Fuentes MD Primary Care Provider [phone] Dyan Fuentes MD Unavailable +[phone] Katiana Read MD Unavailable +[phone] Meme Singleton PhD Unavailable +[phone] Deena Garza INSPECTOR WELDED PARTS QUALITY ASSURANCE INSPECTOR Unavailable +[phone] Mary Del Cid MILL TURNER Unavailable + [phone] Elham Stack [facility] Unavailable [phone] Emerita Potter [facility] Unavailable +[phone] Mary Del Cid MILL TURNER Unavailable +[phone] Michelle Guzman DPM, Podiatry /Foot and Ankle Surgery Unavailable Dyan Fuentes MD Unavailable +[phone] Mary Del Cid NP Unavailable +[phone] Aubrey Jones MD Unavailable [phone] Balnquita Morales Unavailable Unavailable Aubrey Jones MD Unavailable +[phone] Encounter Details Date Type Department Care Team (Late st [facility]) Description 06/18/2021 [facility] [address] [address] Pollo Hayes RN Social History Tobacco Use Types Packs/Day [...] often do you attend chur ch or christianity services? Never 09/20/2020 Do you belong to [...] Answer Date Recorded PHQ-2 Score 2 02/02/2021 [facility] - Occupational Stress Questionnaire Answer [...] COVID-19? No / Unsure 06/18/2021 7:29 PM MASONRY INSPECTOR documented as of this encounter Miscellaneous Notes * Telephone Encounter - Marilu Brannon - 06/19/2021 12:16 PM CST Pt would like a call back. Please call her at [phone] NRY INSPECTOR documented in this encounter Plan of Treatment Upcoming Encounters Date Type Department Care Team (Late st Contact Info) Description 08/18/2023 3:00 PM MASONRY INSPECTOR Office Visit [facility] [address] [place] [address] Katiana Read MD [address] [place] [address] documented as of this encounter [...] documented as of this encounter Care Teams Aircraft General Repair Mechanic Relationship Specialty Start Date End Date Len Adhikari MD PCP - General Family Practice 11/08/16 05/09/22 [place] [address] [place] [address] PCP - General Family Medicine 05/18/22 Jovany Gonzalez MD [facility] 6600 [facility] 605 [place], [place] 137[address] Orthopedics 02/15/17 Staci Woodward NP [place] [address] [place], [place] [address] Nurse Practitioner Nurse Practitioner Psych/Mental Health 05/10/17 [place] [address] [place] [address] Assigned PCP 11/14/16 01/22/[address] [facility] [address] [place] [address] Rope Tier Dietitian, Registered 07/25/19 Katiana Read MD [address] [place] [address] Assigned Endocrinology Provider 05/02/20 08/01/21 Roshni Nascimento, RN Personal Advocate & Liaison (PAL) Family Medicine 08/18/20 Kiet Swain MD [address] [place] [address] Referring Physician Psychiatry 09/19/20 Winsome Pike APRN QUALITY ASSURANCE INSPECTOR [address] [place] [address] [id number] Nurse Practitioner Psychiatry 09/19/20 Tori Hines [facility] [address] [place] [address] 239794 Sugar Refinery Supervisor Sugar Refinery Supervisor - Clinical 09/19/20 Miranda Queen [facility] [address] [place] [address] Pharmacist Pharmacist 11/12/20 Winsome Pike APRN QUALITY ASSURANCE INSPECTOR [address] [place] [address] 785484 Assigned Behavioral Health Provider 01/04/21 07/02/22 Marisel Armando MD [address] [place] [address] [phone] Gastroenterology 02/05/21 Marisel Armando MD 909 [place] [address] Assigned Gastroenterology Provider 03/08/21 12/24/22 Inderjit Ugalde MD [address] [place] [address] Assigned Surgical Provider 02/15/21 08/20/22 Wesley Barrett MD 420 [facility] 96 [place] [address] Assigned Neuroscience Provider 05/10/21 Charles Jaramillo PA-C [address] [address] Assigned Musculoskeletal Provider 04/26/21 10/15/22 Miranda Queen [facility] [address] [place] [address] Assigned MTM Pharmacist 12/05/21 03/26/22 [place] [address] [place] [address] Assigned PCP 01/23/22 05/14/22 Miranda Queen [facility] [address] [place] [address] Assigned MTM Pharmacist 04/07/22 05/14/22 [place] [address] [place] [address] Assigned PCP 05/15/22 Katiana Read MD [address] [facility] 200 [place] [address] Assigned Endocrinology Provider 06/19/22 Meme Singleton[place] PhD [address] [place] [address] Assigned Behavioral Health Provider 07/03/22 12/31/22 Deena Garza, INSPECTOR WELDED PARTS QUALITY ASSURANCE INSPECTOR [address] [place] [address] Assigned Pain Medication Provider 07/19/22 10/29/22 [place] [address] [place] [address] Nurse Practitioner Nurse Practitioner 10/18/22 Elham Stack, [facility] [address] [place], [place] [address] Pharmacist Pharmacist 10/19/22 Emerita Potter, [facility] Clinic Developer Advocate Sugar Refinery Supervisor - Clinical 10/29/22 11/02/22 [place] [address] [place] [address] Assigned Pain Medication Provider 10/30/22 12/03/22 Michelle Guzman DPM, Podiatry/Foot and Ankle Surgery [address] ABREU [facility] [place] [address] Assigned Musculoskeletal Provider 10/16/22 04/08/23 [place] [address] [place] [address] Assigned Pain Medication Provider 12/04/22 04/01/23 [place] [address] [place] [address] Nurse Practitioner Nurse Practitioner 01/17/23 01/17/23 Aubrey Jones MD [address] [place] [address] Cardiovascular Disease 03/28/23 Blanquita Morales Rope Tier Diabetes Education 04/25/23 Aubrey Jones MD [address] [place] [address] Assigned Heart and Vascular Provider 05/07/23 documented as of this encounter
--- OUTSIDE RECORDS SUMMARY | 2023-08-03 10:10 | XMS_ITS | Encounter Summary ---
Author Name Unknown Organization [facility] Address [address] [place] [address]. [place] [address] Care Team Providers Care Hop Strainer Name Role Phone Len Adhikari MD Primary Care Provider Jovany Gonzalez MD Unavailable CrissyStaci jeong CLIENT SERVICE EXECUTIVE Unavailable [phone] Len Adhikari MD Unavailable [phone] Unavailable Katiana Read MD Unavailable +[phone] Roshni Nascimento RN Unavailable Unavailable Kiet Swain MD Unavailable [phone] Winsome Pike APRN HOUSING MANAGER Unavailable +[phone] Tori HinesSW Unavailable Miranda Queen [facility] Unavailable Unavailable Winsome Pike APRN HOUSING MANAGER Unavailable [phone] Marisel Armando MD Unavailable Marisel Armando MD Unavailable Inderjit Ugalde MD Unavailable [phone] Wesley Barrett MD Unavailable +[phone] Charles Jaramillo PA-C Unavailable +[phone] Miranda Queen [facility] Unavailable Unavailable Leeann Rinaldi MD Unavailable Miranda Queen [facility] Unavailable Unavailable Dyan Fuentes MD Primary Care Provider [phone] Dyan Fuentes MD Unavailable +[phone] Katiana Read MD Unavailable +[phone] Meme Singleton PhD Unavailable +[phone] Deena Garza MEAL TEMPERER HOUSING MANAGER Unavailable +[phone] Mary Del Cid CLIENT SERVICE EXECUTIVE Unavailable + [phone] Elham Stack [facility] Unavailable +[phone] Emerita Potter [facility] Unavailable [phone] Mary Del Cid CLIENT SERVICE EXECUTIVE Unavailable + [phone] Michelle Guzman DPM, Podiatry /Foot and Ankle Surgery Unavailable Dyan Fuentes MD Unavailable +[phone] Mary Del Cid NP Unavailable + [phone] Aubrey Jones MD Unavailable +[phone] Blanquita Morales Unavailable Unavailable Aubrey Jones MD Unavailable +[phone] Encounter Details Date Type Department Care Team (Late st [facility] Info) Description 05/11/2021 [facility] Medical Advice [facility] [address] [facility] [address] [place] [address] Rahcelle Benites, [facility] Social History [...] Answer Date Recorded PHQ-2 Score 2 02/02/2021 [facility] - Occupational Stress Questionnaire Answer Date Recorded [...] have Coronavirus / COVID-19? No / Unsure 05/11/2021 12:26 PM CDT documented as of this encounter Plan of Treatment Upcoming Encounters Date Type Department Care Team (Late st Contact Info) Description 08/18/2023 3:00 PM BOLT LABELER Office Visit [facility] [address] [place] [address] Katiana Read MD [address] [place], [place] [address] documented as of this encounter Visit Diagnoses Not on filedocumented in this encounter Additional Health Concerns Infection Onset Date Last Indicated Resolved Time Rule Out C-difficile 10/14/2022 10/15/2022 023 12:33 AM CDT Rule Out C-difficile 10/15/2022 10/15/202210/15/2 023 5:39 AM CDT C-difficile 10/15/2022 10/27/2022 11/26/2022 11:4 0 PM CDT Rule Out C-difficile 10/26/2022 10/27/2022 023 2:14 AM CDT Rule Out C-difficile 12/05/2022 12/05/2022 023 9:44 AM CDT Assessment Noted Time PHQ-9 Depression Total Score: 12 021 4:21 PM CDT documented as of this encounter Care Teams Hop Strainer Relationship Specialty Start Date End Date Len Adhikari MD PCP - General Family Practice 11/08/16 05/09/22 [place] [address] [place] [address] PCP - General Family Medicine 05/18/22 Jovany Gonzalez MD [facility] [address] [facility] [address] [place], [place] [address] Orthopedics 02/15/17 Staci Woodward CLIENT SERVICE EXECUTIVE [facility] [address] [place] [address] Nurse Practitioner Nurse Practitioner Psych/Mental Health 05/10/17 [place] [address] [facility] [place] [address] Assigned PCP 11/14/16 01/22/[address] [facility] [address] [place] [address] Open Pit Quarry Supervisor Dietitian, Registered 07/25/19 Katiana Read MD [address] 011170 Assigned Endocrinology Provider 05/02/20 08/01/21 Roshni Nascimento, RN Personal Advocate & Liaison (PAL) Family Medicine 08/18/20 Kiet Swain MD [address] [place] [address] [address] [place] [address] Referring Physician Psychiatry 09/19/20 Winsome Pike APRN HOUSING MANAGER [address] [place] [address] Nurse Practitioner Psychiatry 09/19/20 Tori Hines [facility] [address] [place] [address] Training Development Manager Training Development Manager - Clinical 09/19/20 Miranda Queen [facility] [address] [place] [address] Pharmacist Pharmacist 11/12/20 Winsome Pike APRN HOUSING MANAGER [address] [place] [address] Assigned Behavioral Health Provider 01/04/21 07/02/22 Marisel Armando MD [address] [place] [address] Gastroenterology 02/05/21 Marisel Armando MD [address] [place] [address] Assigned Gastroenterology Provider 03/08/21 12/24/22 Inderjit Ugalde MD [address] [place] [address] Assigned Surgical Provider 02/15/21 08/20/22 Wesley Barrett MD 420 [facility] 96 [place] [address] Assigned Neuroscience Provider 05/10/21 Charles Jaramillo PA-C [address] [facility] [address] [place] [address] Assigned Musculoskeletal Provider 04/26/21 10/15/22 [facility] [address] [place] [address] Assigned MTM Pharmacist 12/05/21 03/26/22 [place] [address] [place] [address] Assigned PCP 01/23/22 05/14/22 Miranda Queen [facility] [address] [place] [address] Assigned MTM Pharmacist 04/07/22 05/14/22 [place] [address] [place] [address] Assigned PCP 05/15/22 Katiana Read MD [address] 200 [place] [address] Assigned Endocrinology Provider 06/19/22 [place] [address] [place] [address] Assigned Behavioral Health Provider 07/03/22 12/31/22 Deena Garza APRN CNP [address] [address] Assigned Pain Medication Provider 07/19/22 10/29/22 [place] [address] [address] [address] Nurse Practitioner Nurse Practitioner 10/18/22 Elham Stack, [facility] [address] [place] [address] Pharmacist Pharmacist 10/19/22 Emerita Potter, [facility] Clinic Showroom Salesperson Training Development Manager - Clinical 10/29/22 11/02/22 [place] [address] [address] [place] [address] Assigned Pain Medication Provider 10/30/22 12/03/22 Michelle Guzman DPM, Podiatry/Foot and Ankle Surgery [address] [place] [address] Assigned Musculoskeletal Provider 10/16/22 04/08/23 [place] [address] [place] [address] Assigned Pain Medication Provider 12/04/22 04/01/23 [place] [address] [address] [address] Nurse Practitioner Nurse Practitioner 01/17/23 01/17/23 Aubrey Jones MD [address] [place] [address] Cardiovascular Disease 03/28/23 Blanquita Morales Open Pit Quarry Supervisor Diabetes Education 04/25/23 Aubrey Jones MD [address] [place] [address] Assigned Heart and Vascular Provider 05/07/23 documented as of this encounter
--- OUTSIDE RECORDS SUMMARY | 2023-08-03 10:10 | XMS_ITS | Encounter Summary ---
Author Name Unknown Organization [facility] Address [address] [place] [address]. [place] [address] Care Team Providers Care Pig Handler Name Role Phone Len Adhikari MD Primary Care Provider Jovany Gonzalez MD Unavailable CrissyStaci jeong RESPITE PROVIDER Unavailable [phone] Len Adhikari MD Unavailable Reanna Smith RD Unavailable Katiana Read MD Unavailable [phone] Roshni Nascimento RN Unavailable Unavailable Kiet Swain MD Unavailable [phone] Winsome Pike APRN TELETYPESETTER Unavailable [phone] Tori HinesSW Unavailable Miranda Queen [facility] Unavailable Unavailable Winsome Pike APRN TELETYPESETTER Unavailable [phone] Marisel Armando MD Unavailable Marisel Armando MD Unavailable Inderjit Ugalde MD Unavailable [phone] Wesley Barrett MD Unavailable [phone] Charles Jaramillo PA-C Unavailable +[phone] Miranda Queen [facility] Unavailable Unavailable Leeann Rinaldi MD Unavailable Miranda Queen [facility] Unavailable Unavailable Dyan Fuentes MD Primary Care Provider [phone] Dyan Fuentes MD Unavailable + [phone] Katiana Read MD Unavailable +[phone] Meme Singleton PhD Unavailable +[phone] Deena Garza CONTROL CLERK TELETYPESETTER Unavailable +[phone] Mary Del Cid RESPITE PROVIDER Unavailable + [phone] Elham Stack [facility] Unavailable +[phone] Emerita Potter [facility] Unavailable +[phone] Mary Del Cid RESPITE PROVIDER Unavailable + [phone] Michelle Guzman DPM, Podiatry /Foot and Ankle Surgery Unavailable Dyan Fuentes MD Unavailable [phone] Mary Del Cid NP Unavailable +[phone] Aubrey Jones MD Unavailable [phone] Blanquita Morales Unavailable Unavailable Aubrey Jones MD Unavailable + [phone] Encounter Details Date Type Department Care Team (Late st [facility]) Description 05/28/2021 [facility] [place] [address] [address] Caryl Wheeler, MICHELLE Social History Tobacco Use Types Packs/Day Years [...] often do you attend chur ch or mormon services? Never 09/20/2020 Do you belong to any clubs o r organizations such as islam groups, unions, fraternal or athletic groups, or [...] 2 02/02/2021 [facility] - Occupational Stress [...] COVID-19? No / Unsure 05/28/2021 3:03 PM SOLAR SALES CONSULTANT documented as of this encounter Plan of Treatment Upcoming Encounters Date Type Department Care Team (Late st Contact Info) Description 08/18/2023 3:00 PM SOLAR SALES CONSULTANT Office Visit [facility] [address] [place] [address] Katiana Read MD [address] [place] [address] documented as of this encounter Visit Diagnoses [...] documented as of this encounter Care Teams Pig Handler Relationship Specialty Start Date End Date Len Adhikari MD PCP - General Family Practice 11/08/16 05/09/22 [place] [address] [place] [address] PCP - General Family Medicine 05/18/22 Jovany Gonzalez MD [facility] 66[address] [facility] 605 [place] [address] Orthopedics 02/15/17 Staci Woodward RESPITE PROVIDER [place] [address] [address] [place], [place] [address] Nurse Practitioner Nurse Practitioner Psych/Mental Health 05/10/17 [place] [address] [facility] [address] Assigned PCP 11/14/16 01/22/[address] [facility] [address] [place] [address] Hand Candy Dipper Dietitian, Registered 07/25/19 Katiana Read MD [address] [address] Assigned Endocrinology Provider 05/02/20 08/01/21 Roshni Nascimento RN Personal Advocate & Liaison (PAL) Family Medicine 08/18/20 Kiet Swain MD [address] [place] [address] [address] [place] [address] Referring Physician Psychiatry 09/19/20 Winsome Pike APRN TELETYPESETTER [address] [place] [address] Nurse Practitioner Psychiatry 09/19/20 Tori Hines [facility] [address] [place] [address] Grain Cleaner Grain Cleaner - Clinical 09/19/20 Miranda Queen [facility] [address] [place] [address] Pharmacist Pharmacist 11/12/20 Winsome Pike APRN TELETYPESETTER [address] [place] [address] Assigned Behavioral Health Provider 01/04/21 07/02/22 Marisel Armando MD [address] [place] [address] Gastroenterology 02/05/21 Marisel Armando MD [address] [place] [address] Assigned Gastroenterology Provider 03/08/21 12/24/22 Inderjit Ugalde MD [address] [place] [address] Assigned Surgical Provider 02/15/21 08/20/22 Wesley Barrett MD 420 [facility] 96 [place] [address] Assigned Neuroscience Provider 05/10/21 Charles Jaramillo PA-C [address] [facility] [address] [place] [address] Assigned Musculoskeletal Provider 04/26/21 10/15/22 Miranda Queen [facility] [address] [place] [address] Assigned MTM Pharmacist 12/05/21 03/26/22 [place] [address] [place] [address] Assigned PCP 01/23/22 05/14/22 Miranda Queen [facility] [address] [place] [address] Assigned MTM Pharmacist 04/07/22 05/14/22 [place] [address] [place] [address] Assigned PCP 05/15/22 Katiana Read MD [address] 200 [place] [address] Assigned Endocrinology Provider 06/19/22 Meme Singleton[place] PhD [address] [place] [address] Assigned Behavioral Health Provider 07/03/22 12/31/22 Deena Garza APRN CNP [address] [place] [address] Assigned Pain Medication Provider 07/19/22 10/29/22 [place] [address] [address] [place] [place] [address] Nurse Practitioner Nurse Practitioner 10/18/22 Elham Stack, [facility] [address] [place], [place] [address] Pharmacist Pharmacist 10/19/22 Emerita Potter, [facility] Clinic Chief Specialist Leed Grain Cleaner - Clinical 10/29/22 11/02/22 [place] [address] [address] [place] [address] Assigned Pain Medication Provider 10/30/22 12/03/22 Michelle Guzman DPM, Podiatry/Foot and Ankle Surgery [address] [place] [address] Assigned Musculoskeletal Provider 10/16/22 04/08/23 [place] [address] [place] [address] Assigned Pain Medication Provider 12/04/22 04/01/23 [place] [address] [address] [place] [address] Nurse Practitioner Nurse Practitioner 01/17/23 01/17/23 Aubrey Jones MD [address] [place] [address] Cardiovascular Disease 03/28/23 Blanquita Morales Hand Candy Dipper Diabetes Education 04/25/23 Aubrey Jnoes MD [address] [place] [address] Assigned Heart and Vascular Provider 05/07/23 documented as of this encounter
--- OUTSIDE RECORDS SUMMARY | 2023-08-03 10:11 | XMS_ITS | Encounter Summary ---
Author Name Unknown Organization [facility] Address [address] [place] [address]. [place] [address] Care Team Providers Care Tacking Stitch Remover Name Role Phone Len Adhikari MD Primary Care Provider Jovany Gonzalez MD Unavailable CrissyStaci jeong ARCHITECTURAL ASSOCIATE Unavailable [phone] Len Adhikari MD Unavailable Reanna Smith RD Unavailable Katiana Read MD Unavailable [phone] Jese Doyle MD Unavailable [phone] Roshni Nascimento RN Unavailable Unavailable Kiet Swain MD Unavailable [phone] Winsome Pike APRN COGNOS ANALYST Unavailable +[phone] Tori Hines [facility] Unavailable Miranda Queen [facility] Unavailable Unavailable Winsome Pike APRN COGNOS ANALYST Unavailable [phone] Marisel Armando MD Unavailable Marisel Armando MD Unavailable Inderjit Ugalde MD Unavailable [phone] Wesley Barrett MD Unavailable [phone] Charles Jaramillo PA-C Unavailable [phone] Miranda Queen [facility] Unavailable Unavailable Leeann Rinaldi MD Unavailable Miranda Queen [facility] Unavailable Unavailable Dyan Fuentes MD Primary Care Provider [phone] Dyan Fuentes MD Unavailable [phone] Katiana Read MD Unavailable +[phone] Meme Singleton PhD Unavailable +[phone] Deena Garza DRINK BOX MECHANIC COGNOS ANALYST Unavailable +[phone] Mary Del Cid NP Unavailable + [phone] Elham Stack [facility] Unavailable [phone] Emerita Potter GRAIN II FARMWORKER Unavailable +[phone] Mary Del Cid NP Unavailable + [phone] Michelle Guzman DPM, Podiatry /Foot and Ankle Surgery Unavailable Dyan Fuentes MD Unavailable +[phone] Mary Del Cid NP Unavailable + [phone] Aubrey Jones MD Unavailable [phone] Blanquita Morales Unavailable Unavailable Aubrey Jones MD Unavailable +[phone] Encounter Details Date Type Department Care Team (Late st Contact Info) Description 04/03/2021 [facility] [place] [facility] [address] [place] [address] Roshni Nascimento, RN Social History Tobacco [...] you attend chur ch or christian services? Never 09/20/2020 Do you belong to [...] [facility] Health - Occupational [...] have Coronavirus / COVID-19? No / Unsure 04/06/2021 12:20 PM CDT documented as of this encounter Plan of Treatment Upcoming Encounters Date Type Department Care Team (Late st Contact Info) Description 08/18/2023 3:00 PM TERRITORY SALES CONSULTANT Office Visit [facility] [address] [place] [address] Katiana Read MD [address] [place], [place] [address] documented as of this encounter Visit Diagnoses [...] documented as of this encounter Care Teams Tacking Stitch Remover Relationship Specialty Start Date End Date Len Adhikari MD PCP - General Family Practice 11/08/16 05/09/22 [place] [address] [place] [address] PCP - General Family Medicine 05/18/22 Jovany Gonzalez MD [facility] [address] [facility] 605 [place], [place] [address] Orthopedics 02/15/17 Staci Woodward, ARCHITECTURAL ASSOCIATE [facility] [address] [place], [place] [address] Nurse Practitioner Nurse Practitioner Psych/Mental Health 05/10/17 [place] [address] [place] [address] Assigned PCP 11/14/16 01/22/[address] [facility] [address] [place] [address] Rugby League Footballer Dietitian, Registered 07/25/19 Katiana Read MD [address] [place] [address] 814650 Assigned Endocrinology Provider 05/02/20 08/01/21 Jese Doyle MD [address] [place] [address] 011985 Assigned Pulmonology Provider 05/02/20 04/11/21 Roshni Nascimento, RN Personal Advocate & Liaison (PAL) Family Medicine 08/18/20 Kiet Swain MD [address] [place] [address] 734194 Referring Physician Psychiatry 09/19/20 Winsome Pike APRN COGNOS ANALYST [address] [place] [address] [phone] Nurse Practitioner Psychiatry 09/19/20 Tori Hines, [facility] [address] [place] [address] 257604 Research Animal Facility Supervisor Research Animal Facility Supervisor - Clinical 09/19/20 Miranda Queen [facility] [address] [place] [address] Pharmacist Pharmacist 11/12/20 Winsome Pike APRN COGNOS ANALYST [address] [place] [address] 484504 Assigned Behavioral Health Provider 01/04/21 07/02/22 Marisel Armando MD [address] [place] [address] 937415 Gastroenterology 02/05/21 Marisel Armando MD [address] [place] [address] Assigned Gastroenterology Provider 03/08/21 12/24/22 Inderjit Ugalde MD [address] [place] [address] Assigned Surgical Provider 02/15/21 08/20/22 Wesley Barrett MD 420 [facility] 96 [place] [address] Assigned Neuroscience Provider 05/10/21 Charles Jaramillo PA-C 6545 [facility] 450 [place] [address] Assigned Musculoskeletal Provider 04/26/21 10/15/22 Miranda Queen [facility] [address] [place] [address] Assigned MTM Pharmacist 12/05/21 03/26/22 [place] [address] [place] [address] Assigned PCP 01/23/22 05/14/22 Miranda Queen [facility] [address] [place] [address] Assigned MTM Pharmacist 04/07/22 05/14/22 [place] [address] [place] [address] Assigned PCP 05/15/22 Katiana Read MD [address] [place] [address] Assigned Endocrinology Provider 06/19/22 [place] [address] [address] [place] [address] Assigned Behavioral Health Provider 07/03/22 12/31/22 Deena Garza APRN COGNOS ANALYST [address] [place] [address] Assigned Pain Medication Provider 07/19/22 10/29/22 Mary Del Cid, RAFAEL [address] [address] [place] [address] Nurse Practitioner Nurse Practitioner 10/18/22 Elham Stack, [facility] [address] [place] [address] Pharmacist Pharmacist 10/19/22 Emerita Potter, [facility] Clinic Shoe Associate Research Animal Facility Supervisor - Clinical 10/29/22 11/02/22 [place] [address] [address] [place] [address] Assigned Pain Medication Provider 10/30/22 12/03/22 Michelle Guzman DPM, Podiatry/Foot and Ankle Surgery [address] [facility] [place] [address] Assigned Musculoskeletal Provider 10/16/22 04/08/23 [place] [address] [place] [address] Assigned Pain Medication Provider 12/04/22 04/01/23 [place] [address] [address] [place] [address] Nurse Practitioner Nurse Practitioner 01/17/23 01/17/23 Aubrey Jones MD [address] [place] [address] Cardiovascular Disease 03/28/23 Blanquita Morales Rugby League Footballer Diabetes Education 04/25/23 Aubrey Jones MD [address] [place] [address] Assigned Heart and Vascular Provider 05/07/23 documented as of this encounter
--- OUTSIDE RECORDS SUMMARY | 2023-08-03 10:11 | XMS_ITS | Encounter Summary ---
Author Name Unknown Organization [place] Address [address] [place] [address]. [place] [address] Care Team Providers Care Blintze Roller Name Role Phone Len Adhikari MD Primary Care Provider Jovany Gonzalez MD Unavailable CrissyStaci jeong SLITTER SCORER CUT OFF OPERATOR Unavailable [phone] Len Adhikari MD Unavailable Reanna Smith RD Unavailable Katiana Read MD Unavailable [phone] Jese Doyle MD Unavailable +[phone] Roshni Nascimento RN Unavailable Unavailable Kiet Swain MD Unavailable [phone] Winsome Pike APRN PADDING GLUER Unavailable +[phone] Tori Hines [facility] Unavailable Miranda Queen [facility] Unavailable Unavailable Winsome Pike APRN PADDING GLUER Unavailable [phone] Marisel Armando MD Unavailable Marisel Armando MD Unavailable Inderjit Ugalde MD Unavailable [phone] Wesley Barrett MD Unavailable +[phone] Charles Jaramillo PA-C Unavailable [phone] Miranda Queen [facility] Unavailable Unavailable Leeann Rinaldi MD Unavailable Miranda Queen [facility] Unavailable Unavailable Dyan Fuentes MD Primary Care Provider [phone] Dyan Fuentes MD Unavailable [phone] Katiana Read MD Unavailable +[phone] Meme Singleton PhD Unavailable +[phone] Deena Garza EXERCISE MANAGER PADDING GLUER Unavailable +[phone] Mary Del Cid NP Unavailable + [phone] Elham Stack [facility] Unavailable +[phone] Emerita Potter CORNER TRIMMER OPERATOR Unavailable +[phone] Mary Del Cid NP Unavailable + [phone] Michelle Guzman DPM, Podiatry /Foot and Ankle Surgery Unavailable Dyan Fuentes MD Unavailable +[phone] Mary Del Cid NP Unavailable + [phone] Aubrey Jones MD Unavailable [phone] Blanquita Morales Unavailable Unavailable Aubrey Jones MD Unavailable +[phone] Encounter Details Date Type Department Care Team (Late st Contact Info) Description 04/03/2021 [facility] Medical Advice [facility] [address] [place] [address] Roshni Nascimento, RN Social History [...] often do you attend chur ch or taoist services? Never 09/20/2020 Do you belong to [...] 02/02/2021 [facility] - Occupational [...] st Contact Info) Description 08/18/2023 3:00 PM ARCHIVIST MILITARY HISTORY Office Visit [facility] [address] [place] [address] Katiana Read MD [address] [place], [place] 6[address] documented as of this encounter Visit Diagnoses [...] documented as of this encounter Care Teams Blintze Roller Relationship Specialty Start Date End Date Len Adhikari MD PCP - General Family Practice 11/08/16 05/09/22 [place] [address] [place] [address] PCP - General Family Medicine 05/18/22 Jovany Gonzalez MD [facility] 6600 [facility] [address] [place], [place] 8764[address] Orthopedics 02/15/17 Staci Woodward, SLITTER SCORER CUT OFF OPERATOR [facility] [address] [place], [place] [address] Nurse Practitioner Nurse Practitioner Psych/Mental Health 05/10/17 [place] [address] [place] [address] Assigned PCP 11/14/16 01/22/[address] [facility] [address] [place] [address] Rail Flaw Detector Operator Dietitian, Registered 07/25/19 Katiana Read MD [address] [place] [address] 926600 Assigned Endocrinology Provider 05/02/20 08/01/21 Jese Doyle MD [address] [place] [address] 002005 Assigned Pulmonology Provider 05/02/20 04/11/21 Roshni Nascimento, RN Personal Advocate & Liaison (PAL) Family Medicine 08/18/20 Kiet Swain MD [address] [place] [address] 740914 Referring Physician Psychiatry 09/19/20 Winsome Pike APRN PADDING GLUER [address] [place] [address] 290894 Nurse Practitioner Psychiatry 09/19/20 Tori Hines, [facility] [address] [place] [address] [phone] Corporate Strategy Analyst Corporate Strategy Analyst - Clinical 09/19/20 Miranda Queen [facility] [address] [place] [address] Pharmacist Pharmacist 11/12/20 Winsome Pike APRN PADDING GLUER [address] [place] [address] 743804 Assigned Behavioral Health Provider 01/04/21 07/02/22 Marisel Armando MD [address] [place] [address] 537545 Gastroenterology 02/05/21 Marisel Armando MD [address] [place] [address] Assigned Gastroenterology Provider 03/08/21 12/24/22 Inderjit Ugalde MD [address] [place] [address] Assigned Surgical Provider 02/15/21 08/20/22 Wesley Barrett MD 420 [facility] 96 [place] [address] Assigned Neuroscience Provider 05/10/21 Charles Jaramillo PA-C 6545 [facility] [address] [place] [address] Assigned Musculoskeletal Provider 04/26/21 10/15/22 Miranda Queen [facility] [address] [place] [address] Assigned MTM Pharmacist 12/05/21 03/26/22 [place] [address] [place] [address] Assigned PCP 01/23/22 05/14/22 Miranda Queen [facility] [address] [place] [address] Assigned MTM Pharmacist 04/07/22 05/14/22 [place] [address] [place] [address] Assigned PCP 05/15/22 Katiana Read MD [address] [place] [address] Assigned Endocrinology Provider 06/19/22 [place] [address] [place] [address] Assigned Behavioral Health Provider 07/03/22 12/31/22 Deena Garza APRN PADDING GLUER [address] [place] [address] Assigned Pain Medication Provider 07/19/22 10/29/22 Mary Del Cid, RAFAEL [address] [address] [place] [address] Nurse Practitioner Nurse Practitioner 10/18/22 Elham Stack, [facility] [address] [place] [address] Pharmacist Pharmacist 10/19/22 Emerita Potter, [facility] Clinic Steward/Stewardess Dining Room Corporate Strategy Analyst - Clinical 10/29/22 11/02/22 [place] [address] [address] [place] [address] Assigned Pain Medication Provider 10/30/22 12/03/22 Michelle Guzman DPM, Podiatry/Foot and Ankle Surgery [address] [place] [facility] [place] [address] Assigned Musculoskeletal Provider 10/16/22 04/08/23 [place] [address] [place] [address] Assigned Pain Medication Provider 12/04/22 04/01/23 [place] [address] [address] [place] [address] Nurse Practitioner Nurse Practitioner 01/17/23 01/17/23 Aubrey Jones MD [address] [place] [address] Cardiovascular Disease 03/28/23 Blanquita Morales Rail Flaw Detector Operator Diabetes Education 04/25/23 Aubrey Jones MD [address] [place] [address] Assigned Heart and Vascular Provider 05/07/23 documented as of this encounter
--- OUTSIDE RECORDS SUMMARY | 2023-08-03 10:11 | XMS_ITS | Encounter Summary ---
Author Name Unknown Organization [place] [facility] Address [address] [place] [address]. [place] [address] Care Team Providers Care Bindery Production Manager Name Role Phone Len Adhikari MD Primary Care Provider Jovany Gonzalez MD Unavailable CrissyStaci jeong COMMERCIAL COORDINATOR Unavailable [phone] Len Adhikari MD Unavailable Reanna Smith RD Unavailable Katiana Read MD Unavailable [phone] Jese Doyle MD Unavailable [phone] Roshni Nascimento RN Unavailable Unavailable Kiet Swain MD Unavailable [phone] Winsome Pike APRN LETTER STAMPING MACHINE OPERATOR Unavailable [phone] Tori Hines [facility] Unavailable Miranda Queen [facility] Unavailable Unavailable Winsome Pike APRN LETTER STAMPING MACHINE OPERATOR Unavailable [phone] Marisel Armando MD Unavailable Marisel Armando MD Unavailable Inderjit Ugalde MD Unavailable [phone] Wesley Barrett MD Unavailable [phone] Charles Jaramillo PA-C Unavailable [phone] Miranda Queen [facility] Unavailable Unavailable Leeann Rinaldi MD Unavailable Miranda Queen [facility] Unavailable Unavailable Dyan Fuentes MD Primary Care Provider [phone] Dyan Fuentes MD Unavailable [phone] Katiana Read MD Unavailable [phone] Meme Singleton PhD Unavailable [phone] Deena Garza LIFE SCIENCES MANAGER LETTER STAMPING MACHINE OPERATOR Unavailable +[phone] Mary Del Cid COMMERCIAL COORDINATOR Unavailable + [phone] Elham Stack [facility] Unavailable [phone] Emerita Potter HANDS AND DIAL INSPECTOR Unavailable +[phone] Mary Del Cid NP Unavailable [phone] Michelle Guzman DPM, Podiatry /Foot and Ankle Surgery Unavailable Dyan Fuentes MD Unavailable [phone] Mary Del Cid NP Unavailable [phone] Aubrey Jones MD Unavailable [phone] Blanquita Morales Unavailable Unavailable Aubrey Jones MD Unavailable [phone] Reason for Visit * Reason Onset Date Comments Outreach 03/06/2021 PAL Encounter Details Date Type Department Care Team (Late st Contact Info) Description 03/06/2021 MyC Medical Advice [facility] [id number] [place] [address] [place] [address] [place] [address] Outreach (PAL) Social History Tobacco Use Types Packs/Day Years [...] How often do you attend chur or latter-day services? Never 09/20/2020 Do you belong to [...] Answer Date Recorded PHQ-2 Score 2 02/02/2021 [facility] Health - Occupational Stress Questionnaire Answer Date [...] in a care home (including now)? No 09/20/2020 Education Answer Date [...] have Coronavirus / COVID-19? No / Unsure 03/06/2021 12:48 PM CDT documented as of this encounter Plan of Treatment Upcoming Encounters Date Type Department Care Team (Late st Contact Info) Description 08/18/2023 3:00 PM FIELD AGENT Office Visit [facility] [address] [place] [address] Katiana Read MD [address] [place] [address] documented as of this encounter [...] documented as of this encounter Care Teams Bindery Production Manager Relationship Specialty Start Date End Date Len Adhikari MD PCP - General Family Practice 11/08/16 05/09/22 [place] [address] [place] [address] PCP - General Family Medicine 05/18/22 Jovany Gonzalez MD [facility] 6600 [facility] [address] [place], [place] 508315 Orthopedics 02/15/17 Staci Woodward NP [facility] [address] [place], [place] [phone] Nurse Practitioner Nurse Practitioner Psych/Mental Health 05/10/17 [place] [address] [place] [address] Assigned PCP 11/14/16 01/22/[address] [facility] [address] [place] [address] Extractions Technician Dietitian, Registered 07/25/19 Katiana Read MD [address] [facility] 200 [place], [place] [address] Assigned Endocrinology Provider 05/02/20 08/01/21 Jese Doyle MD [address]09 [place], [place] 7038[address] Assigned Pulmonology Provider 05/02/20 04/11/21 Roshni Nascimento RN Personal Advocate & Liaison (PAL) Family Medicine 08/18/20 Kiet Swain MD [address] [place] [address] 097734 Referring Physician Psychiatry 09/19/20 Winsome Pike APRN LETTER STAMPING MACHINE OPERATOR [address] [place] [address] [phone] Nurse Practitioner Psychiatry 09/19/20 Tori Hines [facility] [address] [place] [address] [phone] Physical Therapy Supervisor Physical Therapy Supervisor - Clinical 09/19/20 Miranda Queen [facility] [address] [place] [address] Pharmacist Pharmacist 11/12/20 Winsome Pike APRN LETTER STAMPING MACHINE OPERATOR [address] [place] [address] [phone] Assigned Behavioral Health Provider 01/04/21 07/02/22 Marisel Armando MD [address] [place] [address] Gastroenterology 02/05/21 Marisel Armando MD [address] [place] [address] Assigned Gastroenterology Provider 03/08/21 12/24/22 Inderjit Ugalde MD [address] [facility] 300 [place] [address] Assigned Surgical Provider 02/15/21 08/20/22 Wesley Barrett MD 420 [facility] 96 [place] [address] Assigned Neuroscience Provider 05/10/21 Charles Jaramillo PA-C [address] [address] Assigned Musculoskeletal Provider 04/26/21 10/15/22 Miranda Queen [facility] [address] [place] [address] Assigned MTM Pharmacist 12/05/21 03/26/22 [place] [address] [place] [address] Assigned PCP 01/23/22 05/14/22 Miranda Queen [facility] [address] [place] [address] Assigned MTM Pharmacist 04/07/22 05/14/22 D[place] [address] [place] [address] Assigned PCP 05/15/22 Katiana Read MD [address] [facility] 200 [place] [address] Assigned Endocrinology Provider 06/19/22 [place] PhD [address] [place] [address] Assigned Behavioral Health Provider 07/03/22 12/31/22 Deena Garza APRN LETTER STAMPING MACHINE OPERATOR [address] [place] [address] Assigned Pain Medication Provider 07/19/22 10/29/22 Mary Del Cid, RAFAEL [address] [place] [address] Nurse Practitioner Nurse Practitioner 10/18/22 Elham Stack, [facility] [address] [place] [address] Pharmacist Pharmacist 10/19/22 Emerita Potter, [facility] Clinic Supervisor Printing Shop Physical Therapy Supervisor - Clinical 10/29/22 11/02/22 [place] [address] [address] [place] [address] Assigned Pain Medication Provider 10/30/22 12/03/22 Michelle Guzman, DPM, Podiatry/Foot and Ankle Surgery [address] [place] [address] Assigned Musculoskeletal Provider 10/16/22 04/08/23 [place] [address] [place] [address] Assigned Pain Medication Provider 12/04/22 04/01/23 [place] [address] [place] [address] Nurse Practitioner Nurse Practitioner 01/17/23 01/17/23 Aubrey Jones MD [address] [place] [address] Cardiovascular Disease 03/28/23 Blanquita Morales Extractions Technician Diabetes Education 04/25/23 Aubrey Jones MD [address] [place] [address] Assigned Heart and Vascular Provider 05/07/23 documented as of this encounter
--- OUTSIDE RECORDS SUMMARY | 2023-08-03 10:11 | XMS_ITS | Encounter Summary ---
Author Name Unknown Organization [facility] Address [address] [place] [address]. [place] [address] Care Team Providers Care Microelectronics Assembler Name Role Phone Len Adhikari MD Primary Care Provider Jovany Gonzalez MD Unavailable CrissyStaci jeong DIRECTOR OF EVENT MARKETING Unavailable [phone] Len Adhikari MD Unavailable Reanna Smith [address] Unavailable [phone] Katiana Read MD Unavailable [phone] Jese Doyle MD Unavailable [phone] Roshni Nascimento RN Unavailable Unavailable Kiet Swain MD Unavailable [phone] Winsome Pike APRN GLAZE SUPERVISOR Unavailable +[phone] Tori Hines [facility] Unavailable Miranda Queen [facility] Unavailable Unavailable Winsome Pike APRN GLAZE SUPERVISOR Unavailable [phone] Marisel Armando MD Unavailable Marisel Armando MD Unavailable Inderjit Ugalde MD Unavailable [phone] Wesley Barrett MD Unavailable [phone] Charles Jaramillo PA-C Unavailable [phone] Miranda Queen [facility] Unavailable Unavailable Leeann Rinaldi MD Unavailable Miranda Queen [facility] Unavailable Unavailable Dyan Fuentes MD Primary Care Provider + [phone] Dyan Fuentes MD Unavailable [phone] Katiana Read MD Unavailable [phone] Meme Singleton PhD Unavailable [phone] Deena Garza OUTBOARD SYSTEM OPERATOR GLAZE SUPERVISOR Unavailable [phone] Mary Del Cid DIRECTOR OF EVENT MARKETING Unavailable +[phone] Elham Stack [facility] Unavailable [phone] Emerita Potter PASSENGER INTERLINE CLERK Unavailable [phone] Mary Del Cid NP Unavailable [phone] Michelle Guzman DPM, Podiatry /Foot and Ankle Surgery Unavailable Dyan Fuentes MD Unavailable [phone] Mary Del Cid NP Unavailable +[phone] Aubrey Jones MD Unavailable [phone] Blanquita Morales Unavailable Unavailable Aubrey Jones MD Unavailable +[phone] Reason for Visit * Reason Comments Medication Refill Encounter Details Date Type Department Care Team (Late st Contact Info) Description 04/09/2021 Refill [facility] [address] [place] [address] Katiana Read MD [address] [place] [address] Medication Refill Social History Tobacco [...] How often do you attend chur or anabaptism services? Never 09/20/2020 Do you belong to [...] Answer Date Recorded PHQ-2 Score 2 02/02/2021 [facility] - Occupational Stress Questionnaire Answer Date [...] in a senior care (including now)? No 09/20/2020 Education Answer Date [...] have Coronavirus / COVID-19? No / Unsure 04/08/2021 5:59 PM CDT documented as of this encounter Miscellaneous Notes * Telephone Encounter - Rafat Chavarria RN - 04/10/2021 2:22 PM CDT [facility] Protocol. documented in this encounter Plan of Treatment Upcoming Encounters Date Type Department Care Team (Late st Contact Info) Description 08/18/2023 3:00 PM OPERATION RESEARCH ANALYST Office Visit [facility] [address] [place] [address] Katiana Read MD [address] [place], [place] [address] documented as of this encounter Visit Diagnoses [...] documented as of this encounter Care Teams Microelectronics Assembler Relationship Specialty Start Date End Date Len Adhikari MD PCP - General Family Practice 11/08/16 05/09/22 [place] [address] [place] [address] PCP - General Family Medicine 05/18/22 Jovany Gonzalez MD [facility] 6600 [facility] 605 [place] [address] Orthopedics 02/15/17 Staci Woodward NP [facility] [address] [place] [address] Nurse Practitioner Nurse Practitioner Psych/Mental Health 05/10/17 [place] [address] [place] [address] Assigned PCP 11/14/16 01/22/[address] [facility] [address] [place] [address] Bed Maker Dietitian, Registered 07/25/19 Katiana Read MD [address] [place] [address] Assigned Endocrinology Provider 05/02/20 08/01/21 Jese Doyle MD [address] [place], [place] 4[address] Assigned Pulmonology Provider 05/02/20 04/11/21 Roshni Nascimento, RN Personal Advocate & Liaison (PAL) Family Medicine 08/18/20 Kiet Swain MD [address] [place] [address] 597374 Referring Physician Psychiatry 09/19/20 Winsome Pike APRN GLAZE SUPERVISOR [address] [place] [address] Nurse Practitioner Psychiatry 09/19/20 Tori Hines, [facility]0 [place] [address] Laboratory Mechanical Technician Laboratory Mechanical Technician - Clinical 09/19/20 Miranda Queen [facility] [address] [place] [address] Pharmacist Pharmacist 11/12/20 Winsome Pike APRN CNP [address] [address] Assigned Behavioral Health Provider 01/04/21 07/02/22 Marisel Armando MD [address] [place] [address] Gastroenterology 02/05/21 Marisel Armando MD [address] [place] [address] Assigned Gastroenterology Provider 03/08/21 12/24/22 Inderjit Ugalde MD [address] [address] Assigned Surgical Provider 02/15/21 08/20/22 Wesley Barrett MD [address] [place] [address] Assigned Neuroscience Provider 05/10/21 Charles Jaramillo PA-C [address] [address] Assigned Musculoskeletal Provider 04/26/21 10/15/22 Miranda Queen [facility] [address] [place] [address] Assigned MTM Pharmacist 12/05/21 03/26/22 [place] [address] [place] [address] Assigned PCP 01/23/22 05/14/22 Miranda Queen, [facility] [address] [place] [address] Assigned MTM Pharmacist 04/07/22 05/14/22 [place] [address] [place] [address] Assigned PCP 05/15/22 Katiana Read MD [address] [address] Assigned Endocrinology Provider 06/19/22 [place] [address] [place] 393587 Assigned Behavioral Health Provider 07/03/22 12/31/22 Deena Garza APRN GLAZE SUPERVISOR [address] [place] 5[address]87 Assigned Pain Medication Provider 07/19/22 10/29/22 Mary Del Cid, RAFAEL [address] [place] 86[address]57 Nurse Practitioner Nurse Practitioner 10/18/22 Elham Stack, [facility] [address] [facility] [place] [address] Pharmacist Pharmacist 10/19/22 Emerita Potter, [facility] Clinic Sales Strategy Manager Laboratory Mechanical Technician - Clinical 10/29/22 11/02/22 Mary Del Cid, RAFAEL [address] [address] Assigned Pain Medication Provider 10/30/22 12/03/22 Michelle Guzman DPM, Podiatry/Foot and Ankle Surgery [address] [place] [address] Assigned Musculoskeletal Provider 10/16/22 04/08/23 [place] [address] [address] Assigned Pain Medication Provider 12/04/22 04/01/23 [place] [address] [address] [address] Nurse Practitioner Nurse Practitioner 01/17/23 01/17/23 Aubrey Jones MD [address] [place] [address] Cardiovascular Disease 03/28/23 Blanquita Morales Bed Maker Diabetes Education 04/25/23 Aubrey Jones MD [address] [place] [address] Assigned Heart and Vascular Provider 05/07/23 documented as of this encounter
--- OUTSIDE RECORDS SUMMARY | 2023-08-03 10:11 | XMS_ITS | Encounter Summary ---
Author Name Unknown Organization [place] Address [address] [place] [address]. [place] [address] Care Team Providers Care Flaker Tender Name Role Phone Len Adhikari MD Primary Care Provider Jovany Gonzalez MD Unavailable CrissyStaci jeong SUPERVISOR REFRACTORY PRODUCTS Unavailable [phone] Len Adhikari MD Unavailable [phone] Unavailable +[phone] Katiana Read MD Unavailable [phone] Jese Doyle MD Unavailable +[phone] Roshni Nascimento RN Unavailable Unavailable Kiet Swain MD Unavailable [phone] Winsome Pike APRN WEARING APPAREL PRESSER Unavailable +[phone] Tori Hines [facility] Unavailable Miranda Queen [facility] Unavailable Unavailable Winsome Pike APRN WEARING APPAREL PRESSER Unavailable +[phone] Marisel Armando MD Unavailable Marisel Armando MD Unavailable Inderjit Ugalde MD Unavailable [phone] Wesley Barrett MD Unavailable +[phone] Charles Jaramillo PA-C Unavailable [phone] Miranda Queen [facility] Unavailable Unavailable Leeann Rinaldi MD Unavailable Miranda Queen [facility] Unavailable Unavailable Dyan Fuentes MD Primary Care Provider [phone] Dyan Fuentes MD Unavailable [phone] Katiana Read MD Unavailable [phone] Meme Singleton PhD Unavailable +[phone] Deena Garza FLUME RIDE OPERATOR WEARING APPAREL PRESSER Unavailable +[phone] Mary Del Cid SUPERVISOR REFRACTORY PRODUCTS Unavailable + [phone] Elham Stack [facility] Unavailable +[phone] Emerita Potter NURSE PRACTITIONER PHYSICIAN ASSISTANT Unavailable +[phone] Mary Del Cid NP Unavailable + [phone] Michelle Guzman DPM, Podiatry /Foot and Ankle Surgery Unavailable Dyan Fuentes MD Unavailable [phone] Mary Del Cid NP Unavailable [phone] Aubrey Jones MD Unavailable [phone] Blanquita Morales Unavailable Unavailable Aubrey Jones MD Unavailable [phone] Encounter Details Date Type Department Care Team (Late st Contact Info) Description 03/29/2021 MyC Medical Advice [facility] [address] [place] [address] [place] [address] [place] [address] Social History Tobacco Use Types Packs/Day Years [...] often do you attend chur ch or rastafarian services? Never 09/20/2020 Do you belong to [...] Answer Date Recorded PHQ-2 Score 2 02/02/2021 [facility] Answer Date Recorded [...] have Coronavirus / COVID-19? No / Unsure 03/31/2021 12:26 PM CDT documented as of this encounter Plan of Treatment Upcoming Encounters Date Type Department Care Team (Late st Contact Info) Description 08/18/2023 3:00 PM COATING MACHINE FEEDER Office Visit [facility] [address] [place] [address] Katiana Read MD [address] [place] [address] documented as of this encounter Visit Diagnoses [...] documented as of this encounter Care Teams Flaker Tender Relationship Specialty Start Date End Date Len Adhikari MD PCP - General Family Practice 11/08/16 05/09/22 [place] [address] [place] [address] PCP - General Family Medicine 05/18/22 Jovany Gonzalez MD [facility] [address] [facility] [address] [place], [place] 68[address] Orthopedics 02/15/17 Staci Woodward, SUPERVISOR REFRACTORY PRODUCTS [facility] [address] [place], [place] [address] Nurse Practitioner Nurse Practitioner Psych/Mental Health 05/10/17 [place] [address] [facility] [place] [address] Assigned PCP 11/14/16 01/22/22 Reanna Smith, LA[facility]A [facility] [address] [place] [address] Development Technician Dietitian, Registered 07/25/19 Katiana Read MD [address] [place] [address] Assigned Endocrinology Provider 05/02/20 08/01/21 Jese Doyle MD [address] [place], [place] [address] Assigned Pulmonology Provider 05/02/20 04/11/21 Roshni Nascimento, RN Personal Advocate & Liaison (PAL) Family Medicine 08/18/20 Kiet Swain MD [address] [place] [address] 450324 Referring Physician Psychiatry 09/19/20 Winsome Pike APRN WEARING APPAREL PRESSER [address] [place] [address] [phone] Nurse Practitioner Psychiatry 09/19/20 Tori Hines [facility] [address] [place] [phone] Registry Officer Court Registry Officer - Clinical 09/19/20 Miranda Queen [facility] [address] [place] [address] Pharmacist Pharmacist 11/12/20 Winsome Pike APRN WEARING APPAREL PRESSER [address] [place] [address] [phone] Assigned Behavioral Health Provider 01/04/21 07/02/22 Marisel Armando MD [address] [place] [address] Gastroenterology 02/05/21 Marisel Armando MD [address] [place] [address] Assigned Gastroenterology Provider 03/08/21 12/24/22 Inderjit Ugalde MD [address] [facility] [address] [place] [address] Assigned Surgical Provider 02/15/21 08/20/22 Wesley Barrett MD [address] [place] [address] 96 [place] [address] Assigned Neuroscience Provider 05/10/21 Charles Jaramillo PA-C [address] [address] Assigned Musculoskeletal Provider 04/26/21 10/15/22 Miranda Queen [facility] [address] [place] [address] Assigned MTM Pharmacist 12/05/21 03/26/22 [place] [address] [place] [address] Assigned PCP 01/23/22 05/14/22 Miranda Queen [facility] [address] [place] [address] Assigned MTM Pharmacist 04/07/22 05/14/22 [place] [address] [place] [address] Assigned PCP 05/15/22 Katiana Read MD [address] [facility] [address] [place], [place] [address] Assigned Endocrinology Provider 06/19/22 [place] [address] [place] [address] Assigned Behavioral Health Provider 07/03/22 12/31/22 Deena Garza, FLUME RIDE OPERATOR WEARING APPAREL PRESSER [address] [place] [address] Assigned Pain Medication Provider 07/19/22 10/29/22 Mary Del Cid, RAFAEL [address] [facility] [place] [address] Nurse Practitioner Nurse Practitioner 10/18/22 Elham Stack, [facility] [address] [facility] [place], [place] [address] Pharmacist Pharmacist 10/19/22 Emerita Potter, [facility] Clinic Rn Women Services Court Registry Officer - Clinical 10/29/22 11/02/22 [place] [address] [place] [place] [address] Assigned Pain Medication Provider 10/30/22 12/03/22 Michelle Guzman, DPM, Podiatry/Foot and Ankle Surgery [address] [place] [address] Assigned Musculoskeletal Provider 10/16/22 04/08/23 [place] [address] [place] [address] Assigned Pain Medication Provider 12/04/22 04/01/23 [place] [address] [address] [place] [address] Nurse Practitioner Nurse Practitioner 01/17/23 01/17/23 Aubrey Jones MD [address] [place] [address] Cardiovascular Disease 03/28/23 Blanquita Morales Development Technician Diabetes Education 04/25/23 Aubrey Jones MD [address] [place] [address] Assigned Heart and Vascular Provider 05/07/23 documented as of this encounter
--- OUTSIDE RECORDS SUMMARY | 2023-08-03 10:11 | XMS_ITS | Encounter Summary ---
Author Name Unknown Organization [place] Address [address] [place] [address]. [place] [address] Care Team Providers Care Door Slinger Name Role Phone Len Adhikari MD Primary Care Provider Jovany Gonzalez MD Unavailable CrissyStaci jeong PERFECT BINDER SETTER Unavailable [phone] Len Adhikari MD Unavailable Reanna Smith RD Unavailable Katiana Read MD Unavailable [phone] Jese Doyle MD Unavailable [phone] Roshni Nascimento RN Unavailable Unavailable Kiet Swain MD Unavailable [phone] Winsome Pike APRN MILLING MACHINIST Unavailable [phone] Tori Hines [facility] Unavailable Miranda Queen [facility] Unavailable Unavailable Winsome Pike APRN MILLING MACHINIST Unavailable [phone] Marisel Armando MD Unavailable Marisel Armando MD Unavailable Inderjit Ugalde MD Unavailable Wesley Barrett MD Unavailable [phone] Charles Jaramillo PA-C Unavailable [phone] Miranda Queen [facility] Unavailable Unavailable Leeann Rinaldi MD Unavailable Miranda Queen [facility] Unavailable Unavailable Dyan Fuentes MD Primary Care Provider [phone] Dyan Fuentes MD Unavailable [phone] Katiana Read MD Unavailable [phone] Meme Singleton PhD Unavailable +[phone] Deena Garza ANIMAL PATHOLOGIST MILLING MACHINIST Unavailable +[phone] Mary Del Cid NP Unavailable + [phone] Elham Stack [facility] Unavailable [phone] Emerita Potter MANAGER SHIP Unavailable [phone] Mary Del Cid NP Unavailable + [phone] Michelle Guzman DPM, Podiatry /Foot and Ankle Surgery Unavailable Dyan Fuentes MD Unavailable [phone] Mary Del Cid NP Unavailable [phone] Aubrey Jones MD Unavailable [phone] Blanquita Morales Unavailable Unavailable Aubrey Jones MD Unavailable [phone] Encounter Details Date Type Department Care Team (Late st Contact Info) Description 04/09/2021 Documentation Only INTERFACED REPORT Unknown, Provider Social [...] often do you attend chur ch or anabaptism services? Never 09/20/2020 Do you [...] PHQ-2 Score 2 02/02/2021 [facility] - Occupational [...] slept in a chcf (including now)? No 09/20/2020 Education Answer Date [...] st Contact Info) Description 08/18/2023 3:00 PM DESIGN ARCHITECT Office Visit [facility] [address] [facility] [address] [place] [address] Katiana Read MD [address] [address] [place] [address] documented as of this encounter Visit Diagnoses Not on filedocumented in this encounter Additional Health Concerns Infection Onset Date Last Indicated Resolved Time Rule Out C-difficile 10/14/2022 10/15/2022 023 12:33 AM CDT Rule Out C-difficile 10/15/2022 10/15/2022 023 5:39 AM CDT C-difficile 10/15/2022 10/27/202211/26/2022 11:4 0 PM CDT Rule Out C-difficile 10/26/2022 10/27/2022 023 2:14 AM CDT Rule Out C-difficile 12/05/2022 12/05/2022 023 9:44 AM CDT Assessment Noted Time PHQ-9 Depression Total Score: 12 021 4:21 PM CDT documented as of this encounter Care Teams Door Slinger Relationship Specialty Start Date End Date Len Adhikari MD PCP - General Family Practice 11/08/16 05/09/22 [place] [address] [place] [address] PCP - General Family Medicine 05/18/22 Jovany Gonzalez MD [facility] [address] [facility] 605 [place] [address] Orthopedics 02/15/17 Staci Woodward, PERFECT BINDER SETTER [place] [address] [place] [address] Nurse Practitioner Nurse Practitioner Psych/Mental Health 05/10/17 [place] [address] [facility] [place] [address] Assigned PCP 11/14/16 01/22/[address] [place] [address] [place] [address] Manufacturing Maintenance Technician Dietitian, Registered 07/25/19 Katiana Read MD [address] [facility] 200 [place] [address] Assigned Endocrinology Provider 05/02/20 08/01/21 Jese Doyle MD [address] [place] [address] 120725 Assigned Pulmonology Provider 05/02/20 04/11/21 Roshni Nascimento, RN Personal Advocate & Liaison (PAL) Family Medicine 08/18/20 Kiet Swain MD [address] [place] [address] [phone] Referring Physician Psychiatry 09/19/20 Winsome Pike APRN MILLING MACHINIST [address] [place] [address] 816474 Nurse Practitioner Psychiatry 09/19/20 Tori Hines [facility] [address] [place] [address] [phone] Graphic Arts Instructor Graphic Arts Instructor - Clinical 09/19/20 Miranda Queen [facility] [address] [place] [address] Pharmacist Pharmacist 11/12/20 Winsome Pike APRN MILLING MACHINIST [address] [place] [address] 447654 Assigned Behavioral Health Provider 01/04/21 07/02/22 Marisel Armando MD [address] [place] [address] 307295 Gastroenterology 02/05/21 Marisel Armando MD [address] [place] [address] Assigned Gastroenterology Provider 03/08/21 12/24/22 Inderjit Ugalde MD [address] [facility] 300 [place] [address] Assigned Surgical Provider 02/15/21 08/20/22 Wesley Barrett MD [address] [facility] 96 [place] [address] Assigned Neuroscience Provider 05/10/21 Charles Jaramillo PA-C 65[address] [facility] 450 [place] [address] Assigned Musculoskeletal Provider 04/26/21 10/15/22 [facility] [address] [place] [address] Assigned MTM Pharmacist 12/05/21 03/26/22 [place] [address] [place] [address] Assigned PCP 01/23/22 05/14/22 Mrianda Queen [facility] [address] [place] [address] Assigned MTM Pharmacist 04/07/22 05/14/22 [place] [address] [place] [address] Assigned PCP 05/15/22 Katiana Read MD [address] 200 [place] [address] Assigned Endocrinology Provider 06/19/22 [place] [address] [place] [address] Assigned Behavioral Health Provider 07/03/22 12/31/22 Deena Garza APRN MILLING MACHINIST [address] [place] [address] Assigned Pain Medication Provider 07/19/22 10/29/22 Mary Del Cid, RAFAEL [address] [place] [address] Nurse Practitioner Nurse Practitioner 10/18/22 Elham Stack, [facility] [address] [facility] [place], [place] [address] Pharmacist Pharmacist 10/19/22 Emerita Potter, [facility] Clinic Wax Blender Graphic Arts Instructor - Clinical 10/29/22 11/02/22 Mary Del Cid, RAFAEL [address] [place] [address] Assigned Pain Medication Provider 10/30/22 12/03/22 Michelle Guzman, DPM, Podiatry/Foot and Ankle Surgery [address] [place] [address] Assigned Musculoskeletal Provider 10/16/22 04/08/23 [place] [address] [place] [address] Assigned Pain Medication Provider 12/04/22 04/01/23 [place] [address] [place] [address] Nurse Practitioner Nurse Practitioner 01/17/23 01/17/23 Aubrey Jones MD [address] [place] [address] Cardiovascular Disease 03/28/23 Blanquita Morales Manufacturing Maintenance Technician Diabetes Education 04/25/23 Aubrey Jones MD [address] [place] [address] Assigned Heart and Vascular Provider 05/07/23 documented as of this encounter
--- OUTSIDE RECORDS SUMMARY | 2023-08-03 10:11 | XMS_ITS | Encounter Summary ---
Author Name Unknown Organization [place] Address [address] [place] [address]. [place] [address] Care Team Providers Care Warehouse Shipping Supervisor Name Role Phone Len Adhikari MD Primary Care Provider Jovany Gonzalez MD Unavailable CrissyStaci jeong HAT DESIGNER Unavailable [phone] Len Adhikari MD Unavailable Reanna Smith RD Unavailable Katiana Read MD Unavailable [phone] Jese Doyle MD Unavailable [phone] Roshni Nascimento RN Unavailable Unavailable Kiet Swain MD Unavailable [phone] Winsome Pike APRN MEDICATION SPECIALIST Unavailable [phone] Tori Hines [facility] Unavailable Miranda Queen [facility] Unavailable Unavailable Winsome Pike APRN MEDICATION SPECIALIST Unavailable [phone] Marisel Armando MD Unavailable Marisel Armando MD Unavailable Inderjit Ugalde MD Unavailable [phone] Wesley Barrett MD Unavailable [phone] Charles Jaramillo PA-C Unavailable [phone] Miranda Queen [facility] Unavailable Unavailable Leeann Rinaldi MD Unavailable Miranda Queen [facility] Unavailable Unavailable Dyan Fuentes MD Primary Care Provider [phone] Dyan Fuentes MD Unavailable [phone] Katiana Read MD Unavailable [phone] Meme Singleton PhD Unavailable [phone] Deena Garza POLICE STENOGRAPHER MEDICATION SPECIALIST Unavailable [phone] Mary Del Cid HAT DESIGNER Unavailable + [phone] Elham Stack [facility] Unavailable [phone] Emerita Potter WELDER AND FITTER Unavailable [phone] Mary Del Cid NP Unavailable [phone] Michelle Guzman DPM, Podiatry /Foot and Ankle Surgery Unavailable Dyna Fuentes MD Unavailable [phone] Mary Del Cid NP Unavailable [phone] Aubrey Jones MD Unavailable [phone] Blanquita Morales Unavailable Unavailable Aubrey Jones MD Unavailable [phone] Reason for Visit * Reason Onset Date Comments Refill Request 03/09/2021 risperiDONE (RIS PERDAL M-TABS) 0.5 MG ODT Encounter Details Date Type Department Care Team (Late st Contact Info) Description 03/09/2021 [facility] [address] [place] [address] [place] [address] [place] [address] Refill Request (risperiDONE (RISPERDAL M-TABS) 0.5 MG [...] often do you attend chur ch or buddhist services? Never 09/20/2020 Do you belong to [...] Answer Date Recorded PHQ-2 Score 2 02/02/2021 [facility] Occupat ional Health - [...] encounter Miscellaneous Notes * Telephone Encounter - Carmel Gongora RN - 03/09/2021 2:55 PM CDT Request for 90 days not appropriate Carmel Cantu RN * Telephone Encounter - Maggie White RRT - 03/09/2021 2:39 PM CDT PT REQUESTING 90 DAY SCRIPT PER INSURANCE documented in this encounter Plan of Treatment Upcoming Encounters Date Type Department Care Team (Late st Contact Info) Description 08/18/2023 3:00 PM HOMEOPATHIC DOCTOR Office Visit [facility] [address] [facility] [address] [place] [address] Katiana Read MD [address] [place], [place] [address] documented as of this encounter Visit Diagnoses [...] documented as of this encounter Care Teams Warehouse Shipping Supervisor Relationship Specialty Start Date End Date Len Adhikari MD PCP - General Family Practice 11/08/16 05/09/22 [place] [address] [place] [address] PCP - General Family Medicine 05/18/22 Jovany Gonzalez MD [facility] 66[address] [facility] 605 [place] [address] Orthopedics 02/15/17 Staci Woodward, HAT DESIGNER [place] [address] [place] [address] Nurse Practitioner Nurse Practitioner Psych/Mental Health 05/10/17 [place] [address] [place] [address] Assigned PCP 11/14/16 01/22/[address] [place] [address] [place] [address] Vacuum Tester Cans Dietitian, Registered 07/25/19 Katiana Read MD [address] [place] [address] 200 [place] [address] Assigned Endocrinology Provider 05/02/20 08/01/21 Jese Doyle MD 909 [place] [address] Assigned Pulmonology Provider 05/02/20 04/11/21 Roshni Nascimento, RN Personal Advocate & Liaison (PAL) Family Medicine 08/18/20 Kiet Swain MD 24[address] [facility] [address] [place], [place] [address] Referring Physician Psychiatry 09/19/20 Winsome Pike APRN MEDICATION SPECIALIST [facility] [address] 239424 Nurse Practitioner Psychiatry 09/19/20 Tori Hines, [facility] [address] [place], [place] 7924[address] Glove Former Glove Former - Clinical 09/19/20 Miranda Queen [facility] [address] [place] [address] Pharmacist Pharmacist 11/12/20 Winsome Pike APRN MEDICATION SPECIALIST [facility] [address] 290454 Assigned Behavioral Health Provider 01/04/21 07/02/22 Marisel Armando MD [address] [place] [address] 495525 Gastroenterology 02/05/21 Marisel Armando MD [address] [place] [address] 088695 Assigned Gastroenterology Provider 03/08/21 12/24/22 Inderjit Ugalde MD [address] [facility] 300 [place], [place] 4[address] Assigned Surgical Provider 02/15/21 08/20/22 Wesley Barrett MD [address] [place] [address] 502655 Assigned Neuroscience Provider 05/10/21 Charles Jaramillo PA-C [address] 651133 Assigned Musculoskeletal Provider 04/26/21 10/15/22 [facility] [address] [place] [address] Assigned MTM Pharmacist 12/05/21 03/26/22 [place] [address] [place] [address] Assigned PCP 01/23/22 05/14/22 [facility] [address] [place] [address] Assigned MTM Pharmacist 04/07/22 05/14/22 [place] [address] [place] [address] Assigned PCP 05/15/22 Katiana Read MD [address] [place] [address] Assigned Endocrinology Provider 06/19/22 Meme Singleton, PhD [address] [place] [address] Assigned Behavioral Health Provider 07/03/22 12/31/22 Deena Garza, POLICE STENOGRAPHER MEDICATION SPECIALIST [address] [place] [address] Assigned Pain Medication Provider 07/19/22 10/29/22 Mary Del Cid, HAT DESIGNER [address] [place] [address] Nurse Practitioner Nurse Practitioner 10/18/22 Elham Stack, [facility] [address] [place] [address] Pharmacist Pharmacist 10/19/22 Emerita Potter, [facility] Clinic Human Resources Training Manager Glove Former - Clinical 10/29/22 11/02/22 [place] [address] [place] [address] Assigned Pain Medication Provider 10/30/22 12/03/22 Michelle Guzman, ERIC, Podiatry/Foot and Ankle Surgery [address] [place] [address] Assigned Musculoskeletal Provider 10/16/22 04/08/23 [place] [address] [place] [address] Assigned Pain Medication Provider 12/04/22 04/01/23 [place] [address] [place] [address] Nurse Practitioner Nurse Practitioner 01/17/23 01/17/23 Aubrey Jones MD [address] [place] [address] Cardiovascular Disease 03/28/23 Blanquita Morales Vacuum Tester Cans Diabetes Education 04/25/23 Aubrey Jones MD [address] [place] [address] Assigned Heart and Vascular Provider 05/07/23 documented as of this encounter
--- OUTSIDE RECORDS SUMMARY | 2023-08-03 10:11 | XMS_ITS | Encounter Summary ---
Author Name Unknown Organization [facility] Address [address] [place] [address]. [place] [address] Care Team Providers Care Meter Shop Supervisor Name Role Phone Len Adhikari MD Primary Care Provider Jovany Gonzalez MD Unavailable CrissyStaci jeong SUPERVISOR TRANSFERRING AND BOXING Unavailable [phone] Len Adhikari MD Unavailable Reanna Smith RD Unavailable Katiana Read MD Unavailable [phone] Jese Doyle MD Unavailable [phone] Roshni Nascimento RN Unavailable Unavailable Kiet Swain MD Unavailable [phone] Winsome Pike APRN HAM SAWYER Unavailable +[phone] Tori Hines [facility] Unavailable Miranda Queen [facility] Unavailable Unavailable Winsome Pike APRN HAM SAWYER Unavailable [phone] Marisel Armando MD Unavailable Marisel Armando MD Unavailable Inderjit Ugalde MD Unavailable [phone] Wesley Barrett MD Unavailable [phone] Charles Jaramillo PA-C Unavailable [phone] Miranda Queen [facility] Unavailable Unavailable Leeann Rinaldi MD Unavailable Miranda Queen [facility] Unavailable Unavailable Dyan Fuentes MD Primary Care Provider [phone] Dyan Fuentes MD Unavailable [phone] Katiana Read MD Unavailable [phone] Meme Singleton PhD Unavailable [phone] Deena Garza MANAGER INTERN HAM SAWYER Unavailable [phone] Mary Del Cid SUPERVISOR TRANSFERRING AND BOXING Unavailable + [phone] Elham Stack [facility] Unavailable [phone] Emerita Potter PAPER CONE MACHINE OPERATOR Unavailable +[phone] Mary Del Cid NP Unavailable + [phone] Michelle Guzman DPM, Podiatry /Foot and Ankle Surgery Unavailable Dyan Fuentes MD Unavailable [phone] Mary Del Cid NP Unavailable [phone] Aubrey Jones MD Unavailable [phone] Blanquita Morales Unavailable Unavailable Aubrey Jones MD Unavailable [phone] Encounter Details Date Type Department Care Team (Late st Contact Info) Description 02/10/2021 MyC Medical Advice [facility] [address] [place] [address] [place] [address] [place] [address] Social History Tobacco Use Types Packs/Day Years Used Date Smoking Tobacco: Every Day Cigarettes 0.5 40 Smokeless Tobacco: Never Comments:0-4 cigarettes a da y Alcohol Use Standard Drinks/Week Comments Not Currently [...] often do you attend chur ch or oriental orthodox services? Never 09/20/2020 Do you belong to [...] Answer Date Recorded PHQ-2 Score 2 02/02/2021 [facility] Answer Date [...] have Coronavirus / COVID-19? No / Unsure 02/12/2021 2:09 PM CDT documented as of this encounter Plan of Treatment Upcoming Encounters Date Type Department Care Team (Late st Contact Info) Description 08/18/2023 3:00 PM COMMUNICATIONS OFFICER Office Visit [facility] [address] [place] [address] Katiana Read MD [address] [place] [address] documented as of this encounter Visit Diagnoses Not on filedocumented in this encounter Additional Health Concerns Infection Onset Date Last Indicated Resolved Time Rule Out C-difficile 02/27/2021 02/27/2021 021 6:10 PM CDT Rule Out C-difficile 10/14/2022 10/15/2022 023 12:33 AM CDT Rule Out C-difficile 10/15/2022 10/15/2022 023 5:39 AM CDT C-difficile 10/15/2022 10/27/2022 11/26/2022 11:4 0 PM CDT Rule Out C-difficile 10/26/2022 10/27/2022 023 2:14 AM CDT Rule Out C-difficile 12/05/2022 12/05/2022 023 9:44 AM CDT Assessment Noted Time PHQ-9 Depression Total Score: 12 021 4:21 PM CDT documented as of this encounter Care Teams Meter Shop Supervisor Relationship Specialty Start Date End Date Len Adhikari MD PCP - General Family Practice 11/08/16 05/09/22 [place] [address] [place] [address] PCP - General Family Medicine 05/18/22 Jovany Gonzalez MD [facility] [address] [facility] [address] [place], [place] [address] Orthopedics 02/15/17 Staci Woodward NP [place] [address] [place] [address] Nurse Practitioner Nurse Practitioner Psych/Mental Health 05/10/17 [place] [address] [facility] [address] [place], [place] [phone] Assigned PCP 11/14/16 01/22/[address] [facility] [address] [place] [address] Chair Frame Builder Dietitian, Registered 07/25/19 Katiana Read MD [address] [facility] 200 [place] [address] Assigned Endocrinology Provider 05/02/20 08/01/21 Jese Doyle MD [address]09 [place] [address] Assigned Pulmonology Provider 05/02/20 04/11/21 Roshni Nascimento RN Personal Advocate & Liaison (PAL) Family Medicine 08/18/20 Kiet Swain MD [address] [place] [address] [id number] Referring Physician Psychiatry 09/19/20 Winsome Pike APRN HAM SAWYER [address] [place] [address] 183734 Nurse Practitioner Psychiatry 09/19/20 Tori Hines [facility] [address] [place] [address] [phone] Hand Sizer Hand Sizer - Clinical 09/19/20 Miranda Queen [facility] [address] [place] [address] Pharmacist Pharmacist 11/12/20 Winsome Pike APRN HAM SAWYER [address] [place] [address] [phone] Assigned Behavioral Health Provider 01/04/21 07/02/22 Marisel Armando MD [address] [place] [address] [id number] MD Gastroenterology 02/05/21 Marisel Armando MD [address] [place] [address] 729775 Assigned Gastroenterology Provider 03/08/21 12/24/22 Inderjit Ugalde MD [address] [facility] 300 [place] [address] Assigned Surgical Provider 02/15/21 08/20/22 Wesley Barrett MD [address] [place] [address] 96 [place] [address] Assigned Neuroscience Provider 05/10/21 Charles Jaramillo PA-C [address] [address] Assigned Musculoskeletal Provider 04/26/21 10/15/22 Miranda Queen [facility] [address] [place] [address] Assigned MTM Pharmacist 12/05/21 03/26/22 [place] [address] [place] [address] Assigned PCP 01/23/22 05/14/22 Miranda Queen [facility] [address] [place] [address] Assigned MTM Pharmacist 04/07/22 05/14/22 [place] [address] [place] [address] Assigned PCP 05/15/22 Katiana Read MD [address] [facility] 200 [place] [address] Assigned Endocrinology Provider 06/19/22 [place] [address] [place] [address] Assigned Behavioral Health Provider 07/03/22 12/31/22 Deena Garza APRN HAM SAWYER [address] [place] [address] Assigned Pain Medication Provider 07/19/22 10/29/22 Mary Del Cid, RAFAEL [address] [place] [address] Nurse Practitioner Nurse Practitioner 10/18/22 Elham Stack, [facility] 3033 [place] [address] Pharmacist Pharmacist 10/19/22 Emerita Potter, [facility] Clinic Malt House Supervisor Hand Sizer - Clinical 10/29/22 11/02/22 Mary Del Cid, RAFAEL [address] [place] [address] Assigned Pain Medication Provider 10/30/22 12/03/22 Michelle Guzman, DPM, Podiatry/Foot and Ankle Surgery [address] [address] Assigned Musculoskeletal Provider 10/16/22 04/08/23 [place] [address] [place] [address] Assigned Pain Medication Provider 12/04/22 04/01/23 [place] [address] [address] [place] [address] Nurse Practitioner Nurse Practitioner 01/17/23 01/17/23 Aubrey Jones MD [address] [place] [address] Cardiovascular Disease 03/28/23 Blanquita Morales Chair Frame Builder Diabetes Education 04/25/23 Aubrey Jones MD [address] [place] [address] Assigned Heart and Vascular Provider 05/07/23 documented as of this encounter
--- OUTSIDE RECORDS SUMMARY | 2023-08-03 10:11 | XMS_ITS | Encounter Summary ---
Author Name Unknown Organization [facility] Address [address] [place] [address]. [place] [address] Care Team Providers Care Electrostatic Painter Name Role Phone Len Adhikari MD Primary Care Provider Jovany Gonzalez MD Unavailable CrissyStaci jeong SVP MONETIZATION Unavailable [phone] Len Adhikari MD Unavailable Reanna Smith RD Unavailable Katiana Read MD Unavailable [phone] Jese Doyle MD Unavailable [phone] Roshni Nascimento RN Unavailable Unavailable Kiet Swain MD Unavailable [phone] Winsome Pike APRN EMPLOYMENT INSTRUCTIONAL ASSOCIATE Unavailable [phone] Tori Hines [facility] Unavailable Miranda Queen [facility] Unavailable Unavailable Winsome Pike APRN EMPLOYMENT INSTRUCTIONAL ASSOCIATE Unavailable [phone] Marisel Armando MD Unavailable Marisel Armando MD Unavailable Inderjit Ugalde MD Unavailable Wesley Barrett MD Unavailable [phone] Charles Jaramillo PA-C Unavailable [phone] Miranda Queen [facility] Unavailable Unavailable Leeann Rinaldi MD Unavailable Miranda Queen [facility] Unavailable Unavailable Dyan Fuentes MD Primary Care Provider [phone] Dyan Fuentes MD Unavailable [phone] Katiana Read MD Unavailable [phone] Meme Singleton PhD Unavailable [phone] Deena Garza MULTI SPINDLE OPERATOR EMPLOYMENT INSTRUCTIONAL ASSOCIATE Unavailable +[phone] Mary Del Cid SVP MONETIZATION Unavailable + [phone] Elham Stack [facility] Unavailable [phone] Emerita Potter TYPESETTING MACHINE OPERATOR/TENDER Unavailable +[phone] Mary Del Cid NP Unavailable + [phone] Michelle Guzamn DPM, Podiatry /Foot and Ankle Surgery Unavailable Dyan Fuentes MD Unavailable [phone] Mary Del Cid NP Unavailable [phone] Aubrey Jones MD Unavailable [phone] Blanquita Morales Unavailable Unavailable Aubrey Jones MD Unavailable [phone] Encounter Details Date Type Department Care Team (Late st Contact Info) Description 02/10/2021 MyC Medical Advice [facility] [address] [place] [address] [place] [address] [place] [address] Social History Tobacco Use Types [...] Answer Date Recorded PHQ-2 Score 2 02/02/2021 [facility] Questionnaire Answer Date [...] slept in a longterm (including now)? No 09/20/2020 Education Answer Date [...] st Contact Info) Description 08/18/2023 3:00 PM AUTOMOBILE RENTAL REPRESENTATIVE Office Visit [facility] [address] [place] [address] Katiana Read MD [address] [place] [address] documented as of this encounter Visit Diagnoses [...] documented as of this encounter Care Teams Electrostatic Painter Relationship Specialty Start Date End Date Len Adhikari MD PCP - General Family Practice 11/08/16 05/09/22 [place] [address] [place] [address] PCP - General Family Medicine 05/18/22 Jovany Gonzalez MD [facility] [address] [facility] 605 [place], [place] [address] Orthopedics 02/15/17 Staci Woodward NP [place] [address] [place] [address] Nurse Practitioner Nurse Practitioner Psych/Mental Health 05/10/17 [place] [address] [facility] [address] [place], [place] [address] Assigned PCP 11/14/16 01/22/[address] [facility] [address] [place] [address] Ops Manager Dietitian, Registered 07/25/19 Katiana Read MD [address] [facility] 200 [place] [address] Assigned Endocrinology Provider 05/02/20 08/01/21 Jese Doyle MD 909 [place] [address] Assigned Pulmonology Provider 05/02/20 04/11/21 Roshni Nascimento RN Personal Advocate & Liaison (PAL) Family Medicine 08/18/20 Kiet Swain MD [address] [place] [address] 797704 Referring Physician Psychiatry 09/19/20 Winsome Pike APRN EMPLOYMENT INSTRUCTIONAL ASSOCIATE [address] [place] [address] [phone] Nurse Practitioner Psychiatry 09/19/20 Tori Hines [facility] [address] [place] [address] [phone] Anesthetic Assistant Anesthetic Assistant - Clinical 09/19/20 Miranda Queen [facility] [address] [place] [address] Pharmacist Pharmacist 11/12/20 Winsome Pike APRN EMPLOYMENT INSTRUCTIONAL ASSOCIATE [address] [place] [address] [phone] Assigned Behavioral Health Provider 01/04/21 07/02/22 Marisel Armando MD [address] [place] [address] [id number] MD Gastroenterology 02/05/21 Marisel Armando MD [address] [place] [address] 596445 Assigned Gastroenterology Provider 03/08/21 12/24/22 Inderjit Ugalde MD [address] [facility] 300 [place] [address] Assigned Surgical Provider 02/15/21 08/20/22 Wesley Barrett MD [address] [place] [address] 96 [place] [address] Assigned Neuroscience Provider 05/10/21 Charles Jaramillo PA-C [address] [address] Assigned Musculoskeletal Provider 04/26/21 10/15/22 Miranda Queen [facility] [address] [place] [address] Assigned MTM Pharmacist 12/05/21 03/26/22 [place] [address] [place] [address] Assigned PCP 01/23/22 05/14/22 Miranda Queen [facility] [address] [place] [address] Assigned MTM Pharmacist 04/07/22 05/14/22 [place] [address] [place] [address] Assigned PCP 05/15/22 Katiana Read MD [address] [facility] 200 [place] [address] Assigned Endocrinology Provider 06/19/22 Meme Singleton[place] PhD [address] [place] [address] Assigned Behavioral Health Provider 07/03/22 12/31/22 Deena Garza APRN EMPLOYMENT INSTRUCTIONAL ASSOCIATE [address] [place] [address] Assigned Pain Medication Provider 07/19/22 10/29/22 Mary Del Cid, RAFAEL [address] [place] [address] Nurse Practitioner Nurse Practitioner 10/18/22 Elham Stack, [facility] 30[address] [place] [address] Pharmacist Pharmacist 10/19/22 Emerita Potter, [facility] Clinic Telephone Operator Receptionist Anesthetic Assistant - Clinical 10/29/22 11/02/22 Mary Del Cid, RAFAEL [address] [place] [address] Assigned Pain Medication Provider 10/30/22 12/03/22 Michelle Guzman, DPM, Podiatry/Foot and Ankle Surgery [address] [place] [address] Assigned Musculoskeletal Provider 10/16/22 04/08/23 [place] [address] [place] [address] Assigned Pain Medication Provider 12/04/22 04/01/23 [place] [address] [address] [place] [address] Nurse Practitioner Nurse Practitioner 01/17/23 01/17/23 Aubrey Jones MD [address] [place] [address] Cardiovascular Disease 03/28/23 Blanquita Morales Ops Manager Diabetes Education 04/25/23 Aubrey Jones MD [address] [place] [address] Assigned Heart and Vascular Provider 05/07/23 documented as of this encounter
--- OUTSIDE RECORDS SUMMARY | 2023-08-03 10:12 | XMS_ITS | Encounter Summary ---
Author Name Unknown Organization [facility] Address [address] [place] [address]. [place] [address] Care Team Providers Care Paper Roller Name Role Phone Len Adhikari MD Primary Care Provider [phone] Jovany Gonzalez MD Unavailable CrissyStaci jeong TIE TAPE MACHINE OPERATOR Unavailable [phone] Len Adhikari MD Unavailable Reanna Smith RD Unavailable Katiana Read MD Unavailable [phone] Jese Doyle MD Unavailable [phone] Roshni Nascimento RN Unavailable Unavailable Kiet Swain MD Unavailable [phone] Winsome Pike APRN ENERGY SALES CONSULTANT Unavailable [phone] Tori Hines [facility] Unavailable Miranda Queen [facility] Unavailable Unavailable Winsome Pike APRN ENERGY SALES CONSULTANT Unavailable [phone] Marisel Armando MD Unavailable Marisel Armando MD Unavailable Inderjit Ugalde MD Unavailable [phone] Wesley Barrett MD Unavailable [phone] Charles Jaramillo PA-C Unavailable [phone] Miranda Queen [facility] Unavailable Unavailable Leeann Rinaldi MD Unavailable Miranda Queen [facility] Unavailable Unavailable Dyan Fuentes MD Primary Care Provider [phone] Dyan Fuentes MD Unavailable [phone] Katiana Read MD Unavailable [phone] Meme Singleton PhD Unavailable +[phone] Deena Garza CURTAIN ROLLER ASSEMBLER ENERGY SALES CONSULTANT Unavailable [phone] Mary Del Cid NP Unavailable + [phone] Ehlam Stack [facility] Unavailable [phone] Emerita Potter HYDRAMATIC MECHANIC Unavailable +[phone] Mary Del Cid NP Unavailable + [phone] Michelle Guzman DPM, Podiatry /Foot and Ankle Surgery Unavailable Dyan Fuentes MD Unavailable [phone] Mary Del Cid NP Unavailable [phone] Aubrey Jones MD Unavailable [phone] Blanquita Morales Unavailable Unavailable Aubrey Jones MD Unavailable [phone] Encounter Details Date Type Department Care Team (Latest Contact Info) Description 12/25/2020 Historic Results Social History Tobacco Use Types Packs/Day Years Used Date Smoking Tobacco: Every Day Cigarettes 0.5 40 Smokeless Tobacco: Never Comments:0-4 cigarettes a da y Alcohol Use Standard Drinks/Week Comments Not Currently 0 (1 standard drink = 0.6 oz pur e alcohol) occassional Social Connection and Isolat ion Panel [NHANES] Answer Date Recorded In a typical week, how many times do you talk on the phone with family, friends, or neighbors? More than three times a week 09/20/2020 How often do you get togethe r with friends or relatives? Never 09/20/2020 How often do you attend chur ch or mosque services? Never 09/20/2020 Do you belong to [...] all 09/20/2020 PHQ-2 Answer Date Recorded PHQ-2 Total Score (Adult) - Positive if 3 or more points; Administer PHQ-9 if positive 6 12/22/2020 [facility] - Occupational [...] or suspected to have Coronavirus / COVID-19? Unable to assess 12/10/2020 7:47 AM CDT documented as of this encounter Plan of Treatment Upcoming Encounters Date Type Department Care Team (Late st Contact Info) Description 08/18/2023 3:00 PM BROADCAST TRANSMITTER OPERATOR Office Visit [facility] [address] [place] [address] Katiana Read MD [address] [place], [place] 17[address] documented as of this encounter Visit Diagnoses [...] Assessment Noted Time PHQ-9 Depression Total Score: 23 021 7:03 AM CDT documented as of this encounter Care Teams Paper Roller Relationship Specialty Start Date End Date Len Adhikari MD PCP - General Family Practice 11/08/16 05/09/22 [place] [address] [place] [address] PCP - General Family Medicine 05/18/22 Jovany Gonzalez MD [facility] [address] [facility] 605 [place], [place] 85[address] Orthopedics 02/15/17 Staci Woodward, TIE TAPE MACHINE OPERATOR [place] [address] [place] [address] Nurse Practitioner Nurse Practitioner Psych/Mental Health 05/10/17 [place] [address] [facility] [place] [address] Assigned PCP 11/14/16 01/22/[address] [facility] [address] [place] [address] Basket Turner Dietitian, Registered 07/25/19 Katiana Read MD [address] [address] Assigned Endocrinology Provider 05/02/20 08/01/21 Jese Doyle MD [address] [place] [address] Assigned Pulmonology Provider 05/02/20 04/11/21 Roshni Nascimento, RN Personal Advocate & Liaison (PAL) Family Medicine 08/18/20 Kiet Swain MD [address] [place] [address] [phone] Referring Physician Psychiatry 09/19/20 Winsome Pike APRN ENERGY SALES CONSULTANT [address] [place] [address] 748254 Nurse Practitioner Psychiatry 09/19/20 Tori Hines [facility]0 [place], [place] 67[address] Water Pump Installer Water Pump Installer - Clinical 09/19/20 Miranda Queen [facility] [address] [place] [address] Pharmacist Pharmacist 11/12/20 Winsome Pike APRN ENERGY SALES CONSULTANT [address] [place] [address] 374804 Assigned Behavioral Health Provider 01/04/21 07/02/22 Marisel Armando MD [address] [place] [address] Gastroenterology 02/05/21 Marisel Armando MD [address] [place] [address] Assigned Gastroenterology Provider 03/08/21 12/24/22 Inderjit Ugalde MD [address] [place] [address] Assigned Surgical Provider 02/15/21 08/20/22 Wesley Barrett MD [address] [facility] 96 [place] [address] Assigned Neuroscience Provider 05/10/21 Charles Jaramillo PA-C [address] [address] Assigned Musculoskeletal Provider 04/26/21 10/15/22 Miranda Queen [facility] [address] [place] [address] Assigned MTM Pharmacist 12/05/21 03/26/22 [place] [address] [place] [address] Assigned PCP 01/23/22 05/14/22 Miranda Queen [facility] [address] [place] [address] Assigned MTM Pharmacist 04/07/22 05/14/22 [place] [address] [place] [address] Assigned PCP 05/15/22 Katiana Read MD [address] [facility] 200 [place] [address] Assigned Endocrinology Provider 06/19/22 [place] [address] [place] [address] Assigned Behavioral Health Provider 07/03/22 12/31/22 Deena Garza, CURTAIN ROLLER ASSEMBLER ENERGY SALES CONSULTANT [address] [place] [address] Assigned Pain Medication Provider 07/19/22 10/29/22 [place] [address] [address] [place] [address] Nurse Practitioner Nurse Practitioner 10/18/22 Elham Stack, [facility] [address] [place], [place] [phone] Pharmacist Pharmacist 10/19/22 Emerita Potter, [facility] Clinic Pricer Bagger Water Pump Installer - Clinical 10/29/22 11/02/22 [place] [address] [place] [address] Assigned Pain Medication Provider 10/30/22 12/03/22 Michelle Guzman DPM, Podiatry/Foot and Ankle Surgery [address] [place] [address] Assigned Musculoskeletal Provider 10/16/22 04/08/23 [place] [address] [place] [address] Assigned Pain Medication Provider 12/04/22 04/01/23 [place] [address] [address] [place] [address] Nurse Practitioner Nurse Practitioner 01/17/23 01/17/23 Aubrey Jones MD [address] [place] [address] Cardiovascular Disease 03/28/23 Blanquita Morales Basket Turner Diabetes Education 04/25/23 Aubrey Jones MD [address] [place] [address] Assigned Heart and Vascular Provider 05/07/23 documented as of this encounter
--- OUTSIDE RECORDS SUMMARY | 2023-08-03 10:12 | XMS_ITS | Encounter Summary ---
Author Name Unknown Organization [place] Address [address] [place] [address]. [place] [address] Care Team Providers Care Medical Practice Assistant Name Role Phone Len Adhikari MD Primary Care Provider Jovany Gonzalez MD Unavailable CrissyStaci jeong DRAY TRUCK DRIVER Unavailable [phone] Len Adhikari MD Unavailable Reanna Smith RD Unavailable Katiana Read MD Unavailable [phone] Jese Doyle MD Unavailable +[phone] Roshni Nascimento RN Unavailable Unavailable Kiet Swain MD Unavailable [phone] Winsome Pike APRN ESCROW REPRESENTATIVE Unavailable +[phone] Tori Hines [facility] Unavailable Miranda Queen [facility] Unavailable Unavailable Winsome Pike APRN ESCROW REPRESENTATIVE Unavailable +[phone] Marisel Armando MD Unavailable Marisel Armando MD Unavailable Inderjit Ugalde MD Unavailable Wesley Barrett MD Unavailable [phone] Charles Jaramillo PA-C Unavailable [phone] Miranda Queen [facility] Unavailable Unavailable Leeann Rinaldi MD Unavailable Miranda Queen [facility] Unavailable Unavailable Dyan Fuentes MD Primary Care Provider [phone] Dyan Fuentes MD Unavailable [phone] Katiana Read MD Unavailable [phone] Meme Singleton PhD Unavailable [phone] Deena Garza ACO COORDINATOR ESCROW REPRESENTATIVE Unavailable +[phone] Mary Del Cid DRAY TRUCK DRIVER Unavailable [phone] Elham Stack [facility] Unavailable +[phone] Emerita Potter COAL WASHER TENDER Unavailable [phone] Mary Del Cid NP Unavailable [phone] Michelle Guzman DPM, Podiatry /Foot and Ankle Surgery Unavailable Dyan Fuentes MD Unavailable [phone] Mary Del Cid NP Unavailable [phone] Aubrey Jones MD Unavailable Blanquita Morales Unavailable Unavailable Aubrey Jones MD Unavailable [phone] Reason for Visit * Reason Comments Medication Refill Encounter Details Date Type Department Care Team (Late st Contact Info) Description 02/03/[address] [place] [address] [place] [address] [place] [address] Medication Refill Social History Tobacco [...] How often do you attend chur or yazidism services? Never 09/20/2020 Do you belong to [...] Date Recorded PHQ-2 Score 2 02/02/2021 [facility] - Occupational Stress Questionnaire Answer Date [...] slept in a half-way (including now)? No 09/20/2020 Education Answer Date [...] have Coronavirus / COVID-19? No / Unsure 01/16/2021 11:05 AM CDT documented as of this encounter Miscellaneous Notes * Telephone Encounter - Carmel Gongora RN - 02/03/2021 10:14 AM CDT Prescription approved [facility] Refill Protocol. Carmel Gongora RN documented in this encounter Plan of Treatment Upcoming Encounters Date Type Department Care Team (Late st Contact Info) Description 08/18/2023 3:00 PM COMPUTER OPERATIONS SPECIALIST Office Visit [facility] [address] [place] [address] Katiana Read MD [address] [place] [address] documented as of this encounter Visit Diagnoses Diagnosis Benign essential hypertension Essential hypertension, benign documented in this encounter Additional Health Concerns [...] as of this encounter Care Teams Medical Practice Assistant Relationship Specialty Start Date End Date Len Adhikari MD PCP - General Family Practice 11/08/16 05/09/22 [place] [address] [place] [address] PCP - General Family Medicine 05/18/22 Jovany Gonzalez MD [facility] [address] [facility] [address] [address] Orthopedics 02/15/17 Staci Woodward DRAY TRUCK DRIVER [facility] [address] [place] [address] Nurse Practitioner Nurse Practitioner Psych/Mental Health 05/10/17 [place] [address] [facility] [place] [address] Assigned PCP 11/14/16 01/22/22 Reanna Smith, RD [facility] [address] [place] [address] Wood Getter Dietitian, Registered 07/25/19 Katiana Read MD [address] [place] [address] 439330 Assigned Endocrinology Provider 05/02/20 08/01/21 Jese Doyle MD 909 [place] [address] Assigned Pulmonology Provider 05/02/20 04/11/21 Roshni Nascimento, RN Personal Advocate & Liaison (PAL) Family Medicine 08/18/20 Kiet Swain MD [address] [place] [address] [phone] Referring Physician Psychiatry 09/19/20 Winsome Pike APRN ESCROW REPRESENTATIVE [facility] [address] [address] Nurse Practitioner Psychiatry 09/19/20 Tori Hines, [facility] [address] [place] [address] Supervisor Electric Motor Testing Supervisor Electric Motor Testing - Clinical 09/19/20 Miranda Queen [facility] [address] [place] [address] Pharmacist Pharmacist 11/12/20 Winsome Pike APRN ESCROW REPRESENTATIVE [facility] [address] [phone] Assigned Behavioral Health Provider 01/04/21 07/02/22 Marisel Armando MD [address] [place] [address] [phone] Gastroenterology 02/05/21 Marisel Armando MD [address] [place] [address] 748005 Assigned Gastroenterology Provider 03/08/21 12/24/22 Inderjit Ugalde MD [address] [facility] 300 [place], [place] 172577 Assigned Surgical Provider 02/15/21 08/20/22 Wesley Barrett MD 420 [facility] 96 [place], [place] 665[address] Assigned Neuroscience Provider 05/10/21 Charles Jaramillo PA-C [address] [address] Assigned Musculoskeletal Provider 04/26/21 10/15/22 Miranda Queen RPH [address] [place] [address] Assigned MTM Pharmacist 12/05/21 03/26/22 [place] [address] [place] [address] Assigned PCP 01/23/22 05/14/22 Miranda Queen [facility] [address] [place] [address] Assigned MTM Pharmacist 04/07/22 05/14/22 [place] [address] [place] [address] Assigned PCP 05/15/22 Katiana Read MD [address] [place] [address] Assigned Endocrinology Provider 06/19/22 [place] [address] [place] [address] Assigned Behavioral Health Provider 07/03/22 12/31/22 Deena Garza, ACO COORDINATOR ESCROW REPRESENTATIVE [address] [place] [address] Assigned Pain Medication Provider 07/19/22 10/29/22 Mary Del Cid, RAFAEL [address] [place] [address] Nurse Practitioner Nurse Practitioner 10/18/22 Elham Stack, [facility] [address] [place] [address] Pharmacist Pharmacist 10/19/22 Emerita Potter, [facility] Clinic Head Gauge Unit Operator Supervisor Electric Motor Testing - Clinical 10/29/22 11/02/22 [place] [address] [address] [place] [address] Assigned Pain Medication Provider 10/30/22 12/03/22 Michelle Guzman, DPM, Podiatry/Foot and Ankle Surgery [address] [place] [address] Assigned Musculoskeletal Provider 10/16/22 04/08/23 [place] [address] [place] [address] Assigned Pain Medication Provider 12/04/22 04/01/23 [place] [address] [address] [place] [address] Nurse Practitioner Nurse Practitioner 01/17/23 01/17/23 Aubrey Jones MD [address] [place] [address] Cardiovascular Disease 03/28/23 Blanquita Morales Wood Getter Diabetes Education 04/25/23 Aubrey Jones MD [address] [place] [address] Assigned Heart and Vascular Provider 05/07/23 documented as of this encounter
--- OUTSIDE RECORDS SUMMARY | 2023-08-03 10:12 | XMS_ITS | Encounter Summary ---
Author Name Unknown Organization [place] Address [address] [place] [address]. [place] [address] Care Team Providers Care Inspector Pawnshop Detail Name Role Phone Len Adhikari MD Primary Care Provider Jovany Gonzalez MD Unavailable [phone] CrissyStaci jeong KNIFE CHANGER Unavailable [phone] Len Adhikari MD Unavailable Reanna Smith RD Unavailable Katiana Read MD Unavailable [phone] Jese Doyle MD Unavailable [phone] Roshni Nascimento RN Unavailable Unavailable Kiet Swain MD Unavailable [phone] Winsome Pike APRN DIVING SUPERVISOR Unavailable [phone] Tori Hines [facility] Unavailable Miranda Queen [facility] Unavailable Unavailable Winsome Pike APRN DIVING SUPERVISOR Unavailable [phone] Marisel Armando MD Unavailable Marisel Armando MD Unavailable Inderjit Ugalde MD Unavailable [phone] Wesley Barrett MD Unavailable [phone] Charles Jaramillo PA-C Unavailable [phone] Miranda Queen [facility] Unavailable Unavailable Leeann Rinaldi MD Unavailable Miranda Queen [facility] Unavailable Unavailable Dyan Fuentes MD Primary Care Provider [phone] Dyan Fuentes MD Unavailable [phone] Katiana Read MD Unavailable [phone] Meme Singleton PhD Unavailable +[phone] Deena Garza RESIDENTIAL ROOFER DIVING SUPERVISOR Unavailable +[phone] Mary Del Cid NP Unavailable + [phone] Elham Stack [facility] Unavailable [phone] Emerita Potter ASH CONVEYOR OPERATOR Unavailable +[phone] Mary Del Cid NP Unavailable + [phone] Michelle Guzman DPM, Podiatry /Foot and Ankle Surgery Unavailable Dyan Fuentes MD Unavailable [phone] Mary Del Cid NP Unavailable [phone] Aubrey Jones MD Unavailable [phone] Blanquita Morales Unavailable Unavailable Aubrey Jones MD Unavailable [phone] Encounter Details Date Type Department Care Team (Late st Contact Info) Description 01/27/2021 [facility] Medical Advice [facility] [address] [place] [address] Roshni Nascimento, RN Social History Tobacco [...] often do you attend chur ch or hoahaoism services? Never 09/20/2020 Do you belong to any clubs o r organizations such as advent groups, unions, fraternal or athletic groups, or [...] or more points; Administer PHQ-9 if positive 2 01/30/2021 [facility] - Occupational Stress Questionnaire Answer Date [...] slept in a halfway (including now)? No 09/20/2020 Education Answer Date [...] st Contact Info) Description 08/18/2023 3:00 PM GAS TORCH BRAZIER Office Visit [facility] [address] [place] [address] Katiana Read MD [address] [address] [place], [place] 49[address] documented as of this encounter Visit Diagnoses [...] as of this encounter Care Teams Inspector Pawnshop Detail Relationship Specialty Start Date End Date Len Adhikari MD PCP - General Family Practice 11/08/16 05/09/22 [place] [address] [place] [address] PCP - General Family Medicine 05/18/22 Jovany Gonzalez MD [facility] 6600 [facility] [address] [place], [place] 7[address] Orthopedics 02/15/17 Staci Woodward NP [facility] [address] [facility] [place] [place] [address] Nurse Practitioner Nurse Practitioner Psych/Mental Health 05/10/17 [place] [address] [place] [address] Assigned PCP 11/14/16 01/22/[address] [facility] [address] [place] [address] Ammonia Operator Dietitian, Registered 07/25/19 Katiana Read MD [address] [facility] 200 [place], [place] 0[address]180 Assigned Endocrinology Provider 05/02/20 08/01/21 Jese Doyle MD 9 [place], [place] [address] Assigned Pulmonology Provider 05/02/20 04/11/21 Roshni Nascimento, RN Personal Advocate & Liaison (PAL) Family Medicine 08/18/20 Kiet Swain MD [address] [place] [address] [id number] Referring Physician Psychiatry 09/19/20 Winsome Pike APRN DIVING SUPERVISOR [address] [place] [address] 616734 Nurse Practitioner Psychiatry 09/19/20 Tori Hines [facility] [address] [place] [address] [phone] Handbag Parts Cutter Handbag Parts Cutter - Clinical 09/19/20 Miranda Queen RPH [address] [place] [address] Pharmacist Pharmacist 11/12/20 Winsome Pike APRN DIVING SUPERVISOR [address] [place] [address] [phone] Assigned Behavioral Health Provider 01/04/21 07/02/22 Marisel Armando MD [address] [place] [address] Gastroenterology 02/05/21 Marisel Armando MD [address] [place] [address] Assigned Gastroenterology Provider 03/08/21 12/24/22 Inderjit Ugalde MD [address] [facility] [address] [place] [address] Assigned Surgical Provider 02/15/21 08/20/22 Wesley Barrett MD 420 [facility] 96 [place] [address] Assigned Neuroscience Provider 05/10/21 Charles Jaramillo PA-C [address] [address] Assigned Musculoskeletal Provider 04/26/21 10/15/22 Miranda Queen [facility] [address] [place] [address] Assigned MTM Pharmacist 12/05/21 03/26/22 [place] [address] [place] [address] Assigned PCP 01/23/22 05/14/22 Miranda Queen [facility] [address] [place] [address] Assigned MTM Pharmacist 04/07/22 05/14/22 [place] [address] [place] [address] Assigned PCP 05/15/22 Katiana Read MD [address] [facility] 200 [place] [address] Assigned Endocrinology Provider 06/19/22 [place] [address] [place] [address] Assigned Behavioral Health Provider 07/03/22 12/31/22 Deena Garza APRN DIVING SUPERVISOR [address] [place] [address] Assigned Pain Medication Provider 07/19/22 10/29/22 [place] [address] [place] [address] Nurse Practitioner Nurse Practitioner 10/18/22 Elham Stack, [facility] [address] [place] [address] Pharmacist Pharmacist 10/19/22 Emerita Potter, [facility] Clinic Community Development Specialist Handbag Parts Cutter - Clinical 10/29/22 11/02/22 [place] [address] [place] [place] [address] Assigned Pain Medication Provider 10/30/22 12/03/22 Michelle Guzman, DPM, Podiatry/Foot and Ankle Surgery [address] [place] [address] Assigned Musculoskeletal Provider 10/16/22 04/08/23 [place] [address] [address] Assigned Pain Medication Provider 12/04/22 04/01/23 [place] [address] [place] [address] Nurse Practitioner Nurse Practitioner 01/17/23 01/17/23 Aubrey Jones MD [address] [place] [address] Cardiovascular Disease 03/28/23 Blanquita Morales Ammonia Operator Diabetes Education 04/25/23 Aubrey Jones MD [address] [place] [address] Assigned Heart and Vascular Provider 05/07/23 documented as of this encounter
--- OUTSIDE RECORDS SUMMARY | 2023-08-03 10:12 | XMS_ITS | Encounter Summary ---
Author Name Unknown Organization [place] Address [address] [place] [address]. [place] [address] Care Team Providers Care Toolman Name Role Phone Len Adhikari MD Primary Care Provider Jovany Gonzalez MD Unavailable CrissyStaci jeong SUPERVISOR MICROFILM DUPLICATING UNIT Unavailable [phone] Len Adhikari MD Unavailable Reanna Smith [address] Unavailable [phone] Katiana Read MD Unavailable [phone] Jese Doyle MD Unavailable [phone] Roshni Nascimento RN Unavailable Unavailable Kiet Swain MD Unavailable [phone] Winsome Pike APRN CERTIFIED HAND THERAPIST Unavailable [phone] Tori Hines [facility] Unavailable Miranda Queen [facility] Unavailable Unavailable Winsome Pike APRN CERTIFIED HAND THERAPIST Unavailable [phone] Marisel Armando MD Unavailable Marisel Armando MD Unavailable Inderjit Ugalde MD Unavailable Wesley Barrett MD Unavailable [phone] Charles Jaramillo PA-C Unavailable [phone] Miranda Queen [facility] Unavailable Unavailable Leeann Rinaldi MD Unavailable Miranda Queen [facility] Unavailable Unavailable Dyan Fuentes MD Primary Care Provider [phone] Dyan Fuentes MD Unavailable [phone] Katiana Read MD Unavailable [phone] Meme Singleton PhD Unavailable [phone] Deena Garza NETWORK PROGRAMMER CERTIFIED HAND THERAPIST Unavailable [phone] Mary Del Cid SUPERVISOR MICROFILM DUPLICATING UNIT Unavailable + [phone] Elham Stack [facility] Unavailable [phone] Emerita Potter ACCOUNT RELATIONSHIP MANAGER Unavailable [phone] Mary Del Cid NP Unavailable + [phone] Michelle Guzman DPM, Podiatry /Foot and Ankle Surgery Unavailable Dyan Fuentes MD Unavailable [phone] Mary Del Cid NP Unavailable [phone] Aubrey Jones MD Unavailable [phone] Blanquita Morales Unavailable Unavailable Aubrey Jones MD Unavailable [phone] Encounter Details Date Type Department Care Team (Late st Contact Info) Description 12/24/2020 [facility] Medical Advice [facility] [address] [place] [address] [place] [address] [place] [address] Social History Tobacco Use Types [...] often do you attend chur ch or jehovah's witness services? Never 09/20/2020 Do you belong to [...] points; Administer PHQ-9 if positive 6 12/22/2020 [facility] [...] st Contact Info) Description 08/18/2023 3:00 PM SPOOL SORTER Office Visit [facility] [address] [place] [address] Katiana Read MD [address] [place] [address] documented as of this encounter [...] documented as of this encounter Care Teams Toolman Relationship Specialty Start Date End Date Len Adhikari MD PCP - General Family Practice 11/08/16 05/09/22 [place] [address] [place] [address] PCP - General Family Medicine 05/18/22 Jovany Gonzalez MD [facility] 6600 [facility] 605 [place] [address] Orthopedics 02/15/17 Staci Woodward NP [place] [address] [place], [place] [phone] Nurse Practitioner Nurse Practitioner Psych/Mental Health 05/10/17 [place] [address] [place] [address] Assigned PCP 11/14/16 01/22/[address] [facility] [address] [place] [address] Belly Roller Dietitian, Registered 07/25/19 Katiana Read MD [address] [facility] 200 [place] [address] Assigned Endocrinology Provider 05/02/20 08/01/21 Jese Doyle MD 909 [place], [place] 523745 Assigned Pulmonology Provider 05/02/20 04/11/21 Roshni Nascimento, RN Personal Advocate & Liaison (PAL) Family Medicine 08/18/20 Kiet Swain MD [address] [place] [address] 102914 Referring Physician Psychiatry 09/19/20 Winsome Pike APRN CERTIFIED HAND THERAPIST [facility] [address] [address] Nurse Practitioner Psychiatry 09/19/20 Tori Hines [facility] [address] [place] [address] [phone] President & Founder President & Founder - Clinical 09/19/20 Miranda Queen [facility] [address] [place] [address] Pharmacist Pharmacist 11/12/20 Winsome Pike APRN CERTIFIED HAND THERAPIST [address] [place] [address] Assigned Behavioral Health Provider 01/04/21 07/02/22 Marisel Armando MD [address] [place] [address] Gastroenterology 02/05/21 Marisel Armando MD [address] [place] [address] Assigned Gastroenterology Provider 03/08/21 12/24/22 Inderjit Ugalde MD [address] [facility] 300 [place] [address] Assigned Surgical Provider 02/15/21 08/20/22 Wesley Barrett MD 420 [facility] 96 [place] [address] Assigned Neuroscience Provider 05/10/21 Charles Jaramillo PA-C [address] [address] Assigned Musculoskeletal Provider 04/26/21 10/15/22 Miranda Queen [facility] [address] [place] [address] Assigned MTM Pharmacist 12/05/21 03/26/22 [place] [address] [place] [address] Assigned PCP 01/23/22 05/14/22 Miranda Queen [facility] [address] [place] [address] Assigned MTM Pharmacist 04/07/22 05/14/22 [place] [address] [place] [address] Assigned PCP 05/15/22 Katiana Read MD [address] [place] [address] Assigned Endocrinology Provider 06/19/22 [place] [address] [place] [address] Assigned Behavioral Health Provider 07/03/22 12/31/22 Deena Garza APRN CERTIFIED HAND THERAPIST [address] [place] [address] Assigned Pain Medication Provider 07/19/22 10/29/22 Mary Del Cid, RAFAEL [address] [address] [place] [address] Nurse Practitioner Nurse Practitioner 10/18/22 Elham Stack, [facility] [address] [place] [address] Pharmacist Pharmacist 10/19/22 Emerita Potter, [facility] Clinic Newscast Producer President & Founder - Clinical 10/29/22 11/02/22 Mary Del Cid, RAFAEL [address] [address] [place] [address] Assigned Pain Medication Provider 10/30/22 12/03/22 Michelle Guzman, DPM, Podiatry/Foot and Ankle Surgery [address] [place] [address] Assigned Musculoskeletal Provider 10/16/22 04/08/23 [place] [address] [address] [place] [address] Assigned Pain Medication Provider 12/04/22 04/01/23 [place] [address] [address] [place] [address] Nurse Practitioner Nurse Practitioner 01/17/23 01/17/23 Aubrey Jones MD [address] [place] [address] Cardiovascular Disease 03/28/23 Blanquita Morales Belly Roller Diabetes Education 04/25/23 Aubrey Jones MD [address] [place] [address] Assigned Heart and Vascular Provider 05/07/23 documented as of this encounter
--- OUTSIDE RECORDS SUMMARY | 2023-08-03 10:12 | XMS_ITS | Encounter Summary ---
Author Name Unknown Organization [facility] Address [address] [place] [address]. [place] [address] Care Team Providers Care Lens Block Gauger Name Role Phone Len Adhikari MD Primary Care Provider Jovany Gonzalez MD Unavailable CrissyStaci jeong FLATBED OWNER OPERATOR Unavailable [phone] Len Adhikari MD Unavailable Reanna Smith RD Unavailable Katiana Read MD Unavailable [phone] Jese Doyle MD Unavailable +[phone] Roshni Nascimento RN Unavailable Unavailable Kiet Swain MD Unavailable [phone] Winsome Pike APRN SALESPERSON TRAILERS AND MOTOR HOMES Unavailable +[phone] Tori Hines [facility] Unavailable Miranda Queen [facility] Unavailable Unavailable Winsome Pike APRN SALESPERSON TRAILERS AND MOTOR HOMES Unavailable +[phone] Marisel Armando MD Unavailable Marisel Armando MD Unavailable Inderjit Ugalde MD Unavailable [phone] Wesley Barrett MD Unavailable +[phone] Charles Jaramillo PA-C Unavailable [phone] Miranda Queen [facility] Unavailable Unavailable Leeann Rinaldi MD Unavailable Miranda Queen [facility] Unavailable Unavailable Dyan Fuentes MD Primary Care Provider [phone] Dyan Fuentes MD Unavailable [phone] Katiana Read MD Unavailable [phone] Meme Singleton PhD Unavailable +[phone] Deena Garza CUSTOMER SUPPORT ENGINEER SALESPERSON TRAILERS AND MOTOR HOMES Unavailable +[phone] Mary Del Cid FLATBED OWNER OPERATOR Unavailable + [phone] Elham Stack [facility] Unavailable [phone] Emerita Potter INTERNAL COMMUNICATIONS MANAGER Unavailable +[phone] Mary Del Cid NP Unavailable + [phone] Michelle Guzman DPM, Podiatry /Foot and Ankle Surgery Unavailable Dyan Fuentes MD Unavailable [phone] Mary Del Cid NP Unavailable [phone] Aubrey Jones MD Unavailable [phone] Blanquita Morales Unavailable Unavailable Aubrey Jones MD Unavailable [phone] Reason for Visit * Reason Onset Date Comments MyChart Communication 01/14/2021 Encounter Details Date Type Department Care Team (Late st Contact Info) Description 01/14/2021 MyC Medical Advice [facility] [id number] [place] [phone] [place] [address] [place] [address] MyChart Communication Social History Tobacco Use Types [...] points; Administer PHQ-9 if positive 6 12/22/2020 [facility] of Occupat ional Health - Occupational Stress [...] st Contact Info) Description 08/18/2023 3:00 PM DENTAL SECRETARY Office Visit [facility] [address] [place] [address] Katiana Read MD [address] [place] [address] documented as of this encounter Visit Diagnoses [...] documented as of this encounter Care Teams Lens Block Gauger Relationship Specialty Start Date End Date Len Adhikari MD PCP - General Family Practice 11/08/16 05/09/22 [place] [address] [place] [address] PCP - General Family Medicine 05/18/22 Jovany Gonzalez MD [facility] [address] [place] [id number] Orthopedics 02/15/17 Staci Woodward NP [facility] [address] [place], [place] 778[address] Nurse Practitioner Nurse Practitioner Psych/Mental Health 05/10/17 [place] [address] [place] [address] Assigned PCP 11/14/16 01/22/[address] [facility] [address] [place] [address] Pharmacogeneticist Dietitian, Registered 07/25/19 Katiana Read MD [address] [place] [address] [id number] Assigned Endocrinology Provider 05/02/20 08/01/21 Jese Doyle MD 909 [place], [place] 322705 Assigned Pulmonology Provider 05/02/20 04/11/21 Roshni Nascimento, RN Personal Advocate & Liaison (PAL) Family Medicine 08/18/20 Kiet Swain MD [address] [place] [address] 550354 Referring Physician Psychiatry 09/19/20 Winsome Pike APRN SALESPERSON TRAILERS AND MOTOR HOMES [facility] 935[address] Nurse Practitioner Psychiatry 09/19/20 Tori Hines, [facility] [address] [place] [address] 192584 Director Appointment Director Appointment - Clinical 09/19/20 Miranda Queen, [facility] [address] [place] [address] Pharmacist Pharmacist 11/12/20 Winsome Pike APRN SALESPERSON TRAILERS AND MOTOR HOMES [address] [place] [address] 056654 Assigned Behavioral Health Provider 01/04/21 07/02/22 Marisel Armando MD [address] [place] [address] 410995 Gastroenterology 02/05/21 Marisel Armando MD [address] [place] [address] 851955 Assigned Gastroenterology Provider 03/08/21 12/24/22 Inderjit Ugalde MD [address] [facility] 300 [place] [address] Assigned Surgical Provider 02/15/21 08/20/22 Wesley Barrett MD 420 [facility] 96 [place], [place] 6[address] Assigned Neuroscience Provider 05/10/21 Charles Jaramillo PA-C 6545 [facility] [address] [address] Assigned Musculoskeletal Provider 04/26/21 10/15/22 Miranda Queen [facility] [address] [place] [address] Assigned MTM Pharmacist 12/05/21 03/26/22 [place] [address] [place] [address] Assigned PCP 01/23/22 05/14/22 Miranda Queen [facility] [address] [place] [address] Assigned MTM Pharmacist 04/07/22 05/14/22 [place] [address] [address] [place] [address] Assigned PCP 05/15/22 Katiana Read MD [address] [address] Assigned Endocrinology Provider 06/19/22 Meme Singleton, PhD [address] [place] [address] Assigned Behavioral Health Provider 07/03/22 12/31/22 Deena Garza APRN SALESPERSON TRAILERS AND MOTOR HOMES [address] [place] [address] Assigned Pain Medication Provider 07/19/22 10/29/22 Mary Del Cid, RAFA[place] [address] [place] [address] Nurse Practitioner Nurse Practitioner 10/18/22 Elham Stack, [facility] 3033 [place] [address] Pharmacist Pharmacist 10/19/22 Emerita Potter, [facility] Clinic Knuckle Bender Director Appointment - Clinical 10/29/22 11/02/22 [place] [address] [place] [address] Assigned Pain Medication Provider 10/30/22 12/03/22 Michelle Guzman, DPM, Podiatry/Foot and Ankle Surgery [address] [place] [address] Assigned Musculoskeletal Provider 10/16/22 04/08/23 [place] [address] [place] [address] Assigned Pain Medication Provider 12/04/22 04/01/23 [place] [address] [address] [place] [address] Nurse Practitioner Nurse Practitioner 01/17/23 01/17/23 Aubrey Jones MD [address] [place] [address] Cardiovascular Disease 03/28/23 Blanquita Morales Pharmacogeneticist Diabetes Education 04/25/23 Aubrey Jones MD [address] [place] [address] Assigned Heart and Vascular Provider 05/07/23 documented as of this encounter
--- OUTSIDE RECORDS SUMMARY | 2023-08-03 10:12 | XMS_ITS | Encounter Summary ---
Author Name Unknown Organization [facility] Address [address] [place] [address]. [place] [address] Care Team Providers Care Developmental Training Counselor Name Role Phone Len Adhikari MD Primary Care Provider Jovany Gonzalez MD Unavailable [phone] CrissyStaci jeong SUPERVISOR JEWELRY DEPARTMENT Unavailable [phone] Len Adhikari MD Unavailable Reanna Smith RD Unavailable [phone] Katiana Read MD Unavailable [phone] Jese Doyle MD Unavailable +[phone] Roshni Nascimento RN Unavailable Unavailable Kiet Swain MD Unavailable [phone] Winsome Pike APRN ROLLER HAND Unavailable [phone] Tori Hines [facility] Unavailable Miranda Queen [facility] Unavailable Unavailable Winsome Pike APRN ROLLER HAND Unavailable [phone] Marisel Armando MD Unavailable Marisel Armando MD Unavailable Inderjit Ugalde MD Unavailable [phone] Wesley Barrett MD Unavailable [phone] Charles Jaramillo PA-C Unavailable [phone] Mrianda Queen [facility] Unavailable Unavailable Leeann Rinaldi MD Unavailable Miranda Queen [facility] Unavailable Unavailable Dyan Fuentes MD Primary Care Provider [phone] Dyan Fuentes MD Unavailable [phone] Katiana Read MD Unavailable [phone] Meme Singleton PhD Unavailable [phone] Deena Garza COIN MACHINE COLLECTOR ROLLER HAND Unavailable [phone] Mary Del Cid SUPERVISOR JEWELRY DEPARTMENT Unavailable + [phone] Elham Stack [facility] Unavailable [phone] Emerita Potter SUPERVISOR MACHINE WORKERS Unavailable [phone] Mary Del Cid NP Unavailable [phone] Michelle Guzman DPM, Podiatry /Foot and Ankle Surgery Unavailable Dyan Fuentes MD Unavailable [phone] Mary Del Cid NP Unavailable [phone] Aubrey Jones MD Unavailable Blanquita Morales Unavailable Unavailable Aubrey Jones MD Unavailable [phone] Reason for Visit * Reason Onset Date Comments Pt. Information/instruction 01/30/2021 Encounter Details Date Type Department Care Team (Late st Contact Info) Description 01/30/2021 [facility] Advice [address] [place] [address] Sandy Oliver, RN [facility] [address] [facility] 600 [place] [address] Pt. Information/instruct ion Social History Tobacco Use Types Packs/Day Years [...] you attend chur ch or restorationist services? Never 09/20/2020 Do you belong to [...] Date Recorded PHQ-2 Score 2 02/02/2021 [facility] of Occupat ional Health - Occupational [...] in a skilled nursing (including now)? No 09/20/2020 Education Answer Date [...] st Contact Info) Description 08/18/2023 3:00 PM PLASTIC CUTTER Office Visit [facility] [address] [place] [phone] Katiana Read MD [address] [place] [address] documented as of this encounter Visit Diagnoses [...] Time PHQ-9 Depression Total Score: 12 021 4:46 PM CDT documented as of this encounter Care Teams Developmental Training Counselor Relationship Specialty Start Date End Date Len Adhikari MD PCP - General Family Practice 11/08/16 05/09/22 [place] [address] [place] [address] PCP - General Family Medicine 05/18/22 Jovany Gonzalez MD [facility] [address] [facility] [address] [place] [address] Orthopedics 02/15/17 Staci Woodward NP [facility] [address] [place], [place] 9[address] Nurse Practitioner Nurse Practitioner Psych/Mental Health 05/10/17 [place] [address] [place] [address] Assigned PCP 11/14/16 01/22/[address] [facility] [address] [place] [address] Scrap Dealer Dietitian, Registered 07/25/19 Katiana Read MD [address] [place] [address] 200 [place], [place] 7[address]80 Assigned Endocrinology Provider 05/02/20 08/01/21 Jese Doyle MD 909 [place], [place] 291785 Assigned Pulmonology Provider 05/02/20 04/11/21 Roshni Nascimento RN Personal Advocate & Liaison (PAL) Family Medicine 08/18/20 Kiet Swain MD [address] [place] [address] [id number] Referring Physician Psychiatry 09/19/20 Winsome Pike APRN ROLLER HAND [facility] [phone] Nurse Practitioner Psychiatry 09/19/20 Tori Hines SUPERVISOR MACHINE WORKERS [address] [place] [address] Fire Alarm Installer Fire Alarm Installer - Clinical 09/19/20 Miranda Queen [facility] [address] [place] [address] Pharmacist Pharmacist 11/12/20 Winsome Pike APRN ROLLER HAND [address] [place] [address] 249834 Assigned Behavioral Health Provider 01/04/21 07/02/22 Marisel Armando MD [address] [place] [address] Gastroenterology 02/05/21 Marisel Armando MD [address] [place] [address] Assigned Gastroenterology Provider 03/08/21 12/24/22 Inderjit Ugalde MD [address] [facility] 300 [place] [address] Assigned Surgical Provider 02/15/21 08/20/22 Wesley Barrett MD 420 [facility] 96 [place], [place] 0667[address] Assigned Neuroscience Provider 05/10/21 Charles Jaramillo PA-C [address] [address] Assigned Musculoskeletal Provider 04/26/21 10/15/22 Miranda Queen [facility] [address] [place] [address] Assigned MTM Pharmacist 12/05/21 03/26/22 [place] [address] [place] [address] Assigned PCP 01/23/22 05/14/22 Miranda Queen RPH [address] [place] [address] Assigned MTM Pharmacist 04/07/22 05/14/22 [place] [address] [place] [address] Assigned PCP 05/15/22 Katiana Read MD [address] [place] [address] Assigned Endocrinology Provider 06/19/22 [place] [address] [place] [address] Assigned Behavioral Health Provider 07/03/22 12/31/22 Deena Garza, COIN MACHINE COLLECTOR ROLLER HAND [address] [place] 105717 Assigned Pain Medication Provider 07/19/22 10/29/22 Mary Del Cid, RAFA[place] [address] [place] 155177 Nurse Practitioner Nurse Practitioner 10/18/22 Elham Stack, [facility] [address] [place] [address] Pharmacist Pharmacist 10/19/22 Emerita Potter, [facility] Clinic Sharebroker Fire Alarm Installer - Clinical 10/29/22 11/02/22 [place] [address] [address] [place] [address] Assigned Pain Medication Provider 10/30/22 12/03/22 Michelle Guzman DPM, Podiatry/Foot and Ankle Surgery [address] [place] [address] Assigned Musculoskeletal Provider 10/16/22 04/08/23 [place] [address] [place] [address] Assigned Pain Medication Provider 12/04/22 04/01/23 [place] [address] [address] [place] [address] Nurse Practitioner Nurse Practitioner 01/17/23 01/17/23 Aubrey Jones MD [address] [place] [address] Cardiovascular Disease 03/28/23 Blanquita Morales Scrap Dealer Diabetes Education 04/25/23 Aubrey Jones MD [address] [place] [address] Assigned Heart and Vascular Provider 05/07/23 documented as of this encounter
--- OUTSIDE RECORDS SUMMARY | 2023-08-03 10:12 | XMS_ITS | Encounter Summary ---
Author Name Unknown Organization [facility] Address [address] [place] [address]. [place] [address] Care Team Providers Care Post Hole Digger Name Role Phone Len Adhikari MD Primary Care Provider Jovany Gonzalez MD Unavailable CrissyStaci jeong LINOLEUM LAYER Unavailable [phone] Len Adhikari MD Unavailable [phone] Unavailable [phone] Katiana Read MD Unavailable [phone] Jese Doyle MD Unavailable [phone] Roshni Nascimento RN Unavailable Unavailable Kiet Swain MD Unavailable [phone] Winsome Pike APRN ROADS SUPERINTENDENT Unavailable +[phone] Tori Hines [facility] Unavailable Miranda Queen [facility] Unavailable Unavailable Winsome Pike APRN ROADS SUPERINTENDENT Unavailable [phone] Marisel Armando MD Unavailable Marisel Armando MD Unavailable Inderjit Ugalde MD Unavailable [phone] Wesley Barrett MD Unavailable [phone] Charles Jaramillo PA-C Unavailable [phone] Miranda Queen [facility] Unavailable Unavailable Leeann Rinaldi MD Unavailable Miranda Queen [facility] Unavailable Unavailable Dyan Fuentes MD Primary Care Provider [phone] Dyan Fuentes MD Unavailable [phone] Katiana Read MD Unavailable +[phone] Meme Singleton PhD Unavailable +[phone] Deena Garza ASTHMA EDUCATOR ROADS SUPERINTENDENT Unavailable +[phone] Mary Del Cid NP Unavailable + [phone] Elham Stack [facility] Unavailable +[phone] Emerita Potter COOK HOUSE LABORER Unavailable [phone] Mary Del Cid NP Unavailable + [phone] Michelle Guzman DPM, Podiatry /Foot and Ankle Surgery Unavailable Dyan Fuentes MD Unavailable [phone] Mary Del Cid NP Unavailable [phone] Aubrey Jones MD Unavailable [phone] Blanquita Morales Unavailable Unavailable Aubrey Jones MD Unavailable +[phone] Encounter Details Date Type Department Care Team (Late st Contact Info) Description 01/12/2021 Telephone [facility] Behavioral Health Intake [address] [place] [phone] Generic, Behavioral Intake, Social History Tobacco Use Types Packs/Day Years [...] How often do you attend chur or temple services? Never 09/20/2020 Do you belong to [...] points; Administer PHQ-9 if positive 6 12/22/2020 [facility] of Occupat ional Health - [...] encounter Miscellaneous Notes * Telephone Encounter - Jovita Quintana - 01/12/2021 1:04 PM CDT ----- Message from CARO Iqbal sent at 01/12/2021 12:57 PM CDT ----- Regarding: remove pt from [facility] Hello please remove pt from 55+ B1 [facility]. She has discharged from the program. Thank you documented in this encounter Plan of Treatment Upcoming Encounters Date Type Department Care Team (Late st Contact Info) Description 08/18/2023 3:00 PM TOOL AND DIE TECHNICIAN Office Visit [facility] [address] [place] [address] Katiana Read MD [address] [place] [address] documented as of this encounter Visit Diagnoses [...] as of this encounter Care Teams Post Hole Digger Relationship Specialty Start Date End Date Len Adhikari MD PCP - General Family Practice 11/08/16 05/09/22 [place] [address] [place] [address] PCP - General Family Medicine 05/18/22 Jovany Gonzalez MD [facility] 6600 [facility] 605 [place], [place] 13[address]15 Orthopedics 02/15/17 Staci Woodward NP [place] [address] [place], [place] [address] Nurse Practitioner Nurse Practitioner Psych/Mental Health 05/10/17 [place] [address] [facility] [place] [address] Assigned PCP 11/14/16 01/22/[address] [place] [address] [place] [address] Felt Cutter Dietitian, Registered 07/25/19 Katiana Read MD [address] [place] [address] Assigned Endocrinology Provider 05/02/20 08/01/21 Jese Doyle MD 909 [place], [place] 328205 Assigned Pulmonology Provider 05/02/20 04/11/21 Roshni Nascimento, RN Personal Advocate & Liaison (PAL) Family Medicine 08/18/20 Kiet Swain MD [address] [place] [address] [id number] Referring Physician Psychiatry 09/19/20 Winsome Pike APRN ROADS SUPERINTENDENT [facility] [address] 324[address] Nurse Practitioner Psychiatry 09/19/20 Tori Hines, [facility] [address] [place] [address] Plc Technician Plc Technician - Clinical 09/19/20 Miranda Queen, [facility] [address] [place] [address] Pharmacist Pharmacist 11/12/20 Winsome Pike APRN ROADS SUPERINTENDENT [address] 646784 Assigned Behavioral Health Provider 01/04/21 07/02/22 Marisel Armando MD [address] [place] [address] 067545 Gastroenterology 02/05/21 aMrisel Armando MD [address] [place] [address] 159185 Assigned Gastroenterology Provider 03/08/21 12/24/22 Inderjit Ugalde MD [address] [facility] 300 [place], [place] [address] Assigned Surgical Provider 02/15/21 08/20/22 Wesley Barrett MD 420 [facility] 96 [place], [place] [address] Assigned Neuroscience Provider 05/10/21 Charles Jaramillo PA-C 6545 [facility] [address] [address] Assigned Musculoskeletal Provider 04/26/21 10/15/22 Miranda Queen [place]PH [address] [place] [address] Assigned MTM Pharmacist 12/05/21 03/26/22 [place] [address] [place] [address] Assigned PCP 01/23/22 05/14/22 Miranda Queen [facility] [address] [place] [address] Assigned MTM Pharmacist 04/07/22 05/14/22 [place] [address] [place] [address] Assigned PCP 05/15/22 Katiana Read MD [address] [place] [address] Assigned Endocrinology Provider 06/19/22 [place] [address] [place] [address] Assigned Behavioral Health Provider 07/03/22 12/31/22 Deena Garza APRN ROADS SUPERINTENDENT [address] [place] [address] Assigned Pain Medication Provider 07/19/22 10/29/22 Mary Del Cid, [place] [address] [place] [address] Nurse Practitioner Nurse Practitioner 10/18/22 Elham Stack, [facility] [address]33 [place] [address] Pharmacist Pharmacist 10/19/22 Emerita Potter, [facility] Clinic Acting Instructor Plc Technician - Clinical 10/29/22 11/02/22 [place] [address] [address] [place] [address] Assigned Pain Medication Provider 10/30/22 12/03/22 Michelle Guzman, ALDOM, Podiatry/Foot and Ankle Surgery [address] [place] [address] Assigned Musculoskeletal Provider 10/16/22 04/08/23 [place] [address] [place] [address] Assigned Pain Medication Provider 12/04/22 04/01/23 [place] [address] [place] [address] Nurse Practitioner Nurse Practitioner 01/17/23 01/17/23 Aubrey Jones MD [address] [place] [address] Cardiovascular Disease 03/28/23 Blanquita Morales Felt Cutter Diabetes Education 04/25/23 Aubrey Jones MD [address] [place] [address] Assigned Heart and Vascular Provider 05/07/23 documented as of this encounter
--- OUTSIDE RECORDS SUMMARY | 2023-08-03 10:12 | XMS_ITS | Encounter Summary ---
Author Name Unknown Organization [place] Address [address] [place] [address]. [place] [address] Care Team Providers Care Dairy Management Specialist Name Role Phone Len Adhikari MD Primary Care Provider Jovany Gonzalez MD Unavailable CrissyStaci jeong FLAT CUTTER Unavailable [phone] Len Adhikari MD Unavailable Reanna Smith RD Unavailable [phone] Katiana Read MD Unavailable [phone] Jese Doyle MD Unavailable [phone] Roshni Nascimento RN Unavailable Unavailable Kiet Swain MD Unavailable [phone] Winsome Pike APRN SLEEVE SETTER Unavailable [phone] [facility] Unavailable Miranda Queen [facility] Unavailable Unavailable Winsome Pike APRN SLEEVE SETTER Unavailable [phone] Marisel Armando MD Unavailable Marisel Armando MD Unavailable Inderjit Ugalde MD Unavailable Wesley Barrett MD Unavailable [phone] Charles Jaramillo PA-C Unavailable [phone] Miranda Queen [facility] Unavailable Unavailable Leeann Rinaldi MD Unavailable Miranda Queen [facility] Unavailable Unavailable Dyan Fuentes MD Primary Care Provider [phone] Dyan Fuentes MD Unavailable [phone] Katiana Read MD Unavailable [phone] Meme Singleton PhD Unavailable [phone] Deena Garza APRN SLEEVE SETTER Unavailable [phone] Mary Del Cid NP Unavailable [phone] Elham Stack [facility] Unavailable [phone] [facility] Unavailable [phone] Mary Del Cid NP Unavailable [phone] Michelle Guzman DPM, Podiatry /Foot and Ankle Surgery Unavailable Dyan Fuentes MD Unavailable [phone] Mary Del Cid NP Unavailable [phone] Aubrey Jones MD Unavailable Blanquita Morales Unavailable Unavailable Aubrey Jones MD Unavailable [phone] Reason for Visit * Reason Onset Date Comments Prior Auth - Medication 01/28/2021 Buprenor phine HCl (BELBUCA) 300 MCG FILM buccal film-APPROVED Encounter Details Date Type Department Care Team (Late st Contact Info) Description 01/28/[address] [facility] Pain Management [place] [id number] [place] [address] [address] [place] [address] Deena Garza APRN SLEEVE SETTER [address] [address] [place] [id number] Prior Auth - Medication (Buprenorphine HCl (BELBUCA) 300 MCG FILM buccal film-APPROVED) Social History Tobacco Use Types Packs/Day Years [...] points; Administer PHQ-9 if positive 2 01/30/2021 [facility] [place] of Occupat ional Health - Occupational Stress [...] encounter Miscellaneous Notes * Telephone Encounter - Magen Queen - 01/30/2021 10:34 AM CDT Images from the original note were not included. Prior Authorization Approval Authorization Effective Date: 01/30/2021 Authorization Expiration Date: 07/29/2021 Medication: Buprenorphine HCl (BELBUCA) 300 MCG FILM buccal film-APPROVED Approved Dose/Quantity: Reference #: Insurance Company: [employer] - Expected CoPay: CoPay Card Available: Foundation Assistance Needed: Which Pharmacy is filling the prescription (Not needed for infusion/clinic administered): [id number] [place], [place] - [address] [facility] Pharmacy Notified: Yes Patient Notified: Yes Instructed pharmacy to notify patient when script is ready to picket labor union/ship. * Telephone Encounter - Magen Queen - 01/28/2021 2:38 PM CDT Images from the original note were not included. Central Prior Authorization Team PA Initiation Medication: Buprenorphine HCl (BELBUCA) 300 MCG FILM buccal film Insurance Company: [employer] - Pharmacy Filling the Rx: [facility] #[id number] - [place], [place] - [address] [facility] Filling Pharmacy Filling Pharmacy Start Date: 01/28/2021 * Telephone Encounter - Sarah Villarreal - 01/28/2021 2:02 PM CDT Prior Authorization Specialty Medication Request Medication/Dose: Buprenorphine HCl (BELBUCA) 300 MCG FILM buccal film ICD code (if different than what is on RX): S/P cervical spinal fusion [Z98.1] ??- Primary S/P lumbar fusion [Z98.1] Chronic pain syndrome [G89.4] Previously Tried and Failed: ... Important Lab Values: ... Rationale: ... Insurance Name: Coverage information: Subscriber: [id number] LILI WISEMAN Rel to sub: 02 - Spouse Payor: [id number] Benefit plan: [id number] PREFERREDONE Group number: [id number] Member effective dates: from 07/11/12 Pharmacy Information (if different than what is on RX) Name: ... Phone: ... * Telephone Encounter - Lenka Williamson - 01/28/2021 9:01 AM CDT Images from the original note were not included. EPA REQUEST documented in this encounter Plan of Treatment Upcoming Encounters Date Type Department Care Team (Late st Contact Info) Description 08/18/2023 3:00 PM UROGYNECOLOGY PHYSICIAN Office Visit [facility] [address] [place] [address] Katiana Read MD [address] [place] [address] documented as of this encounter [...] documented as of this encounter Care Teams Dairy Management Specialist Relationship Specialty Start Date End Date Len Adhikari MD PCP - General Family Practice 11/08/16 05/09/22 [place] [address] [place] [address] PCP - General Family Medicine 05/18/22 Jovany Gonzalez MD [facility] [address] [facility] [address] [place] [address] Orthopedics 02/15/17 Staci Woodward, RAFAEL [place] [address] [place] [address] Nurse Practitioner Nurse Practitioner Psych/Mental Health 05/10/17 [place] [address] [facility] [place] [address] Assigned PCP 11/14/16 01/22/[address] [place] [address] [place] [address] Administrative Support Assoc Dietitian, Registered 07/25/19 Katiana Read MD [address] [place] [address] 200 [place] [address] Assigned Endocrinology Provider 05/02/20 08/01/21 Jese Doyle MD [address] [place] [address] Assigned Pulmonology Provider 05/02/20 04/11/21 Roshni Nascimento, RN Personal Advocate & Liaison (PAL) Family Medicine 08/18/20 Kiet Swain MD [address] [place] [address] [place] [address] 713674 Referring Physician Psychiatry 09/19/20 Winsome Pike APRN SLEEVE SETTER [address] [place] [address] 280564 Nurse Practitioner Psychiatry 09/19/[address] [facility] [address] [place] [address] [phone] Auxiliary Equipment Tender Auxiliary Equipment Tender - Clinical 09/19/20 Miranda Queen [facility] [address] [place] [address] Pharmacist Pharmacist 11/12/20 Winsome Pike APRN SLEEVE SETTER [address] [place] [address] Assigned Behavioral Health Provider 01/04/21 07/02/22 Marisel Armando MD [address] [place] [address] Gastroenterology 02/05/21 Marisel Armando MD [address] [place] [address] Assigned Gastroenterology Provider 03/08/21 12/24/22 Inderjit Ugalde MD [address] [address] Assigned Surgical Provider 02/15/21 08/20/22 Wesley Barrett MD [address] [facility] [address] [place] [address] Assigned Neuroscience Provider 05/10/21 Charles Jaramillo PA-C [address] [facility] [address] [place] [address] Assigned Musculoskeletal Provider 04/26/21 10/15/22 Miranda Queen [facility] [address] [place] [address] Assigned MTM Pharmacist 12/05/21 03/26/22 [place] [address] [place] [address] Assigned PCP 01/23/22 05/14/22 Miranda Queen [facility] [address] [place] [address] Assigned MTM Pharmacist 04/07/22 05/14/22 [place] [address] [place] [address] Assigned PCP 05/15/22 Katiana Read MD [address] [place] [address] 200 [place] [address] Assigned Endocrinology Provider 06/19/22 [place] [address] [place] [address] Assigned Behavioral Health Provider 07/03/22 12/31/22 Deena Garza, CHEMICAL PROCESS ANALYST SLEEVE SETTER [address] [place] [place] [address] Assigned Pain Medication Provider 07/19/22 10/29/22 [place] [address] [place] [address] Nurse Practitioner Nurse Practitioner 10/18/22 Elham Stack, [facility] [address] [place], [place] [address] Pharmacist Pharmacist 10/19/22 Emerita Potter, [facility] Clinic System Controller Auxiliary Equipment Tender - Clinical 10/29/22 11/02/22 [place] [address] [address] [address] Assigned Pain Medication Provider 10/30/22 12/03/22 Michelle Guzman, DPM, Podiatry/Foot and Ankle Surgery [address] [place] [address] Assigned Musculoskeletal Provider 10/16/22 04/08/23 [place] [address] [place] [address] Assigned Pain Medication Provider 12/04/22 04/01/23 [place] [address] [address] [address] Nurse Practitioner Nurse Practitioner 01/17/23 01/17/23 Aubrey Jones MD [address] [place] [address] Cardiovascular Disease 03/28/23 Blanquita Morales Administrative Support Assoc Diabetes Education 04/25/23 Aubrey Jones MD [address] [place] [address] Assigned Heart and Vascular Provider 05/07/23 documented as of this encounter
--- OUTSIDE RECORDS SUMMARY | 2023-08-03 10:13 | XMS_ITS | Encounter Summary ---
Author Name Unknown Organization [place] Address [address] [place] [address]. [place] [address] Care Team Providers Care Hotel Front Desk Clerk Name Role Phone Len Adhikari MD Primary Care Provider Jovany Gonzalez MD Unavailable CrissyStaci jeong LATHE MECHANIC Unavailable [phone] Len Adhikari MD Unavailable Reanna Smith RD Unavailable Katiana Read MD Unavailable [phone] Alexander López MD Unavai lable Jese Doyle MD Unavailable [phone] Roshni Nascimento RN Unavailable Unavailable Johana Groves [facility] Unavailable [phone] Kiet Swain MD Unavailable [phone] Winsome Pike APRN FRAME BENDER Unavailable [phone] Tori Hines [facility] Unavailable Miranda Queen [facility] Unavailable Unavailable Winsome Pike APRN FRAME BENDER Unavailable [phone] Marisel Armando MD Unavailable Marisel Armando MD Unavailable Inderjit Ugalde MD Unavailable [phone] Wesley Barrett MD Unavailable [phone] Charles Jaramillo PA-C Unavailable [phone] Miranda Queen [facility] Unavailable Unavailable Leeann Rinaldi MD Unavailable Miranda Queen [facility] Unavailable Unavailable Dyan Fuentes MD Primary Care Provider [phone] Dyan Fuentes MD Unavailable [phone] Katiana Read MD Unavailable [phone] Meme Singleton PhD Unavailable [phone] Deena Garza SERVICE MECHANIC FRAME BENDER Unavailable [phone] Mary Del Cid NP Unavailable + [phone] Elham Stack [facility] Unavailable [phone] Emerita Potter RIGGING SLINGER Unavailable [phone] Mary Del Cid NP Unavailable [phone] Michelle Guzman DPM, Podiatry /Foot and Ankle Surgery Unavailable Dyan Fuentes MD Unavailable [phone] Mary Del Cid NP Unavailable [phone] Aubrey Jones MD Unavailable [phone] Blanquita Morales Unavailable Unavailable Aubrey Jones MD Unavailable [phone] Encounter Details Date Type Department Care Team (Late st Contact Info) Description 11/12/2020 [facility] Medical Advice [address] [place] [address] Miranda Queen, [facility] [address] [place] [address] Social History Tobacco Use Types Packs/Day Years Used Date Smoking Tobacco: Every Day Cigarettes 0.5 40 Smokeless Tobacco: Never Comments:0-4 cigarettes a da y Alcohol Use Standard Drinks/Week Comments Not Currently 0 (1 standard drink = 0.6 oz pure alcohol) pt spouse states no, was seen in ED 04/09/19 for intoxication Social Connection and Isolat ion Panel [NHANES] Answer Date Recorded In a typical week, how many times do you talk on the phone with family, friends, or neighbors? More than three times a week 09/20/2020 How often do you get togethe r with friends or relatives? Never 09/20/2020 How often do you attend chur ch or yazidi services? Never 09/20/2020 Do you belong to any clubs o r organizations such as yazidism groups, unions, fraternal or athletic groups, or [...] 09/20/2020 PHQ-2 Answer Date Recorded PHQ-2 Score 6 11/06/2020 [facility] [place] of Occupat ional Health - Occupational Stress [...] have Coronavirus / COVID-19? No / Unsure 10/27/2020 9:49 AM CDT documented as of this encounter Plan of Treatment Upcoming Encounters Date Type Department Care Team (Late st Contact Info) Description 08/18/2023 3:00 PM DELI WORKER Office Visit [facility] [address] [place] [address] Katiana Read MD [address] [place], [place] 8[address] documented as of this encounter Visit Diagnoses [...] Assessment Noted Time PHQ-9 Depression Total Score: 021 8:29 AM CDT documented as of this encounter Care Teams Hotel Front Desk Clerk Relationship Specialty Start Date End Date Len Adhikari MD PCP - General Family Practice 11/08/16 05/09/22 [place] [address] [place] [address] PCP - General Family Medicine 05/18/22 Jovany Gonzalez MD [facility] [address] [facility] [address] [place], [place] [address] Orthopedics 02/15/17 Staci Woodward NP [facility] [address] [place], [place] 45[address] Nurse Practitioner Nurse Practitioner Psych/Mental Health 05/10/17 [place] [address] [place] [address] Assigned PCP 11/14/16 01/22/22 Reanna Smith, RD [facility] [address] [place] [address] Enrolled Nurse Dietitian, Registered 07/25/19 Katiaan Read MD [address] [place], [place] [address] Assigned Endocrinology Provider 05/02/20 08/01/21 Alexander López MD [address] [place], [place] [address] Assigned Sleep Provider 05/02/20 11/15/20 Jese Doyle MD [address] [facility] [place] [address] Assigned Pulmonology Provider 05/02/20 04/11/21 Roshni Nascimento RN Personal Advocate & Liaison (PAL) Family Medicine 08/18/20 [facility] [address] [place] [address] Pharmacist Pharmacist 08/28/20 11/26/20 Kiet Swain MD [address] [facility] [address] [place], [place] [address] Referring Physician Psychiatry 09/19/20 Winsome Pike APRN FRAME BENDER [address] [place] [address] Nurse Practitioner Psychiatry 09/19/20 Tori Hines [facility] [address] [place], [place] [address] Borematic Machine Operator Borematic Machine Operator - Clinical 09/19/20 Miranda Queen [facility] [address] [place] [address] Pharmacist Pharmacist 11/12/20 Winsome Pike APRN FRAME BENDER [address] [place] [address] [phone] Assigned Behavioral Health Provider 01/04/21 07/02/22 Marisel Armando MD [address] [place] [address] 619925 Gastroenterology 02/05/21 Marisel Armando MD [address] [place] [address] 446035 Assigned Gastroenterology Provider 03/08/21 12/24/22 Inderjit Ugalde MD [address] [facility] [address] [place], [place] [address] Assigned Surgical Provider 02/15/21 08/20/22 Wesley Barrett MD 420 [facility] [address] [place], [place] [address] Assigned Neuroscience Provider 05/10/21 Charles Jaramillo PA-C [address] [address] Assigned Musculoskeletal Provider 04/26/21 10/15/22 [facility] [address] [place] [address] Assigned MTM Pharmacist 12/05/21 03/26/22 [place] [address] [place] [address] Assigned PCP 01/23/22 05/14/22 Miranda Queen [facility] [address] [place] [address] Assigned MTM Pharmacist 04/07/22 05/14/22 [place] [address] [place] [address] Assigned PCP 05/15/22 Katiana Read MD [address] [place] [address] Assigned Endocrinology Provider 06/19/22 [place] [address] [place] [address] Assigned Behavioral Health Provider 07/03/22 12/31/22 Deena Garza APRN FRAME BENDER [address] [place] [address] Assigned Pain Medication Provider 07/19/22 10/29/22 Mary Del Cid, RAFAEL [address] [place] [address] Nurse Practitioner Nurse Practitioner 10/18/22 Elham Stack, [facility] [address] [place] [address] Pharmacist Pharmacist 10/19/22 Emerita Potter, [facility] Clinic Bulk Clerk Borematic Machine Operator - Clinical 10/29/22 11/02/22 Mary Del Cid, RAFAEL [address] [place] [place] [address] Assigned Pain Medication Provider 10/30/22 12/03/22 Michelle Guzman, ALDOM, Podiatry/Foot and Ankle Surgery [address] [place] [address] Assigned Musculoskeletal Provider 10/16/22 04/08/23 [place] [address] [place] [address] Assigned Pain Medication Provider 12/04/22 04/01/23 [place] [address] [place] [address] Nurse Practitioner Nurse Practitioner 01/17/23 01/17/23 Aubrey Jones MD [address] [place] [address] Cardiovascular Disease 03/28/23 Blanquita Morales Enrolled Nurse Diabetes Education 04/25/23 Aubrey Jones MD [address] [place] [address] Assigned Heart and Vascular Provider 05/07/23 documented as of this encounter
--- OUTSIDE RECORDS SUMMARY | 2023-08-03 10:13 | XMS_ITS | Encounter Summary ---
Author Name Unknown Organization [facility] Address [address] [place] [address]. [place] [address] Care Team Providers Care Nutrition Counselor Name Role Phone Len Adhikari MD Primary Care Provider [phone] Jovany Gonzalez MD Unavailable [phone] CrissyStaci jeong STRAIGHT KNIFE MACHINE CUTTER Unavailable [phone] Len Adhikari MD Unavailable Reanna Smith RD Unavailable Katiana Read MD Unavailable [phone] Alexander López MD Unavai lable Jese Doyle MD Unavailable +[phone] Roshni Nascimento RN Unavailable Unavailable Johana Groves [facility] Unavailable +[phone] Kiet Swain MD Unavailable [phone] Winsome Pike APRN HOME CARE MUSIC THERAPIST Unavailable +[phone] Tori Hines [facility] Unavailable Miranda Queen [facility] Unavailable Unavailable Winsome Pike APRN HOME CARE MUSIC THERAPIST Unavailable +[phone] Marisel Armando MD Unavailable Marisel Armando MD Unavailable Inderjit Ugalde MD Unavailable [phone] Wesley Barrett MD Unavailable [phone] Charles Jaramillo PA-C Unavailable [phone] Miranda Queen [facility] Unavailable Unavailable Leeann Rinaldi MD Unavailable Miranda Queen [facility] Unavailable Unavailable Dyan Fuentes MD Primary Care Provider [phone] Dyan Fuentes MD Unavailable +[phone] Katiana Read MD Unavailable [phone] Meme Singleton PhD Unavailable +[phone] Deena Garza MINES SAFETY ENGINEER HOME CARE MUSIC THERAPIST Unavailable +[phone] Mary Del Cid NP Unavailable + [phone] Elham Stack [facility] Unavailable Emerita Potter FISHING VESSEL DECKHAND Unavailable +[phone] Mary Del Cid NP Unavailable [phone] Michelle Guzman DPM, Podiatry /Foot and Ankle Surgery Unavailable Dyan Fuentes MD Unavailable +[phone] Mary Del Cid NP Unavailable + [phone] Aubrey Jones MD Unavailable [phone] Blanquita Morales Unavailable Unavailable Aubrey Jones MD Unavailable +[phone] Encounter Details Date Type Department Care Team (Late st Contact Info) Description 11/13/2020 [facility] Treatment Plan [facility] [address] [place] [address] Oswaldo Ch MD Mzinga [address] [place] [address] 9[address] [place], [place] [address] Justo, Tamiko, GAS DISPENSER Generalized anxiety disorder Social History Tobacco Use Types Packs/Day Years [...] How often do you attend chur or episcopalian services? Never 09/20/2020 Do you [...] Answer Date Recorded PHQ-2 Score 6 11/06/2020 [facility] Occupat ional Health - Occupational Stress [...] st Contact Info) Description 08/18/2023 3:00 PM AUDIO PRODUCTION MANAGER Office Visit [facility] [address] [place] [phone] Katiana Read MD [address] [place] [address] documented as of this encounter Visit Diagnoses Diagnosis Generalized anxiety disorder documented in this encounter Additional Health [...] Assessment Noted Time PHQ-9 Depression Total Score: 20 021 8:29 AM CDT documented as of this encounter Care Teams Nutrition Counselor Relationship Specialty Start Date End Date Len Adhikari MD PCP - General Family Practice 11/08/16 05/09/22 [place] [address] [place] [address] PCP - General Family Medicine 05/18/22 Jovany Gonzalez MD [facility] [address] [facility] 605 [place] [address] Orthopedics 02/15/17 Staci Woodward STRAIGHT KNIFE MACHINE CUTTER [place] [address] [place] [address] Nurse Practitioner Nurse Practitioner Psych/Mental Health 05/10/17 [place] [address] [place] [address] Assigned PCP 11/14/16 01/22/22 Reanna Smith, [facility] [address] [place] [address] Customs Compliance Analyst Dietitian, Registered 07/25/19 Katiana Read MD [address] [place] [address] Assigned Endocrinology Provider 05/02/20 08/01/21 Alexander López MD [address] [place], [place] [address] Assigned Sleep Provider 05/02/20 11/15/20 Jese Doyle MD [address] [facility] [place], [place] [address] Assigned Pulmonology Provider 05/02/20 04/11/21 Roshni Nascimento, RN Personal Advocate & Liaison (PAL) Family Medicine 08/18/20 Johana Grvoes, [facility] [address] [place] [place] [phone] Pharmacist Pharmacist 08/28/20 11/26/20 Kiet Swain MD [address] [facility] [address] [place], [place] [address] Referring Physician Psychiatry 09/19/20 Winsome Pike APRN HOME CARE MUSIC THERAPIST [address] [place] [address] [phone] Nurse Practitioner Psychiatry 09/19/20 Tori Hines, [facility] [address] [place], [place] [phone] Aquatic Habitat Biologist Aquatic Habitat Biologist - Clinical 09/19/20 Miranda Queen [facility] [address] [place] [address] Pharmacist Pharmacist 11/12/20 Winsome Pike APRN HOME CARE MUSIC THERAPIST [address] [place] [address] [phone] Assigned Behavioral Health Provider 01/04/21 07/02/22 Marisel Armando MD [address] [place] [address] 547565 Gastroenterology 02/05/21 Marisel Armando MD [address] [place] [address] Assigned Gastroenterology Provider 03/08/21 12/24/22 Inderjit Ugalde MD [address] [facility] 300 [place] [address] Assigned Surgical Provider 02/15/21 08/20/22 Wesley Barrett MD [address] [place] [address] Assigned Neuroscience Provider 05/10/21 Charles Jaramillo PA-C [address] [facility] 450 [place] [address] Assigned Musculoskeletal Provider 04/26/21 10/15/22 Miranda Queen [facility] [address] [place] [address] Assigned MTM Pharmacist 12/05/21 03/26/22 [place] [address] [place] [address] Assigned PCP 01/23/22 05/14/22 Miranda Queen [facility] [address] [place] [address] Assigned MTM Pharmacist 04/07/22 05/14/22 [place] [address] [place] [address] Assigned PCP 05/15/22 Katiana Read MD [address] [place] [address] 200 [place] [address] Assigned Endocrinology Provider 06/19/22 [place] [address] [place] 5[address]87 Assigned Behavioral Health Provider 07/03/22 12/31/22 Deena Garza, MINES SAFETY ENGINEER HOME CARE MUSIC THERAPIST [address] [place] [address] Assigned Pain Medication Provider 07/19/22 10/29/22 Mary Del Cid, RAFAEL [address] [place] [address] Nurse Practitioner Nurse Practitioner 10/18/22 Elham Stack, [facility] [address] [place] [address] Pharmacist Pharmacist 10/19/22 Emerita Potter, [facility] Clinic Storage Battery Inspector Aquatic Habitat Biologist - Clinical 10/29/22 11/02/22 [place] [address] [address] [place] [address] Assigned Pain Medication Provider 10/30/22 12/03/22 Michelle Guzman DPM, Podiatry/Foot and Ankle Surgery [address] [place] [address] Assigned Musculoskeletal Provider 10/16/22 04/08/23 [place] [address] [place] [address] Assigned Pain Medication Provider 12/04/22 04/01/23 [place] [address] [place] [address] Nurse Practitioner Nurse Practitioner 01/17/23 01/17/23 Aubrey Jones MD [address] [place] [address] Cardiovascular Disease 03/28/23 Blanquita Morales Customs Compliance Analyst Diabetes Education 04/25/23 Aubrey Jones MD [address] [place] [address] Assigned Heart and Vascular Provider 05/07/23 documented as of this encounter
--- OUTSIDE RECORDS SUMMARY | 2023-08-03 10:13 | XMS_ITS | Encounter Summary ---
Author Name Unknown Organization [facility] Address [address] [place] [address]. [place] [address] Care Team Providers Care Camp Manager Name Role Phone Len Adhikari MD Primary Care Provider [phone] Jovany Gonzalez MD Unavailable [phone] CrissyStaci jeong RIVER BOAT CAPTAIN Unavailable [phone] Len Adhikari MD Unavailable Reanna Smith [address] Unavailable Katiana Read MD Unavailable [phone] Jese Doyle MD Unavailable [phone] Roshni Nascimento RN Unavailable Unavailable Kiet Swain MD Unavailable [phone] Winsome Pike APRN PAINTER FOREMAN Unavailable [phone] Tori Hines [facility] Unavailable Miranda Queen [facility] Unavailable Unavailable Winsome Pike APRN PAINTER FOREMAN Unavailable [phone] Marisel Armando MD Unavailable Marisel Armando MD Unavailable Inderjit Ugalde MD Unavailable [phone] Wesley Barrett MD Unavailable [phone] Charles Jaramillo PA-C Unavailable [phone] Miranda Queen [facility] Unavailable Unavailable Leeann Rinaldi MD Unavailable Miranda Queen [facility] Unavailable Unavailable Dyan Fuentes MD Primary Care Provider [phone] Dyan Fuentes MD Unavailable [phone] Katiana Read MD Unavailable [phone] Meme Singleton PhD Unavailable +[phone] Deena Garza ENGINEERING MGR PAINTER FOREMAN Unavailable [phone] Mary Del Cid NP Unavailable + [phone] Elham tSack [facility] Unavailable [phone] Emerita Potter HEALTH ADVOCATE Unavailable +[phone] Mary Del Cid NP Unavailable + [phone] Michelle Guzman DPM, Podiatry /Foot and Ankle Surgery Unavailable Dyan Fuentes MD Unavailable +[phone] Mary Del Cid NP Unavailable + [phone] Aubrey Jones MD Unavailable [phone] Blanquita Morales Unavailable Unavailable Aubrey Jones MD Unavailable [phone] Encounter Details Date Type Department Care Team (Late st Contact Info) Description 12/22/2020 [facility] Medical Advice [facility] [address] [place] [phone] Roshni Nascimento, RN Social History Tobacco [...] you attend chur ch or yarsani services? Never 09/20/2020 Do you belong to [...] points; Administer PHQ-9 if positive 6 12/22/2020 [facility] - Occupational Stress Questionnaire Answer Date Recorded [...] st Contact Info) Description 08/18/2023 3:00 PM NUCLEAR PLANT EQUIPMENT OPERATOR Office Visit [facility] [address] [place] [address] Katiana Read MD [address] [address] [place], [place] [address] documented as of this encounter Visit Diagnoses [...] documented as of this encounter Care Teams Camp Manager Relationship Specialty Start Date End Date Len Adhikari MD PCP - General Family Practice 11/08/16 05/09/22 [place] [address] [place] [address] PCP - General Family Medicine 05/18/22 Jovany Gonzalez MD [facility] [address] [facility] [address] [place], [place] 24[address] Orthopedics 02/15/17 Staci Woodward NP [facility] [address] [facility] [place] [place] [address] Nurse Practitioner Nurse Practitioner Psych/Mental Health 05/10/17 [place] [address] [place] [address] Assigned PCP 11/14/16 01/22/[address] [facility] [address] [place] [address] Decal Cutter Dietitian, Registered 07/25/19 Katiana Read MD [address] [facility] 200 [place], [place] 86[address] Assigned Endocrinology Provider 05/02/20 08/01/21 Jese Doyle MD [address] [place], [place] 63[address] Assigned Pulmonology Provider 05/02/20 04/11/21 Roshni Nascimento RN Personal Advocate & Liaison (PAL) Family Medicine 08/18/20 Kiet Swain MD [address] [place] [address] 247314 Referring Physician Psychiatry 09/19/20 Winsome Pike APRN PAINTER FOREMAN [address] [place] [address] 798244 Nurse Practitioner Psychiatry 09/19/20 Tori Hines [facility] [address] [place] [address] 827214 Edging Supervisor Edging Supervisor - Clinical 09/19/20 Miranda Queen RPH [address] [place] [address] Pharmacist Pharmacist 11/12/20 Winsome Pike APRN PAINTER FOREMAN [address] [place] [address] 254424 Assigned Behavioral Health Provider 01/04/21 07/02/22 Marisel Armando MD [address] [place] [address] Gastroenterology 02/05/21 Marisel Armando MD [address] [place] [address] Assigned Gastroenterology Provider 03/08/21 12/24/22 Inderjit Ugalde MD [address] [facility] 300 [place] [address] Assigned Surgical Provider 02/15/21 08/20/22 Wesley Barrett MD [address] [facility] 96 [place] [address] Assigned Neuroscience Provider 05/10/21 Charles Jaramillo PA-C [address] [address] Assigned Musculoskeletal Provider 04/26/21 10/15/22 Miranda Queen [facility] [address] [place] [address] Assigned MTM Pharmacist 12/05/21 03/26/22 [place] [address] [place] [address] Assigned PCP 01/23/22 05/14/22 Miranda Queen [facility] [address] [place] [address] Assigned MTM Pharmacist 04/07/22 05/14/22 [place] [address] [place] [address] Assigned PCP 05/15/22 Katiana Read MD [address] [facility] 200 [place] [address] Assigned Endocrinology Provider 06/19/22 [place] PhD [address] [place] [address] Assigned Behavioral Health Provider 07/03/22 12/31/22 Deena Garza APRN PAINTER FOREMAN [address] [place] [address] Assigned Pain Medication Provider 07/19/22 10/29/22 Mary Del Cid, RAFAEL [address] [place] [address] Nurse Practitioner Nurse Practitioner 10/18/22 Elham Stack, [facility] [address] [place] [address] Pharmacist Pharmacist 10/19/22 Emerita Potter, [facility] Clinic Solvent Process Extractor Operator Edging Supervisor - Clinical 10/29/22 11/02/22 [place] [address] [address] [place] [address] Assigned Pain Medication Provider 10/30/22 12/03/22 Michelle Guzman, DPM, Podiatry/Foot and Ankle Surgery [address] [place] [address] Assigned Musculoskeletal Provider 10/16/22 04/08/23 [place] [address] [place] [address] Assigned Pain Medication Provider 12/04/22 04/01/23 [place] [address] [place] [address] Nurse Practitioner Nurse Practitioner 01/17/23 01/17/23 Aubrey Jones MD [address] [place] [address] Cardiovascular Disease 03/28/23 Blanquita Morales Decal Cutter Diabetes Education 04/25/23 Aubrey Jones MD [address] [place] [address] Assigned Heart and Vascular Provider 05/07/23 documented as of this encounter
--- OUTSIDE RECORDS SUMMARY | 2023-08-03 10:13 | XMS_ITS | Encounter Summary ---
Author Name Unknown Organization [facility] Address [address] [place] [address]. [place] [address] Care Team Providers Care Panel Sewer Name Role Phone Len Adhikari MD Primary Care Provider Jovany Gonzalez MD Unavailable CrissyStaci jeong CTO Unavailable [phone] Len Adhikari MD Unavailable Reanna Smith RD Unavailable Katiana Read MD Unavailable [phone] Jese Doyle MD Unavailable [phone] Roshni Nascimento RN Unavailable Unavailable Kiet Swain MD Unavailable [phone] Winsmoe Pike APRN MECHANICAL ENGINEERING TECHNICIAN Unavailable +[phone] Tori Hines [facility] Unavailable Miranda Queen [facility] Unavailable Unavailable Winsome Pike APRN MECHANICAL ENGINEERING TECHNICIAN Unavailable [phone] Marisel Armando MD Unavailable Marisel Armando MD Unavailable Inderjit Ugalde MD Unavailable [phone] Wesley Barrett MD Unavailable +[phone] Charles Jaramillo PA-C Unavailable [phone] Miranda Queen [facility] Unavailable Unavailable Leeann Rinaldi MD Unavailable Miranda Queen [facility] Unavailable Unavailable Dyan Fuentes MD Primary Care Provider [phone] Dyan Fuentes MD Unavailable [phone] Katiana Read MD Unavailable +[phone] Meme Singleton PhD Unavailable +[phone] Deena Garza COUNTERINTELLIGENCE SPECIALIST MECHANICAL ENGINEERING TECHNICIAN Unavailable +[phone] Mary Del Cid NP Unavailable + [phone] Elham Stack [facility] Unavailable [phone] Emerita Potter EXCAVATING SUPERVISOR Unavailable +[phone] Mary Del Cid NP Unavailable + [phone] Michelle Guzman DPM, Podiatry /Foot and Ankle Surgery Unavailable Dyan Fuentes MD Unavailable +[phone] Mary Del Cid NP Unavailable + [phone] Aubrey Jones MD Unavailable [phone] Blanquita Morales Unavailable Unavailable Aubrey Jones MD Unavailable +[phone] Encounter Details Date Type Department Care Team (Late st Contact Info) Description 12/10/2020 [facility] Medical Advice [facility] [address] [place] [phone] Lenka Healy Social History Tobacco Use Types Packs/Day Years [...] you attend chur ch or amish services? Never 09/20/2020 Do you belong to [...] 09/20/2020 PHQ-2 Answer Date Recorded PHQ-2 Score 5 11/19/2020 [facility] - Occupational Stress Questionnaire Answer Date [...] st Contact Info) Description 08/18/2023 3:00 PM KEY HOLDER Office Visit [facility] [address] [place] [address] Katiana Read MD [address] [place] [address] documented as of this encounter Visit Diagnoses [...] Assessment Noted Time PHQ-9 Depression Total Score: 14 021 7:02 AM CDT documented as of this encounter Care Teams Panel Sewer Relationship Specialty Start Date End Date Len Adhikari MD PCP - General Family Practice 11/08/16 05/09/22 [place] [address] [place] [address] PCP - General Family Medicine 05/18/22 Jovany Gonzalez MD [facility] [address] [facility] [address] [place], [place] [address] Orthopedics 02/15/17 Staci Woodward, CTO [facility] [address] [facility] [place] [place] [address] Nurse Practitioner Nurse Practitioner Psych/Mental Health 05/10/17 [place] [address] [place] [address] Assigned PCP 11/14/16 01/22/[address] [facility] [address] [place] [address] Emergency Department Coordinator Dietitian, Registered 07/25/19 Katiana Read MD [address] [facility] 200 [place] [address] Assigned Endocrinology Provider 05/02/20 08/01/21 Jese Doyle MD 9[address] [place], [place] 830905 Assigned Pulmonology Provider 05/02/20 04/11/21 Roshni Nascimento, RN Personal Advocate & Liaison (PAL) Family Medicine 08/18/20 Kiet Swain MD [address] [place] [address] 507214 Referring Physician Psychiatry 09/19/20 Winsome Pike APRN MECHANICAL ENGINEERING TECHNICIAN [address] [place] [address] 332104 Nurse Practitioner Psychiatry 09/19/20 Tori Hines [facility] [address] [place] [address] 074894 Mushroom Cultivator Mushroom Cultivator - Clinical 09/19/20 [place] [address] [place] [address] Pharmacist Pharmacist 11/12/20 Winsome Pike APRN MECHANICAL ENGINEERING TECHNICIAN [address] [place] [address] Assigned Behavioral Health Provider 01/04/21 07/02/22 Marisel Armando MD [address] [place] [address] Gastroenterology 02/05/21 Marisel Armando MD [address] [place] [address] Assigned Gastroenterology Provider 03/08/21 12/24/22 Inderjit Ugalde MD [address] [facility] 300 [place] [address] Assigned Surgical Provider 02/15/21 08/20/22 Wesley Barrett MD 420 [facility] 96 [place] [address] Assigned Neuroscience Provider 05/10/21 Charles Jaramillo PA-C [address] [address] Assigned Musculoskeletal Provider 04/26/21 10/15/22 Miranda Queen [facility] [address] [place] [address] Assigned MTM Pharmacist 12/05/21 03/26/22 [place] [address] [place] [address] Assigned PCP 01/23/22 05/14/22 Miranda Queen [facility] [address] [place] [address] Assigned MTM Pharmacist 04/07/22 05/14/22 [place] [address] [place] [address] Assigned PCP 05/15/22 Katiana Read MD [address] [facility] 200 [place], [place] 212040 Assigned Endocrinology Provider 06/19/22 [place] [address] [facility] [place] [address] Assigned Behavioral Health Provider 07/03/22 12/31/22 Deena Garza, COUNTERINTELLIGENCE SPECIALIST MECHANICAL ENGINEERING TECHNICIAN [address] [place] [place] [address] Assigned Pain Medication Provider 07/19/22 10/29/22 Mary Del Cid, RAFAEL [address] [place] [place] [address] Nurse Practitioner Nurse Practitioner 10/18/22 Elham Stack, [facility] [address] [facility] [place], [place] [address] Pharmacist Pharmacist 10/19/22 Emerita Potter, [facility] Clinic Project Internship Mushroom Cultivator - Clinical 10/29/22 11/02/22 [place] [address] [place] [place] [address] Assigned Pain Medication Provider 10/30/22 12/03/22 Michelle Guzman, DPM, Podiatry/Foot and Ankle Surgery [address] [facility] [place] [facility] [place] [address] Assigned Musculoskeletal Provider 10/16/22 04/08/23 [place] [address] [address] [address] Assigned Pain Medication Provider 12/04/22 04/01/23 [place] [address] [place] [place] [address] Nurse Practitioner Nurse Practitioner 01/17/23 01/17/23 Aubrey Jones MD [address] [place] [address] Cardiovascular Disease 03/28/23 Blanquita Morales Emergency Department Coordinator Diabetes Education 04/25/23 Aubrey Jones MD [address] [place] [address] Assigned Heart and Vascular Provider 05/07/23 documented as of this encounter
--- OUTSIDE RECORDS SUMMARY | 2023-08-03 10:13 | XMS_ITS | Encounter Summary ---
Author Name Unknown Organization [facility] Address [address] [place] [address] Care Team Providers Care Wind Projects Supervisor Name Role Phone Len Adhikari MD Primary Care Provider [phone] Jovany Gonzalez MD Unavailable CrissyStaci jeong LINER INSERTER Unavailable [phone] Len Adhikari MD Unavailable Reanna Smith RD Unavailable Katiana Read MD Unavailable +[phone] Jese Doyle MD Unavailable +[phone] Roshni Nascimento RN Unavailable Unavailable Johana Groves [facility] Unavailable +[phone] Kiet Swain MD Unavailable [phone] Winsome Pike APRN LOOM CONTROL CHAIN BUILDER Unavailable +[phone] [facility] Unavailable Miranda Queen [facility] Unavailable Unavailable Winsome Pike APRN LOOM CONTROL CHAIN BUILDER Unavailable [phone] Marisel Armando MD Unavailable Marisel Armando MD Unavailable Inderjit Ugalde MD Unavailable +[phone] Wesley Barrett MD Unavailable [phone] EllaCharles jimenez Michele GEIGER Unavailable +[phone] Miranda Queen [facility] Unavailable Unavailable Leeann Rinaldi MD Unavailable Miranda Queen [facility] Unavailable Unavailable Dyan Fuentes MD Primary Care Provider +[phone] Dyan Fuentes MD Unavailable +[phone] Katiana Read MD Unavailable [phone] Meme Singleton PhD Unavailable +[phone] Deena Garza MACHINE PLUG SHAPER LOOM CONTROL CHAIN BUILDER Unavailable +[phone] Mary Del Cid NP Unavailable + [phone] Elham Stack [facility] Unavailable +[phone] [facility] Unavailable +[phone] Mary Del Cid NP Unavailable + [phone] Michelle Guzman DPM, Podiatry /Foot and Ankle Surgery Unavailable Dyan Fuentes MD Unavailable +[phone] Mary Del Cid NP Unavailable [phone] Aubrey Jones MD Unavailable [phone] Blanquita Morales Unavailable Unavailable Aubrey Jones MD Unavailable +[phone] Encounter Details Date Type Department Care Team (Late st Contact Info) Description 11/18/2020 [facility] [address] [place] [address] Gavin Patel Social History Tobacco Use Types [...] often do you attend chur ch or methodist services? Never 09/20/2020 Do you belong to any clubs o r organizations such as mormonism groups, unions, fraternal or athletic groups, or [...] Answer Date Recorded PHQ-2 Score 5 11/19/2020 [facility] - Occupational Stress Questionnaire Answer [...] have Coronavirus / COVID-19? No / Unsure 11/20/2020 4:44 PM CDT documented as of this encounter Plan of Treatment Upcoming Encounters Date Type Department Care Team (Late st Contact Info) Description 08/18/2023 3:00 PM GROCERY SUPERVISOR Office Visit [facility] [address] [place] [address] Katiana Read MD [address] [place] [address] documented as of this encounter Visit Diagnoses [...] documented as of this encounter Care Teams Wind Projects Supervisor Relationship Specialty Start Date End Date Len Adhikari MD PCP - General Family Practice 11/08/16 05/09/22 [place] [address] [place] [address] PCP - General Family Medicine 05/18/22 Jovany Gonzalez MD [facility] [address] [facility] [address] [place] [address] Orthopedics 02/15/17 Staci Woodward LINER INSERTER [facility] [address] [place], [place] 7[address] Nurse Practitioner Nurse Practitioner Psych/Mental Health 05/10/17 [place] [address] [place] [address] Assigned PCP 11/14/16 01/22/[address] [facility] [address] [place] [address] Rn Wound Care Dietitian, Registered 07/25/19 Katiana Read MD [address] [facility] 200 [place], [place] 108390 Assigned Endocrinology Provider 05/02/20 08/01/21 Jese Doyle MD 909 [place], [place] 451065 Assigned Pulmonology Provider 05/02/20 04/11/21 Roshni Nascimento RN Personal Advocate & Liaison (PAL) Family Medicine 08/18/20 [facility] 1440 [facility] [place] [address] Pharmacist Pharmacist 08/28/20 11/26/20 Kiet Swain MD [address] [place] [address] 105984 Referring Physician Psychiatry 09/19/20 Winsome Pike APRN LOOM CONTROL CHAIN BUILDER [address] [place] [address] Nurse Practitioner Psychiatry 09/19/20 Tori Hines, [facility] [address] [place] [address] Bag Printer Bag Printer - Clinical 09/19/20 Miranda Queen, [facility] [address] [place] [address] Pharmacist Pharmacist 11/12/20 Winsome Pike APRN LOOM CONTROL CHAIN BUILDER [address] [place] [address] 106644 Assigned Behavioral Health Provider 01/04/21 07/02/22 Marisel Armando MD [address] [place] [address] 870425 Gastroenterology 02/05/21 Marisel Armando MD [address] [place] [address] 986435 Assigned Gastroenterology Provider 03/08/21 12/24/22 Inderjit Ugalde MD [address] [facility] 300 [place], [place] 947357 Assigned Surgical Provider 02/15/21 08/20/22 Wesley Barrett MD 420 [facility] [address] [place], [place] 7430[address] Assigned Neuroscience Provider 05/10/21 Charles Jaramillo PA-C [address] [address] Assigned Musculoskeletal Provider 04/26/21 10/15/22 Miranda Queen [facility] [address] [place] [address] Assigned MTM Pharmacist 12/05/21 03/26/22 [place] [address] [place] [address] Assigned PCP 01/23/22 05/14/22 Miranda Queen [facility] [address] [place] [address] Assigned MTM Pharmacist 04/07/22 05/14/22 [place] [address] [place] [address] Assigned PCP 05/15/22 Katiana Read MD [address] [address] Assigned Endocrinology Provider 06/19/22 Meme Sing[place] PhD [address] [place] [address] Assigned Behavioral Health Provider 07/03/22 12/31/22 Deena Garza APRN LOOM CONTROL CHAIN BUILDER [address] [place] [address] Assigned Pain Medication Provider 07/19/22 10/29/22 Mary Del Cid, RAFAEL [address] [place] [address] Nurse Practitioner Nurse Practitioner 10/18/22 [facility] 3033 [place] [address] Pharmacist Pharmacist 10/19/22 Emerita Potter, [facility] Clinic Finished Goods Stock Clerk Bag Printer - Clinical 10/29/22 11/02/22 [place] [address] [address] [place] [address] Assigned Pain Medication Provider 10/30/22 12/03/22 Michelle Guzman, ALDOM, Podiatry/Foot and Ankle Surgery [address] [place] [address] Assigned Musculoskeletal Provider 10/16/22 04/08/23 [place] [address] [place] [address] Assigned Pain Medication Provider 12/04/22 04/01/23 [place] [address] [place] [address] Nurse Practitioner Nurse Practitioner 01/17/23 01/17/23 Aubrey Jones MD [address] [place] [address] Cardiovascular Disease 03/28/23 Blanquita Morales Rn Wound Care Diabetes Education 04/25/23 Aubrey Jones MD [address] [place] [address] Assigned Heart and Vascular Provider 05/07/23 documented as of this encounter
--- OUTSIDE RECORDS SUMMARY | 2023-08-03 10:13 | XMS_ITS | Encounter Summary ---
Author Name Unknown Organization [facility] Address [address] [place] [address]. [place] [address] Care Team Providers Care Stone Lathe Operator Name Role Phone Len Adhikari MD Primary Care Provider Jovany Gonzalez MD Unavailable CrissyStaci jeong MINE DEVELOPMENT ENGINEER Unavailable [phone] Len Adhikari MD Unavailable Reanna Smith RD Unavailable Katiana Read MD Unavailable [phone] Jese Doyle MD Unavailable +[phone] Roshni Nascimento RN Unavailable Unavailable Kiet Swain MD Unavailable [phone] Winsome Pike APRN FILLER SHAKER Unavailable +[phone] Tori Hines [facility] Unavailable Miranda Queen [facility] Unavailable Unavailable Winsome Pike APRN FILLER SHAKER Unavailable [phone] Marisel Armando MD Unavailable Marisel Armando MD Unavailable Inderjit Ugalde MD Unavailable [phone] Wesley Barrett MD Unavailable [phone] Charles Jaramillo PA-C Unavailable [phone] Miranda Queen [facility] Unavailable Unavailable Leeann Rinaldi MD Unavailable Miranda Queen [facility] Unavailable Unavailable Dyan Fuentes MD Primary Care Provider + [phone] Dyan Fuentes MD Unavailable +[phone] Katiana Read MD Unavailable [phone] Meme Singleton PhD Unavailable [phone] Deena Garza WATER QUALITY MANAGER FILLER SHAKER Unavailable +[phone] Mary Del Cid NP Unavailable + [phone] Elham Stack [facility] Unavailable +[phone] Emerita Potter CLINIC COORDINATOR Unavailable [phone] Mary Del Cid NP Unavailable + [phone] Michelle Guzman DPM, Podiatry /Foot and Ankle Surgery Unavailable Dyan Fuentes MD Unavailable [phone] Mary Del Cid NP Unavailable [phone] Aubrey Jones MD Unavailable [phone] Blanquita Morales Unavailable Unavailable Aubrey Jones MD Unavailable [phone] Encounter Details Date Type Department Care Team (Late st Contact Info) Description 12/22/2020 [facility] Medical Advice [facility] [address] F[address] [address] Tori Hines, [facility] [address] [place], [place] 737714 Social History Tobacco Use Types Packs/Day Years [...] How often do you attend chur or amish services? Never 09/20/2020 Do you [...] points; Administer PHQ-9 if positive 6 12/22/2020 [facility] - Occupational [...] st Contact Info) Description 08/18/2023 3:00 PM UPHOLSTERY SEWER Office Visit [facility] [address] [place] [address] Katiana Read MD [address] [place] [address] documented as of this encounter Visit Diagnoses [...] documented as of this encounter Care Teams Stone Lathe Operator Relationship Specialty Start Date End Date Len Adhikari MD PCP - General Family Practice 11/08/16 05/09/22 [place] [address] [place] [address] PCP - General Family Medicine 05/18/22 Jovany Gonzalez MD [facility] [address] [facility] [address] [place], [place] 152985 Orthopedics 02/15/17 Staci Woodward NP [place] [address] [address] [place], [place] 798457 Nurse Practitioner Nurse Practitioner Psych/Mental Health 05/10/17 [place] [address] [place] [address] Assigned PCP 11/14/16 01/22/[address] [facility] [address] [place] [address] Metal Riveting Machine Operator Dietitian, Registered 07/25/19 Katiana Read MD [address] [facility] 200 [place], [place] 396540 Assigned Endocrinology Provider 05/02/20 08/01/21 Jese Doyle MD 909 [place], [place] 213515 Assigned Pulmonology Provider 05/02/20 04/11/21 Roshni Nascimento, ZITA Personal Advocate & Liaison (PAL) Family Medicine 08/18/20 Kiet Swain MD [address] [place] [address] [phone] Referring Physician Psychiatry 09/19/20 Winsome Pike APRN FILLER SHAKER [facility] [address] [address] Nurse Practitioner Psychiatry 09/19/20 Tori Hines [facility] [address] [place] [address] Floor Grinder Floor Grinder - Clinical 09/19/20 Miranda Queen [facility] [address] [place] [address] Pharmacist Pharmacist 11/12/20 Winsome Pike APRN FILLER SHAKER [address] [place], [place] 112814 Assigned Behavioral Health Provider 01/04/21 07/02/22 Marisel Armando MD [address] [place] [address] 847145 Gastroenterology 02/05/21 Marisel Armando MD [address] [place] [address] 198785 Assigned Gastroenterology Provider 03/08/21 12/24/22 Inderjit Ugalde MD [address] [facility] 300 [place], [place] 575[address] Assigned Surgical Provider 02/15/21 08/20/22 Wesley Barrett MD 420 [facility] 96 [place], [place] 652515 Assigned Neuroscience Provider 05/10/21 Charles Jaramillo PA-C [address] [address] Assigned Musculoskeletal Provider 04/26/21 10/15/22 Miranda Queen [facility] [address] [facility] [place] [address] Assigned MTM Pharmacist 12/05/21 03/26/22 [place] [address] [place] [address] Assigned PCP 01/23/22 05/14/22 Miranda Queen R[facility] [address] [place] [address] Assigned MTM Pharmacist 04/07/22 05/14/22 [place] [address] [place] [address] Assigned PCP 05/15/22 Katiana Read MD [address] [place] [address] Assigned Endocrinology Provider 06/19/22 [place] [address] [place] [address] Assigned Behavioral Health Provider 07/03/22 12/31/22 Deena Garza APRN FILLER SHAKER [address] [place] [address] Assigned Pain Medication Provider 07/19/22 10/29/22 [place] [address] [place] 043557 Nurse Practitioner Nurse Practitioner 10/18/22 Elham Stack, [facility] 3033 [place] [address] Pharmacist Pharmacist 10/19/22 Emerita Potter, [facility] Clinic Home Care Scheduler Floor Grinder - Clinical 10/29/22 11/02/22 [place] [address] [place] [address] Assigned Pain Medication Provider 10/30/22 12/03/22 Michelle Guzman DPM, Podiatry/Foot and Ankle Surgery [address] [place] [address] Assigned Musculoskeletal Provider 10/16/22 04/08/23 [place] [address] [place] [address] Assigned Pain Medication Provider 12/04/22 04/01/23 [place] [address] [place] [address] Nurse Practitioner Nurse Practitioner 01/17/23 01/17/23 Aubrey Jones MD [address] [place] [address] Cardiovascular Disease 03/28/23 Blanquita Morales Metal Riveting Machine Operator Diabetes Education 04/25/23 Aubrey Jones MD [address] [place] [address] Assigned Heart and Vascular Provider 05/07/23 documented as of this encounter
--- OUTSIDE RECORDS SUMMARY | 2023-08-03 10:13 | XMS_ITS | Encounter Summary ---
Author Name Unknown Organization [facility] Address [address] [place] [address]. [place] [address] Care Team Providers Care Service Correspondent Name Role Phone Len Adhikari MD Primary Care Provider [phone] Jovany Gonzalez MD Unavailable CrissyStaci jeong SENIOR NET ENGINEER Unavailable [phone] Len Adhikari MD Unavailable Reanna Smith RD Unavailable Katiana Read MD Unavailable +[phone] Alexander López MD Unavai lable Jese Doyle MD Unavailable [phone] Roshni Nascimento RN Unavailable Unavailable Johana Groves [facility] Unavailable +[phone] Kiet Swain MD Unavailable [phone] Winsome Pike APRN FINISHING FRAME RUNNER Unavailable +[phone] Tori Hines [facility] Unavailable Miranda Queen [facility] Unavailable Unavailable Winsome Pike APRN FINISHING FRAME RUNNER Unavailable +[phone] Marisel Armando MD Unavailable Marisel Armando MD Unavailable Inderjit Ugalde MD Unavailable [phone] Wesley Barrett MD Unavailable [phone] Charles Jaramillo PA-C Unavailable + [phone] Miranda Queen [facility] Unavailable Unavailable Leeann Rinaldi MD Unavailable Miranda Queen [facility] Unavailable Unavailable Dyan Fuentes MD Primary Care Provider [phone] Dyan Fuentes MD Unavailable [phone] Katiana Read MD Unavailable [phone] Meme Singleton PhD Unavailable [phone] Deena Garza VIAL GAUGER FINISHING FRAME RUNNER Unavailable +[phone] Mary Del Cid NP Unavailable + [phone] Elham Stack [facility] Unavailable [phone] Emerita Potter SLAT PICKLER Unavailable +[phone] Mary Del Cid NP Unavailable [phone] Michelle Guzman DPM, Podiatry /Foot and Ankle Surgery Unavailable Dyan Fuentes MD Unavailable [phone] Mary Del Cid NP Unavailable + [phone] Aubrey Jones MD Unavailable [phone] Blanquita Morales Unavailable Unavailable Aubrey Jones MD Unavailable [phone] Reason for Referral * Diagnostic Imaging Mammo (Routine) - Closed Specialty Diagnoses / Procedures Referred By Jose R kelly Referred To Contact Diagnoses Encounter for screening mammogram for breast cancer Procedures *[place] Scre[place] [address] [place] [address] Referral ID Status Reason Start Date Expiration Date Visits Re quested Visits Authorized [id number] Closed 11/12/2020 11/12/2021 1 1 Reason for Visit * Reason Onset Date Comments MyChart Communication 11/04/2020 Encounter Details Date Type Department Care Team (Late st Contact Info) Description 11/04/2020 MyC Medical Advice [facility] [address] [place] [address] [place] [address] [place] [address] MyChart Communication Social History Tobacco [...] any clubs o r organizations such as mu-ism groups, unions, fraternal or athletic groups, or [...] Answer Date Recorded PHQ-2 Score 6 11/06/2020 [facility] - Occupational Stress Questionnaire Answer [...] Telephone Encounter - Len Adhikari MD - 11/12/2020 3:33 PM CDT Orders placed for imaging. * Telephone Encounter - Roshni Nascimento RN - 11/11/2020 3:05 PM CDT See my chart- PAL did respond about MTM visit Do you want DX mammogram? Pt has IP f/u visit 11/17 Roshni Nascimento RN * Telephone Encounter - Suhail Montiel RN - 11/11/2020 12:26 PM CDT Routing to [facility] 3 pool, See below Suhail Montiel RN * Telephone Encounter - Len Adhikari MD - 11/11/2020 7:07 AM CDT Where is lump located - we usually would order diagnostic mammo and US of affected area if there kushal concern specifically. documented in this encounter Plan of Treatment Upcoming Encounters Date Type Department Care Team (Late st Contact Info) Description 08/18/2023 3:00 PM PROMOTION WRITER Office Visit [facility] [address] [facility] [address] [place] [address] Katiana Read MD [address] [place] [address] Scheduled Orders Name Type Priority Associated Diagnoses Orde r Schedule *MA Screening Digital Bilateral Imaging Routine Encounter for screening mammogram for breast cancer Expected: 11/12/2020 (Approximate), Expires: 11/12/2021 documented as of this encounter Visit Diagnoses Diagnosis Encounter for screening mammogram for breast cancer- Primary Lump or mass in breast Other abnormal and inconclusive findings on diagnostic imaging of breast documented in this encounter Additional Health Concerns [...] Noted Time PHQ-9 Depression Total Score: 10 019 3:25 PM CDT documented as of this encounter Care Teams Service Correspondent Relationship Specialty Start Date End Date Len Adhikari MD PCP - General Family Practice 11/08/16 05/09/22 [place] [address] [place] [address] PCP - General Family Medicine 05/18/22 Jovany Gonzalez MD [facility] 6600 [facility] 605 [place] [address] Orthopedics 02/15/17 Staci Woodward SENIOR NET ENGINEER [facility] [address] [place] [address] Nurse Practitioner Nurse Practitioner Psych/Mental Health 05/10/17 [place] [address] [facility] [place] [address] Assigned PCP 11/14/16 01/22/[address] [facility] [address] [place] [address] Injection Molding Machine Setter Dietitian, Registered 07/25/19 Katiana Read MD [address] [place] [address] 200 [place] [address] Assigned Endocrinology Provider 05/02/20 08/01/21 Alexander López MD 606 24[facility] 106 [place] [address] Assigned Sleep Provider 05/02/20 11/15/20 Jese Doyle MD 909 [facility] [place] [address] Assigned Pulmonology Provider 05/02/20 04/11/21 Roshni Nascimento, RN Personal Advocate & Liaison (PAL) Family Medicine 08/18/20 Johana Groves, [facility] [address] [place] [address] Pharmacist Pharmacist 08/28/20 11/26/20 Kiet Swain MD 2450 [facility] [address] [place] [address] 001634 Referring Physician Psychiatry 09/19/20 Winsome Pike APRN FINISHING FRAME RUNNER [address] [place] [address] 657114 Nurse Practitioner Psychiatry 09/19/20 Tori Hines, [facility] [address] [place] [address] 776674 Hose Sprayer Hose Sprayer - Clinical 09/19/20 Miranda Queen [facility] [address] [place] [address] Pharmacist Pharmacist 11/12/20 Winsome Pike APRN FINISHING FRAME RUNNER [address] [place] [address] 087514 Assigned Behavioral Health Provider 01/04/21 07/02/22 Marisel Armando MD [address] [place] [address] 578265 Gastroenterology 02/05/21 Marisel Armando MD [address] [place] [address] Assigned Gastroenterology Provider 03/08/21 12/24/22 Inderjit Ugalde MD [address] [address] Assigned Surgical Provider 02/15/21 08/20/22 Wesley Barrett MD [address] [place] [address] Assigned Neuroscience Provider 05/10/21 Charles Jaramillo PA-C 6545 [facility] 450 [place] [address] Assigned Musculoskeletal Provider 04/26/21 10/15/22 [facility] [address] [place] [address] Assigned MTM Pharmacist 12/05/21 03/26/22 [place] [address] [place] [address] Assigned PCP 01/23/22 05/14/22 Miranda Queen [facility] [address] [place] [address] Assigned MTM Pharmacist 04/07/22 05/14/22 [place] [address] [place] [address] Assigned PCP 05/15/22 Katiana Read MD [address] [place] [address] 200 [place] [address] Assigned Endocrinology Provider 06/19/22 Meme Singleton, PhD [address] [place] [address] Assigned Behavioral Health Provider 07/03/22 12/31/22 Deena Garza APRN FINISHING FRAME RUNNER [address] [place] [address] Assigned Pain Medication Provider 07/19/22 10/29/22 [place] [address] [place] [address] Nurse Practitioner Nurse Practitioner 10/18/22 Elham Stack, [facility] [address] [place] [address] Pharmacist Pharmacist 10/19/22 Emerita Potter, [facility] Clinic General Ledger Accountant Hose Sprayer - Clinical 10/29/22 11/02/22 [place] [address] [place] [address] Assigned Pain Medication Provider 10/30/22 12/03/22 Michelle Guzman, DPM, Podiatry/Foot and Ankle Surgery [address] [place] [address] Assigned Musculoskeletal Provider 10/16/22 04/08/23 [place] [address] [place] [address] Assigned Pain Medication Provider 12/04/22 04/01/23 [place] [address] [place] [address] Nurse Practitioner Nurse Practitioner 01/17/23 01/17/23 Aubrey Jones MD [address] [place] [address] Cardiovascular Disease 03/28/23 Blanquita Morales Injection Molding Machine Setter Diabetes Education 04/25/23 Aubrey Jones MD [address] [place] 629535 Assigned Heart and Vascular Provider 05/07/23 documented as of this encounter
--- OUTSIDE RECORDS SUMMARY | 2023-08-03 10:13 | XMS_ITS | Encounter Summary ---
Author Name Unknown Organization [facility] Address [address] [place] [address] Care Team Providers Care Process Coordinator Name Role Phone Len Adhikari MD Primary Care Provider Jovany Gonzalez MD Unavailable CrissyStaci jeong DIGITAL IMAGING TECHNICIAN Unavailable [phone] Len Adhikari MD Unavailable Reanna Smith RD Unavailable Katiana Read MD Unavailable +[phone] Jese Doyle MD Unavailable +[phone] Roshni Nascimento RN Unavailable Unavailable Johana Groves [facility] Unavailable [phone] Kiet Swain MD Unavailable [phone] Winsome Pike APRN ENVIRONMENTAL COMPLIANCE TECHNICIAN Unavailable +[phone] Tori Hines [facility] Unavailable Miranda Queen [facility] Unavailable Unavailable Winsome Pike APRN ENVIRONMENTAL COMPLIANCE TECHNICIAN Unavailable +[phone] Marisel Armando MD Unavailable Marisel Armando MD Unavailable Inderjit Ugalde MD Unavailable +[phone] Wesley Barrett MD Unavailable +[phone] EllaCharles jimenez Michele GEIGER Unavailable +[phone] Miranda Queen [facility] Unavailable Unavailable Leeann Rinaldi MD Unavailable Miranda Queen [facility] Unavailable Unavailable Dyan Fuentes MD Primary Care Provider [phone] Dyan Fuentes MD Unavailable [phone] Katiana Read MD Unavailable [phone] Meme Singleton PhD Unavailable +[phone] Deena Garza STAMP CLERK ENVIRONMENTAL COMPLIANCE TECHNICIAN Unavailable +[phone] Mary Del Cid DIGITAL IMAGING TECHNICIAN Unavailable + [phone] Elham Stack [facility] Unavailable +[phone] Emerita Potter [facility] Unavailable +[phone] Mary Del Cid NP Unavailable + [phone] Michelle Guzman DPM, Podiatry /Foot and Ankle Surgery Unavailable Dyan Fuentes MD Unavailable +[phone] Mary Del Cid NP Unavailable +[phone] Aubrey Jones MD Unavailable [phone] Blanquita Morales Unavailable Unavailable Aubrey Jones MD Unavailable +[phone] Reason for Visit * Reason Onset Date Comments MyChart Communication 11/24/2020 Encounter Details Date Type Department Care Team (Late st Contact Info) Description 11/24/2020 [facility] [address] [place] [address] [place] [address] [place] [address] MyChart Communication Social History Tobacco [...] you attend chur ch or restoration services? Never 09/20/2020 Do you belong to [...] Answer Date Recorded PHQ-2 Score 5 11/19/2020 [facility] [...] Telephone Encounter - Len Adhikari MD - 11/25/2020 7:28 AM CDT Refilled. * Telephone Encounter - Roshni Nascimento RN - 11/25/2020 7:09 AM CDT `see my chart related to RF request from 11/24 Roshni Nascimento, RN documented in this encounter Plan of Treatment Upcoming Encounters Date Type Department Care Team (Late st Contact Info) Description 08/18/2023 3:00 PM CLINICAL RESOURCE DIRECTOR Office Visit [facility] [address] [facility] [address] [place] [address] Katiana Read MD [address] [place], [place] [address] documented as of this encounter Visit Diagnoses [...] documented as of this encounter Care Teams Process Coordinator Relationship Specialty Start Date End Date Len Adhikari MD PCP - General Family Practice 11/08/16 05/09/22 [place] [address] [place] [address] PCP - General Family Medicine 05/18/22 Jovany Gonzalez MD [facility] [address] [facility] 605 [place] [address] Orthopedics 02/15/17 Staci Woodward, DIGITAL IMAGING TECHNICIAN [place] [address] [place] [address] Nurse Practitioner Nurse Practitioner Psych/Mental Health 05/10/17 [place] [address] [place] [address] Assigned PCP 11/14/16 01/22/[address] [facility] [address] [place] [address] Ammonia Print Operator Dietitian, Registered 07/25/19 Katiana Read MD [address] [place] [address] 200 [place] [address] Assigned Endocrinology Provider 05/02/20 08/01/21 Jese Doyle MD [address] [place] [address] Assigned Pulmonology Provider 05/02/20 04/11/21 Roshni Nascimento, ZITA Personal Advocate & Liaison (PAL) Family Medicine 08/18/20 Johana Groves, [facility] [address] [place] [address] Pharmacist Pharmacist 08/28/20 11/26/20 Kiet Swain MD [facility] [address] [place] [address] Referring Physician Psychiatry 09/19/20 Winsome Pike APRN ENVIRONMENTAL COMPLIANCE TECHNICIAN [address] [place] [address] 847794 Nurse Practitioner Psychiatry 09/19/20 Tori Hines, [facility] [address] [place] [address] [phone] Rough And Trueing Machine Operator Rough And Trueing Machine Operator - Clinical 09/19/20 Miranda Queen [facility] [address] [place] [address] Pharmacist Pharmacist 11/12/20 Winsome Pike APRN ENVIRONMENTAL COMPLIANCE TECHNICIAN [address] [place] [address] Assigned Behavioral Health Provider 01/04/21 07/02/22 Marisel Armando MD [address] [place] [address] Gastroenterology 02/05/21 Marisel Armando MD [address] [place] [address] Assigned Gastroenterology Provider 03/08/21 12/24/22 Inderjit Ugalde MD [address] [address] Assigned Surgical Provider 02/15/21 08/20/22 Wesley Barrett MD [address] [place] [address] Assigned Neuroscience Provider 05/10/21 Charles Jaramillo PA-C 6545 [facility] 450 [place] [address] Assigned Musculoskeletal Provider 04/26/21 10/15/22 Miranda Queen [facility] [address] [place] [address] Assigned MTM Pharmacist 12/05/21 03/26/22 [place] [address] [place] [address] Assigned PCP 01/23/22 05/14/22 Miranda Queen [facility] [address] [place] [address] Assigned MTM Pharmacist 04/07/22 05/14/22 [place] [address] [place] [address] Assigned PCP 05/15/22 Katiana Read MD [address] [place] [address] 200 [place] [address] Assigned Endocrinology Provider 06/19/22 [place] [address] [place] [address] Assigned Behavioral Health Provider 07/03/22 12/31/22 Deena Garza APRN ENVIRONMENTAL COMPLIANCE TECHNICIAN [address] [place] [address] Assigned Pain Medication Provider 07/19/22 10/29/22 Mary Del Cid, DIGITAL IMAGING TECHNICIAN [address] [place] [place] [address] Nurse Practitioner Nurse Practitioner 10/18/22 Elham Stack, [facility] [address] [place] [address] Pharmacist Pharmacist 10/19/22 Emerita Potter, [facility] Clinic Machine Mover Rough And Trueing Machine Operator - Clinical 10/29/22 11/02/22 [place] [address] [place] [address] Assigned Pain Medication Provider 10/30/22 12/03/22 Michelle Guzman, DPM, Podiatry/Foot and Ankle Surgery [address] [place] [address] Assigned Musculoskeletal Provider 10/16/22 04/08/23 [place] [address] [place] [address] Assigned Pain Medication Provider 12/04/22 04/01/23 [place] [address] [place] [address] Nurse Practitioner Nurse Practitioner 01/17/23 01/17/23 Aubrey Jones MD [address] [place] [address] Cardiovascular Disease 03/28/23 Blanquita Morales Ammonia Print Operator Diabetes Education 04/25/23 Aubrey Jones MD [address] [place] [address] Assigned Heart and Vascular Provider 05/07/23 documented as of this encounter
--- OUTSIDE RECORDS SUMMARY | 2023-08-03 10:13 | XMS_ITS | Encounter Summary ---
Author Name Unknown Organization [facility] Address [address] [place] [address]. [place] [address] Care Team Providers Care Web Services Manager Name Role Phone Len Adhikari MD Primary Care Provider Jovany Gonzalez MD Unavailable CrissyStaci jeong BIOFUELS PRODUCTION TECHNICIAN Unavailable [phone] Len Adhikari MD Unavailable Reanna Smith RD Unavailable Katiana Read MD Unavailable [phone] Jese Doyle MD Unavailable [phone] Roshni Nascimento RN Unavailable Unavailable Kiet Swain MD Unavailable [phone] Winsome Pike APRN VENEER LAYER Unavailable +[phone] Tori Hines [facility] Unavailable Miranda Queen [facility] Unavailable Unavailable Winsome Pike APRN VENEER LAYER Unavailable [phone] Marisel Armanod MD Unavailable Marisel Armando MD Unavailable Inderjit Ugalde MD Unavailable [phone] Wesley Barrett MD Unavailable +[phone] Charles Jaramillo PA-C Unavailable [phone] Miranda Queen [facility] Unavailable Unavailable Leeann Rinaldi MD Unavailable Miranda Queen [facility] Unavailable Unavailable Dyan Fuentes MD Primary Care Provider [phone] Dyan Fuentes MD Unavailable [phone] Katiana Read MD Unavailable [phone] Meme Singleton PhD Unavailable +[phone] Deena Garza CARE NAVIGATOR VENEER LAYER Unavailable [phone] Mary Del Cid NP Unavailable + [phone] Elham Stack [facility] Unavailable [phone] Emerita Potter MACHINE MAINTENANCE REPAIRER Unavailable [phone] Mary Del Cid NP Unavailable + [phone] Michelle Guzman DPM, Podiatry /Foot and Ankle Surgery Unavailable Dyan Fuentes MD Unavailable +[phone] Mary Del Cid NP Unavailable [phone] Aubrey Jones MD Unavailable [phone] Blanquita Morales Unavailable Unavailable Aubrey Jones MD Unavailable [phone] Encounter Details Date Type Department Care Team (Late st Contact Info) Description 12/22/2020 [facility] [id number] [place] [address] Roshni Nascimento, RN Social History Tobacco [...] often do you attend chur ch or mu-ism services? Never 09/20/2020 Do you belong to [...] points; Administer PHQ-9 if positive 6 12/22/2020 [facility] - Occupational Stress Questionnaire Answer Date [...] slept in a fdc (including now)? No 09/20/2020 Education Answer Date [...] st Contact Info) Description 08/18/2023 3:00 PM TOP LIFT CUTTER Office Visit [facility] [address] [place] [address] Katiana Read MD [address] [address] [place], [place] [address] documented as of this encounter Visit Diagnoses [...] documented as of this encounter Care Teams Web Services Manager Relationship Specialty Start Date End Date Len Adhikari MD PCP - General Family Practice 11/08/16 05/09/22 [place] [address] [place] [address] PCP - General Family Medicine 05/18/22 Jovany Gonzalez MD [facility] [address] [facility] [address] [place], [place] 3[address] Orthopedics 02/15/17 Staci Woodward NP [facility] [address] [facility] [place], [place] [address] Nurse Practitioner Nurse Practitioner Psych/Mental Health 05/10/17 [place] [address] [place] [address] Assigned PCP 11/14/16 01/22/[address] [facility] [address] [place] [address] Alliance Director Dietitian, Registered 07/25/19 Katiana Read MD [address] [facility] 200 [place], [place] [address] Assigned Endocrinology Provider 05/02/20 08/01/21 Jese Doyle MD [address] [place], [place] [address] Assigned Pulmonology Provider 05/02/20 04/11/21 Roshni Nascimento RN Personal Advocate & Liaison (PAL) Family Medicine 08/18/20 Kiet Swain MD [address] [place] [address]884 Referring Physician Psychiatry 09/19/20 Winsome Pike APRN VENEER LAYER [address] [place] [address] 934004 Nurse Practitioner Psychiatry 09/19/20 Tori Hines [facility] [address] [place] [address] 027484 Campus Rep Campus Rep - Clinical 09/19/20 Miranda Queen [facility] [address] [place] [address] Pharmacist Pharmacist 11/12/20 Winsome Pike APRN VENEER LAYER [address] [place] [address] 549754 Assigned Behavioral Health Provider 01/04/21 07/02/22 Marisel Armando MD [address] [place] [address] Gastroenterology 02/05/21 Marisel Armando MD [address] [place] [address] Assigned Gastroenterology Provider 03/08/21 12/24/22 Inderjit Ugalde MD [address] [facility] 300 [place] [address] Assigned Surgical Provider 02/15/21 08/20/22 Wesley Barrett MD [address] [facility] 96 [place] [address] Assigned Neuroscience Provider 05/10/21 Charles Jaramillo PA-C [address] [address] Assigned Musculoskeletal Provider 04/26/21 10/15/22 Miranda Queen [facility] [address] [place] [address] Assigned MTM Pharmacist 12/05/21 03/26/22 [place] [address] [place] [address] Assigned PCP 01/23/22 05/14/22 Miranda Queen [facility] [address] [place] [address] Assigned MTM Pharmacist 04/07/22 05/14/22 [place] [address] [place] [address] Assigned PCP 05/15/22 Katiana Read MD [address] [facility] 200 [place] [address] Assigned Endocrinology Provider 06/19/22 [place] PhD [address] [place] [address] Assigned Behavioral Health Provider 07/03/22 12/31/22 Deena Garza APRN VENEER LAYER [address] [place] [place] [address] Assigned Pain Medication Provider 07/19/22 10/29/22 Mary Del Cid, RAFAEL [address] [place] [address] Nurse Practitioner Nurse Practitioner 10/18/22 Elham Stack, [facility] 30[address] [place] [address] Pharmacist Pharmacist 10/19/22 Emerita Potter, [facility] Clinic Payroll Accounting Clerk Campus Rep - Clinical 10/29/22 11/02/22 [place] [address] [place] [place] [address] Assigned Pain Medication Provider 10/30/22 12/03/22 Michelle Guzman, DPM, Podiatry/Foot and Ankle Surgery [address] [place] [address] Assigned Musculoskeletal Provider 10/16/22 04/08/23 [place] [address] [place] [address] Assigned Pain Medication Provider 12/04/22 04/01/23 [place] [address] [place] [address] Nurse Practitioner Nurse Practitioner 01/17/23 01/17/23 Aubrey Jones MD [address] [place] [address] Cardiovascular Disease 03/28/23 Blanquita Morales Alliance Director Diabetes Education 04/25/23 Aubrey Jones MD [address] [place] [address] Assigned Heart and Vascular Provider 05/07/23 documented as of this encounter
--- OUTSIDE RECORDS SUMMARY | 2023-08-03 10:14 | XMS_ITS | Encounter Summary ---
Author Name Unknown Organization [facility] Address [address] [place] [address]. [place] [address] Care Team Providers Care Registered Midwife Name Role Phone Len Adhikari MD Primary Care Provider Jovany Gonzalez MD Unavailable CrissyStaci jeong CASE FOLDER Unavailable [phone] Len Adhikari MD Unavailable Reanna Smith RD Unavailable Katiana Read MD Unavailable [phone] Alexander López MD Unavai lable Jese Doyle MD Unavailable +[phone] Roshni Nascimento RN Unavailable Unavailable Johana Groves [facility] Unavailable Kiet Swain MD Unavailable [phone] Winsome Pike APRN ELDERLY SITTER Unavailable +[phone] Tori Hines [facility] Unavailable Miranda Queen [facility] Unavailable Unavailable Winsome Pike APRN ELDERLY SITTER Unavailable [phone] Marisel Armando MD Unavailable Marisel Armando MD Unavailable Inderjit Ugalde MD Unavailable [phone] Wesley Barrett MD Unavailable [phone] Charles Jaramillo PA-C Unavailable [phone] Miranda Queen [facility] Unavailable Unavailable Leeann Rinaldi MD Unavailable Miranda Queen [facility] Unavailable Unavailable Dyan Fuentes MD Primary Care Provider [phone] Dyan Fuentes MD Unavailable [phone] Katiana Read MD Unavailable [phone] Meme Singleton PhD Unavailable [phone] Deena Garza COLLEGE PRESIDENT ELDERLY SITTER Unavailable +[phone] Mary Del Cid NP Unavailable + [phone] Elham Stack [facility] Unavailable [phone] Emerita Potter SALES ADVISOR Unavailable +[phone] Mary Del Cid NP Unavailable [phone] Michelle Guzman DPM, Podiatry /Foot and Ankle Surgery Unavailable Dyan Fuentes MD Unavailable [phone] Mary Del Cid NP Unavailable [phone] Aubrey Jones MD Unavailable [phone] Blanquita Morales Unavailable Unavailable Aubrey Jones MD Unavailable [phone] Encounter Details Date Type Department Care Team (Late st Contact Info) Description 10/31/2020 [facility] Mental Health & Addiction [address] [address] Tori Hines, SALES ADVISOR [address] [place] [address] Social History Tobacco Use Types Packs/Day Years [...] do you attend chur or scientologist services? Never 09/20/2020 Do you belong to [...] PHQ-2 Answer Date Recorded PHQ-2 Score 2 01/01/2019 [facility] Occupat ional Health - Occupational Stress [...] in a nursing home (including now)? No 09/20/2020 Education Answer [...] st Contact Info) Description 08/18/2023 3:00 PM VB NET DEVELOPER Office Visit [facility] [address] [place] [address] Katiana Read MD [address] [place], [place] 3[address] documented as of this encounter Visit Diagnoses [...] documented as of this encounter Care Teams Registered Midwife Relationship Specialty Start Date End Date Len Adhikari MD PCP - General Family Practice 11/08/16 05/09/22 [place] [address] [place] [address] PCP - General Family Medicine 05/18/22 Jovany Gonzalez MD [facility] [address] [facility] 605 [place] [address] Orthopedics 02/15/17 Staci Woodward CASE FOLDER [place] [address] [place] [address] Nurse Practitioner Nurse Practitioner Psych/Mental Health 05/10/17 [place] [address] [facility] [place] [address] Assigned PCP 11/14/16 01/22/[address] [facility] [address] [place] [address] Hospital Food Service Worker Dietitian, Registered 07/25/19 Katiana Read MD [address] [facility] 200 [place] [address] Assigned Endocrinology Provider 05/02/20 08/01/21 Alexander López MD [address] [place], [place] [address] Assigned Sleep Provider 05/02/20 11/15/20 Jese Doyle MD [address] [facility] [place], [place] 7[address] Assigned Pulmonology Provider 05/02/20 04/11/21 Roshni Nascimento, RN Personal Advocate & Liaison (PAL) Family Medicine 08/18/20 Johana Groves, [facility] [address] [place] [phone] Pharmacist Pharmacist 08/28/20 11/26/20 Kiet Swain MD [address] [facility] [address] [place], [place] [address] Referring Physician Psychiatry 09/19/20 Winsome Pike APRN ELDERLY SITTER [address] [place] [address] 804574 Nurse Practitioner Psychiatry 09/19/20 Tori Hines, [facility] [address] [place], [place] [phone] Switchboard Wire Worker Helper Switchboard Wire Worker Helper - Clinical 09/19/20 Miranda Queen [facility] [address] [place] [address] Pharmacist Pharmacist 11/12/20 Winsome Pike APRN ELDERLY SITTER [address] [place] [address] [phone] Assigned Behavioral Health Provider 01/04/21 07/02/22 Marisel Armando MD [address] [place] [address] 364225 Gastroenterology 02/05/21 Marisel Armando MD [address] [place] [address] 401645 Assigned Gastroenterology Provider 03/08/21 12/24/22 Inderjit Ugalde MD [address] [facility] 300 [place] [address] Assigned Surgical Provider 02/15/21 08/20/22 Wesley Barrett MD [address] [place] [address] Assigned Neuroscience Provider 05/10/21 Charles Jaramillo PA-C 6545 [facility] 450 [place] [address] Assigned Musculoskeletal Provider 04/26/21 10/15/22 Miranda Queen [facility] [address] [place] [address] Assigned MTM Pharmacist 12/05/21 03/26/22 [place] [address] [place] [address] Assigned PCP 01/23/22 05/14/22 Miranda Queen [facility] [address] [place] [address] Assigned MTM Pharmacist 04/07/22 05/14/22 [place] [address] [place] [address] Assigned PCP 05/15/22 Katiana Read MD [address] [place] [address] 200 [place], [place] 868[address] Assigned Endocrinology Provider 06/19/22 Meme Singleton, PhD [address] [place] [address] Assigned Behavioral Health Provider 07/03/22 12/31/22 Deena Garza, COLLEGE PRESIDENT ELDERLY SITTER [address] [place] [address] Assigned Pain Medication Provider 07/19/22 10/29/22 Mary Del Cid, RAFAEL [address] [place] [address] Nurse Practitioner Nurse Practitioner 10/18/22 Elham Stack, [facility] [address] [facility] [place] [place] [address] Pharmacist Pharmacist 10/19/22 Emerita Potter, [facility] Clinic Fringe Knotter Switchboard Wire Worker Helper - Clinical 10/29/22 11/02/22 [place] [address] [place] [address] Assigned Pain Medication Provider 10/30/22 12/03/22 Michelle Guzman DPM, Podiatry/Foot and Ankle Surgery [address] [place] [address] Assigned Musculoskeletal Provider 10/16/22 04/08/23 [place] [address] [place] [address] Assigned Pain Medication Provider 12/04/22 04/01/23 [place] [address] [place] [address] Nurse Practitioner Nurse Practitioner 01/17/23 01/17/23 Aubrey Jones MD [address] [place] [address] Cardiovascular Disease 03/28/23 Blanquita Morales Hospital Food Service Worker Diabetes Education 04/25/23 Aubrey Jones MD [address] [place] [address] Assigned Heart and Vascular Provider 05/07/23 documented as of this encounter
--- OUTSIDE RECORDS SUMMARY | 2023-08-03 10:14 | XMS_ITS | Encounter Summary ---
Author Name Unknown Organization [facility] Address [address] [place] [address]. [place] [address] Care Team Providers Care Rubber Goods Finisher Name Role Phone Len Adhikari MD Primary Care Provider Jovany Gonzalez MD Unavailable CrissyStaci jeong MEDICAL RADIATION THERAPIST Unavailable [phone] Len Adhikari MD Unavailable [phone] Unavailable [phone] Katiana Read MD Unavailable [phone] Alexander López MD Unavai lable Jese Doyle MD Unavailable [phone] Roshni Nascimento RN Unavailable Unavailable Johana Groves [facility] Unavailable Kiet Swain MD Unavailable [phone] Winsome Pike APRN EARLY INTERVENTION SCHOOL PSYCHOLOGIST Unavailable [phone] Tori Hines [facility] Unavailable Miranda Queen [facility] Unavailable Unavailable Winsome Pike APRN EARLY INTERVENTION SCHOOL PSYCHOLOGIST Unavailable [phone] Marisel Armando MD Unavailable Marisel Armando MD Unavailable Inderjit Ugalde MD Unavailable [phone] Wesley Barrett MD Unavailable [phone] Charles Jaramillo PA-C Unavailable [phone] Miranda Queen [facility] Unavailable Unavailable Leeann Rinaldi MD Unavailable Miranda Queen [facility] Unavailable Unavailable Dyan Fuentes MD Primary Care Provider [phone] Dyan Fuentes MD Unavailable [phone] Katiana Read MD Unavailable [phone] Meme Singleton PhD Unavailable [phone] Deena Garza INFORMATION ASSURANCE SPECIALIST EARLY INTERVENTION SCHOOL PSYCHOLOGIST Unavailable +[phone] Mary Del Cid NP Unavailable + [phone] Elham Stack [facility] Unavailable Emerita Potter ROOFER METAL Unavailable [phone] Mary Del Cid NP Unavailable [phone] Michelle Guzman DPM, Podiatry /Foot and Ankle Surgery Unavailable Dyan Fuentes MD Unavailable [phone] Mary Del Cid NP Unavailable [phone] Aubrey Jones MD Unavailable [phone] Blanquita Morales Unavailable Unavailable Aubrey Jones MD Unavailable [phone] Encounter Details Date Type Department Care Team (Late st Contact Info) Description 10/27/2020 [facility] Mental Health & Addiction [address] [address] Tori Hines, ROOFER METAL [address] [place] [address] Social History Tobacco Use Types [...] do you attend chur or anglican services? Never 09/20/2020 Do you [...] Answer Date Recorded PHQ-2 Score 2 01/01/2019 [facility] of Occupat ional Health - Occupational Stress [...] st Contact Info) Description 08/18/2023 3:00 PM OILER HELPER Office Visit [place] [address] [place] [address] Katiana Read MD [address] [place], [place] [address] documented as of this encounter Visit Diagnoses [...] documented as of this encounter Care Teams Rubber Goods Finisher Relationship Specialty Start Date End Date Len Adhikari MD PCP - General Family Practice 11/08/16 05/09/22 [place] [address] [place] [address] PCP - General Family Medicine 05/18/22 Jovany Gonzalez MD [facility] [address] [facility] [address] [place] [address] Orthopedics 02/15/17 Staci Woodward MEDICAL RADIATION THERAPIST [place] [address] [place] [address] Nurse Practitioner Nurse Practitioner Psych/Mental Health 05/10/17 [place] [address] [facility] [place] [address] Assigned PCP 11/14/16 01/22/[address] [facility] [address] [place] [address] Battery Container Inspector Dietitian, Registered 07/25/19 Katiana Read MD [address] [facility] 200 [place] [address] Assigned Endocrinology Provider 05/02/20 08/01/21 Alexander López MD [address] [place], [place] [address] Assigned Sleep Provider 05/02/20 11/15/20 Jese Doyle MD 909 [facility] [address] [place], [place] [address] Assigned Pulmonology Provider 05/02/20 04/11/21 Roshni Nascimento, RN Personal Advocate & Liaison (PAL) Family Medicine 08/18/20 Johana Groves, [facility] [address] [place] [id number] Pharmacist Pharmacist 08/28/20 11/26/20 Kiet Swain MD [address] [facility] [address] [place], [place] [address] Referring Physician Psychiatry 09/19/20 Winsome Pike APRN EARLY INTERVENTION SCHOOL PSYCHOLOGIST [address] [place] [address] 573184 Nurse Practitioner Psychiatry 09/19/20 Tori Hines, [facility] [address] [place], [place] [id number] Fence Making Machine Operator Fence Making Machine Operator - Clinical 09/19/20 Miranda Queen [facility] [address] [place] [address] Pharmacist Pharmacist 11/12/20 Winsome Pike APRN EARLY INTERVENTION SCHOOL PSYCHOLOGIST [address] [place] [address] 284234 Assigned Behavioral Health Provider 01/04/21 07/02/22 Marisel Armando MD [address] [place] [address] 036155 Gastroenterology 02/05/21 Marisel Armando MD [address] [place] [address] 668445 Assigned Gastroenterology Provider 03/08/21 12/24/22 Inderjit Ugalde MD [address] [facility] 300 [place] [address] Assigned Surgical Provider 02/15/21 08/20/22 Wesley Barrett MD [address] [place] [address] Assigned Neuroscience Provider 05/10/21 Charles Jaramillo PA-C [address] [facility] [address] [place] [address] Assigned Musculoskeletal Provider 04/26/21 10/15/22 Miranda Queen [facility] [address] [place] [address] Assigned MTM Pharmacist 12/05/21 03/26/22 [place] [address] [place] [address] Assigned PCP 01/23/22 05/14/22 Miranda Queen [facility] [address] [place] [address] Assigned MTM Pharmacist 04/07/22 05/14/22 [place] [address] [place] [address] Assigned PCP 05/15/22 Katiana Read MD [address] [place] [address] 200 [place], [place] 78[address] Assigned Endocrinology Provider 06/19/22 [place] [address] [place] [address] Assigned Behavioral Health Provider 07/03/22 12/31/22 Deena Garza, INFORMATION ASSURANCE SPECIALIST EARLY INTERVENTION SCHOOL PSYCHOLOGIST [address] [place] [address] Assigned Pain Medication Provider 07/19/22 10/29/22 Mary Del Cid, RAFAEL [address] [place] [address] Nurse Practitioner Nurse Practitioner 10/18/22 Elham Stack, [facility] [address] [facility] [place] [address] Pharmacist Pharmacist 10/19/22 Emerita Potter, [facility] Clinic Appliance Fixer Fence Making Machine Operator - Clinical 10/29/22 11/02/22 [place] [address] [place] [address] Assigned Pain Medication Provider 10/30/22 12/03/22 Michelle Guzman DPM, Podiatry/Foot and Ankle Surgery [address] [place] [address] Assigned Musculoskeletal Provider 10/16/22 04/08/23 [place] [address] [place] [address] Assigned Pain Medication Provider 12/04/22 04/01/23 [place] [address] [place] [address] Nurse Practitioner Nurse Practitioner 01/17/23 01/17/23 Aubrey Jones MD [address] [place] [address] Cardiovascular Disease 03/28/23 Blanquita Morales Battery Container Inspector Diabetes Education 04/25/23 Aubrey Jones MD [address] [place] [address] Assigned Heart and Vascular Provider 05/07/23 documented as of this encounter
--- OUTSIDE RECORDS SUMMARY | 2023-08-03 10:14 | XMS_ITS | Encounter Summary ---
Author Name Unknown Organization [facility] Address [address] [place] [address]. [place] [address] Care Team Providers Care Hot Car Operator Name Role Phone Len Adhikari MD Primary Care Provider Jovany Gonzalez MD Unavailable CrissyStaci jeong HAND TUBE WINDER Unavailable [phone] Len Adhikari MD Unavailable Reanna Smith RD Unavailable Jamshid Granados MD Unavailable [phone] Katiana Read MD Unavailable [phone] Jovita Daly MD Unavailable [phone] Alexander López MD Unamarcelina lable Jese Doyle MD Unavailable [phone] Roshni Nascimento RN Unavailable Unavailable Johana Groves [facility] Unavailable Kiet Swain MD Unavailable [phone] Winsome Pike APRN LACQUER SPRAY BOOTH OPERATOR Unavailable [phone] Tori Hines [facility] Unavailable Miranda Queen [facility] Unavailable Unavailable Winsome Pike APRN LACQUER SPRAY BOOTH OPERATOR Unavailable Marisel Armando MD Unavailable Marisel Armando MD Unavailable Inderjit Ugalde MD Unavailable [phone] Wesley Barrett MD Unavailable [phone] EllaFordCharlesfaustino Bautista PA-C Unavailable [phone] Miranda Queen [facility] Unavailable Unavailable Leeann Rinaldi MD Unavailable Miranda Queen [facility] Unavailable Unavailable Dyan Fuentes MD Primary Care Provider [phone] Dyan Fuentes MD Unavailable [phone] Katiana Read MD Unavailable [phone] Meme Singleton PhD Unavailable [phone] Deena Garza APRN LACQUER SPRAY BOOTH OPERATOR Unavailable [phone] Mary Del Cid NP Unavailable + [phone] Elham Stack [facility] Unavailable [phone] Emerita Potter [facility] Unavailable [phone] Mary Del Cid NP Unavailable [phone] Michelle Guzman DPM, Podiatry /Foot and Ankle Surgery Unavailable Dyan Fuentes MD Unavailable [phone] Mary Del Cid NP Unavailable + [phone] Aubrey Jones MD Unavailable [phone] Blanquita Morales Unavailable Unavailable Aubrey Jones MD Unavailable [phone] Encounter Details Date Type Department Care Team (Late st Contact Info) Description 08/19/2020 [facility] Health & Addiction [address] [address] Justina Cunningham [address] [place] [address] Social History Tobacco Use Types Packs/Day Years Used Date Smoking Tobacco: Every Day Cigarettes 0.5 40 Smokeless Tobacco: Never Comments:0-4 cigarettes a da y Alcohol Use Standard Drinks/Week Comments Not Currently 0 (1 standard drink = 0.6 oz pure alcohol) pt spouse states no, was seen in ED 04/09/19 for intoxication PHQ-2 Answer Date Recorded PHQ-2 Score 2 01/01/2019 Sex and Gender Information Value Date Recorded Sex Assigned at Female 01/24/2020 11:14 AM CDT Gender Identity Female 11/15/2020 9:02 PM CDT Sexual Orientation Straight 11/06/2020 8: 58 AM CDT COVID-19 Exposure Response Date Recorded In the last month, have you been in contact with someone who was confirmed or suspected to have Coronavirus / COVID-19? No / Unsure 08/19/2020 11:04 AM PIVOT END POLISHER documented as of this encounter Miscellaneous Notes * Telephone Encounter - Radhika Guo - 08/19/2020 3:49 PM CST Reason for call: Other Patient called regarding (reason for call): appointment Additional comments: Patient is currently hospitalized and needed to reschedule the appointment for08/20. Appointment rescheduled for 09/01. Patient rescheduled in an Acute slot due do current hospitalization. Phone number to reach patient: Home number on file [phone] (home) Best Time: N/A Can we leave a detailed message on this number? YES Travel screening: Not Applicable T END POLISHER documented in this encounter Plan of Treatment Upcoming Encounters Date Type Department Care Team (Late st Contact Info) Description 08/18/2023 3:00 PM PIVOT END POLISHER Office Visit [facility] [address] [place] [address] Katiana Read MD [address] [place] [address] documented as of this encounter Visit Diagnoses Not on filedocumented in this encounter Additional Health Concerns Infection Onset Date Last Indicated Resolved Time Rule Out COVID-19 08/19/2020 08/19/2020 08/19/2020 4:40 PM PIVOT END POLISHER Rule Out C-difficile 02/27/2021 02/27/2021 021 6:10 [...] documented as of this encounter Care Teams Hot Car Operator Relationship Specialty Start Date End Date Len Adhikari MD PCP - General Family Practice 11/08/16 05/09/22 [place] [address] [place] [address] PCP - General Family Medicine 05/18/22 Jovany Gonzalez MD [facility] [address] [place] [address] Orthopedics 02/15/17 Staci Woodward NP [place] [address] [place] [address] Nurse Practitioner Nurse Practitioner Psych/Mental Health 05/10/17 [place] [address] [place] [address] Assigned PCP 11/14/16 01/22/[address] [facility] [address] [place] [address] Access Rn Dietitian, Registered 07/25/19 [place] [address] [facility] [address] [place] [address] Assigned Musculoskeletal Provider 05/02/20 09/13/20 Katiana Read MD [address] [facility] 200 [place], [place] [address] Assigned Endocrinology Provider 05/02/20 08/01/21 Jovita Daly MD [address] [place] [address] Assigned Surgical Provider 05/02/20 10/04/20 Alexander López MD [address] [facility] 106 [place], [place] [address] Assigned Sleep Provider 05/02/20 11/15/20 Jese Doyle MD 909 [facility] [place], [place] [address] Assigned Pulmonology Provider 05/02/20 04/11/21 Roshni Nascimento, RN Personal Advocate & Liaison (PAL) Family Medicine 08/18/20 Johana Groves [facility] [address] [facility] [address] [place], [place] [phone] Pharmacist Pharmacist 08/28/20 11/26/20 Kiet Swain MD [address] [place] [address] 387574 Referring Physician Psychiatry 09/19/20 Winsome Pike APRN LACQUER SPRAY BOOTH OPERATOR [address] [place] [address] 666624 Nurse Practitioner Psychiatry 09/19/20 Tori Hines [facility] [address] [place] [address] 097744 Lieutenant Colonel Lieutenant Colonel - Clinical 09/19/20 [facility] [address] [place] [address] Pharmacist Pharmacist 11/12/20 Winsome Pike APRN LACQUER SPRAY BOOTH OPERATOR [address] [place] [address] Assigned Behavioral Health Provider 01/04/21 07/02/22 Marisel Armando MD [address] [place] [address] Gastroenterology 02/05/21 Marisel Armando MD [address] [place] [address] Assigned Gastroenterology Provider 03/08/21 12/24/22 Inderjit Ugalde MD [address] [place] [address] Assigned Surgical Provider 02/15/21 08/20/22 Wesley Barrett MD 420 [facility] 96 [place] [address] Assigned Neuroscience Provider 05/10/21 Charles Jaramillo PA-C 6545 [facility] 450 [place] [address] Assigned Musculoskeletal Provider 04/26/21 10/15/22 Miranda Queen [facility] [address] [place] [address] Assigned MTM Pharmacist 12/05/21 03/26/22 [place] [address] [place] [address] Assigned PCP 01/23/22 05/14/22 Miranda Queen [facility] [address] [place] [address] Assigned MTM Pharmacist 04/07/22 05/14/22 [place] [address] [place] [address] Assigned PCP 05/15/22 Katiana Read MD [address] [facility] 200 [place] [address] Assigned Endocrinology Provider 06/19/22 Meme Singleton[place] PhD [address] [place] [address] Assigned Behavioral Health Provider 07/03/22 12/31/22 Deena Garza, TRANSPORTATION ASSOCIATE LACQUER SPRAY BOOTH OPERATOR [address] [place] [place] [address] Assigned Pain Medication Provider 07/19/22 10/29/22 [place] [address] [address] [place] [address] Nurse Practitioner Nurse Practitioner 10/18/22 Elham Stack, [facility] [address] [place], [place] [address] Pharmacist Pharmacist 10/19/22 Emerita Potter, [facility] Clinic Leather Shaver Lieutenant Colonel - Clinical 10/29/22 11/02/22 Mary Del Cid, RAFAEL [address] [place] [address] Assigned Pain Medication Provider 10/30/22 12/03/22 Michelle Guzman DPAlisha, Podiatry/Foot and Ankle Surgery [address] [place] [address] Assigned Musculoskeletal Provider 10/16/22 04/08/23 [place] [address] [place] [address] Assigned Pain Medication Provider 12/04/22 04/01/23 [place] [address] [address] [address] Nurse Practitioner Nurse Practitioner 01/17/23 01/17/23 Aubrey Jones MD [address] [place] [address] Cardiovascular Disease 03/28/23 Blanquita Morales Access Rn Diabetes Education 04/25/23 Aubrey Jones MD [address] [place] [address] Assigned Heart and Vascular Provider 05/07/23 documented as of this encounter
--- OUTSIDE RECORDS SUMMARY | 2023-08-03 10:14 | XMS_ITS | Encounter Summary ---
Author Name Unknown Organization [facility] Address [address] [place] [address]. [place] [address] Care Team Providers Care Direct Mail Manager Name Role Phone Len Adhikari MD Primary Care Provider Jovany Gonzalez MD Unavailable CrissyStaci jeong SHELL MAKER LOCKSTITCH Unavailable [phone] Len Adhikari MD Unavailable Reanna Smith [address] Unavailable [phone] Kaitana Read MD Unavailable [phone] Alexander López MD Unavai lable Jese Doyle MD Unavailable [phone] Roshni Nascimento RN Unavailable Unavailable Johana Groves [facility] Unavailable Kiet Swain MD Unavailable [phone] Winsome Pike APRN RN LABOR AND DELIVERY Unavailable +[phone] Tori Hines [facility] Unavailable Miranda Queen [facility] Unavailable Unavailable Winsome Pike APRN RN LABOR AND DELIVERY Unavailable [phone] Marisel Armando MD Unavailable Marisel Armando MD Unavailable Inderjit Ugalde MD Unavailable [phone] Wesley Barrett MD Unavailable [phone] Charles Jaramillo PA-C Unavailable [phone] Miranda Queen [facility] Unavailable Unavailable Leeann Rinaldi MD Unavailable Miranda Queen [facility] Unavailable Unavailable Dyan Fuentes MD Primary Care Provider [phone] Dyan Fuentes MD Unavailable [phone] Katiana Read MD Unavailable [phone] Meme Singleton PhD Unavailable +[phone] Deena Garza INDUSTRIAL HEALTH AND SAFETY PROFESSOR RN LABOR AND DELIVERY Unavailable [phone] Mary Del Cid NP Unavailable + [phone] Elham Stack [facility] Unavailable Emerita Potter [facility] Unavailable [phone] Mary Del Cid NP Unavailable [phone] Michelle Guzman DPM, Podiatry /Foot and Ankle Surgery Unavailable Dyan Fuentes MD Unavailable [phone] Mary Del Cid NP Unavailable [phone] Aubrey Jones MD Unavailable [phone] Blanquita Morales Unavailable Unavailable Aubrey Jones MD Unavailable [phone] Encounter Details Date Type Department Care Team (Late st Contact Info) Description 11/04/2020 [facility] [address] [place] [address] [place] [address] [place] [address] Social History Tobacco Use Types [...] How often do you attend chur or restoration services? Never 09/20/2020 Do you belong to any clubs o r organizations such as yazidi groups, unions, fraternal or athletic groups, or [...] Answer Date Recorded PHQ-2 Score 6 11/06/2020 [facility] of Occupat ional Health - Occupational Stress [...] Contact Info) Description 08/18/2023 3:00 PM PROFESSIONAL PROGRAMMER ANALYST Office Visit [facility] [address] [place] [address] Katiana Read MD [address] [place], [place] 88[address] documented as of this encounter Visit Diagnoses [...] documented as of this encounter Care Teams Direct Mail Manager Relationship Specialty Start Date End Date Len Adhikari MD PCP - General Family Practice 11/08/16 05/09/22 [place] [address] [place] [address] PCP - General Family Medicine 05/18/22 Jovany Gonzalez MD [facility] 6600 [facility] 605 [place], [place] [address] Orthopedics 02/15/17 Staci Woodward NP [place] [address] [address] [place], [place] [address] Nurse Practitioner Nurse Practitioner Psych/Mental Health 05/10/17 [place] [address] [place] [address] Assigned PCP 11/14/16 01/22/22 Reanna Smith, [facility] [address] [place] [address] Tetryl Screen Operator Dietitian, Registered 07/25/19 Katiana Read MD [address] [place] [address] Assigned Endocrinology Provider 05/02/20 08/01/21 Alexander López MD [address] [place], [place] [address] Assigned Sleep Provider 05/02/20 11/15/20 Jese Doyle MD [address] [facility] [place], [place] [address] Assigned Pulmonology Provider 05/02/20 04/11/21 Roshni Nascimento, RN Personal Advocate & Liaison (PAL) Family Medicine 08/18/20 Johana Groves, [facility] [address] [place] [id number] Pharmacist Pharmacist 08/28/20 11/26/20 Kiet Swain MD [address] [facility] [address] [place], [place] [address] Referring Physician Psychiatry 3/12/21 Winsome Pike APRN RN LABOR AND DELIVERY [address] [address] Nurse Practitioner Psychiatry 09/19/20 Tori Hines, [facility] [address] [place], [place] [phone] Mud Analysis Supervisor Mud Analysis Supervisor - Clinical 09/19/20 Miranda Queen, [facility] [address] [place] [address] Pharmacist Pharmacist 11/12/20 Winsome Pike APRN RN LABOR AND DELIVERY [facility][note 2][address] [address] Assigned Behavioral Health Provider 01/04/21 07/02/22 Marisel Armando MD [address] [place] [address] 831025 Gastroenterology 02/05/21 Marisel Armando MD [address] [place] [address] 627335 Assigned Gastroenterology Provider 03/08/21 12/24/22 Inderjit Ugalde MD [address] [facility] 300 [place], [place] [address] Assigned Surgical Provider 02/15/21 08/20/22 Wesley Barrett MD [address] [place] [address] 019815 Assigned Neuroscience Provider 05/10/21 Charles Jaramillo PA-C [address] [address] Assigned Musculoskeletal Provider 04/26/21 10/15/22 Miranda Queen [facility] [address] [place] [address] Assigned MTM Pharmacist 12/05/21 03/26/22 [place] [address] [place] [address] Assigned PCP 01/23/22 05/14/22 Miranda Queen [facility] [address] [place] [address] Assigned MTM Pharmacist 04/07/22 05/14/22 [place] [address] [place] [address] Assigned PCP 05/15/22 Katiana Read MD [address] [place] [address] 200 [place] [address] Assigned Endocrinology Provider 06/19/22 [place]e [place] PhD [address] [place] [address] Assigned Behavioral Health Provider 07/03/22 12/31/22 Deena Garza, INDUSTRIAL HEALTH AND SAFETY PROFESSOR RN LABOR AND DELIVERY [address] [place] [address] Assigned Pain Medication Provider 07/19/22 10/29/22 Mary Del Cid, SHELL MAKER LOCKSTITCH [address] [place] [address] Nurse Practitioner Nurse Practitioner 10/18/22 Elham Stack, [facility] [address] [place] [address] Pharmacist Pharmacist 10/19/22 Emerita Potter, [facility] Clinic Lighting Adviser Mud Analysis Supervisor - Clinical 10/29/22 11/02/22 [place] [address] [place] [place] [place] [address] Assigned Pain Medication Provider 10/30/22 12/03/22 Michelle Guzman, DPM, Podiatry/Foot and Ankle Surgery [address] [place] [place] [address] Assigned Musculoskeletal Provider 10/16/22 04/08/23 [place] [address] [place] [address] Assigned Pain Medication Provider 12/04/22 04/01/23 [place] [address] [place] [address] Nurse Practitioner Nurse Practitioner 01/17/23 01/17/23 Aubrey Jones MD [address] [place] [address] Cardiovascular Disease 03/28/23 Blanquita Morales Tetryl Screen Operator Diabetes Education 04/25/23 Aubrey Jones MD [address] [place] [address] Assigned Heart and Vascular Provider 05/07/23 documented as of this encounter
--- OUTSIDE RECORDS SUMMARY | 2023-08-03 10:14 | XMS_ITS | Encounter Summary ---
Author Name Unknown Organization [facility] Address [address] [place] [address]. [place] [address] Care Team Providers Care Gun Stock Checker Name Role Phone Len Adhikari MD Primary Care Provider Jovany Gonzalez MD Unavailable CrissyStaci jeong RESIDENTIAL DIRECTOR Unavailable [phone] Len Adhikari MD Unavailable [phone] Unavailable Katiana Read MD Unavailable [phone] Alexander López MD Unavai lable Jese Doyle MD Unavailable [phone] Roshni Nascimento RN Unavailable Unavailable Johana Groves [facility] Unavailable [phone] Kiet Swain MD Unavailable Winsome Pike APRN MANUFACTURING COST ESTIMATOR Unavailable +[phone] Tori Hines [facility] Unavailable Miranda Queen [facility] Unavailable Unavailable Winsome Pike APRN MANUFACTURING COST ESTIMATOR Unavailable +[phone] Marisel Armando MD Unavailable Marisel Armando MD Unavailable Inderjit Ugalde MD Unavailable Wesley Barrett MD Unavailable [phone] Charles Jaramillo PA-C Unavailable + [phone] Miranda Queen [facility] Unavailable Unavailable Leeann Rinaldi MD Unavailable Miranda Queen [facility] Unavailable Unavailable Dyan Fuentes MD Primary Care Provider [phone] Dyan Fuentes MD Unavailable [phone] Katiana Read MD Unavailable [phone] Meme Singleton PhD Unavailable [phone] Deena Garza ASSISTANT STORE MANAGER SALES MANUFACTURING COST ESTIMATOR Unavailable +[phone] Mary Del Cid NP Unavailable + [phone] Elham Stack [facility] Unavailable [phone] Emerita Potter [facility] Unavailable [phone] Mary Del Cid NP Unavailable [phone] Michelle Guzman DPM, Podiatry /Foot and Ankle Surgery Unavailable Dyan Fuentes MD Unavailable [phone] Mary Del Cid NP Unavailable [phone] Aubrey Jones MD Unavailable [phone] Blanquita Morales Unavailable Unavailable Aubrey Jones MD Unavailable [phone] Reason for Visit * Reason Onset Date Comments CD Outpatient 11/03/2020 Encounter Details Date Type Department Care Team ([facility] st Contact Info) Description 11/03/2020 Telephone [facility] Int[facility] [address] [place] [address] Generic, Behavioral Intake, CD Outpatient Social History Tobacco Use Types Packs/Day Years [...] you attend chur ch or sabianist services? Never 09/20/2020 Do you belong to any clubs o r organizations such as alevism groups, unions, fraternal or athletic groups, or [...] Answer Date Recorded PHQ-2 Score 6 11/06/2020 [facility] of Occupat ional Health - [...] slept in a prison (including now)? No 09/20/2020 Education Answer Date [...] encounter Miscellaneous Notes * Telephone Encounter - Lm Schwarzmie - 11/12/2020 3:52 PM CDT ----- Message from STAS Baldwin sent at 11/12/2020 3:32 PM CDT ----- Regarding: new start in 55+ B1 on 11/19 Scheduling Request Patient Name: Kaila Hernandez Location of programmin+ Start Date: November Group: BHB1 on Tuesday, Tuesday, and Tuesday at 1:00pm to 4:00pm Attending Provider (): unique Number of visits to be scheduled: 36 Duration of Appointment in minutes: 180 min Visit Type: Zoom - [id number] Additional notes: * Telephone Encounter - Radhika Guo - 11/03/2020 12:00 PM CDT Pt is referred to 55+ by [facility] staff @ [phone] ADULT ANGELICA Negron sent. documented in this encounter Plan of Treatment Upcoming Encounters Date Type Department Care Team (Late st Contact Info) Description 08/18/2023 3:00 PM YARN DYER Office Visit [facility] [address] [place] [address] Katiana Read MD [address] [place] [address] documented as of this encounter [...] documented as of this encounter Care Teams Gun Stock Checker Relationship Specialty Start Date End Date Len Adhikari MD PCP - General Family Practice 11/08/16 05/09/22 [place] [address] [place] [address] PCP - General Family Medicine 05/18/22 Jovany Gonzalez MD [facility] [address] [facility] 605 [place] [address] Orthopedics 02/15/17 Staci Woodward, [place] [address] [place] [address] Nurse Practitioner Nurse Practitioner Psych/Mental Health 05/10/17 [place] [address] [facility] [place] [address] Assigned PCP 11/14/16 01/22/[address] [place] [address] [place] [address] Studio Sales Associate Dietitian, Registered 07/25/19 Katiana Read MD [address] [place] [address] 200 [place] [address] Assigned Endocrinology Provider 05/02/20 08/01/21 Alexander López MD [address] [facility] [address] [place], [place] [address] Assigned Sleep Provider 05/02/20 11/15/20 Jese Doyle MD [address]09 [place] [address] Assigned Pulmonology Provider 05/02/20 04/11/21 Roshni Nascimento, RN Personal Advocate & Liaison (PAL) Family Medicine 08/18/20 Johana Groves, [facility] [address] [facility] [place] [address] Pharmacist Pharmacist 08/28/20 11/26/20 Kiet Swain MD [address] [place] [address] [id number] Referring Physician Psychiatry 09/19/20 Winsome Pike APRN MANUFACTURING COST ESTIMATOR [address] [place] [address] Nurse Practitioner Psychiatry 09/19/20 Tori Hines, [facility]0 [place], [place] [id number] Cat Wagon Operator Cat Wagon Operator - Clinical 09/19/20 Miranda Queen, [facility] [address] [place] [address] Pharmacist Pharmacist 11/12/20 Winsome Pike APRN MANUFACTURING COST ESTIMATOR [address] [place] [address] [phone] Assigned Behavioral Health Provider 01/04/21 07/02/22 Marisel Armando MD [address] [place] [address] Gastroenterology 02/05/21 Marisel Armando MD [address] [place] [address] Assigned Gastroenterology Provider 03/08/21 12/24/22 Inderjit Ugalde MD [address] [facility] 300 [place] [address] Assigned Surgical Provider 02/15/21 08/20/22 Wesley Barrett MD [address] [place] [address] 96 [place] [address] Assigned Neuroscience Provider 05/10/21 Charles Jaramillo PA-C [address] [address] Assigned Musculoskeletal Provider 04/26/21 10/15/22 Miranda Queen [facility] [address] [place] [address] Assigned MTM Pharmacist 12/05/21 03/26/22 [place] [address] [place] [address] Assigned PCP 01/23/22 05/14/22 Miranda Queen [facility] [address] [place] [address] Assigned MTM Pharmacist 04/07/22 05/14/22 [place] [address] [place] [address] Assigned PCP 05/15/22 Katiana Read MD [address] [facility] 200 [place] [address] Assigned Endocrinology Provider 06/19/22 [place] [address] [place] [address] Assigned Behavioral Health Provider 07/03/22 12/31/22 Deena Garza, ASSISTANT STORE MANAGER SALES MANUFACTURING COST ESTIMATOR [address] [place] [address] Assigned Pain Medication Provider 07/19/22 10/29/22 Mary Del Cid, [place] [address] [place] [address] Nurse Practitioner Nurse Practitioner 10/18/22 Elham Stack, [facility] [address] [place], [place] 4038[address] Pharmacist Pharmacist 10/19/22 Emerita Potter, [facility] Composite Layup Worker Cat Wagon Operator - Clinical 10/29/22 11/02/22 Mary Del Cid, [place] [address] [place] [place] [address] Assigned Pain Medication Provider 10/30/22 12/03/22 Michelle Guzman, DPM, Podiatry/Foot and Ankle Surgery [address] [place] [address] Assigned Musculoskeletal Provider 10/16/22 04/08/23 [place] [address] [place] [address] Assigned Pain Medication Provider 12/04/22 04/01/23 [place] [address] [place] [address] Nurse Practitioner Nurse Practitioner 01/17/23 01/17/23 Aubrey Jones MD [address] [place] [address] Cardiovascular Disease 03/28/23 Blanquita Morales Studio Sales Associate Diabetes Education 04/25/23 Aubrey Jones MD [address] [place] [address] Assigned Heart and Vascular Provider 05/07/23 documented as of this encounter
--- OUTSIDE RECORDS SUMMARY | 2023-08-03 10:14 | XMS_ITS | Encounter Summary ---
Author Name Unknown Organization [facility] Address [address] [place] [address]. [place] [address] Care Team Providers Care Mortgage Protection Sales Name Role Phone Len Adhikari MD Primary Care Provider Jovany Gonzalez MD Unavailable [phone] CrissyStaci jeong FLORAL DECORATOR Unavailable [phone] Len Adhikari MD Unavailable Reanna Smith RD Unavailable Katiana Read MD Unavailable [phone] Jovita Daly MD Unavailable Alexander López MD Unamarcelina lable Jese Doyle MD Unavailable [phone] Roshni Nascimento RN Unavailable Unavailable Johana Groves [facility] Unavailable [phone] Kiet Swain MD Unavailable [phone] Winsome Pike APRN JAWBONE PULLER Unavailable [phone] Tori Hines [facility] Unavailable Miranda Queen [facility] Unavailable Unavailable Winsome Pike APRN JAWBONE PULLER Unavailable [phone] Marisel Armando MD Unavailable Marisel Armando MD Unavailable Inderjit Ugalde MD Unavailable [phone] Wesley Barrett MD Unavailable [phone] Ella Charlestaylor Bautista PA-C Unavailable [phone] Miranda Queen [facility] Unavailable Unavailable Leeann Rinaldi MD Unavailable Miranda Queen [facility] Unavailable Unavailable Dyan Fuentes MD Primary Care Provider [phone] Dyan Fuentes MD Unavailable [phone] Katiana Read MD Unavailable [phone] Meme Singleton PhD Unavailable [phone] Deena Garza APRN JAWBONE PULLER Unavailable [phone] Mary Del Cid NP Unavailable + [phone] Elham Stack [facility] Unavailable [phone] Emerita Potter [facility] Unavailable [phone] Mary Del Cid NP Unavailable [phone] Michelle Guzman DPM, Podiatry /Foot and Ankle Surgery Unavailable Dyan Fuentes MD Unavailable [phone] Mary Del Cid NP Unavailable [phone] Aubrey Jones MD Unavailable [phone] Blanquita Morales Unavailable Unavailable Aubrey Jones MD Unavailable [phone] Encounter Details Date Type Department Care Team (Late st Contact Info) Description 09/18/2020 [facility] Care Coordination [address] [place] [address] Minnie Houston Social History Tobacco Use Types Packs/Day Years [...] any clubs o r organizations such as temple groups, unions, fraternal or athletic groups, or [...] Answer Date Recorded PHQ-2 Score 2 01/01/2019 [facility] of Occupat ional Health - Occupational Stress [...] slept in a intermediate (including now)? No 09/20/2020 Sex and Gender Information Value Date Recorded Sex Assigned at Female 01/24/2020 11:14 AM CDT Gender Identity Female 11/15/2020 9:02 PM CDT Sexual Orientation Straight 11/06/2020 8: 58 AM CDT COVID-19 Exposure Response Date Recorded In the last month, have you been in contact with someone who was confirmed or suspected to have Coronavirus / COVID-19? Unable to assess 08/31/2020 12:49 AM SMOOTH PLATER documented as of this encounter Plan of Treatment Upcoming Encounters Date Type Department Care Team (Late st Contact Info) Description 08/18/2023 3:00 PM SMOOTH PLATER Office Visit [facility] [address] [place] [address] Katiana Read MD [address] [place] [address] documented as of this encounter Visit Diagnoses [...] documented as of this encounter Care Teams Mortgage Protection Sales Relationship Specialty Start Date End Date Len Adhikari MD PCP - General Family Practice 11/08/16 05/09/22 [place] [address] [place] [address] PCP - General Family Medicine 05/18/22 Jovany Gonzalez MD [facility] 6600 [facility] 605 [place], [place] 6[address] Orthopedics 02/15/17 Staci Woodward NP [facility] [address] [place] [address] Nurse Practitioner Nurse Practitioner Psych/Mental Health 05/10/17 [place] [address] [address] [place], [place] 76487[address] Assigned PCP 11/14/16 01/22/22 Reanna Smith, [facility] [address] [place] [address] Anthropology Department Chair Dietitian, Registered 07/25/19 Katiana Read MD [address] 200 [place] [address] Assigned Endocrinology Provider 05/02/20 08/01/21 Jovita Daly MD [address] [place] [address] Assigned Surgical Provider 05/02/20 10/04/20 Alexander López MD [address] [place], [place] [address]E [facility] 106 [place], [place] [address] Assigned Sleep Provider 05/02/20 11/15/20 Jese Doyle MD 9[address] [facility] [place] [address] Assigned Pulmonology Provider 05/02/20 04/11/21 Roshni Nascimento RN Personal Advocate & Liaison (PAL) Family Medicine 08/18/20 Johana Groves, [facility] [address] [place] [address] Pharmacist Pharmacist 08/28/20 11/26/20 Kiet Swain MD [address] [facility] [place], [place] [address] Referring Physician Psychiatry 09/19/20 Winsome Pike APRN JAWBONE PULLER [address] [place] [address] [phone] Nurse Practitioner Psychiatry 09/19/20 Tori Hines [facility] 2450 [place], [place] 265[address] Marketing Database Coordinator Marketing Database Coordinator - Clinical 09/19/20 Miranda Queen [facility] [address] [place] [address] Pharmacist Pharmacist 11/12/20 Winsome Pike APRN JAWBONE PULLER [address] [place] [address] 076184 Assigned Behavioral Health Provider 01/04/21 07/02/22 Marisel Armando MD [address] [place] [address] 564265 Gastroenterology 02/05/21 Marisel Armando MD [address] [place] [address] 445585 Assigned Gastroenterology Provider 03/08/21 12/24/22 Inderjit Ugalde MD [address] [facility] 300 [place], [place] 387387 Assigned Surgical Provider 02/15/21 08/20/22 Wesley Barrett MD [address] [place] [address] 431885 Assigned Neuroscience Provider 05/10/21 Charles Jaramillo PA-C [address] 182245 Assigned Musculoskeletal Provider 04/26/21 10/15/22 [facility] [address] [place] [address] Assigned MTM Pharmacist 12/05/21 03/26/22 [place] [address] [place] [address] Assigned PCP 01/23/22 05/14/22 [facility] [address] [place] [address] Assigned MTM Pharmacist 04/07/22 05/14/22 [place] [address] [place] [address] Assigned PCP 05/15/22 Katiana Read MD [address] [place] [address] 230390 Assigned Endocrinology Provider 06/19/22 [place] [address] [place] 903567 Assigned Behavioral Health Provider 07/03/22 12/31/22 Deena Garza, FOAM RUBBER FABRICATOR JAWBONE PULLER [address] [place] [address] Assigned Pain Medication Provider 07/19/22 10/29/22 Mary Del Cid, FLORAL DECORATOR [address] [place] [address] Nurse Practitioner Nurse Practitioner 10/18/22 Elham Stack, [facility] [address] [place] [address] Pharmacist Pharmacist 10/19/22 Emerita Potter, [facility] Clinic Cardiopulmonary Technician And Eeg Tech Marketing Database Coordinator - Clinical 10/29/22 11/02/22 [place] [address] [place] [address] Assigned Pain Medication Provider 10/30/22 12/03/22 Michelle Guzman DPM, Podiatry/Foot and Ankle Surgery [address] [place] [address] Assigned Musculoskeletal Provider 10/16/22 04/08/23 [place] [address] [place] [address] Assigned Pain Medication Provider 12/04/22 04/01/23 [place] [address] [place] [address] Nurse Practitioner Nurse Practitioner 01/17/23 01/17/23 Aubrey Jones MD [address] [place] [address] Cardiovascular Disease 03/28/23 Blanquita Morales Anthropology Department Chair Diabetes Education 04/25/23 Aubrey Jones MD [address] [place] [address] Assigned Heart and Vascular Provider 05/07/23 documented as of this encounter
--- OUTSIDE RECORDS SUMMARY | 2023-08-03 10:14 | XMS_ITS | Encounter Summary ---
Author Name Unknown Organization [facility] Address [address] [place] [address]. [place] [address] Care Team Providers Care Lift Team Technician Name Role Phone Len Adhikari MD Primary Care Provider Jovany Gonzalez MD Unavailable CrissyStaci jeong DRYER FEEDER Unavailable [phone] Len Adhikari MD Unavailable Reanna Smith RD Unavailable Katiana Read MD Unavailable [phone] Alexander López MD Unavai lable Jese Doyle MD Unavailable [phone] Roshni Nascimento RN Unavailable Unavailable Johana Groves [facility] Unavailable Kiet Swain MD Unavailable [phone] Winsome Pike APRN DENSITOMETRIST Unavailable +[phone] Tori Hines [facility] Unavailable Miranda Queen [facility] Unavailable Unavailable Winsome Pike APRN DENSITOMETRIST Unavailable +[phone] Marisel Armando MD Unavailable Marisel Armando MD Unavailable Inderjit Ugalde MD Unavailable [phone] Wesley Barrett MD Unavailable Charles Jaramillo PA-C Unavailable [phone] Miranda Queen [facility] Unavailable Unavailable Leeann Rinaldi MD Unavailable Miranda Queen [facility] Unavailable Unavailable Dyan Fuentes MD Primary Care Provider [phone] Dyan Fuentes MD Unavailable [phone] Katiana Read MD Unavailable [phone] Meme Singleton PhD Unavailable [phone] Deena Garza MARKETING OPERATIONS CONSULTANT DENSITOMETRIST Unavailable [phone] Mary Del Cid NP Unavailable + [phone] Elham Stack [facility] Unavailable Emerita Potter [facility] Unavailable [phone] Mary Del Cid NP Unavailable [phone] Michelle Guzman DPM, Podiatry /Foot and Ankle Surgery Unavailable Dyan Fuentes MD Unavailable [phone] Mary Del Cid NP Unavailable [phone] Aubrey Jones MD Unavailable [phone] Blanquita Morales Unavailable Unavailable Aubrey Jones MD Unavailable [phone] Encounter Details Date Type Department Care Team (Late st Contact Info) Description 11/04/2020 [facility] [address] [place] [address] [place] [address] [place] [address] Social History Tobacco Use Types [...] Answer Date Recorded PHQ-2 Score 6 11/06/2020 [facility] [place] of Occupat ional Health - Occupational [...] st Contact Info) Description 08/18/2023 3:00 PM DAIRY DEPARTMENT MANAGER Office Visit [facility] [address] [place] [address] Katiana Read MD [address] [place], [place] [address]900 documented as of this encounter Visit Diagnoses [...] documented as of this encounter Care Teams Lift Team Technician Relationship Specialty Start Date End Date Len Adhikari MD PCP - General Family Practice 11/08/16 05/09/22 [place] [address] [place] [address] PCP - General Family Medicine 05/18/22 Jovany Gonzalez MD [facility] 6600 [facility] 605 [place], [place] 212875 Orthopedics 02/15/17 Staci Woodward NP [place] [address] [place], [place] [address] Nurse Practitioner Nurse Practitioner Psych/Mental Health 05/10/17 [place] [address] [place] [address] Assigned PCP 11/14/16 01/22/22 Reanna Smith, [facility] [address] [place] [address] Broke Handler Dietitian, Registered 07/25/19 Katiana Read MD [address] [place] [address] Assigned Endocrinology Provider 05/02/20 08/01/21 Alexander López MD [address] [place], [place] 322[address] Assigned Sleep Provider 05/02/20 11/15/20 Jese Doyle MD 909 [facility] [place], [place] 8640[address] Assigned Pulmonology Provider 05/02/20 04/11/21 Roshni Nascimento, RN Personal Advocate & Liaison (PAL) Family Medicine 08/18/20 Johana Groves, [facility] [address] [place] [phone] Pharmacist Pharmacist 08/28/20 11/26/20 Kiet Swain MD [address]50 [facility] [address] [place], [place] [address] Referring Physician Psychiatry 3/12/21 Winsome Pike APRN DENSITOMETRIST [address] 940274 Nurse Practitioner Psychiatry 09/19/20 Tori Hines, [facility] [address] [place], [place] [id number] In Store Demonstrator In Store Demonstrator - Clinical 09/19/20 Miranda Queen, [facility] [address] [place] [address] Pharmacist Pharmacist 11/12/20 Winsome Pike APRN DENSITOMETRIST [facility] 420824 Assigned Behavioral Health Provider 01/04/21 07/02/22 Marisel Armando MD [address] [place] [address] 865985 Gastroenterology 02/05/21 Marisel Armando MD [address] [place] [address] 061665 Assigned Gastroenterology Provider 03/08/21 12/24/22 Inderjit Ugaled MD [address] [facility] 300 [place], [place] 33[address] Assigned Surgical Provider 02/15/21 08/20/22 Wesley Barrett MD [address] [place] [address] 659265 Assigned Neuroscience Provider 05/10/21 Charles Jaramillo PA-C [address] [address] Assigned Musculoskeletal Provider 04/26/21 10/15/22 Miranda Queen [facility] [address] [place] [address] Assigned MTM Pharmacist 12/05/21 03/26/22 [place] [address] [place] [address] Assigned PCP 01/23/22 05/14/22 Miranda Queen [facility] [address] [place] [address] Assigned MTM Pharmacist 04/07/22 05/14/22 [place] [address] [place] [address] Assigned PCP 05/15/22 Katiana Read MD [address] [place] [address] 200 [place] [address] Assigned Endocrinology Provider 06/19/22 [place] [address] [place] [address] Assigned Behavioral Health Provider 07/03/22 12/31/22 Deena Garza, MARKETING OPERATIONS CONSULTANT DENSITOMETRIST [address] [place] [address] Assigned Pain Medication Provider 07/19/22 10/29/22 Mary Del Cid, DRYER FEEDER [address] [place] [address] Nurse Practitioner Nurse Practitioner 10/18/22 Elham Stack, [facility] [address] [place] [address] Pharmacist Pharmacist 10/19/22 Emerita Potter, [facility] Clinic Drier In Store Demonstrator - Clinical 10/29/22 11/02/22 [place] [address] [place] [address] Assigned Pain Medication Provider 10/30/22 12/03/22 Michelle Guzman, DPM, Podiatry/Foot and Ankle Surgery [address] [place] [place] [address] Assigned Musculoskeletal Provider 10/16/22 04/08/23 [place] [address] [place] [address] Assigned Pain Medication Provider 12/04/22 04/01/23 [place] [address] [place] [address] Nurse Practitioner Nurse Practitioner 01/17/23 01/17/23 Aubrey Jones MD [address] [place] [address] Cardiovascular Disease 03/28/23 Blanquita Moralse Broke Handler Diabetes Education 04/25/23 Aubrey Jones MD [address] [place] [address] Assigned Heart and Vascular Provider 05/07/23 documented as of this encounter
--- OUTSIDE RECORDS SUMMARY | 2023-08-03 10:14 | XMS_ITS | Encounter Summary ---
Author Name Unknown Organization [place] Address [address] [place] [address]. [place] [address] Care Team Providers Care Animal Husbandry Professor Name Role Phone Len Adhikari MD Primary Care Provider Jovany Gonzalez MD Unavailable [phone] CrissyStaci jeong METALIZING SUPERVISOR Unavailable [phone] Len Adhikari MD Unavailable Reanna Smith RD Unavailable Jamshid Granados MD Unavailable Katiana Read MD Unavailable [phone] Jovita Daly MD Unavailable +[phone] Alexander López MD Unamarcelina lable Jese Doyle MD Unavailable +[phone] Roshni Nascimento RN Unavailable Unavailable Johana Groves [facility] Unavailable Kiet Swain MD Unavailable [phone] Winsome Pike APRN GIS MANAGER Unavailable +[phone] Tori Hines [facility] Unavailable Miranda Queen [facility] Unavailable Unavailable Winsome Pike APRN GIS MANAGER Unavailable Marisel Armando MD Unavailable Marisel Armando MD Unavailable Inderjit Ugalde MD Unavailable [phone] Wesley Barrett MD Unavailable +[phone] EllaCharles jimenez Michele GEIGER Unavailable +[phone] Miranda Queen [facility] Unavailable Unavailable Leeann Rinaldi MD Unavailable Miranda Queen [facility] Unavailable Unavailable Dyan Fuentes MD Primary Care Provider [phone] Dyan Fuentes MD Unavailable +[phone] Katiana Read MD Unavailable [phone] Mmee Singleton PhD Unavailable [phone] Deena Garza APRN GIS MANAGER Unavailable +[phone] Mary Del Cid NP Unavailable + [phone] Elham Stack [facility] Unavailable +[phone] Emerita Potter [facility] Unavailable [phone] Mary Del Cid NP Unavailable + [phone] Michelle Guzman DPM, Podiatry /Foot and Ankle Surgery Unavailable Dyan Fuentes MD Unavailable [phone] Mary Del Cid NP Unavailable + [phone] uAbrey Jones MD Unavailable +[phone] Blanquita Morales Unavailable Unavailable Aubrey Jonse MD Unavailable +[phone] Encounter Details Date Type Department Care Team (Late st Contact Info) Description 09/05/2020 [facility] [address] [place] [id number] [place] [address] [place] [address] Social History Tobacco Use Types Packs/Day Years [...] COVID-19? Unable to assess 08/31/2020 12:49 AM COMPANY SECRETARY documented as of this encounter Plan of Treatment Upcoming Encounters Date Type Department Care Team (Late st Contact Info) Description 08/18/2023 3:00 PM COMPANY SECRETARY Office Visit [facility] [address] [facility] [address] [place] [address] Katiana Read MD [address] [place] [address] [address] [place] [address] documented as of this encounter Visit Diagnoses [...] documented as of this encounter Care Teams Animal Husbandry Professor Relationship Specialty Start Date End Date Len Adhikari MD PCP - General Family Practice 11/08/16 05/09/22 [place] [address] [place] [address] PCP - General Family Medicine 05/18/22 Jovany Gonzalez MD [facility] [address] [facility] 605 [place], [place] [address] Orthopedics 02/15/17 Staci Woodward NP [place] [address] [place], [place] [id number] Nurse Practitioner Nurse Practitioner Psych/Mental Health 05/10/17 [place] [address] [place] [address] Assigned PCP 11/14/16 01/22/[address] [facility] [address] [place], [place] 8[address] Home Energy Inspector Dietitian, Registered 07/25/19 [place] [address] [facility] 300 [place], [place] 4[address]27 Assigned Musculoskeletal Provider 05/02/20 09/13/20 Katiana Read MD [address] [facility] 200 [place] [address] Assigned Endocrinology Provider 05/02/20 08/01/21 Jovita Daly MD [address] [place] [address] Assigned Surgical Provider 05/02/20 10/04/20 Alexander López MD [address] [facility] 106 [place], [place] [address] Assigned Sleep Provider 05/02/20 11/15/20 Jese Doyle MD 909 [place], [place] 158775 Assigned Pulmonology Provider 05/02/20 04/11/21 Roshni Nascimento, RN Personal Advocate & Liaison (PAL) Family Medicine 08/18/20 Johana Groves, [facility] [address] [facility] [address] [place], [place] [id number] Pharmacist Pharmacist 08/28/20 11/26/20 Kiet Swain MD [address] [facility] [address] [place], [place] [id number] Referring Physician Psychiatry 09/19/20 Winsome Pike APRN GIS MANAGER [address] [place] [address] Nurse Practitioner Psychiatry 09/19/20 Tori Hines, [facility] 2450 [place], [place] [address] Fisher Seal Fisher Seal - Clinical 09/19/20 Miranda Queen [facility] [address] [place] [address] Pharmacist Pharmacist 11/12/20 Winsome Pike APRN GIS MANAGER [address] [place] [address] 627624 Assigned Behavioral Health Provider 01/04/21 07/02/22 Marisel Armando MD [address] [place] [address] 771875 Gastroenterology 02/05/21 Marisel Armando MD [address] [place] [address] 024615 Assigned Gastroenterology Provider 03/08/21 12/24/22 Inderjit Ugalde MD [address] [address] Assigned Surgical Provider 02/15/21 08/20/22 Wesley Barrett MD [address] [place] [address] 96 [place] [address] Assigned Neuroscience Provider 05/10/21 Charles Jaramillo PA-C [address] [facility] [address] [address] Assigned Musculoskeletal Provider 04/26/21 10/15/22 Miranda Queen [facility] [address] [place] [address] Assigned MTM Pharmacist 12/05/21 03/26/22 [place] [address] [place] [address] Assigned PCP 01/23/22 05/14/22 Miranda Queen [facility] [address] [place] [address] Assigned MTM Pharmacist 04/07/22 05/14/22 [place] [address] [place] [address] Assigned PCP 05/15/22 Katiana Read MD [address] [address] 650870 Assigned Endocrinology Provider 06/19/22 Meme Singleton[place] PhD [address] [place] 947087 Assigned Behavioral Health Provider 07/03/22 12/31/22 Deena Garza APRN GIS MANAGER [address] [place] [address] Assigned Pain Medication Provider 07/19/22 10/29/22 Mary Del Cid, RAFAEL [address] [place] [address] Nurse Practitioner Nurse Practitioner 10/18/22 Elham Stack, [facility] 30[address] [place] [address] Pharmacist Pharmacist 10/19/22 Emerita Potter, [facility] Clinic Painter Aircraft Fisher Seal - Clinical 10/29/22 11/02/22 [place] [address] [place] [address] Assigned Pain Medication Provider 10/30/22 12/03/22 Michelle Guzman DPM, Podiatry/Foot and Ankle Surgery [address] [place] [address] Assigned Musculoskeletal Provider 10/16/22 04/08/23 [place] [address] [place] [address] Assigned Pain Medication Provider 12/04/22 04/01/23 [place] [address] [place] [address] Nurse Practitioner Nurse Practitioner 01/17/23 01/17/23 Aubrey Jones MD [address] [place] [address] Cardiovascular Disease 03/28/23 Blanquita Morales Home Energy Inspector Diabetes Education 04/25/23 Aubrey Jones MD [address] [place] [address] Assigned Heart and Vascular Provider 05/07/23 documented as of this encounter
--- OUTSIDE RECORDS SUMMARY | 2023-08-03 10:14 | XMS_ITS | Encounter Summary ---
Author Name Unknown Organization [place] Address [address] [place] [address]. [place] [address] Care Team Providers Care Project Management It Specialist Name Role Phone Len Adhikari MD Primary Care Provider Jovany Gonzalez MD Unavailable CrissyStaci jeong URBAN FORESTER Unavailable [phone] Len Adhikari MD Unavailable Reanna Smith RD Unavailable Katiana Read MD Unavailable [phone] Jovita Daly MD Unavailable Alexander López MD Unamarcelina lable Jese Doyle MD Unavailable [phone] Roshni Nascimento RN Unavailable Unavailable Johana Groves [facility] Unavailable Kiet Swain MD Unavailable [phone] Winsome Pike APRN BEAMER HAND Unavailable [phone] Tori Hines [facility] Unavailable Miranda Queen [facility] Unavailable Unavailable Winsome Pike APRN BEAMER HAND Unavailable [phone] Marisel Armando MD Unavailable Marisel Armando MD Unavailable Inderjit Ugalde MD Unavailable [phone] Wesley Barrett MD Unavailable +[phone] EllaCharles epperson Michele GEIGER Unavailable + [phone] Miranda Queen [facility] Unavailable Unavailable Leeann Rinaldi MD Unavailable Miranda Queen [facility] Unavailable Unavailable Dyan Fuentes MD Primary Care Provider Dyan Fuentes MD Unavailable [phone] Katiana Read MD Unavailable [phone] Meme Singleton PhD Unavailable [phone] Deena Garza APRN BEAMER HAND Unavailable +[phone] Mary Del Cid NP Unavailable [phone] Elham Stack [facility] Unavailable Emerita Potter [facility] Unavailable Mary Del Cid NP Unavailable [phone] Michelle Guzman DPM, Podiatry /Foot and Ankle Surgery Unavailable Dyan Fuentes MD Unavailable [phone] Mary Del Cid NP Unavailable [phone] Aubrey Jones MD Unavailable [phone] Blanquita Morales Unavailable Unavailable Aubrey Jones MD Unavailable [phone] Reason for Visit * Reason Comments Medication Refill Encounter Details Date Type Department Care Team (Late st Contact Info) Description 09/14/2020 Refill [facility] [address] [facility] [address] [place] [address] Katiana Read MD [address] [place] [address] 200 [place] [address] Medication Refill Social History Tobacco Use Types [...] COVID-19? Unable to assess 08/31/2020 12:49 AM MENTAL MEASUREMENTS TEACHER documented as of this encounter Miscellaneous Notes * Telephone Encounter - Katiana Read MD - 09/17/2020 12:40 PM MENTAL MEASUREMENTS TEACHER Rx sent. TSH Date Value Ref Range Status 08/19/2020 0.70 0.40 - 4.00 mU/L Final AL MEASUREMENTS TEACHER * Telephone Encounter - Marisel Thompson RN - 09/17/2020 11:39 AM CST Pending Prescriptions: Disp Refills levothyroxine (SYNTHROID/LEVOTHROID) 175 M*180 ta* Sig: TAKE 2 TABLETS BY MOUTH 6 DAYS PER WEEK AND 1.5 TABS ONE DAY PER WEEK Routing refill request to provider for review/approval because: Last ordered in the hospital AL MEASUREMENTS TEACHER documented in this encounter Plan of Treatment Upcoming Encounters Date Type Department Care Team (Late st Contact Info) Description 08/18/2023 3:00 PM MENTAL MEASUREMENTS TEACHER Office Visit [facility] [address] [facility] [address] [place] [phone] Katiana Read MD [address] [place] [address] documented as of this encounter Visit Diagnoses [...] documented as of this encounter Care Teams Project Management It Specialist Relationship Specialty Start Date End Date Len Adhikari MD PCP - General Family Practice 11/08/16 05/09/22 [place] [address] [place] [address] PCP - General Family Medicine 05/18/22 Jovany Gonzalez MD [facility] 6600 [facility] 605 [place] [address] Orthopedics 02/15/17 Staci Woodward URBAN FORESTER [facility] [address] [place] [address] Nurse Practitioner Nurse Practitioner Psych/Mental Health 05/10/17 [place] [address] [place] [address] Assigned PCP 11/14/16 01/22/22 Reanna Smith, RD [facility] [address] [place] [address] Wastewater Treatment Operator Dietitian, Registered 07/25/19 Katiana Read MD [address] [place] [address] 200 [place], [place] [address] Assigned Endocrinology Provider 05/02/20 08/01/21 Jovita Daly MD [address] [place] [address] Assigned Surgical Provider 05/02/20 10/04/20 Alexander López MD [address] [facility] S [facility] 106 [place], [place] 54[address] Assigned Sleep Provider 05/02/20 11/15/20 Jese Doyle MD 909 [place], [place] [address] Assigned Pulmonology Provider 05/02/20 04/11/21 Roshni Nascimento, ZITA Personal Advocate & Liaison (PAL) Family Medicine 08/18/20 Johana Groves, [facility] [address] [place] [address] Pharmacist Pharmacist 08/28/20 11/26/20 Kiet Swain MD [address] [place] [address] [place] [address] Referring Physician Psychiatry 09/19/20 Winsome Pike APRN BEAMER HAND [address] [place] [address] Nurse Practitioner Psychiatry 09/19/20 Tori Hines, [facility] [address] [place] [address] Vendor - Clinical 09/19/20 Miranda Queen [facility] [address] [place] [address] Pharmacist Pharmacist 11/12/20 Winsome Pike APRN BEAMER HAND [address] [place] [address] Assigned Behavioral Health Provider 01/04/21 07/02/22 Marisel Armando MD [address] [place] [address] Gastroenterology 02/05/21 Marisel Armando MD [address] [place] [address] Assigned Gastroenterology Provider 03/08/21 12/24/22 Inderjit Ugalde MD [address] [facility] 300 [place] [address] Assigned Surgical Provider 02/15/21 08/20/22 Wesley Barrett MD 420 [facility] 96 [place] [address] Assigned Neuroscience Provider 05/10/21 Charles Jaramillo PA-C [address] [facility] 450 [place] [address] Assigned Musculoskeletal Provider 04/26/21 10/15/22 [facility] [address] [place] [address] Assigned MTM Pharmacist 12/05/21 03/26/22 [place] [address] [place] [address] Assigned PCP 01/23/22 05/14/22 [facility] [address] [place] [address] Assigned MTM Pharmacist 04/07/22 05/14/22 [place] [address] [place] [address] Assigned PCP 05/15/22 Katiana Read MD [address] [place] [address] 200 [place] [address] Assigned Endocrinology Provider 06/19/22 [place] [address] [place] [address] Assigned Behavioral Health Provider 07/03/22 12/31/22 Deena Garza, TRANSPORT COORDINATOR BEAMER HAND [address] [place] [place] 985787 Assigned Pain Medication Provider 07/19/22 10/29/22 [place] [address] [place] [address] Nurse Practitioner Nurse Practitioner 10/18/22 Elham Stack, [facility] [address] [place], [place] 9[address] Pharmacist Pharmacist 10/19/22 Emerita Potter, [facility] Clinic Compounder Helper Street Vendor - Clinical 10/29/22 11/02/22 [place] [address] [place] [place] [address] Assigned Pain Medication Provider 10/30/22 12/03/22 Michelle Guzman, DPM, Podiatry/Foot and Ankle Surgery [address] [address] [place] [address] Assigned Musculoskeletal Provider 10/16/22 04/08/23 [place] [address] [place] [address] Assigned Pain Medication Provider 12/04/22 04/01/23 [place] [address] [place] [place] [address] Nurse Practitioner Nurse Practitioner 01/17/23 01/17/23 Aubrey Jones MD [address] [place] [address] Cardiovascular Disease 03/28/23 Blanquita Morales Wastewater Treatment Operator Diabetes Education 04/25/23 Aubrey Jones MD [address] [place] [address] Assigned Heart and Vascular Provider 05/07/23 documented as of this encounter
--- OUTSIDE RECORDS SUMMARY | 2023-08-03 10:15 | XMS_ITS | Encounter Summary ---
Author Name Unknown Organization [place] Address [address] [place] [address]. [place] [address] Care Team Providers Care Palletizer Name Role Phone Len Adhikari MD Primary Care Provider [phone] Jovany Gonzalez MD Unavailable CrissyStaci jeong HEEL PADDER Unavailable [phone] Len Adhikari MD Unavailable Reanna Smith [address] Unavailable [phone] Jamshid Granados MD Unavailable Katiana Read MD Unavailable [phone] Jovita Daly MD Unavailable [phone] Alexander Lpóez MD Unamarcelina lable Jese Doyle MD Unavailable [phone] Roshni Nascimento RN Unavailable Unavailable Johana Groves [facility] Unavailable [phone] Kiet Swain MD Unavailable Winsome Pike APRN SKILLED LABORER Unavailable [phone] Tori Hines [facility] Unavailable Miranda Queen [facility] Unavailable Unavailable Winsome Pike APRN SKILLED LABORER Unavailable Marisel Armando MD Unavailable Marisel Armando MD Unavailable Inderjit Ugalde MD Unavailable Wesley Barrett MD Unavailable [phone] EllaCharles jimenez Michele GEIGER Unavailable +[phone] Miranda Queen [facility] Unavailable Unavailable Leeann Rinaldi MD Unavailable Miranda Queen [facility] Unavailable Unavailable Dyan Fuentes MD Primary Care Provider [phone] Dyan Fuentes MD Unavailable [phone] Katiana Read MD Unavailable [phone] Meme Singleton PhD Unavailable [phone] Deena Garza APRN SKILLED LABORER Unavailable +[phone] Mary Del Cid NP Unavailable + [phone] Elham Stack [facility] Unavailable [phone] Emerita Potter [facility] Unavailable [phone] Mary Del Cid NP Unavailable [phone] Michelle Guzman DPM, Podiatry /Foot and Ankle Surgery Unavailable Dyan Fuentes MD Unavailable [phone] Mary Del Cid NP Unavailable [phone] Aubrey Jones MD Unavailable [phone] Blanquita Morales Unavailable Unavailable Aubrey Jones MD Unavailable [phone] Reason for Visit * Reason Onset Date Comments MyChart Communication 07/02/2020 Encounter Details Date Type Department Care Team (Late st Contact Info) Description 07/02/2020 [facility] [address] [place] [address] [phone] [place] [address] [place] [address] MyChart Communication Social History Tobacco Use Types [...] have Coronavirus / COVID-19? No / Unsure 06/02/2020 12:45 PM DISTRIBUTION FIELD TECHNICIAN documented as of this encounter Miscellaneous Notes * Telephone Encounter - Len Adhikari MD - 07/03/2020 8:26 AM CST Yes agree with going up to 4 times daily, I sent a refill to [facility] in case that is needed for that dosing. They previously have tapered this down from prior gastroenterology recommendations and we would recommend the same as prior if they already know how to do this. Okay for Zofran refill as well. If having fever or abdominal pain then may need more acute treatment and call back or follow-up in clinic. RIBUTION FIELD TECHNICIAN * Telephone Encounter - Henrique Ribera RN - 07/03/2020 7:24 AM CST Please see Zazoom message and advise. Henrique Kirk RN, BSN RIBUTION FIELD TECHNICIAN documented in this encounter Plan of Treatment Upcoming Encounters Date Type Department Care Team (Late st Contact Info) Description 08/18/2023 3:00 PM DISTRIBUTION FIELD TECHNICIAN Office Visit [facility] [address] [place] [address] Katiana Read MD [address] [place] [address] documented as of this encounter Visit Diagnoses Diagnosis Diarrhea, unspecified type Recurrent Clostridium difficile diarrhea Intestinal infection due to clostridium difficile documented in this encounter Additional Health Concerns Infection Onset Date Last Indicated Resolved Time Rule Out COVID-19 08/19/2020 08/19/2020 08/19/2020 4:40 PM DISTRIBUTION FIELD TECHNICIAN Rule Out C-difficile 02/27/2021 02/27/2021 021 6:10 [...] documented as of this encounter Care Teams Palletizer Relationship Specialty Start Date End Date Len Adhikari MD PCP - General Family Practice 11/08/16 05/09/22 [place] [address] [place] [address] PCP - General Family Medicine 05/18/22 Jovany Gonzalez MD [facility] [address]00 [facility] [address] [place], [place] [address] Orthopedics 02/15/17 Staci Woodward NP [facility] [address] [place] [address] Nurse Practitioner Nurse Practitioner Psych/Mental Health 05/10/17 [place] [address] [place] [address] Assigned PCP 11/14/16 01/22/22 Reanna Smith, RD [facility] [address] [place] [address] Electrotype Molder Dietitian, Registered 07/25/19 [place] [address] [facility] [address] [place], [place] [address] Assigned Musculoskeletal Provider 05/02/20 09/13/20 Katiana Read MD [address] [place], [place] [address] Assigned Endocrinology Provider 05/02/20 08/01/21 Jovita Daly MD [address] [place], [place] 086367 Assigned Surgical Provider 05/02/20 10/04/20 Alexander López MD [address] [place], [place] [address] Assigned Sleep Provider 05/02/20 11/15/20 Jese Doyle MD [address] [place] [address] 565905 Assigned Pulmonology Provider 05/02/20 04/11/21 Roshni Nascimento, RN Personal Advocate & Liaison (PAL) Family Medicine 08/18/20 [facility] [address] [place], [place] [id number] Pharmacist Pharmacist 08/28/20 11/26/20 Kiet Swain MD [address] [place] [address] Referring Physician Psychiatry 09/19/20 Winsome Pike APRN SKILLED LABORER [address] [place] [address] 587104 Nurse Practitioner Psychiatry 09/19/20 Tori Hines, [facility] [address] [place] [address] 035204 Door To Door Sales Representative Door To Door Sales Representative - Clinical 09/19/20 [facility] [address] [place] [address] Pharmacist Pharmacist 11/12/20 Winsome Pike APRN SKILLED LABORER [address] [place] [address] 661474 Assigned Behavioral Health Provider 01/04/21 07/02/22 Marisel Armando MD [address] [place] [address] 706925 Gastroenterology 02/05/21 Marisel Armando MD 909 [place] [address] Assigned Gastroenterology Provider 03/08/21 12/24/22 Inderjit Ugalde MD [address] [place] [address] Assigned Surgical Provider 02/15/21 08/20/22 Wesley Barrett MD 420 [facility] 96 [place] [address] Assigned Neuroscience Provider 05/10/21 Charles Jaramillo PA-C 6545 [facility] 450 [place] [address] Assigned Musculoskeletal Provider 04/26/21 10/15/22 Miranda Queen [facility] [address] [place] [address] Assigned MTM Pharmacist 12/05/21 03/26/22 [place] [address] [place] [address] Assigned PCP 01/23/22 05/14/22 Miranda Queen [facility] [address] [place] [address] Assigned MTM Pharmacist 04/07/22 05/14/22 [place] [address] [place] [address] Assigned PCP 05/15/22 Katiana Read MD [address] [place] [address] Assigned Endocrinology Provider 06/19/22 [place] [address] [place] [address] Assigned Behavioral Health Provider 07/03/22 12/31/22 Deena Garza APRN SKILLED LABORER [address] [place] [address] Assigned Pain Medication Provider 07/19/22 10/29/22 Mary Del Cid, RAFAEL [address] [place] [address] Nurse Practitioner Nurse Practitioner 10/18/22 Elham Stack, [facility] 3033 [place] [address] Pharmacist Pharmacist 10/19/22 Emerita Potter, [facility] Clinic News Library Director Door To Door Sales Representative - Clinical 10/29/22 11/02/22 Mary Del Cid, RAFAEL [address] [place] [address] Assigned Pain Medication Provider 10/30/22 12/03/22 Michelle Guzman DPM, Podiatry/Foot and Ankle Surgery [address] [facility] [address] Assigned Musculoskeletal Provider 10/16/22 04/08/23 [place] [address] [place] [address] Assigned Pain Medication Provider 12/04/22 04/01/23 [place] [address] [place] [address] Nurse Practitioner Nurse Practitioner 01/17/23 01/17/23 Aubrey Jones MD [address] [place] [address] Cardiovascular Disease 03/28/23 Blanquita Morales Electrotype Molder Diabetes Education 04/25/23 Aubrey Jones MD [address] [place] [address] Assigned Heart and Vascular Provider 05/07/23 documented as of this encounter
--- OUTSIDE RECORDS SUMMARY | 2023-08-03 10:15 | XMS_ITS | Encounter Summary ---
Author Name Unknown Organization [facility] Address [address] [place] [address]. [place] [address] Care Team Providers Care Chairman And Chief Executive Officer Name Role Phone Len Adhikari MD Primary Care Provider Jovany Gonzalez MD Unavailable CrissyStaci jeong GRAVEL WEIGHER Unavailable [phone] Len Adhikari MD Unavailable +[phone] Unavailable Jamshid Granados MD Unavailable Katiana Read MD Unavailable +[phone] Jovita Daly MD Unavailable +[phone] Alexander López MD Unamarcelina lable Jese Doyle MD Unavailable +[phone] Roshni Nascimento RN Unavailable Unavailable Johana Groves [facility] Unavailable [phone] Kiet Swain MD Unavailable [phone] Winsome Pike APRN LITIGATION SPECIALIST Unavailable +[phone] Tori Hines [facility] Unavailable Miranda Queen [facility] Unavailable Unavailable Winsome Pike APRN LITIGATION SPECIALIST Unavailable Marisel Armando MD Unavailable Marisel Armando MD Unavailable Inderjit Ugalde MD Unavailable [phone] Wesley Barrett MD Unavailable +[phone] EllaFordCharlesfaustino Bautista PA-C Unavailable +[phone] Miranda Queen [facility] Unavailable Unavailable Leeann Rinaldi MD Unavailable Miranda Queen [facility] Unavailable Unavailable Dyan Fuentes MD Primary Care Provider [phone] Dyan Fuentes MD Unavailable +[phone] Katiana Read MD Unavailable +[phone] Meme Singleton PhD Unavailable +[phone] Deena Garza APRN LITIGATION SPECIALIST Unavailable +[phone] Mary Del Cid NP Unavailable + [phone] Elham Stack [facility] Unavailable +[phone] Emerita Potter [facility] Unavailable [phone] Mary Del Cid NP Unavailable + [phone] Michelle Guzman DPM, Podiatry /Foot and Ankle Surgery Unavailable Dyan Fuentes MD Unavailable +[phone] Mary Del Cid NP Unavailable + [phone] Aubrey Jones MD Unavailable +[phone] Blanquita Morales Unavailable Unavailable Aubrey Jones MD Unavailable +[phone] Encounter Details Date Type Department Care Team (Late st Contact Info) Description 08/19/2020 [facility] [address] [address] Davina Casillas LICSW [facility] [address], [address] [place], [place] [address] Social History Tobacco Use Types Packs/Day Years [...] COVID-19? No / Unsure 08/19/2020 11:04 AM GRADALL OPERATOR documented as of this encounter Plan of Treatment Upcoming Encounters Date Type Department Care Team (Late st Contact Info) Description 08/18/2023 3:00 PM GRADALL OPERATOR Office Visit [facility] [address] [place] [address] Katiana Read MD [address] [place] [address] documented as of this encounter Visit Diagnoses Not on filedocumented in this encounter Additional Health Concerns Infection Onset Date Last Indicated Resolved Time Rule Out COVID-19 08/19/2020 08/19/2020 08/19/2020 4:40 PM GRADALL OPERATOR Rule Out C-difficile 02/27/2021 02/27/2021 021 6:10 [...] documented as of this encounter Care Teams Chairman And Chief Executive Officer Relationship Specialty Start Date End Date Len Adhikari MD PCP - General Family Practice 11/08/16 05/09/22 [place] [address] [place] [address] PCP - General Family Medicine 05/18/22 Jovany Gonzalez MD [facility] [address] [facility] [address] [place] [address] Orthopedics 02/15/17 Staci Woodward GRAVEL WEIGHER [place] [address] [place] [address] Nurse Practitioner Nurse Practitioner Psych/Mental Health 05/10/17 [place] [address] [facility] [place] [address] Assigned PCP 11/14/16 01/22/[address] [facility] [address] [place] [address] Sand Screener Dietitian, Registered 07/25/19 [place] [address] [facility] [address] [place], [place] [address] Assigned Musculoskeletal Provider 05/02/20 09/13/20 Katiana Read MD [address] [place], [place] [address] Assigned Endocrinology Provider 05/02/20 08/01/21 Jovita Daly MD [address] [place], [place] [address] Assigned Surgical Provider 05/02/20 10/04/20 Alexander López MD 606 [facility] 106 [place] [address] Assigned Sleep Provider 05/02/20 11/15/20 Jese Doyle MD [address] [place] [address] Assigned Pulmonology Provider 05/02/20 04/11/21 Roshni Nascimento RN Personal Advocate & Liaison (PAL) Family Medicine 08/18/20 [facility] [place] [address] Pharmacist Pharmacist 08/28/20 11/26/20 Kiet Swain MD 2450 [facility] [place], [place] [address] Referring Physician Psychiatry 09/19/20 Winsome Pike, NITROCELLULOSE MAKER LITIGATION SPECIALIST [address] [address] Nurse Practitioner Psychiatry 09/19/20 Tori Hines [facility] 2450 [place], [place] [address] Waste Reduction Coordinator Waste Reduction Coordinator - Clinical 09/19/20 Miranda Queen [facility] [address] [place] [address] Pharmacist Pharmacist 11/12/20 Winsome iPke APRN LITIGATION SPECIALIST [facility] [address] 031314 Assigned Behavioral Health Provider 01/04/21 07/02/22 Marisel Armando MD [address] [place] [address]505 Gastroenterology 02/05/21 Marisel Armando MD [address] [place] [address] 979175 Assigned Gastroenterology Provider 03/08/21 12/24/22 Inderjit Ugalde MD [address] [facility] 300 [place], [place] [address] Assigned Surgical Provider 02/15/21 08/20/22 Wesley Barrett MD 420 [facility] 96 [place], [place] [address] Assigned Neuroscience Provider 05/10/21 Charles Jaramillo PA-C [address] [address] Assigned Musculoskeletal Provider 04/26/21 10/15/22 [facility] [address] [place] [address] Assigned MTM Pharmacist 12/05/21 03/26/22 [place] [address] [place] [address] Assigned PCP 01/23/22 05/14/22 [facility] [address] [place] [address] Assigned MTM Pharmacist 04/07/22 05/14/22 [place] [address] [place] [address] Assigned PCP 05/15/22 Katiana Read MD [address] [place] [address] Assigned Endocrinology Provider 06/19/22 [place] [address] [place] [address] Assigned Behavioral Health Provider 07/03/22 12/31/22 Deena Garza, NITROCELLULOSE MAKER LITIGATION SPECIALIST [address] [place] [address] Assigned Pain Medication Provider 07/19/22 10/29/22 Mary Del Cid, RAFAEL [address] [place] [address] Nurse Practitioner Nurse Practitioner 10/18/22 Elham Stack, [facility] 3033 [place] [address] Pharmacist Pharmacist 10/19/22 Abbey Emerita M, [facility] Clinic Compensation And Benefits Analyst Waste Reduction Coordinator - Clinical 10/29/22 11/02/22 [place] [address] [address] [place] [address] Assigned Pain Medication Provider 10/30/22 12/03/22 Michelle Guzman, DPM, Podiatry/Foot and Ankle Surgery [address] [place] [place] [address] Assigned Musculoskeletal Provider 10/16/22 04/08/23 [place] [address] [place] [address] Assigned Pain Medication Provider 12/04/22 04/01/23 [place] [address] [place] [address] Nurse Practitioner Nurse Practitioner 01/17/23 01/17/23 Aubrey Jones MD [address] [place] [address] Cardiovascular Disease 03/28/23 Blanquita Morales Sand Screener Diabetes Education 04/25/23 Aubrey Jones MD [address] [place] [address] Assigned Heart and Vascular Provider 05/07/23 documented as of this encounter
--- OUTSIDE RECORDS SUMMARY | 2023-08-03 10:15 | XMS_ITS | Encounter Summary ---
Author Name Unknown Organization [facility] Address [address] [place] [address]. [place] [address] Care Team Providers Care Switchboard Manager Name Role Phone Len Adhikari MD Primary Care Provider [phone] Jovany Gonzalez MD Unavailable CrissyStaci jeong DIRECTOR CLIENT SERVICES Unavailable [phone] Len Adhikari MD Unavailable Reanna Smith RD Unavailable Jamshid Granados MD Unavailable Katiana Read MD Unavailable [phone] Jovita Daly MD Unavailable [phone] Alexander López MD Unamarcelina lable Jese Doyle MD Unavailable [phone] Roshni Nascimento RN Unavailable Unavailable Johana Groves [facility] Unavailable Kiet Swain MD Unavailable Winsome Pike APRN BRICK MACHINE OPERATOR Unavailable [phone] Tori Hines [facility] Unavailable Miranda Queen [facility] Unavailable Unavailable Winsome Pike APRN BRICK MACHINE OPERATOR Unavailable Marisel Armando MD Unavailable Marisel Armando MD Unavailable Inderjit Ugalde MD Unavailable [phone] Wesley Barrett MD Unavailable +[phone] EllaFordCharlesfaustino Bautista PA-C Unavailable +[phone] Miranda Queen [facility] Unavailable Unavailable Leenan Rinaldi MD Unavailable Miranda Queen [facility] Unavailable Unavailable Dyan Fuentes MD Primary Care Provider [phone] Dyan Fuentes MD Unavailable +[phone] Katiana Read MD Unavailable +[phone] Meme Singleton PhD Unavailable [phone] Deena Garza APRN BRICK MACHINE OPERATOR Unavailable [phone] Mary Del Cid NP Unavailable + [phone] Elham Stack [facility] Unavailable [phone] Emerita Potter [facility] Unavailable [phone] Mary Del Cid NP Unavailable + [phone] Michelle Guzman DPM, Podiatry /Foot and Ankle Surgery Unavailable Dyan Fuentes MD Unavailable [phone] Mary Del Cid NP Unavailable + [phone] Aubrey Jones MD Unavailable [phone] Blanquita Morales Unavailable Unavailable Aubrey Jones MD Unavailable [phone] Encounter Details Date Type Department Care Team (Late st Contact Info) Description 07/29/2020 Telephone [facility] Behavioral Health Intake 500 [place] [address] Generic, Behavioral Intake, MD Social History Tobacco Use Types Packs/Day Years [...] have Coronavirus / COVID-19? No / Unsure 07/29/2020 1:04 PM RNFA documented as of this encounter Miscellaneous Notes * Telephone Encounter - Lm Power - 07/29/2020 2:59 PM CST Pt Presents in [facility] ed. B: pt was seen by DEC and referring for inpatient due to increase PTSD and anxiety. Pt is C-Diff positive and in full enteric precautions. Per Ele, Infection Prevention Patient must be started on ananti-biotic and be diarrhea, vomit free for 48-72 hours. Will be admitted to medical. documented in this encounter Plan of Treatment Upcoming Encounters Date Type Department Care Team (Late st Contact Info) Description 08/18/2023 3:00 PM RNFA Office Visit [facility] [address] [place] [address] Katiana Read MD [address] [place] [address] documented as of this encounter Visit Diagnoses Not on filedocumented in this encounter Additional Health Concerns Infection Onset Date Last Indicated Resolved Time Rule Out COVID-19 08/19/2020 08/19/2020 08/19/2020 4:40 PM RNFA Rule Out C-difficile 02/27/2021 02/27/2021 08/21/2 021 6:10 PM CDT Rule Out C-difficile [...] documented as of this encounter Care Teams Switchboard Manager Relationship Specialty Start Date End Date Len Adhikari MD PCP - General Family Practice 11/08/16 05/09/22 [place] [address] [place] [address] PCP - General Family Medicine 05/18/22 Jovany Gonzalez MD [facility] 6600 [facility] 605 [place], [place] [address] Orthopedics 02/15/17 Staci Woodward NP [facility] [address] [place] [address] Nurse Practitioner Nurse Practitioner Psych/Mental Health 05/10/17 [place] [address] [place] [address] Assigned PCP 11/14/16 01/22/[address] [facility] [address] [place] [address] Radiation Therapist Dietitian, Registered 07/25/19 [place] [address] [facility] 300 [place] [address] Assigned Musculoskeletal Provider 05/02/20 09/13/20 Katiana Read MD [address] [place] [address] 200 [place] [address] Assigned Endocrinology Provider 05/02/20 08/01/21 Jovita Daly MD [address] [place] [address] Assigned Surgical Provider 05/02/20 10/04/20 Alexander López MD [address] [facility] 106 [place] [address] Assigned Sleep Provider 05/02/20 11/15/20 Jese Doyle MD 909 [place], [place] [address]66[address] Assigned Pulmonology Provider 05/02/20 04/11/21 Roshni Nascimento, ZITA Personal Advocate & Liaison (PAL) Family Medicine 08/18/20 Johana Groves, [facility] [place] [address] Pharmacist Pharmacist 08/28/20 11/26/20 Kiet Swain MD [facility] NG[address] [place] [address] Referring Physician Psychiatry 09/19/20 Winsome Pike APRN BRICK MACHINE OPERATOR [address] [place] [address] 325904 Nurse Practitioner Psychiatry 09/19/20 Tori Hines, [facility] [address] [place] [address]654 Master Yacht Master Yacht - Clinical 09/19/20 Miranda Queen [facility] [address] [place] [address] Pharmacist Pharmacist 11/12/20 iWnsome Pike APRN BRICK MACHINE OPERATOR [address] [place] [address] Assigned Behavioral Health Provider 01/04/21 07/02/22 Marisel Armando MD [address] [place] [address] 709475 Gastroenterology 02/05/21 Marisel Armando MD [address] [place] [address] Assigned Gastroenterology Provider 03/08/21 12/24/22 Inderjit Ugalde MD [address] 866667 Assigned Surgical Provider 02/15/21 08/20/22 Wesley Barrett MD [address] [place] [address] 96 [place], [place] [address] Assigned Neuroscience Provider 05/10/21 Charles Jaramillo PA-C [address] [facility] [address] [place] [address] Assigned Musculoskeletal Provider 04/26/21 10/15/22 Miranda Queen [facility] [address] [place] [address] Assigned MTM Pharmacist 12/05/21 03/26/22 [place] [address] [place] [address] Assigned PCP 01/23/22 05/14/22 Miranda Queen [facility] [address] [place] [address] Assigned MTM Pharmacist 04/07/22 05/14/22 [place] [address] [place] [address] Assigned PCP 05/15/22 Katiana Read MD [address] [place] [address] 200 [place] [address] Assigned Endocrinology Provider 06/19/22 [place] [address] [place] [address] Assigned Behavioral Health Provider 07/03/22 12/31/22 Deena Garza APRN BRICK MACHINE OPERATOR [address] [place] [address] Assigned Pain Medication Provider 07/19/22 10/29/22 Mary Del Cid, DIRECTOR CLIENT SERVICES [address] [place] [address] Nurse Practitioner Nurse Practitioner 10/18/22 Elham Stack, [facility] 3033 [place] [address] Pharmacist Pharmacist 10/19/22 Emerita Potter, [facility] Clinic Crop Or Livestock Tenant Farmer Master Yacht - Clinical 10/29/22 11/02/22 [place] [address] [place] [address] Assigned Pain Medication Provider 10/30/22 12/03/22 Michelle Guzman, DPM, Podiatry/Foot and Ankle Surgery [address] [place] [address] Assigned Musculoskeletal Provider 10/16/22 04/08/23 [place] [address] [place] [address] Assigned Pain Medication Provider 12/04/22 04/01/23 [place] [address] [place] [address] Nurse Practitioner Nurse Practitioner 01/17/23 01/17/23 Aubrey Jones MD [address] [place] [address] Cardiovascular Disease 03/28/23 Blanquita Morales Radiation Therapist Diabetes Education 04/25/23 Aubrey Jones MD [address] [place] 869025 Assigned Heart and Vascular Provider 05/07/23 documented as of this encounter
--- OUTSIDE RECORDS SUMMARY | 2023-08-03 10:15 | XMS_ITS | Encounter Summary ---
Author Name Unknown Organization [facility] Address [address] [place] [address]. [place] [address] Care Team Providers Care Laborer Plumbing Name Role Phone Len Adhikari MD Primary Care Provider Jovany Gonzalez MD Unavailable CrissyStaci jeong EMBEDDED DEVELOPER Unavailable [phone] Len Adhikari MD Unavailable Reanna Smith [address] Unavailable Jamshid Granados MD Unavailable [phone] Katiana Read MD Unavailable [phone] Jovita Daly MD Unavailable [phone] Alexander López MD Unamarcelina lable Jese Doyle MD Unavailable [phone] Roshin Nascimento RN Unavailable Unavailable Johana Groves [facility] Unavailable Kiet Swain MD Unavailable [phone] Winsome Pike APRN ADMINISTRATION PROFESSIONAL Unavailable [phone] Tori Hines [facility] Unavailable Miranda Queen [facility] Unavailable Unavailable Winsome Pike APRN ADMINISTRATION PROFESSIONAL Unavailable Marisel Armando MD Unavailable Marisel Armando MD Unavailable Inderjit Ugalde MD Unavailable [phone] Wesley Barrett MD Unavailable +[phone] EllaCharles Michele [place]IG[place] Unavailable [phone] Miranda Queen [facility] Unavailable Unavailable Leeann Rinaldi MD Unavailable Miranda Queen [facility] Unavailable Unavailable Dyan Fuentes MD Primary Care Provider [phone] Dyan Fuentes MD Unavailable [phone] Katiana Read MD Unavailable [phone] Meme Singleton PhD Unavailable [phone] Deena Garza APRN ADMINISTRATION PROFESSIONAL Unavailable +[phone] Mary Del Cid NP Unavailable + [phone] Elham Stack [facility] Unavailable [phone] Emerita Potter [facility] Unavailable [phone] Mary Del Cid NP Unavailable + [phone] Michelle Guzman DPM, Podiatry /Foot and Ankle Surgery Unavailable Dyan Fuentes MD Unavailable [phone] Mary Del Cid NP Unavailable + [phone] Aubrey Jones MD Unavailable [phone] Blanquita Morales Unavailable Unavailable Aubrey Jones MD Unavailable [phone] Encounter Details Date Type Department Care Team (Late st Contact Info) Description 07/15/2020 [facility] [address] [place] [address] Roshni Nascimento, RN Social History Tobacco [...] have Coronavirus / COVID-19? No / Unsure 07/18/2020 2:55 PM INTERNATIONAL PROJECT ENGINEER documented as of this encounter Plan of Treatment Upcoming Encounters Date Type Department Care Team (Late st Contact Info) Description 08/18/2023 3:00 PM INTERNATIONAL PROJECT ENGINEER Office Visit [facility] [address] [facility] [address] [place] [address] Katiana Read MD [address] [place] [address] documented as of this encounter Visit Diagnoses Not on filedocumented in this encounter Additional Health Concerns Infection Onset Date Last Indicated Resolved Time Rule Out COVID-19 08/19/2020 08/19/2020 08/19/2020 4:40 PM INTERNATIONAL PROJECT ENGINEER Rule Out C-difficile 02/27/2021 02/27/2021 021 6:10 [...] documented as of this encounter Care Teams Laborer Plumbing Relationship Specialty Start Date End Date Len Adhikari MD PCP - General Family Practice 11/08/16 05/09/22 [place] [address] [place] [address] PCP - General Family Medicine 05/18/22 Jovany Gonzalez MD [facility] 6600 [facility] 605 [place], [place] [address] Orthopedics 02/15/17 Staci Woodward NP [facility] [address] [place], [place] [address] Nurse Practitioner Nurse Practitioner Psych/Mental Health 05/10/17 [place] [address] [facility] [place] [address] Assigned PCP 11/14/16 01/22/[address] [facility] [address] [place], [place] [address] Acid Dipper Dietitian, Registered 07/25/19 [place] [address] [facility] [address] [place], [place] [address] Assigned Musculoskeletal Provider 05/02/20 09/13/20 Katiana Read MD [address] [facility] 200 [place], [place] [address] Assigned Endocrinology Provider 05/02/20 08/01/21 Jovita Daly MD [address] [place], [place] 9[address]457 Assigned Surgical Provider 05/02/20 10/04/20 Alexander López MD [address] [facility] 106 [place], [place] [address] Assigned Sleep Provider 05/02/20 11/15/20 Jese Doyle MD 909 [place], [place] 6[address] Assigned Pulmonology Provider 05/02/20 04/11/21 Roshni Nascimento, RN Personal Advocate & Liaison (PAL) Family Medicine 08/18/20 Johana Groves, [facility] [address] [facility] [address] [place], [place] [phone] Pharmacist Pharmacist 08/28/20 11/26/20 Kiet Swain MD [address] [facility] [place], [place] [address] Referring Physician Psychiatry 09/19/20 Winsome Pike APRN ADMINISTRATION PROFESSIONAL [address] [place] [address] Nurse Practitioner Psychiatry 09/19/20 Tori Hines, [facility] 2450 [place], [place] [address] Marketing Analytics Specialist Marketing Analytics Specialist - Clinical 09/19/20 Miranda Queen [facility] [address] [place] [address] Pharmacist Pharmacist 11/12/20 Winsome Pike APRN ADMINISTRATION PROFESSIONAL [address] [place] [address] 483684 Assigned Behavioral Health Provider 01/04/21 07/02/22 Marisel Armando MD [address] [place] [address] 714885 Gastroenterology 02/05/21 Marisel rAmando MD [address] [place] [address] 214695 Assigned Gastroenterology Provider 03/08/21 12/24/22 Inderjit Ugalde MD [address] [address] Assigned Surgical Provider 02/15/21 08/20/22 Wesley Barrett MD [address] [place] [address] 96 [place], [place] [address] Assigned Neuroscience Provider 05/10/21 Charles Jaramillo PA-C 6545 [facility] [address] 873025 Assigned Musculoskeletal Provider 04/26/21 10/15/22 Miranda Queen [facility] [address] [place] [address] Assigned MTM Pharmacist 12/05/21 03/26/22 [place] [address] [place] [address] Assigned PCP 01/23/22 05/14/22 Miranda Queen [facility] [address] [place] [address] Assigned MTM Pharmacist 04/07/22 05/14/22 [place] [address] [place] [address] Assigned PCP 05/15/22 Katiana Read MD [address] [address] Assigned Endocrinology Provider 06/19/22 Meme Singleton, PhD [address] [place] 452447 Assigned Behavioral Health Provider 07/03/22 12/31/22 Deena Garza APRN ADMINISTRATION PROFESSIONAL [address] [place] [address] Assigned Pain Medication Provider 07/19/22 10/29/22 Mary Del Cid, RAFAEL [address] [place] [address] Nurse Practitioner Nurse Practitioner 10/18/22 Elham Stack, [facility] 3033 [place] [address] Pharmacist Pharmacist 10/19/22 Emerita Potter, [facility] Clinic Glass Furnace Tender Marketing Analytics Specialist - Clinical 10/29/22 11/02/22 [place] [address] [place] [address] Assigned Pain Medication Provider 10/30/22 12/03/22 Michelle Guzman, DPM, Podiatry/Foot and Ankle Surgery [address] [place] [address] Assigned Musculoskeletal Provider 10/16/22 04/08/23 [place] [address] [place] [address] Assigned Pain Medication Provider 12/04/22 04/01/23 [place] [address] [place] [address] Nurse Practitioner Nurse Practitioner 01/17/23 01/17/23 Aubrey Jones MD [address] [place] [address] Cardiovascular Disease 03/28/23 Blanquita Morales Acid Dipper Diabetes Education 04/25/23 Aubrey Jones MD [address] [place] [address] Assigned Heart and Vascular Provider 05/07/23 documented as of this encounter
--- OUTSIDE RECORDS SUMMARY | 2023-08-03 10:15 | XMS_ITS | Encounter Summary ---
Author Name Unknown Organization [place] Address [address] [place] [address]. [place] [address] Care Team Providers Care Manager Underwriting Name Role Phone Len Adhikari MD Primary Care Provider Jovany Gonzalez MD Unavailable CrissyStaci jeong GRAPHICS ARTIST Unavailable [phone] Len Adhikari MD Unavailable Reanna Smith RD Unavailable Jamshid Graandos MD Unavailable Katiana Read MD Unavailable [phone] Jovita Daly MD Unavailable [phone] Alexander López MD Unamarcelina lable Jese Doyle MD Unavailable [phone] Roshni Nascimento RN Unavailable Unavailable Johana Groves [facility] Unavailable [phone] iKet Swain MD Unavailable [phone] Winsome Pike APRN REGISTERED RADIOGRAPHER Unavailable [phone] Tori Hines [facility] Unavailable Miranda Queen [facility] Unavailable Unavailable Winsome Pike APRN REGISTERED RADIOGRAPHER Unavailable Marisel Armando MD Unavailable Marisel Armando MD Unavailable Inderjit Ugalde MD Unavailable [phone] Wesley Barrett MD Unavailable [phone] EllaCharles jimenez Michele GEIGER Unavailable [phone] Miranda Queen [facility] Unavailable Unavailable Leeann Rinaldi MD Unavailable Miranda Queen [facility] Unavailable Unavailable Dyan Fuentes MD Primary Care Provider [phone] Dyan Fuentes MD Unavailable [phone] Katiana Read MD Unavailable [phone] Meme Singleton PhD Unavailable [phone] Deena Garza APRN REGISTERED RADIOGRAPHER Unavailable [phone] Mary Del Cid NP Unavailable [phone] Elham Stack [facility] Unavailable [phone] Emerita Potter [facility] Unavailable [phone] Mary Del Cid NP Unavailable [phone] Michelle Guzman DPM, Podiatry /Foot and Ankle Surgery Unavailable Dyan Fuentes MD Unavailable [phone] Mary Del Cid NP Unavailable + [phone] Aubrey Jones MD Unavailable [phone] Blanquita Morales Unavailable Unavailable Aubrey Jones MD Unavailable [phone] Reason for Visit * Reason Onset Date Comments Refill Request 07/12/2020 x4 Encounter Details Date Type Department Care Team (Late st Contact Info) Description 07/12/2020 [facility] [address] [place] [phone] Katiana Read MD [address] [place] [address] Refill Request (x4) Social History Tobacco Use Types Packs/Day Years [...] Telephone Encounter - Katiana Read MD - 07/17/2020 1:27 PM MD PEDIATRIC ALLERGIST Pt reports that she does not need medication at this time. PEDIATRIC ALLERGIST * Telephone Encounter - Rachelle Benites CMA - 07/17/2020 7:39 AM MD PEDIATRIC ALLERGIST Zenobia, I currently don't need a refill for synthetic. I get 90 days of each med due to my insurance. Thanks, Kaila Hernandez PEDIATRIC ALLERGIST * Telephone Encounter - Rachelle Benites CMA - 07/16/2020 4:46 PM MD PEDIATRIC ALLERGIST Message sent via [employer]. Zenobia Benites CMA [facility] PEDIATRIC ALLERGIST * Telephone Encounter - Katiana Read MD - 07/16/2020 4:35 PM MD PEDIATRIC ALLERGIST dexcom Rx sent. Please check dose of synthorid with pt. PEDIATRIC ALLERGIST * Telephone Encounter - Marisel Thompson RN - 07/16/2020 9:45 AM CST Basaglar Prescription approved per [facility] Refill Protocol. Levothyroxine Routing refill request to provider for review/approval because: Labs out of range: TSH TSH Date Value Ref Range Status 01/22/2020 0.13 (L) 0.40 - 4.00 mU/L Final Dexacom Routing refill request to provider for review/approval because: Drug not on the G refill protocol PEDIATRIC ALLERGIST * Telephone Encounter - Marisel Thompson RN - 07/16/2020 9:44 AM CST Requested Prescriptions Pending Prescriptions Disp Refills ??? insulin glargine (BASAGLAR KWIKPEN) 100 UNIT/ML pen [Pharmacy Med Name: BASAGLAR KWK PEN 100U/ML] 30 mL 1 Sig: INJECT 34 UNITS SUBCUTANEOUSLY DAILY Long Acting Insulin Protocol Passed - 07/12/2020 7:12 PM Passed - Serum creatinine on file in past 12 months Recent Labs Lab Test 02/10/20 2309 11/09/18 1808 11/09/18 1808 CR 0.88 < > -- CREAT -- -- 0.8 < > = values in this interval not displayed. Ok to refill medication if creatinine is low Passed - HgbA1C in past 3 or 6 months If HgbA1C is 8 or greater, it needs to be on file within the past 3 months. If less than 8, must beon file within the past 6 months. Recent Labs Lab Test 01/22/20 1529 A1C 7.1* Passed - Medication is active on med list Passed - Patient is age 18 or older Passed - Recent (6 mo) or future (30 days) visit within the authorizing provider's specialty Patient had office visit in the last 6 months or has a visit in the next 30 days with authorizing provider or within the authorizing provider's specialty. See Patient Info tab in inbasket, or Choose Columns in Meds & Orders section of the refill encounter. ??? SYNTHROID 175 MCG tablet [Pharmacy Med Name: SYNTHROID TAB 0.175MG] 180 tablet 0 Sig: TAKE 2 TABLETS (=350MCG) DAILY Thyroid Protocol Failed - 07/12/2020 7:12 PM Failed - Normal TSH on file in past 12 months Recent Labs Lab Test 01/22/20 1529 TSH 0.13* Passed - Patient is 12 years or older Passed - Recent (12 mo) or future (30 days) visit within the authorizing provider's specialty Patient has had an office visit with the authorizing provider or a provider within the authorizing providers department within the previous 12 mos or has a future within next 30 days. See Patient Info tab in inbasket, or Choose Columns in Meds & Orders section of the refill encounter. Passed - Medication is active on med list Passed - No active on record If patient is or has had a positive test, please check TSH. Passed - No positive test in past 12 months If patient is or has had a positive test, please check TSH. ??? Continuous Blood Gluc Transmit (DEXCOM G6 TRANSMITTER) MISC [Pharmacy Med Name: DEXCOM G6 MIS TRANSMIT] 1 each 0 Sig: USE DAILY. There is no refill protocol information for this order ??? levothyroxine (SYNTHROID) 100 MCG tablet [Pharmacy Med Name: SYNTHROID TAB 0.1MG] 13 tablet 0 Sig: TAKE 1 TABLET ONCE A WEEK DIRECTED. (TAKE ALONG WITH 175MCG TABLETS) Thyroid Protocol Failed - 07/12/2020 7:12 PM Failed - Normal TSH on file in past 12 months Recent Labs Lab Test 01/22/20 1529 TSH 0.13* Passed - Patient is 12 years or older Passed - Recent (12 mo) or future (30 days) visit within the authorizing provider's specialty Patient has had an office visit with the authorizing provider or a provider within the authorizing providers department within the previous 12 mos or has a future within next 30 days. See Patient Info tab in inbasket, or Choose Columns in Meds & Orders section of the refill encounter. Passed - Medication is active on med list Passed - No active on record If patient is or has had a positive test, please check TSH. Passed - No positive test in past 12 months If patient is or has had a positive test, please check TSH. 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 Type 2 diabetes mellitus without complication, with long-term current use of insulin (H) documented in this encounter Additional Health Concerns Infection Onset Date Last Indicated Resolved Time Rule Out COVID-19 08/19/2020 08/19/2020 08/19/2020 4:40 PM MD PEDIATRIC ALLERGIST Rule Out C-difficile 02/27/2021 02/27/2021 021 6:10 PM CDT Rule Out C-difficile 10/14/2022 10/15/2022 023 12:33 AM CDT Rule Out C-difficile 10/15/2022 10/15/2022 023 5:39 AM CDT C-difficile 10/15/2022 10/27/2022 11/26/2022 11:4 0 PM CDT Rule Out C-difficile 10/26/2022 10/27/2022 023 2:14 AM CDT Rule Out C-difficile 12/05/2022 12/05/2022 023 9:44 AM CDT Assessment Noted Time PHQ-9 Depression Total Score: 10 01/01/ 019 3:25 PM CDT documented as of this encounter Care Teams Manager Underwriting Relationship Specialty Start Date End Date Len Adhikari MD PCP - General Family Practice 11/08/16 05/09/22 [place] [address] [place] [address] PCP - General Family Medicine 05/18/22 Jovany Gonzalez MD [facility] [address] [facility] 605 [place] [address] Orthopedics 02/15/17 Staci Woodward NP [place] [address] [place] [address] Nurse Practitioner Nurse Practitioner Psych/Mental Health 05/10/17 [place] [address] [facility] [place] [address] Assigned PCP 11/14/16 01/22/[address] [facility] [address] [place] [address] Retail Parts Professional Dietitian, Registered 07/25/19 [place] [address] [facility] [address] [place] [address] Assigned Musculoskeletal Provider 05/02/20 09/13/20 Katiana Read MD [address] [place] [address] 200 [place] [address] Assigned Endocrinology Provider 05/02/20 08/01/21 Jovita Daly MD [address] [place] [address] Assigned Surgical Provider 05/02/20 10/04/20 Alexander López MD [address] [place] [address] 106 [place], [place] [address] Assigned Sleep Provider 05/02/20 11/15/20 Jese Doyle MD 9[address] [place] [address] Assigned Pulmonology Provider 05/02/20 04/11/21 Roshni Nascimento, RN Personal Advocate & Liaison (PAL) Family Medicine 08/18/20 [facility] [address] [facility] [place], [place] [phone] Pharmacist Pharmacist 08/28/20 11/26/20 Kiet Swain MD [address] [place] [address] [phone] Referring Physician Psychiatry 09/19/20 Winsome Pike APRN REGISTERED RADIOGRAPHER [address] [address] Nurse Practitioner Psychiatry 09/19/20 Troi Hines, [facility] [place] [address] Facilities Mechanical Design Engineer Facilities Mechanical Design Engineer - Clinical 09/19/20 Miranda Queen, [facility] [address] [place] [address] Pharmacist Pharmacist 11/12/20 Winsome Pike APRN REGISTERED RADIOGRAPHER [address] [place] [address] Assigned Behavioral Health Provider 01/04/21 07/02/22 Marisel Armando MD [address] [place] [address] Gastroenterology 02/05/21 Marisel Armando MD [address] [place] [address] Assigned Gastroenterology Provider 03/08/21 12/24/22 Inderjit Ugalde MD [address] [facility] 300 [place] [address] Assigned Surgical Provider 02/15/21 08/20/22 Wesley Barrett MD [address] [facility] [address] [place], [place] [address] Assigned Neuroscience Provider 05/10/21 Charles Jaramillo PA-C [address] [address] Assigned Musculoskeletal Provider 04/26/21 10/15/22 Miranda Queen [facility] [address] [place] [address] Assigned MTM Pharmacist 12/05/21 03/26/22 [place] [address] [place] [address] Assigned PCP 01/23/22 05/14/22 Miranda Queen [facility] [address] [facility] [address] Assigned MTM Pharmacist 04/07/22 05/14/22 [place] [address] [place] [address] Assigned PCP 05/15/22 Katiana Read MD [address] [place] [address] Assigned Endocrinology Provider 06/19/22 [place] [address] [place] [address] Assigned Behavioral Health Provider 07/03/22 12/31/22 Deena Garza APRN REGISTERED RADIOGRAPHER [address] [place] [address] Assigned Pain Medication Provider 07/19/22 10/29/22 Mary Del Cid, RAFAEL [address] [place] [address] Nurse Practitioner Nurse Practitioner 10/18/22 Elham Stack, [facility] [address] [place] [address] Pharmacist Pharmacist 10/19/22 Emerita Potter, [facility] Clinic Personal Protection Specialist Facilities Mechanical Design Engineer - Clinical 10/29/22 11/02/22 [place] [address] [place] [address] Assigned Pain Medication Provider 10/30/22 12/03/22 Michelle Guzman DPM, Podiatry/Foot and Ankle Surgery [address] [place] [address] Assigned Musculoskeletal Provider 10/16/22 04/08/23 [place] [address] [place] [address] Assigned Pain Medication Provider 12/04/22 04/01/23 [place] [address] [address] [place] [place] [address] Nurse Practitioner Nurse Practitioner 01/17/23 01/17/23 Aubrey Jones MD [address] [place] [address] Cardiovascular Disease 03/28/23 Blanquita Morales Retail Parts Professional Diabetes Education 04/25/23 Aubrey Jones MD [address] [place] [address] Assigned Heart and Vascular Provider 05/07/23 documented as of this encounter
--- OUTSIDE RECORDS SUMMARY | 2023-08-03 10:15 | XMS_ITS | Encounter Summary ---
Author Name Unknown Organization [place] Address [address] [place] [address]. [place] [address] Care Team Providers Care Correctional Officer Lieutenant Name Role Phone Len Adhikari MD Primary Care Provider [phone] Jovany Gonzalez MD Unavailable CrissyStaci jeong MUSSEL OPENER Unavailable [phone] Len Adhikari MD Unavailable Reanna Smith RD Unavailable Jamshid Granados MD Unavailable Katiana Read MD Unavailable [phone] Jovita Daly MD Unavailable [phone] Alexander López MD Unamarcelina lable Jese Doyle MD Unavailable [phone] Roshni Nascimento RN Unavailable Unavailable Johana Groves [facility] Unavailable Kiet Swain MD Unavailable Winsome Pike APRN CHAINSTITCH TUNNEL ELASTIC OPERATOR Unavailable [phone] Tori Hines [facility] Unavailable Miranda Queen [facility] Unavailable Unavailable Winsome Pike APRN CHAINSTITCH TUNNEL ELASTIC OPERATOR Unavailable Marisel Armando MD Unavailable Marisel Armando MD Unavailable Inderjit Ugalde MD Unavailable [phone] Wesley Barrett MD Unavailable [phone] EllaCharles jimenez Michele GEIGER Unavailable [phone] Miranda Queen [facility] Unavailable Unavailable Leeann Rinaldi MD Unavailable Miranda Queen [facility] Unavailable Unavailable Dyan Fuentes MD Primary Care Provider [phone] Dyan Fuentes MD Unavailable [phone] Katiana Read MD Unavailable [phone] Meme Singleton PhD Unavailable [phone] Deena Garza APRN CHAINSTITCH TUNNEL ELASTIC OPERATOR Unavailable [phone] Mary Del Cid NP Unavailable [phone] Elham Stack [facility] Unavailable Emerita Potter [facility] Unavailable [phone] Mary Del Cid NP Unavailable + [phone] [...] Care Team (Late st Contact Info) Description 08/08/2020 [facility] [address] [place] [phone] Katiana Read MD [address] [place] [address] Medication Refill Social History Tobacco Use Types [...] have Coronavirus / COVID-19? No / Unsure 08/09/2020 2:25 PM OPTOMETRIST PRESIDENT/PRACTICE OWNER documented as of this encounter Miscellaneous Notes * Telephone Encounter - Katiana Read MD - 08/12/2020 12:13 PM OPTOMETRIST PRESIDENT/PRACTICE OWNER Rx sent. METRIST PRESIDENT/PRACTICE OWNER * Telephone Encounter - Marisel Thompson RN - 08/08/2020 1:32 PM CST Pending Prescriptions: Disp Refills NOVOLOG FLEXPEN 100 UNIT/ML soln [Pharmacy*15 mL 1 Sig: INJECT SUBCUTANEOUSLY 3 TIMES A DAY BEFORE MEALS USING A SLIDING SCALE. MAX 10 UNITS PER DAY Routing refill request to provider for review/approval because: Patient fails protocol METRIST PRESIDENT/PRACTICE OWNER documented in this encounter Plan of Treatment Upcoming Encounters Date Type Department Care Team (Late st Contact Info) Description 08/18/2023 3:00 PM OPTOMETRIST PRESIDENT/PRACTICE OWNER Office Visit [facility] [address] [place] [address] Katiana Read MD [address] [place], [place] [address] documented as of this encounter Visit Diagnoses Diagnosis Type 1 diabetes mellitus with diabetic neuropathy (H) Type I (juvenile type) diabetes mellitus with neurological manifestations, not stated as uncontrolled documented in this encounter Additional Health Concerns Infection Onset Date Last Indicated Resolved Time Rule Out COVID-19 08/19/2020 08/19/2020 08/19/2020 4:40 PM OPTOMETRIST PRESIDENT/PRACTICE OWNER Rule Out C-difficile 02/27/2021 02/27/2021 021 6:10 [...] documented as of this encounter Care Teams Correctional Officer Lieutenant Relationship Specialty Start Date End Date Len Adhikari MD PCP - General Family Practice 11/08/16 05/09/22 [place] [address] [place] [address] PCP - General Family Medicine 05/18/22 Jovany Gonzalez MD [facility] [address] [facility] [address] [place] [address] Orthopedics 02/15/17 Staci Woodward MUSSEL OPENER [facility] [address] [place] [address] Nurse Practitioner Nurse Practitioner Psych/Mental Health 05/10/17 [place] [address] [address] [facility] [place] [address] Assigned PCP 11/14/16 01/22/[address] [facility] [address] [place] [address] Crating And Moving Estimator Dietitian, Registered 07/25/19 [place] [address] [facility] 300 [place] [address] Assigned Musculoskeletal Provider 05/02/20 09/13/20 Katiana Read MD [address] [facility] 200 [place] [address] Assigned Endocrinology Provider 05/02/20 08/01/21 Jovita Daly MD [address] [place] [address] Assigned Surgical Provider 05/02/20 10/04/20 Alexander Lóepz MD [address] [facility] 106 [place] [address] Assigned Sleep Provider 05/02/20 11/15/20 Jese Doyle MD [address] [place] [address] [id number] Assigned Pulmonology Provider 05/02/20 04/11/21 Roshni Nascimento, RN Personal Advocate & Liaison (PAL) Family Medicine 08/18/20 Johana Groves, [facility] [address] [place] [address] [address] [place], [place] [phone] Pharmacist Pharmacist 08/28/20 11/26/20 Kiet Swain MD [address] [place] [address] [phone] Referring Physician Psychiatry 09/19/20 Winsome Pike APRN CHAINSTITCH TUNNEL ELASTIC OPERATOR [address] [place] [address] Nurse Practitioner Psychiatry 09/19/20 Tori Hines [facility] [address] [place] [address] Associate Professor Of Biology Associate Professor Of Biology - Clinical 09/19/20 [facility] [address] [place] [address] Pharmacist Pharmacist 11/12/20 Winsome Pike APRN CHAINSTITCH TUNNEL ELASTIC OPERATOR [address] [place] [address] [id number] Assigned Behavioral Health Provider 01/04/21 07/02/22 Marisel Armando MD [address] [place] [address] [id number] Gastroenterology 02/05/21 Marisel Armando MD [address] [place] [address] Assigned Gastroenterology Provider 03/08/21 12/24/22 Inderjit Ugalde MD [address] [facility] [address] [place] [address] Assigned Surgical Provider 02/15/21 08/20/22 Wesley Barrett MD 420 [facility] 96 [place] [address] Assigned Neuroscience Provider 05/10/21 Charles Jaramillo PA-C 6545 [facility] [address] [place] [address] Assigned Musculoskeletal Provider 04/26/21 10/15/22 [facility] [address] [place] [address] Assigned MTM Pharmacist 12/05/21 03/26/22 [place] [address] [place] [address] Assigned PCP 01/23/22 05/14/22 Miranda Queen [facility] [address] [place] [address] Assigned MTM Pharmacist 04/07/22 05/14/22 [place] [address] [place] [address] Assigned PCP 05/15/22 Katiana Read MD [address] [address] [place] [address] Assigned Endocrinology Provider 06/19/22 [place] [address] [address] [place] [address] Assigned Behavioral Health Provider 07/03/22 12/31/22 Deena Garza APRN CHAINSTITCH TUNNEL ELASTIC OPERATOR [address] [address] [place] [address] Assigned Pain Medication Provider 07/19/22 10/29/22 Mary Del Cid, RAFAEL [address] [place] [address] Nurse Practitioner Nurse Practitioner 10/18/22 Elham Stack, [facility] [address] [place], [place] [address] Pharmacist Pharmacist 10/19/22 Emerita Potter, [facility] Clinic Meter Tester Associate Professor Of Biology - Clinical 10/29/22 11/02/22 Mary Del Cid, RAFAEL [address] [address] [place] [address] Assigned Pain Medication Provider 10/30/22 12/03/22 Michelle Guzman, DPM, Podiatry/Foot and Ankle Surgery [address] [address] [place] [address] Assigned Musculoskeletal Provider 10/16/22 04/08/23 [place] [address] [place] [address] Assigned Pain Medication Provider 12/04/22 04/01/23 [place] [address] [address] [address] Nurse Practitioner Nurse Practitioner 01/17/23 01/17/23 Aubrey Jones MD [address] [place] [address] Cardiovascular Disease 03/28/23 Blanquita Morales Crating And Moving Estimator Diabetes Education 04/25/23 Aubrey Jones MD [address] [place] [address] Assigned Heart and Vascular Provider 05/07/23 documented as of this encounter
--- OUTSIDE RECORDS SUMMARY | 2023-08-03 10:15 | XMS_ITS | Encounter Summary ---
Author Name Unknown Organization [facility] Address [address] [place] [address]. [place] [address] Care Team Providers Care Appeals Writer Name Role Phone Len Adhikari MD Primary Care Provider [phone] Jovany Gonzalez MD Unavailable CrissyStaci jeong HOT SAW HELPER Unavailable [phone] Len Adhikari MD Unavailable Reanna Smith RD Unavailable [phone] Jamshid Granados MD Unavailable +[phone] Katiana Read MD Unavailable +[phone] Jovita Daly MD Unavailable +[phone] Alexander López MD Unamarcelina lable Jese Doyle MD Unavailable +[phone] Roshni Nascimento RN Unavailable Unavailable Johana Groves [facility] Unavailable +[phone] Kiet Swain MD Unavailable [phone] Winsome Pike APRN ELECTRICAL ACCESSORIES II ASSEMBLER Unavailable +[phone] Tori Hines [facility] Unavailable Miranda Queen [facility] Unavailable Unavailable Winsome Pike APRN ELECTRICAL ACCESSORIES II ASSEMBLER Unavailable Marisel Armando MD Unavailable Marisel Armando MD Unavailable Inderjit Ugalde MD Unavailable [phone] Wesley Barrett MD Unavailable +[phone] EllaCharles jimenez Michele GEIGER Unavailable +[phone] Miranda Queen [facility] Unavailable Unavailable Leeann Rinaldi MD Unavailable Miranda Queen [facility] Unavailable Unavailable Dyan Fuentes MD Primary Care Provider [phone] Dyan Fuentes MD Unavailable [phone] Katiana Read MD Unavailable +[phone] Meme Singleton PhD Unavailable +[phone] Deena Garza APRN ELECTRICAL ACCESSORIES II ASSEMBLER Unavailable +[phone] Mary Del Cid NP Unavailable + [phone] Elham Stack [facility] Unavailable +[phone] Emerita Potter [facility] Unavailable +[phone] Mary Del Cid NP Unavailable + [phone] Michelle Guzman DPM, Podiatry /Foot and Ankle Surgery Unavailable Dyan Fuentes MD Unavailable [phone] Mary Del Cid NP Unavailable + [phone] Aubrey Jones MD Unavailable [phone] Blanquita Morales Unavailable Unavailable Aubrey Jones MD Unavailable +[phone] Encounter Details Date Type Department Care Team (Late st Contact Info) Description 07/25/2020 [facility] [id number] [place] [phone] [place] [address] [address] [address] Social History Tobacco Use Types Packs/Day Years [...] have Coronavirus / COVID-19? No / Unsure 07/26/2020 3:47 PM TABLE TOP TILE SETTER documented as of this encounter Plan of Treatment Upcoming Encounters Date Type Department Care Team (Late st Contact Info) Description 08/18/2023 3:00 PM TABLE TOP TILE SETTER Office Visit [facility] [address] [facility] [address] [place] [address] Katiana Read MD [address] [place] [address] [address] [place] [address] documented as of this encounter Visit Diagnoses Not on filedocumented in this encounter Additional Health Concerns Infection Onset Date Last Indicated Resolved Time Rule Out COVID-19 08/19/2020 08/19/2020 08/19/2020 4:40 PM TABLE TOP TILE SETTER Rule Out C-difficile 02/27/2021 02/27/2021 021 6:10 [...] documented as of this encounter Care Teams Appeals Writer Relationship Specialty Start Date End Date Len Adhikari MD PCP - General Family Practice 11/08/16 05/09/22 [place] [address] [place] [address] PCP - General Family Medicine 05/18/22 Jovany Gonzalez MD [facility] [address] [facility] [address] [place] [address] Orthopedics 02/15/17 Staci Woodward, HOT SAW HELPER [facility] [address] [place] [address] Nurse Practitioner Nurse Practitioner Psych/Mental Health 05/10/17 [place] [address] [facility] [address] Assigned PCP 11/14/16 01/22/[address] [facility] [address] [place] [address] Meat Loiner Dietitian, Registered 07/25/19 [place] [address] [facility] [address] [place], [place] [address] Assigned Musculoskeletal Provider 05/02/20 09/13/20 Katiana Read MD [address] [place], [place] [address] Assigned Endocrinology Provider 05/02/20 08/01/21 Jovita Daly MD [address] [facility], [place] [address] Assigned Surgical Provider 05/02/20 10/04/20 Alexander López MD [address] [facility] 106 [place] [address] Assigned Sleep Provider 05/02/20 11/15/20 Jese Doyle MD 909 [place] [address] Assigned Pulmonology Provider 05/02/20 04/11/21 Roshni Nascimento RN Personal Advocate & Liaison (PAL) Family Medicine 08/18/20 Johana Groves [facility] [facility] [address] [place], [place] [id number] Pharmacist Pharmacist 08/28/20 11/26/20 Kite Swain MD [address] [facility] [address] [place], [place] [address] Referring Physician Psychiatry 09/19/20 Winsome Pike APRN ELECTRICAL ACCESSORIES II ASSEMBLER [address] [address] Nurse Practitioner Psychiatry 09/19/20 Tori Hines [facility] [address] [place], [place] [address] Customer Service Dispatcher Customer Service Dispatcher - Clinical 09/19/20 Miranda Queen [facility] [address] [place] [address] Pharmacist Pharmacist 11/12/20 Winsome Pike, VIDHI ELECTRICAL ACCESSORIES II ASSEMBLER [address] [id number] Assigned Behavioral Health Provider 01/04/21 07/02/22 Marisel Armando MD [address] [place] [address] Gastroenterology 02/05/21 Marisel Armando MD [address] [place], [place] [address] Assigned Gastroenterology Provider 03/08/21 12/24/22 Inderjit Ugalde MD [address] [facility] [address] [place], [place] [address] Assigned Surgical Provider 02/15/21 08/20/22 Wesley Barrett MD 420 [facility] 96 [place], [place] [address] Assigned Neuroscience Provider 05/10/21 Charles Jaramillo PA-C [address] [address] Assigned Musculoskeletal Provider 04/26/21 10/15/22 [facility] [address] [place] [address] Assigned MTM Pharmacist 12/05/21 03/26/22 [place] [address] [place] [address] Assigned PCP 01/23/22 05/14/22 [facility] [address] [place] [address] Assigned MTM Pharmacist 04/07/22 05/14/22 [place] [address] [place] [address] Assigned PCP 05/15/22 Katiana Read MD [address] [place] [address] Assigned Endocrinology Provider 06/19/22 [place] [address] [place] [address] Assigned Behavioral Health Provider 07/03/22 12/31/22 Deena Garza, LOOM REPAIRER ELECTRICAL ACCESSORIES II ASSEMBLER [address] [place] [address] Assigned Pain Medication Provider 07/19/22 10/29/22 Mary Del Cid, RAFAEL [address] [place] [address] Nurse Practitioner Nurse Practitioner 10/18/22 Elham Stack, [facility] 3033 [place] [address] Pharmacist Pharmacist 10/19/22 Abbey Emerita M, [facility] Clinic Soil Sort Worker Customer Service Dispatcher - Clinical 10/29/22 11/02/22 [place] [address] [address] [place] [address] Assigned Pain Medication Provider 10/30/22 12/03/22 Michelle Guzman, DPM, Podiatry/Foot and Ankle Surgery [address] [place] [address] Assigned Musculoskeletal Provider 10/16/22 04/08/23 [place] [address] [place] [address] Assigned Pain Medication Provider 12/04/22 04/01/23 [place] [address] [place] [address] Nurse Practitioner Nurse Practitioner 01/17/23 01/17/23 Aubrey Jones MD [address] [place] [address] Cardiovascular Disease 03/28/23 Blanquita Morales Meat Loiner Diabetes Education 04/25/23 Aubrey Jones MD [address] [place] [address] Assigned Heart and Vascular Provider 05/07/23 documented as of this encounter
--- OUTSIDE RECORDS SUMMARY | 2023-08-03 10:15 | XMS_ITS | Encounter Summary ---
Author Name Unknown Organization [facility] Address [address] [place] [address]. [place] [address] Care Team Providers Care Gift Shop Manager Name Role Phone Len Adhikari MD Primary Care Provider Jovany Gonzalez MD Unavailable CrissyStaci jeong FOUNTAIN WORKER Unavailable [phone] Len Adhikari MD Unavailable Reanna Smith RD Unavailable [phone] Jamshid Granados MD Unavailable [phone] Katiana Read MD Unavailable [phone] Jovita Daly MD Unavailable [phone] Alexander López MD Unamarcelina lable Jese Doyle MD Unavailable [phone] Roshni Nascimento RN Unavailable Unavailable Johana Groves [facility] Unavailable [phone] Kiet Swain MD Unavailable [phone] Winsome Pike APRN PEOPLESOFT FUNCTIONAL ANALYST Unavailable +[phone] Tori Hines [facility] Unavailable Miranda Queen [facility] Unavailable Unavailable Winsome Pike APRN PEOPLESOFT FUNCTIONAL ANALYST Unavailable Marisel Armando MD Unavailable Marisel Armando MD Unavailable Inderjit Ugalde MD Unavailable [phone] Wesley Barrett MD Unavailable +[phone] EllaCharles Michele GEIGER Unavailable +[phone] Miranda Queen [facility] Unavailable Unavailable Leeann Rinaldi MD Unavailable Miranda Queen [facility] Unavailable Unavailable Dyan Fuentes MD Primary Care Provider [phone] Dyan Fuentes MD Unavailable [phone] Katiana Read MD Unavailable [phone] Meme Singleton PhD Unavailable [phone] Deena Garza APRN PEOPLESOFT FUNCTIONAL ANALYST Unavailable +[phone] Mary Del Cid NP Unavailable + [phone] Elham Stack [facility] Unavailable +[phone] Emerita Potter [facility] Unavailable [phone] Mary Del Cid NP Unavailable + [phone] Michelle Guzman DPM, Podiatry /Foot and Ankle Surgery Unavailable Dyan Fuentes MD Unavailable +[phone] Mary Del Cid NP Unavailable + [phone] Aubrey Jones MD Unavailable [phone] Blanquita Morales Unavailable Unavailable Aubrey Jones MD Unavailable +[phone] Reason for Visit * Reason Onset Date Comments Home Care/Hospice 08/13/2020 Encounter Details Date Type Department Care Team (Late st Contact Info) Description 08/13/2020 [facility] [place] [address] [place] [address] [place] [address] [place] [address] Home Care/Hospice Social History Tobacco Use Types Packs/Day Years [...] have Coronavirus / COVID-19? Unable to assess 08/15/2020 8:30 AM WEBSITE DEVELOPER documented as of this encounter Miscellaneous Notes * Telephone Encounter - Jese Bunch - 08/13/2020 3:54 PM CST Reason for Call: Other Home Care Detailed comments: Pt is currently hospitalized and will be discharging soon from ER need to confirm If Provider is Pt's PCP and will follow Pt's care through Home Care Services. They would only needa call back if Provider is unwilling. Phone Number RN can be reached at: Other phone number: [phone] Best Time: anytime Can we leave a detailed message on this number? YES Call taken on 08/13/2020 at 3:57 PM by Jese Bunch ITE DEVELOPER documented in this encounter Plan of Treatment Upcoming Encounters Date Type Department Care Team (Late st Contact Info) Description 08/18/2023 3:00 PM WEBSITE DEVELOPER Office Visit [facility] [address] [place] [address] Katiana Read MD [address] [place] [address] documented as of this encounter Visit Diagnoses Not on filedocumented in this encounter Additional Health Concerns Infection Onset Date Last Indicated Resolved Time Rule Out COVID-19 08/19/2020 08/19/2020 08/19/2020 4:40 PM WEBSITE DEVELOPER Rule Out C-difficile 02/27/2021 02/27/2021 021 6:10 [...] documented as of this encounter Care Teams Gift Shop Manager Relationship Specialty Start Date End Date Len Adhikari MD PCP - General Family Practice 11/08/16 05/09/22 [place] [address] [place] [address] PCP - General Family Medicine 05/18/22 Jovany Gonzalez MD [facility] [address] [facility] 605 [place] [address] Orthopedics 02/15/17 Staci Woodward FOUNTAIN WORKER [facility] [address] [place] [address] Nurse Practitioner Nurse Practitioner Psych/Mental Health 05/10/17 [place] [address] [place] [address] Assigned PCP 11/14/16 01/22/22 Reanna Smith, [facility] [address] [place] [address] Production Drilling Machine Operator Dietitian, Registered 07/25/19 [place] [address] [facility] [address] [place], [place] [address] Assigned Musculoskeletal Provider 05/02/20 09/13/20 Katiana Read MD [address] [place], [place] [address] Assigned Endocrinology Provider 05/02/20 08/01/21 Jovita Daly MD [address] [place] [address] Assigned Surgical Provider 05/02/20 10/04/20 Alexander López MD [address] [place], [place] [address] Assigned Sleep Provider 05/02/20 11/15/20 Jese Doyle MD 909 [facility] [address] [place], [place] [address] Assigned Pulmonology Provider 05/02/20 04/11/21 Roshni Nascimento, RN Personal Advocate & Liaison (PAL) Family Medicine 08/18/20 Johana Groves [facility] [address] [facility] [place] [address] Pharmacist Pharmacist 08/28/20 11/26/20 Kiet Swain MD [address] [place] [address] Referring Physician Psychiatry 09/19/20 Winsome Pike APRN PEOPLESOFT FUNCTIONAL ANALYST [address] [place] [address] Nurse Practitioner Psychiatry 09/19/20 Tori Hines [facility] [address] [place] [address] Operations Vice President Operations Vice President - Clinical 09/19/20 [facility] [id number] [place] [address] Pharmacist Pharmacist 11/12/20 Winsome Pike APRN PEOPLESOFT FUNCTIONAL ANALYST [address] [place] [address] Assigned Behavioral Health Provider 01/04/21 07/02/22 Marisel Armando MD [address] [place] [address] Gastroenterology 02/05/21 Marisel Armando MD [address] [place] [address] Assigned Gastroenterology Provider 03/08/21 12/24/22 Inderjit Ugalde MD [address] [place] [address] Assigned Surgical Provider 02/15/21 08/20/22 Wesley Barrett MD 420 [facility] [address] [place] [address] Assigned Neuroscience Provider 05/10/21 Charles Jaramillo PA-C 6545 [facility] 450 [place] [address] Assigned Musculoskeletal Provider 04/26/21 10/15/22 [facility] [address] [place] [address] Assigned MTM Pharmacist 12/05/21 03/26/22 [place] [address] [place] [address] Assigned PCP 01/23/22 05/14/22 [facility] [address] [place] [address] Assigned MTM Pharmacist 04/07/22 05/14/22 [place] [address] [place] [address] Assigned PCP 05/15/22 Kaitana Read MD [address] 200 [place] [address] Assigned Endocrinology Provider 06/19/22 [place] [address] [place] [address] Assigned Behavioral Health Provider 07/03/22 12/31/22 Deena Graza APRN CNP [address] [place] [place] [address] Assigned Pain Medication Provider 07/19/22 10/29/22 [place] [address] [place] [address] Nurse Practitioner Nurse Practitioner 10/18/22 Elham Stack, [facility] [address] [place] [address] Pharmacist Pharmacist 10/19/22 Emerita Potter, [facility] Clinic Accounting Intern Operations Vice President - Clinical 10/29/22 11/02/22 [place] [address] [place] [address] Assigned Pain Medication Provider 10/30/22 12/03/22 Michelle Guzman DPM, Podiatry/Foot and Ankle Surgery [address] [place] [address] Assigned Musculoskeletal Provider 10/16/22 04/08/23 [place] [address] [place] [address] Assigned Pain Medication Provider 12/04/22 04/01/23 [place] [address] [place] [address] Nurse Practitioner Nurse Practitioner 01/17/23 01/17/23 Aubrey Jones MD [address] [place] [address] Cardiovascular Disease 03/28/23 Blanquita Morales Production Drilling Machine Operator Diabetes Education 04/25/23 Aubrey Jones MD [address] [place] [address] Assigned Heart and Vascular Provider 05/07/23 documented as of this encounter
--- OUTSIDE RECORDS SUMMARY | 2023-08-03 10:16 | XMS_ITS | Encounter Summary ---
Author Name Unknown Organization [facility] Address [address] [place] [address]. [place] [address] Care Team Providers Care Supervisor Stripping Name Role Phone Len Adhikari MD Primary Care Provider Jovany Gonzalez MD Unavailable CrissyStaci jeong [employer] Unavailable [phone] Len Adhikari MD Unavailable Reanna Smith RD Unavailable Jamshid Granados MD Unavailable Katiana Read MD Unavailable [phone] Jovita Daly MD Unavailable +[phone] Alxeander López MD Unamarcelina lable Jese Doyle MD Unavailable [phone] Roshni Nascimento RN Unavailable Unavailable Johana Groves [facility] Unavailable +[phone] Kiet Swain MD Unavailable [phone] Winsome Pike APRN CAREER DEVELOPMENT CONSULTANT Unavailable +[phone] Tori Hines [facility] Unavailable Miranda Queen [facility] Unavailable Unavailable Winsome Pike APRN CAREER DEVELOPMENT CONSULTANT Unavailable Marisel Armando MD Unavailable Marisel Armando MD Unavailable Inderjit Ugalde MD Unavailable [phone] Wesley Barrett MD Unavailable +[phone] EllaCharles jimenez Michele GEIGER Unavailable +[phone] Miranda Queen [facility] Unavailable Unavailable Leeann Rinaldi MD Unavailable Miranda Queen [facility] Unavailable Unavailable Dyan Fuentes MD Primary Care Provider [phone] Dyan Fuentes MD Unavailable +[phone] Katiana Read MD Unavailable [phone] Meme Singleton PhD Unavailable +[phone] Deena Garza APRN CAREER DEVELOPMENT CONSULTANT Unavailable +[phone] Mary Del Cid NP Unavailable + [phone] Elham Stack [facility] Unavailable +[phone] Emerita Potter [facility] Unavailable +[phone] Mary Del Cid NP Unavailable + [phone] Michelle Guzman DPM, Podiatry /Foot and Ankle Surgery Unavailable Dyan Fuentes MD Unavailable [phone] Mary Del Cid NP Unavailable + [phone] Aubrey Jones MD Unavailable +[phone] Blanquita Morales Unavailable Unavailable Aubrey Jones MD Unavailable +[phone] Reason for Visit * Reason Onset Date Comments MyChart Communication 05/30/2020 Encounter Details Date Type Department Care Team (Late st Contact Info) Description 05/30/2020 [facility] [id number] [place] [phone] [place] [address] [place] [address] MyChart Communication Social History Tobacco Use Types [...] COVID-19? No / Unsure 06/02/2020 12:45 PM PHOTOGRAPHIC EQUIPMENT INSPECTOR documented as of this encounter Plan of Treatment Upcoming Encounters Date Type Department Care Team (Late st Contact Info) Description 08/18/2023 3:00 PM PHOTOGRAPHIC EQUIPMENT INSPECTOR Office Visit [facility] [address] [facility] [address] [place] [address] Katiana Read MD [address] [place] [address] documented as of this encounter Visit Diagnoses Not on filedocumented in this encounter Additional Health Concerns Infection Onset Date Last Indicated Resolved Time Rule Out COVID-19 08/19/2020 08/19/2020 08/19/2020 4:40 PM PHOTOGRAPHIC EQUIPMENT INSPECTOR Rule Out C-difficile 02/27/2021 02/27/2021 021 6:10 [...] as of this encounter Care Teams Supervisor Stripping Relationship Specialty Start Date End Date Len Adhikari MD PCP - General Family Practice 11/08/16 05/09/22 [place] [address] [place] [address] PCP - General Family Medicine 05/18/22 Jovany Gonzalez MD [facility] 6600 [facility] 605 [place] [address] Orthopedics 02/15/17 Staci Woodward [employer] [facility] [address] [place] [address] Nurse Practitioner Nurse Practitioner Psych/Mental Health 05/10/17 [place] [address] [facility] [address] Assigned PCP 11/14/16 01/22/[address] [facility] [address] [place] [address] Pre Sales Technical Engineer Dietitian, Registered 07/25/19 [place] [address] [facility] [address] [place] [address] Assigned Musculoskeletal Provider 05/02/20 09/13/20 Katiana Read MD [address] [place] [address] Assigned Endocrinology Provider 05/02/20 08/01/21 Jovita Daly MD [address] [place] [address] Assigned Surgical Provider 05/02/20 10/04/20 Alexander López MD [address] [facility] 106 [place] [address] Assigned Sleep Provider 05/02/20 11/15/20 Jese Doyle MD 909 [facility] [place], [place] 85[address] Assigned Pulmonology Provider 05/02/20 04/11/21 Roshni Nascimento RN Personal Advocate & Liaison (PAL) Family Medicine 08/18/20 Johana Groves [facility] [address] [place] [address] Pharmacist Pharmacist 08/28/20 11/26/20 Kiet Swain MD [address] [facility] [address] [place], [place] [address] Referring Physician Psychiatry 09/19/20 Winsome Pike, HALL MANAGER CAREER DEVELOPMENT CONSULTANT [address] [place] [address] Nurse Practitioner Psychiatry 09/19/20 Tori Hines [facility] 2450 [place], [place] 191184 Photo Equipment Technician Photo Equipment Technician - Clinical 09/19/20 Miranda Queen, [facility] [address] [place] [address] Pharmacist Pharmacist 11/12/20 Winsome Pike APRN CAREER DEVELOPMENT CONSULTANT [address] [place] [address] 347274 Assigned Behavioral Health Provider 01/04/21 07/02/22 Mariesl Armando MD [address] [place] [address] 112325 Gastroenterology 02/05/21 Marisel Armando MD [address] [place] [address] 341105 Assigned Gastroenterology Provider 03/08/21 12/24/22 Inderjit Ugalde MD [address] [facility] 300 [place], [place] [address] Assigned Surgical Provider 02/15/21 08/20/22 Wesley Barrett MD 420 [facility] 96 [place], [place] [address] Assigned Neuroscience Provider 05/10/21 Charles Jaramillo PA-C [address] 349605 Assigned Musculoskeletal Provider 04/26/21 10/15/22 [facility] [address] [place] [address] Assigned MTM Pharmacist 12/05/21 03/26/22 [place] [address] [place] [address] Assigned PCP 01/23/22 05/14/22 Miranda Queen [facility] [address] [place] [address] Assigned MTM Pharmacist 04/07/22 05/14/22 [place] [address] [place] [address] Assigned PCP 05/15/22 Katiana Read MD [address] [place] [address] Assigned Endocrinology Provider 06/19/22 Meme Singleton, PhD [address] [place] [address] Assigned Behavioral Health Provider 07/03/22 12/31/22 Deena Garza APRN CAREER DEVELOPMENT CONSULTANT [address] [place] [address] Assigned Pain Medication Provider 07/19/22 10/29/22 Mary Del Cid, RAFAEL [address] [place] [address] Nurse Practitioner Nurse Practitioner 10/18/22 Elham Stack, [facility] 3033 [place] [address] Pharmacist Pharmacist 10/19/22 Emerita Potter, [facility] Clinic Terminal Gauger Supervisor Photo Equipment Technician - Clinical 10/29/22 11/02/22 Mary Del Cid, RAFAEL [address] [place] [address] Assigned Pain Medication Provider 10/30/22 12/03/22 Michelle Guzman, ALDOM, Podiatry/Foot and Ankle Surgery [address] [place] [address] Assigned Musculoskeletal Provider 10/16/22 04/08/23 [place] [address] [place] [address] Assigned Pain Medication Provider 12/04/22 04/01/23 [place] [address] [place] [address] Nurse Practitioner Nurse Practitioner 01/17/23 01/17/23 Aubrey Jones MD [address] [place] [address] Cardiovascular Disease 03/28/23 Blanquita Morales Pre Sales Technical Engineer Diabetes Education 04/25/23 Aubrey Joens MD [address] [place] [address] Assigned Heart and Vascular Provider 05/07/23 documented as of this encounter
--- OUTSIDE RECORDS SUMMARY | 2023-08-03 10:16 | XMS_ITS | Encounter Summary ---
Author Name Unknown Organization [place] Address [address] [place] [address]. [place] [address] Care Team Providers Care Spiritual Minister Name Role Phone Len Adhikari MD Primary Care Provider Jovany Gonzalez MD Unavailable CrissyStaci jeong [employer] Unavailable [phone] Len Adhikari MD Unavailable Reanna Smith [address] Unavailable Jamshid Granados MD Unavailable Katiana Read MD Unavailable [phone] Jovita Daly MD Unavailable +[phone] Alexander López MD Unamarcelina lable Jese Doyle MD Unavailable [phone] Roshni Nascimento RN Unavailable Unavailable Johana Groves [facility] Unavailable Kiet Swain MD Unavailable [phone] Winsome Pike APRN SALES OPERATIONS SPECIALIST Unavailable [phone] Tori Hines [facility] Unavailable Miranda Queen [facility] Unavailable Unavailable Winsome Pike APRN SALES OPERATIONS SPECIALIST Unavailable Marisel Armando MD Unavailable Marisel Armando MD Unavailable Inderjit Ugalde MD Unavailable [phone] Wesley Barrett MD Unavailable +[phone] EllaCharles Michele GEIGER Unavailable +[phone] Miranda Queen [facility] Unavailable Unavailable Leeann Rinaldi MD Unavailable Miranda Queen [facility] Unavailable Unavailable Dyan Fuentes MD Primary Care Provider [phone] Dyan Fuentes MD Unavailable +[phone] Katiana Read MD Unavailable [phone] Meme Singleton PhD Unavailable [phone] Deena Garza APRN SALES OPERATIONS SPECIALIST Unavailable [phone] Mary Del Cid NP Unavailable + [phone] Elham Stack [facility] Unavailable [phone] Emerita Potter [facility] Unavailable [phone] Mary Del Cid NP Unavailable + [phone] Michelle Guzman DPM, Podiatry /Foot and Ankle Surgery Unavailable Dyan Fuentes MD Unavailable [phone] Mary Del Cid NP Unavailable + [phone] Aubrey Jones MD Unavailable [phone] Blanquita Morales Unavailable Unavailable Aubrey Jones MD Unavailable [phone] Encounter Details Date Type Department Care Team (Late st Contact Info) Description 05/06/2020 [facility] [address] [address] Renetta Dsouza Social History Tobacco Use Types Packs/Day Years [...] or suspected to have Coronavirus / COVID-19? Yes 04/25/2020 12:33 PM CDT documented as of this encounter Plan of Treatment Upcoming Encounters Date Type Department Care Team (Late st Contact Info) Description 08/18/2023 3:00 PM JAVA XML DEVELOPER Office Visit [facility] [address] [facility] [address] [place] [address] Katiana Read MD [address] [place] [address] documented as of this encounter Visit Diagnoses Not on filedocumented in this encounter Additional Health Concerns Infection Onset Date Last Indicated Resolved Time Rule Out COVID-19 08/19/2020 08/19/2020 08/19/2020 4:40 PM JAVA XML DEVELOPER Rule Out C-difficile 02/27/2021 02/27/2021 021 [...] documented as of this encounter Care Teams Spiritual Minister Relationship Specialty Start Date End Date Len Adhikari MD PCP - General Family Practice 11/08/16 05/09/22 [place] [address] [place] [address] PCP - General Family Medicine 05/18/22 Jovany Gonzalez MD [facility] 6600 [facility] 605 [place], [place] [address] Orthopedics 02/15/17 Staci Woodward NP [facility] [address] [place], [place] [address] Nurse Practitioner Nurse Practitioner Psych/Mental Health 05/10/17 [place] [address] [place] [address] Assigned PCP 11/14/16 01/22/[address] [facility] [address] [place] [address] Arabic Translator Dietitian, Registered 07/25/19 [place] [address] [facility] 300 [place], [place] [address] Assigned Musculoskeletal Provider 05/02/20 09/13/20 Katiana Read MD [address] [facility] 200 [place], [place] [address] Assigned Endocrinology Provider 05/02/20 08/01/21 Jovita Daly MD [address] [place], [place] 5[address] Assigned Surgical Provider 05/02/20 10/04/20 Alexander López MD [address] [facility] 106 [place], [place] 68[address] Assigned Sleep Provider 05/02/20 11/15/20 Jese Doyle MD 9[address] [place] [address] Assigned Pulmonology Provider 05/02/20 04/11/21 Roshni Nascimento, RN Personal Advocate & Liaison (PAL) Family Medicine 08/18/20 Johana Groves, [facility] [address] [facility] [address] [place], [place] [address] Pharmacist Pharmacist 08/28/20 11/26/20 Kiet Swain MD [address] [facility] [address] [place], [place] [address] Referring Physician Psychiatry 09/19/20 Winsome Pike APRN SALES OPERATIONS SPECIALIST [address] [place] [address] 372114 Nurse Practitioner Psychiatry 09/19/20 Tori Hines, [facility] 2450 [place] [address] Barrel Bung Remover And Dumper Barrel Bung Remover And Dumper - Clinical 09/19/20 Miranda Queen [facility] [address] [place] [address] Pharmacist Pharmacist 11/12/20 Winsome Pike APRN SALES OPERATIONS SPECIALIST [address] [place] [address] 929274 Assigned Behavioral Health Provider 01/04/21 07/02/22 Marisel Armando MD [address] [place] [address] [id number] Gastroenterology 02/05/21 Marisel Armando MD [address] [place] [address] 633535 Assigned Gastroenterology Provider 03/08/21 12/24/22 Inderjit Ugalde MD [address] [facility] 300 [place], [place] [address] Assigned Surgical Provider 02/15/21 08/20/22 Wesley Barrett MD 420 [facility] 96 [place], [place] [address] Assigned Neuroscience Provider 05/10/21 Charles Jaramillo PA-C [address] [facility] [address] 119[address] Assigned Musculoskeletal Provider 04/26/21 10/15/22 Miranda Queen [facility] [address] [place] [address] Assigned MTM Pharmacist 12/05/21 03/26/22 [place] [address] [place] [address] Assigned PCP 01/23/22 05/14/22 Miranda Queen [facility] [address] [place] [address] Assigned MTM Pharmacist 04/07/22 05/14/22 [place] [address] [place] [address] Assigned PCP 05/15/22 Katiana Read MD [address] [place] [address] Assigned Endocrinology Provider 06/19/22 [place] [address] [place] [address] Assigned Behavioral Health Provider 07/03/22 12/31/22 Deena Garza APRN SALES OPERATIONS SPECIALIST [address] [place] [address] Assigned Pain Medication Provider 07/19/22 10/29/22 Mary Del Cid, RAFAEL [address] [place] [address] Nurse Practitioner Nurse Practitioner 10/18/22 Elham Stack, [facility] 3033 [place] [address] Pharmacist Pharmacist 10/19/22 Emerita Potter, [facility] Clinic Freight Car Repairer Barrel Bung Remover And Dumper - Clinical 10/29/22 11/02/22 [place] [address] [place] [address] Assigned Pain Medication Provider 10/30/22 12/03/22 Michelle Guzman, DPM, Podiatry/Foot and Ankle Surgery [address] [place] [address] Assigned Musculoskeletal Provider 10/16/22 04/08/23 [place] [address] [place] [address] Assigned Pain Medication Provider 12/04/22 04/01/23 [place] [address] [place] [address] Nurse Practitioner Nurse Practitioner 01/17/23 01/17/23 Aubrey Jones MD [address] [place] [address] Cardiovascular Disease 03/28/23 Blanquita Morales Arabic Translator Diabetes Education 04/25/23 Aubrey Jones MD [address] [place] [address] Assigned Heart and Vascular Provider 05/07/23 documented as of this encounter
--- OUTSIDE RECORDS SUMMARY | 2023-08-03 10:16 | XMS_ITS | Encounter Summary ---
Author Name Unknown Organization [facility] Address [address] [place] [address]. [place] [address] Care Team Providers Care Digital Tech Name Role Phone Len Adhikari MD Primary Care Provider Jovany Gonzalez MD Unavailable CrissyStaci jeong SENIOR IOS SOFTWARE ENGINEER Unavailable [phone] Len Adhikari MD Unavailable [phone] Unavailable [phone] Jamshid Granados MD Unavailable Katiana Read MD Unavailable [phone] Jovita Daly MD Unavailable [phone] Alexander López MD Unamarcelina lable Jese Doyle MD Unavailable [phone] Roshni Nascimento RN Unavailable Unavailable Johana Groves [facility] Unavailable Kiet Swain MD Unavailable [phone] Winsome Pike APRN HIM CLERK Unavailable +[phone] Tori Hines [facility] Unavailable Miranda Queen [facility] Unavailable Unavailable Winsome Pike APRN HIM CLERK Unavailable Marisel Armando MD Unavailable Marisel Armando MD Unavailable Inderjit Ugalde MD Unavailable [phone] Wesley Barrett MD Unavailable +[phone] EllaCharles jimenez Michele GEIGER Unavailable [phone] Miranda Queen [facility] Unavailable Unavailable Leeann Rinaldi MD Unavailable Miranda Queen [facility] Unavailable Unavailable Dyan Fuentes MD Primary Care Provider [phone] Dyan Fuentes MD Unavailable +[phone] Katiana Read MD Unavailable [phone] Meme Singleton PhD Unavailable [phone] Deena Garza APRN HIM CLERK Unavailable [phone] Mary Del Cid NP Unavailable + [phone] Elham Stack [facility] Unavailable [phone] Emerita Potter [facility] Unavailable [phone] Mary Dle Cid NP Unavailable + [phone] Michelle Guzman DPM, Podiatry /Foot and Ankle Surgery Unavailable Dyan Fuentes MD Unavailable [phone] Mary Del Cid NP Unavailable + [phone] Aubrey Jones MD Unavailable [phone] Blanquita Morales Unavailable Unavailable Aubrey Jones MD Unavailable [phone] Encounter Details Date Type Department Care Team (Late st Contact Info) Description 02/22/2020 [facility] [address] [address] Criselda Ma APRN HIM CLERK Social History Tobacco Use Types Packs/Day Years [...] have Coronavirus / COVID-19? No / Unsure 02/10/2020 10:01 PM CDT documented as of this encounter Plan of Treatment Upcoming Encounters Date Type Department Care Team ([facility] st Contact Info) Description 08/18/2023 3:00 PM SWITCHING OPERATOR Office Visit [facility] [address] [facility] [address] [place] [address] Katiana Read MD [address] [place] [address] 200 [place] [address] documented as of this encounter Visit Diagnoses Not on filedocumented in this encounter Additional Health Concerns Infection Onset Date Last Indicated Resolved Time Rule Out COVID-19 08/19/2020 08/19/2020 08/19/2020 4:40 PM SWITCHING OPERATOR Rule Out C-difficile 02/27/2021 02/27/2021 021 6:10 PM CDT Rule Out C-difficile 10/14/2022 10/15/2022 023 12:33 AM CDT Rule Out C-difficile 10/15/2022 10/15/2022 023 5:39 AM CDT C-difficile 10/15/2022 10/27/2022 11/26/2022 11:4 0 PM CDT Rule Out C-difficile 10/26/2022 10/27/202220/2 023 2:14 AM CDT Rule Out C-difficile 12/05/2022 12/05/2022 023 9:44 AM CDT Assessment Noted Time PHQ-9 Depression Total Score: 10 019 3:25 PM CDT documented as of this encounter Care Teams Digital Tech Relationship Specialty Start Date End Date Len Adhikari MD PCP - General Family Practice 11/08/16 05/09/22 [place] [address] [place] [address] PCP - General Family Medicine 05/18/22 Jovany Gonzalez MD [facility] [address] [facility] 605 [place], [place] [id number] Orthopedics 02/15/17 Staci Woodward NP [facility] [address] [place], [place] [address] Nurse Practitioner Nurse Practitioner Psych/Mental Health 05/10/17 [place] [address] [facility] [place] [address] Assigned PCP 11/14/16 01/22/[address] [facility] [address] [place], [place] 300[address] Interrelated Special Education Teacher Dietitian, Registered 07/25/19 [place] [address] [facility] 300 [place], [place] [address] Assigned Musculoskeletal Provider 05/02/20 09/13/20 Katiana Read MD [address] [facility] 200 [place], [place] 6[address] Assigned Endocrinology Provider 05/02/20 08/01/21 Jovita Daly MD [address] [place], [place] 565617 Assigned Surgical Provider 05/02/20 10/04/20 Alexander López MD [address] [facility] 106 [place], [place] [address] Assigned Sleep Provider 05/02/20 11/15/20 Jese Doyle MD 909 [place], [place] 59[address] Assigned Pulmonology Provider 05/02/20 04/11/21 Roshni Nascimento RN Personal Advocate & Liaison (PAL) Family Medicine 08/18/20 Johana Groves, [facility] [address] [facility] [address] [place], [place] [address] Pharmacist Pharmacist 08/28/20 11/26/20 Kiet Swain MD [address] [facility] [address] [place], [place] [address] Referring Physician Psychiatry 09/19/20 Winsome Pike APRN HIM CLERK [address] [place] [address] Nurse Practitioner Psychiatry 09/19/20 Tori Hines, [facility] 2450 [place], [place] 0[address] Animal Care Provider Animal Care Provider - Clinical 09/19/20 Miranda Queen [facility] [address] [place] [address] Pharmacist Pharmacist 11/12/20 Winsome Pike APRN HIM CLERK [address] [place] [address] 078254 Assigned Behavioral Health Provider 01/04/21 07/02/22 Marisel Armando MD [address] [place] [address] 749055 Gastroenterology 02/05/21 Marisel Armando MD [address] [place] [address] Assigned Gastroenterology Provider 03/08/21 12/24/22 Inderjit Ugalde MD [address] [facility] 300 [place] [address] Assigned Surgical Provider 02/15/21 08/20/22 Wesley Barrett MD 420 [facility] 96 [place], [place] [address] Assigned Neuroscience Provider 05/10/21 Charles Jaramillo PA-C [address] 983355 Assigned Musculoskeletal Provider 04/26/21 10/15/22 Miranda Queen [facility] [address] [place] [address] Assigned MTM Pharmacist 12/05/21 03/26/22 [place] [address] [place] [address] Assigned PCP 01/23/22 05/14/22 Miranda Queen [facility] [address] [place] [address] Assigned MTM Pharmacist 04/07/22 05/14/22 [place] [address] [place] [address] Assigned PCP 05/15/22 Katiana Read MD [address] 912310 Assigned Endocrinology Provider 06/19/22 Meme Sing[place] PhD [address] [place] 8[address]267 Assigned Behavioral Health Provider 07/03/22 12/31/22 Deena Garza APRN HIM CLERK [address] [place] [address] Assigned Pain Medication Provider 07/19/22 10/29/22 Mary Del Cid, RAFAEL [address] [place] [address] Nurse Practitioner Nurse Practitioner 10/18/22 Elham Stack, [facility] [address] [place] [address] Pharmacist Pharmacist 10/19/22 Emerita Potter, [facility] Clinic Manager Document Animal Care Provider - Clinical 10/29/22 11/02/22 [place] [address] [place] [address] Assigned Pain Medication Provider 10/30/22 12/03/22 Michelle Guzman, DPM, Podiatry/Foot and Ankle Surgery [address] [place] [address] Assigned Musculoskeletal Provider 10/16/22 04/08/23 [place] [address] [place] [address] Assigned Pain Medication Provider 12/04/22 04/01/23 [place] [address] [place] [address] Nurse Practitioner Nurse Practitioner 01/17/23 01/17/23 Aubrey Jones MD [address] [place] [address] Cardiovascular Disease 03/28/23 Blanquita Morales Interrelated Special Education Teacher Diabetes Education 04/25/23 Aubrey Jones MD [address] [place] [address] Assigned Heart and Vascular Provider 05/07/23 documented as of this encounter
--- OUTSIDE RECORDS SUMMARY | 2023-08-03 10:16 | XMS_ITS | Encounter Summary ---
Author Name Unknown Organization [facility] Address [address] [place] [address]. [place] [address] Care Team Providers Care Nutrition Assistant Name Role Phone Len Adhikari MD Primary Care Provider Jovany Gonzalez MD Unavailable CrissyStaci jeong [facility] Unavailable [phone] Len Adhikari MD Unavailable Reanna Smith RD Unavailable Jamshid Granados MD Unavailable +[phone] Katiana Read MD Unavailable +[phone] Jovita Daly MD Unavailable +[phone] Alexander López MD Unamarcelina lable Jese Doyle MD Unavailable +[phone] Roshni Nascimento RN Unavailable Unavailable Johana Groves [facility] Unavailable [phone] Kiet Swain MD Unavailable [phone] Winsome Pike APRN BOTTLE HOUSE PUMPER Unavailable +[phone] Tori Hines [facility] Unavailable Miranda Queen [facility] Unavailable Unavailable Winsome Pike APRN BOTTLE HOUSE PUMPER Unavailable Marisel Armando MD Unavailable Marisel Armando MD Unavailable Inderjit Ugalde MD Unavailable [phone] Wesley Barrett MD Unavailable +[phone] EllaCharles Michele GEIGER Unavailable +[phone] Miranda Queen [facility] Unavailable Unavailable Leeann Rinaldi MD Unavailable Miranda Queen [facility] Unavailable Unavailable Dyan Fuentes MD Primary Care Provider [phone] Dyan Fuentes MD Unavailable [phone] Katiana Read MD Unavailable [phone] Meme Singleton PhD Unavailable +[phone] Deena Garza APRN BOTTLE HOUSE PUMPER Unavailable +[phone] Mary Del Cid NP Unavailable + [phone] Elham Stack [facility] Unavailable +[phone] Emerita Potter [facility] Unavailable [phone] Mary Del Cid NP Unavailable + [phone] Michelle Guzman DPM, Podiatry /Foot and Ankle Surgery Unavailable Dyan Fuentes MD Unavailable [phone] Mary Del Cid NP Unavailable + [phone] Aubrey Jones MD Unavailable +[phone] Blanquita Morales Unavailable Unavailable Aubrey Jones MD Unavailable +[phone] Encounter Details Date Type Department Care Team (Late st Contact Info) Description 04/14/2020 [facility] [address] [address] Renetta Dsouza Social History Tobacco [...] st Contact Info) Description 08/18/2023 3:00 PM FINANCE LEAD Office Visit [facility] [address] [facility] [address] [place] [address] Katiana Read MD [address] [address] [place], [place] [address] documented as of this encounter Visit Diagnoses Not on filedocumented in this encounter Additional Health Concerns Infection Onset Date Last Indicated Resolved Time Rule Out COVID-19 08/19/2020 08/19/2020 08/19/2020 4:40 PM FINANCE LEAD Rule Out C-difficile 02/27/2021 02/27/2021 021 6:10 [...] as of this encounter Care Teams Nutrition Assistant Relationship Specialty Start Date End Date Len Adhikari MD PCP - General Family Practice 11/08/16 05/09/22 [place] [address] [place] [address] PCP - General Family Medicine 05/18/22 Jovany Gonzalez MD [facility] [address] [facility] 605 [place], [place] [address] Orthopedics 02/15/17 Staci Woodward NP [place] [facility] [address] [place], [place] [address] Nurse Practitioner Nurse Practitioner Psych/Mental Health 05/10/17 [place] [address] [place] [address] Assigned PCP 11/14/16 01/22/[address] [place] [facility] [address] [place] [address] Forest Economist Dietitian, Registered 07/25/19 [place] [address] [facility] [address] [place], [place] [address] Assigned Musculoskeletal Provider 05/02/20 09/13/20 Katiana Read MD [address] [place] [address] 200 [place] [address] Assigned Endocrinology Provider 05/02/20 08/01/21 Jovita Daly MD [address] [place] [address] Assigned Surgical Provider 05/02/20 10/04/20 Alexander López MD [address] 106 [place], [place] [address] Assigned Sleep Provider 05/02/20 11/15/20 Jese Doyle MD [address] [place], [place] [address] Assigned Pulmonology Provider 05/02/20 04/11/21 Roshni Nascimento, RN Personal Advocate & Liaison (PAL) Family Medicine 08/18/20 [facility] [address] [facility] [address] [place], [place] [id number] Pharmacist Pharmacist 08/28/20 11/26/20 Kiet Swain MD Critical access hospital0 [facility] [place], [place] [address] Referring Physician Psychiatry 09/19/20 Winsome Pike, VIDHI BOTTLE HOUSE PUMPER [address] [place] [address] Nurse Practitioner Psychiatry 09/19/20 Tori Hines, [facility] [address]50 [place] [address] Brick Catcher Brick Catcher - Clinical 09/19/20 Miranda Queen [facility] [address] [place] [address] Pharmacist Pharmacist 11/12/20 Winsome Pike APRN BOTTLE HOUSE PUMPER [address] [address] Assigned Behavioral Health Provider 01/04/21 07/02/22 Marisel Armando MD [address] [place] [address] Gastroenterology 02/05/21 Marisel Armando MD [address] [place] [address] Assigned Gastroenterology Provider 03/08/21 12/24/22 Inderjit Ugalde MD [address] [facility] 300 [place] [address] Assigned Surgical Provider 02/15/21 08/20/22 Wesley Barrett MD 420 [facility] 96 [place] [address] Assigned Neuroscience Provider 05/10/21 Charles Jaraimllo PA-C [address] [facility] [place] [address] [address] Assigned Musculoskeletal Provider 04/26/21 10/15/22 Miranda Queen [facility] [address] [place] [address] Assigned MTM Pharmacist 12/05/21 03/26/22 [place] [address] [place] [address] Assigned PCP 01/23/22 05/14/22 Miranda Queen [facility] [address] [place] [address] Assigned MTM Pharmacist 04/07/22 05/14/22 [place] [address] [place] [address] Assigned PCP 05/15/22 Katiana Read MD [address] [place] [address] Assigned Endocrinology Provider 06/19/22 Meme Singleton, PhD [address] [place] [address] Assigned Behavioral Health Provider 07/03/22 12/31/22 Deena Garza, POWDER COATER BOTTLE HOUSE PUMPER [address] [place] [address] Assigned Pain Medication Provider 07/19/22 10/29/22 Mary Del Cid, RAFAEL [address] [place] [address] Nurse Practitioner Nurse Practitioner 10/18/22 Elham Stack, [facility] 30[address] [place] [address] Pharmacist Pharmacist 10/19/22 Emerita Potter, [facility] Clinic Splitting Machine Feeder Brick Catcher - Clinical 10/29/22 11/02/22 [place] [address] [place] [place] [address] Assigned Pain Medication Provider 10/30/22 12/03/22 Michelle Guzman DPM, Podiatry/Foot and Ankle Surgery [address] [place] [place] [address] Assigned Musculoskeletal Provider 10/16/22 04/08/23 [place] [address] [place] [address] Assigned Pain Medication Provider 12/04/22 04/01/23 [place] [address] [place] [address] Nurse Practitioner Nurse Practitioner 01/17/23 01/17/23 Aubrey Jones MD [address] [place] [address] Cardiovascular Disease 03/28/23 Blanquita Morales Forest Economist Diabetes Education 04/25/23 Aubrey Jones MD [address] [place] [address] Assigned Heart and Vascular Provider 05/07/23 documented as of this encounter
--- OUTSIDE RECORDS SUMMARY | 2023-08-03 10:16 | XMS_ITS | Encounter Summary ---
Author Name Unknown Organization [facility] Address [address] [place] [address]. [place] [address] Care Team Providers Care Internet Sales Manager Name Role Phone Len Adhikari MD Primary Care Provider Jovany Gonzalez MD Unavailable CrissyStaci jeong LEGAL RESEARCH ANALYST Unavailable [phone] Len Adhikari MD Unavailable [phone] Unavailable [phone] Jamshid Granados MD Unavailable Katiana Read MD Unavailable [phone] Jovita Daly MD Unavailable [phone] Alexander López MD Unamarcelina lable Jese Doyle MD Unavailable [phone] Roshni Nascimento RN Unavailable Unavailable Johana Groves [facility] Unavailable Kiet Swain MD Unavailable [phone] Winsome Pike APRN SUPERVISOR ORCHARD Unavailable [phone] Tori Hines [facility] Unavailable Miranda Queen [facility] Unavailable Unavailable Winsome Pike APRN SUPERVISOR ORCHARD Unavailable Marisel Armando MD Unavailable Marisel Armando MD Unavailable Inderjit Ugalde MD Unavailable [phone] Wesley Barrett MD Unavailable +[phone] EllaCharles jimenez Michele GEIGER Unavailable +[phone] Miranda Queen [facility] Unavailable Unavailable Leeann Rinaldi MD Unavailable Miranda Queen [facility] Unavailable Unavailable Dyan Fuentes MD Primary Care Provider [phone] Dyan Fuentes MD Unavailable [phone] Katiana Read MD Unavailable [phone] Meme Singleton PhD Unavailable [phone] Deena Garza APRN SUPERVISOR ORCHARD Unavailable +[phone] Mary Del Cid NP Unavailable + [phone] Elham Stack [facility] Unavailable [phone] Emerita Potter [facility] Unavailable [phone] Mary Del Cid NP Unavailable + [phone] Michelle Guzman DPM, Podiatry /Foot and Ankle Surgery Unavailable Dyan Fuentes MD Unavailable [phone] Mary Del Cid NP Unavailable + [phone] Aubrey Jones MD Unavailable [phone] Blanquita Morales Unavailable Unavailable Aubrey Jones MD Unavailable [phone] Encounter Details Date Type Department Care Team (Late st Contact Info) Description 05/14/2020 [facility] [address] [address] [place] [address] [place] [address] Social History Tobacco Use Types Packs/Day Years [...] st Contact Info) Description 08/18/2023 3:00 PM LIP CUTTER Office Visit [facility] [address] [facility] [address] [place] [address] Katiana Read MD [address] 200 [place] [address] documented as of this encounter Visit Diagnoses Not on filedocumented in this encounter Additional Health Concerns Infection Onset Date Last Indicated Resolved Time Rule Out COVID-19 08/19/2020 08/19/2020 08/19/2020 4:40 PM LIP CUTTER Rule Out C-difficile 02/27/2021 02/27/2021 021 6:10 [...] documented as of this encounter Care Teams Internet Sales Manager Relationship Specialty Start Date End Date Len Adhikari MD PCP - General Family Practice 11/08/16 05/09/22 [place] [address] [place] [address] PCP - General Family Medicine 05/18/22 Jovany Gonzalez MD [facility] [address] [facility] 605 [place] [address] Orthopedics 02/15/17 Staci Woodward LEGAL RESEARCH ANALYST [place] [address] [place] [address] Nurse Practitioner Nurse Practitioner Psych/Mental Health 05/10/17 [place] [address] [facility] [place] [address] Assigned PCP 11/14/16 01/22/[address] [place] [address] [place] [address] Sales Effectiveness Manager Dietitian, Registered 07/25/19 [place] [address] [facility] [address] [place], [place] [address] Assigned Musculoskeletal Provider 05/02/20 09/13/20 Katiana Read MD [address] [place] [address] Assigned Endocrinology Provider 05/02/20 08/01/21 Jovita Daly MD [address] [place], [place] [address] Assigned Surgical Provider 05/02/20 10/04/20 Alexander López MD [address] [place] [place] [address] Assigned Sleep Provider 05/02/20 11/15/20 Jese Doyle MD 909 [place] [address] Assigned Pulmonology Provider 05/02/20 04/11/21 Roshni Nascimento RN Personal Advocate & Liaison (PAL) Family Medicine 08/18/20 [facility] [facility] [address] [place], [place] [id number] Pharmacist Pharmacist 08/28/20 11/26/20 Kiet Swain MD [address] [facility] [place], [place] [id number] Referring Physician Psychiatry 09/19/20 Winsome Pike APRN SUPERVISOR ORCHARD [address] [address] Nurse Practitioner Psychiatry 09/19/20 Tori Hines [facility] 2450 [place], [place] [address] Note Keeper Note Keeper - Clinical 09/19/20 Miranda Queen [facility] [address] [place] [address] Pharmacist Pharmacist 11/12/20 Winsome Pike APRN SUPERVISOR ORCHARD [facility] [id number] Assigned Behavioral Health Provider 01/04/21 07/02/22 Marisel Armando MD [address] [place] [id number] Gastroenterology 02/05/21 Marisel Armando MD [address]09 [place], [place] [address] Assigned Gastroenterology Provider 03/08/21 12/24/22 Inderjit Ugalde MD [address] [facility] 300 [place], [place] [address] Assigned Surgical Provider 02/15/21 08/20/22 Wesley Barrett MD 420 [facility] 96 [place], [place] [address] Assigned Neuroscience Provider 05/10/21 Charles Jaramillo PA-C [address] [address] Assigned Musculoskeletal Provider 04/26/21 10/15/22 [facility] [address] [place] [address] Assigned MTM Pharmacist 12/05/21 03/26/22 [place] [address] [place] [address] Assigned PCP 01/23/22 05/14/22 [facility] [address] [place] [address] Assigned MTM Pharmacist 04/07/22 05/14/22 [place] [address] [place] [address] Assigned PCP 05/15/22 Katiana Read MD [address] [place] [address] Assigned Endocrinology Provider 06/19/22 [place] [address] [place] [address] Assigned Behavioral Health Provider 07/03/22 12/31/22 Deena Garza APRN SUPERVISOR ORCHARD [address] [place] [address] Assigned Pain Medication Provider 07/19/22 10/29/22 Mary Del Cid, RAFAEL [address] [place] [address] Nurse Practitioner Nurse Practitioner 10/18/22 Elham Stack, [facility] [address] [place] [address] Pharmacist Pharmacist 10/19/22 Abbey Emerita M, [facility] Clinic Dentist Note Keeper - Clinical 10/29/22 11/02/22 [place] [address] [address] [place] [address] Assigned Pain Medication Provider 10/30/22 12/03/22 Michelle Guzman, ERIC, Podiatry/Foot and Ankle Surgery [address] [place] [address] Assigned Musculoskeletal Provider 10/16/22 04/08/23 [place] [address] [place] [address] Assigned Pain Medication Provider 12/04/22 04/01/23 [place] [address] [place] [address] Nurse Practitioner Nurse Practitioner 01/17/23 01/17/23 Aubrey Jones MD [address] [place] [address] Cardiovascular Disease 03/28/23 Blanquita Morales Sales Effectiveness Manager Diabetes Education 04/25/23 Aubrey Jones MD [address] [place] [address] Assigned Heart and Vascular Provider 05/07/23 documented as of this encounter
--- OUTSIDE RECORDS SUMMARY | 2023-08-03 10:16 | XMS_ITS | Encounter Summary ---
Author Name Unknown Organization [facility] Address [address] [place] [address]. [place] [address] Care Team Providers Care Glove Wrapper Name Role Phone Len Adhikari MD Primary Care Provider Jovany Gonzalez MD Unavailable CrissyStaci jeong COOK LARDER Unavailable [phone] Len Adhikari MD Unavailable [phone] Unavailable Jamshid Granados MD Unavailable Katiana Read MD Unavailable [phone] Jovita Daly MD Unavailable [phone] Alexander López MD Unamarcelina lable Jese Doyle MD Unavailable [phone] Roshni Nascimento RN Unavailable Unavailable Johana Groves [facility] Unavailable [phone] Kiet Swain MD Unavailable [phone] Winsome Pike APRN BARKER PEELER Unavailable [phone] Tori Hines [facility] Unavailable Miranda Queen [facility] Unavailable Unavailable Winsome Pike APRN BARKER PEELER Unavailable Marisel Armando MD Unavailable Marisel Armando MD Unavailable Inderjit Ugalde MD Unavailable [phone] Wesley Barrett MD Unavailable [phone] Charles Jaramillo PA-C Unavailable [phone] Miranda Queen [facility] Unavailable Unavailable Leeann Rinaldi MD Unavailable Miranda Queen [facility] Unavailable Unavailable Dyan Fuentes MD Primary Care Provider [phone] Dyan Fuentes MD Unavailable [phone] Katiana Read MD Unavailable [phone] Meme Singleton PhD Unavailable [phone] Deena Garza APRN BARKER PEELER Unavailable [phone] Mary Del Cid NP Unavailable + [phone] Elham Stack [facility] Unavailable [phone] Emerita Potter [facility] Unavailable [phone] Mary Del Cid NP Unavailable + [phone] Michelle Guzman DPM, Podiatry /Foot and Ankle Surgery Unavailable Dyan Fuentes MD Unavailable [phone] Mary Del Cid NP Unavailable + [phone] Aubrey Jones MD Unavailable [phone] Blanquita Morales Unavailable Unavailable Aubrey Jones MD Unavailable [phone] Reason for Referral * Mental Health Outpatient (Routine) - Closed Specialty Diagnoses / Procedures Referred By Contlennox t Referred To Contact Diagnoses Anxiety Personality disorder (H) Jacque Pagan PA-C [address] [place] [address] Referral ID Status Reason Start Date Expiration Date Visits Re quested Visits Authorized [id number] Closed 04/30/2020 04/30/2021 1 1 Question Answer Child/Adolescent or Adult Adult Which Service? Psychiatry Psychiatry and Psychotherapy Psychiatry Adult Psychiatry Locations [facility]: Collaborative Care Psychiatry Service/Bridge to Long-Term Psychiatry as indicated ( ) Patient mental health evaluated within the past 30 days? Yes CCPS Reason for Referral: Chronic Mental Health without improvement Referring provider agrees to medication management and future refills upon completion of evaluation and stablization? Yes Scheduling Note: We will contact you to schedule the appointment or please call with any questions Comments All scheduling is subject to the client's specific insurance plan & benefits, provider/location availability, and provider clinical specialities. Please arrive 15 minutes early for your first appointment and bring your completed paperwork. Please be aware that coverage of these services is subject to the terms and limitations of your health insurance plan. Call member services at your health plan with any benefit or coverage questions. Reason for Visit * Reason Onset Date Comments Referral 04/30/2020 Encounter Details Date Type Department Care Team (Late st Contact Info) Description 04/30/[address] [facility] [address] [place] [address] [place] [address] [place] [address] Referral Social History Tobacco Use Types Packs/Day [...] encounter Miscellaneous Notes * Telephone Encounter - Rosnhi Nascimento RN - 05/05/2020 7:57 AM CDT LM again for call back and sent my chart Roshni Nascimento RN * Telephone Encounter - Roshin Nascimento RN - 05/01/2020 8:21 AM CDT LM with pt reported she had appt already scheduled on 06/01 ? We did place referral yesterday will have pt call back to clarify- She is also due for wellness visit Roshni Nascimento RN * Telephone Encounter - Edwardo Rosas - 04/30/2020 3:22 PM CDT Order/Referral Request: Who is requesting: Kaila Hernandez Orders being requested: Psychiatry Refferal Reason service is needed/diagnosis: to schedule an appt When are orders needed by: RAFAELA Has this been discussed with Provider: Yes Does patient have a preference on a Group/Provider/Facility? unknown Does patient have an appointment scheduled: No Where to send Orders: Under Trimmer Okay to leave detailed message? Yes at Home number on file [phone] (home) Please call PT when Referral is ready Routing documented in this encounter Plan of Treatment Upcoming Encounters Date Type Department Care Team (Late st Contact Info) Description 08/18/2023 3:00 PM LEAD RECREATION ASSISTANT Office Visit [facility] [address] [place] [address] Katiana Read MD [address] [facility] [address] [place] [address] Scheduled Referrals Name Type Priority Associated Diagnoses Orde r Schedule MENTAL HEALTH REFERRAL - Adult; Psychiatry; Psychiatry; FM[facility]: Collaborative Care Psychiatry Service/Bridge to Long-Term Psychiatry as indicated ( ); Yes; Chronic Mental Health without improvement; Yes; We will contact you to schedule ... Referral Routine Anxiety Personality disorder (H) Ordered: 04/30/2020 documented as of this encounter Visit Diagnoses Diagnosis Anxiety- Primary Anxiety state, unspecified Personality disorder (H) Unspecified personality disorder documented in this encounter Additional Health Concerns Infection Onset Date Last Indicated Resolved Time Rule Out COVID-19 08/19/2020 08/19/2020 08/19/2020 4:40 PM LEAD RECREATION ASSISTANT Rule Out C-difficile 02/27/2021 02/27/2021 021 6:10 [...] documented as of this encounter Care Teams Glove Wrapper Relationship Specialty Start Date End Date Len Adhikari MD PCP - General Family Practice 11/08/16 05/09/22 [place] [address] [place] [address] PCP - General Family Medicine 05/18/22 Jovany Gonzalez MD [facility] [address] [facility] [address] [place], [place] [address] Orthopedics 02/15/17 Staci Woodward, COOK LARDER [facility] [address] [place] [address] Nurse Practitioner Nurse Practitioner Psych/Mental Health 05/10/17 [place] [address] [facility] [address] [place], [place] [id number] Assigned PCP 11/14/16 01/22/[address] [facility] [address] [place] [address] Cardiovascular Radiologic Technologist Dietitian, Registered 07/25/19 [place] [address] [facility] [address] [place] [address] Assigned Musculoskeletal Provider 05/02/20 09/13/20 Katiana Read MD [address] [place] [address] Assigned Endocrinology Provider 05/02/20 08/01/21 Jovita Daly MD [address] [place] [address] Assigned Surgical Provider 05/02/20 10/04/20 Alexander López MD [address] [place] [address] 106 [place], [place] [address] Assigned Sleep Provider 05/02/20 11/15/20 Jese Doyle MD [address] [place] [address] Assigned Pulmonology Provider 05/02/20 04/11/21 Roshni Nascimento, RN Personal Advocate & Liaison (PAL) Family Medicine 08/18/20 Johana Groves, [facility] [address] [place], [place] [id number] Pharmacist Pharmacist 08/28/20 11/26/20 Kiet Swain MD [address] [place], [place] [id number] [place], [place] [address] Referring Physician Psychiatry 09/19/20 Winsome Pike APRN BARKER PEELER [address] [place] [address] [id number] Nurse Practitioner Psychiatry 09/19/20 Tori Hines, [facility] [address] [place] [id number] [facility] 09/19/20 [facility] [address] [place] [address] Pharmacist Pharmacist 11/12/20 Winsome Pike APRN BARKER PEELER [address] [place] [id number] Assigned Behavioral Health Provider 01/04/21 07/02/22 Marisel Armando MD [address] [place] [address] 644655 Gastroenterology 02/05/21 Mraisel Armando MD [address] [place] [address] Assigned Gastroenterology Provider 03/08/21 12/24/22 Inderjit Ugalde MD [address] [facility] [place] [address] Assigned Surgical Provider 02/15/21 08/20/22 Wesley Barrett MD [address] [facility] [address] [place] [address] Assigned Neuroscience Provider 05/10/21 Charles Jaramillo PA-C [address] [address] Assigned Musculoskeletal Provider 04/26/21 10/15/22 Miranda Queen [facility] [address] [place] [address] Assigned MTM Pharmacist 12/05/21 03/26/22 [place] [address] [place] [address] Assigned PCP 01/23/22 05/14/22 Miranda Queen [facility] [address] [place] [address] Assigned MTM Pharmacist 04/07/22 05/14/22 [place] [address] [place] [address] Assigned PCP 05/15/22 Katiana Read MD [address] [facility] [address] [place] [address] Assigned Endocrinology Provider 06/19/22 [place] [address] [place] [address] Assigned Behavioral Health Provider 07/03/22 12/31/22 Deena Garza, PRESS WORKER HELPER BARKER PEELER [address] [place] [address] Assigned Pain Medication Provider 07/19/22 10/29/22 [place] [address] [place] [address] Nurse Practitioner Nurse Practitioner 10/18/22 Elham Stack, [facility] [address] [place], [place] [address] Pharmacist Pharmacist 10/19/22 Emerita Potter, [facility] Clinic Network Security Administrator [facility] - [facility] 10/29/22 11/02/22 [place] [address] [place] [address] Assigned Pain Medication Provider 10/30/22 12/03/22 Michelle Guzman DPM, Podiatry/Foot and Ankle Surgery [address] [facility] [place] [address] Assigned Musculoskeletal Provider 10/16/22 04/08/23 [place] [address] [place] [address] Assigned Pain Medication Provider 12/04/22 04/01/23 [place] [address] [address] [place] [address] Nurse Practitioner Nurse Practitioner 01/17/23 01/17/23 Aubrey Jones MD [address] [place] [address] Cardiovascular Disease 03/28/23 Blanquita Morales Cardiovascular Radiologic Technologist Diabetes Education 04/25/23 Aubrey Jones MD [address] [place] [address] Assigned Heart and Vascular Provider 05/07/23 documented as of this encounter
--- OUTSIDE RECORDS SUMMARY | 2023-08-03 10:16 | XMS_ITS | Encounter Summary ---
Author Name Unknown Organization [facility] Address [address] [place] [address]. [place] [address] Care Team Providers Care Vice President Commercial Bank Name Role Phone Len Adhikari MD Primary Care Provider Jovany Gonzalez MD Unavailable CrissyStaci jeong REFRIGERATION SYSTEMS INSTALLER Unavailable [phone] Len Adhikari MD Unavailable Reanna Smith [address] Unavailable Jamshid Granados MD Unavailable Katiana Read MD Unavailable [phone] Jovita Daly MD Unavailable [phone] Alexander López MD Unamarcelina lable Jese Doyle MD Unavailable [phone] Roshni Nascimento RN Unavailable Unavailable Johana Groves [facility] Unavailable Kiet Swain MD Unavailable [phone] Winsome Pike APRN PROJECT DEVELOPER Unavailable [phone] Tori Hines [facility] Unavailable Miranda Queen [facility] Unavailable Unavailable Winsome Pike APRN PROJECT DEVELOPER Unavailable Marisel Armando MD Unavailable Marisel Armando MD Unavailable Inderjit Ugalde MD Unavailable [phone] Wesley Barrett MD Unavailable [phone] EllaCharles jimenez Michele GEIGER Unavailable [phone] Miranda Queen [facility] Unavailable Unavailable Leeann Rinaldi MD Unavailable Miranda Queen [facility] Unavailable Unavailable Dyan Fuentes MD Primary Care Provider [phone] Dyan Fuentes MD Unavailable [phone] Katiana Read MD Unavailable [phone] Meme Singleton PhD Unavailable [phone] Deena Garza APRN PROJECT DEVELOPER Unavailable [phone] Mary Del Cid NP Unavailable + [phone] Elham Stack [facility] Unavailable Emerita Potter [facility] Unavailable [phone] Mary Del Cid NP Unavailable [phone] Michelle Guzman DPM, Podiatry /Foot and Ankle Surgery Unavailable Dyan Fuentes MD Unavailable [phone] Mary Del Cid NP Unavailable [phone] Aubrey Jones MD Unavailable [phone] Blanquita Morales Unavailable Unavailable Aubrey Jones MD Unavailable [phone] Reason for Visit * Reason Comments Medication Refill synthroid Encounter Details Date Type Department Care Team (Late st Contact Info) Description 02/27/2020 [facility] [address] [facility] [address] [place] [phone] Katiana Read MD [address] [place] [address] Medication Refill (synthroid) Social History Tobacco Use Types Packs/Day Years [...] Telephone Encounter - Katiana Read MD - 03/04/2020 4:40 PM CDT pt reports that she does not need refill at this time. * Telephone Encounter - Rachelle Benites CMA - 03/04/2020 3:24 PM CDT Patient wrote back: Zenobia, I don't need a refill at this time. Thank you. * Telephone Encounter - Rachelle Benites CMA - 03/04/2020 12:37 PM CDT Message sent via [employer]. PATRICK Chu [facility] * Telephone Encounter - Katinaa Read MD - 03/04/2020 11:31 AM CDT Any update? * Telephone Encounter - Katiana Read MD - 03/03/2020 5:01 PM CDT Based on last note: Continue ANIKET synthroid. Based on recent labs recommend to decrease dose of Synthroid to 350 mcg X 6 days a week and 262.5 mcg X 1 day a week (01/29/2020). Labs in 2-3 months Please make a lab appointment for blood work and follow up clinic appointment in 1 week after that to discuss results. TSH Date Value Ref Range Status 01/22/2020 0.13 (L) 0.40 - 4.00 mU/L Final Please confirm dose with pt. Please pend the orders with correct quantity, select pharmacy and then send for signature. Also associate with correct diagnosis. Thank you. Katiana Read MD * Telephone Encounter - Blanquita Anderson MA - 02/29/2020 11:53 AM CDT Left message for patient to call back. Blanquita Anderson CMA * Telephone Encounter - Katiana Read MD - 02/28/2020 4:08 PM CDT Please confirm dose with pt. Based on last note plan was to decrease dose of Synthroid to 350 mcg X 6 days a week and 262.5 mcg X 1 day a week (01/29/2020). Please pend the orders with correct quantity, select pharmacy and then send for signature. Also associate with correct diagnosis. TSH Date Value Ref Range Status 01/22/2020 0.13 (L) 0.40 - 4.00 mU/L Final Thank you. Katiana Read MD * Telephone Encounter - Marisel Thompson, RN - 02/28/2020 2:24 PM CDT Pending Prescriptions: Disp Refills SYNTHROID 175 MCG tablet [Pharmacy Med Nam*180 ta*0 Sig: TAKE 2 TABLETS (=350MCG) DAILY Routing refill request to provider for review/approval because: Labs out of range: TSH TSH Date Value Ref Range Status 01/22/2020 0.13 (L) 0.40 - 4.00 mU/L Final documented in this encounter Plan of Treatment Upcoming Encounters Date Type Department Care Team (Late st Contact Info) Description 08/18/2023 3:00 PM SUPERVISOR STRIPPING Office Visit [facility] [address] [facility] [address] [place] [address] Katiana Read MD [address] [place] [address] documented as of this encounter Visit Diagnoses Diagnosis Postablative hypothyroidism Other postablative hypothyroidism documented in this encounter Additional Health Concerns Infection Onset Date Last Indicated Resolved Time Rule Out COVID-19 08/19/2020 08/19/2020 08/19/2020 4:40 PM SUPERVISOR STRIPPING Rule Out C-difficile 02/27/2021 02/27/2021 021 6:10 PM CDT Rule Out C-difficile 10/14/2022 10/15/2022 023 12:33 AM CDT Rule Out C-difficile 10/15/2022 10/15/2022 023 5:39 AM CDT C-difficile 10/15/2022 10/27/2022 11/26/2022 11:4 0 PM CDT Rule Out C-difficile 10/26/2022 10/27/2022 023 2:14 AM CDT Rule Out C-difficile 12/05/2022 12/05/2022 023 9:44 AM CDT Assessment Noted Time PHQ-9 Depression Total Score: 10 01/01/2 019 3:25 PM CDT documented as of this encounter Care Teams Vice President Commercial Bank Relationship Specialty Start Date End Date Len Adhikari MD PCP - General Family Practice 11/08/16 05/09/22 [place] [address] [place] [address] PCP - General Family Medicine 05/18/22 Jovany Gonzalez MD [facility] [address] [facility] 605 [place] [address] Orthopedics 02/15/17 Staci Woodward NP [place] [address] [place] [address] Nurse Practitioner Nurse Practitioner Psych/Mental Health 05/10/17 [place] [address] [facility] [address] Assigned PCP 11/14/16 01/22/[address] [address] Barrel Turner Dietitian, Registered 07/25/19 [place] [address] [address] Assigned Musculoskeletal Provider 05/02/20 09/13/20 Katiana Read MD [address] [facility] 200 [place] [address] Assigned Endocrinology Provider 05/02/20 08/01/21 Jovita Daly MD [address] [place] [address] Assigned Surgical Provider 05/02/20 10/04/20 Alexander López MD [address] [facility] [address] [place], [place] [address] Assigned Sleep Provider 05/02/20 11/15/20 Jese Doyle MD [address] [place], [place] [address] Assigned Pulmonology Provider 05/02/20 04/11/21 Roshni Nascimento, RN Personal Advocate & Liaison (PAL) Family Medicine 08/18/20 Johana Groves, [facility] [address] [facility] [facility] [facility] [address] [place], [place] [phone] Pharmacist Pharmacist 08/28/20 11/26/20 Kiet Swain MD [address] [place] [address] [address] [place], [place] [address] Referring Physician Psychiatry 09/19/20 Winsome Pike, SUPERVISOR SINTERING PLANT PROJECT DEVELOPER [address] [place] [address] Nurse Practitioner Psychiatry 09/19/20 Tori Hines, [facility] [place], [place] [id number] Open Hearth Helper Open Hearth Helper - Clinical 09/19/20 Miranda Queen [facility] [address] [place] [address] Pharmacist Pharmacist 11/12/20 Winsome Pike APRN CNP [address] [address] Assigned Behavioral Health Provider 01/04/21 07/02/22 Marisel Armando MD [address] [place] [address] Gastroenterology 02/05/21 Marisel Armando MD [address] [place] [address] 183155 Assigned Gastroenterology Provider 03/08/21 12/24/22 Inderjit Ugalde MD [address] [facility] 300 [place] [address] Assigned Surgical Provider 02/15/21 08/20/22 Wesley Barrett MD [address] [place] [address] 96 [place] [address] Assigned Neuroscience Provider 05/10/21 Charles Jaramillo PA-C [address] [address] Assigned Musculoskeletal Provider 04/26/21 10/15/22 Miranda Queen [facility] [address] [place] [address] Assigned MTM Pharmacist 12/05/21 03/26/22 [place] [address] [place] [address] Assigned PCP 01/23/22 05/14/22 Miranda Queen [facility] [address] [place] [address] Assigned MTM Pharmacist 04/07/22 05/14/22 [place] [address] [place] [address] Assigned PCP 05/15/22 Katiana Read MD [address] [address] Assigned Endocrinology Provider 06/19/22 Meme [place] PhD [address] [place] 56[address]37 Assigned Behavioral Health Provider 07/03/22 12/31/22 Deena Garza APRN PROJECT DEVELOPER [address] [place] [address] Assigned Pain Medication Provider 07/19/22 10/29/22 Mary Del Cid, RAFAEL [address] [place] [address] Nurse Practitioner Nurse Practitioner 10/18/22 Elham Stack, [facility] [address] [place] [address] Pharmacist Pharmacist 10/19/22 Emerita Potter, [facility] Clinic Software Performance Engineer Open Hearth Helper - Clinical 10/29/22 11/02/22 Mary Del Cid, RA[place] [address] [place] [address] Assigned Pain Medication Provider 10/30/22 12/03/22 Michelle Guzman, DPM, Podiatry/Foot and Ankle Surgery [address] [address] Assigned Musculoskeletal Provider 10/16/22 04/08/23 [place] [address] [place] [address] Assigned Pain Medication Provider 12/04/22 04/01/23 [place] [address] [address] [place] [address] Nurse Practitioner Nurse Practitioner 01/17/23 01/17/23 Aubrey Jones MD [address] [place] [address] Cardiovascular Disease 03/28/23 Blanquita Morales Barrel Turner Diabetes Education 04/25/23 Aubrey Jones MD [address] [place] [address] Assigned Heart and Vascular Provider 05/07/23 documented as of this encounter
--- OUTSIDE RECORDS SUMMARY | 2023-08-03 10:16 | XMS_ITS | Encounter Summary ---
Author Name Unknown Organization [place] Address [address] [place] [address]. [place] [address] Care Team Providers Care Tamping Machine Operator Road Forms Name Role Phone Len Adhikrai MD Primary Care Provider Jovany Gonzalez MD Unavailable CrissyStaci jeong CEMENT MIXER DRIVER Unavailable Len Adhikari MD Unavailable [phone] Unavailable Jamshid Granados MD Unavailable Katiana Read MD Unavailable +[phone] Jovita Daly MD Unavailable [phone] Alexander López MD Unamarcelina lable Jese Doyle MD Unavailable +[phone] Roshni Nascimento RN Unavailable Unavailable Johana Groves [facility] Unavailable Kiet Swain MD Unavailable [phone] Winsome Pike APRN EARTH MOVING TECHNICIAN Unavailable +[phone] Tori Hines [facility] Unavailable Miranda Queen [facility] Unavailable Unavailable Winsome Pike APRN EARTH MOVING TECHNICIAN Unavailable Marisel Armando MD Unavailable Marisel Armando MD Unavailable Inderjit Ugalde MD Unavailable [phone] Wesley Barrett MD Unavailable +[phone] EllaCharles jimenez Michele GIEGER Unavailable +[phone] Miranda Queen [facility] Unavailable Unavailable Leeann Rinaldi MD Unavailable Miranda Queen [facility] Unavailable Unavailable Dyan Fuentes MD Primary Care Provider [phone] Dyan Fuentes MD Unavailable [phone] Katiana Read MD Unavailable [phone] Meme Singleton PhD Unavailable +[phone] Deena Garza APRN EARTH MOVING TECHNICIAN Unavailable +[phone] Mary Del Cid NP Unavailable + [phone] Elham Stack [facility] Unavailable [phone] Emerita Potter [facility] Unavailable +[phone] Mary Del Cid NP Unavailable + [phone] [...] Care Team (Late st Contact Info) Description 02/21/2020 [facility] [id number] [place] [id number] [place] [address] [place] [address] Medication Refill Social History Tobacco Use Types [...] encounter Miscellaneous Notes * Telephone Encounter - Criselda Ma RN - 02/22/2020 9:30 AM CDT Mychart sent Criselda Ma RN, BSN * Telephone Encounter - Len Adhikari MD - 02/22/2020 9:25 AM CDT I have never filled this for her and usually do not manage usp with this med. Are they going to see psychiatry some time soon? * Telephone Encounter - Roshni Nascimento RN - 02/22/2020 8:09 AM CDT Do you fill this for pt? No showing on [employer] BASEBALL COACH either Roshni Nascimento RN documented in this encounter Plan of Treatment Upcoming Encounters Date Type Department Care Team (Late st Contact Info) Description 08/18/2023 3:00 PM MUNICIPAL FIREFIGHTER Office Visit [facility] [address] [place] [address] Katiana Read MD [address] [place] [address] documented as of this encounter Visit Diagnoses Not on filedocumented in this encounter Additional Health Concerns Infection Onset Date Last Indicated Resolved Time Rule Out COVID-19 08/19/2020 08/19/2020 08/19/2020 4:40 PM MUNICIPAL FIREFIGHTER Rule Out C-difficile 02/27/2021 02/27/2021 021 6:10 [...] documented as of this encounter Care Teams Tamping Machine Operator Road Forms Relationship Specialty Start Date End Date Len Adhikari MD PCP - General Family Practice 11/08/16 05/09/22 [place] [address] [place] [address] PCP - General Family Medicine 05/18/22 Jovany Gonzalez MD [facility] ANKLE & FOOT [address] [facility] [address] [place], [place] [address] Orthopedics 02/15/17 Staci Woodward CEMENT MIXER DRIVER [facility] [address] [place] [address] Nurse Practitioner Nurse Practitioner Psych/Mental Health 05/10/17 [place] [address] [place] [address] Assigned PCP 11/14/16 01/22/[address] [facility] [address] [place] [address] Wastewater Engineer Dietitian, Registered 07/25/19 [place] [address] [facility] [address] [place], [place] 9[address] Assigned Musculoskeletal Provider 05/02/20 09/13/20 Katiana Read MD [address] [place], [place] 5[address] Assigned Endocrinology Provider 05/02/20 08/01/21 Jovita Daly MD [address] [place] [address] Assigned Surgical Provider 05/02/20 10/04/20 Alexander López MD [address] [place], [place] [address] Assigned Sleep Provider 05/02/20 11/15/20 Jese Doyle MD [address] [place] [address] 665115 Assigned Pulmonology Provider 05/02/20 04/11/21 Roshni Nascimento, RN Personal Advocate & Liaison (PAL) Family Medicine 08/18/20 [facility] [address] [place] [address] [place], [place] [phone] Pharmacist Pharmacist 08/28/20 11/26/20 Kiet Swain MD [address] [place] [address] 270404 Referring Physician Psychiatry 09/19/20 Winsome Pike APRN EARTH MOVING TECHNICIAN [address] [place] [address] [phone] Nurse Practitioner Psychiatry 09/19/20 Tori Hines, [facility] [address] [place] [address] [phone] Acid Operator Acid Operator - Clinical 09/19/20 [facility] [id number] [place] [address] Pharmacist Pharmacist 11/12/20 Winsome Pike APRN EARTH MOVING TECHNICIAN [address] [place] [address] 800374 Assigned Behavioral Health Provider 01/04/21 07/02/22 Marisel Armando MD [address] [place] [address] 050675 Gastroenterology 02/05/21 Marisel Armando MD 909 [place] [address] Assigned Gastroenterology Provider 03/08/21 12/24/22 Inderjit Ugalde MD [address] [place] [address] Assigned Surgical Provider 02/15/21 08/20/22 Wesley Barrett MD 420 [facility] 96 [place] [address] Assigned Neuroscience Provider 05/10/21 Charles Jaramillo PA-C 6545 [facility] [address] [place] [address] Assigned Musculoskeletal Provider 04/26/21 10/15/22 [facility] [address] [place] [address] Assigned MTM Pharmacist 12/05/21 03/26/22 [place] [address] [place] [address] Assigned PCP 01/23/22 05/14/22 Miranda Queen [facility] [address] [place] [address] Assigned MTM Pharmacist 04/07/22 05/14/22 [place] [address] [place] [address] Assigned PCP 05/15/22 Katiana Read MD [address] [place] [address] Assigned Endocrinology Provider 06/19/22 [place] PhD [address] [place] [address] Assigned Behavioral Health Provider 07/03/22 12/31/22 Deena Garza, LINEN TECH EARTH MOVING TECHNICIAN [address] [place] [place] [address] Assigned Pain Medication Provider 07/19/22 10/29/22 Mary Del Cid, RAFAEL [address] [place] [place] [address] Nurse Practitioner Nurse Practitioner 10/18/22 Elham Stack, [facility] [address] [place] [address] Pharmacist Pharmacist 10/19/22 Emerita Potter, [facility] Clinic Director [employer] Acid Operator - Clinical 10/29/22 11/02/22 [place] [address] [place] [address] Assigned Pain Medication Provider 10/30/22 12/03/22 Michelle Guzman DPM, Podiatry/Foot and Ankle Surgery [address] [facility] [place] [address] Assigned Musculoskeletal Provider 10/16/22 04/08/23 [place] [address] [place] [address] Assigned Pain Medication Provider 12/04/22 04/01/23 [place] [address] [place] [address] Nurse Practitioner Nurse Practitioner 01/17/23 01/17/23 Aubrey Jones MD [address] [place] [address] Cardiovascular Disease 03/28/23 Blanquita Morales Wastewater Engineer Diabetes Education 04/25/23 Aubrey Jones MD [address] [place] [address] Assigned Heart and Vascular Provider 05/07/23 documented as of this encounter
--- OUTSIDE RECORDS SUMMARY | 2023-08-03 10:16 | XMS_ITS | Encounter Summary ---
Author Name Unknown Organization [place] Address [address] [place] [address]. [place] [address] Care Team Providers Care Tearoom Host Name Role Phone Len Adhikari MD Primary Care Provider Jovany Gonzalez MD Unavailable CrissyStaci jeong [employer] FIELD COORDINATOR Unavailable [phone] Len Adhikari MD Unavailable [phone] Unavailable [phone] Jamshid Granados MD Unavailable [phone] Katiana Read MD Unavailable [phone] Jovita Daly MD Unavailable +[phone] Alexander López MD Unamarcelina lable Jese Doyle MD Unavailable +[phone] Roshni Nascimento RN Unavailable Unavailable Johana Groves [facility] Unavailable Kiet Swain MD Unavailable [phone] Winsome Pike APRN PROMOTIONS INTERN Unavailable +[phone] Tori Hines [facility] Unavailable Miranda Queen [facility] Unavailable Unavailable Winsome Pike APRN PROMOTIONS INTERN Unavailable Marisel Armando MD Unavailable Marisel Armando MD Unavailable Inderjit Ugalde MD Unavailable [phone] Wesley Barrett MD Unavailable +[phone] EllaCharles jimenez Michele GEIGER Unavailable +[phone] Miranda Queen [facility] Unavailable Unavailable Leeann Rinaldi MD Unavailable Miranda Queen [facility] Unavailable Unavailable Dyan Fuentes MD Primary Care Provider [phone] Dyan Fuentes MD Unavailable +[phone] Katiana Read MD Unavailable [phone] Meme Singleton PhD Unavailable [phone] Deena Garza APRN PROMOTIONS INTERN Unavailable +[phone] Mary Del Cid NP Unavailable + [phone] Elham Stack [facility] Unavailable +[phone] Emerita Potter [facility] Unavailable [phone] Mary Del Cid NP Unavailable + [phone] Michelle Guzman DPM, Podiatry /Foot and Ankle Surgery Unavailable Dyan Fuentes MD Unavailable [phone] Mary Del Cid NP Unavailable + [phone] Aubrey Jones MD Unavailable [phone] Blanquita Morales Unavailable Unavailable Aubrey Jones MD Unavailable [phone] Encounter Details Date Type Department Care Team (Late st Contact Info) Description 03/12/2020 Telephone [facility] [id number] [place] [phone] [place] [address] [place] [address] Social History Tobacco Use Types Packs/Day Years [...] Telephone Encounter - Criselda Ma RN - 03/12/2020 12:42 PM CDT Received fax but unsure if this is a legitimit company. LM for to call and verify Criselda Ma RN, BSN * Telephone Encounter - Tasha Baiely - 03/12/2020 12:28 PM CDT Mick from [employer] called, stated that this is the 3rd time they have reached out aboutgetting pt catheters. I told him that I was not seeing any encounters that were put in nor do I seeany faxes that they have sent. I reached out to the team but there was no answer. Mick stated that they need chart notes and an order as to why pt needs catheters. Mick did state that pt uses catheters 5x a day. Call Mick at [phone] ext: [phone] with questions or fax order to [phone] Tasha Bailey Patient Limo Driver documented in this encounter Plan of Treatment Upcoming Encounters Date Type Department Care Team (Late st Contact Info) Description 08/18/2023 3:00 PM MANAGER LIFE Office Visit [facility] [address] [place] [address] Katiana Read MD [address] [place] [address] documented as of this encounter Visit Diagnoses Not on filedocumented in this encounter Additional Health Concerns Infection Onset Date Last Indicated Resolved Time Rule Out COVID-19 08/19/2020 08/19/2020 08/19/2020 4:40 PM MANAGER LIFE Rule Out C-difficile 02/27/2021 02/27/2021 021 6:10 [...] documented as of this encounter Care Teams Tearoom Host Relationship Specialty Start Date End Date Len Adhikari MD PCP - General Family Practice 11/08/16 05/09/22 [place] [address] [place] [address] PCP - General Family Medicine 05/18/22 Jovany Gonzalez MD [facility] [address] [facility] [address] [place] [address] Orthopedics 02/15/17 Staci Woodward [employer] FIELD COORDINATOR [facility] [address] [place] [address] Nurse Practitioner Nurse Practitioner Psych/Mental Health 05/10/17 [place] [address] [place] [address] Assigned PCP 11/14/16 01/22/[address] [facility] [address] [place] [address] Movie Writer Dietitian, Registered 07/25/19 [place] [address] [facility] [address] [place] [address] Assigned Musculoskeletal Provider 05/02/20 09/13/20 Katiana Read MD [address] [place] [address] Assigned Endocrinology Provider 05/02/20 08/01/21 Jovita Daly MD [address] [place] [address] Assigned Surgical Provider 05/02/20 10/04/20 Alexander López MD [address] [place] [address] Assigned Sleep Provider 05/02/20 11/15/20 Jese Doyle MD [address] [place] [address] Assigned Pulmonology Provider 05/02/20 04/11/21 Roshni Nascimento, RN Personal Advocate & Liaison (PAL) Family Medicine 08/18/20 Johana Grovse [facility] [address] [place] [address] [place], [place] [phone] Pharmacist Pharmacist 08/28/20 11/26/20 Kiet Swain MD [address] [place] [address] [id number] Referring Physician Psychiatry 09/19/20 Winsome Pike APRN PROMOTIONS INTERN [address] [place] [address] 315634 Nurse Practitioner Psychiatry 09/19/20 Tori Hines, [facility] [address] [place] [address] [phone] Waybill Clerk Waybill Clerk - Clinical 09/19/20 Miranda Queen [facility] [address] [place] [address] Pharmacist Pharmacist 11/12/20 Winsome Pike APRN PROMOTIONS INTERN [address] [place] [address] Assigned Behavioral Health Provider 01/04/21 07/02/22 Marisel Armando MD [address] [place] [address] Gastroenterology 02/05/21 Marisel Armando MD [address] [place] [address] Assigned Gastroenterology Provider 03/08/21 12/24/22 Inderjit Ugalde MD [address] [place] [address] Assigned Surgical Provider 02/15/21 08/20/22 Wesley Barrett MD 420 [facility] 96 [place] [address] Assigned Neuroscience Provider 05/10/21 Charles Jaramillo PA-C [address] [facility] 450 [place] [address] Assigned Musculoskeletal Provider 04/26/21 10/15/22 [facility] [address] [place] [address] Assigned MTM Pharmacist 12/05/21 03/26/22 [place] [address] [place] [address] Assigned PCP 01/23/22 05/14/22 Miranda Queen [facility] [address] [place] [address] Assigned MTM Pharmacist 04/07/22 05/14/22 [place] [address] [place] [address] Assigned PCP 05/15/22 Katiana Read MD [address] [place] [address] Assigned Endocrinology Provider 06/19/22 [place] [address] [place] [address] Assigned Behavioral Health Provider 07/03/22 12/31/22 Deena Garza APRN PROMOTIONS INTERN [address] [place] [address] Assigned Pain Medication Provider 07/19/22 10/29/22 Mary Del Cid, RAFAEL [address] [place] [address] Nurse Practitioner Nurse Practitioner 10/18/22 Elham Stack, [facility] [address] [facility] [place], [place] [address] Pharmacist Pharmacist 10/19/22 Emerita Potter, [facility] Clinic Greenhouse Grower Waybill Clerk - Clinical 10/29/22 11/02/22 Mary Del Cid, RAFAEL [address] [place] [address] Assigned Pain Medication Provider 10/30/22 12/03/22 Michelle Guzman DPM, Podiatry/Foot and Ankle Surgery [address] [place] [address] [address] Assigned Musculoskeletal Provider 10/16/22 04/08/23 [place] [address] [place] [address] Assigned Pain Medication Provider 12/04/22 04/01/23 [place] [address] [place] [address] Nurse Practitioner Nurse Practitioner 01/17/23 01/17/23 Aubrey Jones MD [address] [place] [address] Cardiovascular Disease 03/28/23 Blanquita Morales Movie Writer Diabetes Education 04/25/23 Aubrey Jones MD [address] [place] [address] Assigned Heart and Vascular Provider 05/07/23 documented as of this encounter
--- OUTSIDE RECORDS SUMMARY | 2023-08-03 10:17 | XMS_ITS | Encounter Summary ---
Author Name Unknown Organization [facility] Address [address] [place] [address]. [place] [address] Care Team Providers Care Lace Roller Name Role Phone Len Adhikari MD Primary Care Provider Jovany Gonzalez MD Unavailable CrissyStaci jeong MUD GRINDER Unavailable [phone] Len Adhikari MD Unavailable Reanna Smith [address] Unavailable [phone] Jamshid Granados MD Unavailable Katiana Read MD Unavailable [phone] Jovita Daly MD Unavailable [phone] Alexander López MD Unamarcelina lable Jese Doyle MD Unavailable [phone] Roshni Nascimento RN Unavailable Unavailable Johana Groves [facility] Unavailable [phone] Kiet Swain MD Unavailable [phone] Winsome Pike APRN RING PACKER Unavailable +[phone] Tori Hines [facility] Unavailable Miranda Queen [facility] Unavailable Unavailable Winsome Pike APRN RING PACKER Unavailable Marisel Armando MD Unavailable Marisel Armando MD Unavailable Inderjit Ugalde MD Unavailable [phone] Wesley Barrett MD Unavailable +[phone] EllaCharles Michele GEIGER Unavailable +[phone] Miranad Queen [facility] Unavailable Unavailable Leeann Rinaldi MD Unavailable Miranda Queen [facility] Unavailable Unavailable Dyan Fuentes MD Primary Care Provider [phone] Dyan Fuentes MD Unavailable [phone] Katiana Read MD Unavailable [phone] Meme Singleton PhD Unavailable [phone] Deena Garza APRN RING PACKER Unavailable +[phone] Mary Del Cid NP Unavailable + [phone] Elham Stack [facility] Unavailable Emerita Potter [facility] Unavailable [phone] Mary Del Cid NP Unavailable + [phone] Michelle Guzman DPM, Podiatry /Foot and Ankle Surgery Unavailable Dyan Fuentes MD Unavailable [phone] Mary Del Cid NP Unavailable [phone] Aubrey Jones MD Unavailable [phone] Blanquita Morales Unavailable Unavailable Aubrey Jones MD Unavailable [phone] Encounter Details Date Type Department Care Team (Late st Contact Info) Description 01/24/2020 [facility] [address] [facility] [address] [place] [address] Rachelle Benites CMA Social History Tobacco Use Types Packs/Day Years [...] have Coronavirus / COVID-19? No / Unsure 01/24/2020 11:32 AM CDT documented as of this encounter Miscellaneous Notes * Telephone Encounter - Rachelle Benites CMA - 01/31/2020 8:56 AM CDT Message sent via [employer]. Zenobia Benites CMA [facility] [place] documented in this encounter Plan of Treatment Upcoming Encounters Date Type Department Care Team (Late st Contact Info) Description 08/18/2023 3:00 PM SENIOR ADMINISTRATIVE SERVICES OFFICER Office Visit [facility] [address] [place] [address] Katiana Read MD [address] [place] [address] documented as of this encounter Visit Diagnoses Not on filedocumented in this encounter Additional Health Concerns Infection Onset Date Last Indicated Resolved Time Rule Out COVID-19 08/19/2020 08/19/2020 08/19/2020 4:40 PM SENIOR ADMINISTRATIVE SERVICES OFFICER Rule Out C-difficile 02/27/2021 02/27/2021 021 6:10 [...] documented as of this encounter Care Teams Lace Roller Relationship Specialty Start Date End Date Len Adhikari MD PCP - General Family Practice 11/08/16 05/09/22 [place] [address] [place] [address] PCP - General Family Medicine 05/18/22 Jovany Gonzalez MD [facility] [address] [facility] [address] [place], [place] 24[address] Orthopedics 02/15/17 Staci Woodward, MUD GRINDER [place] [address] [place], [place] 72[address] Nurse Practitioner Nurse Practitioner Psych/Mental Health 05/10/17 [place] [address] [place] [address] Assigned PCP 11/14/16 01/22/[address] [facility] [address] [place] [address] Cold Roll Inspector Dietitian, Registered 07/25/19 [place] [address] [facility] [address] [place] [address] Assigned Musculoskeletal Provider 05/02/20 09/13/20 Katiana Read MD [address] [place] [address] Assigned Endocrinology Provider 05/02/20 08/01/21 Jovita Daly MD [address] [place] [address] Assigned Surgical Provider 05/02/20 10/04/20 Alexander López MD [address] [place], [place] [address] Assigned Sleep Provider 05/02/20 11/15/20 Jese Doyle MD [address] [facility] [place], [place] [address] Assigned Pulmonology Provider 05/02/20 04/11/21 Roshni Nasicmento, RN Personal Advocate & Liaison (PAL) Family Medicine 08/18/20 Johana Groves [facility]0 [place] [phone] Pharmacist Pharmacist 08/28/20 11/26/20 Kiet Swain MD [address] [place], [place] [phone] Referring Physician Psychiatry 09/19/20 Winsome Pike APRN RING PACKER [address] [place] [address] [phone] Nurse Practitioner Psychiatry 09/19/20 Tori Hines, [facility] [address] [place], [place] [phone] Golf Ball Inspector Golf Ball Inspector - Clinical 09/19/20 Miranda Queen [facility] [address] [place] [address] Pharmacist Pharmacist 11/12/20 Winsome Pike APRN RING PACKER [address] [place] [address] [phone] Assigned Behavioral Health Provider 01/04/21 07/02/22 Marisel Armando MD [address] [place] [address] 684365 Gastroenterology 02/05/21 Marisel Armando MD [address] [place] [address] Assigned Gastroenterology Provider 03/08/21 12/24/22 Inderjit Ugalde MD [address] [facility] 300 [place] [address] Assigned Surgical Provider 02/15/21 08/20/22 Wesley Barrett MD [address] [place] [address] Assigned Neuroscience Provider 05/10/21 Charles Jaramillo PA-C 6545 [facility] 450 [place] [address] Assigned Musculoskeletal Provider 04/26/21 10/15/22 Miranda Queen [facility] [address] [place] [address] Assigned MTM Pharmacist 12/05/21 03/26/22 [place] [address] [place] [address] Assigned PCP 01/23/22 05/14/22 Miranda Queen [facility] [address] [place] [address] Assigned MTM Pharmacist 04/07/22 05/14/22 [place] [address] [place] [address] Assigned PCP 05/15/22 Katiana Read MD [address] [place] [address] 200 [place] [address] Assigned Endocrinology Provider 06/19/22 [place]e [place] PhD [address] [place] [address] Assigned Behavioral Health Provider 07/03/22 12/31/22 Deena Garza, PRODUCTION EXPEDITER RING PACKER [address] [place] [address] [address] Assigned Pain Medication Provider 07/19/22 10/29/22 Mary Del Cid, RAFAEL [address] [place] [address] Nurse Practitioner Nurse Practitioner 10/18/22 Elham Stack, [facility] [address] [place] [address] Pharmacist Pharmacist 10/19/22 Emerita Potter, [facility] Clinic Maintenance Apprentice Golf Ball Inspector - Clinical 10/29/22 11/02/22 [place] [address] [place] [address] Assigned Pain Medication Provider 10/30/22 12/03/22 Michelle Guzman DPM, Podiatry/Foot and Ankle Surgery [address] [place] [address] Assigned Musculoskeletal Provider 10/16/22 04/08/23 [place] [address] [place] [address] Assigned Pain Medication Provider 12/04/22 04/01/23 [place] [address] [place] [address] Nurse Practitioner Nurse Practitioner 01/17/23 01/17/23 Aubrey Jones MD [address] [place] [address] Cardiovascular Disease 03/28/23 Blanquita Morales Cold Roll Inspector Diabetes Education 04/25/23 Aubrey Jones MD [address] [place] [address] Assigned Heart and Vascular Provider 05/07/23 documented as of this encounter
--- OUTSIDE RECORDS SUMMARY | 2023-08-03 10:17 | XMS_ITS | Encounter Summary ---
Author Name Unknown Organization [place] Address [address] [place] [address]. [place] [address] Care Team Providers Care Cryptologist Name Role Phone Len Adhikari MD Primary Care Provider Jovany Gonzalez MD Unavailable [phone] CrissyStaci jeong SALES FACILITATOR Unavailable [phone] Len Adhikari MD Unavailable Reanna Smith RD Unavailable [phone] Jamshid Granados MD Unavailable +[phone] Katiana Read MD Unavailable +[phone] Jovita Daly MD Unavailable +[phone] Alexander López MD Unamarcelina lable Jese Doyle MD Unavailable +[phone] Roshni Nascimento RN Unavailable Unavailable Johana Groves [facility] Unavailable +[phone] Kiet Swain MD Unavailable [phone] Winsome Pike APRN PLUG MACHINE OPERATOR Unavailable +[phone] Tori Hines [facility] Unavailable Miranda Queen [facility] Unavailable Unavailable Winsome Pike APRN PLUG MACHINE OPERATOR Unavailable Marisel Armando MD Unavailable Marisel Armando MD Unavailable Inderjit Ugalde MD Unavailable [phone] Wesley Barrett MD Unavailable +[phone] EllaCharles jimenez Michele GEIGER Unavailable +[phone] Miranda Queen [facility] Unavailable Unavailable Leeann Rinaldi MD Unavailable Miranda Queen [facility] Unavailable Unavailable Dyan Fuentes MD Primary Care Provider [phone] Dyan Fuentes MD Unavailable [phone] Katiana Read MD Unavailable [phone] Meme Singleton PhD Unavailable +[phone] Deena Garza APRN PLUG MACHINE OPERATOR Unavailable [phone] Mary Del Cid NP Unavailable + [phone] Elham Stack [facility] Unavailable +[phone] Emerita Potter [facility] Unavailable [phone] Mary Del Cid NP Unavailable + [phone] Michelle Guzman DPM, Podiatry /Foot and Ankle Surgery Unavailable Dyan Fuentes MD Unavailable [phone] Mary Del Cid NP Unavailable + [phone] Aubrey Jones MD Unavailable [phone] Blanquita Morales Unavailable Unavailable Aubrey Jones MD Unavailable +[phone] Encounter Details Date Type Department Care Team (Late st Contact Info) Description 01/14/2020 [facility] [address] [address] [place] [address] [place] [address] Social History Tobacco Use Types Packs/Day Years [...] have Coronavirus / COVID-19? No / Unsure 01/02/2020 4:54 PM CDT documented as of this encounter Plan of Treatment Upcoming Encounters Date Type Department Care Team (Late st Contact Info) Description 08/18/2023 3:00 PM BLOCK FEEDER [facility] Visit [facility] [address] [facility] [address] [place] [address] Katiana Read MD [address] [place] [address] [address] [place] [address] documented as of this encounter Visit Diagnoses Not on filedocumented in this encounter Additional Health Concerns Infection Onset Date Last Indicated Resolved Time Rule Out COVID-19 08/19/2020 08/19/2020 08/19/2020 4:40 PM BLOCK FEEDER Rule Out C-difficile 02/27/2021 02/27/2021 021 6:10 [...] documented as of this encounter Care Teams Cryptologist Relationship Specialty Start Date End Date Len Adhikari MD PCP - General Family Practice 11/08/16 05/09/22 [place] [address] [place] [address] PCP - General Family Medicine 05/18/22 Jovany Gonzalez MD [facility] 6600 [facility] [address] [place] [address] Orthopedics 02/15/17 Staci Woodward SALES FACILITATOR [place] [address] [place] [address] Nurse Practitioner Nurse Practitioner Psych/Mental Health 05/10/17 [place] [address] [facility] [place] [address] Assigned PCP 11/14/16 01/22/[address] [facility] [address] [place] [address] Land Conservation Specialist Dietitian, Registered 07/25/19 [place] [address] [facility] [address] [place], [place] [address] Assigned Musculoskeletal Provider 05/02/20 09/13/20 Katiana Read MD [address] [place], [place] [address] Assigned Endocrinology Provider 05/02/20 08/01/21 Jovita Daly MD [address] [place], [place] [address] Assigned Surgical Provider 05/02/20 10/04/20 Alexander López MD 606 [facility] 106 [place] [address] Assigned Sleep Provider 05/02/20 11/15/20 Jese Doyle MD 909 [place] [address] Assigned Pulmonology Provider 05/02/20 04/11/21 Roshni Nascimento RN Personal Advocate & Liaison (PAL) Family Medicine 08/18/20 Johana Groves [facility] [address] [place], [place] [id number] Pharmacist Pharmacist 08/28/20 11/26/20 Kiet Swain MD 2450 [facility] [address] [place], [place] [id number] Referring Physician Psychiatry 09/19/20 Winsome Pike APRN PLUG MACHINE OPERATOR [address] [address] Nurse Practitioner Psychiatry 09/19/20 Tori Hines [facility] 2450 [place], [place] [phone] Sales Systems Engineer Sales Systems Engineer - Clinical 09/19/20 Miranda Queen [facility] [address] [place] [address] Pharmacist Pharmacist 11/12/20 Winsome Pike APRN PLUG MACHINE OPERATOR [address] [phone] Assigned Behavioral Health Provider 01/04/21 07/02/22 Marisel Armando MD [address] [place] [phone] Gastroenterology 02/05/21 Marisel Armando MD 909 [place], [place] 4[address] Assigned Gastroenterology Provider 03/08/21 12/24/22 Inderjit Ugalde MD [address] [facility] 300 [place], [place] [address]97 Assigned Surgical Provider 02/15/21 08/20/22 Wesley Barrett MD 420 [facility] 96 [place], [place] [address] Assigned Neuroscience Provider 05/10/21 Charles Jaramillo PA-C [address] [address] Assigned Musculoskeletal Provider 04/26/21 10/15/22 [facility] [address] [place] [address] Assigned MTM Pharmacist 12/05/21 03/26/22 [place] [address] [place] [address] Assigned PCP 01/23/22 05/14/22 [facility] [address] [place] [address] Assigned MTM Pharmacist 04/07/22 05/14/22 [place] [address] [place] [address] Assigned PCP 05/15/22 Katiana Read MD [address] [place] [address] Assigned Endocrinology Provider 06/19/22 [place] [address] [place] [address] Assigned Behavioral Health Provider 07/03/22 12/31/22 Deena Garza APRN PLUG MACHINE OPERATOR [address] [place] [address]37 Assigned Pain Medication Provider 07/19/22 10/29/22 Mary Del Cid, RAFAEL [address] [place] 17[address]27 Nurse Practitioner Nurse Practitioner 10/18/22 Elham Stack, [facility] 3033 [place] [address] Pharmacist Pharmacist 10/19/22 Abbey Emerita M, [facility] Clinic Editor & Co Founder Sales Systems Engineer - Clinical 10/29/22 11/02/22 [place] [address] [address] [address] Assigned Pain Medication Provider 10/30/22 12/03/22 Michelle Guzman, DPM, Podiatry/Foot and Ankle Surgery [address] [place] [address] Assigned Musculoskeletal Provider 10/16/22 04/08/23 [place] [address] [address] [address] Assigned Pain Medication Provider 12/04/22 04/01/23 [place] [address] [place] [address] Nurse Practitioner Nurse Practitioner 01/17/23 01/17/23 Aubrey Jones MD [address] [place] [address] Cardiovascular Disease 03/28/23 Blanquita Morales Land Conservation Specialist Diabetes Education 04/25/23 Aubrey Jones MD [address] [place] [address] Assigned Heart and Vascular Provider 05/07/23 documented as of this encounter
--- OUTSIDE RECORDS SUMMARY | 2023-08-03 10:17 | XMS_ITS | Encounter Summary ---
Author Name Unknown Organization [place] Address [address] [place] [address]. [place] [address] Care Team Providers Care Tow Car Driver Name Role Phone Len Adhikari MD Primary Care Provider Jovany Gonzalez MD Unavailable CrissyStaci jeong CHEMICAL APPLICATOR Unavailable [phone] Len Adhikari MD Unavailable Reanna Smith RD Unavailable Jamshid Granados MD Unavailable Katiana Read MD Unavailable [phone] Jovita Daly MD Unavailable [phone] Alexander López MD Unamarcelina lable Jese Doyle MD Unavailable +[phone] Roshni Nascimento RN Unavailable Unavailable Johana Groves [facility] Unavailable Kiet Swain MD Unavailable [phone] Winsome Pike APRN LOSS CONTROL ENGINEER Unavailable +[phone] Tori Hines [facility] Unavailable Miranda Queen [facility] Unavailable Unavailable Winsome Pike APRN LOSS CONTROL ENGINEER Unavailable Marisel Armando MD Unavailable Marisel Armando MD Unavailable Inderjit Ugalde MD Unavailable [phone] Wesley Barrett MD Unavailable +[phone] EllaCharles jimenez Michele GEIGER Unavailable +[phone] Miranda Queen [facility] Unavailable Unavailable Leeann Rinaldi MD Unavailable Miranda Queen [facility] Unavailable Unavailable Dyan Fuentes MD Primary Care Provider [phone] Dyan Fuentes MD Unavailable [phone] Katiana Read MD Unavailable [phone] Meme Singleton PhD Unavailable [phone] Deena Garza APRN LOSS CONTROL ENGINEER Unavailable +[phone] Mary Del Cid NP Unavailable + [phone] Elham Stack [facility] Unavailable [phone] Emerita Potter [facility] Unavailable [phone] Mary Del Cid NP Unavailable + [phone] Michelle Guzman DPM, Podiatry /Foot and Ankle Surgery Unavailable Dyan Fuentes MD Unavailable [phone] Mary Del Cid NP Unavailable + [phone] Aubrey Jones MD Unavailable [phone] Blanquita Morales Unavailable Unavailable Aubrey Jones MD Unavailable [phone] Reason for Visit * Reason Onset Date Comments MyChart Communication 02/21/2020 med reques t Encounter Details Date Type Department Care Team (Late st Contact Info) Description 02/21/2020 [facility] [address] [place] [address] [place] [address] [place] [address] MyChart Communication (med request ) Social History Tobacco Use Types Packs/Day [...] st Contact Info) Description 08/18/2023 3:00 PM GAUGER CHIEF Office Visit [facility] [address] [facility] [address] [place] [address] Katiana Read MD [address] [place] [address] documented as of this encounter Visit Diagnoses Not on filedocumented in this encounter Additional Health Concerns Infection Onset Date Last Indicated Resolved Time Rule Out COVID-19 08/19/2020 08/19/2020 08/19/2020 4:40 PM GAUGER CHIEF Rule Out C-difficile 02/27/2021 02/27/2021 021 6:10 [...] documented as of this encounter Care Teams Tow Car Driver Relationship Specialty Start Date End Date Len Adhikari MD PCP - General Family Practice 11/08/16 05/09/22 [place] [address] [place] [address] PCP - General Family Medicine 05/18/22 Jovany Gonzalez MD [facility] 6600 [facility] 605 [place], [place] 99[address] Orthopedics 02/15/17 Staci Woodward, CHEMICAL APPLICATOR [facility] [address] [place], [place] [address] Nurse Practitioner Nurse Practitioner Psych/Mental Health 05/10/17 [place] [address] [place] [address] Assigned PCP 11/14/16 01/22/[address] [facility] [address] [place] [address] Charge Machine Operator Dietitian, Registered 07/25/19 [place] [address] [facility] [address] [place], [place] [address] Assigned Musculoskeletal Provider 05/02/20 09/13/20 Katiana Read MD [address] [place], [place] 6[address] Assigned Endocrinology Provider 05/02/20 08/01/21 Jovita Daly MD [address] [facility] [place] [address]387 Assigned Surgical Provider 05/02/20 10/04/20 Alexander López MD [address] [facility] 106 [place], [place] [address]404 Assigned Sleep Provider 05/02/20 11/15/20 Jese Doyle MD 909 [place], [place] 5303[address] Assigned Pulmonology Provider 05/02/20 04/11/21 Roshni Nascimento RN Personal Advocate & Liaison (PAL) Family Medicine 08/18/20 Johana Groves, [facility] [address] [place] [phone] Pharmacist Pharmacist 08/28/20 11/26/20 Kiet Swain MD [address] [place], [place] [address] Referring Physician Psychiatry 09/19/20 Winsome Pike APRN LOSS CONTROL ENGINEER [address] [place] [address] [phone] Nurse Practitioner Psychiatry 09/19/20 Tori Hines [facility] 2450 [place], [place] [address] Textile Machinery Instructor Textile Machinery Instructor - Clinical 09/19/20 Miranda Queen [facility] [address] [place] [address] Pharmacist Pharmacist 11/12/20 Winsome Pike APRN LOSS CONTROL ENGINEER [address] [place] [address] [phone] Assigned Behavioral Health Provider 01/04/21 07/02/22 Marisel Armando MD [address] [place] [address] Gastroenterology 02/05/21 Marisel Armando MD [address] [place] [address] 398165 Assigned Gastroenterology Provider 03/08/21 12/24/22 Inderjit Ugalde MD [address] [facility] 300 [place], [place] [address] Assigned Surgical Provider 02/15/21 08/20/22 Wesley Barrett MD [address] [place] [address] 365095 Assigned Neuroscience Provider 05/10/21 Charles Jaramillo PA-C [address] 683875 Assigned Musculoskeletal Provider 04/26/21 10/15/22 [facility] [address] [place] [address] Assigned MTM Pharmacist 12/05/21 03/26/22 [place] [address] [place] [address] Assigned PCP 01/23/22 05/14/22 [facility] [address] [place] [address] Assigned MTM Pharmacist 04/07/22 05/14/22 [place] [address] [place] [address] Assigned PCP 05/15/22 Katiana Read MD [address] [place] [address] Assigned Endocrinology Provider 06/19/22 Meme Singleton, PhD [address] [place] [address] Assigned Behavioral Health Provider 07/03/22 12/31/22 Deena Garza, DIRECTOR HAIR LOSS CONTROL ENGINEER [address] [place] [address] Assigned Pain Medication Provider 07/19/22 10/29/22 Mary Del Cid, CHEMICAL APPLICATOR [address] [place] [address] Nurse Practitioner Nurse Practitioner 10/18/22 Elham Stack, [facility] 3033 [place] [address] Pharmacist Pharmacist 10/19/22 Emerita Potter, [facility] Clinic Electronic Publications Specialist Textile Machinery Instructor - Clinical 10/29/22 11/02/22 [place] [address] [place] [address] Assigned Pain Medication Provider 10/30/22 12/03/22 Michelle Guzman, ERIC, Podiatry/Foot and Ankle Surgery [address] [place] [address] Assigned Musculoskeletal Provider 10/16/22 04/08/23 [place] [address] [place] [address] Assigned Pain Medication Provider 12/04/22 04/01/23 [place] [address] [place] [address] Nurse Practitioner Nurse Practitioner 01/17/23 01/17/23 Aubrey Jones MD [address] [place] [address] Cardiovascular Disease 03/28/23 Blanquita Morales Charge Machine Operator Diabetes Education 04/25/23 Aubrey Jones MD [address] [place] [address] Assigned Heart and Vascular Provider 05/07/23 documented as of this encounter
--- OUTSIDE RECORDS SUMMARY | 2023-08-03 10:17 | XMS_ITS | Encounter Summary ---
Author Name Unknown Organization [place] Address [address] [place] [address]. [place] [address] Care Team Providers Care African Studies Professor Name Role Phone Len Adhikari MD Primary Care Provider Jovany Gonzalez MD Unavailable CrissyStaci jeong MANAGER FLIGHT OPERATIONS Unavailable [phone] Len Adhikari MD Unavailable [phone] Unavailable Jamshid Granados MD Unavailable Katiana Read MD Unavailable +[phone] Jovita Daly MD Unavailable +[phone] Alexander López MD Unamarcelina lable Jese Doyle MD Unavailable [phone] Roshni Nascimento RN Unavailable Unavailable Johana Groves [facility] Unavailable Kiet Swain MD Unavailable Winsome Pike APRN DEGREASING SOLUTION MIXER Unavailable [phone] Tori Hines [facility] Unavailable Miranda Queen [facility] Unavailable Unavailable Winsome Pike APRN DEGREASING SOLUTION MIXER Unavailable Marisel Armando MD Unavailable Marisel Armando MD Unavailable Inderjit Ugalde MD Unavailable [phone] Wesley Barrett MD Unavailable +[phone] EllaCharles Michele GEIGER Unavailable +[phone] Miranda Queen [facility] Unavailable Unavailable Leeann Rinaldi MD Unavailable Miranda Queen [facility] Unavailable Unavailable Dyan Fuentes MD Primary Care Provider [phone] Dyan Fuentes MD Unavailable [phone] Katiana Read MD Unavailable [phone] Meme Singleton PhD Unavailable [phone] Deena Garza APRN DEGREASING SOLUTION MIXER Unavailable +[phone] Mary Del Cid NP Unavailable + [phone] Elham Stack [facility] Unavailable Emerita Potter [facility] Unavailable [phone] Mary Del Cid NP Unavailable + [phone] Michelle Guzman DPM, Podiatry /Foot and Ankle Surgery Unavailable Dyan Fuentes MD Unavailable [phone] Mary Del Cid NP Unavailable [phone] Aubrey Jones MD Unavailable [phone] Blanquita Morales Unavailable Unavailable Aubrey Jones MD Unavailable [phone] Encounter Details Date Type Department Care Team (Late st Contact Info) Description 11/27/2019 MyC Medical Advice [address] [place] [address] Rachelle Benites CMA Social History Tobacco Use [...] have Coronavirus / COVID-19? No / Unsure 11/21/2019 1:48 PM CDT documented as of this encounter Miscellaneous Notes * Telephone Encounter - Rachelle Benites CMA - 11/28/2019 12:51 PM CDT appt cx due to illness. Message sent via [employer]. PATRICK Chu [facility] [place] * Telephone Encounter - Rachelle Benites CMA - 11/28/2019 12:34 PM CDT Message sent via [employer]. PATRICK Chu [facility] [place] documented in this encounter Plan of Treatment Upcoming Encounters Date Type Department Care Team (Late st Contact Info) Description 08/18/2023 3:00 PM HAND I BLOCKER Office Visit [facility] [address] [place] [address] Katiana Read MD [address] [place] [address] documented as of this encounter Visit Diagnoses Not on filedocumented in this encounter Additional Health Concerns Infection Onset Date Last Indicated Resolved Time Rule Out COVID-19 08/19/2020 08/19/2020 08/19/2020 4:40 PM HAND I BLOCKER Rule Out C-difficile 02/27/2021 02/27/2021 021 6:10 [...] documented as of this encounter Care Teams African Studies Professor Relationship Specialty Start Date End Date Len Adhikari MD PCP - General Family Practice 11/08/16 05/09/22 [place] [address] [place] [address] PCP - General Family Medicine 05/18/22 Jovany Gonzalez MD [facility] 6600 [facility] [address] [place] [address] Orthopedics 02/15/17 Staci Woodward NP [facility] [address] [place], [place] [address] Nurse Practitioner Nurse Practitioner Psych/Mental Health 05/10/17 [place] [address] [place] [address] Assigned PCP 11/14/16 01/22/22 Reanna Smith, RD [facility] [address] [place] [address] Electric Car Operator Dietitian, Registered 07/25/19 [place] [address] [facility] [address] [place], [place] [address] Assigned Musculoskeletal Provider 05/02/20 09/13/20 Katiana Read MD [address] 200 [place], [place] [address] Assigned Endocrinology Provider 05/02/20 08/01/21 Jovita Daly MD [address] [place], [place] [address] Assigned Surgical Provider 05/02/20 10/04/20 Alexander óLpez MD 606 [facility] 106 [place], [place] [address] Assigned Sleep Provider 05/02/20 11/15/20 Jese Doyle MD 909 [place] [address] Assigned Pulmonology Provider 05/02/20 04/11/21 Roshni Nascimento RN Personal Advocate & Liaison (PAL) Family Medicine 08/18/20 Johana Groves [facility] [place] [address] [place] [address] Pharmacist Pharmacist 08/28/20 11/26/20 Kiet Swain MD [address] [place] [address] [address] [place] [address] Referring Physician Psychiatry 09/19/20 Winsome Pike APRN DEGREASING SOLUTION MIXER [address] [place] [address] Nurse Practitioner Psychiatry 09/19/20 Tori Hines [facility] [address] [place] [address] Engineer Process Engineer Process - Clinical 09/19/20 Miranda Queen [facility] [address] [place] [address] Pharmacist Pharmacist 11/12/20 Winsome Pike APRN DEGREASING SOLUTION MIXER [address] [place] [address] Assigned Behavioral Health Provider 01/04/21 07/02/22 Marisel Armando MD [address] [place] [address] Gastroenterology 02/05/21 Marisel Armando MD [address] [place] [address] Assigned Gastroenterology Provider 03/08/21 12/24/22 Inderjit Ugalde MD [address] [address] Assigned Surgical Provider 02/15/21 08/20/22 Wesley Barrett MD 420 [facility] 96 [place] [address] Assigned Neuroscience Provider 05/10/21 Charles Jaramillo PA-C 6545 [facility] 450 [place] [address] Assigned Musculoskeletal Provider 04/26/21 10/15/22 [facility] [address] [place] [address] Assigned MTM Pharmacist 12/05/21 03/26/22 [place] [address] [place] [address] Assigned PCP 01/23/22 05/14/22 [facility] [address] [place] [address] Assigned MTM Pharmacist 04/07/22 05/14/22 [place] [address] [place] [address] Assigned PCP 05/15/22 Katiana Read MD [address] [place] [address] 200 [place] [address] Assigned Endocrinology Provider 06/19/22 [place] PhD [address] [place] [id number] Assigned Behavioral Health Provider 07/03/22 12/31/22 Deena Garza APRN DEGREASING SOLUTION MIXER [address] [place] [phone] Assigned Pain Medication Provider 07/19/22 10/29/22 [place] [address] [address] [place] [address] Nurse Practitioner Nurse Practitioner 10/18/22 Elham Stack, [facility] [address] [facility] [place] [address] Pharmacist Pharmacist 10/19/22 Emerita Potter, [facility] Clinic Product Director Engineer Process - Clinical 10/29/22 11/02/22 [place] [address] [address] [place] [address] Assigned Pain Medication Provider 10/30/22 12/03/22 Michelle Guzman DPM, Podiatry/Foot and Ankle Surgery [address] [place] [address] Assigned Musculoskeletal Provider 10/16/22 04/08/23 [place] [address] [place] [address] Assigned Pain Medication Provider 12/04/22 04/01/23 [place] [address] [address] [place] [address] Nurse Practitioner Nurse Practitioner 01/17/23 01/17/23 Aubrey Jones MD [address] [place] [address] Cardiovascular Disease 03/28/23 Blanquita Morales Electric Car Operator Diabetes Education 04/25/23 Aubrey Jones MD [address] [place] [address] Assigned Heart and Vascular Provider 05/07/23 documented as of this encounter
--- OUTSIDE RECORDS SUMMARY | 2023-08-03 10:17 | XMS_ITS | Encounter Summary ---
Author Name Unknown Organization [facility] Address [address] [place] [address]. [place] [address] Care Team Providers Care Territory Sales Consultant Name Role Phone Len Adhikari MD Primary Care Provider Jovany Gonzalez MD Unavailable [phone] CrissyStaci jeong LIVING MANAGER Unavailable [phone] Len Adhikari MD Unavailable [phone] Unavailable Jamshid Granados MD Unavailable +[phone] Katiana Read MD Unavailable +[phone] Jovita Daly MD Unavailable +[phone] Alexander López MD Unamarcelina lable Jese Doyle MD Unavailable +[phone] Roshni Nascimento RN Unavailable Unavailable Johana Groves [facility] Unavailable Kiet Swain MD Unavailable [phone] Winsome Pike APRN RIGGING AND CONTROLS AIRCRAFT MECHANIC Unavailable +[phone] Tori Hines [facility] Unavailable Miranda Queen [facility] Unavailable Unavailable Winsome Pike APRN RIGGING AND CONTROLS AIRCRAFT MECHANIC Unavailable Marisel Armando MD Unavailable Marisel Armando MD Unavailable Inderjit Ugalde MD Unavailable [phone] Wesley Barrett MD Unavailable +[phone] EllaCharles jimenez Michele GEIGER Unavailable +[phone] Miranda Queen [facility] Unavailable Unavailable Leeann Rinaldi MD Unavailable Miranda Queen [facility] Unavailable Unavailable Dyan Fuentes MD Primary Care Provider +[phone] Dyan Fuentes MD Unavailable +[phone] Katiana Raed MD Unavailable +[phone] Meme Singleton PhD Unavailable +[phone] Deena Garza APRN RIGGING AND CONTROLS AIRCRAFT MECHANIC Unavailable +[phone] Mary Del Cid NP Unavailable + [phone] Elham Stack [facility] Unavailable +[phone] Emerita Potter [facility] Unavailable [phone] Mary Del Cid NP Unavailable + [phone] Michelle Guzman DPM, Podiatry /Foot and Ankle Surgery Unavailable Dyan Fuentes MD Unavailable +[phone] Mary Del Cid NP Unavailable + [phone] Aubrey Jones MD Unavailable +[phone] Blanquita Morales Unavailable Unavailable Aubrey Jones MD Unavailable +[phone] Encounter Details Date Type Department Care Team (Late st Contact Info) Description 02/11/2020 [facility] [address] [address] Criselda Ma APRN RIGGING AND CONTROLS AIRCRAFT MECHANIC Social History Tobacco Use Types Packs/Day Years [...] Upcoming Encounters Date Type Department Care Team ([facility] st Contact Info) Description 08/18/2023 3:00 PM TRUCK CATERER Office Visit [facility] [address] [facility] [address] [place] [address] Katiana Read MD [address] [place] [address] 200 [place] [address] documented as of this encounter Visit Diagnoses Not on filedocumented in this encounter Additional Health Concerns Infection Onset Date Last Indicated Resolved Time Rule Out COVID-19 08/19/2020 08/19/2020 08/19/2020 4:40 PM TRUCK CATERER Rule Out C-difficile 02/27/2021 02/27/2021 021 6:10 [...] documented as of this encounter Care Teams Territory Sales Consultant Relationship Specialty Start Date End Date Len Adhikari MD PCP - General Family Practice 11/08/16 05/09/22 [place] [address] [place] [address] PCP - General Family Medicine 05/18/22 Jovany Gonzalez MD [facility] 6600 [facility] 605 [place], [place] [phone] Orthopedics 02/15/17 Staci Woodward NP [facility] [address] [place], [place] [phone] Nurse Practitioner Nurse Practitioner Psych/Mental Health 05/10/17 [place] [address] [facility] [place] [address] Assigned PCP 11/14/16 01/22/[address] [facility] [address] [place], [place] [phone] Field Operations Farm Manager Dietitian, Registered 07/25/[address] [place] [address] [facility] 300 [place], [place] [phone] Assigned Musculoskeletal Provider 05/02/20 09/13/20 Katiana Read MD [address] [facility] 200 [place], [place] [address]320 Assigned Endocrinology Provider 05/02/20 08/01/21 Jovita Daly MD [address] [place] [address] Assigned Surgical Provider 05/02/20 10/04/20 Alexander López MD [address] [facility] 106 [place], [place] 7[address] Assigned Sleep Provider 05/02/20 11/15/20 Jese Doyle MD 909 [place], [place] [address]45 Assigned Pulmonology Provider 05/02/20 04/11/21 Roshni Nascimento RN Personal Advocate & Liaison (PAL) Family Medicine 08/18/20 Johana Groves, [facility] [address] [facility] [address] [place], [place] [phone] Pharmacist Pharmacist 08/28/20 11/26/20 Kiet Swain MD [address] [facility] [address] [place], [place] 10[address]24 Referring Physician Psychiatry 09/19/20 Winsome Pike APRN RIGGING AND CONTROLS AIRCRAFT MECHANIC [address] [place] [address] Nurse Practitioner Psychiatry 09/19/20 Tori Hines, [facility] [address] [place], [place] 502284 Cherry Cutter Cherry Cutter - Clinical 09/19/20 Miranda Queen [facility] [address] [place] [address] Pharmacist Pharmacist 11/12/20 Winsome Pike APRN RIGGING AND CONTROLS AIRCRAFT MECHANIC [address] [place] [address] 773754 Assigned Behavioral Health Provider 01/04/21 07/02/22 Marisel Armando MD [address] [place] [address] 489975 Gastroenterology 02/05/21 Marisel Armando MD [address] [place] [address] 874495 Assigned Gastroenterology Provider 03/08/21 12/24/22 Inderjit Ugalde MD [address] [facility] 300 [place] [address] Assigned Surgical Provider 02/15/21 08/20/22 Wesley Barrett MD [address] [facility] 96 [place], [place] 8[address] Assigned Neuroscience Provider 05/10/21 Charles Jaramillo PA-C [address] 769805 Assigned Musculoskeletal Provider 04/26/21 10/15/22 Miranda Queen [facility] [address] [place] [address] Assigned MTM Pharmacist 12/05/21 03/26/22 [place] [address] [place] [address] Assigned PCP 01/23/22 05/14/22 Miranda Queen [facility] [address] [place] [address] Assigned MTM Pharmacist 04/07/22 05/14/22 [place] [address] [place] [address] Assigned PCP 05/15/22 Katiana Read MD [address] [address] Assigned Endocrinology Provider 06/19/22 [place] PhD [address] [place] 6[address]27 Assigned Behavioral Health Provider 07/03/22 12/31/22 Deena Garza APRN RIGGING AND CONTROLS AIRCRAFT MECHANIC [address] [place] [address] Assigned Pain Medication Provider 07/19/22 10/29/22 Mary Del Cid, RAFAEL [address] [place] [address] Nurse Practitioner Nurse Practitioner 10/18/22 Elham Stack, [facility] 3033 [place] [address] Pharmacist Pharmacist 10/19/22 Emerita Potter, [facility] Clinic Waiter/Waitress Tourist Class Cherry Cutter - Clinical 10/29/22 11/02/22 [place] [address] [place] [address] Assigned Pain Medication Provider 10/30/22 12/03/22 Michelle Guzman, DPM, Podiatry/Foot and Ankle Surgery [address] [place] [address] Assigned Musculoskeletal Provider 10/16/22 04/08/23 [place] [address] [place] [address] Assigned Pain Medication Provider 12/04/22 04/01/23 [place] [address] [place] [address] Nurse Practitioner Nurse Practitioner 01/17/23 01/17/23 Aubrey Jones MD [address] [place] [address] Cardiovascular Disease 03/28/23 Blanquita Morales Field Operations Farm Manager Diabetes Education 04/25/23 Aubrey Jones MD [address] [place] [address] Assigned Heart and Vascular Provider 05/07/23 documented as of this encounter
--- OUTSIDE RECORDS SUMMARY | 2023-08-03 10:17 | XMS_ITS | Encounter Summary ---
Author Name Unknown Organization [facility] Address [address] [place] [address]. [place] [address] Care Team Providers Care Industrial Millwright Name Role Phone Len Adhikari MD Primary Care Provider Jovany Gonzalez MD Unavailable CrissyStaci jeong PYTHON DJANGO DEVELOPER Unavailable [phone] Len Adhikari MD Unavailable Reanna Smith [address] Unavailable [phone] Jamshid Granados MD Unavailable Katiana Read MD Unavailable +[phone] Jovita Daly MD Unavailable [phone] Alexander López MD Unamarcelina lable Jese Doyle MD Unavailable +[phone] Roshni Nascimento RN Unavailable Unavailable Johana Groves [facility] Unavailable Kiet Swain MD Unavailable [phone] Winsome Pike APRN RASCHEL KNITTING MACHINE OPERATOR Unavailable +[phone] Tori Hines [facility] Unavailable Miranda Queen [facility] Unavailable Unavailable Winsome Pike APRN RASCHEL KNITTING MACHINE OPERATOR Unavailable Marisel Armando MD Unavailable Marisel Armando MD Unavailable Inderjit Ugalde MD Unavailable Wesley Barrett MD Unavailable [phone] EllaCharles Michele GEIGER Unavailable +[phone] Miranda Queen [facility] Unavailable Unavailable Leeann Rinaldi MD Unavailable Miranda Queen [facility] Unavailable Unavailable Dyan Fuentes MD Primary Care Provider [phone] Dyan Fuentes MD Unavailable +[phone] Katiana Read MD Unavailable [phone] Meme Singleton PhD Unavailable [phone] Deena Garza APRN RASCHEL KNITTING MACHINE OPERATOR Unavailable [phone] Mary Del Cid NP Unavailable + [phone] Elham Stack [facility] Unavailable [phone] Emerita Potter [facility] Unavailable [phone] Mary Del Cid NP Unavailable + [phone] Michelle Guzman DPM, Podiatry /Foot and Ankle Surgery Unavailable Dyan Fuentes MD Unavailable [phone] Mary Del Cid NP Unavailable + [phone] Aubrey Jones MD Unavailable [phone] Blanquita Morales Unavailable Unavailable Aubrey Jones MD Unavailable [phone] Encounter Details Date Type Department Care Team (Late st Contact Info) Description 02/21/2020 [facility] [address] [address] Roshni Nascimento, RN Social History [...] st Contact Info) Description 08/18/2023 3:00 PM SERVICE SHOP FOREMAN Office Visit [facility] [address] [facility] [address] [place] [address] Katiana Read MD [address] [place] [address] [place] [address] documented as of this encounter Visit Diagnoses Not on filedocumented in this encounter Additional Health Concerns Infection Onset Date Last Indicated Resolved Time Rule Out COVID-19 08/19/2020 08/19/2020 08/19/2020 4:40 PM SERVICE SHOP FOREMAN Rule Out C-difficile 02/27/2021 02/27/2021 021 6:10 [...] documented as of this encounter Care Teams Industrial Millwright Relationship Specialty Start Date End Date Len Adhikari MD PCP - General Family Practice 11/08/16 05/09/22 [place] [address] [place] [address] PCP - General Family Medicine 05/18/22 Jovany Gonzalez MD [facility] 6600 [facility] 605 [place], [place] [address] Orthopedics 02/15/17 Staci Woodward NP [facility] [address] [place], [place] 213[address] Nurse Practitioner Nurse Practitioner Psych/Mental Health 05/10/17 [place] [address] [facility] [place] [address] Assigned PCP 11/14/16 01/22/[address] [facility] [address] [place], [place] 57[address]337 Yard Switch Operator Dietitian, Registered 07/25/19 [place] [address] [facility] [address] [place], [place] 7[address] Assigned Musculoskeletal Provider 05/02/20 09/13/20 Katiana Read MD [address] [facility] 200 [place], [place] 200500 Assigned Endocrinology Provider 05/02/20 08/01/21 Jovita Daly MD [address] [place], [place] 887[address] Assigned Surgical Provider 05/02/20 10/04/20 Alexander López MD [address] [facility] 106 [place], [place] 27[address] Assigned Sleep Provider 05/02/20 11/15/20 Jese Doyle MD 909 [place] [address] Assigned Pulmonology Provider 05/02/20 04/11/21 Roshni Nascimento, RN Personal Advocate & Liaison (PAL) Family Medicine 08/18/20 Johana Groves, [facility] [address] [facility] [address] [place], [place] [phone] Pharmacist Pharmacist 08/28/20 11/26/20 Kiet Swain MD [address] [facility] [address] [place], [place] [address] Referring Physician Psychiatry 09/19/20 Winsome Pike APRN RASCHEL KNITTING MACHINE OPERATOR [address] [place] [address] 622874 Nurse Practitioner Psychiatry 09/19/20 Tori Hines, [facility] 2450 [place], [place] 8[address] Water/Wastewater Project Manager Water/Wastewater Project Manager - Clinical 09/19/20 Miranda Queen [facility] [address] [place] [address] Pharmacist Pharmacist 11/12/20 Winsome Pike APRN RASCHEL KNITTING MACHINE OPERATOR [address] [place] [address] 937704 Assigned Behavioral Health Provider 01/04/21 07/02/22 Marisel Armando MD [address] [place] [address] [phone] Gastroenterology 02/05/21 Marisel Armando MD [address] [place] [address] 516065 Assigned Gastroenterology Provider 03/08/21 12/24/22 Inderjit Ugalde MD [address] [address] Assigned Surgical Provider 02/15/21 08/20/22 Wesley Barrett MD [address] [place] [address] 96 [place], [place] 377[address] Assigned Neuroscience Provider 05/10/21 Charles Jaramillo PA-C [address] [facility] [address] [address] Assigned Musculoskeletal Provider 04/26/21 10/15/22 Miranda Queen [facility] [address] [place] [address] Assigned MTM Pharmacist 12/05/21 03/26/22 [place] [address] [place] [address] Assigned PCP 01/23/22 05/14/22 Miranda Queen [facility] [address] [place] [address] Assigned MTM Pharmacist 04/07/22 05/14/22 [place] [address] [place] [address] Assigned PCP 05/15/22 Katiana Read MD [address] [address] Assigned Endocrinology Provider 06/19/22 [place] [address] [place] 57[address]47 Assigned Behavioral Health Provider 07/03/22 12/31/22 Deena Garza APRN RASCHEL KNITTING MACHINE OPERATOR [address] [place] [address] Assigned Pain Medication Provider 07/19/22 10/29/22 Mayr Del Cid, RAFAEL [address] [place] [address] Nurse Practitioner Nurse Practitioner 10/18/22 Elham Stack, [facility] 3033 [place] [address] Pharmacist Pharmacist 10/19/22 Emerita [place], [facility] Clinic Inspector Mechanical Water/Wastewater Project Manager - Clinical 10/29/22 11/02/22 [place] [address] [place] [address] Assigned Pain Medication Provider 10/30/22 12/03/22 Michelle Guzman, DPM, Podiatry/Foot and Ankle Surgery [address] [place] [address] Assigned Musculoskeletal Provider 10/16/22 04/08/23 [place] [address] [place] [address] Assigned Pain Medication Provider 12/04/22 04/01/23 [place] [address] [place] [address] Nurse Practitioner Nurse Practitioner 01/17/23 01/17/23 Aubrey Jones MD [address] [place] [address] Cardiovascular Disease 03/28/23 Blanquita Morales Yard Switch Operator Diabetes Education 04/25/23 Aubrey Jones MD [address] [place] [address] Assigned Heart and Vascular Provider 05/07/23 documented as of this encounter
--- OUTSIDE RECORDS SUMMARY | 2023-08-03 10:17 | XMS_ITS | Encounter Summary ---
Author Name Unknown Organization [facility] Address [address] [place] [address]. [place] [address] Care Team Providers Care Verification Specialist Name Role Phone Len Adhikari MD Primary Care Provider Jovany Gonzalez MD Unavailable CrissyStaci jeong ADVERTISING PRODUCTION MANAGER Unavailable [phone] Len Adhikari MD Unavailable Reanna Smith [address] Unavailable Jamshid Granados MD Unavailable [phone] Katiana Read MD Unavailable +[phone] Jovita Daly MD Unavailable +[phone] Alexander López MD Unamarcelina lable Jese Doyle MD Unavailable +[phone] Roshni Nascimento RN Unavailable Unavailable Johana Groves [facility] Unavailable Kiet Swain MD Unavailable [phone] Winsome Pike APRN SHEEP KILLER Unavailable +[phone] Tori Hines [facility] Unavailable Miranda Queen [facility] Unavailable Unavailable Winsoem Pike APRN SHEEP KILLER Unavailable Marisel Armando MD Unavailable Marisel Armando MD Unavailable Inderjit Ugalde MD Unavailable [phone] Wesley Barrett MD Unavailable +[phone] EllaCharles Michele GEIGER Unavailable +[phone] Miranda Queen [facility] Unavailable Unavailable Leeann Rinaldi MD Unavailable Miranda Queen [facility] Unavailable Unavailable Dyan Fuentes MD Primary Care Provider [phone] Dyan Fuentes MD Unavailable [phone] Katiana Read MD Unavailable [phone] Meme Singleton PhD Unavailable +[phone] Deena Garza APRN SHEEP KILLER Unavailable +[phone] Mary Del Cid NP Unavailable + [phone] Elham Stack [facility] Unavailable Emerita Potter [facility] Unavailable [phone] Mary Del Cid NP Unavailable + [phone] Michelle Guzman DPM, Podiatry /Foot and Ankle Surgery Unavailable Dyan Fuentes MD Unavailable [phone] Mary Del Cid NP Unavailable [phone] Aubrey Jones MD Unavailable [phone] Blanquita Morales Unavailable Unavailable Aubrey Jones MD Unavailable [phone] Encounter Details Date Type Department Care Team (Late st Contact Info) Description 12/12/2019 [facility] [address] [facility] [address] [place] [address] Rachelle Benites CMA Social History [...] st Contact Info) Description 08/18/2023 3:00 PM CULTURED MARBLE PRODUCTS MAKER Office Visit [facility] [address] [facility] [address] [place] [address] Katiana Read MD [address] [place] [address] [address] [place] [address] documented as of this encounter Visit Diagnoses Not on filedocumented in this encounter Additional Health Concerns Infection Onset Date Last Indicated Resolved Time Rule Out COVID-19 08/19/2020 08/19/2020 08/19/2020 4:40 PM CULTURED MARBLE PRODUCTS MAKER Rule Out C-difficile 02/27/2021 02/27/2021 021 6:10 [...] documented as of this encounter Care Teams Verification Specialist Relationship Specialty Start Date End Date Len Adhikari MD PCP - General Family Practice 11/08/16 05/09/22 [place] [address] [place] [address] PCP - General Family Medicine 05/18/22 Jovany Gonzalez MD [facility] 6600 [facility] 605 [place], [place] 20[address] Orthopedics 02/15/17 Staci Woodward NP [facility] [address] [place], [place] [phone] Nurse Practitioner Nurse Practitioner Psych/Mental Health 05/10/17 [place] [address] [place] [address] Assigned PCP 11/14/16 01/22/[address] [facility] [address] [place] [place], [place] [address] Mortgage Accounting Clerk Dietitian, Registered 07/25/19 [place] [address] [facility] 300 [place], [place] [address] Assigned Musculoskeletal Provider 05/02/20 09/13/20 Katiana Read MD [address] [facility] 200 [place] [address] Assigned Endocrinology Provider 05/02/20 08/01/21 Jovita Daly MD [address] [place] [address] Assigned Surgical Provider 05/02/20 10/04/20 Alexander López MD [address] [facility] 106 [place], [place] [address] Assigned Sleep Provider 05/02/20 11/15/20 Jese Doyle MD 909 [place], [place] 565065 Assigned Pulmonology Provider 05/02/20 04/11/21 Roshni Nascimento, RN Personal Advocate & Liaison (PAL) Family Medicine 08/18/20 Johana Groves, [facility] 14[address] [facility] [address] [place], [place] [phone] Pharmacist Pharmacist 08/28/20 11/26/20 Kiet Swain MD [address] [place], [place] [address] Referring Physician Psychiatry 09/19/20 Winsome Pike APRN SHEEP KILLER [address] [place] [address] [phone] Nurse Practitioner Psychiatry 09/19/20 Tori Hines, [facility] 2450 [place], [place] 2218[address] Field Agronomist Field Agronomist - Clinical 09/19/20 Miranda Queen [facility] [address] [place] [address] Pharmacist Pharmacist 11/12/20 Winsome Pike APRN SHEEP KILLER [address] [place] [address] 338054 Assigned Behavioral Health Provider 01/04/21 07/02/22 Marisel Armando MD [address] [place] [address] 702065 Gastroenterology 02/05/21 Marisel Armando MD [address] [place] [address] 464605 Assigned Gastroenterology Provider 03/08/21 12/24/22 Inderjit Ugalde MD [address] [facility] 300 [place] [address] Assigned Surgical Provider 02/15/21 08/20/22 Wesley Barrett MD 420 [facility] 96 [place], [place] 45[address] Assigned Neuroscience Provider 05/10/21 Charles Jaramillo PA-C [address] 897655 Assigned Musculoskeletal Provider 04/26/21 10/15/22 Miranda Queen [facility] [address] [place] [address] Assigned MTM Pharmacist 12/05/21 03/26/22 [place] [address] [place] [address] Assigned PCP 01/23/22 05/14/22 Miranda Queen [facility] [address] [facility] [place] [place] [address] Assigned MTM Pharmacist 04/07/22 05/14/22 [place] [address] [place] [address] Assigned PCP 05/15/22 Katiana Read MD [address] 233870 Assigned Endocrinology Provider 06/19/22 [place] PhD [address] [place] 15[address]67 Assigned Behavioral Health Provider 07/03/22 12/31/22 Deena Garza, STORE CLERK CASHIER SHEEP KILLER [address] [place] [address] Assigned Pain Medication Provider 07/19/22 10/29/22 Mary Del Cid, RAFAEL [address] [place] [address] Nurse Practitioner Nurse Practitioner 10/18/22 Elham Stack, [facility] 3033 [facility] [place] [address] Pharmacist Pharmacist 10/19/22 Emerita Potter, [facility] Clinic Licensed Physical Therapy Assistant Field Agronomist - Clinical 10/29/22 11/02/22 [place] [address] [place] [address] Assigned Pain Medication Provider 10/30/22 12/03/22 Michelle Guzman, DPM, Podiatry/Foot and Ankle Surgery [address] [place] [address] Assigned Musculoskeletal Provider 10/16/22 04/08/23 [place] [address] [place] [address] Assigned Pain Medication Provider 12/04/22 04/01/23 Mary Del Cid, RAFAEL [address] [place] [address] Nurse Practitioner Nurse Practitioner 01/17/23 01/17/23 Aubrey Jones MD [address] [place] [address] Cardiovascular Disease 03/28/23 Blanquita Morales Mortgage Accounting Clerk Diabetes Education 04/25/23 Aubrey Jones MD [address] [place] [address] Assigned Heart and Vascular Provider 05/07/23 documented as of this encounter
--- OUTSIDE RECORDS SUMMARY | 2023-08-03 10:17 | XMS_ITS | Encounter Summary ---
Author Name Unknown Organization [facility] Address [address] [place] [address]. [place] [address] Care Team Providers Care Survey Rodman Name Role Phone Len Adhikari MD Primary Care Provider Jovany Gonzalez MD Unavailable CrissyStaci jeong TIRE TECHNICIAN Unavailable Len Adhkiari MD Unavailable Reanna Smith RD Unavailable [phone] Jamshid Granados MD Unavailable +[phone] Katiana Read MD Unavailable +[phone] Jovita Daly MD Unavailable +[phone] Alexander López MD Unamarcelina lable Jese Doyle MD Unavailable +[phone] Roshni Nascimento RN Unavailable Unavailable Johana Groves [facility] Unavailable Kiet Swain MD Unavailable Winsome Pike APRN RN SURGERY ICU Unavailable [phone] Tori Hines [facility] Unavailable Miranda Queen [facility] Unavailable Unavailable Winsome Pike APRN RN SURGERY ICU Unavailable Marisel Armando MD Unavailable Marisel Armando MD Unavailable Inderjit Ugalde MD Unavailable [phone] Wesley Barrett MD Unavailable +[phone] EllaCharles jimenez Michele GEIGER Unavailable +[phone] Miranda Queen [facility] Unavailable Unavailable Leeann Rinaldi MD Unavailable Miranda Queen [facility] Unavailable Unavailable Dyan Fuentes MD Primary Care Provider [phone] Dyan Fuentes MD Unavailable +[phone] Katiana Read MD Unavailable [phone] Meme Singleton PhD Unavailable +[phone] Deena Garza APRN RN SURGERY ICU Unavailable +[phone] Mary Del Cid NP Unavailable + [phone] Elham Stack [facility] Unavailable +[phone] Emerita Potter [facility] Unavailable [phone] Mary Del Cid NP Unavailable + [phone] Michelle Guzman DPM, Podiatry /Foot and Ankle Surgery Unavailable Dyan Fuentes MD Unavailable [phone] Mary Del Cid NP Unavailable + [phone] Aubrey Jones MD Unavailable [phone] Blanquita Morales Unavailable Unavailable Aubrey Jones MD Unavailable +[phone] Encounter Details Date Type Department Care Team (Late st Contact Info) Description 02/01/2020 [facility] [address] [address] [place] [address] [place] [address] Social History Tobacco Use Types Packs/Day Years [...] have Coronavirus / COVID-19? No / Unsure 01/28/2020 2:52 PM CDT documented as of this encounter Plan of Treatment Upcoming Encounters Date Type Department Care Team (Late st Contact Info) Description 08/18/2023 3:00 PM CARPENTER SUPERVISOR WOODEN SHIP Office Visit [facility] [address] [facility] [address] [place] [address] Katiana Read MD [address] [place] [address] [address] [place] [address] documented as of this encounter Visit Diagnoses Not on filedocumented in this encounter Additional Health Concerns Infection Onset Date Last Indicated Resolved Time Rule Out COVID-19 08/19/2020 08/19/2020 08/19/2020 4:40 PM CARPENTER SUPERVISOR WOODEN SHIP Rule Out C-difficile 02/27/2021 02/27/2021 021 6:10 [...] documented as of this encounter Care Teams Survey Rodman Relationship Specialty Start Date End Date Len Adhikari MD PCP - General Family Practice 11/08/16 05/09/22 [place] [address] [place] [address] PCP - General Family Medicine 05/18/22 Jovany Gonzalez MD [facility] 6600 [facility] [address] [place] [address] Orthopedics 02/15/17 Staci Woodward TIRE TECHNICIAN [place] [address] [place] [address] Nurse Practitioner Nurse Practitioner Psych/Mental Health 05/10/17 [place] [address] [facility] [place] [address] Assigned PCP 11/14/16 01/22/[address] [facility] [address] [place] [address] Agency Trainer Dietitian, Registered 07/25/19 [place] [address] [facility] [address] [place], [place] [address] Assigned Musculoskeletal Provider 05/02/20 09/13/20 Katiana Read MD [address] [place], [place] [address] Assigned Endocrinology Provider 05/02/20 08/01/21 Jovita Daly MD [address] [place], [place] [id number] Assigned Surgical Provider 05/02/20 10/04/20 Alexander López MD 606 [facility] 106 [place] [address] Assigned Sleep Provider 05/02/20 11/15/20 Jese Doyle MD 909 [place] [address] Assigned Pulmonology Provider 05/02/20 04/11/21 Roshni Nascimento RN Personal Advocate & Liaison (PAL) Family Medicine 08/18/20 Johana Groves [facility] [address] [place], [place] [phone] Pharmacist Pharmacist 08/28/20 11/26/20 Kiet Swain MD [address] [facility] NG15 [place], [place] [phone] Referring Physician Psychiatry 09/19/20 Winsome Pike APRN RN SURGERY ICU [address] [address] Nurse Practitioner Psychiatry 09/19/20 Tori Hines [facility] 2450 [place], [place] [phone] Sales Recruiting Coordinator Sales Recruiting Coordinator - Clinical 09/19/20 Miranda Queen [facility] [address] [place] [address] Pharmacist Pharmacist 11/12/20 Winsome Pike APRN RN SURGERY ICU [address] [phone] Assigned Behavioral Health Provider 01/04/21 07/02/22 Marisel Armando MD [address] [place] [phone] Gastroenterology 02/05/21 Marisel Armando MD 909 [place], [place] 557[address] Assigned Gastroenterology Provider 03/08/21 12/24/22 Inderjit Ugalde MD [address] [facility] 300 [place], [place] [address] Assigned Surgical Provider 02/15/21 08/20/22 Wesley Barrett MD 420 [facility] 96 [place], [place] [address] Assigned Neuroscience Provider 05/10/21 Cahrles Jaramillo PA-C [address] [address] Assigned Musculoskeletal Provider 04/26/21 10/15/22 [facility] [address] [place] [address] Assigned MTM Pharmacist 12/05/21 03/26/22 [place] [address] [place] [address] Assigned PCP 01/23/22 05/14/22 [facility] [address] [place] [address] Assigned MTM Pharmacist 04/07/22 05/14/22 [place] [address] [place] [address] Assigned PCP 05/15/22 Katiana Read MD [address] [place] [address] Assigned Endocrinology Provider 06/19/22 [place] [address] [place] [id number] Assigned Behavioral Health Provider 07/03/22 12/31/22 Deena Garza APRN RN SURGERY ICU [address] [place] [id number] Assigned Pain Medication Provider 07/19/22 10/29/22 Mary Del Cid, RAFAEL [address] [place] [id number] Nurse Practitioner Nurse Practitioner 10/18/22 Elham Stack, [facility] 3033 [place] [address] Pharmacist Pharmacist 10/19/22 Abbey Emerita M, [facility] Clinic Machine Straw Hat Presser Sales Recruiting Coordinator - Clinical 10/29/22 11/02/22 [place] [address] [address] [address] Assigned Pain Medication Provider 10/30/22 12/03/22 Michelle Guzman, DPM, Podiatry/Foot and Ankle Surgery [address] [place] [id number] Assigned Musculoskeletal Provider 10/16/22 04/08/23 [place] [address] [place] [id number] Assigned Pain Medication Provider 12/04/22 04/01/23 [place] [address] [place] [id number] Nurse Practitioner Nurse Practitioner 01/17/23 01/17/23 Aubrey Jones MD [address] [place] [address] Cardiovascular Disease 03/28/23 Blanquita Morales Agency Trainer Diabetes Education 04/25/23 Aubrey Jones MD [address] [place] [address] Assigned Heart and Vascular Provider 05/07/23 documented as of this encounter
--- OUTSIDE RECORDS SUMMARY | 2023-08-03 10:17 | XMS_ITS | Encounter Summary ---
Author Name Unknown Organization [facility] Address [address] [place] [address]. [place] [address] Care Team Providers Care Manager Of Radiology Name Role Phone Len Adhikari MD Primary Care Provider [phone] Jovany Gonzalez MD Unavailable CrissyStaci jeong NUTRITION TEACHER Unavailable [phone] Len Adhikari MD Unavailable [phone] Unavailable Jamshid Granados MD Unavailable Katiana Read MD Unavailable [phone] Jovita Daly MD Unavailable [phone] Alexander Lóepz MD Unamarcelina lable Jese Doyle MD Unavailable [phone] Roshni Nascimento RN Unavailable Unavailable Johana Groves [facility] Unavailable Kiet Swain MD Unavailable [phone] Winsome Pike APRN DOUBLE BOTTOM DRIVER Unavailable +[phone] Tori Hines [facility] Unavailable Miranda Queen [facility] Unavailable Unavailable Winsome Pike APRN DOUBLE BOTTOM DRIVER Unavailable Marisel Armando MD Unavailable Marisel Armando MD Unavailable Inderjit Ugalde MD Unavailable [phone] Wesley Barrett MD Unavailable +[phone] EllaCharles jimenez Michele GEIGER Unavailable +[phone] Miranda Queen [facility] Unavailable Unavailable Leeann Rinaldi MD Unavailable Miranda Queen [facility] Unavailable Unavailable Dyan Fuentes MD Primary Care Provider [phone] Dyan Fuentes MD Unavailable [phone] Katiana Read MD Unavailable [phone] Meme Singleton PhD Unavailable [phone] Deena Garza APRN DOUBLE BOTTOM DRIVER Unavailable +[phone] Mary Del Cid NP Unavailable + [phone] Elham Stack [facility] Unavailable [phone] Emerita Potter [facility] Unavailable +[phone] Mary Del Cid NP Unavailable + [phone] [...] Care Team (Late st Contact Info) Description 12/24/2019 [facility] [address] [place] [address] [place] [address] [place] [address] Medication Refill Social History Tobacco Use Types [...] encounter Miscellaneous Notes * Telephone Encounter - Jacque Pagan PA-C - 12/25/2019 10:06 AM CDT I'm not sure about this. Not seen pt before and on a benzo * Telephone Encounter - Katiana Read MD - 12/25/2019 9:53 AM CDT Please route to prescribing provider. * Telephone Encounter - Katiana Raed MD - 12/25/2019 9:53 AM CDT Please route to prescribing provider. documented in this encounter Plan of Treatment Upcoming Encounters Date Type Department Care Team (Late st Contact Info) Description 08/18/2023 3:00 PM METALLIC YARN SLITTING MACHINE OPERATOR Office Visit [facility] [address] [place] [address] Katiana Read MD [address] [place], [place] [address] documented as of this encounter Visit Diagnoses Diagnosis Chronic insomnia Insomnia, unspecified documented in this encounter Additional Health Concerns Infection Onset Date Last Indicated Resolved Time Rule Out COVID-19 08/19/2020 08/19/2020 08/19/2020 4:40 PM METALLIC YARN SLITTING MACHINE OPERATOR Rule Out C-difficile 02/27/2021 02/27/2021 021 [...] of this encounter Care Teams Manager Of Radiology Relationship Specialty Start Date End Date Len Adhikari MD PCP - General Family Practice 11/08/16 05/09/22 [place] [address] [place] [address] PCP - General Family Medicine 05/18/22 Jovany Gonzalez MD [facility] 6600 [facility] 605 [place] [address] Orthopedics 02/15/17 Staci Woodward NUTRITION TEACHER [facility] [address] [place] [address] Nurse Practitioner Nurse Practitioner Psych/Mental Health 05/10/17 [place] [address] [place] [address] Assigned PCP 11/14/16 01/22/[address] [facility] [address] [place] [address] Frozen Pie Maker Dietitian, Registered 07/25/19 [place] [address] [facility] [address] [place], [place] [address] Assigned Musculoskeletal Provider 05/02/20 09/13/20 Katiana Read MD [address] 200 [place], [place] [address] Assigned Endocrinology Provider 05/02/20 08/01/21 Jovita Daly MD [address] [place], [place] [address] Assigned Surgical Provider 05/02/20 10/04/20 Alexander López MD 606 [facility] 106 [place], [place] [address] Assigned Sleep Provider 05/02/20 11/15/20 Jese Doyle MD 909 [place] [address] Assigned Pulmonology Provider 05/02/20 04/11/21 Roshni Nascimento, RN Personal Advocate & Liaison (PAL) Family Medicine 08/18/20 Johana Groves, [facility] [address] [place] [address] Pharmacist Pharmacist 08/28/20 11/26/20 Kiet Swain MD [address] [place] [address] 428964 Referring Physician Psychiatry 09/19/20 Winsome Pike APRN DOUBLE BOTTOM DRIVER [address] [place] [address] 583664 Nurse Practitioner Psychiatry 09/19/20 Tori Hines, [facility] [address] [place] [address] 985214 Cardiovascular Invasive Specialist Cardiovascular Invasive Specialist - Clinical 09/19/20 [facility] [address] [place] [address] Pharmacist Pharmacist 11/12/20 Winsome Pike APRN DOUBLE BOTTOM DRIVER [address] [place] [address] 878124 Assigned Behavioral Health Provider 01/04/21 07/02/22 Marisel Armando MD [address] [place] [address] 454435 Gastroenterology 02/05/21 Marisel Armando MD [address] [place] [address] [phone] Assigned Gastroenterology Provider 03/08/21 12/24/22 Inderjit Ugalde MD [address] [place] [address] Assigned Surgical Provider 02/15/21 08/20/22 Wesley Barrett MD 420 [facility] 96 [place] [address] Assigned Neuroscience Provider 05/10/21 Charles Jaramillo PA-C 6545 [facility] 450 [place] [address] Assigned Musculoskeletal Provider 04/26/21 10/15/22 Miranda Queen [facility] [address] [place] [address] Assigned MTM Pharmacist 12/05/21 03/26/22 [place] [address] [place] [address] Assigned PCP 01/23/22 05/14/22 Miranda Queen [facility] [address] [place] [address] Assigned MTM Pharmacist 04/07/22 05/14/22 [place] [address] [place] [address] Assigned PCP 05/15/22 Katiana Read MD [address] [facility] 200 [place] [address] Assigned Endocrinology Provider 06/19/22 [place] [address] [place] [address] Assigned Behavioral Health Provider 07/03/22 12/31/22 Deena Garza APRN CNP [address] [place] [address] Assigned Pain Medication Provider 07/19/22 10/29/22 [place] [address] [place] [address] Nurse Practitioner Nurse Practitioner 10/18/22 Elham Stack, [facility] 3033 [place] [address] Pharmacist Pharmacist 10/19/22 Emerita Potter, [facility] Clinic Drop Press Hand Cardiovascular Invasive Specialist - Clinical 10/29/22 11/02/22 [place] [address] [place] [address] Assigned Pain Medication Provider 10/30/22 12/03/22 Michelle Guzman DPM, Podiatry/Foot and Ankle Surgery [address] [place] [address] Assigned Musculoskeletal Provider 10/16/22 04/08/23 [place] [address] [place] [address] Assigned Pain Medication Provider 12/04/22 04/01/23 [place] [address] [address] [place] [place] [address] Nurse Practitioner Nurse Practitioner 01/17/23 01/17/23 Aubrey Jones MD [address] [place] [address] Cardiovascular Disease 03/28/23 Blanquita Morales Frozen Pie Maker Diabetes Education 04/25/23 Aubrey Jones MD [address] [place] [address] Assigned Heart and Vascular Provider 05/07/23 documented as of this encounter
--- OUTSIDE RECORDS SUMMARY | 2023-08-03 10:17 | XMS_ITS | Encounter Summary ---
Author Name Unknown Organization [facility] Address [address] [place] [address]. [place] [address] Care Team Providers Care Web Systems Developer Name Role Phone Len Adhikari MD Primary Care Provider Jovany Gonzalez MD Unavailable CrissyStaci jeong ASSOCIATE DEAN OF STUDENTS Unavailable [phone] eLn Adhikari MD Unavailable Reanna Smith RD Unavailable [phone] Jamshid Granados MD Unavailable Katiana Read MD Unavailable [phone] Jovita Daly MD Unavailable +[phone] Alexander López MD Unamarcelina lable Jese Doyle MD Unavailable +[phone] Roshni Nascimento RN Unavailable Unavailable Johana Groves [facility] Unavailable Kiet Swain MD Unavailable [phone] Winsome Pike APRN WINCHER Unavailable +[phone] Tori Hines [facility] Unavailable Miranda Queen [facility] Unavailable Unavailable Winsome Pike APRN WINCHER Unavailable Marisel Armando MD Unavailable Marisel Armando MD Unavailable Inderjit Ugalde MD Unavailable [phone] Wesley Barrett MD Unavailable +[phone] EllaCharles Michele GEIGER Unavailable +[phone] Miranda Queen [facility] Unavailable Unavailable Leeann Rinaldi MD Unavailable Miranda Queen [facility] Unavailable Unavailable Dyan Fuentes MD Primary Care Provider [phone] Dyan Fuentes MD Unavailable [phone] Katiana Read MD Unavailable [phone] Meme Singleton PhD Unavailable [phone] Deena Garza APRN WINCHER Unavailable +[phone] Mary Del Cid NP Unavailable + [phone] Elham Stack [facility] Unavailable Emerita Potter [facility] Unavailable [phone] Mary Del Cid NP Unavailable + [phone] Michelle Guzman DPM, Podiatry /Foot and Ankle Surgery Unavailable Dyan Fuentes MD Unavailable [phone] Mary Del Cid NP Unavailable [phone] Aubrey Jones MD Unavailable [phone] Blanquita Morales Unavailable Unavailable Aubrey Jones MD Unavailable +[phone] Encounter Details Date Type Department Care Team (Late st Contact Info) Description 12/25/2019 [facility] Medical Advice [address] [place] [address] Rachelle Benites, DUCT LAYER SUPERVISOR Social History Tobacco Use Types Packs/Day Years [...] st Contact Info) Description 08/18/2023 3:00 PM TREADLE CUT OFF SAW OPERATOR Office Visit [facility] [address] [facility] [address] [place] [address] Katiana Raed MD [address] [address] [place] [address] documented as of this encounter Visit Diagnoses Not on filedocumented in this encounter Additional Health Concerns Infection Onset Date Last Indicated Resolved Time Rule Out COVID-19 08/19/2020 08/19/2020 08/19/2020 4:40 PM TREADLE CUT OFF SAW OPERATOR Rule Out C-difficile 02/27/2021 02/27/2021 021 [...] as of this encounter Care Teams Web Systems Developer Relationship Specialty Start Date End Date Len Adhikari MD PCP - General Family Practice 11/08/16 05/09/22 [place] [address] [place] [address] PCP - General Family Medicine 05/18/22 Jovany Gonzalez MD [facility] 6600 [facility] 605 [place], [place] [address] Orthopedics 02/15/17 Staci Woodward NP [place] [address] [place] [address] Nurse Practitioner Nurse Practitioner Psych/Mental Health 05/10/17 [place] [address] [facility] [place] [address] Assigned PCP 11/14/16 01/22/[address] [place] [address] [place] [address] Technical System Analyst Dietitian, Registered 07/25/19 [place] [address] [facility] 300 [place], [place] [address] Assigned Musculoskeletal Provider 05/02/20 09/13/20 Katiana Read MD [address] [place] [address] 200 [place] [address] Assigned Endocrinology Provider 05/02/20 08/01/21 Jovita Daly MD [address] [place] [address] Assigned Surgical Provider 05/02/20 10/04/20 Alexander López MD 606 [address] [facility] 106 [place], [place] [address] Assigned Sleep Provider 05/02/20 11/15/20 Jese Doyle MD 909 [place], [place] 464[address] Assigned Pulmonology Provider 05/02/20 04/11/21 Roshni Nascimento, RN Personal Advocate & Liaison (PAL) Family Medicine 08/18/20 Johana Groves, [facility] [address] [facility] [place] [address] Pharmacist Pharmacist 08/28/20 11/26/20 Kiet Swain MD [facility] NG15 [place], [place] [address] Referring Physician Psychiatry 09/19/20 Winsome Pike, VID[facility]CHER [address] [place] [address] Nurse Practitioner Psychiatry 09/19/20 Tori Hines, [facility] 2450 [place] [address] Skidway Man Skidway Man - Clinical 09/19/20 Miranda Queen [facility] [address] [place] [address] Pharmacist Pharmacist 11/12/20 Winsome Pike APRN CNP [address] [address] Assigned Behavioral Health Provider 01/04/21 07/02/22 Marisel Armando MD [address] [place] [address] Gastroenterology 02/05/21 Marisel Armando MD [address] [place] [address] Assigned Gastroenterology Provider 03/08/21 12/24/22 Inderjit Ugalde MD [address] [address] Assigned Surgical Provider 02/15/21 08/20/22 Wesley Barrett MD [address] [place] [address] Assigned Neuroscience Provider 05/10/21 Charles Jaramillo PA-C [address] [address] Assigned Musculoskeletal Provider 04/26/21 10/15/22 Miranda Queen [facility] [address] [place] [address] Assigned MTM Pharmacist 12/05/21 03/26/22 [place] [address] [place] [address] Assigned PCP 01/23/22 05/14/22 Miranda Queen, [facility] [address] [place] [address] Assigned MTM Pharmacist 04/07/22 05/14/22 [place] [address] [place] [address] Assigned PCP 05/15/22 Katiana Read MD [address] [address] Assigned Endocrinology Provider 06/19/22 [place]e [place] PhD [address] [place] 652847 Assigned Behavioral Health Provider 07/03/22 12/31/22 Deena Garza APRN [facility] [address] [place] 723057 Assigned Pain Medication Provider 07/19/22 10/29/22 Mary Del Cid, RAFAEL [address] [place] 3[address]17 Nurse Practitioner Nurse Practitioner 10/18/22 Elham Stack, [facility] [address] [facility] [place] [address] Pharmacist Pharmacist 10/19/22 Emerita Potter, [facility] Clinic Research Greenhouse Supervisor Skidway Man - Clinical 10/29/22 11/02/22 Mary Del Cid, RAFAEL [address] [place] [address] Assigned Pain Medication Provider 10/30/22 12/03/22 Michelle Guzman DPM, Podiatry/Foot and Ankle Surgery [address] [place] [address] Assigned Musculoskeletal Provider 10/16/22 04/08/23 [place] [address] [place] [address] Assigned Pain Medication Provider 12/04/22 04/01/23 [place] [address] [address] [address] Nurse Practitioner Nurse Practitioner 01/17/23 01/17/23 Aubrey Jones MD [address] [place] [address] Cardiovascular Disease 03/28/23 Blanquita Morales Technical System Analyst Diabetes Education 04/25/23 Aubrey Jones MD [address] [place] [address] Assigned Heart and Vascular Provider 05/07/23 documented as of this encounter
--- OUTSIDE RECORDS SUMMARY | 2023-08-03 10:18 | XMS_ITS | Encounter Summary ---
Author Name Unknown Organization [place] Address [address] [place] [address]. [place] [address] Care Team Providers Care Safety Relief Valve Technician Name Role Phone Len Adhikari MD Primary Care Provider Jovany Gonzalez MD Unavailable CrisysStaci jeong COUNTER FORMER Unavailable [phone] Len Adhikari MD Unavailable [phone] Unavailable [phone] Jamshid Granados MD Unavailable +[phone] Katiana Read MD Unavailable [phone] Jovita Daly MD Unavailable +[phone] Alexander López MD Unamarcelina lable Jese Doyle MD Unavailable [phone] Roshni Nascimento RN Unavailable Unavailable Johana Groves [facility] Unavailable Kiet Swain MD Unavailable [phone] Winsome Pike APRN CHIEF ORTHOPTIST Unavailable +[phone] Tori Hines [facility] Unavailable Miranda Queen [facility] Unavailable Unavailable Winsome Pike APRN CHIEF ORTHOPTIST Unavailable Marisel Armando MD Unavailable Marisel Armando MD Unavailable Inderjit Ugalde MD Unavailable [phone] Wesley Barrett MD Unavailable +[phone] EllaCharles Michele GEIGER Unavailable +[phone] Miranda Queen [facility] Unavailable Unavailable Leeann Rinaldi MD Unavailable Miranda Queen [facility] Unavailable Unavailable Dyan Fuentes MD Primary Care Provider [phone] Dyan Fuentes MD Unavailable [phone] Katiana Read MD Unavailable [phone] Meme Singleton PhD Unavailable [phone] Deena Garza APRN CHIEF ORTHOPTIST Unavailable +[phone] Mary Del Cid NP Unavailable + [phone] Elham Stack [facility] Unavailable Emerita Potter [facility] Unavailable [phone] Mary Del Cid NP Unavailable + [phone] Michelle Guzman DPM, Podiatry /Foot and Ankle Surgery Unavailable Dyan Fuentes MD Unavailable [phone] Mary Del Cid NP Unavailable [phone] Aubrey Jones MD Unavailable [phone] Blanquita Morales Unavailable Unavailable Aubrey Jones MD Unavailable [phone] Encounter Details Date Type Department Care Team (Late st Contact Info) Description 11/15/2019 [facility] [address] [facility] [address] [place] [address] Rachelle Benites, [facility] Social History Tobacco Use Types Packs/Day Years [...] st Contact Info) Description 08/18/2023 3:00 PM COOKING CHEF Office Visit [facility] [address] [facility] [address] [place] [phone] Katiana Read MD [address] [address] [place] [address] documented as of this encounter Visit Diagnoses Not on filedocumented in this encounter Additional Health Concerns Infection Onset Date Last Indicated Resolved Time Rule Out COVID-19 08/19/2020 08/19/2020 08/19/2020 4:40 PM COOKING CHEF Rule Out C-difficile 02/27/2021 02/27/2021 021 6:10 [...] documented as of this encounter Care Teams Safety Relief Valve Technician Relationship Specialty Start Date End Date Len Adhikari MD PCP - General Family Practice 11/08/16 05/09/22 [place] [address] [place] [address] PCP - General Family Medicine 05/18/22 Jovany Gonzalez MD [facility] [address] [facility] 605 [place] [address] Orthopedics 02/15/17 Staci Woodward NP [place] [address] [place] [address] Nurse Practitioner Nurse Practitioner Psych/Mental Health 05/10/17 [place] [address] [facility] [place] [address] Assigned PCP 11/14/16 01/22/[address] [facility] [address] [place] [address] Reception Agent Dietitian, Registered 07/25/19 [place] [address] [facility] [address] [place] [address] Assigned Musculoskeletal Provider 05/02/20 09/13/20 Katiana Read MD [address] [place] [address] 200 [place] [address] Assigned Endocrinology Provider 05/02/20 08/01/21 Jovita Daly MD [address] [place] [address] Assigned Surgical Provider 05/02/20 10/04/20 Alexander López MD [address] [facility] 106 [place], [place] [address] Assigned Sleep Provider 05/02/20 11/15/20 Jese Doyle MD [address] [place], [place] [address] Assigned Pulmonology Provider 05/02/20 04/11/21 Roshni Nascimento, RN Personal Advocate & Liaison (PAL) Family Medicine 08/18/20 Johana Groves, [facility] [facility] [place] [address] Pharmacist Pharmacist 08/28/20 11/26/20 Kiet Swain MD [address] [place] [address] [address] [place], [place] [id number] Referring Physician Psychiatry 09/19/20 Winsome Pike APRN CHIEF ORTHOPTIST [address] [place] [address] Nurse Practitioner Psychiatry 09/19/20 Tori Hines, [facility] [address] [place] [address] Transit Police Officer Transit Police Officer - Clinical 09/19/20 Miranda Queen [facility] [address] [place] [address] Pharmacist Pharmacist 11/12/20 Winsome Pike APRN CNP [address] [address] Assigned Behavioral Health Provider 01/04/21 07/02/22 Marisel Armando MD [address] [place] [address] [id number] Gastroenterology 02/05/21 Marisel Armando MD [address] [place] [address] 947935 Assigned Gastroenterology Provider 03/08/21 12/24/22 Inderjit Ugalde MD [address] [facility] 300 [place] [address] Assigned Surgical Provider 02/15/21 08/20/22 Wesley Barrett MD [address] [facility] 96 [place] [address] Assigned Neuroscience Provider 05/10/21 Charles Jaramillo PA-C [address] [address] Assigned Musculoskeletal Provider 04/26/21 10/15/22 Miranda Queen [facility] [address] [facility] [place] [address] Assigned MTM Pharmacist 12/05/21 03/26/22 [place] [address] [place] [address] Assigned PCP 01/23/22 05/14/22 Miranda Queen, [facility] [address] [facility] [place] [address] Assigned MTM Pharmacist 04/07/22 05/14/22 [place] [address] [place] [address] Assigned PCP 05/15/22 Katiana Read MD [address] 524790 Assigned Endocrinology Provider 06/19/22 [place] PhD [address] [place] 783977 Assigned Behavioral Health Provider 07/03/22 12/31/22 Deena Garza, [place]ANG[place] CHIEF ORTHOPTIST [address] [place] 631027 Assigned Pain Medication Provider 07/19/22 10/29/22 Mary Del Cid, [place] [address] [facility] [address] 980967 Nurse Practitioner Nurse Practitioner 10/18/22 Elham Stack, [facility] [address] [place] [address] Pharmacist Pharmacist 10/19/22 Emerita Potter, [facility] Clinic Meal Temperer Transit Police Officer - Clinical 10/29/22 11/02/22 [place] [address] [place] [address] Assigned Pain Medication Provider 10/30/22 12/03/22 Michelle Guzman, DPM, Podiatry/Foot and Ankle Surgery [address] [place] [place] [address] Assigned Musculoskeletal Provider 10/16/22 04/08/23 [place] [address] [place] [address] Assigned Pain Medication Provider 12/04/22 04/01/23 [place] [address] [address] [place] [address] Nurse Practitioner Nurse Practitioner 01/17/23 01/17/23 Aubrey Jones MD [address] [place] [address] Cardiovascular Disease 03/28/23 Blanquita Morales Reception Agent Diabetes Education 04/25/23 Aubrey Jones MD [address] [place] [address] Assigned Heart and Vascular Provider 05/07/23 documented as of this encounter
--- OUTSIDE RECORDS SUMMARY | 2023-08-03 10:18 | XMS_ITS | Encounter Summary ---
Author Name Unknown Organization [place] Address [address] [place] [address]. [place] [address] Care Team Providers Care Heel Pricker Name Role Phone Len Adhikari MD Primary Care Provider Jovany Gonzalez MD Unavailable CrissyStaci jeong FEED MANAGER Unavailable [phone] Len Adhikari MD Unavailable Reanna Smith [address] Unavailable [phone] Jamshid Granados MD Unavailable [phone] Katiana Read MD Unavailable [phone] Jovita Daly MD Unavailable [phone] Alexander López MD Unamarcelina lable Jese Doyle MD Unavailable [phone] Roshni Nascimento RN Unavailable Unavailable Johana Groves [facility] Unavailable Kiet Swain MD Unavailable [phone] Winsome Pike APRN KIER BOILER Unavailable +[phone] Tori Hines [facility] Unavailable Miranda Queen [facility] Unavailable Unavailable Winsome Pike APRN KIER BOILER Unavailable Marisel Armando MD Unavailable Marisel Armando MD Unavailable Inderjit Ugalde MD Unavailable [phone] Wesley Barrett MD Unavailable [phone] EllaCharles Michele GEIGER Unavailable +[phone] Miranda Queen [facility] Unavailable Unavailable Leeann Rinaldi MD Unavailable Miranda Queen [facility] Unavailable Unavailable Dyan Fuentes MD Primary Care Provider [phone] Dyan Fuentes MD Unavailable [phone] Katiana Read MD Unavailable [phone] Meme Singleton PhD Unavailable [phone] Deena Garza APRN KIER BOILER Unavailable +[phone] Mary Del Cid NP Unavailable + [phone] Elham Stack [facility] Unavailable [phone] Emerita Potter [facility] Unavailable [phone] Mary Del Cid NP Unavailable + [phone] Michelle Guzman DPM, Podiatry /Foot and Ankle Surgery Unavailable Dyan Fuentes MD Unavailable [phone] Mary Del Cid NP Unavailable + [phone] Aubrey Jones MD Unavailable [phone] Blanquita Morales Unavailable Unavailable Aubrey Jones MD Unavailable [phone] Encounter Details Date Type Department Care Team (Late st Contact Info) Description 09/06/2019 [facility] [address] [address] PusalaAlexander saha MD [address] [place] [address] Social History Tobacco Use Types Packs/Day Years [...] st Contact Info) Description 08/18/2023 3:00 PM CURB AND GUTTER LABORER Office Visit [facility] [address] [facility] [address] [place] [address] Katiana Read MD [address] [facility] 200 [place], [place] [address] documented as of this encounter Visit Diagnoses Not on filedocumented in this encounter Additional Health Concerns Infection Onset Date Last Indicated Resolved Time Rule Out COVID-19 08/19/2020 08/19/2020 08/19/2020 4:40 PM CURB AND GUTTER LABORER Rule Out C-difficile 02/27/2021 02/27/2021 021 6:10 [...] documented as of this encounter Care Teams Heel Pricker Relationship Specialty Start Date End Date Len Adhikari MD PCP - General Family Practice 11/08/16 05/09/22 [place] [address] [place] [address] PCP - General Family Medicine 05/18/22 Jovany Gonzalez MD [facility] [address] [facility] 605 [place], [place] [address] Orthopedics 02/15/17 Staci Woodward NP [facility] [address] [place], [place] [address] Nurse Practitioner Nurse Practitioner Psych/Mental Health 05/10/17 [place] [address] [place] [address] Assigned PCP 11/14/16 01/22/[address] [facility] [address] [place] [address] Fisher Purse Seine Dietitian, Registered 07/25/19 [place] [address] [facility] 300 [place], [place] [address] Assigned Musculoskeletal Provider 05/02/20 09/13/20 Katiana Read MD [address] [facility] 200 [place], [place] [address] Assigned Endocrinology Provider 05/02/20 08/01/21 Jovita Daly MD [address] [place], [place] [address] Assigned Surgical Provider 05/02/20 10/04/20 Alexander López MD [address] [facility] 106 [place], [place] [address] Assigned Sleep Provider 05/02/20 11/15/20 Jese Doyle MD 9[address] [place], [place] [address] Assigned Pulmonology Provider 05/02/20 04/11/21 Roshni Nascimento, RN Personal Advocate & Liaison (PAL) Family Medicine 08/18/20 Johana Groves, [facility] [address] [place], [place] [phone] Pharmacist Pharmacist 08/28/20 11/26/20 Kiet Swain MD [address] [facility] [address] [place], [place] [address] Referring Physician Psychiatry 09/19/20 Winsome Pike APRN KIER BOILER [address] [place] [address] 215674 Nurse Practitioner Psychiatry 09/19/20 Tori Hines, [facility] 2450 [place] [address] Cable Engineer Outside Plant Cable Engineer Outside Plant - Clinical 09/19/20 Miranda Queen [facility] [address] [place] [address] Pharmacist Pharmacist 11/12/20 Winsome Pike APRN KIER BOILER [address] [place] [address] 990434 Assigned Behavioral Health Provider 01/04/21 07/02/22 Marisel Armando MD [address] [place] [address] [id number] Gastroenterology 02/05/21 Marisel Armando MD [address] [place] [address] 643055 Assigned Gastroenterology Provider 03/08/21 12/24/22 Inderjit Ugalde MD [address] [id number] Assigned Surgical Provider 02/15/21 08/20/22 Wesley Barrett MD 420 [facility] 96 [place], [place] [address] Assigned Neuroscience Provider 05/10/21 Charles Jaramillo PA-C [address] [facility] [address] 58[address]85 Assigned Musculoskeletal Provider 04/26/21 10/15/22 Miranda Queen [facility] [address] [place] [address] Assigned MTM Pharmacist 12/05/21 03/26/22 [place] [address] [place] [address] Assigned PCP 01/23/22 05/14/22 Miranda Queen [facility] [address] [place] [address] Assigned MTM Pharmacist 04/07/22 05/14/22 [place] [address] [place] [address] Assigned PCP 05/15/22 Katiana Read MD [address] [place] [address] Assigned Endocrinology Provider 06/19/22 [place] [address] [place] [address] Assigned Behavioral Health Provider 07/03/22 12/31/22 Deena Garza APRN KIER BOILER [address] [place] [address] Assigned Pain Medication Provider 07/19/22 10/29/22 Mary Del Cid, RAFAEL [address] [place] [address] Nurse Practitioner Nurse Practitioner 10/18/22 Elham Stack, [facility] [address] [place] [address] Pharmacist Pharmacist 10/19/22 Emerita Potter, [facility] Clinic Manager Progressive Care Cable Engineer Outside Plant - Clinical 10/29/22 11/02/22 [place] [address] [place] [address] Assigned Pain Medication Provider 10/30/22 12/03/22 Michelle Guzman, DPM, Podiatry/Foot and Ankle Surgery [address] [place] [address] Assigned Musculoskeletal Provider 10/16/22 04/08/23 [place] [address] [place] [address] Assigned Pain Medication Provider 12/04/22 04/01/23 [place] [address] [place] [address] Nurse Practitioner Nurse Practitioner 01/17/23 01/17/23 Aubrey Jones MD [address] [place] [address] Cardiovascular Disease 03/28/23 Blanquita Morales Fisher Purse Seine Diabetes Education 04/25/23 Aubrey Jones MD [address] [place] [address] Assigned Heart and Vascular Provider 05/07/23 documented as of this encounter
--- OUTSIDE RECORDS SUMMARY | 2023-08-03 10:18 | XMS_ITS | Encounter Summary ---
Author Name Unknown Organization [facility] Address [address] [place] [address]. [place] [address] Care Team Providers Care Roller Skate Repairer Name Role Phone Len Adhikari MD Primary Care Provider [phone] Jovany Gonzalez MD Unavailable CrissyStaci jeong AMMONIA OPERATOR Unavailable [phone] Len Adhikari MD Unavailable [phone] Unavailable Jamshid Granados MD Unavailable Katiana Read MD Unavailable [phone] Jovita Daly MD Unavailable [phone] Alexander López MD Unamarcelina lable Jese Doyle MD Unavailable [phone] Roshni Nascimento RN Unavailable Unavailable Johana Groves [facility] Unavailable +[phone] Kiet Swain MD Unavailable [phone] Winsome Pike APRN RECREATIONAL ASSISTANT Unavailable +[phone] Toir Hines [facility] Unavailable Miranda Queen [facility] Unavailable Unavailable Winsome Pike APRN RECREATIONAL ASSISTANT Unavailable Marisel Armando MD Unavailable Marisel Armando MD Unavailable Inderjit Ugalde MD Unavailable [phone] Wesley Barrett MD Unavailable +[phone] EllaCharles jimenez Michele GEIGER Unavailable [phone] Miranda Queen [facility] Unavailable Unavailable Leeann Rinaldi MD Unavailable Miranda Queen [facility] Unavailable Unavailable Dyan Fuentes MD Primary Care Provider [phone] Dyan Fuentes MD Unavailable [phone] Katiana Read MD Unavailable [phone] Meme Singleton PhD Unavailable [phone] Deena Garza APRN [facility] Unavailable +[phone] Mary Del Cid NP Unavailable + [phone] Elham Stack [facility] Unavailable +[phone] Emerita Potter [facility] Unavailable [phone] Mary Del Cid NP Unavailable + [phone] Michelle Guzman DPM, Podiatry /Foot and Ankle Surgery Unavailable Dyan Fuentes MD Unavailable [phone] Mary Del Cid NP Unavailable + [phone] Aubrey Jones MD Unavailable [phone] Blanquita Morales Unavailable Unavailable Aubrey Jones MD Unavailable [phone] Reason for Referral * Consultation (Routine) - Closed Specialty Diagnoses / Procedures Referred By Jose R kelly Referred To Contact Diagnoses [place] [address] [place] [address] [facility] [address] [place] [phone] Referral ID Status Reason Start Date Expiration Date Visits Re quested Visits Authorized [id number] Closed 09/25/2019 09/24/2020 1 1 Comments Your provider has referred you to: [facility]: [facility] [place] [email or web address] Please be aware that coverage of these services is subject to the terms and limitations of your health insurance plan. Call member services at your health plan with any benefit or coverage questions. Please bring the following with you to your appointment: (1) Any X-Rays, CTs or MRIs which have been performed. Contact the facility where they were done to arrange for oyster picker prior to your scheduled appointment. (2) List of current medications (3) This referral request (4) Any documents/labs given to you for this referral Encounter Details Date Type Department Care Team (Late st Contact Info) Description 09/24/2019 [facility] Medical Advice [address] [address] Criselda Ma APRN RECREATIONAL ASSISTANT Pulmonary nodules (Primary Dx) Social History Tobacco Use Types [...] have Coronavirus / COVID-19? No / Unsure 09/26/2019 3:34 PM CDT documented as of this encounter Miscellaneous Notes * Telephone Encounter - Len Adhikari MD - 09/25/2019 12:40 PM CDT Referral placed for lung nodule clinic. * Telephone Encounter - Criselda Ma RN - 09/24/2019 1:00 PM CDT Please advise on thoracic surgeon for pulmonary nodules. Criselda Ma RN, BSN documented in this encounter Plan of Treatment Upcoming Encounters Date Type Department Care Team (Late st Contact Info) Description 08/18/2023 3:00 PM TEMPLATE REPRODUCTION TECHNICIAN Office Visit [facility] [address] [facility] [address] [place] [address] Katiana Read MD [address] [place] [address] Scheduled Referrals Name Type Priority Associated Diagnoses Orde r Schedule PULMONARY MEDICINE REFERRAL Referral Routine Pulmonary nodules Ordered: 09/25/2019 documented as of this encounter Visit Diagnoses Diagnosis Pulmonary nodules- Primary Other nonspecific abnormal finding of lung field documented in this encounter Additional Health Concerns Infection Onset Date Last Indicated Resolved Time Rule Out COVID-19 08/19/2020 08/19/2020 08/19/2020 4:40 PM TEMPLATE REPRODUCTION TECHNICIAN Rule Out C-difficile 02/27/2021 02/27/2021 021 [...] documented as of this encounter Care Teams Roller Skate Repairer Relationship Specialty Start Date End Date Len Adhikari MD PCP - General Family Practice 11/08/16 05/09/22 [place] [address] [place] [address] PCP - General Family Medicine 05/18/22 Jovany Gonzalez MD [facility] [address] [facility] [address] [place], [place] [address] Orthopedics 02/15/17 Staci Woodward AMMONIA OPERATOR [place] [address] [place] [address] Nurse Practitioner Nurse Practitioner Psych/Mental Health 05/10/17 [place] [address] [facility] [place] [address] Assigned PCP 11/14/16 01/22/[address] [place] [address] [place] [address] Midwife Dietitian, Registered 07/25/19 [place] [address] [facility] [address] [place] [address] Assigned Musculoskeletal Provider 05/02/20 09/13/20 aKtiana Read MD [address] [place] [address] Assigned Endocrinology Provider 05/02/20 08/01/21 Jovita Daly MD [address] [place] [address] Assigned Surgical Provider 05/02/20 10/04/20 Alexander López MD [address] [place] [address] Assigned Sleep Provider 05/02/20 11/15/20 Jese Doyle MD [address] [place], [place] 4520[address] Assigned Pulmonology Provider 05/02/20 04/11/21 Roshni Nascimento, RN Personal Advocate & Liaison (PAL) Family Medicine 08/18/20 Johana Groves, [facility] [address] [place], [place] [phone] Pharmacist Pharmacist 08/28/20 11/26/20 Kiet Swain MD [address] [facility] [address] [address] [place] [address] Referring Physician Psychiatry 09/19/20 Winsome Pike APRN RECREATIONAL ASSISTANT [address] [place] [address] Nurse Practitioner Psychiatry 09/19/20 Troi Hines, [facility] [address] [place], [place] [address]39[address] Electroformer Electroformer - Clinical 09/19/20 Miranda Queen [facility] [address] [place] [address] Pharmacist Pharmacist 11/12/20 Winsome Pike, VIDHI RECREATIONAL ASSISTANT [address] [place] [address] [phone] Assigned Behavioral Health Provider 01/04/21 07/02/22 Marisel Armando MD [address] [place] [address] 744805 Gastroenterology 02/05/21 Marisel Armando MD [address] [place] [address] 066515 Assigned Gastroenterology Provider 03/08/21 12/24/22 Inderjit Ugalde MD [address] [facility] [address] [place], [place] [address] Assigned Surgical Provider 02/15/21 08/20/22 Wesley Barrett MD [address] [place] [address] 96 [place], [place] [address] Assigned Neuroscience Provider 05/10/21 hCarles Jaramillo PA-C [address] [facility] [place] [address] [address] Assigned Musculoskeletal Provider 04/26/21 10/15/22 Miranda Queen [facility] [address] [place] [address] Assigned MTM Pharmacist 12/05/21 03/26/22 [place] [address] [place] [address] Assigned PCP 01/23/22 05/14/22 Miranda Queen [facility] [address] [place] [address] Assigned MTM Pharmacist 04/07/22 05/14/22 [place] [address] [place] [address] Assigned PCP 05/15/22 Katiana Read MD [address] [address] Assigned Endocrinology Provider 06/19/22 Meme Singleton, PhD [address] [place] [address] Assigned Behavioral Health Provider 07/03/22 12/31/22 Deena Garza APRN RECREATIONAL ASSISTANT [address] [place] [address] Assigned Pain Medication Provider 07/19/22 10/29/22 Mary Del Cid, RAFAEL [address] [place] [address] Nurse Practitioner Nurse Practitioner 10/18/22 Elham Stack, [facility] [address] [place] [address] Pharmacist Pharmacist 10/19/22 Emerita Potter, [facility] Clinic Msw Electroformer - Clinical 10/29/22 11/02/22 [place] [address] [address] [place] [address] Assigned Pain Medication Provider 10/30/22 12/03/22 Michelle Guzman, DPM, Podiatry/Foot and Ankle Surgery [address] [place] [address] Assigned Musculoskeletal Provider 10/16/22 04/08/23 [place] [address] [place] [address] Assigned Pain Medication Provider 12/04/22 04/01/23 Mary Del Cid, [place] [address] [place] [address] Nurse Practitioner Nurse Practitioner 01/17/23 01/17/23 Aubrey Jones MD [address] [place] [address] Cardiovascular Disease 03/28/23 Blanquita Morales Midwife Diabetes Education 04/25/23 Aubrey Jones MD [address] [place] [address] Assigned Heart and Vascular Provider 05/07/23 documented as of this encounter
--- OUTSIDE RECORDS SUMMARY | 2023-08-03 10:18 | XMS_ITS | Encounter Summary ---
Author Name Unknown Organization [facility] Address [address] [place] [address]. [place] [address] Care Team Providers Care Blasting Gang Miner Name Role Phone Len Adhikari MD Primary Care Provider [phone] Jovany Gonzalez MD Unavailable CrissyStaci jeong RETAIL WIRELESS ASSOCIATE Unavailable [phone] Len Adhikari MD Unavailable Reanna Smith [address] Unavailable Jamshid Granados MD Unavailable [phone] Katiana Read MD Unavailable [phone] Jovita Daly MD Unavailable [phone] Alexander López MD Unamarcelina lable Jese Doyle MD Unavailable [phone] Roshni Nascimento RN Unavailable Unavailable Johana Groves [facility] Unavailable [phone] Kiet Swain MD Unavailable [phone] Winsome Pike APRN MANAGER SITE Unavailable [phone] Tori Hines [facility] Unavailable Miranda Queen [facility] Unavailable Unavailable Winsome Pike APRN MANAGER SITE Unavailable Marisel Armando MD Unavailable Marisel Armando MD Unavailable Inderjit Ugalde MD Unavailable Wesley Barrett MD Unavailable [phone] EllaCharles jimenez Michele GEIGER Unavailable [phone] Miranda Queen [facility] Unavailable Unavailable Leeann Rinaldi MD Unavailable Miranda Queen [facility] Unavailable Unavailable Dyan Fuentes MD Primary Care Provider [phone] Dyan Fuentes MD Unavailable [phone] Katiana Read MD Unavailable [phone] Meme Singleton PhD Unavailable [phone] Deena Garza APRN MANAGER SITE Unavailable [phone] Mary Del Cid NP Unavailable + [phone] Elham Stack [facility] Unavailable [phone] Emerita Potter [facility] Unavailable [phone] Mary Del Cid NP Unavailable + [phone] Michelle Guzman DPM, Podiatry /Foot and Ankle Surgery Unavailable Dyan Fuentes MD Unavailable [phone] Mary Del Cid NP Unavailable + [phone] Aubrey Jones MD Unavailable [phone] Blanquita Morales Unavailable Unavailable Aubrey Jones MD Unavailable [phone] Encounter Details Date Type Department Care Team (Late st Contact Info) Description 09/11/2019 [facility] [address] [address] [place] [address] [place] [address] Social History Tobacco Use Types Packs/Day Years [...] Contact Info) Description 08/18/2023 3:00 PM POWER GRADER OPERATOR Office Visit [facility] [address] [facility] [address] [place] [address] Katiana Read MD [address] [place] [address] documented as of this encounter Visit Diagnoses Not on filedocumented in this encounter Additional Health Concerns Infection Onset Date Last Indicated Resolved Time Rule Out COVID-19 08/19/2020 08/19/2020 08/19/2020 4:40 PM POWER GRADER OPERATOR Rule Out C-difficile 02/27/2021 02/27/2021 021 [...] documented as of this encounter Care Teams Blasting Gang Miner Relationship Specialty Start Date End Date Len Adhikari MD PCP - General Family Practice 11/08/16 05/09/22 [place] [address] [place] [address] PCP - General Family Medicine 05/18/22 Jovany Gonzalez MD [facility] [address] [facility] [address] [place], [place] [address] Orthopedics 02/15/17 Staci Woodward NP [facility] [address] [place], [place] [address] Nurse Practitioner Nurse Practitioner Psych/Mental Health 05/10/17 [place] [address] [facility] [place] [address] Assigned PCP 11/14/16 01/22/[address] [facility] [address] [place], [place] [address] Dynamite Shooter Dietitian, Registered 07/25/19 [place] [address] [facility] [address] [place], [place] [address] Assigned Musculoskeletal Provider 05/02/20 09/13/20 Katiana Read MD [address] [facility] 200 [place], [place] [address] Assigned Endocrinology Provider 05/02/20 08/01/21 Jovita Daly MD [address] [place], [place] [address]67 Assigned Surgical Provider 05/02/20 10/04/20 Alexander López MD [address] 106 [place], [place] 23[address] Assigned Sleep Provider 05/02/20 11/15/20 Jese Doyle MD 9[address] [place], [place] 4546[address] Assigned Pulmonology Provider 05/02/20 04/11/21 Roshni Nascimento, RN Personal Advocate & Liaison (PAL) Family Medicine 08/18/20 Johana Groves, [facility] [address] [place] [address] Pharmacist Pharmacist 08/28/20 11/26/20 Kiet Swain MD [address] [place], [place] [address] [place], [place] [address] Referring Physician Psychiatry 09/19/20 Winsome Pike APRN MANAGER SITE [address] [address] Nurse Practitioner Psychiatry 09/19/20 Tori Hines, [facility] [address] [place] [address] [place] [address] Water Vessel Captain Water Vessel Captain - Clinical 09/19/20 Miranda Queen [facility] [address] [place] [address] Pharmacist Pharmacist 11/12/20 Winsome Pike APRN MANAGER SITE [facility] [address] [address] Assigned Behavioral Health Provider 01/04/21 07/02/22 Marisel Armando MD [address] [place] [address] [phone] Gastroenterology 02/05/21 Marisel Armando MD [address] [place] [address] 619355 Assigned Gastroenterology Provider 03/08/21 12/24/22 Inderjit Ugalde MD [address] [facility] 300 [place], [place] [address] Assigned Surgical Provider 02/15/21 08/20/22 Wesley Barrett MD [address] [facility] 96 [place], [place] [address] Assigned Neuroscience Provider 05/10/21 Charles Jaramillo PA-C [address] [address] Assigned Musculoskeletal Provider 04/26/21 10/15/22 [place] [address] [place] [address] Assigned MTM Pharmacist 12/05/21 03/26/22 [place] [address] [place] [address] Assigned PCP 01/23/22 05/14/22 Miranda Queen [facility] [address] [place] [address] Assigned MTM Pharmacist 04/07/22 05/14/22 [place] [address] [place] [address] Assigned PCP 05/15/22 Katiana Read MD [address] [place] [address] Assigned Endocrinology Provider 06/19/22 [place] [address] [place] [address] Assigned Behavioral Health Provider 07/03/22 12/31/22 Deena Garza APRN MANAGER SITE [address] [place] [address] Assigned Pain Medication Provider 07/19/22 10/29/22 Mary Del Cid, RAFAEL [address] [place] [address] Nurse Practitioner Nurse Practitioner 10/18/22 Elham Stack, [facility] 30[address] [place] [address] Pharmacist Pharmacist 10/19/22 Emerita Potter, [facility] Clinic Aviation Maintenance Technician Water Vessel Captain - Clinical 10/29/22 11/02/22 [place] [address] [address] [place] [address] Assigned Pain Medication Provider 10/30/22 12/03/22 Michelle Guzman, DPM, Podiatry/Foot and Ankle Surgery [address] [place] [address] Assigned Musculoskeletal Provider 10/16/22 04/08/23 [place] [address] [place] [address] Assigned Pain Medication Provider 12/04/22 04/01/23 [place] [address] [place] [address] Nurse Practitioner Nurse Practitioner 01/17/23 01/17/23 Aurbey Jones MD [address] [place] [address] Cardiovascular Disease 03/28/23 Blanquita Morales Dynamite Shooter Diabetes Education 04/25/23 Aubrey Jones MD [address] [place] [address] Assigned Heart and Vascular Provider 05/07/23 documented as of this encounter
--- OUTSIDE RECORDS SUMMARY | 2023-08-03 10:18 | XMS_ITS | Encounter Summary ---
Author Name Unknown Organization [facility] Address [address] [place] [address]. [place] [address] Care Team Providers Care Steaming Machine Operator Name Role Phone Len Adhikari MD Primary Care Provider [phone] Jovany Gonzalez MD Unavailable CrissyStaci jeong HELP DESK TECHNICIAN Unavailable [phone] Len Adhikari MD Unavailable [phone] Unavailable [phone] Jamshid Granados MD Unavailable Katiana Read MD Unavailable +[phone] Jovita Daly MD Unavailable +[phone] Alexander López MD Unamarcelina lable Jese Doyle MD Unavailable +[phone] Roshni Nascimento RN Unavailable Unavailable Johana Groves [facility] Unavailable +[phone] Kiet Swain MD Unavailable [phone] Winsome Pike APRN DISPATCH MACHINE RUNNER Unavailable +[phone] [facility] Unavailable Miranda Queen [facility] Unavailable Unavailable Winsome Pike APRN DISPATCH MACHINE RUNNER Unavailable Marisel Armando MD Unavailable Marisel Armando MD Unavailable Inderjit Ugalde MD Unavailable [phone] Wesley Barrett MD Unavailable +[phone] EllaCharles jimenez Michele GEIGER Unavailable +[phone] Miranda Queen [facility] Unavailable Unavailable Leeann Rinaldi MD Unavailable Miranda Queen [facility] Unavailable Unavailable Dyan Fuentes MD Primary Care Provider +[phone] Dyan Fuentes MD Unavailable +[phone] Katiana Read MD Unavailable +[phone] Meme Singleton PhD Unavailable +[phone] Deena Garza APRN DISPATCH MACHINE RUNNER Unavailable +[phone] Mary Del Cid NP Unavailable + [phone] Elham Stack [facility] Unavailable +[phone] [facility] Unavailable +[phone] Mary Del Cid NP Unavailable + [phone] Michelle Guzman DPM, Podiatry /Foot and Ankle Surgery Unavailable Dyan Fuentes MD Unavailable +[phone] Mary Del Cid NP Unavailable + [phone] Aubrey Jones MD Unavailable +[phone] Blanquita Morales Unavailable Unavailable Aubrey Jones MD Unavailable +[phone] Encounter Details Date Type Department Care Team (Late st Contact Info) Description 09/18/2019 [facility] [address] [address] [place] [address] [place] [address] Social History Tobacco Use Types Packs/Day Years [...] st Contact Info) Description 08/18/2023 3:00 PM PRESENTATION TEAM MEMBER Office Visit [facility] [address] [facility] [address] [place] [address] Katiana Read MD [address] [place] [address] documented as of this encounter Visit Diagnoses Not on filedocumented in this encounter Additional Health Concerns Infection Onset Date Last Indicated Resolved Time Rule Out COVID-19 08/19/2020 08/19/2020 08/19/2020 4:40 PM PRESENTATION TEAM MEMBER Rule Out C-difficile 02/27/2021 02/27/2021 021 6:10 [...] documented as of this encounter Care Teams Steaming Machine Operator Relationship Specialty Start Date End Date Len Adhikari MD PCP - General Family Practice 11/08/16 05/09/22 [place] [address] [place] [address] PCP - General Family Medicine 05/18/22 Jovany Gonzalez MD [facility] 6600 [facility] 605 [place], [place] [address] Orthopedics 02/15/17 Staci Woodward NP [facility] [address] [place], [place] [address] Nurse Practitioner Nurse Practitioner Psych/Mental Health 05/10/17 [place] [address] [facility] [place] [address] Assigned PCP 11/14/16 01/22/[address] [facility] [address] [place], [place] [address] Lawn And Garden Technician Dietitian, Registered 07/25/19 [place] [address] [facility] 300 [place], [place] [address] Assigned Musculoskeletal Provider 05/02/20 09/13/20 Katiana Read MD [address] [facility] 200 [place], [place] [address] Assigned Endocrinology Provider 05/02/20 08/01/21 Jovita Daly MD [address] [place], [place] [address] Assigned Surgical Provider 05/02/20 10/04/20 Alexander López MD 606 24[facility] 106 [place], [place] [address]574 Assigned Sleep Provider 05/02/20 11/15/20 Jese Doyle MD 909 [place], [place] [address] Assigned Pulmonology Provider 05/02/20 04/11/21 Roshni Nsacimento, RN Personal Advocate & Liaison (PAL) Family Medicine 08/18/20 Johana Groves, [facility] [address] [facility] [place] [address] Pharmacist Pharmacist 08/28/20 11/26/20 Kiet Swain MD [address] [place], [place] [address] [place], [place] [address] Referring Physician Psychiatry 09/19/20 Winsome Pike APRN DISPATCH MACHINE RUNNER [address] [address] Nurse Practitioner Psychiatry 09/19/20 Tori Hines, [facility] [address] [place] [address] [place] [address] Obstetrical Anesthesiologist Obstetrical Anesthesiologist - Clinical 09/19/20 Miranda Queen [facility] [address] [place] [address] Pharmacist Pharmacist 11/12/20 Winsome Pike APRN DISPATCH MACHINE RUNNER [facility] [address] 769534 Assigned Behavioral Health Provider 01/04/21 07/02/22 Marisel Armando MD [address] [place] [address] [id number] Gastroenterology 02/05/21 aMrisel Armando MD [address] [place] [address] 386025 Assigned Gastroenterology Provider 03/08/21 12/24/22 Inderjit Ugalde MD [address] [facility] 300 [place], [place] 5[address] Assigned Surgical Provider 02/15/21 08/20/22 Wesley Barrett MD 420 [facility] 96 [place], [place] [address] Assigned Neuroscience Provider 05/10/21 Charles Jaramillo PA-C [address] [address] Assigned Musculoskeletal Provider 04/26/21 10/15/22 [place] [address] [place] [address] Assigned MTM Pharmacist 12/05/21 03/26/22 [place] [address] [place] [address] Assigned PCP 01/23/22 05/14/22 Miranda Queen [facility] [address] [place] [address] Assigned MTM Pharmacist 04/07/22 05/14/22 [place] [address] [place] [address] Assigned PCP 05/15/22 Katiana Read MD [address] [place] [address] Assigned Endocrinology Provider 06/19/22 [place] [address] [place] [address] Assigned Behavioral Health Provider 07/03/22 12/31/22 Deena Garza APRN DISPATCH MACHINE RUNNER [address] [place] [address] Assigned Pain Medication Provider 07/19/22 10/29/22 Mary Del Cid, RAFAEL [address] [place] [address] Nurse Practitioner Nurse Practitioner 10/18/22 Elham Stack, [facility] 3033 [place] [address] Pharmacist Pharmacist 10/19/22 Emerita Potter, [facility] Clinic Legal Services Manager Obstetrical Anesthesiologist - Clinical 10/29/22 11/02/22 [place] [address] [place] [place] [place] [address] Assigned Pain Medication Provider 10/30/22 12/03/22 Michelle Guzman, DPM, Podiatry/Foot and Ankle Surgery [address] [place] [address] Assigned Musculoskeletal Provider 10/16/22 04/08/23 [place] [address] [place] [address] Assigned Pain Medication Provider 12/04/22 04/01/23 [place] [address] [place] [address] Nurse Practitioner Nurse Practitioner 01/17/23 01/17/23 Aubrey Jones MD [address] [place] [address] Cardiovascular Disease 03/28/23 Blanquita Morales Lawn And Garden Technician Diabetes Education 04/25/23 Aubrey Jones MD [address] [place] [address] Assigned Heart and Vascular Provider 05/07/23 documented as of this encounter
--- OUTSIDE RECORDS SUMMARY | 2023-08-03 10:18 | XMS_ITS | Encounter Summary ---
Author Name Unknown Organization [facility] Address [address] [place] [address]. [place] [address] Care Team Providers Care Wing Coverer Name Role Phone Len Adhikari MD Primary Care Provider Jovany Gonzalez MD Unavailable CrissyStaci jeong MANAGING CONSULTANT CLINICAL PROFESSOR Unavailable [phone] Len Adhikari MD Unavailable Reanna Smith [address] Unavailable [phone] Jamshid Granados MD Unavailable +[phone] Katiana Read MD Unavailable +[phone] Jovita Daly MD Unavailable +[phone] Alexander López MD Unamarcelina lable Jese Doyle MD Unavailable +[phone] Roshni Nascimento RN Unavailable Unavailable Johana Groves [facility] Unavailable Kiet Swain MD Unavailable [phone] Winsome Pike APRN COMMUNITY ENGAGEMENT LEADER Unavailable [phone] Tori Hines [facility] Unavailable Miranda Queen [facility] Unavailable Unavailable Winsome Pike APRN COMMUNITY ENGAGEMENT LEADER Unavailable Marisel Armando MD Unavailable Marisel Armando MD Unavailable Inderjit Ugalde MD Unavailable [phone] Wesley Barrett MD Unavailable +[phone] EllaCharles Michele GEIGER Unavailable +[phone] Miranda Queen [facility] Unavailable Unavailable Leeann Rinaldi MD Unavailable Miranda Queen [facility] Unavailable Unavailable Dyan Fuentes MD Primary Care Provider [phone] Dyan Fuentes MD Unavailable +[phone] Katiana Read MD Unavailable [phone] Meme Singleton PhD Unavailable +[phone] Deena Garza APRN COMMUNITY ENGAGEMENT LEADER Unavailable +[phone] Mary Del Cid NP Unavailable + [phone] Elham Stack [facility] Unavailable +[phone] Emerita Potter [facility] Unavailable [phone] Mary Del Cid NP Unavailable + [phone] Michelle Guzman DPM, Podiatry /Foot and Ankle Surgery Unavailable Dyan Fuentes MD Unavailable +[phone] Mary Del Cid NP Unavailable + [phone] Aubrey Jones MD Unavailable +[phone] Blanquita Morales Unavailable Unavailable Aubrey Jones MD Unavailable [phone] Encounter Details Date Type Department Care Team (Late st Contact Info) Description 08/16/2019 [facility] [address] [address] PusalaAlexander saha MD [address] [place] [address] Social History Tobacco Use Types Packs/Day Years Used Date Smoking Tobacco: Every Day Cigarettes 0.5 40 Smokeless Tobacco: Never Comments:0-4 cigarettes a da y Alcohol Use Standard Drinks/Week Comments Yes 0 (1 standard drink = 0.6 oz [...] Contact Info) Description 08/18/2023 3:00 PM SALES OFFICER Office Visit [facility] [address] [facility] [address] [place] [address] Katiana Read MD [address] [facility] 200 [place] [address] documented as of this encounter Visit Diagnoses Not on filedocumented in this encounter Additional Health Concerns Infection Onset Date Last Indicated Resolved Time Rule Out COVID-19 08/19/2020 08/19/2020 08/19/2020 4:40 PM SALES OFFICER Rule Out C-difficile 02/27/2021 02/27/2021 021 [...] documented as of this encounter Care Teams Wing Coverer Relationship Specialty Start Date End Date Len Adhikari MD PCP - General Family Practice 11/08/16 05/09/22 [place] [address] [place] [address] PCP - General Family Medicine 05/18/22 Jovany Gonzalez MD [facility] 6600 [facility] 605 [place], [place] [address] Orthopedics 02/15/17 Staci Woodward NP [facility] [address] [place], [place] [address] Nurse Practitioner Nurse Practitioner Psych/Mental Health 05/10/17 [place] [address] [facility] [place] [address] Assigned PCP 11/14/16 01/22/[address] [facility] [address] [place] [address] Tank Tester Dietitian, Registered 07/25/19 [place] [address] [facility] 300 [place], [place] [address] Assigned Musculoskeletal Provider 05/02/20 09/13/20 Katiana Read MD [address] [facility] 200 [place], [place] [address] Assigned Endocrinology Provider 05/02/20 08/01/21 Jovita Daly MD [address] [place], [place] 28[address] Assigned Surgical Provider 05/02/20 10/04/20 Alexander López MD [address] [facility] 106 [place], [place] [address] Assigned Sleep Provider 05/02/20 11/15/20 Jese Doyle MD 909 [place], [place] [address] Assigned Pulmonology Provider 05/02/20 04/11/21 Roshni Nascimento, RN Personal Advocate & Liaison (PAL) Family Medicine 08/18/20 Johana Groves, [facility] [address] [facility] [address] [place], [place] [address] Pharmacist Pharmacist 08/28/20 11/26/20 Kiet Swain MD [facility] NG15 [place], [place] [address] Referring Physician Psychiatry 09/19/20 Winsome Pike APRN COMMUNITY ENGAGEMENT LEADER [address] [place] [address] 586244 Nurse Practitioner Psychiatry 09/19/20 Tori Hines, [facility] 2450 [place] [address] Home Health Care Worker Home Health Care Worker - Clinical 09/19/20 Miranda Queen [facility] [address] [place] [address] Pharmacist Pharmacist 11/12/20 Winsome Pike APRN COMMUNITY ENGAGEMENT LEADER [address] [place] [address] [phone] Assigned Behavioral Health Provider 01/04/21 07/02/22 Marisel Armando MD [address] [place] [address] [id number] Gastroenterology 02/05/21 Marisel Armando MD [address] [place] [address] 235065 Assigned Gastroenterology Provider 03/08/21 12/24/22 Inderjit Ugalde MD [address] 824127 Assigned Surgical Provider 02/15/21 08/20/22 Wesley Barrett MD [address] [place] [address] 96 [place], [place] [address] Assigned Neuroscience Provider 05/10/21 Charles Jaramillo PA-C [address] [address] Assigned Musculoskeletal Provider 04/26/21 10/15/22 Miranda Queen [facility] [address] [place] [address] Assigned MTM Pharmacist 12/05/21 03/26/22 [place] [address] [place] [address] Assigned PCP 01/23/22 05/14/22 Miranda Queen [facility] [address] [place] [address] Assigned MTM Pharmacist 04/07/22 05/14/22 [place] [address] [place] [address] Assigned PCP 05/15/22 Katiana Read MD [address] [place] [address] Assigned Endocrinology Provider 06/19/22 Meme Singleton[place] PhD [address] [place] [address] Assigned Behavioral Health Provider 07/03/22 12/31/22 Deena Garza APRN COMMUNITY ENGAGEMENT LEADER [address] [place] [address] Assigned Pain Medication Provider 07/19/22 10/29/22 Mary Del Cid, RAFAEL [address] [place] [address] Nurse Practitioner Nurse Practitioner 10/18/22 Elham Stack, [facility] 3033 [place] [address] Pharmacist Pharmacist 10/19/22 Emerita Potter, [facility] Clinic Rn On Site Home Health Care Worker - Clinical 10/29/22 11/02/22 [place] [address] [place] [address] Assigned Pain Medication Provider 10/30/22 12/03/22 Michelle Guzman, DPM, Podiatry/Foot and Ankle Surgery [address] [place] [address] Assigned Musculoskeletal Provider 10/16/22 04/08/23 [place] [address] [place] [address] Assigned Pain Medication Provider 12/04/22 04/01/23 [place] [address] [place] [address] Nurse Practitioner Nurse Practitioner 01/17/23 01/17/23 Aubrey Jones MD [address] [place] [address] Cardiovascular Disease 03/28/23 Blanquita Morales Tank Tester Diabetes Education 04/25/23 Aubrey Jones MD [address] [place] [address] Assigned Heart and Vascular Provider 05/07/23 documented as of this encounter
--- OUTSIDE RECORDS SUMMARY | 2023-08-03 10:18 | XMS_ITS | Encounter Summary ---
Author Name Unknown Organization [facility] Address [address] [place] [address]. [place] [address] Care Team Providers Care Senior Courtroom Clerk Name Role Phone Len Adhikari MD Primary Care Provider Jovany Gonzalez MD Unavailable CrissyStaci jeong LIVESTOCK SALES REPRESENTATIVE Unavailable [phone] Len Adhikari MD Unavailable [phone] Unavailable Jamshid Granados MD Unavailable +[phone] Katiana Read MD Unavailable +[phone] Jovita Daly MD Unavailable +[phone] Alexander López MD Unamarcelina lable Jese Doyle MD Unavailable +[phone] Roshni Nascimento RN Unavailable Unavailable Johana Groves [facility] Unavailable Kiet Swain MD Unavailable [phone] Winsome Pike APRN IT COMMUNICATIONS MANAGER Unavailable +[phone] Tori Hines [facility] Unavailable Miranda Queen [facility] Unavailable Unavailable Winsome Pike APRN IT COMMUNICATIONS MANAGER Unavailable Marisel Armando MD Unavailable Marisel Armando MD Unavailable Inderjit Ugalde MD Unavailable [phone] Wesley Barrett MD Unavailable +[phone] EllaCharles Michele GEIGER Unavailable +[phone] Miranda Queen [facility] Unavailable Unavailable Leeann Rinaldi MD Unavailable Miranda Queen [facility] Unavailable Unavailable Dyan Fuentes MD Primary Care Provider [phone] Dyan Fuentes MD Unavailable +[phone] Katiana Read MD Unavailable +[phone] Meme Singleton PhD Unavailable +[phone] Deena Garza APRN IT COMMUNICATIONS MANAGER Unavailable +[phone] Mary Del Cid NP Unavailable + [phone] Elham Stack [facility] Unavailable [phone] Emerita Potter [facility] Unavailable [phone] Mary Del Cid NP Unavailable + [phone] Michelle Guzman DPM, Podiatry /Foot and Ankle Surgery Unavailable Dyan Fuentes MD Unavailable +[phone] Mary Del Cid NP Unavailable + [phone] Aubrey Jones MD Unavailable +[phone] Blanquita Morales Unavailable Unavailable Aubrey Jones MD Unavailable [phone] Encounter Details Date Type Department Care Team (Late st Contact Info) Description 09/21/2019 [facility] [address] [address] Rachelle Rahman Social History Tobacco Use Types Packs/Day Years [...] st Contact Info) Description 08/18/2023 3:00 PM SEMIAUTOMATIC TAPER OPERATOR Office Visit [facility] [address] [facility] [address] [place] [address] Katiana Read MD [address] 200 [place] [address] documented as of this encounter Visit Diagnoses Not on filedocumented in this encounter Additional Health Concerns Infection Onset Date Last Indicated Resolved Time Rule Out COVID-19 08/19/2020 08/19/2020 08/19/2020 4:40 PM SEMIAUTOMATIC TAPER OPERATOR Rule Out C-difficile 02/27/2021 02/27/2021 021 [...] as of this encounter Care Teams Senior Courtroom Clerk Relationship Specialty Start Date End Date Len Adhikari MD PCP - General Family Practice 11/08/16 05/09/22 [place] [address] [place] [address] PCP - General Family Medicine 05/18/22 Jovany Gonzalez MD [facility] 6600 [facility] 605 [place], [place] [address] Orthopedics 02/15/17 Staci Woodward NP [place] [address] [place], [place] 29[address] Nurse Practitioner Nurse Practitioner Psych/Mental Health 05/10/17 [place] [address] [place] [address] Assigned PCP 11/14/16 01/22/[address] [facility] [address] [place] [address] X Ray Technologist Dietitian, Registered 07/25/19 [place] [address] [facility] 300 [place], [place] [address] Assigned Musculoskeletal Provider 05/02/20 09/13/20 Katiana Read MD [address] [place] [address] 200 [place] [address] Assigned Endocrinology Provider 05/02/20 08/01/21 Jovita Daly MD [address] [place] [address] Assigned Surgical Provider 05/02/20 10/04/20 Alexander López MD [address] [place] [address] 106 [place], [place] 2049[address] Assigned Sleep Provider 05/02/20 11/15/20 Jese Doyle MD 909 [place], [place] 208[address] Assigned Pulmonology Provider 05/02/20 04/11/21 Roshni Nascimento, RN Personal Advocate & Liaison (PAL) Family Medicine 08/18/20 [facility] [address] [facility] [address] [place], [place] [phone] Pharmacist Pharmacist 08/28/20 11/26/20 Kiet Swain MD [facility]0 [facility]15 [place], [place] [address] Referring Physician Psychiatry 09/19/20 Winsome Pike APRN IT COMMUNICATIONS MANAGER [address] [address] Nurse Practitioner Psychiatry 09/19/20 Tori Hines, [facility] 2450 [place], [place] 3[address] Roll Cutting Operator Roll Cutting Operator - Clinical 09/19/20 Miranda Queen [facility] [address] [place] [address] Pharmacist Pharmacist 11/12/20 Winsome Pike APRN CNP [address] [address] Assigned Behavioral Health Provider 01/04/21 07/02/22 Marisel Armando MD [address] [place] [address] Gastroenterology 02/05/21 Marisel Armando MD [address] [place] [address] Assigned Gastroenterology Provider 03/08/21 12/24/22 Inderjit Ugalde MD [address] [facility] 300 [place] [address] Assigned Surgical Provider 02/15/21 08/20/22 Wesley Barrett MD 420 [facility] 96 [place] [address] Assigned Neuroscience Provider 05/10/21 Charles Jaramillo PA-C 6545 [facility] [address] [address] Assigned Musculoskeletal Provider 04/26/21 10/15/22 Miranda Queen [facility] [address] [facility] [place] [place] [address] Assigned MTM Pharmacist 12/05/21 03/26/22 [place] [address] [place] [address] Assigned PCP 01/23/22 05/14/22 Miranda Queen [facility] [address] [place] [address] Assigned MTM Pharmacist 04/07/22 05/14/22 [place] [address] [place] [address] Assigned PCP 05/15/22 Katiana Read MD [address] [address] Assigned Endocrinology Provider 06/19/22 [place] PhD [address] [place] [address] Assigned Behavioral Health Provider 07/03/22 12/31/22 Deena Garza, C PYTHON DEVELOPER IT COMMUNICATIONS MANAGER [address] [place] [address] Assigned Pain Medication Provider 07/19/22 10/29/22 Mary Del Cid, RAFAEL [address] [place] [address] Nurse Practitioner Nurse Practitioner 10/18/22 Elham Stack, [facility] 3033 [place] [address] Pharmacist Pharmacist 10/19/22 Emerita Potter, [facility] Clinic Radial Drill Operator Roll Cutting Operator - Clinical 10/29/22 11/02/22 Mary Del Cid, RAFAEL [address] [place] [address] Assigned Pain Medication Provider 10/30/22 12/03/22 Michelle Guzman DPM, Podiatry/Foot and Ankle Surgery [address] [place] [address] Assigned Musculoskeletal Provider 10/16/22 04/08/23 [place] [address] [place] [address] Assigned Pain Medication Provider 12/04/22 04/01/23 [place] [address] [address] [address] Nurse Practitioner Nurse Practitioner 01/17/23 01/17/23 Aubrey Jones MD [address] [place] [address] Cardiovascular Disease 03/28/23 Blanquita Morales X Ray Technologist Diabetes Education 04/25/23 Aubrey Jones MD [address] [place] [address] Assigned Heart and Vascular Provider 05/07/23 documented as of this encounter
--- OUTSIDE RECORDS SUMMARY | 2023-08-03 10:18 | XMS_ITS | Encounter Summary ---
Author Name Unknown Organization [facility] Address [address] [place] [address]. [place] [address] Care Team Providers Care Toll Collector Name Role Phone Len Adhikari MD Primary Care Provider Jovany Gonzalez MD Unavailable CrissyStaci jeong PAPER CARRIER Unavailable [phone] Len Adhikari MD Unavailable [phone] Unavailable Jamshid Granados MD Unavailable [phone] Katiana Read MD Unavailable [phone] Jovita Daly MD Unavailable [phone] Alexander López MD Unamarcelina lable Jese Doyle MD Unavailable [phone] Roshni Nascimento RN Unavailable Unavailable Johana Groves [facility] Unavailable [phone] Kiet Swain MD Unavailable [phone] Winsome Pike APRN SEWING MACHINE REPAIRER Unavailable +[phone] Tori Hines [facility] Unavailable Miranda Queen [facility] Unavailable Unavailable Winsome Pike APRN SEWING MACHINE REPAIRER Unavailable Marisel Armando MD Unavailable Marisel Armando MD Unavailable Inderjit Ugalde MD Unavailable [phone] Wesley Barrett MD Unavailable +[phone] EllaCharles jimenez Michele GEIGER Unavailable +[phone] Miranda Queen [facility] Unavailable Unavailable Leeann Rinaldi MD Unavailable Miranda Queen [facility] Unavailable Unavailable Dyan Fuentes MD Primary Care Provider [phone] Dyan Fuentes MD Unavailable [phone] Katiana Read MD Unavailable [phone] Meme Singleton PhD Unavailable [phone] Deena Garza APRN SEWING MACHINE REPAIRER Unavailable [phone] Mary Del Cid NP Unavailable [phone] Elham Stack [facility] Unavailable Emerita Potter [facility] Unavailable +[phone] Mary Del Cid NP Unavailable + [phone] [...] Care Team (Late st Contact Info) Description 11/24/2019 [facility] [address] [facility] [address] [place] [phone] Katiana Read MD [address] [facility] [address] [place] [address] Medication Refill (synthroid) Social History Tobacco Use [...] Telephone Encounter - Katiana Read MD - 11/27/2019 10:05 AM CDT Rx sent. * Telephone Encounter - Izabel Watson RN - 11/24/2019 9:37 AM CDT Requested Prescriptions Pending Prescriptions Disp Refills ??? SYNTHROID 175 MCG tablet [Pharmacy Med Name: SYNTHROID TAB 0.175MG] 180 tablet 0 Sig: TAKE 2 TABLETS (=350MCG) DAILY Thyroid Protocol Passed - 11/24/2019 3:41 AM Passed - Patient is 12 years or [...] is active on med list Passed - Normal TSH on file in past 12 months Recent Labs Lab Test 11/21/19 1358 TSH 1.36 Passed - No active on record If patient is or has had a positive test, please check TSH. Passed - No positive test in past 12 months If patient is or has had a positive test, please check TSH. Last office visit 08-30-[address] Read, Patient has a future appointment scheduled 11-28-19. Please advise, thanks. documented in this encounter Plan of Treatment Upcoming Encounters Date Type Department Care Team (Late st Contact Info) Description 08/18/2023 3:00 PM MEDICAL SONOGRAPHER Office Visit [facility] [address] [facility] [address] [place] [address] Katiana Read MD [address] [place] [address] documented as of this encounter Visit Diagnoses Diagnosis Postablative hypothyroidism Other postablative hypothyroidism documented in this encounter Additional Health Concerns Infection Onset Date Last Indicated Resolved Time Rule Out COVID-19 08/19/2020 08/19/2020 08/19/2020 4:40 PM MEDICAL SONOGRAPHER Rule Out C-difficile 02/27/2021 02/27/2021 021 6:10 [...] documented as of this encounter Care Teams Toll Collector Relationship Specialty Start Date End Date Len Adhikari MD PCP - General Family Practice 11/08/16 05/09/22 [place] [address] [place] [address] PCP - General Family Medicine 05/18/22 Jovany Gonzalez MD [facility] [address] [facility] 605 [place] [address] Orthopedics 02/15/17 Staci Woodward NP [place] [address] [place] [address] Nurse Practitioner Nurse Practitioner Psych/Mental Health 05/10/17 [place] [address] [facility] [place] [address] Assigned PCP 11/14/16 01/22/[address] [place] [address] [place] [address] Sanding Machine Operator Dietitian, Registered 07/25/19 [place] [address] [address] Assigned Musculoskeletal Provider 05/02/20 09/13/20 Katiana Read MD [address] [facility] 200 [place] [address] Assigned Endocrinology Provider 05/02/20 08/01/21 Jovita Daly MD [address] [place] [address] Assigned Surgical Provider 05/02/20 10/04/20 Alexander López MD [address] [facility] 106 [place], [place] [address] Assigned Sleep Provider 05/02/20 11/15/20 Jese Doyle MD [address] [place], [place] [address] Assigned Pulmonology Provider 05/02/20 04/11/21 Roshni Nascimento, RN Personal Advocate & Liaison (PAL) Family Medicine 08/18/20 Johana Groves, [facility] [address] [place], [place] [id number] Pharmacist Pharmacist 08/28/20 11/26/20 Kiet Swain MD [address] [place], [place] [address] [place], [place] [address] Referring Physician Psychiatry 09/19/20 Winsome Pike, VIDHI SEWING MACHINE REPAIRER [address] [place] [address] Nurse Practitioner Psychiatry 09/19/20 Tori Hines, [facility] [address] [place] [address] Air Conditioning Manager Air Conditioning Manager - Clinical 09/19/20 Miranda Queen [facility] [address] [place] [address] Pharmacist Pharmacist 11/12/20 Winsome Pike APRN SEWING MACHINE REPAIRER [address] [place] [address] Assigned Behavioral Health Provider 01/04/21 07/02/22 Marisel Armando MD [address] [place] [address] Gastroenterology 02/05/21 Marisel Armando MD [address] [place] [address] 789315 Assigned Gastroenterology Provider 03/08/21 12/24/22 Inderjit Ugalde MD [address] [facility] 300 [place] [address] Assigned Surgical Provider 02/15/21 08/20/22 Wesley Barrett MD [address] [facility] 96 [place], [place] [address] Assigned Neuroscience Provider 05/10/21 Charles Jaramillo PA-C [address] [address] Assigned Musculoskeletal Provider 04/26/21 10/15/22 Miranda Queen [facility] [address] [place] [address] Assigned MTM Pharmacist 12/05/21 03/26/22 [place] [address] [place] [address] Assigned PCP 01/23/22 05/14/22 Miranda Queen [facility] [address] [place] [address] Assigned MTM Pharmacist 04/07/22 05/14/22 [place] [address] [place] [address] Assigned PCP 05/15/22 Katiana Read MD [address] [place] [address] [id number] Assigned Endocrinology Provider 06/19/22 [place] [address] [place] 5[address]87 Assigned Behavioral Health Provider 07/03/22 12/31/22 Deena Garza, HOME PERFORMANCE LABORER SEWING MACHINE REPAIRER [address] [place] [address]497 Assigned Pain Medication Provider 07/19/22 10/29/22 Mary Del Cid, [place] [address] [place] [address] Nurse Practitioner Nurse Practitioner 10/18/22 Elham Stack, [facility] [address] [place] [address] Pharmacist Pharmacist 10/19/22 Emerita Potter, [facility] Clinic Telecommunications Professional Air Conditioning Manager - Clinical 10/29/22 11/02/22 Mary Del Cid, PAPER CARRIER [address] [address] Assigned Pain Medication Provider 10/30/22 12/03/22 Michelle Guzman, DPM, Podiatry/Foot and Ankle Surgery [address] [address] Assigned Musculoskeletal Provider 10/16/22 04/08/23 [place] [address] [place] [address] Assigned Pain Medication Provider 12/04/22 04/01/23 Mary Del Cid, RAFAEL [address] [place] [address] Nurse Practitioner Nurse Practitioner 01/17/23 01/17/23 Aubrey Jones MD [address] [place] [address] Cardiovascular Disease 03/28/23 Blanquita Morales Sanding Machine Operator Diabetes Education 04/25/23 Aubrey Jones MD [address] [place] [address] Assigned Heart and Vascular Provider 05/07/23 documented as of this encounter
--- OUTSIDE RECORDS SUMMARY | 2023-08-03 10:18 | XMS_ITS | Encounter Summary ---
Author Name Unknown Organization [facility] Address [address] [place] [address]. [place] [address] Care Team Providers Care Fabrics And Material Cutter Name Role Phone Len Adhikari MD Primary Care Provider Jovany Gonzalez MD Unavailable CrissyStaci jeong DEVELOPMENTAL SPECIALIST Unavailable [phone] Len Adhikari MD Unavailable Reanna Smith [address] Unavailable [phone] Jamshid Granados MD Unavailable Katiana Read MD Unavailable [phone] Jovita Daly MD Unavailable [phone] Alexander López MD Unamarcelina lable Jese Doyle MD Unavailable [phone] Roshni Nascimento RN Unavailable Unavailable Johana Groves [facility] Unavailable Kiet Swain MD Unavailable [phone] Winsome Pike APRN CHEMISTRY FACULTY MEMBER Unavailable [phone] Tori Hines [facility] Unavailable Miranda Queen [facility] Unavailable Unavailable Winsome Pike APRN CHEMISTRY FACULTY MEMBER Unavailable Marisel Armando MD Unavailable Marisel Armando MD Unavailable Inderjit Ugalde MD Unavailable [phone] Wesley Barrett MD Unavailable [phone] EllaCharles jimenez Michele GEIGER Unavailable +[phone] Miranda Queen [facility] Unavailable Unavailable Leeann Rinaldi MD Unavailable Miranda Queen [facility] Unavailable Unavailable Dyan Fuentes MD Primary Care Provider [phone] Dyan Fuentes MD Unavailable [phone] Katiana Read MD Unavailable [phone] Meme Singleton PhD Unavailable [phone] Deena Garza APRN CHEMISTRY FACULTY MEMBER Unavailable [phone] Mary Del Cid NP Unavailable [phone] Elham Stack [facility] Unavailable Emerita Potter [facility] Unavailable [phone] Mary Del Cid NP Unavailable + [phone] [...] Care Team (Late st Contact Info) Description 11/14/2019 [facility] [address] [place] [address] Katiana Read MD [address] [facility] 200 [place], [place] [address] Medication Refill Social History Tobacco Use Types [...] encounter Miscellaneous Notes * Telephone Encounter - Izabel Morrissey RN - 11/14/2019 3:38 PM CDT Prescription approved per [facility] Refill Protocol. documented in this encounter Plan of Treatment Upcoming Encounters Date Type Department Care Team (Late st Contact Info) Description 08/18/2023 3:00 PM FREIGHT SERVICE INSPECTOR Office Visit [facility] [address] [facility] [address] [place] [phone] Katiana Read MD [address] 200 [place] [address] documented as of this encounter Visit Diagnoses Diagnosis Type 1 diabetes mellitus with diabetic neuropathy (H) Type I (juvenile type) diabetes mellitus with neurological manifestations, not stated as uncontrolled documented in this encounter Additional Health Concerns Infection Onset Date Last Indicated Resolved Time Rule Out COVID-19 08/19/2020 08/19/2020 08/19/2020 4:40 PM FREIGHT SERVICE INSPECTOR Rule Out C-difficile 02/27/2021 02/27/2021 021 [...] documented as of this encounter Care Teams Fabrics And Material Cutter Relationship Specialty Start Date End Date Len Adhikari MD PCP - General Family Practice 11/08/16 05/09/22 [place] [address] [place] [address] PCP - General Family Medicine 05/18/22 Jovany Gonzalez MD [facility] [address] [facility] [address] [place], [place] [address] Orthopedics 02/15/17 Staci Woodward, DEVELOPMENTAL SPECIALIST CLINICS [address] [facility] [place] [place] [address] Nurse Practitioner Nurse Practitioner Psych/Mental Health 05/10/17 [place] [address] [place] [address] Assigned PCP 11/14/16 01/22/[address] [facility] [address] [place] [address] Roller Shop Supervisor Dietitian, Registered 07/25/19 [place] [address] [facility] [address] [place], [place] [address] Assigned Musculoskeletal Provider 05/02/20 09/13/20 Katiana Read MD [address] [facility] 200 [place], [place] [address] Assigned Endocrinology Provider 05/02/20 08/01/21 Jovita Daly MD [address] [place], [place] [address] Assigned Surgical Provider 05/02/20 10/04/20 Alexander López MD [address] [facility] 106 [place], [place] [address] Assigned Sleep Provider 05/02/20 11/15/20 Jese Doyle MD [address] [place], [place] [address] Assigned Pulmonology Provider 05/02/20 04/11/21 Roshni Nascimento, RN Personal Advocate & Liaison (PAL) Family Medicine 08/18/20 Johana Groves, [facility] [place] [address] Pharmacist Pharmacist 08/28/20 11/26/20 Kiet Swain MD [address] [address] [place] [address] Referring Physician Psychiatry 09/19/20 Winsome Pike APRN CHEMISTRY FACULTY MEMBER [facility] [address] Nurse Practitioner Psychiatry 09/19/20 Tori Hines, [facility] [address] [place] [address] Underwriting Technician Underwriting Technician - Clinical 09/19/20 Miranda Queen [facility] [address] [place] [address] Pharmacist Pharmacist 11/12/20 Winsome Pike APRN CHEMISTRY FACULTY MEMBER [facility] [address] [address] Assigned Behavioral Health Provider 01/04/21 07/02/22 Marisel Armando MD [address] [place] [address] [id number] Gastroenterology 02/05/21 Marisel Armando MD [address] [place] [address] Assigned Gastroenterology Provider 03/08/21 12/24/22 Inderjit Ugalde MD [address] [facility] 300 [place], [place] [address] Assigned Surgical Provider 02/15/21 08/20/22 Wesley Barrett MD [address] [place] [address] 96 [place] [address] Assigned Neuroscience Provider 05/10/21 Charles Jaramillo PA-C [address] [facility] 450 [place] [address] Assigned Musculoskeletal Provider 04/26/21 10/15/22 [facility] [address] [place] [address] Assigned MTM Pharmacist 12/05/21 03/26/22 [place] [address] [place] [address] Assigned PCP 01/23/22 05/14/22 [facility] [address] [place] [address] Assigned MTM Pharmacist 04/07/22 05/14/22 [place] [address] [place] [address] Assigned PCP 05/15/22 Katiana Read MD [address] [place] [address] 200 [place] [address] Assigned Endocrinology Provider 06/19/22 [place] PhD [address] [place] [address] Assigned Behavioral Health Provider 07/03/22 12/31/22 Deena Garza, RADIO SALES ACCOUNT EXECUTIVE CHEMISTRY FACULTY MEMBER [address] [place] [address] Assigned Pain Medication Provider 07/19/22 10/29/22 Mary Del Cid, RAFAEL [address] [place] [address] Nurse Practitioner Nurse Practitioner 10/18/22 Elham Stack, [facility] [address] [place] [address] Pharmacist Pharmacist 10/19/22 Emerita Potter, [facility] Clinic Housing Development Specialist Underwriting Technician - Clinical 10/29/22 11/02/22 [place] [address] [place] [address] Assigned Pain Medication Provider 10/30/22 12/03/22 Michelle Guzman, DPM, Podiatry/Foot and Ankle Surgery [address] [place] [address] Assigned Musculoskeletal Provider 10/16/22 04/08/23 [place] [address] [place] [address] Assigned Pain Medication Provider 12/04/22 04/01/23 [place] [address] [place] [address] Nurse Practitioner Nurse Practitioner 01/17/23 01/17/23 Aubrey Jones MD [address] [place] [address] Cardiovascular Disease 03/28/23 Blanquita Morales Roller Shop Supervisor Diabetes Education 04/25/23 Aubrey Jones MD [address] [place] [address] Assigned Heart and Vascular Provider 05/07/23 documented as of this encounter
--- OUTSIDE RECORDS SUMMARY | 2023-08-03 10:19 | XMS_ITS | Encounter Summary ---
Author Name Unknown Organization [place] Address [address] [place] [address]. [place] [address] Care Team Providers Care Clinical Specialist Vascular Name Role Phone Len Adhikari MD Primary Care Provider Jovany Gonzalez MD Unavailable [facility] Unavailable [phone] [facility] Unavailable Len Adhikari MD Unavailable [phone] Laurita Yang RN Unavailable [phone] Unavailable [phone] Jamshid Granados MD Unavailable +[phone] Katiana Read MD Unavailable +[phone] Jovita Daly MD Unavailable Alexander López MD Unavai lable Jese Doyle MD Unavailable +[phone] Roshni Nascimento RN Unavailable Unavailable Johana Groves [facility] Unavailable Kiet Swain MD Unavailable [phone] Winsome Pike APRN TAPE MAKER Unavailable +[phone] Tori HinesSW Unavailable Miranda Queen [facility] Unavailable Unavailable Winsome Pike APRN TAPE MAKER Unavailable [phone] Marisel Armando MD Unavailable Marisel Armando MD Unavailable Inderjit Ugalde MD Unavailable [phone] Wesley Barrett MD Unavailable +[phone] Charles Jaramillo PA-C Unavailable +[phone] Miranda Queen [facility] Unavailable Unavailable Leeann Rinaldi MD Unavailable Miranda Queen [facility] Unavailable Unavailable Dyan Fuentes MD Primary Care Provider [phone] Dyan Fuentes MD Unavailable +[phone] Katiana Read MD Unavailable [phone] Meme Singleton PhD Unavailable +[phone] Deena Garza CRUSHER FOREMAN TAPE MAKER Unavailable +[phone] Mary Del Cid NP Unavailable + [phone] Elham Stack [facility] Unavailable +[phone] Abbey Emerita M CARROT TIER Unavailable +[phone] Mary Del Cid NP Unavailable + [phone] Michelle Guzman DPM, Podiatry /Foot and Ankle Surgery Unavailable Dyan Fuentes MD Unavailable [phone] Mary Del Cid NP Unavailable + [phone] Aubrey Jones MD Unavailable [phone] Blanquita Morales Unavailable Unavailable Aubrey Jones MD Unavailable +[phone] Reason for Visit * Reason Onset Date Comments [facility] Communication 02/07/2019 Encounter Details Date Type Department Care Team (Latest Contact Info) Description 02/07/2019 MyC Medical Advice M [facility] [address] [place] [address] Katiana Read MD [address] [place] [address] MyChart Communication Social History Tobacco Use Types Packs/Day Years Used Date Smoking Tobacco: Every Day Cigarettes 0.5 40 Smokeless Tobacco: Never Comments:0-4 cigarettes a da y Alcohol Use Standard Drinks/Week Comments Yes 0 (1 standard drink = 0.6 oz pur e alcohol) rarely, < 1 drink a week PHQ-2 Answer Date Recorded PHQ-2 Score 2 01/01/2019 Sex and Gender Information Value Date Recorded Sex Assigned at Female 01/24/2020 11:14 AM CDT Gender Identity Female 11/15/2020 9:02 PM CDT Sexual Orientation Straight 11/06/2020 8: 58 AM CDT documented as of this encounter Miscellaneous Notes * Telephone Encounter - Katiana Read MD - 02/07/2019 12:08 PM CDT Noted. * Telephone Encounter - Maggie South RN - 02/07/2019 11:58 AM CDT Please see my chart message and advise. Thanks Custom Dressmaker is not sure what prompted this message. documented in this encounter Plan of Treatment Upcoming Encounters Date Type Department Care Team (Late st Contact Info) Description 08/18/2023 3:00 PM SPECIAL EVENT ASSISTANT Office Visit [facility] [address] [place] [phone] Katiana Read MD [address] [place] [address] documented as of this encounter Visit Diagnoses Not on filedocumented in this encounter Additional Health Concerns Infection Onset Date Last Indicated Resolved Time Rule Out COVID-19 08/19/2020 08/19/2020 08/19/2020 4:40 PM SPECIAL EVENT ASSISTANT Rule Out C-difficile 02/27/2021 02/27/2021 021 [...] as of this encounter Care Teams Clinical Specialist Vascular Relationship Specialty Start Date End Date Len Adhikari MD PCP - General Family Practice 11/08/16 05/09/22 [place] [address] [place] [address] PCP - General Family Medicine 05/18/22 Jovany Gonzalez MD [facility] [address] [place] [address] Orthopedics 02/15/17 Staci Woodward NP [place] [address] [place], [place] [id number] Nurse Practitioner Nurse Practitioner Psych/Mental Health 05/10/17 Care, [facility]), ([place]) 02/16/18 04/12/19 [place] [address] [place] [address] Assigned PCP 11/14/16 01/22/22 Laurita Yang, RN Lead Supervisor Grading 01/08/[address] [facility] [address] [place] [address] Adjunct Sociology Professor Dietitian, Registered 07/25/19 [place] [address] [facility] [address] [place] [address] Assigned Musculoskeletal Provider 05/02/20 09/13/20 Katiana Read MD [address] [place], [place] [address] Assigned Endocrinology Provider 05/02/20 08/01/21 Jovita Daly MD [address] [place] [address] Assigned Surgical Provider 05/02/20 10/04/20 Alexander López MD [address] [facility] [address] [place], [place] [address] Assigned Sleep Provider 05/02/20 11/15/20 Jese Doyle MD [address] [place] [address] Assigned Pulmonology Provider 05/02/20 04/11/21 Roshni Nascimento, RN Personal Advocate & Liaison (PAL) Family Medicine 08/18/20 Johana Groves [facility] [address] [place], [place] [phone] Pharmacist Pharmacist 08/28/20 11/26/20 Kiet Swain MD [address] [place] [address] [id number] Referring Physician Psychiatry 09/19/20 Winsome Pike APRN TAPE MAKER [address] [place] [address] [id number] Nurse Practitioner Psychiatry 09/19/20 Tori Hines [facility] [address] [place] [address] [phone] Manager Shipping Manager Shipping - Clinical 09/19/20 Miranda Queen, [facility] [address] [place] [address] Pharmacist Pharmacist 11/12/20 Winsome Pike APRN TAPE MAKER [address] [place] [address] Assigned Behavioral Health Provider 01/04/21 07/02/22 Marisel Armando MD [address] [place] [address] [id number] Gastroenterology 02/05/21 Marisel Armando MD [address] [place] [address] 938385 Assigned Gastroenterology Provider 03/08/21 12/24/22 Inderjit Ugalde MD [address] [facility] [address] [place] [address] Assigned Surgical Provider 02/15/21 08/20/22 Wesley Barrett MD [address] [facility] [address] [place] [address] Assigned Neuroscience Provider 05/10/21 Charles Jaramillo PA-C [address] [facility] [address] [place] [address] Assigned Musculoskeletal Provider 04/26/21 10/15/22 Miranda Queen [facility] [address] [place] [address] Assigned MTM Pharmacist 12/05/21 03/26/22 [place] [address] [place] [address] Assigned PCP 01/23/22 05/14/22 Miranda Queen [facility] [address] [place] [address] Assigned MTM Pharmacist 04/07/22 05/14/22 [place] [address] [place] [address] Assigned PCP 05/15/22 Katiana Read MD [address] [place] [address] Assigned Endocrinology Provider 06/19/22 [place]e Sing[place], PhD [address] [place] [address] Assigned Behavioral Health Provider 07/03/22 12/31/22 Deena Garza APRN TAPE MAKER [address] [place] [address] Assigned Pain Medication Provider 07/19/22 10/29/22 Mary Del Cid, RAFAEL [address] [facility] [address] [place] [address] Nurse Practitioner Nurse Practitioner 10/18/22 Elham Stack, [facility] [address] [place], [place] [address] Pharmacist Pharmacist 10/19/22 Emerita Potter, [facility] Clinic Supervisor Grading Manager Shipping - Clinical 10/29/22 11/02/22 Mary Del Cid, RAFAEL [address] [place] [address] Assigned Pain Medication Provider 10/30/22 12/03/22 Michelle Guzman, DPM, Podiatry/Foot and Ankle Surgery [address] [place] [address] Assigned Musculoskeletal Provider 10/16/22 04/08/23 [place] [address] [place] [address] Assigned Pain Medication Provider 12/04/22 04/01/23 [place] [address] [facility] [address] [place] [address] Nurse Practitioner Nurse Practitioner 01/17/23 01/17/23 Aubrey Jones MD [address] [place] [address] Cardiovascular Disease 03/28/23 Blanquita Morales Adjunct Sociology Professor Diabetes Education 04/25/23 Aubrey Jones MD [address] [place] [address] Assigned Heart and Vascular Provider 05/07/23 documented as of this encounter
--- OUTSIDE RECORDS SUMMARY | 2023-08-03 10:19 | XMS_ITS | Encounter Summary ---
Author Name Unknown Organization [place] Address [address] [place] [address]. [place] [address] Care Team Providers Care Outsole Rounder Name Role Phone Len Adhikari MD Primary Care Provider Jovany Gonzalez MD Unavailable CrissyStaci jeong CLOUD AUTOMATION TESTER Unavailable [phone] Len Adhikari MD Unavailable Reanna Smith RD Unavailable Jamshid Granados MD Unavailable Katiana Read MD Unavailable [phone] Jovita Daly MD Unavailable +[phone] Alexander López MD Unamarcelina lable Jese Doyle MD Unavailable [phone] Roshni Nascimento RN Unavailable Unavailable Johana Groves [facility] Unavailable [phone] Kiet Swain MD Unavailable [phone] Winsome Pike APRN ROLL CLEANER Unavailable [phone] Tori Hines [facility] Unavailable Miranda Queen [facility] Unavailable Unavailable Winsome Pike APRN ROLL CLEANER Unavailable Marisel Armando MD Unavailable Marisel Armando MD Unavailable Inderjit Ugalde MD Unavailable [phone] Wesley Barrett MD Unavailable +[phone] EllaCharles jimenez Michele GEIGER Unavailable +[phone] Miranda Queen [facility] Unavailable Unavailable Leeann Rinaldi MD Unavailable Miranda Queen [facility] Unavailable Unavailable Dyan Fuentes MD Primary Care Provider [phone] Dyan Feuntes MD Unavailable [phone] Katiana Read MD Unavailable [phone] Meme Singleton PhD Unavailable [phone] Deena Garza APRN ROLL CLEANER Unavailable +[phone] Mary Del Cid NP Unavailable + [phone] Elham Stack [facility] Unavailable [phone] Emerita Potter [facility] Unavailable [phone] Mary Del Cid NP Unavailable + [phone] Michelle Guzman DPM, Podiatry /Foot and Ankle Surgery Unavailable Dyan Fuentes MD Unavailable [phone] Mary Del Cid NP Unavailable [phone] Aubrey Jones MD Unavailable [phone] Blanquita Morales Unavailable Unavailable Aubrey Jones MD Unavailable [phone] Reason for Visit * Reason Onset Date Comments Patient Request 07/25/2019 Sleep study resu lts 06/11/19 Encounter Details Date Type Department Care Team (Late st Contact Info) Description 07/25/2019 [facility] [address] [place] [phone] Alexander López MD [address] [facility] [address] [place], [place] [address] Patient Request (Sleep study results 06/11/19) Social History Tobacco Use Types Packs/Day Years [...] encounter Miscellaneous Notes * Telephone Encounter - Thee Whitfield - 07/25/2019 11:28 AM CST Reason for call: Other Patient called regarding (reason for call): sleep study results from 06/11/19 Additional comments: Patient requests regarding sleep study results 1. Please upload results into ROKT 2. Please mail a paper copy to home address (confirmed address is current. 3. Please call and let patient know what the next steps are, whether she need a machine or not, where to go and phone numbers for home medical to schedule any applicable fittings etc Phone number to reach patient: Home number on file [phone] (home) Best Time: any Can we leave a detailed message on this number? YES ITY WORKER DRIVER documented in this encounter Plan of Treatment Upcoming Encounters Date Type Department Care Team ([facility] st Contact Info) Description 08/18/2023 3:00 PM UTILITY WORKER DRIVER Office Visit [facility] [address] [place] [address] Katiana Read MD [address] [facility] [address] [place] [address] documented as of this encounter Visit Diagnoses Not on filedocumented in this encounter Additional Health Concerns Infection Onset Date Last Indicated Resolved Time Rule Out COVID-19 08/19/2020 08/19/2020 08/19/2020 4:40 PM UTILITY WORKER DRIVER Rule Out C-difficile 02/27/2021 02/27/2021 021 6:10 [...] documented as of this encounter Care Teams Outsole Rounder Relationship Specialty Start Date End Date Len Adhikari MD PCP - General Family Practice 11/08/16 05/09/22 [place] [address] [place] [address] PCP - General Family Medicine 05/18/22 Jovany Gonzalez MD [facility] [address] [facility] 605 [place] [address] Orthopedics 02/15/17 Staci Woodward CLOUD AUTOMATION TESTER [address] [place] [address] Nurse Practitioner Nurse Practitioner Psych/Mental Health 05/10/17 [place] [address] [place] [address] Assigned PCP 11/14/16 01/22/[address] [facility] [address] [place] [address] Supervisor Welding Equipment Repairer Dietitian, Registered 07/25/19 [place] [address] [facility] [address] [place] [address] Assigned Musculoskeletal Provider 05/02/20 09/13/20 Katiana Read MD [address] [place], [place] [address] Assigned Endocrinology Provider 05/02/20 08/01/21 Jovita Daly MD [address] [place] [address] Assigned Surgical Provider 05/02/20 10/04/20 Alexander López MD [address] [place], [place] [address] Assigned Sleep Provider 05/02/20 11/15/20 Jese Doyle MD [address] [facility] [address] [place], [place] [address] Assigned Pulmonology Provider 05/02/20 04/11/21 Roshni Nascimento, RN Personal Advocate & Liaison (PAL) Family Medicine 08/18/20 Johana Groves [facility] [address] [place] [phone] Pharmacist Pharmacist 08/28/20 11/26/20 Kiet Swain MD [address] [place], [place] [address] [place] [address] Referring Physician Psychiatry 09/19/20 Winsome Pike APRN ROLL CLEANER [address] [place] [address] [id number] Nurse Practitioner Psychiatry 09/19/20 Tori Hines [facility] [address] [place] [address]174 Liquefaction And Regasification Helper Liquefaction And Regasification Helper - Clinical 09/19/20 [facility] [address] [place] [address] Pharmacist Pharmacist 11/12/20 Winsome Pike APRN ROLL CLEANER [address] [place] [address] 485474 Assigned Behavioral Health Provider 01/04/21 07/02/22 Marisel Armando MD [address] [place] [address] [id number] Gastroenterology 02/05/21 Marisel Armando MD [address] [place] [address] Assigned Gastroenterology Provider 03/08/21 12/24/22 Inderjit Ugalde MD [address] [place] [address] Assigned Surgical Provider 02/15/21 08/20/22 Wesley Barrett MD [address] [facility] 96 [place] [address] Assigned Neuroscience Provider 05/10/21 Charles Jaramillo PA-C [address] [facility] [address] [place] [address] Assigned Musculoskeletal Provider 04/26/21 10/15/22 Miranda Queen [facility] [address] [place] [address] Assigned MTM Pharmacist 12/05/21 03/26/22 [place] [address] [place] [address] Assigned PCP 01/23/22 05/14/22 Miranda Queen [facility] [address] [place] [address] Assigned MTM Pharmacist 04/07/22 05/14/22 [place] [address] [place] [address] Assigned PCP 05/15/22 Katiana Read MD [address] [facility] [address] [place], [place] [address] Assigned Endocrinology Provider 06/19/22 Meme Singleton, PhD [address] [place] [address] Assigned Behavioral Health Provider 07/03/22 12/31/22 Deena Garza APRN ROLL CLEANER [address] [address] [place] [address] Assigned Pain Medication Provider 07/19/22 10/29/22 [place] [address] [address] [place] [address] Nurse Practitioner Nurse Practitioner 10/18/22 Elham Stack, [facility] [address] [place], [place] [address] Pharmacist Pharmacist 10/19/22 Emerita Potter, [facility] Clinic Vessel Scrapper Helper Liquefaction And Regasification Helper - Clinical 10/29/22 11/02/22 [place] [address] [facility] [place] [address] Assigned Pain Medication Provider 10/30/22 12/03/22 Michelle Guzman DPM, Podiatry/Foot and Ankle Surgery [address] [place] [address] Assigned Musculoskeletal Provider 10/16/22 04/08/23 [place] [address] [place] [address] Assigned Pain Medication Provider 12/04/22 04/01/23 [place] [address] [address] [place] [address] Nurse Practitioner Nurse Practitioner 01/17/23 01/17/23 Aubrey Jones MD [address] [place] [address] Cardiovascular Disease 03/28/23 Blanquita Morales Supervisor Welding Equipment Repairer Diabetes Education 04/25/23 Aubrey Jones MD [address] [place] [address] Assigned Heart and Vascular Provider 05/07/23 documented as of this encounter
--- OUTSIDE RECORDS SUMMARY | 2023-08-03 10:19 | XMS_ITS | Encounter Summary ---
Author Name Unknown Organization [facility] Address [address] [place] [address]. [place] [address] Care Team Providers Care Development Trainer Name Role Phone Len Adhikari MD Primary Care Provider [phone] Jovany Gonzalez MD Unavailable [phone] CrissyStaci jeong BLOOMING MILL SUPERVISOR Unavailable [phone] Len Adhikari MD Unavailable Reanna Smith [address] Unavailable [phone] Jamshid Granados MD Unavailable +[phone] Katiana Read MD Unavailable [phone] Jovita Daly MD Unavailable +[phone] Alexander López MD Unamarcelina lable Jese Doyle MD Unavailable +[phone] Roshni Nascimento RN Unavailable Unavailable Johana Gorves [facility] Unavailable Kiet Swain MD Unavailable [phone] Winsome Pike APRN PANTRY CHEF Unavailable +[phone] Tori Hines [facility] Unavailable Miranda Queen [facility] Unavailable Unavailable Winsome Pike APRN PANTRY CHEF Unavailable Marisel Armando MD Unavailable Marisel Armando MD Unavailable Inderjit Ugalde MD Unavailable [phone] Wesley Barrett MD Unavailable +[phone] EllaCharles jimenez Michele GEIGER Unavailable +[phone] Miranda Queen [facility] Unavailable Unavailable Leeann Rinaldi MD Unavailable Miranda Queen [facility] Unavailable Unavailable Dyan Fuentes MD Primary Care Provider [phone] Dyan Fuentes MD Unavailable [phone] Katiana Read MD Unavailable [phone] Meme Singleton PhD Unavailable +[phone] Deena Garza APRN PANTRY CHEF Unavailable +[phone] Mary Del Cid NP Unavailable + [phone] Elham Stack [facility] Unavailable [phone] Emerita Potter [facility] Unavailable [phone] Mary Del Cid NP Unavailable + [phone] Michelle Guzman DPM, Podiatry /Foot and Ankle Surgery Unavailable Dyan Fuentes MD Unavailable [phone] Mary Del Cid NP Unavailable + [phone] Aubrey Jones MD Unavailable +[phone] Blanquita Morales Unavailable Unavailable Aubrey Jones MD Unavailable [phone] Encounter Details Date Type Department Care Team (Late st Contact Info) Description 08/15/2019 [facility] [address] [address] [place] [address] [place] [address] Social History Tobacco Use Types Packs/Day Years [...] st Contact Info) Description 08/18/2023 3:[address] MAN Office Visit [facility] [address] [facility] [address] [place] [address] Katiana Read MD [address] [place] [address] documented as of this encounter Visit Diagnoses Not on filedocumented in this encounter Additional Health Concerns Infection Onset Date Last Indicated Resolved Time Rule Out COVID-19 08/19/2020 08/19/2020 08/19/2020 4:[address] MAN Rule Out C-difficile 02/27/2021 02/27/2021 021 6:10 [...] documented as of this encounter Care Teams Development Trainer Relationship Specialty Start Date End Date Len Adhikari MD PCP - General Family Practice 11/08/16 05/09/22 [place] [address] [place] [address] PCP - General Family Medicine 05/18/22 Jovany Gonzalez MD [facility] 6600 [facility] 605 [place], [place] [address] Orthopedics 02/15/17 Staci Woodward NP [facility] [address] [place], [place] 30[address]17 Nurse Practitioner Nurse Practitioner Psych/Mental Health 05/10/17 [place] [address] [place] [place] [address] Assigned PCP 11/14/16 01/22/[address] [facility] [address] [place], [place] [address] Boom Boss Dietitian, Registered 07/25/19 [place] [address] [facility] 300 [place], [place] [address] Assigned Musculoskeletal Provider 05/02/20 09/13/20 Katiana Read MD [address] [facility] 200 [place], [place] 65[address] Assigned Endocrinology Provider 05/02/20 08/01/21 Jovita Daly MD [address] [place], [place] [address] Assigned Surgical Provider 05/02/20 10/04/20 Alexander López MD 606 [facility] 106 [place], [place] 404034 Assigned Sleep Provider 05/02/20 11/15/20 Jese Doyle MD 909 [place], [place] 6[address] Assigned Pulmonology Provider 05/02/20 04/11/21 Roshni Nascimento, RN Personal Advocate & Liaison (PAL) Family Medicine 08/18/20 Johana Groves, [facility] [address] [facility] [address] [place], [place] [id number] Pharmacist Pharmacist 08/28/20 11/26/20 Kiet Swain MD [address] [place], [place] [address] [place], [place] [address] Referring Physician Psychiatry 09/19/20 Winsome Pike APRN PANTRY CHEF [address] [address] Nurse Practitioner Psychiatry 09/19/20 Tori Hines, [facility] 2450 [place], [place] 69[address] Chair Spring Assembler Chair Spring Assembler - Clinical 09/19/20 Miranda Queen [facility] [address] [place] [address] Pharmacist Pharmacist 11/12/20 Winsome Pike APRN PANTRY CHEF [facility] [place] [address] 079044 Assigned Behavioral Health Provider 01/04/21 07/02/22 [place] [address] [place] [address] [phone] Gastroenterology 02/05/21 Marisel Armando MD [address] [place] [address] [id number] Assigned Gastroenterology Provider 03/08/21 12/24/22 Inderjit Ugalde MD [address] [facility] 300 [place], [place] 44[address] Assigned Surgical Provider 02/15/21 08/20/22 Wesley Barrett MD [address] [facility] 96 [place], [place] 3[address]65 Assigned Neuroscience Provider 05/10/21 Charles Jaramillo PA-C [address] [address] Assigned Musculoskeletal Provider 04/26/21 10/15/22 [place] [address] [place] [address] Assigned MTM Pharmacist 12/05/21 03/26/22 [place] [address] [place] [address] Assigned PCP 01/23/22 05/14/22 Miranda Queen [facility] [address] [place] [address] Assigned MTM Pharmacist 04/07/22 05/14/22 [place] [address] [place] [address] Assigned PCP 05/15/22 Katiana Read MD [address] [place] [address] Assigned Endocrinology Provider 06/19/22 [place] [address] [place] [address] Assigned Behavioral Health Provider 07/03/22 12/31/22 Deena Garza APRN PANTRY CHEF [address] [place] [address] Assigned Pain Medication Provider 07/19/22 10/29/22 Mary Del Cid, RAFAEL [address] [place] [address] Nurse Practitioner Nurse Practitioner 10/18/22 Elham Stack, [facility] 3033 [place] [address] Pharmacist Pharmacist 10/19/22 Emerita Potter, [facility] Clinic Core Assembly Supervisor Chair Spring Assembler - Clinical 10/29/22 11/02/22 [place] [address] [address] [place] [address] Assigned Pain Medication Provider 10/30/22 12/03/22 Michelle Guzman, DPM, Podiatry/Foot and Ankle Surgery [address] [place] [address] Assigned Musculoskeletal Provider 10/16/22 04/08/23 [place] [address] [place] [address] Assigned Pain Medication Provider 12/04/22 04/01/23 [place] [address] [place] [address] Nurse Practitioner Nurse Practitioner 01/17/23 01/17/23 Aubrey Jones MD [address] [place] [address] Cardiovascular Disease 03/28/23 Blanquita Morales Boom Boss Diabetes Education 04/25/23 Aubrey Jones MD [address] [place] [address] Assigned Heart and Vascular Provider 05/07/23 documented as of this encounter
--- OUTSIDE RECORDS SUMMARY | 2023-08-03 10:19 | XMS_ITS | Encounter Summary ---
Author Name Unknown Organization [facility] Address [address] [place] [address]. [place] [address] Care Team Providers Care Rn Iv Therapy Name Role Phone Len Adhikari MD Primary Care Provider Jovany Gonzalez MD Unavailable CrissyStaci jeong PRODUCTION ILLUSTRATOR Unavailable [phone] Len Adhikari MD Unavailable Reanna Smith [address] Unavailable Jamshid Granados MD Unavailable Katiana Read MD Unavailable [phone] Jovita Daly MD Unavailable [phone] Alexander López MD Unamarcelina lable Jese Doyle MD Unavailable +[phone] Roshni Nascimento RN Unavailable Unavailable Johana Groves [facility] Unavailable +[phone] Kiet Swain MD Unavailable [phone] Winsome Pike APRN FITNESS AND WELLNESS MANAGER Unavailable +[phone] Tori Hines [facility] Unavailable Miranda Queen [facility] Unavailable Unavailable Winsome Pike APRN FITNESS AND WELLNESS MANAGER Unavailable Marisel Armando MD Unavailable Marisel Armando MD Unavailable Inderjit Ugalde MD Unavailable [phone] Wesley Barrett MD Unavailable +[phone] EllaCharles jimenez Michele GEIGER Unavailable +[phone] Miranda Queen [facility] Unavailable Unavailable Leeann Rinaldi MD Unavailable Miranda Queen [facility] Unavailable Unavailable Dyan Fuentes MD Primary Care Provider [phone] Dyan Fuentes MD Unavailable [phone] Katiana Read MD Unavailable [phone] Meme Singleton PhD Unavailable [phone] Deena Garza APRN FITNESS AND WELLNESS MANAGER Unavailable +[phone] Mayr Del Cid NP Unavailable + [phone] Elham Stack [facility] Unavailable [phone] Emerita Potter [facility] Unavailable [phone] Mary Del Cid NP Unavailable + [phone] Michelle Guzman DPM, Podiatry /Foot and Ankle Surgery Unavailable Dyan Fuentes MD Unavailable [phone] Mary Del Cid NP Unavailable + [phone] Aubrey Jones MD Unavailable [phone] Blanquita Morales Unavailable Unavailable Aubrey Jones MD Unavailable [phone] Encounter Details Date Type Department Care Team (Late st Contact Info) Description 05/30/2019 [facility] [address] [address] [place] [address] [place] [address] Social History Tobacco Use Types Packs/Day Years [...] Info) Description 08/18/2023 3:00 PM SENIOR ADMINISTRATIVE ASSISTANT Office Visit [facility] [address] [facility] [address] [place] [address] Katiana Read MD [address] [place] [address] documented as of this encounter Visit Diagnoses Not on filedocumented in this encounter Additional Health Concerns Infection Onset Date Last Indicated Resolved Time Rule Out COVID-19 08/19/2020 08/19/2020 08/19/2020 4:40 PM SENIOR ADMINISTRATIVE ASSISTANT Rule Out C-difficile 02/27/2021 02/27/2021 021 [...] as of this encounter Care Teams Rn Iv Therapy Relationship Specialty Start Date End Date Len Adhikari MD PCP - General Family Practice 11/08/16 05/09/22 [place] [address] [place] [address] PCP - General Family Medicine 05/18/22 Jovany Gonzalez MD [facility] 6600 [facility] 605 [place], [place] [address] Orthopedics 02/15/17 Staci Woodward NP [facility] [address] [place], [place] 0[address]67 Nurse Practitioner Nurse Practitioner Psych/Mental Health 05/10/17 [place] [address] [place] [address] Assigned PCP 11/14/16 01/22/[address] [facility] [address] [place], [place] 9[address]67 Feeder Tender Dietitian, Registered 07/25/19 [place] [address] [facility] 300 [place], [place] [address]37 Assigned Musculoskeletal Provider 05/02/20 09/13/20 Katiana Read MD [address] [facility] 200 [place], [place] [address] Assigned Endocrinology Provider 05/02/20 08/01/21 Jovita Daly MD [address] [place], [place] [address] Assigned Surgical Provider 05/02/20 10/04/20 Alexander López MD 606 [facility] 106 [place], [place] 32[address]64 Assigned Sleep Provider 05/02/20 11/15/20 Jese Doyle MD 909 [place], [place] 397[address] Assigned Pulmonology Provider 05/02/20 04/11/21 Roshni Nascimento, RN Personal Advocate & Liaison (PAL) Family Medicine 08/18/20 Johaan Groves, [facility] [address] [facility] [address] [place], [place] [address] Pharmacist Pharmacist 08/28/20 11/26/20 Kiet Swain MD [address] [place], [place] [address] [place], [place] [address] Referring Physician Psychiatry 09/19/20 Winsome Pike APRN FITNESS AND WELLNESS MANAGER [address] [address] Nurse Practitioner Psychiatry 09/19/20 Tori Hines, [facility] 2450 [place], [place] [address] Inspector And Clerk Inspector And Clerk - Clinical 09/19/20 Miranda Queen [facility] [address] [place] [address] Pharmacist Pharmacist 11/12/20 Winsome Pike APRN FITNESS AND WELLNESS MANAGER [facility] [place] [address] Assigned Behavioral Health Provider 01/04/21 07/02/22 Marisel Armando MD [address] [place] [address] [id number] Gastroenterology 02/05/21 Marisel Armando MD [address] [place] [address]805 Assigned Gastroenterology Provider 03/08/21 12/24/22 Inderjit Ugalde MD [address] [facility] 300 [place], [place] 8[address]387 Assigned Surgical Provider 02/15/21 08/20/22 Wesley Barrett MD 420 [facility] 96 [place], [place] 7[address] Assigned Neuroscience Provider 05/10/21 Charles Jaramillo PA-C [address] [address] Assigned Musculoskeletal Provider 04/26/21 10/15/22 [place] [address] [place] [address] Assigned MTM Pharmacist 12/05/21 03/26/22 [place] [address] [place] [address] Assigned PCP 01/23/22 05/14/22 Miranda Queen [facility] [address] [place] [address] Assigned MTM Pharmacist 04/07/22 05/14/22 [place] [address] [place] [address] Assigned PCP 05/15/22 Katiana Read MD [address] [place] [address] Assigned Endocrinology Provider 06/19/22 [place] [address] [place] [address] Assigned Behavioral Health Provider 07/03/22 12/31/22 Deena Garza APRN FITNESS AND WELLNESS MANAGER [address] [place] [address] Assigned Pain Medication Provider 07/19/22 10/29/22 Mary Del Cid, RAFAEL [address] [place] [address] Nurse Practitioner Nurse Practitioner 10/18/22 Elham Stack, [facility] [address] [place] [address] Pharmacist Pharmacist 10/19/22 Emerita Potter, [facility] Clinic Fish Smoker Inspector And Clerk - Clinical 10/29/22 11/02/22 [place] [address] [place] [address] Assigned Pain Medication Provider 10/30/22 12/03/22 Michelle Guzman, DPM, Podiatry/Foot and Ankle Surgery [address] [place] [place] [address] Assigned Musculoskeletal Provider 10/16/22 04/08/23 [place] [address] [place] [address] Assigned Pain Medication Provider 12/04/22 04/01/23 [place] [address] [place] [address] Nurse Practitioner Nurse Practitioner 01/17/23 01/17/23 Aubrey Jones MD [address] [place] [address] Cardiovascular Disease 03/28/23 Blanquita Morales Feeder Tender Diabetes Education 04/25/23 Aubrey Jones MD [address] [place] [address] Assigned Heart and Vascular Provider 05/07/23 documented as of this encounter
--- OUTSIDE RECORDS SUMMARY | 2023-08-03 10:19 | XMS_ITS | Encounter Summary ---
Author Name Unknown Organization [facility] Address [address] [place] [address]. [place] [address] Care Team Providers Care Html Web Developer Name Role Phone Len Adhikari MD Primary Care Provider Jovany Gonzalez MD [facility]available [facility] Un[facility] [phone] [facility] Unavailable Len Adhikari MD Unavailable Laurita Yang RN Unavailable Reanna Smith RD Unavailable [phone] Jamshid Granados MD Unavailable [phone] Katiana Read MD Unavailable +[phone] Jovita Daly MD Unavailable Alexander López MD Unavai lable Jese Doyle MD Unavailable [phone] Roshni Nascimento RN Unavailable Unavailable Jhoana Groves [facility] Unavailable +[phone] Kiet Swain MD Unavailable [phone] Winsome Pike APRN ROLLER PRINTER Unavailable +[phone] Tori HinesSW Unavailable Miranda Queen [facility] Unavailable Unavailable Winsome Pike APRN ROLLER PRINTER Unavailable [phone] Marisel Armando MD Unavailable Marisel Armando MD Unavailable Inderjit Ugalde MD Unavailable [phone] Wesley Barrett MD Unavailable +[phone] Charles Jaramillo PA-C Unavailable +[phone] Miranda Queen [facility] Unavailable Unavailable Leeann Rinaldi MD Unavailable Miranda Queen [facility] Unavailable Unavailable Dyan Fuentes MD Primary Care Provider [phone] Dyan Fuentes MD Unavailable [phone] Katiana Read MD Unavailable [phone] Meme Singleton PhD Unavailable +[phone] Deena Garza PUBLIC ADMINISTRATION PROFESSOR ROLLER PRINTER Unavailable +[phone] Mary Del Cid NP Unavailable + [phone] Elham Stack [facility] Unavailable [phone] [address] Emerita M NETWORKS SOFTWARE CONSULTANT Unavailable +[phone] Mary Del Cid NP Unavailable + [phone] Michelle Guzman DPM, Podiatry /Foot and Ankle Surgery Unavailable Dyan Fuentes MD Unavailable +[phone] Mary Del Cid NP Unavailable + [phone] Aubrey Jones MD Unavailable [phone] Blanquita Morales Unavailable Unavailable Aubrey Jones MD Unavailable [phone] Encounter Details Date Type Department Care Team (Late st Contact Info) Description 01/26/2019 [facility] Medical Advice [facility] [address] [place] [address] Criselda Ma APRN ROLLER PRINTER Social History Tobacco Use Types Packs/Day Years [...] st Contact Info) Description 08/18/2023 3:00 PM SCARF GLUER Office Visit [facility] [address] [place] [address] Katiana Read MD [address] [place] [address] documented as of this encounter Visit Diagnoses Not on filedocumented in this encounter Additional Health Concerns Infection Onset Date Last Indicated Resolved Time Rule Out COVID-19 08/19/2020 08/19/2020 08/19/2020 4:40 PM SCARF GLUER Rule Out C-difficile 02/27/2021 02/27/2021 021 6:10 [...] documented as of this encounter Care Teams Html Web Developer Relationship Specialty Start Date End Date Len Adhikari MD PCP - General Family Practice 11/08/16 05/09/22 [place] [address] [place] [address] PCP - General Family Medicine 05/18/22 Jovany Gonzalez MD [facility] 6600 [facility] 605 [place], [place] [address] Orthopedics 02/15/17 Staci Woodward, TRANSPORTATION PROJECT MANAGER [facility] [address] [place], [place] [address] Nurse Practitioner Nurse Practitioner Psych/Mental Health 05/10/17 [facility] ([facility] ([place]) 02/16/18 04/12/19 [place] [address] [facility] [place] [address] Assigned PCP 11/14/16 01/22/22 Laurita Yang, RN Lead Mixing Technician 01/08/19 9 Reanna Smith, RD [facility] [address] [place] [address] Asp Net Mvc Developer Dietitian, Registered 07/25/19 [place] [address] [facility] [address] [place], [place] [address] Assigned Musculoskeletal Provider 05/02/20 09/13/20 Katiana Read MD [address] [place], [place] [address] Assigned Endocrinology Provider 05/02/20 08/01/21 Jovita Daly MD [address] [facility] [address] Assigned Surgical Provider 05/02/20 10/04/20 Alexander López MD [address] [place], [place] [address] Assigned Sleep Provider 05/02/20 11/15/20 Jese Doyle MD 909 [facility] [place], [place] [address] Assigned Pulmonology Provider 05/02/20 04/11/21 Roshni Nascimento RN Personal Advocate & Liaison (PAL) Family Medicine 08/18/20 [facility] [address] [place] [address] Pharmacist Pharmacist 08/28/20 11/26/20 Kiet Swain MD [address] [place], [place] [address] Referring Physician Psychiatry 09/19/20 Winsome Pike, VIDHI ROLLER PRINTER [address] [place] [address] Nurse Practitioner Psychiatry 09/19/20 Tori Hines [facility] 2450 [place], [place] [address] Inspector Toys Inspector Toys - Clinical 09/19/20 Miranda Queen [facility] [address] [place] [address] Pharmacist Pharmacist 11/12/20 Winsome Pike APRN ROLLER PRINTER [address] [place] [address] [phone] Assigned Behavioral Health Provider 01/04/21 07/02/22 Marisel Armando MD [address] [place] [address] 839635 Gastroenterology 02/05/21 Marisel Armando MD [address] [place] [address] 641215 Assigned Gastroenterology Provider 03/08/21 12/24/22 Inderjit Ugalde MD [address] [facility] 300 [place], [place] [address]37 Assigned Surgical Provider 02/15/21 08/20/22 Wesley Barrett MD [address] [place] [address] 96 [place], [place] [address] Assigned Neuroscience Provider 05/10/21 Charles Jaramillo PA-C [address] [address] Assigned Musculoskeletal Provider 04/26/21 10/15/22 [facility] [address] [place] [address] Assigned MTM Pharmacist 12/05/21 03/26/22 [place] [address] [place] [address] Assigned PCP 01/23/22 05/14/22 [facility] [address] [place] [address] Assigned MTM Pharmacist 04/07/22 05/14/22 [place] [address] [place] [address] Assigned PCP 05/15/22 Katiana Read MD [address] [place] [address] Assigned Endocrinology Provider 06/19/22 [place] [address] [place] [address] Assigned Behavioral Health Provider 07/03/22 12/31/22 Deena Garza, PUBLIC ADMINISTRATION PROFESSOR ROLLER PRINTER [address] [place] [address] Assigned Pain Medication Provider 07/19/22 10/29/22 Mary Del Cid, RAFAEL [address] [place] [address] Nurse Practitioner Nurse Practitioner 10/18/22 Elham Stack, [facility] [address] [place] [address] Pharmacist Pharmacist 10/19/22 Emerita Potter, [facility] Clinic Mixing Technician Inspector Toys - Clinical 10/29/22 11/02/22 [place] [address] [place] [address] Assigned Pain Medication Provider 10/30/22 12/03/22 Michelle Guzman, ERIC, Podiatry/Foot and Ankle Surgery [address] [place] [address] Assigned Musculoskeletal Provider 10/16/22 04/08/23 [place] [address] [place] [address] Assigned Pain Medication Provider 12/04/22 04/01/23 [place] [address] [place] [address] Nurse Practitioner Nurse Practitioner 01/17/23 01/17/23 Aubrey Jones MD [address] [place] [address] Cardiovascular Disease 03/28/23 Blanquita Morales Asp Net Mvc Developer Diabetes Education 04/25/23 Aubrey Jones MD [address] [place] [address] Assigned Heart and Vascular Provider 05/07/23 documented as of this encounter
--- OUTSIDE RECORDS SUMMARY | 2023-08-03 10:19 | XMS_ITS | Encounter Summary ---
Author Name Unknown Organization [facility] Address [address] [place] [address]. [place] [address] Care Team Providers Care Combat Systems Engineer Name Role Phone Len Adhikari MD Primary Care Provider Jovany Gonzalez MD Unavailable CrissyStaci jeong RECREATIONAL LEADER Unavailable [phone] Len Adhikari MD Unavailable Reanna Smith RD Unavailable Jamshid Granados MD Unavailable [phone] Katiana Read MD Unavailable +[phone] Jovita Daly MD Unavailable +[phone] Alexander López MD Unamarcelina lable Jese Doyle MD Unavailable +[phone] Roshni Nascimento RN Unavailable Unavailable Johana Groves [facility] Unavailable Kiet Swain MD Unavailable [phone] Winsome Pike APRN BULL RIDER Unavailable +[phone] Tori Hines [facility] Unavailable Miranda Queen [facility] Unavailable Unavailable Winsome Pike APRN BULL RIDER Unavailable Marisel Amrando MD Unavailable Marisel Armando MD Unavailable Inderjit Ugalde MD Unavailable [phone] Wesley Barrett MD Unavailable +[phone] EllaCharles jimenez Michele GEIGER Unavailable +[phone] Miranda Queen [facility] Unavailable Unavailable Leeann Rinaldi MD Unavailable Miranda Queen [facility] Unavailable Unavailable Dyan Fuentes MD Primary Care Provider [phone] Dyan Fuentes MD Unavailable +[phone] Katiana Read MD Unavailable +[phone] Meme Singleton PhD Unavailable +[phone] Deena Garza APRN BULL RIDER Unavailable +[phone] Mary Del Cid NP Unavailable + [phone] Elham Stack [facility] Unavailable +[phone] Emerita Potter [facility] Unavailable +[phone] Mary Del Cid NP Unavailable + [phone] Michelle Guzman DPM, Podiatry /Foot and Ankle Surgery Unavailable Dyan Fuentes MD Unavailable [phone] Mary Del Cid NP Unavailable + [phone] Aubrey Jones MD Unavailable +[phone] Blanquita Morales Unavailable Unavailable Aubrey Jones MD Unavailable +[phone] Reason for Visit * Reason Onset Date Comments [employer] Communication 04/26/2019 Encounter Details Date Type Department Care Team (Late st Contact Info) Description 04/26/2019 [facility] [address] [place] [phone] [place] [address] [place] [address] MyChart Communication Social History Tobacco Use Types [...] st Contact Info) Description 08/18/2023 3:00 PM WASHING MACHINE LOADER Office Visit [facility] [address] [facility] [address] [place] [phone] Katiana Read MD [address] [place] [address] documented as of this encounter Visit Diagnoses Not on filedocumented in this encounter Additional Health Concerns Infection Onset Date Last Indicated Resolved Time Rule Out COVID-19 08/19/2020 08/19/2020 08/19/2020 4:40 PM WASHING MACHINE LOADER Rule Out C-difficile 02/27/2021 02/27/2021 021 6:10 [...] documented as of this encounter Care Teams Combat Systems Engineer Relationship Specialty Start Date End Date Len Adhikari MD PCP - General Family Practice 11/08/16 05/09/22 [place] [address] [place] [address] PCP - General Family Medicine 05/18/22 Jovany Gonzalez MD [facility] 6600 [facility] 605 [place], [place] [address] Orthopedics 02/15/17 Staci Woodward NP [facility] [address] [place], [place] [id number] Nurse Practitioner Nurse Practitioner Psych/Mental Health 05/10/17 [place] [address] [facility] [place] [address] Assigned PCP 11/14/16 01/22/[address] [facility] [address] [place], [place] [id number] Bung Dropper Dietitian, Registered 07/25/19 [place] [address] [facility] [address] [place], [place] [id number] Assigned Musculoskeletal Provider 05/02/20 09/13/20 Katiana Read MD [address] [facility] 200 [place], [place] [address] Assigned Endocrinology Provider 05/02/20 08/01/21 Jovita Daly MD [address] [place], [place] [address] Assigned Surgical Provider 05/02/20 10/04/20 Alexander López MD [address] [facility] 106 [place], [place] [address] Assigned Sleep Provider 05/02/20 11/15/20 Jese Doyle MD 909 [place] [address] Assigned Pulmonology Provider 05/02/20 04/11/21 Roshni Nascimento, RN Personal Advocate & Liaison (PAL) Family Medicine 08/18/20 Johana Groves, [facility] [address] [address] [place], [place] [phone] Pharmacist Pharmacist 08/28/20 11/26/20 Kiet Swain MD [address] [facility] [address] [place], [place] [address] Referring Physician Psychiatry 09/19/20 Winsome Pike APRN BULL RIDER [address] [place] [address] 873274 Nurse Practitioner Psychiatry 09/19/20 Tori Hines, [facility] 2450 [place], [place] [address]114 Paper Feeder Paper Feeder - Clinical 09/19/20 Miranda Queen [facility] [address] [place] [address] Pharmacist Pharmacist 11/12/20 Winsome Pike APRN BULL RIDER [address] [place] [address] 944694 Assigned Behavioral Health Provider 01/04/21 07/02/22 Marisel Armando MD [address] [place] [address] [id number] Gastroenterology 02/05/21 Marisel Armando MD [address] [place] [address] [phone] Assigned Gastroenterology Provider 03/08/21 12/24/22 Inderjit Ugalde MD [address] [address] Assigned Surgical Provider 02/15/21 08/20/22 Wesley Barrett MD [address] [place] [address] 96 [place], [place] [address] Assigned Neuroscience Provider 05/10/21 Charles Jaramillo PA-C 6545 [facility] [address] [address] Assigned Musculoskeletal Provider 04/26/21 10/15/22 Miranda Queen [facility] [address] [place] [address] Assigned MTM Pharmacist 12/05/21 03/26/22 [place] [address] [place] [address] Assigned PCP 01/23/22 05/14/22 Miranda Queen [facility] [address] [place] [address] Assigned MTM Pharmacist 04/07/22 05/14/22 [place] [address] [place] [address] Assigned PCP 05/15/22 Katiana Read MD [address] [address] Assigned Endocrinology Provider 06/19/22 Meme Singleton[place] PhD [address] [place] 79[address]07 Assigned Behavioral Health Provider 07/03/22 12/31/22 Deena Garza APRN BULL RIDER [address] [place] [address] Assigned Pain Medication Provider 07/19/22 10/29/22 Mary Del Cid, RAFAEL [address] [place] [address] Nurse Practitioner Nurse Practitioner 10/18/22 Elham Stack, [facility] 3033 [place] [address] Pharmacist Pharmacist 10/19/22 Emerita Potter, [facility] Clinic Air Brake Rigger Paper Feeder - Clinical 10/29/22 11/02/22 [place] [address] [place] [address] Assigned Pain Medication Provider 10/30/22 12/03/22 Michelle Guzman, DPM, Podiatry/Foot and Ankle Surgery [address] [place] [address] Assigned Musculoskeletal Provider 10/16/22 04/08/23 [place] [address] [place] [address] Assigned Pain Medication Provider 12/04/22 04/01/23 [place] [address] [place] [address] Nurse Practitioner Nurse Practitioner 01/17/23 01/17/23 Aubrey Jones MD [address] [place] [address] Cardiovascular Disease 03/28/23 Blanquita Morales Bung Dropper Diabetes Education 04/25/23 Aubrey Jones MD [address] [place] [address] Assigned Heart and Vascular Provider 05/07/23 documented as of this encounter
--- OUTSIDE RECORDS SUMMARY | 2023-08-03 10:19 | XMS_ITS | Encounter Summary ---
Author Name Unknown Organization [facility] Address [address] [place] [address]. [place] [address] Care Team Providers Care Multigrapher Name Role Phone Len Adhikari MD Primary Care Provider Jovany Gonzalez MD Unavailable CrissyStaci jeong REGIONAL RETAIL SALES MANAGER Unavailable [phone] Len Adhikari MD Unavailable Reanna Smith RD Unavailable Jamshid Granados MD Unavailable Katiana Read MD Unavailable [phone] Jovita Daly MD Unavailable +[phone] Alexander López MD Unamarcelina lable Jese Doyle MD Unavailable +[phone] Roshni Nascimento RN Unavailable Unavailable Johana Groves [facility] Unavailable Kiet Swain MD Unavailable [phone] Winsome Pike APRN SOLVENT PROCESS EXTRACTOR OPERATOR Unavailable +[phone] Tori Hines [facility] Unavailable Miranda Queen [facility] Unavailable Unavailable Winsome Pike APRN SOLVENT PROCESS EXTRACTOR OPERATOR Unavailable Marisel Armadno MD Unavailable Marisel Armando MD Unavailable Inderjit Ugalde MD Unavailable [phone] Wesley Barrett MD Unavailable +[phone] EllaCharles jimenez Michele GEIGER Unavailable +[phone] Miranda Queen [facility] Unavailable Unavailable Leeann Rinaldi MD Unavailable Miranda Queen [facility] Unavailable Unavailable Dyan Fuentes MD Primary Care Provider [phone] Dyan Fuentes MD Unavailable [phone] Katiana Read MD Unavailable [phone] Meme Singleton PhD Unavailable +[phone] Deena Garza APRN SOLVENT PROCESS EXTRACTOR OPERATOR Unavailable +[phone] Mary Del Cid NP Unavailable + [phone] Elham Stack [facility] Unavailable [phone] Emerita Potter [facility] Unavailable [phone] Mary Del Cid NP Unavailable + [phone] Michelle Guzman DPM, Podiatry /Foot and Ankle Surgery Unavailable Dyan Fuentes MD Unavailable [phone] Mary Del Cid NP Unavailable + [phone] Aubrey Jones MD Unavailable [phone] Blanquita Morales Unavailable Unavailable Aubrey Jones MD Unavailable [phone] Encounter Details Date Type Department Care Team (Late st Contact Info) Description 05/15/2019 [facility] [address] [address] [place] [address] [place] [address] Social History Tobacco Use Types Packs/Day Years [...] st Contact Info) Description 08/18/2023 3:00 PM CORE WINDER MACHINE OPERATOR Office Visit [facility] [address] [facility] [address] [place] [address] Katiana Read MD [address] [place] [address] documented as of this encounter Visit Diagnoses Not on filedocumented in this encounter Additional Health Concerns Infection Onset Date Last Indicated Resolved Time Rule Out COVID-19 08/19/2020 08/19/2020 08/19/2020 4:40 PM CORE WINDER MACHINE OPERATOR Rule Out C-difficile 02/27/2021 02/27/2021 [...] documented as of this encounter Care Teams Multigrapher Relationship Specialty Start Date End Date Len Adhikari MD PCP - General Family Practice 11/08/16 05/09/22 [place] [address] [place] [address] PCP - General Family Medicine 05/18/22 Jovany Gonzalez MD [facility] 6600 [facility] 605 [place], [place] [address] Orthopedics 02/15/17 Staci Woodward NP [facility] [address] [place], [place] [address] Nurse Practitioner Nurse Practitioner Psych/Mental Health 05/10/17 [place] [address] [facility] [place] [address] Assigned PCP 11/14/16 01/22/[address] [facility] [address] [place], [place] [address] Brass Reclaimer Dietitian, Registered 07/25/19 [place] [address] [facility] 300 [place], [place] 98[address] Assigned Musculoskeletal Provider 05/02/20 09/13/20 Katiana Read MD [address] [facility] 200 [place], [place] 87[address] Assigned Endocrinology Provider 05/02/20 08/01/21 Jovita Daly MD [address] [place], [place] 29[address]87 Assigned Surgical Provider 05/02/20 10/04/20 Alexander López MD 606 [address] 106 [place], [place] 17[address]74 Assigned Sleep Provider 05/02/20 11/15/20 Jese Doyle MD 909 [place], [place] 7[address] Assigned Pulmonology Provider 05/02/20 04/11/21 Roshni Nascimento, RN Personal Advocate & Liaison (PAL) Family Medicine 08/18/20 Johana Groves, [facility] [address] [facility] [address] [address] [place], [place] [address] Pharmacist Pharmacist 08/28/20 11/26/20 Kiet Swain MD [address] [place], [place] [address] [place], [place] [address] Referring Physician Psychiatry 09/19/20 Winsome Pike APRN SOLVENT PROCESS EXTRACTOR OPERATOR [address] [address] Nurse Practitioner Psychiatry 09/19/20 Tori Hines, [facility] 2450 [place], [place] 072084 Superintendent Storage Area Superintendent Storage Area - Clinical 09/19/20 Miranda Queen [facility] [address] [place] [address] Pharmacist Pharmacist 11/12/20 Winsome Pike APRN SOLVENT PROCESS EXTRACTOR OPERATOR [facility] [place] [address] 257884 Assigned Behavioral Health Provider 01/04/21 07/02/22 Marisel Armando MD [address] [place] [address] [id number] Gastroenterology 02/05/21 Marisel Armando MD [address] [place] [address] 225945 Assigned Gastroenterology Provider 03/08/21 12/24/22 Inderjit Ugalde MD [address] [facility] 300 [place], [place] 67[address]97 Assigned Surgical Provider 02/15/21 08/20/22 Wesley Barrett MD 420 [facility] 96 [place], [place] 9[address] Assigned Neuroscience Provider 05/10/21 Charles Jaramillo PA-C [address] [address] Assigned Musculoskeletal Provider 04/26/21 10/15/22 [place] [address] [place] [address] Assigned MTM Pharmacist 12/05/21 03/26/22 [place] [address] [place] [address] Assigned PCP 01/23/22 05/14/22 Miranda Queen [facility] [address] [place] [address] Assigned MTM Pharmacist 04/07/22 05/14/22 [place] [address] [place] [address] Assigned PCP 05/15/22 Katiana Read MD [address] [place] [address] Assigned Endocrinology Provider 06/19/22 Meme Singleton[place] PhD [address] [place] [address] Assigned Behavioral Health Provider 07/03/22 12/31/22 Deena Garza APRN SOLVENT PROCESS EXTRACTOR OPERATOR [address] [place] [address] Assigned Pain Medication Provider 07/19/22 10/29/22 Mary Del Cid, RAFAEL [address] [place] [address] Nurse Practitioner Nurse Practitioner 10/18/22 Elham Stack, [facility] 3033 [place] [address] Pharmacist Pharmacist 10/19/22 Emerita Potter, [facility] Clinic Community Relations Police Lieutenant Superintendent Storage Area - Clinical 10/29/22 11/02/22 [place] [address] [place] [address] Assigned Pain Medication Provider 10/30/22 12/03/22 Michelle Guzman, DPM, Podiatry/Foot and Ankle Surgery [address] [place] [address] Assigned Musculoskeletal Provider 10/16/22 04/08/23 [place] [address] [place] [address] Assigned Pain Medication Provider 12/04/22 04/01/23 [place] [address] [place] [address] Nurse Practitioner Nurse Practitioner 01/17/23 01/17/23 Aubrey Jones MD [address] [place] [address] Cardiovascular Disease 03/28/23 Blanquita Morales Brass Reclaimer Diabetes Education 04/25/23 Aubrey Jones MD [address] [place] [address] Assigned Heart and Vascular Provider 05/07/23 documented as of this encounter
--- OUTSIDE RECORDS SUMMARY | 2023-08-03 10:19 | XMS_ITS | Encounter Summary ---
Author Name Unknown Organization [facility] Address [address] [place] [address]. [place] [address] Care Team Providers Care Testing Coordinator Name Role Phone Len Adhikari MD Primary Care Provider Jovany Gonzalez MD Unavailable [phone] CrissyStaci jeong AMMUNITION ASSEMBLY II LABORER Unavailable [phone] Len Adhikari MD Unavailable Reanna Smith RD Unavailable Jamshid Granados MD Unavailable Katiana Read MD Unavailable [phone] Jovita Daly MD Unavailable [phone] Alexander López MD Unamarcelina lable Jese Doyle MD Unavailable +[phone] Roshni Nascimento RN Unavailable Unavailable Johana Groves [facility] Unavailable Kiet Swain MD Unavailable [phone] Winsome Pike APRN UNIT TRUST MANAGER Unavailable +[phone] Tori Hines [facility] Unavailable Miranda Queen [facility] Unavailable Unavailable Winsome Pike APRN UNIT TRUST MANAGER Unavailable Marisel Armando MD Unavailable Marisel Armando MD Unavailable Inderjit Ugalde MD Unavailable [phone] Wesley Barrett MD Unavailable +[phone] EllaCharles Michele GEIGER Unavailable +[phone] Miranda Queen [facility] Unavailable Unavailable Leeann Rinaldi MD Unavailable Miranda Queen [facility] Unavailable Unavailable Dyan Fuentes MD Primary Care Provider [phone] Dyan Fuentes MD Unavailable [phone] Katiana Read MD Unavailable [phone] Meme Singleton PhD Unavailable [phone] Deena Garza APRN UNIT TRUST MANAGER Unavailable [phone] Mary Del Cid NP Unavailable + [phone] Elham Stack [facility] Unavailable Emerita Potter [facility] Unavailable [phone] Mary Del Cid NP Unavailable + [phone] Michelle Guzman DPM, Podiatry /Foot and Ankle Surgery Unavailable Dyan Fuentes MD Unavailable [phone] Mary Del Cid NP Unavailable [phone] Aubrey Jones MD Unavailable [phone] Blanquita Morales Unavailable Unavailable Aubrey Jones MD Unavailable [phone] Encounter Details Date Type Department Care Team (Late st Contact Info) Description 06/12/2019 [facility] [address] [place] [address] Rachelle Benites, PATRICK Social History Tobacco Use Types Packs/Day Years [...] st Contact Info) Description 08/18/2023 3:00 PM PR SPECIALIST Office Visit [facility] [address] [facility] [address] [place] [address] Katiana Read MD [address] [address] [place], [place] 47[address] documented as of this encounter Visit Diagnoses Not on filedocumented in this encounter Additional Health Concerns Infection Onset Date Last Indicated Resolved Time Rule Out COVID-19 08/19/2020 08/19/2020 08/19/2020 4:40 PM PR SPECIALIST Rule Out C-difficile 02/27/2021 02/27/2021 021 6:10 [...] documented as of this encounter Care Teams Testing Coordinator Relationship Specialty Start Date End Date Len Adhikari MD PCP - General Family Practice 11/08/16 05/09/22 [place] [address] [place] [address] PCP - General Family Medicine 05/18/22 Jovany Gonzalez MD [facility] 6600 [facility] 605 [place], [place] [address] Orthopedics 02/15/17 Staci Woodward NP [place] [address] [address] [place], [place] 49[address] Nurse Practitioner Nurse Practitioner Psych/Mental Health 05/10/17 [place] [address] [facility] [place] [address] Assigned PCP 11/14/16 01/22/[address] [address] Supervisor Warping Department Dietitian, Registered 07/25/19 [place] [address] [facility] 300 [place], [place] [address] Assigned Musculoskeletal Provider 05/02/20 09/13/20 Katiana Read MD [address] [place] [address] 200 [place] [address] Assigned Endocrinology Provider 05/02/20 08/01/21 Jovita Daly MD [address] [place] [address] Assigned Surgical Provider 05/02/20 10/04/20 Alexander López MD 606 [facility] 106 [place], [place] 29[address] Assigned Sleep Provider 05/02/20 11/15/20 Jese Doyle MD 909 [place], [place] 5[address] Assigned Pulmonology Provider 05/02/20 04/11/21 Roshni Nascimento, RN Personal Advocate & Liaison (PAL) Family Medicine 08/18/20 Johana Groves, [facility] 14[address] [facility] [place] [address] Pharmacist Pharmacist 08/28/20 11/26/20 Kiet Swain MD 2450 [facility]15 [place], [place] [address] Referring Physician Psychiatry 09/19/20 Winsome Pike, VIDHI UNIT TRUST MANAGER [address] [place] [address] Nurse Practitioner Psychiatry 09/19/20 Tori Hines, [facility] 2450 [place] [address] Innersole Maker Innersole Maker - Clinical 09/19/20 Miranda Queen [facility] [address] [place] [address] Pharmacist Pharmacist 11/12/20 Winsome Pike APRN UNIT TRUST MANAGER [address] [place] [address] Assigned Behavioral Health Provider 01/04/21 07/02/22 Marisel Armando MD [address] [place] [address] Gastroenterology 02/05/21 Marisel Armando MD [address] [place] [address] Assigned Gastroenterology Provider 03/08/21 12/24/22 Inderjit Ugalde MD [address] [facility] 300 [place] [address] Assigned Surgical Provider 02/15/21 08/20/22 Wesley Barrett MD [address] [place] [address] Assigned Neuroscience Provider 05/10/21 Charles Jaramillo PA-C 6545 [facility] [address] [address] Assigned Musculoskeletal Provider 04/26/21 10/15/22 Miranda Queen [facility] [address] [place] [address] Assigned MTM Pharmacist 12/05/21 03/26/22 [place] [address] [place] [address] Assigned PCP 01/23/22 05/14/22 Miranda Queen [facility] [address] [place] [address] Assigned MTM Pharmacist 04/07/22 05/14/22 [place] [address] [place] [address] Assigned PCP 05/15/22 Katiana Read MD [address] [address] Assigned Endocrinology Provider 06/19/22 [place] [address] [address] [place] [address]37 Assigned Behavioral Health Provider 07/03/22 12/31/22 Deena Garza APRN UNIT TRUST MANAGER [address] [place] [address]27 Assigned Pain Medication Provider 07/19/22 10/29/22 Mary Del Cid, [place] [address] [place] 96[address]37 Nurse Practitioner Nurse Practitioner 10/18/22 Elham Stack, [facility] 3033 [place] [address] Pharmacist Pharmacist 10/19/22 Emerita Potter, [facility] Clinic Military Technician Innersole Maker - Clinical 10/29/22 11/02/22 [place] [address] [place] [address] Assigned Pain Medication Provider 10/30/22 12/03/22 Michelle Guzman DPM, Podiatry/Foot and Ankle Surgery [address] [place] [address] Assigned Musculoskeletal Provider 10/16/22 04/08/23 [place] [address] [place] [address] Assigned Pain Medication Provider 12/04/22 04/01/23 [place] [address] [place] [address] Nurse Practitioner Nurse Practitioner 01/17/23 01/17/23 Aubrey Jones MD [address] [place] [address] Cardiovascular Disease 03/28/23 Blanquita Morales Supervisor Warping Department Diabetes Education 04/25/23 Aubrey Jones MD [address] [place] [address] Assigned Heart and Vascular Provider 05/07/23 documented as of this encounter
--- OUTSIDE RECORDS SUMMARY | 2023-08-03 10:19 | XMS_ITS | Encounter Summary ---
Author Name Unknown Organization [facility] Address [address] [place] [address]. [place] [address] Care Team Providers Care Paper Tester Name Role Phone Len Adhikari MD Primary Care Provider Jovany Gonzalez MD [facility]available [facility] Unavailable [phone] [facility] Unavailable Len Adhikari MD Unavailable Laurita Yang RN Unavailable Reanna mSith RD Unavailable Jamshid Granados MD Unavailable [phone] Katiana Read MD Unavailable [phone] Jovita Daly MD Unavailable Alexander López MD Unavai lable Jese Doyle MD Unavailable [phone] Roshni Nascimento RN Unavailable Unavailable Johana Groves [facility] Unavailable Kiet Swain MD Unavailable Winsome Pike APRN MACHINE IRONER Unavailable [phone] Tori HinesSW Unavailable Miranda Queen [facility] Unavailable Unavailable Winsome Pike APRN MACHINE IRONER Unavailable [phone] Marisel Armando MD Unavailable Marisel Armando MD Unavailable Inderjit Ugalde MD Unavailable [phone] Wesley Barrett MD Unavailable [phone] Charles Jaramillo PA-C Unavailable [phone] Miranda Queen [facility] Unavailable Unavailable Leeann Rinaldi MD Unavailable Miranda Queen [facility] Unavailable Unavailable Dyan Fuentes MD Primary Care Provider [phone] Dyan Fuentes MD Unavailable [phone] Katiana Read MD Unavailable [phone] Meme Singleton PhD Unavailable [phone] Deena Garza FIRST AID INSTRUCTOR MACHINE IRONER Unavailable [phone] Mary Del Cid NP Unavailable + [phone] Elham Stack [facility] Unavailable [phone] Abbey Emerita M OIL RIGGER Unavailable [phone] Mary Del Cid NP Unavailable + [phone] Michelle Guzman DPM, Podiatry /Foot and Ankle Surgery Unavailable Dyan Fuentes MD Unavailable [phone] Mary Del Cid NP Unavailable [phone] Aubrey Jones MD Unavailable [phone] Blanquita Morales Unavailable Unavailable Aubrey Jones MD Unavailable [phone] Reason for Visit * Reason Comments Medication Refill multiple medications Encounter Details Date Type Department Care Team (Late st Contact Info) Description 03/04/2019 Refill [facility] [address] [place] [address] [place] [address] [place] [address] Medication Refill (multiple medications) Social History Tobacco Use Types Packs/Day Years [...] Telephone Encounter - Roshni Nascimento RN - 03/07/2019 11:04 AM CDT Prescription approved per [facility] Refill Protocol. For one time fill as pt does have f/u appt Roshni Nascimento RN * Telephone Encounter - Maggie White RRT - 03/04/2019 4:39 PM CDT Requested Prescriptions Pending Prescriptions Disp Refills ??? carvedilol (COREG) 12.5 MG tablet [Pharmacy Med Name: CARVEDILOL 12.5MG Last Written Prescription Date: 01/18/2019 Last Fill Quantity: 60, # refills: 0 Last office visit: 02/06/2019 with prescribing provider: 02/06/2019 Future Office Visit: Next 5 appointments (look out 90 days) Mar 21, 2019 3:00 PM CDT Return Visit with Katiana Read MD [facility] [address] [facility] [address] [facility] [address] TABLETS] 60 tablet 0 Sig: TAKE 1 TABLET BY MOUTH TWICE DAILY WITH MEALS Beta-Blockers Protocol Passed - 03/04/2019 4:28 PM Passed - Blood pressure under 140/90 in past 12 months BP Readings from Last 3 Encounters: 02/06/19 130/78 01/03/19 (!) 152/92 01/01/19 116/80 Passed - Patient is age 6 or older Passed - Recent (12 mo) or future (30 days) visit within the authorizing provider's specialty Patient had office visit in the last 12 months or has a visit in the next 30 days with authorizing provider or within the authorizing provider's specialty. See Patient Info tab in inbasket, or Choose Columns in Meds & Orders section of the refill encounter. Passed - Medication is active on med list ??? rosuvastatin (CRESTOR) 40 MG tablet [Pharmacy Med Name: ROSUVASTATIN 40MG TABLETS] Last Written Prescription Date: 07/24/2018 Last Fill Quantity: 90, # refills: 1 Last office visit: 02/06/2019 with prescribing provider: 02/06/2019 Future Office Visit: Next 5 appointments (look out 90 days) Mar 21, 2019 3:00 PM CDT Return Visit with Katiana Read MD [facility] [address] [facility] [address] [facility] [address] 90 tablet 0 Sig: TAKE 1 TABLET BY MOUTH EVERY DAY Statins Protocol Passed - 03/04/2019 4:28 PM Passed - LDL on file in past 12 months Recent Labs Lab Test 12/14/18 1525 LDL 21 Passed - No abnormal creatine kinase in past 12 months Recent Labs Lab Test 04/21/18 1851 CKT 36 Passed - Recent (12 mo) or future (30 days) visit within the authorizing provider's specialty Patient had office visit in the last 12 months or has a visit in the next 30 days with authorizing provider or within the authorizing provider's specialty. See Patient Info tab in inbasket, or Choose Columns in Meds & Orders section of the refill encounter. Passed - Medication is active on med list Passed - Patient is age 18 or older Passed - No active on record Passed - No positive test in past 12 months ??? albuterol (PROAIR HFA/PROVENTIL HFA/VENTOLIN HFA) 108 (90 Base) MCG/ACT inhaler Last Written Prescription Date: 02/08/2019 Last Fill Quantity: 1, # refills: 0 Last office visit: 02/06/2019 with prescribing provider: 02/06/2019 Future Office Visit: Next 5 appointments (look out 90 days) Mar 21, 2019 3:00 PM CDT Return Visit with Katiana Read MD [facility] [address] [facility] [address] [facility] [phone] 1 Inhaler 0 Sig: Inhale 2 puffs into the lungs every 4 hours as needed for shortness of breath / dyspnea or wheezing Asthma Maintenance Inhalers - Anticholinergics Passed - 03/04/2019 4:28 PM Passed - Patient is age 12 years or older Passed - Recent (12 mo) or future (30 days) visit within the authorizing provider's specialty Patient had office visit in the last 12 months or has a visit in the next 30 days with authorizing provider or within the authorizing provider's specialty. See Patient Info tab in inbasket, or Choose Columns in Meds & Orders section of the refill encounter. Passed - Medication is active on med list documented in this encounter Plan of Treatment Upcoming Encounters Date Type Department Care Team (Late st Contact Info) Description 08/18/2023 3:00 PM PRODUCT TESTER FIBERGLASS Office Visit [facility] [address] [place] [phone] Katiana Read MD [address] [place] [address] documented as of this encounter Visit Diagnoses Diagnosis Essential hypertension Unspecified essential hypertension Hypertriglyceridemia Pure hyperglyceridemia Hyperlipidemia LDL goal <100 Other and unspecified hyperlipidemia Chronic obstructive pulmonary disease, unspecified COPD type (H) documented in this encounter Additional Health Concerns Infection Onset Date Last Indicated Resolved Time Rule Out COVID-19 08/19/2020 08/19/2020 08/19/2020 4:40 PM PRODUCT TESTER FIBERGLASS Rule Out C-difficile 02/27/2021 02/27/2021 021 6:10 [...] as of this encounter Care Teams Paper Tester Relationship Specialty Start Date End Date Len Adhikari MD PCP - General Family Practice 11/08/16 05/09/22 [place] [address] [place] [address] PCP - General Family Medicine 05/18/22 Jovany Gonzalez MD [facility] [address] [facility] [address] [place], [place] [address] Orthopedics 02/15/17 Staci Woodward NP [facility] [address] [place] [address] Nurse Practitioner Nurse Practitioner Psych/Mental Health 05/10/17 [facility]) 02/16/18 04/12/19 [place] [address] [place] [address] Assigned PCP 11/14/16 01/22/22 Laurita Yang, RN Lead Real Time Operator 01/08/[address] [facility] [address] [place] [address] Loan Servicing Officer Dietitian, Registered 07/25/19 [place] [address] [facility] [address] [place] [address] Assigned Musculoskeletal Provider 05/02/20 09/13/20 Katiana Read MD [address] [place] [address] Assigned Endocrinology Provider 05/02/20 08/01/21 Jovita Daly MD [address] [place] [address] Assigned Surgical Provider 05/02/20 10/04/20 Alexander López MD [address] [place], [place] [address] Assigned Sleep Provider 05/02/20 11/15/20 Jese Doyle MD [address] [facility] [place], [place] [address] Assigned Pulmonology Provider 05/02/20 04/11/21 Roshni Nascimento, RN Personal Advocate & Liaison (PAL) Family Medicine 08/18/20 Johana Groves [facility] [address] [place], [place] [id number] Pharmacist Pharmacist 08/28/20 11/26/20 Kiet Swain MD [address] [place] [address] [id number] Referring Physician Psychiatry 09/19/20 Winsome Pike APRN MACHINE IRONER [address] [place] [address] [id number] Nurse Practitioner Psychiatry 09/19/[address] [facility] [address] [place] [address] [phone] Mathematics Improvement Teacher Mathematics Improvement Teacher - Clinical 09/19/20 [facility] [address] [place] [address] Pharmacist Pharmacist 11/12/20 Winsome Pike APRN MACHINE IRONER [address] [place] [address] Assigned Behavioral Health Provider 01/04/21 07/02/22 Marisel Armando MD [address] [place] [address] Gastroenterology 02/05/21 Marisel Armando MD [address] [place] [address] Assigned Gastroenterology Provider 03/08/21 12/24/22 Inderjit Ugalde MD [address] [place] [address] Assigned Surgical Provider 02/15/21 08/20/22 Wesley Barrett MD [address] [facility] 96 [place] [address] Assigned Neuroscience Provider 05/10/21 Charles Jaramillo PA-C [address] [facility] [address] [place] [address] Assigned Musculoskeletal Provider 04/26/21 10/15/22 Miranda Queen [facility] [address] [place] [address] Assigned MTM Pharmacist 12/05/21 03/26/22 [place] [address] [place] [address] Assigned PCP 01/23/22 05/14/22 Miranda Queen [facility] [address] [place] [address] Assigned MTM Pharmacist 04/07/22 05/14/22 [place] [address] [place] [address] Assigned PCP 05/15/22 Katiana Read MD [address] [address] [place] [address] Assigned Endocrinology Provider 06/19/22 [place] [address] [place] [address] Assigned Behavioral Health Provider 07/03/22 12/31/22 Deena Garza, FIRST AID INSTRUCTOR MACHINE IRONER [address] [place] [address] Assigned Pain Medication Provider 07/19/22 10/29/22 [place] [address] [address] [place] [address] Nurse Practitioner Nurse Practitioner 10/18/22 Elham Stack, [facility] [address] [place], [place] [address] Pharmacist Pharmacist 10/19/22 Emerita Potter, [facility] Clinic Real Time Operator Mathematics Improvement Teacher - Clinical 10/29/22 11/02/22 [place] [address] [address] [place] [address] Assigned Pain Medication Provider 10/30/22 12/03/22 Michelle Guzman DPM, Podiatry/Foot and Ankle Surgery [address] [place] [address] Assigned Musculoskeletal Provider 10/16/22 04/08/23 [place] [address] [place] [address] Assigned Pain Medication Provider 12/04/22 04/01/23 [place] [address] [address] [place] [address] Nurse Practitioner Nurse Practitioner 01/17/23 01/17/23 Aubrey Jones MD [address] [place] [address] Cardiovascular Disease 03/28/23 Blanquita Morales Loan Servicing Officer Diabetes Education 04/25/23 Aubrey Jones MD [address] [place] [address] Assigned Heart and Vascular Provider 05/07/23 documented as of this encounter
--- OUTSIDE RECORDS SUMMARY | 2023-08-03 10:20 | XMS_ITS | Encounter Summary ---
Author Name Unknown Organization [facility] Address [address] [place] [address]. [place] [address] Care Team Providers Care Ditch Digger Name Role Phone Len Adhikari MD Primary Care Provider Jovany Gonzalez MD [facility]available [facility] Unavailable [phone] [facility] Unavailable Len Adhikari MD Unavailable [phone] Laurita Yang RN Unavailable Lauriat Yang RN Unavailable Reanna Smith RD Unavailable Jamshid Granados MD Unavailable [phone] Katiana Read MD Unavailable Jovita Daly MD Unavailable [phone] Alexander López MD lab Jese Doyle MD Unavailable [phone] Roshni Nascimento RN Unavailable Unavailable Johana Groves [facility] Unavailable [phone] Kiet Swain MD Unavailable [phone] Winsome Pike APRN BEAD BUILDER Unavailable Tori Hines CERAMIC PAINTER Unavailable Miranda Queen [facility] Unavailable Unavailable Winsome Pike APRN BEAD BUILDER Unavailable [phone] Marisel Armando MD Unavailable Marisel Armando MD Unavailable Inderjit Ugalde MD Unavailable [phone] Wesley Barrett MD Unavailable [phone] Charles Jaramillo PA-C Unavailable [phone] Miranda Queen [facility] Unavailable Unavailable Leeann Rinaldi MD Unavailable Miranda Queen [facility] Unavailable Unavailable Dyan Fuentes MD Primary Care Provider [phone] Dyan Fuentes MD Unavailable [phone] Katiana Read MD Unavailable [phone] Meme Singleton PhD Unavailable +[phone] Deena Garza APRN BEAD BUILDER Unavailable [phone] Mary Del Cid NP Unavailable [phone] Elham Stack [facility] Unavailable [phone] Emerita Potter CERAMIC PAINTER Unavailable [phone] Mary Del Cid NP Unavailable [phone] Michelle Guzman DPM, Podiatry /Foot and Ankle Surgery Unavailable Dyan Fuentes MD Unavailable [phone] Mary Del Cid NP Unavailable [phone] Aubrey Jones MD Unavailable [phone] Blanquita Morales Unavailable Unavailable Aubrey Jones MD Unavailable [phone] Encounter Details Date Type Department Care Team (Late st Contact Info) Description 12/12/2018 MyC Medical Advice [facility] [id number] [place] [address] Criselda Ma, VIDHI BEAD BUILDER Social History Tobacco Use Types Packs/Day Years Used Date Smoking Tobacco: Every Day Cigarettes 0.5 40 Smokeless Tobacco: Never Comments:0-4 cigarettes a da y Alcohol Use Standard Drinks/Week Comments Yes 0 (1 standard drink = 0.6 oz pur e alcohol) rarely, < 1 drink a week PHQ-2 Answer Date Recorded PHQ-2 Score 4 07/18/2018 Sex and Gender Information Value Date Recorded Sex Assigned at Female 01/24/2020 11:14 AM CDT Gender Identity Female 11/15/2020 9:02 PM CDT Sexual Orientation Straight 11/06/2020 8: 58 AM CDT documented as of this encounter Plan of Treatment Upcoming Encounters Date Type Department Care Team (Late st Contact Info) Description 08/18/2023 3:00 PM CERTIFIED NOVELL ADMINISTRATOR Office Visit [facility] [address] [place] [address] Katiana Read MD [address] [place] [address] 200 [place] [address] documented as of this encounter Visit Diagnoses Not on filedocumented in this encounter Additional Health Concerns Infection Onset Date Last Indicated Resolved Time Rule Out COVID-19 08/19/2020 08/19/2020 08/19/2020 4:40 PM CERTIFIED NOVELL ADMINISTRATOR Rule Out C-difficile 02/27/2021 02/27/2021 021 6:10 PM CDT Rule Out C-difficile 10/14/2022 10/15/2022 023 12:33 AM CDT Rule Out C-difficile 10/15/2022 10/15/2022 023 5:39 AM CDT C-difficile 10/15/2022 10/27/2022 11/26/2022 11:4 0 PM CDT Rule Out C-difficile 10/26/2022 10/27/202210/28/2 023 2:14 AM CDT Rule Out C-difficile 12/05/2022 12/05/2022 023 9:44 AM CDT Assessment Noted Time PHQ-9 Depression Total Score: 15 018 8:55 AM CDT documented as of this encounter Care Teams Ditch Digger Relationship Specialty Start Date End Date Len Adhikari MD PCP - General Family Practice 11/08/16 05/09/22 [place] [address] [place] [address] PCP - General Family Medicine 05/18/22 Jovany Gonzalez MD [facility] [address] [facility] [address] [place], [place] [address] Orthopedics 02/15/17 Staci Woodward [address] [facility] [place] [address] [place] [address] Nurse Practitioner Nurse Practitioner Psych/Mental Health 05/10/17 [facility] ([facility] ([place] 02/16/18 04/12/19 [place] [address] [facility] [address] Assigned PCP 11/14/16 01/22/22 Laurita Yang, RN Clinic Golf Shoe Spike Assembler 12/29/18 01/07/19 Laurita Yang, RN Lead Golf Shoe Spike Assembler 01/08/[address] [facility] [address] [place] [address] Barrel Charrer Helper Dietitian, Registered 07/25/19 [place] [address] [facility] [address] [place] [address] Assigned Musculoskeletal Provider 05/02/20 09/13/20 Katiana Read MD [address] [place], [place] [address] Assigned Endocrinology Provider 05/02/20 08/01/21 Jovita Daly MD [address] [place], [place] [address] Assigned Surgical Provider 05/02/20 10/04/20 Alexander López MD [address] [facility] 106 [place], [place] [address] Assigned Sleep Provider 05/02/20 11/15/20 Jese Doyle MD [address] [place], [place] [address] Assigned Pulmonology Provider 05/02/20 04/11/21 Roshni Nascimento, ZITA Personal Advocate & Liaison (PAL) Family Medicine 08/18/20 Johana Groves, [facility] [address] [place], [place] [id number] Pharmacist Pharmacist 08/28/20 11/26/20 Kiet Swain MD [address] [facility] [place] [address] Referring Physician Psychiatry 09/19/20 Winsome Pike APRN BEAD BUILDER [address] [address] Nurse Practitioner Psychiatry 09/19/20 Tori Hines, [facility] [address]50 [place] [address] Optical Engineer Optical Engineer - Clinical 09/19/20 Miranda Queen [facility] [address] [place] [address] Pharmacist Pharmacist 11/12/20 Winsome Pike APRN BEAD BUILDER [address] [place] [address] Assigned Behavioral Health Provider 01/04/21 07/02/22 Marisel Armando MD [address] [place] [address] 626335 Gastroenterology 02/05/21 Marisel Armando MD [address] [place] [address] Assigned Gastroenterology Provider 03/08/21 12/24/22 Inderjit Ugalde MD [address] [facility] 300 [place], [place] 37[address] Assigned Surgical Provider 02/15/21 08/20/22 Wesley Barrett MD [address] [facility] 96 [place] [address] Assigned Neuroscience Provider 05/10/21 Charles Jaramillo PA-C [address] [facility] 450 [place] [address] Assigned Musculoskeletal Provider 04/26/21 10/15/22 Miranda Queen [facility] [address] [place] [address] Assigned MTM Pharmacist 12/05/21 03/26/22 [place] [address] [place] [address] Assigned PCP 01/23/22 05/14/22 [facility] [address] [place] [address] Assigned MTM Pharmacist 04/07/22 05/14/22 [place] [address] [place] [address] Assigned PCP 05/15/22 Katiana Read MD [address] [place] [address] 200 [place] [address] Assigned Endocrinology Provider 06/19/22 [place] [address] [place] [address] Assigned Behavioral Health Provider 07/03/22 12/31/22 Deena Garza APRN BEAD BUILDER [address] [place] [address] Assigned Pain Medication Provider 07/19/22 10/29/22 Mary Del Cid, RAFAEL [address] [place] [address] Nurse Practitioner Nurse Practitioner 10/18/22 Elham Stack, [facility] [address] [place] [address] Pharmacist Pharmacist 10/19/22 Emerita Potter, [facility] Clinic Golf Shoe Spike Assembler Optical Engineer - Clinical 10/29/22 11/02/22 [place] [address] [address] [place] [address] Assigned Pain Medication Provider 10/30/22 12/03/22 Michelle Guzman, DPM, Podiatry/Foot and Ankle Surgery [address] [place] [address] Assigned Musculoskeletal Provider 10/16/22 04/08/23 [place] [address] [place] [address] Assigned Pain Medication Provider 12/04/22 04/01/23 [place] [address] [place] [address] Nurse Practitioner Nurse Practitioner 01/17/23 01/17/23 Aubrey Jones MD [address] [place] [address] Cardiovascular Disease 03/28/23 Blanquita Morales Barrel Charrer Helper Diabetes Education 04/25/23 Aubrey Jones MD [address] [place] [address] Assigned Heart and Vascular Provider 05/07/23 documented as of this encounter
--- OUTSIDE RECORDS SUMMARY | 2023-08-03 10:20 | XMS_ITS | Encounter Summary ---
Author Name Unknown Organization [facility] Address [address] [place] [address]. [place] [address] Care Team Providers Care Rn New Grad Name Role Phone Len Adhikari MD Primary Care Provider Jovany Gonzalez MD [facility] Un[facility] [phone] [facility] Unavailable Len Adhikari MD Unavailable Laurita Yang RN Unavailable Laurita Yang RN Unavailable Reanna Smith RD Unavailable Jamshid Granados MD Unavailable [phone] Katiana Read MD Unavailable Jovita Daly MD Unavailable Alexander López MD lab Jese Doyle MD Unavailable [phone] Roshni Nascimento RN Unavailable Unavailable Johana Groves [facility] Unavailable Kiet Swain MD Unavailable [phone] Winsome Pike APRN HOT MILL SUPERVISOR Unavailable Tori Hines 7TH GRADE TEACHER Unavailable Miranda Queen [facility] Unavailable Unavailable Winsome Pike APRN HOT MILL SUPERVISOR Unavailable [phone] Marisel Armando MD Unavailable Marisel Armando MD Unavailable Inderjit Ugalde MD Unavailable [phone] Wesley Barrett MD Unavailable [phone] Charles Jaramillo PA-C Unavailable +[phone] Miranda Queen [facility] Unavailable Unavailable Leeann Rinaldi MD Unavailable Miranda Queen [facility] Unavailable Unavailable Dyan Fuentes MD Primary Care Provider [phone] Dyan Fuentes MD Unavailable [phone] Katiana Read MD Unavailable +[phone] Meme Singleton PhD Unavailable +[phone] Deena Garza APRN HOT MILL SUPERVISOR Unavailable +[phone] Mary Del Cid NP Unavailable + [phone] Elham Stack [facility] Unavailable [phone] Emerita Potter 7TH GRADE TEACHER Unavailable [phone] Mary Del Cid NP Unavailable + [phone] Michelle Guzman DPM, Podiatry /Foot and Ankle Surgery Unavailable Dyan Fuentes MD Unavailable [phone] Mary Del Cid NP Unavailable + [phone] Aubrey Jones MD Unavailable [phone] Blanquita Morales Unavailable Unavailable Aubrey Jones MD Unavailable [phone] Encounter Details Date Type Department Care Team (Late st Contact Info) Description 11/01/2018 MyC Medical Advice [facility] [address] [place] [phone] Rachelle Benites CMA Social History Tobacco Use Types Packs/Day Years Used Date Smoking Tobacco: Every Day Cigarettes 40 Smokeless Tobacco: Never Comments:0-4 cigarettes a [...] st Contact Info) Description 08/18/2023 3:00 PM ASSISTED LIVING EXECUTIVE DIRECTOR Office Visit [facility] [address] [place] [address] Katiana Read MD [address] [place] [address] 200 [place] [address] documented as of this encounter Visit Diagnoses Not on filedocumented in this encounter Additional Health Concerns Infection Onset Date Last Indicated Resolved Time Rule Out COVID-19 08/19/2020 08/19/2020 08/19/2020 4:40 PM ASSISTED LIVING EXECUTIVE DIRECTOR Rule Out C-difficile 02/27/2021 02/27/2021 021 6:10 [...] as of this encounter Care Teams Rn New Grad Relationship Specialty Start Date End Date Len Adhikari MD PCP - General Family Practice 11/08/16 05/09/22 [place] [address] [place] [address] PCP - General Family Medicine 05/18/22 Jovany Gonzalez MD [facility] [address] [facility] [address] [place], [place] [address] Orthopedics 02/15/17 Staci Woodward NURSE TRANSITION [place] [address] [place], [place] [phone] Nurse Practitioner Nurse Practitioner Psych/Mental Health 05/10/17 [facility] ([place] 02/16/18 04/12/19 [place] [address] [facility] [place] [address] Assigned PCP 11/14/16 01/22/22 Laurita Yang, RN Clinic Operations Representative 12/29/18 01/07/19 Laurita Yang, RN Lead Operations Representative 01/08/[address] [facility] [address] [place] [address] Instrument And Control Service Person Dietitian, Registered 07/25/19 [place] [address] [facility] [address] [place], [place] [address] Assigned Musculoskeletal Provider 05/02/20 09/13/20 Katiana Read MD [address] [facility] 200 [place], [place] [address] Assigned Endocrinology Provider 05/02/20 08/01/21 Jovita Daly MD [address] [place], [place] [address] Assigned Surgical Provider 05/02/20 10/04/20 Alexander López MD [address] [place] [address] 106 [place], [place] [id number] Assigned Sleep Provider 05/02/20 11/15/20 Jese Doyle MD 909 [facility] [address] [place], [place] [address] Assigned Pulmonology Provider 05/02/20 04/11/21 Roshni Nascimento, RN Personal Advocate & Liaison (PAL) Family Medicine 08/18/20 Johana Groves, [facility] [address] [place] [address] Pharmacist Pharmacist 08/28/20 11/26/20 Kiet Swain MD [address] [facility]15 [place] [address] Referring Physician Psychiatry 09/19/20 Winsome Pike APRN HOT MILL SUPERVISOR [facility] [address] Nurse Practitioner Psychiatry 09/19/20 Tori Hines, [facility] [address]50 [place] [address] Grant Coordinator Grant Coordinator - Clinical 09/19/20 Miranda Queen [facility] [address] [place] [address] Pharmacist Pharmacist 11/12/20 Winsome Pike APRN HOT MILL SUPERVISOR [address] [place] [address] Assigned Behavioral Health Provider 01/04/21 07/02/22 Marisel Armando MD [address] [place] [address] Gastroenterology 02/05/21 Marisel Armando MD [address] [place] [address] Assigned Gastroenterology Provider 03/08/21 12/24/22 Inderjit Ugalde MD [address] [facility] 300 [place], [place] [address] Assigned Surgical Provider 02/15/21 08/20/22 Wesley Barrett MD 420 [facility] 96 [place] [address] Assigned Neuroscience Provider 05/10/21 Charles Jaramillo PA-C 6545 [facility] 450 [place] [address] Assigned Musculoskeletal Provider 04/26/21 10/15/22 Miranda Queen [facility] [address] [place] [address] Assigned MTM Pharmacist 12/05/21 03/26/22 [place] [address] [place] [address] Assigned PCP 01/23/22 05/14/22 Miranda Queen [facility] [address] [place] [address] Assigned MTM Pharmacist 04/07/22 05/14/22 [place] [address] [place] [address] Assigned PCP 05/15/22 Katiana Read MD [address] [place] [address] 200 [place] [address] Assigned Endocrinology Provider 06/19/22 [place] [address] [place] [address] Assigned Behavioral Health Provider 07/03/22 12/31/22 Deena Garza APRN HOT MILL SUPERVISOR [address] [place] [address]27 Assigned Pain Medication Provider 07/19/22 10/29/22 Mary Del Cid, RAFAEL [address] [place] [address] Nurse Practitioner Nurse Practitioner 10/18/22 Elham Stack, [facility] [address] [place], [place] [address] Pharmacist Pharmacist 10/19/22 Emerita Potter, [facility] Clinic Operations Representative Grant Coordinator - Clinical 10/29/22 11/02/22 [place] [address] [place] [address] Assigned Pain Medication Provider 10/30/22 12/03/22 Michelle Guzman, DPM, Podiatry/Foot and Ankle Surgery [address] [place] [address] Assigned Musculoskeletal Provider 10/16/22 04/08/23 [place] [address] [place] [address] Assigned Pain Medication Provider 12/04/22 04/01/23 [place] [address] [place] [address] Nurse Practitioner Nurse Practitioner 01/17/23 01/17/23 Aubrey Jones MD [address] [place] [address] Cardiovascular Disease 03/28/23 Blanquita Morales Instrument And Control Service Person Diabetes Education 04/25/23 Aubrey Jones MD [address] [place] [address] Assigned Heart and Vascular Provider 05/07/23 documented as of this encounter
--- OUTSIDE RECORDS SUMMARY | 2023-08-03 10:20 | XMS_ITS | Encounter Summary ---
Author Name Unknown Organization [facility] Address [address] [place] [address]. [place] [address] Care Team Providers Care Water Well Driller Name Role Phone Len Adhikari MD Primary Care Provider Jovany Gonzalez MD [facility]available [facility] Un[facility] Unavailable [phone] Len Adhikari MD Unavailable Len Adhikari MD Unavailable Laurita Yang RN Unavailable [phone] Laurita Yang RN Unavailable [phone] Unavailable Jamshid Granados MD Unavailable Katiana Read MD Unavailable [phone] Jovita Daly MD Unavailable [phone] Alexander López MD lable Jese Doyle MD Unavailable [phone] Roshni Nascimento RN Unavailable Unavailable Johana Groves [facility] Unavailable [phone] Kiet Swain MD Unavailable [phone] Winsome Pike ASSISTANT PROFESSOR OF ENGLISH CHIEF CREW SCHEDULER Unavailable [phone] Tori Hines CEMENT CRUSHER OPERATOR Unavailable Miranda Queen [facility] Unavailable Unavailable Winsome Pike VIDHI CHIEF CREW SCHEDULER Unavailable [phone] Marisel Armando MD Unavailable Marisel Armando MD Unavailable Inderjit Ugalde MD Unavailable [phone] Wesley Barrett MD Unavailable [phone] Charles Jaramillo PA-C Unavailable [phone] Miranda Queen [facility] Unavailable Unavailable Leeann Rinaldi MD Unavailable Miranda Queen [facility] Unavailable Unavailable Dyan Fuentes MD Primary Care Provider [phone] Dyan Fuentes MD Unavailable [phone] Katiana Read MD Unavailable [phone] Meme Singleton PhD Unavailable [phone] Deena Garza ASSISTANT PROFESSOR OF ENGLISH CHIEF CREW SCHEDULER Unavailable +[phone] Mary Del Cid NP Unavailable + [phone] Elham Stack [facility] Unavailable [phone] Emerita Potter CEMENT CRUSHER OPERATOR Unavailable [phone] Mary Del Cid NP Unavailable + [phone] Michelle Guzman DPM, Podiatry /Foot and Ankle Surgery Unavailable Dyan Fuentes MD Unavailable [phone] Mary Del Cid NP Unavailable + [phone] Aubrey Jones MD Unavailable [phone] Blanquita Morales Unavailable Unavailable Aubrey Jones MD Unavailable Reason for Visit * Reason Onset Date Comments MyChart Communication 03/30/2018 Encounter Details Date Type Department Care Team (Late st Contact Info) Description 03/30/2018 MyC Medical Advice [facility] [address] [place] [phone] [place] [address] [place] [address] MyChart Communication Social History Tobacco Use Types Packs/Day Years Used Date Smoking Tobacco: Every Day Cigarettes 40 Smokeless Tobacco: Never Comments:0-4 cigarettes a da y Alcohol Use Standard Drinks/Week Comments Yes 0 (1 standard drink = 0.6 oz pur e alcohol) rarely, < 1 drink a week Sex and Gender Information Value Date Recorded Sex Assigned at Female 01/24/2020 11:14 AM CDT Gender Identity Female 11/15/2020 9:02 PM CDT Sexual Orientation Straight 11/06/2020 8: 58 AM CDT documented as of this encounter Miscellaneous Notes * Telephone Encounter - Len Adhikari MD - 04/04/2018 10:48 AM CDT That pattern of pain does not seem like a radiculopathy issue that would be new but rather expectedpain flare from changing medication regimen. Whole spine MRI is not indicated very often so I don'tknow that is needed. We discussed cervical spine imaging at last visit and I would still move forward with that based on the hand numbness issue. * Telephone Encounter - Criselda Ma RN - 03/30/2018 10:51 AM CDT Please advise Criselda Ma RN, BSN documented in this encounter Plan of Treatment Upcoming Encounters Date Type Department Care Team (Late st Contact Info) Description 08/18/2023 3:00 PM NAVAL GUNFIRE SPOTTER Office Visit [facility] [address] [place] [address] Katiana Read MD [address] [place] [address] documented as of this encounter Visit Diagnoses Not on filedocumented in this encounter Additional Health Concerns Infection Onset Date Last Indicated Resolved Time Rule Out COVID-19 08/19/2020 08/19/2020 08/19/2020 4:40 PM NAVAL GUNFIRE SPOTTER Rule Out C-difficile 02/27/2021 02/27/2021 021 6:10 [...] as of this encounter Care Teams Water Well Driller Relationship Specialty Start Date End Date Len Adhikari MD PCP - General Family Practice 11/08/16 05/09/22 [place] [address] [place] [address] PCP - Assigned PCP 11/14/16 09/12/18 [place] [address] [place] [address] PCP - General Family Medicine 05/18/22 Jovany Gonzalez MD [facility] [address] [facility] [address] [place], [place] [address] Orthopedics 02/15/17 Staci Woodward, BRAZER RESISTANCE [place] [address] [place] [address] Nurse Practitioner Nurse Practitioner Psych/Mental Health 05/10/17 [facility] ([place]) 02/16/18 04/12/19 [place] [address] [place] [address] Assigned PCP 11/14/16 01/22/22 Laurita Yagn, RN Clinic Meat Manager 12/29/18 01/07/19 Laurita Yang, RN Lead Meat Manager 01/08/19 9 Reanna Smith, RD [address] [address] Hospital Educator Dietitian, Registered 07/25/19 [place] [address] [facility] 300 [place], [place] [address] Assigned Musculoskeletal Provider 05/02/20 09/13/20 Katiana Read MD [address] [place] [address] 200 [place], [place] [address] Assigned Endocrinology Provider 05/02/20 08/01/21 Jovita Daly MD [address] [place] [address] Assigned Surgical Provider 05/02/20 10/04/20 Alexander López MD [address] [place] [address] 106 [place], [place] [address] Assigned Sleep Provider 05/02/20 11/15/20 Jese Doyle MD 909 [place], [place] [address] Assigned Pulmonology Provider 05/02/20 04/11/21 Roshni Nascimento, RN Personal Advocate & Liaison (PAL) Family Medicine 08/18/20 Johana Groves, [facility] [address] [facility] [address] [place], [place] [id number] Pharmacist Pharmacist 08/28/20 11/26/20 Kiet Swain MD [address] [place], [place] [address] [place], [place] [address] Referring Physician Psychiatry 09/19/20 Winsome Pike, VIDHI CHIEF CREW SCHEDULER [address] [address] Nurse Practitioner Psychiatry 09/19/20 Tori Hines, [facility] 2450 [place] [address] House Cleaner House Cleaner - Clinical 09/19/20 Miranda Queen [facility] [address] [place] [address] Pharmacist Pharmacist 11/12/20 Winsome Pike APRN CNP [address] [address] Assigned Behavioral Health Provider 01/04/21 07/02/22 Marisel Armando MD [address] [place] [address] Gastroenterology 02/05/21 Marisel Armando MD [address] [place] [address] Assigned Gastroenterology Provider 03/08/21 12/24/22 Inderjit Ugalde MD [address] [facility] 300 [place] [address] Assigned Surgical Provider 02/15/21 08/20/22 Wesley Barrett MD [address] [place] [address] Assigned Neuroscience Provider 05/10/21 Charles Jaramillo PA-C [address] [facility] [address] [address] Assigned Musculoskeletal Provider 04/26/21 10/15/22 Miranda Queen [facility] [address] [place] [address] Assigned MTM Pharmacist 12/05/21 03/26/22 [place] [address] [place] [address] Assigned PCP 01/23/22 05/14/22 Miranda Queen [facility] [address] [place] [address] Assigned MTM Pharmacist 04/07/22 05/14/22 [place] [address] [place] [address] Assigned PCP 05/15/22 Katiana Read MD [address] [address] Assigned Endocrinology Provider 06/19/22 [place] [address] [place] [address] Assigned Behavioral Health Provider 07/03/22 12/31/22 Deena Garza APRN CHIEF CREW SCHEDULER [address] [place] [address] Assigned Pain Medication Provider 07/19/22 10/29/22 Mary Del Cid, BRAZER RESISTANCE [address] [place] [address] Nurse Practitioner Nurse Practitioner 10/18/22 Elham Stack, [facility] [address] [place] [address] Pharmacist Pharmacist 10/19/22 Emerita Potter, [facility] Clinic Meat Manager House Cleaner - Clinical 10/29/22 11/02/22 Mary Del Cid, RAFAEL [address] [place] [address] Assigned Pain Medication Provider 10/30/22 12/03/22 Michelle Guzman DPM, Podiatry/Foot and Ankle Surgery [address] [place] [address] Assigned Musculoskeletal Provider 10/16/22 04/08/23 [place] [address] [place] [address] Assigned Pain Medication Provider 12/04/22 04/01/23 [place] [address] [address] [place] [address] Nurse Practitioner Nurse Practitioner 01/17/23 01/17/23 Aubrey Jones MD [address] [place] [address] Cardiovascular Disease 03/28/23 Blanquita Morales Hospital Educator Diabetes Education 04/25/23 Aubrey Jones MD [address] [place] [address] Assigned Heart and Vascular Provider 05/07/23 documented as of this encounter
--- OUTSIDE RECORDS SUMMARY | 2023-08-03 10:20 | XMS_ITS | Encounter Summary ---
Author Name Unknown Organization [place] Address [address] [place] [address]. [place] [address] Care Team Providers Care Elevator Service Technician Name Role Phone Len Adhikari MD Primary Care Provider Jovany Gonzalez MD [facility]available [facility] Un[facility] [phone] [facility] Unavailable Len Adhikari MD Unavailable [phone] Laurita Yang RN Unavailable [phone] Laurita Yang RN Unavailable [phone] Unavailable Jamshid Granados MD Unavailable [phone] Katiana Read MD Unavailable Jovita Daly MD Unavailable Alexander López MD lab Jese Doyle MD Unavailable [phone] Roshni Nascimento RN Unavailable Unavailable Johana Groves [facility] Unavailable Kiet Swain MD Unavailable [phone] Winsome Pike APRN RESEARCH DEVELOPMENT DIRECTOR Unavailable Tori Hines CREWMAN ARMOURED PERSONNEL CARRIER M113 Unavailable Miranda Queen [facility] Unavailable Unavailable Winsome Pike APRN RESEARCH DEVELOPMENT DIRECTOR Unavailable [phone] Marisel Armando MD Unavailable Marisel Armando MD Unavailable Inderjit Ugalde MD Unavailable [phone] Wesley Barrett MD Unavailable [phone] Charles Jaramillo PA-C Unavailable [phone] Miranda Queen [facility] Unavailable Unavailable Leeann Rinaldi MD Unavailable Miranda Queen [facility] Unavailable Unavailable Dyan Fuentes MD Primary Care Provider [phone] Dyan Fuentes MD Unavailable [phone] Katiana Read MD Unavailable [phone] Meme Singleton PhD Unavailable +[phone] Deena Garza APRN RESEARCH DEVELOPMENT DIRECTOR Unavailable [phone] Mary Del Cid NP Unavailable + [phone] Elham Stack [facility] Unavailable [phone] Emerita Potter CREWMAN ARMOURED PERSONNEL CARRIER M113 Unavailable +[phone] Mary Del Cid NP Unavailable + [phone] Michelle Guzman DPM, Podiatry /Foot and Ankle Surgery Unavailable Dyan Fuentes MD Unavailable [phone] Mary Del Cid NP Unavailable + [phone] Aubrey Jones MD Unavailable [phone] Blanquita [place] Unavailable Unavailable Aubrey Jones MD Unavailable [phone] Encounter Details Date Type Department Care Team (Late st Contact Info) Description 09/27/2018 MyC Medical Advice [facility] [address] [place] [id number] Roshni Nascimento, RN Social History Tobacco [...] Encounters Date Type Department Care Team (Late Contact Info) Description 08/18/2023 3:00 PM PLUMBING HARDWARE ASSEMBLER Office Visit [facility] [address] [place] [address] Katiana Read MD [address] [place] [address] [address] [place] [address] documented as of this encounter Visit Diagnoses Not on filedocumented in this encounter Additional Health Concerns Infection Onset Date Last Indicated Resolved Time Rule Out COVID-19 08/19/2020 08/19/2020 08/19/2020 4:40 PM PLUMBING HARDWARE ASSEMBLER Rule Out C-difficile 02/27/2021 02/27/2021 021 6:10 [...] documented as of this encounter Care Teams Elevator Service Technician Relationship Specialty Start Date End Date Len Adhikari MD PCP - General Family Practice 11/08/16 05/09/22 [place] [address] [place] [address] PCP - General Family Medicine 05/18/22 Jovany Gonzalez MD [facility] [address] [facility] [address] [place], [place] [address] Orthopedics 02/15/17 Staci Woodward TAX EXPERT [facility] [address] [place], [place] [id number] Nurse Practitioner Nurse Practitioner Psych/Mental Health 05/10/[address] [facility] ([facility] ([place]) 02/16/18 04/12/19 [place] [address] [facility] [place] [address] Assigned PCP 11/14/16 01/22/22 Laurita Yang, RN Clinic Perforating Machine Operator 12/29/18 01/07/19 Laurita Yang RN Lead Perforating Machine Operator 01/08/[address] [facility] [address] [place] [address] Dry Cleaning Machine Operator Dietitian, Registered 07/25/19 [place] [address] [facility] [address] [place] [address] Assigned Musculoskeletal Provider 05/02/20 09/13/20 Katiana Read MD [address] [place], [place] [address] Assigned Endocrinology Provider 05/02/20 08/01/21 Jovita Daly MD [address] [place], [place] [address] Assigned Surgical Provider 05/02/20 10/04/20 Alexander López MD [address] [place], [place] [id number] Assigned Sleep Provider 05/02/20 11/15/20 Jese Doyle MD [address] [facility] [place], [place] [address] Assigned Pulmonology Provider 05/02/20 04/11/21 Roshni Nascimento, RN Personal Advocate & Liaison (PAL) Family Medicine 08/18/20 Johana Groves, [facility] [address] [place], [place] [id number] Pharmacist Pharmacist 08/28/20 11/26/20 Kiet Swain MD 2450 [facility] [address] [place] [address] Referring Physician Psychiatry 09/19/20 Winsome Pike APRN RESEARCH DEVELOPMENT DIRECTOR [address] [place] [address]094 Nurse Practitioner Psychiatry 09/19/20 Tori Hines, [facility] [address] [place], [place] [address] Kiln Furniture Caster Kiln Furniture Caster - Clinical 09/19/20 Miranda Queen [facility] [address] [place] [address] Pharmacist Pharmacist 11/12/20 Winsome Pike APRN RESEARCH DEVELOPMENT DIRECTOR [address] [place] [address] Assigned Behavioral Health Provider 01/04/21 07/02/22 Marisel Armando MD [address] [place] [address] Gastroenterology 02/05/21 Marisel Armando MD [address] [place] [address] Assigned Gastroenterology Provider 03/08/21 12/24/22 Inderjit Ugalde MD [address] [facility] [address] [place] [address] Assigned Surgical Provider 02/15/21 08/20/22 Wesley Barrett MD [address] [place] [address] 96 [place] [address] Assigned Neuroscience Provider 05/10/21 Charles Jaramillo PA-C [address]45 [facility] 450 [place] [address] Assigned Musculoskeletal Provider 04/26/21 10/15/22 Miranda Queen [facility] [address] [place] [address] Assigned MTM Pharmacist 12/05/21 03/26/22 [place] [address] [place] [address] Assigned PCP 01/23/22 05/14/22 Miranda Queen [facility] [address] [place] [address] Assigned MTM Pharmacist 04/07/22 05/14/22 [place] [address] [place] [address] Assigned PCP 05/15/22 Katiana Read MD [address] [place] [address] 200 [place] [address] Assigned Endocrinology Provider 06/19/22 Meme Singleton, PhD [address] [place] [address] Assigned Behavioral Health Provider 07/03/22 12/31/22 Deena Garza APRN RESEARCH DEVELOPMENT DIRECTOR [address] [place] [address] Assigned Pain Medication Provider 07/19/22 10/29/22 Mary Del Cid, TAX EXPERT [address] [place] [address] Nurse Practitioner Nurse Practitioner 10/18/22 Elham Stack, [facility] [address] [place] [address] Pharmacist Pharmacist 10/19/22 Emerita Potter, [facility] Clinic Perforating Machine Operator Kiln Furniture Caster - Clinical 10/29/22 11/02/22 [place] [address] [address] [place] [address] Assigned Pain Medication Provider 10/30/22 12/03/22 Michelle Guzman, DPM, Podiatry/Foot and Ankle Surgery [address] [place] [address] Assigned Musculoskeletal Provider 10/16/22 04/08/23 [place] [address] [place] [address] Assigned Pain Medication Provider 12/04/22 04/01/23 [place] [address] [address] [place] [address] Nurse Practitioner Nurse Practitioner 01/17/23 01/17/23 Aubrey Jones MD [address] [place] [address] Cardiovascular Disease 03/28/23 Blanquita [place] Dry Cleaning Machine Operator Diabetes Education 04/25/23 Aubrey Jones MD [address] [place] [address] Assigned Heart and Vascular Provider 05/07/23 documented as of this encounter
--- OUTSIDE RECORDS SUMMARY | 2023-08-03 10:20 | XMS_ITS | Encounter Summary ---
Author Name Unknown Organization [place] Address [address] [place] [address]. [place] [address] Care Team Providers Care Wireworker Supervisor Name Role Phone Len Adhikari MD Primary Care Provider Jovany Gonzalez MD [facility]available [facility] Unavailable Len Adhikari MD Unavailable Len Adhikari MD Unavailable Lauirta Yang RN Unavailable Laurita Yang RN Unavailable Reanna Smith RD Unavailable [phone] Jamshid Granados MD Unavailable Katiana Read MD Unavailable [phone] Jovita Daly MD Unavailable [phone] Alexander López MD lable Jese Doyle MD Unavailable [phone] Roshni Nascimento RN Unavailable Unavailable Johana Groves [facility] Unavailable Kiet Swain MD Unavailable Winsome Pike OUTSIDE DEALER SALES REPRESENTATIVE MANAGER FILTER Unavailable [phone] Tori Hines AFTER SCHOOL TEACHER Unavailable Miranda Queen [facility] Unavailable Unavailable Winsome Pike VIDHI MANAGER FILTER Unavailable [phone] Marisel Armando MD Unavailable Marisel Armando MD Unavailable Inderjit Ugalde MD Unavailable [phone] Wesley Barrett MD Unavailable [phone] Charles Jaramillo PA-C Unavailable [phone] Miranda Queen [facility] Unavailable Unavailable Leeann Rinaldi MD Unavailable Miranda Queen [facility] Unavailable Unavailable Dyan Fuentes MD Primary Care Provider [phone] Dyan Fuentes MD Unavailable [phone] Katiana Read MD Unavailable [phone] Meme Singleton PhD Unavailable [phone] Deena Garza OUTSIDE DEALER SALES REPRESENTATIVE MANAGER FILTER Unavailable [phone] Mary Del Cid NP Unavailable + [phone] Elham Stack [facility] Unavailable [phone] Emerita Potter AFTER SCHOOL TEACHER Unavailable [phone] Mary Del Cid NP Unavailable [phone] Michelle Guzman DPM, Podiatry /Foot and Ankle Surgery Unavailable Dyan Fuentes MD Unavailable [phone] Mary Del Cid NP Unavailable [phone] Aubrey Jones MD Unavailable [phone] Blanquita [place] Unavailable Unavailable Aubrey Jones MD Unavailable Reason for Visit * Reason Onset Date Comments MyChart Communication 04/07/2018 Encounter Details Date Type Department Care Team (Late st Contact Info) Description 04/07/2018 MyC Medical Advice [facility] [address] [place] [address] [place] [address] [place] [address] MyChart Communication Social History Tobacco [...] Telephone Encounter - Len Adhikari MD - 04/07/2018 4:40 PM CDT Recommend recheck urine. Can do lab visit or go to urgent care. * Telephone Encounter - Criselda Ma RN - 04/07/2018 2:17 PM CDT Please advise Criselda Ma RN, BSN documented in this encounter Plan of Treatment Upcoming Encounters Date Type Department Care Team (Late st Contact Info) Description 08/18/2023 3:00 PM MOLD TECHNICIAN Office Visit [facility] [address] [place] [address] Katiana Read MD [address] [address] [place] [address] documented as of this encounter Visit Diagnoses Not on filedocumented in this encounter Additional Health Concerns Infection Onset Date Last Indicated Resolved Time Rule Out COVID-19 08/19/2020 08/19/2020 08/19/2020 4:40 PM MOLD TECHNICIAN Rule Out C-difficile 02/27/2021 02/27/2021 021 [...] documented as of this encounter Care Teams Wireworker Supervisor Relationship Specialty Start Date End Date Len Adhikari MD PCP - General Family Practice 11/08/16 05/09/22 [place] [address] [place] [address] PCP - Assigned PCP 11/14/16 09/12/18 [place] [address] [place] [address] PCP - General Family Medicine 05/18/22 Jovany Gonzalez MD [facility] [address] [place] [address] Orthopedics 02/15/17 Staci Woodward CREATIVE LEAD [facility] [address] [place] [address] Nurse Practitioner Nurse Practitioner Psych/Mental Health 05/10/17 [facility] ([facility] ([place]) 02/16/18 04/12/19 [place] [address] [place] [address] Assigned PCP 11/14/16 01/22/22 Laurita Yang, RN Clinic Shape Brick Molder 12/29/18 01/07/19 Laurita Yang, RN Lead Shape Brick Molder 01/08/[address] [place] [address] [place] [address] Pharmaceutical Development Technician Dietitian, Registered 07/25/19 [place] [address] [facility] [address] [place] [address] Assigned Musculoskeletal Provider 05/02/20 09/13/20 Katiana Read MD [address] [place] [address] 200 [place], [place] [address] Assigned Endocrinology Provider 05/02/20 08/01/21 Jovita Daly MD [address] [place] [address] Assigned Surgical Provider 05/02/20 10/04/20 Alexander López MD [address] [place] [address] [address] [place] [address] Assigned Sleep Provider 05/02/20 11/15/20 Jese Doyle MD 909 [place], [place] [address] Assigned Pulmonology Provider 05/02/20 04/11/21 Roshni Nascimento RN Personal Advocate & Liaison (PAL) Family Medicine 08/18/20 Johana Groves, [facility] [address] [facility] [address] [place], [place] [id number] Pharmacist Pharmacist 08/28/20 11/26/20 Kiet Swain MD [address] [place] [id number] Referring Physician Psychiatry 09/19/20 Winsome Pike APRN MANAGER FILTER [address] [place] [phone] Nurse Practitioner Psychiatry 09/19/20 Tori Hines, [facility] [place], [place] [phone] Admissions Gate Attendant Admissions Gate Attendant - Clinical 09/19/20 Miranda Queen, [facility] [address] [place] [address] Pharmacist Pharmacist 11/12/20 Winsome Pike APRN MANAGER FILTER [address] [place] [address] Assigned Behavioral Health Provider 01/04/21 07/02/22 Marisel Armando MD [address] [place] [address] Gastroenterology 02/05/21 Marisel Armando MD [address] [place] [address] Assigned Gastroenterology Provider 03/08/21 12/24/22 Inderjit Ugalde MD [address] [address] Assigned Surgical Provider 02/15/21 08/20/22 Wesley Barrett MD [address] [place] [address] Assigned Neuroscience Provider 05/10/21 Charles Jaramillo PA-C [address] [facility] [address] [address] Assigned Musculoskeletal Provider 04/26/21 10/15/22 Miranda Queen [facility] [address] [place] [address] Assigned MTM Pharmacist 12/05/21 03/26/22 [place] [address] [place] [address] Assigned PCP 01/23/22 05/14/22 Miranda Queen RPH [address] [place] [address] Assigned MTM Pharmacist 04/07/22 05/14/22 [place] [address] [place] [address] Assigned PCP 05/15/22 Katiana Read MD [address] [address] Assigned Endocrinology Provider 06/19/22 Meme Singleton, PhD [address] [place] [address] Assigned Behavioral Health Provider 07/03/22 12/31/22 Deena Garza APRN MANAGER FILTER [address] [place] [address] Assigned Pain Medication Provider 07/19/22 10/29/22 Mary Del Cid, [place] [address] [place] [address] Nurse Practitioner Nurse Practitioner 10/18/22 Elham Stack, [facility] [address] [place] [address] Pharmacist Pharmacist 10/19/22 Emerita Potter, [facility] Clinic Shape Brick Molder Admissions Gate Attendant - Clinical 10/29/22 11/02/22 [place] [address] [place] [address] Assigned Pain Medication Provider 10/30/22 12/03/22 Michelle Guzman, DPAlisha, Podiatry/Foot and Ankle Surgery [address] [place] [address] Assigned Musculoskeletal Provider 10/16/22 04/08/23 [place] [address] [place] [address] Assigned Pain Medication Provider 12/04/22 04/01/23 [place] [address] [address] [place] [address] Nurse Practitioner Nurse Practitioner 01/17/23 01/17/23 Aubrey Jones MD [address] [place] [address] Cardiovascular Disease 03/28/23 Blanquita [place] Pharmaceutical Development Technician Diabetes Education 04/25/23 Aubrey Jones MD [address] [place] [address] Assigned Heart and Vascular Provider 05/07/23 documented as of this encounter
--- OUTSIDE RECORDS SUMMARY | 2023-08-03 10:20 | XMS_ITS | Encounter Summary ---
Author Name Unknown Organization [facility] Address [address] [place] [address]. [place] [address] Care Team Providers Care Produce Associate Name Role Phone Len Adhikari MD Primary Care Provider Jovany Gonzalez MD Unavailable [facility] Unavailable [phone] [facility] Unavailable Len Adhikari MD Unavailable Laurita Yang RN Unavailable Laurita Yang RN Unavailable [phone] Unavailable [phone] Jamshid Granados MD Unavailable [phone] Katiana Read MD Unavailable Jovita Daly MD Unavailable Alexander López MD lab Jese Doyle MD Unavailable [phone] Roshni Nascimento RN Unavailable Unavailable Johana Groves [facility] Unavailable Kiet Swain MD Unavailable [phone] Winsome Pike APRN BALLPOINT PEN CARTRIDGE TESTER Unavailable Tori Hines KELP OR SEAGRASS GATHERER Unavailable Miranda Queen [facility] Unavailable Unavailable Winsome Pike APRN BALLPOINT PEN CARTRIDGE TESTER Unavailable [phone] Marisel Armando MD Unavailable Marisel Armando MD Unavailable Inderjit Ugalde MD Unavailable [phone] Wesley Barrett MD Unavailable +[phone] Charles Jaramillo PA-C Unavailable +[phone] Miranda Queen [facility] Unavailable Unavailable Leeann Rinaldi MD Unavailable Miranda Queen [facility] Unavailable Unavailable Dyan Fuentes MD Primary Care Provider [phone] Dyan Fuentes MD Unavailable [phone] Katiana Read MD Unavailable [phone] Meme Singleton PhD Unavailable +[phone] Deena Garza EDGING MACHINE OPERATOR BALLPOINT PEN CARTRIDGE TESTER Unavailable +[phone] Mary Del Cid NP Unavailable + [phone] Elham Stack [facility] Unavailable [phone] Emerita Potter KELP OR SEAGRASS GATHERER Unavailable [phone] Mary Del Cid NP Unavailable + [phone] Michelle Guzman DPM, Podiatry /Foot and Ankle Surgery Unavailable Dyan Fuentes MD Unavailable [phone] Mary Del Cid NP Unavailable + [phone] Aubrey Jones MD Unavailable [phone] Blanquita Morales Unavailable Unavailable Aubrey Jones MD Unavailable [phone] Reason for Visit * Reason Onset Date Comments Home Care/Hospice 12/25/2018 orders Encounter Details Date Type Department Care Team (Late st Contact Info) Description 12/25/2018 MyC Medical Advice [facility] [address] [place] [id number] [place] [address] [place], [place] [phone] Home Care/Hospice (orders) Social History Tobacco Use Types Packs/Day Years [...] st Contact Info) Description 08/18/2023 3:00 PM GRAILS WEB APPLICATION DEVELOPER Office Visit [facility] [address] [place] [address] Katiana Read MD [address] [address] [place] [address] documented as of this encounter Visit Diagnoses Not on filedocumented in this encounter Additional Health Concerns Infection Onset Date Last Indicated Resolved Time Rule Out COVID-19 08/19/2020 08/19/2020 08/19/2020 4:40 PM GRAILS WEB APPLICATION DEVELOPER Rule Out C-difficile 02/27/2021 02/27/2021 021 [...] documented as of this encounter Care Teams Produce Associate Relationship Specialty Start Date End Date Len Adhikari MD PCP - General Family Practice 11/08/16 05/09/22 [place] [address] [place] [address] PCP - General Family Medicine 05/18/22 Jovany Gonzalez MD [facility] [address] [facility] [address] [place] [address] Orthopedics 02/15/17 Staci Woodward, PANTOGRAPH II ENGRAVER [facility] [address] [place], [place] [id number] Nurse Practitioner Nurse Practitioner Psych/Mental Health 05/10/17 [facility] ([facility] ([place]) 02/16/18 04/12/19 [place] [address] [facility] [address] Assigned PCP 11/14/16 01/22/22 Laurita Yang, RN Clinic Safety Pin Assembling Machine Operator 12/29/18 01/07/19 Laurita Yang RN Lead Safety Pin Assembling Machine Operator 01/08/[address] [facility] [address] [place] [address] Plow Mechanic Dietitian, Registered 07/25/19 [place] [address] [facility] [address] [place], [place] [address] Assigned Musculoskeletal Provider 05/02/20 09/13/20 Katiana Read MD [address] [facility] [address] [place], [place] [address] Assigned Endocrinology Provider 05/02/20 08/01/21 Jovita Daly MD [address] [place], [place] [address] Assigned Surgical Provider 05/02/20 10/04/20 Alexander López MD [address] [facility] [address] [place], [place] [address] Assigned Sleep Provider 05/02/20 11/15/20 Jese Doyle MD 9[address] [place] [address] Assigned Pulmonology Provider 05/02/20 04/11/21 Roshni Nascimento RN Personal Advocate & Liaison (PAL) Family Medicine 08/18/20 Johana Groves [facility] [address] [place] [address] Pharmacist Pharmacist 08/28/20 11/26/20 Kiet Swain MD [address] [place] [address] [place] [address] Referring Physician Psychiatry 09/19/20 Winsome Pike APRN BALLPOINT PEN CARTRIDGE TESTER [address] [place] [address] Nurse Practitioner Psychiatry 09/19/20 Tori Hines, [facility] [address] [place] [address] Gas Appliance Mechanic Gas Appliance Mechanic - Clinical 09/19/20 Miranda Queen [facility] [address] [place] [address] Pharmacist Pharmacist 11/12/20 Winsome Pike APRN BALLPOINT PEN CARTRIDGE TESTER [address] [place] [address] Assigned Behavioral Health Provider 01/04/21 07/02/22 Marisel Armando MD [address] [place] [address] Gastroenterology 02/05/21 Marisel Armando MD [address] [place] [address] Assigned Gastroenterology Provider 03/08/21 12/24/22 Inderjit Ugalde MD [address] [facility] 300 [place] [address] Assigned Surgical Provider 02/15/21 08/20/22 Wesley Barrett MD 420 [facility] 96 [place] [address] Assigned Neuroscience Provider 05/10/21 Charles Jaramillo PA-C [address] [facility] [address] [place] [address] Assigned Musculoskeletal Provider 04/26/21 10/15/22 [facility] [address] [place] [address] Assigned MTM Pharmacist 12/05/21 03/26/22 [place] [address] [place] [address] Assigned PCP 01/23/22 05/14/22 [facility] [address] [place] [address] Assigned MTM Pharmacist 04/07/22 05/14/22 [place] [address] [place] [address] Assigned PCP 05/15/22 Katiana Read MD [address] [place] [address] 200 [place] [address] Assigned Endocrinology Provider 06/19/22 Meme Singleton, PhD [address] [place] [address] Assigned Behavioral Health Provider 07/03/22 12/31/22 Deena Garza, EDGING MACHINE OPERATOR BALLPOINT PEN CARTRIDGE TESTER [address] [address] [place] 433527 Assigned Pain Medication Provider 07/19/22 10/29/22 [place] [address] [address] [place] [address] Nurse Practitioner Nurse Practitioner 10/18/22 Elham Stack, [facility] [address] [place], [place] [address] Pharmacist Pharmacist 10/19/22 Emerita Potter, [facility] Clinic Safety Pin Assembling Machine Operator Gas Appliance Mechanic - Clinical 10/29/22 11/02/22 [place] [address] [place] [place] [address] Assigned Pain Medication Provider 10/30/22 12/03/22 Michelle Guzman, DPM, Podiatry/Foot and Ankle Surgery [address] [address] [place] [address] Assigned Musculoskeletal Provider 10/16/22 04/08/23 [place] [address] [place] [address] Assigned Pain Medication Provider 12/04/22 04/01/23 [place] [address] [place] [address] Nurse Practitioner Nurse Practitioner 01/17/23 01/17/23 Aubrey Jones MD [address] [place] [address] Cardiovascular Disease 03/28/23 Blanquita Morales Plow Mechanic Diabetes Education 04/25/23 Aubrey Jones MD [address] [place] [address] Assigned Heart and Vascular Provider 05/07/23 documented as of this encounter
--- OUTSIDE RECORDS SUMMARY | 2023-08-03 10:20 | XMS_ITS | Encounter Summary ---
Author Name Unknown Organization [facility] Address [address] [place] [address]. [place] [address] Care Team Providers Care Fence Erector Name Role Phone Len Adhikari MD Primary Care Provider Jovany Gonzalez MD Unavailable [facility] Unavailable [phone] [facility] Unavailable [phone] Len Adhikari MD Unavailable Len Adhikari MD Unavailable Laurita Yang RN Unavailable Laurita Yang RN Unavailable Reanna Smith RD Unavailable [phone] Jamshid Granados MD Unavailable Katiana Read MD Unavailable [phone] Jovita Daly MD Unavailable [phone] Alexander López MD lable Jese Doyle MD Unavailable [phone] Roshni Nascimento RN Unavailable Unavailable Johana Groves [facility] Unavailable Kiet Swain MD Unavailable [phone] Winsome Pike CENTRAL OFFICE EQUIPMENT ENGINEER APPEALS RN Unavailable [phone] Tori Hines AIRCRAFT WORKER Unavailable Miranda Queen [facility] Unavailable Unavailable Winsome Pike VIDHI APPEALS RN Unavailable [phone] Marisel Armando MD Unavailable Marisel Armando MD Unavailable Inderjit Ugalde MD Unavailable [phone] Wesley Brarett MD Unavailable [phone] Charles Jaramillo PA-C Unavailable +[phone] Miranda Queen [facility] Unavailable Unavailable Leeann Rinaldi MD Unavailable Miranda Queen [facility] Unavailable Unavailable Dyan Fuentes MD Primary Care Provider [phone] Dyan Fuentes MD Unavailable [phone] Katiana Read MD Unavailable [phone] Meme Singleton PhD Unavailable [phone] Deena Garza CENTRAL OFFICE EQUIPMENT ENGINEER APPEALS RN Unavailable [phone] Mary Del Cid NP Unavailable + [phone] Elham Stack [facility] Unavailable [phone] Emerita Potter AIRCRAFT WORKER Unavailable [phone] Mary Del Cid NP Unavailable + [phone] Michelle Guzman DPM, Podiatry /Foot and Ankle Surgery Unavailable Dyan Fuentes MD Unavailable [phone] Mary Del Cid NP Unavailable + [phone] Aubrey Jones MD Unavailable [phone] Blanquita Morales Unavailable Unavailable Aubrey Jones MD Unavailable Reason for Visit * Reason Onset Date Comments Pending Orders/need approval 08/14/2018 Jessica e care order request for recert Encounter Details Date Type Department Care Team (Late st Contact Info) Description 07/23/2018 Telephone [facility] [address] [place] [address] Reina Fitzgerald RN Pending Orders/need approval (Home care order request for recert) Social History Tobacco Use Types Packs/Day Years [...] Telephone Encounter - Len Adhikari MD - 08/14/2018 12:35 PM EMERGENCY DEPARTMENT COORDINATOR I approve of requested home care orders. Len Adhikari GENCY DEPARTMENT COORDINATOR * Telephone Encounter - Lynda Guidry - 08/14/2018 11:49 AM CST [facility] now requests orders and shares plan of care/discharge summaries for some patients through [employer]. Please REPLY TO THIS MESSAGE OR ROUTE BACK TO THE AUTHOR in order to give authorization for orders when needed. This is considered a verbal order, you will still receive a faxed copy of orders for signature. Thank you for your assistance in improving collaboration for ourpatients. ORDERS 1. Recertification SNV 1 time per week for 9 weeks and 3 PRN SN to perform assessment with focus on infusion therapy education and administration, medication management and reconciliation, hydration, weights, pain management, mental health status and need for referral or change in treatment plan, skin integrity, falls risk, and to notify physician for changes in condition. Instruct on disease process, signs/symptoms of complications to report to agency/physician/911, emergency/safety and falls prevention plan, medication effects/SE, new/high risk/changed medications, diet, and activity. Implement interventions to monitor and mitigate pain, prevent pressure ulcers andconfirm proper foot care. 3 prn visits to troubleshoot symptoms of infusion complications and changes in cardiac or GI, recertification assessments. GENCY DEPARTMENT COORDINATOR * Telephone Encounter - Reina Fitzgerald RN - 07/23/2018 8:48 AM EMERGENCY DEPARTMENT COORDINATOR Clinic Action Needed:YES check with MD and call patient in am 07/24 Reason for Call:I need a refill on 1. Chronic insomnia Continue current medication. - zolpidem (AMBIEN) 10 MG tablet; Take 1 tablet (10 mg) by mouth nightly as needed Dispense: 30 tablet; Refill: 0 I have been trying to get it refilled for over a week. Patient Recommendations/Teaching: I will route request to PCP to call you in am 07/24. Last OV was 06/23/18. RX last given on 05/17/18. Routed to:PCP Reina Fitzgerald RN [facility] GENCY DEPARTMENT COORDINATOR documented in this encounter Plan of Treatment Upcoming Encounters Date Type Department Care Team (Late st Contact Info) Description 08/18/2023 3:00 PM EMERGENCY DEPARTMENT COORDINATOR Office Visit [facility] [address] [place] [address] Katiana Read MD [address] [place] [address] documented as of this encounter Visit Diagnoses Not on filedocumented in this encounter Additional Health Concerns Infection Onset Date Last Indicated Resolved Time Rule Out COVID-19 08/19/2020 08/19/2020 08/19/2020 4:40 PM EMERGENCY DEPARTMENT COORDINATOR Rule Out C-difficile 02/27/2021 02/27/2021 021 6:10 [...] documented as of this encounter Care Teams Fence Erector Relationship Specialty Start Date End Date Len Adhikari MD PCP - General Family Practice 11/08/16 05/09/22 [place] [address] [facility] [place] [address] PCP - Assigned PCP 11/14/16 09/12/18 [place] [address] [place] [address] PCP - General Family Medicine 05/18/22 Jovany Gonzalez MD [facility] [address] [facility] [address] [place], [place] [address] Orthopedics 02/15/17 Staci Woodward CARVING MACHINE OPERATOR [place] [address] [place], [place] [phone] Nurse Practitioner Nurse Practitioner Psych/Mental Health 05/10/17 Care, [facility] ([facility] ([place]) 02/16/18 04/12/19 [place] [address] [place] [address] Assigned PCP 11/14/16 01/22/22 Laurita Ynag, RN Clinic Social Service Technician 12/29/18 01/07/19 Laurita Yang RN Lead Social Service Technician 01/08/[address] [facility] [address] [place], [place] [address] Asphalt Paver Operator Dietitian, Registered 07/25/19 [place] [address] [facility] [address] [place], [place] [address] Assigned Musculoskeletal Provider 05/02/20 09/13/20 Katiana Read MD [address] [facility] 200 [place], [place] [address] Assigned Endocrinology Provider 05/02/20 08/01/21 Jovita Daly MD [address] [place], [place] [address] Assigned Surgical Provider 05/02/20 10/04/20 Alexander López MD [address] 106 [place], [place] [address] Assigned Sleep Provider 05/02/20 11/15/20 Jese Doyle MD [address] [place] [address] Assigned Pulmonology Provider 05/02/20 04/11/21 Roshni Nascimento, RN Personal Advocate & Liaison (PAL) Family Medicine 08/18/20 Johana Groves, [facility] [address] [place], [place] [phone] Pharmacist Pharmacist 08/28/20 11/26/20 Kiet Swain MD [address] [place] [address] 218924 Referring Physician Psychiatry 09/19/20 Winsome Pike APRN APPEALS RN [address] [place] [address] 030764 Nurse Practitioner Psychiatry 09/19/20 Tori Hnies, [facility] [address] [place] [address] [phone] Core Winder Core Winder - Clinical 09/19/20 [facility] [id number] [place] [address] Pharmacist Pharmacist 11/12/20 Winsome Pike APRN APPEALS RN [address] [place] [address]304 Assigned Behavioral Health Provider 01/04/21 07/02/22 Marisel Armando MD [address] [place] [address] 423765 Gastroenterology 02/05/21 Marisel Armando MD [address] [place] [address] Assigned Gastroenterology Provider 03/08/21 12/24/22 Inderjit Ugalde MD [address] [place] [address] Assigned Surgical Provider 02/15/21 08/20/22 Wesley Barrett MD 420 [facility] 96 [place] [address] Assigned Neuroscience Provider 05/10/21 Charles Jaramillo PA-C 6545 [facility] 450 [place] [address] Assigned Musculoskeletal Provider 04/26/21 10/15/22 Miranda Queen [facility] [address] [place] [address] Assigned MTM Pharmacist 12/05/21 03/26/22 [place] [address] [place] [address] Assigned PCP 01/23/22 05/14/22 Miranda Queen [facility] [address] [place] [address] Assigned MTM Pharmacist 04/07/22 05/14/22 [place] [address] [place] [address] Assigned PCP 05/15/22 Katiana Read MD [address] [place] [address] Assigned Endocrinology Provider 06/19/22 [place] [address] [place] [place] [address] Assigned Behavioral Health Provider 07/03/22 12/31/22 [place] [address] [place] [address] Assigned Pain Medication Provider 07/19/22 10/29/22 Mary Del Cid, RAFAEL [address] [place] [place] [address] Nurse Practitioner Nurse Practitioner 10/18/22 Elham Stack, [facility] [address] [place] [address] Pharmacist Pharmacist 10/19/22 Emerita Potter, [facility] Clinic Social Service Technician Core Winder - Clinical 10/29/22 11/02/22 [place] [address] [place] [address] Assigned Pain Medication Provider 10/30/22 12/03/22 Michelle Guzman DPM, Podiatry/Foot and Ankle Surgery [address] [facility] [place] [address] Assigned Musculoskeletal Provider 10/16/22 04/08/23 [place] [address] [place] [address] Assigned Pain Medication Provider 12/04/22 04/01/23 [place] [address] [place] [address] Nurse Practitioner Nurse Practitioner 01/17/23 01/17/23 Aubrey Jones MD [address] [place] [address] Cardiovascular Disease 03/28/23 Blanquita Morales Asphalt Paver Operator Diabetes Education 04/25/23 Aubrey Jones MD [address] [place] [address] Assigned Heart and Vascular Provider 05/07/23 documented as of this encounter
--- OUTSIDE RECORDS SUMMARY | 2023-08-03 10:20 | XMS_ITS | Encounter Summary ---
Author Name Unknown Organization [facility] Address [address] [place] [address]. [place] [address] Care Team Providers Care Sales And Operations Trainee Name Role Phone Len Adhikari MD Primary Care Provider Jovany Gonzalez MD Unavailable [facility] Unavailable [phone] [facility] Unavailable Len Adhikari MD Unavailable Laurita Yang RN Unavailable Laurita Yang RN Unavailable [phone] Unavailable Jamshid Granados MD Unavailable [phone] Katiana Read MD Unavailable Jovita Daly MD Unavailable Alexander López MD lab Jese Doyle MD Unavailable [phone] Roshni Nascimento RN Unavailable Unavailable Johana Groves [facility] Unavailable [phone] Kiet Swain MD Unavailable [phone] Winsome Pike APRN [employer] Unavailable Tori Hines FINANCIAL DATA ANALYST Unavailable Miranda Queen [facility] Unavailable Unavailable Winsome Pike APRN [employer] Unavailable [phone] Marisel Armando MD Unavailable Marisel Armando MD Unavailable Inderjit Ugalde MD Unavailable [phone] Wesley Barrett MD Unavailable [phone] Charles Jaramillo PA-C Unavailable [phone] Miranda Queen [facility] Unavailable Unavailable Leeann Rinaldi MD Unavailable Miranda Queen [facility] Unavailable Unavailable Dyan Fuentes MD Primary Care Provider [phone] Dyan Fuentes MD Unavailable [phone] Katiana Read MD Unavailable [phone] Meme Singleton PhD Unavailable +[phone] Deena Garza APRN [employer] Unavailable [phone] Mary Del Cid NP Unavailable + [phone] Elham Stack [facility] Unavailable [phone] Emerita Potter FINANCIAL DATA ANALYST Unavailable +[phone] Mary Del Cid NP Unavailable + [phone] Michelle Guzman DPM, Podiatry /Foot and Ankle Surgery Unavailable Dyan Fuentes MD Unavailable [phone] Mary Del Cid NP Unavailable + [phone] Aubrey Jones MD Unavailable [phone] Blanquita Morales Unavailable Unavailable Aubrey Jones MD Unavailable [phone] Encounter Details Date Type Department Care Team (Late st Contact Info) Description 12/05/2018 MyC Medical Advice [facility] [id number] [place] [id number] Criselda Ma, VIDHI [employer]ING Social History Tobacco Use Types Packs/Day Years [...] (Late Contact Info) Description 08/18/2023 3:00 PM INSTRUMENT TECHNICIAN HELPER Office Visit [facility] [address] [place] [address] Katiana Read MD [address] [place] [address] 200 [place] [address] documented as of this encounter Visit Diagnoses Not on filedocumented in this encounter Additional Health Concerns Infection Onset Date Last Indicated Resolved Time Rule Out COVID-19 08/19/2020 08/19/2020 08/19/2020 4:40 PM INSTRUMENT TECHNICIAN HELPER Rule Out C-difficile 02/27/2021 02/27/2021 021 6:10 [...] documented as of this encounter Care Teams Sales And Operations Trainee Relationship Specialty Start Date End Date Len Adhikari MD PCP - General Family Practice 11/08/16 05/09/22 [place] [address] [place] [address] PCP - General Family Medicine 05/18/22 Jovany Gonzalez MD [facility] [address] [facility] 605 [place], [place] [address] Orthopedics 02/15/17 Staci Woodward [employer]ISTICS[employer]SHIPPER [place] [address] [place] [address] Nurse Practitioner Nurse Practitioner Psych/Mental Health 05/10/17 [facility] 02/16/18 04/12/19 [place] [address] [facility] [place] [address] Assigned PCP 11/14/16 01/22/22 Laurita Yang, RN Clinic Field Operations Coordinator 12/29/18 01/07/19 Laurita Yang, RN Lead Field Operations Coordinator 01/08/[address] [facility] [address] [place] [address] It Architect Dietitian, Registered 07/25/19 [place] [address] [facility] [address] [place] [address] Assigned Musculoskeletal Provider 05/02/20 09/13/20 Katiana Read MD [address] [place], [place] [address] Assigned Endocrinology Provider 05/02/20 08/01/21 Jovita Daly MD [address] [place], [place] [address] Assigned Surgical Provider 05/02/20 10/04/20 Alexander López MD 606 [facility] 106 [place], [place] [address] Assigned Sleep Provider 05/02/20 11/15/20 Jese Doyle MD 909 [place], [place] [address] Assigned Pulmonology Provider 05/02/20 04/11/21 Roshni Nascimento, ZITA Personal Advocate & Liaison (PAL) Family Medicine 08/18/20 Johana Groves, [facility] [address] [place], [place] [id number] Pharmacist Pharmacist 08/28/20 11/26/20 Kiet Swain MD 2450 [facility] [place] [address] Referring Physician Psychiatry 09/19/20 Winsome Pike APRN [employer] [address] [address] Nurse Practitioner Psychiatry 09/19/20 Tori Hines, [facility] 2450 [place] [address] Special Education Inclusion Teacher Special Education Inclusion Teacher - Clinical 09/19/20 Miranda Queen [facility] [address] [place] [address] Pharmacist Pharmacist 11/12/20 Winsome Pike APRN [employer] [address] [place] [address] Assigned Behavioral Health Provider 01/04/21 07/02/22 Marisel Armando MD [address] [place] [address] Gastroenterology 02/05/21 Marisel Armando MD [address] [place] [address] Assigned Gastroenterology Provider 03/08/21 12/24/22 Inderjit Ugalde MD [address] [facility] 300 [place], [place] [address] Assigned Surgical Provider 02/15/21 08/20/22 Wesley Barrett MD 420 [facility] 96 [place] [address] Assigned Neuroscience Provider 05/10/21 Charles Jaramillo PA-C 6545 [facility] 450 [place] [address] Assigned Musculoskeletal Provider 04/26/21 10/15/22 Miranda Queen [facility] [address] [place] [address] Assigned MTM Pharmacist 12/05/21 03/26/22 [place] [address] [place] [address] Assigned PCP 01/23/22 05/14/22 [facility] [address] [place] [address] Assigned MTM Pharmacist 04/07/22 05/14/22 [place] [address] [place] [address] Assigned PCP 05/15/22 Katiana Read MD [address] [place] [address] 200 [place] [address] Assigned Endocrinology Provider 06/19/22 [place] [address] [place] [address] Assigned Behavioral Health Provider 07/03/22 12/31/22 Deena Garza APRN [employer] [address] [place] [address] Assigned Pain Medication Provider 07/19/22 10/29/22 Mary Del Cid, RAFAEL [address] [place] 48[address] Nurse Practitioner Nurse Practitioner 10/18/22 Elham Stack, [facility] 30[address] [place] [address] Pharmacist Pharmacist 10/19/22 Emerita Potter, [facility] Clinic Field Operations Coordinator Special Education Inclusion Teacher - Clinical 10/29/22 11/02/22 [place] [address] [address] [place] [address] Assigned Pain Medication Provider 10/30/22 12/03/22 Michelle Guzman, DPM, Podiatry/Foot and Ankle Surgery [address] [place] [address] Assigned Musculoskeletal Provider 10/16/22 04/08/23 [place] [address] [place] [address] Assigned Pain Medication Provider 12/04/22 04/01/23 [place] [address] [place] [address] Nurse Practitioner Nurse Practitioner 01/17/23 01/17/23 Aubrey Jones MD [address] [place] [address] Cardiovascular Disease 03/28/23 Blanquita Morales It Architect Diabetes Education 04/25/23 Aubrey Jones MD [address] [place] [address] Assigned Heart and Vascular Provider 05/07/23 documented as of this encounter
--- OUTSIDE RECORDS SUMMARY | 2023-08-03 10:20 | XMS_ITS | Encounter Summary ---
Author Name Unknown Organization [facility] Address [address] [place] [address]. [place] [address] Care Team Providers Care Edging Machine Feeder Name Role Phone Len Adhikari MD Primary Care Provider Jovany Gonzalez MD Unavailable [facility]available [facility] Unavailable Len Adhikari MD Unavailable Laurita Yang RN Unavailable Laurita Yang RN Unavailable Reanna Smith RD Unavailable [phone] Jamshid Granados MD Unavailable [phone] Katiana Read MD Unavailable Jovita Daly MD Unavailable Alexander López MD lab Jese Doyle MD Unavailable [phone] Roshni Nascimento RN Unavailable Unavailable Johana Groves [facility] Unavailable [phone] Kiet Swain MD Unavailable [phone] Winsome Pike APRN CARTOGRAPHIC DRAFTER Unavailable Tori Hines REVIEW RN Unavailable Miranda Queen [facility] Unavailable Unavailable Winsome Pike APRN CARTOGRAPHIC DRAFTER Unavailable [phone] Marisel Armando MD Unavailable Marisel Armando MD Unavailable Inderjit Ugalde MD Unavailable [phone] Wesley Barrett MD Unavailable [phone] Charles Jaramillo PA-C Unavailable [phone] Miranda Queen [facility] Unavailable Unavailable Leeann Rinaldi MD Unavailable Miranda Queen [facility] Unavailable Unavailable Dyan Fuentes MD Primary Care Provider [phone] Dyan Fuentes MD Unavailable [phone] Katiana Read MD Unavailable [phone] Meme Singleton PhD Unavailable +[phone] Deena Garza SECURITIES CLERK CARTOGRAPHIC DRAFTER Unavailable [phone] Mary Del Cid NP Unavailable + [phone] Elham Stack [facility] Unavailable [phone] Emerita Potter REVIEW RN Unavailable [phone] Mary Del Cid NP Unavailable [phone] Michelle Guzman DPM, Podiatry /Foot and Ankle Surgery Unavailable Dyan Fuentes MD Unavailable [phone] Mary Del Cid NP Unavailable + [phone] Aubrey Jones MD Unavailable [phone] Blanquita Morales Unavailable Unavailable Aubrey Jones MD Unavailable [phone] Reason for Visit * Reason Onset Date Comments MyChart Communication 01/03/2019 Encounter Details Date Type Department Care Team (Late st Contact Info) Description 01/03/2019 [facility] [address] [place] [phone] [place] [address] [place], [place] [id number] MyChart Communication Social History Tobacco Use Types [...] Telephone Encounter - Len Adhikari MD - 01/03/2019 5:03 PM CDT As long as A1c levels are well below 7 I do not think any changes needed. We can check A1c and if this is higher that could be considered. * Telephone Encounter - Katiana Read MD - 01/03/2019 4:07 PM CDT Please route to . DM not discussed with endocrinology. DM well controlled. Lab Results Component Value Date A1C 6.2 10/24/2018 A1C 6.0 04/21/2018 A1C 6.1 02/11/2018 A1C 5.7 10/07/2017 A1C 5.4 03/15/2017 documented in this encounter Plan of Treatment Upcoming Encounters Date Type Department Care Team (Late st Contact Info) Description 08/18/2023 3:00 PM PATROL COMMANDER Office Visit [facility] [address] [place] [address] Katiana Read MD [address] [place] [address] documented as of this encounter Visit Diagnoses Not on filedocumented in this encounter Additional Health Concerns Infection Onset Date Last Indicated Resolved Time Rule Out COVID-19 08/19/2020 08/19/2020 08/19/2020 4:40 PM PATROL COMMANDER Rule Out C-difficile 02/27/2021 02/27/2021 021 6:10 [...] documented as of this encounter Care Teams Edging Machine Feeder Relationship Specialty Start Date End Date Len Adhikari MD PCP - General Family Practice 11/08/16 05/09/22 [place] [address] [place] [address] PCP - General Family Medicine 05/18/22 Jovany Gonzalez MD [facility] [address] [facility] 605 [place], [place] [address] Orthopedics 02/15/17 Staci Woodward FIRE AND EXPLOSION INVESTIGATOR [place] [address] [place] [address] Nurse Practitioner Nurse Practitioner Psych/Mental Health 05/10/17 [facility], [facility] 02/16/18 04/12/19 [place] [address] [facility] [place] [address] Assigned PCP 11/14/16 01/22/22 Laurita Yang, RN Clinic Sales Operations 12/29/18 01/07/19 Laurita Yang, RN Lead Sales Operations 01/08/[address] [place] [address] [place] [address] Fan Engine Engineer Dietitian, Registered 07/25/19 [place] [address] [facility] [address] [place] [address] Assigned Musculoskeletal Provider 05/02/20 09/13/20 Katiana Read MD [address] [place] [address] 200 [place] [address] Assigned Endocrinology Provider 05/02/20 08/01/21 Jovita Daly MD [facility] [place] [address] Assigned Surgical Provider 05/02/20 10/04/20 Alexander López MD [address] [facility] [address] [place], [place] [address] Assigned Sleep Provider 05/02/20 11/15/20 Jese Doyle MD [address] [place], [place] [address] Assigned Pulmonology Provider 05/02/20 04/11/21 Roshni Nascimento, RN Personal Advocate & Liaison (PAL) Family Medicine 08/18/20 Johana Groves, [facility] [address] [facility] [place] [address] Pharmacist Pharmacist 08/28/20 11/26/20 Kiet Swain MD [address] [place] [address] Referring Physician Psychiatry 09/19/20 Winsome Pike APRN CARTOGRAPHIC DRAFTER [address] [place] [address] Nurse Practitioner Psychiatry 09/19/20 Tori Hines, [facility] 2450 [place] [address] Materials Associate Materials Associate - Clinical 09/19/20 Miranda Queen, [facility] [address] [place] [address] Pharmacist Pharmacist 11/12/20 Winsome Pike APRN CARTOGRAPHIC DRAFTER [address] [place] [address] [place] [address] Assigned Behavioral Health Provider 01/04/21 07/02/22 Marisel Armando MD [address] [place] [address] Gastroenterology 02/05/21 Marisel Armando MD [address] [place] [address] Assigned Gastroenterology Provider 03/08/21 12/24/22 Inderjit Ugalde MD [address] [facility] 300 [place] [address] Assigned Surgical Provider 02/15/21 08/20/22 Wesley Barrett MD [address] [place] [address] 96 [place] [address] Assigned Neuroscience Provider 05/10/21 Charles Jaramillo PA-C [address] [address] Assigned Musculoskeletal Provider 04/26/21 10/15/22 Miranda Queen [facility] [address] [place] [address] Assigned MTM Pharmacist 12/05/21 03/26/22 [place] [address] [place] [address] Assigned PCP 01/23/22 05/14/22 Miranda Queen RPH [address] [place] [address] Assigned MTM Pharmacist 04/07/22 05/14/22 [place] [address] [address] Assigned PCP 05/15/22 Katiana Read MD [address] [place] [address] Assigned Endocrinology Provider 06/19/22 [place] [address] [place] [address] Assigned Behavioral Health Provider 07/03/22 12/31/22 Deena Garza APRN CARTOGRAPHIC DRAFTER [address] [place] [address] Assigned Pain Medication Provider 07/19/22 10/29/22 Mary Del Cid, RAFAEL [address] [place] [address] Nurse Practitioner Nurse Practitioner 10/18/22 Elham Stack, [facility] [address] [place] [address] Pharmacist Pharmacist 10/19/22 Emerita Potter, [facility] Clinic Sales Operations Materials Associate - Clinical 10/29/22 11/02/22 [place] [address] [place] [address] Assigned Pain Medication Provider 10/30/22 12/03/22 Michelle Guzman DPM, Podiatry/Foot and Ankle Surgery [address] [place] [address] Assigned Musculoskeletal Provider 10/16/22 04/08/23 [place] [address] [place] [address] Assigned Pain Medication Provider 12/04/22 04/01/23 [place] [address] [address] [place] [address] Nurse Practitioner Nurse Practitioner 01/17/23 01/17/23 Aubrey Jones MD [address] [place] [address] Cardiovascular Disease 03/28/23 Blanquita Morales Fan Engine Engineer Diabetes Education 04/25/23 Aubrey Jones MD [address] [place] [address] Assigned Heart and Vascular Provider 05/07/23 documented as of this encounter
--- OUTSIDE RECORDS SUMMARY | 2023-08-03 10:21 | XMS_ITS | Encounter Summary ---
Author Name Unknown Organization [facility] Address [address] [place] [address]. [place] [address] Care Team Providers Care Librarian Helper Name Role Phone Len Adhikari MD Primary Care Provider Jovany Gonzalez MD Unavailable [phone] Alem Rodriguez RN [facility] Un[facility] [phone] [facility] Unavailable Len Adhikari MD Unavailable [phone] Len Adhikari MD Unavailable Laurita Yang RN Unavailable [phone] Laurita Yang RN Unavailable Reanna Smith RD Unavailable [phone] Jamshid Granados MD Unavailable Katiana Read MD Unavailable [phone] Jovita Daly MD Unavailable Alexander López MD Unamarcelina lable Jese Doyle MD Unavailable [phone] Roshni Nascimento RN Unavailable Unavailable Johana Groves [facility] Unavailable Kiet Swain MD Unavailable [phone] Winsome Pkie APRN STRING STUDIES DIRECTOR Unavailable [phone] Tori Hines WINDOWS SERVER SUPPORT TECHNICIAN Unavailable Miranda Queen [facility] Unavailable Unavailable Winsome Pike APRN STRING STUDIES DIRECTOR Unavailable [phone] Marisel Armando MD Unavailable Marisel Armando MD Unavailable Inderjit Ugalde MD Unavailable [phone] Wesley Barrett MD Unavailable +[phone] Charles Jaramillo PA-C Unavailable [phone] [facility] Unavailable Unavailable Leeann Rinaldi MD Unavailable Miranda Queen [facility] Unavailable Unavailable Dyan Fuentes MD Primary Care Provider [phone] Dyan Fuentes MD Unavailable [phone] Katiana Read MD Unavailable [phone] Meme Singleton PhD Unavailable [phone] Deena Garza SURGICAL CONSULTANT STRING STUDIES DIRECTOR Unavailable +[phone] Mary Del Cid NP Unavailable + [phone] Elham Stack RPH Unavailable [phone] Emerita Potter WINDOWS SERVER SUPPORT TECHNICIAN Unavailable [phone] Mary Del Cid NP Unavailable + [phone] Michelle Guzman DPM, Podiatry /Foot and Ankle Surgery Unavailable Dyan Fuentes MD Unavailable [phone] Mary Del Cid NP Unavailable + [phone] Aubrey Jones MD Unavailable [phone] Andrew Blanquita Shantell Unavailable Unavailable Aubrey Jones MD Unavailable Encounter Details Date Type Department Care Team (Late st Contact Info) Description 11/28/2017 MyC Medical Advice [facility] [address] [place] [phone] [place] [address] [place] [address] Social History Tobacco Use Types [...] st Contact Info) Description 08/18/2023 3:00 PM BRIDGE ENGINEER Office Visit [facility] [address] [place] [address] Katiana Read MD [address] [address] [place] [address] documented as of this encounter Visit Diagnoses Not on filedocumented in this encounter Additional Health Concerns Infection Onset Date Last Indicated Resolved Time Rule Out COVID-19 08/19/2020 08/19/2020 08/19/2020 4:40 PM BRIDGE ENGINEER Rule Out C-difficile 02/27/2021 02/27/2021 021 6:10 PM CDT Rule Out C-difficile 10/14/2022 10/15/2022 023 12:33 AM CDT Rule Out C-difficile 10/15/2022 10/15/2022 023 5:39 AM CDT C-difficile 10/15/2022 10/27/2022 11/26/2022 11:4 0 PM CDT Rule Out C-difficile 10/26/2022 10/27/2022 023 2:14 AM CDT Rule Out C-difficile 12/05/2022 12/05/2022 023 9:44 AM CDT Assessment Noted Time PHQ-9 Depression Total Score: 6 01/30/20 17 7:27 AM CDT documented as of this encounter Care Teams Librarian Helper Relationship Specialty Start Date End Date Len Adhikari MD PCP - General Family Practice 11/08/16 05/09/22 [place] [address] [facility] [address] PCP - Assigned PCP 11/14/16 09/12/18 [place] [address] [place] [address] PCP - General Family Medicine 05/18/22 Jovany Gonzalez MD [facility] [address] [facility] [address] [place], [place] [address] Orthopedics 02/15/17 Alem Rodriguez, ZITA [facility] Specialist 05/10/17 02/08/18 Staci Woodward NP [place] [address] [place], [place] [address] Nurse Practitioner Nurse Practitioner Psych/Mental Health 05/10/17 [facility] ([facility]) 02/16/18 04/12/19 [place] [address] [facility] [place] [address] Assigned PCP 11/14/16 01/22/22 Laurita Yang, RN [facility] Specialist 12/29/18 01/07/19 Laurita Yang RN Lead Stars Specialist 01/08/[address] [facility] [address] [place] [address] Ferryboat Operator Helper Dietitian, Registered 07/25/19 [place] [address] [facility] [address] [place] [address] Assigned Musculoskeletal Provider 05/02/20 09/13/20 Katiana Read MD [address] [facility] [address] [place] [address] Assigned Endocrinology Provider 05/02/20 08/01/21 Jovita Daly MD [address] [place] [address] Assigned Surgical Provider 05/02/20 10/04/20 Alexander López MD [address] [address] [place] [address] Assigned Sleep Provider 05/02/20 11/15/20 Jese Doyle MD [address] [place] [address] Assigned Pulmonology Provider 05/02/20 04/11/21 Roshni Nascimento, RN Personal Advocate & Liaison (PAL) Family Medicine 08/18/[address] [facility] [address] [place], [place] [phone] Pharmacist Pharmacist 08/28/20 11/26/20 Kiet Swain MD [address] [place] [address] [phone] Referring Physician Psychiatry 09/19/20 Winsome Pike APRN STRING STUDIES DIRECTOR [address] [place] [address] 095134 Nurse Practitioner Psychiatry 09/19/20 Tori Hines [facility] [address] [place] [address] [phone] Procedures Analyst Procedures Analyst - Clinical 09/19/20 [facility] [address] [place] [address] Pharmacist Pharmacist 11/12/20 Winsome Pike APRN STRING STUDIES DIRECTOR [address] [place] [address] [phone] Assigned Behavioral Health Provider 01/04/21 07/02/22 Marisel Armando MD [address] [place] [address] 701385 Gastroenterology 02/05/21 Marisel Armando MD [address] [place] [address] Assigned Gastroenterology Provider 03/08/21 12/24/22 Inderjit Ugalde MD [address] [place] [address] Assigned Surgical Provider 02/15/21 08/20/22 Wesley Barrett MD 420 [facility] 96 [place] [address] Assigned Neuroscience Provider 05/10/21 Charles Jaramillo PA-C 6545 [facility] [address] [place] [address] Assigned Musculoskeletal Provider 04/26/21 10/15/[address] [facility] [address] [place] [address] Assigned MTM Pharmacist 12/05/21 03/26/22 [place] [address] [place] [address] Assigned PCP 01/23/22 05/14/[address] [facility] [address] [place] [address] Assigned MTM Pharmacist 04/07/22 05/14/22 [place] [address] [place] [address] Assigned PCP 05/15/22 Katiana Read MD [address] [place] [address] Assigned Endocrinology Provider 06/19/22 [place] [address] [place] [address] Assigned Behavioral Health Provider 07/03/22 12/31/22 Deena Garza APRN STRING STUDIES DIRECTOR [address] [place] [address] Assigned Pain Medication Provider 07/19/22 10/29/22 Mary Del Cid, RAFAEL [address] [place] [address] Nurse Practitioner Nurse Practitioner 10/18/22 Elham Stack, [facility] [address] [place], [place] [address] Pharmacist Pharmacist 10/19/22 Emerita Potter, [facility] Clinic Stars Specialist Procedures Analyst - Clinical 10/29/22 11/02/22 Mary Del Cid, RAFAEL [address] [place] [address] Assigned Pain Medication Provider 10/30/22 12/03/22 Michelle Guzman, DPM, Podiatry/Foot and Ankle Surgery [address] [place] [address] Assigned Musculoskeletal Provider 10/16/22 04/08/23 [place] [address] [place] [address] Assigned Pain Medication Provider 12/04/22 04/01/23 [place] [address] [place] [address] Nurse Practitioner Nurse Practitioner 01/17/23 01/17/23 Aubrey Jones MD [address] [place] [address] Cardiovascular Disease 03/28/23 Blanquita Morales Ferryboat Operator Helper Diabetes Education 04/25/23 Aubrey Jones MD [address] [place] [address] Assigned Heart and Vascular Provider 05/07/23 documented as of this encounter
--- OUTSIDE RECORDS SUMMARY | 2023-08-03 10:21 | XMS_ITS | Encounter Summary ---
Author Name Unknown Organization [place] Address [address] [place] [address]. [place] [address] Care Team Providers Care Access Liaison Name Role Phone Len Adhikari MD Primary Care Provider Jovany Gonzalez MD Unavailable Alem Rodriguez RN [facility]available [facility] Unavailable [phone] [facility] Unavailable Len Adhikari MD Unavailable Len Adhikari MD Unavailable Laurita Yang RN Unavailable Laurita Yang RN Unavailable Reanna Smith RD Unavailable [phone] Jamshid Granados MD Unavailable Katiana Read MD Unavailable [phone] Jovita Daly MD Unavailable Alexander López MD Unamarcelina lable Jese Doyle MD Unavailable [phone] Roshni Nascimento RN Unavailable Unavailable Johana Groves [facility] Unavailable [phone] Kiet Swain MD Unavailable [phone] Winsome Pike APRN [facility] [place] Unavailable [phone] Tori Hines TIE PULLER Unavailable Miranda Queen [facility] Unavailable Unavailable Winsome Pike APRN [place] Unavailable [phone] Marisel Armando MD Unavailable Marisel Armando MD Unavailable Inderjit Ugalde MD Unavailable [phone] Wesley Barrett MD Unavailable [phone] Charles Jaramillo PA-C Unavailable [phone] Miranda Queen [facility] Unavailable Unavailable Leeann Rinaldi MD Unavailable Miranda Queen [facility] Unavailable Unavailable Dyan Fuentes MD Primary Care Provider [phone] Dyan Fuentes MD Unavailable [phone] Katiana Read MD Unavailable [phone] Meme Singleton PhD Unavailable [phone] Deena Garza CHIEF OF ANESTHESIOLOGY [facility] [place] Unavailable [phone] Mary Del Cid NP Unavailable + [phone] Elham Stack RPH Unavailable [phone] Emerita Potter TIE PULLER Unavailable [phone] Mary Del Cid NP Unavailable + [phone] Michelle Guzman DPM, Podiatry /Foot and Ankle Surgery Unavailable Dyan Fuentes MD Unavailable [phone] Mary Del Cid NP Unavailable + [phone] Aubrey Jones MD Unavailable [phone] AndrewBlanquita Unavailable Unavailable Aubrey Jones MD Unavailable [phone] Reason for Visit * Reason Onset Date Comments MyChart Communication 12/23/2017 Encounter Details Date Type Department Care Team (Late st Contact Info) Description 12/23/2017 MyC Medical Advice [facility] [id number] [place] [phone] [place] [address] [address] [place], [place] [phone] MyChart Communication Social History Tobacco Use Types [...] st Contact Info) Description 08/18/2023 3:00 PM NEWSPAPER PHOTOJOURNALIST Office Visit [facility] [address] [place] [address] Katiana Read MD [address] [place] [address] [address] [place] [address] documented as of this encounter Visit Diagnoses Not on filedocumented in this encounter Additional Health Concerns Infection Onset Date Last Indicated Resolved Time Rule Out COVID-19 08/19/2020 08/19/2020 08/19/2020 4:40 PM NEWSPAPER PHOTOJOURNALIST Rule Out C-difficile 02/27/2021 02/27/2021 021 6:10 [...] documented as of this encounter Care Teams Access Liaison Relationship Specialty Start Date End Date Len Adhikari MD PCP - General Family Practice 11/08/16 05/09/22 [place] [address] [facility] [place] [address] PCP - Assigned PCP 11/14/16 09/12/18 [place] [address] [place] [address] PCP - General Family Medicine 05/18/22 Jovany Gonzalez MD [facility] 6600 [facility] 605 [place] [address] Orthopedics 02/15/17 Alem Rodriguez, ZITA Clinic 6Th Grade Teacher 05/10/17 02/08/18 Staci Woodward NP [address] [phone] Nurse Practitioner Nurse Practitioner Psych/Mental Health 05/10/17 Care, [facility]ENCY ([facility]) 02/16/18 04/12/19 [place] [address] [facility] [place] [address] Assigned PCP 11/14/16 01/22/22 Laurita Yang, RN Clinic 6Th Grade Teacher 12/29/18 01/07/19 Laurita Yang, RN Lead 6Th Grade Teacher 01/08/[address] [facility] [address] [place], [place] 85[address] Clinical Support Associate Dietitian, Registered 07/25/19 [place] [address] [facility] [address] [place], [place] [address] Assigned Musculoskeletal Provider 05/02/20 09/13/20 Katiana Read MD [address] [facility] 200 [place], [place] [address] Assigned Endocrinology Provider 05/02/20 08/01/21 Jovita Daly MD [address] [place], [place] 7[address] Assigned Surgical Provider 05/02/20 10/04/20 Alexander López MD 606 [address] 106 [place], [place] [address] Assigned Sleep Provider 05/02/20 11/15/20 Jese Doyle MD 9 [place], [place] [address] Assigned Pulmonology Provider 05/02/20 04/11/21 Roshni Nascimento, RN Personal Advocate & Liaison (PAL) Family Medicine 08/18/20 [facility] [address] [place] [address] [place], [place] [phone] Pharmacist Pharmacist 08/28/20 11/26/20 Kiet Swain MD [address] [place] [address] 670694 Referring Physician Psychiatry 09/19/20 Winsome Pike APRN [facility] [address] [place] [address] 938554 Nurse Practitioner Psychiatry 09/19/20 Tori Hines [facility] [place], [place] [address] Straightedge Machine Operator Helper Straightedge Machine Operator Helper - Clinical 09/19/20 [facility] [address] [place] [address] Pharmacist Pharmacist 11/12/20 Winsome Pike APRN [facility] [place] [address] [place] [address] [phone] Assigned Behavioral Health Provider 01/04/21 07/02/22 Marisel Armando MD [address] [place] [address] Gastroenterology 02/05/21 Marisel Armando MD [address] [place] [address] Assigned Gastroenterology Provider 03/08/21 12/24/22 Inderjit Ugalde MD [address] [place] [address] Assigned Surgical Provider 02/15/21 08/20/22 Wesley Barrett MD 420 [facility] 96 [place] [address] Assigned Neuroscience Provider 05/10/21 Charles Jaramillo PA-C [address] [place] [address] Assigned Musculoskeletal Provider 04/26/21 10/15/22 [facility] [address] [place] [address] Assigned MTM Pharmacist 12/05/21 03/26/22 [place] [address] [place] [address] Assigned PCP 01/23/22 05/14/22 Miranda Queen [facility] [address] [place] [address] Assigned MTM Pharmacist 04/07/22 05/14/22 [place] [address] [place] [address] Assigned PCP 05/15/22 Katiana Read MD [address] [place] [address] Assigned Endocrinology Provider 06/19/22 [place] [address] [place] [address] Assigned Behavioral Health Provider 07/03/22 12/31/22 Deena Garza APRN [place] [address] [place] [address] Assigned Pain Medication Provider 07/19/22 10/29/22 Mary Del Cid, RAFAEL [address] [place] [address] Nurse Practitioner Nurse Practitioner 10/18/22 Elham Stack, [facility] [address] [place], [place] 60[address] Pharmacist Pharmacist 10/19/22 Emerita Potter, [facility] Clinic 6Th Grade Teacher Straightedge Machine Operator Helper - Clinical 10/29/22 11/02/22 Mary Del Cid, RAFAEL [address] [place] [address] Assigned Pain Medication Provider 10/30/22 12/03/22 Michelle Guzman, DPM, Podiatry/Foot and Ankle Surgery [address] [place] [address] Assigned Musculoskeletal Provider 10/16/22 04/08/23 [place] [address] [place] [address] Assigned Pain Medication Provider 12/04/22 04/01/23 [place] [address] [place] [address] Nurse Practitioner Nurse Practitioner 01/17/23 01/17/23 Aubrey Jones MD [address] [place] [address] Cardiovascular Disease 03/28/23 Blanquita Morales Clinical Support Associate Diabetes Education 04/25/23 Aubrey Jones MD [address] [place] [address] Assigned Heart and Vascular Provider 05/07/23 documented as of this encounter
--- OUTSIDE RECORDS SUMMARY | 2023-08-03 10:21 | XMS_ITS | Encounter Summary ---
Author Name Unknown Organization [facility] Address [address] [place] [address]. [place] [address] Care Team Providers Care Community Specialist Name Role Phone Len Adhikari MD Primary Care Provider Jovany Gonzalez MD [facility]available [facility] Un[facility] [phone] [facility] Unavailable Len Adhikari MD Unavailable Len Adhikari MD Unavailable Laurita Yang RN Unavailable Laurita Yang RN Unavailable [phone] Unavailable Jamshid Granados MD Unavailable [phone] Katiana Read MD Unavailable [phone] Jovita Daly MD Unavailable [phone] Alexander López MD lable Jese Doyle MD Unavailable +[phone] Roshni Nascimento RN Unavailable Unavailable Johana Groves [facility] Unavailable [phone] Kiet Swain MD Unavailable [phone] Winsome Pike ELECTRO MECHANIC EXCHANGE OPERATOR Unavailable +[phone] Tori Hines ROOM SERVICE MANAGER Unavailable Miranda Queen [facility] Unavailable Unavailable Winsome Pike VIDHI EXCHANGE OPERATOR Unavailable +[phone] Marisel Armando MD Unavailable Marisel Armando MD Unavailable Inderjit Ugalde MD Unavailable [phone] Wesley Barrett MD Unavailable +[phone] Charles Jaramillo PA-C Unavailable +[phone] Miranda Queen [facility] Unavailable Unavailable Leeann Rinaldi MD Unavailable Miranda Queen [facility] Unavailable Unavailable Dyan Fuentes MD Primary Care Provider [phone] Dyan Fuentes MD Unavailable [phone] Katiana Read MD Unavailable [phone] Meme Singleton PhD Unavailable +[phone] Deena Garza ELECTRO MECHANIC EXCHANGE OPERATOR Unavailable +[phone] Mary Del Cid NP Unavailable + [phone] Elham Stack [facility] Unavailable [phone] Emerita Potter ROOM SERVICE MANAGER Unavailable +[phone] Mary Del Cid NP Unavailable + [phone] Michelle Guzman DPM, Podiatry /Foot and Ankle Surgery Unavailable Dyan Fuentes MD Unavailable [phone] Mary Del Cid NP Unavailable + [phone] Aubrey Jones MD Unavailable [phone] Blanquita Morales Unavailable Unavailable Aubrey Jones MD Unavailable Reason for Visit * Reason Onset Date Comments MyChart Communication 03/28/2018 Encounter Details Date Type Department Care Team (Late st Contact Info) Description 03/28/2018 MyC Medical Advice [facility] [address] [place] [address] [place] [address] [place] [address] MyChart Communication Social History Tobacco [...] Contact Info) Description 08/18/2023 3:00 PM ASSISTANT ACCOUNT MANAGER Office Visit [facility] [address] [place] [address] Katiana Read MD [address] [place] [address] [address] [place] [address] documented as of this encounter Visit Diagnoses Not on filedocumented in this encounter Additional Health Concerns Infection Onset Date Last Indicated Resolved Time Rule Out COVID-19 08/19/2020 08/19/2020 08/19/2020 4:40 PM ASSISTANT ACCOUNT MANAGER Rule Out C-difficile 02/27/2021 02/27/2021 021 6:10 [...] documented as of this encounter Care Teams Community Specialist Relationship Specialty Start Date End Date Len Adhikari MD PCP - General Family Practice 11/08/16 05/09/22 [place] [address] [facility] [place] [address] PCP - Assigned PCP 11/14/16 09/12/18 [place] [address] [place] [address] PCP - General Family Medicine 05/18/22 Jovany Gonzalez MD [facility] [address] [facility] [address] [place], [place] [address] Orthopedics 02/15/17 Staci Woodward [facility]ER [facility] [address] [place], [place] [id number] Nurse Practitioner Nurse Practitioner Psych/Mental Health 05/10/17 [facility] ([facility] ([place]) 02/16/18 04/12/19 [place] [address] [place] [address] Assigned PCP 11/14/16 01/22/22 Laurita Yang, RN Clinic Tar Heat Exchanger Cleaner 12/29/18 01/07/19 Laurita Yang RN Lead Tar Heat Exchanger Cleaner 01/08/[address] [facility] [address] [place] [address] Account Liaison Hospice Dietitian, Registered 07/25/19 [place] [address] [facility] [address] [place], [place] [address] Assigned Musculoskeletal Provider 05/02/20 09/13/20 Katiana Read MD [address] [facility] [address] [place], [place] [address] Assigned Endocrinology Provider 05/02/20 08/01/21 Jovita Daly MD [address] [place], [place] [address] Assigned Surgical Provider 05/02/20 10/04/20 Alexander López MD [address] [facility] [address] [place], [place] [address] Assigned Sleep Provider 05/02/20 11/15/20 Jese Doyle MD [address] [facility] [address] [place], [place] [address] Assigned Pulmonology Provider 05/02/20 04/11/21 Roshni Nascimento, RN Personal Advocate & Liaison (PAL) Family Medicine 08/18/20 Johana Groves [facility] [address] [facility] [place] [address] Pharmacist Pharmacist 08/28/20 11/26/20 Kiet Swain MD [address] [place] [address] Referring Physician Psychiatry 09/19/20 Winsome Pike APRN EXCHANGE OPERATOR [address] [place] [address] Nurse Practitioner Psychiatry 09/19/20 Tori Hines [facility] [address] [place] [address] Puppet Engineer Puppet Engineer - Clinical 09/19/20 [facility] [address] [place] [address] Pharmacist Pharmacist 11/12/20 Winsome Pike APRN EXCHANGE OPERATOR [address] [place] [address] Assigned Behavioral Health Provider 01/04/21 07/02/22 Marisel Armando MD [address] [place] [address] Gastroenterology 02/05/21 Marisel Armando MD [address] [place] [address] Assigned Gastroenterology Provider 03/08/21 12/24/22 Inderjit Ugalde MD [address] [place] [address] Assigned Surgical Provider 02/15/21 08/20/22 Wesley Barrett MD [address] [facility] 96 [place] [address] Assigned Neuroscience Provider 05/10/21 Charles Jaramillo PA-C [address] [facility] [address] [place] [address] Assigned Musculoskeletal Provider 04/26/21 10/15/22 [facility] [address] [place] [address] Assigned MTM Pharmacist 12/05/21 03/26/22 [place] [address] [place] [address] Assigned PCP 01/23/22 05/14/22 Miranda Queen [facility] [address] [place] [address] Assigned MTM Pharmacist 04/07/22 05/14/22 [place] [address] [place] [address] Assigned PCP 05/15/22 Katiana Read MD [address] 200 [place] [address] Assigned Endocrinology Provider 06/19/22 [place] [address] [place] [address] Assigned Behavioral Health Provider 07/03/22 12/31/22 Deena Garza APRN CNP [address] [place] [place] [address] Assigned Pain Medication Provider 07/19/22 10/29/22 [place] [address] [address] [place] [address] Nurse Practitioner Nurse Practitioner 10/18/22 Elham Stack, [facility] [address] [place], [place] [address] Pharmacist Pharmacist 10/19/22 Emerita Potter, [facility] Clinic Tar Heat Exchanger Cleaner Puppet Engineer - Clinical 10/29/22 11/02/22 [place] [address] [address] [place] [address] Assigned Pain Medication Provider 10/30/22 12/03/22 Michelle Guzman DPM, Podiatry/Foot and Ankle Surgery [address] [place] [address] Assigned Musculoskeletal Provider 10/16/22 04/08/23 [place] [address] [place] [address] Assigned Pain Medication Provider 12/04/22 04/01/23 [place] [address] [address] [place] [address] Nurse Practitioner Nurse Practitioner 01/17/23 01/17/23 Aubrey Jones MD [address] [place] [address] Cardiovascular Disease 03/28/23 Blanquita Morales Account Liaison Hospice Diabetes Education 04/25/23 Aubrey Jones MD [address] [place] [address] Assigned Heart and Vascular Provider 05/07/23 documented as of this encounter
--- OUTSIDE RECORDS SUMMARY | 2023-08-03 10:21 | XMS_ITS | Encounter Summary ---
Author Name Unknown Organization [facility] Address [address] [place] [address]. [place] [address] Care Team Providers Care Nut Sorter Name Role Phone Len Adhikari MD Primary Care Provider [phone] Jovany Gonzalez MD Unavailable Alem Rodriguez RN Unavailable [facility] Unavailable [phone] [facility] Unavailable Len Adhikari MD Unavailable Len Adhikari MD Unavailable [phone] Laurita Yang RN Unavailable [phone] Laurita Yang RN Unavailable Reanna Smith RD Unavailable [phone] Jamshid Granados MD Unavailable Katiana Read MD Unavailable [phone] Jovita Daly MD Unavailable [phone] Alexander López MD Unamarcelina lable Jese Doyle MD Unavailable Roshni Nascimento RN Unavailable Unavailable Johana Groves [facility] Unavailable Kiet Swain MD Unavailable [phone] Winsome Pike APRN THREAD CHECKER Unavailable +[phone] Tori Hines FILTER CLEANER Unavailable Miranda Queen [facility] Unavailable Unavailable Winsome Pike APRN THREAD CHECKER Unavailable [phone] Marisel Armando MD Unavailable Marisel Armando MD Unavailable Inderjit Ugalde MD Unavailable [phone] Wesley Barrett MD Unavailable [phone] Charles Jaramillo PA-C Unavailable +[phone] Miranda Queen [facility] Unavailable Unavailable Leeann Rinaldi MD Unavailable Miranda Queen [facility] Unavailable Unavailable Dyan Fuentes MD Primary Care Provider [phone] Dyan Fuentes MD Unavailable [phone] Katiana Read MD Unavailable [phone] Meme Singleton PhD Unavailable [phone] Deena Garza CONTRACTOR GENERAL ENGINEERING THREAD CHECKER Unavailable +[phone] Mary Del Cid NP Unavailable + [phone] Elham Stack RPH Unavailable [phone] Emerita Potter FILTER CLEANER Unavailable [phone] Mary Del Cid NP Unavailable + [phone] Michelle Guzman DPM, Podiatry /Foot and Ankle Surgery Unavailable Dyan Fuentes MD Unavailable [phone] Mary Del Cid NP Unavailable + [phone] Aubrey Jones MD Unavailable [phone] Andrew Blanquita J Unavailable Unavailable Aubrey Jones MD Unavailable [phone] Encounter Details Date Type Department Care Team (Late st Contact Info) Description 02/01/2018 MyC Medical Advice [facility] [address] [place] [address] Criselda Ma, CONTRACTOR GENERAL ENGINEERING THREAD CHECKER Social History Tobacco Use Types Packs/Day Years [...] st Contact Info) Description 08/18/2023 3:00 PM SHOWER ROOM ATTENDANT Office Visit [facility] [address] [place] [address] Katiana Read MD [address] [place] [address] documented as of this encounter Visit Diagnoses Not on filedocumented in this encounter Additional Health Concerns Infection Onset Date Last Indicated Resolved Time Rule Out COVID-19 08/19/2020 08/19/2020 08/19/2020 4:40 PM SHOWER ROOM ATTENDANT Rule Out C-difficile 02/27/2021 02/27/2021 021 6:10 [...] documented as of this encounter Care Teams Nut Sorter Relationship Specialty Start Date End Date Len Adhikari MD PCP - General Family Practice 11/08/16 05/09/22 [place] [address] [facility] [place] [address] PCP - Assigned PCP 11/14/16 09/12/18 [place] [address] [place] [address] PCP - General Family Medicine 05/18/22 Jovany Gonzalez MD [facility] [address] [facility] 605 [place] [address] Orthopedics 02/15/17 Alem Rodriguez, ZITA Clinic Consulting Solution Director 05/10/17 02/08/18 Staci Woodward NP CLINICS [facility] [address] [place], [place] [address] Nurse Practitioner Nurse Practitioner Psych/Mental Health 05/10/17 [facility] ([facility] ([place]) 02/16/18 04/12/19 [place] [address] [place] [address] Assigned PCP 11/14/16 01/22/22 Laurita Yang, RN Clinic Consulting Solution Director 12/29/18 01/07/19 Laurita Yang RN Lead Consulting Solution Director 01/08/[address] [facility] [address] [place], [place] [address] Sign Designer Dietitian, Registered 07/25/19 [place] [address] [facility] [address] [place], [place] [address] Assigned Musculoskeletal Provider 05/02/20 09/13/20 Katiana Read MD [address] [address] [place], [place] [address] Assigned Endocrinology Provider 05/02/20 08/01/21 Jovita Daly MD [address] [place], [place] [address] Assigned Surgical Provider 05/02/20 10/04/20 Alexander López MD [address] [facility] 106 [place] [address] Assigned Sleep Provider 05/02/20 11/15/20 Jese Doyle MD 909 [facility] [place], [place] [address] Assigned Pulmonology Provider 05/02/20 04/11/21 Roshni Nascimento, RN Personal Advocate & Liaison (PAL) Family Medicine 08/18/20 Johana Groves [facility] [address] [facility] [place] [address] Pharmacist Pharmacist 08/28/20 11/26/20 Kiet Swain MD [address] [place] [address] Referring Physician Psychiatry 09/19/20 Winsome Pike APRN THREAD CHECKER [address] [place] [address] Nurse Practitioner Psychiatry 09/19/20 Tori Hines [facility] [address] [place] [address] Application Spec Application Spec - Clinical 09/19/20 [facility] [id number] [place] [address] Pharmacist Pharmacist 11/12/20 Winsome Pike APRN THREAD CHECKER [address] [place] [address] Assigned Behavioral Health Provider 01/04/21 07/02/22 Marisel Armando MD [address] [place] [address] Gastroenterology 02/05/21 Marisel Armando MD [address] [place] [address] Assigned Gastroenterology Provider 03/08/21 12/24/22 Inderjit Ugalde MD [address] [place] [address] Assigned Surgical Provider 02/15/21 08/20/22 Wesley Barrett MD 420 [facility] 96 [place] [address] Assigned Neuroscience Provider 05/10/21 Charles Jaramillo PA-C [address] [facility] 450 [place] [address] Assigned Musculoskeletal Provider 04/26/21 10/15/22 [facility] [address] [place] [address] Assigned MTM Pharmacist 12/05/21 03/26/22 [place] [address] [place] [address] Assigned PCP 01/23/22 05/14/22 Miranda Queen [facility] [address] [place] [address] Assigned MTM Pharmacist 04/07/22 05/14/22 [place] [address] [place] [address] Assigned PCP 05/15/22 Katiana Read MD [address] 200 [place] [address] Assigned Endocrinology Provider 06/19/22 [place] [address] [place] [address] Assigned Behavioral Health Provider 07/03/22 12/31/22 Deena Garza APRN CNP [address] [address] [place] [address] Assigned Pain Medication Provider 07/19/22 10/29/22 [place] [address] [address] [place] [address] Nurse Practitioner Nurse Practitioner 10/18/22 Elham Stack, [facility] [address] [place] [address] Pharmacist Pharmacist 10/19/22 Emerita Potter, [facility] Clinic Consulting Solution Director Application Spec - Clinical 10/29/22 11/02/22 [place] [address] [address] [place] [address] Assigned Pain Medication Provider 10/30/22 12/03/22 Michelle Guzman DPM, Podiatry/Foot and Ankle Surgery [address] [place] [place] [address] Assigned Musculoskeletal Provider 10/16/22 04/08/23 [place] [address] [place] [address] Assigned Pain Medication Provider 12/04/22 04/01/23 [place] [address] [address] [place] [address] Nurse Practitioner Nurse Practitioner 01/17/23 01/17/23 Aubrey Jones MD [address] [place] [address] Cardiovascular Disease 03/28/23 Blanquita Morales Sign Designer Diabetes Education 04/25/23 Aubrey Jones MD [address] [place] [address] Assigned Heart and Vascular Provider 05/07/23 documented as of this encounter
--- OUTSIDE RECORDS SUMMARY | 2023-08-03 10:21 | XMS_ITS | Encounter Summary ---
Author Name Unknown Organization [facility] Address [address] [place] [address]. [place] [address] Care Team Providers Care Three Knife Trimmer Name Role Phone Len Adhikari MD Primary Care Provider Jovany Gonzalez MD Unavailable Alem Rodriguez RN [facility]available [facility] Unavailable [phone] [facility] Unavailable Len Adhikari MD Unavailable [phone] Len Adhikari MD Unavailable Laurita Yang RN Unavailable [phone] Laurita Yang RN Unavailable Reanna Smith RD Unavailable Jamshid Granados MD Unavailable [phone] Katiana Read MD Unavailable [phone] Jovita Daly MD Unavailable Alexander López MD Unamarcelina lable Jese Doyle MD Unavailable Roshni Nascimento RN Unavailable Unavailable [facility] Unavailable Kiet Swain MD Unavailable [phone] Winsome Pike APRN SUPERVISOR LACE TEARING Unavailable [phone] Tori Hines POLITICAL CARTOONIST Unavailable [facility] Unavailable Unavailable Winsome Pike APRN SUPERVISOR LACE TEARING Unavailable [phone] Marisel Armando MD Unavailable Marisel Armando MD Unavailable Inderjit Ugalde MD Unavailable Wesley Barrett MD Unavailable [phone] Charles Jaramillo PA-C Unavailable [phone] [facility] Unavailable Unavailable Leeann Rinaldi MD Unavailable [facility] Unavailable Unavailable Dyan Fuentes MD Primary Care Provider [phone] yDan Fuentes MD Unavailable [phone] Katiana Read MD Unavailable [phone] Meme Singleton PhD Unavailable [phone] Deena Garza EMPLOYMENT COACH SUPERVISOR LACE TEARING Unavailable [phone] Mary Del Cid NP Unavailable + [phone] Elham Stack RPH Unavailable [phone] Emerita Potter POLITICAL CARTOONIST Unavailable [phone] Mary Del Cid NP Unavailable + [phone] Michelle Guzman DPM, Podiatry /Foot and Ankle Surgery Unavailable Dyan Fuentes MD Unavailable [phone] Mary Del Cid NP Unavailable + [phone] Aubrey Jones MD Unavailable [phone] Andrew Blanquita Shantell Unavailable Unavailable Aubrey Jones MD Unavailable [phone] Encounter Details Date Type Department Care Team (Late st Contact Info) Description 12/09/2017 MyC Medical Advice [facility] [address] [place] [phone] [place] [address] [place] [address] Social History Tobacco Use Types [...] st Contact Info) Description 08/18/2023 3:00 PM INSTRUMENT REPAIR TECHNICIAN Office Visit [facility] [address] [place] [address] Katiana Read MD [address] [facility] [address] [place] [address] documented as of this encounter Visit Diagnoses Not on filedocumented in this encounter Additional Health Concerns Infection Onset Date Last Indicated Resolved Time Rule Out COVID-19 08/19/2020 08/19/2020 08/19/2020 4:40 PM INSTRUMENT REPAIR TECHNICIAN Rule Out C-difficile 02/27/2021 02/27/2021 021 [...] documented as of this encounter Care Teams Three Knife Trimmer Relationship Specialty Start Date End Date Len Adhikari MD PCP - General Family Practice 11/08/16 05/09/22 [place] [address] [facility] [place] [address] PCP - Assigned PCP 11/14/16 09/12/18 [place] [address] [place] [address] PCP - General Family Medicine 05/18/22 Jovany Gonzalez MD [facility] [address] [facility] [address] [place], [place] 84[address] Orthopedics 02/15/17 Alem Rodriguez, ZITA Clinic Senior Patrol Agent 05/10/17 02/08/18 Staci Woodward NP [place] [address] [place], [place] 8[address] Nurse Practitioner Nurse Practitioner Psych/Mental Health 05/10/17 [facility] ([facility] ([place]) 02/16/18 04/12/19 [place] [address] [facility] [place] [address] Assigned PCP 11/14/16 01/22/22 Laurita Yang, RN Clinic Senior Patrol Agent 12/29/18 01/07/19 Laurita Yang RN Lead Senior Patrol Agent 01/08/[address] [facility] [address] [place] [address] Traffic Supervisor Dietitian, Registered 07/25/19 [place] [address] [facility] [address] [place] [address] Assigned Musculoskeletal Provider 05/02/20 09/13/20 Katiana Read MD [address] [facility] [address] [place] [address] Assigned Endocrinology Provider 05/02/20 08/01/21 Jovita Daly MD [address] [place] [address] Assigned Surgical Provider 05/02/20 10/04/20 Alexander López MD [address] [address] [place] [address] Assigned Sleep Provider 05/02/20 11/15/20 Jese Doyle MD [address] [place] [address] Assigned Pulmonology Provider 05/02/20 04/11/21 Roshni Nascimento, RN Personal Advocate & Liaison (PAL) Family Medicine 08/18/20 [facility] [address] [facility] [address] [place], [place] [phone] Pharmacist Pharmacist 08/28/20 11/26/20 Kiet Swain MD [address] [place] [address] [phone] Referring Physician Psychiatry 09/19/20 Winsome Pike APRN SUPERVISOR LACE TEARING [address] [place] [address] [phone] Nurse Practitioner Psychiatry 09/19/20 Tori Hines [facility] [address] [place] [address] [phone] Nursing Informatics Analyst Nursing Informatics Analyst - Clinical 09/19/20 [facility] [address] [place] [address] Pharmacist Pharmacist 11/12/20 Winsome Pike APRN SUPERVISOR LACE TEARING [address] [place] [address] [phone] Assigned Behavioral Health Provider 01/04/21 07/02/22 Marisel Armando MD [address] [place] [address] 150325 Gastroenterology 02/05/21 Marisel Armando MD [address] [place] [address] Assigned Gastroenterology Provider 03/08/21 12/24/22 Inderjit Ugalde MD [address] [place] [address] Assigned Surgical Provider 02/15/21 08/20/22 Wesley Barrett MD [address] [facility] 96 [place] [address] Assigned Neuroscience Provider 05/10/21 Charles Jaramillo PA-C [address] [facility] 450 [place] [address] Assigned Musculoskeletal Provider 04/26/21 10/15/22 [facility] [address] [place] [address] Assigned MTM Pharmacist 12/05/21 03/26/22 [place] [address] [place] [address] Assigned PCP 01/23/22 05/14/22 [facility] [address] [place] [address] Assigned MTM Pharmacist 04/07/22 05/14/22 [place] [address] [place] [address] Assigned PCP 05/15/22 Katiana Read MD [address] [place] [address] Assigned Endocrinology Provider 06/19/22 [place] [address] [place] [address] Assigned Behavioral Health Provider 07/03/22 12/31/22 Deena Garza APRN SUPERVISOR LACE TEARING [address] [place] [address] Assigned Pain Medication Provider 07/19/22 10/29/22 Mary Del Cid, RAFAEL [address] [place] [address] Nurse Practitioner Nurse Practitioner 10/18/22 Elham Stack, [facility] [address] [place], [place] [phone] Pharmacist Pharmacist 10/19/22 Emerita Potter, [facility] Clinic Senior Patrol Agent Nursing Informatics Analyst - Clinical 10/29/22 11/02/22 Mary Del Cid, RAFAEL [address] [place] [address] Assigned Pain Medication Provider 10/30/22 12/03/22 Michelle Guzman, DPM, Podiatry/Foot and Ankle Surgery [address] [place] [address] Assigned Musculoskeletal Provider 10/16/22 04/08/23 [place] [address] [place] [address] Assigned Pain Medication Provider 12/04/22 04/01/23 [place] [address] [place] [address] Nurse Practitioner Nurse Practitioner 01/17/23 01/17/23 Aubrey Jones MD [address] [place] [address] Cardiovascular Disease 03/28/23 Blanquita Moralse Traffic Supervisor Diabetes Education 04/25/23 Aubrey Jones MD [address] [place] [address] Assigned Heart and Vascular Provider 05/07/23 documented as of this encounter
--- OUTSIDE RECORDS SUMMARY | 2023-08-03 10:21 | XMS_ITS | Encounter Summary ---
Author Name Unknown Organization [facility] Address [address] [place] [address]. [place] [address] Care Team Providers Care Graining Operator Name Role Phone Len Adhikari MD Primary Care Provider Jovany Gonzalez MD [facility]available [facility] Unavailable [phone] [facility] Unavailable Len Adhikari MD Unavailable [phone] Len Adhikari MD Unavailable Laurita Yang RN Unavailable Laurita Yang RN Unavailable Reanna Smith RD Unavailable Jamshid Granados MD Unavailable [phone] Katiana Read MD Unavailable [phone] Jovita Daly MD Unavailable [phone] Alexander López MD lable Jese Doyle MD Unavailable [phone] Roshni Nascimento RN Unavailable Unavailable Johana Groves [facility] Unavailable Kiet Swain MD Unavailable [phone] Winsome Pike ELEVATOR TENDER PATROL OFFICER Unavailable [phone] Tori Hines TEAM FACILITATOR Unavailable Miranda Queen [facility] Unavailable Unavailable Winsome Pike VIDHI PATROL OFFICER Unavailable [phone] Marisel Armando MD Unavailable Marisel Armando MD Unavailable Inderjit Ugalde MD Unavailable [phone] Wesley Barrett MD Unavailable [phone] Charles Jaramillo PA-C Unavailable [phone] Miranda Queen [facility] Unavailable Unavailable Leeann Rianldi MD Unavailable [facility] Queen [facility] Unavailable Unavailable Dyan Fuentes MD Primary Care Provider [phone] Dyan Fuentes MD Unavailable [phone] Katiana Read MD Unavailable [phone] Meme Singleton PhD Unavailable [phone] Deena Garza ELEVATOR TENDER PATROL OFFICER Unavailable [phone] Mary Del Cid NP Unavailable + [phone] Elham Stack [facility] Unavailable [phone] Emerita Potter TEAM FACILITATOR Unavailable [phone] Mary Del Cid NP Unavailable + [phone] Michelle Guzman DPM, Podiatry /Foot and Ankle Surgery Unavailable Dyan Fuentes MD Unavailable [phone] Mary Del Cid NP Unavailable + [phone] Aubrey Jones MD Unavailable [phone] Blanquita Morales Unavailable Unavailable Aubrey Jones MD Unavailable Reason for Visit * Reason Comments Home Care/Hospice Encounter Details Date Type Department Care Team (Late Contact Info) Description 02/18/2018 Documentation Only [facility] [address] [place] [phone] [place] [address] [place] [address] Home Care/Hospice Social History Tobacco Use Types [...] Telephone Encounter - Len Adhikari MD - 02/20/2018 10:27 AM CDT I approve of requested home care orders. Len Adhikari documented in this encounter Plan of Treatment Upcoming Encounters Date Type Department Care Team (Late Contact Info) Description 08/18/2023 3:00 PM GLAZE GRINDER Office Visit [facility] [address] [facility] [address] [place] [address] Katiana Read MD [address] [place] [address] documented as of this encounter Visit Diagnoses Not on filedocumented in this encounter Additional Health Concerns Infection Onset Date Last Indicated Resolved Time Rule Out COVID-19 08/19/2020 08/19/2020 08/19/2020 4:40 PM GLAZE GRINDER Rule Out C-difficile 02/27/2021 02/27/2021 021 6:10 [...] documented as of this encounter Care Teams Graining Operator Relationship Specialty Start Date End Date Len Adhikari MD PCP - General Family Practice 11/08/16 05/09/22 [place] [address] [facility] [place] [address] PCP - Assigned PCP 11/14/16 09/12/18 [place] [address] [place] [address] PCP - General Family Medicine 05/18/22 Jovany Gonzalez MD [facility] [address] [facility] [address] [place], [place] [phone] Orthopedics 02/15/17 Staci Woodward V[facility]ER DRIER [facility]ER [facility] [address] [place], [place] [phone] Nurse Practitioner Nurse Practitioner Psych/Mental Health 05/10/17 Care, [facility] ([facility]), ([place]) 02/16/18 04/12/19 [place] [address] [place] [address] Assigned PCP 11/14/16 01/22/22 Laurita Yang, RN Clinic Stock Fitter 12/29/18 01/07/19 Laurita Yang RN Lead Stock Fitter 01/08/[address] [facility] [address] [place], [place] [address] Oil Tank Car Cleaner Dietitian, Registered 07/25/19 [place] [address] [facility] [address] [place], [place] [phone] Assigned Musculoskeletal Provider 05/02/20 09/13/20 Katiana Read MD [address] [facility] 200 [place], [place] [address] Assigned Endocrinology Provider 05/02/20 08/01/21 Jovita Daly MD [address] [place], [place] 8813[address] Assigned Surgical Provider 05/02/20 10/04/20 Alexander López MD 606 [address] 106 [place], [place] [address] Assigned Sleep Provider 05/02/20 11/15/20 Jese Doyle MD [address] [place] [address] [phone] Assigned Pulmonology Provider 05/02/20 04/11/21 Roshni Nascimento, RN Personal Advocate & Liaison (PAL) Family Medicine 08/18/20 Johana Groves, [facility] [address] [place] [place], [place] [phone] Pharmacist Pharmacist 08/28/20 11/26/20 Kiet Swain MD [address] [place] [address] 593254 Referring Physician Psychiatry 09/19/20 Winsome Pike APRN PATROL OFFICER [address] [place] [address] [phone] Nurse Practitioner Psychiatry 09/19/20 Tori Hines, [facility] [address] [place] [address] [phone] Stage Technician Stage Technician - Clinical 09/19/20 [facility] [id number] [place] [address] Pharmacist Pharmacist 11/12/20 Winsome Pike APRN PATROL OFFICER [address] [place] [address] 933344 Assigned Behavioral Health Provider 01/04/21 07/02/22 Marisel Armando MD [address] [place] [address] 970255 Gastroenterology 02/05/21 Marisel Armando MD [address] [place] [address] Assigned Gastroenterology Provider 03/08/21 12/24/22 Inderjit Ugalde MD [address] [place] [address] Assigned Surgical Provider 02/15/21 08/20/22 Wesley Barrett MD 420 [facility] 96 [place] [address] Assigned Neuroscience Provider 05/10/21 Charles Jaramillo PA-C 6545 [facility] 450 [place] [address] Assigned Musculoskeletal Provider 04/26/21 10/15/22 Miranda Queen [facility] [address] [place] [address] Assigned MTM Pharmacist 12/05/21 03/26/22 [place] [address] [place] [address] Assigned PCP 01/23/22 05/14/22 Miranda Queen [facility] [address] [place] [address] Assigned MTM Pharmacist 04/07/22 05/14/22 [place] [address] [place] [address] Assigned PCP 05/15/22 Katiana Read MD [address] [place] [address] Assigned Endocrinology Provider 06/19/22 [place] [address] [place] [address] Assigned Behavioral Health Provider 07/03/22 12/31/22 Deena Garza APRN PATROL OFFICER [address] [place] [address] Assigned Pain Medication Provider 07/19/22 10/29/22 [place] [address] [place] [address] Nurse Practitioner Nurse Practitioner 10/18/22 Elham Stack, [facility] 30[address] [place] [address] Pharmacist Pharmacist 10/19/22 Emerita Potter, [facility] Clinic Stock Fitter Stage Technician - Clinical 10/29/22 11/02/22 Mary Del Cid, RAFAEL [address] [place] [address] Assigned Pain Medication Provider 10/30/22 12/03/22 Michelle Guzman DPM, Podiatry/Foot and Ankle Surgery [address] [facility] [place] [address] Assigned Musculoskeletal Provider 10/16/22 04/08/23 [place] [address] [address] [place] [address] Assigned Pain Medication Provider 12/04/22 04/01/23 [place] [address] [place] [address] Nurse Practitioner Nurse Practitioner 01/17/23 01/17/23 Aubrey Jones MD [address] [place] [address] Cardiovascular Disease 03/28/23 Blanquita Morales Oil Tank Car Cleaner Diabetes Education 04/25/23 Aubrey Jones MD [address] [place] [address] Assigned Heart and Vascular Provider 05/07/23 documented as of this encounter
--- OUTSIDE RECORDS SUMMARY | 2023-08-03 10:21 | XMS_ITS | Encounter Summary ---
Author Name Unknown Organization [facility] Address [address] [place] [address]. [place] [address] Care Team Providers Care Waste Paper Hammermill Operator Name Role Phone Len Adhikari MD Primary Care Provider [phone] Jovany Gonzalez MD Unavailable Alem Rodriguez RN Unavailable [facility] Unavailable [phone] [facility] Unavailable Len Adhikari MD Unavailable Len Adhikari MD Unavailable Laurita Yang RN Unavailable Laurita Yang RN Unavailable Reanna Smith RD Unavailable Jamshid Granados MD Unavailable [phone] Katiana Read MD Unavailable [phone] Jovita Daly MD Unavailable [phone] Alexander López MD Unamarcelina lable Jese Doyle MD Unavailable Roshni Nascimento RN Unavailable Unavailable Johana Groves [facility] Unavailable Kiet Swain MD Unavailable [phone] Winsome Pike APRN CHEMICAL MACHINE TENDER Unavailable [phone] Tori Hines HONEY PROCESSOR Unavailable Miranda Queen [facility] Unavailable Unavailable Winsome Pike APRN CHEMICAL MACHINE TENDER Unavailable [phone] Marisel Armando MD Unavailable Marisel Armando MD Unavailable Inderjit Ugalde MD Unavailable [phone] Wesley Barrett MD Unavailable [phone] Charles Jaramillo PA-C Unavailable [phone] Miranda Queen [facility] Unavailable Unavailable Leeann Rinaldi MD Unavailable Miranda Queen [facility] Unavailable Unavailable Dyan Fuentes MD Primary Care Provider [phone] Dyan Fuentes MD Unavailable [phone] Katiana Read MD Unavailable [phone] Meme Singleton PhD Unavailable [phone] Deena Garza PEDIGREE TRACER CHEMICAL MACHINE TENDER Unavailable +[phone] Mary Del Cid NP Unavailable + [phone] Elham Stack RPH Unavailable [phone] Emerita Potter HONEY PROCESSOR Unavailable [phone] Mary Del Cid NP Unavailable + [phone] Michelle Guzman DPM, Podiatry /Foot and Ankle Surgery Unavailable Dyan Fuentes MD Unavailable [phone] Mary Del Cid NP Unavailable + [phone] Aubrey Jones MD Unavailable [phone] Andrew Blanquita Shantell Unavailable Unavailable Aubrey Jones MD Unavailable Encounter Details Date Type Department Care Team (Late st Contact Info) Description 12/06/2017 MyC Medical Advice [facility] [address] [place] [id number] [place] [address] [place] [address] Social History Tobacco Use Types [...] st Contact Info) Description 08/18/2023 3:00 PM SSN/SSBN WEAPONS EQUIPMENT OPERATOR Office Visit [facility] [address] [place] [address] Katiana Read MD [address] [address] [place] [address] documented as of this encounter Visit Diagnoses Not on filedocumented in this encounter Additional Health Concerns Infection Onset Date Last Indicated Resolved Time Rule Out COVID-19 08/19/2020 08/19/2020 08/19/2020 4:40 PM SSN/SSBN WEAPONS EQUIPMENT OPERATOR Rule Out C-difficile 02/27/2021 02/27/2021 021 [...] documented as of this encounter Care Teams Waste Paper Hammermill Operator Relationship Specialty Start Date End Date Len Adhikari MD PCP - General Family Practice 11/08/16 05/09/22 [place] [address] [facility] [place] [address] PCP - Assigned PCP 11/14/16 09/12/18 [place] [address] [place] [address] PCP - General Family Medicine 05/18/22 Jovany Gonzalez MD [facility] [address] [facility] [address] [place], [place] [address] Orthopedics 02/15/17 Alem Rodriguez, ZITA Clinic Animal Cytologist 05/10/17 02/08/18 Staci Woodward NP [place] [address] [place], [place] [address] Nurse Practitioner Nurse Practitioner Psych/Mental Health 05/10/17 [facility] 02/16/18 04/12/19 [place] [address] [facility] [address] Assigned PCP 11/14/16 01/22/22 Laurita Yang, RN Clinic Animal Cytologist 12/29/18 01/07/19 Laurita Yang RN Lead Animal Cytologist 01/08/[address] [facility] [address] [place] [address] Still Worker Helper Dietitian, Registered 07/25/19 [place] [address] [facility] [address] [place] [address] Assigned Musculoskeletal Provider 05/02/20 09/13/20 Katiana Read MD [address] [facility] [address] [place] [address] Assigned Endocrinology Provider 05/02/20 08/01/21 Jovita Daly MD [address] [place] [address] Assigned Surgical Provider 05/02/20 10/04/20 Alexander López MD [address] [address] [place] [address] Assigned Sleep Provider 05/02/20 11/15/20 Jese Doyle MD [address] [place] [address] Assigned Pulmonology Provider 05/02/20 04/11/21 Roshni Nascimento, RN Personal Advocate & Liaison (PAL) Family Medicine 08/18/20 Johana Groves [facility] [address] [place], [place] [phone] Pharmacist Pharmacist 08/28/20 11/26/20 Kiet Swain MD [address] [place] [address] [phone] Referring Physician Psychiatry 09/19/20 Winsome Pike APRN CHEMICAL MACHINE TENDER [address] [place] [address] [phone] Nurse Practitioner Psychiatry 09/19/20 Tori Hines [facility] [address] [place] [address] [phone] Lodge Officer Lodge Officer - Clinical 09/19/20 [facility] [address] [place] [address] Pharmacist Pharmacist 11/12/20 Winsome Pike APRN CHEMICAL MACHINE TENDER [address] [place] [address] [phone] Assigned Behavioral Health Provider 01/04/21 07/02/22 Marisel Armando MD [address] [place] [address] [id number] Gastroenterology 02/05/21 Marisel Armando MD [address] [place] [address] Assigned Gastroenterology Provider 03/08/21 12/24/22 Inderjit Ugalde MD [address] [place] [address] Assigned Surgical Provider 02/15/21 08/20/22 Wesley Barrett MD [address] [facility] 96 [place] [address] Assigned Neuroscience Provider 05/10/21 Charles Jaramillo PA-C [address] [facility] [address] [place] [address] Assigned Musculoskeletal Provider 04/26/21 10/15/22 Miranda Queen [facility] [address] [place] [address] Assigned MTM Pharmacist 12/05/21 03/26/22 [place] [address] [place] [address] Assigned PCP 01/23/22 05/14/22 Miranda Queen [facility] [address] [place] [address] Assigned MTM Pharmacist 04/07/22 05/14/22 [place] [address] [place] [address] Assigned PCP 05/15/22 Katiana Read MD [address] [place] [address] Assigned Endocrinology Provider 06/19/22 [place] [address] [place] [place] [address] Assigned Behavioral Health Provider 07/03/22 12/31/22 Deena Garza APRN CHEMICAL MACHINE TENDER [address] [place] [place] [address] Assigned Pain Medication Provider 07/19/22 10/29/22 Mary Del Cid, RAFAEL [address] [place] [place] [address] Nurse Practitioner Nurse Practitioner 10/18/22 Elham Stack, [facility] [address] [place], [place] [phone] Pharmacist Pharmacist 10/19/22 Emerita Potter, [facility] Clinic Animal Cytologist Lodge Officer - Clinical 10/29/22 11/02/22 Mary Del Cid, RAFAEL [address] [place] [place] [address] Assigned Pain Medication Provider 10/30/22 12/03/22 Michelle Guzman, DPM, Podiatry/Foot and Ankle Surgery [address] [place] [place] [address] Assigned Musculoskeletal Provider 10/16/22 04/08/23 [place] [address] [place] [address] Assigned Pain Medication Provider 12/04/22 04/01/23 [place] [address] [place] [address] Nurse Practitioner Nurse Practitioner 01/17/23 01/17/23 Aubrey Jones MD [address] [place] [address] Cardiovascular Disease 03/28/23 Blanquita Morales Still Worker Helper Diabetes Education 04/25/23 Aubrey Jones MD [address] [place] [address] Assigned Heart and Vascular Provider 05/07/23 documented as of this encounter
--- OUTSIDE RECORDS SUMMARY | 2023-08-03 10:22 | XMS_ITS | Encounter Summary ---
Author Name Unknown Organization [facility] Address [address] [place] [address] Care Team Providers Care Fingerprint Technician Name Role Phone Vahid Castillo MD Primary Care Provider Unava ilable Encounter Details Date Type Department Care Team Description 09/22/1999 Orders Only Social History Tobacco Use Types Packs/Day Years Used Date Smoking Tobacco: Never Assessed Sex and Gender Information Value Date Recorded Sex Assigned at Not on file Gender Identity Not on file Sexual Orientation Not on file documented as of this encounter Plan of Treatment Not on file documented as of this encounter Visit Diagnoses Not on filedocumented in this encounter Care Teams Fingerprint Technician Relationship Specialty Start Date End Date Vahid Castillo MD PCP - General 06/06/11 documented as of this encounter
--- OUTSIDE RECORDS SUMMARY | 2023-08-03 10:22 | XMS_ITS | Encounter Summary ---
Author Name Unknown Organization [facility] Address [address], [place] [address] Care Team Providers Care Flight Reservations Manager Name Role Phone Vahid Castillo MD Primary Care Provider Unava ilable Encounter Details Date Type Department Care Team Description 01/11/2000 Orders Only [facility] [place] [address] Klaus De MD [address] [place] [address] Social History Tobacco Use Types Packs/Day Years Used Date Smoking Tobacco: Never Assessed Sex and Gender Information Value Date Recorded Sex Assigned at Not on file Gender Identity Not on file Sexual Orientation Not on file documented as of this encounter Plan of Treatment Not on file documented as of this encounter Visit Diagnoses Not on filedocumented in this encounter Care Teams Flight Reservations Manager Relationship Specialty Start Date End Date Vahid Castillo MD PCP - General 06/06/11 documented as of this encounter
--- OUTSIDE RECORDS SUMMARY | 2023-08-03 10:22 | XMS_ITS | Encounter Summary ---
Author Name Unknown Organization [facility] Address [address] [address] Care Team Providers Care Refrigerating Engineer Name Role Phone Vahid Castillo MD Primary Care Provider Unava ilable Encounter Details Date Type Department Care Team Description 12/01/1999 Orders Only [employer], [place] [address] Social History Tobacco Use Types Packs/Day Years Used Date Smoking Tobacco: Never Assessed Sex and Gender Information Value Date Recorded Sex Assigned at Not on file Gender Identity Not on file Sexual Orientation Not on file documented as of this encounter Plan of Treatment Not on file documented as of this encounter Visit Diagnoses Not on filedocumented in this encounter Care Teams Refrigerating Engineer Relationship Specialty Start Date End Date Vahid Castillo MD PCP - General 06/06/11 documented as of this encounter
--- OUTSIDE RECORDS SUMMARY | 2023-08-03 10:22 | XMS_ITS | Clinical Summary ---
Author Name Unknown [facility] Address [address], [place] [address] Care Team Providers Care Senior Hr Business Partner Name Role Phone Vahid Castillo MD Primary Care Provider Unava ilable Source Comments You are receiving this document as you are listed as the primary care provider,follow-up provider, or the patient has been referred to you for consultation.This is in compliance with the Medicare and[facility] Hospital[facility]id EHR Incentive Program,which states Providers who transition their patient to another setting of careor provider of care or refers their patient to another provider of care shouldprovide summary care record for each transition of care or referral. Formerly [facility] Allergies Active Allergy Reactions Criticality Noted Date Comments Droperidol 08/05/2006 PN: LW Reaction: belligerent Nsaids 08/05/2006 PN: LW Reaction: gi bleed Other 08/06/2006 PN: LW Other1: -nka Medications Medication Sig Dispensed Refills Start Date End Date Status acetaminophen (AKA TYLENOL) 325 MG tablet Take 1-2 tablets by mouth every 4 hours as needed. LW Addl Instr:Maximum 12 tablets/24 hours. 100 12 08/22/2006 Active Cyanocobalamin 1000 MCG/ML KIT Inject into the muscle every month. 1 0 08/03/2006 Active insulin aspart (AKA NOVOLOG) 100 UNIT/ML injection LW Comment:Basal 14.4, Bolus 1/15gm LW Addl Instr:Indicated for: Diabetes 30 3 08/20/2006 Active zolpidem tartrate (AKA AMBIEN CR) 12.5 MG controlled release tablet Take 12.5 mg by mouth at bedtime as needed for Sleep. 0 03/19/2014 Active Potassium Gluconate (EQL POTASSIUM GLUCONATE) 595 MG Take 595 mg by mouth 2 times daily. 0 06/04/2011 Active furosemide (LASIX) 20 MG tablet Take 20 mg by mouth daily (every 24 hours). 0 06/04/2011 Active lisinopril (ZESTRIL) 20 MG tablet Take 20 mg by mouth daily (every 24 hours). Indications: HYPERTENSION 0 06/04/2011 Active calcium carbonate (AKA MAALOX QUICK DISSOLVE) 600 MG chewable tablet Take by mouth 2 times daily. 0 06/04/2011 Active ALBUterol sulfate HFA 108 (90 BASE) MCG/ACT inhaler Inhale 2 puffs every 6 hours as needed. 0 06/04/2011 Active EPINEPHrine 0.1 MG/ML injection Inject 0.3 mg intravenously as needed. bee stings 0 06/04/2011 Active clonazePAM (KLONOPIN) 0.5 MG tablet Take 0.5 mg by mouth 3 times daily. 0 06/04/2011 Active nitroglycerin (NITROSTAT) 0.[address] 0.4 mg under the tongue every 5 minutes as needed. If no relief within 5 minutes call 911. 0 06/04/2011 Active levothyroxine (SYNTHROID) 200 MCG tablet Take 400 mcg by mouth daily (every 24 hours). Indications: HYPOTHYROIDISM 0 06/04/2011 Active HYDROmorphone (DILAUDID) 4 MG tablet Take 16 mg by mouth every 4 hours. Indications: PAIN 0 06/04/2011 Active busPIRone (BUSPAR) 15 MG tablet Take 15 mg by mouth 3 times daily. 0 06/04/2011 Active fentaNYL (DURAGESIC) 100 MCG/HR patch Place 4 patches onto the skin every 48 hours. Indications: PAIN 0 06/04/2011 Active carisoprodol (SOMA) 350 MG tablet Take 700 mg by mouth nightly. 0 06/04/2011 Active ascorbic acid (VITAMINC) 500 MG tablet Take 600 mg by mouth daily (every 24 hours). 0 06/04/2011 Active Active Problems Problem Noted Date Diagnosed Date Chronic pain disorder 05/06/2016 CSA (central sleep apnea) 05/06/2016 Cough 05/06/2016 Narcotic addiction 05/06/2016 RLS (restless legs syndrome) 05/06/2016 Pulmonary emphysema 05/06/2016 Hypoxemia 05/06/2016 MARIELLE (obstructive sleep apnea) 10/03/2013 Overview: Setting: EPAP 10, max 15, PS min 4, max 15, Max pressure 25 Supplied by: Tay PSG done: 11/05/13 AHI 20 RDI 24 Lowest O2 Sat: 79% 03/19/14 New, FFM 03-19-14 ; Moderate MARIELLE (obstructive sleep apnea) Insulin pump in place 06/07/2011 Other activity(E029.9) 06/07/2011 Overview: implantable pain pump - not using Personality disorder 06/07/2011 Anxiety state 06/07/2011 Overview: Anxiety state, unspecified C. 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 Overview: LW Modifier: DM,B12 def.,hypothyroid ; Polyglandular Dysfunction NOS Type 2 diabetes mellitus, controlled 11/02/2005 Overview: DM Hypothyroidism 12/15/2002 Overview: Hypothyroidism Acquired Lumbago 12/15/2002 Overview: Pain Low Back Immunizations Name Administration Dates Next Due Influenza IIV4 (Quadrivalent ) 0.5mL (32299) 03/19/2014 Influenza, Unspecified Formulation 08/22/2006 Td 12/10/1998,04/05/1990 Varicella 04/16/1999(Deferred: Immune by Ricardo iverson) Family History Medical History Relation Name Comments Crohn's Disease Other 3 cousins Relation Name Status Comments Other Social History Tobacco Use Types Packs/Day Years Used Date Smoking Tobacco: Every Day Cigarettes 2 45 Smokeless Tobacco: Never Sex and Gender Information Value Date Recorded Sex Assigned at Not on file Gender Identity Not on file Sexual Orientation Not on file Last Filed Vital Signs Vital Sign Reading Time Taken Comments Blood Pressure 122/87 05/06/2016 2:09 PM CDT Pulse 81 05/06/2016 2:09 PM CDT Temperature 36.9 ??C (98.4 ??F) 06/08/2011 7:00 AM CS T Respiratory Rate 18 06/08/2011 7:00 AM MUD CLEANER OPERATOR Oxygen Saturation 93% 05/06/2016 2:09 PM CDT Inhaled Oxygen Concentration - - Weight 101.6 kg (224 lb) 05/06/2016 2:09 PM CDT Height 170.2 cm (5' 7) 03/19/2014 10:10 AM CDT Body Mass Index 35.08 03/19/2014 10:10 AM CDT Plan of Treatment Health Maintenance Due Date Last Done Comments Colon Cancer Screening Plan Due 1959 Diabetes: Foot Exam 1959 Diabetes: Lipid Panel 1960 COVID-19 Vaccine (#1) 06/11/1960 Pneumococcal (1 - PCV) 12/10/1965 Adult Preventive Visit 12/10/1994 12/10/1993 Diabetes: Eye Exam 03/24/1996 03/24/1995, 0 09/04/1993, 09/04/1993 Cervical Cancer Screening Due 08/19/1998 08/18/1998 Diabetes: Urine Microalbumin 01/05/2001 01/06/2000 Mammogram 03/29/2001 03/29/2000, 03/29/2000 Diabetes: HGBA1C 11/17/2006 08/20/2006, , 08/17/1999, Additional history exists Zoster/Shingles (1 of 2) 12/10/2009 Diabetes: Creatinine 06/07/2012 06/07/2011, 06/06/2011, 06/05/2011, Additional history exists DTaP/Tdap/Td (2 - Tdap) 12/25/2019 12/25/19, 12/10/1998, 04/05/1990 Influenza (#1) 2023 03/19/2014, 08/22/2006 HIV Screening (Preventive Services) Completed 08/19/2006 Hep C Screening (Preventive Services) Completed 08/19/2006 HepA Aged Out No longer eligi ble based on patient's age to complete this topic HepB Aged Out No longer eligi ble based on patient's age to complete this topic Hib Aged Out No longer eligi ble based on patient's age to complete this topic IPV (Polio) Aged Out No longer eligi ble based on patient's age to complete this topic MCV4 Aged Out No longer eligi ble based on patient's age to complete this topic Care Teams Senior Hr Business Partner Relationship Specialty Start Date End Date Vahid Castillo MD PCP - General 06/06/11
--- OUTSIDE RECORDS SUMMARY | 2023-08-03 10:22 | XMS_ITS | Encounter Summary ---
Author Name Unknown Organization [facility] Address [address], [place] [address] Care Team Providers Care Rn Anesthetist Name Role Phone Vahid Castillo MD Primary Care Provider Unava ilable Encounter Details Date Type Department Care Team Description 11/30/1999 Orders Only [facility], [place] [address] Social History Tobacco Use Types Packs/Day Years Used Date Smoking Tobacco: Never Assessed Sex and Gender Information Value Date Recorded Sex Assigned at Not on file Gender Identity Not on file Sexual Orientation Not on file documented as of this encounter Plan of Treatment Not on file documented as of this encounter Visit Diagnoses Not on filedocumented in this encounter Care Teams Rn Anesthetist Relationship Specialty Start Date End Date Vahid Castillo MD PCP - General 06/06/11 documented as of this encounter
--- OUTSIDE RECORDS SUMMARY | 2023-08-03 10:22 | XMS_ITS ---
Author Name Unknown Organization [facility] Address [address] [place] [address] Care Team Providers Care Sport Shoe Spike Assembler Name Role Phone Jovany Gonzalez MD Unavailable CrissyStaci jeong RECORDS MANAGEMENT SPECIALIST Unavailable [phone] Unavailable [phone] Roshni Nascimento RN Unavailable Unavailable Kiet Swain MD Unavailable [phone] Winsome Pike APRN SILVER SERVICE WAITER Unavailable [phone] Tori Hines [facility] Unavailable Miranda Queen [facility] Unavailable Unavailable Marisel Armando MD Unavailable Wesley Barrett MD Unavailable [phone] Dyan Fuentes MD Primary Care Provider [phone] Dyan Fuentes MD Unavailable [phone] Katiana Read MD Unavailable [phone] Mary Del Cid RECORDS MANAGEMENT SPECIALIST Unavailable [phone] Elham Stack [facility] Unavailable [phone] Aubrey Jones MD Unavailable [phone] Blanquita Morales Unavailable Unavailable Aubrey Jones MD Unavailable [phone] Transitional Care Management Status:Closed (Closed) Start date:10/18/2022 Enrollment date:10/18/2022 End date:10/18/2022 Continued Care and Services Coordination
--- OUTSIDE RECORDS SUMMARY | 2023-08-03 10:22 | XMS_ITS | Encounter Summary ---
Author Name Unknown Organization [facility] Address [address], [place] [address] Care Team Providers Care Gandy Dancer Name Role Phone Vahid Castillo MD Primary Care Provider Unava ilable Encounter Details Date Type Department Care Team Description 10/03/1999 Orders Only [employer], [place] [address] Social History Tobacco Use Types Packs/Day Years Used Date Smoking Tobacco: Never Assessed Sex and Gender Information Value Date Recorded Sex Assigned at Not on file Gender Identity Not on file Sexual Orientation Not on file documented as of this encounter Plan of Treatment Not on file documented as of this encounter Visit Diagnoses Not on filedocumented in this encounter Care Teams Gandy Dancer Relationship Specialty Start Date End Date Vahid Castillo MD PCP - General 06/06/11 documented as of this encounter
--- OUTSIDE RECORDS SUMMARY | 2023-08-03 10:22 | XMS_ITS | Encounter Summary ---
Author Name Unknown Organization [facility] Address [address] [place] [address]. [place] [address] Care Team Providers Care Retail Representative Name Role Phone Len Adhikari MD Primary Care Provider Jovany Gonzalez MD Unavailable Alem Rodriguez RN Unavailable [facility] Unavailable [phone] [facility] Unavailable [phone] Len Adhikari MD Unavailable [phone] Len Adhikari MD Unavailable Laurita Yang RN Unavailable [phone] Laurita Yang RN Unavailable Reanna Smith RD Unavailable [phone] Jamshid Granados MD Unavailable [phone] Ktaiana Read MD Unavailable [phone] Jovita Daly MD Unavailable [phone] Alexander López MD Unamarcelina lable Jese Doyle MD Unavailable [phone] Roshni Nascimento RN Unavailable Unavailable Johana Groves [facility] Unavailable Kiet Swain MD Unavailable [phone] Winsome Pike APRN PETROLOGIST Unavailable [phone] Tori Hines TUNA PURSE SEINER Unavailable Miranda Queen [facility] Unavailable Unavailable Winsome Pike APRN PETROLOGIST Unavailable [phone] Marisel Armando MD Unavailable Marisel Armando MD Unavailable Inderjit Ugalde MD Unavailable Wesley Barrett MD Unavailable +[phone] Charles Jaramillo PA-C Unavailable +[phone] Miranda Queen [facility] Unavailable Unavailable Leeann Rinaldi MD Unavailable Miranda Queen [facility] Unavailable Unavailable Dyan Fuentes MD Primary Care Provider [phone] Dyan Fuentes MD Unavailable [phone] Katiana Read MD Unavailable [phone] Meme Singleton PhD Unavailable [phone] Deena Garza PROCESSING ASSOCIATE PETROLOGIST Unavailable +[phone] Mary Del Cid NP Unavailable + [phone] Elham Stack RPH Unavailable [phone] Emerita Potter TUNA PURSE SEINER Unavailable +[phone] Mary Del Cid NP Unavailable + [phone] Michelle Guzman DPM, Podiatry /Foot and Ankle Surgery Unavailable Dyan Fuentes MD Unavailable +[phone] Mary Del Cid NP Unavailable + [phone] Aubrey Jones MD Unavailable + [phone] Blanquita Morales Unavailable Unavailable Aubrey Jones MD Unavailable [phone] Reason for Visit * Reason Onset Date Comments MyChart Communication 09/27/2017 Encounter Details Date Type Department Care Team (Late st Contact Info) Description 09/27/2017 MyC Medical Advice [facility] [address] [place] [address] [place] [address] [place] [address] MyChart Communication Social History Tobacco [...] Telephone Encounter - Roshni Nascimento RN - 09/27/2017 9:19 AM CDT See my chart below - Advised to ER with frequent falls, N/V and uncontrolled jerking and body movements. \ Eligibility And Occupancy Interviewer did talk with pt yesterday to review labs and schedule OV for today. She did not report being ill at that time. She sounded well on the phone and was appropriate and alert during the phone call. Roshni Nascimento RN documented in this encounter Plan of Treatment Upcoming Encounters Date Type Department Care Team (Late st Contact Info) Description 08/18/2023 3:00 PM FIELD RESEARCH ASSISTANT Office Visit [facility] [address] [place] [address] Katiana Read MD [address] [place] [address] [address] [place] [address] documented as of this encounter Visit Diagnoses Not on filedocumented in this encounter Additional Health Concerns Infection Onset Date Last Indicated Resolved Time Rule Out COVID-19 08/19/2020 08/19/2020 08/19/2020 4:40 PM FIELD RESEARCH ASSISTANT Rule Out C-difficile 02/27/2021 02/27/2021 021 [...] documented as of this encounter Care Teams Retail Representative Relationship Specialty Start Date End Date Len Adhikari MD PCP - General Family Practice 11/08/16 05/09/22 [place] [address] [place] [address] PCP - Assigned PCP 11/14/16 09/12/18 [place] [address] [place] [address] PCP - General Family Medicine 05/18/22 Jovany Gonzalez MD [facility] 66[address] [facility] [address] [place] [address] Orthopedics 02/15/17 Alem Rodriguez, [facility] Clinic Search Engine Optimization Strategist 05/10/17 02/08/18 Staci Woodward DIRECTOR PROJECT MANAGEMENT [place] [address] [place], [place] [address] Nurse Practitioner Nurse Practitioner Psych/Mental Health 05/10/17 [facility] ([facility] ([place]) 02/16/18 04/12/19 [place] [address] [facility] [place] [address] Assigned PCP 11/14/16 01/22/22 Laurita Yang, RN Clinic Search Engine Optimization Strategist 12/29/18 01/07/19 Laurita Yang, RN Lead Search Engine Optimization Strategist 01/08/[address] [place] [address] [place] [address] Annealing Furnace Operator Dietitian, Registered 07/25/19 [place] [address] [facility] [address] [place], [place] [address] Assigned Musculoskeletal Provider 05/02/20 09/13/20 Katiana Read MD [address] [place] [address] 200 [place], [place] [address] Assigned Endocrinology Provider 05/02/20 08/01/21 Jovita Daly MD [address] [place], [place] [address] Assigned Surgical Provider 05/02/20 10/04/20 Alexander López MD [address] [place] [address] 106 [place], [place] [address] Assigned Sleep Provider 05/02/20 11/15/20 Jese Doyle MD 909 [place] [address] Assigned Pulmonology Provider 05/02/20 04/11/21 Roshni Nascimento RN Personal Advocate & Liaison (PAL) Family Medicine 08/18/20 [facility] 14[address] [facility] [place] [address] Pharmacist Pharmacist 08/28/20 11/26/20 Kiet Swain MD [address] [place] [address] Referring Physician Psychiatry 09/19/20 Winsome Pike APRN PETROLOGIST [address] [address] Nurse Practitioner Psychiatry 09/19/20 Tori Hines, [facility] [place] [address] Family Nurse Family Nurse - Clinical 09/19/20 Miranda Queen, [facility] [address] [place] [address] Pharmacist Pharmacist 11/12/20 Winsome Pike APRN PETROLOGIST [address] [place] [address] 403754 Assigned Behavioral Health Provider 01/04/21 07/02/22 Marisel Armando MD [address] [place] [address] Gastroenterology 02/05/21 Marisel Armando MD [address] [place] [address] 537985 Assigned Gastroenterology Provider 03/08/21 12/24/22 Inderjit Ugalde MD [address] [facility] 300 [place], [place] [address]317 Assigned Surgical Provider 02/15/21 08/20/22 Wesley Barrett MD 420 [facility] 96 [place], [place] [address] Assigned Neuroscience Provider 05/10/21 Charles Jaramillo PA-C [address] [address] Assigned Musculoskeletal Provider 04/26/21 10/15/22 Miranda Queen RPH [address] [place] [address] Assigned MTM Pharmacist 12/05/21 03/26/22 [place] [address] [place] [address] Assigned PCP 01/23/22 05/14/22 Miranda Queen [facility] [address] [place] [address] Assigned MTM Pharmacist 04/07/22 05/14/22 [place] [address] [place] [address] Assigned PCP 05/15/22 Katiana Read MD [address] [place] [address] Assigned Endocrinology Provider 06/19/22 [place] [address] [place] [address] Assigned Behavioral Health Provider 07/03/22 12/31/22 Deena Garza APRN PETROLOGIST [address] [place] [address] Assigned Pain Medication Provider 07/19/22 10/29/22 Mary Del Cid, [place]FA[place] [address] [place] [address] Nurse Practitioner Nurse Practitioner 10/18/22 [facility] 30[address] [place] [address] Pharmacist Pharmacist 10/19/22 Emerita Potter, [facility] Clinic Search Engine Optimization Strategist Family Nurse - Clinical 10/29/22 11/02/22 [place] [address] [address] [place] [place] [address] Assigned Pain Medication Provider 10/30/22 12/03/22 Michelle Guzman DPM, Podiatry/Foot and Ankle Surgery [address] [place] [address] Assigned Musculoskeletal Provider 10/16/22 04/08/23 [place] [address] [place] [address] Assigned Pain Medication Provider 12/04/22 04/01/23 [place] [address] [place] [address] Nurse Practitioner Nurse Practitioner 01/17/23 01/17/23 Aubrey Jones MD [address] [place] [address] Cardiovascular Disease 03/28/23 Blanquita Morales Annealing Furnace Operator Diabetes Education 04/25/23 Aubrey Jones MD [address] [place] [address] Assigned Heart and Vascular Provider 05/07/23 documented as of this encounter
--- OUTSIDE RECORDS SUMMARY | 2023-08-03 10:22 | XMS_ITS | Encounter Summary ---
Author Name Unknown Organization [facility] Address [address] [place] [address]. [place] [address] Care Team Providers Care Fish Roe Technician Name Role Phone None Unavailable Unavailable Staci Villatoro RN Unavailable [phone] Len Adhikari MD Primary Care Provider DerianJovany stockton MD Unavailable Alem Rodriguez RN Unavailable [facility] Unavailable [phone] [facility] Unavailable Len Adhikari MD Unavailable Len Adhikari MD Unavailable [phone] Laurita Yang RN Unavailable [phone] Laurita Yang RN Unavailable [phone] Unavailable Jamshid Granados MD Unavailable Katiana Read MD Unavailable [phone] Jovita Daly MD Unavailable [phone] Alexander López MD Jese Doyle MD Unavailable [phone] Roshni Nascimento RN Unavailable Unavailable Johana Groves [facility] Unavailable Kiet Swain MD Unavailable [phone] Winsome Pike APRN SHEET METAL SHOP HELPER Unavailable [phone] Tori Hines APPLIANCE REPAIRER Unavailable Miranda Queen [facility] Unavailable Unavailable Winsome Pike APRN SHEET METAL SHOP HELPER Unavailable [phone] Marisel Armando MD Unavailable Marisel Armando MD Unavailable Inderjit Ugalde MD Unavailable [phone] Wesley Barrett MD Unavailable +[phone] Charles Jaramillo PA-C Unavailable +[phone] Miranda Queen [facility] Unavailable Unavailable Leeann Rinaldi MD Unavailable Miranda Queen [facility] Unavailable Unavailable Dyan Fuentes MD Primary Care Provider [phone] Dyan Fuentes MD Unavailable [phone] Katiana Read MD Unavailable [phone] Meem Singleton PhD Unavailable +[phone] Deena Garza MANAGER PET SHEET METAL SHOP HELPER Unavailable [phone] Mary Del Cid NP Unavailable + [phone] Elham Stack RPH Unavailable [phone] Emerita Potter APPLIANCE REPAIRER Unavailable +[phone] Mary Del Cid NP Unavailable + [phone] Michelle Guzman DPM, Podiatry /Foot and Ankle Surgery Unavailable Dyan Fuentes MD Unavailable [phone] Mary Del Cid NP Unavailable [phone] Aubrey Jones MD Unavailable [phone] DarwinBlanquita giraldo Unavailable Unavailable Aubrey Jones MD Unavailable [phone] Reason for Visit * Reason Comments Medication Refill Encounter Details Date Type Department Care Team (Late Contact Info) Description 06/24/2017 Refill [facility] [address], [place] [address] [place] [address] [place] [address] Medication Refill Social History Tobacco Use Types Packs/Day Years Used Date Smoking Tobacco: Every Day Cigarettes 40 Smokeless Tobacco: Never Comments:1-2 cigs per week Alcohol Use Standard Drinks/Week Comments Yes 0 (1 standard drink = 0.6 oz pur e alcohol) rarely Sex and Gender Information Value Date Recorded Sex Assigned at Female 01/24/2020 11:14 AM CDT Gender Identity Female 11/15/2020 9:02 PM CDT Sexual Orientation Straight 11/06/2020 8: 58 AM CDT documented as of this encounter Miscellaneous Notes * Telephone Encounter - Roshni Nascimento RN - 06/24/2017 12:41 PM CST Called to pharmacy - This med comes from [facility] Nascimento RN SETTING MACHINE TENDER documented in this encounter Plan of Treatment Upcoming Encounters Date Type Department Care Team (Late Contact Info) Description 08/18/2023 3:00 PM TYPESETTING MACHINE TENDER Office Visit [facility] [address] [place] [address] Katiana Read MD [address] [address] [place] [address] documented as of this encounter Visit Diagnoses Diagnosis Other chronic pain Chronic abdominal pain Abdominal pain, unspecified site C. difficile diarrhea Intestinal infection due to clostridium difficile documented in this encounter Additional Health Concerns Infection Onset Date Last Indicated Resolved Time Rule Out COVID-19 08/19/2020 08/19/2020 08/19/2020 4:40 PM TYPESETTING MACHINE TENDER Rule Out C-difficile 02/27/2021 02/27/2021 021 6:10 [...] documented as of this encounter Care Teams Fish Roe Technician Relationship Specialty Start Date End Date Len Adhikari MD PCP - General Family Practice 11/08/16 05/09/22 [place] [address] [facility] [address] PCP - Assigned PCP 11/14/16 09/12/18 [place] [address] [place] [address] PCP - General Family Medicine 05/18/22 None 12/09/11 08/31/17 Staci Villatoro, RN Registered Nurse 11/10/15 08/30/17 Jovany Gonzalez MD [facility] 6600 [facility] 605 [place] [address] Orthopedics 02/15/17 Alem Rodriguez, [facility] Chip Separator 05/10/17 02/08/18 Staci Woodward, LABEL CODER [place] [address] [place] [address] Nurse Practitioner Nurse Practitioner Psych/Mental Health 05/10/17 [facility] 02/16/18 04/12/19 [place] [address] [facility] [place] [address] Assigned PCP 11/14/16 01/22/22 Laurita Yang, RN Clinic Chip Separator 12/29/18 01/07/19 Laurita Yang, RN Lead Chip Separator 01/08/19 9 Reanna Smith, RD [address] [address] Shipyard Laborer Dietitian, Registered 07/25/19 [place] [address] [facility] [address] [place], [place] [address] Assigned Musculoskeletal Provider 05/02/20 09/13/20 Katiana Read MD [address] [place], [place] [address] Assigned Endocrinology Provider 05/02/20 08/01/21 Jovita Daly MD [address] [place], [place] [address] Assigned Surgical Provider 05/02/20 10/04/20 Alexander López MD [address] [place] [address] [address] [place] [address] Assigned Sleep Provider 05/02/20 11/15/20 Jese Doyle MD 909 [place], [place] 84[address] Assigned Pulmonology Provider 05/02/20 04/11/21 Roshni Nascimento RN Personal Advocate & Liaison (PAL) Family Medicine 08/18/20 [facility] 14[address] [facility] [address] Pharmacist Pharmacist 08/28/20 11/26/20 Kiet Swain MD [address] [place], [place] [address] [place] [address] Referring Physician Psychiatry 09/19/20 Winsome Pike APRN SHEET METAL SHOP HELPER [address] [address] Nurse Practitioner Psychiatry 09/19/20 Tori Hines, [facility] [place] [address] Car Runner Car Runner - Clinical 09/19/20 Miranda Queen, [facility] [address] [place] [address] Pharmacist Pharmacist 11/12/20 Winsome Pike APRN SHEET METAL SHOP HELPER [address] [address] Assigned Behavioral Health Provider 01/04/21 07/02/22 Marisel Armando MD [address] [place] [address] Gastroenterology 02/05/21 Marisel Armando MD [address] [place] [address] 645605 Assigned Gastroenterology Provider 03/08/21 12/24/22 Inderjit Ugalde MD [address] [facility] 300 [place], [place] [address] Assigned Surgical Provider 02/15/21 08/20/22 Wesley Barrett MD [address] [place] [address] 96 [place], [place] [address] Assigned Neuroscience Provider 05/10/21 Charles Jaramillo PA-C [address] [address] Assigned Musculoskeletal Provider 04/26/21 10/15/22 Miranda Queen [facility] [address] [place] [address] Assigned MTM Pharmacist 12/05/21 03/26/22 [place] [address] [place] [address] Assigned PCP 01/23/22 05/14/22 Miranda Queen [facility] [address] [place] [address] Assigned MTM Pharmacist 04/07/22 05/14/22 [place] [address] [place] [address] Assigned PCP 05/15/22 Katiana Read MD [address] [address] Assigned Endocrinology Provider 06/19/22 [place] [address] [place] [address] Assigned Behavioral Health Provider 07/03/22 12/31/22 Deena Garza APRN SHEET METAL SHOP HELPER [address] [place] [address] Assigned Pain Medication Provider 07/19/22 10/29/22 Mary Del Cid, RAFAEL [address] [place] [place] [address] Nurse Practitioner Nurse Practitioner 10/18/22 Elham Stack, [facility] [address] [place] [address] Pharmacist Pharmacist 10/19/22 Emerita Potter, [facility] Clinic Chip Separator Car Runner - Clinical 10/29/22 11/02/22 Mary Del Cid, RAFAEL [address] [place] [address] Assigned Pain Medication Provider 10/30/22 12/03/22 Michelle Guzman, ALDOM, Podiatry/Foot and Ankle Surgery [address] [place] [address] Assigned Musculoskeletal Provider 10/16/22 04/08/23 [place] [address] [place] [address] Assigned Pain Medication Provider 12/04/22 04/01/23 [place] [address] [place] [address] Nurse Practitioner Nurse Practitioner 01/17/23 01/17/23 Aubrey Jones MD [address] [place] [address] Cardiovascular Disease 03/28/23 Blanquita Morales Shipyard Laborer Diabetes Education 04/25/23 Aubrey Jones MD [address] [place] [address] Assigned Heart and Vascular Provider 05/07/23 documented as of this encounter
--- OUTSIDE RECORDS SUMMARY | 2023-08-03 10:22 | XMS_ITS | Encounter Summary ---
Author Name Unknown Organization [facility] Address [address], [place] [address] Care Team Providers Care Assembler Engine Name Role Phone Vahid Castillo MD Primary Care Provider Unava ilable Encounter Details Date Type Department Care Team Description 09/30/1999 Orders Only ComActivity, [place] [address] Social History Tobacco Use Types Packs/Day Years Used Date Smoking Tobacco: Never Assessed Sex and Gender Information Value Date Recorded Sex Assigned at Not on file Gender Identity Not on file Sexual Orientation Not on file documented as of this encounter Plan of Treatment Not on file documented as of this encounter Visit Diagnoses Not on filedocumented in this encounter Care Teams Assembler Engine Relationship Specialty Start Date End Date Vahid Castillo MD PCP - General 06/06/11 documented as of this encounter
--- OUTSIDE RECORDS SUMMARY | 2023-08-03 10:22 | XMS_ITS | Encounter Summary ---
Author Name Unknown Organization [facility] Address [address], [place] [address] Care Team Providers Care Rn Family Practice Name Role Phone Vahid Castillo MD Primary Care Provider Unava ilable Encounter Details Date Type Department Care Team Description 09/26/1999 Orders Only Xylo, [place] [address] Social History Tobacco Use Types Packs/Day Years Used Date Smoking Tobacco: Never Assessed Sex and Gender Information Value Date Recorded Sex Assigned at Not on file Gender Identity Not on file Sexual Orientation Not on file documented as of this encounter Plan of Treatment Not on file documented as of this encounter Visit Diagnoses Not on filedocumented in this encounter Care Teams Rn Family Practice Relationship Specialty Start Date End Date Vahid Castillo MD PCP - General 06/06/11 documented as of this encounter
--- OUTSIDE RECORDS SUMMARY | 2023-08-03 10:22 | XMS_ITS | Encounter Summary ---
Author Name Unknown Organization [facility] Address [address] [place] [address] Care Team Providers Care Angle Shearer Name Role Phone Vahid Castillo MD Primary Care Provider Unava ilable Encounter Details Date Type Department Care Team Description 10/02/1999 Orders Only Social History Tobacco Use Types [...] on filedocumented in this encounter Care Teams Angle Shearer Relationship Specialty Start Date End Date Vahid Castillo MD PCP - General 06/06/11 documented as of this encounter
--- OUTSIDE RECORDS SUMMARY | 2023-08-03 10:22 | XMS_ITS | Encounter Summary ---
Author Name Unknown Organization [facility] Address [address], [place] [address] Care Team Providers Care Refrigerator Glazier Name Role Phone Vahid Castillo MD Primary Care Provider Unava ilable Encounter Details Date Type Department Care Team Description 12/04/1999 Orders Only [facility] [place] [address] Klaus De MD [address] [place] [address] Social History Tobacco Use Types Packs/Day Years Used Date Smoking Tobacco: Never Assessed Sex and Gender Information Value Date Recorded Sex Assigned at Not on file Gender Identity Not on file Sexual Orientation Not on file documented as of this encounter Plan of Treatment Not on file documented as of this encounter Visit Diagnoses Not on filedocumented in this encounter Care Teams Refrigerator Glazier Relationship Specialty Start Date End Date Vahid Castillo MD PCP - General 06/06/11 documented as of this encounter
--- OUTSIDE RECORDS SUMMARY | 2023-08-03 10:22 | XMS_ITS | Encounter Summary ---
Author Name Unknown Organization [facility] Address [address], [place] [address] Care Team Providers Care Morgue Keeper Name Role Phone Vahid Castillo MD Primary Care Provider Unava ilable Encounter Details Date Type Department Care Team Description 12/08/1999 Orders Only Extreme Wireless Communication, [place] [address] Social History Tobacco Use Types Packs/Day Years Used Date Smoking Tobacco: Never Assessed Sex and Gender Information Value Date Recorded Sex Assigned at Not on file Gender Identity Not on file Sexual Orientation Not on file documented as of this encounter Plan of Treatment Not on file documented as of this encounter Visit Diagnoses Not on filedocumented in this encounter Care Teams Morgue Keeper Relationship Specialty Start Date End Date Vahid Castillo MD PCP - General 06/06/11 documented as of this encounter
--- OUTSIDE RECORDS SUMMARY | 2023-08-03 10:22 | XMS_ITS ---
Author Name Unknown Organization [facility] Address [address] [place] [address] Care Team Providers Care Vessel Slagman Name Role Phone Jovany Gonzalez MD Unavailable [phone] CrissyStaci jeong GAS LINE REPAIRER Unavailable [phone] Unavailable [phone] Roshni Nascimento RN Unavailable Unavailable Kiet Swain MD Unavailable [phone] Winsome Pike APRN FOREMAN SHIPPING DEPARTMENT Unavailable [phone] Tori Hines [facility] Unavailable Miranda Queen [facility] Unavailable Unavailable Marisel Armando MD Unavailable Wesley Barrett MD Unavailable [phone] Dyan Fuentes MD Primary Care Provider [phone] Dyan Fuentes MD Unavailable [phone] Katiana Read MD Unavailable [phone] Mary DelC id GAS LINE REPAIRER Unavailable + [phone] Elham Stack [facility] Unavailable [phone] Aubrey Jones MD Unavailable [phone] Blanquita Morales Unavailable Unavailable Aubrey Jones MD Unavailable [phone] Diabetes Self-Management Education Status:Enrolled (Active) Start date:04/11/2023 Enrollment date:04/25/2023 Current support & services provided:Type 2 Diabetes Management, Individual Education Case Team Name Relationship Phone Blanquita Morales Competency Evaluated Nurse Aide(Responsible [facility]) Continued Care and Services Coordination
--- OUTSIDE RECORDS SUMMARY | 2023-08-03 10:22 | XMS_ITS | Encounter Summary ---
Author Name Unknown Organization [facility] Address [address] [address] Care Team Providers Care Senior Clinical Research Associate Name Role Phone Vahid Castillo MD Primary Care Provider Unava ilable Encounter Details Date Type Department Care Team Description 01/26/2000 Orders Only [facility] [place] [address] Klaus De MD [address] [place] [address] Social History Tobacco Use Types Packs/Day Years Used Date Smoking Tobacco: Never Assessed Sex and Gender Information Value Date Recorded Sex Assigned at Not on file Gender Identity Not on file Sexual Orientation Not on file documented as of this encounter Plan of Treatment Not on file documented as of this encounter Visit Diagnoses Not on filedocumented in this encounter Care Teams Senior Clinical Research Associate Relationship Specialty Start Date End Date Vahid Castillo MD PCP - General 06/06/11 documented as of this encounter
--- OUTSIDE RECORDS SUMMARY | 2023-08-03 10:22 | XMS_ITS ---
Author Name Unknown Organization [facility] Address [address] [place] [address] Care Team Providers Care Motion Picture Commentator Name Role Phone Jovany Gonzalez MD Unavailable CrissyStaci jeong FIREARMS SPECIALIST Unavailable [phone] Unavailable [phone] Roshni Nascimento RN Unavailable Unavailable Kiet Swain MD Unavailable [phone] Winsome Pike APRN SNUFF CONTAINER INSPECTOR Unavailable [phone] Tori Hines [facility] Unavailable Miranda Queen [facility] Unavailable Unavailable Marisel Armando MD Unavailable Wesley Barrett MD Unavailable [phone] Dyan Fuentes MD Primary Care Provider [phone] Dyan Fuentes MD Unavailable [phone] Katiana Read MD Unavailable [phone] Mary Del Cid FIREARMS SPECIALIST Unavailable + [phone] Elham Stack [facility] Unavailable [phone] Aubrey Jones MD Unavailable [phone] Blanquita Morales Unavailable Unavailable Aubrey Jones MD Unavailable [phone] Primary Care Care Coordination Status:Closed (Closed) Start date:10/29/2022 End date:11/02/2022 Close reason:Duplication of Care Management services Continued Care and Services Coordination
--- OUTSIDE RECORDS SUMMARY | 2023-08-03 10:22 | XMS_ITS ---
Author Name Unknown Organization [place] Address [address] [place] [address] Care Team Providers Care Shot Man Name Role Phone Jovany Gonzalez MD Unavailable [phone] CrissyStaci jeong DISABILITY COORDINATOR Unavailable [phone] Unavailable [phone] Roshni Nascimento RN Unavailable Unavailable Kiet Swain MD Unavailable [phone] Winsome Pike APRN TRUCK CRANE OPERATOR HELPER Unavailable [phone] Tori Hines [facility] Unavailable Miranda Queen [facility] Unavailable Unavailable Marisel Armando MD Unavailable Wesley Barrett MD Unavailable [phone] Dyan Fuentes MD Primary Care Provider [phone] Dyan Fuentes MD Unavailable [phone] Katiana Read MD Unavailable [phone] Mary Del Cid DISABILITY COORDINATOR Unavailable + [phone] Elham Stack [facility] Unavailable [phone] Aubrey Jones MD Unavailable [phone] Blanquita Morales Unavailable Unavailable Aubrey Jones MD Unavailable [phone] Transitional Care Management Status:Closed (Closed) Start date:12/13/2022 Enrollment date:12/13/2022 End date:12/27/2022 Close reason:Goals met Continued Care and Services Coordination
--- OUTSIDE RECORDS SUMMARY | 2023-08-03 10:23 | XMS_ITS | Encounter Summary ---
Author Name Unknown Organization [facility] Address [address] [place] [address] Care Team Providers Care Decal Transferrer Name Role Phone Vahid Castillo MD Primary Care Provider Unava ilable Encounter Details Date Type Department Care Team Description 09/18/1999 Orders Only Social History Tobacco Use Types [...] on filedocumented in this encounter Care Teams Decal Transferrer Relationship Specialty Start Date End Date Vahid Castillo MD PCP - General 06/06/11 documented as of this encounter
--- OUTSIDE RECORDS SUMMARY | 2023-08-03 10:23 | XMS_ITS | Encounter Summary ---
Author Name Unknown Organization [facility] Address [address], [place] [address] Care Team Providers Care Silk Folder Name Role Phone Vahid Castillo MD Primary Care Provider Unava ilable Encounter Details Date Type Department Care Team Description 10/11/1994 Orders Only [facility] Jese Courtney MD [facility] [id number] [place] [address] Social History Tobacco Use Types Packs/Day Years Used Date Smoking Tobacco: Never Assessed Sex and Gender Information Value Date Recorded Sex Assigned at Not on file Gender Identity Not on file Sexual Orientation Not on file documented as of this encounter Plan of Treatment Not on file documented as of this encounter Visit Diagnoses Not on filedocumented in this encounter Care Teams Silk Folder Relationship Specialty Start Date End Date Vahid Castillo MD PCP - General 06/06/11 documented as of this encounter
--- OUTSIDE RECORDS SUMMARY | 2023-08-03 10:23 | XMS_ITS | Encounter Summary ---
Author Name Unknown Organization [facility] Address [address] [address] Care Team Providers Care Administrative Executive Name Role Phone Vahid Castillo MD Primary Care Provider Unava ilable Encounter Details Date Type Department Care Team Description 04/19/1995 Orders Only [facility] Jese Courtney MD [facility] [id number] [place] [address] Social History Tobacco Use Types Packs/Day Years Used Date Smoking Tobacco: Never Assessed Sex and Gender Information Value Date Recorded Sex Assigned at Not on file Gender Identity Not on file Sexual Orientation Not on file documented as of this encounter Plan of Treatment Not on file documented as of this encounter Visit Diagnoses Not on filedocumented in this encounter Care Teams Administrative Executive Relationship Specialty Start Date End Date Vahid Castillo MD PCP - General 06/06/11 documented as of this encounter
--- OUTSIDE RECORDS SUMMARY | 2023-08-03 10:23 | XMS_ITS | Encounter Summary ---
Author Name Unknown Organization [facility] Address [address], [place] [address] Care Team Providers Care Wafer Substrate Tester Name Role Phone Vahid Castillo MD Primary Care Provider Unava ilable Encounter Details Date Type Department Care Team Description 01/26/1995 Orders Only Erick Pham MD [address] [place], [place] [address] Social History Tobacco Use Types Packs/Day Years Used Date Smoking Tobacco: Never Assessed Sex and Gender Information Value Date Recorded Sex Assigned at Not on file Gender Identity Not on file Sexual Orientation Not on file documented as of this encounter Plan of Treatment Not on file documented as of this encounter Visit Diagnoses Not on filedocumented in this encounter Care Teams Wafer Substrate Tester Relationship Specialty Start Date End Date Vahid Castillo MD PCP - General 06/06/11 documented as of this encounter
--- OUTSIDE RECORDS SUMMARY | 2023-08-03 10:23 | XMS_ITS | Encounter Summary ---
Author Name Unknown Organization [facility] Address [address], [place] [address] Care Team Providers Care Acid Wash Operator Name Role Phone Vahid Castillo MD Primary Care Provider Unava ilable Encounter Details Date Type Department Care Team Description 09/01/1999 [place] [address] [place] [address] Social History Tobacco Use Types Packs/Day Years Used Date Smoking Tobacco: Never Assessed Sex and Gender Information Value Date Recorded Sex Assigned at Not on file Gender Identity Not on file Sexual Orientation Not on file documented as of this encounter Plan of Treatment Not on file documented as of this encounter Visit Diagnoses Not on filedocumented in this encounter Care Teams Acid Wash Operator Relationship Specialty Start Date End Date Vahid Castillo MD PCP - General 06/06/11 documented as of this encounter
--- OUTSIDE RECORDS SUMMARY | 2023-08-03 10:23 | XMS_ITS | Encounter Summary ---
Author Name Unknown Organization [facility] Address [address] [place] [address] Care Team Providers Care Law Examiner Name Role Phone Vahid Castillo MD Primary Care Provider Unava ilable Encounter Details Date Type Department Care Team Description 09/16/1999 Orders Only Social History Tobacco Use Types [...] on filedocumented in this encounter Care Teams Law Examiner Relationship Specialty Start Date End Date Vahid Castillo MD PCP - General 06/06/11 documented as of this encounter
--- OUTSIDE RECORDS SUMMARY | 2023-08-03 10:23 | XMS_ITS | Encounter Summary ---
Author Name Unknown Organization [facility] Address [address], [place] [address] Care Team Providers Care School Occupational Therapist Name Role Phone Vahid Castillo MD Primary Care Provider Unava ilable Encounter Details Date Type Department Care Team Description 05/24/1995 Orders Only Bety Baldwin MD [address] [facility] [address] [place], [place] [id number] Social History Tobacco Use Types Packs/Day Years Used Date Smoking Tobacco: Never Assessed Sex and Gender Information Value Date Recorded Sex Assigned at Not on file Gender Identity Not on file Sexual Orientation Not on file documented as of this encounter Plan of Treatment Not on file documented as of this encounter Visit Diagnoses Not on filedocumented in this encounter Care Teams School Occupational Therapist Relationship Specialty Start Date End Date Vahid Castillo MD PCP - General 06/06/11 documented as of this encounter
--- OUTSIDE RECORDS SUMMARY | 2023-08-03 10:23 | XMS_ITS | Encounter Summary ---
Author Name Unknown Organization [facility] Address [address] [address] Care Team Providers Care Fence Installer Foreman Name Role Phone Vahid Castillo MD Primary Care Provider Unava ilable Encounter Details Date Type Department Care Team Description 07/20/1995 Orders Only [facility] Jese Courtney MD [address] [address] Social History Tobacco Use Types Packs/Day Years Used Date Smoking Tobacco: Never Assessed Sex and Gender Information Value Date Recorded Sex Assigned at Not on file Gender Identity Not on file Sexual Orientation Not on file documented as of this encounter Plan of Treatment Not on file documented as of this encounter Visit Diagnoses Not on filedocumented in this encounter Care Teams Fence Installer Foreman Relationship Specialty Start Date End Date Vahid Castillo MD PCP - General 06/06/11 documented as of this encounter
--- OUTSIDE RECORDS SUMMARY | 2023-08-03 10:23 | XMS_ITS | Encounter Summary ---
Author Name Unknown Organization [facility] Address [address] [address] Care Team Providers Care Physician Non Invasive Cardiologist Name Role Phone Vahid Castillo MD Primary Care Provider Unava ilable Encounter Details Date Type Department Care Team Description 07/21/1995 Orders Only Bety Baldwin MD [address] [facility] [address] [place], [place] [id number] Social History Tobacco Use Types Packs/Day Years Used Date Smoking Tobacco: Never Assessed Sex and Gender Information Value Date Recorded Sex Assigned at Not on file Gender Identity Not on file Sexual Orientation Not on file documented as of this encounter Plan of Treatment Not on file documented as of this encounter Visit Diagnoses Not on filedocumented in this encounter Care Teams Physician Non Invasive Cardiologist Relationship Specialty Start Date End Date Vahid Castillo MD PCP - General 06/06/11 documented as of this encounter
--- OUTSIDE RECORDS SUMMARY | 2023-08-03 10:23 | XMS_ITS | Encounter Summary ---
Author Name Unknown Organization [facility] Address [address] [place] [address] Care Team Providers Care Railroad Construction Director Name Role Phone Vahid Castillo MD Primary Care Provider Unava ilable Encounter Details Date Type Department Care Team Description 09/10/1999 Orders Only Social History Tobacco Use Types [...] on filedocumented in this encounter Care Teams Railroad Construction Director Relationship Specialty Start Date End Date Vahid Castillo MD PCP - General 06/06/11 documented as of this encounter
--- OUTSIDE RECORDS SUMMARY | 2023-08-03 10:23 | XMS_ITS | Encounter Summary ---
Author Name Unknown Organization [facility] Address [address] [address] Care Team Providers Care Tower Control Operator Name Role Phone Vahid Castillo MD Primary Care Provider Unava ilable Encounter Details Date Type Department Care Team Description 09/16/1995 [place] [address] [place] [address] Social History Tobacco Use Types Packs/Day Years Used Date Smoking Tobacco: Never Assessed Sex and Gender Information Value Date Recorded Sex Assigned at Not on file Gender Identity Not on file Sexual Orientation Not on file documented as of this encounter Plan of Treatment Not on file documented as of this encounter Visit Diagnoses Not on filedocumented in this encounter Care Teams Tower Control Operator Relationship Specialty Start Date End Date Vahid Castillo MD PCP - General 06/06/11 documented as of this encounter
--- OUTSIDE RECORDS SUMMARY | 2023-08-03 10:23 | XMS_ITS | Encounter Summary ---
Author Name Unknown Organization [facility] Address [address] [place] [address] Care Team Providers Care Micromatic Hone Operator Name Role Phone Vahid Castillo MD Primary Care Provider Unava ilable Encounter Details Date Type Department Care Team Description 08/10/1995 Orders Only Liz Robertson MD Social History Tobacco Use Types Packs/Day Years Used Date Smoking Tobacco: Never Assessed Sex and Gender Information Value Date Recorded Sex Assigned at Not on file Gender Identity Not on file Sexual Orientation Not on file documented as of this encounter Plan of Treatment Not on file documented as of this encounter Visit Diagnoses Not on filedocumented in this encounter Care Teams Micromatic Hone Operator Relationship Specialty Start Date End Date Vahid Castillo MD PCP - General 06/06/11 documented as of this encounter
--- OUTSIDE RECORDS SUMMARY | 2023-08-03 10:23 | XMS_ITS | Encounter Summary ---
Author Name Unknown Organization [facility] Address [address], [place] [address] Care Team Providers Care Utilities Ground Worker Name Role Phone Vahid Castillo MD Primary Care Provider Unava ilable Encounter Details Date Type Department Care Team Description 07/17/1995 Orders Only Erick Pham MD [address] [place], [place] [address] Social History Tobacco Use Types Packs/Day Years Used Date Smoking Tobacco: Never Assessed Sex and Gender Information Value Date Recorded Sex Assigned at Not on file Gender Identity Not on file Sexual Orientation Not on file documented as of this encounter Plan of Treatment Not on file documented as of this encounter Visit Diagnoses Not on filedocumented in this encounter Care Teams Utilities Ground Worker Relationship Specialty Start Date End Date Vahid Castillo MD PCP - General 06/06/11 documented as of this encounter
--- OUTSIDE RECORDS SUMMARY | 2023-08-03 10:23 | XMS_ITS | Encounter Summary ---
Author Name Unknown Organization [facility] Address [address] [address] Care Team Providers Care Organizational Psychologist Name Role Phone Vahid Castillo MD Primary Care Provider Unava ilable Encounter Details Date Type Department Care Team Description 07/21/1994 Orders Only [facility] Jese Courtney MD [address] [address] Social History Tobacco Use Types Packs/Day Years Used Date Smoking Tobacco: Never Assessed Sex and Gender Information Value Date Recorded Sex Assigned at Not on file Gender Identity Not on file Sexual Orientation Not on file documented as of this encounter Plan of Treatment Not on file documented as of this encounter Visit Diagnoses Not on filedocumented in this encounter Care Teams Organizational Psychologist Relationship Specialty Start Date End Date Vahid Castillo MD PCP - General 06/06/11 documented as of this encounter
--- OUTSIDE RECORDS SUMMARY | 2023-08-03 10:23 | XMS_ITS | Encounter Summary ---
Author Name Unknown Organization [facility] Address [address] [place] [address] Care Team Providers Care Corporate Quality Assurance Manager Name Role Phone Vahid Castillo MD Primary Care Provider Unava ilable Encounter Details Date Type Department Care Team Description 09/14/1999 Orders Only Social History Tobacco Use Types [...] on filedocumented in this encounter Care Teams Corporate Quality Assurance Manager Relationship Specialty Start Date End Date Vahid Castillo MD PCP - General 06/06/11 documented as of this encounter
--- OUTSIDE RECORDS SUMMARY | 2023-08-03 10:23 | XMS_ITS | Encounter Summary ---
Author Name Unknown Organization [facility] Address [address] [address] Care Team Providers Care Press Supervisor Name Role Phone Vahid Castillo MD Primary Care Provider Unava ilable Encounter Details Date Type Department Care Team Description 09/03/1999 [place] [address] [place] [address] Social History Tobacco Use Types Packs/Day Years Used Date Smoking Tobacco: Never Assessed Sex and Gender Information Value Date Recorded Sex Assigned at Not on file Gender Identity Not on file Sexual Orientation Not on file documented as of this encounter Plan of Treatment Not on file documented as of this encounter Visit Diagnoses Not on filedocumented in this encounter Care Teams Press Supervisor Relationship Specialty Start Date End Date Vahid Castillo MD PCP - General 06/06/11 documented as of this encounter
--- OUTSIDE RECORDS SUMMARY | 2023-08-03 10:23 | XMS_ITS | Encounter Summary ---
Author Name Unknown Organization [facility] Address [address] [address] Care Team Providers Care Contract Administrative Assistant Name Role Phone Vahid Castillo MD Primary Care Provider Unava ilable Encounter Details Date Type Department Care Team Description 07/29/1995 Orders Only Bety Baldwin MD [address] [facility] [address] [place], [place] [id number] Social History Tobacco Use Types Packs/Day Years Used Date Smoking Tobacco: Never Assessed Sex and Gender Information Value Date Recorded Sex Assigned at Not on file Gender Identity Not on file Sexual Orientation Not on file documented as of this encounter Plan of Treatment Not on file documented as of this encounter Visit Diagnoses Not on filedocumented in this encounter Care Teams Contract Administrative Assistant Relationship Specialty Start Date End Date Vahid Castillo MD PCP - General 06/06/11 documented as of this encounter
--- OUTSIDE RECORDS SUMMARY | 2023-08-03 10:24 | XMS_ITS | Clinical Summary ---
Author Name Unknown Organization [employer] 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 Name Role Phone Len Adhikari MD Primary Care Provider Allergies Active Allergy Reactions Criticality Noted Date Comments Hymenoptera Allergenic Extract Anaphylaxis High 01/07/2005 Droperidol 01/07/2005 mean personality changes Levofloxacin Rash 07/02/2011 Nalbuphine 01/07/2005 mean personality changes Nsaids (Non-Steroidal Anti-Inflammatory Drug) GI Bleeding Medium 01/07/2005 Promethazine Other - Describe In Comment Field 05/02/2017 Patient reports she gets mean & jerky Metoclopramide Hcl Hives 02/20/2015 Mirtazapine Mental Status Change 03/31/2016 Tolmetin GI Bleeding 08/05/2006 PN: LW Reaction: gi bleed Medications Medication Sig Dispensed Refills Start Date End Date Status albuterol HFA (PROAIR HFA) 90 mcg/actuation inhalerIndications:Si mple chronic bronchitis (HC) Inhale 2 Puffs by mouth 4 times daily if needed. 1 Inhaler 11 5 Active albuterol (PROVENTIL) 0.083 % neb solutionIndications:S imple chronic bronchitis (HC) Inhale 3 mL via a nebulizer every 6 hours if needed for Shortness Of Breath. 1 box 2 5 Active nitroglycerin (NITROSTAT) 0.4 mg sublingual tabletIndications:Ariadna st pain, unspecified type Place 1 tablet under the tongue every 5 minutes if needed for Chest Pain. 1 Bottle 0 6 Active EPINEPHrine (EPIPEN) 0.3 mg/0.3 mL injectionIndications: Bee allergy status Inject 0.3 mg intramuscular one time if needed for Allergic Reaction for up to 1 dose. 2 Each 1 6 Active cyanocobalamin (VITAMIN B12) 1,000 mcg/mL injectionIndications: Vitamin B12 deficiency INJECT 1 ML INTO THE MUSCLE EVERY 4 WEEKS 10 mL 2 7 Active carvedilol (COREG) 12.5 mg tabletIndications:HTN (hypertension) Take 1 tablet by mouth 2 times daily with meals. 60 tablet 1 7 Active desvenlafaxine succinate (PRISTIQ) 100 mg extended release tablet Take 100 mg by mouth every morning. 0 Active rosuvastatin (CRESTOR) 40 mg tablet Take 40 mg by mouth at bedtime. 0 Active zolpidem (AMBIEN) 10 mg tablet Take 10 mg by mouth at bedtime. 0 Active fentaNYL 100 mcg/hr (DURAGESIC) 100 mcg/hr patch Apply 1 Patch on dry, clean, hairless skin every 72 hours Total daily dose of 175 mcg/hr every 72 hours. 0 Active clonazePAM (KLONOPIN) 1 mg tablet Take 1 mg by mouth 2 times daily. 0 Active fentaNYL 75 mcg/hr (DURAGESIC) 75 mcg/hr patch Apply 1 Patch on dry, clean, hairless skin every 72 hours Total daily dose of 175 mcg/hr every 72 hours. 0 Active cholecalciferol (VITAMIN D3) 5,000 unit capsuleIndications:Vi tamin D deficiency Take 1 capsule by mouth once daily. 90 capsule 0 9 Active fluticasone propionate (FLOVENT HFA) 220 mcg/Actuation inhaler Inhale 2 Puffs by mouth 2 times daily if needed. 0 Active furosemide (LASIX) 20 mg tablet Take 20 mg by mouth every morning. Can repeat a second dose as needed. 0 Active hydrOXYzine HCl (ATARAX) 50 mg tabletIndications:anx iety Take 50 mg by mouth every 6 hours if needed. Indications: anxious 0 Active ondansetron (ZOFRAN) 8 mg tablet Take 8 mg by mouth every 8 hours. 0 Active lidocaine, viscous, 2% (LIDOCAINE VISCOUS) 2 % solution Take 5 mL by mouth every 4 hours if needed (moderate pain). 0 Active Potassium Gluconate 595 mg (99 mg) tablet Take 1 tablet by mouth once daily. 0 Active fenofibrate nanocrystallized (TRICOR) 48 mg tabletIndications:Hyp ertriglyceridemia Take 1 tablet by mouth once daily with a meal. 30 tablet 0 9 Active pantoprazole (PROTONIX) 40 mg delayed-release tabletIndications:Ane marisa, unspecified type Take 1 tablet by mouth once daily before a meal. 30 tablet 0 9 Active insulin aspart U-100 (NOVOLOG FLEXPEN U-100 INSULIN) 100 unit/mL (3 mL) solution for injectionIndications: Type 1 diabetes, controlled, with neuropathy (HC) Use sliding scale inject three times daily before meals: 121-150=0 units, 151-200=1 unit, 201-250=2 units, 251-300=3 units, 301-350=4 units,>350=5 units notify MD. 50 mL 0 9 Active Insulin [place], Disposable, (BD INSULIN PEN NEEDLE UF MINI) 31 gauge x 3/16 Use as directed to inject insulin. 100 Each 0 9 Active HYDROmorphone (DILAUDID) 8 mg tabletIndications:Chr onic pain syndrome Take 1 tablet by mouth up to 3 times daily as needed 15 tablet 0 9 Active torsemide (DEMADEX) 10 mg tablet Take 10 mg by mouth 2 times daily if needed for Other (Specify) (if bilat LE edema is not cleared by increased lasix dosing.). 0 Active hyoscyamine sublingual (LEVSIN/SL) 0.[address] 0.125 mg under the tongue every 4 hours if needed for Other (Specify) (pain associated with pancreatitis). 0 Active diphenhydrAMINE (BENADRYL ALLERGY) 25 mg tablet Take 75 mg by mouth each time if needed for Other (Specify) (with excedrin for headache prodrome). 0 Active aspirin-acetaminophen -caffeine, 250-250-65 mg, (EXCEDRIN) 250-250-65 mg tablet Take 2 tablets by mouth every 6 hours if needed for Other (Specify) (with benadryl for headache prodrome). Max acetaminophen dose: 4000mg in 24 hrs. 0 Active calcium carbonate (CALCIUM 500) 500 mg calcium (1,250 mg) tablet Take 500 mg by mouth once daily with a meal. 0 Active colestipol (COLESTID) 1 gram tablet Take 1 g by mouth 2 times daily. 0 Active haloperidol (HALDOL) 2 mg tablet Take 1 mg by mouth at bedtime. 0 Active levothyroxine (SYNTHROID) 175 mcg tablet Take 350 mcg by mouth before breakfast. Takes this dose every day. On Mondays, takes additional 100 mcg dose (for total Tuesday dose of 450 mcg). 0 Active levothyroxine (SYNTHROID) 100 mcg tablet Take 100 mcg by mouth every Tuesday. Takes in addition to 350 mcg dose on Mondays for total Tuesday dose of 450 mcg 0 Active omega-3 acid ethyl esters (LOVAZA;OMACOR) 1 gram capsuleIndications:Hy pertriglyceridemia Take 2 capsules by mouth 2 times daily with meals. 360 capsule 0 9 Active insulin glargine (LANTUS SOLOSTAR PEN; BASAGLAR KWIKPEN) 100 unit/mL (3 mL) pen Inject 40 Units subcutaneous every 24 hours. 15 mL 0 9 Active amLODIPine (NORVASC) 5 mg tabletIndications:Ess ential hypertension Take 1 tablet by mouth once daily. 30 tablet 0 9 Active vancomycin (FIRVANQ) oral solutionIndications:R ecurrent Clostridium difficile diarrhea Take 2.5 mL by mouth 4 times daily. 300 mL 0 9 Active ondansetron (ZOFRAN ODT) 4 mg disintegrating tabletIndications:Gen eralized abdominal pain Place 1 tablet on the tongue every 8 hours if needed for Nausea/Vomiting. 20 tablet 0 9 Active Active Problems Problem Noted Date Diagnosed Date Left-sided weakness 12/25/2018 UTI (urinary tract infection) 12/25/2018 Urinary frequency 12/04/2018 Stress-induced cardiomyopathy 11/19/2018 Overview: Occurred in 2009, now with normal EF and normal diastolic function as of 11/19/2018 Edema extremities 08/18/2018 Acute pancreatitis 06/15/2018 Right fibular fracture 02/01/2017 Recurrent Clostridium difficile diarrhea 017 Hypertriglyceridemia 07/21/2016 History of cardiac catheterization 06/04/2016 Overview: Overview: reportedly negative Calculus of kidney 06/04/2016 Hereditary and idiopathic peripheral neuropathy 06/04/2016 Overview: Overview: abstracted 12/26/01 Problem list name updated by automated process. Provider to review Gastroesophageal reflux disease 06/04/2016 Overview: Overview: abstracted 12/26/01 Narrowing of intervertebral disc space 6 Overview: Overview: abstracted 12/26/01 Severe recurrent major depre ssion without psychotic features 05/29/2016 ANTHONY (generalized anxiety disorder) 05/29/2016 Encounter for palliative care 04/01/2016 ACP advance care planning 04/01/2016 Overview: Patient has identified Health Care Agent(s): Yes Add Health Care Agents: Yes Health Care Agent(s): Primary Health Care Agent: Roosevelt Hernandez Relationship: spouse Phone: [phone] Secondary Health Care Agent: Amber Rivas Relationship: daughter Conservator: Relationship: Phone: Guardian: Relationship: Phone: Patient has Advance Care Plan Documents (Health Care Directive, POLST): Yes Advance Care Plan Documents: POLST Form Patient has identified Specific Treatment Preferences: Yes Specific Treatment Preferences: a.) Code Status: DNR/ Do Not Attempt Resuscitation - Allow a Natural b.) Goals of Treatment: i. Comfort Care. Do not intubate but use medication, oxygen, oral suction, and manual clearing of airways, etc. as needed for immediate comfort.- Avoid calling 911, call hospice - If possible do not transport to ER (EMS should consult medical control) - If possible do not admit to the hospital from the ER (e.g. when patient can be made comfortable at residence) c.) Interventions and Treatments: i. Antibiotics: - No antibiotics (use other methods to relieve symptoms whenever possible) ii. Nutrition/Hydration: - Tube feeding directly into GI tract OK for IV hydration for symptom management. Small bowel tube feeding 01/16/2016 Neurogenic bladder 01/16/2016 Overview: Overview: intermittent straight cath Chronic fatigue 01/16/2016 Serotonin syndrome mild 01/16/2016 Recurrent colitis due to Clostridium difficile 1 08/07/2014 Encounter for long-term (current) use of other m edications 01/14/2015 Overview: Controlled substance agreement for Ambien and Clonazepam on file and signed 01/14/2015. Designated pharmacy: [facility] [phone] Prescribing physician:Dr. Dyan Martin MD. Diagnosis: Dysthymia and Anxiety. Araceli Weiss .................... 01/14/2015 2:43 PM COPD (chronic obstructive pulmonary disease) 08/2014 Morbid obesity 12/10/2014 Nicotine dependence 07/12/2014 Vitamin B12 deficiency 05/08/2014 Obstructive sleep apnea syndrome 10/03/2013 Overview: Overview: Setting: EPAP 10, max 15, PS min 4, max 15, Max pressure 25 Supplied by: Tay PSG done: 11/05/13 AHI 20 RDI 24 Lowest O2 Sat: 79% 03/19/14 New, FFM 03-19-14 Seizure 10/01/2013 Chronic pain syndrome 06/05/2011 Neurogenic bladder, NOS 04/07/2010 Advance care planning 02/12/2010 Overview: Patient was admitted to hospice 12/06/15. Please call [phone] with questions. Patient has identified Health Care Agent(s): Yes Add Health Care Agents: Yes Health Care Agent(s): Primary Health Care Agent: Roosevelt Hernandez Relationship: spouse Phone: [phone] Secondary Health Care Agent: Amber Rivas Relationship: daughter Conservator: Relationship: Phone: Guardian: Relationship: Phone: Patient has Advance Care Plan Documents (Health Care Directive, POLST): Yes Advance Care Plan Documents: POLST Form Patient has identified Specific Treatment Preferences: Yes Specific Treatment Preferences: a.) Code Status: DNR/ Do Not Attempt Resuscitation - Allow a Natural b.) Goals of Treatment: i. Comfort Care. Do not intubate but use medication, oxygen, oral suction, and manual clearing of airways, etc. as needed for immediate comfort.- Avoid calling [phone], call [phone] instead - If possible do not transport to ER (EMS should consult medical control) - If possible do not admit to the hospital from the ER (e.g. when patient can be made comfortable at residence) c.) Interventions and Treatments: i. Antibiotics: - No antibiotics (use other methods to relieve symptoms whenever possible) ii. Nutrition/Hydration: - Tube feeding directly into GI tract Patient has identified Health Care Agent(s): Yes Add Health Care Agents: Yes Health Care Agent(s): Primary Health Care Agent: Rooseveltchristi FullerHernandez Relationship: Phone: (h) [phone] (c) [phone] Secondary Health Care Agent: Amber Rob Relationship: daughter Phone: (c) [phone] Third Health Care Agent: Juwan Hernandez Relationship: son Phone: (c) [phone] Fourth Health Care Agent: Delma Rob Relationship: daughter Phone: (c) [phone] Patient has Advanced Care Plan Documents (Health Care Directive, POLST): Yes Advance Care Plan Documents: Health Care Directive Patient has identified Specific Treatment Preferences: Yes Specific Treatment Preferences: a.) Code Status: CPR/Attempt Resuscitation Last Assessment & Plan: Advance Care Planning: Disease-specific Session Kaila Hernandez is a [facility] patient and her PCP is Dr. Yuriy Moreno; representative is Dr. Gonzales and Dr. Chiki Benites is her pain doctor. Advance care planning discussions were completed with Kaila and her healthcare agent, , Roosevelt Hernandez. . Understanding of Illness and Disease Melvin: Kaila identifies her medical condition as the end of her days since she has so many conditions; her heart, diabetes and the polyglandular insufficiency syndrome diagnosed in 1998; she also has had several back surgeries and has had fusions and rods put in her back in 2004 and 2006. She has an insulin pump as well as an implanted morphine pump. She states she is basically home and bed-bound. She also tells me she has osteoporosis and the start of R.A. and high cholesterol and high triglycerides and pancreatitis. She describes her condition as progressive and life limiting. She identifies the following symptoms of her medical condition as being the most bothersome: the constant pain, lack of energy and general poor health. Goals of Care: Kaila currently hopes to maintain independence, control pain and symptoms and delay progression of, but not cure, the illness. Kaila expressed during our session she hopes to become more independent, since now she has to depend on her for nearly everything as well as her sisters, who are very supportive. She does not drive anymore, doesn't do any shopping and relies on others to do this for her. 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 She states she can shower and dress herself. She does not use any kind of assistive device for ambulation. Quality of Life: The following present and future experiences are most important for Kaila to live well: Reading, Television, Gardening / Yardwork, Family Activities and her bird-feeders. Her daughters and 2 grandchildren have lived with them since 2004; however, will be moving to a condo this month in [place]. Kaila tells me she will miss them very much. Kaila edward with serious challenges in her life: Family: Spouse and Sister(s) Kaila identifies the following fears and worries about her medical care: having uncontrolled pain or symptoms and having her condition get worse. Treatment and Care Preferences: Past experiences in dealing with family and/or friends that have or been seriously ill include the of her mother in 1994 from colon cancer. She was diagnosed at age 52 and passed at age 56. She had Hospice care for 8-10 months before her passing. . As a result of these experiences, Kaila expresses these health care preferences: Summary Kaila's Treatment Preferences: LOW SURVIVAL; HIGH TREATMENT BURDEN: If Kaila suffered a serious complication, such that she was facing a prolonged hospital stay, required ongoing medical interventions, and the chance of living through the complication was low (for example, only 5 out of 100 would live), Kaila would choose: to continue all medically appropriate treatment offered so she could live as long as possible (Staying alive no matter what is most important to Kaila.) HIGH SURVIVAL; LOW FUNCTIONAL STATUS: If Kaila had a serious complication and had a good chance of living through the complication but it was expected that she would never be able to walk or talk again and would require 24 hour nursing care, she would choose: to continue all medically appropriate treatment offered so she could live as long as possible (Staying alive no matter what is most important to Kaila.) HIGH SURVIVAL; LOW COGNITIVE STATUS: If Kaila had a serious complication and had a good chance of living through the complication but it was expected that she would never know who she was or who she was with and would require 24 hour nursing care, she would choose: to continue all medically appropriate treatment offered so she could live as long as possible (Staying alive no matter what is most important to Kaila.) CARDIO-PULMONARY RESUSCITATION (CPR): The facts, risks and benefits of CPR were discussed with Kaila. If she had a sudden event that caused her heart and breathing to stop, she: WOULD want CPR attempted MECHANICAL VENTILATION: If Kaila had an episode where she was unable to breathe on her own, she would choose the following: attempt to use any appropriate non-invasive method to assist breathing, and use mechanical ventilatio Follow Up Plan: Kaila was encouraged to continue advance care planning discussions with her Designated Family Member: sisters, Designated Health Care Agent: Roosevelt de la garza and primary care provider. CPR fact sheet, Artificial Hydration and Nutrition fact sheet and information on mechanical ventilation were given to Kaila and her health care agent for review. Kaila wants to have all tretmtents provided to her at this time because of her age and also the fact that she has made it through many other medical situations. She wants treatment continued until she is pronounced brain ; and / or until her and doctor decide that she has no chance of recovery. These statements are noted in the scanned statement of treatment preferences in her chart. Documents addressed during this advance care planning session: Health Care Agents identified. Primary health care agent is Roosevelt de la garza; secondary health care agent is Amber Rivas/daughter. Health Care Directive completed and scanned into medical record. Statement of Treatment Preferences for advanced illness completed and scanned into the medical record. Recommendations/Plan: Kaila and her health care agent, Roosevelt de la garza to review Advance Care Plan with family members and her primary care physician. She understands that if her condition were to deteriorate, she can change her wishes and statement of treatment preferences on her Health Care Directive. Kaila would benefit from: Care Navigation Care Navigation Help Desk Care Navigation brochure(s) was given to Kaila and/or her healthcare agent. It was a pleasure to meet with Kaila and , Roosevelt. Call if there are questions. Respectfully, Archana Young RN CM Advance Care Planning [employer] [phone] e-mail: [email or web address] 02/11/2010 Other chronic pancreatitis 07/18/2007 Overview: [facility] hospitalizations. Thought to be largely due to hypertriglyceridemia but also due to sphincter of Oddi dysfunction in the setting of large doses of narcotics. Unspecified essential hypertension 06/15/2005 Overview: - on med since 2001 Low back pain 12/15/2002 Hypothyroidism Type 2 diabetes mellitus wit h diabetic neuropathy, with long-term current use of insulin Chronic, continuous use of o pioids - High doses, managed by Dr. Del Real Overview: Controlled substance agreement signed and scanned 01/15/15, ERX Low vitamin D level Abdominal pain, acute, epigastric Non-intractable vomiting with nausea Fever Clostridium difficile colitis MALLORY (acute kidney injury) Colitis due to Clostridium difficile Anemia Recurrent pancreatitis Positive urine culture Chronic abdominal pain Chronic pancreatitis Resolved Problems Problem Noted Date Diagnosed Date Resolved Date Cough 05/06/2016 07/21/2016 Pain of left forearm 02/16/2016 019 Recurrent major depressive disorder 01/16/2016 05/24/2016 Mild nausea and vomiting 01/16/2016 Drug-drug interaction (prope rly prescribed and administered) Probable 01/16/2016 02/18/2016 Diarrhea 06/06/2015 02/18/2016 Ingrown toenail 05/29/2015 02/18/2016 Overgrown toenails 05/29/2015 7 Acute gastroenteritis 02/21/20152015 Acute UTI (urinary tract infection) 02/20/2015 11/17/2015 E-coli UTI failed outpatient treatment 01/20/2015 02/18/2016 Diarrhea in adult patient 01/20/2015 Other specified hypothyroidism 12/30/2014 02/01/2017 C. difficile diarrhea 12/11/20142014 Chronic narcotic dependence 2014 02/01/2017 Bilateral cellulitis of lower leg 12/10/2014 07/21/2016 COPD exacerbation 04/18/2014 2014 Chronic respiratory failure with hypoxia 04/18/2014 07/28/2016 Hyperlipidemia 03/20/2014 02/18/2016 Bee allergy status 02/22/2014 4 Altered mental status 12/09/20132013 Nausea vomiting and diarrhea 04/16/2013 08/17/2013 Clostridium difficile colitis 04/16/2013 07/28/2016 Anemia 03/22/2013 05/08/2014 Acute renal failure 03/22/2013 03/30/20 13 Cellulitis of right leg 03/21/2013 1002/2014 Shortness of breath 03/21/2013 03/30/20 13 Hypothyroidism 03/21/2013 12/30/2014 Altered mental status 03/21/20132012 C. difficile diarrhea 03/21/20132013 Leg edema 03/21/2013 05/08/2014 Metabolic acidosis 03/09/2013 3 Hypotension 03/09/2013 03/30/2013 Pyelonephritis 05/17/2012 09/14/2012 Accelerated hypertension 05/17/2012 Type 1 diabetes, controlled, with neuropathy 2 05/29/2016 Overview: More consistent with Type 2 DM Myxedema 05/17/2012 05/08/2014 Dysthymia 08/26/2011 07/21/2016 N&V (nausea and vomiting) 07/27/2011 Abdominal pain, other specified site 07/27/2011 09/14/2012 Chronic low back pain 07/27/20112013 Type 1 diabetes mellitus 07/27/201111/2012 Spinal headache 07/20/2011 09/14/2012 Exhausted vascular access 07/18/2011 Diabetes mellitus type I 07/16/201111/2012 Confusional state 06/05/2011 07/21/2016 Chest pain 06/05/2011 07/21/2016 Colitis due to Clostridium difficile 06/05/2011 07/28/2016 Hyperlipidemia 11/30/2010 07/21/2016 Clostridium dificile infecti on First Relapse October 2010 10/31/2010 03/30/2013 Overview: 1st relapse hospitalized [facility] October 2010 Shortness of breath 10/19/2010 03/30/20 13 Other, mixed, or unspecified nondependent drug abuse, continuous 05/06/2010 03/30/2013 Chest pain of non-cardiac et iology; Likely musculoskeletal etiology versus chronic pain flare. 04/28/2010 09/14/2012 Overview: Patient presented 04/28/10 with complaints of classic (textbook) ACS symptoms. Was admitted for unstable angina. However patient with coronary angiogram 11/25/09 which showed, widely patent coronary arteries. Patient with NO Coronary Artery Disease. Hyponatremia 04/28/2010 04/17/2014 Tobacco abuse 04/28/2010 07/12/2014 Other and unspecified ovarian cyst 04/15/2010 05/08/2014 Overview: Simple 3.6 cm left ovarian cyst seen on ultrasound 2007. Plan: repeat ultrasound. 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 Shortness of breath 12/21/2009 01/15/20 10 Overview: Symptom continues with no objective evidence of respiratory compromise. Normal oxygen saturation. Drug-seeking behavior 12/21/20092009 Acute respiratory failure 12/19/2009 Overview: Unclear etiology. Intubated for < 12 hours. No evidence of heart failure, neurologic disease, pulmonary disease, or pulmonary embolism. Possibly due to oversedation from narcotics. Abdominal pain 12/05/2009 01/14/2010 Elev transaminase level 12/05/200901/2010 Abnormal urinalysis 12/05/2009 01/15/20 10 Overview: - ecoli - started on cipro Vein disorder 12/01/2009 01/14/2010 Overview: Poor peripheral veins - often needs PICC line for IV placement. Acute renal failure 11/25/2009 03/22/20 13 Hypokalemia 11/25/2009 01/14/2010 Chest Pain 11/24/2009 11/24/2009 Chest Pain 11/24/2009 01/14/2010 Chest pain, unspecified 11/24/200911/08 UTI (lower urinary tract infection) 07/31/2009 11/24/2009 Dilantin toxicity 10/22/2008 01/14/2010 Pneumonia due to Streptococcus pneumoniae 10/14/2008 01/14/2010 Seizure/Status Epilepticus 10/09/2008 0 10/01/2013 Overview: Patient with history of 3 previous seizures starting 10/16. She had a fall with the first seizure and was thought the seizure may have been subsequent to the fall. Second seizure was managed at [facility] and records not currently available. 3rd seziure was in 05/18 and patient had elevated EtOH level and was thought to have alcohol related seizure. She does have a history of abnormal MR showing diminished enhancemnt in the right lateral aspect of the pituitary gland consistent with a pituitary microadenoma. Status epilepticus admission 10/09/08-10/16/08, aborted with IV benzo., Dilantin load; begun on Dilantin per Dr. Montiel/OLIMPIA. Re-hospitalized 10/17/08 w/ ? seizure, low free Dilantin, so dosage increased. Metabolic acidosis 10/09/2008 0 Hypomagnesemia 10/09/2008 11/24/2009 Respiratory Failure/Compromised Airway 10/09/2008 11/24/2009 Headache(784.0) 10/09/2008 11/24/2009 Nausea with vomiting 10/09/2008 010 Diarrhea 10/09/2008 11/24/2009 Gastroparesis 08/17/2008 01/14/2010 Chronic pain 08/17/2008 05/08/2014 Overview: - morphine pain pump 09/2009. Jaime vega. Unintentional Weight Loss 08/17/2008 Family History of CRC 08/17/20082009 Withdrawal from opioids 05/28/200811/08 Diarrhea 10/19/2007 04/03/2008 Unspecified essential hypertension 10/18/2007 04/03/2008 Anemia, unspecified 10/18/2007 01/15/20 10 Backache, unspecified 10/18/20072007 Pneumonia, organism unspecified(486) 10/18/2007 04/03/2008 Unspecified hypothyroidism 10/18/2007 0 04/03/2008 Urinary tract infection, site not specified 07/30/2007 10/03/2007 Unspecified vitamin D deficiency 07/30/2007 01/14/2010 Overview: - 07/18 started on vit D3 1200 PO tid x 3 months - Check 25-OH vit D level in 10/16 - Then Rx with Ca/D 1500/1000 qd (divided doses) PANCREATITIS 07/26/2007 10/03/2007 Nausea with vomiting 07/26/2007 008 ACUTE PANCREATITIS '07 07/26/200710/02 Other B-complex deficiencies 07/14/2007 05/08/2014 CHRONIC EPIGASTRIC/ABDOMINAL PAIN / CHRONIC NAUSEA 05/08/2007 01/14/2010 Overview: - Chronic intermittent abd pain, history of recurrent pancreatitis - 07/18 EUS done due to recurrent pancreatitis of unclear etiology, no lesions/stones - 08/18 EGD normal - 08/18 Colonoscopy showing diverticulosis of descending colon and sigmoid Generalized hyperhidrosis 12/29/2006 Overview: - 12/15: 24 hr urinary catecholamines/metanephrines normal MILDLY ELEVATED SERUM LIPASE 08/02/2006 10/03/2007 Overview: LFTs nl, lipase persistantly elevated 07/[address] abd/pelvis Chronic airway obstruction, not elsewhere classified 01/24/2006 10/03/2007 Other combinations of endocrine dysfunction 08/17/2005 01/14/2010 Overview: autoimmune polyglandular syndrome ??- Dr. Balderrama. obtain more detailed records DIABETES MELLITUS 06/15/2005 07/16/2011 Overview: - dx age 24, after - gastroparesis, peripheral neuropathy - Dr. Balderrama- insulin pump 07/17 - c peptide was 2.30 in 08/19/08 - off insulin in hospital 10/2010 with mild elevation in Blood glucose required only 2 units of Corrective dose insulin ( aspart ) in > 48 hours - repeat c peptide from 10/2010 is pending - all Hemoglobin a1c readings dating back to 2005 have been under 6.1 OSTEOARTHRITIS- CHRONIC PAIN - Dr. Chiki Benites-sees monthly, on high dose chronic narcotics 06/15/2005 08/18/2018 Overview: Dr. Chiki Benites- chronic pain, sees [id number] Dr. Rhys Stockton- [facility] LBP most prominent Chronic pain syndrome 06/15/20052018 Overview: lumber and cervical disc displacement/spondylolisthesis epidural inj 06/14 ant spinal fusion/discectomy 07/28/0506/15- L4-5, L5-S1 microdiscectomy- Dr. Rhys Stockton Unspecified hereditary and i diopathic peripheral neuropathy 06/15/2005 10/06/2007 Overview: unclear if due to DM vs lumbar disc problems ?component of autonomic neuropathy- straight caths prn prev seen by neuro on neurontin, cymbalta HYPERLIPIDEMIA-HYPERTRIGLYCE RIDEMIA- Dr. Balderrama 06/15/2005 03/20/2014 Overview: 07/16- LDL 165, TG 203- zocor increased from 40mg to 80mg 01/13- tchol 294, TG 672, HDL 34- start gemfibrozil 600mg bid, stop zocor- recheck in 3 months 06/15- Dr. Balderrama- tchol 238, TG 461, HDL 46- starting insulin pump, rec to recheck 3 months after getting pump per Dr. Balderrama as felt likely related to poor glycemic control HYPOTHYROIDISM ACQUIRED UNSPEC- Dr. Balderrama 06/15/2005 03/30/2013 Overview: on synthroid extremely high dose 06/15- nl TSH, free T4 on 350mcg of synthroid Routine general medical exam ination at a [facility] care facility 06/15/2005 01/14/2010 Overview: PE: 12/16 pap: s/p hyst mammo: order colon: 2007- normal per pt- obtain report 01/2005- hx of multiple polyps removed started getting colonoscopies 1995, [facility], gets yearly colon mother of colon ca, multiple relatives with hx colon ca dexa: s/p hyst, has single ovary, likely perimenopausal. calcium: ensure 2/day, vitamin D def- on supplements, calcium supp 600mg tid exercise: Stairs a few times a day in her house, otherwise unable due to chronic pain PT DISCHARGED FROM CLINIC 08/30/08- PT WILL ESTABLISH WITH ANOTHER PRIMARY CLINIC Tobacco use disorder 06/15/2005 008 Overview: has tried nicotrol inhaler, gum, zyban 06/15 Type 2 diabetes mellitus wit h diabetic neuropathy 07/11/1975 07/28/2016 Altered mental status 2009 Pseudoseizure 01/14/2010 HTN (hypertension) 0 Encounters Date Type Department Care Team Description 06/17/2023 Refill [facility] [address] [place] [address] Mary Del Cid NP Refill Request (Buprenorphine-naloxone ) 06/15/2023 Refill [facility] [address] [place] [address] Mary Del Cid NP Refill Request (Buprenorphine-naloxone ) from Last 3 Months Immunizations Name Administration Dates Next Due Hepatitis B (Adult) 07/11/1989 Influenza Virus, Unspecified 04/24/2018 Influenza, IIV3 (Age >=3 years) 03/19/20 14,03/30/2013,05/18/2012,2011,06/26/2009,08/21/2008,05/10/2007,1 08/16/2004,06/30/2004 Influenza, IIV4 06/08/2015 Pneumococcal Poly,23-Valent (Pneumovax) 05/10/2007 Td (Age >=7 Years) 07/11/1999 Tdap 12/24/2009 Family History Medical History Relation Name Comments Other Father Murdered Jun 29 Cancer-colon Maternal Aunt 1 Cancer-colon Maternal Aunt 2 Cancer-colon Maternal Aunt 3 Cancer-colon Maternal Aunt 4 Cancer-colon Maternal Aunt 5 Cancer-breast Maternal Aunt 6 Cancer-colon Mother at age 57 Cancer-colon Paternal Aunt 1 Cancer-breast Paternal Aunt 2 Cancer-colon Paternal Grandmother Cancer-breast Paternal Uncle Psychiatric illness Sister 5 Psychiatric illness Sister 6 Psychiatric illness Sister 7 Relation Name Status Comments Brother Alive Tourette's, ADH D, depression Father Alive arthritis Maternal Aunt 1 Maternal Aunt 2 Maternal Aunt 3 Maternal Aunt 4 Maternal Aunt 5 Maternal Aunt 6 Mother colon cancer, a ge 57, depression Paternal Aunt 1 Paternal Aunt 2 Paternal Grandmother Paternal Uncle Sister 1 Alive RA, depression Sister 2 Alive depression Sister 3 Alive depression Sister 4 Alive depression Sister 5 Sister 6 Sister 7 Social History Tobacco Use Types Packs/Day Years Used Date Smoking Tobacco: Some Days Cigarettes 0.3 33 Smokeless Tobacco: Never Tobacco Cessation:Ready to Q uit: Yes; Counseling Given: Yes Comments:E-cigs, slowing use Alcohol Use Standard Drinks/Week Comments Yes 1 (1 standard drink = 0.6 oz pur e alcohol) She reports rare use. Sex and Gender Information Value Date Recorded Sex Assigned at Not on file Gender Identity Not on file Sexual Orientation Not on file Obstetrics History Para Term AB IAB SAB Ectopic Multiple Livin g Live Births 10 3 2 1 7 0 7 0 0 3 Date Outcome GA Total Labor Labor/2nd/3rd Weight Sex Delivery Anes PTL Vanessa A1 A5 Name Cl in Term Term SAB SAB SAB SAB SAB SAB SAB Last Filed Vital Signs Vital Sign Reading Time Taken Comments Blood Pressure 161/90 04/10/2019 7:30 PM CDT Pulse 78 04/10/2019 7:30 PM CDT Temperature 36.7 ??C (98 ??F) 04/10/2019 4:35 PM CDT Respiratory Rate 20 04/10/2019 7:30 PM CDT Oxygen Saturation 97% 04/10/2019 7:30 PM CDT Inhaled Oxygen Concentration - - Weight 98.4 kg (217 lb) 04/10/2019 4:35 PM CDT Height 170.2 cm (5' 7) 04/10/2019 4:35 PM CDT Body Mass Index 33.99 04/10/2019 4:35 PM CDT Plan of Treatment Not on file Medical Devices Implanted Type Area Rd Scientist Device Identifier Shelf Expiration Date Model / Serial / Lot Port Silcn Power 8fr Isp Sgl Lumen - [id number] Implanted:Qty : 1 on 07/19/2011 at [facility] Left: Subclavian Vein 03/19/2013 [id number]# / / [id number] Bone Matrix 2.5cc Bio4 Viable - [id number] Implanted:Qty : 1 on 02/01/2017 by Jovany Gonzalez MD at [facility] Right: Ankle [employer] 01/21/2018 [id number] # / / [id number] Description:Unit No: 034 Plate Ankle 5 Hole Variax - [id number] Implanted:Qty : 1 on 02/01/2017 by Jovany Gonzalez MD at [facility] Right: Ankle [place] [employer] [id number]# / / Description:Sterilization lo ad 3 6 [id number] Screw Foot 3.5x12mm Variax Foot T10 Lock - [id number] Implanted:Qty : 2 on 02/01/2017 by Jovany Gonzalez MD at [facility] Right: Ankle [place] [employer] [id number]# / / Description:Sterilization lo ad 3 6 [id number] Screw Foot 3.5x14mm Variax Foot T10 Lock - [id number] Implanted:Qty : 3 on 02/01/2017 by Jovany Gonzalez MD at [facility] Right: Ankle [employer] [id number]# / / Description:Sterilization lo ad 3 6 [id number] Screw Foot 3.5x46mm Variax Foot T10 Non-Lock - [id number] Implanted:Qty : 1 on 02/01/2017 by Jovany Gonzalez MD at [facility] Right: Ankle [place] [employer] [id number]# / / Description:Sterilization lo ad 3 6 [id number] Screw Foot 3.5x42mm Variax Foot T10 Non-Lock - [id number] Implanted:Qty : 1 on 02/01/2017 by Jovany Gonzalez MD at [facility] Right: Ankle [place] [employer] [id number] # / / Description:Sterilization lo ad 3 [id number] Scientist Device Identifier Shelf Expiration Date Model / Serial / Lot Wire Kirs .[id number] Smoothacemedical - [id number] Explanted:Qty: 2 on 02/01/2017 at [facility] Right: Ankle [employer] 1645-10-0 00# / / Description:Sterilization lo ad 1 8 [id number] Wire Kirs .[id number] Smooth6/Pk - [id number] Explanted:Qty: 1 on 02/01/2017 at [facility] Right: Ankle [employer] 1646-10-0 00# / / Description:Sterilization lo ad 1 8 [id number] Additional Health Concerns Infection Onset Date Last Indicated CLOSTRIDIUM DIFFICILE Comment:12/26/18 Pt states chronic infection, ongoing treatment with oral vanco Order Enteric Precautions + C diff test 11/21/2018; patient to remain in Enteric Precaution for duration of 12/02/2018 hospitalization. Enteric Precautions not required on subsequent admissions provided: 1) >3 weeks since positive C diff test; 2) diarrhea resolved; and 3) patient has completed CDI antibiotics. C diff testing not required on subsequent admissions unless patient is presenting with C diff symptoms 08/17/2018 11/21/2018 Insurance Payer Benefit Plan / Group Subscriber ID Effective Dates Phone Address Type MEDICARE PART A - HB USE ONLY MEDICARE PART A HB ONLY [id number] 2008-Presen t ATTN: CLAIMS [address] [place] [address] MEDICARE PART B - HB USE ONLY MEDICARE PART B HB ONLY [id number] 2009-Prese nt ATTN: CLAIMS [address] [place] [address] MEDICARE PPS HC MEDICARE PPS [id number] 2008-Presen t [address] [place] [address] MEDICARE - PB USE ONLY MEDICARE PB ONLY [id number] 2009-Pres ent ATTN: CLAIMS [address] [place] [address] Advance Directives Documents on File Type Date Recorded Patient Electronic Field Service Engineer Expl anation POLST 12/12/2015 3:32 PM 12/11/15 POLST 11/27/2015 9:12 AM 11/26/15 Healthcare Directive 02/12/2010 Latest Code Status on File Code Status Date Activated Date Inactivated Comments Full Code 01/29/2019 3:30 AM 02/02/2019 5:59 PM Code Status History Code Status Date Activated Date Inactivated Comments Full Code 01/29/2019 3:30 AM 01/29/2019 3:30 AM Full Code 12/25/2018 9:26 PM 12/27/2018 6:33 PM Full Code 12/02/2018 5:03 PM 12/07/2018 7:42 PM Question Answer Comments Code Status Discussion: Discussed Full Code 11/19/2018 12:41 PM 11/27/2018 2:56 PM Question Answer Comments Code Status Discussion: Discussed Care Teams Ceramic Tile Installer Relationship Specialty Start Date End Date Len Adhikari MD PCP - General 01/27/17
--- NOTE | 2023-08-24 08:14 | SUR.PREOP ---
The eye drops brought by the patient (Ketorolac and Prednisolone) are examined and I have determined they are labeled by the patient's pharmacy for this patient as prescribed by the surgeon. The bottles are intact, recently obtained and appear to be correct.
[2023-08-24] MEDS: TETRACAINE 0.5% OPHTH 1 DROP EYE-LEFT ×2 (08:22→08:32)
[2023-08-24 08:26] VITALS: BMI 38.7
[2023-08-24] MEDS: KETOROLAC OPHTH 0.5% 1 DROP EYE-LEFT ×2 (08:30→08:40)
[2023-08-24 08:45] VITALS: BP 148/94; PULSE 74; RESP 16; TEMP 37.2; O2SAT 94
[2023-08-24] MEDS: DEXTROSE 50 % SYRINGE IVP (09:00)
--- NOTE | 2023-08-24 09:04 | SUR.PREOP ---
BG 65. Patient denies any symptoms. Dr. Benites notified. 12.5G D50 ordered and administered.
[2023-08-24] MEDS: TETRACAINE 0.5% OPHTH 2 DROP EYE-LEFT (09:30)
[2023-08-24] MEDS: BALANCED SALT IRRIG SOLN 15 ML EYE-LEFT (09:35)
[2023-08-24 09:55] VITALS: BP 132/68; PULSE 69; RESP 16; TEMP 36.1; O2SAT 97
--- NOTE | 2023-08-24 09:55 | W.ANESCHARGE ---
Anesthesia Charges Start Date/Time Anesthesia Start Date: 08/24/23 Anesthesia Start Time: 09:28 Stop Date/Time Anesthesia Stop Date: 08/24/23 Anesthesia Stop Time: 09:52
--- NOTE | 2023-08-24 09:58 | P.OPTPRC_ITS ---
Procedure Note Date of procedure: 08/24/23 Will [facility] bill your pro fee for this procedure?: Yes Procedure Description: SURGEON: Elham Multani MD PREOPERATIVE DIAGNOSIS: Nuclear sclerotic cataract, left eye. POSTOPERATIVE DIAGNOSIS: Nuclear sclerotic cataract, left eye. NAME OF OPERATION: Phacoemulsification of cataract with posterior chamber intraocular lens implantation in the left eye. ANESTHESIA: Topical. ESTIMATED BLOOD LOSS: Less than 2 cc. COMPLICATIONS: None. PATHOLOGY SPECIMEN: None. INDICATIONS: See consult note for details. The risks, benefits and alternatives of the procedure were explained to the patient, who elected to proceed and signed informed consent to do so. PROCEDURE: The patient was brought to the pre-holding area where the left eye was identified as the operative eye. I placed my initials above this eye. The patient received eye drops consisting of 0.5% tetracaine, 1% tropicamide, 10% phenylephrine, and 0.5% ketorolac. The patient was then brought to the operating room where the left eye was again identified as the operative eye. The eye was prepped with Betadine and draped in the usual sterile ophthalmic fashion. A #15 super-sharp blade was used to create a paracentesis site. 1% non-preserved intracameral lidocaine was injected into the anterior chamber. Endocoat was injected into the anterior chamber. A 2.4 mm keratome was used to create a three-plane self-sealing incision 1 mm anterior to the temporal limbus. A cystotome was used to create an anterior capsular leaflet. The Utrata forceps were used to extend this to form a continuous curvilinear capsulorrhexis. Hydrodissection was performed. The cataract was removed with phacoemulsification using the sslwsc-[id number]-umnasbv technique. The irrigation and aspiration tip was used to remove the remaining cortex. Healon was injected into the capsular bag. An ELLIOTT ZCB00 intraocular lens of 21.5 diopters was injected into the capsular bag. The irrigation and aspiration tip was used to remove the remaining viscoelastic. Balanced salt solution on a cannula was used to hydrate the wound, and the wound was found to be watertight. The pupil was noted to be round. DISPOSITION: The patient was taken to the recovery room and discharged to home in stable condition. The patient was instructed to call me or go to the emergency department with any sudden change, including dramatic loss of vision, severe pain in the eye or eyebrow region, nausea, or vomiting. The patient will follow up in the clinic tomorrow morning.
--- NOTE | 2023-08-24 10:06 | W.ANESCHARGE ---
Anesthesia Charges Start Date/Time Anesthesia Start Date: 08/24/23 Anesthesia Start Time: 09:28 Stop Date/Time Anesthesia Stop Date: 08/24/23 Anesthesia Stop Time: 09:52
== END 2023-08-24 10:27 | disposition home or self-care (01) ==
PROVIDERS: PCP Family Medicine; Visit Provider Ophthalmology
PROC: (CPT 66984; principal; 2023-08-24 08:15)
DX: H25.12 Age-related nuclear cataract, left eye (principal); E11.9 Type 2 diabetes mellitus without complications
CPT/HCPCS: 66984; 00142; 82962; A9270; J2250; J3010; V2632

== ENCOUNTER 2025-06-14 10:22 | Outpatient (CLI) | payer OTHER, MEDICARE, SELFPAY | END 2025-06-14 10:23 | disposition home or self-care (01) | LOC: AMB 07-16 03:59 | PROVIDERS: PCP Family Medicine; Visit Provider Internal Medicine | DX: R07.89 Other chest pain (principal) | CPT/HCPCS: A0425; A0427 ==